=== PATIENT | male | born 1960 | race Caucasian/White ===

== ENCOUNTER 2022-11-26 14:33 | Outpatient (OUT) | payer MEDICARE, MEDICAID, SELFPAY ==
[2022-11-26 14:48] LABS: Basophils Absolute Auto 0.1 10^3/uL (0.0-0.1); Basophils Percent Auto 0.5 % (0.2-2.0); Eosinophils Absolute Auto 0.2 10^3/uL (0.0-0.7); Eosinophils Percent Auto 1.5 % (0.9-7.0); Hematocrit 34.3 % (42.0-54.0); Immature Granulocytes Abs Auto 0.08 10^3/uL (0.00-0.03); Immature Granulocytes Pct Auto 0.8 % (0.0-0.5); Lymphocytes Absolute Auto 2.3 10^3/uL (1.2-3.8); Lymphocytes Percent Auto 22.3 % (20.5-60.0); Mean Corpuscular HGB Conc 32.1 g/dL (29.9-35.2); Mean Corpuscular Hemoglobin 25.3 pg (25.9-34.0); Mean Corpuscular Volume 78.9 fL (80.0-94.0); Mean Platelet Volume 10.6 fL (9.5-13.5); Monocytes Absolute Auto 0.8 10^3/uL (0.3-0.8); Monocytes Percent Auto 7.9 % (1.7-12.0); Neutrophils Absolute Auto 6.9 10^3/uL (1.4-6.5); Platelet Count 305 10^3/uL (150-450); Red Blood Count 4.35 10^6/uL (4.70-6.10); Red Cell Distribution Width 16.6 % (11.0-15.0); White Blood Count 10.3 10^3/uL (4.0-11.0)
[2022-11-26 16:01] LABS: Alanine Aminotransferase 23 U/L (16-63); Albumin Globulin Ratio 0.9; Albumin Level 3.4 g/dL (3.4-5.0); Alkaline Phosphatase 87 U/L (46-116); Aspartate Amino Transferase 15 U/L (15-37); BUN Creatinine Ratio 24.5; Bilirubin Total 0.4 mg/dL (0.2-1.0); Calcium 8.9 mg/dL (8.5-10.1); Carbon Dioxide 28.2 mmol/L (21.0-32.0); Chloride 102 mmol/L (98-107); Estimated GFR (African America >60 (>=60); Estimated GFR (Non-African Ame 52 (>=60); Glucose 311 mg/dL (74-106); Potassium 4.2 mmol/L (3.5-5.1); Sodium 138 mmol/L (136-145); Total Protein 7.4 g/dL (6.4-8.2)
== END 2022-11-26 14:34 | disposition home or self-care (01) ==
LOC: LAB 14:37
PROVIDERS: PCP Family Medicine; Visit Provider Nurse Practitioner Acute Care
DX: I50.43 Acute on chronic combined systolic (congestive) and diastolic (congestive) heart failure (principal)
CPT/HCPCS: 36415; 80053; 83880; 85025

== ENCOUNTER 2022-12-12 12:18 | Outpatient (OUT) | payer MEDICARE, MEDICAID, SELFPAY ==
[2022-12-12 12:41] LABS: BUN Creatinine Ratio 30.5; Calcium 8.9 mg/dL (8.5-10.1); Carbon Dioxide 30.1 mmol/L (21.0-32.0); Chloride 97 mmol/L (98-107); Estimated GFR (African America >60 (>=60); Estimated GFR (Non-African Ame >60 (>=60); Glucose 152 mg/dL (74-106); Potassium 4.1 mmol/L (3.5-5.1); Sodium 133 mmol/L (136-145)
== END 2022-12-12 12:19 | disposition home or self-care (01) ==
PROVIDERS: PCP Family Medicine; Visit Provider Nurse Practitioner Acute Care
DX: I50.9 Heart failure, unspecified (principal)
CPT/HCPCS: 36415; 80048

== ENCOUNTER 2023-02-26 14:01 | Outpatient (RCR) | payer MEDICARE, MEDICAID, SELFPAY ==
[2023-02-26] MEDS: BUMETANIDE 1 MG/4 ML VIAL 2 MG IVP (14:26)
[2023-02-26 14:47] VITALS: BP 158/79; PULSE 80; RESP 24; TEMP 36.6; O2SAT 96
--- NOTE | 2023-02-26 14:50 | PC.NURSE ---
1410: Pt. to [facility] amb. accompanied by . Seated in recliner. VSS. Indwelling PICC line in place to right arm. Site without s&s of infiltration or infection. Able to aspirate blood easily, flushes easily. 1426: Medicated with Bumex 2mg ivp slow as ordered. Pt. requests PICC line dressing be changed. Old dressing to picc removed. Using sterile technique, site cleansed chlorhexadine. CHG oposite dressing applied over insertion site. Pt. tolerated without c/o. 1455: Pt. denies c/o or needs. VSS. D/c'd amb. to home with .
[2023-02-26 14:55] VITALS: BP 155/79; PULSE 78; RESP 20; O2SAT 97
== END 2023-03-10 23:59 | disposition home or self-care (01) ==
LOC: INF 14:01
PROVIDERS: PCP Family Medicine; Visit Provider Nurse Practitioner
DX: I50.43 Acute on chronic combined systolic (congestive) and diastolic (congestive) heart failure (principal)
CPT/HCPCS: 96374

== ENCOUNTER 2023-06-08 14:46 | Outpatient (RCR) | payer MEDICARE, MEDICAID, SELFPAY ==
[2023-06-08 14:50] VITALS: BP 150/85; PULSE 69; RESP 20; TEMP 36.4; O2SAT 977
[2023-06-08 15:14] VITALS: BP 150/85
[2023-06-08] MEDS: BUMETANIDE 1 MG/4 ML VIAL 2 MG IVP (15:14)
== END 2023-06-10 23:59 | disposition home or self-care (01) ==
LOC: INF 14:46
PROVIDERS: PCP Family Medicine; Visit Provider Internal Medicine Interventional Cardiology
DX: I50.43 Acute on chronic combined systolic (congestive) and diastolic (congestive) heart failure (principal)
CPT/HCPCS: 96374

== ENCOUNTER 2023-06-12 14:12 | Outpatient (OUT) | payer MEDICARE, MEDICAID, SELFPAY ==
[2023-06-12 14:38] LABS: Anion Gap 8.8; BUN Creatinine Ratio 27.4; Calcium 8.4 mg/dL (8.5-10.1); Chloride 106 mmol/L (98-107); Estimated GFR (African America >60 (>=60); Estimated GFR (Non-African Ame >60 (>=60); Glucose 109 mg/dL (74-106); Potassium 4.8 mmol/L (3.5-5.1); Sodium 138 mmol/L (136-145)
== END 2023-06-12 14:13 | disposition home or self-care (01) ==
PROVIDERS: PCP Family Medicine; Visit Provider Internal Medicine Interventional Cardiology
DX: I50.32 Chronic diastolic (congestive) heart failure (principal)
CPT/HCPCS: 36415; 80048

== ENCOUNTER 2023-08-05 12:58 | Outpatient (OUT) | payer MEDICARE, MEDICAID, SELFPAY ==
[2023-08-05 15:19] LABS: Anion Gap 12.8; BUN Creatinine Ratio 28.8; Calcium 9.3 mg/dL (8.5-10.1); Carbon Dioxide 32.2 mmol/L (21.0-32.0); Chloride 98 mmol/L (98-107); Estimated GFR (African America >60 (>=60); Estimated GFR (Non-African Ame >60 (>=60); Glucose 154 mg/dL (74-106); Sodium 139 mmol/L (136-145)
== END 2023-08-05 12:59 | disposition home or self-care (01) ==
LOC: LAB 13:02
PROVIDERS: PCP Family Medicine; Visit Provider Internal Medicine Interventional Cardiology
DX: I50.41 Acute combined systolic (congestive) and diastolic (congestive) heart failure (principal)
CPT/HCPCS: 36415; 80048

== ENCOUNTER 2023-11-09 14:35 | Outpatient (OUT) | payer MEDICARE, MEDICAID, SELFPAY ==
--- NOTE | 2023-11-09 | XR_ITS ---
The [address] [address] Patient Name: MATT HOWARD MRN: [id number] date: 1960 Sex: M Assigned Patient Location: Current Patient Location: Accession/Order Number: [id number] Exam Date: 11/09/2023 14:36 Report Date: 11/11/2023 06:29 At the request of: MIRIAN BRYAN Procedure: XR foot LT min 3V PROCEDURE: XR foot LT min 3V HISTORY: LEFT FOOT PAIN COMPARISON: None. FINDINGS: BONES:Prior amputation of first toe at the metatarsophalangeal joint. Partial loss of the tuft of second distal phalanx. SOFT TISSUES:Soft tissue swelling of second toe. Dorsal medial soft tissue swelling. EFFUSION:None visible. OTHER: Negative. XR/XR foot LT min 3V IMPRESSION: 1. Soft tissue swelling of second toe. Changes to the tip of the second distal phalanx may represent osteomyelitis or sequela of prior surgery. 2. Prior amputation of first toe. Electronically authenticated by: KARIN RDZ Date: 11/11/2023 06:29
== END 2023-11-09 14:36 | disposition home or self-care (01) ==
LOC: WC 14:36
PROVIDERS: PCP Family Medicine; Visit Provider Physician Assistant
DX: E11.621 Type 2 diabetes mellitus with foot ulcer (principal); L97.418 Non-pressure chronic ulcer of right heel and midfoot with other specified severity; L97.522 Non-pressure chronic ulcer of other part of left foot with fat layer exposed; M79.672 Pain in left foot
CPT/HCPCS: 11043; 73630

== ENCOUNTER 2023-11-10 13:30 | Outpatient (OUT) | payer MEDICARE, MEDICAID, SELFPAY | END 2023-11-10 13:31 | disposition home or self-care (01) | LOC: WC 13:30 | PROVIDERS: PCP Family Medicine; Visit Provider Podiatrist Foot & Ankle Surgery | DX: E11.621 Type 2 diabetes mellitus with foot ulcer (principal); L97.418 Non-pressure chronic ulcer of right heel and midfoot with other specified severity; L97.522 Non-pressure chronic ulcer of other part of left foot with fat layer exposed | CPT/HCPCS: G0463 ==

== ENCOUNTER 2023-11-10 14:17 | Inpatient (IN) | payer MEDICARE, MEDICAID, SELFPAY ==
[2023-11-10] VITALS (9 sets, daily range): BP systolic 149–187; BP diastolic 76–84; PULSE 71–110; TEMP 36.4–36.6; O2SAT 96–100; BMI 38.6; BMI 38.8
--- NOTE | 2023-11-10 14:18 | ED_ITS ---
HPI HPI - General Adult General Chief complaint: Wound/Laceration Stated complaint: WOUND CHECK Time Seen by Provider: 11/10/23 14:17 Source: patient Mode of arrival: walk-in Limitations: no limitations History of Present Illness HPI narrative: Patient is a 63-year-old male who presents to the emergency department at the recommendation of podiatry service for ER evaluation, admission and toe amputation tomorrow. Patient was seen in the office prior to arrival. He has a history of diabetes. 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 Patient reports that he has had hot and cold chills with decreased appetite and occasional vomiting over the last several days. His left second toe was debrided in the podiatry office and he was referred to the ER so he c ould be admitted for toe amputation. He has not had any significant drainage, he does report pain to the toe. No medications prior to arrival. He is anticoagulated with Eliquis. He was prescribed doxycycline and Augmentin yesterday by podiatry services. Related Data Home Medications ?Medication ?Instructions ?Recorded ?Confirmed amoxicillin 875 mg-potassium tab 11/10/23 clavulanate 125 mg tablet apixaban 5 mg tablet (Eliquis) mg 11/10/23 aspirin 81 mg tablet,delayed mg 11/10/23 release atorvastatin 80 mg tablet mg 11/10/23 bumetanide 1 mg tablet 1 mg PO Q12H 11/10/23 11/10/23 carvedilol 3.125 mg tablet mg 11/10/23 carvedilol 6.25 mg tablet mg 11/10/23 clonazepam 1 mg tablet mg 11/10/23 dapagliflozin propanediol 10 mg mg 11/10/23 tablet (Farxiga) daridorexant 25 mg tablet (Quviviq) mg PO 11/10/23 diclofenac sodium 1 % topical gel topical 11/10/23 diphenoxylate-atropine 2.5 tab 11/10/23 mg-0.025 mg tablet divalproex 125 mg tablet,delayed mg PO 11/10/23 release divalproex 500 mg tablet,delayed mg PO 11/10/23 release doxycycline hyclate 100 mg capsule mg 11/10/23 gabapentin 800 mg tablet mg 11/10/23 isosorbide mononitrate 30 mg mg PO 11/10/23 tablet,extended release 24 hr metformin 500 mg tablet mg 11/10/23 midodrine 5 mg tablet mg 11/10/23 moxifloxacin 0.5 % eye drops drp 11/10/23 [id number] 3.5 drp ophthalmic (eye) 11/10/23 mg/mL-10,000 unit/mL-0.1% eye drops nitroglycerin 0.4 mg sublingual mg 11/10/23 tablet ondansetron HCl 8 mg tablet mg 11/10/23 oxycodone 5 mg tablet mg 11/10/23 oxycodone myristate 18 mg capsule mg 11/10/23 sprinkle extended release 12hr(DON'T CRUSH) (Xtampza ER) pen needle, diabetic 32 gauge x 11/10/23 11/10/23 (Unifine Pentips) potassium chloride 20 mEq meq PO 11/10/23 tablet,extended release(part/cryst) prednisolone acetate 1 % eye drp ophthalmic (eye) 11/10/23 drops,suspension sacubitril 24 mg-valsartan 26 mg tab 11/10/23 tablet (Entresto) semaglutide 1 mg/dose (4 mg/3 mL) mg subcut 11/10/23 subcutaneous pen injector (Ozempic) spironolactone 50 mg tablet mg 11/10/23 tamsulosin 0.4 mg capsule mg PO 11/10/23 valacyclovir 1 gram tablet mg 11/10/23 Allergies Allergy/AdvReac Type Severity Reaction Status Date / Time metoclopramide [From Reglan] AdvReac Intermediate Rash Verified 11/10/23 14:29 polyethylene glycol AdvReac Intermediate Rash Verified 11/10/23 14:29 [From Golytely] polyethylene glycol 3350 AdvReac Intermediate Rash Verified 11/10/23 14:29 [From Golytely] potassium chloride AdvReac Intermediate Rash Verified 11/10/23 14:29 [From Golytely] promethazine [From Phenergan] AdvReac Intermediate rash Verified 11/10/23 14:29 sodium [From Golytely] AdvReac Intermediate Rash Verified 11/10/23 14:29 sodium bicarbonate AdvReac Intermediate Rash Verified 11/10/23 14:29 [From Golytely] sodium chloride AdvReac Intermediate Rash Verified 11/10/23 14:29 [From Golytely] sodium sulfate AdvReac Intermediate Rash Verified 11/10/23 14:29 [From Golytely] Sulfa (Sulfonamide AdvReac Intermediate Rash Verified 11/10/23 14:29 Antibiotics) Opioid HPI Opioid Management Most Recent Opioid Data: No Data to Display Review of Systems ROS Constitutional Denies: fever or chills Ears, nose, mouth, and throat Denies: throat pain or nasal congestion Respiratory Denies: shortness of breath Gastrointestinal Reports: nausea Musculoskeletal Denies: back pain or neck pain Integumentary/Breast Denies: rash Hematologic/Lymphatic Denies: easy bruising or easy bleeding Exam Narrative Exam Narrative: Gen.: Awake, alert, in no distress Head: Normocephalic, atraumatic ENT: Moist mucous membranes Respiratory: No respiratory distress Extremities: Moves extremities equally, Left great toe Surgically absent, left second toe with open purulent area distally secondary to debridement with no significant surrounding erythema Psych: Normal mood and affect Neuro: No focal neuro deficit Skin: Warm, dry, intact Constitutional Vital Signs, click to edit/add: Last Vital Signs Temp 97.9 F 11/10/23 14:23 Pulse 81 11/10/23 14:23 Resp 20 11/10/23 14:23 BP 187/84 H 11/10/23 14:23 Pulse Ox 97 11/10/23 14:23 Course Vital Signs Vital signs: Vital Signs Temperature 97.9 F 11/10/23 14:23 Pulse Rate 81 11/10/23 14:23 Respiratory Rate 20 11/10/23 14:23 Blood Pressure 187/84 H 11/10/23 14:23 Pulse Oximetry 97 11/10/23 14:23 Temperature 97.9 F 11/10/23 14:23 Pulse Rate 81 11/10/23 14:23 Respiratory Rate 20 11/10/23 14:23 Blood Pressure 187/84 H 11/10/23 14:23 Pulse Oximetry 97 11/10/23 14:23 Medical Decision Making [facility] Narrative Medical decision making narrative: Ultrasound-guided IV obtained, patient treated with Dilaudid and Zofran for comfort and given Zosyn, vancomycin. Discussed with hospitalist, Dr. Centeno and the patient will be admitted for antibiotics and toe amputation tomorrow. Labs, cultures obtained. SHARED APC VISIT, PHYSICIAN ATTESTATION: Khgy-pa-dney I performed a substantive part of the MDM during the patient?s E/M visit. I personally evaluated and examined the patient. I personally made or approved the documented management plan and acknowledge its risk of complications. Medical Records Medical records reviewed: Yes I reviewed the patient's medical records Discharge Plan Discharge Chief Complaint: Wound/Laceration Patient Disposition: Admitted As Inpatient Time of Disposition Decision: 14:57 Prescriptions / Home Meds: No Action atorvastatin 80 mg tablet aspirin 81 mg tablet,delayed release (DR/EC) bumetanide 1 mg tablet 1 mg PO Q12H amoxicillin-pot clavulanate 875-125 mg tablet Eliquis 5 mg tablet carvedilol 3.125 mg tablet metformin 500 mg tablet carvedilol 6.25 mg tablet doxycycline hyclate 100 mg capsule ondansetron HCl 8 mg tablet isosorbide mononitrate 30 mg tablet extended release 24 hr PO clonazepam 1 mg tablet midodrine 5 mg tablet diphenoxylate-atropine 2.5-0.025 mg tablet potassium chloride 20 mEq tablet,ER particles/crystals PO gabapentin 800 mg tablet nitroglycerin 0.4 mg tablet, sublingual oxycodone 5 mg tablet moxifloxacin 0.5 % drops diclofenac sodium 1 % gel TOPICAL Xtampza ER 18 mg cap,sprinkl,ER12hr(DONT CRUSH) Quviviq 25 mg tablet PO valacyclovir 1 gram tablet divalproex 500 mg tablet,delayed release (DR/EC) PO prednisolone acetate 1 % drops,suspension OPHTHALMIC (EYE) tamsulosin 0.4 mg capsule PO neomycin-polymyxin B-dexameth 3.5mg/mL-10,000 unit/mL-0.1 % drops,suspension OPHTHALMIC (EYE) divalproex 125 mg tablet,delayed release (DR/EC) PO spironolactone 50 mg tablet (DME) pen needle, diabetic [Unifine Pentips] 32 gauge x 5/32 needle MISCELLANEOUS dapagliflozin propanediol [Farxiga] 10 mg tablet Entresto 24-26 mg tablet Ozempic 1 mg/dose (4 mg/3 mL) pen injector SUBCUT Print Language: Telugu Referrals: Elin Liz MD [Primary Care Provider] - 1 week
[2023-11-10] MEDS: HYDROMORPHONE HCL 0.5 MG/0.5 ML SYRINGE IV (14:57)
[2023-11-10] MEDS: ONDANSETRON PF 4 MG/2 ML VIAL IV (14:57)
[2023-11-10] MEDS: PIPERACILLIN SODIUM/TAZOBACTAM 3.375 GM in 0.9 % SODIUM CHLORIDE 50 ML IV (14:57)
[2023-11-10] MEDS: 0.9 % SODIUM CHLORIDE 1,000 ML 200 ML IV (14:58)
[2023-11-10 15:06] LABS: Basophils Percent Auto 0.6 % (0.2-2.0); Eosinophils Absolute Auto 0.1 10^3/uL (0.0-0.7); Eosinophils Percent Auto 1.3 % (0.9-7.0); Hematocrit 29.7 % (42.0-54.0); Hemoglobin 9.4 g/dL (14.0-18.0); Immature Granulocytes Abs Auto 0.02 10^3/uL (0.00-0.03); Immature Granulocytes Pct Auto 0.3 % (0.0-0.5); Lymphocytes Percent Auto 28.5 % (20.5-60.0); Mean Corpuscular HGB Conc 31.6 g/dL (29.9-35.2); Mean Corpuscular Hemoglobin 26.3 pg (25.9-34.0); Mean Platelet Volume 11.3 fL (9.5-13.5); Monocytes Absolute Auto 0.5 10^3/uL (0.3-0.8); Neutrophils Absolute Auto 4.4 10^3/uL (1.4-6.5); Neutrophils Percent Auto 62.3 % (43.0-75.0); Platelet Count 231 10^3/uL (150-450); Red Blood Count 3.58 10^6/uL (4.70-6.10); Red Cell Distribution Width 15.2 % (11.0-15.0); White Blood Count 7.1 10^3/uL (4.0-11.0)
[2023-11-10 15:07] LABS: PCO2 VBG 37.7 mmHg (40.0-52.0); pH VBG 7.416 (7.330-7.430)
[2023-11-10 15:22] LABS: Alanine Aminotransferase 24 U/L (16-63); Albumin Globulin Ratio 0.8; Alkaline Phosphatase 79 U/L (46-116); Anion Gap 10.8; Aspartate Amino Transferase 19 U/L (15-37); Bilirubin Total 0.5 mg/dL (0.2-1.0); C Reactive Protein <0.50 mg/dL (<=0.50); Calcium 8.5 mg/dL (8.5-10.1); Carbon Dioxide 29.3 mmol/L (21.0-32.0); Chloride 104 mmol/L (98-107); Estimated GFR (African America >60 (>=60); Estimated GFR (Non-African Ame >60 (>=60); Glucose 110 mg/dL (74-106); Potassium 4.1 mmol/L (3.5-5.1); Sodium 140 mmol/L (136-145)
[2023-11-10 15:24] LABS: Prothrombin Time 10.6 sec (9.0-11.6)
[2023-11-10 15:25] LABS: Lactate/Lactic Acid 0.8 mmol/L (0.4-2.0)
--- NOTE | 2023-11-10 15:27 | P.HP_ITS ---
<Statement entered by Shaikh Taryn MD - 11/10/23 17:48> This documentation has been reviewed and approved.Patient not personally seen or interviewed. However, his chart was reviewed, and his case was discussed with ED provider, hospitalist [employer]. Agree with treatment plan. HPI H&P: HPI History of Present Illness Chief complaint: WOUND CHECK, Diabetic Toe Infection Narrative: 11/10/23 9229 This is a 63-year-old male patient with a complicated past medical history as outlined below including type II DM with history of multiple nonhealing diabetic wounds on his bilateral feet, CAD s/p ND x 4, CHF with unknown EF, hyperlipidemia, and A-fib; who presented to the ED directly from Dr Emery's office (podiatry) due to a nonhealing diabetic wound of his left second toe. The toe is likely gangrenous and amputation is planned for tomorrow per Dr Emery. Workup in the ED revealed anemia (9.4), with all other labs unremarkable. Imaging and wound cultures had been obtained in the outpatient podiatry office. Blood cultures x 2 were obtained in the ER and the patient is being admitted as an inpatient to the hospitalist service pending surgical intervention tomorrow per Dr Emery. At the time of my exam the patient is resting comfortably on his ED cart. His left second toe has a large wound on the end with purulent drainage and a foul odor. He has a boot in place on his right foot and reports that his right forefoot has been amputated completely after multiple toe amputations in the past, but has not been healing well since amputation in March. He also follows with Dr Emery for this wound as well. Due to the patient's sig nificant cardiac history, we will consult cardiology for preoperative cardiac evaluation. The patient reports that he had a 2D echo obtained within the last [address] Gomez ([facility]). We will obtain these records today if possible. Opioid HPI Opioid Management Most Recent Pain and Opioid Data: Last Pain Scale 8 11/10/23 14:57 Last MAR Pain Assessment 11/10/23 14:57 Last ORT Total Score 1 11/10/23 16:04 Last ORT Risk Category Low Risk 11/10/23 16:04 Review of Systems ROS Status of ROS 10 or more systems reviewed and unremark able except as noted in history and below [facility] Medical History (Updated 11/10/23 @ 16:46 by Verito Chávez) Cardiomegaly ?I51.7 - Cardiomegaly (ICD-10) Past heart attack ?I25.2 - Old myocardial infarction (ICD-10) DM neuropathy, type II diabetes mellitus ?E11.40 - Type 2 diabetes mellitus with diabetic neuropathy, unspecified (ICD-10) DM2 (diabetes mellitus, type 2) ?E11.9 - Type 2 diabetes mellitus without complications (ICD-10) A-fib ?I48.91 - Unspecified atrial fibrillation (ICD-10) CHF (congestive heart failure) ?I50.9 - Heart failure, unspecified (ICD-10) ROBYN (obstructive sleep apnea) ?G47.33 - Obstructive sleep apnea (adult) (pediatric) (ICD-10) COPD (chronic obstructive pulmonary disease) ?J44.9 - Chronic obstructive pulmonary disease, unspecified (ICD-10) CAD (coronary artery disease) ?I25.10 - Atherosclerotic heart disease of [place] coronary artery without angina pectoris (ICD-10) Surgical History (Updated 11/10/23 @ 16:46 by Verito Chávez) H/O skin graft ?Z94.5 - Skin transplant status (ICD-10) Amputated toe ?S98.139A - Complete traumatic amputation of one unspecified lesser toe, initial encounter (ICD-10) History of appendectomy ?Z90.49 - Acquired absence of other specified parts of digestive tract (ICD- 10) Gastric bypass status for obesity ?Z98.84 - Bariatric surgery status (ICD-10) Family History (Updated 11/10/23 @ 16:40 by Verito Chávez) Mother Family history of CHF (congestive heart failure) Family history of COPD (chronic obstructive pulmonary disease) Family history of cancer Family history of hypertension Family history of myocardial infarction Father Family history of CHF (congestive heart failure) Family history of COPD (chronic obstructive pulmonary disease) Family history of cancer Family history of hypertension Family history of myocardial infarction Family history of stroke Brother Family history of CHF (congestive heart failure) Family history of diabetes mellitus Family history of hypertension Family history of myocardial infarction Family history of stroke Sister Family history of diabetes mellitus Family history of hypertension Family history of myocardial infarction Social History (Updated 11/10/23 @ 16:41 by Verito Chávez) Within the past year, how often did you have a drink containing alcohol: never Score interpretation: A score less than 4 is consistent with normal alcohol consumption. Smoking status: Former smoker Non-prescribed substance use: denies use Previous occupational history: disabled Highest level of school completed/degree received: Associate degree: occupational, technical, vocational program Are you now , , , , never or living with a partner: Little interest or pleasure in doing things: not at all Feeling down, depressed, or hopeless: not at all Feel stressed/tense/nervous/anxious/difficulty sleeping: not at all Meds Home Medications and Allergies Home Medications ?Medication ?Instructions ?Recorded ?Confirmed ?Type amoxicillin 875 mg-potassium 1 tab PO BID 11/10/23 11/10/23 History clavulanate 125 mg tablet apixaban 5 mg tablet (Eliquis) 5 mg PO BID 11/10/23 11/10/23 History aspirin 81 mg tablet,delayed 81 mg PO .QD 11/10/23 11/10/23 History release atorvastatin 80 mg tablet 80 mg PO .QHS 11/10/23 11/10/23 History bumetanide 1 mg tablet 1 mg PO Q12H 11/10/23 11/10/23 History clonazepam 1 mg tablet 0.5 mg PO .QHS 11/10/23 11/10/23 History doxycycline hyclate 100 mg capsule 100 mg PO Q12H 11/10/23 11/10/23 History gabapentin 800 mg tablet 800 mg PO Q8H 11/10/23 11/10/23 History isosorbide mononitrate 30 mg 90 mg PO .QD 11/10/23 11/10/23 History tablet,extended release 24 hr metformin 500 mg tablet 500 mg PO BIDWM 11/10/23 11/10/23 History moxifloxacin 0.5 % eye drops 1 drp ophthalmic (eye) QID 11/10/23 11/10/23 History nitroglycerin 0.4 mg sublingual 0.4 mg sublingual Q5M PRN chest 11/10/23 11/10/23 History tablet pain ondansetron HCl 8 mg tablet 8 mg PO Q8H PRN nausea and vomiting 11/10/23 11/10/23 History oxycodone 5 mg tablet 5 mg PO Q8H PRN pain 11/10/23 11/10/23 History oxycodone myristate 18 mg capsule 18 mg PO Q12H 11/10/23 11/10/23 History sprinkle extended release 12hr(DON'T CRUSH) (Xtampza ER) pen needle, diabetic 32 gauge x 11/10/23 11/10/23 History 5/32 (Unifine Pentips) potassium chloride 20 mEq 20 meq PO BID 11/10/23 11/10/23 History tablet,extended release(part/cryst) prednisolone acetate 1 % eye 1 drp ophthalmic (eye) Q12H 11/10/23 11/10/23 History drops,suspension sacubitril 24 mg-valsartan 26 mg 1 tab PO BID 11/10/23 11/10/23 History tablet (Entresto) spironolactone 50 mg tablet 50 mg PO .QD 11/10/23 11/10/23 History valacyclovir 1 gram tablet 500 mg PO Q8H 11/10/23 11/10/23 History Allergies Allergy/AdvReac Type Severity Reaction Status Date / Time metoclopramide [From Reglan] AdvReac Intermediate Rash Verified 11/10/23 14:29 polyethylene glycol AdvReac Intermediate Rash Verified 11/10/23 14:29 [From Golytely] polyethylene glycol 3350 AdvReac Intermediate Rash Verified 11/10/23 14:29 [From Golytely] potassium chloride AdvReac Intermediate Rash Verified 11/10/23 14:29 [From Golytely] promethazine [From Phenergan] AdvReac Intermediate rash Verified 11/10/23 14:29 sodium [From Golytely] AdvReac Intermediate Rash Verified 11/10/23 14:29 sodium bicarbonate AdvReac Intermediate Rash Verified 11/10/23 14:29 [From Golytely] sodium chloride AdvReac Intermediate Rash Verified 11/10/23 14:29 [From Golytely] sodium sulfate AdvReac Intermediate Rash Verified 11/10/23 14:29 [From Golytely] Sulfa (Sulfonamide AdvReac Intermediate Rash Verified 11/10/23 14:29 Antibiotics) Exam Constitutional Vital Signs, click to edit/add: Last Vital Signs Temp 97.9 F 11/10/23 14:23 Pulse 81 11/10/23 14:23 Resp 20 11/10/23 14:23 BP 187/84 H 11/10/23 14:23 Pulse Ox 97 11/10/23 14:23 Common normals: no apparent distress, oriented x3, alert and well nourished General appearance: cooperative Nutritional appearance: overweight Orientation/consciousness: Yes awake HENMT Common normals: normocephalic, head/scalp atraumatic, hearing grossly normal bilaterally, external nose normal and moist oral mucous membranes Eye Common normals: PERRL, EOMs intact bilaterally, conjunctivae normal and no scleral icterus Alignment: alignment normal Eyelid: eyelids normal Neck & C-Spine Common normals: full ROM, supple and no JVD Chest Common normals: inspection of chest normal Chest: symmetrical chest wall rise Respiratory Common normals: normal respiratory effort, no retractions, no use of accessory muscles and clear to auscultation bilaterally Auscultation: diminished lung sounds (Very diminished throughout, but no visible dyspnea or distress) Cardio Common normals: no JVD, regular rate, regular rhythm, S1 normal heart sound, S2 normal heart sound, no gallops, no clicks, no rub and peripheral pulses 2+ throughout Heart sounds: murmur (HSM 2/6) GI Common normals: Normal to inspection, nondistended, normoactive bowel sounds present, soft to palpation, non-tender, no hepatosplenomegaly, no masses and no bruits Bladder/kidney exam: bladder normal to palpation Extremity General: no cyanosis Right lower extremity: foot and digits (Prev forefoot amputation) Left lower extremity: foot and digits (Prev L gr toe amp. L 2nd toe w/ distal gangrenous wound) Other: BLE venous stasis dermatitis Neuro Helen Coma Scale: GCS not evaluated Common normals: CN's II-XII intact bilaterally, moves all extremities, no focal motor deficits and no sensory deficits noted Speech: speech normal Psych Common normals: mental status grossly normal, thought process normal, affect normal and activity/motor behavior normal Results Labs Labs: Short CBC 11/10/23 Range/Units 14:52 WBC 7.1 (4.0-11.0) 10^3/uL Hgb 9.4 L (14.0-18.0) g/dL Hct 29.7 L (42.0-54.0) % Plt Count 231 (150-450) 10^3/uL Laboratory Tests 11/10/23 14:52 INR 1.00 VBG pH 7.416 VBG pCO2 37.7 L Sodium 140 Potassium 4.1 Chloride 104 Carbon Dioxide 29.3 Anion Gap 10.8 BUN 19.0 H Creatinine 0.95 Est GFR (Non-Af Amer) >60 BUN/Creatinine Ratio 20.0 Glucose 110 H Lactate 0.8 Calcium 8.5 Total Bilirubin 0.5 AST 19 ALT 24 Alkaline Phosphatase 79 C-Reactive Protein <0.50 Total Protein 7.0 Albumin 3.0 L Globulin 4.0 Albumin/Globulin Ratio 0.8 Procalcitonin <0.05 ABG ABG results: 11/10/23 14:52 VBG pH 7.416 VBG pCO2 37.7 L Pulse Oximetry Attestation: I have reviewed the pertinent pulse oximetry results. Assessment and Plan Assessment and Plan (1) Diabetic ulcer of toe: Assessment and Plan: Chronic * Adm Inpatient * We expect greater than a 2 midnight stay for medically necessary hospital care including: IVPB antibiotics, specialty podiatry care and surgical intervention, close nursing monitoring of pre and post operative wound, specialty cardiac preop evaluation. * Non-healing DM wound of the L 2nd distal toe - suspect gangrenous * C/S Dr Emery for planned amputation tomorrow - we appreciate his assistance with this pt's care * Defer all post op pain meds, WB and PT/OT orders, DVT prophylaxis to the podiatry team * IVPB Zosyn and Vanco (pharm to dose) - failed multiple outpatient PO antibiotics including most recently Doxy/Augmentin * PO Oxycodone & IVP Morphine for pre-op pain management * LR at 75 ml/hr - Gentle IVF in pt w/ CHF hx on a 2L daily fluid restriction * NPO at midnight * Daily CBC, CMP (2) CAD (coronary artery disease): Assessment and Plan: Chronic * s/p ND x 4 - denies CP currently * Obtain an EKG for pre-op evaluation * Cardiology consult for pre-op cardiology eval. * Follows outpatient with Dr Gomez w/ [facility] * Continue home daily ASA, statin, Entresto, Imdur, Coreg (3) COPD (chronic obstructive pulmonary disease): Assessment and Plan: Chronic * Duoneb q4h PRN * Does not appear to be in exacerbation at this time (4) ROBYN (obstructive sleep apnea): Assessment and Plan: Chronic * Continue home CPAP w/ O2 bled in at 2L at [facility] (5) CHF (congestive heart failure): Assessment and Plan: Chronic * Unknown EF - Obtain most recent 2D Echo from [facility] (Done in ) * Continue home Entresto, spironolactone, and bumex * Continue home 2L fluid restriction * Gentle IVF at 75/hr * Daily weights/strict I&O (6) A-fib: Assessment and Plan: Chronic * Continue home Coreg for rate control * Hold home Eliquis for surgery tomorrow * Last Eliquis dose on 11/09/23 AM dose (7) DM2 (diabetes mellitus, type 2): Assessment and Plan: Chronic * Continue home metformin * ACHS glucometer checks * Med CC diet * Med SSI glucose correction scale (8) DM neuropathy, type II diabetes mellitus: Assessment and Plan: Chronic * Continue home gabapentin
[2023-11-10 15:39] LABS: PROCALCITONIN <0.05 ng/mL (0.00-0.50)
[2023-11-10] MEDS: VANCOMYCIN HCL 2,000 MG in 0.9 % SODIUM CHLORIDE 500 ML 250 MG IV (16:05)
--- NOTE | 2023-11-10 16:20 | ECG_ITS ---
[facility] Test Date: 2023-11-10 Pat Name: MATT HOWARD Department: Room: [facility] Gender: Male [facility] [employer]: : 1960 Requested By: SURAJ LLANOS Order Number: [id number] Reading MD: JONY MITTAL Measurements Intervals [place] Rate: 74 P: NE: 200 QRS: 2 QRSD: 107 T: 42 QT: 385 QTc: 427 Interpretive Statements Sinus rhythm with first degree AV block LOW QRS VOLTAGE IN PRECORDIAL LEADS [QRS DEFLECTION < 1.0 mV IN CHEST LEADS] No previous ECG available for comparison Electronically Signed On 11-11-2023 6:57:48 EDT by JONY MITTAL
[2023-11-10] MEDS: LACTATED RINGER'S SOLUTION 1,000 ML 75 ML IV (16:56)
--- NOTE | 2023-11-10 17:33 | DIETREC ---
Current diet order: 1800 kcal CCD. Recommend add Heart Healthy (includes sodium, fat, and caffeine restrictions) to diet order d/t pt's cardiac history.
[2023-11-10] MEDS: OXYCODONE HCL 5 MG TABLET PO (18:51)
--- NOTE | 2023-11-10 20:01 | RESP.RT ---
No PRN breathing tx given. Pt denies need no respiratory distress noted.
--- NOTE | 2023-11-10 20:23 | RESP.RT ---
RT set up patients HOME BIPAP/CPAP with 3L 02 bleed in. This is what patient wears at home.
[2023-11-10 20:54] LABS: Glucometer 213 mg/dL (74-106)
[2023-11-10] MEDS: MORPHINE SULFATE 2 MG/ML SYRINGE IV (21:17)
[2023-11-10] MEDS: GABAPENTIN 400 MG CAPSULE 800 MG PO (21:46)
[2023-11-10] MEDS: CARVEDILOL 6.25 MG TABLET PO (21:47)
[2023-11-10] MEDS: BUMETANIDE 1 MG TABLET 3 MG PO (21:47)
[2023-11-10] MEDS: CLONAZEPAM 0.5 MG TABLET 1 MG PO (21:47)
[2023-11-10] MEDS: SACUBITRIL/VALSARTAN 24 MG-26 MG TABLET 1 TAB PO (21:47)
[2023-11-10] MEDS: POTASSIUM CHLORIDE 10 MEQ ER TABLET 20 MEQ PO (21:47)
[2023-11-10] MEDS: ATORVASTATIN CALCIUM 40 MG TABLET 80 MG PO (21:47)
[2023-11-10] MEDS: CLONAZEPAM 0.5 MG TABLET PO (21:47)
[2023-11-10] MEDS: PREDNISOLONE ACETATE OP 1% SUSP 100 DROPS/5 ML 1 DROP OP (21:48)
[2023-11-10] MEDS: MOXIFLOXACIN HCL 0.5% OP 60 DROP/3 ML BOTTLE OP (21:48)
[2023-11-10] MEDS: INSULIN ASPART 300 UNIT/3 ML PEN SUBQ (21:53)
[2023-11-11] VITALS (19 sets, daily range): BP systolic 129–165; BP diastolic 68–94; PULSE 69–87; TEMP 36.4–36.6; O2SAT 92–99
[2023-11-11] MEDS: PIPERACILLIN SODIUM/TAZOBACTAM 3.375 GM in 0.9 % SODIUM CHLORIDE 50 ML IV ×3 (00:19→23:18)
[2023-11-11 04:34] LABS: Basophils Absolute Auto 0.1 10^3/uL (0.0-0.1); Basophils Percent Auto 0.8 % (0.2-2.0); Eosinophils Absolute Auto 0.2 10^3/uL (0.0-0.7); Eosinophils Percent Auto 2.9 % (0.9-7.0); Hematocrit 31.5 % (42.0-54.0); Hemoglobin 9.8 g/dL (14.0-18.0); Immature Granulocytes Abs Auto 0.01 10^3/uL (0.00-0.03); Immature Granulocytes Pct Auto 0.2 % (0.0-0.5); Lymphocytes Absolute Auto 1.8 10^3/uL (1.2-3.8); Lymphocytes Percent Auto 29.9 % (20.5-60.0); Mean Corpuscular HGB Conc 31.1 g/dL (29.9-35.2); Mean Corpuscular Hemoglobin 26.1 pg (25.9-34.0); Mean Corpuscular Volume 83.8 fL (80.0-94.0); Mean Platelet Volume 11.3 fL (9.5-13.5); Monocytes Absolute Auto 0.4 10^3/uL (0.3-0.8); Neutrophils Absolute Auto 3.6 10^3/uL (1.4-6.5); Neutrophils Percent Auto 59.2 % (43.0-75.0); Platelet Count 243 10^3/uL (150-450); Red Blood Count 3.76 10^6/uL (4.70-6.10); Red Cell Distribution Width 15.3 % (11.0-15.0); White Blood Count 6.2 10^3/uL (4.0-11.0)
[2023-11-11 04:40] LABS: Estimated Average Glucose 166 mg/dL; Glycohemoglobin A1C 7.4 % (4.5-6.2)
[2023-11-11 04:54] LABS: Alanine Aminotransferase 22 U/L (16-63); Albumin Globulin Ratio 0.8; Alkaline Phosphatase 83 U/L (46-116); Anion Gap 11.1; Aspartate Amino Transferase 18 U/L (15-37); Bilirubin Total 0.5 mg/dL (0.2-1.0); Calcium 9.3 mg/dL (8.5-10.1); Carbon Dioxide 27.8 mmol/L (21.0-32.0); Chloride 106 mmol/L (98-107); Estimated GFR (African America >60 (>=60); Estimated GFR (Non-African Ame >60 (>=60); Glucose 98 mg/dL (74-106); Potassium 3.9 mmol/L (3.5-5.1); Sodium 141 mmol/L (136-145)
[2023-11-11] MEDS: MOXIFLOXACIN HCL 0.5% OP 60 DROP/3 ML BOTTLE OP ×4 (05:48→21:17)
[2023-11-11] MEDS: GABAPENTIN 400 MG CAPSULE 800 MG PO ×2 (05:48→23:17)
--- NOTE | 2023-11-11 08:51 | P.CN_ITS ---
<Statement entered by RAJEEV BRISENO - 11/14/23 08:02> This documentation has been reviewed and approved. Consult Note: HPI Data of Consult Patient: known to practice within the last 3 years Consult date: 11/11/23 Requesting Physician: Shaikh Taryn MD Primary Care Provider: Elin Liz MD Consult Narrative Reason for consult: Pre op cardiovascular risk stratification Narrative: 63 yo male well known to Cardiology for Chronic Diastolic heart failure [place] 3, type II DM with history of multiple nonhealing diabetic wounds on his bilateral feet, CAD s/p SC x 4, hyperlipidemia, and A-fib. Presented to ED from Dr Nevarez office for concerns of gangrene to Lt second toe and plans for surgery at [facility] with possible amputation of second toe or maybe TMA. Denied chest pain, reports typical SOB and orthopnea. States leg swelling is up. C/O acute pain of Lt foot and pain medication is not enough overnight. Denied fever, chills, N/v/D cc:: CC: Shaikh Taryn MD Review of Systems ROS Status of ROS 10 or more systems reviewed and unremark able except as noted in history and below [facility] Medical History (Updated 11/11/23 @ 09:03 by NATHAN DORMAN) Cardiomegaly ?I51.7 - Cardiomegaly (ICD-10) Past heart attack ?I25.2 - Old myocardial infarction (ICD-10) DM neuropathy, type II diabetes mellitus ?E11.40 - Type 2 diabetes mellitus with diabetic neuropathy, unspecified (ICD-10) DM2 (diabetes mellitus, type 2) ?E11.9 - Type 2 diabetes mellitus without complications (ICD-10) A-fib ?I48.91 - Unspecified atrial fibrillation (ICD-10) CHF (congestive heart failure) ?I50.9 - Heart failure, unspecified (ICD-10) ROBYN (obstructive sleep apnea) ?G47.33 - Obstructive sleep apnea (adult) (pediatric) (ICD-10) COPD (chronic obstructive pulmonary disease) ?J44.9 - Chronic obstructive pulmonary disease, unspecified (ICD-10) CAD (coronary artery disease) ?I25.10 - Atherosclerotic heart disease of [place] coronary artery without angina pectoris (ICD-10) Surgical History H/O skin graft ?Z94.5 - Skin transplant status (ICD-10) Amputated toe ?S98.139A - Complete traumatic amputation of one unspecified lesser toe, initial encounter (ICD-10) History of appendectomy ?Z90.49 - Acquired absence of other specified parts of digestive tract (ICD- 10) Gastric bypass status for obesity ?Z98.84 - Bariatric surgery status (ICD-10) Family History Mother Family history of CHF (congestive heart failure) Family history of COPD (chronic obstructive pulmonary disease) Family history of cancer Family history of hypertension Family history of myocardial infarction Father Family history of CHF (congestive heart failure) Family history of COPD (chronic obstructive pulmonary disease) Family history of cancer Family history of hypertension Family history of myocardial infarction Family history of stroke Brother Family history of CHF (congestive heart failure) Family history of diabetes mellitus Family history of hypertension Family history of myocardial infarction Family history of stroke Sister Family history of diabetes mellitus Family history of hypertension Family history of myocardial infarction Social History Within the past year, how often did you have a drink containing alcohol: never Score interpretation: A score less than 4 is consistent with normal alcohol consumption. Smoking status: Former smoker Non-prescribed substance use: denies use Previous occupational history: disabled Highest level of school completed/degree received: Associate degree: occupational, technical, vocational program Are you now , , , , never or living with a partner: Little interest or pleasure in doing things: not at all Feeling down, depressed, or hopeless: not at all Feel stressed/tense/nervous/anxious/difficulty sleeping: not at all Meds Home Medications and Allergies Home Medications ?Medication ?Instructions ?Recorded ?Confirmed ?Type amoxicillin 875 mg-potassium 1 tab PO BID 11/10/23 11/10/23 History clavulanate 125 mg tablet apixaban 5 mg tablet (Eliquis) 5 mg PO BID 11/10/23 11/10/23 History aspirin 81 mg tablet,delayed 81 mg PO .QD 11/10/23 11/10/23 History release atorvastatin 80 mg tablet 80 mg PO .QHS 11/10/23 11/10/23 History bumetanide 1 mg tablet 3 mg PO Q12H 11/10/23 11/10/23 History carvedilol 6.25 mg tablet (Coreg) 6.25 mg PO BID 11/10/23 11/10/23 History clonazepam 1 mg tablet 0.5 mg PO .QHS 11/10/23 11/10/23 History diclofenac sodium 1 % topical gel 2 g topical Q4H PRN to each 11/10/23 11/10/23 History affected area gabapentin 800 mg tablet 800 mg PO Q8H 11/10/23 11/10/23 History isosorbide mononitrate 30 mg 90 mg PO .QD 11/10/23 11/10/23 History tablet,extended release 24 hr metformin 500 mg tablet 500 mg PO BIDWM 11/10/23 11/10/23 History moxifloxacin 0.5 % eye drops 1 drp ophthalmic (eye) QID 11/10/23 11/10/23 History nitroglycerin 0.4 mg sublingual 0.4 mg sublingual Q5M PRN chest 11/10/23 11/10/23 History tablet pain oxycodone 5 mg tablet 5 mg PO Q8H PRN pain 11/10/23 11/10/23 History oxycodone myristate 18 mg capsule 18 mg PO Q12H 11/10/23 11/10/23 History sprinkle extended release 12hr(DON'T CRUSH) (Xtampza ER) pen needle, diabetic 32 gauge x 11/10/23 11/10/23 History (Unifine Pentips) potassium chloride 20 mEq 20 meq PO BID 11/10/23 11/10/23 History tablet,extended release(part/cryst) prednisolone acetate 1 % eye 1 drp ophthalmic (eye) Q12H 11/10/23 11/10/23 History drops,suspension sacubitril 24 mg-valsartan 26 mg 1 tab PO BID 11/10/23 11/10/23 History tablet (Entresto) spironolactone 50 mg tablet 50 mg PO .QD 11/10/23 11/10/23 History Allergies Allergy/AdvReac Type Severity Reaction Status Date / Time metoclopramide [From Reglan] AdvReac Intermediate Rash Verified 11/10/23 14:29 polyethylene glycol AdvReac Intermediate Rash Verified 11/10/23 14:29 [From Golytely] polyethylene glycol 3350 AdvReac Intermediate Rash Verified 11/10/23 14:29 [From Golytely] potassium chloride AdvReac Intermediate Rash Verified 11/10/23 14:29 [From Golytely] promethazine [From Phenergan] AdvReac Intermediate rash Verified 11/10/23 14:29 sodium [From Golytely] AdvReac Intermediate Rash Verified 11/10/23 14:29 sodium bicarbonate AdvReac Intermediate Rash Verified 11/10/23 14:29 [From Golytely] sodium chloride AdvReac Intermediate Rash Verified 11/10/23 14:29 [From Golytely] sodium sulfate AdvReac Intermediate Rash Verified 11/10/23 14:29 [From Golytely] Sulfa (Sulfonamide AdvReac Intermediate Rash Verified 11/10/23 14:29 Antibiotics) Exam Constitutional Vital Signs, click to edit/add: Last Vital Signs Temp 97.6 F 11/11/23 05:33 Pulse 75 11/11/23 07:59 Resp 18 11/11/23 05:33 BP 165/93 H 11/11/23 05:33 Pulse Ox 97 11/11/23 05:33 O2 Del Method Room Air 11/11/23 05:33 O2 Flow Rate 3 11/11/23 04:22 Common normals: oriented x3 General appearance: cooperative Nutritional appearance: obese Other: Chronically ill Respiratory Common normals: normal respiratory effort, no use of accessory muscles and clear to auscultation bilaterally Cardio Common normals: no JVD, regular rate, regular rhythm, S1 normal heart sound and S2 normal heart sound Extremity Other: Dressing intact to Lt distal foot, 2+ b/L DP and PT pulses. 2-3+ pitting edema BLE Neuro Common normals: oriented x3, CN's II-XII intact bilaterally and moves all extremities Psych Common normals: thought process normal and cooperative Results Labs Labs: Short CBC 11/10/23 11/11/23 Range/Units 14:52 04:13 WBC 7.1 6.2 (4.0-11.0) 10^3/uL Hgb 9.4 L 9.8 L (14.0-18.0) g/dL Hct 29.7 L 31.5 L (42.0-54.0) % Plt Count 231 243 (150-450) 10^3/uL BMP 07/02/24 07/03/24 14:52 04:13 Sodium 140 141 Potassium 4.1 3.9 Chloride 104 106 Carbon Dioxide 29.3 27.8 BUN 19.0 H 16.0 Creatinine 0.95 0.94 Glucose 110 H 98 Calcium 8.5 9.3 Liver Function 11/10/23 11/11/23 Range/Units 14:52 04:13 Total Bilirubin 0.5 0.5 (0.2-1.0) mg/dL AST 19 18 (15-37) U/L ALT 24 22 (16-63) U/L Alkaline Phosphatase 79 83 (46-116) U/L Albumin 3.0 L 3.0 L (3.4-5.0) g/dL ABG ABG results: 11/10/23 14:52 VBG pH 7.416 VBG pCO2 37.7 L ECG ECG interpretation date: 11/10/23 Interpretation: Interpretive Statements Sinus rhythm with first degree AV block LOW QRS VOLTAGE IN PRECORDIAL LEADS [QRS DEFLECTION < 1.0 mV IN CHEST LEADS] No previous ECG available for comparison Electronically Signed On 11-11-2023 6:57:48 EDT by JONY MITTAL Assessment and Plan Assessment and Plan (1) Diabetic ulcer of toe: Assessment and Plan: managed by primary service and podiatry Vascular/wound care at [facility] updated on pt status and states that if toe appears to be wet gangrene, purulent drainage or s/s of infection he may need to transfer to [facility] for management, otherwise pt may F/U next week in wound care clinic for further management Primary service GABRIEL Ornelas notified and updated (2) CAD (coronary artery disease): Assessment and Plan: Currently stable without acute concerns COntinue GDMT Qualifiers: Coronary Disease-Associated Artery/Lesion type: [place] artery [place] vs. transplanted heart: [place] heart Associated angina: without angina Qualified Code(s): I25.10 - Atherosclerotic heart disease of [place] coronary artery without angina pectoris (3) COPD (chronic obstructive pulmonary disease): (4) ROBYN (obstructive sleep apnea): (5) CHF (congestive heart failure): Assessment and Plan: Currently BNP is normal, no acute exacerbation noted Continue bumex- will give IV dose today in light of fluid given in ED and then resume 3 mg po bid, entresto and aldactone No SGLT2I in light of recurrent DFU Qualifiers: Heart failure type: diastolic Heart failure chronicity: chronic Qualified Code(s): I50.32 - Chronic diastolic (congestive) heart failure (6) A-fib: Assessment and Plan: Continue eliquis anticoagulation rate currently controlled- continue coreg 6.25 mg po bid Qualifiers: Atrial fibrillation type: paroxysmal Qualified Code(s): I48.0 - Paroxysmal atrial fibrillation (7) DM2 (diabetes mellitus, type 2): Assessment and Plan: managed by primary service (8) DM neuropathy, type II diabetes mellitus: (9) Pre-operative cardiovascular examination: Assessment and Plan: From a cardiology perspective pt may proceed with surgery with knowledge he is a high risk for low risk surgery with h/o CHF, CAD, DM- uncontrolled Please monitor hemodynamics carefully and prevent major fluid shifts. May to hold eliquis 2-3 days prior if needed. RCRI= 3?points Class IV Risk 15.0?% 30-day risk of , SC, or cardiac arrest Plan as above
[2023-11-11] MEDS: MORPHINE SULFATE 4 MG/ML VIAL IM (09:24)
[2023-11-11] MEDS: CARVEDILOL 6.25 MG TABLET PO ×2 (09:24→21:08)
[2023-11-11] MEDS: PREDNISOLONE ACETATE OP 1% SUSP 100 DROPS/5 ML 1 DROP OP ×2 (09:31→21:16)
[2023-11-11 11:15] LABS: Glucometer 141 mg/dL (74-106)
--- NOTE | 2023-11-11 11:39 | SWNOTE1 ---
SW met with pt to discuss dc needs. Pt lives at home with his significant other. Pt's S.O. is a nurse practitioner for the [employer]. Pt has a rollator he uses at home and a home cpap. Pt voiced that it was a terrible night last night due to his pain and issues he had with nursing. He has voiced his issues to the Nurse Practitioner and SW advised patient that SW will inform the director of Med/Surge. SW did speak with him about home health, he voiced any care he needs his S.O. will care for him at home. At this time no anticipated discharge needs. He has had seveal surgeries and plan is to go to surgery today at 3:00pm. SW to check back with pt later today after surgery or tomorrow.
--- NOTE | 2023-11-11 11:42 | SWNOTE1 ---
Important Message from Medicare reviewed and discussed with patient. Pt. verbalized understanding and signed the form. Original given to patient and copy placed in patient?s chart.
--- NOTE | 2023-11-11 11:52 | CM.NOTE ---
Rounds made with Dr. Centeno. Dr. Centeno discussed plan of care and need for PICC line, cardiology consult and that Dr. Emery will be in later to discuss possibly doing procedure under local due to his multiple health issues. Bi discussed with Dr. Centeno issues he had with some of the nursing staff. Dr. Centeno told patient that the nursing supervisor throwing department is aware and will address this. No plan for discharge today.
--- NOTE | 2023-11-11 13:02 | P.PN_ITS ---
<Statement entered by Shaikh Taryn MD - 11/11/23 15:41> This documentation has been reviewed and approved. Seen and examined. Agree with clinical documentation ,treatment plan. Appreciate input from Cardiology. Patient scheduled for toe amputation in the afternoon. F/u podaitry rec regarding post op plan of care. Progress Note: Subjective Subjective Interval history: 11/11/23 0855 The patient is sitting up in a bedside chair visiting with his spouse at the time of my exam. He reports being unhappy with his pain management overnight as his IV went subcu and nursing was unable to start a new IV. As most of his pain management strategy was IV based we were unable to keep ahead of his chronic neuropathic and osteomyelitis pain. After his pain needs were adequately addressed the patient was more content. 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 At this point he will likely continue with the plan for a left second toe amputation per Dr Emery later this afternoon. A PICC line will be placed prior to that so he has adequate IV access throughout his stay. Exam Constitutional Vital Signs, click to edit/add: Last Vital Signs Temp 97.6 F 11/11/23 05:33 Pulse 70 11/11/23 11:44 Resp 18 11/11/23 05:33 BP 165/93 H 11/11/23 05:33 Pulse Ox 97 11/11/23 11:30 O2 Del Method Room Air 11/11/23 11:30 O2 Flow Rate 3 11/11/23 04:22 Common normals: no apparent distress, oriented x3, alert and well nourished Nutritional appearance: overweight Orientation/consciousness: Yes awake [facility] Common normals: normocephalic, head/scalp atraumatic, hearing grossly normal bilaterally, external nose normal and moist oral mucous membranes Eye Common normals: PERRL, EOMs intact bilaterally, conjunctivae normal and no scleral icterus Chest Common normals: inspection of chest normal Chest: symmetrical chest wall rise Respiratory Common normals: normal respiratory effort, no retractions, no use of accessory muscles and clear to auscultation bilaterally Auscultation: diminished lung sounds (Very diminished throughout, but no visible dyspnea or distress) Cardio Common normals: no JVD, regular rate, regular rhythm, S1 normal heart sound, S2 normal heart sound, no gallops, no clicks, no rub and peripheral pulses 2+ throughout GI Common normals: Normal to inspection, nondistended, normoactive bowel sounds present, soft to palpation, non-tender, no hepatosplenomegaly, no masses and no bruits Bladder/kidney exam: bladder normal to palpation Extremity General: no cyanosis Right lower extremity: foot and digits (Prev forefoot amputation) Left lower extremity: foot and digits (Prev L gr toe amp. L 2nd toe w/ distal dry gangrenous wound) Other: BLE venous stasis dermatitis Neuro Common normals: CN's II-XII intact bilaterally and moves all extremities Psych Common normals: mental status grossly normal, thought process normal and affect normal Progress Note: Objective Labs Labs: Short CBC 11/10/23 11/11/23 Range/Units 14:52 04:13 WBC 7.1 6.2 (4.0-11.0) 10^3/uL Hgb 9.4 L 9.8 L (14.0-18.0) g/dL Hct 29.7 L 31.5 L (42.0-54.0) % Plt Count 231 243 (150-450) 10^3/uL BMP 11/10/23 11/11/23 14:52 04:13 Sodium 140 141 Potassium 4.1 3.9 Chloride 104 106 Carbon Dioxide 29.3 27.8 BUN 19.0 H 16.0 Creatinine 0.95 0.94 Glucose 110 H 98 Calcium 8.5 9.3 Liver Function 11/10/23 11/11/23 Range/Units 14:52 04:13 Total Bilirubin 0.5 0.5 (0.2-1.0) mg/dL AST 19 18 (15-37) U/L ALT 24 22 (16-63) U/L Alkaline Phosphatase 79 83 (46-116) U/L Albumin 3.0 L 3.0 L (3.4-5.0) g/dL Progress Note: A&P Assessment and Plan (1) Diabetic ulcer of toe: Assessment and Plan: Chronic * Non-healing DM wound of the L 2nd distal toe - suspect gangrenous * C/S Dr Emery - we appreciate his assistance with this pt's care * Amputation planned for this afternoon, likely under local anesthesia w/ sedation d/t high cardiac risk * Defer all post op pain meds, WB and PT/OT orders, DVT prophylaxis to the podiatry team * Continue IVPB Zosyn and Vanco (pharm to dose) - failed multiple outpatient PO antibiotics including most recently Doxy/Augmentin * PO Scheduled Oxycontin, Oxycodone IR PRN & IVP Morphine PRN for pre-op pain management * Continue LR at 75 ml/hr - Gentle IVF in pt w/ CHF hx on a 2L daily fluid restriction * Plan to d/c post operatively once pt is able to eat * NPO pending surgery today * Daily CBC, CMP (2) CAD (coronary artery disease): Assessment and Plan: Chronic * s/p AL x 4 - denies CP currently * Obtain an EKG for pre-op evaluation * Cardiology consult for pre-op cardiology eval - we appreciate their assistance with pre-op cardiac evaluation * Follows outpatient with Dr Gomez w/ [facility] * High cardiac risk for surgery * Continue home daily ASA, statin, Entresto, Imdur, Coreg Qualifiers: Associated angina: without angina Coronary Disease-Associated Artery/Lesion type: [place] artery [place] vs. transplanted heart: [place] heart Qualified Code(s): I25.10 - Atherosclerotic heart disease of [place] coronary artery without angina pectoris (3) COPD (chronic obstructive pulmonary disease): Assessment and Plan: Chronic * Duoneb q4h PRN * Does not appear to be in exacerbation at this time (4) ROBYN (obstructive sleep apnea): Assessment and Plan: Chronic * Continue home CPAP w/ O2 bled in at 2L at noc (5) CHF (congestive heart failure): Assessment and Plan: Chronic * LVEF 75%, diastolic unable to evaluate d/t a-fib but clinically suspected * Continue home Entresto, spironolactone, and bumex * x 1 IVP bumex dose today per cardiology * Continue home 2L fluid restriction * Gentle IVF at 75/hr until able to take PO meds * Daily weights/strict I&O Qualifiers: Heart failure chronicity: chronic Heart failure type: diastolic Qualified Code(s): I50.32 - Chronic diastolic (congestive) heart failure (6) A-fib: Assessment and Plan: Chronic * Continue home Coreg for rate control * Continue to hold home Eliquis for surgery today * Last Eliquis dose on 11/09/23 AM dose Qualifiers: Atrial fibrillation type: paroxysmal Qualified Code(s): I48.0 - Paroxysmal atrial fibrillation (7) DM2 (diabetes mellitus, type 2): Assessment and Plan: Chronic * Continue home metformin * ACHS glucometer checks * Med CC diet * Med SSI glucose correction scale (8) DM neuropathy, type II diabetes mellitus: Assessment and Plan: Chronic * Continue home gabapentin
[2023-11-11] MEDS: MORPHINE SULFATE 2 MG/ML SYRINGE IV ×2 (13:17→18:55)
[2023-11-11] MEDS: LIDOCAINE HCL 1% 100 MG/10 ML MDV 19 ML INJ (15:27)
--- NOTE | 2023-11-11 15:56 | P.ORON_ITS ---
Brief Operative Note Date of procedure: 11/11/23 Pre-op diagnosis general: Left acute osteomyelitis of second toe with diabetic ulceration with bone necrosis, type 2 diabetes with foot ulcer and peripheral neuropathy Post-op diagnosis: same as pre-op Procedure: Procedure performed: Partial second toe amputation Indications for procedure: Patient is a 63-year-old male well-known to my practice who underwent previous great toe amputation. He was seen yesterday in the office and had localized redness and swelling to the distal aspect of the second toe with bone exposure at the distal tuft. Patient was relating to discomfort in this area but more concerning was having feverish and malaise type symptoms and was overall feeling unwell. He also admitted to nausea. He was sent to the the emergency department from the office and was admitted under the hospitalist care. He was started on broad-spectrum antibiotics. 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 I discussed the pros and cons of isolated second toe amputation versus TMA and given his systemic signs and symptoms I was concerned that he would not be able to tolerate a TMA at this time therefore recommended isolated second toe amputation with the known risk of repeat ulceration on the third fourth or fifth toes given his previous left hallux amputation. All questions were answered to the patient and his 's care and consent was obtained for the above procedure Intraoperative findings: Wound on the distal aspect of the left second toe measured 0.8 x 0.5 cm with exposed distal phalanx. There is localized swelling erythema and warmth isolated to the distal most aspect of the second toe. There is no purulence but bone quality of the distal and middle phalanx was soft and discoloration of the distal phalanx only was noted. Bone quality of the proximal phalanx was within normal limits given patient's age and gender. Procedure in detail: Patient was identified in preoperative holding by myself which time correct side and site were marked and consent was obtained. No additional antibiotics were given due to patient receiving scheduled antibiotics on the floor. No tourniquet was applied and patient was brought back to the operative theater placed on table in supine position left lower extremities prepped and draped in usual sterile fashion and formal timeout was performed. A fishmouth incision was placed on the 2nd toe, LEFT foot. Full-thickness incision was taken down to bone to the level of the proximal inner phalangeal joint and all soft tissue attachments were released allowing disarticulation of the digit. The amputated digit was passed back table and sent for specimen. Tendinous structures were cut proximally. Surgical site was irrigated with normal saline and inspected for any nonviable tissue which was removed. A clean rongeur was used to obtain a proximal bone culture from the head of the proximal phalanx which was sent to microbiology. Incision was then closed in one layer with nonabsorbable suture. Bulky dry sterile dressing was applied. Patient tolerated the procedure and anesthesia well was transported to the recovery room with vital signs stable and brisk capillary refill to the remaining toes. Postoperative plan: Patient may bear weight to the left heel as tolerated Transfer to medical surgical unit under the hospitalist care Continue broad-spectrum antibiotics Patient will likely be discharged on p.o. antibiotics but will need to be renally dosed Hopeful discharge either tomorrow or Thursday Will follow Anesthesia: MAC and local Surgeon: Bob Emery Estimated blood loss (mL): 10 Tourniquet time (min): 0 Pathology: other (2nd toe) Condition: stable Disposition: PACU
[2023-11-11 16:25] LABS: Glucometer 86 mg/dL (74-106)
[2023-11-11] MEDS: VANCOMYCIN HCL 1,500 MG in 0.9 % SODIUM CHLORIDE 500 ML 250 MG IV (16:27)
--- NOTE | 2023-11-11 16:34 | W.PM.WC ---
Wound Consult Note Assessment and Plan (1) Diabetic ulcer of toe: (2) CAD (coronary artery disease): Qualifiers: Coronary Disease-Associated Artery/Lesion type: [place] artery [place] vs. transplanted heart: [place] heart Associated angina: without angina Qualified Code(s): I25.10 - Atherosclerotic heart disease of [place] coronary artery without angina pectoris (3) COPD (chronic obstructive pulmonary disease): (4) ROBYN (obstructive sleep apnea): (5) CHF (congestive heart failure): Qualifiers: Heart failure type: diastolic Heart failure chronicity: chronic Qualified Code(s): I50.32 - Chronic diastolic (congestive) heart failure (6) A-fib: Qualifiers: Atrial fibrillation type: paroxysmal Qualified Code(s): I48.0 - Paroxysmal atrial fibrillation (7) DM2 (diabetes mellitus, type 2): (8) DM neuropathy, type II diabetes mellitus: Plan Patient is a pleasant 61-year-old male with PMH listed below who is admitted to [facility] following failure to thrive after recent discharge from [facility]. Upon presentation was noted to have ulcerations to the bilateral heel as well as the left plantar lateral forefoot. He is unsure when they started but states his previous nurse first noticed them maybe 10 days ago. He denies any very and denied any pain associated with the wounds. He denied any other acute lower extremity complaints at time of visit and denied any constitutional symptoms. DP and PT pulses strongly palpable. CFT intact to digits. Skin temperature is warm and symmetric without focal increase. No erythema edema or ecchymosis bilateral lower extremities. Light touch and gross sensation is diminished. Protective sensation is absent. Thickness ulcerations of bilateral posterior heel, left larger than right with fibrotic base probing to subcutaneous layer. No exposed tendon and negative probe to bone. No fluctuance crepitus or bogginess. Partial-thickness fissure to the plantar fifth metatarsal head region of the left foot, granular with mild surrounding hyperkeratosis. No signs of acute infection bilateral. No gross deformity. No palpatory tenderness elicited upon exam. Compartments are soft compressible, no pain calf or thigh compression.
[2023-11-11] MEDS: LACTATED RINGER'S SOLUTION 1,000 ML 75 ML IV (16:38)
[2023-11-11] MEDS: OXYCODONE HCL 5 MG TABLET PO (18:13)
[2023-11-11 21:05] LABS: Glucometer 115 mg/dL (74-106)
[2023-11-11] MEDS: ONDANSETRON PF 4 MG/2 ML VIAL IV (21:06)
[2023-11-11] MEDS: ATORVASTATIN CALCIUM 40 MG TABLET 80 MG PO (21:08)
[2023-11-11] MEDS: POTASSIUM CHLORIDE 10 MEQ ER TABLET 20 MEQ PO (21:08)
[2023-11-11] MEDS: SACUBITRIL/VALSARTAN 24 MG-26 MG TABLET 1 TAB PO (21:08)
[2023-11-11] MEDS: CLONAZEPAM 0.5 MG TABLET PO (21:09)
[2023-11-12] VITALS (8 sets, daily range): BP systolic 126–166; BP diastolic 76–95; PULSE 72–80; TEMP 36.5–36.7; O2SAT 96–99
[2023-11-12] MEDS: MORPHINE SULFATE 2 MG/ML SYRINGE IV (02:34)
[2023-11-12] MEDS: VANCOMYCIN HCL 1,500 MG in 0.9 % SODIUM CHLORIDE 500 ML 250 MG IV (04:13)
[2023-11-12 04:22] LABS: Basophils Percent Auto 0.7 % (0.2-2.0); Eosinophils Absolute Auto 0.2 10^3/uL (0.0-0.7); Eosinophils Percent Auto 3.4 % (0.9-7.0); Hematocrit 29.7 % (42.0-54.0); Hemoglobin 9.5 g/dL (14.0-18.0); Immature Granulocytes Abs Auto 0.01 10^3/uL (0.00-0.03); Immature Granulocytes Pct Auto 0.2 % (0.0-0.5); Lymphocytes Absolute Auto 1.6 10^3/uL (1.2-3.8); Lymphocytes Percent Auto 26.7 % (20.5-60.0); Mean Corpuscular Hemoglobin 26.7 pg (25.9-34.0); Mean Corpuscular Volume 83.4 fL (80.0-94.0); Mean Platelet Volume 11.4 fL (9.5-13.5); Monocytes Absolute Auto 0.5 10^3/uL (0.3-0.8); Monocytes Percent Auto 7.8 % (1.7-12.0); Neutrophils Absolute Auto 3.6 10^3/uL (1.4-6.5); Neutrophils Percent Auto 61.2 % (43.0-75.0); Platelet Count 224 10^3/uL (150-450); Red Blood Count 3.56 10^6/uL (4.70-6.10); Red Cell Distribution Width 15.3 % (11.0-15.0); White Blood Count 5.9 10^3/uL (4.0-11.0)
[2023-11-12 04:42] LABS: Alanine Aminotransferase 21 U/L (16-63); Albumin Globulin Ratio 0.7; Albumin Level 2.7 g/dL (3.4-5.0); Alkaline Phosphatase 75 U/L (46-116); Anion Gap 6.8; Aspartate Amino Transferase 16 U/L (15-37); BUN Creatinine Ratio 17.2; Bilirubin Total 0.5 mg/dL (0.2-1.0); Calcium 8.5 mg/dL (8.5-10.1); Carbon Dioxide 29.2 mmol/L (21.0-32.0); Chloride 107 mmol/L (98-107); Estimated GFR (African America >60 (>=60); Estimated GFR (Non-African Ame >60 (>=60); Globulin 3.8 g/dL; Glucose 106 mg/dL (74-106); Sodium 139 mmol/L (136-145); Total Protein 6.5 g/dL (6.4-8.2)
[2023-11-12 05:09] LABS: Vancomycin Trough 13.7 ug/mL (5.0-20.0)
[2023-11-12] MEDS: GABAPENTIN 400 MG CAPSULE 800 MG PO (05:41)
[2023-11-12] MEDS: MOXIFLOXACIN HCL 0.5% OP 60 DROP/3 ML BOTTLE OP (05:42)
[2023-11-12] MEDS: PIPERACILLIN SODIUM/TAZOBACTAM 3.375 GM in 0.9 % SODIUM CHLORIDE 50 ML IV (06:29)
[2023-11-12] MEDS: LACTATED RINGER'S SOLUTION 1,000 ML 75 ML IV (06:29)
[2023-11-12] MEDS: POTASSIUM CHLORIDE 10 MEQ ER TABLET 20 MEQ PO (09:56)
[2023-11-12] MEDS: ENOXAPARIN SODIUM 40 MG/0.4 ML SYRINGE SUBQ (09:56)
[2023-11-12] MEDS: SPIRONOLACTONE 25 MG TABLET 50 MG PO (09:56)
[2023-11-12] MEDS: ASPIRIN 81 MG TABLET.DR PO (09:56)
[2023-11-12] MEDS: ISOSORBIDE MONONITRATE 30 MG TAB.ER.24H 90 MG PO (09:56)
[2023-11-12] MEDS: CARVEDILOL 6.25 MG TABLET PO (09:56)
[2023-11-12] MEDS: SODIUM HYPOCHLORITE HALF STRENGTH (0.25%) 473 ML BOTTLE 30 ML TOPICAL (09:57)
[2023-11-12] MEDS: PREDNISOLONE ACETATE OP 1% SUSP 100 DROPS/5 ML 1 DROP OP (09:57)
[2023-11-12] MEDS: SACUBITRIL/VALSARTAN 24 MG-26 MG TABLET 1 TAB PO (09:57)
[2023-11-12] MEDS: BUMETANIDE 1 MG TABLET 3 MG PO (09:57)
--- NOTE | 2023-11-12 10:10 | P.DS_ITS ---
DS: Providers Provider Date of admission: 11/10/23 15:52 Primary care physician: Elin Liz MD Admitting clinician: Shaikh Taryn Attending physician on admission: Shaikh Taryn Consults: 11/10/23 14:47 Occupational Therapy Eval and Treat Routine Reason for consultation: Ambulatory dysfunction/weakness Physical Therapy Eval and Treat Routine Reason for consultation: Ambulatory dysfunction/weakness 11/10/23 14:48 Consult to Podiatry Routine Consulting Provider: Bob Emery Reason for consultation: Diabetic foot infection 11/10/23 16:04 Consult to Cardiology Routine Reason for consultation: Pre-op cardiac assessment Has provider been notified: No Attending physician on discharge: Shaikh Taryn Discharging clinician: Shaikh Taryn Anticipated date of discharge: 11/12/23 DS: Diagnosis Discharge Diagnosis (1) Diabetic ulcer of toe: Assessment and plan: Status post partial toe amputation. Podiatry will follow-up with him as outpatient. Stable for discharge on oral antibiotic Qualifiers: Diabetes mellitus type: type 2 Laterality: left Non-pressure ulcer stage: with necrosis of bone Qualified Code(s): E11.621 - Type 2 diabetes mellitus with foot ulcer; L97.524 - Non-pressure chronic ulcer of other part of left foot with necrosis of bone (2) CAD (coronary artery disease): Assessment and plan: No evidence of active cardiac ischemia. Continue with home medications Qualifiers: Coronary Disease-Associated Artery/Lesion type: [place] artery [place] vs. transplanted heart: [place] heart Associated angina: without angina Qual ified Code(s): I25.10 - Atherosclerotic heart disease of [place] coronary artery without angina pectoris (3) COPD (chronic obstructive pulmonary disease): Assessment and plan: No evidence of bronchospasm. No wheezing. Continue with home medications Qualifiers: COPD type: unspecified COPD Qualified Code(s): J44.9 - Chronic obstructive pulmonary disease, unspecified (4) ROBYN (obstructive sleep apnea): Assessment and plan: . Continue using CPAP (5) CHF (congestive heart failure): Assessment and plan: Euvolemic. Resume patient's oral medications. Qualifiers: Heart failure type: diastolic Heart failure chronicity: chronic Qualified Code(s): I50.32 - Chronic diastolic (congestive) heart failure (6) A-fib: Assessment and plan: Continue with home medications. In normal rhythm Qualifiers: Atrial fibrillation type: paroxysmal Qualified Code(s): I48.0 - Paroxysmal atrial fibrillation (7) DM2 (diabetes mellitus, type 2): Assessment and plan: Continue with home meds Qualifiers: Diabetes mellitus retirement insulin use: without retirement use Diabetes mellitus complication status: with neurologic complications Diabetes mellitus complication detail: with polyneuropathy Qualified Code(s): E11.42 - Type 2 diabetes mellitus with diabetic polyneuropathy (8) DM neuropathy, type II diabetes mellitus: Assessment and plan: Continue with home medications. 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 Patient was admitted for diabetic foot infection/ulcer and was evaluated by podiatry. He was treated with IV antibiotics. Patient was also seen by cardiology in the hospital for preoperative clearance. Patient underwent partial toe amputation. He is doing well postoperatively and has no active complaints to offer. Stable for discharge and will follow-up with podiatry as outpatient Status at Discharge Overall status at discharge: patient is back to baseline Time Spent with Patient Time attestation: Total time spent providing and/or coordinating discharge services: Time spent: greater than 30 minutes Exam Constitutional Vital Signs, click to edit/add: Last Vital Signs Temp 98.0 F 11/12/23 09:27 Pulse 75 11/12/23 10:00 Resp 18 11/12/23 09:27 BP 166/95 H 11/12/23 09:27 Pulse Ox 96 11/12/23 09:27 O2 Del Method Room Air 11/12/23 09:27 O2 Flow Rate 3 11/12/23 04:00 Documenting provider has reviewed patient's vital signs: yes Common normals: no apparent distress and oriented x3 General appearance: cooperative Respiratory Common normals: normal respiratory effort and clear to auscultation bilaterally Effort & inspection: able to speak in complete sentences Auscultation: clear to auscultation bilaterally Cardio Common normals: regular rate, S1 normal heart sound and S2 normal heart sound Rate: regular rate Heart sounds: S1 normal and S2 normal Extremity Other: right foot TMA Left foot - post op dressing in place Neuro Common normals: oriented x3, moves all extremities and no focal motor deficits Psych Common normals: mental status grossly normal, denies hallucinations, denies homicidal ideation and denies suicidal ideation DS: Data Data Completed and Pending Labs on day of discharge: Labs from last 24 hours 11/12/23 11/11/23 11/11/23 03:11 21:04 16:24 WBC 5.9 RBC 3.56 L Hgb 9.5 L Hct 29.7 L MCV 83.4 MCH 26.7 MCHC 32.0 RDW 15.3 H Plt Count 224 MPV 11.4 Neut % (Auto) 61.2 Lymph % (Auto) 26.7 Baxter % (Auto) 7.8 Eos % (Auto) 3.4 Baso % (Auto) 0.7 Neut # (Auto) 3.6 Lymph # (Auto) 1.6 Baxter # (Auto) 0.5 Eos # (Auto) 0.2 Baso # (Auto) 0.0 Abs Immat Gran (auto) 0.01 Imm/Tot Granulo (auto) 0.2 Sodium 139 Potassium 4.0 Chloride 107 Carbon Dioxide 29.2 Anion Gap 6.8 BUN 17.0 Creatinine 0.99 Est GFR ( Amer) >60 Est GFR (Non-Af Amer) >60 BUN/Creatinine Ratio 17.2 Glucose 106 Calcium 8.5 Total Bilirubin 0.5 AST 16 ALT 21 Alkaline Phosphatase 75 Total Protein 6.5 Albumin 2.7 L Globulin 3.8 Albumin/Globulin Ratio 0.7 Vancomycin Trough 13.7 POC Glucose 115 H 86 11/11/23 11:15 WBC RBC Hgb Hct MCV MCH MCHC RDW Plt Count MPV Neut % (Auto) Lymph % (Auto) Baxter % (Auto) Eos % (Auto) Baso % (Auto) Neut # (Auto) Lymph # (Auto) Baxter # (Auto) Eos # (Auto) Baso # (Auto) Abs Immat Gran (auto) Imm/Tot Granulo (auto) Sodium Potassium Chloride Carbon Dioxide Anion Gap BUN Creatinine Est GFR ( Amer) Est GFR (Non-Af Amer) BUN/Creatinine Ratio Glucose Calcium Total Bilirubin AST ALT Alkaline Phosphatase Total Protein Albumin Globulin Albumin/Globulin Ratio Vancomycin Trough POC Glucose 141 H Discharge Plan Discharge Disposition: Home, Self-Care Condition: Good Discharge Medications: New sulfamethoxazole-trimethoprim [Bactrim DS] 800-160 mg tablet 1 tab PO BID Qty: 20 0RF Continued atorvastatin 80 mg tablet 80 mg PO .QHS aspirin 81 mg tablet,delayed release (DR/EC) 81 mg PO .QD bumetanide 1 mg tablet 3 mg PO Q12H Eliquis 5 mg tablet 5 mg PO BID metformin 500 mg tablet 500 mg PO BIDWM isosorbide mononitrate 30 mg tablet extended release 24 hr 90 mg PO .QD clonazepam 1 mg tablet 0.5 mg PO .QHS potassium chloride 20 mEq tablet,ER particles/crystals 20 meq PO BID gabapentin 800 mg tablet 800 mg PO Q8H nitroglycerin 0.4 mg tablet, sublingual 0.4 mg sublingual Q5M PRN (Reason: chest pain) oxycodone 5 mg tablet 5 mg PO Q8H PRN (Reason: pain) moxifloxacin 0.5 % drops 1 drp ophthalmic (eye) QID Xtampza ER 18 mg cap,sprinkl,ER12hr(DONT CRUSH) 18 mg PO Q12H prednisolone acetate 1 % drops,suspension 1 drp ophthalmic (eye) Q12H Patient Comments: BOTH EYES spironolactone 50 mg tablet 50 mg PO .QD (DME) pen needle, diabetic [Unifine Pentips] 32 gauge x 5/32 needle MISCELLANEOUS Entresto 24-26 mg tablet 1 tab PO BID carvedilol [Coreg] 6.25 mg tablet 6.25 mg PO BID Rx Instructions: must administer with a meal/food diclofenac sodium 1 % gel 2 g TOPICAL Q4H PRN (Reason: to each affected area) Patient Comments: APPLY 2-4 GRAMS TOPICALLY TO EACH EFFECTED AREA EVERY 4-6 HOURS. MAX OF 32 GRAMS DAILY Discontinued amoxicillin-pot clavulanate 875-125 mg tablet 1 tab PO BID Activity: increase activity as tolerated Diet: advance to your usual diet Print Language: [place] Forms: Portal Instructions Follow Up Appointments: please schedule follow up with dr elin liz for within 5-7 days [phone]. [address] [facility]
--- NOTE | 2023-11-13 14:38 | CM.DCFOLLOWU ---
1st attempt 11/13/23
--- NOTE | 2023-11-16 14:07 | CM.DCFOLLOWU ---
2nd attempt 11/16/23
--- NOTE | 2023-11-17 13:25 | CM.DCFOLLOWU ---
3rd attempt 11/17/23
== END 2023-11-12 11:26 | disposition home or self-care (01) | DRG 617 ==
LOC: ER 14:57 → MS 15:56
PROVIDERS: Nurse Practitioner; Physician Assistant; Podiatrist Foot & Ankle Surgery; Admitting Provider Internal Medicine; Emergency Provider Emergency Medicine; PCP Family Medicine; Visit Provider Internal Medicine
PROC: 0Y6S0Z1 Detachment at Left 2nd Toe, High, Open Approach (ICD-10-PCS; principal; 2023-11-11 15:00)
DX: E11.621 Type 2 diabetes mellitus with foot ulcer (principal); I50.32 Chronic diastolic (congestive) heart failure; M86.172 Other acute osteomyelitis, left ankle and foot; L97.418 Non-pressure chronic ulcer of right heel and midfoot with other specified severity; I25.10 Atherosclerotic heart disease of native coronary artery without angina pectoris; J44.9 Chronic obstructive pulmonary disease, unspecified; L97.524 Non-pressure chronic ulcer of other part of left foot with necrosis of bone; I48.0 Paroxysmal atrial fibrillation; G47.33 Obstructive sleep apnea (adult) (pediatric); E78.5 Hyperlipidemia, unspecified; I25.2 Old myocardial infarction; Z79.82 Long term (current) use of aspirin; E11.42 Type 2 diabetes mellitus with diabetic polyneuropathy; Z79.899 Other long term (current) drug therapy; Z79.01 Long term (current) use of anticoagulants; Z79.84 Long term (current) use of oral hypoglycemic drugs; Z87.891 Personal history of nicotine dependence; Z79.85 Long-term (current) use of injectable non-insulin antidiabetic drugs; Z89.412 Acquired absence of left great toe; Z89.431 Acquired absence of right foot; Z98.84 Bariatric surgery status; E11.40 Type 2 diabetes mellitus with diabetic neuropathy, unspecified; L97.522 Non-pressure chronic ulcer of other part of left foot with fat layer exposed; M79.672 Pain in left foot
CPT/HCPCS: 11043; 36415; 36569; 73630; 80053; 80202; 82800; 82948; 83036; 83605; 83880; 84145; 85025; 85610; 86140; 87040; 87070; 87102; 87116; 87205; 87206; 88305; 93005; 94761; 96361; 96365; 96366; 96367; 96372; 96375; 96376; 99285; 99999; C1887; G0463; J1170; J1650; J2250; J2270; J2405; J2543; J3370

== ENCOUNTER 2023-11-23 15:15 | Outpatient (OUT) | payer MEDICARE, MEDICAID, SELFPAY | END 2023-11-23 15:16 | disposition home or self-care (01) | LOC: WC 15:17 | PROVIDERS: PCP Family Medicine; Visit Provider Physician Assistant | DX: E11.621 Type 2 diabetes mellitus with foot ulcer (principal); L97.418 Non-pressure chronic ulcer of right heel and midfoot with other specified severity; L97.522 Non-pressure chronic ulcer of other part of left foot with fat layer exposed | CPT/HCPCS: 11043 ==

== ENCOUNTER 2023-12-08 15:24 | Outpatient (OUT) | payer MEDICARE, MEDICAID, SELFPAY | END 2023-12-08 15:25 | disposition home or self-care (01) | LOC: WC 15:24 | PROVIDERS: PCP Family Medicine; Visit Provider Physician Assistant | DX: E11.621 Type 2 diabetes mellitus with foot ulcer (principal); L97.418 Non-pressure chronic ulcer of right heel and midfoot with other specified severity; L89.622 Pressure ulcer of left heel, stage 2 | CPT/HCPCS: A6213; G0463 ==

== ENCOUNTER 2024-01-01 11:35 | Outpatient (OUT) | payer MEDICARE, MEDICAID, SELFPAY | END 2024-01-01 11:36 | disposition home or self-care (01) | LOC: WC 11:35 | PROVIDERS: PCP Family Medicine; Visit Provider Physician Assistant | DX: E11.621 Type 2 diabetes mellitus with foot ulcer (principal); L97.418 Non-pressure chronic ulcer of right heel and midfoot with other specified severity; L89.622 Pressure ulcer of left heel, stage 2 | CPT/HCPCS: G0463 ==

== ENCOUNTER 2024-01-07 15:01 | Outpatient (OUT) | payer MEDICARE, MEDICAID, SELFPAY | END 2024-01-07 15:02 | disposition home or self-care (01) | LOC: WC 15:01 | PROVIDERS: PCP Family Medicine; Visit Provider Physician Assistant | DX: L84 Corns and callosities (principal); E11.40 Type 2 diabetes mellitus with diabetic neuropathy, unspecified | CPT/HCPCS: A6213; G0463 ==

== ENCOUNTER 2024-01-19 12:45 | Outpatient (OUT) | payer MEDICARE, MEDICAID, SELFPAY ==
[2024-01-20 06:09] LABS: HBsAg Screen Negative (Negative); Hep B Core Ab, IgM Negative (Negative)
[2024-01-21 05:10] LABS: Anti-MPO Antibodies <0.2 units (0.0-0.9); Anti-PR3 Antibodies <0.2 units (0.0-0.9); Cytoplasmic (C-ANCA) <1:20 titer (Neg:<1:20); Perinuclear (P-ANCA) <1:20 titer (Neg:<1:20)
== END 2024-01-19 12:46 | disposition home or self-care (01) ==
LOC: LAB 12:51
PROVIDERS: PCP Family Medicine; Visit Provider Internal Medicine Rheumatology
DX: H16.003 Unspecified corneal ulcer, bilateral (principal); Z11.59 Encounter for screening for other viral diseases
CPT/HCPCS: 36415; 83516; 86037; 86707; 87340; 87350

== ENCOUNTER 2024-03-02 15:41 | Outpatient (OUT) | payer MEDICARE, MEDICAID, SELFPAY | END 2024-03-02 15:42 | disposition home or self-care (01) | LOC: WC 15:41 | PROVIDERS: PCP Family Medicine; Visit Provider Physician Assistant | DX: E11.621 Type 2 diabetes mellitus with foot ulcer (principal); L97.412 Non-pressure chronic ulcer of right heel and midfoot with fat layer exposed | CPT/HCPCS: 11043 ==

== ENCOUNTER 2024-03-16 13:58 | Outpatient (OUT) | payer MEDICARE, MEDICAID, SELFPAY | END 2024-03-16 13:59 | disposition home or self-care (01) | LOC: WC 13:58 | PROVIDERS: PCP Family Medicine; Visit Provider Physician Assistant | DX: E11.621 Type 2 diabetes mellitus with foot ulcer (principal); L97.412 Non-pressure chronic ulcer of right heel and midfoot with fat layer exposed; L84 Corns and callosities; E11.40 Type 2 diabetes mellitus with diabetic neuropathy, unspecified; L97.521 Non-pressure chronic ulcer of other part of left foot limited to breakdown of skin | CPT/HCPCS: 11043 ==

== ENCOUNTER 2024-05-06 07:35 | Outpatient (RCR) | payer MEDICARE, MEDICAID, SELFPAY ==
[2024-04-28] MEDS: BUMETANIDE 1 MG/4 ML VIAL 3 MG IVP (13:41)
[2024-04-28 13:59] VITALS: BP 146/78; PULSE 18; TEMP 36.1; O2SAT 96
--- NOTE | 2024-04-28 14:02 | PC.NURSE ---
1330 iv bumex as ordered, patient tolerated well. 1400 Tolerated IV bumex without any adverse affects. IV site rt wrist secured with coban. Released ambulatory
[2024-05-02 10:51] VITALS: BP 139/76; PULSE 81; TEMP 36.3; O2SAT 97
[2024-05-02] MEDS: BUMETANIDE 1 MG/4 ML VIAL 3 MG IVP (11:19)
[2024-05-02 11:37] VITALS: BP 127/74; PULSE 81; TEMP 36; O2SAT 95
[2024-05-02 11:43] VITALS: BP 109/70; PULSE 80; O2SAT 96
[2024-05-05 14:09] VITALS: BP 129/78; PULSE 78; TEMP 36.2; O2SAT 96
[2024-05-05 14:24] VITALS: BP 129/77
[2024-05-05] MEDS: BUMETANIDE 1 MG/4 ML VIAL 3 MG IVP (14:24)
[2024-05-05 14:47] VITALS: BP 122/75
[2024-05-06 12:26] VITALS: BP 126/66; PULSE 50; TEMP 36.4
[2024-05-06] MEDS: BUMETANIDE 1 MG/4 ML VIAL 3 MG IVP (12:46)
[2024-05-06 13:04] VITALS: BP 102/61; PULSE 85
== END 2024-05-06 13:30 | disposition home or self-care (01) ==
LOC: INF 07:35
PROVIDERS: PCP Internal Medicine Interventional Cardiology; Visit Provider Internal Medicine Interventional Cardiology
DX: I50.43 Acute on chronic combined systolic (congestive) and diastolic (congestive) heart failure (principal); M79.671 Pain in right foot; E11.621 Type 2 diabetes mellitus with foot ulcer; L97.412 Non-pressure chronic ulcer of right heel and midfoot with fat layer exposed; L97.521 Non-pressure chronic ulcer of other part of left foot limited to breakdown of skin
CPT/HCPCS: 11043; 73630; 96374

== ENCOUNTER 2024-05-06 09:49 | Outpatient (OUT) | payer MEDICARE, MEDICAID, SELFPAY ==
--- NOTE | 2024-05-06 | XR_ITS ---
The [address] [address] Patient Name: MATT HOWARD MRN: [id number] date: 1960 Sex: M Assigned Patient Location: Current Patient Location: Accession/Order Number: [id number] Exam Date: 05/06/2024 09:55 Report Date: 05/09/2024 07:48 At the request of: MIRIAN BRYAN Procedure: XR foot RT min 3V PROCEDURE: XR foot RT min 3V COMPARISON: None. HISTORY: RIGHT FOOT PAIN FINDINGS: BONES:Indication along the base of the metatarsals. Moderate to severe degenerative changes of the foot and hindfoot with enthesopathic calcaneus SOFT TISSUES:Subcutaneous emphysema EFFUSION:None visible. OTHER: Negative. XR/XR foot RT min 3V IMPRESSION: Subcutaneous emphysema, consider infection with a gas-forming organism No plain film evidence of osteomyelitis Electronically authenticated by: ZARINA CHUNG Date: 05/09/2024 07:48
== END 2024-05-06 09:50 | disposition home or self-care (01) ==
LOC: WC 09:49
PROVIDERS: PCP Internal Medicine Interventional Cardiology; Visit Provider Physician Assistant
DX: M79.671 Pain in right foot (principal); E11.621 Type 2 diabetes mellitus with foot ulcer; L97.412 Non-pressure chronic ulcer of right heel and midfoot with fat layer exposed; L97.521 Non-pressure chronic ulcer of other part of left foot limited to breakdown of skin
CPT/HCPCS: 11043; 73630

== ENCOUNTER 2024-05-24 11:00 | Outpatient (OUT) | payer MEDICARE, MEDICAID, SELFPAY ==
--- NOTE | 2024-05-24 11:03 | XR_ITS ---
The [address] [address] Patient Name: MATT HOWARD MRN: [id number] date: 1960 Sex: M Assigned Patient Location: [facility] Current Patient Location: Accession/Order Number: [id number] Exam Date: 05/24/2024 12:10 Report Date: 05/25/2024 04:58 At the request of: KOLE DIAZ Procedure: XR chest 2V EXAMINATION: XR chest 2V HISTORY: Preop exam COMPARISON: No relevant comparison available. FINDINGS: LUNGS: Mild opacity within lateral left lung base; prominent pericardial fat pad versus infiltrates. Right lung is clear. VASCULATURE: No increased pulmonary vasculature. PLEURA: No pneumothorax, effusion, or pleural thickening. CARDIAC: No cardiomegaly or cardiac silhouette abnormality. MEDIASTINUM: No visible mass or adenopathy. BONES: No fracture or visible bone lesion. OTHER: Negative. XR/XR chest 2V IMPRESSION: 1. Mild left lung base opacities suspected to represent a prominent pericardial pad. Mild lingular infiltrates are not completely excluded. Electronically authenticated by: KARIN RDZ Date: 05/25/2024 04:58
[2024-05-24 12:02] LABS: Basophils Absolute Auto 0.1 10^3/uL (0.0-0.1); Basophils Percent Auto 0.8 % (0.2-2.0); Eosinophils Absolute Auto 0.1 10^3/uL (0.0-0.7); Hematocrit 35.5 % (42.0-54.0); Hemoglobin 11.4 g/dL (14.0-18.0); Immature Granulocytes Abs Auto 0.02 10^3/uL (0.00-0.03); Immature Granulocytes Pct Auto 0.3 % (0.0-0.5); Lymphocytes Absolute Auto 1.5 10^3/uL (1.2-3.8); Lymphocytes Percent Auto 24.2 % (20.5-60.0); Mean Corpuscular HGB Conc 32.1 g/dL (29.9-35.2); Mean Corpuscular Hemoglobin 29.5 pg (25.9-34.0); Mean Platelet Volume 10.4 fL (9.5-13.5); Monocytes Absolute Auto 0.7 10^3/uL (0.3-0.8); Monocytes Percent Auto 11.1 % (1.7-12.0); Neutrophils Absolute Auto 3.9 10^3/uL (1.4-6.5); Neutrophils Percent Auto 61.6 % (43.0-75.0); Platelet Count 287 10^3/uL (150-450); Red Blood Count 3.86 10^6/uL (4.70-6.10); Red Cell Distribution Width 15.5 % (11.0-15.0); White Blood Count 6.4 10^3/uL (4.0-11.0)
[2024-05-24 12:08] LABS: BUN Creatinine Ratio 26.1; Calcium 9.5 mg/dL (8.5-10.1); Carbon Dioxide 31.2 mmol/L (21.0-32.0); Chloride 102 mmol/L (98-107); Estimated GFR (African America >60 (>=60 mL/min/1.73m^2); Estimated GFR (Non-African Ame >60 (>=60 mL/min/1.73m^2); Glucose 130 mg/dL (74-106); Potassium 4.2 mmol/L (3.5-5.1); Sodium 138 mmol/L (136-145)
[2024-05-24 12:32] LABS: INR 1.03; Partial Thromboplastin Time 28.9 sec (22.3-36.2); Prothrombin Time 10.9 sec (9.0-11.6)
== END 2024-05-24 11:01 | disposition home or self-care (01) ==
LOC: PST 11:02
PROVIDERS: PCP Family Medicine; Visit Provider Podiatrist Foot & Ankle Surgery
DX: Z01.810 Encounter for preprocedural cardiovascular examination (principal); Z01.812 Encounter for preprocedural laboratory examination; E11.621 Type 2 diabetes mellitus with foot ulcer; L97.412 Non-pressure chronic ulcer of right heel and midfoot with fat layer exposed
CPT/HCPCS: 71046; 80048; 85025; 85610; 85730

== ENCOUNTER 2024-05-27 07:06 | Day surgery (SDC) | payer MEDICARE, MEDICAID, SELFPAY ==
[2024-05-24 11:52] VITALS: BP 139/89; PULSE 79; TEMP 36.3; O2SAT 97; BMI 38.1
--- OUTSIDE RECORDS SUMMARY | 2024-05-27 07:13 | XMS_ITS | CCD ---
Author Organization [facility] Care Team Providers Care Shift Superintendent Name Role Phone SURAJ LLANOS Primary Care Physician Jenifer Resendizn Unavailable Unavailable Debora, Kwabena Unavailable Jeb Hernandez Unavailable [phone] SURAJ LLANOS Primary Care Unavailable SURAJ LLANOS Referring Unavailable DELMA EDDY Attending Unavailable DELMA EDDY Admitting Unavailable ROSEMARY BARRON Attending Unavailable SURAJ LLANOS Primary Care Unavailable EL-ZAWAY AHMED Referring Unavailable EL-ZAWAHRY AHMED Admitting Unavailable LARRY, YANICK Admitting Unavailable LARRY, YANICK Attending Unavailable JANET GOMEZ Referring Unavailable SURAJ LLANOS Primary Care Unavailable MD Suraj Llanos Primary Care Provider Janet Gomez Attending Provider DR SURAJ LLANOS Primary Care Unavailable ELTAHAWY, DR JASON Attending Unavailable ELTAHAWY, DR JASON Admitting Unavailable ELTAHAWY, DR JASON Consulting Unavailable LLANOS, DR SURAJ Crowley Primary Care Unavailable ELTAHAWY, DR JASON Attending Unavailable ELTAHAWY, DR JASON Admitting Unavailable ELTAHAWY, DR JASON Consulting Unavailable LLANOS, DR SURAJ Crowley Primary Care Unavailable ELTAHAWY, DR JASON Attending Unavailable ELTAHAWY, DR JASON Admitting Unavailable ZARINA CHOWDHURY Consulting Unavailable REQUEST, DR HAMPTON LISTED Primary Care Unavaila ble ELTAHAWY, DR JASON Attending Unavailable ELTAHAWY, DR JASON Admitting Unavailable MISC, DR CAROLINA Attending Unavailable MISC, DR CAROLINA Admitting Unavailable DR SURAJ LLANOS Primary Care Unavailable KOLE DIAZ Attending Unavailable KOLE DIAZ Admitting Unavailable NATHAN DORMAN Consulting Unavailable LLANOS, DR SURAJ Crowley Primary Care Unavailable DANDY, NATHAN Attending Unavailable DANDY, NATHAN Admitting Unavailable REQUEST, DR HAMPTON LISTED Primary Care Unavaila ble DANDY, NATHAN Attending Unavailable DANDY, NATHAN Admitting Unavailable ELTAHAWY, DR JASON Consulting Unavailable LLANOS, DR SURAJ Crowley Primary Care Unavailable ELTAHAWY, DR JASON Attending Unavailable ELTAHAWY, DR JASON Admitting Unavailable DANDY, NATHAN Consulting Unavailable LLANOS, DR SURAJ Crowley Primary Care Unavailable DANDY, NATHAN Attending Unavailable DANDY, NATHAN Admitting Unavailable LLANOS, DR SURAJ Crowley Consulting Unavailable LLANOS, DR SURAJ Crowley Primary Care Unavailable LLANOS, DR SURAJ Crowley Attending Unavailable LLANOS, DR SURAJ Crowley Admitting Unavailable LLANOS, DR SURAJ Crowley Primary Care Unavailable HIGHLANDER, KOLE Silva Attending Unavailable HIGHLANDER, PETER D Admitting Unavailable WEST, DR ZARINA Robles Consulting Unavailable LLANOS, DR SURAJ Crowley Primary Care Unavailable HIGHLANDER, KOLE Silva Attending Unavailable HIGHLANDER, PETER D Admitting Unavailable HIGHLANDER, KOLE Silva Consulting Unavailable Zieber, DR James Consulting Unavailable LLANOS, DR SURAJ Crowley Primary Care Unavailable HIGHLANDER, KOLE Silva Attending Unavailable HIGHLANDER, PETER D Admitting Unavailable HIGHLANDER, KOLE Silva Consulting Unavailable LLANOS, DR SURAJ Crowley Primary Care Unavailable MISC, DR CAROLINA Attending Unavailable MISC, DR CAROLINA Admitting Unavailable DANDY, NATHAN Consulting Unavailable LLANOS, DR SURAJ Crowley Primary Care Unavailable DANDY, NATHAN Attending Unavailable DANDY, NATHAN Admitting Unavailable ELTAHAWY, DR JASON Consulting Unavailable LLANOS, DR SURAJ Crowlye Primary Care Unavailable ELTAHAWY, DR JASON Attending Unavailable ELTAHAWY, DR JASON Admitting Unavailable MARIE, ASHWIN Consulting Unavailable LLANOS, DR SURAJ Crowley Primary Care Unavailable MARIE, ASHWIN Attending Unavailable MARIE, ASHWIN Admitting Unavailable LLANOS, DR SURAJ Crowley Primary Care Unavailable HIGHLANDER, KOLE D Attending Unavailable HIGHLANDER, PETER D Admitting Unavailable LLANOS, DR SURAJ Crowley Primary Care Unavailable HIGHLANDER, PETER D Attending Unavailable HIGHLANDER, PETER D Admitting Unavailable ELTAHAWY, DR JASON Consulting Unavailable REQUEST, DR HAMPTON LISTED Primary Care Unavaila ble ELTAHAWY, DR JASON Attending Unavailable ELTAHAWY, DR JASON Admitting Unavailable Patti Baker Unavailable Unavailable MD Suraj Llanos Primary Care Provider [phone] MD Suraj Llanos Attending Provider Dolce, DPM Ramiro Shira Attending Provider [phone] Dolce, DPM Santos R Attending Provider MD Suraj Llanos Primary Care Provider [phone] Suraj Llanos Unavailable MD Ronaldo Arcos Attending Provider Ronaldo Arcos Unavailable MD Suraj Llanos Primary Care Provider Dolce, DPM Ramiro Silva Attending Provider [phone] Dolce, DPM Santos R Attending Provider MD Ronaldo Arcos Attending Provider NON STAFF Primary Care Provider UnavailMD Suraj Davis Attending Provider MD Suraj Llanos Primary Care Provider Janet Gomez Attending Provider [phone] Dolce, Santos R Attending Unavailable Dolce, Santos R Attending Unavailable Dolce, Santos R Attending Unavailable Dolce, Santos R Consulting Unavailable Fareed, Demimad Admitting Unavailable Kennedy HARRIS Attending Unavailable Dolce, Santos R Consulting Unavailable Dolce, DPM Santos R Consulting Unavailable Dolce, Santos R Consulting Unavailable Dolce, Santos R Consulting Unavailable Dolce, Santos R Consulting Unavailable Dolce, Santos R Consulting Unavailable Dolce, Santos R Consulting Unavailable Dolce, Santos R Consulting Unavailable Dolce, Santos R Consulting Unavailable Blank, Ronaldo S Consulting Unavailable Blank, Ronaldo S Consulting Unavailable Blank, Ronaldo S Consulting Unavailable Blank, Ronaldo S Consulting Unavailable Blank, Ronaldo S Consulting Unavailable Blank, Ronaldo S Consulting Unavailable Blank, Ronaldo S Consulting Unavailable Blank, Ronaldo S Consulting Unavailable Blank, Ronaldo S Consulting Unavailable Blank, Ronaldo S Consulting Unavailable Art, Birgit F. Consulting Unavailable Art, Birgit F. Consulting Unavailable Art, Birgit F. Consulting Unavailable Javon Edwards Attending Unavailable Octavio Walter Admitting Unavailable Dolemily, Ramiro Silva Consulting Unavailable Dolce, Ramiro Silva Consulting Unavailable Dolce, Ramiro Silva Consulting Unavailable Dolce, Ramiro Silva Consulting Unavailable Dolce, Ramiro Silva Consulting Unavailable Dolce, Ramiro Silva Consulting Unavailable Dolce, Ramiro Silva Consulting Unavailable Dolce, Ramiro Silva Consulting Unavailable Dolce, Ramiro Silva Consulting Unavailable Dolce, Ramiro Silva Consulting Unavailable Dolce, Ramiro Silva Consulting Unavailable Blank, Ronaldo S Consulting Unavailable Blank, Ronaldo S Consulting Unavailable Blank, Ronaldo S Consulting Unavailable Blank, Ronaldo S Consulting Unavailable Blank, Ronaldo S Consulting Unavailable Blank, Ronaldo S Consulting Unavailable Blank, Ronaldo S Consulting Unavailable Blank, Ronaldo S Consulting Unavailable Blank, Ronaldo S Consulting Unavailable Blank, Ronaldo S Consulting Unavailable ALAHMKATHIA, Alaruben Admitting Unavailable Hospitalist Post Disch, Results Reviewer Consult ing Unavailable Kennedy HARRIS Attending Unavailable Blank, Ronaldo S Consulting Unavailable Blank, Ronaldo S Consulting Unavailable Blank, Ronaldo S Consulting Unavailable Blank, Ronaldo S Consulting Unavailable Blank, Ronaldo S Consulting Unavailable Blank, Ronaldo S Consulting Unavailable Blank, Ronaldo S Consulting Unavailable Blank, Ronaldo S Consulting Unavailable Blank, Ronaldo S Consulting Unavailable Blank, Ronaldo S Consulting Unavailable Javon Edwards Attending Unavailable Mimi COLIN Admitting Unavailable Blank, Ronaldo S Consulting Unavailable Blank, Ronaldo S Consulting Unavailable Blank, Ronaldo S Consulting Unavailable Blank, Ronaldo S Consulting Unavailable Blank, Ronaldo S Consulting Unavailable Blank, Ronaldo S Consulting Unavailable Blank, Ronaldo S Consulting Unavailable Blank, Ronaldo S Consulting Unavailable Blank, Ronaldo S Consulting Unavailable Blank, Ronaldo S Consulting Unavailable Dolce, Santos R Attending Unavailable Dolce, Santos R Attending Unavailable Dolce, Santos R Attending Unavailable Dolce, Santos R Attending Unavailable Dolce, Santos R Attending Unavailable Dolce, Ramiro Silva Referring Unavailable Dolce, Ramiro Silva Attending Unavailable Teddy HDZ Attending Unavailable Dolce, Santos R Attending Unavailable Dolce, Santos R Attending Unavailable Dolce, Santos R Attending Unavailable LLANOS, SURAJ Attending Unavailable LLANOSSURAJ Admitting Unavailable Dolce, Santos R Admitting Unavailable Dolce, Santos R Attending Unavailable Dolce, Santos R Attending Unavailable Dolce, Santos R Attending Unavailable Dolce, Santos R Attending Unavailable Dolce, Santos R Attending Unavailable Dolce, Santos R Attending Unavailable Mirian, Mark Attending Unavailable Mirian, Mark Attending Unavailable Derrick Benson Attending Unavailable Mark Zepeda Attending Unavailable Mark Zepeda Attending Unavailable Dolce, Santos R Attending Unavailable Dolce, Santos R Attending Unavailable MD Suraj Llanos Primary Care Provider Eltahawy, Ehab A Attending Provider MD Suraj Llanos Primary Care Provider HAMZAH Diaz Attending Provider MD Rudy Barr Attending Provider MD Suraj Llanos Primary Care Provider Clarissa GILBERT, sheri F Primary Care Provider Suraj Llanos MD Primary Care Provider Suraj Llanos Primary Care Unavailable Abugharbyeh, Aya Admitting Unavailable Abugharbyeh, Aya Attending Unavailable NON STAFF Primary Care Unavailable Suraj Llanos Admitting Unavailable Suraj Llanos Attending Unavailable Suraj Llanos Primary Care Unavailable Eltahawy, Ehab A Admitting Unavailable Eltahawy, Ehab A Attending Unavailable Suraj Llanos Primary Care Unavailable Kole Diaz Admitting Unavailable Kole Diaz Attending Unavailable Abugharbyeh, Aya Attending Unavailable Suraj Llanos Primary Care Unavailable Abugharbyeh, Aya Admitting Unavailable HOMAR GOODRICH Attending Unavailable KOLE DIAZ Referring Unavailable TABBY, HOMAR Munoz Attending Unavailable HOMAR GOODRICH Attending Unavailable BRAULIO CALABRESE Attending Unavailab le CHAABAN, NOURHAN Referring Unavailable LARRY, YANICK Admitting Unavailable ELTAHAWY, EHAB Referring Unavailable BRAULIO CALABRESE Attending Unavailab le PARTH, SARMED Admitting Unavailable PERNE, LYNETTE Attending Unavailable PERNE, LYNETTE Attending Unavailable ELTAHAWY, EHAB Attending Unavailable ELTAHAWY, EHAB Attending Unavailable ELTAHAWY, EHAB Attending Unavailable LUZ CORREA Referring Unavailable ABUGHARBYEH, AYA Attending Unavailable ABUGHARBYEH, AYA Referring Unavailable ABUGHARBYEH, AYA Referring Unavailable ABUGHARBYEH, AYA Referring Unavailable ESTELLA CHU Attending Unavailab le ABUGHARBYEH, AYA Attending Unavailable ELTAHAWY, EHAB Attending Unavailable ELTAHAWY, EHAB Attending Unavailable PERNE, LYNETTE Referring Unavailable YEARTY, EMORY Referring Unavailable DANDY, NATHAN Attending Unavailable CHINO, TONY Referring Unavailable ELTAHAWY, EHAB Attending Unavailable PARTH, SARMED Referring Unavailable PERNE, LYNETTE Referring Unavailable PARTH, SARMED Referring Unavailable PERNE, LYNETTE Attending Unavailable JOSESITO KATZ Referring Unavailable BEACHUM, GABBY Referring Unavailable PERNE, LYNETTE Attending Unavailable ELTAHAWY, EHAB Attending Unavailable ELTAHAWY, EHAB Attending Unavailable KASER, MARGARITA Attending Unavailable ABUGHARBYEH, AYA Attending Unavailable SANARCHANALLDEMI, LUZ Referring Unavailable PARTH, SARMED Referring Unavailable CHINO, TONY Referring Unavailable PARTH, SARMED Referring Unavailable PERNE, LYNETTE Referring Unavailable Suraj Llanos MD Primary Care Provider Unavailable Unavailable Unavailable Allergies Allergy Classification Reported Allergen(s) Allergy Type Date of Onset Reaction(s) Facility (20 sources) Metoclopramide; Translations: [Metoclopramide] Drug Allergy 09-16-19 17 Spasmodic movement (finding), Other, Rash, Unknown [facility] (20 sources) Polyethylene Glycols; Translations: [polyethylene glycol] Drug Allergy 06-22-19 [facility] (20 sources) Polyethylene Glycols; Translations: [polyethylene glycol 3350] Drug Allergy 06-22-19 [facility] (20 sources) Potassium Chloride; Translations: [potassium chloride] Drug Allergy 06-22-19 [facility] (20 sources) Promethazine; Translations: [Promethazine] Drug Allergy 05-10-20 13 Other, Rash, Unknown, Wheezing [facility] (20 sources) Sodium Bicarbonate; Translations: [sodium bicarbonate] Drug Allergy 06-22-19 [facility] (20 sources) Sodium Chloride; Translations: [sodium chloride] Drug Allergy 06-22-19 [facility] (20 sources) sodium sulfate; Translations: [sodium sulfate] Drug Allergy 06-22-19 [facility] (20 sources) Sulfonamides (Antibiotic); Translations: [Sulfa (Sulfonamide Antibiotics)] Allergy to substance 08-08-19 12 Wheezing [facility] (20 sources) sodium; Translations: [sodium] Allergy to substance 06-22-19 20 Rash [facility] (20 sources) POLYETHYLENE GLYCOL 3350 / Potassium Chloride / Sodium Bicarbonate / Sodium Chloride; Translations: [polyethylene glycol electrolyte solution] Drug Allergy rash [facility] (20 sources) Sulfonamides (Antibiotic); Translations: [sulfa drugs] Drug allergy rash [facility] (20 sources) POLYETHYLENE GLYCOL 3350 / Potassium Chloride / Sodium Bicarbonate / Sodium Chloride / sodium sulfate Drug Allergy 12-19-19 16 Rash, Unknown [facility] Other (20 sources) Sulfonamides (Antibiotic) Propensity to adverse reactions Unknown [facility] EUDOW[facility] Other (20 sources) phenegran Propensity to adverse reactions rash [facility]UD[facility] Other (19 sources) Iothalamate; Translations: [Reglan] Drug Allergy 02-28-20 15 Comment:twitch ing [facility] (4 sources) Levamisole; Translations: [Phenergan] Drug Allergy 08-27-19 12 [facility] (3 sources) POLYETHYLENE GLYCOL 3350 / Potassium Chloride / Sodium Bicarbonate / Sodium Chloride / sodium sulfate Drug Allergy 06-04-19 16 [facility] (10 sources) Codeine; Translations: [CODEINE] Drug Allergy 08-13-19 24 Hives [facility] (2 sources) Sulfonamides (Antibiotic) Drug allergy (disorder) 09-16-19 13 [facility] (15 sources) Codeine Drug Allergy Unknown [facility] Other (20 sources) hydrALAZINE; Translations: [HYDRALAZINE] Drug Allergy 08-13-19 24 [facility] Substance with sulfonamide structure and antibacterial mechanism of action (substance) Drug allergy 05-10-20 13 Other, Rash, Unknown, Wheezing [facility] EUDOW[facility] Other (10 sources) Sulfamethoxazole / Trimethoprim; Translations: [SULFAMETHOXAZOLE-T RIMETHOPRIM] Drug Allergy 12-19-19 16 [facility] (1 source) Codeine Drug Allergy 03-04-20 24 [facility] (1 source) hydrALAZINE Drug Allergy 03-04-20 [facility] (1 source) diazePAM; Translations: [DIAZEPAM] Drug Allergy 08-31-19 24 [facility] (2 sources) Metoclopramide; Translations: [METOCLOPRAMIDE HCL] Drug Allergy 11-20-19 18 [facility] (1 source) PEG 3350-ELECTROLYTES; Translations: [PEG 3350-ELECTROLYTES] Propensity to adverse reactions to drug (disorder) 01-01-20 [facility] (1 source) Food Allergy Formula Propensity to adverse reactions to drug 03-17-20 16 [facility] Medications Current Medications Medication Drug Class(es) Dates Sig (Normalized) Sig (Original) amoxicillin 875 mg / clavulanate 125 mg oral tablet (2 sources) Penicillin-class Antibacterial Start: 05-25-2022 End: 06-04-2022 take 1 tablet by mouth every twelve hours Augmentin 875 mg oral tablet = 1 tab(s), Oral, q12hr, X 10 day(s), # 20 tab(s), Refills(s) 0, Pharmacy: [facility], 180.3, cm, 05/22/22 6:47:00 EST, Height/Length Dosing, 136.5, kg, 05/22/22 6:47:00 EST, Weight Dosing Start Date: 05/25/22 Stop Date: 06/04/22 Status: Ordered Start: 04-18-2022 End: 04-28-2022 take 1 tablet by mouth every twelve hours Augmentin 875 mg oral tablet = 1 tab(s), Oral, q12hr, X 10 day(s), # 20 tab(s), Refills(s) 0, Pharmacy: [facility], 180, cm, 04/14/22 11:50:00 EST, Height/Length Dosing, 135.5, kg, 04/14/22 11:50:00 EST, Weight Dosing Start Date: 04/18/22 Stop Date: 04/28/22 Status: Ordered apixaban 2.5 mg oral tablet (20 sources) Factor Xa Inhibitor Start: 11-19-2023 take 2.5 mg by mouth twice daily Apixaban Active 2.5 MG PO Twice daily November 19, 2023 12:00am Start: 08-16-2022 take 1 tablet by alissa th twice daily apixaban 2.5 mg oral tablet 2.5 mg = 1 tab(s), Oral, BID, # 60 tab(s), Refills(s) 0, Pharmacy: [facility], 180, cm, 08/13/22 9:23:00 EDT, Height/Length Dosing, 136.5, kg, 08/13/22 9:23:00 EDT, Weight Dosing Start Date: 08/16/22 Status: Ordered Start: 12-05-2020 take 2 tablets by mo uth twice daily Eliquis 5 mg oral tablet 10 mg = 2 tab(s), Oral, BID, Refills(s) 0 Start Date: 12/05/20 Status: Ordered Start: 07-28-2018 End: 11-19-2023 take 1 tablet by mouth twice daily Apixaban (Eliquis) 5 mg Tablet Discontinued 5 MG PO Twice daily June 22, 2019 1:00am November 19, 2023 9:04am aspirin 81 mg chewable tablet (20 sources) Platelet Aggregation Inhibitor, Nonsteroidal Anti-inflammatory Drug Start: 11-19-2023 take 81 mg by mouth once daily Aspirin Active 81 MG PO Daily November 19, 2023 12:00am Start: 04-14-2022 aspirin 81 mg Chew Tab 81 mg = 1 tab(s), Chewed, Daily, Refills(s) 0 Start Date: 04/14/22 Status: Ordered take 1 tablet by alissa th in the morning Aspirin Low Dose 81 MG EC tablet TAKE 1 TABLET (81 MG) BY MOUTH IN THE MORNING. Active atorvastatin 80 mg oral tablet (20 sources) HMG-CoA Reductase Inhibitor Start: 03-08-2016 take 80 mg by mouth once daily Atorvastatin Active 80 MG PO Daily May 01, 2017 1:00am baclofen 10 mg oral tablet (20 sources) gamma-Aminobutyr ic Acid-ergic Agonist Start: 05-01-2017 End: 06-22-2019 take 1 tablet by mouth three times daily baclofen (LIORESAL) 10 mg tablet Take 10 mg by mouth 3 (three) times a day. 5 11/02/2017 Active Bariatric Multivitamins with 45 mg Iron oral capsule (4 sources) Start: 11-02-2019 take 1 capsule by mouth three times daily Bariatric Multivitamins with 45 mg Iron oral capsule 1 cap(s), Oral, TID Start Date: 11/02/19 Status: Ordered bumetanide 1 mg oral tablet (20 sources) Loop Diuretic Start: 11-19-2023 take 1 mg by mouth once daily in the morning Bumetanide Active 1 MG PO Every morning November 19, 2023 9:05am Start: 04-14-2022 take 2 tablets by mo uth twice daily bumetanide 1 mg Tab 2 mg = 2 tab(s), Oral, BID, Refills(s) 0 Start Date: 04/14/22 Status: Ordered Start: 04-14-2022 bumetanide (Bu felecia) 1 MG tablet Take 3 mg by mouth. 04/14/2022 Active Start: 06-22-2019 End: 08-23-2020 take 0.5 mg by mouth at bedtime Bumex Discontinued 0.5 MG PO Bedtime June 22, 2019 1:00am August 23, 2020 8:08am Start: 07-28-2018 take 1 tablet by alissa th twice daily bumetanide 2 mg Tab 2 mg = 1 tab(s), Oral, BID, Refills(s) 0 Start Date: 07/28/18 Status: Ordered Start: 05-01-2017 take 1 mg by mouth o nce daily in the morning Bumetanide Active 1 MG PO Every morning May 01, 2017 6:42pm Start: 05-01-2017 End: 11-19-2023 take 2 mg by mouth once daily in the morning Bumetanide Discontinued 2 MG PO Every morning May 01, 2017 1:00am November 19, 2023 9:14am take 1 tablet by alissa th every twelve hours Bumetanide 1 MG 1 tablet Orally bid Active busPIRone hydrochloride 10 mg oral tablet (20 sources) Start: 04-14-2022 take 1 tablet by mouth twice daily busPIRone 10 mg Tab 10 mg = 1 tab(s), Oral, BID, Refills(s) 0 Start Date: 04/14/22 Status: Ordered carvedilol 3.125 mg oral tablet (20 sources) alpha-Adrenergi c Shayan, beta-Adrenergic Shayan Start: 11-19-2023 take 3.125 mg by mouth twice daily Carvedilol Active 3.125 MG PO Twice daily November 19, 2023 12:00am Start: 04-14-2022 take 1 tablet by alissa th twice daily Coreg 3.125 mg Tab 3.125 mg = 1 tab(s), Oral, BID, Refills(s) 0 Start Date: 04/14/22 Status: Ordered Start: 04-14-2022 carvedilol (Co reg) 3.125 MG tablet every 12 (twelve) hours. 04/14/2022 Active Start: 08-23-2020 End: 11-19-2023 take 12.5 mg by mouth twice daily Carvedilol Discontinued 12.5 MG PO Twice daily August 23, 2020 12:00am November 19, 2023 9:05am Start: 03-08-2016 End: 06-22-2019 Carvedilol Discontinued TABL ET May 01, 2017 1:00am June 22, 2019 2:32pm take 1 tablet by alissa th every twelve hours Carvedilol 3.125 MG 1 tablet with food Orally Twice a day Active take 1 tablet by alissa th every twenty-four hours Carvedilol 3.125 MG 1 Tablet Orally once a day 3.25 mg Active cefTRIAXone 2000 mg injection (12 sources) Cephalosporin Antibacterial Start: 02-11-2023 End: 03-01-2023 cefTRIAXone 2 g intravenous injection 2,000 mg = 1 EA, IV Piggyback, Daily, X 18 day(s), # 18 EA, Refills(s) 0 Start Date: 02/11/23 Stop Date: 03/01/23 Status: Ordered cefTRIAXone Sodi um 2 GM as directed Injection Active cefTRIAXone Sodi um 2 GM as directed Injection Active cholecalciferol 0.05 mg oral capsule (20 sources) Vitamin D Start: 08-15-2022 take 1 capsule by mouth once daily cholecalciferol 2000 intl units oral capsule 50 mcg = 1 cap(s), Oral, Daily, # 30 cap(s), Refills(s) 0, Pharmacy: [facility], 180, cm, 08/13/22 9:23:00 EDT, Height/Length Dosing, 136.5, kg, 08/13/22 9:23:00 EDT, Weight Dosing Start Date: 08/15/22 Status: Ordered Start: 08-23-2020 take 1 capsule by mo ut once daily Cholecalciferol (Vitamin D3) (Vitamin D3) 25 mcg (1,000 unit) Capsule Active 25 MCG PO Daily August 23, 2020 12:00am Start: 10-21-2018 take 1 tablet by alissa two times weekly cholecalciferol, vitamin D3, 50,000 units tablet Indications: Intestinal malabsorption, unspecified type , Malnutrition, unspecified type (CMS-HCC) , Vitamin D deficiency Take 1 tablet (50,000 Units total) by mouth 2 (two) times a week. 24 tablet 10/21/2018 Active take 1 capsule by mo ut once daily Cholecalciferol 50 MCG (2000 UT) 1 capsule Orally Once a day Active ciclopirox (20 sources) ciclopirox olami ne (CICLOPIROX TOP) Apply 1 % topically daily. Active Ciclopirox 1%, t id Not-Taking Ciclopirox 1%, t id Active clindamycin 300 mg oral capsule (2 sources) Lincosamide Antibacterial Start: 12-05-2020 take 1 capsule by mouth three times daily clindamycin 300 mg oral cap 300 mg = 1 cap(s), Oral, TID, Refills(s) 0 Start Date: 12/05/20 Status: Ordered clonazePAM 1 mg oral tablet (13 sources) Benzodiazepine Start: 10-14-2023 take 1 tablet by mouth at bedtime clonazePAM (KlonoPIN) 1 MG tablet Take 1 tablet by mouth at bedtime 10/14/2023 Active Start: 10-14-2023 End: 03-02-2024 take 0.5-1 tablets by mouth once daily 30 minutes before bedtime Clonazepam Discontinued 0 PO Daily at bedtime 30 January 25, 2024 5:33pm March 02, 2024 4:15pm 1/2-1 tablet orally daily at bedtime; administer 30 minutes before bedtime Continuous Glucose Sensor (FreeStyle Wilbert 2 Sensor) [facility] (9 sources) Start: 03-07-2024 End: 05-30-2024 Continuous Glucose Sensor (FreeStyle Wilbert 2 Sensor) [facility] Indications: Type 2 diabetes mellitus with hyperglycemia, 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 ([facility]) Inject 1 kit under the skin every 14 (fourteen) days 6 each 1 03/07/2024 05/30/2024 Active dapagliflozin 10 mg oral tablet (20 sources) Sodium-Glucose Cotransporter 2 Inhibitor Start: 04-14-2022 Farxiga 10 MG 1 tablet 04/14/2022 Active Daridorexant (3 sources) Start: 03-02-2024 take 1 tablet by mouth once daily at bedtime Daridorexant (Quviviq) 50 mg tablet Active 50 MG PO Daily at bedtime 90 March 02, 2024 12:00am daridorexant 25 MG Oral Tablet [Quviviq] (20 sources) Start: 04-01-2023 take 1 tablet by mouth 30 minutes before bedtime Quviviq 25 mg TAKE ONE TABLET BY MOUTH 30 MINUTES BEFORE BEDTIME for 30 Mar, Active Start: 01-27-2023 take 1 tablet by alissa th 30 minutes before bedtime Quviviq 25 mg TAKE ONE TABLET BY MOUTH 30 MINUTES BEFORE BEDTIME for 30 Jan, Active Start: 11-18-2022 Start: 11-18-2022 take 1 tablet by alissa th 30 minutes before bedtime Quviviq 25 mg TAKE ONE TABLET BY MOUTH 30 MINUTES BEFORE BEDTIME for 30 Nov, Active Start: 10-13-2022 take 1 tablet by alissa th 30 minutes before bedtime Quviviq 25 mg TAKE ONE TABLET BY MOUTH 30 MINUTES BEFORE BEDTIME for 30 Oct, Active Start: 09-08-2022 take 1 tablet by alissa th 30 minutes before bedtime Quviviq 25 mg TAKE ONE TABLET BY MOUTH 30 MINUTES BEFORE BEDTIME for 30 September, Active Start: 08-13-2022 take 1 tablet by alissa th at bedtime as needed Quviviq 25 mg oral tablet 25 mg = 1 tab(s), Oral, Bedtime, PRN Insomnia, Refills(s) 0 Start Date: 08/13/22 Status: Ordered Start: 07-29-2022 Quviviq 25 MG 1 tablet within 30 minutes of bedtime Orally Once a day for 30 days Jul, Active Start: 06-30-2022 Quviviq 25 MG 1 tablet within 30 minutes of bedtime Orally Once a day for 30 days Instead of zolpidem Jun, Active Daridorexant HCl 25 MG (3 sources) Daridorexant HCl 25 MG 1 tablet within 30 minutes of bedtime Orally Once a day Active diazePAM 2 mg oral tablet (1 source) Benzodiazepine take 5 tablets by mouth once daily at bedtime diazePAM (VALIUM) 2 mg tablet Take 10 mg by mouth once daily at bedtime. Active diclofenac sodium 0.01 mg/mg topical gel (20 sources) Nonsteroidal Anti-inflammatory Drug Start: 05-20-19 diclofenac sodium 1 % gel APPLY TWO TO FOUR TIMES GRAMS TOPICALLY TO AFFECTED AREA EVERY 4-6 HOURS 05/20/2022 Active Start: 04-14-2022 diclofenac 2-4 gm Q4-6 hours to bilateral knees, Refills(s) 0 Start Date: 04/14/22 Status: Ordered Diclofenac Activ e Voltaren 1 % as directed Externally cream Active docusate sodium 100 mg oral capsule (3 sources) Start: 05-24-2022 End: 06-07-2022 take 1 capsule by mouth twice daily Colace 100 mg Cap 100 mg = 1 cap(s), Oral, BID, X 14 day(s), # 28 cap(s), Refills(s) 0, Pharmacy: [facility] 1155, 180.3, cm, 05/22/22 6:47:00 EST, Height/Length Dosing, 136.5, kg, 05/22/22 6:47:00 EST, Weight Dosing Start Date: 05/24/22 Stop Date: 06/07/22 Status: Ordered doxycycline hyclate 100 mg oral tablet (20 sources) Tetracycline -class Drug Start: 06-12-2023 take 1 tablet by mouth every twenty-four hours Doxycycline Hyclate 100 MG 1 tablet Orally Once a day for 10 day(s) Jun, Active Start: 04-18-2022 End: 04-28-2022 take 1 capsule by mouth twice daily doxycycline hyclate 100 mg Cap 100 mg = 1 cap(s), Oral, BID, X 10 day(s), # 20 cap(s), Refills(s) 0, Pharmacy: [facility] [id number], 180, cm, 04/14/22 11:50:00 EST, Height/Length Dosing, 135.5, kg, 04/14/22 11:50:00 EST, Weight Dosing Start Date: 04/18/22 Stop Date: 04/28/22 Status: Ordered Start: 07-28-2018 take 1 capsule by mo uth twice daily doxycycline hyclate 100 mg Cap 100 mg = 1 cap(s), Oral, BID, Other (see comment) Start Date: 07/28/18 Status: Ordered Start: 05-01-2017 End: 11-19-2023 take 1 tablet by mouth twice daily doxycycline (VIBRA-TABS) 100 mg tablet Take 100 mg by mouth 2 (two) times a day. 0 09/07/2017 Active take 10 mL by mouth twice daily Doxycycline Calcium 50 MG/5ML 10 ml Orally Twice a day Not-Taking take 10 mL by mouth twice daily Doxycycline Calcium 50 MG/5ML 10 ml Orally Twice a day Active ertapenem 1000 mg injection (4 sources) Penem Antibacterial Start: 08-18-2022 End: 09-29-2022 inject 1 g intravenously once daily Invanz 1 g Injection 1 gm, IV, Daily, give via PICC line, X 42 day(s), # 42 EA, Refills(s) 0 Start Date: 08/18/22 Stop Date: 09/29/22 Status: Ordered esomeprazole 40 mg oral tablet (20 sources) Proton Pump Inhibitor Start: 12-05-2020 take 40 mg by mouth twice daily Nexium 40 mg, Oral, BID, Refills(s) 0 Start Date: 12/05/20 Status: Ordered Start: 01-08-2016 End: 06-22-2019 Esomeprazole Magnesium Disco ntinued May 01, 2017 1:00am June 22, 2019 2:31pm eszopiclone 2 mg oral tablet (11 sources) take 1 tablet by alissa th every twenty-four hours Lunesta 2 MG 1 tablet immediately before bedtime Orally Once a day Active ferrous sulfate 325 mg oral tablet (20 sources) Start: 11-19-2023 take 325 mg by mouth three times daily Ferrous Sulfate Active 325 MG PO Three times daily November 19, 2023 12:00am Start: 08-13-2022 take 1 tablet by alissa th twice daily ferrous sulfate 325 mg Tab 325 mg = 1 tab(s), Oral, BID, # 60 tab(s), Refills(s) 0 Start Date: 08/13/22 Status: Ordered Start: 05-22-2022 take 1 tablet by [facility] three times daily ferrous sulfate 325 mg Tab 325 mg = 1 tab(s), Oral, TID, # 90 tab(s), Refills(s) 0, Pharmacy: [facility] [id number], 180, cm, 08/13/22 9:23:00 EDT, Height/Length Dosing, 136.5, kg, 08/13/22 9:23:00 EDT, Weight Dosing Start Date: 08/15/22 Status: Ordered take 1 tablet by [facility] three times daily Ferrous Sulfate 325 (65 Fe) MG 1 tablet Orally TID Active finasteride 5 mg oral tablet (20 sources) 5-alpha Reductase Inhibitor Start: 11-19-2023 take 5 mg by mouth once daily Finasteride Active 5 MG PO Daily November 19, 2023 12:00am Start: 08-08-2021 take 1 tablet by [facility] once daily finasteride 5 mg Tab 5 mg = 1 tab(s), Oral, Daily, Refills(s) 0 Start Date: 04/14/22 Status: Ordered fluticasone propionate 0.05 mg/actuat metered dose nasal spray (20 sources) Corticosteroid Start: 11-19-2023 take 1 spray(s) nasal route once daily Fluticasone Propionate (Allergy Relief (Fluticasone)) 50 mcg/actuation spray,suspension Active 1 SPRAY INTRANASAL Daily November 19, 2023 12:00am administer into each nostril Start: 08-13-2022 fluticasone Na shmuel 0.05 mg/inh [place] 2 spray(s), Nasal, Daily Allergy symptoms, 16 gram, Refill(s) 0, each nostril Start Date: 08/13/22 Status: Ordered Start: 03-08-2016 fluticasone (F LONASE) 50 mcg/actuation nasal spray Administer 1 spray into each nostril as needed. 03/08/2016 Active Fluticasone Prop ionate Active fluticasone / salmeterol (20 sources) Corticosteroid, beta2-Adrenergic Agonist Start: 07-28-2018 take 1 puff(s) by inhalation twice daily Advair 250 mcg-50 mcg Powder 1 puff(s), Inhalation, BID, COPD Start Date: 07/28/18 Status: Ordered folic acid 1 mg oral tablet (3 sources) Start: 04-11-2024 End: 08-09-2024 take 1 tablet by mouth in the morning folic acid (Folvite) 1 MG tablet Take 1 mg by mouth in the morning. 04/11/2024 08/09/2024 Active hydrOXYzine hydrochloride 25 mg oral tablet (20 sources) Antihistamine Start: 04-16-2021 take 1 tablet by mouth every eight hours hydrOXYzine HCl 25 MG 1 tablet as needed Orally every 8 hrs for 30 day(s) Apr, Active Start: 07-28-2018 take 1 capsule by mo ut three times daily Vistaril 50 mg Cap 50 mg = 1 cap(s), Oral, TID, Refills(s) 0, Agitation Start Date: 07/28/18 Status: Ordered Insulin Glargine (Lantus U-100 Insulin) 100 unit/mL solution (5 sources) Start: 11-19-2023 inject 30 [IU] by subcutaneous injection twice daily Insulin Glargine (Lantus U-100 Insulin) 100 unit/mL solution Active 30 UNIT SUBCUT Twice daily November 19, 2023 12:00am 24 hr isosorbide mononitrate 30 mg extended release oral tablet (20 sources) Nitrate Vasodilator Start: 03-08-2016 take 30 mg by mouth once daily Isosorbide Mononitrate Active 30 MG PO Daily May 01, 2017 1:00am ammonium lactate 120 mg/ml topical cream (20 sources) Start: 12-05-2020 ammonium lactate Top 12% Crm Topical, BID, Refill(s) 0 Start Date: 12/05/20 Status: Ordered Start: 12-05-2020 ammonium lacta te Top 12% Crm Topical, BID, Refill(s) 0 Start Date: 12/05/20 Status: Ordered Start: 05-01-2017 End: 06-22-2019 Ammonium Lactate Discontinue d May 01, 2017 1:00am June 22, 2019 2:32pm ammonium lactate (LAC-HYDRIN) 12 % lotion Apply topically. Active Ammonium Lactate 12 % 1 application Externally Twice a day Active Lantus 100 units/mL Injection-Insulin (1 source) Start: 11-02-2019 inject 30 [IU] by subcutaneous injection twice daily Lantus 100 units/mL Injection-Insulin 30 unit(s), SubCutaneous, BID, Blood glucose Start Date: 11/02/19 Status: Ordered levoFLOXacin 500 mg oral tablet (2 sources) Quinolone Antimicrobial Start: 12-05-2020 take 1 tablet by mouth every twenty-four hours levofloxacin 500 mg Tab 500 mg = 1 tab(s), Oral, q24hr, Refills(s) 0 Start Date: 12/05/20 Status: Ordered linezolid 600 mg oral tablet (10 sources) Oxazolidinone Antibacterial Start: 01-15-2023 take 1 tablet by mouth every twelve hours linezolid (Zyvox) 600 MG tablet Take 600 mg by mouth every 12 (twelve) hours. 01/15/2023 Active Start: 01-15-2023 End: 01-25-2023 take 1 tablet by mouth every twelve hours linezolid 600 mg Tab 600 mg = 1 tab(s), Oral, q12hr, X 10 day(s), # 20 tab(s), Refills(s) 0 Start Date: 01/15/23 Stop Date: 01/25/23 Status: Ordered lurasidone hydrochloride 60 mg oral tablet (11 sources) Atypical Antipsychotic Start: 06-18-2022 take 1 tablet by mouth once daily Latuda 60 mg oral tablet 60 mg = 1 tab(s), Oral, Daily, Refills(s) 0 Start Date: 06/18/22 Status: Ordered Start: 04-14-2022 take 1 tablet by alissa once daily Latuda 20 mg oral tablet 20 mg = 1 tab(s), Oral, Daily, # 30 tab(s), Refills(s) 0 Start Date: 04/14/22 Status: Ordered metFORMIN hydrochloride 500 mg oral tablet (20 sources) Biguanide Start: 05-20-2022 metFORMIN (Glu cophage) 500 MG tablet 1 tablet 05/20/2022 Active Start: 02-23-2016 End: 11-19-2023 take 1000 mg by mouth twice daily Metformin Discontinued 1000 MG PO Twice daily June 22, 2019 1:00am November 19, 2023 9:10am metFORMIN HCl 10 00 TAKE ONE TABLET BY MOUTH TWICE DAILY WITH MEALS orally bid for 30 day(s) Active methotrexate 2.5 mg oral tablet (3 sources) Folate Analog Metabolic Inhibitor Start: 01-27-2024 End: 01-26-2025 take 7 tablets by mouth every week methotrexate 2.5 MG tablet Take 7 tablets by mouth 1 (one) time per week. 01/27/2024 01/26/2025 Active metOLazone 5 mg oral tablet (12 sources) Thiazide-like Diuretic Start: 01-08-2016 take 1 tablet by mouth once daily metOLazone (ZAROXOLYN) 5 mg tablet Take 5 mg by mouth daily. 01/08/2016 Active midodrine hydrochloride 5 mg oral tablet (9 sources) alpha-Adrenergic Agonist take 1 tablet by mouth three times daily at bedtime midodrine (Proamatine) 5 MG tablet TAKE ONE TABLET BY MOUTH THREE TIMES A DAY ( IN THE MORNING , AT NOON, AND AT BEDTIME ) Active moxifloxacin 5 mg/ml ophthalmic solution (7 sources) Quinolone Antimicrobial Start: 12-29-2023 moxifloxacin (Vigamox) 0.5 % ophthalmic solution Administer 1 drop into both eyes in the morning and 1 drop at noon and 1 drop in the evening and 1 drop before bedtime. 12/29/2023 Active Start: 12-29-2023 take 1 drop(s) into the eye(s) four times daily Moxifloxacin Active 1 DROPS EYE-BOTH Four times daily December 29, 2023 12:00am Multi Vitamins oral tablet (20 sources) Start: 05-20-2022 Multi Vitamins oral tablet 1 tab(s), Oral, Daily, 30 tab(s), Refill(s) 0 Start Date: 05/20/22 Status: Ordered Multivitamin preparation (20 sources) take 1 tablet by mouth once dewayne y Multivitamin - 1 tablet Orally Once a day Active 2 ml naloxone hydrochloride 1 mg/ml prefilled syringe (20 sources) Opioid Antagonist Start: 11-19-2023 Naloxone Act william 1 MG IM As Directed November 19, 2023 12:00am Naloxone HCl 2 M G/2ML as directed Injection Active naloxone 2 mg/ 2 mL Inj Syringe (20 sources) Start: 05-20-2022 naloxone 2 mg/ 2 mL Inj Syringe 2 mg, Nasal, As Directed, . (2 syringes with nasal administration devices. ), # 1 kit(s), Refills(s) 0 Start Date: 05/20/22 Status: Ordered Nitro 0.4 mg Tab (20 sources) Start: 07-28-2018 Nitro 0.4 mg T ab = 1 tab(s), SubLingual, q5min, PRN Chest pain Start Date: 07/28/18 Status: Ordered nitroglycerin 0.4 mg sublingual tablet (20 sources) Nitrate Vasodilator Start: 06-22-2019 nitroglyce rin (Nitrostat) 0.[address] 1 tablet under the tongue every 5 (five) minutes if needed FOR CHEST PAIN FOR 3 DOSES ONLY. IF NO RELIEF, CALL 911 06/08/2023 Active Start: 07-28-2018 Nitro 0.4 mg T ab = 1 tab(s), SubLingual, q5min, PRN Chest pain Start Date: 07/28/18 Status: Ordered Nitroglycerin 0. 4 MG as directed Sublingual Active Normal saline (13 sources) Saline Active ondansetron 8 mg disintegrating oral tablet (20 sources) Serotonin-3 Receptor Antagonist Start: 11-19-19 End: 03-04-20 take 1 tablet by mouth once ondansetron ODT (Zofran-ODT) 8 MG disintegrating tablet Take 1 tablet by mouth every 12 (twelve) hours if needed for vomiting or nausea 03/04/2024 Active Start: 06-22-2019 End: 11-19-2023 take 8 mg by mouth every eight hours Ondansetron Hcl Discontinued 8 MG PO Every 8 hours June 22, 2019 1:00am November 19, 2023 9:13am Start: 07-28-2018 take 1 tablet by alissa th three times daily as needed for nausea Zofran 8 mg Tab 8 mg = 1 tab(s), Oral, TID, PRN Nausea/Vomiting, Nausea Start Date: 07/28/18 Status: Ordered take 1 tablet by alissa th every eight hours as needed ondansetron (ZOFRAN) 4 mg tablet Take 4 mg by mouth every 8 (eight) hours as needed. Active take 1 tablet by alissa th four times daily as needed Ondansetron HCl 8 mg TAKE ONE TABLET BY MOUTH FOUR TIMES A DAY NEEDED for 40 Active take 1 tablet by alissa th once daily as needed Ondansetron 8 MG 1 tablet on the tongue and allow to dissolve as needed Orally Once a day Active One Touch Glucometer (20 sources) Start: 07-12-2019 Start: 07-12-2019 One Touch Gluc ometer 1 subcutaneously use as directed for 30 day(s) Jul, Active oxyCODONE 18 mg 12 hr extended release oral capsule, abuse-deterrent (20 sources) Opioid Agonist Start: 03-28-2024 take 1 capsule by mouth every twelve hours in the morning Xtampza ER 18 MG 12 hr abuse-deterrent capsule Take 18 mg by mouth in the morning and 18 mg before bedtime. 03/28/2024 Active Start: 11-19-2023 take 5 mg by mouth e very six hours Oxycodone Active 5 MG PO Every 6 hours November 19, 2023 12:00am Start: 04-14-2022 take 1 capsule by mo [facility] every twelve hours Xtampza ER 18 mg oral capsule, extended release 18 mg = 1 cap(s), Oral, q12hr, # 7 cap(s), Refills(s) 0 Start Date: 02/11/23 Status: Ordered Start: 12-05-2020 take 1 capsule by mo ut every six hours as needed for pain oxyCODONE 5 mg Cap 5 mg = 1 cap(s), Oral, q6hr, PRN as needed for pain, # 7 cap(s), Refills(s) 0 Start Date: 02/11/23 Status: Ordered Start: 08-23-2020 take 1 capsule by mo uth twice daily Oxycodone Myristate (Xtampza Er) 18 mg Cap,Sprinkl,Er12hr(Dont Crush) Active 18 MG PO Twice daily August 23, 2020 12:00am Start: 11-02-2019 take 1 tablet by alissa th every twelve hours OxyCONTIN 20 mg Tab-ER 20 mg = 1 tab(s), Oral, q12hr, Refills(s) 0, Pain Start Date: 11/02/19 Status: Ordered Start: 11-02-2019 take 1 tablet by alissa th every twelve hours OxyCONTIN 20 mg Tab-ER 20 mg = 1 tab(s), Oral, q12hr, Refills(s) 0, Pain Start Date: 11/02/19 Status: Ordered Start: 06-22-2019 End: 11-19-2023 take 1 tablet by mouth every twelve hours, then take 10 mg by mouth every hour Oxycodone (Oxycontin) 10 mg Tablet,Oral Only,Ext.Rel.12 Hr Discontinued 20 MG PO Q12H June 22, 2019 1:00am November 19, 2023 9:11am Start: 08-16-2018 OXYCONTIN 40 m g 12 hr tablet TAKE 1 TABLET EVERY 12 HOURS FOR 30 DAYS 0 08/16/2018 Active Start: 03-09-2016 End: 06-22-2019 Oxycodone Discontinued TABLE T May 01, 2017 1:00am June 22, 2019 2:26pm [facility] oxyCODONE HCl 5 MG 1 tablet Orally three times a day Active take 2 tablets by [facility] every six hours as needed oxyCODONE HCl 15 MG 2 Tablet Orally every 6 hours as needed 40 mg 1 tablet/bid 18 Mg Active potassium chloride 10 meq extended release oral capsule (20 sources) Start: 11-19-2023 take 10 mEq by mouth twice daily Potassium Chloride Active 10 MEQ PO Twice daily November 19, 2023 12:00am Start: 08-13-2022 take 1 capsule by [facility] twice daily as needed potassium chloride 10 mEq Cap-ER 10 mEq = 1 cap(s), Oral, BID, PRN Other (see comment), # 60 cap(s), Refills(s) 0 Start Date: 08/13/22 Status: Ordered Start: 12-05-2020 take 6 tablets by [facility] twice daily potassium chloride 10 mEq ER Tab 60 mEq = 6 tab(s), Oral, BID, Refills(s) 0 Start Date: 12/05/20 Status: Ordered Start: 05-01-2017 End: 06-22-2019 Potassium Chloride Discontin ued LIQUID May 01, 2017 1:00am June 22, 2019 2:33pm potassium chlori de (KAYCIEL) 20 mEq/15 mL solution Take by mouth daily. Active potassium chlori de CR (Klor-Con) 10 MEQ ER tablet every 12 (twelve) hours. Active take 1 tablet by mouth once pota ssium chloride CR (Klor-Con M20) 20 MEQ ER tablet TAKE ONE TABLET BY MOUTH ONCE TO TWICE DAILY DIRECTED Active prednisoLONE acetate 10 mg/ml ophthalmic suspension (4 sources) Corticosteroid Start: 12-29-2023 take 1 drop(s) into the eye(s) four times daily Prednisolone Acetate Active 1 DROPS EYE-BOTH Four times daily December 29, 2023 12:00am vit 10-iron fum-folic 65-1 mg tablet (1 source) Start: 12-20-2018 take 1 tablet by mouth once daily vit 10-iron fum-folic 65-1 mg tablet Indications: Intestinal malabsorption, unspecified type , Malnutrition, unspecified type (CMS-HCC) Take 1 tablet by mouth daily. 90 tablet 3 12/20/2018 Active primidone 50 mg oral tablet (1 source) Anti-epileptic Agent take 1 tablet by mouth once daily primidone (MYSOLINE) 50 mg tablet Take 50 mg by mouth nightly. Active pyridostigmine bromide 60 mg oral tablet (1 source) pyridostigmine (MESTINON) 30 mg tablet Take 60 mg by mouth. Active Quviviq 25 mg oral tablet (8 sources) Start: 08-13-2022 take 1 tablet by mouth at bedtime as needed Quviviq 25 mg oral tablet 25 mg = 1 tab(s), Oral, Bedtime, PRN Insomnia, Refills(s) 0 Start Date: 08/13/22 Status: Ordered quviviq 25 mg tablet (9 sources) Start: 06-09-2023 take 1 tablet by mouth 30 minutes before bedtime Quviviq 25 mg TAKE ONE TABLET BY MOUTH 30 MINUTES BEFORE BEDTIME for 30 May, Active Start: 05-09-2023 take 1 tablet by alissa 30 minutes before bedtime Quviviq 25 mg TAKE ONE TABLET BY MOUTH 30 MINUTES BEFORE BEDTIME for 30 Apr, Active Start: 04-01-2023 take 1 tablet by alissa th 30 minutes before bedtime Quviviq 25 mg TAKE ONE TABLET BY MOUTH 30 MINUTES BEFORE BEDTIME for 30 Mar, Active Quviviq 25 MG tablet (9 sources) take 1 tablet by mouth once daily 30 minutes before bedtime Quviviq 25 MG tablet TAKE ONE TABLET BY MOUTH ONCE DAILY 30 MINUTES BEFORE BEDTIME Active insulin, regular, human 500 unt/ml injectable solution (20 sources) Insulin Start: 11-19-2023 insulin regular (HumuLIN R U-500) 500 UNIT/ML CONCENTRATED injection .COMPLEX 11/19/2023 Active Start: 11-19-2023 Insulin Regula r Hum U-500 Conc Active 0 SUBCUT .COMPLEX November 19, 2023 12:00am as directed subcutaneously Start: 07-28-2018 Humulin R (Con centrated) 500 units/mL subcutaneous solution See Instructions, Refills(s) 0, Blood glucose Start Date: 07/28/18 Status: Ordered Start: 05-01-2017 End: 06-22-2019 Insulin Regular Hum U-500 Co nc (Humulin R U-500 (Conc) Kwikpen) 500 unit/mL (3 mL) insulin pen Discontinued May 01, 2017 1:00am June 22, 2019 2:31pm HumuLIN R U-500 (CONCENTRATED) 500 UNIT/ML as directed Subcutaneous Active S.A.S.(Saline, Administration of Drug, Saline) (20 sources) Start: 06-23-2022 S.A.S.(Saline, Administration of Drug, Saline) S.A.S.(Saline, Administration of Drug, Saline), Print Requisition, Supply Start Date: 06/23/22 Status: Ordered S.A.S.H.(Saline, Administration of Drug, Saline, Heparin (16 sources) Start: 08-18-2022 S.A.S.H.(Saline, Administration of Drug, Saline, Heparin S.A.S.H.(Saline, Administration of Drug, Saline, Heparin, Print Requisition, Supply Start Date: 08/18/22 Status: Ordered sacubitril 24 mg / valsartan 26 mg oral tablet (20 sources) Angiotensin 2 Receptor Shayan Start: 11-19-2023 take 1 tablet by mouth twice daily Sacubitril-Valsartan (Entresto) 24-26 mg tablet Active 1 TAB PO Twice daily November 19, 2023 12:00am Start: 04-14-2022 take 0.5 tablet by m outh twice daily Entresto 24 mg-26 mg oral tablet 0.5 tab(s), Oral, BID, Refill(s) 0 Start Date: 04/14/22 Status: Ordered Start: 04-14-2022 Entresto 24-26 MG tablet every 12 (twelve) hours. 04/14/2022 Active ENTRESTO 24 mg/2 6 mg 1 orally twice a day Active 0.25 mg, 0.5 mg dose 1.5 ml semaglutide 1.34 mg/ml pen injector (10 sources) semaglutide (OZE MPIC) 0.25 mg or 0.5 mg(2 mg/1.5 mL) pen injector Ozempic 0.25 mg or 0.5 mg (2 mg/1.5 mL) subcutaneous pen injector Active semaglutide (Oze mpic, 1 MG/DOSE,) 2 MG/1.5ML solution pen-injector Inject 1 mg under the skin Active tamsulosin hydrochloride 0.4 mg oral capsule (20 sources) alpha-Adrenergic Shayan Start: 11-19-2023 take 0.4 mg by mouth once daily Tamsulosin Active 0.4 MG PO Daily November 19, 2023 12:00am Start: 01-15-2023 End: 01-15-2023 tamsulosin 0.4 mg Cap 0.4 mg = 1 cap(s), Cap, Oral, Start date 01/15/23 9:00:00 EDT, 01/10/23 16:10:00 EDT Start Date: 01/15/23 Stop Date: 01/15/23 Status: Completed Start: 07-21-2022 take 1 capsule by [facility] twice daily tamsulosin 0.4 mg Cap 0.4 mg = 1 cap(s), Oral, BID, # 60 cap(s), Refills(s) 6, Pharmacy: [facility] [id number], 180, cm, 07/14/22 15:08:00 EST, Height/Length Dosing, 130, kg, 07/14/22 15:08:00 EST, Weight Dosing Start Date: 07/21/22 Status: Ordered Start: 06-23-2022 End: 06-23-2022 tamsulosin 0.4 mg Cap 0.4 mg = 1 cap(s), Cap, Oral, Start date 06/23/22 9:00:00 EST, 06/18/22 20:08:00 EST Start Date: 06/23/22 Stop Date: 06/23/22 Status: Completed Start: 04-18-2022 End: 04-18-2022 tamsulosin 0.4 mg Cap 0.4 mg = 1 cap(s), Cap, Oral, Start date 04/18/22 9:00:00 EST, 04/15/22 9:24:00 EST Start Date: 04/18/22 Stop Date: 04/18/22 Status: Completed Start: 02-25-2022 take 1 capsule by [facility] twice daily tamsulosin 0.4 mg Cap 0.4 mg = 1 cap(s), Oral, BID, # 60 cap(s), Refills(s) 6, Pharmacy: [facility] [id number], 180, cm, 11/30/21 15:13:00 EDT, Height/Length Dosing, 145, kg, 12/01/21 6:57:00 EDT, Weight Dosing Start Date: 02/25/22 Status: Ordered Start: 01-29-2021 End: 12-02-2021 tamsulosin 0.4 mg Cap 0.4 mg = 1 cap(s), Cap, Oral, Start date 12/02/21 21:00:00 EDT, 11/30/21 22:38:00 EDT Start Date: 12/02/21 Stop Date: 12/02/21 Status: Completed Start: 06-22-2019 End: 08-23-2020 take 0.4 mg by mouth once daily Tamsulosin Discontinue d 0.4 MG PO Daily June 22, 2019 1:00am August 23, 2020 8:20am take 1 capsule by [facility] every twenty-four hours in the morning tamsulosin (Flomax) 0.4 MG 24 hr capsule Take 0.4 mg by mouth in the morning and 0.4 mg before bedtime. Active tiotropium 0.018 mg inhalation powder (20 sources) Anticholinergic Start: 06-22-2019 take 1 capsule by inhalation once daily Tiotropium [place] (Spiriva With Handihaler) 18 mcg Capsule, W/Inhalation Device Active 1 CAP INHALATION Daily June 22, 2019 1:00am Start: 07-28-2018 Spiriva 18 mcg Cap 18 microgram = 1 cap(s), Inhalation, Daily, Using only ONE capsule, have the patient inhale twice, COPD Start Date: 07/28/18 Status: Ordered Start: 07-28-2018 Spiriva 18 mcg Cap 18 microgram = 1 cap(s), Inhalation, Daily, Using only ONE capsule, have the patient inhale twice, COPD Start Date: 07/28/18 Status: Ordered tiotropium (SPIR LUIS WITH HANDIHALER) 18 mcg per inhalation capsule Place 18 mcg into inhaler and inhale. Active take 1 capsule by in halation once daily Spiriva HandiHaler 18 MCG 1 capsule by inhaling the contents of the capsule using the HandiHaler device Inhalation Once a day Active take 1 capsule by in halation once daily Spiriva HandiHaler 18 MCG 1 capsule by inhaling the contents of the capsule using the HandiHaler device Inhalation Once a day Active Spiriva HandiHal er 18 MCG Inhalation Active traZODone hydrochloride 50 mg oral tablet (1 source) Serotonin Reuptake Inhibitor take 1 tablet by mouth twice daily traZODone (DESYREL) 50 mg tablet trazodone 50 mg tablet Take 1 tablet twice a day by oral route for 30 days. Active ursodiol 250 mg oral tablet (1 source) Bile Acid Start: 9 take 1 tablet by mouth twice daily ursodiol (ACTIGALL) 250 mg tablet Indications: Rapid weight loss Take 1 tablet (250 mg total) by mouth 2 (two) times a day. 60 tablet 5 10/21/2018 Active valACYclovir 1000 mg oral tablet (7 sources) Herpesvirus Nucleoside Analog DNA Polymerase Inhibitor, Herpes Simplex Virus Nucleoside Analog DNA Polymerase Inhibitor, Herpes Zoster Virus Nucleoside Analog DNA Polymerase Inhibitor Start: 4 valACYclovir (Valtrex) 1 g tablet Take 1,000 mg by mouth in the morning and 1,000 mg in the evening. 12/29/2023 Active divalproex sodium 125 mg delayed release oral tablet (20 sources) Mood Stabilizer, Anti-epileptic Agent Start: 4 take 125 mg by mouth once daily Divalproex Active 125 MG PO Daily November 19, 2023 12:00am Start: 08-13-2022 take 1 capsule by mo [facility] twice daily divalproex sodium 125 mg Cap-EC 125 mg = 1 cap(s), Oral, BID, # 90 cap(s), Refills(s) 0 Start Date: 08/13/22 Status: Ordered Start: 06-18-2022 take 1 tablet by alissa at bedtime divalproex sodium 250 mg Oral EC Tab 250 mg = 1 tab(s), Oral, Bedtime, Refills(s) 0 Start Date: 06/18/22 Status: Ordered Start: 04-15-2022 take 1 tablet by alissa th twice daily divalproex sodium 500 mg Oral EC Tab 500 mg = 1 tab(s), Oral, BID, Refills(s) 0 Start Date: 04/15/22 Status: Ordered Start: 04-15-2022 take 1 tablet by alissa th once daily divalproex sodium 500 mg Oral EC Tab 500 mg = 1 tab(s), Oral, Daily, Refills(s) 0 Start Date: 04/15/22 Status: Ordered Start: 07-28-2018 take 2 tablets by mo [facility] once daily Depakote ER 500 mg Tab-ER 1,000 mg = 2 tab(s), Oral, Daily, Refills(s) 0, Anxiety Start Date: 07/28/18 Status: Ordered Start: 05-01-2017 End: 11-19-2023 take 2 tablets by mouth at bedtime Divalproex (Depakote) 500 mg tablet,delayed release (DR/EC) Discontinued 1000 MG PO Bedtime May 01, 2017 1:00am November 19, 2023 9:06am take 1 tablet by alissa th twice daily divalproex (Depakote) 125 MG EC tablet TAKE ONE TABLET BY MOUTH TWICE A DAY WITH 500MG TABLETS Active take 1 tablet by alissa th every twenty-four hours Divalproex Sodium 125 MG 1 tablet Orally Once a day Active take 1 tablet by alissa th once daily Divalproex Sodium ER 250 mg TAKE ONE TABLET BY MOUTH DAILY for 28 Active 200 ml vancomycin 5 mg/ml injection (20 sources) Glycopeptide Antibacterial Start: 06-23-2022 End: 08-04-2022 take 1 g intravenously every twelve hours vancomycin 1 g/200 mL-NaCl 0.9% intravenous solution 1 gm, IV, q12hr, Check trough twice a week and adjust dosing of vancomycin as needed. Last day will be August 04, 2022. Giva VIA PICC line, X 6 week(s), # 84 EA, Refills(s) 0 Start Date: 06/23/22 Stop Date: 08/04/22 Status: Ordered Vancomycin HCl 1 GM as directed Intravenous Active Vitamin C 500 MG (17 sources) Vitamin C 500 MG as directed Orally Active Vitamin C 500 mg Tab (4 sources) Start: 05-24-2022 End: 06-23-2022 Vitamin C 500 mg Tab 500 mg = 1 tab(s), Oral, BIDWM, X 30 day(s), # 60 tab(s), Refills(s) 0, Pharmacy: [id number], 180.3, cm, 05/22/22 6:47:00 EST, Height/Length Dosing, 136.5, kg, 05/22/22 6:47:00 EST, Weight Dosing Start Date: 05/24/22 Stop Date: 06/23/22 Status: Ordered Vitamin D 25 MCG (1000 UT) (20 sources) take 1 tablet by mouth once dewayne y Vitamin D 25 MCG (1000 UT) 1 tablet Orally Once a day Active Completed/Discontinued Medications Medication Drug Class(es) Dates Sig (Normalized) Sig (Original) atropine sulfate 0.025 mg / diphenoxylate hydrochloride 2.5 mg oral tablet (20 sources) Anticholinergic, Cholinergic Muscarinic Antagonist, Antidiarrheal Start: 11-19-2023 End: 02-27-2024 take 1 tablet by mouth four times daily Diphenoxylate-Atro pine Discontinued 1 TAB PO Four times daily December 29, 2023 12:19pm February 27, 2024 8:22am Start: 02-11-2023 take 1 tablet by alissa th every six hours Lomotil 2.5-0.025 MG 1 tablet as needed Orally Four times a day for 30 days May, Active Start: 11-26-2022 Diphenoxylate- Atropine 2.5-0.025 MG TAKE ONE TABLET BY MOUTH THREE TIMES A DAY NEEDED FOR 10 DAYS for Nov, Active Start: 09-08-2022 Diphenoxylate- Atropine 2.5-0.025 MG TAKE ONE TABLET BY MOUTH THREE TIMES A DAY NEEDED FOR 10 DAYS for September, Active Start: 06-13-2022 take 1 tablet by alissa th three times daily as needed Diphenoxylate-Atropine 2.5-0.025 MG TAKE ONE TABLET BY MOUTH THREE TIMES A DAY NEEDED for Jun, Active Start: 05-20-2022 take 1 tablet by alissa th four times daily atropine-diphenoxylate 0.025 mg-2.5 mg Tab 1 tab(s), Oral, QID for loose stool, Refill(s) 0 Start Date: 05/20/22 Status: Ordered Start: 04-14-2022 Lomotil Refill (s) 0, 2.5mg TID PRN Start Date: 04/14/22 Status: Ordered Start: 02-26-2022 diphenoxylate- atropine (Lomotil) 2.5-0.025 MG tablet 1 tablet 02/26/2022 Active 12 hr buPROPion hydrochloride 200 mg extended release oral tablet (20 sources) Aminoketone Start: 08-23-2020 End: 08-13-2023 take 200 mg by mouth once daily Bupropion Hcl Discontinued 200 MG PO Daily August 23, 2020 12:00am August 13, 2023 9:35am Start: 11-02-2019 take 1 tablet by alissa th once daily Wellbutrin SR 100 mg Tab-ER 100 mg = 1 tab(s), Oral, Daily, Depression Start Date: 11/02/19 Status: Ordered calcium citrate 500 mg oral tablet (20 sources) Start: 08-23-2020 End: 11-19-2023 take 500 mg by mouth three times daily Calcium Citrate Discontinued 500 MG PO Three times daily August 23, 2020 12:00am November 19, 2023 9:13am Calcium Citrate Chewy Bite 500-500 MG-UNIT (19 sources) Calcium Citrate Chewy Bite 500-500 MG-UNIT as directed Orally Not-Taking Calcium Citrate Chewy Bite 500-500 MG-UNIT as directed Orally Active canagliflozin (20 sources) Sodium-Glucose Cotransporter 2 Inhibitor Start: 05-01-2017 End: 06-22-2019 Canagliflozin (Invokana) 100 mg tablet Discontinued TABLET May 01, 2017 6:42pm June 22, 2019 1:32pm Start: 05-01-2017 End: 06-22-2019 Canagliflozin (Invokana) 100 mg tablet Discontinued TABLET May 01, 2017 1:00am June 22, 2019 2:32pm Start: 05-01-2017 End: 06-22-2019 Canagliflozin (Invokana) 100 mg tablet Discontinued TABLET May 01, 2017 12:00am June 22, 2019 1:32pm cephalexin 500 mg oral capsule (20 sources) Cephalosporin Antibacterial Start: 07-08-2019 End: 08-23-2020 take 1 capsule by mouth twice daily Cephalexin (Keflex) 500 mg capsule Discontinued 500 MG PO Twice daily July 08, 2019 1:00am August 23, 2020 8:17am Daridorexant (Quviviq) 25 mg tablet (20 sources) Start: 11-19-2023 End: 03-02-2024 take 1 tablet by mouth once daily at bedtime Daridorexant (Quviviq) 25 mg tablet Discontinued 25 MG PO Daily at bedtime November 19, 2023 12:00am March 02, 2024 4:16pm Start: 11-19-2023 take 1 tablet by alissa th once daily at bedtime Daridorexant (Quviviq) 25 mg tablet Active 25 MG PO Daily at bedtime November 19, 2023 12:00am Start: 09-21-2023 End: 10-14-2023 take 1 tablet by mouth once daily at bedtime Daridorexant (Quviviq) 25 mg tablet Discontinued 25 MG PO Daily at bedtime September 21, 2023 12:44pm October 14, 2023 4:09pm Start: 09-21-2023 End: 09-21-2023 take 1 tablet by mouth once daily at bedtime Daridorexant (Quviviq) 25 mg tablet Discontinued 25 MG PO Daily at bedtime September 21, 2023 12:43pm September 21, 2023 12:44pm Start: 08-13-2023 End: 09-21-2023 take 1 tablet by mouth once daily at bedtime Daridorexant (Quviviq) 25 mg tablet Discontinued 25 MG PO Daily at bedtime August 13, 2023 9:56am September 21, 2023 12:44pm Start: 08-13-2023 take 1 tablet by alissa th once daily at bedtime Daridorexant (Quviviq) 25 mg tablet Active 25 MG PO Daily at bedtime August 13, 2023 9:56am Start: 07-13-2023 End: 08-13-2023 take 1 tablet by mouth once daily at bedtime Daridorexant (Quviviq) 25 mg tablet Discontinued 25 MG PO Daily at bedtime July 13, 2023 4:38pm August 13, 2023 9:59am Start: 07-13-2023 End: 07-13-2023 take 1 tablet by mouth once daily at bedtime Daridorexant (Quviviq) 25 mg tablet Discontinued 25 MG PO Daily at bedtime July 13, 2023 1:00am July 13, 2023 4:38pm empagliflozin 10 mg oral tablet (20 sources) Sodium-Glucose Cotransporter 2 Inhibitor Start: 05-01-2017 End: 06-22-2019 Empagliflozin (Jardiance) 10 mg tablet Discontinued TABLET May 01, 2017 1:00am June 22, 2019 2:31pm ergocalciferol 1.25 mg oral capsule (20 sources) Provitamin D2 Compound Start: 08-15-2022 End: 10-10-2022 ergocalciferol 50,000 intl units Cap 50,000 International_Unit = 1 cap(s), Oral, q7day, X 8 week(s), # 8 cap(s), Refills(s) 0, Pharmacy: [id number], 180, cm, 08/13/22 9:23:00 EDT, Height/Length Dosing, 136.5, kg, 08/13/22 9:23:00 EDT, Weight Dosing Start Date: 08/15/22 Stop Date: 10/10/22 Status: Ordered Start: 05-22-2022 End: 07-03-2022 ergocalciferol 50,000 intl u nits Cap 50,000 International_Unit = 1 cap(s), Oral, q7day, X 6 week(s), # 6 cap(s), Refills(s) 0, Pharmacy: [facility], 180.3, cm, 05/22/22 6:47:00 EST, Height/Length Dosing, 136.5, kg, 05/22/22 6:47:00 EST, Weight Dosing Start Date: 05/22/22 Stop Date: 07/03/22 Status: Ordered Ergocalciferol 1 .25 MG (26217 UT) 1 capsule Orally Active gabapentin 800 mg oral tablet (20 sources) Anti-epileptic Agent Start: 09-24-2023 End: 02-11-2024 take 1 tablet by mouth three times daily Gabapentin Discontinued 0 .ROUTE .COMPLEX 84 January 14, 2024 10:02pm February 11, 2024 9:04am TAKE ONE TABLET BY MOUTH THREE TIMES A DAY Start: 07-28-2018 End: 09-24-2023 take 800 mg by mouth three times daily Gabapentin Discontinued 800 MG PO Three times daily June 22, 2019 1:00am September 24, 2023 10:56am hydrALAZINE hydrochloride 10 mg oral tablet (20 sources) Arteriolar Vasodilator Start: 05-01-2017 End: 06-22-2019 Hydralazine Discontinued TABLET May 01, 2017 1:00am June 22, 2019 2:31pm insulin glargine 100 unt/ml injectable solution (20 sources) Insulin Analog Start: 04-15-2022 End: 04-15-2022 insulin glargine 100 units/mL SubQ Modesta 10 mL 30 unit(s) = 0.3 mL, Injection-Insulin, SubCutaneous, Start date 04/15/22 21:00:00 EST, 04/15/22 9:22:00 EST Start Date: 04/15/22 Stop Date: 04/15/22 Status: Completed Start: 11-02-2019 inject 30 [IU] by landeros bcutaneous injection twice daily Lantus 100 units/mL Injection-Insulin 30 unit(s), SubCutaneous, BID, Blood glucose Start Date: 11/02/19 Status: Ordered Start: 06-22-2019 End: 08-23-2020 inject 20 [IU] by subcutaneous injection once daily at bedtime Insulin Glargine (Lantus U-100 Insulin) 100 unit/mL Solution Discontinued 20 UNIT SUBCUT Daily at bedtime June 22, 2019 1:00am August 23, 2020 8:20am Lantus SoloStar 100 UNIT/ML pen INJECT 26 unit SUBCUTANEOUSLY EVERY DAY Active inject 30 [IU] by landeros bcutaneous injection twice daily Lantus 100 UNIT/ML 30 units Subcutaneous twice a day Active inject 30 [IU] by landeros bcutaneous injection twice daily Lantus 100 UNIT/ML 30 units Subcutaneous twice a day Active Lantus SoloStar 100 UNIT/ML 30 units Subcutaneous twice daily for 30 day(s) E11.4 Active Insulin Lispro (20 sources) Insulin Analog Start: 01-14-2023 End: 01-14-2023 Insulin Lispro Sliding Scale 0-10 Unit(s), Injection-Insulin, SubCutaneous, Start date 01/14/23 21:00:00 EDT Start Date: 01/14/23 Stop Date: 01/14/23 Status: Completed Start: 01-13-2023 End: 01-13-2023 Insulin Lispro Sliding Scale 0-10 Unit(s), Injection-Insulin, SubCutaneous, Start date 01/13/23 16:30:00 EDT Start Date: 01/13/23 Stop Date: 01/13/23 Status: Completed Start: 01-13-2023 End: 01-13-2023 Insulin Lispro Sliding Scale 0-10 Unit(s), Injection-Insulin, SubCutaneous, Start date 01/13/23 11:30:00 EDT Start Date: 01/13/23 Stop Date: 01/13/23 Status: Completed Start: 08-14-2022 End: 08-14-2022 Insulin Lispro Sliding Scale 0-10 Units, Injection-Insulin, SubCutaneous, Start date 08/14/22 21:00:00 EDT Start Date: 08/14/22 Stop Date: 08/14/22 Status: Completed Start: 08-14-2022 End: 08-14-2022 Insulin Lispro Sliding Scale 0-10 Units, Injection-Insulin, SubCutaneous, Start date 08/14/22 16:30:00 EDT Start Date: 08/14/22 Stop Date: 08/14/22 Status: Completed Start: 06-23-2022 End: 06-23-2022 Insulin Lispro Sliding Scale 0-10 Units, Injection-Insulin, SubCutaneous, Start date 06/23/22 11:30:00 EST Start Date: 06/23/22 Stop Date: 06/23/22 Status: Completed Start: 06-23-2022 End: 06-23-2022 Insulin Lispro Sliding Scale 0-10 Units, Injection-Insulin, SubCutaneous, Start date 06/23/22 7:30:00 EST Start Date: 06/23/22 Stop Date: 06/23/22 Status: Completed Start: 04-15-2022 End: 04-15-2022 Insulin Lispro Sliding Scale 0-10 Units, Injection-Insulin, SubCutaneous, Start date 04/15/22 21:00:00 EST Start Date: 04/15/22 Stop Date: 04/15/22 Status: Completed Start: 04-15-2022 End: 04-15-2022 Insulin Lispro Sliding Scale 0-10 Units, Injection-Insulin, SubCutaneous, Start date 04/15/22 16:30:00 EST Start Date: 04/15/22 Stop Date: 04/15/22 Status: Completed Start: 12-02-2021 End: 12-02-2021 Insulin Lispro Sliding Scale 0-10 Units, Injection-Insulin, SubCutaneous, Start date 12/02/21 16:30:00 EDT Start Date: 12/02/21 Stop Date: 12/02/21 Status: Completed Start: 12-02-2021 End: 12-02-2021 Insulin Lispro Sliding Scale 0-10 Units, Injection-Insulin, SubCutaneous, Start date 12/02/21 11:30:00 EDT Start Date: 12/02/21 Stop Date: 12/02/21 Status: Completed Start: 12-02-2021 End: 12-02-2021 Insulin Lispro Sliding Scale 0-10 Units, Injection-Insulin, SubCutaneous, Start date 12/02/21 7:30:00 EDT Start Date: 12/02/21 Stop Date: 12/02/21 Status: Completed HumaLOG KwikPen 200 UNIT/ML 5 units with lunch and dinner, plus 1:40 scale, up to 35 units daily Subcutaneous four times daily for 30 day(s) Active lactulose 667 mg/ml oral solution (20 sources) Osmotic Laxative Start: 05-01-2017 End: 06-22-2019 Lactulose Discontinued SOLUTION May 01, 2017 1:00am June 22, 2019 2:31pm 24 hr levomilnacipran 120 mg extended release oral capsule (20 sources) Serotonin and Norepinephrine Reuptake Inhibitor Start: 05-01-2017 End: 06-22-2019 Levomilnacipran (Fetzima) 120 mg capsule,extended release 24hr Discontinued May 01, 2017 1:00am June 22, 2019 2:33pm losartan potassium 100 mg oral tablet (20 sources) Angiotensin 2 Receptor Shayan Start: 07-28-2018 End: 11-19-2023 take 100 mg by mouth once daily Losartan Discontinued 100 MG PO Daily August 23, 2020 12:00am November 19, 2023 9:13am Start: 05-01-2017 End: 06-22-2019 Losartan Discontinued TABLET May 01, 2017 1:00am June 22, 2019 2:31pm lubiprostone 0.024 mg oral capsule (20 sources) Chloride Channel Activator Start: 05-01-2017 End: 06-22-2019 Lubiprostone (Amitiza) 24 mcg capsule Discontinued May 01, 2017 1:00am June 22, 2019 2:31pm magnesium oxide 400 mg oral tablet (20 sources) Start: 08-23-2020 End: 11-19-2023 take 400 mg by mouth three times daily Magnesium Oxide Discontinued 400 MG PO Three times daily August 23, 2020 12:00am November 19, 2023 9:13am Start: 09-07-2017 take 2 tablets by mo uth twice daily magnesium oxide (MAG-OX) 400 mg tablet Take 2 tablets by mouth 2 (two) times a day. 0 09/07/2017 Active Magnesium Oxide 400 tid Active mirtazapine 15 mg oral tablet (20 sources) Start: 06-22-2019 End: 08-23-2020 take 15 mg by mouth once daily Mirtazapine Discontinued 15 MG PO Daily June 22, 2019 1:00am August 23, 2020 8:20am Start: 10-10-2017 take 3 tablets by mo uth once daily mirtazapine (REMERON) 15 mg tablet Take 45 mg by mouth nightly. 2 10/10/2017 Active OXcarbazepine 150 mg oral tablet (20 sources) Anti-epileptic Agent Start: 08-23-2020 End: 11-19-2023 take 150 mg by mouth once daily Oxcarbazepine Discontinued 150 MG PO Daily August 23, 2020 12:00am November 19, 2023 9:13am take 1 tablet by mouth twice chelsi ly OXcarbazepine (TRILEPTAL) 150 mg tablet Take 150 mg by mouth 2 (two) times a day. Active pantoprazole 40 mg delayed release oral tablet (20 sources) Proton Pump Inhibitor Start: 06-22-2019 End: 08-23-2020 take 40 mg by mouth once daily Pantoprazole Discontinued 40 MG PO Daily June 22, 2019 1:00am August 23, 2020 8:18am pioglitazone 30 mg oral tablet (11 sources) Peroxisome Proliferator Receptor alpha Agonist, Peroxisome Proliferator Receptor gamma Agonist, Thiazolidinedione take 1 tablet by mouth once daily Pioglitazone HCl 30 MG TAKE 1 TABLET BY MOUTH DAILY Oral for 28 Days Not-Taking spironolactone 50 mg oral tablet (20 sources) Aldosterone Antagonist Start: 04-18-2022 End: 04-18-2022 Aldactone 50 mg Tab 100 mg = 2 tab(s), Tab, Oral, Start date 04/18/22 9:00:00 EST, 04/15/22 9:24:00 EST Start Date: 04/18/22 Stop Date: 04/18/22 Status: Completed Start: 07-28-2018 take 100 mg by mouth once daily Spironolactone Active 100 MG PO Daily August 23, 2020 12:00am take 1 tablet by alissa th once daily spironolactone (ALDACTONE) 25 mg tablet Take 25 mg by mouth daily. Active take 1 tablet by alissa th in the morning spironolactone (Aldactone) 50 MG tablet Take 50 mg by mouth in the morning. Active terazosin 5 mg oral capsule (20 sources) alpha-Adrenergic Shayan Start: 09-07-2017 End: 11-19-2023 take 5 mg by mouth once daily Terazosin Discontinued 5 MG PO Daily June 22, 2019 1:00am November 19, 2023 9:13am Vitamin D3 1000 intl units oral capsule (14 sources) Start: 12-05-2020 take 1 capsule by mouth once daily Vitamin D3 1000 intl units oral capsule 1,000 International_Uni t = 1 cap(s), Oral, Daily, Refills(s) 0 Start Date: 12/05/20 Status: Ordered vortioxetine 20 mg oral tablet (20 sources) Start: 08-23-2020 End: 08-13-2023 take 1 tablet by mouth once daily Vortioxetine (Trintellix) 20 mg Tablet Discontinued 20 MG PO Daily August 23, 2020 12:00am August 13, 2023 9:39am vortioxetine (TR INTELLIX) 10 mg tablet daily. Active zolpidem tartrate 10 mg oral tablet (20 sources) gamma-Aminobutyric Acid-ergic Agonist Start: 02-09-2016 End: 08-13-2023 take 10 mg by mouth once daily Zolpidem Discontinued 10 MG PO Daily June 22, 2019 1:00am August 13, 2023 9:39am Problems Active Problems Problem Classification Problem Date Documented Da te Episodic/Chronic Abdominal hernia (20 sources) Hernia of abdominal cavity; Translations: [Unspecified abdominal hernia without obstruction or gangrene] Episodic Abdominal pain (20 sources) Abdominal pain; Translations: [Unspecified abdominal pain] Onset: 2 Episodic Acute myocardial infarction (20 sources) Myocardial infarction; Translations: [Acute myocardial infarction, unspecified] Onset: 1 07-28-2018 Chronic Anxiety disorders (20 sources) Anxiety disorder, unspecified; Translations: [Anxiety disorder] Onset: 2 Chronic Aortic; peripheral; and visceral artery aneurysms (20 sources) Abdominal aortic aneurysm without rupture; Translations: [Abdominal aortic aneurysm, without rupture] 05-20-2022 Chronic Calculus of urinary tract (20 sources) History of calculus of kidney 12-24-2020 Episodic Cardiac dysrhythmias (20 sources) Paroxysmal atrial fibrillation; Translations: [Unspecified atrial fibrillation] Onset: 2 Chronic Chronic kidney disease (1 source) Chronic kidney disease; Translations: [Chronic kidney disease, unspecified] Onset: 2 Chronic Chronic ulcer of skin (20 sources) Pressure ulcer stage 4; Translations: [Pressure ulcer of unspecified site, stage 4] Onset: 6 06-22-2019 Chronic Complication of device; implant or graft (20 sources) Other specified complication of vascular prosthetic devices, implants and grafts, initial encounter; Translations: [Occlusion of peripherally inserted central catheter (PICC) line] 05-01-2017 Chronic Complication of device; implant or graft (1 source) Blocked catheter; Translations: [Occlusion of peripherally inserted central catheter (PICC) line] Episodic Complications of surgical procedures or medical care (20 sources) Postoperative complication; Translations: [Other postprocedural complications and disorders of digestive system] Onset: 3 Episodic Congestive heart failure; nonhypertensive (20 sources) Congestive heart failure; Translations: [Heart failure] Onset: 4 Resolved: 3 07-28-2018 Chronic Coronary atherosclerosis and other heart disease (20 sources) Coronary arteriosclerosis; Translations: [Atherosclerotic heart disease of nikolai coronary artery without angina pectoris] Onset: 2 Resolved: 3 07-28-2018 Chronic Deficiency and other anemia (20 sources) Anemia; Translations: [Anemia, unspecified] Onset: 2 Episodic Deficiency and other anemia (20 sources) Chronic anemia 05-20-2022 Episodic Diabetes mellitus with complications (20 sources) Diabetic foot ulcer; Translations: [Peripheral neuropathy due to type 2 diabetes mellitus] Onset: 1 Chronic Diabetes mellitus without complication (20 sources) Diabetes mellitus; Translations: [Type 2 diabetes mellitus without complication] Onset: 2 07-28-2018 Chronic Disorders of lipid metabolism (20 sources) Mixed hyperlipidemia; Translations: [Mixed hyperlipidemia] Onset: 2 Chronic Esophageal disorders (20 sources) Gastroesophageal reflux disease without esophagitis; Translations: [Gastro-esophageal reflux disease without esophagitis] Onset: 4 Chronic Essential hypertension (20 sources) Essential (primary) hypertension; Translations: [Essential hypertension] Onset: 2 Chronic Fluid and electrolyte disorders (1 source) Hypo-osmolality and or hyponatremia; Translations: [Hypo-osmolality and hyponatremia] Onset: 2 Episodic Genitourinary symptoms and ill-defined conditions (20 sources) Urge incontinence; Translations: [Incontinence without sensory awareness] Onset: 2 Chronic Genitourinary symptoms and ill-defined conditions (20 sources) Retention of urine; Translations: [Retention of urine, unspecified] Onset: 2 Episodic Glaucoma (20 sources) Unspecified glaucoma; Translations: [Glaucoma] Onset: 1 Chronic Heart valve disorders (4 sources) Unspecified abnormalities of heart beat; Translations: [UNS ABNORMALITIES HEART BEAT] Onset: 2 Episodic Hyperplasia of prostate (20 sources) Benign prostatic hypertrophy with outflow obstruction; Translations: [Benign prostatic hyperplasia with lower urinary tract symptoms] Onset: 2 Chronic Hypertension with complications and secondary hypertension (2 sources) Hypertensive heart disease without heart failure; Translations: [Hypertensive heart disease without heart failure] Onset: 4 Chronic Immunizations and screening for infectious disease (4 sources) Encounter for screening for other viral diseases; Translations: [Encounter for screening for respiratory tuberculosis] Onset: 4 Episodic Infective arthritis and osteomyelitis (except that caused by tuberculosis or sexually transmitted disease) (20 sources) Chronic osteomyelitis; Translations: [Other chronic osteomyelitis, unspecified site] Onset: 7 Chronic Joint disorders and dislocations; trauma-related (20 sources) Tear of meniscus of knee; Translations: [Unspecified tear of unspecified meniscus, current injury, unspecified knee, initial encounter] Episodic Miscellaneous mental health disorders (20 sources) Primary insomnia; Translations: [Primary insomnia] Chronic Noninfectious gastroenteritis (1 source) Noninfective gastroenteritis and colitis, unspecified Episodic Open wounds of extremities (18 sources) Amputated toe of right foot; Translations: [Complete traumatic amputation of one right lesser toe, initial encounter] Chronic Open wounds of extremities (1 source) Open wound of right foot; Translations: [Unspecified open wound, right foot, initial encounter] Onset: 3 Episodic Osteoarthritis (20 sources) Arthritis; Translations: [Unspecified osteoarthritis, unspecified site] Onset: 2 Chronic Other acquired deformities (6 sources) Equinus contracture of the ankle; Translations: [Contracture, right ankle] 03-07-2024 Chronic Other acquired deformities (6 sources) Equinus contracture of the ankle; Translations: [Contracture, left ankle] 03-07-2024 Chronic Other aftercare (20 sources) Long-term current use of insulin; Translations: [group home (current) use of insulin] Episodic Other aftercare (1 source) group home (current) use of insulin Episodic Other aftercare (1 source) terminal operations supervisor (current) use of antibiotics Episodic Other aftercare (1 source) Long-term current use of drug therapy; Translations: [Other terminal operations supervisor (current) drug therapy] Onset: 3 Episodic Other aftercare (1 source) Procedure carried out on subject; Translations: [Encounter for other specified aftercare] Onset: 3 Episodic Other aftercare (3 sources) Other group home (current) drug therapy; Translations: [Other terminal operations supervisor (current) drug therapy] Onset: 4 Episodic Other and ill-defined heart disease (20 sources) Diastolic dysfunction; Translations: [Heart disease, unspecified] Chronic Other and ill-defined heart disease (1 source) Heart disease, unspecified; Translations: [Diastolic dysfunction] Chronic Other bone disease and musculoskeletal deformities (3 sources) Idiopathic aseptic necrosis of bone; 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] Chronic Other bone disease and musculoskeletal deformities (3 sources) Avascular necrosis of bone of hip; Translations: [Idiopathic aseptic necrosis of right femur] Chronic Other bone disease and musculoskeletal deformities (1 source) Idiopathic aseptic necrosis of right femur Chronic Other bone disease and musculoskeletal deformities (1 source) 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 Other bone disease and musculoskeletal deformities (6 sources) Amputee; Translations: [Acquired absence of limb, unspecified] 03-07-2024 Chronic Other circulatory disease (1 source) History of insertion of inferior vena caval filter; Translations: [Presence of other vascular implants and grafts] Onset: 9 10-05-2018 Chronic Other circulatory disease (20 sources) Elevated blood pressure; Translations: [Elevated blood-pressure reading, without diagnosis of hypertension] Episodic Other circulatory disease (20 sources) History of cerebrovascular accident without residual deficits; Translations: [Personal history of transient ischemic attack (TIA), and cerebral infarction without residual deficits] Episodic Other diseases of kidney and ureters (1 source) Renal mass; Translations: [Other specified disorders of kidney and ureter] Onset: 4 09-30-2018 Chronic Other diseases of veins and lymphatics (2 sources) Chronic venous hypertension (idiopathic) with ulcer of left lower extremity; Translations: [Chronic venous hypertension (idiopathic) with ulcer of left lower extremity] Onset: 4 Chronic Other disorders of stomach and duodenum (5 sources) Gastroparesis; Translations: [Gastroparesis] Onset: 2 12-29-2023 Episodic Other eye disorders (3 sources) Unspecified corneal ulcer, bilateral; Translations: [Unspecified corneal ulcer, bilateral] Onset: 4 Episodic Other gastrointestinal disorders (20 sources) Irritable bowel syndrome; Translations: [Irritable bowel syndrome without diarrhea] Chronic Other gastrointestinal disorders (20 sources) Constipation; Translations: [Constipation, unspecified] Episodic Other hereditary and degenerative nervous system conditions (7 sources) Restless legs; Translations: [Restless legs syndrome] 10-14-2023 Chronic Other hereditary and degenerative nervous system conditions (7 sources) Restless legs syndrome; Translations: [Restless legs syndrome (RLS)] 10-14-2023 Chronic Other liver diseases (20 sources) Steatosis of liver; Translations: [Fatty (change of) liver, not elsewhere classified] Onset: 4 09-30-2018 Chronic Other liver diseases (20 sources) Disease of liver; Translations: [Liver disease, unspecified] Chronic Other lower respiratory disease (4 sources) Shortness of breath; Translations: [SHORTNESS OF BREATH] Onset: 2 Episodic Other nervous system disorders (20 sources) Bilateral peripheral neuropathy of lower limbs; Translations: [Unspecified mononeuropathy of bilateral lower limbs] Chronic Other nervous system disorders (2 sources) Unspecified mononeuropathy of bilateral lower limbs; Translations: [Neuropathy involving both lower extremities] Chronic Other nervous system disorders (1 source) Postoperative pain ; Translations: [Other acute postprocedural pain] Onset: 3 Episodic Other non-traumatic joint disorders (1 source) Pain in right knee Episodic Other non-traumatic joint disorders (1 source) Pain in right hip Episodic Other nutritional; endocrine; and metabolic disorders (1 source) Obese class II; Translations: [Body mass index (BMI) 35.0-35.9, adult] Onset: 2 Chronic Other nutritional; endocrine; and metabolic disorders (20 sources) Body mass index 30+ - obesity 12-24-2020 Chronic Other nutritional; endocrine; and metabolic disorders (20 sources) Body mass index 40+ - severely obese; Translations: [Body mass index (BMI) 45.0-49.9, adult] Onset: 9 06-16-2018 Chronic Other nutritional; endocrine; and metabolic disorders (2 sources) Body mass index (BMI) 45.0-49.9, adult Onset: 2 Resolved: 2 Chronic Other nutritional; endocrine; and metabolic disorders (20 sources) Morbid obesity; Translations: [Morbid (severe) obesity due to excess calories] Onset: 4 Chronic Other screening for suspected conditions (not mental disorders or infectious disease) (1 source) Abnormal findings on diagnostic imaging of other specified body structures; Translations: [ABNORML FIND DX IMG OT BODY STRUC] Onset: 2 Chronic Other skin disorders (20 sources) Impaired skin integrity 12-01-2021 Episodic Comment on above: Problem added on doc umentation of skin impairments. Peripheral and visceral atherosclerosis (7 sources) Peripheral vascular disease, unspecified; Translations: [PERIPHERAL VASCULAR DISEASE UNS] Onset: 1 Chronic Pulmonary heart disease (20 sources) Idiopathic pulmonary arterial hypertension ; Translations: [Primary pulmonary hypertension] Chronic Residual codes; unclassified (20 sources) Sleep apnea; Translations: [Sleep apnea, unspecified] Onset: 3 07-28-2018 Chronic Residual codes; unclassified (20 sources) Obstructive sleep apnea syndrome; Translations: [Obstructive sleep apnea (adult) (pediatric)] Onset: 4 Chronic Residual codes; unclassified (9 sources) Obstructive sleep apnea (adult) (pediatric); Translations: [Obstructive sleep apnea (adult)(pediatric)] Onset: 2 Resolved: 2 Chronic Residual codes; unclassified (1 source) Other sleep apnea; Translations: [OTHER SLEEP APNEA] Onset: 1 Chronic Residual codes; unclassified (1 source) Patient encounter status; Translations: [Other specified health status] Onset: 2 Episodic Residual codes; unclassified (8 sources) Insomnia; Translations: [Insomnia, unspecified] 07-13-2023 Episodic Residual codes; unclassified (10 sources) Insomnia, unspecified; Translations: [Insomnia, unspecified] 08-13-2023 Episodic Respiratory failure; insufficiency; arrest (adult) (1 source) Chronic hypoxemic respiratory failure; Translations: [Chronic respiratory failure with hypoxia] Onset: 3 Chronic Rheumatoid arthritis and related disease (7 sources) Rheumatoid arthritis, unspecified; Translations: [Rheumatoid arthritis without rheumatoid factor, unspecified site] Onset: 4 Chronic Unclassified (1 source) At risk for impaired skin integrity 12-01-2021 Comment on above: Problem added based on documenting Arnold score less than or equal to 18, rash, or malnutrition. 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; Translations: [group home (current) use of antimetabolite agent] Onset: 4 Viral infection (9 sources) Disease caused by 2019-nCoV; Translations: [COVID-19] 09-09-2023 Episodic Past or Other Problems Problem Classification Problem Date Documented Da te Episodic/Chronic Acquired foot deformities (1 source) Other deformities of toe(s) (acquired), right foot; Translations: [OTHER DEFORMITIES TOES ACQ RT FOOT] Onset: 06-28-2021 Episodic Chronic obstructive pulmonary disease and bronchiectasis (20 sources) Chronic obstructive lung disease; Translations: [Chronic obstructive pulmonary disease, unspecified] Onset: 2021 Resolved: 02-05-2023 07-28-2018 Chronic Inflammation; infection of eye (except that caused by tuberculosis or sexually transmitteddisease) (2 sources) Unspecified scleritis, bilateral; Translations: [Unspecified scleritis, bilateral] Onset: 01-07-2024 Episodic Mood disorders (20 sources) Moderate recurrent major depression; Translations: [Major depressive disorder, recurrent, moderate] Onset: 04-25-2021 Resolved: 02-05-2023 Chronic Nausea and vomiting (20 sources) Nausea and vomiting; Translations: [Nausea with vomiting, unspecified] Onset: 04-23-2023 Episodic Nonspecific chest pain (4 sources) Other chest pain; Translations: [Chest pain, unspecified] Onset: 06-08-2023 Episodic Occlusion or stenosis of precerebral arteries (10 sources) Occlusion and stenosis of unspecified carotid artery; Translations: [Carotid artery occlusion] Onset: 06-22-2013 Resolved: 02-05-2023 02-05-2023 Chronic Open wounds of head; neck; and trunk (2 sources) Laceration without foreign body of scalp, initial encounter; Translations: [Open wound of abdomen] Onset: 12-30-2018 Episodic Other acquired deformities (1 source) Flexion deformity, right ankle and toes; Translations: [FLEXION DEFORMITY RT ANKLE AND TOES] Onset: 06-28-2021 Episodic Other connective tissue disease (4 sources) Pain in right foot; Translations: [PAIN IN RIGHT FOOT] Onset: 06-19-2021 Episodic Other connective tissue disease (1 source) Diastasis recti; Translations: [Separation of muscle (nontraumatic), other site] Onset: 09-30-2018 09-30-2018 Episodic Other diseases of veins and lymphatics (2 sources) Venous insufficiency (chronic) (peripheral); Translations: [Venous insufficiency (chronic) (peripheral)] Onset: 08-26-2023 Episodic Other disorders of stomach and duodenum (20 sources) Gastroparesis syndrome; Translations: [Gastroparesis] Onset: 04-10-2014 12-29-2023 Episodic Other eye disorders (2 sources) Unspecified corneal ulcer, unspecified eye; Translations: [Unspecified corneal ulcer, unspecified eye] Onset: 01-07-2024 Episodic Other lower respiratory disease (2 sources) Other forms of dyspnea; Translations: [Other forms of dyspnea] Onset: 06-08-2023 Episodic Pancreatic disorders (not diabetes) (1 source) Other specified diseases of pancreas; Translations: [OTHER SPECIFIED DISEASES PANCREAS] Onset: 04-25-2021 Episodic Phlebitis; thrombophlebitis and thromboembolism (20 sources) Deep venous thrombosis; Translations: [History of thromboembolism of vein] Onset: 10-05-2018 Resolved: 02-05-2023 07-28-2018 Episodic Pulmonary heart disease (1 source) H/O: pulmonary embolus; Translations: [Personal history of pulmonary embolism] Onset: 10-05-2018 10-05-2018 Episodic Skin and subcutaneous tissue infections (8 sources) Cellulitis; Translations: [Cellulitis, unspecified] Onset: 11-30-2021 Episodic Spondylosis; intervertebral disc disorders; other back problems (2 sources) Pain in thoracic spine; Translations: [Spinal stenosis] Onset: 04-10-2014 09-30-2018 Episodic Unclassified (1 source) group home (current) use of antimetabolite agent; Translations: [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 Normal [facility] 36 They don't mention i t, but if needed can he hold Eliquis x2 days prior? Normal [facility] 36 Normal [facility] 36on 05-09-2024 Lesley Felder, says criselda de will start on the 05/26 would like further clarity on what it to be given states an order came in for rexulti should both medication be given? Pleashtyn call Emerita with further clarity [phone] [facility] Normal [facility] Orders Onlyon 05-02-2024 Orders Only [id number] Matt Wolff 1960 M Date Provider Department Center 05/02/2024 RUDY STEWART [facility] Family History Family history unknown: Yes [facility] 29on 04-27-2024 29 Addended by: RUDY KINGSTON on: 04/27/2024 07:43 PM Modules accepted: Level of Service [facility] 36on 04-27-2024 36 Pt called back and w as schedule for today (04/27/24) with Dr. Choudhary @ 3:40 pm [facility] 36 Tried to call pt for the second to get him schedule for a knee injection today, no answer lvm [facility] Follow-Upon 04-27-2024 Follow-Up [facility] Orders Onlyon 04-26-2024 Orders Only [id number] Matt Wolff 1960 M Date Provider Department [place] 04/26/2024 RUDY STEWART [facility] Family History Family history unknown: Yes [facility] 36on 04-25-2024 36 [facility] 36on 04-18-2024 36 Order faxed [facility] Orders Onlyon 04-18-2024 Orders Only [id number] Matt Wolff 1960 M Date Provider Department [place] 04/18/2024 RUDY STEWART [facility] Family History Family history unknown: Yes [facility] 36on 04-14-2024 36 TC from [facility] RN placed call on hold and returned to call and call ended. TC to [facility]; LVM for a return call from Zuri HERBERT to discuss PT Infliximab order. Normal [facility] 36 Normal [facility] Telemedicineon 04-13-2024 Telemedicine Normal [facility] 36on 04-11-2024 36 Last visit 01/27/2024 Upcoming 04/13/2024 Normal [facility] Refillon 04-11-2024 Refill Normal [facility] Orders Onlyon 03-03-2024 Orders Only [id number] Matt Wolff 1960 M Date Provider Department [place] 03/03/2024 RUDY STEWART [facility] Family History Family history unknown: Yes Normal [facility] Alanine aminotransferase [En zymatic activity/volume] in Serum or PlasmaOrdered By: Rudy Barr on 03-02-2024 ALT [Catalytic activity/Vol] 22 U/L Normal 7-52 [facility] Comment on above: Performed By: #### C MP, CBC #### [facility] [address] [place] [address] [place] #### IGG SUB #### [facility] , Albumin [Mass/volume] in Ser um or Plasma by Bromocresol green (BCG) dye binding methoOrdered By: Rudy Barr on 03-02-2024 Albumin BCG dye [Mass/Vol] 3.5 g/dL 3.5-5.7 [facility] Alkaline phosphatase [Enzyma tic activity/volume] in Serum or PlasmaOrdered By: Rudy Barr on 03-02-2024 ALP [Catalytic activity/Vol] 57 U/L Normal 34-104 [facility] Comment on above: Result Comment: PERF ORMED BY: [place] [address] PATHOLOGIST SHIRT SORTER JULIANNE VELASQUEZ M.D. Performed By: #### C MP, CBC #### [facility] [address] [place] [address] [place] #### IGG SUB #### [facility] , Aspartate aminotransferase [ Enzymatic activity/volume] in Serum or PlasmaOrdered By: Rudy Barr on 03-02-2024 AST [Catalytic activity/Vol] 20 U/L Normal 13-39 [facility] Comment on above: Performed By: #### C MP, CBC #### [place] [address] [place] #### IGG SUB #### [facility] , Automated basophil %Ordered By: Rudy Barr on 03-02-2024 Basophils/100 WBC (Bld) 0.8 % Normal . [facility] Comment on above: Performed By: #### C MP, CBC #### [place] [address] [place] #### IGG SUB #### [facility] , Automated basophil countOrde red By: Rudy Barr on 03-02-2024 Basophils (Bld) [#/Vol] 0.0 10*3/uL Normal 0.0-0.2 [facility] Comment on above: Result Comment: PERF ORMED BY: [place] [address] PATHOLOGIST SH[employer] SORTER JULIANNE VELASQUEZ M.D. Performed By: #### C MP, CBC #### [place] [address] [place] #### IGG SUB #### [facility] , Automated blood monocyte cou ntOrdered By: uRdy Barr on 03-02-2024 Monocytes (Bld) [#/Vol] 0.7 10*3/uL Normal 0.0-0.8 [facility] Comment on above: Performed By: #### C MP, CBC #### [place] [address] [place] #### IGG SUB #### [facility] , Automated eosinophil %Ordere d By: Ruyd Barr on 03-02-2024 Eosinophils/100 WBC (Bld) 2.1 % Normal . [facility] Comment on above: Performed By: #### C MP, CBC #### [place] [address] [place] #### IGG SUB #### [facility] , Automated eosinophil countOr dered By: Rudy Barr on 03-02-2024 Eosinophils (Bld) [#/Vol] 0.1 10*3/uL Normal 0.0-0.45 [facility] Comment on above: Performed By: #### C MP, CBC #### [facility] [address] [place] [address] [place] #### IGG SUB #### [facility] , Automated monocyte %Ordered By: Rudy Njevan on 03-02-2024 Monocytes/100 WBC (Bld) 13.5 % Normal . [facility] Comment on above: Performed By: #### C MP, CBC #### [place] [address] [place] #### IGG SUB #### [facility] , Automated neutrophil %Ordere d By: Rudy Momo on 03-02-2024 Neutrophils/100 WBC (Bld) 52.2 % Normal . [facility] Comment on above: Performed By: #### C MP, CBC #### [facility] [address] [place] [address] [place] #### IGG SUB #### [facility] , Bilirubin.total [Mass/volume ] in Serum or PlasmaOrdered By: Angelruben Barr on 03-02-2024 Bilirubin [Mass/Vol] 0.7 mg/dL Normal 0.3-1.0 [facility] Comment on above: Performed By: #### C MP, CBC #### [facility] [address] [place] [address] [place] #### IGG SUB #### [facility] , Calcium [Mass/volume] in Ser um or PlasmaOrdered By: Angelruben Barr on 03-02-2024 Calcium [Mass/Vol] 8.7 mg/dL Normal 8.6-10.3 [facility] Comment on above: Performed By: #### C MP, CBC #### [facility] [address] [place] [address] [place] #### IGG SUB #### [facility] , Carbon dioxide, total [Moles /volume] in Serum or PlasmaOrdered By: Rudy Barr on 03-02-2024 CO2 [Moles/Vol] 26.9 mmol/L Normal 21.0-31.0 [facility] Comment on above: Performed By: #### C MP, CBC #### [place] [address] [place] #### IGG SUB #### [facility] , Chloride [Moles/volume] in S shantanu or PlasmaOrdered By: Rudy Barr on 03-02-2024 Chloride [Moles/Vol] 106 mmol/L Normal 98-107 [facility] Comment on above: Performed By: #### C MP, CBC #### [facility] [address] [place] [address] [place] #### IGG SUB #### [facility] , Complete Blood Count Auto Di ffon 03-02-2024 Mean Corpuscular HGB Conc 33.6 g/dL Normal 32.5-35.6 [facility] Comment on above: Performed By: #### C MP, CBC #### [facility] [address] [place] [address] [place] #### IGG SUB #### [facility] , NRBC% 0.2 /100{WBC} Normal 0-0.5 [facility] Comment on above: Performed By: #### C MP, CBC #### [facility] [address] [place] [address] [place] #### IGG SUB #### [facility] , Comprehensive Metabolic Pane brayan 03-02-2024 Albumin [Mass/Vol] 3.5 g/dL Normal 3.5-5.7 [facility] Comment on above: Performed By: #### C MP, CBC #### [place] [address] [place] #### IGG SUB #### [facility] , GFR/1.73 sq M.predicted MDRD (S/P/Bld) [Vol rate/Area] 54.037 mL/min/{1.73_m2} Normal [facility] Comment on above: Performed By: #### C MP, CBC #### [facility] [address] [place] [address] [place] #### IGG SUB #### [facility] , Creatinine [Mass/volume] in Serum or PlasmaOrdered By: Rudy Barr on 03-02-2024 Creatinine [Mass/Vol] 1.46 mg/dL High 0.70-1.30 [facility] Comment on above: Performed By: #### C MP, CBC #### [place] [address] [place] #### IGG SUB #### [facility] , Erythrocyte distribution wid th [Ratio] by Automated countOrdered By: Rudy Barr on 03-02-2024 Erythrocyte distribution width (RBC) [Ratio] 20.6 % High 12.0-14.8 [facility] Comment on above: Performed By: #### C MP, CBC #### [place] [address] [place] #### IGG SUB #### [facility] , Erythrocytes [#/volume] in B lood by Automated countOrdered By: Rudy Barr on 03-02-2024 RBC (Bld) [#/Vol] 3.60 10*6/uL Low 3.90-5.60 [facility] Comment on above: Performed By: #### C MP, CBC #### [facility] [address] [place] [address] [place] #### IGG SUB #### [facility] , Glucose [Mass/volume] in Ser um or PlasmaOrdered By: Rudy Barr on 03-02-2024 Glucose [Mass/Vol] 129 mg/dL High 70-100 [facility] Comment on above: ADA recommended refe rence rangeRandom Glucose Reference Range is dependent on time and content of last meal. Glucose of more than 200 mg/dL in a nonstressed, ambulatory subject supports the diagnosis of Diabetes Mellitus. Result Comment: Camilla om Glucose Reference Range is dependent on time and content of last meal. Glucose of more than 200 mg/dL in a nonstressed, ambulatory subject supports the diagnosis of Diabetes Mellitus. ADA recommended reference range Performed By: #### C MP, CBC #### [facility] [address] [place] [address] [place] #### IGG SUB #### [facility] , Hematocrit [Volume Fraction] of Blood by Automated countOrdered By: Rudy Barr on 03-02-2024 Hematocrit (Bld) [Volume fraction] 31.7 % Low 38.8-50.0 [facility] Comment on above: Performed By: #### C MP, CBC #### [facility] [address] [place] [address] [place] #### IGG SUB #### [facility] , Hemoglobin [Mass/volume] in BloodOrdered By: Rudy Barr on 03-02-2024 Hemoglobin (Bld) [Mass/Vol] 10.7 g/dL Low 13.0-17.0 [facility] Comment on above: Performed By: #### C MP, CBC #### [facility] [address] [place] [address] [place] #### IGG SUB #### [facility] , IgG [Mass/volume] in Serum o r PlasmaOrdered By: Rudy Barr on 03-02-2024 IgG [Mass/Vol] 925 mg/dL [id number] [facility] IgG subclass 1 measurementOr dered By: Rudy Barr on 03-02-2024 IgG subclass 1 (S) [Mass/Vol] 525 mg/dL 248-810 [facility] IgG subclass 2 measurementOr dered By: Rudy Adairh on 03-02-2024 IgG subclass 2 (S) [Mass/Vol] 258 mg/dL 130-555 [facility] IgG subclass 3 measurementOr dered By: Rudy Momo on 03-02-2024 IgG subclass 3 (S) [Mass/Vol] 44 mg/dL 15-102 [facility] IgG, Subclasses (1-4)on 02-09 IgG, Subclass 1 525 mg/dL Normal 248-810 [facility] Comment on above: Performed By: #### C MP, CBC #### [place] [address] [place] #### IGG SUB #### [facility] , IgG, Subclass 2 258 mg/dL Normal 130-555 [facility] Comment on above: Performed By: #### C MP, CBC #### [place] [address] [place] #### IGG SUB #### [facility] , IgG, Subclass 3 44 mg/dL Normal 15-102 [facility] Comment on above: Performed By: #### C MP, CBC #### [facility] [address] [place] [address] [place] #### IGG SUB #### [facility] , IgG, Subclass 4 28 mg/dL Normal 2-96 [facility] Comment on above: Result Comment: Perf ormed at: CB - [facility] [address] [id number] Manager Underwriting: Paco Roa PhD, Phone: [phone] PERFORMED BY: [place] [address] PATHOLOGIST SHIRT SORTER JULIANNE VELASQUEZ M.D. Performed By: #### C MP, CBC #### [place] [address] [place] #### IGG SUB #### [facility] , Immunoglobulin G 925 mg/dL Normal 603-1613 [facility] Comment on above: Performed By: #### C MP, CBC #### [place] [address] [place] #### IGG SUB #### [facility] , Leukocytes [#/volume] correc alicia for nucleated erythrocytes in Blood by Automated counOrdered By: Rudy Barr on 03-02-2024 WBC corrected for nucl RBC Auto (Bld) [#/Vol] 5.4 10*3/uL 4.1-10.5 [facility] Leukocytes [#/volume] in Blo od by Automated countOrdered By: Rudy Barr on 03-02-2024 WBC (Bld) [#/Vol] 5.4 10*3/uL Normal 4.1-10.5 [facility] Comment on above: Performed By: #### C MP, CBC #### [place] [address] [place] #### IGG SUB #### [facility] , Lymphocytes [#/volume] in Bl ood by Automated countOrdered By: Rudy Barr on 03-02-2024 Lymphocytes (Bld) [#/Vol] 1.7 10*3/uL Normal 1.00-4.8 [facility] Comment on above: Performed By: #### C MP, CBC #### [place] [address] [place] #### IGG SUB #### [facility] , Lymphocytes/100 leukocytes i n Blood by Automated countOrdered By: Rudy Barr on 03-02-2024 Lymphocytes/100 WBC (Bld) 31.4 % Normal . [facility] Comment on above: Performed By: #### C MP, CBC #### [facility] [address] [place] [address] [place] #### IGG SUB #### [facility] , MCH [Entitic mass] by Automa alicia countOrdered By: Rudy Barr on 03-02-2024 MCH (RBC) [Entitic mass] 29.6 pg Normal 27.5-35.2 [facility] Comment on above: Performed By: #### C MP, CBC #### [facility] [address] [place] [address] [place] #### IGG SUB #### [facility] , MCHC Auto (RBC) [Mass/Vol]Or dered By: Rudy Barr on 03-02-2024 MCHC (RBC) [Mass/Vol] 33.6 g/dL 32.5-35.6 [facility] [facility] MCV [Entitic volume] by Auto mated countOrdered By: Rudy Barr on 03-02-2024 MCV (RBC) [Entitic vol] 88.1 fL Normal 83.5-101 [facility] Comment on above: Performed By: #### C MP, CBC #### [place] [address] [place] #### IGG SUB #### [facility] , Neutrophils [#/volume] in Bl ood by Automated countOrdered By: Rudy Barr on 03-02-2024 Neutrophils (Bld) [#/Vol] 2.8 10*3/uL Normal 1.8-7.7 [facility] Comment on above: Performed By: #### C MP, CBC #### [place] [address] [place] #### IGG SUB #### [facility] , No Panel InformationOrdered By: Rudy Barr on 03-02-2024 Estimated GFR (CKD-EPI) 54.037 mL/Min [facility] Immunoglobulin G4 28 mg/dL 2-96 [facility] Comment on above: Performed at: [facility] [address] [id number] Director: Paco Roa PhD, Phone: [phone] Pharmacy Creatinine Clearance (Chem N/A [facility] Nucleated erythrocytes [Pres ence] in Blood by Automated countOrdered By: Rudy Barr on 03-02-2024 Nucleated RBC Auto Ql (Bld) 0.2 /100{WBC} 0-0.5 [facility] Orders Onlyon 03-02-2024 Orders Only [id number] Matt Wolff Francisco J 1960 M Date Provider Department Center 03/02/2024 [id number], HISTORICAL RHC RHEUM Keila Heal Family History Family history unknown: Yes Normal [facility] Platelet mean volume [Entiti c volume] in Blood by Automated countOrdered By: Rudy Barr on 03-02-2024 Platelet mean volume (Bld) [Entitic vol] 8.9 fL Normal 6.6-10.1 [facility] Comment on above: Performed By: #### C MP, CBC #### [facility] [address] [place] [address] [place] #### IGG SUB #### [facility] , Platelets [#/volume] in Bloo d by Automated countOrdered By: Rudy Barr on 03-02-2024 Platelets (Bld) [#/Vol] 219 10*3/uL Normal 150-450 [facility] Comment on above: Performed By: #### C MP, CBC #### [facility] [address] [place] [address] [place] #### IGG SUB #### [facility] , Potassium [Moles/volume] in Serum or PlasmaOrdered By: Rudy Barr on 03-02-2024 Potassium [Moles/Vol] 4.3 mmol/L Normal 3.5-5.1 [facility] Comment on above: Performed By: #### C MP, CBC #### [facility] [address] [place] [address] [place] #### IGG SUB #### [facility] , Protein [Mass/volume] in Ser um or PlasmaOrdered By: Rudy Barr on 03-02-2024 Protein [Mass/Vol] 6.0 g/dL Low 6.4-8.9 [facility] Comment on above: Performed By: #### C MP, CBC #### [facility] [address] [place] [address] [place] #### IGG SUB #### [facility] , Serum globulin measurement b y calculation (mass/volume)Ordered By: Rudy Momo on 03-02-2024 Globulin (S) [Mass/Vol] 2.5 g/dL [facility] Comment on above: Performed By: #### C MP, CBC #### [facility] [address] [place] [address] [place] #### IGG SUB #### [facility] , Serum or plasma albumin/glob ulin mass ratioOrdered By: Rudy Momo on 03-02-2024 Albumin/Globulin [Mass ratio] 1.4 {ratio} [facility] Comment on above: Performed By: #### C MP, CBC #### [facility] [address] [place] [address] [place] #### IGG SUB #### [facility] , Serum or plasma anion gap de terminationOrdered By: Rudy Momo on 03-02-2024 Anion gap [Moles/Vol] 10.4 mmol/L Normal 6.0-15.0 [facility] Comment on above: Performed By: #### C MP, CBC #### [facility] [address] [place] [address] [place] #### IGG SUB #### [facility] , Sodium [Moles/volume] in Ser um or PlasmaOrdered By: Angela Momo on 03-02-2024 Sodium [Moles/Vol] 139 mmol/L Normal 136-145 [facility] Comment on above: Performed By: #### C MP, CBC #### [facility] [address] [place] [address] [place] #### IGG SUB #### [facility] , Urea nitrogen [Mass/volume] in Serum or PlasmaOrdered By: Aya Katieyeinna on 03-02-2024 Urea nitrogen [Mass/Vol] 28 mg/dL High 12-02 [facility] Comment on above: Performed By: #### C MP, CBC #### [facility] [address] #### IGG SUB #### [facility] , 37on 02-23-2024 37 Avoid live vaccines during treatment Notify doctor of any new or recurrent infections [facility] 37on 02-09-2024 37 Call provider for fe shi or infections or being treated with antibiotics for active infection. Then also call [facility] to inform us, may need to delay infliximab treatment. [facility] Infusionon 02-09-2024 Infusion [id number] Matt Wolff 1960 M Date Provider Department Center 02/09/2024 [id number] CHAIR 7 [facility] INF [facility] Family History Family history unknown: Yes [facility] 36on 02-03-2024 36 Called pt back to up dated him and pt stated that [facility] got him Scheduled for 02/09/24 to start his Infusions. Pt Labs from [facility] was faxed and scanned into pt media inside pt chart. [facility] 36 [facility] Telephoneon 02-03-2024 Telephone [id number] Matt Wolff 1960 M Date Provider Department Center 02/03/2024 723-THAIS DÍAZ RHC RHEUM Keila Heal Family History Family history unknown: Yes [facility] Orders Onlyon 02-02-2024 Orders Only [id number] Matt Wolff 1960 M Date Provider Department Center 02/02/2024 TERRELL SYKES [facility] INF [facility] Family History Family history unknown: Yes [facility] Follow-Upon 01-27-2024 Follow-Up [facility] 36on 01-20-2024 36 Pts brother called t o cancel appointment today stating that his brother fell while using a lift and has been admitted to the hospital for observation due to blood thinner medication. [facility] Orders Onlyon 01-20-2024 Orders Only [id number] Matt Wolff 1960 M Date Provider Department [place] 01/20/2024 TERRELL SYKES [facility] INF [facility] Family History Family history unknown: Yes Normal [facility] Hepatitis B virus surface Ag [Presence] in Serum or Plasma by Immunoassayon 01-19-2024 HBV surface Ag IA Ql Negative Negative [facility] Myeloperoxidase Ab [Units/vo lume] in Serum by Immunoassayon 01-19-2024 Myeloperoxidase Ab IA Qn (S) <0.2 units 0.0-0.9 [facility] No Panel Informationon 01-18 Atypical p-ANCA <1:20 titer Neg:<1:20 [facility] Comment on above: The atypical pANCA p attern has been observed in asignificant percentage of patients with ulcerative colitis,primary sclerosing cholangitis and autoimmune hepatitis.Performed at: [facility] [employer] [address] [id number] Director: Alice Matthews MD, Phone: [phone] at: [facility] [address] [id number] Director: Paco Roa PhD, Phone: [phone] Hepatitis B Core IgM Antibody Negative Negative [facility] Comment on above: Performed at: [employer] [facility] [address] [id number] Director: Paco Roa PhD, Phone: [phone] Miscellaneous Test COMMENT . [facility] Comment on above: Test Ordered: [id number] Hep Be AbHep Be Ab Note: CB Non Reactive Reference Range: NegativePerformed at: [facility] [address] [id number] Director: Paco Roa PhD, Phone: [phone] Perinuclear ANCA (p-ANCA) Antibody <1:20 titer Neg:<1:20 [facility] Comment on above: The presence of posi tive fluorescence exhibiting P-ANCA orC- ANCA patterns alone is not specific for the diagnosis ofWegener's Granulomatosis (WG) or microscopic polyangiitis.Decisions about treatment should not be based solely onANCA IFA results. The International ANCA Group Consensusrecommends follow up testing of positive sera with both NV-3 and MPO-ANCA enzyme immunoassays. As many as 5% serumsamples are positive only by EIA. Ref. AM J Clin [id number];111:507-513. Proteinase 3 Ab [Units/volum e] in Serum by Immunoassayon 01-19-2024 Proteinase 3 Ab IA Qn (S) <0.2 units 0.0-0.9 [facility] Serum classic neutrophil cyt oplasmic antibody titer by immunofluorescenceon 01-19-2024 Neutrophil cytoplasmic Ab.classic IF (S) [Titer] <1:20 titer Neg:<1:20 [facility] 36on 01-07-2024 36 RN calling PT to [facility] to fax lab orders to. PT states it is [place], [place]. RN called [facility] and confirmed fax: [phone]. Lab orders faxed. 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 Choudhary to call her. Dr. Murphy [phone] [facility] XR hand BI 3Von 12-28-2023 XR hand BI 3V [facility] [address] [address] XRay Report Signed Patient: Matt Waterman MR#: [id number] : 1960 Acct:[id number] Age/Sex: 63 / M ADM Date: 12/28/23 Loc: XD Room: Type: [facility] Attending Dr: Rudy Barr MD Copies to: Rudy Barr MD Ordering Provider: Rudy Barr MD Date of Service: 12/28/23 XR/XR hand BI 3V: M06.9 3 views both hand plain film COMPARISON: None HISTORY: Assessment for rheumatoid arthritis versus osteoarthritis. ACUTE FINDINGS: None DEGENERATIVE CHANGE: Mild interphalangeal and first carpometacarpal degenerative changes identified. No erosive changes. No periosteal inflammation. No soft tissue calcification. No localized osteopenia. SOFT TISSUE FINDINGS: Unremarkable JOINT EFFUSION: None POSTOP CHANGES: None BONY MINERALIZATION: Adequate XR/XR hand BI 3V IMPRESSION: Mild bilateral osteoarthritis. Impression dictated by: Zaheer Nunez M.D.12/28/2023 1:07 PM Dictation Location: [facility]- Transcribed By: [facility] 12/28/23 1307 Dictated By: Zaheer Nunez DO 12/28/23 1258 Signed By: 12/28/23 1307 Normal [facility] ANAon 12-22-2023 EMILI PATTERN Speckled Normal [facility] Comment on above: Performed By: #### L [id number] ####[facility] ([facility])[address] [place] [address] EMILI TITER 1:160 High <=1:40 [facility] Comment on above: Result Comment: Test performed using ANDRES IFA EMILI Hep-2 Test, a pre-standardized assay designed for the qualitative and semi-quantitative detection of antinuclear antibodies. Performed By: #### L [id number] ####[facility] ([facility])[address] [place] [address] ANGIOTENSIN CONVERTING ENZYM Gagandeep 12-22-2023 Angiotensin converting enzyme [Catalytic activity/Vol] 49 U/L Normal 16-85 [facility] Comment on above: Result Comment: Perf ormed By: [facility] [place], [place] [address]Mnnvmiidre Director: Kamaljit Bennett MD, PhDCLIA Number: [id number] Performed By: #### L [id number] ####[facility] ([facility] [place] [address] C-REACTIVE PROTEINon 024 C REACTIVE PROTEIN (MG/L) IN SER/PLAS 3.8 mg/L Normal 0.0-7.0 [facility] Comment on above: Performed By: #### L [id number] ####[facility] ([facility])[address] [place] [address] CYCLIC CITRUL PEPTIDE ANTIBO DY, IGG AND IGAon 12-22-2023 CYCLIC CITRULLINATED PEPTIDE AB, IGG/A 8 Units Normal 0-19 [facility] Comment on above: Result Comment: INTE RPRETIVE INFORMATION: Cyclic Citrullinated Peptide Ab, IgG/A 19 Units or less ................... Negative 20-39 Units ........................ Weak Positive 40-59 Units ........................ Moderate Positive 60 Units or greater ................ Strong PositiveA positive result for cyclic citrullinated peptide (CCP)antibodies in conjunction with consistent clinical features may besuggestive of rheumatoid arthritis (RA). Anti-CCP, IgG/IgAantibodies are present in about 66-74 percent of RA patients andhave specificities of 96-99 percent. Detection of IgA antibodiesin addition to the usual IgG antibodies enhances the sensitivitydue to some RA patients having IgA antibodies to CCP in theabsence of IgG. These autoantibodies may be present in thepreclinical phase of disease, are associated with future RAdevelopment, and may predict radiographic joint destruction.Patients with weak positive results should be monitored andtesting repeated.Performed by [facility],[address] [place] [address] [employer], Carlyle Torrez MD, Lab. DirectorCLIA Number: [id number] Performed By: #### L [id number] ####[facility] [facility])[address] [place] [address] HEPATITIS B CORE ANTIBODY, T OTALon 12-22-2023 HEPATITIS B VIRUS CORE AB (PRESENCE) IN SER/PLAS BY IMM Reactive Abnormal Nonreactive [facility] Comment on above: Performed By: #### L [id number] ####[facility] ([facility])[address] [place] [address] HEPATITIS B SURFACE ANTIGENo n 12-22-2023 HEPATITIS B VIRUS SURFACE AG PRESENCE IN SERUM Non-Reactive Normal Nonreactive [facility] Comment on above: Performed By: #### L [id number] ####[facility] ([facility])[address] [place] [address] HEPATITIS C ANTIBODYon 12-21 HEPATITIS C VIRUS AB PRESENCE IN SERUM Non-Reactive Normal Nonreactive [facility] Comment on above: Performed By: #### L [id number] ####[facility] ([facility])[address] [place] [address] HIV COMBO 4Gon 12-22-2023 HIV COMBO 4G Negative Normal Negative [facility] Comment on above: Performed By: #### L [id number] ####[facility] ([facility])[address] [place] [address] HLA B27 ANTIGENon 12-22-2023 HLA B27 Negative Normal [facility] Comment on above: Performed By: #### L [id number] ####[facility] TISSUE TYPING (HISTOTRAC)[address] [place] [address] [facility] HLA B27 TEST METHOD SSOP by [employer] [facility] Comment on above: Performed By: #### L [id number] ####[facility] TISSUE TYPING (HISTOTRAC)[address] [place] [address] [facility] SIGNED BY Signed by Mark headley CHT([facility]) MT([facility] [employer] Operator Transplant Immunology [facility] Comment on above: Performed By: #### L [id number] ####[facility] TISSUE TYPING (HISTOTRAC)[address] [place] [address] [place] Orders Onlyon 12-22-2023 Orders Only [id number] Matt Wolff 1960 M Date Provider Department Center 12/22/2023 MICHAEL WEAVER [facility] RHEUM Keila Heal Family History Family history unknown: Yes Normal [facility] RHEUMATOID FACTORon 12-22-19 24 Rheumatoid factor Qn [IU]/mL Normal 0-20 [facility] Comment on above: Performed By: #### L [id number] ####[facility] ([facility])[address] [place] [address] SEDIMENTATION RATEon 024 SEDIMENTATION RATE, ERYTHROCYTE 54 mm/hr High <=10 [facility] Comment on above: Performed By: #### L [id number] ####[facility] ([facility])[address] [place] [address] SJOGRENS SYNDROME ANTIBODIES A AND Bon 12-22-2023 DEBORAH TO SSA (RO) ANTIBODY Negative Normal Negative [facility] Comment on above: Performed By: #### L [id number] ####[facility] ([facility])[address] [place] [address] DEBORAH TO SSB (LA) ANTIBODY Negative Normal Negative [facility] Comment on above: Performed By: #### L [id number] ####[facility] ([facility])[address] [place] [address] URIC ACIDon 12-22-2023 Magnesium [Mass/Vol] 7.3 mg/dL Normal 4.4-7.6 [facility] Comment on above: Performed By: #### L [id number] ####[facility] ([facility])[address] [place] [address] Basophils Auto (Bld) [#/Vol] on 11-12-2023 Basophils (Bld) [#/Vol] 0.0 10 3/uL 0.0-0.1 [facility] Basophils/100 WBC Auto (Bld) on 11-12-2023 Basophils/100 WBC (Bld) 0.7 % 0.2-2.0 [facility] Eosinophils/100 WBC Auto (Bl d)on 11-12-2023 Eosinophils/100 WBC (Bld) 3.4 % 0.9-7.0 [facility] Erythrocyte distribution wid th Auto (RBC) [Ratio]on 11-12-2023 Erythrocyte distribution width (RBC) [Ratio] 15.3 % High 11.0-15.0 [facility] Estimated glomerular filtrat ion rate (GFR) non- Americanon 11-12-2023 GFR/1.73 sq M.predicted among non-blacks MDRD (S/P/Bld) [Vol rate/Area] mL/min/{1.73_m2} >=60 [facility] Globulin Calc (S) [Mass/Vol] on 11-12-2023 Globulin (S) [Mass/Vol] 3.8 g/dL [facility] Hematocrit Auto (Bld) [Volum e fraction]on 11-12-2023 Hematocrit (Bld) [Volume fraction] 29.7 % Low 42.0-54.0 [facility] Hemoglobin [Mass/volume] in Bloodon 11-12-2023 Hemoglobin (Bld) [Mass/Vol] 9.5 g/dL Low 14.0-18.0 [facility] Laboratory - Chemistry and C hemistry - challengeon 11-12-2023 Albumin [Mass/Vol] 2.7 g/dL Low 3.4-5.0 [facility] ALP [Catalytic activity/Vol] 75 U/L 46-116 [facility] ALT [Catalytic activity/Vol] 21 U/L 16-63 [facility] AST [Catalytic activity/Vol] 16 U/L 15-37 [facility] Bilirubin [Mass/Vol] 0.5 mg/dL 0.2-1.0 [facility] Calcium [Mass/Vol] 8.5 mg/dL 8.5-10.1 [facility] Chloride [Moles/Vol] 107 mmol/L 98-107 [facility] CO2 [Moles/Vol] 29.2 mmol/L 21.0-32.0 [facility] Creatinine [Mass/Vol] 0.99 mg/dL 0.70-1.30 [facility] GFR/1.73 sq M.predicted MDRD (S/P/Bld) [Vol rate/Area] mL/min/{1.73_m2} >=60 [facility] Glucose [Mass/Vol] 106 mg/dL 74-106 [facility] Potassium [Moles/Vol] 4.0 mmol/L 3.5-5.1 [facility] Protein [Mass/Vol] 6.5 g/dL 6.4-8.2 [facility] Sodium [Moles/Vol] 139 mmol/L 136-145 [facility] Urea nitrogen [Mass/Vol] 17.0 mg/dL 7.0-18.0 [facility] Urea nitrogen/Creatinine [Mass ratio] 17.2 mg/mg [facility] Laboratory - Hematology and Cell countson 11-12-2023 Immature granulocytes/100 WBC (Bld) 0.2 % 0.0-0.5 [facility] Leukocytes [#/volume] correc alicia for nucleated erythrocytes in Blood by Automated counon 11-12-2023 WBC corrected for nucl RBC Auto (Bld) [#/Vol] 5.9 10 3/uL 4.0-11.0 [facility] Lymphocytes Auto (Bld) [#/Vo l]on 11-12-2023 Lymphocytes (Bld) [#/Vol] 1.6 10 3/uL 1.2-3.8 [facility] Lymphocytes/100 WBC Auto (Bl d)on 11-12-2023 Lymphocytes/100 WBC (Bld) 26.7 % 20.5-60.0 [facility] MCH Auto (RBC) [Entitic mass ]on 11-12-2023 MCH (RBC) [Entitic mass] 26.7 pg 25.9-34.0 [facility] MCHC Auto (RBC) [Mass/Vol]on 11-12-2023 MCHC (RBC) [Mass/Vol] 32.0 g/dL 29.9-35.2 [facility] MCV Auto (RBC) [Entitic vol] on 11-12-2023 MCV (RBC) [Entitic vol] 83.4 fL 80.0-94.0 [facility] Monocytes Auto (Bld) [#/Vol] on 11-12-2023 Monocytes (Bld) [#/Vol] 0.5 10 3/uL 0.3-0.8 [facility] Monocytes/100 WBC Auto (Bld) on 11-12-2023 Monocytes/100 WBC (Bld) 7.8 % 1.7-12.0 [facility] Neutrophils Auto (Bld) [#/Vo l]on 11-12-2023 Neutrophils (Bld) [#/Vol] 3.6 10 3/uL 1.4-6.5 [facility] Neutrophils/100 WBC Auto (Bl d)on 11-12-2023 Neutrophils/100 WBC (Bld) 61.2 % 43.0-75.0 [facility] No Panel Informationon 11-11 Eosinophils # (Auto) 0.2 10 3/uL 0.0-0.7 [facility] Immature Granulocyte # (Auto) 0.01 10 3/uL 0.00-0.03 [facility] Vancomycin Level Trough 13.7 ug/mL 5.0-20.0 [facility] Platelet mean volume Auto (B ld) [Entitic vol]on 11-12-2023 Platelet mean volume (Bld) [Entitic vol] 11.4 fL 9.5-13.5 [facility] Platelets Auto (Bld) [#/Vol] on 11-12-2023 Platelets (Bld) [#/Vol] 224 10 3/uL 150-450 [facility] RBC Auto (Bld) [#/Vol]on RBC (Bld) [#/Vol] 3.56 10 6/uL Low 4.70-6.10 [facility] Serum or plasma albumin/glob ulin mass ratioon 11-12-2023 Albumin/Globulin [Mass ratio] 0.7 {ratio} [facility] Serum or plasma anion gap de terminationon 11-12-2023 Anion gap [Moles/Vol] 6.8 mmol/L [facility] Basophils Auto (Bld) [#/Vol] on 11-11-2023 Basophils (Bld) [#/Vol] 0.1 10 3/uL 0.0-0.1 [facility] Basophils/100 WBC Auto (Bld) on 11-11-2023 Basophils/100 WBC (Bld) 0.8 % 0.2-2.0 [facility] Eosinophils/100 WBC Auto (Bl d)on 11-11-2023 Eosinophils/100 WBC (Bld) 2.9 % 0.9-7.0 [facility] Erythrocyte distribution wid th Auto (RBC) [Ratio]on 11-11-2023 Erythrocyte distribution width (RBC) [Ratio] 15.3 % High 11.0-15.0 [facility] Estimated glomerular filtrat ion rate (GFR) non- Americanon 11-11-2023 GFR/1.73 sq M.predicted among non-blacks MDRD (S/P/Bld) [Vol rate/Area] mL/min/{1.73_m2} >=60 [facility] Globulin Calc (S) [Mass/Vol] on 11-11-2023 Globulin (S) [Mass/Vol] 4.0 g/dL [facility] Glucose mean value [Mass/vol ume] in Blood Estimated from glycated hemoglobinon 11-11-2023 Average glucose Estimated from glycated hemoglobin (Bld) [Mass/Vol] 166 mg/dL [facility] Hematocrit Auto (Bld) [Volum e fraction]on 11-11-2023 Hematocrit (Bld) [Volume fraction] 31.5 % Low 42.0-54.0 [facility] Hemoglobin [Mass/volume] in Bloodon 11-11-2023 Hemoglobin (Bld) [Mass/Vol] 9.8 g/dL Low 14.0-18.0 [facility] Brayan 11-11-2023 L Specimen: [id number] Received: 11/13/23 Status: KIMI Moscoso Num: [id number] Spec Type: Surgical Subm Dr: Kole Diaz DPM, MS Tissues: A DIGIT AMPUTATION (LT 2ND TOE) Procedures: HE/2, Gross/Micro L4, Decalcification Age/ Patient Sex Location Account Attending Physician Matt Waterman 63/M LABELL [id number] Kole Diaz DPM, MS SPEC NUM: [id number] RECD: 11/13/23 STATUS: KIMI MOSCOSO NUM: [id number] CHRIS: 11/11/[address]: Kole Diaz DPM, MS ENTERED: 11/13/[address]: Dimas,Lab SPEC TYPE: Surgical DEPT: THEO JACOBSON ORDERED: HE/2, Gross/Micro L4, Decalcification ORDERED: HE/2, Gross/Micro L4, Decalcification Pathological Diagnosis Left second toe, amputation: Skin ulceration with underlying soft tissue acute necrotizing formation. Mild chronic osteomyelitis. Clinical Information Nonhealing ulcer with necrosis of bone, chronic versus subacute osteomyelitis, cellulitis of left second toe. Gross Description Received in formalin labeled with the patient's name, date of and left second toe is a 3.2 x 2.7 x 2.1 cm distal portion of disarticulated digit containing a thickened chappell-brown nail. There is a 2.6 x 2.1 cm crusted, ulcerated chappell-brown lesion adjacent to the nail and covering the entire dorsal surface of the distal aspect of the toe, coming to within 1.0 cm of the nearest skin margin. The remaining skin surface is crusted and containing skin slippage. The skin and soft tissue margins appear grossly nonviable, are inked black and shaved. Sectioning into the digit demonstrates firm yellow spongy bone matrix surrounded by unremarkable yellow-pink soft tissue. The specimen is representatively submitted following decalcification in A1 (skin and soft tissue margins, proximal bone surface) and A2 (full- thickness section of digit). Specimen: [id number] Received: 11/13/23 Status: KIMI Moscoso Num: [id number] Spec Type: Surgical Subm Dr: Kole Diaz,DPM, MS Tissues: A DIGIT AMPUTATION (LT 2ND TOE) Procedures: RAFFAELELeta, Gross/Micro L4, Decalcification Patient: Matt Waterman [id number] (Continued) Specimen: [id number] Received: 11/13/23 (Continued) Signed (signature on file) Birgit Rivera MD 11/16/23 1407 Specimen: [id number] Received: 11/13/23 Status: KIMI Moscoso Num: [id number] Spec Type: Surgical Subm Dr: Kole Diaz,HAMZAH, MS Tissues: A DIGIT AMPUTATION (LT 2ND TOE) Procedures: HE/2, Gross/Micro L4, Decalcification Patient: Matt Waterman [id number] (Continued) Specimen: [id number] Received: 11/13/23 (Continued) CPT Codes 66996 Specimen: [id number] Received: 11/13/23 Status: KIMI Peralesarthur Num: [id number] Spec Type: Surgical Subm Dr: Kole Diaz,HAMZAH, MS Tissues: A DIGIT AMPUTATION (LT 2ND TOE) Procedures: HE/2, Gross/Micro L4, Decalcification Patient: Matt Waterman [id number] (Continued) Signed (signature on file) Birgit Rivera MD 11/16/23 1407 Normal [facility] Laboratory - Chemistry and C hemistry - challengeon 11-11-2023 Albumin [Mass/Vol] 3.0 g/dL Low 3.4-5.0 [facility] ALP [Catalytic activity/Vol] 83 U/L 46-116 [facility] ALT [Catalytic activity/Vol] 22 U/L 16-63 [facility] AST [Catalytic activity/Vol] 18 U/L 15-37 [facility] Bilirubin [Mass/Vol] 0.5 mg/dL 0.2-1.0 [facility] Calcium [Mass/Vol] 9.3 mg/dL 8.5-10.1 [facility] Chloride [Moles/Vol] 106 mmol/L 98-107 [facility] CO2 [Moles/Vol] 27.8 mmol/L 21.0-32.0 [facility] Creatinine [Mass/Vol] 0.94 mg/dL 0.70-1.30 [facility] GFR/1.73 sq M.predicted MDRD (S/P/Bld) [Vol rate/Area] mL/min/{1.73_m2} >=60 [facility] Glucose [Mass/Vol] 98 mg/dL 74-106 [facility] Potassium [Moles/Vol] 3.9 mmol/L 3.5-5.1 [facility] Protein [Mass/Vol] 7.0 g/dL 6.4-8.2 [facility] Sodium [Moles/Vol] 141 mmol/L 136-145 [facility] Urea nitrogen [Mass/Vol] 16.0 mg/dL 7.0-18.0 [facility] Urea nitrogen/Creatinine [Mass ratio] 17.0 mg/mg [facility] Laboratory - Hematology and Cell countson 11-11-2023 HbA1c (Bld) [Mass fraction] 7.4 % High 4.5-6.2 [facility] Comment on above: ADA RECOMMENDED LIMI T 4.0 - 6.0ADA THERAPEUTIC TARGET < 7.0ACTION SUGGESTED> 7.0 Immature granulocytes/100 WBC (Bld) 0.2 % 0.0-0.5 [facility] Leukocytes [#/volume] correc alicia for nucleated erythrocytes in Blood by Automated counon 11-11-2023 WBC corrected for nucl RBC Auto (Bld) [#/Vol] 6.2 10 3/uL 4.0-11.0 [facility] Lymphocytes Auto (Bld) [#/Vo l]on 11-11-2023 Lymphocytes (Bld) [#/Vol] 1.8 10 3/uL 1.2-3.8 [facility] Lymphocytes/100 WBC Auto (Bl d)on 11-11-2023 Lymphocytes/100 WBC (Bld) 29.9 % 20.5-60.0 [facility] MCH Auto (RBC) [Entitic mass ]on 11-11-2023 MCH (RBC) [Entitic mass] 26.1 pg 25.9-34.0 [facility] MCHC Auto (RBC) [Mass/Vol]on 11-11-2023 MCHC (RBC) [Mass/Vol] 31.1 g/dL 29.9-35.2 [facility] MCV Auto (RBC) [Entitic vol] on 11-11-2023 MCV (RBC) [Entitic vol] 83.8 fL 80.0-94.0 [facility] Monocytes Auto (Bld) [#/Vol] on 11-11-2023 Monocytes (Bld) [#/Vol] 0.4 10 3/uL 0.3-0.8 [facility] Monocytes/100 WBC Auto (Bld) on 11-11-2023 Monocytes/100 WBC (Bld) 7.0 % 1.7-12.0 [facility] Neutrophils Auto (Bld) [#/Vo l]on 11-11-2023 Neutrophils (Bld) [#/Vol] 3.6 10 3/uL 1.4-6.5 [facility] Neutrophils/100 WBC Auto (Bl d)on 11-11-2023 Neutrophils/100 WBC (Bld) 59.2 % 43.0-75.0 [facility] No Panel InformationOrdered By: Kole Diaz on 11-11-2023 Acid Fast Culture [facility] Acid Fast Smear [facility] AFB Specimen Processing [facility] No Panel Informationon 11-10 Fungal Smear Result \R\ Fungus Stain [facility] Miscellaneous Test Comment See comment [facility] Comment on above: Specimen Source: TOE LT2 - Toe Left Second - Toe Lt 2nd - 607.100 Eosinophils # (Auto) 0.2 10 3/uL 0.0-0.7 [facility] Immature Granulocyte # (Auto) 0.01 10 3/uL 0.00-0.03 [facility] Platelet mean volume Auto (B ld) [Entitic vol]on 11-11-2023 Platelet mean volume (Bld) [Entitic vol] 11.3 fL 9.5-13.5 [facility] Platelets Auto (Bld) [#/Vol] on 11-11-2023 Platelets (Bld) [#/Vol] 243 10 3/uL 150-450 [facility] RBC Auto (Bld) [#/Vol]on RBC (Bld) [#/Vol] 3.76 10 6/uL Low 4.70-6.10 [facility] Serum or plasma albumin/glob ulin mass ratioon 11-11-2023 Albumin/Globulin [Mass ratio] 0.8 {ratio} [facility] Serum or plasma anion gap de terminationon 11-11-2023 Anion gap [Moles/Vol] 11.1 mmol/L [facility] Basophils Auto (Bld) [#/Vol] on 11-10-2023 Basophils (Bld) [#/Vol] 0.0 10 3/uL 0.0-0.1 [facility] Basophils/100 WBC Auto (Bld) on 11-10-2023 Basophils/100 WBC (Bld) 0.6 % 0.2-2.0 [facility] Eosinophils/100 WBC Auto (Bl d)on 11-10-2023 Eosinophils/100 WBC (Bld) 1.3 % 0.9-7.0 [facility] Erythrocyte distribution wid th Auto (RBC) [Ratio]on 11-10-2023 Erythrocyte distribution width (RBC) [Ratio] 15.2 % High 11.0-15.0 [facility] Estimated glomerular filtrat ion rate (GFR) non- Americanon 11-10-2023 GFR/1.73 sq M.predicted among non-blacks MDRD (S/P/Bld) [Vol rate/Area] mL/min/{1.73_m2} >=60 [facility] Globulin Calc (S) [Mass/Vol] on 11-10-2023 Globulin (S) [Mass/Vol] 4.0 g/dL [facility] Hematocrit Auto (Bld) [Volum e fraction]on 11-10-2023 Hematocrit (Bld) [Volume fraction] 29.7 % Low 42.0-54.0 [facility] Hemoglobin [Mass/volume] in Bloodon 11-10-2023 Hemoglobin (Bld) [Mass/Vol] 9.4 g/dL Low 14.0-18.0 [facility] INR in Platelet poor plasma by Coagulation assayon 11-10-2023 INR Coag (PPP) [Relative time] 1.00 {INR} [facility] Comment on above: DESIRED INR:2.0-3.0 CONDITIONS NOT LISTED BELOW2.5-3.5 FOR PROSTHETIC HEART VALVE REPLACEMENT2.5-3.5 [facility] THROMBOSIS Laboratory - Chemistry and C hemistry - challengeon 11-10-2023 Albumin [Mass/Vol] 3.0 g/dL Low 3.4-5.0 [facility] ALP [Catalytic activity/Vol] 79 U/L 46-116 [facility] ALT [Catalytic activity/Vol] 24 U/L 16-63 [facility] AST [Catalytic activity/Vol] 19 U/L 15-37 [facility] Bilirubin [Mass/Vol] 0.5 mg/dL 0.2-1.0 [facility] Calcium [Mass/Vol] 8.5 mg/dL 8.5-10.1 [facility] Chloride [Moles/Vol] 104 mmol/L 98-107 [facility] CO2 [Moles/Vol] 29.3 mmol/L 21.0-32.0 [facility] Creatinine [Mass/Vol] 0.95 mg/dL 0.70-1.30 [facility] GFR/1.73 sq M.predicted MDRD (S/P/Bld) [Vol rate/Area] mL/min/{1.73_m2} >=60 [facility] Glucose [Mass/Vol] 110 mg/dL High 74-106 [facility] Lactate [Moles/Vol] 0.8 mmol/L 0.4-2.0 [facility] Natriuretic peptide B (Bld) [Mass/Vol] 53.0 pg/mL <=900.0 [facility] Potassium [Moles/Vol] 4.1 mmol/L 3.5-5.1 [facility] Protein [Mass/Vol] 7.0 g/dL 6.4-8.2 [facility] Sodium [Moles/Vol] 140 mmol/L 136-145 [facility] Urea nitrogen [Mass/Vol] 19.0 mg/dL High 7.0-18.0 [facility] Urea nitrogen/Creatinine [Mass ratio] 20.0 mg/mg [facility] Laboratory - Hematology and Cell countson 11-10-2023 Immature granulocytes/100 WBC (Bld) 0.3 % 0.0-0.5 [facility] Leukocytes [#/volume] correc alicia for nucleated erythrocytes in Blood by Automated counon 11-10-2023 WBC corrected for nucl RBC Auto (Bld) [#/Vol] 7.1 10 3/uL 4.0-11.0 [facility] Lymphocytes Auto (Bld) [#/Vo l]on 11-10-2023 Lymphocytes (Bld) [#/Vol] 2.0 10 3/uL 1.2-3.8 [facility] Lymphocytes/100 WBC Auto (Bl d)on 11-10-2023 Lymphocytes/100 WBC (Bld) 28.5 % 20.5-60.0 [facility] MCH Auto (RBC) [Entitic mass ]on 11-10-2023 MCH (RBC) [Entitic mass] 26.3 pg 25.9-34.0 [facility] MCHC Auto (RBC) [Mass/Vol]on 11-10-2023 MCHC (RBC) [Mass/Vol] 31.6 g/dL 29.9-35.2 [facility] MCV Auto (RBC) [Entitic vol] on 11-10-2023 MCV (RBC) [Entitic vol] 83.0 fL 80.0-94.0 [facility] Monocytes Auto (Bld) [#/Vol] on 11-10-2023 Monocytes (Bld) [#/Vol] 0.5 10 3/uL 0.3-0.8 [facility] Monocytes/100 WBC Auto (Bld) on 11-10-2023 Monocytes/100 WBC (Bld) 7.0 % 1.7-12.0 [facility] Neutrophils Auto (Bld) [#/Vo l]on 11-10-2023 Neutrophils (Bld) [#/Vol] 4.4 10 3/uL 1.4-6.5 [facility] Neutrophils/100 WBC Auto (Bl d)on 11-10-2023 Neutrophils/100 WBC (Bld) 62.3 % 43.0-75.0 [facility] No Panel InformationOrdered By: Teri Waters on 11-10-2023 Blood Culture 2 [facility] Blood Culture 1 [facility] No Panel Informationon 11-09 C-Reactive Protein, Quantitative <0.50 mg/dL <=0.50 [facility] Eosinophils # (Auto) 0.1 10 3/uL 0.0-0.7 [facility] Immature Granulocyte # (Auto) 0.02 10 3/uL 0.00-0.03 [facility] Venous Blood Partial Pressure CO2 37.7 mm[Hg] Low 40.0-52.0 [facility] Venous Blood pH 7.416 7.330-7.430 [facility] Platelet mean volume Auto (B ld) [Entitic vol]on 11-10-2023 Platelet mean volume (Bld) [Entitic vol] 11.3 fL 9.5-13.5 [facility] Platelets Auto (Bld) [#/Vol] on 11-10-2023 Platelets (Bld) [#/Vol] 231 10 3/uL 150-450 [facility] Prothrombin time (PT)on PT Coag (PPP) [Time] 10.6 s 9.0-11.6 [facility] RBC Auto (Bld) [#/Vol]on RBC (Bld) [#/Vol] 3.58 10 6/uL Low 4.70-6.10 [facility] Serum or plasma albumin/glob ulin mass ratioon 11-10-2023 Albumin/Globulin [Mass ratio] 0.8 {ratio} [facility] Serum or plasma anion gap de terminationon 11-10-2023 Anion gap [Moles/Vol] 10.8 mmol/L [facility] Serum procalcitonin measurem enton 11-10-2023 Procalcitonin [Mass/Vol] ng/mL 0.00-0.50 [facility] BASIC METABOLIC PANELon 10-09 Anion gap [Moles/Vol] 10 mmol/L Normal 7-20 [facility] Comment on above: Performed By: #### L [id number] ####[facility] ([facility])[address] [place] [address] Calcium [Mass/Vol] 9.4 mg/dL Normal 8.6-10.3 [facility] Comment on above: Performed By: #### L [id number] ####[facility] ([facility])[address] [place] [address] Chloride [Moles/Vol] 103 mmol/L Normal 98-107 [facility] Comment on above: Performed By: #### L [id number] ####[facility] ([facility])[address] [place] [address] CO2 [Moles/Vol] 27 mmol/L Normal 21-31 [facility] Comment on above: Performed By: #### L [id number] ####[facility] ([facility])[address] [place] [address] Creatinine [Mass/Vol] 1.14 mg/dL Normal 0.70-1.30 [facility] Comment on above: Performed By: #### L [id number] ####[facility] ([facility])[address] [place] [id number] GLOMERULAR FILTRATION RATE ML/MIN/1.73 SQ M.PREDICTED 72.7 mL/min/1.73m*2 Normal >60.0 [facility] Comment on above: Result Comment: [facility]???s estimated glomerular filtration rate (eGFR) will no longer include consideration of race in its calculation. The National Kidney Foundation???s eGFR Task Force developed new recommendations for the estimation of the glomerular filtration rate in the [place] They recommend immediate implementation of the new equation refit without the race variable in all laboratories because the calculation does not include race. In addition to not including race in the calculation and reporting, it included diversity in its development, and has acceptable performance characteristics and potential consequences that do not disproportionately affect any one group of individuals. Performed By: #### L [id number] ####[facility] ([facility])[address] [place] [id number] Glucose [Mass/Vol] 110 mg/dL High 70-100 [facility] Comment on above: Performed By: #### L [id number] ####[facility] ([facility])[address] [place] [address] Potassium [Moles/Vol] 4.2 mmol/L Normal 3.5-5.1 [facility] Comment on above: Performed By: #### L [id number] ####[facility] ([facility])[address] [place] [address] Sodium [Moles/Vol] 136 mmol/L Normal 136-145 [facility] Comment on above: Performed By: #### L [id number] ####[facility] ([facility])[address] [place] [address] Urea nitrogen [Mass/Vol] 23 mg/dL Normal 7-25 [facility] Comment on above: Performed By: #### L [id number] ####[facility] ([facility])[address] [place] [address] UREA NITROGEN/CREATININE (MASS RATIO) IN SER/PLAS 20.2 Normal [facility] Comment on above: Performed By: #### L [id number] ####[facility] ([facility])[address] [place] [id number] CBCon 10-20-2023 Erythrocyte distribution width (RBC) [Ratio] 15.4 % High 11.5-15.0 [facility] Comment on above: Performed By: #### L [id number] ####[facility] ([facility])[address] [place] [id number] ERYTHROCYTE MEAN CORPUSCULAR HEMOGLOBIN CONCENTRATION (G/DL) BY AUTOMATED 31.4 g/dL Low 32.0-35.0 [facility] Comment on above: Performed By: #### L [id number] ####[facility] ([facility])[address] [place] [address] Hematocrit (Bld) [Volume fraction] 34.7 % Low 39.0-55.0 [facility] Comment on above: Performed By: #### L [id number] ####[facility] ([facility])[address] [place] [id number] Hemoglobin (Bld) [Mass/Vol] 10.9 g/dL Low 13.0-17.0 [facility] Comment on above: Performed By: #### L [id number] ####[facility] ([facility])[address] [place] [address] MCH (RBC) [Entitic mass] 26.0 pg Low 27.0-33.0 [facility] Comment on above: Performed By: #### L [id number] ####[facility] ([facility])[address] [place] [address] MCV (RBC) [Entitic vol] 82.8 fL Normal 82.0-98.0 [facility] Comment on above: Performed By: #### L [id number] ####[facility] [place] [id number] PLATELETS (10*3/UL) IN BLOOD AUTOMATED COUNT 259 10*3/uL Normal 150-400 [facility] Comment on above: Performed By: #### L [id number] ####[facility] ([facility])[address] [place] [address] RBC (Bld) [#/Vol] 4.19 10*6/uL Low 4.20-5.70 [facility] Comment on above: Performed By: #### L [id number] ####[facility] ([facility])[address] [place] [address] WBC (Bld) [#/Vol] 7.69 10*3/uL Normal 4.00-10.60 [facility] Comment on above: Performed By: #### L [id number] ####[facility] ([place])[address] [place] [id number] Follow-Upon 10-20-2023 Follow-Up [facility] Labon 10-20-2023 Lab [id number] Matt Wolff 1960 M Date Provider Department [place] 10/20/2023 2245-[facility] OPD LAB RESOURCE [facility] OPD [facility] Family History Family history unknown: Yes [facility] 10-06-2023 36 [facility] 09-29-2023 29 Addended by: HOUSTON RIDDLE on: 09/29/2023 02:10 PM Modules accepted: Orders [facility] 29 Addended by: YULIANA ARANGO on: 09/29/2023 02:05 PM Modules accepted: Orders [facility] Clinical Supporton Clinical Support [id number] Matt Wolff 1960 M Date Provider Department [place] 09/29/2023 [id number]-RRS SURV DME [facility] Family History Family history unknown: Yes Normal [facility] Follow-Upon 09-29-2023 Follow-Up [facility] 36on 09-14-2023 36 Grecia with [facility] requested call back from logan in regards to diagnosis code for unaboot [id number] [facility] Telephoneon 09-14-2023 Telephone [facility] 36on 09-04-2023 36 DC to home on 024 Spoke to pt on 09/04/2023 Med rec not completed as pt states his partner reviewed and no questions, gets meds in a pill pack' Pt aware of upcoming appt and has transportation [facility] 36on 09-03-2023 36 Unable to reach pt a fter 2nd attempt [facility] 36 Unable to reach pt. VM msg left for call back [facility] 30on 09-02-2023 30 [facility] 30 [facility] 30 [facility] BASIC METABOLIC PANELon 08-10 Anion gap [Moles/Vol] 15 mmol/L Normal 7-20 [facility] Comment on above: Performed By: #### L [id number] ####[facility] ([facility])[address] [place] [address] Calcium [Mass/Vol] 8.7 mg/dL Normal 8.6-10.3 [facility] Comment on above: Performed By: #### L [id number] ####[facility] ([facility])[address] [place] [address] Chloride [Moles/Vol] 98 mmol/L Normal 98-107 [facility] Comment on above: Performed By: #### L [id number] ####[facility] ([facility])[address] [place] [address] CO2 [Moles/Vol] 28 mmol/L Normal 21-31 [facility] Comment on above: Performed By: #### L [id number] ####[facility] ([facility])[address] [place] [address] Creatinine [Mass/Vol] 1.17 mg/dL Normal 0.70-1.30 [facility] Comment on above: Performed By: #### L [id number] ####[facility] ([facility])[address] [place] [address] GLOMERULAR FILTRATION RATE ML/MIN/1.73 SQ M.PREDICTED 70.5 mL/min/1.73m*2 Normal >60.0 [facility] Comment on above: Result Comment: The [facility]???s estimated glomerular filtration rate (eGFR) will no longer include consideration of race in its calculation. The National Kidney Foundation???s eGFR Task Force developed new recommendations for the estimation of the glomerular filtration rate in the [place] They recommend immediate implementation of the new equation refit without the race variable in all laboratories because the calculation does not include race. In addition to not including race in the calculation and reporting, it included diversity in its development, and has acceptable performance characteristics and potential consequences that do not disproportionately affect any one group of individuals. Performed By: #### L [id number] ####[facility] ([facility])[address] [place] [address] Glucose [Mass/Vol] 142 mg/dL High 70-100 [facility] Comment on above: Performed By: #### L [id number] ####[facility] ([facility])[address] [place] [address] Potassium [Moles/Vol] 3.7 mmol/L Normal 3.5-5.1 [facility] Comment on above: Performed By: #### L [id number] ####[facility] ([facility])[address] [place] [address] Sodium [Moles/Vol] 137 mmol/L Normal 136-145 [facility] Comment on above: Performed By: #### L [id number] ####[facility] ([facility])[address] [place] [address] Urea nitrogen [Mass/Vol] 42 mg/dL High 7-25 [facility] Comment on above: Performed By: #### L [id number] ####[facility] ([facility])[address] [place] [address] UREA NITROGEN/CREATININE (MASS RATIO) IN SER/PLAS 35.9 Normal [facility] Comment on above: Performed By: #### L [id number] ####[facility] [place] [id number] CBCon 09-02-2023 Erythrocyte distribution width (RBC) [Ratio] 16.0 % High 11.5-15.0 [facility] Comment on above: Performed By: #### L [id number] ####[facility] ([facility])[address] [place] [id number] ERYTHROCYTE MEAN CORPUSCULAR HEMOGLOBIN CONCENTRATION (G/DL) BY AUTOMATED 30.2 g/dL Low 32.0-35.0 [facility] Comment on above: Performed By: #### L [id number] ####[facility] ([facility])[address] [place] [id number] Hematocrit (Bld) [Volume fraction] 35.1 % Low 39.0-55.0 [facility] Comment on above: Performed By: #### L [id number] ####[facility] ([facility])[address] [place] [id number] Hemoglobin (Bld) [Mass/Vol] 10.6 g/dL Low 13.0-17.0 [facility] Comment on above: Performed By: #### L [id number] ####[facility] ([facility])[address] [place] [id number] MCH (RBC) [Entitic mass] 25.5 pg Low 27.0-33.0 [facility] Comment on above: Performed By: #### L [id number] ####[facility] ([facility])[address] [place] [id number] MCV (RBC) [Entitic vol] 84.6 fL Normal 82.0-98.0 [facility] Comment on above: Performed By: #### L [id number] ####[facility] ([facility])[address] [place] [id number] PLATELETS (10*3/UL) IN BLOOD AUTOMATED COUNT 174 10*3/uL Normal 150-400 [facility] Comment on above: Performed By: #### L [id number] ####[facility] ([facility])[address] [place] [id number] RBC (Bld) [#/Vol] 4.15 10*6/uL Low 4.20-5.70 [facility] Comment on above: Performed By: #### L [id number] ####[facility] ([facility])[address] [place] [id number] WBC (Bld) [#/Vol] 5.69 10*3/uL Normal 4.00-10.60 [facility] Comment on above: Performed By: #### L [id number] ####[facility] ([facility])[address] [place] [id number] DSon 09-02-2023 DS [facility] MAGNESIUMon 09-02-2023 Magnesium [Mass/Vol] 2.5 mg/dL Normal 1.9-2.7 [facility] Comment on above: Performed By: #### L [id number] ####[facility] ([facility])[place] [id number] POCT GLUCOSE METER UNSOLICIT ED RESULTSon 09-02-2023 Glucose [Mass/Vol] 255 mg/dL High 70-105 [facility] Comment on above: Order Comment: Waive d Testing in the ED is performed under the ED CLIA certificate #[id number]. Result Comment: vcar mon Performed By: #### L [id number] ####[facility] ([facility])[address] [place] [id number] Glucose [Mass/Vol] 175 mg/dL High 70-105 [facility] Comment on above: Order Comment: Waive d Testing in the ED is performed under the ED CLIA certificate #[id number]. Result Comment: vcar mon Performed By: #### L [id number] ####[facility] ([facility])[address] [place] [id number] 30on 09-01-2023 30 Normal [facility] 30 Normal [facility] BASIC METABOLIC PANELon 08-10 Anion gap [Moles/Vol] 13 mmol/L Normal 7-20 [facility] Comment on above: Performed By: #### L [id number] ####[facility] ([facility])[address] [place] [address] Calcium [Mass/Vol] 8.9 mg/dL Normal 8.6-10.3 [facility] Comment on above: Performed By: #### L [id number] ####[facility] ([facility])[address] [place] [address] Chloride [Moles/Vol] 96 mmol/L Low 98-107 [facility] Comment on above: Performed By: #### L [id number] ####[facility] ([facility])[address] [place] [address] CO2 [Moles/Vol] 29 mmol/L Normal 21-31 [facility] Comment on above: Performed By: #### L [id number] ####[facility] ([facility])[address] [place] [address] Creatinine [Mass/Vol] 1.18 mg/dL Normal 0.70-1.30 [facility] Comment on above: Performed By: #### L [id number] ####[facility] ([facility])[address] [place] [address] GLOMERULAR FILTRATION RATE ML/MIN/1.73 SQ M.PREDICTED 69.8 mL/min/1.73m*2 Normal >60.0 [facility] Comment on above: Result Comment: [facility]???s estimated glomerular filtration rate (eGFR) will no longer include consideration of race in its calculation. The National Kidney Foundation???s eGFR Task Force developed new recommendations for the estimation of the glomerular filtration rate in the [place] They recommend immediate implementation of the new equation refit without the race variable in all laboratories because the calculation does not include race. In addition to not including race in the calculation and reporting, it included diversity in its development, and has acceptable performance characteristics and potential consequences that do not disproportionately affect any one group of individuals. Performed By: #### L [id number] ####[facility] ([facility])[address] [place] [address] Glucose [Mass/Vol] 174 mg/dL High 70-100 [facility] Comment on above: Performed By: #### L [id number] ####[facility] ([facility])[address] [place] [address] Potassium [Moles/Vol] 3.9 mmol/L Normal 3.5-5.1 [facility] Comment on above: Performed By: #### L [id number] ####[facility] ([facility])[address] [place] [address] Sodium [Moles/Vol] 134 mmol/L Low 136-145 [facility] Comment on above: Performed By: #### L [id number] ####[facility] ([facility])[address] [place] [address] Urea nitrogen [Mass/Vol] 36 mg/dL High 7-25 [facility] Comment on above: Performed By: #### L [id number] ####[facility] ([facility])[address] [place] [address] UREA NITROGEN/CREATININE (MASS RATIO) IN SER/PLAS 30.5 Normal [facility] Comment on above: Performed By: #### L [id number] ####[facility] ([facility])[address] [place] [address] Anion gap [Moles/Vol] 14 mmol/L Normal 7-20 [facility] Comment on above: Performed By: #### L [id number] ####[facility] ([facility])[address] [place] [address] Calcium [Mass/Vol] 10.3 mg/dL Normal 8.6-10.3 [facility] Comment on above: Performed By: #### L [id number] ####[facility] ([facility])[address] [place] [address] Chloride [Moles/Vol] 91 mmol/L Low 98-107 [facility] Comment on above: Performed By: #### L [id number] ####[facility] [place] [address] CO2 [Moles/Vol] 29 mmol/L Normal 21-31 [facility] Comment on above: Performed By: #### L [id number] ####[facility] [place] [address] Creatinine [Mass/Vol] 1.34 mg/dL High 0.70-1.30 [facility] Comment on above: Performed By: #### L [id number] ####[facility] ([facility])[address] [place] [address] GLOMERULAR FILTRATION RATE ML/MIN/1.73 SQ M.PREDICTED 59.9 mL/min/1.73m*2 Low >60.0 [facility] Comment on above: Result Comment: The [facility]???s estimated glomerular filtration rate (eGFR) will no longer include consideration of race in its calculation. The National Kidney Foundation???s eGFR Task Force developed new recommendations for the estimation of the glomerular filtration rate in the [place] They recommend immediate implementation of the new equation refit without the race variable in all laboratories because the calculation does not include race. In addition to not including race in the calculation and reporting, it included diversity in its development, and has acceptable performance characteristics and potential consequences that do not disproportionately affect any one group of individuals. Performed By: #### L [id number] ####[facility] [place] [address] Glucose [Mass/Vol] 266 mg/dL High 70-100 [facility] Comment on above: Performed By: #### L [id number] ####[facility] [place] [address] Potassium [Moles/Vol] 3.7 mmol/L Normal 3.5-5.1 [facility] Comment on above: Performed By: #### L [id number] ####[facility] [place] [address] Sodium [Moles/Vol] 130 mmol/L Low 136-145 [facility] Comment on above: Performed By: #### L [id number] ####[facility] ([facility])[address] [place] [address] Urea nitrogen [Mass/Vol] 42 mg/dL High 7-25 [facility] Comment on above: Performed By: #### L [id number] ####[facility] ([facility])[address] [place] [address] UREA NITROGEN/CREATININE (MASS RATIO) IN SER/PLAS 31.3 Normal [facility] Comment on above: Performed By: #### L [id number] ####[facility] ([facility])[address] [place] [address] LACTIC ACID WITH 4 HOUR REFL EXon 09-01-2023 LACTATE (MMOL/L) IN SER/PLAS 1.6 mmol/L Normal 0.5-2.2 [facility] Comment on above: Performed By: #### L [id number] ####[facility] ([facility])[address] [facility] [place] [address] MAGNESIUMon 09-01-2023 Magnesium [Mass/Vol] 2.5 mg/dL Normal 1.9-2.7 [facility] Comment on above: Performed By: #### L [id number] ####[facility] ([facility])[address] [place] [address] Magnesium [Mass/Vol] 2.3 mg/dL Normal 1.9-2.7 [facility] Comment on above: Performed By: #### L [id number] ####[facility] ([facility])[address] [place] [address] Orders Onlyon 09-01-2023 Orders Only [id number] Matt Wolff 1960 M Date Provider Department Center 09/01/[id number], IVI MP PAIN Medical [facility] Family History Family history unknown: Yes Normal [facility] POCT GLUCOSE METER UNSOLICIT ED RESULTSon 09-01-2023 Glucose [Mass/Vol] 188 mg/dL High 70-105 [facility] Comment on above: Order Comment: Waive d Testing in the ED is performed under the ED CLIA certificate #[id number]. Result Comment: [email or web address] Performed By: #### L [id number] ####[facility] ([facility])[address] [place] [address] Glucose [Mass/Vol] 215 mg/dL High 70-105 [facility] Comment on above: Order Comment: Waive d Testing in the ED is performed under the ED CLIA certificate #[id number]. Result Comment: [email or web address] mon Performed By: #### L [id number] ####[facility] ([facility])[address] [place] [address] Glucose [Mass/Vol] 219 mg/dL High 70-105 [facility] Comment on above: Order Comment: Waive d Testing in the ED is performed under the ED CLIA certificate #[id number]. Result Comment: [email or web address] mon Performed By: #### L [id number] ####[facility] ([facility])[address] [place] [address] Glucose [Mass/Vol] 245 mg/dL High 70-105 [facility] Comment on above: Order Comment: Waive d Testing in the ED is performed under the ED CLIA certificate #[id number]. Result Comment: [email or web address] mon Performed By: #### L [id number] ####[facility] ([facility])[address] [place] [address] 30on 08-31-2023 30 [facility] 30 [facility] 30 [facility] BASIC METABOLIC PANELon 08-10 Anion gap [Moles/Vol] 13 mmol/L Normal 7-20 [facility] Comment on above: Performed By: #### L [id number] ####[facility] ([facility])[address] [place] [address] Calcium [Mass/Vol] 8.8 mg/dL Normal 8.6-10.3 [facility] Comment on above: Performed By: #### L [id number] ####[facility] [place] [address] Chloride [Moles/Vol] 92 mmol/L Low 98-107 [facility] Comment on above: Performed By: #### L [id number] ####[facility] ([facility])[address] [place] [address] CO2 [Moles/Vol] 33 mmol/L High 21-31 [facility] Comment on above: Performed By: #### L [id number] ####[facility] ([facility])[address] [place] [address] Creatinine [Mass/Vol] 1.53 mg/dL High 0.70-1.30 [facility] Comment on above: Performed By: #### L [id number] ####[facility] ([facility])[address] [place] [address] GLOMERULAR FILTRATION RATE ML/MIN/1.73 SQ M.PREDICTED 51.1 mL/min/1.73m*2 Low >60.0 [facility] Comment on above: Result Comment: The [facility]???s estimated glomerular filtration rate (eGFR) will no longer include consideration of race in its calculation. The National Kidney Foundation???s eGFR Task Force developed new recommendations for the estimation of the glomerular filtration rate in the [place] They recommend immediate implementation of the new equation refit without the race variable in all laboratories because the calculation does not include race. In addition to not including race in the calculation and reporting, it included diversity in its development, and has acceptable performance characteristics and potential consequences that do not disproportionately affect any one group of individuals. Performed By: #### L [id number] ####[facility] ([facility])[address] [place] [address] Glucose [Mass/Vol] 165 mg/dL High 70-100 [facility] Comment on above: Performed By: #### L [id number] ####[facility] ([facility])[address] [place] [address] Potassium [Moles/Vol] 4.0 mmol/L Normal 3.5-5.1 [facility] Comment on above: Performed By: #### L [id number] ####[facility] ([facility])[address] [place] [address] Sodium [Moles/Vol] 134 mmol/L Low 136-145 [facility] Comment on above: Performed By: #### L [id number] ####[facility] ([facility])[address] [place] [address] Urea nitrogen [Mass/Vol] 46 mg/dL High 7-25 [facility] Comment on above: Performed By: #### L [id number] ####[facility] ([facility])[address] [place] [address] UREA NITROGEN/CREATININE (MASS RATIO) IN SER/PLAS 30.1 Normal [facility] Comment on above: Performed By: #### L [id number] ####[facility] ([facility])[address] [place] [address] Anion gap [Moles/Vol] 11 mmol/L Normal 7-20 [facility] Comment on above: Performed By: #### L [id number] ####[facility] ([facility])[address] [place] [address] Calcium [Mass/Vol] 8.0 mg/dL Low 8.6-10.3 [facility] Comment on above: Performed By: #### L [id number] ####[facility] ([facility])[address] [place] [address] Chloride [Moles/Vol] 95 mmol/L Low 98-107 [facility] Comment on above: Performed By: #### L [id number] ####[facility] ([facility])[address] [place] [address] CO2 [Moles/Vol] 33 mmol/L High 21-31 [facility] Comment on above: Performed By: #### L [id number] ####[facility] ([facility])[address] [place] [address] Creatinine [Mass/Vol] 1.63 mg/dL High 0.70-1.30 [facility] Comment on above: Performed By: #### L [id number] ####[facility] ([facility])[address] [place] [address] GLOMERULAR FILTRATION RATE ML/MIN/1.73 SQ M.PREDICTED 47.3 mL/min/1.73m*2 Low >60.0 [facility] Comment on above: Result Comment: The [facility]???s estimated glomerular filtration rate (eGFR) will no longer include consideration of race in its calculation. The National Kidney Foundation???s eGFR Task Force developed new recommendations for the estimation of the glomerular filtration rate in the [place] They recommend immediate implementation of the new equation refit without the race variable in all laboratories because the calculation does not include race. In addition to not including race in the calculation and reporting, it included diversity in its development, and has acceptable performance characteristics and potential consequences that do not disproportionately affect any one group of individuals. Performed By: #### L [id number] ####[facility] ([facility])[address] [place] [address] Glucose [Mass/Vol] 196 mg/dL High 70-100 [facility] Comment on above: Performed By: #### L [id number] ####[facility] ([facility])[address] [place] [address] Potassium [Moles/Vol] 3.7 mmol/L Normal 3.5-5.1 [facility] Comment on above: Performed By: #### L [id number] ####[facility] ([facility])[address] [place] [address] Sodium [Moles/Vol] 135 mmol/L Low 136-145 [facility] Comment on above: Performed By: #### L [id number] ####[facility] ([facility])[address] [place] [address] Urea nitrogen [Mass/Vol] 54 mg/dL High 7-25 [facility] Comment on above: Performed By: #### L [id number] ####[facility] ([facility])[address] [place] [id number] UREA NITROGEN/CREATININE (MASS RATIO) IN SER/PLAS 33.1 Normal [facility] Comment on above: Performed By: #### L [id number] ####[facility] ([facility])[address] [place] [address] CBCon 08-31-2023 Erythrocyte distribution width (RBC) [Ratio] 16.2 % High 11.5-15.0 [facility] Comment on above: Performed By: #### L [id number] ####[facility] ([facility])[address] [place] [id number] ERYTHROCYTE MEAN CORPUSCULAR HEMOGLOBIN CONCENTRATION (G/DL) BY AUTOMATED 32.4 g/dL Normal 32.0-35.0 [facility] Comment on above: Performed By: #### L [id number] ####[facility] ([facility])[address] [place] [id number] Hematocrit (Bld) [Volume fraction] 36.1 % Low 39.0-55.0 [facility] Comment on above: Performed By: #### L [id number] ####[facility] ([facility])[address] [place] [id number] Hemoglobin (Bld) [Mass/Vol] 11.7 g/dL Low 13.0-17.0 [facility] Comment on above: Performed By: #### L [id number] ####[facility] ([facility])[address] [place] [id number] MCH (RBC) [Entitic mass] 25.9 pg Low 27.0-33.0 [facility] Comment on above: Performed By: #### L [id number] ####[facility] [place] [id number] MCV (RBC) [Entitic vol] 80.0 fL Low 82.0-98.0 [facility] Comment on above: Performed By: #### L [id number] ####[facility] [place] [id number] PLATELETS (10*3/UL) IN BLOOD AUTOMATED COUNT 202 10*3/uL Normal 150-400 [facility] Comment on above: Performed By: #### L [id number] ####[facility] ([facility])[address] [place] [address] RBC (Bld) [#/Vol] 4.51 10*6/uL Normal 4.20-5.70 [facility] Comment on above: Performed By: #### L [id number] ####[facility] ([facility])[address] [place] [address] WBC (Bld) [#/Vol] 6.51 10*3/uL Normal 4.00-10.60 [facility] Comment on above: Performed By: #### L [id number] ####[facility] ([facility])[address] [place] [address] MAGNESIUMon 08-31-2023 Magnesium [Mass/Vol] 2.3 mg/dL Normal 1.9-2.7 [facility] Comment on above: Performed By: #### L [id number] ####[facility] ([facility])[address] [place] [address] Magnesium [Mass/Vol] 2.1 mg/dL Normal 1.9-2.7 [facility] Comment on above: Performed By: #### L [id number] ####[facility] ([facility])[address] [place] [address] POCT GLUCOSE METER UNSOLICIT ED RESULTSon 08-31-2023 Glucose [Mass/Vol] 272 mg/dL High 70-105 [facility] Comment on above: Order Comment: Waive d Testing in the ED is performed under the ED CLIA certificate #[id number]. Result Comment: [email or web address] Performed By: #### L [id number] ####[facility] ([facility])[address] [place] [address] Glucose [Mass/Vol] 256 mg/dL High 70-105 [facility] Comment on above: Order Comment: Waive d Testing in the ED is performed under the ED CLIA certificate #[id number]. Result Comment: [email or web address] Performed By: #### L [id number] ####[facility] ([facility])[address] [place] [address] Glucose [Mass/Vol] 241 mg/dL High 70-105 [facility] Comment on above: Order Comment: Waive d Testing in the ED is performed under the ED CLIA certificate #[id number]. Result Comment: [email or web address] Performed By: #### L [id number] ####[facility] ([facility])[address] [place] [address] Glucose [Mass/Vol] 200 mg/dL High 70-105 [facility] Comment on above: Order Comment: Waive d Testing in the ED is performed under the ED CLIA certificate #[id number]. Result Comment: [email or web address] Performed By: #### L [id number] ####[facility] ([facility])[address] [place] [address] BASIC METABOLIC PANELon 04-2 Anion gap [Moles/Vol] 14 mmol/L Normal 7-20 [facility] Comment on above: Performed By: #### L [id number] ####[facility] ([facility])[address] [place] [address] Calcium [Mass/Vol] 8.4 mg/dL Low 8.6-10.3 [facility] Comment on above: Performed By: #### L [id number] ####[facility] ([facility])[address] [place] [address] Chloride [Moles/Vol] 98 mmol/L Normal 98-107 [facility] Comment on above: Performed By: #### L [id number] ####[facility] ([facility])[address] [place] [address] CO2 [Moles/Vol] 29 mmol/L Normal 21-31 [facility] Comment on above: Performed By: #### L [id number] ####[facility] ([facility])[address] [place] [address] Creatinine [Mass/Vol] 1.39 mg/dL High 0.70-1.30 [facility] Comment on above: Performed By: #### L [id number] ####[facility] ([facility])[address] [place] [id number] GLOMERULAR FILTRATION RATE ML/MIN/1.73 SQ M.PREDICTED 57.3 mL/min/1.73m*2 Low >60.0 [facility] Comment on above: Result Comment: [facility]???s estimated glomerular filtration rate (eGFR) will no longer include consideration of race in its calculation. The National Kidney Foundation???s eGFR Task Force developed new recommendations for the estimation of the glomerular filtration rate in the [place] They recommend immediate implementation of the new equation refit without the race variable in all laboratories because the calculation does not include race. In addition to not including race in the calculation and reporting, it included diversity in its development, and has acceptable performance characteristics and potential consequences that do not disproportionately affect any one group of individuals. Performed By: #### L [id number] ####[facility] ([facility])[address] [place] [address] Glucose [Mass/Vol] 173 mg/dL High 70-100 [facility] Comment on above: Performed By: #### L [id number] ####[facility] ([facility])[address] [place] [address] Potassium [Moles/Vol] 4.6 mmol/L Normal 3.5-5.1 [facility] Comment on above: Performed By: #### L [id number] ####[facility] ([facility])[address] [place] [address] Sodium [Moles/Vol] 136 mmol/L Normal 136-145 [facility] Comment on above: Performed By: #### L [id number] ####[facility] ([facility])[address] [place] [address] Urea nitrogen [Mass/Vol] 46 mg/dL High 7-25 [facility] Comment on above: Performed By: #### L [id number] ####[facility] ([facility])[address] [place] [address] UREA NITROGEN/CREATININE (MASS RATIO) IN SER/PLAS 33.1 Normal [facility] Comment on above: Performed By: #### L [id number] ####[facility] ([facility])[address] [place] [address] Anion gap [Moles/Vol] 14 mmol/L Normal 7-20 [facility] Comment on above: Performed By: #### L [id number] ####[facility] ([facility])[address] [place] [address] Calcium [Mass/Vol] 7.9 mg/dL Low 8.6-10.3 [facility] Comment on above: Performed By: #### L [id number] ####[facility] ([facility])[address] [place] [address] Chloride [Moles/Vol] 100 mmol/L Normal 98-107 [facility] Comment on above: Performed By: #### L [id number] ####[facility] ([facility])[address] [place] [address] CO2 [Moles/Vol] 27 mmol/L Normal 21-31 [facility] Comment on above: Performed By: #### L [id number] ####[facility] ([facility])[address] [place] [address] Creatinine [Mass/Vol] 1.27 mg/dL Normal 0.70-1.30 [facility] Comment on above: Performed By: #### L [id number] ####[facility] ([facility])[address] [place] [address] GLOMERULAR FILTRATION RATE ML/MIN/1.73 SQ M.PREDICTED 63.9 mL/min/1.73m*2 Normal >60.0 [facility] Comment on above: Result Comment: [facility]???s estimated glomerular filtration rate (eGFR) will no longer include consideration of race in its calculation. The National Kidney Foundation???s eGFR Task Force developed new recommendations for the estimation of the glomerular filtration rate in the [place] They recommend immediate implementation of the new equation refit without the race variable in all laboratories because the calculation does not include race. In addition to not including race in the calculation and reporting, it included diversity in its development, and has acceptable performance characteristics and potential consequences that do not disproportionately affect any one group of individuals. Performed By: #### L [id number] ####[facility] ([facility])[address] [place] [address] Glucose [Mass/Vol] 160 mg/dL High 70-100 [facility] Comment on above: Performed By: #### L [id number] ####[facility] ([facility])[address] [place] [address] Potassium [Moles/Vol] 3.8 mmol/L Normal 3.5-5.1 [facility] Comment on above: Performed By: #### L [id number] ####[facility] ([facility])[address] [place] [address] Sodium [Moles/Vol] 137 mmol/L Normal 136-145 [facility] Comment on above: Performed By: #### L [id number] ####[facility] ([facility])[address] [place] [address] Urea nitrogen [Mass/Vol] 49 mg/dL High 7-25 [facility] Comment on above: Performed By: #### L [id number] ####[facility] ([facility])[address] [place] [address] UREA NITROGEN/CREATININE (MASS RATIO) IN SER/PLAS 38.6 Normal [facility] Comment on above: Performed By: #### L [id number] ####[facility] ([facility])[address] [place] [address] MAGNESIUMon 08-30-2023 Magnesium [Mass/Vol] 2.3 mg/dL Normal 1.9-2.7 [facility] Comment on above: Performed By: #### L [id number] ####[facility] ([facility])[address] [place] [address] Magnesium [Mass/Vol] 2.3 mg/dL Normal 1.9-2.7 [facility] Comment on above: Performed By: #### L [id number] ####[facility] ([facility])[address] [place] [address] POCT GLUCOSE METER UNSOLICIT ED RESULTSon 08-30-2023 Glucose [Mass/Vol] 155 mg/dL High 70-105 [facility] Comment on above: Order Comment: Waive d Testing in the ED is performed under the ED CLIA certificate #[id number]. Result Comment: [email or web address] Performed By: #### L [id number] ####[facility] ([facility])[address] [place] [address] Glucose [Mass/Vol] 223 mg/dL High 70-105 [facility] Comment on above: Order Comment: Waive d Testing in the ED is performed under the ED CLIA certificate #[id number]. Result Comment: [email or web address] Performed By: #### L [id number] ####[facility] ([facility])[address] [place] [address] Glucose [Mass/Vol] 205 mg/dL High 70-105 [facility] Comment on above: Order Comment: Waive d Testing in the ED is performed under the ED CLIA certificate #[id number]. Result Comment: [email or web address] Performed By: #### L [id number] ####[facility] ([facility])[address] [place] [address] Glucose [Mass/Vol] 175 mg/dL High 70-105 [facility] Comment on above: Order Comment: Waive d Testing in the ED is performed under the ED CLIA certificate #[id number]. Result Comment: [email or web address] Performed By: #### L [id number] ####[facility] ([facility])[address] [place] [address] 30on 08-29-2023 30 [facility] 30 Normal [facility] 30 [facility] BASIC METABOLIC PANELon 04-2 0-2024 Anion gap [Moles/Vol] 11 mmol/L Normal 7-20 [facility] Comment on above: Performed By: #### L [id number] ####[facility] ([facility])[address] [place] [address] Calcium [Mass/Vol] 8.1 mg/dL Low 8.6-10.3 [facility] Comment on above: Performed By: #### L [id number] ####[facility] [place] [address] Chloride [Moles/Vol] 96 mmol/L Low 98-107 [facility] Comment on above: Performed By: #### L [id number] ####[facility] ([facility])[address] [place] [address] CO2 [Moles/Vol] 33 mmol/L High 21-31 [facility] Comment on above: Performed By: #### L [id number] ####[facility] ([facility])[address] [place] [address] Creatinine [Mass/Vol] 1.32 mg/dL High 0.70-1.30 [facility] Comment on above: Performed By: #### L [id number] ####[facility] ([facility])[address] [place] [address] GLOMERULAR FILTRATION RATE ML/MIN/1.73 SQ M.PREDICTED 61.0 mL/min/1.73m*2 Normal >60.0 [facility] Comment on above: Result Comment: The [facility]???s estimated glomerular filtration rate (eGFR) will no longer include consideration of race in its calculation. The National Kidney Foundation???s eGFR Task Force developed new recommendations for the estimation of the glomerular filtration rate in the [place] They recommend immediate implementation of the new equation refit without the race variable in all laboratories because the calculation does not include race. In addition to not including race in the calculation and reporting, it included diversity in its development, and has acceptable performance characteristics and potential consequences that do not disproportionately affect any one group of individuals. Performed By: #### L [id number] ####[facility] ([facility])[address] [place] [address] Glucose [Mass/Vol] 220 mg/dL High 70-100 [facility] Comment on above: Performed By: #### L [id number] ####[facility] ([facility])[address] [place] [address] Potassium [Moles/Vol] 3.8 mmol/L Normal 3.5-5.1 [facility] Comment on above: Performed By: #### L [id number] ####[facility] ([facility])[address] [place] [address] Sodium [Moles/Vol] 136 mmol/L Normal 136-145 [facility] Comment on above: Performed By: #### L [id number] ####[facility] ([facility])[address] [place] [address] Urea nitrogen [Mass/Vol] 40 mg/dL High 7-25 [facility] Comment on above: Performed By: #### L [id number] ####[facility] ([facility])[address] [place] [address] UREA NITROGEN/CREATININE (MASS RATIO) IN SER/PLAS 30.3 Normal [facility] Comment on above: Performed By: #### L [id number] ####[facility] ([facility])[address] [place] [address] Anion gap [Moles/Vol] 18 mmol/L Normal 7-20 [facility] Comment on above: Performed By: #### L [id number] ####[facility] ([facility])[address] [place] [address] Calcium [Mass/Vol] 7.8 mg/dL Low 8.6-10.3 [facility] Comment on above: Performed By: #### L [id number] ####[facility] ([facility])[address] [place] [address] Chloride [Moles/Vol] 98 mmol/L Normal 98-107 [facility] Comment on above: Performed By: #### L [id number] ####[facility] [place] [address] CO2 [Moles/Vol] 23 mmol/L Normal 21-31 [facility] Comment on above: Performed By: #### L [id number] ####[facility] ([facility])[address] [place] [address] Creatinine [Mass/Vol] 1.32 mg/dL High 0.70-1.30 [facility] Comment on above: Performed By: #### L [id number] ####[facility] ([facility])[address] [place] [address] GLOMERULAR FILTRATION RATE ML/MIN/1.73 SQ M.PREDICTED 61.0 mL/min/1.73m*2 Normal >60.0 [facility] Comment on above: Result Comment: The [facility]???s estimated glomerular filtration rate (eGFR) will no longer include consideration of race in its calculation. The National Kidney Foundation???s eGFR Task Force developed new recommendations for the estimation of the glomerular filtration rate in the [place] They recommend immediate implementation of the new equation refit without the race variable in all laboratories because the calculation does not include race. In addition to not including race in the calculation and reporting, it included diversity in its development, and has acceptable performance characteristics and potential consequences that do not disproportionately affect any one group of individuals. Performed By: #### L [id number] ####[facility] ([facility] [place] [address] Glucose [Mass/Vol] 168 mg/dL High 70-100 [facility] Comment on above: Performed By: #### L [id number] ####[facility] ([facility] [place] [address] Potassium [Moles/Vol] 4.5 mmol/L Normal 3.5-5.1 [facility] Comment on above: Performed By: #### L [id number] ####[facility] ([facility] [place] [address] Sodium [Moles/Vol] 134 mmol/L Low 136-145 [facility] Comment on above: Performed By: #### L [id number] ####[facility] [place] [id number] Urea nitrogen [Mass/Vol] 44 mg/dL High 7-25 [facility] Comment on above: Performed By: #### L [id number] ####[facility] [place] [id number] UREA NITROGEN/CREATININE (MASS RATIO) IN SER/PLAS 33.3 Normal [facility] Comment on above: Performed By: #### L [id number] ####[facility] [place] [id number] CBCon 08-29-2023 Erythrocyte distribution width (RBC) [Ratio] 16.0 % High 11.5-15.0 [facility] Comment on above: Performed By: #### L [id number] ####[facility] ([facility] [place] [address] ERYTHROCYTE MEAN CORPUSCULAR HEMOGLOBIN CONCENTRATION (G/DL) BY AUTOMATED 31.6 g/dL Low 32.0-35.0 [facility] Comment on above: Performed By: #### L [id number] ####[facility] ([facility] [place] [address] Hematocrit (Bld) [Volume fraction] 34.8 % Low 39.0-55.0 [facility] Comment on above: Performed By: #### L [id number] ####[facility] ([facility] [place] [id number] Hemoglobin (Bld) [Mass/Vol] 11.0 g/dL Low 13.0-17.0 [facility] Comment on above: Performed By: #### L [id number] ####[facility] ([facility])[address] [place] [id number] MCH (RBC) [Entitic mass] 25.4 pg Low 27.0-33.0 [facility] Comment on above: Performed By: #### L [id number] ####[facility] ([facility])[address] [place] [address] MCV (RBC) [Entitic vol] 80.4 fL Low 82.0-98.0 [facility] Comment on above: Performed By: #### L [id number] ####[facility] ([facility])[address] [place] [address] PLATELETS (10*3/UL) IN BLOOD AUTOMATED COUNT 180 10*3/uL Normal 150-400 [facility] Comment on above: Performed By: #### L [id number] ####[facility] ([facility])[address] [place] [address] RBC (Bld) [#/Vol] 4.33 10*6/uL Normal 4.20-5.70 [facility] Comment on above: Performed By: #### L [id number] ####[facility] ([facility])[address] [place] [address] WBC (Bld) [#/Vol] 8.22 10*3/uL Normal 4.00-10.60 [facility] Comment on above: Performed By: #### L [id number] ####[facility] ([facility])[address] [place] [address] MAGNESIUMon 08-29-2023 Magnesium [Mass/Vol] 2.0 mg/dL Normal 1.9-2.7 [facility] Comment on above: Performed By: #### L [id number] ####[facility] ([facility])[address] [place] [address] Magnesium [Mass/Vol] 2.1 mg/dL Normal 1.9-2.7 [facility] Comment on above: Performed By: #### L [id number] ####[facility] ([facility])[address] [place] [address] POCT GLUCOSE METER UNSOLICIT ED RESULTSon 08-29-2023 Glucose [Mass/Vol] 152 mg/dL High 70-105 [facility] Comment on above: Order Comment: Waive d Testing in the ED is performed under the ED CLIA certificate #[id number]. Result Comment: [email or web address] Performed By: #### L [id number] ####[facility] ([facility])[address] [place] [address] Glucose [Mass/Vol] 224 mg/dL High 70-105 [facility] Comment on above: Order Comment: Waive d Testing in the ED is performed under the ED CLIA certificate #[id number]. Result Comment: [email or web address] Performed By: #### L [id number] ####[facility] ([employer])[address] [place] [address] Glucose [Mass/Vol] 247 mg/dL High 70-105 [facility] Comment on above: Order Comment: Waive d Testing in the ED is performed under the ED CLIA certificate #[id number]. Result Comment: [email or web address] Performed By: #### L [id number] ####[facility] ([facility])[address] [place] [address] Glucose [Mass/Vol] 173 mg/dL High 70-105 [facility] Comment on above: Order Comment: Waive d Testing in the ED is performed under the ED CLIA certificate #[id number]. Result Comment: janice [email or web address] Performed By: #### L [id number] ####[facility] ([facility])[address] [place] [address] Glucose [Mass/Vol] 169 mg/dL High 70-105 [facility] Comment on above: Order Comment: Waive d Testing in the ED is performed under the ED CLIA certificate #[id number]. Result Comment: [email or web address] Performed By: #### L [id number] ####[facility] ([facility])[address] [place] [address] 30on 08-28-2023 30 Normal [facility] 30 [facility] 30 [facility] BASIC METABOLIC PANELon 08-09 Anion gap [Moles/Vol] 12 mmol/L Normal 7-20 [facility] Comment on above: Performed By: #### L [id number] ####[facility] [place] [address] Calcium [Mass/Vol] 8.5 mg/dL Low 8.6-10.3 [facility] Comment on above: Performed By: #### L [id number] ####[facility] ([facility])[address] [place] [address] Chloride [Moles/Vol] 97 mmol/L Low 98-107 [facility] Comment on above: Performed By: #### L [id number] ####[facility] ([facility])[address] [place] [address] CO2 [Moles/Vol] 32 mmol/L High 21-31 [facility] Comment on above: Performed By: #### L [id number] ####[facility] ([facility])[address] [place] [address] Creatinine [Mass/Vol] 1.15 mg/dL Normal 0.70-1.30 [facility] Comment on above: Performed By: #### L [id number] ####[facility] ([facility])[address] [place] [address] GLOMERULAR FILTRATION RATE ML/MIN/1.73 SQ M.PREDICTED 72.0 mL/min/1.73m*2 Normal >60.0 [facility] Comment on above: Result Comment: The [facility]???s estimated glomerular filtration rate (eGFR) will no longer include consideration of race in its calculation. The National Kidney Foundation???s eGFR Task Force developed new recommendations for the estimation of the glomerular filtration rate in the [place] They recommend immediate implementation of the new equation refit without the race variable in all laboratories because the calculation does not include race. In addition to not including race in the calculation and reporting, it included diversity in its development, and has acceptable performance characteristics and potential consequences that do not disproportionately affect any one group of individuals. Performed By: #### L [id number] ####[facility] ([facility] [place] [address] Glucose [Mass/Vol] 208 mg/dL High 70-100 [facility] Comment on above: Performed By: #### L [id number] ####[facility] ([facility])[address] [place] [address] Potassium [Moles/Vol] 4.2 mmol/L Normal 3.5-5.1 [facility] Comment on above: Performed By: #### L [id number] ####[facility] ([facility])[address] [place] [address] Sodium [Moles/Vol] 137 mmol/L Normal 136-145 [facility] Comment on above: Performed By: #### L [id number] ####[facility] ([facility])[address] [place] [address] Urea nitrogen [Mass/Vol] 31 mg/dL High 7-25 [facility] Comment on above: Performed By: #### L [id number] ####[facility] ([facility])[address] [place] [address] UREA NITROGEN/CREATININE (MASS RATIO) IN SER/PLAS 27.0 Normal [facility] Comment on above: Performed By: #### L [id number] ####[facility] ([facility])[address] [place] [address] Anion gap [Moles/Vol] 13 mmol/L Normal 7-20 [facility] Comment on above: Performed By: #### L [id number] ####[facility] ([facility])[address] [place] [address] Calcium [Mass/Vol] 8.3 mg/dL Low 8.6-10.3 [facility] Comment on above: Performed By: #### L [id number] ####[facility] ([facility] [place] [address] Chloride [Moles/Vol] 98 mmol/L Normal 98-107 [facility] Comment on above: Performed By: #### L [id number] ####[facility] ([facility] [place] [address] CO2 [Moles/Vol] 30 mmol/L Normal 21-31 [facility] Comment on above: Performed By: #### L [id number] ####[facility] ([facility] [place] [address] Creatinine [Mass/Vol] 1.23 mg/dL Normal 0.70-1.30 [facility] Comment on above: Performed By: #### L [id number] ####[facility] ([facility])[address] [place] [address] GLOMERULAR FILTRATION RATE ML/MIN/1.73 SQ M.PREDICTED 66.4 mL/min/1.73m*2 Normal >60.0 [facility] Comment on above: Result Comment: The [facility]???s estimated glomerular filtration rate (eGFR) will no longer include consideration of race in its calculation. The National Kidney Foundation???s eGFR Task Force developed new recommendations for the estimation of the glomerular filtration rate in the [place] They recommend immediate implementation of the new equation refit without the race variable in all laboratories because the calculation does not include race. In addition to not including race in the calculation and reporting, it included diversity in its development, and has acceptable performance characteristics and potential consequences that do not disproportionately affect any one group of individuals. Performed By: #### L [id number] ####[facility] ([facility] [place] [address] Glucose [Mass/Vol] 163 mg/dL High 70-100 [facility] Comment on above: Performed By: #### L [id number] ####[facility] ([facility])[address] [place] [address] Potassium [Moles/Vol] 3.7 mmol/L Normal 3.5-5.1 [facility] Comment on above: Performed By: #### L [id number] ####[facility] [place] [address] Sodium [Moles/Vol] 137 mmol/L Normal 136-145 [facility] Comment on above: Performed By: #### L [id number] ####[facility] ([facility])[address] [place] [address] Urea nitrogen [Mass/Vol] 31 mg/dL High 7-25 [facility] Comment on above: Performed By: #### L [id number] ####[facility] ([facility])[address] [place] [address] UREA NITROGEN/CREATININE (MASS RATIO) IN SER/PLAS 25.2 Normal [facility] Comment on above: Performed By: #### L [id number] ####[facility] ([facility])[address] [place] [address] HEMOGLOBIN A1Con 08-28-2023 Glucose [Mass/Vol] 183 mg/dL Normal [facility] Comment on above: Order Comment: NO VA RIANT Performed By: #### L [id number] ####[facility] ([facility])[address] [place] [address] HbA1c (Bld) [Mass fraction] 8.0 % High 4.0-6.0 [facility] Comment on above: Order Comment: NO VA RIANT Performed By: #### L [id number] ####[facility] ([facility])[address] [place] [address] MAGNESIUMon 08-28-2023 Magnesium [Mass/Vol] 1.8 mg/dL Low 1.9-2.7 [facility] Comment on above: Performed By: #### L [id number] ####[facility] ([facility])[address] [place] [address] Magnesium [Mass/Vol] 1.8 mg/dL Low 1.9-2.7 [facility] Comment on above: Performed By: #### L [id number] ####[facility] ([facility])[address] [place] [address] POCT GLUCOSE METER UNSOLICIT ED RESULTSon 08-28-2023 Glucose [Mass/Vol] 210 mg/dL High 70-105 [facility] Comment on above: Order Comment: Waive d Testing in the ED is performed under the ED CLIA certificate #[id number]. Result Comment: [email or web address] Performed By: #### L [id number] ####[facility] [place] [address] Glucose [Mass/Vol] 172 mg/dL High 70-105 [facility] Comment on above: Order Comment: Waive d Testing in the ED is performed under the ED CLIA certificate #[id number]. Result Comment: [email or web address] Performed By: #### L [id number] ####[facility] ([facility])[address] [facility] [place] [address] Glucose [Mass/Vol] 227 mg/dL High 70-105 [facility] Comment on above: Order Comment: Waive d Testing in the ED is performed under the ED CLIA certificate #[id number]. Result Comment: [email or web address] Performed By: #### L [id number] ####[facility] ([facility])[address] [facility] [place] [address] Glucose [Mass/Vol] 178 mg/dL High 70-105 [facility] Comment on above: Order Comment: Waive d Testing in the ED is performed under the ED CLIA certificate #[id number]. Result Comment: [email or web address] Performed By: #### L [id number] ####[facility] ([facility])[address] [place] [address] 30on 08-27-2023 30 Normal [facility] 30 Normal [facility] 30 Normal [facility] B-TYPE NATRIURETIC PEPTIDEon 08-27-2023 Natriuretic peptide B (Bld) [Mass/Vol] 73 pg/mL Normal 0-100 [facility] Comment on above: Performed By: #### L [id number] ####[facility] ([facility])[address] [place] [address] BASIC METABOLIC PANELon 08-09 Anion gap [Moles/Vol] 16 mmol/L Normal 7-20 [facility] Comment on above: Performed By: #### L [id number] ####[facility] [place] [address] Calcium [Mass/Vol] 9.1 mg/dL Normal 8.6-10.3 [facility] Comment on above: Performed By: #### L [id number] ####[facility] ([facility] [place] [address] Chloride [Moles/Vol] 102 mmol/L Normal 98-107 [facility] Comment on above: Performed By: #### L [id number] ####[facility] ([facility])[address] [place] [address] CO2 [Moles/Vol] 21 mmol/L Normal 21-31 [facility] Comment on above: Performed By: #### L [id number] ####[facility] ([facility])[address] [place] [address] Creatinine [Mass/Vol] 0.76 mg/dL Normal 0.70-1.30 [facility] Comment on above: Performed By: #### L [id number] ####[facility] ([facility])[address] [place] [address] GLOMERULAR FILTRATION RATE ML/MIN/1.73 SQ M.PREDICTED 101.6 mL/min/1.73m*2 Normal >60.0 [facility] Comment on above: Result Comment: The [facility]???s estimated glomerular filtration rate (eGFR) will no longer include consideration of race in its calculation. The National Kidney Foundation???s eGFR Task Force developed new recommendations for the estimation of the glomerular filtration rate in the [place] They recommend immediate implementation of the new equation refit without the race variable in all laboratories because the calculation does not include race. In addition to not including race in the calculation and reporting, it included diversity in its development, and has acceptable performance characteristics and potential consequences that do not disproportionately affect any one group of individuals. Performed By: #### L [id number] ####[facility] [place] [address] Glucose [Mass/Vol] 232 mg/dL High 70-100 [facility] Comment on above: Performed By: #### L [id number] ####[facility] ([facility])[address] [place] [address] Potassium [Moles/Vol] 4.1 mmol/L Normal 3.5-5.1 [facility] Comment on above: Performed By: #### L [id number] ####[facility] ([facility])[address] [place] [address] Sodium [Moles/Vol] 135 mmol/L Low 136-145 [facility] Comment on above: Performed By: #### L [id number] ####[facility] ([facility])[address] [place] [address] Urea nitrogen [Mass/Vol] 18 mg/dL Normal 7-25 [facility] Comment on above: Performed By: #### L [id number] ####[facility] ([facility])[address] [place] [address] UREA NITROGEN/CREATININE (MASS RATIO) IN SER/PLAS 23.7 Normal [facility] Comment on above: Performed By: #### L [id number] ####[facility] ([facility])[address] [place] [address] CBC WITH AUTO DIFFERENTIALon 08-27-2023 Basophils (Bld) [#/Vol] 0.04 10*3/uL Normal 0.00-0.20 [facility] Comment on above: Performed By: #### L [id number] ####[facility] ([facility])[address] [place] [address] Basophils/100 WBC (Bld) 0.8 % Normal 0.0-1.0 [facility] Comment on above: Performed By: #### L [id number] ####[facility] ([facility])[address] [place] [address] Eosinophils (Bld) [#/Vol] 0.16 10*3/uL Normal 0.00-0.50 [facility] Comment on above: Performed By: #### L [id number] ####[facility] [place] [id number] Eosinophils/100 WBC (Bld) 3.1 % Normal 0.0-6.0 [facility] Comment on above: Performed By: #### L [id number] ####[facility] ([facility])[address] [place] [address] Erythrocyte distribution width (RBC) [Ratio] 15.9 % High 11.5-15.0 [facility] Comment on above: Performed By: #### L [id number] ####[facility] ([facility])[address] [place] [address] ERYTHROCYTE MEAN CORPUSCULAR HEMOGLOBIN CONCENTRATION (G/DL) BY AUTOMATED 30.9 g/dL Low 32.0-35.0 [facility] Comment on above: Performed By: #### L [id number] ####[facility] ([facility])[address] [place] [address] Hematocrit (Bld) [Volume fraction] 32.4 % Low 39.0-55.0 [facility] Comment on above: Performed By: #### L [id number] ####[facility] ([facility])[address] [place] [address] Hemoglobin (Bld) [Mass/Vol] 10.0 g/dL Low 13.0-17.0 [facility] Comment on above: Performed By: #### L [id number] ####[facility] [place] [address] Immature granulocytes (Bld) [#/Vol] 0.00 10*3/uL Normal 0.00-0.20 [facility] Comment on above: Performed By: #### L [id number] ####[facility] [place] [address] Immature granulocytes/100 WBC (Bld) 0.0 % Normal 0.0-1.0 [facility] Comment on above: Performed By: #### L [id number] ####[facility] ([facility])[address] [place] [address] Lymphocytes (Bld) [#/Vol] 1.71 10*3/uL Normal 1.20-4.00 [facility] Comment on above: Performed By: #### L [id number] ####[facility] (BEAKER)[address] [place] [address] Lymphocytes/100 WBC (Bld) 33.5 % Normal 20.0-45.0 [facility] Comment on above: Performed By: #### L [id number] ####[facility] ([facility])[address] [place] [address] MCH (RBC) [Entitic mass] 25.1 pg Low 27.0-33.0 [facility] Comment on above: Performed By: #### L [id number] ####[facility] ([facility])[address] [place] [address] MCV (RBC) [Entitic vol] 81.2 fL Low 82.0-98.0 [facility] Comment on above: Performed By: #### L [id number] ####[facility] ([facility])[address] [place] [address] Monocytes (Bld) [#/Vol] 0.53 10*3/uL Normal 0.10-1.00 [facility] Comment on above: Performed By: #### L [id number] ####[facility] ([facility])[address] [place] [address] Monocytes/100 WBC (Bld) 10.4 % Normal 5.0-12.0 [facility] Comment on above: Performed By: #### L [id number] ####[facility] ([facility])[address] [place] [address] Neutrophils (Bld) [#/Vol] 2.67 10*3/uL Normal 1.60-7.60 [facility] Comment on above: Performed By: #### L [id number] ####[facility] ([facility])[address] [place] [address] Neutrophils/100 WBC (Bld) 52.2 % Normal 40.0-72.0 [facility] Comment on above: Performed By: #### L [id number] ####[facility] ([facility])[address] [address] NRBC (PER 100 WBCS) BY AUTOMATED COUNT 0.0 % Normal 0 [facility] Comment on above: Performed By: #### L [id number] ####[facility] ([facility])[address] [place] [id number] PLATELETS (10*3/UL) IN BLOOD AUTOMATED COUNT 173 10*3/uL Normal 150-400 [facility] Comment on above: Performed By: #### L [id number] ####[facility] ([facility])[address] [place] [id number] RBC (Bld) [#/Vol] 3.99 10*6/uL Low 4.20-5.70 [facility] Comment on above: Performed By: #### L [id number] ####[facility] ([facility])[address] [address] WBC (Bld) [#/Vol] 5.11 10*3/uL Normal 4.00-10.60 [facility] Comment on above: Performed By: #### L [id number] ####[facility] ([facility])[address] [place] [id number] COMPREHENSIVE METABOLIC PANE Brayan 08-27-2023 Albumin [Mass/Vol] 3.0 g/dL Low 3.5-5.7 [facility] Comment on above: Performed By: #### L [id number] ####[facility] [place] [address] ALP [Catalytic activity/Vol] 55 U/L Normal 34-104 [facility] Comment on above: Performed By: #### L [id number] ####[facility] ([facility])[address] [place] [address] ALT [Catalytic activity/Vol] 8 U/L Normal 7-52 [facility] Comment on above: Performed By: #### L [id number] ####[facility] ([facility])[address] [place] [address] Anion gap [Moles/Vol] 11 mmol/L Normal 7-20 [facility] Comment on above: Performed By: #### L [id number] ####[facility] ([facility])[address] [place] [address] AST [Catalytic activity/Vol] 11 U/L Low 13-39 [facility] Comment on above: Performed By: #### L [id number] ####[facility] ([facility])[address] [place] [address] Bilirubin [Mass/Vol] 0.3 mg/dL Normal 0.3-1.0 [facility] Comment on above: Performed By: #### L [id number] ####[facility] ([facility])[address] [place] [address] Calcium [Mass/Vol] 8.2 mg/dL Low 8.6-10.3 [facility] Comment on above: Performed By: #### L [id number] ####[facility] [place] [address] Chloride [Moles/Vol] 104 mmol/L Normal 98-107 [facility] Comment on above: Performed By: #### L [id number] ####[facility] ([facility])[address] [place] [address] CO2 [Moles/Vol] 27 mmol/L Normal 21-31 [facility] Comment on above: Performed By: #### L [id number] ####[facility] ([facility])[address] [place] [address] Creatinine [Mass/Vol] 0.71 mg/dL Normal 0.70-1.30 [facility] Comment on above: Performed By: #### L [id number] ####[facility] ([facility])[address] [place] [address] GLOMERULAR FILTRATION RATE ML/MIN/1.73 SQ M.PREDICTED 103.7 mL/min/1.73m*2 Normal >60.0 [facility] Comment on above: Result Comment: The [facility]???s estimated glomerular filtration rate (eGFR) will no longer include consideration of race in its calculation. The National Kidney Foundation???s eGFR Task Force developed new recommendations for the estimation of the glomerular filtration rate in the [place] They recommend immediate implementation of the new equation refit without the race variable in all laboratories because the calculation does not include race. In addition to not including race in the calculation and reporting, it included diversity in its development, and has acceptable performance characteristics and potential consequences that do not disproportionately affect any one group of individuals. Performed By: #### L [id number] ####[facility] ([facility])[address] [place] [address] Glucose [Mass/Vol] 292 mg/dL High 70-100 [facility] Comment on above: Performed By: #### L [id number] ####[facility] ([facility])[address] [place] [address] Potassium [Moles/Vol] 4.0 mmol/L Normal 3.5-5.1 [facility] Comment on above: Performed By: #### L [id number] ####[facility] ([facility])[address] [place] [address] Protein [Mass/Vol] 6.2 g/dL Normal 6.0-8.3 [facility] Comment on above: Performed By: #### L [id number] ####[facility] ([facility])[address] [place] [address] Sodium [Moles/Vol] 138 mmol/L Normal 136-145 [facility] Comment on above: Performed By: #### L [id number] ####[facility] ([facility])[address] [place] [address] Urea nitrogen [Mass/Vol] 18 mg/dL Normal 7-25 [facility] Comment on above: Performed By: #### L [id number] ####[facility] ([facility])[address] [place] [address] UREA NITROGEN/CREATININE (MASS RATIO) IN SER/PLAS 25.4 [facility] Comment on above: Performed By: #### L [id number] ####[facility] ([facility])[address] [place] [address] CONSULTon 08-27-2023 CONSULT Normal [facility] CONSULT Normal [facility] CONSULT [facility] CONSULT [facility] HPon 08-27-2023 HP [facility] MAGNESIUMon 08-27-2023 Magnesium [Mass/Vol] 1.7 mg/dL Low 1.9-2.7 [facility] Comment on above: Performed By: #### L [id number] ####[facility] ([facility])[address] [place] [address] Magnesium [Mass/Vol] 1.6 mg/dL Low 1.9-2.7 [facility] Comment on above: Performed By: #### L [id number] ####[facility] ([facility])[address] [place] [address] POCT GLUCOSE METER UNSOLICIT ED RESULTSon 08-27-2023 Glucose [Mass/Vol] 328 mg/dL High 70-105 [facility] Comment on above: Order Comment: Waive d Testing in the ED is performed under the ED CLIA certificate #[id number]. Result Comment: [email or web address] Performed By: #### L [id number] ####[facility] ([facility])[address] [place] [address] Glucose [Mass/Vol] 236 mg/dL High 70-105 [facility] Comment on above: Order Comment: Waive d Testing in the ED is performed under the ED CLIA certificate #[id number]. Result Comment: [email or web address] Performed By: #### L [id number] ####[facility] ([facility])[address] [place] [address] Glucose [Mass/Vol] 224 mg/dL High 70-105 [facility] Comment on above: Order Comment: Waive d Testing in the ED is performed under the ED CLIA certificate #[id number]. Result Comment: [email or web address] Performed By: #### L [id number] ####[facility] [place] [address] Glucose [Mass/Vol] 263 mg/dL High 70-105 [facility] Comment on above: Order Comment: Waive d Testing in the ED is performed under the ED CLIA certificate #[id number]. Result Comment: [email or web address] Performed By: #### L [id number] ####[facility] ([facility])[address] [facility] [place] [address] Glucose [Mass/Vol] 232 mg/dL High 70-105 [facility] Comment on above: Order Comment: Waive d Testing in the ED is performed under the ED CLIA certificate #[id number]. Result Comment: [email or web address] Performed By: #### L [id number] ####[facility] ([facility])[address] [place] [address] TROPONIN Ion 08-27-2023 Troponin I.cardiac [Mass/Vol] 0.01 ng/mL Normal 0.00-0.04 [facility] Comment on above: Performed By: #### L [id number] ####[facility] ([facility])[address] [facility] [place] [address] VALPROIC ACID LEVEL, TOTALon 08-27-2023 VALPROATE (UG/ML) IN SER/PLAS 19 ug/mL Low 60-100 [facility] Comment on above: Performed By: #### L [id number] ####[facility] ([facility])[address] [facility] [place] [address] Estimated glomerular filtrat ion rate (GFR) non- Americanon 08-05-2023 GFR/1.73 sq M.predicted among non-blacks MDRD (S/P/Bld) [Vol rate/Area] mL/min/{1.73_m2} >=60 [facility] - Chemistry and C hemistry - challengeon 08-05-2023 Calcium [Mass/Vol] 9.3 mg/dL 8.5-10.1 [facility] Chloride [Moles/Vol] 98 mmol/L 98-107 [facility] CO2 [Moles/Vol] 32.2 mmol/L 21.0-32.0 [facility] Creatinine [Mass/Vol] 1.18 mg/dL 0.70-1.30 [facility] GFR/1.73 sq M.predicted MDRD (S/P/Bld) [Vol rate/Area] mL/min/{1.73_m2} >=60 [facility] Glucose [Mass/Vol] 154 mg/dL 74-106 [facility] Potassium [Moles/Vol] 4.0 mmol/L 3.5-5.1 [facility] Sodium [Moles/Vol] 139 mmol/L 136-145 [facility] Urea nitrogen [Mass/Vol] 34.0 mg/dL 7.0-18.0 [facility] Urea nitrogen/Creatinine [Mass ratio] 28.8 mg/mg [facility] Serum or plasma anion gap de terminationon 08-05-2023 Anion gap [Moles/Vol] 12.8 mmol/L [facility] Orders Onlyon 08-03-2023 Orders Only [id number] Matt Wolff 1960 M Date Provider Department Center 08/03/2023 LYNETTE NOE [facility] [place] Count Family History Family history unknown: Yes Normal [facility] 29on 07-30-2023 29 Addended by: HOUSTON RIDDLE on: 07/30/2023 04:01 PM Modules accepted: Orders Normal [facility] Follow-Upon 07-30-2023 Follow-Up Normal [facility] TISSUE CULTUREon 07-30-2023 cefTRIAXone [Susc] <=1 [facility] Comment on above: Performed By: #### L [id number] ####[facility] ([facility]ER)[address] [place] [address] Ciprofloxacin [Susc] >2 [facility] Comment on above: Performed By: #### L [id number] ####[facility] ([facility])[address] [place] [address] Gentamicin [Susc] <=2 Susceptible [facility] Comment on above: Performed By: #### L [id number] ####[facility] ([facility])[address] [place] [address] Piperacillin+Tazobact am [Susc] <=2/4 Susceptible [facility] Comment on above: Performed By: #### L [id number] ####[facility] ([facility])[address] [place] [address] Tobramycin [Susc] <=2 Susceptible [facility] Comment on above: Performed By: #### L [id number] ####[facility] ([facility])[address] [place] [address] Trimethoprim+Sulfamet hoxazole [Susc] >2/38 Resistant [facility] Comment on above: Performed By: #### L [id number] ####[facility] ([facility])[address] [place] [address] Follow-Upon 07-09-2023 Follow-Up [facility] 29on 07-02-2023 29 Addended by: YULIANA ARANGO on: 07/03/2023 10:14 AM Modules accepted: Orders Normal [facility] Follow-Upon 07-02-2023 Follow-Up [facility] Orders Onlyon 07-02-2023 Orders Only [id number] Matt Wolff 1960 M Date Provider Department Center 07/02/2023 LYNETTE NOE [facility]AS [place] Count Family History Family history unknown: Yes Normal [facility] Follow-Upon 06-24-2023 Follow-Up [facility] 36on 06-19-2023 36 Normal [facility] Orders Onlyon 06-19-2023 Orders Only [id number] Matt Wolff 1960 M Date Provider Department Center 06/19/2023 [id number]-MEGUBZEMORY BURNS [facility] CARD [place] Count Family History Family history unknown: Yes Normal [facility] Telephoneon 06-19-2023 Telephone [id number] Matt Wolff 1960 M Date Provider Department Center 06/19/2023 [id number]-JYCCKSEMORY BURNS [facility] [place] [facility] Family History Family history unknown: Yes Normal [facility] 36on 06-18-2023 36 Unable to reach , VM msg left for call back Normal [facility] 36 Unable to reach pt, VM msg left for pt call back Normal [facility] Documentationon 06-18-2023 Documentation [id number] Matt Wolff 1960 M Date Provider Department Center 06/18/2023 [id number], SOCIAL [facility]IAL [place] [facility] Family History Family history unknown: Yes Normal [facility] Documentation Normal [facility] Telephoneon 06-18-2023 Telephone Normal [facility] 30on 06-17-2023 30 Normal [facility] 30 Normal [facility] BASIC METABOLIC PANELon Anion gap [Moles/Vol] 11 mmol/L Normal 7-20 [facility] Comment on above: Performed By: #### L [id number] ####[facility] ([facility]ER)[address] [place] [address] Calcium [Mass/Vol] 8.7 mg/dL Normal 8.6-10.3 [facility] Comment on above: Performed By: #### L [id number] ####[facility] ([facility])[address] [facility] [place] [address] Chloride [Moles/Vol] 100 mmol/L Normal 98-107 [facility] Comment on above: Performed By: #### L [id number] ####[facility] ([facility]ER)[address] [facility] [place] [address] CO2 [Moles/Vol] 28 mmol/L Normal 21-31 [facility] Comment on above: Performed By: #### L [id number] ####[facility] ([facility])[address] [place] [address] Creatinine [Mass/Vol] 1.20 mg/dL Normal 0.70-1.30 [facility] Comment on above: Performed By: #### L [id number] ####[facility] ([facility])[address] [place] [address] GLOMERULAR FILTRATION RATE ML/MIN/1.73 SQ M.PREDICTED 68.8 mL/min/1.73m*2 Normal >60.0 [facility] Comment on above: Result Comment: The [facility]???s estimated glomerular filtration rate (eGFR) will no longer include consideration of race in its calculation. The National Kidney Foundation???s eGFR Task Force developed new recommendations for the estimation of the glomerular filtration rate in the [place] They recommend immediate implementation of the new equation refit without the race variable in all laboratories because the calculation does not include race. In addition to not including race in the calculation and reporting, it included diversity in its development, and has acceptable performance characteristics and potential consequences that do not disproportionately affect any one group of individuals. Performed By: #### L [id number] ####[facility] ([facility])[address] [place] [address] Glucose [Mass/Vol] 155 mg/dL High 70-100 [facility] Comment on above: Performed By: #### L [id number] ####[facility] ([facility])[address] [place] [address] Potassium [Moles/Vol] 4.3 mmol/L Normal 3.5-5.1 [facility] Comment on above: Performed By: #### L [id number] ####[facility] ([facility])[address] [place] [address] Sodium [Moles/Vol] 135 mmol/L Low 136-145 [facility] Comment on above: Performed By: #### L [id number] ####[facility] ([facility])[address] [place] [id number] Urea nitrogen [Mass/Vol] 53 mg/dL High 7-25 [facility] Comment on above: Performed By: #### L [id number] ####[facility] ([facility])[address] [address] UREA NITROGEN/CREATININE (MASS RATIO) IN SER/PLAS 44.2 Normal [facility] Comment on above: Performed By: #### L [id number] ####[facility] ([facility])[address] [place] [id number] CBC WITH AUTO DIFFERENTIALon 06-17-2023 Basophils (Bld) [#/Vol] 0.06 10*3/uL Normal 0.00-0.20 [facility] Comment on above: Performed By: #### L [id number] ####[facility] ([facility])[address] [place] [address] Basophils/100 WBC (Bld) 0.7 % Normal 0.0-1.0 [facility] Comment on above: Performed By: #### L [id number] ####[facility] ([facility])[address] [place] [id number] Eosinophils (Bld) [#/Vol] 0.20 10*3/uL Normal 0.00-0.50 [facility] Comment on above: Performed By: #### L [id number] ####[facility] ([facility])[address] [place] [id number] Eosinophils/100 WBC (Bld) 2.4 % Normal 0.0-6.0 [facility] Comment on above: Performed By: #### L [id number] ####[facility] [place] [address] Erythrocyte distribution width (RBC) [Ratio] 16.7 % High 11.5-15.0 [facility] Comment on above: Performed By: #### L [id number] ####[facility] [place] [id number] ERYTHROCYTE MEAN CORPUSCULAR HEMOGLOBIN CONCENTRATION (G/DL) BY AUTOMATED 30.8 g/dL Low 32.0-35.0 [facility] Comment on above: Performed By: #### L [id number] ####[facility] ([facility]AKER)[address] [place] [id number] Hematocrit (Bld) [Volume fraction] 37.3 % Low 39.0-55.0 [facility] Comment on above: Performed By: #### L [id number] ####[facility] ([facility])[address] [place] [address] Hemoglobin (Bld) [Mass/Vol] 11.5 g/dL Low 13.0-17.0 [facility] Comment on above: Performed By: #### L [id number] ####[facility] (BE[facility])[address] [place] [address] Immature granulocytes (Bld) [#/Vol] 0.02 10*3/uL Normal 0.00-0.20 [facility] Comment on above: Performed By: #### L [id number] ####[facility] (BEAKER)[address] [place] [address] Immature granulocytes/100 WBC (Bld) 0.2 % Normal 0.0-1.0 [facility] Comment on above: Performed By: #### L [id number] ####[facility] ([facility])[address] [place] [address] Lymphocytes (Bld) [#/Vol] 2.46 10*3/uL Normal 1.20-4.00 [facility] Comment on above: Performed By: #### L [id number] ####[facility] ([facility])[address] [place] [address] Lymphocytes/100 WBC (Bld) 29.9 % Normal 20.0-45.0 [facility] Comment on above: Performed By: #### L [id number] ####[facility] ([facility])[address] [place] [address] MCH (RBC) [Entitic mass] 24.0 pg Low 27.0-33.0 [facility] Comment on above: Performed By: #### L [id number] ####[facility] [place] [address] MCV (RBC) [Entitic vol] 77.7 fL Low 82.0-98.0 [facility] Comment on above: Performed By: #### L [id number] ####[facility] [place] [address] Monocytes (Bld) [#/Vol] 0.88 10*3/uL Normal 0.10-1.00 [facility] Comment on above: Performed By: #### L [id number] ####[facility] ([facility])[address] [place] [address] Monocytes/100 WBC (Bld) 10.7 % Normal 5.0-12.0 [facility] Comment on above: Performed By: #### L [id number] ####[facility] ([facility])[address] [place] [address] Neutrophils (Bld) [#/Vol] 4.60 10*3/uL Normal 1.60-7.60 [facility] Comment on above: Performed By: #### L [id number] ####[facility] ([facility])[address] [place] [address] Neutrophils/100 WBC (Bld) 56.1 % Normal 40.0-72.0 [facility] Comment on above: Performed By: #### L [id number] ####[facility] [place] [address] NRBC (PER 100 WBCS) BY AUTOMATED COUNT 0.0 % Normal 0 [facility] Comment on above: Performed By: #### L [id number] ####[facility] [place] [address] PLATELETS (10*3/UL) IN BLOOD AUTOMATED COUNT 281 10*3/uL Normal 150-400 [facility] Comment on above: Performed By: #### L [id number] ####[facility] [place] [address] RBC (Bld) [#/Vol] 4.80 10*6/uL Normal 4.20-5.70 [facility] Comment on above: Performed By: #### L [id number] ####[facility] ([facility])[address] [place] [address] WBC (Bld) [#/Vol] 8.22 10*3/uL Normal 4.00-10.60 [facility] Comment on above: Performed By: #### L [id number] ####[facility] ([facility])[address] [place] [address] DSon 06-17-2023 DS Normal [facility] MAGNESIUMon 06-17-2023 Magnesium [Mass/Vol] 2.4 mg/dL Normal 1.9-2.7 [facility] Comment on above: Performed By: #### L [id number] ####[facility] ([facility])[address] [place] [address] Orders Onlyon 06-17-2023 Orders Only [id number] Matt Wolff 1960 Date Provider Department [place] 06/17/2023 JACOB WALL [facility] Family History Family history unknown: Yes Normal [facility] POCT GLUCOSE METER UNSOLICIT ED RESULTSon 06-17-2023 Glucose [Mass/Vol] 194 mg/dL High 70-105 [facility] Comment on above: Order Comment: Waive d Testing in the ED is performed under the ED CLIA certificate #[id number]. Result Comment: [email or web address] Performed By: #### L [id number] ####[facility] ([facility])[address] [place] [address] Glucose [Mass/Vol] 178 mg/dL High 70-105 [facility] Comment on above: Order Comment: Waive d Testing in the ED is performed under the ED CLIA certificate #[id number]. Result Comment: [email or web address] Performed By: #### L [id number] ####[facility] (BEAKER)[address] [place] [address] 30on 06-16-2023 30 Normal [facility] BASIC METABOLIC PANELon Anion gap [Moles/Vol] 10 mmol/L Normal 7-20 [facility] Comment on above: Performed By: #### L [id number] ####[facility] ([facility])[address] [place] [address] Calcium [Mass/Vol] 8.4 mg/dL Low 8.6-10.3 [facility] Comment on above: Performed By: #### L [id number] ####[facility] ([facility])[address] [place] [address] Chloride [Moles/Vol] 101 mmol/L Normal 98-107 [facility] Comment on above: Performed By: #### L [id number] ####[facility] ([facility])[address] [place] [address] CO2 [Moles/Vol] 28 mmol/L Normal 21-31 [facility] Comment on above: Performed By: #### L [id number] ####[facility] ([facility])[address] [place] [address] Creatinine [Mass/Vol] 1.14 mg/dL Normal 0.70-1.30 [facility] Comment on above: Performed By: #### L [id number] ####[facility] ([facility])[address] [facility] [place] [address] GLOMERULAR FILTRATION RATE ML/MIN/1.73 SQ M.PREDICTED 73.2 mL/min/1.73m*2 Normal >60.0 [facility] Comment on above: Result Comment: The [facility]???s estimated glomerular filtration rate (eGFR) will no longer include consideration of race in its calculation. The National Kidney Foundation???s eGFR Task Force developed new recommendations for the estimation of the glomerular filtration rate in the [place] They recommend immediate implementation of the new equation refit without the race variable in all laboratories because the calculation does not include race. In addition to not including race in the calculation and reporting, it included diversity in its development, and has acceptable performance characteristics and potential consequences that do not disproportionately affect any one group of individuals. Performed By: #### L [id number] ####[facility] ([facility])[address] [place] [address] Glucose [Mass/Vol] 171 mg/dL High 70-100 [facility] Comment on above: Performed By: #### L [id number] ####[facility] ([facility])[address] [place] [address] Potassium [Moles/Vol] 3.9 mmol/L Normal 3.5-5.1 [facility] Comment on above: Performed By: #### L [id number] ####[facility] ([facility])[address] [place] [address] Sodium [Moles/Vol] 135 mmol/L Low 136-145 [facility] Comment on above: Performed By: #### L [id number] ####[facility] ([facility])[address] [place] [address] Urea nitrogen [Mass/Vol] 46 mg/dL High 7-25 [facility] Comment on above: Performed By: #### L [id number] ####[facility] ([facility])[address] [place] [address] UREA NITROGEN/CREATININE (MASS RATIO) IN SER/PLAS 40.4 Normal [facility] Comment on above: Performed By: #### L [id number] ####[facility] ([facility])[address] [place] [address] CBC WITH AUTO DIFFERENTIALon 06-16-2023 Basophils (Bld) [#/Vol] 0.05 10*3/uL Normal 0.00-0.20 [facility] Comment on above: Performed By: #### L [id number] ####[facility] [place] [address] Basophils/100 WBC (Bld) 0.8 % Normal 0.0-1.0 [facility] Comment on above: Performed By: #### L [id number] ####[facility] ([facility])[address] [place] [address] Eosinophils (Bld) [#/Vol] 0.16 10*3/uL Normal 0.00-0.50 [facility] Comment on above: Performed By: #### L [id number] ####[facility] ([facility])[address] [place] [address] Eosinophils/100 WBC (Bld) 2.6 % Normal 0.0-6.0 [facility] Comment on above: Performed By: #### L [id number] ####[facility] ([facility])[address] [place] [address] Erythrocyte distribution width (RBC) [Ratio] 16.6 % High 11.5-15.0 [facility] Comment on above: Performed By: #### L [id number] ####[facility] ([facility])[address] [place] [address] ERYTHROCYTE MEAN CORPUSCULAR HEMOGLOBIN CONCENTRATION (G/DL) BY AUTOMATED 31.1 g/dL Low 32.0-35.0 [facility] Comment on above: Performed By: #### L [id number] ####[facility] [place] [address] Hematocrit (Bld) [Volume fraction] 33.8 % Low 39.0-55.0 [facility] Comment on above: Performed By: #### L [id number] ####[facility] ([facility])[address] [place] [address] Hemoglobin (Bld) [Mass/Vol] 10.5 g/dL Low 13.0-17.0 [facility] Comment on above: Performed By: #### L [id number] ####[facility] ([facility])[address] [place] [address] Immature granulocytes (Bld) [#/Vol] 0.02 10*3/uL Normal 0.00-0.20 [facility] Comment on above: Performed By: #### L [id number] ####[facility] ([facility])[address] [place] [address] Immature granulocytes/100 WBC (Bld) 0.3 % Normal 0.0-1.0 [facility] Comment on above: Performed By: #### L [id number] ####[facility] ([facility])[address] [place] [address] Lymphocytes (Bld) [#/Vol] 1.88 10*3/uL Normal 1.20-4.00 [facility] Comment on above: Performed By: #### L [id number] ####[facility] [place] [address] Lymphocytes/100 WBC (Bld) 30.4 % Normal 20.0-45.0 [facility] Comment on above: Performed By: #### L [id number] ####[facility] ([facility])[address] [place] [address] MCH (RBC) [Entitic mass] 24.2 pg Low 27.0-33.0 [facility] Comment on above: Performed By: #### L [id number] ####[facility] ([facility])[address] [place] [address] MCV (RBC) [Entitic vol] 78.1 fL Low 82.0-98.0 [facility] Comment on above: Performed By: #### L [id number] ####[facility] ([facility])[address] [place] [address] Monocytes (Bld) [#/Vol] 0.73 10*3/uL Normal 0.10-1.00 [facility] Comment on above: Performed By: #### L [id number] ####[facility] ([facility])[address] [place] [address] Monocytes/100 WBC (Bld) 11.8 % Normal 5.0-12.0 [facility] Comment on above: Performed By: #### L [id number] ####[facility] ([facility])[address] [place] [id number] Neutrophils (Bld) [#/Vol] 3.35 10*3/uL Normal 1.60-7.60 [facility] Comment on above: Performed By: #### L [id number] ####[facility] ([facility])[address] [address] Neutrophils/100 WBC (Bld) 54.1 % Normal 40.0-72.0 [facility] Comment on above: Performed By: #### L [id number] ####[facility] ([facility])[address] [place] [id number] NRBC (PER 100 WBCS) BY AUTOMATED COUNT 0.0 % Normal 0 [facility] Comment on above: Performed By: #### L [id number] ####[facility] ([facility])[address] [address] PLATELETS (10*3/UL) IN BLOOD AUTOMATED COUNT 264 10*3/uL Normal 150-400 [facility] Comment on above: Performed By: #### L [id number] ####[facility] ([facility])[address] [address] RBC (Bld) [#/Vol] 4.33 10*6/uL Normal 4.20-5.70 [facility] Comment on above: Performed By: #### L [id number] ####[facility] ([facility])[address] [address] WBC (Bld) [#/Vol] 6.19 10*3/uL Normal 4.00-10.60 [facility] Comment on above: Performed By: #### L [id number] ####[facility] ([facility])[address] [address] CONSULTon 06-16-2023 CONSULT Normal [facility] MAGNESIUMon 06-16-2023 Magnesium [Mass/Vol] 2.3 mg/dL Normal 1.9-2.7 [facility] Comment on above: Performed By: #### L [id number] ####[facility] ([facility])[address] [place] [address] Orders Onlyon 06-16-2023 Orders Only [id number] Matt Wolff FranciscoJ 1960 M Date Provider Department Center 06/16/[id number], IVI MP PAIN Medical [facility] Family History Family history unknown: Yes [facility] POCT GLUCOSE METER UNSOLICIT ED RESULTSon 06-16-2023 Glucose [Mass/Vol] 207 mg/dL High 70-105 [facility] Comment on above: Order Comment: Waive d Testing in the ED is performed under the ED CLIA certificate #[id number]. Result Comment: [email or web address] Performed By: #### L [id number] ####[facility] ([facility])[address] [place] [address] Glucose [Mass/Vol] 202 mg/dL High 70-105 [facility] Comment on above: Order Comment: Waive d Testing in the ED is performed under the ED CLIA certificate #[id number]. Result Comment: [email or web address] Performed By: #### L [id number] ####[facility] ([facility])[address] [place] [address] Glucose [Mass/Vol] 167 mg/dL High 70-105 [facility] Comment on above: Order Comment: Waive d Testing in the ED is performed under the ED CLIA certificate #[id number]. Result Comment: [email or web address] Performed By: #### L [id number] ####[facility] ([facility])[address] [place] [address] Glucose [Mass/Vol] 159 mg/dL High 70-105 [facility] Comment on above: Order Comment: Waive d Testing in the ED is performed under the ED CLIA certificate #[id number]. Result Comment: [email or web address] Performed By: #### L [id number] ####[facility] ([facility])[address] [place] [address] 30on 06-15-2023 30 [facility] 30 Normal [facility] 30 Normal [facility] BASIC METABOLIC PANELon 02-0 Anion gap [Moles/Vol] 13 mmol/L Normal 7-20 [facility] Comment on above: Performed By: #### L [id number] ####[facility] ([facility])[address] [place] [address] Calcium [Mass/Vol] 8.5 mg/dL Low 8.6-10.3 [facility] Comment on above: Performed By: #### L [id number] ####[facility] ([facility])[address] [place] [address] Chloride [Moles/Vol] 100 mmol/L Normal 98-107 [facility] Comment on above: Performed By: #### L [id number] ####[facility] ([facility])[address] [place] [address] CO2 [Moles/Vol] 27 mmol/L Normal 21-31 [facility] Comment on above: Performed By: #### L [id number] ####[facility] ([facility])[address] [place] [address] Creatinine [Mass/Vol] 1.42 mg/dL High 0.70-1.30 [facility] Comment on above: Performed By: #### L [id number] ####[facility] ([facility])[address] [place] [address] GLOMERULAR FILTRATION RATE ML/MIN/1.73 SQ M.PREDICTED 56.2 mL/min/1.73m*2 Low >60.0 [facility] Comment on above: Result Comment: The [facility]???s estimated glomerular filtration rate (eGFR) will no longer include consideration of race in its calculation. The National Kidney Foundation???s eGFR Task Force developed new recommendations for the estimation of the glomerular filtration rate in the [place] They recommend immediate implementation of the new equation refit without the race variable in all laboratories because the calculation does not include race. In addition to not including race in the calculation and reporting, it included diversity in its development, and has acceptable performance characteristics and potential consequences that do not disproportionately affect any one group of individuals. Performed By: #### L [id number] ####[facility] ([facility])[address] [place] [address] Glucose [Mass/Vol] 109 mg/dL High 70-100 [facility] Comment on above: Performed By: #### L [id number] ####[facility] ([facility])[address] [place] [address] Potassium [Moles/Vol] 4.1 mmol/L Normal 3.5-5.1 [facility] Comment on above: Performed By: #### L [id number] ####[facility] ([facility])[address] [place] [address] Sodium [Moles/Vol] 136 mmol/L Normal 136-145 [facility] Comment on above: Performed By: #### L [id number] ####[facility] ([facility])[address] [place] [address] Urea nitrogen [Mass/Vol] 47 mg/dL High 7-25 [facility] Comment on above: Performed By: #### L [id number] ####[facility] ([facility])[address] [place] [address] UREA NITROGEN/CREATININE (MASS RATIO) IN SER/PLAS 33.1 Normal [facility] Comment on above: Performed By: #### L [id number] ####[facility] ([facility])[address] [place] [address] CBC WITH AUTO DIFFERENTIALon 06-15-2023 Basophils (Bld) [#/Vol] 0.06 10*3/uL Normal 0.00-0.20 [facility] Comment on above: Performed By: #### L [id number] ####[facility] ([facility])[address] [place] [address] Basophils/100 WBC (Bld) 0.9 % Normal 0.0-1.0 [facility] Comment on above: Performed By: #### L [id number] ####[facility] ([facility])[address] [place] [address] Eosinophils (Bld) [#/Vol] 0.20 10*3/uL Normal 0.00-0.50 [facility] Comment on above: Performed By: #### L [id number] ####[facility] ([facility])[address] [place] [address] Eosinophils/100 WBC (Bld) 2.9 % Normal 0.0-6.0 [facility] Comment on above: Performed By: #### L [id number] ####[facility] ([facility])[address] [place] [address] Erythrocyte distribution width (RBC) [Ratio] 16.4 % High 11.5-15.0 [facility] Comment on above: Performed By: #### L [id number] ####[facility] ([facility])[address] [place] [address] ERYTHROCYTE MEAN CORPUSCULAR HEMOGLOBIN CONCENTRATION (G/DL) BY AUTOMATED 30.9 g/dL Low 32.0-35.0 [facility] Comment on above: Performed By: #### L [id number] ####[facility] ([facility])[address] [place] [address] Hematocrit (Bld) [Volume fraction] 36.9 % Low 39.0-55.0 [facility] Comment on above: Performed By: #### L [id number] ####[facility] [place] [address] Hemoglobin (Bld) [Mass/Vol] 11.4 g/dL Low 13.0-17.0 [facility] Comment on above: Performed By: #### L [id number] ####[facility] [place] [address] Immature granulocytes (Bld) [#/Vol] 0.02 10*3/uL Normal 0.00-0.20 [facility] Comment on above: Performed By: #### L [id number] ####[facility] ([facility])[address] [place] [address] Immature granulocytes/100 WBC (Bld) 0.3 % Normal 0.0-1.0 [facility] Comment on above: Performed By: #### L [id number] ####[facility] ([facility])[address] [place] [address] Lymphocytes (Bld) [#/Vol] 2.10 10*3/uL Normal 1.20-4.00 [facility] Comment on above: Performed By: #### L [id number] ####[facility] ([facility])[address] [place] [address] Lymphocytes/100 WBC (Bld) 30.0 % Normal 20.0-45.0 [facility] Comment on above: Performed By: #### L [id number] ####[facility] ([facility])[address] [place] [address] MCH (RBC) [Entitic mass] 23.9 pg Low 27.0-33.0 [facility] Comment on above: Performed By: #### L [id number] ####[facility] ([facility])[address] [place] [address] MCV (RBC) [Entitic vol] 77.4 fL Low 82.0-98.0 [facility] Comment on above: Performed By: #### L [id number] ####[facility] ([facility])[address] [place] [address] Monocytes (Bld) [#/Vol] 0.79 10*3/uL Normal 0.10-1.00 [facility] Comment on above: Performed By: #### L [id number] ####[facility] ([facility])[address] [address] Monocytes/100 WBC (Bld) 11.3 % Normal 5.0-12.0 [facility] Comment on above: Performed By: #### L [id number] ####[facility] ([facility])[address] [place] [address] Neutrophils (Bld) [#/Vol] 3.83 10*3/uL Normal 1.60-7.60 [facility] Comment on above: Performed By: #### L [id number] ####[facility] ([facility])[address] [address] Neutrophils/100 WBC (Bld) 54.6 % Normal 40.0-72.0 [facility] Comment on above: Performed By: #### L [id number] ####[facility] ([facility])[address] [place] [address] NRBC (PER 100 WBCS) BY AUTOMATED COUNT 0.0 % Normal 0 [facility] Comment on above: Performed By: #### L [id number] ####[facility] ([facility])[address] [place] [address] PLATELETS (10*3/UL) IN BLOOD AUTOMATED COUNT 281 10*3/uL Normal 150-400 [facility] Comment on above: Performed By: #### L [id number] ####[facility] ([facility])[address] [place] [address] RBC (Bld) [#/Vol] 4.77 10*6/uL Normal 4.20-5.70 [facility] Comment on above: Performed By: #### L [id number] ####[facility] ([facility])[address] [place] [address] WBC (Bld) [#/Vol] 7.00 10*3/uL Normal 4.00-10.60 [facility] Comment on above: Performed By: #### L [id number] ####[facility] ([facility])[address] [place] [address] MAGNESIUMon 06-15-2023 Magnesium [Mass/Vol] 2.1 mg/dL Normal 1.9-2.7 [facility] Comment on above: Performed By: #### L [id number] ####[facility] [place] [address] POCT GLUCOSE METER UNSOLICIT ED RESULTSon 06-15-2023 Glucose [Mass/Vol] 134 mg/dL High 70-105 [facility] Comment on above: Order Comment: Waive d Testing in the ED is performed under the ED CLIA certificate #[id number]. Result Comment: [email or web address] Performed By: #### L [id number] ####[facility] ([facility])[address] [place] [address] Glucose [Mass/Vol] 136 mg/dL High 70-105 [facility] Comment on above: Order Comment: Waive d Testing in the ED is performed under the ED CLIA certificate #[id number]. Result Comment: [email or web address] Performed By: #### L [id number] ####[facility] ([facility])[address] [place] [address] Glucose [Mass/Vol] 159 mg/dL High 70-105 [facility] Comment on above: Order Comment: Waive d Testing in the ED is performed under the ED CLIA certificate #[id number]. Result Comment: [email or web address] Performed By: #### L [id number] ####[facility] ([facility])[address] [place] [address] Glucose [Mass/Vol] 125 mg/dL High 70-105 [facility] Comment on above: Order Comment: Waive d Testing in the ED is performed under the ED CLIA certificate #[id number]. Result Comment: [email or web address] Performed By: #### L [id number] ####[facility] [place] [address] 30on 06-14-2023 30 Normal [facility] BASIC METABOLIC PANELon -0 Anion gap [Moles/Vol] 12 mmol/L Normal 7-20 [facility] Comment on above: Performed By: #### L [id number] ####[facility] ([facility])[address] [place] [address] Calcium [Mass/Vol] 8.6 mg/dL Normal 8.6-10.3 [facility] Comment on above: Performed By: #### L [id number] ####[facility] [place] [address] Chloride [Moles/Vol] 100 mmol/L Normal 98-107 [facility] Comment on above: Performed By: #### L [id number] ####[facility] [place] [address] CO2 [Moles/Vol] 28 mmol/L Normal 21-31 [facility] Comment on above: Performed By: #### L [id number] ####[facility] ([facility])[address] [place] [address] Creatinine [Mass/Vol] 1.19 mg/dL Normal 0.70-1.30 [facility] Comment on above: Performed By: #### L [id number] ####[facility] ([facility])[address] [place] [address] GLOMERULAR FILTRATION RATE ML/MIN/1.73 SQ M.PREDICTED 69.5 mL/min/1.73m*2 Normal >60.0 [facility] Comment on above: Result Comment: The [facility]???s estimated glomerular filtration rate (eGFR) will no longer include consideration of race in its calculation. The National Kidney Foundation???s eGFR Task Force developed new recommendations for the estimation of the glomerular filtration rate in the [place] They recommend immediate implementation of the new equation refit without the race variable in all laboratories because the calculation does not include race. In addition to not including race in the calculation and reporting, it included diversity in its development, and has acceptable performance characteristics and potential consequences that do not disproportionately affect any one group of individuals. Performed By: #### L [id number] ####[facility] [place] [address] Glucose [Mass/Vol] 148 mg/dL High 70-100 [facility] Comment on above: Performed By: #### L [id number] ####[facility] [place] [address] Potassium [Moles/Vol] 4.1 mmol/L Normal 3.5-5.1 [facility] Comment on above: Performed By: #### L [id number] ####[facility] [place] [address] Sodium [Moles/Vol] 136 mmol/L Normal 136-145 [facility] Comment on above: Performed By: #### L [id number] ####[facility] ([facility])[address] [place] [address] Urea nitrogen [Mass/Vol] 34 mg/dL High 7-25 [facility] Comment on above: Performed By: #### L [id number] ####[facility] ([facility])[address] [place] [address] UREA NITROGEN/CREATININE (MASS RATIO) IN SER/PLAS 28.6 Normal [facility] Comment on above: Performed By: #### L [id number] ####[facility] ([facility])[address] [place] [address] CBC WITH AUTO DIFFERENTIALon 06-14-2023 Basophils (Bld) [#/Vol] 0.03 10*3/uL Normal 0.00-0.20 [facility] Comment on above: Performed By: #### L [id number] ####[facility] ([facility])[address] [place] [address] Basophils/100 WBC (Bld) 0.4 % Normal 0.0-1.0 [facility] Comment on above: Performed By: #### L [id number] ####[facility] [place] [address] Eosinophils (Bld) [#/Vol] 0.18 10*3/uL Normal 0.00-0.50 [facility] Comment on above: Performed By: #### L [id number] ####[facility] ([facility])[address] [place] [address] Eosinophils/100 WBC (Bld) 2.4 % Normal 0.0-6.0 [facility] Comment on above: Performed By: #### L [id number] ####[facility] [place] [id number] Erythrocyte distribution width (RBC) [Ratio] 16.8 % High 11.5-15.0 [facility] Comment on above: Performed By: #### L [id number] ####[facility] [address] ERYTHROCYTE MEAN CORPUSCULAR HEMOGLOBIN CONCENTRATION (G/DL) BY AUTOMATED 31.1 g/dL Low 32.0-35.0 [facility] Comment on above: Performed By: #### L [id number] ####[facility] ([facility])[address] [address] Hematocrit (Bld) [Volume fraction] 34.1 % Low 39.0-55.0 [facility] Comment on above: Performed By: #### L [id number] ####[facility] ([facility])[address] [place] [address] Hemoglobin (Bld) [Mass/Vol] 10.6 g/dL Low 13.0-17.0 [facility] Comment on above: Performed By: #### L [id number] ####[facility] ([facility])[address] [place] [id number] Immature granulocytes (Bld) [#/Vol] 0.01 10*3/uL Normal 0.00-0.20 [facility] Comment on above: Performed By: #### L [id number] ####[facility] ([facility])[address] [place] [address] Immature granulocytes/100 WBC (Bld) 0.1 % Normal 0.0-1.0 [facility] Comment on above: Performed By: #### L [id number] ####[facility] [place] [address] Lymphocytes (Bld) [#/Vol] 1.82 10*3/uL Normal 1.20-4.00 [facility] Comment on above: Performed By: #### L [id number] ####[facility] ([facility])[address] [place] [address] Lymphocytes/100 WBC (Bld) 24.5 % Normal 20.0-45.0 [facility] Comment on above: Performed By: #### L [id number] ####[facility] ([facility])[address] [place] [address] MCH (RBC) [Entitic mass] 24.3 pg Low 27.0-33.0 [facility] Comment on above: Performed By: #### L [id number] ####[facility] ([facility])[address] [place] [address] MCV (RBC) [Entitic vol] 78.2 fL Low 82.0-98.0 [facility] Comment on above: Performed By: #### L [id number] ####[facility] [place] [id number] Monocytes (Bld) [#/Vol] 0.70 10*3/uL Normal 0.10-1.00 [facility] Comment on above: Performed By: #### L [id number] ####[facility] (BEAKER)[address] [place] [address] Monocytes/100 WBC (Bld) 9.4 % Normal 5.0-12.0 [facility] Comment on above: Performed By: #### L [id number] ####[facility] (BEAKER)[address] [place] [address] Neutrophils (Bld) [#/Vol] 4.69 10*3/uL Normal 1.60-7.60 [facility] Comment on above: Performed By: #### L [id number] ####[facility] (BEAKER)[address] [place] [address] Neutrophils/100 WBC (Bld) 63.2 % Normal 40.0-72.0 [facility] Comment on above: Performed By: #### L [id number] ####[facility] (BEAKER)[address] [place] [address] NRBC (PER 100 WBCS) BY AUTOMATED COUNT 0.0 % Normal 0 [facility] Comment on above: Performed By: #### L [id number] ####[facility] ([facility])[address] [place] [address] PLATELETS (10*3/UL) IN BLOOD AUTOMATED COUNT 238 10*3/uL Normal 150-400 [facility] Comment on above: Performed By: #### L [id number] ####[facility] ([facility])[address] [place] [address] RBC (Bld) [#/Vol] 4.36 10*6/uL Normal 4.20-5.70 [facility] Comment on above: Performed By: #### L [id number] ####[facility] ([facility])[address] [place] [address] WBC (Bld) [#/Vol] 7.43 10*3/uL Normal 4.00-10.60 [facility] Comment on above: Performed By: #### L [id number] ####[facility] ([facility])[address] [place] [address] MAGNESIUMon 06-14-2023 Magnesium [Mass/Vol] 2.1 mg/dL Normal 1.9-2.7 [facility] Comment on above: Performed By: #### L [id number] ####[facility] ([facility])[address] [place] [address] POCT GLUCOSE METER UNSOLICIT ED RESULTSon 06-14-2023 Glucose [Mass/Vol] 168 mg/dL High 70-105 [facility] Comment on above: Order Comment: Waive d Testing in the ED is performed under the ED CLIA certificate #[id number]. Result Comment: ian page Performed By: #### L [id number] ####[facility] ([facility])[address] [place] [address] Glucose [Mass/Vol] 183 mg/dL High 70-105 [facility] Comment on above: Order Comment: Waive d Testing in the ED is performed under the ED CLIA certificate #[id number]. Result Comment: [email or web address] Performed By: #### L [id number] ####[facility] ([facility])[address] [place] [address] Glucose [Mass/Vol] 164 mg/dL High 70-105 [facility] Comment on above: Order Comment: Waive d Testing in the ED is performed under the ED CLIA certificate #[id number]. Result Comment: [email or web address] Performed By: #### L [id number] ####[facility] ([facility])[address] [place] [address] Glucose [Mass/Vol] 146 mg/dL High 70-105 [facility] Comment on above: Order Comment: Waive d Testing in the ED is performed under the ED CLIA certificate #[id number]. Result Comment: [email or web address] Performed By: #### L [id number] ####[facility] ([facility])[address] [place] [address] 30on --2023 30 The patient is Moder ately Stable - Low risk of patient condition declining or worsening The patient's goals for the shift include Comfort, rest The clinical goals for the shift include Stable VS, safety, and comfort Normal [facility] BASIC METABOLIC PANELon 02-0 Anion gap [Moles/Vol] 11 mmol/L Normal 7-20 [facility] Comment on above: Performed By: #### L [id number] ####[facility] ([facility])[address] [place] [address] Calcium [Mass/Vol] 8.5 mg/dL Low 8.6-10.3 [facility] Comment on above: Performed By: #### L [id number] ####[facility] ([facility])[address] [place] [address] Chloride [Moles/Vol] 105 mmol/L Normal 98-107 [facility] Comment on above: Performed By: #### L [id number] ####[facility] ([facility])[address] [place] [address] CO2 [Moles/Vol] 22 mmol/L Normal 21-31 [facility] Comment on above: Performed By: #### L [id number] ####[facility] ([facility])[address] [place] [address] Creatinine [Mass/Vol] 0.94 mg/dL Normal 0.70-1.30 [facility] Comment on above: Performed By: #### L [id number] ####[facility] ([facility])[address] [place] [address] GLOMERULAR FILTRATION RATE ML/MIN/1.73 SQ M.PREDICTED 92.2 mL/min/1.73m*2 Normal >60.0 [facility] Comment on above: Result Comment: The [facility]???s estimated glomerular filtration rate (eGFR) will no longer include consideration of race in its calculation. The National Kidney Foundation???s eGFR Task Force developed new recommendations for the estimation of the glomerular filtration rate in the [place] They recommend immediate implementation of the new equation refit without the race variable in all laboratories because the calculation does not include race. In addition to not including race in the calculation and reporting, it included diversity in its development, and has acceptable performance characteristics and potential consequences that do not disproportionately affect any one group of individuals. Performed By: #### L [id number] ####[facility] ([facility])[address] [place] [address] Glucose [Mass/Vol] 171 mg/dL High 70-100 [facility] Comment on above: Performed By: #### L [id number] ####[facility] ([facility])[address] [place] [address] Potassium [Moles/Vol] 4.6 mmol/L Normal 3.5-5.1 [facility] Comment on above: Performed By: #### L [id number] ####[facility] ([facility])[address] [place] [address] Sodium [Moles/Vol] 133 mmol/L Low 136-145 [facility] Comment on above: Performed By: #### L [id number] ####[facility] ([facility])[address] [address] Urea nitrogen [Mass/Vol] 27 mg/dL High 7-25 [facility] Comment on above: Performed By: #### L [id number] ####[facility] ([facility])[address] [address] UREA NITROGEN/CREATININE (MASS RATIO) IN SER/PLAS 28.7 Normal [facility] Comment on above: Performed By: #### L [id number] ####[facility] ([facility])[address] [address] CBC WITH AUTO DIFFERENTIALon 06-13-2023 Basophils (Bld) [#/Vol] 0.06 10*3/uL Normal 0.00-0.20 [facility] Comment on above: Performed By: #### L [id number] ####[facility] [place], [place] [address] Basophils/100 WBC (Bld) 1.0 % Normal 0.0-1.0 [facility] Comment on above: Performed By: #### L [id number] ####[facility] ([facility])[address] [place] [address] Eosinophils (Bld) [#/Vol] 0.16 10*3/uL Normal 0.00-0.50 [facility] Comment on above: Performed By: #### L [id number] ####[facility] ([facility])[address] [place], [place] [address] Eosinophils/100 WBC (Bld) 2.8 % Normal 0.0-6.0 [facility] Comment on above: Performed By: #### L [id number] ####[facility] ([facility])[address] [place] [address] Erythrocyte distribution width (RBC) [Ratio] 16.5 % High 11.5-15.0 [facility] Comment on above: Performed By: #### L [id number] ####[facility] ([facility])[address] [place] [address] ERYTHROCYTE MEAN CORPUSCULAR HEMOGLOBIN CONCENTRATION (G/DL) BY AUTOMATED 31.0 g/dL Low 32.0-35.0 [facility] Comment on above: Performed By: #### L [id number] ####[facility] [place] [address] Hematocrit (Bld) [Volume fraction] 32.3 % Low 39.0-55.0 [facility] Comment on above: Performed By: #### L [id number] ####[facility] [place] [address] Hemoglobin (Bld) [Mass/Vol] 10.0 g/dL Low 13.0-17.0 [facility] Comment on above: Performed By: #### L [id number] ####[facility] [place] [address] Immature granulocytes (Bld) [#/Vol] 0.02 10*3/uL Normal 0.00-0.20 [facility] Comment on above: Performed By: #### L [id number] ####[facility] ([facility])[address] [place] [address] Immature granulocytes/100 WBC (Bld) 0.3 % Normal 0.0-1.0 [facility] Comment on above: Performed By: #### L [id number] ####[facility] ([facility])[address] [place] [address] Lymphocytes (Bld) [#/Vol] 1.92 10*3/uL Normal 1.20-4.00 [facility] Comment on above: Performed By: #### L [id number] ####[facility] ([facility])[address] [place] [address] Lymphocytes/100 WBC (Bld) 33.0 % Normal 20.0-45.0 [facility] Comment on above: Performed By: #### L [id number] ####[facility] ([facility])[address] [place] [address] MCH (RBC) [Entitic mass] 24.5 pg Low 27.0-33.0 [facility] Comment on above: Performed By: #### L [id number] ####[facility] ([facility])[address] [place] [address] MCV (RBC) [Entitic vol] 79.2 fL Low 82.0-98.0 [facility] Comment on above: Performed By: #### L [id number] ####[facility] ([facility])[address] [place] [address] Monocytes (Bld) [#/Vol] 0.56 10*3/uL Normal 0.10-1.00 [facility] Comment on above: Performed By: #### L [id number] ####[facility] ([facility])[address] [place] [address] Monocytes/100 WBC (Bld) 9.6 % Normal 5.0-12.0 [facility] Comment on above: Performed By: #### L [id number] ####[facility] ([facility])[address] [place] [address] Neutrophils (Bld) [#/Vol] 3.09 10*3/uL Normal 1.60-7.60 [facility] Comment on above: Performed By: #### L [id number] ####[facility] ([facility])[address] [place] [address] Neutrophils/100 WBC (Bld) 53.3 % Normal 40.0-72.0 [facility] Comment on above: Performed By: #### L [id number] ####[facility] ([facility])[address] [place] [address] NRBC (PER 100 WBCS) BY AUTOMATED COUNT 0.0 % Normal 0 [facility] Comment on above: Performed By: #### L [id number] ####[facility] [place] [address] PLATELETS (10*3/UL) IN BLOOD AUTOMATED COUNT 225 10*3/uL Normal 150-400 [facility] Comment on above: Performed By: #### L [id number] ####[facility] ([facility])[address] [place] [address] RBC (Bld) [#/Vol] 4.08 10*6/uL Low 4.20-5.70 [facility] Comment on above: Performed By: #### L [id number] ####[facility] ([facility])[address] [place] [address] WBC (Bld) [#/Vol] 5.81 10*3/uL Normal 4.00-10.60 [facility] Comment on above: Performed By: #### L [id number] ####[facility] ([facility])[address] [place] [address] CONSULTon 06-13-2023 CONSULT Normal [facility] MAGNESIUMon 06-13-2023 Magnesium [Mass/Vol] 2.3 mg/dL Normal 1.9-2.7 [facility] Comment on above: Performed By: #### L [id number] ####[facility] ([facility])[address] [place] [address] POCT GLUCOSE METER UNSOLICIT ED RESULTSon 06-13-2023 Glucose [Mass/Vol] 160 mg/dL High 70-105 [facility] Comment on above: Order Comment: Waive d Testing in the ED is performed under the ED CLIA certificate #[id number]. Result Comment: [email or web address] Performed By: #### L [id number] ####[facility] ([facility])[address] [place] [address] Glucose [Mass/Vol] 157 mg/dL High 70-105 [facility] Comment on above: Order Comment: Waive d Testing in the ED is performed under the ED CLIA certificate #[id number]. Result Comment: [email or web address] [email or web address] Performed By: #### L [id number] ####[facility] [place] [address] Glucose [Mass/Vol] 183 mg/dL High 70-105 [facility] Comment on above: Order Comment: Waive d Testing in the ED is performed under the ED CLIA certificate #[id number]. Result Comment: [email or web address] [email or web address] Performed By: #### L [id number] ####[facility] ([facility])[address] [place] [address] Glucose [Mass/Vol] 141 mg/dL High 70-105 [facility] Comment on above: Order Comment: Waive d Testing in the ED is performed under the ED CLIA certificate #[id number]. Result Comment: [email or web address] Performed By: #### L [id number] ####[facility] ([facility])[address] [place] [address] TROPONIN Ion 06-13-2023 Troponin I.cardiac [Mass/Vol] 0.01 ng/mL Normal 0.00-0.04 [facility] Comment on above: Performed By: #### L [id number] ####[facility] ([facility])[address] [place] [address] Troponin I.cardiac [Mass/Vol] 0.01 ng/mL Normal 0.00-0.04 [facility] Comment on above: Performed By: #### L [id number] ####[facility] ([facility])[address] [place] [address] TSH3 REFLEX TO FT4on 024 THYROTROPIN (MIU/L) IN SER/PLAS BY DETECTION LIMIT <= 0.05 MIU/L 2.34 mIU/L Normal 0.34-5.60 [facility] Comment on above: Performed By: #### L [id number] ####[facility] ([facility])[address] [facility] [place] [address] 30on 06-12-2023 30 The patient is Moder ately Stable - Low risk of patient condition declining or worsening The patient's goals for the shift include The clinical goals for the shift include stable vs Normal [facility] B-TYPE NATRIURETIC PEPTIDEon 06-12-2023 Natriuretic peptide B (Bld) [Mass/Vol] 35 pg/mL Normal 0-100 [facility] Comment on above: Performed By: #### L [id number] ####[facility] ([facility])[address] [place] [id number] CBC WITH AUTO DIFFERENTIALon 06-12-2023 Erythrocyte distribution width (RBC) [Ratio] 16.2 % High 11.5-15.0 [facility] Comment on above: Performed By: #### L [id number] ####[facility] ([facility])[address] [place] [address] ERYTHROCYTE MEAN CORPUSCULAR HEMOGLOBIN CONCENTRATION (G/DL) BY AUTOMATED 29.9 g/dL Low 32.0-35.0 [facility] Comment on above: Performed By: #### L [id number] ####[facility] ([facility])[address] [place] [address] Hematocrit (Bld) [Volume fraction] 35.4 % Low 39.0-55.0 [facility] Comment on above: Performed By: #### L [id number] ####[facility] ([facility])[address] [place] [address] Hemoglobin (Bld) [Mass/Vol] 10.6 g/dL Low 13.0-17.0 [facility] Comment on above: Performed By: #### L [id number] ####[facility] ([facility])[address] [place] [address] IMMATURE PLATELET FRACTION % 4.6 % Normal 0.8-6.3 [facility] Comment on above: Performed By: #### L [id number] ####[facility] ([facility])[address] [place] [address] MCH (RBC) [Entitic mass] 24.4 pg Low 27.0-33.0 [facility] Comment on above: Performed By: #### L [id number] ####[facility] [place] [id number] MCV (RBC) [Entitic vol] 81.4 fL Low 82.0-98.0 [facility] Comment on above: Performed By: #### L [id number] ####[facility] ([facility])[address] [place] [address] NRBC (PER 100 WBCS) BY AUTOMATED COUNT 0.0 % Normal 0 [facility] Comment on above: Performed By: #### L [id number] ####[facility] ([facility])[address] [place] [address] PLATELETS (10*3/UL) IN BLOOD AUTOMATED COUNT 194 10*3/uL Normal 150-400 [facility] Comment on above: Performed By: #### L [id number] ####[facility] ([facility])[address] [place] [address] RBC (Bld) [#/Vol] 4.35 10*6/uL Normal 4.20-5.70 [facility] Comment on above: Performed By: #### L [id number] ####[facility] ([facility])[address] [place] [address] WBC (Bld) [#/Vol] 5.58 10*3/uL Normal 4.00-10.60 [facility] Comment on above: Performed By: #### L [id number] ####[facility] ([facility])[address] [place] [address] COMPREHENSIVE METABOLIC PANE Brayan 06-12-2023 Albumin [Mass/Vol] 3.5 g/dL Normal 3.5-5.7 [facility] Comment on above: Performed By: #### L [id number] ####[facility] ([facility])[address] [place] [address] ALP [Catalytic activity/Vol] 62 U/L Normal 34-104 [facility] Comment on above: Performed By: #### L [id number] ####[facility] ([facility])[address] [place] [address] ALT [Catalytic activity/Vol] 10 U/L Normal 7-52 [facility] Comment on above: Performed By: #### L [id number] ####[facility] ([facility])[address] [place] [address] Anion gap [Moles/Vol] 10 mmol/L Normal 7-20 [facility] Comment on above: Performed By: #### L [id number] ####[facility] ([facility])[address] [place] [address] AST [Catalytic activity/Vol] 15 U/L Normal 13-39 [facility] Comment on above: Performed By: #### L [id number] ####[facility] ([facility])[address] [place] [address] Bilirubin [Mass/Vol] 0.3 mg/dL Normal 0.3-1.0 [facility] Comment on above: Performed By: #### L [id number] ####[facility] ([facility])[address] [place] [address] Calcium [Mass/Vol] 8.5 mg/dL Low 8.6-10.3 [facility] Comment on above: Performed By: #### L [id number] ####[facility] ([facility])[address] [place] [address] Chloride [Moles/Vol] 109 mmol/L High 98-107 [facility] Comment on above: Performed By: #### L [id number] ####[facility] ([facility])[address] [place] [address] CO2 [Moles/Vol] 22 mmol/L Normal 21-31 [facility] Comment on above: Performed By: #### L [id number] ####[facility] ([facility])[address] [place] [address] Creatinine [Mass/Vol] 0.85 mg/dL Normal 0.70-1.30 [facility] Comment on above: Performed By: #### L [id number] ####[facility] ([facility])[address] [place] [address] GLOMERULAR FILTRATION RATE ML/MIN/1.73 SQ M.PREDICTED 98.9 mL/min/1.73m*2 Normal >60.0 [facility] Comment on above: Result Comment: The [facility]???s estimated glomerular filtration rate (eGFR) will no longer include consideration of race in its calculation. The National Kidney Foundation???s eGFR Task Force developed new recommendations for the estimation of the glomerular filtration rate in the [place] They recommend immediate implementation of the new equation refit without the race variable in all laboratories because the calculation does not include race. In addition to not including race in the calculation and reporting, it included diversity in its development, and has acceptable performance characteristics and potential consequences that do not disproportionately affect any one group of individuals. Performed By: #### L [id number] ####[facility] ([facility])[address] [place] [address] Glucose [Mass/Vol] 118 mg/dL High 70-100 [facility] Comment on above: Performed By: #### L [id number] ####[facility] ([facility])[address] [place] [address] Potassium [Moles/Vol] 4.5 mmol/L Normal 3.5-5.1 [facility] Comment on above: Performed By: #### L [id number] ####[facility] ([facility])[address] [place] [address] Protein [Mass/Vol] 6.8 g/dL Normal 6.0-8.3 [facility] Comment on above: Performed By: #### L [id number] ####[facility] ([facility])[address] [place] [address] Sodium [Moles/Vol] 136 mmol/L Normal 136-145 [facility] Comment on above: Performed By: #### L [id number] ####[facility] ([facility])[address] [place] [address] Urea nitrogen [Mass/Vol] 25 mg/dL Normal 7-25 [facility] Comment on above: Performed By: #### L [id number] ####[facility] ([facility])[address] [place] [address] UREA NITROGEN/CREATININE (MASS RATIO) IN SER/PLAS 29.4 Normal [facility] Comment on above: Performed By: #### L [id number] ####[facility] ([facility])[address] [place] [address] HPon 06-12-2023 HP Normal [facility] MAGNESIUMon 06-12-2023 Magnesium [Mass/Vol] 2.2 mg/dL Normal 1.9-2.7 [facility] Comment on above: Performed By: #### L [id number] ####[facility] ([facility])[address] [place] [address] MANUAL DIFFERENTIALon 2023 BASOPHILS (10*3/UL) IN BLOOD BY CALCULATION 0.04 10*3/uL Normal 0.00-0.20 [facility] Comment on above: Performed By: #### L [id number] ####[facility] ([facility])[address] [place] [address] BASOPHILS/100 LEUKOCYTES IN BLOOD BY AUTOMATED COUNT 0.7 % Normal 0.0-1.0 [facility] Comment on above: Performed By: #### L [id number] ####[facility] ([facility])[address] [place] [address] EOSINOPHILS (10*3/UL) IN BLOOD BY CALCULATION 0.12 10*3/uL Normal 0.00-0.50 [facility] Comment on above: Performed By: #### L [id number] ####[facility] ([facility])[address] [place], [place] [address] EOSINOPHILS/100 LEUKOCYTES IN BLOOD BY AUTOMATED COUNT 2.2 % Normal 0.0-6.0 [facility] Comment on above: Performed By: #### L [id number] ####[facility] ([facility])[address] [place] [address] IMMATURE GRANULOCYTES (10*3/UL) IN BLOOD BY CALCULATION 0.01 10*3/uL Normal 0.00-0.20 [facility] Comment on above: Performed By: #### L [id number] ####[facility] ([facility])[address] [place] [address] IMMATURE GRANULOCYTES/100 LEUKOCYTES IN BLOOD BY AUTOMATED COUNT 0.2 % Normal 0.0-1.0 [facility] Comment on above: Performed By: #### L [id number] ####[facility] ([facility])[address] [place] [address] LYMPHOCYTES (10*3/UL) IN BLOOD BY CALCULATION 1.19 10*3/uL Low 1.20-4.00 [facility] Comment on above: Performed By: #### L [id number] ####[facility] ([facility])[address] [address] LYMPHOCYTES/100 LEUKOCYTES IN BLOOD BY AUTOMATED COUNT 21.3 % Normal 20.0-45.0 [facility] Comment on above: Performed By: #### L [id number] ####[facility] ([facility])[address] [address] MONOCYTES (10*3/UL) IN BLOOD BY CALCUATION 0.43 10*3/uL Normal 0.10-1.00 [facility] Comment on above: Performed By: #### L [id number] ####[facility] ([facility])[address] [place] [address] MONOCYTES/100 LEUKOCYTES IN BLOOD BY AUTOMATED COUNT 7.7 % Normal 5.0-12.0 [facility] Comment on above: Performed By: #### L [id number] ####[facility] ([facility])[address] [place] [address] NEUTROPHILS (10*3/UL) IN BLOOD BY CALCULATION 3.8 10*3/uL Normal 1.6-7.6 [facility] Comment on above: Performed By: #### L [id number] ####[facility] ([facility])[address] [place] [address] NEUTROPHILS/100 LEUKOCYTES IN BLOOD BY AUTOMATED COUNT 67.9 % Normal 40.0-72.0 [facility] Comment on above: Performed By: #### L [id number] ####[facility] [place] [id number] PHOSPHORUSon 06-12-2023 Magnesium [Mass/Vol] 3.5 mg/dL Normal 2.5-5.0 [facility] Comment on above: Performed By: #### L [id number] ####[facility] ([facility])[address] [place] [address] POCT GLUCOSE METER UNSOLICIT ED RESULTSon 06-12-2023 Glucose [Mass/Vol] 170 mg/dL High 70-105 [facility] Comment on above: Order Comment: Waive d Testing in the ED is performed under the ED CLIA certificate #[id number]. Result Comment: [email or web address] Performed By: #### L [id number] ####[facility] ([facility])[address] [place] [address] TROPONIN Ion 06-12-2023 Troponin I.cardiac [Mass/Vol] 0.01 ng/mL Normal 0.00-0.04 [facility] Comment on above: Performed By: #### L [id number] ####[facility] ([facility])[address] [place] [address] 36on 06-11-2023 36 LM for patient to re turn my call. Normal [facility] 36on 06-10-2023 36 Normal [facility] Consent for Treatmenton 05-13 Consent for Treatment [id number]#1.00TIFF [facility] Nursing Assessment - Woundon 06-10-2023 Nursing Assessment - Wound [id number]#1.00TIFF [facility] Nursing Note - Woundon 06-10 Nursing Note - Wound [id number]#1.00TIFF [facility] Physician Orderon 06-10-2023 Physician Order [id number]#1.00TIFF [facility] Procedure - Woundon 06-10-19 Procedure - Wound [id number]#1.00TIFF Normal [facility] Hospital Progress Note - Woundon 05-13 Progress Note - Wound [id number]#1.00TIFF Normal [facility] Basic Metabolic Panelon 05-13 GFR/1.73 sq M.predicted MDRD (S/P/Bld) [Vol rate/Area] mL/min/{1.73_m2} Normal [facility] Comment on above: Performed By: #### B MP #### [facility] [address] [place] [address] [place] Calcium [Mass/volume] in Ser um or PlasmaOrdered By: Ehab Eltahawmonika on 06-09-2023 Calcium [Mass/Vol] 8.7 mg/dL Normal 8.6-10.3 [facility] Comment on above: Result Comment: PERF ORMED BY: [place] [address] PATHOLOGIST SHIRT SORTER JULIANNE VELASQUEZ M.D. Performed By: #### B MP #### [facility] [address] [place] [address] [place] Carbon dioxide, total [Moles /volume] in Serum or PlasmaOrdered By: Ehab Eltahawy on 06-09-2023 CO2 [Moles/Vol] 25.3 mmol/L Normal 21.0-31.0 [facility] Comment on above: Performed By: #### B MP #### [facility] [address] [place] [address] [place] Chloride [Moles/volume] in S shantanu or PlasmaOrdered By: Ehab Eltahawy on 06-09-2023 Chloride [Moles/Vol] 104 mmol/L Normal 98-107 [facility] Comment on above: Performed By: #### B MP #### [facility] [address] [place] [address] [place] Creatinine [Mass/volume] in Serum or PlasmaOrdered By: Ehab Eltahawy on 06-09-2023 Creatinine [Mass/Vol] 1.09 mg/dL Normal 0.70-1.30 [facility] Comment on above: Performed By: #### B MP #### [facility] [address] [place] [address] [place] Glucose [Mass/volume] in Ser um or PlasmaOrdered By: Janet Gomez on 06-09-2023 Glucose [Mass/Vol] 125 mg/dL High 70-100 [facility] Comment on above: ADA recommended refe rence rangeRandom Glucose Reference Range is dependent on time and content of last meal. Glucose of more than 200 mg/dL in a nonstressed, ambulatory subject supports the diagnosis of Diabetes Mellitus. Result Comment: Camilla om Glucose Reference Range is dependent on time and content of last meal. Glucose of more than 200 mg/dL in a nonstressed, ambulatory subject supports the diagnosis of Diabetes Mellitus. ADA recommended reference range Performed By: #### B MP #### [address] No Panel InformationOrdered By: Janet Gomez on 06-09-2023 Estimated GFR (CKD-EPI) > 60.0 mL/Min [facility] Creatinine Clearance (Chem N/A [facility] Potassium [Moles/volume] in Serum or PlasmaOrdered By: Janet Gomez on 06-09-2023 Potassium [Moles/Vol] 5.0 mmol/L Normal 3.5-5.1 [facility] Comment on above: Performed By: #### B MP #### [address] Serum or plasma anion gap de terminationOrdered By: Janet Gomez on 06-09-2023 Anion gap [Moles/Vol] 11.7 mmol/L Normal 6.0-15.0 [facility] Comment on above: Performed By: #### B MP #### [address] Sodium [Moles/volume] in Ser um or PlasmaOrdered By: Janet Gomez on 06-09-2023 Sodium [Moles/Vol] 136 mmol/L Normal 136-145 [facility] Comment on above: Performed By: #### B MP #### [facility] [address] Urea nitrogen [Mass/volume] in Serum or PlasmaOrdered By: Janet Gomez on 06-09-2023 Urea nitrogen [Mass/Vol] 29 mg/dL High 7-25 [facility] Comment on above: Performed By: #### B MP #### [facility] [address] Valproate [Mass/volume] in S shantanu or PlasmaOrdered By: Helen Sanford on 06-09-2023 Valproate [Mass/Vol] 18.9 ug/mL 50.0-100.0 [facility] Comment on above: Last dose: - Valproic Acid (in house)on 0 06-09-2023 Valproic Acid (in house) 18.9 ug/mL Low 50.0-100.0 [facility] Comment on above: Order Comment: Reaso n for Exam Bipolar depression;Medication management Date of last dose?: 20230608 Time of last dose?: 1899 Result Comment: Last dose: - PERFORMED BY: [place] [address] PATHOLOGIST SHIRT SORTER JULIANNE VELASQUEZ M.D. Performed By: #### V ALP #### [place] [id number] [facility] Consent for Procedure/Surger yon 05-20-2023 Consent for Procedure/Surgery [id number]#1.00TIFF [facility] Consent for Treatmenton 05-11 Consent for Treatment [id number]#1.00TIFF [facility] Multi-Wound Charton 05-20-19 Multi-Wound Chart [id number]#1.00TIFF [facility] Nursing Assessment - Woundon 05-20-2023 Nursing Assessment - Wound [id number]#1.00TIFF [facility] Nursing Note - Woundon 05-20 Nursing Note - Wound [id number]#1.00TIFF [facility] Physician Orderon 05-20-2023 Physician Order [id number]#1.00TIFF [facility] Procedure - Woundon 05-20-19 Procedure - Wound [id number]#1.00TIFF [facility] Progress Note - Woundon 05-11 Progress Note - Wound [id number]#1.00TIFF [facility] Consent for Procedure/Surger yon 05-06-2023 Consent for Procedure/Surgery [id number]#1.00TIFF [facility] Consent for Treatmenton 04-11 Consent for Treatment [id number]#1.00TIFF [facility] Multi-Wound Charton 05-06-20 Multi-Wound Chart [id number]#1.00TIFF [facility] Nursing Assessment - Woundon 05-06-2023 Nursing Assessment - Wound [id number]#1.00TIFF [facility] Nursing Note - Woundon 05-06 Nursing Note - Wound [id number]#1.00TIFF [facility] Physician Orderon 05-06-2023 Physician Order [id number]#1.00TIFF [facility] Procedure - Woundon 05-06-20 Procedure - Wound [id number]#1.00TIFF Normal [facility] Progress Note - Woundon 12-2 Progress Note - Wound [id number]#1.00TIFF Normal [facility] Alanine aminotransferase [En zymatic activity/volume] in Serum or PlasmaOrdered By: Suraj Llanos on 04-23-2023 ALT [Catalytic activity/Vol] 9 U/L Normal 7-52 [facility] Comment on above: Order Comment: Reaso n for Exam Bilious vomiting with nausea Performed By: #### L IPASE, CBC, CMP #### [facility] [address] Albumin [Mass/volume] in Ser um or Plasma by Bromocresol green (BCG) dye binding methoOrdered By: Suraj Llanos on 04-23-2023 Albumin BCG dye [Mass/Vol] 3.7 g/dL 3.5-5.7 [facility] Alkaline phosphatase [Enzyma tic activity/volume] in Serum or PlasmaOrdered By: Suraj Llanos on 04-23-2023 ALP [Catalytic activity/Vol] 69 U/L Normal 34-104 [facility] Comment on above: Order Comment: Reaso n for Exam Bilious vomiting with nausea Performed By: #### L IPASE, CBC, CMP #### [facility] [address] [place] [address] [place] Aspartate aminotransferase [ Enzymatic activity/volume] in Serum or PlasmaOrdered By: Suraj Llanos on 04-23-2023 AST [Catalytic activity/Vol] 13 U/L Normal 13-39 [facility] Comment on above: Order Comment: Reaso n for Exam Bilious vomiting with nausea Performed By: #### L IPASE, CBC, CMP #### [facility] [address] [place] [address] [place] Automated basophil %Ordered By: Suraj Llanos on 04-23-2023 Basophils/100 WBC (Bld) 1.0 % Normal . [facility] Comment on above: Order Comment: Reaso n for Exam Bilious vomiting with nausea Performed By: #### L IPASE, CBC, CMP #### [address] Automated basophil countOrde red By: Suraj Llanos on 04-23-2023 Basophils (Bld) [#/Vol] 0.1 10*3/uL Normal 0.0-0.2 [facility] Comment on above: Order Comment: Reaso n for Exam Bilious vomiting with nausea Result Comment: PERF ORMED BY: [place] [address] PATHOLOGIST SHIRT SORTER JULIANNE VELASQUEZ M.D. Performed By: #### L IPASE, CBC, CMP #### [address] Automated blood monocyte cou ntOrdered By: Suraj Llanos on 04-23-2023 Monocytes (Bld) [#/Vol] 0.7 10*3/uL Normal 0.0-0.8 [facility] Comment on above: Order Comment: Reaso n for Exam Bilious vomiting with nausea Performed By: #### L IPASE, CBC, CMP #### [address] Automated eosinophil %Ordere d By: Suraj Llanos on 04-23-2023 Eosinophils/100 WBC (Bld) 3.0 % Normal . [facility] Comment on above: Order Comment: Reaso n for Exam Bilious vomiting with nausea Performed By: #### L IPASE, CBC, CMP #### [address] Automated eosinophil countOr dered By: Suraj Llanos on 04-23-2023 Eosinophils (Bld) [#/Vol] 0.2 10*3/uL Normal 0.0-0.45 [facility] Comment on above: Order Comment: Reaso n for Exam Bilious vomiting with nausea Performed By: #### L IPASE, CBC, CMP #### [address] Automated monocyte %Ordered By: Suraj Llanos on 04-23-2023 Monocytes/100 WBC (Bld) 8.2 % Normal . [facility] Comment on above: Order Comment: Reaso n for Exam Bilious vomiting with nausea Performed By: #### L IPASE, CBC, CMP #### [facility] [address] Automated neutrophil %Ordere d By: Suraj Llanos on 04-23-2023 Neutrophils/100 WBC (Bld) 63.4 % Normal . [facility] Comment on above: Order Comment: Reaso n for Exam Bilious vomiting with nausea Performed By: #### L IPASE, CBC, CMP #### [facility] [address] Bilirubin.total [Mass/volume ] in Serum or PlasmaOrdered By: Suraj Llanos on 04-23-2023 Bilirubin [Mass/Vol] 0.4 mg/dL Normal 0.3-1.0 [facility] Comment on above: Order Comment: Reaso n for Exam Bilious vomiting with nausea Performed By: #### L IPASE, CBC, CMP #### [facility] [address] Calcium [Mass/volume] in Ser um or PlasmaOrdered By: Suraj Llanos on 04-23-2023 Calcium [Mass/Vol] 8.9 mg/dL Normal 8.6-10.3 [facility] Comment on above: Order Comment: Reaso n for Exam Bilious vomiting with nausea Performed By: #### L IPASE, CBC, CMP #### [address] Carbon dioxide, total [Moles /volume] in Serum or PlasmaOrdered By: Suraj Llanos on 04-23-2023 CO2 [Moles/Vol] 28.1 mmol/L Normal 21.0-31.0 [facility] Comment on above: Order Comment: Reaso n for Exam Bilious vomiting with nausea Performed By: #### L IPASE, CBC, CMP #### [facility] [address] [place] [address] [place] Chloride [Moles/volume] in S shantanu or PlasmaOrdered By: Suraj Llanos on 04-23-2023 Chloride [Moles/Vol] 101 mmol/L Normal 98-107 [facility] Comment on above: Order Comment: Reaso n for Exam Bilious vomiting with nausea Performed By: #### L IPASE, CBC, CMP #### [address] Complete Blood Count Auto Di ffon 04-23-2023 Mean Corpuscular HGB Conc 32.1 g/dL Low 32.5-35.6 [facility] Comment on above: Order Comment: Reaso n for Exam Bilious vomiting with nausea Performed By: #### L IPASE, CBC, CMP #### [address] NRBC% 0.1 /100{WBC} Normal 0-0.5 [facility] Comment on above: Order Comment: Reaso n for Exam Bilious vomiting with nausea Performed By: #### L IPASE, CBC, CMP #### [address] Comprehensive Metabolic Pane brayan 04-23-2023 Albumin [Mass/Vol] 3.7 g/dL Normal 3.5-5.7 [facility] Comment on above: Order Comment: Reaso n for Exam Bilious vomiting with nausea Performed By: #### L IPASE, CBC, CMP #### [address] GFR/1.73 sq M.predicted MDRD (S/P/Bld) [Vol rate/Area] mL/min/{1.73_m2} Normal [facility] Comment on above: Order Comment: Reaso n for Exam Bilious vomiting with nausea Performed By: #### L IPASE, CBC, CMP #### [address] Creatinine [Mass/volume] in Serum or PlasmaOrdered By: Suraj Llanos on 04-23-2023 Creatinine [Mass/Vol] 0.89 mg/dL Normal 0.70-1.30 [facility] Comment on above: Order Comment: Reaso n for Exam Bilious vomiting with nausea Performed By: #### L IPASE, CBC, CMP #### [address] Erythrocyte distribution wid th [Ratio] by Automated countOrdered By: Suraj Llanos on 04-23-2023 Erythrocyte distribution width (RBC) [Ratio] 16.6 % High 12.0-14.8 [facility] Comment on above: Order Comment: Reaso n for Exam Bilious vomiting with nausea Performed By: #### L IPASE, CBC, CMP #### [facility] [address] Erythrocytes [#/volume] in B lood by Automated countOrdered By: Suraj Llanos on 04-23-2023 RBC (Bld) [#/Vol] 4.23 10*6/uL Normal 3.90-5.60 [facility] Comment on above: Order Comment: Reaso n for Exam Bilious vomiting with nausea Performed By: #### L IPASE, CBC, CMP #### [facility] [address] [place] [address] [place] Glucose [Mass/volume] in Ser um or PlasmaOrdered By: Suraj Llanos on 04-23-2023 Glucose [Mass/Vol] 130 mg/dL High 70-100 [facility] Comment on above: ADA recommended refe rence rangeRandom Glucose Reference Range is dependent on time and content of last meal. Glucose of more than 200 mg/dL in a nonstressed, ambulatory subject supports the diagnosis of Diabetes Mellitus. Order Comment: Reaso n for Exam Bilious vomiting with nausea Result Comment: Camilla om Glucose Reference Range is dependent on time and content of last meal. Glucose of more than 200 mg/dL in a nonstressed, ambulatory subject supports the diagnosis of Diabetes Mellitus. ADA recommended reference range Performed By: #### L IPASE, CBC, CMP #### [facility] [address] [place] [address] [place] Hematocrit [Volume Fraction] of Blood by Automated countOrdered By: Suraj Llanos on 04-23-2023 Hematocrit (Bld) [Volume fraction] 32.4 % Low 38.8-50.0 [facility] Comment on above: Order Comment: Reaso n for Exam Bilious vomiting with nausea Performed By: #### L IPASE, CBC, CMP #### [facility] [address] [place] [address] [place] Hemoglobin [Mass/volume] in BloodOrdered By: Suraj Llanos on 04-23-2023 Hemoglobin (Bld) [Mass/Vol] 10.4 g/dL Low 13.0-17.0 [facility] Comment on above: Order Comment: Reaso n for Exam Bilious vomiting with nausea Performed By: #### L IPASE, CBC, CMP #### [facility] [address] [place] [address] [place] Leukocytes [#/volume] correc alicia for nucleated erythrocytes in Blood by Automated counOrdered By: Suraj Llanos on 04-23-2023 WBC corrected for nucl RBC Auto (Bld) [#/Vol] 8.1 10*3/uL 4.1-10.5 [facility] Leukocytes [#/volume] in Blo od by Automated countOrdered By: Suraj Llanos on 04-23-2023 WBC (Bld) [#/Vol] 8.1 10*3/uL Normal 4.1-10.5 [facility] Comment on above: Order Comment: Reaso n for Exam Bilious vomiting with nausea Performed By: #### L IPASE, CBC, CMP #### [facility] [address] [place] [address] [place] Lipase [Enzymatic activity/v olume] in Serum or PlasmaOrdered By: Suraj Llanos on 04-23-2023 Lipase [Catalytic activity/Vol] 64.0 U/L Normal 11.0-82.0 [facility] Comment on above: Order Comment: Reaso n for Exam Bilious vomiting with nausea Result Comment: PERF ORMED BY: [place] [address] PATHOLOGIST SHIRT SORTER JULIANNE VELASQUEZ M.D. Performed By: #### L IPASE, CBC, CMP #### [facility] [address] [place] [address] [place] Lymphocytes [#/volume] in Bl ood by Automated countOrdered By: Suraj Llanos on 04-23-2023 Lymphocytes (Bld) [#/Vol] 2.0 10*3/uL Normal 1.00-4.8 [facility] Comment on above: Order Comment: Reaso n for Exam Bilious vomiting with nausea Performed By: #### L IPASE, CBC, CMP #### [address] Lymphocytes/100 leukocytes i n Blood by Automated countOrdered By: Suraj Llanos on 04-23-2023 Lymphocytes/100 WBC (Bld) 24.4 % Normal . [facility] Comment on above: Order Comment: Reaso n for Exam Bilious vomiting with nausea Performed By: #### L IPASE, CBC, CMP #### [address] MCH [Entitic mass] by Automa alicia countOrdered By: Suraj Llanos on 04-23-2023 MCH (RBC) [Entitic mass] 24.7 pg Low 27.5-35.2 [facility] Comment on above: Order Comment: Reaso n for Exam Bilious vomiting with nausea Performed By: #### L IPASE, CBC, CMP #### [address] MCHC Auto (RBC) [Mass/Vol]Or dered By: Suraj Llanos on 04-23-2023 MCHC (RBC) [Mass/Vol] 32.1 g/dL 32.5-35.6 [facility] MCV [Entitic volume] by Auto mated countOrdered By: Suraj Llanos on 04-23-2023 MCV (RBC) [Entitic vol] 76.7 fL Low 83.5-101 [facility] Comment on above: Order Comment: Reaso n for Exam Bilious vomiting with nausea Performed By: #### L IPASE, CBC, CMP #### [address] Neutrophils [#/volume] in Bl ood by Automated countOrdered By: Suraj Llanos on 04-23-2023 Neutrophils (Bld) [#/Vol] 5.2 10*3/uL Normal 1.8-7.7 [facility] Comment on above: Order Comment: Reaso n for Exam Bilious vomiting with nausea Performed By: #### L IPASE, CBC, CMP #### [address] No Panel InformationOrdered By: Suraj Llanos on 04-23-2023 Estimated GFR (CKD-EPI) > 60.0 mL/Min [facility] Creatinine Clearance (Chem N/A [facility] Nucleated erythrocytes [Pres ence] in Blood by Automated countOrdered By: Suraj Llanos on 04-23-2023 Nucleated RBC Auto Ql (Bld) 0.1 /100{WBC} 0-0.5 [facility] Platelet mean volume [Entiti c volume] in Blood by Automated countOrdered By: Suraj Llanos on 04-23-2023 Platelet mean volume (Bld) [Entitic vol] 9.1 fL Normal 6.6-10.1 [facility] Comment on above: Order Comment: Reaso n for Exam Bilious vomiting with nausea Performed By: #### L IPASE, CBC, CMP #### [facility] [address] Platelets [#/volume] in Bloo d by Automated countOrdered By: Suraj Llanos on 04-23-2023 Platelets (Bld) [#/Vol] 276 10*3/uL Normal 150-450 [facility] Comment on above: Order Comment: Reaso n for Exam Bilious vomiting with nausea Performed By: #### L IPASE, CBC, CMP #### [facility] [address] Potassium [Moles/volume] in Serum or PlasmaOrdered By: Suraj Llanos on 04-23-2023 Potassium [Moles/Vol] 4.7 mmol/L Normal 3.5-5.1 [facility] Comment on above: Order Comment: Reaso n for Exam Bilious vomiting with nausea Performed By: #### L IPASE, CBC, CMP #### [facility] [address] [place] [address] [place] Prescriptions/Work Noteson 1 06-24-2022 Prescriptions/Work Notes [id number]#1.00TIFF Normal [facility] Prescriptions/Work Notes [id number]#1.00TIFF Normal [facility] Protein [Mass/volume] in Ser um or PlasmaOrdered By: Suraj Llanos on 04-23-2023 Protein [Mass/Vol] 7.5 g/dL Normal 6.4-8.9 [facility] Comment on above: Order Comment: Reaso n for Exam Bilious vomiting with nausea Performed By: #### L IPASE, CBC, CMP #### [address] Serum globulin measurement b y calculation (mass/volume)Ordered By: Suraj Llanos on 04-23-2023 Globulin (S) [Mass/Vol] 3.8 g/dL [facility] Comment on above: Order Comment: Reaso n for Exam Bilious vomiting with nausea Performed By: #### L IPASE, CBC, CMP #### [address] Serum or plasma albumin/glob ulin mass ratioOrdered By: Suraj Llanos on 04-23-2023 Albumin/Globulin [Mass ratio] 1.0 {ratio} [facility] Comment on above: Order Comment: Reaso n for Exam Bilious vomiting with nausea Performed By: #### L IPASE, CBC, CMP #### [address] Serum or plasma anion gap de terminationOrdered By: Suraj Llanos on 04-23-2023 Anion gap [Moles/Vol] 10.6 mmol/L Normal 6.0-15.0 [facility] Comment on above: Order Comment: Reaso n for Exam Bilious vomiting with nausea Performed By: #### L IPASE, CBC, CMP #### [address] Sodium [Moles/volume] in Ser um or PlasmaOrdered By: Suraj Llanos on 04-23-2023 Sodium [Moles/Vol] 135 mmol/L Low 136-145 [facility] Comment on above: Order Comment: Reaso n for Exam Bilious vomiting with nausea Performed By: #### L IPASE, CBC, CMP #### [address] Urea nitrogen [Mass/volume] in Serum or PlasmaOrdered By: Suraj Llanos on 04-23-2023 Urea nitrogen [Mass/Vol] 26 mg/dL High 12-02 [facility] Comment on above: Order Comment: Reaso n for Exam Bilious vomiting with nausea Performed By: #### L IPASE, CBC, CMP #### [address] Consent for Procedure/Surger yon 03-11-2023 Consent for Procedure/Surgery [id number]#1.00TIFF Normal [facility] Consent for Treatmenton Consent for Treatment [id number]#1.00TIFF [facility] Multi-Wound Charton 03-11-20 Multi-Wound Chart [id number]#1.00TIFF [facility] Nursing Assessment - Woundon 03-11-2023 Nursing Assessment - Wound [id number]#1.00TIFF [facility] Nursing Note - Woundon 03-11 Nursing Note - Wound [id number]#2.00TIFF [facility] Physician Orderon 03-11-2023 Physician Order [id number]#1.00TIFF [facility] Procedure - Woundon 03-11-20 Procedure - Wound [id number]#1.00TIFF [facility] Progress Note - Woundon Progress Note - Wound [id number]#1.00TIFF [facility] Consent for Procedure/Surger yon 03-03-2023 Consent for Procedure/Surgery [id number]#1.00TIFF [facility] Consent for Treatmenton 02-09 Consent for Treatment [id number]#1.00TIFF [facility] Consent to Photographon 02-09 Consent to Photograph [id number]#1.00TIFF [facility] Correspondence - Woundon Correspondence - Wound [id number]#1.00TIFF [facility] Correspondence - Wound [id number]#1.00TIFF [facility] Multi-Wound Charton 03-03-20 Multi-Wound Chart [id number]#1.00TIFF [facility] Nursing Assessment - Woundon 03-03-2023 Nursing Assessment - Wound [id number]#1.00TIFF [facility] Nursing Assessment - Wound [id number]#1.00TIFF [facility] Physician Orderon 03-03-2023 Physician Order [id number]#1.00TIFF [facility] Procedure - Woundon 03-03-20 Procedure - Wound [id number]#1.00TIFF [facility] Progress Note - Woundon 02-09 Progress Note - Wound [id number]#1.00TIFF [facility] Consent for Treatmenton 02-08 Consent for Treatment [id number]#1.00TIFF [facility] Discharge Instructionson Discharge Instructions [id number]#1.00TIFF Normal [facility] ED Clinical Summaryon 2022 ED Clinical Summary Normal [facility] ED Note-Physicianon 02-27-20 ED Note-Physician Normal [facility] Comment on above: Result Comment: Elec tronically Signed By: Derrick Benson DObr\Date and Time Signed: 02/26/23 21:08 EDT ED Patient Education Noteon 02-26-2023 ED Patient Education Note Normal [facility] ED Patient Summaryon 023 ED Patient Summary Normal [facility] Operative Reporton 3 Operative Report Normal [facility] Comment on above: Result Comment: Elec tronically Signed By: Santos Epperson DPM\.br\Date and Time Signed: 02/18/23 11:01 EDT C Blood Charcoalon 3 Blood Culture Charcoal Normal [facility] Comment on above: Performed By: #### 1 [id number] ####[facility] [address] [place] [address] Blood Culture Charcoal Normal [facility] Comment on above: Performed By: #### 1 [id number] ####[facility] [address] [place] [address] C Blood Charcoalon 3 Blood Culture Charcoal Normal [facility] Comment on above: Performed By: #### 1 [id number] ####[facility] [address] [place], [place] [address] Consent for PICC lineon 10-0 Consent for PICC line [id number]#1.00TIFF Normal [facility] Discharge Instructionson Discharge Instructions [id number]#1.00TIFF Normal [facility] General Message Officeon General Message Office Normal [facility] Medication Listson 3 Medication Lists [id number]#1.00CD:127 Normal [facility] Transfer Documentson 023 Transfer Documents [id number]#1.00CD:127 Normal [facility] Transfer Documents [id number]#1.00CD:127 Normal [facility] Transfer Documents [id number]#1.00CD:127 Normal [facility] Transfer Documents [id number]#1.00CD:127 Normal [facility] Capillary Glucose POCon Glucose [Mass/Vol] 172 mg/dL High 55-99 [facility] Comment on above: Result Comment: Mary COLLAZO Performed By: #### 2 [id number] ####[facility] [address] [place] [address] Glucose [Mass/Vol] 211 mg/dL High 55-99 [facility] Comment on above: Result Comment: Mary COLLAZO Performed By: #### 2 66980580 ####[facility] [address] [place] [address] Glucose [Mass/Vol] 162 mg/dL High 55-[address] [place] [address] Comment on above: Result Comment: Mary COLLAZO Performed By: #### 2 [id number] ####[facility] [address] [place] [address] Coding Queryon 02-11-2023 Coding Query Normal [facility] Discharge Note-Nursingon Discharge Note-Nursing Normal [facility] Inpatient Clinical Summaryon 02-11-2023 Inpatient Clinical Summary Normal [facility] Inpatient Patient Summaryon 02-11-2023 Inpatient Patient Summary Normal [facility] Interdisciplinary Note - Virgil e Manageron 02-11-2023 Interdisciplinary Note - Pharmacy Analyst Normal [facility] Comment on above: Result Comment: Elec tronically Signed By: Franci Peace\Date and Time Signed: 02/11/23 10:41 EDT XR Chest Single Viewon 02-11 XR Chest Single View Normal [facility] BMPon 02-10-2023 Anion gap [Moles/Vol] 8 mmol/L Normal 6-16 [facility] Comment on above: Performed By: #### 2 835957, 04358188, 0040792 ####[facility] [address] [place] [address] Calcium [Mass/Vol] 8.8 mg/dL Low 8.9-11.1 [facility] Comment on above: Performed By: #### 2 399787, 16160720, 9128013 ####[facility] [address] [place] [address] Chloride [Moles/Vol] 112 mmol/L High 101-111 [facility] Comment on above: Performed By: #### 2 576983, 56125954, 0359626 ####[facility] [address] [place] [address] CO2 [Moles/Vol] 25 mmol/L Normal 21-31 [facility] Comment on above: Performed By: #### 2 980248, 07280456, 9842834 ####[facility] [address] [place] [address] Creatinine [Mass/Vol] 0.9 mg/dL Normal 0.5-1.3 [facility] Comment on above: Performed By: #### 2 046520, 34528489, 8496715 ####[facility] [address] [place] [address] Glucose [Mass/Vol] 149 mg/dL Normal 55-199 [facility] Comment on above: Result Comment: If t his glucose result represents a fasting glucose, interpretation should refer to the following reference range: 55-99 mg/dL Performed By: #### 2 393531, 17598008, 1790211 ####[facility] [address] [place] [address] Potassium [Moles/Vol] 3.9 mmol/L Normal 3.5-5.3 [facility] Comment on above: Performed By: #### 2 609952, 14128054, 4674537 ####[facility] [address] [place] [address] Sodium [Moles/Vol] 141 mmol/L Normal 135-145 [facility] Comment on above: Performed By: #### 2 216864, 87805953, 6552555 ####[facility] [address] [place] [address] Urea nitrogen [Mass/Vol] 17 mg/dL Normal 5-21 [facility] Comment on above: Performed By: #### 2 785784, 26955238, 0491817 ####[facility] [address] [place] [address] Urea nitrogen/Creatinine [Mass ratio] 19 No Units Normal 10-20 [facility] Comment on above: Performed By: #### 2 606009, 13324685, 7679223 ####[facility] [address] [place] [address] C Blood Charcoalon 3 Blood Culture Charcoal Normal [facility] Comment on above: Performed By: #### 1 6975829 ####[facility] [address] [place] [address] CBC w/Indiceson 02-10-2023 Erythrocyte distribution width (RBC) [Ratio] 17.1 % High 10.9-14.2 [facility] Comment on above: Performed By: #### 2 678532, 37734705, 2666065 ####[facility] [address] [place] [address] Hematocrit (Bld) [Volume fraction] 23.4 % Low 37.7-49.0 [facility] Comment on above: Performed By: #### 2 832725, 01554809, 0008586 ####[facility] [address] [place] [address] Hemoglobin (Bld) [Mass/Vol] 7.6 g/dL Low 13.5-17.5 [facility] Comment on above: Performed By: #### 2 570915, 98648848, 8989323 ####[place] [address] MCH (RBC) [Entitic mass] 25.6 pg Low 27.0-34.0 [facility] Comment on above: Performed By: #### 2 881297, 98710321, 9587280 ####[address] [address] MCHC (RBC) [Mass/Vol] 32.5 g/dL Normal 31.4-36.0 [facility] Comment on above: Performed By: #### 2 554810, 34100249, 7120083 ####[place] [address] MCV (RBC) [Entitic vol] 78.8 fL Low 80.0-100.0 [facility] Comment on above: Performed By: #### 2 774082, 22294557, 7524190 ####[place] [address]57 Platelet mean volume (Bld) [Entitic vol] 7.7 fL Normal 6.4-10.8 [facility] Comment on above: Performed By: #### 2 817476, 06893483, 6960486 ####[place] [address] Platelets (Bld) [#/Vol] 411.0 E9/L Normal 150.0-500.0 [facility] Comment on above: Performed By: #### 2 471565, 89270664, 9915311 ####[address] [address] RBC (Bld) [#/Vol] 3.0 E12/L Low 4.3-5.9 [facility] Comment on above: Performed By: #### 2 332928, 91731472, 4733626 ####[facility] [address] [place] [address] WBC corrected for nucl RBC Auto (Bld) [#/Vol] 7.2 E9/L Normal 4.0-11.0 [facility] Comment on above: Performed By: #### 2 345857, 30662475, 9485781 ####[facility] [address] [place] [address] Capillary Glucose POCon Glucose [Mass/Vol] 193 mg/dL High 55-99 [facility] Comment on above: Result Comment: Mary COLLAZO Performed By: #### 2 82520439 ####[address] [address] Glucose [Mass/Vol] 193 mg/dL High - [facility] Comment on above: Result Comment: Mary COLLAZO Performed By: #### 2 23449808 ####[address] [address] Glucose [Mass/Vol] 239 mg/dL High - [facility] Comment on above: Result Comment: Mary COLLAZO Performed By: #### 2 45340540 ####[address] [address] Glucose [Mass/Vol] 138 mg/dL High 55- [facility] Comment on above: Result Comment: Mary COLLAZO Performed By: #### 2 29787976 ####[address] [address] Consent for Anesthesiaon Consent for Anesthesia [id number]#1.00CD:127 Normal [facility] Consultation Noteon 02-11-20 Consultation Note Normal [facility] Comment on above: Result Comment: Elec tronically Signed By: Ronaldo Arcos M.D\Date and Time Signed: 02/10/23 14:37 EDT Interdisciplinary Note - Virgil e Manageron 02-10-2023 Interdisciplinary Note - Pharmacy Analyst Pt was asleep. Plan for Dr Arcos to see to day. Pt will be going to [facility], via van. 2nd copy of Medicare Rights form given at bedside. ANt dc 02/10. CRM to follow. Pt will need PICC line. This will be completed tomorrow. Ant dc to [facility] tomorrow. Normal [facility] Comment on above: Result Comment: Elec tronically Signed By: Franci Peace\.br\Date and Time Signed: 02/10/23 14:51 EDT IntraOperative Documentson 1 IntraOperative Documents [id number]#1.00CD:127 Normal [facility] IntraOperative Documents [id number]#1.00CD:127 Normal [facility] Progress Note-Nurseon 2022 Progress Note-Nurse Normal [facility] Progress Note-Physicianon Progress Note-Physician Normal [facility] Comment on above: Result Comment: Elec tronically Signed By: Javon Edwards DO.br\Date and Time Signed: 02/10/23 15:33 EDT eGFRon 02-10-2023 GFR/1.73 sq M.predicted among non-blacks MDRD (S/P/Bld) [Vol rate/Area] 97 mL/min/1.73 m2 Normal >=59 [facility] Comment on above: Order Comment: Order added by Discern Expert. Result Comment: Choral Director claus kidney disease could be indicated at eGFR's of less than 60 mL/min/1.73m2. Kidney failure is indicated at less than 15 mL/min/1.73m2. Performed By: #### 2 939824, 31307481, 8578532 ####[facility] [address] [place] [address] Auto Diffon 02-09-2023 Basophils/100 WBC (Bld) 0.7 % Normal 0.0-2.0 [facility] Comment on above: Order Comment: Order Added by Discern Expert. Performed By: #### 2 283443, 54746318, 1105251, 9496745, 6817857, 0427064 ####[place] [address] [place] [address] Basophils/Leukocytes Auto (Bld) [Pure # fraction] 0.0 E9/L Normal 0.0-0.2 [facility] Comment on above: Order Comment: Order Added by Discern Expert. Performed By: #### 2 237079, 51567097, 8199923, 0263010, 9916761, 4864710 ####[place] [address] [place] [address] Eosinophils/100 WBC (Bld) 7.4 % Normal 0.0-8.0 [facility] Comment on above: Order Comment: Order Added by Discern Expert. Performed By: #### 2 061412, 01899488, 8964865, 2107892, 3450721, 5140093 ####[address] [address] Eosinophils/Leukocyte s Auto (Bld) [Pure # fraction] 0.5 E9/L Normal 0.0-0.5 [facility] Comment on above: Order Comment: Order Added by Discern Expert. Performed By: #### 2 087412, 51618730, 2350692, 9584412, 1326576, 7744201 ####[address] [address] Lymphocytes/100 WBC (Bld) 28.1 % Normal 14.0-50.0 [facility] Comment on above: Order Comment: Order Added by Discern Expert. Performed By: #### 2 420144, 99817550, 4442976, 1795196, 2249388, 1219071 ####[place] [address] [place] [address] Lymphocytes/Leukocyte s Auto (Bld) [Pure # fraction] 2.0 E9/L Normal 1.0-4.0 [facility] Comment on above: Order Comment: Order Added by Discern Expert. Performed By: #### 2 668697, 51446708, 6314112, 6269635, 9794625, 1843901 ####[facility] [address] [place] [address] Monocytes/100 WBC (Bld) 14.2 % High 4.0-14.0 [facility] Comment on above: Order Comment: Order Added by Discern Expert. Performed By: #### 2 845285, 43535013, 3070199, 0857498, 2033863, 4732692 ####[facility] [address] [place] [address] Monocytes/Leukocytes Auto (Bld) [Pure # fraction] 1.0 E9/L Normal 0.2-1.0 [facility] Comment on above: Order Comment: Order Added by Frankie Expert. Performed By: #### 2 837600, 40566255, 2454458, 5169873, 6376483, 1641586 ####[place] [address] [place] [address] Neutrophils/100 WBC (Bld) 49.6 % Normal 36.0-75.0 [facility] Comment on above: Order Comment: Order Added by Discern Expert. Performed By: #### 2 118825, 45242353, 6265952, 4947633, 7437440, 4597311 ####[place] [address] [place] [address] Neutrophils/Leukocyte s Auto (Bld) [Pure # fraction] 3.5 E9/L Normal 2.0-7.5 [facility] Comment on above: Order Comment: Order Added by Discern Expert. Performed By: #### 2 198156, 67098231, 3670923, 3568206, 3778899, 8370526 ####[facility] [address] [place] [address] BUNon 02-09-2023 Urea nitrogen [Mass/Vol] 30 mg/dL High 5-21 [facility] Comment on above: Performed By: #### 2 430914, 63487828, 4278147, 5570597, 7603483, 4026996 ####[facility] [address] [place] [address] CBC w/ Auto Diffon 10-02-202 3 Erythrocyte distribution width (RBC) [Ratio] 17.1 % High 10.9-14.2 [facility] Comment on above: Performed By: #### 2 320087, 52208039, 3244924, 0799805, 3217736, 1828017 ####[facility] [address] [place] [address] Hematocrit (Bld) [Volume fraction] 23.9 % Low 37.7-49.0 [facility] Comment on above: Performed By: #### 2 247955, 00906421, 0189987, 1994428, 0972293, 3239286 ####[place] [address] [place] [address] Hemoglobin (Bld) [Mass/Vol] 7.8 g/dL Low 13.5-17.5 [facility] Comment on above: Performed By: #### 2 480871, 29503277, 4698735, 9579530, 8701871, 4646010 ####[facility] [address] [place] [address] MCH (RBC) [Entitic mass] 25.6 pg Low 27.0-34.0 [facility] Comment on above: Performed By: #### 2 457461, 35696582, 0196599, 9513622, 7226664, 4957390 ####[address] [address] MCHC (RBC) [Mass/Vol] 32.7 g/dL Normal 31.4-36.0 [facility] Comment on above: Performed By: #### 2 331456, 48320329, 6020920, 0768868, 5835933, 5624499 ####[address] [address] MCV (RBC) [Entitic vol] 78.2 fL Low 80.0-100.0 [facility] Comment on above: Performed By: #### 2 283879, 67952591, 1894128, 7794273, 2212765, 0069191 ####[facility] [address] [place] [address] Platelet mean volume (Bld) [Entitic vol] 8.0 fL Normal 6.4-10.8 [facility] Comment on above: Performed By: #### 2 702636, 55193537, 3372985, 9635971, 6110796, 7420811 ####[facility] [address] [place] [address] Platelets (Bld) [#/Vol] 298.0 E9/L Normal 150.0-500.0 [facility] Comment on above: Performed By: #### 2 637679, 51329699, 2356492, 3280240, 5659627, 2169219 ####[place] [address] [place] [address] RBC (Bld) [#/Vol] 3.0 E12/L Low 4.3-5.9 [facility] Comment on above: Performed By: #### 2 499456, 59726699, 3389756, 0066627, 0392439, 4270589 ####[place] [address] [place] [address] WBC corrected for nucl RBC Auto (Bld) [#/Vol] 7.1 E9/L Normal 4.0-11.0 [facility] Comment on above: Performed By: #### 2 353175, 57654921, 3536973, 7593596, 2277683, 5664343 ####[facility] [address] [place] [address] Capillary Glucose POCon 10-0 2-2022 Glucose [Mass/Vol] 218 mg/dL High 55-99 [facility] Comment on above: Result Comment: Mary COLLAZO Performed By: #### 2 93979261 ####[facility] [address] [place] [address] Glucose [Mass/Vol] 221 mg/dL High 55-99 [facility] Comment on above: Result Comment: Mary COLLAZO Performed By: #### 2 82541007 ####[facility] [address] [place] [address] Glucose [Mass/Vol] 191 mg/dL High 55-99 [facility] Comment on above: Result Comment: Mary flores RN/ Performed By: #### 2 41884648 ####[facility] [address] [place] [address] Glucose [Mass/Vol] 170 mg/dL High 55-99 [facility] Comment on above: Result Comment: Mary flores RN/ Performed By: #### 2 91429652 ####[facility] [address] [place] [address] Creatinineon 02-09-2023 Creatinine [Mass/Vol] 1.0 mg/dL Normal 0.5-1.3 [facility] Comment on above: Performed By: #### 2 083181, 47074572, 5202129, 1098492, 8258870, 1934635 ####[facility] [address] [place] [address] Interdisciplinary Note - Virgil e Manageron 02-09-2023 Interdisciplinary Note - Pharmacy Analyst [facility] Comment on above: Result Comment: Elec tronically Signed By: Franci Peace\.domenic\Date and Time Signed: 02/09/23 15:15 EDT Lyteson 02-09-2023 Anion gap [Moles/Vol] 13 mmol/L Normal 6-16 [facility] Comment on above: Performed By: #### 2 864396, 44139049, 5948538, 5944462, 2875759, 6601919 ####[facility] [address] [place] [address] Chloride [Moles/Vol] 110 mmol/L Normal 101-111 [facility] Comment on above: Performed By: #### 2 905748, 39343339, 2276604, 1819732, 8319174, 5480686 ####[facility] [address] [place] [address] CO2 [Moles/Vol] 24 mmol/L Normal 21-31 [facility] Comment on above: Performed By: #### 2 670150, 13154981, 7495287, 9826134, 1932605, 7484311 ####[facility] [address] [place] [address] Potassium [Moles/Vol] 3.8 mmol/L Normal 3.5-5.3 [facility] Comment on above: Performed By: #### 2 511631, 93643237, 8949863, 4991180, 9021409, 2212993 ####[facility] [address] [place] [address] Sodium [Moles/Vol] 143 mmol/L Normal 135-145 [facility] Comment on above: Performed By: #### 2 821853, 34228537, 4046037, 5089921, 0510079, 9714174 ####[facility] [address] [place] [address] Main OR Intraoperative Recor don 02-09-2023 Main OR Intraoperative Record Normal [facility] Progress Note - Pharmacyon 1 Progress Note - Pharmacy Normal [facility] Progress Note-Physicianon Progress Note-Physician Normal [facility] Comment on above: Result Comment: Elec tronically Signed By: Javon Edwards DO\Date and Time Signed: 02/09/23 11:40 EDT eGFRon 02-09-2023 GFR/1.73 sq M.predicted among non-blacks MDRD (S/P/Bld) [Vol rate/Area] 86 mL/min/1.73 m2 Normal >=59 [facility] Comment on above: Order Comment: Order added by Discern Expert. Result Comment: Choral Director claus kidney disease could be indicated at eGFR's of less than 60 mL/min/1.73m2. Kidney failure is indicated at less than 15 mL/min/1.73m2. Performed By: #### 2 681648, 75171558, 5020138, 1554793, 2942857, 4413746 ####[facility] [address] [place] [address] Capillary Glucose POCon 10-0 Glucose [Mass/Vol] 305 mg/dL High 55-99 [facility] Comment on above: Result Comment: Mary flores RN/ Performed By: #### 2 76104225 ####[facility] [address] [place] [address] Glucose [Mass/Vol] 216 mg/dL High 55-99 [facility] Comment on above: Result Comment: Mary flores RN/ Performed By: #### 2 24589687 ####[facility] [address] [place] [address] Glucose [Mass/Vol] 196 mg/dL High 55-99 [facility] Comment on above: Result Comment: Mary COLLAZO Performed By: #### 2 09551215 ####[facility] [address] [place] [address] Interdisciplinary Note - Virgil e Manageron 02-08-2023 Interdisciplinary Note - Pharmacy Analyst [facility] Comment on above: Result Comment: Elec tronically Signed By: Kamron HERBERT, Teagan\.br\Date and Time Signed: 02/08/23 14:24 EDT Auto Diffon 02-06-2023 Basophils/100 WBC (Bld) 0.2 % Normal 0.0-2.0 [facility] Comment on above: Order Comment: Order Added by Discern Expert. Performed By: #### 2 701560, 21514471, 7333386, 4111990, 2330741 ####[facility] [address] [place] [address] Basophils/Leukocytes Auto (Bld) [Pure # fraction] 0.0 E9/L Normal 0.0-0.2 [facility] Comment on above: Order Comment: Order Added by Discern Expert. Performed By: #### 2 604185, 54420690, 2220966, 7040305, 6065073 ####[facility] [address] [place] [address] Eosinophils/100 WBC (Bld) 0.0 % Normal 0.0-8.0 [facility] Comment on above: Order Comment: Order Added by Discern Expert. Performed By: #### 2 424751, 39467919, 1885713, 4279237, 8538039 ####[facility] [address] [place] [address] Eosinophils/Leukocyte s Auto (Bld) [Pure # fraction] 0.0 E9/L Normal 0.0-0.5 [facility] Comment on above: Order Comment: Order Added by Discern Expert. Performed By: #### 2 837189, 79175229, 1503277, 0206598, 2004106 ####[address] [address] Lymphocytes/100 WBC (Bld) 4.8 % Low 14.0-50.0 [facility] Comment on above: Order Comment: Order Added by Frankie Expert. Performed By: #### 2 153493, 65603768, 4545546, 8795052, 5828787 ####[address] [address] Lymphocytes/Leukocyte s Auto (Bld) [Pure # fraction] 0.5 E9/L Low 1.0-4.0 [facility] Comment on above: Order Comment: Order Added by Frankie Expert. Performed By: #### 2 766506, 28388708, 4878802, 7537625, 3346657 ####[address] [address] Monocytes/100 WBC (Bld) 10.4 % Normal 4.0-14.0 [facility] Comment on above: Order Comment: Order Added by Frankie Expert. Performed By: #### 2 666029, 44337389, 8324182, 0578408, 9874489 ####[address] [address] Monocytes/Leukocytes Auto (Bld) [Pure # fraction] 1.0 E9/L Normal 0.2-1.0 [facility] Comment on above: Order Comment: Order Added by Frankie Expert. Performed By: #### 2 190873, 15481548, 5867240, 4214493, 2734432 ####[facility] [address] [place] [address] Neutrophils/100 WBC (Bld) 84.6 % High 36.0-75.0 [facility] Comment on above: Order Comment: Order Added by Discern Expert. Performed By: #### 2 627396, 79309249, 5557356, 1884765, 8889462 ####[facility] [address] [place] [address] Neutrophils/Leukocyte s Auto (Bld) [Pure # fraction] 8.1 E9/L High 2.0-7.5 [facility] Comment on above: Order Comment: Order Added by Discern Expert. Performed By: #### 2 866304, 43899790, 9930690, 8360560, 9497251 ####[facility] [address] [place] [address] BMPon 02-06-2023 Creatinine [Mass/Vol] 2.2 mg/dL High 0.5-1.3 [facility] Comment on above: Performed By: #### 2 324891, 84816445, 1634454, 7244328, 2613754 ####[facility] [address] [place] [address] Anion gap [Moles/Vol] 15 mmol/L Normal 6-16 [facility] Comment on above: Performed By: #### 2 689610, 13915201, 2702423, 2290825, 6026199 ####[facility] [address] [place] [address] Calcium [Mass/Vol] 8.4 mg/dL Low 8.9-11.1 [facility] Comment on above: Performed By: #### 2 352836, 28036130, 5966671, 1733235, 2569676 ####[facility] [address] [place] [address] Chloride [Moles/Vol] 96 mmol/L Low 101-111 [facility] Comment on above: Performed By: #### 2 993419, 04828336, 6978618, 3002884, 9265344 ####[facility] [address] [place] [address] CO2 [Moles/Vol] 20 mmol/L Low 21-31 [facility] Comment on above: Performed By: #### 2 488613, 64133673, 9133716, 6600734, 2062590 ####[facility] [address] [place] [address] Glucose [Mass/Vol] 144 mg/dL Normal 55-199 [facility] Comment on above: Result Comment: If t his glucose result represents a fasting glucose, interpretation should refer to the following reference range: 55-99 mg/dL Performed By: #### 2 880686, 78973021, 4660826, 5029766, 4339227 ####[facility] [address] [place] [address] Potassium [Moles/Vol] 4.2 mmol/L Normal 3.5-5.3 [facility] - [place] Comment on above: Performed By: #### 2 578450, 68251333, 9839397, 2194909, 2431205 ####[facility] [address] [place] [address] Sodium [Moles/Vol] 127 mmol/L Low 135-145 [facility] Comment on above: Performed By: #### 2 892119, 39180980, 6697923, 5346714, 6654382 ####[facility] [address] [place] [address] Urea nitrogen [Mass/Vol] 56 mg/dL High 5-21 [facility] Comment on above: Performed By: #### 2 726046, 57622267, 3537366, 1819110, 2212856 ####[facility] [address] [place] [address] Urea nitrogen/Creatinine [Mass ratio] 26 No Units High 10-20 [facility] Comment on above: Performed By: #### 2 646324, 66007489, 2195897, 7335113, 0168736 ####[facility] [address] [place] [address] CBC w/ Auto Diffon 3 Erythrocyte distribution width (RBC) [Ratio] 16.7 % High 10.9-14.2 [facility] Comment on above: Performed By: #### 2 344757, 99710294, 1735176, 8581017, 8422194 ####[place] [address] [place] [id number] Hematocrit (Bld) [Volume fraction] 28.8 % Low 37.7-49.0 [facility] Comment on above: Performed By: #### 2 100972, 18526447, 2382481, 3800214, 5599713 ####[address] [address] Hemoglobin (Bld) [Mass/Vol] 9.7 g/dL Low 13.5-17.5 [facility] Comment on above: Performed By: #### 2 763280, 37068642, 7640973, 4139540, 1191272 ####[address] [address] MCH (RBC) [Entitic mass] 26.0 pg Low 27.0-34.0 [facility] Comment on above: Performed By: #### 2 697772, 24760179, 9691579, 9399504, 6970179 ####[address] [address] MCHC (RBC) [Mass/Vol] 33.7 g/dL Normal 31.4-36.0 [facility] [place] Comment on above: Performed By: #### 2 512481, 04987998, 3941401, 2702868, 8412232 ####[address] [address] MCV (RBC) [Entitic vol] 77.1 fL Low 80.0-100.0 [facility] Comment on above: Performed By: #### 2 150278, 14027948, 7140922, 0287649, 5970300 ####[facility] [address] [place] [address] Platelet mean volume (Bld) [Entitic vol] 9.0 fL Normal 6.4-10.8 [facility] Comment on above: Performed By: #### 2 844188, 45983715, 7809800, 8376859, 0449754 ####[address] [address] Platelets (Bld) [#/Vol] 187.0 E9/L Normal 150.0-500.0 [facility] Comment on above: Performed By: #### 2 082621, 26565482, 7609231, 9373001, 5764050 ####[address] [address] RBC (Bld) [#/Vol] 3.7 E12/L Low 4.3-5.9 [facility] Comment on above: Performed By: #### 2 085276, 06731512, 2179902, 4781345, 8949411 ####[address] [address] WBC corrected for nucl RBC Auto (Bld) [#/Vol] 9.6 E9/L Normal 4.0-11.0 [facility] Comment on above: Performed By: #### 2 123187, 85592989, 2928754, 6319962, 0345214 ####[address] [address] Capillary Glucose POCon 01-10 Glucose [Mass/Vol] 167 mg/dL High 55-99 [facility] Comment on above: Result Comment: Mary COLLAZO Performed By: #### 2 69083762 ####[address] [address] Glucose [Mass/Vol] 161 mg/dL High 55-99 [facility] Comment on above: Result Comment: Mary COLLAZO Performed By: #### 2 [id number] ####[address] [place] [address] Consent for Procedure/Surger yon 02-06-2023 Consent for Procedure/Surgery [id number]:127 Normal [facility] Consultation Noteon 02-07-20 Consultation Note Normal [facility] Comment on above: Result Comment: Elec tronically Signed By: Santos Epperson DPM R\.br\Date and Time Signed: 02/06/23 11:56 EDT Consultation Note Normal [facility] Comment on above: Result Comment: Elec tronically Signed By: Santos Epperson DPM\.br\Date and Time Signed: 02/06/23 09:48 EDT Consultation Note Normal [facility] Comment on above: Result Comment: Elec tronically Signed By: Ronaldo Arcos M.D\.br\Date and Time Signed: 02/06/23 09:35 EDT Interdisciplinary Note - Virgil e Manageron 02-06-2023 Interdisciplinary Note - Pharmacy Analyst Normal [facility] Comment on above: Result Comment: Elec tronically Signed By: Franci Peace\.br\Date and Time Signed: 02/06/23 15:22 EDT Lactic Acidon 02-06-2023 Lactate [Mass/Vol] 1.1 mmol/L Normal 0.5-2.2 [facility] Comment on above: Order Comment: The s pecimen for this test has been found unacceptable due to hemolysis as determined by SW.Micheline Cummins and Berna were contacted and the following determination was made to redraw the patient. Performed By: #### 2 006811, 26944033, 0590125, 6252443, 5778382 ####[facility] [address] [place] [address] Main OR PACU I Recordon 01-10 Main OR PACU I Record Normal [facility] Progress Note-Physicianon Progress Note-Physician Normal [facility] Comment on above: Result Comment: Elec tronically Signed By: Irineo Gonzalez Jr., DO\.br\Date and Time Signed: 02/06/23 12:03 EDT Progress Note-Physician Normal [facility] Comment on above: Result Comment: Elec tronically Signed By: Irineo Gonzalez Jr., DO\.br\Date and Time Signed: 02/06/23 09:44 EDT Progress Note-Physician Normal [facility] Comment on above: Result Comment: Elec tronically Signed By: Mimi COLIN MD\.br\Date and Time Signed: 02/06/23 09:38 EDT eGFRon 02-06-2023 GFR/1.73 sq M.predicted among non-blacks MDRD (S/P/Bld) [Vol rate/Area] 33 mL/min/1.73 m2 Low >=59 [facility] Comment on above: Order Comment: Order added by Discern Expert. Result Comment: Choral Director claus kidney disease could be indicated at eGFR's of less than 60 mL/min/1.73m2. Kidney failure is indicated at less than 15 mL/min/1.73m2. Performed By: #### 2 896837, 65177458, 9286831, 5858147, 8747647 ####[facility] [address] [place] [address] Auto Diffon 02-05-2023 Basophils/100 WBC (Bld) 0.2 % Normal 0.0-2.0 [facility] Comment on above: Order Comment: Order Added by Discern Expert. Performed By: #### 2 722333, 8330796, 1394537, 85009063, 81929796, 20550040, 1426279 ####[facility] [address] [place] [address] Basophils/Leukocytes Auto (Bld) [Pure # fraction] 0.0 E9/L Normal 0.0-0.2 [facility] Comment on above: Order Comment: Order Added by Discern Expert. Performed By: #### 2 172145, 4150628, 1488928, 13871566, 17353944, 00929286, 4645262 ####[facility] [address] [place] [address] Eosinophils/100 WBC (Bld) 0.1 % Normal 0.0-8.0 [facility] Comment on above: Order Comment: Order Added by Discern Expert. Performed By: #### 2 862983, 0746760, 0790390, 09528812, 08769864, 23710718, 8130793 ####[facility] [address] [place] [address] Eosinophils/Leukocyte s Auto (Bld) [Pure # fraction] 0.0 E9/L Normal 0.0-0.5 [facility] Comment on above: Order Comment: Order Added by Discern Expert. Performed By: #### 2 642103, 0550461, 5790942, 80549932, 83402188, 32507782, 6964188 ####[address] [address] Lymphocytes/100 WBC (Bld) 3.7 % Low 14.0-50.0 [facility] Comment on above: Order Comment: Order Added by Discern Expert. Performed By: #### 2 429436, 4901806, 0127894, 67457618, 17333203, 69049432, 2544732 ####[address] [address] Lymphocytes/Leukocyte s Auto (Bld) [Pure # fraction] 0.5 E9/L Low 1.0-4.0 [facility] Comment on above: Order Comment: Order Added by Discern Expert. Performed By: #### 2 137956, 2578702, 0233189, 90820931, 05213516, 60161613, 8124129 ####[address] [place] [address] Monocytes/100 WBC (Bld) 8.2 % Normal 4.0-14.0 [facility] Comment on above: Order Comment: Order Added by Frankie Expert. Performed By: #### 2 282002, 2126115, 0987066, 29457936, 98839531, 61131737, 3620710 ####[address] [address] Monocytes/Leukocytes Auto (Bld) [Pure # fraction] 1.2 E9/L High 0.2-1.0 [facility] Comment on above: Order Comment: Order Added by Discern Expert. Performed By: #### 2 702089, 0054934, 8292078, 47032255, 59549155, 80654690, 1005053 ####[facility] [address] [place] [address] Neutrophils/100 WBC (Bld) 87.8 % High 36.0-75.0 [facility] Comment on above: Order Comment: Order Added by Discern Expert. Performed By: #### 2 097580, 5770825, 6485294, 94421335, 04013655, 80502273, 9644666 ####[address] [place] [address] Neutrophils/Leukocyte s Auto (Bld) [Pure # fraction] 13.2 E9/L High 2.0-7.5 [facility] Comment on above: Order Comment: Order Added by Discern Expert. Performed By: #### 2 286202, 6652890, 0026270, 25368682, 37068709, 57189801, 2790729 ####[facility] [address] [place] [address] BMPon 02-05-2023 Creatinine [Mass/Vol] 3.1 mg/dL High 0.5-1.3 [facility] [place] Comment on above: Performed By: #### 2 759088, 5361406, 6367078, 40497478, 92744192, 22806159, 2546649 ####[facility] [address] [place] [address] Urea nitrogen [Mass/Vol] 63 mg/dL High 5-21 [facility] Comment on above: Performed By: #### 2 296820, 3682689, 4586799, 47620527, 07655430, 13518594, 8334527 ####[facility] [address] [place] [address] Urea nitrogen/Creatinine [Mass ratio] 20 No Units Normal 10-20 [facility] Comment on above: Performed By: #### 2 688830, 3322290, 1201628, 24122063, 02039603, 18651513, 8584819 ####[facility] [address] [place] [address] Anion gap [Moles/Vol] 21 mmol/L High 6-16 [facility] [place] Comment on above: Performed By: #### 2 266916, 3381659, 4566761, 40896863, 51219315, 73696853, 0646804 ####[facility] [address] [place] [address] Calcium [Mass/Vol] 8.5 mg/dL Low 8.9-11.1 [facility] Comment on above: Performed By: #### 2 072264, 8719160, 6707213, 70281601, 53444327, 81716047, 6076751 ####[facility] [address] [place] [address] Chloride [Moles/Vol] 92 mmol/L Low 101-111 [facility] Comment on above: Performed By: #### 2 441774, 9715686, 9676422, 10104155, 12400574, 04924581, 3336384 ####[facility] [address] [place] [address] CO2 [Moles/Vol] 20 mmol/L Low 21-31 [facility] Comment on above: Performed By: #### 2 410324, 6336534, 5338183, 88926177, 55874418, 84794592, 2948500 ####[facility] [address] [place] [address] Glucose [Mass/Vol] 141 mg/dL Normal 55-199 [facility] Comment on above: Result Comment: If t his glucose result represents a fasting glucose, interpretation should refer to the following reference range: 55-99 mg/dL Performed By: #### 2 990750, 2837770, 3432628, 18635592, 46977318, 20993562, 1415186 ####[facility] [address] [place] [address] Potassium [Moles/Vol] 4.8 mmol/L Normal 3.5-5.3 [facility] [place] Comment on above: Performed By: #### 2 918363, 2965720, 5327692, 23962333, 14540961, 13610830, 9207030 ####[facility] [address] [place] [address] Sodium [Moles/Vol] 128 mmol/L Low 135-145 [facility] Comment on above: Performed By: #### 2 845077, 9751851, 5014356, 35439538, 11879867, 82786138, 0669669 ####[address] [place] [address] BNPon 02-05-2023 Int Ctr BNP Pass Normal [facility] Comment on above: Performed By: #### 1 0462028 ####[address] [place] [address] Natriuretic peptide B (Bld) [Mass/Vol] 49 pg/mL Normal 5-80 [facility] Comment on above: Performed By: #### 1 1466729 ####[address] [address] CBC w/ Auto Diffon 3 Erythrocyte distribution width (RBC) [Ratio] 16.9 % High 10.9-14.2 [facility] Comment on above: Performed By: #### 2 402796, 0123941, 8699663, 08780443, 38933900, 59906948, 7676317 ####[address] [place] [address] Hematocrit (Bld) [Volume fraction] 29.5 % Low 37.7-49.0 [facility] Comment on above: Performed By: #### 2 874222, 6331165, 0513393, 31728106, 28582509, 86304222, 6384396 ####[facility] [address] [place] [address] Hemoglobin (Bld) [Mass/Vol] 9.4 g/dL Low 13.5-17.5 [facility] Comment on above: Performed By: #### 2 346929, 6221102, 3597405, 40358960, 55119365, 99242169, 8385691 ####[address] [place] [address] MCH (RBC) [Entitic mass] 25.1 pg Low 27.0-34.0 [facility] Comment on above: Performed By: #### 2 520967, 2259746, 0413028, 62656658, 80450983, 46034776, 2816713 ####[address] [address] MCHC (RBC) [Mass/Vol] 31.8 g/dL Normal 31.4-36.0 [facility] [place] Comment on above: Performed By: #### 2 754087, 9224533, 4210378, 58371319, 03586423, 73977537, 2904860 ####[address] [address] MCV (RBC) [Entitic vol] 78.8 fL Low 80.0-100.0 [facility] Comment on above: Performed By: #### 2 451978, 9742400, 4664230, 19120363, 99925143, 47827499, 8942094 ####[address] [place] [address] Platelet mean volume (Bld) [Entitic vol] 10.0 fL Normal 6.4-10.8 [facility] Comment on above: Performed By: #### 2 288844, 4973098, 3733815, 90464432, 29009859, 70571770, 4392306 ####[address] [address] Platelets (Bld) [#/Vol] 186.0 E9/L Normal 150.0-500.0 [facility] Comment on above: Performed By: #### 2 631438, 7212468, 5411254, 43835459, 65180881, 81277430, 2907491 ####[facility] [address] [place] [address] RBC (Bld) [#/Vol] 3.8 E12/L Low 4.3-5.9 [facility] Comment on above: Performed By: #### 2 264482, 1156179, 7913797, 12879485, 68064910, 92141366, 8390950 ####[facility] [address] [place] [address] WBC corrected for nucl RBC Auto (Bld) [#/Vol] 15.0 E9/L High 4.0-11.0 [facility] Comment on above: Performed By: #### 2 235668, 1480191, 3318147, 51658161, 16240057, 26589047, 3386563 ####[facility] [address] [place] [address] Capillary Glucose POCon 01-10 Glucose [Mass/Vol] 197 mg/dL High 55-99 [facility] Comment on above: Performed By: #### 2 95964834 ####[facility] [address] [place] [address] Glucose [Mass/Vol] 149 mg/dL High 55-99 [facility] Comment on above: Performed By: #### 2 82382353 ####[facility] [address] [place] [address] Consent for Treatmenton 01-10 Consent for Treatment [id number]#[id number]:127 Normal [facility] ED Note-Physicianon 02-06-20 ED Note-Physician Normal [facility] Comment on above: Result Comment: Elec tronically Signed By: Everardo Puckett PA-C\.br\Date and Time Signed: 02/05/23 16:10 EDT\.br\Electronically Co-Signed By: Lucia Noyola M.D.\.br\Date and Time Co-Signed: 02/05/23 16:35 EDT [employer] Video[employer] Video Yes Patient Avoiding Infections in the Hospital Normal [facility] Lactic Acidon 02-05-2023 Lactate [Mass/Vol] 4.5 mmol/L High 0.5-2.2 [facility] Comment on above: Performed By: #### 2 530579, 4390760, 2493302, 09066720, 05867700, 99305511, 7533179 ####[facility] [address] [place] [address] MRI Foot w/o Contrast Righto n 02-05-2023 MRI Foot w/o Contrast Right Normal [facility] PT & PTTon 02-05-2023 aPTT Coag (PPP) [Time] 39.3 second(s) High 25.1-36.5 [facility] Comment on above: Result Comment: Para meter 15 days - 4 weeks 1 - 5 months 6 - 11 months 1 - 5 years 6 - 10 years 11 - 17 years PTT Mean: 35.4 (27.6-45.6) Mean: 33.5 (24.8-40.7) Mean: 32.4 (25.1-40.7) Mean: 31.6 (24.0-39.2) Mean: 31.6 (26.9-38.7) Mean: 31.0 (24.6-38.4) Pediatric Reference ranges were obtained from a study by Jose Juan Olguin et al. prepared from 1437 samples obtained at 7 different centers using the same coagulation reagent and instrumentation as [facility]. Currently there are no coagulation studies available worldwide for children to 14 days, and no normal ranges. Heparin therapeutic range (represented by Anti-Factor Xa activity of 0.2 - 0.4 U/mL) corresponds to PTT of 56.6 - 109.0 sec. Performed By: #### 2 721903, 7979560, 8179522, 57234827, 20554829, 70021308, 1924309 ####[facility] [address] [place] [address] INR Coag (PPP) [Relative time] 1.2 {INR} Invalid Interpretation Code [facility] Comment on above: Result Comment: INR results are specifically intended to assess patients stabilized on long-term Anticoagulation therapy suggested INR?s ?Less Intensive Anticoagulation? 2.0 ? 3.0Conventional Range 3.0 ? 4.5 Performed By: #### 2 557548, 7036328, 0428804, 65992060, 75511316, 55549382, 0968515 ####[facility] [address] [place] [address] PT Coag (PPP) [Time] 13.5 second(s) High 9.4-12.5 [facility] Comment on above: Result Comment: 15 d ays - 4 weeks 1 - 5 months 6 -11 months 1- 5 years 6-10 years 11 -17 years Mean: 11.2 (9.5-12.6) Mean: 11.0 (9.7-12.8) Mean: 11.0 (9.8-13.0) Mean: 11.3 (9.9-13.4) Mean: 11.7 (10.0-14.6) Mean: 11.8 (10.0 - 14.1) Pediatric Reference ranges were obtained from a study by Jose Juan Olguin et al. prepared from 1437 samples obtained at 7 different centers using the same coagulation reagent and instrumentation as [facility]. Currently there are no coagulation studies available worldwide for children to 14 days, and no normal ranges. Performed By: #### 2 940240, 8001413, 4229656, 44392868, 60090596, 52745004, 6461330 ####[facility] [address] [place] [address] Physician Orderon 02-05-2023 Physician Order [id number]#[id number]:127 Normal [facility] Progress Note - Pharmacyon 0 02-05-2023 Progress Note - Pharmacy Normal [facility] Progress Note-Physicianon Progress Note-Physician Normal [facility] Comment on above: Result Comment: Elec tronically Signed By: Stepan GILBERT, Raquel\.domenic\Date and Time Signed: 02/05/23 20:16 EDT RAD - MRI Screening Formon 0 02-05-2023 RAD - MRI Screening Form [id number]#[id number]:127 Normal [facility] Troponin 0 Hr.on 02-05-2023 Troponin I.cardiac [Mass/Vol] 12.10 pg/mL Low 15.90-38.40 [facility] Comment on above: Result Comment: The 95% CI (Confidence Interval) PPV (Positive Predictive Value) for myocardial infarction in females is 38 pg/mL, in males 51 pg/mL. The results should be used in conjunction with clinical conditions of myocardial infarction.(Access High Sensitivity Troponin I Instructions For Use, [employer], December 2017) Performed By: #### 2 778565, 7919470, 0538826, 78689576, 22122691, 29061093, 0579015 ####[facility] [address] [place] [address] XR Chest Single Viewon 02-05 XR Chest Single View Normal [facility] eGFRon 02-05-2023 GFR/1.73 sq M.predicted among non-blacks MDRD (S/P/Bld) [Vol rate/Area] 22 mL/min/1.73 m2 Low >=59 [facility] Comment on above: Order Comment: Order added by Discern Expert. Result Comment: Choral Director claus kidney disease could be indicated at eGFR's of less than 60 mL/min/1.73m2. Kidney failure is indicated at less than 15 mL/min/1.73m2. Performed By: #### 2 626140, 2766231, 4510670, 73385991, 25385798, 91166534, 2828424 ####[facility] [address] [place] [address] Nursing Assessment - Woundon 02-04-2023 Nursing Assessment - Wound [id number]#1.00CD:127 Normal [facility] Nursing Note - Woundon 02-04 Nursing Note - Wound [id number]#1.00CD:127 Normal [facility] ED Note-Physicianon 02-03-20 ED Note-Physician [facility] Comment on above: Result Comment: Elec tronically Signed By: Jeffrey GILBERT, Omar\.br\Date and Time Signed: 02/02/23 02:20 EDT\.br\Electronically Co-Signed By: Jabier Martin PA-C\.br\Date and Time Co-Signed: 01/10/23 15:59 EDT C Blood Charcoalon Blood Culture Charcoal [facility] Comment on above: Performed By: #### 1 [id number] ####[facility] [address] [place] [address] Discharge Instructionson Discharge Instructions [id number]#[id number]:127 [facility] General Message Officeon General Message Office [facility] CHEMISTRYOrdered By: Lab ROP User on 01-15-2023 Glucose [Mass/Vol] 148 mg/dL High 55 - 99 mg/dL [facility] POC Subsection Comment on above: Result Comment: Mary COLLAZO POC Device SN [id number] Invalid Interpretation Code [facility] POC Subsection POC User ID [id number] Invalid Interpretation Code [facility] POC Subsection POC Username EMERITA FAM Invalid Interpretation Code [facility] POC Subsection Capillary Glucose POCon Glucose [Mass/Vol] 148 mg/dL High 55-99 [facility] Comment on above: Result Comment: Mary COLLAZO Performed By: #### 2 [id number] ####[facility] [address] [place] [place] [address] Coding Queryon 01-15-2023 Coding Query [facility] Discharge Note-Nursingon Discharge Note-Nursing Normal [facility] Inpatient Clinical Summaryon 01-15-2023 Inpatient Clinical Summary Normal [facility] Inpatient Patient Summaryon 01-15-2023 Inpatient Patient Summary Normal [facility] Interdisciplinary Note - Virgil e Manageron 01-15-2023 Interdisciplinary Note - Pharmacy Analyst [facility] Comment on above: Result Comment: Elec tronically Signed By: Kamron HERBERT, Teagan\.br\Date and Time Signed: 01/15/23 11:18 EDT Interdisciplinary Note - Avinash singon 01-15-2023 Interdisciplinary Note - Nursing 0326H - patient was refusing fall risk precaution and reinforced importance of placing the bed alarm, and non slip socks. Despite reeducating, the patient was still upset. Noted regarding the refusal of fall risk. Normal [facility] Monitor Recordon 01-15-2023 Monitor Record [id number]#[id number]:127 [facility] Monitor Record [id number]#[id number]:127 [facility] Progress Note-Nurseon 2022 Progress Note-Nurse Patient educated on risks of fall and precautions, patient refusing bed alarm and fall precautions. Charge nurse Fernando cerna. [facility] C Woundon 01-14-2023 Wound Culture [facility] Comment on above: Performed By: #### 2 698423 ####[facility] [address] [place] [address] CHEMISTRYOrdered By: Lab ROP User on 01-14-2023 Glucose [Mass/Vol] 174 mg/dL High 55 - 99 mg/dL [facility] POC Subsection Comment on above: Result Comment: Mary flores RN/ POC Device SN [id number] Invalid Interpretation Code [facility] POC Subsection POC User ID [id number] Invalid Interpretation Code [facility] POC Subsection POC Username MAGAN THOMASON Invalid Interpretation Code [facility] POC Subsection Glucose [Mass/Vol] 150 mg/dL High 55 - 99 mg/dL [facility] POC Subsection Comment on above: Result Comment: Mary COLLAZO POC Device SN [id number] Invalid Interpretation Code [facility] POC Subsection POC User ID [id number] Invalid Interpretation Code [facility] POC Subsection POC Username NEFTALY NEAL Invalid Interpretation Code [facility] POC Subsection CHEMISTRYOrdered By: SYSTEM SYSTEM on 01-14-2023 Vancomycin trough [Moles/Vol] 17 microgram/mL Normal 10 - 20 mcg/mL [facility] Remisol Capillary Glucose POCon Glucose [Mass/Vol] 174 mg/dL High 55-99 [facility] Comment on above: Result Comment: Mary COLLAZO Performed By: #### 2 [id number] ####[facility] [address] [facility] [address] Glucose [Mass/Vol] 150 mg/dL High 55-99 [facility] Comment on above: Result Comment: Mary COLLAZO Performed By: #### 2 [id number] ####[facility] [address] [facility] [address] Glucose [Mass/Vol] 161 mg/dL High 55-[address] [place] [address] Comment on above: Result Comment: Mary COLLAZO Performed By: #### 2 [id number] ####[facility] [address] [facility] [address] Glucose [Mass/Vol] 183 mg/dL High 55-99 [facility] Comment on above: Result Comment: Mary COLLAZO Performed By: #### 2 [id number] ####[facility] [address] [place] [address] Interdisciplinary Note - Virgil e Manageron 01-14-2023 Interdisciplinary Note - Pharmacy Analyst [facility] Comment on above: Result Comment: Elec tronically Signed By: Teagan Lundy RN\.br\Date and Time Signed: 01/14/23 09:37 EDT Interdisciplinary Note - Pharmacy Analyst [facility] Comment on above: Result Comment: Elec tronically Signed By: Teagan Lundy RN\.br\Date and Time Signed: 01/14/23 09:33 EDT Other Comment: wrong chart Monitor Recordon 01-14-2023 Monitor Record [id number]#[id number]:127 Normal [facility] Monitor Record [id number]#1.00CD:127 Normal [facility] Monitor Record [id number]#1.00CD:127 Normal [facility] Monitor Record [id number]#1.00CD:127 Normal [facility] Progress Note - Pharmacyon 0 01-14-2023 Progress Note - Pharmacy Normal [facility] Progress Note-Physicianon Progress Note-Physician Normal [facility] Comment on above: Result Comment: Elec tronically Signed By: Javon Edwards DObr\Date and Time Signed: 01/14/23 14:53 EDT Vanco Troughon 01-14-2023 VANCOMYCIN 17 microgram/mL Normal 10-20 [facility] Comment on above: Performed By: #### 2 [id number] ####[facility] [address] [place] [address] BMPon 01-13-2023 Anion gap [Moles/Vol] 9 mmol/L Normal 6-16 [facility] Comment on above: Performed By: #### 2 [id number], [id number] ####[facility] [address] [place] [address] Calcium [Mass/Vol] 8.6 mg/dL Low 8.9-11.1 [facility] Comment on above: Performed By: #### 2 [id number], [id number] ####[facility] [address] [place] [place] [address] Chloride [Moles/Vol] 107 mmol/L Normal 101-111 [facility] Comment on above: Performed By: #### 2 209445, [id number] ####[facility] [address] [place] [address] CO2 [Moles/Vol] 28 mmol/L Normal 21-31 [facility] Comment on above: Performed By: #### 2 365625, [id number] ####[facility] [address] [place] [address] Creatinine [Mass/Vol] 1.1 mg/dL Normal 0.5-1.3 [facility] Comment on above: Performed By: #### 2 012471, [id number] ####[facility] [address] [place] [address] Glucose [Mass/Vol] 165 mg/dL Normal 55-199 [facility] Comment on above: Result Comment: If t his glucose result represents a fasting glucose, interpretation should refer to the following reference range: 55-99 mg/dL Performed By: #### 2 166553, [id number] ####[facility] [address] [place] [address] Potassium [Moles/Vol] 3.3 mmol/L Low 3.5-5.3 [facility] Comment on above: Performed By: #### 2 859916, [id number] ####[facility] [address] [place] [address] Sodium [Moles/Vol] 141 mmol/L Normal 135-145 [facility] Comment on above: Performed By: #### 2 509443, [id number] ####[facility] [address] [place] [address] Urea nitrogen [Mass/Vol] 25 mg/dL High 5-21 [facility] Comment on above: Performed By: #### 2 277608, [id number] ####[facility] [address] [place] [address] Urea nitrogen/Creatinine [Mass ratio] 23 No Units High 10-20 [facility] Comment on above: Performed By: #### 2 655011, [id number] ####[facility] [address] [place] [address] CHEMISTRYOrdered By: SYSTEM SYSTEM on 01-13-2023 Anion gap [Moles/Vol] 9 mmol/L Normal 6 - 16 mEq/L [facility] Remisol Calcium [Mass/Vol] 8.6 mg/dL Low 8.9 - 11. 1 mg/dL [facility] Remisol Chloride [Moles/Vol] 107 mmol/L Normal 101 - 1 11 mmol/L [facility] Remisol CO2 [Moles/Vol] 28 mmol/L Normal 21 - 31 mmol/L [facility] Remisol Creatinine [Mass/Vol] 1.1 mg/dL Normal 0.5 - 1.3 mg/dL [facility] Remisol GFR/1.73 sq M.predicted among non-blacks MDRD (S/P/Bld) [Vol rate/Area] 76 mL/min/1.73 m2 Normal >=59mL/min/1 .73 m2 [facility] Chem S Glucose [Mass/Vol] 165 mg/dL Normal 55 - 199 mg/dL [facility] Remisol Potassium [Moles/Vol] 3.3 mmol/L Low 3.5 - 5.3 mmol/L [facility] Remisol Sodium [Moles/Vol] 141 mmol/L Normal 135 - 145 mmol/L [facility] Remisol Urea nitrogen [Mass/Vol] 25 mg/dL High 5 - 21 mg/dL [facility] Remisol Urea nitrogen/Creatinine [Mass ratio] 23 mg/mg High 10 - 20 [facility] Remisol Capillary Glucose POCon Glucose [Mass/Vol] 167 mg/dL High 55-99 [facility] Comment on above: Result Comment: Mary flores RN/ Performed By: #### 2 [id number] ####[facility] [address] [place] [address] Glucose [Mass/Vol] 169 mg/dL High 55- [facility] Comment on above: Result Comment: Mary COLLAZO Performed By: #### 2 [id number] ####[facility] [address] [place] [address] Glucose [Mass/Vol] 240 mg/dL High 55-99 [facility] Comment on above: Result Comment: Mary flores RN/ Performed By: #### 2 [id number] ####[facility] [address] [place] [address] Glucose [Mass/Vol] 140 mg/dL High 55- [facility] Comment on above: Result Comment: Noti fied RN/MDCleaned Meter Performed By: #### 2 [id number] ####[facility] [address] [place] [address] Consultation Noteon 01-14-20 Consultation Note [facility] Comment on above: Result Comment: Elec tronically Signed By: Ronaldo Arcos M.D\.br\Date and Time Signed: 01/13/23 14:03 EDT Consultation Note Normal [facility] Comment on above: Result Comment: Elec tronically Signed By: Santos Epperson DPM\.br\Date and Time Signed: 01/13/23 09:01 EDT Interdisciplinary Note - Virgil e Manageron 01-13-2023 Interdisciplinary Note - Pharmacy Analyst [facility] Comment on above: Result Comment: Elec tronically Signed By: Valentina Peoples\.br\Date and Time Signed: 01/13/23 15:02 EDT Message from Medicareon Message from Medicare [id number]#1.00CD:127 Normal [facility] Monitor Recordon 01-13-2023 Monitor Record [id number]#1.00CD:127 Normal [facility] Monitor Record [id number]#1.00CD:127 Normal [facility] Progress Note-Physicianon Progress Note-Physician [facility] Comment on above: Result Comment: Elec tronically Signed By: Javon Edwards DObr\Date and Time Signed: 01/13/23 13:58 EDT eGFRon 01-13-2023 GFR/1.73 sq M.predicted among non-blacks MDRD (S/P/Bld) [Vol rate/Area] 76 mL/min/1.73 m2 Normal >=59 [facility] Comment on above: Order Comment: Order added by Discern Expert. Result Comment: Choral Director claus kidney disease could be indicated at eGFR's of less than 60 mL/min/1.73m2. Kidney failure is indicated at less than 15 mL/min/1.73m2. Performed By: #### 2 002762, [id number] ####[facility] [address] [place] [address] CHEMISTRYOrdered By: SYSTEM SYSTEM on 01-12-2023 Vancomycin trough [Moles/Vol] 16 microgram/mL Normal 10 - 20 mcg/mL [facility] Remisol Vancomycin peak [Moles/Vol] 27 microgram/mL Normal 20 - 40 mcg/mL [facility] Remisol Capillary Glucose POCon Glucose [Mass/Vol] 164 mg/dL High 55-99 [facility] Comment on above: Result Comment: Mary flores RN/ Performed By: #### 2 [id number] ####[address] [address] Glucose [Mass/Vol] 192 mg/dL High 55-[address] [place] [address] Comment on above: Result Comment: Mary COLLAZO Performed By: #### 2 [id number] ####[address] [address] Glucose [Mass/Vol] 177 mg/dL High [address] [place] [address] Comment on above: Result Comment: Mary COLLAZO Performed By: #### 2 [id number] ####[address] [address] Glucose [Mass/Vol] 178 mg/dL High [address] [place] [address] Comment on above: Result Comment: Mary COLLAZO Performed By: #### 2 [id number] ####[address] [place] [address] [id number] 01-12-2023 HbA1c (Bld) [Mass fraction] 7.7 % High <=5.9 [facility] Comment on above: Performed By: #### 7 [id number], 67133668, 3971018, 8434825, 5079003 ####[facility] [address] [place] [address] Monitor Recordon 01-12-2023 Monitor Record [id number]#1.00CD:127 Normal [facility] Monitor Record [id number]#1.00CD:127 Normal [facility] Progress Note - Pharmacyon 0 01-12-2023 Progress Note - Pharmacy Normal [facility] Progress Note-Physicianon Progress Note-Physician Normal [facility] Comment on above: Result Comment: Elec tronically Signed By: Javon Edwards DO\Date and Time Signed: 01/12/23 13:16 EDT Vanco Peakon 01-12-2023 VANCOMYCIN 27 microgram/mL Normal 20-40 [facility] Comment on above: Order Comment: Kassie crowley drawn Vancomycin Peak 1 hour after the completion of the 2100 dose on 01/11/23. Thank you.vanco was just disconnected @ 2300. will draw @ 0000. [id number] 01/11/2023 23:17:42 EDT Performed By: #### 2 [id number] ####[facility] [address] [place] [address] Vanco Troughon 01-12-2023 VANCOMYCIN 16 microgram/mL Normal 10-20 [facility] Comment on above: Order Comment: NOTE: Trough is scheduled 1 hour prior to next dose. Thank you. Performed By: #### 2 460328 ####[facility] [address] [place] [address] Auto Diffon 01-11-2023 Basophils/100 WBC (Bld) 0.8 % Normal 0.0-2.0 [facility] Comment on above: Order Comment: Order Added by Discern Expert. Performed By: #### 7 [id number], 80506095, 5571704, 0469714, 1921968 ####[facility] [address] [place] [address] Basophils/Leukocytes Auto (Bld) [Pure # fraction] 0.0 E9/L Normal 0.0-0.2 [facility] Comment on above: Order Comment: Order Added by Discern Expert. Performed By: #### 7 [id number], 53234285, 7452317, 4563466, 8883111 ####[facility] [address] [place] [address] Eosinophils/100 WBC (Bld) 1.7 % Normal 0.0-8.0 [facility] Comment on above: Order Comment: Order Added by Discern Expert. Performed By: #### 7 45038799, 60957620, 0601378, 7898941, 6363501 ####[address] [place] [address] Eosinophils/Leukocyte s Auto (Bld) [Pure # fraction] 0.1 E9/L Normal 0.0-0.5 [facility] Comment on above: Order Comment: Order Added by Discern Expert. Performed By: #### 7 84240796, 76093897, 2762187, 8326317, 1095472 ####[address] [address] Lymphocytes/100 WBC (Bld) 25.1 % Normal 14.0-50.0 [facility] Comment on above: Order Comment: Order Added by Discern Expert. Performed By: #### 7 44029078, 36989131, 2628524, 8653881, 3552904 ####[address] [address] Lymphocytes/Leukocyte s Auto (Bld) [Pure # fraction] 1.5 E9/L Normal 1.0-4.0 [facility] Comment on above: Order Comment: Order Added by Discern Expert. Performed By: #### 7 03412088, 04280548, 9310801, 7683099, 0490464 ####[address] [place] [address] Monocytes/100 WBC (Bld) 9.2 % Normal 4.0-14.0 [facility] Comment on above: Order Comment: Order Added by Discern Expert. Performed By: #### 7 [id number], 74344110, 0842634, 0765475, 3091919 ####[address] [address] Monocytes/Leukocytes Auto (Bld) [Pure # fraction] 0.5 E9/L Normal 0.2-1.0 [facility] Comment on above: Order Comment: Order Added by Discern Expert. Performed By: #### 7 85842148, 14096858, 8107323, 9999654, 3193783 ####[address] [place] [address] Neutrophils/100 WBC (Bld) 63.2 % Normal 36.0-75.0 [facility] Comment on above: Order Comment: Order Added by Discern Expert. Performed By: #### 7 35372986, 37556603, 1242141, 8413783, 8279444 ####[address] [place] [address] Neutrophils/Leukocyte s Auto (Bld) [Pure # fraction] 3.7 E9/L Normal 2.0-7.5 [facility] Comment on above: Order Comment: Order Added by Discern Expert. Performed By: #### 7 12234763, 57698939, 7231291, 4877295, 4038610 ####[facility] [address] [place] [address] BMPon 01-11-2023 Anion gap [Moles/Vol] 11 mmol/L Normal 6-16 [facility] Comment on above: Performed By: #### 7 53932688, 57451819, 4410371, 6787360, 5931617 ####[address] [place] [address] Calcium [Mass/Vol] 8.8 mg/dL Low 8.9-11.1 [facility] Comment on above: Performed By: #### 7 82317244, 84952581, 3373257, 5396539, 2778559 ####[facility] [address] [place] [address] Chloride [Moles/Vol] 106 mmol/L Normal 101-111 [facility] Comment on above: Performed By: #### 7 72633104, 96952282, 8471319, 8464831, 5164414 ####[facility] [address] [place] [address] CO2 [Moles/Vol] 29 mmol/L Normal 21-31 [facility] Comment on above: Performed By: #### 7 77336730, 00230493, 8931809, 6416589, 4341831 ####[facility] [address] [place] [address] Creatinine [Mass/Vol] 1.0 mg/dL Normal 0.5-1.3 [facility] Comment on above: Performed By: #### 7 09822093, 80766219, 8167163, 7741509, 9134025 ####[facility] [address] [place] [address] Glucose [Mass/Vol] 158 mg/dL Normal 55-199 [facility] Comment on above: Result Comment: If t his glucose result represents a fasting glucose, interpretation should refer to the following reference range: 55-99 mg/dL Performed By: #### 7 22847720, 25105910, 8503457, 9309485, 9093356 ####[facility] [address] [place] [address] Potassium [Moles/Vol] 3.7 mmol/L Normal 3.5-5.3 [facility] Comment on above: Performed By: #### 7 13851657, 99102978, 7097488, 3271926, 8682634 ####[facility] [address] [place] [address] Sodium [Moles/Vol] 142 mmol/L Normal 135-145 [facility] Comment on above: Performed By: #### 7 00698639, 75416952, 1548706, 7553533, 6197840 ####[facility] [address] [place] [address] Urea nitrogen [Mass/Vol] 23 mg/dL High 5-21 [facility] Comment on above: Performed By: #### 7 41723742, 52943677, 6041284, 4926556, 9735762 ####[facility] [address] [place] [address] Urea nitrogen/Creatinine [Mass ratio] 23 No Units High 10-20 [facility] Comment on above: Performed By: #### 7 55188053, 48691062, 2409348, 4955115, 9079713 ####[facility] [address] [place] [address] CBC w/ Auto Diffon 3 Erythrocyte distribution width (RBC) [Ratio] 16.7 % High 10.9-14.2 [facility] Comment on above: Performed By: #### 7 61017103, 76139965, 2720843, 0200862, 5440042 ####[facility] [address] [place] [address] Hematocrit (Bld) [Volume fraction] 31.4 % Low 37.7-49.0 [facility] Comment on above: Performed By: #### 7 60108286, 07980651, 3902957, 3511187, 2399829 ####[facility] [address] [place] [address] Hemoglobin (Bld) [Mass/Vol] 10.1 g/dL Low 13.5-17.5 [facility] Comment on above: Performed By: #### 7 31471580, 14814519, 7913203, 0392607, 4400874 ####[facility] [address] [place] [address] MCH (RBC) [Entitic mass] 25.5 pg Low 27.0-34.0 [facility] Comment on above: Performed By: #### 7 26337453, 53127673, 3270677, 9774607, 9955071 ####[facility] [address] [place] [address] MCHC (RBC) [Mass/Vol] 32.2 g/dL Normal 31.4-36.0 [facility] Comment on above: Performed By: #### 7 85960301, 83411665, 0802350, 3724799, 7140364 ####[facility] [address] [place] [address] MCV (RBC) [Entitic vol] 79.3 fL Low 80.0-100.0 [facility] Comment on above: Performed By: #### 7 56013390, 15575741, 1731542, 2013396, 6057079 ####[address] [place] [address] Platelet mean volume (Bld) [Entitic vol] 8.5 fL Normal 6.4-10.8 [facility] Comment on above: Performed By: #### 7 24330194, 55018762, 4594569, 3094381, 6575155 ####[address] [place] [address] Platelets (Bld) [#/Vol] 286.0 E9/L Normal 150.0-500.0 [facility] Comment on above: Performed By: #### 7 34044402, 23320554, 6680129, 1903256, 9509484 ####[address] [address] RBC (Bld) [#/Vol] 4.0 E12/L Low 4.3-5.9 [facility] Comment on above: Performed By: #### 7 24511477, 23519326, 0432314, 3781558, 7922987 ####[address] [place] [address] WBC corrected for nucl RBC Auto (Bld) [#/Vol] 5.8 E9/L Normal 4.0-11.0 [facility] Comment on above: Performed By: #### 7 60759113, 56953550, 7498909, 0847989, 7267456 ####[address] [place] [address] CHEMISTRYOrdered By: SYSTEM SYSTEM on 01-11-2023 Anion gap [Moles/Vol] 11 mmol/L Normal 6 - 16 mEq/L [facility] Remisol Calcium [Mass/Vol] 8.8 mg/dL Low 8.9 - 11. 1 mg/dL [facility] Remisol Chloride [Moles/Vol] 106 mmol/L Normal 101 - 1 11 mmol/L [facility] Remisol CO2 [Moles/Vol] 29 mmol/L Normal 21 - 31 mmol/L [facility] Remisol Creatinine [Mass/Vol] 1.0 mg/dL Normal 0.5 - 1.3 mg/dL [facility] Remisol GFR/1.73 sq M.predicted among non-blacks MDRD (S/P/Bld) [Vol rate/Area] 86 mL/min/1.73 m2 Normal >=59mL/min/1 .73 m2 [facility] Chem S Glucose [Mass/Vol] 158 mg/dL Normal 55 - 199 mg/dL [facility] Remisol Potassium [Moles/Vol] 3.7 mmol/L Normal 3.5 - 5.3 mmol/L [facility] Remisol Sodium [Moles/Vol] 142 mmol/L Normal 135 - 145 mmol/L [facility] Remisol Urea nitrogen [Mass/Vol] 23 mg/dL High 5 - 21 mg/dL [facility] Remisol Urea nitrogen/Creatinine [Mass ratio] 23 mg/mg High 10 - 20 [facility] Remisol CHEMISTRYOrdered By: Makenna Portillo on 01-11-2023 HbA1c (Bld) [Mass fraction] 7.7 % High <=5.9% [facility] ChemAutoSS Capillary Glucose POCon Glucose [Mass/Vol] 261 mg/dL High 55-99 [facility] Comment on above: Result Comment: Mary COLLAZO Performed By: #### 2 [id number] ####[facility] [address] [place] [address] Glucose [Mass/Vol] 222 mg/dL High 55-99 [facility] Comment on above: Result Comment: Mary COLLAZO Performed By: #### 2 53365601 ####[facility] [address] [place] [address] Glucose [Mass/Vol] 149 mg/dL High 55-99 [facility] Comment on above: Result Comment: Mary COLLAZO Performed By: #### 2 [id number] ####[facility] [address] [place] [address] HEMATOLOGYOrdered By: SYSTEM SYSTEM on 01-11-2023 Basophils/100 WBC (Bld) 0.8 % Normal 0.0 - 2.0 % [facility] HemeAutoSS Basophils/Leukocytes Auto (Bld) [Pure # fraction] 0.0 E9/L Normal 0.0 - 0.2 E9/L [facility] HemeAutoSS Eosinophils/100 WBC (Bld) 1.7 % Normal 0.0 - 8.0 % [facility] HemeAutoSS Eosinophils/Leukocyte s Auto (Bld) [Pure # fraction] 0.1 E9/L Normal 0.0 - 0.5 E9/L [facility] HemeAutoSS Lymphocytes/100 WBC (Bld) 25.1 % Normal 14.0 - 50.0 % [facility] HemeAutoSS Lymphocytes/Leukocyte s Auto (Bld) [Pure # fraction] 1.5 E9/L Normal 1.0 - 4.0 E9/L [facility] HemeAutoSS Monocytes/100 WBC (Bld) 9.2 % Normal 4.0 - 14.0 % [facility] HemeAutoSS Monocytes/Leukocytes Auto (Bld) [Pure # fraction] 0.5 E9/L Normal 0.2 - 1.0 E9/L [facility] HemeAutoSS Neutrophils/100 WBC (Bld) 63.2 % Normal 36.0 - 75.0 % [facility] HemeAutoSS Neutrophils/Leukocyte s Auto (Bld) [Pure # fraction] 3.7 E9/L Normal 2.0 - 7.5 E9/L [facility] HemeAutoSS HEMATOLOGYOrdered By: Franci Lane on 01-11-2023 Erythrocyte distribution width (RBC) [Ratio] 16.7 % High 10.9 - 14.2 % [facility] HemeAutoSS Hematocrit (Bld) [Volume fraction] 31.4 % Low 37.7 - 49.0 % [facility] HemeAutoSS Hemoglobin (Bld) [Mass/Vol] 10.1 g/dL Low 13.5 - 17.5 gm/dL [facility] HemeAutoSS MCH (RBC) [Entitic mass] 25.5 pg Low 27.0 - 34.0 pg [facility] HemeAutoSS MCHC (RBC) [Mass/Vol] 32.2 g/dL Normal 31.4 - 36.0 gm/dL [facility] HemeAutoSS MCV (RBC) [Entitic vol] 79.3 fL Low 80.0 - 100.0 fL [facility] HemeAutoSS Platelet mean volume (Bld) [Entitic vol] 8.5 fL Normal 6.4 - 10.8 fL [facility] HemeAutoSS Platelets (Bld) [#/Vol] 286.0 E9/L Normal 150.0 - 500.0 E9/L [facility] HemeAutoSS RBC (Bld) [#/Vol] 4.0 E12/L Low 4.3 - 5.9 E12/L [facility] HemeAutoSS WBC corrected for nucl RBC Auto (Bld) [#/Vol] 5.8 E9/L Normal 4.0 - 11.0 E9/L [facility] HemeAutoSS Interdisciplinary Note - Virgil e Manageron 01-11-2023 Interdisciplinary Note - Pharmacy Analyst [facility] Comment on above: Result Comment: Elec tronically Signed By: Teagan Lundy RN\.br\Date and Time Signed: 01/11/23 12:17 EDT MRI Foot w/o Contrast Righto n 01-11-2023 MRI Foot w/o Contrast Right Normal [facility] Monitor Recordon 01-11-2023 Monitor Record [id number]#[id number]:127 Normal [facility] Monitor Record [id number]#[id number]:127 Normal [facility] No Panel InformationOrdered By: Margret Ambriz on 01-11-2023 GS Occasional White Blo od Cells Occasional Gram Positive Cocci Occasional Gram Positive Rods [facility] Wound Culture 2+ Gram Positive Lavell s resembling diphtheroids [facility] Progress Note - Pharmacyon 0 01-11-2023 Progress Note - Pharmacy Normal [facility] Progress Note-Physicianon Progress Note-Physician Normal [facility] Comment on above: Result Comment: Elec tronically Signed By: VAMSI GILBERT, Mimi\.br\Date and Time Signed: 01/11/23 08:58 EDT RAD - MRI Screening Formon 0 01-11-2023 RAD - MRI Screening Form [id number]#1.00CD:127 Normal [facility] eGFRon 01-11-2023 GFR/1.73 sq M.predicted among non-blacks MDRD (S/P/Bld) [Vol rate/Area] 86 mL/min/1.73 m2 Normal >=59 [facility] Comment on above: Order Comment: Order added by Discern Expert. Result Comment: Choral Director claus kidney disease could be indicated at eGFR's of less than 60 mL/min/1.73m2. Kidney failure is indicated at less than 15 mL/min/1.73m2. Performed By: #### 7 [id number], 86258891, 4913095, 1271015, 3343741 ####[facility] [address] [place] [address] Auto Diffon 01-10-2023 Basophils/100 WBC (Bld) 0.7 % Normal 0.0-2.0 [facility] Comment on above: Order Comment: Order Added by Discern Expert. Performed By: #### 2 593201, 75716730, 1397278, 0169946, 69939644, 4364980, 8140903 ####[facility] [address] [place] [address] Basophils/Leukocytes Auto (Bld) [Pure # fraction] 0.0 E9/L Normal 0.0-0.2 [facility] Comment on above: Order Comment: Order Added by Discern Expert. Performed By: #### 2 847950, 01715082, 2624681, 1775580, 14157630, 4810250, 9916060 ####[facility] [address] [place] [address] Eosinophils/100 WBC (Bld) 1.3 % Normal 0.0-8.0 [facility] Comment on above: Order Comment: Order Added by Frankie Expert. Performed By: #### 2 100298, 44592559, 2527036, 5241419, 30696055, 4930767, 6834177 ####[facility] [address] [place] [address] Eosinophils/Leukocyte s Auto (Bld) [Pure # fraction] 0.1 E9/L Normal 0.0-0.5 [facility] Comment on above: Order Comment: Order Added by Discern Expert. Performed By: #### 2 516634, 40218248, 2218265, 6435710, 28140534, 0181926, 4197617 ####[address] [place] [address] Lymphocytes/100 WBC (Bld) 22.5 % Normal 14.0-50.0 [facility] Comment on above: Order Comment: Order Added by Discern Expert. Performed By: #### 2 785604, 61582026, 4813554, 7737343, 70966069, 3742615, 3391151 ####[address] [address] Lymphocytes/Leukocyte s Auto (Bld) [Pure # fraction] 1.5 E9/L Normal 1.0-4.0 [facility] Comment on above: Order Comment: Order Added by Discern Expert. Performed By: #### 2 256433, 43933998, 6570751, 0996052, 92014520, 3486445, 3866031 ####[address] [address] Monocytes/100 WBC (Bld) 8.5 % Normal 4.0-14.0 [facility] Comment on above: Order Comment: Order Added by Discern Expert. Performed By: #### 2 851977, 37444070, 3863131, 4146383, 55186957, 5013657, 3472377 ####[address] [place] [address] Monocytes/Leukocytes Auto (Bld) [Pure # fraction] 0.6 E9/L Normal 0.2-1.0 [facility] Comment on above: Order Comment: Order Added by Discern Expert. Performed By: #### 2 929637, 59557523, 8516389, 1026541, 23892380, 7672051, 3357658 ####[address] [place] [address] Neutrophils/100 WBC (Bld) 67.0 % Normal 36.0-75.0 [facility] Comment on above: Order Comment: Order Added by Discern Expert. Performed By: #### 2 005067, 89949502, 0528126, 2090129, 66977265, 7098198, 5855621 ####[facility] [address] [place] [address] Neutrophils/Leukocyte s Auto (Bld) [Pure # fraction] 4.5 E9/L Normal 2.0-7.5 [facility] Comment on above: Order Comment: Order Added by Discern Expert. Performed By: #### 2 933420, 88175949, 8528281, 9813957, 53311522, 5204756, 3931875 ####[address] [address] BNPon 01-10-2023 Natriuretic peptide B (Bld) [Mass/Vol] 52 pg/mL Normal 5-80 [facility] Comment on above: Performed By: #### 1 [id number] ####[address] [address] CBC w/ Auto Diffon Erythrocyte distribution width (RBC) [Ratio] 17.1 % High 10.9-14.2 [facility] Comment on above: Performed By: #### 2 893530, 15357636, 7596304, 5105745, 22872760, 7918773, 2229499 ####[address] [place] [address] Hematocrit (Bld) [Volume fraction] 34.9 % Low 37.7-49.0 [facility] Comment on above: Performed By: #### 2 564051, 19744271, 4012237, 2551096, 20682518, 5647803, 3782195 ####[facility] [address] [place] [address] Hemoglobin (Bld) [Mass/Vol] 11.2 g/dL Low 13.5-17.5 [facility] Comment on above: Performed By: #### 2 177258, 07060099, 5573792, 4240791, 44220205, 4624177, 3127564 ####[facility] [address] [place] [address] MCH (RBC) [Entitic mass] 25.4 pg Low 27.0-34.0 [facility] Comment on above: Performed By: #### 2 701598, 35585415, 4117313, 7415361, 38045854, 6825902, 8165973 ####[facility] [address] [place] [address] MCHC (RBC) [Mass/Vol] 32.2 g/dL Normal 31.4-36.0 [facility] Comment on above: Performed By: #### 2 744803, 86727980, 8684302, 3821777, 36354983, 3853305, 6289325 ####[address] [address] MCV (RBC) [Entitic vol] 79.1 fL Low 80.0-100.0 [facility] Comment on above: Performed By: #### 2 061912, 49378432, 7281800, 2796794, 74072518, 2969522, 2778172 ####[address] [place] [address] Platelet mean volume (Bld) [Entitic vol] 8.8 fL Normal 6.4-10.8 [facility] Comment on above: Performed By: #### 2 711782, 95421357, 5190319, 8968900, 87442437, 4652708, 8387489 ####[address] [place] [address] Platelets (Bld) [#/Vol] 327.0 E9/L Normal 150.0-500.0 [facility] Comment on above: Performed By: #### 2 068510, 72207107, 5000700, 4144680, 25912882, 4836750, 0367290 ####[facility] [address] [place] [address] RBC (Bld) [#/Vol] 4.4 E12/L Normal 4.3-5.9 [facility] Comment on above: Performed By: #### 2 289688, 41167588, 5339377, 9920138, 86969644, 5531151, 1302456 ####[facility] [address] [place] [address] WBC corrected for nucl RBC Auto (Bld) [#/Vol] 6.8 E9/L Normal 4.0-11.0 [facility] Comment on above: Performed By: #### 2 677014, 18670423, 4355772, 3089184, 91380280, 8193359, 4280182 ####[facility] [address] [place] [address] CHEMISTRYOrdered By: SYSTEM SYSTEM on 01-10-2023 Lactate [Mass/Vol] 1.5 mmol/L Normal 0.5 - 2.2 mmol/L [facility] Remisol Albumin [Mass/Vol] 3.4 g/dL Normal 3.3 - 5.0 gm/dL [facility] Remisol Albumin/Globulin [Mass ratio] 0.7 {ratio} Low 1.1 - 2.2 [facility] ALP [Catalytic activity/Vol] 61 [iU]/d Normal 21 - 98 Int._Unit/L [facility] ALT No additional P-5'-P [Catalytic activity/Vol] 11 [iU]/d Normal 6 - 46 Int._Unit/L [facility] Rem[facility] Anion gap [Moles/Vol] 12 mmol/L Normal 6 - 16 mEq/L F [facility] AST [Catalytic activity/Vol] 16 [iU]/d Normal 5 - 43 Int._Unit/L [facility] Bilirubin [Mass/Vol] 0.6 mg/dL Normal 0.0 - 1 .1 mg/dL [facility] Calcium [Mass/Vol] 9.2 mg/dL Normal 8.9 - 11. 1 mg/dL [facility] Chloride [Moles/Vol] 103 mmol/L Normal 101 - 1 11 mmol/L [facility] CO2 [Moles/Vol] 29 mmol/L Normal 21 - 31 mmol/L [facility] Creatinine [Mass/Vol] 0.9 mg/dL Normal 0.5 - 1.3 mg/dL [facility] GFR/1.73 sq M.predicted among non-blacks MDRD (S/P/Bld) [Vol rate/Area] 97 mL/min/1.73 m2 Normal >=59mL/min/1 .73 m2 [facility] Chem S Globulin (S) [Mass/Vol] 4.8 g/dL High 1.4 - 4.0 gm/dL [facility] Glucose [Mass/Vol] 197 mg/dL Normal 55 - 199 mg/dL [facility] Lactate [Mass/Vol] 1.7 mmol/L Normal 0.5 - 2.2 mmol/L [facility] Potassium [Moles/Vol] 4.0 mmol/L Normal 3.5 - 5.3 mmol/L [facility] Protein [Mass/Vol] 8.2 g/dL High 6.0 - 7.8 gm/dL [facility] Sodium [Moles/Vol] 140 mmol/L Normal 135 - 145 mmol/L [facility] Troponin I.cardiac [Mass/Vol] 3.70 pg/mL Low 15.90 - 38.40 pg/mL [facility] Remisol Urea nitrogen [Mass/Vol] 19 mg/dL Normal 5 - 21 mg/dL [facility] Urea nitrogen/Creatinine [Mass ratio] 21 mg/mg High 10 - 20 [facility] CHEMISTRYOrdered By: Franci Lane on 01-10-2023 Natriuretic peptide B (Bld) [Mass/Vol] 52 pg/mL Normal 5 - 80 pg/mL [facility] Dawson CMPon 01-10-2023 Albumin [Mass/Vol] 3.4 g/dL Normal 3.3-5.0 [facility] Comment on above: Performed By: #### 2 157211, 16303150, 5252225, 9820899, 31268427, 6450206, 8344800 ####[facility] [address] [place] [address] Albumin/Globulin (S) [Mass conc ratio] 0.7 Low 1.1-2.2 [facility] Comment on above: Performed By: #### 2 226837, 29669013, 3166226, 9367441, 72282833, 1806871, 0370266 ####[facility] [address] [place] [address] ALP [Catalytic activity/Vol] 61 Int._Unit/L Normal 21-98 [facility] Comment on above: Performed By: #### 2 493779, 70780688, 6372920, 6621989, 79010276, 5692509, 5222270 ####[facility] [address] [place] [address] ALT No additional P-5'-P [Catalytic activity/Vol] 11 Int._Unit/L Normal 6-46 [facility] Comment on above: Performed By: #### 2 524566, 52243827, 3087519, 7106698, 59753424, 8034158, 2566117 ####[facility] [address] [place] [address] AST [Catalytic activity/Vol] 16 Int._Unit/L Normal 5-43 [facility] Comment on above: Performed By: #### 2 341959, 08089104, 3182281, 0587633, 29959238, 9604915, 3449212 ####[facility] [address] [place] [address] Bilirubin [Mass/Vol] 0.6 mg/dL Normal 0.0-1.1 [facility] Comment on above: Performed By: #### 2 566635, 46057314, 2462564, 7905090, 12823705, 3095203, 4857467 ####[facility] [address] [place] [address] Creatinine [Mass/Vol] 0.9 mg/dL Normal 0.5-1.3 [facility] Comment on above: Performed By: #### 2 736768, 30176689, 0915232, 0464283, 39531244, 8581427, 4105370 ####[facility] [address] [place] [address] Globulin (S) [Mass/Vol] 4.8 g/dL High 1.4-4.0 [facility] Comment on above: Performed By: #### 2 769448, 15660249, 2774896, 2648439, 40123896, 9031199, 8657808 ####[facility] [address] [place] [address] Protein [Mass/Vol] 8.2 g/dL High 6.0-7.8 [facility] Comment on above: Performed By: #### 2 845036, 52628184, 8116277, 6283798, 80478751, 1498603, 0867670 ####[facility] [address] [place] [address] Urea nitrogen [Mass/Vol] 19 mg/dL Normal 5-21 [facility] Comment on above: Performed By: #### 2 889577, 22056540, 2456616, 1829809, 48952423, 0984858, 6171435 ####[facility] [address] [place] [address] Urea nitrogen/Creatinine [Mass ratio] 21 No Units High 10-20 [facility] Comment on above: Performed By: #### 2 390450, 18090047, 7952622, 8176601, 23458780, 0926483, 2861073 ####[facility] [address] [place] [address] Anion gap [Moles/Vol] 12 mmol/L Normal 6-16 [facility] Comment on above: Performed By: #### 2 080041, 88926149, 5480669, 0365590, 99271550, 9352104, 9590839 ####[facility] [address] [place] [address] Calcium [Mass/Vol] 9.2 mg/dL Normal 8.9-11.1 [facility] Comment on above: Performed By: #### 2 702822, 94538482, 5223154, 4202384, 78544918, 9382254, 1691365 ####[facility] [address] [place] [address] Chloride [Moles/Vol] 103 mmol/L Normal 101-111 [facility] Comment on above: Performed By: #### 2 368746, 51794487, 0430788, 9509475, 48812111, 4954067, 2442600 ####[facility] [address] [place] [address] CO2 [Moles/Vol] 29 mmol/L Normal 21-31 [facility] Comment on above: Performed By: #### 2 579819, 01721439, 3965989, 0446559, 58361305, 6963713, 5861218 ####[facility] [address] [place] [address] Glucose [Mass/Vol] 197 mg/dL Normal 55-199 [facility] Comment on above: Result Comment: If t his glucose result represents a fasting glucose, interpretation should refer to the following reference range: 55-99 mg/dL Performed By: #### 2 024377, 65618442, 0734588, 5795681, 49489701, 9743964, 2986833 ####[facility] [address] [place] [address] Potassium [Moles/Vol] 4.0 mmol/L Normal 3.5-5.3 [facility] Comment on above: Performed By: #### 2 007776, 70274110, 6709848, 8196625, 99425003, 3168262, 9984733 ####[facility] [address] [place] [address] Sodium [Moles/Vol] 140 mmol/L Normal 135-145 [facility] Comment on above: Performed By: #### 2 114711, 65581527, 4220117, 1112199, 65693090, 8770779, 9799423 ####[facility] [address] [place] [address] COAGULATIONOrdered By: Cari Lagost on 01-10-2023 aPTT Coag (PPP) [Time] 37.6 s High 25.1 - 36.5 second(s) [facility] Auto Coag INR Coag (PPP) [Relative time] 1.2 {INR} Invalid Interpretation Code [facility] Auto Coag PT Coag (PPP) [Time] 13.4 s High 9.4 - 1 2.5 second(s) [facility] Auto Coag Capillary Glucose POCon Glucose [Mass/Vol] 235 mg/dL High 55-99 [facility] Comment on above: Result Comment: Mary flores RN/ Performed By: #### 2 14740110 ####[facility] [address] [place] [address] Glucose [Mass/Vol] 105 mg/dL High 55-99 [facility] Comment on above: Result Comment: Mary COLLAZO Performed By: #### 2 41738895 ####[facility] [address] [place] [address] Consent for Treatmenton Consent for Treatment [id number]#1.00CD:127 Normal [facility] ED Clinical Summaryon 2022 ED Clinical Summary Normal [facility] ED Patient Education Noteon 01-10-2023 ED Patient Education Note Normal [facility] ED Patient Summaryon 023 ED Patient Summary Normal [facility] GetWell Education Videoon GetWell Education Video Patient Avoiding Infections in the Hospital Yes Normal [facility] HEMATOLOGYOrdered By: SYSTEM SYSTEM on 01-10-2023 Basophils/100 WBC (Bld) 0.7 % Normal 0.0 - 2.0 % [facility] HemeAutoSS Basophils/Leukocytes Auto (Bld) [Pure # fraction] 0.0 E9/L Normal 0.0 - 0.2 E9/L [facility] HemeAutoSS Eosinophils/100 WBC (Bld) 1.3 % Normal 0.0 - 8.0 % [facility] HemeAutoSS Eosinophils/Leukocyte s Auto (Bld) [Pure # fraction] 0.1 E9/L Normal 0.0 - 0.5 E9/L [facility] HemeAutoSS Lymphocytes/100 WBC (Bld) 22.5 % Normal 14.0 - 50.0 % [facility] HemeAutoSS Lymphocytes/Leukocyte s Auto (Bld) [Pure # fraction] 1.5 E9/L Normal 1.0 - 4.0 E9/L [facility] HemeAutoSS Monocytes/100 WBC (Bld) 8.5 % Normal 4.0 - 14.0 % [facility] HemeAutoSS Monocytes/Leukocytes Auto (Bld) [Pure # fraction] 0.6 E9/L Normal 0.2 - 1.0 E9/L [facility] HemeAutoSS Neutrophils/100 WBC (Bld) 67.0 % Normal 36.0 - 75.0 % [facility] HemeAutoSS Neutrophils/Leukocyte s Auto (Bld) [Pure # fraction] 4.5 E9/L Normal 2.0 - 7.5 E9/L [facility] HemeAutoSS HEMATOLOGYOrdered By: Franci Lane on 01-10-2023 Erythrocyte distribution width (RBC) [Ratio] 17.1 % High 10.9 - 14.2 % [facility] HemeAutoSS Hematocrit (Bld) [Volume fraction] 34.9 % Low 37.7 - 49.0 % [facility]eAutoSS Hemoglobin (Bld) [Mass/Vol] 11.2 g/dL Low 13.5 - 17.5 gm/dL [facility] HemeAutoSS MCH (RBC) [Entitic mass] 25.4 pg Low 27.0 - 34.0 pg [facility]eAutoSS MCHC (RBC) [Mass/Vol] 32.2 g/dL Normal 31.4 - 36.0 gm/dL [facility] HemeAutoSS MCV (RBC) [Entitic vol] 79.1 fL Low 80.0 - 100.0 fL [facility] HemeAutoSS Platelet mean volume (Bld) [Entitic vol] 8.8 fL Normal 6.4 - 10.8 fL [facility] HemeAutoSS Platelets (Bld) [#/Vol] 327.0 E9/L Normal 150.0 - 500.0 E9/L [facility] HemeAutoSS RBC (Bld) [#/Vol] 4.4 E12/L Normal 4.3 - 5.9 E12/L [facility] corrected for nucl RBC Auto (Bld) [#/Vol] 6.8 E9/L Normal 4.0 - 11.0 E9/L [facility] HemeAutoSS Lactic Acidon 01-10-2023 Lactate [Mass/Vol] 1.5 mmol/L Normal 0.5-2.2 [facility] Comment on above: Performed By: #### 2 479294 ####[facility] [address] [place] [address] Lactate [Mass/Vol] 1.7 mmol/L Normal 0.5-2.2 [facility] Comment on above: Performed By: #### 2 953402, 88544582, 8997532, 0908796, 35683110, 0136437, 3990083 ####[facility] [address] [place] [address] Monitor Recordon 01-10-2023 Monitor Record [id number]#1.00CD:127 Normal [facility] No Panel InformationOrdered By: ANGPROCESSSERVER MICROBIOLOGY on 01-10-2023 Blood Culture Charcoal No growth at 5 days. Final to follow at 7 days. [facility] PT & PTTon 01-10-2023 aPTT Coag (PPP) [Time] 37.6 second(s) High 25.1-36.5 [facility] Comment on above: Result Comment: Para meter 15 days - 4 weeks 1 - 5 months 6 - 11 months 1 - 5 years 6 - 10 years 11 - 17 years PTT Mean: 35.4 (27.6-45.6) Mean: 33.5 (24.8-40.7) Mean: 32.4 (25.1-40.7) Mean: 31.6 (24.0-39.2) Mean: 31.6 (26.9-38.7) Mean: 31.0 (24.6-38.4) Pediatric Reference ranges were obtained from a study by Jose Juan Olguin et al. prepared from 1437 samples obtained at 7 different centers using the same coagulation reagent and instrumentation as [facility]. Currently there are no coagulation studies available worldwide for children to 14 days, and no normal ranges. Heparin therapeutic range (represented by Anti-Factor Xa activity of 0.2 - 0.4 U/mL) corresponds to PTT of 56.6 - 109.0 sec. Performed By: #### 2 782620, 28401032, 0998978, 6992228, 76067908, 9568327, 5096082 ####[facility] [address] [place] [address] INR Coag (PPP) [Relative time] 1.2 {INR} Invalid Interpretation Code [facility] Comment on above: Result Comment: INR results are specifically intended to assess patients stabilized on long-term Anticoagulation therapy suggested INR?s ?Less Intensive Anticoagulation? 2.0 ? 3.0Conventional Range 3.0 ? 4.5 Performed By: #### 2 964502, 62437570, 5886469, 9853500, 75409370, 1538878, 8424423 ####[facility] [address] [place] [address] PT Coag (PPP) [Time] 13.4 second(s) High 9.4-12.5 [facility] Comment on above: Result Comment: 15 d ays - 4 weeks 1 - 5 months 6 -11 months 1- 5 years 6-10 years 11 -17 years Mean: 11.2 (9.5-12.6) Mean: 11.0 (9.7-12.8) Mean: 11.0 (9.8-13.0) Mean: 11.3 (9.9-13.4) Mean: 11.7 (10.0-14.6) Mean: 11.8 (10.0 - 14.1) Pediatric Reference ranges were obtained from a study by Jose Juan Olguni et al. prepared from 1437 samples obtained at 7 different centers using the same coagulation reagent and instrumentation as [facility]. Currently there are no coagulation studies available worldwide for children to 14 days, and no normal ranges. Performed By: #### 2 766003, 65828692, 8625365, 9043597, 19195633, 0939649, 8801867 ####[facility] [address] [place] [address] Progress Note - Pharmacyon 0 01-10-2023 Progress Note - Pharmacy Normal [facility] Troponinon 01-10-2023 Troponin I.cardiac [Mass/Vol] 3.70 pg/mL Low 15.90-38.40 [facility] Comment on above: Result Comment: The 95% CI (Confidence Interval) PPV (Positive Predictive Value) for myocardial infarction in females is 38 pg/mL, in males 51 pg/mL. The results should be used in conjunction with clinical conditions of myocardial infarction.(Access High Sensitivity Troponin I Instructions For Use, [employer], December 2017) Performed By: #### 2 485569, 04219824, 9098883, 9679974, 06881225, 7334751, 4420908 ####[facility] [address] [place] [address] XR Foot 3+ Views Righton XR Foot 3+ Views Right Normal [facility] eGFRon 01-10-2023 GFR/1.73 sq M.predicted among non-blacks MDRD (S/P/Bld) [Vol rate/Area] 97 mL/min/1.73 m2 Normal >=59 [facility] Comment on above: Order Comment: Order added by Discern Expert. Result Comment: Choral Director claus kidney disease could be indicated at eGFR's of less than 60 mL/min/1.73m2. Kidney failure is indicated at less than 15 mL/min/1.73m2. Performed By: #### 2 621093, 71591257, 8487018, 9545891, 91599518, 7056016, 4436263 ####[facility] [address] [place] [address] Nursing Note - Woundon 11-03 Nursing Note - Wound [id number]#2.00CD:127 Normal [facility] Prescriptions/Work Noteson 0 10-29-2022 Prescriptions/Work Notes [id number]#1.00CD:127 Normal [facility] Consent for Procedure/Surger yon 10-23-2022 Consent for Procedure/Surgery [id number]#1.00CD:127 [facility] Prescriptions/Work Noteson 0 10-23-2022 Prescriptions/Work Notes [id number]#1.00CD:127 [facility] Consent for Treatmenton 10-09 Consent for Treatment [id number]#1.00CD:127 [facility] Multi-Wound Charton 10-23-19 Multi-Wound Chart [id number]#1.00CD:127 [facility] Nursing Assessment - Woundon 10-22-2022 Nursing Assessment - Wound [id number]#1.00CD:127 [facility] Physician Orderon 10-22-2022 Physician Order [id number]#1.00CD:127 [facility] Progress Note - Woundon 10-09 Progress Note - Wound [id number]#1.00CD:127 [facility] Physician Orderon 10-21-2022 Physician Order [id number]#1.00CD:127 [facility] XR Hip 2-3 Views Right + Pel vison 10-13-2022 XR Hip 2-3 Views Right + Pelvis [facility] XR Knee Complete 4+ Views Ri ghton 10-13-2022 XR Knee Complete 4+ Views Right [facility] Consent for Treatmenton Consent for Treatment [id number]#1.00CD:127 [facility] Physician Orderon 10-10-2022 Physician Order [id number]#1.00CD:127 [facility] Progress Note - Woundon 06-0 Progress Note - Wound [id number]#2.00CD:127 [facility] Consent for Treatmenton 09-10 Consent for Treatment [id number]#1.00CD:127 [facility] Multi-Wound Charton 10-09-19 Multi-Wound Chart [id number]#1.00CD:127 [facility] Nursing Assessment - Woundon 10-08-2022 Nursing Assessment - Wound [id number]#1.00CD:127 [facility] Nursing Note - Woundon 10-08 Nursing Note - Wound [id number]#1.00CD:127 [facility] Physician Orderon 10-08-2022 Physician Order [id number]#1.00CD:127 [facility] Physician Order [id number]#1.00CD:127 [facility] Procedure - Woundon 10-09-19 Procedure - Wound [id number]#1.00CD:127 [facility] Physician Orderon 09-30-2022 Physician Order [id number]#1.00CD:127 [facility] Consent for Procedure/Surger yon 09-24-2022 Consent for Procedure/Surgery [id number]#1.00CD:127 [facility] Consent for Treatmenton 09-08 Consent for Treatment [id number]#1.00CD:127 [facility] Multi-Wound Charton 09-25-19 Multi-Wound Chart [id number]#1.00CD:127 [facility] Nursing Assessment - Woundon 09-24-2022 Nursing Assessment - Wound [id number]#1.00CD:127 [facility] Nursing Note - Woundon 09-24 Nursing Note - Wound [id number]#1.00CD:127 [facility] Physician Orderon 09-24-2022 Physician Order [id number]#1.00CD:127 [facility] Physician Order [id number]#1.00CD:127 [facility] Physician Order [id number]#1.00CD:127 [facility] Procedure - Woundon 09-25-19 Procedure - Wound [id number]#1.00CD:127 [facility] Progress Note - Woundon 09-08 Progress Note - Wound [id number]#1.00CD:127 [facility] Coding Summary.on 09-05-2022 Coding Summary. [facility] Consent for Treatmenton 08-10 Consent for Treatment [id number]#1.00CD:127 [facility] Multi-Wound Charton 09-04-19 Multi-Wound Chart [id number]#1.00CD:127 [facility] Nursing Assessment - Woundon 09-03-2022 Nursing Assessment - Wound [id number]#1.00CD:127 [facility] Nursing Note - Woundon 09-03 Nursing Note - Wound [id number]#1.00CD:127 [facility] Physician Orderon 09-03-2022 Physician Order [id number]#1.00CD:127 [facility] Progress Note - Woundon 08-10 Progress Note - Wound [id number]#1.00CD:127 [facility] Physician Orderon 09-02-2022 Physician Order [id number]#1.00CD:127 [facility] Operative Reporton Operative Report [facility] Comment on above: Result Comment: Elec tronically Signed By: Ramiro Epperson DPM.br\Date and Time Signed: 08/30/22 11:29 EDT Coding Summary.on 08-28-2022 Coding Summary. [facility] Nursing Assessment - Woundon 08-28-2022 Nursing Assessment - Wound [id number]#1.00CD:127 [facility] Nursing Note - Woundon 08-28 Nursing Note - Wound [id number]#1.00CD:127 [facility] Physician Orderon 08-28-2022 Physician Order [id number]#1.00CD:127 [facility] Progress Note - Woundon 08-10 Progress Note - Wound [id number]#1.00CD:127 [facility] Consent for Treatmenton 08-09 Consent for Treatment [id number]#1.00CD:127 Normal [facility] Multi-Wound Charton 08-28-19 Multi-Wound Chart [id number]#1.00CD:127 Normal [facility] C Blood Charcoalon Blood Culture Charcoal [facility] Comment on above: Performed By: #### 1 [id number] ####[facility] [address] [place] [id number] Blood Culture Charcoal Normal [facility] Comment on above: Performed By: #### 1 [id number] ####[facility] [address] [place] [address] Coding Summary.on 08-20-2022 Coding Summary. Normal [facility] Inpatient Clinical Summaryon 08-20-2022 Inpatient Clinical Summary [facility] Inpatient Patient Summaryon 08-20-2022 Inpatient Patient Summary Normal [facility] Consent for PICC lineon 08-09 Consent for PICC line [id number]#1.00CD:127 [facility] Discharge Instructionson Discharge Instructions [id number]#1.00CD:127 [facility] General Message Officeon General Message Office [facility] Message from Medicareon 08-09 Message from Medicare [id number]#1.00CD:127 Normal [facility] Transfer Documentson 023 Transfer Documents [id number]#1.00CD:127 [facility] Auto Diffon 08-18-2022 Basophils/100 WBC (Bld) 0.7 % Normal 0.0-2.0 [facility] Comment on above: Order Comment: Order Added by Discern Expert. Performed By: #### 1 3974839, 5579048, 0483624, 26763371, 2633459, 2037476, 5420595 ####[place] [address] [place] [address] Basophils/Leukocytes Auto (Bld) [Pure # fraction] 0.1 E9/L Normal 0.0-0.2 [facility] Comment on above: Order Comment: Order Added by Discern Expert. Performed By: #### 1 6936835, 3915910, 1933289, 28207347, 8495104, 5755103, 6212520 ####[address] [address] Eosinophils/100 WBC (Bld) 5.8 % Normal 0.0-8.0 [facility] Comment on above: Order Comment: Order Added by Discern Expert. Performed By: #### 1 8716358, 7350920, 9727201, 45401874, 0562194, 6352376, 0414952 ####[address] [address] Eosinophils/Leukocyte s Auto (Bld) [Pure # fraction] 0.4 E9/L Normal 0.0-0.5 [facility] Comment on above: Order Comment: Order Added by Discern Expert. Performed By: #### 1 2563576, 4428601, 6707578, 58880740, 5996050, 1124992, 9129293 ####[address] [address] Lymphocytes/100 WBC (Bld) 25.6 % Normal 14.0-50.0 [facility] Comment on above: Order Comment: Order Added by Discern Expert. Performed By: #### 1 6134859, 6135785, 1757163, 80091654, 6518011, 5835565, 6797858 ####[address] [address] Lymphocytes/Leukocyte s Auto (Bld) [Pure # fraction] 1.9 E9/L Normal 1.0-4.0 [facility] Comment on above: Order Comment: Order Added by Discern Expert. Performed By: #### 1 9419047, 2597806, 2635908, 67942537, 9318562, 9680231, 3108904 ####[address] [place] [address] Monocytes/100 WBC (Bld) 5.7 % Normal 4.0-14.0 [facility] Comment on above: Order Comment: Order Added by Discern Expert. Performed By: #### 1 2375696, 5216060, 0139454, 63004123, 5878999, 0785762, 4341169 ####[address] [address] Monocytes/Leukocytes Auto (Bld) [Pure # fraction] 0.4 E9/L Normal 0.2-1.0 [facility] Comment on above: Order Comment: Order Added by Discern Expert. Performed By: #### 1 2451809, 1195030, 2554584, 53224291, 0314662, 5278731, 7880003 ####[address] [address] Neutrophils/100 WBC (Bld) 62.2 % Normal 36.0-75.0 [facility] Comment on above: Order Comment: Order Added by Discern Expert. Performed By: #### 1 4794902, 7726084, 5246633, 49145488, 3410728, 2613213, 8307017 ####[address] [address] Neutrophils/Leukocyte s Auto (Bld) [Pure # fraction] 4.6 E9/L Normal 2.0-7.5 [facility] Comment on above: Order Comment: Order Added by Discern Expert. Performed By: #### 1 3622234, 5414241, 1268494, 15214170, 3704853, 0607141, 2788285 ####[address] [address] BMPon 08-18-2022 Anion gap [Moles/Vol] 11 mmol/L Normal 6-16 [facility] Comment on above: Performed By: #### 1 6595442, 2201977, 1034779, 81794897, 7746427, 0605748, 9913477 ####[facility] [address] [place] [address] Calcium [Mass/Vol] 8.5 mg/dL Low 8.9-11.1 [facility] Comment on above: Performed By: #### 1 8667169, 7153340, 8433544, 31095482, 5397662, 7366480, 9099129 ####[facility] [address] [place] [address] Chloride [Moles/Vol] 105 mmol/L Normal 101-111 [facility] Comment on above: Performed By: #### 1 1718177, 5631772, 9168931, 27343723, 8122694, 1842969, 8446293 ####[facility] [address] [place] [address] CO2 [Moles/Vol] 26 mmol/L Normal 21-31 [facility] Comment on above: Performed By: #### 1 8347063, 6444587, 0431999, 48095773, 2461052, 3299980, 4059108 ####[facility] [address] [place] [address] Creatinine [Mass/Vol] 1.2 mg/dL Normal 0.5-1.3 [facility] Comment on above: Performed By: #### 1 3399411, 1165191, 1397880, 36807422, 6076615, 7261049, 5096194 ####[facility] [address] [place] [address] Glucose [Mass/Vol] 141 mg/dL Normal 55-199 [facility] Comment on above: Result Comment: If t his glucose result represents a fasting glucose, interpretation should refer to the following reference range: 55-99 mg/dL Performed By: #### 1 8780662, 7228032, 5807331, 94528439, 0056906, 8608377, 3458915 ####[facility] [address] [place] [address] Potassium [Moles/Vol] 3.7 mmol/L Normal 3.5-5.3 [facility] Comment on above: Performed By: #### 1 2100873, 5574038, 3148412, 05406249, 2960388, 1194315, 3651925 ####[facility] [address] [place] [address] Sodium [Moles/Vol] 138 mmol/L Normal 135-145 [facility] Comment on above: Performed By: #### 1 7242594, 1193578, 5694258, 90441996, 3290898, 4154652, 1227274 ####[facility] [address] [place] [address] Urea nitrogen [Mass/Vol] 25 mg/dL High 5-21 [facility] Comment on above: Performed By: #### 1 3513082, 2770291, 9133315, 55463072, 7842372, 8229454, 3127657 ####[facility] [address] [place] [address] Urea nitrogen/Creatinine [Mass ratio] 21 No Units High 10-20 [facility] Comment on above: Performed By: #### 1 2168934, 2125737, 8466694, 07344862, 8694348, 6877725, 2238123 ####[facility] [address] [place] [address] C Woundon 08-18-2022 Wound Culture Normal [facility] Comment on above: Performed By: #### 2 760075 ####[facility] [address] [place] [address] CBC w/ Auto Diffon Erythrocyte distribution width (RBC) [Ratio] 16.0 % High 10.9-14.2 [facility] Comment on above: Performed By: #### 1 1681143, 4033383, 0766556, 21380364, 3164786, 6237673, 0358096 ####[facility] [address] [place] [address] Hematocrit (Bld) [Volume fraction] 26.2 % Low 37.7-49.0 [facility] Comment on above: Performed By: #### 1 3482978, 8893863, 0709849, 56004199, 9212581, 4736089, 4741224 ####[facility] [address] [place] [address] Hemoglobin (Bld) [Mass/Vol] 8.1 g/dL Low 13.5-17.5 [facility] Comment on above: Performed By: #### 1 0811061, 3915919, 7278649, 00863748, 6517298, 1723673, 3426790 ####[facility] [address] [place] [address] MCH (RBC) [Entitic mass] 23.1 pg Low 27.0-34.0 [facility] Comment on above: Performed By: #### 1 5162505, 4005781, 9649974, 26064395, 2453479, 7794376, 0996464 ####[place] [address] MCHC (RBC) [Mass/Vol] 30.8 g/dL Low 31.4-36.0 [facility] Comment on above: Performed By: #### 1 3462020, 6608733, 6335205, 26204584, 0070232, 0295651, 0321021 ####[address] [address] MCV (RBC) [Entitic vol] 75.1 fL Low 80.0-100.0 [facility] Comment on above: Performed By: #### 1 5685853, 9789104, 5288307, 29331868, 8561195, 4275555, 2041899 ####[address] [place] [address] Platelet mean volume (Bld) [Entitic vol] 7.5 fL Normal 6.4-10.8 [facility] Comment on above: Performed By: #### 1 3727251, 4942373, 0918704, 53827820, 5811808, 8742263, 5357242 ####[facility] [address] [place] [address] Platelets (Bld) [#/Vol] 369.0 E9/L Normal 150.0-500.0 [facility] Comment on above: Performed By: #### 1 1101759, 3962889, 7395757, 56268326, 5624876, 6674290, 3139224 ####[facility] [address] [place] [address] RBC (Bld) [#/Vol] 3.5 E12/L Low 4.3-5.9 [facility] Comment on above: Performed By: #### 1 8362242, 8033490, 0551789, 78898550, 2345183, 2630724, 5632285 ####[facility] [address] [place] [address] WBC corrected for nucl RBC Auto (Bld) [#/Vol] 7.5 E9/L Normal 4.0-11.0 [facility] Comment on above: Performed By: #### 1 4515817, 8940739, 7510823, 57732519, 1737486, 3059471, 2703524 ####[facility] [address] [place] [address] CHEMISTRYOrdered By: Lab ROP User on 08-18-2022 Glucose [Mass/Vol] 157 mg/dL High 55 - 99 mg/dL [facility] POC Subsection Comment on above: Result Comment: Katty todd Meter POC Device SN [id number] Invalid Interpretation Code [facility] POC Subsection POC User ID [id number] Invalid Interpretation Code [facility] POC Subsection POC Username LESA AGUILAR Invalid Interpretation Code [facility] POC Subsection Glucose [Mass/Vol] 126 mg/dL High 55 - 99 mg/dL [facility] POC Subsection Comment on above: Result Comment: Katty todd Meter POC Device SN [id number] Invalid Interpretation Code [facility] POC Subsection POC User ID [id number] Invalid Interpretation Code [facility] POC Subsection POC Username LESA AGUILAR Invalid Interpretation Code [facility] POC Subsection CHEMISTRYOrdered By: SYSTEM SYSTEM on 08-18-2022 Anion gap [Moles/Vol] 11 mmol/L Normal 6 - 16 mEq/L [facility] Calcium [Mass/Vol] 8.5 mg/dL Low 8.9 - 11. 1 mg/dL [facility] Chloride [Moles/Vol] 105 mmol/L Normal 101 - 1 11 mmol/L [facility] CO2 [Moles/Vol] 26 mmol/L Normal 21 - 31 mmol/L [facility] Creatinine [Mass/Vol] 1.2 mg/dL Normal 0.5 - 1.3 mg/dL [facility] GFR/1.73 sq M.predicted among blacks MDRD (S/P/Bld) [Vol rate/Area] mL/min/1.73 m2 Normal >=59mL/min/1 .73 m2 [facility] Chem S GFR/1.73 sq M.predicted among non-blacks MDRD (S/P/Bld) [Vol rate/Area] mL/min/1.73 m2 Normal >=59mL/min/1 .73 m2 [facility] Chem S Glucose [Mass/Vol] 141 mg/dL Normal 55 - 199 mg/dL [facility] Magnesium [Mass/Vol] 1.9 mg/dL Normal 1.3 - 2 .4 mg/dL [facility] Phosphate [Mass/Vol] 3.4 mg/dL Normal 1.9 - 4 .6 mg/dL [facility] Potassium [Moles/Vol] 3.7 mmol/L Normal 3.5 - 5.3 mmol/L [facility] Sodium [Moles/Vol] 138 mmol/L Normal 135 - 145 mmol/L [facility] Urea nitrogen [Mass/Vol] 25 mg/dL High 5 - 21 mg/dL [facility] Urea nitrogen/Creatinine [Mass ratio] 21 mg/mg High 10 - 20 [facility] Vancomycin peak [Moles/Vol] 15 microgram/mL Invalid Interpretation Code 20 - 40 mcg/mL [facility] Comment on above: Result Comment: Crit ical Result S_VANC_P:15.0 Called to SAMIR VALENZUELA AT 3S by ROBBI MIRANDA And Read Back For Confirmation at: 08/18/2022 07:23:55 Capillary Glucose POCon 04- Glucose [Mass/Vol] 157 mg/dL High 55-99 [facility] Comment on above: Result Comment: Katty todd Meter Performed By: #### 2 [id number] ####[facility] [address] [place] [address] Glucose [Mass/Vol] 126 mg/dL High 55-99 [facility] Comment on above: Result Comment: Katty todd Meter Performed By: #### 2 93707877 ####[facility] [address] [place] [address] Ferritinon 08-18-2022 Ferritin [Mass/Vol] 26 ng/mL Normal 24-336 [facility] Comment on above: Result Comment: NORM ALS MEN <30 YRS 16-132 ng/mL MEN >30 YRS 8-338 ng/mL WOMEN (PREMEN) 6-104 ng/mL WOMEN (POSTMEN) 12-210 ng/mL Performed By: #### 2 872220, 3972616, 22170316, 39429008, 9849450, 1209105, 2153061, 44234328, 5782723, 2491650 ####[facility] [address] [place] [address] HEMATOLOGYOrdered By: SYSTEM SYSTEM on 08-18-2022 Basophils/100 WBC (Bld) 0.7 % Normal 0.0 - 2.0 % [facility]eAutoSS Basophils/Leukocytes Auto (Bld) [Pure # fraction] 0.1 E9/L Normal 0.0 - 0.2 E9/L [facility]eAuto[facility] Eosinophils/100 WBC (Bld) 5.8 % Normal 0.0 - 8.0 % [facility]eAutoSS Eosinophils/Leukocyte s Auto (Bld) [Pure # fraction] 0.4 E9/L Normal 0.0 - 0.5 E9/L [facility]eAutoSS Lymphocytes/100 WBC (Bld) 25.6 % Normal 14.0 - 50.0 % [facility]eAutoSS Lymphocytes/Leukocyte s Auto (Bld) [Pure # fraction] 1.9 E9/L Normal 1.0 - 4.0 E9/L [facility]eAutoSS Monocytes/100 WBC (Bld) 5.7 % Normal 4.0 - 14.0 % [facility]eAutoSS Monocytes/Leukocytes Auto (Bld) [Pure # fraction] 0.4 E9/L Normal 0.2 - 1.0 E9/L [facility]Auto[facility] Neutrophils/100 WBC (Bld) 62.2 % Normal 36.0 - 75.0 % [facility]Auto[facility] Neutrophils/Leukocyte s Auto (Bld) [Pure # fraction] 4.6 E9/L Normal 2.0 - 7.5 E9/L [facility] HemeAutoSS HEMATOLOGYOrdered By: Carola Limon on 08-18-2022 Erythrocyte distribution width (RBC) [Ratio] 16.0 % High 10.9 - 14.2 % [facility] Hematocrit (Bld) [Volume fraction] 26.2 % Low 37.7 - 49.0 % [facility] Hemoglobin (Bld) [Mass/Vol] 8.1 g/dL Low 13.5 - 17.5 gm/dL [facility] Hypochromia Auto Ql (Bld) Present (08/18/22 6:01 AM) Normal [facility] HemeManSS MCH (RBC) [Entitic mass] 23.1 pg Low 27.0 - 34.0 pg [facility]Auto[facility] MCHC (RBC) [Mass/Vol] 30.8 g/dL Low 31.4 - 36.0 gm/dL [facility] MCV (RBC) [Entitic vol] 75.1 fL Low 80.0 - 100.0 fL [facility] Microcytes Ql (Bld) Present (08/18/22 6:01 AM) Normal [facility]eManSS Morphology Errol (Bld) [Interp] See Morphology (08/18/22 6:01 AM) Normal [facility]eManSS Platelet mean volume (Bld) [Entitic vol] 7.5 fL Normal 6.4 - 10.8 fL [facility]eAutoSS Platelets (Bld) [#/Vol] 369.0 E9/L Normal 150.0 - 500.0 E9/L [facility]Auto[facility] RBC (Bld) [#/Vol] 3.5 E12/L Low 4.3 - 5.9 E12/L [facility]Auto[facility] WBC corrected for nucl RBC Auto (Bld) [#/Vol] 7.5 E9/L Normal 4.0 - 11.0 E9/L [facility] Inpatient Patient Summaryon 08-18-2022 Inpatient Patient Summary Normal [facility] Interdisciplinary Note - Virgil e Manageron 08-18-2022 Interdisciplinary Note - Pharmacy Analyst Normal [facility] Comment on above: Result Comment: Elec tronically Signed By: Franci Peace\Date and Time Signed: 08/18/22 10:16 EDT IntraOperative Documentson 0 08-18-2022 IntraOperative Documents [id number]#1.00CD:127 Normal [facility] Magnesiumon 08-18-2022 Magnesium [Mass/Vol] 1.9 mg/dL Normal 1.3-2.4 [facility] Comment on above: Performed By: #### 1 4675380, 1502420, 5187123, 38441961, 8610975, 8505934, 2979421 ####[facility] [address] [place] [address] Monitor Recordon 08-18-2022 Monitor Record [id number]#1.00CD:127 Normal [facility] Monitor Record [id number]#1.00CD:127 Normal [facility] Morphon 08-18-2022 Hypochromia Auto Ql (Bld) Present Normal [facility] Comment on above: Order Comment: Order Added by Discern Expert. Performed By: #### 1 8082201, 8348866, 1125874, 44468705, 3964222, 6504900, 2420429 ####[facility] [address] [place] [address] Microcytes Ql (Bld) Present Normal [facility] Comment on above: Order Comment: Order Added by Discern Expert. Performed By: #### 1 1115554, 5773071, 8375970, 27181626, 0077105, 5613880, 7176734 ####[facility] [address] [place] [address] Morphology Errol (Bld) [Interp] See Morphology Normal [facility] Comment on above: Order Comment: Order Added by Discern Expert. Performed By: #### 1 5463310, 0467861, 3890245, 77769584, 5287564, 0706406, 8329965 ####[facility] [address] [place] [address] Phosphoruson 08-18-2022 Phosphate [Mass/Vol] 3.4 mg/dL Normal 1.9-4.6 [facility] Comment on above: Performed By: #### 1 2730136, 0202598, 5229992, 59814230, 4343814, 2347021, 5087710 ####[facility] [address] [place] [address] Progress Note - Pharmacyon 0 08-18-2022 Progress Note - Pharmacy Normal [facility] Progress Note-Nurseon 2022 Progress Note-Nurse Normal [facility] Vanco Peakon 08-18-2022 VANCOMYCIN 15 microgram/mL Abnormal 20-40 [facility] Comment on above: Order Comment: pleas e draw level one hour after infusion Result Comment: Crit ical Result S_VANC_P:15.0 Called to SAMIR VALENZUELA AT 3S by ROBBI MIRANDA And Read Back For Confirmation at: 08/18/2022 07:23:55 Performed By: #### 2 161765 ####[facility] [address] [place] [address] XR Chest Single Viewon 08-18 XR Chest Single View Normal [facility] eGFRon 08-18-2022 GFR/1.73 sq M.predicted among blacks MDRD (S/P/Bld) [Vol rate/Area] mL/min/{1.73_m2} Normal >=59 [facility] Comment on above: Order Comment: Order added by Discern Expert. Result Comment: eGFR is race adjusted. AA=. Performed By: #### 1 3341280, 9516946, 1900798, 30825334, 4977990, 3087589, 1991753 ####[facility] [address] [place] [address] GFR/1.73 sq M.predicted among non-blacks MDRD (S/P/Bld) [Vol rate/Area] mL/min/{1.73_m2} Normal >=59 [facility] Comment on above: Order Comment: Order added by Discern Expert. Result Comment: Choral Director claus kidney disease could be indicated at eGFR's of less than 60 mL/min/1.73m2. Kidney failure is indicated at less than 15 mL/min/1.73m2. Performed By: #### 1 6020814, 8676075, 0272875, 32623963, 7977627, 0272329, 6011413 ####[facility] [address] [place] [address] Auto Diffon 08-17-2022 Basophils/100 WBC (Bld) 1.0 % Normal 0.0-2.0 [facility] Comment on above: Order Comment: Order Added by Frankie Expert. Performed By: #### 2 448018, 25570949, 3592130, 5163573, 95602483, 6193804 ####[facility] [address] [place] [address] Basophils/Leukocytes Auto (Bld) [Pure # fraction] 0.1 E9/L Normal 0.0-0.2 [facility] Comment on above: Order Comment: Order Added by Frankie Expert. Performed By: #### 2 955127, 23807303, 7692467, 7852073, 13367899, 6483513 ####[facility] [address] [place] [address] Eosinophils/100 WBC (Bld) 7.1 % Normal 0.0-8.0 [facility] Comment on above: Order Comment: Order Added by Frankie Expert. Performed By: #### 2 044485, 78417817, 4594829, 4111218, 55347945, 3970452 ####[facility] [address] [place] [address] Eosinophils/Leukocyte s Auto (Bld) [Pure # fraction] 0.4 E9/L Normal 0.0-0.5 [facility] Comment on above: Order Comment: Order Added by Frankie Expert. Performed By: #### 2 260623, 43844054, 1660520, 0356181, 70134755, 2198650 ####[address] [place] [address] Lymphocytes/100 WBC (Bld) 27.2 % Normal 14.0-50.0 [facility] Comment on above: Order Comment: Order Added by Discern Expert. Performed By: #### 2 430066, 43468638, 3734732, 6349621, 63437173, 1544315 ####[address] [address] Lymphocytes/Leukocyte s Auto (Bld) [Pure # fraction] 1.6 E9/L Normal 1.0-4.0 [facility] Comment on above: Order Comment: Order Added by Frankie Expert. Performed By: #### 2 373333, 73204091, 7729568, 5387629, 38586266, 2417668 ####[address] [address] Monocytes/100 WBC (Bld) 6.3 % Normal 4.0-14.0 [facility] Comment on above: Order Comment: Order Added by Frankie Expert. Performed By: #### 2 265202, 47016472, 1558097, 3042761, 14270680, 4599612 ####[address] [address] Monocytes/Leukocytes Auto (Bld) [Pure # fraction] 0.4 E9/L Normal 0.2-1.0 [facility] Comment on above: Order Comment: Order Added by Frankie Expert. Performed By: #### 2 371133, 15469879, 2658471, 2188743, 78947958, 4282972 ####[address] [address] Neutrophils/100 WBC (Bld) 58.4 % Normal 36.0-75.0 [facility] Comment on above: Order Comment: Order Added by Frankie Expert. Performed By: #### 2 369035, 96515441, 0835323, 1106393, 14116500, 4580840 ####[facility] [address] [place] [address] Neutrophils/Leukocyte s Auto (Bld) [Pure # fraction] 3.4 E9/L Normal 2.0-7.5 [facility] Comment on above: Order Comment: Order Added by Discern Expert. Performed By: #### 2 365671, 79710952, 9143848, 6411894, 27016770, 3939386 ####[facility] [address] [place] [address] BMPon 08-17-2022 Anion gap [Moles/Vol] 11 mmol/L Normal 6-16 [facility] Comment on above: Performed By: #### 2 644517, 88942948, 4809921, 5045135, 97750150, 0537452 ####[facility] [address] [place] [address] Calcium [Mass/Vol] 8.4 mg/dL Low 8.9-11.1 [facility] Comment on above: Performed By: #### 2 949270, 94536329, 2341872, 3595628, 06672411, 2031413 ####[facility] [address] [place] [address] Chloride [Moles/Vol] 104 mmol/L Normal 101-111 [facility] Comment on above: Performed By: #### 2 230949, 65994389, 2871794, 6245208, 52984410, 3529965 ####[facility] [address] [place] [address] CO2 [Moles/Vol] 25 mmol/L Normal 21-31 [facility] Comment on above: Performed By: #### 2 401390, 04596492, 6410857, 3224221, 52606709, 5652692 ####[facility] [address] [place] [address] Creatinine [Mass/Vol] 1.3 mg/dL Normal 0.5-1.3 [facility] Comment on above: Performed By: #### 2 892696, 65142681, 6106904, 2798231, 02288889, 4305758 ####[facility] [address] [place] [address] Glucose [Mass/Vol] 236 mg/dL High 55-199 [facility] Comment on above: Result Comment: If t his glucose result represents a fasting glucose, interpretation should refer to the following reference range: 55-99 mg/dL Performed By: #### 2 555390, 55260040, 0939547, 3914909, 48249366, 9192976 ####[facility] [address] [place] [address] Potassium [Moles/Vol] 3.8 mmol/L Normal 3.5-5.3 [facility] Comment on above: Performed By: #### 2 603491, 72822541, 9391864, 4072931, 17103544, 9272028 ####[facility] [address] [place] [address] Sodium [Moles/Vol] 136 mmol/L Normal 135-145 [facility] Comment on above: Performed By: #### 2 572865, 64807222, 9057162, 9835998, 96735185, 7873223 ####[facility] [address] [place] [address] Urea nitrogen [Mass/Vol] 26 mg/dL High 5-21 [facility] Comment on above: Performed By: #### 2 231477, 45315254, 0772000, 5414370, 26912125, 2792976 ####[facility] [address] [place] [address] Urea nitrogen/Creatinine [Mass ratio] 20 No Units Normal 10-20 [facility] Comment on above: Performed By: #### 2 784443, 10725279, 1874419, 4419837, 35743755, 0372458 ####[facility] [address] [place] [address] CBC w/ Auto Diffon 3 Erythrocyte distribution width (RBC) [Ratio] 16.1 % High 10.9-14.2 [facility] Comment on above: Performed By: #### 2 312618, 19262183, 8814554, 8479816, 46060216, 6938891 ####[address] [address] Hematocrit (Bld) [Volume fraction] 26.7 % Low 37.7-49.0 [facility] Comment on above: Performed By: #### 2 390169, 38462091, 5103800, 3060960, 61602839, 6101347 ####[address] [address] Hemoglobin (Bld) [Mass/Vol] 8.3 g/dL Low 13.5-17.5 [facility] Comment on above: Performed By: #### 2 350740, 70084388, 1450454, 8826702, 00740453, 8355444 ####[place] [id number] MCH (RBC) [Entitic mass] 23.3 pg Low 27.0-34.0 [facility] Comment on above: Performed By: #### 2 894296, 47785407, 1276714, 3165760, 45305006, 0376961 ####[address] [address] MCHC (RBC) [Mass/Vol] 31.1 g/dL Low 31.4-36.0 [facility] Comment on above: Performed By: #### 2 215980, 63462928, 2405452, 5849997, 99524724, 4138151 ####[address] [address] MCV (RBC) [Entitic vol] 75.0 fL Low 80.0-100.0 [facility] Comment on above: Performed By: #### 2 380141, 74732425, 8433847, 5889317, 05941904, 6193720 ####[address] [place] [address] Platelet mean volume (Bld) [Entitic vol] 7.8 fL Normal 6.4-10.8 [facility] Comment on above: Performed By: #### 2 836840, 39789478, 9951490, 6683882, 40609643, 9382379 ####[address] [address] Platelets (Bld) [#/Vol] 353.0 E9/L Normal 150.0-500.0 [facility] Comment on above: Performed By: #### 2 809298, 61517784, 8810041, 5284084, 23238681, 5553936 ####[address] [address] RBC (Bld) [#/Vol] 3.6 E12/L Low 4.3-5.9 [facility] Comment on above: Performed By: #### 2 638124, 66807278, 9715038, 7970787, 27833561, 6126811 ####[facility] [address] [place] [address] WBC corrected for nucl RBC Auto (Bld) [#/Vol] 5.9 E9/L Normal 4.0-11.0 [facility] Comment on above: Performed By: #### 2 369938, 18969168, 6538899, 8234045, 49915614, 2472007 ####[address] [address] CHEMISTRYOrdered By: Lab ROP User on 08-17-2022 Glucose [Mass/Vol] 169 mg/dL High 55 - 99 mg/dL [facility] POC Subsection Comment on above: Result Comment: Katty todd Meter POC Device SN [id number] Invalid Interpretation Code [facility] POC Subsection POC User ID [id number] Invalid Interpretation Code [facility] POC Subsection POC Username MIN SHARPE Invalid Interpretation Code [facility] POC Subsection CHEMISTRYOrdered By: SYSTEM SYSTEM on 08-17-2022 Anion gap [Moles/Vol] 11 mmol/L Normal 6 - 16 mEq/L [facility] Calcium [Mass/Vol] 8.4 mg/dL Low 8.9 - 11. 1 mg/dL [facility] Chloride [Moles/Vol] 104 mmol/L Normal 101 - 1 11 mmol/L [facility] CO2 [Moles/Vol] 25 mmol/L Normal 21 - 31 mmol/L [facility] Creatinine [Mass/Vol] 1.3 mg/dL Normal 0.5 - 1.3 mg/dL [facility] GFR/1.73 sq M.predicted among blacks MDRD (S/P/Bld) [Vol rate/Area] mL/min/1.73 m2 Normal >=59mL/min/1 .73 m2 [facility] Chem S GFR/1.73 sq M.predicted among non-blacks MDRD (S/P/Bld) [Vol rate/Area] 56 mL/min/1.73 m2 Low >=59mL/min/1 .73 m2 [facility] Chem S Glucose [Mass/Vol] 236 mg/dL High 55 - 199 mg/dL [facility] Remisol Potassium [Moles/Vol] 3.8 mmol/L Normal 3.5 - 5.3 mmol/L [facility] Sodium [Moles/Vol] 136 mmol/L Normal 135 - 145 mmol/L [facility] Urea nitrogen [Mass/Vol] 26 mg/dL High 5 - 21 mg/dL [facility] Remisol Urea nitrogen/Creatinine [Mass ratio] 20 mg/mg Normal 10 - 20 [facility] Vancomycin trough [Moles/Vol] 20 microgram/mL Normal 10 - 20 mcg/mL [facility] Remisol Capillary Glucose POC Glucose [Mass/Vol] 169 mg/dL High 55-99 [facility] Comment on above: Result Comment: Katty todd Meter Performed By: #### 2 [id number] ####[facility] [address] [place] [address] Glucose [Mass/Vol] 162 mg/dL High 55-99 [facility] Comment on above: Result Comment: Mary flores RN/ Performed By: #### 2 [id number] ####[facility] [address] [place] [address] Glucose [Mass/Vol] 146 mg/dL High 55-99 [facility] Comment on above: Result Comment: Mary COLLAZO Performed By: #### 2 [id number] ####[facility] [address] [place] [address] Glucose [Mass/Vol] 138 mg/dL High 55-99 [facility] Comment on above: Result Comment: Mary COLLAZO Performed By: #### 2 [id number] ####[facility] [address] [place] [address] HEMATOLOGYOrdered By: [employer] SYSTEM on 08-17-2022 Basophils/100 WBC (Bld) 1.0 % Normal 0.0 - 2.0 % [facility] Basophils/Leukocytes Auto (Bld) [Pure # fraction] 0.1 E9/L Normal 0.0 - 0.2 E9/L [facility] Eosinophils/100 WBC (Bld) 7.1 % Normal 0.0 - 8.0 % [facility] Eosinophils/Leukocyte s Auto (Bld) [Pure # fraction] 0.4 E9/L Normal 0.0 - 0.5 E9/L [facility] Lymphocytes/100 WBC (Bld) 27.2 % Normal 14.0 - 50.0 % [facility] Lymphocytes/Leukocyte s Auto (Bld) [Pure # fraction] 1.6 E9/L Normal 1.0 - 4.0 E9/L [facility] Monocytes/100 WBC (Bld) 6.3 % Normal 4.0 - 14.0 % [facility] Monocytes/Leukocytes Auto (Bld) [Pure # fraction] 0.4 E9/L Normal 0.2 - 1.0 E9/L [facility] Neutrophils/100 WBC (Bld) 58.4 % Normal 36.0 - 75.0 % [facility] Neutrophils/Leukocyte s Auto (Bld) [Pure # fraction] 3.4 E9/L Normal 2.0 - 7.5 E9/L [facility] HEMATOLOGYOrdered By: Tomy Medrano on 08-17-2022 Erythrocyte distribution width (RBC) [Ratio] 16.1 % High 10.9 - 14.2 % [facility] Hematocrit (Bld) [Volume fraction] 26.7 % Low 37.7 - 49.0 % [facility] Hemoglobin (Bld) [Mass/Vol] 8.3 g/dL Low 13.5 - 17.5 gm/dL [facility] Hypochromia Auto Ql (Bld) Present (08/17/22 4:13 AM) Normal [facility]Man[facility] MCH (RBC) [Entitic mass] 23.3 pg Low 27.0 - 34.0 pg [facility] MCHC (RBC) [Mass/Vol] 31.1 g/dL Low 31.4 - 36.0 gm/dL [facility] MCV (RBC) [Entitic vol] 75.0 fL Low 80.0 - 100.0 fL [facility] Microcytes Ql (Bld) Present (08/17/22 4:13 AM) Normal [facility] Morphology Errol (Bld) [Interp] See Morphology 1 (08/17/22 4:13 AM) Normal [facility] Comment on above: Result Comment: Resu lts are consistent with previous path review performed on 08-13-22. Reviewed by dov. Platelet mean volume (Bld) [Entitic vol] 7.8 fL Normal 6.4 - 10.8 fL [facility] Platelets (Bld) [#/Vol] 353.0 E9/L Normal 150.0 - 500.0 E9/L [facility] RBC (Bld) [#/Vol] 3.6 E12/L Low 4.3 - 5.9 E12/L [facility] WBC corrected for nucl RBC Auto (Bld) [#/Vol] 5.9 E9/L Normal 4.0 - 11.0 E9/L [facility] Morphon 08-17-2022 Hypochromia Auto Ql (Bld) Present Normal [facility] Comment on above: Order Comment: Order Added by Discern Expert. Performed By: #### 2 930293, 49129338, 5429112, 2769169, 18232632, 5152269 ####[facility] [address] [place] [address] Microcytes Ql (Bld) Present Normal [facility] Comment on above: Order Comment: Order Added by Discern Expert. Performed By: #### 2 960650, 34173722, 3758084, 9513781, 99366569, 8175388 ####[facility] [address] [place] [address] Morphology Errol (Bld) [Interp] See Morphology Normal [facility] Comment on above: Order Comment: Order Added by Discern Expert. Result Comment: Resu lts are consistent with previous path review performed on 08-13-22. Reviewed by dov. Performed By: #### 2 042828, 92906900, 7361003, 1810647, 96562759, 6403634 ####[facility] [address] [place] [address] Progress Note - Pharmacyon 0 08-17-2022 Progress Note - Pharmacy Normal [facility] Progress Note-Nurseon 2022 Progress Note-Nurse Spoke to telepharmacy--vanco not okay to administer at this time, hold vanco and new orders will be placed based on 4am trough. Normal [facility] Progress Note-Physicianon Progress Note-Physician Normal [facility] Comment on above: Result Comment: Elec tronically Signed By: Geovanna GILBERT, Chaitanya Munoz\.br\Date and Time Signed: 08/17/22 10:04 EDT Vanco Troughon 08-17-2022 VANCOMYCIN 20 microgram/mL Normal 10-20 [facility] Comment on above: Order Comment: pleas e draw one hour prior to infusion Performed By: #### 2 804409, 60916840, 3075629, 2846865, 79610396, 2501256 ####[facility] [address] [place] [address] eGFRon 08-17-2022 GFR/1.73 sq M.predicted among blacks MDRD (S/P/Bld) [Vol rate/Area] mL/min/{1.73_m2} Normal >=59 [facility] Comment on above: Order Comment: Order added by Discern Expert. Result Comment: eGFR is race adjusted. AA=. Performed By: #### 2 455308, 77515776, 7235845, 3507682, 81110374, 5546366 ####[facility] [address] [place] [address] GFR/1.73 sq M.predicted among non-blacks MDRD (S/P/Bld) [Vol rate/Area] 56 mL/min/1.73 m2 Low >=59 [facility] Comment on above: Order Comment: Order added by Discern Expert. Result Comment: Choral Director claus kidney disease could be indicated at eGFR's of less than 60 mL/min/1.73m2. Kidney failure is indicated at less than 15 mL/min/1.73m2. Performed By: #### 2 978974, 36277620, 8734268, 2806601, 31671781, 5075088 ####[facility] [address] [place] [address] Auto Diffon 08-16-2022 Basophils/100 WBC (Bld) 1.1 % Normal 0.0-2.0 [facility] Comment on above: Order Comment: Order Added by Discern Expert. Performed By: #### 2 887102, 1548861, 92990372, 40774803, 8529435, 5355553, 3748667, 17867085, 0767019, 4370515 ####[facility] [address] [place] [address] Basophils/Leukocytes Auto (Bld) [Pure # fraction] 0.1 E9/L Normal 0.0-0.2 [facility] Comment on above: Order Comment: Order Added by Discern Expert. Performed By: #### 2 236727, 9769381, 32230399, 61401600, 3090121, 0291128, 6265526, 83712571, 6008428, 5206140 ####[facility] [address] [place] [address] Eosinophils/100 WBC (Bld) 6.9 % Normal 0.0-8.0 [facility] Comment on above: Order Comment: Order Added by Discern Expert. Performed By: #### 2 119297, 3833888, 47699796, 11124661, 2527456, 4452462, 0035936, 88095485, 9433182, 5002755 ####[place] [address] [place] [address] Eosinophils/Leukocyte s Auto (Bld) [Pure # fraction] 0.4 E9/L Normal 0.0-0.5 [facility] Comment on above: Order Comment: Order Added by Discern Expert. Performed By: #### 2 473353, 8694912, 57688859, 45604630, 6820416, 9748932, 0789982, 75607972, 4725323, 8215209 ####[place] [address] [place] [address] Lymphocytes/100 WBC (Bld) 31.7 % Normal 14.0-50.0 [facility] Comment on above: Order Comment: Order Added by Discern Expert. Performed By: #### 2 338239, 9055378, 54690802, 73217793, 5431059, 8493374, 3382528, 54893688, 7501140, 6466941 ####[place] [address] [place] [address] Lymphocytes/Leukocyte s Auto (Bld) [Pure # fraction] 1.9 E9/L Normal 1.0-4.0 [facility] Comment on above: Order Comment: Order Added by Discern Expert. Performed By: #### 2 955207, 1083914, 42110639, 04724976, 3448944, 7309696, 2026605, 66561650, 6471620, 1255402 ####[place] [address] [place] [address] Monocytes/100 WBC (Bld) 8.4 % Normal 4.0-14.0 [facility] Comment on above: Order Comment: Order Added by Discern Expert. Performed By: #### 2 666137, 3527586, 30048918, 26078093, 2773195, 5576920, 3486251, 58682717, 2801144, 6467176 ####[place] [address] [place] [address] Monocytes/Leukocytes Auto (Bld) [Pure # fraction] 0.5 E9/L Normal 0.2-1.0 [facility] Comment on above: Order Comment: Order Added by Discern Expert. Performed By: #### 2 406175, 5087809, 80706700, 65603076, 9696814, 6591837, 3070836, 28436068, 0355514, 4824653 ####[place] [address] [place] [address] Neutrophils/100 WBC (Bld) 51.9 % Normal 36.0-75.0 [facility] Comment on above: Order Comment: Order Added by Discern Expert. Performed By: #### 2 130273, 5022921, 94574193, 73541949, 4955707, 6399090, 2976476, 60925655, 3677315, 2700952 ####[place] [address] [place] [address] Neutrophils/Leukocyte s Auto (Bld) [Pure # fraction] 3.0 E9/L Normal 2.0-7.5 [facility] Comment on above: Order Comment: Order Added by Discern Expert. Performed By: #### 2 560447, 3936513, 91285400, 58373104, 9729129, 3151487, 4533340, 65129289, 4888673, 0252598 ####[place] [address] [place] [address] BMPon 08-16-2022 Anion gap [Moles/Vol] 11 mmol/L Normal 6-16 [facility] Comment on above: Performed By: #### 2 057984, 1831094, 57856066, 66802006, 7425448, 7220724, 9703909, 70601365, 0378387, 6490297 ####[place] [address] [place] [address] Calcium [Mass/Vol] 8.2 mg/dL Low 8.9-11.1 [facility] Comment on above: Performed By: #### 2 497069, 4999363, 00056096, 92683805, 4490437, 3661016, 0797462, 02696514, 3059646, 6756319 ####[facility] [address] [place] [address] Chloride [Moles/Vol] 105 mmol/L Normal 101-111 [facility] Comment on above: Performed By: #### 2 363503, 1569173, 42953244, 12505018, 2334757, 9238309, 6981582, 17998365, 9933867, 0872655 ####[facility] [address] [place] [address] CO2 [Moles/Vol] 25 mmol/L Normal 21-31 [facility] Comment on above: Performed By: #### 2 160227, 4118354, 44628708, 07687142, 2285703, 8728849, 1133588, 24178291, 7162217, 0459831 ####[facility] [address] [place] [address] Creatinine [Mass/Vol] 1.2 mg/dL Normal 0.5-1.3 [facility] Comment on above: Performed By: #### 2 585033, 5618951, 07752563, 96305977, 4893028, 6194126, 1314618, 16735527, 0525940, 1161728 ####[facility] [address] [place] [address] Glucose [Mass/Vol] 131 mg/dL Normal 55-199 [facility] Comment on above: Result Comment: If t his glucose result represents a fasting glucose, interpretation should refer to the following reference range: 55-99 mg/dL Performed By: #### 2 312315, 0257785, 56533899, 13270711, 9228483, 9352175, 7875219, 40455785, 0749878, 7505034 ####[facility] [address] [place] [address] Potassium [Moles/Vol] 4.0 mmol/L Normal 3.5-5.3 [facility] Comment on above: Performed By: #### 2 861725, 8824985, 11323729, 44146621, 6835951, 2652062, 5100656, 92277990, 4848260, 7090323 ####[facility] [address] [place] [address] Sodium [Moles/Vol] 137 mmol/L Normal 135-145 [facility] Comment on above: Performed By: #### 2 450788, 0173865, 06734005, 49702443, 1282624, 3468931, 7804375, 90563594, 5739743, 0002053 ####[facility] [address] [place] [address] Urea nitrogen [Mass/Vol] 24 mg/dL High 5-21 [facility] Comment on above: Performed By: #### 2 810901, 9835072, 92316416, 05669856, 5164004, 6111705, 3686198, 44501842, 4017643, 0039636 ####[facility] [address] [place] [address] Urea nitrogen/Creatinine [Mass ratio] 20 No Units Normal 10-20 [facility] Comment on above: Performed By: #### 2 647620, 8461557, 75734366, 03546137, 7463215, 2679689, 1212804, 24349738, 3613030, 1781035 ####[facility] [address] [place] [address] CBC w/ Auto Diffon 3 Erythrocyte distribution width (RBC) [Ratio] 16.0 % High 10.9-14.2 [facility] Comment on above: Performed By: #### 2 890825, 7060450, 84805311, 88977307, 0249494, 5601839, 6463467, 53380233, 7112446, 5864779 ####[place] [address] [place] [address] Hematocrit (Bld) [Volume fraction] 23.4 % Low 37.7-49.0 [facility] Comment on above: Performed By: #### 2 677730, 1274926, 37435870, 90194252, 2621488, 4369549, 8392843, 42412054, 5142438, 5413282 ####[facility] [address] [place] [address] Hemoglobin (Bld) [Mass/Vol] 7.4 g/dL Low 13.5-17.5 [facility] Comment on above: Performed By: #### 2 214248, 8896962, 50726338, 88964619, 0003586, 3568678, 3029665, 14456662, 8590059, 6715923 ####[address] [address] MCH (RBC) [Entitic mass] 23.6 pg Low 27.0-34.0 [facility] Comment on above: Performed By: #### 2 577165, 6131888, 46537647, 19264098, 9602749, 1606785, 2299110, 75295194, 3205034, 9216982 ####[address] [address] MCHC (RBC) [Mass/Vol] 31.6 g/dL Normal 31.4-36.0 [facility] Comment on above: Performed By: #### 2 952405, 4968028, 32592771, 13998520, 9736686, 2280772, 8095714, 94935752, 8025313, 4927876 ####[address] [address] MCV (RBC) [Entitic vol] 74.6 fL Low 80.0-100.0 [facility] Comment on above: Performed By: #### 2 878068, 7565612, 69957977, 39289006, 1695090, 7656641, 2328997, 51179903, 9970755, 0523542 ####[place] [address] [place] [address] Platelet mean volume (Bld) [Entitic vol] 8.2 fL Normal 6.4-10.8 [facility] Comment on above: Performed By: #### 2 654220, 0412938, 22110800, 21156903, 6929845, 4558048, 9451534, 78159508, 9099201, 1164411 ####[facility] [address] [place] [address] Platelets (Bld) [#/Vol] 291.0 E9/L Normal 150.0-500.0 [facility] Comment on above: Performed By: #### 2 182783, 2765963, 41779346, 17755249, 5655900, 4558069, 7037781, 28286791, 3312837, 5584799 ####[facility] [address] [place] [address] RBC (Bld) [#/Vol] 3.1 E12/L Low 4.3-5.9 [facility] Comment on above: Performed By: #### 2 121131, 4262063, 85713840, 71820969, 5892957, 8501899, 2536406, 92741601, 5898953, 5956375 ####[facility] [address] [place] [address] WBC corrected for nucl RBC Auto (Bld) [#/Vol] 5.9 E9/L Normal 4.0-11.0 [facility] Comment on above: Performed By: #### 2 830235, 9433921, 82807109, 01450818, 2886806, 7356087, 5657897, 35841515, 4081355, 5037857 ####[facility] [address] [place] [address] CHEMISTRYOrdered By: SYSTEM SYSTEM on 08-16-2022 Vancomycin peak [Moles/Vol] 33 microgram/mL Normal 20 - 40 mcg/mL [facility] Anion gap [Moles/Vol] 11 mmol/L Normal 6 - 16 mEq/L F [facility] Calcium [Mass/Vol] 8.2 mg/dL Low 8.9 - 11. 1 mg/dL [facility] Chloride [Moles/Vol] 105 mmol/L Normal 101 - 1 11 mmol/L [facility] CO2 [Moles/Vol] 25 mmol/L Normal 21 - 31 mmol/L [facility] Creatinine [Mass/Vol] 1.2 mg/dL Normal 0.5 - 1.3 mg/dL [facility] Ferritin [Mass/Vol] 26 ng/mL Normal 24 - 336 ng/mL [facility] GFR/1.73 sq M.predicted among blacks MDRD (S/P/Bld) [Vol rate/Area] mL/min/1.73 m2 Normal >=59mL/min/1 .73 m2 [facility] Chem S GFR/1.73 sq M.predicted among non-blacks MDRD (S/P/Bld) [Vol rate/Area] mL/min/1.73 m2 Normal >=59mL/min/1 .73 m2 FT Chem S Glucose [Mass/Vol] 131 mg/dL Normal 55 - 199 mg/dL [facility] Iron [Mass/Vol] 25 ug/dL Low 35 - 153 mcg/dL [facility] Iron binding capacity [Mass/Vol] 244 ug/dL Low 250 - 400 mcg/dL [facility] Iron saturation [Mass fraction] 10 % Low 20 - 50 % [facility] Potassium [Moles/Vol] 4.0 mmol/L Normal 3.5 - 5.3 mmol/L [facility] Sodium [Moles/Vol] 137 mmol/L Normal 135 - 145 mmol/L [facility] Transferrin [Mass/Vol] 175 mg/dL Low 200 - 370 mg/dL [facility] TSH Qn 4.35 m[IU]/L Normal 0.34 - 5.60 mcIU/mL [facility] Urea nitrogen [Mass/Vol] 24 mg/dL High 5 - 21 mg/dL [facility] Urea nitrogen/Creatinine [Mass ratio] 20 mg/mg Normal 10 - 20 [facility] Capillary Glucose POCon Glucose [Mass/Vol] 243 mg/dL High 55-99 [facility] Comment on above: Result Comment: Mary flores RN/ Performed By: #### 2 [id number] ####[facility] [address] [place] [id number] Glucose [Mass/Vol] 154 mg/dL High 55-99 [facility] Comment on above: Result Comment: Mary flores RN/ Performed By: #### 2 [id number] ####[facility] [address] [place] [address] Glucose [Mass/Vol] 172 mg/dL High 55-99 [facility] Comment on above: Result Comment: Mary flores RN/ Performed By: #### 2 [id number] ####[facility] [address] [place] [address] Glucose [Mass/Vol] 118 mg/dL High 55-99 [facility] Comment on above: Result Comment: Mary flores RN/ Performed By: #### 2 [id number] ####[facility] [address] [place] [address] HEMATOLOGYOrdered By: SYSTEM SYSTEM on 08-16-2022 Basophils/100 WBC (Bld) 1.1 % Normal 0.0 - 2.0 % [facility] Basophils/Leukocytes Auto (Bld) [Pure # fraction] 0.1 E9/L Normal 0.0 - 0.2 E9/L [facility] Eosinophils/100 WBC (Bld) 6.9 % Normal 0.0 - 8.0 % [facility] Eosinophils/Leukocyte s Auto (Bld) [Pure # fraction] 0.4 E9/L Normal 0.0 - 0.5 E9/L [facility] Lymphocytes/100 WBC (Bld) 31.7 % Normal 14.0 - 50.0 % [facility] Lymphocytes/Leukocyte s Auto (Bld) [Pure # fraction] 1.9 E9/L Normal 1.0 - 4.0 E9/L [facility] Monocytes/100 WBC (Bld) 8.4 % Normal 4.0 - 14.0 % [facility] Monocytes/Leukocytes Auto (Bld) [Pure # fraction] 0.5 E9/L Normal 0.2 - 1.0 E9/L [facility] Neutrophils/100 WBC (Bld) 51.9 % Normal 36.0 - 75.0 % [facility] Neutrophils/Leukocyte s Auto (Bld) [Pure # fraction] 3.0 E9/L Normal 2.0 - 7.5 E9/L [facility] HEMATOLOGYOrdered By: Franci Lane on 08-16-2022 Erythrocyte distribution width (RBC) [Ratio] 16.0 % High 10.9 - 14.2 % [facility] Hematocrit (Bld) [Volume fraction] 23.4 % Low 37.7 - 49.0 % [facility] Hemoglobin (Bld) [Mass/Vol] 7.4 g/dL Low 13.5 - 17.5 gm/dL [facility] Hypochromia Auto Ql (Bld) Present (08/16/22 6:16 AM) Normal [facility] MCH (RBC) [Entitic mass] 23.6 pg Low 27.0 - 34.0 pg [facility] MCHC (RBC) [Mass/Vol] 31.6 g/dL Normal 31.4 - 36.0 gm/dL [facility] MCV (RBC) [Entitic vol] 74.6 fL Low 80.0 - 100.0 fL [facility] Microcytes Ql (Bld) Present (08/16/22 6:16 AM) Normal [facility] Morphology Errol (Bld) [Interp] See Morphology (08/16/22 6:16 AM) Normal [facility] Platelet mean volume (Bld) [Entitic vol] 8.2 fL Normal 6.4 - 10.8 fL [facility] Platelets (Bld) [#/Vol] 291.0 E9/L Normal 150.0 - 500.0 E9/L [facility] RBC (Bld) [#/Vol] 3.1 E12/L Low 4.3 - 5.9 E12/L [facility] WBC corrected for nucl RBC Auto (Bld) [#/Vol] 5.9 E9/L Normal 4.0 - 11.0 E9/L [facility] Ironon 08-16-2022 Iron [Mass/Vol] 25 microgram/dL Low 35-153 [facility] Comment on above: Order Comment: Iron order added by Discern Rule: [email or web address]_add_iron_trans . Performed By: #### 2 [id number], [id number], [id number], [id number] ####[id number] [place] [address] Iron Saturationon 08-16-2022 Iron binding capacity [Mass/Vol] 244 microgram/dL Low 250-400 [facility] Comment on above: Performed By: #### 2 [id number], [id number], [id number], [id number], [id number], [id number], [id number], [id number] ####[address] [place] [place] [address] Iron saturation [Mass fraction] 10 % Low 20-50 [facility] Comment on above: Performed By: #### 2 719372, 0598860, 28297414, 73841691, 3759780, 2138950, 2994947, 88769215, 7812108, 8408731 ####[address] [place] [address] Monitor Recordon 08-16-2022 Monitor Record [id number]#1.00CD:127 Normal [facility] Monitor Record [id number]#1.00CD:127 Normal [facility] Monitor Record [id number]#1.00CD:127 Normal [facility] Morphon 08-16-2022 Hypochromia Auto Ql (Bld) Present Normal [facility] Comment on above: Order Comment: Order Added by Discern Expert. Performed By: #### 2 809138, 6871776, 64536553, 25337170, 9672240, 9759435, 3206053, 97188867, 6815704, 4269453 ####[facility] [address] [place] [address] Microcytes Ql (Bld) Present Normal [facility] Comment on above: Order Comment: Order Added by Discern Expert. Performed By: #### 2 623776, 3074536, 89095038, 40488714, 7418316, 9661672, 0649866, 55451236, 3378261, 7734369 ####[facility] [address] [place] [address] Morphology Errol (Bld) [Interp] See Morphology Normal [facility] Comment on above: Order Comment: Order Added by Discern Expert. Performed By: #### 2 369265, 9235027, 94565142, 54660140, 9245607, 3211173, 1501487, 00456270, 7456917, 6130051 ####[facility] [address] [place] [address] Progress Note-Physicianon Progress Note-Physician Normal [facility] Comment on above: Result Comment: Elec tronically Signed By: Geovanna GILBERT, Chaitanya Munoz\.br\Date and Time Signed: 08/16/22 15:09 EDT TSH With T4fr Reflexon 08-16 TSH Qn 4.35 m[IU]/L Normal 0.34-5.60 [facility] Comment on above: Performed By: #### 2 471526, 7373033, 56363013, 93166271, 2224079, 0957231, 5601294, 32665124, 4048984, 5108980 ####[facility] [address] [place] [address] Transferrinon 08-16-2022 Transferrin [Mass/Vol] 175 mg/dL Low 200-370 [facility] Comment on above: Order Comment: Trans melissa order added by Frankie Rule: gl_ftmc_add_iron_trans . Performed By: #### 2 479650, 7847802, 85845619, 57084786, 2230226, 4848993, 3072105, 60257017, 8374288, 5106440 ####[facility] [address] [place] [address] Vanco Peakon 08-16-2022 VANCOMYCIN 33 microgram/mL Normal 20-40 [facility] Comment on above: Order Comment: pleas e draw one hour after vancomycin infusion Performed By: #### 2 152106 ####[facility] [address] [place] [address] eGFRon 08-16-2022 GFR/1.73 sq M.predicted among blacks MDRD (S/P/Bld) [Vol rate/Area] mL/min/{1.73_m2} Normal >=59 [facility] Comment on above: Order Comment: Order added by Discern Expert. Result Comment: eGFR is race adjusted. AA=. Performed By: #### 2 586184, 1822099, 36873615, 15496941, 6536059, 7440974, 5442344, 04522480, 8867036, 8716574 ####[facility] [address] [place] [address] GFR/1.73 sq M.predicted among non-blacks MDRD (S/P/Bld) [Vol rate/Area] mL/min/{1.73_m2} Normal >=59 [facility] Comment on above: Order Comment: Order added by Discern Expert. Result Comment: Choral Director claus kidney disease could be indicated at eGFR's of less than 60 mL/min/1.73m2. Kidney failure is indicated at less than 15 mL/min/1.73m2. Performed By: #### 2 023532, 7893751, 15003656, 17311384, 6197991, 6434016, 6827220, 68677877, 5088163, 3871814 ####[facility] [address] [place] [address] Auto Diffon 08-15-2022 Basophils/100 WBC (Bld) 0.8 % Normal 0.0-2.0 [facility] Comment on above: Order Comment: Order Added by Discern Expert. Performed By: #### 1 2669528, 5239551, 22758645, 0649829, 0794701, 4713995, 489240627, 1685644, 6476234 ####[facility] [address] [place] [address] Basophils/Leukocytes Auto (Bld) [Pure # fraction] 0.1 E9/L Normal 0.0-0.2 [facility] Comment on above: Order Comment: Order Added by Discern Expert. Performed By: #### 1 6845501, 6041967, 77209507, 0686627, 2896273, 7156722, 168037643, 8154093, 1076145 ####[address] [place] [address] Eosinophils/100 WBC (Bld) 5.1 % Normal 0.0-8.0 [facility] Comment on above: Order Comment: Order Added by Discern Expert. Performed By: #### 1 0375218, 0837773, 59374498, 4801401, 1970542, 5529306, 981135796, 2717721, 1954680 ####[address] [address] Eosinophils/Leukocyte s Auto (Bld) [Pure # fraction] 0.3 E9/L Normal 0.0-0.5 [facility] Comment on above: Order Comment: Order Added by Discern Expert. Performed By: #### 1 8826633, 2192007, 14425834, 6269746, 9477233, 0800670, 364215088, 8715973, 5911935 ####[address] [place] [address] Lymphocytes/100 WBC (Bld) 23.3 % Normal 14.0-50.0 [facility] Comment on above: Order Comment: Order Added by Discern Expert. Performed By: #### 1 9470254, 1360409, 44839911, 1105646, 4028750, 8553200, 112979858, 9688580, 4978202 ####[address] [place] [address] Lymphocytes/Leukocyte s Auto (Bld) [Pure # fraction] 1.6 E9/L Normal 1.0-4.0 [facility] Comment on above: Order Comment: Order Added by Discern Expert. Performed By: #### 1 1556161, 8771251, 61017558, 1398642, 2791186, 0951350, 807157327, 4870361, 8472676 ####[facility] [address] [place] [address] Monocytes/100 WBC (Bld) 8.4 % Normal 4.0-14.0 [facility] Comment on above: Order Comment: Order Added by Discern Expert. Performed By: #### 1 5779229, 8619659, 38146851, 1736504, 8574401, 5779460, 204305405, 0692801, 8735490 ####[address] [place] [address] Monocytes/Leukocytes Auto (Bld) [Pure # fraction] 0.6 E9/L Normal 0.2-1.0 [facility] Comment on above: Order Comment: Order Added by Discern Expert. Performed By: #### 1 6841816, 7216401, 67004682, 7717848, 2237699, 2672864, 659987827, 8329555, 3149932 ####[address] [place] [address] Neutrophils/100 WBC (Bld) 62.4 % Normal 36.0-75.0 [facility] Comment on above: Order Comment: Order Added by Discern Expert. Performed By: #### 1 0856338, 6530329, 99265936, 8801902, 9763160, 9709096, 917961703, 2891482, 2729417 ####[facility] [address] [place] [address] Neutrophils/Leukocyte s Auto (Bld) [Pure # fraction] 4.2 E9/L Normal 2.0-7.5 [facility] Comment on above: Order Comment: Order Added by Discern Expert. Performed By: #### 1 8624413, 6806060, 84642003, 7538563, 4531135, 4634560, 571495099, 1061246, 6379510 ####[facility] [address] [place] [address] BMPon 08-15-2022 Anion gap [Moles/Vol] 10 mmol/L Normal 6-16 [facility] Comment on above: Performed By: #### 1 7967678, 2637942, 81026654, 8944252, 9434538, 2674058, 626501016, 7693841, 0198344 ####[facility] [address] [place] [address] Calcium [Mass/Vol] 8.2 mg/dL Low 8.9-11.1 [facility] Comment on above: Performed By: #### 1 9884138, 9544359, 78126605, 3244649, 3374901, 9028069, 611245333, 4822393, 2441303 ####[facility] [address] [place] [address] Chloride [Moles/Vol] 104 mmol/L Normal 101-111 [facility] Comment on above: Performed By: #### 1 7153047, 1332894, 09045168, 7078153, 9200528, 9050620, 344076772, 5080194, 5292050 ####[facility] [address] [place] [address] CO2 [Moles/Vol] 24 mmol/L Normal 21-31 [facility] Comment on above: Performed By: #### 1 2417558, 7949345, 00390702, 5731074, 9551733, 4118098, 596856327, 6815303, 2024095 ####[facility] [address] [place] [address] Creatinine [Mass/Vol] 0.9 mg/dL Normal 0.5-1.3 [facility] Comment on above: Performed By: #### 1 6708965, 3214551, 14778772, 2962991, 8502910, 7135135, 309101589, 7858199, 0614739 ####[facility] [address] [place] [address] Glucose [Mass/Vol] 161 mg/dL Normal 55-199 [facility] Comment on above: Result Comment: If t his glucose result represents a fasting glucose, interpretation should refer to the following reference range: 55-99 mg/dL Performed By: #### 1 4227568, 5280904, 96278776, 5001717, 7223746, 3130738, 745812840, 4035534, 5910742 ####[facility] [address] [place] [address] Potassium [Moles/Vol] 4.3 mmol/L Normal 3.5-5.3 [facility] Comment on above: Performed By: #### 1 5074861, 0168722, 66608085, 8026604, 4940142, 4650507, 388048751, 6315508, 1183207 ####[facility] [address] [place] [address] Sodium [Moles/Vol] 134 mmol/L Low 135-145 [facility] Comment on above: Performed By: #### 1 8056461, 8509231, 44489488, 0490268, 3405165, 2172673, 359908184, 2532748, 6627321 ####[facility] [address] [place] [address] Urea nitrogen [Mass/Vol] 19 mg/dL Normal 5-21 [facility] Comment on above: Performed By: #### 1 3384762, 8830864, 82647131, 1893583, 7993839, 4890323, 433578577, 9457992, 4268829 ####[facility] [address] [place] [address] Urea nitrogen/Creatinine [Mass ratio] 21 No Units High 10-20 [facility] Comment on above: Performed By: #### 1 1710346, 7465924, 31483244, 7577427, 0616492, 0602916, 775294332, 0740379, 9928189 ####[facility] [address] [place] [address] CBC w/ Auto Diffon 3 Erythrocyte distribution width (RBC) [Ratio] 16.2 % High 10.9-14.2 [facility] Comment on above: Performed By: #### 1 5957994, 7760414, 26558915, 9995545, 0264492, 3474767, 053799427, 4541099, 4614616 ####[facility] [address] [place] [address] Hematocrit (Bld) [Volume fraction] 24.8 % Low 37.7-49.0 [facility] Comment on above: Performed By: #### 1 4392635, 8709701, 25953294, 4990596, 0008338, 3658275, 107203250, 7644642, 7462355 ####[facility] [address] [place] [address] Hemoglobin (Bld) [Mass/Vol] 7.8 g/dL Low 13.5-17.5 [facility] Comment on above: Performed By: #### 1 5457889, 5490566, 20468429, 3113636, 7706638, 5598254, 137076727, 7422187, 2279550 ####[facility] [address] [place] [address] MCH (RBC) [Entitic mass] 23.5 pg Low 27.0-34.0 [facility] Comment on above: Performed By: #### 1 7362905, 3125396, 85262492, 2196360, 0661529, 6311683, 459091175, 5035035, 2795562 ####[facility] [address] [place] [address] MCHC (RBC) [Mass/Vol] 31.3 g/dL Low 31.4-36.0 [facility] Comment on above: Performed By: #### 1 7624468, 0753419, 52637915, 8655388, 7817458, 1069871, 158719521, 6604172, 7110220 ####[address] [place] [address] MCV (RBC) [Entitic vol] 74.9 fL Low 80.0-100.0 [facility] Comment on above: Performed By: #### 1 8254291, 2439671, 16880276, 5134235, 3477905, 9429199, 892578636, 0183638, 9120038 ####[facility] [address] [place] [address] Platelet mean volume (Bld) [Entitic vol] 8.1 fL Normal 6.4-10.8 [facility] Comment on above: Performed By: #### 1 0411437, 3066009, 06173428, 8779102, 5498847, 0905552, 052764549, 0309103, 0713893 ####[facility] [address] [place] [address] Platelets (Bld) [#/Vol] 286.0 E9/L Normal 150.0-500.0 [facility] Comment on above: Performed By: #### 1 6371467, 4382379, 90990412, 3854899, 8360873, 8617751, 762037598, 9473731, 7670190 ####[facility] [address] [place] [address] RBC (Bld) [#/Vol] 3.3 E12/L Low 4.3-5.9 [facility] Comment on above: Performed By: #### 1 6362523, 3369273, 16399963, 5948546, 0063006, 6550337, 628297709, 2257164, 5617017 ####[facility] [address] [place] [address] WBC corrected for nucl RBC Auto (Bld) [#/Vol] 6.8 E9/L Normal 4.0-11.0 [facility] Comment on above: Performed By: #### 1 0286897, 3959072, 81301632, 6113568, 7777969, 8874439, 807155087, 2095354, 6462043 ####[facility] [address] [place] [address] CHEMISTRYOrdered By: SYSTEM SYSTEM on 08-15-2022 Vancomycin trough [Moles/Vol] 18 microgram/mL Normal 10 - 20 mcg/mL [facility] Remisol 25-hydroxyvitamin D3 [Mass/Vol] 12.8 ng/mL Low 30.0 - 100.0 ng/mL [facility] Remisol Magnesium [Mass/Vol] 2.1 mg/dL Normal 1.3 - 2 .4 mg/dL [facility] Remisol Phosphate [Mass/Vol] 3.1 mg/dL Normal 1.9 - 4 .6 mg/dL [facility] Remisol CHEMISTRYOrdered By: Isaac Herring on 08-15-2022 Vancomycin peak [Moles/Vol] 40 microgram/mL Normal 20 - 40 mcg/mL [facility] Remisol CTA Abd Aorto-bilat/ iliofem oral runoffon 08-15-2022 CTA Abd Aorto-bilat/ iliofemoral runoff Normal [facility] Capillary Glucose POCon Glucose [Mass/Vol] 191 mg/dL High 55-99 [facility] Comment on above: Result Comment: Mary COLLAZO Performed By: #### 2 34572980 ####[facility] [address] [place] [address] Glucose [Mass/Vol] 168 mg/dL High 55-99 [facility] Comment on above: Result Comment: Mary COLLAZO Performed By: #### 2 97042447 ####[facility] [address] [place] [address] Glucose [Mass/Vol] 164 mg/dL High 55-99 [facility] Comment on above: Result Comment: Mary COLLAZO Performed By: #### 2 38834252 ####[facility] [address] [place] [address] Glucose [Mass/Vol] 135 mg/dL High 55-99 [facility] Comment on above: Result Comment: Mary COLLAZO Performed By: #### 2 17145393 ####[facility] [address] [place] [address] Coding Queryon 08-15-2022 Coding Query Normal [facility] Coding Query Normal [facility] Coding Summary.on 08-15-2022 Coding Summary. Normal [facility] Consent for Anesthesiaon Consent for Anesthesia [id number]#1.00CD:127 [facility] Consultation Noteon 08-16-19 Consultation Note Normal [facility] Comment on above: Result Comment: Elec tronically Signed By: Ronaldo Arcos M.D\Date and Time Signed: 08/15/22 09:42 EDT Hemoglobinon 08-15-2022 Hemoglobin (Bld) [Mass/Vol] 8.3 g/dL Low 13.5-17.5 [facility] Comment on above: Performed By: #### 2 778704 ####[facility] [address] [place] [address] Interdisciplinary Note - Virgil e Manageron 08-15-2022 Interdisciplinary Note - Pharmacy Analyst [facility] Comment on above: Result Comment: Elec tronically Signed By: Franci Peace\Date and Time Signed: 08/15/22 13:07 EDT Interdisciplinary Note - Juan n 08-15-2022 Interdisciplinary Note - OT [facility] Interdisciplinary Note - PTo n 08-15-2022 Interdisciplinary Note - PT [facility] IntraOperative Documentson 0 08-15-2022 IntraOperative Documents [id number]#1.00CD:127 Normal [facility] Magnesiumon 08-15-2022 Magnesium [Mass/Vol] 2.1 mg/dL Normal 1.3-2.4 [facility] Comment on above: Performed By: #### 1 2247590, 8716827, 35039803, 7448141, 5550354, 9917196, 141486327, 0321678, 7843645 ####[facility] [address] [place] [address] Main OR Intraoperative Recor don 08-15-2022 Main OR Intraoperative Record Normal [facility] Monitor Recordon 08-15-2022 Monitor Record [id number]#1.00CD:127 Normal [facility] Monitor Record [id number]#1.00CD:127 Normal [facility] Monitor Record [id number]#1.00CD:127 Normal [facility] Monitor Record [id number]#1.00CD:127 Normal [facility] Morphon 08-15-2022 Hypochromia Auto Ql (Bld) Present Normal [facility] Comment on above: Order Comment: Order Added by Discern Expert. Performed By: #### 1 8531796, 9634242, 62436287, 5147457, 5724376, 3671447, 103611437, 9891441, 7944210 ####[address] [place] [address] Microcytes Ql (Bld) Present Normal [facility] Comment on above: Order Comment: Order Added by Discern Expert. Performed By: #### 1 2460561, 9417968, 85530455, 5053288, 1933546, 1846170, 631771880, 9619987, 3332215 ####[address] [place] [address] Morphology Errol (Bld) [Interp] See Morphology Normal [facility] Comment on above: Order Comment: Order Added by Discern Expert. Performed By: #### 1 4882968, 2693433, 95040367, 0474821, 9085636, 4117084, 633529710, 6289357, 8836601 ####[address] [place] [address] Phosphoruson 08-15-2022 Phosphate [Mass/Vol] 3.1 mg/dL Normal 1.9-4.6 [facility] Comment on above: Performed By: #### 1 1505370, 4900004, 94846286, 1067744, 9622919, 8210073, 377300007, 6018764, 7842373 ####[facility] [address] [place] [address] Progress Note - Pharmacyon 0 08-15-2022 Progress Note - Pharmacy Normal [facility] Progress Note - Woundon 04- Progress Note - Wound [id number]#2.00CD:127 Normal [facility] Progress Note-Physicianon Progress Note-Physician Normal [facility] Comment on above: Result Comment: Elec tronically Signed By: Geovanna GILBERT, Chaitanya Munoz\.br\Date and Time Signed: 08/15/22 13:40 EDT Vanco Peakon 08-15-2022 VANCOMYCIN 40 microgram/mL Normal 20-40 [facility] Comment on above: Order Comment: pleas e draw one hour after infusionPer MIKE huertas supposed to start @0300 and takes over 90 mins to infuse. Will call lab to let us know when started to ensure accurate draw time...[facility] 08/15/2022 02:05:00 EDTRN called aleksandar started @0334 and will infuse for 90 mins. Draw peak @0604...[facility] 08/15/2022 03:52:05 EDT Performed By: #### 1 7290768, 3476829, 10911178, 5953321, 4731032, 9916399, 534425422, 0959278, 8857284 ####[facility] [address] [place] [address] Vanco Troughon 08-15-2022 VANCOMYCIN 18 microgram/mL Normal 10-20 [facility] Comment on above: Order Comment: pleas e draw one hour prior to infusion Performed By: #### 2 540613 ####[facility] [address] [place] [address] Vitamin D 25 Hydroxyon 08-15 25-hydroxyvitamin D3 [Mass/Vol] 12.8 ng/mL Low 30.0-100.0 [facility] Comment on above: Result Comment: Vit ang D deficiency has been defined as a level of serum 25-OH vitamin D less than 20 ng/mL (1,2) by the [employer] and an Endocrine Society practice guideline. The Endocrine Society further defined vitamin D insufficiency as a level between 21 and 29 ng/mL (2). 1. IOM ([employer]). 2010. Dietary reference intakes for calcium and D. [place]: The National Academies Press. 2. Amber MF, Kathi NC, Tanner GOMEZ, et al. Evaluation, treatment, and prevention of vitamin D deficiency: an Endocrine Society clinical practice guideline. JCEM. 2010; 96 (7):1911-30. Performed By: #### 1 6844680, 0245136, 71386944, 6195458, 3734267, 5487737, 581789061, 8723678, 5877123 ####[facility] [address] [place] [address] XR Foot 3+ Views Righton XR Foot 3+ Views Right Normal [facility] eGFRon 08-15-2022 GFR/1.73 sq M.predicted among blacks MDRD (S/P/Bld) [Vol rate/Area] mL/min/{1.73_m2} Normal >=59 [facility] Comment on above: Order Comment: Order added by Discern Expert. Result Comment: eGFR is race adjusted. AA=. Performed By: #### 1 3844051, 3775137, 44197111, 8153139, 6369934, 0374368, 248958128, 6499504, 0089204 ####[facility] [address] [place] [address] GFR/1.73 sq M.predicted among non-blacks MDRD (S/P/Bld) [Vol rate/Area] mL/min/{1.73_m2} Normal >=59 [facility] Comment on above: Order Comment: Order added by Discern Expert. Result Comment: Choral Director claus kidney disease could be indicated at eGFR's of less than 60 mL/min/1.73m2. Kidney failure is indicated at less than 15 mL/min/1.73m2. Performed By: #### 1 6279723, 8888885, 20031195, 1810624, 2286706, 6048288, 861122873, 9209206, 9445590 ####[facility] [address] [place] [address] CBC w/Indiceson 08-14-2022 Erythrocyte distribution width (RBC) [Ratio] 16.1 % High 10.9-14.2 [facility] Comment on above: Order Comment: pt is a hard stick, unable to get labs. Will have day shift try @ 0530. [id number] 08/14/2022 05:21:38 EDT Performed By: #### 2 985742, 0967979, 00456162 ####[facility] [address] [place] [address] Hematocrit (Bld) [Volume fraction] 28.7 % Low 37.7-49.0 [facility] Comment on above: Order Comment: pt is a hard stick, unable to get labs. Will have day shift try @ 0530. [id number] 08/14/2022 05:21:38 EDT Performed By: #### 2 728215, 4241001, 59047495 ####[facility] [address] [place] [address] Hemoglobin (Bld) [Mass/Vol] 8.9 g/dL Low 13.5-17.5 [facility] Comment on above: Order Comment: pt is a hard stick, unable to get labs. Will have day shift try @ 0530. [id number] 08/14/2022 05:21:38 EDT Performed By: #### 2 060902, 6096235, 37682154 ####[facility] [address] [place] [address] MCH (RBC) [Entitic mass] 23.2 pg Low 27.0-34.0 [facility] Comment on above: Order Comment: pt is a hard stick, unable to get labs. Will have day shift try @ 0530. [id number] 08/14/2022 05:21:38 EDT Performed By: #### 2 083309, 5386812, 16248047 ####[facility] [address] [place] [address] MCHC (RBC) [Mass/Vol] 31.2 g/dL Low 31.4-36.0 [facility] Comment on above: Order Comment: pt is a hard stick, unable to get labs. Will have day shift try @ 0530. [id number] 08/14/2022 05:21:38 EDT Performed By: #### 2 083019, 0517590, 20494603 ####[facility] [address] [place] [address] MCV (RBC) [Entitic vol] 74.4 fL Low 80.0-100.0 [facility] Comment on above: Order Comment: pt is a hard stick, unable to get labs. Will have day shift try @ 0530. [id number] 08/14/2022 05:21:38 EDT Performed By: #### 2 908687, 5055039, 55831404 ####[facility] [address] [place] [address] Platelet mean volume (Bld) [Entitic vol] 8.6 fL Normal 6.4-10.8 [facility] Comment on above: Order Comment: pt is a hard stick, unable to get labs. Will have day shift try @ 0530. [id number] 08/14/2022 05:21:38 EDT Performed By: #### 2 672620, 7856845, 23005080 ####[facility] [address] [place] [address] Platelets (Bld) [#/Vol] 268.0 E9/L Normal 150.0-500.0 [facility] Comment on above: Order Comment: pt is a hard stick, unable to get labs. Will have day shift try @ 0530. [id number] 08/14/2022 05:21:38 EDT Performed By: #### 2 004045, 9661842, 57954854 ####[facility] [address] [place] [address] RBC (Bld) [#/Vol] 3.8 E12/L Low 4.3-5.9 [facility] Comment on above: Order Comment: pt is a hard stick, unable to get labs. Will have day shift try @ 0530. [id number] 08/14/2022 05:21:38 EDT Performed By: #### 2 040560, 3546190, 34477292 ####[facility] [address] [place] [address] WBC corrected for nucl RBC Auto (Bld) [#/Vol] 6.6 E9/L Normal 4.0-11.0 [facility] Comment on above: Order Comment: pt is a hard stick, unable to get labs. Will have day shift try @ 0530. [id number] 08/14/2022 05:21:38 EDT Performed By: #### 2 393865, 4847431, 43622243 ####[facility] [address] [place] [address] CEFEPIME:SUSC:PT:ISOLATE:ORD QN:MICOrdered By: Margret Ambriz on 08-14-2022 Cefepime ERYN [Susc] Escherichia coli ESB L isolated from broth media only. Result called to Dr. Harris by [facility] & CLINIC and results read back for confirmation on 08/18/2022 09:28:42 [facility] Capillary Glucose POCon 04-0 Glucose [Mass/Vol] 188 mg/dL High 55-99 [facility] Comment on above: Result Comment: Katty todd Meter Performed By: #### 2 [id number] ####[facility] [address] [place] [address] Glucose [Mass/Vol] 138 mg/dL High 55-99 [facility] Comment on above: Performed By: #### 2 [id number] ####[facility] [address] [place] [address] Cefepime ERYN [Susc]Ordered B y: Margret Ambriz on 08-14-2022 Escherichia coli ESBL Escherichia coli ESBL [facility] GS 1+ White Blood Cells Occasional Gram Positive Cocci [facility] Consent for Procedure/Surger yon 08-14-2022 Consent for Procedure/Surgery [id number]#1.00CD:127 [facility] Consent for Procedure/Surgery [id number]#1.00CD:127 [facility] Comment on above: Other Comment: NOT I T Consultation Noteon 08-15-19 Consultation Note [facility] Comment on above: Result Comment: Elec tronically Signed By: Ramiro Epperson DPM\.br\Date and Time Signed: 08/14/22 11:21 EDT Insurance Correspondence Off iceon 08-14-2022 Insurance Correspondence Office [id number]#1.00CD:127 [facility] Interdisciplinary Note - Virgil e Manageron 08-14-2022 Interdisciplinary Note - Pharmacy Analyst [facility] Comment on above: Result Comment: Elec tronically Signed By: Valentina Peoples\.br\Date and Time Signed: 08/14/22 09:42 EDT Main OR PACU I Recordon Main OR PACU I Record Normal [facility] Message from Medicareon Message from Medicare [id number]#1.00CD:127 [facility] Message from Medicare [id number]#1.00CD:127 [facility] Monitor Recordon 08-14-2022 Monitor Record [id number]#1.00CD:127 [facility] Monitor Record [id number]#1.00CD:127 [facility] Monitor Record [id number]#1.00CD:127 [facility] Monitor Record [id number]#1.00CD:127 [facility] Morphon 08-14-2022 Hypochromia Auto Ql (Bld) Present Normal [facility] Comment on above: Order Comment: Order Added by Discern Expert. Performed By: #### 2 040159, 8450948, 37607838 ####[facility] [address] [facility] [address] Microcytes Ql (Bld) Present Normal [facility] Comment on above: Order Comment: Order Added by Discern Expert. Performed By: #### 2 322709, 7174583, 27857640 ####[facility] [address] [facility] [address] Morphology Errol (Bld) [Interp] See Morphology Normal [facility] Comment on above: Order Comment: Order Added by Discern Expert. Performed By: #### 2 376905, 5458648, 88978904 ####[facility] [address] [facility] [address] Path. Reviewon 08-14-2022 Path Review Anemia with mild polychromasia. Invalid Interpretation Code [facility] Comment on above: Order Comment: Order Added by Discern Expert. Performed By: #### 1 1342468, 3542129, 03138728, 51152695, 6862358, 0734477 ####[facility] [address] [facility] [address] Progress Note-Physicianon Progress Note-Physician Normal [facility] Comment on above: Result Comment: Elec tronically Signed By: Geovanna GILBERT, Chaitanya Munoz\.br\Date and Time Signed: 08/14/22 18:26 EDT Progress Note-Physician Normal [facility] Comment on above: Result Comment: Elec tronically Signed By: Alex Goldstein MD\.br\Date and Time Signed: 08/14/22 13:14 EDT Progress Note-Physician Normal [facility] Comment on above: Result Comment: Elec tronically Signed By: Ramiro Epperson DPM\.br\Date and Time Signed: 08/14/22 12:53 EDT Progress Note-Physician Normal [facility] Comment on above: Result Comment: Elec tronically Signed By: Angelita GILBERT, Alex Phillpis\Date and Time Signed: 08/14/22 10:57 EDT Sodiumon 08-14-2022 Sodium [Moles/Vol] 136 mmol/L Normal 135-145 [facility] Comment on above: Performed By: #### 2 464594, 8292372, 27920106 ####[facility] [address] [place] [address] ABO/Rhon 08-13-2022 ABO/Rh Positive Invalid Interpretation Code [facility] Comment on above: Performed By: #### 1 5848834, 50196191, 0183427, 24335183 ####[address] [address] ABO/Rh History Checkon 08-13 ABO/Rh History Check Type verified by second s Normal [facility] Comment on above: Performed By: #### 1 8563736, 68658013, 1656411, 42449333 ####[facility] [address] [place] [address], [place] [address] ABO/Rh Retypeon 08-13-2022 ABO/Rh Retype Interp Positive Invalid Interpretation Code [facility] Comment on above: Performed By: #### 1 7879947 ####[facility] [address] [facility] [address] ABSCon 08-13-2022 ABSC Gel Interp Negative Normal [facility] Comment on above: Performed By: #### 1 9728645, 31446750, 9809494, 86823618 ####[facility] [address] [facility] [address] Auto Diffon 08-13-2022 Basophils/100 WBC (Bld) 0.5 % Normal 0.0-2.0 [facility] Comment on above: Order Comment: Order Added by Discern Expert. Performed By: #### 1 0557153, 0178447, 72842305, 27303990, 4601863, 5062013 ####[address] [place] [address] Basophils/Leukocytes Auto (Bld) [Pure # fraction] 0.0 E9/L Normal 0.0-0.2 [facility] Comment on above: Order Comment: Order Added by Discern Expert. Performed By: #### 1 8607453, 1288881, 75975890, 89197632, 5022745, 9275071 ####[address] [place] [address] Eosinophils/100 WBC (Bld) 1.3 % Normal 0.0-8.0 [facility] Comment on above: Order Comment: Order Added by Discern Expert. Performed By: #### 1 2502094, 8758051, 28862929, 89367212, 9925725, 5931172 ####[address] [place] [address] Eosinophils/Leukocyte s Auto (Bld) [Pure # fraction] 0.1 E9/L Normal 0.0-0.5 [facility] Comment on above: Order Comment: Order Added by Discern Expert. Performed By: #### 1 6276335, 4595064, 63156279, 37712734, 2638782, 3481530 ####[address] [address] Lymphocytes/100 WBC (Bld) 16.6 % Normal 14.0-50.0 [facility] Comment on above: Order Comment: Order Added by Discern Expert. Performed By: #### 1 8048116, 9635525, 30455463, 95239392, 0309525, 3930604 ####[address] [address] Lymphocytes/Leukocyte s Auto (Bld) [Pure # fraction] 1.4 E9/L Normal 1.0-4.0 [facility] Comment on above: Order Comment: Order Added by Discern Expert. Performed By: #### 1 6962745, 5525477, 68797156, 48224014, 6907192, 8672021 ####[address] [address] Monocytes/100 WBC (Bld) 13.5 % Normal 4.0-14.0 [facility] Comment on above: Order Comment: Order Added by Discern Expert. Performed By: #### 1 3879799, 9580309, 44000361, 76012962, 1318923, 3821663 ####[facility] [address] [place] [address] Monocytes/Leukocytes Auto (Bld) [Pure # fraction] 1.1 E9/L High 0.2-1.0 [facility] Comment on above: Order Comment: Order Added by Discern Expert. Performed By: #### 1 8560530, 5167853, 41474574, 77993952, 3705776, 4454101 ####[address] [place] [address] Neutrophils/100 WBC (Bld) 68.1 % Normal 36.0-75.0 [facility] Comment on above: Order Comment: Order Added by Discern Expert. Performed By: #### 1 3427622, 1797139, 68094931, 80594679, 2357772, 4151486 ####[facility] [address] [place] [address] Neutrophils/Leukocyte s Auto (Bld) [Pure # fraction] 5.7 E9/L Normal 2.0-7.5 [facility] Comment on above: Order Comment: Order Added by Discern Expert. Performed By: #### 1 2583053, 6707450, 29564177, 22161338, 2438225, 1624954 ####[address] [place] [address] BLOOD BANKOrdered By: Alecia Miranda on 08-13-2022 ABO/Rh Retype Interp Positive Invalid Interpretation Code [facility] BB Subsection ABO/Rh Interp Positive Invalid Interpretation Code [facility] BB Subsection ABSC Gel Interp Negative (08/13/22 1:25 PM) Normal [facility] BB Subsection BMPon 08-13-2022 Creatinine [Mass/Vol] 1.0 mg/dL Normal 0.5-1.3 [facility] Comment on above: Order Comment: pt in ultrasound Performed By: #### 1 0198906, 7138203, 33586699, 56045391, 6724963, 0075616 ####[facility] [address] [place] [place] [address] Urea nitrogen [Mass/Vol] 31 mg/dL High 5-21 [facility] Comment on above: Order Comment: pt in ultrasound Performed By: #### 1 7008057, 8787617, 26285184, 97962186, 7116090, 6875630 ####[facility] [address] [place] [address] Urea nitrogen/Creatinine [Mass ratio] 31 No Units High 10-20 [facility] Comment on above: Order Comment: pt in ultrasound Performed By: #### 1 2521321, 0717456, 08079840, 47607942, 4353144, 1911315 ####[facility] [address] [facility] [address] Anion gap [Moles/Vol] 11 mmol/L Normal 6-16 [facility] Comment on above: Order Comment: pt in ultrasound Performed By: #### 1 1003099, 9970848, 61122461, 54426529, 6645213, 4020636 ####[facility] [address] [facility] [address] Calcium [Mass/Vol] 8.5 mg/dL Low 8.9-11.1 [facility] Comment on above: Order Comment: pt in ultrasound Performed By: #### 1 1525674, 4148188, 71808509, 32946407, 0634573, 5592229 ####[facility] [address] [place] [place] [address] Chloride [Moles/Vol] 96 mmol/L Low 101-111 [facility] Comment on above: Order Comment: pt in ultrasound Performed By: #### 1 7942746, 5510830, 19778239, 82001204, 6796014, 4875085 ####[facility] [address] [place] [place] [address] CO2 [Moles/Vol] 27 mmol/L Normal 21-31 [facility] Comment on above: Order Comment: pt in ultrasound Performed By: #### 1 2977342, 1356889, 70626845, 30685552, 2629174, 8354349 ####[facility] [address] [place] [address] Glucose [Mass/Vol] 174 mg/dL Normal 55-199 [facility] Comment on above: Order Comment: pt in ultrasound Result Comment: If t his glucose result represents a fasting glucose, interpretation should refer to the following reference range: 55-99 mg/dL Performed By: #### 1 1470258, 6395033, 10016426, 18389051, 4961313, 8110150 ####[facility] [address] [place] [address] Potassium [Moles/Vol] 3.8 mmol/L Normal 3.5-5.3 [facility] Comment on above: Order Comment: pt in ultrasound Performed By: #### 1 2150912, 7551958, 69816378, 01971190, 9193736, 2500599 ####[facility] [address] [place] [address] Sodium [Moles/Vol] 130 mmol/L Low 135-145 [facility] Comment on above: Order Comment: pt in ultrasound Performed By: #### 1 0088178, 8179277, 22082922, 84911353, 6931184, 8166475 ####[facility] [address] [place] [address] Blood Bank ID#on 08-13-2022 BBID# [id number] Invalid Interpretation Code [facility] Comment on above: Performed By: #### 1 8428011, 14284032, 7615006, 26792635 ####[facility] [address] [place] [address] CBC w/ Auto Diffon 3 Erythrocyte distribution width (RBC) [Ratio] 15.8 % High 10.9-14.2 [facility] Comment on above: Performed By: #### 1 7402476, 8115169, 19164474, 11765133, 9165686, 1228705 ####[address] [place] [address] Hematocrit (Bld) [Volume fraction] 27.9 % Low 37.7-49.0 [facility] Comment on above: Performed By: #### 1 6684577, 5268000, 96252719, 11285791, 9498425, 6946366 ####[place] [address] Hemoglobin (Bld) [Mass/Vol] 8.7 g/dL Low 13.5-17.5 [facility] Comment on above: Performed By: #### 1 4294562, 4956160, 57516926, 31083259, 5905426, 3782031 ####[place] [address] MCH (RBC) [Entitic mass] 23.3 pg Low 27.0-34.0 [facility] Comment on above: Performed By: #### 1 8816367, 5557684, 29210140, 12292681, 2298259, 7096112 ####[address] [address] MCHC (RBC) [Mass/Vol] 31.3 g/dL Low 31.4-36.0 [facility] Comment on above: Performed By: #### 1 1388980, 8345601, 56311937, 11170470, 1262537, 7191966 ####[place] [address] MCV (RBC) [Entitic vol] 74.4 fL Low 80.0-100.0 [facility] Comment on above: Performed By: #### 1 8435632, 5056922, 49934894, 65805614, 3559163, 7739743 ####[address] [address] Platelet mean volume (Bld) [Entitic vol] 8.1 fL Normal 6.4-10.8 [facility] Comment on above: Performed By: #### 1 3827086, 4612925, 57869602, 55470660, 9145803, 4229148 ####[facility] [address] [place] [address] Platelets (Bld) [#/Vol] 266.0 E9/L Normal 150.0-500.0 [facility] Comment on above: Performed By: #### 1 4100292, 6261795, 79687714, 31148483, 6687442, 4114886 ####[facility] [address] [place] [address] RBC (Bld) [#/Vol] 3.8 E12/L Low 4.3-5.9 [facility] Comment on above: Performed By: #### 1 0783444, 2311411, 70773862, 50581840, 9247026, 3963106 ####[facility] [address] [place] [address] WBC corrected for nucl RBC Auto (Bld) [#/Vol] 8.3 E9/L Normal 4.0-11.0 [facility] Comment on above: Performed By: #### 1 2945320, 6760231, 73723659, 96227094, 0363122, 4082833 ####[facility] [address] [place], [place] [address] CHEMISTRYOrdered By: SYSTEM SYSTEM on 08-13-2022 Lactate [Mass/Vol] 0.9 mmol/L Normal 0.5 - 2.2 mmol/L FT Remisol Lactate [Mass/Vol] 1.0 mmol/L Normal 0.5 - 2.2 mmol/L [facility] Remisol Troponin I.cardiac [Mass/Vol] 2.50 pg/mL Low 15.90 - 38.40 pg/mL [facility] Remisol COAGULATIONOrdered By: Pascale Portillo on 08-13-2022 aPTT Coag (PPP) [Time] 25.0 s Low 25.1 - 36.5 second(s) [facility] Auto Coag INR Coag (PPP) [Relative time] 1.1 {INR} Invalid Interpretation Code [facility] Auto Coag PT Coag (PPP) [Time] 12.2 s Normal 9.4 - 1 2.5 second(s) [facility] Auto Coag Capillary Glucose POCon Glucose [Mass/Vol] 233 mg/dL High 55-99 [facility] Comment on above: Result Comment: Mary flores RN/MD Performed By: #### 2 [id number] ####[facility] [address] [place] [address] Consent for Procedure/Surger yon 08-13-2022 Consent for Procedure/Surgery [id number]#1.00CD:127 Normal [facility] Consent for Treatmenton Consent for Treatment [id number]#1.00CD:127 Normal [facility] Consent for Treatment [id number]#1.00CD:127 Normal [facility] ED Clinical Summaryon 2022 ED Clinical Summary Normal [facility] ED Note-Nursingon 08-13-2022 ED Note-Nursing No IV antibiotics gi elton at this time due to IV infiltration at 1230. Multiple attempts by multiple RNs made to gain new IV access with no success. Dr. Kaiser made aware. Normal [facility] ED Note-Nursing [facility] ED Note-Nursing Pt in MRI at this time. Normal [facility] ED Note-Physicianon 08-14-19 ED Note-Physician Normal [facility] Comment on above: Result Comment: Elec tronically Signed By: Jabier Martin PA-C.br\Date and Time Signed: 08/13/22 17:04 EDT\.br\Electronically Co-Signed By: Derrick Benson DO.br\Date and Time Co-Signed: 08/13/22 17:11 EDT ED Patient Education Noteon 08-13-2022 ED Patient Education Note Normal [facility] ED Patient Summaryon 023 ED Patient Summary Normal [facility] GetWell Education Videoon GetWell Education Video Patient Avoiding Infections in the Hospital Yes Normal [facility] HEMATOLOGYOrdered By: Terrence Gunderson on 08-13-2022 Path Review Anemia with mild polychromasia.D64.9CPT 37499 Invalid Interpretation Code [facility] HemeIsh Lactic Acidon 08-13-2022 Lactate [Mass/Vol] 0.9 mmol/L Normal 0.5-2.2 [facility] Comment on above: Performed By: #### 2 564671 ####[facility] [address] [place] [address] Lactate [Mass/Vol] 1.0 mmol/L Normal 0.5-2.2 [facility] Comment on above: Order Comment: pt in ultrasound Performed By: #### 1 3370607, 4201306, 7442215 ####[facility] [address] [place] [address] MRI Foot w/o Contrast Righto n 08-13-2022 MRI Foot w/o Contrast Right Normal [facility] Monitor Recordon 08-13-2022 Monitor Record [id number]#1.00CD:127 Normal [facility] Morphon 08-13-2022 Hypochromia Auto Ql (Bld) Present Normal [facility] Comment on above: Order Comment: Order Added by Discern Expert. Performed By: #### 1 7581041, 3292263, 29713310, 79875036, 4593925, 0292282 ####[facility] [address] [place] [address] Microcytes Ql (Bld) Present Normal [facility] Comment on above: Order Comment: Order Added by Discern Expert. Performed By: #### 1 5019239, 5833673, 09612091, 30715929, 0813780, 3199590 ####[facility] [address] [place] [address] Morphology Errol (Bld) [Interp] See Morphology Normal [facility] Comment on above: Order Comment: Order Added by Discern Expert. Performed By: #### 1 7456956, 4532975, 30586714, 31138914, 7489431, 4066132 ####[facility] [address] [place] [address] Multi-Wound Charton 08-14-19 Multi-Wound Chart [id number]#1.00CD:127 Normal [facility] No Panel InformationOrdered By: ANGPROCESSSERVER MICROBIOLOGY on 08-13-2022 Blood Culture Charcoal No growth at 5 days. Final to follow at 7 days. [facility] Blood Culture Charcoal No growth at 5 days. Final to follow at 7 days. [facility] Nursing Assessment - Woundon 08-13-2022 Nursing Assessment - Wound [id number]#1.00CD:127 Normal [facility] Nursing Note - Woundon 08-13 Nursing Note - Wound [id number]#1.00CD:127 Normal [facility] PT & PTTon 08-13-2022 aPTT Coag (PPP) [Time] 25.0 second(s) Low 25.1-36.5 [facility] Comment on above: Order Comment: pt in ultrasound Result Comment: Para meter 15 days - 4 weeks 1 - 5 months 6 - 11 months 1 - 5 years 6 - 10 years 11 - 17 years PTT Mean: 35.4 (27.6-45.6) Mean: 33.5 (24.8-40.7) Mean: 32.4 (25.1-40.7) Mean: 31.6 (24.0-39.2) Mean: 31.6 (26.9-38.7) Mean: 31.0 (24.6-38.4) Pediatric Reference ranges were obtained from a study by Jose Juan Olguin et al. prepared from 1437 samples obtained at 7 different centers using the same coagulation reagent and instrumentation as [facility]. Currently there are no coagulation studies available worldwide for children to 14 days, and no normal ranges. Heparin therapeutic range (represented by Anti-Factor Xa activity of 0.2 - 0.4 U/mL) corresponds to PTT of 56.6 - 109.0 sec. Performed By: #### 1 9931130, 4315040, 9407684 ####[facility] [address] [place] [address] INR Coag (PPP) [Relative time] 1.1 {INR} Invalid Interpretation Code [facility] Comment on above: Order Comment: pt in ultrasound Result Comment: INR results are specifically intended to assess patients stabilized on long-term Anticoagulation therapy suggested INR?s ?Less Intensive Anticoagulation? 2.0 ? 3.0Conventional Range 3.0 ? 4.5 Performed By: #### 1 1371197, 1430102, 8560624 ####[facility] [address] [place] [address] PT Coag (PPP) [Time] 12.2 second(s) Normal 9.4-12.5 [facility] Comment on above: Order Comment: pt in ultrasound Result Comment: 15 d ays - 4 weeks 1 - 5 months 6 -11 months 1 ? 5 years 6 ? 10 years 11 -17 years Mean: 11.2 (9.5 ? 12.6) Mean: 11.0 (9.7 ? 12.8) Mean: 11.0 (9.8 ? 13.0) Mean: 11.3 (9.9 ? 13.4) Mean: 11.7 (10.0 ? 14.6) Mean: 11.8 (10.0 - 14.1) Pediatric Reference ranges were obtained from a study by Jose Juan Olguin et al. prepared from 1437 samples obtained at 7 different centers using the same coagulation reagent and instrumentation as [facility]. Currently there are no coagulation studies available worldwide for children to 14 days, and no normal ranges. Performed By: #### 1 7439567, 5141161, 6776418 ####[facility] [address] [place] [address] Physician Orderon 08-13-2022 Physician Order [id number]#1.00CD:127 Normal [facility] Physician Order [id number]#1.00CD:127 Normal [facility] Procedure - Woundon 08-14-19 Procedure - Wound [id number]#1.00CD:127 Normal [facility] Progress Note - Pharmacyon 0 08-13-2022 Progress Note - Pharmacy Normal [facility] RAD - MRI Screening Formon 0 08-13-2022 RAD - MRI Screening Form [id number]#1.00CD:127 Normal [facility] Troponinon 08-13-2022 Troponin I.cardiac [Mass/Vol] 2.50 pg/mL Low 15.90-38.40 [facility] Comment on above: Order Comment: pt in ultrasound Result Comment: The 95% CI (Confidence Interval) PPV (Positive Predictive Value) for myocardial infarction in females is 38 pg/mL, in males 51 pg/mL. The results should be used in conjunction with clinical conditions of myocardial infarction.(Access High Sensitivity Troponin I Instructions For Use, [employer], December 2017) Performed By: #### 1 2606538, 1166351, 7093669 ####[facility] [address] [place] [address] UA With Cult Reflexon 2022 Bilirubin Ql (U) Negative Normal Negative [facility] Comment on above: Performed By: #### 1 3422442 ####[facility] [address] [place] [address] Clarity (U) CLEAR Normal Clear [facility] Comment on above: Performed By: #### 1 5874242 ####[facility] [address] [place] [address] Color (U) YELLOW Normal Yellow [facility] Comment on above: Performed By: #### 1 5933930 ####[facility] [address] [place] [address] Epithelial cells.squamous LM.HPF (Urine sed) [#/Area] 0-2 Normal 0-2 [facility] Comment on above: Performed By: #### 1 7108290 ####[facility] [address] [place] [address] Glucose Test strip (U) [Mass/Vol] 3+ Abnormal Negative [facility] Comment on above: Performed By: #### 1 4515340 ####[facility] [address] [place] [address] Hemoglobin Ql (U) TRACE Abnormal Negative [facility] Comment on above: Performed By: #### 1 9079195 ####[facility] [address] [place] [address] Ketones (U) [Mass/Vol] Negative Normal Negative [facility] Comment on above: Performed By: #### 1 8414916 ####[facility] [address] [place] [address] [place].plasma/Lithiu m.RBC (Bld) [Mass ratio] 0-3 Normal 0-3 [facility] Comment on above: Performed By: #### 1 6355059 ####[address] [address] Nitrite Ql (U) Negative Normal Negative [facility] Comment on above: Performed By: #### 1 1401609 ####[address] [address] pH (U) 6.5 [pH] Invalid Interpretation Code 5.0-9.0 [facility] Comment on above: Performed By: #### 1 [id number] ####[address] [address] Protein (U) [Mass/Vol] TRACE Abnormal Negative [facility] Comment on above: Performed By: #### 1 [id number] ####[address] [address] Specific gravity (U) [Rel density] 1.010 Invalid Interpretation Code 1.005-1.030 [facility] Comment on above: Performed By: #### 1 [id number] ####[address] [address] Type of Urine collection method Clean Catch Normal [facility] Comment on above: Performed By: #### 1 [id number] ####[address] [address] Urobilinogen Qn (U) 0.2 {Tu'U}/dL Normal 0.0-1.0 [facility] Comment on above: Performed By: #### 1 [id number] ####[facility] [address] [place] [address] WBC Auto Ql (U) Negative Normal Negative [facility] Comment on above: Performed By: #### 1 [id number] ####[facility] [address] [place] [address] WBC LM.HPF (Urine sed) [#/Area] 0-5 Normal 0-5 [facility] Comment on above: Performed By: #### 1 [id number] ####[facility] [address] [place] [address] URINALYSISOrdered By: Alecia Portillo on 08-13-2022 Bilirubin Ql (U) Negative (08/13/22 10:23 AM) Normal Negative [facility] UA Auto SS Clarity (U) Clear (08/13/22 10:23 AM) Normal Clear [facility] UA Auto SS Color (U) Yellow (08/13/22 10:23 AM) Normal Yellow [facility] UA Auto SS Epithelial cells.squamous LM.HPF (Urine sed) [#/Area] 0-2 /HPF Normal 0-2/HPF [facility] UA Auto SS Glucose Test strip (U) [Mass/Vol] 3+ *ABN* (08/13/22 10:23 AM) Invalid Interpretation Code Negative [facility] UA Auto SS Hemoglobin Ql (U) Trace *ABN* (08/13/22 10:23 AM) Invalid Interpretation Code Negative [facility] UA Auto SS Ketones (U) [Mass/Vol] Negative (08/13/22 10:23 AM) Normal Negative [facility] UA Auto SS [place].plasma/Lith[place] m.RBC (Bld) [Mass ratio] 0-3 /HPF Normal 0-3/HPF [facility] UA Auto SS Nitrite Ql (U) Negative (08/13/22 10:23 AM) Normal Negative [facility] UA Auto SS pH (U) 6.5 *NA* (08/13/22 10:23 AM) Invalid Interpretation Code 5.0 - 9.0 [facility] UA Auto SS Protein (U) [Mass/Vol] Trace *ABN* (08/13/22 10:23 AM) Invalid Interpretation Code Negative [facility] UA Auto SS Specific gravity (U) [Rel density] 1.010 *NA* (08/13/22 10:23 AM) Invalid Interpretation Code 1.005 - 1.030 [facility] [place] UA Auto SS UA Spec Desc Clean Catch (08/13/22 10:23 AM) Normal [facility] [place] UA Auto SS Urobilinogen Qn (U) 0.4422170 {Tu'U}/dL Normal 0.0 - 1.0 EU/dL [facility] [place] UA Auto SS WBC Auto Ql (U) Negative (08/13/22 10:23 AM) Normal Negative [facility] [place] UA Auto SS WBC LM.HPF (Urine sed) [#/Area] 0-5 /HPF Normal 0-5/HPF [facility] [place] UA Auto SS US LE Venous Duplex Righton 08-13-2022 US LE Venous Duplex Right Normal [facility] eGFRon 08-13-2022 GFR/1.73 sq M.predicted among blacks MDRD (S/P/Bld) [Vol rate/Area] mL/min/{1.73_m2} Normal >=59 [facility] Comment on above: Order Comment: Order added by Discern Expert. Result Comment: eGFR is race adjusted. AA=. Performed By: #### 1 [id number], 9054940, [id number], 17579512, 9166263, 6469630 ####[facility] [address] [place] [address] GFR/1.73 sq M.predicted among non-blacks MDRD (S/P/Bld) [Vol rate/Area] mL/min/{1.73_m2} Normal >=59 [facility] Comment on above: Order Comment: Order added by Discern Expert. Result Comment: Choral Director claus kidney disease could be indicated at eGFR's of less than 60 mL/min/1.73m2. Kidney failure is indicated at less than 15 mL/min/1.73m2. Performed By: #### 1 [id number], 9642352, [id number], 11806838, 2327270, 5248393 ####[facility] [address] [place] [address] Coding Summary.on 08-07-2022 Coding Summary. [facility] Coding Summary.on 08-06-2022 Coding Summary. [facility] Consent for Treatmenton 07-10 Consent for Treatment [id number]#1.00CD:127 [facility] Physician Orderon 08-06-2022 Physician Order [id number]#1.00CD:127 [facility] Procedure - Woundon 08-07-19 Procedure - Wound [id number]#1.00CD:127 [facility] Progress Note - Woundon 07-10 Progress Note - Wound [id number]#1.00CD:127 [facility] Creatinine [Mass/volume] in Serum or PlasmaOrdered By: Ramiro Epperson on 08-04-2022 Creatinine [Mass/Vol] 1.18 mg/dL 0.70-1.30 [facility] Laboratory - Chemistry and C hemistry - challengeOrdered By: Ramiro Epperson on 08-04-2022 GFR/1.73 sq M.predicted MDRD (S/P/Bld) [Vol rate/Area] mL/min/{1.73_m2} [facility] Multi-Wound Charton 08-05-19 Multi-Wound Chart [id number]#1.00CD:127 [facility] No Panel InformationOrdered By: Ramiro Epperson on 08-04-2022 Pharmacy Creatinine Clearance (Chem N/A [facility] Nursing Note - Woundon 08-04 Nursing Note - Wound [id number]#1.00CD:127 [facility] Serum or plasma trough vanco mycin levelOrdered By: Ramiro Epperson on 08-04-2022 Vancomycin trough [Mass/Vol] 12.4 ug/mL 10.0-20.0 [facility] Comment on above: Last dose: - Nursing Assessment - Woundon 08-01-2022 Nursing Assessment - Wound [id number]#1.00CD:127 [facility] Physician Orderon 08-01-2022 Physician Order [id number]#1.00CD:127 [facility] Procedure - Woundon 08-02-19 Procedure - Wound [id number]#1.00CD:127 [facility] Progress Note - Woundon 07-10 Progress Note - Wound [id number]#1.00CD:127 [facility] Consent for Treatmenton 07-10 Consent for Treatment [id number]#1.00CD:127 [facility] Creatinine [Mass/volume] in Serum or PlasmaOrdered By: Santos Epperson on 07-31-2022 Creatinine [Mass/Vol] 1.05 mg/dL 0.70-1.30 [facility] Laboratory - Chemistry and C hemistry - challengeOrdered By: Santos Epperson on 07-31-2022 GFR/1.73 sq M.predicted MDRD (S/P/Bld) [Vol rate/Area] mL/min/{1.73_m2} [facility] No Panel InformationOrdered By: Santos Epperson on 07-31-2022 Pharmacy Creatinine Clearance (Chem N/A [facility] Serum or plasma trough vanco mycin levelOrdered By: Santos Epperson on 07-31-2022 Vancomycin trough [Mass/Vol] 9.8 ug/mL 10.0-20.0 [facility] Comment on above: Last dose: - Coding Summary.on 07-29-2022 Coding Summary. [facility] Physician Orderon 07-29-2022 Physician Order [id number]#1.00CD:12 7 [facility] Consent for Procedure/Surger yon 07-28-2022 Consent for Procedure/Surgery [id number]#1.00CD:127 [facility] Creatinine [Mass/volume] in Serum or PlasmaOrdered By: Ramiro Epperson on 07-25-2022 Creatinine [Mass/Vol] 1.01 mg/dL 0.70-1.30 [facility] - Chemistry and C hemistry - challengeOrdered By: Ramiro Epperson on 07-25-2022 GFR/1.73 sq M.predicted MDRD (S/P/Bld) [Vol rate/Area] mL/min/{1.73_m2} [facility] Multi-Wound Charton 07-26-19 Multi-Wound Chart [id number]#1.00CD:127 [facility] No Panel InformationOrdered By: Ramiro Epperson on 07-25-2022 Pharmacy Creatinine Clearance (Chem N/A [facility] Nursing Assessment - Woundon 07-25-2022 Nursing Assessment - Wound [id number]#1.00CD:127 [facility] Nursing Note - Woundon 07-25 Nursing Note - Wound [id number]#1.00CD:127 [facility] Serum or plasma trough vanco mycin levelOrdered By: Ramiro Epperson on 07-25-2022 Vancomycin trough [Mass/Vol] 20.9 ug/mL 10.0-20.0 [facility] Comment on above: Last dose: - Consent for Treatmenton 07-09 Consent for Treatment [id number]#1.00CD:127 [facility] Physician Orderon 07-24-2022 Physician Order [id number]#1.00CD:127 [facility] Procedure - Woundon 07-25-19 Procedure - Wound [id number]#1.00CD:127 [facility] Progress Note - Woundon 07-09 Progress Note - Wound [id number]#1.00CD:127 [facility] Creatinine [Mass/volume] in Serum or PlasmaOrdered By: Ramiro Epperson on 07-23-2022 Creatinine [Mass/Vol] 1.10 mg/dL 0.70-1.30 [facility] Laboratory - Chemistry and C hemistry - challengeOrdered By: Ramiro Epperson on 07-23-2022 GFR/1.73 sq M.predicted MDRD (S/P/Bld) [Vol rate/Area] mL/min/{1.73_m2} [facility] No Panel InformationOrdered By: Ramiro Epperson on 07-23-2022 Pharmacy Creatinine Clearance (Chem N/A [facility] Physician Orderon 07-23-2022 Physician Order [id number]#1.00CD:127 [facility] Serum or plasma trough vanco mycin levelOrdered By: Ramiro Epperson on 07-23-2022 Vancomycin trough [Mass/Vol] 22.9 ug/mL 10.0-20.0 [facility] Comment on above: Last dose: - Coding Summary.on 07-21-2022 Coding Summary. Normal [facility] Coding Summary.on 07-18-2022 Coding Summary. [facility] Creatinine [Mass/volume] in Serum or PlasmaOrdered By: Ramiro Epperson on 07-18-2022 Creatinine [Mass/Vol] 1.07 mg/dL 0.70-1.30 [facility] Laboratory - Chemistry and C hemistry - challengeOrdered By: Ramiro Epperson on 07-18-2022 GFR/1.73 sq M.predicted MDRD (S/P/Bld) [Vol rate/Area] mL/min/{1.73_m2} [facility] No Panel InformationOrdered By: Ramiro Walteremily on 07-18-2022 Pharmacy Creatinine Clearance (Chem N/A [facility] Serum or plasma trough vanco mycin levelOrdered By: Ramiro Epperson on 07-18-2022 Vancomycin trough [Mass/Vol] 15.1 ug/mL 10.0-20.0 [facility] Comment on above: Last dose: - Nursing Assessment - Woundon 07-17-2022 Nursing Assessment - Wound [id number]#1.00CD:127 [facility] Nursing Note - Woundon 07-17 Nursing Note - Wound [id number]#1.00CD:127 [facility] Consent for Treatmenton Consent for Treatment [id number]#1.00CD:127 [facility] Multi-Wound Charton 07-17-19 Multi-Wound Chart [id number]#1.00CD:127 [facility] Physician Orderon 07-16-2022 Physician Order [id number]#1.00CD:127 [facility] Physician Order [id number]#1.00CD:127 [facility] Proceduralon 07-16-2022 Procedural [id number]#1.00CD:127 [facility] Procedure - Woundon 07-17-19 Procedure - Wound [id number]#1.00CD:127 [facility] Progress Note - Woundon Progress Note - Wound [id number]#1.00CD:127 [facility] Coding Summary.on 07-15-2022 Coding Summary. [facility] ED Note-Physicianon 07-16-19 ED Note-Physician Normal [facility] Comment on above: Result Comment: Elec tronically Signed By: Everardo Puckett PA-C\.br\Date and Time Signed: 07/14/22 16:22 EST\.br\Electronically Co-Signed By: Mark Vela DO\.br\Date and Time Co-Signed: 07/15/22 07:09 EST Consent for Treatmenton Consent for Treatment [id number]#1.00CD:127 Normal [facility] Discharge Instructionson Discharge Instructions [id number]#1.00CD:127 Normal [facility] ED Clinical Summaryon 2022 ED Clinical Summary Normal [facility] ED Patient Education Noteon 07-14-2022 ED Patient Education Note Normal [facility] ED Patient Summaryon 023 ED Patient Summary Normal [facility] Serum or plasma trough vanco mycin levelOrdered By: Ramiro Epperson on 07-14-2022 Vancomycin trough [Mass/Vol] 17.4 ug/mL 10.0-20.0 [facility] Comment on above: Last dose: - XR Foot 3+ Views Righton XR Foot 3+ Views Right Normal [facility] Creatinine and Glomerular fi ltration rate.predicted panel (S/P/Bld)Ordered By: Ronaldo Arcos on 07-11-2022 Creatinine [Mass/Vol] 0.94 mg/dL 0.64-1.27 [facility] Estimated glomerular filtrat ion rate (GFR) non- AmericanOrdered By: Ronaldo Arcos on 07-11-2022 GFR/1.73 sq M.predicted among non-blacks MDRD (S/P/Bld) [Vol rate/Area] > 60 mL/Min [facility] No Panel InformationOrdered By: Ronaldo Arcos on 07-11-2022 Estimated GFR () > 60 mL/Min [facility] Comment on above: GFR estimated refere nce range: According to KDOQI guidelines, <60 ml/min/1.73m2 is sufficient to diagnose a patient with chronic kidney disease. Pharmacy Creatinine Clearance (Chem N/A [facility] Serum or plasma trough vanco mycin levelOrdered By: Ronaldo Arcos on 07-11-2022 Vancomycin trough [Mass/Vol] 16.7 ug/mL 10.0-20.0 [facility] Comment on above: Last dose: - Consent for Procedure/Surger yon 07-09-2022 Consent for Procedure/Surgery [id number]#1.00CD:127 [facility] Consent for Treatmenton Consent for Treatment [id number]#1.00CD:127 [facility] Multi-Wound Charton 07-10-19 Multi-Wound Chart [id number]#2.00CD:127 [facility] Nursing Assessment - Woundon 07-09-2022 Nursing Assessment - Wound [id number]#1.00CD:127 [facility] Nursing Note - Woundon 07-09 Nursing Note - Wound [id number]#1.00CD:127 [facility] Physician Orderon 07-09-2022 Physician Order [id number]#1.00CD:127 [facility] Physician Order [id number]#1.00CD:127 [facility] Procedure - Woundon 07-10-19 Procedure - Wound [id number]#1.00CD:127 [facility] Progress Note - Woundon Progress Note - Wound [id number]#1.00CD:127 Normal [facility] Coding Summary.on 07-08-2022 Coding Summary. Normal [facility] Creatinine and Glomerular fi ltration rate.predicted panel (S/P/Bld)Ordered By: Santos Epperson on 07-07-2022 Creatinine [Mass/Vol] 0.92 mg/dL 0.64-1.27 [facility] Estimated glomerular filtrat ion rate (GFR) non- AmericanOrdered By: Santos Epperson on 07-07-2022 GFR/1.73 sq M.predicted among non-blacks MDRD (S/P/Bld) [Vol rate/Area] > 60 mL/Min [facility] No Panel InformationOrdered By: Santos Epperson on 07-07-2022 Estimated GFR () > 60 mL/Min [facility] Comment on above: GFR estimated refere nce range: According to KDOQI guidelines, <60 ml/min/1.73m2 is sufficient to diagnose a patient with chronic kidney disease. Pharmacy Creatinine Clearance (Chem N/A [facility] Serum or plasma trough vanco mycin levelOrdered By: Santos Epperson on 07-07-2022 Vancomycin trough [Mass/Vol] 16.7 ug/mL 10.0-20.0 [facility] Comment on above: Last dose: - Multi-Wound Charton 07-04-19 Multi-Wound Chart [id number]#2.00CD:127 Normal [facility] Nursing Assessment - Woundon 07-04-2022 Nursing Assessment - Wound [id number]#1.00CD:127 Normal [facility] Nursing Note - Woundon 07-04 Nursing Note - Wound [id number]#1.00CD:127 [facility] Serum or plasma trough vanco mycin levelOrdered By: Santos Epperson on 07-04-2022 Vancomycin trough [Mass/Vol] 17.8 ug/mL 10.0-20.0 [facility] Comment on above: Last dose: - Coding Summary.on 07-03-2022 Coding Summary. Normal [facility] Consent for Treatmenton 06-12 Consent for Treatment [id number]#1.00CD:127 [facility] IntraOperative Documentson 0 07-02-2022 IntraOperative Documents [id number]#1.00CD:127 [facility] Physician Orderon 07-02-2022 Physician Order [id number]#1.00CD:12 7 [facility] Physician Order [id number]#1.00CD:127 [facility] Progress Note - Woundon 06-12 Progress Note - Wound [id number]#1.00CD:127 [facility] Serum or plasma trough vanco mycin levelOrdered By: Ramiro Epperson on 07-02-2022 Vancomycin trough [Mass/Vol] 17.3 ug/mL 10.0-20.0 [facility] Comment on above: Last dose: - Auto Diffon 07-01-2022 Basophils/100 WBC (Bld) 0.9 % Normal 0.0-2.0 [facility] Comment on above: Order Comment: Order Added by Discern Expert. Performed By: #### 1 [id number], 72991713, 5108191, 6396037, 2223385 ####[facility] [address] [place] [address] Basophils/Leukocytes Auto (Bld) [Pure # fraction] 0.1 E9/L Normal 0.0-0.2 [facility] Comment on above: Order Comment: Order Added by Discern Expert. Performed By: #### 1 2997870, 10511348, 6938129, 5239998, 1111913 ####[facility] [address] [place] [address] Eosinophils/100 WBC (Bld) 2.4 % Normal 0.0-8.0 [facility] Comment on above: Order Comment: Order Added by Discern Expert. Performed By: #### 1 7858048, 87089513, 7810541, 8559747, 1208131 ####[address] [place] [address] Eosinophils/Leukocyte s Auto (Bld) [Pure # fraction] 0.2 E9/L Normal 0.0-0.5 [facility] Comment on above: Order Comment: Order Added by Discern Expert. Performed By: #### 1 9593235, 57740278, 1935393, 5402408, 3888162 ####[address] [place] [address] Lymphocytes/100 WBC (Bld) 24.1 % Normal 14.0-50.0 [facility] Comment on above: Order Comment: Order Added by Frankie Expert. Performed By: #### 1 8365996, 18126925, 2154007, 9470464, 7963473 ####[address] [address] Lymphocytes/Leukocyte s Auto (Bld) [Pure # fraction] 1.6 E9/L Normal 1.0-4.0 [facility] Comment on above: Order Comment: Order Added by Frankie Expert. Performed By: #### 1 8829834, 72163144, 7515203, 4098153, 0754008 ####[address] [address] Monocytes/100 WBC (Bld) 8.3 % Normal 4.0-14.0 [facility] Comment on above: Order Comment: Order Added by Frankie Expert. Performed By: #### 1 8787993, 85288919, 7536812, 3551535, 7010468 ####[address] [address] Monocytes/Leukocytes Auto (Bld) [Pure # fraction] 0.6 E9/L Normal 0.2-1.0 [facility] Comment on above: Order Comment: Order Added by Frankie Expert. Performed By: #### 1 5914486, 94473200, 0114499, 0767340, 4959922 ####[address] [place] [address] Neutrophils/100 WBC (Bld) 64.3 % Normal 36.0-75.0 [facility] Comment on above: Order Comment: Order Added by Discern Expert. Performed By: #### 1 0218069, 62924450, 2567173, 5306291, 4568024 ####[address] [place] [address] Neutrophils/Leukocyte s Auto (Bld) [Pure # fraction] 4.4 E9/L Normal 2.0-7.5 [facility] Comment on above: Order Comment: Order Added by Discern Expert. Performed By: #### 1 4966822, 88880807, 8724225, 0580092, 2454612 ####[address] [address] CBC w/ Auto Diffon 3 Erythrocyte distribution width (RBC) [Ratio] 16.3 % High 10.9-14.2 [facility] Comment on above: Performed By: #### 1 7444231, 35934039, 3649672, 5251912, 8510185 ####[address] [place] [address] Hematocrit (Bld) [Volume fraction] 30.4 % Low 37.7-49.0 [facility] Comment on above: Performed By: #### 1 0295701, 83554333, 0732984, 4981731, 6710556 ####[address] [place] [address] Hemoglobin (Bld) [Mass/Vol] 10.0 g/dL Low 13.5-17.5 [facility] Comment on above: Performed By: #### 1 1222491, 21456110, 9936788, 0054496, 1356041 ####[address] [place] [address] MCH (RBC) [Entitic mass] 25.7 pg Low 27.0-34.0 [facility] Comment on above: Performed By: #### 1 5335735, 64982209, 5318675, 1375123, 1604699 ####[facility] [address] [place] [address] MCHC (RBC) [Mass/Vol] 32.8 g/dL Normal 31.4-36.0 [facility] Comment on above: Performed By: #### 1 0374348, 53978993, 0551912, 9217352, 9692625 ####[address] [place] [address] MCV (RBC) [Entitic vol] 78.4 fL Low 80.0-100.0 [facility] Comment on above: Performed By: #### 1 9009701, 09942385, 9783738, 4671347, 9325287 ####[id number] Platelet mean volume (Bld) [Entitic vol] 8.4 fL Normal 6.4-10.8 [facility] Comment on above: Performed By: #### 1 2946958, 90235696, 5476448, 1469299, 8120564 ####[address] [address] Platelets (Bld) [#/Vol] 316.0 E9/L Normal 150.0-500.0 [facility] Comment on above: Performed By: #### 1 2631408, 71091533, 1643396, 2443093, 4129659 ####[facility] [address] [place] [address] RBC (Bld) [#/Vol] 3.9 E12/L Low 4.3-5.9 [facility] Comment on above: Performed By: #### 1 9323030, 89507907, 7645613, 4762889, 3404770 ####[address] [address] WBC corrected for nucl RBC Auto (Bld) [#/Vol] 6.8 E9/L Normal 4.0-11.0 [facility] Comment on above: Performed By: #### 1 0563537, 88625218, 3329653, 5385902, 7231735 ####[facility] [address] [place] [address] CHEMISTRYOrdered By: SYSTEM SYSTEM on 07-01-2022 Albumin [Mass/Vol] 3.1 g/dL Low 3.3 - 5.0 gm/dL [facility] Albumin/Globulin [Mass ratio] 0.7 {ratio} Low 1.1 - 2.2 [facility] ALP [Catalytic activity/Vol] 53 [iU]/d Normal 21 - 98 Int._Unit/L [facility] ALT No additional P-5'-P [Catalytic activity/Vol] 14 [iU]/d Normal 6 - 46 Int._Unit/L [facility] Anion gap [Moles/Vol] 14 mmol/L Normal 6 - 16 mEq/L [facility] AST [Catalytic activity/Vol] 16 [iU]/d Normal 5 - 43 Int._Unit/L [facility] Bilirubin [Mass/Vol] 0.6 mg/dL Normal 0.0 - 1 .1 mg/dL [facility] Calcium [Mass/Vol] 9.0 mg/dL Normal 8.9 - 11. 1 mg/dL [facility] Chloride [Moles/Vol] 94 mmol/L Low 101 - 1 11 mmol/L [facility] CO2 [Moles/Vol] 27 mmol/L Normal 21 - 31 mmol/L [facility] Creatinine [Mass/Vol] 1.0 mg/dL Normal 0.5 - 1.3 mg/dL [facility] GFR/1.73 sq M.predicted among blacks MDRD (S/P/Bld) [Vol rate/Area] mL/min/1.73 m2 Normal >=59mL/min/1 .73 m2 [facility] Chem S GFR/1.73 sq M.predicted among non-blacks MDRD (S/P/Bld) [Vol rate/Area] mL/min/1.73 m2 Normal >=59mL/min/1 .73 m2 [facility] S Globulin (S) [Mass/Vol] 4.3 g/dL High 1.4 - 4.0 gm/dL [facility] Glucose [Mass/Vol] 203 mg/dL High 55 - 199 mg/dL [facility] Potassium [Moles/Vol] 4.3 mmol/L Normal 3.5 - 5.3 mmol/L [facility] Protein [Mass/Vol] 7.4 g/dL Normal 6.0 - 7.8 gm/dL [facility] Sodium [Moles/Vol] 131 mmol/L Low 135 - 145 mmol/L [facility] Urea nitrogen [Mass/Vol] 30 mg/dL High 5 - 21 mg/dL [facility] Urea nitrogen/Creatinine [Mass ratio] 30 mg/mg High 10 - 20 [facility] Remisol CMPon 07-01-2022 Albumin [Mass/Vol] 3.1 g/dL Low 3.3-5.0 [facility] Comment on above: Performed By: #### 1 [id number], 16148013, 1066503, 3847519, 0516899 ####[facility] [address] [place] [address] Albumin/Globulin (S) [Mass conc ratio] 0.7 Low 1.1-2.2 [facility] Comment on above: Performed By: #### 1 [id number], 75730861, 9463189, 8358774, 0934043 ####[facility] [address] [place] [address] ALP [Catalytic activity/Vol] 53 Int._Unit/L Normal 21-98 [facility] Comment on above: Performed By: #### 1 8003088, 25439844, 8776275, 2764824, 4241813 ####[facility] [address] [place] [address] ALT No additional P-5'-P [Catalytic activity/Vol] 14 Int._Unit/L Normal 6-46 [facility] Comment on above: Performed By: #### 1 2560927, 68025082, 9050683, 3275612, 6788539 ####[facility] [address] [place] [address] AST [Catalytic activity/Vol] 16 Int._Unit/L Normal 5-43 [facility] Comment on above: Performed By: #### 1 4275268, 69992400, 1898092, 5492390, 8448171 ####[facility] [address] [place] [address] Bilirubin [Mass/Vol] 0.6 mg/dL Normal 0.0-1.1 [facility] Comment on above: Performed By: #### 1 7418084, 54432697, 6726258, 7046206, 7443773 ####[facility] [address] [place] [address] Creatinine [Mass/Vol] 1.0 mg/dL Normal 0.5-1.3 [facility] Comment on above: Performed By: #### 1 4346477, 48027307, 8194350, 8038246, 1126856 ####[facility] [address] [place] [address] Globulin (S) [Mass/Vol] 4.3 g/dL High 1.4-4.0 [facility] Comment on above: Performed By: #### 1 5876915, 57669042, 1531708, 9488042, 7442990 ####[facility] [address] [place] [address] Protein [Mass/Vol] 7.4 g/dL Normal 6.0-7.8 [facility] Comment on above: Performed By: #### 1 6562390, 22613088, 7497906, 9512029, 7382603 ####[facility] [address] [place] [address] Urea nitrogen [Mass/Vol] 30 mg/dL High 5-21 [facility] Comment on above: Performed By: #### 1 8158874, 77977271, 5376061, 5547940, 2581828 ####[facility] [address] [place] [address] Urea nitrogen/Creatinine [Mass ratio] 30 No Units High 10-20 [facility] Comment on above: Performed By: #### 1 2385390, 34887606, 1661972, 0895564, 9988367 ####[facility] [address] [place] [place] [address] Anion gap [Moles/Vol] 14 mmol/L Normal 6-16 [facility] Comment on above: Performed By: #### 1 9463271, 28955169, 3549072, 4711674, 1629430 ####[facility] [address] [facility] [place] [address] Calcium [Mass/Vol] 9.0 mg/dL Normal 8.9-11.1 [facility] Comment on above: Performed By: #### 1 6595816, 13247219, 9105354, 1628653, 4340810 ####[facility] [address] [place] [place] [address] Chloride [Moles/Vol] 94 mmol/L Low 101-111 [facility] Comment on above: Performed By: #### 1 5836898, 72617712, 8063628, 9298387, 0273112 ####[facility] [address] [place] [facility] [address] CO2 [Moles/Vol] 27 mmol/L Normal 21-31 [facility] Comment on above: Performed By: #### 1 5242072, 01091270, 2894656, 1830730, 5872189 ####[facility] [address] [place] [facility] [address] Glucose [Mass/Vol] 203 mg/dL High 55-199 [facility] Comment on above: Result Comment: If t his glucose result represents a fasting glucose, interpretation should refer to the following reference range: 55-99 mg/dL Performed By: #### 1 3639094, 81089900, 8877578, 5027475, 0768708 ####[facility] [address] [place] [address] Potassium [Moles/Vol] 4.3 mmol/L Normal 3.5-5.3 [facility] Comment on above: Performed By: #### 1 9269703, 60530165, 5300973, 7977351, 7592899 ####[facility] [address] [place] [address] Sodium [Moles/Vol] 131 mmol/L Low 135-145 [facility] Comment on above: Performed By: #### 1 2847519, 01856079, 0430408, 7672605, 3837917 ####[facility] [address] [place] [address] COAGULATIONOrdered By: Carly Bray on 07-01-2022 aPTT Coag (PPP) [Time] 42.7 s High 25.1 - 36.5 second(s) [facility] Auto Coag INR Coag (PPP) [Relative time] 1.1 {INR} Invalid Interpretation Code [facility] Auto Coag PT Coag (PPP) [Time] 12.3 s Normal 9.4 - 1 2.5 second(s) [facility] Auto Coag Consent for Treatmenton 06-12 Consent for Treatment [id number]#1.00CD:127 Normal [facility] Discharge Instructionson Discharge Instructions [id number]#1.00CD:127 Normal [facility] ED Clinical Summaryon 2022 ED Clinical Summary Normal [facility] ED Note-Physicianon 07-01-19 23 ED Note-Physician Normal [facility] Comment on above: Result Comment: Elec tronically Signed By: Mark Vela DO\.br\Date and Time Signed: 07/01/22 14:43 EST ED Patient Education Noteon 07-01-2022 ED Patient Education Note Normal [facility] ED Patient Summaryon 023 ED Patient Summary Normal [facility] HEMATOLOGYOrdered By: SYSTEM SYSTEM on 07-01-2022 Basophils/100 WBC (Bld) 0.9 % Normal 0.0 - 2.0 % [facility]eAuto[facility] Basophils/Leukocytes Auto (Bld) [Pure # fraction] 0.1 E9/L Normal 0.0 - 0.2 E9/L [facility] Eosinophils/100 WBC (Bld) 2.4 % Normal 0.0 - 8.0 % [facility] Eosinophils/Leukocyte s Auto (Bld) [Pure # fraction] 0.2 E9/L Normal 0.0 - 0.5 E9/L [facility] Lymphocytes/100 WBC (Bld) 24.1 % Normal 14.0 - 50.0 % [facility] Lymphocytes/Leukocyte s Auto (Bld) [Pure # fraction] 1.6 E9/L Normal 1.0 - 4.0 E9/L [facility] Monocytes/100 WBC (Bld) 8.3 % Normal 4.0 - 14.0 % [facility] Monocytes/Leukocytes Auto (Bld) [Pure # fraction] 0.6 E9/L Normal 0.2 - 1.0 E9/L [facility] Neutrophils/100 WBC (Bld) 64.3 % Normal 36.0 - 75.0 % [facility] Neutrophils/Leukocyte s Auto (Bld) [Pure # fraction] 4.4 E9/L Normal 2.0 - 7.5 E9/L [facility] HEMATOLOGYOrdered By: Isaac Herring on 07-01-2022 Erythrocyte distribution width (RBC) [Ratio] 16.3 % High 10.9 - 14.2 % [facility] Hematocrit (Bld) [Volume fraction] 30.4 % Low 37.7 - 49.0 % [facility] Hemoglobin (Bld) [Mass/Vol] 10.0 g/dL Low 13.5 - 17.5 gm/dL [facility] MCH (RBC) [Entitic mass] 25.7 pg Low 27.0 - 34.0 pg [facility] MCHC (RBC) [Mass/Vol] 32.8 g/dL Normal 31.4 - 36.0 gm/dL [facility] MCV (RBC) [Entitic vol] 78.4 fL Low 80.0 - 100.0 fL [facility] Platelet mean volume (Bld) [Entitic vol] 8.4 fL Normal 6.4 - 10.8 fL [facility] Platelets (Bld) [#/Vol] 316.0 E9/L Normal 150.0 - 500.0 E9/L [facility] HemeAutoSS RBC (Bld) [#/Vol] 3.9 E12/L Low 4.3 - 5.9 E12/L [facility] HemeAutoSS WBC corrected for nucl RBC Auto (Bld) [#/Vol] 6.8 E9/L Normal 4.0 - 11.0 E9/L [facility] HemeAutoSS PT & PTTon 07-01-2022 aPTT Coag (PPP) [Time] 42.7 second(s) High 25.1-36.5 [facility] Comment on above: Result Comment: Para meter 15 days - 4 weeks 1 - 5 months 6 - 11 months 1 - 5 years 6 - 10 years 11 - 17 years PTT Mean: 35.4 (27.6-45.6) Mean: 33.5 (24.8-40.7) Mean: 32.4 (25.1-40.7) Mean: 31.6 (24.0-39.2) Mean: 31.6 (26.9-38.7) Mean: 31.0 (24.6-38.4) Pediatric Reference ranges were obtained from a study by Jose Juan Olguin et al. prepared from 1437 samples obtained at 7 different centers using the same coagulation reagent and instrumentation as [facility]. Currently there are no coagulation studies available worldwide for children to 14 days, and no normal ranges. Heparin therapeutic range (represented by Anti-Factor Xa activity of 0.2 - 0.4 U/mL) corresponds to PTT of 56.6 - 109.0 sec. Performed By: #### 1 [id number], 96518166, 2744289, 7552761, 8897808 ####[facility] [address] [place] [address] INR Coag (PPP) [Relative time] 1.1 {INR} Invalid Interpretation Code [facility] Comment on above: Result Comment: INR results are specifically intended to assess patients stabilized on long-term Anticoagulation therapy suggested INR?s ?Less Intensive Anticoagulation? 2.0 ? 3.0Conventional Range 3.0 ? 4.5 Performed By: #### 1 0477366, 50077322, 4403774, 3224699, 4349062 ####[facility] [address] [place] [address] PT Coag (PPP) [Time] 12.3 second(s) Normal 9.4-12.5 [facility] Comment on above: Result Comment: 15 d ays - 4 weeks 1 - 5 months 6 -11 months 1 ? 5 years 6 ? 10 years 11 -17 years Mean: 11.2 (9.5 ? 12.6) Mean: 11.0 (9.7 ? 12.8) Mean: 11.0 (9.8 ? 13.0) Mean: 11.3 (9.9 ? 13.4) Mean: 11.7 (10.0 ? 14.6) Mean: 11.8 (10.0 - 14.1) Pediatric Reference ranges were obtained from a study by sierra Ceja. prepared from 1437 samples obtained at 7 different centers using the same coagulation reagent and instrumentation as [facility]. Currently there are no coagulation studies available worldwide for children to 14 days, and no normal ranges. Performed By: #### 1 5737823, 74142951, 6332085, 3434826, 3859134 ####[facility] [address] [place] [address] Progress Note-Physicianon Progress Note-Physician Normal [facility] Comment on above: Result Comment: Elec tronically Signed By: Ramiro Epperson DPM\.br\Date and Time Signed: 07/01/22 13:17 EST eGFRon 07-01-2022 GFR/1.73 sq M.predicted among blacks MDRD (S/P/Bld) [Vol rate/Area] mL/min/{1.73_m2} Normal >=59 [facility] Comment on above: Order Comment: Order added by Discern Expert. Result Comment: eGFR is race adjusted. AA=. Performed By: #### 1 1713760, 51859814, 1993427, 6118073, 0469560 ####[facility] [address] [place] [address] GFR/1.73 sq M.predicted among non-blacks MDRD (S/P/Bld) [Vol rate/Area] mL/min/{1.73_m2} Normal >=59 [facility] Comment on above: Order Comment: Order added by Discern Expert. Result Comment: Choral Director claus kidney disease could be indicated at eGFR's of less than 60 mL/min/1.73m2. Kidney failure is indicated at less than 15 mL/min/1.73m2. Performed By: #### 1 4244068, 34304721, 1795522, 4955195, 1041784 ####[facility] [address] [place] [address] Coding Summary.on 06-30-2022 Coding Summary. Normal [facility] Operative Reporton Operative Report Normal [facility] Comment on above: Result Comment: Elec tronically Signed By: Argelia GOODSON, Santos Headley\.br\Date and Time Signed: 06/30/22 10:01 EST Coding Summary.on 06-27-2022 Coding Summary. Normal [facility] Serum or plasma trough vanco mycin levelOrdered By: Ramiro Epperson on 06-27-2022 Vancomycin trough [Mass/Vol] 14.6 ug/mL 10.0-20.0 [facility] Comment on above: Last dose: - Coding Queryon 06-26-2022 Coding Query [facility] Main OR Intraoperative Recor don 06-26-2022 Main OR Intraoperative Record [facility] Multi-Wound Charton 06-26-19 Multi-Wound Chart [id number]#1.00CD:127 Normal [facility] Nursing Assessment - Woundon 06-26-2022 Nursing Assessment - Wound [id number]#1.00CD:127 [facility] Nursing Note - Woundon 06-26 Nursing Note - Wound [id number]#1.00CD:127 [facility] C Blood Charcoalon Blood Culture Charcoal Normal [facility] Comment on above: Performed By: #### 1 1236152 ####[facility] [address] [place] [address] Coding Queryon 06-25-2022 Coding Query [facility] Consent for Treatmenton 06-11 Consent for Treatment [id number]#1.00CD:127 [facility] Physician Orderon 06-25-2022 Physician Order [id number]#1.00CD:127 [facility] Progress Note - Woundon 06-11 Progress Note - Wound [id number]#1.00CD:127 [facility] Coding Queryon 06-24-2022 Coding Query [facility] Consent for PICC lineon 06-11 Consent for PICC line [id number]#1.00CD:127 [facility] General Message Officeon General Message Office [facility] Serum or plasma trough vanco mycin levelOrdered By: Ramiro Epperson on 06-24-2022 Vancomycin trough [Mass/Vol] 13.9 ug/mL 10.0-20.0 [facility] Comment on above: Last dose: - BMPon 06-23-2022 Anion gap [Moles/Vol] 11 mmol/L Normal 6-16 [facility] Comment on above: Performed By: #### 2 099088, 7288224, 08730856 ####[facility] [address] [place] [address] Calcium [Mass/Vol] 8.7 mg/dL Low 8.9-11.1 [facility] Comment on above: Performed By: #### 2 077006, 6807234, 02497266 ####[facility] [address] [place] [address] Chloride [Moles/Vol] 98 mmol/L Low 101-111 [facility] Comment on above: Performed By: #### 2 834685, 8897110, 89706829 ####[facility] [address] [place] [address] CO2 [Moles/Vol] 27 mmol/L Normal 21-31 [facility] Comment on above: Performed By: #### 2 112761, 0962069, 30842120 ####[facility] [address] [place] [address] Creatinine [Mass/Vol] 1.1 mg/dL Normal 0.5-1.3 [facility] Comment on above: Performed By: #### 2 527631, 9876958, 00905039 ####[facility] [address] [place] [address] Glucose [Mass/Vol] 213 mg/dL High 55-199 [facility] Comment on above: Result Comment: If t his glucose result represents a fasting glucose, interpretation should refer to the following reference range: 55-99 mg/dL Performed By: #### 2 737225, 1991322, 84910601 ####[facility] [address] [place] [address] Potassium [Moles/Vol] 3.9 mmol/L Normal 3.5-5.3 [facility] Comment on above: Performed By: #### 2 269739, 0874559, 64851235 ####[facility] [address] [place] [address] Sodium [Moles/Vol] 132 mmol/L Low 135-145 [facility] Comment on above: Performed By: #### 2 878068, 7701276, 84357129 ####[facility] [address] [place] [address] Urea nitrogen [Mass/Vol] 28 mg/dL High 5-21 [facility] Comment on above: Performed By: #### 2 497506, 0332015, 57381260 ####[facility] [address] [place] [address] Urea nitrogen/Creatinine [Mass ratio] 26 No Units High 10-20 [facility] Comment on above: Performed By: #### 2 645823, 5376045, 30822488 ####[facility] [address] [place] [address] C Boneon 06-23-2022 Bone Culture Normal [facility] Comment on above: Performed By: #### 1 8472047 ####[facility] [address] [place] [address] CHEMISTRYOrdered By: Lab ROP User on 06-23-2022 Glucose [Mass/Vol] 273 mg/dL High 55 - 99 mg/dL [facility] POC Subsection Comment on above: Result Comment: Mary flores RN/ POC Device SN [id number] Invalid Interpretation Code FT POC Subsection POC User ID [id number] Invalid Interpretation Code [facility] POC Subsection POC Username EMERITA FAM Invalid Interpretation Code [facility] POC Subsection Glucose [Mass/Vol] 179 mg/dL High 55 - 99 mg/dL [facility] POC Subsection Comment on above: Result Comment: Mary flores RN/ POC Device SN [id number] Invalid Interpretation Code FT POC Subsection POC User ID [id number] Invalid Interpretation Code [facility] POC Subsection POC Username MARY RAMSEY Invalid Interpretation Code [facility] POC Subsection CHEMISTRYOrdered By: SYSTEM SYSTEM on 06-23-2022 Anion gap [Moles/Vol] 11 mmol/L Normal 6 - 16 mEq/L [facility] C Remisol Calcium [Mass/Vol] 8.7 mg/dL Low 8.9 - 11. 1 mg/dL [facility] Chloride [Moles/Vol] 98 mmol/L Low 101 - 1 11 mmol/L [facility] Remisol CO2 [Moles/Vol] 27 mmol/L Normal 21 - 31 mmol/L [facility] Remisol Creatinine [Mass/Vol] 1.1 mg/dL Normal 0.5 - 1.3 mg/dL [facility] GFR/1.73 sq M.predicted among blacks MDRD (S/P/Bld) [Vol rate/Area] mL/min/1.73 m2 Normal >=59mL/min/1 .73 m2 [facility] Chem S GFR/1.73 sq M.predicted among non-blacks MDRD (S/P/Bld) [Vol rate/Area] mL/min/1.73 m2 Normal >=59mL/min/1 .73 m2 [facility] Chem S Glucose [Mass/Vol] 213 mg/dL High 55 - 199 mg/dL [facility] Remisol Magnesium [Mass/Vol] 2.0 mg/dL Normal 1.3 - 2 .4 mg/dL [facility] Remisol Potassium [Moles/Vol] 3.9 mmol/L Normal 3.5 - 5.3 mmol/L [facility] Remisol Sodium [Moles/Vol] 132 mmol/L Low 135 - 145 mmol/L [facility] Remisol Urea nitrogen [Mass/Vol] 28 mg/dL High 5 - 21 mg/dL [facility] Remisol Urea nitrogen/Creatinine [Mass ratio] 26 mg/mg High 10 - 20 [facility] Remisol Capillary Glucose POCon 06-11 Glucose [Mass/Vol] 273 mg/dL High 55-99 [facility] Comment on above: Result Comment: Mary COLLAZO Performed By: #### 2 [id number] ####[facility] [address] [place] [address] Glucose [Mass/Vol] 179 mg/dL High 55-99 [facility] Comment on above: Result Comment: Mary COLLAZO Performed By: #### 2 [id number] ####[facility] [address] [place] [address] Coding Summary.on 06-23-2022 Coding Summary. Normal [facility] Consent for Anesthesiaon Consent for Anesthesia [id number]#1.00CD:127 Normal [facility] Discharge Instructionson Discharge Instructions [id number]#1.00CD:127 Normal [facility] Inpatient Clinical Summaryon 06-23-2022 Inpatient Clinical Summary Normal [facility] Inpatient Patient Summaryon 06-23-2022 Inpatient Patient Summary Normal [facility] Inpatient Patient Summary Normal [facility] Interdisciplinary Note - Virgil e Manageron 06-23-2022 Interdisciplinary Note - Pharmacy Analyst Normal [facility] Comment on above: Result Comment: Elec tronically Signed By: Parish HERBERT, Nathan\.br\Date and Time Signed: 06/23/22 14:44 EST IntraOperative Documentson 0 06-23-2022 IntraOperative Documents [id number]#1.00CD:127 Normal [facility] Magnesiumon 06-23-2022 Magnesium [Mass/Vol] 2.0 mg/dL Normal 1.3-2.4 [facility] Comment on above: Performed By: #### 2 953030, 7862842, 85085408 ####[facility] [address] [place] [address] Main OR PACU I Recordon 06-11 Main OR PACU I Record Normal [facility] Monitor Recordon 06-23-2022 Monitor Record [id number]#1.00CD:127 Normal [facility] Monitor Record [id number]#1.00CD:127 Normal [facility] Monitor Record [id number]#1.00CD:127 Normal [facility] Transfer Documentson 023 Transfer Documents [id number]#1.00CD:127 Normal [facility] XR Chest Single Viewon 06-23 XR Chest Single View Normal [facility] eGFRon 06-23-2022 GFR/1.73 sq M.predicted among blacks MDRD (S/P/Bld) [Vol rate/Area] mL/min/{1.73_m2} Normal >=59 [facility] Comment on above: Order Comment: Order added by Discern Expert. Result Comment: eGFR is race adjusted. AA=. Performed By: #### 2 757888, 2471689, 00478587 ####[facility] [address] [place] [address] GFR/1.73 sq M.predicted among non-blacks MDRD (S/P/Bld) [Vol rate/Area] mL/min/{1.73_m2} Normal >=59 [facility] Comment on above: Order Comment: Order added by Discern Expert. Result Comment: Choral Director claus kidney disease could be indicated at eGFR's of less than 60 mL/min/1.73m2. Kidney failure is indicated at less than 15 mL/min/1.73m2. Performed By: #### 2 765306, 8878044, 60141122 ####[facility] [address] [place] [address] Auto Diffon 06-22-2022 Basophils/100 WBC (Bld) 0.6 % Normal 0.0-2.0 [facility] Comment on above: Order Comment: Order Added by Discern Expert. Performed By: #### 2 653024, 9454737, 03618826, 2654372 ####[facility] [address] [place] [address] Basophils/Leukocytes Auto (Bld) [Pure # fraction] 0.1 E9/L Normal 0.0-0.2 [facility] Comment on above: Order Comment: Order Added by Discern Expert. Performed By: #### 2 441713, 3726330, 58840305, 1282222 ####[facility] [address] [place] [address] Eosinophils/100 WBC (Bld) 4.1 % Normal 0.0-8.0 [facility] Comment on above: Order Comment: Order Added by Discern Expert. Performed By: #### 2 330458, 4538691, 94994668, 6031723 ####[facility] [address] [place] [address] Eosinophils/Leukocyte s Auto (Bld) [Pure # fraction] 0.4 E9/L Normal 0.0-0.5 [facility] Comment on above: Order Comment: Order Added by Discern Expert. Performed By: #### 2 684637, 2213463, 06857978, 3154700 ####[facility] [address] [place] [address] Lymphocytes/100 WBC (Bld) 24.3 % Normal 14.0-50.0 [facility] Comment on above: Order Comment: Order Added by Frankie Expert. Performed By: #### 2 891353, 2220439, 97825614, 6351179 ####[facility] [address] [place] [address] Lymphocytes/Leukocyte s Auto (Bld) [Pure # fraction] 2.3 E9/L Normal 1.0-4.0 [facility] Comment on above: Order Comment: Order Added by Discern Expert. Performed By: #### 2 370859, 4410265, 00649000, 4142046 ####[address] [address] Monocytes/100 WBC (Bld) 10.6 % Normal 4.0-14.0 [facility] Comment on above: Order Comment: Order Added by Frankie Expert. Performed By: #### 2 415285, 3661322, 72302406, 4540883 ####[address] [address] Monocytes/Leukocytes Auto (Bld) [Pure # fraction] 1.0 E9/L Normal 0.2-1.0 [facility] Comment on above: Order Comment: Order Added by Frankie Expert. Performed By: #### 2 221839, 9770703, 08511188, 0224020 ####[address] [address] Neutrophils/100 WBC (Bld) 60.4 % Normal 36.0-75.0 [facility] Comment on above: Order Comment: Order Added by Frankie Expert. Performed By: #### 2 021955, 5906711, 37300635, 4039611 ####[address] [place] [address] Neutrophils/Leukocyte s Auto (Bld) [Pure # fraction] 5.8 E9/L Normal 2.0-7.5 [facility] Comment on above: Order Comment: Order Added by Frankie Expert. Performed By: #### 2 969994, 8688267, 89894018, 2588966 ####[address] [place] [address] BMPon 06-22-2022 Anion gap [Moles/Vol] 10 mmol/L Normal 6-16 [facility] Comment on above: Performed By: #### 2 109537, 9091256, 05344445, 8371857 ####[facility] [address] [facility] [place] [address] Calcium [Mass/Vol] 8.6 mg/dL Low 8.9-11.1 [facility] Comment on above: Performed By: #### 2 862323, 5885225, 28905770, 1820616 ####[facility] [address] [facility] [place] [address] Chloride [Moles/Vol] 99 mmol/L Low 101-111 [facility] Comment on above: Performed By: #### 2 427246, 7110716, 22242720, 7779816 ####[facility] [address] [place] [address] CO2 [Moles/Vol] 27 mmol/L Normal 21-31 [facility] Comment on above: Performed By: #### 2 577675, 9461122, 05593339, 1356143 ####[facility] [address] [facility] [address] Creatinine [Mass/Vol] 1.0 mg/dL Normal 0.5-1.3 [facility] Comment on above: Performed By: #### 2 927790, 4979504, 84387632, 1117217 ####[facility] [address] [facility] [address] Glucose [Mass/Vol] 150 mg/dL Normal 55-199 [facility] Comment on above: Result Comment: If t his glucose result represents a fasting glucose, interpretation should refer to the following reference range: 55-99 mg/dL Performed By: #### 2 211443, 4553760, 77697924, 4519420 ####[facility] [address] [facility] [place] [address] Potassium [Moles/Vol] 3.6 mmol/L Normal 3.5-5.3 [facility] Comment on above: Performed By: #### 2 091117, 1481243, 45220550, 8395585 ####[facility] [address] [place] [address] Sodium [Moles/Vol] 132 mmol/L Low 135-145 [facility] Comment on above: Performed By: #### 2 136331, 3036247, 50432746, 9106693 ####[facility] [address] [place] [address] Urea nitrogen [Mass/Vol] 23 mg/dL High 5-21 [facility] Comment on above: Performed By: #### 2 571742, 1859177, 18667167, 1802241 ####[facility] [address] [place] [address] Urea nitrogen/Creatinine [Mass ratio] 23 No Units High 10-20 [facility] Comment on above: Performed By: #### 2 872971, 4752286, 81652088, 2917251 ####[facility] [address] [place] [address] CBC w/ Auto Diffon 3 Erythrocyte distribution width (RBC) [Ratio] 16.5 % High 10.9-14.2 [facility] Comment on above: Performed By: #### 2 100808, 1705322, 16082504, 9681779 ####[facility] [address] [place] [address] Hematocrit (Bld) [Volume fraction] 28.8 % Low 37.7-49.0 [facility] Comment on above: Performed By: #### 2 676693, 8775382, 49744699, 4252786 ####[facility] [address] [place] [address] Hemoglobin (Bld) [Mass/Vol] 9.5 g/dL Low 13.5-17.5 [facility] Comment on above: Performed By: #### 2 697076, 0275293, 82169786, 1132618 ####[address] [place] [address] MCH (RBC) [Entitic mass] 26.5 pg Low 27.0-34.0 [facility] Comment on above: Performed By: #### 2 195851, 3362543, 98665797, 7399516 ####[address] [address] MCHC (RBC) [Mass/Vol] 33.1 g/dL Normal 31.4-36.0 [facility] Comment on above: Performed By: #### 2 089396, 2173831, 14613111, 2716790 ####[place] [place] MCV (RBC) [Entitic vol] 80.0 fL Normal 80.0-100.0 [facility] Comment on above: Performed By: #### 2 943387, 9881049, 94676842, 4063529 ####[address] [address] Platelet mean volume (Bld) [Entitic vol] 9.5 fL Normal 6.4-10.8 [facility] Comment on above: Performed By: #### 2 771811, 0580224, 86322367, 1547807 ####[address] [address] Platelets (Bld) [#/Vol] 253.0 E9/L Normal 150.0-500.0 [facility] Comment on above: Performed By: #### 2 927863, 7586455, 12009136, 5734765 ####[address] [address] RBC (Bld) [#/Vol] 3.6 E12/L Low 4.3-5.9 [facility] Comment on above: Performed By: #### 2 972884, 8043487, 63674202, 1104666 ####[address] [address] WBC corrected for nucl RBC Auto (Bld) [#/Vol] 9.5 E9/L Normal 4.0-11.0 [facility] Comment on above: Performed By: #### 2 669218, 5725789, 52779422, 9275121 ####[facility] [address] [place] [address] CHEMISTRYOrdered By: Lab ROP User on 06-22-2022 Glucose [Mass/Vol] 326 mg/dL High 55 - 99 mg/dL [facility] POC Subsection Comment on above: Result Comment: Mary flores RN/ POC Device SN [id number] Invalid Interpretation Code [facility] POC Subsection POC User ID [id number] Invalid Interpretation Code [facility] POC Subsection POC Username CHRISTO PILLO Invalid Interpretation Code [facility] POC Subsection CHEMISTRYOrdered By: SYSTEM SYSTEM on 06-22-2022 Vancomycin trough [Moles/Vol] 16 microgram/mL Normal 10 - 20 mcg/mL [facility] Remisol Anion gap [Moles/Vol] 10 mmol/L Normal 6 - 16 mEq/L F [facility] Remisol Calcium [Mass/Vol] 8.6 mg/dL Low 8.9 - 11. 1 mg/dL [facility] Remisol Chloride [Moles/Vol] 99 mmol/L Low 101 - 1 11 mmol/L [facility] Remisol CO2 [Moles/Vol] 27 mmol/L Normal 21 - 31 mmol/L [facility] Remisol Creatinine [Mass/Vol] 1.0 mg/dL Normal 0.5 - 1.3 mg/dL [facility] Rem[facility] GFR/1.73 sq M.predicted among blacks MDRD (S/P/Bld) [Vol rate/Area] mL/min/1.73 m2 Normal >=59mL/min/1 .73 m2 [facility] Chem S GFR/1.73 sq M.predicted among non-blacks MDRD (S/P/Bld) [Vol rate/Area] mL/min/1.73 m2 Normal >=59mL/min/1 .73 m2 [facility] Chem S Glucose [Mass/Vol] 150 mg/dL Normal 55 - 199 mg/dL [facility] Remisol Potassium [Moles/Vol] 3.6 mmol/L Normal 3.5 - 5.3 mmol/L [facility] Remisol Sodium [Moles/Vol] 132 mmol/L Low 135 - 145 mmol/L [facility] Remisol Urea nitrogen [Mass/Vol] 23 mg/dL High 5 - 21 mg/dL [facility] Remisol Urea nitrogen/Creatinine [Mass ratio] 23 mg/mg High 10 - 20 [facility] Remisol Capillary Glucose POCon 06-11 Glucose [Mass/Vol] 326 mg/dL High 55-99 [facility] Comment on above: Result Comment: Mary COLLAZO Performed By: #### 2 [id number] ####[facility] [address] [place] [address] Glucose [Mass/Vol] 197 mg/dL High 55-99 [facility] Comment on above: Result Comment: Mary flores RN/ Performed By: #### 2 [id number] ####[facility] [address] [place] [address] Glucose [Mass/Vol] 327 mg/dL High 55-99 [facility] Comment on above: Result Comment: Mary COLLAZO Performed By: #### 2 [id number] ####[facility] [address] [place] [address] Glucose [Mass/Vol] 169 mg/dL High 55-99 [facility] Comment on above: Result Comment: Mary COLLAZO Performed By: #### 2 [id number] ####[facility] [address] [place] [address] HEMATOLOGYOrdered By: SYSTEM SYSTEM on 06-22-2022 Basophils/100 WBC (Bld) 0.6 % Normal 0.0 - 2.0 % [facility] HemeAutoSS Basophils/Leukocytes Auto (Bld) [Pure # fraction] 0.1 E9/L Normal 0.0 - 0.2 E9/L [facility] Eosinophils/100 WBC (Bld) 4.1 % Normal 0.0 - 8.0 % [facility]eAutoSS Eosinophils/Leukocyte s Auto (Bld) [Pure # fraction] 0.4 E9/L Normal 0.0 - 0.5 E9/L [facility] HemeAutoSS Lymphocytes/100 WBC (Bld) 24.3 % Normal 14.0 - 50.0 % [facility] HemeAutoSS Lymphocytes/Leukocyte s Auto (Bld) [Pure # fraction] 2.3 E9/L Normal 1.0 - 4.0 E9/L [facility] HemeAutoSS Monocytes/100 WBC (Bld) 10.6 % Normal 4.0 - 14.0 % [facility]eAutoSS Monocytes/Leukocytes Auto (Bld) [Pure # fraction] 1.0 E9/L Normal 0.2 - 1.0 E9/L [facility]eAutoSS Neutrophils/100 WBC (Bld) 60.4 % Normal 36.0 - 75.0 % [facility]eAutoSS Neutrophils/Leukocyte s Auto (Bld) [Pure # fraction] 5.8 E9/L Normal 2.0 - 7.5 E9/L [facility] HemeAutoSS HEMATOLOGYOrdered By: Franci Lane on 06-22-2022 Erythrocyte distribution width (RBC) [Ratio] 16.5 % High 10.9 - 14.2 % [facility] Hematocrit (Bld) [Volume fraction] 28.8 % Low 37.7 - 49.0 % [facility] Hemoglobin (Bld) [Mass/Vol] 9.5 g/dL Low 13.5 - 17.5 gm/dL [facility] MCH (RBC) [Entitic mass] 26.5 pg Low 27.0 - 34.0 pg [facility]eAuto[facility] MCHC (RBC) [Mass/Vol] 33.1 g/dL Normal 31.4 - 36.0 gm/dL [facility]eAutoSS MCV (RBC) [Entitic vol] 80.0 fL Normal 80.0 - 100.0 fL [facility]eAutoSS Platelet mean volume (Bld) [Entitic vol] 9.5 fL Normal 6.4 - 10.8 fL [facility]eAutoSS Platelets (Bld) [#/Vol] 253.0 E9/L Normal 150.0 - 500.0 E9/L [facility]eAutoSS RBC (Bld) [#/Vol] 3.6 E12/L Low 4.3 - 5.9 E12/L [facility]eAuto[facility] WBC corrected for nucl RBC Auto (Bld) [#/Vol] 9.5 E9/L Normal 4.0 - 11.0 E9/L [facility] HemeAutoSS Monitor Recordon 06-22-2022 Monitor Record [id number]:127 Normal [facility] Progress Note - Pharmacyon 0 06-22-2022 Progress Note - Pharmacy Normal [facility] Progress Note-Physicianon Progress Note-Physician Normal [facility] Comment on above: Result Comment: Elec tronically Signed By: Geovanna GILBERT, hCaitanya Munoz\.br\Date and Time Signed: 06/22/22 11:06 EST Vanco Peak[place] 06-22-2022 VANCOMYCIN 39 microgram/mL Normal 20-40 [facility] Comment on above: Performed By: #### 2 702784 ####[facility] [address] [place] [address] Vanco Troughon 06-22-2022 VANCOMYCIN 16 microgram/mL Normal 10-20 [facility] Comment on above: Performed By: #### 2 950519 ####[facility] [address] [place] [address] eGFRon 06-22-2022 GFR/1.73 sq M.predicted among blacks MDRD (S/P/Bld) [Vol rate/Area] mL/min/{1.73_m2} Normal >=59 [facility] Comment on above: Order Comment: Order added by Discern Expert. Result Comment: eGFR is race adjusted. AA=. Performed By: #### 2 842207, 7918062, 02021691, 0127923 ####[facility] [address] [place] [address] GFR/1.73 sq M.predicted among non-blacks MDRD (S/P/Bld) [Vol rate/Area] mL/min/{1.73_m2} Normal >=59 [facility] Comment on above: Order Comment: Order added by Discern Expert. Result Comment: Choral Director claus kidney disease could be indicated at eGFR's of less than 60 mL/min/1.73m2. Kidney failure is indicated at less than 15 mL/min/1.73m2. Performed By: #### 2 033841, 6483789, 47092028, 3635594 ####[facility] [address] [place] [address] Auto Diffon 06-21-2022 Basophils/100 WBC (Bld) 0.7 % Normal 0.0-2.0 [facility] Comment on above: Order Comment: Order Added by Discern Expert. Performed By: #### 2 896283, 94299314, 5178280, 0959588 ####[address] [address] Basophils/Leukocytes Auto (Bld) [Pure # fraction] 0.1 E9/L Normal 0.0-0.2 [facility] Comment on above: Order Comment: Order Added by Discern Expert. Performed By: #### 2 734576, 23890803, 2136563, 1483121 ####[address] [address] Eosinophils/100 WBC (Bld) 5.5 % Normal 0.0-8.0 [facility] Comment on above: Order Comment: Order Added by Discern Expert. Performed By: #### 2 650539, 94347006, 4128950, 2695846 ####[address] [address] Eosinophils/Leukocyte s Auto (Bld) [Pure # fraction] 0.4 E9/L Normal 0.0-0.5 [facility] Comment on above: Order Comment: Order Added by Discern Expert. Performed By: #### 2 509941, 34756793, 3565599, 4890054 ####[address] [address] Lymphocytes/100 WBC (Bld) 22.0 % Normal 14.0-50.0 [facility] Comment on above: Order Comment: Order Added by Discern Expert. Performed By: #### 2 951476, 32505392, 7142245, 1903610 ####[address] [address] Lymphocytes/Leukocyte s Auto (Bld) [Pure # fraction] 1.7 E9/L Normal 1.0-4.0 [facility] Comment on above: Order Comment: Order Added by Discern Expert. Performed By: #### 2 163781, 01240639, 2179055, 0744717 ####[address] [place] [address] Monocytes/100 WBC (Bld) 9.8 % Normal 4.0-14.0 [facility] Comment on above: Order Comment: Order Added by Discern Expert. Performed By: #### 2 445894, 00142485, 2759779, 6432852 ####[facility] [address] [place] [address] Monocytes/Leukocytes Auto (Bld) [Pure # fraction] 0.8 E9/L Normal 0.2-1.0 [facility] Comment on above: Order Comment: Order Added by Frankie Expert. Performed By: #### 2 132293, 21590091, 3977745, 5150948 ####[address] [place] [address] Neutrophils/100 WBC (Bld) 62.0 % Normal 36.0-75.0 [facility] Comment on above: Order Comment: Order Added by Frankie Expert. Performed By: #### 2 468805, 52208319, 7883820, 3009921 ####[address] [place] [address] Neutrophils/Leukocyte s Auto (Bld) [Pure # fraction] 4.8 E9/L Normal 2.0-7.5 [facility] Comment on above: Order Comment: Order Added by Frankie Expert. Performed By: #### 2 510739, 36602249, 0384373, 9980877 ####[facility] [address] [place] [address] BMPon 06-21-2022 Anion gap [Moles/Vol] 11 mmol/L Normal 6-16 [facility] Comment on above: Performed By: #### 2 473647, 70424196, 2011021, 8038356 ####[address] [place] [address] Calcium [Mass/Vol] 8.5 mg/dL Low 8.9-11.1 [facility] Comment on above: Performed By: #### 2 891223, 48756080, 3830464, 6080507 ####[facility] [address] [place] [address] Chloride [Moles/Vol] 101 mmol/L Normal 101-111 [facility] Comment on above: Performed By: #### 2 415458, 64913927, 9664635, 8162388 ####[facility] [address] [place] [address] CO2 [Moles/Vol] 28 mmol/L Normal 21-31 [facility] Comment on above: Performed By: #### 2 950918, 47936515, 4571610, 5523629 ####[facility] [address] [place] [address] Creatinine [Mass/Vol] 1.1 mg/dL Normal 0.5-1.3 [facility] Comment on above: Performed By: #### 2 902135, 67756287, 2959852, 4280063 ####[facility] [address] [place] [address] Glucose [Mass/Vol] 233 mg/dL High 55-199 [facility] Comment on above: Result Comment: If t his glucose result represents a fasting glucose, interpretation should refer to the following reference range: 55-99 mg/dL Performed By: #### 2 095132, 89422537, 5329537, 9589502 ####[facility] [address] [place] [address] Potassium [Moles/Vol] 3.8 mmol/L Normal 3.5-5.3 [facility] Comment on above: Performed By: #### 2 771328, 24449594, 1378404, 4904162 ####[facility] [address] [place] [address] Sodium [Moles/Vol] 136 mmol/L Normal 135-145 [facility] Comment on above: Performed By: #### 2 678959, 24477297, 1617132, 1666253 ####[facility] [address] [place] [address] Urea nitrogen [Mass/Vol] 24 mg/dL High 5-21 [facility] Comment on above: Performed By: #### 2 315246, 08188768, 1406668, 1761652 ####[facility] [address] [place] [address] Urea nitrogen/Creatinine [Mass ratio] 22 No Units High 10-20 [facility] Comment on above: Performed By: #### 2 981745, 16646206, 3851209, 4546509 ####[facility] [address] [place] [address] CBC w/ Auto Diffon Erythrocyte distribution width (RBC) [Ratio] 16.3 % High 10.9-14.2 [facility] Comment on above: Performed By: #### 2 464645, 63298804, 2148708, 6826028 ####[facility] [address] [place] [address] Hematocrit (Bld) [Volume fraction] 29.4 % Low 37.7-49.0 [facility] Comment on above: Performed By: #### 2 962558, 30673451, 0835383, 3987614 ####[facility] [address] [place] [address] Hemoglobin (Bld) [Mass/Vol] 9.6 g/dL Low 13.5-17.5 [facility] Comment on above: Performed By: #### 2 271801, 82295672, 5341478, 8391294 ####[facility] [address] [place] [address] MCH (RBC) [Entitic mass] 26.0 pg Low 27.0-34.0 [facility] Comment on above: Performed By: #### 2 631023, 45056543, 9556581, 1316259 ####[facility] [address] [place] [address] MCHC (RBC) [Mass/Vol] 32.5 g/dL Normal 31.4-36.0 [facility] Comment on above: Performed By: #### 2 411516, 26784201, 1192306, 0891711 ####[address] [place] [address] MCV (RBC) [Entitic vol] 79.9 fL Low 80.0-100.0 [facility] Comment on above: Performed By: #### 2 994732, 89330908, 4676052, 5941222 ####[address] [address] Platelet mean volume (Bld) [Entitic vol] 9.1 fL Normal 6.4-10.8 [facility] Comment on above: Performed By: #### 2 288656, 54598411, 2377344, 0143557 ####[place] Platelets (Bld) [#/Vol] 239.0 E9/L Normal 150.0-500.0 [facility] Comment on above: Performed By: #### 2 902347, 24052666, 4206505, 3223536 ####[address] [address] RBC (Bld) [#/Vol] 3.7 E12/L Low 4.3-5.9 [facility] Comment on above: Performed By: #### 2 775175, 33503241, 6641813, 7401723 ####[address] [address] WBC corrected for nucl RBC Auto (Bld) [#/Vol] 7.7 E9/L Normal 4.0-11.0 [facility] Comment on above: Performed By: #### 2 925913, 33419203, 0851950, 8306902 ####[address] [address] CHEMISTRYOrdered By: SYSTEM SYSTEM on 06-21-2022 Vancomycin peak [Moles/Vol] 39 microgram/mL Normal 20 - 40 mcg/mL [facility] Anion gap [Moles/Vol] 11 mmol/L Normal 6 - 16 mEq/L F [facility] Rem[facility] Calcium [Mass/Vol] 8.5 mg/dL Low 8.9 - 11. 1 mg/dL [facility] Chloride [Moles/Vol] 101 mmol/L Normal 101 - 1 11 mmol/L [facility] CO2 [Moles/Vol] 28 mmol/L Normal 21 - 31 mmol/L [facility] Creatinine [Mass/Vol] 1.1 mg/dL Normal 0.5 - 1.3 mg/dL [facility] GFR/1.73 sq M.predicted among blacks MDRD (S/P/Bld) [Vol rate/Area] mL/min/1.73 m2 Normal >=59mL/min/1 .73 m2 [facility] Chem S GFR/1.73 sq M.predicted among non-blacks MDRD (S/P/Bld) [Vol rate/Area] mL/min/1.73 m2 Normal >=59mL/min/1 .73 m2 [facility] Chem S Glucose [Mass/Vol] 233 mg/dL High 55 - 199 mg/dL [facility] Potassium [Moles/Vol] 3.8 mmol/L Normal 3.5 - 5.3 mmol/L [facility] Sodium [Moles/Vol] 136 mmol/L Normal 135 - 145 mmol/L [facility] Urea nitrogen [Mass/Vol] 24 mg/dL High 5 - 21 mg/dL [facility] Remisol Urea nitrogen/Creatinine [Mass ratio] 22 mg/mg High 10 - 20 [facility] Remisol Capillary Glucose POCon 06-11 Glucose [Mass/Vol] 252 mg/dL High 55-99 [facility] Comment on above: Result Comment: Mary COLLAZO Performed By: #### 2 [id number] ####[facility] [address] [place] [address] Glucose [Mass/Vol] 323 mg/dL High 55-99 [facility] Comment on above: Result Comment: Mary COLLAZO Performed By: #### 2 [id number] ####[facility] [address] [place] [address] Glucose [Mass/Vol] 256 mg/dL High 55-99 [facility] Comment on above: Performed By: #### 2 [id number] ####[facility] [address] [place] [address] Glucose [Mass/Vol] 198 mg/dL High 55-99 [facility] Comment on above: Result Comment: Mary flores RN/ Performed By: #### 2 [id number] ####[facility] [address] [place] [address] HEMATOLOGYOrdered By: SYSTEM SYSTEM on 06-21-2022 Basophils/100 WBC (Bld) 0.7 % Normal 0.0 - 2.0 % [facility] Basophils/Leukocytes Auto (Bld) [Pure # fraction] 0.1 E9/L Normal 0.0 - 0.2 E9/L [facility] Eosinophils/100 WBC (Bld) 5.5 % Normal 0.0 - 8.0 % [facility] Eosinophils/Leukocyte s Auto (Bld) [Pure # fraction] 0.4 E9/L Normal 0.0 - 0.5 E9/L [facility] Lymphocytes/100 WBC (Bld) 22.0 % Normal 14.0 - 50.0 % [facility] Lymphocytes/Leukocyte s Auto (Bld) [Pure # fraction] 1.7 E9/L Normal 1.0 - 4.0 E9/L [facility] Monocytes/100 WBC (Bld) 9.8 % Normal 4.0 - 14.0 % [facility] Monocytes/Leukocytes Auto (Bld) [Pure # fraction] 0.8 E9/L Normal 0.2 - 1.0 E9/L [facility] Neutrophils/100 WBC (Bld) 62.0 % Normal 36.0 - 75.0 % [facility] Neutrophils/Leukocyte s Auto (Bld) [Pure # fraction] 4.8 E9/L Normal 2.0 - 7.5 E9/L [facility] HEMATOLOGYOrdered By: Franci Lane on 06-21-2022 Erythrocyte distribution width (RBC) [Ratio] 16.3 % High 10.9 - 14.2 % [facility] Hematocrit (Bld) [Volume fraction] 29.4 % Low 37.7 - 49.0 % [facility] Hemoglobin (Bld) [Mass/Vol] 9.6 g/dL Low 13.5 - 17.5 gm/dL [facility] MCH (RBC) [Entitic mass] 26.0 pg Low 27.0 - 34.0 pg [facility] MCHC (RBC) [Mass/Vol] 32.5 g/dL Normal 31.4 - 36.0 gm/dL [facility] MCV (RBC) [Entitic vol] 79.9 fL Low 80.0 - 100.0 fL [facility] Platelet mean volume (Bld) [Entitic vol] 9.1 fL Normal 6.4 - 10.8 fL [facility] Platelets (Bld) [#/Vol] 239.0 E9/L Normal 150.0 - 500.0 E9/L [facility] RBC (Bld) [#/Vol] 3.7 E12/L Low 4.3 - 5.9 E12/L [facility] WBC corrected for nucl RBC Auto (Bld) [#/Vol] 7.7 E9/L Normal 4.0 - 11.0 E9/L [facility] Interdisciplinary Note - Nut ritionon 06-21-2022 Interdisciplinary Note - Nutrition Normal [facility] Comment on above: Result Comment: Elec tronically Signed By: Naga MS, RDN, LD, Tierney K\.br\Date and Time Signed: 06/21/22 13:22 EST Monitor Recordon 06-21-2022 Monitor Record [id number]:127 Normal [facility] Progress Note-Physicianon Progress Note-Physician Normal [facility] Comment on above: Result Comment: Elec tronically Signed By: Geovanna GILBERT, Chaitanya Munoz\.br\Date and Time Signed: 06/21/22 13:59 EST eGFRon 06-21-2022 GFR/1.73 sq M.predicted among blacks MDRD (S/P/Bld) [Vol rate/Area] mL/min/{1.73_m2} Normal >=59 [facility] Comment on above: Order Comment: Order added by Discern Expert. Result Comment: eGFR is race adjusted. AA=. Performed By: #### 2 294610, 78944628, 3156017, 2634152 ####[facility] [address] [place] [address] GFR/1.73 sq M.predicted among non-blacks MDRD (S/P/Bld) [Vol rate/Area] mL/min/{1.73_m2} Normal >=59 [facility] Comment on above: Order Comment: Order added by Discern Expert. Result Comment: Choral Director claus kidney disease could be indicated at eGFR's of less than 60 mL/min/1.73m2. Kidney failure is indicated at less than 15 mL/min/1.73m2. Performed By: #### 2 724476, 34276476, 0269056, 2181917 ####[facility] [address] [place] [address] Auto Diffon 06-20-2022 Basophils/100 WBC (Bld) 0.6 % Normal 0.0-2.0 [facility] Comment on above: Order Comment: Order Added by Frankie Expert. Performed By: #### 2 814472, 2912225, 3268304, 72564768, 1913156, 1986681, 0486640 ####[facility] [address] [place] [address] Basophils/Leukocytes Auto (Bld) [Pure # fraction] 0.0 E9/L Normal 0.0-0.2 [facility] Comment on above: Order Comment: Order Added by Discern Expert. Performed By: #### 2 924225, 4938690, 5897154, 75799285, 5070668, 1039613, 4506386 ####[facility] [address] [place] [address] Eosinophils/100 WBC (Bld) 6.7 % Normal 0.0-8.0 [facility] Comment on above: Order Comment: Order Added by Frankie Expert. Performed By: #### 2 856894, 3572190, 9057760, 89200127, 3577061, 1041325, 1599878 ####[address] [place] [address] Eosinophils/Leukocyte s Auto (Bld) [Pure # fraction] 0.4 E9/L Normal 0.0-0.5 [facility] Comment on above: Order Comment: Order Added by Discern Expert. Performed By: #### 2 669454, 6353935, 8993065, 84878980, 7513519, 1213715, 4127256 ####[address] [place] [address] Lymphocytes/100 WBC (Bld) 29.2 % Normal 14.0-50.0 [facility] Comment on above: Order Comment: Order Added by Discern Expert. Performed By: #### 2 088354, 1490886, 5436335, 94687183, 2450010, 9569770, 9055491 ####[address] [address] Lymphocytes/Leukocyte s Auto (Bld) [Pure # fraction] 2.0 E9/L Normal 1.0-4.0 [facility] Comment on above: Order Comment: Order Added by Discern Expert. Performed By: #### 2 115010, 6948772, 6421637, 34509735, 5527118, 9739476, 2680293 ####[address] [place] [address] Monocytes/100 WBC (Bld) 9.4 % Normal 4.0-14.0 [facility] Comment on above: Order Comment: Order Added by Discern Expert. Performed By: #### 2 458264, 3490447, 3063323, 68857882, 2083204, 9594434, 8317084 ####[address] [place] [address] Monocytes/Leukocytes Auto (Bld) [Pure # fraction] 0.6 E9/L Normal 0.2-1.0 [facility] Comment on above: Order Comment: Order Added by Discern Expert. Performed By: #### 2 307448, 2515891, 4487101, 67930051, 2276096, 5474324, 7263681 ####[facility] [address] [place] [address] Neutrophils/100 WBC (Bld) 54.1 % Normal 36.0-75.0 [facility] Comment on above: Order Comment: Order Added by Discern Expert. Performed By: #### 2 444974, 8857911, 6448097, 27268472, 5681683, 4324819, 6659595 ####[facility] [address] [place] [address] Neutrophils/Leukocyte s Auto (Bld) [Pure # fraction] 3.6 E9/L Normal 2.0-7.5 [facility] Comment on above: Order Comment: Order Added by Discern Expert. Performed By: #### 2 917946, 2877357, 4309270, 17949170, 5787552, 4124447, 3622165 ####[facility] [address] [place] [address] BMPon 06-20-2022 Anion gap [Moles/Vol] 11 mmol/L Normal 6-16 [facility] Comment on above: Performed By: #### 2 724556, 1690203, 3577530, 42975239, 5538287, 8251881, 8927599 ####[address] [place] [address] Calcium [Mass/Vol] 8.5 mg/dL Low 8.9-11.1 [facility] Comment on above: Performed By: #### 2 287544, 7015984, 8160224, 98237000, 1856451, 4789201, 5906089 ####[facility] [address] [place] [address] Chloride [Moles/Vol] 101 mmol/L Normal 101-111 [facility] Comment on above: Performed By: #### 2 560396, 0713054, 9888118, 16991294, 8562848, 8899521, 3091171 ####[facility] [address] [place] [address] CO2 [Moles/Vol] 26 mmol/L Normal 21-31 [facility] Comment on above: Performed By: #### 2 674416, 6636650, 5001804, 95924188, 4096601, 9680215, 2240573 ####[facility] [address] [place] [address] Creatinine [Mass/Vol] 1.1 mg/dL Normal 0.5-1.3 [facility] Comment on above: Performed By: #### 2 440429, 4429380, 2206025, 32592273, 0633766, 0161459, 4178254 ####[facility] [address] [place] [address] Glucose [Mass/Vol] 221 mg/dL High 55-199 [facility] Comment on above: Result Comment: If t his glucose result represents a fasting glucose, interpretation should refer to the following reference range: 55-99 mg/dL Performed By: #### 2 175411, 7347120, 6737738, 08406005, 0079132, 0668345, 0207194 ####[facility] [address] [place] [address] Potassium [Moles/Vol] 3.8 mmol/L Normal 3.5-5.3 [facility] Comment on above: Performed By: #### 2 171948, 6307678, 0234419, 51906694, 1300062, 8404314, 7839951 ####[facility] [address] [place] [address] Sodium [Moles/Vol] 134 mmol/L Low 135-145 [facility] Comment on above: Performed By: #### 2 727952, 5725442, 4299239, 28373777, 2921423, 9574918, 0281481 ####[facility] [address] [place] [address] Urea nitrogen [Mass/Vol] 26 mg/dL High 5-21 [facility] Comment on above: Performed By: #### 2 203195, 1568542, 8936953, 29356783, 9058178, 4592235, 8637527 ####[facility] [address] [place] [address] Urea nitrogen/Creatinine [Mass ratio] 24 No Units High 10-20 [facility] Comment on above: Performed By: #### 2 492556, 0905756, 9661735, 33568415, 3756612, 0718811, 5568688 ####[address] [place] [address] CBC w/ Auto Diffon Erythrocyte distribution width (RBC) [Ratio] 16.5 % High 10.9-14.2 [facility] Comment on above: Performed By: #### 2 124355, 4040475, 9975744, 45254863, 6637427, 2815882, 8629924 ####[address] [address] Hematocrit (Bld) [Volume fraction] 31.6 % Low 37.7-49.0 [facility] Comment on above: Performed By: #### 2 002276, 1381933, 1660373, 18034064, 2659201, 0128384, 1025098 ####[address] [address] Hemoglobin (Bld) [Mass/Vol] 9.9 g/dL Low 13.5-17.5 [facility] Comment on above: Performed By: #### 2 998872, 6286631, 0179498, 57775388, 4818428, 8095044, 5803156 ####[address] [place] [address] MCH (RBC) [Entitic mass] 25.6 pg Low 27.0-34.0 [facility] Comment on above: Performed By: #### 2 300642, 5779571, 6694401, 70018600, 6909867, 1248107, 1691369 ####[address] [place] [address] MCHC (RBC) [Mass/Vol] 31.5 g/dL Normal 31.4-36.0 [facility] Comment on above: Performed By: #### 2 111068, 7804326, 0580588, 43021609, 9923026, 9696550, 2088342 ####[facility] [address] MCV (RBC) [Entitic vol] 81.4 fL Normal 80.0-100.0 [facility] Comment on above: Performed By: #### 2 616012, 8913674, 4326044, 72176537, 6239541, 5011411, 9566336 ####[address] Platelet mean volume (Bld) [Entitic vol] 8.8 fL Normal 6.4-10.8 [facility] Comment on above: Performed By: #### 2 269143, 8642788, 1309101, 09944137, 1241319, 5730265, 5783689 ####[facility] [address] [place], [place] [address] Platelets (Bld) [#/Vol] 216.0 E9/L Normal 150.0-500.0 [facility] Comment on above: Performed By: #### 2 528035, 9291678, 2347094, 71335571, 5190447, 5551143, 7214148 ####[facility] [address] [place], [place] [address] RBC (Bld) [#/Vol] 3.9 E12/L Low 4.3-5.9 [facility] Comment on above: Performed By: #### 2 084271, 1245019, 5804848, 21280487, 5164542, 5050969, 9380537 ####[facility] [address] [place], [place] [address] WBC corrected for nucl RBC Auto (Bld) [#/Vol] 6.7 E9/L Normal 4.0-11.0 [facility] Comment on above: Performed By: #### 2 873301, 2624958, 9597387, 04134934, 4622244, 3786760, 8012547 ####[facility] [address] [place] [address] CHEMISTRYOrdered By: SYSTEM SYSTEM on 06-20-2022 Vancomycin trough [Moles/Vol] 19 microgram/mL Normal 10 - 20 mcg/mL [facility] Remisol Magnesium [Mass/Vol] 1.9 mg/dL Normal 1.3 - 2 .4 mg/dL [facility] Remisol Phosphate [Mass/Vol] 4.1 mg/dL Normal 1.9 - 4 .6 mg/dL [facility] Remisol Vancomycin peak [Moles/Vol] 39 microgram/mL Normal 20 - 40 mcg/mL FT Remisol Capillary Glucose POCon 06-11 Glucose [Mass/Vol] 249 mg/dL High 55-99 [facility] Comment on above: Result Comment: Mary COLLAZO Performed By: #### 2 74951660 ####[facility] [address] [place] [address] Glucose [Mass/Vol] 219 mg/dL High 55-99 [facility] Comment on above: Result Comment: Mary COLLAZO Performed By: #### 2 68312976 ####[facility] [address] [place] [address] Glucose [Mass/Vol] 226 mg/dL High 55-[address] [place] [address] Comment on above: Result Comment: Katty todd Meter Performed By: #### 2 05147060 ####[facility] [address] [place] [address] Glucose [Mass/Vol] 227 mg/dL High 55-99 [facility] Comment on above: Result Comment: Mary COLLAZO Performed By: #### 2 45915850 ####[facility] [address] [place] [address] Glucose [Mass/Vol] 193 mg/dL High 55-99 [facility] Comment on above: Result Comment: Mary COLLAZO Performed By: #### 2 57761390 ####[facility] [address] [place] [address] Consent for Procedure/Surger yon 06-20-2022 Consent for Procedure/Surgery [id number]#1.00CD:127 Normal [facility] Consultation Noteon 06-20-19 Consultation Note Normal [facility] Comment on above: Result Comment: Elec tronically Signed By: Ronaldo Arcos M.D\.br\Date and Time Signed: 06/20/22 09:33 EST ED Note-Physicianon 06-20-19 ED Note-Physician Normal [facility] Comment on above: Result Comment: Elec tronically Signed By: Jabier Martin PA-C\.br\Date and Time Signed: 06/18/22 20:25 EST\.br\Electronically Co-Signed By: Dennys Merida, Lucia Gavin\.br\Date and Time Co-Signed: 06/20/22 09:51 EST HEMATOLOGYOrdered By: Franci Lane on 06-20-2022 Hematocrit (Bld) [Volume fraction] 33.3 % Low 37.7 - 49.0 % [facility] HemeAutoSS Hemoglobin (Bld) [Mass/Vol] 10.6 g/dL Low 13.5 - 17.5 gm/dL [facility] HemeAutoSS Erythrocyte distribution width (RBC) [Ratio] 16.5 % High 10.9 - 14.2 % [facility] HemeAutoSS MCH (RBC) [Entitic mass] 25.6 pg Low 27.0 - 34.0 pg [facility] HemeAutoSS MCHC (RBC) [Mass/Vol] 31.5 g/dL Normal 31.4 - 36.0 gm/dL [facility] HemeAutoSS MCV (RBC) [Entitic vol] 81.4 fL Normal 80.0 - 100.0 fL [facility] HemeAutoSS Platelet mean volume (Bld) [Entitic vol] 8.8 fL Normal 6.4 - 10.8 fL [facility] HemeAutoSS Platelets (Bld) [#/Vol] 216.0 E9/L Normal 150.0 - 500.0 E9/L [facility] HemeAutoSS RBC (Bld) [#/Vol] 3.9 E12/L Low 4.3 - 5.9 E12/L [facility] HemeAutoSS WBC corrected for nucl RBC Auto (Bld) [#/Vol] 6.7 E9/L Normal 4.0 - 11.0 E9/L [facility] HemeAutoSS HEMATOLOGYOrdered By: SYSTEM SYSTEM on 06-20-2022 Basophils/100 WBC (Bld) 0.6 % Normal 0.0 - 2.0 % [facility] HemeAutoSS Basophils/Leukocytes Auto (Bld) [Pure # fraction] 0.0 E9/L Normal 0.0 - 0.2 E9/L [facility] HemeAutoSS Eosinophils/100 WBC (Bld) 6.7 % Normal 0.0 - 8.0 % [facility] HemeAutoSS Eosinophils/Leukocyte s Auto (Bld) [Pure # fraction] 0.4 E9/L Normal 0.0 - 0.5 E9/L [facility] HemeAutoSS Lymphocytes/100 WBC (Bld) 29.2 % Normal 14.0 - 50.0 % [facility] HemeAutoSS Lymphocytes/Leukocyte s Auto (Bld) [Pure # fraction] 2.0 E9/L Normal 1.0 - 4.0 E9/L [facility] HemeAutoSS Monocytes/100 WBC (Bld) 9.4 % Normal 4.0 - 14.0 % [facility] HemeAutoSS Monocytes/Leukocytes Auto (Bld) [Pure # fraction] 0.6 E9/L Normal 0.2 - 1.0 E9/L [facility] HemeAutoSS Neutrophils/100 WBC (Bld) 54.1 % Normal 36.0 - 75.0 % [facility] HemeAutoSS Neutrophils/Leukocyte s Auto (Bld) [Pure # fraction] 3.6 E9/L Normal 2.0 - 7.5 E9/L [facility] HemeAutoSS Hct & Hgbon 06-20-2022 Hematocrit (Bld) [Volume fraction] 33.3 % Low 37.7-49.0 [facility] Comment on above: Order Comment: Patie nt not in room, Patient is in surgery. [id number] 06/20/2022 15:56:39 EST Performed By: #### 1 6197033 ####[facility] [address] [place] [address] Hemoglobin (Bld) [Mass/Vol] 10.6 g/dL Low 13.5-17.5 [facility] Comment on above: Order Comment: Patie nt not in room, Patient is in surgery. [id number] 06/20/2022 15:56:39 EST Performed By: #### 1 4480797 ####[facility] [address] [place] [address] Interdisciplinary Note - Virgil e Manageron 06-20-2022 Interdisciplinary Note - Pharmacy Analyst Normal [facility] Comment on above: Result Comment: Elec tronically Signed By: Parish HERBERT, Nathan\.br\Date and Time Signed: 06/20/22 12:18 EST LINEZOLID:SUSC:PT:ISOLATE:OR DQN:MICOrdered By: Margret Ambriz on 06-20-2022 Linezolid ERYN [Susc] Scant growth of Staphylococcus simulans Scant growth of Gram Positive Rods resembling diphtheroids [facility] Linezolid ERYN [Susc]Ordered By: Margret Ambriz on 06-20-2022 GS Rare White Blood Hortencia ls No organisms seen. [facility] Staphylococcus simulans Staphylococcus simulans [facility] Magnesiumon 06-20-2022 Magnesium [Mass/Vol] 1.9 mg/dL Normal 1.3-2.4 [facility] Comment on above: Performed By: #### 2 981096, 4965528, 3142758, 87605244, 6674980, 9604317, 9532450 ####[facility] [address] [place] [address] Main OR Preoperative Recordo n 06-20-2022 Main OR Preoperative Record Normal [facility] Monitor Recordon 06-20-2022 Monitor Record [id number]#1.00CD:127 Normal [facility] Monitor Record [id number]#1.00CD:127 Normal [facility] Monitor Record [id number]#1.00CD:127 Normal [facility] Monitor Record [id number]#1.00CD:127 Normal [facility] Operative Reporton 3 Operative Report Normal [facility] Comment on above: Result Comment: Elec tronically Signed By: Santos Epperson DPM\Date and Time Signed: 06/20/22 15:49 EST PTTon 06-20-2022 aPTT Coag (PPP) [Time] 34.2 second(s) Normal 25.1-36.5 [facility] Comment on above: Result Comment: Para meter 15 days - 4 weeks 1 - 5 months 6 - 11 months 1 - 5 years 6 - 10 years 11 - 17 years PTT Mean: 35.4 (27.6-45.6) Mean: 33.5 (24.8-40.7) Mean: 32.4 (25.1-40.7) Mean: 31.6 (24.0-39.2) Mean: 31.6 (26.9-38.7) Mean: 31.0 (24.6-38.4) Pediatric Reference ranges were obtained from a study by Jose Juan Olguin et al. prepared from 1437 samples obtained at 7 different centers using the same coagulation reagent and instrumentation as [facility]. Currently there are no coagulation studies available worldwide for children to 14 days, and no normal ranges. Heparin therapeutic range (represented by Anti-Factor Xa activity of 0.2 - 0.4 U/mL) corresponds to PTT of 56.6 - 109.0 sec. Performed By: #### 2 210288 ####[facility] [address] [place] [address] Phosphoruson 06-20-2022 Phosphate [Mass/Vol] 4.1 mg/dL Normal 1.9-4.6 [facility] Comment on above: Performed By: #### 2 569197, 9339035, 0659298, 20253834, 0384767, 4648121, 5279271 ####[facility] [address] [place] [address] Progress Note - Pharmacyon 0 06-20-2022 Progress Note - Pharmacy Normal [facility] Progress Note-Nurseon 2022 Progress Note-Nurse 06/20/2022 0117 Heparin gtt was turned off at 0117. Normal [facility] Progress Note-Physicianon Progress Note-Physician Normal [facility] Comment on above: Result Comment: Elec tronically Signed By: Irineo Gonzalez Jr., DO\.br\Date and Time Signed: 06/20/22 16:58 EST Progress Note-Physician Normal [facility] Comment on above: Result Comment: Elec tronically Signed By: Irineo Gonzalez Jr., DO\.br\Date and Time Signed: 06/20/22 13:20 EST Progress Note-Physician Normal [facility] Comment on above: Result Comment: Elec tronically Signed By: Chaitanya Austin MD\.br\Date and Time Signed: 06/20/22 11:54 EST Progress Note-Physician Normal [facility] Comment on above: Result Comment: Elec tronically Signed By: Chaitanya Austin MD\.br\Date and Time Signed: 06/20/22 07:24 EST Vanco Peakon 06-20-2022 VANCOMYCIN 39 microgram/mL Normal 20-40 [facility] Comment on above: Order Comment: Pleas e drawn Vancomycin Peak 1 hour after the completion of the 0300 dose on 06/20/22. Thank you.Per MIKE Preciado dose supposed to start at 0300 and takes 90 mins. Draw between 4860-8017...mmf 06/20/2022 02:23:17 EST Performed By: #### 2 479285, 6791368, 4613558, 72005041, 1075166, 5244241, 5239083 ####[facility] [address] [place] [address] Vanco Troughon 06-20-2022 VANCOMYCIN 19 microgram/mL Normal 10-20 [facility] Comment on above: Order Comment: NOTE: Trough is scheduled 1 hour prior to next dose. Thank you.Pt is in surgery. [id number] 06/20/2022 13:53:46 ESTPt still in surgery. [id number] 06/20/2022 14:53:24 EST Performed By: #### 2 176833 ####[facility] [address] [place] [address] eGFRon 06-20-2022 GFR/1.73 sq M.predicted among blacks MDRD (S/P/Bld) [Vol rate/Area] mL/min/{1.73_m2} Normal >=59 [facility] Comment on above: Order Comment: Order added by Discern Expert. Result Comment: eGFR is race adjusted. AA=. Performed By: #### 2 274610, 4061472, 2018199, 44083124, 8501219, 9115478, 4332842 ####[facility] [address] [place] [address] GFR/1.73 sq M.predicted among non-blacks MDRD (S/P/Bld) [Vol rate/Area] mL/min/{1.73_m2} Normal >=59 [facility] Comment on above: Order Comment: Order added by Discern Expert. Result Comment: Choral Director claus kidney disease could be indicated at eGFR's of less than 60 mL/min/1.73m2. Kidney failure is indicated at less than 15 mL/min/1.73m2. Performed By: #### 2 028418, 8806017, 9601715, 79071363, 7718307, 2750707, 1574244 ####[facility] [address] [place] [address] BMPon 06-19-2022 Anion gap [Moles/Vol] 9 mmol/L Normal 6-16 [facility] Comment on above: Performed By: #### 2 135549, 31512082, 4421749 ####[facility] [address] [place] [address] Calcium [Mass/Vol] 8.7 mg/dL Low 8.9-11.1 [facility] Comment on above: Performed By: #### 2 778722, 61312385, 2123732 ####[facility] [address] [place] [address] Chloride [Moles/Vol] 103 mmol/L Normal 101-111 [facility] Comment on above: Performed By: #### 2 813541, 10131576, 4921832 ####[facility] [address] [place] [address] CO2 [Moles/Vol] 26 mmol/L Normal 21-31 [facility] Comment on above: Performed By: #### 2 588582, 10720391, 5309246 ####[facility] [address] [place] [address] Creatinine [Mass/Vol] 0.9 mg/dL Normal 0.5-1.3 [facility] Comment on above: Performed By: #### 2 938133, 59537578, 6306210 ####[facility] [address] [facility] [address] Glucose [Mass/Vol] 205 mg/dL High 55-199 [facility] Comment on above: Result Comment: If t his glucose result represents a fasting glucose, interpretation should refer to the following reference range: 55-99 mg/dL Performed By: #### 2 234607, 41055719, 8553529 ####[facility] [address] [facility] [address] Potassium [Moles/Vol] 4.2 mmol/L Normal 3.5-5.3 [facility] Comment on above: Performed By: #### 2 936627, 37655569, 2558965 ####[facility] [address] [facility] [place] [address] Sodium [Moles/Vol] 134 mmol/L Low 135-145 [facility] Comment on above: Performed By: #### 2 270099, 53712901, 4530042 ####[facility] [address] [facility] [address] Urea nitrogen [Mass/Vol] 21 mg/dL Normal 5-21 [facility] Comment on above: Performed By: #### 2 560234, 50117624, 2433539 ####[facility] [address] [place] [facility] [place] [address] Urea nitrogen/Creatinine [Mass ratio] 23 No Units High 10-20 [facility] Comment on above: Performed By: #### 2 549370, 37931006, 1347102 ####[facility] [address] [place] [address] CHEMISTRYOrdered By: SYSTEM SYSTEM on 06-19-2022 Magnesium [Mass/Vol] 2.3 mg/dL Normal 1.3 - 2 .4 mg/dL [facility] Remisol COAGULATIONOrdered By: Tomy Medrano on 06-19-2022 aPTT Coag (PPP) [Time] 34.2 s Normal 25.1 - 36.5 second(s) [facility] Auto Coag Capillary Glucose POCon Glucose [Mass/Vol] 244 mg/dL High 55-99 [facility] Comment on above: Result Comment: Mary COLLAZO Performed By: #### 2 19247941 ####[facility] [address] [place] [address] Glucose [Mass/Vol] 251 mg/dL High 55-99 [facility] Comment on above: Result Comment: Mary COLLAZO Performed By: #### 2 32266960 ####[facility] [address] [place] [address] Glucose [Mass/Vol] 241 mg/dL High 55-99 [facility] Comment on above: Result Comment: Mary COLLAZO Performed By: #### 2 05423241 ####[facility] [address] [place] [address] Glucose [Mass/Vol] 188 mg/dL High 55-99 [facility] Comment on above: Result Comment: Mary COLLAZO Performed By: #### 2 70669287 ####[facility] [address] [place] [address] Consultation Noteon 06-19-19 Consultation Note Normal [facility] Comment on above: Result Comment: Elec tronically Signed By: Santos Epperson DPM\Date and Time Signed: 06/19/22 08:34 EST Interdisciplinary Note - Virgil e Manageron 06-19-2022 Interdisciplinary Note - Pharmacy Analyst Normal [facility] Comment on above: Result Comment: Elec tronically Signed By: Parish HERBERT, Nathan\.domenic\Date and Time Signed: 06/19/22 10:02 EST Interdisciplinary Note - PTo n 06-19-2022 Interdisciplinary Note - PT Order received and chart reviewed. Will Hold PT services as pt scheduled to have surgery this Thursday. Will hold and attempt after surgery Normal [facility] Interdisciplinary Note - PT Order received and chart reviewed. Will Hold PT services as pt scheduled to have surgery this Thursday. Will hold and attempt after surgery Normal [facility] Magnesiumon 06-19-2022 Magnesium [Mass/Vol] 2.3 mg/dL Normal 1.3-2.4 [facility] Comment on above: Performed By: #### 2 666297, 41648167, 1260731 ####[facility] [address] [place] [address] Message from Medicareon Message from Medicare [id number]#1.00CD:127 Normal [facility] Monitor Recordon 06-19-2022 Monitor Record [id number]#1.00CD:127 Normal [facility] Monitor Record [id number]#1.00CD:127 [facility] Monitor Record [id number]#1.00CD:127 Normal [facility] Monitor Record [id number]#1.00CD:127 Normal [facility] Nursing Assessment - Woundon 06-19-2022 Nursing Assessment - Wound [id number]#1.00CD:127 Normal [facility] Nursing Note - Woundon 06-19 Nursing Note - Wound [id number]#1.00CD:127 Normal [facility] eGFRon 06-19-2022 GFR/1.73 sq M.predicted among blacks MDRD (S/P/Bld) [Vol rate/Area] mL/min/{1.73_m2} Normal >=59 [facility] Comment on above: Order Comment: Order added by Discern Expert. Result Comment: eGFR is race adjusted. AA=. Performed By: #### 2 109870, 15063831, 6969237 ####[facility] [address] [place] [address] GFR/1.73 sq M.predicted among non-blacks MDRD (S/P/Bld) [Vol rate/Area] mL/min/{1.73_m2} Normal >=59 [facility] Comment on above: Order Comment: Order added by Discern Expert. Result Comment: Choral Director claus kidney disease could be indicated at eGFR's of less than 60 mL/min/1.73m2. Kidney failure is indicated at less than 15 mL/min/1.73m2. Performed By: #### 2 378344, 09571320, 5180980 ####[facility] [address] [place] [address] Auto Diffon 06-18-2022 Basophils/100 WBC (Bld) 0.6 % Normal 0.0-2.0 [facility] Comment on above: Order Comment: Order Added by Discern Expert. Performed By: #### 2 211785, 7204810, 9517445, 0568797, 32264871, 77859971, 0333567, 74790599, 66140759, 5290695, 6023805 ####[facility] [address] [place] [address] Basophils/Leukocytes Auto (Bld) [Pure # fraction] 0.1 E9/L Normal 0.0-0.2 [facility] Comment on above: Order Comment: Order Added by Discern Expert. Performed By: #### 2 862468, 2225072, 4844850, 0209921, 96865347, 96631220, 4348382, 10509213, 08476784, 9193334, 4651540 ####[facility] [address] [place] [address] Eosinophils/100 WBC (Bld) 2.2 % Normal 0.0-8.0 [facility] Comment on above: Order Comment: Order Added by Discern Expert. Performed By: #### 2 795586, 5882446, 2809116, 7231305, 56522237, 35668790, 8163184, 02617068, 06589634, 5950002, 6399315 ####[facility] [address] [place] [address] Eosinophils/Leukocyte s Auto (Bld) [Pure # fraction] 0.2 E9/L Normal 0.0-0.5 [facility] Comment on above: Order Comment: Order Added by Discern Expert. Performed By: #### 2 062280, 5398478, 9655192, 0611369, 61194730, 47101825, 3738172, 38748306, 50012174, 9416602, 8866995 ####[address] [place] [address] Lymphocytes/100 WBC (Bld) 17.7 % Normal 14.0-50.0 [facility] Comment on above: Order Comment: Order Added by Discern Expert. Performed By: #### 2 513112, 8511717, 7215487, 5011556, 56773383, 79691488, 3640819, 63073621, 90990431, 0419589, 4586532 ####[address] [place] [address] Lymphocytes/Leukocyte s Auto (Bld) [Pure # fraction] 1.6 E9/L Normal 1.0-4.0 [facility] Comment on above: Order Comment: Order Added by Discern Expert. Performed By: #### 2 688034, 0112180, 1416747, 3201732, 23604200, 81031149, 3197642, 28820851, 50517471, 5054676, 8688183 ####[address] [place] [address] Monocytes/100 WBC (Bld) 8.3 % Normal 4.0-14.0 [facility] Comment on above: Order Comment: Order Added by Discern Expert. Performed By: #### 2 716936, 9755226, 2277778, 7410640, 05136325, 70934401, 2107616, 31366781, 52750087, 4508399, 6777287 ####[facility] [address] [place] [address] Monocytes/Leukocytes Auto (Bld) [Pure # fraction] 0.7 E9/L Normal 0.2-1.0 [facility] Comment on above: Order Comment: Order Added by Discern Expert. Performed By: #### 2 819177, 2447034, 2565791, 8218423, 14676299, 12894099, 9211341, 58324070, 94857583, 8004830, 1448838 ####[facility] [address] [place] [address] Neutrophils/100 WBC (Bld) 71.2 % Normal 36.0-75.0 [facility] Comment on above: Order Comment: Order Added by Discern Expert. Performed By: #### 2 025949, 4078086, 6932446, 6756886, 80835323, 66186768, 4273200, 26969642, 21829026, 8737834, 6763619 ####[facility] [address] [place] [address] Neutrophils/Leukocyte s Auto (Bld) [Pure # fraction] 6.4 E9/L Normal 2.0-7.5 [facility] Comment on above: Order Comment: Order Added by Discern Expert. Performed By: #### 2 702391, 6217555, 4978464, 7781764, 28153289, 23917148, 2157139, 25579700, 85785729, 4336275, 3732357 ####[facility] [address] [place] [address] CBC w/ Auto Diffon 3 Erythrocyte distribution width (RBC) [Ratio] 16.7 % High 10.9-14.2 [facility] Comment on above: Performed By: #### 2 738594, 5110149, 2270277, 2074995, 93290532, 57716615, 6909315, 70102792, 12639404, 4195828, 5857443 ####[facility] [address] [place] [address] Hematocrit (Bld) [Volume fraction] 33.9 % Low 37.7-49.0 [facility] Comment on above: Performed By: #### 2 549962, 0351714, 6806470, 0128326, 13936709, 60878787, 7563517, 08648036, 50229523, 1267423, 5501050 ####[facility] [address] [place] [address] Hemoglobin (Bld) [Mass/Vol] 11.0 g/dL Low 13.5-17.5 [facility] Comment on above: Performed By: #### 2 388814, 0493129, 6714648, 9554100, 15987746, 91266579, 7087993, 08844270, 37733404, 0804759, 1396653 ####[facility] [address] [place] [address] MCH (RBC) [Entitic mass] 26.3 pg Low 27.0-34.0 [facility] Comment on above: Performed By: #### 2 264948, 6128024, 5457308, 4201311, 80947031, 88664358, 7900512, 27792775, 34657372, 5003927, 3253365 ####[facility] [address] [place] [address] MCHC (RBC) [Mass/Vol] 32.3 g/dL Normal 31.4-36.0 [facility] Comment on above: Performed By: #### 2 814649, 6899878, 2346205, 2620252, 85670947, 02438786, 0263039, 35524055, 92344638, 1608982, 1516894 ####[address] [place] [address] MCV (RBC) [Entitic vol] 81.5 fL Normal 80.0-100.0 [facility] Comment on above: Performed By: #### 2 632071, 2713905, 5087125, 3072929, 11112125, 30504382, 6554983, 01644794, 99604561, 2849935, 0879778 ####[id number] Platelet mean volume (Bld) [Entitic vol] 9.2 fL Normal 6.4-10.8 [facility] Comment on above: Performed By: #### 2 837391, 7567773, 3754169, 9068580, 31506401, 42076859, 3414170, 90470886, 30071151, 8453270, 2474735 ####[id number] Platelets (Bld) [#/Vol] 209.0 E9/L Normal 150.0-500.0 [facility] Comment on above: Performed By: #### 2 598934, 8819502, 3452731, 3683425, 69594433, 99928079, 1581213, 77676712, 00177613, 7593318, 9481828 ####[address] [address] RBC (Bld) [#/Vol] 4.2 E12/L Low 4.3-5.9 [facility] Comment on above: Performed By: #### 2 639326, 2379712, 3741649, 4323421, 32822910, 55740303, 4348655, 24570378, 72115029, 2828762, 2367494 ####[address] [place] [address] WBC corrected for nucl RBC Auto (Bld) [#/Vol] 8.9 E9/L Normal 4.0-11.0 [facility] Comment on above: Performed By: #### 2 183869, 0281081, 4476477, 8076674, 60942274, 90591394, 2789343, 70223186, 15412762, 8901946, 4054451 ####[facility] [address] [place] [address] CHEMISTRYOrdered By: SYSTEM SYSTEM on 06-18-2022 Lactate [Mass/Vol] 1.3 mmol/L Normal 0.5 - 2.2 mmol/L [facility] Remisol Albumin [Mass/Vol] 3.1 g/dL Low 3.3 - 5.0 gm/dL [facility] Remisol Albumin/Globulin [Mass ratio] 0.7 {ratio} Low 1.1 - 2.2 [facility] Remisol ALP [Catalytic activity/Vol] 59 [iU]/d Normal 21 - 98 Int._Unit/L [facility] Remisol ALT No additional P-5'-P [Catalytic activity/Vol] 14 [iU]/d Normal 6 - 46 Int._Unit/L [facility] Remisol AST [Catalytic activity/Vol] 17 [iU]/d Normal 5 - 43 Int._Unit/L [facility] Remisol Bilirubin [Mass/Vol] 0.6 mg/dL Normal 0.0 - 1 .1 mg/dL [facility] Remisol Ferritin [Mass/Vol] 21 ng/mL Low 24 - 336 ng/mL [facility] Remisol Globulin (S) [Mass/Vol] 4.2 g/dL High 1.4 - 4.0 gm/dL [facility] Remisol Iron [Mass/Vol] 28 ug/dL Low 35 - 153 mcg/dL [facility] Remisol Iron binding capacity [Mass/Vol] 296 ug/dL Normal 250 - 400 mcg/dL [facility] Remisol Lactate [Mass/Vol] 1.7 mmol/L Normal 0.5 - 2.2 mmol/L [facility] Remisol Protein [Mass/Vol] 7.3 g/dL Normal 6.0 - 7.8 gm/dL [facility] Remisol Transferrin [Mass/Vol] 211 mg/dL Normal 200 - 370 mg/dL [facility] Remisol Troponin I.cardiac [Mass/Vol] 3.20 pg/mL Low 15.90 - 38.40 pg/mL [facility] Remisol CMPon 06-18-2022 Albumin [Mass/Vol] 3.1 g/dL Low 3.3-5.0 [facility] Comment on above: Performed By: #### 2 554254, 3036507, 9260044, 6373375, 44762216, 20079392, 9536977, 60395380, 59524849, 9770282, 6448331 ####[facility] [address] [place] [address] Albumin/Globulin (S) [Mass conc ratio] 0.7 Low 1.1-2.2 [facility] Comment on above: Performed By: #### 2 613035, 9166978, 2854301, 1349708, 62799836, 30416522, 3747558, 71240967, 42763198, 7900007, 7109461 ####[address] [place] [address] ALP [Catalytic activity/Vol] 59 Int._Unit/L Normal 21-98 [facility] Comment on above: Performed By: #### 2 620300, 4779448, 0491970, 0062450, 51692524, 11072077, 9885676, 10512558, 54705287, 1372895, 4965502 ####[facility] [address] [place] [address] ALT No additional P-5'-P [Catalytic activity/Vol] 14 Int._Unit/L Normal 6-46 [facility] Comment on above: Performed By: #### 2 792623, 5219611, 9993494, 5725032, 50925744, 13560081, 9947184, 37891812, 78390699, 5426671, 0763830 ####[facility] [address] [place] [address] AST [Catalytic activity/Vol] 17 Int._Unit/L Normal 5-43 [facility] Comment on above: Performed By: #### 2 538218, 6417880, 8560499, 0739303, 46602910, 48125661, 2965366, 95883229, 52953077, 8634567, 8663623 ####[facility] [address] [place] [address] Bilirubin [Mass/Vol] 0.6 mg/dL Normal 0.0-1.1 [facility] Comment on above: Performed By: #### 2 410951, 2129772, 1249347, 9693201, 95007689, 41568472, 6377029, 80561990, 26956298, 8675907, 6933111 ####[facility] [address] [place] [address] Creatinine [Mass/Vol] 0.9 mg/dL Normal 0.5-1.3 [facility] Comment on above: Performed By: #### 2 744430, 8548200, 4063867, 6466972, 44492604, 23737625, 2719558, 84890194, 02325506, 0092889, 9314920 ####[facility] [address] [place] [address] Globulin (S) [Mass/Vol] 4.2 g/dL High 1.4-4.0 [facility] Comment on above: Performed By: #### 2 681568, 5540446, 0615350, 0646974, 45881556, 47409200, 7669321, 78290144, 48322048, 0829712, 4379880 ####[facility] [address] [place] [address] Protein [Mass/Vol] 7.3 g/dL Normal 6.0-7.8 [facility] Comment on above: Performed By: #### 2 280590, 5445313, 1182591, 9957326, 85848842, 92453910, 2129605, 51340673, 53795090, 5813969, 0854792 ####[facility] [address] [place] [address] Urea nitrogen [Mass/Vol] 25 mg/dL High 5-21 [facility] Comment on above: Performed By: #### 2 580602, 3713988, 0947098, 9954542, 23930464, 91458337, 8938677, 48830301, 04472035, 8276441, 7341298 ####[facility] [address] [place] [address] Urea nitrogen/Creatinine [Mass ratio] 28 No Units High 10-20 [facility] Comment on above: Performed By: #### 2 619486, 0594509, 2540358, 0539176, 56839570, 87077248, 6723743, 12425462, 74748751, 6058217, 0484360 ####[facility] [address] [place] [address] Anion gap [Moles/Vol] 12 mmol/L Normal 6-16 [facility] Comment on above: Performed By: #### 2 854070, 1829066, 3647901, 3103116, 50584695, 71004838, 9446241, 30427749, 76599250, 1859340, 3837350 ####[facility] [address] [place] [address] Calcium [Mass/Vol] 8.7 mg/dL Low 8.9-11.1 [facility] Comment on above: Performed By: #### 2 700061, 4675368, 8586090, 7112728, 06856039, 11288898, 3546739, 81091476, 35885827, 5931610, 1464465 ####[facility] [address] [place] [address] Chloride [Moles/Vol] 98 mmol/L Low 101-111 [facility] Comment on above: Performed By: #### 2 897968, 3715116, 9793645, 8068015, 03097473, 20621397, 2034315, 43001807, 37292525, 8015543, 7186795 ####[facility] [address] [place] [address] CO2 [Moles/Vol] 27 mmol/L Normal 21-31 [facility] Comment on above: Performed By: #### 2 892418, 2009258, 9210720, 8005177, 66823429, 11032962, 4352700, 29748940, 25712649, 4756468, 4980732 ####[facility] [address] [place] [address] Glucose [Mass/Vol] 321 mg/dL High 55-199 [facility] Comment on above: Result Comment: If t his glucose result represents a fasting glucose, interpretation should refer to the following reference range: 55-99 mg/dL Performed By: #### 2 726201, 2452649, 5798760, 0943207, 23833066, 08622695, 6216610, 07034194, 46120078, 9723384, 9715248 ####[facility] [address] [place] [address] Potassium [Moles/Vol] 4.2 mmol/L Normal 3.5-5.3 [facility] Comment on above: Performed By: #### 2 358128, 3265148, 7952728, 2729531, 37361692, 73804813, 3136023, 43661389, 77275355, 0365686, 7126682 ####[facility] [address] [place] [address] Sodium [Moles/Vol] 133 mmol/L Low 135-145 [facility] Comment on above: Performed By: #### 2 158286, 2650526, 3149743, 3041317, 71773294, 80753872, 3941377, 39418665, 39066788, 5370462, 8942856 ####[facility] [address] [place] [address] COAGULATIONOrdered By: Pascale Portillo on 06-18-2022 aPTT Coag (PPP) [Time] 31.3 s Normal 25.1 - 36.5 second(s) [facility] Auto Coag INR Coag (PPP) [Relative time] 1.1 {INR} Invalid Interpretation Code [facility] Auto Coag PT Coag (PPP) [Time] 12.0 s Normal 9.4 - 1 2.5 second(s) [facility] Auto Coag Capillary Glucose POCon Glucose [Mass/Vol] 256 mg/dL High 55-99 [facility] Comment on above: Result Comment: Mary flores RN/ Performed By: #### 2 25462811 ####[facility] [address] [place] [address] Glucose [Mass/Vol] 158 mg/dL High 55-99 [facility] Comment on above: Result Comment: Mary flores RN/ Performed By: #### 2 05452279 ####[facility] [address] [place] [address] Consent for Procedure/Surger yon 06-18-2022 Consent for Procedure/Surgery [id number]#1.00CD:127 Normal [facility] Consent for Treatmenton Consent for Treatment [id number]#1.00CD:127 [facility] Consent for Treatment [id number]#1.00CD:127 [facility] Consent for Treatment [id number]#1.00CD:127 Normal [facility] ED Clinical Summaryon 2022 ED Clinical Summary Normal [facility] ED Note-Nursingon 06-18-2022 ED Note-Nursing Pt to MRI via cart a t this time. Normal [facility] ED Patient Education Noteon 06-18-2022 ED Patient Education Note Normal [facility] ED Patient Summaryon 023 ED Patient Summary Normal [facility] Ferritinon 06-18-2022 Ferritin [Mass/Vol] 21 ng/mL Low 24-336 [facility] Comment on above: Result Comment: NORM ALS MEN <30 YRS 16-132 ng/mL MEN >30 YRS 8-338 ng/mL WOMEN (PREMEN) 6-104 ng/mL WOMEN (POSTMEN) 12-210 ng/mL Performed By: #### 2 796938, 6515672, 7606049, 4234686, 19206844, 00706267, 6778900, 80889901, 35660747, 5441162, 1974917 ####[facility] [address] [place] [address] HEMATOLOGYOrdered By: Alecia Miranda on 06-18-2022 Sed Rate Automated 36 mm/h High 0 - 19 mm/hr [facility] HemeAutoSS Ironon 06-18-2022 Iron [Mass/Vol] 28 microgram/dL Low 35-153 [facility] Comment on above: Performed By: #### 2 714201, 6582690, 1848214, 3691018, 69208476, 40921355, 0249380, 13787926, 27199140, 9536026, 9840159 ####[facility] [address] [place] [address] Lactic Acidon 06-18-2022 Lactate [Mass/Vol] 1.3 mmol/L Normal 0.5-2.2 [facility] Comment on above: Performed By: #### 2 387202 ####[address] [place] [address] Lactate [Mass/Vol] 1.7 mmol/L Normal 0.5-2.2 [facility] Comment on above: Performed By: #### 2 837002, 0662729, 9413156, 6021956, 57012614, 91203129, 6524016, 39065603, 04454439, 5555689, 8505073 ####[address] [place] [address] MRI Foot w/o Contrast Righto n 06-18-2022 MRI Foot w/o Contrast Right Normal [facility] Multi-Wound Charton 06-18-19 23 Multi-Wound Chart [id number]#1.00CD:127 Normal [facility] No Panel InformationOrdered By: [facility] 06-18-2022 Blood Culture Charcoal No growth at 5 days. Final to follow at 7 days. [facility] Blood Culture Charcoal No growth at 5 days. Final to follow at 7 days. [facility] PT & PTTon 06-18-2022 aPTT Coag (PPP) [Time] 31.3 second(s) Normal 25.1-36.5 [facility] Comment on above: Result Comment: Para meter 15 days - 4 weeks 1 - 5 months 6 - 11 months 1 - 5 years 6 - 10 years 11 - 17 years PTT Mean: 35.4 (27.6-45.6) Mean: 33.5 (24.8-40.7) Mean: 32.4 (25.1-40.7) Mean: 31.6 (24.0-39.2) Mean: 31.6 (26.9-38.7) Mean: 31.0 (24.6-38.4) Pediatric Reference ranges were obtained from a study by Jose Juan Olguin et al. prepared from 1437 samples obtained at 7 different centers using the same coagulation reagent and instrumentation as [facility]. Currently there are no coagulation studies available worldwide for children to 14 days, and no normal ranges. Heparin therapeutic range (represented by Anti-Factor Xa activity of 0.2 - 0.4 U/mL) corresponds to PTT of 56.6 - 109.0 sec. Performed By: #### 2 780056, 2096882, 8342928, 6996092, 36160485, 44856349, 0069338, 27321027, 09953492, 0372198, 5950450 ####[facility] [address] [place] [address] INR Coag (PPP) [Relative time] 1.1 {INR} Invalid Interpretation Code [facility] Comment on above: Result Comment: INR results are specifically intended to assess patients stabilized on long-term Anticoagulation therapy suggested INR?s ?Less Intensive Anticoagulation? 2.0 ? 3.0Conventional Range 3.0 ? 4.5 Performed By: #### 2 853613, 4075819, 6887488, 8333056, 07370516, 42178391, 5202216, 46981333, 14221609, 1581941, 9624205 ####[facility] [address] [place] [address] PT Coag (PPP) [Time] 12.0 second(s) Normal 9.4-12.5 [facility] Comment on above: Result Comment: 15 d ays - 4 weeks 1 - 5 months 6 -11 months 1- 5 years 6-10 years 11 -17 years Mean: 11.2 (9.5-12.6) Mean: 11.0 (9.7-12.8) Mean: 11.0 (9.8-13.0) Mean: 11.3 (9.9-13.4) Mean: 11.7 (10.0-14.6) Mean: 11.8 (10.0 - 14.1) Pediatric Reference ranges were obtained from a study by Jose Juan Olguin et al. prepared from 1437 samples obtained at 7 different centers using the same coagulation reagent and instrumentation as [facility]. Currently there are no coagulation studies available worldwide for children to 14 days, and no normal ranges. Performed By: #### 2 387084, 4633091, 3089682, 0343850, 95531784, 02751032, 3077342, 93055171, 04882996, 6339120, 4186493 ####[facility] [address] [place] [address] Physician Orderon 06-18-2022 Physician Order [id number]#1.00CD:127 Normal [facility] Physician Order [id number]#1.00CD:127 Normal [facility] Pre-Arrival Noteon Pre-Arrival Note Normal [facility] Procedure - Woundon 06-18-19 Procedure - Wound [id number]#1.00CD:127 Normal [facility] Progress Note - Pharmacyon 0 06-18-2022 Progress Note - Pharmacy Normal [facility] Progress Note - Woundon 02-0 Progress Note - Wound [id number]#1.00CD:127 Normal [facility] RAD - MRI Screening Formon 0 06-18-2022 RAD - MRI Screening Form [id number]#1.00CD:127 Normal [facility] Sed Rate Automatedon 023 Sed Rate Automated 36 mm/hr High 0-19 [facility] Comment on above: Performed By: #### 2 468300, 9526487, 8548619, 8964778, 77231170, 17864406, 7673498, 41294421, 76741932, 7129108, 0543449 ####[facility] [address] [place] [address] TIBC Calculatedon 06-18-2022 Iron binding capacity [Mass/Vol] 296 microgram/dL Normal 250-400 [facility] Comment on above: Performed By: #### 2 882287, 4173835, 1671310, 4369961, 97985232, 25383001, 9092708, 83449981, 61104446, 7913454, 1624108 ####[facility] [address] [place] [address] Transferrin [Mass/Vol] 211 mg/dL Normal 200-370 [facility] Comment on above: Performed By: #### 2 198255, 9995931, 9443709, 0198599, 05208744, 51477465, 3604606, 27906833, 27543966, 6427613, 0346750 ####[facility] [address] [place] [address] Troponinon 06-18-2022 Troponin I.cardiac [Mass/Vol] 3.20 pg/mL Low 15.90-38.40 [facility] Comment on above: Result Comment: The 95% CI (Confidence Interval) PPV (Positive Predictive Value) for myocardial infarction in females is 38 pg/mL, in males 51 pg/mL. The results should be used in conjunction with clinical conditions of myocardial infarction.(Access High Sensitivity Troponin I Instructions For Use, Frank [place], December 2017) Performed By: #### 2 994269, 8785465, 2799029, 4782297, 32077444, 61826523, 5738936, 30818234, 22039408, 8637337, 7873828 ####[facility] [address] [place] [address] UA With Cult Reflexon 2022 Bilirubin Ql (U) Negative Normal Negative [facility] Comment on above: Performed By: #### 1 4001132 ####[address] [address] Clarity (U) CLEAR Normal Clear [facility] Comment on above: Performed By: #### 1 8090475 ####[address] [address] Color (U) YELLOW Normal Yellow [facility] Comment on above: Performed By: #### 1 5699759 ####[address] [address] Epithelial cells.squamous LM.HPF (Urine sed) [#/Area] 0-2 Normal 0-2 [facility] Comment on above: Performed By: #### 1 8541738 ####[address] [address] Glucose Test strip (U) [Mass/Vol] 3+ Abnormal Negative [facility] Comment on above: Performed By: #### 1 4540214 ####[address] [address] Hemoglobin Ql (U) Negative Normal Negative [facility] Comment on above: Performed By: #### 1 3347114 ####[address] [address] Ketones (U) [Mass/Vol] Negative Normal Negative [facility] Comment on above: Performed By: #### 1 4920319 ####[address] [address] [place].plasma/Lithiu m.RBC (Bld) [Mass ratio] 0-3 Normal 0-3 [facility] Comment on above: Performed By: #### 1 5349461 ####[address] [place] [address] Nitrite Ql (U) Negative Normal Negative [facility] Comment on above: Performed By: #### 1 7039412 ####[place] [address] pH (U) 7.0 [pH] Invalid Interpretation Code 5.0-9.0 [facility] Comment on above: Performed By: #### 1 2252583 ####[place] [address] Protein (U) [Mass/Vol] TRACE Abnormal Negative [facility] Comment on above: Performed By: #### 1 2738905 ####[place] [address] Specific gravity (U) [Rel density] 1.010 Invalid Interpretation Code 1.005-1.030 [facility] Comment on above: Performed By: #### 1 8980573 ####[address] Type of Urine collection method Clean Catch Normal [facility] Comment on above: Performed By: #### 1 4956635 ####[address] [address] Urobilinogen Qn (U) 0.2 {Tu'U}/dL Normal 0.0-1.0 [facility] Comment on above: Performed By: #### 1 9984280 ####[address] [address] WBC Auto Ql (U) Negative Normal Negative [facility] Comment on above: Performed By: #### 1 4758375 ####[address] [address] WBC LM.HPF (Urine sed) [#/Area] 0-5 Normal 0-5 [facility] Comment on above: Performed By: #### 1 4110357 ####[facility] [address] [place] [address] URINALYSISOrdered By: Adri freitas on 06-18-2022 Bilirubin Ql (U) Negative (06/18/22 3:06 PM) Normal Negative [facility] UA Auto SS Clarity (U) Clear (06/18/22 3:06 PM) Normal Clear [facility] UA Auto SS Color (U) Yellow (06/18/22 3:06 PM) Normal Yellow [facility] UA Auto SS Epithelial cells.squamous LM.HPF (Urine sed) [#/Area] 0-2 /HPF Normal 0-2/HPF [facility] UA Auto SS Glucose Test strip (U) [Mass/Vol] 3+ *ABN* (06/18/22 3:06 PM) Invalid Interpretation Code Negative [facility] UA Auto SS Hemoglobin Ql (U) Negative (06/18/22 3:06 PM) Normal Negative [facility] UA Auto SS Ketones (U) [Mass/Vol] Negative (06/18/22 3:06 PM) Normal Negative [facility] UA Auto SS [place].plasma/Lithiu m.RBC (Bld) [Mass ratio] 0-3 /HPF Normal 0-3/HPF [facility] UA Auto SS Nitrite Ql (U) Negative (06/18/22 3:06 PM) Normal Negative [facility] UA Auto SS pH (U) 7.0 *NA* (06/18/22 3:06 PM) Invalid Interpretation Code 5.0 - 9.0 [facility] UA Auto SS Protein (U) [Mass/Vol] Trace *ABN* (06/18/22 3:06 PM) Invalid Interpretation Code Negative [facility] UA Auto SS Specific gravity (U) [Rel density] 1.010 *NA* (06/18/22 3:06 PM) Invalid Interpretation Code 1.005 - 1.030 [facility] UA Auto SS UA Spec Desc Clean Catch (06/18/22 3:06 PM) Normal [facility] UA Auto SS Urobilinogen Qn (U) 0.9161005 {Tu'U}/dL Normal 0.0 - 1.0 EU/dL [facility] UA Auto SS WBC Auto Ql (U) Negative (06/18/22 3:06 PM) Normal Negative [facility] UA Auto SS WBC LM.HPF (Urine sed) [#/Area] 0-5 /HPF Normal 0-5/HPF [facility] UA Auto SS XR Chest Single Viewon 06-18 XR Chest Single View Normal [facility] XR Foot 3+ Views Righton XR Foot 3+ Views Right Normal [facility] eGFRon 06-18-2022 GFR/1.73 sq M.predicted among blacks MDRD (S/P/Bld) [Vol rate/Area] mL/min/{1.73_m2} Normal >=59 [facility] [facility] Comment on above: Order Comment: Order added by Discern Expert. Result Comment: eGFR is race adjusted. AA=. Performed By: #### 2 [id number], [id number], [id number], [id number], [id number], [id number], [id number], [id number] ####[facility] [id number] [place] [address] GFR/1.73 sq M.predicted among non-blacks MDRD (S/P/Bld) [Vol rate/Area] mL/min/{1.73_m2} Normal >=59 [facility] Comment on above: Order Comment: Order added by Discern Expert. Result Comment: Choral Director claus kidney disease could be indicated at eGFR's of less than 60 mL/min/1.73m2. Kidney failure is indicated at less than 15 mL/min/1.73m2. Performed By: #### 2 [id number], [id number], [id number], [id number], [id number], [id number], [id number], [id number], [id number], [id number] ####[facility] [id number] [place] [address] Physician Orderon 06-17-2022 Physician Order [id number] Normal [facility] CHEMISTRYOrdered By: Lab ROP User on 04-18-2022 Glucose [Mass/Vol] 153 mg/dL High 55 - 99 mg/dL [facility] [place] POC Subsection Comment on above: Result Comment: Mary flores RN/ POC Device SN [id number] Invalid Interpretation Code [facility] POC Subsection POC User ID [id number] Invalid Interpretation Code [facility] POC Subsection POC Username EMERITA FAM Invalid Interpretation Code [facility] POC Subsection CHEMISTRYOrdered By: SYSTEM SYSTEM on 04-18-2022 Vancomycin peak [Moles/Vol] 39 microgram/mL Normal 20 - 40 mcg/mL [facility] Remisol CHEMISTRYOrdered By: Lab ROP User on 04-17-2022 Glucose [Mass/Vol] 306 mg/dL High 55 - 99 mg/dL [facility] POC Subsection POC Device SN [id number] Invalid Interpretation Code [facility] POC Subsection POC User ID [id number] Invalid Interpretation Code [facility] POC Subsection POC Username MIN SHARPE Invalid Interpretation Code [facility] POC Subsection Glucose [Mass/Vol] 244 mg/dL High 55 - 99 mg/dL [facility] POC Subsection Comment on above: Result Comment: Mary flores RN/ POC Device SN [id number] Invalid Interpretation Code [facility] POC Subsection POC User ID [id number] Invalid Interpretation Code [facility] POC Subsection POC Username EMERITA FAM Invalid Interpretation Code [facility] POC Subsection CHEMISTRYOrdered By: SYSTEM SYSTEM on 04-17-2022 Anion gap [Moles/Vol] 13 mmol/L Normal 6 - 16 mEq/L [facility] Remisol Calcium [Mass/Vol] 8.4 mg/dL Low 8.9 - 11. 1 mg/dL [facility] Chloride [Moles/Vol] 101 mmol/L Normal 101 - 1 11 mmol/L [facility] CO2 [Moles/Vol] 28 mmol/L Normal 21 - 31 mmol/L [facility] Creatinine [Mass/Vol] 0.8 mg/dL Normal 0.5 - 1.3 mg/dL [facility] GFR/1.73 sq M.predicted among blacks MDRD (S/P/Bld) [Vol rate/Area] mL/min/1.73 m2 Normal >=59mL/min/1 .73 m2 [facility] [place] Chem S GFR/1.73 sq M.predicted among non-blacks MDRD (S/P/Bld) [Vol rate/Area] mL/min/1.73 m2 Normal >=59mL/min/1 .73 m2 [facility] [place] Chem S Glucose [Mass/Vol] 182 mg/dL Normal 55 - 199 mg/dL [facility] Potassium [Moles/Vol] 3.9 mmol/L Normal 3.5 - 5.3 mmol/L [facility] Sodium [Moles/Vol] 138 mmol/L Normal 135 - 145 mmol/L [facility] Urea nitrogen [Mass/Vol] 21 mg/dL Normal 5 - 21 mg/dL [facility] Urea nitrogen/Creatinine [Mass ratio] 26 mg/mg High 10 - 20 [facility] HEMATOLOGYOrdered By: SYSTEM SYSTEM on 04-17-2022 Basophils/100 WBC (Bld) 1.1 % Normal 0.0 - 2.0 % [facility]eAutoSS Basophils/Leukocytes Auto (Bld) [Pure # fraction] 0.1 E9/L Normal 0.0 - 0.2 E9/L [facility] Eosinophils/100 WBC (Bld) 4.0 % Normal 0.0 - 8.0 % [facility] Eosinophils/Leukocyte s Auto (Bld) [Pure # fraction] 0.3 E9/L Normal 0.0 - 0.5 E9/L [facility] Lymphocytes/100 WBC (Bld) 22.6 % Normal 14.0 - 50.0 % [facility] Lymphocytes/Leukocyte s Auto (Bld) [Pure # fraction] 1.5 E9/L Normal 1.0 - 4.0 E9/L [facility] Monocytes/100 WBC (Bld) 10.1 % Normal 4.0 - 14.0 % [facility] Monocytes/Leukocytes Auto (Bld) [Pure # fraction] 0.7 E9/L Normal 0.2 - 1.0 E9/L [facility] Neutrophils/100 WBC (Bld) 62.2 % Normal 36.0 - 75.0 % [facility] Neutrophils/Leukocyte s Auto (Bld) [Pure # fraction] 4.2 E9/L Normal 2.0 - 7.5 E9/L [facility] HEMATOLOGYOrdered By: Lyndon Sellers on 04-17-2022 Erythrocyte distribution width (RBC) [Ratio] 17.0 % High 10.9 - 14.2 % [facility] Hematocrit (Bld) [Volume fraction] 29.5 % Low 37.7 - 49.0 % [facility] Hemoglobin (Bld) [Mass/Vol] 10.0 g/dL Low 13.5 - 17.5 gm/dL [facility] MCH (RBC) [Entitic mass] 25.9 pg Low 27.0 - 34.0 pg [facility] MCHC (RBC) [Mass/Vol] 33.9 g/dL Normal 31.4 - 36.0 gm/dL [facility] MCV (RBC) [Entitic vol] 76.4 fL Low 80.0 - 100.0 fL [facility] Platelet mean volume (Bld) [Entitic vol] 7.7 fL Normal 6.4 - 10.8 fL [facility] Platelets (Bld) [#/Vol] 371.0 E9/L Normal 150.0 - 500.0 E9/L [facility] RBC (Bld) [#/Vol] 3.9 E12/L Low 4.3 - 5.9 E12/L [facility] WBC corrected for nucl RBC Auto (Bld) [#/Vol] 6.8 E9/L Normal 4.0 - 11.0 E9/L [facility] CHEMISTRYOrdered By: SYSTEM SYSTEM on 04-16-2022 Vancomycin trough [Moles/Vol] 28 microgram/mL Invalid Interpretation Code 10 - 20 mcg/mL [facility] Remisol Comment on above: Result Comment: Crit ical Result verified by repeat analysis\Critical Result S_VANC_T:28.0 Called to MAEVE JIMENEZ AT 3N by SHARA PORTILLO And Read Back For Confirmation at: 04/16/2022 13:34:09 Anion gap [Moles/Vol] 15 mmol/L Normal 6 - 16 mEq/L F [facility] Calcium [Mass/Vol] 9.3 mg/dL Normal 8.9 - 11. 1 mg/dL [facility] Chloride [Moles/Vol] 99 mmol/L Low 101 - 1 11 mmol/L [facility] CO2 [Moles/Vol] 26 mmol/L Normal 21 - 31 mmol/L [facility] Creatinine [Mass/Vol] 1.0 mg/dL Normal 0.5 - 1.3 mg/dL [facility] GFR/1.73 sq M.predicted among blacks MDRD (S/P/Bld) [Vol rate/Area] mL/min/1.73 m2 Normal >=59mL/min/1 .73 m2 [facility] Chem S GFR/1.73 sq M.predicted among non-blacks MDRD (S/P/Bld) [Vol rate/Area] mL/min/1.73 m2 Normal >=59mL/min/1 .73 m2 [facility] Chem S Glucose [Mass/Vol] 205 mg/dL High 55 - 199 mg/dL [facility] Magnesium [Mass/Vol] 1.8 mg/dL Normal 1.3 - 2 .4 mg/dL [facility] Potassium [Moles/Vol] 4.0 mmol/L Normal 3.5 - 5.3 mmol/L [facility] Sodium [Moles/Vol] 136 mmol/L Normal 135 - 145 mmol/L [facility] Urea nitrogen [Mass/Vol] 23 mg/dL High 5 - 21 mg/dL [facility] Urea nitrogen/Creatinine [Mass ratio] 23 mg/mg High 10 - 20 [facility] Vancomycin peak [Moles/Vol] 48 microgram/mL Invalid Interpretation Code 20 - 40 mcg/mL [facility] Comment on above: Result Comment: Crit ical Result verified by repeat analysis\Critical Result S_VANC_P:48.0 Called to MAEVE JIMENEZ AT 3N by SHARA PORTILLO And Read Back For Confirmation at: 04/16/2022 08:58:38 CHEMISTRYOrdered By: SYSTEM SYSTEM on 04-15-2022 Anion gap [Moles/Vol] 8 mmol/L Normal 6 - 16 mEq/L F [facility] Calcium [Mass/Vol] 8.7 mg/dL Low 8.9 - 11. 1 mg/dL [facility] Chloride [Moles/Vol] 103 mmol/L Normal 101 - 1 11 mmol/L [facility] Cholesterol [Mass/Vol] 88 mg/dL Low 120 - 200 mg/dL [facility] Cholesterol in HDL [Mass/Vol] 24 mg/dL Invalid Interpretation Code [facility] Cholesterol in LDL [Mass/Vol] 44 mg/dL Normal <=129mg/dL [facility] Cholesterol in VLDL [Mass/Vol] 24 mg/dL Normal 7 - 40 mg/dL [facility] CO2 [Moles/Vol] 25 mmol/L Normal 21 - 31 mmol/L [facility] Creatinine [Mass/Vol] 0.9 mg/dL Normal 0.5 - 1.3 mg/dL [facility] GFR/1.73 sq M.predicted among blacks MDRD (S/P/Bld) [Vol rate/Area] mL/min/1.73 m2 Normal >=59mL/min/1 .73 m2 [facility] Chem S GFR/1.73 sq M.predicted among non-blacks MDRD (S/P/Bld) [Vol rate/Area] mL/min/1.73 m2 Normal >=59mL/min/1 .73 m2 [facility] Chem S Glucose [Mass/Vol] 229 mg/dL High 55 - 199 mg/dL [facility] Potassium [Moles/Vol] 4.0 mmol/L Normal 3.5 - 5.3 mmol/L [facility] Sodium [Moles/Vol] 132 mmol/L Low 135 - 145 mmol/L [facility] Triglyceride [Mass/Vol] 118 mg/dL Normal <=149mg/dL [facility] Urea nitrogen [Mass/Vol] 19 mg/dL Normal 5 - 21 mg/dL [facility] Urea nitrogen/Creatinine [Mass ratio] 21 mg/mg High 10 - 20 [facility] HEMATOLOGYOrdered By: SYSTEM SYSTEM on 04-15-2022 Basophils/100 WBC (Bld) 0.8 % Normal 0.0 - 2.0 % [facility] Basophils/Leukocytes Auto (Bld) [Pure # fraction] 0.1 E9/L Normal 0.0 - 0.2 E9/L [facility] Eosinophils/100 WBC (Bld) 3.0 % Normal 0.0 - 8.0 % [facility] Eosinophils/Leukocyte s Auto (Bld) [Pure # fraction] 0.2 E9/L Normal 0.0 - 0.5 E9/L [facility] Lymphocytes/100 WBC (Bld) 25.7 % Normal 14.0 - 50.0 % [facility] Lymphocytes/Leukocyte s Auto (Bld) [Pure # fraction] 2.1 E9/L Normal 1.0 - 4.0 E9/L [facility] Monocytes/100 WBC (Bld) 7.1 % Normal 4.0 - 14.0 % [facility] Monocytes/Leukocytes Auto (Bld) [Pure # fraction] 0.6 E9/L Normal 0.2 - 1.0 E9/L [facility] Neutrophils/100 WBC (Bld) 63.4 % Normal 36.0 - 75.0 % [facility] Neutrophils/Leukocyte s Auto (Bld) [Pure # fraction] 5.1 E9/L Normal 2.0 - 7.5 E9/L [facility] HEMATOLOGYOrdered By: Carly peck on 04-15-2022 Erythrocyte distribution width (RBC) [Ratio] 16.7 % High 10.9 - 14.2 % [facility] Hematocrit (Bld) [Volume fraction] 30.6 % Low 37.7 - 49.0 % [facility] Hemoglobin (Bld) [Mass/Vol] 10.2 g/dL Low 13.5 - 17.5 gm/dL [facility] MCH (RBC) [Entitic mass] 25.4 pg Low 27.0 - 34.0 pg [facility] MCHC (RBC) [Mass/Vol] 33.4 g/dL Normal 31.4 - 36.0 gm/dL [facility] MCV (RBC) [Entitic vol] 76.0 fL Low 80.0 - 100.0 fL [facility] Platelet mean volume (Bld) [Entitic vol] 8.6 fL Normal 6.4 - 10.8 fL [facility] Platelets (Bld) [#/Vol] 347.0 E9/L Normal 150.0 - 500.0 E9/L [facility] RBC (Bld) [#/Vol] 4.0 E12/L Low 4.3 - 5.9 E12/L [facility] WBC corrected for nucl RBC Auto (Bld) [#/Vol] 8.0 E9/L Normal 4.0 - 11.0 E9/L [facility] CHEMISTRYOrdered By: SYSTEM SYSTEM on 04-14-2022 Troponin I.cardiac [Mass/Vol] 3.70 pg/mL Low 15.90 - 38.40 pg/mL [facility] Remisol Troponin I.cardiac [Mass/Vol] 3.50 pg/mL Low 15.90 - 38.40 pg/mL [facility] Lactate [Mass/Vol] 1.1 mmol/L Normal 0.5 - 2.2 mmol/L [facility] Troponin I.cardiac [Mass/Vol] 3.50 pg/mL Low 15.90 - 38.40 pg/mL [facility] Lactate [Mass/Vol] 2.2 mmol/L Normal 0.5 - 2.2 mmol/L [facility] CHEMISTRYOrdered By: Makenna Miranda on 04-14-2022 Natriuretic peptide B (Bld) [Mass/Vol] 80 pg/mL Normal 5 - 80 pg/mL [facility] COAGULATIONOrdered By: Pietro Estrada on 04-14-2022 aPTT Coag (PPP) [Time] 32.4 s Normal 25.1 - 36.5 second(s) [facility] Auto Coag INR Coag (PPP) [Relative time] 1.1 {INR} Invalid Interpretation Code [facility] Auto Coag PT Coag (PPP) [Time] 12.0 s Normal 9.4 - 1 2.5 second(s) [facility] Auto Coag HEMATOLOGYOrdered By: SYSTEM SYSTEM on 04-14-2022 Basophils/100 WBC (Bld) 1.2 % Normal 0.0 - 2.0 % [facility]Auto[facility] Basophils/Leukocytes Auto (Bld) [Pure # fraction] 0.1 E9/L Normal 0.0 - 0.2 E9/L [facility] Eosinophils/100 WBC (Bld) 1.5 % Normal 0.0 - 8.0 % [facility]Auto[facility] Eosinophils/Leukocyte s Auto (Bld) [Pure # fraction] 0.1 E9/L Normal 0.0 - 0.5 E9/L [facility] Lymphocytes/100 WBC (Bld) 22.1 % Normal 14.0 - 50.0 % [facility]Auto[facility] Lymphocytes/Leukocyte s Auto (Bld) [Pure # fraction] 2.0 E9/L Normal 1.0 - 4.0 E9/L [facility]Auto[facility] Monocytes/100 WBC (Bld) 5.4 % Normal 4.0 - 14.0 % [facility]Auto[facility] Monocytes/Leukocytes Auto (Bld) [Pure # fraction] 0.5 E9/L Normal 0.2 - 1.0 E9/L [facility] Neutrophils/100 WBC (Bld) 69.8 % Normal 36.0 - 75.0 % [facility] Neutrophils/Leukocyte s Auto (Bld) [Pure # fraction] 6.3 E9/L Normal 2.0 - 7.5 E9/L [facility] HEMATOLOGYOrdered By: Alecia Miranda on 04-14-2022 Erythrocyte distribution width (RBC) [Ratio] 16.9 % High 10.9 - 14.2 % [facility] Hematocrit (Bld) [Volume fraction] 32.3 % Low 37.7 - 49.0 % [facility] Hemoglobin (Bld) [Mass/Vol] 10.5 g/dL Low 13.5 - 17.5 gm/dL [facility] MCH (RBC) [Entitic mass] 25.3 pg Low 27.0 - 34.0 pg [facility] MCHC (RBC) [Mass/Vol] 32.4 g/dL Normal 31.4 - 36.0 gm/dL [facility] MCV (RBC) [Entitic vol] 78.1 fL Low 80.0 - 100.0 fL [facility] Platelet mean volume (Bld) [Entitic vol] 8.5 fL Normal 6.4 - 10.8 fL [facility] Platelets (Bld) [#/Vol] 314.0 E9/L Normal 150.0 - 500.0 E9/L [facility] RBC (Bld) [#/Vol] 4.1 E12/L Low 4.3 - 5.9 E12/L [facility] WBC corrected for nucl RBC Auto (Bld) [#/Vol] 9.0 E9/L Normal 4.0 - 11.0 E9/L [facility] No Panel InformationOrdered By: ANGPROCESSSERVER MICROBIOLOGY on 04-14-2022 Blood Culture Charcoal No growth at 4 days. Final to follow at 7 days. [facility] CBC AUTO DIFFon 04-01-2022 BASO # 0.1 103/ul Normal 0.0-0.1 [facility] Comment on above: Performed By: #### C BC #### [facility] [address] [place] [address] Dr. Terrence Gunderson Basophils/100 WBC (Bld) 0.8 % Normal 0.2-2.0 [facility] Comment on above: Performed By: #### C BC #### [facility] [address] [place] [address] Dr. Terrence Gunderson EO # 0.1 103/ul Normal 0.0-0.7 [facility] Comment on above: Performed By: #### C BC #### [facility] [address] [address] [address] Terrence Gunderson Eosinophils/100 WBC (Bld) 1.4 % Normal 0.9-7.0 [facility] Comment on above: Performed By: #### C BC #### [facility] [address] [place] [address] Dr. Terrence Gunderson Erythrocyte distribution width (RBC) [Ratio] 15.7 % Critically high 11.0-15.0 [facility] Comment on above: Performed By: #### C BC #### [facility] [address] [place] [address] Dr. Terrence Gunderson Hematocrit (Bld) [Volume fraction] 35.1 % Critically low 42.0-54.0 [facility] Comment on above: Performed By: #### C BC #### [facility] [address] [place] [address] Dr. Terrence Gunderson Hemoglobin (Bld) [Mass/Vol] 11.2 g/dL Critically low 14.0-18.0 [facility] Comment on above: Performed By: #### C BC #### [facility] [address] [place] [address] Dr. Terrence Gunderson IG # 0.02 10e3/ul Normal 0.00-0.03 [facility] Comment on above: Performed By: #### C BC #### [facility] [address] [place] [address] Dr. Terrence Gunderson IG % 0.3 % Normal 0.0-0.5 [facility] Comment on above: Performed By: #### C BC #### [facility] [address] [place] [address] Dr. Terrence Gunderson LYMPH # 1.9 103/ul Normal 1.2-3.8 [facility] Comment on above: Performed By: #### C BC #### [facility] [address] [place] [address] Dr. Terrence Gunderson Lymphocytes/100 WBC (Bld) 24.2 % Normal 20.5-60.0 [facility] Comment on above: Performed By: #### C BC #### [facility] [address] [place] [address] Dr. Terrence Gunderson MANUAL DIFF REQ NO Normal [facility] Comment on above: Performed By: #### C BC #### [facility] [address] [place] [address] Dr. Terrence Gunderson MCH (RBC) [Entitic mass] 25.6 pg Critically low 25.9-34.0 [facility] Comment on above: Performed By: #### C BC #### [facility] [address] [place] [address] Dr. Terrence Gunderson MCHC (RBC) [Mass/Vol] 31.9 g/dL Normal 29.9-35.2 [facility] Comment on above: Performed By: #### C BC #### [facility] [address] [place] [address] Dr. Terrence Gunderson MCV (RBC) [Entitic vol] 80.1 fL Normal 80.0-94.0 [facility] Comment on above: Performed By: #### C BC #### [facility] [address] [place] [address] Dr. Terrence Gunderson MONO # 0.6 103/ul Normal 0.3-0.8 [facility] Comment on above: Performed By: #### C BC #### [facility] [address] [place] [address] Dr. Terrence Gunderson Monocytes/100 WBC (Bld) 7.8 % Normal 1.7-12.0 [facility] Comment on above: Performed By: #### C BC #### [facility] [address] [place] [address] Dr. Terrence Gunderson NEUT # 5.2 103/ul Normal 1.4-6.5 [facility] Comment on above: Performed By: #### C BC #### [facility] [address] [place] [address] Dr. Terrence Gunderson Neutrophils/100 WBC (Bld) 65.5 % Normal 43.0-75.0 [facility] Comment on above: Performed By: #### C BC #### [facility] [address] [place] [address] Dr. Terrence Gunderson Platelet mean volume (Bld) [Entitic vol] 11.2 fL Normal 9.5-13.5 [facility] Comment on above: Performed By: #### C BC #### [facility] [address] [place] [address] Dr. Terrence Gunderson PLT 232 103/ul Normal 150-450 [facility] Comment on above: Performed By: #### C BC #### [facility] [address] [place] [address] Dr. Terrence Gunderson RBC 4.38 106/ul Critically low 4.70-6.10 [facility] Comment on above: Performed By: #### C BC #### [facility] [address] [place] [address] Dr. Terrence Gunderson WBC 7.9 103/ul Normal 4.0-11.0 [facility] Comment on above: Performed By: #### C BC #### [facility] [address] [place] [address] Dr. Terrence Gnuderson FREE T4on 04-01-2022 Free T4 [Mass/Vol] 1.26 ng/dL Normal 0.76-1.46 [facility] Comment on above: Performed By: #### F T4 #### [facility] [address] [place] [address] Dr. Terrence Gunderson HS-CRPon 04-01-2022 HS-CRP 7.71 mg/L Critically high <=3.00 [facility] Comment on above: Performed By: #### H SCRPT, CMP #### [facility] [address] [place] [address] Dr. Terrence Gunderson PROF 14(COMP METB)on 022 Albumin [Mass/Vol] 3.3 g/dL Critically low 3.4-5.0 [facility] Comment on above: Performed By: #### H SCRPT, CMP #### [facility] [address] [address] [address] Terrence Gunderson Albumin/Globulin [Mass ratio] 0.8 {ratio} Normal [facility] Comment on above: Performed By: #### H SCRPT, CMP #### [facility] [address] [address] [address] Terrence Gunderson ALP [Catalytic activity/Vol] 72 U/L Normal 46-116 [facility] Comment on above: Performed By: #### H SCRPT, CMP #### [facility] [address] [address] [address] Terrence Gunderson ALT [Catalytic activity/Vol] 23 U/L Normal 16-63 [facility] Comment on above: Performed By: #### H SCRPT, CMP #### [facility] [address] [address] [address] Terrence Gunderson Anion gap [Moles/Vol] 12.8 mmol/L Normal [facility] Comment on above: Performed By: #### H SCRPT, CMP #### [facility] [address] [address] [address] Terrence Gunderson AST [Catalytic activity/Vol] 18 U/L Normal 15-37 [facility] Comment on above: Performed By: #### H SCRPT, CMP #### [facility] [address] [address] [address] Terrence Gunderson Bilirubin [Mass/Vol] 0.4 mg/dL Normal 0.2-1.0 [facility] Comment on above: Performed By: #### H SCRPT, CMP #### [facility] [address] [address] [address] Terrence Gunderson Calcium [Mass/Vol] 9.1 mg/dL Normal 8.5-10.1 [facility] Comment on above: Performed By: #### H SCRPT, CMP #### [facility] [address] [address] [address] Terrence Gunderson Chloride [Moles/Vol] 98 mmol/L Normal 98-107 [facility] Comment on above: Performed By: #### H SCRPT, CMP #### [facility] [address] [address] [address] Terrence Gunderson CO2 [Moles/Vol] 29.3 mmol/L Normal 21.0-32.0 [facility] Comment on above: Performed By: #### H SCRPT, CMP #### [facility] [address] [address] [address] Terrence Gunderson Creatinine [Mass/Vol] 0.88 mg/dL Normal 0.70-1.30 [facility] Comment on above: Performed By: #### H SCRPT, CMP #### [facility] [address] [place] [address] Dr. Terrence Gunderson EGFR-AF BRUNEIAN >60 Normal >=60 [facility] Comment on above: Performed By: #### H SCRPT, CMP #### [facility] [address] [place] [address] Dr. Terrence Gunderson EGFR-NON AF BRUNEIAN >60 Normal >=60 [facility] Comment on above: Performed By: #### H SCRPT, CMP #### [facility] [address] [place] [address] Dr. Terrence Gunderson Globulin (S) [Mass/Vol] 4.4 g/dL Normal [facility] Comment on above: Performed By: #### H SCRPT, CMP #### [facility] [address] [place] [address] Dr. Terrence Gunderson Glucose [Mass/Vol] 273 mg/dL Critically high 74-106 [facility] Comment on above: Performed By: #### H SCRPT, CMP #### [facility] [address] [address] [address] Terrence Gunderson Potassium [Moles/Vol] 4.1 mmol/L Normal 3.5-5.1 [facility] Comment on above: Performed By: #### H SCRPT, CMP #### [facility] [address] [address] [address] Terrence Gunderson Protein [Mass/Vol] 7.7 g/dL Normal 6.4-8.2 [facility] Comment on above: Performed By: #### H SCRPT, CMP #### [facility] [address] [place] [address] Dr. Terrence Gunderson Sodium [Moles/Vol] 136 mmol/L Normal 136-145 [facility] Comment on above: Performed By: #### H SCRPT, CMP #### [facility] [address] [place] [address] Dr. Terrence Gunderson Urea nitrogen [Mass/Vol] 19.0 mg/dL Critically high 7.0-18.0 [facility] Comment on above: Performed By: #### H SCRPT, CMP #### [facility] [address] [place] [address] Dr. Terrence Gunderson Urea nitrogen/Creatinine [Mass ratio] 21.6 mg/mg Normal [facility] Comment on above: Performed By: #### H SCRPT, CMP #### [facility] [address] [place] [address] Dr. Terrence Gunderson SED RATE [facility] 2021 SED RATE 68 mm/hr Critically high <=20 [facility] Comment on above: Performed By: #### S EDR #### [facility] Laboratory [address] [place] [address] Dr. Terrence Gunderson TSHon 04-01-2022 TSH 3.084 uIU/mL Normal 0.358-3.740 [facility] Comment on above: Performed By: #### T SH #### [facility] Laboratory [address] [place] [address] Dr. Terrence Gunderson XR CHEST 2 Von 04-01-2022 XR CHEST 2 V EXAM: XR CHEST 2 V HISTORY: . Dyspnea . COMPARISON: 03/05/2021 TECHNIQUE: Frontal and lateral chest FINDINGS: Heart and vascularity are unremarkable. Lungs are expanded and free of focal infiltrates. Spondylosis of the spine is noted. IMPRESSION: No acute heart or lung disease identified. Electronically authenticated by: ZARINA CHOWDHURY Date: 2022-04-01 18:43 Normal [facility] Creatinine and Glomerular fi ltration rate.predicted panel (S/P/Bld)Ordered By: Janet Gomez on 03-21-2022 Creatinine [Mass/Vol] 1.13 mg/dL 0.64-1.27 [facility] Estimated glomerular filtrat ion rate (GFR) non- AmericanOrdered By: Janet Gomez on 03-21-2022 GFR/1.73 sq M.predicted among non-blacks MDRD (S/P/Bld) [Vol rate/Area] > 60 mL/Min [facility] Laboratory - Chemistry and C hemistry - challengeOrdered By: Janet Gomez on 03-21-2022 Natriuretic peptide B (Bld) [Mass/Vol] 18.0 pg/mL 5-100 [facility] No Panel InformationOrdered By: Janet Gomez on 03-21-2022 Estimated GFR () > 60 mL/Min [facility] Comment on above: GFR estimated refere nce range: According to KDOQI guidelines, <60 ml/min/1.73m2 is sufficient to diagnose a patient with chronic kidney disease. Pharmacy Creatinine Clearance (Chem N/A [facility] Serum or plasma anion gap de terminationOrdered By: Janet Gomez on 03-21-2022 Anion gap [Moles/Vol] 13.1 mmol/L 6.0-15.0 [facility] Serum or plasma calcium mary urement (mass/volume)Ordered By: Janet Gomez on 03-21-2022 Calcium [Mass/Vol] 8.9 mg/dL 8.2-10.2 [facility] Serum or plasma chloride cristian surement (moles/volume)Ordered By: Janet Gomez on 03-21-2022 Chloride [Moles/Vol] 97 mmol/L 95-114 [facility] Serum or plasma glucose mary urement (mass/volume)Ordered By: Janet Gomez on 03-21-2022 Glucose [Mass/Vol] 242 mg/dL 70-100 [facility] Comment on above: ADA recommended refe rence rangeRandom Glucose Reference Range is dependent on time and content of last meal. Glucose of more than 200 mg/dL in a nonstressed, ambulatory subject supports the diagnosis of Diabetes Mellitus. Serum or plasma potassium me asurement (moles/volume)Ordered By: Janet Gomez on 03-21-2022 Potassium [Moles/Vol] 4.3 mmol/L 3.5-5.1 [facility] Serum or plasma sodium measu rement (moles/volume)Ordered By: Janet Gomez on 03-21-2022 Sodium [Moles/Vol] 132 mmol/L 136-146 [facility] Serum or plasma total carbon dioxide measurement (moles/volume)Ordered By: Janet Gomez on 03-21-2022 CO2 [Moles/Vol] 26.2 mmol/L 22.0-30.0 [facility] Serum or plasma urea nitroge n measurement (mass/volume)Ordered By: Janet Gomez on 03-21-2022 Urea nitrogen [Mass/Vol] 28 mg/dL 9- [facility] BASIC METABOLIC PANELon 12-09 Calcium [Mass/Vol] 8.4 mg/dL Low 8.6-10.3 [facility] Comment on above: Order Comment: No: D o not add to previous drawRn draw Andrei Performed By: #### 0 0071 ####[facility] [facility] [place] [address], [facility] Chloride [Moles/Vol] 96 mmol/L Low 98-107 [facility] Comment on above: Order Comment: No: D o not add to previous drawRn draw Andrei Performed By: #### 0 0071 ####[facility] [place] [address], [facility] CO2 [Moles/Vol] 34 mmol/L High 21-31 [facility] Comment on above: Order Comment: No: D o not add to previous drawRn draw Andrei Performed By: #### 0 0071 ####[facility] [place] [address], [facility] Creatinine [Mass/Vol] 1.17 mg/dL Normal 0.70-1.30 [facility] Comment on above: Order Comment: No: D o not add to previous drawRn draw Andrei Performed By: #### 0 0071 ####[facility] [facility] [place] [place] [address], [facility] GFR/1.73 sq M.predicted among non-blacks MDRD (S/P/Bld) [Vol rate/Area] mL/min/{1.73_m2} Normal >60 [facility] Comment on above: Order Comment: No: D o not add to previous drawRn draw Andrei Result Comment: [facility]'s estimated glomerularfiltration rate (eGFR) will no longer include consideration of race inits calculation. The National Kidney Foundation's eGFR Task Forcedeveloped new recommendations for the estimation of the glomerularfiltration rate in the [place] They recommend immediate implementation ofthe new equation refit without the race variable in all laboratoriesbecause the calculation does not include race. In addition to notincluding race in the calculation and reporting, it included diversityin its development, and has acceptable performance characteristics andpotential consequences that do not disproportionately affect any onegroup of individuals. Performed By: #### 0 [id number] ####[facility] [facility] [place] [address], [facility] Glucose [Mass/Vol] 177 mg/dL High 70-100 [facility] Comment on above: Order Comment: No: D o not add to previous drawRn draw Andrei Performed By: #### 0 0071 ####[facility] [facility] [place] [address], [facility] Potassium [Moles/Vol] 3.9 mmol/L Normal 3.5-5.1 [facility] Comment on above: Order Comment: No: D o not add to previous drawRn draw Andrei Performed By: #### 0 0071 ####[facility] [facility], [address] Sodium [Moles/Vol] 136 mmol/L Normal 136-145 [facility] Comment on above: Order Comment: No: D o not add to previous drawRn draw Andrei Performed By: #### 0 0071 ####[facility] Urea nitrogen [Mass/Vol] 58 mg/dL High 7-25 [facility] Comment on above: Order Comment: No: D o not add to previous drawRn draw Andrei Performed By: #### 0 0071 ####[facility] [facility] CBC COMPLETE BLOOD COUNTon 0 12-20-2021 Erythrocyte distribution width (RBC) [Ratio] 14.6 % Normal 11.5-15.0 [facility] Comment on above: Order Comment: No: D o not add to previous drawRn draw Andrei Performed By: #### 5 [id number] ####[facility] [facility] Hematocrit (Bld) [Volume fraction] 30.6 % Low 39.0-50.0 [facility] Comment on above: Order Comment: No: D o not add to previous drawRn draw Andrei Performed By: #### 5 [id number] ####[facility] [facility] Hemoglobin (Bld) [Mass/Vol] 10.0 g/dL Low 13.0-17.0 [facility] Comment on above: Order Comment: No: D o not add to previous drawRn draw Andrei Performed By: #### 5 [id number] ####[facility] [place] [address], [facility] MCH (RBC) [Entitic mass] 26.7 pg Low 27.0-33.0 [facility] Comment on above: Order Comment: No: D o not add to previous drawRn draw Andrei Performed By: #### 5 [id number] ####[facility] MCHC (RBC) [Mass/Vol] 32.7 g/dL Normal 32.0-35.0 [facility] Comment on above: Order Comment: No: D o not add to previous drawRn draw Andrei Performed By: #### 5 [id number] ####[facility] MCV (RBC) [Entitic vol] 81.6 fL Low 82.0-98.0 [facility] Comment on above: Order Comment: No: D o not add to previous drawRn draw Andrei Performed By: #### 5 [id number] ####[facility] Nucleated RBC/100 WBC (Bld) [Ratio] 0 % Normal 0-0 [facility] Comment on above: Order Comment: No: D o not add to previous drawRn draw Andrei Performed By: #### 5 [id number] ####[facility] [place] [address], [facility] PLAT CNT 200 10*3/uL Normal 150-400 [facility] Comment on above: Order Comment: No: D o not add to previous drawRn draw Andrei Performed By: #### 5 [id number] ####[facility] RBC (Bld) [#/Vol] 3.75 10*6/uL Low 4.20-5.70 [facility] Comment on above: Order Comment: No: D o not add to previous drawRn draw Andrei Performed By: #### 5 [id number] ####[facility] [place] [address], [facility] WBC (Bld) [#/Vol] 8.71 10*3/uL Normal 4.00-10.60 [facility] Comment on above: Order Comment: No: D o not add to previous drawRn draw Andrei Performed By: #### 5 [id number] ####[facility] [place] [address], [facility] POC GLUCOSE LABon 12-20-2021 Glucose [Mass/Vol] 221 mg/dL High 70-100 [facility] Comment on above: Performed By: #### 8 [id number] ####[facility] [place] [address], [facility] Glucose [Mass/Vol] 147 mg/dL High 70-100 [facility] Comment on above: Performed By: #### 8 [id number] ####[facility] [place] [address], [facility] BASIC METABOLIC PANELon 12-09 Calcium [Mass/Vol] 8.8 mg/dL Normal 8.6-10.3 [facility] Comment on above: Order Comment: No: D o not add to previous draw Performed By: #### 0 0071 ####[facility] [place] [address], [facility] Chloride [Moles/Vol] 95 mmol/L Low 98-107 [facility] Comment on above: Order Comment: No: D o not add to previous draw Performed By: #### 0 0071 ####[facility] [place] [address], [place] CO2 [Moles/Vol] 32 mmol/L High 21-31 [facility] Comment on above: Order Comment: No: D o not add to previous draw Performed By: #### 0 0071 ####[facility] [place] [address], [facility] Creatinine [Mass/Vol] 0.99 mg/dL Normal 0.70-1.30 [facility] Comment on above: Order Comment: No: D o not add to previous draw Performed By: #### 0 0071 ####[facility] [place] [address], [facility] GFR/1.73 sq M.predicted among non-blacks MDRD (S/P/Bld) [Vol rate/Area] mL/min/{1.73_m2} Normal >60 [facility] Comment on above: Order Comment: No: D o not add to previous draw Result Comment: [facility]'s estimated glomerularfiltration rate (eGFR) will no longer include consideration of race inits calculation. The National Kidney Foundation's eGFR Task Forcedeveloped new recommendations for the estimation of the glomerularfiltration rate in the [place] They recommend immediate implementation ofthe new equation refit without the race variable in all laboratoriesbecause the calculation does not include race. In addition to notincluding race in the calculation and reporting, it included diversityin its development, and has acceptable performance characteristics andpotential consequences that do not disproportionately affect any onegroup of individuals. Performed By: #### 0 0071 ####[facility] [place] [address], [facility] Glucose [Mass/Vol] 280 mg/dL High 70-100 [facility] Comment on above: Order Comment: No: D o not add to previous draw Performed By: #### 0 0071 ####[facility] [place] [address], [facility] Potassium [Moles/Vol] 4.5 mmol/L Normal 3.5-5.1 [facility] Comment on above: Order Comment: No: D o not add to previous draw Performed By: #### 0 0071 ####[facility] [facility] [place] [address], [place] Sodium [Moles/Vol] 135 mmol/L Low 136-145 [facility] Comment on above: Order Comment: No: D o not add to previous draw Performed By: #### 0 0071 ####[facility] [facility] [place] [address], [facility] Urea nitrogen [Mass/Vol] 44 mg/dL High 7-25 [facility] Comment on above: Order Comment: No: D o not add to previous draw Performed By: #### 0 0071 ####[facility] CBC COMPLETE BLOOD COUNTon 0 - Erythrocyte distribution width (RBC) [Ratio] 14.6 % Normal 11.5-15.0 [facility] Comment on above: Order Comment: No: D o not add to previous draw Performed By: #### 5 [id number] ####[facility] Hematocrit (Bld) [Volume fraction] 34.6 % Low 39.0-50.0 [facility] Comment on above: Order Comment: No: D o not add to previous draw Performed By: #### 5 [id number] ####[facility] Hemoglobin (Bld) [Mass/Vol] 11.1 g/dL Low 13.0-17.0 [facility] Comment on above: Order Comment: No: D o not add to previous draw Performed By: #### 5 [id number] ####[facility] MCH (RBC) [Entitic mass] 26.2 pg Low 27.0-33.0 [facility] Comment on above: Order Comment: No: D o not add to previous draw Performed By: #### 5 0608 ####[facility] MCHC (RBC) [Mass/Vol] 32.1 g/dL Normal 32.0-35.0 [facility] Comment on above: Order Comment: No: D o not add to previous draw Performed By: #### 5 0608 ####[facility] [place] [address], [place] MCV (RBC) [Entitic vol] 81.8 fL Low 82.0-98.0 [facility] Comment on above: Order Comment: No: D o not add to previous draw Performed By: #### 5 0608 ####[facility] [place] [address], [facility] Nucleated RBC/100 WBC (Bld) [Ratio] 0 % Normal 0-0 [facility] Comment on above: Order Comment: No: D o not add to previous draw Performed By: #### 5 [id number] ####[facility] [facility] [place] [address], [facility] PLAT CNT 251 10*3/uL Normal 150-400 [facility] Comment on above: Order Comment: No: D o not add to previous draw Performed By: #### 5 0608 ####[facility] [facility] [place] [address], [facility] RBC (Bld) [#/Vol] 4.23 10*6/uL Normal 4.20-5.70 [facility] Comment on above: Order Comment: No: D o not add to previous draw Performed By: #### 5 0608 ####[facility] [place] [address], [facility] WBC (Bld) [#/Vol] 9.04 10*3/uL Normal 4.00-10.60 [facility] Comment on above: Order Comment: No: D o not add to previous draw Performed By: #### 5 0608 ####[facility] POC GLUCOSE LABon 12-19-2021 Glucose [Mass/Vol] 225 mg/dL High 70-100 [facility] Comment on above: Performed By: #### 8 [id number] ####[facility] [facility] [place] [address], [facility] Glucose [Mass/Vol] 308 mg/dL High 70-100 [facility] Comment on above: Performed By: #### 8 [id number] ####[facility] [place] [address], [place] Glucose [Mass/Vol] 145 mg/dL High 70-100 [facility] Comment on above: Performed By: #### 8 [id number] ####[facility] [place] [address], [place] Glucose [Mass/Vol] 243 mg/dL High 70-100 [facility] Comment on above: Performed By: #### 8 [id number] ####[facility] [place] [address], [facility] BASIC METABOLIC PANELon 08- 0-2021 Calcium [Mass/Vol] 8.3 mg/dL Low 8.6-10.3 [facility] Comment on above: Order Comment: No: D o not add to previous draw Performed By: #### 0 0071 ####[facility] [place] [address], [facility] Chloride [Moles/Vol] 94 mmol/L Low 98-107 [facility] Comment on above: Order Comment: No: D o not add to previous draw Performed By: #### 0 0071 ####[facility] [facility] [place] [address], [place] CO2 [Moles/Vol] 33 mmol/L High 21-31 [facility] Comment on above: Order Comment: No: D o not add to previous draw Performed By: #### 0 0071 ####[facility] [place] [address], [place] Creatinine [Mass/Vol] 0.91 mg/dL Normal 0.70-1.30 [facility] Comment on above: Order Comment: No: D o not add to previous draw Performed By: #### 0 0071 ####[facility] [place] [address], [facility] GFR/1.73 sq M.predicted among non-blacks MDRD (S/P/Bld) [Vol rate/Area] mL/min/{1.73_m2} Normal >60 [facility] Comment on above: Order Comment: No: D o not add to previous draw Result Comment: [facility]'s estimated glomerularfiltration rate (eGFR) will no longer include consideration of race inits calculation. The National Kid[employer] Foundation's eGFR Task Forcedeveloped new recommendations for the estimation of the glomerularfiltration rate in the [place] They recommend immediate implementation ofthe new equation refit without the race variable in all laboratoriesbecause the calculation does not include race. In addition to notincluding race in the calculation and reporting, it included diversityin its development, and has acceptable performance characteristics andpotential consequences that do not disproportionately affect any onegroup of individuals. Performed By: #### 0 0071 ####[facility] [place] [address], [facility] Glucose [Mass/Vol] 214 mg/dL High 70-100 [facility] Comment on above: Order Comment: No: D o not add to previous draw Performed By: #### 0 0071 ####[facility] [place] [address], [facility] Potassium [Moles/Vol] 4.2 mmol/L Normal 3.5-5.1 [facility] Comment on above: Order Comment: No: D o not add to previous draw Performed By: #### 0 0071 ####[facility] [place] [address], [facility] Sodium [Moles/Vol] 134 mmol/L Low 136-145 [facility] Comment on above: Order Comment: No: D o not add to previous draw Performed By: #### 0 0071 ####[facility] [place] [address], [facility] Urea nitrogen [Mass/Vol] 50 mg/dL High 7-25 [facility] Comment on above: Order Comment: No: D o not add to previous draw Performed By: #### 0 0071 ####[facility] [facility].[address] CBC COMPLETE BLOOD COUNTon 0 12-18-2021 Erythrocyte distribution width (RBC) [Ratio] 14.5 % Normal 11.5-15.0 [facility] Comment on above: Order Comment: No: D o not add to previous draw Performed By: #### 5 [id number] ####[facility] [facility].[address] Hematocrit (Bld) [Volume fraction] 34.2 % Low 39.0-50.0 [facility] Comment on above: Order Comment: No: D o not add to previous draw Performed By: #### 5 0608 ####[facility] [facility].[address] Hemoglobin (Bld) [Mass/Vol] 10.8 g/dL Low 13.0-17.0 [facility] Comment on above: Order Comment: No: D o not add to previous draw Performed By: #### 5 0608 ####[facility] [facility] [address], [facility] MCH (RBC) [Entitic mass] 26.3 pg Low 27.0-33.0 [facility] Comment on above: Order Comment: No: D o not add to previous draw Performed By: #### 5 0608 ####[facility] [facility] [address], [facility] MCHC (RBC) [Mass/Vol] 31.6 g/dL Low 32.0-35.0 [facility] Comment on above: Order Comment: No: D o not add to previous draw Performed By: #### 5 0608 ####[facility] [facility] [address], [facility] MCV (RBC) [Entitic vol] 83.4 fL Normal 82.0-98.0 [facility] Comment on above: Order Comment: No: D o not add to previous draw Performed By: #### 5 0608 ####[facility] [facility] [address], [facility] Nucleated RBC/100 WBC (Bld) [Ratio] 0 % Normal 0-0 [facility] Comment on above: Order Comment: No: D o not add to previous draw Performed By: #### 5 0608 ####[facility] [facility] [address], [facility] PLAT CNT 272 10*3/uL Normal 150-400 [facility] Comment on above: Order Comment: No: D o not add to previous draw Performed By: #### 5 0608 ####[facility] [facility] [address], [facility] RBC (Bld) [#/Vol] 4.10 10*6/uL Low 4.20-5.70 [facility] Comment on above: Order Comment: No: D o not add to previous draw Performed By: #### 5 0608 ####[facility] [facility] [address], [facility] WBC (Bld) [#/Vol] 9.98 10*3/uL Normal 4.00-10.60 [facility] Comment on above: Order Comment: No: D o not add to previous draw Performed By: #### 5 0608 ####[facility] [place] [address], [facility] POC GLUCOSE LABon 12-18-2021 Glucose [Mass/Vol] 347 mg/dL High 70-100 [facility] Comment on above: Performed By: #### 8 [id number] ####[facility] [facility] [address], [facility] Glucose [Mass/Vol] 280 mg/dL High 70-100 [facility] Comment on above: Performed By: #### 8 [id number] ####[facility] [place] [address], [facility] Glucose [Mass/Vol] 177 mg/dL High 70-100 [facility] Comment on above: Performed By: #### 8 [id number] ####[facility] [place] [address], [place] Glucose [Mass/Vol] 224 mg/dL High 70-100 [facility] Comment on above: Performed By: #### 8 [id number] ####[facility] [place] [address], [facility] ANKLE RIGHT 3 VWSon 12-18-19 ANKLE RIGHT 3 VWS Normal [facility] Comment on above: Order Comment: DJD BASIC METABOLIC PANELon Calcium [Mass/Vol] 8.4 mg/dL Low 8.6-10.3 [facility] Comment on above: Order Comment: No: D o not add to previous draw Performed By: #### 0 0071 ####[facility] [place] [address], [facility] Chloride [Moles/Vol] 92 mmol/L Low 98-107 [facility] Comment on above: Order Comment: No: D o not add to previous draw Performed By: #### 0 0071 ####[facility] [place] [address], [facility] CO2 [Moles/Vol] 36 mmol/L High 21-31 [facility] Comment on above: Order Comment: No: D o not add to previous draw Performed By: #### 0 0071 ####[facility] [place] [address], [facility] Creatinine [Mass/Vol] 1.25 mg/dL Normal 0.70-1.30 [facility] Comment on above: Order Comment: No: D o not add to previous draw Performed By: #### 0 0071 ####[facility] [facility] [address], [facility] GFR/1.73 sq M.predicted among non-blacks MDRD (S/P/Bld) [Vol rate/Area] mL/min/{1.73_m2} Normal >60 [facility] Comment on above: Order Comment: No: D o not add to previous draw Result Comment: [facility]'s estimated glomerularfiltration rate (eGFR) will no longer include consideration of race inits calculation. The [employer]'s eGFR Task Forcedeveloped new recommendations for the estimation of the glomerularfiltration rate in the [place] They recommend immediate implementation ofthe new equation refit without the race variable in all laboratoriesbecause the calculation does not include race. In addition to notincluding race in the calculation and reporting, it included diversityin its development, and has acceptable performance characteristics andpotential consequences that do not disproportionately affect any onegroup of individuals. Performed By: #### 0 0071 ####[facility] [facility] [place] [address], [facility] Glucose [Mass/Vol] 281 mg/dL High 70-100 [facility] Comment on above: Order Comment: No: D o not add to previous draw Performed By: #### 0 0071 ####[facility] [place] [address], [facility] Potassium [Moles/Vol] 3.6 mmol/L Normal 3.5-5.1 [facility] Comment on above: Order Comment: No: D o not add to previous draw Performed By: #### 0 0071 ####[facility] [facility].[place] [id number], [facility] Sodium [Moles/Vol] 134 mmol/L Low 136-145 [facility] Comment on above: Order Comment: No: D o not add to previous draw Performed By: #### 0 0071 ####[facility] [facility] Urea nitrogen [Mass/Vol] 58 mg/dL High 7-25 [facility] Comment on above: Order Comment: No: D o not add to previous draw Performed By: #### 0 0071 ####[facility] CBC W/DIFFon 12-17-2021 ABS IMM GRANS 0.1 10*3/uL Normal 0.0-0.2 [facility] Comment on above: Order Comment: No: D o not add to previous draw Performed By: #### 5 0103 ####[facility] ABS NEUTROPHILS 5.8 10*3/uL Normal 1.6-7.6 [facility] Comment on above: Order Comment: No: D o not add to previous draw Performed By: #### 5 3 ####[facility] Basophils (Bld) [#/Vol] 0.1 10*3/uL Normal 0.0-0.2 [facility] Comment on above: Order Comment: No: D o not add to previous draw Performed By: #### 5 3 ####[facility] Basophils/100 WBC (Bld) 0.8 % Normal 0.0-1.0 [facility] Comment on above: Order Comment: No: D o not add to previous draw Performed By: #### 5 3 ####[facility] [facility] [place] [address], [facility] Eosinophils (Bld) [#/Vol] 0.2 10*3/uL Normal 0.0-0.5 [facility] Comment on above: Order Comment: No: D o not add to previous draw Performed By: #### 5 3 ####[facility] [facility].[address] Eosinophils/100 WBC (Bld) 1.7 % Normal 0.0-6.0 [facility] Comment on above: Order Comment: No: D o not add to previous draw Performed By: #### 5 0103 ####[facility] [facility].[address] Erythrocyte distribution width (RBC) [Ratio] 14.1 % Normal 11.5-15.0 [facility] Comment on above: Order Comment: No: D o not add to previous draw Performed By: #### 5 0103 ####[place] [address] [address] Hematocrit (Bld) [Volume fraction] 32.4 % Low 39.0-50.0 [facility] Comment on above: Order Comment: No: D o not add to previous draw Performed By: #### 5 0103 ####[facility] [facility].[address] Hemoglobin (Bld) [Mass/Vol] 10.3 g/dL Low 13.0-17.0 [facility] Comment on above: Order Comment: No: D o not add to previous draw Performed By: #### 5 0103 ####[place] [address] IMMATURE GRANS 0.6 % Normal 0.0-1.0 [facility] Comment on above: Order Comment: No: D o not add to previous draw Performed By: #### 5 0103 ####[address] [place] [address], [facility] Lymphocytes (Bld) [#/Vol] 2.2 10*3/uL Normal 1.2-4.0 [facility] Comment on above: Order Comment: No: D o not add to previous draw Performed By: #### 5 3 ####[address] [place] [address], [place] Lymphocytes/100 WBC (Bld) 24.1 % Normal 20.0-45.0 [facility] Comment on above: Order Comment: No: D o not add to previous draw Performed By: #### 5 0103 ####[facility] [place] [address], [facility] MCH (RBC) [Entitic mass] 26.2 pg Low 27.0-33.0 [facility] Comment on above: Order Comment: No: D o not add to previous draw Performed By: #### 5 0103 ####[address] MCHC (RBC) [Mass/Vol] 31.8 g/dL Low 32.0-35.0 [facility] Comment on above: Order Comment: No: D o not add to previous draw Performed By: #### 5 0103 ####[facility] [place] [address] MCV (RBC) [Entitic vol] 82.4 fL Normal 82.0-98.0 [facility] Comment on above: Order Comment: No: D o not add to previous draw Performed By: #### 5 0103 ####[address] Monocytes (Bld) [#/Vol] 0.8 10*3/uL Normal 0.1-1.0 [facility] Comment on above: Order Comment: No: D o not add to previous draw Performed By: #### 5 0103 ####[facility] [place] [address] MONOS 8.6 % Normal 5.0-12.0 [facility] Comment on above: Order Comment: No: D o not add to previous draw Performed By: #### 5 0103 ####[address] [place] [address], [facility] Neutrophils/100 WBC (Bld) 64.2 % Normal 40.0-72.0 [facility] Comment on above: Order Comment: No: D o not add to previous draw Performed By: #### 5 0103 ####[facility] [place] [address], [facility] Nucleated RBC/100 WBC (Bld) [Ratio] 0 % Normal 0-0 [facility] Comment on above: Order Comment: No: D o not add to previous draw Performed By: #### 5 0103 ####[facility] [place] [address], [facility] PLAT CNT 279 10*3/uL Normal 150-400 [facility] Comment on above: Order Comment: No: D o not add to previous draw Performed By: #### 5 0103 ####[facility] [place] [address], [facility] RBC (Bld) [#/Vol] 3.93 10*6/uL Low 4.20-5.70 [facility] Comment on above: Order Comment: No: D o not add to previous draw Performed By: #### 5 0103 ####[facility] [place] [address], [facility] WBC (Bld) [#/Vol] 9.03 10*3/uL Normal 4.00-10.60 [facility] Comment on above: Order Comment: No: D o not add to previous draw Performed By: #### 5 0103 ####[facility] [facility] [place] [address], [facility] FOOT RIGHT 3 VWSon 2 FOOT RIGHT 3 VWS Normal [facility] Comment on above: Order Comment: Infec tion POC GLUCOSE LABon 12-17-2021 Glucose [Mass/Vol] 356 mg/dL High 70-100 [facility] Comment on above: Performed By: #### 8 5499 ####[facility] [place] [address], [place] Glucose [Mass/Vol] 280 mg/dL High 70-100 [facility] Comment on above: Performed By: #### 8 5499 ####[facility] [place] [address], [place] Glucose [Mass/Vol] 203 mg/dL High 70-100 [facility] Comment on above: Performed By: #### 8 5499 ####[facility] [place] [address], [place] Glucose [Mass/Vol] 187 mg/dL High 70-100 [facility] Comment on above: Performed By: #### 8 5499 ####[facility] [place] [address], [facility] VENOUS BLOOD GASon 2 BASE EXCESS 12 mmol/L Normal [facility] Comment on above: Performed By: #### 7 0069 ####[facility] [place] [address], [facility] HCO3 (Bld) [Moles/Vol] 39 mmol/L Normal [facility] Comment on above: Performed By: #### 7 0069 ####[facility] [place] [address], [facility] Oxygen (Bld) [Partial pressure] 37 mm[Hg] Normal 35-45 [facility] Comment on above: Performed By: #### 7 0069 ####[facility] [place] [address], [facility] Oxygen saturation in Blood 61.0 % Low 65.0-75.0 [facility] Comment on above: Performed By: #### 7 0069 ####[facility] [place] [address], [facility] PCO2 62 mmHg Normal [facility] Comment on above: Performed By: #### 7 0069 ####[facility] [place] [address], [facility] pH (Bld) 7.41 [pH] Normal 7.31-7.41 [facility] Comment on above: Performed By: #### 7 9 ####[facility] [place] [address], [facility] BASIC METABOLIC PANELon 08-0 -2021 Calcium [Mass/Vol] 9.0 mg/dL Normal 8.6-10.3 [facility] Comment on above: Order Comment: No: D o not add to previous draw Performed By: #### 0 0071, 49894, 02144 ####[facility] [place] [address], [facility] Chloride [Moles/Vol] 83 mmol/L Low 98-107 [facility] Comment on above: Order Comment: No: D o not add to previous draw Performed By: #### 0 0071, 21312, 32134 ####[facility] [place] [address], [facility] CO2 [Moles/Vol] 39 mmol/L High 21-31 [facility] Comment on above: Order Comment: No: D o not add to previous draw Performed By: #### 0 0071, 58560, 20369 ####[facility] [place] [address], [facility] Creatinine [Mass/Vol] 1.36 mg/dL High 0.70-1.30 [facility] Comment on above: Order Comment: No: D o not add to previous draw Performed By: #### 0 0071, 29718, 21862 ####[facility] [place] [address], [facility] EGFR 60 ml/min/1.73sq m Abnormal >60 [facility] Comment on above: Order Comment: No: D o not add to previous draw Result Comment: [facility]'s estimated glomerularfiltration rate (eGFR) will no longer include consideration of race inits calculation. The [employer]'s eGFR Task Forcedeveloped new recommendations for the estimation of the glomerularfiltration rate in the [place] They recommend immediate implementation ofthe new equation refit without the race variable in all laboratoriesbecause the calculation does not include race. In addition to notincluding race in the calculation and reporting, it included diversityin its development, and has acceptable performance characteristics andpotential consequences that do not disproportionately affect any onegroup of individuals. Performed By: #### 0 0071, 31761, 01375 ####[facility] [place] [address], [facility] Glucose [Mass/Vol] 287 mg/dL High 70-100 [facility] Comment on above: Order Comment: No: D o not add to previous draw Performed By: #### 0 0071, 12791, 76656 ####[facility] [place] [address], [facility] Potassium [Moles/Vol] 2.8 mmol/L Low 3.5-5.1 [facility] Comment on above: Order Comment: No: D o not add to previous draw Performed By: #### 0 0071, 44791, 89481 ####[facility] [place] [address], [facility] Sodium [Moles/Vol] 132 mmol/L Low 136-145 [facility] Comment on above: Order Comment: No: D o not add to previous draw Performed By: #### 0 0071, 62751, 27351 ####[facility] [place] [address], [facility] Urea nitrogen [Mass/Vol] 67 mg/dL High 7-25 [facility] Comment on above: Order Comment: No: D o not add to previous draw Performed By: #### 0 0071, 17084, 08114 ####[facility] CBC COMPLETE BLOOD COUNTon 0 12-16-2021 Erythrocyte distribution width (RBC) [Ratio] 14.1 % Normal 11.5-15.0 [facility] Comment on above: Order Comment: No: D o not add to previous draw Performed By: #### 5 0608 ####[address] Hematocrit (Bld) [Volume fraction] 33.0 % Low 39.0-50.0 [facility] Comment on above: Order Comment: No: D o not add to previous draw Performed By: #### 5 0608 ####[address] Hemoglobin (Bld) [Mass/Vol] 11.1 g/dL Low 13.0-17.0 [facility] Comment on above: Order Comment: No: D o not add to previous draw Performed By: #### 5 0608 ####[address] MCH (RBC) [Entitic mass] 26.7 pg Low 27.0-33.0 [facility] Comment on above: Order Comment: No: D o not add to previous draw Performed By: #### 5 0608 ####[address] MCHC (RBC) [Mass/Vol] 33.6 g/dL Normal 32.0-35.0 [facility] Comment on above: Order Comment: No: D o not add to previous draw Performed By: #### 5 0608 ####[address] MCV (RBC) [Entitic vol] 79.5 fL Low 82.0-98.0 [facility] Comment on above: Order Comment: No: D o not add to previous draw Performed By: #### 5 0608 ####[facility] [place] [address], [facility] Nucleated RBC/100 WBC (Bld) [Ratio] 0 % Normal 0-0 [facility] Comment on above: Order Comment: No: D o not add to previous draw Performed By: #### 5 0608 ####[facility] [place] [address], [facility] PLAT CNT 224 10*3/uL Normal 150-400 [facility] Comment on above: Order Comment: No: D o not add to previous draw Performed By: #### 5 0608 ####[facility] [place] [address], [facility] RBC (Bld) [#/Vol] 4.15 10*6/uL Low 4.20-5.70 [facility] Comment on above: Order Comment: No: D o not add to previous draw Performed By: #### 5 0608 ####[facility] [place] [address], [facility] WBC (Bld) [#/Vol] 9.30 10*3/uL Normal 4.00-10.60 [facility] Comment on above: Order Comment: No: D o not add to previous draw Performed By: #### 5 0608 ####[facility] [place] [address], [facility] MAGNESIUM BLOODon 12-16-2021 Magnesium [Mass/Vol] 2.5 mg/dL Normal 1.9-2.7 [facility] Comment on above: Order Comment: No: D o not add to previous draw Performed By: #### 0 0071, 39693, 92185 ####[facility] [place] [address], [facility] PHOSPHORUS BLOODon Phosphate [Mass/Vol] 5.6 mg/dL High 2.5-5.0 [facility] Comment on above: Order Comment: No: D o not add to previous draw Performed By: #### 0 0071, 36762, 75088 ####[facility] [place] [address], [facility] POC GLUCOSE LABon 12-16-2021 Glucose [Mass/Vol] 450 mg/dL High 70-100 [facility] Comment on above: Performed By: #### 8 5499 ####[facility] [place] [address], [place] Glucose [Mass/Vol] 258 mg/dL High 70-100 [facility] Comment on above: Performed By: #### 8 5499 ####[facility] [place] [address], [place] Glucose [Mass/Vol] 291 mg/dL High 70-100 [facility] Comment on above: Performed By: #### 8 5499 ####[facility] [place] [address], [place] Glucose [Mass/Vol] 279 mg/dL High 70-100 [facility] Comment on above: Performed By: #### 8 5499 ####[facility] [place] [address], [place] POTASSIUM BLOODon 12-16-2021 Potassium [Moles/Vol] 3.3 mmol/L Low 3.5-5.1 [facility] Comment on above: Order Comment: No: D o not add to previous draw Performed By: #### 4 1406 ####[facility] [place] [address], [place] ALBUMIN BLOODon 12-15-2021 Albumin [Mass/Vol] 4.1 g/dL Normal 3.5-5.7 [facility] Comment on above: Performed By: #### 2 0418, 41824, 68441 ####[facility] [place] [address], [place] BASIC METABOLIC PANELon 08-0 Calcium [Mass/Vol] 9.1 mg/dL Normal 8.6-10.3 [facility] Comment on above: Order Comment: No: D o not add to previous draw Performed By: #### 0 0071 ####[facility] [place] [address], [facility] Chloride [Moles/Vol] 82 mmol/L Low 98-107 [facility] Comment on above: Order Comment: No: D o not add to previous draw Performed By: #### 0 0071 ####[facility] [place] [address], [facility] CO2 [Moles/Vol] 38 mmol/L High 21-31 [facility] Comment on above: Order Comment: No: D o not add to previous draw Performed By: #### 0 0071 ####[facility] [facility] Creatinine [Mass/Vol] 1.94 mg/dL High 0.70-1.30 [facility] Comment on above: Order Comment: No: D o not add to previous draw Performed By: #### 0 0071 ####[facility] [facility].[address] EGFR 39 ml/min/1.73sq m Abnormal >60 [facility] Comment on above: Order Comment: No: D o not add to previous draw Result Comment: [facility]'s estimated glomerularfiltration rate (eGFR) will no longer include consideration of race inits calculation. The [employer]'s eGFR Task Forcedeveloped new recommendations for the estimation of the glomerularfiltration rate in the [place] They recommend immediate implementation ofthe new equation refit without the race variable in all laboratoriesbecause the calculation does not include race. In addition to notincluding race in the calculation and reporting, it included diversityin its development, and has acceptable performance characteristics andpotential consequences that do not disproportionately affect any onegroup of individuals. Performed By: #### 0 0071 ####[facility] [place] [address], [place] Glucose [Mass/Vol] 219 mg/dL High 70-100 [facility] Comment on above: Order Comment: No: D o not add to previous draw Performed By: #### 0 0071 ####[facility] [place] [address], [place] Potassium [Moles/Vol] 2.8 mmol/L Low 3.5-5.1 [facility] Comment on above: Order Comment: No: D o not add to previous draw Performed By: #### 0 0071 ####[facility] [place] [address], [place] Sodium [Moles/Vol] 132 mmol/L Low 136-145 [facility] Comment on above: Order Comment: No: D o not add to previous draw Performed By: #### 0 0071 ####[facility] [place] [address], [place] Urea nitrogen [Mass/Vol] 65 mg/dL High 7-25 [facility] Comment on above: Order Comment: No: D o not add to previous draw Performed By: #### 0 0071 ####[facility] [place] [address], [place] Calcium [Mass/Vol] 9.1 mg/dL Normal 8.6-10.3 [facility] Comment on above: Order Comment: No: D o not add to previous draw Performed By: #### 0 0071 ####[facility] [place] [address], [place] Chloride [Moles/Vol] 83 mmol/L Low 98-107 [facility] Comment on above: Order Comment: No: D o not add to previous draw Performed By: #### 0 0071 ####[facility] [place] [address], [facility] CO2 [Moles/Vol] 38 mmol/L High 21-31 [facility] Comment on above: Order Comment: No: D o not add to previous draw Performed By: #### 0 0071 ####[facility] [place] [address], [facility] Creatinine [Mass/Vol] 1.74 mg/dL High 0.70-1.30 [facility] Comment on above: Order Comment: No: D o not add to previous draw Performed By: #### 0 0071 ####[facility] [place] [address], [facility] EGFR 44 ml/min/1.73sq m Abnormal >60 [facility] Comment on above: Order Comment: No: D o not add to previous draw Result Comment: [facility]'s estimated glomerularfiltration rate (eGFR) will no longer include consideration of race inits calculation. The [employer]'s eGFR Task Forcedeveloped new recommendations for the estimation of the glomerularfiltration rate in the [place] They recommend immediate implementation ofthe new equation refit without the race variable in all laboratoriesbecause the calculation does not include race. In addition to notincluding race in the calculation and reporting, it included diversityin its development, and has acceptable performance characteristics andpotential consequences that do not disproportionately affect any onegroup of individuals. Performed By: #### 0 0071 ####[facility] [place] [address], [facility] Glucose [Mass/Vol] 253 mg/dL High 70-100 [facility] Comment on above: Order Comment: No: D o not add to previous draw Performed By: #### 0 0071 ####[facility] [place] [address], [facility] Potassium [Moles/Vol] 2.9 mmol/L Low 3.5-5.1 [facility] Comment on above: Order Comment: No: D o not add to previous draw Performed By: #### 0 0071 ####[facility] [place] [address], [place] Sodium [Moles/Vol] 133 mmol/L Low 136-145 [facility] Comment on above: Order Comment: No: D o not add to previous draw Performed By: #### 0 0071 ####[facility] [place] [address], [place] Urea nitrogen [Mass/Vol] 65 mg/dL High 7-25 [facility] Comment on above: Order Comment: No: D o not add to previous draw Performed By: #### 0 0071 ####[facility] [place] [address], [place] Calcium [Mass/Vol] 9.2 mg/dL Normal 8.6-10.3 [facility] Comment on above: Order Comment: No: D o not add to previous draw Performed By: #### 2 8, , [id number] ####[facility] [place] [address], [place] Chloride [Moles/Vol] 80 mmol/L Low 98-107 [facility] Comment on above: Order Comment: No: D o not add to previous draw Performed By: #### 2 8, , 99510 ####[facility] [place] [address], [place] CO2 [Moles/Vol] 38 mmol/L High 21-31 [facility] Comment on above: Order Comment: No: D o not add to previous draw Performed By: #### 2 0418, 74480, 87535 ####[facility] [place] [address], [place] Creatinine [Mass/Vol] 1.39 mg/dL High 0.70-1.30 [facility] Comment on above: Order Comment: No: D o not add to previous draw Performed By: #### 2 0418, 29275, 54201 ####[facility] [facility] [place] [place] [address], [facility] EGFR 58 ml/min/1.73sq m Abnormal >60 [facility] Comment on above: Order Comment: No: D o not add to previous draw Result Comment: [facility]'s estimated glomerularfiltration rate (eGFR) will no longer include consideration of race inits calculation. The [employer]'s eGFR Task Forcedeveloped new recommendations for the estimation of the glomerularfiltration rate in the [place] They recommend immediate implementation ofthe new equation refit without the race variable in all laboratoriesbecause the calculation does not include race. In addition to notincluding race in the calculation and reporting, it included diversityin its development, and has acceptable performance characteristics andpotential consequences that do not disproportionately affect any onegroup of individuals. Performed By: #### 2 8, , 67070 ####[facility] [facility] [place] [address], [facility] Glucose [Mass/Vol] 286 mg/dL High 70-100 [facility] Comment on above: Order Comment: No: D o not add to previous draw Performed By: #### 2 8, , 96211 ####[facility] [facility] [place] [address], [facility] Potassium [Moles/Vol] 3.1 mmol/L Low 3.5-5.1 [facility] Comment on above: Order Comment: No: D o not add to previous draw Performed By: #### 2 8, 06440, 22644 ####[facility] [facility] [place] [address], [facility] Sodium [Moles/Vol] 133 mmol/L Low 136-145 [facility] Comment on above: Order Comment: No: D o not add to previous draw Performed By: #### 2 8, , 00738 ####[facility] [facility] [id number], [place] Urea nitrogen [Mass/Vol] 62 mg/dL High 7-25 [facility] Comment on above: Order Comment: No: D o not add to previous draw Performed By: #### 2 0418, 04780, 13138 ####[facility] CBC COMPLETE BLOOD COUNTon 0 12-15-2021 Erythrocyte distribution width (RBC) [Ratio] 14.2 % Normal 11.5-15.0 [facility] Comment on above: Order Comment: No: D o not add to previous draw Performed By: #### 5 0608 ####[facility] Hematocrit (Bld) [Volume fraction] 36.3 % Low 39.0-50.0 [facility] Comment on above: Order Comment: No: D o not add to previous draw Performed By: #### 5 0608 ####[facility] Hemoglobin (Bld) [Mass/Vol] 11.6 g/dL Low 13.0-17.0 [facility] Comment on above: Order Comment: No: D o not add to previous draw Performed By: #### 5 0608 ####[facility] MCH (RBC) [Entitic mass] 26.1 pg Low 27.0-33.0 [facility] Comment on above: Order Comment: No: D o not add to previous draw Performed By: #### 5 0608 ####[facility] MCHC (RBC) [Mass/Vol] 32.0 g/dL Normal 32.0-35.0 [facility] Comment on above: Order Comment: No: D o not add to previous draw Performed By: #### 5 0608 ####[facility] MCV (RBC) [Entitic vol] 81.8 fL Low 82.0-98.0 [facility] Comment on above: Order Comment: No: D o not add to previous draw Performed By: #### 5 0608 ####[facility] Nucleated RBC/100 WBC (Bld) [Ratio] 0 % Normal 0-0 [facility] Comment on above: Order Comment: No: D o not add to previous draw Performed By: #### 5 0608 ####[facility] [place] [address], [facility] PLAT CNT 461 10*3/uL High 150-400 [facility] Comment on above: Order Comment: No: D o not add to previous draw Performed By: #### 5 0608 ####[facility] RBC (Bld) [#/Vol] 4.44 10*6/uL Normal 4.20-5.70 [facility] Comment on above: Order Comment: No: D o not add to previous draw Performed By: #### 5 0608 ####[facility] [place] [address], [facility] WBC (Bld) [#/Vol] 14.85 10*3/uL High 4.00-10.60 [facility] Comment on above: Order Comment: No: D o not add to previous draw Performed By: #### 5 0608 ####[facility] MAGNESIUM BLOODon 12-15-2021 Magnesium [Mass/Vol] 2.1 mg/dL Normal 1.9-2.7 [facility] Comment on above: Order Comment: No: D o not add to previous draw Performed By: #### 2 0418, 90463, 53985 ####[facility] [place] [address], [place] POC GLUCOSE LABon 12-15-2021 Glucose [Mass/Vol] 235 mg/dL High 70-100 [facility] Comment on above: Performed By: #### 8 5499 ####[facility] [place] [address], [place] Glucose [Mass/Vol] 324 mg/dL High 70-100 [facility] Comment on above: Performed By: #### 8 5499 ####[facility] [place] [address], [place] Glucose [Mass/Vol] 312 mg/dL High 70-100 [facility] Comment on above: Performed By: #### 8 5499 ####[facility] [place] [address], [place] Glucose [Mass/Vol] 282 mg/dL High 70-100 [facility] Comment on above: Performed By: #### 8 5499 ####[facility] [place] [address], [place] BASIC METABOLIC PANELon Calcium [Mass/Vol] 9.2 mg/dL Normal 8.6-10.3 [facility] Comment on above: Order Comment: No: D o not add to previous draw Performed By: #### 0 0071, 78616 ####[facility] [place] [address], [place] Chloride [Moles/Vol] 86 mmol/L Low 98-107 [facility] Comment on above: Order Comment: No: D o not add to previous draw Performed By: #### 0 0071, 32295 ####[facility] [place] [address], [place] CO2 [Moles/Vol] 39 mmol/L High 21-31 [facility] Comment on above: Order Comment: No: D o not add to previous draw Performed By: #### 0 0071, 46581 ####[facility] [facility] [place] [place] [address], [facility] Creatinine [Mass/Vol] 1.38 mg/dL High 0.70-1.30 [facility] Comment on above: Order Comment: No: D o not add to previous draw Performed By: #### 0 0071, 66361 ####[facility] [facility] [address], [facility] EGFR 59 ml/min/1.73sq m Abnormal >60 [facility] Comment on above: Order Comment: No: D o not add to previous draw Result Comment: [facility]'s estimated glomerularfiltration rate (eGFR) will no longer include consideration of race inits calculation. The [employer]'s eGFR Task Forcedeveloped new recommendations for the estimation of the glomerularfiltration rate in the [place] They recommend immediate implementation ofthe new equation refit without the race variable in all laboratoriesbecause the calculation does not include race. In addition to notincluding race in the calculation and reporting, it included diversityin its development, and has acceptable performance characteristics andpotential consequences that do not disproportionately affect any onegroup of individuals. Performed By: #### 0 0071, 89876 ####[facility] [place] [address], [facility] Glucose [Mass/Vol] 195 mg/dL High 70-100 [facility] Comment on above: Order Comment: No: D o not add to previous draw Performed By: #### 0 0071, 06540 ####[facility] [facility] [place] [address], [facility] Potassium [Moles/Vol] 2.8 mmol/L Low 3.5-5.1 [facility] Comment on above: Order Comment: No: D o not add to previous draw Performed By: #### 0 0071, 84780 ####[facility] [facility] Sodium [Moles/Vol] 137 mmol/L Normal 136-145 [facility] Comment on above: Order Comment: No: D o not add to previous draw Performed By: #### 0 0071, 73385 ####[facility] [place] [address], [facility] Urea nitrogen [Mass/Vol] 57 mg/dL High 7-25 [facility] Comment on above: Order Comment: No: D o not add to previous draw Performed By: #### 0 0071, 99652 ####[facility] [facility] CBC COMPLETE BLOOD COUNTon 0 12-14-2021 Erythrocyte distribution width (RBC) [Ratio] 14.0 % Normal 11.5-15.0 [facility] Comment on above: Order Comment: No: D o not add to previous draw Performed By: #### 5 0608 ####[facility] [facility].[address] Hematocrit (Bld) [Volume fraction] 37.4 % Low 39.0-50.0 [facility] Comment on above: Order Comment: No: D o not add to previous draw Performed By: #### 5 0608 ####[place] [address] [facility].[address] Hemoglobin (Bld) [Mass/Vol] 11.8 g/dL Low 13.0-17.0 [facility] Comment on above: Order Comment: No: D o not add to previous draw Performed By: #### 5 0608 ####[facility] [facility] [address], [facility] MCH (RBC) [Entitic mass] 25.9 pg Low 27.0-33.0 [facility] Comment on above: Order Comment: No: D o not add to previous draw Performed By: #### 5 0608 ####[facility] [facility].[address] MCHC (RBC) [Mass/Vol] 31.6 g/dL Low 32.0-35.0 [facility] Comment on above: Order Comment: No: D o not add to previous draw Performed By: #### 5 0608 ####[facility] [place] [address], [facility] MCV (RBC) [Entitic vol] 82.2 fL Normal 82.0-98.0 [facility] Comment on above: Order Comment: No: D o not add to previous draw Performed By: #### 5 0608 ####[facility] Nucleated RBC/100 WBC (Bld) [Ratio] 0 % Normal 0-0 [facility] Comment on above: Order Comment: No: D o not add to previous draw Performed By: #### 5 0608 ####[facility] [facility] [place] [address], [facility] PLAT CNT 369 10*3/uL Normal 150-400 [facility] Comment on above: Order Comment: No: D o not add to previous draw Performed By: #### 5 0608 ####[facility] [facility].[address] RBC (Bld) [#/Vol] 4.55 10*6/uL Normal 4.20-5.70 [facility] Comment on above: Order Comment: No: D o not add to previous draw Performed By: #### 5 0608 ####[facility] [facility] [place] [address], [facility] WBC (Bld) [#/Vol] 13.86 10*3/uL High 4.00-10.60 [facility] Comment on above: Order Comment: No: D o not add to previous draw Performed By: #### 5 0608 ####[facility] [place] [address], [facility] MAGNESIUM BLOODon 12-14-2021 Magnesium [Mass/Vol] 1.9 mg/dL Normal 1.9-2.7 [facility] Comment on above: Order Comment: No: D o not add to previous draw Performed By: #### 0 0071, 65857 ####[facility] [place] [address], [facility] POC GLUCOSE LABon 12-14-2021 Glucose [Mass/Vol] 271 mg/dL High 70-100 [facility] Comment on above: Performed By: #### 8 5499 ####[facility] [place] [address], [facility] Glucose [Mass/Vol] 487 mg/dL High 70-100 [facility] Comment on above: Performed By: #### 8 5499 ####[facility] [place] [address], [facility] Glucose [Mass/Vol] 258 mg/dL High 70-100 [facility] Comment on above: Performed By: #### 8 5499 ####[facility] [place] [address], [facility] Glucose [Mass/Vol] 240 mg/dL High 70-100 [facility] Comment on above: Performed By: #### 8 5499 ####[facility] [place] [address], [facility] VENOUS BLOOD GASon 2 BASE EXCESS 21 mmol/L Normal [facility] Comment on above: Order Comment: RESUL TS CHECKED AND CALLED. ACCURATELY READ BACK BY TO Eve OLMSTEAD RN. Result Comment: RESU LTS CHECKED AND CALLED. ACCURATELY READ BACK BY TO Eve OLMSTEAD RN. Performed By: #### 7 0069 ####[facility] [place] [address], [facility] HCO3 (Bld) [Moles/Vol] 47 mmol/L Normal [facility] Comment on above: Order Comment: RESUL TS CHECKED AND CALLED. ACCURATELY READ BACK BY TO Eve OLMSTEAD RN. Result Comment: RESU LTS CHECKED AND CALLED. ACCURATELY READ BACK BY TO Eve OLMSTEAD RN. Performed By: #### 7 0069 ####[facility] Oxygen (Bld) [Partial pressure] 34 mm[Hg] Low 35-45 [facility] Comment on above: Order Comment: RESUL TS CHECKED AND CALLED. ACCURATELY READ BACK BY TO Eve OLMSTEAD RN. Result Comment: RESU LTS CHECKED AND CALLED. ACCURATELY READ BACK BY TO Eve OLMSTEAD RN. Performed By: #### 7 0069 ####[address] Oxygen saturation in Blood 54.0 % Low 65.0-75.0 [facility] Comment on above: Order Comment: RESUL TS CHECKED AND CALLED. ACCURATELY READ BACK BY TO Eve OLMSTEAD RN. Result Comment: RESU LTS CHECKED AND CALLED. ACCURATELY READ BACK BY TO Eve OLMSTEAD RN. Performed By: #### 7 0069 ####[address] PCO2 58 mmHg Normal [facility] Comment on above: Order Comment: RESUL TS CHECKED AND CALLED. ACCURATELY READ BACK BY TO Eve OLMSTEAD RN. Result Comment: RESU LTS CHECKED AND CALLED. ACCURATELY READ BACK BY TO Eve OLMSTEAD RN. Performed By: #### 7 0069 ####[facility] [place] [address], [facility] pH (Bld) 7.52 [pH] High 7.31-7.41 [facility] Comment on above: Order Comment: RESUL TS CHECKED AND CALLED. ACCURATELY READ BACK BY TO Eve OLMSTEAD RN. Result Comment: RESU LTS CHECKED AND CALLED. ACCURATELY READ BACK BY TO Eve OLMSTEAD RN. Performed By: #### 7 0069 ####[facility] BASIC METABOLIC PANELon 08-0 Calcium [Mass/Vol] 9.3 mg/dL Normal 8.6-10.3 [facility] Comment on above: Order Comment: No: D o not add to previous draw Performed By: #### 1 0070, 62475 ####[facility] [place] [address], [facility] Chloride [Moles/Vol] 89 mmol/L Low 98-107 [facility] Comment on above: Order Comment: No: D o not add to previous draw Performed By: #### 1 0, 90018 ####[facility] CO2 [Moles/Vol] 35 mmol/L High 21-31 [facility] Comment on above: Order Comment: No: D o not add to previous draw Performed By: #### 1 0, 50694 ####[facility] [facility].[address] Creatinine [Mass/Vol] 1.39 mg/dL High 0.70-1.30 [facility] Comment on above: Order Comment: No: D o not add to previous draw Performed By: #### 1 0, 71325 ####[facility] EGFR 58 ml/min/1.73sq m Abnormal >60 [facility] Comment on above: Order Comment: No: D o not add to previous draw Result Comment: [facility]'s estimated glomerularfiltration rate (eGFR) will no longer include consideration of race inits calculation. The [employer]'s eGFR Task Forcedeveloped new recommendations for the estimation of the glomerularfiltration rate in the [place] They recommend immediate implementation ofthe new equation refit without the race variable in all laboratoriesbecause the calculation does not include race. In addition to notincluding race in the calculation and reporting, it included diversityin its development, and has acceptable performance characteristics andpotential consequences that do not disproportionately affect any onegroup of individuals. Performed By: #### 1 69, 70077 ####[facility] [facility] [address], [facility] Glucose [Mass/Vol] 300 mg/dL High 70-100 [facility] Comment on above: Order Comment: No: D o not add to previous draw Performed By: #### 1 69, 06724 ####[facility] [place] [address], [facility] Potassium [Moles/Vol] 3.7 mmol/L Normal 3.5-5.1 [facility] Comment on above: Order Comment: No: D o not add to previous draw Performed By: #### 1 69, 55816 ####[facility] [facility].[address] Sodium [Moles/Vol] 135 mmol/L Low 136-145 [facility] Comment on above: Order Comment: No: D o not add to previous draw Performed By: #### 1 69, 35018 ####[facility] [facility].[address] Urea nitrogen [Mass/Vol] 50 mg/dL High 7-25 [facility] Comment on above: Order Comment: No: D o not add to previous draw Performed By: #### 1 69, 22451 ####[place] [address] [facility].[address] CBC COMPLETE BLOOD COUNTon 0 - Erythrocyte distribution width (RBC) [Ratio] 14.1 % Normal 11.5-15.0 [facility] Comment on above: Order Comment: No: D o not add to previous draw Performed By: #### 5 0608 ####[facility] [facility] [address], [facility] Hematocrit (Bld) [Volume fraction] 37.9 % Low 39.0-50.0 [facility] Comment on above: Order Comment: No: D o not add to previous draw Performed By: #### 5 0608 ####[facility] [facility].[address] Hemoglobin (Bld) [Mass/Vol] 12.3 g/dL Low 13.0-17.0 [facility] Comment on above: Order Comment: No: D o not add to previous draw Performed By: #### 5 0608 ####[facility] MCH (RBC) [Entitic mass] 26.1 pg Low 27.0-33.0 [facility] Comment on above: Order Comment: No: D o not add to previous draw Performed By: #### 5 0608 ####[facility] MCHC (RBC) [Mass/Vol] 32.5 g/dL Normal 32.0-35.0 [facility] Comment on above: Order Comment: No: D o not add to previous draw Performed By: #### 5 0608 ####[address] MCV (RBC) [Entitic vol] 80.5 fL Low 82.0-98.0 [facility] Comment on above: Order Comment: No: D o not add to previous draw Performed By: #### 5 0608 ####[facility] Nucleated RBC/100 WBC (Bld) [Ratio] 0 % Normal 0-0 [facility] Comment on above: Order Comment: No: D o not add to previous draw Performed By: #### 5 0608 ####[place] [address], [facility] PLAT CNT 379 10*3/uL Normal 150-400 [facility] Comment on above: Order Comment: No: D o not add to previous draw Performed By: #### 5 0608 ####[facility] [place] [address], [facility] RBC (Bld) [#/Vol] 4.71 10*6/uL Normal 4.20-5.70 [facility] Comment on above: Order Comment: No: D o not add to previous draw Performed By: #### 5 0608 ####[facility] [place] [address], [place] WBC (Bld) [#/Vol] 11.29 10*3/uL High 4.00-10.60 [facility] Comment on above: Order Comment: No: D o not add to previous draw Performed By: #### 5 0608 ####[facility] [place] [address], [place] MAGNESIUM BLOODon 12-13-2021 Magnesium [Mass/Vol] 2.0 mg/dL Normal 1.9-2.7 [facility] Comment on above: Order Comment: No: D o not add to previous draw Performed By: #### 1 0070, 63372 ####[facility] [place] [address], [place] POC GLUCOSE LABon 12-13-2021 Glucose [Mass/Vol] 172 mg/dL High 70-100 [facility] Comment on above: Performed By: #### 8 5499 ####[facility] [place] [address], [place] Glucose [Mass/Vol] 252 mg/dL High 70-100 [facility] Comment on above: Performed By: #### 8 5499 ####[facility] [place] [address], [place] Glucose [Mass/Vol] 333 mg/dL High 70-100 [facility] Comment on above: Performed By: #### 8 5499 ####[facility] [place] [address], [place] Glucose [Mass/Vol] 287 mg/dL High 70-100 [facility] Comment on above: Performed By: #### 8 5499 ####[facility] [place] [address], [place] BASIC METABOLIC PANELon 08-0 Calcium [Mass/Vol] 8.9 mg/dL Normal 8.6-10.3 [facility] Comment on above: Order Comment: No: D o not add to previous draw Performed By: #### 0 0071 ####[facility] [place] [address], [facility] Chloride [Moles/Vol] 92 mmol/L Low 98-107 [facility] Comment on above: Order Comment: No: D o not add to previous draw Performed By: #### 0 0071 ####[facility] [place] [address], [place] CO2 [Moles/Vol] 32 mmol/L High 21-31 [facility] Comment on above: Order Comment: No: D o not add to previous draw Performed By: #### 0 0071 ####[facility] [place] [address], [place] Creatinine [Mass/Vol] 1.48 mg/dL High 0.70-1.30 [facility] Comment on above: Order Comment: No: D o not add to previous draw Performed By: #### 0 0071 ####[facility] [place] [address], [facility] EGFR 54 ml/min/1.73sq m Abnormal >60 [facility] Comment on above: Order Comment: No: D o not add to previous draw Result Comment: [facility]'s estimated glomerularfiltration rate (eGFR) will no longer include consideration of race inits calculation. The [employer]'s eGFR Task Forcedeveloped new recommendations for the estimation of the glomerularfiltration rate in the [place] They recommend immediate implementation ofthe new equation refit without the race variable in all laboratoriesbecause the calculation does not include race. In addition to notincluding race in the calculation and reporting, it included diversityin its development, and has acceptable performance characteristics andpotential consequences that do not disproportionately affect any onegroup of individuals. Performed By: #### 0 0071 ####[facility] [facility] [address], [facility] Glucose [Mass/Vol] 171 mg/dL High 70-100 [facility] Comment on above: Order Comment: No: D o not add to previous draw Performed By: #### 0 0071 ####[place] [address] [place] [address], [facility] Potassium [Moles/Vol] 3.0 mmol/L Low 3.5-5.1 [facility] Comment on above: Order Comment: No: D o not add to previous draw Performed By: #### 0 0071 ####[facility] [facility] [address], [facility] Sodium [Moles/Vol] 135 mmol/L Low 136-145 [facility] Comment on above: Order Comment: No: D o not add to previous draw Performed By: #### 0 0071 ####[place] [address] [place] [address], [facility] Urea nitrogen [Mass/Vol] 45 mg/dL High 7-25 [facility] Comment on above: Order Comment: No: D o not add to previous draw Performed By: #### 0 0071 ####[address] CBC COMPLETE BLOOD COUNTon 0 12-12-2021 Erythrocyte distribution width (RBC) [Ratio] 13.8 % Normal 11.5-15.0 [facility] Comment on above: Order Comment: No: D o not add to previous draw Performed By: #### 5 0608 ####[facility] [facility].[address] Hematocrit (Bld) [Volume fraction] 36.2 % Low 39.0-50.0 [facility] Comment on above: Order Comment: No: D o not add to previous draw Performed By: #### 5 0608 ####[facility] [facility].[address] Hemoglobin (Bld) [Mass/Vol] 11.3 g/dL Low 13.0-17.0 [facility] Comment on above: Order Comment: No: D o not add to previous draw Performed By: #### 5 0608 ####[address] MCH (RBC) [Entitic mass] 25.7 pg Low 27.0-33.0 [facility] Comment on above: Order Comment: No: D o not add to previous draw Performed By: #### 5 0608 ####[facility] [place] [address] MCHC (RBC) [Mass/Vol] 31.2 g/dL Low 32.0-35.0 [facility] Comment on above: Order Comment: No: D o not add to previous draw Performed By: #### 5 0608 ####[facility] [place] [address].[address] MCV (RBC) [Entitic vol] 82.5 fL Normal 82.0-98.0 [facility] Comment on above: Order Comment: No: D o not add to previous draw Performed By: #### 5 0608 ####[address] Nucleated RBC/100 WBC (Bld) [Ratio] 0 % Normal 0-0 [facility] Comment on above: Order Comment: No: D o not add to previous draw Performed By: #### 5 0608 ####[facility] [place] [address], [facility] PLAT CNT 361 10*3/uL Normal 150-400 [facility] Comment on above: Order Comment: No: D o not add to previous draw Performed By: #### 5 0608 ####[facility] [place] [address], [facility] RBC (Bld) [#/Vol] 4.39 10*6/uL Normal 4.20-5.70 [facility] Comment on above: Order Comment: No: D o not add to previous draw Performed By: #### 5 0608 ####[facility] [place] [address], [facility] WBC (Bld) [#/Vol] 12.04 10*3/uL High 4.00-10.60 [facility] Comment on above: Order Comment: No: D o not add to previous draw Performed By: #### 5 0608 ####[facility] [place] [address], [facility] CREATININE URINE RANDOMon Creatinine (U) [Mass/Vol] 37.0 mg/dL Normal [facility] Comment on above: Order Comment: No: D o not add to previous draw Result Comment: Ther e are no established reference values for random urine specimens Performed By: #### 4 1802, 95749, 89057, 54989 ####[facility] [place] [address], [facility] POC GLUCOSE LABon 12-12-2021 Glucose [Mass/Vol] 276 mg/dL High 70-100 [facility] Comment on above: Performed By: #### 8 5499 ####[facility] [place] [address], [facility] Glucose [Mass/Vol] 411 mg/dL High 70-100 [facility] Comment on above: Performed By: #### 8 5499 ####[facility] [place] [address], [place] Glucose [Mass/Vol] 371 mg/dL High 70-100 [facility] Comment on above: Order Comment: NOTE: Result Checked Performed By: #### 8 5499 ####[facility] [place] [address], [place] Glucose [Mass/Vol] 184 mg/dL High 70-100 [facility] Comment on above: Performed By: #### 8 5499 ####[facility] [place] [address], [place] POTASSIUM URon 12-12-2021 Potassium [Moles/Vol] 42.0 mmol/L Normal [facility] Comment on above: Order Comment: No: D o not add to previous draw Result Comment: Ther e are no established reference values for random urine specimens Performed By: #### 4 1802, 58876, 33230, 68390 ####[facility] [place] [address], [facility] SODIUM URINE RANDOMon 2021 Sodium (U) [Moles/Vol] 64 mmol/L Normal [facility] Comment on above: Order Comment: No: D o not add to previous draw Result Comment: Ther e are no established reference values for random urine specimens Performed By: #### 4 1802, 99191, 92901, 53414 ####[facility] [place] [address], [place] T PROT UR Navin 12-12-2021 U TOTAL PROTEIN 14.2 mg/dL Normal [facility] Comment on above: Order Comment: No: D o not add to previous draw Result Comment: Ther e are no established reference values for random urine specimens Performed By: #### 4 1802, 97705, 20087, 32416 ####[facility] [place] [address], [place] BASIC METABOLIC PANELon 08-0 Calcium [Mass/Vol] 8.8 mg/dL Normal 8.6-10.3 [facility] Comment on above: Order Comment: No: D o not add to previous draw Performed By: #### 0 0071 ####[facility] [place] [address], [facility] Chloride [Moles/Vol] 95 mmol/L Low 98-107 [facility] Comment on above: Order Comment: No: D o not add to previous draw Performed By: #### 0 0071 ####[facility] [facility] [place] [place] [address], [facility] CO2 [Moles/Vol] 32 mmol/L High 21-31 [facility] Comment on above: Order Comment: No: D o not add to previous draw Performed By: #### 0 0071 ####[facility] [place] [address], [facility] Creatinine [Mass/Vol] 1.05 mg/dL Normal 0.70-1.30 [facility] Comment on above: Order Comment: No: D o not add to previous draw Performed By: #### 0 0071 ####[facility] [place] [address], [facility] GFR/1.73 sq M.predicted among non-blacks MDRD (S/P/Bld) [Vol rate/Area] mL/min/{1.73_m2} Normal >60 [facility] Comment on above: Order Comment: No: D o not add to previous draw Result Comment: [facility]'s estimated glomerularfiltration rate (eGFR) will no longer include consideration of race inits calculation. The National [employer]'s eGFR Task Forcedeveloped new recommendations for the estimation of the glomerularfiltration rate in the [place] They recommend immediate implementation ofthe new equation refit without the race variable in all laboratoriesbecause the calculation does not include race. In addition to notincluding race in the calculation and reporting, it included diversityin its development, and has acceptable performance characteristics andpotential consequences that do not disproportionately affect any onegroup of individuals. Performed By: #### 0 0071 ####[facility] [place] [address], [place] Glucose [Mass/Vol] 202 mg/dL High 70-100 [facility] Comment on above: Order Comment: No: D o not add to previous draw Performed By: #### 0 0071 ####[facility] [place] [address], [place] Potassium [Moles/Vol] 4.4 mmol/L Normal 3.5-5.1 [facility] Comment on above: Order Comment: No: D o not add to previous draw Performed By: #### 0 0071 ####[facility] [place] [address], [place] Sodium [Moles/Vol] 134 mmol/L Low 136-145 [facility] Comment on above: Order Comment: No: D o not add to previous draw Performed By: #### 0 0071 ####[facility] [facility] [place] [address], [place] Urea nitrogen [Mass/Vol] 34 mg/dL High 7-25 [facility] Comment on above: Order Comment: No: D o not add to previous draw Performed By: #### 0 0071 ####[facility] [place] [address], [place] POC GLUCOSE LABon 12-11-2021 Glucose [Mass/Vol] 363 mg/dL High 70-100 [facility] Comment on above: Performed By: #### 8 5499 ####[facility] [place] [address], [place] Glucose [Mass/Vol] 274 mg/dL High 70-100 [facility] Comment on above: Performed By: #### 8 5499 ####[facility] [place] [address], [facility] Glucose [Mass/Vol] 218 mg/dL High 70-100 [facility] Comment on above: Performed By: #### 8 5499 ####[facility] [place] [address], [facility] Glucose [Mass/Vol] 183 mg/dL High 70-100 [facility] Comment on above: Performed By: #### 8 5499 ####[facility] [place] [address], [facility] BASIC METABOLIC PANELon 08-0 Calcium [Mass/Vol] 8.7 mg/dL Normal 8.6-10.3 [facility] Comment on above: Order Comment: No: D o not add to previous draw Performed By: #### 0 0071, 73351 ####[facility] [place] [address], [facility] Chloride [Moles/Vol] 97 mmol/L Low 98-107 [facility] Comment on above: Order Comment: No: D o not add to previous draw Performed By: #### 0 0071, 19006 ####[facility] [place] [address], [facility] CO2 [Moles/Vol] 32 mmol/L High 21-31 [facility] Comment on above: Order Comment: No: D o not add to previous draw Performed By: #### 0 0071, 24036 ####[facility] [place] [address], [facility] Creatinine [Mass/Vol] 1.14 mg/dL Normal 0.70-1.30 [facility] Comment on above: Order Comment: No: D o not add to previous draw Performed By: #### 0 0071, 76091 ####[facility] [facility] [place] [address], [facility] GFR/1.73 sq M.predicted among non-blacks MDRD (S/P/Bld) [Vol rate/Area] mL/min/{1.73_m2} Normal >60 [facility] Comment on above: Order Comment: No: D o not add to previous draw Result Comment: [facility]'s estimated glomerularfiltration rate (eGFR) will no longer include consideration of race inits calculation. The National [employer]'s eGFR Task Forcedeveloped new recommendations for the estimation of the glomerularfiltration rate in the [place] They recommend immediate implementation ofthe new equation refit without the race variable in all laboratoriesbecause the calculation does not include race. In addition to notincluding race in the calculation and reporting, it included diversityin its development, and has acceptable performance characteristics andpotential consequences that do not disproportionately affect any onegroup of individuals. Performed By: #### 0 0071, 60056 ####[facility] [place] [address], [facility] Glucose [Mass/Vol] 153 mg/dL High 70-100 [facility] Comment on above: Order Comment: No: D o not add to previous draw Performed By: #### 0 0071, 53681 ####[facility] [place] [address], [facility] Potassium [Moles/Vol] 3.8 mmol/L Normal 3.5-5.1 [facility] Comment on above: Order Comment: No: D o not add to previous draw Performed By: #### 0 0071, 30503 ####[facility] [facility] [id number], [facility] Sodium [Moles/Vol] 136 mmol/L Normal 136-145 [facility] Comment on above: Order Comment: No: D o not add to previous draw Performed By: #### 0 0071, 84711 ####[facility] [place] [address], [facility] Urea nitrogen [Mass/Vol] 35 mg/dL High 7-25 [facility] Comment on above: Order Comment: No: D o not add to previous draw Performed By: #### 0 0071, 44525 ####[facility] [place] [address], [place] MAGNESIUM BLOODon 12-10-2021 Magnesium [Mass/Vol] 2.3 mg/dL Normal 1.9-2.7 [facility] Comment on above: Order Comment: No: D o not add to previous draw Performed By: #### 0 0071, 14859 ####[facility] [place] [address], [place] POC GLUCOSE LABon 12-10-2021 Glucose [Mass/Vol] 286 mg/dL High 70-100 [facility] Comment on above: Performed By: #### 8 5499 ####[facility] [place] [address], [place] Glucose [Mass/Vol] 198 mg/dL High 70-100 [facility] Comment on above: Performed By: #### 8 5499 ####[facility] [place] [address], [place] Glucose [Mass/Vol] 270 mg/dL High 70-100 [facility] Comment on above: Performed By: #### 8 5499 ####[facility] [place] [address], [place] Glucose [Mass/Vol] 235 mg/dL High 70-100 [facility] Comment on above: Performed By: #### 8 5499 ####[facility] [place] [address], [place] BASIC METABOLIC PANELon Calcium [Mass/Vol] 8.9 mg/dL Normal 8.6-10.3 [facility] Comment on above: Order Comment: No: D o not add to previous draw Performed By: #### 0 1 ####[facility] [place] [address], [place] Chloride [Moles/Vol] 97 mmol/L Low 98-107 [facility] Comment on above: Order Comment: No: D o not add to previous draw Performed By: #### 0 0071 ####[facility] [place] [address], [facility] CO2 [Moles/Vol] 29 mmol/L Normal 21-31 [facility] Comment on above: Order Comment: No: D o not add to previous draw Performed By: #### 0 0071 ####[facility] [place] [address], [facility] Creatinine [Mass/Vol] 0.92 mg/dL Normal 0.70-1.30 [facility] Comment on above: Order Comment: No: D o not add to previous draw Performed By: #### 0 0071 ####[facility] [place] [address], [facility] GFR/1.73 sq M.predicted among non-blacks MDRD (S/P/Bld) [Vol rate/Area] mL/min/{1.73_m2} Normal >60 [facility] Comment on above: Order Comment: No: D o not add to previous draw Result Comment: [facility]'s estimated glomerularfiltration rate (eGFR) will no longer include consideration of race inits calculation. The [employer] Kid[employer]'s eGFR Task Forcedeveloped new recommendations for the estimation of the glomerularfiltration rate in the [place] They recommend immediate implementation ofthe new equation refit without the race variable in all laboratoriesbecause the calculation does not include race. In addition to notincluding race in the calculation and reporting, it included diversityin its development, and has acceptable performance characteristics andpotential consequences that do not disproportionately affect any onegroup of individuals. Performed By: #### 0 0071 ####[facility] [place] [address], [facility] Glucose [Mass/Vol] 191 mg/dL High 70-100 [facility] Comment on above: Order Comment: No: D o not add to previous draw Performed By: #### 0 0071 ####[facility] [place] [address], [facility] Potassium [Moles/Vol] 4.3 mmol/L Normal 3.5-5.1 [facility] Comment on above: Order Comment: No: D o not add to previous draw Performed By: #### 0 0071 ####[facility] [place] [address], [facility] Sodium [Moles/Vol] 134 mmol/L Low 136-145 [facility] Comment on above: Order Comment: No: D o not add to previous draw Performed By: #### 0 0071 ####[facility] [place] [address], [facility] Urea nitrogen [Mass/Vol] 34 mg/dL High 7-25 [facility] Comment on above: Order Comment: No: D o not add to previous draw Performed By: #### 0 0071 ####[facility] [facility] CBC COMPLETE BLOOD COUNTon 0 - Erythrocyte distribution width (RBC) [Ratio] 13.6 % Normal 11.5-15.0 [facility] Comment on above: Order Comment: No: D o not add to previous draw Performed By: #### 5 0608 ####[facility] [facility].[address] Hematocrit (Bld) [Volume fraction] 33.9 % Low 39.0-50.0 [facility] Comment on above: Order Comment: No: D o not add to previous draw Performed By: #### 5 0608 ####[facility] [place] [address], [facility] Hemoglobin (Bld) [Mass/Vol] 10.6 g/dL Low 13.0-17.0 [facility] Comment on above: Order Comment: No: D o not add to previous draw Performed By: #### 5 0608 ####[facility] [facility].[address] MCH (RBC) [Entitic mass] 26.2 pg Low 27.0-33.0 [facility] Comment on above: Order Comment: No: D o not add to previous draw Performed By: #### 5 0608 ####[facility] [facility].[address] MCHC (RBC) [Mass/Vol] 31.3 g/dL Low 32.0-35.0 [facility] Comment on above: Order Comment: No: D o not add to previous draw Performed By: #### 5 0608 ####[facility] [place] [address] MCV (RBC) [Entitic vol] 83.7 fL Normal 82.0-98.0 [facility] Comment on above: Order Comment: No: D o not add to previous draw Performed By: #### 5 0608 ####[facility] Nucleated RBC/100 WBC (Bld) [Ratio] 0 % Normal 0-0 [facility] Comment on above: Order Comment: No: D o not add to previous draw Performed By: #### 5 0608 ####[facility] [place] [address] PLAT CNT 384 10*3/uL Normal 150-400 [facility] Comment on above: Order Comment: No: D o not add to previous draw Performed By: #### 5 0608 ####[facility] [place] [address] RBC (Bld) [#/Vol] 4.05 10*6/uL Low 4.20-5.70 [facility] Comment on above: Order Comment: No: D o not add to previous draw Performed By: #### 5 0608 ####[facility] [facility] [place] [address], [place] WBC (Bld) [#/Vol] 8.01 10*3/uL Normal 4.00-10.60 [facility] Comment on above: Order Comment: No: D o not add to previous draw Performed By: #### 5 0608 ####[facility] [place] [address], [place] POC GLUCOSE LABon 12-09-2021 Glucose [Mass/Vol] 343 mg/dL High 70-100 [facility] Comment on above: Performed By: #### 8 5499 ####[facility] [facility] [place] [address], [place] Glucose [Mass/Vol] 153 mg/dL High 70-100 [facility] Comment on above: Performed By: #### 8 5499 ####[facility] [facility] [place] [address], [place] Glucose [Mass/Vol] 236 mg/dL High 70-100 [facility] Comment on above: Performed By: #### 8 5499 ####[facility] [facility] [place] [address], [place] Glucose [Mass/Vol] 204 mg/dL High 70-100 [facility] Comment on above: Performed By: #### 8 5499 ####[facility] [facility] [place] [address], [place] POC GLUCOSE LABon 12-08-2021 Glucose [Mass/Vol] 294 mg/dL High 70-100 [facility] Comment on above: Performed By: #### 8 5499 ####[facility] [place] [address], [place] Glucose [Mass/Vol] 193 mg/dL High 70-100 [facility] Comment on above: Performed By: #### 8 5499 ####[facility] [place] [address], [place] Glucose [Mass/Vol] 255 mg/dL High 70-100 [facility] Comment on above: Performed By: #### 8 5499 ####[facility] [place] [address], [place] Glucose [Mass/Vol] 181 mg/dL High 70-100 [facility] Comment on above: Performed By: #### 8 5499 ####[facility] [place] [address], [place] BASIC METABOLIC PANELon 07-3 0-2021 Calcium [Mass/Vol] 9.3 mg/dL Normal 8.6-10.3 [facility] Comment on above: Order Comment: No: D o not add to previous draw Performed By: #### 0 0071 ####[facility] [place] [address], [place] Chloride [Moles/Vol] 94 mmol/L Low 98-107 [facility] Comment on above: Order Comment: No: D o not add to previous draw Performed By: #### 0 0071 ####[facility] [place] [address], [place] CO2 [Moles/Vol] 38 mmol/L High 21-31 [facility] Comment on above: Order Comment: No: D o not add to previous draw Performed By: #### 0 0071 ####[facility] [place] [address], [place] Creatinine [Mass/Vol] 1.05 mg/dL Normal 0.70-1.30 [facility] Comment on above: Order Comment: No: D o not add to previous draw Performed By: #### 0 0071 ####[facility] [place] [address], [place] GFR/1.73 sq M.predicted among non-blacks MDRD (S/P/Bld) [Vol rate/Area] mL/min/{1.73_m2} Normal >60 [facility] Comment on above: Order Comment: No: D o not add to previous draw Result Comment: [facility]'s estimated glomerularfiltration rate (eGFR) will no longer include consideration of race inits calculation. The [employer]'s eGFR Task Forcedeveloped new recommendations for the estimation of the glomerularfiltration rate in the [place] They recommend immediate implementation ofthe new equation refit without the race variable in all laboratoriesbecause the calculation does not include race. In addition to notincluding race in the calculation and reporting, it included diversityin its development, and has acceptable performance characteristics andpotential consequences that do not disproportionately affect any onegroup of individuals. Performed By: #### 0 0071 ####[facility] [place] [address], [facility] Glucose [Mass/Vol] 196 mg/dL High 70-100 [facility] Comment on above: Order Comment: No: D o not add to previous draw Performed By: #### 0 0071 ####[facility] [place] [address], [facility] Potassium [Moles/Vol] 4.2 mmol/L Normal 3.5-5.1 [facility] Comment on above: Order Comment: No: D o not add to previous draw Performed By: #### 0 0071 ####[facility] [place] [address], [facility] Sodium [Moles/Vol] 137 mmol/L Normal 136-145 [facility] Comment on above: Order Comment: No: D o not add to previous draw Performed By: #### 0 0071 ####[facility] [place] [address], [facility] Urea nitrogen [Mass/Vol] 36 mg/dL High 7-25 [facility] Comment on above: Order Comment: No: D o not add to previous draw Performed By: #### 0 0071 ####[facility] [facility] [address], [facility] CBC W/DIFFon 12-07-2021 ABS IMM GRANS 0.1 10*3/uL Normal 0.0-0.2 [facility] Comment on above: Order Comment: Nurse draw Performed By: #### 5 0103 ####[facility] [place] [address], [facility] ABS NEUTROPHILS 4.9 10*3/uL Normal 1.6-7.6 [facility] Comment on above: Order Comment: Nurse draw Performed By: #### 5 3 ####[facility] [facility].[address] Basophils (Bld) [#/Vol] 0.1 10*3/uL Normal 0.0-0.2 [facility] Comment on above: Order Comment: Nurse draw Performed By: #### 3 ####[facility] [place] [address], [facility] Basophils/100 WBC (Bld) 1.0 % Normal 0.0-1.0 [facility] Comment on above: Order Comment: Nurse draw Performed By: #### 5 3 ####[facility] [place] [address], [facility] Eosinophils (Bld) [#/Vol] 0.3 10*3/uL Normal 0.0-0.5 [facility] Comment on above: Order Comment: Nurse draw Performed By: #### 3 ####[facility] [place] [address], [facility] Eosinophils/100 WBC (Bld) 3.1 % Normal 0.0-6.0 [facility] Comment on above: Order Comment: Nurse draw Performed By: #### 5 3 ####[facility] [place] [address], [facility] Erythrocyte distribution width (RBC) [Ratio] 13.5 % Normal 11.5-15.0 [facility] Comment on above: Order Comment: Nurse draw Performed By: #### 5 3 ####[facility] Hematocrit (Bld) [Volume fraction] 33.4 % Low 39.0-50.0 [facility] Comment on above: Order Comment: Nurse draw Performed By: #### 5 3 ####[facility] Hemoglobin (Bld) [Mass/Vol] 10.5 g/dL Low 13.0-17.0 [facility] Comment on above: Order Comment: Nurse draw Performed By: #### 5 3 ####[facility] IMMATURE GRANS 1.4 % High 0.0-1.0 [facility] Comment on above: Order Comment: Nurse draw Performed By: #### 5 3 ####[facility] Lymphocytes (Bld) [#/Vol] 2.3 10*3/uL Normal 1.2-4.0 [facility] Comment on above: Order Comment: Nurse draw Performed By: #### 5 3 ####[facility]3000 [facility].[address] Lymphocytes/100 WBC (Bld) 27.6 % Normal 20.0-45.0 [facility] Comment on above: Order Comment: Nurse draw Performed By: #### 5 3 ####[facility] [facility].[address] MCH (RBC) [Entitic mass] 26.1 pg Low 27.0-33.0 [facility] Comment on above: Order Comment: Nurse draw Performed By: #### 5 102 ####[facility] [facility] [place] [place] [address], [facility] MCHC (RBC) [Mass/Vol] 31.4 g/dL Low 32.0-35.0 [facility] Comment on above: Order Comment: Nurse draw Performed By: #### 5 3 ####[facility] [facility] [place] [place] [address], [facility] MCV (RBC) [Entitic vol] 82.9 fL Normal 82.0-98.0 [facility] Comment on above: Order Comment: Nurse draw Performed By: #### 5 3 ####[facility] [facility] [place] [address], [facility] Monocytes (Bld) [#/Vol] 0.7 10*3/uL Normal 0.1-1.0 [facility] Comment on above: Order Comment: Nurse draw Performed By: #### 5 3 ####[facility] [facility].[address] MONOS 8.2 % Normal 5.0-12.0 [facility] Comment on above: Order Comment: Nurse draw Performed By: #### 5 3 ####[facility] [facility].[address] Neutrophils/100 WBC (Bld) 58.7 % Normal 40.0-72.0 [facility] Comment on above: Order Comment: Nurse draw Performed By: #### 5 3 ####[facility] [facility] [place] [address], [facility] Nucleated RBC/100 WBC (Bld) [Ratio] 0 % Normal 0-0 [facility] Comment on above: Order Comment: Nurse draw Performed By: #### 5 3 ####[facility] [place] [address], [facility] PLAT CNT 402 10*3/uL High 150-400 [facility] Comment on above: Order Comment: Nurse draw Performed By: #### 5 0103 ####[facility] [place] [address], [facility] RBC (Bld) [#/Vol] 4.03 10*6/uL Low 4.20-5.70 [facility] Comment on above: Order Comment: Nurse draw Performed By: #### 5 0103 ####[facility] [place] [address], [place] WBC (Bld) [#/Vol] 8.29 10*3/uL Normal 4.00-10.60 [facility] Comment on above: Order Comment: Nurse draw Performed By: #### 5 0103 ####[facility] [place] [address], [facility] POC GLUCOSE LABon 12-07-2021 Glucose [Mass/Vol] 334 mg/dL High 70-100 [facility] Comment on above: Performed By: #### 8 5499 ####[facility] [place] [address], [place] Glucose [Mass/Vol] 204 mg/dL High 70-100 [facility] Comment on above: Performed By: #### 8 5499 ####[facility] [facility] [place] [address], [place] Glucose [Mass/Vol] 222 mg/dL High 70-100 [facility] Comment on above: Performed By: #### 8 5499 ####[facility] [place] [address], [place] Glucose [Mass/Vol] 205 mg/dL High 70-100 [facility] Comment on above: Performed By: #### 8 5499 ####[facility] [place] [address], [place] URINALYSIS REFLEXon 12-08-19 22 Appearance (U) CLEAR Normal CLEAR [facility] Comment on above: Order Comment: No: D o not add to previous drawCriteria for reflexing a culture was not met. Please call the lab [id number] within 24 hours of collection time if culture is needed Performed By: #### 3 0965 ####[facility] [place] [address], [facility] Bilirubin Ql (U) Negative Normal NEGATIVE [facility] Comment on above: Order Comment: No: D o not add to previous drawCriteria for reflexing a culture was not met. Please call the lab [id number] within 24 hours of collection time if culture is needed Performed By: #### 3 0965 ####[facility] [facility] [place] [address], [facility] BUDDING YEAST OCC Abnormal NONE SEEN [facility] Comment on above: Order Comment: No: D o not add to previous drawCriteria for reflexing a culture was not met. Please call the lab [id number] within 24 hours of collection time if culture is needed Performed By: #### 3 0965 ####[facility] [facility] [place] [address], [facility] Color (U) YELLOW Normal YELLOW [facility] Comment on above: Order Comment: No: D o not add to previous drawCriteria for reflexing a culture was not met. Please call the lab [id number] within 24 hours of collection time if culture is needed Performed By: #### 3 0965 ####[facility] [facility] [address], [facility] EPIS OCC Normal FEW,OCC,NONE SEEN [facility] Comment on above: Order Comment: No: D o not add to previous drawCriteria for reflexing a culture was not met. Please call the lab [id number] within 24 hours of collection time if culture is needed Performed By: #### 3 0965 ####[facility] [place] [address], [facility] Glucose Ql (U) >=1000 Abnormal NEGATIVE [facility] Comment on above: Order Comment: No: D o not add to previous drawCriteria for reflexing a culture was not met. Please call the lab [id number] within 24 hours of collection time if culture is needed Performed By: #### 3 0965 ####[facility] [place] [address], [facility] Hemoglobin Ql (U) TRACE Abnormal NEGATIVE [facility] Comment on above: Order Comment: No: D o not add to previous drawCriteria for reflexing a culture was not met. Please call the lab [id number] within 24 hours of collection time if culture is needed Performed By: #### 3 0965 ####[facility] [facility] [place] [address], [facility] KETONE Negative Normal NEGATIVE [facility] Comment on above: Order Comment: No: D o not add to previous drawCriteria for reflexing a culture was not met. Please call the lab [id number] within 24 hours of collection time if culture is needed Performed By: #### 3 0965 ####[facility] [facility] [place] [address], [facility] LEUK ROMEO Negative Normal NEGATIVE [facility] Comment on above: Order Comment: No: D o not add to previous drawCriteria for reflexing a culture was not met. Please call the lab [id number] within 24 hours of collection time if culture is needed Performed By: #### 3 0965 ####[facility] [facility] [address], [facility] Nitrite Ql (U) Negative Normal NEGATIVE [facility] Comment on above: Order Comment: No: D o not add to previous drawCriteria for reflexing a culture was not met. Please call the lab [id number] within 24 hours of collection time if culture is needed Performed By: #### 3 0965 ####[facility] [facility] [place] [address], [facility] pH (U) 6.0 [pH] Normal 5.0-8.0 [facility] Comment on above: Order Comment: No: D o not add to previous drawCriteria for reflexing a culture was not met. Please call the lab [id number] within 24 hours of collection time if culture is needed Performed By: #### 3 0965 ####[facility] [facility].[address] Protein Ql (U) Negative Normal NEGATIVE [facility] Comment on above: Order Comment: No: D o not add to previous drawCriteria for reflexing a culture was not met. Please call the lab [id number] within 24 hours of collection time if culture is needed Performed By: #### 3 0965 ####[facility] [facility].[address] RBC 0-2 Abnormal NONE SEEN [facility] Comment on above: Order Comment: No: D o not add to previous drawCriteria for reflexing a culture was not met. Please call the lab [id number] within 24 hours of collection time if culture is needed Performed By: #### 3 0965 ####[facility] [facility].[address] SPEC GRAV 1.010 Low 1.015-1.020 [facility] Comment on above: Order Comment: No: D o not add to previous drawCriteria for reflexing a culture was not met. Please call the lab [id number] within 24 hours of collection time if culture is needed Performed By: #### 3 0965 ####[facility] [facility] [place] [address], [facility] WBC UA NONE SEEN Normal NONE SEEN [facility] Comment on above: Order Comment: No: D o not add to previous drawCriteria for reflexing a culture was not met. Please call the lab [id number] within 24 hours of collection time if culture is needed Performed By: #### 3 0965 ####[facility] [facility].[address] *TISSUE CULTUREon 12-06-2021 *TISSUE CULTURE Normal [facility] Comment on above: Performed By: #### 3 0338 ####[facility] BASIC METABOLIC PANELon 07-2 Calcium [Mass/Vol] 8.9 mg/dL Normal 8.6-10.3 [facility] Comment on above: Order Comment: No: D o not add to previous draw Performed By: #### 0 0071 ####[facility] [place] [address], [facility] Chloride [Moles/Vol] 96 mmol/L Low 98-107 [facility] Comment on above: Order Comment: No: D o not add to previous draw Performed By: #### 0 0071 ####[facility] [facility] [place] [place] [address], [facility] CO2 [Moles/Vol] 36 mmol/L High 21-31 [facility] Comment on above: Order Comment: No: D o not add to previous draw Performed By: #### 0 0071 ####[facility] [facility] [address], [facility] Creatinine [Mass/Vol] 1.00 mg/dL Normal 0.70-1.30 [facility] Comment on above: Order Comment: No: D o not add to previous draw Performed By: #### 0 0071 ####[place] [id number] [facility].[address] GFR/1.73 sq M.predicted among non-blacks MDRD (S/P/Bld) [Vol rate/Area] mL/min/{1.73_m2} Normal >60 [facility] Comment on above: Order Comment: No: D o not add to previous draw Result Comment: [facility]'s estimated glomerularfiltration rate (eGFR) will no longer include consideration of race inits calculation. The [employer]'s eGFR Task Forcedeveloped new recommendations for the estimation of the glomerularfiltration rate in the [place] They recommend immediate implementation ofthe new equation refit without the race variable in all laboratoriesbecause the calculation does not include race. In addition to notincluding race in the calculation and reporting, it included diversityin its development, and has acceptable performance characteristics andpotential consequences that do not disproportionately affect any onegroup of individuals. Performed By: #### 0 0071 ####[facility] [place] [address], [facility] Glucose [Mass/Vol] 163 mg/dL High 70-100 [facility] Comment on above: Order Comment: No: D o not add to previous draw Performed By: #### 0 0071 ####[facility] [facility] [place] [place] [address], [facility] Potassium [Moles/Vol] 3.9 mmol/L Normal 3.5-5.1 [facility] Comment on above: Order Comment: No: D o not add to previous draw Performed By: #### 0 0071 ####[facility] [place] [address], [facility] Sodium [Moles/Vol] 139 mmol/L Normal 136-145 [facility] Comment on above: Order Comment: No: D o not add to previous draw Performed By: #### 0 0071 ####[facility] [facility] [place] [address], [facility] Urea nitrogen [Mass/Vol] 40 mg/dL High 7-25 [facility] Comment on above: Order Comment: No: D o not add to previous draw Performed By: #### 0 0071 ####[facility] [facility] [address], [facility] CBC COMPLETE BLOOD COUNTon 0 12-06-2021 Erythrocyte distribution width (RBC) [Ratio] 13.6 % Normal 11.5-15.0 [facility] Comment on above: Order Comment: No: D o not add to previous drawPer mike Paul nurse draw Performed By: #### 5 0608 ####[facility] Hematocrit (Bld) [Volume fraction] 32.9 % Low 39.0-50.0 [facility] Comment on above: Order Comment: No: D o not add to previous drawPer rn Beverly nurse draw Performed By: #### 5 0608 ####[facility] Hemoglobin (Bld) [Mass/Vol] 10.4 g/dL Low 13.0-17.0 [facility] Comment on above: Order Comment: No: D o not add to previous drawPer rn Beverly nurse draw Performed By: #### 5 0608 ####[facility] MCH (RBC) [Entitic mass] 26.5 pg Low 27.0-33.0 [facility] Comment on above: Order Comment: No: D o not add to previous drawPer rn Beverly nurse draw Performed By: #### 5 0608 ####[facility] MCHC (RBC) [Mass/Vol] 31.6 g/dL Low 32.0-35.0 [facility] Comment on above: Order Comment: No: D o not add to previous drawPer rn Beverly nurse draw Performed By: #### 5 0608 ####[facility] MCV (RBC) [Entitic vol] 83.7 fL Normal 82.0-98.0 [facility] Comment on above: Order Comment: No: D o not add to previous drawPer rn [place] nurse draw Performed By: #### 5 0608 ####[facility] Nucleated RBC/100 WBC (Bld) [Ratio] 0 % Normal 0-0 [facility] Comment on above: Order Comment: No: D o not add to previous drawPer rn [place] nurse draw Performed By: #### 5 0608 ####[facility] [place] [address], [facility] PLAT CNT 334 10*3/uL Normal 150-400 [facility] Comment on above: Order Comment: No: D o not add to previous drawPer rn [place] nurse draw Performed By: #### 5 0608 ####[facility] [place] [address], [place] RBC (Bld) [#/Vol] 3.93 10*6/uL Low 4.20-5.70 [facility] Comment on above: Order Comment: No: D o not add to previous drawPer rn [place] nurse draw Performed By: #### 5 0608 ####[facility] [place] [address], [facility] WBC (Bld) [#/Vol] 8.01 10*3/uL Normal 4.00-10.60 [facility] Comment on above: Order Comment: No: D o not add to previous drawPer rn [place] nurse draw Performed By: #### 5 0608 ####[facility] [place] [address], [facility] POC GLUCOSE LABon 12-06-2021 Glucose [Mass/Vol] 259 mg/dL High 70-100 [facility] Comment on above: Performed By: #### 8 5499 ####[facility] [place] [address], [place] Glucose [Mass/Vol] 175 mg/dL High 70-100 [facility] Comment on above: Performed By: #### 8 5499 ####[facility] [place] [address], [place] Glucose [Mass/Vol] 174 mg/dL High 70-100 [facility] Comment on above: Performed By: #### 8 5499 ####[facility] [place] [address], [place] Glucose [Mass/Vol] 187 mg/dL High 70-100 [facility] Comment on above: Performed By: #### 8 5499 ####[facility] [place] [address], [place] Glucose [Mass/Vol] 221 mg/dL High 70-100 [facility] Comment on above: Performed By: #### 8 5499 ####[facility] [place] [address], [place] POC GLUCOSE LABon 12-05-2021 Glucose [Mass/Vol] 247 mg/dL High 70-100 [facility] Comment on above: Performed By: #### 8 5499 ####[facility] [facility] [place] [address], [place] Glucose [Mass/Vol] 199 mg/dL High 70-100 [facility] Comment on above: Performed By: #### 8 5499 ####[facility] [facility] [place] [place] [address], [place] Glucose [Mass/Vol] 146 mg/dL High 70-100 [facility] Comment on above: Performed By: #### 8 5499 ####[facility] [facility] [place] [address], [facility] VANCOMYCIN TROUGHon 12-06-19 VANCOMYCIN TROU 12.5 mcg/mL Normal 5.0-20.0 [facility] Comment on above: Performed By: #### 0 2024 ####[facility] [facility] [place] [address], [facility] BASIC METABOLIC PANELon 11-09 Calcium [Mass/Vol] 8.6 mg/dL Normal 8.6-10.3 [facility] Comment on above: Order Comment: No: D o not add to previous draw Performed By: #### 1 0070, 17025, [id number] ####[facility] [place] [address], [facility] Chloride [Moles/Vol] 98 mmol/L Normal 98-107 [facility] Comment on above: Order Comment: No: D o not add to previous draw Performed By: #### 1 0070, [id number], [id number] ####[facility] [place] [address], [facility] CO2 [Moles/Vol] 33 mmol/L High 21-31 [facility] Comment on above: Order Comment: No: D o not add to previous draw Performed By: #### 1 0070, 17444, [id number] ####[facility] [facility] [address], [facility] Creatinine [Mass/Vol] 0.86 mg/dL Normal 0.70-1.30 [facility] Comment on above: Order Comment: No: D o not add to previous draw Performed By: #### 1 0070, 00383, [id number] ####[facility] [facility].[address] GFR/1.73 sq M.predicted among non-blacks MDRD (S/P/Bld) [Vol rate/Area] mL/min/{1.73_m2} Normal >60 [facility] Comment on above: Order Comment: No: D o not add to previous draw Result Comment: [facility]'s estimated glomerularfiltration rate (eGFR) will no longer include consideration of race inits calculation. The [employer]'s eGFR Task Forcedeveloped new recommendations for the estimation of the glomerularfiltration rate in the [place] They recommend immediate implementation ofthe new equation refit without the race variable in all laboratoriesbecause the calculation does not include race. In addition to notincluding race in the calculation and reporting, it included diversityin its development, and has acceptable performance characteristics andpotential consequences that do not disproportionately affect any onegroup of individuals. Performed By: #### 1 0070, 35437, 69605 ####[facility] [facility] [address], [facility] Glucose [Mass/Vol] 141 mg/dL High 70-100 [facility] Comment on above: Order Comment: No: D o not add to previous draw Performed By: #### 1 0, 24109, 10059 ####[facility] [facility].[address] Potassium [Moles/Vol] 3.7 mmol/L Normal 3.5-5.1 [facility] Comment on above: Order Comment: No: D o not add to previous draw Performed By: #### 1 0, , [id number] ####[facility] [facility].[address] Sodium [Moles/Vol] 138 mmol/L Normal 136-145 [facility] Comment on above: Order Comment: No: D o not add to previous draw Performed By: #### 1 0, , 99910 ####[facility] [facility].[address] Urea nitrogen [Mass/Vol] 27 mg/dL High 7-25 [facility] Comment on above: Order Comment: No: D o not add to previous draw Performed By: #### 1 0, 02182, 81770 ####[facility] [facility].[address] CBC W/DIFFon 12-04-2021 ABS IMM GRANS 0.0 10*3/uL Normal 0.0-0.2 [facility] Comment on above: Order Comment: Pt jason martínez, acnt find RN Performed By: #### 5 0103 ####[facility] ABS NEUTROPHILS 3.9 10*3/uL Normal 1.6-7.6 [facility] Comment on above: Order Comment: Pt jason martínez, acnt find RN Performed By: #### 5 0103 ####[facility] [place] [address], [facility] Basophils (Bld) [#/Vol] 0.1 10*3/uL Normal 0.0-0.2 [facility] Comment on above: Order Comment: Pt gomez s midline, acnt find RN Performed By: #### 5 0103 ####[facility] [place] [address], [facility] Basophils/100 WBC (Bld) 0.8 % Normal 0.0-1.0 [facility] Comment on above: Order Comment: Pt gomez s midline, acnt find RN Performed By: #### 5 0103 ####[facility] [place] [address], [facility] Eosinophils (Bld) [#/Vol] 0.3 10*3/uL Normal 0.0-0.5 [facility] Comment on above: Order Comment: Pt gomez s midline, acnt find RN Performed By: #### 5 3 ####[facility] [place] [address], [facility] Eosinophils/100 WBC (Bld) 4.6 % Normal 0.0-6.0 [facility] Comment on above: Order Comment: Pt gomez s midline, acnt find RN Performed By: #### 5 3 ####[facility] Erythrocyte distribution width (RBC) [Ratio] 13.9 % Normal 11.5-15.0 [facility] Comment on above: Order Comment: Pt gomez s midline, acnt find RN Performed By: #### 5 0103 ####[facility] Hematocrit (Bld) [Volume fraction] 31.7 % Low 39.0-50.0 [facility] Comment on above: Order Comment: Pt gomez s midline, acnt find RN Performed By: #### 5 0103 ####[facility] [place] [address] Hemoglobin (Bld) [Mass/Vol] 9.9 g/dL Low 13.0-17.0 [facility] Comment on above: Order Comment: Pt gomez s midline, acnt find RN Performed By: #### 5 0103 ####[facility] [place] [address] IMMATURE GRANS 0.5 % Normal 0.0-1.0 [facility] Comment on above: Order Comment: Pt gomez s midline, acnt find RN Performed By: #### 5 0103 ####[address] Lymphocytes (Bld) [#/Vol] 1.5 10*3/uL Normal 1.2-4.0 [facility] Comment on above: Order Comment: Pt gomez s midline, acnt find RN Performed By: #### 5 3 ####[address] Lymphocytes/100 WBC (Bld) 23.5 % Normal 20.0-45.0 [facility] Comment on above: Order Comment: Pt gomez s midline, acnt find RN Performed By: #### 5 0103 ####[facility] [place] [address] MCH (RBC) [Entitic mass] 26.3 pg Low 27.0-33.0 [facility] Comment on above: Order Comment: Pt gomez s midline, acnt find RN Performed By: #### 5 0103 ####[address] MCHC (RBC) [Mass/Vol] 31.2 g/dL Low 32.0-35.0 [facility] Comment on above: Order Comment: Pt gomez s midline, acnt find RN Performed By: #### 5 3 ####[facility] MCV (RBC) [Entitic vol] 84.3 fL Normal 82.0-98.0 [facility] Comment on above: Order Comment: Pt gomez s midline, acnt find RN Performed By: #### 5 3 ####[facility] Monocytes (Bld) [#/Vol] 0.6 10*3/uL Normal 0.1-1.0 [facility] [facility] Comment on above: Order Comment: Pt gomez s midline, acnt find RN Performed By: #### 102 ####[facility] MONOS 8.7 % Normal 5.0-12.0 [facility] Comment on above: Order Comment: Pt gomez s midline, acnt find RN Performed By: #### 102 ####[facility] Neutrophils/100 WBC (Bld) 61.9 % Normal 40.0-72.0 [facility] Comment on above: Order Comment: Pt gomez s midline, acnt find RN Performed By: #### 3 ####[facility] Nucleated RBC/100 WBC (Bld) [Ratio] 0 % Normal 0-0 [facility] Comment on above: Order Comment: Pt gomez s midline, acnt find RN Performed By: #### 102 ####[facility] PLAT CNT 270 10*3/uL Normal 150-400 [facility] Comment on above: Order Comment: Pt gomez s midline, acnt find RN Performed By: #### 5 0103 ####[facility] [place] [address], [facility] RBC (Bld) [#/Vol] 3.76 10*6/uL Low 4.20-5.70 [facility] Comment on above: Order Comment: Pt gomez s midline, acnt find RN Performed By: #### 5 0103 ####[facility] [facility] [place] [address], [facility] WBC (Bld) [#/Vol] 6.35 10*3/uL Normal 4.00-10.60 [facility] Comment on above: Order Comment: Pt gomez s midline, acnt find RN Performed By: #### 5 0103 ####[facility] [facility] [place] [address], [facility] LIVER BATTERYon 12-04-2021 Albumin [Mass/Vol] 3.2 g/dL Low 3.5-5.7 [facility] Comment on above: Order Comment: No: D o not add to previous draw Performed By: #### 1 0070, 16196, 36162 ####[facility] [facility].[address] ALKALINE PHOSPH 54 IU/L Normal 34-104 [facility] Comment on above: Order Comment: No: D o not add to previous draw Performed By: #### 1 0070, 36400, 88764 ####[facility] [facility].[address] ALT [Catalytic activity/Vol] 12 U/L Normal 7-52 [facility] Comment on above: Order Comment: No: D o not add to previous draw Performed By: #### 1 0070, 09588, 70614 ####[facility] [facility].[address] AST [Catalytic activity/Vol] 15 U/L Normal 13-39 [facility] Comment on above: Order Comment: No: D o not add to previous draw Performed By: #### 1 0070, 54599, 22823 ####[facility] [place] [address], [place] Bilirubin [Mass/Vol] 0.6 mg/dL Normal 0.3-1.0 [facility] Comment on above: Order Comment: No: D o not add to previous draw Performed By: #### 1 0, 73230, 81675 ####[facility] [place] [address], [place] Bilirubin.direct [Mass/Vol] 0.1 mg/dL Normal 0.0-0.2 [facility] Comment on above: Order Comment: No: D o not add to previous draw Performed By: #### 1 0, 34748, 08775 ####[facility] [place] [address], [place] Protein [Mass/Vol] 6.5 g/dL Normal 6.0-8.3 [facility] Comment on above: Order Comment: No: D o not add to previous draw Performed By: #### 1 0, 71519, 62337 ####[facility] [place] [address], [facility] MAGNESIUM BLOODon 12-04-2021 Magnesium [Mass/Vol] 2.0 mg/dL Normal 1.9-2.7 [facility] Comment on above: Order Comment: No: D o not add to previous draw Performed By: #### 1 0, 16632, 46295 ####[facility] [place] [address], [place] POC GLUCOSE LABon 12-04-2021 Glucose [Mass/Vol] 346 mg/dL High 70-100 [facility] Comment on above: Performed By: #### 8 5499 ####[facility] [place] [address], [place] Glucose [Mass/Vol] 239 mg/dL High 70-100 [facility] Comment on above: Performed By: #### 8 5499 ####[facility] [facility].[address] Glucose [Mass/Vol] 181 mg/dL High 70-100 [facility] Comment on above: Performed By: #### 8 5499 ####[facility] Glucose [Mass/Vol] 275 mg/dL High 70-100 [facility] Comment on above: Performed By: #### 8 5499 ####[facility] [place] [address], [facility] Glucose [Mass/Vol] 153 mg/dL High 70-100 [facility] Comment on above: Performed By: #### 8 5499 ####[facility] *BLOOD CULTUREon 12-03-2021 *BLOOD CULTURE Clinical Report: (D) Specimen: BLOOD CULTURE Collected: 12/03/2021 00:36 Status: Final Last Updated: 12/08/2021 06:53 CULT RES (Final) No Growth Day 5 Normal [facility] Comment on above: Performed By: #### 3 0313 ####[facility] *FUNGAL BLOOD CULTUREon 11-09 *FUNGAL BLOOD CULTURE Normal [facility] Comment on above: Order Comment: No: D o not add to previous draw Performed By: #### 3 0315 ####[facility] [facility].[address] APTTon 12-03-2021 aPTT Coag (Bld) [Time] 36.5 s High 25.0-35.0 [facility] Comment on above: Order Comment: No: D o not add to previous draw Result Comment: ALL RESULTS MUST BE INTERPRETED WITH RESPECT TO BLOOD DRAWING ARTIFACTOR DILUTION ERROR OF ANTICOAGULANT AT THE TIME OF SAMPLING.THE APTT SHOULD NOT BE USED TO MONITOR UNFRACTIONATED HEPARIN THERAPY, THIS LABORATORY NO LONGER HAS AN ESTABLISHED THERAPEUTIC RANGE BASEDON THE APTT. IT IS RECOMMENDED THAT THE [facility] - HEPARIN ASSAY (ANTI-XAACTIVITY) BE USED FOR THIS PURPOSE. Performed By: #### 5 7307, 72445 ####[facility] BNP (B-TYPE NATRIURETIC PEPT CHANNING)on 12-03-2021 Natriuretic peptide B (Bld) [Mass/Vol] 25 pg/mL Normal 0-100 [facility] Comment on above: Order Comment: No: D o not add to previous draw Result Comment: Give n the appropriate clinical setting a BNP result of >100 pg/mLindicates congestive heart failure. Performed By: #### 3 1791, 90828 ####[address] CBC W/DIFFon 12-03-2021 ABS IMM GRANS 0.0 10*3/uL Normal 0.0-0.2 [facility] Comment on above: Order Comment: No: D o not add to previous draw Performed By: #### 5 0103 ####[place] [address] [address] ABS NEUTROPHILS 5.0 10*3/uL Normal 1.6-7.6 [facility] Comment on above: Order Comment: No: D o not add to previous draw Performed By: #### 5 0103 ####[place] [address] [facility].[address] Basophils (Bld) [#/Vol] 0.1 10*3/uL Normal 0.0-0.2 [facility] Comment on above: Order Comment: No: D o not add to previous draw Performed By: #### 5 0103 ####[place] [address] [address] Basophils/100 WBC (Bld) 0.6 % Normal 0.0-1.0 [facility] Comment on above: Order Comment: No: D o not add to previous draw Performed By: #### 5 0103 ####[facility] Eosinophils (Bld) [#/Vol] 0.2 10*3/uL Normal 0.0-0.5 [facility] Comment on above: Order Comment: No: D o not add to previous draw Performed By: #### 5 0103 ####[facility] Eosinophils/100 WBC (Bld) 3.0 % Normal 0.0-6.0 [facility] Comment on above: Order Comment: No: D o not add to previous draw Performed By: #### 5 3 ####[facility] Erythrocyte distribution width (RBC) [Ratio] 14.2 % Normal 11.5-15.0 [facility] Comment on above: Order Comment: No: D o not add to previous draw Performed By: #### 5 0103 ####[facility] Hematocrit (Bld) [Volume fraction] 31.9 % Low 39.0-50.0 [facility] Comment on above: Order Comment: No: D o not add to previous draw Performed By: #### 5 0103 ####[facility] Hemoglobin (Bld) [Mass/Vol] 10.3 g/dL Low 13.0-17.0 [facility] Comment on above: Order Comment: No: D o not add to previous draw Performed By: #### 5 0103 ####[facility] IMMATURE GRANS 0.4 % Normal 0.0-1.0 [facility] Comment on above: Order Comment: No: D o not add to previous draw Performed By: #### 5 0103 ####[facility] Lymphocytes (Bld) [#/Vol] 1.8 10*3/uL Normal 1.2-4.0 [facility] Comment on above: Order Comment: No: D o not add to previous draw Performed By: #### 5 0103 ####[facility] Lymphocytes/100 WBC (Bld) 22.7 % Normal 20.0-45.0 [facility] Comment on above: Order Comment: No: D o not add to previous draw Performed By: #### 5 0103 ####[facility] MCH (RBC) [Entitic mass] 26.5 pg Low 27.0-33.0 [facility] Comment on above: Order Comment: No: D o not add to previous draw Performed By: #### 5 0103 ####[facility] MCHC (RBC) [Mass/Vol] 32.3 g/dL Normal 32.0-35.0 [facility] Comment on above: Order Comment: No: D o not add to previous draw Performed By: #### 5 0103 ####[facility] [place] [address], [facility] MCV (RBC) [Entitic vol] 82.2 fL Normal 82.0-98.0 [facility] Comment on above: Order Comment: No: D o not add to previous draw Performed By: #### 5 0103 ####[facility] [place] [address], [facility] Monocytes (Bld) [#/Vol] 0.8 10*3/uL Normal 0.1-1.0 [facility] Comment on above: Order Comment: No: D o not add to previous draw Performed By: #### 5 0103 ####[facility] [facility] [address], [facility] MONOS 10.0 % Normal 5.0-12.0 [facility] Comment on above: Order Comment: No: D o not add to previous draw Performed By: #### 5 0103 ####[facility] [facility] [place] [address], [facility] Neutrophils/100 WBC (Bld) 63.3 % Normal 40.0-72.0 [facility] Comment on above: Order Comment: No: D o not add to previous draw Performed By: #### 5 0103 ####[facility] [facility] [place] [address], [facility] Nucleated RBC/100 WBC (Bld) [Ratio] 0 % Normal 0-0 [facility] Comment on above: Order Comment: No: D o not add to previous draw Performed By: #### 5 0103 ####[facility] [facility] [place] [address], [facility] PLAT CNT 250 10*3/uL Normal 150-400 [facility] Comment on above: Order Comment: No: D o not add to previous draw Performed By: #### 5 0103 ####[facility] [facility] [place] [address], [facility] RBC (Bld) [#/Vol] 3.88 10*6/uL Low 4.20-5.70 [facility] Comment on above: Order Comment: No: D o not add to previous draw Performed By: #### 5 0103 ####[facility] [facility] [address], [facility] WBC (Bld) [#/Vol] 7.93 10*3/uL Normal 4.00-10.60 [facility] Comment on above: Order Comment: No: D o not add to previous draw Performed By: #### 5 0103 ####[facility] COMP METABOLIC PANELon 12-03 Albumin [Mass/Vol] 3.6 g/dL Normal 3.5-5.7 [facility] Comment on above: Order Comment: No: D o not add to previous draw Performed By: #### 3 1569, 20800, 69025, 83816 ####[facility] ALKALINE PHOSPH 62 IU/L Normal 34-104 [facility] Comment on above: Order Comment: No: D o not add to previous draw Performed By: #### 3 1569, 19727, 57715, 69923 ####[facility] ALT [Catalytic activity/Vol] 17 U/L Normal 7-52 [facility] Comment on above: Order Comment: No: D o not add to previous draw Performed By: #### 3 1569, 58598, 14193, 09536 ####[facility] AST [Catalytic activity/Vol] 18 U/L Normal 13-39 [facility] Comment on above: Order Comment: No: D o not add to previous draw Performed By: #### 3 1569, 37015, 95048, 73580 ####[facility] [place] [address], [facility] Bilirubin [Mass/Vol] 0.7 mg/dL Normal 0.3-1.0 [facility] Comment on above: Order Comment: No: D o not add to previous draw Performed By: #### 3 1569, 29991, 56008, 24298 ####[facility] [place] [address], [facility] Calcium [Mass/Vol] 8.6 mg/dL Normal 8.6-10.3 [facility] Comment on above: Order Comment: No: D o not add to previous draw Performed By: #### 3 1569, 56455, 52896, 10102 ####[facility] [place] [address], [facility] Chloride [Moles/Vol] 97 mmol/L Low 98-107 [facility] Comment on above: Order Comment: No: D o not add to previous draw Performed By: #### 3 1569, 20959, 54027, 09111 ####[facility] [place] [address], [facility] CO2 [Moles/Vol] 29 mmol/L Normal 21-31 [facility] Comment on above: Order Comment: No: D o not add to previous draw Performed By: #### 3 1569, 16199, 37779, 31444 ####[facility] [place] [address], [facility] Creatinine [Mass/Vol] 0.93 mg/dL Normal 0.70-1.30 [facility] Comment on above: Order Comment: No: D o not add to previous draw Performed By: #### 3 1569, 63605, 26778, 58830 ####[facility] [facility] [address], [facility] GFR/1.73 sq M.predicted among non-blacks MDRD (S/P/Bld) [Vol rate/Area] mL/min/{1.73_m2} Normal >60 [facility] Comment on above: Order Comment: No: D o not add to previous draw Result Comment: [facility]'s estimated glomerularfiltration rate (eGFR) will no longer include consideration of race inits calculation. The [employer]'s eGFR Task Forcedeveloped new recommendations for the estimation of the glomerularfiltration rate in the [place] They recommend immediate implementation ofthe new equation refit without the race variable in all laboratoriesbecause the calculation does not include race. In addition to notincluding race in the calculation and reporting, it included diversityin its development, and has acceptable performance characteristics andpotential consequences that do not disproportionately affect any onegroup of individuals. Performed By: #### 3 1569, 10004, 66572, 99362 ####[facility] [place] [address], [place] Glucose [Mass/Vol] 108 mg/dL High 70-100 [facility] Comment on above: Order Comment: No: D o not add to previous draw Performed By: #### 3 1569, 09444, 02885, 68251 ####[facility] [place] [address], [place] Potassium [Moles/Vol] 3.6 mmol/L Normal 3.5-5.1 [facility] Comment on above: Order Comment: No: D o not add to previous draw Performed By: #### 3 1569, 08065, 40820, 41419 ####[facility] [facility] [place] [place] [address], [place] Protein [Mass/Vol] 6.8 g/dL Normal 6.0-8.3 [facility] Comment on above: Order Comment: No: D o not add to previous draw Performed By: #### 3 1569, 50692, 32333, 53201 ####[facility] [place] [address], [place] Sodium [Moles/Vol] 136 mmol/L Normal 136-145 [facility] Comment on above: Order Comment: No: D o not add to previous draw Performed By: #### 3 1569, 15958, 03459, 47285 ####[facility] [place] [address], [place] Urea nitrogen [Mass/Vol] 24 mg/dL Normal 7-25 [facility] Comment on above: Order Comment: No: D o not add to previous draw Performed By: #### 3 1569, 94624, 98800, 08655 ####[facility] [place] [address], [facility] FOOT LEFT 3 VWSon 12-03-2021 FOOT LEFT 3 VWS Normal [facility] Comment on above: Order Comment: Osteo myelitis FOOT RIGHT 3 VWSon 2 FOOT RIGHT 3 VWS Normal [facility] Comment on above: Order Comment: Osteo myelitis HEMOGLOBIN A1Con 12-03-2021 Glucose [Moles/Vol] 163 mmol/L Normal [facility] Comment on above: Order Comment: No: D o not add to previous draw Performed By: #### 3 1791, 19329 ####[facility] HbA1c (Bld) [Mass fraction] 7.3 % High 4.0-6.0 [facility] Comment on above: Order Comment: No: D o not add to previous draw Performed By: #### 3 1791, 56413 ####[facility] LIPID PROFILEon 12-03-2021 Cholesterol [Mass/Vol] 118 mg/dL Low 120-200 [facility] Comment on above: Order Comment: No: D o not add to previous draw Result Comment: CHOL ESTEROL REFERENCE RANGE:20 YEARS AND OLDER CARDIOVASCULAR RISKLess than 200 mg/dl Low Vpen544 to 239 mg/dl Borderline Mftn709 mg/dl and greater High Risk Performed By: #### 3 1569, 00141, 60420, 54535 ####[facility] Cholesterol in HDL [Mass/Vol] 30 mg/dL Normal 23-92 [facility] Comment on above: Order Comment: No: D o not add to previous draw Result Comment: Slig ht variation in normal range could be due to gender and/or age.HDL CHOLESTEROL REFERENCE RANGE:20 years and older Cardiovascular Risk> or =60 mg/dL [id number] TO 59 mg/dL Low Risk<40 mg/dL High Risk Performed By: #### 3 1569, 92744, 48001, 05880 ####[facility] [place] [address], [facility] Cholesterol in LDL [Mass/Vol] 71 mg/dL Normal 0-130 [facility] Comment on above: Order Comment: No: D o not add to previous draw Result Comment: LDL IS A CALCULATIONLDL IS ONLY VALID IF THE TRIG IS LESS THAN 400. Performed By: #### 3 1569, 70830, 79361, 28953 ####[facility] [facility] [address], [facility] Cholesterol.total/Cho lesterol in HDL [Mass ratio] 3.9 {ratio} Normal .0-4.5 [facility] Comment on above: Order Comment: No: D o not add to previous draw Performed By: #### 3 1569, 96047, 80869, 27237 ####[facility] [facility] [address], [facility] NON-HDL CHOLESTEROL 88 mg/dL Normal [facility] Comment on above: Order Comment: No: D o not add to previous draw Performed By: #### 3 1569, 20997, 29292, 22384 ####[facility] [facility] [address], [facility] Triglyceride [Mass/Vol] 86 mg/dL Normal 40-149 [facility] Comment on above: Order Comment: No: D o not add to previous draw Result Comment: TRIG LYCERIDE REFERENCE RANGE:20 YEARS AND OLDER CARDIOVASCULAR RISKLESS THAN 150 mg/dl LOW [id number] TO 199 mg/dl BORDERLINE [id number] mg/dl AND GREATER HIGH RISK Performed By: #### 3 1569, 78435, 46807, 67033 ####[facility] [place] [address], [place] VLDL CHOL 17 mg/dL Normal 0-40 [facility] Comment on above: Order Comment: No: D o not add to previous draw Performed By: #### 3 1569, 91086, 06578, 29057 ####[facility] [place] [address], [place] POC GLUCOSE LABon 12-03-2021 Glucose [Mass/Vol] 154 mg/dL High 70-100 [facility] Comment on above: Performed By: #### 8 5499 ####[facility] [place] [address], [place] Glucose [Mass/Vol] 155 mg/dL High 70-100 [facility] Comment on above: Performed By: #### 8 5499 ####[facility] [place] [address], [place] Glucose [Mass/Vol] 143 mg/dL High 70-100 [facility] Comment on above: Performed By: #### 8 5499 ####[facility] [place] [address], [place] Glucose [Mass/Vol] 158 mg/dL High 70-100 [facility] Comment on above: Performed By: #### 8 5499 ####[facility] [place] [address], [place] PROTHROMBIN TIMEon INR Coag (PPP) [Relative time] 1.18 {INR} High 0.91-1.16 [facility] Comment on above: Order Comment: No: D o not add to previous draw Result Comment: ACCC P RECOMMENDED INR FOR WARFARIN THERAPY CONDITION INRPROPHYLAXIS OF VENOUS THROMBOSIS 2-3(HIGH-RISK SURGERY)TREATMENT OF VENOUS THROMBOSIS 2-3TREATMENT OF PULMONARY EMBOLISM 2-3PREVENTION OF SYSTEMIC EMBOLISM: 2-3 ACUTE MYOCARDIAL INFARCTION TISSUE HEART VALVES VALVULAR HEART DISEASE ATRIAL FIBRILLATION RECURRENT SYSTEMIC EMBOLISMMECHANICAL HEART VALVE 2.5-3.5 FROM: ORAL ANTICOAGULANTS. MECHANISM OF ACTION, CLINICALEFFECTIVENESS, AND OPTIMAL THERAPEUTIC RANGE. [id number]. Performed By: #### 5 7307, 41584 ####[facility] PT Coag (PPP) [Time] 15.0 s High 12.3-14.8 [facility] Comment on above: Order Comment: No: D o not add to previous draw Result Comment: ALL RESULTS MUST BE INTERPRETED WITH RESPECT TO BLOOD DRAWING ARTIFACTOR DILUTION ERROR OF ANTICOAGULANT AT THE TIME OF SAMPLING. Performed By: #### 5 7307, 71849 ####[facility] [facility].[address] TIBIA FIBULA LEFTon 12-04-19 22 TIBIA FIBULA LEFT Normal [facility] Comment on above: Order Comment: Infec tion TROPONIN-Ion 12-03-2021 Troponin I.cardiac [Mass/Vol] 0.00 ng/mL Normal 0.00-0.04 [facility] Comment on above: Order Comment: No: D o not add to previous draw Result Comment: REFE RENCE RANGES: 0.00 - 0.04 ng/ml NORMAL 0.05 - 0.50 ng/ml INDETERMINATE > 0.50 ng/ml CONSISTENT WITH AN M.I. Performed By: #### 3 1569, 82833, 85698, 35972 ####[facility] [facility].[address] TSH3 WITH REFLEX FT4on 12-03 TSH 3RD GENERATION 1.25 uIU/mL Normal 0.34-5.60 [facility] Comment on above: Order Comment: No: D o not add to previous draw Performed By: #### 3 1569, 84594, 58760, 26996 ####[facility] [place] [address], [facility] CHEMISTRYOrdered By: SYSTEM SYSTEM on 12-02-2021 Vancomycin trough [Moles/Vol] 24 microgram/mL Invalid Interpretation Code 10 - 20 mcg/mL [facility] Comment on above: Result Comment: Crit ical Result verified by repeat analysis\Critical Result S_VANC_T:24.0 Called to EHSAN MONAHAN AT 2N by HANDY LOVETT And Read Back For Confirmation at: 12/02/2021 20:21:20 Vancomycin peak [Moles/Vol] 52 microgram/mL Invalid Interpretation Code 20 - 40 mcg/mL [facility] Remisol Comment on above: Result Comment: Resu lt verified by dilution\Critical Result S_VANC_R:52.0 Called to LYNDON COLLINS AT 2N by ISAAC HERRING And Read Back For Confirmation at: 12/02/2021 13:51:03 Albumin [Mass/Vol] 2.7 g/dL Low 3.3 - 5.0 gm/dL [facility] Albumin/Globulin [Mass ratio] 0.8 {ratio} Low 1.1 - 2.2 [facility] ALP [Catalytic activity/Vol] 42 [iU]/d Normal 21 - 98 Int._Unit/L [facility] Rem[facility] ALT No additional P-5'-P [Catalytic activity/Vol] 16 [iU]/d Normal 6 - 46 Int._Unit/L [facility] Anion gap [Moles/Vol] 11 mmol/L Normal 6 - 16 mEq/L [facility] AST [Catalytic activity/Vol] 19 [iU]/d Normal 5 - 43 Int._Unit/L [facility] Bilirubin [Mass/Vol] 0.8 mg/dL Normal 0.0 - 1 .1 mg/dL [facility] Bilirubin.direct [Mass/Vol] 0.1 mg/dL Normal 0.1 - 0.4 mg/dL [facility] Bilirubin.indirect [Mass or moles/Vol] 0.7 mg/dL Normal 0.1 - 0.9 mg/dL [facility] Calcium [Mass/Vol] 8.3 mg/dL Low 8.9 - 11. 1 mg/dL [facility] Chloride [Moles/Vol] 99 mmol/L Low 101 - 1 11 mmol/L [facility] CO2 [Moles/Vol] 28 mmol/L Normal 21 - 31 mmol/L [facility] Creatinine [Mass/Vol] 1.2 mg/dL Normal 0.5 - 1.3 mg/dL [facility] GFR/1.73 sq M.predicted among blacks MDRD (S/P/Bld) [Vol rate/Area] mL/min/1.73 m2 Normal >=59mL/min/1 .73 m2 [facility] [place] Chem S GFR/1.73 sq M.predicted among non-blacks MDRD (S/P/Bld) [Vol rate/Area] mL/min/1.73 m2 Normal >=59mL/min/1 .73 m2 [facility] [place] Chem S Globulin (S) [Mass/Vol] 3.5 g/dL Normal 1.4 - 4.0 gm/dL [facility] Glucose [Mass/Vol] 188 mg/dL Normal 55 - 199 mg/dL [facility] Magnesium [Mass/Vol] 1.6 mg/dL Normal 1.3 - 2 .4 mg/dL [facility] Potassium [Moles/Vol] 3.3 mmol/L Low 3.5 - 5.3 mmol/L [facility] Protein [Mass/Vol] 6.2 g/dL Normal 6.0 - 7.8 gm/dL [facility] Sodium [Moles/Vol] 135 mmol/L Normal 135 - 145 mmol/L [facility] Urea nitrogen [Mass/Vol] 29 mg/dL High 5 - 21 mg/dL [facility] Urea nitrogen/Creatinine [Mass ratio] 24 mg/mg High 10 - 20 [facility] CHEMISTRYOrdered By: Arnie ROP User on 12-02-2021 Glucose [Mass/Vol] 116 mg/dL High 55 - 99 mg/dL [facility] [place] POC Subsection Comment on above: Result Comment: Mary flores RN/ POC Device SN [id number] Invalid Interpretation Code [facility] [place] POC Subsection POC User ID [id number] Invalid Interpretation Code [facility] POC Subsection POC Username GOOD, BRIDGER Invalid Interpretation Code [facility] POC Subsection Glucose [Mass/Vol] 188 mg/dL High 55 - 99 mg/dL [facility] POC Subsection Comment on above: Result Comment: Mary flores RN/ POC Device SN [id number] Invalid Interpretation Code [facility] POC Subsection POC User ID [id number] Invalid Interpretation Code [facility] POC Subsection POC Username GOOD, BRIDGER Invalid Interpretation Code [facility] POC Subsection Glucose [Mass/Vol] 175 mg/dL High 55 - 99 mg/dL [facility] POC Subsection Comment on above: Result Comment: Mary flores RN/ POC Device SN [id number] Invalid Interpretation Code [facility] POC Subsection POC User ID [id number] Invalid Interpretation Code [facility] POC Subsection POC Username GOOD, BRIDGER Invalid Interpretation Code [facility] POC Subsection HEMATOLOGYOrdered By: Alecia Portillo on 12-02-2021 Erythrocyte distribution width (RBC) [Ratio] 15.4 % High 10.9 - 14.2 % [facility] Hematocrit (Bld) [Volume fraction] 27.0 % Low 37.7 - 49.0 % [facility] Hemoglobin (Bld) [Mass/Vol] 9.2 g/dL Low 13.5 - 17.5 gm/dL [facility] MCH (RBC) [Entitic mass] 27.1 pg Normal 27.0 - 34.0 pg [facility] MCHC (RBC) [Mass/Vol] 33.9 g/dL Normal 31.4 - 36.0 gm/dL [facility] MCV (RBC) [Entitic vol] 80.0 fL Normal 80.0 - 100.0 fL [facility] Platelet mean volume (Bld) [Entitic vol] 9.7 fL Normal 6.4 - 10.8 fL [facility] Platelets (Bld) [#/Vol] 183.0 E9/L Normal 150.0 - 500.0 E9/L [facility] RBC (Bld) [#/Vol] 3.4 E12/L Low 4.3 - 5.9 E12/L [facility] WBC corrected for nucl RBC Auto (Bld) [#/Vol] 6.8 E9/L Normal 4.0 - 11.0 E9/L [facility] CHEMISTRYOrdered By: SYSTEM SYSTEM on 12-01-2021 Anion gap [Moles/Vol] 7 mmol/L Normal 6 - 16 mEq/L [facility] Calcium [Mass/Vol] 8.0 mg/dL Low 8.9 - 11. 1 mg/dL [facility] Chloride [Moles/Vol] 105 mmol/L Normal 101 - 1 11 mmol/L [facility] CO2 [Moles/Vol] 27 mmol/L Normal 21 - 31 mmol/L [facility] Creatinine [Mass/Vol] 0.7 mg/dL Normal 0.5 - 1.3 mg/dL [facility] CRP [Mass/Vol] 11.6 mg/dL High <=1.9mg/dL [facility] GFR/1.73 sq M.predicted among blacks MDRD (S/P/Bld) [Vol rate/Area] mL/min/1.73 m2 Normal >=59mL/min/1 .73 m2 [facility] Chem S GFR/1.73 sq M.predicted among non-blacks MDRD (S/P/Bld) [Vol rate/Area] mL/min/1.73 m2 Normal >=59mL/min/1 .73 m2 [facility] S Glucose [Mass/Vol] 153 mg/dL Normal 55 - 199 mg/dL [facility] Potassium [Moles/Vol] 3.8 mmol/L Normal 3.5 - 5.3 mmol/L [facility] Sodium [Moles/Vol] 135 mmol/L Normal 135 - 145 mmol/L [facility] TSH Qn 1.53 m[IU]/L Normal 0.34 - 5.60 mcIU/mL [facility] Urea nitrogen [Mass/Vol] 18 mg/dL Normal 5 - 21 mg/dL [facility] Urea nitrogen/Creatinine [Mass ratio] 26 mg/mg High 10 - 20 [facility] HEMATOLOGYOrdered By: SYSTEM SYSTEM on 12-01-2021 Basophils/100 WBC (Bld) 0.3 % Normal 0.0 - 2.0 % [facility] Basophils/Leukocytes Auto (Bld) [Pure # fraction] 0.0 E9/L Normal 0.0 - 0.2 E9/L [facility] Eosinophils/100 WBC (Bld) 0.1 % Normal 0.0 - 8.0 % [facility] Eosinophils/Leukocyte s Auto (Bld) [Pure # fraction] 0.0 E9/L Normal 0.0 - 0.5 E9/L [facility] Lymphocytes/100 WBC (Bld) 12.7 % Low 14.0 - 50.0 % [facility] Lymphocytes/Leukocyte s Auto (Bld) [Pure # fraction] 1.2 E9/L Normal 1.0 - 4.0 E9/L [facility] Monocytes/100 WBC (Bld) 14.1 % High 4.0 - 14.0 % [facility] Monocytes/Leukocytes Auto (Bld) [Pure # fraction] 1.3 E9/L High 0.2 - 1.0 E9/L [facility] Neutrophils/100 WBC (Bld) 72.8 % Normal 36.0 - 75.0 % [facility] Neutrophils/Leukocyte s Auto (Bld) [Pure # fraction] 6.6 E9/L Normal 2.0 - 7.5 E9/L [facility] HEMATOLOGYOrdered By: Franci Lane on 12-01-2021 Erythrocyte distribution width (RBC) [Ratio] 15.2 % High 10.9 - 14.2 % [facility] Hematocrit (Bld) [Volume fraction] 27.8 % Low 37.7 - 49.0 % [facility] Hemoglobin (Bld) [Mass/Vol] 9.2 g/dL Low 13.5 - 17.5 gm/dL [facility] MCH (RBC) [Entitic mass] 26.5 pg Low 27.0 - 34.0 pg [facility] MCHC (RBC) [Mass/Vol] 33.0 g/dL Normal 31.4 - 36.0 gm/dL [facility] MCV (RBC) [Entitic vol] 80.4 fL Normal 80.0 - 100.0 fL [facility] Platelet mean volume (Bld) [Entitic vol] 9.9 fL Normal 6.4 - 10.8 fL [facility] Platelets (Bld) [#/Vol] 163.0 E9/L Normal 150.0 - 500.0 E9/L [facility] RBC (Bld) [#/Vol] 3.5 E12/L Low 4.3 - 5.9 E12/L [facility] WBC corrected for nucl RBC Auto (Bld) [#/Vol] 9.1 E9/L Normal 4.0 - 11.0 E9/L [facility] URINALYSISOrdered By: Isaac Herring on 12-01-2021 Bilirubin Ql (U) Negative (12/01/21 6:55 AM) Normal Negative [facility]A Auto SS Clarity (U) Clear (12/01/21 6:55 AM) Normal Clear [facility]A Auto SS Color (U) Yellow (12/01/21 6:55 AM) Normal Yellow [facility]A Auto SS Epithelial cells.squamous LM.HPF (Urine sed) [#/Area] 0-2 /HPF Normal 0-2/HPF [facility]A Auto SS Fine Granular Casts LM Ql (Urine sed) 0-3 (12/01/21 6:55 AM) Normal [facility] SS Glucose Test strip (U) [Mass/Vol] Negative (12/01/21 6:55 AM) Normal Negative [facility]A Auto SS Hemoglobin Ql (U) 2+ *ABN* (12/01/21 6:55 AM) Invalid Interpretation Code Negative [facility] Ketones (U) [Mass/Vol] Negative (12/01/21 6:55 AM) Normal Negative [facility] UA Auto SS [place].plasma/[place]ith[place] m.RBC (Bld) [Mass ratio] 4-20 /HPF Normal 0-3/HPF [facility] SS Nitrite Ql (U) Negative (12/01/21 6:55 AM) Normal Negative [facility] Auto SS pH (U) 5.5 *NA* (12/01/21 6:55 AM) Invalid Interpretation Code 5.0 - 9.0 [facility] SS Protein (U) [Mass/Vol] 2+ *ABN* (12/01/21 6:55 AM) Invalid Interpretation Code Negative [facility] SS Specific gravity (U) [Rel density] >=1.030 *NA* (12/01/21 6:55 AM) Invalid Interpretation Code 1.005 - 1.030 [facility] UA Spec Desc Clean Catch (12/01/21 6:55 AM) Normal [facility]A Auto SS Urobilinogen Qn (U) [id number] {Tu'U}/dL Normal 0.0 - 1.0 EU/dL [facility] WBC Auto Ql (U) Negative (12/01/21 6:55 AM) Normal Negative [facility] UA Auto SS WBC LM.HPF (Urine sed) [#/Area] 0-5 /HPF Normal 0-5/HPF [facility]A Auto SS CHEMISTRYOrdered By: SYSTEM SYSTEM on 11-30-2021 Lactate [Mass/Vol] 0.9 mmol/L Normal 0.5 - 2.2 mmol/L [facility] Albumin [Mass/Vol] 2.8 g/dL Low 3.3 - 5.0 gm/dL [facility] Albumin/Globulin [Mass ratio] 0.9 {ratio} Low 1.1 - 2.2 [facility] ALP [Catalytic activity/Vol] 43 [iU]/d Normal 21 - 98 Int._Unit/L [facility] ALT No additional P-5'-P [Catalytic activity/Vol] 18 [iU]/d Normal 6 - 46 Int._Unit/L [facility] Anion gap [Moles/Vol] 8 mmol/L Normal 6 - 16 mEq/L [facility] AST [Catalytic activity/Vol] 21 [iU]/d Normal 5 - 43 Int._Unit/L [facility] Bilirubin [Mass/Vol] 0.6 mg/dL Normal 0.0 - 1 .1 mg/dL [facility] Calcium [Mass/Vol] 8.1 mg/dL Low 8.9 - 11. 1 mg/dL [facility] Chloride [Moles/Vol] 102 mmol/L Normal 101 - 1 11 mmol/L [facility] CO2 [Moles/Vol] 27 mmol/L Normal 21 - 31 mmol/L [facility] Creatinine [Mass/Vol] 0.9 mg/dL Normal 0.5 - 1.3 mg/dL [facility] CRP [Mass/Vol] 9.8 mg/dL High <=1.9mg/dL [facility] GFR/1.73 sq M.predicted among blacks MDRD (S/P/Bld) [Vol rate/Area] mL/min/1.73 m2 Normal >=59mL/min/1 .73 m2 [facility] Chem S GFR/1.73 sq M.predicted among non-blacks MDRD (S/P/Bld) [Vol rate/Area] mL/min/1.73 m2 Normal >=59mL/min/1 .73 m2 [facility] [place] Chem S Globulin (S) [Mass/Vol] 3.2 g/dL Normal 1.4 - 4.0 gm/dL [facility] Glucose [Mass/Vol] 177 mg/dL Normal 55 - 199 mg/dL [facility] Lactate [Mass/Vol] 1.1 mmol/L Normal 0.5 - 2.2 mmol/L [facility] Potassium [Moles/Vol] 3.9 mmol/L Normal 3.5 - 5.3 mmol/L [facility] Protein [Mass/Vol] 6.0 g/dL Normal 6.0 - 7.8 gm/dL [facility] Sodium [Moles/Vol] 133 mmol/L Low 135 - 145 mmol/L [facility] Troponin I.cardiac [Mass/Vol] 9.00 pg/mL Low 15.90 - 38.40 pg/mL [facility] Urea nitrogen [Mass/Vol] 24 mg/dL High 5 - 21 mg/dL [facility] Urea nitrogen/Creatinine [Mass ratio] 27 mg/mg High 10 - 20 [facility] COAGULATIONOrdered By: Kerri Manley on 11-30-2021 aPTT Coag (PPP) [Time] 34.7 s Normal 25.1 - 36.5 second(s) [facility] Auto Coag INR Coag (PPP) [Relative time] 1.4 {INR} Invalid Interpretation Code [facility] Auto Coag PT Coag (PPP) [Time] 16.1 s High 10.2 - 12.9 second(s) [facility] Auto Coag HEMATOLOGYOrdered By: SYSTEM SYSTEM on 11-30-2021 Basophils/100 WBC (Bld) 0.4 % Normal 0.0 - 2.0 % [facility] Basophils/Leukocytes Auto (Bld) [Pure # fraction] 0.0 E9/L Normal 0.0 - 0.2 E9/L [facility] Eosinophils/100 WBC (Bld) 0.2 % Normal 0.0 - 8.0 % [facility] Eosinophils/Leukocyte s Auto (Bld) [Pure # fraction] 0.0 E9/L Normal 0.0 - 0.5 E9/L [facility] Lymphocytes/100 WBC (Bld) 16.6 % Normal 14.0 - 50.0 % [facility] Lymphocytes/Leukocyte s Auto (Bld) [Pure # fraction] 1.1 E9/L Normal 1.0 - 4.0 E9/L [facility] Monocytes/100 WBC (Bld) 13.9 % Normal 4.0 - 14.0 % [facility] Monocytes/Leukocytes Auto (Bld) [Pure # fraction] 0.9 E9/L Normal 0.2 - 1.0 E9/L [facility] Neutrophils/100 WBC (Bld) 68.9 % Normal 36.0 - 75.0 % [facility] Neutrophils/Leukocyte s Auto (Bld) [Pure # fraction] 4.7 E9/L Normal 2.0 - 7.5 E9/L [facility] HEMATOLOGYOrdered By: Franci Lane on 11-30-2021 Erythrocyte distribution width (RBC) [Ratio] 15.5 % High 10.9 - 14.2 % [facility] Hematocrit (Bld) [Volume fraction] 27.8 % Low 37.7 - 49.0 % [facility] Hemoglobin (Bld) [Mass/Vol] 9.0 g/dL Low 13.5 - 17.5 gm/dL [facility] MCH (RBC) [Entitic mass] 26.3 pg Low 27.0 - 34.0 pg [facility] MCHC (RBC) [Mass/Vol] 32.3 g/dL Normal 31.4 - 36.0 gm/dL [facility] MCV (RBC) [Entitic vol] 81.5 fL Normal 80.0 - 100.0 fL [facility] Platelet mean volume (Bld) [Entitic vol] 9.4 fL Normal 6.4 - 10.8 fL [facility] Platelets (Bld) [#/Vol] 155.0 E9/L Normal 150.0 - 500.0 E9/L [facility] RBC (Bld) [#/Vol] 3.4 E12/L Low 4.3 - 5.9 E12/L [facility] WBC corrected for nucl RBC Auto (Bld) [#/Vol] 6.8 E9/L Normal 4.0 - 11.0 E9/L [facility] [place] No Panel Informationon 11-30 Blood Culture Charcoal No growth at 2 days. Final to follow at 7 days. [facility] Blood Culture Charcoal No growth at 2 days. Final to follow at 7 days. [facility] PROF CHEM 8 (BAS METB)on Anion gap [Moles/Vol] 10.9 mmol/L Normal [facility] Comment on above: Performed By: #### B MP #### [facility] [address] [address] [address] Terrence Gunderson Calcium [Mass/Vol] 8.7 mg/dL Normal 8.5-10.1 [facility] Comment on above: Performed By: #### B MP #### [facility] [address] [address] [address] Terrence Gunderson Chloride [Moles/Vol] 104 mmol/L Normal 98-107 [facility] Comment on above: Performed By: #### B MP #### [facility] [address] [address] [address] Terrence Gunderson CO2 [Moles/Vol] 28.3 mmol/L Normal 21.0-32.0 [facility] Comment on above: Performed By: #### B MP #### [facility] [address] [address] [address] Terrence Gunderson Creatinine [Mass/Vol] 0.83 mg/dL Normal 0.70-1.30 [facility] Comment on above: Performed By: #### B MP #### [facility] [address] [address] [address] Terrence Gunderson EGFR-AF BRUNEIAN >60 Normal >=60 [facility] Comment on above: Performed By: #### B MP #### [facility] [address] [address] [address] Terrence Gunderson EGFR-NON AF BRUNEIAN >60 Normal >=60 [facility] Comment on above: Performed By: #### B MP #### [facility] [address] [address] [address] Terrence Gunderson Glucose [Mass/Vol] 133 mg/dL Critically high 74-106 [facility] Comment on above: Performed By: #### B MP #### [facility] [address] [address] [address] Terrence Gunderson Potassium [Moles/Vol] 4.2 mmol/L Normal 3.5-5.1 [facility] Comment on above: Performed By: #### B MP #### [facility] [address] [address] [address] Terrence Gunderson Sodium [Moles/Vol] 139 mmol/L Normal 136-145 [facility] Comment on above: Performed By: #### B MP #### [facility] [address] [address] [address] Terrence Gunderson Urea nitrogen [Mass/Vol] 21.0 mg/dL Critically high 7.0-18.0 [facility] Comment on above: Performed By: #### B MP #### [facility] [address] [address] [address] Terrence Gunderson Urea nitrogen/Creatinine [Mass ratio] 25.3 mg/mg Normal [facility] Comment on above: Performed By: #### B MP #### [facility] [address] [address] [address] Terrence Gunderson POC GLUCOSE LABon 10-30-2021 Glucose [Mass/Vol] 115 mg/dL High 70-100 [facility] Comment on above: Performed By: #### 8 [id number] ####[facility] [place] [address], [facility] BASIC METABOLIC PANELon 10-10 Calcium [Mass/Vol] 8.4 mg/dL Low 8.6-10.3 [facility] Comment on above: Order Comment: No: D o not add to previous draw Performed By: #### 1 0070, [id number] ####[facility] [place] [address], [place] Chloride [Moles/Vol] 101 mmol/L Normal 98-107 [facility] Comment on above: Order Comment: No: D o not add to previous draw Performed By: #### 1 69, [id number] ####[facility] [place] [address], [facility] CO2 [Moles/Vol] 26 mmol/L Normal 21-31 [facility] Comment on above: Order Comment: No: D o not add to previous draw Performed By: #### 1 69, 15353 ####[facility] [facility] [place] [address], [facility] Creatinine [Mass/Vol] 0.80 mg/dL Normal 0.70-1.30 [facility] Comment on above: Order Comment: No: D o not add to previous draw Performed By: #### 1 69, [id number] ####[facility] [facility] [place] [address], [facility] GFR/1.73 sq M.predicted among blacks MDRD (S/P/Bld) [Vol rate/Area] mL/min/{1.73_m2} Normal >60 [facility] Comment on above: Order Comment: No: D o not add to previous draw Performed By: #### 1 69, [id number] ####[facility] [facility] [place] [address], [facility] GFR/1.73 sq M.predicted among non-blacks MDRD (S/P/Bld) [Vol rate/Area] mL/min/{1.73_m2} Normal >60 [facility] Comment on above: Order Comment: No: D o not add to previous draw Performed By: #### 1 69, [id number] ####[facility] [place] [address], [place] Glucose [Mass/Vol] 198 mg/dL High 70-100 [facility] Comment on above: Order Comment: No: D o not add to previous draw Performed By: #### 1 0070, 05449 ####[facility] [place] [address], [facility] Potassium [Moles/Vol] 3.9 mmol/L Normal 3.5-5.1 [facility] Comment on above: Order Comment: No: D o not add to previous draw Performed By: #### 1 69, 41906 ####[facility] [place] [address], [facility] Sodium [Moles/Vol] 136 mmol/L Normal 136-145 [facility] Comment on above: Order Comment: No: D o not add to previous draw Performed By: #### 1 69, 27760 ####[facility] [facility] Urea nitrogen [Mass/Vol] 36 mg/dL High 7-25 [facility] Comment on above: Order Comment: No: D o not add to previous draw Performed By: #### 1 69, [id number] ####[facility] [facility].[address] CBC COMPLETE BLOOD COUNTon 10-29-2021 Erythrocyte distribution width (RBC) [Ratio] 13.8 % Normal 11.5-15.0 [facility] Comment on above: Order Comment: No: D o not add to previous draw Performed By: #### 5 0608 ####[facility] [facility] Hematocrit (Bld) [Volume fraction] 34.7 % Low 39.0-50.0 [facility] Comment on above: Order Comment: No: D o not add to previous draw Performed By: #### 5 0608 ####[facility] [facility] [place] [place] [address], [facility] Hemoglobin (Bld) [Mass/Vol] 11.0 g/dL Low 13.0-17.0 [facility] Comment on above: Order Comment: No: D o not add to previous draw Performed By: #### 5 0608 ####[facility] MCH (RBC) [Entitic mass] 27.4 pg Normal 27.0-33.0 [facility] Comment on above: Order Comment: No: D o not add to previous draw Performed By: #### 5 0608 ####[facility] MCHC (RBC) [Mass/Vol] 31.7 g/dL Low 32.0-35.0 [facility] Comment on above: Order Comment: No: D o not add to previous draw Performed By: #### 5 0608 ####[facility] MCV (RBC) [Entitic vol] 86.3 fL Normal 82.0-98.0 [facility] Comment on above: Order Comment: No: D o not add to previous draw Performed By: #### 5 0608 ####[facility] Nucleated RBC/100 WBC (Bld) [Ratio] 0 % Normal 0-0 [facility] Comment on above: Order Comment: No: D o not add to previous draw Performed By: #### 5 0608 ####[facility] PLAT CNT 223 10*3/uL Normal 150-400 [facility] Comment on above: Order Comment: No: D o not add to previous draw Performed By: #### 5 0608 ####[facility] [place] [address] RBC (Bld) [#/Vol] 4.02 10*6/uL Low 4.20-5.70 [facility] Comment on above: Order Comment: No: D o not add to previous draw Performed By: #### 5 0608 ####[facility] [place] [address], [facility] WBC (Bld) [#/Vol] 6.29 10*3/uL Normal 4.00-10.60 [facility] Comment on above: Order Comment: No: D o not add to previous draw Performed By: #### 5 0608 ####[facility] [place] [address], [place] MAGNESIUM BLOODon 10-29-2021 Magnesium [Mass/Vol] 2.4 mg/dL Normal 1.9-2.7 [facility] Comment on above: Order Comment: No: D o not add to previous draw Performed By: #### 1 0070, 66712 ####[facility] [place] [address], [place] POC GLUCOSE LABon 10-29-2021 Glucose [Mass/Vol] 120 mg/dL High 70-100 [facility] Comment on above: Performed By: #### 8 5499 ####[facility] [place] [address], [place] Glucose [Mass/Vol] 188 mg/dL High 70-100 [facility] Comment on above: Performed By: #### 8 5499 ####[facility] [place] [address], [place] Glucose [Mass/Vol] 173 mg/dL High 70-100 [facility] Comment on above: Performed By: #### 8 5499 ####[facility] [place] [address], [place] Glucose [Mass/Vol] 149 mg/dL High 70-100 [facility] Comment on above: Performed By: #### 8 5499 ####[facility] [place] [address], [place] BASIC METABOLIC PANELon 10-10 Calcium [Mass/Vol] 8.7 mg/dL Normal 8.6-10.3 [facility] Comment on above: Order Comment: No: D o not add to previous draw Performed By: #### 0 0071, 73523 ####[facility] [place] [address], [facility] Chloride [Moles/Vol] 100 mmol/L Normal 98-107 [facility] Comment on above: Order Comment: No: D o not add to previous draw Performed By: #### 0 0071, 95632 ####[facility] [place] [address], [place] CO2 [Moles/Vol] 26 mmol/L Normal 21-31 [facility] Comment on above: Order Comment: No: D o not add to previous draw Performed By: #### 0 0071, 79911 ####[facility] [place] [address], [place] Creatinine [Mass/Vol] 0.97 mg/dL Normal 0.70-1.30 [facility] Comment on above: Order Comment: No: D o not add to previous draw Performed By: #### 0 0071, 67091 ####[facility] [place] [address], [place] GFR/1.73 sq M.predicted among blacks MDRD (S/P/Bld) [Vol rate/Area] mL/min/{1.73_m2} Normal >60 [facility] Comment on above: Order Comment: No: D o not add to previous draw Performed By: #### 0 0071, 30686 ####[facility] [place] [address], [place] GFR/1.73 sq M.predicted among non-blacks MDRD (S/P/Bld) [Vol rate/Area] mL/min/{1.73_m2} Normal >60 [facility] Comment on above: Order Comment: No: D o not add to previous draw Performed By: #### 0 0071, 71240 ####[facility] [place] [address], [facility] Glucose [Mass/Vol] 242 mg/dL High 70-100 [facility] Comment on above: Order Comment: No: D o not add to previous draw Performed By: #### 0 0071, 78566 ####[facility] [place] [address], [facility] Potassium [Moles/Vol] 4.0 mmol/L Normal 3.5-5.1 [facility] Comment on above: Order Comment: No: D o not add to previous draw Performed By: #### 0 0071, 95501 ####[facility] [place] [address], [facility] Sodium [Moles/Vol] 136 mmol/L Normal 136-145 [facility] Comment on above: Order Comment: No: D o not add to previous draw Performed By: #### 0 0071, 95949 ####[facility] [place] [address], [facility] Urea nitrogen [Mass/Vol] 40 mg/dL High 7-25 [facility] Comment on above: Order Comment: No: D o not add to previous draw Performed By: #### 0 [id number], [id number] ####[facility] [facility] [place] [place] [address], [facility] CBC COMPLETE BLOOD COUNTon 0 10-28-2021 Erythrocyte distribution width (RBC) [Ratio] 13.9 % Normal 11.5-15.0 [facility] Comment on above: Order Comment: No: D o not add to previous draw Performed By: #### [id number] ####[facility] [id number], [facility] Hematocrit (Bld) [Volume fraction] 38.5 % Low 39.0-50.0 [facility] Comment on above: Order Comment: No: D o not add to previous draw Performed By: #### [id number] ####[facility] Hemoglobin (Bld) [Mass/Vol] 12.3 g/dL Low 13.0-17.0 [facility] Comment on above: Order Comment: No: D o not add to previous draw Performed By: #### [id number] ####[facility] MCH (RBC) [Entitic mass] 27.3 pg Normal 27.0-33.0 [facility] Comment on above: Order Comment: No: D o not add to previous draw Performed By: #### [id number] ####[facility] MCHC (RBC) [Mass/Vol] 31.9 g/dL Low 32.0-35.0 [facility] Comment on above: Order Comment: No: D o not add to previous draw Performed By: #### 5 0608 ####[address] MCV (RBC) [Entitic vol] 85.4 fL Normal 82.0-98.0 [facility] Comment on above: Order Comment: No: D o not add to previous draw Performed By: #### 5 0608 ####[place] [address] Nucleated RBC/100 WBC (Bld) [Ratio] 0 % Normal 0-0 [facility] Comment on above: Order Comment: No: D o not add to previous draw Performed By: #### 5 0608 ####[address] PLAT CNT 237 10*3/uL Normal 150-400 [facility] Comment on above: Order Comment: No: D o not add to previous draw Performed By: #### 5 0608 ####[facility] [place] [address], [facility] RBC (Bld) [#/Vol] 4.51 10*6/uL Normal 4.20-5.70 [facility] Comment on above: Order Comment: No: D o not add to previous draw Performed By: #### 5 0608 ####[facility] [place] [address], [place] WBC (Bld) [#/Vol] 7.57 10*3/uL Normal 4.00-10.60 [facility] Comment on above: Order Comment: No: D o not add to previous draw Performed By: #### 5 0608 ####[facility] [facility] [place] [address], [facility] MAGNESIUM BLOODon 10-28-2021 Magnesium [Mass/Vol] 2.8 mg/dL High 1.9-2.7 [facility] Comment on above: Order Comment: No: D o not add to previous draw Performed By: #### 0 0071, [id number] ####[facility] [facility] [place] [address], [facility] POC GLUCOSE LABon 10-28-2021 Glucose [Mass/Vol] 249 mg/dL High 70-100 [facility] Comment on above: Performed By: #### 8 5499 ####[facility] [facility] [place] [address], [place] Glucose [Mass/Vol] 192 mg/dL High 70-100 [facility] Comment on above: Performed By: #### 8 5499 ####[facility] [facility] [place] [address], [place] Glucose [Mass/Vol] 200 mg/dL High 70-100 [facility] Comment on above: Performed By: #### 8 5499 ####[facility] [place] [address], [facility] Glucose [Mass/Vol] 132 mg/dL High 70-100 [facility] Comment on above: Performed By: #### 8 5499 ####[facility] [place] [address], [facility] BASIC METABOLIC PANELon 06- Calcium [Mass/Vol] 8.9 mg/dL Normal 8.6-10.3 [facility] Comment on above: Order Comment: No: D o not add to previous draw Performed By: #### 0 0071, 55269 ####[facility] [place] [address], [facility] Chloride [Moles/Vol] 96 mmol/L Low 98-107 [facility] Comment on above: Order Comment: No: D o not add to previous draw Performed By: #### 0 0071, 65105 ####[facility] [place] [address], [facility] CO2 [Moles/Vol] 28 mmol/L Normal 21-31 [facility] Comment on above: Order Comment: No: D o not add to previous draw Performed By: #### 0 0071, 21005 ####[facility] [place] [address], [facility] Creatinine [Mass/Vol] 1.21 mg/dL Normal 0.70-1.30 [facility] Comment on above: Order Comment: No: D o not add to previous draw Performed By: #### 0 0071, 29702 ####[facility] [facility] [place] [place] [address], [facility] GFR/1.73 sq M.predicted among blacks MDRD (S/P/Bld) [Vol rate/Area] mL/min/{1.73_m2} Normal >60 [facility] Comment on above: Order Comment: No: D o not add to previous draw Performed By: #### 0 0071, 95330 ####[facility] [place] [address], [facility] GFR/1.73 sq M.predicted among non-blacks MDRD (S/P/Bld) [Vol rate/Area] mL/min/{1.73_m2} Normal >60 [facility] Comment on above: Order Comment: No: D o not add to previous draw Performed By: #### 0 0071, 18324 ####[facility] [facility] [place] [place] [address], [facility] Glucose [Mass/Vol] 186 mg/dL High 70-100 [facility] Comment on above: Order Comment: No: D o not add to previous draw Performed By: #### 0 0071, 03752 ####[facility] [place] [address], [facility] Potassium [Moles/Vol] 3.6 mmol/L Normal 3.5-5.1 [facility] Comment on above: Order Comment: No: D o not add to previous draw Performed By: #### 0 0071, 83555 ####[facility] [place] [address], [facility] Sodium [Moles/Vol] 133 mmol/L Low 136-145 [facility] Comment on above: Order Comment: No: D o not add to previous draw Performed By: #### 0 0071, 98341 ####[place] [address] [facility] [place] [address], [facility] Urea nitrogen [Mass/Vol] 50 mg/dL High 7-25 [facility] Comment on above: Order Comment: No: D o not add to previous draw Performed By: #### 0 0071, 08813 ####[place] [address] [facility].[address] CBC COMPLETE BLOOD COUNTon 0 - Erythrocyte distribution width (RBC) [Ratio] 13.8 % Normal 11.5-15.0 [facility] Comment on above: Order Comment: No: D o not add to previous draw Performed By: #### 5 0608 ####[facility] Hematocrit (Bld) [Volume fraction] 38.7 % Low 39.0-50.0 [facility] Comment on above: Order Comment: No: D o not add to previous draw Performed By: #### 5 0608 ####[facility] [place] [address] Hemoglobin (Bld) [Mass/Vol] 12.6 g/dL Low 13.0-17.0 [facility] Comment on above: Order Comment: No: D o not add to previous draw Performed By: #### 5 0608 ####[address] MCH (RBC) [Entitic mass] 27.1 pg Normal 27.0-33.0 [facility] Comment on above: Order Comment: No: D o not add to previous draw Performed By: #### 5 0608 ####[place] [address] MCHC (RBC) [Mass/Vol] 32.6 g/dL Normal 32.0-35.0 [facility] Comment on above: Order Comment: No: D o not add to previous draw Performed By: #### 5 0608 ####[address] MCV (RBC) [Entitic vol] 83.2 fL Normal 82.0-98.0 [facility] Comment on above: Order Comment: No: D o not add to previous draw Performed By: #### 5 0608 ####[address] Nucleated RBC/100 WBC (Bld) [Ratio] 0 % Normal 0-0 [facility] Comment on above: Order Comment: No: D o not add to previous draw Performed By: #### 5 0608 ####[facility] [place] [address], [facility] PLAT CNT 241 10*3/uL Normal 150-400 [facility] Comment on above: Order Comment: No: D o not add to previous draw Performed By: #### 5 0608 ####[facility] [place] [address], [facility] RBC (Bld) [#/Vol] 4.65 10*6/uL Normal 4.20-5.70 [facility] Comment on above: Order Comment: No: D o not add to previous draw Performed By: #### 5 0608 ####[facility] [place] [address], [facility] WBC (Bld) [#/Vol] 7.56 10*3/uL Normal 4.00-10.60 [facility] Comment on above: Order Comment: No: D o not add to previous draw Performed By: #### 5 0608 ####[facility] [place] [address], [facility] MAGNESIUM BLOODon 10-27-2021 Magnesium [Mass/Vol] 2.9 mg/dL High 1.9-2.7 [facility] Comment on above: Order Comment: No: D o not add to previous draw Performed By: #### 0 0071, 54155 ####[facility] [place] [address], [facility] POC GLUCOSE LABon 10-27-2021 Glucose [Mass/Vol] 127 mg/dL High 70-100 [facility] Comment on above: Performed By: #### 8 5499 ####[facility] [place] [address], [place] Glucose [Mass/Vol] 185 mg/dL High 70-100 [facility] Comment on above: Performed By: #### 8 5499 ####[facility] [place] [address], [place] Glucose [Mass/Vol] 353 mg/dL High 70-100 [facility] Comment on above: Performed By: #### 8 5499 ####[facility] [place] [address], [place] Glucose [Mass/Vol] 146 mg/dL High 70-100 [facility] Comment on above: Performed By: #### 8 5499 ####[facility] [place] [address], [place] BASIC METABOLIC PANELon 10-09 Calcium [Mass/Vol] 8.6 mg/dL Normal 8.6-10.3 [facility] Comment on above: Order Comment: No: D o not add to previous draw Performed By: #### 1 69, 54787 ####[facility] [place] [address], [place] Chloride [Moles/Vol] 89 mmol/L Low 98-107 [facility] Comment on above: Order Comment: No: D o not add to previous draw Performed By: #### 1 69, 25326 ####[facility] [place] [address], [place] CO2 [Moles/Vol] 33 mmol/L High 21-31 [facility] Comment on above: Order Comment: No: D o not add to previous draw Performed By: #### 1 69, 79640 ####[facility] [place] [address], [place] Creatinine [Mass/Vol] 1.76 mg/dL High 0.70-1.30 [facility] Comment on above: Order Comment: No: D o not add to previous draw Performed By: #### 1 69, 71098 ####[facility] [place] [address], [place] eGFR- 48 ml/min/1.73sq m Abnormal >60 [facility] Comment on above: Order Comment: No: D o not add to previous draw Performed By: #### 1 69, 19538 ####[facility] [place] [address], [facility] eGFR- non- 40 ml/min/1.73sq m Abnormal >60 [facility] Comment on above: Order Comment: No: D o not add to previous draw Performed By: #### 1 69, 82463 ####[facility] [place] [address], [facility] Glucose [Mass/Vol] 191 mg/dL High 70-100 [facility] Comment on above: Order Comment: No: D o not add to previous draw Performed By: #### 1 69, 24398 ####[facility] [place] [address], [facility] Potassium [Moles/Vol] 3.2 mmol/L Low 3.5-5.1 [facility] Comment on above: Order Comment: No: D o not add to previous draw Performed By: #### 1 69, 57416 ####[facility] [place] [address], [facility] Sodium [Moles/Vol] 133 mmol/L Low 136-145 [facility] Comment on above: Order Comment: No: D o not add to previous draw Performed By: #### 1 69, 89940 ####[facility] [place] [address], [place] Urea nitrogen [Mass/Vol] 62 mg/dL High 7-25 [facility] Comment on above: Order Comment: No: D o not add to previous draw Performed By: #### 1 69, 67082 ####[facility] [place] [address], [facility] CBC COMPLETE BLOOD COUNTon 0 10-26-2021 Erythrocyte distribution width (RBC) [Ratio] 13.8 % Normal 11.5-15.0 [facility] Comment on above: Order Comment: No: D o not add to previous draw Performed By: #### 5 0608 ####[facility] [facility].[address] Hematocrit (Bld) [Volume fraction] 35.8 % Low 39.0-50.0 [facility] Comment on above: Order Comment: No: D o not add to previous draw Performed By: #### 5 0608 ####[facility] Hemoglobin (Bld) [Mass/Vol] 11.9 g/dL Low 13.0-17.0 [facility] Comment on above: Order Comment: No: D o not add to previous draw Performed By: #### 5 0608 ####[facility] MCH (RBC) [Entitic mass] 27.6 pg Normal 27.0-33.0 [facility] Comment on above: Order Comment: No: D o not add to previous draw Performed By: #### 5 0608 ####[facility] MCHC (RBC) [Mass/Vol] 33.2 g/dL Normal 32.0-35.0 [facility] Comment on above: Order Comment: No: D o not add to previous draw Performed By: #### 5 0608 ####[facility] [place] [address], [facility] MCV (RBC) [Entitic vol] 83.1 fL Normal 82.0-98.0 [facility] Comment on above: Order Comment: No: D o not add to previous draw Performed By: #### 5 0608 ####[facility] [facility].[address] Nucleated RBC/100 WBC (Bld) [Ratio] 0 % Normal 0-0 [facility] Comment on above: Order Comment: No: D o not add to previous draw Performed By: #### 5 0608 ####[facility] [place] [address], [facility] PLAT CNT 230 10*3/uL Normal 150-400 [facility] Comment on above: Order Comment: No: D o not add to previous draw Performed By: #### 5 0608 ####[facility] [place] [address], [facility] RBC (Bld) [#/Vol] 4.31 10*6/uL Normal 4.20-5.70 [facility] Comment on above: Order Comment: No: D o not add to previous draw Performed By: #### 5 0608 ####[facility] [place] [address], [facility] WBC (Bld) [#/Vol] 9.97 10*3/uL Normal 4.00-10.60 [facility] Comment on above: Order Comment: No: D o not add to previous draw Performed By: #### 5 0608 ####[facility] MAGNESIUM BLOODon 10-26-2021 Magnesium [Mass/Vol] 2.4 mg/dL Normal 1.9-2.7 [facility] Comment on above: Order Comment: No: D o not add to previous draw Performed By: #### 1 0070, 93679 ####[facility] [place] [address], [facility] POC GLUCOSE LABon 10-26-2021 Glucose [Mass/Vol] 181 mg/dL High 70-100 [facility] Comment on above: Performed By: #### 8 5499 ####[facility] [facility] [address], [facility] Glucose [Mass/Vol] 202 mg/dL High 70-100 [facility] Comment on above: Performed By: #### 8 5499 ####[facility] [place] [address], [facility] Glucose [Mass/Vol] 250 mg/dL High 70-100 [facility] Comment on above: Performed By: #### 8 5499 ####[facility] [place] [address], [facility] Glucose [Mass/Vol] 196 mg/dL High 70-100 [facility] Comment on above: Performed By: #### 8 5499 ####[facility] SODIUM URINE RANDOMon 2021 Sodium (U) [Moles/Vol] 43 mmol/L Normal [facility] Comment on above: Order Comment: No: D o not add to previous draw Result Comment: Ther e are no established reference values for random urine specimens Performed By: #### 4 3006 ####[facility] [place] [address], [facility] UA,MICROSCOPIC REQUIREDon Appearance (U) CLEAR Normal CLEAR [facility] Comment on above: Order Comment: No: D o not add to previous draw Performed By: #### 9 0150 ####[facility] [facility] [address], [facility] Bilirubin Ql (U) Negative Normal NEGATIVE [facility] Comment on above: Order Comment: No: D o not add to previous draw Performed By: #### 9 0150 ####[facility] [facility].[address] BUDDING YEAST OCC Abnormal NONE SEEN [facility] Comment on above: Order Comment: No: D o not add to previous draw Performed By: #### 9 0150 ####[facility] [place] [address], [place] Color (U) YELLOW Normal YELLOW [facility] Comment on above: Order Comment: No: D o not add to previous draw Performed By: #### 9 0150 ####[facility] [place] [address], [place] EPIS NONE SEEN Normal FEW,OCC,NONE SEEN [facility] Comment on above: Order Comment: No: D o not add to previous draw Performed By: #### 9 0150 ####[facility] [place] [address], [place] Glucose Ql (U) >=500 Abnormal NEGATIVE [facility] Comment on above: Order Comment: No: D o not add to previous draw Performed By: #### 9 0150 ####[facility] [place] [address], [place] Hemoglobin Ql (U) Negative Normal NEGATIVE [facility] Comment on above: Order Comment: No: D o not add to previous draw Performed By: #### 9 0150 ####[facility] [place] [address], [place] KETONE Negative Normal NEGATIVE [facility] Comment on above: Order Comment: No: D o not add to previous draw Performed By: #### 9 0150 ####[facility] [place] [address], [place] LEUK ROMEO Negative Normal NEGATIVE [facility] Comment on above: Order Comment: No: D o not add to previous draw Performed By: #### 9 0150 ####[facility] [place] [address], [place] Nitrite Ql (U) Negative Normal NEGATIVE [facility] Comment on above: Order Comment: No: D o not add to previous draw Performed By: #### 9 0150 ####[facility] pH (U) 8.0 [pH] Normal 5.0-8.0 [facility] Comment on above: Order Comment: No: D o not add to previous draw Performed By: #### 9 0150 ####[facility] Protein Ql (U) 30 mg/dL Abnormal NEGATIVE [facility] Comment on above: Order Comment: No: D o not add to previous draw Performed By: #### 9 0150 ####[facility] [place] [address], [facility] RBC NONE SEEN Normal NONE SEEN [facility] Comment on above: Order Comment: No: D o not add to previous draw Performed By: #### 9 0150 ####[facility] [facility] SPEC GRAV 1.017 Normal 1.015-1.020 [facility] Comment on above: Order Comment: No: D o not add to previous draw Performed By: #### 9 0150 ####[facility] [facility].[address] WBC UA 0-2 Abnormal NONE SEEN [facility] Comment on above: Order Comment: No: D o not add to previous draw Performed By: #### 9 0150 ####[facility] [facility] ARTERIAL BLOOD GAS WITH ICAo n 10-25-2021 BASE EXCESS 15 mmol/L High -2-3 [facility] Comment on above: Performed By: #### 8 4511 ####[facility] [place] [address], [facility] [employer]IVERY SYSTEMS ROOM AIR Normal [facility] Comment on above: Performed By: #### 8 4511 ####[facility] [place] [address], [facility] HCO3 (Bld) [Moles/Vol] 39 mmol/L Critically high 21-28 [facility] Comment on above: Performed By: #### 8 4511 ####[facility] [facility].[address] IONIZED CALCIUM 1.05 mmol/L Low 1.13-1.32 [facility] Comment on above: Performed By: #### 8 4511 ####[facility] [facility].[address] Oxygen (Bld) [Partial pressure] 79 mm[Hg] Low 83-108 [facility] Comment on above: Result Comment: RESU LTS CHECKED AND CALLED. ACCURATELY READ BACK BY A RAKEL RN Performed By: #### 8 4511 ####[facility] Oxygen saturation in Blood 94.6 % Normal 94.0-97.0 [facility] Comment on above: Performed By: #### 8 4511 ####[facility] [facility].[address] PCO2 44 mmHg Normal 35-45 [facility] Comment on above: Performed By: #### 8 4511 ####[facility] [facility].[address] pH (Bld) 7.56 [pH] Critically high 7.35-7.45 [facility] Comment on above: Result Comment: RESU LTS CHECKED AND CALLED. ACCURATELY READ BACK BY A RAKEL HERBERT Performed By: #### 8 4511 ####[facility] [facility].[address] BASIC METABOLIC PANELon 10-09 Calcium [Mass/Vol] 9.1 mg/dL Normal 8.6-10.3 [facility] Comment on above: Order Comment: No: D o not add to previous draw Performed By: #### 1 0070, 84227 ####[facility] [place] [address], [facility] Chloride [Moles/Vol] 88 mmol/L Low 98-107 [facility] Comment on above: Order Comment: No: D o not add to previous draw Performed By: #### 1 69, 80490 ####[facility] [place] [address], [facility] CO2 [Moles/Vol] 31 mmol/L Normal 21-31 [facility] Comment on above: Order Comment: No: D o not add to previous draw Performed By: #### 1 69, 12433 ####[facility] [place] [address], [facility] Creatinine [Mass/Vol] 1.31 mg/dL High 0.70-1.30 [facility] Comment on above: Order Comment: No: D o not add to previous draw Performed By: #### 1 69, 17192 ####[facility] [place] [address], [facility] eGFR- non- 56 ml/min/1.73sq m Abnormal >60 [facility] Comment on above: Order Comment: No: D o not add to previous draw Performed By: #### 1 69, 36139 ####[facility] [place] [address], [facility] GFR/1.73 sq M.predicted among blacks MDRD (S/P/Bld) [Vol rate/Area] mL/min/{1.73_m2} Normal >60 [facility] Comment on above: Order Comment: No: D o not add to previous draw Performed By: #### 1 69, 83894 ####[facility] [id number], [place] Glucose [Mass/Vol] 221 mg/dL High 70-100 [facility] Comment on above: Order Comment: No: D o not add to previous draw Performed By: #### 1 69, 57596 ####[facility] [place] [address], [facility] Potassium [Moles/Vol] 3.5 mmol/L Normal 3.5-5.1 [facility] Comment on above: Order Comment: No: D o not add to previous draw Performed By: #### 1 69, 34508 ####[facility] Sodium [Moles/Vol] 136 mmol/L Normal 136-145 [facility] Comment on above: Order Comment: No: D o not add to previous draw Performed By: #### 1 69, 97406 ####[facility] Urea nitrogen [Mass/Vol] 49 mg/dL High 7-25 [facility] Comment on above: Order Comment: No: D o not add to previous draw Performed By: #### 1 69, 58376 ####[facility] [facility] CBC COMPLETE BLOOD COUNTon 0 - Erythrocyte distribution width (RBC) [Ratio] 14.1 % Normal 11.5-15.0 [facility] Comment on above: Order Comment: No: D o not add to previous draw Performed By: #### 5 0608 ####[facility] Hematocrit (Bld) [Volume fraction] 38.1 % Low 39.0-50.0 [facility] Comment on above: Order Comment: No: D o not add to previous draw Performed By: #### 5 0608 ####[facility] Hemoglobin (Bld) [Mass/Vol] 12.6 g/dL Low 13.0-17.0 [facility] Comment on above: Order Comment: No: D o not add to previous draw Performed By: #### 5 0608 ####[facility] MCH (RBC) [Entitic mass] 27.2 pg Normal 27.0-33.0 [facility] Comment on above: Order Comment: No: D o not add to previous draw Performed By: #### 5 0608 ####[facility] MCHC (RBC) [Mass/Vol] 33.1 g/dL Normal 32.0-35.0 [facility] Comment on above: Order Comment: No: D o not add to previous draw Performed By: #### 5 0608 ####[address] MCV (RBC) [Entitic vol] 82.3 fL Normal 82.0-98.0 [facility] Comment on above: Order Comment: No: D o not add to previous draw Performed By: #### 5 0608 ####[address] Nucleated RBC/100 WBC (Bld) [Ratio] 0 % Normal 0-0 [facility] Comment on above: Order Comment: No: D o not add to previous draw Performed By: #### 5 0608 ####[facility] [place] [address] PLAT CNT 274 10*3/uL Normal 150-400 [facility] Comment on above: Order Comment: No: D o not add to previous draw Performed By: #### 5 0608 ####[address] RBC (Bld) [#/Vol] 4.63 10*6/uL Normal 4.20-5.70 [facility] Comment on above: Order Comment: No: D o not add to previous draw Performed By: #### 5 0608 ####[facility] [place] [address], [facility] WBC (Bld) [#/Vol] 10.16 10*3/uL Normal 4.00-10.60 [facility] Comment on above: Order Comment: No: D o not add to previous draw Performed By: #### 5 0608 ####[facility] [facility] [place] [address], [facility] FOOT RIGHT 3 VWSon 2 FOOT RIGHT 3 VWS Normal [facility] Comment on above: Order Comment: Osteo myelitis MAGNESIUM BLOODon 10-25-2021 Magnesium [Mass/Vol] 2.2 mg/dL Normal 1.9-2.7 [facility] Comment on above: Order Comment: No: D o not add to previous draw Performed By: #### 1 0070, [id number] ####[facility] [facility] [place] [address], [facility] POC GLUCOSE LABon 10-25-2021 Glucose [Mass/Vol] 300 mg/dL High 70-100 [facility] Comment on above: Performed By: #### 8 5499 ####[facility] [facility] [place] [address], [place] Glucose [Mass/Vol] 248 mg/dL High 70-100 [facility] Comment on above: Performed By: #### 8 5499 ####[facility] [facility] [place] [address], [place] Glucose [Mass/Vol] 225 mg/dL High 70-100 [facility] Comment on above: Performed By: #### 8 5499 ####[facility] [place] [address], [place] PORTABLE CHEST 1 VIEWon 10-09 PORTABLE CHEST 1 VIEW Normal [facility] Comment on above: Order Comment: Aspir ation BASIC METABOLIC PANELon - Calcium [Mass/Vol] 8.9 mg/dL Normal 8.6-10.3 [facility] Comment on above: Order Comment: No: D o not add to previous draw Performed By: #### 0 0071, [id number] ####[facility] [place] [address], [facility] Chloride [Moles/Vol] 95 mmol/L Low 98-107 [facility] Comment on above: Order Comment: No: D o not add to previous draw Performed By: #### 0 0071, [id number] ####[facility] [place] [address], [facility] CO2 [Moles/Vol] 32 mmol/L High 21-31 [facility] Comment on above: Order Comment: No: D o not add to previous draw Performed By: #### 0 0071, [id number] ####[facility] [place] [address], [place] Creatinine [Mass/Vol] 1.19 mg/dL Normal 0.70-1.30 [facility] Comment on above: Order Comment: No: D o not add to previous draw Performed By: #### 0 0071, 17779 ####[facility] [place] [address], [place] GFR/1.73 sq M.predicted among blacks MDRD (S/P/Bld) [Vol rate/Area] mL/min/{1.73_m2} Normal >60 [facility] Comment on above: Order Comment: No: D o not add to previous draw Performed By: #### 0 0071, 89983 ####[facility] [place] [address], [place] GFR/1.73 sq M.predicted among non-blacks MDRD (S/P/Bld) [Vol rate/Area] mL/min/{1.73_m2} Normal >60 [facility] Comment on above: Order Comment: No: D o not add to previous draw Performed By: #### 0 0071, [id number] ####[facility] [facility] [place] [place] [address], [facility] Glucose [Mass/Vol] 148 mg/dL High 70-100 [facility] Comment on above: Order Comment: No: D o not add to previous draw Performed By: #### 0 0071, 40288 ####[facility] [facility] [address], [facility] Potassium [Moles/Vol] 3.5 mmol/L Normal 3.5-5.1 [facility] Comment on above: Order Comment: No: D o not add to previous draw Performed By: #### 0 0071, 39720 ####[facility] [facility] [place] [place] [address], [facility] Sodium [Moles/Vol] 138 mmol/L Normal 136-145 [facility] Comment on above: Order Comment: No: D o not add to previous draw Performed By: #### 0 0071, 66344 ####[facility] [facility].[address] Urea nitrogen [Mass/Vol] 39 mg/dL High 7-25 [facility] Comment on above: Order Comment: No: D o not add to previous draw Performed By: #### 0 0071, [id number] ####[facility] [facility].[address] CBC COMPLETE BLOOD COUNTon 0 - Erythrocyte distribution width (RBC) [Ratio] 14.2 % Normal 11.5-15.0 [facility] Comment on above: Order Comment: No: D o not add to previous draw Performed By: #### 5 0608 ####[facility] [facility] [address], [facility] Hematocrit (Bld) [Volume fraction] 34.7 % Low 39.0-50.0 [facility] Comment on above: Order Comment: No: D o not add to previous draw Performed By: #### 5 0608 ####[facility] Hemoglobin (Bld) [Mass/Vol] 11.3 g/dL Low 13.0-17.0 [facility] Comment on above: Order Comment: No: D o not add to previous draw Performed By: #### 5 0608 ####[facility] MCH (RBC) [Entitic mass] 27.4 pg Normal 27.0-33.0 [facility] Comment on above: Order Comment: No: D o not add to previous draw Performed By: #### 5 0608 ####[facility] MCHC (RBC) [Mass/Vol] 32.6 g/dL Normal 32.0-35.0 [facility] Comment on above: Order Comment: No: D o not add to previous draw Performed By: #### 5 0608 ####[facility] MCV (RBC) [Entitic vol] 84.0 fL Normal 82.0-98.0 [facility] Comment on above: Order Comment: No: D o not add to previous draw Performed By: #### 5 0608 ####[facility] Nucleated RBC/100 WBC (Bld) [Ratio] 0 % Normal 0-0 [facility] Comment on above: Order Comment: No: D o not add to previous draw Performed By: #### 5 0608 ####[address] PLAT CNT 234 10*3/uL Normal 150-400 [facility] Comment on above: Order Comment: No: D o not add to previous draw Performed By: #### 5 0608 ####[facility] [place] [address], [facility] RBC (Bld) [#/Vol] 4.13 10*6/uL Low 4.20-5.70 [facility] Comment on above: Order Comment: No: D o not add to previous draw Performed By: #### 5 0608 ####[facility] [place] [address], [place] WBC (Bld) [#/Vol] 9.88 10*3/uL Normal 4.00-10.60 [facility] Comment on above: Order Comment: No: D o not add to previous draw Performed By: #### 5 0608 ####[facility] [facility] [place] [address], [facility] MAGNESIUM BLOODon 10-24-2021 Magnesium [Mass/Vol] 2.1 mg/dL Normal 1.9-2.7 [facility] Comment on above: Order Comment: No: D o not add to previous draw Performed By: #### 0 0071, [id number] ####[facility] [facility] [place] [address], [place] POC GLUCOSE LABon 10-24-2021 Glucose [Mass/Vol] 215 mg/dL High 70-100 [facility] Comment on above: Performed By: #### 8 5499 ####[facility] [facility] [place] [address], [place] Glucose [Mass/Vol] 247 mg/dL High 70-100 [facility] Comment on above: Performed By: #### 8 5499 ####[facility] [place] [address], [place] Glucose [Mass/Vol] 196 mg/dL High 70-100 [facility] Comment on above: Performed By: #### 8 5499 ####[facility] [place] [address], [facility] Glucose [Mass/Vol] 173 mg/dL High 70-100 [facility] Comment on above: Performed By: #### 8 5499 ####[facility] [place] [address], [facility] BASIC METABOLIC PANELon 10-09 Calcium [Mass/Vol] 8.7 mg/dL Normal 8.6-10.3 [facility] Comment on above: Order Comment: No: D o not add to previous drawRefused draw nurse Iram Performed By: #### 1 0, 82840 ####[facility] [place] [address], [facility] Chloride [Moles/Vol] 103 mmol/L Normal 98-107 [facility] Comment on above: Order Comment: No: D o not add to previous drawRefused draw nurse Iram Performed By: #### 1 69, 40233 ####[facility] [place] [address], [facility] CO2 [Moles/Vol] 28 mmol/L Normal 21-31 [facility] Comment on above: Order Comment: No: D o not add to previous drawRefused draw nurse Iram Performed By: #### 1 69, 40742 ####[facility] [place] [address], [facility] Creatinine [Mass/Vol] 1.09 mg/dL Normal 0.70-1.30 [facility] Comment on above: Order Comment: No: D o not add to previous drawRefused draw nurse Iram Performed By: #### 1 0, 36701 ####[facility] [place] [address], [facility] GFR/1.73 sq M.predicted among blacks MDRD (S/P/Bld) [Vol rate/Area] mL/min/{1.73_m2} Normal >60 [facility] Comment on above: Order Comment: No: D o not add to previous drawRefused draw nurse Iram Performed By: #### 1 69, 79761 ####[facility] [facility] [address], [facility] GFR/1.73 sq M.predicted among non-blacks MDRD (S/P/Bld) [Vol rate/Area] mL/min/{1.73_m2} Normal >60 [facility] Comment on above: Order Comment: No: D o not add to previous drawRefused draw nurse Iram Performed By: #### 1 69, 76921 ####[facility] [facility].[address] Glucose [Mass/Vol] 160 mg/dL High 70-100 [facility] Comment on above: Order Comment: No: D o not add to previous drawRefused draw nurse Iram Performed By: #### 1 69, 91007 ####[facility] [place] [address], [facility] Potassium [Moles/Vol] 4.3 mmol/L Normal 3.5-5.1 [facility] Comment on above: Order Comment: No: D o not add to previous drawRefused draw nurse Iram Performed By: #### 1 69, 82362 ####[facility] [facility] [address], [facility] Sodium [Moles/Vol] 138 mmol/L Normal 136-145 [facility] Comment on above: Order Comment: No: D o not add to previous drawRefused draw nurse Iram Performed By: #### 1 69, 35989 ####[facility] [facility] [place] [place] [address], [facility] Urea nitrogen [Mass/Vol] 38 mg/dL High 7-25 [facility] Comment on above: Order Comment: No: D o not add to previous drawRefused draw nurse Iram Performed By: #### 1 0070, 96917 ####[facility] CBC COMPLETE BLOOD COUNTon 0 10-23-2021 Erythrocyte distribution width (RBC) [Ratio] 14.1 % Normal 11.5-15.0 [facility] Comment on above: Order Comment: No: D o not add to previous drawRefused draw nurse Iram Performed By: #### 5 0608 ####[facility] Hematocrit (Bld) [Volume fraction] 33.5 % Low 39.0-50.0 [facility] Comment on above: Order Comment: No: D o not add to previous drawRefused draw nurse Iram Performed By: #### 5 0608 ####[place] [id number] [address] Hemoglobin (Bld) [Mass/Vol] 10.4 g/dL Low 13.0-17.0 [facility] Comment on above: Order Comment: No: D o not add to previous drawRefused draw nurse Iram Performed By: #### 5 0608 ####[facility] MCH (RBC) [Entitic mass] 26.9 pg Low 27.0-33.0 [facility] Comment on above: Order Comment: No: D o not add to previous drawRefused draw nurse Iram Performed By: #### 5 0608 ####[facility] MCHC (RBC) [Mass/Vol] 31.0 g/dL Low 32.0-35.0 [facility] Comment on above: Order Comment: No: D o not add to previous drawRefused draw nurse Iram Performed By: #### 5 0608 ####[facility] [place] [address] MCV (RBC) [Entitic vol] 86.8 fL Normal 82.0-98.0 [facility] Comment on above: Order Comment: No: D o not add to previous drawRefused draw nurse Iram Performed By: #### 5 0608 ####[facility] Nucleated RBC/100 WBC (Bld) [Ratio] 0 % Normal 0-0 [facility] Comment on above: Order Comment: No: D o not add to previous drawRefused draw nurse Iram Performed By: #### 5 0608 ####[facility] PLAT CNT 228 10*3/uL Normal 150-400 [facility] Comment on above: Order Comment: No: D o not add to previous drawRefused draw nurse Iram Performed By: #### 5 0608 ####[facility] RBC (Bld) [#/Vol] 3.86 10*6/uL Low 4.20-5.70 [facility] Comment on above: Order Comment: No: D o not add to previous drawRefused draw nurse Iram Performed By: #### 5 0608 ####[facility] [facility].[address] WBC (Bld) [#/Vol] 6.91 10*3/uL Normal 4.00-10.60 [facility] Comment on above: Order Comment: No: D o not add to previous drawRefused draw nurse Iram Performed By: #### 5 0608 ####[facility] [place] [address], [facility] MAGNESIUM BLOODon 10-23-2021 Magnesium [Mass/Vol] 2.3 mg/dL Normal 1.9-2.7 [facility] Comment on above: Order Comment: No: D o not add to previous drawRefused draw nurse Iram Performed By: #### 1 0070, 71750 ####[facility] [place] [address], [place] POC GLUCOSE LABon 10-23-2021 Glucose [Mass/Vol] 176 mg/dL High 70-100 [facility] Comment on above: Performed By: #### 8 5499 ####[facility] [place] [address], [place] Glucose [Mass/Vol] 134 mg/dL High 70-100 [facility] Comment on above: Performed By: #### 8 5499 ####[facility] [place] [address], [place] Glucose [Mass/Vol] 124 mg/dL High 70-100 [facility] Comment on above: Performed By: #### 8 5499 ####[facility] [place] [address], [place] Glucose [Mass/Vol] 338 mg/dL High 70-100 [facility] Comment on above: Performed By: #### 8 5499 ####[facility] [place] [address], [place] BASIC METABOLIC PANELon 10-09 Calcium [Mass/Vol] 8.2 mg/dL Low 8.6-10.3 [facility] Comment on above: Order Comment: No: D o not add to previous draw Performed By: #### 0 0071 ####[facility] [place] [address], [place] Chloride [Moles/Vol] 100 mmol/L Normal 98-107 [facility] Comment on above: Order Comment: No: D o not add to previous draw Performed By: #### 0 0071 ####[facility] [place] [address], [place] CO2 [Moles/Vol] 30 mmol/L Normal 21-31 [facility] Comment on above: Order Comment: No: D o not add to previous draw Performed By: #### 0 0071 ####[facility] [place] [address], [facility] Creatinine [Mass/Vol] 1.16 mg/dL Normal 0.70-1.30 [facility] Comment on above: Order Comment: No: D o not add to previous draw Performed By: #### 0 0071 ####[facility] [place] [address], [place] GFR/1.73 sq M.predicted among blacks MDRD (S/P/Bld) [Vol rate/Area] mL/min/{1.73_m2} Normal >60 [facility] Comment on above: Order Comment: No: D o not add to previous draw Performed By: #### 0 0071 ####[facility] [place] [address], [facility] GFR/1.73 sq M.predicted among non-blacks MDRD (S/P/Bld) [Vol rate/Area] mL/min/{1.73_m2} Normal >60 [facility] Comment on above: Order Comment: No: D o not add to previous draw Performed By: #### 0 0071 ####[facility] [place] [address], [place] Glucose [Mass/Vol] 190 mg/dL High 70-100 [facility] Comment on above: Order Comment: No: D o not add to previous draw Performed By: #### 0 0071 ####[facility] [place] [address], [place] Potassium [Moles/Vol] 4.0 mmol/L Normal 3.5-5.1 [facility] Comment on above: Order Comment: No: D o not add to previous draw Performed By: #### 0 0071 ####[facility] [place] [address], [place] Sodium [Moles/Vol] 137 mmol/L Normal 136-145 [facility] Comment on above: Order Comment: No: D o not add to previous draw Performed By: #### 0 0071 ####[facility] [place] [address], [place] Urea nitrogen [Mass/Vol] 42 mg/dL High 7-25 [facility] Comment on above: Order Comment: No: D o not add to previous draw Performed By: #### 0 0071 ####[facility] [place] [address], [place] POC GLUCOSE LABon 10-22-2021 Glucose [Mass/Vol] 153 mg/dL High 70-100 [facility] Comment on above: Performed By: #### 8 5499 ####[facility] [place] [address], [place] Glucose [Mass/Vol] 135 mg/dL High 70-100 [facility] Comment on above: Performed By: #### 8 5499 ####[facility] [place] [address], [place] Glucose [Mass/Vol] 266 mg/dL High 70-100 [facility] Comment on above: Performed By: #### 8 5499 ####[facility] [place] [address], [place] Glucose [Mass/Vol] 201 mg/dL High 70-100 [facility] Comment on above: Performed By: #### 8 5499 ####[facility] [place] [address], [place] BASIC METABOLIC PANELon 10-09 Calcium [Mass/Vol] 9.4 mg/dL Normal 8.6-10.3 [facility] Comment on above: Performed By: #### 0 5, 51228 ####[facility] [place] [address], [place] Chloride [Moles/Vol] 98 mmol/L Normal 98-107 [facility] Comment on above: Performed By: #### 0 ####[facility] [facility] [place] [place] [address], [facility] CO2 [Moles/Vol] 32 mmol/L High 21-31 [facility] Comment on above: Performed By: #### 0 ####[facility] [facility] [place] [place] [address], [facility] Creatinine [Mass/Vol] 1.04 mg/dL Normal 0.70-1.30 [facility] Comment on above: Performed By: #### 0 ####[facility] [facility] [place] [address], [facility] GFR/1.73 sq M.predicted among blacks MDRD (S/P/Bld) [Vol rate/Area] mL/min/{1.73_m2} Normal >60 [facility] Comment on above: Performed By: #### 0 ####[facility] [facility] [place] [place] [address], [facility] GFR/1.73 sq M.predicted among non-blacks MDRD (S/P/Bld) [Vol rate/Area] mL/min/{1.73_m2} Normal >60 [facility] Comment on above: Performed By: #### 0 ####[facility] [facility] [place] [address], [facility] Glucose [Mass/Vol] 210 mg/dL High 70-100 [facility] Comment on above: Performed By: #### 0 ####[facility] [place] [address], [place] Potassium [Moles/Vol] 4.1 mmol/L Normal 3.5-5.1 [facility] Comment on above: Performed By: #### 0 ####[facility] [place] [address], [facility] Sodium [Moles/Vol] 139 mmol/L Normal 136-145 [facility] Comment on above: Performed By: #### 0 ####[facility] [place] [address], [facility] Urea nitrogen [Mass/Vol] 37 mg/dL High 7-25 [facility] Comment on above: Performed By: #### 0 ####[facility] [place] [address], [facility] POC GLUCOSE LABon 10-21-2021 Glucose [Mass/Vol] 230 mg/dL High 70-100 [facility] Comment on above: Performed By: #### 8 5499 ####[facility] [facility].[address] Glucose [Mass/Vol] 229 mg/dL High 70-100 [facility] Comment on above: Performed By: #### 8 5499 ####[facility] [facility] [address], [facility] Glucose [Mass/Vol] 276 mg/dL High 70-100 [facility] Comment on above: Performed By: #### 8 5499 ####[facility] [facility] [address], [facility] Glucose [Mass/Vol] 171 mg/dL High 70-100 [facility] Comment on above: Performed By: #### 8 5499 ####[facility] [place] [address], [facility] VANCOMYCIN TROUGHon 10-22-19 22 VANCOMYCIN TROU 14.7 mcg/mL Normal 5.0-20.0 [facility] Comment on above: Performed By: #### 0 ####[facility] [place] [address], [facility] BASIC METABOLIC PANELon - Calcium [Mass/Vol] 8.9 mg/dL Normal 8.6-10.3 [facility] Comment on above: Order Comment: No: D o not add to previous draw Performed By: #### 0 0071 ####[facility] [place] [address], [facility] Chloride [Moles/Vol] 99 mmol/L Normal 98-107 [facility] Comment on above: Order Comment: No: D o not add to previous draw Performed By: #### 0 0071 ####[facility] [facility] [place] [place] [address], [facility] CO2 [Moles/Vol] 31 mmol/L Normal 21-31 [facility] Comment on above: Order Comment: No: D o not add to previous draw Performed By: #### 0 0071 ####[facility] [place] [address], [facility] Creatinine [Mass/Vol] 0.94 mg/dL Normal 0.70-1.30 [facility] Comment on above: Order Comment: No: D o not add to previous draw Performed By: #### 0 0071 ####[facility] [facility] [place] [place] [address], [facility] GFR/1.73 sq M.predicted among blacks MDRD (S/P/Bld) [Vol rate/Area] mL/min/{1.73_m2} Normal >60 [facility] Comment on above: Order Comment: No: D o not add to previous draw Performed By: #### 0 0071 ####[facility] [place] [address], [place] GFR/1.73 sq M.predicted among non-blacks MDRD (S/P/Bld) [Vol rate/Area] mL/min/{1.73_m2} Normal >60 [facility] Comment on above: Order Comment: No: D o not add to previous draw Performed By: #### 0 0071 ####[facility] [place] [address], [place] Glucose [Mass/Vol] 110 mg/dL High 70-100 [facility] Comment on above: Order Comment: No: D o not add to previous draw Performed By: #### 0 0071 ####[facility] [place] [address], [place] Potassium [Moles/Vol] 4.1 mmol/L Normal 3.5-5.1 [facility] Comment on above: Order Comment: No: D o not add to previous draw Performed By: #### 0 0071 ####[facility] [place] [address], [place] Sodium [Moles/Vol] 137 mmol/L Normal 136-145 [facility] Comment on above: Order Comment: No: D o not add to previous draw Performed By: #### 0 0071 ####[facility] [place] [address], [facility] Urea nitrogen [Mass/Vol] 27 mg/dL High 7-25 [facility] Comment on above: Order Comment: No: D o not add to previous draw Performed By: #### 0 0071 ####[facility] [place] [address], [place] POC GLUCOSE LABon 10-20-2021 Glucose [Mass/Vol] 205 mg/dL High 70-100 [facility] Comment on above: Performed By: #### 8 5499 ####[facility] [place] [address], [place] Glucose [Mass/Vol] 186 mg/dL High 70-100 [facility] Comment on above: Performed By: #### 8 5499 ####[facility] [place] [address], [facility] Glucose [Mass/Vol] 270 mg/dL High 70-100 [facility] Comment on above: Performed By: #### 8 5499 ####[facility] [facility] [place] [address], [facility] Glucose [Mass/Vol] 291 mg/dL High 70-100 [facility] Comment on above: Performed By: #### 8 5499 ####[facility] [facility].[address] APTTon 10-19-2021 aPTT Coag (Bld) [Time] 31.0 s Normal 25.0-35.0 [facility] Comment on above: Order Comment: No: D o not add to previous draw Result Comment: ALL RESULTS MUST BE INTERPRETED WITH RESPECT TO BLOOD DRAWING ARTIFACTOR DILUTION ERROR OF ANTICOAGULANT AT THE TIME OF SAMPLING.THE APTT SHOULD NOT BE USED TO MONITOR UNFRACTIONATED HEPARIN THERAPY, THIS LABORATORY NO LONGER HAS AN ESTABLISHED THERAPEUTIC RANGE BASEDON THE APTT. IT IS RECOMMENDED THAT THE UFH - HEPARIN ASSAY (ANTI-XAACTIVITY) BE USED FOR THIS PURPOSE. Performed By: #### 5 6101, 95354 ####[address] BASIC METABOLIC PANELon 10-09 Calcium [Mass/Vol] 8.8 mg/dL Normal 8.6-10.3 [facility] Comment on above: Order Comment: No: D o not add to previous draw Performed By: #### 0 0071, 16330, 39002 ####[facility] [facility] [address], [facility] Chloride [Moles/Vol] 104 mmol/L Normal 98-107 [facility] Comment on above: Order Comment: No: D o not add to previous draw Performed By: #### 0 0071, 60260, 92922 ####[facility] [place] [address], [facility] CO2 [Moles/Vol] 29 mmol/L Normal 21-31 [facility] Comment on above: Order Comment: No: D o not add to previous draw Performed By: #### 0 0071, 88005, 14575 ####[facility] [place] [address], [facility] Creatinine [Mass/Vol] 0.80 mg/dL Normal 0.70-1.30 [facility] Comment on above: Order Comment: No: D o not add to previous draw Performed By: #### 0 0071, 57856, 98514 ####[facility] [place] [address], [facility] GFR/1.73 sq M.predicted among blacks MDRD (S/P/Bld) [Vol rate/Area] mL/min/{1.73_m2} Normal >60 [facility] Comment on above: Order Comment: No: D o not add to previous draw Performed By: #### 0 0071, 91294, 58223 ####[facility] [place] [address], [place] GFR/1.73 sq M.predicted among non-blacks MDRD (S/P/Bld) [Vol rate/Area] mL/min/{1.73_m2} Normal >60 [facility] Comment on above: Order Comment: No: D o not add to previous draw Performed By: #### 0 0071, 77947, 28194 ####[facility] [place] [address], [place] Glucose [Mass/Vol] 118 mg/dL High 70-100 [facility] Comment on above: Order Comment: No: D o not add to previous draw Performed By: #### 0 0071, 14121, 97472 ####[facility] [place] [address], [place] Potassium [Moles/Vol] 4.4 mmol/L Normal 3.5-5.1 [facility] Comment on above: Order Comment: No: D o not add to previous draw Performed By: #### 0 0071, 89000, 20281 ####[facility] [facility].[address] Sodium [Moles/Vol] 138 mmol/L Normal 136-145 [facility] Comment on above: Order Comment: No: D o not add to previous draw Performed By: #### 0 0071, 14029, 29942 ####[facility] [facility].[address] Urea nitrogen [Mass/Vol] 18 mg/dL Normal 7-25 [facility] Comment on above: Order Comment: No: D o not add to previous draw Performed By: #### 0 0071, 07419, 79919 ####[facility] [facility].[address] CBC COMPLETE BLOOD COUNTon 0 - Erythrocyte distribution width (RBC) [Ratio] 14.6 % Normal 11.5-15.0 [facility] Comment on above: Order Comment: No: D o not add to previous draw Performed By: #### 5 0608 ####[place] [address] [facility].[address] Hematocrit (Bld) [Volume fraction] 29.5 % Low 39.0-50.0 [facility] Comment on above: Order Comment: No: D o not add to previous draw Performed By: #### 5 0608 ####[facility] [facility].[address] Hemoglobin (Bld) [Mass/Vol] 9.4 g/dL Low 13.0-17.0 [facility] Comment on above: Order Comment: No: D o not add to previous draw Performed By: #### 5 0608 ####[facility] [facility] [address], [facility] MCH (RBC) [Entitic mass] 27.5 pg Normal 27.0-33.0 [facility] Comment on above: Order Comment: No: D o not add to previous draw Performed By: #### 5 0608 ####[facility] MCHC (RBC) [Mass/Vol] 31.9 g/dL Low 32.0-35.0 [facility] Comment on above: Order Comment: No: D o not add to previous draw Performed By: #### 5 0608 ####[facility] MCV (RBC) [Entitic vol] 86.3 fL Normal 82.0-98.0 [facility] Comment on above: Order Comment: No: D o not add to previous draw Performed By: #### 5 0608 ####[facility] Nucleated RBC/100 WBC (Bld) [Ratio] 0 % Normal 0-0 [facility] Comment on above: Order Comment: No: D o not add to previous draw Performed By: #### 5 0608 ####[facility] PLAT CNT 200 10*3/uL Normal 150-400 [facility] Comment on above: Order Comment: No: D o not add to previous draw Performed By: #### 5 0608 ####[facility] RBC (Bld) [#/Vol] 3.42 10*6/uL Low 4.20-5.70 [facility] Comment on above: Order Comment: No: D o not add to previous draw Performed By: #### 5 0608 ####[facility] [place] [address], [facility] WBC (Bld) [#/Vol] 6.23 10*3/uL Normal 4.00-10.60 [facility] Comment on above: Order Comment: No: D o not add to previous draw Performed By: #### 5 0608 ####[facility] [place] [address], [place] MAGNESIUM BLOODon 10-19-2021 Magnesium [Mass/Vol] 1.7 mg/dL Low 1.9-2.7 [facility] Comment on above: Order Comment: No: D o not add to previous draw Performed By: #### 0 0071, 59043, 41008 ####[facility] [place] [address], [place] PHOSPHORUS BLOODon Phosphate [Mass/Vol] 3.3 mg/dL Normal 2.5-5.0 [facility] Comment on above: Order Comment: No: D o not add to previous draw Performed By: #### 0 0071, 35208, 96622 ####[facility] [place] [address], [place] POC GLUCOSE LABon 10-19-2021 Glucose [Mass/Vol] 170 mg/dL High 70-100 [facility] Comment on above: Performed By: #### 8 5499 ####[facility] [place] [address], [place] Glucose [Mass/Vol] 349 mg/dL High 70-100 [facility] Comment on above: Performed By: #### 8 5499 ####[facility] [place] [address], [place] Glucose [Mass/Vol] 216 mg/dL High 70-100 [facility] Comment on above: Performed By: #### 8 5499 ####[facility] [place] [address], [place] Glucose [Mass/Vol] 126 mg/dL High 70-100 [facility] Comment on above: Performed By: #### 8 5499 ####[facility] [facility].[address] PROTHROMBIN TIMEon INR Coag (PPP) [Relative time] 1.10 {INR} Normal 0.91-1.16 [facility] Comment on above: Order Comment: No: D o not add to previous draw Result Comment: ACCC P RECOMMENDED INR FOR WARFARIN THERAPY CONDITION INRPROPHYLAXIS OF VENOUS THROMBOSIS 2-3(HIGH-RISK SURGERY)TREATMENT OF VENOUS THROMBOSIS 2-3TREATMENT OF PULMONARY EMBOLISM 2-3PREVENTION OF SYSTEMIC EMBOLISM: 2-3 ACUTE MYOCARDIAL INFARCTION TISSUE HEART VALVES VALVULAR HEART DISEASE ATRIAL FIBRILLATION RECURRENT SYSTEMIC EMBOLISMMECHANICAL HEART VALVE 2.5-3.5 FROM: ORAL ANTICOAGULANTS. MECHANISM OF ACTION, CLINICALEFFECTIVENESS, AND OPTIMAL THERAPEUTIC RANGE. [id number];108:[id number]. Performed By: #### 5 6101, 12319 ####[facility] [facility] [address], [facility] PT Coag (PPP) [Time] 14.2 s Normal 12.3-14.8 [facility] Comment on above: Order Comment: No: D o not add to previous draw Result Comment: ALL RESULTS MUST BE INTERPRETED WITH RESPECT TO BLOOD DRAWING ARTIFACTOR DILUTION ERROR OF ANTICOAGULANT AT THE TIME OF SAMPLING. Performed By: #### 5 6101, 78429 ####[facility] [place] [address], [facility] APTTon 10-18-2021 aPTT Coag (Bld) [Time] 29.9 s Normal 25.0-35.0 [facility] Comment on above: Order Comment: No: D o not add to previous draw Result Comment: ALL RESULTS MUST BE INTERPRETED WITH RESPECT TO BLOOD DRAWING ARTIFACTOR DILUTION ERROR OF ANTICOAGULANT AT THE TIME OF SAMPLING.THE APTT SHOULD NOT BE USED TO MONITOR UNFRACTIONATED HEPARIN THERAPY, THIS LABORATORY NO LONGER HAS AN ESTABLISHED THERAPEUTIC RANGE BASEDON THE APTT. IT IS RECOMMENDED THAT THE UFH - HEPARIN ASSAY (ANTI-XAACTIVITY) BE USED FOR THIS PURPOSE. Performed By: #### 5 6101, 80023 ####[facility] [facility].[address] BASIC METABOLIC PANELon 06--2021 Calcium [Mass/Vol] 8.4 mg/dL Low 8.6-10.3 [facility] Comment on above: Order Comment: No: D o not add to previous draw Performed By: #### 3 5200, 69692, 63527, 54142, 96709 ####[facility] [place] [address], [facility] Chloride [Moles/Vol] 108 mmol/L High 98-107 [facility] Comment on above: Order Comment: No: D o not add to previous draw Performed By: #### 3 5200, 52412, 40063, 08564, 42713 ####[facility] [place] [address], [facility] CO2 [Moles/Vol] 26 mmol/L Normal 21-31 [facility] Comment on above: Order Comment: No: D o not add to previous draw Performed By: #### 3 5200, 82585, 59552, 52249, 20009 ####[facility] [place] [address], [facility] Creatinine [Mass/Vol] 0.70 mg/dL Normal 0.70-1.30 [facility] Comment on above: Order Comment: No: D o not add to previous draw Performed By: #### 3 5200, 93690, 91530, 35996, 33738 ####[facility] [place] [address], [facility] GFR/1.73 sq M.predicted among blacks MDRD (S/P/Bld) [Vol rate/Area] mL/min/{1.73_m2} Normal >60 [facility] Comment on above: Order Comment: No: D o not add to previous draw Performed By: #### 3 5200, 72230, 14011, 09610, 09306 ####[facility] [place] [address], [facility] GFR/1.73 sq M.predicted among non-blacks MDRD (S/P/Bld) [Vol rate/Area] mL/min/{1.73_m2} Normal >60 [facility] Comment on above: Order Comment: No: D o not add to previous draw Performed By: #### 3 5200, 82501, 69185, 96698, 16332 ####[facility] [facility] [place] [address], [facility] Glucose [Mass/Vol] 114 mg/dL High 70-100 [facility] Comment on above: Order Comment: No: D o not add to previous draw Performed By: #### 3 5200, 03237, 59275, 14166, 86792 ####[facility] [facility] [place] [address], [facility] Potassium [Moles/Vol] 4.4 mmol/L Normal 3.5-5.1 [facility] Comment on above: Order Comment: No: D o not add to previous draw Performed By: #### 3 5200, 95547, 58140, 07652, 04511 ####[facility] [facility] [place] [address], [facility] Sodium [Moles/Vol] 139 mmol/L Normal 136-145 [facility] Comment on above: Order Comment: No: D o not add to previous draw Performed By: #### 3 5200, 56518, 67760, 51903, 62044 ####[facility] Urea nitrogen [Mass/Vol] 17 mg/dL Normal 7-25 [facility] Comment on above: Order Comment: No: D o not add to previous draw Performed By: #### 3 5200, 63046, 79317, 51745, 60657 ####[facility] BNP (B-TYPE NATRIURETIC PEPT CHANNING)on 10-18-2021 Natriuretic peptide B (Bld) [Mass/Vol] 124 pg/mL High 0-100 [facility] Comment on above: Order Comment: No: D o not add to previous draw Result Comment: Give n the appropriate clinical setting a BNP result of >100 pg/mLindicates congestive heart failure. Performed By: #### 8 5123 ####[facility] CBC W/DIFFon 10-18-2021 ABS IMM GRANS 0.0 10*3/uL Normal 0.0-0.2 [facility] Comment on above: Order Comment: Marie silva notified mike Donnelly trying to get pic to come Performed By: #### 5 0103 ####[facility] ABS NEUTROPHILS 3.4 10*3/uL Normal 1.6-7.6 [facility] Comment on above: Order Comment: Marie silva notified mike Donnelly trying to get pic to come Performed By: #### 5 0103 ####[facility] Basophils (Bld) [#/Vol] 0.0 10*3/uL Normal 0.0-0.2 [facility] Comment on above: Order Comment: Marie silva notified mike Donnelly trying to get pic to come Performed By: #### 5 0103 ####[facility] [place] [address], [facility] Basophils/100 WBC (Bld) 0.7 % Normal 0.0-1.0 [facility] Comment on above: Order Comment: Marie silva notified mike Donnelly trying to get pic to come Performed By: #### 5 0103 ####[place] [address], [facility] Eosinophils (Bld) [#/Vol] 0.1 10*3/uL Normal 0.0-0.5 [facility] Comment on above: Order Comment: Marie silva notified mike Donnelly trying to get pic to come Performed By: #### 5 0103 ####[place] [address] [place] [address], [facility] Eosinophils/100 WBC (Bld) 1.5 % Normal 0.0-6.0 [facility] Comment on above: Order Comment: Marie silva notified mike Donnelly trying to get pic to come Performed By: #### 5 0103 ####[place] [address] Erythrocyte distribution width (RBC) [Ratio] 14.5 % Normal 11.5-15.0 [facility] Comment on above: Order Comment: Marie silva notified mike Donnelly trying to get pic to come Performed By: #### 5 0103 ####[address] Hematocrit (Bld) [Volume fraction] 27.8 % Low 39.0-50.0 [facility] Comment on above: Order Comment: Marie silva notified mike Donnelly trying to get pic to come Performed By: #### 5 0103 ####[place] [address], [facility] Hemoglobin (Bld) [Mass/Vol] 9.0 g/dL Low 13.0-17.0 [facility] Comment on above: Order Comment: Marie silva notified rn Cony trying to get pic to come Performed By: #### 5 0103 ####[facility] IMMATURE GRANS 0.4 % Normal 0.0-1.0 [facility] Comment on above: Order Comment: Marie silva notified rn Cony trying to get pic to come Performed By: #### 5 0103 ####[facility] Lymphocytes (Bld) [#/Vol] 1.6 10*3/uL Normal 1.2-4.0 [facility] Comment on above: Order Comment: Marie silva notified rn Cony trying to get pic to come Performed By: #### 5 0103 ####[facility] Lymphocytes/100 WBC (Bld) 28.8 % Normal 20.0-45.0 [facility] Comment on above: Order Comment: Marie silva notified mike Donnelly trying to get pic to come Performed By: #### 5 0103 ####[facility] MCH (RBC) [Entitic mass] 27.5 pg Normal 27.0-33.0 [facility] Comment on above: Order Comment: Marie silva notified rn Cony trying to get pic to come Performed By: #### 5 0103 ####[facility] MCHC (RBC) [Mass/Vol] 32.4 g/dL Normal 32.0-35.0 [facility] Comment on above: Order Comment: Marie silva notified mike Donnelly trying to get pic to come Performed By: #### 5 0103 ####[facility] MCV (RBC) [Entitic vol] 85.0 fL Normal 82.0-98.0 [facility] Comment on above: Order Comment: Marie silva notified rn Cony trying to get pic to come Performed By: #### 5 0103 ####[facility] [place] [address], [facility] Monocytes (Bld) [#/Vol] 0.4 10*3/uL Normal 0.1-1.0 [facility] Comment on above: Order Comment: Marie silva notified rn Cony trying to get pic to come Performed By: #### 5 0103 ####[facility] MONOS 7.1 % Normal 5.0-12.0 [facility] Comment on above: Order Comment: Marie silva notified rn Cony trying to get pic to come Performed By: #### 5 0103 ####[facility] [facility].[address] Neutrophils/100 WBC (Bld) 61.5 % Normal 40.0-72.0 [facility] Comment on above: Order Comment: Marie silva notified rn Cony trying to get pic to come Performed By: #### 5 0103 ####[facility] [facility].[address] Nucleated RBC/100 WBC (Bld) [Ratio] 0 % Normal 0-0 [facility] Comment on above: Order Comment: Marie silva notified rn Cony trying to get pic to come Performed By: #### 5 0103 ####[facility] [place] [address], [facility] PLAT CNT 181 10*3/uL Normal 150-400 [facility] Comment on above: Order Comment: Marie silva notified rn Cony trying to get pic to come Performed By: #### 5 0103 ####[facility] [place] [address], [facility] RBC (Bld) [#/Vol] 3.27 10*6/uL Low 4.20-5.70 [facility] Comment on above: Order Comment: Marie silva notified rn Cony trying to get pic to come Performed By: #### 5 0103 ####[facility] [place] [address], [facility] WBC (Bld) [#/Vol] 5.48 10*3/uL Normal 4.00-10.60 [facility] Comment on above: Order Comment: Marie silva notified rn Cony trying to get pic to come Performed By: #### 5 0103 ####[facility] [facility] LIVER BATTERYon 10-18-2021 Albumin [Mass/Vol] 3.3 g/dL Low 3.5-5.7 [facility] Comment on above: Order Comment: No: D o not add to previous draw Performed By: #### 3 5200, 18559, 64499, 81029, 10481 ####[facility] ALKALINE PHOSPH 65 IU/L Normal 34-104 [facility] Comment on above: Order Comment: No: D o not add to previous draw Performed By: #### 3 5200, 47119, 28438, 97751, 20732 ####[facility] ALT [Catalytic activity/Vol] 14 U/L Normal 7-52 [facility] Comment on above: Order Comment: No: D o not add to previous draw Performed By: #### 3 5200, 80520, 88102, 89789, 09203 ####[facility] AST [Catalytic activity/Vol] 17 U/L Normal 13-39 [facility] Comment on above: Order Comment: No: D o not add to previous draw Performed By: #### 3 5200, 64925, 45343, 16090, 52313 ####[facility] [place] [address], [facility] Bilirubin [Mass/Vol] 0.3 mg/dL Normal 0.3-1.0 [facility] Comment on above: Order Comment: No: D o not add to previous draw Performed By: #### 3 5200, 91921, 18870, 44220, 52594 ####[facility] [place] [address], [facility] Bilirubin.direct [Mass/Vol] 0.1 mg/dL Normal 0.0-0.2 [facility] Comment on above: Order Comment: No: D o not add to previous draw Performed By: #### 3 5200, 20217, 77675, 73107, 86727 ####[facility] [facility] [place] [place] [address], [facility] Protein [Mass/Vol] 6.1 g/dL Normal 6.0-8.3 [facility] Comment on above: Order Comment: No: D o not add to previous draw Performed By: #### 3 5200, 86743, 62957, 06766, 21045 ####[facility] [facility] [place] [place] [address], [facility] MAGNESIUM BLOODon 10-18-2021 Magnesium [Mass/Vol] 1.8 mg/dL Low 1.9-2.7 [facility] Comment on above: Order Comment: No: D o not add to previous draw Performed By: #### 3 5200, 58821, 00621, 22705, 78998 ####[facility] [facility] [place] [place] [address], [facility] PHOSPHORUS BLOODon Phosphate [Mass/Vol] 2.8 mg/dL Normal 2.5-5.0 [facility] Comment on above: Order Comment: No: D o not add to previous draw Performed By: #### 3 5200, 82040, 47383, 04132, 94722 ####[facility] [facility].[address] POC GLUCOSE LABon 10-18-2021 Glucose [Mass/Vol] 127 mg/dL High 70-100 [facility] Comment on above: Performed By: #### 8 5499 ####[facility] [facility].[address] PORTABLE CHEST 1 VIEWon 10-09 PORTABLE CHEST 1 VIEW Normal [facility] Comment on above: Order Comment: Atele ctasis PROTHROMBIN TIMEon INR Coag (PPP) [Relative time] 1.12 {INR} Normal 0.91-1.16 [facility] Comment on above: Order Comment: No: D o not add to previous draw Result Comment: ACCC P RECOMMENDED INR FOR WARFARIN THERAPY CONDITION INRPROPHYLAXIS OF VENOUS THROMBOSIS 2-3(HIGH-RISK SURGERY)TREATMENT OF VENOUS THROMBOSIS 2-3TREATMENT OF PULMONARY EMBOLISM 2-3PREVENTION OF SYSTEMIC EMBOLISM: 2-3 ACUTE MYOCARDIAL INFARCTION TISSUE HEART VALVES VALVULAR HEART DISEASE ATRIAL FIBRILLATION RECURRENT SYSTEMIC EMBOLISMMECHANICAL HEART VALVE 2.5-3.5 FROM: ORAL ANTICOAGULANTS. MECHANISM OF ACTION, CLINICALEFFECTIVENESS, AND OPTIMAL THERAPEUTIC RANGE. [id number];108:231S-246S. Performed By: #### 5 6101, 49997 ####[facility] [facility] [address], [facility] PT Coag (PPP) [Time] 14.4 s Normal 12.3-14.8 [facility] Comment on above: Order Comment: No: D o not add to previous draw Result Comment: ALL RESULTS MUST BE INTERPRETED WITH RESPECT TO BLOOD DRAWING ARTIFACTOR DILUTION ERROR OF ANTICOAGULANT AT THE TIME OF SAMPLING. Performed By: #### 5 6101, 17671 ####[facility] [facility] [address], [facility] TROPONIN-Ion 10-18-2021 Troponin I.cardiac [Mass/Vol] 0.00 ng/mL Normal 0.00-0.04 [facility] Comment on above: Order Comment: No: D o not add to previous draw Result Comment: REFE RENCE RANGES: 0.00 - 0.04 ng/ml NORMAL 0.05 - 0.50 ng/ml INDETERMINATE > 0.50 ng/ml CONSISTENT WITH AN M.I. Performed By: #### 3 5200, 94000, 14094, 48923, 68669 ####[facility] CALCIUM IONIZEDon 10-01-2021 Calcium, Ionized, Serum 5.6 mg/dL Normal 4.5-5.6 [facility] Comment on above: Performed By: #### C BC #### [facility] [address] [place] [address] Dr. Terrence Gunderson MAGNESIUMon 09-30-2021 Magnesium [Mass/Vol] 1.9 mg/dL Normal 1.8-2.4 [facility] Comment on above: Performed By: #### C BC #### [facility] [address] [place] [address] Dr. Terrence Gunderson PROF CHEM 8 (BAS METB)on Anion gap [Moles/Vol] 9.0 mmol/L Normal [facility] Comment on above: Performed By: #### C BC #### [facility] [address] [place] [address] Dr. Terrence Gunderson Calcium [Mass/Vol] 9.0 mg/dL Normal 8.5-10.1 [facility] Comment on above: Performed By: #### C BC #### [facility] [address] [place] [address] Dr. Terrence Gunderson Chloride [Moles/Vol] 103 mmol/L Normal 98-107 [facility] Comment on above: Performed By: #### C BC #### [facility] [address] [address] [address] Terrence Gunderson CO2 [Moles/Vol] 31.3 mmol/L Normal 21.0-32.0 [facility] Comment on above: Performed By: #### C BC #### [facility] [address] [place] [address] Dr. Terrence Gunderson Creatinine [Mass/Vol] 0.80 mg/dL Normal 0.70-1.30 [facility] Comment on above: Performed By: #### C BC #### [facility] [address] [place] [address] Dr. Terrence Gunderson EGFR-AF BRUNEIAN >60 Normal >=60 [facility] Comment on above: Performed By: #### C BC #### [facility] [address] [place] [address] Dr. Terrence Gunderson EGFR-NON AF BRUNEIAN >60 Normal >=60 [facility] Comment on above: Performed By: #### C BC #### [facility] [address] [place] [address] Dr. Terrence Gunderson Glucose [Mass/Vol] 168 mg/dL Critically high 74-106 [facility] Comment on above: Performed By: #### C BC #### [facility] [address] [place] [address] Dr. Terrence Gunderson Potassium [Moles/Vol] 4.3 mmol/L Normal 3.5-5.1 [facility] Comment on above: Performed By: #### C BC #### [facility] [address] [place] [address] Dr. Terrence Gunderson Sodium [Moles/Vol] 139 mmol/L Normal 136-145 [facility] Comment on above: Performed By: #### C BC #### [facility] [address] [place] [address] Dr. Terrence Gunderson Urea nitrogen [Mass/Vol] 25.0 mg/dL Critically high 7.0-18.0 [facility] Comment on above: Performed By: #### C BC #### [facility] [address] [place] [address] Dr. Terrence Gunderson Urea nitrogen/Creatinine [Mass ratio] 31.2 mg/mg Normal [facility] Comment on above: Performed By: #### C BC #### [facility] [address] [place] [address] Dr. Terrence Gunderson HIPS BILATERAL 2 VWS WITH PE LVISon 09-13-2021 HIPS BILATERAL 2 VWS WITH PELVIS Normal [facility] Comment on above: Order Comment: Evalu ate CBC AUTO DIFFon 09-06-2021 BASO # 0.1 103/ul Normal 0.0-0.1 [facility] Comment on above: Performed By: #### C BC #### [facility] [address] [place] [address] Dr. Terrence Gunderson Basophils/100 WBC (Bld) 0.8 % Normal 0.2-2.0 [facility] Comment on above: Performed By: #### C BC #### [facility] [address] [place] [address] Dr. Terrence Gunderson EO # 0.1 103/ul Normal 0.0-0.7 [facility] Comment on above: Performed By: #### C BC #### [facility] [address] [place] [address] Dr. Terrence Gunderson Eosinophils/100 WBC (Bld) 1.9 % Normal 0.9-7.0 [facility] Comment on above: Performed By: #### C BC #### [facility] [address] [place] [address] Dr. Terrence Gunderson Erythrocyte distribution width (RBC) [Ratio] 13.9 % Normal 11.0-15.0 [facility] Comment on above: Performed By: #### C BC #### [facility] [address] [place] [address] Dr. Terrence Gunderson Hematocrit (Bld) [Volume fraction] 30.8 % Critically low 42.0-54.0 [facility] Comment on above: Performed By: #### C BC #### [facility] [address] [place] [address] Dr. Terrence Gunderson Hemoglobin (Bld) [Mass/Vol] 9.7 g/dL Critically low 14.0-18.0 [facility] Comment on above: Performed By: #### C BC #### [facility] [address] [place] [address] Dr. Terrence Gunderson IG # 0.02 10e3/ul Normal 0.00-0.03 [facility] Comment on above: Performed By: #### C BC #### [facility] [address] [place] [address] Dr. Terrence Gunderson IG % 0.3 % Normal 0.0-0.5 [facility] Comment on above: Performed By: #### C BC #### [facility] [address] [place] [address] Dr. Terrence Gunderson LYMPH # 1.9 103/ul Normal 1.2-3.8 [facility] Comment on above: Performed By: #### C BC #### [facility] [address] [place] [address] Dr. Terrence Gunderson Lymphocytes/100 WBC (Bld) 29.6 % Normal 20.5-60.0 [facility] Comment on above: Performed By: #### C BC #### [facility] [address] [place] [address] Dr. Terrence Gunderson MANUAL DIFF REQ NO Normal [facility] Comment on above: Performed By: #### C BC #### [facility] [address] [place] [address] Dr. Terrence Gunderson MCH (RBC) [Entitic mass] 28.0 pg Normal 25.9-34.0 [facility] Comment on above: Performed By: #### C BC #### [facility] [address] [place] [address] Dr. Terrence Gunderson MCHC (RBC) [Mass/Vol] 31.5 g/dL Normal 29.9-35.2 [facility] Comment on above: Performed By: #### C BC #### [facility] [address] [address] [address] Terrence Gunderson MCV (RBC) [Entitic vol] 89.0 fL Normal 80.0-94.0 [facility] Comment on above: Performed By: #### C BC #### [facility] [address] [address] [address] Terrence Gunderson MONO # 0.5 103/ul Normal 0.3-0.8 [facility] Comment on above: Performed By: #### C BC #### [facility] [address] [place] [address] Dr. Terrence Gunderson Monocytes/100 WBC (Bld) 7.3 % Normal 1.7-12.0 [facility] Comment on above: Performed By: #### C BC #### [facility] [address] [place] [address] Dr. Terrence Gunderson NEUT # 3.8 103/ul Normal 1.4-6.5 [facility] Comment on above: Performed By: #### C BC #### [facility] [address] [place] [address] Dr. Terrence Gunderson Neutrophils/100 WBC (Bld) 60.1 % Normal 43.0-75.0 [facility] Comment on above: Performed By: #### C BC #### [facility] [address] [place] [address] Dr. Terrence Gunderson Platelet mean volume (Bld) [Entitic vol] 10.2 fL Normal 9.5-13.5 [facility] Comment on above: Performed By: #### C BC #### [facility] [address] [place] [address] Dr. Terrence Gunderson PLT 266 103/ul Normal 150-450 [facility] Comment on above: Performed By: #### C BC #### [facility] [address] [place] [address] Dr. Terrence Gunderson RBC 3.46 106/ul Critically low 4.70-6.10 [facility] Comment on above: Performed By: #### C BC #### [facility] [address] [place] [address] Dr. Terrence Gunderson WBC 6.3 103/ul Normal 4.0-11.0 [facility] Comment on above: Performed By: #### C BC #### [facility] [address] [place] [address] Dr. Terrence Gunderson MAGNESIUMon 09-06-2021 Magnesium [Mass/Vol] 2.1 mg/dL Normal 1.8-2.4 [facility] Comment on above: Performed By: #### M G, BMP #### [facility] [address] [place] [address] Dr. Terrence Gunderson PROF CHEM 8 (BAS METB)on Anion gap [Moles/Vol] 10.4 mmol/L Normal [facility] Comment on above: Performed By: #### M G, BMP #### [facility] [address] [place] [address] Dr. Terrence Gunderson Calcium [Mass/Vol] 8.9 mg/dL Normal 8.5-10.1 [facility] Comment on above: Performed By: #### M G, BMP #### [facility] [address] [place] [address] Dr. Terrence Gunderson Chloride [Moles/Vol] 100 mmol/L Normal 98-107 [facility] Comment on above: Performed By: #### M G, BMP #### [facility] [address] [place] [address] Dr. Terrence Gunderson CO2 [Moles/Vol] 29.3 mmol/L Normal 21.0-32.0 [facility] Comment on above: Performed By: #### M G, BMP #### [facility] [address] [place] [address] Dr. Terrence Gunderson Creatinine [Mass/Vol] 0.93 mg/dL Normal 0.70-1.30 [facility] Comment on above: Performed By: #### M G, BMP #### [facility] [address] [place] [address] Dr. Terrence Gunderson EGFR-AF BRUNEIAN >60 Normal >=60 [facility] Comment on above: Performed By: #### M G, BMP #### [facility] [address] [address] [address] Terrence Gunderson EGFR-NON AF BRUNEIAN >60 Normal >=60 [facility] Comment on above: Performed By: #### M G, BMP #### [facility] [address] [address] [address] Terrence Gunderson Glucose [Mass/Vol] 149 mg/dL Critically high 74-106 [facility] Comment on above: Performed By: #### M G, BMP #### [facility] [address] [address] [address] Terrence Gunderson Potassium [Moles/Vol] 4.7 mmol/L Normal 3.5-5.1 [facility] Comment on above: Performed By: #### M G, BMP #### [facility] [address] [address] [address] Terrence Gunderson Sodium [Moles/Vol] 135 mmol/L Critically low 136-145 [facility] Comment on above: Performed By: #### M G, BMP #### [facility] [address] [address] [address] Terrence Gunderson Urea nitrogen [Mass/Vol] 21.0 mg/dL Critically high 7.0-18.0 [facility] Comment on above: Performed By: #### M G, BMP #### [facility] [address] [address] [address] Terrence Gunderson Urea nitrogen/Creatinine [Mass ratio] 22.6 mg/mg Normal [facility] Comment on above: Performed By: #### M G, BMP #### [facility] [address] [address] [address] Terrence Gunderson BASIC METABOLIC PANELon 04-2 Calcium [Mass/Vol] 8.7 mg/dL Normal 8.6-10.3 [facility] Comment on above: Order Comment: No: D o not add to previous draw Performed By: #### 0 0071 ####[facility] [facility] [place] [address], [facility] Chloride [Moles/Vol] 100 mmol/L Normal 98-107 [facility] Comment on above: Order Comment: No: D o not add to previous draw Performed By: #### 0 0071 ####[facility] [place] [address], [facility] CO2 [Moles/Vol] 29 mmol/L Normal 21-31 [facility] Comment on above: Order Comment: No: D o not add to previous draw Performed By: #### 0 0071 ####[facility] [facility] [place] [address], [facility] Creatinine [Mass/Vol] 1.20 mg/dL Normal 0.70-1.30 [facility] Comment on above: Order Comment: No: D o not add to previous draw Performed By: #### 0 0071 ####[facility] [facility] [place] [address], [facility] GFR/1.73 sq M.predicted among blacks MDRD (S/P/Bld) [Vol rate/Area] mL/min/{1.73_m2} Normal >60 [facility] Comment on above: Order Comment: No: D o not add to previous draw Performed By: #### 0 0071 ####[facility] [facility] [place] [address], [facility] GFR/1.73 sq M.predicted among non-blacks MDRD (S/P/Bld) [Vol rate/Area] mL/min/{1.73_m2} Normal >60 [facility] Comment on above: Order Comment: No: D o not add to previous draw Performed By: #### 0 0071 ####[facility] [facility] [id number], [facility] Glucose [Mass/Vol] 280 mg/dL High 70-100 [facility] Comment on above: Order Comment: No: D o not add to previous draw Performed By: #### 0 0071 ####[facility] Potassium [Moles/Vol] 4.9 mmol/L Normal 3.5-5.1 [facility] Comment on above: Order Comment: No: D o not add to previous draw Performed By: #### 0 1 ####[facility] [facility] Sodium [Moles/Vol] 135 mmol/L Low 136-145 [facility] Comment on above: Order Comment: No: D o not add to previous draw Performed By: #### 0 1 ####[facility] [facility].[address] Urea nitrogen [Mass/Vol] 51 mg/dL High 7-25 [facility] Comment on above: Order Comment: No: D o not add to previous draw Performed By: #### 0 1 ####[facility] CBC COMPLETE BLOOD COUNTon 0 - Erythrocyte distribution width (RBC) [Ratio] 13.8 % Normal 11.5-15.0 [facility] Comment on above: Order Comment: No: D o not add to previous draw Performed By: #### 5 0608 ####[facility] Hematocrit (Bld) [Volume fraction] 29.8 % Low 39.0-50.0 [facility] Comment on above: Order Comment: No: D o not add to previous draw Performed By: #### 5 0608 ####[facility] Hemoglobin (Bld) [Mass/Vol] 9.3 g/dL Low 13.0-17.0 [facility] Comment on above: Order Comment: No: D o not add to previous draw Performed By: #### 5 0608 ####[facility] [facility].[address] MCH (RBC) [Entitic mass] 27.6 pg Normal 27.0-33.0 [facility] Comment on above: Order Comment: No: D o not add to previous draw Performed By: #### 5 0608 ####[facility] MCHC (RBC) [Mass/Vol] 31.2 g/dL Low 32.0-35.0 [facility] Comment on above: Order Comment: No: D o not add to previous draw Performed By: #### 5 0608 ####[facility] MCV (RBC) [Entitic vol] 88.4 fL Normal 82.0-98.0 [facility] Comment on above: Order Comment: No: D o not add to previous draw Performed By: #### 5 0608 ####[facility] Nucleated RBC/100 WBC (Bld) [Ratio] 0 % Normal 0-0 [facility] Comment on above: Order Comment: No: D o not add to previous draw Performed By: #### 5 0608 ####[facility] PLAT CNT 249 10*3/uL Normal 150-400 [facility] Comment on above: Order Comment: No: D o not add to previous draw Performed By: #### 5 0608 ####[facility] [place] [address] RBC (Bld) [#/Vol] 3.37 10*6/uL Low 4.20-5.70 [facility] Comment on above: Order Comment: No: D o not add to previous draw Performed By: #### 5 0608 ####[facility] [place] [address], [facility] WBC (Bld) [#/Vol] 7.23 10*3/uL Normal 4.00-10.60 [facility] Comment on above: Order Comment: No: D o not add to previous draw Performed By: #### 5 0608 ####[facility] [facility] POC GLUCOSE LABon 08-29-2021 Glucose [Mass/Vol] 274 mg/dL High 70-100 [facility] Comment on above: Performed By: #### 8 5499 ####[facility] [facility] [address], [facility] Glucose [Mass/Vol] 379 mg/dL High 70-100 [facility] Comment on above: Performed By: #### 8 5499 ####[facility] [facility] ARTERIAL BLOOD GAS W/COOXon 08-28-2021 BASE EXCESS 6 mmol/L High -2-3 [facility] Comment on above: Performed By: #### 4 0055 ####[place] [address] [facility].[address] COHB 0.8 % Normal 0.0-1.5 [facility] Comment on above: Performed By: #### 4 0055 ####[facility] [facility].[address] DELIVERY SYSTEMS NASAL CANNULA Normal [facility] Comment on above: Performed By: #### 4 0055 ####[facility] [facility] [address], [facility] HCO3 (Bld) [Moles/Vol] 31 mmol/L Critically high 21-28 [facility] Comment on above: Performed By: #### 4 0055 ####[facility] [facility] [place] [address], [facility] LPM 2.0 LPM Normal [facility] Comment on above: Performed By: #### 4 0055 ####[facility] [place] [address], [facility] METHB 1.0 % Normal 0.0-1.5 [facility] Comment on above: Performed By: #### 4 0055 ####[facility] [place] [address], [facility] Oxygen (Bld) [Partial pressure] 108 mm[Hg] Normal 83-108 [facility] Comment on above: Performed By: #### 4 0055 ####[facility] [place] [address], [facility] Oxygen saturation in Blood 95.6 % Normal 94.0-97.0 [facility] Comment on above: Performed By: #### 4 0055 ####[facility] [place] [address], [facility] PCO2 45 mmHg Normal 35-45 [facility] Comment on above: Performed By: #### 4 0055 ####[facility] [place] [address], [facility] pH (Bld) 7.45 [pH] Normal 7.35-7.45 [facility] Comment on above: Performed By: #### 4 0055 ####[facility] [place] [address], [facility] THB 9.6 g/dL Low 12.0-16.3 [facility] Comment on above: Performed By: #### 4 0055 ####[facility] [place] [address], [facility] BASIC METABOLIC PANELon 04-2 0-2021 Calcium [Mass/Vol] 8.7 mg/dL Normal 8.6-10.3 [facility] Comment on above: Order Comment: No: D o not add to previous draw Performed By: #### 0 0071 ####[facility] [place] [address], [facility] Chloride [Moles/Vol] 98 mmol/L Normal 98-107 [facility] Comment on above: Order Comment: No: D o not add to previous draw Performed By: #### 0 0071 ####[facility] [place] [address], [facility] CO2 [Moles/Vol] 28 mmol/L Normal 21-31 [facility] Comment on above: Order Comment: No: D o not add to previous draw Performed By: #### 0 0071 ####[facility] [place] [address], [facility] Creatinine [Mass/Vol] 1.37 mg/dL High 0.70-1.30 [facility] Comment on above: Order Comment: No: D o not add to previous draw Performed By: #### 0 0071 ####[facility] [facility] [place] [place] [address], [facility] eGFR- non- 53 ml/min/1.73sq m Abnormal >60 [facility] Comment on above: Order Comment: No: D o not add to previous draw Performed By: #### 0 0071 ####[facility] [facility] [place] [place] [address], [facility] GFR/1.73 sq M.predicted among blacks MDRD (S/P/Bld) [Vol rate/Area] mL/min/{1.73_m2} Normal >60 [facility] Comment on above: Order Comment: No: D o not add to previous draw Performed By: #### 0 0071 ####[facility] [place] [address], [facility] Glucose [Mass/Vol] 142 mg/dL High 70-100 [facility] Comment on above: Order Comment: No: D o not add to previous draw Performed By: #### 0 0071 ####[facility] [place] [address], [place] Potassium [Moles/Vol] 4.4 mmol/L Normal 3.5-5.1 [facility] Comment on above: Order Comment: No: D o not add to previous draw Performed By: #### 0 0071 ####[facility] [place] [address], [place] Sodium [Moles/Vol] 134 mmol/L Low 136-145 [facility] Comment on above: Order Comment: No: D o not add to previous draw Performed By: #### 0 0071 ####[facility] [place] [address], [place] Urea nitrogen [Mass/Vol] 52 mg/dL High 7-25 [facility] Comment on above: Order Comment: No: D o not add to previous draw Performed By: #### 0 0071 ####[facility] [place] [address], [place] Calcium [Mass/Vol] 9.6 mg/dL Normal 8.6-10.3 [facility] Comment on above: Order Comment: No: D o not add to previous draw Performed By: #### 4 1000, [id number], [address] ####[facility] [place] [address], [place] Chloride [Moles/Vol] 97 mmol/L Low 98-107 [facility] Comment on above: Order Comment: No: D o not add to previous draw Performed By: #### 4 1000, [id number], [id number] ####[facility] [place] [address], [place] CO2 [Moles/Vol] 30 mmol/L Normal 21-31 [facility] Comment on above: Order Comment: No: D o not add to previous draw Performed By: #### 4 1000, , 10702 ####[facility] [place] [address], [place] Creatinine [Mass/Vol] 1.17 mg/dL Normal 0.70-1.30 [facility] Comment on above: Order Comment: No: D o not add to previous draw Performed By: #### 4 1000, , 19455 ####[facility] [place] [address], [place] GFR/1.73 sq M.predicted among blacks MDRD (S/P/Bld) [Vol rate/Area] mL/min/{1.73_m2} Normal >60 [facility] Comment on above: Order Comment: No: D o not add to previous draw Performed By: #### 4 1000, , 68552 ####[facility] [place] [address], [facility] GFR/1.73 sq M.predicted among non-blacks MDRD (S/P/Bld) [Vol rate/Area] mL/min/{1.73_m2} Normal >60 [facility] Comment on above: Order Comment: No: D o not add to previous draw Performed By: #### 4 1000, , 41607 ####[facility] [place] [address], [place] Glucose [Mass/Vol] 110 mg/dL High 70-100 [facility] Comment on above: Order Comment: No: D o not add to previous draw Performed By: #### 4 1000, , 70014 ####[facility] [place] [address], [place] Potassium [Moles/Vol] 4.4 mmol/L Normal 3.5-5.1 [facility] Comment on above: Order Comment: No: D o not add to previous draw Performed By: #### 4 1000, , 18202 ####[facility] Sodium [Moles/Vol] 137 mmol/L Normal 136-145 [facility] Comment on above: Order Comment: No: D o not add to previous draw Performed By: #### 4 1000, 21130, 57476 ####[facility] Urea nitrogen [Mass/Vol] 51 mg/dL High 7-25 [facility] Comment on above: Order Comment: No: D o not add to previous draw Performed By: #### 4 1000, 82937, 95827 ####[facility] BNP (B-TYPE NATRIURETIC PEPT CHANNING)on 08-28-2021 Natriuretic peptide B (Bld) [Mass/Vol] 18 pg/mL Normal 0-100 [facility] Comment on above: Order Comment: Yes: Add to Previous draw if able Result Comment: Give n the appropriate clinical setting a BNP result of >100 pg/mLindicates congestive heart failure. Performed By: #### 8 5123 ####[facility] CBC COMPLETE BLOOD COUNTon 0 08-28-2021 Erythrocyte distribution width (RBC) [Ratio] 13.8 % Normal 11.5-15.0 [facility] Comment on above: Order Comment: No: D o not add to previous draw Performed By: #### 5 0608 ####[facility] Hematocrit (Bld) [Volume fraction] 29.2 % Low 39.0-50.0 [facility] Comment on above: Order Comment: No: D o not add to previous draw Performed By: #### 5 0608 ####[facility] [facility] [place] [address], [facility] Hemoglobin (Bld) [Mass/Vol] 9.2 g/dL Low 13.0-17.0 [facility] Comment on above: Order Comment: No: D o not add to previous draw Performed By: #### 5 0608 ####[facility] MCH (RBC) [Entitic mass] 27.4 pg Normal 27.0-33.0 [facility] Comment on above: Order Comment: No: D o not add to previous draw Performed By: #### 5 0608 ####[facility] MCHC (RBC) [Mass/Vol] 31.5 g/dL Low 32.0-35.0 [facility] Comment on above: Order Comment: No: D o not add to previous draw Performed By: #### 5 0608 ####[facility] MCV (RBC) [Entitic vol] 86.9 fL Normal 82.0-98.0 [facility] Comment on above: Order Comment: No: D o not add to previous draw Performed By: #### 5 0608 ####[place] [address] [address] Nucleated RBC/100 WBC (Bld) [Ratio] 0 % Normal 0-0 [facility] Comment on above: Order Comment: No: D o not add to previous draw Performed By: #### 5 0608 ####[facility] PLAT CNT 209 10*3/uL Normal 150-400 [facility] Comment on above: Order Comment: No: D o not add to previous draw Performed By: #### 5 0608 ####[facility] [place] [address] RBC (Bld) [#/Vol] 3.36 10*6/uL Low 4.20-5.70 [facility] Comment on above: Order Comment: No: D o not add to previous draw Performed By: #### 5 0608 ####[facility] [place] [address], [facility] WBC (Bld) [#/Vol] 8.71 10*3/uL Normal 4.00-10.60 [facility] Comment on above: Order Comment: No: D o not add to previous draw Performed By: #### 5 0608 ####[facility] CBC W/DIFFon 08-28-2021 ABS IMM GRANS 0.0 10*3/uL Normal 0.0-0.2 [facility] Comment on above: Performed By: #### 5 0103 ####[facility] [place] [address], [facility] ABS NEUTROPHILS 4.1 10*3/uL Normal 1.6-7.6 [facility] Comment on above: Performed By: #### 5 0103 ####[facility] Basophils (Bld) [#/Vol] 0.1 10*3/uL Normal 0.0-0.2 [facility] Comment on above: Performed By: #### 5 3 ####[facility] [facility] [place] [address], [facility] Basophils/100 WBC (Bld) 1.0 % Normal 0.0-1.0 [facility] Comment on above: Performed By: #### 5 0103 ####[facility] [place] [address], [facility] Eosinophils (Bld) [#/Vol] 0.4 10*3/uL Normal 0.0-0.5 [facility] Comment on above: Performed By: #### 5 0103 ####[facility] [facility] [place] [address], [facility] Eosinophils/100 WBC (Bld) 4.3 % Normal 0.0-6.0 [facility] Comment on above: Performed By: #### 5 0103 ####[facility] [facility].[address] Erythrocyte distribution width (RBC) [Ratio] 13.7 % Normal 11.5-15.0 [facility] Comment on above: Performed By: #### 5 0103 ####[facility] [facility] [place] [address], [facility] Hematocrit (Bld) [Volume fraction] 32.0 % Low 39.0-50.0 [facility] Comment on above: Performed By: #### 3 ####[address] Hemoglobin (Bld) [Mass/Vol] 10.1 g/dL Low 13.0-17.0 [facility] Comment on above: Performed By: #### 3 ####[place] [address] [facility].[address] IMMATURE GRANS 0.4 % Normal 0.0-1.0 [facility] Comment on above: Performed By: #### 3 ####[facility] [facility] [place] [address], [facility] Lymphocytes (Bld) [#/Vol] 2.9 10*3/uL Normal 1.2-4.0 [facility] Comment on above: Performed By: #### 5 3 ####[place] [address], [facility] Lymphocytes/100 WBC (Bld) 34.3 % Normal 20.0-45.0 [facility] Comment on above: Performed By: #### 5 3 ####[facility] MCH (RBC) [Entitic mass] 27.6 pg Normal 27.0-33.0 [facility] Comment on above: Performed By: #### 5 0103 ####[facility] MCHC (RBC) [Mass/Vol] 31.6 g/dL Low 32.0-35.0 [facility] Comment on above: Performed By: #### 5 0103 ####[facility] MCV (RBC) [Entitic vol] 87.4 fL Normal 82.0-98.0 [facility] Comment on above: Performed By: #### 5 0103 ####[facility] Monocytes (Bld) [#/Vol] 0.9 10*3/uL Normal 0.1-1.0 [facility] Comment on above: Performed By: #### 5 0103 ####[facility] MONOS 10.2 % Normal 5.0-12.0 [facility] Comment on above: Performed By: #### 5 0103 ####[facility] Neutrophils/100 WBC (Bld) 49.8 % Normal 40.0-72.0 [facility] Comment on above: Performed By: #### 5 0103 ####[facility] Nucleated RBC/100 WBC (Bld) [Ratio] 0 % Normal 0-0 [facility] Comment on above: Performed By: #### 5 0103 ####[facility] PLAT CNT 266 10*3/uL Normal 150-400 [facility] Comment on above: Performed By: #### 5 0103 ####[facility] [facility] [address], [facility] RBC (Bld) [#/Vol] 3.66 10*6/uL Low 4.20-5.70 [facility] Comment on above: Performed By: #### 5 0103 ####[facility] [facility] [place] [place] [address], [facility] WBC (Bld) [#/Vol] 8.30 10*3/uL Normal 4.00-10.60 [facility] Comment on above: Performed By: #### 5 0103 ####[facility] [facility] [address], [facility] MAGNESIUM BLOODon 08-28-2021 Magnesium [Mass/Vol] 2.4 mg/dL Normal 1.9-2.7 [facility] Comment on above: Order Comment: No: D o not add to previous draw Performed By: #### 4 1000, 96734, 93245 ####[facility] [facility] [address], [facility] PHOSPHORUS BLOODon Phosphate [Mass/Vol] 4.9 mg/dL Normal 2.5-5.0 [facility] Comment on above: Order Comment: No: D o not add to previous draw Performed By: #### 4 1000, 28254, 38118 ####[facility] [place] [address], [facility] POC GLUCOSE LABon 08-28-2021 Glucose [Mass/Vol] 179 mg/dL High 70-100 [facility] Comment on above: Performed By: #### 8 5499 ####[facility] [facility] [address], [facility] Glucose [Mass/Vol] 255 mg/dL High 70-100 [facility] Comment on above: Performed By: #### 8 5499 ####[facility] [place] [address], [facility] Glucose [Mass/Vol] 171 mg/dL High 70-100 [facility] Comment on above: Performed By: #### 8 5499 ####[facility] [place] [address], [facility] Glucose [Mass/Vol] 120 mg/dL High 70-100 [facility] Comment on above: Performed By: #### 8 5499 ####[facility] [facility] [address], [facility] PORTABLE CHEST 1 VIEWon 08-10 PORTABLE CHEST 1 VIEW Normal [facility] Comment on above: Order Comment: Jean perrin APTTon 08-27-2021 aPTT Coag (Bld) [Time] 82.2 s Critically high 25.0-35.0 [facility] Comment on above: Result Comment: CLIN ICAL SIGNIFICANCE OF THE PTT RESULT IS QUESTIONABLE IN THE PRESENCEOF HEPARIN.Result checked and called. Accurately read back by Samara Thakur RN, [id number] Performed By: #### 5 7307, 24351 ####[facility] [facility] [address], [facility] aPTT Coag (Bld) [Time] 168.9 s Critically high 25.0-35.0 [facility] Comment on above: Order Comment: No: D o not add to previous draw Result Comment: RESU LTS CHECKED AND CALLED. ACCURATELY READ BACK BY JOSE BARRON at 2350CLINICAL SIGNIFICANCE OF THE PTT RESULT IS QUESTIONABLE IN THE PRESENCEOF HEPARIN.Rivaroxaban and Apixaban will interfere with the anti Xa assay used tomonitor UFH and LMWH. Performed By: #### 3 5507, 88514 ####[facility] [facility] [address], [facility] BASIC METABOLIC PANELon 08-09 Calcium [Mass/Vol] 9.4 mg/dL Normal 8.6-10.3 [facility] Comment on above: Order Comment: No: D o not add to previous drawMissed twice Performed By: #### 0 0071 ####[facility] [place] [address], [facility] Chloride [Moles/Vol] 99 mmol/L Normal 98-107 [facility] Comment on above: Order Comment: No: D o not add to previous drawMissed twice Performed By: #### 0 0071 ####[facility] [place] [address], [facility] CO2 [Moles/Vol] 23 mmol/L Normal 21-31 [facility] Comment on above: Order Comment: No: D o not add to previous drawMissed twice Performed By: #### 0 0071 ####[facility] [place] [address], [facility] Creatinine [Mass/Vol] 1.23 mg/dL Normal 0.70-1.30 [facility] Comment on above: Order Comment: No: D o not add to previous drawMissed twice Performed By: #### 0 0071 ####[facility] [place] [address], [facility] eGFR- non- 60 ml/min/1.73sq m Abnormal >60 [facility] Comment on above: Order Comment: No: D o not add to previous drawMissed twice Performed By: #### 0 0071 ####[facility] [place] [address], [facility] GFR/1.73 sq M.predicted among blacks MDRD (S/P/Bld) [Vol rate/Area] mL/min/{1.73_m2} Normal >60 [facility] Comment on above: Order Comment: No: D o not add to previous drawMissed twice Performed By: #### 0 0071 ####[facility] [place] [address], [place] Glucose [Mass/Vol] 137 mg/dL High 70-100 [facility] Comment on above: Order Comment: No: D o not add to previous drawMissed twice Performed By: #### 0 0071 ####[facility] [place] [address], [place] Potassium [Moles/Vol] 5.6 mmol/L High 3.5-5.1 [facility] Comment on above: Order Comment: No: D o not add to previous drawMissed twice Performed By: #### 0 0071 ####[facility] [place] [address], [place] Sodium [Moles/Vol] 132 mmol/L Low 136-145 [facility] Comment on above: Order Comment: No: D o not add to previous drawMissed twice Performed By: #### 0 0071 ####[facility] [place] [address], [place] Urea nitrogen [Mass/Vol] 57 mg/dL High 7-25 [facility] Comment on above: Order Comment: No: D o not add to previous drawMissed twice Performed By: #### 0 0071 ####[facility] [place] [address], [place] POC GLUCOSE LABon 08-27-2021 Glucose [Mass/Vol] 278 mg/dL High 70-100 [facility] Comment on above: Performed By: #### 8 5499 ####[facility] [place] [address], [place] Glucose [Mass/Vol] 165 mg/dL High 70-100 [facility] Comment on above: Performed By: #### 8 5499 ####[facility] [place] [address], [place] Glucose [Mass/Vol] 157 mg/dL High 70-100 [facility] Comment on above: Performed By: #### 8 5499 ####[facility] [facility] [address], [facility] Glucose [Mass/Vol] 134 mg/dL High 70-100 [facility] Comment on above: Performed By: #### 8 5499 ####[facility] [facility].[address] UFH HEPARIN ASSAYon 08-28-19 22 UNFRACTIONATED HEPARIN 0.62 IU/mL Normal 0.30-0.70 [facility] Comment on above: Order Comment: Marie silva John Costa. Notified Result Comment: [place] roxaban and Apixaban will interfere with the anti Xa assay used tomonitor UFH and LMWH. Performed By: #### 5 7307, 81200 ####[facility] UNFRACTIONATED HEPARIN 0.76 IU/mL High 0.30-0.70 [facility] Comment on above: Result Comment: [place] roxaban and Apixaban will interfere with the anti Xa assay used tomonitor UFH and LMWH.RESULTS CHECKED AND CALLED. ACCURATELY READ BACK BY JOSE BARRON at 2350 Performed By: #### 3 7637, 17506 ####[facility] BASIC METABOLIC PANELon 08-09 Calcium [Mass/Vol] 9.6 mg/dL Normal 8.6-10.3 [facility] Comment on above: Performed By: #### 0 0071, 24415 ####[facility] [facility].[address] Chloride [Moles/Vol] 93 mmol/L Low 98-107 [facility] Comment on above: Performed By: #### 0 0071, 42230 ####[facility] [place] [address], [facility] CO2 [Moles/Vol] 26 mmol/L Normal 21-31 [facility] Comment on above: Performed By: #### 0 70, 40210 ####[facility] [place] [address], [facility] Creatinine [Mass/Vol] 1.45 mg/dL High 0.70-1.30 [facility] Comment on above: Performed By: #### 0 70, 14219 ####[facility] [place] [address], [facility] eGFR- 60 ml/min/1.73sq m Abnormal >60 [facility] Comment on above: Performed By: #### 0 70, 45331 ####[facility] [place] [address], [facility] eGFR- non- 50 ml/min/1.73sq m Abnormal >60 [facility] Comment on above: Performed By: #### 0 70, 30402 ####[facility] [place] [address], [facility] Glucose [Mass/Vol] 214 mg/dL High 70-100 [facility] Comment on above: Performed By: #### 0 70, 37185 ####[facility] [place] [address], [facility] Potassium [Moles/Vol] 4.8 mmol/L Normal 3.5-5.1 [facility] Comment on above: Performed By: #### 0 007, 88968 ####[facility] [id number], [facility] Sodium [Moles/Vol] 133 mmol/L Low 136-145 [facility] Comment on above: Performed By: #### 0 70, 14038 ####[facility] [place] [address], [place] Urea nitrogen [Mass/Vol] 57 mg/dL High 7-25 [facility] Comment on above: Performed By: #### 0 0071, 04884 ####[facility] [place] [address], [place] HEMATOCRITon 08-26-2021 Hematocrit (Bld) [Volume fraction] 34.0 % Low 39.0-50.0 [facility] Comment on above: Order Comment: No: D o not add to previous draw Performed By: #### 9 2088, 47698 ####[facility] [place] [address], [place] HEMOGLOBINon 08-26-2021 Hemoglobin (Bld) [Mass/Vol] 11.4 g/dL Low 13.0-17.0 [facility] Comment on above: Order Comment: No: D o not add to previous draw Performed By: #### 9 2088, 61696 ####[facility] [place] [address], [place] POC GLUCOSE LABon 08-26-2021 Glucose [Mass/Vol] 146 mg/dL High 70-100 [facility] Comment on above: Performed By: #### 8 5499 ####[facility] [place] [address], [place] Glucose [Mass/Vol] 196 mg/dL High 70-100 [facility] Comment on above: Performed By: #### 8 5499 ####[facility] [place] [address], [place] Glucose [Mass/Vol] 183 mg/dL High 70-100 [facility] Comment on above: Performed By: #### 8 5499 ####[facility] [place] [address], [place] Glucose [Mass/Vol] 308 mg/dL High 70-100 [facility] Comment on above: Performed By: #### 8 5499 ####[facility] TROPONIN-Ion 08-26-2021 Troponin I.cardiac [Mass/Vol] 0.03 ng/mL Normal 0.00-0.04 [facility] Comment on above: Order Comment: No: D o not add to previous draw Result Comment: REFE RENCE RANGES: 0.00 - 0.04 ng/ml NORMAL 0.05 - 0.50 ng/ml INDETERMINATE > 0.50 ng/ml CONSISTENT WITH AN M.I. Performed By: #### 0 0071, 42270 ####[facility] [facility].[address] UFH HEPARIN ASSAYon 08-27-19 UNFRACTIONATED HEPARIN 0.61 IU/mL Normal 0.30-0.70 [facility] Comment on above: Order Comment: This order is a replacement of the rejected order with accession [id number]. Result Comment: [place] roxaban and Apixaban will interfere with the anti Xa assay used tomonitor UFH and LMWH. Performed By: #### 3 0477 ####[facility] [facility].[address] US ABDOMEN LIMITED FOR ASCIT ESon 08-26-2021 US ABDOMEN LIMITED FOR ASCITES Normal [facility] Comment on above: Order Comment: [place] Documentation Only APTTon 08-25-2021 aPTT Coag (Bld) [Time] 94.6 s Critically high 25.0-35.0 [facility] Comment on above: Order Comment: No: D o not add to previous draw Result Comment: CLIN ICAL SIGNIFICANCE OF THE PTT RESULT IS QUESTIONABLE IN THE PRESENCEOF HEPARIN.Result checked and called. Accurately read back by Jo Figueroa RNat [id number] Performed By: #### 3 4787, 12394 ####[facility] [facility].[address] BASIC METABOLIC PANELon - Calcium [Mass/Vol] 9.4 mg/dL Normal 8.6-10.3 [facility] Comment on above: Order Comment: No: D o not add to previous draw Performed By: #### 0 0071 ####[facility] [place] [address], [facility] Chloride [Moles/Vol] 91 mmol/L Low 98-107 [facility] Comment on above: Order Comment: No: D o not add to previous draw Performed By: #### 0 0071 ####[facility] [facility] [place] [address], [facility] CO2 [Moles/Vol] 30 mmol/L Normal 21-31 [facility] Comment on above: Order Comment: No: D o not add to previous draw Performed By: #### 0 0071 ####[facility] [facility] [address], [facility] Creatinine [Mass/Vol] 1.06 mg/dL Normal 0.70-1.30 [facility] Comment on above: Order Comment: No: D o not add to previous draw Performed By: #### 0 0071 ####[facility] [facility] [place] [place] [address], [facility] GFR/1.73 sq M.predicted among blacks MDRD (S/P/Bld) [Vol rate/Area] mL/min/{1.73_m2} Normal >60 [facility] Comment on above: Order Comment: No: D o not add to previous draw Performed By: #### 0 0071 ####[facility] [facility] [id number], [facility] GFR/1.73 sq M.predicted among non-blacks MDRD (S/P/Bld) [Vol rate/Area] mL/min/{1.73_m2} Normal >60 [facility] Comment on above: Order Comment: No: D o not add to previous draw Performed By: #### 0 0071 ####[facility] [place] [address], [place] Glucose [Mass/Vol] 256 mg/dL High 70-100 [facility] Comment on above: Order Comment: No: D o not add to previous draw Performed By: #### 0 0071 ####[facility] [place] [address], [place] Potassium [Moles/Vol] 4.2 mmol/L Normal 3.5-5.1 [facility] Comment on above: Order Comment: No: D o not add to previous draw Performed By: #### 0 0071 ####[facility] [place] [address], [place] Sodium [Moles/Vol] 131 mmol/L Low 136-145 [facility] Comment on above: Order Comment: No: D o not add to previous draw Performed By: #### 0 0071 ####[facility] [place] [address], [place] Urea nitrogen [Mass/Vol] 57 mg/dL High 7-25 [facility] Comment on above: Order Comment: No: D o not add to previous draw Performed By: #### 0 0071 ####[facility] [place] [address], [place] POC GLUCOSE LABon 08-25-2021 Glucose [Mass/Vol] 199 mg/dL High 70-100 [facility] Comment on above: Performed By: #### 8 5499 ####[facility] [place] [address], [place] Glucose [Mass/Vol] 183 mg/dL High 70-100 [facility] Comment on above: Performed By: #### 8 5499 ####[facility] [place] [address], [place] Glucose [Mass/Vol] 185 mg/dL High 70-100 [facility] Comment on above: Performed By: #### 8 5499 ####[facility] [place] [address], [facility] Glucose [Mass/Vol] 273 mg/dL High 70-100 [facility] Comment on above: Performed By: #### 8 5499 ####[facility] [facility] [place] [place] [address], [facility] UFH HEPARIN ASSAYon 08-26-19 UNFRACTIONATED HEPARIN 0.83 IU/mL High 0.30-0.70 [facility] Comment on above: Result Comment: Kylie roxaban and Apixaban will interfere with the anti Xa assay used tomonitor UFH and LMWH. Performed By: #### 3 0477 ####[facility] [facility].[address] UNFRACTIONATED HEPARIN 0.80 IU/mL High 0.30-0.70 [facility] Comment on above: Result Comment: Kylie roxaban and Apixaban will interfere with the anti Xa assay used tomonitor UFH and LMWH. Performed By: #### 3 0477, [id number] ####[facility] [facility] [place] [address], [facility] APTTon 08-24-2021 aPTT Coag (Bld) [Time] 154.0 s Critically high 25.0-35.0 [facility] Comment on above: Order Comment: No: D o not add to previous draw Result Comment: CLIN ICAL SIGNIFICANCE OF THE PTT RESULT IS QUESTIONABLE IN THE PRESENCEOF HEPARIN.Results called. Accurately read back by Jose Doyle,,RN, CVU 3CD pt's nurse, at 2254, . Performed By: #### 3 0477, [id number] ####[facility] [place] [address], [facility] aPTT Coag (Bld) [Time] 150.2 s Critically high 25.0-35.0 [facility] Comment on above: Order Comment: No: D o not add to previous draw Result Comment: CLIN ICAL SIGNIFICANCE OF THE PTT RESULT IS QUESTIONABLE IN THE PRESENCEOF HEPARIN.RESULTS CHECKED AND CALLED. ACCURATELY READ BACK BY YULIA HERBERT AT 1523 Performed By: #### 5 [id number], [id number] ####[facility] [place] [address], [facility] aPTT Coag (Bld) [Time] 163.5 s Critically high 25.0-35.0 [facility] Comment on above: Order Comment: No: D o not add to previous draw Result Comment: CLIN ICAL SIGNIFICANCE OF THE PTT RESULT IS QUESTIONABLE IN THE PRESENCEOF HEPARIN.Result checked and called. Accurately read back by Pamela Shrestha at 0735 Performed By: #### 5 [id number], [id number] ####[facility] [facility] [place] [address], [facility] BASIC METABOLIC PANELon 08-09 Calcium [Mass/Vol] 9.4 mg/dL Normal 8.6-10.3 [facility] Comment on above: Order Comment: No: D o not add to previous draw Performed By: #### 0 0071 ####[facility] [place] [address], [facility] Chloride [Moles/Vol] 84 mmol/L Low 98-107 [facility] Comment on above: Order Comment: No: D o not add to previous draw Performed By: #### 0 0071 ####[facility] [place] [address], [place] CO2 [Moles/Vol] 31 mmol/L Normal 21-31 [facility] Comment on above: Order Comment: No: D o not add to previous draw Performed By: #### 0 0071 ####[facility] [place] [address], [place] Creatinine [Mass/Vol] 1.87 mg/dL High 0.70-1.30 [facility] Comment on above: Order Comment: No: D o not add to previous draw Performed By: #### 0 0071 ####[facility] [place] [address], [facility] eGFR- 45 ml/min/1.73sq m Abnormal >60 [facility] Comment on above: Order Comment: No: D o not add to previous draw Performed By: #### 0 0071 ####[facility] [place] [address], [facility] eGFR- non- 37 ml/min/1.73sq m Abnormal >60 [facility] Comment on above: Order Comment: No: D o not add to previous draw Performed By: #### 0 0071 ####[facility] [facility] [place] [address], [facility] Glucose [Mass/Vol] 181 mg/dL High 70-100 [facility] Comment on above: Order Comment: No: D o not add to previous draw Performed By: #### 0 0071 ####[facility] [facility] [place] [address], [facility] Potassium [Moles/Vol] 4.1 mmol/L Normal 3.5-5.1 [facility] Comment on above: Order Comment: No: D o not add to previous draw Performed By: #### 0 0071 ####[facility] [place] [address], [facility] Sodium [Moles/Vol] 131 mmol/L Low 136-145 [facility] Comment on above: Order Comment: No: D o not add to previous draw Performed By: #### 0 0071 ####[facility] [facility] [place] [place] [address], [facility] Urea nitrogen [Mass/Vol] 77 mg/dL High 7-25 [facility] Comment on above: Order Comment: No: D o not add to previous draw Performed By: #### 0 0071 ####[facility] [place] [address], [place] CHEST AND LATERALon 08-25-19 22 CHEST AND LATERAL Normal [facility] Comment on above: Order Comment: evalu ate Atelectasis POC GLUCOSE LABon 08-24-2021 Glucose [Mass/Vol] 170 mg/dL High 70-100 [facility] Comment on above: Performed By: #### 8 5499 ####[facility] [place] [address], [place] Glucose [Mass/Vol] 215 mg/dL High 70-100 [facility] Comment on above: Performed By: #### 8 5499 ####[facility] [place] [address], [place] Glucose [Mass/Vol] 219 mg/dL High 70-100 [facility] Comment on above: Performed By: #### 8 5499 ####[facility] [place] [address], [place] Glucose [Mass/Vol] 194 mg/dL High 70-100 [facility] Comment on above: Performed By: #### 8 5499 ####[facility] [place] [address], [place] UFH HEPARIN ASSAYon 08-25-19 22 UNFRACTIONATED HEPARIN 0.99 IU/mL Critically high 0.30-0.70 [facility] Comment on above: Order Comment: UFH a dded per protocol. Result Comment: Kylie roxaban and Apixaban will interfere with the anti Xa assay used tomonitor UFH and LMWH.Results called. Accurately read back by Jose Doyle,,RN, CVU 3CD pt's nurse, at 2254, . Performed By: #### 3 0477, [id number] ####[facility] [place] [address], [facility] UNFRACTIONATED HEPARIN >1.00 Critically high 0.30-0.70 [facility] Comment on above: Order Comment: ADDED ON PER PROTOCOL Result Comment: [place] roxaban and Apixaban will interfere with the anti Xa assay used tomonitor UFH and LMWH.Rivaroxaban and Apixaban will interfere with the anti Xa assay used tomonitor UFH and LMWH. Performed By: #### 5 7307, [id number] ####[facility] [facility].[address] UNFRACTIONATED HEPARIN 1.00 IU/mL Critically high 0.30-0.70 [facility] Comment on above: Result Comment: Resu lt checked and called. Accurately read back by Pamela Shrestha at 0735Rivaroxaban and Apixaban will interfere with the anti Xa assay used tomonitor UFH and LMWH. Performed By: #### 5 7307, [id number] ####[facility] [facility].[address] APTTon 08-23-2021 aPTT Coag (Bld) [Time] 55.1 s High 25.0-35.0 [facility] Comment on above: Order Comment: No: D o not add to previous draw Result Comment: Clin ical significance of the PTT result is questionable in the presenceof Heparin.ALL RESULTS MUST BE INTERPRETED WITH RESPECT TO BLOOD DRAWING ARTIFACTOR DILUTION ERROR OF ANTICOAGULANT AT THE TIME OF SAMPLING.THE APTT SHOULD NOT BE USED TO MONITOR UNFRACTIONATED HEPARIN THERAPY, THIS LABORATORY NO LONGER HAS AN ESTABLISHED THERAPEUTIC RANGE BASEDON THE APTT. IT IS RECOMMENDED THAT THE UFH - HEPARIN ASSAY (ANTI-XAACTIVITY) BE USED FOR THIS PURPOSE. Performed By: #### 5 [id number], [id number] ####[facility] [facility].[address] aPTT Coag (Bld) [Time] 115.6 s Critically high 25.0-35.0 [facility] Comment on above: Order Comment: No: D o not add to previous draw Result Comment: CLIN ICAL SIGNIFICANCE OF THE PTT RESULT IS QUESTIONABLE IN THE PRESENCEOF HEPARIN.Result checked and called. Accurately read back by Margarita Quintero RN [id number] Performed By: #### 5 7307, 11139 ####[facility] aPTT Coag (Bld) [Time] 54.1 s High 25.0-35.0 [facility] Comment on above: Order Comment: No: D o not add to previous draw Result Comment: ALL RESULTS MUST BE INTERPRETED WITH RESPECT TO BLOOD DRAWING ARTIFACTOR DILUTION ERROR OF ANTICOAGULANT AT THE TIME OF SAMPLING.THE APTT SHOULD NOT BE USED TO MONITOR UNFRACTIONATED HEPARIN THERAPY, THIS LABORATORY NO LONGER HAS AN ESTABLISHED THERAPEUTIC RANGE BASEDON THE APTT. IT IS RECOMMENDED THAT THE UFH - HEPARIN ASSAY (ANTI-XAACTIVITY) BE USED FOR THIS PURPOSE.RESULTS CHECKED AND CALLED. ACCURATELY READ BACK BY JEYSON PEREA [id number] Performed By: #### 5 [id number] ####[facility] [facility] BASIC METABOLIC PANELon 04- Calcium [Mass/Vol] 9.1 mg/dL Normal 8.6-10.3 [facility] Comment on above: Order Comment: No: D o not add to previous draw Performed By: #### 0 0071, 97212 ####[facility] [facility] [place] [address], [facility] Chloride [Moles/Vol] 90 mmol/L Low 98-107 [facility] Comment on above: Order Comment: No: D o not add to previous draw Performed By: #### 0 0071, 67781 ####[facility] [place] [address], [facility] CO2 [Moles/Vol] 31 mmol/L Normal 21-31 [facility] Comment on above: Order Comment: No: D o not add to previous draw Performed By: #### 0 0071, 56675 ####[facility] [place] [address], [facility] Creatinine [Mass/Vol] 1.58 mg/dL High 0.70-1.30 [facility] Comment on above: Order Comment: No: D o not add to previous draw Performed By: #### 0 0071, 69413 ####[facility] [place] [address], [facility] eGFR- 54 ml/min/1.73sq m Abnormal >60 [facility] Comment on above: Order Comment: No: D o not add to previous draw Performed By: #### 0 0071, 38904 ####[facility] [place] [address], [facility] eGFR- non- 45 ml/min/1.73sq m Abnormal >60 [facility] Comment on above: Order Comment: No: D o not add to previous draw Performed By: #### 0 0071, 61987 ####[facility] [place] [address], [facility] Glucose [Mass/Vol] 180 mg/dL High 70-100 [facility] Comment on above: Order Comment: No: D o not add to previous draw Performed By: #### 0 0071, 00343 ####[facility] [place] [address], [facility] Potassium [Moles/Vol] 3.3 mmol/L Low 3.5-5.1 [facility] Comment on above: Order Comment: No: D o not add to previous draw Performed By: #### 0 0071, 82875 ####[facility] [place] [address], [place] Sodium [Moles/Vol] 135 mmol/L Low 136-145 [facility] Comment on above: Order Comment: No: D o not add to previous draw Performed By: #### 0 0071, 14841 ####[facility] [place] [address], [place] Urea nitrogen [Mass/Vol] 55 mg/dL High 7-25 [facility] Comment on above: Order Comment: No: D o not add to previous draw Performed By: #### 0 0071, 11515 ####[facility] [place] [address], [facility] MAGNESIUM BLOODon 08-23-2021 Magnesium [Mass/Vol] 2.2 mg/dL Normal 1.9-2.7 [facility] Comment on above: Order Comment: No: D o not add to previous draw Performed By: #### 0 0071, 92500 ####[facility] [place] [address], [facility] POC GLUCOSE LABon 08-23-2021 Glucose [Mass/Vol] 214 mg/dL High 70-100 [facility] Comment on above: Performed By: #### 8 5499 ####[facility] [facility] [place] [address], [place] Glucose [Mass/Vol] 325 mg/dL High 70-100 [facility] Comment on above: Performed By: #### 8 5499 ####[facility] [facility] [place] [address], [place] Glucose [Mass/Vol] 312 mg/dL High 70-100 [facility] Comment on above: Performed By: #### 8 5499 ####[facility] [facility] [place] [address], [place] Glucose [Mass/Vol] 179 mg/dL High 70-100 [facility] Comment on above: Performed By: #### 8 5499 ####[facility] [place] [address], [facility] POC SARS COV2 ANTIGEN NEGATI VEon 08-23-2021 POC SARS COV2 ANTIGEN NEG Negative Normal NEGATIVE [facility] Comment on above: Result Comment: Nega tive results should be treated as presumptive and confirmation witha molecular assay, if necessary, for patient management, may beperformed. Negative results do not rule out SARS-CoV-2 infection and notshould be used as the sole basis for treatment or patient managementdecisions, including infection control decisions. Negative resultsshould be considered in the context of a patient's recent exposures,history, and the presence of clinical signs and symptoms consistent withCOVID-19.The Clarity COVID-19 Antigen Rapid Test Cassette is a rapidchromatographic immunoassay intended for the qualitative detection ofthe nucleocapsid protein antigen from SARS-CoV-2 in directnasopharyngeal swab (COURTROOM REPORTER) specimens from individuals who are suspected ofCOVID-19 by their healthcare provider within the first six days ofsymptom onset. Testing is limited to laboratories certified under theClinical Laboratory Improvement Amendments of 1988 (CLIA), 42 U.S.C.???263a, that meet the requirements to perform moderate complexity, highcomplexity, or waived tests. This test is authorized for use at thePoint of Care (POC), i.e., in patient care settings operating under aCLIA Certificate of Waiver, Certificate of Compliance, or Certificate ofAccreditation. Performed By: #### 3 2044 ####[facility] [facility].[address] UFH HEPARIN ASSAYon 08-24-19 UNFRACTIONATED HEPARIN 0.37 IU/mL Normal 0.30-0.70 [facility] Comment on above: Order Comment: Added per protocol Result Comment: Kylie roxaban and Apixaban will interfere with the anti Xa assay used tomonitor UFH and LMWH. Performed By: #### 5 7307, 42457 ####[facility] [facility] [address], [facility] UNFRACTIONATED HEPARIN 0.87 IU/mL High 0.30-0.70 [facility] Comment on above: Result Comment: [place] roxaban and Apixaban will interfere with the anti Xa assay used tomonitor UFH and LMWH. Performed By: #### 5 7307, [id number] ####[facility] [facility] [address], [facility] APTTon 04-14-2022 aPTT Coag (Bld) [Time] 31.9 s Normal 25.0-35.0 [facility] Comment on above: Order Comment: No: D o not add to previous draw Result Comment: ALL RESULTS MUST BE INTERPRETED WITH RESPECT TO BLOOD DRAWING ARTIFACTOR DILUTION ERROR OF ANTICOAGULANT AT THE TIME OF SAMPLING.THE APTT SHOULD NOT BE USED TO MONITOR UNFRACTIONATED HEPARIN THERAPY, THIS LABORATORY NO LONGER HAS AN ESTABLISHED THERAPEUTIC RANGE BASEDON THE APTT. IT IS RECOMMENDED THAT THE UFH - HEPARIN ASSAY (ANTI-XAACTIVITY) BE USED FOR THIS PURPOSE. Performed By: #### 5 [id number] ####[facility] [facility].[address] aPTT Coag (Bld) [Time] 30.0 s Normal 25.0-35.0 [facility] Comment on above: Order Comment: No: D o not add to previous draw Result Comment: ALL RESULTS MUST BE INTERPRETED WITH RESPECT TO BLOOD DRAWING ARTIFACTOR DILUTION ERROR OF ANTICOAGULANT AT THE TIME OF SAMPLING.THE APTT SHOULD NOT BE USED TO MONITOR UNFRACTIONATED HEPARIN THERAPY, THIS LABORATORY NO LONGER HAS AN ESTABLISHED THERAPEUTIC RANGE BASEDON THE APTT. IT IS RECOMMENDED THAT THE UFH - HEPARIN ASSAY (ANTI-XAACTIVITY) BE USED FOR THIS PURPOSE. Performed By: #### 5 [id number] ####[facility] [facility] [place] [address], [facility] BASIC METABOLIC PANELon 04- Calcium [Mass/Vol] 8.7 mg/dL Normal 8.6-10.3 [facility] Comment on above: Order Comment: No: D o not add to previous draw Performed By: #### 0 0071, 04091 ####[facility] [facility] [place] [address], [facility] Chloride [Moles/Vol] 94 mmol/L Low 98-107 [facility] Comment on above: Order Comment: No: D o not add to previous draw Performed By: #### 0 0071, 69660 ####[facility] [facility] [place] [place] [address], [facility] CO2 [Moles/Vol] 28 mmol/L Normal 21-31 [facility] Comment on above: Order Comment: No: D o not add to previous draw Performed By: #### 0 0071, 13872 ####[facility] [place] [address], [facility] Creatinine [Mass/Vol] 1.28 mg/dL Normal 0.70-1.30 [facility] Comment on above: Order Comment: No: D o not add to previous draw Performed By: #### 0 0071, 10126 ####[facility] eGFR- non- 57 ml/min/1.73sq m Abnormal >60 [facility] Comment on above: Order Comment: No: D o not add to previous draw Performed By: #### 0 0071, 99754 ####[facility] [facility] [place] [place] [address], [facility] GFR/1.73 sq M.predicted among blacks MDRD (S/P/Bld) [Vol rate/Area] mL/min/{1.73_m2} Normal >60 [facility] Comment on above: Order Comment: No: D o not add to previous draw Performed By: #### 0 0071, 68150 ####[facility] [facility] [place] [place] [address], [facility] Glucose [Mass/Vol] 146 mg/dL High 70-100 [facility] Comment on above: Order Comment: No: D o not add to previous draw Performed By: #### 0 0071, 40038 ####[facility] [place] [address], [facility] Potassium [Moles/Vol] 3.6 mmol/L Normal 3.5-5.1 [facility] Comment on above: Order Comment: No: D o not add to previous draw Performed By: #### 0 0071, 31873 ####[facility] [place] [address], [place] Sodium [Moles/Vol] 134 mmol/L Low 136-145 [facility] Comment on above: Order Comment: No: D o not add to previous draw Performed By: #### 0 0071, 67586 ####[facility] [place] [address], [place] Urea nitrogen [Mass/Vol] 36 mg/dL High 7-25 [facility] Comment on above: Order Comment: No: D o not add to previous draw Performed By: #### 0 0071, 37144 ####[facility] [place] [address], [place] MAGNESIUM BLOODon 08-22-2021 Magnesium [Mass/Vol] 1.6 mg/dL Low 1.9-2.7 [facility] Comment on above: Order Comment: No: D o not add to previous draw Performed By: #### 0 0071, 98894 ####[facility] [place] [address], [place] POC GLUCOSE LABon 08-22-2021 Glucose [Mass/Vol] 165 mg/dL High 70-100 [facility] Comment on above: Performed By: #### 8 5499 ####[facility] [place] [address], [place] Glucose [Mass/Vol] 154 mg/dL High 70-100 [facility] Comment on above: Performed By: #### 8 5499 ####[facility] [place] [address], [place] Glucose [Mass/Vol] 254 mg/dL High 70-100 [facility] Comment on above: Performed By: #### 8 5499 ####[facility] [place] [address], [place] Glucose [Mass/Vol] 208 mg/dL High 70-100 [facility] Comment on above: Performed By: #### 8 5499 ####[facility] APTTon 08-21-2021 aPTT Coag (Bld) [Time] 27.2 s Normal 25.0-35.0 [facility] Comment on above: Order Comment: No: D o not add to previous draw Result Comment: ALL RESULTS MUST BE INTERPRETED WITH RESPECT TO BLOOD DRAWING ARTIFACTOR DILUTION ERROR OF ANTICOAGULANT AT THE TIME OF SAMPLING.THE APTT SHOULD NOT BE USED TO MONITOR UNFRACTIONATED HEPARIN THERAPY, THIS LABORATORY NO LONGER HAS AN ESTABLISHED THERAPEUTIC RANGE BASEDON THE APTT. IT IS RECOMMENDED THAT THE UFH - HEPARIN ASSAY (ANTI-XAACTIVITY) BE USED FOR THIS PURPOSE. Performed By: #### 5 [id number] ####[facility] aPTT Coag (Bld) [Time] 29.4 s Normal 25.0-35.0 [facility] Comment on above: Order Comment: No: D o not add to previous draw Result Comment: ALL RESULTS MUST BE INTERPRETED WITH RESPECT TO BLOOD DRAWING ARTIFACTOR DILUTION ERROR OF ANTICOAGULANT AT THE TIME OF SAMPLING.THE APTT SHOULD NOT BE USED TO MONITOR UNFRACTIONATED HEPARIN THERAPY, THIS LABORATORY NO LONGER HAS AN ESTABLISHED THERAPEUTIC RANGE BASEDON THE APTT. IT IS RECOMMENDED THAT THE UFH - HEPARIN ASSAY (ANTI-XAACTIVITY) BE USED FOR THIS PURPOSE. Performed By: #### 5 [id number] ####[facility] aPTT Coag (Bld) [Time] 41.4 s High 25.0-35.0 [facility] Comment on above: Order Comment: No: D o not add to previous draw Result Comment: ALL RESULTS MUST BE INTERPRETED WITH RESPECT TO BLOOD DRAWING ARTIFACTOR DILUTION ERROR OF ANTICOAGULANT AT THE TIME OF SAMPLING.THE APTT SHOULD NOT BE USED TO MONITOR UNFRACTIONATED HEPARIN THERAPY, THIS LABORATORY NO LONGER HAS AN ESTABLISHED THERAPEUTIC RANGE BASEDON THE APTT. IT IS RECOMMENDED THAT THE UFH - HEPARIN ASSAY (ANTI-XAACTIVITY) BE USED FOR THIS PURPOSE. Performed By: #### 5 [id number] ####[facility] aPTT Coag (Bld) [Time] 33.7 s Normal 25.0-35.0 [facility] Comment on above: Order Comment: No: D o not add to previous draw Result Comment: ALL RESULTS MUST BE INTERPRETED WITH RESPECT TO BLOOD DRAWING ARTIFACTOR DILUTION ERROR OF ANTICOAGULANT AT THE TIME OF SAMPLING.THE APTT SHOULD NOT BE USED TO MONITOR UNFRACTIONATED HEPARIN THERAPY, THIS LABORATORY NO LONGER HAS AN ESTABLISHED THERAPEUTIC RANGE BASEDON THE APTT. IT IS RECOMMENDED THAT THE UFH - HEPARIN ASSAY (ANTI-XAACTIVITY) BE USED FOR THIS PURPOSE. Performed By: #### 5 [id number] ####[facility] [facility].[address] BASIC METABOLIC PANELon 04- Calcium [Mass/Vol] 8.7 mg/dL Normal 8.6-10.3 [facility] Comment on above: Order Comment: No: D o not add to previous draw Performed By: #### 0 0071, 90126 ####[facility] [facility] [address], [facility] Chloride [Moles/Vol] 101 mmol/L Normal 98-107 [facility] Comment on above: Order Comment: No: D o not add to previous draw Performed By: #### 0 0071, 03622 ####[facility] [facility] [place] [place] [address], [facility] CO2 [Moles/Vol] 27 mmol/L Normal 21-31 [facility] Comment on above: Order Comment: No: D o not add to previous draw Performed By: #### 0 0071, 83720 ####[place] [address] [facility] [address], [facility] Creatinine [Mass/Vol] 0.86 mg/dL Normal 0.70-1.30 [facility] Comment on above: Order Comment: No: D o not add to previous draw Performed By: #### 0 0071, 72150 ####[facility] [place] [address], [place] GFR/1.73 sq M.predicted among blacks MDRD (S/P/Bld) [Vol rate/Area] mL/min/{1.73_m2} Normal >60 [facility] Comment on above: Order Comment: No: D o not add to previous draw Performed By: #### 0 0071, 05450 ####[facility] [place] [address], [place] GFR/1.73 sq M.predicted among non-blacks MDRD (S/P/Bld) [Vol rate/Area] mL/min/{1.73_m2} Normal >60 [facility] Comment on above: Order Comment: No: D o not add to previous draw Performed By: #### 0 0071, 01979 ####[facility] [address], [place] Glucose [Mass/Vol] 155 mg/dL High 70-100 [facility] Comment on above: Order Comment: No: D o not add to previous draw Performed By: #### 0 0071, 87497 ####[facility] [place] [address], [place] Potassium [Moles/Vol] 3.7 mmol/L Normal 3.5-5.1 [facility] Comment on above: Order Comment: No: D o not add to previous draw Performed By: #### 0 0071, 85002 ####[facility] [place] [address], [place] Sodium [Moles/Vol] 137 mmol/L Normal 136-145 [facility] Comment on above: Order Comment: No: D o not add to previous draw Performed By: #### 0 0071, 10996 ####[facility] [place] [address], [place] Urea nitrogen [Mass/Vol] 18 mg/dL Normal 7-25 [facility] Comment on above: Order Comment: No: D o not add to previous draw Performed By: #### 0 0071, 57393 ####[facility] [facility] CBC COMPLETE BLOOD COUNTon 0 - Erythrocyte distribution width (RBC) [Ratio] 14.6 % Normal 11.5-15.0 [facility] Comment on above: Order Comment: No: D o not add to previous draw Performed By: #### 5 0608 ####[facility] [facility].[address] Hematocrit (Bld) [Volume fraction] 30.4 % Low 39.0-50.0 [facility] Comment on above: Order Comment: No: D o not add to previous draw Performed By: #### 5 0608 ####[facility] [facility].[address] Hemoglobin (Bld) [Mass/Vol] 9.7 g/dL Low 13.0-17.0 [facility] Comment on above: Order Comment: No: D o not add to previous draw Performed By: #### 5 0608 ####[facility] MCH (RBC) [Entitic mass] 27.9 pg Normal 27.0-33.0 [facility] Comment on above: Order Comment: No: D o not add to previous draw Performed By: #### 5 0608 ####[facility] [facility] [place] [address], [facility] MCHC (RBC) [Mass/Vol] 31.9 g/dL Low 32.0-35.0 [facility] Comment on above: Order Comment: No: D o not add to previous draw Performed By: #### 5 0608 ####[facility] MCV (RBC) [Entitic vol] 87.4 fL Normal 82.0-98.0 [facility] Comment on above: Order Comment: No: D o not add to previous draw Performed By: #### 5 0608 ####[facility] Nucleated RBC/100 WBC (Bld) [Ratio] 0 % Normal 0-0 [facility] Comment on above: Order Comment: No: D o not add to previous draw Performed By: #### 5 0608 ####[place] [address], [facility] PLAT CNT 174 10*3/uL Normal 150-400 [facility] Comment on above: Order Comment: No: D o not add to previous draw Performed By: #### 5 0608 ####[address] RBC (Bld) [#/Vol] 3.48 10*6/uL Low 4.20-5.70 [facility] Comment on above: Order Comment: No: D o not add to previous draw Performed By: #### 5 0608 ####[facility] [place] [address], [facility] WBC (Bld) [#/Vol] 4.81 10*3/uL Normal 4.00-10.60 [facility] Comment on above: Order Comment: No: D o not add to previous draw Performed By: #### 5 0608 ####[facility] [place] [address], [facility] MAGNESIUM BLOODon 08-21-2021 Magnesium [Mass/Vol] 1.7 mg/dL Low 1.9-2.7 [facility] Comment on above: Order Comment: No: D o not add to previous draw Performed By: #### 0 0071, 77426 ####[facility] [place] [address], [facility] POC GLUCOSE LABon 08-21-2021 Glucose [Mass/Vol] 178 mg/dL High 70-100 [facility] Comment on above: Performed By: #### 8 5499 ####[facility] [facility] [place] [address], [place] Glucose [Mass/Vol] 205 mg/dL High 70-100 [facility] Comment on above: Performed By: #### 8 5499 ####[facility] [place] [address], [place] Glucose [Mass/Vol] 233 mg/dL High 70-100 [facility] Comment on above: Performed By: #### 8 5499 ####[facility] [place] [address], [facility] Glucose [Mass/Vol] 174 mg/dL High 70-100 [facility] Comment on above: Performed By: #### 8 5499 ####[facility] [place] [address], [facility] APTTon 08-20-2021 aPTT Coag (Bld) [Time] 36.0 s High 25.0-35.0 [facility] Comment on above: Order Comment: No: D o not add to previous draw Result Comment: ALL RESULTS MUST BE INTERPRETED WITH RESPECT TO BLOOD DRAWING ARTIFACTOR DILUTION ERROR OF ANTICOAGULANT AT THE TIME OF SAMPLING.THE APTT SHOULD NOT BE USED TO MONITOR UNFRACTIONATED HEPARIN THERAPY, THIS LABORATORY NO LONGER HAS AN ESTABLISHED THERAPEUTIC RANGE BASEDON THE APTT. IT IS RECOMMENDED THAT THE UFH - HEPARIN ASSAY (ANTI-XAACTIVITY) BE USED FOR THIS PURPOSE. Performed By: #### 5 7307 ####[facility] [place] [address].[place] [address], [facility] aPTT Coag (Bld) [Time] 27.0 s Normal 25.0-35.0 [facility] Comment on above: Order Comment: No: D o not add to previous draw Result Comment: ALL RESULTS MUST BE INTERPRETED WITH RESPECT TO BLOOD DRAWING ARTIFACTOR DILUTION ERROR OF ANTICOAGULANT AT THE TIME OF SAMPLING.THE APTT SHOULD NOT BE USED TO MONITOR UNFRACTIONATED HEPARIN THERAPY, THIS LABORATORY NO LONGER HAS AN ESTABLISHED THERAPEUTIC RANGE BASEDON THE APTT. IT IS RECOMMENDED THAT THE UFH - HEPARIN ASSAY (ANTI-XAACTIVITY) BE USED FOR THIS PURPOSE. Performed By: #### 3 0477, 77260 ####[facility] [facility].[address] BASIC METABOLIC PANELon 08-09 Calcium [Mass/Vol] 8.6 mg/dL Normal 8.6-10.3 [facility] Comment on above: Order Comment: No: D o not add to previous draw Performed By: #### 3 5200, 66900, 91213 ####[place] [address] [facility] [address], [facility] Chloride [Moles/Vol] 107 mmol/L Normal 98-107 [facility] Comment on above: Order Comment: No: D o not add to previous draw Performed By: #### 3 5200, 29640, 34350 ####[facility] [facility] [address], [facility] CO2 [Moles/Vol] 28 mmol/L Normal 21-31 [facility] Comment on above: Order Comment: No: D o not add to previous draw Performed By: #### 3 5200, 56051, 54716 ####[facility] [facility] [address], [facility] Creatinine [Mass/Vol] 0.83 mg/dL Normal 0.70-1.30 [facility] Comment on above: Order Comment: No: D o not add to previous draw Performed By: #### 3 5200, 55978, 38677 ####[facility] [facility] [address], [facility] GFR/1.73 sq M.predicted among blacks MDRD (S/P/Bld) [Vol rate/Area] mL/min/{1.73_m2} Normal >60 [facility] Comment on above: Order Comment: No: D o not add to previous draw Performed By: #### 3 5200, 98859, 64932 ####[facility] [place] [address], [facility] GFR/1.73 sq M.predicted among non-blacks MDRD (S/P/Bld) [Vol rate/Area] mL/min/{1.73_m2} Normal >60 [facility] Comment on above: Order Comment: No: D o not add to previous draw Performed By: #### 3 0, 82532, 58648 ####[facility] [place] [address], [place] Glucose [Mass/Vol] 125 mg/dL High 70-100 [facility] Comment on above: Order Comment: No: D o not add to previous draw Performed By: #### 3 0, 48526, 98971 ####[facility] [place] [address], [place] Potassium [Moles/Vol] 4.0 mmol/L Normal 3.5-5.1 [facility] Comment on above: Order Comment: No: D o not add to previous draw Performed By: #### 3 0, 87694, 30097 ####[facility] [place] [address], [place] Sodium [Moles/Vol] 138 mmol/L Normal 136-145 [facility] Comment on above: Order Comment: No: D o not add to previous draw Performed By: #### 3 0, 17199, 51648 ####[facility] [place] [address], [place] Urea nitrogen [Mass/Vol] 15 mg/dL Normal 7-25 [facility] Comment on above: Order Comment: No: D o not add to previous draw Performed By: #### 3 0, 73794, 32409 ####[facility] [place] [address], [facility] CBC W/DIFFon 08-20-2021 ABS IMM GRANS 0.0 10*3/uL Normal 0.0-0.2 [facility] Comment on above: Performed By: #### 5 0103 ####[facility] [place] [address], [facility] ABS NEUTROPHILS 3.2 10*3/uL Normal 1.6-7.6 [facility] Comment on above: Performed By: #### 5 0103 ####[facility] [place] [address], [facility] Basophils (Bld) [#/Vol] 0.0 10*3/uL Normal 0.0-0.2 [facility] Comment on above: Performed By: #### 5 0103 ####[facility] Basophils/100 WBC (Bld) 0.8 % Normal 0.0-1.0 [facility] Comment on above: Performed By: #### 5 0103 ####[facility] [place] [address], [facility] Eosinophils (Bld) [#/Vol] 0.1 10*3/uL Normal 0.0-0.5 [facility] Comment on above: Performed By: #### 5 0103 ####[facility] [place] [address], [facility] Eosinophils/100 WBC (Bld) 1.4 % Normal 0.0-6.0 [facility] Comment on above: Performed By: #### 5 0103 ####[facility] Erythrocyte distribution width (RBC) [Ratio] 14.6 % Normal 11.5-15.0 [facility] Comment on above: Performed By: #### 5 0103 ####[facility] Hematocrit (Bld) [Volume fraction] 28.6 % Low 39.0-50.0 [facility] Comment on above: Performed By: #### 5 0103 ####[facility] Hemoglobin (Bld) [Mass/Vol] 9.0 g/dL Low 13.0-17.0 [facility] Comment on above: Performed By: #### 3 ####[facility] IMMATURE GRANS 0.2 % Normal 0.0-1.0 [facility] Comment on above: Performed By: #### 5 3 ####[facility] Lymphocytes (Bld) [#/Vol] 1.2 10*3/uL Normal 1.2-4.0 [facility] Comment on above: Performed By: #### 5 3 ####[facility] Lymphocytes/100 WBC (Bld) 24.0 % Normal 20.0-45.0 [facility] Comment on above: Performed By: #### 5 3 ####[facility] MCH (RBC) [Entitic mass] 28.0 pg Normal 27.0-33.0 [facility] Comment on above: Performed By: #### 5 3 ####[facility] MCHC (RBC) [Mass/Vol] 31.5 g/dL Low 32.0-35.0 [facility] Comment on above: Performed By: #### 5 102 ####[facility] [facility].[address] MCV (RBC) [Entitic vol] 89.1 fL Normal 82.0-98.0 [facility] Comment on above: Performed By: #### 102 ####[facility] [facility].[address] Monocytes (Bld) [#/Vol] 0.6 10*3/uL Normal 0.1-1.0 [facility] Comment on above: Performed By: #### 5 102 ####[facility] MONOS 11.1 % Normal 5.0-12.0 [facility] Comment on above: Performed By: #### 5 102 ####[facility] Neutrophils/100 WBC (Bld) 62.5 % Normal 40.0-72.0 [facility] Comment on above: Performed By: #### 102 ####[facility] Nucleated RBC/100 WBC (Bld) [Ratio] 0 % Normal 0-0 [facility] Comment on above: Performed By: #### 5 102 ####[facility] [facility].[address] PLAT CNT 176 10*3/uL Normal 150-400 [facility] Comment on above: Performed By: #### 102 ####[facility] RBC (Bld) [#/Vol] 3.21 10*6/uL Low 4.20-5.70 [facility] Comment on above: Performed By: #### 102 ####[facility] [place] [address], [facility] WBC (Bld) [#/Vol] 5.04 10*3/uL Normal 4.00-10.60 [facility] Comment on above: Performed By: #### 5 0103 ####[facility] [facility] [place] [place] [address], [facility] MAGNESIUM BLOODon 08-20-2021 Magnesium [Mass/Vol] 1.8 mg/dL Low 1.9-2.7 [facility] Comment on above: Order Comment: No: D o not add to previous draw Performed By: #### 3 5200, 37183, 08529 ####[facility] [facility] [place] [place] [address], [facility] POC GLUCOSE LABon 08-20-2021 Glucose [Mass/Vol] 134 mg/dL High 70-100 [facility] Comment on above: Performed By: #### 8 5499 ####[facility] [facility] [address], [facility] PORTABLE CHEST 1 VIEWon 08-09 PORTABLE CHEST 1 VIEW Normal [facility] Comment on above: Order Comment: Infil trates TROPONIN-Ion 08-20-2021 Troponin I.cardiac [Mass/Vol] 0.01 ng/mL Normal 0.00-0.04 [facility] Comment on above: Order Comment: No: D o not add to previous draw Result Comment: REFE RENCE RANGES: 0.00 - 0.04 ng/ml NORMAL 0.05 - 0.50 ng/ml INDETERMINATE > 0.50 ng/ml CONSISTENT WITH AN M.I. Performed By: #### 3 5200, 30502, 24500 ####[facility] [place] [address], [facility] UFH HEPARIN ASSAYon 08-21-19 22 UNFRACTIONATED HEPARIN 0.36 IU/mL Normal 0.30-0.70 [facility] Comment on above: Result Comment: Kylie roxaban and Apixaban will interfere with the anti Xa assay used tomonitor UFH and LMWH. Performed By: #### 3 0477, 32393 ####[facility] [facility] [place] [address], [facility] ANTI-BETA 2 GLYCOPROTEIN 1on 08-14-2021 ANTI B2GP1 IGG 0.3 g units Normal 0.0-19.9 [facility] Comment on above: Performed By: #### 9 0118, 33990 ####[facility] [place] [address], [facility] ANTI B2GP1 IGM 2.4 m units Normal 0.0-19.9 [facility] Comment on above: Performed By: #### 9 0118, 92571 ####[facility] [facility] ANTICARDIOLIPIN ANTIBODYon 0 08-14-2021 CARDIOLIPIN IGG 12.1 GPL Normal 0.0-22.9 [facility] Comment on above: Performed By: #### 9 0118, 18215 ####[facility] [facility].[address] CARDIOLIPIN IGM 1.1 MPL Normal 0.0-10.9 [facility] Comment on above: Performed By: #### 9 0118, 31596 ####[facility] [facility].[address] COMP METABOLIC PANELon 08-14 Albumin [Mass/Vol] 3.7 g/dL Normal 3.5-5.7 [facility] Comment on above: Performed By: #### 4 4396, 16062, 68091, 36478, 41407 ####[facility] [facility] ALKALINE PHOSPH 54 IU/L Normal 34-104 [facility] Comment on above: Performed By: #### 4 4396, 03833, 33286, 75496, 63448 ####[facility] [place] [address], [place] ALT [Catalytic activity/Vol] 15 U/L Normal 7-52 [facility] Comment on above: Performed By: #### 4 4396, 63019, 53920, 76424, 31958 ####[facility] [place] [address], [place] AST [Catalytic activity/Vol] 16 U/L Normal 13-39 [facility] Comment on above: Performed By: #### 4 4396, 68074, 57434, 71143, 26098 ####[facility] [place] [address], [place] Bilirubin [Mass/Vol] 0.6 mg/dL Normal 0.3-1.0 [facility] Comment on above: Performed By: #### 4 4396, 57067, 83453, 05345, 20864 ####[facility] [place] [address], [place] Calcium [Mass/Vol] 8.7 mg/dL Normal 8.6-10.3 [facility] Comment on above: Performed By: #### 4 4396, 89832, 10880, 16285, 69812 ####[facility] [place] [address], [place] Chloride [Moles/Vol] 108 mmol/L High 98-107 [facility] Comment on above: Performed By: #### 4 4396, 93637, 36849, 68753, 10067 ####[facility] [place] [address], [place] CO2 [Moles/Vol] 25 mmol/L Normal 21-31 [facility] Comment on above: Performed By: #### 4 4396, 91873, 75297, 69836, 20928 ####[facility] [place] [address], [facility] Creatinine [Mass/Vol] 0.77 mg/dL Normal 0.70-1.30 [facility] Comment on above: Performed By: #### 4 4396, 90485, 79235, 03872, 63517 ####[facility] [place] [address], [facility] GFR/1.73 sq M.predicted among blacks MDRD (S/P/Bld) [Vol rate/Area] mL/min/{1.73_m2} Normal >60 [facility] Comment on above: Performed By: #### 4 4396, 12130, 95771, 03228, 64427 ####[facility] [place] [address], [facility] GFR/1.73 sq M.predicted among non-blacks MDRD (S/P/Bld) [Vol rate/Area] mL/min/{1.73_m2} Normal >60 [facility] Comment on above: Performed By: #### 4 4396, 42623, 97206, 22383, 38684 ####[facility] [place] [address], [facility] Glucose [Mass/Vol] 120 mg/dL High 70-100 [facility] Comment on above: Performed By: #### 4 4396, 58290, 37974, 66844, 81101 ####[facility] [place] [address], [place] Potassium [Moles/Vol] 4.3 mmol/L Normal 3.5-5.1 [facility] Comment on above: Performed By: #### 4 4396, 38309, 58457, 57848, 11231 ####[facility] [place] [address], [place] Protein [Mass/Vol] 6.5 g/dL Normal 6.0-8.3 [facility] Comment on above: Performed By: #### 4 4396, 87840, 43439, 79238, 35806 ####[facility] Sodium [Moles/Vol] 140 mmol/L Normal 136-145 [facility] Comment on above: Performed By: #### 4 4396, 60551, 86880, 98046, 12815 ####[facility] Urea nitrogen [Mass/Vol] 21 mg/dL Normal 7-25 [facility] Comment on above: Performed By: #### 4 4396, 71082, 85092, 90589, 25352 ####[facility] CYCLIC CITRULLINATED PEPTIDE [place] [id number] 08-14-2021 CYCLIC CIT PEP 5 Units Normal 0-19 [facility] Comment on above: Result Comment: INTE RPRETIVE INFORMATION: Cyclic Citrullinated PeptideAntibody, IgG 19 Units or less ................... Negative 20-39 Units ........................ Weak Positive 40-59 Units ........................ Moderate Positive 60 Units or greater ................ Strong PositiveAnti-cyclic citrullinated peptide (anti-CCP), IgGantibodies are present in about 69-83 percent of patientswith rheumatoid arthritis (RA) and have specificities of93-95 percent. These autoantibodies may be present in thepreclinical phase of disease, are associated with future RAdevelopment, and may predict radiographic jointdestruction. Patients with weak positive results should bemonitored and testing repeated.Performed By: [facility] [place] [id number] Director: Liz Gamble MD FREE T4on 08-14-2021 Free T4 [Mass/Vol] 0.97 ng/dL Normal 0.71-1.85 [facility] Comment on above: Performed By: #### 4 4396, 25221, 19517, 99217, 69466 ####[facility] [place] [address], [facility] MAGNESIUM BLOODon 08-14-2021 Magnesium [Mass/Vol] 1.6 mg/dL Low 1.9-2.7 [facility] Comment on above: Performed By: #### 4 4396, 76918, 43824, 47027, 11405 ####[facility] [place] [address], [facility] PHOSPHATIDYLSERINE ANTIBODIE S, IGG AND IGM [id number] 08-14-2021 PHOSPHATIDYLSERINE ANTIBODY IGG 0 GPS Normal 0-15 [facility] Comment on above: Result Comment: INTE RPRETIVE INFORMATION: Phosphatidylserine Ab, IgGIgG and/or IgM antibodies to phosphatidylserine (aPS) maybe associated with a positive test for anti-cardiolipinautoantibodies (aCL) and risk for obstetricantiphospholipid syndrome (APS). Strong clinicalcorrelation is recommended in the absence of lupusanticoagulant, IgG and/or IgM cardiolipin and/or [id number] antibodies.Isolated presence of IgM or IgG antibodies to aPS may havequestionable clinical significance for APS and/or SLE.If results are positive, repeat testing with two or morespecimens drawn at least 12 weeks apart to demonstratepersistence of antibodies.Results should not be used alone for diagnosis and must beinterpreted in light of APS-specific clinicalmanifestations and/or other criteria phospholipid antibodytests. PHOSPHATIDYLSERINE ANTIBODY IGM 0 MPS Normal 0-21 [facility] Comment on above: Result Comment: INTE RPRETIVE INFORMATION: Phosphatidylserine Ab, IgMThe presence of IgG and/or IgM antibodies tophosphatidylserine (aPS) may be associated with a positivetest for anti-cardiolipin autoantibodies (aCL) and risk forobstetric antiphospholipid syndrome (APS). Strong clinicalcorrelation is recommended in the absence of lupusanticoagulant, IgG and/or IgM cardiolipin and/or [id number] antibodies.Isolated presence of IgM or IgG antibodies to aPS may havequestionable clinical significance for APS and/or SLE.If results are positive, repeat testing with two or morespecimens drawn at least 12 weeks apart to demonstratepersistence of antibodies.Results should not be used alone for diagnosis and must beinterpreted in light of APS-specific clinicalmanifestations and/or other criteria phospholipid antibodytests.Performed By: [facility] [place] [id number] Director: Liz Gamble MD PHOSPHORUS BLOODon 2 Phosphate [Mass/Vol] 3.9 mg/dL Normal 2.5-5.0 [facility] Comment on above: Performed By: #### 4 4396, 51145, 64385, 77128, 46503 ####[facility] RHEUMATOID FACTOR SERUMon RA <20 Normal 0-20 [facility] Comment on above: Performed By: #### 1 0204 ####[facility] [place] [address], [facility] TSH3on 08-14-2021 TSH 3RD GENERATION 1.76 uIU/mL Normal 0.34-5.60 [facility] Comment on above: Performed By: #### 4 4396, 61289, 70153, 01874, 59961 ####[facility] [place] [address], [facility] UA,MICROSCOPIC REQUIREDon Appearance (U) CLEAR Normal CLEAR [facility] Comment on above: Performed By: #### 9 0150 ####[facility] [place] [address], [facility] Bilirubin Ql (U) Negative Normal NEGATIVE [facility] Comment on above: Performed By: #### 9 0150 ####[facility] [place] [address], [facility] Color (U) STRAW Abnormal YELLOW [facility] Comment on above: Performed By: #### 9 0150 ####[facility] [place] [address], [facility] EPIS NONE SEEN Normal FEW,OCC,NONE SEEN [facility] Comment on above: Performed By: #### 9 0150 ####[facility] [place] [address], [place] Glucose Ql (U) Negative Normal NEGATIVE [facility] Comment on above: Performed By: #### 9 0150 ####[facility] [place] [address], [facility] Hemoglobin Ql (U) SMALL Abnormal NEGATIVE [facility] Comment on above: Performed By: #### 9 0150 ####[facility] [facility] [facility] [address], [place] KETONE Negative Normal NEGATIVE [facility] Comment on above: Performed By: #### 9 0150 ####[facility] [place] [address], [place] LEUK ROMEO Negative Normal NEGATIVE [facility] Comment on above: Performed By: #### 9 0150 ####[facility] [place] [address], [place] Nitrite Ql (U) Negative Normal NEGATIVE [facility] Comment on above: Performed By: #### 9 0150 ####[facility] [facility] [place] [address], [facility] pH (U) 5.0 [pH] Normal 5.0-8.0 [facility] Comment on above: Performed By: #### 9 0150 ####[facility] [place] [address], [place] Protein Ql (U) Negative Normal NEGATIVE [facility] Comment on above: Performed By: #### 9 0150 ####[facility] RBC 0-2 Abnormal NONE SEEN [facility] Comment on above: Performed By: #### 9 0150 ####[facility] SPEC GRAV 1.010 Low 1.015-1.020 [facility] Comment on above: Performed By: #### 9 0150 ####[facility] WBC UA 0-2 Abnormal NONE SEEN [facility] Comment on above: Performed By: #### 9 0150 ####[facility] PROF CHEM 8 (BAS METB)on Anion gap [Moles/Vol] 9.2 mmol/L Normal [facility] Comment on above: Performed By: #### C BC #### [facility] Laboratory [address] [place] [address] Dr. Terrence Gunderson Calcium [Mass/Vol] 8.5 mg/dL Normal 8.5-10.1 [facility] Comment on above: Performed By: #### C BC #### [facility] [address] [address] [address] Terrence Gunderson Chloride [Moles/Vol] 105 mmol/L Normal 98-107 [facility] Comment on above: Performed By: #### C BC #### [facility] [address] [address] [address] Terrence Gunderson CO2 [Moles/Vol] 29.7 mmol/L Normal 22.0-30.0 [facility] Comment on above: Performed By: #### C BC #### [facility] [address] [address] [address] Terrence Gunderson Creatinine [Mass/Vol] 0.92 mg/dL Normal 0.66-1.25 [facility] Comment on above: Performed By: #### C BC #### [facility] [address] [address] [address] Terrence Gunderson EGFR-AF BRUNEIAN >60 Normal >=60 [facility] Comment on above: Performed By: #### C BC #### [facility] [address] [place] [address] Dr. Terrence Gunderson EGFR-NON AF BRUNEIAN >60 Normal >=60 [facility] Comment on above: Performed By: #### C BC #### [facility] [address] [address] [address] Terrence Gunderson Glucose [Mass/Vol] 192 mg/dL Critically high 74-106 [facility] Comment on above: Performed By: #### C BC #### [facility] [address] [place] [address] Dr. Terrence Gunderson Potassium [Moles/Vol] 4.9 mmol/L Normal 3.4-5.0 [facility] Comment on above: Performed By: #### C BC #### [facility] [address] [place] [address] Dr. Terrence Gunderson Sodium [Moles/Vol] 139 mmol/L Normal 137-145 [facility] Comment on above: Performed By: #### C BC #### [facility] [address] [place] [address] Dr. Terrence Gunderson Urea nitrogen [Mass/Vol] 22.0 mg/dL Critically high 7.0-18.0 [facility] Comment on above: Performed By: #### C BC #### [facility] [address] [place] [address] Dr. Terrence Gunderson Urea nitrogen/Creatinine [Mass ratio] 23.9 mg/mg Normal [facility] Comment on above: Performed By: #### C BC #### [facility] [address] [place] [address] Dr. Terrence Gunderson BASIC METABOLIC PANELon 07-09 Calcium [Mass/Vol] 9.3 mg/dL Normal 8.6-10.3 [facility] Comment on above: Order Comment: No: D o not add to previous draw Performed By: #### 1 0070, 36538 ####[facility] [place] [address], [facility] Chloride [Moles/Vol] 94 mmol/L Low 98-107 [facility] Comment on above: Order Comment: No: D o not add to previous draw Performed By: #### 1 69, 26199 ####[facility] [facility] [place] [address], [facility] CO2 [Moles/Vol] 29 mmol/L Normal 21-31 [facility] Comment on above: Order Comment: No: D o not add to previous draw Performed By: #### 1 69, [address]172 ####[address] [place] [address] [facility] [id number], [facility] Creatinine [Mass/Vol] 1.01 mg/dL Normal 0.70-1.30 [facility] Comment on above: Order Comment: No: D o not add to previous draw Performed By: #### 1 69, 90852 ####[address] [facility].[place] [id number], [facility] GFR/1.73 sq M.predicted among blacks MDRD (S/P/Bld) [Vol rate/Area] mL/min/{1.73_m2} Normal >60 [facility] Comment on above: Order Comment: No: D o not add to previous draw Performed By: #### 1 69, 38350 ####[address] [facility] [address], [facility] GFR/1.73 sq M.predicted among non-blacks MDRD (S/P/Bld) [Vol rate/Area] mL/min/{1.73_m2} Normal >60 [facility] Comment on above: Order Comment: No: D o not add to previous draw Performed By: #### 1 69, 08416 ####[facility] [facility] [place] [address], [place] Glucose [Mass/Vol] 176 mg/dL High 70-100 [facility] Comment on above: Order Comment: No: D o not add to previous draw Performed By: #### 1 69, 83300 ####[facility] [facility] [place] [address], [facility] Potassium [Moles/Vol] 3.8 mmol/L Normal 3.5-5.1 [facility] Comment on above: Order Comment: No: D o not add to previous draw Performed By: #### 1 69, 51590 ####[facility] [place] [address], [facility] Sodium [Moles/Vol] 133 mmol/L Low 136-145 [facility] Comment on above: Order Comment: No: D o not add to previous draw Performed By: #### 1 69, 78777 ####[facility] [facility] [place] [place] [address], [facility] Urea nitrogen [Mass/Vol] 55 mg/dL High 7-25 [facility] Comment on above: Order Comment: No: D o not add to previous draw Performed By: #### 1 69, 17148 ####[facility] [facility].[address] CBC COMPLETE BLOOD COUNTon 0 - Erythrocyte distribution width (RBC) [Ratio] 14.4 % Normal 11.5-15.0 [facility] Comment on above: Order Comment: No: D o not add to previous draw Performed By: #### 5 0608 ####[facility] [facility] [place] [place] [address], [facility] Hematocrit (Bld) [Volume fraction] 32.0 % Low 39.0-50.0 [facility] Comment on above: Order Comment: No: D o not add to previous draw Performed By: #### 5 0608 ####[facility] [facility] [place] [place] [address], [facility] Hemoglobin (Bld) [Mass/Vol] 10.5 g/dL Low 13.0-17.0 [facility] Comment on above: Order Comment: No: D o not add to previous draw Performed By: #### 5 0608 ####[facility] MCH (RBC) [Entitic mass] 27.5 pg Normal 27.0-33.0 [facility] Comment on above: Order Comment: No: D o not add to previous draw Performed By: #### 5 0608 ####[facility] MCHC (RBC) [Mass/Vol] 32.8 g/dL Normal 32.0-35.0 [facility] Comment on above: Order Comment: No: D o not add to previous draw Performed By: #### 5 0608 ####[address] MCV (RBC) [Entitic vol] 83.8 fL Normal 82.0-98.0 [facility] Comment on above: Order Comment: No: D o not add to previous draw Performed By: #### 5 0608 ####[address] Nucleated RBC/100 WBC (Bld) [Ratio] 0 % Normal 0-0 [facility] Comment on above: Order Comment: No: D o not add to previous draw Performed By: #### 5 0608 ####[facility] PLAT CNT 199 10*3/uL Normal 150-400 [facility] Comment on above: Order Comment: No: D o not add to previous draw Performed By: #### 5 0608 ####[facility] [place] [address] RBC (Bld) [#/Vol] 3.82 10*6/uL Low 4.20-5.70 [facility] Comment on above: Order Comment: No: D o not add to previous draw Performed By: #### 5 0608 ####[facility] [facility] [place] [place] [address], [facility] WBC (Bld) [#/Vol] 6.05 10*3/uL Normal 4.00-10.60 [facility] Comment on above: Order Comment: No: D o not add to previous draw Performed By: #### 5 0608 ####[facility] [facility] HIV1 AND 2 COMBO 4Gon 07-25 HIV COMBO Negative Normal NEGATIVE [facility] Comment on above: Order Comment: add t o previous labs if possiblePt refused. Mike cerna. Performed By: #### 3 0625 ####[facility] [facility].[address] MAGNESIUM BLOODon 07-25-2021 Magnesium [Mass/Vol] 2.4 mg/dL Normal 1.9-2.7 [facility] Comment on above: Order Comment: No: D o not add to previous draw Performed By: #### 1 0070, 10556 ####[facility] [facility] POC GLUCOSE LABon 07-25-2021 Glucose [Mass/Vol] 195 mg/dL High 70-100 [facility] Comment on above: Performed By: #### 8 5499 ####[facility] [facility] [place] [address], [facility] BASIC METABOLIC PANELon 07-09 Calcium [Mass/Vol] 8.8 mg/dL Normal 8.6-10.3 [facility] Comment on above: Order Comment: No: D o not add to previous draw Performed By: #### 0 0071, 72529 ####[facility] [facility] [place] [address], [place] Chloride [Moles/Vol] 95 mmol/L Low 98-107 [facility] Comment on above: Order Comment: No: D o not add to previous draw Performed By: #### 0 0071, 56674 ####[facility] [place] [address], [facility] CO2 [Moles/Vol] 27 mmol/L Normal 21-31 [facility] Comment on above: Order Comment: No: D o not add to previous draw Performed By: #### 0 0071, 84590 ####[facility] [facility] [place] [address], [facility] Creatinine [Mass/Vol] 1.16 mg/dL Normal 0.70-1.30 [facility] Comment on above: Order Comment: No: D o not add to previous draw Performed By: #### 0 0071, 52344 ####[facility] [facility] [place] [address], [facility] GFR/1.73 sq M.predicted among blacks MDRD (S/P/Bld) [Vol rate/Area] mL/min/{1.73_m2} Normal >60 [facility] Comment on above: Order Comment: No: D o not add to previous draw Performed By: #### 0 0071, 14258 ####[facility] [facility] [place] [address], [facility] GFR/1.73 sq M.predicted among non-blacks MDRD (S/P/Bld) [Vol rate/Area] mL/min/{1.73_m2} Normal >60 [facility] Comment on above: Order Comment: No: D o not add to previous draw Performed By: #### 0 0071, 72355 ####[facility] [place] [address], [place] Glucose [Mass/Vol] 183 mg/dL High 70-100 [facility] Comment on above: Order Comment: No: D o not add to previous draw Performed By: #### 0 0071, 38108 ####[facility] [place] [address], [facility] Potassium [Moles/Vol] 3.7 mmol/L Normal 3.5-5.1 [facility] Comment on above: Order Comment: No: D o not add to previous draw Performed By: #### 0 0071, 95276 ####[facility] [place] [address], [facility] Sodium [Moles/Vol] 134 mmol/L Low 136-145 [facility] Comment on above: Order Comment: No: D o not add to previous draw Performed By: #### 0 0071, 31380 ####[facility] [place] [address], [facility] Urea nitrogen [Mass/Vol] 63 mg/dL High 7-25 [facility] Comment on above: Order Comment: No: D o not add to previous draw Performed By: #### 0 0071, 80638 ####[facility] [facility].[address] CBC COMPLETE BLOOD COUNTon 0 - Erythrocyte distribution width (RBC) [Ratio] 14.8 % Normal 11.5-15.0 [facility] Comment on above: Order Comment: No: D o not add to previous draw Performed By: #### 5 0608 ####[facility] [facility] Hematocrit (Bld) [Volume fraction] 30.6 % Low 39.0-50.0 [facility] Comment on above: Order Comment: No: D o not add to previous draw Performed By: #### 5 0608 ####[facility] [facility] [place] [address], [facility] Hemoglobin (Bld) [Mass/Vol] 10.3 g/dL Low 13.0-17.0 [facility] Comment on above: Order Comment: No: D o not add to previous draw Performed By: #### 5 0608 ####[facility] MCH (RBC) [Entitic mass] 27.9 pg Normal 27.0-33.0 [facility] Comment on above: Order Comment: No: D o not add to previous draw Performed By: #### 5 0608 ####[facility] MCHC (RBC) [Mass/Vol] 33.7 g/dL Normal 32.0-35.0 [facility] Comment on above: Order Comment: No: D o not add to previous draw Performed By: #### 5 0608 ####[facility] MCV (RBC) [Entitic vol] 82.9 fL Normal 82.0-98.0 [facility] Comment on above: Order Comment: No: D o not add to previous draw Performed By: #### 5 0608 ####[facility] Nucleated RBC/100 WBC (Bld) [Ratio] 0 % Normal 0-0 [facility] Comment on above: Order Comment: No: D o not add to previous draw Performed By: #### 5 0608 ####[facility] PLAT CNT 240 10*3/uL Normal 150-400 [facility] Comment on above: Order Comment: No: D o not add to previous draw Performed By: #### 5 0608 ####[facility] [place] [address] RBC (Bld) [#/Vol] 3.69 10*6/uL Low 4.20-5.70 [facility] Comment on above: Order Comment: No: D o not add to previous draw Performed By: #### 5 0608 ####[facility] [place] [address], [facility] WBC (Bld) [#/Vol] 6.04 10*3/uL Normal 4.00-10.60 [facility] Comment on above: Order Comment: No: D o not add to previous draw Performed By: #### 5 0608 ####[facility] [place] [address], [place] MAGNESIUM BLOODon 07-24-2021 Magnesium [Mass/Vol] 2.6 mg/dL Normal 1.9-2.7 [facility] Comment on above: Order Comment: No: D o not add to previous draw Performed By: #### 0 0071, 72345 ####[facility] [place] [address], [facility] POC GLUCOSE LABon 07-24-2021 Glucose [Mass/Vol] 319 mg/dL High 70-100 [facility] Comment on above: Performed By: #### 8 5499 ####[facility] [facility] [place] [address], [place] Glucose [Mass/Vol] 222 mg/dL High 70-100 [facility] Comment on above: Performed By: #### 8 5499 ####[facility] [place] [address], [place] Glucose [Mass/Vol] 246 mg/dL High 70-100 [facility] Comment on above: Performed By: #### 8 5499 ####[facility] [place] [address], [place] Glucose [Mass/Vol] 172 mg/dL High 70-100 [facility] Comment on above: Performed By: #### 8 5499 ####[facility] [place] [address], [place] APTTon 07-23-2021 aPTT Coag (Bld) [Time] 66.9 s High 25.0-35.0 [facility] Comment on above: Order Comment: No: D o not add to previous draw Result Comment: ALL RESULTS MUST BE INTERPRETED WITH RESPECT TO BLOOD DRAWING ARTIFACTOR DILUTION ERROR OF ANTICOAGULANT AT THE TIME OF SAMPLING.THE APTT SHOULD NOT BE USED TO MONITOR UNFRACTIONATED HEPARIN THERAPY, THIS LABORATORY NO LONGER HAS AN ESTABLISHED THERAPEUTIC RANGE BASEDON THE APTT. IT IS RECOMMENDED THAT THE [facility] - HEPARIN ASSAY (ANTI-XAACTIVITY) BE USED FOR THIS PURPOSE. Performed By: #### 5 7307 ####[facility] aPTT Coag (Bld) [Time] 75.0 s Critically high 25.0-35.0 [facility] Comment on above: Order Comment: No: D o not add to previous draw Result Comment: Resu lt checked and called. Accurately read back by Summer Jensen RNat [id number] RESULTS MUST BE INTERPRETED WITH RESPECT TO BLOOD DRAWING ARTIFACTOR DILUTION ERROR OF ANTICOAGULANT AT THE TIME OF SAMPLING.THE APTT SHOULD NOT BE USED TO MONITOR UNFRACTIONATED HEPARIN THERAPY, THIS LABORATORY NO LONGER HAS AN ESTABLISHED THERAPEUTIC RANGE BASEDON THE APTT. IT IS RECOMMENDED THAT THE [facility] - HEPARIN ASSAY (ANTI-XAACTIVITY) BE USED FOR THIS PURPOSE. Performed By: #### 5 7307, 14894 ####[facility] BASIC METABOLIC PANELon 07-09 Calcium [Mass/Vol] 9.1 mg/dL Normal 8.6-10.3 [facility] Comment on above: Order Comment: No: D o not add to previous draw Performed By: #### 0 0071, 00420 ####[facility] [facility].[address] Chloride [Moles/Vol] 90 mmol/L Low 98-107 [facility] Comment on above: Order Comment: No: D o not add to previous draw Performed By: #### 0 0071, 54881 ####[facility] [place] [address], [facility] CO2 [Moles/Vol] 31 mmol/L Normal 21-31 [facility] Comment on above: Order Comment: No: D o not add to previous draw Performed By: #### 0 0071, 49620 ####[facility] [place] [address], [facility] Creatinine [Mass/Vol] 1.47 mg/dL High 0.70-1.30 [facility] Comment on above: Order Comment: No: D o not add to previous draw Performed By: #### 0 0071, 86836 ####[facility] [place] [address], [facility] eGFR- 59 ml/min/1.73sq m Abnormal >60 [facility] Comment on above: Order Comment: No: D o not add to previous draw Performed By: #### 0 0071, 95396 ####[facility] [place] [address], [facility] eGFR- non- 49 ml/min/1.73sq m Abnormal >60 [facility] Comment on above: Order Comment: No: D o not add to previous draw Performed By: #### 0 0071, 98066 ####[facility] [place] [address], [facility] Glucose [Mass/Vol] 217 mg/dL High 70-100 [facility] Comment on above: Order Comment: No: D o not add to previous draw Performed By: #### 0 0071, 30000 ####[facility] [place] [address], [facility] Potassium [Moles/Vol] 3.7 mmol/L Normal 3.5-5.1 [facility] Comment on above: Order Comment: No: D o not add to previous draw Performed By: #### 0 0071, 79784 ####[facility] Sodium [Moles/Vol] 132 mmol/L Low 136-145 [facility] Comment on above: Order Comment: No: D o not add to previous draw Performed By: #### 0 0071, 59556 ####[place] [address] Urea nitrogen [Mass/Vol] 76 mg/dL High 7-25 [facility] Comment on above: Order Comment: No: D o not add to previous draw Performed By: #### 0 0071, 39590 ####[place] [address] CBC COMPLETE BLOOD COUNTon 0 07-23-2021 Erythrocyte distribution width (RBC) [Ratio] 14.7 % Normal 11.5-15.0 [facility] Comment on above: Order Comment: No: D o not add to previous draw Performed By: #### 5 0608 ####[place] [address] Hematocrit (Bld) [Volume fraction] 35.5 % Low 39.0-50.0 [facility] Comment on above: Order Comment: No: D o not add to previous draw Performed By: #### 5 0608 ####[address] Hemoglobin (Bld) [Mass/Vol] 11.5 g/dL Low 13.0-17.0 [facility] Comment on above: Order Comment: No: D o not add to previous draw Performed By: #### 5 0608 ####[address] MCH (RBC) [Entitic mass] 27.4 pg Normal 27.0-33.0 [facility] Comment on above: Order Comment: No: D o not add to previous draw Performed By: #### 5 0608 ####[facility] [facility].[address] MCHC (RBC) [Mass/Vol] 32.4 g/dL Normal 32.0-35.0 [facility] Comment on above: Order Comment: No: D o not add to previous draw Performed By: #### 5 0608 ####[facility] [place] [address], [facility] MCV (RBC) [Entitic vol] 84.7 fL Normal 82.0-98.0 [facility] Comment on above: Order Comment: No: D o not add to previous draw Performed By: #### 5 0608 ####[facility] Nucleated RBC/100 WBC (Bld) [Ratio] 0 % Normal 0-0 [facility] Comment on above: Order Comment: No: D o not add to previous draw Performed By: #### 5 0608 ####[facility] [place] [address], [facility] PLAT CNT 276 10*3/uL Normal 150-400 [facility] Comment on above: Order Comment: No: D o not add to previous draw Performed By: #### 5 0608 ####[facility] [facility] [address], [facility] RBC (Bld) [#/Vol] 4.19 10*6/uL Low 4.20-5.70 [facility] Comment on above: Order Comment: No: D o not add to previous draw Performed By: #### 5 0608 ####[facility] [place] [address], [facility] WBC (Bld) [#/Vol] 8.21 10*3/uL Normal 4.00-10.60 [facility] Comment on above: Order Comment: No: D o not add to previous draw Performed By: #### 5 0608 ####[facility] [facility] [place] [address], [facility] CT ABDOMEN AND PELVIS WO CON TRASTon 07-23-2021 CT ABDOMEN AND PELVIS WO CONTRAST Normal [facility] Comment on above: Order Comment: Fluid Collection, abdominal firmness CT LUMBAR SPINE WO CONTRASTo n 07-23-2021 CT LUMBAR SPINE WO CONTRAST Normal [facility] Comment on above: Order Comment: Osteo myeomyelitis CT THORACIC SPINE WITHOUT CO NTRASTon 07-23-2021 CT THORACIC SPINE WITHOUT CONTRAST Normal [facility] Comment on above: Order Comment: Osteo myeomyelitis MAGNESIUM BLOODon 07-23-2021 Magnesium [Mass/Vol] 2.4 mg/dL Normal 1.9-2.7 [facility] Comment on above: Order Comment: No: D o not add to previous draw Performed By: #### 0 0071, 83179 ####[facility] [facility] [place] [address], [facility] [facility] GLUCOSE LABon 07-23-2021 Glucose [Mass/Vol] 147 mg/dL High 70-100 [facility] Comment on above: Performed By: #### 8 5499 ####[facility] [place] [address], [place] Glucose [Mass/Vol] 164 mg/dL High 70-100 [facility] Comment on above: Performed By: #### 8 5499 ####[facility] [place] [address], [place] Glucose [Mass/Vol] 192 mg/dL High 70-100 [facility] Comment on above: Performed By: #### 8 5499 ####[facility] [facility] [place] [place] [address], [place] Glucose [Mass/Vol] 215 mg/dL High 70-100 [facility] Comment on above: Performed By: #### 8 5499 ####[facility] [facility] UFH HEPARIN ASSAYon 07-24-19 UNFRACTIONATED HEPARIN 0.38 IU/mL Normal 0.30-0.70 [facility] Comment on above: Order Comment: ADDED PER PROTOCOL Result Comment: [place] roxaban and Apixaban will interfere with the anti Xa assay used tomonitor UFH and LMWH. Performed By: #### 5 7307, 54283 ####[facility] [facility] [place] [address], [facility] APTTon 07-22-2021 aPTT Coag (Bld) [Time] 38.6 s High 25.0-35.0 [facility] Comment on above: Order Comment: No: D o not add to previous draw Result Comment: ALL RESULTS MUST BE INTERPRETED WITH RESPECT TO BLOOD DRAWING ARTIFACTOR DILUTION ERROR OF ANTICOAGULANT AT THE TIME OF SAMPLING.THE APTT SHOULD NOT BE USED TO MONITOR UNFRACTIONATED HEPARIN THERAPY, THIS LABORATORY NO LONGER HAS AN ESTABLISHED THERAPEUTIC RANGE BASEDON THE APTT. IT IS RECOMMENDED THAT THE UFH - HEPARIN ASSAY (ANTI-XAACTIVITY) BE USED FOR THIS PURPOSE. Performed By: #### 5 7307 ####[facility] [place] [address], [facility] aPTT Coag (Bld) [Time] 98.6 s Critically high 25.0-35.0 [facility] Comment on above: Order Comment: No: D o not add to previous draw Result Comment: Resu lt checked and called. Accurately read back by Samara Thakur RN 07-22-21 at 1500.Clinical significance of the PTT result is questionable in the presenceof Heparin. Performed By: #### 5 7307 ####[facility] [facility] [address], [facility] aPTT Coag (Bld) [Time] 135.0 s Critically high 25.0-35.0 [facility] Comment on above: Order Comment: No: D o not add to previous draw Result Comment: Resu lt checked and called. Accurately read back by [email or web address] Performed By: #### 5 7332 ####[facility] [place] [address], [facility] BASIC METABOLIC PANELon 03- Calcium [Mass/Vol] 8.6 mg/dL Normal 8.6-10.3 [facility] Comment on above: Order Comment: No: D o not add to previous draw Performed By: #### 4 1000, 69158, 62602, 57941 ####[facility] [id number], [facility] Chloride [Moles/Vol] 90 mmol/L Low 98-107 [facility] Comment on above: Order Comment: No: D o not add to previous draw Performed By: #### 4 1000, 11898, 54431, 71959 ####[facility] [place] [address], [facility] CO2 [Moles/Vol] 29 mmol/L Normal 21-31 [facility] Comment on above: Order Comment: No: D o not add to previous draw Performed By: #### 4 1000, 06692, 79169, 40683 ####[facility] [place] [address], [facility] Creatinine [Mass/Vol] 2.10 mg/dL High 0.70-1.30 [facility] Comment on above: Order Comment: No: D o not add to previous draw Performed By: #### 4 1000, 92841, 46131, 96071 ####[facility] [place] [address], [facility] eGFR- 39 ml/min/1.73sq m Abnormal >60 [facility] Comment on above: Order Comment: No: D o not add to previous draw Performed By: #### 4 1000, 01727, 32048, 74353 ####[facility] [place] [address], [place] eGFR- non- 32 ml/min/1.73sq m Abnormal >60 [facility] Comment on above: Order Comment: No: D o not add to previous draw Performed By: #### 4 1000, 47688, 96389, 68975 ####[facility] [id number], [facility] Glucose [Mass/Vol] 156 mg/dL High 70-100 [facility] Comment on above: Order Comment: No: D o not add to previous draw Performed By: #### 4 1000, 78479, 73660, 72493 ####[facility] [place] [address], [place] Potassium [Moles/Vol] 3.3 mmol/L Low 3.5-5.1 [facility] Comment on above: Order Comment: No: D o not add to previous draw Performed By: #### 4 1000, 53585, 14360, 98046 ####[facility] [id number], [facility] Sodium [Moles/Vol] 132 mmol/L Low 136-145 [facility] Comment on above: Order Comment: No: D o not add to previous draw Performed By: #### 4 1000, 63269, 30890, 83076 ####[facility] [place] [address], [facility] Urea nitrogen [Mass/Vol] 86 mg/dL High 7-25 [facility] Comment on above: Order Comment: No: D o not add to previous draw Performed By: #### 4 1000, 14628, 16326, 16535 ####[facility] [place] [address], [place] C REACTIVE PROTEINon 022 CRP [Mass/Vol] 79.5 mg/L High 0.0-7.0 [facility] Comment on above: Order Comment: Yes: Add to Previous draw if able Performed By: #### 6 1405 ####[facility] [place] [address], [place] CBC COMPLETE BLOOD COUNTon 0 07-22-2021 Erythrocyte distribution width (RBC) [Ratio] 15.2 % High 11.5-15.0 [facility] Comment on above: Order Comment: No: D o not add to previous draw Performed By: #### 5 0608 ####[facility] Hematocrit (Bld) [Volume fraction] 32.7 % Low 39.0-50.0 [facility] Comment on above: Order Comment: No: D o not add to previous draw Performed By: #### 5 0608 ####[address] Hemoglobin (Bld) [Mass/Vol] 11.0 g/dL Low 13.0-17.0 [facility] Comment on above: Order Comment: No: D o not add to previous draw Performed By: #### 5 0608 ####[facility] MCH (RBC) [Entitic mass] 27.6 pg Normal 27.0-33.0 [facility] Comment on above: Order Comment: No: D o not add to previous draw Performed By: #### 5 0608 ####[place] [address] [address] MCHC (RBC) [Mass/Vol] 33.6 g/dL Normal 32.0-35.0 [facility] Comment on above: Order Comment: No: D o not add to previous draw Performed By: #### 5 0608 ####[facility] [place] [address] MCV (RBC) [Entitic vol] 82.2 fL Normal 82.0-98.0 [facility] Comment on above: Order Comment: No: D o not add to previous draw Performed By: #### 5 0608 ####[facility] [facility].[address] Nucleated RBC/100 WBC (Bld) [Ratio] 0 % Normal 0-0 [facility] Comment on above: Order Comment: No: D o not add to previous draw Performed By: #### 5 0608 ####[facility] [facility] [address], [facility] PLAT CNT 251 10*3/uL Normal 150-400 [facility] Comment on above: Order Comment: No: D o not add to previous draw Performed By: #### 5 0608 ####[address] [place] [address], [facility] RBC (Bld) [#/Vol] 3.98 10*6/uL Low 4.20-5.70 [facility] Comment on above: Order Comment: No: D o not add to previous draw Performed By: #### 5 0608 ####[facility] [place] [address], [facility] WBC (Bld) [#/Vol] 9.26 10*3/uL Normal 4.00-10.60 [facility] Comment on above: Order Comment: No: D o not add to previous draw Performed By: #### 5 0608 ####[facility] [facility] [address], [facility] MAGNESIUM BLOODon 07-22-2021 Magnesium [Mass/Vol] 2.3 mg/dL Normal 1.9-2.7 [facility] Comment on above: Order Comment: No: D o not add to previous draw Performed By: #### 4 1000, 30447, 70821, 28436 ####[facility] [place] [address], [facility] PHOSPHORUS BLOODon Phosphate [Mass/Vol] 5.5 mg/dL High 2.5-5.0 [facility] Comment on above: Order Comment: No: D o not add to previous draw Performed By: #### 4 1000, 92971, 13602, 74481 ####[facility] [place] [address], [facility] POC GLUCOSE LABon 07-22-2021 Glucose [Mass/Vol] 260 mg/dL High 70-100 [facility] Comment on above: Performed By: #### 8 5499 ####[facility] [place] [address], [facility] Glucose [Mass/Vol] 171 mg/dL High 70-100 [facility] Comment on above: Performed By: #### 8 5499 ####[facility] [place] [address], [place] Glucose [Mass/Vol] 186 mg/dL High 70-100 [facility] Comment on above: Performed By: #### 8 5499 ####[facility] [facility] [place] [address], [facility] Glucose [Mass/Vol] 178 mg/dL High 70-100 [facility] Comment on above: Performed By: #### 8 5499 ####[facility] [facility] [place] [address], [facility] SEDIMENTATION RATEon 022 SED RATE 100 mm/hr High 0-10 [facility] Comment on above: Order Comment: Yes: Add to Previous draw if able Performed By: #### 5 6506 ####[facility] [place] [address], [facility] VANCOMYCIN TIMEDon VANCOMYCIN TIMED 14.2 mcg/mL Normal [facility] Comment on above: Performed By: #### 4 1000, 19432, 33258, 21969 ####[facility] [place] [address], [facility] *BLOOD CULTUREon 07-21-2021 *BLOOD CULTURE Clinical Report: (D) Specimen: BLOOD CULTURE Collected: 07/21/2021 11:20 Status: Final Last Updated: 07/27/2021 06:23 CULT RES (Final) No Growth Day 5 Normal [facility] Comment on above: Performed By: #### 3 0313 ####[facility] [place] [address], [facility] APTTon 07-21-2021 aPTT Coag (Bld) [Time] 77.4 s Critically high 25.0-35.0 [facility] Comment on above: Order Comment: No: D o not add to previous draw Result Comment: CLIN ICAL SIGNIFICANCE OF THE PTT RESULT IS QUESTIONABLE IN THE PRESENCEOF HEPARIN.RESULTS CHECKED AND CALLED. ACCURATELY READ BACK BY SAMARA THAKUR RN @[id number] Performed By: #### 3 0917, 90305 ####[facility] [place] [address], [facility] BASIC METABOLIC PANELon 07-09 Calcium [Mass/Vol] 8.6 mg/dL Normal 8.6-10.3 [facility] Comment on above: Order Comment: No: D o not add to previous draw Performed By: #### 0 0071, 24259 ####[facility] [place] [address], [facility] Chloride [Moles/Vol] 90 mmol/L Low 98-107 [facility] Comment on above: Order Comment: No: D o not add to previous draw Performed By: #### 0 0071, 54133 ####[facility] [place] [address], [place] CO2 [Moles/Vol] 27 mmol/L Normal 21-31 [facility] Comment on above: Order Comment: No: D o not add to previous draw Performed By: #### 0 0071, 74810 ####[facility] [place] [address], [place] Creatinine [Mass/Vol] 1.89 mg/dL High 0.70-1.30 [facility] Comment on above: Order Comment: No: D o not add to previous draw Performed By: #### 0 0071, 83631 ####[facility] [place] [address], [facility] eGFR- 44 ml/min/1.73sq m Abnormal >60 [facility] Comment on above: Order Comment: No: D o not add to previous draw Performed By: #### 0 0071, 83388 ####[facility] [place] [address], [facility] eGFR- non- 37 ml/min/1.73sq m Abnormal >60 [facility] Comment on above: Order Comment: No: D o not add to previous draw Performed By: #### 0 0071, 51647 ####[facility] [place] [address], [facility] Glucose [Mass/Vol] 180 mg/dL High 70-100 [facility] Comment on above: Order Comment: No: D o not add to previous draw Performed By: #### 0 0071, 03223 ####[facility] [place] [address], [facility] Potassium [Moles/Vol] 3.5 mmol/L Normal 3.5-5.1 [facility] Comment on above: Order Comment: No: D o not add to previous draw Performed By: #### 0 0071, 82192 ####[facility] [place] [address], [place] Sodium [Moles/Vol] 130 mmol/L Low 136-145 [facility] Comment on above: Order Comment: No: D o not add to previous draw Performed By: #### 0 0071, 84498 ####[facility] [place] [address], [place] Urea nitrogen [Mass/Vol] 78 mg/dL High 7-25 [facility] Comment on above: Order Comment: No: D o not add to previous draw Performed By: #### 0 0071, 81680 ####[facility] [facility].[address] C REACTIVE PROTEINon 022 CRP [Mass/Vol] 55.2 mg/L High 0.0-7.0 [facility] Comment on above: Order Comment: No: D o not add to previous draw Performed By: #### 6 1405 ####[facility] CBC COMPLETE BLOOD COUNTon 0 07-21-2021 Erythrocyte distribution width (RBC) [Ratio] 15.1 % High 11.5-15.0 [facility] Comment on above: Order Comment: No: D o not add to previous draw Performed By: #### 5 0608 ####[facility] Hematocrit (Bld) [Volume fraction] 33.4 % Low 39.0-50.0 [facility] Comment on above: Order Comment: No: D o not add to previous draw Performed By: #### 5 0608 ####[place] [address] [address] Hemoglobin (Bld) [Mass/Vol] 10.9 g/dL Low 13.0-17.0 [facility] Comment on above: Order Comment: No: D o not add to previous draw Performed By: #### 5 0608 ####[facility] [facility].[address] MCH (RBC) [Entitic mass] 27.5 pg Normal 27.0-33.0 [facility] Comment on above: Order Comment: No: D o not add to previous draw Performed By: #### 5 0608 ####[facility] [facility].[address] MCHC (RBC) [Mass/Vol] 32.6 g/dL Normal 32.0-35.0 [facility] Comment on above: Order Comment: No: D o not add to previous draw Performed By: #### 5 0608 ####[facility] [place] [address], [facility] MCV (RBC) [Entitic vol] 84.1 fL Normal 82.0-98.0 [facility] Comment on above: Order Comment: No: D o not add to previous draw Performed By: #### 5 0608 ####[facility] [facility] [place] [address], [facility] Nucleated RBC/100 WBC (Bld) [Ratio] 0 % Normal 0-0 [facility] Comment on above: Order Comment: No: D o not add to previous draw Performed By: #### 5 0608 ####[facility] [place] [address], [facility] PLAT CNT 255 10*3/uL Normal 150-400 [facility] Comment on above: Order Comment: No: D o not add to previous draw Performed By: #### 5 0608 ####[facility] [place] [address], [facility] RBC (Bld) [#/Vol] 3.97 10*6/uL Low 4.20-5.70 [facility] Comment on above: Order Comment: No: D o not add to previous draw Performed By: #### 5 0608 ####[facility] [facility] [address], [facility] WBC (Bld) [#/Vol] 10.62 10*3/uL High 4.00-10.60 [facility] Comment on above: Order Comment: No: D o not add to previous draw Performed By: #### 5 0608 ####[facility] [place] [address], [facility] LACTATE WITH REFLEXon 2021 Lactate [Moles/Vol] 0.8 mmol/L Normal .5-2.2 [facility] Comment on above: Order Comment: No: D o not add to previous draw Performed By: #### 3 1414 ####[facility] [place] [address], [place] LDH BLOODon 07-21-2021 LDH 215 Units/L Normal 140-271 [facility] Comment on above: Order Comment: Yes: Add to Previous draw if able Performed By: #### 1 0062 ####[facility] [place] [address], [place] MAGNESIUM BLOODon 07-21-2021 Magnesium [Mass/Vol] 2.1 mg/dL Normal 1.9-2.7 [facility] Comment on above: Order Comment: No: D o not add to previous draw Performed By: #### 0 0071, 03146 ####[facility] [place] [address], [facility] POC GLUCOSE LABon 07-21-2021 Glucose [Mass/Vol] 193 mg/dL High 70-100 [facility] Comment on above: Performed By: #### 8 5499 ####[facility] [facility] [place] [address], [place] Glucose [Mass/Vol] 253 mg/dL High 70-100 [facility] Comment on above: Performed By: #### 8 5499 ####[facility] [place] [address], [place] Glucose [Mass/Vol] 212 mg/dL High 70-100 [facility] Comment on above: Performed By: #### 8 5499 ####[facility] [place] [address], [place] Glucose [Mass/Vol] 132 mg/dL High 70-100 [facility] Comment on above: Performed By: #### 8 5499 ####[facility] [place] [address], [facility] PORTABLE CHEST 1 VIEWon 07-09 PORTABLE CHEST 1 VIEW Normal [facility] Comment on above: Order Comment: R/O A telectasis PROCALCITONINon 07-21-2021 PROCALCITONIN 0.09 ng/mL Normal 0.00-0.10 [facility] Comment on above: Order Comment: No: D o not add to previous draw Result Comment: Susp ected Lower Respiratory Tract Infection:0.1-0.25ng/mL- Low likelihood for bacterial infection;Antibioticsdiscouraged.*>0.25ng/mL- Increased likelihood bacterial infection;Antibioticsencouraged. Suspected Sepsis: Strongly consider initiating antibiotics in allunstable patients.0.1-0.5ng/mL- Low likelihood for sepsis; Antibiotics discouraged.*>0.5ng/mL- Increased likelihood sepsis; Antibiotics encouraged.>2.0ng/mL- High risk of sepsis/septic shock; Antibiotics stronglyencouraged. *Recommend retesting PCT within 6-12hours if clinically indicated andinitial PCT<0.5ng/mL Performed By: #### 3 1488 ####[facility] [place] [address], [facility] SEDIMENTATION RATEon 022 SED RATE 108 mm/hr High 0-10 [facility] Comment on above: Order Comment: No: D o not add to previous draw Performed By: #### 5 6506 ####[facility] UFH HEPARIN ASSAYon 07-22-19 UNFRACTIONATED HEPARIN 0.47 IU/mL Normal 0.30-0.70 [facility] Comment on above: Result Comment: [place] roxaban and Apixaban will interfere with the anti Xa assay used tomonitor UFH and LMWH. Performed By: #### 3 0477, 84767 ####[place] [address] [facility] [address], [facility] APTTon 07-20-2021 aPTT Coag (Bld) [Time] 82.0 s Critically high 25.0-35.0 [facility] Comment on above: Order Comment: No: D o not add to previous draw Result Comment: Clin ical significance of the PTT result is questionable in the presenceof Heparin.RESULTS CHECKED AND CALLED. ACCURATELY READ BACK BY Glenna Sow RN@231 07/20/21 Performed By: #### 3 0477, 64135 ####[place] [address] [facility].[address] aPTT Coag (Bld) [Time] 79.5 s Critically high 25.0-35.0 [facility] Comment on above: Order Comment: No: D o not add to previous draw Result Comment: Resu lt checked and called. Accurately read back by FRANCI CARPENTER RN ON07/20/2021 AT 15:45 Performed By: #### 5 7307 ####[address] [place] [address], [facility] aPTT Coag (Bld) [Time] 64.4 s High 25.0-35.0 [facility] Comment on above: Order Comment: No: D o not add to previous draw Result Comment: ALL RESULTS MUST BE INTERPRETED WITH RESPECT TO BLOOD DRAWING ARTIFACTOR DILUTION ERROR OF ANTICOAGULANT AT THE TIME OF SAMPLING.THE APTT SHOULD NOT BE USED TO MONITOR UNFRACTIONATED HEPARIN THERAPY, THIS LABORATORY NO LONGER HAS AN ESTABLISHED THERAPEUTIC RANGE BASEDON THE APTT. IT IS RECOMMENDED THAT THE UFH - HEPARIN ASSAY (ANTI-XAACTIVITY) BE USED FOR THIS PURPOSE. Performed By: #### 5 7307 ####[facility] [place] [address], [facility] aPTT Coag (Bld) [Time] 78.9 s Critically high 25.0-35.0 [facility] Comment on above: Order Comment: No: D o not add to previous draw Result Comment: CLIN ICAL SIGNIFICANCE OF THE PTT RESULT IS QUESTIONABLE IN THE PRESENCEOF HEPARIN.Result checked and called. Accurately read back by Elisabeth Pollard RN [id number] Performed By: #### 5 7307 ####[facility] BASIC METABOLIC PANELon 07-09 Calcium [Mass/Vol] 8.9 mg/dL Normal 8.6-10.3 [facility] Comment on above: Order Comment: No: D o not add to previous draw Performed By: #### 4 999, 16809, 77042 ####[facility] [place] [address], [facility] Chloride [Moles/Vol] 92 mmol/L Low 98-107 [facility] Comment on above: Order Comment: No: D o not add to previous draw Performed By: #### 4 999, 67216, 65574 ####[facility] [place] [address], [facility] CO2 [Moles/Vol] 25 mmol/L Normal 21-31 [facility] Comment on above: Order Comment: No: D o not add to previous draw Performed By: #### 4 999, 76114, 08619 ####[facility] [place] [address], [facility] Creatinine [Mass/Vol] 1.97 mg/dL High 0.70-1.30 [facility] Comment on above: Order Comment: No: D o not add to previous draw Performed By: #### 4 999, 65868, 16549 ####[facility] [place] [address], [facility] eGFR- 42 ml/min/1.73sq m Abnormal >60 [facility] Comment on above: Order Comment: No: D o not add to previous draw Performed By: #### 4 1000, 08427, 54188 ####[facility] [place] [address], [facility] eGFR- non- 35 ml/min/1.73sq m Abnormal >60 [facility] Comment on above: Order Comment: No: D o not add to previous draw Performed By: #### 4 1000, 90005, 62689 ####[facility] [facility] [place] [place] [address], [facility] Glucose [Mass/Vol] 104 mg/dL High 70-100 [facility] Comment on above: Order Comment: No: D o not add to previous draw Performed By: #### 4 1000, 70758, 17776 ####[facility] [place] [address], [facility] Potassium [Moles/Vol] 4.3 mmol/L Normal 3.5-5.1 [facility] Comment on above: Order Comment: No: D o not add to previous draw Performed By: #### 4 1000, 32947, 93459 ####[facility] [facility] [id number], [facility] Sodium [Moles/Vol] 134 mmol/L Low 136-145 [facility] Comment on above: Order Comment: No: D o not add to previous draw Performed By: #### 4 1000, 94742, 18949 ####[facility] [address] [id number], [facility] Urea nitrogen [Mass/Vol] 60 mg/dL High 7-25 [facility] Comment on above: Order Comment: No: D o not add to previous draw Performed By: #### 4 1000, 28208, 63903 ####[facility] CBC W/DIFFon 07-20-2021 ABS IMM GRANS 0.0 10*3/uL Normal 0.0-0.2 [facility] Comment on above: Order Comment: No: D o not add to previous draw Performed By: #### 5 0103 ####[facility] [place] [address], [facility] ABS NEUTROPHILS 4.4 10*3/uL Normal 1.6-7.6 [facility] Comment on above: Order Comment: No: D o not add to previous draw Performed By: #### 5 0103 ####[address] Basophils (Bld) [#/Vol] 0.1 10*3/uL Normal 0.0-0.2 [facility] Comment on above: Order Comment: No: D o not add to previous draw Performed By: #### 5 0103 ####[facility] [place] [address], [facility] Basophils/100 WBC (Bld) 0.6 % Normal 0.0-1.0 [facility] Comment on above: Order Comment: No: D o not add to previous draw Performed By: #### 5 0103 ####[facility] [place] [address], [facility] Eosinophils (Bld) [#/Vol] 0.2 10*3/uL Normal 0.0-0.5 [facility] Comment on above: Order Comment: No: D o not add to previous draw Performed By: #### 5 0103 ####[place] [address] [place] [address], [facility] Eosinophils/100 WBC (Bld) 1.8 % Normal 0.0-6.0 [facility] Comment on above: Order Comment: No: D o not add to previous draw Performed By: #### 5 0103 ####[facility] Erythrocyte distribution width (RBC) [Ratio] 15.6 % High 11.5-15.0 [facility] Comment on above: Order Comment: No: D o not add to previous draw Performed By: #### 5 3 ####[facility]3000 [facility].[address] Hematocrit (Bld) [Volume fraction] 38.7 % Low 39.0-50.0 [facility] Comment on above: Order Comment: No: D o not add to previous draw Performed By: #### 5 3 ####[facility] Hemoglobin (Bld) [Mass/Vol] 12.3 g/dL Low 13.0-17.0 [facility] Comment on above: Order Comment: No: D o not add to previous draw Performed By: #### 5 3 ####[facility] IMMATURE GRANS 0.1 % Normal 0.0-1.0 [facility] Comment on above: Order Comment: No: D o not add to previous draw Performed By: #### 5 3 ####[facility] [facility].[address] Lymphocytes (Bld) [#/Vol] 2.8 10*3/uL Normal 1.2-4.0 [facility] Comment on above: Order Comment: No: D o not add to previous draw Performed By: #### 5 3 ####[facility] Lymphocytes/100 WBC (Bld) 34.0 % Normal 20.0-45.0 [facility] Comment on above: Order Comment: No: D o not add to previous draw Performed By: #### 5 3 ####[facility] [place] [address], [facility] MCH (RBC) [Entitic mass] 27.4 pg Normal 27.0-33.0 [facility] Comment on above: Order Comment: No: D o not add to previous draw Performed By: #### 5 3 ####[facility] [facility] [place] [address], [facility] MCHC (RBC) [Mass/Vol] 31.8 g/dL Low 32.0-35.0 [facility] Comment on above: Order Comment: No: D o not add to previous draw Performed By: #### 5 3 ####[facility] [place] [address], [facility] MCV (RBC) [Entitic vol] 86.2 fL Normal 82.0-98.0 [facility] Comment on above: Order Comment: No: D o not add to previous draw Performed By: #### 5 3 ####[facility] [place] [address], [facility] Monocytes (Bld) [#/Vol] 0.8 10*3/uL Normal 0.1-1.0 [facility] Comment on above: Order Comment: No: D o not add to previous draw Performed By: #### 5 3 ####[facility] [facility].[address] MONOS 9.6 % Normal 5.0-12.0 [facility] Comment on above: Order Comment: No: D o not add to previous draw Performed By: #### 5 0103 ####[facility] Neutrophils/100 WBC (Bld) 53.9 % Normal 40.0-72.0 [facility] Comment on above: Order Comment: No: D o not add to previous draw Performed By: #### 5 0103 ####[facility] [facility] [place] [address], [facility] Nucleated RBC/100 WBC (Bld) [Ratio] 0 % Normal 0-0 [facility] Comment on above: Order Comment: No: D o not add to previous draw Performed By: #### 5 0103 ####[facility] [facility] [place] [address], [facility] PLAT CNT 267 10*3/uL Normal 150-400 [facility] Comment on above: Order Comment: No: D o not add to previous draw Performed By: #### 5 0103 ####[facility] [facility] [place] [address], [facility] RBC (Bld) [#/Vol] 4.49 10*6/uL Normal 4.20-5.70 [facility] Comment on above: Order Comment: No: D o not add to previous draw Performed By: #### 5 0103 ####[facility] [facility] [place] [address], [facility] WBC (Bld) [#/Vol] 8.24 10*3/uL Normal 4.00-10.60 [facility] Comment on above: Order Comment: No: D o not add to previous draw Performed By: #### 5 3 ####[facility] [facility] [place] [address], [facility] MAGNESIUM BLOODon 07-20-2021 Magnesium [Mass/Vol] 2.3 mg/dL Normal 1.9-2.7 [facility] Comment on above: Order Comment: No: D o not add to previous draw Performed By: #### 4 1000, 21028, 07366 ####[facility] [facility] [place] [address], [facility] PHOSPHORUS BLOODon Phosphate [Mass/Vol] 7.5 mg/dL High 2.5-5.0 [facility] Comment on above: Order Comment: No: D o not add to previous draw Performed By: #### 4 1000, 87881, 75891 ####[facility] [facility] [address], [facility] POC GLUCOSE LABon 07-20-2021 Glucose [Mass/Vol] 214 mg/dL High 70-100 [facility] Comment on above: Performed By: #### 8 5499 ####[facility] [facility] [place] [address], [facility] Glucose [Mass/Vol] 120 mg/dL High 70-100 [facility] Comment on above: Performed By: #### 8 5499 ####[facility] [facility] [place] [address], [facility] Glucose [Mass/Vol] 252 mg/dL High 70-100 [facility] Comment on above: Performed By: #### 8 5499 ####[facility] [facility] [place] [address], [facility] Glucose [Mass/Vol] 139 mg/dL High 70-100 [facility] Comment on above: Performed By: #### 8 5499 ####[facility] [facility].[address] UFH HEPARIN ASSAYon 07-21-19 UNFRACTIONATED HEPARIN 0.50 IU/mL Normal 0.30-0.70 [facility] Comment on above: Result Comment: UFH added per protocolRivaroxaban and Apixaban will interfere with the anti Xa assay used tomonitor UFH and LMWH. Performed By: #### 3 0477, 77332 ####[facility] [facility].[address] APTTon 07-19-2021 aPTT Coag (Bld) [Time] 66.5 s High 25.0-35.0 [facility] Comment on above: Order Comment: No: D o not add to previous draw Result Comment: CLIN ICAL SIGNIFICANCE OF THE PTT RESULT IS QUESTIONABLE IN THE PRESENCEOF HEPARIN.ALL RESULTS MUST BE INTERPRETED WITH RESPECT TO BLOOD DRAWING ARTIFACTOR DILUTION ERROR OF ANTICOAGULANT AT THE TIME OF SAMPLING.THE APTT SHOULD NOT BE USED TO MONITOR UNFRACTIONATED HEPARIN THERAPY, THIS LABORATORY NO LONGER HAS AN ESTABLISHED THERAPEUTIC RANGE BASEDON THE APTT. IT IS RECOMMENDED THAT THE UFH - HEPARIN ASSAY (ANTI-XAACTIVITY) BE USED FOR THIS PURPOSE. Performed By: #### 3 0477, 61898 ####[place] [address] [facility].[address] aPTT Coag (Bld) [Time] 64.3 s High 25.0-35.0 [facility] Comment on above: Order Comment: No: D o not add to previous draw Result Comment: ALL RESULTS MUST BE INTERPRETED WITH RESPECT TO BLOOD DRAWING ARTIFACTOR DILUTION ERROR OF ANTICOAGULANT AT THE TIME OF SAMPLING.THE APTT SHOULD NOT BE USED TO MONITOR UNFRACTIONATED HEPARIN THERAPY, THIS LABORATORY NO LONGER HAS AN ESTABLISHED THERAPEUTIC RANGE BASEDON THE APTT. IT IS RECOMMENDED THAT THE UFH - HEPARIN ASSAY (ANTI-XAACTIVITY) BE USED FOR THIS PURPOSE. Performed By: #### 3 0477, 96697 ####[place] [address] [facility].[address] BASIC METABOLIC PANELon 07-09 Calcium [Mass/Vol] 9.1 mg/dL Normal 8.6-10.3 [facility] Comment on above: Order Comment: No: D o not add to previous draw Performed By: #### 0 0071, 76068, 36947 ####[place] [address] [facility].[address] Chloride [Moles/Vol] 94 mmol/L Low 98-107 [facility] Comment on above: Order Comment: No: D o not add to previous draw Performed By: #### 0 0071, 33797, 22083 ####[facility] [facility] [address], [facility] CO2 [Moles/Vol] 28 mmol/L Normal 21-31 [facility] Comment on above: Order Comment: No: D o not add to previous draw Performed By: #### 0 0071, 02277, 57497 ####[facility] [place] [address], [facility] Creatinine [Mass/Vol] 1.45 mg/dL High 0.70-1.30 [facility] Comment on above: Order Comment: No: D o not add to previous draw Performed By: #### 0 0071, 78283, 68170 ####[facility] [place] [address], [facility] eGFR- 60 ml/min/1.73sq m Abnormal >60 [facility] Comment on above: Order Comment: No: D o not add to previous draw Performed By: #### 0 0071, 60833, 37022 ####[facility] [place] [address], [facility] eGFR- non- 50 ml/min/1.73sq m Abnormal >60 [facility] Comment on above: Order Comment: No: D o not add to previous draw Performed By: #### 0 0071, 97364, 39189 ####[facility] [place] [address], [facility] Glucose [Mass/Vol] 118 mg/dL High 70-100 [facility] Comment on above: Order Comment: No: D o not add to previous draw Performed By: #### 0 0071, 64324, 18769 ####[facility] [place] [address], [place] Potassium [Moles/Vol] 3.7 mmol/L Normal 3.5-5.1 [facility] Comment on above: Order Comment: No: D o not add to previous draw Performed By: #### 0 0071, 61621, 28564 ####[facility] [place] [address], [place] Sodium [Moles/Vol] 135 mmol/L Low 136-145 [facility] Comment on above: Order Comment: No: D o not add to previous draw Performed By: #### 0 0071, 00926, 51926 ####[facility] [facility].[address] Urea nitrogen [Mass/Vol] 48 mg/dL High 7-25 [facility] Comment on above: Order Comment: No: D o not add to previous draw Performed By: #### 0 0071, 46215, 16790 ####[facility] CBC W/DIFFon 07-19-2021 ABS IMM GRANS 0.0 10*3/uL Normal 0.0-0.2 [facility] Comment on above: Order Comment: No: D o not add to previous draw Performed By: #### 5 0103 ####[facility] ABS NEUTROPHILS 5.1 10*3/uL Normal 1.6-7.6 [facility] Comment on above: Order Comment: No: D o not add to previous draw Performed By: #### 5 0103 ####[facility] [facility] [address], [facility] Basophils (Bld) [#/Vol] 0.0 10*3/uL Normal 0.0-0.2 [facility] Comment on above: Order Comment: No: D o not add to previous draw Performed By: #### 5 0103 ####[facility] [place] [address], [facility] Basophils/100 WBC (Bld) 0.5 % Normal 0.0-1.0 [facility] Comment on above: Order Comment: No: D o not add to previous draw Performed By: #### 5 3 ####[facility] [place] [address], [facility] Eosinophils (Bld) [#/Vol] 0.2 10*3/uL Normal 0.0-0.5 [facility] Comment on above: Order Comment: No: D o not add to previous draw Performed By: #### 5 0103 ####[facility] [facility].[address] Eosinophils/100 WBC (Bld) 2.2 % Normal 0.0-6.0 [facility] Comment on above: Order Comment: No: D o not add to previous draw Performed By: #### 5 0103 ####[facility] [facility].[address] Erythrocyte distribution width (RBC) [Ratio] 15.5 % High 11.5-15.0 [facility] Comment on above: Order Comment: No: D o not add to previous draw Performed By: #### 5 0103 ####[facility] [facility].[address] Hematocrit (Bld) [Volume fraction] 33.6 % Low 39.0-50.0 [facility] Comment on above: Order Comment: No: D o not add to previous draw Performed By: #### 5 0103 ####[facility] [facility].[address] Hemoglobin (Bld) [Mass/Vol] 10.8 g/dL Low 13.0-17.0 [facility] Comment on above: Order Comment: No: D o not add to previous draw Performed By: #### 5 0103 ####[facility] [facility].[address] IMMATURE GRANS 0.2 % Normal 0.0-1.0 [facility] Comment on above: Order Comment: No: D o not add to previous draw Performed By: #### 5 3 ####[facility] [place] [address], [facility] Lymphocytes (Bld) [#/Vol] 2.7 10*3/uL Normal 1.2-4.0 [facility] Comment on above: Order Comment: No: D o not add to previous draw Performed By: #### 5 0103 ####[facility] Lymphocytes/100 WBC (Bld) 31.2 % Normal 20.0-45.0 [facility] Comment on above: Order Comment: No: D o not add to previous draw Performed By: #### 5 0103 ####[facility] [facility].[address] MCH (RBC) [Entitic mass] 27.5 pg Normal 27.0-33.0 [facility] Comment on above: Order Comment: No: D o not add to previous draw Performed By: #### 5 3 ####[facility] [facility].[address] MCHC (RBC) [Mass/Vol] 32.1 g/dL Normal 32.0-35.0 [facility] Comment on above: Order Comment: No: D o not add to previous draw Performed By: #### 5 3 ####[facility] [facility].[address] MCV (RBC) [Entitic vol] 85.5 fL Normal 82.0-98.0 [facility] Comment on above: Order Comment: No: D o not add to previous draw Performed By: #### 5 0103 ####[facility] [facility] [address], [facility] Monocytes (Bld) [#/Vol] 0.7 10*3/uL Normal 0.1-1.0 [facility] Comment on above: Order Comment: No: D o not add to previous draw Performed By: #### 5 3 ####[facility] [facility] [address], [facility] MONOS 8.0 % Normal 5.0-12.0 [facility] Comment on above: Order Comment: No: D o not add to previous draw Performed By: #### 5 0103 ####[facility] [place] [address], [facility] Neutrophils/100 WBC (Bld) 57.9 % Normal 40.0-72.0 [facility] Comment on above: Order Comment: No: D o not add to previous draw Performed By: #### 5 0103 ####[facility] [facility] [address], [facility] Nucleated RBC/100 WBC (Bld) [Ratio] 0 % Normal 0-0 [facility] Comment on above: Order Comment: No: D o not add to previous draw Performed By: #### 5 0103 ####[facility] [place] [address], [facility] PLAT CNT 261 10*3/uL Normal 150-400 [facility] Comment on above: Order Comment: No: D o not add to previous draw Performed By: #### 5 0103 ####[facility] [facility] [address], [facility] RBC (Bld) [#/Vol] 3.93 10*6/uL Low 4.20-5.70 [facility] Comment on above: Order Comment: No: D o not add to previous draw Performed By: #### 5 0103 ####[facility] [place] [address], [facility] WBC (Bld) [#/Vol] 8.75 10*3/uL Normal 4.00-10.60 [facility] Comment on above: Order Comment: No: D o not add to previous draw Performed By: #### 5 3 ####[facility] [facility] [address], [facility] MAGNESIUM BLOODon 07-19-2021 Magnesium [Mass/Vol] 1.9 mg/dL Normal 1.9-2.7 [facility] Comment on above: Order Comment: No: D o not add to previous draw Performed By: #### 0 0071, 60243, 17948 ####[facility]3000 [facility] MICROALBUMIN URINE RANDOMon 07-19-2021 Albumin DL <= 20 mg/L (U) [Mass/Vol] 3.0 mg/dL Normal [facility] Comment on above: Order Comment: No: D o not add to previous draw Performed By: #### 4 3006, 24349, 12403 ####[facility] [facility].[address] Creatinine (U) [Mass/Vol] 62.0 mg/dL Normal [facility] Comment on above: Order Comment: No: D o not add to previous draw Result Comment: Ther e are no established reference values for random urine specimens Performed By: #### 4 3006, 40366, 15940 ####[facility]3000 [facility].[address] MICROALBUMIN/CREATINI NE RATIO 48.4 MG/G CREAT High 0.0-30.0 [facility] Comment on above: Order Comment: No: D o not add to previous draw Performed By: #### 4 3006, 00956, 61329 ####[facility] [facility] [place] [place] [address], [facility] PHOSPHORUS BLOODon Phosphate [Mass/Vol] 6.7 mg/dL High 2.5-5.0 [facility] Comment on above: Order Comment: No: D o not add to previous draw Performed By: #### 0 0071, 89554, 77224 ####[facility] [facility] [place] [place] [address], [facility] POC GLUCOSE LABon 07-19-2021 Glucose [Mass/Vol] 213 mg/dL High 70-100 [facility] Comment on above: Performed By: #### 8 5499 ####[facility] [place] [address], [place] Glucose [Mass/Vol] 256 mg/dL High 70-100 [facility] Comment on above: Performed By: #### 8 5499 ####[facility] [place] [address], [place] Glucose [Mass/Vol] 269 mg/dL High 70-100 [facility] Comment on above: Performed By: #### 8 5499 ####[facility] [place] [address], [place] Glucose [Mass/Vol] 157 mg/dL High 70-100 [facility] Comment on above: Performed By: #### 8 5499 ####[facility] [place] [address], [place] SODIUM URINE RANDOMon 2021 Sodium (U) [Moles/Vol] 77 mmol/L Normal [facility] Comment on above: Order Comment: No: D o not add to previous draw Result Comment: Ther e are no established reference values for random urine specimens Performed By: #### 4 3006, 04470, 20140 ####[facility] [place] [address], [place] UA,MICROSCOPIC REQUIREDon Appearance (U) SL CLOUDY Abnormal CLEAR [facility] Comment on above: Order Comment: No: D o not add to previous draw Performed By: #### 9 0150 ####[facility] [place] [address], [place] Bilirubin Ql (U) Negative Normal NEGATIVE [facility] Comment on above: Order Comment: No: D o not add to previous draw Performed By: #### 9 0150 ####[facility] [place] [address], [place] Color (U) YELLOW Normal YELLOW [facility] Comment on above: Order Comment: No: D o not add to previous draw Performed By: #### 9 0150 ####[facility] [place] [address], [facility] EPIS NONE SEEN Normal FEW,OCC,NONE SEEN [facility] Comment on above: Order Comment: No: D o not add to previous draw Performed By: #### 9 0150 ####[facility] [place] [address], [facility] Glucose Ql (U) Negative Normal NEGATIVE [facility] Comment on above: Order Comment: No: D o not add to previous draw Performed By: #### 9 0150 ####[facility] [place] [address], [facility] Hemoglobin Ql (U) SMALL Abnormal NEGATIVE [facility] Comment on above: Order Comment: No: D o not add to previous draw Performed By: #### 9 0150 ####[facility] [place] [address], [facility] Hyaline casts LM Ql (Urine sed) 6 /LPF Abnormal NONE SEEN [facility] Comment on above: Order Comment: No: D o not add to previous draw Performed By: #### 9 0150 ####[facility] [place] [address], [facility] KETONE Negative Normal NEGATIVE [facility] Comment on above: Order Comment: No: D o not add to previous draw Performed By: #### 9 0150 ####[facility] [place] [address], [facility] LEUK ROMEO Negative Normal NEGATIVE [facility] Comment on above: Order Comment: No: D o not add to previous draw Performed By: #### 9 0150 ####[facility] [place] [address], [facility] MUCUS THREADS OCC Abnormal NONE SEEN [facility] Comment on above: Order Comment: No: D o not add to previous draw Performed By: #### 9 0150 ####[facility] [place] [address], [facility] Nitrite Ql (U) Negative Normal NEGATIVE [facility] Comment on above: Order Comment: No: D o not add to previous draw Performed By: #### 9 0150 ####[facility] [place] [address], [facility] pH (U) 5.0 [pH] Normal 5.0-8.0 [facility] Comment on above: Order Comment: No: D o not add to previous draw Performed By: #### 9 0150 ####[facility] [place] [address], [facility] Protein Ql (U) Negative Normal NEGATIVE [facility] Comment on above: Order Comment: No: D o not add to previous draw Performed By: #### 9 0150 ####[facility] RBC 3-5 Abnormal NONE SEEN [facility] Comment on above: Order Comment: No: D o not add to previous draw Performed By: #### 9 0150 ####[facility] [place] [address], [facility] SPEC GRAV 1.009 Low 1.015-1.020 [facility] Comment on above: Order Comment: No: D o not add to previous draw Performed By: #### 9 0150 ####[facility] [place] [address], [facility] WBC UA 0-2 Abnormal NONE SEEN [facility] Comment on above: Order Comment: No: D o not add to previous draw Performed By: #### 9 0150 ####[facility] [place] [address], [facility] UFH HEPARIN ASSAYon 07-20-19 UNFRACTIONATED HEPARIN 0.42 IU/mL Normal 0.30-0.70 [facility] Comment on above: Result Comment: Kylie roxaban and Apixaban will interfere with the anti Xa assay used tomonitor UFH and LMWH.Rivaroxaban and Apixaban will interfere with the anti Xa assay used tomonitor UFH and LMWH. Performed By: #### 3 0477, 83738 ####[facility] [facility] [place] [address], [facility] UNFRACTIONATED HEPARIN 0.42 IU/mL Normal 0.30-0.70 [facility] Comment on above: Result Comment: [place] roxaban and Apixaban will interfere with the anti Xa assay used tomonitor UFH and LMWH. Performed By: #### 3 0477 ####[facility] [facility].[address] UNFRACTIONATED HEPARIN 0.48 IU/mL Normal 0.30-0.70 [facility] Comment on above: Order Comment: Added on per protocol Result Comment: [place] roxaban and Apixaban will interfere with the anti Xa assay used tomonitor UFH and LMWH. Performed By: #### 3 0477, 55898 ####[facility] [facility].[address] UREA NITROGEN URon Urea nitrogen [Mass/Vol] 148 mg/dL Normal [facility] Comment on above: Order Comment: No: D o not add to previous draw Result Comment: Ther e are no established reference values for random urine specimens Performed By: #### 4 3006, 21600, 15231 ####[facility] [facility] [place] [address], [facility] APTTon 07-18-2021 aPTT Coag (Bld) [Time] 49.2 s High 25.0-35.0 [facility] Comment on above: Order Comment: This order is a replacement of the rejected order with accession [id number]. Result Comment: ALL RESULTS MUST BE INTERPRETED WITH RESPECT TO BLOOD DRAWING ARTIFACTOR DILUTION ERROR OF ANTICOAGULANT AT THE TIME OF SAMPLING.THE APTT SHOULD NOT BE USED TO MONITOR UNFRACTIONATED HEPARIN THERAPY, THIS LABORATORY NO LONGER HAS AN ESTABLISHED THERAPEUTIC RANGE BASEDON THE APTT. IT IS RECOMMENDED THAT THE UFH - HEPARIN ASSAY (ANTI-XAACTIVITY) BE USED FOR THIS PURPOSE. Performed By: #### 5 7307 ####[address] aPTT Coag (Bld) [Time] 38.4 s High 25.0-35.0 [facility] Comment on above: Result Comment: ALL RESULTS MUST BE INTERPRETED WITH RESPECT TO BLOOD DRAWING ARTIFACTOR DILUTION ERROR OF ANTICOAGULANT AT THE TIME OF SAMPLING.THE APTT SHOULD NOT BE USED TO MONITOR UNFRACTIONATED HEPARIN THERAPY, THIS LABORATORY NO LONGER HAS AN ESTABLISHED THERAPEUTIC RANGE BASEDON THE APTT. IT IS RECOMMENDED THAT THE UFH - HEPARIN ASSAY (ANTI-XAACTIVITY) BE USED FOR THIS PURPOSE. Performed By: #### 3 0477, 99751 ####[place] [address] aPTT Coag (Bld) [Time] 33.3 s Normal 25.0-35.0 [facility] Comment on above: Order Comment: No: D o not add to previous draw Result Comment: ALL RESULTS MUST BE INTERPRETED WITH RESPECT TO BLOOD DRAWING ARTIFACTOR DILUTION ERROR OF ANTICOAGULANT AT THE TIME OF SAMPLING.THE APTT SHOULD NOT BE USED TO MONITOR UNFRACTIONATED HEPARIN THERAPY, THIS LABORATORY NO LONGER HAS AN ESTABLISHED THERAPEUTIC RANGE BASEDON THE APTT. IT IS RECOMMENDED THAT THE UFH - HEPARIN ASSAY (ANTI-XAACTIVITY) BE USED FOR THIS PURPOSE. Performed By: #### 5 6101, 08796, 20859 ####[place] [address] BASIC METABOLIC PANELon - 0-2021 Calcium [Mass/Vol] 9.2 mg/dL Normal 8.6-10.3 [facility] Comment on above: Order Comment: No: D o not add to previous draw Performed By: #### 0 0071, 14855 ####[facility] [place] [address], [facility] Chloride [Moles/Vol] 99 mmol/L Normal 98-107 [facility] Comment on above: Order Comment: No: D o not add to previous draw Performed By: #### 0 0071, 39362 ####[facility] [place] [address], [place] CO2 [Moles/Vol] 28 mmol/L Normal 21-31 [facility] Comment on above: Order Comment: No: D o not add to previous draw Performed By: #### 0 0071, 19497 ####[facility] [place] [address], [facility] Creatinine [Mass/Vol] 0.88 mg/dL Normal 0.70-1.30 [facility] Comment on above: Order Comment: No: D o not add to previous draw Performed By: #### 0 0071, 16846 ####[facility] [place] [address], [place] GFR/1.73 sq M.predicted among blacks MDRD (S/P/Bld) [Vol rate/Area] mL/min/{1.73_m2} Normal >60 [facility] Comment on above: Order Comment: No: D o not add to previous draw Performed By: #### 0 0071, 96302 ####[facility] [place] [address], [place] GFR/1.73 sq M.predicted among non-blacks MDRD (S/P/Bld) [Vol rate/Area] mL/min/{1.73_m2} Normal >60 [facility] Comment on above: Order Comment: No: D o not add to previous draw Performed By: #### 0 0071, 58579 ####[facility] [place] [address], [place] Glucose [Mass/Vol] 132 mg/dL High 70-100 [facility] Comment on above: Order Comment: No: D o not add to previous draw Performed By: #### 0 0071, 02029 ####[facility] [place] [address], [place] Potassium [Moles/Vol] 3.6 mmol/L Normal 3.5-5.1 [facility] Comment on above: Order Comment: No: D o not add to previous draw Performed By: #### 0 0071, 22938 ####[facility] [place] [address], [place] Sodium [Moles/Vol] 135 mmol/L Low 136-145 [facility] Comment on above: Order Comment: No: D o not add to previous draw Performed By: #### 0 0071, 41951 ####[facility] [place] [address], [place] Urea nitrogen [Mass/Vol] 28 mg/dL High 7-25 [facility] Comment on above: Order Comment: No: D o not add to previous draw Performed By: #### 0 0071, 93571 ####[facility] [place] [address], [place] Calcium [Mass/Vol] 9.3 mg/dL Normal 8.6-10.3 [facility] Comment on above: Order Comment: No: D o not add to previous draw Performed By: #### 9 9909, 84586, 80915, 54206 ####[facility] [place] [address], [place] Chloride [Moles/Vol] 102 mmol/L Normal 98-107 [facility] Comment on above: Order Comment: No: D o not add to previous draw Performed By: #### 9 9909, 02711, 02201, 33962 ####[facility] [place] [address], [place] CO2 [Moles/Vol] 26 mmol/L Normal 21-31 [facility] Comment on above: Order Comment: No: D o not add to previous draw Performed By: #### 9 9909, 96103, 16859, 61700 ####[facility] [place] [address], [place] Creatinine [Mass/Vol] 0.84 mg/dL Normal 0.70-1.30 [facility] Comment on above: Order Comment: No: D o not add to previous draw Performed By: #### 9 9909, 82197, 37743, 71569 ####[facility] [place] [address], [place] GFR/1.73 sq M.predicted among blacks MDRD (S/P/Bld) [Vol rate/Area] mL/min/{1.73_m2} Normal >60 [facility] Comment on above: Order Comment: No: D o not add to previous draw Performed By: #### 9 9909, 84488, 31135, 66834 ####[facility] [place] [address], [place] GFR/1.73 sq M.predicted among non-blacks MDRD (S/P/Bld) [Vol rate/Area] mL/min/{1.73_m2} Normal >60 [facility] Comment on above: Order Comment: No: D o not add to previous draw Performed By: #### 9 9909, 01301, 64609, 24036 ####[facility] [place] [address], [place] Glucose [Mass/Vol] 112 mg/dL High 70-100 [facility] Comment on above: Order Comment: No: D o not add to previous draw Performed By: #### 9 9909, 51999, 81534, 92450 ####[facility] [place] [address], [place] Potassium [Moles/Vol] 3.7 mmol/L Normal 3.5-5.1 [facility] Comment on above: Order Comment: No: D o not add to previous draw Performed By: #### 9 9909, 79689, 33537, 69949 ####[facility] [place] [address], [facility] Sodium [Moles/Vol] 136 mmol/L Normal 136-145 [facility] Comment on above: Order Comment: No: D o not add to previous draw Performed By: #### 9 9909, 55029, 24336, 29745 ####[facility] Urea nitrogen [Mass/Vol] 27 mg/dL High 7-25 [facility] Comment on above: Order Comment: No: D o not add to previous draw Performed By: #### 9 9909, 02217, 22959, 77531 ####[facility] CBC COMPLETE BLOOD COUNTon 0 07-18-2021 Erythrocyte distribution width (RBC) [Ratio] 15.3 % High 11.5-15.0 [facility] Comment on above: Order Comment: No: D o not add to previous draw Performed By: #### 5 0608 ####[facility] [facility] Hematocrit (Bld) [Volume fraction] 30.2 % Low 39.0-50.0 [facility] Comment on above: Order Comment: No: D o not add to previous draw Performed By: #### 5 0608 ####[facility] [place] [address], [facility] Hemoglobin (Bld) [Mass/Vol] 10.0 g/dL Low 13.0-17.0 [facility] Comment on above: Order Comment: No: D o not add to previous draw Performed By: #### 5 0608 ####[facility] MCH (RBC) [Entitic mass] 27.4 pg Normal 27.0-33.0 [facility] Comment on above: Order Comment: No: D o not add to previous draw Performed By: #### 5 0608 ####[facility] MCHC (RBC) [Mass/Vol] 33.1 g/dL Normal 32.0-35.0 [facility] Comment on above: Order Comment: No: D o not add to previous draw Performed By: #### 5 0608 ####[facility] [place] [address] MCV (RBC) [Entitic vol] 82.7 fL Normal 82.0-98.0 [facility] Comment on above: Order Comment: No: D o not add to previous draw Performed By: #### 5 0608 ####[place] [address] Nucleated RBC/100 WBC (Bld) [Ratio] 0 % Normal 0-0 [facility] Comment on above: Order Comment: No: D o not add to previous draw Performed By: #### 5 0608 ####[facility] PLAT CNT 230 10*3/uL Normal 150-400 [facility] Comment on above: Order Comment: No: D o not add to previous draw Performed By: #### 5 0608 ####[facility] [place] [address], [facility] RBC (Bld) [#/Vol] 3.65 10*6/uL Low 4.20-5.70 [facility] Comment on above: Order Comment: No: D o not add to previous draw Performed By: #### 5 0608 ####[facility] [place] [address], [facility] WBC (Bld) [#/Vol] 6.12 10*3/uL Normal 4.00-10.60 [facility] Comment on above: Order Comment: No: D o not add to previous draw Performed By: #### 5 0608 ####[facility] CBC W/DIFFon 07-18-2021 ABS IMM GRANS 0.0 10*3/uL Normal 0.0-0.2 [facility] Comment on above: Performed By: #### 5 0103 ####[facility] ABS NEUTROPHILS 2.9 10*3/uL Normal 1.6-7.6 [facility] Comment on above: Performed By: #### 5 3 ####[facility] Basophils (Bld) [#/Vol] 0.0 10*3/uL Normal 0.0-0.2 [facility] Comment on above: Performed By: #### 5 0103 ####[facility] Basophils/100 WBC (Bld) 0.5 % Normal 0.0-1.0 [facility] Comment on above: Performed By: #### 5 0103 ####[facility] [facility] [address], [facility] Eosinophils (Bld) [#/Vol] 0.1 10*3/uL Normal 0.0-0.5 [facility] Comment on above: Performed By: #### 5 0103 ####[facility] [place] [address], [facility] Eosinophils/100 WBC (Bld) 2.2 % Normal 0.0-6.0 [facility] Comment on above: Performed By: #### 5 0103 ####[facility] Erythrocyte distribution width (RBC) [Ratio] 15.5 % High 11.5-15.0 [facility] Comment on above: Performed By: #### 102 ####[facility] Hematocrit (Bld) [Volume fraction] 31.0 % Low 39.0-50.0 [facility] Comment on above: Performed By: #### 102 ####[place] [address] Hemoglobin (Bld) [Mass/Vol] 10.2 g/dL Low 13.0-17.0 [facility] Comment on above: Performed By: #### 102 ####[address] IMMATURE GRANS 0.2 % Normal 0.0-1.0 [facility] Comment on above: Performed By: #### 102 ####[place] [address] Lymphocytes (Bld) [#/Vol] 1.9 10*3/uL Normal 1.2-4.0 [facility] Comment on above: Performed By: #### 3 ####[place] [address] Lymphocytes/100 WBC (Bld) 34.4 % Normal 20.0-45.0 [facility] Comment on above: Performed By: #### 102 ####[address] MCH (RBC) [Entitic mass] 27.6 pg Normal 27.0-33.0 [facility] Comment on above: Performed By: #### 5 0103 ####[facility] [facility].[address] MCHC (RBC) [Mass/Vol] 32.9 g/dL Normal 32.0-35.0 [facility] Comment on above: Performed By: #### 102 ####[facility] [facility].[address] MCV (RBC) [Entitic vol] 83.8 fL Normal 82.0-98.0 [facility] Comment on above: Performed By: #### 102 ####[facility] Monocytes (Bld) [#/Vol] 0.6 10*3/uL Normal 0.1-1.0 [facility] Comment on above: Performed By: #### 102 ####[facility] [facility].[address] MONOS 10.3 % Normal 5.0-12.0 [facility] Comment on above: Performed By: #### 102 ####[facility] Neutrophils/100 WBC (Bld) 52.4 % Normal 40.0-72.0 [facility] Comment on above: Performed By: #### 102 ####[facility] [facility].[address] Nucleated RBC/100 WBC (Bld) [Ratio] 0 % Normal 0-0 [facility] Comment on above: Performed By: #### 3 ####[facility] [facility].[address] PLAT CNT 226 10*3/uL Normal 150-400 [facility] Comment on above: Performed By: #### 3 ####[facility] [place] [address], [place] [address], [place] RBC (Bld) [#/Vol] 3.70 10*6/uL Low 4.20-5.70 [facility] Comment on above: Performed By: #### 5 0103 ####[facility] [facility] [address], [facility] WBC (Bld) [#/Vol] 5.56 10*3/uL Normal 4.00-10.60 [facility] Comment on above: Performed By: #### 5 0103 ####[facility] [facility].[address] HEMOGLOBIN A1Con 07-18-2021 Glucose [Moles/Vol] 146 mmol/L Normal [facility] Comment on above: Order Comment: If no t done in EDNo: Do not add to previous draw Performed By: #### 3 1791 ####[facility] [facility].[address] HbA1c (Bld) [Mass fraction] 6.7 % High 4.0-6.0 [facility] Comment on above: Order Comment: If no t done in EDNo: Do not add to previous draw Performed By: #### 3 1791 ####[facility] [facility] [address], [facility] LIVER BATTERYon 07-18-2021 Albumin [Mass/Vol] 4.0 g/dL Normal 3.5-5.7 [facility] Comment on above: Order Comment: No: D o not add to previous draw Performed By: #### 9 9909, 08651, 10288, 13667 ####[facility] [facility] [address], [facility] ALKALINE PHOSPH 53 IU/L Normal 34-104 [facility] Comment on above: Order Comment: No: D o not add to previous draw Performed By: #### 9 9909, 64949, 81066, 91901 ####[facility] [place] [address], [facility] ALT [Catalytic activity/Vol] 17 U/L Normal 7-52 [facility] Comment on above: Order Comment: No: D o not add to previous draw Performed By: #### 9 9909, 84166, 57203, 14766 ####[facility] [place] [address], [facility] AST [Catalytic activity/Vol] 20 U/L Normal 13-39 [facility] Comment on above: Order Comment: No: D o not add to previous draw Performed By: #### 9 9909, 04237, 41416, 43908 ####[facility] [place] [address], [facility] Bilirubin [Mass/Vol] 0.6 mg/dL Normal 0.3-1.0 [facility] Comment on above: Order Comment: No: D o not add to previous draw Performed By: #### 9 9909, 81755, 37249, 94224 ####[facility] [place] [address], [facility] Bilirubin.direct [Mass/Vol] 0.2 mg/dL Normal 0.0-0.2 [facility] Comment on above: Order Comment: No: D o not add to previous draw Performed By: #### 9 9909, 88765, 76021, 54271 ####[facility] [place] [address], [facility] Protein [Mass/Vol] 7.3 g/dL Normal 6.0-8.3 [facility] Comment on above: Order Comment: No: D o not add to previous draw Performed By: #### 9 9909, 47787, 41365, 49868 ####[facility] [place] [address], [place] MAGNESIUM BLOODon 07-18-2021 Magnesium [Mass/Vol] 1.8 mg/dL Low 1.9-2.7 [facility] Comment on above: Order Comment: No: D o not add to previous draw Performed By: #### 0 0071, 51935 ####[facility] [place] [address], [place] Magnesium [Mass/Vol] 1.7 mg/dL Low 1.9-2.7 [facility] Comment on above: Order Comment: No: D o not add to previous draw Performed By: #### 9 9909, 67702, 34311, 27527 ####[facility] [place] [address], [place] POC GLUCOSE LABon 07-18-2021 Glucose [Mass/Vol] 244 mg/dL High 70-100 [facility] Comment on above: Performed By: #### 8 5499 ####[facility] [place] [address], [place] Glucose [Mass/Vol] 155 mg/dL High 70-100 [facility] Comment on above: Performed By: #### 8 5499 ####[facility] [place] [address], [place] Glucose [Mass/Vol] 246 mg/dL High 70-100 [facility] Comment on above: Performed By: #### 8 5499 ####[facility] [place] [address], [place] Glucose [Mass/Vol] 140 mg/dL High 70-100 [facility] Comment on above: Performed By: #### 8 5499 ####[facility] [place] [address], [place] POC SARS COV2 ANTIGEN NEGATI VEon 07-18-2021 POC SARS COV2 ANTIGEN NEG Negative Normal NEGATIVE [facility] Comment on above: Result Comment: Nega tive results should be treated as presumptive and confirmation witha molecular assay, if necessary, for patient management, may beperformed. Negative results do not rule out SARS-CoV-2 infection and notshould be used as the sole basis for treatment or patient managementdecisions, including infection control decisions. Negative resultsshould be considered in the context of a patient's recent exposures,history, and the presence of clinical signs and symptoms consistent withCOVID-19.The Clarity COVID-19 Antigen Rapid Test Cassette is a rapidchromatographic immunoassay intended for the qualitative detection ofthe nucleocapsid protein antigen from SARS-CoV-2 in directnasopharyngeal swab (COURTROOM REPORTER) specimens from individuals who are suspected ofCOVID-19 by their healthcare provider within the first six days ofsymptom onset. Testing is limited to laboratories certified under theClinical Laboratory Improvement Amendments of 1988 (CLIA), 42 U.S.C.???263a, that meet the requirements to perform moderate complexity, highcomplexity, or waived tests. This test is authorized for use at thePoint of Care (POC), i.e., in patient care settings operating under aCLIA Certificate of Waiver, Certificate of Compliance, or Certificate ofAccreditation. Performed By: #### 3 2044 ####[facility] PROTHROMBIN TIMEon 2 INR Coag (PPP) [Relative time] 1.07 {INR} Normal 0.91-1.16 [facility] Comment on above: Result Comment: ACCC P RECOMMENDED INR FOR WARFARIN THERAPY CONDITION INRPROPHYLAXIS OF VENOUS THROMBOSIS 2-3(HIGH-RISK SURGERY)TREATMENT OF VENOUS THROMBOSIS 2-3TREATMENT OF PULMONARY EMBOLISM 2-3PREVENTION OF SYSTEMIC EMBOLISM: 2-3 ACUTE MYOCARDIAL INFARCTION TISSUE HEART VALVES VALVULAR HEART DISEASE ATRIAL FIBRILLATION RECURRENT SYSTEMIC EMBOLISMMECHANICAL HEART VALVE 2.5-3.5 FROM: ORAL ANTICOAGULANTS. MECHANISM OF ACTION, CLINICALEFFECTIVENESS, AND OPTIMAL THERAPEUTIC RANGE. [id number];108:[id number]. Performed By: #### 5 6101, 95965, 55552 ####[facility] [facility].[address] PT Coag (PPP) [Time] 13.9 s Normal 12.3-14.8 [facility] Comment on above: Result Comment: ALL RESULTS MUST BE INTERPRETED WITH RESPECT TO BLOOD DRAWING ARTIFACTOR DILUTION ERROR OF ANTICOAGULANT AT THE TIME OF SAMPLING. Performed By: #### 5 6101, 59376, 66251 ####[facility] [facility].[address] INR Coag (PPP) [Relative time] 1.08 {INR} Normal 0.91-1.16 [facility] Comment on above: Order Comment: No: D o not add to previous draw Result Comment: ACCC P RECOMMENDED INR FOR [place]AR[place]IN THERAPY CONDITION INRPROPHYLAXIS OF VENOUS THROMBOSIS 2-3(HIGH-RISK SURGERY)TREATMENT OF VENOUS THROMBOSIS 2-3TREATMENT OF PULMONARY EMBOLISM 2-3PREVENTION OF SYSTEMIC EMBOLISM: 2-3 ACUTE MYOCARDIAL INFARCTION TISSUE HEART VALVES VALVULAR HEART DISEASE ATRIAL FIBRILLATION RECURRENT SYSTEMIC EMBOLISMMECHANICAL HEART VALVE 2.5-3.5 FROM: ORAL ANTICOAGULANTS. MECHANISM OF ACTION, CLINICALEFFECTIVENESS, AND OPTIMAL THERAPEUTIC RANGE. [id number];[id number]. Performed By: #### 5 6101 ####[facility] [facility] [address], [facility] PT Coag (PPP) [Time] 14.0 s Normal 12.3-14.8 [facility] Comment on above: Order Comment: No: D o not add to previous draw Result Comment: ALL RESULTS MUST BE INTERPRETED WITH RESPECT TO BLOOD DRAWING ARTIFACTOR DILUTION ERROR OF ANTICOAGULANT AT THE TIME OF SAMPLING. Performed By: #### 5 6101 ####[place] [address] [facility].[address] TROPONIN-Ion 07-18-2021 Troponin I.cardiac [Mass/Vol] 0.01 ng/mL Normal 0.00-0.04 [facility] Comment on above: Order Comment: No: D o not add to previous draw Result Comment: REFE RENCE RANGES: 0.00 - 0.04 ng/ml NORMAL 0.05 - 0.50 ng/ml INDETERMINATE > 0.50 ng/ml CONSISTENT WITH AN M.I. Performed By: #### 9 9909, 07156, 34579, 58963 ####[place] [address] [facility] [address], [facility] UFH HEPARIN ASSAYon 07-19-19 UNFRACTIONATED HEPARIN 0.34 IU/mL Normal 0.30-0.70 [facility] Comment on above: Result Comment: [place] roxaban and Apixaban will interfere with the anti Xa assay used tomonitor UFH and LMWH. Performed By: #### 3 0477, 26387 ####[place] [address] [facility].[address] UNFRACTIONATED HEPARIN 0.27 IU/mL Low 0.30-0.70 [facility] Comment on above: Result Comment: [place] roxaban and Apixaban will interfere with the anti Xa assay used tomonitor UFH and LMWH. Performed By: #### 5 6101, 77702, 77474 ####[place] [address] [facility] [place] [address], [facility] BNP (B-TYPE NATRIURETIC PEPT CHANNING)on 07-17-2021 Natriuretic peptide B (Bld) [Mass/Vol] 85 pg/mL Normal 0-100 [facility] Comment on above: Order Comment: Yes: Add to Previous draw if able Result Comment: Give n the appropriate clinical setting a BNP result of >100 pg/mLindicates congestive heart failure. Performed By: #### 8 5123 ####[facility] [facility].[address] POC GLUCOSE LABon 07-17-2021 Glucose [Mass/Vol] 184 mg/dL High 70-100 [facility] Comment on above: Performed By: #### 8 5499 ####[facility] [facility] [address], [facility] [facility] Glucose [Mass/Vol] 106 mg/dL High 70-100 [facility] Comment on above: Performed By: #### [id number] ####[facility] [facility].[address] PORTABLE CHEST 1 VIEWon PORTABLE CHEST 1 VIEW Normal [facility] Comment on above: Order Comment: Evalu ate for Cardiomegaly XR FOOT CRUZ MIN 3 VIEWSon XR FOOT CRUZ MIN 3 VIEWS EXAMINATION: XR FOOT CRUZ MIN 3 VIEWS HISTORY: Pain in both feet COMPARISON: 04/18/2021 FINDINGS: RIGHT FINDINGS: BONES: No acute fracture or dislocation. Moderate enthesopathic spurring of the calcaneus. Mild to moderate degenerative changes of the midfoot. No focal lytic or sclerotic change SOFT TISSUES: Soft tissue injury and swelling first proximal and distal phalanges. No radiopaque foreign body OTHER: Negative. 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 No acute fracture or dislocation. No focal lytic or sclerotic changes. Moderate enthesopathic spurring of the calcaneus. SOFT TISSUES: Negative. No visible soft tissue swelling. OTHER: Negative. 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 Terrence Gunderson Basophils/100 WBC (Bld) 0.8 % Normal 0.2-2.0 [facility] Comment on above: Performed By: #### C BC #### [facility] Laboratory [address] [place] [address] Dr. Terrence Gunderson EO # 0.1 103/ul Normal 0.0-0.7 [facility] Comment on above: Performed By: #### C BC #### [facility] [address] [place] [address] Dr. Terrence Gunderson Eosinophils/100 WBC (Bld) 1.1 % Normal 0.9-7.0 [facility] Comment on above: Performed By: #### C BC #### [facility] [address] [place] [address] Dr. Terrence Gunderson Erythrocyte distribution width (RBC) [Ratio] 15.4 % Critically high 11.0-15.0 [facility] Comment on above: Performed By: #### C BC #### [facility] [address] [place] [address] Dr. Terrence Gunderson Hematocrit (Bld) [Volume fraction] 31.8 % Critically low 42.0-54.0 [facility] Comment on above: Performed By: #### C BC #### [facility] [address] [place] [address] Dr. Terrence Gunderson Hemoglobin (Bld) [Mass/Vol] 9.8 g/dL Critically low 14.0-18.0 [facility] Comment on above: Performed By: #### C BC #### [facility] [address] [place] [address] Dr. Terrence Gunderson IG # 0.02 10e3/ul Normal 0.00-0.03 [facility] Comment on above: Performed By: #### C BC #### [facility] [address] [place] [address] Dr. Terrence Gunderson IG % 0.3 % Normal 0.0-0.5 [facility] Comment on above: Performed By: #### C BC #### [facility] [address] [place] [address] Dr. Terrence Gunderson LYMPH # 1.9 103/ul Normal 1.2-3.8 [facility] Comment on above: Performed By: #### C BC #### [facility] [address] [place] [address] Dr. Terrence Gunderson Lymphocytes/100 WBC (Bld) 30.6 % Normal 20.5-60.0 [facility] Comment on above: Performed By: #### C BC #### [facility] [address] [place] [address] Dr. Terrence Gunderosn MANUAL DIFF REQ NO Normal [facility] Comment on above: Performed By: #### C BC #### [facility] [address] [place] [address] Dr. Terrence Gunderson MCH (RBC) [Entitic mass] 26.7 pg Normal 25.9-34.0 [facility] Comment on above: Performed By: #### C BC #### [facility] [address] [place] [address] Dr. Terrence Gunderson MCHC (RBC) [Mass/Vol] 30.8 g/dL Normal 29.9-35.2 [facility] Comment on above: Performed By: #### C BC #### [facility] [address] [place] [address] Dr. Terrence Gunderson MCV (RBC) [Entitic vol] 86.6 fL Normal 80.0-94.0 [facility] Comment on above: Performed By: #### C BC #### [facility] [address] [place] [address] Dr. Terrence Gunderson MONO # 0.5 103/ul Normal 0.3-0.8 [facility] Comment on above: Performed By: #### C BC #### [facility] [address] [place] [address] Dr. Terrence Gunderson Monocytes/100 WBC (Bld) 7.6 % Normal 1.7-12.0 [facility] Comment on above: Performed By: #### C BC #### [facility] [address] [place] [address] Dr. Terrence Gunderson NEUT # 3.8 103/ul Normal 1.4-6.5 [facility] Comment on above: Performed By: #### C BC #### [facility] [address] [place] [address] Dr. Terrence Gunderson Neutrophils/100 WBC (Bld) 59.6 % Normal 43.0-75.0 [facility] Comment on above: Performed By: #### C BC #### [facility] [address] [place] [address] Dr. Terrence Gunderson Platelet mean volume (Bld) [Entitic vol] 11.1 fL Normal 9.5-13.5 [facility] Comment on above: Performed By: #### C BC #### [facility] [address] [place] [address] Dr. Terrence Gunderson PLT 202 103/ul Normal 150-450 [facility] Comment on above: Performed By: #### C BC #### [facility] [address] [place] [address] Dr. Terrence Gunderson RBC 3.67 106/ul Critically low 4.70-6.10 [facility] Comment on above: Performed By: #### C BC #### [facility] [address] [place] [address] Dr. Terrence Gunderson WBC 6.3 103/ul Normal 4.0-11.0 [facility] Comment on above: Performed By: #### C BC #### [facility] [address] [place] [address] Dr. Terrence Gunderson CULTURE BLOODon 06-18-2021 Microscopic examination of blood, culture Culture Observations: NO GROWTH AT 5 DAYS. Normal [facility] Comment on above: Performed By: #### C BC #### [facility] [address] [place] [address] Dr. Terrence Gunderson PROF CHEM 8 (BAS METB)on Anion gap [Moles/Vol] 12.1 mmol/L Normal [facility] Comment on above: Performed By: #### C BC #### [facility] [address] [place] [address] Dr. Terrence Gunderson Calcium [Mass/Vol] 9.4 mg/dL Normal 8.4-10.2 [facility] Comment on above: Performed By: #### C BC #### [facility] [address] [address] [address] Terrence Gunderson Chloride [Moles/Vol] 105 mmol/L Normal 98-107 [facility] Comment on above: Performed By: #### C BC #### [facility] [address] [place] [address] Dr. Terrence Gunderson CO2 [Moles/Vol] 28.3 mmol/L Normal 22.0-30.0 [facility] Comment on above: Performed By: #### C BC #### [facility] [address] [place] [address] Dr. Terrence Gunderson Creatinine [Mass/Vol] 0.68 mg/dL Normal 0.66-1.25 [facility] Comment on above: Performed By: #### C BC #### [facility] [address] [place] [address] Dr. Terrence Gunderson EGFR-AF BRUNEIAN >60 Normal >=60 [facility] Comment on above: Performed By: #### C BC #### [facility] [address] [place] [address] Dr. Terrence Gunderson EGFR-NON AF BRUNEIAN >60 Normal >=60 [facility] Comment on above: Performed By: #### C BC #### [facility] [address] [place] [address] Dr. Terrence Gunderson Glucose [Mass/Vol] 119 mg/dL Critically high 74-106 [facility] Comment on above: Performed By: #### C BC #### [facility] [address] [place] [address] Dr. Terrence Gunderson Potassium [Moles/Vol] 4.4 mmol/L Normal 3.4-5.0 [facility] Comment on above: Performed By: #### C BC #### [facility] [address] [place], [place] [address] Dr. Terrence Gunderson Sodium [Moles/Vol] 141 mmol/L Normal 137-145 [facility] Comment on above: Performed By: #### C BC #### [facility] [address] [place], [place] [address] Dr. Terrence Gunderson Urea nitrogen [Mass/Vol] 20.0 mg/dL Normal 9.0-20.0 [facility] Comment on above: Performed By: #### C BC #### [facility] [address] [address] [address] Terrence Gunderson Urea nitrogen/Creatinine [Mass ratio] 29.4 mg/mg Normal [facility] Comment on above: Performed By: #### C BC #### [facility] [address] [address] [address] Terrence Gunderson XR FOOT LT MIN 3 VIEWSon XR FOOT LT MIN 3 VIEWS EXAMINATION: XR FOOT RT MIN 3 VIEWS, XR FOOT LT MIN 3 VIEWS HISTORY: Pain in right foot ; follow-up distal first toe plantar ulcer COMPARISON: XR foot bilateral 03/05/2021 FINDINGS: RIGHT FINDINGS: BONES: Mild degenerative changes of the midfoot. No fracture, dislocation, or destructive cortical changes. SOFT TISSUES: No visible soft tissue swelling. OTHER: Negative. LEFT FINDINGS: BONES: Indication of the first toe at the level of the metatarsophalangeal joint. SOFT TISSUES: Soft tissue changes and swelling at site of amputation. OTHER: Negative. IMPRESSION: RIGHT CONCLUSION: 1. Stable mild degenerative changes. No findings to suggest osteomyelitis or acute bone injury. LEFT CONCLUSION: 1. Interval amputation of first toe. No suspicious bone findings. 2. Soft tissue swelling at site of amputation. Electronically authenticated by: KARIN RDZ Date: 2021-04-18 12:13 Normal [facility] Vital Signs Date Time Vital Sign Value Performing Clinician Facility 04-04-2024 15:48-0500 Body height 177.8 cm Homar Goodrich DPM Work Phone: [facility] 04-04-2024 15:48-0500 Body mass index (BMI) [Ratio] 26.69 kg/m2 Homar Goodrich DPM Work Phone: [facility] 04-04-2024 15:48-0500 Body weight 84.37 kg Homar Goodrich DPM Work Phone: [facility] 03-07-2024 14:36-0400 Body height 180.3 cm Homar Goodrich DPM Work Phone: [facility] 03-07-2024 14:36-0400 Body mass index (BMI) [Ratio] 24.41 kg/m2 Homar Goodrich DPM Work Phone: [facility] 03-07-2024 14:36-0400 Body weight 79.38 kg Homar Goodrich DPM Work Phone: [facility] 03-04-2024 14:38-0400 Body height 177.8 cm MD Suraj Llanos Work Phone: [facility] 03-04-2024 14:38-0400 Body mass index (BMI) [Ratio] 41.3 kg/m2 MD Suraj Llanos Work Phone: [facility] 03-04-2024 14:38-0400 Body weight 130.63 kg MD Suraj Llanos Work Phone: [facility] 03-04-2024 14:38-0400 Diastolic blood pressure 78 mm[Hg] MD Suraj Llanos Work Phone: [facility] 03-04-2024 14:38-0400 Heart rate 89 /min MD Suraj Llanos Work Phone: [facility] 03-04-2024 14:38-0400 Systolic blood pressure 165 mm[Hg] MD Suraj Llanos Work Phone: [facility] 03-02-2024 15:22-0400 Body height 177.8 cm MD Suraj Llanos Work Phone: [facility] 03-02-2024 15:22-0400 Body mass index (BMI) [Ratio] 40.6 kg/m2 MD Suraj Llanos Work Phone: [facility] 03-02-2024 15:22-0400 Body weight 128.36 kg MD Suraj Llanos Work Phone: [facility] 03-02-2024 15:22-0400 Diastolic blood pressure 52 mm[Hg] MD Suraj Llanos Work Phone: [facility] 03-02-2024 15:22-0400 Heart rate 87 /min MD Suraj Llanos Work Phone: [facility] 03-02-2024 15:22-0400 SaO2% (BldA) [Mass fraction] 97 % MD Suraj Llanos Work Phone: [facility] 03-02-2024 15:22-0400 Systolic blood pressure 101 mm[Hg] MD Suraj Llanos Work Phone: [facility] 12-29-2023 11:44-0400 Body height 177.8 cm MD Suraj Llanos Work Phone: [facility] 12-29-2023 11:44-0400 Body mass index (BMI) [Ratio] 41.1 kg/m2 MD Suraj Llanos Work Phone: [facility] 12-29-2023 11:44-0400 Body weight 130.18 kg MD Suraj Llanos Work Phone: [facility] 12-29-2023 11:44-0400 Diastolic blood pressure 72 mm[Hg] MD Suraj Llanos Work Phone: [facility] 12-29-2023 11:44-0400 Heart rate 84 /min MD Suraj Llanos Work Phone: [facility] 12-29-2023 11:44-0400 Systolic blood pressure 118 mm[Hg] MD Suraj Llanos Work Phone: [facility] 10-14-2023 15:22-0400 Body height 177.8 cm [facility] 10-14-2023 15:22-0400 Body mass index (BMI) [Ratio] 42.2 kg/m2 [facility] 10-14-2023 15:22-0400 Body weight 133.35 kg [facility] 10-14-2023 15:22-0400 Diastolic blood pressure 67 mm[Hg] [facility] 10-14-2023 15:22-0400 Heart rate 79 /min [facility] 10-14-2023 15:22-0400 SaO2% (BldA) [Mass fraction] 95 % [facility] 10-14-2023 15:22-0400 Systolic blood pressure 131 mm[Hg] [facility] 08-13-2023 09:28-0400 Body height 177.8 cm MD Suraj Llanos Work Phone: [facility] 08-13-2023 09:28-0400 Body mass index (BMI) [Ratio] 43.2 kg/m2 MD Suraj Llanos Work Phone: [facility] 08-13-2023 09:28-0400 Body weight 136.75 kg MD Suraj Llanos Work Phone: [facility] 08-13-2023 09:28-0400 Diastolic blood pressure 74 mm[Hg] MD Suraj Llanos Work Phone: [facility] 08-13-2023 09:28-0400 Heart rate 71 /min MD Suraj Llanos Work Phone: [facility] 08-13-2023 09:28-0400 Systolic blood pressure 167 mm[Hg] MD Suraj Llanos Work Phone: [facility] 06-12-2023 13:30-0500 Body height 177.8 cm Suraj Llanos Other [facility] 06-12-2023 13:30-0500 Body mass index (BMI) [Ratio] 43.33 kg/m2 Suraj Llanos Other [facility] Other 06-12-2023 13:30-0500 Body weight 136.99 kg Suraj Llanos Other [facility] Other 06-12-2023 13:30-0500 Body weight 136.98 kg MD Suraj Llanos Work Phone: [facility] 06-12-2023 13:30-0500 Diastolic blood pressure 89 mm[Hg] Suraj Llanos Other [facility] 06-12-2023 13:30-0500 Systolic blood pressure 165 mm[Hg] Suraj Llanos Other [facility] 05-12-2023 15:45-0500 Body height 177.8 cm Suraj Llanos Other [facility] Other 05-12-2023 15:45-0500 Body mass index (BMI) [Ratio] 42.75 kg/m2 Suraj Llanos Other [facility] Other 05-12-2023 15:45-0500 Body weight 135.17 kg Suraj Llanos Other [facility] Other 05-12-2023 15:45-0500 Diastolic blood pressure 92 mm[Hg] Suraj Llanos Other [facility] Other 05-12-2023 15:45-0500 Respiratory rate 16 /min Suraj Llanos Other [facility] Other 05-12-2023 15:45-0500 Systolic blood pressure 136 mm[Hg] Suraj Llanos Other [facility] Other 02-26-2023 15:46-0400 Body temperature 98.06 [degF] Derrick Benson [facility] 02-26-2023 15:46-0400 Diastolic blood pressure 85 mm[Hg] Derrick Benson [facility] 02-26-2023 15:46-0400 Heart rate 89 /min Derrick Benson [facility] 02-26-2023 15:46-0400 Respiratory rate 18 /min Derrick Benson [facility] 02-26-2023 15:46-0400 SaO2% (BldA) [Mass fraction] 96 % Derrick Benson [facility] 02-26-2023 15:46-0400 Systolic blood pressure 139 mm[Hg] Derrick Benson [facility] 01-27-2023 13:00-0400 Body height 177.8 cm Suraj Llanos Other [facility] Other 01-27-2023 13:00-0400 Body mass index (BMI) [Ratio] 42.32 kg/m2 Suraj Llanos Other [facility] Other 01-27-2023 13:00-0400 Body weight 133.81 kg Suraj Llanos Other [facility] Other 01-27-2023 13:00-0400 Diastolic blood pressure 84 mm[Hg] Suraj Llanos Other [facility] Other 01-27-2023 13:00-0400 Systolic blood pressure 150 mm[Hg] Suraj Llaons Other [facility] Other 01-15-2023 11:16-0400 Hourly Rounding Octavio Paster [facility] 01-15-2023 11:16-0400 Promise to Return Octavio Paster [facility] 01-15-2023 10:00-0400 Hourly Rounding Octavio Paster [facility] 09-07-2023 10:00-0400 Promise to Return Octavio Paster [facility] 01-15-2023 09:00-0400 Hourly Rounding Octavio Paster [facility] 01-15-2023 09:00-0400 Promise to Return Octavio Paster [facility] 01-15-2023 08:30-0400 Diastolic blood pressure 78 mm[Hg] Octavio Paster [facility] 01-15-2023 08:30-0400 Mean blood pressure 98 mm[Hg] Octavio Paster [facility] 01-15-2023 08:30-0400 Systolic blood pressure 139 mm[Hg] Octavio Paster [facility] 01-15-2023 08:08-0400 SaO2% (BldA) [Mass fraction] 97 % Octavio Paster [facility] 01-15-2023 07:40-0400 Heart rate 76 /min Octavio Paster [facility] 01-15-2023 07:40-0400 SaO2% (BldA) [Mass fraction] 99 % Octavio Paster [facility] 01-15-2023 07:40-0400 Respiratory rate 18 /min Octavio Paster [facility] 01-15-2023 07:40-0400 Body temperature 97.52 [degF] Octavio Paster [facility] 01-15-2023 07:39-0400 Diastolic blood pressure 78 mm[Hg] Octavio Paster [facility] 01-15-2023 07:39-0400 Mean blood pressure 98 mm[Hg] Octavio Paster [facility] 01-15-2023 07:39-0400 Systolic blood pressure 139 mm[Hg] Octavio Paster [facility] 01-15-2023 03:06-0400 Heart rate 82 /min Octavio Paster [facility] 01-15-2023 03:06-0400 SaO2% (BldA) [Mass fraction] 97 % Octavio Paster [facility] 01-15-2023 03:06-0400 Diastolic blood pressure 79 mm[Hg] Octavio Paster [facility] 01-15-2023 03:06-0400 Mean blood pressure 102 mm[Hg] Octavio Paster [facility] 01-15-2023 03:06-0400 Systolic blood pressure 148 mm[Hg] Octavio Paster [facility] 01-15-2023 03:06-0400 Body temperature 97.7 [degF] Octavio Paster [facility] 01-15-2023 03:06-0400 Blood Pressure Location Octavio Paster [facility] 01-15-2023 03:06-0400 Mean blood pressure 102 mm[Hg] Octavio Paster [facility] 01-15-2023 03:06-0400 Respiratory rate 18 /min Octavio Paster [facility] 01-15-2023 00:39-0400 Heart rate 77 /min Octavio Paster [facility] 01-15-2023 00:00-0400 Blood Pressure Location Octavio Paster [facility] 01-15-2023 00:00-0400 Body temperature 97.88 [degF] Octavio Paster [facility] 01-15-2023 00:00-0400 Mean blood pressure 105 mm[Hg] Octavio Paster [facility] 01-14-2023 21:36-0400 gluc 174 mg/dL Octavio Paster [facility] 01-14-2023 19:47-0400 Mean blood pressure 114 mm[Hg] Octavio Paster [facility] 01-14-2023 00:32-0400 Body temperature 97.52 [degF] Octavio Paster [facility] 01-14-2023 00:32-0400 Heart rate 68 /min Octavio Paster [facility] 01-14-2023 00:32-0400 Respiratory rate 18 /min Octavio Paster [facility] 01-13-2023 17:25-0400 gluc 169 mg/dL Octavio Paster [facility] 01-13-2023 12:00-0400 gluc 240 mg/dL Octavio Paster [facility] 01-13-2023 07:58-0400 Body temperature 97.34 [degF] Octavio Paster [facility] 01-12-2023 16:11-0400 Blood Pressure Location Octavio Paster [facility] 01-11-2023 17:55-0400 Respiratory rate 16 /min Octavio Paster [facility] 01-11-2023 08:00-0400 Respiratory rate 18 /min Octavio Paster [facility] 01-10-2023 17:21-0400 Heart rate 68 /min Octavio Paster [facility] 01-10-2023 12:16-0400 Heart rate 80 /min Octavio Paster [facility] 11-26-2022 11:30-0400 Body height 177.8 cm Suraj Llanos Other [facility] Other 11-26-2022 11:30-0400 Body mass index (BMI) [Ratio] 43.76 kg/m2 Suraj Llanos Other [facility] Other 11-26-2022 11:30-0400 Body weight 138.35 kg Suraj Llanos Other [facility] Other 11-26-2022 11:30-0400 Diastolic blood pressure 70 mm[Hg] Suraj Llanos Other [facility] Other 11-26-2022 11:30-0400 Systolic blood pressure 125 mm[Hg] Suraj Llanos Other [facility] Other 11-07-2022 13:45-0400 Body height 177.8 cm Suraj Llanos Other [facility] Other 11-07-2022 13:45-0400 Body mass index (BMI) [Ratio] 45.05 kg/m2 Suraj Llanos Other [facility] Other 11-07-2022 13:45-0400 Body weight 142.43 kg Suraj Llanos Other [facility] Other 11-07-2022 13:45-0400 Diastolic blood pressure 81 mm[Hg] Suraj Llanos Other [facility] Other 11-07-2022 13:45-0400 Systolic blood pressure 132 mm[Hg] Suraj Llanos Other [facility] Other 08-18-2022 18:36-0400 Hourly Rounding [facility] 08-18-2022 18:36-0400 Promise to Return [facility] 08-18-2022 17:36-0400 Hourly Rounding [facility] 08-18-2022 17:36-0400 Promise to Return [facility] 08-18-2022 16:16-0400 Hourly Rounding [facility] 08-18-2022 16:16-0400 Promise to Return [facility] 08-18-2022 15:00-0400 Blood Pressure Location [facility] 08-18-2022 15:00-0400 Diastolic blood pressure 75 mm[Hg] [facility] 08-18-2022 15:00-0400 Heart rate 77 /min [facility] 08-18-2022 15:00-0400 Respiratory rate 16 /min [facility] 08-18-2022 15:00-0400 Systolic blood pressure 126 mm[Hg] [facility] 08-18-2022 12:59-0400 Heart rate 79 /min [facility] 08-18-2022 12:59-0400 SaO2% (BldA) [Mass fraction] 97 % [facility] 08-18-2022 12:58-0400 Diastolic blood pressure 81 mm[Hg] [facility] 08-18-2022 12:58-0400 Mean blood pressure 99 mm[Hg] [facility] 08-18-2022 12:58-0400 Systolic blood pressure 134 mm[Hg] [facility] 08-18-2022 12:58-0400 Body temperature 97.34 [degF] [facility] 08-18-2022 10:00-0400 Body temperature 97.7 [degF] [facility] 08-18-2022 10:00-0400 Diastolic blood pressure 76 mm[Hg] [facility] 08-18-2022 10:00-0400 Heart rate 70 /min [facility] 08-18-2022 10:00-0400 Respiratory rate 18 /min [facility] [facility] 08-18-2022 10:00-0400 SaO2% (BldA) [Mass fraction] 95 % [facility] 08-18-2022 10:00-0400 Systolic blood pressure 118 mm[Hg] [facility] 08-18-2022 08:00-0400 Body temperature 95.54 [degF] [facility] 08-17-2022 23:50-0400 Body temperature 98.06 [degF] [facility] 08-17-2022 23:50-0400 Mean blood pressure 97 mm[Hg] [facility] 08-17-2022 20:30-0400 Body temperature 98.42 [degF] [facility] 08-17-2022 20:30-0400 Mean blood pressure 105 mm[Hg] [facility] 08-17-2022 16:13-0400 Mean blood pressure 103 mm[Hg] [facility] 08-17-2022 14:00-0400 Mean blood pressure 102 mm[Hg] [facility] 08-17-2022 11:32-0400 Mean blood pressure 76 mm[Hg] [facility] 08-14-2022 21:12-0400 gluc 188 mg/dL [facility] 08-14-2022 18:14-0400 gluc 270 mg/dL [facility] 08-14-2022 13:43-0400 Body temperature 97.52 [degF] [facility] 08-14-2022 13:08-0400 Body temperature 97.7 [degF] [facility] 08-14-2022 13:08-0400 Respiratory rate 17 /min [facility] 08-14-2022 13:05-0400 Respiratory rate 15 /min [facility] 08-14-2022 12:50-0400 Respiratory rate 14 /min [facility] 08-13-2022 16:15-0400 Heart rate 82 /min [facility] 08-13-2022 09:16-0400 Heart rate 84 /min [facility] 08-06-2022 16:45-0400 Body height 177.8 cm Jeb Hernandez Other [facility] Other 08-06-2022 16:45-0400 Body mass index (BMI) [Ratio] 43.04 kg/m2 Jeb Hernandez Other [facility] Other 08-06-2022 16:45-0400 Body weight 136.08 kg Jeb Hernandez Other [facility] Other 08-06-2022 16:45-0400 Diastolic blood pressure 67 mm[Hg] Jeb Hernandez Other [facility] Other 08-06-2022 16:45-0400 SaO2% (BldA) [Mass fraction] 99 % Jeb Hernandez Other [facility] Other 08-06-2022 16:45-0400 Systolic blood pressure 116 mm[Hg] Jeb Hernandez Other [facility] Other 07-24-2022 14:15-0400 Body height 177.8 cm Ronaldo Arcos Other [facility] Other 07-24-2022 14:15-0400 Body mass index (BMI) [Ratio] 39.02 kg/m2 Ronaldo Arcos Other [facility] Other 07-24-2022 14:15-0400 Body temperature 97.5 [degF] Ronaldo Arcos Other [facility] Other 07-24-2022 14:15-0400 Body weight 123.38 kg Ronaldo Arcos Other [facility] Other 07-24-2022 14:15-0400 Diastolic blood pressure 65 mm[Hg] Ronaldo Arcos Other [facility] Other 07-24-2022 14:15-0400 Systolic blood pressure 123 mm[Hg] Ronaldo Arcos Other [facility] Other 07-01-2022 14:47-0500 Diastolic blood pressure 78 mm[Hg] Mark Vela [facility] 07-01-2022 14:47-0500 Heart rate 77 /min Mark Corbette [facility] 07-01-2022 14:47-0500 Mean blood pressure 92 mm[Hg] Mark Corbette [facility] 07-01-2022 14:47-0500 Respiratory rate 16 /min Mark Corbette [facility] 07-01-2022 14:47-0500 SaO2% (BldA) [Mass fraction] 97 % Mark Corbette [facility] 07-01-2022 14:47-0500 Systolic blood pressure 120 mm[Hg] Mark Corbette [facility] 07-01-2022 14:00-0500 Diastolic blood pressure 89 mm[Hg] Mark Mirian [facility] 07-01-2022 14:00-0500 Heart rate 79 /min Mark Mirian [facility] 07-01-2022 14:00-0500 Hourly Rounding Mark Mirian [facility] 07-01-2022 14:00-0500 Mean blood pressure 112 mm[Hg] Mark Mirian [facility] 07-01-2022 14:00-0500 Systolic blood pressure 157 mm[Hg] Mark Mirian [facility] 07-01-2022 13:00-0500 Diastolic blood pressure 92 mm[Hg] Mark Mirian [facility] 07-01-2022 13:00-0500 Heart rate 80 /min Mark Mirian [facility] 07-01-2022 13:00-0500 Hourly Rounding Mark Mirian [facility] 07-01-2022 13:00-0500 Mean blood pressure 124 mm[Hg] Mark Mirian [facility] 07-01-2022 13:00-0500 Systolic blood pressure 188 mm[Hg] Mark Mirian [facility] 07-01-2022 11:43-0500 Body temperature 98.24 [degF] Mark Mirian [facility] 07-01-2022 11:43-0500 Heart rate 81 /min Mark Mirian [facility] 06-30-2022 14:00-0500 Body height 177.8 cm Suraj Ptaiño [facility] Other 06-30-2022 14:00-0500 Body mass index (BMI) [Ratio] 42.73 kg/m2 Suraj Llanos Other [facility] Other 06-30-2022 14:00-0500 Body weight 135.08 kg Suraj Llanos Other [facility] Other 06-30-2022 14:00-0500 Diastolic blood pressure 70 mm[Hg] Suraj Llanos Other [facility] Other 06-30-2022 14:00-0500 SaO2% (BldA) [Mass fraction] 99 % Suraj Llanos Other [facility] Other 06-30-2022 14:00-0500 Systolic blood pressure 132 mm[Hg] Suraj Llanos Other [facility] Other 06-23-2022 15:45-0500 SaO2% (BldA) [Mass fraction] 98 % [facility] 13:01-0500 gluc 273 mg/dL [facility] 06-23-2022 13:00-0500 Hourly Rounding [facility] 06-23-2022 13:00-0500 Promise to Return [facility] 06-23-2022 12:42-0500 Hourly Rounding [facility] 06-23-2022 12:42-0500 Promise to Return [facility] 06-23-2022 11:21-0500 Hourly Rounding [facility] 06-23-2022 11:21-0500 Promise to Return [facility] 06-23-2022 11:00-0500 Blood Pressure Location [facility] 06-23-2022 11:00-0500 Body temperature 97.52 [degF] [facility] 06-23-2022 11:00-0500 Diastolic blood pressure 64 mm[Hg] [facility] 06-23-2022 11:00-0500 Heart rate 95 /min [facility] 06-23-2022 11:00-0500 Mean blood pressure 76 mm[Hg] [facility] 06-23-2022 11:00-0500 Respiratory rate 16 /min [facility] 06-23-2022 11:00-0500 SaO2% (BldA) [Mass fraction] 99 % [facility] 06-23-2022 11:00-0500 Systolic blood pressure 100 mm[Hg] [facility] 06-23-2022 09:18-0500 gluc 179 mg/dL [facility] 06-23-2022 09:13-0500 Diastolic blood pressure 85 mm[Hg] [facility] 06-23-2022 09:13-0500 Systolic blood pressure 139 mm[Hg] [facility] 06-23-2022 08:40-0500 SaO2% (BldA) [Mass fraction] 98 % [facility] 06-23-2022 08:39-0500 Heart rate 82 /min [facility] 06-23-2022 08:39-0500 Respiratory rate 18 /min [facility] 06-23-2022 07:00-0500 Body temperature 97.88 [degF] [facility] 06-23-2022 07:00-0500 Heart rate 80 /min [facility] 06-23-2022 07:00-0500 Mean blood pressure 103 mm[Hg] [facility] 06-23-2022 07:00-0500 Respiratory rate 14 /min [facility] 00:00-0500 [facility]-23-2022 00:00-0500 Body temperature 98.06 [degF] [facility] 06-23-2022 00:00-0500 Mean blood pressure 99 mm[Hg] [facility] 20:34-0500 Mean blood pressure 110 mm[Hg] [facility] 06-22-2022 20:34-0500 Body temperature 97.7 [degF] [facility]-22-2022 17:02-0500 Mean blood pressure 95 mm[Hg] [facility] 06-22-2022 17:02-0500 Body temperature 97.88 [degF] [facility] 06-22-2022 12:16-0500 Mean blood pressure 79 mm[Hg] [facility] 06-22-2022 12:15-0500 Body temperature 97.88 [degF] [facility]-20-2022 17:00-0500 Respiratory rate 16 /min [facility] 06-20-2022 16:24-0500 Body temperature 97.88 [degF] [facility]-20-2022 16:24-0500 Respiratory rate 12 /[facility] 16:10-0500 Respiratory rate 13 /min [facility] 06-20-2022 15:42-0500 Body temperature 97.52 [degF] [facility] 06-19-2022 11:41-0500 FIO2 40 % [facility] 06-18-2022 18:24-0500 Heart rate 71 /min [facility] 06-18-2022 12:54-0500 Heart rate 87 /min [facility] 06-06-2022 12:15-0500 Body height 177.8 cm Suraj Llanos Other [facility] Other 06-06-2022 12:15-0500 Body mass index (BMI) [Ratio] 42.61 kg/m2 Suraj Llanos Other [facility] Other 06-06-2022 12:15-0500 Body weight 134.72 kg Suraj Llanos Other [facility] Other 06-06-2022 12:15-0500 Diastolic blood pressure 64 mm[Hg] Suraj Llanos Other [facility] Other 06-06-2022 12:15-0500 SaO2% (BldA) [Mass fraction] 97 % Suraj Llanos Other [facility] Other 06-06-2022 12:15-0500 Systolic blood pressure 98 mm[Hg] Suraj Llanos Other [facility] Other 04-18-2022 08:36-0500 Diastolic blood pressure 87 mm[Hg] Hasan AMIR [facility] 04-18-2022 08:36-0500 Systolic blood pressure 128 mm[Hg] Hasan AMIR [facility] 04-18-2022 08:35-0500 Diastolic blood pressure 87 mm[Hg] Hasan AMIR [facility] 04-18-2022 08:35-0500 Systolic blood pressure 128 mm[Hg] Hasan AMIR [facility] 04-18-2022 08:33-0500 SaO2% (BldA) [Mass fraction] 96 % Hasan AMIR [facility] 04-18-2022 08:28-0500 Heart rate 88 /min Hasan AMIR [facility] 04-18-2022 08:28-0500 Respiratory rate 16 /min Hasan AMIR [facility] 04-18-2022 08:12-0500 Hourly Rounding Hasan AMIR [facility] 04-18-2022 08:12-0500 Promise to Return Hasan AMIR [facility] 04-18-2022 08:11-0500 Blood Pressure Location Hasan AMIR [facility] 04-18-2022 08:11-0500 Body temperature 97.88 [degF] [facility]an [facility] 04-18-2022 08:11-0500 BP/Pulse Patient Position Hasan AMIR [facility] 04-18-2022 08:11-0500 Diastolic blood pressure 87 mm[Hg] Hasan AMIR [facility] 04-18-2022 08:11-0500 Heart rate 89 /min Hasan AMIR [facility] 04-18-2022 08:11-0500 Mean blood pressure 101 mm[Hg] Hasan AMIR [facility] 04-18-2022 08:11-0500 Respiratory rate 16 /min Hasan AMIR [facility] 04-18-2022 08:11-0500 SaO2% (BldA) [Mass fraction] 98 % Hasan AMIR [facility] 04-18-2022 08:11-0500 Systolic blood pressure 128 mm[Hg] Hasan AMIR [facility] 04-18-2022 07:00-0500 Hourly Rounding Hasan AMIR [facility] 04-18-2022 07:00-0500 Promise to Return Hasan AMIR [facility] 04-18-2022 06:12-0500 Hourly Rounding Hasan AMIR [facility] 04-18-2022 06:12-0500 Promise to Return Hasan AMIR [facility] 04-17-2022 23:45-0500 Body temperature 99.68 [degF] Hasan AMIR [facility] 04-17-2022 23:45-0500 Heart rate 97 /min Hasan AMIR [facility] 04-17-2022 23:45-0500 Mean blood pressure 115 mm[Hg] Hasan AMIR [facility] 04-17-2022 23:45-0500 Respiratory rate 16 /min Hasan AMIR [facility] 04-17-2022 23:45-0500 SaO2% (BldA) [Mass fraction] 94 % Hasan AMIR [facility] 04-17-2022 19:33-0500 Body temperature 99.32 [degF] Hasan AMIR [facility] 04-17-2022 19:33-0500 Mean blood pressure 93 mm[Hg] Hasan AMIR [facility] 04-17-2022 17:25-0500 Blood Pressure Location Hasan AMIR [facility] 04-17-2022 17:25-0500 Body temperature 97.88 [degF] Hasan AMIR [facility] 04-17-2022 17:25-0500 BP/Pulse Patient Position Hasan AMIR [facility] 04-17-2022 17:25-0500 Mean blood pressure 89 mm[Hg] Hasan AMIR [facility] 04-17-2022 17:25-0500 Respiratory rate 18 /min Hasan AMIR [facility] 04-17-2022 12:45-0500 Blood Pressure Location Hasan AMIR [facility] 04-17-2022 12:45-0500 BP/Pulse Patient Position Hasan AMIR [facility] 04-17-2022 12:45-0500 Respiratory rate 18 /min Hasan AMIR [facility] 04-17-2022 08:28-0500 Respiratory rate 18 /min Hasan AMIR [facility] 04-16-2022 19:27-0500 Body temperature 98.42 [degF] Hasan AMIR [facility] 04-16-2022 18:30-0500 Body temperature 97.7 [degF] Hasan AMIR [facility] 04-16-2022 16:40-0500 Mean blood pressure 92 mm[Hg] Hasan AMIR [facility] 04-16-2022 11:56-0500 Body temperature 97.88 [degF] Hasan AMIR [facility] 04-16-2022 11:56-0500 Mean blood pressure 89 mm[Hg] Hasan AMIR [facility] 04-16-2022 07:38-0500 Body temperature 97.34 [degF] Hasan AMIR [facility] 04-15-2022 21:16-0500 gluc 252 mg/dL Hasan AMIR [facility] 04-15-2022 21:15-0500 gluc 252 mg/dL Hasan AMIR [facility] 04-15-2022 17:16-0500 gluc 323 mg/dL Hasan AMIR [facility] 04-14-2022 15:50-0500 Heart rate 69 /min Hasan AMIR [facility] 04-14-2022 15:00-0500 Heart rate 78 /min Hasan AMIR [facility] 04-14-2022 14:00-0500 Heart rate 75 /min Hasan AMIR [facility] 12-02-2021 21:32-0400 Hourly Rounding Henrirodriguez LOUISESLIN [facility] 12-02-2021 21:13-0400 Diastolic blood pressure 86 mm[Hg] Henri DEAN [facility] 12-02-2021 21:13-0400 Systolic blood pressure 153 mm[Hg] Henri DEAN [facility] 12-02-2021 21:00-0400 Hourly Rounding Henri DEAN [facility] 12-02-2021 21:00-0400 Promise to Return Henri DEAN [facility] 12-02-2021 20:00-0400 Promise to Return Henrirodriguez [facility] 12-02-2021 19:48-0400 Blood Pressure Location Henrirodriguez [facility] 12-02-2021 19:48-0400 Body temperature 97.88 [degF] Henrirodriguez [facility] 12-02-2021 19:48-0400 BP/Pulse Patient Position Henrirodriguez [facility] 12-02-2021 19:48-0400 Diastolic blood pressure 86 mm[Hg] Henri DEAN [facility] 12-02-2021 19:48-0400 Heart rate 95 /min Henrirodriguez [facility] 12-02-2021 19:48-0400 Mean blood pressure 108 mm[Hg] Henrirodriguez L[facility]ES[facility] 12-02-2021 19:48-0400 Respiratory rate 16 /min Henrirodriguez [facility] 12-02-2021 19:48-0400 SaO2% (BldA) [Mass fraction] 95 % Henrirodriguez [facility] 12-02-2021 19:48-0400 Systolic blood pressure 153 mm[Hg] Henri DEAN [facility] 12-02-2021 19:00-0400 Promise to Return Henrirodriguez [facility] 12-02-2021 18:56-0400 Body temperature 97.7 [degF] Henri DEAN [facility] 12-02-2021 18:56-0400 Diastolic blood pressure 84 mm[Hg] Henri DEAN [facility] 12-02-2021 18:56-0400 Heart rate 96 /min Henri DEAN [facility] 12-02-2021 18:56-0400 Mean blood pressure 105 mm[Hg] Henri DEAN [facility] 12-02-2021 18:56-0400 SaO2% (BldA) [Mass fraction] 96 % Henri DEAN [facility] 12-02-2021 18:56-0400 Systolic blood pressure 148 mm[Hg] Henri DEAN [facility] 12-02-2021 17:49-0400 gluc 116 mg/dL Henrirodriguez L[facility] 12-02-2021 12:00-0400 Body temperature 98.24 [degF] Henrirodriguez L[facility] 12-02-2021 12:00-0400 Heart rate 83 /min Henri DEAN [facility] 12-02-2021 12:00-0400 Respiratory rate 17 /min Henrirodriguez L[facility]ESLIN [facility] 12-02-2021 12:00-0400 SaO2% (BldA) [Mass fraction] 98 % Henri DEAN [facility] 12-02-2021 11:57-0400 gluc 188 mg/dL Henri DEAN [facility] 12-02-2021 11:27-0400 Mean blood pressure 96 mm[Hg] Henri DEAN [facility] 12-02-2021 10:00-0400 Mean blood pressure 92 mm[Hg] Henri DEAN [facility] 12-02-2021 09:17-0400 gluc 175 mg/dL Henri DEAN [facility] 12-01-2021 00:00-0400 FIO2 90 % Henri DEAN [facility] 11-30-2021 21:12-0400 Heart rate 96 /min Henri DEAN [facility] 11-30-2021 20:00-0400 Heart rate 82 /min Henri DEAN [facility] 11-30-2021 20:00-0400 Mean blood pressure 114 mm[Hg] Henri DEAN [facility] 11-30-2021 19:00-0400 Heart rate 86 /min Henri DEAN [facility] 11-30-2021 19:00-0400 Mean blood pressure 116 mm[Hg] Henri DEAN [facility] 11-30-2021 19:00-0400 Respiratory rate 20 /min Henri DEAN [facility] 11-30-2021 18:42-0400 Respiratory rate 18 /min Henri DEAN [facility] 06-26-2021 16:15-0500 Body height 180.34 cm Jeb Hernandez Other [facility] Other 06-26-2021 16:15-0500 Body mass index (BMI) [Ratio] 40.58 kg/m2 Jeb Hernandez Other [facility] Other 06-26-2021 16:15-0500 Body temperature 96 [degF] Jeb Hernandez Other [facility] Other 06-26-2021 16:15-0500 Body weight 132 kg Jeb Mary Other [facility] Other 06-26-2021 16:15-0500 Diastolic blood pressure 79 mm[Hg] Jeb Hernandez Other [facility] Other 06-26-2021 16:15-0500 SaO2% (BldA) [Mass fraction] 99 % Jeb Mary Other [facility] Other 06-26-2021 16:15-0500 Systolic blood pressure 129 mm[Hg] Jeb Hernandez Other [facility] Other Encounters Encounter Date Encounter Type Care Provider Facility Start: 04-27-2024 End: 04-27-2024 ambulatory [facility] Start: 04-27-2024 End: 04-27-2024 ambulatory [facility] Start: 04-22-2024 End: 04-22-2024 BamSailogyheet Homar Goodrich DPM Work Phone: [facility] Start: 04-22-2024 End: 04-22-2024 [employer]am[employer]udgeo [employer] Homar Goodrich DPM Work Phone: [facility] Start: 04-22-2024 End: 04-22-2024 Postop follow up visit related to original px Homar Goodrich DPM Work Phone: [facility] Comment on above: Type 2 diabetes maria elena itus with foot ulcer (CODE) (CMS/HCC) (Primary Dx); 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); Diabetic polyneuropathy associated with type 2 diabetes mellitus (CMS/HCC); Equinus contracture of right ankle; Equinus contracture of left ankle; History of amputation Start: 04-22-2024 End: 04-22-2024 ambulatory HOMAR GOODRICH Not Available Start: 04-13-2024 End: 04-13-2024 ambulatory ESTELLA MONREAL [facility] Start: 04-04-2024 End: 04-04-2024 Postop follow up visit related to original px Homar Goodrich DPM Work Phone: [facility] Comment on above: Type 2 diabetes maria elena itus with foot ulcer (CODE) (CMS/HCC) (Primary Dx); 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); Diabetic polyneuropathy associated with type 2 diabetes mellitus (CMS/HCC); Equinus contracture of right ankle; Equinus contracture of left ankle; History of amputation Start: 04-04-2024 End: 04-04-2024 ambulatory HOMAR GOODRICH Not Available Start: 04-04-2024 End: 04-04-2024 Bamboo flowsheet Homar Goodrich DPM Work Phone: [facility] Start: 04-04-2024 End: 04-04-2024 Bamboo flowsheet Homar Goodrich DPM Work Phone: [facility] Start: 03-24-2024 End: 03-24-2024 [facility] Start: 03-23-2024 End: 05-23-2024 Telephone encounter Mark Spain DO Work Phone: [facility] Start: 03-23-2024 End: 03-23-2024 ambulatory AB [facility] Start: 03-14-2024 End: 03-14-2024 Telephone encounter Laz Romo MD Work Phone: [facility] Comment on above: Medication Problem Start: 03-07-2024 End: 03-07-2024 Office outpatient new 30 minutes Homar Goodrich DPM Work Phone: [facility] Comment on above: Diabetic polyneuropa thy associated with type 2 diabetes mellitus (CMS/HCC) (Primary Dx); Type 2 diabetes mellitus with foot ulcer (CODE) (CMS/HCC); 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); Pressure ulcer of left heel, stage 2 ([facility]/HCC); 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 ([facility]); Equinus contracture of right ankle; Equinus contracture of left ankle; History of amputation Start: 03-07-2024 End: 03-07-2024 ambulatory HOMAR GOODRICH Not Available Start: 03-04-2024 End: 03-04-2024 ambulatory MD Suraj Llanos Work Phone: [facility] Work Phone: Start: 03-04-2024 End: 03-04-2024 Patient encounter procedure MD Suraj Llanos Work Phone: [facility] Work Phone: Start: 03-03-2024 Non-patient / Non-visit MD Sharmin Llanos Work Phone: [facility] Work Phone: Start: 03-02-2024 End: 03-02-2024 Patient encounter procedure MD Suraj Llanos Work Phone: [facility] Work Phone: Start: 03-02-2024 End: 03-02-2024 ambulatory MD Suraj Llanos Work Phone: [facility] Work Phone: Start: 02-23-2024 End: 02-23-2024 ambulatory [facility] Start: 02-09-2024 End: 02-09-2024 ambulatory [facility] Start: 02-01-2024 End: 02-01-2024 ambulatory AB [facility] Start: 01-27-2024 End: 01-27-2024 ambulatory [facility] Start: 01-19-2024 Non-patient / Non-visit MD Sharmin Llanos Work Phone: [facility] Work Phone: Start: 12-29-2023 End: 12-29-2023 ambulatory MD Suraj Llanos Work Phone: [facility] Work Phone: Start: 12-29-2023 End: 12-29-2023 Patient encounter procedure MD Suraj Llanos Work Phone: [facility] Work Phone: Start: 12-28-2023 End: 12-28-2023 Patient encounter procedure MD Suraj Llanos Work Phone: [facility] Work Phone: Start: 12-28-2023 End: 12-28-2023 ambulatory MD Suraj Llanos Work Phone: [facility] Work Phone: Start: 12-22-2023 End: 12-22-2023 ambulatory [facility] Start: 12-14-2023 End: 12-14-2023 ambulatory AB [facility] Start: 11-12-2023 Non-patient / Non-visit MD Sharmin Llanos Work Phone: [facility] Work Phone: Start: 11-11-2023 End: 11-11-2023 ambulatory MD Suraj Llanos Work Phone: [facility] Work Phone: Start: 11-11-2023 End: 11-11-2023 Departed Referred MD Suraj Llanos Work Phone: [facility] Start: 11-11-2023 Non-patient / Non-visit MD Sharmin Llanos Work Phone: [facility] Work Phone: Start: 11-10-2023 Non-patient / Non-visit MD Sharmin Llanos Work Phone: [facility] Work Phone: Start: 10-20-2023 End: 10-20-2023 ambulatory [facility] Start: 10-20-2023 End: 10-20-2023 ambulatory MARGARITA [facility] Start: 10-14-2023 End: 10-14-2023 ambulatory [facility] Work Phone: Start: 10-14-2023 End: 10-14-2023 Patient encounter procedure [facility] Work Phone: Start: 10-12-2023 End: 10-12-2023 ambulatory EHAB [facility] Start: 09-29-2023 End: 09-29-2023 ambulatory [facility] Start: 09-09-2023 End: 09-09-2023 Patient encounter procedure [facility] Work Phone: Start: 09-07-2023 Non-patient / Non-visit [facility] Work Phone: Start: 09-02-2023 Evaluation and management of inpatient BELLAMY MANI [facility] Start: 08-31-2023 Evaluation and management of inpatient [facility] Start: 08-28-2023 Evaluation and management of inpatient [facility] Start: 08-28-2023 Evaluation and management of inpatient [facility] Start: 08-27-2023 Evaluation and management of inpatient [facility] Start: 08-27-2023 Evaluation and management of inpatient [facility] Start: 08-27-2023 Evaluation and management of inpatient [facility] Start: 08-26-2023 End: 09-02-2023 Evaluation and management of inpatient [facility] Start: 08-26-2023 End: 08-26-2023 ambulatory [facility] Start: 08-13-2023 End: 08-13-2023 ambulatory MD Suraj Llanos Work Phone: [facility] Work Phone: Start: 08-13-2023 End: 08-13-2023 Patient encounter procedure MD Suraj Llanos Work Phone: [facility] Work Phone: Start: 08-05-2023 Non-patient / Non-visit MD Shramin Llanos Work Phone: [facility] Work Phone: Start: 08-05-2023 End: 08-05-2023 ambulatory [facility] Start: 07-30-2023 End: 07-30-2023 ambulatory [facility] Start: 07-13-2023 Non-patient / Non-visit MD Sharmin Llanos Work Phone: [facility] Work Phone: Start: 07-09-2023 End: 07-09-2023 ambulatory [facility] Start: 07-02-2023 End: 07-02-2023 ambulatory [facility] Start: 06-24-2023 End: 06-24-2023 ambulatory NATHAN DORMAN [facility] Start: 06-16-2023 End: 06-16-2023 ambulatory Suraj Llanos Other [facility] Other Start: 06-16-2023 Telephone encounter Suraj Llanos [facility] Start: 06-16-2023 Evaluation and management of inpatient EMORY BURNS [facility] Start: 06-15-2023 Evaluation and management of inpatient [facility] Start: 06-15-2023 End: 06-15-2023 ambulatory Suraj Llanos Other [facility] Other Start: 06-15-2023 Telephone encounter Suraj Llanos [facility] Start: 06-15-2023 Evaluation and management of inpatient [facility] Start: 06-13-2023 Evaluation and management of inpatient [facility] Start: 06-12-2023 Evaluation and management of inpatient [facility] Start: 06-12-2023 End: 06-17-2023 Evaluation and management of inpatient SCOTTCHLOÉ CORNEJO [facility] Start: 06-12-2023 End: 06-12-2023 ambulatory Suraj Llanos Other [facility] Other Start: 06-12-2023 Office outpatient vi sit 25 minutes Suraj Llanos [facility] Start: 06-12-2023 End: 06-12-2023 Patient encounter procedure MD Suraj Llanos Work Phone: [facility] Start: 06-10-2023 End: 06-11-2023 ambulatory Santos R Argelia Facility:[facility] Start: 06-10-2023 End: 06-10-2023 Patient encounter procedure Santos Epperson [facility] Start: 06-09-2023 End: 06-09-2023 Patient encounter procedure [facility] [place] Work Phone: Start: 06-09-2023 End: 06-09-2023 ambulatory NON STAFF [facility] Other Start: 06-09-2023 Telephone encounter Suraj Shalonda [facility] Start: 06-08-2023 End: 06-08-2023 ambulatory AB [facility] Start: 05-21-2023 End: 05-21-2023 ambulatory Suraj Shalonda Other [facility] Other Start: 05-21-2023 Telephone encounter Suraj Shalonda [facility] Start: 05-20-2023 End: 05-21-2023 ambulatory Santos R Dolce Facility:[facility] Start: 05-20-2023 End: 05-20-2023 Patient encounter procedure Santos R Dolce [facility] Start: 05-12-2023 End: 05-12-2023 ambulatory Suraj Shalonda Other [facility] Other Start: 05-12-2023 Office outpatient vi sit 25 minutes Suraj Llanos [facility] Start: 05-12-2023 End: 05-12-2023 Patient encounter procedure [facility] Work Phone: Start: 05-08-2023 End: 05-08-2023 ambulatory Suraj Llanos Other [facility] Other Start: 05-08-2023 Telephone encounter Suraj Shalonda [facility] Start: 05-06-2023 End: 05-07-2023 ambulatory Santos R Dolce Facility:[facility] Start: 04-28-2023 End: 04-28-2023 ambulatory Suraj Shalonda Other [facility] Other Start: 04-28-2023 Telephone encounter Suraj Llanos [facility] Start: 04-23-2023 End: 04-23-2023 Patient encounter procedure [facility] Start: 04-23-2023 End: 04-23-2023 ambulatory NON STAFF Facility:[facility] Start: 04-22-2023 End: 04-22-2023 ambulatory Suraj Llanos Other [facility] Other Start: 04-22-2023 Telephone encounter Suraj Llanos [facility] Start: 04-08-2023 End: 04-09-2023 ambulatory Santos Nancy Epperson Facility:[facility] Start: 04-08-2023 End: 04-08-2023 Patient encounter procedure Santos R Dolce [facility] Start: 04-01-2023 End: 04-01-2023 ambulatory Suraj Llanos Other [facility] Other Start: 04-01-2023 Telephone encounter Suraj Llanos [facility] Start: 03-25-2023 End: 03-26-2023 ambulatory Santos R Dolce Facility:[facility] Start: 03-25-2023 End: 03-25-2023 Patient encounter procedure Santos R Dolce [facility] Start: 03-11-2023 End: 03-12-2023 ambulatory Santos R Dolce Facility:[facility] Start: 03-03-2023 End: 03-04-2023 ambulatory Ramiro Epperson Facility:[facility] Start: 03-03-2023 End: 03-03-2023 Patient encounter procedure Ramiro Epperson [facility] Start: 03-02-2023 End: 03-02-2023 ambulatory Ronaldo Arcos Other [facility] Other Start: 03-02-2023 Telephone encounter Ronaldo Arcos [facility] Start: 02-26-2023 End: 02-26-2023 Emergency department patient visit Derrick Benson Facility:[facility] Start: 02-26-2023 End: 02-26-2023 Emergency department patient visit Derrick Benson [facility] Start: 02-13-2023 End: 02-13-2023 ambulatory Suraj Llanos Other [facility] Other Start: 02-13-2023 Initial nursing faci lity care/day 35 minutes Suraj Llanos [facility] Start: 02-13-2023 Telephone encounter Suraj Llanos [facility] Start: 02-12-2023 End: 02-12-2023 ambulatory Suraj Llanos Other [facility] Other Start: 02-12-2023 Telephone encounter Suraj Llanos [facility] Start: 02-05-2023 End: 02-06-2023 ambulatory Santos Epperson Facility:[facility] Start: 02-05-2023 End: 02-11-2023 Evaluation and management of inpatient Javon Edwards Facility:[facility] Start: 02-05-2023 End: 02-05-2023 Lab Drop off Santos Epperson [facility] Start: 02-04-2023 End: 02-18-2023 Pre-admission assessment Ramiro Shira Epperson [facility] Start: 01-27-2023 End: 01-27-2023 ambulatory Suraj Llanos Other [facility]vive Other Start: 01-27-2023 Office outpatient vi sit 15 minutes Suraj Llanos [facility] Start: 01-10-2023 End: 01-15-2023 Evaluation and management of inpatient Javon Edwards Facility:[facility] Start: 01-10-2023 End: 01-15-2023 Evaluation and management of inpatient Octavio Walter [facility] Start: 12-09-2022 End: 12-09-2022 ambulatory Suraj Llanos Other [facility]vive Other Start: 12-09-2022 Telephone encounter Suraj Llanos [facility] Start: 11-26-2022 End: 11-26-2022 ambulatory Suraj Shalonda Other [facility] Other Start: 11-26-2022 Office outpatient vi sit 15 minutes Suraj Shalonda [facility] Start: 11-19-2022 End: 11-19-2022 ambulatory Suraj Llanos Other [facility] Other Start: 11-19-2022 Telephone encounter Suraj Shalonda [facility] Start: 11-07-2022 End: 11-07-2022 ambulatory Suraj Llanos Other [facility] Other Start: 11-07-2022 Office outpatient vi sit 15 minutes Suraj Shalonda [facility] Start: 10-22-2022 End: 10-23-2022 ambulatory Santos R Dolce Facility:[facility] Start: 10-22-2022 End: 10-22-2022 Patient encounter procedure Santos R Dolce [facility] Start: 10-16-2022 End: 10-16-2022 ambulatory Suraj Shalonda Other [facility] Other Start: 10-16-2022 Telephone encounter Suraj Llanos [facility] Start: 10-14-2022 End: 10-14-2022 ambulatory Suraj Llanos Other [facility] Other Start: 10-14-2022 Telephone encounter Suraj Shalonda [facility] Start: 10-10-2022 End: 10-11-2022 ambulatory SURAJ LLANOS Facility:[facility] Start: 10-10-2022 End: 10-10-2022 Patient encounter procedure SURAJ SHALONDA [facility] Start: 10-08-2022 End: 10-09-2022 ambulatory Santos R Dolce Facility:[facility] Start: 10-08-2022 End: 10-08-2022 Patient encounter procedure Santos R Dolce [facility] Start: 10-07-2022 End: 10-07-2022 ambulatory Suraj Llanos Other ipvive Other Start: 10-07-2022 Telephone encounter Suraj Llanos [facility] Start: 09-24-2022 End: 09-25-2022 ambulatory Santos R Dolce Facility:[facility] Start: 09-03-2022 End: 09-04-2022 ambulatory Santos R Dolce Facility:[facility] Start: 09-03-2022 End: 09-03-2022 Patient encounter procedure Santos R Dolce [facility] Start: 09-02-2022 End: 09-03-2022 ambulatory Teddy HDZ Facility:[facility] Start: 09-02-2022 End: 09-02-2022 Patient encounter procedure Teddy HDZ [facility] Start: 08-27-2022 End: 08-28-2022 ambulatory Santos R Dolce Facility:[facility] Start: 08-27-2022 End: 08-27-2022 Patient encounter procedure Santos R Dolce [facility] Start: 08-13-2022 End: 08-18-2022 Evaluation and management of inpatient Alaa ALAHMAD Facility:[facility] Start: 08-13-2022 End: 08-14-2022 ambulatory Santos R Dolce Facility:[facility] Start: 08-13-2022 End: 08-18-2022 Evaluation and management of inpatient Alaa ALAHMAD [facility] Start: 08-13-2022 End: 08-13-2022 Patient encounter procedure Santos R Dolce [facility] Start: 08-08-2022 End: 08-08-2022 ambulatory Suraj Llanos Other ipvive Other Start: 08-08-2022 Telephone encounter Suraj Llanos [facility] [employer] Start: 08-07-2022 End: 08-07-2022 ambulatory Ronaldo Josselyn Other [facility] [employer] Other Start: 08-07-2022 Telephone encounter Ronaldo MACIAS [facility] Infect[facility] Start: 08-06-2022 Office outpatient vi sit 10 minutes Jeb Hernandez [facility] Start: 08-06-2022 End: 08-07-2022 ambulatory Santos Epperson [facility] [employer] Other Start: 08-06-2022 End: 08-06-2022 Patient encounter procedure Santos Epperson [facility] Start: 08-04-2022 Telephone encounter Ronaldo MACIAS [facility] Start: 08-04-2022 End: 08-04-2022 ambulatory MD Suraj Llanos Work Phone: [facility] Work Phone: Start: 08-04-2022 End: 08-04-2022 Patient encounter procedure MD [facility] Work Phone: Start: 07-31-2022 End: 08-01-2022 ambulatory Mark Zepeda Facility:[facility] Start: 07-31-2022 End: 07-31-2022 Patient encounter procedure Mark Zepeda [facility] Start: 07-31-2022 End: 07-31-2022 ambulatory MD Suraj Llanos Work Phone: [facility] Work Phone: Start: 07-31-2022 End: 07-31-2022 Departed Referred MD Suraj Llanos Work Phone: [facility] Work Phone: Start: 07-30-2022 End: 07-30-2022 ambulatory MD Suraj Llanos Work Phone: [facility] Work Phone: Start: 07-30-2022 End: 07-30-2022 Discharged Recurring MD Suraj Llanos Work Phone: [facility] Work Phone: Start: 07-28-2022 End: 07-28-2022 ambulatory Suraj Llanos Other ipvive Other Start: 07-28-2022 Telephone encounter Suraj Llanos [facility] Start: 07-25-2022 Telephone encounter Suraj Llanos [facility] [employer] Start: 07-25-2022 End: 07-25-2022 ambulatory MD Suraj Llanos Work Phone: [facility] Work Phone: Start: 07-25-2022 End: 07-25-2022 Patient encounter procedure MD Suraj Llanos Work Phone: [facility] Work Phone: Start: 07-24-2022 Office outpatient vi sit 25 minutes Ronaldo Arcos [facility] Infectious Disease Start: 07-24-2022 End: 07-25-2022 ambulatory Mark CrowleyTio Markstephy [facility] [employer] Other Start: 07-23-2022 End: 07-23-2022 ambulatory MD Suraj Llanos Work Phone: [facility] Work Phone: Start: 07-23-2022 End: 07-23-2022 Patient encounter procedure MD Suraj Llanos Work Phone: [facility] Work Phone: Start: 07-18-2022 End: 07-18-2022 ambulatory MD Suraj Llanos Work Phone: [facility] Work Phone: Start: 07-18-2022 End: 07-18-2022 Patient encounter procedure MD Suraj Llanos Work Phone: [facility] Work Phone: Start: 07-16-2022 End: 07-17-2022 ambulatory Santos Nancy Epperson Facility:[facility] Start: 07-14-2022 End: 07-14-2022 Emergency department patient visit Mark Mirian Facility:[facility]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 by mouth in the morning and 800 mg in the evening and 800 mg before bedtime., Disp: , Rfl: insulin regular (HumuLIN R U-500) 500 UNIT/ML CONCENTRATED injection, .COMPLEX, Disp: , Rfl: isosorbide mononitrate ER (Imdur) 30 MG 24 hr tablet, 1 (one) time each day at the same time., Disp: , Rfl: Lantus SoloStar 100 UNIT/ML pen, INJECT 26 unit SUBCUTANEOUSLY EVERY DAY (Patient not taking: Reported on 03/07/2024), Disp: , Rfl: linezolid (Zyvox) 600 MG tablet, Take 600 mg by mouth every 12 (twelve) hours., Disp: , Rfl: losartan (Cozaar) 100 MG tablet, Take 1 tablet by mouth Daily, Disp: , Rfl: metFORMIN (Glucophage) 500 MG tablet, 1 tablet, Disp: , Rfl: methotrexate 2.5 MG tablet, Take 7 tablets by mouth 1 (one) time per week., Disp: , Rfl: midodrine (Proamatine) 5 MG tablet, TAKE ONE TABLET BY MOUTH THREE TIMES A DAY ( IN THE MORNING , AT NOON, AND AT BEDTIME ), Disp: , Rfl: moxifloxacin (Vigamox) 0.5 % ophthalmic solution, Administer 1 drop into both eyes in the morning and 1 drop at noon and 1 drop in the evening and 1 drop before bedtime., Disp: , Rfl: nitroglycerin (Nitrostat) 0.4 MG SL tablet, Place 1 tablet under the tongue every 5 (five) minutes if needed FOR CHEST PAIN FOR 3 DOSES ONLY. IF NO RELIEF, CALL 911, Disp: , Rfl: ondansetron ODT (Zofran-ODT) 8 MG disintegrating tablet, Take 1 tablet by mouth every 12 (twelve) hours if needed for vomiting or nausea, Disp: , Rfl: potassium chloride CR (Klor-Con M20) 20 MEQ ER tablet, TAKE ONE TABLET BY MOUTH ONCE TO TWICE DAILY DIRECTED, Disp: , Rfl: potassium chloride CR (Klor-Con) 10 MEQ ER tablet, every 12 (twelve) hours., Disp: , Rfl: Quviviq 25 MG tablet, TAKE ONE TABLET BY MOUTH ONCE DAILY 30 MINUTES BEFORE BEDTIME, Disp: , Rfl: semaglutide (Ozempic, 1 MG/DOSE,) 2 MG/1.5ML solution pen-injector, Inject 1 mg under the skin, Disp: , Rfl: spironolactone (Aldactone) 50 MG tablet, Take 50 mg by mouth in the morning., Disp: , Rfl: tamsulosin (Flomax) 0.4 MG 24 hr capsule, Take 0.4 mg by mouth in the morning and 0.4 mg before bedtime., Disp: , Rfl: terazosin (Hytrin) 5 MG capsule, Take 1 capsule by mouth at bedtime, Disp: , Rfl: tiotropium (Spiriva) 18 MCG inhalation capsule, Place 1 capsule into inhaler and inhale in the morning., Disp: , Rfl: valACYclovir (Valtrex) 1 g tablet, Take 1,000 mg by mouth in the morning and 1,000 mg in the evening., Disp: , Rfl: Xtampza ER 18 MG 12 hr abuse-deterrent capsule, Take 18 mg by mouth in the morning and 18 mg before bedtime., Disp: , Rfl: Allergies Sulfamethoxazole-trimethoprim, Metoclopramide, Peg [id number], Promethazine, and Sulfa antibiotics Past Surgical History Past Surgical History: Procedure Laterality Date COLON SURGERY Removal of tumor from intestine CT ANGIOGRAM HEART CORONARY 06/03/2017 CT ANGIOGRAM TAVR GASTRIC BYPASS GLAUCOMA SURGERY MR ANGIOGRAM HEAD WO IV CONTRAST 11/23/2016 MR ANGIOGRAM HEAD WO IV CONTRAST NERVE SURGERY TOE AMPUTATION Right 2021 Left great toe amputation 2021/Left 2nd toe partial toe TOE AMPUTATION Right 2022 Toes 1-5 amputation. Family History Family History Problem Relation Name Age of Onset Hypertension Mother Diabetes Mother Stroke Mother Stroke Father Diabetes Father Hypertension Father Objective Physical Exam Constitutional: General: He is not in acute distress. Appearance: He is obese. Comments: Presents to clinic ambulating with cane assistance. He is in socks only and not wearing shoes. Cardiovascular: Comments: DP pulse: 1/4 PT pulse: 1/4 Skin temperature is warm to cool Edema: +2 pitting bilaterally. Multiple telangiectasias and varicosities bilaterally. Pulmonary: Effort: Pulmonary effort is normal. No respiratory distress. Musculoskeletal: Cervical back: Neck supple. No rigidity. Comments: Pedal deformities: Right foot: Transmetatarsal amputation with ulceration at the distal stump. Currently being managed by Dr. Diaz. Left foot: Partial hallux and 2nd toe amputation. Mild hammertoe contractures of remaining toes. Preulcerative lesion on the distal tuft of the 3rd toe. Skin: Capillary Refill: Capillary refill takes 2 to 3 seconds. Comments: Ulceration of the right TMA stump. Preulcerative lesion of the distal aspect of the left 3rd toe. Otherwise no ulcers. Skin is diffusely thin, atrophic appearing. No hair growth noted. Neurological: Mental Status: He is alert. Comments: Protective sensation intact at 4/9 pedal sites left foot, 0/5, right foot. Psychiatric: Mood and Affect: Mood normal. Behavior: Behavior normal. Assessment/Plan ICD-10-CM 1. Type 2 diabetes mellitus with foot ulcer (CODE) ([facility]) E11.621 2. Non-pressure chronic ulcer of other part of left foot with fat layer exposed ([facility]) L97.522 3. Diabetic polyneuropathy associated with type 2 diabetes mellitus ([facility]) E11.42 4. Equinus contracture of right ankle M24.571 5. Equinus contracture of left ankle M24.572 6. History of amputation Z89.9 Patient trial the diabetic shoes but they felt too tight on the right foot. We will order a size bigger and have him return to clinic for diabetic shoe dispensing. This note was created with the assistance of a speech recognition program. While intending to generate a timely document that accurately reflects the content of the visit, no guarantee can be provided that every grammatical or spelling mistake has been or will be identified or corrected. Thank you for your understanding. Homar Goodrich DPM documented in this encounter [facility] 04-13-2024 Note [facility] 04-04-2024 History of Present illness Narrative Images from the original note were not included. Subjective Patient ID: Matt Saldaña is a 63 y.o. male who presents for Shoe Measure (Matt Saldaña is a 63 y.o. male who presents for Shoe Measure. Patient will be scanned for Right foot toe filler. [id number] Llanos 03/04/2024 SS12).). HPI Established patient returns to clinic for diabetic shoe measuring. He is a high-risk patient with transmetatarsal amputation of the right side with stump ulceration. Currently he does not wear shoes at all. Review of Systems Constitutional: Positive for activity change. Negative for appetite change. Respiratory: Negative for chest tightness and shortness of breath. Cardiovascular: Positive for leg swelling. Negative for chest pain. Musculoskeletal: Positive for arthralgias and gait problem. Skin: Positive for wound. Negative for color change. Neurological: Positive for weakness and numbness. Psychiatric/Behavioral: Negative for agitation and behavioral problems. Hematological: Does not bruise/bleed easily. Endocrine: Negative for cold intolerance and heat intolerance. Allergic/Immunologic: Negative for immunocompromised state. Past medical History Past Medical History: Diagnosis Date Acute on chronic combined systolic and diastolic congestive heart failure ([facility]) 11/10/2022 Last Assessment & Plan: [facility] III Continue GDMT- ASA, bumex, entresto coreg, farxiga, and aldatone Diuretic therapy- bumex 3 mg po bid and will send order for bumex 2 mg IV q Thu-Thu and Thursday with weekly BMP q Thu. 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 ([facility]) 12/19/2015 Bipolar disorder ([facility]) 09/10/2022 Carotid artery occlusion 06/22/2013 CHF (congestive heart failure) ([facility]) Chronic ulcer of great toe of left foot with fat layer exposed ([facility]) COPD without exacerbation ([facility]) 02/05/2023 Diabetes ([facility]) Diabetic foot ulcer ([facility]) DVT (deep venous thrombosis) ([facility]) 09/10/2022 GERD (gastroesophageal reflux disease) Morbid obesity ([facility]) Pyogenic granuloma of skin Stroke (cerebrum) ([facility]) Medications Current Outpatient Medications: Aspirin Low Dose 81 MG EC tablet, TAKE 1 TABLET (81 MG) BY MOUTH IN THE MORNING., Disp: , Rfl: atorvastatin (Lipitor) 80 MG tablet, 1 (one) time each day at the same time., Disp: , Rfl: bumetanide (Bumex) 1 MG tablet, Take 3 mg by mouth., Disp: , Rfl: busPIRone (Buspar) 10 MG tablet, TAKE ONE TABLET BY MOUTH TWICE A DAY 28 (Patient not taking: Reported on 03/07/2024), Disp: , Rfl: carvedilol (Coreg) 3.125 MG tablet, every 12 (twelve) hours. (Patient taking differently: 6.125 mg every 12 (twelve) hours), Disp: , Rfl: Continuous Glucose Sensor (FreeStyle Wilbert 2 Sensor) [facility], Inject 1 kit under the skin every 14 (fourteen) days, Disp: 6 each, Rfl: 1 diclofenac sodium 1 % gel, APPLY TWO TO FOUR TIMES GRAMS TOPICALLY TO AFFECTED AREA EVERY 4-6 HOURS, Disp: , Rfl: diphenoxylate-atropine (Lomotil) 2.5-0.025 MG tablet, 1 tablet, Disp: , Rfl: divalproex (Depakote) 125 MG EC tablet, TAKE ONE TABLET BY MOUTH TWICE A DAY WITH 500MG TABLETS, Disp: , Rfl: divalproex (Depakote) 500 MG EC tablet, TAKE ONE TABLET BY MOUTH TWICE A DAY WITH 125MG TO TOTAL 625MG, Disp: , Rfl: Eliquis 5 MG tablet, TAKE ONE TABLET BY MOUTH TWICE A DAY ( IN THE MORNING AND AT BEDTIME ), Disp: , Rfl: Entresto 24-26 MG tablet, every 12 (twelve) hours., Disp: , Rfl: Farxiga 10 MG, 1 tablet, Disp: , Rfl: gabapentin (Neurontin) 800 MG tablet, Take 800 mg by mouth in the morning and 800 mg in the evening and 800 mg before bedtime., Disp: , Rfl: isosorbide mononitrate ER (Imdur) 30 MG 24 hr tablet, 1 (one) time each day at the same time., Disp: , Rfl: Lantus SoloStar 100 UNIT/ML pen, INJECT 26 unit SUBCUTANEOUSLY EVERY DAY (Patient not taking: Reported on 03/07/2024), Disp: , Rfl: linezolid (Zyvox) 600 MG tablet, Take 600 mg by mouth every 12 (twelve) hours., Disp: , Rfl: metFORMIN (Glucophage) 500 MG tablet, 1 tablet, Disp: , Rfl: midodrine (Proamatine) 5 MG tablet, TAKE ONE TABLET BY MOUTH THREE TIMES A DAY ( IN THE MORNING , AT NOON, AND AT BEDTIME ), Disp: , Rfl: ondansetron (Zofran) 8 MG tablet, Take by mouth, Disp: , Rfl: potassium chloride CR (Klor-Con M20) 20 MEQ ER tablet, TAKE ONE TABLET BY MOUTH ONCE TO TWICE DAILY DIRECTED, Disp: , Rfl: potassium chloride CR (Klor-Con) 10 MEQ ER tablet, every 12 (twelve) hours., Disp: , Rfl: Quviviq 25 MG tablet, TAKE ONE TABLET BY MOUTH ONCE DAILY 30 MINUTES BEFORE BEDTIME, Disp: , Rfl: semaglutide (Ozempic, 1 MG/DOSE,) 2 MG/1.5ML solution pen-injector, Inject 1 mg under the skin, Disp: , Rfl: spironolactone (Aldactone) 50 MG tablet, Take 50 mg by mouth in the morning., Disp: , Rfl: tamsulosin (Flomax) 0.4 MG 24 hr capsule, Take 0.4 mg by mouth in the morning and 0.4 mg before bedtime., Disp: , Rfl: Allergies Sulfamethoxazole-trimethoprim, Metoclopramide, Peg [id number]-nacl-nasulf, Promethazine, and Sulfa antibiotics Past Surgical History Past Surgical History: Procedure Laterality Date CT ANGIOGRAM HEART CORONARY 06/03/2017 CT ANGIOGRAM TAVR GASTRIC BYPASS GLAUCOMA SURGERY MR ANGIOGRAM HEAD WO IV CONTRAST 11/23/2016 MR ANGIOGRAM HEAD WO IV CONTRAST NERVE SURGERY TOE AMPUTATION Right 2021 Left great toe amputation 2021/Left 2nd toe partial toe TOE AMPUTATION Right 2022 Toes 1-5 amputation. Family History No family history on file. Objective Physical Exam Constitutional: General: He is not in acute distress. Appearance: He is obese. Comments: Presents to clinic ambulating with cane assistance. He is in socks only and not wearing shoes. Cardiovascular: Comments: DP pulse: 1/4 PT pulse: 1/4 Skin temperature is warm to cool Edema: +2 pitting bilaterally. Multiple telangiectasias and varicosities bilaterally. Pulmonary: Effort: Pulmonary effort is normal. No respiratory distress. Musculoskeletal: Cervical back: Neck supple. No rigidity. Comments: Pedal deformities: Right foot: Transmetatarsal amputation with ulceration at the distal stump. Currently being managed by Dr. Diaz. Left foot: Partial hallux and 2nd toe amputation. Mild hammertoe contractures of remaining toes. Preulcerative lesion on the distal tuft of the 3rd toe. Skin: Capillary Refill: Capillary refill takes 2 to 3 seconds. Comments: Ulceration of the right TMA stump. Preulcerative lesion of the distal aspect of the left 3rd toe. Otherwise no ulcers. Skin is diffusely thin, atrophic appearing. No hair growth noted. Neurological: Mental Status: He is alert. Comments: Protective sensation intact at 4/9 pedal sites left foot, 0/5, right foot. Psychiatric: Mood and Affect: Mood normal. Behavior: Behavior normal. Assessment/Plan ICD-10-CM 1. Type 2 diabetes mellitus with foot ulcer (CODE) ([facility]) E11.621 2. Non-pressure chronic ulcer of other part of left foot with fat layer exposed ([facility]) L97.522 3. Diabetic polyneuropathy associated with type 2 diabetes mellitus ([facility]) E11.42 4. Equinus contracture of right ankle M24.571 5. Equinus contracture of left ankle M24.572 6. History of amputation Z89.9 Patient was measured for diabetic shoes. Brennick device was utilized and patient stood in a weightbearing position for accurate measurement. Measurements were recorded appropriately. Patient selected desired shoe style in color which was marked down on the appropriate paperwork. Diabetic shoes are required due to history of neuropathy, pre-ulcerative lesions as well as pedal deformities. The shoes are designed to reduce shear pressure across the foot and prevent pedal ulceration. Follow-up for shoe fitting and dispensing. Three-dimensional scanner was utilized to take impressions of right transmetatarsal amputation some utilizing three-dimensional scanner with foot held at 90 degrees to the leg. After obtaining the scan it was assessed for accuracy and completeness and noted to be excellent. Tracing of the right transmetatarsal amputation stump was also obtained today. Appropriate order form was filled out and the order was sent to [facility]. Custom toe filler necessary on the right foot due to history of transmetatarsal amputation stump. This will help prevent pistoning in his shoe to reduce shear forces and hopefully future ulcerations. This note was created with the assistance of a speech recognition program. While intending to generate a timely document that accurately reflects the content of the visit, no guarantee can be provided that every grammatical or spelling mistake has been or will be identified or corrected. Thank you for your understanding. Homar Goodrich DPM documented in this encounter [facility] 03-23-2024 Miscellaneous Notes Is looking for new pcp, he said his current one sent a referral for you. Would like to see you, will you accept documented in this encounter [facility] 03-23-2024 Telephone encounter Note Is looking for new pcp, he said his current one sent a referral for you. Would like to see you, will you accept [facility] 03-23-2024 Note [facility] 03-14-2024 Telephone encounter Note [employer] needs last note faxed to be signed by doctor physically on each page and resent please. Thank you! [facility] 03-14-2024 Miscellaneous Notes [employer] needs last note faxed to be signed by doctor physically on each page and resent please. Thank you! documented in this encounter [facility] 03-07-2024 History of Present illness Narrative Images from the original note were not included. Subjective Patient ID: Matt Saldaña is a 63 y.o. male who presents for DM check (Matt Saldaña 63yo New patient presents with his spouse Jin, with referral from Dr. Diaz regarding, Diabetic shoes with inserts and fillers. Patient has a history Right TMA and Left 1st toe amp., and 2nd toe partial amputation. Patient is currently daily dressings right foot stump of medihoney and band aid. Patient is not wearing shoes today, presents wearing socks. Patient has history of wounds opening back up when wearing shoes. [id number] Llanos 03/04/2024 SS12). HPI This is a new patient who was referred to me for concern of diabetic shoes and custom toe filler. Patient has a history of amputations bilateral feet with the transmetatarsal amputation on the right foot as a result of osteomyelitis. Patient continues to have breakdown of his stump on the right foot. He was referred to me for diabetic shoes and orthotic with toe filler especially on the right side to try and reduce the risk of ulceration and amputation going forward. Review of Systems Constitutional: Positive for activity change. Negative for appetite change. Respiratory: Negative for chest tightness and shortness of breath. Cardiovascular: Positive for leg swelling. Negative for chest pain. Musculoskeletal: Positive for arthralgias and gait problem. Skin: Positive for wound. Negative for color change. Neurological: Positive for weakness and numbness. Psychiatric/Behavioral: Negative for agitation and behavioral problems. Hematological: Does not bruise/bleed easily. Endocrine: Negative for cold intolerance and heat intolerance. Allergic/Immunologic: Negative for immunocompromised state. Past medical History Past Medical History: Diagnosis Date Acute on chronic combined systolic and diastolic congestive heart failure ([facility]) 11/10/2022 Last Assessment & Plan: [facility] III Continue GDMT- ASA, bumex, entresto coreg, farxiga, and aldatone Diuretic therapy- bumex 3 mg po bid and will send order for bumex 2 mg IV q Thu-Thu and Thursday with weekly BMP q Thu. 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 ([facility]) 12/19/2015 Bipolar disorder ([facility]) 09/10/2022 Carotid artery occlusion 06/22/2013 CHF (congestive heart failure) ([facility]) Chronic ulcer of great toe of left foot with fat layer exposed ([facility]) COPD without exacerbation ([facility]) 02/05/2023 Diabetes ([facility]) Diabetic foot ulcer ([facility]) DVT (deep venous thrombosis) ([facility]) 09/10/2022 GERD (gastroesophageal reflux disease) Morbid obesity ([facility]) Pyogenic granuloma of skin Stroke (cerebrum) ([facility]) Medications Current Outpatient Medications: Aspirin Low Dose 81 MG EC tablet, TAKE 1 TABLET (81 MG) BY MOUTH IN THE MORNING., Disp: , Rfl: atorvastatin (Lipitor) 80 MG tablet, 1 (one) time each day at the same time., Disp: , Rfl: bumetanide (Bumex) 1 MG tablet, Take 3 mg by mouth., Disp: , Rfl: carvedilol (Coreg) 3.125 MG tablet, every 12 (twelve) hours. (Patient taking differently: 6.125 mg every 12 (twelve) hours), Disp: , Rfl: Eliquis 5 MG tablet, TAKE ONE TABLET BY MOUTH TWICE A DAY ( IN THE MORNING AND AT BEDTIME ), Disp: , Rfl: gabapentin (Neurontin) 800 MG tablet, Take 800 mg by mouth in the morning and 800 mg in the evening and 800 mg before bedtime., Disp: , Rfl: isosorbide mononitrate ER (Imdur) 30 MG 24 hr tablet, 1 (one) time each day at the same time., Disp: , Rfl: metFORMIN (Glucophage) 500 MG tablet, 1 tablet, Disp: , Rfl: spironolactone (Aldactone) 50 MG tablet, Take 50 mg by mouth in the morning., Disp: , Rfl: tamsulosin (Flomax) 0.4 MG 24 hr capsule, Take 0.4 mg by mouth in the morning and 0.4 mg before bedtime., Disp: , Rfl: busPIRone (Buspar) 10 MG tablet, TAKE ONE TABLET BY MOUTH TWICE A DAY (Patient not taking: Reported on 03/07/2024), Disp: , Rfl: Continuous Glucose Sensor (FreeStyle Wilbert 2 Sensor) [facility], Inject 1 kit under the skin every 14 (fourteen) days, Disp: 6 each, Rfl: 1 diclofenac sodium 1 % gel, APPLY TWO TO FOUR TIMES GRAMS TOPICALLY TO AFFECTED AREA EVERY 4-6 HOURS, Disp: , Rfl: diphenoxylate-atropine (Lomotil) 2.5-0.025 MG tablet, 1 tablet, Disp: , Rfl: divalproex (Depakote) 125 MG EC tablet, TAKE ONE TABLET BY MOUTH TWICE A DAY WITH 500MG TABLETS, Disp: , Rfl: divalproex (Depakote) 500 MG EC tablet, TAKE ONE TABLET BY MOUTH TWICE A DAY WITH 125MG TO TOTAL 625MG, Disp: , Rfl: Entresto 24-26 MG tablet, every 12 (twelve) hours., Disp: , Rfl: Farxiga 10 MG, 1 tablet, Disp: , Rfl: Lantus SoloStar 100 UNIT/ML pen, INJECT 26 unit SUBCUTANEOUSLY EVERY DAY (Patient not taking: Reported on 03/07/2024), Disp: , Rfl: linezolid (Zyvox) 600 MG tablet, Take 600 mg by mouth every 12 (twelve) hours., Disp: , Rfl: midodrine (Proamatine) 5 MG tablet, TAKE ONE TABLET BY MOUTH THREE TIMES A DAY ( IN THE MORNING , AT NOON, AND AT BEDTIME ), Disp: , Rfl: ondansetron (Zofran) 8 MG tablet, Take by mouth, Disp: , Rfl: potassium chloride CR (Klor-Con M20) 20 MEQ ER tablet, TAKE ONE TABLET BY MOUTH ONCE TO TWICE DAILY DIRECTED, Disp: , Rfl: potassium chloride CR (Klor-Con) 10 MEQ ER tablet, every 12 (twelve) hours., Disp: , Rfl: Quviviq 25 MG tablet, TAKE ONE TABLET BY MOUTH ONCE DAILY 30 MINUTES BEFORE BEDTIME, Disp: , Rfl: semaglutide (Ozempic, 1 MG/DOSE,) 2 MG/1.5ML solution pen-injector, Inject 1 mg under the skin, Disp: , Rfl: No current facility-administered medications for this visit. Allergies Sulfamethoxazole-trimethoprim, Metoclopramide, Peg [id number]-nacl-nasulf, Promethazine, and Sulfa antibiotics Past Surgical History Past Surgical History: Procedure Laterality Date CT ANGIOGRAM HEART CORONARY 06/03/2017 CT ANGIOGRAM TAVR GASTRIC BYPASS GLAUCOMA SURGERY MR ANGIOGRAM HEAD WO IV CONTRAST 11/23/2016 MR ANGIOGRAM HEAD WO IV CONTRAST NERVE SURGERY TOE AMPUTATION Right 2021 Left great toe amputation 2021/Left 2nd toe partial toe TOE AMPUTATION Right 2022 Toes 1-5 amputation. Family History No family history on file. Objective Physical Exam Constitutional: General: He is not in acute distress. Appearance: He is obese. Comments: Presents to clinic ambulating with cane assistance. He is in socks only and not wearing shoes. Cardiovascular: Comments: DP pulse: 1/4 PT pulse: 1/4 Skin temperature is warm to cool Edema: +2 pitting bilaterally. Multiple telangiectasias and varicosities bilaterally. Pulmonary: Effort: Pulmonary effort is normal. No respiratory distress. Musculoskeletal: Cervical back: Neck supple. No rigidity. Comments: Pedal deformities: Right foot: Transmetatarsal amputation with ulceration at the distal stump. Currently being managed by Dr. Diaz. Left foot: Partial hallux and 2nd toe amputation. Mild hammertoe contractures of remaining toes. Preulcerative lesion on the distal tuft of the 3rd toe. Skin: Capillary Refill: Capillary refill takes 2 to 3 seconds. Comments: Ulceration of the right TMA stump. Preulcerative lesion of the distal aspect of the left 3rd toe. Otherwise no ulcers. Skin is diffusely thin, atrophic appearing. No hair growth noted. Neurological: Mental Status: He is alert. Comments: Protective sensation intact at 4/9 pedal sites left foot, 0/5, right foot. Psychiatric: Mood and Affect: Mood normal. Behavior: Behavior normal. Assessment/Plan ICD-10-CM 1. Diabetic polyneuropathy associated with type 2 diabetes mellitus ([facility]) E11.42 2. Type 2 diabetes mellitus with foot ulcer (CODE) ([facility]) E11.621 Ambulatory referral to Podiatry 3. Non-pressure chronic ulcer of other part of left foot with fat layer exposed ([facility]) L97.522 Ambulatory referral to Podiatry 4. Pressure ulcer of left heel, stage 2 ([facility]) L89.622 Ambulatory referral to Podiatry 5. 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 ([facility]) L97.418 Ambulatory referral to Podiatry 6. Equinus contracture of right ankle M24.571 7. Equinus contracture of left ankle M24.572 8. History of amputation Z89.9 Patient examined and evaluated. He is an excellent candidate for diabetic shoes due to pedal deformities as well as significant neuropathy and amputations bilaterally. Diabetic shoes may help to reduce the risk of ulceration going forward as well as to potentially assist with ulceration healing going forward to try and reduce pressure over the ulcerative areas. He will require custom toe filler on the right side due to his history of transmetatarsal amputation. We will complete the diabetic shoe paperwork and when we receive the paperwork back from the patient's primary care physician we will have the patient return for diabetic shoe measuring and scanning for custom toe filler of the right foot. This note was created with the assistance of a speech recognition program. While intending to generate a timely document that accurately reflects the content of the visit, no guarantee can be provided that every grammatical or spelling mistake has been or will be identified or corrected. Thank you for your understanding. Homar Goodrich DPM documented in this encounter [facility] 02-09-2024 Note Matt states has had amputation of all toes on right LE in past. Toes on right amputated more recent. CPetersRN [facility] 02-01-2024 Note [facility] 01-27-2024 Note [facility] 01-07-2024 Note [facility] 12-22-2023 Note [facility] 12-14-2023 Note [facility] 10-20-2023 Note [facility] 10-13-2023 Note neur [facility] 10-12-2023 Note [facility] 09-29-2023 Note [facility] 09-29-2023 Note [facility] 09-02-2023 Note Patient provided dis charge instructions and all belongings with patient. Patient discharged to private vehicle [facility] 09-02-2023 Note [facility] 09-02-2023 Note [facility] 09-01-2023 Note Patient planning dis charge to home, with providing wound care ( is reported to be retired [employer]) [facility] 09-01-2023 Note [facility] 09-01-2023 Note [facility] 08-31-2023 Note Patient called RN in at the bedside- had a lengthy conversation with patient. At this time, patient is requesting for a new provider to take over patient's case. RN messaged Dr. Eddy with patient's concern at this time. [facility] 08-31-2023 Note [facility] 08-31-2023 Note [facility] 08-31-2023 Note [facility] 08-30-2023 Note [facility] 08-30-2023 Note [facility] 08-29-2023 Note [facility] 08-29-2023 Note [facility] 08-28-2023 Note [facility] 08-28-2023 Note [facility] 08-28-2023 Note [facility] 08-28-2023 Note [facility] 08-27-2023 Note [facility] 08-27-2023 Note [facility] 08-27-2023 Note [facility] 08-27-2023 Note [facility] 08-27-2023 Note [facility] 08-26-2023 Note [facility] 08-05-2023 Note [facility] 07-30-2023 Note [facility] 07-09-2023 Note [facility] 07-02-2023 Note [facility] 06-24-2023 Note [facility] 06-24-2023 Note Coronary artery dise ase is stable Continue GDMT [facility] 06-24-2023 Note Stable, rate control led continue eliquis anticoagulation and coreg [facility] 06-24-2023 Note [facility] 06-24-2023 Note [facility] [facility] 06-19-2023 Note Opened in error [facility] 06-18-2023 Note After Visit Summary from 06/17/2023 discharge sent to [facility] via [facility] 06-17-2023 Note [facility] 06-17-2023 Note [facility] 06-17-2023 Note [facility] 06-16-2023 Note [facility] 06-16-2023 Note [facility] 06-16-2023 Note [facility] 06-15-2023 Note [facility] 06-15-2023 Note [facility] 06-15-2023 Note [facility] 06-15-2023 Note [facility] 06-15-2023 Note [facility] 06-15-2023 Note [facility] 06-14-2023 Note [facility] 06-14-2023 Note [facility] 06-13-2023 Note [facility] 06-13-2023 Note [facility] 06-12-2023 Evaluation note Encounter Date Diagnosis Assessment Notes Jun, Laceration of scalp without foreign body, initial encounter (ICD-10 - S01.01XA) Jun, 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 Jun, Idiopathic aseptic necrosis of left femur (ICD-10 - M87.052) Qualifies for and needs a new lift chair. Jun, Localized osteoarthritis of both knees (ICD-10 - M17.0) Qualifies for and needs a new lift chair. Jun, Congestive heart failure (CHF) (ICD-10 - I50.9) Qualifies for and needs a new wheelchair. Continue care with [facility] Encounter Date Diagnosis Assessment Notes Treatment Notes Treatment Clinical Notes May, RUQ abdominal pain (ICD-10 - R10.11) Matt says his gastric bypass surgeon, who is now passed, told him his gall bladder was too inflammed when he had his surgery to remove it. Unsure if local surgeons would be willing to remove his gall bladder after his gastric bypass. 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 It can also help your wound heal more quickly. Follow instructions from your health care provider about how to care for your wound. Supplies needed: Soap and water. Wound cleanser, saline, or germ-free (sterile) water. Gauze. If needed, a clean bandage (dressing) or other type of wound dressing material to cover or place inthe wound. Follow your health care provider's instructions about what dressing supplies to use. Cream or topical ointment to apply to the wound, if told by your health care provider. How to care for your wound Cleaning the wound Ask your health care provider how to clean the wound. This may include: Using mild soap and water, a wound cleanser, saline, or sterile water. Using a clean gauze to pat the wound dry after cleaning it. Do not rub or scrub the wound. Dressing care Wash your hands with soap and water for at least 20 seconds before and after you change the dressing. If soap and water are not available, use hand benefit director. Change your dressing as told by your health care provider. This may include: ?Cleaning or rinsing out (irrigating) the wound. ?Application of cream or topical ointment, if told by your health care provider. ?Placing a dressing over the wound or in the wound (packing). ?Covering the wound with an outer dressing. Leave stitches (sutures), gwen, skin glue, or adhesive strips in place. These skin closures may need to stay in place for 2 weeks or longer. If adhesive strip edges start to loosen and curl up, you may trim the loose edges. Do not remove adhesive strips completely unless your health care provider tells you to do that. Ask your health care provider when you can leave the wound uncovered. Checking for infection Check your wound area every day for signs of infection. Check for: More redness, swelling, or pain. Fluid or blood. Warmth. Pus or a bad smell. Follow these instructions at home Medicines If you were prescribed an antibiotic medicine, cream, or ointment, take or apply it as told by yourhealth care provider. Do not stop using the antibiotic even if your condition improves. If you were prescribed pain medicine, take it 30 minutes before you do any wound care or as told byyour health care provider. Take elun-dql-lqkerds and prescription medicines only as told by your health care provider. Eating and drinking Eat a diet that includes protein, vitamin A, vitamin C, and other nutrient-rich foods to help the wound heal. ?Foods rich in protein include meat, fish, eggs, dairy, beans, and nuts. ?Foods rich in vitamin A include carrots and dark green, leafy vegetables. ?Foods rich in vitamin C include citrus fruits, tomatoes, broccoli, and peppers. Drink enough fluid to keep your urine pale yellow. General instructions Do not take baths, swim, or use a hot tub until your health care provider approves. Ask your healthcare provider if you may take showers. You may only be allowed to take sponge baths. Do not scratch or pick at the wound. Keep it covered as told by your health care provider. Return to your normal activities as told by your health care provider. Ask your health care provider what activities are safe for you. Protect your wound from the sun when you are outside for the first 6 months, or for as long as toldby your health care provider. Cover up the scar area or apply sunscreen that has an SPF of at least30. Do not use any products that contain nicotine or tobacco. These products include cigarettes, chewing tobacco, and vaping devices, such as e-cigarettes. If you need help quitting, ask your health careprovider. Keep all follow-up visits. This is important. Contact a health care provider if: You received a tetanus shot and you have swelling, severe pain, redness, or bleeding at the injection site. Your pain is not controlled with medicine. You have any of these signs of infection: ?More redness, swelling, or pain around the wound. ?Fluid or blood coming from the wound. ?Warmth coming from the wound. ?A fever or chills. You are nauseous or you vomit. You are dizzy. You have a new rash or hardness around the wound. Get help right away if: You have a red streak of skin near the area around your wound. Pus or a bad smell coming from the wound. Your wound has been closed with gwen, sutures, skin glue, or adhesive strips and it begins to open up and separate. Your wound is bleeding, and the bleeding does not stop with gentle pressure. These symptoms may represent a serious problem that is an emergency. Do not wait to see if the symptoms will go away. Get medical help right away. Call your local emergency services (911 in the [place] Do not drive yourself to the hospital. Summary Always wash your hands with soap and water for at least 20 seconds before and after changing your dressing. Change your dressing as told by your health care provider. To help with healing, eat foods that are rich in protein, vitamin A, vitamin C, and other nutrients. Check your wound every day for signs of infection. Contact your health care provider if you think that your wound is infected. This information is not intended to replace advice given to you by your health care provider. Make sure you discuss any questions you have with your health care provider. Document Revised: 09/03/2021 Document Reviewed: 09/03/2021 [employer] Patient Education 2022 [employer] ( [employer] ). Follow Up Care 02/26/2023 15:28:46 With:Santos Epperson Address: [facility]: c/o [address] [place] [address]- When:03/01/2023 17:58:35 Comments:Call tomorrow for nurse visit in wound care office. [facility]10-19-2023 Evaluation + Plan noteExtracted from: Title:ED Note Author:Derrick Benson DO Date:1 Visit for wound check (Z51.8 9: Encounter for other specified aftercare) Orders: morphine, 4 mg = 2 mL, Injection, IV Push, Once, Stop date 02/26/23 17:13:00 EDT, STAT, Start date 02/26/23 17:13:00 EDT, 02/26/23 17:13:00 EDT [facility]10-06-2023 Evaluation note* Encounter Date Diagnosis Assessment Notes Treatment Notes Treatment Clinical Notes Feb, Other chronic osteomyelitis of right foot (ICD-10 - M86.671) Pt states he has an appt w wound care at [facility] on 02/19. He is established with [facility] and has a PICC line. Prior to this surgery, he was using IV Vanco at home. Presently on once daily Rocephin. He is declining PT. Discussed with nursing yard labor supervisor. Pt d/c home with [facility]. He will need a wound vac at home (using [place] property right now). Pt unsure if he will continue to followup w Dr. Epperson or just pursue care at [facility]. Feb, Congestive heart failure (CHF) (ICD-10 - I50.9) Continue followup w Dr. Gomez with [facility]. Feb, Type 2 diabetes mellitus with hyperglycemia (ICD-10 - E11.65) Reviewed glucose readings. Overall in the 130s. Pt will resume his diabetes treatment with medications from his shake packer at home. ip[facility] Comment: Electronically Signed By: Javon Edwards DO\.br\Date and Time Signed: 02/11/23 13:11 [id number] [facility] Comment on above:Result Comment: Electronically Signed By: VAMSI GILBERT, Mimi\.br\Date and Time Signed: 02/05/23 16:47 [id number] Evaluation note* Encounter Date Diagnosis Assessment Notes Treatment Notes Treatment Clinical Notes Jan, Primary insomnia (ICD-10 - F51.01) Pt states med is helping his chronic insomnia. 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 ipvive Other 09-07-2023 Evaluation + Plan noteExtracted from: Title:Discharge Note Author:Javon Edwards DO Date:01/15/23 stable Discharge To, Anticipated II - Home with home health Discharged to - Home independently Transported by, Anticipated - Family Discharge Diet(s): Calorie Controlled- 1800 Calorie Diet, Fat Modified- Low cholesterol, Low Sodium- 2000 mg (01/15/23 09:29:00) Prescriptions apixaban 2.5 mg oral tablet, 2.5 mg= 1 tab(s), Oral, BID cholecalciferol 2000 intl units oral capsule, 50 mcg= 1 cap(s), Oral, Daily ferrous sulfate 325 mg Tab, 325 mg= 1 tab(s), Oral, TID linezolid 600 mg Tab, 600 mg= 1 tab(s), Oral, q12hr S.A.S.(Saline, Administration of Drug, Saline), 0 S.A.S.H.(Saline, Administration of Drug, Saline, Heparin, 0 tamsulosin 0.4 mg Cap, 0.4 mg= 1 cap(s), Oral, BID, 6 refills Home Advair 250 mcg-50 mcg Powder, 1 puff(s), Inhalation, BID Aldactone 100 mg Tab, 100 mg= 1 tab(s), Oral, Daily aspirin 81 mg Chew Tab, 81 mg= 1 tab(s), Chewed, Daily atorvastatin 80 mg Tab, 80 mg= 1 tab(s), Oral, Daily atropine-diphenoxylate 0.025 mg-2.5 mg Tab, 1 tab(s), Oral, QID, PRN bumetanide 1 mg Tab, 3 mg= 3 tab(s), Oral, BID Coreg 3.125 mg Tab, 3.125 mg= 1 tab(s), Oral, BID diclofenac topical 1% gel, 1 raymon, Topical, QID, PRN divalproex sodium 125 mg Cap-EC, 125 mg= 1 cap(s), Oral, BID divalproex sodium 500 mg Oral EC Tab, 500 mg= 1 tab(s), Oral, BID Entresto 24 mg-26 mg oral tablet, 0.5 tab(s), Oral, BID Farxiga 10 mg oral tablet, 10 mg= 1 tab(s), Oral, Daily finasteride 5 mg Tab, 5 mg= 1 tab(s), Oral, Daily fluticasone Nasal 0.05 mg/inh [place], 2 spray(s), Nasal, Daily, PRN gabapentin 800 mg Tab, 800 mg= 1 tab(s), Oral, TID Humulin R (Concentrated) 500 units/mL subcutaneous solution, See Instructions, Not taking isosorbide mononitrate 30 mg ER Tab, 30 mg= 1 tab(s), Oral, Daily Lantus 100 units/mL Injection-Insulin, 30 unit(s), SubCutaneous, BID, Not taking metformin 500 mg Tab, 500 mg= 1 tab(s), Oral, BID Multi Vitamins oral tablet, 1 tab(s), Oral, Daily naloxone 2 mg/ 2 mL Inj Syringe, 2 mg, Nasal, As Directed Nitro 0.4 mg Tab, 1 tab(s), SubLingual, q5min, PRN oxyCODONE 5 mg Cap, 5 mg= 1 cap(s), Oral, q6hr, PRN potassium chloride 10 mEq Cap-ER, 10 mEq= 1 cap(s), Oral, BID, PRN Quviviq 25 mg oral tablet, 25 mg= 1 tab(s), Oral, Bedtime, PRN Spiriva 18 mcg Cap, 18 mcg= 1 cap(s), Inhalation, Daily Xtampza ER 18 mg oral capsule, extended release, 18 mg= 1 cap(s), Oral, q12hr Zofran 8 mg Tab, 8 mg= 1 tab(s), Oral, TID, PRN NEW: 1. Linezolid 600 mg 1 p.o. twice daily for 10 days With When Contact Information SURAJ LLANOS 01/22/2023 10:30 AM EDT [address] [place] [address] [facility] (1) Additional Instructions: Call for followup appointment Podiatry as scheduled January 21 Additional Instructions: Extracted from: Title:Progress/SOAP Note Author:Leila Edwards DO Date:01/14/23 62-year-old male admitted fo r right leg, right foot cellulitis secondary to right foot osteomyelitis secondary to diabetes mellitus. He has a history of coronary artery disease status post stent x2, chronic combined systolic and diastolic CHF, PAF on apixaban, COPD, obstructive sleep apnea on BiPAP, chronic hypoxic respiratory failure with as needed home O2 and nbi-arhhhay-cbpwtkhjr type 2 diabetes, hypertension, hyperlipidemia, bipolar disorder, anxiety, BPH and recent right foot TMA. 1. Cellulitis of right leg (L03.115: Cellulitis of right lower limb) Continue vancomycin and Zosyn Surgical wound culture from the third is growing gram-positive rods Patient may need a PICC line or midline Pain control as needed; I will switch morphine to Dilaudid for now 2. Osteomyelitis of foot, acute (M86.179: Other acute osteomyelitis, unspecified ankle and foot) See #1 3. COPD without exacerbation (J44.9: Chronic obstructive pulmonary disease, unspecified) Continue DuoNebs 4 times daily as needed 4. Chronic diastolic heart failure (I50.32: Chronic diastolic (congestive) heart failure) On Aldactone, Bumex, carvedilol, isosorbide mononitrate and Entresto 5. Coronary artery disease (I25.10: Atherosclerotic heart disease of nikolai coronary artery without angina pectoris) See #4 for medications 6. Diabetes (E11.9: Type 2 diabetes mellitus without complications) Sliding scale insulin along with metformin 7. History of DVT in adulthood (Z86.718: Personal history of other venous thrombosis and embolism) Continue apixaban 8. Hypertension (I10: Essential (primary) hypertension) See #4 above 9. Hyperlipidemia (E78.5: Hyperlipidemia, unspecified) Maintain statin therapy with atorvastatin 10. Morbid obesity due to excess calories (E66.01: Morbid (severe) obesity due to excess calories) 11. PAF (paroxysmal atrial fibrillation) (I48.0: Paroxysmal atrial fibrillation) On carvedilol and apixaban 12. Sleep apnea (G47.30: Sleep apnea, unspecified) BiPAP at night 13. Chronic hypoxemic respiratory failure (J96.11: Chronic respiratory failure with hypoxia) 14. On deep vein thrombosis (DVT) prophylaxis (Z79.899: Other terminal operations supervisor (current) drug therapy) Continue apixaban Orders: HYDROmorphone, 1 mg = 1 mL, Injection, IV Push, q4hr PRN Pain 8-10, Routine, Start date 01/14/23 13:23:00 EDT, 01/14/23 13:23:00 EDT PLAN: 1. We will continue IV vancomycin and Zosyn 2. Wound culture from surgery on January 11 with gram-positive rods; will need to finalize that for antibiotic coverage; he has had various bacteria in the past including ESBL E. coli and MSSA 3. Patient may need a midline or PICC line depending on the culture results 4. Continue aspirin, Aldactone and Bumex, Entresto, Lipitor, apixaban, carvedilol and isosorbide mononitrate 5. Wound dressing per podiatry 6. On sliding scale insulin and metformin for his diabetes 7. Discharge planning pending finalization of culture from January 11 Extracted from: Title:Progress/SOAP Note Author:Leila Edwards DO Date:01/13/23 62-year-old male admitted fo r right leg, right foot cellulitis secondary to right foot osteomyelitis secondary to diabetes mellitus. He has a history of coronary artery disease status post stent x2, chronic combined systolic and diastolic CHF, PAF on apixaban, COPD, obstructive sleep apnea on BiPAP, chronic hypoxic respiratory failure with as needed home O2 and tlb-ywdxwws-whftmyagu type 2 diabetes, hypertension, hyperlipidemia, bipolar disorder, anxiety, BPH and recent right foot TMA. 1. Cellulitis of right leg (L03.115: Cellulitis of right lower limb) Continue Zosyn and vancomycin Podiatry input appreciated; awaiting ID input for outpatient antibiotics Ordered: Home Health Orders 2. Osteomyelitis of foot, acute (M86.179: Other acute osteomyelitis, unspecified ankle and foot) MRI shows possible osteomyelitis but this may be chronic Podiatry feels patient can be discharged pending ID input Ordered: Home Health Orders 3. COPD without exacerbation (J44.9: Chronic obstructive pulmonary disease, unspecified) DuoNebs 4 times daily as needed 4. Chronic diastolic heart failure (I50.32: Chronic diastolic (congestive) heart failure) On Aldactone and Bumex as well as carvedilol and Entresto 5. Coronary artery disease (I25.10: Atherosclerotic heart disease of nikolai coronary artery without angina pectoris) As above #4 but also on aspirin, Lipitor and apixaban for PAF; he is also on isosorbide mononitrate 6. Diabetes (E11.9: Type 2 diabetes mellitus without complications) Sliding scale insulin coverage and metformin on apixaban 7. History of DVT in adulthood (Z86.718: Personal history of other venous thrombosis and embolism) 8. Hypertension (I10: Essential (primary) hypertension) see 4 and 5 above 9. Hyperlipidemia (E78.5: Hyperlipidemia, unspecified) Continue statin therapy 10. Morbid obesity due to excess calories (E66.01: Morbid (severe) obesity due to excess calories) 11. PAF (paroxysmal atrial fibrillation) (I48.0: Paroxysmal atrial fibrillation) Continue carvedilol and apixaban 12. Sleep apnea (G47.30: Sleep apnea, unspecified) BiPAP at night 13. Chronic hypoxemic respiratory failure (J96.11: Chronic respiratory failure with hypoxia) 14. On deep vein thrombosis (DVT) prophylaxis (Z79.899: Other group home (current) drug therapy) On apixaban Orders: Basic Metabolic Panel eGFR Extra Lav Tube Referral to Resource Center PLAN: 1. Refer to above 2. Awaiting ID input regarding outpatient antibiotic therapy 3. Discharge planning later today Extracted from: Title:Infection Admission H&P * Author:Ronaldo Arcos M.D Date:01/13/23 Impression and Plan Diagnosis Right foot infection with cellulitis . Orders In looking back at the year patient has had various positive cultures from his right foot. There is different MSSA's along with other gram-positive organisms and an ESBL E. coli most recently from August 14, 2022. New culture from the wound is pending. Given his varied infections in the past is hard to know which specific antibiotic to choose for this patient's discharge now. Patient also may require IV antibiotics depending on result. At this point in time would favor awaiting the 01/11 culture to be finalized before decision on discharge could be made. Obviously failed doxycycline. If able could choose an oral quinolone but previous isolates from this patient has shown resistance to quinolones. . Extracted from: Title:Progress/SOAP Note Author:Leila Edwards DO Date:01/12/23 62-year-old male admitted fo r right leg, right foot cellulitis secondary to right foot osteomyelitis secondary to diabetes mellitus. He has a history of coronary artery disease status post stent x2, chronic combined systolic and diastolic CHF, PAF on apixaban, COPD, obstructive sleep apnea on BiPAP, chronic hypoxic respiratory failure with as needed home O2 and esp-yzsxagy-lnbfopbcx type 2 diabetes, hypertension, hyperlipidemia, bipolar disorder, anxiety, BPH and recent right foot TMA. 1. Cellulitis of right leg (L03.115: Cellulitis of right lower limb) We will continue Zosyn and vancomycin; day 3 Failed outpatient treat with Doxy MRI shows possible osteomyelitis Appreciate podiatry input Continue wound dressing changes 2. Osteomyelitis of foot, acute (M86.179: Other acute osteomyelitis, unspecified ankle and foot) MRI shows the possibility of osteomyelitis, will continue IV antibiotics and wait podiatry input for today; patient says previous MRIs that showed possible osteomyelitis in the past 3. COPD without exacerbation (J44.9: Chronic obstructive pulmonary disease, unspecified) DuoNebs 4 times daily as needed 4. Chronic diastolic heart failure (I50.32: Chronic diastolic (congestive) heart failure) Continue oral Aldactone and Bumex; also on carvedilol and Entresto 5. Coronary artery disease (I25.10: Atherosclerotic heart disease of nikolai coronary artery without angina pectoris) See #4; also on aspirin, Lipitor plus apixaban for PAF Also on isosorbide mononitrate 6. Diabetes (E11.9: Type 2 diabetes mellitus without complications) Continue sliding scale insulin coverage with metformin 7. History of DVT in adulthood (Z86.718: Personal history of other venous thrombosis and embolism) On apixaban 8. Hypertension (I10: Essential (primary) hypertension) See #4 and 5 above 9. Hyperlipidemia (E78.5: Hyperlipidemia, unspecified) Continue statin therapy with Lipitor 10. Morbid obesity due to excess calories (E66.01: Morbid (severe) obesity due to excess calories) Recommend therapeutic lifestyle modification changes 11. PAF (paroxysmal atrial fibrillation) (I48.0: Paroxysmal atrial fibrillation) Maintain apixaban plus carvedilol 12. Sleep apnea (G47.30: Sleep apnea, unspecified) BiPAP at night 13. Chronic hypoxemic respiratory failure (J96.11: Chronic respiratory failure with hypoxia) 14. On deep vein thrombosis (DVT) prophylaxis (Z79.899: Other group home (current) drug therapy) On apixaban PLAN: 1. Refer to above 2. Await podiatry input today; if this is chronic as the patient states has been in the past, he may be able to go home later today or tomorrow where he may require further intervention per podiatry Extracted from: Title:SOAP Note: podiatry Author:Ofelia Epperson DPM Date:01/11/23 Patient: MATT WATERMAN Age: 62 years Sex: Male : 1960 Associated Diagnoses: None Author: Santos Epperson DPM Subjective Chief complaint 01/10/2023 15:22 EDT cellulitis and foot infection 01/10/2023 12:16 EDT started doxy po four days ago for right leg cellulitis. dr epperson wanted to admit for iv antibiotics if outpt antibiotics failed. pt reports redness is worsening. . Health Status Allergies: Allergic Reactions (Selected) Severity Not Documented GoLYTELY- Rash. Phenergan- Shortness of breath. Reglan- Twitching and rash. Sulfa drugs- Rash. Problem list: All Problems (Selected) Anxiety / SNOMED CT 90865750 / Confirmed Aortic root dilation / SNOMED CT 762413917 / Confirmed At risk for falls / SNOMED CT 980750323 / Possible Problem added when Risk for Falls Careplan was initiated. Atrial fibrillation / SNOMED CT 45283920 / Confirmed BPH (benign prostatic hyperplasia) / SNOMED CT 338070650 / Confirmed BPH with urinary obstruction / SNOMED CT 0578102316 / Confirmed BPH without urinary obstruction / SNOMED CT 7375538803 / Confirmed Bipolar disorder / SNOMED CT 06027464 / Confirmed BMI 35.0-35.9,adult / SNOMED CT 009403020 / Confirmed CAD - Coronary artery disease / SNOMED CT 1089379696 / Confirmed Chronic anemia / SNOMED CT 251982046 / Confirmed Chronic diastolic heart failure / SNOMED CT 4799058421 / Confirmed COPD (chronic obstructive pulmonary disease) / SNOMED CT 45246781 / Confirmed COPD without exacerbation / SNOMED CT 44179496 / Confirmed Chronic systolic heart failure / SNOMED CT 1782147703 / Confirmed CHF (congestive heart failure) / SNOMED CT 20001920 / Confirmed Coronary artery disease / SNOMED CT 26504527 / Confirmed DVT (deep venous thrombosis) / SNOMED CT 319322973 / Confirmed Diabetes / SNOMED CT 970135970 / Confirmed Diabetic peripheral neuropathy / SNOMED CT 5017544176 / Confirmed DM - Diabetes mellitus / SNOMED CT 479205121 / Confirmed ESBL 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 / SNOMED CT 7492444915 / Confirmed ESBL E coli in rt foot wound 08/14/2022 Flank pain / SNOMED CT 500020885 / Confirmed Chronic GERD / SNOMED CT 725172665 / Confirmed Personal history of kidney stones / SNOMED CT 3836600244 / Confirmed History of DVT in adulthood / SNOMED CT 3840372354 / Confirmed Hyperlipidemia / SNOMED CT 84344228 / Confirmed Hypertension / SNOMED CT 9610603953 / Confirmed Incomplete bladder emptying / SNOMED CT 281998689 / Confirmed Incontinence without sensory awareness / SNOMED CT 3693132116 / Confirmed Depression with anxiety / SNOMED CT 482445046 / Confirmed Morbid obesity due to excess calories / SNOMED CT 676250908 / Confirmed IN (myocardial infarction) / SNOMED CT 01505210 / Confirmed Diabetic neuropathy / SNOMED CT 5315290435 / Confirmed Nocturia / SNOMED CT 702172778 / Confirmed ROBYN on CPAP / SNOMED CT 285365155 / Confirmed Obstructive sleep apnea / SNOMED CT 994101487 / Confirmed Osteomyelitis / SNOMED CT 05181836 / Confirmed PAF (paroxysmal atrial fibrillation) / SNOMED CT 325185096 / Confirmed Urinary retention / SNOMED CT 228616612 / Confirmed Sleep apnea / SNOMED CT 820406683 / Confirmed Urgency incontinence / SNOMED CT 520059781 / Confirmed Objective SOAP Note: podiatry Patient: MATT SALDAÑA Age: 65 years Sex: Male : 06/07/1957 Associated Diagnoses: None Author: Argelia GOODSON, Santos Headley Subjective pt seen bedside for cellulitis and pain right foot and leg. Pt is well known to the office recently had revision tma right was healed for about 2 months came to the office one week ago with a new wound and failed oral antibiotics. pt states he had IN in october and has been very tired trying to walk more. Pt is a diabetic as well had prior dvt right side currently on eliquis. Health Status Allergies: No active allergies have been recorded. Objective derm: wound sub 2-3rd met right shaft plantarly wound is full thickness does not probe to bone fibroitic wound bed no active purulence noted cellulitis is resolving wound about [id number] 3mm depth no malodor mild hyperkeratotic rim vasc: barely palpable pedal pulse b/l nonpitting edema right leg neuro: loss of protective sensation msk: tma right Results Review xray compared to august large changes in lisfranc and 1st ray due to charcot. MRI is pending for today Impression and Plan This 65 y/o male diabetic with h/o recent IN, htn, chronic kidney disease with recent new wound cellulitis right foot and leg -continue iv abx -mri pending once completed and no acute osteomyelitis or abscess no need for surgical intervention -daily dressings dakins soaked gauze kerlix to wound bed daily with tubigrip below knee -will await mri -pt needs to be off his right foot completely Signature Line Electronically Signed By: Santos Epperson DPM Date and Time Signed: 01/11/23 09:54 EDT Results Review General results Interpretation: mri pending Addendum by Latoya Epperson DPM on January 13, 2023 9:01 EDT reviewed mri report ulceration is not involving the 1st met base does not tract continue iv abx and will await dr Bud boucher no surgery needed pt will need home health for thud thu dressings with betadine to the wound soaked gauze kerlix cast padding x2 and double 6inch lorenza for mirna compression dressing below the knee pt needs to be barely weight bearing just to the bathroom pt [facility] Extracted from: Title:APSO Note Author:VAMSI GILBERT, Andrewanefo Date: 62-year-old morbidly obese C aucasian male with history of coronary artery disease status post stent x2, chronic combined systolic and diastolic congestive heart failure, paroxysmal atrial fibrillation on apixaban, COPD, obstructive sleep apnea on BiPAP, chronic hypoxic respiratory failure on as needed home oxygen, uuu-mhfwmjc-qmotuvyie diabetes mellitus, hypertension, hyperlipidemia, bipolar disorder, anxiety, BPH, recent right foot TMA presented with complaints of right foot drainage, pain, redness of right leg, fever, chills of several days duration despite taking antibiotic as outpatient and admitted with right leg, right foot cellulitis secondary to suspected right foot osteomyelitis secondary to diabetes mellitus. 1. Cellulitis of right leg (L03.115: Cellulitis of right lower limb) Acute right leg/foot cellulitis secondary to suspected right foot osteomyelitis. Failed outpatient treatment with doxycycline. Continue on IV Zosyn and vancomycin. Wound cultures pending. MRI of the right foot pending. Podiatry consult pending. Ordered: piperacillin-tazobactam + Sodium Chloride 0.9% intravenous solution 50 mL, 3.375 gm = 1 EA, Injection, IV Piggyback, q6hrFT, Routine, Start date 01/10/23 18:00:00 EDT, 100 mL/hr, Infuse over 30 minute(s) vancomycin, PHARMACY TO DOSE, Injection, IV, As Directed, Routine, Start date 01/10/23 15:06:[address] [facility] Care/Day Moderate 35 Minutes 21903 Wound Care Routine Wound Culture 2. Osteomyelitis of foot, acute (M86.179: Other acute osteomyelitis, unspecified ankle and foot) Suspected acute right foot osteomyelitis secondary to diabetes mellitus. MRI of the foot pending. Podiatry consult pending. Continue on IV Zosyn and vancomycin. 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 COPD without exacerbation (J44.9: Chronic obstructive pulmonary disease, unspecified) Stable. Continue nebulizer treatments. Ordered: [facility] Care/Day Moderate 35 Minutes 79252 4. Chronic diastolic heart failure (I50.32: Chronic diastolic (congestive) heart failure) Chronic combined systolic and diastolic congestive heart failure. Stable. Continue on Aldactone, Bumex. Ordered: [facility] Care/Day Moderate 35 Minutes 67239 5. Coronary artery disease (I25.10: Atherosclerotic heart disease of nikolai coronary artery without angina pectoris) Status post stent x2. Stable. Continue on aspirin and Lipitor. Ordered: [facility] Care/Day Moderate 35 Minutes 42096 6. Diabetes (E11.9: Type 2 diabetes mellitus without complications) Continue on metformin and sliding scale insulin. 7. History of DVT in adulthood (Z86.718: Personal history of other venous thrombosis and embolism) On apixaban. 8. Hypertension (I10: Essential (primary) hypertension) Blood pressure fairly controlled. Continue on Aldactone, Bumex and Imdur. 9. Hyperlipidemia (E78.5: Hyperlipidemia, unspecified) Stable. On Lipitor. 10. Morbid obesity due to excess calories (E66.01: Morbid (severe) obesity due to excess calories) Recommend therapeutic lifestyle modification changes. 11. PAF (paroxysmal atrial fibrillation) (I48.0: Paroxysmal atrial fibrillation) Stable. On apixaban. 12. Sleep apnea (G47.30: Sleep apnea, unspecified) Stable. Continue on BiPAP. 13. Chronic hypoxemic respiratory failure (J96.11: Chronic respiratory failure with hypoxia) Continue on nocturnal oxygen and as needed. 14. On deep vein thrombosis (DVT) prophylaxis (Z79.899: Other group home (current) drug therapy) Apixaban. Disposition: Pending MRI of the right foot and podiatry consult. I discussed the diagnosis and plan of care with the patient at the bedside. Moderate level of MDM based on addressing above issues. This documentation was transcribed using voice recognition software. Several attempts were made to ensure accuracy. However inadvertent computerized waste transportation technician errors may be present. Mimi Colin. Hospitalist. Extracted from: Title:Admission H & P Author:Mimi COLIN MD Date:01/10/23 62-year-old morbidly obese [facility] male with history of coronary artery disease status post stent x2, chronic combined systolic and diastolic congestive heart failure, paroxysmal atrial fibrillation on apixaban, COPD, obstructive sleep apnea on BiPAP, chronic hypoxic respiratory failure on as needed home oxygen, amz-ultgpjy-eszbvjafp diabetes mellitus, hypertension, hyperlipidemia, bipolar disorder, anxiety, BPH, recent right foot TMA presented with complaints of right foot drainage, pain, redness of right leg, fever, chills of several days duration despite taking antibiotic as outpatient and is being admitted with right leg, right foot cellulitis secondary to suspected right foot osteomyelitis secondary to diabetes mellitus. 1. Cellulitis of right leg (L03.115: Cellulitis of right lower limb) Acute right leg/foot cellulitis secondary to suspected right foot osteomyelitis. Failed outpatient treatment with doxycycline. Admit to regular medical floor. Started patient on IV Zosyn and vancomycin. Wound culture. Podiatry consulted. MRI of the right foot. Ordered: piperacillin-tazobactam + Sodium Chloride 0.9% intravenous solution 50 mL, 3.375 gm = 1 EA, IV Piggyback, q6hrFT, Routine, Start date 01/10/23 18:00:00 EDT, 100 mL/hr, Infuse over 30 minute(s), 01/10/23 15:06:00 EDT vancomycin, PHARMACY TO DOSE, Injection, IV, As Directed, Routine, Start date 01/10/23 15:06:00 EDT Initial Hospital Care/Day High 75 Minutes 68500 Wound Care Routine Wound Culture 2. Osteomyelitis of foot, acute (M86.179: Other acute osteomyelitis, unspecified ankle and foot) Suspected acute right foot osteomyelitis/secondary to diabetes mellitus. Admit to regular medical floor. MRI of the foot. Podiatry consult. Started patient on IV Zosyn and vancomycin. Ordered: lorazepam, 1 mg = 0.5 mL, Injection, IV Push, Once PRN Other (see comment), Routine, Start date 01/10/23 15:06:00 EDT, 01/10/23 15:06:00 EDT piperacillin-tazobactam + Sodium Chloride 0.9% intravenous solution 50 mL, 3.375 gm = 1 EA, IV Piggyback, q6hrFT, Routine, Start date 01/10/23 18:00:00 EDT, 100 mL/hr, Infuse over 30 minute(s), 01/10/23 15:06:00 EDT vancomycin, PHARMACY TO DOSE, Injection, IV, As Directed, Routine, Start date 01/10/23 15:06:00 EDT 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 Initial Hospital Care/Day High 75 Minutes 75778 Wound Culture 3. COPD without exacerbation (J44.9: Chronic obstructive pulmonary disease, unspecified) Stable. Nebulizer treatments as needed. Ordered: Initial Hospital Care/Day High 75 Minutes 98937 4. Chronic diastolic heart failure (I50.32: Chronic diastolic (congestive) heart failure) Chronic combined systolic and diastolic congestive heart failure Stable. Continue on Bumex and Aldactone. Ordered: Initial Hospital Care/Day High 75 Minutes 06310 5. Coronary artery disease (I25.10: Atherosclerotic heart disease of nikolai coronary artery without angina pectoris) Status post stent x2. Stable. Continue on aspirin, Lipitor. Ordered: Initial Hospital Care/Day High 75 Minutes [id number] 6. Diabetes (E11.9: Type 2 diabetes mellitus without complications) Continue on metformin. Started patient on sliding scale insulin. 7. History of DVT in adulthood (Z86.718: Personal history of other venous thrombosis and embolism) On apixaban. 8. Hypertension (I10: Essential (primary) hypertension) On Bumex, Aldactone and Imdur. 9. Hyperlipidemia (E78.5: Hyperlipidemia, unspecified) On Lipitor. 10. Morbid obesity due to excess calories (E66.01: Morbid (severe) obesity due to excess calories) Recommend therapeutic lifestyle modification changes. 11. PAF (paroxysmal atrial fibrillation) (I48.0: Paroxysmal atrial fibrillation) On apixaban. 12. Sleep apnea (G47.30: Sleep apnea, unspecified) On BiPAP. 13. Chronic hypoxemic respiratory failure (J96.11: Chronic respiratory failure with hypoxia) On nocturnal oxygen and as needed. 14. On deep vein thrombosis (DVT) prophylaxis (Z79.899: Other terminal operations supervisor (current) drug therapy) Apixaban. Disposition: The patient will be admitted under inpatient status and will require greater than 2 midnight hospital stay for the treatment of above right leg/foot cellulitis and suspected acute osteomyelitis of the right foot. I discussed the diagnosis and plan of care with the patient at the bedside. High level of MDM based on addressing above issues. This documentation was transcribed using voice recognition software. Several attempts were made to ensure accuracy. However inadvertent computerized waste transportation technician errors may be present. Mimi Colin. Hospitalist. Orders: acetaminophen, 650 mg = 2 tab(s), Tab, Oral, q6hr PRN Pain, Routine, Start date 01/10/23 15:21:00 EDT, 01/10/23 15:21:00 EDT Al hydroxide/Mg hydroxide/simethicone, 30 mL, Susp-Oral, Oral, q6hr PRN Indigestion, Routine, Start date 01/10/23 15:21:00 EDT diphenhydrAMINE, 25 mg = 1 cap(s), Cap, Oral, q6hr PRN Itching, Routine, Start date 01/10/23 15:21:00 EDT, 01/10/23 15:21:00 EDT glucose, 50 mL, Soln-IV, IV Push, Once PRN Blood glucose, Routine, Start date 01/10/23 15:17:00 EDT hydrALAZINE, 10 mg = 0.5 mL, Injection, IV Push, q6hr PRN Other (see comment), Routine, Start date 01/10/23 15:21:00 EDT, 01/10/23 15:21:00 EDT insulin lispro, 0-10 Unit(s), Injection-Insulin, SubCutaneous, QIDACHS, Routine, Start date 01/10/23 16:30:00 EDT magnesium hydroxide, 30 mL, Susp-Oral, Oral, q6hr PRN Constipation, Routine, Start date 01/10/23 15:21:00 EDT morphine, 2 mg = 1 mL, Injection, IV Push, q4hr PRN Pain for 5 day(s), Stop date 01/15/23 15:20:00 EDT, Routine, Start date 01/10/23 15:21:00 EDT, 01/10/23 15:21:00 EDT ondansetron, 4 mg = 2 mL, Injection, IV Push, q6hr PRN Nausea, Routine, Start date 01/10/23 15:21:00 EDT, 01/10/23 15:21:00 EDT senna, 17.2 mg = 2 tab(s), Tab, Oral, BID PRN Other (see comment), Routine, Start date 01/10/23 15:21:00 EDT, 01/10/23 15:21:00 EDT Basic Metabolic Panel Bi-level Positive Airway Pressure Cardiac Monitoring CBC w/ Auto Diff Diabetic/Calorie Control Diet HgbA1c Hypoglycemia Protocol Responsive Patient Hypoglycemia Protocol Unresponsive Patient May use own CPAP machine as per home MRI Foot w/o Contrast Right Oxygen Protocol Place in Status Pulse Oximetry Respiratory Protocol Resuscitation Status - Full Routine Capillary Glucose POC Up ad Marge Vital Signs Weight Diagnostic Tests Pending * Vancomycin Level Trough 01/17/23 [facility]09-07-2023 Hospital Discharge instructions Patient Education 01/15/2023 10:03:30 Osteomyelitis, Adult Osteomyelitis, Adult Bone infections, also called osteomyelitis,occur when bacteria or other germs get inside a bone. This can happen if you have an infection in another part of your body that spreads through your blood.It can also happen if you have a wound or a broken bone (fracture) that breaks the skin. A wound ora fracture can allow germs from your skin or from outside of your body to spread to your bone. Bone infections need to be treated quickly to: Prevent bone damage. Prevent the infection from spreading to other areas of your body. What are the causes? Most bone infections are caused by bacteria. The most common bacteria is one found on the skin (staphylococcus). Bone infections can also be caused by other germs, such as viruses and funguses. What increases the risk? You are more likely to develop this condition if: You recently had surgery, especially bone or joint surgery. You have had an injury, such as stepping on a nail or having a fracture that exposes bones through the skin. You have a long-term (chronic) disease, such as: ?Diabetes. ?HIV (human immunodeficiency virus). ?Rheumatoid arthritis. ?Sickle cell anemia. ?Kidney disease that requires dialysis. You have a condition that affects your body's defense system (immune system) or you take medicines that block or weaken the immune system. You have a condition that reduces your blood flow. You have an artificial joint. You have had a joint or bone repaired with plates or screws. You use IV drugs. What are the signs or symptoms? Symptoms vary depending on the type and location of your infection. Common symptoms of bone infections include: Fever and chills. Skin redness and warmth. Swelling. Pain and stiffness. Drainage of fluid or pus near the infection. How is this diagnosed? This condition may be diagnosed based on: Your symptoms and medical history. A physical exam. Tests, such as: ?A sample of tissue, fluid, or blood taken to be examined under a microscope. ?Pus or discharge swabbed from a wound for testing. This is to identify the type of germs and to determine what type of medicine will kill them. ?Blood tests. Imaging studies, including X-rays, MRI, CT scan, bone scan, or ultrasound. How is this treated? Treatment for this condition depends on the cause and type of infection. Antibiotic medicines are usually the first treatment for a bone infection. This may be done in a hospital at first. You may have to continue IV antibiotics at home or take antibiotics by mouth for several weeks after that. Other treatments may include surgery to: Remove or dying tissue from a bone. Remove an infected artificial joint. Remove infected plates or screws that were used to repair a broken bone. Follow these instructions at home: Medicines Take mrhg-jza-zpdjeju and prescription medicines as told by your health care provider. Finish all antibiotic medicine even if you start to feel better. Follow instructions from your health care provider about how to take IV antibiotics at home. You may need to have a nurse come to your home to give you the IV antibiotics. Managing pain, stiffness, and swelling If directed, put ice on the affected area. To do this: Put ice in a plastic bag. Place a towel between your skin and the bag. Leave the ice on for 20 minutes, 2 3 times a day. General instructions Ask your health care provider if you have any restrictions on your activities. Do not use any products that contain nicotine or tobacco, such as cigarettes, e- cigarettes, and chewing tobacco. If you need help quitting, ask your health care provider. Keep all follow-up visits as told by your health care provider. This is important. How is this prevented? Wash your hands often to stop the spread of germs. Wash your hands for at least 20 seconds with soap and water. If soap and water are not available, use hand benefit director. Keep any open areas, cuts, or wounds clean. Apply a clean bandage after cleaning the area. Check wounds frequently for signs of infections. Signs of infection include redness, swelling, warmth, pus, or a bad smell. Wear proper footwear to avoid injuries to the feet. Contact a health care provider if: You develop a fever or chills. You have redness, warmth, pain, or swelling that returns after treatment. Get help right away if: You have rapid breathing or you have trouble breathing. You have chest pain. You cannot drink fluids or make urine. The affected area swells, changes color, or turns blue. You have numbness or severe pain in the affected area. These symptoms may represent a serious problem that is an emergency. Do not wait to see if the symptoms will go away. Get medical help right away. Call your local emergency services (911 in the [place] Do not drive yourself to the hospital. Summary Bone infections, also called osteomyelitis,occur when bacteria or other germs get inside a bone. You are more likely to get this type of infection if you have a condition that lowers your ability to fight infections. You are also likely to get this condition if you take medicines that block or weaken the immune system. Most bone infections are caused by bacteria. They can also be caused by other germs, such as viruses and funguses. Treatment for this condition usually starts with taking antibiotics. Further treatment depends on the cause and type of infection. This information is not intended to replace advice given to you by your health care provider. Make sure you discuss any questions you have with your health care provider. Document Revised: 07/12/2020 Document Reviewed: 07/12/2020 [employer] Patient Education 2022 [employer] ( [employer] ). 01/15/2023 10:03:24 Cellulitis, Adult Cellulitis, Adult Cellulitis is a skin infection. The infected area is usually warm, red, swollen, and tender. This condition occurs most often in the arms and lower legs. The infection can travel to the muscles, blood, and underlying tissue and become serious. It is very important to get treated for this condition. What are the causes? Cellulitis is caused by bacteria. The bacteria enter through a break in the skin, such as a cut, burn, insect bite, open sore, or crack. What increases the risk? This condition is more likely to occur in people who: Have a weak body defense system (immune system). Have open wounds on the skin, such as cuts, downey, bites, and scrapes. Bacteria can enter the body through these open wounds. Are older than 60 years of age. Have diabetes. Have a type of long-lasting (chronic) liver disease (cirrhosis) or kidney disease. Are obese. Have a skin condition such as: ?Itchy rash (eczema). ?Slow movement of blood in the veins (venous stasis). ?Fluid buildup below the skin (edema). Have had radiation therapy. Use IV drugs. What are the signs or symptoms? Symptoms of this condition include: Redness, streaking, or spotting on the skin. Swollen area of the skin. Tenderness or pain when an area of the skin is touched. Warm skin. A fever. Chills. Blisters. How is this diagnosed? This condition is diagnosed based on a medical history and physical exam. You may also have tests, including: Blood tests. Imaging tests. How is this treated? Treatment for this condition may include: Medicines, such as antibiotic medicines or medicines to treat allergies (antihistamines). Supportive care, such as rest and application of cold or warm cloths (compresses) to the skin. Hospital care, if the condition is severe. The infection usually starts to get better within 1 2 days of treatment. Follow these instructions at home: Medicines Take eckx-yxn-xjbxdgs and prescription medicines only as told by your health care provider. If you were prescribed an antibiotic medicine, take it as told by your health care provider. Do notstop taking the antibiotic even if you start to feel better. General instructions Drink enough fluid to keep your urine pale yellow. Do not touch or rub the infected area. Raise (elevate) the infected area above the level of your heart while you are sitting or lying down. Apply warm or cold compresses to the affected area as told by your health care provider. Keep all follow-up visits as told by your health care provider. This is important. These visits letyour health care provider make sure a more serious infection is not developing. Contact a health care provider if: You have a fever. Your symptoms do not begin to improve within 1 2 days of starting treatment. Your bone or joint underneath the infected area becomes painful after the skin has healed. Your infection returns in the same area or another area. You notice a swollen bump in the infected area. You develop new symptoms. You have a general ill feeling (malaise) with muscle aches and pains. Get help right away if: Your symptoms get worse. You feel very sleepy. You develop vomiting or diarrhea that persists. You notice red streaks coming from the infected area. Your red area gets larger or turns dark in color. These symptoms may represent a serious problem that is an emergency. Do not wait to see if the symptoms will go away. Get medical help right away. Call your local emergency services (911 in the [place] Do not drive yourself to the hospital. Summary Cellulitis is a skin infection. This condition occurs most often in the arms and lower legs. Treatment for this condition may include medicines, such as antibiotic medicines or antihistamines. Take xvjh-jvq-cfsiney and prescription medicines only as told by your health care provider. If you were prescribed an antibiotic medicine, do not stop taking the antibiotic even if you start to feel better. Contact a health care provider if your symptoms do not begin to improve within 1 2 days of startingtreatment or your symptoms get worse. Keep all follow-up visits as told by your health care provider. This is important. These visits letyour health care provider make sure that a more serious infection is not developing. This information is not intended to replace advice given to you by your health care provider. Make sure you discuss any questions you have with your health care provider. Document Revised: 02/06/2022 Document Reviewed: 02/06/2022 [employer] Patient Education 2022 [employer] ( [employer] ). Follow Up Care 01/10/2023 12:12:35 With:Podiatry as scheduled January 21 Address:Unknown When: Unknown With:SURAJ LLANOS Address: [address] [place] [address]- Business (1) When:01/22/2023 10:30:00 Comments:Call for followup appointment [facility]09[facility]Result Comment: Electronically Signed By: Javon Edwards DO\.br\Date and Time Signed: 01/15/23 09:55 [id number] [facility]:Result Comment: Electronically Signed By: Mimi COLIN MD\.br\Date and Time Signed: 01/10/23 15:26 [id number] Evaluation note* Encounter Date Diagnosis Assessment Notes Treatment Notes Treatment Clinical Notes Oct, Hypertension (ICD-10 - I10) chronic problem. Continue present meds. Oct, CHF (congestive heart failure) (ICD-10 - I50.9) Pt notes increased symptoms. 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 Oct, Primary insomnia (ICD-10 - F51.01) states he is stable on his present dose. 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 [facility] Other 05-30-2023 Evaluation note* Encounter Date Diagnosis Assessment Notes Treatment Notes Treatment Clinical Notes September, Pain, joint, knee, right (ICD-10 - M25.561) September, Right hip pain (ICD-10 - M25.551) [facility] Other 04-10-2023 Evaluation + Plan noteExtracted from: Title:Discharge Note Author:Kennedy HARRIS MD te:08/18/22 Discharge To, Anticipated II - Home with home health Discharged to - Home with home health Discharge Status: Improved Discharge Instructions Given: To patient Discharge disposition: Home health care Prescriptions reviewed with Patient 39 Minute in discharge time Discharge Diet(s): Low Sodium- 2000 mg (08/18/22 10:30:00) Prescriptions apixaban 2.5 mg oral tablet, 2.5 mg= 1 tab(s), Oral, BID cholecalciferol 2000 intl units oral capsule, 50 mcg= 1 cap(s), Oral, Daily ergocalciferol 50,000 intl units Cap, 14596 International_Unit= 1 cap(s), Oral, q7day ferrous sulfate 325 mg Tab, 325 mg= 1 tab(s), Oral, TID Invanz 1 g Injection, 1 gm, IV, Daily S.A.S.(Saline, Administration of Drug, Saline), 0 S.A.S.H.(Saline, Administration of Drug, Saline, Heparin, 0 tamsulosin 0.4 mg Cap, 0.4 mg= 1 cap(s), Oral, BID, 6 refills Home Advair 250 mcg-50 mcg Powder, 1 puff(s), Inhalation, BID Aldactone 100 mg Tab, 100 mg= 1 tab(s), Oral, Daily aspirin 81 mg Chew Tab, 81 mg= 1 tab(s), Chewed, Daily atorvastatin 80 mg Tab, 80 mg= 1 tab(s), Oral, Daily atropine-diphenoxylate 0.025 mg-2.5 mg Tab, 1 tab(s), Oral, QID, PRN bumetanide 1 mg Tab, 2 mg= 2 tab(s), Oral, BID Coreg 3.125 mg Tab, 3.125 mg= 1 tab(s), Oral, BID diclofenac topical 1% gel, 1 raymon, Topical, QID, PRN divalproex sodium 125 mg Cap-EC, 125 mg= 1 cap(s), Oral, BID divalproex sodium 500 mg Oral EC Tab, 500 mg= 1 tab(s), Oral, BID Entresto 24 mg-26 mg oral tablet, 0.5 tab(s), Oral, BID Farxiga 10 mg oral tablet, 10 mg= 1 tab(s), Oral, Daily finasteride 5 mg Tab, 5 mg= 1 tab(s), Oral, Daily fluticasone Nasal 0.05 mg/inh [place], 2 spray(s), Nasal, Daily, PRN gabapentin 800 mg Tab, 800 mg= 1 tab(s), Oral, TID Humulin R (Concentrated) 500 units/mL subcutaneous solution, See Instructions isosorbide mononitrate 30 mg ER Tab, 30 mg= 1 tab(s), Oral, Daily Lantus 100 units/mL Injection-Insulin, 30 unit(s), SubCutaneous, BID metformin 500 mg Tab, 500 mg= 1 tab(s), Oral, BID Multi Vitamins oral tablet, 1 tab(s), Oral, Daily naloxone 2 mg/ 2 mL Inj Syringe, 2 mg, Nasal, As Directed Nitro 0.4 mg Tab, 1 tab(s), SubLingual, q5min, PRN oxyCODONE 5 mg Cap, 5 mg= 1 cap(s), Oral, q6hr, PRN potassium chloride 10 mEq Cap-ER, 10 mEq= 1 cap(s), Oral, BID, PRN Quviviq 25 mg oral tablet, 25 mg= 1 tab(s), Oral, Bedtime, PRN Spiriva 18 mcg Cap, 18 mcg= 1 cap(s), Inhalation, Daily Xtampza ER 18 mg oral capsule, extended release, 18 mg= 1 cap(s), Oral, q12hr Zofran 8 mg Tab, 8 mg= 1 tab(s), Oral, TID, PRN With When Contact Information Birgit Cordova Within 1 week [address] [place] [address]- Business (1) Additional Instructions: Call for followup appointment Call physician if symptoms worsen EMILIANA Narvaez In 1 week [facility]: [facility]/o [facility] [place] [address] [address]- Additional Instructions: An appointment request was sent to [facility]. The office will contact you with an appointment. Thank you! Ronaldo Arcos M.D, INF Within 2 to 4 weeks [address] [place] [address]- Additional Instructions: YANETH AMIN Within 2 to 4 days [address] [place] [address]- Business (1) Additional Instructions: No PCP required for surgery patient. Please follow up with ARGELIA. Thank you! Osteomyelitis, Adult Extracted from: Title:Infection Admission H&P * Author:Ronaldo Arcos M.D Date:08/15/22 Impression and Plan Diagnosis Non healing TMA site s/p 6 weeks of IV vancomycin that he clinically failed based on progression of wound.. Orders s/p revision of TMA Again on IV abx; Vanc and Zosyn. Awaiting new cultures. PVR in May RIGHT ANKLE BRACHIAL INDICES COULD NOT BE OBTAINED. I dont' know if ever evaluated by vascular further. May need PICC again. Await cultures. D/w Dr. Austin. . Extracted from: Title:CSB post op Author:Alex Goldstein MD Date:08/14/22 Plan Transfer/Discharge: Transfer/Discharge Discharge when meets criteria ( From PACU to floor ). Extracted from: Title:CSB GA Author:Alex Goldstein MD Date:08/14/22 Plan [place] [employer] Anesthesiologists (ASA) physical status classification: Class IV. Anesthetic Preoperative Plan: Anesthesia General. Extracted from: Title:SOAP Note: Podiatry Author:Ofelia Epperson DPM Date:08/13/22 Patient: MATT WATERMAN Age: 62 years Sex: Male : 1960 Associated Diagnoses: None Author: Santos Epperson DPM Subjective Chief complaint 08/13/2022 9:16 EDT Sent by wound clinic for right foot wound and right lower leg redness. c/o chills and nausea. . this dm type II s/p tma right that openned up 6 weeks ago was seen in wound care today this am then sent to the ER for admission for abscess tma thats open right and possible dvt. pt has pain erythema and increased edema piccline was just pulled last week Dr Arcos had him on 6 weeks of Vanco. pt has h/o of noncompliance with ambulation on open wound. wound vac was held and at home he has home health Health Status Allergies: Allergic Reactions (Selected) Severity Not Documented GoLYTELY- Rash. Phenergan- Shortness of breath. Reglan- Twitching and rash. Sulfa drugs- Rash. Problem list: All Problems (Selected) Anxiety / SNOMED CT 12603344 / Confirmed Aortic root dilation / SNOMED CT 962719200 / Confirmed Atrial fibrillation / SNOMED CT 97925381 / Confirmed BPH (benign prostatic hyperplasia) / SNOMED CT 878442252 / Confirmed BPH with urinary obstruction / SNOMED CT 6704498055 / Confirmed BPH without urinary obstruction / SNOMED CT 2636393775 / Confirmed Bipolar disorder / SNOMED CT 91818402 / Confirmed BMI 35.0-35.9,adult / SNOMED CT 455184355 / Confirmed CAD - Coronary artery disease / SNOMED CT 4693487610 / Confirmed Chronic anemia / SNOMED CT 102123391 / Confirmed Chronic diastolic heart failure / SNOMED CT 1814429023 / Confirmed COPD (chronic obstructive pulmonary disease) / SNOMED CT 42582250 / Confirmed COPD without exacerbation / SNOMED CT 59971852 / Confirmed Chronic systolic heart failure / SNOMED CT 8154002138 / Confirmed CHF (congestive heart failure) / SNOMED CT 57255725 / Confirmed Coronary artery disease / SNOMED CT 47180453 / Confirmed DVT (deep venous thrombosis) / SNOMED CT 899158934 / Confirmed Diabetes / SNOMED CT 504755228 / Confirmed Diabetic peripheral neuropathy / SNOMED CT 9722982511 / Confirmed DM - Diabetes mellitus / SNOMED CT 913086517 / Confirmed Flank pain / SNOMED CT 853302837 / Confirmed Chronic GERD / SNOMED CT 042241816 / Confirmed Personal history of kidney stones / SNOMED CT 5098154030 / Confirmed History of DVT in adulthood / SNOMED CT 7896872395 / Confirmed Hyperlipidemia / SNOMED CT 55185467 / Confirmed Hypertension / SNOMED CT 3801630903 / Confirmed Incomplete bladder emptying / SNOMED CT 480692584 / Confirmed Incontinence without sensory awareness / SNOMED CT 8803032349 / Confirmed Depression with anxiety / SNOMED CT 780280069 / Confirmed Morbid obesity due to excess calories / SNOMED CT 701659133 / Confirmed IN (myocardial infarction) / SNOMED CT 49502405 / Confirmed Diabetic neuropathy / SNOMED CT 0340559054 / Confirmed Nocturia / SNOMED CT 490745246 / Confirmed ROBYN on CPAP / SNOMED CT 669408774 / Confirmed Obstructive sleep apnea / SNOMED CT 479590227 / Confirmed Osteomyelitis / SNOMED CT 32804220 / Confirmed PAF (paroxysmal atrial fibrillation) / SNOMED CT 436180592 / Confirmed Urinary retention / SNOMED CT 414923747 / Confirmed Sleep apnea / SNOMED CT 670783343 / Confirmed Urgency incontinence / SNOMED CT 316485550 / Confirmed Objective vasc: erythema edema right leg and foot non dp/pt due to edema derm: open tma lateral aspect and medial communicate down and both probe to bone maceration of plantar flap of the tma msk: open tma right neuro: loss of protective sensation b/l Results Review see MRI results from this am ultrasound neg for dvt right labs no increase wbc Impression and Plan this 62 y/o male with type II dm s/p TMA from 6 weeks ago open for 4 weeks picc line was just pulled. Pt to continue with IV abx, Surgery for tomorrow as inpt for revisional TMA with delayed closure right. -npo tonight after midnight -surgery tomorrow at 1130am -discussed in great detail the risks and complications with the pt including risk of further infection and amputation loss of limb pt will f/u in wound care after surgery and will continue with home health as well Dr Ramiro Epperson agrees with above surgical plan Addendum by Ramiro Epperson DPM on August 14, 2022 11:21 EDT Agree with the above note planning izabela ional transmetatarsal amputation with incision and drainage possible delayed primary closure with skin advancement flap right discussed risk and possible complications with the patient today at bedside including pain swelling numbness to infection need for additional surgery more proximal amputation loss of limb patient fully understood all possible risk and complications and is consented for the above-stated procedure Extracted from: Title:Admission H & P Author:Noni KAISER MD te:08/13/22 This 62-year-old white male past medical history of morbid obesity, hypertension, hyperlipidemia, coronary disease, diabetes type 2, chronic diastolic heart failure, sleep apnea on CPAP, chronic COPD, depression and anxiety, history of DVT, paroxysmal A-fib, and recent Transmetatarsal amputation of the right foot with advanced closure 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 IMP 1. Foot osteomyelitis, right (M86.9: Osteomyelitis, unspecified) Inpatient admission Patient will require more than 2 nights in the hospital Blood culture Wound culture MRI Transmetatarsal amputations as discussed. Nonspecific diffuse edema-like signal involving the residual metatarsals as discussed. Differential includes reactive edema secondary to the postsurgical changes versus early osteomyelitis. Ultrasound legs no evidence of DVT Zosyn IV every 6 hours Vancomycin pharmacy to dose Podiatry consult Plan for surgery tomorrow per podiatry 2. Cellulitis, leg (L03.119: Cellulitis of unspecified part of limb) As above 3. Open wound of right foot (S91.301A: Unspecified open wound, right foot, initial encounter) As above 4. Diabetes (E11.9: Type 2 diabetes mellitus without complications) Accu-Chek ACHS Insulin sliding scale Lantus subcu 30 units twice daily Resume metformin p.o. 5. Diabetic neuropathy (E11.40: Type 2 diabetes mellitus with diabetic neuropathy, unspecified) Resume gabapentin 6. Hypertension (I10: Essential (primary) hypertension) Entresto 7. Hyperlipidemia (E78.5: Hyperlipidemia, unspecified) Resume Lipitor 8. ROBYN on CPAP (G47.33: Obstructive sleep apnea (adult) (pediatric)) CPAP 9. Morbid obesity due to excess calories (E66.01: Morbid (severe) obesity due to excess calories) Lifestyle modification 10. PAF (paroxysmal atrial fibrillation) (I48.0: Paroxysmal atrial fibrillation) Resume Coreg 11. Chronic GERD (K21.9: Gastro-esophageal reflux disease without esophagitis) PPI 12. Bipolar disorder (F31.9: Bipolar disorder, unspecified) Resume home medication 13. BPH (benign prostatic hyperplasia) (N40.0: Benign prostatic hyperplasia without lower urinary tract symptoms) Resume finasteride Extracted from: Title:ED Note Author:Jabier Martin PA-C te:08/13/22 1. Foot osteomyelitis, right (M86.9: Osteomyelitis, unspecified) 2. Cellulitis, leg (L03.119: Cellulitis of unspecified part of limb) 3. Open wound of right foot (S91.301A: Unspecified open wound, right foot, initial encounter) 4. Diabetes (E11.9: Type 2 diabetes mellitus without complications) 5. Diabetic neuropathy (E11.40: Type 2 diabetes mellitus with diabetic neuropathy, unspecified) 6. Hypertension (I10: Essential (primary) hypertension) 7. Hyperlipidemia (E78.5: Hyperlipidemia, unspecified) 8. ROBYN on CPAP (G47.33: Obstructive sleep apnea (adult) (pediatric)) 9. Morbid obesity due to excess calories (E66.01: Morbid (severe) obesity due to excess calories) 10. PAF (paroxysmal atrial fibrillation) (I48.0: Paroxysmal atrial fibrillation) 11. Chronic GERD (K21.9: Gastro-esophageal reflux disease without esophagitis) 12. Bipolar disorder (F31.9: Bipolar disorder, unspecified) 13. BPH (benign prostatic hyperplasia) (N40.0: Benign prostatic hyperplasia without lower urinary tract symptoms) 14. Depression with anxiety (F41.8: Other specified anxiety disorders) Dependence on other enabling machines and devices (Z99.89: Dependence on other enabling machines and devices) Orders: morphine, Injection, Misc, Once, Stop date 08/13/22 14:06:56 EDT, Physician Stop, 08/13/22 14:06:56 EDT morphine, 4 mg = 2 mL, Injection, IV Push, Once, Stop date 08/13/22 9:27:00 EDT, STAT, Start date 08/13/22 9:27:00 EDT, 08/13/22 9:27:00 EDT morphine, 4 mg = 2 mL, Injection, IV Push, Once, Stop date 08/13/22 12:23:00 EDT, STAT, Start date 08/13/22 12:23:00 EDT, 08/13/22 12:23:00 EDT ondansetron, 4 mg = 2 mL, Injection, IV Push, Once, Stop date 08/13/22 9:27:00 EDT, STAT, Start date 08/13/22 9:27:00 EDT, 08/13/22 9:27:00 EDT Sodium Chloride 0.9% intravenous solution, 1,000 mL, Soln-IV, IV, Once, Stop date 08/13/22 9:27:00 EDT, STAT, Start date 08/13/22 9:27:00 EDT, mL/hr, Infuse over 61, minute(s) ED Cardiac Monitoring ED Physician consult Hospitalist for continued care Extra SST Tube Lactic Acid Lactic Acid PT & PTT Troponin UA With Cult Reflex Future Appointments Appointment Date:08/27/2022 11:15:00 AM Scheduled Provider:Santos Epperson DPM Location[facility] Appointment Type:WC Follow Up Visit (FT) Appointment Date:09/02/2022 02:15:00 PM Scheduled Provider:Teddy HDZ MD Location:[facility] Appointment Type:URO Office Visit [facility]04[facility]10-2023 [facility]Gre[facility] HospitalComment on above:Result Comment: Electronically Signed By: Kennedy HARRIS MD\.br\Date and Time Signed: 08/18/22 10:32 [id number] Hospital Discharge instructions Patient Education 08/18/2022 10:30:37 Osteomyelitis, Adult Osteomyelitis, Adult Bone infections (osteomyelitis) occur when bacteria or other germs get inside a bone. This can happen if you have an infection in another part of your body that spreads through your blood. Germs fromyour skin or from outside of your body can also cause this type of infection if you have a wound ora broken bone (fracture) that breaks the skin. Bone infections need to be treated quickly to prevent bone damage and to prevent the infection fromspreading to other areas of your body. What are the causes? Most bone infections are caused by bacteria. They can also be caused by other germs, such as viruses and funguses. What increases the risk? You are more likely to develop this condition if you: Recently had surgery, especially bone or joint surgery. Have a long-term (chronic) disease, such as: ?Diabetes. ?HIV (human immunodeficiency virus). ?Rheumatoid arthritis. ?Sickle cell anemia. ?Kidney disease that requires dialysis. Are aged 60 years or older. Have a condition or take medicines that block or weaken your body's defense system (immune system). Have a condition that reduces your blood flow. Have an artificial joint. Have had a joint or bone repaired with plates or screws (surgical hardware). Use IV drugs. Have a central line for IV access. Have had trauma, such as stepping on a nail or a broken bone that came through the skin. What are the signs or symptoms? Symptoms vary depending on the type and location of your infection. Common symptoms of bone infections include: Fever and chills. Skin redness and warmth. Swelling. Pain and stiffness. Drainage of fluid or pus near the infection. How is this diagnosed? This condition may be diagnosed based on: Your symptoms and medical history. A physical exam. Tests, such as: ?A sample of tissue, fluid, or blood taken to be examined under a microscope. ?Pus or discharge swabbed from a wound for testing to identify germs and to determine what type of medicine will kill them (culture and sensitivity). ?Blood tests. Imaging studies. These may include: ?X-rays. ?MRI. ?CT scan. ?Bone scan. ?Ultrasound. How is this treated? Treatment for this condition depends on the cause and type of infection. Antibiotic medicines are usually the first treatment for a bone infection. This may be done in a hospital at first. You may have to continue IV antibiotics at home or take antibiotics by mouth for several weeks after that. Other treatments may include surgery to remove: or dying tissue from a bone. An infected artificial joint. Infected plates or screws that were used to repair a broken bone. Follow these instructions at home: Medicines Take llev-frh-etwhrks and prescription medicines only as told by your health care provider. Take your antibiotic medicine as told by your health care provider. Do not stop taking the antibiotic even if you start to feel better. Follow instructions from your health care provider about how to take IV antibiotics at home. You may need to have a nurse come to your home to give you the IV antibiotics. General instructions Ask your health care provider if you have any restrictions on your activities. If directed, put ice on the affected area: ?Put ice in a plastic bag. ?Place a towel between your skin and the bag. ?Leave the ice on for 20 minutes, 2 3 times a day. Wash your hands often with soap and water. If soap and water are not available, use hand benefit director. Do not use any products that contain nicotine or tobacco, such as cigarettes and e-cigarettes. These can delay bone healing. If you need help quitting, ask your health care provider. Keep all follow-up visits as told by your health care provider. This is important. Contact a health care provider if: You develop a fever or chills. You have redness, warmth, pain, or swelling that returns after treatment. Get help right away if: You have rapid breathing or you have trouble breathing. You have chest pain. You cannot drink fluids or make urine. The affected area swells, changes color, or turns blue. You have numbness or severe pain in the affected area. Summary Bone infections (osteomyelitis) occur when bacteria or other germs get inside a bone. You may be more likely to get this type of infection if you have a condition, such as diabetes, that lowers your ability to fight infection or increases your chances of getting an infection. Most bone infections are caused by bacteria. They can also be caused by other germs, such as viruses and funguses. Treatment for this condition usually starts with taking antibiotics. Further treatment depends on the cause and type of infection. This information is not intended to replace advice given to you by your health care provider. Make sure you discuss any questions you have with your health care provider. Document Released: 04/27/2006 Document Revised: 05/13/2018 Document Reviewed: 05/06/2018 [employer] Patient Education 2020 [employer] ( [employer] ). Follow Up Care 08/13/2022 09:09:20 With:Birgit Cordova Address: [address] [place] [address]- [employer] (1) When:1 week Comments:Call for followup appointmentCall physician if symptoms worsen With:EMILIANA Narvaez Address: [facility]: c/o [address] [place] [address]- When:Within 1 Week(s) Comments:An appointment request was sent to [facility]. The office will contact you with an appointment. Thank you! With:Ronaldo Arcos M.D, INF Address: [address] [place] [address] [place] [address]- When:2 to 4 weeks With:YANETH AMIN Address: [address] [place] [phone] Business (1) When:2 to 4 days Comments:No PCP required for surgery patient. Please follow up with ARGELIA. Thank you! [facility]04-06-2023 NoteOT order received and chart review completed. Pt is scheduled for a podiatry procedure this date d/t rt foot osteomyelitis. Will check back 08/15/22 to see if pt more appropriate for OT eval tomorrow.[facility] NoteOrder received, chart reviewed. Pt. is scheduled for revisional R TMA with delayed closure today (08/14/22) at 1130. Will perform PT evaluation as appropriate at a later date.[facility]04-05-2023 NoteJohn Grace Medical CenterComment on above: Result Comment: Electronically Signed By: THEE GILBERT, Noni\.br\Date and Time Signed: 08/13/22 13:[id number] Evaluation note* Encounter Date Diagnosis Assessment Notes Treatment Notes Treatment Clinical Notes Jul, Obstructive sleep apnea (ICD-10 - G47.33) Jul, BMI 45.0-49.9, adult (ICD-10 - Z68.42) [facility] Other 03-16-2023 Evaluation note* Encounter Date Diagnosis Assessment Notes Treatment Notes Treatment Clinical Notes Jul, Subacute osteomyelitis of right foot (ICD-10 - M86.271) Despite being on IV antibiotics the foot continues to open up and they are going to attempt a wound VAC to see if this can get the foot wound heal. Obviously if this does not show that this is helpful early on then further amputation would likely be needed. Patient only about a third to chcf through the planned 6-week treatment course. Informed patient to let me know how the wound VAC continues to work I still we will plan on stopping vancomycin at 6 weeks and less I can stop it sooner based on potential further surgical excision Jul, Receiving intravenous antibiotic treatment at home (ICD-10 - Z79.2) [facility]vive Other 02-27-2023 Evaluation note* Encounter Date Diagnosis Assessment Notes Treatment Notes Treatment Clinical Notes Jun, UTI symptoms (ICD-10 - R39.9) [facility] Other 02-21-2023 Hospital Discharge instructions Patient Education 07/01/2022 14:47:43 Wound Care, Adult Wound Care, Adult Taking care of your wound properly can help to prevent pain, infection, and scarring. It can also help your wound to heal more quickly. How to care for your wound Wound care Follow instructions from your health care provider about how to take care of your wound. Make sure you: ?Wash your hands with soap and water before you change the bandage (dressing). If soap and water are not available, use hand benefit director. ?Change your dressing as told by your health care provider. ?Leave stitches (sutures), skin glue, or adhesive strips in place. These skin closures may need to stay in place for 2 weeks or longer. If adhesive strip edges start to loosen and curl up, you may trim the loose edges. Do not remove adhesive strips completely unless your health care provider tells you to do that. Check your wound area every day for signs of infection. Check for: ?Redness, swelling, or pain. ?Fluid or blood. ?Warmth. ?Pus or a bad smell. Ask your health care provider if you should clean the wound with mild soap and water. Doing this may include: ?Using a clean towel to pat the wound dry after cleaning it. Do not rub or scrub the wound. ?Applying a cream or ointment. Do this only as told by your health care provider. ?Covering the incision with a clean dressing. Ask your health care provider when you can leave the wound uncovered. Keep the dressing dry until your health care provider says it can be removed. Do not take baths, swim, use a hot tub, or do anything that would put the wound underwater until your health care provider approves. Ask your health care provider if you can take showers. You may only be allowed to take sponge baths. Medicines If you were prescribed an antibiotic medicine, cream, or ointment, take or use the antibiotic as told by your health care provider. Do not stop taking or using the antibiotic even if your condition improves. Take piuk-ezq-oknhlsa and prescription medicines only as told by your health care provider. If you were prescribed pain medicine, take it 30 or more minutes before you do any wound care or as told byyour health care provider. General instructions Return to your normal activities as told by your health care provider. Ask your health care provider what activities are safe. Do not scratch or pick at the wound. Do not use any products that contain nicotine or tobacco, such as cigarettes and e-cigarettes. These may delay wound healing. If you need help quitting, ask your health care provider. Keep all follow-up visits as told by your health care provider. This is important. Eat a diet that includes protein, vitamin A, vitamin C, and other nutrient-rich foods to help the wound heal. ?Foods rich in protein include meat, dairy, beans, nuts, and other sources. ?Foods rich in vitamin A include carrots and dark green, leafy vegetables. ?Foods rich in vitamin C include citrus, tomatoes, and other fruits and vegetables. ?Nutrient-rich foods have protein, carbohydrates, fat, vitamins, or minerals. Eat a variety of healthy foods including vegetables, fruits, and whole grains. Contact a health care provider if: You received a tetanus shot and you have swelling, severe pain, redness, or bleeding at the injection site. Your pain is not controlled with medicine. You have redness, swelling, or pain around the wound. You have fluid or blood coming from the wound. Your wound feels warm to the touch. You have pus or a bad smell coming from the wound. You have a fever or chills. You are nauseous or you vomit. You are dizzy. Get help right away if: You have a red streak going away from your wound. The edges of the wound open up and separate. Your wound is bleeding, and the bleeding does not stop with gentle pressure. You have a rash. You faint. You have trouble breathing. Summary Always wash your hands with soap and water before changing your bandage (dressing). To help with healing, eat foods that are rich in protein, vitamin A, vitamin C, and other nutrients. Check your wound every day for signs of infection. Contact your health care provider if you suspectthat your wound is infected. This information is not intended to replace advice given to you by your health care provider. Make sure you discuss any questions you have with your health care provider. Document Released: 02/03/2009 Document Revised: 08/15/2019 Document Reviewed: 11/11/2016 Elsevier Patient Education 2020 [employer] Follow Up Care 07/01/2022 11:32:13 With:Santos Epperson Address: [facility]: c/o [address] [place] [address]- When:07/02/2022 14:41:37 [facility]02-21-2023 Evaluation + Plan noteExtracted from: Title:SOAP Note: Simple * Author:Ramiro Epperson DPM Date:07/01/22 Impression and Plan Today I applied a Betadine dressing to the area with 4 x 4's and ABDs for compression also placed the patient into a below-knee Peters compressive dressing. He was instructed to elevate recommended he discontinue the Eliquis for short period of time. Also recommended a reversal agent for the Eliquis to prevent further breakthrough bleeding he has an appointment tomorrow with wound care recommending staying in the ED for observation for a few hours with elevation. Follow-up in wound care tomorrow with Dr. Santos epperson Extracted from: Title:ED Note Author:Mirian Mark Date:06/12 06/02 Other postprocedural complic ations and disorders of digestive system (K91.89: Other postprocedural complications and disorders of digestive system) Post-operative pain (G89.18: Other acute postprocedural pain) Postoperative hemorrhage Wound dehiscence Orders: acetaminophen-oxycodone, 2 tab(s), Tab, Oral, Once, Stop date 07/01/22 14:38:00 EST, STAT, Start date 07/01/22 14:38:00 EST morphine, 4 mg = 2 mL, Injection, IV Push, Once, Stop date 07/01/22 11:52:00 EST, STAT, Start date 07/01/22 11:52:00 EST, 07/01/22 11:52:00 EST morphine, 4 mg = 2 mL, Injection, IV Push, Once, Stop date 07/01/22 13:17:00 EST, STAT, Start date 07/01/22 13:17:00 EST, 07/01/22 13:17:00 EST Automated Diff CBC w/ Auto Diff Comprehensive Metabolic Panel eGFR Extra SST Tube PT & PTT Future Appointments Appointment Date:07/02/2022 11:15:00 AM Scheduled Provider:Santos Epperson DPM Location:[facility] Appointment Type:WC Follow Up Visit (FT) [facility]02-20-2023 Evaluation note* Encounter Date Diagnosis Assessment Notes Treatment Notes Treatment Clinical Notes Jun, Primary insomnia (ICD-10 - F51.01) d/c zolpidem. discussed risk of fall with newly amputated foot and risk of car accident if driving on zolpidem. Will attempt lowest dose of new insomnia med and call with results. Jun, CHF (congestive heart failure) (ICD-10 - I50.9) Matt states he is seeing a specialist in [place] for this severe problem. Jun, Type 2 diabetes mellitus with diabetic neuropathy, unspecified (ICD-10 - E11.40) Discussed recent 3rd foot surgery with osteonecrosis. Followup w Dr. Romo for diabetes. ipvive Other 02-13-2023 Evaluation + Plan noteExtracted from: Title:Discharge Note Author:Kennedy HARRIS MD te:06/23/22 Discharged to - Home independently Discharge Status: Improved Discharge Instructions Given: To patient Discharge disposition: Home health care Prescriptions reviewed with Patient 47 Minute in discharge time talking about recurrent osteomyelitis, diabetes treatment along with possible sepsis happening and requiring IV antibiotics. Discharge Diet(s): Calorie Controlled- 2000 Calorie Diet (06/20/22 15:46:00) Prescriptions ergocalciferol 50,000 intl units Cap, 11046 International_Unit= 1 cap(s), Oral, q7day ferrous sulfate 325 mg Tab, 325 mg= 1 tab(s), Oral, TID S.A.S.(Saline, Administration of Drug, Saline), 0 tamsulosin 0.4 mg Cap, 0.4 mg= 1 cap(s), Oral, BID, 6 refills vancomycin 1 g/200 mL-NaCl 0.9% intravenous solution, 1 gm, IV, q12hr Vitamin C 500 mg Tab, 500 mg= 1 tab(s), Oral, BIDWM Home Advair 250 mcg-50 mcg Powder, 1 puff(s), Inhalation, BID Aldactone 100 mg Tab, 100 mg= 1 tab(s), Oral, Daily Ambien 10 mg Tab, 10 mg= 1 tab(s), Oral, Once a day (at bedtime), PRN aspirin 81 mg Chew Tab, 81 mg= 1 tab(s), Chewed, Daily atorvastatin 80 mg Tab, 80 mg= 1 tab(s), Oral, Daily atropine-diphenoxylate 0.025 mg-2.5 mg Tab, 1 tab(s), Oral, QID, PRN bumetanide 1 mg Tab, 3 mg= 3 tab(s), Oral, BID busPIRone 10 mg Tab, 10 mg= 1 tab(s), Oral, BID Coreg 3.125 mg Tab, 3.125 mg= 1 tab(s), Oral, BID diclofenac topical 1% gel, 1 raymon, Topical, QID, PRN divalproex sodium 250 mg Oral EC Tab, 250 mg= 1 tab(s), Oral, Bedtime divalproex sodium 500 mg Oral EC Tab, 500 mg= 1 tab(s), Oral, Daily Eliquis 5 mg oral tablet, 5 mg= 1 tab(s), Oral, BID Entresto 24 mg-26 mg oral tablet, 0.5 tab(s), Oral, BID Farxiga 10 mg oral tablet, 10 mg= 1 tab(s), Oral, Daily finasteride 5 mg Tab, 5 mg= 1 tab(s), Oral, Daily gabapentin 800 mg Tab, 800 mg= 1 tab(s), Oral, TID Humulin R (Concentrated) 500 units/mL subcutaneous solution, See Instructions isosorbide mononitrate 30 mg ER Tab, 30 mg= 1 tab(s), Oral, Daily Lantus 100 units/mL Injection-Insulin, 30 unit(s), SubCutaneous, BID Latuda 60 mg oral tablet, 60 mg= 1 tab(s), Oral, Daily metformin 500 mg Tab, 500 mg= 1 tab(s), Oral, BID Multi Vitamins oral tablet, 1 tab(s), Oral, Daily naloxone 2 mg/ 2 mL Inj Syringe, 2 mg, Nasal, As Directed Nitro 0.4 mg Tab, 1 tab(s), SubLingual, q5min, PRN oxyCODONE 5 mg Cap, 5 mg= 1 cap(s), Oral, q6hr, PRN Spiriva 18 mcg Cap, 18 mcg= 1 cap(s), Inhalation, Daily Vitamin D3 1000 intl units oral capsule, 1000 International_Unit= 1 cap(s), Oral, Daily Xtampza ER 18 mg oral capsule, extended release, 18 mg= 1 cap(s), Oral, q12hr Zofran 8 mg Tab, 8 mg= 1 tab(s), Oral, TID, PRN With When Contact Information SURAJ LLANOS 06/30/2022 02:00 PM EST [facility] [place] [address]- Business (1) Additional Instructions: Santos Epperson In 5 days 06/25/2022 EST [facility]: c/o [address] [place] [address]- Additional Instructions: Osteomyelitis, Adult Extracted from: Title:ANES Post-operative Note - General Author: Irineo Gonzalez Jr., DO Date:06/20/22 Plan Transfer/Discharge: Transfer/Discharge Discharge when meets criteria ( From PACU to Ambulatory Surgery Unit, and To home ). Extracted from: Title:Pre-anesthesia - Adult Author:Irineo Gonzalez Jr., DO Date:06/20/22 Plan [place] [employer] Anesthesiologists (ASA) physical status classification: Class IV. Anesthetic Preoperative Plan Anesthesia: General. . Anesthetic plan, risks, benefits, and alternatives discussed with the patient and/or family. Patient verbalized understanding. Adverse reactions, complications, and alternatives discujssed. Consent signed and on chart.. Extracted from: Title:Infection Admission H&P * Author:Ronaldo Arcos M.D Date:06/20/22 Impression and Plan Diagnosis Recurring Right foot imfection at amp site. Orders She had PVRs just in May and they could not obtain the right ankle-brachial index. Not sure how good the vascular supply is to this foot given the recurrence despite surgery of ongoing problems. MRI again shows findings with phlegmon/abscess and osteo-. Previous cultures were rather susceptible gram-positive's. With amputation of involved bone down to good tissue he has been treated appropriately. Now is on broad vancomycin and Zosyn. For surgery again. May consider longer course of oral versus IV antibiotics based on new culture results upon discharge given patient's history of recurrent infections at the site. Obviously if blood supply to this area is compromised healing will be another reason why he is having recurring issues. Extracted from: Title:SOAP Note: Podiatry Author:Ofelia Epperson DPM Date:06/19/22 Impression and Plan Pt admitted from ER after being seen in wound care right foot cellulitis wound s/p I&D several weeks ago to bone. Based on MRI findings discussed with the pt in great detail the best surgical outcome would be transmetatarsal amputation right foot he does not have alot of bone remaining in the first ray another Incision and drainage with bone resection is an option but not advised he has recurrent issues with blood sugars and difficulty healing. -OR tomorrow after noon -consulted ID as well culture taken in woundcare thursday -pt to be npo at midnight for surgery tomorrow Extracted from: Title:ED Note Author:Jabier Martin PA-C te:06/18/22 1. Osteomyelitis (M86.9: Ost eomyelitis, unspecified) 2. Diabetes (E11.9: Type 2 diabetes mellitus without complications) 3. Diabetic neuropathy (E11.40: Type 2 diabetes mellitus with diabetic neuropathy, unspecified) 4. COPD without exacerbation (J44.9: Chronic obstructive pulmonary disease, unspecified) 5. Morbid obesity due to excess calories (E66.01: Morbid (severe) obesity due to excess calories) 6. BPH (benign prostatic hyperplasia) (N40.0: Benign prostatic hyperplasia without lower urinary tract symptoms) 7. PAF (paroxysmal atrial fibrillation) (I48.0: Paroxysmal atrial fibrillation) 8. Chronic diastolic heart failure (I50.32: Chronic diastolic (congestive) heart failure) 9. Chronic systolic heart failure (I50.22: Chronic systolic (congestive) heart failure) 10. CAD - Coronary artery disease (I25.10: Atherosclerotic heart disease of nikolai coronary artery without angina pectoris) 11. Bipolar disorder, (F31.9: Bipolar disorder, unspecified)Bipolar mood disorder 12. Depression with anxiety (F41.8: Other specified anxiety disorders) 13. Diabetic peripheral neuropathy (E11.42: Type 2 diabetes mellitus with diabetic polyneuropathy) 14. Hyperlipidemia (E78.5: Hyperlipidemia, unspecified) 15. Hypertension (I10: Essential (primary) hypertension) 16. Obstructive sleep apnea (G47.33: Obstructive sleep apnea (adult) (pediatric)) Orders: HYDROmorphone, 0.5 mg = 0.5 mL, Injection, IV Push, Once, Stop date 06/18/22 15:21:00 EST, STAT, Start date 06/18/22 15:21:00 EST, 06/18/22 15:21:00 EST morphine, 4 mg = 2 mL, Injection, IV Push, Once, Stop date 06/18/22 13:37:00 EST, STAT, Start date 06/18/22 13:37:00 EST, 06/18/22 13:37:00 EST ondansetron, 4 mg = 2 mL, Injection, IV Push, Once, Stop date 06/18/22 13:37:00 EST, STAT, Start date 06/18/22 13:37:00 EST, 06/18/22 13:37:00 EST piperacillin-tazobactam + Sodium Chloride 0.9% intravenous solution 50 mL, 3.375 gm = 1 EA, IV Piggyback, q6hrFT, STAT, Start date 06/18/22 14:27:00 EST, 100 mL/hr, Infuse over 30 minute(s), 06/18/22 14:27:00 EST Sodium Chloride 0.9% intravenous solution, 1,000 mL, Soln-IV, IV, Once, Stop date 06/18/22 13:37:00 EST, STAT, Start date 06/18/22 13:37:00 EST, mL/hr, Infuse over 61, minute(s) vancomycin + Generic Diluent 400 mL, 2,000 mg = 400 mL, Soln-IV, IV Piggyback, Once, Stop date 06/18/22 15:00:00 EST, Start date 06/18/22 15:00:00 EST, 200 mL/hr, Infuse over 2 hour(s) Automated Diff Blood Culture Charcoal Blood Culture Charcoal CBC w/ Auto Diff Comprehensive Metabolic Panel ECG 12 Lead Adult ED Cardiac Monitoring ED Physician consult Hospitalist for continued care eGFR Extra SST Tube Ferritin Iron Level Lactic Acid Lactic Acid MRI Foot w/o Contrast Right PT & PTT Sedimentation Rate Automated TIBC Calculated Troponin UA With Cult Reflex XR Chest Single View XR Foot 3+ Views Right Extracted from: Title:Admission H & P Author:Fareed GILBERT, Laz Date:06/18/22 61 y/o M w/mhx most sig for DM and Afib on Eliquis, admitted for osteomyelitis noted on MRI 06/18/22 w/failed out patient treatment. Assessment/Plan Osteomyelitis -Noted on MRI on 06/18/22 -Please obtain intraoperative would clx to follow and assist w/antibiotic selection, pt informs me that he was informed by podiatry that he may undergo operative procedure on 06/20/22. He had Eliquis which needs to be held. He also was on Levaquin out patient and FAILD out patient treatment of above -Podiatry -ID -Vitamin C -Vancomycin day 1 -Zosyn day 1 Diabetes: Chronic, kcal limited DM diet, glargine 7 units BID (adjust PRN), sliding scale w/lispro DM nephropathy: Chronic, gabapentin Paroxysmal Atrial fibrillation: Continue w/Coreg, hold Eliquis for procedure resume after procedure CAD: Chronic, no chest pain, telemetry, Aspirin, Lipitor, Coreg Chronic systolic and diastolic heart failure: Chronic, no s/s of decompensation, Coreg, Imdur, Entresto, Aldactone, Bumex, follow BMP and Mg HTN: Chronic, above will help, monitor BP Chronic Anemia: Likely multifactorial, check iron studies Stage IV coccygeal ulcer: Wound care COPD: No s/s of exacerbation, I/S, duo nebs PRN ROBYN: BiPAP qHS and PRN Obesity: Patient's BMI >30. Lifestyle modifications encouraged. Obesity is a pro-inflammatory state likely affecting above medical processes. Outpatient follow up. Hyperlipidemia: Statin Anxiety: Med rec + home meds Bipolar: Resume home medications for anxiety and bipolar BPH:Resume home medications Code: DNR CCA/DNI Diet: KCAL restricted DM diet DVT prophylaxis: Eliquis was for Afib, holding, high risk for DVT, Lovenox 40mg BID 2/2 to BMI >40, start tomorrow, last does should be night before surgery Family: Bedside and updated Admit: InPatient, likely >2 midnight stay osteomyelitis, failed out patient treatment, needs IV antibiotics Time: 75 minutes : Plan: Plan was discussed with patient and family (if applicable) at bedside. Will start on empiric antibiotics, await cultures then narrow antibiotics. Orders: albuterol-ipratropium, 3 mL, Soln-Inh, Inhalation, QID PRN Shortness of breath or wheezing, Routine, Start date 06/18/22 16:32:00 EST ascorbic acid, 500 mg = 1 tab(s), Tab, Oral, Daily, Routine, Start date 06/19/22 9:00:00 EST enoxaparin, 40 mg = 0.4 mL, Injection, SubCutaneous, q12hr for 30 day(s), Stop date 07/19/22 7:59:00 EST, Routine, Start date 06/19/22 8:00:00 EST, 06/19/22 8:00:00 EST glucose, 50 mL, Soln-IV, IV Push, Once PRN Blood glucose, Routine, Start date 06/18/22 15:49:00 EST insulin glargine, 7 unit(s) = 0.07 mL, Injection-Insulin, SubCutaneous, BID, Routine, Start date 06/18/22 21:00:00 EST insulin lispro, 0-10 Units, Injection-Insulin, SubCutaneous, QIDACHS, Routine, Start date 06/18/22 16:30:00 EST vancomycin, PHARMACY TO DOSE, Injection, IV, As Directed, Routine, Start date 06/18/22 15:55:00 EST vancomycin + Generic Diluent 300 mL, 1,500 mg = 300 mL, Soln-IV, IV Piggyback, q12hr for 10 day(s), Stop date 06/29/22 2:59:00 EST, Start date 06/19/22 3:00:00 EST, 200 mL/hr, Infuse over 90 minute(s) Basic Metabolic Panel Bi-level Positive Airway Pressure Cardiac Monitoring Communication Order Physician to Nursing Communication Order Physician to Nursing Communication Order Physician to Nursing Consult to Dietitian Adult Consult to Infectious Disease 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 Consult to Wound Care Diabetic/Calorie Control Diet Hypoglycemia Protocol Responsive Patient Hypoglycemia Protocol Unresponsive Patient Incentive Spirometry Magnesium Level Occupational Therapy Evaluate Patient, Develop a Plan of Care and Implement Plan Physical Therapy Evaluate Patient, Develop a Plan of Care and Implement Plan Place in Status Resuscitation Status - DNR CCA (Comfort Care Arrest) Routine Capillary Glucose POC Up ad Marge Vancomycin Level Peak Vancomycin Level Trough Vital Signs Weight Future Appointments Appointment Date:06/25/2022 10:15:00 AM Scheduled Provider:Santos Epperson DPM Location:[facility] Appointment Type: Follow Up Visit (FT) Diagnostic Tests Pending * Vancomycin Level Trough 06/25/22 [facility]Fisher [facility] CenterComment on above:Result Comment: Electronically Signed By: KIMBERLY GILBERT, Kennedy Herrera\.br\Date and Time Signed: 06/23/22 10:54 [id number] Hospital Discharge instructions Patient Education 06/23/2022 10:53:40 Osteomyelitis, Adult Osteomyelitis, Adult Bone infections (osteomyelitis) occur when bacteria or other germs get inside a bone. This can happen if you have an infection in another part of your body that spreads through your blood. Germs fromyour skin or from outside of your body can also cause this type of infection if you have a wound ora broken bone (fracture) that breaks the skin. Bone infections need to be treated quickly to prevent bone damage and to prevent the infection fromspreading to other areas of your body. What are the causes? Most bone infections are caused by bacteria. They can also be caused by other germs, such as viruses and funguses. What increases the risk? You are more likely to develop this condition if you: Recently had surgery, especially bone or joint surgery. Have a long-term (chronic) disease, such as: ?Diabetes. ?HIV (human immunodeficiency virus). ?Rheumatoid arthritis. ?Sickle cell anemia. ?Kidney disease that requires dialysis. Are aged 60 years or older. Have a condition or take medicines that block or weaken your body's defense system (immune system). Have a condition that reduces your blood flow. Have an artificial joint. Have had a joint or bone repaired with plates or screws (surgical hardware). Use IV drugs. Have a central line for IV access. Have had trauma, such as stepping on a nail or a broken bone that came through the skin. What are the signs or symptoms? Symptoms vary depending on the type and location of your infection. Common symptoms of bone infections include: Fever and chills. Skin redness and warmth. Swelling. Pain and stiffness. Drainage of fluid or pus near the infection. How is this diagnosed? This condition may be diagnosed based on: Your symptoms and medical history. A physical exam. Tests, such as: ?A sample of tissue, fluid, or blood taken to be examined under a microscope. ?Pus or discharge swabbed from a wound for testing to identify germs and to determine what type of medicine will kill them (culture and sensitivity). ?Blood tests. Imaging studies. These may include: ?X-rays. ?MRI. ?CT scan. ?Bone scan. ?Ultrasound. How is this treated? Treatment for this condition depends on the cause and type of infection. Antibiotic medicines are usually the first treatment for a bone infection. This may be done in a hospital at first. You may have to continue IV antibiotics at home or take antibiotics by mouth for several weeks after that. Other treatments may include surgery to remove: or dying tissue from a bone. An infected artificial joint. Infected plates or screws that were used to repair a broken bone. Follow these instructions at home: Medicines Take kber-qvl-ynjskei and prescription medicines only as told by your health care provider. Take your antibiotic medicine as told by your health care provider. Do not stop taking the antibiotic even if you start to feel better. Follow instructions from your health care provider about how to take IV antibiotics at home. You may need to have a nurse come to your home to give you the IV antibiotics. General instructions Ask your health care provider if you have any restrictions on your activities. If directed, put ice on the affected area: ?Put ice in a plastic bag. ?Place a towel between your skin and the bag. ?Leave the ice on for 20 minutes, 2 3 times a day. Wash your hands often with soap and water. If soap and water are not available, use hand benefit director. Do not use any products that contain nicotine or tobacco, such as cigarettes and e-cigarettes. These can delay bone healing. If you need help quitting, ask your health care provider. Keep all follow-up visits as told by your health care provider. This is important. Contact a health care provider if: You develop a fever or chills. You have redness, warmth, pain, or swelling that returns after treatment. Get help right away if: You have rapid breathing or you have trouble breathing. You have chest pain. You cannot drink fluids or make urine. The affected area swells, changes color, or turns blue. You have numbness or severe pain in the affected area. Summary Bone infections (osteomyelitis) occur when bacteria or other germs get inside a bone. You may be more likely to get this type of infection if you have a condition, such as diabetes, that lowers your ability to fight infection or increases your chances of getting an infection. Most bone infections are caused by bacteria. They can also be caused by other germs, such as viruses and funguses. Treatment for this condition usually starts with taking antibiotics. Further treatment depends on the cause and type of infection. This information is not intended to replace advice given to you by your health care provider. Make sure you discuss any questions you have with your health care provider. Document Released: 04/27/2006 Document Revised: 05/13/2018 Document Reviewed: 05/06/2018 [employer] Patient Education 2020 [employer] ( [employer] ). Follow Up Care 06/18/2022 12:44:22 With:Ronaldo Arcos Address: [address] [place], [place] [address] [place] [address]- Business (1) When:2 to 4 weeks Comments:Unable to contact office via phone or fax. Please call to schedule followup appointment. With:Santos Epperson Address: [facility]: c/o [address] [place] [address]- When:06/25/2022 10:15:00 With:SURAJ LLANOS Address: [address] [place] [phone]- Business (1) When:06/30/2022 14:00:00 [facility]02-11-2023 NotePT evaluation completed. Recommend daily PT while in acute care to practice transfers with rollator, bed mobility, and improve mobility. CGA for bed mobility and scooting, min assist for stand pivot from bed to chair NWB R LE this date. [facility]02-10-2023 NotePt admit 06/18/22 d/t osteomyelitis of 1st metatarsal. Pt undergoing podiatry procedure 06/20/22. Will check back 06/21/22 for eval pending weightbearing status clarification.[facility]02-10-2023 NoteAttempted PT Evaluation, but pt scheduled to have surgery this date. Will Hold and [facility] 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 Reviewed medications. Stable but no improvement seen.. May, Osteomyelitis (ICD-10 - M86.9) Further care with John Cui. Reviewed notes from Dr. Arcos while in hospital. Presently on Levaquin with home health care. May, Neuropathy involving both lower extremities (ICD-10 - G57.93) Again unsafe to walk distances significant knee pain decreased sensation in legs. Would benefit from a scooter in the home. May, Type 2 diabetes mellitus with diabetic neuropathy, unspecified (ICD-10 - E11.40) ipvive Other 12-09-2022 Evaluation + Plan noteExtracted from: Title:Discharge Note Author:María CORTEZ MD Date: 04/18/22 Discharge To, Anticipated II - Home with responsible caregiver Discharged to - Home independently Transported by, Anticipated - Family Discharge Diet(s): Calorie Controlled- 1800 Calorie Diet, Fat Modified- Low cholesterol, Low Sodium- 2000 mg (04/18/22 08:21:00) Prescriptions Augmentin 875 mg oral tablet, 1 tab(s), Oral, q12hr doxycycline hyclate 100 mg Cap, 100 mg= 1 cap(s), Oral, BID finasteride 5 mg Tab, 5 mg= 1 tab(s), Oral, Daily, 3 refills tamsulosin 0.4 mg Cap, 0.4 mg= 1 cap(s), Oral, BID, 6 refills Home Advair 250 mcg-50 mcg Powder, 1 puff(s), Inhalation, BID Aldactone 100 mg Tab, 100 mg= 1 tab(s), Oral, Daily Ambien 10 mg Tab, 10 mg= 1 tab(s), Oral, Once a day (at bedtime), PRN aspirin 81 mg Chew Tab, 81 mg= 1 tab(s), Chewed, Daily atorvastatin 80 mg Tab, 80 mg= 1 tab(s), Oral, Daily Bariatric Multivitamins with 45 mg Iron oral capsule, 1 cap(s), Oral, TID bumetanide 1 mg Tab, 3 mg= 3 tab(s), Oral, BID busPIRone 10 mg Tab, 10 mg= 1 tab(s), Oral, BID carvedilol 25 mg Tab, 25 mg= 1 tab(s), Oral, BID, Not taking Coreg 3.125 mg Tab, 3.125 mg= 1 tab(s), Oral, BID diclofenac divalproex sodium 500 mg Oral EC Tab, 1000 mg= 2 tab(s), Oral, Daily Eliquis 5 mg oral tablet, 5 mg= 1 tab(s), Oral, BID Entresto 24 mg-26 mg oral tablet, 1 tab(s), Oral, BID Farxiga 10 mg oral tablet, 10 mg= 1 tab(s), Oral, Daily finasteride 5 mg Tab, 5 mg= 1 tab(s), Oral, Daily gabapentin 800 mg Tab, 800 mg= 1 tab(s), Oral, TID Humulin R (Concentrated) 500 units/mL subcutaneous solution, See Instructions isosorbide mononitrate 30 mg ER Tab, 30 mg= 1 tab(s), Oral, Daily Lantus 100 units/mL Injection-Insulin, 30 unit(s), SubCutaneous, BID Latuda 20 mg oral tablet, 20 mg= 1 tab(s), Oral, Daily Lomotil metformin 1000 mg Tab, 1000 mg= 1 tab(s), Oral, BID Nexium, 40 mg, Oral, BID Nitro 0.4 mg Tab, 1 tab(s), SubLingual, q5min, PRN oxyCODONE 5 mg Cap, 5 mg= 1 cap(s), Oral, q6hr Spiriva 18 mcg Cap, 18 mcg= 1 cap(s), Inhalation, Daily Vitamin D3 1000 intl units oral capsule, 1000 International_Unit= 1 cap(s), Oral, Daily Xtampza ER 18 mg oral capsule, extended release, 18 mg= 1 cap(s), Oral, q12hr Xtampza ER 18 mg oral capsule, extended release, 18 mg= 1 cap(s), Oral, q12hr Zofran 8 mg Tab, 8 mg= 1 tab(s), Oral, TID With When Contact Information Ramiro Epperson 04/16/2022 12:00 AM EST [facility] - [facility] [address] [place] [address]- Business (1) [facility]: c/o [facility] [address] [place] [address]- 0 Business (1) Additional Instructions: Ernst Almendarez Within 1 to 2 weeks [address] [place] [address]- Business (1) Additional Instructions: SURAJ LLANOS Within 3 to 5 days [facility] [place] [address]- Business (1) Additional Instructions: [employer] - Post Operative Instructions (Revised 01/05/14) (Custom) Extracted from: Title:APSO Note Author:María CORTEZ MD Date: 1. Acute on chronic systolic heart failure (I50.23: Acute on chronic systolic (congestive) heart failure) - strict I and O, daily weight - bumex 2 mg IV bid - fludi status improving - aldactone - coreg - reviewed and agree with cardiology recs 2. Cellulitis of both lower extremities (L03.115: Cellulitis of right lower limb) - vancomycin and zosyn - reviewed and agree with ID recs 3. Diabetic infection of right foot (E11.628: Type 2 diabetes mellitus with other skin complications) - with right great toe osteomyelitis - blood cultures NGT - vancomycin and zosyn - POD #1 s/p amputation of right great toe, Amputation right first metatarsal head, and Incision and drainage of right foot deep abscess - reviewed and agree with ID recs 4. Hyponatremia (E87.1: Hypo-osmolality and hyponatremia) - secondary to hypervolemic hyponatremia with fluid overload - monitor with diuresis, Na increased 5. Hypertension (I10: Essential (primary) hypertension) - coreg, entresto 6. Diabetes (E11.9: Type 2 diabetes mellitus without complications) - lantus, SSI - hold metformin 7. Hyperlipidemia (E78.5: Hyperlipidemia, unspecified) - atorvastatin 8. Coronary artery disease (I25.10: Atherosclerotic heart disease of nikolai coronary artery without angina pectoris) - coreg, statin 9. PAF (paroxysmal atrial fibrillation) (I48.0: Paroxysmal atrial fibrillation) - coreg, eliquis (held) 10. History of DVT in adulthood (Z86.718: Personal history of other venous thrombosis and embolism) - eliquis - held as per podiatry 11. Depression with anxiety (F41.8: Other specified anxiety disorders) - home meds 12. BPH without urinary obstruction (N40.0: Benign prostatic hyperplasia without lower urinary tract symptoms) - finasteride 13. Morbid obesity due to excess calories (E66.01: Morbid (severe) obesity due to excess calories) - BMI greater than 40 - lifestyle modification, outpatient PCP follow up 14. COPD without exacerbation (J44.9: Chronic obstructive pulmonary disease, unspecified) - albuterol prn 15. Chronic GERD (K21.9: Gastro-esophageal reflux disease without esophagitis) - protonix 16. Diabetic peripheral neuropathy (E11.42: Type 2 diabetes mellitus with diabetic polyneuropathy) - gabapentin 17. No contraindication to deep vein thrombosis (DVT) prophylaxis (Z78.9: Other specified health status) - SCDs. eliquis held as per podiatry Orders: amoxicillin-clavulanate, = 1 tab(s), Oral, q12hr, X 10 day(s), # 20 tab(s), Refills(s) 0, Pharmacy: [facility], 180, cm, 04/14/22 11:50:00 EST, Height/Length Dosing, 135.5, kg, 04/14/22 11:50:00 EST, Weight Dosing doxycycline, 100 mg = 1 cap(s), Oral, BID, X 10 day(s), # 20 cap(s), Refills(s) 0, Pharmacy: [facility], 180, cm, 04/14/22 11:50:00 EST, Height/Length Dosing, 135.5, kg, 04/14/22 11:50:00 EST, Weight Dosing Capillary Glucose POC Capillary Glucose POC Capillary Glucose POC Capillary Glucose POC Discharge Patient Physical Therapy Additional Tx Physical Therapy Evaluate Patient, Develop a Plan of Care and Implement Plan Vancomycin Level Peak Extracted from: Title:SOAP Note: Simple * Author:Ramiro Epperson DPM Date:04/17/22 Impression and Plan Today I applied a dry sterile dressing to the amputation site. Flaps appear to be viable. I applied a Peters compressive dressing I enforced with the patient the need for nonweightbearing and to keep his foot elevated at all times. Spoke with Dr. Moran was planning to hold the patient's Eliquis for short period of time I concurred. We will follow-up with me at the wound care center once discharged Extracted from: Title:DOUGLAS POSTOP Author:Jeffrey Butcher DO Date: 04/16/22 Plan Transfer/ Discharge: Patient can be discharged from PACU when criteria met. Condition good. Extracted from: Title:DOUGLAS PREOP Author:Jeffrey Butcher DO Date:06/17/21 Plan [place] [employer] Anesthesiologists (ASA) physical status classification: Class IV. Anesthetic Preoperative Plan Anesthesia: General. , Monitored anesthesia care. Anesthetic plan, risks, benefits, and alternatives discussed with the patient and/or family. Patient verbalized understanding. Anesthesia risks, benefits, alternatives discussed with patient and/or family/guardians. Risks discussed including but not limited to risks of nerve damage, injury, bleeding requiring transfusion, postop pulmonary complications, nausea, vomiting, sore throat, dental/oral injury, increase/decrease in HR or blood pressure, hoarseness, muscle or joint pain, heart complications discussed. Pt aware and desires to proceed. Extracted from: Title:APSO Note Author:María CORTEZ MD Date: 1. Acute on chronic systolic heart failure (I50.23: Acute on chronic systolic (congestive) heart failure) - strict I and O, daily weight - bumex 2 mg IV bid - diurese still fluid overloaded - negative 2500 cc over 24 hours - aldactone - coreg - echo - reviewed and agree with cardiology recs 2. Cellulitis of both lower extremities (L03.115: Cellulitis of right lower limb) - vancomycin and zosyn - reviewed and agree with ID recs 3. Diabetic infection of right foot (E11.628: Type 2 diabetes mellitus with other skin complications) - with right great toe osteomyelitis - blood cultures NGT - vancomycin and zosyn - reviewed and agree with ID recs - OR today with Dr. Epperson for amputation 4. Hyponatremia (E87.1: Hypo-osmolality and hyponatremia) - secondary to hypervolemic hyponatremia with fluid overload - monitor with diuresis, Na increased 5. Hypertension (I10: Essential (primary) hypertension) - coreg entresto 6. Diabetes (E11.9: Type 2 diabetes mellitus without complications) - lantus, SSI - hold metformin 7. Hyperlipidemia (E78.5: Hyperlipidemia, unspecified) - atorvastatin 8. Coronary artery disease (I25.10: Atherosclerotic heart disease of nikolai coronary artery without angina pectoris) - coreg, statin 9. PAF (paroxysmal atrial fibrillation) (I48.0: Paroxysmal atrial fibrillation) - coreg, eliquis 10. History of DVT in adulthood (Z86.718: Personal history of other venous thrombosis and embolism) - eliquis 11. Depression with anxiety (F41.8: Other specified anxiety disorders) - home meds 12. BPH without urinary obstruction (N40.0: Benign prostatic hyperplasia without lower urinary tract symptoms) - finasteride 13. Morbid obesity due to excess calories (E66.01: Morbid (severe) obesity due to excess calories) - BMI greater than 40 - lifestyle modification, outpatient PCP follow up 14. COPD without exacerbation (J44.9: Chronic obstructive pulmonary disease, unspecified) - albuterol prn 15. Chronic GERD (K21.9: Gastro-esophageal reflux disease without esophagitis) - protonix 16. Diabetic peripheral neuropathy (E11.42: Type 2 diabetes mellitus with diabetic polyneuropathy) - gabapentin 17. No contraindication to deep vein thrombosis (DVT) prophylaxis (Z78.9: Other specified health status) - SCDs. eliquis Orders: perflutren, 1.3 mL, Injection, IV Push, Once, Stop date 04/15/22 16:00:00 EST, Routine, Start date 04/15/22 16:00:00 EST Basic Metabolic Panel Capillary Glucose POC Capillary Glucose POC Capillary Glucose POC Capillary Glucose POC Cardiac Diet Echo Transthoracic w/ Contrast eGFR Extra Lav Tube Magnesium Level Occupational Therapy Evaluate Patient, Develop a Plan of Care and Implement Plan Oxygen Protocol Vancomycin Level Peak Extracted from: Title:Consult Note Author:Tanesha GILBERT, Melvina Barrera Date:04/15/22 61-year-old male with histor y of PAF hypertension hyperlipidemia CAD and chronic systolic heart failure comes in with CHF exacerbation. Recommend IV diuretics as you are doing, continue beta-shayan Eliquis Entresto not certain patient appears to be on Entresto and losartan which would not be necessary. Would recommend Discontinuation of losartan which I will do. We will continue to follow with you awaiting echo results. 1. Acute on chronic systolic heart failure (I50.23: Acute on chronic systolic (congestive) heart failure) 2. Cellulitis of both lower extremities (L03.115: Cellulitis of right lower limb) 3. Diabetic infection of right foot (E11.628: Type 2 diabetes mellitus with other skin complications) 4. Hyponatremia (E87.1: Hypo-osmolality and hyponatremia) 5. Hypertension (I10: Essential (primary) hypertension) 6. Diabetes (E11.9: Type 2 diabetes mellitus without complications) 7. Hyperlipidemia (E78.5: Hyperlipidemia, unspecified) 8. Coronary artery disease (I25.10: Atherosclerotic heart disease of nikolai coronary artery without angina pectoris) 9. PAF (paroxysmal atrial fibrillation) (I48.0: Paroxysmal atrial fibrillation) 10. History of DVT in adulthood (Z86.718: Personal history of other venous thrombosis and embolism) 11. Depression with anxiety (F41.8: Other specified anxiety disorders) 12. BPH without urinary obstruction (N40.0: Benign prostatic hyperplasia without lower urinary tract symptoms) 13. Morbid obesity due to excess calories (E66.01: Morbid (severe) obesity due to excess calories) 14. COPD without exacerbation (J44.9: Chronic obstructive pulmonary disease, unspecified) 15. Chronic GERD (K21.9: Gastro-esophageal reflux disease without esophagitis) 16. Diabetic peripheral neuropathy (E11.42: Type 2 diabetes mellitus with diabetic polyneuropathy) 17. No contraindication to deep vein thrombosis (DVT) prophylaxis (Z78.9: Other specified health status) Extracted from: Title:Infection Admission H&P * Author:Ronaldo Arcos M.D Date:04/15/22 Impression and Plan Diagnosis Hallux osteomyelitis RLE cellulitis vs stasis dermatitis vs BOTH. Orders Maintain broad abx iv. Surgery tomorrow with amputation. Should not need prolonged course given amputation assuming clean margins His RLE skin is warm/hot but appears more c/w stasis derm. Apply topical steroid cream for a few days. Leg elevated stressed. . Extracted from: Title:Podiatric surgery Author:Ramiro Epperson DPM Date:04/15/22 Impression and Plan Patient is osteomyelitis of the right great toe. Nonhealing ulceration to the level of bone recommending an amputation of the great toe possible metatarsal head deep culture and sensitivity to be performed intraoperatively. This is an attempt at limb salvage the patient understood this. Discussed possible risk of complications including pain swelling numbness ting infection need for additional surgery recurrence of the condition development of complex regional pain syndrome DVT. Loss of limb patient fully list of hospitals and complications surgery will be tomorrow at 530 he will be n.p.o. at 7 AM. Extracted from: Title:APSO Note Author:María CORTEZ MD Date: 1. Acute on chronic systolic heart failure (I50.23: Acute on chronic systolic (congestive) heart failure) - strict I and O, daily weight - bumex 2 mg IV bid - diurese still fluid overloaded - aldactone - coreg, losartan - echo - consult [facility] cardiology Ordered: 2. Cellulitis of both lower extremities (L03.115: Cellulitis of right lower limb) - vancomycin and zosyn - ID consult 3. Diabetic infection of right foot (E11.628: Type 2 diabetes mellitus with other skin complications) - blood and wound culture - ?chronic osteomyelitis - xray right foot -vancomycin and zosyn - consult podiatry and ID 4. Hyponatremia (E87.1: Hypo-osmolality and hyponatremia) - secondary to hypervolemic hyponatremia with fluid overload - monitor with diuresis, slowly increasing 5. Hypertension (I10: Essential (primary) hypertension) - coreg, losartan 6. Diabetes (E11.9: Type 2 diabetes mellitus without complications) - lantus, SSI - hold metformin 7. Hyperlipidemia (E78.5: Hyperlipidemia, unspecified) - atorvastatin 8. Coronary artery disease (I25.10: Atherosclerotic heart disease of nikolai coronary artery without angina pectoris) - coreg, losartan, statin 9. PAF (paroxysmal atrial fibrillation) (I48.0: Paroxysmal atrial fibrillation) - coreg, eliquis 10. History of DVT in adulthood (Z86.718: Personal history of other venous thrombosis and embolism) - eliquis 11. Depression with anxiety (F41.8: Other specified anxiety disorders) - home meds when confirmed 12. BPH without urinary obstruction (N40.0: Benign prostatic hyperplasia without lower urinary tract symptoms) - finasteride 13. Morbid obesity due to excess calories (E66.01: Morbid (severe) obesity due to excess calories) - BMI greater than 40 - lifestyle modification, outpatient PCP follow up 14. COPD without exacerbation (J44.9: Chronic obstructive pulmonary disease, unspecified) - albuterol prn 15. Chronic GERD (K21.9: Gastro-esophageal reflux disease without esophagitis) - protonix 16. Diabetic peripheral neuropathy (E11.42: Type 2 diabetes mellitus with diabetic polyneuropathy) - gabapentin 17. No contraindication to deep vein thrombosis (DVT) prophylaxis (Z78.9: Other specified health status) - SCDs. eliquis Orders: acetaminophen, 650 mg = 2 tab(s), Tab, Oral, q6hr PRN Pain, Routine, Start date 04/14/22 15:51:00 EST, 04/14/22 15:51:00 EST acetaminophen-hydrocodone, 1 tab(s), Tab, Oral, q6hr PRN Pain for 5 day(s), Stop date 04/19/22 15:53:00 EST, Routine, Start date 04/14/22 15:54:00 EST Al hydroxide/Mg hydroxide/simethicone, 30 mL, Susp-Oral, Oral, q6hr PRN Indigestion, Routine, Start date 04/14/22 15:51:00 EST bumetanide, 2 mg = 8 mL, Injection, IV Push, BID, Routine, Start date 04/14/22 17:00:00 EST, 04/14/22 15:54:00 EST glucose, 50 mL, Soln-IV, IV Push, Once PRN Blood glucose, Routine, Start date 04/14/22 15:55:00 EST insulin lispro, 0-10 Units, Injection-Insulin, SubCutaneous, QIDACHS, Routine, Start date 04/14/22 16:30:00 EST magnesium hydroxide, 30 mL, Susp-Oral, Oral, q6hr PRN Constipation, Routine, Start date 04/14/22 15:51:00 EST ondansetron, 4 mg = 2 mL, Injection, IV Push, q6hr PRN Nausea, Routine, Start date 04/14/22 15:51:00 EST, 04/14/22 15:51:00 EST piperacillin-tazobactam + Sodium Chloride 0.9% intravenous solution 50 mL, 4.5 gm = 1 EA, Injection, IV Piggyback, q6hrFT for 10 day(s), Stop date 04/24/22 21:59:00 EST, Routine, Start date 04/14/22 22:00:00 EST, 100 mL/hr, Infuse over 30 minute(s) Sodium Chloride 0.9% intravenous solution, Soln-IV, Misc, Once, Stop date 04/14/22 21:09:08 EST, Physician Stop, 04/14/22 21:09:08 EST Sodium Chloride 0.9% intravenous solution 500 mL, 500 mL, IV, 20 mL/hr, Other (see comment), Routine, Start date 04/14/22 21:05:00 EST, 25 hour(s), Total volume (mL): 500, 135.5 kg, 2.6, m2 vancomycin, PHARMACY TO DOSE, Injection, IV, As Directed, Routine, Start date 04/14/22 15:52:00 EST vancomycin + Generic Diluent 400 mL, 2,000 mg = 400 mL, Soln-IV, IV Piggyback, q12hr for 10 day(s), Stop date 04/25/22 1:59:00 EST, Start date 04/15/22 2:00:00 EST, 200 mL/hr, Infuse over 2 hour(s) Ambulate with Assistance Automated Diff Basic Metabolic Panel Below the Knee Intermittent Pneumatic Compression Device Bi-level Positive Airway Pressure Capillary Glucose POC Capillary Glucose POC Capillary Glucose POC Cardiac Diet Cardiac Monitoring CBC w/ Auto Diff Consult to Cardiology Consult to Infectious Disease Physician 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 Consult to Wound Care Echo Transthoracic Complete Education Heart Failure eGFR Evaluate Need For Continued Telemetry Heart Failure Quality Measures Hypoglycemia Protocol Responsive Patient Hypoglycemia Protocol Unresponsive Patient Incentive Spirometry Intake and Output Lipid Panel Notify Provider Vital Signs Notify Provider Vital Signs Occupational Therapy Evaluate Patient, Develop a Plan of Care and Implement Plan Physical Therapy Evaluate Patient, Develop a Plan of Care and Implement Plan Place in Status Pulse Oximetry Routine Capillary Glucose POC Vancomycin Level Peak Vancomycin Level Trough Vital Signs Weight XR Foot 3+ Views Right Extracted from: Title:Admission H & P Author:María CORTEZ MD Date :04/14/22 1. Acute on chronic systolic heart failure (I50.23: Acute on chronic systolic (congestive) heart failure) - telemetry, troponin - strict I and O, daily weight - bumex 2 mg IV bid - aldactone - coreg, losartan - echo - consult [facility] cardiology 2. Cellulitis of both lower extremities (L03.115: Cellulitis of right lower limb) - vancomycin and zosyn - ID consult 3. Diabetic infection of right foot (E11.628: Type 2 diabetes mellitus with other skin complications) - blood and wound culture - ?chronic osteomyelitis - xray right foot -vancomycin and zosyn - consult podiatry and ID 4. Hyponatremia (E87.1: Hypo-osmolality and hyponatremia) - secondary to hypervolemic hyponatremia with fluid overload - monitor with diuresis 5. Hypertension (I10: Essential (primary) hypertension) - coreg, losartan 6. Diabetes (E11.9: Type 2 diabetes mellitus without complications) - lantus, SSI - hold metformin 7. Hyperlipidemia (E78.5: Hyperlipidemia, unspecified) - atorvastatin 8. Coronary artery disease (I25.10: Atherosclerotic heart disease of nikolai coronary artery without angina pectoris) - coreg, losartan, statin 9. PAF (paroxysmal atrial fibrillation) (I48.0: Paroxysmal atrial fibrillation) - coreg, eliquis 10. History of DVT in adulthood (Z86.718: Personal history of other venous thrombosis and embolism) - eliquis 11. Depression with anxiety (F41.8: Other specified anxiety disorders) - home meds when confimred 12. BPH without urinary obstruction (N40.0: Benign prostatic hyperplasia without lower urinary tract symptoms) - finasteride 13. Morbid obesity due to excess calories (E66.01: Morbid (severe) obesity due to excess calories) - BMI greater than 40 - lifestyle modification, outpatient PCP follow up 14. COPD without exacerbation (J44.9: Chronic obstructive pulmonary disease, unspecified) - albuterol prn 15. Chronic GERD (K21.9: Gastro-esophageal reflux disease without esophagitis) - protonix 16. Diabetic peripheral neuropathy (E11.42: Type 2 diabetes mellitus with diabetic polyneuropathy) - gabapentin 17. No contraindication to deep vein thrombosis (DVT) prophylaxis (Z78.9: Other specified health status) - SCDs. eliquis pt will require greater than 2 midnights stay for above Orders: acetaminophen, 650 mg = 2 tab(s), Tab, Oral, q6hr PRN Pain, Routine, Start date 04/14/22 15:51:00 EST, 04/14/22 15:51:00 EST acetaminophen-hydrocodone, 1 tab(s), Tab, Oral, q6hr PRN Pain for 5 day(s), Stop date 04/19/22 15:53:00 EST, Routine, Start date 04/14/22 15:54:00 EST Al hydroxide/Mg hydroxide/simethicone, 30 mL, Susp-Oral, Oral, q6hr PRN Indigestion, Routine, Start date 04/14/22 15:51:00 EST bumetanide, 2 mg = 8 mL, Injection, IV Push, BID, Routine, Start date 04/14/22 17:00:00 EST, 04/14/22 15:54:00 EST glucose, 50 mL, Soln-IV, IV Push, Once PRN Blood glucose, Routine, Start date 04/14/22 15:55:00 EST insulin lispro, 0-10 Units, Injection-Insulin, SubCutaneous, QIDACHS, Routine, Start date 04/14/22 16:30:00 EST magnesium hydroxide, 30 mL, Susp-Oral, Oral, q6hr PRN Constipation, Routine, Start date 04/14/22 15:51:00 EST ondansetron, 4 mg = 2 mL, Injection, IV Push, q6hr PRN Nausea, Routine, Start date 04/14/22 15:51:00 EST, 04/14/22 15:51:00 EST piperacillin-tazobactam + Sodium Chloride 0.9% intravenous solution 50 mL, 4.5 gm = 1 EA, Injection, IV Piggyback, q6hr for 10 day(s), Stop date 04/24/22 19:59:00 EST, Routine, Start date 04/14/22 20:00:00 EST, 100 mL/hr, Infuse over 30 minute(s) vancomycin, PHARMACY TO DOSE, Injection, IV, As Directed, Routine, Start date 04/14/22 15:52:00 EST Ambulate with Assistance Basic Metabolic Panel Below the Knee Intermittent Pneumatic Compression Device Cardiac Diet Cardiac Monitoring CBC w/ Auto Diff Consult to Cardiology Consult to Infectious Disease Physician 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 Echo Transthoracic Complete Education Heart Failure Evaluate Need For Continued Telemetry Heart Failure Quality Measures Hypoglycemia Protocol Responsive Patient Hypoglycemia Protocol Unresponsive Patient Incentive Spirometry Intake and Output Lipid Panel Notify Provider Vital Signs Notify Provider Vital Signs Occupational Therapy Evaluate Patient, Develop a Plan of Care and Implement Plan Oxygen Protocol Physical Therapy Evaluate Patient, Develop a Plan of Care and Implement Plan Place in Status Pulse Oximetry Routine Capillary Glucose POC Vital Signs Weight XR Foot 3+ Views Right Extracted from: Title:ED Note Author:Mark Vela DO Date:04/14/22 CHF exacerbation (I50.9: Hea rt failure, unspecified) Dyspnea (R06.00: Dyspnea, unspecified) Lower extremity cellulitis (L03.119: Cellulitis of unspecified part of limb) Orders: morphine, 4 mg = 2 mL, Injection, IV Push, Once, Stop date 04/14/22 11:59:00 EST, STAT, Start date 04/14/22 11:59:00 EST, 04/14/22 11:59:00 EST ondansetron, 4 mg = 2 mL, Injection, IV Push, Once, Stop date 04/14/22 11:59:00 EST, STAT, Start date 04/14/22 11:59:00 EST, 04/14/22 11:59:00 EST piperacillin-tazobactam + Sodium Chloride 0.9% intravenous solution 50 mL, 3.375 gram = 1 EA, IV Piggyback, Once, Stop date 04/14/22 13:07:00 EST, STAT, Start date 04/14/22 13:07:00 EST, 100 mL/hr, Infuse over 30 minute(s), 04/14/22 13:07:00 EST vancomycin + Generic Diluent 300 mL, Reason for Vancomycin: Chronic wound care or dialysis, 1,500 mg = 300 mL, IV Piggyback, Once, Stop date 04/14/22 14:00:00 EST, Routine, Start date 04/14/22 14:00:00 EST, Infuse over 90 minute(s) Automated Diff B-Type Natriuretic Peptide Basic Metabolic Panel Blood Culture Charcoal Blood Culture Charcoal CBC w/ Auto Diff ED Cardiac Monitoring ED Physician consult Hospitalist for continued care eGFR Extra SST Tube Lactic Acid Lactic Acid Oxygen Saturation Oxygen Therapy PT & PTT Saline Lock Insert Troponin 0 Hr. Troponin 3 Hr. Troponin 6 Hr. Troponin 9 Hr. XR Chest Single View [facility]12-07-2022 Hospital Discharge instructions Patient Education 04/16/2022 18:31:08 [place] - Post Operative Instructions (Revised 01/05/14) (Custom) [place], [place] Ramiro Epperson DPM, FACFAS POST OPERATIVE INSTRUCTIONS Keep bandage clean and dry and DO NOT REMOVE Keep foot elevated on white foam pillow Apply cryocuff to top of ankle, one hour on one hour off, until first office visit Non weight bearing on operative foot. Take pain medications as directed Do not be alarmed if you notice slight bleeding on the bandage, this is normal Report any increase in swelling to Dr. Epperson immediately Resume regular diet. Call the office if you develop: persistent bleeding temperature above 100 degrees persistent vomiting calf pain or shortness of breath redness or pus at operative site Call the office tomorrow for 1st post-operative dressing change appointment. If you have any problems or questions, feel free to call the doctor at: [phone] or [phone] Epperson paged. Patient signatureDate Dr. Ramiro Epperson DPM, FACFASDate Revised: 208 Follow Up Care 04/14/2022 11:43:04 With:Ernst Almendarez Address: [address] [place] [id number]- Business (1) When:1 to 2 weeks With:SURAJ LLANOS Address: [facility] [place] [address]- Business (1) When:3 to 5 days With:Ramiro Epperson Address: [facility] [place] [address] [place] [address]- 0 Business (1) [facility]: c/o [address] [place] [address]- 0 Business (1) When:04/16/2022 [facility]10-03-2022 Evaluation note* Encounter Date Diagnosis Assessment Notes Treatment Notes Treatment Clinical Notes Feb, Major depressive disorder, recurrent episode, moderate (ICD-10 - F33.1) [facility]ive [facility] + Plan noteExtracted from: Title:Discharge Note Author:Fareed GILBERT, Laz Silva ate:12/02/21 Discharged to - Home with family care Prescriptions finasteride 5 mg Tab, 5 mg= 1 tab(s), Oral, Daily, 3 refills tamsulosin 0.4 mg Cap, 0.4 mg= 1 cap(s), Oral, BID, 11 refills Home Advair 250 mcg-50 mcg Powder, 1 puff(s), Inhalation, BID, Not taking Aldactone 100 mg Tab, 100 mg= 1 tab(s), Oral, Daily Ambien 10 mg Tab, 10 mg= 1 tab(s), Oral, Once a day (at bedtime), PRN ammonium lactate Top 12% Crm, Topical, BID, Not taking atorvastatin 80 mg Tab, 80 mg= 1 tab(s), Oral, Daily Bariatric Multivitamins with 45 mg Iron oral capsule, 1 cap(s), Oral, TID, Still taking, not as prescribed: Taking once daily bumetanide 2 mg Tab, 2 mg= 1 tab(s), Oral, BID carvedilol 25 mg Tab, 25 mg= 1 tab(s), Oral, BID, Still taking, not as prescribed: taking 3.125 po bid clindamycin 300 mg oral cap, 300 mg= 1 cap(s), Oral, TID, Not taking Depakote ER 500 mg Tab-ER, 1000 mg= 2 tab(s), Oral, Daily doxycycline hyclate 100 mg Cap, 100 mg= 1 cap(s), Oral, BID Eliquis 5 mg oral tablet, 10 mg= 2 tab(s), Oral, BID, Not taking Eliquis 5 mg oral tablet, 5 mg= 1 tab(s), Oral, BID gabapentin 800 mg Tab, 800 mg= 1 tab(s), Oral, TID Humulin R (Concentrated) 500 units/mL subcutaneous solution, See Instructions, Not taking isosorbide mononitrate 30 mg ER Tab, 30 mg= 1 tab(s), Oral, Daily Lantus 100 units/mL Injection-Insulin, 30 unit(s), SubCutaneous, BID, Still taking, not as prescribed: Taking 20 units at night levofloxacin 500 mg Tab, 500 mg= 1 tab(s), Oral, q24hr, Not taking losartan 100 mg Tab, 100 mg= 1 tab(s), Oral, Daily magnesium oxide 400 mg Tab, 400 mg= 1 tab(s), Oral, TID, Not taking metformin 1000 mg Tab, 1000 mg= 1 tab(s), Oral, BID, Not taking Nexium, 40 mg, Oral, BID, Not taking Nitro 0.4 mg Tab, 1 tab(s), SubLingual, q5min, PRN oxcarbazepine 150 mg Tab, 150 mg= 1 tab(s), Oral, Daily, Not taking oxyCODONE 5 mg Cap, 5 mg= 1 cap(s), Oral, q6hr, Still taking, not as prescribed: Taking oxycodone 5mg TID OxyCONTIN 20 mg Tab-ER, 20 mg= 1 tab(s), Oral, q12hr potassium chloride 10 mEq ER Tab, 60 mEq= 6 tab(s), Oral, BID, Not taking Spiriva 18 mcg Cap, 18 mcg= 1 cap(s), Inhalation, Daily terazosin 5 mg Cap, 5 mg= 1 cap(s), Oral, Once a day (at bedtime), Not taking Trintellix 20 mg oral tablet, 20 mg= 1 tab(s), Oral, Daily Vistaril 50 mg Cap, 50 mg= 1 cap(s), Oral, TID, Still taking, not as prescribed: taking 25mg po tid Vitamin D3 1000 intl units oral capsule, 1000 International_Unit= 1 cap(s), Oral, Daily Wellbutrin SR 100 mg Tab-ER, 100 mg= 1 tab(s), Oral, Daily, Not taking Zofran 8 mg Tab, 8 mg= 1 tab(s), Oral, TID No qualifying data available Extracted from: Title:Progress/SOAP Note Author:Omid Kumari MD Date:12/02/21 1. Cellulitis (L03.90: Cellu litis, unspecified) 2. Diabetic foot ulcers (E11.621: Type 2 diabetes mellitus with foot ulcer) 3. Coronary artery disease (I25.10: Atherosclerotic heart disease of nikolai coronary artery without angina pectoris) 4. Chronic systolic heart failure (I50.22: Chronic systolic (congestive) heart failure) Patient has chronic congestive heart failure by physical exam and history. We attempted to diurese the patient to assist with his congestive heart failure with IV Bumex drip and p.o. metolazone. Patient had aggressive response with more than 8600 cc of fluid out overnight with symptomatic feeling of fatigue. Have recommended discontinuation of Bumex drip and holding his metolazone for now. We will let him gently rehydrate to assist with his intravascular dehydration. Most of his symptoms are related to his lower extremity. We are awaiting records from his primary overhead foreman. No plan for cardiac catheterization at this time. Patient apparently had a catheterization 1 year ago and was told his stents were open and that he required no additional therapy. Patient is unable to lay down flat for additional cardiac catheterization when he was admitted. Patient sitting in a chair currently, with no acute distress. Patient may continue his spironolactone, and will resume his Bumex p.o. tomorrow morning. In addition would recommend obtaining a 2D echo with Doppler so that we can assess his LV function and have a record of it for ourselves. He will continue Eliquis therapy for paroxysmal atrial fibrillation and pulmonary hypertension. Recommend increasing Imdur to 30 mg p.o. twice daily to assist with hypertension. We will hold off on his Coreg for now given his acute on chronic heart failure and restarted at half dose tomorrow 12.5 mg p.o. twice daily. Would recommend aggressive antibiotic therapy and wound clinic consultation for his left lower extremity cellulitis. 5. Paroxysmal atrial fibrillation (I48.0: Paroxysmal atrial fibrillation) 6. History of DVT in adulthood (Z86.718: Personal history of other venous thrombosis and embolism) 7. COPD without exacerbation (J44.9: Chronic obstructive pulmonary disease, unspecified) 8. Obstructive sleep apnea (G47.33: Obstructive sleep apnea (adult) (pediatric)) 9. Chronic anemia (D64.9: Anemia, unspecified) 10. Diabetes (E11.9: Type 2 diabetes mellitus without complications) 11. Chronic kidney disease (N18.9: Chronic kidney disease, unspecified) 12. BPH (benign prostatic hyperplasia) (N40.0: Benign prostatic hyperplasia without lower urinary tract symptoms) 13. Depression (F32.A: Depression, unspecified) 14. Hyperlipidemia (E78.5: Hyperlipidemia, unspecified) 15. Chronic osteomyelitis (M86.60: Other chronic osteomyelitis, unspecified site) 16. Morbid obesity (E66.01: Morbid (severe) obesity due to excess calories) Orders: Communication Order Physician to Nursing Echo Transthoracic Complete Extracted from: Title:Podiatric surgery Author:Ramiro Epperson DPM Date:12/01/21 Impression and Plan Explained to the patient overall concern is the development of osteomyelitis in the right great toe. As well as a cellulitis to his left lower extremity which appears to be improving. This most likely is secondary to his severe venous stasis disease as well. PVRs have been ordered to assess distal perfusion. MRI pending probable osteomyelitis of the right great toe he may require amputation pending the results of the MRI. Continue local wound care as well as IV antibiotics until results are back. Educated the patient on the clinical findings as well as our game plan for his treatment of his lower extremity issues. Extracted from: Title:APSO Note Author:Kennedy HARRIS MD Date: 61-year-old male with past m edical history of morbid obesity, diabetes mellitus, peripheral vascular disease, CAD, hypertension, hyperlipidemia, history of CABG, history of gastric bypass surgery, ROBYN on CPAP, chronic osteomyelitis presented to emergency department due to leg pain and swelling. Patient was found to have acute on chronic systolic congestive heart failure along with lower extremity cellulitis causing his symptoms. 1. Cellulitis (L03.90: Cellulitis, unspecified) We will continue with Vanco and Zosyn that was previously started Will do MRI of the forefoot just to make sure there is no significant infection Podiatry consult Follow-up culture result Patient likely needs more diuresis rather than any other issues 2. Diabetic foot ulcers (E11.621: Type 2 diabetes mellitus with foot ulcer) MRI is ordered Imaging results from the x-rays noted Podiatry consult Pain control 3. Coronary artery disease (I25.10: Atherosclerotic heart disease of nikolai coronary artery without angina pectoris) Continue patient on Eliquis, isosorbide Holding losartan to prevent hypotension Ordered: Consult to Cardiology 4. Chronic systolic heart failure (I50.22: Chronic systolic (congestive) heart failure) Acute on chronic systolic congestive heart failure on admission Strict I's and O's Daily weight Diuretics as ordered with Bumex drip and metolazone Monitor electrolytes and kidney function very closely Keep magnesium greater than 2 and potassium greater than 4 Cardiology consultation Keep potassium greater than 4 and magnesium greater than 2 with active diuresis chf Ordered: Consult to Cardiology 5. Paroxysmal atrial fibrillation (I48.0: Paroxysmal atrial fibrillation) Continue with Eliquis Telemetry Ordered: Consult to Cardiology 6. History of DVT in adulthood (Z86.718: Personal history of other venous thrombosis and embolism) Eliquis 7. COPD without exacerbation (J44.9: Chronic obstructive pulmonary disease, unspecified) Breathing treatment as needed 8. Obstructive sleep apnea (G47.33: Obstructive sleep apnea (adult) (pediatric)) Continue with nocturnal noninvasive ventilation from home 9. Chronic anemia (D64.9: Anemia, unspecified) Stable Monitor daily 10. Diabetes (E11.9: Type 2 diabetes mellitus without complications) Accu-Chek with sliding scale insulin 11. Chronic kidney disease (N18.9: Chronic kidney disease, unspecified) Stable Monitor with diuresis 12. BPH (benign prostatic hyperplasia) (N40.0: Benign prostatic hyperplasia without lower urinary tract symptoms) Finasteride, Flomax 13. Depression (F32.A: Depression, unspecified) Depakote, gabapentin 14. Hyperlipidemia (E78.5: Hyperlipidemia, unspecified) Atorvastatin 15. Chronic osteomyelitis (M86.60: Other chronic osteomyelitis, unspecified site) Currently on Vanco and Zosyn Appreciate podiatry input 16. Morbid obesity (E66.01: Morbid (severe) obesity due to excess calories) Lifestyle modification Orders: albuterol-ipratropium, 3 mL, Soln-Inh, Inhalation, QID PRN Shortness of breath or wheezing, Routine, Start date 12/01/21 9:01:00 EDT oxycodone, 5 mg = 1 tab(s), Tab, Oral, q6hr PRN Pain 4-7 for 5 day(s), Stop date 12/06/21 7:54:00 EDT, Routine, Start date 12/01/21 7:55:00 EDT, 12/01/21 7:55:00 EDT Basic Metabolic Panel CBC w/ Auto Diff 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 Hepatic Function Panel Magnesium Level MRI Foot w/o Contrast Left MRI Foot w/o Contrast Right Plan discussed with patient at bedside This report was transcribed using voice recognition software. Every effort was made to ensure accuracy, however, inadvertently computerized waste transportation technician mistakes may be present. Dr. Kennedy Hraris Hospitalist at [facility] Extracted from: Title:Consult Note Author:Jin Kumari MD te:12/01/21 1. Cellulitis (L03.90: Cellu litis, unspecified) 2. Diabetic foot ulcers (E11.621: Type 2 diabetes mellitus with foot ulcer) 3. Coronary artery disease (I25.10: Atherosclerotic heart disease of nikolai coronary artery without angina pectoris) Patient is had several episodes of substernal chest pressure mostly at rest, with known history of ischemic cardiomyopathy. As best I can tell his EF was 39% in the past but all of his cardiac studies have been at [facility]. Recommend we obtain those records from his recent catheterization and preferably his Catheterization films so that I may review it. In the meantime he will continue baby aspirin, Coreg, losartan. We will discontinue his Bumex for now and start him on a Bumex drip at 0.5 mg/h to assist with IV fluid removal. In addition we will give him metolazone 2.5 mg x 1 now followed by metolazone every Thursday and Thursday going forward. He will continue his Imdur for pulmonary vasodilatation and afterload reduction as well. Patient will require a 1500 cc fluid restriction as well. I recommended the patient undergo a 2D echo with Doppler so that we can establish his LV function, pulmonary pressures and valvular status. No indication for diagnostic coronary angiogram at this time, particularly since he just had one about a year ago and was told of his stents were all open. Recommend keeping his potassium above 4.0 magnesium above 2.0 particularly during this IV diuretic phase of his care. Would recommend wound clinic consultation to assist with his cellulitis as he has had difficulty clearing this since July 2021. Thank you very much for the opportunity to participate in the cardiac care of your patient. Consultation time took place between 8 AM and 8:30 AM. 4. Chronic systolic heart failure (I50.22: Chronic systolic (congestive) heart failure) 5. Paroxysmal atrial fibrillation (I48.0: Paroxysmal atrial fibrillation) Continue Eliquis therapy. The patient appears to be in sinus rhythm by physical exam and EKG. 6. History of DVT in adulthood (Z86.718: Personal history of other venous thrombosis and embolism) 7. COPD without exacerbation (J44.9: Chronic obstructive pulmonary disease, unspecified) 8. Obstructive sleep apnea (G47.33: Obstructive sleep apnea (adult) (pediatric)) 9. Chronic anemia (D64.9: Anemia, unspecified) 10. Diabetes (E11.9: Type 2 diabetes mellitus without complications) 11. Chronic kidney disease (N18.9: Chronic kidney disease, unspecified) 12. BPH (benign prostatic hyperplasia) (N40.0: Benign prostatic hyperplasia without lower urinary tract symptoms) 13. Depression (F32.A: Depression, unspecified) 14. Hyperlipidemia (E78.5: Hyperlipidemia, unspecified) 15. Chronic osteomyelitis (M86.60: Other chronic osteomyelitis, unspecified site) 16. Morbid obesity (E66.01: Morbid (severe) obesity due to excess calories) Orders: bumetanide 10 mg [0.5 mg/hr] + Sodium Chloride 0.9% intravenous solution 100 mL, 100 mL, IV, 5 mL/hr, Routine, Start date 12/01/21 8:16:00 EDT, 20 hour(s), Total volume (mL): 100, 0.5-2 mg/hr, Titrate per protocol, 145 kg, 2.69, m2 metolazone, 2.5 mg = 1 tab(s), Tab, Oral, MonWedFri, Routine, Start date 12/02/21 18:00:00 EDT, First dose now., 12/01/21 8:17:00 EDT Communication Order Physician to Nursing Echo Transthoracic Complete Extracted from: Title:Admission H & P Author:Henri MORAN DO Date:11/30/21 1. Cellulitis (L03.90: Cellu litis, unspecified) Patient with cellulitis of the left lower extremity a bogginess to the left heel though I do not see an open wound does appear white ?need I&D. Patient states it was from this heel that he saw a chunk of tissue a few days prior to fill of his foot that he described as being necrotic. He does admit to drainage states it is clear. Patient also with with mild erythema of the right great toe, which patient states is chronic (as noted below patient is being treated for chronic osteomyelitis) along with ulceration without any drainage or necrotic tissue in the plantar aspect of his right great toe. Patient states he had a temperature a few evenings prior of 102 degrees but per his present labs and vitals does not qualify as septic. With significant erythema warmth tenderness he is at significant risk of the very soon becoming septic. We will therefore treat aggressively with Zosyn and vancomycin. Obtain blood cultures. Obtained wound cultures. With history below we will attempt to balance pain control with avoiding suppression of respiratory drive several comorbidities below. We will consult with podiatry note patient did state that his overhead foreman at [facility] has in the past discouraged him from having any significant surgery due to his cardiovascular morbidities. Ordered: piperacillin-tazobactam + Sodium Chloride 0.9% intravenous solution 50 mL, 3.375 gm = 1 EA, IV Piggyback, q6hrFT, Routine, Start date 12/01/21 5:00:00 EDT, 100 mL/hr, Infuse over 30 minute(s), 12/01/21 5:00:00 EDT vancomycin, PHARMACY TO DOSE, Injection, IV, As Directed, Routine, Start date 12/01/21 1:36:00 EDT C-Reactive Protein 2. Diabetic foot ulcers (E11.621: Type 2 diabetes mellitus with foot ulcer) As described above patient does have bogginess of the left heel, there is a large ulcer without any drainage on the plantar aspect of his right great toe that he suggest its chronic. Note he has being treated for chronic osteomyelitis with doxycycline. Get the opinion of podiatry 3. Coronary artery disease (I25.10: Atherosclerotic heart disease of nikolai coronary artery without angina pectoris) Patient eats he has had percutaneous interventions in the past. His last intervention was 2 years prior describes having angioplasty. He suggested he was not a candidate for further intervention and implied it was not because of his cardiac anatomy but because of below and inability to lie supine for diagnostic studies. Patient did state he had chest discomfort last evening that awoken him from sleep as he had the night prior ordinarily has discomfort only on a monthly basis. We will consult John Cui cardiology to assist us with managing patient's coronary artery disease. Patient states he had chest pain last evening as well as the evening prior indicating that ordinarily will have chest pain with a frequency of monthly. Question if this represents instability of his coronary artery disease versus increased cardiac stress i.e. demand due to significant infectious process. Patient had 1 isolated troponin as his chest pain was several hours prior feel this will suffice for now. We will also ask cardiology to assist with volume management she is at risk for volume overload as we treat above with his chronic kidney disease would be at risk for diminished renal function. Would also ask for their opinion regarding procedural interventions that would be recommended by podiatry for above as he has been deemed in the past patient's own history to be high risk and we will ask for records from [facility] and from his overhead foreman Dr. Sylvester Ordered: Communication Order Physician to Nursing Consult to Cardiology 4. Chronic systolic heart failure (I50.22: Chronic systolic (congestive) heart failure) Patient has chronic orthopnea. Patient implies his overhead foreman from [facility] had recently intensified his diuretic therapy giving him metolazone and he is actually lost weight. No clear history of progressive dyspnea. We will avoid administering and if can fluids for above that we will otherwise would consider. Patient states his last known ejection fraction was 39%. We will access outside records. Meanwhile continue his losartan, Bumex, Aldactone and Coreg Ordered: Communication Order Physician to Nursing Consult to Cardiology 5. Paroxysmal atrial fibrillation (I48.0: Paroxysmal atrial fibrillation) Patient is on anticoagulation for below Ordered: Consult to Cardiology 6. History of DVT in adulthood (Z86.718: Personal history of other venous thrombosis and embolism) Patient implies has had more than 1 event 8 years ago he had a [place] filter. He is on Eliquis which we will continue for now pending above evaluation. Note patient is anemic it appears to be stable we will monitor for continued stability 7. COPD without exacerbation (J44.9: Chronic obstructive pulmonary disease, unspecified) Continue Spiriva 8. Obstructive sleep apnea (G47.33: Obstructive sleep apnea (adult) (pediatric)) Use home CPAP Ordered: May use own CPAP machine as per home 9. Chronic anemia (D64.9: Anemia, unspecified) hemoglobin appears to be stable on the anticoagulants we will continue to observe for continued stability. 10. Diabetes (E11.9: Type 2 diabetes mellitus without complications) Continue Lantus, use Humalog sliding scale. Check hemoglobin A1c. Place patient on diabetic diet until seen by surgery. If low risk intervention for above is pursued can then determine patient's p.o. status 11. Chronic kidney disease (N18.9: Chronic kidney disease, unspecified) States he is followed by parimutuel ticket seller at [facility] states he has chronic kidney disease stage III. Will observe for any decline in renal function which he be at risk for with above 12. BPH (benign prostatic hyperplasia) (N40.0: Benign prostatic hyperplasia without lower urinary tract symptoms) Flomax, Proscar patient has had a prior history of urine retention last seen by Dr. Hdz in July 13. Depression (F32.A: Depression, unspecified) Continue Depakote 14. Hyperlipidemia (E78.5: Hyperlipidemia, unspecified) Continue statin therapy 15. Chronic osteomyelitis (M86.60: Other chronic osteomyelitis, unspecified site) Patient describes this involving both his coccyx and the digits of his lower extremities. We will hold doxycycline as for now he will be on Vanco and Zosyn 16. Morbid obesity (E66.01: Morbid (severe) obesity due to excess calories) Patient did have greater than 120 pounds lost when he had gastric bypass surgery 4 years ago. Orders: acetaminophen, 650 mg = 2 tab(s), Tab, Oral, q6hr PRN Pain, Routine, Start date 12/01/21 1:40:00 EDT, 12/01/21 1:40:00 EDT apixaban, 5 mg = 1 tab(s), Tab, Oral, BID, Routine, Start date 11/30/21 22:54:00 EDT, 11/30/21 22:54:00 EDT atorvastatin, 80 mg = 2 tab(s), Tab, Oral, Bedtime, Routine, Start date 12/01/21 21:00:00 EDT, 11/30/21 22:55:00 EDT bumetanide, 2 mg = 2 tab(s), Tab, Oral, BID, Routine, Start date 12/01/21 9:00:00 EDT, 11/30/21 22:34:00 EDT divalproex sodium, 500 mg = 1 tab(s), Tab-EC, Oral, Daily, Routine, Start date 12/01/21 9:00:00 EDT, 11/30/21 22:39:00 EDT divalproex sodium, 1,000 mg = 2 tab(s), Tab-ER, Oral, Bedtime, Routine, Start date 11/30/21 22:35:00 EDT, 11/30/21 22:35:00 EDT finasteride, 5 mg = 1 tab(s), Tab, Oral, Daily, Routine, Start date 12/01/21 9:00:00 EDT, 11/30/21 22:35:00 EDT gabapentin, 800 mg = 1 tab(s), Tab, Oral, TID, Routine, Start date 12/01/21 8:00:00 EDT, 11/30/21 22:35:00 EDT glucose, 50 mL, Soln-IV, IV Push, Once PRN Blood glucose, Routine, Start date 12/01/21 1:41:00 EDT hydrALAZINE, 10 mg = 0.5 mL, Injection, IV Push, q6hr PRN Other (see comment), Routine, Start date 12/01/21 1:40:00 EDT, 12/01/21 1:40:00 EDT HYDROmorphone, 0.5 mg = 0.5 mL, Injection, IV Push, q4hr PRN Pain, Routine, Start date 11/30/21 23:01:00 EDT, 11/30/21 23:01:00 EDT insulin glargine, 20 unit(s) = 0.2 mL, Injection-Insulin, SubCutaneous, BID, Routine, Start date 11/30/21 22:36:00 EDT insulin lispro, 0-10 Units, Injection-Insulin, SubCutaneous, QIDACHS, Routine, Start date 12/01/21 7:30:00 EDT isosorbide mononitrate, 30 mg = 1 tab(s), Tab-ER, Oral, Daily, Routine, Start date 12/01/21 9:00:00 EDT, 11/30/21 22:37:00 EDT losartan, 100 mg = 2 tab(s), Tab, Oral, Daily, Routine, Start date 12/01/21 9:00:00 EDT, 11/30/21 22:37:00 EDT ondansetron, 4 mg = 2 mL, Injection, IV Push, q6hr PRN Nausea, Routine, Start date 12/01/21 1:40:00 EDT, 12/01/21 1:40:00 EDT oxycodone, 20 mg = 1 tab(s), Tab-ER, Oral, q12hr, Routine, Start date 11/30/21 23:00:00 EDT, 11/30/21 22:58:00 EDT oxycodone, 5 mg = 1 tab(s), Tab, Oral, q4hr for 5 day(s), Stop date 12/05/21 22:59:00 EDT, Routine, Start date 11/30/21 23:00:00 EDT, 11/30/21 23:00:00 EDT Sodium Chloride 0.9% intravenous solution 1,000 mL, 1,000 mL, IV, 30 mL/hr, Routine, Start date 12/01/21 1:40:00 EDT, 33.3 hour(s), Total volume (mL): 1,000, 123 kg, 2.48, m2 spironolactone, 100 mg = 2 tab(s), Tab, Oral, Daily, Routine, Start date 12/01/21 9:00:00 EDT, 11/30/21 22:37:00 EDT tamsulosin, 0.4 mg = 1 cap(s), Cap, Oral, BID, Routine, Start date 12/01/21 9:00:00 EDT, 11/30/21 22:38:00 EDT tiotropium, 5 mcg = 2 inh, Aerosol, Inhalation, Daily, Routine, Start date 12/01/21 9:00:00 EDT, 11/30/21 22:38:00 EDT zolpidem, 10 mg = 2 tab(s), Tab, Oral, Once a day (at bedtime) PRN Sleep, Routine, Start date 11/30/21 22:58:00 EDT, 11/30/21 22:58:00 EDT Basic Metabolic Panel Cardiac Monitoring CBC w/ Auto Diff 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 Diabetic/Calorie Control Diet Elevate Head of Bed Hypoglycemia Protocol Responsive Patient Hypoglycemia Protocol Unresponsive Patient May use own CPAP machine as per home Notify Provider Vital Signs Notify Provider Vital Signs Oxygen Protocol Place in Status Resuscitation Status - DNR CCA (Comfort Care Arrest) Routine Capillary Glucose POC TSH With T4fr Reflex Vital Signs Weight Patient is admitted as general inpatient with the anticipation who require greater than 2 midnight stay. Patient openly discussed his desire to be a DO NOT RESUSCITATE Comfort Care arrest. He did state I am tired of fighting was agreeable to above plan. [facility] Discharge instructions Patient Education 08/01/2021 09:02:00 Benign Prostatic Hyperplasia Benign Prostatic Hyperplasia Benign prostatic hyperplasia (BPH) is an enlarged prostate gland that is caused by the normal agingprocess and not by cancer. The prostate is a walnut-sized gland that is involved in the production of semen. It is located in front of the rectum and below the bladder. The bladder stores urine and the urethra is the tube that carries the urine out of the body. The prostate may get bigger as a man gets older. An enlarged prostate can press on the urethra. This can make it harder to pass urine. The build-up of urine in the bladder can cause infection. Back pressure and infection may progress to bladder damage and kidney (renal) failure. What are the causes? This condition is part of a normal aging process. However, not all men develop problems from this condition. If the prostate enlarges away from the urethra, urine flow will not be blocked. If it enlarges toward the urethra and compresses it, there will be problems passing urine. What increases the risk? This condition is more likely to develop in men over the age of 50 years. What are the signs or symptoms? Symptoms of this condition include: Getting up often during the night to urinate. Needing to urinate frequently during the day. Difficulty starting urine flow. Decrease in size and strength of your urine stream. Leaking (dribbling) after urinating. Inability to pass urine. This needs immediate treatment. Inability to completely empty your bladder. Pain when you pass urine. This is more common if there is also an infection. Urinary tract infection (UTI). How is this diagnosed? This condition is diagnosed based on your medical history, a physical exam, and your symptoms. Tests will also be done, such as: A post-void bladder scan. This measures any amount of urine that may remain in your bladder after you finish urinating. A digital rectal exam. In a rectal exam, your health care provider checks your prostate by putting a lubricated, gloved finger into your rectum to feel the back of your prostate gland. This exam detects the size of your gland and any abnormal lumps or growths. An exam of your urine (urinalysis). A prostate specific antigen (PSA) screening. This is a blood test used to screen for prostate cancer. An ultrasound. This test uses sound waves to electronically produce a picture of your prostate gland. Your health care provider may refer you to a specialist in kidney and prostate diseases (urologist). How is this treated? Once symptoms begin, your health care provider will monitor your condition (active surveillance or watchful waiting). Treatment for this condition will depend on the severity of your condition. Treatment may include: Observation and yearly exams. This may be the only treatment needed if your condition and symptoms are mild. Medicines to relieve your symptoms, including: ?Medicines to shrink the prostate. ?Medicines to relax the muscle of the prostate. Surgery in severe cases. Surgery may include: ?Prostatectomy. In this procedure, the prostate tissue is removed completely through an open incision or with a laparoscope or robotics. ?Transurethral resection of the prostate (TURP). In this procedure, a tool is inserted through the opening at the tip of the penis (urethra). It is used to cut away tissue of the inner core of the prostate. The pieces are removed through the same opening of the penis. This removes the blockage. ?Transurethral incision (TUIP). In this procedure, small cuts are made in the prostate. This lessens the prostate's pressure on the urethra. ?Transurethral microwave thermotherapy (TUMT). This procedure uses microwaves to create heat. The heat destroys and removes a small amount of prostate tissue. ?Transurethral needle ablation (TUNA). This procedure uses radio frequencies to destroy and remove a small amount of prostate tissue. ?Interstitial laser coagulation (ILC). This procedure uses a laser to destroy and remove a small amount of prostate tissue. ?Transurethral electrovaporization (TUVP). This procedure uses electrodes to destroy and remove a small amount of prostate tissue. ?Prostatic urethral lift. This procedure inserts an implant to push the lobes of the prostate away from the urethra. Follow these instructions at home: Take [id number] and prescription medicines only as told by your health care provider. Monitor your symptoms for any changes. Contact your health care provider with any changes. Avoid drinking large amounts of liquid before going to bed or out in public. Avoid or reduce how much caffeine or alcohol you drink. Give yourself time when you urinate. Keep all follow-up visits as told by your health care provider. This is important. Contact a health care provider if: You have unexplained back pain. Your symptoms do not get better with treatment. You develop side effects from the medicine you are taking. Your urine becomes very dark or has a bad smell. Your lower abdomen becomes distended and you have trouble passing your urine. Get help right away if: You have a fever or chills. You suddenly cannot urinate. You feel lightheaded, or very dizzy, or you faint. There are large amounts of blood or clots in the urine. Your urinary problems become hard to manage. You develop moderate to severe low back or flank pain. The flank is the side of your body between the ribs and the hip. These symptoms may represent a serious problem that is an emergency. Do not wait to see if the symptoms will go away. Get medical help right away. Call your local emergency services (911 in the [place] Do not drive yourself to the hospital. Summary Benign prostatic hyperplasia (BPH) is an enlarged prostate that is caused by the normal aging process and not by cancer. An enlarged prostate can press on the urethra. This can make it hard to pass urine. This condition is part of a normal aging process and is more likely to develop in men over the age of 50 years. Get help right away if you suddenly cannot urinate. This information is not intended to replace advice given to you by your health care provider. Make sure you discuss any questions you have with your health care provider. Document Released: 04/27/2006 Document Revised: 03/22/2019 Document Reviewed: 06/01/2017 Elsevier Patient Education 2020 [employer] 08/01/2021 09:01:56 Calorie Counting for Weight Loss Calorie Counting for Weight Loss Calories are units of energy. Your body needs a certain amount of calories from food to keep you going throughout the day. When you eat more calories than your body needs, your body stores the extra calories as fat. When you eat fewer calories than your body needs, your body downey fat to get the energy it needs. Calorie counting means keeping track of how many calories you eat and drink each day. Calorie counting can be helpful if you need to lose weight. If you make sure to eat fewer calories than your bodyneeds, you should lose weight. Ask your health care provider what a healthy weight is for you. For calorie counting to work, you will need to eat the right number of calories in a day in order to lose a healthy amount of weight per week. A dietitian can help you determine how many calories youneed in a day and will give you suggestions on how to reach your calorie goal. A healthy amount of weight to lose per week is usually 1 2 lb (0.5 0.9 kg). This usually means thatyour daily calorie intake should be reduced by 500 750 calories. Eating 1,200 1,500 calories per day can help most women lose weight. Eating 1,500 1,800 calories per day can help most men lose weight. What is my plan? My goal is to have calories per day. If I have this many calories per day, I should lose around pounds per week. What do I need to know about calorie counting? In order to meet your daily calorie goal, you will need to: Find out how many calories are in each food you would like to eat. Try to do this before you eat. Decide how much of the food you plan to eat. Write down what you ate and how many calories it had. Doing this is called keeping a food log. To successfully lose weight, it is important to balance calorie counting with a healthy lifestyle that includes regular activity. Aim for 150 minutes of moderate exercise (such as walking) or 75 minutes of vigorous exercise (such as running) each week. Where do I find calorie information? The number of calories in a food can be found on a Nutrition Facts label. If a food does not have aNutrition Facts label, try to look up the calories online or ask your dietitian for help. Remember that calories are listed per serving. If you choose to have more than one serving of a food, you will have to multiply the calories per serving by the amount of servings you plan to eat. Forexample, the label on a package of bread might say that a serving size is 1 slice and that there are 90 calories in a serving. If you eat 1 slice, you will have eaten 90 calories. If you eat 2 slices, you will have eaten 180 calories. How do I keep a food log? Immediately after each meal, record the following information in your food log: What you ate. Don't forget to include toppings, sauces, and other extras on the food. How much you ate. This can be measured in cups, ounces, or number of items. How many calories each food and drink had. The total number of calories in the meal. Keep your food log near you, such as in a small notebook in your pocket, or use a mobile raymon or website. Some programs will calculate calories for you and show you how many calories you have left forthe day to meet your goal. What are some calorie counting tips? Use your calories on foods and drinks that will fill you up and not leave you hungry: ?Some examples of foods that fill you up are nuts and nut butters, vegetables, lean proteins, and high-fiber foods like whole grains. High-fiber foods are foods with more than 5 g fiber per serving. ?Drinks such as sodas, specialty coffee drinks, alcohol, and juices have a lot of calories, yet do not fill you up. Eat nutritious foods and avoid empty calories. Empty calories are calories you get from foods or beverages that do not have many vitamins or protein, such as candy, sweets, and soda. It is better to have a nutritious high-calorie food (such as an avocado) than a food with few nutrients (such as a bag of chips). Know how many calories are in the foods you eat most often. This will help you calculate calorie counts faster. Pay attention to calories in drinks. Low-calorie drinks include water and unsweetened drinks. Pay attention to nutrition labels for low fat or fat free foods. These foods sometimes have thesame amount of calories or more calories than the full fat versions. They also often have added sugar, starch, or salt, to make up for flavor that was removed with the fat. Find a way of tracking calories that works for you. Get creative. Try different apps or programs ifwriting down calories does not work for you. What are some portion control tips? Know how many calories are in a serving. This will help you know how many servings of a certain food you can have. Use a measuring cup to measure serving sizes. You could also try weighing out portions on a kitchenscale. With time, you will be able to estimate serving sizes for some foods. Take some time to put servings of different foods on your favorite plates, bowls, and cups so you know what a serving looks like. Try not to eat straight from a bag or box. Doing this can lead to overeating. Put the amount you would like to eat in a cup or on a plate to make sure you are eating the right portion. Use smaller plates, glasses, and bowls to prevent overeating. Try not to multitask (for example, watch TV or use your computer) while eating. If it is time to eat, sit down at a table and enjoy your food. This will help you to know when you are full. It will also help you to be aware of what you are eating and how much you are eating. What are tips for following this plan? Reading food labels Check the calorie count compared to the serving size. The serving size may be smaller than what youare used to eating. Check the source of the calories. Make sure the food you are eating is high in vitamins and proteinand low in saturated and trans fats. Shopping Read nutrition labels while you shop. This will help you make healthy decisions before you decide to purchase your food. Make a grocery list and stick to it. Cooking Try to cook your favorite foods in a healthier way. For example, try baking instead of frying. Use low-fat dairy products. Meal planning Use more fruits and vegetables. Half of your plate should be fruits and vegetables. Include lean proteins like poultry and fish. How do I count calories when eating out? Ask for smaller portion sizes. Consider sharing an entree and sides instead of getting your own entree. If you get your own entree, eat only half. Ask for a box at the beginning of your meal and put the rest of your entree in it so you are not tempted to eat it. If calories are listed on the menu, choose the lower calorie options. Choose dishes that include vegetables, fruits, whole grains, low-fat dairy products, and lean protein. Choose items that are boiled, broiled, grilled, or steamed. Stay away from items that are buttered,battered, fried, or served with cream sauce. Items labeled crispy are usually fried, unless stated otherwise. Choose water, low-fat milk, unsweetened iced tea, or other drinks without added sugar. If you want an alcoholic beverage, choose a lower calorie option such as a glass of wine or light beer. Ask for dressings, sauces, and syrups on the side. These are usually high in calories, so you should limit the amount you eat. If you want a salad, choose a garden salad and ask for grilled meats. Avoid extra toppings like perrin, cheese, or fried items. Ask for the dressing on the side, or ask for olive oil and vinegar or lemon to use as dressing. Estimate how many servings of a food you are given. For example, a serving of cooked rice is cup orabout the size of half a baseball. Knowing serving sizes will help you be aware of how much food you are eating at restaurants. The list below tells you how big or small some common portion sizes arebased on everyday objects: ?1 oz 4 stacked dice. ?3 oz 1 deck of cards. ?1 tsp 1 . ?1 Tbsp a ping-pong ball. ?2 Tbsp 1 ping-pong ball. ? cup baseball. ?1 cup 1 baseball. Summary Calorie counting means keeping track of how many calories you eat and drink each day. If you eat fewer calories than your body needs, you should lose weight. A healthy amount of weight to lose per week is usually 1 2 lb (0.5 0.9 kg). This usually means reducing your daily calorie intake by 500 750 calories. The number of calories in a food can be found on a Nutrition Facts label. If a food does not have aNutrition Facts label, try to look up the calories online or ask your dietitian for help. Use your calories on foods and drinks that will fill you up, and not on foods and drinks that will leave you hungry. Use smaller plates, glasses, and bowls to prevent overeating. This information is not intended to replace advice given to you by your health care provider. Make sure you discuss any questions you have with your health care provider. Document Released: 04/27/2006 Document Revised: 01/14/2019 Document Reviewed: 03/27/2017 [employer] Patient Education 2020 [employer] ( [employer] ). Follow Up Care 07/26/2021 13:15:45 With:Teddy HDZ MD, URL Address: [address] [place] [id number] [phone] When:12/01/2021 [facility] 02-16-2022 Evaluation note* Encounter Date Diagnosis Assessment Notes Treatment Notes Treatment Clinical Notes Jun, Obstructive sleep apnea (ICD-10 - G47.33) Jun, BMI 45.0-49.9, adult (ICD-10 - Z68.42) ipvive Other chief complaint+Reason for visit Narrative* Chief Complaint Amb Documentation COVID + ROBYN/Insomnia Unknown Reason for Visit COVID-19 Insomnia CHF (congestive heart failure) Insomnia Obstructive sleep apnea hypopnea, severe Restless legs syndrome [facility] Work Phone: Evaluation + Plan note Future Appointments Appointment Date:11/04/2021 03:00:00 PM Scheduled Provider:Teddy HDZ MD Location:[facility] Appointment Type:URO Office Visit [facility] Evaluation + Plan note Future Appointments Appointment Date:05/01/2022 11:15:00 AM Scheduled Provider:Mark Zepeda MD [facility] Appointment Type:WC Follow Up Visit (FT) Appointment Date:05/06/2022 02:45:00 PM Scheduled Provider:Ramiro Epperson DPM [facility] Appointment Date:06/04/2022 11:30:00 AM Scheduled Provider:Santos Epperson DPM [facility] Appointment Type:WC [facility] Appointment Date:06/18/2022 11:30:00 AM Scheduled Provider:Santos Epperson DPM Location[facility] Appointment Type:WC [facility] Appointment Date:06/25/2022 10:15:00 AM Scheduled Provider:Santos Epperson DPM [facility] Appointment Type:WC [facility] Appointment Date:08/06/2022 11:45:00 AM Scheduled Provider:Santos Epperson DPM [facility] Appointment Type:WC Follow Up Visit (FT) Appointment Date:08/07/2022 10:30:00 AM Scheduled Provider:Mark Zepeda MD Location:[facility] Appointment Type:WC Follow Up Visit (FT) Appointment Date:09/02/2022 02:15:00 PM Scheduled Provider:Teddy HDZ MD Location:[facility] App[facility]ment Type:[facility] Future Appointments Appointment Date:08/13/2022 08:00:00 AM Scheduled Provider:Santos Epperson DPM Location[facility] Appointment Type:WC Follow Up Visit (FT) Appointment Date:08/14/2022 11:30:00 AM Scheduled Provider:Mark Zepeda MD Location:[facility] Appointment Type:WC Follow Up Visit (FT) Appointment Date:09/02/2022 02:15:00 PM Scheduled Provider:Teddy HDZ MD Location:[facility] Appointment Date:08/14/2022 11:30:00 AM Scheduled Provider: [place]:[facility] Appointment Type:Surgery FT Appointment Date:08/27/2022 11:15:00 AM Scheduled Provider:Santos Epperson DPM Location:[facility] Appointment Type:WC Follow Up Visit (FT) Appointment Date:09/02/2022 02:15:00 PM Scheduled Provider:Teddy HDZ MD Location:[facility] Appointment Date:09/02/2022 02:15:00 PM Scheduled Provider:Teddy HDZ MD Location:[facility] Appointment Type:URO Office Visit Appointment Date:09/03/2022 09:00:00 AM Scheduled Provider:Santos Epperson DPM [facility] Appointment Type:[facility] Future Appointments Appointment Date:09/03/2022 09:00:00 AM Scheduled Provider:Santos Epperson DPM Location[facility] Appointment Type:WC Follow Up Visit (FT) [facility] Evaluation + Plan note Future Appointments Appointment Date:09/10/2022 10:45:00 AM Scheduled Provider:Santos Epperson DPM Location[facility] Appointment Type:WC [facility] Future Appointments Appointment Date:10/22/2022 10:30:00 AM Scheduled Provider:Santos Epperson DPM Location[facility] Appointment Type:WC [facility]FT[facility] note Future Appointments Appointment Date:02/17/2023 03:00:00 PM Scheduled Provider:Ramiro Epperson DPM Location:[facility] Appointment Type: New Patient 30 (FT) Diagnostic Tests Pending * Wound Culture [facility] Future Appointments Appointment Date:03/11/2023 10:00:00 AM Scheduled Provider:Santos Epperson DPM Location[facility] Appointment Type:WC [facility] Up Visit [facility] Future Appointments Appointment Date:04/08/2023 09:15:00 AM Scheduled Provider:Santos Epperson DPM [facility] Appointment Type:WC [facility] App[facility]ments Appointment Date:04/22/2023 10:30:00 AM Scheduled Provider:Santos Epperson DPM Location[facility] Appointment Type:WC [facility] Visit [facility] Future Appointments Appointment Date:05/27/2023 11:30:00 AM Scheduled Provider:Santos Epperson DPM Location[facility] Appointment Type:WC [facility]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 document.
[2024-05-27 07:32] LABS: Basophils Absolute Auto 0.1 10^3/uL (0.0-0.1); Basophils Percent Auto 0.9 % (0.2-2.0); Eosinophils Absolute Auto 0.2 10^3/uL (0.0-0.7); Eosinophils Percent Auto 2.7 % (0.9-7.0); Hematocrit 32.6 % (42.0-54.0); Hemoglobin 10.5 g/dL (14.0-18.0); Immature Granulocytes Abs Auto 0.02 10^3/uL (0.00-0.03); Immature Granulocytes Pct Auto 0.3 % (0.0-0.5); Lymphocytes Absolute Auto 2.6 10^3/uL (1.2-3.8); Lymphocytes Percent Auto 38.7 % (20.5-60.0); Mean Corpuscular HGB Conc 32.2 g/dL (29.9-35.2); Mean Corpuscular Hemoglobin 29.9 pg (25.9-34.0); Mean Corpuscular Volume 92.9 fL (80.0-94.0); Mean Platelet Volume 10.2 fL (9.5-13.5); Monocytes Absolute Auto 0.5 10^3/uL (0.3-0.8); Monocytes Percent Auto 6.8 % (1.7-12.0); Neutrophils Absolute Auto 3.4 10^3/uL (1.4-6.5); Neutrophils Percent Auto 50.6 % (43.0-75.0); Platelet Count 288 10^3/uL (150-450); Red Blood Count 3.51 10^6/uL (4.70-6.10); Red Cell Distribution Width 15.4 % (11.0-15.0); White Blood Count 6.8 10^3/uL (4.0-11.0)
[2024-05-27 07:52] VITALS: BP 173/79; PULSE 77; TEMP 36.1; O2SAT 98; BMI 38.1
[2024-05-27 07:58] LABS: Glucometer 122 mg/dL (74-106)
--- NOTE | 2024-05-27 08:15 | PC.NURSE ---
Dressing right foot dry and intact
[2024-05-27] MEDS: LACTATED RINGER'S SOLUTION 1,000 ML 50 ML IV (08:20)
[2024-05-27] MEDS: CEFAZOLIN SODIUM 2 GM/50 ML D5W PREMIX IV (08:53)
--- NOTE | 2024-05-27 09:03 | XR_ITS ---
The [address] [address] Patient Name: MATT HOWARD MRN: [id number] date: 1960 Sex: M Assigned Patient Location: [facility] Current Patient Location: Accession/Order Number: [id number] Exam Date: 05/27/2024 11:22 Report Date: 05/30/2024 00:54 At the request of: KOLE DIAZ Procedure: XR foot RT min 3V EXAM: XR foot RT min 3V HISTORY: The patient is a 63-year-old male, ulcer COMPARISON: 05/06/2024. XR/XR foot RT min 3V IMPRESSION: There has been further debridement of the previously seen transmetatarsal amputation of all 5 metatarsals since the prior radiographs of 05/06/2024. No surgical complications are seen. Electronically authenticated by: MINERVA DE LUNA Date: 05/30/2024 00:54
--- NOTE | 2024-05-27 09:07 | P.ORON_ITS ---
Brief Operative Note Date of procedure: 05/27/24 Pre-op diagnosis general: Right diabetic foot ulcer, chronic osteomyelitis right foot Post-op diagnosis: same as pre-op Procedure: Procedure performed: Revision of right transmetatarsal amputation with delayed primary closure of ulceration and application of total contact cast Indications for procedure: Patient is a 63-year-old male who has had a nonhealing, recurrent ulcer on the distal aspect of right transmetatarsal amputation stump for 3 months. Despite local wound care ulceration has not healed and at recent appointment we discussed potential risks and benefits of surgical intervention. X-rays revealed small amount of hypertrophic bone on the lesser metatarsals and relatively short first ray therefore disruption in the metatarsal parabola which is contributing to the nonhealing nature of the ulcera tion. Patient education was provided and all questions answered to his satisfaction. Patient wished to proceed with the above procedures Intraoperative findings: Preoperative ulcer located on the distal aspect of TMA stump over the second and third metatarsals measured 4.2 x 1.4 cm. Negative probe to bone. No acute signs of infection and no purulence. Significant amount of scar and fibrous tissue. Lesser metatarsals especially 2, 3 and 4 were long in reference to the first metatarsal. After wound, scar excision and bone resection all remaining tissue appeared healthy and bled appropriately. Procedure in detail: Patient was identified in preoperative holding by myself at which time correct side and site were marked and consent was obtained. Patient is brought back to the operating theater and preoperative antibiotics were started. Patient is placed on the operative table in a supine position with a calf tourniquet. Right lower extremity was prepped and draped in usual sterile fashion. Formal timeout was performed and local anesthesia consisting of 10 cc of 1% lidocaine plain and 10 cc 0.5% Marcaine plain were used for local anesthesia at the surgical site. The right leg was elevated for several minutes and the tourniquet was inflated. The ulceration was excised and a 3-1 ellipse then the ellipse was extended medially and laterally. Combination of sharp and blunt dissection gained access to the distal aspect of the remaining metatarsals. Significant amount of scar tissue was sharply excised as well. Once the metatarsals were fully exposed a sagittal saw was used to resect the lesser metatarsals 2, 3, 4 and 5 which were passed the back table to be sent to pathology. The surgical site was irrigated with 3 L of normal saline on pulse lavage. The tourniquet was deflated with a prompt hyperemic response. Inspection revealed that all remaining tissues bled appropriately. 1 g of vancomycin powder was placed into the surgical site which was then closed in a single layer using skin suture. A dry sterile dressing consisting of Xeroform 4 x 4's and Kerlix were applied followed by a well-padded total contact cast using the TCC-EZ system. Patient tolerated the procedure and anesthesia well was transported to the recovery room with vital signs stable. Postoperative plan: Discharge home under family's care Partial protected weightbearing in total contact cast using walker/crutches Elevate operative extremity above level of heart Prescriptions including Keflex and oxycodone were sent to his pharmacy Follow-up in wound center next week Implants: 1 g vancomycin powder Anesthesia: MAC Surgeon: Bob Emery Estimated blood loss (mL): 25 Tourniquet time (min): 31 Pathology: other (lesser metatarsals) Condition: stable Disposition: PACU
[2024-05-27] MEDS: BUPIVACAINE HCL 0.5% PF 50 MG/10 ML VIAL INJ (09:30)
[2024-05-27] MEDS: LIDOCAINE HCL 1% 100 MG/10 ML MDV INJ (09:31)
[2024-05-27] MEDS: VANCOMYCIN HCL 1,000 MG VIAL 1000 MG TOPICAL (09:53)
[2024-05-27 10:36] VITALS: BP 154/66; PULSE 70; TEMP 36.3; O2SAT 100
[2024-05-27 10:45] LABS: Glucometer 128 mg/dL (74-106)
[2024-05-27 10:51] VITALS: BP 156/82; PULSE 68; TEMP 36.3; O2SAT 99
[2024-05-27] MEDS: OXYCODONE HCL 5 MG TABLET 10 MG PO (10:55)
[2024-05-27 11:21] VITALS: BP 152/70; PULSE 76; O2SAT 99
[2024-05-27 11:35] VITALS: BP 152/80; PULSE 72; O2SAT 98
--- NOTE | 2024-05-27 12:08 | PC.NURSE ---
Getting patient in the wheelchair to take out to his car at 1135 and blood began draining out of his cast after her was in his chair. Called and updated Dr Emery and he states he was in the building and would be over to remove the cast that was just applied and apply another dressing. 1150 Dr Emery enters [place] 14 to cut cast off and is reapplying a splint dressing.
== END 2024-05-27 12:26 | disposition home or self-care (01) ==
PROVIDERS: Anesthesiology; PCP Family Medicine; Visit Provider Podiatrist Foot & Ankle Surgery
PROC: (CPT 28805; principal; 2024-05-27 08:30)
DX: E11.621 Type 2 diabetes mellitus with foot ulcer (principal); L97.412 Non-pressure chronic ulcer of right heel and midfoot with fat layer exposed; E11.69 Type 2 diabetes mellitus with other specified complication; M86.671 Other chronic osteomyelitis, right ankle and foot; Z98.84 Bariatric surgery status; Z87.891 Personal history of nicotine dependence; I25.10 Atherosclerotic heart disease of native coronary artery without angina pectoris; Z95.5 Presence of coronary angioplasty implant and graft; I50.32 Chronic diastolic (congestive) heart failure; I25.2 Old myocardial infarction; I48.91 Unspecified atrial fibrillation; E11.40 Type 2 diabetes mellitus with diabetic neuropathy, unspecified; Z86.718 Personal history of other venous thrombosis and embolism
CPT/HCPCS: 28805; 36415; 73630; 82948; 85025; 88305; J0665; J0690; J1171; J2250; J3010; J3370

== ENCOUNTER 2024-05-30 15:25 | Outpatient (OUT) | payer MEDICARE, MEDICAID, SELFPAY | END 2024-05-30 15:26 | disposition home or self-care (01) | LOC: WC 15:25 | PROVIDERS: PCP Family Medicine; Visit Provider Podiatrist Foot & Ankle Surgery | DX: E11.621 Type 2 diabetes mellitus with foot ulcer (principal); L97.412 Non-pressure chronic ulcer of right heel and midfoot with fat layer exposed | CPT/HCPCS: 29515 ==

== ENCOUNTER 2024-06-01 11:45 | Inpatient (IN) | payer MEDICARE, MEDICAID, SELFPAY ==
[2024-06-01 11:52] VITALS: BP 121/66; PULSE 88; TEMP 37.2; O2SAT 94; BMI 37.7
--- NOTE | 2024-06-01 12:03 | PC.NURSE ---
Surgical incision to right foot present, area of dehiscence to middle of incision, bleeding controlled at this time.
--- NOTE | 2024-06-01 12:06 | XR_ITS ---
The [address] [address] Patient Name: MATT HOWARD MRN: [id number] date: 1960 Sex: M Assigned Patient Location: ER Current Patient Location: Accession/Order Number: [id number] Exam Date: 06/01/2024 12:10 Report Date: 06/01/2024 12:44 At the request of: TOMMY HDZ Procedure: XR foot RT min 3V PROCEDURE: XR foot RT min 3V HISTORY: postop ; recent surgery; opening of incision COMPARISON: XR foot right 05/27/2024 FINDINGS: BONES:Amputation of the forefoot at level of the proximal metatarsals. SOFT TISSUES:Increased density and thickening of the anterior soft tissues, and skin surface irregularity at the anterior most margin. EFFUSION:None visible. OTHER: Negative. XR/XR foot RT min 3V IMPRESSION: 1. Forefoot amputation. 2. Increased soft tissue swelling of the forefoot with skin surface irregularity compatible with patient history. Electronically authenticated by: KARIN RDZ Date: 06/01/2024 12:44
--- NOTE | 2024-06-01 12:08 | ED_ITS ---
HPI - Wound/Laceration General Chief Complaint: Wound/Laceration Stated Complaint: POST OP COMPLICATIONS Time Seen by Provider: 06/01/24 11:47 Source: patient Mode of arrival: walk-in Limitations: no limitations History of Present Illness HPI narrative: Patient presents to ED from wound care clinic for dehisced wound. Patient had a partial amputation of his foot performed on May [address] Emery. Patient has swelling and tenderness and the swelling had caused the wound to dehisce. He reports a lot of pain in the foot. Wound care sent him over for evaluation and admission concerning the dehisced wound. Patient states he is on BiPAP at night and used to be on oxygen for 10 years. He denies any increased shortness of breath no abdominal pain no fevers. He just has pain in his foot with the dehisced wound and minimal bleeding. Related Data Home Medications ?Medication ?Instructions ?Recorded ?Confirmed apixaban 5 mg tablet (Eliquis) 5 mg PO BID 11/10/23 06/01/24 aspirin 81 mg tablet,delayed 81 mg PO .QD 11/10/23 06/01/24 release atorvastatin 80 mg tablet 80 mg PO .QHS 11/10/23 06/01/24 bumetanide 1 mg tablet 3 mg PO Q12H 11/10/23 06/01/24 carvedilol 6.25 mg tablet (Coreg) 6.25 mg PO BID 11/10/23 06/01/24 diclofenac sodium 1 % topical gel 2 g topical Q4H PRN to each 11/10/23 06/01/24 affected area gabapentin 800 mg tablet 800 mg PO Q8H 11/10/23 06/01/24 isosorbide mononitrate 30 mg 90 mg PO .QD 11/10/23 06/01/24 tablet,extended release 24 hr metformin 500 mg tablet 500 mg PO BID 11/10/23 06/01/24 moxifloxacin 0.5 % eye drops 1 drp ophthalmic (eye) QID 11/10/23 06/01/24 nitroglycerin 0.4 mg sublingual 0.4 mg sublingual Q5M PRN chest 11/10/23 06/01/24 tablet pain oxycodone 5 mg tablet 5 mg PO Q8H PRN pain 11/10/23 06/01/24 oxycodone myristate 18 mg capsule 18 mg PO Q12H 11/10/23 06/01/24 sprinkle extended release 12hr(DON'T CRUSH) (Xtampza ER) pen needle, diabetic 32 gauge x 11/10/23 11/10/23/32 (Unifine Pentips) prednisolone acetate 1 % eye 1 drp ophthalmic (eye) Q12H 11/10/23 06/01/24 drops,suspension sacubitril 24 mg-valsartan 26 mg 1 tab PO BID 11/10/23 06/01/24 tablet (Entresto) spironolactone 50 mg tablet 50 mg PO .QD 11/10/23 06/01/24 cholecalciferol (vitamin D3) 25 1,000 unit PO DAILY 05/24/24 06/01/24 mcg (1,000 unit) capsule dapagliflozin propanediol 10 mg 10 mg PO DAILY 05/24/24 06/01/24 tablet (Farxiga) daridorexant 50 mg tablet (Quviviq) 50 mg PO DAILY 05/24/24 06/01/24 divalproex 125 mg tablet,delayed 125 mg PO Q12H 05/24/24 06/01/24 release divalproex 500 mg tablet,delayed 500 mg PO Q12H 05/24/24 06/01/24 release ergocalciferol (vitamin D2) 1,250 1,250 mcg PO QWEEK 05/24/24 06/01/24 mcg (50,000 unit) capsule ferrous sulfate 325 mg (65 mg 325 mg PO DAILY 05/24/24 06/01/24 iron) tablet finasteride 5 mg tablet 5 mg PO DAILY 05/24/24 06/01/24 fluticasone propionate 50 1 spray intranasal DAILY 05/24/24 06/01/24 mcg/actuation nasal spray,suspension (24 Hour Allergy Relief) folic acid 1 mg tablet 1 mg PO DAILY 05/24/24 06/01/24 methotrexate sodium 2.5 mg tablet 17.5 mg PO QWEEK 05/24/24 06/01/24 metolazone 2.5 mg tablet 2.5 mg PO DAILY PRN edema 05/24/24 06/01/24 potassium chloride 20 mEq/15 mL 20 meq PO DAILY 05/24/24 06/01/24 oral liquid semaglutide 1 mg/dose (4 mg/3 mL) 1 mg subcut QWEEK 05/24/24 06/01/24 subcutaneous pen injector (Ozempic) sertraline 25 mg tablet 25 mg PO DAILY 05/24/24 06/01/24 tiotropium bromide 18 mcg capsule 1 cap inhalation DAILY 05/24/24 05/27/24 with inhalation device (Spiriva with HandiHaler) valacyclovir 1 gram tablet 1,000 mg PO Q12H 05/24/24 06/01/24 Allergies Allergy/AdvReac Type Severity Reaction Status Date / Time metoclopramide (From Reglan) AdvReac Intermediate Rash Verified 06/01/24 11:49 polyethylene glycol (From AdvReac Intermediate Rash Verified 06/01/24 11:49 Golytely) polyethylene glycol 3350 AdvReac Intermediate Rash Verified 06/01/24 11:49 (From Golytely) potassium chloride (From AdvReac Intermediate Rash Verified 06/01/24 11:49 Golytely) promethazine (From Phenergan) AdvReac Intermediate rash Verified 06/01/24 11:49 sodium (From Golytely) AdvReac Intermediate Rash Verified 06/01/24 11:49 sodium bicarbonate (From AdvReac Intermediate Rash Verified 06/01/24 11:49 Golytely) sodium chloride (From AdvReac Intermediate Rash Verified 06/01/24 11:49 Golytely) sodium sulfate (From AdvReac Intermediate Rash Verified 06/01/24 11:49 Golytely) Sulfa (Sulfonamide AdvReac Intermediate Rash Verified 06/01/24 11:49 Antibiotics) Review of Systems ROS Status of ROS 10 or more systems reviewed and unremark able except as noted in history and below [facility] Medical History (Updated 05/27/24 @ 07:51 by Carolina Hernandez) [place] filter in place ?Z95.828 - Presence of other vascular implants and grafts (ICD-10) History of blood transfusion ?Z92.89 - Personal history of other medical treatment (ICD-10) Anticoagulated ?Z79.01 - 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) use of anticoagulants (ICD-10) Anemia ?D64.9 - Anemia, unspecified (ICD-10) Emphysema lung ?J43.9 - Emphysema, unspecified (ICD-10) Seizures ?R56.9 - Unspecified convulsions (ICD-10) Chronic kidney disease ?N18.9 - Chronic kidney disease, unspecified (ICD-10) Ulcer of right heel and midfoot with fat layer exposed ?L97.412 - Non-pressure chronic ulcer of right heel and midfoot with fat layer exposed (ICD-10) Gastroparesis ?K31.84 - Gastroparesis (ICD-10) Ankylosing spondylitis ?M45.9 - Ankylosing spondylitis of unspecified sites in spine (ICD-10) Rheumatoid arthritis ?M06.9 - Rheumatoid arthritis, unspecified (ICD-10) Sleep apnea ?G47.30 - Sleep apnea, unspecified (ICD-10) Coronary atherosclerosis ?I25.10 - Atherosclerotic heart disease of [place] coronary artery without angina pectoris (ICD-10) Inguinal hernia ?K40.90 - Unilateral inguinal hernia, without obstruction or gangrene, not specified as recurrent (ICD-10) Pulmonary embolism ?I26.99 - Other pulmonary embolism without acute cor pulmonale (ICD-10) Myocardial infarction ?I21.9 - Acute myocardial infarction, unspecified (ICD-10) Glaucoma ?H40.9 - Unspecified glaucoma (ICD-10) Diabetes ?E11.9 - Type 2 diabetes mellitus without complications (ICD-10) DVT (deep venous thrombosis) ?I82.409 - Acute embolism and thrombosis of unspecified deep veins of unspecified lower extremity (ICD-10) Heart failure ?I50.9 - Heart failure, unspecified (ICD-10) Dyspnea on exertion ?R06.09 - Other forms of dyspnea (ICD-10) Conjunctival ulcer ?H10.89 - Other conjunctivitis (ICD-10) Autoimmune disease ?M35.9 - Systemic involvement of connective tissue, unspecified (ICD-10) Tremor ?R25.1 - Tremor, unspecified (ICD-10) Chest pain ?R07.9 - Chest pain, unspecified (ICD-10) Lower extremity edema ?R60.0 - Localized edema (ICD-10) Pre-operative cardiovascular examination ?Z01.810 - Encounter for preprocedural cardiovascular examination (ICD-10) Diabetic ulcer of toe ?E11.621 - Type 2 diabetes mellitus with foot ulcer (ICD-10) ?L97.509 - Non-pressure chronic ulcer of other part of unspecified foot with unspecified severity (ICD-10) Cardiomegaly ?I51.7 - Cardiomegaly (ICD-10) DM neuropathy, type II diabetes mellitus ?E11.40 - Type 2 diabetes mellitus with diabetic neuropathy, unspecified (ICD-10) DM2 (diabetes mellitus, type 2) ?E11.9 - Type 2 diabetes mellitus without complications (ICD-10) A-fib ?I48.91 - Unspecified atrial fibrillation (ICD-10) CHF (congestive heart failure) ?I50.9 - Heart failure, unspecified (ICD-10) COPD (chronic obstructive pulmonary disease) ?J44.9 - Chronic obstructive pulmonary disease, unspecified (ICD-10) CAD (coronary artery disease) ?I25.10 - Atherosclerotic heart disease of [place] coronary artery without angina pectoris (ICD-10) Surgical History (Updated 05/27/24 @ 07:48 by Carolina Hernandez) History of foot surgery ?Z98.890 - Other specified postprocedural states (ICD-10) H/O colonoscopy ?Z98.890 - Other specified postprocedural states (ICD-10) H/O gastric bypass ?Z98.84 - Bariatric surgery status (ICD-10) H/O skin graft ?Z94.5 - Skin transplant status (ICD-10) Amputated toe (11/11/23) ?S98.139A - Complete traumatic amputation of one unspecified lesser toe, initial encounter (ICD-10) History of appendectomy ?Z90.49 - Acquired absence of other specified parts of digestive tract (ICD- 10) Gastric bypass status for obesity ?Z98.84 - Bariatric surgery status (ICD-10) Family History Mother Family history of CHF (congestive heart failure) Family history of COPD (chronic obstructive pulmonary disease) Family history of cancer Family history of hypertension Family history of myocardial infarction Father Family history of CHF (congestive heart failure) Family history of COPD (chronic obstructive pulmonary disease) Family history of cancer Family history of hypertension Family history of myocardial infarction Family history of stroke Brother Family history of CHF (congestive heart failure) Family history of diabetes mellitus Family history of hypertension Family history of myocardial infarction Family history of stroke Sister Family history of diabetes mellitus Family history of hypertension Family history of myocardial infarction Social History Within the past year, how often did you have a drink containing alcohol: never Score interpretation: A score less than 4 is consistent with normal alcohol consumption. Smoking status: Former smoker Non-prescribed substance use: denies use Previous occupational history: disabled Highest level of school completed/degree received: Associate degree: occupational, technical, vocational program Are you now , , , , never or living with a partner: Little interest or pleasure in doing things: not at all Feeling down, depressed, or hopeless: not at all Feel stressed/tense/nervous/anxious/difficulty sleeping: not at all Exam Narrative Exam Narrative: General: alert, no acute distress Cardiovascular: regular rate and rhythm, normal peripheral perfusion. Respiratory: Lungs CTA, respirations non labored. Extremities: Distal and medial part of the right foot has dehisced with minimal bleeding and clots in the wound. Swelling and erythema surrounding this as well as skin changes from the skin being wet on the foot. The rest of the sutures are in place. He does have lower extremity edema. Neurological: oriented x 4, LOC appropriate for age. Constitutional Vital Signs, click to edit/add: Last Vital Signs Temp 98.9 F 06/01/24 11:52 Pulse 88 06/01/24 11:52 Resp 20 06/01/24 11:52 BP 121/66 06/01/24 11:52 Pulse Ox 94 L 06/01/24 11:52 O2 Del Method Room Air 06/01/24 11:52 Course Vital Signs Vital signs: Vital Signs Temperature 98.9 F 06/01/24 11:52 Pulse Rate 88 06/01/24 11:52 Respiratory Rate 06/01/24 11:52 Blood Pressure 121/66 06/01/24 11:52 Pulse Oximetry 94 L 06/01/24 11:52 Oxygen Delivery Method Room Air 06/01/24 11:52 Temperature 98.9 F 06/01/24 11:52 Pulse Rate 88 06/01/24 11:52 Respiratory Rate 20 06/01/24 11:52 Blood Pressure 121/66 06/01/24 11:52 Pulse Oximetry 94 L 06/01/24 11:52 Oxygen Delivery Method Room Air 06/01/24 11:52 MDM - Wound/Laceration MDM Narrative Medical decision making narrative: Patient was placed in a wet-to-dry dressing. Patient's hemoglobin is stable at 9.0. I spoke to Dr. Emery who would like the patient to be admitted under Dr. Sierra service. Dr. Sierra already knew about the patient and will admit the patient. He may be going to the OR, unsure on timing. Patient is comfortable with care plan for admission. He is stable in ED. Dressing applied to the foot. No signs of osteomyelitis. Differential Diagnosis Differential diagnosis: Likely other (Wound dehisce anemia infection) Medical Records Attestation: I reviewed the patient's medical records. Lab Data Attestation: I reviewed the patient's lab results. Labs: Lab Results 06/01/24 Range/Units 12:00 WBC 8.6 (4.0-11.0) 10^3/uL RBC 2.98 L (4.70-6.10) 10^6/uL Hgb 9.0 L (14.0-18.0) g/dL Hct 28.2 L (42.0-54.0) % MCV 94.6 H (80.0-94.0) fL MCH 30.2 (25.9-34.0) pg MCHC 31.9 (29.9-35.2) g/dL RDW 15.6 H (11.0-15.0) % Plt Count 306 (150-450) 10^3/uL MPV 10.6 (9.5-13.5) fL Neut % (Auto) 70.5 (43.0-75.0) % Lymph % (Auto) 22.1 (20.5-60.0) % Josephine % (Auto) 4.6 (1.7-12.0) % Eos % (Auto) 1.9 (0.9-7.0) % Baso % (Auto) 0.7 (0.2-2.0) % Neut # (Auto) 6.1 (1.4-6.5) 10^3/uL Lymph # (Auto) 1.9 (1.2-3.8) 10^3/uL Josephine # (Auto) 0.4 (0.3-0.8) 10^3/uL Eos # (Auto) 0.2 (0.0-0.7) 10^3/uL Baso # (Auto) 0.1 (0.0-0.1) 10^3/uL Abs Immat Gran (auto) 0.02 (0.00-0.03) 10^3/uL Imm/Tot Granulo (auto) 0.2 (0.0-0.5) % PT 10.7 (9.0-11.6) sec INR 1.01 Sodium 140 (136-145) mmol/L Potassium 4.3 (3.5-5.1) mmol/L Chloride 100 (98-107) mmol/L Carbon Dioxide 31.0 (21.0-32.0) mmol/L Anion Gap 13.3 BUN 21.0 H (7.0-18.0) mg/dL Creatinine 1.27 (0.70-1.30) mg/dL Est GFR ( Amer) >60 (>=60 mL/min/1.73m^2) Est GFR (Non-Af Amer) 57 L (>=60 mL/min/1.73m^2) BUN/Creatinine Ratio 16.5 Glucose 118 H (74-106) mg/dL Lactate 1.4 (0.4-2.0) mmol/L Calcium 8.8 (8.5-10.1) mg/dL Total Bilirubin 0.8 (0.2-1.0) mg/dL AST 18 (15-37) U/L ALT 21 (16-63) U/L Alkaline Phosphatase 69 (46-116) U/L Total Protein 6.9 (6.4-8.2) g/dL Albumin 3.1 L (3.4-5.0) g/dL Globulin 3.8 g/dL Albumin/Globulin Ratio 0.8 Imaging Data Chest x-ray: Radiologist's impression: ITS Impressions Foot X-Ray 06/01/24 12:06 IMPRESSION: 1. Forefoot amputation. 2. Increased soft tissue swelling of the forefoot with skin surface irregularity compatible with patient history. Electronically authenticated by: KARIN RDZ Date: 06/01/2024 12:44 Discharge Plan Discharge Chief Complaint: Wound/Laceration Time of Disposition Decision: 13:36 Prescriptions / Home Meds: No Action atorvastatin 80 mg tablet 80 mg PO .QHS aspirin 81 mg tablet,delayed release (DR/EC) 81 mg PO .QD bumetanide 1 mg tablet 3 mg PO Q12H Eliquis 5 mg tablet 5 mg PO BID metformin 500 mg tablet 500 mg PO BID isosorbide mononitrate 30 mg tablet extended release 24 hr 90 mg PO .QD gabapentin 800 mg tablet 800 mg PO Q8H nitroglycerin 0.4 mg tablet, sublingual 0.4 mg sublingual Q5M PRN (Reason: chest pain) oxycodone 5 mg tablet 5 mg PO Q8H PRN (Reason: pain) moxifloxacin 0.5 % drops 1 drp ophthalmic (eye) QID Xtampza ER 18 mg cap,sprinkl,ER12hr(DONT CRUSH) 18 mg PO Q12H prednisolone acetate 1 % drops,suspension 1 drp ophthalmic (eye) Q12H Patient Comments: BOTH EYES spironolactone 50 mg tablet 50 mg PO .QD (DME) pen needle, diabetic [Unifine Pentips] 32 gauge x 5/32 needle MISCELLANEOUS sacubitril-valsartan [Entresto] 24-26 mg tablet 1 tab PO BID carvedilol [Coreg] 6.25 mg tablet 6.25 mg PO BID Rx Instructions: must administer with a meal/food diclofenac sodium 1 % gel 2 g TOPICAL Q4H PRN (Reason: to each affected area) Patient Comments: APPLY 2-4 GRAMS TOPICALLY TO EACH EFFECTED AREA EVERY 4-6 HOURS. MAX OF 32 GRAMS DAILY potassium chloride 20 mEq/15 mL liquid 20 meq PO DAILY metolazone 2.5 mg tablet 2.5 mg PO DAILY PRN (Reason: edema) sertraline 25 mg tablet 25 mg PO DAILY methotrexate sodium 2.5 mg tablet 17.5 mg PO QWEEK folic acid 1 mg tablet 1 mg PO DAILY cholecalciferol (vitamin D3) 25 mcg (1,000 unit) capsule 1,000 unit PO DAILY dapagliflozin propanediol [Farxiga] 10 mg tablet 10 mg PO DAILY valacyclovir 1 gram tablet 1,000 mg PO Q12H Ozempic 1 mg/dose (4 mg/3 mL) pen injector 1 mg subcut QWEEK divalproex 125 mg tablet,delayed release (DR/EC) 125 mg PO Q12H Quviviq 50 mg tablet 50 mg PO DAILY ferrous sulfate 325 mg (65 mg iron) tablet 325 mg PO DAILY ergocalciferol (vitamin D2) 1,250 mcg (50,000 unit) capsule 1,250 mcg PO QWEEK fluticasone propionate [24 Hour Allergy Relief] 50 mcg/actuation spray,suspension 1 spray intranasal DAILY Rx Instructions: administer into each nostril divalproex 500 mg tablet,delayed release (DR/EC) 500 mg PO Q12H finasteride 5 mg tablet 5 mg PO DAILY tiotropium bromide [Spiriva with HandiHaler] 18 mcg capsule, w/inhalation device 1 cap inhalation DAILY Rx Instructions: puncture 1 cap using device; one dose = 2 inhalations Print Language: Green[place]ic
[2024-06-01 12:12] LABS: Basophils Absolute Auto 0.1 10^3/uL (0.0-0.1); Basophils Percent Auto 0.7 % (0.2-2.0); Eosinophils Absolute Auto 0.2 10^3/uL (0.0-0.7); Eosinophils Percent Auto 1.9 % (0.9-7.0); Hematocrit 28.2 % (42.0-54.0); Immature Granulocytes Abs Auto 0.02 10^3/uL (0.00-0.03); Immature Granulocytes Pct Auto 0.2 % (0.0-0.5); Lymphocytes Absolute Auto 1.9 10^3/uL (1.2-3.8); Lymphocytes Percent Auto 22.1 % (20.5-60.0); Mean Corpuscular HGB Conc 31.9 g/dL (29.9-35.2); Mean Corpuscular Hemoglobin 30.2 pg (25.9-34.0); Mean Corpuscular Volume 94.6 fL (80.0-94.0); Mean Platelet Volume 10.6 fL (9.5-13.5); Monocytes Absolute Auto 0.4 10^3/uL (0.3-0.8); Monocytes Percent Auto 4.6 % (1.7-12.0); Neutrophils Absolute Auto 6.1 10^3/uL (1.4-6.5); Neutrophils Percent Auto 70.5 % (43.0-75.0); Platelet Count 306 10^3/uL (150-450); Red Blood Count 2.98 10^6/uL (4.70-6.10); Red Cell Distribution Width 15.6 % (11.0-15.0); White Blood Count 8.6 10^3/uL (4.0-11.0)
[2024-06-01] MEDS: MORPHINE SULFATE 4 MG/ML VIAL IV (12:22)
[2024-06-01 12:23] LABS: INR 1.01; Prothrombin Time 10.7 sec (9.0-11.6)
[2024-06-01 12:25] LABS: Alanine Aminotransferase 21 U/L (16-63); Albumin Globulin Ratio 0.8; Albumin Level 3.1 g/dL (3.4-5.0); Alkaline Phosphatase 69 U/L (46-116); Anion Gap 13.3; Aspartate Amino Transferase 18 U/L (15-37); BUN Creatinine Ratio 16.5; Bilirubin Total 0.8 mg/dL (0.2-1.0); Calcium 8.8 mg/dL (8.5-10.1); Chloride 100 mmol/L (98-107); Estimated GFR (African America >60 (>=60 mL/min/1.73m^2); Estimated GFR (Non-African Ame 57 (>=60 mL/min/1.73m^2); Globulin 3.8 g/dL; Glucose 118 mg/dL (74-106); Potassium 4.3 mmol/L (3.5-5.1); Sodium 140 mmol/L (136-145); Total Protein 6.9 g/dL (6.4-8.2)
[2024-06-01 12:28] LABS: Lactate/Lactic Acid 1.4 mmol/L (0.4-2.0)
[2024-06-01 14:40] VITALS: BP 124/68; PULSE 88; TEMP 36.7; O2SAT 92
[2024-06-01 14:43] VITALS: BMI 37.7
[2024-06-01] MEDS: OXYCODONE HCL 5 MG TABLET PO ×2 (15:54→22:27)
[2024-06-01] MEDS: GABAPENTIN 400 MG CAPSULE 800 MG PO ×2 (15:54→23:55)
[2024-06-01] MEDS: ACETAMINOPHEN 325 MG TABLET 650 MG PO (15:55)
[2024-06-01] MEDS: ONDANSETRON PF 4 MG/2 ML VIAL IV (15:55)
[2024-06-01] MEDS: IPRATROPIUM BROMIDE 0.5 MG/2.5 ML VIAL.NEB IH (16:24)
[2024-06-01 16:27] VITALS: PULSE 75; O2SAT 95
[2024-06-01 17:20] LABS: Hematocrit 27.5 % (42.0-54.0); Hemoglobin 8.7 g/dL (14.0-18.0)
[2024-06-01] MEDS: MORPHINE SULFATE 2 MG/ML SYRINGE IV ×2 (18:13→23:07)
[2024-06-01] MEDS: BUMETANIDE 1 MG TABLET PO (18:13)
--- NOTE | 2024-06-01 19:06 | P.HP_ITS ---
HPI H&P: HPI History of Present Illness Chief complaint: POST OP COMPLICATIONS, surgical wound dehiscence Narrative: 63 y o male underwent revision of right transmetatarsal amputation with delayed primary closure of ulceration and application of total contact cast on the but developed wound dehiscence post operatively and bleeding. Plan was to take him to OR for possible hematoma evacuation but surgery postponed because patient felt overall weak, tired and very pale on exam. Patient was sent to ED for evaluation to ensure he is not significantly anemia from bleeding and to ensure he is medically optimized for surgery. His work up revealed Hb f 9, not too different from his baseline of 9-10. Patient uses Eliquis for hx of Afib and has not been off of Eliquis. At the time of evaluation, there is no apparent/active bleeding from his foot. Opioid HPI Opioid Management Most Recent Pain and Opioid Data: Last Pain Scale 4 06/01/24 19:17 06/01/24 Last Pain Assessment 06/01/24 18:00 Last ORT Total Score 0 06/01/24 14:43 06/01/24 Last ORT Risk Category Low Risk 06/01/24 14:43 06/01/24 Review of Systems ROS Status of ROS 10 or more systems reviewed and unremark able except as noted in history and below [facility] Medical History (Updated 06/01/24 @ 19:16 by Shaikh Taryn MD) HLD (hyperlipidemia) ?E78.5 - Hyperlipidemia, unspecified (ICD-10) HFrEF (heart failure with reduced ejection fraction) ?I50.20 - Unspecified systolic (congestive) heart failure (ICD-10) Wilma filter in place ?Z95.828 - Presence of other vascular implants and grafts (ICD-10) History of blood transfusion ?Z92.89 - Personal history of other medical treatment (ICD-10) Anticoagulated ?Z79.01 - 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 (ICD-10) Anemia ?D64.9 - Anemia, unspecified (ICD-10) Emphysema lung ?J43.9 - Emphysema, unspecified (ICD-10) Seizures ?R56.9 - Unspecified convulsions (ICD-10) Chronic kidney disease ?N18.9 - Chronic kidney disease, unspecified (ICD-10) Ulcer of right heel and midfoot with fat layer exposed ?L97.412 - Non-pressure chronic ulcer of right heel and midfoot with fat layer exposed (ICD-10) Gastroparesis ?K31.84 - Gastroparesis (ICD-10) Ankylosing spondylitis ?M45.9 - Ankylosing spondylitis of unspecified sites in spine (ICD-10) Rheumatoid arthritis ?M06.9 - Rheumatoid arthritis, unspecified (ICD-10) Sleep apnea ?G47.30 - Sleep apnea, unspecified (ICD-10) Coronary atherosclerosis ?I25.10 - Atherosclerotic heart disease of [place] coronary artery without angina pectoris (ICD-10) Inguinal hernia ?K40.90 - Unilateral inguinal hernia, without obstruction or gangrene, not specified as recurrent (ICD-10) Pulmonary embolism ?I26.99 - Other pulmonary embolism without acute cor pulmonale (ICD-10) Myocardial infarction ?I21.9 - Acute myocardial infarction, unspecified (ICD-10) Glaucoma ?H40.9 - Unspecified glaucoma (ICD-10) Diabetes ?E11.9 - Type 2 diabetes mellitus without complications (ICD-10) DVT (deep venous thrombosis) ?I82.409 - Acute embolism and thrombosis of unspecified deep veins of unspecified lower extremity (ICD-10) Heart failure ?I50.9 - Heart failure, unspecified (ICD-10) Dyspnea on exertion ?R06.09 - Other forms of dyspnea (ICD-10) Conjunctival ulcer ?H10.89 - Other conjunctivitis (ICD-10) Autoimmune disease ?M35.9 - Systemic involvement of connective tissue, unspecified (ICD-10) Tremor ?R25.1 - Tremor, unspecified (ICD-10) Chest pain ?R07.9 - Chest pain, unspecified (ICD-10) Lower extremity edema ?R60.0 - Localized edema (ICD-10) Pre-operative cardiovascular examination ?Z01.810 - Encounter for preprocedural cardiovascular examination (ICD-10) Diabetic ulcer of toe ?E11.621 - Type 2 diabetes mellitus with foot ulcer (ICD-10) ?L97.509 - Non-pressure chronic ulcer of other part of unspecified foot with unspecified severity (ICD-10) Cardiomegaly ?I51.7 - Cardiomegaly (ICD-10) DM neuropathy, type II diabetes mellitus ?E11.40 - Type 2 diabetes mellitus with diabetic neuropathy, unspecified (ICD-10) DM2 (diabetes mellitus, type 2) ?E11.9 - Type 2 diabetes mellitus without complications (ICD-10) A-fib ?I48.91 - Unspecified atrial fibrillation (ICD-10) CHF (congestive heart failure) ?I50.9 - Heart failure, unspecified (ICD-10) COPD (chronic obstructive pulmonary disease) ?J44.9 - Chronic obstructive pulmonary disease, unspecified (ICD-10) CAD (coronary artery disease) ?I25.10 - Atherosclerotic heart disease of [place] coronary artery without angina pectoris (ICD-10) Surgical History (Updated 05/27/24 @ 07:48 by Carolina Hernandez) History of foot surgery ?Z98.890 - Other specified postprocedural states (ICD-10) H/O colonoscopy ?Z98.890 - Other specified postprocedural states (ICD-10) H/O gastric bypass ?Z98.84 - Bariatric surgery status (ICD-10) H/O skin graft ?Z94.5 - Skin transplant status (ICD-10) Amputated toe (11/11/23) ?S98.139A - Complete traumatic amputation of one unspecified lesser toe, initial encounter (ICD-10) History of appendectomy ?Z90.49 - Acquired absence of other specified parts of digestive tract (ICD- 10) Gastric bypass status for obesity ?Z98.84 - Bariatric surgery status (ICD-10) Family History Mother Family history of CHF (congestive heart failure) Family history of COPD (chronic obstructive pulmonary disease) Family history of cancer Family history of hypertension Family history of myocardial infarction Father Family history of CHF (congestive heart failure) Family history of COPD (chronic obstructive pulmonary disease) Family history of cancer Family history of hypertension Family history of myocardial infarction Family history of stroke Brother Family history of CHF (congestive heart failure) Family history of diabetes mellitus Family history of hypertension Family history of myocardial infarction Family history of stroke Sister Family history of diabetes mellitus Family history of hypertension Family history of myocardial infarction Social History Within the past year, how often did you have a drink containing alcohol: never Score interpretation: A score less than 4 is consistent with normal alcohol consumption. Smoking status: Former smoker Non-prescribed substance use: denies use Previous occupational history: disabled Highest level of school completed/degree received: Bachelor's degree Are you now , , , , never or living with a partner: Little interest or pleasure in doing things: not at all Feeling down, depressed, or hopeless: not at all Feel stressed/tense/nervous/anxious/difficulty sleeping: not at all Meds Home Medications and Allergies Home Medications ?Medication ?Instructions ?Recorded ?Confirmed ?Type apixaban 5 mg tablet (Eliquis) 5 mg PO BID 11/10/23 06/01/24 History aspirin 81 mg tablet,delayed 81 mg PO .QD 11/10/23 06/01/24 History release atorvastatin 80 mg tablet 80 mg PO .QHS 11/10/23 06/01/24 History bumetanide 1 mg tablet 3 mg PO Q12H 11/10/23 06/01/24 History carvedilol 6.25 mg tablet (Coreg) 6.25 mg PO BID 11/10/23 06/01/24 History diclofenac sodium 1 % topical gel 2 g topical Q4H PRN to each 11/10/23 06/01/24 History affected area gabapentin 800 mg tablet 800 mg PO Q8H 11/10/23 06/01/24 History isosorbide mononitrate 30 mg 90 mg PO .QD 11/10/23 06/01/24 History tablet,extended release 24 hr metformin 500 mg tablet 500 mg PO BID 11/10/23 06/01/24 History moxifloxacin 0.5 % eye drops 1 drp ophthalmic (eye) QID 11/10/23 06/01/24 History nitroglycerin 0.4 mg sublingual 0.4 mg sublingual Q5M PRN chest 11/10/23 06/01/24 History tablet pain oxycodone 5 mg tablet 5 mg PO Q8H PRN pain 11/10/23 06/01/24 History oxycodone myristate 18 mg capsule 18 mg PO Q12H 11/10/23 06/01/24 History sprinkle extended release 12hr(DON'T CRUSH) (Xtampza ER) pen needle, diabetic 32 gauge x 11/10/23 06/01/24 History 5/32 (Unifine Pentips) prednisolone acetate 1 % eye 1 drp ophthalmic (eye) Q12H 11/10/23 06/01/24 History drops,suspension sacubitril 24 mg-valsartan 26 mg 1 tab PO BID 11/10/23 06/01/24 History tablet (Entresto) spironolactone 50 mg tablet 50 mg PO .QD 11/10/23 06/01/24 History cholecalciferol (vitamin D3) 25 1,000 unit PO DAILY 05/24/24 06/01/24 History mcg (1,000 unit) capsule dapagliflozin propanediol 10 mg 10 mg PO DAILY 05/24/24 06/01/24 History tablet (Farxiga) daridorexant 50 mg tablet (Quviviq) 50 mg PO DAILY 05/24/24 06/01/24 History divalproex 125 mg tablet,delayed 125 mg PO Q12H 05/24/24 06/01/24 History release divalproex 500 mg tablet,delayed 500 mg PO Q12H 05/24/24 06/01/24 History release ergocalciferol (vitamin D2) 1,250 1,250 mcg PO QWEEK 05/24/24 06/01/24 History mcg (50,000 unit) capsule ferrous sulfate 325 mg (65 mg 325 mg PO DAILY 05/24/24 06/01/24 History iron) tablet finasteride 5 mg tablet 5 mg PO DAILY 05/24/24 06/01/24 History fluticasone propionate 50 1 spray intranasal DAILY 05/24/24 06/01/24 History mcg/actuation nasal spray,suspension (24 Hour Allergy Relief) folic acid 1 mg tablet 1 mg PO DAILY 05/24/24 06/01/24 History methotrexate sodium 2.5 mg tablet 17.5 mg PO QWEEK 05/24/24 06/01/24 History metolazone 2.5 mg tablet 2.5 mg PO DAILY PRN edema 05/24/24 06/01/24 History potassium chloride 20 mEq/15 mL 20 meq PO DAILY 05/24/24 06/01/24 History oral liquid semaglutide 1 mg/dose (4 mg/3 mL) 1 mg subcut QWEEK 05/24/24 06/01/24 History subcutaneous pen injector (Ozempic) sertraline 25 mg tablet 25 mg PO DAILY 05/24/24 06/01/24 History tiotropium bromide 18 mcg capsule 1 cap inhalation DAILY 05/24/24 06/01/24 History with inhalation device (Spiriva with HandiHaler) valacyclovir 1 gram tablet 1,000 mg PO Q12H 05/24/24 06/01/24 History Allergies Allergy/AdvReac Type Severity Reaction Status Date / Time metoclopramide (From Reglan) AdvReac Intermediate Rash Verified 06/01/24 11:49 polyethylene glycol (From AdvReac Intermediate Rash Verified 06/01/24 11:49 Golytely) polyethylene glycol 3350 AdvReac Intermediate Rash Verified 06/01/24 11:49 (From Golytely) potassium chloride (From AdvReac Intermediate Rash Verified 06/01/24 11:49 Golytely) promethazine (From Phenergan) AdvReac Intermediate rash Verified 06/01/24 11:49 sodium (From Golytely) AdvReac Intermediate Rash Verified 06/01/24 11:49 sodium bicarbonate (From AdvReac Intermediate Rash Verified 06/01/24 11:49 Golytely) sodium chloride (From AdvReac Intermediate Rash Verified 06/01/24 11:49 Golytely) sodium sulfate (From AdvReac Intermediate Rash Verified 06/01/24 11:49 Golytely) Sulfa (Sulfonamide AdvReac Intermediate Rash Verified 06/01/24 11:49 Antibiotics) Exam Constitutional Vital Signs, click to edit/add: Last Vital Signs Temp 98.0 F 06/01/24 14:40 Pulse 75 06/01/24 16:27 Resp 18 06/01/24 16:27 BP 124/68 06/01/24 14:40 Pulse Ox 95 06/01/24 16:27 O2 Del Method Room Air 06/01/24 16:27 Documenting provider has reviewed patient's vital signs: yes Common normals: no apparent distress and oriented x3 General appearance: cooperative HENOK Common normals: normocephalic and head/scalp atraumatic Head and scalp: normocephalic and atraumatic Eye Common normals: conjunctivae normal and no scleral icterus Conjunctiva: conjunctiva(e) normal Respiratory Common normals: normal respiratory effort and clear to auscultation bilaterally Effort & inspection: able to speak in complete sentences Auscultation: clear to auscultation bilaterally Cardio Common normals: regular rate, S1 normal heart sound and S2 normal heart sound Rate: regular rate Heart sounds: S1 normal and S2 normal GI Common normals: Normal to inspection, nondistended, normoactive bowel sounds present, soft to palpation, non-tender and no hepatosplenomegaly Palpation: soft and no hepatosplenomegaly Extremity Other: Right foot -dressing in place. Neuro Common normals: oriented x3, moves all extremities and no focal motor deficits Psych Common normals: mental status grossly normal, denies hallucinations, denies homicidal ideation and denies suicidal ideation Results Labs Labs: Short CBC 06/01/24 06/01/24 Range/Units 12:00 17:15 WBC 8.6 (4.0-11.0) 10^3/uL Hgb 9.0 L 8.7 L (14.0-18.0) g/dL Hct 28.2 L 27.5 L (42.0-54.0) % Plt Count 306 (150-450) 10^3/uL BMP 06/01/24 12:00 Sodium 140 Potassium 4.3 Chloride 100 Carbon Dioxide 31.0 BUN 21.0 H Creatinine 1.27 Glucose 118 H Calcium 8.8 Liver Function 06/01/24 Range/Units 12:00 Total Bilirubin 0.8 (0.2-1.0) mg/dL AST 18 (15-37) U/L ALT 21 (16-63) U/L Alkaline Phosphatase 69 (46-116) U/L Albumin 3.1 L (3.4-5.0) g/dL Assessment and Plan Assessment and Plan (1) Dehiscence of operative wound: Assessment and Plan: NPO after MN for surgery. Podiatry consulted. Qualifiers: Encounter type: subsequent encounter Qualified Code(s): T81.31XD - Disruption of external operation (surgical) wound, not elsewhere classified, subsequent encounter (2) Anemia due to blood loss: Assessment and Plan: No need for transfusion. C/w serial H&H Monitoring. (3) HFrEF (heart failure with reduced ejection fraction): Assessment and Plan: Euvolemic. C.w home medications. Decrease Bumex to avoid risk of hypovolemia with anemia. (4) Seizures: Assessment and Plan: C/w Depakote (5) CAD (coronary artery disease): Assessment and Plan: Prior hx of CAD. No symptoms to suggest active cardiac ischemia. Monitor Hold ASA due to bleeding Qualifiers: Coronary Disease-Associated Artery/Lesion type: [place] artery [place] vs. transplanted heart: [place] heart Associated angina: without angina Qualified Code(s): I25.10 - Atherosclerotic heart disease of [place] coronary artery without angina pectoris (6) A-fib: Assessment and Plan: In NSR currently. Eliquis on hold due to bleeding and in anticipation of surgery. Qualifiers: Atrial fibrillation type: paroxysmal Qualified Code(s): I48.0 - Paroxysmal atrial fibrillation (7) COPD (chronic obstructive pulmonary disease): Assessment and Plan: No active bronchospasm noted. Cw home medications Qualifiers: COPD type: unspecified COPD Qualified Code(s): J44.9 - Chronic obstru ctive pulmonary disease, unspecified (8) HLD (hyperlipidemia): Assessment and Plan: c/w statin Qualifiers: Hyperlipidemia type: unspecified Qualified Code(s): E78.5 - Hyperlipidemia, unspecified
[2024-06-01 19:58] VITALS: BP 130/76; PULSE 83; TEMP 36.4; O2SAT 96
[2024-06-01 20:00] VITALS: O2SAT 96
[2024-06-01] MEDS: PREDNISOLONE ACETATE OP 1% SUSP 100 DROPS/5 ML 1 DROP OP (21:06)
[2024-06-01] MEDS: CARVEDILOL 6.25 MG TABLET PO (21:07)
[2024-06-01] MEDS: ATORVASTATIN CALCIUM 40 MG TABLET 80 MG PO (21:07)
[2024-06-01] MEDS: DIVALPROEX SODIUM 500 MG TABLET.DR PO (21:07)
[2024-06-01] MEDS: SACUBITRIL/VALSARTAN 24 MG-26 MG TABLET 1 TAB PO (21:08)
[2024-06-01] MEDS: DIVALPROEX SODIUM 125 MG TABLET.DR PO (21:09)
[2024-06-01] MEDS: TRAZODONE HCL 50 MG TABLET 25 MG PO (22:27)
[2024-06-01 22:44] LABS: Hematocrit 26.5 % (42.0-54.0); Hemoglobin 8.5 g/dL (14.0-18.0)
[2024-06-02] VITALS (15 sets, daily range): BP systolic 92–146; BP diastolic 57–90; PULSE 84–102; TEMP 36.4–37.2; O2SAT 87–97
[2024-06-02] MEDS: MORPHINE SULFATE 2 MG/ML SYRINGE IV ×3 (04:43→17:58)
[2024-06-02] MEDS: SPIRONOLACTONE 25 MG TABLET 50 MG PO (05:27)
[2024-06-02] MEDS: BUMETANIDE 1 MG TABLET PO (05:27)
[2024-06-02 06:37] LABS: Basophils Absolute Auto 0.1 10^3/uL (0.0-0.1); Basophils Percent Auto 0.7 % (0.2-2.0); Eosinophils Absolute Auto 0.2 10^3/uL (0.0-0.7); Eosinophils Percent Auto 3.3 % (0.9-7.0); Hematocrit 25.6 % (42.0-54.0); Hemoglobin 8.3 g/dL (14.0-18.0); Immature Granulocytes Abs Auto 0.03 10^3/uL (0.00-0.03); Immature Granulocytes Pct Auto 0.4 % (0.0-0.5); Lymphocytes Absolute Auto 2.1 10^3/uL (1.2-3.8); Lymphocytes Percent Auto 31.2 % (20.5-60.0); Mean Corpuscular HGB Conc 32.4 g/dL (29.9-35.2); Mean Corpuscular Hemoglobin 30.4 pg (25.9-34.0); Mean Corpuscular Volume 93.8 fL (80.0-94.0); Mean Platelet Volume 10.3 fL (9.5-13.5); Monocytes Absolute Auto 0.3 10^3/uL (0.3-0.8); Neutrophils Percent Auto 60.4 % (43.0-75.0); Platelet Count 278 10^3/uL (150-450); Red Blood Count 2.73 10^6/uL (4.70-6.10); Red Cell Distribution Width 15.8 % (11.0-15.0); White Blood Count 6.7 10^3/uL (4.0-11.0)
[2024-06-02] MEDS: LACTATED RINGER'S SOLUTION 1,000 ML 50 ML IV (08:15)
[2024-06-02] MEDS: IPRATROPIUM/ALBUTEROL SULFATE 3 ML AMPUL.NEB IH (08:15)
[2024-06-02 08:30] LABS: Glucometer 113 mg/dL (74-106)
[2024-06-02] MEDS: LIDOCAINE HCL 1% 100 MG/10 ML MDV 20 ML INJ (09:18)
[2024-06-02] MEDS: CEFAZOLIN SODIUM/DEXTROSE,ISO 2 GM/50 ML PIGGYBACK IV (09:18)
--- NOTE | 2024-06-02 09:30 | CM.NOTE ---
Rounds made with Dr. Centeno pt was in OR.
[2024-06-02] MEDS: VANCOMYCIN HCL 500 MG VIAL 1000 MG TOPICAL (10:05)
--- NOTE | 2024-06-02 10:38 | PM.ORONB ---
Brief Operative Note Date of procedure: 06/02/24 Pre-op diagnosis general: Right surgical dehiscence with hematoma Post-op diagnosis: same as pre-op Procedure: Procedure performed: Incision and drainage of hematoma with delayed primary closure, application of incisional wound VAC and posterior splint, right foot Indications for procedure: Patient is a 63-year-old diabetic male who underwent revision of transmetatarsal amputation on 05/27/2024. After the procedure he was placed into a total contact cast but upon getting into his car to go home bleeding occurred through the cast and was brought back up into the PACU. The cast was removed and replaced by a multilayered posterior splint. He then followed up in the wound center later that week for a dressing change which noted bloody drainage with a small amount of strikethrough. I then saw him yesterday with Kelley Blanco PA-c and the patient had dehiscence at his amputation stump with hematoma collection. Patient noted not feeling well and appeared pale therefore I recommended that he present to the emergency department for further evaluation and admission. His hemoglobin was 10.5 prior to surgery on 05/27 and had dropped to 9.0 as of yesterday. This morning his hemoglobin was 8.3. Given the dehiscence and large hematoma I recommended I&D and hopeful closure of the surgical site to prevent infection and expedite wound healing. I discussed this with the patient and his , Jomar and answered all their questions. Intraoperative findings: Dehiscence noted at the central aspect of the stump which measured 4.5 x 2 cm. There is no signs of infection. The skin edges were mildly macerated. No pulsatile bleeding or perfusion was noted and the skin edges bled appropriately. Procedure in detail: Patient was identified in preoperative holding by myself at which time correct side and site were marked and consent was obtained. Patient was brought back in the operating theater placed on table in supine position. Preoperative antibiotics were administered. IV sedation was administered and the remaining sutures were removed. The right lower extremity was prepped and draped in the usual sterile fashion. Formal timeout was performed and local anesthesia was administered just proximal to the stump consisting of 20 cc of 1% lidocaine plain. No tourniquet was utilized. The hematoma was evacuated with curettes and rongeur's. The skin edges were then also debrided with a curette until healthy bleeding occurred. Then the stump was irrigated with 4 L of normal saline on pulse lavage. No pulsatile bleeding was observed throughout the procedure. Only pinpoint bleeding at the skin edges upon debridement was noted which was considered to be within normal limits. 1 g of vancomycin powder was placed into the stump which was mildly swollen and skin edges slightly retracted. To aid in closure 2 deep sutures with observable suture was placed which provided added hemostasis and soft tissue coverage over bone. Then skin was meticulously closed without tension. No significant bleeding was observed once the skin was closed but to ensure hemostasis a temporary pressure dressing was applied while on the back table I prepared an incisional wound VAC. The pressure dressing was removed after 5 minutes again no bleeding was observed. A prevena incisional wound VAC was applied over the incision and the wound VAC was set at 125 mmHg continuous and adequate suction was obtained. Output was observed for nearly 15 minutes noting no bloody output. A well-padded multilayer posterior splint was then applied. Patient tolerated the procedure and anesthesia well and was transferred to the recovery room with vital signs stable. Postoperative plan: Transfer to medical surgical unit for continued observation by medicine Repeat H&H was ordered -Dr. Centeno notified Nonweightbearing to the right foot Elevate right foot above the level of the heart Perioperative antibiotics consisting of 1 g Ancef every 8 hours was ordered Recommended that the patient remain in the hospital for an additional night to ensure bleeding is controlled. Plan is for patient to be discharged home once medically stable Anesthesia: MAC and local Surgeon: Bob Emery Lead Customer Service Representative: Margaret Martins Estimated blood loss (mL): 50 Tourniquet time (min): 0 Pathology: none sent Condition: stable Disposition: PACU
--- NOTE | 2024-06-02 10:46 | SWNOTE1 ---
SW reviewed therapy notes and pt has voiced he has had multiple surgeries and has everything he needs. SW to stop in later today to complete assessment for any possible discharge needs.
[2024-06-02 10:57] LABS: Hematocrit 25.3 % (42.0-54.0); Hemoglobin 8.3 g/dL (14.0-18.0)
[2024-06-02] MEDS: GABAPENTIN 400 MG CAPSULE 800 MG PO ×2 (11:46→16:44)
[2024-06-02] MEDS: CANAGLIFLOZIN 100 MG TABLET 300 MG PO (11:47)
[2024-06-02] MEDS: CARVEDILOL 6.25 MG TABLET PO ×2 (11:47→21:18)
[2024-06-02] MEDS: DIVALPROEX SODIUM 500 MG TABLET.DR PO ×2 (11:48→21:18)
[2024-06-02] MEDS: DIVALPROEX SODIUM 125 MG TABLET.DR PO ×2 (11:48→21:18)
[2024-06-02] MEDS: FOLIC ACID 1 MG TABLET PO (11:49)
[2024-06-02] MEDS: FINASTERIDE 5 MG TABLET PO (11:49)
[2024-06-02] MEDS: ISOSORBIDE MONONITRATE 30 MG TAB.ER.24H 90 MG PO (11:49)
[2024-06-02] MEDS: FERROUS SULFATE 325 MG TABLET PO (11:49)
[2024-06-02] MEDS: PREDNISOLONE ACETATE OP 1% SUSP 100 DROPS/5 ML 1 DROP OP ×2 (11:50→21:18)
[2024-06-02] MEDS: SACUBITRIL/VALSARTAN 24 MG-26 MG TABLET 1 TAB PO (11:52)
--- NOTE | 2024-06-02 12:44 | P.IMPN_ITS ---
Progress Note: A&P Assessment and Plan (1) Dehiscence of operative wound: Assessment and Plan: Due to post operative hematoma, s/p I&D of hematoma Wound vac in place. Post op care as per Podiatry. Qualifiers: Encounter type: subsequent encounter Qualified Code(s): T81.31XD - Disruption of external operation (surgical) wound, not elsewhere classified, subsequent encounter (2) Anemia due to blood loss: Assessment and Plan: Hb with gradual decline. Does not meet threshold for transfusion. Hb goal of 8 due to hx of CHF. (3) HFrEF (heart failure with reduced ejection fraction): Assessment and Plan: hypovolemic with low BP. Hold antihypertensives today (4) Seizures: Assessment and Plan: Stable C/w Depakote. (5) CAD (coronary artery disease): Assessment and Plan: No active cardiac ischemia ASA on hold due to bleeding Qualifiers: Coronary Disease-Associated Artery/Lesion type: [place] artery [place] vs. transplanted heart: [place] heart Associated angina: without angina Qualified Code(s): I25.10 - Atherosclerotic heart disease of [place] coronary artery without angina pectoris (6) A-fib: Assessment and Plan: Eliquis on hold. Qualifiers: Atrial fibrillation type: paroxysmal Qualified Code(s): I48.0 - Paroxysmal atrial fibrillation (7) COPD (chronic obstructive pulmonary disease): Assessment and Plan: No active wheezing. Monitor. Qualifiers: COPD type: unspecified COPD Qualified Code(s): J44.9 - Chronic obstructive pulmonary disease, unspecified (8) HLD (hyperlipidemia): Assessment and Plan: c/w statin Qualifiers: Hyperlipidemia type: unspecified Qualified Code(s): E78.5 - Hyperlipidemia, unspecified Internal Medicine - PN: Subj Subjective Interval history: Seen and examined post op. Patient feels worn out, tired and has little to no energy. He also appears considerably pale. Wound vac in place post operatively to ensure there is no persistent bleeding post op. Exam Constitutional Vital Signs, click to edit/add: Last Vital Signs Temp 97.8 F 06/02/24 12:27 Pulse 96 H 06/02/24 12:27 Resp 16 06/02/24 12:27 BP 92/57 06/02/24 12:27 Pulse Ox 94 L 06/02/24 12:38 O2 Del Method Nasal Cannula 06/02/24 12:38 O2 Flow Rate 2 06/02/24 12:38 Documenting provider has reviewed patient's vital signs: yes Common normals: oriented x3 General appearance: cooperative Other: LETHARGIC., EXHAUSTED Respiratory Common normals: normal respiratory effort and clear to auscultation bilaterally Effort & inspection: able to speak in complete sentences Auscultation: clear to auscultation bilaterally Cardio Common normals: regular rate, S1 normal heart sound and S2 normal heart sound Rate: regular rate Heart sounds: S1 normal and S2 normal Extremity Other: Right foot -dressing in place. Neuro Common normals: oriented x3, moves all extremities and no focal motor deficits Psych Common normals: mental status grossly normal, denies hallucinations, denies homicidal ideation and denies suicidal ideation Internal Medicine - PN: Obj Da Labs Labs: Laboratory Results - last 24 hr 06/01/24 06/01/24 06/02/24 17:15 22:33 06:16 WBC 6.7 RBC 2.73 L Hgb 8.7 L 8.5 L 8.3 L Hct 27.5 L 26.5 L 25.6 L MCV 93.8 MCH 30.4 MCHC 32.4 RDW 15.8 H Plt Count 278 MPV 10.3 Neut % (Auto) 60.4 Lymph % (Auto) 31.2 [place] % (Auto) 4.0 Eos % (Auto) 3.3 Baso % (Auto) 0.7 Neut # (Auto) 4.0 Lymph # (Auto) 2.1 [place] # (Auto) 0.3 Eos # (Auto) 0.2 Baso # (Auto) 0.1 Abs Immat Gran (auto) 0.03 Imm/Tot Granulo (auto) 0.4 POC Glucose Blood Type O Positive Antibody Screen Negative 06/02/24 06/02/24 08:28 10:50 WBC RBC Hgb 8.3 L Hct 25.3 L MCV MCH MCHC RDW Plt Count MPV Neut % (Auto) Lymph % (Auto) [place] % (Auto) Eos % (Auto) Baso % (Auto) Neut # (Auto) Lymph # (Auto) [place] # (Auto) Eos # (Auto) Baso # (Auto) Abs Immat Gran (auto) Imm/Tot Granulo (auto) POC Glucose 113 H Blood Type Antibody Screen
[2024-06-02] MEDS: CEFAZOLIN SODIUM/DEXTROSE,ISO 1 GM/50 ML PREMIX IV (16:44)
--- NOTE | 2024-06-02 17:31 | CM.NOTE ---
Important Message From Medicare discussed with pt, pt verbalizes understanding and signs paper. Original given to pt and copy placed in pt's chart.
[2024-06-02 19:03] LABS: Hematocrit 25.9 % (42.0-54.0); Hemoglobin 8.2 g/dL (14.0-18.0)
[2024-06-02] MEDS: ATORVASTATIN CALCIUM 40 MG TABLET 80 MG PO (21:18)
[2024-06-03] VITALS (9 sets, daily range): BP systolic 95–162; BP diastolic 52–81; PULSE 88–99; TEMP 36.4–36.6; O2SAT 94–99
[2024-06-03] MEDS: MORPHINE SULFATE 2 MG/ML SYRINGE IV ×5 (00:20→18:52)
[2024-06-03] MEDS: GABAPENTIN 400 MG CAPSULE 800 MG PO ×3 (00:20→16:32)
[2024-06-03] MEDS: CEFAZOLIN SODIUM/DEXTROSE,ISO 1 GM/50 ML PREMIX IV ×3 (00:20→16:32)
[2024-06-03] MEDS: SPIRONOLACTONE 25 MG TABLET 50 MG PO (05:32)
[2024-06-03 07:53] LABS: Basophils Percent Auto 0.4 % (0.2-2.0); Eosinophils Absolute Auto 0.1 10^3/uL (0.0-0.7); Eosinophils Percent Auto 1.3 % (0.9-7.0); Immature Granulocytes Abs Auto 0.02 10^3/uL (0.00-0.03); Immature Granulocytes Pct Auto 0.2 % (0.0-0.5); Lymphocytes Absolute Auto 1.9 10^3/uL (1.2-3.8); Lymphocytes Percent Auto 21.2 % (20.5-60.0); Mean Corpuscular HGB Conc 33.2 g/dL (29.9-35.2); Mean Corpuscular Volume 93.4 fL (80.0-94.0); Mean Platelet Volume 10.4 fL (9.5-13.5); Monocytes Absolute Auto 0.6 10^3/uL (0.3-0.8); Monocytes Percent Auto 6.2 % (1.7-12.0); Neutrophils Absolute Auto 6.3 10^3/uL (1.4-6.5); Neutrophils Percent Auto 70.7 % (43.0-75.0); Platelet Count 267 10^3/uL (150-450); Red Blood Count 2.26 10^6/uL (4.70-6.10); Red Cell Distribution Width 15.9 % (11.0-15.0); White Blood Count 8.9 10^3/uL (4.0-11.0)
[2024-06-03 08:18] LABS: Hematocrit 21.1 % (42.0-54.0)
--- NOTE | 2024-06-03 08:36 | PM.PN ---
Progress Note: Subjective Subjective Interval history: Patient seen at bedside. Complains of throbbing pain to the distal medial foot. Otherwise patient is feeling better and has no other complaints Exam Narrative Exam Narrative: Splint is clean dry and intact. I ensured that the splint was not too tight or rubbing any bony prominences. VAC is holding suction with scant bloody output Constitutional Vital Signs, click to edit/add: Last Vital Signs Temp 97.7 F 06/03/24 05:36 Pulse 99 H 06/03/24 05:36 Resp 18 06/03/24 05:36 BP 132/61 06/03/24 05:36 Pulse Ox 96 06/03/24 05:36 O2 Del Method Room Air 06/03/24 05:36 O2 Flow Rate 2 06/02/24 12:38 Progress Note: Objective Labs Labs: Short CBC 06/02/24 06/02/24 06/03/24 Range/Units 10:50 18:45 07:40 WBC 8.9 (4.0-11.0) 10^3/uL Hgb 8.3 L 8.2 L 7.0 L (14.0-18.0) g/dL Hct 25.3 L 25.9 L 21.1 L* (42.0-54.0) % Plt Count 267 (150-450) 10^3/uL Progress Note: A&P Assessment and Plan (1) Dehiscence of operative wound: Qualifiers: Encounter type: subsequent encounter Qualified Code(s): T81.31XD - Disruption of external operation (surgical) wound, not elsewhere classified, subsequent encounter (2) Anemia due to blood loss: (3) HFrEF (heart failure with reduced ejection fraction): (4) Seizures: (5) CAD (coronary artery disease): Qualifiers: Coronary Disease-Associated Artery/Lesion type: [place] artery [place] vs. transplanted heart: [place] heart Associated angina: without angina Qualified Code(s): I25.10 - Atherosclerotic heart disease of [place] coronary artery without angina pectoris (6) A-fib: Qualifiers: Atrial fibrillation type: paroxysmal Qualified Code(s): I48.0 - Paroxysmal atrial fibrillation (7) COPD (chronic obstructive pulmonary disease): Qualifiers: COPD type: unspecified COPD Qualified Code(s): J44.9 - Chronic obstructive pulmonary disease, unspecified (8) HLD (hyperlipidemia): Qualifiers: Hyperlipidemia type: unspecified Qualified Code(s): E78.5 - Hyperlipidemia, unspecified Plan Patient having throbbing pain but after reviewing meds with his nurse he has not received his home long-acting pain medicine. I did order 15 mg of Toradol and 10 mg of oxycodone as one-time dosage VAC was turned down to 75 mmHg continuous to see if this helps with his pain When he is ready for discharge I have reviewed with Kaitlin, his nurse, how to transfer tubing to home Prevena Vac Strict nonweightbearing Upon discharge he should follow-up with me in the wound center on Thursday or Thursday Call with updates
[2024-06-03] MEDS: ISOSORBIDE MONONITRATE 30 MG TAB.ER.24H 90 MG PO (08:57)
[2024-06-03] MEDS: KETOROLAC TROMETHAMINE 30 MG/ML VIAL 15 MG IVP ×3 (08:58→21:07)
[2024-06-03] MEDS: CARVEDILOL 6.25 MG TABLET PO ×2 (08:58→21:07)
[2024-06-03] MEDS: DIVALPROEX SODIUM 125 MG TABLET.DR PO ×2 (08:58→21:07)
[2024-06-03] MEDS: DIVALPROEX SODIUM 500 MG TABLET.DR PO ×2 (08:58→21:07)
[2024-06-03] MEDS: OXYCODONE HCL 5 MG TABLET 10 MG PO ×3 (08:58→23:25)
[2024-06-03] MEDS: FERROUS SULFATE 325 MG TABLET PO (08:58)
[2024-06-03] MEDS: FOLIC ACID 1 MG TABLET PO (08:58)
[2024-06-03] MEDS: FINASTERIDE 5 MG TABLET PO (08:58)
[2024-06-03] MEDS: PREDNISOLONE ACETATE OP 1% SUSP 100 DROPS/5 ML 1 DROP OP ×2 (08:59→21:07)
--- NOTE | 2024-06-03 10:23 | CM.NOTE ---
Rounds made with Dr. Centeno. Dr. Centeno reviews labs and need for PRBCs today. Mr. Waterman verbalizes understanding.
--- NOTE | 2024-06-03 12:03 | P.IMPN_ITS ---
Progress Note: A&P Assessment and Plan (1) Dehiscence of operative wound: Assessment and Plan: Due to post operative hematoma, s/p I&D of hematoma Wound vac in place. Poorly controlled pain. Needing IV morphine. Increased OXycodone to 10 mg Q6H prn Qualifiers: Encounter type: subsequent encounter Qualified Code(s): T81.31XD - Disruption of external operation (surgical) wound, not elsewhere classified, subsequent encounter (2) Anemia due to blood loss: Assessment and Plan: Hb with gradual decline. Hb 7 today. Ordered one unit PRBC for the patient. Post transfusion H&h at 3 pm (3) HFrEF (heart failure with reduced ejection fraction): Assessment and Plan: resume antihypertensives. (4) Seizures: Assessment and Plan: Stable C/w Depakote. (5) CAD (coronary artery disease): Assessment and Plan: No active cardiac ischemia ASA on hold due to bleeding Qualifiers: Coronary Disease-Associated Artery/Lesion type: [place] artery [place] vs. transplanted heart: [place] heart Associated angina: without angina Qualified Code(s): I25.10 - Atherosclerotic heart disease of [place] coronary artery without angina pectoris (6) A-fib: Assessment and Plan: Eliquis on hold. Qualifiers: Atrial fibrillation type: paroxysmal Qualified Code(s): I48.0 - Paroxysmal atrial fibrillation (7) COPD (chronic obstructive pulmonary disease): Assessment and Plan: No active wheezing. Monitor. Qualifiers: COPD type: unspecified COPD Qualified Code(s): J44.9 - Chronic obstructive pulmonary disease, unspecified (8) HLD (hyperlipidemia): Assessment and Plan: c/w statin Qualifiers: Hyperlipidemia type: unspecified Qualified Code(s): E78.5 - Hyperlipidemia, unspecified Internal Medicine - PN: Subj Subjective Interval history: Patient seen at bedside. Complaints of severe pain in foot. Hb 7.0 this morning. Exam Constitutional Vital Signs, click to edit/add: Last Vital Signs Temp 97.8 F 06/03/24 11:35 Pulse 97 H 06/03/24 11:35 Resp 18 06/03/24 11:35 BP 162/81 H 06/03/24 11:35 Pulse Ox 99 06/03/24 11:35 O2 Del Method Room Air 06/03/24 11:35 O2 Flow Rate 2 06/02/24 12:38 Documenting provider has reviewed patient's vital signs: yes Common normals: oriented x3 General appearance: cooperative Other: LETHARGIC., EXHAUSTED Respiratory Common normals: normal respiratory effort and clear to auscultation bilaterally Effort & inspection: able to speak in complete sentences Auscultation: clear to auscultation bilaterally Cardio Common normals: regular rate, S1 normal heart sound and S2 normal heart sound Rate: regular rate Heart sounds: S1 normal and S2 normal Extremity Other: Right foot -dressing in place. Neuro Common normals: oriented x3, moves all extremities and no focal motor deficits Psych Common normals: mental status grossly normal, denies hallucinations, denies homicidal ideation and denies suicidal ideation Internal Medicine - PN: Obj Da Labs Labs: Laboratory Results - last 24 hr 06/01/24 06/02/24 06/03/24 17:15 18:45 07:40 WBC 8.9 RBC 2.26 L Hgb 8.2 L 7.0 L Hct 25.9 L 21.1 L* MCV 93.4 MCH 31.0 MCHC 33.2 RDW 15.9 H Plt Count 267 MPV 10.4 Neut % (Auto) 70.7 Lymph % (Auto) 21.2 [place] % (Auto) 6.2 Eos % (Auto) 1.3 Baso % (Auto) 0.4 Neut # (Auto) 6.3 Lymph # (Auto) 1.9 [place] # (Auto) 0.6 Eos # (Auto) 0.1 Baso # (Auto) 0.0 Abs Immat Gran (auto) 0.02 Imm/Tot Granulo (auto) 0.2 Blood Type O Positive Antibody Screen Negative Crossmatch See Detail
[2024-06-03] MEDS: SERTRALINE HCL 50 MG TABLET 25 MG PO (12:28)
[2024-06-03] MEDS: BUMETANIDE 1 MG TABLET 3 MG PO ×2 (12:29→21:06)
[2024-06-03] MEDS: 0.9 % SODIUM CHLORIDE 250 ML 10 ML IV (12:30)
[2024-06-03 15:46] LABS: Hematocrit 26.1 % (42.0-54.0); Hemoglobin 8.6 g/dL (14.0-18.0)
[2024-06-03] MEDS: ATORVASTATIN CALCIUM 40 MG TABLET 80 MG PO (21:07)
--- NOTE | 2024-06-03 23:18 | RESP.RT ---
Pt refused HHN. No respiratory distress noted.
[2024-06-04] VITALS (12 sets, daily range): BP systolic 113–155; BP diastolic 64–88; PULSE 76–88; TEMP 36.3–36.6; O2SAT 93–97
[2024-06-04] MEDS: CEFAZOLIN SODIUM/DEXTROSE,ISO 1 GM/50 ML PREMIX IV ×3 (00:01→17:50)
[2024-06-04] MEDS: MORPHINE SULFATE 2 MG/ML SYRINGE IV (00:46)
[2024-06-04] MEDS: KETOROLAC TROMETHAMINE 30 MG/ML VIAL 15 MG IVP ×4 (03:04→21:23)
[2024-06-04] MEDS: SPIRONOLACTONE 25 MG TABLET 50 MG PO (05:34)
[2024-06-04 06:20] LABS: Basophils Percent Auto 0.7 % (0.2-2.0); Eosinophils Absolute Auto 0.2 10^3/uL (0.0-0.7); Eosinophils Percent Auto 2.6 % (0.9-7.0); Hemoglobin 7.6 g/dL (14.0-18.0); Immature Granulocytes Abs Auto 0.02 10^3/uL (0.00-0.03); Immature Granulocytes Pct Auto 0.3 % (0.0-0.5); Lymphocytes Percent Auto 33.7 % (20.5-60.0); Mean Corpuscular HGB Conc 32.1 g/dL (29.9-35.2); Mean Corpuscular Hemoglobin 29.9 pg (25.9-34.0); Mean Corpuscular Volume 93.3 fL (80.0-94.0); Mean Platelet Volume 10.5 fL (9.5-13.5); Monocytes Absolute Auto 0.4 10^3/uL (0.3-0.8); Monocytes Percent Auto 6.8 % (1.7-12.0); Neutrophils Absolute Auto 3.3 10^3/uL (1.4-6.5); Neutrophils Percent Auto 55.9 % (43.0-75.0); Platelet Count 259 10^3/uL (150-450); Red Blood Count 2.54 10^6/uL (4.70-6.10); Red Cell Distribution Width 15.9 % (11.0-15.0); White Blood Count 5.9 10^3/uL (4.0-11.0)
[2024-06-04 07:36] LABS: Hematocrit 23.7 % (42.0-54.0)
[2024-06-04 08:30] LABS: Hemoglobin 7.6 g/dL (14.0-18.0)
[2024-06-04 08:34] LABS: Hematocrit 23.6 % (42.0-54.0)
[2024-06-04] MEDS: ISOSORBIDE MONONITRATE 30 MG TAB.ER.24H 90 MG PO (09:32)
[2024-06-04] MEDS: OXYCODONE HCL 5 MG TABLET 10 MG PO ×4 (09:32→23:33)
[2024-06-04] MEDS: GABAPENTIN 400 MG CAPSULE 800 MG PO ×4 (09:33→23:33)
[2024-06-04] MEDS: FINASTERIDE 5 MG TABLET PO (09:33)
[2024-06-04] MEDS: FERROUS SULFATE 325 MG TABLET PO (09:33)
[2024-06-04] MEDS: BUMETANIDE 1 MG TABLET 3 MG PO ×2 (09:33→21:20)
[2024-06-04] MEDS: FOLIC ACID 1 MG TABLET PO (09:33)
[2024-06-04] MEDS: CARVEDILOL 6.25 MG TABLET PO ×2 (09:33→21:23)
[2024-06-04] MEDS: SERTRALINE HCL 50 MG TABLET 25 MG PO (09:33)
[2024-06-04] MEDS: DIVALPROEX SODIUM 500 MG TABLET.DR PO ×2 (09:33→21:23)
[2024-06-04] MEDS: PREDNISOLONE ACETATE OP 1% SUSP 100 DROPS/5 ML 1 DROP OP ×2 (09:38→21:24)
[2024-06-04] MEDS: DIVALPROEX SODIUM 125 MG TABLET.DR PO ×2 (09:44→21:23)
[2024-06-04] MEDS: ATORVASTATIN CALCIUM 40 MG TABLET 80 MG PO (21:23)
[2024-06-04 23:10] LABS: Hematocrit 29.5 % (42.0-54.0); Hemoglobin 9.6 g/dL (14.0-18.0)
[2024-06-05] MEDS: CEFAZOLIN SODIUM/DEXTROSE,ISO 1 GM/50 ML PREMIX IV ×2 (00:12→08:30)
[2024-06-05] MEDS: KETOROLAC TROMETHAMINE 30 MG/ML VIAL 15 MG IVP ×2 (02:55→08:31)
[2024-06-05] MEDS: SPIRONOLACTONE 25 MG TABLET 50 MG PO (05:20)
[2024-06-05] MEDS: OXYCODONE HCL 5 MG TABLET 10 MG PO ×2 (05:23→11:27)
[2024-06-05 05:30] VITALS: BP 109/68; PULSE 77; TEMP 36.3; O2SAT 95
[2024-06-05 06:19] LABS: Basophils Percent Auto 0.6 % (0.2-2.0); Eosinophils Absolute Auto 0.2 10^3/uL (0.0-0.7); Eosinophils Percent Auto 3.1 % (0.9-7.0); Hematocrit 29.5 % (42.0-54.0); Hemoglobin 9.5 g/dL (14.0-18.0); Immature Granulocytes Abs Auto 0.05 10^3/uL (0.00-0.03); Immature Granulocytes Pct Auto 0.8 % (0.0-0.5); Lymphocytes Percent Auto 30.3 % (20.5-60.0); Mean Corpuscular HGB Conc 32.2 g/dL (29.9-35.2); Mean Corpuscular Hemoglobin 29.9 pg (25.9-34.0); Mean Corpuscular Volume 92.8 fL (80.0-94.0); Monocytes Absolute Auto 0.5 10^3/uL (0.3-0.8); Monocytes Percent Auto 8.3 % (1.7-12.0); Neutrophils Absolute Auto 3.7 10^3/uL (1.4-6.5); Neutrophils Percent Auto 56.9 % (43.0-75.0); Platelet Count 296 10^3/uL (150-450); Red Blood Count 3.18 10^6/uL (4.70-6.10); Red Cell Distribution Width 15.9 % (11.0-15.0); White Blood Count 6.5 10^3/uL (4.0-11.0)
[2024-06-05] MEDS: FOLIC ACID 1 MG TABLET PO (08:29)
[2024-06-05] MEDS: FERROUS SULFATE 325 MG TABLET PO (08:29)
[2024-06-05] MEDS: CARVEDILOL 6.25 MG TABLET PO (08:29)
[2024-06-05] MEDS: ISOSORBIDE MONONITRATE 30 MG TAB.ER.24H 90 MG PO (08:30)
[2024-06-05] MEDS: BUMETANIDE 1 MG TABLET 3 MG PO (08:30)
[2024-06-05] MEDS: DIVALPROEX SODIUM 500 MG TABLET.DR PO (08:30)
[2024-06-05] MEDS: GABAPENTIN 400 MG CAPSULE 800 MG PO (08:30)
[2024-06-05] MEDS: DIVALPROEX SODIUM 125 MG TABLET.DR PO (08:30)
[2024-06-05] MEDS: FINASTERIDE 5 MG TABLET PO (08:30)
[2024-06-05] MEDS: SERTRALINE HCL 50 MG TABLET 25 MG PO (08:30)
[2024-06-05] MEDS: PREDNISOLONE ACETATE OP 1% SUSP 100 DROPS/5 ML 1 DROP OP (08:31)
[2024-06-05 08:38] VITALS: BP 149/76; PULSE 74; TEMP 36.6; O2SAT 96
--- NOTE | 2024-06-05 10:29 | P.DS_ITS ---
DS: Providers Provider Date of admission: 06/02/24 11:12 Primary care physician: Elin Liz MD Admitting clinician: Shaikh Taryn Attending physician on admission: Shaikh Taryn Consults: 06/01/24 13:30 Occupational Therapy Eval and Treat Routine Reason for consultation: Ambulatory dysfunction/weakness Physical Therapy Eval and Treat Routine Reason for consultation: Ambulatory dysfunction/weakness 06/01/24 13:32 Consult to Podiatry Routine Consulting Provider: Bob Emery Reason for consultation: wound dehiscence Attending physician on discharge: Shaikh Taryn Discharging clinician: Shaikh Taryn Anticipated date of discharge: 06/05/24 DS: Diagnosis Discharge Diagnosis (1) Dehiscence of operative wound: Qualifiers: Encounter type: subsequent encounter Qualified Code(s): T81.31XD - Disruption of external operation (surgical) wound, not elsewhere classified, subsequent encounter (2) Anemia due to blood loss: (3) HFrEF (heart failure with reduced ejection fraction): (4) Seizures: (5) CAD (coronary artery disease): Qualifiers: Coronary Disease-Associated Artery/Lesion type: [place] artery [place] vs. transplanted heart: [place] heart Associated angina: without angina Qualified Code(s): I25.10 - Atherosclerotic heart disease of [place] coronary artery without angina pectoris (6) A-fib: Qualifiers: Atrial fibrillation type: paroxysmal Qualified Code(s): I48.0 - Paroxysmal atrial fibrillation (7) COPD (chronic obstructive pulmonary disease): Qualifiers: COPD type: unspecified COPD Qualified Code(s): J44.9 - Chronic obstructive pulmonary disease, unspecified (8) HLD (hyperlipidemia): Qualifiers: Hyperlipidemia type: unspecified Qualified Code(s): E78.5 - Hyperlipidemia, unspecified DS: Summary Hospital Course Hospital Course: 63 y o male underwent revision of right transmetatarsal amputation with delayed primary closure of ulceration and application of total contact cast on the but developed wound dehiscence post operatively and bleeding. Plan was to take him to OR for possible hematoma evacuation but surgery was postponed because patient felt overall weak, tired and very pale on exam. Patient was sent to ED for evaluation to ensure he is not significantly anemia from bleeding and to ensure he is medically optimized for surgery. His work up revealed Hb of 9 initially but gradually declined during the course of admission. He underwent hematoma evacuation on . He required 2 units of PRBC during admission. His Hb is now stable. He can be discharged home today. He will need f/u with PCP and Podiatry as outpatient. Status at Discharge Functional status at discharge: independent ambulation Overall status at discharge: patient is back to baseline Time Spent with Patient Time attestation: Total time spent providing and/or coordinating discharge services: Time spent: greater than 30 minutes Exam Constitutional Vital Signs, click to edit/add: Last Vital Signs Temp 97.8 F 06/05/24 08:38 Pulse 74 06/05/24 08:38 Resp 16 06/05/24 08:38 BP 149/76 H 06/05/24 08:38 Pulse Ox 96 06/05/24 08:38 O2 Del Method Room Air 06/05/24 08:38 O2 Flow Rate 2 06/02/24 12:38 Documenting provider has reviewed patient's vital signs: yes Common normals: oriented x3 General appearance: cooperative Respiratory Common normals: normal respiratory effort and clear to auscultation bilaterally Effort & inspection: able to speak in complete sentences Auscultation: clear to auscultation bilaterally Cardio Common normals: regular rate, S1 normal heart sound and S2 normal heart sound Rate: regular rate Heart sounds: S1 normal and S2 normal Extremity Other: Right foot -dressing in place. Neuro Common normals: oriented x3, moves all extremities and no focal motor deficits Psych Common normals: mental status grossly normal, denies hallucinations, denies homicidal ideation and denies suicidal ideation DS: Data Data Completed and Pending Labs on day of discharge: Labs from last 24 hours 06/05/24 06/04/24 06/03/24 05:55 23:00 07:40 WBC 6.5 RBC 3.18 L Hgb 9.5 L 9.6 L Hct 29.5 L 29.5 L MCV 92.8 MCH 29.9 MCHC 32.2 RDW 15.9 H Plt Count 296 MPV 10.0 Neut % (Auto) 56.9 Lymph % (Auto) 30.3 [place] % (Auto) 8.3 Eos % (Auto) 3.1 Baso % (Auto) 0.6 Neut # (Auto) 3.7 Lymph # (Auto) 2.0 [place] # (Auto) 0.5 Eos # (Auto) 0.2 Baso # (Auto) 0.0 Abs Immat Gran (auto) 0.05 H Imm/Tot Granulo (auto) 0.8 H Crossmatch See Detail Preliminary micro results at discharge 06/01/24 12:17 Blood Culture Result 2 - Preliminary Blood NO GROWTH AT 36-48 HOURS. FINAL TO FOLLOW. 06/01/24 12:00 Blood Culture Result 1 - Preliminary Blood - Left Forearm NO GROWTH AT 36-48 HOURS. FINAL TO FOLLOW. Discharge Plan Discharge Disposition: Home, Self-Care Condition: Fair Discharge Medications: Continued atorvastatin 80 mg tablet 80 mg PO .QHS aspirin 81 mg tablet,delayed release (DR/EC) 81 mg PO .QD bumetanide 1 mg tablet 3 mg PO Q12H Eliquis 5 mg tablet 5 mg PO BID metformin 500 mg tablet 500 mg PO BID isosorbide mononitrate 30 mg tablet extended release 24 hr 90 mg PO .QD gabapentin 800 mg tablet 800 mg PO Q8H nitroglycerin 0.4 mg tablet, sublingual 0.4 mg sublingual Q5M PRN (Reason: chest pain) oxycodone 5 mg tablet 5 mg PO Q8H PRN (Reason: pain) moxifloxacin 0.5 % drops 1 drp ophthalmic (eye) QID Xtampza ER 18 mg cap,sprinkl,ER12hr(DONT CRUSH) 18 mg PO Q12H prednisolone acetate 1 % drops,suspension 1 drp ophthalmic (eye) Q12H Patient Comments: BOTH EYES spironolactone 50 mg tablet 50 mg PO .QD (DME) pen needle, diabetic [Unifine Pentips] 32 gauge x 5/32 needle MISCELLANEOUS sacubitril-valsartan [Entresto] 24-26 mg tablet 1 tab PO BID carvedilol [Coreg] 6.25 mg tablet 6.25 mg PO BID Rx Instructions: must administer with a meal/food diclofenac sodium 1 % gel 2 g TOPICAL Q4H PRN (Reason: to each affected area) Patient Comments: APPLY 2-4 GRAMS TOPICALLY TO EACH EFFECTED AREA EVERY 4-6 HOURS. MAX OF 32 GRAMS DAILY potassium chloride 20 mEq/15 mL liquid 20 meq PO DAILY metolazone 2.5 mg tablet 2.5 mg PO DAILY PRN (Reason: edema) sertraline 25 mg tablet 25 mg PO DAILY methotrexate sodium 2.5 mg tablet 17.5 mg PO QWEEK folic acid 1 mg tablet 1 mg PO DAILY cholecalciferol (vitamin D3) 25 mcg (1,000 unit) capsule 1,000 unit PO DAILY dapagliflozin propanediol [Farxiga] 10 mg tablet 10 mg PO DAILY valacyclovir 1 gram tablet 1,000 mg PO Q12H Ozempic 1 mg/dose (4 mg/3 mL) pen injector 1 mg subcut QWEEK divalproex 125 mg tablet,delayed release (DR/EC) 125 mg PO Q12H Quviviq 50 mg tablet 50 mg PO DAILY ferrous sulfate 325 mg (65 mg iron) tablet 325 mg PO DAILY ergocalciferol (vitamin D2) 1,250 mcg (50,000 unit) capsule 1,250 mcg PO QWEEK fluticasone propionate [24 Hour Allergy Relief] 50 mcg/actuation spray,suspension 1 spray intranasal DAILY Rx Instructions: administer into each nostril divalproex 500 mg tablet,delayed release (DR/EC) 500 mg PO Q12H finasteride 5 mg tablet 5 mg PO DAILY tiotropium bromide [Spiriva with HandiHaler] 18 mcg capsule, w/inhalation device 1 cap inhalation DAILY Rx Instructions: puncture 1 cap using device; one dose = 2 inhalations Activity: increase activity as tolerated Diet: advance to your usual diet Print Language: Uz[place] Forms: Portal Instructions Follow Up Appointments: f/u with PCP in one week F/u with Podiatry in 1-2 weeks
--- NOTE | 2024-06-07 14:27 | CM.DCFOLLOWU ---
1st attempt. No answer
--- NOTE | 2024-06-08 14:18 | CM.DCFOLLOWU ---
Contacted and back to hospital and transferred to [facility]
--- NOTE | 2024-06-20 10:54 | SWNOTE1 ---
[facility] called and pt is current with them. They were trying to see which ED pt went to on the 6th so they can get further information for continuity of care. BALA sent ED note to [facility] for continuity of care for pt.
== END 2024-06-05 12:05 | disposition home or self-care (01) | DRG 565 ==
LOC: ER 13:36 → MS 14:43
PROVIDERS: Podiatrist Foot & Ankle Surgery; Admitting Provider Internal Medicine; Emergency Provider Emergency Medicine; PCP Family Medicine; Visit Provider Internal Medicine
PROC: 0H9MXZZ Drainage of Right Foot Skin, External Approach (ICD-10-PCS; principal; 2024-06-02 08:30)
DX: T87.89 Other complications of amputation stump (principal); I50.20 Unspecified systolic (congestive) heart failure; Z87.891 Personal history of nicotine dependence; Z98.84 Bariatric surgery status; I25.10 Atherosclerotic heart disease of native coronary artery without angina pectoris; I11.0 Hypertensive heart disease with heart failure; Z86.718 Personal history of other venous thrombosis and embolism; I25.2 Old myocardial infarction; Z86.711 Personal history of pulmonary embolism; G47.30 Sleep apnea, unspecified; M06.9 Rheumatoid arthritis, unspecified; Z79.01 Long term (current) use of anticoagulants; Z95.828 Presence of other vascular implants and grafts; Z79.85 Long-term (current) use of injectable non-insulin antidiabetic drugs; E78.5 Hyperlipidemia, unspecified; J43.9 Emphysema, unspecified; I48.0 Paroxysmal atrial fibrillation; M35.9 Systemic involvement of connective tissue, unspecified; E11.40 Type 2 diabetes mellitus with diabetic neuropathy, unspecified; Z79.82 Long term (current) use of aspirin; D50.0 Iron deficiency anemia secondary to blood loss (chronic); R56.9 Unspecified convulsions; Z79.84 Long term (current) use of oral hypoglycemic drugs; E11.621 Type 2 diabetes mellitus with foot ulcer
CPT/HCPCS: 29515; 36415; 36430; 73630; 80053; 83605; 85014; 85018; 85025; 85610; 86850; 86900; 86901; 86923; 87040; 94640; 94761; 96374; 97605; 99285; G0378; G0463; J0690; J1885; J2250; J2270; J2405; J3010; J3370; P9016

== ENCOUNTER 2024-06-01 15:17 | Outpatient (OUT) | payer MEDICARE, MEDICAID, SELFPAY | END 2024-06-01 15:18 | disposition home or self-care (01) | LOC: WC 15:17 | PROVIDERS: PCP Family Medicine; Visit Provider Physician Assistant | DX: E11.621 Type 2 diabetes mellitus with foot ulcer (principal); L97.412 Non-pressure chronic ulcer of right heel and midfoot with fat layer exposed | CPT/HCPCS: G0463 ==

== ENCOUNTER 2024-06-16 15:58 | Emergency (ER) | payer MEDICARE, MEDICAID, SELFPAY ==
[2024-06-16 16:04] VITALS: BP 156/69; PULSE 76; TEMP 36.9; O2SAT 99; BMI 37.8
--- NOTE | 2024-06-16 18:21 | ED.GENADUL1 ---
Documented by User: Margareth Sheehan DO 06/16/24 18:23 HPI HPI - General Adult General Chief complaint: Skin/Abscess/Foreign Body Stated complaint: Wound Check Time Seen by Provider: 06/16/24 18:02 Mode of arrival: walk-in History of Present Illness HPI narrative: Patient presents to ED complaining of wound dehiscence on his right lower extremity. Patient has a history of surgery on the right foot. He has been in the hospital a couple of times for wound dehisce because he gets excessive swelling edema and then the wound will split open. It has been repaired by Dr. Emery. Patient states Dr. Emery is to be contacted when he arrives. I called and spoke to Dr. Emery and he wants his labs checked to see where his hemoglobin is and if stable he can be rewrapped and sent home to see him in the office tomorrow morning. If there is any question that he is unstable or the hemoglobin is low we will admit the patient here and he will see him in the hospital. Patient is stable denies any fevers nausea vomiting. He is alert and oriented. He said he had to do 3 dressing changes today and each dressing gets saturated with blood and fluid. Related Data Home Medications ?Medication ?Instructions ?Recorded ?Confirmed apixaban 5 mg tablet (Eliquis) 5 mg PO BID 11/10/23 06/01/24 aspirin 81 mg tablet,delayed 81 mg PO .QD 11/10/23 06/01/24 release atorvastatin 80 mg tablet 80 mg PO .QHS 11/10/23 06/01/24 bumetanide 1 mg tablet 3 mg PO Q12H 11/10/23 06/01/24 carvedilol 6.25 mg tablet (Coreg) 6.25 mg PO BID 11/10/23 06/01/24 diclofenac sodium 1 % topical gel 2 g topical Q4H PRN to each 11/10/23 06/01/24 affected area gabapentin 800 mg tablet 800 mg PO Q8H 11/10/23 06/01/24 isosorbide mononitrate 30 mg 90 mg PO .QD 11/10/23 06/01/24 tablet,extended release 24 hr metformin 500 mg tablet 500 mg PO BID 11/10/23 06/01/24 moxifloxacin 0.5 % eye drops 1 drp ophthalmic (eye) QID 11/10/23 06/01/24 nitroglycerin 0.4 mg sublingual 0.4 mg sublingual Q5M PRN chest 11/10/23 06/01/24 tablet pain oxycodone 5 mg tablet 5 mg PO Q8H PRN pain 11/10/23 06/01/24 oxycodone myristate 18 mg capsule 18 mg PO Q12H 11/10/23 06/01/24 sprinkle extended release 12hr(DON'T CRUSH) (Xtampza ER) pen needle, diabetic 32 gauge x 11/10/23 06/01/24 5/32 (Unifine Pentips) prednisolone acetate 1 % eye 1 drp ophthalmic (eye) Q12H 11/10/23 06/01/24 drops,suspension sacubitril 24 mg-valsartan 26 mg 1 tab PO BID 11/10/23 06/01/24 tablet (Entresto) spironolactone 50 mg tablet 50 mg PO .QD 11/10/23 06/01/24 cholecalciferol (vitamin D3) 25 1,000 unit PO DAILY 05/24/24 06/01/24 mcg (1,000 unit) capsule dapagliflozin propanediol 10 mg 10 mg PO DAILY 05/24/24 06/01/24 tablet (Farxiga) daridorexant 50 mg tablet (Quviviq) 50 mg PO DAILY 05/24/24 06/01/24 divalproex 125 mg tablet,delayed 125 mg PO Q12H 05/24/24 06/01/24 release divalproex 500 mg tablet,delayed 500 mg PO Q12H 05/24/24 06/01/24 release ergocalciferol (vitamin D2) 1,250 1,250 mcg PO QWEEK 05/24/24 06/01/24 mcg (50,000 unit) capsule ferrous sulfate 325 mg (65 mg 325 mg PO DAILY 05/24/24 06/01/24 iron) tablet finasteride 5 mg tablet 5 mg PO DAILY 05/24/24 06/01/24 fluticasone propionate 50 1 spray intranasal DAILY 05/24/24 06/01/24 mcg/actuation nasal spray,suspension (24 Hour Allergy Relief) folic acid 1 mg tablet 1 mg PO DAILY 05/24/24 06/01/24 methotrexate sodium 2.5 mg tablet 17.5 mg PO QWEEK 05/24/24 06/01/24 metolazone 2.5 mg tablet 2.5 mg PO DAILY PRN edema 05/24/24 06/01/24 potassium chloride 20 mEq/15 mL 20 meq PO DAILY 05/24/24 06/01/24 oral liquid semaglutide 1 mg/dose (4 mg/3 mL) 1 mg subcut QWEEK 05/24/24 06/01/24 subcutaneous pen injector (Ozempic) sertraline 25 mg tablet 25 mg PO DAILY 05/24/24 06/01/24 tiotropium bromide 18 mcg capsule 1 cap inhalation DAILY 05/24/24 06/01/24 with inhalation device (Spiriva with HandiHaler) valacyclovir 1 gram tablet 1,000 mg PO Q12H 05/24/24 06/01/24 Allergies Allergy/AdvReac Type Severity Reaction Status Date / Time metoclopramide (From Reglan) AdvReac Intermediate Rash Verified 06/01/24 11:49 polyethylene glycol (From AdvReac Intermediate Rash Verified 06/01/24 11:49 Golytely) polyethylene glycol 3350 AdvReac Intermediate Rash Verified 06/01/24 11:49 (From Golytely) potassium chloride (From AdvReac Intermediate Rash Verified 06/01/24 11:49 Golytely) promethazine (From Phenergan) AdvReac Intermediate rash Verified 06/01/24 11:49 sodium (From Golytely) AdvReac Intermediate Rash Verified 06/01/24 11:49 sodium bicarbonate (From AdvReac Intermediate Rash Verified 06/01/24 11:49 Golytely) sodium chloride (From AdvReac Intermediate Rash Verified 06/01/24 11:49 Golytely) sodium sulfate (From AdvReac Intermediate Rash Verified 06/01/24 11:49 Golytely) Sulfa (Sulfonamide AdvReac Intermediate Rash Verified 06/01/24 11:49 Antibiotics) Opioid HPI Opioid Management Most Recent Opioid Data: Last Pain Scale 9 06/16/24 19:36 06/16/24 Last ORT Total Score 0 06/01/24 14:43 06/01/24 Last ORT Risk Category Low Risk 06/01/24 14:43 06/01/24 Review of Systems ROS Status of ROS 10 or more systems reviewed and unremarkable except as noted in history and below [facility] Medical History (Updated 06/16/24 @ 20:54 by Armand Ruiz MD) 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) Dehiscence of operative wound ?T81.31XA - Disruption of external operation (surgical) wound, not elsewhere classified, initial encounter (ICD-10) HLD (hyperlipidemia) ?E78.5 - Hyperlipidemia, unspecified (ICD-10) HFrEF (heart failure with reduced ejection fraction) ?I50.20 - Unspecified systolic (congestive) heart failure (ICD-10) [place] filter in place ?Z95.828 - Presence of other vascular implants and grafts (ICD-10) History of blood transfusion ?Z92.89 - Personal history of other medical treatment (ICD-10) Anticoagulated ?Z79.01 - moth exterminator (current) use of anticoagulants (ICD-10) Anemia ?D64.9 - Anemia, unspecified (ICD-10) Emphysema lung ?J43.9 - Emphysema, unspecified (ICD-10) Seizures ?R56.9 - Unspecified convulsions (ICD-10) Chronic kidney disease ?N18.9 - Chronic kidney disease, unspecified (ICD-10) Ulcer of right heel and midfoot with fat layer exposed ?L97.412 - Non-pressure chronic ulcer of right heel and midfoot with fat layer exposed (ICD-10) Gastroparesis ?K31.84 - Gastroparesis (ICD-10) Ankylosing spondylitis ?M45.9 - Ankylosing spondylitis of unspecified sites in spine (ICD-10) Rheumatoid arthritis ?M06.9 - Rheumatoid arthritis, unspecified (ICD-10) Sleep apnea ?G47.30 - Sleep apnea, unspecified (ICD-10) Coronary atherosclerosis ?I25.10 - Atherosclerotic heart disease of havasupai coronary artery without angina pectoris (ICD-10) Inguinal hernia ?K40.90 - Unilateral inguinal hernia, without obstruction or gangrene, not specified as recurrent (ICD-10) Pulmonary embolism ?I26.99 - Other pulmonary embolism without acute cor pulmonale (ICD-10) Myocardial infarction ?I21.9 - Acute myocardial infarction, unspecified (ICD-10) Glaucoma ?H40.9 - Unspecified glaucoma (ICD-10) Diabetes ?E11.9 - Type 2 diabetes mellitus without complications (ICD-10) DVT (deep venous thrombosis) ?I82.409 - Acute embolism and thrombosis of unspecified deep veins of unspecified lower extremity (ICD-10) Heart failure ?I50.9 - Heart failure, unspecified (ICD-10) Dyspnea on exertion ?R06.09 - Other forms of dyspnea (ICD-10) Conjunctival ulcer ?H10.89 - Other conjunctivitis (ICD-10) Autoimmune disease ?M35.9 - Systemic involvement of connective tissue, unspecified (ICD-10) Tremor ?R25.1 - Tremor, unspecified (ICD-10) Chest pain ?R07.9 - Chest pain, unspecified (ICD-10) Lower extremity edema ?R60.0 - Localized edema (ICD-10) Pre-operative cardiovascular examination ?Z01.810 - Encounter for preprocedural cardiovascular examination (ICD-10) Diabetic ulcer of toe ?E11.621 - Type 2 diabetes mellitus with foot ulcer (ICD-10) ?L97.509 - Non-pressure chronic ulcer of other part of unspecified foot with unspecified severity (ICD-10) Cardiomegaly ?I51.7 - Cardiomegaly (ICD-10) DM neuropathy, type II diabetes mellitus ?E11.40 - Type 2 diabetes mellitus with diabetic neuropathy, unspecified (ICD-10) DM2 (diabetes mellitus, type 2) ?E11.9 - Type 2 diabetes mellitus without complications (ICD-10) A-fib ?I48.91 - Unspecified atrial fibrillation (ICD-10) CHF (congestive heart failure) ?I50.9 - Heart failure, unspecified (ICD-10) COPD (chronic obstructive pulmonary disease) ?J44.9 - Chronic obstructive pulmonary disease, unspecified (ICD-10) CAD (coronary artery disease) ?I25.10 - Atherosclerotic heart disease of havasupai coronary artery without angina pectoris (ICD-10) Surgical History (Updated 05/27/24 @ 07:48 by Carolina Hernandez) History of foot surgery ?Z98.890 - Other specified postprocedural states (ICD-10) H/O colonoscopy ?Z98.890 - Other specified postprocedural states (ICD-10) H/O gastric bypass ?Z98.84 - Bariatric surgery status (ICD-10) H/O skin graft ?Z94.5 - Skin transplant status (ICD-10) Amputated toe (11/11/23) ?S98.139A - Complete traumatic amputation of one unspecified lesser toe, initial encounter (ICD-10) History of appendectomy ?Z90.49 - Acquired absence of other specified parts of digestive tract (ICD-10) Gastric bypass status for obesity ?Z98.84 - Bariatric surgery status (ICD-10) Family History Mother Family history of CHF (congestive heart failure) Family history of COPD (chronic obstructive pulmonary disease) Family history of cancer Family history of hypertension Family history of myocardial infarction Father Family history of CHF (congestive heart failure) Family history of COPD (chronic obstructive pulmonary disease) Family history of cancer Family history of hypertension Family history of myocardial infarction Family history of stroke Brother Family history of CHF (congestive heart failure) Family history of diabetes mellitus Family history of hypertension Family history of myocardial infarction Family history of stroke Sister Family history of diabetes mellitus Family history of hypertension Family history of myocardial infarction Social History Within the past year, how often did you have a drink containing alcohol: never Score interpretation: A score less than 4 is consistent with normal alcohol consumption. Smoking status: Former smoker Non-prescribed substance use: denies use Previous occupational history: disabled Highest level of school completed/degree received: Bachelor's degree Are you now , , , , never or living with a partner: Little interest or pleasure in doing things: not at all Feeling down, depressed, or hopeless: not at all Feel stressed/tense/nervous/anxious/difficulty sleeping: not at all Exam Narrative Exam Narrative: General: alert, no acute distress Cardiovascular: regular rate and rhythm, normal peripheral perfusion. Respiratory: Lungs CTA, respirations non labored. Extremities: Mild dehisced wound right foot from previous surgery with pain and fluid leakage. Lower extremity edema bilaterally.. Neurological: oriented x 4, LOC appropriate for age. Constitutional Vital Signs, click to edit/add: Last Vital Signs Temp 98.5 F 06/16/24 16:04 Pulse 76 06/16/24 16:04 Resp 18 06/16/24 16:04 BP 156/69 H 06/16/24 16:04 Pulse Ox 99 06/16/24 16:04 O2 Del Method Room Air 06/16/24 16:04 Course Vital Signs Vital signs: Vital Signs Temperature 98.5 F 06/16/24 16:04 Pulse Rate 76 06/16/24 16:04 Respiratory Rate 18 06/16/24 16:04 Blood Pressure 156/69 H 06/16/24 16:04 Pulse Oximetry 99 06/16/24 16:04 Oxygen Delivery Method Room Air 06/16/24 16:04 Temperature 98.5 F 06/16/24 16:04 Pulse Rate 76 06/16/24 16:04 Respiratory Rate 18 06/16/24 16:04 Blood Pressure 156/69 H 06/16/24 16:04 Pulse Oximetry 99 06/16/24 16:04 Oxygen Delivery Method Room Air 06/16/24 16:04 Medical Decision Making Lab Data Labs: Lab Results 06/16/24 Range/Units 19:50 WBC 8.2 (4.0-11.0) 10^3/uL RBC 3.61 L (4.70-6.10) 10^6/uL Hgb 10.8 L (14.0-18.0) g/dL Hct 34.3 L (42.0-54.0) % MCV 95.0 H (80.0-94.0) fL MCH 29.9 (25.9-34.0) pg MCHC 31.5 (29.9-35.2) g/dL RDW 14.5 (11.0-15.0) % Plt Count 257 (150-450) 10^3/uL MPV 11.2 (9.5-13.5) fL Neut % (Auto) 64.0 (43.0-75.0) % Lymph % (Auto) 20.0 L (20.5-60.0) % [place] % (Auto) 12.9 H (1.7-12.0) % Eos % (Auto) 1.8 (0.9-7.0) % Baso % (Auto) 0.9 (0.2-2.0) % Neut # (Auto) 5.3 (1.4-6.5) 10^3/uL Lymph # (Auto) 1.7 (1.2-3.8) 10^3/uL [place] # (Auto) 1.1 H (0.3-0.8) 10^3/uL Eos # (Auto) 0.2 (0.0-0.7) 10^3/uL Baso # (Auto) 0.1 (0.0-0.1) 10^3/uL Abs Immat Gran (auto) 0.03 (0.00-0.03) 10^3/uL Imm/Tot Granulo (auto) 0.4 (0.0-0.5) % PT 10.8 (9.0-11.6) sec INR 1.02 Sodium 140 (136-145) mmol/L Potassium 4.3 (3.5-5.1) mmol/L Chloride 103 (98-107) mmol/L Carbon Dioxide 29.8 (21.0-32.0) mmol/L Anion Gap 11.5 BUN 18.0 (7.0-18.0) mg/dL Creatinine 0.94 (0.70-1.30) mg/dL Est GFR ( Amer) >60 (>=60 mL/min/1.73m^2) Est GFR (Non-Af Amer) >60 (>=60 mL/min/1.73m^2) BUN/Creatinine Ratio 19.1 Glucose 88 (74-106) mg/dL Calcium 8.7 (8.5-10.1) mg/dL Total Bilirubin 0.9 (0.2-1.0) mg/dL AST 19 (15-37) U/L ALT 15 L (16-63) U/L Alkaline Phosphatase 75 (46-116) U/L Total Protein 7.2 (6.4-8.2) g/dL Albumin 3.1 L (3.4-5.0) g/dL Globulin 4.1 g/dL Albumin/Globulin Ratio 0.8 Discharge Plan Discharge Chief Complaint: Skin/Abscess/Foreign Body Clinical Impression: Dehiscence of wound Patient Disposition: Home, Self-Care Time of Disposition Decision: 20:53 Condition: Good Mode of Transportation: Private Vehicle Prescriptions / Home Meds: No Action atorvastatin 80 mg tablet 80 mg PO .QHS aspirin 81 mg tablet,delayed release (DR/EC) 81 mg PO .QD bumetanide 1 mg tablet 3 mg PO Q12H Eliquis 5 mg tablet 5 mg PO BID metformin 500 mg tablet 500 mg PO BID isosorbide mononitrate 30 mg tablet extended release 24 hr 90 mg PO .QD gabapentin 800 mg tablet 800 mg PO Q8H nitroglycerin 0.4 mg tablet, sublingual 0.4 mg sublingual Q5M PRN (Reason: chest pain) oxycodone 5 mg tablet 5 mg PO Q8H PRN (Reason: pain) moxifloxacin 0.5 % drops 1 drp ophthalmic (eye) QID Xtampza ER 18 mg cap,sprinkl,ER12hr(DONT CRUSH) 18 mg PO Q12H prednisolone acetate 1 % drops,suspension 1 drp ophthalmic (eye) Q12H Patient Comments: BOTH EYES spironolactone 50 mg tablet 50 mg PO .QD (DME) pen needle, diabetic [Unifine Pentips] 32 gauge x 5/32 needle MISCELLANEOUS sacubitril-valsartan [Entresto] 24-26 mg tablet 1 tab PO BID carvedilol [Coreg] 6.25 mg tablet 6.25 mg PO BID Rx Instructions: must administer with a meal/food diclofenac sodium 1 % gel 2 g TOPICAL Q4H PRN (Reason: to each affected area) Patient Comments: APPLY 2-4 GRAMS TOPICALLY TO EACH EFFECTED AREA EVERY 4-6 HOURS. MAX OF 32 GRAMS DAILY potassium chloride 20 mEq/15 mL liquid 20 meq PO DAILY metolazone 2.5 mg tablet 2.5 mg PO DAILY PRN (Reason: edema) sertraline 25 mg tablet 25 mg PO DAILY methotrexate sodium 2.5 mg tablet 17.5 mg PO QWEEK folic acid 1 mg tablet 1 mg PO DAILY cholecalciferol (vitamin D3) 25 mcg (1,000 unit) capsule 1,000 unit PO DAILY dapagliflozin propanediol [Farxiga] 10 mg tablet 10 mg PO DAILY valacyclovir 1 gram tablet 1,000 mg PO Q12H Ozempic 1 mg/dose (4 mg/3 mL) pen injector 1 mg subcut QWEEK divalproex 125 mg tablet,delayed release (DR/EC) 125 mg PO Q12H Quviviq 50 mg tablet 50 mg PO DAILY ferrous sulfate 325 mg (65 mg iron) tablet 325 mg PO DAILY ergocalciferol (vitamin D2) 1,250 mcg (50,000 unit) capsule 1,250 mcg PO QWEEK fluticasone propionate [24 Hour Allergy Relief] 50 mcg/actuation spray,suspension 1 spray intranasal DAILY Rx Instructions: administer into each nostril divalproex 500 mg tablet,delayed release (DR/EC) 500 mg PO Q12H finasteride 5 mg tablet 5 mg PO DAILY tiotropium bromide [Spiriva with HandiHaler] 18 mcg capsule, w/inhalation device 1 cap inhalation DAILY Rx Instructions: puncture 1 cap using device; one dose = 2 inhalations Print Language: Cymraes Instructions: Wound Dehiscence (ED) Additional Instructions: Call Dr. Emery's office in the morning at 8 AM and he will see you tomorrow Referrals: Elin Liz MD [Primary Care Provider] - 1 week Documented by User: Armand Ruiz MD 06/16/24 20:55 HPI HPI - General Adult General Chief complaint: Skin/Abscess/Foreign Body Stated complaint: Wound Check Time Seen by Provider: 06/16/24 18:02 Related Data Home Medications ?Medication ?Instructions ?Recorded ?Confirmed apixaban 5 mg tablet (Eliquis) 5 mg PO BID 11/10/23 06/01/24 aspirin 81 mg tablet,delayed 81 mg PO .QD 11/10/23 06/01/24 release atorvastatin 80 mg tablet 80 mg PO .QHS 11/10/23 06/01/24 bumetanide 1 mg tablet 3 mg PO Q12H 11/10/23 06/01/24 carvedilol 6.25 mg tablet (Coreg) 6.25 mg PO BID 11/10/23 06/01/24 diclofenac sodium 1 % topical gel 2 g topical Q4H PRN to each 11/10/23 06/01/24 affected area gabapentin 800 mg tablet 800 mg PO Q8H 11/10/23 06/01/24 isosorbide mononitrate 30 mg 90 mg PO .QD 11/10/23 06/01/24 tablet,extended release 24 hr metformin 500 mg tablet 500 mg PO BID 11/10/23 06/01/24 moxifloxacin 0.5 % eye drops 1 drp ophthalmic (eye) QID 11/10/23 06/01/24 nitroglycerin 0.4 mg sublingual 0.4 mg sublingual Q5M PRN chest 11/10/23 06/01/24 tablet pain oxycodone 5 mg tablet 5 mg PO Q8H PRN pain 11/10/23 06/01/24 oxycodone myristate 18 mg capsule 18 mg PO Q12H 11/10/23 06/01/24 sprinkle extended release 12hr(DON'T CRUSH) (Xtampza ER) pen needle, diabetic 32 gauge x 11/10/23 06/01/24 (Unifine Pentips) prednisolone acetate 1 % eye 1 drp ophthalmic (eye) Q12H 11/10/23 06/01/24 drops,suspension sacubitril 24 mg-valsartan 26 mg 1 tab PO BID 11/10/23 06/01/24 tablet (Entresto) spironolactone 50 mg tablet 50 mg PO .QD 11/10/23 06/01/24 cholecalciferol (vitamin D3) 25 1,000 unit PO DAILY 05/24/24 06/01/24 mcg (1,000 unit) capsule dapagliflozin propanediol 10 mg 10 mg PO DAILY 05/24/24 06/01/24 tablet (Farxiga) daridorexant 50 mg tablet (Quviviq) 50 mg PO DAILY 05/24/24 06/01/24 divalproex 125 mg tablet,delayed 125 mg PO Q12H 05/24/24 06/01/24 release divalproex 500 mg tablet,delayed 500 mg PO Q12H 05/24/24 06/01/24 release ergocalciferol (vitamin D2) 1,250 1,250 mcg PO QWEEK 05/24/24 06/01/24 mcg (50,000 unit) capsule ferrous sulfate 325 mg (65 mg 325 mg PO DAILY 05/24/24 06/01/24 iron) tablet finasteride 5 mg tablet 5 mg PO DAILY 05/24/24 06/01/24 fluticasone propionate 50 1 spray intranasal DAILY 05/24/24 06/01/24 mcg/actuation nasal spray,suspension (24 Hour Allergy Relief) folic acid 1 mg tablet 1 mg PO DAILY 05/24/24 06/01/24 methotrexate sodium 2.5 mg tablet 17.5 mg PO QWEEK 05/24/24 06/01/24 metolazone 2.5 mg tablet 2.5 mg PO DAILY PRN edema 05/24/24 06/01/24 potassium chloride 20 mEq/15 mL 20 meq PO DAILY 05/24/24 06/01/24 oral liquid semaglutide 1 mg/dose (4 mg/3 mL) 1 mg subcut QWEEK 05/24/24 06/01/24 subcutaneous pen injector (Ozempic) sertraline 25 mg tablet 25 mg PO DAILY 05/24/24 06/01/24 tiotropium bromide 18 mcg capsule 1 cap inhalation DAILY 05/24/24 06/01/24 with inhalation device (Spiriva with HandiHaler) valacyclovir 1 gram tablet 1,000 mg PO Q12H 05/24/24 06/01/24 Allergies Allergy/AdvReac Type Severity Reaction Status Date / Time metoclopramide (From Reglan) AdvReac Intermediate Rash Verified 06/01/24 11:49 polyethylene glycol (From AdvReac Intermediate Rash Verified 06/01/24 11:49 Golytely) polyethylene glycol 3350 AdvReac Intermediate Rash Verified 06/01/24 11:49 (From Golytely) potassium chloride (From AdvReac Intermediate Rash Verified 06/01/24 11:49 Golytely) promethazine (From Phenergan) AdvReac Intermediate rash Verified 06/01/24 11:49 sodium (From Golytely) AdvReac Intermediate Rash Verified 06/01/24 11:49 sodium bicarbonate (From AdvReac Intermediate Rash Verified 06/01/24 11:49 Golytely) sodium chloride (From AdvReac Intermediate Rash Verified 06/01/24 11:49 Golytely) sodium sulfate (From AdvReac Intermediate Rash Verified 06/01/24 11:49 Golytely) Sulfa (Sulfonamide AdvReac Intermediate Rash Verified 06/01/24 11:49 Antibiotics) Opioid HPI Opioid Management Most Recent Opioid Data: Last Pain Scale 9 06/16/24 19:36 06/16/24 Last ORT Total Score 0 06/01/24 14:43 06/01/24 Last ORT Risk Category Low Risk 06/01/24 14:43 06/01/24 [facility] Medical History (Updated 06/16/24 @ 20:54 by Armand Ruiz MD) 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) Dehiscence of operative wound ?T81.31XA - Disruption of external operation (surgical) wound, not elsewhere classified, initial encounter (ICD-10) HLD (hyperlipidemia) ?E78.5 - Hyperlipidemia, unspecified (ICD-10) HFrEF (heart failure with reduced ejection fraction) ?I50.20 - Unspecified systolic (congestive) heart failure (ICD-10) [place] filter in place ?Z95.828 - Presence of other vascular implants and grafts (ICD-10) History of blood transfusion ?Z92.89 - Personal history of other medical treatment (ICD-10) Anticoagulated ?Z79.01 - moth exterminator (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) use of anticoagulants (ICD-10) Anemia ?D64.9 - Anemia, unspecified (ICD-10) Emphysema lung ?J43.9 - Emphysema, unspecified (ICD-10) Seizures ?R56.9 - Unspecified convulsions (ICD-10) Chronic kidney disease ?N18.9 - Chronic kidney disease, unspecified (ICD-10) Ulcer of right heel and midfoot with fat layer exposed ?L97.412 - Non-pressure chronic ulcer of right heel and midfoot with fat layer exposed (ICD-10) Gastroparesis ?K31.84 - Gastroparesis (ICD-10) Ankylosing spondylitis ?M45.9 - Ankylosing spondylitis of unspecified sites in spine (ICD-10) Rheumatoid arthritis ?M06.9 - Rheumatoid arthritis, unspecified (ICD-10) Sleep apnea ?G47.30 - Sleep apnea, unspecified (ICD-10) Coronary atherosclerosis ?I25.10 - Atherosclerotic heart disease of [place] coronary artery without angina pectoris (ICD-10) Inguinal hernia ?K40.90 - Unilateral inguinal hernia, without obstruction or gangrene, not specified as recurrent (ICD-10) Pulmonary embolism ?I26.99 - Other pulmonary embolism without acute cor pulmonale (ICD-10) Myocardial infarction ?I21.9 - Acute myocardial infarction, unspecified (ICD-10) Glaucoma ?H40.9 - Unspecified glaucoma (ICD-10) Diabetes ?E11.9 - Type 2 diabetes mellitus without complications (ICD-10) DVT (deep venous thrombosis) ?I82.409 - Acute embolism and thrombosis of unspecified deep veins of unspecified lower extremity (ICD-10) Heart failure ?I50.9 - Heart failure, unspecified (ICD-10) Dyspnea on exertion ?R06.09 - Other forms of dyspnea (ICD-10) Conjunctival ulcer ?H10.89 - Other conjunctivitis (ICD-10) Autoimmune disease ?M35.9 - Systemic involvement of connective tissue, unspecified (ICD-10) Tremor ?R25.1 - Tremor, unspecified (ICD-10) Chest pain ?R07.9 - Chest pain, unspecified (ICD-10) Lower extremity edema ?R60.0 - Localized edema (ICD-10) Pre-operative cardiovascular examination ?Z01.810 - Encounter for preprocedural cardiovascular examination (ICD-10) Diabetic ulcer of toe ?E11.621 - Type 2 diabetes mellitus with foot ulcer (ICD-10) ?L97.509 - Non-pressure chronic ulcer of other part of unspecified foot with unspecified severity (ICD-10) Cardiomegaly ?I51.7 - Cardiomegaly (ICD-10) DM neuropathy, type II diabetes mellitus ?E11.40 - Type 2 diabetes mellitus with diabetic neuropathy, unspecified (ICD-10) DM2 (diabetes mellitus, type 2) ?E11.9 - Type 2 diabetes mellitus without complications (ICD-10) A-fib ?I48.91 - Unspecified atrial fibrillation (ICD-10) CHF (congestive heart failure) ?I50.9 - Heart failure, unspecified (ICD-10) COPD (chronic obstructive pulmonary disease) ?J44.9 - Chronic obstructive pulmonary disease, unspecified (ICD-10) CAD (coronary artery disease) ?I25.10 - Atherosclerotic heart disease of [place] coronary artery without angina pectoris (ICD-10) Surgical History (Updated 05/27/24 @ 07:48 by Carolina Hernandez) History of foot surgery ?Z98.890 - Other specified postprocedural states (ICD-10) H/O colonoscopy ?Z98.890 - Other specified postprocedural states (ICD-10) H/O gastric bypass ?Z98.84 - Bariatric surgery status (ICD-10) H/O skin graft ?Z94.5 - Skin transplant status (ICD-10) Amputated toe (11/11/23) ?S98.139A - Complete traumatic amputation of one unspecified lesser toe, initial encounter (ICD-10) History of appendectomy ?Z90.49 - Acquired absence of other specified parts of digestive tract (ICD-10) Gastric bypass status for obesity ?Z98.84 - Bariatric surgery status (ICD-10) Family History Mother Family history of CHF (congestive heart failure) Family history of COPD (chronic obstructive pulmonary disease) Family history of cancer Family history of hypertension Family history of myocardial infarction Father Family history of CHF (congestive heart failure) Family history of COPD (chronic obstructive pulmonary disease) Family history of cancer Family history of hypertension Family history of myocardial infarction Family history of stroke Brother Family history of CHF (congestive heart failure) Family history of diabetes mellitus Family history of hypertension Family history of myocardial infarction Family history of stroke Sister Family history of diabetes mellitus Family history of hypertension Family history of myocardial infarction Social History Within the past year, how often did you have a drink containing alcohol: never Score interpretation: A score less than 4 is consistent with normal alcohol consumption. Smoking status: Former smoker Non-prescribed substance use: denies use Previous occupational history: disabled Highest level of school completed/degree received: Bachelor's degree Are you now , , , , never or living with a partner: Little interest or pleasure in doing things: not at all Feeling down, depressed, or hopeless: not at all Feel stressed/tense/nervous/anxious/difficulty sleeping: not at all Exam Constitutional Vital Signs, click to edit/add: Last Vital Signs Temp 98.5 F 06/16/24 16:04 Pulse 76 06/16/24 16:04 Resp 18 06/16/24 16:04 BP 156/69 H 06/16/24 16:04 Pulse Ox 99 06/16/24 16:04 O2 Del Method Room Air 06/16/24 16:04 Course Vital Signs Vital signs: Vital Signs Temperature 98.5 F 06/16/24 16:04 Pulse Rate 76 02/06/25 16:04 Respiratory Rate 18 06/16/24 16:04 Blood Pressure 156/69 H 06/16/24 16:04 Pulse Oximetry 99 06/16/24 16:04 Oxygen Delivery Method Room Air 06/16/24 16:04 Temperature 98.5 F 06/16/24 16:04 Pulse Rate 76 06/16/24 16:04 Respiratory Rate 18 06/16/24 16:04 Blood Pressure 156/69 H 06/16/24 16:04 Pulse Oximetry 99 06/16/24 16:04 Oxygen Delivery Method Room Air 06/16/24 16:04 Medical Decision Making MDM Narrative Medical decision making narrative: Francisco JK 8:55 pm the patient was initially seen by Dr. Sheehan and signed out to me after discussing the case with her thoroughly. Hemoglobin is 10.8 tonight, significantly up from late May. Case discussed with Dr. Emery and the patient is discharged home and will be seen tomorrow in the office. Findings were discussed with the patient. Differential Diagnosis Differential Diagnosis: Wound dehiscence, anemia Lab Data Lab results reviewed: Yes I reviewed the patient's lab results Labs: Lab Results 06/16/24 Range/Units 19:50 WBC 8.2 (4.0-11.0) 10^3/uL RBC 3.61 L (4.70-6.10) 10^6/uL Hgb 10.8 L (14.0-18.0) g/dL Hct 34.3 L (42.0-54.0) % MCV 95.0 H (80.0-94.0) fL MCH 29.9 (25.9-34.0) pg MCHC 31.5 (29.9-35.2) g/dL RDW 14.5 (11.0-15.0) % Plt Count 257 (150-450) 10^3/uL MPV 11.2 (9.5-13.5) fL Neut % (Auto) 64.0 (43.0-75.0) % Lymph % (Auto) 20.0 L (20.5-60.0) % Beadle % (Auto) 12.9 H (1.7-12.0) % Eos % (Auto) 1.8 (0.9-7.0) % Baso % (Auto) 0.9 (0.2-2.0) % Neut # (Auto) 5.3 (1.4-6.5) 10^3/uL Lymph # (Auto) 1.7 (1.2-3.8) 10^3/uL Beadle # (Auto) 1.1 H (0.3-0.8) 10^3/uL Eos # (Auto) 0.2 (0.0-0.7) 10^3/uL Baso # (Auto) 0.1 (0.0-0.1) 10^3/uL Abs Immat Gran (auto) 0.03 (0.00-0.03) 10^3/uL Imm/Tot Granulo (auto) 0.4 (0.0-0.5) % PT 10.8 (9.0-11.6) sec INR 1.02 Sodium 140 (136-145) mmol/L Potassium 4.3 (3.5-5.1) mmol/L Chloride 103 (98-107) mmol/L Carbon Dioxide 29.8 (21.0-32.0) mmol/L Anion Gap 11.5 BUN 18.0 (7.0-18.0) mg/dL Creatinine 0.94 (0.70-1.30) mg/dL Est GFR ( Amer) >60 (>=60 mL/min/1.73m^2) Est GFR (Non-Af Amer) >60 (>=60 mL/min/1.73m^2) BUN/Creatinine Ratio 19.1 Glucose 88 (74-106) mg/dL Calcium 8.7 (8.5-10.1) mg/dL Total Bilirubin 0.9 (0.2-1.0) mg/dL AST 19 (15-37) U/L ALT 15 L (16-63) U/L Alkaline Phosphatase 75 (46-116) U/L Total Protein 7.2 (6.4-8.2) g/dL Albumin 3.1 L (3.4-5.0) g/dL Globulin 4.1 g/dL Albumin/Globulin Ratio 0.8 Discharge Plan Discharge Chief Complaint: Skin/Abscess/Foreign Body Clinical Impression: Dehiscence of wound Patient Disposition: Home, Self-Care Time of Disposition Decision: 20:53 Condition: Good Mode of Transportation: Private Vehicle Prescriptions / Home Meds: No Action atorvastatin 80 mg tablet 80 mg PO .QHS aspirin 81 mg tablet,delayed release (DR/EC) 81 mg PO .QD bumetanide 1 mg tablet 3 mg PO Q12H Eliquis 5 mg tablet 5 mg PO BID metformin 500 mg tablet 500 mg PO BID isosorbide mononitrate 30 mg tablet extended release 24 hr 90 mg PO .QD gabapentin 800 mg tablet 800 mg PO Q8H nitroglycerin 0.4 mg tablet, sublingual 0.4 mg sublingual Q5M PRN (Reason: chest pain) oxycodone 5 mg tablet 5 mg PO Q8H PRN (Reason: pain) moxifloxacin 0.5 % drops 1 drp ophthalmic (eye) QID Xtampza ER 18 mg cap,sprinkl,ER12hr(DONT CRUSH) 18 mg PO Q12H prednisolone acetate 1 % drops,suspension 1 drp ophthalmic (eye) Q12H Patient Comments: BOTH EYES spironolactone 50 mg tablet 50 mg PO .QD (DME) pen needle, diabetic [Unifine Pentips] 32 gauge x 5/32 needle MISCELLANEOUS sacubitril-valsartan [Entresto] 24-26 mg tablet 1 tab PO BID carvedilol [Coreg] 6.25 mg tablet 6.25 mg PO BID Rx Instructions: must administer with a meal/food diclofenac sodium 1 % gel 2 g TOPICAL Q4H PRN (Reason: to each affected area) Patient Comments: APPLY 2-4 GRAMS TOPICALLY TO EACH EFFECTED AREA EVERY 4-6 HOURS. MAX OF 32 GRAMS DAILY potassium chloride 20 mEq/15 mL liquid 20 meq PO DAILY metolazone 2.5 mg tablet 2.5 mg PO DAILY PRN (Reason: edema) sertraline 25 mg tablet 25 mg PO DAILY methotrexate sodium 2.5 mg tablet 17.5 mg PO QWEEK folic acid 1 mg tablet 1 mg PO DAILY cholecalciferol (vitamin D3) 25 mcg (1,000 unit) capsule 1,000 unit PO DAILY dapagliflozin propanediol [Farxiga] 10 mg tablet 10 mg PO DAILY valacyclovir 1 gram tablet 1,000 mg PO Q12H Ozempic 1 mg/dose (4 mg/3 mL) pen injector 1 mg subcut QWEEK divalproex 125 mg tablet,delayed release (DR/EC) 125 mg PO Q12H Quviviq 50 mg tablet 50 mg PO DAILY ferrous sulfate 325 mg (65 mg iron) tablet 325 mg PO DAILY ergocalciferol (vitamin D2) 1,250 mcg (50,000 unit) capsule 1,250 mcg PO QWEEK fluticasone propionate [24 Hour Allergy Relief] 50 mcg/actuation spray,suspension 1 spray intranasal DAILY Rx Instructions: administer into each nostril divalproex 500 mg tablet,delayed release (DR/EC) 500 mg PO Q12H finasteride 5 mg tablet 5 mg PO DAILY tiotropium bromide [Spiriva with HandiHaler] 18 mcg capsule, w/inhalation device 1 cap inhalation DAILY Rx Instructions: puncture 1 cap using device; one dose = 2 inhalations Print Language: Cymraes Instructions: Wound Dehiscence (ED) Additional Instructions: Call Dr. Emery's office in the morning at 8 AM and he will see you tomorrow Referrals: Elin Liz MD [Primary Care Provider] - 1 week
[2024-06-16] MEDS: MORPHINE SULFATE 4 MG/ML VIAL IV (19:36)
[2024-06-16 20:04] LABS: Basophils Absolute Auto 0.1 10^3/uL (0.0-0.1); Basophils Percent Auto 0.9 % (0.2-2.0); Eosinophils Absolute Auto 0.2 10^3/uL (0.0-0.7); Eosinophils Percent Auto 1.8 % (0.9-7.0); Hematocrit 34.3 % (42.0-54.0); Hemoglobin 10.8 g/dL (14.0-18.0); Immature Granulocytes Abs Auto 0.03 10^3/uL (0.00-0.03); Immature Granulocytes Pct Auto 0.4 % (0.0-0.5); Lymphocytes Absolute Auto 1.7 10^3/uL (1.2-3.8); Mean Corpuscular HGB Conc 31.5 g/dL (29.9-35.2); Mean Corpuscular Hemoglobin 29.9 pg (25.9-34.0); Mean Platelet Volume 11.2 fL (9.5-13.5); Monocytes Absolute Auto 1.1 10^3/uL (0.3-0.8); Monocytes Percent Auto 12.9 % (1.7-12.0); Neutrophils Absolute Auto 5.3 10^3/uL (1.4-6.5); Platelet Count 257 10^3/uL (150-450); Red Blood Count 3.61 10^6/uL (4.70-6.10); Red Cell Distribution Width 14.5 % (11.0-15.0); White Blood Count 8.2 10^3/uL (4.0-11.0)
[2024-06-16 20:18] LABS: Alanine Aminotransferase 15 U/L (16-63); Albumin Globulin Ratio 0.8; Albumin Level 3.1 g/dL (3.4-5.0); Alkaline Phosphatase 75 U/L (46-116); Anion Gap 11.5; Aspartate Amino Transferase 19 U/L (15-37); BUN Creatinine Ratio 19.1; Bilirubin Total 0.9 mg/dL (0.2-1.0); Calcium 8.7 mg/dL (8.5-10.1); Carbon Dioxide 29.8 mmol/L (21.0-32.0); Chloride 103 mmol/L (98-107); Estimated GFR (African America >60 (>=60 mL/min/1.73m^2); Estimated GFR (Non-African Ame >60 (>=60 mL/min/1.73m^2); Globulin 4.1 g/dL; Glucose 88 mg/dL (74-106); Potassium 4.3 mmol/L (3.5-5.1); Sodium 140 mmol/L (136-145); Total Protein 7.2 g/dL (6.4-8.2)
[2024-06-16 20:22] LABS: INR 1.02; Prothrombin Time 10.8 sec (9.0-11.6)
--- NOTE | 2024-06-16 21:33 | PC.NURSE ---
Wound gently cleansed with sterile saline solution. Adaptic applied to wound bed with ABD over the top, then kerlix, then VINAY wrap to secure all. This was well tolerated by the pt.
[2024-06-16 21:36] VITALS: BP 154/68; TEMP 37.1; O2SAT 95
== END 2024-06-16 21:38 | disposition home or self-care (01) ==
PROVIDERS: Emergency Medicine; Emergency Provider Emergency Medicine; PCP Family Medicine
DX: T81.30XA Disruption of wound, unspecified, initial encounter (principal); Z98.84 Bariatric surgery status; Z90.49 Acquired absence of other specified parts of digestive tract; Z87.891 Personal history of nicotine dependence; R60.0 Localized edema
CPT/HCPCS: 36415; 80053; 85025; 85610; 96374; 99284; J2270

== ENCOUNTER 2024-06-17 12:00 | Outpatient (OUT) | payer MEDICARE, MEDICAID, SELFPAY | END 2024-06-17 12:01 | disposition home or self-care (01) | LOC: WC 12:00 | PROVIDERS: PCP Family Medicine; Visit Provider Physician Assistant | DX: E11.621 Type 2 diabetes mellitus with foot ulcer (principal); L97.412 Non-pressure chronic ulcer of right heel and midfoot with fat layer exposed; L97.521 Non-pressure chronic ulcer of other part of left foot limited to breakdown of skin | CPT/HCPCS: 29581 ==

== ENCOUNTER 2024-06-21 15:43 | Outpatient (OUT) | payer MEDICARE, MEDICAID, SELFPAY | END 2024-06-21 15:44 | disposition home or self-care (01) | LOC: WC 15:43 | PROVIDERS: PCP Family Medicine; Visit Provider Physician Assistant | DX: E11.621 Type 2 diabetes mellitus with foot ulcer (principal); L97.412 Non-pressure chronic ulcer of right heel and midfoot with fat layer exposed | CPT/HCPCS: 29445 ==

== ENCOUNTER 2024-06-24 11:24 | Outpatient (OUT) | payer MEDICARE, MEDICAID, SELFPAY | END 2024-06-24 11:25 | disposition home or self-care (01) | LOC: WC 11:24 | PROVIDERS: PCP Family Medicine; Visit Provider Podiatrist Foot & Ankle Surgery | DX: E11.621 Type 2 diabetes mellitus with foot ulcer (principal); L97.412 Non-pressure chronic ulcer of right heel and midfoot with fat layer exposed | CPT/HCPCS: 29445 ==

== ENCOUNTER 2024-07-01 10:57 | Outpatient (OUT) | payer MEDICARE, MEDICAID, SELFPAY ==
--- NOTE | 2024-07-01 | XR_ITS ---
The [address] [address] Patient Name: AMTT [place] MRN: [id number] date: 1960 Sex: M Assigned Patient Location: Current Patient Location: Accession/Order Number: [id number] Exam Date: 07/01/2024 13:46 Report Date: 07/01/2024 13:48 At the request of: MIRIAN BRYAN Procedure: XR foot RT min 3V XR foot RT min 3V 07/01/2024 11:19 AM SIGNS AND SYMPTOMS: ^RIGHT FOOT PAIN, wound on right foot PROTOCOL: Frontal, lateral, and oblique radiographs of the right foot COMPARISON: 06/01/2024 FINDINGS: There has been amputation of the first through fifth digits with the base of the metatarsals remaining. There is soft tissue swelling along the stump with ulceration. The ulceration is slightly greater right compared to the prior exam. Osteopenia along the remnants of the base of the metatarsals is worse when compared to the prior exam. There is plantar and Achilles surface calcaneal spurring. Degenerative changes are noted at the talonavicular joint. 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 There is soft tissue swelling along the stump with ulceration. The ulceration is slightly greater right compared to the prior exam. Osteopenia along the remnants of the base of the metatarsals is worse when compared to the prior exam. This is consistent with interval development of osteomyelitis. Impression dictated by: Andrei Kaplan M.D.07/01/2024 1:48 PM Dictation Location: [place] [address] Electronically authenticated by: [id number] Y Date: 07/01/2024 13:48
== END 2024-07-01 10:58 | disposition home or self-care (01) ==
LOC: WC 10:57
PROVIDERS: PCP Family Medicine; Visit Provider Physician Assistant
DX: E11.621 Type 2 diabetes mellitus with foot ulcer (principal); L97.412 Non-pressure chronic ulcer of right heel and midfoot with fat layer exposed
CPT/HCPCS: 29445; 73630

== ENCOUNTER 2024-07-05 14:17 | Outpatient (OUT) | payer MEDICARE, MEDICAID, SELFPAY | END 2024-07-05 14:18 | disposition home or self-care (01) | LOC: WC 14:17 | PROVIDERS: PCP Family Medicine; Visit Provider Physician Assistant | DX: E11.621 Type 2 diabetes mellitus with foot ulcer (principal); L97.412 Non-pressure chronic ulcer of right heel and midfoot with fat layer exposed | CPT/HCPCS: 29445 ==

== ENCOUNTER 2024-07-08 10:47 | Outpatient (OUT) | payer MEDICARE, MEDICAID, SELFPAY | END 2024-07-08 10:48 | disposition home or self-care (01) | LOC: WC 10:47 | PROVIDERS: PCP Family Medicine; Visit Provider Podiatrist Foot & Ankle Surgery | DX: E11.621 Type 2 diabetes mellitus with foot ulcer (principal); L97.412 Non-pressure chronic ulcer of right heel and midfoot with fat layer exposed | CPT/HCPCS: 29445; 97597 ==

== ENCOUNTER 2024-07-12 15:40 | Outpatient (OUT) | payer MEDICARE, MEDICAID, SELFPAY | END 2024-07-12 15:41 | disposition home or self-care (01) | LOC: WC 15:40 | PROVIDERS: PCP Family Medicine; Visit Provider Physician Assistant | DX: E11.621 Type 2 diabetes mellitus with foot ulcer (principal); L97.412 Non-pressure chronic ulcer of right heel and midfoot with fat layer exposed | CPT/HCPCS: G0463 ==

== ENCOUNTER 2024-07-20 15:04 | Outpatient (OUT) | payer MEDICARE, MEDICAID, SELFPAY | END 2024-07-20 15:05 | disposition home or self-care (01) | LOC: WC 15:04 | PROVIDERS: PCP Family Medicine; Visit Provider Physician Assistant | DX: E11.621 Type 2 diabetes mellitus with foot ulcer (principal); L97.412 Non-pressure chronic ulcer of right heel and midfoot with fat layer exposed | CPT/HCPCS: 11043 ==

== ENCOUNTER 2024-07-22 23:08 | Emergency (ER) | payer MEDICARE, MEDICAID, SELFPAY ==
[2024-07-22 23:12] VITALS: BP 216/97; PULSE 89; TEMP 36.6; BMI 40.9
--- NOTE | 2024-07-22 23:18 | ECG_ITS ---
The [facility] Test Date: 2024-07-22 Pat Name: MATT [place] Department: Room: - Gender: Male Construction Inspector: : 1960 Requested By: Order Number: [id number] Reading MD: RAJEEV BRISENO M.D. Measurements Intervals [place] Rate: 83 P: 23 CO: 208 QRS: 10 QRSD: 90 T: 35 QT: 380 QTc: 420 Interpretive Statements 1100 Sinus rhythm 8102 Low QRS voltage in chest leads 9120 Abnormal ECG Compared to ECG 11/10/2023 16:43:59 First degree AV block no longer present Electronically Signed On 07-23-2024 8:41:46 EDT by RAJEEV BRISENO M.D.
--- NOTE | 2024-07-22 23:18 | ED.GENADUL1 ---
HPI HPI - General Adult General Chief complaint: Shortness of Breath/Dyspnea Stated complaint: sob Time Seen by Provider: 07/22/24 23:10 Source: patient Mode of arrival: walk-in Limitations: no limitations History of Present Illness HPI narrative: 63-year-old male presents for shortness of breath. He believes he is in heart failure. He states he has been putting on weight and has now put on 12 pounds. His employee relations manager told him to go to [facility] and he came here. No fever or complaints of chest pain. Related Data Home Medications ?Medication ?Instructions ?Recorded ?Confirmed apixaban 5 mg tablet (Eliquis) 5 mg PO BID 11/10/23 07/22/24 aspirin 81 mg tablet,delayed 81 mg PO .QD 11/10/23 07/22/24 release atorvastatin 80 mg tablet 80 mg PO .QHS 11/10/23 07/22/24 bumetanide 1 mg tablet 3 mg PO Q12H 11/10/23 07/22/24 carvedilol 6.25 mg tablet (Coreg) 6.25 mg PO BID 11/10/23 07/22/24 diclofenac sodium 1 % topical gel 2 g topical Q4H PRN to each 11/10/23 07/22/24 affected area gabapentin 800 mg tablet 800 mg PO Q8H 11/10/23 07/22/24 isosorbide mononitrate 30 mg 90 mg PO .QD 11/10/23 07/22/24 tablet,extended release 24 hr metformin 500 mg tablet 500 mg PO BID 11/10/23 07/22/24 moxifloxacin 0.5 % eye drops 1 drp ophthalmic (eye) QID 11/10/23 07/22/24 nitroglycerin 0.4 mg sublingual 0.4 mg sublingual Q5M PRN chest 11/10/23 07/22/24 tablet pain oxycodone 5 mg tablet 5 mg PO Q8H PRN pain 11/10/23 07/22/24 oxycodone myristate 18 mg capsule 18 mg PO Q12H 11/10/23 07/22/24 sprinkle extended release 12hr(DON'T CRUSH) (Xtampza ER) pen needle, diabetic 32 gauge x 11/10/23 06/01/24/32 (Unifine Pentips) prednisolone acetate 1 % eye 1 drp ophthalmic (eye) Q12H 11/10/23 07/22/24 drops,suspension sacubitril 24 mg-valsartan 26 mg 1 tab PO BID 11/10/23 07/22/24 tablet (Entresto) spironolactone 50 mg tablet 50 mg PO .QD 11/10/23 07/22/24 cholecalciferol (vitamin D3) 25 1,000 unit PO DAILY 05/24/24 07/22/24 mcg (1,000 unit) capsule dapagliflozin propanediol 10 mg 10 mg PO DAILY 05/24/24 07/22/24 tablet (Farxiga) daridorexant 50 mg tablet (Quviviq) 50 mg PO DAILY 05/24/24 07/22/24 divalproex 125 mg tablet,delayed 125 mg PO Q12H 05/24/24 07/22/24 release divalproex 500 mg tablet,delayed 500 mg PO Q12H 05/24/24 07/22/24 release ergocalciferol (vitamin D2) 1,250 1,250 mcg PO QWEEK 05/24/24 07/22/24 mcg (50,000 unit) capsule ferrous sulfate 325 mg (65 mg 325 mg PO DAILY 05/24/24 07/22/24 iron) tablet finasteride 5 mg tablet 5 mg PO DAILY 05/24/24 07/22/24 fluticasone propionate 50 1 spray intranasal DAILY 05/24/24 07/22/24 mcg/actuation nasal spray,suspension (24 Hour Allergy Relief) folic acid 1 mg tablet 1 mg PO DAILY 05/24/24 07/22/24 methotrexate sodium 2.5 mg tablet 17.5 mg PO QWEEK 05/24/24 07/22/24 metolazone 2.5 mg tablet 2.5 mg PO DAILY PRN edema 05/24/24 07/22/24 potassium chloride 20 mEq/15 mL 20 meq PO DAILY 05/24/24 07/22/24 oral liquid semaglutide 1 mg/dose (4 mg/3 mL) 1 mg subcut QWEEK 05/24/24 07/22/24 subcutaneous pen injector (Ozempic) sertraline 25 mg tablet 25 mg PO DAILY 05/24/24 07/22/24 tiotropium bromide 18 mcg capsule 1 cap inhalation DAILY 05/24/24 07/22/24 with inhalation device (Spiriva with HandiHaler) valacyclovir 1 gram tablet 1,000 mg PO Q12H 05/24/24 07/22/24 clonazepam 1 mg tablet 1 mg PO .HS 07/22/24 07/22/24 daridorexant 25 mg tablet (Quviviq) 25 mg PO .HS 07/22/24 07/22/24 erythromycin 5 mg/gram (0.5 %) eye 0.5 inch ophthalmic (eye) DAILY 07/22/24 07/22/24 ointment metoprolol succinate 25 mg 25 mg PO DAILY 07/22/24 07/22/24 tablet,extended release 24 hr naloxone 4 mg/actuation nasal 4 mg intranasal Q2M PRN opioid 07/22/24 07/22/24 spray (Narcan) overdose ondansetron 4 mg disintegrating 4 mg PO Q6H PRN nausea and vomiting 07/22/24 07/22/24 tablet Allergies Allergy/AdvReac Type Severity Reaction Status Date / Time metoclopramide (From Reglan) AdvReac Intermediate Rash Verified 07/22/24 23:18 polyethylene glycol (From AdvReac Intermediate Rash Verified 07/22/24 23:18 Golytely) polyethylene glycol 3350 AdvReac Intermediate Rash Verified 06/01/24 11:49 (From Golytely) promethazine (From Phenergan) AdvReac Intermediate rash Verified 07/22/24 23:18 sodium (From Golytely) AdvReac Intermediate Rash Verified 06/01/24 11:49 sodium bicarbonate (From AdvReac Intermediate Rash Verified 06/01/24 11:49 Golytely) sodium chloride (From AdvReac Intermediate Rash Verified 06/01/24 11:49 Golytely) sodium sulfate (From AdvReac Intermediate Rash Verified 06/01/24 11:49 Golytely) Sulfa (Sulfonamide AdvReac Intermediate Rash Verified 07/22/24 23:18 Antibiotics) Opioid HPI Opioid Management Most Recent Opioid Data: Last Pain Scale 8 07/23/24 00:59 07/23/24 Last MAR Pain Assessment 07/23/24 00:59 Last ORT Total Score 0 06/01/24 14:43 06/01/24 Last ORT Risk Category Low Risk 06/01/24 14:43 06/01/24 Review of Systems ROS Narrative A ten point review of systems is negative except as noted above. 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) Dehiscence of operative wound ?T81.31XA - Disruption of external operation (surgical) wound, not elsewhere classified, initial encounter (ICD-10) HLD (hyperlipidemia) ?E78.5 - Hyperlipidemia, unspecified (ICD-10) HFrEF (heart failure with reduced ejection fraction) ?I50.20 - Unspecified systolic (congestive) heart failure (ICD-10) [place] filter in place ?Z95.828 - Presence of other vascular implants and grafts (ICD-10) History of blood transfusion ?Z92.89 - Personal history of other medical treatment (ICD-10) Anticoagulated ?Z79.01 - residential (current) use of anticoagulants (ICD-10) Anemia ?D64.9 - Anemia, unspecified (ICD-10) Emphysema lung ?J43.9 - Emphysema, unspecified (ICD-10) Seizures ?R56.9 - Unspecified convulsions (ICD-10) Chronic kidney disease ?N18.9 - Chronic kidney disease, unspecified (ICD-10) Ulcer of right heel and midfoot with fat layer exposed ?L97.412 - Non-pressure chronic ulcer of right heel and midfoot with fat layer exposed (ICD-10) Gastroparesis ?K31.84 - Gastroparesis (ICD-10) Ankylosing spondylitis ?M45.9 - Ankylosing spondylitis of unspecified sites in spine (ICD-10) Rheumatoid arthritis ?M06.9 - Rheumatoid arthritis, unspecified (ICD-10) Sleep apnea ?G47.30 - Sleep apnea, unspecified (ICD-10) Coronary atherosclerosis ?I25.10 - Atherosclerotic heart disease of [place] coronary artery without angina pectoris (ICD-10) Inguinal hernia ?K40.90 - Unilateral inguinal hernia, without obstruction or gangrene, not specified as recurrent (ICD-10) Pulmonary embolism ?I26.99 - Other pulmonary embolism without acute cor pulmonale (ICD-10) Myocardial infarction ?I21.9 - Acute myocardial infarction, unspecified (ICD-10) Glaucoma ?H40.9 - Unspecified glaucoma (ICD-10) Diabetes ?E11.9 - Type 2 diabetes mellitus without complications (ICD-10) DVT (deep venous thrombosis) ?I82.409 - Acute embolism and thrombosis of unspecified deep veins of unspecified lower extremity (ICD-10) Heart failure ?I50.9 - Heart failure, unspecified (ICD-10) Dyspnea on exertion ?R06.09 - Other forms of dyspnea (ICD-10) Conjunctival ulcer ?H10.89 - Other conjunctivitis (ICD-10) Autoimmune disease ?M35.9 - Systemic involvement of connective tissue, unspecified (ICD-10) Tremor ?R25.1 - Tremor, unspecified (ICD-10) Chest pain ?R07.9 - Chest pain, unspecified (ICD-10) Lower extremity edema ?R60.0 - Localized edema (ICD-10) Pre-operative cardiovascular examination ?Z01.810 - Encounter for preprocedural cardiovascular examination (ICD-10) Diabetic ulcer of toe ?E11.621 - Type 2 diabetes mellitus with foot ulcer (ICD-10) ?L97.509 - Non-pressure chronic ulcer of other part of unspecified foot with unspecified severity (ICD-10) Cardiomegaly ?I51.7 - Cardiomegaly (ICD-10) DM neuropathy, type II diabetes mellitus ?E11.40 - Type 2 diabetes mellitus with diabetic neuropathy, unspecified (ICD-10) DM2 (diabetes mellitus, type 2) ?E11.9 - Type 2 diabetes mellitus without complications (ICD-10) A-fib ?I48.91 - Unspecified atrial fibrillation (ICD-10) CHF (congestive heart failure) ?I50.9 - Heart failure, unspecified (ICD-10) COPD (chronic obstructive pulmonary disease) ?J44.9 - Chronic obstructive pulmonary disease, unspecified (ICD-10) CAD (coronary artery disease) ?I25.10 - Atherosclerotic heart disease of [place] coronary artery without angina pectoris (ICD-10) Surgical History (Updated 05/27/24 @ 07:48 by Carolina Hernandez) History of foot surgery ?Z98.890 - Other specified postprocedural states (ICD-10) H/O colonoscopy ?Z98.890 - Other specified postprocedural states (ICD-10) H/O gastric bypass ?Z98.84 - Bariatric surgery status (ICD-10) H/O skin graft ?Z94.5 - Skin transplant status (ICD-10) Amputated toe (11/11/23) ?S98.139A - Complete traumatic amputation of one unspecified lesser toe, initial encounter (ICD-10) History of appendectomy ?Z90.49 - Acquired absence of other specified parts of digestive tract (ICD-10) Gastric bypass status for obesity ?Z98.84 - Bariatric surgery status (ICD-10) Family History Mother Family history of CHF (congestive heart failure) Family history of COPD (chronic obstructive pulmonary disease) Family history of cancer Family history of hypertension Family history of myocardial infarction Father Family history of CHF (congestive heart failure) Family history of COPD (chronic obstructive pulmonary disease) Family history of cancer Family history of hypertension Family history of myocardial infarction Family history of stroke Brother Family history of CHF (congestive heart failure) Family history of diabetes mellitus Family history of hypertension Family history of myocardial infarction Family history of stroke Sister Family history of diabetes mellitus Family history of hypertension Family history of myocardial infarction Social History Within the past year, how often did you have a drink containing alcohol: never Score interpretation: A score less than 4 is consistent with normal alcohol consumption. Smoking status: Former smoker Non-prescribed substance use: denies use Previous occupational history: disabled Highest level of school completed/degree received: Bachelor's degree Are you now , , , , never or living with a partner: Little interest or pleasure in doing things: not at all Feeling down, depressed, or hopeless: not at all Feel stressed/tense/nervous/anxious/difficulty sleeping: not at all Exam Narrative Exam Narrative: Nurses note and vital signs reviewed and patient is not hypoxic. General: The patient appears in no apparent distress. Skin: Warm, dry, no pallor noted. There is no rash noted. Head: Normocephalic, atraumatic Eye: Normal conjunctiva, no drainage Ears, Nose, Mouth, and Throat: oral mucosa is moist. Nares patent. Cardiovascular: Regular Rate and Rhythm Respiratory: Breath sounds are diminished bilateral Back: non-tender GI: Obese and nontender Musculoskeletal: The patient has no evidence of calf tenderness Neurological: A&O, normal speech Psychiatric: Cooperative Constitutional Vital Signs, click to edit/add: Last Vital Signs Temp 97.8 F 07/22/24 23:12 Pulse 89 07/22/24 23:12 Resp 20 07/22/24 23:12 BP 216/97 H 07/22/24 23:12 Course Vital Signs Vital signs: Vital Signs Temperature 97.8 F 07/22/24 23:12 Pulse Rate 89 07/22/24 23:12 Respiratory Rate 20 07/22/24 23:12 Blood Pressure 216/97 H 07/22/24 23:12 Temperature 97.8 F 07/22/24 23:12 Pulse Rate 89 07/22/24 23:12 Respiratory Rate 07/22/24 23:12 Blood Pressure 216/97 H 07/22/24 23:12 Medical Decision Making MDM Narrative Medical decision making narrative: The patient presented with what he reports is 12 pounds of weight gain and the concern of congestive heart failure. His chest x-ray does not show failure and his BNP is normal. The rest of his workup as well as negative including the COVID and influenza swabs as well as his troponin. He will be discharged home and will follow-up promptly with his employee relations manager. There is no indication for admission to the hospital and I have no clinical suspicion of pulmonary embolism. Treatment diagnosis and follow-up were discussed with the patient. Differential Diagnosis Differential Diagnosis: Weight gain, heart failure, pneumonia, COVID, influenza Lab Data Lab results reviewed: Yes I reviewed the patient's lab results Labs: Lab Results 07/23/24 07/23/24 Range/Units 00:20 00:45 WBC 5.9 (4.0-11.0) 10^3/uL RBC 3.39 L (4.70-6.10) 10^6/uL Hgb 9.2 L (14.0-18.0) g/dL Hct 30.5 L (42.0-54.0) % MCV 90.0 (80.0-94.0) fL MCH 27.1 (25.9-34.0) pg MCHC 30.2 (29.9-35.2) g/dL RDW 16.5 H (11.0-15.0) % Plt Count 284 (150-450) 10^3/uL MPV 10.7 (9.5-13.5) fL Neut % (Auto) 64.7 (43.0-75.0) % Lymph % (Auto) 27.2 (20.5-60.0) % [place] % (Auto) 5.1 (1.7-12.0) % Eos % (Auto) 1.9 (0.9-7.0) % Baso % (Auto) 0.8 (0.2-2.0) % Neut # (Auto) 3.8 (1.4-6.5) 10^3/uL Lymph # (Auto) 1.6 (1.2-3.8) 10^3/uL [place] # (Auto) 0.3 (0.3-0.8) 10^3/uL Eos # (Auto) 0.1 (0.0-0.7) 10^3/uL Baso # (Auto) 0.1 (0.0-0.1) 10^3/uL Abs Immat Gran (auto) 0.02 (0.00-0.03) 10^3/uL Imm/Tot Granulo (auto) 0.3 (0.0-0.5) % Sodium 140 (136-145) mmol/L Potassium 3.9 (3.5-5.1) mmol/L Chloride 105 (98-107) mmol/L Carbon Dioxide 24.7 (21.0-32.0) mmol/L Anion Gap 14.2 BUN 20.0 H (7.0-18.0) mg/dL Creatinine 0.87 (0.70-1.30) mg/dL Est GFR ( Amer) >60 (>=60 mL/min/1.73m^2) Est GFR (Non-Af Amer) >60 (>=60 mL/min/1.73m^2) BUN/Creatinine Ratio 23.0 Glucose 198 H (74-106) mg/dL Calcium 8.4 L (8.5-10.1) mg/dL Troponin I High Sens 10.5 (4.0-76.1) pg/mL NT-Pro-B Natriuret Pep 232.0 (<=900.0) pg/mL Influenza Type A Ag Negative Influenza Type B Ag Negative SARS-CoV-2 Ag (CV2AG) Negative (NEGATIVE) Imaging Data Chest x-ray: Radiologist's impression: No acute process seen in the chest, no lobar consolidation or edema, no pleural effusion or pneumothorax ECG Data Attestation: I personally reviewed and interpreted this ECG as follows: (EKG on my interpretation shows sinus rhythm with a rate of 83 and no acute change) Discharge Plan Discharge Chief Complaint: Shortness of Breath/Dyspnea Clinical Impression: Dyspnea, Weight gain Patient Disposition: Home, Self-Care Time of Disposition Decision: :21 Condition: Good Mode of Transportation: Private Vehicle Prescriptions / Home Meds: No Action atorvastatin 80 mg tablet 80 mg PO .QHS aspirin 81 mg tablet,delayed release (DR/EC) 81 mg PO .QD bumetanide 1 mg tablet 3 mg PO Q12H Eliquis 5 mg tablet 5 mg PO BID metformin 500 mg tablet 500 mg PO BID isosorbide mononitrate 30 mg tablet extended release 24 hr 90 mg PO .QD gabapentin 800 mg tablet 800 mg PO Q8H nitroglycerin 0.4 mg tablet, sublingual 0.4 mg sublingual Q5M PRN (Reason: chest pain) oxycodone 5 mg tablet 5 mg PO Q8H PRN (Reason: pain) moxifloxacin 0.5 % drops 1 drp ophthalmic (eye) QID Xtampza ER 18 mg cap,sprinkl,ER12hr(DONT CRUSH) 18 mg PO Q12H prednisolone acetate 1 % drops,suspension 1 drp ophthalmic (eye) Q12H Patient Comments: BOTH EYES spironolactone 50 mg tablet 50 mg PO .QD (DME) pen needle, diabetic [Unifine Pentips] 32 gauge x 5/32 needle MISCELLANEOUS Entresto 24-26 mg tablet 1 tab PO BID carvedilol [Coreg] 6.25 mg tablet 6.25 mg PO BID Rx Instructions: must administer with a meal/food diclofenac sodium 1 % gel 2 g TOPICAL Q4H PRN (Reason: to each affected area) Patient Comments: APPLY 2-4 GRAMS TOPICALLY TO EACH EFFECTED AREA EVERY 4-6 HOURS. MAX OF 32 GRAMS DAILY potassium chloride 20 mEq/15 mL liquid 20 meq PO DAILY metolazone 2.5 mg tablet 2.5 mg PO DAILY PRN (Reason: edema) sertraline 25 mg tablet 25 mg PO DAILY methotrexate sodium 2.5 mg tablet 17.5 mg PO QWEEK folic acid 1 mg tablet 1 mg PO DAILY cholecalciferol (vitamin D3) 25 mcg (1,000 unit) capsule 1,000 unit PO DAILY dapagliflozin propanediol [Farxiga] 10 mg tablet 10 mg PO DAILY valacyclovir 1 gram tablet 1,000 mg PO Q12H Ozempic 1 mg/dose (4 mg/3 mL) pen injector 1 mg subcut QWEEK divalproex 125 mg tablet,delayed release (DR/EC) 125 mg PO Q12H Quviviq 50 mg tablet 50 mg PO DAILY ferrous sulfate 325 mg (65 mg iron) tablet 325 mg PO DAILY ergocalciferol (vitamin D2) 1,250 mcg (50,000 unit) capsule 1,250 mcg PO QWEEK fluticasone propionate [24 Hour Allergy Relief] 50 mcg/actuation spray,suspension 1 spray intranasal DAILY Rx Instructions: administer into each nostril divalproex 500 mg tablet,delayed release (DR/EC) 500 mg PO Q12H finasteride 5 mg tablet 5 mg PO DAILY tiotropium bromide [Spiriva with HandiHaler] 18 mcg capsule, w/inhalation device 1 cap inhalation DAILY Rx Instructions: puncture 1 cap using device; one dose = 2 inhalations clonazepam 1 mg tablet 1 mg PO .HS Quviviq 25 mg tablet 25 mg PO .HS erythromycin 5 mg/gram (0.5 %) ointment 0.5 inch OPHTHALMIC (EYE) DAILY Rx Instructions: right eye metoprolol succinate 25 mg tablet extended release 24 hr 25 mg PO DAILY ondansetron 4 mg tablet,disintegrating 4 mg PO Q6H PRN (Reason: nausea and vomiting) naloxone [Narcan] 4 mg/actuation spray,non-aerosol 4 mg INTRANASAL Q2M PRN (Reason: opioid overdose) Print Language: Greenlandic Instructions: Dyspnea (ED) Additional Instructions: Call your employee relations manager on Thursday Referrals: Elin Liz MD [Primary Care Provider] - 1 week
--- OUTSIDE RECORDS SUMMARY | 2024-07-22 23:22 | XMS_ITS | CCD ---
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 Name Role Phone SURAJ LLANOS Primary Care Physician Liz Resendiz Unavailable Unavailable Debora, Kwabena Unavailable Jeb Hernandez Unavailable [phone] SURAJ LLANOS Primary Care Unavailable SURAJ LLANOS Referring Unavailable DELMA EDDY Attending Unavailable DELMA EDDY Admitting Unavailable ROSEMARY BARRON Attending Unavailable SURAJ LLANOS Primary Care Unavailable EL-ZAWAYBRIANMED Referring Unavailable EL-ZAWAHRY AHMED Admitting Unavailable LARRY, YANICK Admitting Unavailable LARRY YANICK Attending Unavailable JANET GOMEZ Referring Unavailable SURAJ LLANOS Primary Care Unavailable MD Suraj Llanos Primary Care Provider [phone] Janet Gomez Attending Provider DR SURAJ LLANOS Primary Care Unavailable ELTAHAWY, DR JASON Attending Unavailable ELTAHAWY, DR JASON Admitting Unavailable ELTAHAWY, DR JASON Consulting Unavailable DR SURAJ LLANOS Primary Care Unavailable ELTAHAWY, DR JASON Attending Unavailable ELTAHAWY, DR JASON Admitting Unavailable ELTAHAWY, DR JASON Consulting Unavailable DR SURAJ LLANOS Primary Care Unavailable ELTAHAWY, DR JASON Attending Unavailable ELTAHAWY, DR JASON Admitting Unavailable ZARINA CHOWDHURY Consulting Unavailable REQUEST, DR HAMPTON LISTED Primary Care Unavaila ble ELTAHAWMonika, DR JASON Attending Unavailable ELTAHAWY, DR JASON Admitting Unavailable MISC, DR CAROLINA Attending Unavailable MISC, DR CAROLINA Admitting Unavailable LLANOS, DR SURAJ Crowley Primary Care Unavailable HIGHLANDER, KOLE Silva Attending Unavailable HIGHLANDER, PETER D Admitting Unavailable DANDY, NATHAN Consulting Unavailable LLANOS, [...] Unavailable HIGHLANDER, KOLE Silva Attending Unavailable HIGHLANDER, KOLE Silva Admitting Unavailable ELTAHAWY, DR JASON Consulting Unavailable REQUEST, DR HAMPTON LISTED Primary Care Unavaila ble ELTAHAWY, DR JASON Attending Unavailable [facility] DR JASON Admitting Unavailable Samuel, Patti J Unavailable Unavailable MD Suraj Llanos Primary Care Provider MD Suraj Llanos Attending Provider Dolce, DPM Ramiro Silva Attending Provider Dolce, DPM Santos R Attending Provider [phone] MD Suraj Llanos Primary Care Provider Suraj Llanos Unavailable MD Ronaldo Arcos Attending Provider Ronaldo Arcos Unavailable MD Suraj Llanos Primary Care Provider Dolce, DPM Ramiro Silva Attending Provider Dolce, DPM Santos R Attending Provider MD Ronaldo Arcos Attending Provider NON STAFF Primary Care Provider UnavailMD Suraj Davis Attending Provider MD Suraj Llanos Primary Care Provider Janet Gomez Attending Provider Dolce, Santos R Attending Unavailable Dolce, Santos R Attending Unavailable Dolce, Santos R Attending Unavailable Dolce, Santos R Consulting Unavailable Moussawi, Ahmad Admitting Unavailable Kennedy HARRIS Attending Unavailable Dolce, [...] Consulting Unavailable Blank, Ronaldo S Consulting Unavailable Birgit Cordova Consulting Unavailable Birgit Cordova Consulting Unavailable Reginaldo Cordovaamed F. Consulting Unavailable Javon Edwards Attending Unavailable Octavio Walter Admitting Unavailable Dolce, Ramiro Silva Consulting Unavailable Dolce, [...] Unavailable Blank, Ronaldo S Consulting Unavailable Blank, Ronlado S Consulting Unavailable Blank, Ronaldo S Consulting Unavailable Blank, Ronaldo S Consulting Unavailable Blank, Ronaldo S Consulting Unavailable Blank, Ronaldo S Consulting Unavailable Blank, Ronaldo S Consulting Unavailable Blank, Ronaldo S Consulting Unavailable Blank, Ronaldo S Consulting Unavailable Noni [facility] Admitting Unavailable Hospitalist Post Disch, Results Reviewer [...] S Consulting Unavailable Javon Edwards Attending Unavailable VAMSI, Mimi Admitting Unavailable Blank, Ronaldo S Consulting Unavailable [...] Attending Unavailable Dolce, Santos R Attending Unavailable DolceRamiro Referring Unavailable Dolce, Ramiro Silva Attending Unavailable Teddy HDZ Attending Unavailable Dolce, Santos R Attending Unavailable Dolce, Santos R Attending Unavailable Dolce, Santos R Attending Unavailable SURAJ LLANOS Attending Unavailable SURAJ LLANOS Admitting Unavailable Dolce, Santos R Admitting Unavailable Dolce, Santos R Attending Unavailable Dolce, Santos R Attending Unavailable Dolce, Santos R Attending Unavailable Dolce, Santos R Attending Unavailable Dolce, Santos R Attending Unavailable Dolce, Santos R Attending Unavailable Mark Vela Attending Unavailable Mark Vela Attending Unavailable Derrick Benson Attending Unavailable Mark Zepeda Attending Unavailable Mark Zepeda Attending Unavailable Santos Epperson Attending Unavailable Santos Epperson Attending Unavailable MD Suraj Llanos Primary Care Provider Eltahawy, Ehab A Attending Provider [phone] MD Suraj Llanos Primary Care Provider HAMZAH Diaz Attending Provider MD Rudy Harvey Attending Provider [phone] MD Suraj Llanos Primary Care Provider Clarissa GILBERT, Laz Hooks Primary Care Provider Suraj Llanos MD Primary Care Provider HOMAR GOODRICH Attending Unavailable KOLE DIAZ Referring Unavailable HOMAR GOODRICH Attending Unavailable HOMAR GOODRICH Attending Unavailable Suraj Llanos MD Primary Care Provider Suraj Llanos MD Primary Care Provider Rudy Harvey MD Attending Provider [phone] Kole Diaz DPM Attending Provider Abugharbyeh, Aya Admitting Unavailable Abugharbyeh, Aya Attending Unavailable Suraj Llanos Primary Care Unavailable Abugharbyeh, Aya Attending Unavailable Suraj Llanos Primary Care Unavailable Abugharbyeh, Aya Admitting Unavailable Suraj Llanos Primary Care Unavailable Eltahawy, Ehab A Admitting Unavailable [place]y, Ehab A Attending Unavailable Suraj Llanos Primary Care Unavailable Kole Diaz Admitting Unavailable Kole Diaz Attending Unavailable Suraj Llanos Primary Care Unavailable Kole Diaz Admitting Unavailable Kole Diaz Attending Unavailable Suraj Llanos MD Primary Care Provider ELTAHAWY, EHAB Referring Unavailable MIRELA PAIGE Admitting Unavailable MALATHI DEVINE Attending Unavailable ELTAHAWY, EHAB Referring Unavailable BRAULIO CALABRESE Attending Unavailab le PARTH, SARMED Admitting Unavailable ELTAHAWY, EHAB Attending Unavailable ELTAHAWY, EHAB Attending Unavailable ELTAHAWY, EHAB Attending Unavailable ABUGHARBYEH, AYA Referring Unavailable ABUGHARBYEH, AYA Referring Unavailable PERNE, LYNETTE Referring Unavailable PERNE, LYNETTE Attending Unavailable ABUGHARBYEH, AYA Attending Unavailable ABUGHARBYEH, AYA Attending Unavailable ESTELLA CHU Attending Unavailab le ABUGHARBYEH, AYA Referring Unavailable ELTAHAWY, EHAB Attending Unavailable ELTAHAWY, EHAB Attending Unavailable PERNE, LYNETTE Referring Unavailable PERNE, LYNETTE Attending Unavailable HORANI, TIA Referring Unavailable HORANI, TIA Referring Unavailable HORANI, TIA Referring Unavailable ABUGHARBYEH, AYA Attending Unavailable PARTH, SARMED Referring Unavailable PERNE, LYNETTE Referring Unavailable PARTH, SARMED Referring Unavailable ELTAHAWY, EHAB Attending Unavailable ELTAHAWY, EHAB Attending Unavailable ELTAHAWY, EHAB Attending Unavailable KASER, MARGARITA Attending Unavailable PARTH, SARMED Referring Unavailable PARTH, SARMED Referring Unavailable GARCIA, FRANCISCOLILYN Referring Unavailable ELTAHAWY, EHAB Attending Unavailable JOSESITO KATZ Referring Unavailable Suraj Llanos MD Primary Care Provider [facility] Kole GOODSON Attending Provider Unavailable Unavailable Unavailable Allergies Allergy Classification Reported Allergen(s) Allergy Type Date of Onset Reaction(s) Facility (20 sources) Metoclopramide; Translations: [Metoclopramide] Drug Allergy 09-16-19 17 Spasmodic movement (finding), Other, Rash, Unknown [facility] (20 sources) Polyethylene Glycols; Translations: [polyethylene glycol] Drug Allergy 06-22-19 20 [facility] (20 sources) Polyethylene Glycols; Translations: [polyethylene glycol 3350] Drug Allergy 06-22-19 [facility] (20 sources) Potassium Chloride; Translations: [potassium chloride] Drug Allergy 06-22-19 20 [facility] (20 sources) Promethazine; Translations: [Promethazine] Drug Allergy 05-10-20 13 Other, Rash, Unknown, [facility] (20 sources) Sodium Bicarbonate; Translations: [sodium bicarbonate] Drug Allergy 06-22-19 [facility] (20 sources) Sodium Chloride; Translations: [sodium chloride] Drug Allergy 06-22-19 [facility] (20 sources) sodium sulfate; Translations: [sodium sulfate] Drug Allergy 06-22-19 [facility] (20 sources) Sulfonamides (Antibiotic); Translations: [Sulfa (Sulfonamide Antibiotics)] Allergy to substance 08-08-19 12 Wheezing [facility] (20 sources) sodium; Translations: [sodium] Allergy to substance 06-22-19 [facility] (20 sources) POLYETHYLENE GLYCOL 3350 / Potassium Chloride / Sodium Bicarbonate / Sodium Chloride; Translations: [polyethylene glycol electrolyte solution] Drug Allergy rash [facility] (20 sources) Sulfonamides (Antibiotic); Translations: [sulfa drugs] Drug allergy rash [facility] (20 sources) POLYETHYLENE GLYCOL 3350 / Potassium Chloride / Sodium Bicarbonate / Sodium Chloride / sodium sulfate Drug Allergy 12-19-19 16 Rash, Unknown [facility] [employer] Other (20 sources) Sulfonamides (Antibiotic) Propensity to adverse reactions Unknown [facility] Other (20 sources) phenegran Propensity to adverse reactions rash [facility] Other (19 sources) Iothalamate; Translations: [Reglan] Drug Allergy 02-28-20 15 Comment:twitch ing [facility] (4 sources) Levamisole; Translations: [Phenergan] Drug Allergy 08-27-19 12 [facility] (3 sources) POLYETHYLENE GLYCOL 3350 / Potassium Chloride / Sodium Bicarbonate / Sodium Chloride / sodium sulfate Drug Allergy 06-04-19 16 [facility] (13 sources) Codeine; Translations: [CODEINE] Drug Allergy 08-13-19 24 Hives [facility] (2 sources) Sulfonamides (Antibiotic) Drug allergy (disorder) 09-16-19 13 [facility] (15 sources) Codeine Drug Allergy Unknown [facility] Other (20 sources) hydrALAZINE; Translations: [HYDRALAZINE] Drug Allergy 08-13-19 24 Unknown, Hives [facility] (20 sources) Substance with sulfonamide structure and antibacterial mechanism of action (substance) Drug allergy 05-10-20 13 Other, Rash, Unknown, Wheezing [facility] Other (11 sources) Sulfamethoxazole / Trimethoprim; Translations: [SULFAMETHOXAZOLE-T RIMETHOPRIM] Drug Allergy 12-19-19 16 [facility] (3 sources) Metoclopramide; Translations: [METOCLOPRAMIDE HCL] Drug Allergy 11-20-19 18 [place] (2 sources) Food Allergy Formula Propensity to adverse reactions to drug 03-17-20 16 Wheezing [facility] (1 source) Codeine Drug Allergy 03-04-20 24 [facility] (1 source) hydrALAZINE Drug Allergy 03-04-20 24 [facility] (1 source) diazePAM; Translations: [DIAZEPAM] Drug Allergy 08-31-19 [facility] (1 source) PEG 3350-ELECTROLYTES; Translations: [PEG 3350-ELECTROLYTES] Propensity to adverse reactions to drug (disorder) 01-01-20 [facility] Medications Current Medications Medication Drug Class(es) Dates Sig (Normalized) Sig (Original) amoxicillin 875 mg / clavulanate 125 mg oral tablet (3 sources) Penicillin-class Antibacterial Start: 07-13-2024 take 1 tablet by mouth twice daily Amoxicillin-Pot Clavulanate 875-125 mg tablet Active 1 TAB PO Twice daily July 13, 2024 1:00am Start: 05-25-2022 End: 06-04-2022 take 1 tablet by mouth every twelve hours Augmentin 875 mg oral tablet = 1 tab(s), Oral, q12hr, X 10 day(s), # 20 tab(s), Refills(s) 0, Pharmacy: [facility], 180.3, cm, 05/22/22 6:47:00 EST, Height/Length Dosing, 136.5, kg, 05/22/22 6:47:00 EST, Weight Dosing Start Date: 05/25/22 Stop Date: 06/04/22 Status: Ordered Start: 04-18-2022 End: 04-28-2022 take 1 tablet by mouth every twelve hours Augmentin 875 mg oral tablet = 1 tab(s), Oral, q12hr, X 10 day(s), # 20 tab(s), Refills(s) 0, Pharmacy: [facility], 180, cm, 04/14/22 11:50:00 EST, Height/Length Dosing, 135.5, kg, 04/14/22 11:50:00 EST, Weight Dosing Start Date: 04/18/22 Stop Date: 04/28/22 Status: Ordered apixaban 5 mg oral tablet (20 sources) Factor Xa Inhibitor Start: 07-05-2024 take 1 tablet by mouth twice daily Apixaban (Eliquis) 5 mg tablet Active 5 MG PO Twice daily July 05, 2024 1:00am Start: 11-19-2023 End: 07-05-2024 take 1 tablet by mouth twice daily Apixaban 2.5 mg tablet Discontinued 2.5 MG PO Twice daily November 19, 2023 12:00am July 05, 2024 2:37pm Start: 08-16-2022 take 1 tablet by [facility] twice daily apixaban 2.5 mg oral tablet 2.5 mg = 1 tab(s), Oral, BID, # 60 tab(s), Refills(s) 0, Pharmacy: [facility], 180, cm, 08/13/22 9:23:00 EDT, Height/Length Dosing, 136.5, kg, 08/13/22 9:23:00 EDT, Weight Dosing Start Date: 08/16/22 Status: Ordered Start: 12-05-2020 take 2 tablets by mo [facility] twice daily Eliquis 5 mg oral tablet [...] Inhibitor, Nonsteroidal Anti-inflammatory Drug Start: 11-19-2023 take 1 tablet by mouth once daily Aspirin 81 mg tablet,chewable Active 81 MG PO Daily November 19, [...] sources) HMG-CoA Reductase Inhibitor Start: 03-08-2016 take 1 tablet by mouth once daily Atorvastatin 80 mg tablet Active 80 MG PO Daily May 01, 2017 1:00am Bariatric Multivitamins with 45 mg Iron oral capsule (4 sources) Start: 11-02-2019 take 1 capsule by mouth three times daily Bariatric Multivitamins with 45 mg Iron oral capsule 1 cap(s), Oral, TID Start Date: 11/02/19 Status: Ordered bumetanide 1 mg oral tablet (20 sources) Loop Diuretic Start: 07-05-2024 take 1 tablet by mouth twice daily Bumetanide 1 mg tablet Active 3 MG PO Twice daily July 05, 2024 2:38pm Start: 04-14-2022 take 2 tablets by mo [facility] twice daily bumetanide 1 mg Tab 2 [...] Date: 07/28/18 Status: Ordered Start: 05-01-2017 End: 07-05-2024 take 1 tablet by mouth once daily in the morning Bumetanide 1 mg tablet Discontinued 1 MG PO Every morning November 19, 2023 9:05am July 05, 2024 2:51pm Start: 05-01-2017 End: 11-19-2023 take 2 mg [...] 0 Start Date: 04/14/22 Status: Ordered carvedilol 6.25 mg oral tablet (20 sources) alpha-Adrenergi c Shayan, beta-Adrenergic Shayan Start: 07-05-2024 End: 07-13-2024 take 1 tablet by mouth twice daily Carvedilol 6.25 mg tablet Discontinued 6.25 MG PO Twice daily July 05, 2024 1:00am July 13, 2024 11:34am Start: 11-19-2023 End: 07-05-2024 take 1 tablet by mouth twice daily Carvedilol 3.125 mg tablet Discontinued 3.125 MG PO Twice daily November 19, 2023 12:00am July 05, 2024 2:38pm Start: 04-14-2022 take 1 tablet by alissa th twice daily Coreg 3.125 mg Tab 3.125 mg = 1 tab(s), Oral, BID, Refills(s) 0 Start Date: 04/14/22 Status: Ordered Start: 04-14-2022 carvedilol (Co reg) 3.125 MG tablet every 12 (twelve) hours. 04/14/2022 Active Start: 08-23-2020 End: 11-19-2023 take 1 tablet by mouth twice daily Carvedilol 12.5 mg Tablet Discontinued 12.5 MG PO Twice daily August 23, 2020 12:00am November 19, 2023 9:05am Start: 03-08-2016 End: 06-22-2019 Carvedilol 25 mg tablet Disc ontinued TABLET May 01, 2017 1:00am June 22, 2019 2:32pm take 1 tablet by alissa every twelve hours Carvedilol 3.125 MG 1 [...] Daily, # 30 cap(s), Refills(s) 0, Pharmacy: [facility], 180, cm, 08/13/22 9:23:00 EDT, Height/Length Dosing, 136.5, kg, 08/13/22 9:23:00 EDT, Weight Dosing Start Date: 08/15/22 Status: Ordered Start: 08-23-2020 take 1 capsule by mo [facility] once daily Cholecalciferol (Vitamin D3) (Vitamin D3) 25 mcg (1,000 unit) Capsule Active 25 MCG PO Daily August 23, 2020 12:00am Start: 10-21-2018 take 1 tablet by alissa two times weekly cholecalciferol, vitamin D3, 50,000 units tablet Indications: Intestinal malabsorption, unspecified type , Malnutrition, unspecified type ([facility]) , Vitamin D deficiency Take 1 tablet (50,000 Units total) by mouth 2 (two) times a week. 24 tablet 10/21/2018 Active take 1 capsule by mo [facility] once daily Cholecalciferol 50 MCG (2000 UT) [...] Refills(s) 0 Start Date: 12/05/20 Status: Ordered collagenase 0.25 unt/mg topical ointment (2 sources) Collagen-specific Enzyme Start: 07-05-2024 Collagenase Clostridium Histo. (Santyl) 250 unit/gram ointment Active 1 APPLIC TOPICAL .twice a week July 05, 2024 1:00am Continuous Glucose Sensor (FreeStyle Wilbert 2 Sensor) [facility]9 sources[place] Start: 03-07-2024 End: 05-30-2024 Continuous [facility] S[facility]Style Wilbert [facility] Sensor[facility] Indications: Type 2 diabetes mellitus with hyperglycemia, unspecified whether snf insulin use ([facility]) Inject 1 kit under the skin every 14 (fourteen) days 6 each 1 03/07/2024 05/30/2024 Active dapagliflozin 10 mg oral tablet (20 sources) Sodium-Glucose Cotransporter 2 Inhibitor Start: 04-14-2022 take 1 tablet by mouth once daily Dapagliflozin Propanediol (Farxiga) 10 mg tablet Active 10 MG PO Daily November 19, 2023 12:00am Daridorexant (6 sources) Start: 03-02-2024 take 1 tablet by mouth once daily at bedtime Daridorexant (Quviviq) 50 mg tablet Active 50 MG PO Daily at bedtime March 01, 2024 11:00pm Start: 03-02-2024 take 1 tablet by alissa th once daily at bedtime Daridorexant (Quviviq) 50 mg tablet Active 50 MG PO Daily at bedtime March 02, 2024 12:00am daridorexant 25 MG [...] day Active diazePAM 2 mg oral tablet (2 sources) Benzodiazepine take 5 tablets by mouth once daily at bedtime diazePAM (VALIUM) 2 mg tablet Take 10 mg by mouth once daily at bedtime. Active Diclofenac (20 sources) Nonsteroidal Anti-inflammatory Drug Start: 07-05-19 apply 2 g topically four times daily Diclofenac Sodium 1 % gel Active 2 GM TOPICAL Four times daily July 05, 2024 1:00am Start: 07-05-2024 apply 2 g topically four times daily Diclofenac Sodium 1 % gel Active 2 GM TOPICAL Four times daily July 05, 2024 12:00am Start: 05-20-2022 diclofenac sod ium 1 % gel APPLY TWO TO FOUR [...] day(s), # 28 cap(s), Refills(s) 0, Pharmacy: [facility], 180.3, cm, 05/22/22 6:47:00 EST, Height/Length Dosing, 136.5, kg, 05/22/22 6:47:00 EST, Weight Dosing Start Date: 05/24/22 Stop Date: 06/07/22 Status: Ordered doxycycline hyclate 100 mg oral capsule (20 sources) Tetracycline -class Drug Start: 07-05-2024 take 1 capsule by mouth twice daily Doxycycline Hyclate 100 mg capsule Active 100 MG PO Twice daily July 05, 2024 1:00am Start: 06-12-2023 take 1 tablet by alissa every twenty-four hours Doxycycline Hyclate 100 MG 1 tablet Orally Once a day for 10 day(s) Jun, Active Start: 04-18-2022 End: 04-28-2022 take 1 capsule by mouth twice daily doxycycline hyclate 100 mg Cap 100 mg = 1 cap(s), Oral, BID, X 10 day(s), # 20 cap(s), Refills(s) 0, Pharmacy: [facility], 180, cm, 04/14/22 11:50:00 EST, Height/Length Dosing, 135.5, kg, 04/14/22 11:50:00 EST, Weight Dosing Start Date: 04/18/22 Stop Date: 04/28/22 Status: Ordered Start: 07-28-2018 take 1 capsule by mo [facility] twice daily doxycycline hyclate 100 mg Cap 100 mg = 1 cap(s), Oral, BID, Other (see comment) Start Date: 07/28/18 Status: Ordered Start: 05-01-2017 End: 11-19-2023 take 1 capsule by mouth twice daily Doxycycline Hyclate 100 mg tablet Discontinued 1 CAP PO Twice daily May 01, 2017 1:00am November 19, 2023 9:06am take 10 mL by mouth twice daily [...] 12/05/20 Status: Ordered Start: 05-01-2017 End: 06-22-2019 Esomeprazole Magnesium 40 mg capsule,delayed release(DR/EC) Discontinued May 01, 2017 1:00am June 22, 2019 2:31pm Start: 01-08-2016 End: 06-22-2019 Esomeprazole Magnesium Disco ntinued May 01, 2017 1:00am June 22, 2019 2:31pm eszopiclone 2 mg oral tablet (11 sources) take 1 tablet by alissa th every twenty-four hours Lunesta 2 MG 1 tablet immediately before bedtime Orally Once a day Active ferrous sulfate 325 mg oral tablet (20 sources) Start: 11-19-2023 take 1 tablet by mouth three times daily Ferrous Sulfate 325 mg (65 mg iron) tablet Active 325 MG PO Three times daily November 19, 2023 12:00am Start: 08-13-2022 take 1 tablet by alissa th twice daily ferrous sulfate 325 mg Tab 325 mg = 1 tab(s), Oral, BID, # 60 tab(s), Refills(s) 0 Start Date: 08/13/22 Status: Ordered Start: 05-22-2022 take 1 tablet by alissa th three times daily ferrous sulfate 325 mg Tab 325 mg = 1 tab(s), Oral, TID, # 90 tab(s), Refills(s) 0, Pharmacy: [facility], 180, cm, 08/13/22 9:23:00 EDT, Height/Length Dosing, 136.5, kg, 08/13/22 9:23:00 EDT, Weight Dosing Start Date: 08/15/22 Status: Ordered take 1 tablet by alissa th three times daily Ferrous Sulfate 325 (65 Fe) MG 1 tablet Orally TID Active fluticasone propionate 0.05 mg/actuat metered dose nasal spray (20 sources) Corticosteroid Start: 11-19-2023 take 1 spray(s) nasal route once daily Fluticasone Propionate (Allergy Relief (Fluticasone)) 50 mcg/actuation spray,suspension Active 1 SPRAY INTRANASAL Daily November 19, 2023 12:00am administer into each nostril Start: 08-13-2022 fluticasone Na shmuel 0.05 mg/inh [place] 2 spray(s), Nasal, Daily Allergy symptoms, 16 [...] Ordered folic acid 1 mg oral tablet (6 sources) Start: 04-11-2024 End: 08-09-2024 take 1 tablet by mouth once daily Folic Acid 1 mg tablet Active 1 MG PO Daily July 05, 2024 1:00am gabapentin 600 mg oral tablet (20 sources) Anti-epileptic Agent Start: 06-06-2024 take 1 tablet by mouth three times daily Gabapentin 600 mg tablet Active 0 .ROUTE .COMPLEX 84 June 06, 2024 9:19am TAKE ONE TABLET BY MOUTH THREE TIMES A DAY Start: 03-04-2024 End: 06-06-2024 take 1 tablet by mouth three times daily Gabapentin 600 mg tablet Discontinued 600 MG PO Three times daily 90 May 12, 2024 9:22am June 06, 2024 9:19am Start: 09-24-2023 End: 03-04-2024 take 1 tablet by mouth three times daily Gabapentin 800 mg tablet Discontinued 0 .ROUTE .COMPLEX 84 February 11, 2024 9:04am March 04, 2024 3:40pm TAKE ONE TABLET BY MOUTH THREE TIMES A DAY Start: 07-28-2018 End: 09-24-2023 take 1 tablet by mouth three times daily Gabapentin 800 mg tablet Discontinued 800 MG PO Three times daily June 22, 2019 1:00am September 24, 2023 10:56am hydrOXYzine hydrochloride 25 mg oral tablet (20 [...] Glargine (Lantus U-100 Insulin) 100 unit/mL solution (8 sources) Start: 11-19-2023 inject 30 [IU] by subcutaneous injection twice daily Insulin Glargine (Lantus U-100 Insulin) 100 unit/mL solution Active 30 UNIT SUBCUT Twice daily November 18, 2023 11:00pm Start: 11-19-2023 inject 30 [IU] by landeros bcutaneous injection twice daily Insulin Glargine (Lantus U-100 Insulin) 100 unit/mL solution Active 30 UNIT SUBCUT Twice daily November 19, 2023 12:00am 24 hr isosorbide mononitrate 30 mg extended release oral tablet (20 sources) Nitrate Vasodilator Start: 07-05-2024 Isosorbide Mononitrate 30 mg tablet extended release 24 hr Active 90 MG PO Daily July 05, 2024 2:42pm Start: 03-08-2016 End: 07-05-2024 take 1 tablet by mouth once daily, then take 1 tablet by mouth every twenty-four hours Isosorbide Mononitrate 30 mg tablet extended release 24 hr Discontinued 30 MG PO Daily May 01, 2017 1:00am July 05, 2024 2:51pm ammonium lactate 120 mg/ml topical cream (20 sources) Start: 12-05-2020 ammonium lacta te Top 12% Crm Topical, BID, Refill(s) 0 Start Date: 12/05/20 Status: Ordered Start: 12-05-2020 ammonium lacta te Top 12% Crm Topical, BID, Refill(s) 0 Start Date: 12/05/20 Status: Ordered Start: 05-01-2017 End: 06-22-2019 Ammonium Lactate 12 % cream Discontinued May 01, 2017 1:00am June 22, 2019 2:32pm Start: 05-01-2017 End: 06-22-2019 Ammonium Lactate Discontinue [...] Status: Ordered linezolid 600 mg oral tablet (11 sources) Oxazolidinone Antibacterial Start: 01-15-2023 take 1 [...] 04-14-2022 take 1 tablet by alissa th once daily Latuda 20 mg oral tablet 20 mg = 1 tab(s), Oral, Daily, # 30 tab(s), Refills(s) 0 Start Date: 04/14/22 Status: Ordered metFORMIN hydrochloride 500 mg oral tablet (20 sources) Biguanide Start: 05-20-2022 take 1 tablet by mouth twice daily Metformin 500 mg tablet Active 500 MG PO Twice daily November 19, 2023 12:00am Start: 02-23-2016 End: 11-19-2023 take 1 tablet by mouth twice daily Metformin 1,000 mg tablet Discontinued 1000 MG PO Twice daily June 22, 2019 1:00am November 19, 2023 9:10am metFORMIN HCl 10 00 TAKE ONE TABLET BY MOUTH TWICE DAILY WITH MEALS orally bid for 30 day(s) Active methotrexate 2.5 mg oral tablet (6 sources) Folate Analog Metabolic Inhibitor Start: 07-05-2024 take 1 tablet by mouth every week Methotrexate Sodium 2.5 mg tablet Active 2.5 MG PO every week July 05, 2024 1:00am Start: 01-27-2024 End: 01-26-2025 take 7 tablets by mouth every week methotrexate 2.5 MG tablet Take 7 tablets by mouth 1 (one) time per week. 01/27/2024 01/26/2025 Active metOLazone 5 mg oral tablet (13 sources) Thiazide-like Diuretic Start: 01-08-2016 take 1 tablet by mouth once daily metOLazone (ZAROXOLYN) 5 mg tablet Take 5 mg by mouth daily. 01/08/2016 Active 24 hr metoprolol succinate 25 mg extended release oral tablet (1 source) beta-Adrenergic Shayan Start: 07-13-2024 take 1 tablet by mouth every twenty-four hours Metoprolol Succinate 25 mg tablet extended release 24 hr Active 25 MG PO Once July 13, 2024 1:00am midodrine hydrochloride 5 mg oral tablet (10 sources) alpha-Adrenergic Agonist take 1 tablet by mouth three times daily at bedtime midodrine (Proamatine) 5 MG tablet TAKE ONE TABLET BY MOUTH THREE TIMES A DAY ( IN THE MORNING , AT NOON, AND AT BEDTIME ) Active moxifloxacin 5 mg/ml ophthalmic solution (11 sources) Quinolone Antimicrobial Start: 12-29-2023 moxifloxacin (Vigamox) 0.5 % ophthalmic solution Administer 1 drop into both eyes in the morning and 1 drop at noon and 1 drop in the evening and 1 drop before bedtime. 12/29/2023 Active Start: 12-29-2023 take 1 drop(s) into the eye(s) four times daily Moxifloxacin 0.5 % drops Active 1 DROPS EYE-BOTH Four times daily December 29, 2023 12:00am Start: 12-29-2023 take 1 drop(s) into the [...] 1 tablet Orally Once a day Active naloxone 2 mg/ 2 mL Inj [...] tablet (20 sources) Nitrate Vasodilator Start: 06-22-2019 Nitroglyce rin 0.4 mg Tablet, Sublingual Active 0.4 MG SUBLINGUAL every 5 to 15 minutes as needed for Chest Pain June 22, 2019 1:00am Start: 07-28-2018 Nitro 0.4 mg T ab = 1 tab(s), SubLingual, q5min, PRN Chest pain Start Date: 07/28/18 Status: Ordered Nitroglycerin 0. 4 MG as directed Sublingual Active Normal saline (13 sources) Saline Active One Touch Glucometer (20 sources) Start: [...] before bedtime. 03/28/2024 Active Start: 11-19-2023 take 1 capsule by mo ut every six hours Oxycodone 5 mg capsule Active 5 MG PO Every 6 hours November 19, 2023 12:00am Start: 04-14-2022 take 1 capsule by mo ut every twelve hours Xtampza ER 18 mg [...] 08-23-2020 take 1 capsule by mo ut twice daily Oxycodone Myristate (Xtampza Er) 18 [...] 08/16/2018 Active Start: 03-09-2016 End: 06-22-2019 Oxycodone 30 mg tablet Disco ntinued TABLET May 01, 2017 1:00am June 22, 2019 2:26pm take 1 tablet by alissa th every eight hours oxyCODONE HCl 5 MG 1 tablet Orally three times a day Active take 2 tablets by mo [facility] every six hours as needed oxyCODONE HCl 15 MG 2 Tablet Orally every 6 hours as needed 40 mg 1 tablet/bid 18 Mg Active prednisoLONE acetate 10 mg/ml ophthalmic suspension (7 sources) Corticosteroid Start: 12-29-2023 take 1 drop(s) into the eye(s) four times daily Prednisolone Acetate 1 % drops,suspension Active 1 DROPS EYE-BOTH Four times daily December 29, 2023 12:00am Start: 12-29-2023 take 1 drop(s) into the eye(s) four times daily Prednisolone Acetate Active 1 DROPS EYE-BOTH Four times daily December 29, 2023 12:00am vit 10-iron fum-folic 65-1 mg tablet (2 sources) Start: 12-20-2018 take 1 tablet by mouth once daily vit 10-iron fum-folic 65-1 mg tablet Indications: Intestinal malabsorption, unspecified type , Malnutrition, unspecified type (CMS-HCC) Take 1 tablet by mouth daily. 90 tablet 3 12/20/2018 Active primidone 50 mg oral tablet (2 sources) Anti-epilept ic Agent take 1 tablet by mouth once daily primidone (MYSOLINE) 50 mg tablet Take 50 mg by mouth nightly. Active pyridostigmine bromide 60 mg oral tablet (2 sources) pyridostigmine (MESTINON) 30 mg tablet Take 60 [...] Start: 05-09-2023 take 1 tablet by alissa th 30 minutes before bedtime Quviviq 25 mg TAKE ONE TABLET BY MOUTH 30 MINUTES BEFORE BEDTIME for 30 Apr, Active Start: 04-01-2023 take 1 tablet by alissa th 30 minutes before bedtime Quviviq 25 mg TAKE ONE TABLET BY MOUTH 30 MINUTES BEFORE BEDTIME for 30 Mar, Active Quviviq 25 MG tablet (10 sources) take 1 tablet by mouth once daily 30 minutes before bedtime Quviviq 25 MG tablet TAKE ONE TABLET BY MOUTH ONCE DAILY 30 MINUTES BEFORE BEDTIME Active insulin, regular, human 500 unt/ml injectable solution (20 sources) Insulin Start: 11-19-2023 insulin regular (HumuLIN R U-500) 500 UNIT/ML CONCENTRATED injection .COMPLEX 11/19/2023 Active Start: 11-19-2023 Insulin Regula r Hum U-500 Conc 500 unit/mL solution Active 0 SUBCUT .COMPLEX November 19, 2023 [...] mg 1 orally twice a day Active 1 mg dose 1.5 ml semaglutide 1.34 mg/ml pen injector (12 sources) semaglutide (Oze mpic, 1 MG/DOSE,) 2 MG/1.5ML solution pen-injector Inject 1 mg under the skin Active semaglutide (OZE MPIC) 0.25 mg or 0.5 mg(2 mg/1.5 mL) pen injector Ozempic 0.25 mg or 0.5 mg (2 mg/1.5 mL) subcutaneous pen injector Active sertraline 25 mg oral tablet (2 sources) Serotonin Reuptake Inhibitor Start: 07-05-2024 take 1 tablet by mouth once daily Sertraline 25 mg tablet Active 25 MG PO Daily July 05, 2024 1:00am spironolactone 50 mg oral tablet (20 sources) Aldosterone Antagonist Start: 07-05-2024 take 1 tablet by mouth once daily Spironolactone 50 mg tablet Active 50 MG PO Daily July 05, 2024 1:00am Start: 04-18-2022 End: 04-18-2022 Aldactone 50 mg Tab 100 mg = 2 tab(s), Tab, Oral, Start date 04/18/22 9:00:00 EST, 04/15/22 9:24:00 EST Start Date: 04/18/22 Stop Date: 04/18/22 Status: Completed Start: 07-28-2018 End: 07-05-2024 take 1 tablet by mouth once daily Spironolactone 100 mg Tablet Discontinued 100 MG PO Daily August 23, 2020 12:00am July 05, 2024 2:47pm take 1 tablet by alissa th in the morning spironolactone (Aldactone) 50 MG tablet Take 50 mg by mouth in the morning. Active take 1 tablet by alissa th once daily spironolactone (ALDACTONE) 25 mg tablet Take 25 mg by mouth daily. Active traZODone hydrochloride 50 mg oral tablet (2 sources) Serotonin Reuptake Inhibitor take 1 tablet by mouth twice daily traZODone (DESYREL) 50 mg tablet trazodone 50 mg tablet Take 1 tablet twice a day by oral route for 30 days. Active ursodiol 250 mg oral tablet (2 sources) Bile Acid Start: 019 take 1 tablet by mouth twice daily ursodiol (ACTIGALL) 250 mg tablet Indications: Rapid weight loss Take 1 tablet (250 mg total) by mouth 2 (two) times a day. 60 tablet 5 10/21/2018 Active valACYclovir 1000 mg oral tablet (11 sources) Herpesvirus Nucleoside Analog DNA Polymerase Inhibitor, Herpes Simplex Virus Nucleoside Analog DNA Polymerase Inhibitor, Herpes Zoster Virus Nucleoside Analog DNA Polymerase Inhibitor Start: 024 Valacyclovir (Valtrex) 1 gram tablet Active 1000 MG PO Twice daily December 29, 2023 12:00am 200 ml vancomycin 5 mg/ml injection (20 sources) Glycopeptide Antibacterial Start: 023 End: 023 take 1 g intravenously every twelve hours [...] # 60 tab(s), Refills(s) 0, Pharmacy: [id number], 180.3, cm, 05/22/22 6:47:00 EST, Height/Length [...] Cholinergic Muscarinic Antagonist, Antidiarrheal Start: 11-19-2023 End: 04-14-2024 take 1 tablet by mouth four times daily as needed for diarrhea Diphenoxylate-Atro pine 2.5-0.025 mg tablet Discontinued 1 TAB PO Four times daily as needed for diarrhea December 29, 2023 12:19pm February 27, 2024 [...] MOUTH THREE TIMES A DAY NEEDED for 10 Jun, Active Start: 05-20-2022 take 1 tablet by alissa th four times daily atropine-diphenoxylate 0.025 mg-2.5 mg Tab 1 tab(s), Oral, QID for loose stool, Refill(s) 0 Start Date: 05/20/22 Status: Ordered Start: 04-14-2022 Lomotil Refill (s) 0, 2.5mg TID PRN Start Date: 04/14/22 Status: Ordered Start: 02-26-2022 diphenoxylate- atropine (Lomotil) 2.5-0.025 MG tablet 1 tablet 02/26/2022 Active baclofen 10 mg oral tablet (20 sources) gamma-Aminobutyric Acid-ergic Agonist Start: 05-01-2017 End: 06-22-2019 Baclofen 10 mg tablet Discontinued TABLET May 01, 2017 1:00am June 22, 2019 2:32pm 12 hr buPROPion hydrochloride 200 mg extended release oral tablet (20 sources) Aminoketone Start: 08-23-2020 End: 08-13-2023 take 1 tablet by mouth once daily Bupropion Hcl 200 mg Tablet Sustained-Release 12 Hr Discontinued 200 MG PO Daily August 23, 2020 12:00am August 13, 2023 9:35am Start: 11-02-2019 take 1 tablet by alissa once daily Wellbutrin SR 100 mg Tab-ER 100 mg = 1 tab(s), Oral, Daily, Depression Start Date: 11/02/19 Status: Ordered calcium citrate 500 mg oral tablet (20 sources) Start: 08-23-2020 End: 11-19-2023 take 500 mg by mouth three times daily Calcium Citrate Discontinued 500 MG PO Three times daily August 23, 2020 12:00am November 19, 2023 9:13am Calcium Citrate 500 mg Tablet, Effervescent (3 sources) Start: 08-23-2020 End: 11-19-2023 take 1 tablet by mouth three times daily Calcium Citrate 500 mg Tablet, Effervescent Discontinued 500 MG PO Three times daily August 23, 2020 12:00am November 19, 2023 9:13am Start: 08-23-2020 End: 11-19-2023 take 1 tablet by mouth three times daily Calcium Citrate 500 mg Tablet, Effervescent Discontinued 500 MG PO Three times daily August 22, 2020 11:00pm November 19, 2023 8:13am Calcium Citrate Chewy Bite 5 00-500 MG-UNIT (19 sources) Calcium Citrate Chewy Bite [...] 08, 2019 1:00am August 23, 2020 8:17am clonazePAM 1 mg oral tablet (20 sources) Benzodiazepine Start: 10-14-2023 End: 03-02-2024 take 0.5-1 tablets by mouth once daily 30 minutes before bedtime Clonazepam 1 mg tablet Discontinued 0 PO Daily at bedtime January 25, 2024 5:33pm March 02, 2024 4:15pm 1/2-1 tablet orally daily at bedtime; administer 30 minutes before bedtime Daridorexant (Quviviq) 25 mg tablet (20 sources) Start: 11-19-2023 End: 03-02-2024 take 1 tablet by mouth once daily at bedtime Daridorexant (Quviviq) 25 mg tablet Discontinued 25 MG PO Daily at bedtime November 18, 2023 11:00pm March 02, 2024 3:16pm Start: 11-19-2023 End: 03-02-2024 take 1 tablet [...] PO Daily at bedtime September 21, 2023 11:44am October 14, 2023 3:09pm Start: 09-21-2023 End: 10-14-2023 take 1 tablet by mouth once daily at bedtime Daridorexant (Quviviq) 25 mg tablet Discontinued 25 MG PO Daily at bedtime September 21, 2023 12:44pm October 14, 2023 4:09pm Start: 09-21-2023 End: 09-21-2023 take 1 tablet by mouth once daily at bedtime Daridorexant (Quviviq) 25 mg tablet Discontinued 25 MG PO Daily at bedtime September 21, 2023 11:43am September 21, 2023 11:44am Start: 09-21-2023 End: 09-21-2023 take 1 tablet by mouth once daily at bedtime Daridorexant (Quviviq) 25 mg tablet Discontinued 25 MG PO Daily at bedtime September 21, 2023 12:43pm September 21, 2023 12:44pm Start: 08-13-2023 End: 09-21-2023 take 1 tablet by mouth once daily at bedtime Daridorexant (Quviviq) 25 mg tablet Discontinued 25 MG PO Daily at bedtime August 13, 2023 8:56am September 21, 2023 11:44am Start: 08-13-2023 End: 09-21-2023 take 1 tablet [...] PO Daily at bedtime July 13, 2023 3:38pm August 13, 2023 8:59am Start: 07-13-2023 End: 08-13-2023 take 1 tablet by mouth once daily at bedtime Daridorexant (Quviviq) 25 mg tablet Discontinued 25 MG PO Daily at bedtime July 13, 2023 4:38pm August 13, 2023 9:59am Start: 07-13-2023 End: 07-13-2023 take 1 tablet by mouth once daily at bedtime Daridorexant (Quviviq) 25 mg tablet Discontinued 25 MG PO Daily at bedtime July 13, 2023 12:00am July 13, 2023 3:38pm Start: 07-13-2023 End: 07-13-2023 take 1 tablet [...] week(s), # 8 cap(s), Refills(s) 0, Pharmacy: [id number], 180, cm, 08/13/22 9:23:00 EDT, Height/Length Dosing, 136.5, kg, 08/13/22 9:23:00 EDT, Weight Dosing Start Date: 08/15/22 Stop Date: 10/10/22 Status: Ordered Start: 05-22-2022 End: 07-03-2022 ergocalciferol 50,000 intl u nits Cap 50,000 International_Unit = 1 cap(s), Oral, q7day, X 6 week(s), # 6 cap(s), Refills(s) 0, Pharmacy: [id number], 180.3, cm, 05/22/22 6:47:00 EST, Height/Length Dosing, 136.5, kg, 05/22/22 6:47:00 EST, Weight Dosing Start Date: 05/22/22 Stop Date: 07/03/22 Status: Ordered Ergocalciferol 1 .25 MG (65668 UT) 1 capsule Orally Active finasteride 5 mg oral tablet (20 sources) 5-alpha Reductase Inhibitor Start: 08-08-2021 End: 07-05-2024 take 1 tablet by mouth once daily Finasteride 5 mg tablet Discontinued 5 MG PO Daily November 19, 2023 12:00am July 05, 2024 2:41pm hydrALAZINE hydrochloride 10 mg oral tablet (20 sources) Arteriolar Vasodilator Start: 05-01-2017 End: 06-22-2019 Hydralazine 10 mg tablet Discontinued TABLET May 01, 2017 1:00am June 22, 2019 2:31pm Start: 05-01-2017 End: 06-22-2019 Hydralazine Discontinued TAB LET May 01, 2017 1:00am June 22, 2019 2:31pm insulin glargine 100 unt/ml injectable solution (20 sources) Insulin Analog Start: 04-15-2022 End: 04-15-2022 insulin glargine 100 units/m L SubQ [place] 10 mL 30 unit(s) = [...] Osmotic Laxative Start: 05-01-2017 End: 06-22-2019 Lactulose 10 gram/15 mL solution Discontinued SOLUTION May 01, 2017 1:00am June 22, 2019 2:31pm 24 hr levomilnacipran 120 mg extended release oral capsule (20 sources) Serotonin and Norepinephrine Reuptake Inhibitor Start: 05-01-2017 End: 06-22-2019 Levomilnacipran (Fetzima) 120 mg capsule,extended release 24hr Discontinued May 01, 2017 1:00am June 22, 2019 2:33pm losartan potassium 100 mg oral tablet (20 sources) Angiotensin 2 Receptor Shayan Start: 07-28-2018 End: 11-19-2023 take 1 tablet by mouth once daily Losartan 100 mg Tablet Discontinued 100 MG PO Daily August 23, 2020 12:00am November 19, 2023 9:13am Start: 05-01-2017 End: 06-22-2019 Losartan 25 mg tablet Discon tinued TABLET May 01, 2017 1:00am June 22, 2019 2:31pm Start: 05-01-2017 End: 06-22-2019 Losartan Discontinued TABLET May 01, 2017 1:00am June 22, 2019 2:31pm lubiprostone 0.024 mg oral capsule (20 sources) Chloride Channel Activator Start: 05-01-2017 End: 06-22-2019 Lubiprostone (Amitiza) 24 mcg capsule Discontinued May 01, 2017 1:00am June 22, 2019 2:31pm magnesium oxide 400 mg oral tablet (20 sources) Start: 08-23-2020 End: 11-19-2023 take 1 tablet by mouth three times daily Magnesium Oxide 400 mg magnesium Tablet Discontinued 400 MG PO Three times daily August 23, 2020 12:00am November 19, 2023 9:13am Start: 09-07-2017 take 2 tablets by mo uth twice daily magnesium oxide (MAG-OX) 400 mg tablet Take 2 tablets by mouth 2 (two) times a day. 0 09/07/2017 Active Magnesium Oxide 400 tid Active mirtazapine 15 mg oral tablet (20 sources) Start: 06-22-2019 End: 08-23-2020 take 1 tablet by mouth once daily Mirtazapine 15 mg tablet Discontinued 15 MG PO Daily June 22, 2019 1:00am August 23, 2020 8:20am Start: 10-10-2017 take 3 tablets by mo [facility] once daily mirtazapine (REMERON) 15 mg tablet Take 45 mg by mouth nightly. 2 10/10/2017 Active 2 ml naloxone hydrochloride 1 mg/ml prefilled syringe (20 sources) Opioid Antagonist Start: 11-19-2023 End: 07-05-2024 Naloxone 1 mg/mL syringe Discontinued 1 MG IM As Directed November 19, 2023 12:00am July 05, 2024 2:43pm Start: 11-19-2023 Naloxone Activ e 1 MG IM As Directed November 19, 2023 12:00am Naloxone HCl 2 M G/2ML as directed Injection Active ondansetron 8 mg disintegrating oral tablet (20 sources) Serotonin-3 Receptor Antagonist Start: 11-19-2023 End: 03-04-2024 take 1 tablet by mouth once daily as needed for nausea and vomiting Ondansetron 8 mg tablet,disintegrating Discontinued 8 MG PO Daily as needed for nausea and vomiting December 29, 2023 12:18pm March 04, 2024 3:22pm Start: 06-22-2019 End: 11-19-2023 take 1 tablet by mouth every eight hours as needed for nausea Ondansetron Hcl 8 mg tablet Discontinued 8 MG PO Every 8 hours as needed for Nausea June 22, 2019 1:00am November 19, 2023 9:13am Start: 07-28-2018 take 1 tablet by alissa three times daily as needed for nausea Zofran 8 mg Tab 8 mg = 1 tab(s), Oral, TID, PRN Nausea/Vomiting, Nausea Start Date: 07/28/18 Status: Ordered take 1 tablet by alissa every eight hours as needed ondansetron (ZOFRAN) 4 mg tablet Take 4 mg by mouth every 8 (eight) hours as needed. Active take 1 tablet by alissa th four times daily as needed Ondansetron HCl 8 mg TAKE ONE TABLET BY MOUTH FOUR TIMES A DAY NEEDED for 40 Active take 1 tablet by alissa once daily as needed Ondansetron 8 MG 1 tablet on the tongue and allow to dissolve as needed Orally Once a day Active OXcarbazepine 150 mg oral tablet (20 sources) Anti-epileptic Agent Start: 08-23-2020 End: 11-19-2023 take 1 tablet by mouth once daily Oxcarbazepine 150 mg Tablet Discontinued 150 MG PO Daily August 23, 2020 12:00am November 19, 2023 9:13am take 1 tablet by mouth twice chelsi ly OXcarbazepine (TRILEPTAL) 150 mg tablet Take 150 mg by mouth 2 (two) times a day. Active pantoprazole 40 mg delayed release oral tablet (20 sources) Proton Pump Inhibitor Start: 06-22-2019 End: 08-23-2020 take 1 tablet by mouth once daily Pantoprazole 40 mg Tablet,Delayed Release (Dr/Ec) Discontinued 40 MG PO Daily June 22, 2019 1:00am August 23, 2020 8:18am pioglitazone 30 mg oral tablet (11 sources) Peroxisome Proliferator Receptor alpha Agonist, Peroxisome Proliferator Receptor gamma Agonist, Thiazolidinedione take 1 tablet by mouth once daily Pioglitazone HCl 30 MG TAKE 1 TABLET BY MOUTH DAILY Oral for 28 Days Not-Taking potassium chloride 10 meq extended release oral capsule (20 sources) Start: 11-19-2023 End: 07-05-2024 take 1 capsule by mouth twice daily Potassium Chloride 10 mEq capsule, extended release Discontinued 10 MEQ PO Twice daily November 19, 2023 12:00am July 05, 2024 2:45pm Start: 08-13-2022 take 1 capsule by [facility] twice daily as needed potassium chloride 10 mEq Cap-ER 10 mEq = 1 cap(s), Oral, BID, PRN Other (see comment), # 60 cap(s), Refills(s) 0 Start Date: 08/13/22 Status: Ordered Start: 12-05-2020 take 6 tablets by [facility] twice daily potassium chloride 10 mEq ER Tab 60 mEq = 6 tab(s), Oral, BID, Refills(s) 0 Start Date: 12/05/20 Status: Ordered Start: 05-01-2017 End: 06-22-2019 Potassium Chloride 20 mEq/15 mL liquid Discontinued LIQUID May 01, 2017 1:00am June 22, 2019 2:33pm potassium chlori de CR (Klor-Con) 10 MEQ ER tablet every 12 (twelve) hours. Active take 1 tablet by mouth once pota ssium chloride CR (Klor-Con M20) 20 MEQ ER tablet TAKE ONE TABLET BY MOUTH ONCE TO TWICE DAILY DIRECTED Active potassium chlori de (KAYCIEL) 20 mEq/15 mL solution Take by mouth daily. Active tamsulosin hydrochloride 0.4 mg oral capsule (20 sources) alpha-Adrenergic Shayan Start: 11-19-2023 End: 07-05-2024 take 1 capsule by mouth once daily Tamsulosin 0.4 mg capsule Discontinued 0.4 MG PO Daily November 19, 2023 12:00am July 05, 2024 2:48pm Start: 01-15-2023 End: 01-15-2023 tamsulosin 0.4 mg Cap 0.4 mg = 1 cap(s), Cap, Oral, Start date 01/15/23 9:00:00 EDT, 01/10/23 16:10:00 EDT Start Date: 01/15/23 Stop Date: 01/15/23 Status: Completed Start: 07-21-2022 take 1 capsule by [facility] twice daily tamsulosin 0.4 mg Cap 0.4 mg = 1 cap(s), Oral, BID, # 60 cap(s), Refills(s) 6, Pharmacy: [id number], 180, cm, 07/14/22 15:08:00 EST, [...] Completed Start: 02-25-2022 take 1 capsule by [facility] twice daily tamsulosin 0.4 mg Cap 0.4 mg = 1 cap(s), Oral, BID, # 60 cap(s), Refills(s) 6, Pharmacy: [facility], 180, cm, 11/30/21 15:13:00 EDT, Height/Length Dosing, 145, kg, 12/01/21 6:57:00 EDT, Weight Dosing Start Date: 02/25/22 Status: Ordered Start: 01-29-2021 End: 12-02-2021 tamsulosin 0.4 mg Cap 0.4 mg = 1 cap(s), Cap, Oral, Start date 12/02/21 21:00:00 EDT, 11/30/21 22:38:00 EDT Start Date: 12/02/21 Stop Date: 12/02/21 Status: Completed Start: 06-22-2019 End: 08-23-2020 take 1 capsule by mouth once daily Tamsulosin 0.4 mg Capsule Discontinued 0.4 MG PO Daily June 22, 2019 1:00am August 23, 2020 8:20am take 1 capsule by [facility] every twenty-four hours in the morning tamsulosin (Flomax) 0.4 MG 24 hr capsule Take 0.4 mg by mouth in the morning and 0.4 mg before bedtime. Active terazosin 5 mg oral capsule (20 sources) alpha-Adrenergic Shayan Start: 09-07-2017 End: 11-19-2023 take 1 capsule by mouth once daily Terazosin 5 mg Capsule Discontinued 5 MG PO Daily June 22, 2019 1:00am November 19, 2023 9:13am tiotropium 0.018 mg inhalation powder (20 sources) Anticholinergic Start: 06-22-2019 End: 07-05-2024 take 1 capsule by inhalation once daily Tiotropium [place] (Spiriva With Handihaler) 18 mcg Capsule, W/Inhalation Device Discontinued 1 CAP INHALATION Daily June 22, 2019 1:00am July 05, 2024 2:48pm Start: 07-28-2018 Spiriva 18 mcg Cap 18 microgram = 1 cap(s), Inhalation, Daily, Using only ONE capsule, have the patient inhale twice, COPD Start Date: 07/28/18 Status: Ordered Start: 07-28-2018 Spiriva 18 mcg Cap 18 microgram = 1 cap(s), Inhalation, Daily, Using only ONE capsule, have the patient inhale twice, COPD Start Date: 07/28/18 Status: Ordered take 1 capsule by in halation in the morning tiotropium (Spiriva) [address] 1 capsule into inhaler and inhale in the morning. Active take 1 capsule by in halation [...] Spiriva HandiHal er 18 MCG Inhalation Active divalproex sodium 125 mg delayed release oral tablet (20 sources) Mood Stabilizer, Anti-epileptic Agent Start: 11-19-2023 End: 07-05-2024 take 1 tablet by mouth once daily Divalproex 125 mg tablet,delayed release (DR/EC) Discontinued 125 MG PO Daily November 19, 2023 12:00am July 05, 2024 2:40pm Start: 08-13-2022 take 1 capsule by [facility] twice daily divalproex sodium 125 mg Cap-EC 125 mg = 1 cap(s), Oral, BID, # 90 cap(s), Refills(s) 0 Start Date: 08/13/22 Status: Ordered Start: 06-18-2022 take 1 tablet by alissa at bedtime divalproex sodium 250 mg Oral EC Tab 250 mg = 1 tab(s), Oral, Bedtime, Refills(s) 0 Start Date: 06/18/22 Status: Ordered Start: 04-15-2022 take 1 tablet by alissa twice daily divalproex sodium 500 mg Oral EC Tab 500 mg = 1 tab(s), Oral, BID, Refills(s) 0 Start Date: 04/15/22 Status: Ordered Start: 04-15-2022 take 1 tablet by alissa once daily divalproex sodium 500 mg Oral EC Tab 500 mg = 1 tab(s), Oral, Daily, Refills(s) 0 Start Date: 04/15/22 Status: Ordered Start: 07-28-2018 take 2 tablets by mo [facility] once daily Depakote ER 500 mg Tab-ER [...] TABLET BY MOUTH DAILY for 28 Active Vitamin D3 1000 intl units oral capsule (14 sources) Start: 12-05-2020 take 1 capsule by mouth once daily Vitamin D3 1000 intl units oral capsule 1,000 International_Unit = 1 cap(s), Oral, Daily, Refills(s) 0 [...] Acid-ergic Agonist Start: 02-09-2016 End: 08-13-2023 take 1 tablet by mouth once daily Zolpidem 10 mg tablet Discontinued 10 MG PO Daily June 22, 2019 1:00am August 13, 2023 9:39am Problems Active Problems Problem Classification Problem Date Documented Da te Episodic/Chronic Abdominal hernia (20 sources) Hernia of abdominal cavity; Translations: [Unspecified abdominal hernia without obstruction or gangrene] Episodic Abdominal pain (20 sources) Abdominal pain; Translations: [Unspecified abdominal pain] Onset: Episodic Acute myocardial infarction (20 sources) Myocardial [...] kidney disease, unspecified] Onset: 2 Chronic Chronic obstructive pulmonary disease and bronchiectasis (20 sources) Chronic obstructive lung disease; Translations: [Chronic obstructive pulmonary disease, unspecified] Onset: 2 Resolved: 3 07-28-2018 Chronic Chronic ulcer of skin (20 sources) [...] failure] Onset: 4 Resolved: 3 07-28-2018 Chronic Deficiency and other [...] lower urinary tract symptoms] Onset: 2 Chronic Infective arthritis and osteomyelitis (except that caused by tuberculosis or sexually transmitted disease) (20 sources) Chronic osteomyelitis; Translations: [Other chronic osteomyelitis, unspecified site] Onset: 7 Chronic Joint disorders and dislocations; trauma-related (20 sources) Tear of meniscus of knee; Translations: [Unspecified tear of unspecified meniscus, current injury, unspecified knee, initial encounter] Episodic Miscellaneous mental health disorders (20 sources) Primary insomnia; Translations: [Primary insomnia] Chronic Nausea and vomiting (20 sources) Nausea and vomiting; Translations: [Nausea with vomiting, unspecified] Episodic Noninfectious gastroenteritis (1 source) Noninfective gastroenteritis and [...] sources) Long-term current use of insulin; Translations: [intermediate designer (current) use of insulin] Episodic Other aftercare (1 source) intermediate designer (current) use of insulin Episodic Other aftercare (1 source) intermediate designer (current) use of antibiotics Episodic Other aftercare (1 source) Long-term current use of drug therapy; Translations: [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] Onset: 3 Episodic Other aftercare (1 source) Procedure carried out on subject; Translations: [Encounter for other specified aftercare] Onset: 3 Episodic Other aftercare (3 sources) 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; Translations: [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] Onset: 4 Episodic Other [...] Amputee; Translations: [Acquired absence of limb, unspecified] 10-28-2024 Chronic Other circulatory disease (2 sources) History of insertion of inferior vena caval [...] Episodic Other diseases of kidney and ureters (2 sources) Renal mass; Translations: [Other specified disorders of kidney and ureter] Onset: 4 09-30-2018 Chronic Other diseases of veins and lymphatics (2 sources) Chronic venous hypertension (idiopathic) with ulcer of left lower extremity; Translations: [Chronic venous hypertension (idiopathic) with ulcer of left lower extremity] Onset: 4 Chronic Other disorders of stomach and duodenum (6 sources) Gastroparesis; Translations: [Gastroparesis] Onset: 2 12-29-2023 Episodic Other disorders of stomach and duodenum (20 sources) Gastroparesis syndrome; Translations: [Gastroparesis] Onset: 4 12-29-2023 Episodic Other eye disorders (3 sources) Unspecified corneal ulcer, bilateral; Translations: [Unspecified corneal ulcer, bilateral] Onset: 4 Episodic Other gastrointestinal disorders (20 sources) Irritable bowel syndrome; Translations: [Irritable bowel syndrome without diarrhea] Chronic Other gastrointestinal disorders (20 sources) Constipation; Translations: [Constipation, unspecified] Episodic Other hereditary and degenerative nervous system conditions (10 sources) Restless legs; Translations: [Restless legs syndrome] 10-14-2023 Chronic Other hereditary and degenerative nervous system conditions (8 sources) Restless legs syndrome; Translations: [Restless legs [...] to excess calories] Onset: 4 Chronic Other nutritional; endocrine; and metabolic disorders (2 sources) Morbid (severe) obesity due to excess calories; Translations: [Morbid (severe) obesity due to excess calories] Onset: 4 Chronic Other nutritional; endocrine; and metabolic disorders (1 source) Localized amyloidosis; 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 Peripheral and visceral atherosclerosis (5 sources) Peripheral vascular disease, unspecified; Translations: [PERIPHERAL [...] (pediatric)] Onset: 4 Chronic Residual codes; unclassified (10 sources) Obstructive sleep apnea (adult) (pediatric); Translations: [Obstructive sleep apnea (adult)(pediatric)] Onset: 2 Resolved: 2 Chronic Residual codes; unclassified (1 source) Other sleep apnea; Translations: [OTHER SLEEP APNEA] Onset: 1 Chronic Residual codes; unclassified (1 source) Patient encounter status; Translations: [Other specified health status] Onset: 2 Episodic Residual codes; unclassified (11 sources) Insomnia; Translations: [Insomnia, unspecified] 07-13-2023 Episodic Residual codes; unclassified (11 sources) Insomnia, unspecified; Translations: [Insomnia, unspecified] 08-13-2023 [...] fo ot wound 08/14/2022 Unclassified (1 source) intermediate (current) use of antimetabolite agent; Translations: [intermediate (current) use of antimetabolite agent] Onset: Viral infection (12 sources) Disease caused by 2019-nCoV; Translations: [COVID-19] 09-09-2023 Episodic Past or Other Problems Problem Classification Problem Date Documented Da te Episodic/Chronic Acquired foot deformities (1 source) Other deformities of toe(s) (acquired), right foot; Translations: [OTHER DEFORMITIES TOES ACQ RT FOOT] Onset: 06-28-2021 Episodic Coronary atherosclerosis and other heart disease (20 sources) Coronary arteriosclerosis; Translations: [Atherosclerotic heart disease of [place] coronary artery without angina pectoris] Onset: 08-08-2011 Resolved: 02-05-2023 07-28-2018 Chronic Immunizations and screening for infectious disease (4 sources) Encounter for screening for other viral diseases; Translations: [Encounter for screening for respiratory tuberculosis] Onset: 12-22-2023 Episodic Inflammation; infection of eye (except that caused by tuberculosis or sexually transmitteddisease) (2 sources) Unspecified scleritis, bilateral; Translations: [Unspecified scleritis, bilateral] Onset: 01-07-2024 Episodic Mood disorders (20 sources) Moderate recurrent major depression; Translations: [Major depressive disorder, recurrent, moderate] Onset: 04-25-2021 Resolved: 02-05-2023 Chronic Nonspecific chest pain (2 sources) Other chest pain; Translations: [Other chest pain] Onset: 02-01-2024 Episodic Occlusion or stenosis of precerebral arteries (11 sources) Occlusion and stenosis of unspecified carotid artery; Translations: [Carotid artery occlusion] Onset: 06-22-2013 Resolved: 02-05-2023 02-05-2023 Chronic Open wounds of head; neck; and trunk (3 sources) Laceration without foreign body of scalp, initial encounter; Translations: [Open wound of abdomen] Onset: 12-30-2018 Episodic Other acquired deformities (1 source) Flexion deformity, right ankle and toes; Translations: [FLEXION DEFORMITY RT ANKLE AND TOES] Onset: 06-28-2021 Episodic Other connective tissue disease (4 sources) Pain in right foot; Translations: [PAIN IN RIGHT FOOT] Onset: 06-19-2021 Episodic Other connective tissue disease (2 sources) Diastasis recti; Translations: [Separation of muscle (nontraumatic), other site] Onset: 09-30-2018 09-30-2018 Episodic Other diseases of veins and lymphatics (2 sources) Venous insufficiency (chronic) (peripheral); Translations: [Venous insufficiency (chronic) (peripheral)] Onset: 08-26-2023 Episodic Other eye disorders (2 sources) Unspecified corneal ulcer, unspecified eye; Translations: [Unspecified corneal ulcer, unspecified eye] Onset: 01-07-2024 Episodic Pancreatic disorders (not diabetes) (1 source) Other specified diseases of pancreas; Translations: [OTHER SPECIFIED DISEASES PANCREAS] Onset: 04-25-2021 Episodic Phlebitis; thrombophlebitis and thromboembolism (20 sources) Deep venous thrombosis; Translations: [History of thromboembolism of vein] Onset: 10-05-2018 Resolved: 02-05-2023 07-28-2018 Episodic Pulmonary heart disease (2 sources) H/O: pulmonary embolus; Translations: [Personal history of pulmonary embolism] Onset: 10-05-2018 10-05-2018 Episodic Skin and subcutaneous tissue infections (6 sources) Cellulitis; Translations: [Cellulitis, unspecified] Onset: 11-30-2021 Episodic Spondylosis; intervertebral disc disorders; other back problems (3 sources) Pain in thoracic spine; Translations: [Spinal stenosis] Onset: 04-10-2014 09-30-2018 Episodic Unclassified (1 source) intermediate (current) use of antimetabolite agent; Translations: [intermediate designer (current) use of antimetabolite agent] Onset: 04-27-2024 Results Test Name Value Interpretation Reference Range Facility 07-08-2024 36 LM for patient in re gards to 07/12 appointment. Patients reflux study has not been completed. Patient need rescheduled. [facility] 36on 06-20-2024 36 See new message from 06/20/24 [facility] 36 [facility] 36on 06-17-2024 36 Emerita from [facility] notified. She states that they will reassess in two weeks. Phone no [phone] [facility] 36 Called patient - LVM to return call with any questions and to call [facility] to reschedule infusion. Carly will you [facility] back with Dr. Choudhary's response [facility] 36 Normal [facility] Telephoneon 06-17-2024 Telephone [id number] Matt Wolff 1960 M Date Provider Department Center 06/17/2024 CARLY MONTANO [facility] Family History Family history unknown: Yes [facility] Basophils Auto (Bld) [#/Vol] on 06-16-2024 Basophils (Bld) [#/Vol] Automated basophil count 0.0-0.1 [facility] Basophils/100 WBC Auto (Bld) on 06-16-2024 Basophils/100 WBC (Bld) Automated basophil % 0.2-2.0 [facility] Eosinophils/100 WBC Auto (Bl d)on 06-16-2024 Eosinophils/100 WBC (Bld) Automated eosinophil % 0.9-7.0 [facility] Erythrocyte distribution wid th Auto (RBC) [Ratio]on 06-16-2024 Erythrocyte distribution width (RBC) [Ratio] Erythrocyte distribution width [Ratio] by Automated count 11.0-15.0 [facility] Estimated glomerular filtrat ion rate (GFR) non- Americanon 06-16-2024 GFR/1.73 sq M.predicted among non-blacks MDRD (S/P/Bld) [Vol rate/Area] Estimated glomerular filtration rate (GFR) non- >=60 mL/min/1.73m 2 [facility] Globulin Calc (S) [Mass/Vol] on 06-16-2024 Globulin (S) [Mass/Vol] Serum globulin measurement by calculation (mass/volume) [facility] Hematocrit Auto (Bld) [Volum e fraction]on 06-16-2024 Hematocrit (Bld) [Volume fraction] Hematocrit [Volume Fraction] of Blood by Automated count Low 42.0-54.0 [facility] Hemoglobin [Mass/volume] in Bloodon 06-16-2024 Hemoglobin (Bld) [Mass/Vol] Hemoglobin [Mass/volume] in Blood Low 14.0-18.0 [facility] INR in Platelet poor plasma by Coagulation assayon 06-16-2024 INR Coag (PPP) [Relative time] INR in Platelet poor plasma by Coagulation assay [facility] Comment on above: DESIRED INR:2.0-3.0 CONDITIONS NOT LISTED BELOW2.5-3.5 FOR PROSTHETIC HEART VALVE REPLACEMENT2.5-3.5 RECURRENT THROMBOSIS Laboratory - Chemistry and C hemistry - challengeon 06-16-2024 Albumin [Mass/Vol] 3.1 g/dL Low 3.4-5.0 [facility] ALP [Catalytic activity/Vol] 75 U/L 46-116 [facility] ALT [Catalytic activity/Vol] 15 U/L Low 16-63 [facility] AST [Catalytic activity/Vol] 19 U/L 15-37 [facility] Bilirubin [Mass/Vol] 0.9 mg/dL 0.2-1.0 [facility] Calcium [Mass/Vol] 8.7 mg/dL 8.5-10.1 [facility] Chloride [Moles/Vol] 103 mmol/L 98-107 [facility] CO2 [Moles/Vol] 29.8 mmol/L 21.0-32.0 [facility] Creatinine [Mass/Vol] 0.94 mg/dL 0.70-1.30 [facility] GFR/1.73 sq M.predicted MDRD (S/P/Bld) [Vol rate/Area] mL/min/{1.73_m2} >=60 mL/min/1.73m 2 [facility] Glucose [Mass/Vol] 88 mg/dL 74-106 [facility] Potassium [Moles/Vol] 4.3 mmol/L 3.5-5.1 [facility] Protein [Mass/Vol] 7.2 g/dL 6.4-8.2 [facility] Sodium [Moles/Vol] 140 mmol/L 136-145 [facility] Urea nitrogen [Mass/Vol] 18.0 mg/dL 7.0-18.0 [facility] Urea nitrogen/Creatinine [Mass ratio] 19.1 mg/mg [facility] Laboratory - Hematology and Cell countson 06-16-2024 Immature granulocytes/100 WBC (Bld) 0.4 % 0.0-0.5 [facility] Leukocytes [#/volume] correc alicia for nucleated erythrocytes in Blood by Automated counon 06-16-2024 WBC corrected for nucl RBC Auto (Bld) [#/Vol] Leukocytes [#/volume] corrected for nucleated erythrocytes in Blood by Automated coun 4.0-11.0 [facility] Lymphocytes Auto (Bld) [#/Vo l]on 06-16-2024 Lymphocytes (Bld) [#/Vol] Lymphocytes [#/volume] in Blood by Automated count 1.2-3.8 [facility] Lymphocytes/100 WBC Auto (Bl d)on 06-16-2024 Lymphocytes/100 WBC (Bld) Lymphocytes/100 leukocytes in Blood by Automated count Low 20.5-60.0 [facility] MCH Auto (RBC) [Entitic mass ]on 06-16-2024 MCH (RBC) [Entitic mass] MCH [Entitic mass] by Automated count 25.9-34.0 [facility] MCHC Auto (RBC) [Mass/Vol]on 06-16-2024 MCHC (RBC) [Mass/Vol] MCHC [Mass/volume] by Automated count 29.9-35.2 [facility] MCV Auto (RBC) [Entitic vol] on 06-16-2024 MCV (RBC) [Entitic vol] MCV [Entitic volume] by Automated count High 80.0-94.0 [facility] Monocytes Auto (Bld) [#/Vol] on 06-16-2024 Monocytes (Bld) [#/Vol] Automated blood monocyte count High 0.3-0.8 [facility] Monocytes/100 WBC Auto (Bld) on 06-16-2024 Monocytes/100 WBC (Bld) Automated monocyte % High 1.7-12.0 [facility] Neutrophils Auto (Bld) [#/Vo l]on 06-16-2024 Neutrophils (Bld) [#/Vol] Neutrophils [#/volume] in Blood by Automated count 1.4-6.5 [facility] Neutrophils/100 WBC Auto (Bl d)on 06-16-2024 Neutrophils/100 WBC (Bld) Automated neutrophil % 43.0-75.0 [facility] No Panel Informationon 06-16 Eosinophils # (Auto) 0.2 10 3/uL 0.0-0.7 [facility] Immature Granulocyte # (Auto) 0.03 10 3/uL 0.00-0.03 [facility] Platelet mean volume Auto (B ld) [Entitic vol]on 06-16-2024 Platelet mean volume (Bld) [Entitic vol] Platelet mean volume [Entitic volume] in Blood by Automated count 9.5-13.5 [facility] Platelets Auto (Bld) [#/Vol] on 06-16-2024 Platelets (Bld) [#/Vol] Platelets [#/volume] in Blood by Automated count 150-450 [facility] Prothrombin time (PT)on PT Coag (PPP) [Time] Prothrombin time (PT) 9.0- 11.6 [facility] RBC Auto (Bld) [#/Vol]on RBC (Bld) [#/Vol] Erythrocytes [#/volu me] in Blood by Automated count Low 4.70-6.10 [facility] Serum or plasma albumin/glob ulin mass ratioon 06-16-2024 Albumin/Globulin [Mass ratio] Serum or plasma albumin/globulin mass ratio [facility] Serum or plasma anion gap de terminationon 06-16-2024 Anion gap [Moles/Vol] Serum or plasma an ion gap determination [facility] 36on 06-14-2024 36 Patient called for discharge call back, no answer, unable to leave message due to inbox full . Normal [facility] Documentationon 06-14-2024 Documentation Normal [facility] Telephoneon 06-14-2024 Telephone Normal [facility] 30on 06-13-2024 30 Normal [facility] 30 Normal [facility] DSon 06-13-2024 DS Normal [facility] Documentationon 06-13-2024 Documentation [id number] Matt Wolff 1960 M Date Provider Department Center 06/13/2024 [id number], [facility] Family History Family history unknown: Yes Normal [facility] POCT GLUCOSE METER UNSOLICIT ED RESULTSon 06-13-2024 Glucose [Mass/Vol] 128 mg/dL High 70-105 [facility] Comment on above: Order Comment: Waive d Testing in the ED is performed under the ED CLIA certificate #[id number]. Result Comment: [email or web address] Performed By: #### L [id number] ####[facility] ([facility] [facility] [address] Glucose [Mass/Vol] 141 mg/dL High 70-105 [facility] Comment on above: Order Comment: Waive d Testing in the ED is performed under the ED CLIA certificate #[id number]. Result Comment: [email or web address] Performed By: #### L [id number] ####[facility] ([facility] [facility] [address] 30on 06-12-2024 30 The patient is Moder ately Stable - Low risk of patient condition declining or worsening The patient's goals for the shift include comfort, rest The clinical goals for the shift include VSS, safety Normal [facility] 30 The patient is Moder ately Stable - Low risk of patient condition declining or worsening The patient's goals for the shift include comfort, rest The clinical goals for the shift include VSS Normal [facility] BASIC METABOLIC PANELon 02 Anion gap [Moles/Vol] 13 mmol/L Normal 7-20 [facility] Comment on above: Performed By: #### L [id number] ####[facility] (BEAKER)[address] [facility] [place] [address] Calcium [Mass/Vol] 8.3 mg/dL Low 8.6-10.3 [facility] Comment on above: Performed By: #### L [id number] ####[facility] ([employer])[address] [place] [address] Chloride [Moles/Vol] 99 mmol/L Normal 98-107 [facility] Comment on above: Performed By: #### L [id number] ####[facility] ([facility] [place] [address] CO2 [Moles/Vol] 29 mmol/L Normal 21-31 [facility] Comment on above: Performed By: #### L [id number] ####[facility] ([facility] [place] [address] Creatinine [Mass/Vol] 1.16 mg/dL Normal 0.70-1.30 [facility] Comment on above: Performed By: #### L [id number] ####[facility] ([facility])[address] [place] [address] GLOMERULAR FILTRATION RATE ML/MIN/1.73 SQ M.PREDICTED 71.2 mL/min/1.73m*2 Normal >60.0 [facility] Comment on above: Result Comment: [facility]???s estimated glomerular filtration rate (eGFR) will no [...] of individuals. Performed By: #### L [id number] ####[facility] ([facility])[address] [place] [address] Glucose [Mass/Vol] 100 mg/dL Normal 70-100 [facility] Comment on above: Performed By: #### L [id number] ####[facility] ([facility] [place] [address] Potassium [Moles/Vol] 3.7 mmol/L Normal 3.5-5.1 [facility] Comment on above: Performed By: #### L [id number] ####[facility] ([facility] [place] [address] Sodium [Moles/Vol] 137 mmol/L Normal 136-145 [facility] Comment on above: Performed By: #### L [id number] ####[facility] ([facility])[address] [place] [address] Urea nitrogen [Mass/Vol] 40 mg/dL High 7-25 [facility] Comment on above: Performed By: #### L [id number] ####[facility] ([facility])[address] [place] [address] UREA NITROGEN/CREATININE (MASS RATIO) IN SER/PLAS 34.5 Normal [facility] Comment on above: Performed By: #### L [id number] ####[facility] ([facility])[address] [place] [address] POCT GLUCOSE METER UNSOLICIT ED RESULTSon 06-12-2024 Glucose [Mass/Vol] 121 mg/dL High 70-105 [facility] Comment on above: Order Comment: Waive d Testing in the ED is performed under the ED CLIA certificate #[id number]. Result Comment: rony [email or web address] Performed By: #### L [id number] ####[facility] ([facility])[address] [place] [address] Glucose [Mass/Vol] 203 mg/dL High 70-105 [facility] Comment on above: Order Comment: Waive d Testing in the ED is performed under the ED CLIA certificate #[id number]. Result Comment: [email or web address] Performed By: #### L [id number] ####[facility] ([facility])[address] [place] [address] Glucose [Mass/Vol] 124 mg/dL High 70-105 [facility] Comment on above: Order Comment: Waive d Testing in the ED is performed under the ED CLIA certificate #[id number]. Result Comment: [email or web address] Performed By: #### L [id number] ####[facility] ([facility])[address] [place] [address] Glucose [Mass/Vol] 98 mg/dL Normal 70-105 [facility] Comment on above: Order Comment: Waive d Testing in the ED is performed under the ED CLIA certificate #[id number]. Result Comment: [email or web address] Performed By: #### L [id number] ####[facility] ([employer])[address] [place] [address] 30on 06-11-2024 30 Normal [facility] 30 The patient is Moder ately Stable - Low risk of patient condition declining or worsening The patient's goals for the shift include comfort, rest The clinical goals for the shift include VSS Normal [facility] POCT GLUCOSE METER UNSOLICIT ED RESULTSon 06-11-2024 Glucose [Mass/Vol] 105 mg/dL Normal 70-105 [facility] Comment on above: Order Comment: Waive d Testing in the ED is performed under the ED CLIA certificate #[id number]. Result Comment: rony [email or web address] Performed By: #### L [id number] ####[facility] ([employer])[address] [place] [address] Glucose [Mass/Vol] 158 mg/dL High 70-105 [facility] Comment on above: Order Comment: Waive d Testing in the ED is performed under the ED CLIA certificate #[id number]. Result Comment: [email or web address] Performed By: #### L [id number] ####[facility] ([employer])[address] [place] [address] Glucose [Mass/Vol] 118 mg/dL High 70-105 [facility] Comment on above: Order Comment: Waive d Testing in the ED is performed under the ED CLIA certificate #[id number]. Result Comment: [email or web address] Performed By: #### L [id number] ####[facility] ([employer])[address] [place] [address] Glucose [Mass/Vol] 129 mg/dL High 70-105 [facility] Comment on above: Order Comment: Waive d Testing in the ED is performed under the ED CLIA certificate #[id number]. Result Comment: [email or web address] Performed By: #### L [id number] ####[facility] ([facility])[address] [place] [address] 30on 06-10-2024 30 Normal [facility] 30 Normal [facility] BASIC METABOLIC PANELon 05-13 Anion gap [Moles/Vol] 11 mmol/L Normal 7-20 [facility] Comment on above: Performed By: #### L [id number] ####[facility] ([facility])[address] [place] [address] Calcium [Mass/Vol] 8.6 mg/dL Normal 8.6-10.3 [facility] Comment on above: Performed By: #### L [id number] ####[facility] ([facility])[address] [place] [address] Chloride [Moles/Vol] 101 mmol/L Normal 98-107 [facility] Comment on above: Performed By: #### L [id number] ####[facility] ([facility])[address] [place] [address] CO2 [Moles/Vol] 30 mmol/L Normal 21-31 [facility] Comment on above: Performed By: #### L [id number] ####[facility] ([facility])[address] [place] [address] Creatinine [Mass/Vol] 1.02 mg/dL Normal 0.70-1.30 [facility] Comment on above: Performed By: #### L [id number] ####[facility] ([facility])[address] [place] [address] GLOMERULAR FILTRATION RATE ML/MIN/1.73 SQ M.PREDICTED 83.1 mL/min/1.73m*2 Normal >60.0 [facility] Comment on above: Result Comment: [facility]???s estimated glomerular filtration rate (eGFR) will no [...] of individuals. Performed By: #### L [id number] ####[facility] ([facility])[address] [place] [address] Glucose [Mass/Vol] 105 mg/dL High 70-100 [facility] Comment on above: Performed By: #### L [id number] ####[facility] ([facility])[address] [place] [address] Potassium [Moles/Vol] 3.8 mmol/L Normal 3.5-5.1 [facility] Comment on above: Performed By: #### L [id number] ####[facility] ([facility])[address] [place] [address] Sodium [Moles/Vol] 138 mmol/L Normal 136-145 [facility] Comment on above: Performed By: #### L [id number] ####[facility] ([facility])[address] [place] [address] Urea nitrogen [Mass/Vol] 33 mg/dL High 7-25 [facility] Comment on above: Performed By: #### L [id number] ####[facility] ([facility])[address] [place] [address] UREA NITROGEN/CREATININE (MASS RATIO) IN SER/PLAS 32.4 [facility] Comment on above: Performed By: #### L [id number] ####[facility] ([facility])[address] [place] [address] CONSULTon 06-10-2024 CONSULT Normal [facility] POCT GLUCOSE METER UNSOLICIT ED RESULTSon 06-10-2024 Glucose [Mass/Vol] 200 mg/dL High 70-105 [facility] Comment on above: Order Comment: Waive d Testing in the ED is performed under the ED CLIA certificate #[id number]. Result Comment: [email or web address] Performed By: #### L [id number] ####[facility] ([facility])[address] [place] [address] Glucose [Mass/Vol] 167 mg/dL High 70-105 [facility] Comment on above: Order Comment: Waive d Testing in the ED is performed under the ED CLIA certificate #[id number]. Result Comment: [email or web address] Performed By: #### L [id number] ####[facility] ([facility])[address] [place] [address] Glucose [Mass/Vol] 116 mg/dL High 70-105 [facility] Comment on above: Order Comment: Waive d Testing in the ED is performed under the ED CLIA certificate #[id number]. Result Comment: [email or web address] Performed By: #### L [id number] ####[facility] ([employer])[address] [place] [address] Glucose [Mass/Vol] 125 mg/dL High 70-105 [facility] Comment on above: Order Comment: Waive d Testing in the ED is performed under the ED CLIA certificate #[id number]. Result Comment: [email or web address] Performed By: #### L [id number] ####[facility] ([facility])[address] [place] [address] VITAMIN D 1,25 DIHYDROXYon 0 06-10-2024 VITAMIN D 1,25-DIHYDROXY 19.5 pg/mL Low 19.9-79.3 [facility] Comment on above: Result Comment: INTE RPRETIVE INFORMATION: Vitamin D, 1,25-DihydroxyThis test is primarily indicated during patient evaluation forhypercalcemia and renal failure. A normal result does not rule outVitamin D deficiency. The recommended test for diagnosing VitaminD deficiency is Vitamin D 25-hydroxy.Performed By: [email or web address] [place], [place] [email or web address] Director: Kamaljit Bennett MD, PhDCLIA Number: [id number] Performed By: #### L [id number] ####[facility] [place] [address] 30on 06-09-2024 30 Normal [facility] 30 Normal [facility] 30 Normal [facility] BASIC METABOLIC PANELon 01-3 Anion gap [Moles/Vol] 12 mmol/L Normal 7-20 [facility] Comment on above: Performed By: #### L [id number] ####[facility] ([facility])[address] [place] [address] Calcium [Mass/Vol] 9.6 mg/dL Normal 8.6-10.3 [facility] Comment on above: Performed By: #### L [id number] ####[facility] ([facility])[address] [place] [address] Chloride [Moles/Vol] 97 mmol/L Low 98-107 [facility] Comment on above: Performed By: #### L [id number] ####[facility] ([facility]ER)[address] [place] [address] CO2 [Moles/Vol] 33 mmol/L High 21-31 [facility] Comment on above: Performed By: #### L [id number] ####[facility] ([facility])[address] [place] [address] Creatinine [Mass/Vol] 1.11 mg/dL Normal 0.70-1.30 [facility] Comment on above: Performed By: #### L [id number] ####[facility] ([facility])[address] [place] [address] GLOMERULAR FILTRATION RATE ML/MIN/1.73 SQ M.PREDICTED 75.1 mL/min/1.73m*2 Normal >60.0 [facility] Comment on above: Result Comment: [facility]???s estimated glomerular filtration rate (eGFR) will no [...] of individuals. Performed By: #### L [id number] ####[facility] ([facility])[address] [place] [address] Glucose [Mass/Vol] 110 mg/dL High 70-100 [facility] Comment on above: Performed By: #### L [id number] ####[facility] ([facility])[address] [place] [address] Potassium [Moles/Vol] 4.2 mmol/L Normal 3.5-5.1 [facility] Comment on above: Performed By: #### L [id number] ####[facility] ([facility])[address] [place] [address] Sodium [Moles/Vol] 138 mmol/L Normal 136-145 [facility] Comment on above: Performed By: #### L [id number] ####[facility] ([facility])[address] [place] [address] Urea nitrogen [Mass/Vol] 29 mg/dL High 7-25 [facility] Comment on above: Performed By: #### L [id number] ####[facility] ([facility])[address] [place] [address] UREA NITROGEN/CREATININE (MASS RATIO) IN SER/PLAS 26.1 Normal [facility] Comment on above: Performed By: #### L [id number] ####[facility] ([facility])[address] [place] [address] Anion gap [Moles/Vol] 10 mmol/L Normal 7-20 [facility] Comment on above: Performed By: #### L [id number] ####[facility] ([facility])[address] [place] [address] Calcium [Mass/Vol] 9.1 mg/dL Normal 8.6-10.3 [facility] Comment on above: Performed By: #### L [id number] ####[facility] ([facility])[address] [place] [address] Chloride [Moles/Vol] 99 mmol/L Normal 98-107 [facility] Comment on above: Performed By: #### L [id number] ####[facility] ([facility])[address] [place] [address] CO2 [Moles/Vol] 33 mmol/L High 21-31 [facility] Comment on above: Performed By: #### L [id number] ####[facility] ([facility])[address] [place] [address] Creatinine [Mass/Vol] 1.10 mg/dL Normal 0.70-1.30 [facility] Comment on above: Performed By: #### L [id number] ####[facility] ([facility])[address] [place] [address] GLOMERULAR FILTRATION RATE ML/MIN/1.73 SQ M.PREDICTED 75.9 mL/min/1.73m*2 Normal >60.0 [facility] Comment on above: Result Comment: [facility]???s estimated glomerular filtration rate (eGFR) will no [...] of individuals. Performed By: #### L [id number] ####[facility] ([facility] [place] [address] Glucose [Mass/Vol] 94 mg/dL Normal 70-100 [facility] Comment on above: Performed By: #### L [id number] ####[facility] ([facility] [place] [address] Potassium [Moles/Vol] 4.1 mmol/L Normal 3.5-5.1 [facility] Comment on above: Performed By: #### L [id number] ####[facility] ([facility] [place] [address] Sodium [Moles/Vol] 138 mmol/L Normal 136-145 [facility] Comment on above: Performed By: #### L [id number] ####[facility] ([facility])[address] [address] Urea nitrogen [Mass/Vol] 30 mg/dL High 7-25 [facility] Comment on above: Performed By: #### L [id number] ####[facility] ([facility])[address] [place] [address] UREA NITROGEN/CREATININE (MASS RATIO) IN SER/PLAS 27.3 Normal [facility] Comment on above: Performed By: #### L [id number] ####[facility] ([facility])[address] [place] [address] CONSULTon 06-09-2024 CONSULT Normal [facility] HEMOGLOBIN AND HEMATOCRIT, B LOODon 06-09-2024 Hematocrit (Bld) [Volume fraction] 36.4 % Low 39.0-55.0 [facility] Comment on above: Performed By: #### L [id number] ####[facility] ([facility])[address] [place] [address] Hemoglobin (Bld) [Mass/Vol] 11.4 g/dL Low 13.0-17.0 [facility] Comment on above: Performed By: #### L [id number] ####[facility] ([facility])[address] [place] [address] MAGNESIUMon 06-09-2024 Magnesium [Mass/Vol] 2.3 mg/dL Normal 1.9-2.7 [facility] Comment on above: Performed By: #### L [id number] ####[facility] ([facility])[address] [place] [address] Magnesium [Mass/Vol] 2.3 mg/dL Normal 1.9-2.7 [facility] Comment on above: Performed By: #### L [id number] ####[facility] ([facility] [place] [address] POCT GLUCOSE METER UNSOLICIT ED RESULTSon 06-09-2024 Glucose [Mass/Vol] 106 mg/dL High 70-105 [facility] Comment on above: Order Comment: Waive d Testing in the ED is performed under the ED CLIA certificate #[id number]. Result Comment: [email or web address] Performed By: #### L [id number] ####[facility] ([employer])[address] [place] [address] Glucose [Mass/Vol] 132 mg/dL High 70-105 [facility] Comment on above: Order Comment: Waive d Testing in the ED is performed under the ED CLIA certificate #[id number]. Result Comment: [email or web address] Performed By: #### L [id number] ####[facility] ([employer])[address] [place] [address] Glucose [Mass/Vol] 178 mg/dL High 70-105 [facility] Comment on above: Order Comment: Waive d Testing in the ED is performed under the ED CLIA certificate #[id number]. Result Comment: [email or web address] Performed By: #### L [id number] ####[facility] ([employer])[address] [place] [address] Glucose [Mass/Vol] 113 mg/dL High 70-105 [facility] Comment on above: Order Comment: Waive d Testing in the ED is performed under the ED CLIA certificate #[id number]. Result Comment: [email or web address] Performed By: #### L [id number] ####[facility] ([employer])[address] [place] [address] VITAMIN B12on 06-09-2024 Cobalamin (Vitamin B12) [Mass/Vol] 344 pg/mL Normal 180-914 [facility] Comment on above: Result Comment: REFE RENCE RANGES:180-914 pg/mL Tokfnx251-601 pg/mL Indeterminate<145 pg/mL Deficient Performed By: #### L [id number] ####[facility] ([employer])[address] [place] [address] 30on 06-08-2024 30 Normal [facility] 30 Normal [facility] 30 Normal [facility] B-TYPE NATRIURETIC PEPTIDEon 06-08-2024 Natriuretic peptide B (Bld) [Mass/Vol] 22 pg/mL Normal 0-100 [facility] Comment on above: Performed By: #### L [id number] ####[facility] (BEAKER)[address] [place] [address] BASIC METABOLIC PANELon 05-12 Anion gap [Moles/Vol] 12 mmol/L Normal 7-20 [facility] Comment on above: Performed By: #### L [id number] ####[facility] ([facility] [place] [address] Calcium [Mass/Vol] 8.8 mg/dL Normal 8.6-10.3 [facility] Comment on above: Performed By: #### L [id number] ####[facility] ([facility])[address] [place] [address] Chloride [Moles/Vol] 100 mmol/L Normal 98-107 [facility] Comment on above: Performed By: #### L [id number] ####[facility] ([facility])[address] [place] [address] CO2 [Moles/Vol] 28 mmol/L Normal 21-31 [facility] Comment on above: Performed By: #### L [id number] ####[facility] ([facility])[address] [place] [address] Creatinine [Mass/Vol] 1.20 mg/dL Normal 0.70-1.30 [facility] Comment on above: Performed By: #### L [id number] ####[facility] ([facility])[address] [place] [address] GLOMERULAR FILTRATION RATE ML/MIN/1.73 SQ M.PREDICTED 68.4 mL/min/1.73m*2 Normal >60.0 [facility] Comment on above: Result Comment: [facility]???s estimated glomerular filtration rate (eGFR) will no [...] of individuals. Performed By: #### L [id number] ####[facility] ([facility]ER)[address] [place] [address] Glucose [Mass/Vol] 140 mg/dL High 70-100 [facility] Comment on above: Performed By: #### L [id number] ####[facility] ([facility]ER)[address] [place] [address] Potassium [Moles/Vol] 4.4 mmol/L Normal 3.5-5.1 [facility] Comment on above: Performed By: #### L [id number] ####[facility] ([facility]ER)[address] [place] [address] Sodium [Moles/Vol] 136 mmol/L Normal 136-145 [facility] Comment on above: Performed By: #### L [id number] ####[facility] (BEAKER)[address] [place] [address] Urea nitrogen [Mass/Vol] 27 mg/dL High 7-25 [facility] Comment on above: Performed By: #### L [id number] ####[facility] ([facility]ER)[address] [place] [address] UREA NITROGEN/CREATININE (MASS RATIO) IN SER/PLAS 22.5 Normal [facility] Comment on above: Performed By: #### L [id number] ####[facility] (BEAKER)[address] [place] [address] Anion gap [Moles/Vol] 11 mmol/L Normal 7-20 [facility] Comment on above: Performed By: #### L [id number] ####[facility] (BEAKER)[address] [place] [address] Calcium [Mass/Vol] 8.9 mg/dL Normal 8.6-10.3 [facility] Comment on above: Performed By: #### L [id number] ####[facility] (BEAKER)[address] [place] [address] Chloride [Moles/Vol] 99 mmol/L Normal 98-107 [facility] Comment on above: Performed By: #### L [id number] ####[facility] (BEAKER)[address] [place] [address] CO2 [Moles/Vol] 33 mmol/L High 21-31 [facility] Comment on above: Performed By: #### L [id number] ####[facility] (BEAKER)[address] [place] [address] Creatinine [Mass/Vol] 1.14 mg/dL Normal 0.70-1.30 [facility] Comment on above: Performed By: #### L [id number] ####[facility] (AKER)[address] [place] [address] GLOMERULAR FILTRATION RATE ML/MIN/1.73 SQ M.PREDICTED 72.7 mL/min/1.73m*2 Normal >60.0 [facility] Comment on above: Result Comment: [facility]???s estimated glomerular filtration rate (eGFR) will no [...] of individuals. Performed By: #### L [id number] ####[facility] (BEAKER)[address] [place] [address] Glucose [Mass/Vol] 147 mg/dL High 70-100 [facility] Comment on above: Performed By: #### L [id number] ####[facility] ([facility] [place] [address] Potassium [Moles/Vol] 4.0 mmol/L Normal 3.5-5.1 [facility] Comment on above: Performed By: #### L [id number] ####[facility] ([facility] [place] [address] Sodium [Moles/Vol] 139 mmol/L Normal 136-145 [facility] Comment on above: Performed By: #### L [id number] ####[facility] ([facility])[address] [place] [address] Urea nitrogen [Mass/Vol] 26 mg/dL High 7-25 [facility] Comment on above: Performed By: #### L [id number] ####[facility] ([facility])[address] [place] [address] UREA NITROGEN/CREATININE (MASS RATIO) IN SER/PLAS 22.8 Normal [facility] Comment on above: Performed By: #### L [id number] ####[facility] ([facility] [place] [address] Anion gap [Moles/Vol] 11 mmol/L Normal 7-20 [facility] Comment on above: Performed By: #### L [id number] ####[facility] ([facility] [place] [address] Calcium [Mass/Vol] 8.6 mg/dL Normal 8.6-10.3 [facility] Comment on above: Performed By: #### L [id number] ####[facility] (BEAKER)[address] [place] [address] Chloride [Moles/Vol] 101 mmol/L Normal 98-107 [facility] Comment on above: Performed By: #### L [id number] ####[facility] (BEAKER)[address] [place] [address] CO2 [Moles/Vol] 30 mmol/L Normal 21-31 [facility] Comment on above: Performed By: #### L [id number] ####[facility] ([facility])[address] [place] [address] Creatinine [Mass/Vol] 1.29 mg/dL Normal 0.70-1.30 [facility] Comment on above: Performed By: #### L [id number] ####[facility] ([facility])[address] [place] [address] GLOMERULAR FILTRATION RATE ML/MIN/1.73 SQ M.PREDICTED 62.7 mL/min/1.73m*2 Normal >60.0 [facility] Comment on above: Result Comment: [facility]???s estimated glomerular filtration rate (eGFR) will no [...] of individuals. Performed By: #### L [id number] ####[facility] ([facility])[address] [place] [address] Glucose [Mass/Vol] 88 mg/dL Normal 70-100 [facility] Comment on above: Performed By: #### L [id number] ####[facility] ([facility])[address] [facility] [address] Potassium [Moles/Vol] 4.2 mmol/L Normal 3.5-5.1 [facility] Comment on above: Performed By: #### L [id number] ####[facility] ([facility])[address] [facility] [place] [address] Sodium [Moles/Vol] 138 mmol/L Normal 136-145 [facility] Comment on above: Performed By: #### L [id number] ####[facility] (BEAKER)[address] [place] [address] Urea nitrogen [Mass/Vol] 32 mg/dL High 7-25 [facility] Comment on above: Performed By: #### L [id number] ####[facility] (BEAKER)[address] [place] [address] UREA NITROGEN/CREATININE (MASS RATIO) IN SER/PLAS 24.8 Normal [facility] Comment on above: Performed By: #### L [id number] ####[facility] (BEAKER)[address] [place] [address] Anion gap [Moles/Vol] 11 mmol/L Normal 7-20 [facility] Comment on above: Performed By: #### L [id number] ####[facility] (BEAKER)[address] [place] [address] Calcium [Mass/Vol] 8.6 mg/dL Normal 8.6-10.3 [facility] Comment on above: Performed By: #### L [id number] ####[facility] (BEAKER)[address] [place] [address] CO2 [Moles/Vol] 31 mmol/L Normal 21-31 [facility] Comment on above: Performed By: #### L [id number] ####[facility] (BEAKER)[address] [place] [address] Creatinine [Mass/Vol] 1.34 mg/dL High 0.70-1.30 [facility] Comment on above: Performed By: #### L [id number] ####[facility] (BEAKER)[address] [place] [address] GLOMERULAR FILTRATION RATE ML/MIN/1.73 SQ M.PREDICTED 59.9 mL/min/1.73m*2 Low >60.0 [facility] Comment on above: Result Comment: [facility]???s estimated glomerular filtration rate (eGFR) will no [...] of individuals. Performed By: #### L [id number] ####[facility] ([facility] [place] [address] Glucose [Mass/Vol] 120 mg/dL High 70-100 [facility] Comment on above: Performed By: #### L [id number] ####[facility] ([facility])[address] [place] [address] Urea nitrogen [Mass/Vol] 28 mg/dL High 7-25 [facility] Comment on above: Performed By: #### L [id number] ####[facility] ([facility])[address] [facility] [place] [address] UREA NITROGEN/CREATININE (MASS RATIO) IN SER/PLAS 20.9 [facility] Comment on above: Performed By: #### L [id number] ####[facility] ([facility])[address] [place] [address] CONSULTon 06-08-2024 CONSULT [facility] MAGNESIUMon 06-08-2024 Magnesium [Mass/Vol] 2.2 mg/dL Normal 1.9-2.7 [facility] Comment on above: Performed By: #### L [id number] ####[facility] ([facility])[address] [facility] [place] [place] [address] Magnesium [Mass/Vol] 2.2 mg/dL Normal 1.9-2.7 [facility] Comment on above: Performed By: #### L [id number] ####[facility] ([facility] [place] [address] Magnesium [Mass/Vol] 2.2 mg/dL Normal 1.9-2.7 [facility] Comment on above: Performed By: #### L [id number] ####[facility] ([facility])[address] [place] [address] POCT GLUCOSE METER UNSOLICIT ED RESULTSon 06-08-2024 Glucose [Mass/Vol] 234 mg/dL High 70-105 [facility] Comment on above: Order Comment: Waive d Testing in the ED is performed under the ED CLIA certificate #[id number]. Result Comment: wcha se Performed By: #### L [id number] ####[facility] ([facility])[address] [facility] [place] [address] SODIUM, URINE, RANDOMon 05-12 Sodium (U) [Moles/Vol] 36 mmol/L Normal [facility] Comment on above: Performed By: #### L [id number] ####[facility] ([facility])[address] [place] [address] UREA NITROGEN, URINEon 06-08 Urea nitrogen (U) [Mass/Vol] 516 mg/dL Normal [facility] Comment on above: Performed By: #### L [id number] ####[facility] ([facility] [place] [address] 30on 06-07-2024 30 Normal [facility] 30 The patient is Moder ately Stable - Low risk of patient condition declining or worsening The patient's goals for the shift include rest, comfort The clinical goals for the shift include vss, safety, diuresis [facility] 36on 06-07-2024 36 Pt spouse states joana Pat has been admitted to [facility] yesterday - heart failure- He states you wanted to be notified [facility] BASIC METABOLIC PANELon 05-12 Anion gap [Moles/Vol] 13 mmol/L Normal 7-20 [facility] Comment on above: Performed By: #### L [id number] ####[facility] ([facility] [place] [address] Calcium [Mass/Vol] 8.9 mg/dL Normal 8.6-10.3 [facility] Comment on above: Performed By: #### L [id number] ####[facility] ([facility] [place] [address] Chloride [Moles/Vol] 101 mmol/L Normal 98-107 [facility] Comment on above: Performed By: #### L [id number] ####[facility] ([facility])[address] [place] [address] CO2 [Moles/Vol] 28 mmol/L Normal 21-31 [facility] Comment on above: Performed By: #### L [id number] ####[facility] ([facility])[address] [place] [address] Creatinine [Mass/Vol] 1.14 mg/dL Normal 0.70-1.30 [facility] Comment on above: Performed By: #### L [id number] ####[facility] ([facility])[address] [place] [address] GLOMERULAR FILTRATION RATE ML/MIN/1.73 SQ M.PREDICTED 72.7 mL/min/1.73m*2 Normal >60.0 [facility] Comment on above: Result Comment: [facility]???s estimated glomerular filtration rate (eGFR) will no [...] of individuals. Performed By: #### L [id number] ####[facility] ([facility] [place] [address] Glucose [Mass/Vol] 223 mg/dL High 70-100 [facility] Comment on above: Performed By: #### L [id number] ####[facility] ([facility])[address] [place] [address] Potassium [Moles/Vol] 4.2 mmol/L Normal 3.5-5.1 [facility] Comment on above: Performed By: #### L [id number] ####[facility] ([facility])[address] [place] [address] Sodium [Moles/Vol] 138 mmol/L Normal 136-145 [facility] Comment on above: Performed By: #### L [id number] ####[facility] (BEAKER)[address] [place] [address] Urea nitrogen [Mass/Vol] 25 mg/dL Normal 7-25 [facility] Comment on above: Performed By: #### L [id number] ####[facility] ([facility]AKER)[address] [place] [address] UREA NITROGEN/CREATININE (MASS RATIO) IN SER/PLAS 21.9 Normal [facility] Comment on above: Performed By: #### L [id number] ####[facility] (BEAKER)[address] [place] [address] Anion gap [Moles/Vol] 10 mmol/L Normal 7-20 [facility] Comment on above: Performed By: #### L [id number] ####[facility] (BEAKER)[address] [place] [address] Calcium [Mass/Vol] 9.0 mg/dL Normal 8.6-10.3 [facility] Comment on above: Performed By: #### L [id number] ####[facility] ([facility])[address] [place] [address] CO2 [Moles/Vol] 32 mmol/L High 21-31 [facility] Comment on above: Performed By: #### L [id number] ####[facility] ([facility])[address] [place] [address] Creatinine [Mass/Vol] 0.93 mg/dL Normal 0.70-1.30 [facility] Comment on above: Performed By: #### L [id number] ####[facility] ([facility])[address] [place] [address] GLOMERULAR FILTRATION RATE ML/MIN/1.73 SQ M.PREDICTED 92.8 mL/min/1.73m*2 Normal >60.0 [facility] Comment on above: Result Comment: [facility]???s estimated glomerular filtration rate (eGFR) will no [...] of individuals. Performed By: #### L [id number] ####[facility] ([facility])[address] [place] [address] Glucose [Mass/Vol] 125 mg/dL High 70-100 [facility] Comment on above: Performed By: #### L [id number] ####[facility] ([facility])[address] [facility] [place] [address] Potassium [Moles/Vol] 4.1 mmol/L Normal 3.5-5.1 [facility] Comment on above: Performed By: #### L [id number] ####[facility] ([facility])[address] [place] [address] Sodium [Moles/Vol] 139 mmol/L Normal 136-145 [facility] Comment on above: Performed By: #### L [id number] ####[facility] ([facility])[address] [facility] [place] [address] Urea nitrogen [Mass/Vol] 24 mg/dL Normal 7-25 [facility] Comment on above: Performed By: #### L [id number] ####[facility] ([facility])[address] [place] [address] UREA NITROGEN/CREATININE (MASS RATIO) IN SER/PLAS 25.8 Normal [facility] Comment on above: Performed By: #### L [id number] ####[facility] ([facility])[address] [place] [address] Anion gap [Moles/Vol] 12 mmol/L Normal 7-20 [facility] Comment on above: Performed By: #### L [id number] ####[facility] ([facility] [place] [address] Calcium [Mass/Vol] 9.0 mg/dL Normal 8.6-10.3 [facility] Comment on above: Performed By: #### L [id number] ####[facility] ([facility] [place] [address] Chloride [Moles/Vol] 102 mmol/L Normal 98-107 [facility] Comment on above: Performed By: #### L [id number] ####[facility] ([facility] [place] [address] CO2 [Moles/Vol] 30 mmol/L Normal 21-31 [facility] Comment on above: Performed By: #### L [id number] ####[facility] ([facility] [place] [address] Creatinine [Mass/Vol] 0.97 mg/dL Normal 0.70-1.30 [facility] Comment on above: Performed By: #### L [id number] ####[facility] ([facility])[address] [place] [address] GLOMERULAR FILTRATION RATE ML/MIN/1.73 SQ M.PREDICTED 88.3 mL/min/1.73m*2 Normal >60.0 [facility] Comment on above: Result Comment: [facility]???s estimated glomerular filtration rate (eGFR) will no [...] of individuals. Performed By: #### L [id number] ####[facility] (BEAKER)[address] [place] [address] Glucose [Mass/Vol] 143 mg/dL High 70-100 [facility] Comment on above: Performed By: #### L [id number] ####[facility] (BEAKER)[address] [place] [address] Potassium [Moles/Vol] 3.8 mmol/L Normal 3.5-5.1 [facility] Comment on above: Performed By: #### L [id number] ####[facility] (BEAKER)[address] [place] [address] Sodium [Moles/Vol] 140 mmol/L Normal 136-145 [facility] Comment on above: Performed By: #### L [id number] ####[facility] (BEAKER)[address] [place] [address] Urea nitrogen [Mass/Vol] 24 mg/dL Normal 7-25 [facility] Comment on above: Performed By: #### L [id number] ####[facility] (BEAKER)[address] [place] [address] UREA NITROGEN/CREATININE (MASS RATIO) IN SER/PLAS 24.7 Normal [facility] Comment on above: Performed By: #### L [id number] ####[facility] (BEAKER)[address] [place] [address] Anion gap [Moles/Vol] 11 mmol/L Normal 7-20 [facility] Comment on above: Performed By: #### L [id number] ####[facility] (BEAKER)[address] [place] [address] Calcium [Mass/Vol] 9.0 mg/dL Normal 8.6-10.3 [facility] Comment on above: Performed By: #### L [id number] ####[facility] (BEAKER)[address] [place] [address] Chloride [Moles/Vol] 102 mmol/L Normal 98-107 [facility] Comment on above: Performed By: #### L [id number] ####[facility] (BEAKER)[address] [place] [address] CO2 [Moles/Vol] 29 mmol/L Normal 21-31 [facility] Comment on above: Performed By: #### L [id number] ####[facility] (BEAKER)[address] [place] [address] Creatinine [Mass/Vol] 0.83 mg/dL Normal 0.70-1.30 [facility] Comment on above: Performed By: #### L [id number] ####[facility] ([facility])[address] [place] [address] GLOMERULAR FILTRATION RATE ML/MIN/1.73 SQ M.PREDICTED 99.0 mL/min/1.73m*2 Normal >60.0 [facility] Comment on above: Result Comment: [facility]???s estimated glomerular filtration rate (eGFR) will no [...] of individuals. Performed By: #### L [id number] ####[facility] (BEAKER)[address] [place] [address] Glucose [Mass/Vol] 132 mg/dL High 70-100 [facility] Comment on above: Performed By: #### L [id number] ####[facility] (BEAKER)[address] [place] [address] Potassium [Moles/Vol] 3.8 mmol/L Normal 3.5-5.1 [facility] Comment on above: Performed By: #### L [id number] ####[facility] (BEAKER)[address] [place] [address] Sodium [Moles/Vol] 138 mmol/L Normal 136-145 [facility] Comment on above: Performed By: #### L [id number] ####[facility] ([facility])[address] [place] [address] Urea nitrogen [Mass/Vol] 23 mg/dL Normal 7-25 [facility] Comment on above: Performed By: #### L [id number] ####[facility] ([facility])[address] [place] [address] UREA NITROGEN/CREATININE (MASS RATIO) IN SER/PLAS 27.7 Normal [facility] Comment on above: Performed By: #### L [id number] ####[facility] ([facility])[address] [place] [address] CBC WITH AUTO DIFFERENTIALon 06-07-2024 Basophils (Bld) [#/Vol] 0.05 10*3/uL Normal 0.00-0.20 [facility] Comment on above: Performed By: #### L [id number] ####[facility] ([facility])[address] [place] [address] Basophils/100 WBC (Bld) 0.9 % Normal 0.0-1.0 [facility] Comment on above: Performed By: #### L [id number] ####[facility] ([facility])[address] [place] [address] Eosinophils (Bld) [#/Vol] 0.18 10*3/uL Normal 0.00-0.50 [facility] Comment on above: Performed By: #### L [id number] ####[facility] ([facility])[address] [place] [address] Eosinophils/100 WBC (Bld) 3.2 % Normal 0.0-6.0 [facility] Comment on above: Performed By: #### L [id number] ####[facility] ([facility])[address] [place] [address] Erythrocyte distribution width (RBC) [Ratio] 16.5 % High 11.5-15.0 [facility] Comment on above: Performed By: #### L [id number] ####[facility] (BEAKER)[address] [place] [address] ERYTHROCYTE MEAN CORPUSCULAR HEMOGLOBIN CONCENTRATION (G/DL) BY AUTOMATED 30.9 g/dL Low 32.0-35.0 [facility] Comment on above: Performed By: #### L [id number] ####[facility] ([facility] [place] [address] Hematocrit (Bld) [Volume fraction] 34.0 % Low 39.0-55.0 [facility] Comment on above: Performed By: #### L [id number] ####[facility] ([facility] [place] [address] Hemoglobin (Bld) [Mass/Vol] 10.5 g/dL Low 13.0-17.0 [facility] Comment on above: Performed By: #### L [id number] ####[facility] (BEAKER)[address] [place] [address] Immature granulocytes (Bld) [#/Vol] 0.03 10*3/uL Normal 0.00-0.20 [facility] Comment on above: Performed By: #### L [id number] ####[facility] (BEAKER)[address] [place] [address] Immature granulocytes/100 WBC (Bld) 0.5 % Normal 0.0-1.0 [facility] Comment on above: Performed By: #### L [id number] ####[facility] (BEAKER)[address] [place] [address] Lymphocytes (Bld) [#/Vol] 1.97 10*3/uL Normal 1.20-4.00 [facility] Comment on above: Performed By: #### L [id number] ####[facility] (BEAKER)[address] [place] [address] Lymphocytes/100 WBC (Bld) 35.1 % Normal 20.0-45.0 [facility] Comment on above: Performed By: #### L [id number] ####[facility] (BEAKER)[address] [place] [address] MCH (RBC) [Entitic mass] 29.9 pg Normal 27.0-33.0 [facility] Comment on above: Performed By: #### L [id number] ####[facility] (BEAKER)[address] [place] [address] MCV (RBC) [Entitic vol] 96.9 fL Normal 82.0-98.0 [facility] Comment on above: Performed By: #### L [id number] ####[facility] (BEAKER)[address] [place] [address] Monocytes (Bld) [#/Vol] 0.67 10*3/uL Normal 0.10-1.00 [facility] Comment on above: Performed By: #### L [id number] ####[facility] (BEAKER)[address] [place] [address] Monocytes/100 WBC (Bld) 11.9 % Normal 5.0-12.0 [facility] Comment on above: Performed By: #### L [id number] ####[facility] (BEAKER)[address] [place] [address] Neutrophils (Bld) [#/Vol] 2.72 10*3/uL Normal 1.60-7.60 [facility] Comment on above: Performed By: #### L [id number] ####[facility] (BEAKER)[address] [place] [address] Neutrophils/100 WBC (Bld) 48.4 % Normal 40.0-72.0 [facility] Comment on above: Performed By: #### L [id number] ####[facility] (BEAKER)[address] [place] [address] NRBC (PER 100 WBCS) BY AUTOMATED COUNT 0.0 % Normal 0 [facility] Comment on above: Performed By: #### L [id number] ####[facility] (BEAKER)[address] [place] [address] PLATELETS (10*3/UL) IN BLOOD AUTOMATED COUNT 291 10*3/uL Normal 150-400 [facility] Comment on above: Performed By: #### L [id number] ####[facility] ([facility])[address] [place] [address] RBC (Bld) [#/Vol] 3.51 10*6/uL Low 4.20-5.70 [facility] Comment on above: Performed By: #### L [id number] ####[facility] ([facility])[address] [place] [address] WBC (Bld) [#/Vol] 5.62 10*3/uL Normal 4.00-10.60 [facility] Comment on above: Performed By: #### L [id number] ####[facility] ([facility])[address] [place] [address] CONSULTon 06-07-2024 CONSULT Normal [facility] CONSULT Normal [facility] CONSULT Normal [facility] MAGNESIUMon 06-07-2024 Magnesium [Mass/Vol] 2.1 mg/dL Normal 1.9-2.7 [facility] Comment on above: Performed By: #### L [id number] ####[facility] ([facility])[address] [place] [address] Magnesium [Mass/Vol] 2.3 mg/dL Normal 1.9-2.7 [facility] Comment on above: Performed By: #### L [id number] ####[facility] ([facility])[address] [place] [address] Magnesium [Mass/Vol] 2.1 mg/dL Normal 1.9-2.7 [facility] Comment on above: Performed By: #### L [id number] ####[facility] ([facility])[address] [place] [address] 30on 06-06-2024 30 Normal [facility] B-TYPE NATRIURETIC PEPTIDEon 06-06-2024 Natriuretic peptide B (Bld) [Mass/Vol] 105 pg/mL High 0-100 [facility] Comment on above: Performed By: #### L [id number] ####[facility] (BEAKER)[address] [place] [address] CBC WITH AUTO DIFFERENTIALon 06-06-2024 Basophils (Bld) [#/Vol] 0.05 10*3/uL Normal 0.00-0.20 [facility] Comment on above: Performed By: #### L [id number] ####[facility] [place] [address] Basophils/100 WBC (Bld) 0.8 % Normal 0.0-1.0 [facility] Comment on above: Performed By: #### L [id number] ####[facility] [place] [address] Eosinophils (Bld) [#/Vol] 0.12 10*3/uL Normal 0.00-0.50 [facility] Comment on above: Performed By: #### L [id number] ####[facility] ([facility] [place] [address] Eosinophils/100 WBC (Bld) 1.9 % Normal 0.0-6.0 [facility] Comment on above: Performed By: #### L [id number] ####[facility] (BEAKER)[address] [place] [address] Erythrocyte distribution width (RBC) [Ratio] 16.4 % High 11.5-15.0 [facility] Comment on above: Performed By: #### L [id number] ####[facility] (BEAKER)[address] [place] [address] ERYTHROCYTE MEAN CORPUSCULAR HEMOGLOBIN CONCENTRATION (G/DL) BY AUTOMATED 32.5 g/dL Normal 32.0-35.0 [facility] Comment on above: Performed By: #### L [id number] ####[facility] (BEAKER)[address] [place] [address] Hematocrit (Bld) [Volume fraction] 30.5 % Low 39.0-55.0 [facility] Comment on above: Performed By: #### L [id number] ####[facility] (BEAKER)[address] [place] [address] Hemoglobin (Bld) [Mass/Vol] 9.9 g/dL Low 13.0-17.0 [facility] Comment on above: Performed By: #### L [id number] ####[facility] ([facility])[address] [place] [address] Immature granulocytes (Bld) [#/Vol] 0.02 10*3/uL Normal 0.00-0.20 [facility] Comment on above: Performed By: #### L [id number] ####[facility] ([facility])[address] [place] [address] Immature granulocytes/100 WBC (Bld) 0.3 % Normal 0.0-1.0 [facility] Comment on above: Performed By: #### L [id number] ####[facility] [place] [address] Lymphocytes (Bld) [#/Vol] 1.77 10*3/uL Normal 1.20-4.00 [facility] Comment on above: Performed By: #### L [id number] ####[facility] (BEAKER)[address] [place] [address] Lymphocytes/100 WBC (Bld) 28.0 % Normal 20.0-45.0 [facility] Comment on above: Performed By: #### L [id number] ####[facility] (BEAKER)[address] [place] [address] MCH (RBC) [Entitic mass] 30.0 pg Normal 27.0-33.0 [facility] Comment on above: Performed By: #### L [id number] ####[facility] (BEAKER)[address] [place] [address] MCV (RBC) [Entitic vol] 92.4 fL Normal 82.0-98.0 [facility] Comment on above: Performed By: #### L [id number] ####[facility] (BEAKER)[address] [place] [address] Monocytes (Bld) [#/Vol] 0.66 10*3/uL Normal 0.10-1.00 [facility] Comment on above: Performed By: #### L [id number] ####[facility] (BEAKER)[address] [place] [address] Monocytes/100 WBC (Bld) 10.4 % Normal 5.0-12.0 [facility] Comment on above: Performed By: #### L [id number] ####[facility] (BEAKER)[address] [place] [address] Neutrophils (Bld) [#/Vol] 3.71 10*3/uL Normal 1.60-7.60 [facility] Comment on above: Performed By: #### L [id number] ####[facility] (BEAKER)[address] [place] [address] Neutrophils/100 WBC (Bld) 58.6 % Normal 40.0-72.0 [facility] Comment on above: Performed By: #### L [id number] ####[facility] (BEAKER)[address] [place] [address] NRBC (PER 100 WBCS) BY AUTOMATED COUNT 0.0 % Normal 0 [facility] Comment on above: Performed By: #### L [id number] ####[facility] (BEAKER)[address] [place] [address] PLATELETS (10*3/UL) IN BLOOD AUTOMATED COUNT 293 10*3/uL Normal 150-400 [facility] Comment on above: Performed By: #### L [id number] ####[facility] (BEAKER)[address] [place] [address] RBC (Bld) [#/Vol] 3.30 10*6/uL Low 4.20-5.70 [facility] Comment on above: Performed By: #### L [id number] ####[facility] (BEAKER)[address] [place] [address] WBC (Bld) [#/Vol] 6.33 10*3/uL Normal 4.00-10.60 [facility] Comment on above: Performed By: #### L [id number] ####[facility] (BEAKER)[address] [place] [address] COMPREHENSIVE METABOLIC PANE Brayan 06-06-2024 Albumin [Mass/Vol] 3.4 g/dL Low 3.5-5.7 [facility] Comment on above: Performed By: #### L [id number] ####[facility] [place] [address] ALP [Catalytic activity/Vol] 53 U/L Normal 34-104 [facility] Comment on above: Performed By: #### L [id number] ####[facility] ([facility] [place] [address] ALT [Catalytic activity/Vol] 6 U/L Low 7-52 [facility] Comment on above: Performed By: #### L [id number] ####[facility] (BEAKER)[address] [place] [address] Anion gap [Moles/Vol] 11 mmol/L Normal 7-20 [facility] Comment on above: Performed By: #### L [id number] ####[facility] (BEAKER)[address] [place] [address] AST [Catalytic activity/Vol] 14 U/L Normal 13-39 [facility] Comment on above: Performed By: #### L [id number] ####[facility] ([facility] [place] [address] Bilirubin [Mass/Vol] 0.7 mg/dL Normal 0.3-1.0 [facility] Comment on above: Performed By: #### L [id number] ####[facility] (BEAKER)[address] [place] [address] Calcium [Mass/Vol] 8.8 mg/dL Normal 8.6-10.3 [facility] Comment on above: Performed By: #### L [id number] ####[facility] (BEAKER)[address] [place] [address] Chloride [Moles/Vol] 105 mmol/L Normal 98-107 [facility] Comment on above: Performed By: #### L [id number] ####[facility] ([facility] [place] [address] CO2 [Moles/Vol] 26 mmol/L Normal 21-31 [facility] Comment on above: Performed By: #### L [id number] ####[facility] ([facility] [place] [address] Creatinine [Mass/Vol] 0.72 mg/dL Normal 0.70-1.30 [facility] Comment on above: Performed By: #### L [id number] ####[facility] ([facility])[address] [place] [address] GLOMERULAR FILTRATION RATE ML/MIN/1.73 SQ M.PREDICTED 103.3 mL/min/1.73m*2 Normal >60.0 [facility] Comment on above: Result Comment: [facility]???s estimated glomerular filtration rate (eGFR) will no [...] of individuals. Performed By: #### L [id number] ####[facility] ([facility] [place] [address] Glucose [Mass/Vol] 91 mg/dL Normal 70-100 [facility] Comment on above: Performed By: #### L [id number] ####[facility] ([facility] [place] [address] Potassium [Moles/Vol] 4.0 mmol/L Normal 3.5-5.1 [facility] Comment on above: Performed By: #### L [id number] ####[facility] ([facility])[address] [place] [address] Protein [Mass/Vol] 6.2 g/dL Normal 6.0-8.3 [facility] Comment on above: Performed By: #### L [id number] ####[facility] ([facility])[address] [place] [address] Sodium [Moles/Vol] 138 mmol/L Normal 136-145 [facility] Comment on above: Performed By: #### L [id number] ####[facility] ([facility])[address] [place] [address] Urea nitrogen [Mass/Vol] 22 mg/dL Normal 7-25 [facility] Comment on above: Performed By: #### L [id number] ####[facility] ([facility])[address] [place] [address] UREA NITROGEN/CREATININE (MASS RATIO) IN SER/PLAS 30.6 [facility] Comment on above: Performed By: #### L [id number] ####[facility] ([facility])[address] [place] [address] HEMOGLOBIN A1Con 06-06-2024 Glucose [Mass/Vol] 128 mg/dL Normal [facility] Comment on above: Performed By: #### L [id number] ####[facility] ([facility])[address] [place] [address] HbA1c (Bld) [Mass fraction] 6.1 % High 4.0-6.0 [facility] Comment on above: Performed By: #### L [id number] ####[facility] ([facility])[address] [place] [address] HPon 06-06-2024 HP Normal [facility] LIPID PANELon 06-06-2024 CHOL/HDL 3.6 mg/dL [facility] Comment on above: Performed By: #### L [id number] ####[facility] ([facility] [place] [address] Cholesterol [Mass/Vol] 96 mg/dL Low 120-200 [facility] Comment on above: Performed By: #### L [id number] ####[facility] ([facility] [place] [address] Magnesium [Mass/Vol] 105 mg/dL Normal 40-149 [facility] Comment on above: Result Comment: TRIG LYCERIDE REFERENCE RANGE:20 YEARS AND OLDER CARDIOVASCULAR RISKLESS THAN 150 mg/dL LOW [id number] TO 199 mg/dL BORDERLINE [id number] mg/dL AND GREATER HIGH RISK Performed By: #### L [id number] ####[facility] ([facility])[address] [place] [address] Magnesium [Mass/Vol] 48 mg/dL Normal 0-160 [facility] Comment on above: Performed By: #### L [id number] ####[facility] ([facility])[address] [place] [address] Magnesium [Mass/Vol] 27 mg/dL Normal 23-92 [facility] Comment on above: Performed By: #### L [id number] ####[facility] ([facility])[address] [place] [address] NON HDL CHOL. (LDL+VLDL) 69 Normal [facility] Comment on above: Performed By: #### L [id number] ####[facility] ([facility] [facility] [address] TOTAL VLDL-C 21 mg/dL Normal 0-40 [facility] Comment on above: Performed By: #### L [id number] ####[facility] ([facility])[address] [place] [address] MAGNESIUMon 06-06-2024 Magnesium [Mass/Vol] 2.2 mg/dL Normal 1.9-2.7 [facility] Comment on above: Performed By: #### L [id number] ####[facility] ([facility] [place] [address] NURSNOTEon 06-06-2024 NURSNOTE Skin assessment comp leted, pt has wound vac with lorenza wrap to RLE, per hospitalist Stephy, Vascular team will be consulted to take down lorenza wrap, wound vac, and assess right lower extremity. Wound care consult placed due to existing wounds. Normal [facility] TROPONIN Ion 06-06-2024 Troponin I.cardiac [Mass/Vol] 0.00 ng/mL Normal 0.00-0.04 [facility] Comment on above: Performed By: #### L [id number] ####[facility] (BEAKER)[address] [place] [address] Basophils Auto (Bld) [#/Vol] on 06-05-2024 Basophils (Bld) [#/Vol] Automated basophil count 0.0-0.1 [facility] Basophils/100 WBC Auto (Bld) on 06-05-2024 Basophils/100 WBC (Bld) Automated basophil % 0.2-2.0 [facility] Eosinophils/100 WBC Auto (Bl d)on 06-05-2024 Eosinophils/100 WBC (Bld) Automated eosinophil % 0.9-7.0 [facility] Erythrocyte distribution wid th Auto (RBC) [Ratio]on 06-05-2024 Erythrocyte distribution width (RBC) [Ratio] Erythrocyte distribution width [Ratio] by Automated count High 11.0-15.0 [facility] Hematocrit Auto (Bld) [Volum e fraction]on 06-05-2024 Hematocrit (Bld) [Volume fraction] Hematocrit [Volume Fraction] of Blood by Automated count Low 42.0-54.0 [facility] Hemoglobin [Mass/volume] in Bloodon 06-05-2024 Hemoglobin (Bld) [Mass/Vol] Hemoglobin [Mass/volume] in Blood Low 14.0-18.0 [facility] Laboratory - Hematology and Cell countson 06-05-2024 Immature granulocytes/100 WBC (Bld) 0.8 % High 0.0-0.5 [facility] Leukocytes [#/volume] correc alicia for nucleated erythrocytes in Blood by Automated counon 06-05-2024 WBC corrected for nucl RBC Auto (Bld) [#/Vol] Leukocytes [#/volume] corrected for nucleated erythrocytes in Blood by Automated coun 4.0-11.0 [facility] Lymphocytes Auto (Bld) [#/Vo l]on 06-05-2024 Lymphocytes (Bld) [#/Vol] Lymphocytes [#/volume] in Blood by Automated count 1.2-3.8 [facility] Lymphocytes/100 WBC Auto (Bl d)on 06-05-2024 Lymphocytes/100 WBC (Bld) Lymphocytes/100 leukocytes in Blood by Automated count 20.5-60.0 [facility] MCH Auto (RBC) [Entitic mass ]on 06-05-2024 MCH (RBC) [Entitic mass] MCH [Entitic mass] by Automated count 25.9-34.0 [facility] MCHC Auto (RBC) [Mass/Vol]on 06-05-2024 MCHC (RBC) [Mass/Vol] MCHC [Mass/volume] by Automated count 29.9-35.2 [facility] MCV Auto (RBC) [Entitic vol] on 06-05-2024 MCV (RBC) [Entitic vol] MCV [Entitic volume] by Automated count 80.0-94.0 [facility] Monocytes Auto (Bld) [#/Vol] on 06-05-2024 Monocytes (Bld) [#/Vol] Automated blood monocyte count 0.3-0.8 [facility] Monocytes/100 WBC Auto (Bld) on 06-05-2024 Monocytes/100 WBC (Bld) Automated monocyte % 1.7-12.0 [facility] Neutrophils Auto (Bld) [#/Vo l]on 06-05-2024 Neutrophils (Bld) [#/Vol] Neutrophils [#/volume] in Blood by Automated count 1.4-6.5 [facility] Neutrophils/100 WBC Auto (Bl d)on 06-05-2024 Neutrophils/100 WBC (Bld) Automated neutrophil % 43.0-75.0 [facility] No Panel Informationon 06-05 Eosinophils # (Auto) 0.2 10 3/uL 0.0-0.7 [facility] Immature Granulocyte # (Auto) 0.05 10 3/uL High 0.00-0.03 [facility] Platelet mean volume Auto (B ld) [Entitic vol]on 06-05-2024 Platelet mean volume (Bld) [Entitic vol] Platelet mean volume [Entitic volume] in Blood by Automated count 9.5-13.5 [facility] Platelets Auto (Bld) [#/Vol] on 06-05-2024 Platelets (Bld) [#/Vol] Platelets [#/volume] in Blood by Automated count 150-450 [facility] RBC Auto (Bld) [#/Vol]on RBC (Bld) [#/Vol] Erythrocytes [#/volu me] in Blood by Automated count Low 4.70-6.10 [facility] Basophils Auto (Bld) [#/Vol] on 06-04-2024 Basophils (Bld) [#/Vol] Automated basophil count 0.0-0.1 [facility] Basophils/100 WBC Auto (Bld) on 06-04-2024 Basophils/100 WBC (Bld) Automated basophil % 0.2-2.0 [facility] Eosinophils/100 WBC Auto (Bl d)on 06-04-2024 Eosinophils/100 WBC (Bld) Automated eosinophil % 0.9-7.0 [facility] Erythrocyte distribution wid th Auto (RBC) [Ratio]on 06-04-2024 Erythrocyte distribution width (RBC) [Ratio] Erythrocyte distribution width [Ratio] by Automated count High 11.0-15.0 [facility] Hematocrit Auto (Bld) [Volum e fraction]on 06-04-2024 Hematocrit (Bld) [Volume fraction] Hematocrit [Volume Fraction] of Blood by Automated count Low 42.0-54.0 [facility] Hemoglobin [Mass/volume] in Bloodon 06-04-2024 Hemoglobin (Bld) [Mass/Vol] Hemoglobin [Mass/volume] in Blood Low 14.0-18.0 [facility] - Hematology and Cell countson 06-04-2024 Immature granulocytes/100 WBC (Bld) 0.3 % 0.0-0.5 [facility] Leukocytes [#/volume] correc alicia for nucleated erythrocytes in Blood by Automated counon 06-04-2024 WBC corrected for nucl RBC Auto (Bld) [#/Vol] Leukocytes [#/volume] corrected for nucleated erythrocytes in Blood by Automated coun 4.0-11.0 [facility] Lymphocytes Auto (Bld) [#/Vo l]on 06-04-2024 Lymphocytes (Bld) [#/Vol] Lymphocytes [#/volume] in Blood by Automated count 1.2-3.8 [facility] Lymphocytes/100 WBC Auto (Bl d)on 06-04-2024 Lymphocytes/100 WBC (Bld) Lymphocytes/100 leukocytes in Blood by Automated count 20.5-60.0 [facility] MCH Auto (RBC) [Entitic mass ]on 06-04-2024 MCH (RBC) [Entitic mass] MCH [Entitic mass] by Automated count 25.9-34.0 [facility] MCHC Auto (RBC) [Mass/Vol]on 06-04-2024 MCHC (RBC) [Mass/Vol] MCHC [Mass/volume] by Automated count 29.9-35.2 [facility] MCV Auto (RBC) [Entitic vol] on 06-04-2024 MCV (RBC) [Entitic vol] MCV [Entitic volume] by Automated count 80.0-94.0 [facility] Monocytes Auto (Bld) [#/Vol] on 06-04-2024 Monocytes (Bld) [#/Vol] Automated blood monocyte count 0.3-0.8 [facility] Monocytes/100 WBC Auto (Bld) on 06-04-2024 Monocytes/100 WBC (Bld) Automated monocyte % 1.7-12.0 [facility] Neutrophils Auto (Bld) [#/Vo l]on 06-04-2024 Neutrophils (Bld) [#/Vol] Neutrophils [#/volume] in Blood by Automated count 1.4-6.5 [facility] Neutrophils/100 WBC Auto (Bl d)on 06-04-2024 Neutrophils/100 WBC (Bld) Automated neutrophil % 43.0-75.0 [facility] No Panel Informationon 06-04 Eosinophils # (Auto) 0.2 10 3/uL 0.0-0.7 [facility] Immature Granulocyte # (Auto) 0.02 10 3/uL 0.00-0.03 [facility] Platelet mean volume Auto (B ld) [Entitic vol]on 06-04-2024 Platelet mean volume (Bld) [Entitic vol] Platelet mean volume [Entitic volume] in Blood by Automated count 9.5-13.5 [facility] Platelets Auto (Bld) [#/Vol] on 06-04-2024 Platelets (Bld) [#/Vol] Platelets [#/volume] in Blood by Automated count 150-450 [facility] RBC Auto (Bld) [#/Vol]on RBC (Bld) [#/Vol] Erythrocytes [#/volu me] in Blood by Automated count Low 4.70-6.10 [facility] Basophils Auto (Bld) [#/Vol] on 06-03-2024 Basophils (Bld) [#/Vol] Automated basophil count 0.0-0.1 [facility] Basophils/100 WBC Auto (Bld) on 06-03-2024 Basophils/100 WBC (Bld) Automated basophil % 0.2-2.0 [facility] Eosinophils/100 WBC Auto (Bl d)on 06-03-2024 Eosinophils/100 WBC (Bld) Automated eosinophil % 0.9-7.0 [facility] Erythrocyte distribution wid th Auto (RBC) [Ratio]on 06-03-2024 Erythrocyte distribution width (RBC) [Ratio] Erythrocyte distribution width [Ratio] by Automated count High 11.0-15.0 [facility] Hematocrit Auto (Bld) [Volum e fraction]on 06-03-2024 Hematocrit (Bld) [Volume fraction] Hematocrit [Volume Fraction] of Blood by Automated count Low 42.0-54.0 [facility] Hemoglobin [Mass/volume] in Bloodon 06-03-2024 Hemoglobin (Bld) [Mass/Vol] Hemoglobin [Mass/volume] in Blood Low 14.0-18.0 [facility] - Hematology and Cell countson 06-03-2024 Immature granulocytes/100 WBC (Bld) 0.2 % 0.0-0.5 [facility] Leukocytes [#/volume] correc alicia for nucleated erythrocytes in Blood by Automated counon 06-03-2024 WBC corrected for nucl RBC Auto (Bld) [#/Vol] Leukocytes [#/volume] corrected for nucleated erythrocytes in Blood by Automated coun 4.0-11.0 [facility] Lymphocytes Auto (Bld) [#/Vo l]on 06-03-2024 Lymphocytes (Bld) [#/Vol] Lymphocytes [#/volume] in Blood by Automated count 1.2-3.8 [facility] Lymphocytes/100 WBC Auto (Bl d)on 06-03-2024 Lymphocytes/100 WBC (Bld) Lymphocytes/100 leukocytes in Blood by Automated count 20.5-60.0 [facility] MCH Auto (RBC) [Entitic mass ]on 06-03-2024 MCH (RBC) [Entitic mass] MCH [Entitic mass] by Automated count 25.9-34.0 [facility] MCHC Auto (RBC) [Mass/Vol]on 06-03-2024 MCHC (RBC) [Mass/Vol] MCHC [Mass/volume] by Automated count 29.9-35.2 [facility] MCV Auto (RBC) [Entitic vol] on 06-03-2024 MCV (RBC) [Entitic vol] MCV [Entitic volume] by Automated count 80.0-94.0 [facility] Monocytes Auto (Bld) [#/Vol] on 06-03-2024 Monocytes (Bld) [#/Vol] Automated blood monocyte count 0.3-0.8 [facility] Monocytes/100 WBC Auto (Bld) on 06-03-2024 Monocytes/100 WBC (Bld) Automated monocyte % 1.7-12.0 [facility] Neutrophils Auto (Bld) [#/Vo l]on 06-03-2024 Neutrophils (Bld) [#/Vol] Neutrophils [#/volume] in Blood by Automated count 1.4-6.5 [facility] Neutrophils/100 WBC Auto (Bl d)on 06-03-2024 Neutrophils/100 WBC (Bld) Automated neutrophil % 43.0-75.0 [facility] No Panel Informationon 06-03 Eosinophils # (Auto) 0.1 10 3/uL 0.0-0.7 [facility] Immature Granulocyte # (Auto) 0.02 10 3/uL 0.00-0.03 [facility] Platelet mean volume Auto (B ld) [Entitic vol]on 06-03-2024 Platelet mean volume (Bld) [Entitic vol] Platelet mean volume [Entitic volume] in Blood by Automated count 9.5-13.5 [facility] Platelets Auto (Bld) [#/Vol] on 06-03-2024 Platelets (Bld) [#/Vol] Platelets [#/volume] in Blood by Automated count 150-450 [facility] RBC Auto (Bld) [#/Vol]on RBC (Bld) [#/Vol] Erythrocytes [#/volu me] in Blood by Automated count Low 4.70-6.10 [facility] Basophils Auto (Bld) [#/Vol] on 06-02-2024 Basophils (Bld) [#/Vol] Automated basophil count 0.0-0.1 [facility] Basophils/100 WBC Auto (Bld) on 06-02-2024 Basophils/100 WBC (Bld) Automated basophil % 0.2-2.0 [facility] Eosinophils/100 WBC Auto (Bl d)on 06-02-2024 Eosinophils/100 WBC (Bld) Automated eosinophil % 0.9-7.0 [facility] Erythrocyte distribution wid th Auto (RBC) [Ratio]on 06-02-2024 Erythrocyte distribution width (RBC) [Ratio] Erythrocyte distribution width [Ratio] by Automated count High 11.0-15.0 [facility] Hematocrit Auto (Bld) [Volum e fraction]on 06-02-2024 Hematocrit (Bld) [Volume fraction] Hematocrit [Volume Fraction] of Blood by Automated count Low 42.0-54.0 [facility] Hemoglobin [Mass/volume] in Bloodon 06-02-2024 Hemoglobin (Bld) [Mass/Vol] Hemoglobin [Mass/volume] in Blood Low 14.0-18.0 [facility] - Hematology and Cell countson 06-02-2024 Immature granulocytes/100 WBC (Bld) 0.4 % 0.0-0.5 [facility] Leukocytes [#/volume] correc alicia for nucleated erythrocytes in Blood by Automated counon 06-02-2024 WBC corrected for nucl RBC Auto (Bld) [#/Vol] Leukocytes [#/volume] corrected for nucleated erythrocytes in Blood by Automated coun 4.0-11.0 [facility] Lymphocytes Auto (Bld) [#/Vo l]on 06-02-2024 Lymphocytes (Bld) [#/Vol] Lymphocytes [#/volume] in Blood by Automated count 1.2-3.8 [facility] Lymphocytes/100 WBC Auto (Bl d)on 06-02-2024 Lymphocytes/100 WBC (Bld) Lymphocytes/100 leukocytes in Blood by Automated count 20.5-60.0 [facility] MCH Auto (RBC) [Entitic mass ]on 06-02-2024 MCH (RBC) [Entitic mass] MCH [Entitic mass] by Automated count 25.9-34.0 [facility] MCHC Auto (RBC) [Mass/Vol]on 06-02-2024 MCHC (RBC) [Mass/Vol] MCHC [Mass/volume] by Automated count 29.9-35.2 [facility] MCV Auto (RBC) [Entitic vol] on 06-02-2024 MCV (RBC) [Entitic vol] MCV [Entitic volume] by Automated count 80.0-94.0 [facility] Monocytes Auto (Bld) [#/Vol] on 06-02-2024 Monocytes (Bld) [#/Vol] Automated blood monocyte count 0.3-0.8 [facility] Monocytes/100 WBC Auto (Bld) on 06-02-2024 Monocytes/100 WBC (Bld) Automated monocyte % 1.7-12.0 [facility] Neutrophils Auto (Bld) [#/Vo l]on 06-02-2024 Neutrophils (Bld) [#/Vol] Neutrophils [#/volume] in Blood by Automated count 1.4-6.5 [facility] Neutrophils/100 WBC Auto (Bl d)on 06-02-2024 Neutrophils/100 WBC (Bld) Automated neutrophil % 43.0-75.0 [facility] No Panel Informationon 06-02 Eosinophils # (Auto) 0.2 10 3/uL 0.0-0.7 [facility] Immature Granulocyte # (Auto) 0.03 10 3/uL 0.00-0.03 [facility] Platelet mean volume Auto (B ld) [Entitic vol]on 06-02-2024 Platelet mean volume (Bld) [Entitic vol] Platelet mean volume [Entitic volume] in Blood by Automated count 9.5-13.5 [facility] Platelets Auto (Bld) [#/Vol] on 06-02-2024 Platelets (Bld) [#/Vol] Platelets [#/volume] in Blood by Automated count 150-450 [facility] RBC Auto (Bld) [#/Vol]on RBC (Bld) [#/Vol] Erythrocytes [#/volu me] in Blood by Automated count Low 4.70-6.10 [facility] 36on 06-01-2024 36 Patient would like Ino Choudhary to know that he is having another surgery tomorrow This just an fyi message Normal [facility] Basophils Auto (Bld) [#/Vol] on 06-01-2024 Basophils (Bld) [#/Vol] Automated basophil count 0.0-0.1 [facility] Basophils/100 WBC Auto (Bld) on 06-01-2024 Basophils/100 WBC (Bld) Automated basophil % 0.2-2.0 [facility] Eosinophils/100 WBC Auto (Bl d)on 06-01-2024 Eosinophils/100 WBC (Bld) Automated eosinophil % 0.9-7.0 [facility] Erythrocyte distribution wid th Auto (RBC) [Ratio]on 06-01-2024 Erythrocyte distribution width (RBC) [Ratio] Erythrocyte distribution width [Ratio] by Automated count High 11.0-15.0 [facility] Estimated glomerular filtrat ion rate (GFR) non- Americanon 06-01-2024 GFR/1.73 sq M.predicted among non-blacks MDRD (S/P/Bld) [Vol rate/Area] Estimated glomerular filtration rate (GFR) non- Low >=60 mL/min/1.73m 2 [facility] Globulin Calc (S) [Mass/Vol] on 06-01-2024 Globulin (S) [Mass/Vol] Serum globulin measurement by calculation (mass/volume) [facility] Hematocrit Auto (Bld) [Volum e fraction]on 06-01-2024 Hematocrit (Bld) [Volume fraction] Hematocrit [Volume Fraction] of Blood by Automated count Low 42.0-54.0 [facility] Hemoglobin [Mass/volume] in Bloodon 06-01-2024 Hemoglobin (Bld) [Mass/Vol] Hemoglobin [Mass/volume] in Blood Low 14.0-18.0 [facility] INR in Platelet poor plasma by Coagulation assayon 06-01-2024 INR Coag (PPP) [Relative time] INR in Platelet poor plasma by Coagulation assay [facility] Comment on above: DESIRED INR:2.0-3.0 CONDITIONS NOT LISTED BELOW2.5-3.5 FOR PROSTHETIC HEART VALVE REPLACEMENT2.5-3.5 RECURRENT THROMBOSIS Laboratory - Chemistry and C hemistry - challengeon 06-01-2024 Albumin [Mass/Vol] 3.1 g/dL Low 3.4-5.0 [facility] ALP [Catalytic activity/Vol] 69 U/L 46-116 [facility] ALT [Catalytic activity/Vol] 21 U/L 16-63 [facility] AST [Catalytic activity/Vol] 18 U/L 15-37 [facility] Bilirubin [Mass/Vol] 0.8 mg/dL 0.2-1.0 [facility] Calcium [Mass/Vol] 8.8 mg/dL 8.5-10.1 [facility] Chloride [Moles/Vol] 100 mmol/L 98-107 [facility] CO2 [Moles/Vol] 31.0 mmol/L 21.0-32.0 [facility] Creatinine [Mass/Vol] 1.27 mg/dL 0.70-1.30 [facility] GFR/1.73 sq M.predicted MDRD (S/P/Bld) [Vol rate/Area] mL/min/{1.73_m2} >=60 mL/min/1.73m 2 [facility] Glucose [Mass/Vol] 118 mg/dL High 74-106 [facility] Lactate [Moles/Vol] 1.4 mmol/L 0.4-2.0 [facility] Potassium [Moles/Vol] 4.3 mmol/L 3.5-5.1 [facility] Protein [Mass/Vol] 6.9 g/dL 6.4-8.2 [facility] Sodium [Moles/Vol] 140 mmol/L 136-145 [facility] Urea nitrogen [Mass/Vol] 21.0 mg/dL High 7.0-18.0 [facility] Urea nitrogen/Creatinine [Mass ratio] 16.5 mg/mg [facility] - Hematology and Cell countson 06-01-2024 Immature granulocytes/100 WBC (Bld) 0.2 % 0.0-0.5 [facility] Leukocytes [#/volume] correc alicia for nucleated erythrocytes in Blood by Automated counon 06-01-2024 WBC corrected for nucl RBC Auto (Bld) [#/Vol] Leukocytes [#/volume] corrected for nucleated erythrocytes in Blood by Automated coun 4.0-11.0 [facility] Lymphocytes Auto (Bld) [#/Vo l]on 06-01-2024 Lymphocytes (Bld) [#/Vol] Lymphocytes [#/volume] in Blood by Automated count 1.2-3.8 [facility] Lymphocytes/100 WBC Auto (Bl d)on 06-01-2024 Lymphocytes/100 WBC (Bld) Lymphocytes/100 leukocytes in Blood by Automated count 20.5-60.0 [facility] MCH Auto (RBC) [Entitic mass ]on 06-01-2024 MCH (RBC) [Entitic mass] MCH [Entitic mass] by Automated count 25.9-34.0 [facility] MCHC Auto (RBC) [Mass/Vol]on 06-01-2024 MCHC (RBC) [Mass/Vol] MCHC [Mass/volume] by Automated count 29.9-35.2 [facility] MCV Auto (RBC) [Entitic vol] on 06-01-2024 MCV (RBC) [Entitic vol] MCV [Entitic volume] by Automated count High 80.0-94.0 [facility] Monocytes Auto (Bld) [#/Vol] on 06-01-2024 Monocytes (Bld) [#/Vol] Automated blood monocyte count 0.3-0.8 [facility] Monocytes/100 WBC Auto (Bld) on 06-01-2024 Monocytes/100 WBC (Bld) Automated monocyte % 1.7-12.0 [facility] Neutrophils Auto (Bld) [#/Vo l]on 06-01-2024 Neutrophils (Bld) [#/Vol] Neutrophils [#/volume] in Blood by Automated count 1.4-6.5 [facility] Neutrophils/100 WBC Auto (Bl d)on 06-01-2024 Neutrophils/100 WBC (Bld) Automated neutrophil % 43.0-75.0 [facility] No Panel Informationon 06-01 Eosinophils # (Auto) 0.2 10 3/uL 0.0-0.7 [facility] Immature Granulocyte # (Auto) 0.02 10 3/uL 0.00-0.03 [facility] Platelet mean volume Auto (B ld) [Entitic vol]on 06-01-2024 Platelet mean volume (Bld) [Entitic vol] Platelet mean volume [Entitic volume] in Blood by Automated count 9.5-13.5 [facility] Platelets Auto (Bld) [#/Vol] on 06-01-2024 Platelets (Bld) [#/Vol] Platelets [#/volume] in Blood by Automated count 150-450 [facility] Prothrombin time (PT)on 05-12 PT Coag (PPP) [Time] Prothrombin time (PT) 9.0- 11.6 [facility] RBC Auto (Bld) [#/Vol]on RBC (Bld) [#/Vol] Erythrocytes [#/volu me] in Blood by Automated count Low 4.70-6.10 [facility] Serum or plasma albumin/glob ulin mass ratioon 06-01-2024 Albumin/Globulin [Mass ratio] Serum or plasma albumin/globulin mass ratio [facility] Serum or plasma anion gap de terminationon 06-01-2024 Anion gap [Moles/Vol] Serum or plasma an ion gap determination [facility] Basophils Auto (Bld) [#/Vol] on 05-27-2024 Basophils (Bld) [#/Vol] Automated basophil count 0.0-0.1 [facility] Basophils/100 WBC Auto (Bld) on 05-27-2024 Basophils/100 WBC (Bld) Automated basophil % 0.2-2.0 [facility] Eosinophils/100 WBC Auto (Bl d)on 05-27-2024 Eosinophils/100 WBC (Bld) Automated eosinophil % 0.9-7.0 [facility] Erythrocyte distribution wid th Auto (RBC) [Ratio]on 05-27-2024 Erythrocyte distribution width (RBC) [Ratio] Erythrocyte distribution width [Ratio] by Automated count High 11.0-15.0 [facility] Hematocrit Auto (Bld) [Volum e fraction]on 05-27-2024 Hematocrit (Bld) [Volume fraction] Hematocrit [Volume Fraction] of Blood by Automated count Low 42.0-54.0 [facility] Hemoglobin [Mass/volume] in Bloodon 05-27-2024 Hemoglobin (Bld) [Mass/Vol] Hemoglobin [Mass/volume] in Blood Low 14.0-18.0 [facility] Brayan 05-27-2024 L ------ Specimen: [id number] Received: 05/27/24-1231 Status: KIMI Moscoso Num: [id number] Spec Type: Surgical Subm Dr: Kole Diaz,DPM, MS Tissues: A DIGIT AMPUTATION (RT TRANSMETATARSAL AMPUTATIO) Procedures: HE/4, Gross/Micro L4, Decalcification Age/ Patient Sex Location Account Attending Physician Matt Waterman/M LABELL [id number] Kole Diaz DPM, MS SPEC NUM: [id number] RECD: 05/27/24 STATUS: KIMI MOSCOSO NUM: [id number] CHRIS: 05/27/241000 [facility] DR: Kole Diaz DPM, MS ENTERED: 05/27/24 [facility] DR: Dimas,Lab SPEC TYPE: Surgical DEPT: THEO JACOBSON ENTERED BY: [id number] RECV BY: [id number] ORDERED: HE/4, Gross/Micro L4, Decalcification ORDERED: HE/4, Gross/Micro L4, Decalcification Pathological Diagnosis Right foot, transmetatarsal amputation: Skin ulceration with underlying soft tissue inflammation and hemorrhage. Clinical Information Type 2 diabetes mellitus with ulcer of right heel and midfoot with fat layer exposure Gross Description Part A is received in formalin labeled with the patients name, date of , and right transmetatarsal amputation are 3 loosely attached portions of metatarsal bone, 4.7 x 3 x 1.5 cm with a detached portion of metatarsal bone, 2.5 x 1.5 x 1.5 cm, resected with fibrofatty tissue, up to 0.4 cm in thickness. No skin is identified. The specimens are sectioned to reveal chappell, firm and uniform medullary bone. Cassettes: A1 Soft tissue A2?A3 Longitudinally bisected section of larger specimen, decalcified A4 Cross-section of detached specimen, decalcified (4, ss, [id number] A)JG Specimen: [id number] Received: 05/27/24 Status: KIMI Moscoso Num: [id number] Spec Type: Surgical Subm Dr: Kole Diaz,HAMZAH, MS Tissues: A DIGIT AMPUTATION (RT TRANSMETATARSAL AMPUTATIO) Procedures: HE/4, Gross/Micro L4, Decalcification Patient: Matt Waterman [id number] (Continued) Specimen: [id number] Received: 05/27/24 (Continued) Signed (signature on file) Birgit Rivera MD 06/02/24 1601 Specimen: [id number] Received: 05/27/24 Status: KIMI Moscoso Num: [id number] Spec Type: Surgical Subm Dr: Kole Diaz,HAMZAH, MS Tissues: A DIGIT AMPUTATION (RT TRANSMETATARSAL AMPUTATIO) Procedures: HE/4, Gross/Micro L4, Decalcification Patient: Matt Waterman [id number] (Continued) Specimen: [id number] Received: 05/27/24 (Continued) CPT Codes 69557 Specimen: [id number] Received: 05/27/24-1232 Status: KIMI Moscoso Num: [id number] Spec Type: Surgical Subm Dr: Kole Diaz,DPM, MS Tissues: A DIGIT AMPUTATION (RT TRANSMETATARSAL AMPUTATIO) Procedures: HE/4, Gross/Micro L4, Decalcification Patient: Matt Waterman [id number] (Continued) Signed (signature on file) Birgit Rivera MD 06/02/24 1601 Normal [facility] Laboratory - Hematology and Cell countson 05-27-2024 Immature granulocytes/100 WBC (Bld) 0.3 % 0.0-0.5 [facility] Leukocytes [#/volume] correc alicia for nucleated erythrocytes in Blood by Automated counon 05-27-2024 WBC corrected for nucl RBC Auto (Bld) [#/Vol] Leukocytes [#/volume] corrected for nucleated erythrocytes in Blood by Automated coun 4.0-11.0 [facility] Lymphocytes Auto (Bld) [#/Vo l]on 05-27-2024 Lymphocytes (Bld) [#/Vol] Lymphocytes [#/volume] in Blood by Automated count 1.2-3.8 [facility] Lymphocytes/100 WBC Auto (Bl d)on 05-27-2024 Lymphocytes/100 WBC (Bld) Lymphocytes/100 leukocytes in Blood by Automated count 20.5-60.0 [facility] MCH Auto (RBC) [Entitic mass ]on 05-27-2024 MCH (RBC) [Entitic mass] MCH [Entitic mass] by Automated count 25.9-34.0 [facility] MCHC Auto (RBC) [Mass/Vol]on 05-27-2024 MCHC (RBC) [Mass/Vol] MCHC [Mass/volume] by Automated count 29.9-35.2 [facility] MCV Auto (RBC) [Entitic vol] on 05-27-2024 MCV (RBC) [Entitic vol] MCV [Entitic volume] by Automated count 80.0-94.0 [facility] Monocytes Auto (Bld) [#/Vol] on 05-27-2024 Monocytes (Bld) [#/Vol] Automated blood monocyte count 0.3-0.8 [facility] Monocytes/100 WBC Auto (Bld) on 05-27-2024 Monocytes/100 WBC (Bld) Automated monocyte % 1.7-12.0 [facility] Neutrophils Auto (Bld) [#/Vo l]on 05-27-2024 Neutrophils (Bld) [#/Vol] Neutrophils [#/volume] in Blood by Automated count 1.4-6.5 [facility] Neutrophils/100 WBC Auto (Bl d)on 05-27-2024 Neutrophils/100 WBC (Bld) Automated neutrophil % 43.0-75.0 [facility] No Panel Informationon 05-27 Eosinophils # (Auto) 0.2 10 3/uL 0.0-0.7 [facility] Immature Granulocyte # (Auto) 0.02 10 3/uL 0.00-0.03 [facility] Platelet mean volume Auto (B ld) [Entitic vol]on 05-27-2024 Platelet mean volume (Bld) [Entitic vol] Platelet mean volume [Entitic volume] in Blood by Automated count 9.5-13.5 [facility] Platelets Auto (Bld) [#/Vol] on 05-27-2024 Platelets (Bld) [#/Vol] Platelets [#/volume] in Blood by Automated count 150-450 [facility] RBC Auto (Bld) [#/Vol]on RBC (Bld) [#/Vol] Erythrocytes [#/volu me] in Blood by Automated count Low 4.70-6.10 [facility] Activated partial thrombopla stin time (aPTT) in platelet poor plasma by coagulation aon 05-24-2024 aPTT Coag (PPP) [Time] Activated partial thromboplastin time (aPTT) in platelet poor plasma by coagulation a 22.3-36.2 [facility] Basophils Auto (Bld) [#/Vol] on 05-24-2024 Basophils (Bld) [#/Vol] Automated basophil count 0.0-0.1 [facility] Basophils/100 WBC Auto (Bld) on 05-24-2024 Basophils/100 WBC (Bld) Automated basophil % 0.2-2.0 [facility] Eosinophils/100 WBC Auto (Bl d)on 05-24-2024 Eosinophils/100 WBC (Bld) Automated eosinophil % 0.9-7.0 [facility] Erythrocyte distribution wid th Auto (RBC) [Ratio]on 05-24-2024 Erythrocyte distribution width (RBC) [Ratio] Erythrocyte distribution width [Ratio] by Automated count High 11.0-15.0 [facility] Estimated glomerular filtrat ion rate (GFR) non- Americanon 05-24-2024 GFR/1.73 sq M.predicted among non-blacks MDRD (S/P/Bld) [Vol rate/Area] Estimated glomerular filtration rate (GFR) non- >=60 mL/min/1.73m 2 [facility] Hematocrit Auto (Bld) [Volum e fraction]on 05-24-2024 Hematocrit (Bld) [Volume fraction] Hematocrit [Volume Fraction] of Blood by Automated count Low 42.0-54.0 [facility] Hemoglobin [Mass/volume] in Bloodon 05-24-2024 Hemoglobin (Bld) [Mass/Vol] Hemoglobin [Mass/volume] in Blood Low 14.0-18.0 [facility] INR in Platelet poor plasma by Coagulation assayon 05-24-2024 INR Coag (PPP) [Relative time] INR in Platelet poor plasma by Coagulation assay [facility] Comment on above: DESIRED INR:2.0-3.0 CONDITIONS NOT LISTED BELOW2.5-3.5 FOR PROSTHETIC HEART VALVE REPLACEMENT2.5-3.5 RECURRENT THROMBOSIS Laboratory - Chemistry and C hemistry - challengeon 05-24-2024 Calcium [Mass/Vol] 9.5 mg/dL 8.5-10.1 [facility] Chloride [Moles/Vol] 102 mmol/L 98-107 [facility] CO2 [Moles/Vol] 31.2 mmol/L 21.0-32.0 [facility] Creatinine [Mass/Vol] 1.19 mg/dL 0.70-1.30 [facility] GFR/1.73 sq M.predicted MDRD (S/P/Bld) [Vol rate/Area] mL/min/{1.73_m2} >=60 mL/min/1.73m 2 [facility] Glucose [Mass/Vol] 130 mg/dL High 74-106 [facility] Potassium [Moles/Vol] 4.2 mmol/L 3.5-5.1 [facility] Sodium [Moles/Vol] 138 mmol/L 136-145 [facility] Urea nitrogen [Mass/Vol] 31.0 mg/dL High 7.0-18.0 [facility] Urea nitrogen/Creatinine [Mass ratio] 26.1 mg/mg [facility] Laboratory - Hematology and Cell countson 05-24-2024 Immature granulocytes/100 WBC (Bld) 0.3 % 0.0-0.5 [facility] Leukocytes [#/volume] correc alicia for nucleated erythrocytes in Blood by Automated counon 05-24-2024 WBC corrected for nucl RBC Auto (Bld) [#/Vol] Leukocytes [#/volume] corrected for nucleated erythrocytes in Blood by Automated coun 4.0-11.0 [facility] Lymphocytes Auto (Bld) [#/Vo l]on 05-24-2024 Lymphocytes (Bld) [#/Vol] Lymphocytes [#/volume] in Blood by Automated count 1.2-3.8 [facility] Lymphocytes/100 WBC Auto (Bl d)on 05-24-2024 Lymphocytes/100 WBC (Bld) Lymphocytes/100 leukocytes in Blood by Automated count 20.5-60.0 [facility] MCH Auto (RBC) [Entitic mass ]on 05-24-2024 MCH (RBC) [Entitic mass] MCH [Entitic mass] by Automated count 25.9-34.0 [facility] MCHC Auto (RBC) [Mass/Vol]on 05-24-2024 MCHC (RBC) [Mass/Vol] MCHC [Mass/volume] by Automated count 29.9-35.2 [facility] MCV Auto (RBC) [Entitic vol] on 05-24-2024 MCV (RBC) [Entitic vol] MCV [Entitic volume] by Automated count 80.0-94.0 [facility] Monocytes Auto (Bld) [#/Vol] on 05-24-2024 Monocytes (Bld) [#/Vol] Automated blood monocyte count 0.3-0.8 [facility] Monocytes/100 WBC Auto (Bld) on 05-24-2024 Monocytes/100 WBC (Bld) Automated monocyte % 1.7-12.0 [facility] Neutrophils Auto (Bld) [#/Vo l]on 05-24-2024 Neutrophils (Bld) [#/Vol] Neutrophils [#/volume] in Blood by Automated count 1.4-6.5 [facility] Neutrophils/100 WBC Auto (Bl d)on 05-24-2024 Neutrophils/100 WBC (Bld) Automated neutrophil % 43.0-75.0 [facility] No Panel Informationon 05-24 Eosinophils # (Auto) 0.1 10 3/uL 0.0-0.7 [facility] Immature Granulocyte # (Auto) 0.02 10 3/uL 0.00-0.03 [facility] Platelet mean volume Auto (B ld) [Entitic vol]on 05-24-2024 Platelet mean volume (Bld) [Entitic vol] Platelet mean volume [Entitic volume] in Blood by Automated count 9.5-13.5 [facility] Platelets Auto (Bld) [#/Vol] on 05-24-2024 Platelets (Bld) [#/Vol] Platelets [#/volume] in Blood by Automated count 150-450 [facility] Prothrombin time (PT)on 05-11 PT Coag (PPP) [Time] Prothrombin time (PT) 9.0- 11.6 [facility] RBC Auto (Bld) [#/Vol]on RBC (Bld) [#/Vol] Erythrocytes [#/volu me] in Blood by Automated count Low 4.70-6.10 [facility] Serum or plasma anion gap de terminationon 05-24-2024 Anion gap [Moles/Vol] Serum or plasma an ion gap determination [facility] 36on 05-16-2024 36 Note faxed to the [facility] for surgery clearance. [facility] 36 They don't mention i t, but if needed can he hold Eliquis x2 days prior? [facility] 36 [facility] 36on 05-09-2024 36 Emerita, says remica de will start on the 05/26 would like further clarity on what it to be given states an order came in for rexulti should both medication be given? Pleas call Emerita with further clarity [phone] [facility] Orders Onlyon 05-02-2024 Orders Only [id number] Matt Wolff 1960 M Date Provider Department Center 05/02/2024 3554-RUDY HARVEY [facility] R[facility]UM [facility] Family History Family history unknown: Yes [facility] 29on 04-27-2024 29 Addended by: RUDY KINGSTON on: 04/27/2024 07:43 PM Modules accepted: Level of Service [facility] 36on 04-27-2024 36 Pt called back and w as schedule for today (04/27/24) with Dr. Choudhary @ 3:40 pm [facility] 36 Tried to call pt for the second to get him schedule for a knee injection today, no answer lvm [facility] Follow-Upon 04-27-2024 Follow-Up [facility] Orders Onlyon 04-26-2024 Orders Only [id number] Matt Wolff 1960 M Date Provider Department Center 04/26/2024 RUDY STEWART [facility] Family History Family history unknown: Yes [facility] 36on 04-25-2024 36 [facility] 36on 04-18-2024 36 Order faxed [facility] Orders Onlyon 04-18-2024 Orders Only [id number] Matt Wolff 1960 M Date Provider Department [place] 04/18/2024 RUDY STEWART [facility] R[facility] Family History Family history unknown: Yes [facility] 36on 04-14-2024 36 TC from [facility] RN placed call on hold and returned to call and call ended. TC to [facility]; LVM for a return call from Zuri HERBERT to discuss PT Infliximab order. [facility] 36 [facility] Telemedicineon 04-13-2024 Telemedicine [facility] 36on 04-11-2024 36 Last visit 01/27/2024 Upcoming 04/13/2024 [facility] Refillon 04-11-2024 Refill [facility] Orders Onlyon 03-03-2024 Orders Only [id number] Matt Wolff 1960 M Date Provider Department Center 03/03/2024 RUDY STEWART [facility] RHEUM [facility] Family History Family history unknown: Yes [facility] Alanine aminotransferase [En zymatic activity/volume] in Serum or PlasmaOrdered By: Rudy Harvey on 03-02-2024 ALT [Catalytic activity/Vol] 22 U/L Normal 7-52 [facility] Comment on above: Performed By: #### C BC, CMP #### [facility] [address] [place] [address] [place] #### IGG SUB #### [facility] , ALT [Catalytic activity/Vol] Alanine aminotransferase [Enzymatic activity/volume] in Serum or Plasma [facility] Albumin [Mass/volume] in Ser um or Plasma by Bromocresol green (BCG) dye binding methoOrdered By: Rudy Harvey on 03-02-2024 Albumin BCG dye [Mass/Vol] 3.5 g/dL 3.5-5.7 [facility] Albumin BCG dye [Mass/Vol] Albumin [Mass/volume] in Serum or Plasma by Bromocresol green (BCG) dye binding metho 3.5-5.7 [facility] Alkaline phosphatase [Enzyma tic activity/volume] in Serum or PlasmaOrdered By: Rudy Harvey on 03-02-2024 ALP [Catalytic activity/Vol] 57 U/L Normal [facility] Comment on above: Result Comment: PERF ORMED BY: [place] [address] PATHOLOGIST [employer] JULIANNE VELASQUEZ M.D. Performed By: #### C BC, CMP #### [facility] [address] [place] [address] [place] #### IGG SUB #### [facility] , ALP [Catalytic activity/Vol] Alkaline phosphatase [Enzymatic activity/volume] in Serum or Plasma [facility] Aspartate aminotransferase [ Enzymatic activity/volume] in Serum or PlasmaOrdered By: Rudy Harvey on 03-02-2024 AST [Catalytic activity/Vol] 20 U/L Normal [facility] Comment on above: Performed By: #### C BC, CMP #### [facility] [address] [place] [address] [place] #### IGG SUB #### [facility] , AST [Catalytic activity/Vol] Aspartate aminotransferase [Enzymatic activity/volume] in Serum or Plasma [facility] Automated basophil %Ordered By: Rudy Harvey on 03-02-2024 Basophils/100 WBC (Bld) 0.8 % Normal . [facility] Comment on above: Performed By: #### C BC, CMP #### [facility] [address] [place] [address] [place] #### IGG SUB #### [facility] , Automated basophil countOrde red By: Rudy Harvey on 03-02-2024 Basophils (Bld) [#/Vol] 0.0 10*3/uL Normal 0.0-0.2 [facility] Comment on above: Result Comment: PERF ORMED BY: [place] [address] PATHOLOGIST [employer] JULIANNE VELASQUEZ M.D. Performed By: #### C BC, CMP #### [address] #### IGG SUB #### [facility] , Automated blood monocyte cou ntOrdered By: Rudy Harvey on 03-02-2024 Monocytes (Bld) [#/Vol] 0.7 10*3/uL Normal 0.0-0.8 [facility] Comment on above: Performed By: #### C BC, CMP #### [address] #### IGG SUB #### [facility] , Automated eosinophil %Ordere d By: Rudy Harvey on 03-02-2024 Eosinophils/100 WBC (Bld) 2.1 % Normal . [facility] Comment on above: Performed By: #### C BC, CMP #### [facility] [address] [place] [address] [place] #### IGG SUB #### [facility] , Automated eosinophil countOr dered By: Rudy Harvey on 03-02-2024 Eosinophils (Bld) [#/Vol] 0.1 10*3/uL Normal 0.0-0.45 [facility] Comment on above: Performed By: #### C BC, CMP #### [facility] [address] [place] [address] [place] #### IGG SUB #### [facility] , Automated monocyte %Ordered By: Rudy Harvey on 03-02-2024 Monocytes/100 WBC (Bld) 13.5 % Normal . [facility] Comment on above: Performed By: #### C BC, CMP #### [facility] [address] [place] [address] [place] #### IGG SUB #### [facility] , Automated neutrophil %Ordere d By: Rudy Harvey on 03-02-2024 Neutrophils/100 WBC (Bld) 52.2 % Normal . [facility] Comment on above: Performed By: #### C BC, CMP #### [place] [address] [place] #### IGG SUB #### [facility] , Basophils Auto (Bld) [#/Vol] Ordered By: Aya Katieyeromaine on 03-02-2024 Basophils (Bld) [#/Vol] Automated basophil count 0.0-0.2 [facility] Basophils/100 WBC Auto (Bld) Ordered By: Aya Abgalinayeromaine on 03-02-2024 Basophils/100 WBC (Bld) Automated basophil % . [facility] Bilirubin.total [Mass/volume ] in Serum or PlasmaOrdered By: Rudy Harvey on 03-02-2024 Bilirubin [Mass/Vol] 0.7 mg/dL Normal 0.3-1.0 [facility] Comment on above: Performed By: #### C BC, CMP #### [facility] [address] [place] [address] [place] #### IGG SUB #### [facility] , Bilirubin [Mass/Vol] Bilirubin.total [Mass/volume] in Serum or Plasma 0.3-1.0 [facility] Calcium [Mass/volume] in Ser um or PlasmaOrdered By: Rudy Harvey on 03-02-2024 Calcium [Mass/Vol] 8.7 mg/dL Normal 8.6-10.3 [facility] Comment on above: Performed By: #### C BC, CMP #### [facility] [address] [place] [address] [place] #### IGG SUB #### [facility] , Calcium [Mass/Vol] Calcium [Mass/volume ] in Serum or Plasma 8.6-10.3 [facility] Carbon dioxide, total [Moles /volume] in Serum or PlasmaOrdered By: Rudy Njevan on 03-02-2024 CO2 [Moles/Vol] 26.9 mmol/L Normal 21.0-31.0 [facility] Comment on above: Performed By: #### C BC, CMP #### [place] [address] [place] #### IGG SUB #### [facility] , CO2 [Moles/Vol] Carbon dioxide, tota l [Moles/volume] in Serum or Plasma 21.0-31.0 [facility] Chloride [Moles/volume] in S shantanu or PlasmaOrdered By: Rudy Momo on 03-02-2024 Chloride [Moles/Vol] 106 mmol/L Normal 98-107 [facility] Comment on above: Performed By: #### C BC, CMP #### [facility] [address] [place] [address] [place] #### IGG SUB #### [facility] , Chloride [Moles/Vol] Chloride [Moles/vol ume] in Serum or Plasma 98-107 [facility] Complete Blood Count Auto Di ffon 03-02-2024 Mean Corpuscular HGB Conc 33.6 g/dL Normal 32.5-35.6 [facility] Comment on above: Performed By: #### C BC, CMP #### [place] [address] [place] #### IGG SUB #### [facility] , NRBC% 0.2 /100{WBC} Normal 0-0.5 [facility] Comment on above: Performed By: #### C BC, CMP #### [facility] [address] [place] [address] [place] #### IGG SUB #### [facility] , Comprehensive Metabolic Pane brayan 03-02-2024 Albumin [Mass/Vol] 3.5 g/dL Normal 3.5-5.7 [facility] Comment on above: Performed By: #### C BC, CMP #### [facility] [address] [place] [address] [place] #### IGG SUB #### [facility] , GFR/1.73 sq M.predicted MDRD (S/P/Bld) [Vol rate/Area] 54.037 mL/min/{1.73_m2} Normal [facility] Comment on above: Performed By: #### C BC, CMP #### [facility] [address] [place] [address] [place] #### IGG SUB #### [facility] , Creatinine [Mass/volume] in Serum or PlasmaOrdered By: Rudy Harvey on 03-02-2024 Creatinine [Mass/Vol] 1.46 mg/dL High 0.70-1.30 [facility] Comment on above: Performed By: #### C BC, CMP #### [facility] [address] [place] [address] [place] #### IGG SUB #### [facility] , Creatinine [Mass/Vol] Creatinine [Mass/v olume] in Serum or Plasma High 0.70-1.30 [facility] Eosinophils Auto (Bld) [#/Vo l]Ordered By: Rudy Harvey on 03-02-2024 Eosinophils (Bld) [#/Vol] Automated eosinophil count 0.0-0.45 [facility] Eosinophils/100 WBC Auto (Bl d)Ordered By: Rudy Harvey on 03-02-2024 Eosinophils/100 WBC (Bld) Automated eosinophil % . [facility] Erythrocyte distribution wid th Auto (RBC) [Ratio]Ordered By: Rudy Harvey on 03-02-2024 Erythrocyte distribution width (RBC) [Ratio] Erythrocyte distribution width [Ratio] by Automated count High 12.0-14.8 [facility] Erythrocyte distribution wid th [Ratio] by Automated countOrdered By: Rudy Harvey on 03-02-2024 Erythrocyte distribution width (RBC) [Ratio] 20.6 % High 12.0-14.8 [facility] Comment on above: Performed By: #### C BC, CMP #### [facility] [address] [place] [address] [place] #### IGG SUB #### [facility] , Erythrocytes [#/volume] in B lood by Automated countOrdered By: Rudy Harvey on 03-02-2024 RBC (Bld) [#/Vol] 3.60 10*6/uL Low 3.90-5.60 [facility] Comment on above: Performed By: #### C BC, CMP #### [facility] [address] [place] [address] [place] #### IGG SUB #### [facility] , Globulin Calc (S) [Mass/Vol] Ordered By: Rudy Harvey on 03-02-2024 Globulin (S) [Mass/Vol] Serum globulin measurement by calculation (mass/volume) [facility] Glucose [Mass/volume] in Ser um or PlasmaOrdered By: Rudy Harvey on 03-02-2024 Glucose [Mass/Vol] 129 mg/dL High 70-100 [facility] Comment on above: ADA recommended refe rence rangeRandom Glucose Reference Range is dependent on time and content of last meal. Glucose of more than 200 mg/dL in a nonstressed, ambulatory subject supports the diagnosis of Diabetes Mellitus. Result Comment: [facility] Glucose Reference Range is dependent on time and content of last meal. Glucose of more than 200 mg/dL in a nonstressed, ambulatory subject supports the diagnosis of Diabetes Mellitus. ADA recommended reference range Performed By: #### C BC, CMP #### [facility] [address] [place] [address] [place] #### IGG SUB #### [facility] , Glucose [Mass/Vol] Glucose [Mass/volume ] in Serum or Plasma High 70-100 [facility] Comment on above: ADA recommended refe rence rangeRandom Glucose Reference Range is dependent on time and content of last meal. Glucose of more than 200 mg/dL in a nonstressed, ambulatory subject supports the diagnosis of Diabetes Mellitus. Hematocrit Auto (Bld) [Volum e fraction]Ordered By: Rudy Harvey on 03-02-2024 Hematocrit (Bld) [Volume fraction] Hematocrit [Volume Fraction] of Blood by Automated count Low 38.8-50.0 [facility] Hematocrit [Volume Fraction] of Blood by Automated countOrdered By: Rudy Harvey on 03-02-2024 Hematocrit (Bld) [Volume fraction] 31.7 % Low 38.8-50.0 [facility] Comment on above: Performed By: #### C BC, CMP #### [facility] [address] [place] [address] [place] #### IGG SUB #### [facility] , Hemoglobin [Mass/volume] in BloodOrdered By: Rudy Harvey on 03-02-2024 Hemoglobin (Bld) [Mass/Vol] 10.7 g/dL Low 13.0-17.0 [facility] Comment on above: Performed By: #### C BC, CMP #### [facility] [address] [place] [address] [place] #### IGG SUB #### [facility] , Hemoglobin (Bld) [Mass/Vol] Hemoglobin [Mass/volume] in Blood Low 13.0-17.0 [facility] IgG [Mass/volume] in Serum o r PlasmaOrdered By: Rudy Harvey on 03-02-2024 IgG [Mass/Vol] 925 mg/dL 603-1613 [facility] IgG subclass 1 measurementOr dered By: Rudy Harvey on 03-02-2024 IgG subclass 1 (S) [Mass/Vol] 525 mg/dL 248-810 [facility] IgG subclass 1 (S) [Mass/Vol] IgG subclass 1 measurement 248-810 [facility] IgG subclass 2 measurementOr dered By: Rudy Harvey on 03-02-2024 IgG subclass 2 (S) [Mass/Vol] 258 mg/dL 130-555 [facility] IgG subclass 2 (S) [Mass/Vol] IgG subclass 2 measurement 130-555 [facility] IgG subclass 3 measurementOr dered By: Rudy Harvey on 03-02-2024 IgG subclass 3 (S) [Mass/Vol] 44 mg/dL 15-102 [facility] IgG subclass 3 (S) [Mass/Vol] IgG subclass 3 measurement 15-102 [facility] IgG subclass 4 measurementOr dered By: Rudy Harvey on 03-02-2024 Immunoglobulin G4 28 mg/dL 2-96 [facility] Comment on above: Performed at: - [address] Director: Paco Roa PhD, Phone: [phone] IgG, Subclasses (1-4)on 02-09 IgG, Subclass 1 525 mg/dL Normal 248-810 [facility] Comment on above: Performed By: #### C BC, CMP #### [facility] [address] [place] [address] [place] #### IGG SUB #### [facility] , IgG, Subclass 2 258 mg/dL Normal 130-555 [facility] Comment on above: Performed By: #### C BC, CMP #### [facility] [address] [place] [address] [place] #### IGG SUB #### [facility] , IgG, Subclass 3 44 mg/dL Normal 15-102 [facility] Comment on above: Performed By: #### C BC, CMP #### [facility] [address] [place] [address] [place] #### IGG SUB #### [facility] , IgG, Subclass 4 28 mg/dL Normal 2-96 [facility] Comment on above: Result Comment: Perf ormed at: - [facility] [id number] [place], [place] [id number] Trades Helper: Paco Roa PhD, Phone: [phone] PERFORMED BY: [place] [address] PATHOLOGIST PAINT CREW SUPERVISOR JULIANNE VELASQUEZ M.D. Performed By: #### C BC, CMP #### [place] [address] [place] #### IGG SUB #### [facility] , Immunoglobulin G 925 mg/dL Normal 603-1613 [facility] Comment on above: Performed By: #### C BC, CMP #### [place] [address] [place] #### IGG SUB #### [facility] , Leukocytes [#/volume] correc alicia for nucleated erythrocytes in Blood by Automated counOrdered By: Rudy Harvey on 03-02-2024 WBC corrected for nucl RBC Auto (Bld) [#/Vol] 5.4 10*3/uL 4.1-10.5 [facility] WBC corrected for nucl RBC Auto (Bld) [#/Vol] Leukocytes [#/volume] corrected for nucleated erythrocytes in Blood by Automated coun 4.1-10.5 [facility] Leukocytes [#/volume] in Blo od by Automated countOrdered By: Rudy Harvey on 03-02-2024 WBC (Bld) [#/Vol] 5.4 10*3/uL Normal 4.1-10.5 [facility] Comment on above: Performed By: #### C BC, CMP #### [place] [address] [place] #### IGG SUB #### [facility] , Lymphocytes Auto (Bld) [#/Vo l]Ordered By: Rudy Harvey on 03-02-2024 Lymphocytes (Bld) [#/Vol] Lymphocytes [#/volume] in Blood by Automated count 1.00-4.8 [facility] Lymphocytes [#/volume] in Bl ood by Automated countOrdered By: uRdy Harvey on 03-02-2024 Lymphocytes (Bld) [#/Vol] 1.7 10*3/uL Normal 1.00-4.8 [facility] Comment on above: Performed By: #### C BC, CMP #### [place] [address] [place] #### IGG SUB #### [facility] , Lymphocytes/100 WBC Auto (Bl d)Ordered By: Rudy Harvey on 03-02-2024 Lymphocytes/100 WBC (Bld) Lymphocytes/100 leukocytes in Blood by Automated count . [facility] Lymphocytes/100 leukocytes i n Blood by Automated countOrdered By: Rudy Harvey on 03-02-2024 Lymphocytes/100 WBC (Bld) 31.4 % Normal . [facility] Comment on above: Performed By: #### C BC, CMP #### [facility] [address] [place] [address] [place] #### IGG SUB #### [facility] , MCH Auto (RBC) [Entitic mass ]Ordered By: Rudy Harvey on 03-02-2024 MCH (RBC) [Entitic mass] MCH [Entitic mass] by Automated count 27.5-35.2 [facility] MCH [Entitic mass] by Automa alicia countOrdered By: Rudy Harvey on 03-02-2024 MCH (RBC) [Entitic mass] 29.6 pg Normal 27.5-35.2 [facility] Comment on above: Performed By: #### C BC, CMP #### [place] [address] [place] #### IGG SUB #### [facility] , MCHC Auto (RBC) [Mass/Vol]Or dered By: Rudy Harvey on 03-02-2024 MCHC (RBC) [Mass/Vol] 33.6 g/dL 32.5-35.6 [facility] MCHC (RBC) [Mass/Vol] MCHC [Mass/volume] by Automated count 32.5-35.6 [facility] MCV Auto (RBC) [Entitic vol] Ordered By: Rudy Harvey on 03-02-2024 MCV (RBC) [Entitic vol] MCV [Entitic volume] by Automated count 83.5-101 [facility] MCV [Entitic volume] by Auto mated countOrdered By: Rudy Harvey on 03-02-2024 MCV (RBC) [Entitic vol] 88.1 fL Normal 83.5-101 [facility] Comment on above: Performed By: #### C BC, CMP #### [facility] [address] [place] [address] [place] #### IGG SUB #### [facility] , Monocytes Auto (Bld) [#/Vol] Ordered By: Rudy Harvey on 03-02-2024 Monocytes (Bld) [#/Vol] Automated blood monocyte count 0.0-0.8 [facility] Monocytes/100 WBC Auto (Bld) Ordered By: Rudy Harvey on 03-02-2024 Monocytes/100 WBC (Bld) Automated monocyte % . [facility] Neutrophils Auto (Bld) [#/Vo l]Ordered By: Rduy Harvye on 03-02-2024 Neutrophils (Bld) [#/Vol] Neutrophils [#/volume] in Blood by Automated count 1.8-7.7 [facility] Neutrophils [#/volume] in Bl ood by Automated countOrdered By: Rudy Harvey on 03-02-2024 Neutrophils (Bld) [#/Vol] 2.8 10*3/uL Normal 1.8-7.7 [facility] Comment on above: Performed By: #### C BC, CMP #### [facility] [address] [place] [address] [place] #### IGG SUB #### [facility] , Neutrophils/100 WBC Auto (Bl d)Ordered By: Rudy Harvey on 03-02-2024 Neutrophils/100 WBC (Bld) Automated neutrophil % . [facility] No Panel InformationOrdered By: Rudy Harvey on 03-02-2024 Estimated GFR (CKD-EPI) 54.037 mL/Min [facility] Creatinine Clearance (Chem N/A [facility] Nucleated erythrocytes [Pres ence] in Blood by Automated countOrdered By: Rudy Harvey on 03-02-2024 Nucleated RBC Auto Ql (Bld) 0.2 /100{WBC} 0-0.5 [facility] Nucleated RBC Auto Ql (Bld) Nucleated erythrocytes [Presence] in Blood by Automated count 0-0.5 [facility] Orders Onlyon 03-02-2024 Orders Only [id number] Matt Wolff 1960 M Date Provider Department Center 03/02/2024 [id number], HISTORICAL RHC RHEUM [facility] Family History Family history unknown: Yes Normal [facility] Platelet mean volume Auto (B ld) [Entitic vol]Ordered By: Rudy Harvey on 03-02-2024 Platelet mean volume (Bld) [Entitic vol] Platelet mean volume [Entitic volume] in Blood by Automated count 6.6-10.1 [facility] Platelet mean volume [Entiti c volume] in Blood by Automated countOrdered By: Rudy Harvey on 03-02-2024 Platelet mean volume (Bld) [Entitic vol] 8.9 fL Normal 6.6-10.1 [facility] Comment on above: Performed By: #### C BC, CMP #### [facility] [address] [place] [address] [place] #### IGG SUB #### [facility] , Platelets Auto (Bld) [#/Vol] Ordered By: Rudy Harvey on 03-02-2024 Platelets (Bld) [#/Vol] Platelets [#/volume] in Blood by Automated count 150-450 [facility] Platelets [#/volume] in Bloo d by Automated countOrdered By: Rudy Harvey on 03-02-2024 Platelets (Bld) [#/Vol] 219 10*3/uL Normal 150-450 [facility] Comment on above: Performed By: #### C BC, CMP #### [facility] [address] [place] [address] [place] #### IGG SUB #### [facility] , Potassium [Moles/volume] in Serum or PlasmaOrdered By: Rudy Harvey on 03-02-2024 Potassium [Moles/Vol] 4.3 mmol/L Normal 3.5-5.1 [facility] Comment on above: Performed By: #### C BC, CMP #### [facility] [address] [place] [address] [place] #### IGG SUB #### [facility] , Potassium [Moles/Vol] Potassium [Moles/v olume] in Serum or Plasma 3.5-5.1 [facility] Protein [Mass/volume] in Ser um or PlasmaOrdered By: Rudy Harvey on 03-02-2024 Protein [Mass/Vol] 6.0 g/dL Low 6.4-8.9 [facility] Comment on above: Performed By: #### C BC, CMP #### [facility] [address] [place] [address] [place] #### IGG SUB #### [facility] , Protein [Mass/Vol] Protein [Mass/volume ] in Serum or Plasma Low 6.4-8.9 [facility] RBC Auto (Bld) [#/Vol]Ordere d By: Rudy Harvey on 03-02-2024 RBC (Bld) [#/Vol] Erythrocytes [#/volu me] in Blood by Automated count Low 3.90-5.60 [facility] Serum globulin measurement b y calculation (mass/volume)Ordered By: Rudy Harvey on 03-02-2024 Globulin (S) [Mass/Vol] 2.5 g/dL Normal [facility] Comment on above: Performed By: #### C BC, CMP #### [facility] [address] [place] [address] [place] #### IGG SUB #### [facility] , Serum or plasma IgG measurem ent (mass/volume)Ordered By: Rudy Harvey on 03-02-2024 IgG [Mass/Vol] IgG [Mass/volume] in Serum or Plasma 603-8183 [facility] Serum or plasma albumin/glob ulin mass ratioOrdered By: Rudy Harvey on 03-02-2024 Albumin/Globulin [Mass ratio] 1.4 {ratio} [facility] Comment on above: Performed By: #### C BC, CMP #### [place] [address] [place] #### IGG SUB #### [facility] , Albumin/Globulin [Mass ratio] Serum or plasma albumin/globulin mass ratio [facility] Serum or plasma anion gap de terminationOrdered By: Rudy Harvey on 03-02-2024 Anion gap [Moles/Vol] 10.4 mmol/L Normal 6.0-15.0 [facility] Comment on above: Performed By: #### C BC, CMP #### [place] [address] [place] #### IGG SUB #### [facility] , Anion gap [Moles/Vol] Serum or plasma an ion gap determination 6.0-15.0 [facility] Sodium [Moles/volume] in Ser um or PlasmaOrdered By: Rudy Harvey on 03-02-2024 Sodium [Moles/Vol] 139 mmol/L Normal 136-145 [facility] Comment on above: Performed By: #### C BC, CMP #### [facility] [address] [place] [address] [place] #### IGG SUB #### [facility] , Sodium [Moles/Vol] Sodium [Moles/volume ] in Serum or Plasma 136-145 [facility] Urea nitrogen [Mass/volume] in Serum or PlasmaOrdered By: Rudy Harvey on 03-02-2024 Urea nitrogen [Mass/Vol] 28 mg/dL [facility] Comment on above: Performed By: #### C BC, CMP #### [facility] [address] [place] [address] [place] #### IGG SUB #### [facility] , Urea nitrogen [Mass/Vol] Urea nitrogen [Mass/volume] in Serum or Plasma [facility] [address] WBC Auto (Bld) [#/Vol]Ordere d By: Rudy Harvey on 03-02-2024 WBC (Bld) [#/Vol] Leukocytes [#/volume ] in Blood by Automated count 4.1-10.5 [facility] 37on 02-23-2024 37 Avoid live vaccines during treatment Notify doctor of any new or recurrent infections [facility] 37on 02-09-2024 37 Call provider for fe shi or infections or being treated with antibiotics for active infection. Then also call [facility] to inform us, may need to delay infliximab treatment. [facility] Infusionon 02-09-2024 Infusion [id number] Matt Wolff 1960 M Date Provider Department Center 02/09/2024 [id number] CHAIR [facility] Family History Family history unknown: Yes [facility] 36on 02-03-2024 36 Called pt back to up dated him and pt stated that [facility] got him Scheduled for 02/09/24 to start his Infusions. Pt Labs from [facility] was faxed and scanned into pt media inside pt chart. [facility] 36 [facility] Telephoneon 02-03-2024 Telephone [id number] Matt Wolff 1960 M Date Provider Department Center 02/03/2024 Sanju-THAIS DÍAZ [facility] RHEUM [facility] Family History Family history unknown: Yes [facility] Orders Onlyon 02-02-2024 Orders Only [id number] Matt Wolff Francisco J 1960 M Date Provider Department Center 02/02/2024 TERRELL SYKES [facility] Family History Family history unknown: Yes [facility] Follow-Upon 01-27-2024 Follow-Up [facility] 36on 01-20-2024 36 Pts brother called t o cancel appointment today stating that his brother fell while using a lift and has been admitted to the hospital for observation due to blood thinner medication. Normal [facility] Orders Onlyon 01-20-2024 Orders Only [id number] Matt Wolff Francisco J 1960 M Date Provider Department Center 01/20/2024 TERRELL SYKES [facility] Family History Family history unknown: Yes Normal [facility] Hepatitis B virus surface Ag [Presence] in Serum or Plasma by Immunoassayon 01-19-2024 HBV surface Ag IA Ql Negative Negative [facility] Myeloperoxidase Ab [Units/vo lume] in Serum by Immunoassayon 01-19-2024 Myeloperoxidase Ab IA Qn (S) <0.2 units 0.0-0.9 [facility] No Panel Informationon 01-18 Atypical p-ANCA <1:20 titer Neg:<1:20 [facility] Comment on above: The atypical pANCA p attern has been observed in asignificant percentage of patients with ulcerative colitis,primary sclerosing cholangitis and autoimmune hepatitis.Performed at: - [facility] [address] [id number] Director: Alice Matthews MD, Phone: [phone] at: [employer] - [facility] [address] [id number] Director: Paco Roa PhD, Phone: [phone] Hepatitis B Core IgM Antibody Negative Negative [facility] Comment on above: Performed at: [employer] [facility] [employer] [facility] [address] [id number] Director: Paco Roa PhD, Phone: [phone] Miscellaneous Test COMMENT . [facility] Comment on above: Test Ordered: [id number] Hep Be AbHep Be Ab Note: CB Non Reactive Reference Range: NegativePerformed at: CB - [facility] [id number] [place], [place] [id number] Director: aPco Roa PhD, Phone: [phone] Perinuclear ANCA (p-ANCA) Antibody <1:20 titer Neg:<1:20 [facility] Comment on above: The presence of posi tive fluorescence exhibiting P-ANCA orC- ANCA patterns alone is not specific for the diagnosis ofWegener's Granulomatosis (WG) or microscopic polyangiitis.Decisions about treatment should not be based solely onANCA IFA results. The International ANCA Group Consensusrecommends follow up testing of positive sera with both IA-3 and MPO-ANCA enzyme immunoassays. As many as 5% serumsamples are positive only by EIA. Ref. AM J Clin Extult4804;111:507-513. Proteinase 3 Ab [Units/volum e] in Serum by Immunoassayon 01-19-2024 Proteinase 3 Ab IA Qn (S) <0.2 units 0.0-0.9 [facility] Serum classic neutrophil cyt oplasmic antibody titer by immunofluorescenceon 01-19-2024 Neutrophil cytoplasmic Ab.classic IF (S) [Titer] <1:20 titer Neg:<1:20 [facility] 36on 01-07-2024 36 RN calling PT to [facility] to fax lab orders to. PT states it is [facility], [place], [place]. [facility] fax: [phone]. Lab orders faxed. nish Normal [facility] Orders Onlyon 01-07-2024 Orders Only [id number] Matt Wolff 1960 M Date Provider Department Center 01/07/2024 RUDY STEWART [facility] RHEUM [facility] Family History Family history unknown: Yes [facility] 36on 01-05-2024 36 Pt called states his speech therapy director would like Dr. Choudhary to call her. Dr. Murphy [phone] [facility] XR hand BI 3Von 12-28-2023 XR hand BI 3V [facility] [place] [address] XRay Report Signed Patient: Matt Waterman MR#: [id number] : 1960 Acct:[id number] Age/Sex: 63 / M ADM Date: 12/28/23 Loc: XD Room: Type: [facility] Attending Dr: Rudy Harvey MD Copies to: Rudy Harvey MD Ordering Provider: Rudy Harvey MD Date of Service: 12/28/23 XR/XR hand [...] Zaheer Nunez M.D.12/28/2023 1:07 PM Dictation Location: [place] [address] Transcribed By: [facility] 12/28/23 1307 Dictated By: Zaheer Nunez DO 12/28/23 1258 Signed By: 12/28/23 1307 Normal [facility] ANAon 12-22-2023 EMILI PATTERN Speckled Normal [facility] Comment on above: Performed By: #### L [id number] ####[facility] (BEAKER)[address] [place] [address] EMILI TITER 1:160 High <=1:40 [facility] Comment on above: Result Comment: Test performed using ANDRES IFA EMILI Hep-2 Test, a pre-standardized assay designed for the qualitative and semi-quantitative detection of antinuclear antibodies. Performed By: #### L [id number] ####[facility] (BEAKER)[address] [place] [address] ANGIOTENSIN CONVERTING ENZYM Gagandeep 12-22-2023 Angiotensin converting enzyme [Catalytic activity/Vol] 49 U/L Normal 16-85 [facility] Comment on above: Result Comment: Perf ormed By: [email or web address] [place], [place] [address]Jyawjbpbip Director: Kamaljit Bennett MD, PhDCLIA Number: [id number] Performed By: #### L [id number] ####[facility] ([facility] [place] [address] C-REACTIVE PROTEINon 024 C REACTIVE PROTEIN (MG/L) IN SER/PLAS 3.8 mg/L Normal 0.0-7.0 [facility] Comment on above: Performed By: #### L [id number] ####[facility] ([facility]AKER)[address] [place] [address] CYCLIC CITRUL PEPTIDE ANTIBO DY, IGG AND IGAon 12-22-2023 CYCLIC CITRULLINATED PEPTIDE AB, IGG/A 8 Units Normal 0-19 [facility] Comment on above: Result Comment: INTE RPRETIVE [...] results should be monitored andtesting repeated.Performed by [email or web address],[address] [place] [address] [email or web address], Carlyle Torrez MD, Lab. DirectorCLIA Number: [id number] Performed By: #### L [id number] ####[facility] ([facility])[address] [place] [address] HEPATITIS B CORE ANTIBODY, T OTALon 12-22-2023 HEPATITIS B VIRUS CORE AB (PRESENCE) IN SER/PLAS BY IMM Reactive Abnormal Nonreactive [facility] Comment on above: Performed By: #### L [id number] ####[facility] ([facility])[address] [place] [address] HEPATITIS B SURFACE ANTIGENo n 12-22-2023 HEPATITIS B VIRUS SURFACE AG PRESENCE IN SERUM Non-Reactive Normal Nonreactive [facility] Comment on above: Performed By: #### L [id number] ####[facility] ([facility]AKER)[address] [place] [address] HEPATITIS C ANTIBODYon 12-21 HEPATITIS C VIRUS AB PRESENCE IN SERUM Non-Reactive Normal Nonreactive [facility] Comment on above: Performed By: #### L [id number] ####[facility] ([facility])[address] [place] [address] HIV COMBO 4Gon 12-22-2023 HIV COMBO 4G Negative Normal Negative [facility] Comment on above: Performed By: #### L [id number] ####[facility] ([facility]AKER)[address] [place] [address] HLA B27 ANTIGENon 12-22-2023 HLA B27 Negative Normal [facility] Comment on above: Performed By: #### L [id number] ####[facility] TISSUE TYPING (HISTOTRAC)[address] [place] [address] [place] HLA B27 TEST METHOD SSOP by [employer] Normal [facility] Comment on above: Performed By: #### L [id number] ####[facility] TISSUE TYPING (HISTOTRAC)[address] [place] [address] [facility] SIGNED BY Signed by Mark headley CHT([facility]) MT(ASCP), Sterile Instrument Technician Transplant Immunology Normal [facility] Comment on above: Performed By: #### L [id number] ####[facility] TISSUE TYPING (HISTOTRAC)[address] [place] [address] [place] Orders Onlyon 12-22-2023 Orders Only [id number] Matt Wolff Francisco J 1960 M Date Provider Department [place] 12/22/2023 MICHAEL WEAVER [facility] RHEUM [facility] Family History Family history unknown: Yes Normal [facility] RHEUMATOID FACTORon 12-22-19 24 Rheumatoid factor Qn [IU]/mL Normal 0-20 [facility] Comment on above: Performed By: #### L [id number] ####[facility] ([facility] [place] [address] SEDIMENTATION RATEon 024 SEDIMENTATION RATE, ERYTHROCYTE 54 mm/hr High <=10 [facility] Comment on above: Performed By: #### L [id number] ####[facility] (BEAKER)[address] [place] [address] SJOGRENS SYNDROME ANTIBODIES A AND Bon 12-22-2023 DEBORAH TO SSA (RO) ANTIBODY Negative Normal Negative [facility] Comment on above: Performed By: #### L [id number] ####[facility] (BEAKER)[address] [place] [address] DEBORAH TO SSB (LA) ANTIBODY Negative Normal Negative [facility] Comment on above: Performed By: #### L [id number] ####[facility] (BEAKER)[address] [place] [address] URIC ACIDon 12-22-2023 Magnesium [Mass/Vol] 7.3 mg/dL Normal 4.4-7.6 [facility] Comment on above: Performed By: #### L [id number] ####[facility] (BEAKER)[address] [place] [address] Basophils Auto (Bld) [#/Vol] on 11-12-2023 Basophils (Bld) [#/Vol] 0.0 10 3/uL 0.0-0.1 [facility] Basophils/100 WBC Auto (Bld) on 11-12-2023 Basophils/100 WBC (Bld) 0.7 % 0.2-2.0 [facility] Eosinophils/100 WBC Auto (Bl d)on 11-12-2023 Eosinophils/100 WBC (Bld) 3.4 % 0.9-7.0 [facility] Erythrocyte distribution wid th Auto (RBC) [Ratio]on 11-12-2023 Erythrocyte distribution width (RBC) [Ratio] 15.3 % High 11.0-15.0 [facility] Estimated glomerular filtrat ion rate (GFR) non- Americanon 11-12-2023 GFR/1.73 sq M.predicted among non-blacks MDRD (S/P/Bld) [Vol rate/Area] mL/min/{1.73_m2} >=60 [facility] Globulin Calc (S) [Mass/Vol] on 11-12-2023 Globulin (S) [Mass/Vol] 3.8 g/dL [facility] Hematocrit Auto (Bld) [Volum e fraction]on 11-12-2023 Hematocrit (Bld) [Volume fraction] 29.7 % Low 42.0-54.0 [facility] Hemoglobin [Mass/volume] in Bloodon 11-12-2023 Hemoglobin (Bld) [Mass/Vol] 9.5 g/dL Low 14.0-18.0 [facility] Laboratory - Chemistry and C hemistry - challengeon 11-12-2023 Albumin [Mass/Vol] 2.7 g/dL Low 3.4-5.0 [facility] ALP [Catalytic activity/Vol] 75 U/L 46-116 [facility] ALT [Catalytic activity/Vol] 21 U/L 16-63 [facility] AST [Catalytic activity/Vol] 16 U/L 15-37 [facility] Bilirubin [Mass/Vol] 0.5 mg/dL 0.2-1.0 [facility] Calcium [Mass/Vol] 8.5 mg/dL 8.5-10.1 [facility] Chloride [Moles/Vol] 107 mmol/L 98-107 [facility] CO2 [Moles/Vol] 29.2 mmol/L 21.0-32.0 [facility] Creatinine [Mass/Vol] 0.99 mg/dL 0.70-1.30 [facility] GFR/1.73 sq M.predicted MDRD (S/P/Bld) [Vol rate/Area] mL/min/{1.73_m2} >=60 [facility] Glucose [Mass/Vol] 106 mg/dL 74-106 [facility] Potassium [Moles/Vol] 4.0 mmol/L 3.5-5.1 [facility] Protein [Mass/Vol] 6.5 g/dL 6.4-8.2 [facility] Sodium [Moles/Vol] 139 mmol/L 136-145 [facility] Urea nitrogen [Mass/Vol] 17.0 mg/dL 7.0-18.0 [facility] Urea nitrogen/Creatinine [Mass ratio] 17.2 mg/mg [facility] Laboratory - Hematology and Cell countson 11-12-2023 Immature granulocytes/100 WBC (Bld) 0.2 % 0.0-0.5 [facility] Leukocytes [#/volume] correc alicia for nucleated erythrocytes in Blood by Automated counon 11-12-2023 WBC corrected for nucl RBC Auto (Bld) [#/Vol] 5.9 10 3/uL 4.0-11.0 [facility] Lymphocytes Auto (Bld) [#/Vo l]on 11-12-2023 Lymphocytes (Bld) [#/Vol] 1.6 10 3/uL 1.2-3.8 [facility] Lymphocytes/100 WBC Auto (Bl d)on 11-12-2023 Lymphocytes/100 WBC (Bld) 26.7 % 20.5-60.0 [facility] MCH Auto (RBC) [Entitic mass ]on 11-12-2023 MCH (RBC) [Entitic mass] 26.7 pg 25.9-34.0 [facility] MCHC Auto (RBC) [Mass/Vol]on 11-12-2023 MCHC (RBC) [Mass/Vol] 32.0 g/dL 29.9-35.2 [facility] MCV Auto (RBC) [Entitic vol] on 11-12-2023 MCV (RBC) [Entitic vol] 83.4 fL 80.0-94.0 [facility] Monocytes Auto (Bld) [#/Vol] on 11-12-2023 Monocytes (Bld) [#/Vol] 0.5 10 3/uL 0.3-0.8 [facility] Monocytes/100 WBC Auto (Bld) on 11-12-2023 Monocytes/100 WBC (Bld) 7.8 % 1.7-12.0 [facility] Neutrophils Auto (Bld) [#/Vo l]on 11-12-2023 Neutrophils (Bld) [#/Vol] 3.6 10 3/uL 1.4-6.5 [facility] Neutrophils/100 WBC Auto (Bl d)on 11-12-2023 Neutrophils/100 WBC (Bld) 61.2 % 43.0-75.0 [facility] No Panel Informationon 11-11 Eosinophils # (Auto) 0.2 10 3/uL 0.0-0.7 [facility] Immature Granulocyte # (Auto) 0.01 10 3/uL 0.00-0.03 [facility] Vancomycin Level Trough 13.7 ug/mL 5.0-20.0 [facility] Platelet mean volume Auto (B ld) [Entitic vol]on 11-12-2023 Platelet mean volume (Bld) [Entitic vol] 11.4 fL 9.5-13.5 [facility] Platelets Auto (Bld) [#/Vol] on 11-12-2023 Platelets (Bld) [#/Vol] 224 10 3/uL 150-450 [facility] RBC Auto (Bld) [#/Vol]on RBC (Bld) [#/Vol] 3.56 10 6/uL Low 4.70-6.10 [facility] Serum or plasma albumin/glob ulin mass ratioon 11-12-2023 Albumin/Globulin [Mass ratio] 0.7 {ratio} [facility] Serum or plasma anion gap de terminationon 11-12-2023 Anion gap [Moles/Vol] 6.8 mmol/L [facility] Basophils Auto (Bld) [#/Vol] on 11-11-2023 Basophils (Bld) [#/Vol] 0.1 10 3/uL 0.0-0.1 [facility] Basophils/100 WBC Auto (Bld) on 11-11-2023 Basophils/100 WBC (Bld) 0.8 % 0.2-2.0 [facility] Eosinophils/100 WBC Auto (Bl d)on 11-11-2023 Eosinophils/100 WBC (Bld) 2.9 % 0.9-7.0 [facility] Erythrocyte distribution wid th Auto (RBC) [Ratio]on 11-11-2023 Erythrocyte distribution width (RBC) [Ratio] 15.3 % High 11.0-15.0 [facility] Estimated glomerular filtrat ion rate (GFR) non- Americanon 11-11-2023 GFR/1.73 sq M.predicted among non-blacks MDRD (S/P/Bld) [Vol rate/Area] mL/min/{1.73_m2} >=60 [facility] Globulin Calc (S) [Mass/Vol] on 11-11-2023 Globulin (S) [Mass/Vol] 4.0 g/dL [facility] Glucose mean value [Mass/vol ume] in Blood Estimated from glycated hemoglobinon 11-11-2023 Average glucose Estimated from glycated hemoglobin (Bld) [Mass/Vol] 166 mg/dL [facility] Hematocrit Auto (Bld) [Volum e fraction]on 11-11-2023 Hematocrit (Bld) [Volume fraction] 31.5 % Low 42.0-54.0 [facility] Hemoglobin [Mass/volume] in Bloodon 11-11-2023 Hemoglobin (Bld) [Mass/Vol] 9.8 g/dL Low 14.0-18.0 [facility] Brayan 11-11-2023 L Specimen: [id number] Received: 11/13/23 Status: KIMI Valeriano Num: [id number] Spec Type: Surgical Subm Dr: Kole Diaz,DPM, MS Tissues: A DIGIT AMPUTATION (LT 2ND TOE) Procedures: HE/2, Gross/Micro L4, Decalcification Age/ Patient Sex Location Account Attending Physician KiranShelliMatt Smalls 63/M LABELL [id number] Kole Diaz DPM, MS SPEC NUM: [id number] RECD: 11/13/23 STATUS: KIMI SKINNERJenn NUM: [id number] CHRIS: 11/11/[address] [facility] [address]: Kole Diaz DPM, MS ENTERED: 11/13/23 [facility] DR: Dimas,Lab SPEC TYPE: Surgical DEPT: THEO [...] A2 (full- thickness section of digit). Specimen: [id number] Received: 11/13/23 Status: KIMI Moscoso Num: [id number] Spec Type: Surgical Subm Dr: Kole Diaz DPM, MS Tissues: A DIGIT AMPUTATION (LT 2ND TOE) Procedures: HE/2, Gross/Micro L4, Decalcification Patient: SaldañaNaomiSlimMatt [id number] (Continued) Specimen: [id number] Received: 11/13/23 (Continued) Signed (signature on file) Birgit Rivera MD 11/16/23 1407 Specimen: [id number] Received: 11/13/23 Status: KIMI Moscoso Num: [id number] Spec Type: Surgical Subm Dr: Kole Diaz DPM, MS Tissues: A DIGIT AMPUTATION (LT 2ND TOE) Procedures: HE/2, Gross/Micro L4, Decalcification Patient: Matt Waterman [id number] (Continued) Specimen: [id number] Received: 11/13/23 (Continued) CPT Codes 94282 Specimen: [id number] Received: 11/13/23 Status: KIMI Moscoso Num: [id number] Spec Type: Surgical Subm Dr: Kole Diaz,HAMZAH, MS Tissues: A DIGIT AMPUTATION (LT 2ND TOE) Procedures: HE/2, Gross/Micro L4, Decalcification Patient: Matt Waterman [id number] (Continued) Signed (signature on file) Birgit Rivera MD 11/16/23 1407 Normal [facility] Laboratory - Chemistry and C hemistry - challengeon 11-11-2023 Albumin [Mass/Vol] 3.0 g/dL Low 3.4-5.0 [facility] ALP [Catalytic activity/Vol] 83 U/L 46-116 [facility] ALT [Catalytic activity/Vol] 22 U/L 16-63 [facility] AST [Catalytic activity/Vol] 18 U/L 15-37 [facility] Bilirubin [Mass/Vol] 0.5 mg/dL 0.2-1.0 [facility] Calcium [Mass/Vol] 9.3 mg/dL 8.5-10.1 [facility] Chloride [Moles/Vol] 106 mmol/L 98-107 [facility] CO2 [Moles/Vol] 27.8 mmol/L 21.0-32.0 [facility] Creatinine [Mass/Vol] 0.94 mg/dL 0.70-1.30 [facility] GFR/1.73 sq M.predicted MDRD (S/P/Bld) [Vol rate/Area] mL/min/{1.73_m2} >=60 [facility] Glucose [Mass/Vol] 98 mg/dL 74-106 [facility] Potassium [Moles/Vol] 3.9 mmol/L 3.5-5.1 [facility] Protein [Mass/Vol] 7.0 g/dL 6.4-8.2 [facility] Sodium [Moles/Vol] 141 mmol/L 136-145 [facility] Urea nitrogen [Mass/Vol] 16.0 mg/dL 7.0-18.0 [facility] Urea nitrogen/Creatinine [Mass ratio] 17.0 mg/mg [facility] Laboratory - Hematology and Cell countson 11-11-2023 HbA1c (Bld) [Mass fraction] 7.4 % High 4.5-6.2 [facility] Comment on above: ADA RECOMMENDED LIMI T 4.0 - 6.0ADA THERAPEUTIC TARGET < 7.0ACTION SUGGESTED> 7.0 Immature granulocytes/100 WBC (Bld) 0.2 % 0.0-0.5 [facility] Leukocytes [#/volume] correc alicia for nucleated erythrocytes in Blood by Automated counon 11-11-2023 WBC corrected for nucl RBC Auto (Bld) [#/Vol] 6.2 10 3/uL 4.0-11.0 [facility] Lymphocytes Auto (Bld) [#/Vo l]on 11-11-2023 Lymphocytes (Bld) [#/Vol] 1.8 10 3/uL 1.2-3.8 [facility] Lymphocytes/100 WBC Auto (Bl d)on 11-11-2023 Lymphocytes/100 WBC (Bld) 29.9 % 20.5-60.0 [facility] MCH Auto (RBC) [Entitic mass ]on 11-11-2023 MCH (RBC) [Entitic mass] 26.1 pg 25.9-34.0 [facility] MCHC Auto (RBC) [Mass/Vol]on 11-11-2023 MCHC (RBC) [Mass/Vol] 31.1 g/dL 29.9-35.2 [facility] MCV Auto (RBC) [Entitic vol] on 11-11-2023 MCV (RBC) [Entitic vol] 83.8 fL 80.0-94.0 [facility] Monocytes Auto (Bld) [#/Vol] on 11-11-2023 Monocytes (Bld) [#/Vol] 0.4 10 3/uL 0.3-0.8 [facility] Monocytes/100 WBC Auto (Bld) on 11-11-2023 Monocytes/100 WBC (Bld) 7.0 % 1.7-12.0 [facility] Neutrophils Auto (Bld) [#/Vo l]on 11-11-2023 Neutrophils (Bld) [#/Vol] 3.6 10 3/uL 1.4-6.5 [facility] Neutrophils/100 WBC Auto (Bl d)on 11-11-2023 Neutrophils/100 WBC (Bld) 59.2 % 43.0-75.0 [facility] No Panel InformationOrdered By: Kole Diaz on 11-11-2023 Acid Fast Culture [facility] Acid Fast Smear [facility] AFB Specimen Processing [facility] No Panel Informationon 11-10 Fungal Smear Result \R\ Fungus Stain [facility] Miscellaneous Test Comment See comment [facility] Comment on above: Specimen Source: TOE LT2 - Toe Left Second - Toe Lt 2nd - 607.100 Eosinophils # (Auto) 0.2 10 3/uL 0.0-0.7 [facility] Immature Granulocyte # (Auto) 0.01 10 3/uL 0.00-0.03 [facility] Platelet mean volume Auto (B ld) [Entitic vol]on 11-11-2023 Platelet mean volume (Bld) [Entitic vol] 11.3 fL 9.5-13.5 [facility] Platelets Auto (Bld) [#/Vol] on 11-11-2023 Platelets (Bld) [#/Vol] 243 10 3/uL 150-450 [facility] RBC Auto (Bld) [#/Vol]on RBC (Bld) [#/Vol] 3.76 10 6/uL Low 4.70-6.10 [facility] Serum or plasma albumin/glob ulin mass ratioon 11-11-2023 Albumin/Globulin [Mass ratio] 0.8 {ratio} [facility] Serum or plasma anion gap de terminationon 11-11-2023 Anion gap [Moles/Vol] 11.1 mmol/L [facility] Basophils Auto (Bld) [#/Vol] on 11-10-2023 Basophils (Bld) [#/Vol] 0.0 10 3/uL 0.0-0.1 [facility] Basophils/100 WBC Auto (Bld) on 11-10-2023 Basophils/100 WBC (Bld) 0.6 % 0.2-2.0 [facility] Eosinophils/100 WBC Auto (Bl d)on 11-10-2023 Eosinophils/100 WBC (Bld) 1.3 % 0.9-7.0 [facility] Erythrocyte distribution wid th Auto (RBC) [Ratio]on 11-10-2023 Erythrocyte distribution width (RBC) [Ratio] 15.2 % High 11.0-15.0 [facility] Estimated glomerular filtrat ion rate (GFR) non- Americanon 11-10-2023 GFR/1.73 sq M.predicted among non-blacks MDRD (S/P/Bld) [Vol rate/Area] mL/min/{1.73_m2} >=60 [facility] Globulin Calc (S) [Mass/Vol] on 11-10-2023 Globulin (S) [Mass/Vol] 4.0 g/dL [facility] Hematocrit Auto (Bld) [Volum e fraction]on 11-10-2023 Hematocrit (Bld) [Volume fraction] 29.7 % Low 42.0-54.0 [facility] Hemoglobin [Mass/volume] in Bloodon 11-10-2023 Hemoglobin (Bld) [Mass/Vol] 9.4 g/dL Low 14.0-18.0 [facility] INR in Platelet poor plasma by Coagulation assayon 11-10-2023 INR Coag (PPP) [Relative time] 1.00 {INR} [facility] Comment on above: DESIRED INR:2.0-3.0 CONDITIONS NOT LISTED BELOW2.5-3.5 FOR PROSTHETIC HEART VALVE REPLACEMENT2.5-3.5 RECURRENT THROMBOSIS Laboratory - Chemistry and C hemistry - challengeon 11-10-2023 Albumin [Mass/Vol] 3.0 g/dL Low 3.4-5.0 [facility] ALP [Catalytic activity/Vol] 79 U/L 46-116 [facility] ALT [Catalytic activity/Vol] 24 U/L 16-63 [facility] AST [Catalytic activity/Vol] 19 U/L 15-37 [facility] Bilirubin [Mass/Vol] 0.5 mg/dL 0.2-1.0 [facility] Calcium [Mass/Vol] 8.5 mg/dL 8.5-10.1 [facility] Chloride [Moles/Vol] 104 mmol/L 98-107 [facility] CO2 [Moles/Vol] 29.3 mmol/L 21.0-32.0 [facility] Creatinine [Mass/Vol] 0.95 mg/dL 0.70-1.30 [facility] GFR/1.73 sq M.predicted MDRD (S/P/Bld) [Vol rate/Area] mL/min/{1.73_m2} >=60 [facility] Glucose [Mass/Vol] 110 mg/dL High 74-106 [facility] Lactate [Moles/Vol] 0.8 mmol/L 0.4-2.0 [facility] Natriuretic peptide B (Bld) [Mass/Vol] 53.0 pg/mL <=900.0 [facility] Potassium [Moles/Vol] 4.1 mmol/L 3.5-5.1 [facility] Protein [Mass/Vol] 7.0 g/dL 6.4-8.2 [facility] Sodium [Moles/Vol] 140 mmol/L 136-145 [facility] Urea nitrogen [Mass/Vol] 19.0 mg/dL High 7.0-18.0 [facility] Urea nitrogen/Creatinine [Mass ratio] 20.0 mg/mg [facility] Laboratory - Hematology and Cell countson 11-10-2023 Immature granulocytes/100 WBC (Bld) 0.3 % 0.0-0.5 [facility] Leukocytes [#/volume] correc alicia for nucleated erythrocytes in Blood by Automated counon 11-10-2023 WBC corrected for nucl RBC Auto (Bld) [#/Vol] 7.1 10 3/uL 4.0-11.0 [facility] Lymphocytes Auto (Bld) [#/Vo l]on 11-10-2023 Lymphocytes (Bld) [#/Vol] 2.0 10 3/uL 1.2-3.8 [facility] Lymphocytes/100 WBC Auto (Bl d)on 11-10-2023 Lymphocytes/100 WBC (Bld) 28.5 % 20.5-60.0 [facility] MCH Auto (RBC) [Entitic mass ]on 11-10-2023 MCH (RBC) [Entitic mass] 26.3 pg 25.9-34.0 [facility] MCHC Auto (RBC) [Mass/Vol]on 11-10-2023 MCHC (RBC) [Mass/Vol] 31.6 g/dL 29.9-35.2 [facility] MCV Auto (RBC) [Entitic vol] on 11-10-2023 MCV (RBC) [Entitic vol] 83.0 fL 80.0-94.0 [facility] Monocytes Auto (Bld) [#/Vol] on 11-10-2023 Monocytes (Bld) [#/Vol] 0.5 10 3/uL 0.3-0.8 [facility] Monocytes/100 WBC Auto (Bld) on 11-10-2023 Monocytes/100 WBC (Bld) 7.0 % 1.7-12.0 [facility] Neutrophils Auto (Bld) [#/Vo l]on 11-10-2023 Neutrophils (Bld) [#/Vol] 4.4 10 3/uL 1.4-6.5 [facility] Neutrophils/100 WBC Auto (Bl d)on 11-10-2023 Neutrophils/100 WBC (Bld) 62.3 % 43.0-75.0 [facility] No Panel InformationOrdered By: Teri Waters on 11-10-2023 Blood Culture 2 [facility] Blood Culture 1 [facility] No Panel Informationon 11-09 C-Reactive Protein, Quantitative <0.50 mg/dL <=0.50 [facility] Eosinophils # (Auto) 0.1 10 3/uL 0.0-0.7 [facility] Immature Granulocyte # (Auto) 0.02 10 3/uL 0.00-0.03 [facility] Venous Blood Partial Pressure CO2 37.7 mm[Hg] Low 40.0-52.0 [facility] Venous Blood pH 7.416 7.330-7.430 [facility] Platelet mean volume Auto (B ld) [Entitic vol]on 11-10-2023 Platelet mean volume (Bld) [Entitic vol] 11.3 fL 9.5-13.5 [facility] Platelets Auto (Bld) [#/Vol] on 11-10-2023 Platelets (Bld) [#/Vol] 231 10 3/uL 150-450 [facility] Prothrombin time (PT)on PT Coag (PPP) [Time] 10.6 s 9.0-11.6 [facility] RBC Auto (Bld) [#/Vol]on RBC (Bld) [#/Vol] 3.58 10 6/uL Low 4.70-6.10 [facility] Serum or plasma albumin/glob ulin mass ratioon 11-10-2023 Albumin/Globulin [Mass ratio] 0.8 {ratio} [facility] Serum or plasma anion gap de terminationon 11-10-2023 Anion gap [Moles/Vol] 10.8 mmol/L [facility] Serum procalcitonin measurem enton 11-10-2023 Procalcitonin [Mass/Vol] ng/mL 0.00-0.50 [facility] BASIC METABOLIC PANELon 10-09 Anion gap [Moles/Vol] 10 mmol/L Normal 7-20 [facility] Comment on above: Performed By: #### L [id number] ####[facility] (BEAKER)[address] [place] [address] Calcium [Mass/Vol] 9.4 mg/dL Normal 8.6-10.3 [facility] Comment on above: Performed By: #### L [id number] ####[facility] (BEAKER)[address] [place] [address] Chloride [Moles/Vol] 103 mmol/L Normal 98-107 [facility] Comment on above: Performed By: #### L [id number] ####[facility] ([facility])[address] [facility] [place] [address] CO2 [Moles/Vol] 27 mmol/L Normal 21-31 [facility] Comment on above: Performed By: #### L [id number] ####[facility] ([facility])[address] [place] [address] Creatinine [Mass/Vol] 1.14 mg/dL Normal 0.70-1.30 [facility] Comment on above: Performed By: #### L [id number] ####[facility] ([facility])[address] [place] [address] GLOMERULAR FILTRATION RATE ML/MIN/1.73 SQ M.PREDICTED 72.7 mL/min/1.73m*2 Normal >60.0 [facility] Comment on above: Result Comment: [facility]???s estimated glomerular filtration rate (eGFR) will no [...] of individuals. Performed By: #### L [id number] ####[facility] ([facility])[address] [place] [address] Glucose [Mass/Vol] 110 mg/dL High 70-100 [facility] Comment on above: Performed By: #### L [id number] ####[facility] ([facility])[address] [place] [address] Potassium [Moles/Vol] 4.2 mmol/L Normal 3.5-5.1 [facility] Comment on above: Performed By: #### L [id number] ####[facility] ([facility])[address] [place] [address] Sodium [Moles/Vol] 136 mmol/L Normal 136-145 [facility] Comment on above: Performed By: #### L [id number] ####[facility] ([facility] [address] Urea nitrogen [Mass/Vol] 23 mg/dL Normal 7-25 [facility] Comment on above: Performed By: #### L [id number] ####[facility] ([facility])[address] [address] UREA NITROGEN/CREATININE (MASS RATIO) IN SER/PLAS 20.2 Normal [facility] Comment on above: Performed By: #### L [id number] ####[facility] ([facility])[address] [place] [address] CBCon 10-20-2023 Erythrocyte distribution width (RBC) [Ratio] 15.4 % High 11.5-15.0 [facility] Comment on above: Performed By: #### L [id number] ####[facility] ([facility])[address] [place] [address] ERYTHROCYTE MEAN CORPUSCULAR HEMOGLOBIN CONCENTRATION (G/DL) BY AUTOMATED 31.4 g/dL Low 32.0-35.0 [facility] Comment on above: Performed By: #### L [id number] ####[facility] ([facility])[address] [place] [address] Hematocrit (Bld) [Volume fraction] 34.7 % Low 39.0-55.0 [facility] Comment on above: Performed By: #### L [id number] ####[facility] ([facility] [place] [address] Hemoglobin (Bld) [Mass/Vol] 10.9 g/dL Low 13.0-17.0 [facility] Comment on above: Performed By: #### L [id number] ####[facility] (BEAKER)[address] [place] [address] MCH (RBC) [Entitic mass] 26.0 pg Low 27.0-33.0 [facility] Comment on above: Performed By: #### L [id number] ####[facility] ([facility])[address] [place] [address] MCV (RBC) [Entitic vol] 82.8 fL Normal 82.0-98.0 [facility] Comment on above: Performed By: #### L [id number] ####[facility] ([facility])[address] [place] [address] PLATELETS (10*3/UL) IN BLOOD AUTOMATED COUNT 259 10*3/uL Normal 150-400 [facility] Comment on above: Performed By: #### L [id number] ####[facility] ([facility])[address] [place] [address] RBC (Bld) [#/Vol] 4.19 10*6/uL Low 4.20-5.70 [facility] Comment on above: Performed By: #### L [id number] ####[facility] ([facility])[address] [place] [address] WBC (Bld) [#/Vol] 7.69 10*3/uL Normal 4.00-10.60 [facility] Comment on above: Performed By: #### L [id number] ####[facility] ([facility])[address] [place] [address] Follow-Upon 10-20-2023 Follow-Up Normal [facility] Labon 10-20-2023 Lab [id number] Matt Wolff 1960 M Date Provider Department [place] 10/20/2023 2245-[facility] OPD LAB RESOURCE [facility] PA Medical C Family History Family history unknown: Yes [facility] 3610-06-2023 36 Normal [facility] 09-29-2023 29 Addended by: HOUSTON RIDDLE on: 09/29/2023 02:10 PM Modules accepted: Orders Normal [facility] 29 Addended by: YULIANA ARANGO on: 09/29/2023 02:05 PM Modules accepted: Orders [facility] Clinical Supporton Clinical Support [id number] Kiran SmallsMatt 1960 M Date Provider Department [place] 09/29/2023 [id number] SURV DME [facility] Family History Family history unknown: Yes [facility] Follow-Upon 09-29-2023 Follow-Up [facility] 36on 09-14-2023 36 [facility]rec[facility] with [facility] requested call back from adri in regards to diagnosis code for unaboot [id number] [facility] Telephoneon 09-14-2023 Telephone [facility] 36on 09-04-2023 36 DC to home on 024 Spoke to pt on 09/04/2023 Med rec not completed as pt states his partner reviewed and no questions, gets meds in a pill pack' Pt aware of upcoming appt and has transportation [facility] 36on 09-03-2023 36 Unable to reach pt a fter 2nd attempt [facility] 36 Unable to reach pt. VM msg left for call back [facility] 30on 09-02-2023 30 [facility] 30 [facility] 30 [facility] BASIC METABOLIC PANELon 08-10 Anion gap [Moles/Vol] 15 mmol/L Normal 7-20 [facility] Comment on above: Performed By: #### L [id number] ####[facility] ([facility]ER)[address] [place] [address] Calcium [Mass/Vol] 8.7 mg/dL Normal 8.6-10.3 [facility] Comment on above: Performed By: #### L [id number] ####[facility] (BEAKER)[address] [place] [address] Chloride [Moles/Vol] 98 mmol/L Normal 98-107 [facility] Comment on above: Performed By: #### L [id number] ####[facility] (BEAKER)[address] [place] [address] CO2 [Moles/Vol] 28 mmol/L Normal 21-31 [facility] Comment on above: Performed By: #### L [id number] ####[facility] ([facility])[address] [place] [address] Creatinine [Mass/Vol] 1.17 mg/dL Normal 0.70-1.30 [facility] Comment on above: Performed By: #### L [id number] ####[facility] ([facility])[address] [place] [address] GLOMERULAR FILTRATION RATE ML/MIN/1.73 SQ M.PREDICTED 70.5 mL/min/1.73m*2 Normal >60.0 [facility] Comment on above: Result Comment: [facility]???s estimated glomerular filtration rate (eGFR) will no [...] of individuals. Performed By: #### L [id number] ####[facility] ([facility])[address] [place] [address] Glucose [Mass/Vol] 142 mg/dL High 70-100 [facility] Comment on above: Performed By: #### L [id number] ####[facility] ([facility])[address] [place] [address] Potassium [Moles/Vol] 3.7 mmol/L Normal 3.5-5.1 [facility] Comment on above: Performed By: #### L [id number] ####[facility] ([facility])[address] [place] [address] Sodium [Moles/Vol] 137 mmol/L Normal 136-145 [facility] Comment on above: Performed By: #### L [id number] ####[facility] ([facility]AKER)[address] [place] [address] Urea nitrogen [Mass/Vol] 42 mg/dL High 7-25 [facility] Comment on above: Performed By: #### L [id number] ####[facility] ([facility]ER)[address] [place] [address] UREA NITROGEN/CREATININE (MASS RATIO) IN SER/PLAS 35.9 Normal [facility] Comment on above: Performed By: #### L [id number] ####[facility] ([facility])[address] [place] [address] CBCon 09-02-2023 Erythrocyte distribution width (RBC) [Ratio] 16.0 % High 11.5-15.0 [facility] Comment on above: Performed By: #### L [id number] ####[facility] ([facility] [place] [address] ERYTHROCYTE MEAN CORPUSCULAR HEMOGLOBIN CONCENTRATION (G/DL) BY AUTOMATED 30.2 g/dL Low 32.0-35.0 [facility] Comment on above: Performed By: #### L [id number] ####[facility] ([facility])[address] [place] [address] Hematocrit (Bld) [Volume fraction] 35.1 % Low 39.0-55.0 [facility] Comment on above: Performed By: #### L [id number] ####[facility] ([facility])[address] [place] [address] Hemoglobin (Bld) [Mass/Vol] 10.6 g/dL Low 13.0-17.0 [facility] Comment on above: Performed By: #### L [id number] ####[facility] ([facility])[address] [place] [address] MCH (RBC) [Entitic mass] 25.5 pg Low 27.0-33.0 [facility] Comment on above: Performed By: #### L [id number] ####[facility] ([facility])[address] [place] [address] MCV (RBC) [Entitic vol] 84.6 fL Normal 82.0-98.0 [facility] Comment on above: Performed By: #### L [id number] ####[facility] ([facility])[address] [place] [address] PLATELETS (10*3/UL) IN BLOOD AUTOMATED COUNT 174 10*3/uL Normal 150-400 [facility] Comment on above: Performed By: #### L [id number] ####[facility] ([facility])[address] [place] [address] RBC (Bld) [#/Vol] 4.15 10*6/uL Low 4.20-5.70 [facility] Comment on above: Performed By: #### L [id number] ####[facility] ([facility])[address] [place] [address] WBC (Bld) [#/Vol] 5.69 10*3/uL Normal 4.00-10.60 [facility] Comment on above: Performed By: #### L [id number] ####[facility] ([facility])[address] [place] [address] DSon 09-02-2023 DS Normal [facility] MAGNESIUMon 09-02-2023 Magnesium [Mass/Vol] 2.5 mg/dL Normal 1.9-2.7 [facility] Comment on above: Performed By: #### L [id number] ####[facility] ([facility])[address] [place] [address] POCT GLUCOSE METER UNSOLICIT ED RESULTSon 09-02-2023 Glucose [Mass/Vol] 255 mg/dL High 70-105 [facility] Comment on above: Order Comment: Waive d Testing in the ED is performed under the ED CLIA certificate #[id number]. Result Comment: vcar mon Performed By: #### L [id number] ####[facility] ([facility])[address] [place] [address] Glucose [Mass/Vol] 175 mg/dL High 70-105 [facility] Comment on above: Order Comment: Waive d Testing in the ED is performed under the ED CLIA certificate #[id number]. Result Comment: vcar mon Performed By: #### L [id number] ####[facility] (BEAKER)[address] [place] [address] 30on 09-01-2023 30 Normal [facility] 30 Normal [facility] BASIC METABOLIC PANELon 08-10 Anion gap [Moles/Vol] 13 mmol/L Normal 7-20 [facility] Comment on above: Performed By: #### L [id number] ####[facility] ([facility])[address] [place] [address] Calcium [Mass/Vol] 8.9 mg/dL Normal 8.6-10.3 [facility] Comment on above: Performed By: #### L [id number] ####[facility] ([facility])[address] [place] [address] Chloride [Moles/Vol] 96 mmol/L Low 98-107 [facility] Comment on above: Performed By: #### L [id number] ####[facility] ([facility])[address] [place] [address] CO2 [Moles/Vol] 29 mmol/L Normal 21-31 [facility] Comment on above: Performed By: #### L [id number] ####[facility] ([facility])[address] [place] [address] Creatinine [Mass/Vol] 1.18 mg/dL Normal 0.70-1.30 [facility] Comment on above: Performed By: #### L [id number] ####[facility] ([facility])[address] [place] [address] GLOMERULAR FILTRATION RATE ML/MIN/1.73 SQ M.PREDICTED 69.8 mL/min/1.73m*2 Normal >60.0 [facility] Comment on above: Result Comment: [facility]???s estimated glomerular filtration rate (eGFR) will no [...] of individuals. Performed By: #### L [id number] ####[facility] (BEAKER)[address] [place] [address] Glucose [Mass/Vol] 174 mg/dL High 70-100 [facility] Comment on above: Performed By: #### L [id number] ####[facility] (BEAKER)[address] [place] [address] Potassium [Moles/Vol] 3.9 mmol/L Normal 3.5-5.1 [facility] Comment on above: Performed By: #### L [id number] ####[facility] (BEAKER)[address] [place] [address] Sodium [Moles/Vol] 134 mmol/L Low 136-145 [facility] Comment on above: Performed By: #### L [id number] ####[facility] (BEAKER)[address] [place] [address] Urea nitrogen [Mass/Vol] 36 mg/dL High 7-25 [facility] Comment on above: Performed By: #### L [id number] ####[facility] (BEAKER)[address] [place] [address] UREA NITROGEN/CREATININE (MASS RATIO) IN SER/PLAS 30.5 Normal [facility] Comment on above: Performed By: #### L [id number] ####[facility] (BEAKER)[address] [place] [address] Anion gap [Moles/Vol] 14 mmol/L Normal 7-20 [facility] Comment on above: Performed By: #### L [id number] ####[facility] (BEAKER)[address] [place] [address] Calcium [Mass/Vol] 10.3 mg/dL Normal 8.6-10.3 [facility] Comment on above: Performed By: #### L [id number] ####[facility] (BEAKER)[address] [place] [address] Chloride [Moles/Vol] 91 mmol/L Low 98-107 [facility] Comment on above: Performed By: #### L [id number] ####[facility] (BEAKER)[address] [place] [address] CO2 [Moles/Vol] 29 mmol/L Normal 21-31 [facility] Comment on above: Performed By: #### L [id number] ####[facility] (BEAKER)[address] [place] [address] Creatinine [Mass/Vol] 1.34 mg/dL High 0.70-1.30 [facility] Comment on above: Performed By: #### L [id number] ####[facility] (BEAKER)[address] [place] [address] GLOMERULAR FILTRATION RATE ML/MIN/1.73 SQ M.PREDICTED 59.9 mL/min/1.73m*2 Low >60.0 [facility] Comment on above: Result Comment: [facility]???s estimated glomerular filtration rate (eGFR) will no [...] of individuals. Performed By: #### L [id number] ####[facility] (BEAKER)[address] [place] [address] Glucose [Mass/Vol] 266 mg/dL High 70-100 [facility] Comment on above: Performed By: #### L [id number] ####[facility] ([facility])[address] [place] [address] Potassium [Moles/Vol] 3.7 mmol/L Normal 3.5-5.1 [facility] Comment on above: Performed By: #### L [id number] ####[facility] ([facility])[address] [place] [address] Sodium [Moles/Vol] 130 mmol/L Low 136-145 [facility] Comment on above: Performed By: #### L [id number] ####[facility] ([facility])[address] [place] [address] Urea nitrogen [Mass/Vol] 42 mg/dL High 7-25 [facility] Comment on above: Performed By: #### L [id number] ####[facility] ([facility])[address] [place] [address] UREA NITROGEN/CREATININE (MASS RATIO) IN SER/PLAS 31.3 Normal [facility] Comment on above: Performed By: #### L [id number] ####[facility] ([facility])[address] [place] [address] LACTIC ACID WITH 4 HOUR REFL EXon 09-01-2023 LACTATE (MMOL/L) IN SER/PLAS 1.6 mmol/L Normal 0.5-2.2 [facility] Comment on above: Performed By: #### L [id number] ####[facility] ([facility])[address] [place] [address] MAGNESIUMon 09-01-2023 Magnesium [Mass/Vol] 2.5 mg/dL Normal 1.9-2.7 [facility] Comment on above: Performed By: #### L [id number] ####[facility] ([facility])[address] [place] [address] Magnesium [Mass/Vol] 2.3 mg/dL Normal 1.9-2.7 [facility] Comment on above: Performed By: #### L [id number] ####[facility] ([employer])[address] [place] [address] Orders Onlyon 09-01-2023 Orders Only [id number] Matt Wolff 1960 M Date Provider Department Center 09/01/[id number], IVI MP PAIN [facility] Family History Family history unknown: Yes [facility] POCT GLUCOSE METER UNSOLICIT ED RESULTSon 09-01-2023 Glucose [Mass/Vol] 188 mg/dL High 70-105 [facility] Comment on above: Order Comment: Waive d Testing in the ED is performed under the ED CLIA certificate #[id number]. Result Comment: [email or web address] Performed By: #### L [id number] ####[facility] ([employer])[address] [place] [address] Glucose [Mass/Vol] 215 mg/dL High 70-105 [facility] Comment on above: Order Comment: Waive d Testing in the ED is performed under the ED CLIA certificate #[id number]. Result Comment: vcar mon Performed By: #### L [id number] ####[facility] ([employer])[address] [place] [address] Glucose [Mass/Vol] 219 mg/dL High 70-105 [facility] Comment on above: Order Comment: Waive d Testing in the ED is performed under the ED CLIA certificate #[id number]. Result Comment: [email or web address] mon Performed By: #### L [id number] ####[facility] ([employer])[address] [place] [address] Glucose [Mass/Vol] 245 mg/dL High 70-105 [facility] Comment on above: Order Comment: Waive d Testing in the ED is performed under the ED CLIA certificate #[id number]. Result Comment: vcar mon Performed By: #### L [id number] ####[facility] (BEAKER)[address] [place] [address] 30on 08-31-2023 30 [facility] 30 Normal [facility] 30 Normal [facility] BASIC METABOLIC PANELon 04-2 Anion gap [Moles/Vol] 13 mmol/L Normal 7-20 [facility] Comment on above: Performed By: #### L [id number] ####[facility] ([facility]ER)[address] [place] [address] Calcium [Mass/Vol] 8.8 mg/dL Normal 8.6-10.3 [facility] Comment on above: Performed By: #### L [id number] ####[facility] (BEAKER)[address] [place] [address] Chloride [Moles/Vol] 92 mmol/L Low 98-107 [facility] Comment on above: Performed By: #### L [id number] ####[facility] (BEAKER)[address] [place] [address] CO2 [Moles/Vol] 33 mmol/L High 21-31 [facility] Comment on above: Performed By: #### L [id number] ####[facility] (BEAKER)[address] [place] [address] Creatinine [Mass/Vol] 1.53 mg/dL High 0.70-1.30 [facility] Comment on above: Performed By: #### L [id number] ####[facility] (BEAKER)[address] [place] [address] GLOMERULAR FILTRATION RATE ML/MIN/1.73 SQ M.PREDICTED 51.1 mL/min/1.73m*2 Low >60.0 [facility] Comment on above: Result Comment: [facility]???s estimated glomerular filtration rate (eGFR) will no [...] of individuals. Performed By: #### L [id number] ####[facility] ([facility])[address] [place] [address] Glucose [Mass/Vol] 165 mg/dL High 70-100 [facility] Comment on above: Performed By: #### L [id number] ####[facility] ([facility])[address] [place] [address] Potassium [Moles/Vol] 4.0 mmol/L Normal 3.5-5.1 [facility] Comment on above: Performed By: #### L [id number] ####[facility] ([facility])[address] [place] [address] Sodium [Moles/Vol] 134 mmol/L Low 136-145 [facility] Comment on above: Performed By: #### L [id number] ####[facility] ([facility])[address] [place] [address] Urea nitrogen [Mass/Vol] 46 mg/dL High 7-25 [facility] Comment on above: Performed By: #### L [id number] ####[facility] ([facility])[address] [place] [address] UREA NITROGEN/CREATININE (MASS RATIO) IN SER/PLAS 30.1 Normal [facility] Comment on above: Performed By: #### L [id number] ####[facility] ([facility])[address] [place] [address] Anion gap [Moles/Vol] 11 mmol/L Normal 7-20 [facility] Comment on above: Performed By: #### L [id number] ####[facility] ([facility])[address] [place] [address] Calcium [Mass/Vol] 8.0 mg/dL Low 8.6-10.3 [facility] Comment on above: Performed By: #### L [id number] ####[facility] ([facility])[address] [place] [address] Chloride [Moles/Vol] 95 mmol/L Low 98-107 [facility] Comment on above: Performed By: #### L [id number] ####[facility] ([facility])[address] [place] [address] CO2 [Moles/Vol] 33 mmol/L High 21-31 [facility] Comment on above: Performed By: #### L [id number] ####[facility] ([facility])[address] [place] [address] Creatinine [Mass/Vol] 1.63 mg/dL High 0.70-1.30 [facility] Comment on above: Performed By: #### L [id number] ####[facility] ([facility])[address] [place] [address] GLOMERULAR FILTRATION RATE ML/MIN/1.73 SQ M.PREDICTED 47.3 mL/min/1.73m*2 Low >60.0 [facility] Comment on above: Result Comment: [facility]???s estimated glomerular filtration rate (eGFR) will no [...] of individuals. Performed By: #### L [id number] ####[facility] ([facility])[address] [place] [address] Glucose [Mass/Vol] 196 mg/dL High 70-100 [facility] Comment on above: Performed By: #### L [id number] ####[facility] ([facility])[address] [place] [address] Potassium [Moles/Vol] 3.7 mmol/L Normal 3.5-5.1 [facility] Comment on above: Performed By: #### L [id number] ####[facility] (BEAKER)[address] [place] [address] Sodium [Moles/Vol] 135 mmol/L Low 136-145 [facility] Comment on above: Performed By: #### L [id number] ####[facility] (BEAKER)[address] [place] [address] Urea nitrogen [Mass/Vol] 54 mg/dL High 7-25 [facility] Comment on above: Performed By: #### L [id number] ####[facility] ([facility] [place] [address] UREA NITROGEN/CREATININE (MASS RATIO) IN SER/PLAS 33.1 Normal [facility] Comment on above: Performed By: #### L [id number] ####[facility] ([facility] [address] CBCon 08-31-2023 Erythrocyte distribution width (RBC) [Ratio] 16.2 % High 11.5-15.0 [facility] Comment on above: Performed By: #### L [id number] ####[facility] ([facility])[address] [place] [address] ERYTHROCYTE MEAN CORPUSCULAR HEMOGLOBIN CONCENTRATION (G/DL) BY AUTOMATED 32.4 g/dL Normal 32.0-35.0 [facility] Comment on above: Performed By: #### L [id number] ####[facility] ([facility])[address] [place], [place] [address] Hematocrit (Bld) [Volume fraction] 36.1 % Low 39.0-55.0 [facility] Comment on above: Performed By: #### L [id number] ####[facility] (BEAKER)[address] [place], [place] [address] Hemoglobin (Bld) [Mass/Vol] 11.7 g/dL Low 13.0-17.0 [facility] Comment on above: Performed By: #### L [id number] ####[facility] (BEAKER)[address] [place] [address] MCH (RBC) [Entitic mass] 25.9 pg Low 27.0-33.0 [facility] Comment on above: Performed By: #### L [id number] ####[facility] ([facility])[address] [address] MCV (RBC) [Entitic vol] 80.0 fL Low 82.0-98.0 [facility] Comment on above: Performed By: #### L [id number] ####[facility] ([facility])[address] [address] PLATELETS (10*3/UL) IN BLOOD AUTOMATED COUNT 202 10*3/uL Normal 150-400 [facility] Comment on above: Performed By: #### L [id number] ####[facility] ([facility])[address] [address] RBC (Bld) [#/Vol] 4.51 10*6/uL Normal 4.20-5.70 [facility] Comment on above: Performed By: #### L [id number] ####[facility] ([facility])[address] [place] [address] WBC (Bld) [#/Vol] 6.51 10*3/uL Normal 4.00-10.60 [facility] Comment on above: Performed By: #### L [id number] ####[facility] ([facility])[address] [address] MAGNESIUMon 08-31-2023 Magnesium [Mass/Vol] 2.3 mg/dL Normal 1.9-2.7 [facility] Comment on above: Performed By: #### L [id number] ####[facility] ([facility])[address] [place] [address] Magnesium [Mass/Vol] 2.1 mg/dL Normal 1.9-2.7 [facility] Comment on above: Performed By: #### L [id number] ####[facility] ([facility])[address] [place] [address] POCT GLUCOSE METER UNSOLICIT ED RESULTSon 08-31-2023 Glucose [Mass/Vol] 272 mg/dL High 70-105 [facility] Comment on above: Order Comment: Waive d Testing in the ED is performed under the ED CLIA certificate #[id number]. Result Comment: [email or web address] Performed By: #### L [id number] ####[facility] ([facility]ER)[address] [place] [address] Glucose [Mass/Vol] 256 mg/dL High 70-105 [facility] Comment on above: Order Comment: Waive d Testing in the ED is performed under the ED CLIA certificate #[id number]. Result Comment: [email or web address] Performed By: #### L [id number] ####[facility] ([facility])[address] [place] [address] Glucose [Mass/Vol] 241 mg/dL High 70-105 [facility] Comment on above: Order Comment: Waive d Testing in the ED is performed under the ED CLIA certificate #[id number]. Result Comment: [email or web address] Performed By: #### L [id number] ####[facility] ([employer])[address] [place] [address] Glucose [Mass/Vol] 200 mg/dL High 70-105 [facility] Comment on above: Order Comment: Waive d Testing in the ED is performed under the ED CLIA certificate #[id number]. Result Comment: [email or web address] Performed By: #### L [id number] ####[facility] ([facility])[address] [place] [address] BASIC METABOLIC PANELon -2 Anion gap [Moles/Vol] 14 mmol/L Normal 7-20 [facility] Comment on above: Performed By: #### L [id number] ####[facility] ([facility])[address] [place] [address] Calcium [Mass/Vol] 8.4 mg/dL Low 8.6-10.3 [facility] Comment on above: Performed By: #### L [id number] ####[facility] ([facility] [place] [address] Chloride [Moles/Vol] 98 mmol/L Normal 98-107 [facility] Comment on above: Performed By: #### L [id number] ####[facility] ([facility])[address] [place] [address] CO2 [Moles/Vol] 29 mmol/L Normal 21-31 [facility] Comment on above: Performed By: #### L [id number] ####[facility] ([facility])[address] [place] [address] Creatinine [Mass/Vol] 1.39 mg/dL High 0.70-1.30 [facility] Comment on above: Performed By: #### L [id number] ####[facility] ([facility])[address] [place] [address] GLOMERULAR FILTRATION RATE ML/MIN/1.73 SQ M.PREDICTED 57.3 mL/min/1.73m*2 Low >60.0 [facility] Comment on above: Result Comment: [facility]???s estimated glomerular filtration rate (eGFR) will no [...] of individuals. Performed By: #### L [id number] ####[facility] ([facility])[address] [place] [address] Glucose [Mass/Vol] 173 mg/dL High 70-100 [facility] Comment on above: Performed By: #### L [id number] ####[facility] ([facility])[address] [place] [address] Potassium [Moles/Vol] 4.6 mmol/L Normal 3.5-5.1 [facility] Comment on above: Performed By: #### L [id number] ####[facility] ([facility])[address] [place] [address] Sodium [Moles/Vol] 136 mmol/L Normal 136-145 [facility] Comment on above: Performed By: #### L [id number] ####[facility] (BEAKER)[address] [place] [address] Urea nitrogen [Mass/Vol] 46 mg/dL High 7-25 [facility] Comment on above: Performed By: #### L [id number] ####[facility] (BEAKER)[address] [place] [address] UREA NITROGEN/CREATININE (MASS RATIO) IN SER/PLAS 33.1 Normal [facility] Comment on above: Performed By: #### L [id number] ####[facility] (BEAKER)[address] [place] [address] Anion gap [Moles/Vol] 14 mmol/L Normal 7-20 [facility] Comment on above: Performed By: #### L [id number] ####[facility] (BEAKER)[address] [place] [address] Calcium [Mass/Vol] 7.9 mg/dL Low 8.6-10.3 [facility] Comment on above: Performed By: #### L [id number] ####[facility] ([facility])[address] [place] [address] Chloride [Moles/Vol] 100 mmol/L Normal 98-107 [facility] Comment on above: Performed By: #### L [id number] ####[facility] ([facility])[address] [place] [address] CO2 [Moles/Vol] 27 mmol/L Normal 21-31 [facility] Comment on above: Performed By: #### L [id number] ####[facility] ([facility])[address] [place] [address] Creatinine [Mass/Vol] 1.27 mg/dL Normal 0.70-1.30 [facility] Comment on above: Performed By: #### L [id number] ####[facility] ([facility])[address] [place] [address] GLOMERULAR FILTRATION RATE ML/MIN/1.73 SQ M.PREDICTED 63.9 mL/min/1.73m*2 Normal >60.0 [facility] Comment on above: Result Comment: [facility]???s estimated glomerular filtration rate (eGFR) will no [...] of individuals. Performed By: #### L [id number] ####[facility] ([facility])[address] [place] [address] Glucose [Mass/Vol] 160 mg/dL High 70-100 [facility] Comment on above: Performed By: #### L [id number] ####[facility] ([facility])[address] [place] [address] Potassium [Moles/Vol] 3.8 mmol/L Normal 3.5-5.1 [facility] Comment on above: Performed By: #### L [id number] ####[facility] ([facility])[address] [place] [address] Sodium [Moles/Vol] 137 mmol/L Normal 136-145 [facility] Comment on above: Performed By: #### L [id number] ####[facility] ([facility])[address] [place] [address] Urea nitrogen [Mass/Vol] 49 mg/dL High 7-25 [facility] Comment on above: Performed By: #### L [id number] ####[facility] ([facility])[address] [place] [address] UREA NITROGEN/CREATININE (MASS RATIO) IN SER/PLAS 38.6 Normal [facility] Comment on above: Performed By: #### L [id number] ####[facility] ([facility])[address] [place] [address] MAGNESIUMon 08-30-2023 Magnesium [Mass/Vol] 2.3 mg/dL Normal 1.9-2.7 [facility] Comment on above: Performed By: #### L [id number] ####[facility] ([facility])[address] [place] [address] Magnesium [Mass/Vol] 2.3 mg/dL Normal 1.9-2.7 [facility] Comment on above: Performed By: #### L [id number] ####[facility] ([facility])[address] [place] [address] POCT GLUCOSE METER UNSOLICIT ED RESULTSon 08-30-2023 Glucose [Mass/Vol] 155 mg/dL High 70-105 [facility] Comment on above: Order Comment: Waive d Testing in the ED is performed under the ED CLIA certificate #[id number]. Result Comment: [email or web address] Performed By: #### L [id number] ####[facility] ([facility])[address] [place] [address] Glucose [Mass/Vol] 223 mg/dL High 70-105 [facility] Comment on above: Order Comment: Waive d Testing in the ED is performed under the ED CLIA certificate #[id number]. Result Comment: [email or web address] Performed By: #### L [id number] ####[facility] ([facility])[address] [place] [address] Glucose [Mass/Vol] 205 mg/dL High 70-105 [facility] Comment on above: Order Comment: Waive d Testing in the ED is performed under the ED CLIA certificate #[id number]. Result Comment: [email or web address] Performed By: #### L [id number] ####[facility] ([facility])[address] [place] [address] Glucose [Mass/Vol] 175 mg/dL High 70-105 [facility] Comment on above: Order Comment: Waive d Testing in the ED is performed under the ED CLIA certificate #[id number]. Result Comment: [email or web address] Performed By: #### L [id number] ####[facility] (BEAKER)[address] [place] [address] 30on 08-29-2023 30 Normal [facility] 30 Normal [facility] 30 Normal [facility] BASIC METABOLIC PANELon 08-10 Anion gap [Moles/Vol] 11 mmol/L Normal 7-20 [facility] Comment on above: Performed By: #### L [id number] ####[facility] (BEAKER)[address] [place] [address] Calcium [Mass/Vol] 8.1 mg/dL Low 8.6-10.3 [facility] Comment on above: Performed By: #### L [id number] ####[facility] (BEAKER)[address] [place] [address] Chloride [Moles/Vol] 96 mmol/L Low 98-107 [facility] Comment on above: Performed By: #### L [id number] ####[facility] (BEAKER)[address] [place] [address] CO2 [Moles/Vol] 33 mmol/L High 21-31 [facility] Comment on above: Performed By: #### L [id number] ####[facility] (BEAKER)[address] [place] [address] Creatinine [Mass/Vol] 1.32 mg/dL High 0.70-1.30 [facility] Comment on above: Performed By: #### L [id number] ####[facility] (BEAKER)[address] [place] [address] GLOMERULAR FILTRATION RATE ML/MIN/1.73 SQ M.PREDICTED 61.0 mL/min/1.73m*2 Normal >60.0 [facility] Comment on above: Result Comment: [facility]???s estimated glomerular filtration rate (eGFR) will no [...] of individuals. Performed By: #### L [id number] ####[facility] ([facility])[address] [place] [address] Glucose [Mass/Vol] 220 mg/dL High 70-100 [facility] Comment on above: Performed By: #### L [id number] ####[facility] ([facility])[address] [place] [address] Potassium [Moles/Vol] 3.8 mmol/L Normal 3.5-5.1 [facility] Comment on above: Performed By: #### L [id number] ####[facility] ([facility])[address] [place] [address] Sodium [Moles/Vol] 136 mmol/L Normal 136-145 [facility] Comment on above: Performed By: #### L [id number] ####[facility] ([facility] [place] [address] Urea nitrogen [Mass/Vol] 40 mg/dL High 7-25 [facility] Comment on above: Performed By: #### L [id number] ####[facility] ([facility])[address] [place] [address] UREA NITROGEN/CREATININE (MASS RATIO) IN SER/PLAS 30.3 Normal [facility] Comment on above: Performed By: #### L [id number] ####[facility] ([facility])[address] [place] [address] Anion gap [Moles/Vol] 18 mmol/L Normal 7-20 [facility] Comment on above: Performed By: #### L [id number] ####[facility] ([facility] [place] [address] Calcium [Mass/Vol] 7.8 mg/dL Low 8.6-10.3 [facility] Comment on above: Performed By: #### L [id number] ####[facility] ([facility])[address] [place] [address] Chloride [Moles/Vol] 98 mmol/L Normal 98-107 [facility] Comment on above: Performed By: #### L [id number] ####[facility] ([facility])[address] [place] [address] CO2 [Moles/Vol] 23 mmol/L Normal 21-31 [facility] Comment on above: Performed By: #### L [id number] ####[facility] ([facility])[address] [place] [address] Creatinine [Mass/Vol] 1.32 mg/dL High 0.70-1.30 [facility] Comment on above: Performed By: #### L [id number] ####[facility] ([facility])[address] [place] [address] GLOMERULAR FILTRATION RATE ML/MIN/1.73 SQ M.PREDICTED 61.0 mL/min/1.73m*2 Normal >60.0 [facility] Comment on above: Result Comment: [facility]???s estimated glomerular filtration rate (eGFR) will no [...] of individuals. Performed By: #### L [id number] ####[facility] ([facility])[address] [place] [address] Glucose [Mass/Vol] 168 mg/dL High 70-100 [facility] Comment on above: Performed By: #### L [id number] ####[facility] ([facility] [place] [address] Potassium [Moles/Vol] 4.5 mmol/L Normal 3.5-5.1 [facility] Comment on above: Performed By: #### L [id number] ####[facility] ([facility])[address] [place] [address] Sodium [Moles/Vol] 134 mmol/L Low 136-145 [facility] Comment on above: Performed By: #### L [id number] ####[facility] ([facility])[address] [place] [address] Urea nitrogen [Mass/Vol] 44 mg/dL High 7-25 [facility] Comment on above: Performed By: #### L [id number] ####[facility] ([facility])[address] [place] [address] UREA NITROGEN/CREATININE (MASS RATIO) IN SER/PLAS 33.3 Normal [facility] Comment on above: Performed By: #### L [id number] ####[facility] ([facility])[address] [place] [address] CBCon 08-29-2023 Erythrocyte distribution width (RBC) [Ratio] 16.0 % High 11.5-15.0 [facility] Comment on above: Performed By: #### L [id number] ####[facility] ([facility])[address] [place] [address] ERYTHROCYTE MEAN CORPUSCULAR HEMOGLOBIN CONCENTRATION (G/DL) BY AUTOMATED 31.6 g/dL Low 32.0-35.0 [facility] Comment on above: Performed By: #### L [id number] ####[facility] (BEAKER)[address] [place] [address] Hematocrit (Bld) [Volume fraction] 34.8 % Low 39.0-55.0 [facility] Comment on above: Performed By: #### L [id number] ####[facility] ([facility])[address] [place] [address] Hemoglobin (Bld) [Mass/Vol] 11.0 g/dL Low 13.0-17.0 [facility] Comment on above: Performed By: #### L [id number] ####[facility] ([facility])[address] [place] [address] MCH (RBC) [Entitic mass] 25.4 pg Low 27.0-33.0 [facility] Comment on above: Performed By: #### L [id number] ####[facility] ([facility])[address] [place] [address] MCV (RBC) [Entitic vol] 80.4 fL Low 82.0-98.0 [facility] Comment on above: Performed By: #### L [id number] ####[facility] ([facility])[address] [place] [address] PLATELETS (10*3/UL) IN BLOOD AUTOMATED COUNT 180 10*3/uL Normal 150-400 [facility] Comment on above: Performed By: #### L [id number] ####[facility] ([facility])[address] [place] [address] RBC (Bld) [#/Vol] 4.33 10*6/uL Normal 4.20-5.70 [facility] Comment on above: Performed By: #### L [id number] ####[facility] ([facility])[address] [place] [address] WBC (Bld) [#/Vol] 8.22 10*3/uL Normal 4.00-10.60 [facility] Comment on above: Performed By: #### L [id number] ####[facility] ([facility])[address] [place] [address] MAGNESIUMon 08-29-2023 Magnesium [Mass/Vol] 2.0 mg/dL Normal 1.9-2.7 [facility] Comment on above: Performed By: #### L [id number] ####[facility] ([facility])[address] [place] [address] Magnesium [Mass/Vol] 2.1 mg/dL Normal 1.9-2.7 [facility] Comment on above: Performed By: #### L [id number] ####[facility] ([facility])[address] [place] [address] POCT GLUCOSE METER UNSOLICIT ED RESULTSon 08-29-2023 Glucose [Mass/Vol] 152 mg/dL High 70-105 [facility] Comment on above: Order Comment: Waive d Testing in the ED is performed under the ED CLIA certificate #[id number]. Result Comment: ian [email or web address] Performed By: #### L [id number] ####[facility] ([facility])[address] [place] [address] Glucose [Mass/Vol] 224 mg/dL High 70-105 [facility] Comment on above: Order Comment: Waive d Testing in the ED is performed under the ED CLIA certificate #[id number]. Result Comment: [email or web address] Performed By: #### L [id number] ####[facility] ([facility])[address] [place] [address] Glucose [Mass/Vol] 247 mg/dL High 70-105 [facility] Comment on above: Order Comment: Waive d Testing in the ED is performed under the ED CLIA certificate #[id number]. Result Comment: [email or web address] Performed By: #### L [id number] ####[facility] ([facility])[address] [place] [address] Glucose [Mass/Vol] 173 mg/dL High 70-105 [facility] Comment on above: Order Comment: Waive d Testing in the ED is performed under the ED CLIA certificate #[id number]. Result Comment: [email or web address] [email or web address] Performed By: #### L [id number] ####[facility] ([facility])[address] [place] [address] Glucose [Mass/Vol] 169 mg/dL High 70-105 [facility] Comment on above: Order Comment: Waive d Testing in the ED is performed under the ED CLIA certificate #[id number]. Result Comment: [email or web address] Performed By: #### L [id number] ####[facility] (BEAKER)[address] [place] [address] 30on 08-28-2023 30 Normal [facility] 30 Normal [facility] 30 Normal [facility] BASIC METABOLIC PANELon 08-09 Anion gap [Moles/Vol] 12 mmol/L Normal 7-20 [facility] Comment on above: Performed By: #### L [id number] ####[facility] (BEAKER)[address] [place] [address] Calcium [Mass/Vol] 8.5 mg/dL Low 8.6-10.3 [facility] Comment on above: Performed By: #### L [id number] ####[facility] (BEAKER)[address] [place] [address] Chloride [Moles/Vol] 97 mmol/L Low 98-107 [facility] Comment on above: Performed By: #### L [id number] ####[facility] (BEAKER)[address] [place] [address] CO2 [Moles/Vol] 32 mmol/L High 21-31 [facility] Comment on above: Performed By: #### L [id number] ####[facility] (BEAKER)[address] [place] [address] Creatinine [Mass/Vol] 1.15 mg/dL Normal 0.70-1.30 [facility] Comment on above: Performed By: #### L [id number] ####[facility] (BEAKER)[address] [place] [address] GLOMERULAR FILTRATION RATE ML/MIN/1.73 SQ M.PREDICTED 72.0 mL/min/1.73m*2 Normal >60.0 [facility] Comment on above: Result Comment: [facility]???s estimated glomerular filtration rate (eGFR) will no [...] of individuals. Performed By: #### L [id number] ####[facility] (BEAKER)[address] [place] [address] Glucose [Mass/Vol] 208 mg/dL High 70-100 [facility] Comment on above: Performed By: #### L [id number] ####[facility] (BEAKER)[address] [place] [address] Potassium [Moles/Vol] 4.2 mmol/L Normal 3.5-5.1 [facility] Comment on above: Performed By: #### L [id number] ####[facility] (BEAKER)[address] [place] [address] Sodium [Moles/Vol] 137 mmol/L Normal 136-145 [facility] Comment on above: Performed By: #### L [id number] ####[facility] (BEAKER)[address] [place] [address] Urea nitrogen [Mass/Vol] 31 mg/dL High 7-25 [facility] Comment on above: Performed By: #### L [id number] ####[facility] (BEAKER)[address] [place] [address] UREA NITROGEN/CREATININE (MASS RATIO) IN SER/PLAS 27.0 Normal [facility] Comment on above: Performed By: #### L [id number] ####[facility] (BEAKER)[address] [place] [address] Anion gap [Moles/Vol] 13 mmol/L Normal 7-20 [facility] Comment on above: Performed By: #### L [id number] ####[facility] ([facility]ER)[address] [place] [address] Calcium [Mass/Vol] 8.3 mg/dL Low 8.6-10.3 [facility] Comment on above: Performed By: #### L [id number] ####[facility] (BEAKER)[address] [place] [address] Chloride [Moles/Vol] 98 mmol/L Normal 98-107 [facility] Comment on above: Performed By: #### L [id number] ####[facility] (BEAKER)[address] [place] [address] CO2 [Moles/Vol] 30 mmol/L Normal 21-31 [facility] Comment on above: Performed By: #### L [id number] ####[facility] (BEAKER)[address] [place] [address] Creatinine [Mass/Vol] 1.23 mg/dL Normal 0.70-1.30 [facility] Comment on above: Performed By: #### L [id number] ####[facility] ([facility] [place] [address] GLOMERULAR FILTRATION RATE ML/MIN/1.73 SQ M.PREDICTED 66.4 mL/min/1.73m*2 Normal >60.0 [facility] Comment on above: Result Comment: [facility]???s estimated glomerular filtration rate (eGFR) will no [...] of individuals. Performed By: #### L [id number] ####[facility] (BEAKER)[address] [place] [address] Glucose [Mass/Vol] 163 mg/dL High 70-100 [facility] Comment on above: Performed By: #### L [id number] ####[facility] ([facility])[address] [place] [address] Potassium [Moles/Vol] 3.7 mmol/L Normal 3.5-5.1 [facility] Comment on above: Performed By: #### L [id number] ####[facility] ([facility])[address] [place] [address] Sodium [Moles/Vol] 137 mmol/L Normal 136-145 [facility] Comment on above: Performed By: #### L [id number] ####[facility] ([facility])[address] [place] [address] Urea nitrogen [Mass/Vol] 31 mg/dL High 7-25 [facility] Comment on above: Performed By: #### L [id number] ####[facility] ([facility])[address] [place] [address] UREA NITROGEN/CREATININE (MASS RATIO) IN SER/PLAS 25.2 Normal [facility] Comment on above: Performed By: #### L [id number] ####[facility] ([facility])[address] [place] [address] HEMOGLOBIN A1Con 08-28-2023 Glucose [Mass/Vol] 183 mg/dL Normal [facility] Comment on above: Order Comment: NO VA RIANT Performed By: #### L [id number] ####[facility] ([facility])[address] [place] [address] HbA1c (Bld) [Mass fraction] 8.0 % High 4.0-6.0 [facility] Comment on above: Order Comment: NO VA RIANT Performed By: #### L [id number] ####[facility] ([facility])[address] [facility] [address] MAGNESIUMon 08-28-2023 Magnesium [Mass/Vol] 1.8 mg/dL Low 1.9-2.7 [facility] Comment on above: Performed By: #### L [id number] ####[facility] ([facility])[address] [place] [address] Magnesium [Mass/Vol] 1.8 mg/dL Low 1.9-2.7 [facility] Comment on above: Performed By: #### L [id number] ####[facility] ([facility])[address] [place] [address] POCT GLUCOSE METER UNSOLICIT ED RESULTSon 08-28-2023 Glucose [Mass/Vol] 210 mg/dL High 70-105 [facility] Comment on above: Order Comment: Waive d Testing in the ED is performed under the ED CLIA certificate #[id number]. Result Comment: ian page Performed By: #### L [id number] ####[facility] ([facility])[address] [place] [address] Glucose [Mass/Vol] 172 mg/dL High 70-105 [facility] Comment on above: Order Comment: Waive d Testing in the ED is performed under the ED CLIA certificate #[id number]. Result Comment: [email or web address] Performed By: #### L [id number] ####[facility] ([facility])[address] [place] [address] Glucose [Mass/Vol] 227 mg/dL High 70-105 [facility] Comment on above: Order Comment: Waive d Testing in the ED is performed under the ED CLIA certificate #[id number]. Result Comment: [email or web address] Performed By: #### L [id number] ####[facility] ([facility])[address] [place] [address] Glucose [Mass/Vol] 178 mg/dL High 70-105 [facility] Comment on above: Order Comment: Waive d Testing in the ED is performed under the ED CLIA certificate #[id number]. Result Comment: [email or web address] Performed By: #### L [id number] ####[facility] ([facility])[address] [place] [address] 30on 08-27-2023 30 Normal [facility] 30 Normal [facility] 30 Normal [facility] B-TYPE NATRIURETIC PEPTIDEon 08-27-2023 Natriuretic peptide B (Bld) [Mass/Vol] 73 pg/mL Normal 0-100 [facility] Comment on above: Performed By: #### L [id number] ####[facility] ([facility] [place] [address] BASIC METABOLIC PANELon 08-09 Anion gap [Moles/Vol] 16 mmol/L Normal 7-20 [facility] Comment on above: Performed By: #### L [id number] ####[facility] ([facility])[address] [place] [address] Calcium [Mass/Vol] 9.1 mg/dL Normal 8.6-10.3 [facility] Comment on above: Performed By: #### L [id number] ####[facility] ([facility] [place] [address] Chloride [Moles/Vol] 102 mmol/L Normal 98-107 [facility] Comment on above: Performed By: #### L [id number] ####[facility] ([facility] [place] [address] CO2 [Moles/Vol] 21 mmol/L Normal 21-31 [facility] Comment on above: Performed By: #### L [id number] ####[facility] ([facility] [place] [address] Creatinine [Mass/Vol] 0.76 mg/dL Normal 0.70-1.30 [facility] Comment on above: Performed By: #### L [id number] ####[facility] ([facility])[address] [place] [address] GLOMERULAR FILTRATION RATE ML/MIN/1.73 SQ M.PREDICTED 101.6 mL/min/1.73m*2 Normal >60.0 [facility] Comment on above: Result Comment: The [facility]???s estimated glomerular filtration rate (eGFR) will no [...] of individuals. Performed By: #### L [id number] ####[facility] ([facility])[address] [place] [address] Glucose [Mass/Vol] 232 mg/dL High 70-100 [facility] Comment on above: Performed By: #### L [id number] ####[facility] ([facility])[address] [place] [address] Potassium [Moles/Vol] 4.1 mmol/L Normal 3.5-5.1 [facility] Comment on above: Performed By: #### L [id number] ####[facility] ([facility])[address] [place] [address] Sodium [Moles/Vol] 135 mmol/L Low 136-145 [facility] Comment on above: Performed By: #### L [id number] ####[facility] ([facility])[address] [place] [address] Urea nitrogen [Mass/Vol] 18 mg/dL Normal 7-25 [facility] Comment on above: Performed By: #### L [id number] ####[facility] ([facility])[address] [place] [address] UREA NITROGEN/CREATININE (MASS RATIO) IN SER/PLAS 23.7 Normal [facility] Comment on above: Performed By: #### L [id number] ####[facility] ([facility])[address] [place] [address] CBC WITH AUTO DIFFERENTIALon 08-27-2023 Basophils (Bld) [#/Vol] 0.04 10*3/uL Normal 0.00-0.20 [facility] Comment on above: Performed By: #### L [id number] ####[facility] ([facility])[address] [place] [address] Basophils/100 WBC (Bld) 0.8 % Normal 0.0-1.0 [facility] Comment on above: Performed By: #### L [id number] ####[facility] (BEAKER)[address] [place] [address] Eosinophils (Bld) [#/Vol] 0.16 10*3/uL Normal 0.00-0.50 [facility] Comment on above: Performed By: #### L [id number] ####[facility] (BEAKER)[address] [place] [address] Eosinophils/100 WBC (Bld) 3.1 % Normal 0.0-6.0 [facility] Comment on above: Performed By: #### L [id number] ####[facility] (BEAKER)[address] [place] [address] Erythrocyte distribution width (RBC) [Ratio] 15.9 % High 11.5-15.0 [facility] Comment on above: Performed By: #### L [id number] ####[facility] (BEAKER)[address] [place] [address] ERYTHROCYTE MEAN CORPUSCULAR HEMOGLOBIN CONCENTRATION (G/DL) BY AUTOMATED 30.9 g/dL Low 32.0-35.0 [facility] Comment on above: Performed By: #### L [id number] ####[facility] (BEAKER)[address] [place] [address] Hematocrit (Bld) [Volume fraction] 32.4 % Low 39.0-55.0 [facility] Comment on above: Performed By: #### L [id number] ####[facility] (BEAKER)[address] [place] [address] Hemoglobin (Bld) [Mass/Vol] 10.0 g/dL Low 13.0-17.0 [facility] Comment on above: Performed By: #### L [id number] ####[facility] (BEAKER)[address] [place] [address] Immature granulocytes (Bld) [#/Vol] 0.00 10*3/uL Normal 0.00-0.20 [facility] Comment on above: Performed By: #### L [id number] ####[facility] (BEAKER)[address] [place] [address] Immature granulocytes/100 WBC (Bld) 0.0 % Normal 0.0-1.0 [facility] Comment on above: Performed By: #### L [id number] ####[facility] (BEAKER)[address] [place] [address] Lymphocytes (Bld) [#/Vol] 1.71 10*3/uL Normal 1.20-4.00 [facility] Comment on above: Performed By: #### L [id number] ####[facility] (BEAKER)[address] [place] [address] Lymphocytes/100 WBC (Bld) 33.5 % Normal 20.0-45.0 [facility] Comment on above: Performed By: #### L [id number] ####[facility] (BEAKER)[address] [place] [address] MCH (RBC) [Entitic mass] 25.1 pg Low 27.0-33.0 [facility] Comment on above: Performed By: #### L [id number] ####[facility] (BEAKER)[address] [place] [address] MCV (RBC) [Entitic vol] 81.2 fL Low 82.0-98.0 [facility] Comment on above: Performed By: #### L [id number] ####[facility] (BEAKER)[address] [place] [address] Monocytes (Bld) [#/Vol] 0.53 10*3/uL Normal 0.10-1.00 [facility] Comment on above: Performed By: #### L [id number] ####[facility] (BEAKER)[address] [place] [address] Monocytes/100 WBC (Bld) 10.4 % Normal 5.0-12.0 [facility] Comment on above: Performed By: #### L [id number] ####[facility] ([facility])[address] [place] [address] Neutrophils (Bld) [#/Vol] 2.67 10*3/uL Normal 1.60-7.60 [facility] Comment on above: Performed By: #### L [id number] ####[facility] ([facility])[address] [place] [address] Neutrophils/100 WBC (Bld) 52.2 % Normal 40.0-72.0 [facility] Comment on above: Performed By: #### L [id number] ####[facility] ([facility])[address] [place] [address] NRBC (PER 100 WBCS) BY AUTOMATED COUNT 0.0 % Normal 0 [facility] Comment on above: Performed By: #### L [id number] ####[facility] ([facility])[address] [place] [address] PLATELETS (10*3/UL) IN BLOOD AUTOMATED COUNT 173 10*3/uL Normal 150-400 [facility] Comment on above: Performed By: #### L [id number] ####[facility] ([facility])[address] [place] [address] RBC (Bld) [#/Vol] 3.99 10*6/uL Low 4.20-5.70 [facility] Comment on above: Performed By: #### L [id number] ####[facility] (BEAKER)[address] [place] [address] WBC (Bld) [#/Vol] 5.11 10*3/uL Normal 4.00-10.60 [facility] Comment on above: Performed By: #### L [id number] ####[facility] (BEAKER)[address] [place] [address] COMPREHENSIVE METABOLIC PANE Brayan 08-27-2023 Albumin [Mass/Vol] 3.0 g/dL Low 3.5-5.7 [facility] Comment on above: Performed By: #### L [id number] ####[facility] ([facility])[address] [place] [address] ALP [Catalytic activity/Vol] 55 U/L Normal 34-104 [facility] Comment on above: Performed By: #### L [id number] ####[facility] ([facility])[address] [place] [address] ALT [Catalytic activity/Vol] 8 U/L Normal 7-52 [facility] Comment on above: Performed By: #### L [id number] ####[facility] ([facility])[address] [place] [address] Anion gap [Moles/Vol] 11 mmol/L Normal 7-20 [facility] Comment on above: Performed By: #### L [id number] ####[facility] ([facility])[address] [place] [address] AST [Catalytic activity/Vol] 11 U/L Low 13-39 [facility] Comment on above: Performed By: #### L [id number] ####[facility] ([facility])[address] [place] [address] Bilirubin [Mass/Vol] 0.3 mg/dL Normal 0.3-1.0 [facility] Comment on above: Performed By: #### L [id number] ####[facility] ([facility])[address] [place] [address] Calcium [Mass/Vol] 8.2 mg/dL Low 8.6-10.3 [facility] Comment on above: Performed By: #### L [id number] ####[facility] ([facility])[address] [place] [address] Chloride [Moles/Vol] 104 mmol/L Normal 98-107 [facility] Comment on above: Performed By: #### L [id number] ####[facility] (BEAKER)[address] [place] [address] CO2 [Moles/Vol] 27 mmol/L Normal 21-31 [facility] Comment on above: Performed By: #### L [id number] ####[facility] ([facility])[address] [place] [address] Creatinine [Mass/Vol] 0.71 mg/dL Normal 0.70-1.30 [facility] Comment on above: Performed By: #### L [id number] ####[facility] ([facility])[address] [place] [address] GLOMERULAR FILTRATION RATE ML/MIN/1.73 SQ M.PREDICTED 103.7 mL/min/1.73m*2 Normal >60.0 [facility] Comment on above: Result Comment: [facility]???s estimated glomerular filtration rate (eGFR) will no [...] of individuals. Performed By: #### L [id number] ####[facility] ([facility])[address] [place] [address] Glucose [Mass/Vol] 292 mg/dL High 70-100 [facility] Comment on above: Performed By: #### L [id number] ####[facility] ([facility])[address] [place] [address] Potassium [Moles/Vol] 4.0 mmol/L Normal 3.5-5.1 [facility] Comment on above: Performed By: #### L [id number] ####[facility] ([facility])[address] [place] [address] Protein [Mass/Vol] 6.2 g/dL Normal 6.0-8.3 [facility] Comment on above: Performed By: #### L [id number] ####[facility] ([facility] [facility] [place] [address] Sodium [Moles/Vol] 138 mmol/L Normal 136-145 [facility] Comment on above: Performed By: #### L [id number] ####[facility] ([facility])[address] [place] [address] Urea nitrogen [Mass/Vol] 18 mg/dL Normal 7-25 [facility] Comment on above: Performed By: #### L [id number] ####[facility] ([facility])[address] [facility] [place] [address] UREA NITROGEN/CREATININE (MASS RATIO) IN SER/PLAS 25.4 Normal [facility] Comment on above: Performed By: #### L [id number] ####[facility] ([facility])[address] [facility] [place] [address] CONSULTon 08-27-2023 CONSULT Normal [facility] CONSULT Normal [facility] CONSULT [facility] CONSULT Normal [facility] HPon 08-27-2023 HP Normal [facility] MAGNESIUMon 08-27-2023 Magnesium [Mass/Vol] 1.7 mg/dL Low 1.9-2.7 [facility] Comment on above: Performed By: #### L [id number] ####[facility] ([facility])[address] [place] [address] Magnesium [Mass/Vol] 1.6 mg/dL Low 1.9-2.7 [facility] Comment on above: Performed By: #### L [id number] ####[facility] ([facility])[address] [facility] [place] [address] POCT GLUCOSE METER UNSOLICIT ED RESULTSon 08-27-2023 Glucose [Mass/Vol] 328 mg/dL High 70-105 [facility] Comment on above: Order Comment: Waive d Testing in the ED is performed under the ED CLIA certificate #[id number]. Result Comment: [email or web address] Performed By: #### L [id number] ####[facility] ([facility])[address] [place] [address] Glucose [Mass/Vol] 236 mg/dL High 70-105 [facility] Comment on above: Order Comment: Waive d Testing in the ED is performed under the ED CLIA certificate #[id number]. Result Comment: [email or web address] Performed By: #### L [id number] ####[facility] ([facility])[address] [place] [address] Glucose [Mass/Vol] 224 mg/dL High 70-105 [facility] Comment on above: Order Comment: Waive d Testing in the ED is performed under the ED CLIA certificate #[id number]. Result Comment: [email or web address] Performed By: #### L [id number] ####[facility] ([facility])[address] [place] [address] Glucose [Mass/Vol] 263 mg/dL High 70-105 [facility] Comment on above: Order Comment: Waive d Testing in the ED is performed under the ED CLIA certificate #[id number]. Result Comment: [email or web address] Performed By: #### L [id number] ####[facility] ([facility])[address] [place] [address] Glucose [Mass/Vol] 232 mg/dL High 70-105 [facility] Comment on above: Order Comment: Waive d Testing in the ED is performed under the ED CLIA certificate #[id number]. Result Comment: [email or web address] Performed By: #### L [id number] ####[facility] ([facility])[address] [place] [address] TROPONIN Ion 08-27-2023 Troponin I.cardiac [Mass/Vol] 0.01 ng/mL Normal 0.00-0.04 [facility] Comment on above: Performed By: #### L [id number] ####[facility] ([facility])[address] [place] [address] VALPROIC ACID LEVEL, TOTALon 08-27-2023 VALPROATE (UG/ML) IN SER/PLAS 19 ug/mL Low 60-100 [facility] Comment on above: Performed By: #### L [id number] ####[facility] ([facility])[address] [place] [address] Estimated glomerular filtrat ion rate (GFR) non- Americanon 08-05-2023 GFR/1.73 sq M.predicted among non-blacks MDRD (S/P/Bld) [Vol rate/Area] mL/min/{1.73_m2} >=60 [facility] - Chemistry and C hemistry - challengeon 08-05-2023 Calcium [Mass/Vol] 9.3 mg/dL 8.5-10.1 [facility] Chloride [Moles/Vol] 98 mmol/L 98-107 [facility] CO2 [Moles/Vol] 32.2 mmol/L 21.0-32.0 [facility] Creatinine [Mass/Vol] 1.18 mg/dL 0.70-1.30 [facility] GFR/1.73 sq M.predicted MDRD (S/P/Bld) [Vol rate/Area] mL/min/{1.73_m2} >=60 [facility] Glucose [Mass/Vol] 154 mg/dL 74-106 [facility] Potassium [Moles/Vol] 4.0 mmol/L 3.5-5.1 [facility] Sodium [Moles/Vol] 139 mmol/L 136-145 [facility] Urea nitrogen [Mass/Vol] 34.0 mg/dL 7.0-18.0 [facility] Urea nitrogen/Creatinine [Mass ratio] 28.8 mg/mg [facility] Serum or plasma anion gap de terminationon 08-05-2023 Anion gap [Moles/Vol] 12.8 mmol/L [facility] Orders Onlyon 08-03-2023 Orders Only [id number] Matt Wolff 1960 M Date Provider Department Center 08/03/2023 [facility]TE [facility]E [facility] [place] Count Family History Family history unknown: Yes Normal [facility] 29on 07-30-2023 29 Addended by: HOUSTON RIDDLE on: 07/30/2023 04:01 PM Modules accepted: Orders [facility] Follow-Upon 07-30-2023 Follow-Up [facility] TISSUE CULTUREon 07-30-2023 cefTRIAXone [Susc] <=1 [facility] Comment on above: Performed By: #### L [id number] ####[facility] ([facility])[address] [place] [address] Ciprofloxacin [Susc] >2 Resistant Univ [facility] Comment on above: Performed By: #### L [id number] ####[facility] ([facility])[address] [place] [address] Gentamicin [Susc] <=2 [facility] Comment on above: Performed By: #### L [id number] ####[facility] ([facility])[address] [place] [address] Piperacillin+Tazobact am [Susc] <=2/4 Susceptible [facility] Comment on above: Performed By: #### L [id number] ####[facility] ([facility])[address] , [place] [address] Tobramycin [Susc] <=2 Susceptible [facility] Comment on above: Performed By: #### L [id number] ####[facility] ([facility])[address] [place] [address] Trimethoprim+Sulfamet hoxazole [Susc] >2/38 Resistant [facility] Comment on above: Performed By: #### L [id number] ####[facility] ([facility])[address] [place] [address] Consent for Treatmenton 05-13 Consent for Treatment [id number]#1.00TIFF [facility] Nursing Assessment - Woundon 06-10-2023 Nursing Assessment - Wound [id number]#1.00TIFF Normal [facility] Nursing Note - Woundon 06-10 Nursing Note - Wound [id number]#1.00TIFF Normal [facility] Physician Orderon 06-10-2023 Physician Order [id number]#1.00TIFF Normal [facility] Procedure - Woundon 06-10-19 Procedure - Wound [id number]#1.00TIFF Normal [facility] Progress Note - Woundon 05-13 Progress Note - Wound [id number]#1.00TIFF Normal [facility] Basic Metabolic Panelon 05-13 GFR/1.73 sq M.predicted MDRD (S/P/Bld) [Vol rate/Area] mL/min/{1.73_m2} Normal [facility] Comment on above: Performed By: #### B MP #### [facility] [address] Calcium [Mass/volume] in Ser um or PlasmaOrdered By: Janet Gomez on 06-09-2023 Calcium [Mass/Vol] 8.7 mg/dL Normal 8.6-10.3 [facility] Comment on above: Result Comment: PERF ORMED BY: [place] [address] PATHOLOGIST [employer]PER[employer] JULIANNE VELASQUEZ M.D. Performed By: #### B MP #### [facility] [address] [place] [address] [place] Carbon dioxide, total [Moles /volume] in Serum or PlasmaOrdered By: Janet Gomez on 06-09-2023 CO2 [Moles/Vol] 25.3 mmol/L Normal 21.0-31.0 [facility] Comment on above: Performed By: #### B MP #### [facility] [address] Chloride [Moles/volume] in S shantanu or PlasmaOrdered By: Janet Gomez on 06-09-2023 Chloride [Moles/Vol] 104 mmol/L Normal 98-107 [facility] Comment on above: Performed By: #### B MP #### [address] Creatinine [Mass/volume] in Serum or PlasmaOrdered By: Janet Gomez on 06-09-2023 Creatinine [Mass/Vol] 1.09 mg/dL Normal 0.70-1.30 [facility] Comment on above: Performed By: #### B MP #### [address] Glucose [Mass/volume] in Ser um or PlasmaOrdered By: Janet Gomez on 06-09-2023 Glucose [Mass/Vol] 125 mg/dL High 70-100 [facility] Comment on above: ADA recommended refe rence rangeRandom Glucose Reference Range is dependent on time and content of last meal. Glucose of more than 200 mg/dL in a nonstressed, ambulatory subject supports the diagnosis of Diabetes Mellitus. Result Comment: [place] om Glucose Reference Range is dependent on time and content of last meal. Glucose of more than 200 mg/dL in a nonstressed, ambulatory subject supports the diagnosis of Diabetes Mellitus. ADA recommended reference range Performed By: #### B MP #### [address] No Panel InformationOrdered By: Janet Gomez on 06-09-2023 Estimated GFR (CKD-EPI) > 60.0 mL/Min [facility] Creatinine Clearance (Chem N/A [facility] Potassium [Moles/volume] in Serum or PlasmaOrdered By: Janet Gomez on 06-09-2023 Potassium [Moles/Vol] 5.0 mmol/L Normal 3.5-5.1 [facility] Comment on above: Performed By: #### B MP #### [address] [place] [address] [place] Serum or plasma anion gap de terminationOrdered By: Janet Gomez on 06-09-2023 Anion gap [Moles/Vol] 11.7 mmol/L Normal 6.0-15.0 [facility] Comment on above: Performed By: #### B MP #### [place] [address] [place] Sodium [Moles/volume] in Ser um or PlasmaOrdered By: Janet Jacquestahoward on 06-09-2023 Sodium [Moles/Vol] 136 mmol/L Normal 136-145 [facility] Comment on above: Performed By: #### B MP #### [address] Urea nitrogen [Mass/volume] in Serum or PlasmaOrdered By: Janet Jacquestahawmonika on 06-09-2023 Urea nitrogen [Mass/Vol] 29 mg/dL High 7-25 [facility] Comment on above: Performed By: #### B MP #### [place] [address] [place] Valproate [Mass/volume] in S shantanu or PlasmaOrdered By: Helen Sanford on 06-09-2023 Valproate [Mass/Vol] 18.9 ug/mL 50.0-100.0 [facility] Comment on above: Last dose: - Valproic Acid (in house)on 0 06-09-2023 Valproic Acid (in house) 18.9 ug/mL Low 50.0-100.0 [facility] Comment on above: Order Comment: Reaso n for Exam Bipolar depression;Medication management Date of last dose?: [id number] Time of last dose?: 1899 Result Comment: Last dose: - PERFORMED BY: [place] [address] PATHOLOGIST [employer] SUPERVISOR JULIANNE VELASQUEZ M.D. Performed By: #### V ALP #### [address] Consent for Procedure/Surger yon 05-20-2023 Consent for Procedure/Surgery [id number]#1.00TIFF [facility] Consent for Treatmenton 05-11 Consent for Treatment [id number]#1.00TIFF [facility] Multi-Wound Charton 05-20-19 24 Multi-Wound Chart [id number]#1.00TIFF [facility] Nursing Assessment - Woundon 05-20-2023 Nursing Assessment - Wound [id number]#1.00TIFF [facility] Nursing Note - Woundon 05-20 Nursing Note - Wound [id number]#1.00TIFF [facility] Physician Orderon 05-20-2023 Physician Order [id number]#1.00TIFF [facility] Procedure - Woundon 05-20-19 Procedure - Wound [id number]#1.00TIFF [facility] Progress Note - Woundon 05-11 Progress Note - Wound [id number]#1.00TIFF [facility] Consent for Procedure/Surger yon 05-06-2023 Consent for Procedure/Surgery [id number]#1.00TIFF [facility] Consent for Treatmenton 04-11 Consent for Treatment [id number]#1.00TIFF [facility] Multi-Wound Charton 05-06-20 23 Multi-Wound Chart [id number]#1.00TIFF [facility] Nursing Assessment - Woundon 05-06-2023 Nursing Assessment - Wound [id number]#1.00TIFF Normal [facility] Nursing Note - Woundon 05-06 Nursing Note - Wound [id number]#1.00TIFF Normal [facility] Physician Orderon 05-06-2023 Physician Order [id number]#1.00TIFF Normal [facility] Procedure - Woundon 05-06-20 Procedure - Wound [id number]#1.00TIFF Normal [facility] Progress Note - Woundon 04-11 Progress Note - Wound [id number]#1.00TIFF Normal [facility] Alanine aminotransferase [En zymatic activity/volume] in Serum or PlasmaOrdered By: Suraj Llanos on 04-23-2023 ALT [Catalytic activity/Vol] 9 U/L 7-52 [facility] Albumin [Mass/volume] in Ser um or Plasma by Bromocresol green (BCG) dye binding methoOrdered By: Suraj Llanos on 04-23-2023 Albumin BCG dye [Mass/Vol] 3.7 g/dL 3.5-5.7 [facility] Alkaline phosphatase [Enzyma tic activity/volume] in Serum or PlasmaOrdered By: Suraj Llanos on 04-23-2023 ALP [Catalytic activity/Vol] 69 U/L 34-104 [facility] Aspartate aminotransferase [ Enzymatic activity/volume] in Serum or PlasmaOrdered By: Suraj Llanos on 04-23-2023 AST [Catalytic activity/Vol] 13 U/L 13-39 [facility] Basophils Auto (Bld) [#/Vol] Ordered By: Suraj Llanos on 04-23-2023 Basophils (Bld) [#/Vol] 0.1 10*3/uL 0.0-0.2 [facility] Basophils/100 WBC Auto (Bld) Ordered By: Suraj Llanos on 04-23-2023 Basophils/100 WBC (Bld) 1.0 % . [facility] Bilirubin.total [Mass/volume ] in Serum or PlasmaOrdered By: Suraj Llanos on 04-23-2023 Bilirubin [Mass/Vol] 0.4 mg/dL 0.3-1.0 [facility] Calcium [Mass/volume] in Ser um or PlasmaOrdered By: Suraj Llanos on 04-23-2023 Calcium [Mass/Vol] 8.9 mg/dL 8.6-10.3 [facility] Carbon dioxide, total [Moles /volume] in Serum or PlasmaOrdered By: Suraj Llanos on 04-23-2023 CO2 [Moles/Vol] 28.1 mmol/L 21.0-31.0 [facility] Chloride [Moles/volume] in S shantanu or PlasmaOrdered By: Suraj Llanos on 04-23-2023 Chloride [Moles/Vol] 101 mmol/L 98-107 [facility] Creatinine [Mass/volume] in Serum or PlasmaOrdered By: Suraj Llanos on 04-23-2023 Creatinine [Mass/Vol] 0.89 mg/dL 0.70-1.30 [facility] Eosinophils Auto (Bld) [#/Vo l]Ordered By: Suraj Llanos on 04-23-2023 Eosinophils (Bld) [#/Vol] 0.2 10*3/uL 0.0-0.45 [facility] Eosinophils/100 WBC Auto (Bl d)Ordered By: Suraj Llanos on 04-23-2023 Eosinophils/100 WBC (Bld) 3.0 % . [facility] Erythrocyte distribution wid th Auto (RBC) [Ratio]Ordered By: Suraj Llanos on 04-23-2023 Erythrocyte distribution width (RBC) [Ratio] 16.6 % 12.0-14.8 [facility] Globulin Calc (S) [Mass/Vol] Ordered By: Suraj Llanos on 04-23-2023 Globulin (S) [Mass/Vol] 3.8 g/dL [facility] Glucose [Mass/volume] in Ser um or PlasmaOrdered By: Suraj Llanos on 04-23-2023 Glucose [Mass/Vol] 130 mg/dL 70-100 [facility] Comment on above: ADA recommended refe rence rangeRandom Glucose Reference Range is dependent on time and content of last meal. Glucose of more than 200 mg/dL in a nonstressed, ambulatory subject supports the diagnosis of Diabetes Mellitus. Hematocrit Auto (Bld) [Volum e fraction]Ordered By: Suraj Llanos on 04-23-2023 Hematocrit (Bld) [Volume fraction] 32.4 % 38.8-50.0 [facility] Hemoglobin [Mass/volume] in BloodOrdered By: Suraj Llanos on 04-23-2023 Hemoglobin (Bld) [Mass/Vol] 10.4 g/dL 13.0-17.0 [facility] Leukocytes [#/volume] correc alicia for nucleated erythrocytes in Blood by Automated counOrdered By: Suraj Llanos on 04-23-2023 WBC corrected for nucl RBC Auto (Bld) [#/Vol] 8.1 10*3/uL 4.1-10.5 [facility] Lipase [Enzymatic activity/v olume] in Serum or PlasmaOrdered By: Suraj Llanos on 04-23-2023 Lipase [Catalytic activity/Vol] 64.0 U/L 11.0-82.0 [facility] Lymphocytes Auto (Bld) [#/Vo l]Ordered By: Surja Llanos on 04-23-2023 Lymphocytes (Bld) [#/Vol] 2.0 10*3/uL 1.00-4.8 [facility] Lymphocytes/100 WBC Auto (Bl d)Ordered By: Suraj Llanos on 04-23-2023 Lymphocytes/100 WBC (Bld) 24.4 % . [facility] MCH Auto (RBC) [Entitic mass ]Ordered By: Suraj Llanos on 04-23-2023 MCH (RBC) [Entitic mass] 24.7 pg 27.5-35.2 [facility] MCHC Auto (RBC) [Mass/Vol]Or dered By: Suraj Llanos on 04-23-2023 MCHC (RBC) [Mass/Vol] 32.1 g/dL 32.5-35.6 [facility] MCV Auto (RBC) [Entitic vol] Ordered By: Suraj Llanos on 04-23-2023 MCV (RBC) [Entitic vol] 76.7 fL 83.5-101 [facility] Monocytes Auto (Bld) [#/Vol] Ordered By: Suraj Llanos on 04-23-2023 Monocytes (Bld) [#/Vol] 0.7 10*3/uL 0.0-0.8 [facility] Monocytes/100 WBC Auto (Bld) Ordered By: Suraj Llanos on 04-23-2023 Monocytes/100 WBC (Bld) 8.2 % . [facility] Neutrophils Auto (Bld) [#/Vo l]Ordered By: Suraj Llanos on 04-23-2023 Neutrophils (Bld) [#/Vol] 5.2 10*3/uL 1.8-7.7 [facility] Neutrophils/100 WBC Auto (Bl d)Ordered By: Suraj Llanos on 04-23-2023 Neutrophils/100 WBC (Bld) 63.4 % . [facility] No Panel InformationOrdered By: Suraj Llanos on 04-23-2023 Estimated GFR (CKD-EPI) > 60.0 mL/Min [facility] Creatinine Clearance (Chem N/A [facility] Nucleated erythrocytes [Pres ence] in Blood by Automated countOrdered By: Suraj Llanos on 04-23-2023 Nucleated RBC Auto Ql (Bld) 0.1 /100{WBC} 0-0.5 [facility] Platelet mean volume Auto (B ld) [Entitic vol]Ordered By: Suraj Llanos on 04-23-2023 Platelet mean volume (Bld) [Entitic vol] 9.1 fL 6.6-10.1 [facility] Platelets Auto (Bld) [#/Vol] Ordered By: Suraj Llanos on 04-23-2023 Platelets (Bld) [#/Vol] 276 10*3/uL 150-450 [facility] Potassium [Moles/volume] in Serum or PlasmaOrdered By: Suraj Llanos on 04-23-2023 Potassium [Moles/Vol] 4.7 mmol/L 3.5-5.1 [facility] Prescriptions/Work Noteson 1 06-24-2022 Prescriptions/Work Notes [id number]#1.00TIFF Normal [facility] Prescriptions/Work Notes [id number]#1.00TIFF Normal [facility] Protein [Mass/volume] in Ser um or PlasmaOrdered By: Suraj Llanos on 04-23-2023 Protein [Mass/Vol] 7.5 g/dL 6.4-8.9 [facility] RBC Auto (Bld) [#/Vol]Ordere d By: Suraj Llanos on 04-23-2023 RBC (Bld) [#/Vol] 4.23 10*6/uL 3.90-5.60 [facility] Serum or plasma albumin/glob ulin mass ratioOrdered By: Suraj Llanos on 04-23-2023 Albumin/Globulin [Mass ratio] 1.0 {ratio} [facility] Serum or plasma anion gap de terminationOrdered By: Suraj Llanos on 04-23-2023 Anion gap [Moles/Vol] 10.6 mmol/L 6.0-15.0 [facility] Sodium [Moles/volume] in Ser um or PlasmaOrdered By: Suraj Llanos on 04-23-2023 Sodium [Moles/Vol] 135 mmol/L 136-145 [facility] Urea nitrogen [Mass/volume] in Serum or PlasmaOrdered By: Suraj Llanos on 04-23-2023 Urea nitrogen [Mass/Vol] 26 mg/dL 7-25 [facility] WBC Auto (Bld) [#/Vol]Ordere d By: Suraj Llanos on 04-23-2023 WBC (Bld) [#/Vol] 8.1 10*3/uL 4.1-10.5 [facility] Consent for Procedure/Surger yon 03-11-2023 Consent for Procedure/Surgery [id number]#1.00TIFF Normal [facility] Consent for Treatmenton Consent for Treatment [id number]#1.00TIFF Normal [facility] Multi-Wound Charton 03-11-20 Multi-Wound Chart [id number]#1.00TIFF [facility] Nursing Assessment - Woundon 03-11-2023 Nursing Assessment - Wound [id number]#1.00TIFF [facility] Nursing Note - Woundon 03-11 Nursing Note - Wound [id number]#2.00TIFF [facility] Physician Orderon 03-11-2023 Physician Order [id number]#1.00TIFF [facility] Procedure - Woundon 03-11-20 Procedure - Wound [id number]#1.00TIFF [facility] Progress Note - Woundon - Progress Note - Wound [id number]#1.00TIFF [facility] Consent for Procedure/Surger yon 03-03-2023 Consent for Procedure/Surgery [id number]#1.00TIFF [facility] Consent for Treatmenton 02-09 Consent for Treatment [id number]#1.00TIFF [facility] Consent to Photographon 02-09 Consent to Photograph [id number]#1.00TIFF [facility] Correspondence - Woundon Correspondence - Wound [id number]#1.00TIFF [facility] Correspondence - Wound [id number]#1.00TIFF [facility] Multi-Wound Charton 03-03-20 Multi-Wound Chart [id number]#1.00TIFF Normal [facility] Nursing Assessment - Woundon 03-03-2023 Nursing Assessment - Wound [id number]#1.00TIFF Normal [facility] Nursing Assessment - Wound [id number]#1.00TIFF Normal [facility] Physician Orderon 03-03-2023 Physician Order [id number]#1.00TIFF Normal [facility] Procedure - Woundon 03-03-20 Procedure - Wound [id number]#1.00TIFF Normal [facility] Progress Note - Woundon 02-09 Progress Note - Wound [id number]#1.00TIFF [facility] Consent for Treatmenton 02-08 Consent for Treatment [id number]#1.00TIFF [facility] Discharge Instructionson Discharge Instructions [id number]#1.00TIFF [facility] ED Clinical Summaryon 2022 ED Clinical Summary Normal [facility] ED Note-Physicianon 02-27-20 ED Note-Physician Normal [facility] Comment on above: Result Comment: Elec tronically Signed By: Derrick Benson DO\Date and Time Signed: 02/26/23 21:08 EDT ED Patient Education Noteon 02-26-2023 ED Patient Education Note Normal [facility] ED Patient Summaryon 023 ED Patient Summary Normal [facility] Operative Reporton Operative Report Normal [facility] Comment on above: Result Comment: Elec tronically Signed By: Santos Epperson DPM.br\Date and Time Signed: 02/18/23 11:01 EDT C Blood Charcoalon 3 Blood Culture Charcoal Normal [facility] Comment on above: Performed By: #### 1 [id number] ####[facility] [address] [place] [address] Blood Culture Charcoal [facility] Comment on above: Performed By: #### 1 2015196 ####[facility] [address] [place] [address] C Blood Charcoalon 3 Blood Culture Charcoal Normal [facility] Comment on above: Performed By: #### 1 [id number] ####[facility] [address] [place] [address] Consent for PICC lineon Consent for PICC line [id number]#1.00TIFF [facility] Discharge Instructionson Discharge Instructions [id number]#1.00TIFF [facility] General Message Officeon General Message Office [facility] Medication Listson 3 Medication Lists [id number]#1.00CD:127 [facility] Transfer Documentson 023 Transfer Documents [id number]#1.00CD:127 Normal [facility] Transfer Documents [id number]#1.00CD:127 [facility] Transfer Documents [id number]#1.00CD:127 [facility] Transfer Documents [id number]#1.00CD:127 [facility] Capillary Glucose POCon Glucose [Mass/Vol] 172 mg/dL High 55-99 [facility] Comment on above: Result Comment: Mary COLLAZO Performed By: #### 2 [id number] ####[facility] [address] [place] [address] Glucose [Mass/Vol] 211 mg/dL High 55-99 [facility] Comment on above: Result Comment: Mary COLLAZO Performed By: #### 2 [id number] ####[facility] [address] [place] [address] Glucose [Mass/Vol] 162 mg/dL High 55-99 [facility] Comment on above: Result Comment: Mary flores RN/ Performed By: #### 2 [id number] ####[facility] [address] [place] [address] Coding Queryon 02-11-2023 Coding Query Normal [facility] Discharge Note-Nursingon Discharge Note-Nursing Normal [facility] Inpatient Clinical Summaryon 02-11-2023 Inpatient Clinical Summary Normal [facility] Inpatient Patient Summaryon 02-11-2023 Inpatient Patient Summary Normal [facility] Interdisciplinary Note - Virgil e Manageron 02-11-2023 Interdisciplinary Note - Economist Research Assistant Normal [facility] Comment on above: Result Comment: Elec tronically Signed By: Franci Peace\.domenic\Date and Time Signed: 02/11/23 10:41 EDT XR Chest Single Viewon 02-11 XR Chest Single View Normal [facility] BMPon 02-10-2023 Anion gap [Moles/Vol] 8 mmol/L Normal 6-16 [facility] Comment on above: Performed By: #### 2 055629, 24771823, 7036423 ####[facility] [address] [place] [address] Calcium [Mass/Vol] 8.8 mg/dL Low 8.9-11.1 [facility] Comment on above: Performed By: #### 2 134874, 04316923, 5335405 ####[facility] [address] [place] [address] Chloride [Moles/Vol] 112 mmol/L High 101-111 [facility] Comment on above: Performed By: #### 2 015991, 35215299, 2521356 ####[facility] [address] [place] [address] CO2 [Moles/Vol] 25 mmol/L Normal 21-31 [facility] Comment on above: Performed By: #### 2 308357, 77227348, 4663746 ####[facility] [address] [place] [address] Creatinine [Mass/Vol] 0.9 mg/dL Normal 0.5-1.3 [facility] Comment on above: Performed By: #### 2 689116, 31430241, 7068114 ####[facility] [address] [place] [address] Glucose [Mass/Vol] 149 mg/dL Normal 55-199 [facility] Comment on above: Result Comment: If t his glucose result represents a fasting glucose, interpretation should refer to the following reference range: 55-99 mg/dL Performed By: #### 2 030419, 06473254, 1534186 ####[facility] [address] [place] [address] Potassium [Moles/Vol] 3.9 mmol/L Normal 3.5-5.3 [facility] Comment on above: Performed By: #### 2 471910, 97443643, 2401247 ####[facility] [address] [place] [address] Sodium [Moles/Vol] 141 mmol/L Normal 135-145 [facility] Comment on above: Performed By: #### 2 361902, 88514757, 5115587 ####[facility] [address] [place] [address] Urea nitrogen [Mass/Vol] 17 mg/dL Normal 5-21 [facility] Comment on above: Performed By: #### 2 360063, 02977276, 0530223 ####[facility] [address] [place] [address] Urea nitrogen/Creatinine [Mass ratio] 19 No Units Normal 10-20 [facility] Comment on above: Performed By: #### 2 107243, 43200023, 3647041 ####[facility] [address] [place] [address] C Blood Charcoalon 3 Blood Culture Charcoal Normal [facility] Comment on above: Performed By: #### 1 1484615 ####[facility] [address] [place] [address] CBC w/Indiceson 02-10-2023 Erythrocyte distribution width (RBC) [Ratio] 17.1 % High 10.9-14.2 [facility] Comment on above: Performed By: #### 2 967360, 20486378, 6768319 ####[facility] [address] [place] [address] Hematocrit (Bld) [Volume fraction] 23.4 % Low 37.7-49.0 [facility] Comment on above: Performed By: #### 2 930877, 91633581, 0259027 ####[facility] [address] [place] [address] Hemoglobin (Bld) [Mass/Vol] 7.6 g/dL Low 13.5-17.5 [facility] Comment on above: Performed By: #### 2 726303, 71145337, 4624430 ####[facility] [address] [place] [address] MCH (RBC) [Entitic mass] 25.6 pg Low 27.0-34.0 [facility] Comment on above: Performed By: #### 2 067145, 54354608, 9726883 ####[facility] [address] [place] [address] MCHC (RBC) [Mass/Vol] 32.5 g/dL Normal 31.4-36.0 [facility] Comment on above: Performed By: #### 2 455448, 86134601, 3277126 ####[facility] [address] [place] [address] MCV (RBC) [Entitic vol] 78.8 fL Low 80.0-100.0 [facility] Comment on above: Performed By: #### 2 030540, 24400456, 9997039 ####[facility] [address] [place] [address] Platelet mean volume (Bld) [Entitic vol] 7.7 fL Normal 6.4-10.8 [facility] Comment on above: Performed By: #### 2 816349, 50144669, 9005870 ####[facility] [address] [place] [address] Platelets (Bld) [#/Vol] 411.0 E9/L Normal 150.0-500.0 [facility] Comment on above: Performed By: #### 2 431555, 09726072, 1973641 ####[address] [address] RBC (Bld) [#/Vol] 3.0 E12/L Low 4.3-5.9 [facility] Comment on above: Performed By: #### 2 703854, 72314346, 7446253 ####[address] [address] WBC corrected for nucl RBC Auto (Bld) [#/Vol] 7.2 E9/L Normal 4.0-11.0 [facility] Comment on above: Performed By: #### 2 987341, 96220532, 4252405 ####[facility] [address] [place] [address] Capillary Glucose POCon 10-0 -2022 Glucose [Mass/Vol] 193 mg/dL High 55-99 [facility] Comment on above: Result Comment: Mary COLLAZO Performed By: #### 2 35773708 ####[facility] [address] [place] [address] Glucose [Mass/Vol] 193 mg/dL High 55-99 [facility] Comment on above: Result Comment: aMry COLLAZO Performed By: #### 2 88758710 ####[facility] [address] [place] [address] Glucose [Mass/Vol] 239 mg/dL High 55-99 [facility] Comment on above: Result Comment: Mary flores RN/ Performed By: #### 2 80151782 ####[facility] [address] [place] [address] Glucose [Mass/Vol] 138 mg/dL High 55-99 [facility] Comment on above: Result Comment: Mary flores RN/ Performed By: #### 2 87642793 ####[facility] [address] [place] [address] Consent for Anesthesiaon Consent for Anesthesia [id number]#1.00CD:127 Normal [facility] Consultation Noteon 02-11-20 Consultation Note Normal [facility] Comment on above: Result Comment: Elec tronically Signed By: Ronaldo Arcos M.D\Date and Time Signed: 02/10/23 14:37 EDT Interdisciplinary Note - Virgil e Manageron 02-10-2023 Interdisciplinary Note - Economist Research Assistant Pt was asleep. Plan for Dr Arcos to see to day. Pt will be going to [facility], via van. 2nd copy of Medicare Rights form given at bedside. ANt dc 02/10. CRM to follow. Pt will need PICC line. This will be completed tomorrow. Ant dc to [facility] tomorrow. Normal [facility] Comment on above: Result Comment: Elec tronically Signed By: Franci Peace\Date and Time Signed: 02/10/23 14:51 EDT IntraOperative Documentson 1 IntraOperative Documents [id number]#1.00CD:127 Normal [facility] IntraOperative Documents [id number]#1.00CD:127 Normal [facility] Progress Note-Nurseon 2022 Progress Note-Nurse Normal [facility] Progress Note-Physicianon Progress Note-Physician Normal [facility] Comment on above: Result Comment: Elec tronically Signed By: Javon Edwards DO\Date and Time Signed: 02/10/23 15:33 EDT eGFRon 02-10-2023 GFR/1.73 sq M.predicted among non-blacks MDRD (S/P/Bld) [Vol rate/Area] 97 mL/min/1.73 m2 Normal >=59 [facility] Comment on above: Order Comment: Order added by Discern Expert. Result Comment: Product Analyst claus kidney disease could be indicated at eGFR's of less than 60 mL/min/1.73m2. Kidney failure is indicated at less than 15 mL/min/1.73m2. Performed By: #### 2 069388, 44419894, 6424673 ####[facility] [address] [place] [address] Auto Diffon 02-09-2023 Basophils/100 WBC (Bld) 0.7 % Normal 0.0-2.0 [facility] Comment on above: Order Comment: Order Added by Discern Expert. Performed By: #### 2 684285, 25292755, 5920848, 5559611, 1076069, 2703505 ####[facility] [address] [place] [address] Basophils/Leukocytes Auto (Bld) [Pure # fraction] 0.0 E9/L Normal 0.0-0.2 [facility] Comment on above: Order Comment: Order Added by Discern Expert. Performed By: #### 2 249842, 71480406, 0570118, 3906565, 0480947, 6419975 ####[facility] [address] [place] [address] Eosinophils/100 WBC (Bld) 7.4 % Normal 0.0-8.0 [facility] Comment on above: Order Comment: Order Added by Discern Expert. Performed By: #### 2 919177, 89796772, 1277700, 9218962, 0202132, 3224362 ####[place] [address] Eosinophils/Leukocyte s Auto (Bld) [Pure # fraction] 0.5 E9/L Normal 0.0-0.5 [facility] Comment on above: Order Comment: Order Added by Discern Expert. Performed By: #### 2 883688, 74302549, 6233205, 1447668, 6937557, 4395142 ####[address] [address] Lymphocytes/100 WBC (Bld) 28.1 % Normal 14.0-50.0 [facility] Comment on above: Order Comment: Order Added by Discern Expert. Performed By: #### 2 325131, 71173219, 9446510, 2327375, 7194436, 1483868 ####[address] [address] Lymphocytes/Leukocyte s Auto (Bld) [Pure # fraction] 2.0 E9/L Normal 1.0-4.0 [facility] Comment on above: Order Comment: Order Added by Discern Expert. Performed By: #### 2 989495, 70134902, 2281205, 6986068, 5235874, 1600334 ####[address] [address] Monocytes/100 WBC (Bld) 14.2 % High 4.0-14.0 [facility] Comment on above: Order Comment: Order Added by Discern Expert. Performed By: #### 2 795622, 41978148, 7139720, 8681833, 2602272, 3856691 ####[address] [address] Monocytes/Leukocytes Auto (Bld) [Pure # fraction] 1.0 E9/L Normal 0.2-1.0 [facility] Comment on above: Order Comment: Order Added by Discern Expert. Performed By: #### 2 541117, 39689314, 1763921, 2182144, 7240983, 5663268 ####[address] [address] Neutrophils/100 WBC (Bld) 49.6 % Normal 36.0-75.0 [facility] Comment on above: Order Comment: Order Added by Discern Expert. Performed By: #### 2 763293, 01565089, 5307150, 3443904, 0193814, 7002213 ####[facility] [address] [place] [address] Neutrophils/Leukocyte s Auto (Bld) [Pure # fraction] 3.5 E9/L Normal 2.0-7.5 [facility] Comment on above: Order Comment: Order Added by Discern Expert. Performed By: #### 2 007323, 30267621, 4711099, 3967554, 4114402, 9022438 ####[address] [place] [address] BUNon 02-09-2023 Urea nitrogen [Mass/Vol] 30 mg/dL High 5-21 [facility] Comment on above: Performed By: #### 2 549750, 85915627, 2785174, 4601840, 2824508, 7621719 ####[address] [place] [address] CBC w/ Auto Diffon Erythrocyte distribution width (RBC) [Ratio] 17.1 % High 10.9-14.2 [facility] Comment on above: Performed By: #### 2 910006, 83023527, 8095374, 7819713, 1905982, 0637577 ####[address] [place] [address] Hematocrit (Bld) [Volume fraction] 23.9 % Low 37.7-49.0 [facility] Comment on above: Performed By: #### 2 238403, 51151985, 7199168, 0550011, 4885921, 1129245 ####[facility] [address] [place] [address] Hemoglobin (Bld) [Mass/Vol] 7.8 g/dL Low 13.5-17.5 [facility] Comment on above: Performed By: #### 2 593568, 91343890, 1785452, 6983544, 7000584, 1472618 ####[address] MCH (RBC) [Entitic mass] 25.6 pg Low 27.0-34.0 [facility] Comment on above: Performed By: #### 2 525629, 35791862, 7191231, 3743465, 3682377, 3211352 ####[address] MCHC (RBC) [Mass/Vol] 32.7 g/dL Normal 31.4-36.0 [facility] Comment on above: Performed By: #### 2 731779, 63610990, 4830346, 6869916, 9870621, 7894188 ####[address] MCV (RBC) [Entitic vol] 78.2 fL Low 80.0-100.0 [facility] Comment on above: Performed By: #### 2 922310, 43223070, 8186944, 0712895, 4882918, 6890223 ####[address] Platelet mean volume (Bld) [Entitic vol] 8.0 fL Normal 6.4-10.8 [facility] Comment on above: Performed By: #### 2 157225, 58253613, 1283671, 6057047, 6461333, 3056348 ####[address] Platelets (Bld) [#/Vol] 298.0 E9/L Normal 150.0-500.0 [facility] Comment on above: Performed By: #### 2 213323, 24669632, 1695988, 3612600, 2482886, 1686932 ####[address] RBC (Bld) [#/Vol] 3.0 E12/L Low 4.3-5.9 [facility] Comment on above: Performed By: #### 2 946053, 14504239, 5964235, 6842233, 4525130, 4520096 ####[facility] [address] [place] [address] WBC corrected for nucl RBC Auto (Bld) [#/Vol] 7.1 E9/L Normal 4.0-11.0 [facility] Comment on above: Performed By: #### 2 470009, 58509177, 1917515, 9002178, 8447293, 6804982 ####[facility] [address] [place] [address] Capillary Glucose POCon Glucose [Mass/Vol] 218 mg/dL High 55-99 [facility] Comment on above: Result Comment: Mary COLLAZO Performed By: #### 2 67501092 ####[address] [address] Glucose [Mass/Vol] 221 mg/dL High 55-99 [facility] Comment on above: Result Comment: Mary COLLAZO Performed By: #### 2 62034479 ####[address] [place] [address] Glucose [Mass/Vol] 191 mg/dL High 55-99 [facility] Comment on above: Result Comment: Mary COLLAZO Performed By: #### 2 37778130 ####[facility] [address] [place] [address] Glucose [Mass/Vol] 170 mg/dL High 55-99 [facility] Comment on above: Result Comment: Mary flores RN/ Performed By: #### 2 68139637 ####[facility] [address] [place] [address] Creatinineon 02-09-2023 Creatinine [Mass/Vol] 1.0 mg/dL Normal 0.5-1.3 [facility] Comment on above: Performed By: #### 2 088019, 12727340, 3506560, 7412773, 7961286, 0402292 ####[facility] [address] [place] [address] Interdisciplinary Note - Virgil e Manageron 02-09-2023 Interdisciplinary Note - Economist Research Assistant [facility] Comment on above: Result Comment: Elec tronically Signed By: Franci Peace\Date and Time Signed: 02/09/23 15:15 EDT Lyteson 02-09-2023 Anion gap [Moles/Vol] 13 mmol/L Normal 6-16 [facility] Comment on above: Performed By: #### 2 356261, 97069642, 4771718, 9035541, 8918380, 3060890 ####[facility] [address] [place] [address] Chloride [Moles/Vol] 110 mmol/L Normal 101-111 [facility] Comment on above: Performed By: #### 2 736620, 90927634, 9312529, 9135913, 6849583, 4310751 ####[facility] [address] [place] [address] CO2 [Moles/Vol] 24 mmol/L Normal 21-31 [facility] Comment on above: Performed By: #### 2 251409, 86349691, 7479770, 8552316, 5111539, 5934913 ####[facility] [address] [place] [address] Potassium [Moles/Vol] 3.8 mmol/L Normal 3.5-5.3 [facility] Comment on above: Performed By: #### 2 985784, 61826203, 7904969, 4619850, 2655875, 9103124 ####[facility] [address] [place] [address] Sodium [Moles/Vol] 143 mmol/L Normal 135-145 [facility] Comment on above: Performed By: #### 2 391659, 61192115, 7761438, 6844845, 0026063, 9003012 ####[facility] [address] [place] [address] Main OR Intraoperative Recor don 02-09-2023 Main OR Intraoperative Record Normal [facility] Progress Note - Pharmacyon 1 Progress Note - Pharmacy Normal [facility] Progress Note-Physicianon Progress Note-Physician Normal [facility] Comment on above: Result Comment: Elec tronically Signed By: Javon Edwards DO\Date and Time Signed: 02/09/23 11:40 EDT eGFRon 02-09-2023 GFR/1.73 sq M.predicted among non-blacks MDRD (S/P/Bld) [Vol rate/Area] 86 mL/min/1.73 m2 Normal >=59 [facility] Comment on above: Order Comment: Order added by Discern Expert. Result Comment: Product Analyst claus kidney disease could be indicated at eGFR's of less than 60 mL/min/1.73m2. Kidney failure is indicated at less than 15 mL/min/1.73m2. Performed By: #### 2 424034, 11688100, 2981573, 8167475, 5059327, 7867979 ####[facility] [address] [place] [address] Capillary Glucose POCon Glucose [Mass/Vol] 305 mg/dL High 55-99 [facility] Comment on above: Result Comment: Mary flores RN/ Performed By: #### 2 61609094 ####[facility] [address] [place] [address] Glucose [Mass/Vol] 216 mg/dL High 55-99 [facility] Comment on above: Result Comment: Mary flores RN/ Performed By: #### 2 73696552 ####[facility] [address] [place] [address] Glucose [Mass/Vol] 196 mg/dL High 55-99 [facility] Comment on above: Result Comment: Mary flores RN/ Performed By: #### 2 31058402 ####[facility] [address] [place] [address] Interdisciplinary Note - Virgil e Manageron 02-08-2023 Interdisciplinary Note - Economist Research Assistant Normal [facility] Comment on above: Result Comment: Elec tronically Signed By: Kamron EHRBERT, Teagan\.br\Date and Time Signed: 02/08/23 14:24 EDT Auto Diffon 02-06-2023 Basophils/100 WBC (Bld) 0.2 % Normal 0.0-2.0 [facility] Comment on above: Order Comment: Order Added by Discern Expert. Performed By: #### 2 102872, 34439072, 4536143, 5165048, 8171466 ####[address] [place] [address] Basophils/Leukocytes Auto (Bld) [Pure # fraction] 0.0 E9/L Normal 0.0-0.2 [facility] Comment on above: Order Comment: Order Added by Discern Expert. Performed By: #### 2 380876, 74079595, 2942912, 2795384, 1597780 ####[facility] [address] [place] [address] Eosinophils/100 WBC (Bld) 0.0 % Normal 0.0-8.0 [facility] Comment on above: Order Comment: Order Added by Discern Expert. Performed By: #### 2 954536, 93809323, 8447422, 5968828, 3125347 ####[address] [address] Eosinophils/Leukocyte s Auto (Bld) [Pure # fraction] 0.0 E9/L Normal 0.0-0.5 [facility] Comment on above: Order Comment: Order Added by Discern Expert. Performed By: #### 2 200362, 60259871, 5508608, 7996851, 9291446 ####[address] [address] Lymphocytes/100 WBC (Bld) 4.8 % Low 14.0-50.0 [facility] Comment on above: Order Comment: Order Added by Discern Expert. Performed By: #### 2 833278, 97857886, 9360838, 4376545, 6386680 ####[facility] [address] [place] [address] Lymphocytes/Leukocyte s Auto (Bld) [Pure # fraction] 0.5 E9/L Low 1.0-4.0 [facility] Comment on above: Order Comment: Order Added by Discern Expert. Performed By: #### 2 841219, 49967178, 3992807, 0362774, 1358716 ####[address] [place] [address] Monocytes/100 WBC (Bld) 10.4 % Normal 4.0-14.0 [facility] Comment on above: Order Comment: Order Added by Discern Expert. Performed By: #### 2 676594, 74379261, 6869203, 8139254, 3123896 ####[address] [address] Monocytes/Leukocytes Auto (Bld) [Pure # fraction] 1.0 E9/L Normal 0.2-1.0 [facility] Comment on above: Order Comment: Order Added by Discern Expert. Performed By: #### 2 060047, 18900987, 3357423, 6429994, 6107106 ####[address] [address] Neutrophils/100 WBC (Bld) 84.6 % High 36.0-75.0 [facility] Comment on above: Order Comment: Order Added by Discern Expert. Performed By: #### 2 611153, 03606623, 6928158, 0836825, 4818745 ####[address] [place] [address] Neutrophils/Leukocyte s Auto (Bld) [Pure # fraction] 8.1 E9/L High 2.0-7.5 [facility] Comment on above: Order Comment: Order Added by Discern Expert. Performed By: #### 2 416559, 54831429, 9757475, 1813424, 6647544 ####[facility] [address] [place] [address] BMPon 02-06-2023 Creatinine [Mass/Vol] 2.2 mg/dL High 0.5-1.3 [facility] Comment on above: Performed By: #### 2 927612, 45670050, 3702178, 5414063, 0864159 ####[facility] [address] [place] [address] Anion gap [Moles/Vol] 15 mmol/L Normal 6-16 [facility] Comment on above: Performed By: #### 2 286600, 41636134, 2265154, 4275656, 5023123 ####[facility] [address] [place] [address] Calcium [Mass/Vol] 8.4 mg/dL Low 8.9-11.1 [facility] Comment on above: Performed By: #### 2 510323, 95226145, 6508188, 6380549, 6266476 ####[facility] [address] [place] [address] Chloride [Moles/Vol] 96 mmol/L Low 101-111 [facility] Comment on above: Performed By: #### 2 479744, 01269864, 2431347, 2999824, 0014495 ####[facility] [address] [place] [address] CO2 [Moles/Vol] 20 mmol/L Low 21-31 [facility] Comment on above: Performed By: #### 2 855187, 45000232, 4740138, 2797392, 7500918 ####[facility] [address] [place] [address] Glucose [Mass/Vol] 144 mg/dL Normal 55-199 [facility] Comment on above: Result Comment: If t his glucose result represents a fasting glucose, interpretation should refer to the following reference range: 55-99 mg/dL Performed By: #### 2 246661, 91321204, 1999648, 0049725, 3340069 ####[facility] [address] [place] [address] Potassium [Moles/Vol] 4.2 mmol/L Normal 3.5-5.3 [facility] Comment on above: Performed By: #### 2 002659, 90447442, 2737599, 9549586, 5609793 ####[facility] [address] [place] [address] Sodium [Moles/Vol] 127 mmol/L Low 135-145 [facility] Comment on above: Performed By: #### 2 263453, 09599204, 4660244, 1904005, 5187719 ####[facility] [address] [place] [address] Urea nitrogen [Mass/Vol] 56 mg/dL High 5-21 [facility] Comment on above: Performed By: #### 2 142713, 06262963, 5877888, 5814096, 7891141 ####[facility] [address] [place] [address] Urea nitrogen/Creatinine [Mass ratio] 26 No Units High 10-20 [facility] Comment on above: Performed By: #### 2 075157, 95075153, 4805750, 6645965, 1545081 ####[facility] [address] [place] [address] CBC w/ Auto Diffon 3 Erythrocyte distribution width (RBC) [Ratio] 16.7 % High 10.9-14.2 [facility] Comment on above: Performed By: #### 2 566737, 34380186, 7955600, 6305036, 8973115 ####[facility] [address] [place] [address] Hematocrit (Bld) [Volume fraction] 28.8 % Low 37.7-49.0 [facility] Comment on above: Performed By: #### 2 626326, 88716251, 5403702, 7615293, 4722478 ####[facility] [address] [place] [address] Hemoglobin (Bld) [Mass/Vol] 9.7 g/dL Low 13.5-17.5 [facility] Comment on above: Performed By: #### 2 530189, 26896628, 4669537, 2612842, 9591725 ####[address] [address] MCH (RBC) [Entitic mass] 26.0 pg Low 27.0-34.0 [facility] Comment on above: Performed By: #### 2 316801, 45877424, 6893670, 1909029, 9016010 ####[address] [address] MCHC (RBC) [Mass/Vol] 33.7 g/dL Normal 31.4-36.0 [facility] Comment on above: Performed By: #### 2 458040, 66843158, 1679155, 0779817, 8159820 ####[address] MCV (RBC) [Entitic vol] 77.1 fL Low 80.0-100.0 [facility] Comment on above: Performed By: #### 2 739700, 19565883, 5117873, 3828264, 2707680 ####[address] [address] Platelet mean volume (Bld) [Entitic vol] 9.0 fL Normal 6.4-10.8 [facility] Comment on above: Performed By: #### 2 654469, 28557880, 6902866, 1853917, 3361931 ####[address] [address] Platelets (Bld) [#/Vol] 187.0 E9/L Normal 150.0-500.0 [facility] Comment on above: Performed By: #### 2 815181, 59932028, 6003179, 1641981, 5226080 ####[address] [address] RBC (Bld) [#/Vol] 3.7 E12/L Low 4.3-5.9 [facility] Comment on above: Performed By: #### 2 625205, 49465688, 3095579, 5904255, 9044405 ####[facility] [address] [place] [address] WBC corrected for nucl RBC Auto (Bld) [#/Vol] 9.6 E9/L Normal 4.0-11.0 [facility] Comment on above: Performed By: #### 2 587057, 11226577, 6982819, 8878350, 4213190 ####[facility] [address] [place] [address] Capillary Glucose POCon 01-10 Glucose [Mass/Vol] 167 mg/dL High 55-99 [facility] Comment on above: Result Comment: Mary flores RN/ Performed By: #### 2 16409967 ####[facility] [address] [place] [address] Glucose [Mass/Vol] 161 mg/dL High -99 [facility] Comment on above: Result Comment: Mary COLLAZO Performed By: #### 2 23843694 ####[facility] [address] [place] [address] Consent for Procedure/Surger yon 02-06-2023 Consent for Procedure/Surgery [id number] Normal [facility] Consultation Noteon 02-07-20 Consultation Note Normal [facility] Comment on above: Result Comment: Elec tronically Signed By: Santos Epperson DPM\.br\Date and Time Signed: 02/06/23 11:56 EDT Consultation Note Normal [facility] Comment on above: Result Comment: Elec tronically Signed By: Santos Epperson DPM\.br\Date and Time Signed: 02/06/23 09:48 EDT Consultation Note Normal [facility] Comment on above: Result Comment: Elec tronically Signed By: Ronaldo Arcos M.D\neno\Date and Time Signed: 02/06/23 09:35 EDT Interdisciplinary Note - Virgil e Manageron 02-06-2023 Interdisciplinary Note - Economist Research Assistant Normal [facility] Comment on above: Result Comment: Elec tronically Signed By: Franci Peace\.br\Date and Time Signed: 02/06/23 15:22 EDT Lactic Acidon 02-06-2023 Lactate [Mass/Vol] 1.1 mmol/L Normal 0.5-2.2 [facility] Comment on above: Order Comment: The s pecimen for this test has been found unacceptable due to hemolysis as determined by SW.Maria G, Micheline and Berna were contacted and the following determination was made to redraw the patient. Performed By: #### 2 097872, 30978472, 1833397, 5287252, 4142908 ####[facility] [address] [place] [address] Main OR PACU I Recordon 01-10 Main OR PACU I Record Normal [facility] Progress Note-Physicianon Progress Note-Physician Normal [facility] Comment on above: Result Comment: Elec tronically Signed By: Irineo Gonzalez Jr., DO\.br\Date and Time Signed: 02/06/23 12:03 EDT Progress Note-Physician Normal [facility] Comment on above: Result Comment: Elec tronically Signed By: Irineo Gonzalez Jr., DO\.br\Date and Time Signed: 02/06/23 09:44 EDT Progress Note-Physician Normal [facility] Comment on above: Result Comment: Elec tronically Signed By: Mimi COLIN MD\.br\Date and Time Signed: 02/06/23 09:38 EDT eGFRon 02-06-2023 GFR/1.73 sq M.predicted among non-blacks MDRD (S/P/Bld) [Vol rate/Area] 33 mL/min/1.73 m2 Low >=59 [facility] Comment on above: Order Comment: Order added by Discern Expert. Result Comment: Product Analyst claus kidney disease could be indicated at eGFR's of less than 60 mL/min/1.73m2. Kidney failure is indicated at less than 15 mL/min/1.73m2. Performed By: #### 2 718933, 32393619, 5591392, 3772365, 2778107 ####[facility] [address] [place] [address] Auto Diffon 02-05-2023 Basophils/100 WBC (Bld) 0.2 % Normal 0.0-2.0 [facility] Comment on above: Order Comment: Order Added by Discern Expert. Performed By: #### 2 695101, 9511500, 7663491, 84817026, 03777066, 25880902, 7816175 ####[address] [place] [address] Basophils/Leukocytes Auto (Bld) [Pure # fraction] 0.0 E9/L Normal 0.0-0.2 [facility] Comment on above: Order Comment: Order Added by Discern Expert. Performed By: #### 2 777795, 7347371, 2438431, 00491505, 44714011, 90932610, 9220819 ####[address] [place] [address] Eosinophils/100 WBC (Bld) 0.1 % Normal 0.0-8.0 [facility] Comment on above: Order Comment: Order Added by Discern Expert. Performed By: #### 2 380073, 2351782, 6221992, 38806079, 86310894, 18074919, 1693165 ####[facility] [address] [place] [address] Eosinophils/Leukocyte s Auto (Bld) [Pure # fraction] 0.0 E9/L Normal 0.0-0.5 [facility] Comment on above: Order Comment: Order Added by Discern Expert. Performed By: #### 2 248201, 7177662, 3181820, 74329105, 75982213, 29216228, 3629036 ####[address] [place] [address] Lymphocytes/100 WBC (Bld) 3.7 % Low 14.0-50.0 [facility] Comment on above: Order Comment: Order Added by Discern Expert. Performed By: #### 2 931472, 1169888, 9030944, 21002685, 84001433, 56480366, 3103750 ####[facility] [address] [place] [address] Lymphocytes/Leukocyte s Auto (Bld) [Pure # fraction] 0.5 E9/L Low 1.0-4.0 [facility] Comment on above: Order Comment: Order Added by Discern Expert. Performed By: #### 2 036965, 6849340, 4185075, 67021235, 20552796, 45452459, 5105362 ####[facility] [address] [place] [address] Monocytes/100 WBC (Bld) 8.2 % Normal 4.0-14.0 [facility] Comment on above: Order Comment: Order Added by Discern Expert. Performed By: #### 2 204345, 0508203, 5933357, 56822297, 78167729, 22029193, 5097765 ####[address] [place] [address] Monocytes/Leukocytes Auto (Bld) [Pure # fraction] 1.2 E9/L High 0.2-1.0 [facility] Comment on above: Order Comment: Order Added by Frankie Expert. Performed By: #### 2 551871, 0163400, 7010275, 08765654, 59164585, 31696265, 0310526 ####[facility] [address] [place] [address] Neutrophils/100 WBC (Bld) 87.8 % High 36.0-75.0 [facility] Comment on above: Order Comment: Order Added by Frankie Expert. Performed By: #### 2 883370, 8880458, 3630580, 36397119, 72011988, 82018009, 6596775 ####[facility] [address] [place] [address] Neutrophils/Leukocyte s Auto (Bld) [Pure # fraction] 13.2 E9/L High 2.0-7.5 [facility] Comment on above: Order Comment: Order Added by Discern Expert. Performed By: #### 2 675412, 1879648, 4919078, 56128250, 39557326, 42574369, 3530703 ####[facility] [address] [place] [address] BMPon 02-05-2023 Creatinine [Mass/Vol] 3.1 mg/dL High 0.5-1.3 [facility] Comment on above: Performed By: #### 2 034246, 5401880, 7536734, 09954047, 66443413, 71639901, 6421026 ####[facility] [address] [place] [address] Urea nitrogen [Mass/Vol] 63 mg/dL High 5-21 [facility] Comment on above: Performed By: #### 2 664445, 8297557, 2834595, 31026842, 54062041, 45173871, 2237754 ####[facility] [address] [place] [address] Urea nitrogen/Creatinine [Mass ratio] 20 No Units Normal 10-20 [facility] Comment on above: Performed By: #### 2 553397, 5535502, 6662477, 51431179, 06430894, 49767302, 8468956 ####[facility] [address] [place] [address] Anion gap [Moles/Vol] 21 mmol/L High 6-16 [facility] Comment on above: Performed By: #### 2 024881, 7529892, 5883776, 95865889, 67135556, 34236298, 3706840 ####[facility] [address] [place] [address] Calcium [Mass/Vol] 8.5 mg/dL Low 8.9-11.1 [facility] Comment on above: Performed By: #### 2 236911, 4276455, 5879167, 14982720, 32964326, 91366251, 1847102 ####[facility] [address] [place] [address] Chloride [Moles/Vol] 92 mmol/L Low 101-111 [facility] Comment on above: Performed By: #### 2 726525, 9253689, 7718975, 03291454, 22672018, 64176777, 6835365 ####[facility] [address] [place] [address] CO2 [Moles/Vol] 20 mmol/L Low 21-31 [facility] Comment on above: Performed By: #### 2 444892, 0337256, 8194689, 80654151, 36530496, 13101672, 7866770 ####[facility] [address] [place] [address] Glucose [Mass/Vol] 141 mg/dL Normal 55-199 [facility] Comment on above: Result Comment: If t his glucose result represents a fasting glucose, interpretation should refer to the following reference range: 55-99 mg/dL Performed By: #### 2 426052, 6740295, 4308448, 23363518, 43959847, 90283775, 0922005 ####[facility] [address] [place] [address] Potassium [Moles/Vol] 4.8 mmol/L Normal 3.5-5.3 [facility] Comment on above: Performed By: #### 2 821766, 0141108, 0366744, 08989392, 54645241, 12634684, 4783580 ####[facility] [address] [place] [address] Sodium [Moles/Vol] 128 mmol/L Low 135-145 [facility] Comment on above: Performed By: #### 2 513618, 6299226, 0134013, 93107310, 79279185, 73593939, 4502420 ####[facility] [address] [place] [address] BNPon 02-05-2023 Int Ctr BNP Pass Normal [facility] Comment on above: Performed By: #### 1 6203053 ####[facility] [address] [place] [address] Natriuretic peptide B (Bld) [Mass/Vol] 49 pg/mL Normal 5-80 [facility] Comment on above: Performed By: #### 1 6474330 ####[facility] [address] [place] [address] CBC w/ Auto Diffon 3 Erythrocyte distribution width (RBC) [Ratio] 16.9 % High 10.9-14.2 [facility] Comment on above: Performed By: #### 2 464219, 6327215, 6995631, 77229510, 19140443, 69669647, 2306487 ####[address] [place] [address] Hematocrit (Bld) [Volume fraction] 29.5 % Low 37.7-49.0 [facility] Comment on above: Performed By: #### 2 105723, 1751289, 4935101, 06044717, 22654670, 25554558, 1345089 ####[facility] [address] [place] [address] Hemoglobin (Bld) [Mass/Vol] 9.4 g/dL Low 13.5-17.5 [facility] Comment on above: Performed By: #### 2 367294, 5837373, 5955265, 37870087, 06531739, 47830069, 1696398 ####[facility] [address] [place] [address] MCH (RBC) [Entitic mass] 25.1 pg Low 27.0-34.0 [facility] Comment on above: Performed By: #### 2 693776, 6311107, 1534805, 05654630, 16119960, 34547810, 6743198 ####[facility] [address] [place] [address] MCHC (RBC) [Mass/Vol] 31.8 g/dL Normal 31.4-36.0 [facility] Comment on above: Performed By: #### 2 761260, 1891278, 2794426, 61647759, 78575353, 04214793, 6126306 ####[facility] [facility] [address] [place] [id number] MCV (RBC) [Entitic vol] 78.8 fL Low 80.0-100.0 [facility] Comment on above: Performed By: #### 2 516798, 7846440, 6831475, 78023875, 32587492, 82847673, 7168923 ####[facility] [address] [id number] Platelet mean volume (Bld) [Entitic vol] 10.0 fL Normal 6.4-10.8 [facility] Comment on above: Performed By: #### 2 689806, 9661675, 9658082, 53629971, 88678693, 69758969, 9828669 ####[facility] [address] [id number] Platelets (Bld) [#/Vol] 186.0 E9/L Normal 150.0-500.0 [facility] Comment on above: Performed By: #### 2 568735, 2381934, 4127499, 46486605, 53018423, 29858039, 2670985 ####[facility] [address] [place] [address] RBC (Bld) [#/Vol] 3.8 E12/L Low 4.3-5.9 [facility] Comment on above: Performed By: #### 2 188480, 1339082, 7513316, 09030702, 57272805, 40667851, 4917958 ####[facility] [address] [place] [address] WBC corrected for nucl RBC Auto (Bld) [#/Vol] 15.0 E9/L High 4.0-11.0 [facility] Comment on above: Performed By: #### 2 822469, 7343970, 4271585, 70015775, 92530082, 58186242, 7096561 ####[facility] [address] [place] [address] Capillary Glucose POCon 01-10 Glucose [Mass/Vol] 197 mg/dL High 55-99 [facility] Comment on above: Performed By: #### 2 53859102 ####[facility] [address] [place] [address] Glucose [Mass/Vol] 149 mg/dL High 55-99 [facility] Comment on above: Performed By: #### 2 37587259 ####[facility] [address] [place] [address] Consent for Treatmenton 01-10 Consent for Treatment [id number]#1.00CD:127 Normal [facility] ED Note-Physicianon 02-06-20 ED Note-Physician Normal [facility] Comment on above: Result Comment: Elec tronically Signed By: Everardo Puckett PA-C\.br\Date and Time Signed: 02/05/23 16:10 EDT\.br\Electronically Co-Signed By: Lucia Noyola M.D.\.br\Date and Time Co-Signed: 02/05/23 16:35 EDT Interlude Education Videoon Interlude Education Video Yes Patient Avoiding Infections in the Hospital Normal [facility] Lactic Acidon 02-05-2023 Lactate [Mass/Vol] 4.5 mmol/L High 0.5-2.2 [facility] Comment on above: Performed By: #### 2 355954, 7967737, 6139761, 58371234, 67710501, 97140067, 3986094 ####[facility] [address] [place] [address] MRI Foot w/o Contrast Righto n 02-05-2023 MRI Foot w/o Contrast Right Normal [facility] PT & PTTon 02-05-2023 aPTT Coag (PPP) [Time] 39.3 second(s) High 25.1-36.5 [facility] Comment on above: Result Comment: Para meter 15 days - 4 weeks 1 - 5 months 6 - 11 months 1 - 5 years 6 - 10 years 11 - 17 years PTT Mean: 35.4 (27.6-45.6) Mean: 33.5 (24.8-40.7) Mean: 32.4 (25.1-40.7) Mean: 31.6 (24.0-39.2) Mean: 31.6 (26.9-38.7) Mean: 31.0 (24.6-38.4) Pediatric Reference ranges were obtained from a study by johnny Ceja al. prepared from 1437 samples obtained at 7 different centers using the same coagulation reagent and instrumentation as [facility]. Currently there are no coagulation studies available worldwide for children to 14 days, and no normal ranges. Heparin therapeutic range (represented by Anti-Factor Xa activity of 0.2 - 0.4 U/mL) corresponds to PTT of 56.6 - 109.0 sec. Performed By: #### 2 276214, 4511531, 7682433, 51781546, 23988896, 18082504, 7269164 ####[facility] [address] [place] [address] INR Coag (PPP) [Relative time] 1.2 {INR} Invalid Interpretation Code [facility] Comment on above: Result Comment: INR results are specifically intended to assess patients stabilized on long-term Anticoagulation therapy suggested INR?s ?Less Intensive Anticoagulation? 2.0 ? 3.0Conventional Range 3.0 ? 4.5 Performed By: #### 2 327324, 7128463, 4417371, 48383913, 39498996, 28972677, 7168961 ####[facility] [address] [place] [address] PT Coag (PPP) [Time] 13.5 second(s) High 9.4-12.5 [facility] Comment on above: Result Comment: 15 [...] the same coagulation reagent and instrumentation as [facility]. Currently there are no coagulation studies available worldwide for children to 14 days, and no normal ranges. Performed By: #### 2 528507, 2513710, 9721263, 48147559, 63542072, 43058013, 5693644 ####[facility] [address] [place] [address] Physician Orderon 02-05-2023 Physician Order [id number]#1.00CD:127 Normal [facility] Progress Note - Pharmacyon 0 02-05-2023 Progress Note - Pharmacy Normal [facility] Progress Note-Physicianon Progress Note-Physician Normal [facility] Comment on above: Result Comment: Elec tronically Signed By: Stepan GILBERT, Raquel\.br\Date and Time Signed: 02/05/23 20:16 EDT RAD - MRI Screening Formon 0 02-05-2023 RAD - MRI Screening Form [id number]#1.00CD:127 Normal [facility] Troponin 0 Hr.on 02-05-2023 Troponin I.cardiac [Mass/Vol] 12.10 pg/mL Low 15.90-38.40 [facility] Comment on above: Result Comment: The 95% CI (Confidence Interval) PPV (Positive Predictive Value) for myocardial infarction in females is 38 pg/mL, in males 51 pg/mL. The results should be used in conjunction with clinical conditions of myocardial infarction.(Access High Sensitivity Troponin I Instructions For Use, Frank [place], December 2017) Performed By: #### 2 981596, 5588742, 1111220, 16629043, 40454175, 58727359, 2534081 ####[facility] [address] [place] [address] XR Chest Single Viewon 02-05 XR Chest Single View Normal [facility] eGFRon 02-05-2023 GFR/1.73 sq M.predicted among non-blacks MDRD (S/P/Bld) [Vol rate/Area] 22 mL/min/1.73 m2 Low >=59 [facility] Comment on above: Order Comment: Order added by Discern Expert. Result Comment: Product Analyst claus kidney disease could be indicated at eGFR's of less than 60 mL/min/1.73m2. Kidney failure is indicated at less than 15 mL/min/1.73m2. Performed By: #### 2 454424, 1488383, 8898789, 40828941, 71787216, 04174551, 4208557 ####[facility] [address] [place] [address] Nursing Assessment - Woundon 02-04-2023 Nursing Assessment - Wound [id number]#1.00CD:127 Normal [facility] Nursing Note - Woundon 02-04 Nursing Note - Wound [id number]#1.00CD:127 Normal [facility] ED Note-Physicianon 02-03-20 ED Note-Physician Normal [facility] Comment on above: Result Comment: Elec tronically Signed By: Omar Murphy MD\.br\Date and Time Signed: 02/02/23 02:20 EDT\.br\Electronically Co-Signed By: Jabier Martin PA-C\.br\Date and Time Co-Signed: 01/10/23 15:59 EDT C Blood Charcoalon 3 Blood Culture Charcoal Normal [facility] Comment on above: Performed By: #### 1 1930607 ####[facility] [address] [place] [address] Discharge Instructionson Discharge Instructions [id number]#1.00CD:127 Normal [facility] General Message Officeon General Message Office [facility] CHEMISTRYOrdered By: Lab ROP User on 01-15-2023 Glucose [Mass/Vol] 148 mg/dL High 55 - 99 mg/dL [facility] POC Subsection Comment on above: Result Comment: Mary COLLAZO POC Device SN [id number] Invalid Interpretation Code [facility] POC Subsection POC User ID [id number] Invalid Interpretation Code [facility] POC Subsection POC Username EMERITA FAM Invalid Interpretation Code [facility] POC Subsection Capillary Glucose POCon Glucose [Mass/Vol] 148 mg/dL High 55-99 [facility] Comment on above: Result Comment: Mary COLLAZO Performed By: #### 2 [id number] ####[facility] [address] [place] [address] Coding Queryon 01-15-2023 Coding Query Normal [facility] Discharge Note-Nursingon Discharge Note-Nursing [facility] Inpatient Clinical Summaryon 01-15-2023 Inpatient Clinical Summary Normal [facility] Inpatient Patient Summaryon 01-15-2023 Inpatient Patient Summary [facility] Interdisciplinary Note - Virgil e Manageron 01-15-2023 Interdisciplinary Note - Economist Research Assistant [facility] Comment on above: Result Comment: Elec [...] regarding the refusal of fall risk. Normal [facility] Monitor Recordon 01-15-2023 Monitor Record [id number]#1.00CD:127 Normal [facility] Monitor Record [id number]#1.00CD:127 Normal [facility] Progress Note-Nurseon 2022 Progress Note-Nurse Patient educated on risks of fall and precautions, patient refusing bed alarm and fall precautions. Charge nurse Fernando lopez Normal [facility] C Woundon 01-14-2023 Wound Culture Normal [facility] Comment on above: Performed By: #### 2 889347 ####[facility] [address] [place] [address] CHEMISTRYOrdered By: Lab ROP User on 01-14-2023 Glucose [Mass/Vol] 174 mg/dL High 55 - 99 mg/dL [facility] POC Subsection Comment on above: Result Comment: Mary COLLAZO POC Device SN [id number] Invalid Interpretation Code [facility] POC Subsection POC User ID [id number] Invalid Interpretation Code [facility] POC Subsection POC Username MAGAN THOMASON Invalid Interpretation Code [facility] POC Subsection Glucose [Mass/Vol] 150 mg/dL High 55 - 99 mg/dL [facility] POC Subsection Comment on above: Result Comment: Mary COLLAZO POC Device SN [id number] Invalid Interpretation Code [facility] POC Subsection POC User ID [id number] Invalid Interpretation Code [facility] POC Subsection POC Username NEFTALY NEAL Invalid Interpretation Code [facility] POC Subsection CHEMISTRYOrdered By: SYSTEM SYSTEM on 01-14-2023 Vancomycin trough [Moles/Vol] 17 microgram/mL Normal 10 - 20 mcg/mL [facility] Remisol Capillary Glucose POCon Glucose [Mass/Vol] 174 mg/dL High 55-99 [facility] Comment on above: Result Comment: Mary COLLAZO Performed By: #### 2 [id number] ####[facility] [address] [place] [address] Glucose [Mass/Vol] 150 mg/dL High 55-99 [facility] Comment on above: Result Comment: Mary COLLAZO Performed By: #### 2 53589492 ####[facility] [address] [place] [address] Glucose [Mass/Vol] 161 mg/dL High 55-99 [facility] Comment on above: Result Comment: Mary COLLAZO Performed By: #### 2 24496887 ####[facility] [address] [place] [address] Glucose [Mass/Vol] 183 mg/dL High 55-99 [facility] Comment on above: Result Comment: Mary COLLAZO Performed By: #### 2 73667050 ####[facility] [address] [place] [address] Interdisciplinary Note - Virgil e Manageron 01-14-2023 Interdisciplinary Note - Economist Research Assistant [facility] Comment on above: Result Comment: Elec tronically Signed By: Teagan Lundy RN\.br\Date and Time Signed: 01/14/23 09:37 EDT Interdisciplinary Note - Economist Research Assistant [facility] Comment on above: Result Comment: Elec tronically Signed By: Teagan Lundy RN\.br\Date and Time Signed: 01/14/23 09:33 EDT Other Comment: wrong chart Monitor Recordon 01-14-2023 Monitor Record [id number]#1.00CD:127 Normal [facility] Monitor Record [id number]#1.00CD:127 Normal [facility] Monitor Record [id number]#1.00CD:127 [facility] Monitor Record [id number]#1.00CD:127 Normal [facility] Progress Note - Pharmacyon 0 01-14-2023 Progress Note - Pharmacy Normal [facility] Progress Note-Physicianon Progress Note-Physician [facility] Comment on above: Result Comment: Elec tronically Signed By: Javon Edwards DO.br\Date and Time Signed: 01/14/23 14:53 EDT Vanco Troughon 01-14-2023 VANCOMYCIN 17 microgram/mL Normal 10-20 [facility] Comment on above: Performed By: #### 2 291213 ####[facility] [address] [place] [address] BMPon 01-13-2023 Anion gap [Moles/Vol] 9 mmol/L Normal 6-16 [facility] Comment on above: Performed By: #### 2 144011, 77887651 ####[facility] [address] [place] [address] Calcium [Mass/Vol] 8.6 mg/dL Low 8.9-11.1 [facility] Comment on above: Performed By: #### 2 485179, 34665961 ####[facility] [address] [place] [address] Chloride [Moles/Vol] 107 mmol/L Normal 101-111 [facility] Comment on above: Performed By: #### 2 103969, 75845294 ####[facility] [address] [place] [address] CO2 [Moles/Vol] 28 mmol/L Normal 21-31 [facility] Comment on above: Performed By: #### 2 336939, 12803496 ####[facility] [address] [place] [address] Creatinine [Mass/Vol] 1.1 mg/dL Normal 0.5-1.3 [facility] Comment on above: Performed By: #### 2 037131, 39887655 ####[facility] [address] [place] [address] Glucose [Mass/Vol] 165 mg/dL Normal 55-199 [facility] Comment on above: Result Comment: If t his glucose result represents a fasting glucose, interpretation should refer to the following reference range: 55-99 mg/dL Performed By: #### 2 918642, 34645151 ####[facility] [address] [place] [address] Potassium [Moles/Vol] 3.3 mmol/L Low 3.5-5.3 [facility] Comment on above: Performed By: #### 2 417456, 86396794 ####[facility] [address] [place] [address] Sodium [Moles/Vol] 141 mmol/L Normal 135-145 [facility] Comment on above: Performed By: #### 2 643758, 73566564 ####[facility] [address] [place] [address] Urea nitrogen [Mass/Vol] 25 mg/dL High 5-21 [facility] Comment on above: Performed By: #### 2 750670, 32136576 ####[facility] [address] [place] [address] Urea nitrogen/Creatinine [Mass ratio] 23 No Units High 10-20 [facility] Comment on above: Performed By: #### 2 709531, 09642498 ####[facility] [address] [place] [address] CHEMISTRYOrdered By: SYSTEM SYSTEM on 01-13-2023 Anion gap [Moles/Vol] 9 mmol/L Normal 6 - 16 mEq/L [facility] Remisol Calcium [Mass/Vol] 8.6 mg/dL Low 8.9 - 11. 1 mg/dL [facility] Remisol Chloride [Moles/Vol] 107 mmol/L Normal 101 - 1 11 mmol/L [facility] Remisol CO2 [Moles/Vol] 28 mmol/L Normal 21 - 31 mmol/L [facility] Remisol Creatinine [Mass/Vol] 1.1 mg/dL Normal 0.5 - 1.3 mg/dL [facility] Remisol GFR/1.73 sq M.predicted among non-blacks MDRD (S/P/Bld) [Vol rate/Area] 76 mL/min/1.73 m2 Normal >=59mL/min/1 .73 m2 [facility] Chem S Glucose [Mass/Vol] 165 mg/dL Normal 55 - 199 mg/dL [facility] Remisol Potassium [Moles/Vol] 3.3 mmol/L Low 3.5 - 5.3 mmol/L [facility] Remisol Sodium [Moles/Vol] 141 mmol/L Normal 135 - 145 mmol/L [facility] Remisol Urea nitrogen [Mass/Vol] 25 mg/dL High 5 - 21 mg/dL [facility] Remisol Urea nitrogen/Creatinine [Mass ratio] 23 mg/mg High 10 - 20 [facility] Remisol Capillary Glucose POCon Glucose [Mass/Vol] 167 mg/dL High 55-99 [facility] Comment on above: Result Comment: Mary flores RN/ Performed By: #### 2 [id number] ####[facility] [address] [place] [address] Glucose [Mass/Vol] 169 mg/dL High 55-99 [facility] Comment on above: Result Comment: Mary flores RN/ Performed By: #### 2 33640498 ####[facility] [address] [place] [address] Glucose [Mass/Vol] 240 mg/dL High 55-99 [facility] Comment on above: Result Comment: Mary flores RN/ Performed By: #### 2 [id number] ####[facility] [address] [place] [address] Glucose [Mass/Vol] 140 mg/dL High 55-99 [facility] Comment on above: Result Comment: Mary flores RN/ANGELESleaned Meter Performed By: #### 2 36071965 ####[facility] [address] [place] [address] Consultation Noteon 01-14-20 Consultation Note Normal [facility] Comment on above: Result Comment: Elec tronically Signed By: Ronaldo Arcos M.D\.br\Date and Time Signed: 01/13/23 14:03 EDT Consultation Note Normal [facility] Comment on above: Result Comment: Elec tronically Signed By: Santos Epperson DPM\.br\Date and Time Signed: 01/13/23 09:01 EDT Interdisciplinary Note - Virgil e Manageron 01-13-2023 Interdisciplinary Note - Economist Research Assistant Normal [facility] Comment on above: Result Comment: Elec tronically Signed By: Valentina Peoples\Tiobr\Date and Time Signed: 01/13/23 15:02 EDT Message from Medicareon Message from Medicare [id number]#1.00CD:127 Normal [facility] Monitor Recordon 01-13-2023 Monitor Record [id number]#1.00CD:127 Normal [facility] Monitor Record [id number]#1.00CD:127 Normal [facility] Progress Note-Physicianon Progress Note-Physician Normal [facility] Comment on above: Result Comment: Elec tronically Signed By: Javon Edwards DObr\Date and Time Signed: 01/13/23 13:58 EDT eGFRon 01-13-2023 GFR/1.73 sq M.predicted among non-blacks MDRD (S/P/Bld) [Vol rate/Area] 76 mL/min/1.73 m2 Normal >=59 [facility] Comment on above: Order Comment: Order added by Discern Expert. Result Comment: Product Analyst claus kidney disease could be indicated at eGFR's of less than 60 mL/min/1.73m2. Kidney failure is indicated at less than 15 mL/min/1.73m2. Performed By: #### 2 284539, [id number] ####[facility] [address] [place] [address] CHEMISTRYOrdered By: SYSTEM SYSTEM on 01-12-2023 Vancomycin trough [Moles/Vol] 16 microgram/mL Normal 10 - 20 mcg/mL [facility] Remisol Vancomycin peak [Moles/Vol] 27 microgram/mL Normal 20 - 40 mcg/mL [facility] Remisol Capillary Glucose POCon Glucose [Mass/Vol] 164 mg/dL High 55-99 [facility] Comment on above: Result Comment: Mary COLLAZO Performed By: #### 2 93770583 ####[facility] [address] [place] [address] Glucose [Mass/Vol] 192 mg/dL High 55-99 [facility] Comment on above: Result Comment: Mary COLLAZO Performed By: #### 2 37450377 ####[facility] [address] [place] [address] Glucose [Mass/Vol] 177 mg/dL High 55-99 [facility] Comment on above: Result Comment: Mary COLLAZO Performed By: #### 2 97517295 ####[facility] [address] [place] [address] Glucose [Mass/Vol] 178 mg/dL High 55-99 [facility] Comment on above: Result Comment: Mary COLLAZO Performed By: #### 2 74085568 ####[facility] [address] [place] [address] MadK4kic 01-12-2023 HbA1c (Bld) [Mass fraction] 7.7 % High <=5.9 [facility] Comment on above: Performed By: #### 7 48080447, 96725450, 6471084, 4486589, 3800710 ####[facility] [address] [place] [address] Monitor Recordon 01-12-2023 Monitor Record [id number]#1.00CD:127 Normal [facility] Monitor Record [id number]#[id number]:127 Normal [facility] Progress Note - Pharmacyon 0 01-12-2023 Progress Note - Pharmacy Normal [facility] Progress Note-Physicianon Progress Note-Physician Normal [facility] Comment on above: Result Comment: Elec tronically Signed By: Javon Edwards DO.br\Date and Time Signed: 01/12/23 13:16 EDT Vanco Peakon 01-12-2023 VANCOMYCIN 27 microgram/mL Normal 20-40 [facility] Comment on above: Order Comment: Joshua crowley drawn Vancomycin Peak 1 hour after the completion of the 2100 dose on 01/11/23. Thank you.vanco was just disconnected @ 2300. will draw @ 0000. [email or web address] 01/11/2023 23:17:42 EDT Performed By: #### 2 426289 ####[facility] [address] [place] [address] Vanco Troughon 01-12-2023 VANCOMYCIN 16 microgram/mL Normal 10-20 [facility] Comment on above: Order Comment: NOTE: Trough is scheduled 1 hour prior to next dose. Thank you. Performed By: #### 2 796361 ####[facility] [address] [place] [address] Auto Diffon 01-11-2023 Basophils/100 WBC (Bld) 0.8 % Normal 0.0-2.0 [facility] Comment on above: Order Comment: Order Added by Discern Expert. Performed By: #### 7 [id number], 89754693, 6053851, 2495233, 7657231 ####[address] [place] [address] Basophils/Leukocytes Auto (Bld) [Pure # fraction] 0.0 E9/L Normal 0.0-0.2 [facility] Comment on above: Order Comment: Order Added by Discern Expert. Performed By: #### 7 90565137, 75327677, 4683323, 4084817, 4321467 ####[facility] [address] [place] [address] Eosinophils/100 WBC (Bld) 1.7 % Normal 0.0-8.0 [facility] Comment on above: Order Comment: Order Added by Discern Expert. Performed By: #### 7 10936832, 57374326, 4044719, 8394690, 3840251 ####[facility] [address] [place] [address] Eosinophils/Leukocyte s Auto (Bld) [Pure # fraction] 0.1 E9/L Normal 0.0-0.5 [facility] Comment on above: Order Comment: Order Added by Discern Expert. Performed By: #### 7 42149010, 43375568, 7295374, 8650579, 2124016 ####[address] [place] [address] Lymphocytes/100 WBC (Bld) 25.1 % Normal 14.0-50.0 [facility] Comment on above: Order Comment: Order Added by Discern Expert. Performed By: #### 7 63106554, 50392745, 2713624, 8532230, 1614509 ####[facility] [address] [place] [address] Lymphocytes/Leukocyte s Auto (Bld) [Pure # fraction] 1.5 E9/L Normal 1.0-4.0 [facility] Comment on above: Order Comment: Order Added by Frankie Expert. Performed By: #### 7 21594458, 21107333, 2139208, 3035438, 2398133 ####[address] [address] Monocytes/100 WBC (Bld) 9.2 % Normal 4.0-14.0 [facility] Comment on above: Order Comment: Order Added by Frankie Expert. Performed By: #### 7 95790686, 69391584, 4324654, 3163927, 2582676 ####[address] [address] Monocytes/Leukocytes Auto (Bld) [Pure # fraction] 0.5 E9/L Normal 0.2-1.0 [facility] Comment on above: Order Comment: Order Added by Frankie Expert. Performed By: #### 7 18810160, 51271632, 6292388, 4435058, 0384688 ####[address] [place] [address] Neutrophils/100 WBC (Bld) 63.2 % Normal 36.0-75.0 [facility] Comment on above: Order Comment: Order Added by Frankie Expert. Performed By: #### 7 18747368, 41761486, 7033973, 4000501, 0842663 ####[address] [place] [address] Neutrophils/Leukocyte s Auto (Bld) [Pure # fraction] 3.7 E9/L Normal 2.0-7.5 [facility] Comment on above: Order Comment: Order Added by Discern Expert. Performed By: #### 7 02130731, 17029217, 6247510, 7744525, 9508366 ####[facility] [address] [place] [address] BMPon 01-11-2023 Anion gap [Moles/Vol] 11 mmol/L Normal 6-16 [facility] Comment on above: Performed By: #### 7 06334894, 76459897, 0527380, 4138159, 3629781 ####[facility] [address] [place] [address] Calcium [Mass/Vol] 8.8 mg/dL Low 8.9-11.1 [facility] Comment on above: Performed By: #### 7 80955645, 02415505, 5212008, 5884069, 6078633 ####[facility] [address] [place] [address] Chloride [Moles/Vol] 106 mmol/L Normal 101-111 [facility] Comment on above: Performed By: #### 7 67837756, 05494761, 1513485, 1260928, 4958233 ####[facility] [facility] [address] [place] [address] CO2 [Moles/Vol] 29 mmol/L Normal 21-31 [facility] Comment on above: Performed By: #### 7 [id number], 78192501, 6434370, 9804121, 8628786 ####[facility] [address] [place] [address] Creatinine [Mass/Vol] 1.0 mg/dL Normal 0.5-1.3 [facility] Comment on above: Performed By: #### 7 57567489, 35994994, 2581360, 1541259, 3309085 ####[facility] [address] [place] [address] Glucose [Mass/Vol] 158 mg/dL Normal 55-199 [facility] Comment on above: Result Comment: If t his glucose result represents a fasting glucose, interpretation should refer to the following reference range: 55-99 mg/dL Performed By: #### 7 58304084, 57059116, 9571315, 7832728, 8084019 ####[facility] [address] [place] [address] Potassium [Moles/Vol] 3.7 mmol/L Normal 3.5-5.3 [facility] Comment on above: Performed By: #### 7 26242477, 95903411, 2266435, 7020840, 1628213 ####[facility] [address] [place] [address] Sodium [Moles/Vol] 142 mmol/L Normal 135-145 [facility] Comment on above: Performed By: #### 7 02223938, 34819439, 0120174, 8004580, 3498730 ####[facility] [address] [place] [address] Urea nitrogen [Mass/Vol] 23 mg/dL High 5-21 [facility] Comment on above: Performed By: #### 7 01345193, 05766103, 9844298, 0142078, 5551054 ####[facility] [address] [place] [address] Urea nitrogen/Creatinine [Mass ratio] 23 No Units High 10-20 [facility] Comment on above: Performed By: #### 7 00766177, 02334028, 4213811, 8338581, 1959519 ####[facility] [address] [place] [address] CBC w/ Auto Diffon 3 Erythrocyte distribution width (RBC) [Ratio] 16.7 % High 10.9-14.2 [facility] Comment on above: Performed By: #### 7 49251500, 21629664, 7809983, 7632393, 8477963 ####[facility] [address] [place] [address] Hematocrit (Bld) [Volume fraction] 31.4 % Low 37.7-49.0 [facility] Comment on above: Performed By: #### 7 66914501, 06268587, 8163988, 2559495, 0647905 ####[facility] [address] [place] [address] Hemoglobin (Bld) [Mass/Vol] 10.1 g/dL Low 13.5-17.5 [facility] Comment on above: Performed By: #### 7 40938590, 60197385, 9998616, 7115057, 7285812 ####[address] [address] MCH (RBC) [Entitic mass] 25.5 pg Low 27.0-34.0 [facility] Comment on above: Performed By: #### 7 37132334, 23112435, 6999484, 5560052, 1890252 ####[address] [address] MCHC (RBC) [Mass/Vol] 32.2 g/dL Normal 31.4-36.0 [facility] Comment on above: Performed By: #### 7 11625533, 94405463, 5149214, 4855754, 6834893 ####[address] [address] MCV (RBC) [Entitic vol] 79.3 fL Low 80.0-100.0 [facility] Comment on above: Performed By: #### 7 35703257, 45662927, 8197003, 5917575, 6368482 ####[address] [address] Platelet mean volume (Bld) [Entitic vol] 8.5 fL Normal 6.4-10.8 [facility] Comment on above: Performed By: #### 7 56331501, 61451718, 7282144, 5450522, 1216812 ####[address] [place] [address] Platelets (Bld) [#/Vol] 286.0 E9/L Normal 150.0-500.0 [facility] Comment on above: Performed By: #### 7 27332856, 44000511, 0257553, 0958011, 5126176 ####[facility] [address] [place] [address] RBC (Bld) [#/Vol] 4.0 E12/L Low 4.3-5.9 [facility] Comment on above: Performed By: #### 7 54087398, 04353032, 0032904, 7178725, 7624004 ####[facility] [address] [place] [address] WBC corrected for nucl RBC Auto (Bld) [#/Vol] 5.8 E9/L Normal 4.0-11.0 [facility] Comment on above: Performed By: #### 7 74306038, 71764523, 2708753, 8831864, 3398362 ####[facility] [address] [place] [address] CHEMISTRYOrdered By: SYSTEM SYSTEM on 01-11-2023 Anion gap [Moles/Vol] 11 mmol/L Normal 6 - 16 mEq/L [facility] Remisol Calcium [Mass/Vol] 8.8 mg/dL Low 8.9 - 11. 1 mg/dL [facility] Remisol Chloride [Moles/Vol] 106 mmol/L Normal 101 - 1 11 mmol/L [facility] CO2 [Moles/Vol] 29 mmol/L Normal 21 - 31 mmol/L [facility] Creatinine [Mass/Vol] 1.0 mg/dL Normal 0.5 - 1.3 mg/dL [facility] Remisol GFR/1.73 sq M.predicted among non-blacks MDRD (S/P/Bld) [Vol rate/Area] 86 mL/min/1.73 m2 Normal >=59mL/min/1 .73 m2 [facility] Chem S Glucose [Mass/Vol] 158 mg/dL Normal 55 - 199 mg/dL [facility] Potassium [Moles/Vol] 3.7 mmol/L Normal 3.5 - 5.3 mmol/L [facility] Sodium [Moles/Vol] 142 mmol/L Normal 135 - 145 mmol/L [facility] Remisol Urea nitrogen [Mass/Vol] 23 mg/dL High 5 - 21 mg/dL [facility] Remisol Urea nitrogen/Creatinine [Mass ratio] 23 mg/mg High 10 - 20 [facility] Remisol CHEMISTRYOrdered By: Makenna Portillo on 01-11-2023 HbA1c (Bld) [Mass fraction] 7.7 % High <=5.9% [facility] ChemAutoSS Capillary Glucose POCon Glucose [Mass/Vol] 261 mg/dL High 55-99 [facility] Comment on above: Result Comment: Mary flores RN/ Performed By: #### 2 [id number] ####[facility] [address] [place] [address] Glucose [Mass/Vol] 222 mg/dL High 55-99 [facility] Comment on above: Result Comment: Mary flores RN/ Performed By: #### 2 08554049 ####[facility] [address] [place] [address] Glucose [Mass/Vol] 149 mg/dL High 55-99 [facility] Comment on above: Result Comment: Mary COLLAZO Performed By: #### 2 [id number] ####[facility] [address] [place] [address] HEMATOLOGYOrdered By: SYSTEM SYSTEM on 01-11-2023 Basophils/100 WBC (Bld) 0.8 % Normal 0.0 - 2.0 % [facility] HemeAutoSS Basophils/Leukocytes Auto (Bld) [Pure # fraction] 0.0 E9/L Normal 0.0 - 0.2 E9/L [facility] HemeAutoSS Eosinophils/100 WBC (Bld) 1.7 % Normal 0.0 - 8.0 % [facility] HemeAutoSS Eosinophils/Leukocyte s Auto (Bld) [Pure # fraction] 0.1 E9/L Normal 0.0 - 0.5 E9/L [facility] HemeAutoSS Lymphocytes/100 WBC (Bld) 25.1 % Normal 14.0 - 50.0 % [facility] HemeAutoSS Lymphocytes/Leukocyte s Auto (Bld) [Pure # [...] 79.3 fL Low 80.0 - 100.0 fL [facility] HemeAutoSS Platelet mean volume (Bld) [Entitic vol] 8.5 fL Normal 6.4 - 10.8 fL [facility] HemeAutoSS Platelets (Bld) [#/Vol] 286.0 E9/L Normal 150.0 - 500.0 E9/L [facility] HemeAutoSS RBC (Bld) [#/Vol] 4.0 E12/L Low 4.3 - 5.9 E12/L [facility] HemeAutoSS WBC corrected for nucl RBC Auto (Bld) [#/Vol] 5.8 E9/L Normal 4.0 - 11.0 E9/L [facility] HemeAutoSS Interdisciplinary Note - Virgil e Manageron 01-11-2023 Interdisciplinary Note - Economist Research Assistant Normal [facility] Comment on above: Result Comment: Elec tronically Signed By: Kamron RN, Teagan\.br\Date and Time Signed: 01/11/23 12:17 EDT MRI Foot w/o Contrast Righto n 01-11-2023 MRI Foot w/o Contrast Right Normal [facility] Monitor Recordon 01-11-2023 Monitor Record [id number]:127 Normal [facility] Monitor Record [id number]:127 Normal [facility] No Panel InformationOrdered By: Margret Ambriz on 01-11-2023 GS Occasional White Blo od Cells Occasional Gram Positive Cocci Occasional Gram Positive Rods [facility] Wound Culture 2+ Gram Positive Lavell s resembling diphtheroids [facility] Progress Note - Pharmacyon 0 01-11-2023 Progress Note - Pharmacy Normal [facility] Progress Note-Physicianon Progress Note-Physician Normal [facility] Comment on above: Result Comment: Elec tronically Signed By: VAMSI GILBERT, Mimi\.br\Date and Time Signed: 01/11/23 08:58 EDT RAD - MRI Screening Formon 0 01-11-2023 RAD - MRI Screening Form [id number]:127 Normal [facility] eGFRon 01-11-2023 GFR/1.73 sq M.predicted among non-blacks MDRD (S/P/Bld) [Vol rate/Area] 86 mL/min/1.73 m2 Normal >=59 [facility] Comment on above: Order Comment: Order added by Discern Expert. Result Comment: Product Analyst claus kidney disease could be indicated at eGFR's of less than 60 mL/min/1.73m2. Kidney failure is indicated at less than 15 mL/min/1.73m2. Performed By: #### 7 [id number], 53624032, 3853055, 3339118, 0904786 ####[facility] [address] [place] [address] Auto Diffon 01-10-2023 Basophils/100 WBC (Bld) 0.7 % Normal 0.0-2.0 [facility] Comment on above: Order Comment: Order Added by Discern Expert. Performed By: #### 2 966363, 82871124, 4263002, 9536897, 29254687, 7146482, 6852294 ####[facility] [address] [place] [address] Basophils/Leukocytes Auto (Bld) [Pure # fraction] 0.0 E9/L Normal 0.0-0.2 [facility] Comment on above: Order Comment: Order Added by Discern Expert. Performed By: #### 2 313409, 35014321, 2307483, 9009749, 79141411, 2621807, 3215544 ####[address] [place] [address] Eosinophils/100 WBC (Bld) 1.3 % Normal 0.0-8.0 [facility] Comment on above: Order Comment: Order Added by Discern Expert. Performed By: #### 2 977707, 62282714, 0010868, 6822281, 17561002, 2906258, 4962207 ####[address] [place] [address] Eosinophils/Leukocyte s Auto (Bld) [Pure # fraction] 0.1 E9/L Normal 0.0-0.5 [facility] Comment on above: Order Comment: Order Added by Discern Expert. Performed By: #### 2 891100, 98499923, 8225917, 9453748, 38911218, 0629276, 4273293 ####[address] [place] [address] Lymphocytes/100 WBC (Bld) 22.5 % Normal 14.0-50.0 [facility] Comment on above: Order Comment: Order Added by Discern Expert. Performed By: #### 2 650813, 41348470, 4457949, 9054020, 18338142, 6663023, 5474270 ####[address] [place] [address] Lymphocytes/Leukocyte s Auto (Bld) [Pure # fraction] 1.5 E9/L Normal 1.0-4.0 [facility] Comment on above: Order Comment: Order Added by Discern Expert. Performed By: #### 2 030356, 72564088, 2633170, 5162554, 19978331, 6779241, 6042558 ####[facility] [address] [place] [address] Monocytes/100 WBC (Bld) 8.5 % Normal 4.0-14.0 [facility] Comment on above: Order Comment: Order Added by Discern Expert. Performed By: #### 2 310411, 70378038, 3219722, 3207511, 67830061, 5343184, 9825212 ####[address] [place] [address] Monocytes/Leukocytes Auto (Bld) [Pure # fraction] 0.6 E9/L Normal 0.2-1.0 [facility] Comment on above: Order Comment: Order Added by Discern Expert. Performed By: #### 2 920741, 47220977, 8475333, 0700256, 97103246, 7497559, 2439908 ####[address] [address] Neutrophils/100 WBC (Bld) 67.0 % Normal 36.0-75.0 [facility] Comment on above: Order Comment: Order Added by Frankie Expert. Performed By: #### 2 219861, 86145933, 8256854, 8492988, 44614237, 8555017, 4971921 ####[facility] [address] [place] [address] Neutrophils/Leukocyte s Auto (Bld) [Pure # fraction] 4.5 E9/L Normal 2.0-7.5 [facility] Comment on above: Order Comment: Order Added by Frankie Expert. Performed By: #### 2 955670, 78877932, 1585540, 0991858, 01279665, 5037436, 5902899 ####[address] [address] BNPon 01-10-2023 Natriuretic peptide B (Bld) [Mass/Vol] 52 pg/mL Normal 5-80 [facility] Comment on above: Performed By: #### 1 1866461 ####[facility] [address] [place] [address] CBC w/ Auto Diffon Erythrocyte distribution width (RBC) [Ratio] 17.1 % High 10.9-14.2 [facility] Comment on above: Performed By: #### 2 710784, 79921793, 1568738, 1032417, 08448156, 2877831, 0963420 ####[facility] [address] [place] [address] Hematocrit (Bld) [Volume fraction] 34.9 % Low 37.7-49.0 [facility] Comment on above: Performed By: #### 2 500007, 46040096, 6677281, 3258174, 86987326, 1735249, 5457435 ####[facility] [address] [place] [address] Hemoglobin (Bld) [Mass/Vol] 11.2 g/dL Low 13.5-17.5 [facility] Comment on above: Performed By: #### 2 935316, 83766141, 4323879, 8353280, 11631578, 9092745, 4502410 ####[facility] [address] [place] [address] MCH (RBC) [Entitic mass] 25.4 pg Low 27.0-34.0 [facility] Comment on above: Performed By: #### 2 497939, 94355102, 7760754, 3235613, 17117744, 9238390, 3964306 ####[facility] [address] [place] [address] MCHC (RBC) [Mass/Vol] 32.2 g/dL Normal 31.4-36.0 [facility] Comment on above: Performed By: #### 2 433493, 55439067, 6705430, 5287809, 30085601, 6120697, 3858443 ####[address] [place] [address] MCV (RBC) [Entitic vol] 79.1 fL Low 80.0-100.0 [facility] Comment on above: Performed By: #### 2 228142, 37278893, 0219196, 1322992, 70110145, 2126740, 1673557 ####[address] [address] Platelet mean volume (Bld) [Entitic vol] 8.8 fL Normal 6.4-10.8 [facility] Comment on above: Performed By: #### 2 539201, 20991681, 3377642, 5940554, 15642463, 8509355, 0362754 ####[address] [address] Platelets (Bld) [#/Vol] 327.0 E9/L Normal 150.0-500.0 [facility] Comment on above: Performed By: #### 2 584606, 77900767, 6742667, 0551930, 55677148, 9992800, 9559096 ####[address] [address] RBC (Bld) [#/Vol] 4.4 E12/L Normal 4.3-5.9 [facility] Comment on above: Performed By: #### 2 128981, 28994076, 9580874, 8651346, 87065026, 5849456, 0870244 ####[address] [place] [address] WBC corrected for nucl RBC Auto (Bld) [#/Vol] 6.8 E9/L Normal 4.0-11.0 [facility] Comment on above: Performed By: #### 2 142092, 30161362, 4983760, 7378003, 34027175, 0529209, 9688641 ####[address] [place] [address] CHEMISTRYOrdered By: SYSTEM SYSTEM on 01-10-2023 Lactate [...] 1 11 mmol/L [facility] Remisol CO2 [Moles/Vol] 29 mmol/L Normal 21 - 31 mmol/L [facility] Remisol Creatinine [Mass/Vol] 0.9 mg/dL Normal 0.5 - 1.3 mg/dL [facility] Remisol GFR/1.73 sq M.predicted among non-blacks MDRD (S/P/Bld) [Vol rate/Area] 97 mL/min/1.73 m2 Normal >=59mL/min/1 .73 m2 [facility] Chem S Globulin (S) [Mass/Vol] 4.8 g/dL High 1.4 - 4.0 gm/dL [facility] Remisol Glucose [Mass/Vol] 197 mg/dL Normal 55 - 199 mg/dL [facility] Remisol Lactate [Mass/Vol] 1.7 mmol/L Normal 0.5 - 2.2 mmol/L [facility] Remisol Potassium [Moles/Vol] 4.0 mmol/L Normal 3.5 - 5.3 mmol/L [facility] Remisol Protein [Mass/Vol] 8.2 g/dL High 6.0 - 7.8 gm/dL [facility] Remisol Sodium [Moles/Vol] 140 mmol/L Normal 135 - 145 mmol/L [facility] I.cardiac [Mass/Vol] 3.70 pg/mL Low 15.90 - 38.40 pg/mL [facility] Urea nitrogen [Mass/Vol] 19 mg/dL Normal 5 - 21 mg/dL [facility] Urea nitrogen/Creatinine [Mass ratio] 21 mg/mg High 10 - 20 [facility] CHEMISTRYOrdered By: Franci Lane on 01-10-2023 Natriuretic peptide B (Bld) [Mass/Vol] 52 pg/mL Normal 5 - 80 pg/mL [facility] Dawson PARKERon 01-10-2023 Albumin [Mass/Vol] 3.4 g/dL Normal 3.3-5.0 [facility] Comment on above: Performed By: #### 2 351584, 06348868, 3860185, 9051025, 90242293, 7983881, 3391490 ####[facility] [address] [place] [address] Albumin/Globulin (S) [Mass conc ratio] 0.7 Low 1.1-2.2 [facility] Comment on above: Performed By: #### 2 864627, 29461919, 7953185, 1804138, 11520274, 4957153, 8889870 ####[facility] [address] [place] [address] ALP [Catalytic activity/Vol] 61 Int._Unit/L Normal 21-98 [facility] Comment on above: Performed By: #### 2 645038, 35808868, 0619297, 3782030, 83786730, 5896707, 8498573 ####[facility] [address] [place] [address] ALT No additional P-5'-P [Catalytic activity/Vol] 11 Int._Unit/L Normal 6-46 [facility] Comment on above: Performed By: #### 2 819962, 70023168, 4405815, 0450962, 13881004, 4847002, 0787497 ####[facility] [address] [place] [address] AST [Catalytic activity/Vol] 16 Int._Unit/L Normal 5-43 [facility] Comment on above: Performed By: #### 2 496954, 71639518, 0668675, 8663048, 26062405, 0877044, 3610287 ####[facility] [address] [place] [address] Bilirubin [Mass/Vol] 0.6 mg/dL Normal 0.0-1.1 [facility] Comment on above: Performed By: #### 2 158773, 27001134, 3061848, 0448623, 53794828, 8087024, 5927469 ####[facility] [address] [place] [address] Creatinine [Mass/Vol] 0.9 mg/dL Normal 0.5-1.3 [facility] Comment on above: Performed By: #### 2 868098, 14715710, 5381956, 1289275, 28925900, 7730611, 3226499 ####[facility] [address] [place] [address] Globulin (S) [Mass/Vol] 4.8 g/dL High 1.4-4.0 [facility] Comment on above: Performed By: #### 2 462853, 92050585, 6199483, 8980458, 95402591, 5901139, 7408682 ####[facility] [address] [place] [address] Protein [Mass/Vol] 8.2 g/dL High 6.0-7.8 [facility] Comment on above: Performed By: #### 2 511107, 14175186, 3742607, 4642060, 47472905, 9677472, 5992030 ####[facility] [address] [place] [address] Urea nitrogen [Mass/Vol] 19 mg/dL Normal 5-21 [facility] Comment on above: Performed By: #### 2 075081, 32875900, 7880504, 8120976, 27578869, 6234909, 2960173 ####[facility] [address] [place] [address] Urea nitrogen/Creatinine [Mass ratio] 21 No Units High 10-20 [facility] Comment on above: Performed By: #### 2 505489, 21705073, 4449481, 1976883, 85204431, 6381605, 6999981 ####[facility] [address] [place] [address] Anion gap [Moles/Vol] 12 mmol/L Normal 6-16 [facility] Comment on above: Performed By: #### 2 291888, 74532414, 2891096, 2509397, 53017626, 8128360, 3329660 ####[facility] [address] [place] [address] Calcium [Mass/Vol] 9.2 mg/dL Normal 8.9-11.1 [facility] Comment on above: Performed By: #### 2 604972, 02909810, 8731408, 6939877, 35644299, 7844587, 8992639 ####[facility] [address] [place] [address] Chloride [Moles/Vol] 103 mmol/L Normal 101-111 [facility] Comment on above: Performed By: #### 2 721218, 56956588, 6410257, 9874213, 35501535, 7033186, 4542511 ####[facility] [address] [place] [address] CO2 [Moles/Vol] 29 mmol/L Normal 21-31 [facility] Comment on above: Performed By: #### 2 140951, 95202971, 8379519, 2674925, 18208553, 2096869, 7786053 ####[facility] [address] [place] [address] Glucose [Mass/Vol] 197 mg/dL Normal 55-199 [facility] Comment on above: Result Comment: If t his glucose result represents a fasting glucose, interpretation should refer to the following reference range: 55-99 mg/dL Performed By: #### 2 327095, 88140031, 3216424, 4553953, 00889661, 5695896, 3018829 ####[facility] [address] [place] [address] Potassium [Moles/Vol] 4.0 mmol/L Normal 3.5-5.3 [facility] Comment on above: Performed By: #### 2 670362, 67073005, 6047411, 4101867, 32400005, 9449133, 0143778 ####[facility] [address] [place] [address] Sodium [Moles/Vol] 140 mmol/L Normal 135-145 [facility] Comment on above: Performed By: #### 2 046809, 56981368, 4418500, 2387113, 21880946, 0807833, 1533580 ####[facility] [address] [place] [address] COAGULATIONOrdered By: Cari Arshad on 01-10-2023 aPTT Coag (PPP) [Time] 37.6 s High 25.1 - 36.5 second(s) [facility] Auto Coag INR Coag (PPP) [Relative time] 1.2 {INR} Invalid Interpretation Code [facility] Auto Coag PT Coag (PPP) [Time] 13.4 s High 9.4 - 1 2.5 second(s) [facility] Auto Coag Capillary Glucose POCon Glucose [Mass/Vol] 235 mg/dL High 55-99 [facility] Comment on above: Result Comment: Mary flores RN/ Performed By: #### 2 06857737 ####[facility] [address] [place] [address] Glucose [Mass/Vol] 105 mg/dL High 55-99 [facility] Comment on above: Result Comment: Mary flores RN/MD Performed By: #### 2 11661920 ####[facility] [address] [place] [address] Consent for Treatmenton Consent for Treatment [id number]:127 Normal [facility] ED Clinical Summaryon 2022 ED Clinical Summary Normal [facility] ED Patient Education Noteon 01-10-2023 ED Patient Education Note Normal [facility] ED Patient Summaryon 023 ED Patient Summary Normal [facility] Education Videoon [facility] Avoiding Infections in the Hospital Yes Normal [facility] HEMATOLOGYOrdered By: SYSTEM SYSTEM on 01-10-2023 [...] 17.1 % High 10.9 - 14.2 % [facility] HemeAutoSS Hematocrit (Bld) [Volume fraction] 34.9 % Low 37.7 - 49.0 % [facility] HemeAutoSS Hemoglobin (Bld) [Mass/Vol] 11.2 g/dL Low 13.5 - 17.5 gm/dL [facility] HemeAutoSS MCH (RBC) [Entitic mass] 25.4 pg Low 27.0 - 34.0 pg [facility] HemeAutoSS MCHC (RBC) [Mass/Vol] 32.2 g/dL Normal 31.4 - 36.0 gm/dL [facility] HemeAutoSS MCV (RBC) [Entitic vol] 79.1 fL Low 80.0 - 100.0 fL [facility] HemeAutoSS Platelet mean volume (Bld) [Entitic vol] 8.8 fL Normal 6.4 - 10.8 fL [facility] HemeAutoSS Platelets (Bld) [#/Vol] 327.0 E9/L Normal 150.0 - 500.0 E9/L [facility] HemeAutoSS RBC (Bld) [#/Vol] 4.4 E12/L Normal 4.3 - 5.9 E12/L [facility] HemeAutoSS WBC corrected for nucl RBC Auto (Bld) [#/Vol] 6.8 E9/L Normal 4.0 - 11.0 E9/L [facility] HemeAutoSS Lactic Acidon 01-10-2023 Lactate [Mass/Vol] 1.5 mmol/L Normal 0.5-2.2 [facility] Comment on above: Performed By: #### 2 699428 ####[facility] [address] [place] [address] Lactate [Mass/Vol] 1.7 mmol/L Normal 0.5-2.2 [facility] Comment on above: Performed By: #### 2 982050, 12834397, 6209104, 9963848, 74511156, 9982411, 7808716 ####[facility] [address] [place] [address] Monitor Recordon 01-10-2023 Monitor Record [id number]:127 Normal [facility] No Panel InformationOrdered By: EMEKA MICROBIOLOGY on 01-10-2023 Blood Culture Charcoal No growth at 5 days. Final to follow at 7 days. [facility] PT & PTTon 01-10-2023 aPTT Coag (PPP) [Time] 37.6 second(s) High 25.1-36.5 [facility] Comment on above: Result Comment: Para meter 15 days - 4 weeks 1 - 5 months 6 - 11 months 1 - 5 years 6 - 10 years 11 - 17 years PTT Mean: 35.4 (27.6-45.6) Mean: 33.5 (24.8-40.7) Mean: 32.4 (25.1-40.7) Mean: 31.6 (24.0-39.2) Mean: 31.6 (26.9-38.7) Mean: 31.0 (24.6-38.4) Pediatric Reference ranges were obtained from a study by johnny Ceja al. prepared from 1437 samples obtained at 7 different centers using the same coagulation reagent and instrumentation as [facility] [place]. Currently there are no coagulation studies available worldwide for children to 14 days, and no normal ranges. Heparin therapeutic range (represented by Anti-Factor Xa activity of 0.2 - 0.4 U/mL) corresponds to PTT of 56.6 - 109.0 sec. Performed By: #### 2 [id number], [id number], [id number], [id number], [id number] ####[facility] [address] [place] [address] INR Coag (PPP) [Relative time] 1.2 {INR} Invalid Interpretation Code [facility] Comment on above: Result Comment: INR results are specifically intended to assess patients stabilized on long-term Anticoagulation therapy suggested INR?s ?Less Intensive Anticoagulation? 2.0 ? 3.0Conventional Range 3.0 ? 4.5 Performed By: #### 2 [id number], [id number], [id number], [id number], [id number], [id number], [id number] ####[facility] [address] [place] [address] PT Coag (PPP) [Time] 13.4 second(s) High 9.4-12.5 [facility] Comment on above: Result Comment: 15 [...] the same coagulation reagent and instrumentation as [facility]. Currently there are no coagulation studies available worldwide for children to 14 days, and no normal ranges. Performed By: #### 2 789537, 97810659, 6026939, 3381397, 31076328, 6025514, 0635731 ####[facility] [address] [place] [address] Progress Note - Pharmacyon 0 01-10-2023 Progress Note - Pharmacy Normal [facility] Troponinon 01-10-2023 Troponin I.cardiac [Mass/Vol] 3.70 pg/mL Low 15.90-38.40 [facility] Comment on above: Result Comment: The 95% CI (Confidence Interval) PPV (Positive Predictive Value) for myocardial infarction in females is 38 pg/mL, in males 51 pg/mL. The results should be used in conjunction with clinical conditions of myocardial infarction.(Access High Sensitivity Troponin I Instructions For Use, Frank Hyacinth, December 2017) Performed By: #### 2 138005, 83489833, 1828260, 4529721, 97550576, 7447223, 9263156 ####[facility] [address] [place] [address] XR Foot 3+ Views Righton XR Foot 3+ Views Right Normal [facility] eGFRon 01-10-2023 GFR/1.73 sq M.predicted among non-blacks MDRD (S/P/Bld) [Vol rate/Area] 97 mL/min/1.73 m2 Normal >=59 [facility] Comment on above: Order Comment: Order added by Discern Expert. Result Comment: Product Analyst claus kidney disease could be indicated at eGFR's of less than 60 mL/min/1.73m2. Kidney failure is indicated at less than 15 mL/min/1.73m2. Performed By: #### 2 275086, 52400842, 9952633, 4971393, 55075481, 4692763, 5572614 ####[facility] [address] [place] [address] Nursing Note - Woundon 11-03 Nursing Note - Wound [id number]#2.00CD:127 Normal [facility] Prescriptions/Work Noteson 0 10-29-2022 Prescriptions/Work Notes [id number]#1.00CD:127 Normal [facility] Consent for Procedure/Surger yon 10-23-2022 Consent for Procedure/Surgery [id number]#1.00CD:127 Normal [facility] Prescriptions/Work Noteson 0 10-23-2022 Prescriptions/Work Notes [id number]#1.00CD:127 Normal [facility] Consent for Treatmenton 10-09 Consent for Treatment [id number]#1.00CD:127 Normal [facility] Multi-Wound Charton 10-23-19 Multi-Wound Chart [id number]#1.00CD:127 Normal [facility] Nursing Assessment - Woundon 10-22-2022 Nursing Assessment - Wound [id number]#1.00CD:127 [facility] Physician Orderon 10-22-2022 Physician Order [id number]#1.00CD:127 [facility] Progress Note - Woundon 10-09 Progress Note - Wound [id number]#1.00CD:127 [facility] Physician Orderon 10-21-2022 Physician Order [id number]#1.00CD:127 [facility] XR Hip 2-3 Views Right + Pel vison 10-13-2022 XR Hip 2-3 Views Right + Pelvis [facility] XR Knee Complete 4+ Views Ri ghton 10-13-2022 XR Knee Complete 4+ Views Right [facility] Consent for Treatmenton Consent for Treatment [id number]#1.00CD:127 [facility] Physician Orderon 10-10-2022 Physician Order [id number]#1.00CD:127 [facility] Progress Note - Woundon Progress Note - Wound [id number]#2.00CD:127 [facility] Consent for Treatmenton 09-10 Consent for Treatment [id number]#1.00CD:127 [facility] Multi-Wound Charton 10-09-19 Multi-Wound Chart [id number]#1.00CD:127 [facility] Nursing Assessment - Woundon 10-08-2022 Nursing Assessment - Wound [id number]#1.00CD:127 [facility] Nursing Note - Woundon 10-08 Nursing Note - Wound [id number]#1.00CD:127 [facility] Physician Orderon 10-08-2022 Physician Order [id number]#1.00CD:127 [facility] Physician Order [id number]#1.00CD:127 [facility] Procedure - Woundon 10-09-19 Procedure - Wound [id number]#1.00CD:127 [facility] Physician Orderon 09-30-2022 Physician Order [id number]#1.00CD:127 [facility] Consent for Procedure/Surger yon 09-24-2022 Consent for Procedure/Surgery [id number]#1.00CD:127 [facility] Consent for Treatmenton 09-08 Consent for Treatment [id number]#1.00CD:127 [facility] Multi-Wound Charton 09-25-19 Multi-Wound Chart [id number]#1.00CD:127 [facility] Nursing Assessment - Woundon 09-24-2022 Nursing Assessment - Wound [id number]#1.00CD:127 [facility] Nursing Note - Woundon 09-24 Nursing Note - Wound [id number]#1.00CD:127 [facility] Physician Orderon 09-24-2022 Physician Order [id number]#1.00CD:127 [facility] Physician Order [id number]#1.00CD:127 [facility] Physician Order [id number]#1.00CD:127 [facility] Procedure - Woundon 09-25-19 Procedure - Wound [id number]#1.00CD:127 [facility] Progress Note - Woundon 09-08 Progress Note - Wound [id number]#1.00CD:127 [facility] Coding Summary.on 09-05-2022 Coding Summary. [facility] Consent for Treatmenton 08-10 Consent for Treatment [id number]#1.00CD:127 [facility] Multi-Wound Charton 09-04-19 Multi-Wound Chart [id number]#1.00CD:127 [facility] Nursing Assessment - Woundon 09-03-2022 Nursing Assessment - Wound [id number]#1.00CD:127 [facility] Nursing Note - Woundon 09-03 Nursing Note - Wound [id number]#1.00CD:127 [facility] Physician Orderon 09-03-2022 Physician Order [id number]#1.00CD:127 [facility] Progress Note - Woundon 08-10 Progress Note - Wound [id number]#1.00CD:127 [facility] Physician Orderon 09-02-2022 Physician Order [id number]#1.00CD:127 [facility] Operative Reporton 04-22-202 3 Operative Report [facility] Comment on above: Result Comment: Elec tronically Signed By: Ramiro Epperson DPM.br\Date and Time Signed: 08/30/22 11:29 EDT Coding Summary.on 08-28-2022 Coding Summary. [facility] Nursing Assessment - Woundon 08-28-2022 Nursing Assessment - Wound [id number]#1.00CD:127 [facility] Nursing Note - Woundon 08-28 Nursing Note - Wound [id number]#1.00CD:127 [facility] Physician Orderon 08-28-2022 Physician Order [id number]#1.00CD:127 [facility] Progress Note - Woundon 08-10 Progress Note - Wound [id number]#1.00CD:127 [facility] Consent for Treatmenton 08-09 Consent for Treatment [id number]#1.00CD:127 [facility] Multi-Wound Charton 08-28-19 Multi-Wound Chart [id number]#1.00CD:127 [facility] C Blood Charcoalon Blood Culture Charcoal [facility] Comment on above: Performed By: #### 1 9807973 ####[facility] [address] [place] [address] Blood Culture Charcoal [facility] Comment on above: Performed By: #### 1 4876088 ####[facility] [address] [place] [address] Coding Summary.on 08-20-2022 Coding Summary. [facility] Inpatient Clinical Summaryon 08-20-2022 Inpatient Clinical Summary [facility] Inpatient Patient Summaryon 08-20-2022 Inpatient Patient Summary [facility] Consent for PICC lineon 08-09 Consent for PICC line [id number]#1.00CD:127 Normal [facility] Discharge Instructionson Discharge Instructions [id number]#1.00CD:127 Normal [facility] General Message Officeon General Message Office Normal [facility] Message from Medicareon 08-09 Message from Medicare [id number]#1.00CD:127 Normal [facility] Transfer Documentson 023 Transfer Documents [id number]#1.00CD:127 Normal [facility] Auto Diffon 08-18-2022 Basophils/100 WBC (Bld) 0.7 % Normal 0.0-2.0 [facility] Comment on above: Order Comment: Order Added by Discern Expert. Performed By: #### 1 7342318, 8017625, 0609837, 68741706, 8916385, 6453257, 2813853 ####[facility] [address] [place] [address] Basophils/Leukocytes Auto (Bld) [Pure # fraction] 0.1 E9/L Normal 0.0-0.2 [facility] Comment on above: Order Comment: Order Added by Discern Expert. Performed By: #### 1 7585352, 6254236, 1697198, 28873690, 0190542, 7313219, 6349205 ####[facility] [address] [place] [address] Eosinophils/100 WBC (Bld) 5.8 % Normal 0.0-8.0 [facility] Comment on above: Order Comment: Order Added by Discern Expert. Performed By: #### 1 4519779, 1902884, 8044490, 28057983, 6175025, 8763850, 5863647 ####[facility] [address] [place] [address] Eosinophils/Leukocyte s Auto (Bld) [Pure # fraction] 0.4 E9/L Normal 0.0-0.5 [facility] Comment on above: Order Comment: Order Added by Discern Expert. Performed By: #### 1 5188496, 6390957, 5314551, 86217578, 2637380, 8489763, 1609940 ####[address] [address] Lymphocytes/100 WBC (Bld) 25.6 % Normal 14.0-50.0 [facility] Comment on above: Order Comment: Order Added by Discern Expert. Performed By: #### 1 8594785, 0876142, 9908325, 42117567, 2415286, 1927548, 9107013 ####[address] [address] Lymphocytes/Leukocyte s Auto (Bld) [Pure # fraction] 1.9 E9/L Normal 1.0-4.0 [facility] Comment on above: Order Comment: Order Added by Discern Expert. Performed By: #### 1 6524211, 4757756, 0902156, 68366097, 9280991, 7666018, 7195369 ####[address] [address] Monocytes/100 WBC (Bld) 5.7 % Normal 4.0-14.0 [facility] Comment on above: Order Comment: Order Added by Discern Expert. Performed By: #### 1 5289511, 5412538, 6857167, 04318290, 8703497, 2265009, 2584358 ####[address] [address] Monocytes/Leukocytes Auto (Bld) [Pure # fraction] 0.4 E9/L Normal 0.2-1.0 [facility] Comment on above: Order Comment: Order Added by Discern Expert. Performed By: #### 1 7868980, 4539654, 4402793, 67066411, 3257424, 6980050, 6622649 ####[facility] [place] [address] Neutrophils/100 WBC (Bld) 62.2 % Normal 36.0-75.0 [facility] Comment on above: Order Comment: Order Added by Discern Expert. Performed By: #### 1 6973946, 9125891, 8333483, 77193560, 7632347, 4000860, 3376625 ####[facility] [address] [place] [address] Neutrophils/Leukocyte s Auto (Bld) [Pure # fraction] 4.6 E9/L Normal 2.0-7.5 [facility] Comment on above: Order Comment: Order Added by Discern Expert. Performed By: #### 1 5464919, 1175248, 3739667, 71650677, 6773594, 7809897, 8614754 ####[facility] [address] [place] [address] BMPon 08-18-2022 Anion gap [Moles/Vol] 11 mmol/L Normal 6-16 [facility] Comment on above: Performed By: #### 1 0371366, 5266792, 9027539, 49664430, 7522076, 0373970, 8594323 ####[facility] [address] [place] [address] Calcium [Mass/Vol] 8.5 mg/dL Low 8.9-11.1 [facility] Comment on above: Performed By: #### 1 9960352, 0574066, 7445096, 06277817, 4293978, 0179171, 0773773 ####[facility] [address] [place] [address] Chloride [Moles/Vol] 105 mmol/L Normal 101-111 [facility] Comment on above: Performed By: #### 1 0999828, 9827896, 5422181, 96831898, 0258607, 1648055, 0034697 ####[facility] [address] [place] [address] CO2 [Moles/Vol] 26 mmol/L Normal 21-31 [facility] Comment on above: Performed By: #### 1 9443061, 7172573, 8690735, 96318545, 3447739, 7235617, 1111840 ####[facility] [address] [place] [address] Creatinine [Mass/Vol] 1.2 mg/dL Normal 0.5-1.3 [facility] Comment on above: Performed By: #### 1 0040026, 0627269, 6864929, 04459996, 1305877, 1722463, 2745707 ####[facility] [address] [place] [address] Glucose [Mass/Vol] 141 mg/dL Normal 55-199 [facility] Comment on above: Result Comment: If t his glucose result represents a fasting glucose, interpretation should refer to the following reference range: 55-99 mg/dL Performed By: #### 1 4282019, 7825470, 2200689, 38300988, 4348460, 5727414, 3018918 ####[facility] [address] [place] [address] Potassium [Moles/Vol] 3.7 mmol/L Normal 3.5-5.3 [facility] Comment on above: Performed By: #### 1 6399760, 5134253, 0445753, 73859634, 8555050, 6423098, 8619888 ####[facility] [address] [place] [address] Sodium [Moles/Vol] 138 mmol/L Normal 135-145 [facility] Comment on above: Performed By: #### 1 7956071, 8790072, 6287283, 05095160, 5816293, 6111715, 0957882 ####[facility] [address] [place] [address] Urea nitrogen [Mass/Vol] 25 mg/dL High 5-21 [facility] Comment on above: Performed By: #### 1 7750119, 9196094, 6815559, 34556564, 5756196, 8732649, 5632149 ####[facility] [address] [place] [address] Urea nitrogen/Creatinine [Mass ratio] 21 No Units High 10-20 [facility] Comment on above: Performed By: #### 1 7740312, 6259426, 0368381, 00038526, 4258786, 9809475, 5780200 ####[facility] [address] [place] [address] C Woundon 08-18-2022 Wound Culture Normal [facility] Comment on above: Performed By: #### 2 372791 ####[facility] [address] [place] [address] CBC w/ Auto Diffon Erythrocyte distribution width (RBC) [Ratio] 16.0 % High 10.9-14.2 [facility] Comment on above: Performed By: #### 1 1415284, 6613216, 2561242, 32800852, 8076396, 8852457, 3277029 ####[facility] [address] [place] [address] Hematocrit (Bld) [Volume fraction] 26.2 % Low 37.7-49.0 [facility] Comment on above: Performed By: #### 1 8673562, 9803079, 0338284, 71287360, 7775613, 4662321, 1910568 ####[facility] [address] [place] [address] Hemoglobin (Bld) [Mass/Vol] 8.1 g/dL Low 13.5-17.5 [facility] Comment on above: Performed By: #### 1 2976986, 2187236, 2043857, 59220945, 0227752, 5381878, 8270007 ####[facility] [address] [place] [address] MCH (RBC) [Entitic mass] 23.1 pg Low 27.0-34.0 [facility] Comment on above: Performed By: #### 1 1474109, 3634996, 6894579, 20327647, 0331564, 2170496, 4356095 ####[facility] [address] [place] [address] MCHC (RBC) [Mass/Vol] 30.8 g/dL Low 31.4-36.0 [facility] Comment on above: Performed By: #### 1 8278928, 2027758, 9916895, 46697492, 0894541, 0811033, 6340221 ####[place] [address] MCV (RBC) [Entitic vol] 75.1 fL Low 80.0-100.0 [facility] Comment on above: Performed By: #### 1 7511552, 5616899, 3510017, 99725191, 1972453, 9643403, 9236395 ####[place] [address] Platelet mean volume (Bld) [Entitic vol] 7.5 fL Normal 6.4-10.8 [facility] Comment on above: Performed By: #### 1 1838534, 9874788, 5382308, 75686913, 6171631, 4365815, 2990887 ####[place] [address] Platelets (Bld) [#/Vol] 369.0 E9/L Normal 150.0-500.0 [facility] Comment on above: Performed By: #### 1 9041579, 3791067, 6888826, 09540984, 0493632, 0389873, 6130444 ####[address] [address] RBC (Bld) [#/Vol] 3.5 E12/L Low 4.3-5.9 [facility] Comment on above: Performed By: #### 1 5638166, 7967483, 1843776, 39380707, 1245245, 1388921, 7375290 ####[place] [address] WBC corrected for nucl RBC Auto (Bld) [#/Vol] 7.5 E9/L Normal 4.0-11.0 [facility] Comment on above: Performed By: #### 1 6363912, 0653870, 2488836, 82553437, 6861534, 3622044, 7383092 ####[facility] [address] [place] [address] CHEMISTRYOrdered By: Lab ROP User on 08-18-2022 Glucose [Mass/Vol] 157 mg/dL High 55 - 99 mg/dL [facility] POC Subsection Comment on above: Result Comment: Katty todd Meter POC Device SN [id number] Invalid Interpretation Code FT POC Subsection POC User ID [id number] Invalid Interpretation Code [facility] POC Subsection POC Username LESA AGUILAR Invalid Interpretation Code [facility] POC Subsection Glucose [Mass/Vol] 126 mg/dL High 55 - 99 mg/dL [facility] POC Subsection Comment on above: Result Comment: Katty todd Meter POC Device SN [id number] Invalid Interpretation Code FT POC Subsection POC User ID [id number] Invalid Interpretation Code [facility] POC Subsection POC Username LESA AGUILAR Invalid Interpretation Code [facility] POC Subsection CHEMISTRYOrdered By: SYSTEM SYSTEM on 08-18-2022 Anion gap [Moles/Vol] 11 mmol/L Normal 6 - 16 mEq/L [facility] Calcium [Mass/Vol] 8.5 mg/dL Low 8.9 - 11. 1 mg/dL [facility] Chloride [Moles/Vol] 105 mmol/L Normal 101 - 1 11 mmol/L [facility] CO2 [Moles/Vol] 26 mmol/L Normal 21 - 31 mmol/L [facility] Creatinine [Mass/Vol] 1.2 mg/dL Normal 0.5 - 1.3 mg/dL [facility] GFR/1.73 sq M.predicted among blacks MDRD (S/P/Bld) [Vol rate/Area] mL/min/1.73 m2 Normal >=59mL/min/1 .73 m2 [facility] Chem S GFR/1.73 sq M.predicted among non-blacks MDRD (S/P/Bld) [Vol rate/Area] mL/min/1.73 m2 Normal >=59mL/min/1 .73 m2 [facility] Chem S Glucose [Mass/Vol] 141 mg/dL Normal [...] Confirmation at: 08/18/2022 07:23:55 Capillary Glucose POCon 04-1 Glucose [Mass/Vol] 157 mg/dL High 55-99 [facility] Comment on above: Result Comment: Katty todd Meter Performed By: #### 2 [id number] ####[facility] [address] [place] [address] Glucose [Mass/Vol] 126 mg/dL High 55-99 [facility] Comment on above: Result Comment: Katty todd Meter Performed By: #### 2 82984668 ####[facility] [address] [place] [address] Ferritinon 08-18-2022 Ferritin [Mass/Vol] 26 ng/mL Normal 24-336 [facility] Comment on above: Result Comment: NORM ALS MEN <30 YRS 16-132 ng/mL MEN >30 YRS 8-338 ng/mL WOMEN (PREMEN) 6-104 ng/mL WOMEN (POSTMEN) 12-210 ng/mL Performed By: #### 2 210883, 3598562, 29004589, 19709414, 8227588, 4028216, 2022441, 76697652, 1888198, 2815432 ####[facility] [address] [place] [address] HEMATOLOGYOrdered By: SYSTEM SYSTEM on 08-18-2022 Basophils/100 [...] 4.6 E9/L Normal 2.0 - 7.5 E9/L [facility] HemeAutoSS HEMATOLOGYOrdered By: Carola Limon on 08-18-2022 [...] Present (08/18/22 6:01 AM) Normal [facility] HemeManSS Morphology Errol (Bld) [Interp] See Morphology (08/18/22 6:01 AM) Normal [facility] HemeManSS Platelet mean volume (Bld) [Entitic vol] 7.5 fL Normal 6.4 - 10.8 fL [facility] HemeAutoSS Platelets (Bld) [#/Vol] 369.0 E9/L Normal 150.0 - 500.0 E9/L [facility] HemeAutoSS RBC (Bld) [#/Vol] 3.5 E12/L Low 4.3 - 5.9 E12/L [facility] HemeAutoSS WBC corrected for nucl RBC Auto (Bld) [#/Vol] 7.5 E9/L Normal 4.0 - 11.0 E9/L [facility] HemeAutoSS Inpatient Patient Summaryon 08-18-2022 Inpatient Patient Summary Normal [facility] Interdisciplinary Note - Virgil e Manageron 08-18-2022 Interdisciplinary Note - Economist Research Assistant Normal [facility] Comment on above: Result Comment: Elec tronically Signed By: Franci Peace\neno\Date and Time Signed: 08/18/22 10:16 EDT IntraOperative Documentson 0 08-18-2022 IntraOperative Documents [id number]#1.00CD:127 Normal [facility] Magnesiumon 08-18-2022 Magnesium [Mass/Vol] 1.9 mg/dL Normal 1.3-2.4 [facility] Comment on above: Performed By: #### 1 7099997, 7763839, 6538774, 12668490, 5283087, 5865453, 4698978 ####[facility] [address] [place] [address] Monitor Recordon 08-18-2022 Monitor Record [id number]#1.00CD:127 Normal [facility] Monitor Record [id number]#1.00CD:127 Normal [facility] Morphon 08-18-2022 Hypochromia Auto Ql (Bld) Present [facility] Comment on above: Order Comment: Order Added by Discern Expert. Performed By: #### 1 0117348, 2786401, 6603219, 20146485, 1644497, 6027463, 3584644 ####[facility] [address] [place] [address] Microcytes Ql (Bld) Present [facility] Comment on above: Order Comment: Order Added by Discern Expert. Performed By: #### 1 8381670, 1978582, 4000166, 82378060, 5864898, 0987615, 1147073 ####[facility] [address] [place] [address] Morphology Errol (Bld) [Interp] See Morphology Normal [facility] Comment on above: Order Comment: Order Added by Discern Expert. Performed By: #### 1 1892131, 0916802, 0547450, 52863845, 5244246, 6282300, 7959368 ####[facility] [address] [place] [address] Phosphoruson 08-18-2022 Phosphate [Mass/Vol] 3.4 mg/dL Normal 1.9-4.6 [facility] Comment on above: Performed By: #### 1 3475787, 8266551, 0480995, 63439555, 6916681, 1323804, 4962604 ####[facility] [address] [place] [address] Progress Note - Pharmacyon 0 08-18-2022 Progress Note - Pharmacy Normal [facility] Progress Note-Nurseon 2022 Progress Note-Nurse Normal [facility] Vanco Peakon 08-18-2022 VANCOMYCIN 15 microgram/mL Abnormal 20-40 [facility] Comment on above: Order Comment: pleas e draw level one hour after infusion Result Comment: Crit ical Result S_VANC_P:15.0 Called to SAMIR VALENZUELA AT 3S by ROBBI MIRANDA And Read Back For Confirmation at: 08/18/2022 07:23:55 Performed By: #### 2 943741 ####[facility] [address] [place] [address] XR Chest Single Viewon 08-18 XR Chest Single View Normal [facility] eGFRon 08-18-2022 GFR/1.73 sq M.predicted among blacks MDRD (S/P/Bld) [Vol rate/Area] mL/min/{1.73_m2} Normal >=59 [facility] Comment on above: Order Comment: Order added by Discern Expert. Result Comment: eGFR is race adjusted. AA=. Performed By: #### 1 2946255, 3577757, 4151614, 49336861, 8352932, 9613227, 1154367 ####[facility] [address] [place] [address] GFR/1.73 sq M.predicted among non-blacks MDRD (S/P/Bld) [Vol rate/Area] mL/min/{1.73_m2} Normal >=59 [facility] Comment on above: Order Comment: Order added by Discern Expert. Result Comment: Product Analyst claus kidney disease could be indicated at eGFR's of less than 60 mL/min/1.73m2. Kidney failure is indicated at less than 15 mL/min/1.73m2. Performed By: #### 1 1401633, 9489590, 1109486, 81510890, 3079607, 1527189, 2209015 ####[facility] [address] [place] [address] Auto Diffon 08-17-2022 Basophils/100 WBC (Bld) 1.0 % Normal 0.0-2.0 [facility] Comment on above: Order Comment: Order Added by Discern Expert. Performed By: #### 2 009844, 98212726, 2403415, 5661035, 50032242, 7192412 ####[address] [address] Basophils/Leukocytes Auto (Bld) [Pure # fraction] 0.1 E9/L Normal 0.0-0.2 [facility] Comment on above: Order Comment: Order Added by Discern Expert. Performed By: #### 2 157656, 91301347, 9346259, 1685237, 53558668, 4488992 ####[place] [address] [place] [address] Eosinophils/100 WBC (Bld) 7.1 % Normal 0.0-8.0 [facility] Comment on above: Order Comment: Order Added by Discern Expert. Performed By: #### 2 808851, 53167230, 4328414, 2051148, 11032557, 6227565 ####[address] [address] Eosinophils/Leukocyte s Auto (Bld) [Pure # fraction] 0.4 E9/L Normal 0.0-0.5 [facility] Comment on above: Order Comment: Order Added by Discern Expert. Performed By: #### 2 396233, 60158023, 0448173, 1134142, 70760249, 6147765 ####[address] [address] Lymphocytes/100 WBC (Bld) 27.2 % Normal 14.0-50.0 [facility] Comment on above: Order Comment: Order Added by Discern Expert. Performed By: #### 2 859154, 31920726, 5126735, 8259200, 81701739, 0466781 ####[address] [place] [address] Lymphocytes/Leukocyte s Auto (Bld) [Pure # fraction] 1.6 E9/L Normal 1.0-4.0 [facility] Comment on above: Order Comment: Order Added by Discern Expert. Performed By: #### 2 460797, 35450177, 0752940, 7840316, 29294280, 4151367 ####[facility] [address] [place] [address] Monocytes/100 WBC (Bld) 6.3 % Normal 4.0-14.0 [facility] Comment on above: Order Comment: Order Added by Discern Expert. Performed By: #### 2 978984, 24187491, 9230617, 1430795, 50059394, 0190119 ####[address] [place] [address] Monocytes/Leukocytes Auto (Bld) [Pure # fraction] 0.4 E9/L Normal 0.2-1.0 [facility] Comment on above: Order Comment: Order Added by Discern Expert. Performed By: #### 2 868768, 73039996, 1809657, 8473210, 59376325, 3958147 ####[address] [place] [address] Neutrophils/100 WBC (Bld) 58.4 % Normal 36.0-75.0 [facility] Comment on above: Order Comment: Order Added by Discern Expert. Performed By: #### 2 146028, 61175849, 9180187, 9457678, 84253645, 8171575 ####[address] [place] [address] Neutrophils/Leukocyte s Auto (Bld) [Pure # fraction] 3.4 E9/L Normal 2.0-7.5 [facility] Comment on above: Order Comment: Order Added by Discern Expert. Performed By: #### 2 355582, 23589627, 1931938, 3789972, 18646387, 3830200 ####[facility] [address] [place] [address] BMPon 08-17-2022 Anion gap [Moles/Vol] 11 mmol/L Normal 6-16 [facility] Comment on above: Performed By: #### 2 311427, 25092042, 5613424, 3258343, 54241762, 0051199 ####[address] [place] [address] Calcium [Mass/Vol] 8.4 mg/dL Low 8.9-11.1 [facility] Comment on above: Performed By: #### 2 404243, 05747231, 9878059, 2054654, 42248631, 6370096 ####[facility] [address] [place] [address] Chloride [Moles/Vol] 104 mmol/L Normal 101-111 [facility] Comment on above: Performed By: #### 2 132992, 14284091, 4369741, 7975211, 84187141, 3401183 ####[facility] [address] [place] [address] CO2 [Moles/Vol] 25 mmol/L Normal 21-31 [facility] Comment on above: Performed By: #### 2 583443, 55672385, 6246433, 7965710, 09050232, 6399769 ####[facility] [address] [place] [address] Creatinine [Mass/Vol] 1.3 mg/dL Normal 0.5-1.3 [facility] Comment on above: Performed By: #### 2 879072, 14682785, 3019225, 3690829, 44664737, 8790330 ####[facility] [address] [place] [address] Glucose [Mass/Vol] 236 mg/dL High 55-199 [facility] Comment on above: Result Comment: If t his glucose result represents a fasting glucose, interpretation should refer to the following reference range: 55-99 mg/dL Performed By: #### 2 043546, 91351287, 2781518, 0845630, 49130739, 8911929 ####[facility] [address] [place] [address] Potassium [Moles/Vol] 3.8 mmol/L Normal 3.5-5.3 [facility] Comment on above: Performed By: #### 2 816276, 26519468, 7964773, 0274310, 58008014, 1914736 ####[facility] [address] [place] [address] Sodium [Moles/Vol] 136 mmol/L Normal 135-145 [facility] Comment on above: Performed By: #### 2 099272, 49507002, 2416729, 4598387, 04364598, 3263946 ####[facility] [address] [place] [address] Urea nitrogen [Mass/Vol] 26 mg/dL High 5-21 [facility] Comment on above: Performed By: #### 2 259733, 13663873, 0231620, 7657124, 93436411, 4504439 ####[facility] [address] [place] [address] Urea nitrogen/Creatinine [Mass ratio] 20 No Units Normal 10-20 [facility] Comment on above: Performed By: #### 2 204526, 21518383, 4576949, 2179869, 27404538, 1368510 ####[facility] [address] [place] [address] CBC w/ Auto Diffon 3 Erythrocyte distribution width (RBC) [Ratio] 16.1 % High 10.9-14.2 [facility] Comment on above: Performed By: #### 2 604803, 83975056, 8300264, 6524766, 23106413, 2438111 ####[facility] [address] [place] [address] Hematocrit (Bld) [Volume fraction] 26.7 % Low 37.7-49.0 [facility] Comment on above: Performed By: #### 2 688997, 56531965, 4850636, 7791256, 03904329, 1326114 ####[facility] [address] [place] [address] Hemoglobin (Bld) [Mass/Vol] 8.3 g/dL Low 13.5-17.5 [facility] Comment on above: Performed By: #### 2 854364, 93376013, 7009913, 1701343, 98775914, 9228709 ####[address] [place] [address] MCH (RBC) [Entitic mass] 23.3 pg Low 27.0-34.0 [facility] Comment on above: Performed By: #### 2 648073, 55329260, 2109929, 4959115, 65567122, 4154722 ####[address] MCHC (RBC) [Mass/Vol] 31.1 g/dL Low 31.4-36.0 [facility] Comment on above: Performed By: #### 2 930242, 83849185, 3241374, 4655577, 46747779, 6433754 ####[address] [address] MCV (RBC) [Entitic vol] 75.0 fL Low 80.0-100.0 [facility] Comment on above: Performed By: #### 2 896023, 79086434, 6546303, 4624385, 45822194, 7246347 ####[address] [address] Platelet mean volume (Bld) [Entitic vol] 7.8 fL Normal 6.4-10.8 [facility] Comment on above: Performed By: #### 2 867977, 75577381, 6534071, 1739569, 27461850, 8050316 ####[address] [address] Platelets (Bld) [#/Vol] 353.0 E9/L Normal 150.0-500.0 [facility] Comment on above: Performed By: #### 2 282837, 58760843, 1924238, 6439074, 87498075, 0537440 ####[address] [address] RBC (Bld) [#/Vol] 3.6 E12/L Low 4.3-5.9 [facility] Comment on above: Performed By: #### 2 854454, 57995775, 1309188, 9004954, 93845273, 5546866 ####[facility] [address] [place] [address] WBC corrected for nucl RBC Auto (Bld) [#/Vol] 5.9 E9/L Normal 4.0-11.0 [facility] Comment on above: Performed By: #### 2 173885, 90473203, 2138331, 3340316, 03693669, 4453198 ####[facility] [address] [place] [address] CHEMISTRYOrdered By: Lab ROP User on 08-17-2022 Glucose [Mass/Vol] 169 mg/dL High 55 - 99 mg/dL [facility] POC Subsection Comment on above: Result Comment: Katty todd Meter POC Device SN [id number] Invalid Interpretation Code [facility] POC Subsection POC User ID [id number] Invalid Interpretation Code [facility] POC Subsection POC Username MIN SHARPE Invalid Interpretation Code [facility] POC Subsection CHEMISTRYOrdered By: SYSTEM SYSTEM on 08-17-2022 Anion gap [Moles/Vol] 11 mmol/L Normal 6 - 16 mEq/L [facility] Remisol Calcium [Mass/Vol] 8.4 mg/dL Low 8.9 - 11. 1 mg/dL [facility] Remisol Chloride [Moles/Vol] 104 mmol/L Normal 101 - 1 11 mmol/L [facility] Remisol CO2 [Moles/Vol] 25 mmol/L Normal 21 - 31 mmol/L [facility] Remisol Creatinine [Mass/Vol] 1.3 mg/dL Normal 0.5 - 1.3 mg/dL [facility] Remisol GFR/1.73 sq M.predicted among blacks MDRD (S/P/Bld) [Vol rate/Area] mL/min/1.73 m2 Normal >=59mL/min/1 .73 m2 [facility] Chem S GFR/1.73 sq M.predicted among non-blacks MDRD (S/P/Bld) [Vol rate/Area] 56 mL/min/1.73 m2 Low >=59mL/min/1 .73 m2 [facility] Chem S Glucose [Mass/Vol] 236 mg/dL High 55 - 199 mg/dL [facility] Remisol Potassium [Moles/Vol] 3.8 mmol/L Normal 3.5 - 5.3 mmol/L [facility] Remisol Sodium [Moles/Vol] 136 mmol/L Normal 135 - 145 mmol/L [facility] Remisol Urea nitrogen [Mass/Vol] 26 mg/dL High 5 - 21 mg/dL [facility] Remisol Urea nitrogen/Creatinine [Mass ratio] 20 mg/mg Normal 10 - 20 [facility] Remisol Vancomycin trough [Moles/Vol] 20 microgram/mL Normal 10 - 20 mcg/mL [facility] Remisol Capillary Glucose POCon Glucose [Mass/Vol] 169 mg/dL High 55-99 [facility] Comment on above: Result Comment: Katty brooks Meter Performed By: #### 2 59739152 ####[facility] [address] [place] [address] Glucose [Mass/Vol] 162 mg/dL High 55- [facility] Comment on above: Result Comment: Mary flores RN/ Performed By: #### 2 83861384 ####[facility] [address] [place] [address] Glucose [Mass/Vol] 146 mg/dL High - [facility] Comment on above: Result Comment: Mary COLLAZO Performed By: #### 2 87326050 ####[facility] [address] [place] [address] Glucose [Mass/Vol] 138 mg/dL High 55- [facility] Comment on above: Result Comment: Mary COLLAZO Performed By: #### 2 45475002 ####[facility] [address] [place] [address] HEMATOLOGYOrdered By: SYSTEM SYSTEM on 08-17-2022 Basophils/100 WBC (Bld) 1.0 % Normal 0.0 - 2.0 % [facility] HemeAutoSS Basophils/Leukocytes Auto (Bld) [Pure # fraction] 0.1 E9/L Normal 0.0 - 0.2 E9/L [facility] HemeAutoSS Eosinophils/100 WBC (Bld) 7.1 % Normal [...] path review performed on 08-13-22. Reviewed by bab. Platelet mean volume (Bld) [Entitic vol] 7.8 fL Normal 6.4 - 10.8 fL [facility] HemeAutoSS Platelets (Bld) [#/Vol] 353.0 E9/L Normal 150.0 - 500.0 E9/L [facility] HemeAutoSS RBC (Bld) [#/Vol] 3.6 E12/L Low 4.3 - 5.9 E12/L [facility] HemeAutoSS WBC corrected for nucl RBC Auto (Bld) [#/Vol] 5.9 E9/L Normal 4.0 - 11.0 E9/L [facility] HemeAutoSS Morphon 08-17-2022 Hypochromia Auto Ql (Bld) Present Normal [facility] Comment on above: Order Comment: Order Added by Discern Expert. Performed By: #### 2 988854, 17962599, 0578854, 7527084, 29130154, 4949069 ####[facility] [address] [place] [address] Microcytes Ql (Bld) Present Normal [facility] Comment on above: Order Comment: Order Added by Discern Expert. Performed By: #### 2 883565, 57518184, 5775908, 9437145, 21806681, 9294502 ####[facility] [address] [place] [address] Morphology Errol (Bld) [Interp] See Morphology Normal [facility] Comment on above: Order Comment: Order Added by Discern Expert. Result Comment: Resu lts are consistent with previous path review performed on 08-13-22. Reviewed by bab. Performed By: #### 2 166088, 48286566, 4290800, 5587117, 01643480, 9959834 ####[facility] [address] [place] [address] Progress Note - Pharmacyon 0 08-17-2022 Progress Note - Pharmacy Normal [facility] Progress Note-Nurseon 2022 Progress Note-Nurse Spoke to telepharmacy--vanco not okay to administer at this time, hold vanco and new orders will be placed based on 4am trough. Normal [facility] Progress Note-Physicianon Progress Note-Physician Normal [facility] Comment on above: Result Comment: Elec tronically Signed By: Geovanna GILBERT, Chaitanya Rick\.br\Date and Time Signed: 08/17/22 10:04 EDT Vanco Troughon 08-17-2022 VANCOMYCIN 20 microgram/mL Normal 10-20 [facility] Comment on above: Order Comment: pleas e draw one hour prior to infusion Performed By: #### 2 593720, 37767905, 2379987, 2135920, 82854026, 4917122 ####[facility] [address] [place] [address] eGFRon 08-17-2022 GFR/1.73 sq M.predicted among blacks MDRD (S/P/Bld) [Vol rate/Area] mL/min/{1.73_m2} Normal >=59 [facility] Comment on above: Order Comment: Order added by Discern Expert. Result Comment: eGFR is race adjusted. AA=. Performed By: #### 2 308890, 70360676, 2371921, 9409667, 79935653, 3333279 ####[facility] [address] [place] [address] GFR/1.73 sq M.predicted among non-blacks MDRD (S/P/Bld) [Vol rate/Area] 56 mL/min/1.73 m2 Low >=59 [facility] Comment on above: Order Comment: Order added by Discern Expert. Result Comment: Product Analyst claus kidney disease could be indicated at eGFR's of less than 60 mL/min/1.73m2. Kidney failure is indicated at less than 15 mL/min/1.73m2. Performed By: #### 2 293899, 28580976, 4859266, 7436845, 57851066, 9456418 ####[facility] [address] [place] [address] Auto Diffon 08-16-2022 Basophils/100 WBC (Bld) 1.1 % Normal 0.0-2.0 [facility] Comment on above: Order Comment: Order Added by Discern Expert. Performed By: #### 2 335140, 5379101, 57162990, 34591820, 2220494, 4853203, 8692776, 70130832, 0351148, 9818284 ####[facility] [address] [place] [address] Basophils/Leukocytes Auto (Bld) [Pure # fraction] 0.1 E9/L Normal 0.0-0.2 [facility] Comment on above: Order Comment: Order Added by Frankie Expert. Performed By: #### 2 394545, 1564807, 75669854, 64352798, 1234931, 4067355, 9915344, 80218798, 6477176, 7116986 ####[facility] [address] [place] [address] Eosinophils/100 WBC (Bld) 6.9 % Normal 0.0-8.0 [facility] Comment on above: Order Comment: Order Added by Frankie Expert. Performed By: #### 2 374075, 6662552, 84173834, 42365423, 3652100, 5611344, 6381439, 36488459, 7948398, 8327568 ####[facility] [address] [place] [address] Eosinophils/Leukocyte s Auto (Bld) [Pure # fraction] 0.4 E9/L Normal 0.0-0.5 [facility] Comment on above: Order Comment: Order Added by Discern Expert. Performed By: #### 2 635648, 0839983, 77347568, 16256943, 0094485, 3848400, 9089524, 70769788, 1617973, 9130232 ####[address] [place] [address] Lymphocytes/100 WBC (Bld) 31.7 % Normal 14.0-50.0 [facility] Comment on above: Order Comment: Order Added by Frankie Expert. Performed By: #### 2 352367, 9719756, 89664666, 34164635, 0351510, 6092140, 8212629, 23023174, 8218232, 0003954 ####[address] [place] [address] Lymphocytes/Leukocyte s Auto (Bld) [Pure # fraction] 1.9 E9/L Normal 1.0-4.0 [facility] Comment on above: Order Comment: Order Added by Discern Expert. Performed By: #### 2 711526, 3672574, 40977524, 48466955, 4543247, 2142684, 0240305, 66021776, 4359260, 2635929 ####[address] [place] [address] Monocytes/100 WBC (Bld) 8.4 % Normal 4.0-14.0 [facility] Comment on above: Order Comment: Order Added by Discern Expert. Performed By: #### 2 117363, 3269328, 54079154, 22177712, 5147114, 8123108, 4930950, 55489415, 8054431, 9996493 ####[address] [address] Monocytes/Leukocytes Auto (Bld) [Pure # fraction] 0.5 E9/L Normal 0.2-1.0 [facility] Comment on above: Order Comment: Order Added by Frankie Expert. Performed By: #### 2 418691, 5021325, 33493623, 73662817, 2384093, 6281619, 8689124, 80745731, 7463997, 8539084 ####[facility] [address] [place] [address] Neutrophils/100 WBC (Bld) 51.9 % Normal 36.0-75.0 [facility] Comment on above: Order Comment: Order Added by Discern Expert. Performed By: #### 2 095022, 5288958, 19543321, 30286272, 3940720, 3361858, 9703456, 86853807, 7599452, 3104377 ####[address] [place] [address] Neutrophils/Leukocyte s Auto (Bld) [Pure # fraction] 3.0 E9/L Normal 2.0-7.5 [facility] Comment on above: Order Comment: Order Added by Discern Expert. Performed By: #### 2 698854, 4752270, 01657221, 07313679, 0393882, 3928760, 7846942, 22895362, 6079185, 1964779 ####[facility] [address] [place] [address] BMPon 08-16-2022 Anion gap [Moles/Vol] 11 mmol/L Normal 6-16 [facility] Comment on above: Performed By: #### 2 926270, 4484216, 69414991, 33395831, 0079335, 6323674, 2096996, 88721453, 5919642, 4357182 ####[facility] [address] [place] [address] Calcium [Mass/Vol] 8.2 mg/dL Low 8.9-11.1 [facility] Comment on above: Performed By: #### 2 194454, 9472364, 54307990, 61797165, 1860695, 2087160, 6205852, 78903034, 1753975, 6868516 ####[facility] [address] [place] [address] Chloride [Moles/Vol] 105 mmol/L Normal 101-111 [facility] Comment on above: Performed By: #### 2 641941, 7699674, 63945054, 07211496, 0381851, 8522264, 3556041, 62290098, 3201960, 2047057 ####[facility] [address] [place] [address] CO2 [Moles/Vol] 25 mmol/L Normal 21-31 [facility] Comment on above: Performed By: #### 2 919042, 1411368, 19999579, 83175365, 7544623, 5046443, 5888495, 40576606, 1719820, 1759876 ####[facility] [address] [place] [address] Creatinine [Mass/Vol] 1.2 mg/dL Normal 0.5-1.3 [facility] Comment on above: Performed By: #### 2 465092, 1511488, 45069521, 05251268, 4235042, 0839053, 9313226, 16216951, 5587115, 1089147 ####[facility] [address] [place] [address] Glucose [Mass/Vol] 131 mg/dL Normal 55-199 [facility] Comment on above: Result Comment: If t his glucose result represents a fasting glucose, interpretation should refer to the following reference range: 55-99 mg/dL Performed By: #### 2 290250, 9610007, 46891670, 01894329, 7271864, 9622802, 3388262, 25438632, 5026349, 6118731 ####[facility] [address] [place] [address] Potassium [Moles/Vol] 4.0 mmol/L Normal 3.5-5.3 [facility] Comment on above: Performed By: #### 2 643410, 5858359, 28946283, 24619189, 3771982, 6247468, 1089582, 47987296, 9206059, 3843155 ####[facility] [address] [place] [address] Sodium [Moles/Vol] 137 mmol/L Normal 135-145 [facility] Comment on above: Performed By: #### 2 668015, 6236012, 60736862, 47369731, 1154460, 4033505, 4774672, 11421278, 4605034, 4718212 ####[facility] [address] [place] [address] Urea nitrogen [Mass/Vol] 24 mg/dL High 5-21 [facility] Comment on above: Performed By: #### 2 568765, 7727249, 63371284, 19034459, 0872733, 7591763, 5761675, 65977088, 4866469, 0944608 ####[facility] [address] [place] [address] Urea nitrogen/Creatinine [Mass ratio] 20 No Units Normal 10-20 [facility] Comment on above: Performed By: #### 2 456938, 0773636, 13359648, 33281685, 0690487, 0853578, 9508692, 90517857, 3113315, 8231639 ####[facility] [address] [place] [address] CBC w/ Auto Diffon 3 Erythrocyte distribution width (RBC) [Ratio] 16.0 % High 10.9-14.2 [facility] Comment on above: Performed By: #### 2 980787, 3293982, 15964823, 93233442, 6699876, 8698815, 4518983, 32059747, 4142279, 8814098 ####[facility] [address] [place] [address] Hematocrit (Bld) [Volume fraction] 23.4 % Low 37.7-49.0 [facility] Comment on above: Performed By: #### 2 651973, 8690738, 79978329, 21785768, 1283524, 1498587, 6936254, 10188288, 9907398, 1887264 ####[facility] [address] [place] [address] Hemoglobin (Bld) [Mass/Vol] 7.4 g/dL Low 13.5-17.5 [facility] Comment on above: Performed By: #### 2 600626, 5019057, 22778551, 11910770, 6360379, 0582601, 0863109, 06019374, 2039537, 8221206 ####[facility] [address] [place] [address] MCH (RBC) [Entitic mass] 23.6 pg Low 27.0-34.0 [facility] Comment on above: Performed By: #### 2 352626, 5019058, 64767655, 68047675, 8056861, 5397372, 8502281, 26078452, 2251440, 4718257 ####[facility] [address] [place] [address] MCHC (RBC) [Mass/Vol] 31.6 g/dL Normal 31.4-36.0 [facility] Comment on above: Performed By: #### 2 925465, 2618016, 79269143, 26867330, 0438005, 3886757, 8936268, 37375239, 7317494, 9306062 ####[facility] [address] [place] [address] MCV (RBC) [Entitic vol] 74.6 fL Low 80.0-100.0 [facility] Comment on above: Performed By: #### 2 224372, 2895756, 04626268, 40155096, 4696487, 0376304, 4710115, 06913994, 8465741, 9920654 ####[facility] [address] [place] [address] Platelet mean volume (Bld) [Entitic vol] 8.2 fL Normal 6.4-10.8 [facility] Comment on above: Performed By: #### 2 396454, 4448036, 05196719, 05248425, 4294668, 0340124, 2184263, 73393839, 5120506, 1166797 ####[address] [address] Platelets (Bld) [#/Vol] 291.0 E9/L Normal 150.0-500.0 [facility] Comment on above: Performed By: #### 2 432757, 4372768, 88498678, 95281650, 1702097, 0314223, 0136885, 20554539, 8102662, 7988378 ####[address] [place] [address] RBC (Bld) [#/Vol] 3.1 E12/L Low 4.3-5.9 [facility] Comment on above: Performed By: #### 2 586874, 3958324, 54424562, 90891751, 9908360, 2649628, 3308076, 24903771, 2233433, 8032969 ####[facility] [address] [place] [address] WBC corrected for nucl RBC Auto (Bld) [#/Vol] 5.9 E9/L Normal 4.0-11.0 [facility] Comment on above: Performed By: #### 2 757240, 6723484, 35760481, 01026345, 4322248, 1565830, 5037785, 74021627, 3646633, 7287605 ####[facility] [address] [place] [address] CHEMISTRYOrdered By: SYSTEM SYSTEM on 08-16-2022 Vancomycin [...] .73 m2 [facility] Chem S Glucose [Mass/Vol] 131 mg/dL Normal [...] mg/mg Normal 10 - 20 [facility] Remisol Capillary Glucose POCon Glucose [Mass/Vol] 243 mg/dL High 55-99 [facility] Comment on above: Result Comment: Mary COLLAZO Performed By: #### 2 15206276 ####[facility] [address] [place] [address] Glucose [Mass/Vol] 154 mg/dL High 55-99 [facility] Comment on above: Result Comment: Mary COLLAZO Performed By: #### 2 49672260 ####[facility] [address] [place] [address] Glucose [Mass/Vol] 172 mg/dL High 55-99 [facility] Comment on above: Result Comment: Mary COLLAZO Performed By: #### 2 63831493 ####[facility] [address] [place] [address] Glucose [Mass/Vol] 118 mg/dL High 55-99 [facility] Comment on above: Result Comment: Mary COLLAZO Performed By: #### 2 26135398 ####[facility] [address] [place] [address] HEMATOLOGYOrdered By: SYSTEM SYSTEM on 08-16-2022 Basophils/100 [...] 74.6 fL Low 80.0 - 100.0 fL [facility] HemeAutoSS Microcytes Ql (Bld) Present (08/16/22 6:16 AM) Normal [facility] HemeManSS Morphology Errol (Bld) [Interp] See Morphology (08/16/22 6:16 AM) Normal [facility] HemeManSS Platelet mean volume [...] 08-16-2022 Iron [Mass/Vol] 25 microgram/dL Low 35-153 [facility] Comment on above: Order Comment: Iron order added by Discern Rule: gl_[facility]_add_iron_trans . Performed By: #### 2 308082, 9008090, 07351502, 62921402, 1663361, 7016378, 7797795, 67519090, 1553097, 4705553 ####[facility] [address] [place] [address] Iron Saturationon 08-16-2022 Iron binding capacity [Mass/Vol] 244 microgram/dL Low 250-400 [facility] Comment on above: Performed By: #### 2 875780, 0118653, 57258370, 37671584, 6300484, 2890964, 0844390, 68098840, 7459223, 3776018 ####[facility] [address] [place] [address] Iron saturation [Mass fraction] 10 % Low 20-50 [facility] Comment on above: Performed By: #### 2 [id number], [id number], [id number], [id number], 3464750, 8341119, 0659234, 81224295, 4763970, 8232680 ####[facility] [address] [place] [address] Monitor Recordon 08-16-2022 Monitor Record [id number]:127 Normal [facility] Monitor Record [id number]:127 Normal [facility] Monitor Record [id number]#[id number]:127 Normal [facility] Morphon 08-16-2022 Hypochromia Auto Ql (Bld) Present Normal [facility] Comment on above: Order Comment: Order Added by Discern Expert. Performed By: #### 2 207494, 8736935, 01657726, 00329960, 9455385, 8386742, 2368660, 49390011, 0027948, 3780916 ####[address] [address] Microcytes Ql (Bld) Present Normal [facility] Comment on above: Order Comment: Order Added by Discern Expert. Performed By: #### 2 155592, 1805738, 29656162, 90683782, 5837478, 4065103, 7822928, 32578229, 0578085, 1205626 ####[address] [place] [address] Morphology Errol (Bld) [Interp] See Morphology Normal [facility] Comment on above: Order Comment: Order Added by Discern Expert. Performed By: #### 2 321179, 5204464, 10606029, 61164560, 9488518, 7779490, 2436520, 95480020, 5434688, 0963386 ####[address] [place] [address] Progress Note-Physicianon Progress Note-Physician Normal [facility] Comment on above: Result Comment: Elec tronically Signed By: Geovanna GILBERT, Chaitanya Rick\.br\Date and Time Signed: 08/16/22 15:09 EDT TSH With T4fr Reflexon 08-16 TSH Qn 4.35 m[IU]/L Normal 0.34-5.60 [facility] Comment on above: Performed By: #### 2 619326, 0533465, 45913678, 83116209, 0642721, 4737170, 6942289, 42060575, 0865639, 1751721 ####[facility] [address] [place] [address] Transferrinon 08-16-2022 Transferrin [Mass/Vol] 175 mg/dL Low 200-370 [facility] Comment on above: Order Comment: Trans melissa order added by Discern Rule: gl_ftmc_add_iron_trans . Performed By: #### 2 676161, 0683517, 80613933, 85250084, 2373219, 1961338, 1491285, 54525600, 3067726, 5137510 ####[facility] [address] [place] [address] Vanco Peakon 08-16-2022 VANCOMYCIN 33 microgram/mL Normal 20-40 [facility] Comment on above: Order Comment: pleas e draw one hour after vancomycin infusion Performed By: #### 2 192955 ####[facility] [address] [place] [address] eGFRon 08-16-2022 GFR/1.73 sq M.predicted among blacks MDRD (S/P/Bld) [Vol rate/Area] mL/min/{1.73_m2} Normal >=59 [facility] Comment on above: Order Comment: Order added by Discern Expert. Result Comment: eGFR is race adjusted. AA=. Performed By: #### 2 378609, 3148469, 73228766, 16756797, 6015694, 9921360, 9278080, 86132857, 1967565, 6768324 ####[facility] [address] [place] [address] GFR/1.73 sq M.predicted among non-blacks MDRD (S/P/Bld) [Vol rate/Area] mL/min/{1.73_m2} Normal >=59 [facility] Comment on above: Order Comment: Order added by Discern Expert. Result Comment: Product Analyst claus kidney disease could be indicated at eGFR's of less than 60 mL/min/1.73m2. Kidney failure is indicated at less than 15 mL/min/1.73m2. Performed By: #### 2 960054, 2626010, 06259267, 41266036, 9936093, 1464557, 5144000, 67916765, 9735053, 3016508 ####[facility] [address] [place] [address] Auto Diffon 08-15-2022 Basophils/100 WBC (Bld) 0.8 % Normal 0.0-2.0 [facility] Comment on above: Order Comment: Order Added by Frankie Expert. Performed By: #### 1 7073552, 6881059, 32006698, 7430986, 7117188, 0934582, 500226354, 0924547, 9720754 ####[facility] [address] [place] [address] Basophils/Leukocytes Auto (Bld) [Pure # fraction] 0.1 E9/L Normal 0.0-0.2 [facility] Comment on above: Order Comment: Order Added by Discern Expert. Performed By: #### 1 1762705, 0842468, 30089603, 6984076, 3623066, 6969608, 529020637, 3617524, 0558942 ####[facility] [address] [place] [address] Eosinophils/100 WBC (Bld) 5.1 % Normal 0.0-8.0 [facility] Comment on above: Order Comment: Order Added by Discern Expert. Performed By: #### 1 0869378, 3533237, 05553831, 0662053, 8722042, 5754870, 261911662, 9410113, 8366327 ####[facility] [address] [place] [address] Eosinophils/Leukocyte s Auto (Bld) [Pure # fraction] 0.3 E9/L Normal 0.0-0.5 [facility] Comment on above: Order Comment: Order Added by Discern Expert. Performed By: #### 1 7066743, 7485535, 54852808, 2939183, 7506108, 3308311, 046794312, 2649044, 0677102 ####[address] [place] [address] Lymphocytes/100 WBC (Bld) 23.3 % Normal 14.0-50.0 [facility] Comment on above: Order Comment: Order Added by Discern Expert. Performed By: #### 1 5276943, 8048950, 25741829, 9739951, 3343182, 7857283, 210240959, 7390470, 9051082 ####[address] [address] Lymphocytes/Leukocyte s Auto (Bld) [Pure # fraction] 1.6 E9/L Normal 1.0-4.0 [facility] Comment on above: Order Comment: Order Added by Discern Expert. Performed By: #### 1 8378849, 9756119, 55939818, 7663323, 2096855, 8308097, 080270971, 1140221, 8293273 ####[address] [place] [address] Monocytes/100 WBC (Bld) 8.4 % Normal 4.0-14.0 [facility] Comment on above: Order Comment: Order Added by Discern Expert. Performed By: #### 1 8302807, 6809922, 33041996, 1114750, 5848084, 3232718, 888428972, 2989230, 5813835 ####[address] [place] [address] Monocytes/Leukocytes Auto (Bld) [Pure # fraction] 0.6 E9/L Normal 0.2-1.0 [facility] Comment on above: Order Comment: Order Added by Discern Expert. Performed By: #### 1 4626009, 2856862, 77560883, 6581594, 5043718, 5067999, 474074398, 6835058, 5574392 ####[facility] [address] [place] [address] Neutrophils/100 WBC (Bld) 62.4 % Normal 36.0-75.0 [facility] Comment on above: Order Comment: Order Added by Discern Expert. Performed By: #### 1 8549197, 6923461, 20269102, 9468574, 4739307, 3515768, 040970616, 2700330, 2291647 ####[facility] [address] [place] [address] Neutrophils/Leukocyte s Auto (Bld) [Pure # fraction] 4.2 E9/L Normal 2.0-7.5 [facility] Comment on above: Order Comment: Order Added by Discern Expert. Performed By: #### 1 3109466, 1393230, 41815822, 7271195, 7391517, 6446320, 662644403, 4412443, 1904076 ####[facility] [address] [place] [address] BMPon 08-15-2022 Anion gap [Moles/Vol] 10 mmol/L Normal 6-16 [facility] Comment on above: Performed By: #### 1 9086597, 1925143, 02242561, 3328011, 2367954, 8041162, 736281291, 0430639, 4002868 ####[facility] [address] [place] [address] Calcium [Mass/Vol] 8.2 mg/dL Low 8.9-11.1 [facility] Comment on above: Performed By: #### 1 9340162, 7006026, 09058410, 9926598, 2246095, 3467633, 974665809, 7485122, 0295259 ####[facility] [address] [place] [address] Chloride [Moles/Vol] 104 mmol/L Normal 101-111 [facility] Comment on above: Performed By: #### 1 1554847, 5658843, 40845604, 5083665, 4800724, 8590943, 376802681, 6023978, 8867664 ####[facility] [address] [place] [address] CO2 [Moles/Vol] 24 mmol/L Normal 21-31 [facility] Comment on above: Performed By: #### 1 6516372, 1271962, 10687920, 6698858, 0351130, 8456140, 568462229, 4837653, 9211223 ####[facility] [address] [place] [address] Creatinine [Mass/Vol] 0.9 mg/dL Normal 0.5-1.3 [facility] Comment on above: Performed By: #### 1 7622690, 4497415, 22056766, 4544524, 2729507, 8712496, 999236999, 1882667, 7924563 ####[facility] [address] [place] [address] Glucose [Mass/Vol] 161 mg/dL Normal 55-199 [facility] Comment on above: Result Comment: If t his glucose result represents a fasting glucose, interpretation should refer to the following reference range: 55-99 mg/dL Performed By: #### 1 5735273, 8193040, 12794322, 7980277, 7137709, 3046299, 290355617, 6260202, 4124538 ####[facility] [address] [place] [address] Potassium [Moles/Vol] 4.3 mmol/L Normal 3.5-5.3 [facility] Comment on above: Performed By: #### 1 9051439, 6758773, 37791027, 3470729, 5320310, 2765281, 067118914, 7999668, 8429206 ####[facility] [address] [place] [address] Sodium [Moles/Vol] 134 mmol/L Low 135-145 [facility] Comment on above: Performed By: #### 1 4496434, 9034036, 01737903, 4000598, 9281090, 4242262, 536440950, 8155622, 9281136 ####[facility] [address] [place] [address] Urea nitrogen [Mass/Vol] 19 mg/dL Normal 5-21 [facility] Comment on above: Performed By: #### 1 3595643, 3646221, 35067179, 8521825, 0636531, 6384714, 633454957, 8890137, 9954034 ####[facility] [address] [place] [address] Urea nitrogen/Creatinine [Mass ratio] 21 No Units High 10-20 [facility] Comment on above: Performed By: #### 1 5462207, 7526150, 63479581, 6303583, 7345279, 7783792, 147252223, 6802553, 0900540 ####[facility] [address] [place] [address] CBC w/ Auto Diffon 3 Erythrocyte distribution width (RBC) [Ratio] 16.2 % High 10.9-14.2 [facility] Comment on above: Performed By: #### 1 1739719, 0559831, 60853065, 4742711, 2496699, 3241340, 112828678, 6302606, 1811914 ####[address] [place] [address] Hematocrit (Bld) [Volume fraction] 24.8 % Low 37.7-49.0 [facility] Comment on above: Performed By: #### 1 9788202, 8705069, 34596999, 8839016, 4099242, 3195210, 863782165, 8540589, 1667321 ####[facility] [address] [place] [address] Hemoglobin (Bld) [Mass/Vol] 7.8 g/dL Low 13.5-17.5 [facility] Comment on above: Performed By: #### 1 7699731, 9120130, 28391239, 9707608, 5940667, 2745676, 384368192, 1076656, 0060062 ####[address] [place] [address] MCH (RBC) [Entitic mass] 23.5 pg Low 27.0-34.0 [facility] Comment on above: Performed By: #### 1 9811556, 6051955, 09081204, 7260193, 4899917, 5849101, 512528208, 3499524, 1574624 ####[address] [address] MCHC (RBC) [Mass/Vol] 31.3 g/dL Low 31.4-36.0 [facility] Comment on above: Performed By: #### 1 6053880, 0176629, 88947843, 1793816, 9739881, 1607895, 481327362, 0481753, 4918325 ####[address] [address] MCV (RBC) [Entitic vol] 74.9 fL Low 80.0-100.0 [facility] Comment on above: Performed By: #### 1 9633550, 8384072, 36311763, 3743950, 0587956, 1722132, 940594848, 4107286, 8597084 ####[address] [address] Platelet mean volume (Bld) [Entitic vol] 8.1 fL Normal 6.4-10.8 [facility] Comment on above: Performed By: #### 1 9468275, 1144578, 66781391, 5752422, 0146201, 3589981, 902198185, 5238025, 4450010 ####[address] [address] Platelets (Bld) [#/Vol] 286.0 E9/L Normal 150.0-500.0 [facility] Comment on above: Performed By: #### 1 3713542, 2669392, 98028457, 2422896, 3227673, 1884551, 404022241, 6449069, 8481704 ####[facility] [address] [place] [address] RBC (Bld) [#/Vol] 3.3 E12/L Low 4.3-5.9 [facility] Comment on above: Performed By: #### 1 2311670, 8227698, 46901024, 8263651, 8621994, 2796057, 415618034, 4005774, 5135440 ####[facility] [address] [place] [address] WBC corrected for nucl RBC Auto (Bld) [#/Vol] 6.8 E9/L Normal 4.0-11.0 [facility] Comment on above: Performed By: #### 1 1176330, 5207663, 88919978, 0619262, 0332944, 4879875, 108013699, 8650815, 5673733 ####[facility] [address] [place] [address] CHEMISTRYOrdered By: SYSTEM SYSTEM on 08-15-2022 Vancomycin [...] 08-15-2022 CTA Abd Aorto-bilat/ iliofemoral runoff Normal [facility] Capillary Glucose POCon Glucose [Mass/Vol] 191 mg/dL High 55-99 [facility] Comment on above: Result Comment: Mary COLLAZO Performed By: #### 2 59554850 ####[facility] [address] [place] [address] Glucose [Mass/Vol] 168 mg/dL High 55-99 [facility] Comment on above: Result Comment: Mary flores RN/ Performed By: #### 2 28405470 ####[facility] [address] [place] [address] Glucose [Mass/Vol] 164 mg/dL High 55-99 [facility] Comment on above: Result Comment: Mary flores RN/ Performed By: #### 2 40894064 ####[facility] [address] [place] [address] Glucose [Mass/Vol] 135 mg/dL High 55-99 [facility] Comment on above: Result Comment: Mary flores RN/ Performed By: #### 2 87670722 ####[facility] [address] [place] [address] Coding Queryon 08-15-2022 Coding Query Normal [facility] Coding Query Normal [facility] Coding Summary.on 08-15-2022 Coding Summary. Normal [facility] Consent for Anesthesiaon Consent for Anesthesia [id number]#1.00CD:127 Normal [facility] Consultation Noteon 08-16-19 23 Consultation Note Normal [facility] Comment on above: Result Comment: Elec tronically Signed By: Ronaldo Arcos M.D\Date and Time Signed: 08/15/22 09:42 EDT Hemoglobinon 08-15-2022 Hemoglobin (Bld) [Mass/Vol] 8.3 g/dL Low 13.5-17.5 [facility] Comment on above: Performed By: #### 2 141067 ####[facility] [address] [place] [address] Interdisciplinary Note - Virgil e Manageron 08-15-2022 Interdisciplinary Note - Economist Research Assistant Normal [facility] Comment on above: Result Comment: Elec tronically Signed By: Franci Peace.br\Date and Time Signed: 08/15/22 13:07 EDT Interdisciplinary Note - Juan n 08-15-2022 Interdisciplinary Note - OT Normal [facility] Interdisciplinary Note - PTo n 08-15-2022 Interdisciplinary Note - PT [facility] IntraOperative Documentson 0 08-15-2022 IntraOperative Documents [id number]#1.00CD:127 [facility] Magnesiumon 08-15-2022 Magnesium [Mass/Vol] 2.1 mg/dL Normal 1.3-2.4 [facility] Comment on above: Performed By: #### 1 6878574, 8255304, 41883816, 6866809, 5331045, 4092093, 711155981, 4614785, 5660306 ####[facility] [address] [place] [address] Main OR Intraoperative Recor don 08-15-2022 Main OR Intraoperative Record [facility] Monitor Recordon 08-15-2022 Monitor Record [id number]#1.00CD:127 Normal [facility] Monitor Record [id number]#1.00CD:127 [facility] Monitor Record [id number]#1.00CD:127 [facility] Monitor Record [id number]#1.00CD:127 [facility] Morphon 08-15-2022 Hypochromia Auto Ql (Bld) Present [facility] Comment on above: Order Comment: Order Added by Discern Expert. Performed By: #### 1 1601551, 2334862, 73874055, 1315170, 0331727, 2575654, 484639074, 4912107, 9947150 ####[facility] [address] [place] [address] Microcytes Ql (Bld) Present Normal [facility] Comment on above: Order Comment: Order Added by Discern Expert. Performed By: #### 1 5465257, 6256945, 98356704, 0004320, 3365686, 9026250, 803434056, 3795393, 8491571 ####[facility] [address] [place] [address] Morphology Errol (Bld) [Interp] See Morphology Normal [facility] Comment on above: Order Comment: Order Added by Discern Expert. Performed By: #### 1 1183189, 6642471, 90613481, 6089391, 0224275, 1101818, 482509748, 6017909, 9036342 ####[facility] [address] [place] [address] Phosphoruson 08-15-2022 Phosphate [Mass/Vol] 3.1 mg/dL Normal 1.9-4.6 [facility] Comment on above: Performed By: #### 1 7030252, 7178181, 52846684, 1555808, 1681100, 7068746, 773743492, 5578436, 1470795 ####[facility] [address] [place] [address] Progress Note - Pharmacyon 0 08-15-2022 Progress Note - Pharmacy Normal [facility] Progress Note - Woundon 04-0 Progress Note - Wound [id number]#2.00CD:127 Normal [facility] Progress Note-Physicianon Progress Note-Physician Normal [facility] Comment on above: Result Comment: Elec tronically Signed By: Geovanna GILBERT, Chaitanya Rick\.br\Date and Time Signed: 08/15/22 13:40 EDT Aleksandar Peakon 08-15-2022 VANCOMYCIN 40 microgram/mL Normal 20-40 [facility] Comment on above: Order Comment: pleas e draw one hour after infusionPer MIKE huertas supposed to start @0300 and takes over 90 mins to infuse. Will call lab to let us know when started to ensure accurate draw time...[facility] 08/15/2022 02:05:00 EDTRN called aleksandar started @0334 and will infuse for 90 mins. Draw peak @0604...[facility] 08/15/2022 03:52:05 EDT Performed By: #### 1 2927067, 4979679, 93279393, 2401002, 2125750, 0879553, 215413433, 0105558, 9930990 ####[facility] [address] [place] [address] Vanco Troughon 08-15-2022 VANCOMYCIN 18 microgram/mL Normal 10-20 [facility] Comment on above: Order Comment: joshua crowley draw one hour prior to infusion Performed By: #### 2 213092 ####[facility] [address] [place] [address] Vitamin D 25 Hydroxyon 08-15 25-hydroxyvitamin D3 [Mass/Vol] 12.8 ng/mL Low 30.0-100.0 [facility] Comment on above: Result Comment: Vit ang D deficiency has been defined as a level of serum 25-OH vitamin D less than 20 ng/mL (1,2) by the [place] of [employer] and an Endocrine Society practice guideline. The Endocrine Society further defined vitamin D insufficiency as a level between 21 and 29 ng/mL (2). 1. IOM ([place] of [employer]). 2010. Dietary reference intakes for calcium and D. [place]: The National Academies Press. 2. Amber MF, Kathi NC, Tanner GOMEZ, et al. Evaluation, treatment, and prevention of vitamin D deficiency: an Endocrine Society clinical practice guideline. JCEM. 2011 Nov; 96 (7):1911-30. Performed By: #### 1 9104322, 9031843, 96667394, 2197257, 4480018, 7018149, 515787464, 4826213, 6787204 ####[facility] [address] [place] [address] XR Foot 3+ Views Righton XR Foot 3+ Views Right Normal [facility] eGFRon 08-15-2022 GFR/1.73 sq M.predicted among blacks MDRD (S/P/Bld) [Vol rate/Area] mL/min/{1.73_m2} Normal >=59 [facility] Comment on above: Order Comment: Order added by Discern Expert. Result Comment: eGFR is race adjusted. AA=. Performed By: #### 1 8699218, 5281527, 81393725, 7008846, 4730190, 2808801, 302195672, 0138640, 2030505 ####[facility] [address] [place] [address] GFR/1.73 sq M.predicted among non-blacks MDRD (S/P/Bld) [Vol rate/Area] mL/min/{1.73_m2} Normal >=59 [facility] Comment on above: Order Comment: Order added by Discern Expert. Result Comment: Product Analyst cluas kidney disease could be indicated at eGFR's of less than 60 mL/min/1.73m2. Kidney failure is indicated at less than 15 mL/min/1.73m2. Performed By: #### 1 1590616, 6575699, 65855187, 9304441, 6532071, 2177709, 900399995, 2048957, 2260302 ####[facility] [address] [place] [address] CBC w/Indiceson 08-14-2022 Erythrocyte distribution width (RBC) [Ratio] 16.1 % High 10.9-14.2 [facility] Comment on above: Order Comment: pt is a hard stick, unable to get labs. Will have day shift try @ 0530. [id number] 08/14/2022 05:21:38 EDT Performed By: #### 2 797864, 3095994, 63199135 ####[facility] [address] [place] [address] Hematocrit (Bld) [Volume fraction] 28.7 % Low 37.7-49.0 [facility] Comment on above: Order Comment: pt is a hard stick, unable to get labs. Will have day shift try @ 0530. [id number] 08/14/2022 05:21:38 EDT Performed By: #### 2 203027, 9875943, 06587185 ####[facility] [address] [place] [address] Hemoglobin (Bld) [Mass/Vol] 8.9 g/dL Low 13.5-17.5 [facility] Comment on above: Order Comment: pt is a hard stick, unable to get labs. Will have day shift try @ 0530. [id number] 08/14/2022 05:21:38 EDT Performed By: #### 2 029328, 4922132, 36969467 ####[facility] [address] [place] [address] MCH (RBC) [Entitic mass] 23.2 pg Low 27.0-34.0 [facility] Comment on above: Order Comment: pt is a hard stick, unable to get labs. Will have day shift try @ 0530. [id number] 08/14/2022 05:21:38 EDT Performed By: #### 2 991855, 5610307, 80115551 ####[facility] [address] [place] [address] MCHC (RBC) [Mass/Vol] 31.2 g/dL Low 31.4-36.0 [facility] Comment on above: Order Comment: pt is a hard stick, unable to get labs. Will have day shift try @ 0530. [id number] 08/14/2022 05:21:38 EDT Performed By: #### 2 377581, 4476559, 28976715 ####[facility] [address] [place] [address] MCV (RBC) [Entitic vol] 74.4 fL Low 80.0-100.0 [facility] Comment on above: Order Comment: pt is a hard stick, unable to get labs. Will have day shift try @ 0530. [id number] 08/14/2022 05:21:38 EDT Performed By: #### 2 497866, 6357602, 07742516 ####[facility] [address] [place] [address] Platelet mean volume (Bld) [Entitic vol] 8.6 fL Normal 6.4-10.8 [facility] Comment on above: Order Comment: pt is a hard stick, unable to get labs. Will have day shift try @ 0530. [id number] 08/14/2022 05:21:38 EDT Performed By: #### 2 564552, 2536202, 78500927 ####[facility] [address] [place] [address] Platelets (Bld) [#/Vol] 268.0 E9/L Normal 150.0-500.0 [facility] Comment on above: Order Comment: pt is a hard stick, unable to get labs. Will have day shift try @ 0530. [id number] 08/14/2022 05:21:38 EDT Performed By: #### 2 441673, 4618635, 86359358 ####[facility] [address] [place] [address] RBC (Bld) [#/Vol] 3.8 E12/L Low 4.3-5.9 [facility] Comment on above: Order Comment: pt is a hard stick, unable to get labs. Will have day shift try @ 0530. [id number] 08/14/2022 05:21:38 EDT Performed By: #### 2 664166, 4118685, 84323693 ####[facility] [address] [place] [address] WBC corrected for nucl RBC Auto (Bld) [#/Vol] 6.6 E9/L Normal 4.0-11.0 [facility] Comment on above: Order Comment: pt is a hard stick, unable to get labs. Will have day shift try @ 0530. [facility] 08/14/2022 05:21:38 EDT Performed By: #### 2 043528, 1735231, 16726567 ####[address] [place] [address] CEFEPIME:SUSC:PT:ISOLATE:ORD QN:MICOrdered By: Margret Ambriz on 08-14-2022 Cefepime ERYN [Susc] Escherichia coli ESB L isolated from broth media only. Result called to Dr. Harris by [facility] and results read back for confirmation on 08/18/2022 09:28:42 [facility] Capillary Glucose POCon 04-0 Glucose [Mass/Vol] 188 mg/dL High 55-99 [facility] Comment on above: Result Comment: Katty brooks Meter Performed By: #### 2 04611455 ####[facility] [address] [place] [address] Glucose [Mass/Vol] 138 mg/dL High 55-99 [facility] Comment on above: Performed By: #### 2 28972577 ####[facility] [address] [place] [address] Cefepime ERYN [Susc]Ordered B y: Margret Ambriz on 08-14-2022 Escherichia coli ESBL Escherichia coli ESBL [facility] GS 1+ White Blood Cells Occasional Gram Positive Cocci [facility] Consent for Procedure/Surger yon 08-14-2022 Consent for Procedure/Surgery [id number]#1.00CD:127 [facility] Consent for Procedure/Surgery [id number]#1.00CD:127 [facility] Comment on above: Other Comment: NOT I T Consultation Noteon 08-15-19 23 Consultation Note [facility] Comment on above: Result Comment: Elec tronically Signed By: Ramiro Epperson DPM\.br\Date and Time Signed: 08/14/22 11:21 EDT Insurance Correspondence Off iceon 08-14-2022 Insurance Correspondence Office [id number]#1.00CD:127 [facility] Interdisciplinary Note - Virgil e Manageron 08-14-2022 Interdisciplinary Note - Economist Research Assistant [facility] Comment on above: Result Comment: Elec tronically Signed By: Valentina Peoples\.br\Date and Time Signed: 08/14/22 09:42 EDT Main OR PACU I Recordon Main OR PACU I Record Normal [facility] Message from Medicareon Message from Medicare [id number]#1.00CD:127 Normal [facility] Message from Medicare [id number]#1.00CD:127 Normal [facility] Monitor Recordon 08-14-2022 Monitor Record [id number]#1.00CD:127 Normal [facility] Monitor Record [id number]#1.00CD:127 Normal [facility] Monitor Record [id number]#1.00CD:127 Normal [facility] Monitor Record [id number]#1.00CD:127 Normal [facility] Morphon 08-14-2022 Hypochromia Auto Ql (Bld) Present Normal [facility] Comment on above: Order Comment: Order Added by Discern Expert. Performed By: #### 2 775418, 7616331, 00300842 ####[facility] [address] [place] [address] Microcytes Ql (Bld) Present Normal [facility] Comment on above: Order Comment: Order Added by Discern Expert. Performed By: #### 2 862370, 6999806, [id number] ####[facility] [address] [place] [address] Morphology Errol (Bld) [Interp] See Morphology Normal [facility] Comment on above: Order Comment: Order Added by Discern Expert. Performed By: #### 2 307244, 0096491, 57913093 ####[facility] [address] [place] [address] Path. Reviewon 08-14-2022 Path Review Anemia with mild polychromasia. Invalid Interpretation Code [facility] Comment on above: Order Comment: Order Added by Discern Expert. Performed By: #### 1 2848842, 9569483, 99788608, 28585400, 5914950, 3501401 ####[facility] [address] [place] [address] Progress Note-Physicianon Progress Note-Physician Normal [facility] Comment on above: Result Comment: Elec tronically Signed By: Geovanna GILBERT, Chaitanya Rick\.br\Date and Time Signed: 08/14/22 18:26 EDT Progress Note-Physician Normal [facility] Comment on above: Result Comment: Elec tronically Signed By: Alex Goldstein MD\.br\Date and Time Signed: 08/14/22 13:14 EDT Progress Note-Physician Normal [facility] Comment on above: Result Comment: Elec tronically Signed By: Ramiro Epperson DPM\.br\Date and Time Signed: 08/14/22 12:53 EDT Progress Note-Physician Normal [facility] Comment on above: Result Comment: Elec tronically Signed By: Alex Goldstein MD\.br\Date and Time Signed: 08/14/22 10:57 EDT Sodiumon 08-14-2022 Sodium [Moles/Vol] 136 mmol/L Normal 135-145 [facility] Comment on above: Performed By: #### 2 395831, 9153282, 71015131 ####[facility] [address] [place] [address] ABO/Rhon 08-13-2022 ABO/Rh Positive Invalid Interpretation Code [facility] Comment on above: Performed By: #### 1 0198217, 04254653, 6814335, 80258868 ####[facility] [address] [place] [address] ABO/Rh History Checkon 08-13 ABO/Rh History Check Type verified by second s Normal [facility] Comment on above: Performed By: #### 1 8268334, 60739996, 0274956, 16937115 ####[address] [place] [address] ABO/Rh Retypeon 08-13-2022 ABO/Rh Retype Interp Positive Invalid Interpretation Code [facility] Comment on above: Performed By: #### 1 1468256 ####[address] [address] ABSCon 08-13-2022 ABSC Gel Interp Negative Normal [facility] Comment on above: Performed By: #### 1 9136612, 62781442, 6985582, 07243573 ####[address] [address] Auto Diffon 08-13-2022 Basophils/100 WBC (Bld) 0.5 % Normal 0.0-2.0 [facility] Comment on above: Order Comment: Order Added by Discern Expert. Performed By: #### 1 7083115, 7626744, 81670296, 33193930, 1567314, 6967617 ####[address] [address] Basophils/Leukocytes Auto (Bld) [Pure # fraction] 0.0 E9/L Normal 0.0-0.2 [facility] Comment on above: Order Comment: Order Added by Discern Expert. Performed By: #### 1 4883731, 8390144, 19242632, 40297689, 7645464, 9314022 ####[address] [place] [address] Eosinophils/100 WBC (Bld) 1.3 % Normal 0.0-8.0 [facility] Comment on above: Order Comment: Order Added by Discern Expert. Performed By: #### 1 8027240, 0976300, 72654644, 51577921, 6207688, 3856612 ####[address] [place] [address] Eosinophils/Leukocyte s Auto (Bld) [Pure # fraction] 0.1 E9/L Normal 0.0-0.5 [facility] Comment on above: Order Comment: Order Added by Discern Expert. Performed By: #### 1 3998013, 9455973, 79047937, 34493326, 4271316, 8438965 ####[facility] [address] [place] [address] Lymphocytes/100 WBC (Bld) 16.6 % Normal 14.0-50.0 [facility] Comment on above: Order Comment: Order Added by Discern Expert. Performed By: #### 1 4693979, 4434018, 69809364, 67535025, 4130793, 6626265 ####[address] [place] [address] Lymphocytes/Leukocyte s Auto (Bld) [Pure # fraction] 1.4 E9/L Normal 1.0-4.0 [facility] Comment on above: Order Comment: Order Added by Frankie Expert. Performed By: #### 1 3391123, 6902578, 52091771, 25209338, 1506938, 4449050 ####[address] [place] [address] Monocytes/100 WBC (Bld) 13.5 % Normal 4.0-14.0 [facility] Comment on above: Order Comment: Order Added by Frankie Expert. Performed By: #### 1 1092008, 8326188, 40477294, 27730668, 3699942, 3509561 ####[address] [place] [address] Monocytes/Leukocytes Auto (Bld) [Pure # fraction] 1.1 E9/L High 0.2-1.0 [facility] Comment on above: Order Comment: Order Added by Frankie Expert. Performed By: #### 1 3228333, 1698261, 14341721, 65845831, 4360303, 7450224 ####[address] [place] [address] Neutrophils/100 WBC (Bld) 68.1 % Normal 36.0-75.0 [facility] Comment on above: Order Comment: Order Added by Discern Expert. Performed By: #### 1 5251632, 0064300, 89785316, 45807451, 2727554, 8302172 ####[facility] [address] [place] [address] Neutrophils/Leukocyte s Auto (Bld) [Pure # fraction] 5.7 E9/L Normal 2.0-7.5 [facility] Comment on above: Order Comment: Order Added by Discern Expert. Performed By: #### 1 6918903, 1363660, 94883233, 59908615, 5059559, 8492856 ####[facility] [address] [place] [address] BLOOD BANKOrdered By: Alecia Miranda on 08-13-2022 ABO/Rh Retype Interp Positive Invalid Interpretation Code [facility] Subsection ABO/Rh Interp Positive Invalid Interpretation Code [facility] Subsection ABSC Gel Interp Negative (08/13/22 1:25 PM) Normal [facility] Subsection BMPon 08-13-2022 Creatinine [Mass/Vol] 1.0 mg/dL Normal 0.5-1.3 [facility] Comment on above: Order Comment: pt in ultrasound Performed By: #### 1 7086423, 7488073, 80909985, 33451980, 1511210, 9569975 ####[facility] [address] [place] [address] Urea nitrogen [Mass/Vol] 31 mg/dL High 5-21 [facility] Comment on above: Order Comment: pt in ultrasound Performed By: #### 1 2916565, 7436434, 53618410, 04930885, 8983913, 1613805 ####[facility] [address] [place] [address] Urea nitrogen/Creatinine [Mass ratio] 31 No Units High 10-20 [facility] Comment on above: Order Comment: pt in ultrasound Performed By: #### 1 7787111, 6044072, 97703744, 44417236, 5424798, 5940331 ####[facility] [address] [place] [address] Anion gap [Moles/Vol] 11 mmol/L Normal 6-16 [facility] Comment on above: Order Comment: pt in ultrasound Performed By: #### 1 9461582, 3013499, 31630384, 85923946, 5803994, 7964654 ####[facility] [address] [place] [address] Calcium [Mass/Vol] 8.5 mg/dL Low 8.9-11.1 [facility] Comment on above: Order Comment: pt in ultrasound Performed By: #### 1 2958463, 3469249, 24915316, 42928388, 1499696, 0331364 ####[facility] [address] [place] [address] Chloride [Moles/Vol] 96 mmol/L Low 101-111 [facility] Comment on above: Order Comment: pt in ultrasound Performed By: #### 1 9800163, 0695245, 14611323, 93030434, 9400973, 5726311 ####[facility] [address] [place] [address] CO2 [Moles/Vol] 27 mmol/L Normal 21-31 [facility] Comment on above: Order Comment: pt in ultrasound Performed By: #### 1 3612529, 4815666, 93755272, 47130069, 3745359, 2655105 ####[facility] [address] [place] [address] Glucose [Mass/Vol] 174 mg/dL Normal 55-199 [facility] Comment on above: Order Comment: pt in ultrasound Result Comment: If t his glucose result represents a fasting glucose, interpretation should refer to the following reference range: 55-99 mg/dL Performed By: #### 1 2516306, 2380547, 16130256, 92313126, 1440288, 2987874 ####[facility] [address] [place] [address] Potassium [Moles/Vol] 3.8 mmol/L Normal 3.5-5.3 [facility] Comment on above: Order Comment: pt in ultrasound Performed By: #### 1 6155387, 1325374, 01004454, 81588693, 8175374, 3099238 ####[facility] [address] [place] [address] Sodium [Moles/Vol] 130 mmol/L Low 135-145 [facility] Comment on above: Order Comment: pt in ultrasound Performed By: #### 1 4279441, 6824777, 60659597, 52694073, 1987436, 0362934 ####[address] [place] [address] Blood Bank ID#on 08-13-2022 BBID# [id number] Invalid Interpretation Code [facility] Comment on above: Performed By: #### 1 6111792, 75117149, 4208269, 46735417 ####[address] [place] [address] CBC w/ Auto Diffon Erythrocyte distribution width (RBC) [Ratio] 15.8 % High 10.9-14.2 [facility] Comment on above: Performed By: #### 1 7375362, 4979155, 96480631, 43273490, 1107608, 0443197 ####[address] [place] [address] Hematocrit (Bld) [Volume fraction] 27.9 % Low 37.7-49.0 [facility] Comment on above: Performed By: #### 1 8795029, 6254611, 20035333, 52780659, 5740341, 8534736 ####[facility] [address] [place] [address] Hemoglobin (Bld) [Mass/Vol] 8.7 g/dL Low 13.5-17.5 [facility] Comment on above: Performed By: #### 1 9252934, 4116539, 93538188, 76000357, 4597071, 3624027 ####[facility] [address] [place] [address] MCH (RBC) [Entitic mass] 23.3 pg Low 27.0-34.0 [facility] Comment on above: Performed By: #### 1 6006333, 3474837, 29088181, 91888780, 9680302, 1356751 ####[facility] [address] [place] [address] MCHC (RBC) [Mass/Vol] 31.3 g/dL Low 31.4-36.0 [facility] Comment on above: Performed By: #### 1 7765536, 6103775, 15232344, 34952513, 6680151, 1584372 ####[address] MCV (RBC) [Entitic vol] 74.4 fL Low 80.0-100.0 [facility] Comment on above: Performed By: #### 1 6210169, 2244180, 89493584, 08036448, 5530560, 5342860 ####[address] Platelet mean volume (Bld) [Entitic vol] 8.1 fL Normal 6.4-10.8 [facility] Comment on above: Performed By: #### 1 1570148, 7069493, 23505307, 33742555, 0237173, 6872386 ####[address] [address] Platelets (Bld) [#/Vol] 266.0 E9/L Normal 150.0-500.0 [facility] Comment on above: Performed By: #### 1 9568987, 9343929, 49896877, 22270335, 9578097, 6644739 ####[address] [place] [address] RBC (Bld) [#/Vol] 3.8 E12/L Low 4.3-5.9 [facility] Comment on above: Performed By: #### 1 6720396, 2443170, 67341123, 47567880, 4396957, 4671825 ####[address] [address] WBC corrected for nucl RBC Auto (Bld) [#/Vol] 8.3 E9/L Normal 4.0-11.0 [facility] Comment on above: Performed By: #### 1 0428986, 9063488, 16600382, 88197557, 9868761, 9258361 ####[facility] [address] [place] [address] CHEMISTRYOrdered By: SYSTEM SYSTEM on 08-13-2022 Lactate [Mass/Vol] 0.9 mmol/L Normal 0.5 - 2.2 mmol/L [facility] Remisol Lactate [Mass/Vol] 1.0 mmol/L Normal 0.5 - 2.2 mmol/L [facility] Remisol Troponin I.cardiac [Mass/Vol] 2.50 pg/mL Low 15.90 - 38.40 pg/mL [facility] Remisol COAGULATIONOrdered By: Pascale Portillo on 08-13-2022 aPTT Coag (PPP) [Time] 25.0 s Low 25.1 - 36.5 second(s) [facility] Auto Coag INR Coag (PPP) [Relative time] 1.1 {INR} Invalid Interpretation Code [facility] Auto Coag PT Coag (PPP) [Time] 12.2 s Normal 9.4 - 1 2.5 second(s) [facility] Auto Coag Capillary Glucose POCon Glucose [Mass/Vol] 233 mg/dL High 55-99 [facility] Comment on above: Result Comment: Mary flores RN/ Performed By: #### 2 75868615 ####[facility] [address] [place] [address] Consent for Procedure/Surger yon 08-13-2022 Consent for Procedure/Surgery [id number]#1.00CD:127 Normal [facility] Consent for Treatmenton Consent for Treatment [id number]#1.00CD:127 Normal [facility] Consent for Treatment [id number]#1.00CD:127 Normal [facility] ED Clinical Summaryon 2022 ED Clinical Summary Normal Kamlesh headley [facility] ED Note-Nursingon 08-13-2022 ED Note-Nursing No IV antibiotics gi elton at this time due to IV infiltration at 1230. Multiple attempts by multiple RNs made to gain new IV access with no success. Dr. Kaiser made aware. Normal [facility] ED Note-Nursing Normal [facility] ED Note-Nursing Pt in MRI at this time. Normal [facility] ED Note-Physicianon 08-14-19 ED Note-Physician Normal [facility] Comment on above: Result Comment: Elec tronically Signed By: Jabier Martin PA-C\.br\Date and Time Signed: 08/13/22 17:04 EDT\.br\Electronically Co-Signed By: Derrick Benson DO\.br\Date and Time Co-Signed: 08/13/22 17:11 EDT ED Patient Education Noteon 08-13-2022 ED Patient Education Note Normal [facility] ED Patient Summaryon 023 ED Patient Summary Normal [facility] GetWell Education Videoon GetWell Education Video Patient Avoiding Infections in the Hospital Yes Normal [facility] HEMATOLOGYOrdered By: Terrence Paige on 08-13-2022 Path Review Anemia with mild polychromasia.D64.9CPT 23117 Invalid Interpretation Code [facility] HemeManSS Lactic Acidon 08-13-2022 Lactate [Mass/Vol] 0.9 mmol/L Normal 0.5-2.2 [facility] Comment on above: Performed By: #### 2 123741 ####[facility] [address] [place] [address] Lactate [Mass/Vol] 1.0 mmol/L Normal 0.5-2.2 [facility] Comment on above: Order Comment: pt in ultrasound Performed By: #### 1 2786987, 0693957, 5015586 ####[facility] [address] [place] [address] MRI Foot w/o Contrast Righto n 08-13-2022 MRI Foot w/o Contrast Right Normal [facility] Monitor Recordon 08-13-2022 Monitor Record [id number]#1.00CD:127 Normal [facility] Morphon 08-13-2022 Hypochromia Auto Ql (Bld) Present Normal [facility] Comment on above: Order Comment: Order Added by Discern Expert. Performed By: #### 1 6787122, 4415302, 60198626, 88339013, 0616337, 7145255 ####[facility] [address] [place] [address] Microcytes Ql (Bld) Present Normal [facility] Comment on above: Order Comment: Order Added by Discern Expert. Performed By: #### 1 3861192, 7041726, 45288189, 29222980, 6522875, 1945325 ####[facility] [address] [place] [address] Morphology Errol (Bld) [Interp] See Morphology Normal [facility] Comment on above: Order Comment: Order Added by Discern Expert. Performed By: #### 1 2223014, 6162229, 89582581, 73197168, 5814840, 5036599 ####[facility] [address] [place] [address] Multi-Wound Charton 08-14-19 23 Multi-Wound Chart [id number]#1.00CD:127 Normal [facility] No Panel InformationOrdered By: ANGPROCESSSERVER MICROBIOLOGY on 08-13-2022 Blood Culture Charcoal No growth at 5 days. Final to follow at 7 days. [facility] Blood Culture Charcoal No growth at 5 days. Final to follow at 7 days. [facility] Nursing Assessment - Woundon 08-13-2022 Nursing Assessment - Wound [id number]#1.00CD:127 Normal [facility] Nursing Note - Woundon 08-13 Nursing Note - Wound [id number]#1.00CD:127 Normal [facility] PT & PTTon 08-13-2022 aPTT Coag (PPP) [Time] 25.0 second(s) Low 25.1-36.5 [facility] Comment on above: Order Comment: pt [...] ranges were obtained from a study by johnny Ceja al. prepared from 1437 samples obtained at 7 different centers using the same coagulation reagent and instrumentation as [facility]. Currently there are no coagulation studies available worldwide for children to 14 days, and no normal ranges. Heparin therapeutic range (represented by Anti-Factor Xa activity of 0.2 - 0.4 U/mL) corresponds to PTT of 56.6 - 109.0 sec. Performed By: #### 1 1065742, 7443724, 8999638 ####[facility] [address] [place] [address] INR Coag (PPP) [Relative time] 1.1 {INR} Invalid Interpretation Code [facility] Comment on above: Order Comment: pt in ultrasound Result Comment: INR results are specifically intended to assess patients stabilized on long-term Anticoagulation therapy suggested INR?s ?Less Intensive Anticoagulation? 2.0 ? 3.0Conventional Range 3.0 ? 4.5 Performed By: #### 1 3108321, 5070227, 6986218 ####[facility] [address] [place] [address] PT Coag (PPP) [Time] 12.2 second(s) Normal 9.4-12.5 [facility] Comment on above: Order Comment: pt [...] the same coagulation reagent and instrumentation as [facility]. Currently there are no coagulation studies available worldwide for children to 14 days, and no normal ranges. Performed By: #### 1 1502592, 3146204, 4153945 ####[facility] [address] [place] [address] Physician Orderon 08-13-2022 Physician Order [id number]#1.00CD:127 Normal [facility] Physician Order [id number]#1.00CD:127 Normal [facility] Procedure - Woundon 08-14-19 Procedure - Wound [id number]#1.00CD:127 Normal [facility] Progress Note - Pharmacyon 0 08-13-2022 Progress Note - Pharmacy Normal [facility] RAD - MRI Screening Formon 0 08-13-2022 RAD - MRI Screening Form [id number]#1.00CD:127 Normal [facility] Troponinon 08-13-2022 Troponin I.cardiac [Mass/Vol] 2.50 pg/mL Low 15.90-38.40 [facility] Comment on above: Order Comment: pt in ultrasound Result Comment: The 95% CI (Confidence Interval) PPV (Positive Predictive Value) for myocardial infarction in females is 38 pg/mL, in males 51 pg/mL. The results should be used in conjunction with clinical conditions of myocardial infarction.(Access High Sensitivity Troponin I Instructions For Use, EBOOKAPLACEDecember 2017) Performed By: #### 1 9219112, 6747555, 9109443 ####[facility] [address] [place] [address] UA With Cult Reflexon 2022 Bilirubin Ql (U) Negative Normal Negative [facility] Comment on above: Performed By: #### 1 1867335 ####[facility] [address] [place] [address] Clarity (U) CLEAR Normal Clear [facility] Comment on above: Performed By: #### 1 5427072 ####[address] [address] Color (U) YELLOW Normal Yellow [facility] Comment on above: Performed By: #### 1 0938001 ####[address] [address] Epithelial cells.squamous LM.HPF (Urine sed) [#/Area] 0-2 Normal 0-2 [facility] Comment on above: Performed By: #### 1 6938980 ####[facility] [address] [place] [address] Glucose Test strip (U) [Mass/Vol] 3+ Abnormal Negative [facility] Comment on above: Performed By: #### 1 5592106 ####[address] [address] Hemoglobin Ql (U) TRACE Abnormal Negative [facility] Comment on above: Performed By: #### 1 1720407 ####[facility] [address] [place] [address] Ketones (U) [Mass/Vol] Negative Normal Negative [facility] Comment on above: Performed By: #### 1 0539631 ####[address] [address] Sagar.plasma/Lithiu m.RBC (Bld) [Mass ratio] 0-3 Normal 0-3 [facility] Comment on above: Performed By: #### 1 6341256 ####[facility] [address] [place] [address] Nitrite Ql (U) Negative Normal Negative [facility] Comment on above: Performed By: #### 1 1255495 ####[address] [place] [address] pH (U) 6.5 [pH] Invalid Interpretation Code 5.0-9.0 [facility] Comment on above: Performed By: #### 1 9375231 ####[address] [address] Protein (U) [Mass/Vol] TRACE Abnormal Negative [facility] Comment on above: Performed By: #### 1 3738983 ####[address] [address] Specific gravity (U) [Rel density] 1.010 Invalid Interpretation Code 1.005-1.030 [facility] Comment on above: Performed By: #### 1 4513594 ####[address] [address] Type of Urine collection method Clean Catch Normal [facility] Comment on above: Performed By: #### 1 7737341 ####[address] [address] Urobilinogen Qn (U) 0.2 {Tu'U}/dL Normal 0.0-1.0 [facility] Comment on above: Performed By: #### 1 6358596 ####[address] [address] WBC Auto Ql (U) Negative Normal Negative [facility] Comment on above: Performed By: #### 1 2085959 ####[facility] [address] [place] [address] WBC LM.HPF (Urine sed) [#/Area] 0-5 Normal 0-5 [facility] Comment on above: Performed By: #### 1 1326171 ####[address] [address] URINALYSISOrdered By: Alecia Portillo on 08-13-2022 Bilirubin [...] AM) Normal Negative [facility] UA Auto SS Sagar.plasma/Lithiu m.RBC (Bld) [Mass ratio] 0-3 /HPF Normal [...] Desc Clean Catch (08/13/22 10:23 AM) Normal [facility] UA Auto SS Urobilinogen Qn (U) 0.7227453 {Tu'U}/dL Normal 0.0 - 1.0 EU/dL [facility] UA Auto SS WBC Auto Ql (U) Negative (08/13/22 10:23 AM) Normal Negative [facility] UA Auto SS WBC LM.HPF (Urine sed) [#/Area] 0-5 /HPF Normal 0-5/HPF [facility] UA Auto SS US LE Venous Duplex Righton 08-13-2022 US LE Venous Duplex Right Normal [facility] eGFRon 08-13-2022 GFR/1.73 sq M.predicted among blacks MDRD (S/P/Bld) [Vol rate/Area] mL/min/{1.73_m2} Normal >=59 [facility] Comment on above: Order Comment: Order added by Discern Expert. Result Comment: eGFR is race adjusted. AA=. Performed By: #### 1 0779993, 0769838, 63262717, 85437800, 3595195, 1840198 ####[facility] [address] [place] [address] GFR/1.73 sq M.predicted among non-blacks MDRD (S/P/Bld) [Vol rate/Area] mL/min/{1.73_m2} Normal >=59 [facility] Comment on above: Order Comment: Order added by Discern Expert. Result Comment: Product Analyst claus kidney disease could be indicated at eGFR's of less than 60 mL/min/1.73m2. Kidney failure is indicated at less than 15 mL/min/1.73m2. Performed By: #### 1 6446377, 7139232, 97275182, 18448174, 2141763, 1794202 ####[facility] [address] [place] [address] Coding Summary.on 08-07-2022 Coding Summary. Normal [facility] Coding Summary.on 08-06-2022 Coding Summary. [facility] Consent for Treatmenton 07-10 Consent for Treatment [id number]#1.00CD:127 [facility] Physician Orderon 08-06-2022 Physician Order [id number]#1.00CD:127 [facility] Procedure - Woundon 08-07-19 Procedure - Wound [id number]#1.00CD:127 [facility] Progress Note - Woundon 07-10 Progress Note - Wound [id number]#1.00CD:127 [facility] Creatinine [Mass/volume] in Serum or PlasmaOrdered By: Ramiro Epperson on 08-04-2022 Creatinine [Mass/Vol] 1.18 mg/dL 0.70-1.30 [facility] Laboratory - Chemistry and C hemistry - challengeOrdered By: Ramiro Epperson on 08-04-2022 GFR/1.73 sq M.predicted MDRD (S/P/Bld) [Vol rate/Area] mL/min/{1.73_m2} [facility] Multi-Wound Charton 08-05-19 Multi-Wound Chart [id number]#1.00CD:127 [facility] No Panel InformationOrdered By: Ramiro Epperson on 08-04-2022 Pharmacy Creatinine Clearance (Chem N/A [facility] Nursing Note - Woundon 08-04 Nursing Note - Wound [id number]#1.00CD:127 [facility] Serum or plasma trough vanco mycin levelOrdered By: Ramiro Epeprson on 08-04-2022 Vancomycin trough [Mass/Vol] 12.4 ug/mL 10.0-20.0 [facility] Comment on above: Last dose: - Nursing Assessment - Woundon 08-01-2022 Nursing Assessment - Wound [id number]#1.00CD:127 [facility] Physician Orderon 08-01-2022 Physician Order [id number]#1.00CD:127 [facility] Procedure - Woundon 08-02-19 Procedure - Wound [id number]#1.00CD:127 [facility] Progress Note - Woundon 07-10 Progress Note - Wound [id number]#1.00CD:127 [facility] Consent for Treatmenton 07-10 Consent for Treatment [id number]#1.00CD:127 [facility] Creatinine [Mass/volume] in Serum or PlasmaOrdered By: Santos Epperson on 07-31-2022 Creatinine [Mass/Vol] 1.05 mg/dL 0.70-1.30 [facility] Laboratory - Chemistry and C hemistry - challengeOrdered By: Santos Epperson on 07-31-2022 GFR/1.73 sq M.predicted MDRD (S/P/Bld) [Vol rate/Area] mL/min/{1.73_m2} [facility] No Panel InformationOrdered By: Santos Epperson on 07-31-2022 Pharmacy Creatinine Clearance (Chem N/A [facility] Serum or plasma trough vanco mycin levelOrdered By: Santos Epperson on 07-31-2022 Vancomycin trough [Mass/Vol] 9.8 ug/mL 10.0-20.0 [facility] Comment on above: Last dose: - Coding Summary.on 07-29-2022 Coding Summary. Normal [facility] Physician Orderon 07-29-2022 Physician Order [id number]#1.00CD:12 7 [facility] Consent for Procedure/Surger yon 07-28-2022 Consent for Procedure/Surgery [id number]#1.00CD:127 [facility] Creatinine [Mass/volume] in Serum or PlasmaOrdered By: Ramiro Epperson on 07-25-2022 Creatinine [Mass/Vol] 1.01 mg/dL 0.70-1.30 [facility] Laboratory - Chemistry and C hemistry - challengeOrdered By: Ramiro Epperson on 07-25-2022 GFR/1.73 sq M.predicted MDRD (S/P/Bld) [Vol rate/Area] mL/min/{1.73_m2} [facility] Multi-Wound Charton 07-26-19 Multi-Wound Chart [id number]#1.00CD:127 [facility] No Panel InformationOrdered By: Ramiro Epperson on 07-25-2022 Pharmacy Creatinine Clearance (Chem N/A [facility] Nursing Assessment - Woundon 07-25-2022 Nursing Assessment - Wound [id number]#1.00CD:127 [facility] Nursing Note - Woundon 07-25 Nursing Note - Wound [id number]#1.00CD:127 [facility] Serum or plasma trough vanco mycin levelOrdered By: Ramiro Epperson on 07-25-2022 Vancomycin trough [Mass/Vol] 20.9 ug/mL 10.0-20.0 [facility] Comment on above: Last dose: - Consent for Treatmenton 07-09 Consent for Treatment [id number]#1.00CD:127 [facility] Physician Orderon 07-24-2022 Physician Order [id number]#1.00CD:127 [facility] Procedure - Woundon 07-25-19 Procedure - Wound [id number]#1.00CD:127 [facility] Progress Note - Woundon 07-09 Progress Note - Wound [id number]#1.00CD:127 [facility] Creatinine [Mass/volume] in Serum or PlasmaOrdered By: Ramiro Epperson on 07-23-2022 Creatinine [Mass/Vol] 1.10 mg/dL 0.70-1.30 [facility] Laboratory - Chemistry and C hemistry - challengeOrdered By: Ramiro Epperson on 07-23-2022 GFR/1.73 sq M.predicted MDRD (S/P/Bld) [Vol rate/Area] mL/min/{1.73_m2} [facility] No Panel InformationOrdered By: Ramiro Epperson on 07-23-2022 Pharmacy Creatinine Clearance (Chem N/A [facility] Physician Orderon 07-23-2022 Physician Order [id number]#1.00CD:127 [facility] Serum or plasma trough vanco mycin levelOrdered By: Ramiro Epperson on 07-23-2022 Vancomycin trough [Mass/Vol] 22.9 ug/mL 10.0-20.0 [facility] Comment on above: Last dose: - Coding Summary.on 07-21-2022 Coding Summary. Normal [facility] Coding Summary.on 07-18-2022 Coding Summary. [facility] Creatinine [Mass/volume] in Serum or PlasmaOrdered By: Ramiro Epperson on 07-18-2022 Creatinine [Mass/Vol] 1.07 mg/dL 0.70-1.30 [facility] Laboratory - Chemistry and C hemistry - challengeOrdered By: Ramiro Epperson on 07-18-2022 GFR/1.73 sq M.predicted MDRD (S/P/Bld) [Vol rate/Area] mL/min/{1.73_m2} [facility] No Panel InformationOrdered By: Ramiro Epperson on 07-18-2022 Pharmacy Creatinine Clearance (Chem N/A [facility] Serum or plasma trough vanco mycin levelOrdered By: Ramiro Epperson on 07-18-2022 Vancomycin trough [Mass/Vol] 15.1 ug/mL 10.0-20.0 [facility] Comment on above: Last dose: - Nursing Assessment - Woundon 07-17-2022 Nursing Assessment - Wound [id number]#1.00CD:127 [facility] Nursing Note - Woundon 07-17 Nursing Note - Wound [id number]#1.00CD:127 [facility] Consent for Treatmenton Consent for Treatment [id number]#1.00CD:127 [facility] Multi-Wound Charton 07-17-19 Multi-Wound Chart [id number]#1.00CD:127 [facility] Physician Orderon 07-16-2022 Physician Order [id number]#1.00CD:127 [facility] Physician Order [id number]#1.00CD:127 [facility] Proceduralon 07-16-2022 Procedural [id number]#1.00CD:127 [facility] Procedure - Woundon 07-17-19 Procedure - Wound [id number]#1.00CD:127 [facility] Progress Note - Woundon Progress Note - Wound [id number]#1.00CD:127 [facility] Coding Summary.on 07-15-2022 Coding Summary. [facility] ED Note-Physicianon 07-16-19 ED Note-Physician [facility] Comment on above: Result Comment: Elec tronically Signed By: Everardo Puckett PA-C\.br\Date and Time Signed: 07/14/22 16:22 EST\.br\Electronically Co-Signed By: Mark Vela DO\.br\Date and Time Co-Signed: 07/15/22 07:09 EST Consent for Treatmenton Consent for Treatment [id number]#1.00CD:127 [facility] Discharge Instructionson Discharge Instructions [id number]#1.00CD:127 [facility] ED Clinical Summaryon [address] [facility] ED Patient Education Noteon 07-14-2022 ED Patient Education Note Normal [facility] ED Patient Summaryon 023 ED Patient Summary Normal [facility] Serum or plasma trough vanco mycin levelOrdered By: Ramiro Epperson on 07-14-2022 Vancomycin trough [Mass/Vol] 17.4 ug/mL 10.0-20.0 [facility] Comment on above: Last dose: - XR Foot 3+ Views Righton XR Foot 3+ Views Right Normal [facility] Creatinine and Glomerular fi ltration rate.predicted panel (S/P/Bld)Ordered By: Ronaldo Arcos on 07-11-2022 Creatinine [Mass/Vol] 0.94 mg/dL 0.64-1.27 [facility] Estimated glomerular filtrat ion rate (GFR) non- AmericanOrdered By: Ronaldo Arcos on 07-11-2022 GFR/1.73 sq M.predicted among non-blacks MDRD (S/P/Bld) [Vol rate/Area] > 60 mL/Min [facility] No Panel InformationOrdered By: Ronaldo Arcos on 07-11-2022 Estimated GFR () > 60 mL/Min [facility] Comment on above: GFR estimated refere nce range: According to KDOQI guidelines, <60 ml/min/1.73m2 is sufficient to diagnose a patient with chronic kidney disease. Pharmacy Creatinine Clearance (Chem N/A [facility] Serum or plasma trough vanco mycin levelOrdered By: Ronaldo Arcos on 07-11-2022 Vancomycin trough [Mass/Vol] 16.7 ug/mL 10.0-20.0 [facility] Comment on above: Last dose: - Consent for Procedure/Surger yon 07-09-2022 Consent for Procedure/Surgery [id number]#1.00CD:127 Normal [facility] Consent for Treatmenton Consent for Treatment [id number]#1.00CD:127 Normal [facility] Multi-Wound Charton 07-10-19 23 Multi-Wound Chart [id number]#2.00CD:127 Normal [facility] Nursing Assessment - Woundon 07-09-2022 Nursing Assessment - Wound [id number]#1.00CD:127 [facility] Nursing Note - Woundon 07-09 Nursing Note - Wound [id number]#1.00CD:127 Normal [facility] Physician Orderon 07-09-2022 Physician Order [id number]#1.00CD:127 [facility] Physician Order [id number]#1.00CD:127 [facility] Procedure - Woundon 07-10-19 Procedure - Wound [id number]#1.00CD:127 Normal [facility] Progress Note - Woundon Progress Note - Wound [id number]#1.00CD:127 Normal [facility] Coding Summary.on 07-08-2022 Coding Summary. Normal [facility] Creatinine and Glomerular fi ltration rate.predicted panel (S/P/Bld)Ordered By: Santos Epperson on 07-07-2022 Creatinine [Mass/Vol] 0.92 mg/dL 0.64-1.27 [facility] Estimated glomerular filtrat ion rate (GFR) non- AmericanOrdered By: Santos Epperson on 07-07-2022 GFR/1.73 sq M.predicted among non-blacks MDRD (S/P/Bld) [Vol rate/Area] > 60 mL/Min [facility] No Panel InformationOrdered By: Santos Epperson on 07-07-2022 Estimated GFR () > 60 mL/Min [facility] Comment on above: GFR estimated refere nce range: According to KDOQI guidelines, <60 ml/min/1.73m2 is sufficient to diagnose a patient with chronic kidney disease. Pharmacy Creatinine Clearance (Chem N/A [facility] Serum or plasma trough vanco mycin levelOrdered By: Santos Epperson on 07-07-2022 Vancomycin trough [Mass/Vol] 16.7 ug/mL 10.0-20.0 [facility] Comment on above: Last dose: - Multi-Wound Charton 07-04-19 Multi-Wound Chart [id number]#2.00CD:127 [facility] Nursing Assessment - Woundon 07-04-2022 Nursing Assessment - Wound [id number]#1.00CD:127 [facility] Nursing Note - Woundon 07-04 Nursing Note - Wound [id number]#1.00CD:127 [facility] Serum or plasma trough vanco mycin levelOrdered By: Santos Epperson on 07-04-2022 Vancomycin trough [Mass/Vol] 17.8 ug/mL 10.0-20.0 [facility] Comment on above: Last dose: - Coding Summary.on 07-03-2022 Coding Summary. [facility] Consent for Treatmenton 06-12 Consent for Treatment [id number]#1.00CD:127 [facility] IntraOperative Documentson 0 07-02-2022 IntraOperative Documents [id number]#1.00CD:127 [facility] Physician Orderon 07-02-2022 Physician Order [id number]#1.00CD:12 7 [facility] Physician Order [id number]#1.00CD:127 [facility] Progress Note - Woundon 06-12 Progress Note - Wound [id number]#1.00CD:127 Normal [facility] Serum or plasma trough vanco mycin levelOrdered By: Ramiro Epperson on 07-02-2022 Vancomycin trough [Mass/Vol] 17.3 ug/mL 10.0-20.0 [facility] Comment on above: Last dose: - Auto Diffon 07-01-2022 Basophils/100 WBC (Bld) 0.9 % Normal 0.0-2.0 [facility] Comment on above: Order Comment: Order Added by Discern Expert. Performed By: #### 1 [id number], 00320602, 5508362, 6361244, 0658371 ####[facility] [address] [place] [address] Basophils/Leukocytes Auto (Bld) [Pure # fraction] 0.1 E9/L Normal 0.0-0.2 [facility] Comment on above: Order Comment: Order Added by Discern Expert. Performed By: #### 1 6401145, 58663480, 8468461, 7007309, 4364492 ####[facility] [address] [place] [address] Eosinophils/100 WBC (Bld) 2.4 % Normal 0.0-8.0 [facility] Comment on above: Order Comment: Order Added by Discern Expert. Performed By: #### 1 4615812, 11741995, 7132426, 5842336, 3794688 ####[facility] [address] [place] [address] Eosinophils/Leukocyte s Auto (Bld) [Pure # fraction] 0.2 E9/L Normal 0.0-0.5 [facility] Comment on above: Order Comment: Order Added by Discern Expert. Performed By: #### 1 7309661, 82861210, 7444374, 4780033, 4751071 ####[facility] [address] [place] [address] Lymphocytes/100 WBC (Bld) 24.1 % Normal 14.0-50.0 [facility] Comment on above: Order Comment: Order Added by Discern Expert. Performed By: #### 1 3858721, 40746903, 6707661, 0026977, 1931106 ####[facility] [address] [place] [address] Lymphocytes/Leukocyte s Auto (Bld) [Pure # fraction] 1.6 E9/L Normal 1.0-4.0 [facility] Comment on above: Order Comment: Order Added by Discern Expert. Performed By: #### 1 8289468, 24540093, 1573263, 3466944, 5261806 ####[address] [place] [address] Monocytes/100 WBC (Bld) 8.3 % Normal 4.0-14.0 [facility] Comment on above: Order Comment: Order Added by Discern Expert. Performed By: #### 1 8005999, 99905223, 0273797, 5958399, 4195782 ####[address] [address] Monocytes/Leukocytes Auto (Bld) [Pure # fraction] 0.6 E9/L Normal 0.2-1.0 [facility] Comment on above: Order Comment: Order Added by Discern Expert. Performed By: #### 1 9723953, 41239337, 5208924, 1373457, 9789764 ####[address] [place] [address] Neutrophils/100 WBC (Bld) 64.3 % Normal 36.0-75.0 [facility] Comment on above: Order Comment: Order Added by Discern Expert. Performed By: #### 1 2856060, 60621695, 1068665, 2978674, 8914739 ####[address] [place] [address] Neutrophils/Leukocyte s Auto (Bld) [Pure # fraction] 4.4 E9/L Normal 2.0-7.5 [facility] Comment on above: Order Comment: Order Added by Frankie Expert. Performed By: #### 1 4508925, 15286638, 3446054, 7823013, 9643303 ####[address] [address] CBC w/ Auto Diffon Erythrocyte distribution width (RBC) [Ratio] 16.3 % High 10.9-14.2 [facility] Comment on above: Performed By: #### 1 3642673, 63286003, 8489236, 5441765, 8119314 ####[place] [address] Hematocrit (Bld) [Volume fraction] 30.4 % Low 37.7-49.0 [facility] Comment on above: Performed By: #### 1 2749603, 93654364, 4656804, 0751589, 6384798 ####[place] [place] Hemoglobin (Bld) [Mass/Vol] 10.0 g/dL Low 13.5-17.5 [facility] Comment on above: Performed By: #### 1 2270730, 48047401, 5093447, 8260506, 3963771 ####[address] [address] MCH (RBC) [Entitic mass] 25.7 pg Low 27.0-34.0 [facility] Comment on above: Performed By: #### 1 4056902, 42478802, 9704903, 4596225, 9210741 ####[address] [address] MCHC (RBC) [Mass/Vol] 32.8 g/dL Normal 31.4-36.0 [facility] Comment on above: Performed By: #### 1 8135675, 19299081, 7526289, 6860373, 1054227 ####[address] [address] MCV (RBC) [Entitic vol] 78.4 fL Low 80.0-100.0 [facility] Comment on above: Performed By: #### 1 0855855, 25597342, 0271823, 0639902, 9394345 ####[facility] [address] [place] [address] Platelet mean volume (Bld) [Entitic vol] 8.4 fL Normal 6.4-10.8 [facility] Comment on above: Performed By: #### 1 4218400, 51829129, 4943205, 3011198, 7809282 ####[address] [place] [address] Platelets (Bld) [#/Vol] 316.0 E9/L Normal 150.0-500.0 [facility] Comment on above: Performed By: #### 1 5916824, 55346389, 6558990, 2589572, 1457486 ####[address] [place] [id number] RBC (Bld) [#/Vol] 3.9 E12/L Low 4.3-5.9 [facility] Comment on above: Performed By: #### 1 8998372, 59820145, 0419179, 2104570, 5120590 ####[address] [address] WBC corrected for nucl RBC Auto (Bld) [#/Vol] 6.8 E9/L Normal 4.0-11.0 [facility] Comment on above: Performed By: #### 1 4891984, 85029328, 4922207, 1655505, 2347267 ####[place] [address] CHEMISTRYOrdered By: SYSTEM SYSTEM on 07-01-2022 Albumin [...] rate/Area] mL/min/1.73 m2 Normal >=59mL/min/1 .73 m2 [facility] Chem S GFR/1.73 sq M.predicted among non-blacks MDRD (S/P/Bld) [Vol rate/Area] mL/min/1.73 m2 Normal >=59mL/min/1 .73 m2 [facility] Chem S Globulin (S) [Mass/Vol] 4.3 g/dL High 1.4 - 4.0 gm/dL [facility] Remisol Glucose [Mass/Vol] 203 mg/dL High 55 - 199 mg/dL [facility] Remisol Potassium [Moles/Vol] 4.3 mmol/L Normal 3.5 - 5.3 mmol/L [facility] Remisol Protein [Mass/Vol] 7.4 g/dL Normal 6.0 - 7.8 gm/dL [facility]isol Sodium [Moles/Vol] 131 mmol/L Low 135 - 145 mmol/L [facility] Remisol Urea nitrogen [Mass/Vol] 30 mg/dL High 5 - 21 mg/dL [facility] Remisol Urea nitrogen/Creatinine [Mass ratio] 30 mg/mg High 10 - 20 [facility] Remisol CMPon 07-01-2022 Albumin [Mass/Vol] 3.1 g/dL Low 3.3-5.0 [facility] Comment on above: Performed By: #### 1 3716833, 40256601, 9135289, 3339139, 9180499 ####[address] [place] [address] Albumin/Globulin (S) [Mass conc ratio] 0.7 Low 1.1-2.2 [facility] Comment on above: Performed By: #### 1 1817849, 03007146, 7623407, 7301345, 7251808 ####[place] [address] ALP [Catalytic activity/Vol] 53 Int._Unit/L Normal 21-98 [facility] Comment on above: Performed By: #### 1 6565662, 18950964, 7931020, 8636306, 8894237 ####[address] [address] ALT No additional P-5'-P [Catalytic activity/Vol] 14 Int._Unit/L Normal 6-46 [facility] Comment on above: Performed By: #### 1 1588138, 94877183, 3809219, 2802882, 1495512 ####[place] [address] AST [Catalytic activity/Vol] 16 Int._Unit/L Normal 5-43 [facility] Comment on above: Performed By: #### 1 3698931, 00391492, 2352176, 6822055, 6123056 ####[place] [address] Bilirubin [Mass/Vol] 0.6 mg/dL Normal 0.0-1.1 [facility] Comment on above: Performed By: #### 1 3847072, 13428817, 7259410, 5010176, 1870221 ####[address] [address] Creatinine [Mass/Vol] 1.0 mg/dL Normal 0.5-1.3 [facility] Comment on above: Performed By: #### 1 7690313, 47302401, 8012056, 6111824, 0117174 ####[facility] [address] [place] [address] Globulin (S) [Mass/Vol] 4.3 g/dL High 1.4-4.0 [facility] Comment on above: Performed By: #### 1 0914783, 71147883, 0733763, 3526540, 0659935 ####[facility] [address] [place] [address] Protein [Mass/Vol] 7.4 g/dL Normal 6.0-7.8 [facility] Comment on above: Performed By: #### 1 4628446, 28039797, 0760790, 4030737, 2148972 ####[facility] [address] [place] [address] Urea nitrogen [Mass/Vol] 30 mg/dL High 5-21 [facility] Comment on above: Performed By: #### 1 3613121, 96986487, 0200484, 0874514, 3488215 ####[facility] [address] [place] [address] Urea nitrogen/Creatinine [Mass ratio] 30 No Units High 10-20 [facility] Comment on above: Performed By: #### 1 1959360, 93966241, 7024327, 3435200, 5447346 ####[facility] [address] [place] [address] Anion gap [Moles/Vol] 14 mmol/L Normal 6-16 [facility] Comment on above: Performed By: #### 1 8310538, 85379832, 9947725, 1198141, 1734351 ####[facility] [address] [place] [address] Calcium [Mass/Vol] 9.0 mg/dL Normal 8.9-11.1 [facility] Comment on above: Performed By: #### 1 5934047, 34996267, 2619405, 4342871, 8472179 ####[facility] [address] [place] [address] Chloride [Moles/Vol] 94 mmol/L Low 101-111 [facility] Comment on above: Performed By: #### 1 6835569, 25619562, 3398702, 6242634, 2733591 ####[facility] [address] [place] [address] CO2 [Moles/Vol] 27 mmol/L Normal 21-31 [facility] Comment on above: Performed By: #### 1 6844310, 62257600, 1661502, 6196385, 6094494 ####[facility] [address] [place] [address] Glucose [Mass/Vol] 203 mg/dL High 55-199 [facility] Comment on above: Result Comment: If t his glucose result represents a fasting glucose, interpretation should refer to the following reference range: 55-99 mg/dL Performed By: #### 1 8610142, 84409635, 8043295, 5047395, 1754234 ####[facility] [address] [place] [address] Potassium [Moles/Vol] 4.3 mmol/L Normal 3.5-5.3 [facility] Comment on above: Performed By: #### 1 8294562, 23242502, 2224443, 4495712, 7811130 ####[facility] [address] [place] [address] Sodium [Moles/Vol] 131 mmol/L Low 135-145 [facility] Comment on above: Performed By: #### 1 3193387, 44574957, 8600579, 1014296, 1473565 ####[facility] [address] [place] [address] COAGULATIONOrdered By: Carly Bray on 07-01-2022 aPTT Coag (PPP) [Time] 42.7 s High 25.1 - 36.5 second(s) [facility] Auto Coag INR Coag (PPP) [Relative time] 1.1 {INR} Invalid Interpretation Code [facility] Auto Coag PT Coag (PPP) [Time] 12.3 s Normal 9.4 - 1 2.5 second(s) [facility] Auto Coag Consent for Treatmenton 06-12 Consent for Treatment [id number]#1.00CD:127 Normal [facility] Discharge Instructionson Discharge Instructions [id number]#1.00CD:127 Normal [facility] ED Clinical Summaryon 2022 ED Clinical Summary Normal [facility] ED Note-Physicianon 07-01-19 ED Note-Physician Normal [facility] Comment on above: Result Comment: Elec tronically Signed By: Mark Vela DO\.br\Date and Time Signed: 07/01/22 14:43 EST ED Patient Education Noteon 07-01-2022 ED Patient Education Note Normal [facility] ED Patient Summaryon 023 ED Patient Summary Normal [facility] HEMATOLOGYOrdered By: SYSTEM SYSTEM on 07-01-2022 [...] 316.0 E9/L Normal 150.0 - 500.0 E9/L [facility] HemeAutoSS RBC (Bld) [#/Vol] 3.9 E12/L Low 4.3 - 5.9 E12/L [facility] HemeAutoSS WBC corrected for nucl RBC Auto (Bld) [#/Vol] 6.8 E9/L Normal 4.0 - 11.0 E9/L [facility] HemeAutoSS PT & PTTon 07-01-2022 aPTT Coag (PPP) [Time] 42.7 second(s) High 25.1-36.5 [facility] Comment on above: Result Comment: Para meter 15 days - 4 weeks 1 - 5 months 6 - 11 months 1 - 5 years 6 - 10 years 11 - 17 years PTT Mean: 35.4 (27.6-45.6) Mean: 33.5 (24.8-40.7) Mean: 32.4 (25.1-40.7) Mean: 31.6 (24.0-39.2) Mean: 31.6 (26.9-38.7) Mean: 31.0 (24.6-38.4) Pediatric Reference ranges were obtained from a study by johnny Ceja al. prepared from 1437 samples obtained at 7 different centers using the same coagulation reagent and instrumentation as [facility]. Currently there are no coagulation studies available worldwide for children to 14 days, and no normal ranges. Heparin therapeutic range (represented by Anti-Factor Xa activity of 0.2 - 0.4 U/mL) corresponds to PTT of 56.6 - 109.0 sec. Performed By: #### 1 6181183, 18697077, 9094320, 5412205, 8996159 ####[facility] [address] [place] [address] INR Coag (PPP) [Relative time] 1.1 {INR} Invalid Interpretation Code [facility] Comment on above: Result Comment: INR results are specifically intended to assess patients stabilized on long-term Anticoagulation therapy suggested INR?s ?Less Intensive Anticoagulation? 2.0 ? 3.0Conventional Range 3.0 ? 4.5 Performed By: #### 1 2069446, 63812025, 7826817, 9429606, 0600471 ####[facility] [address] [place] [address] PT Coag (PPP) [Time] 12.3 second(s) Normal 9.4-12.5 [facility] Comment on above: Result Comment: 15 [...] ranges were obtained from a study by johnny Ceja al. prepared from 1437 samples obtained at 7 different centers using the same coagulation reagent and instrumentation as [facility]. Currently there are no coagulation studies available worldwide for children to 14 days, and no normal ranges. Performed By: #### 1 0853997, 91304862, 1130064, 1881418, 7490058 ####[facility] [address] [place] [address] Progress Note-Physicianon Progress Note-Physician Normal [facility] Comment on above: Result Comment: Elec tronically Signed By: Ramiro Epperson DPMbr\Date and Time Signed: 07/01/22 13:17 EST eGFRon 07-01-2022 GFR/1.73 sq M.predicted among blacks MDRD (S/P/Bld) [Vol rate/Area] mL/min/{1.73_m2} Normal >=59 [facility] Comment on above: Order Comment: Order added by Discern Expert. Result Comment: eGFR is race adjusted. AA=. Performed By: #### 1 [id number], [id number], 2634894, 5843328, 5538111 ####[facility] [address] [place] [address] GFR/1.73 sq M.predicted among non-blacks MDRD (S/P/Bld) [Vol rate/Area] mL/min/{1.73_m2} Normal >=59 [facility] Comment on above: Order Comment: Order added by Discern Expert. Result Comment: Product Analyst claus kidney disease could be indicated at eGFR's of less than 60 mL/min/1.73m2. Kidney failure is indicated at less than 15 mL/min/1.73m2. Performed By: #### 1 [id number], [id number], 4471098, 2161052, 4552973 ####[facility] [address] [place] [address] Coding Summary.on 06-30-2022 Coding Summary. Normal [facility] Operative Reporton Operative Report Normal [facility] Comment on above: Result Comment: Elec tronically Signed By: Santos Epperson DPM\Date and Time Signed: 06/30/22 10:01 EST Coding Summary.on 06-27-2022 Coding Summary. Normal [facility] Serum or plasma trough vanco mycin levelOrdered By: Ramiro Epperson on 06-27-2022 Vancomycin trough [Mass/Vol] 14.6 ug/mL 10.0-20.0 [facility] Comment on above: Last dose: - Coding Queryon 06-26-2022 Coding Query [facility] Main OR Intraoperative Recor don 06-26-2022 Main OR Intraoperative Record [facility] Multi-Wound Charton 06-26-19 Multi-Wound Chart [id number]#1.00CD:127 [facility] Nursing Assessment - Woundon 06-26-2022 Nursing Assessment - Wound [id number]#1.00CD:127 [facility] Nursing Note - Woundon 06-26 Nursing Note - Wound [id number]#1.00CD:127 [facility] C Blood Charcoalon Blood Culture Charcoal [facility] Comment on above: Performed By: #### 1 [id number] ####[facility] [address] [place] [address] Coding Queryon 06-25-2022 Coding Query [facility] Consent for Treatmenton 06-11 Consent for Treatment [id number]#1.00CD:127 [facility] Physician Orderon 06-25-2022 Physician Order [id number]#1.00CD:127 [facility] Progress Note - Woundon 06-11 Progress Note - Wound [id number]#1.00CD:127 [facility] Coding Queryon 06-24-2022 Coding Query [facility] Consent for PICC lineon 06-11 Consent for PICC line [id number]#1.00CD:127 Normal [facility] General Message Officeon General Message Office Normal [facility] Serum or plasma trough vanco mycin levelOrdered By: Ramiro Sabaemily on 06-24-2022 Vancomycin trough [Mass/Vol] 13.9 ug/mL 10.0-20.0 [facility] Comment on above: Last dose: - BMPon 06-23-2022 Anion gap [Moles/Vol] 11 mmol/L Normal 6-16 [facility] Comment on above: Performed By: #### 2 143781, 1609637, 69639164 ####[facility] [address] [place] [address] Calcium [Mass/Vol] 8.7 mg/dL Low 8.9-11.1 [facility] Comment on above: Performed By: #### 2 772415, 0774011, 33985806 ####[facility] [address] [place] [address] Chloride [Moles/Vol] 98 mmol/L Low 101-111 [facility] Comment on above: Performed By: #### 2 682711, 5570478, 15211530 ####[facility] [address] [place] [address] CO2 [Moles/Vol] 27 mmol/L Normal 21-31 [facility] Comment on above: Performed By: #### 2 299572, 9588134, 50936771 ####[facility] [address] [place] [address] Creatinine [Mass/Vol] 1.1 mg/dL Normal 0.5-1.3 [facility] Comment on above: Performed By: #### 2 933655, 6454927, 66755989 ####[facility] [address] [place] [address] Glucose [Mass/Vol] 213 mg/dL High 55-199 [facility] Comment on above: Result Comment: If t his glucose result represents a fasting glucose, interpretation should refer to the following reference range: 55-99 mg/dL Performed By: #### 2 015951, 8531272, 06034817 ####[facility] [address] [place] [address] Potassium [Moles/Vol] 3.9 mmol/L Normal 3.5-5.3 [facility] Comment on above: Performed By: #### 2 627985, 7645296, 85388732 ####[facility] [address] [place] [address] Sodium [Moles/Vol] 132 mmol/L Low 135-145 [facility] Comment on above: Performed By: #### 2 502602, 0173326, 13522864 ####[facility] [address] [place] [address] Urea nitrogen [Mass/Vol] 28 mg/dL High 5-21 [facility] Comment on above: Performed By: #### 2 799643, 1431754, 81494824 ####[facility] [address] [place] [address] Urea nitrogen/Creatinine [Mass ratio] 26 No Units High 10-20 [facility] Comment on above: Performed By: #### 2 142459, 7811488, 05794127 ####[facility] [address] [place] [address] C Boneon 06-23-2022 Bone Culture Normal [facility] Comment on above: Performed By: #### 1 8010823 ####[facility] [address] [place] [address] CHEMISTRYOrdered By: Lab ROP User on 06-23-2022 Glucose [Mass/Vol] 273 mg/dL High 55 - 99 mg/dL [facility] POC Subsection Comment on above: Result Comment: Mary COLLAZO POC Device SN [id number] Invalid Interpretation Code [facility] POC Subsection POC User ID [id number] Invalid Interpretation Code [facility] POC Subsection POC Username EMERITA FAM Invalid Interpretation Code [facility] POC Subsection Glucose [Mass/Vol] 179 mg/dL High 55 - 99 mg/dL [facility] POC Subsection Comment on above: Result Comment: Mary COLLAZO POC Device SN [id number] Invalid Interpretation Code [facility] POC Subsection POC User ID [id number] Invalid Interpretation Code [facility] POC Subsection POC Username MARY RAMSEY Invalid Interpretation Code [facility] POC Subsection CHEMISTRYOrdered By: SYSTEM SYSTEM on 06-23-2022 Anion gap [Moles/Vol] 11 mmol/L Normal 6 - 16 mEq/L F C Remisol Calcium [Mass/Vol] 8.7 mg/dL Low 8.9 - 11. 1 mg/dL [facility] Remisol Chloride [Moles/Vol] 98 mmol/L Low 101 - 1 11 mmol/L [facility] Remisol CO2 [Moles/Vol] 27 mmol/L Normal 21 - 31 mmol/L [facility] Remisol Creatinine [Mass/Vol] 1.1 mg/dL Normal 0.5 - 1.3 mg/dL [facility] Remisol GFR/1.73 sq M.predicted among blacks MDRD (S/P/Bld) [Vol rate/Area] mL/min/1.73 m2 Normal >=59mL/min/1 .73 m2 [facility] Chem S GFR/1.73 sq M.predicted among non-blacks MDRD (S/P/Bld) [Vol rate/Area] mL/min/1.73 m2 Normal >=59mL/min/1 .73 m2 [facility] Chem S Glucose [Mass/Vol] 213 mg/dL High 55 - 199 mg/dL [facility] Remisol Magnesium [Mass/Vol] 2.0 mg/dL Normal 1.3 - 2 .4 mg/dL [facility] Remisol Potassium [Moles/Vol] 3.9 mmol/L Normal 3.5 - 5.3 mmol/L [facility] Remisol Sodium [Moles/Vol] 132 mmol/L Low 135 - 145 mmol/L [facility] Remisol Urea nitrogen [Mass/Vol] 28 mg/dL High 5 - 21 mg/dL [facility] Remisol Urea nitrogen/Creatinine [Mass ratio] 26 mg/mg High 10 - 20 [facility] Remisol Capillary Glucose POCon 06-11 Glucose [Mass/Vol] 273 mg/dL High 55-99 [facility] Comment on above: Result Comment: Mary flores RN/ Performed By: #### 2 [id number] ####[facility] [address] [place] [address] Glucose [Mass/Vol] 179 mg/dL High 55-99 [facility] Comment on above: Result Comment: Mary flores RN/ Performed By: #### 2 [id number] ####[facility] [address] [place] [address] Coding Summary.on 06-23-2022 Coding Summary. Normal [facility] Consent for Anesthesiaon Consent for Anesthesia [id number]#1.00CD:127 Normal [facility] Discharge Instructionson Discharge Instructions [id number]#1.00CD:127 Normal [facility] Inpatient Clinical Summaryon 06-23-2022 Inpatient Clinical Summary Normal [facility] Inpatient Patient Summaryon 06-23-2022 Inpatient Patient Summary Normal [facility] Inpatient Patient Summary [facility] Interdisciplinary Note - Virgil e Manageron 06-23-2022 Interdisciplinary Note - Economist Research Assistant [facility] Comment on above: Result Comment: Elec tronically Signed By: Parish HERBERT, Nathan\.domenic\Date and Time Signed: 06/23/22 14:44 EST IntraOperative Documentson 0 06-23-2022 IntraOperative Documents [id number]#1.00CD:127 Normal [facility] Magnesiumon 06-23-2022 Magnesium [Mass/Vol] 2.0 mg/dL Normal 1.3-2.4 [facility] Comment on above: Performed By: #### 2 572806, 9351693, 13814980 ####[address] [place] [address] Main OR PACU I Recordon 06-11 Main OR PACU I Record Normal [facility] Monitor Recordon 06-23-2022 Monitor Record [id number]#1.00CD:127 Normal [facility] Monitor Record [id number]#1.00CD:127 Normal [facility] Monitor Record [id number]#1.00CD:127 Normal [facility] Transfer Documentson 023 Transfer Documents [id number]#1.00CD:127 Normal [facility] XR Chest Single Viewon 06-23 XR Chest Single View Normal [facility] eGFRon 06-23-2022 GFR/1.73 sq M.predicted among blacks MDRD (S/P/Bld) [Vol rate/Area] mL/min/{1.73_m2} Normal >=59 [facility] Comment on above: Order Comment: Order added by Discern Expert. Result Comment: eGFR is race adjusted. AA=. Performed By: #### 2 349115, 7140215, 11286130 ####[facility] [address] [place] [address] GFR/1.73 sq M.predicted among non-blacks MDRD (S/P/Bld) [Vol rate/Area] mL/min/{1.73_m2} Normal >=59 [facility] Comment on above: Order Comment: Order added by Discern Expert. Result Comment: Product Analyst claus kidney disease could be indicated at eGFR's of less than 60 mL/min/1.73m2. Kidney failure is indicated at less than 15 mL/min/1.73m2. Performed By: #### 2 384085, 1175746, 91601826 ####[facility] [address] [place] [address] Auto Diffon 06-22-2022 Basophils/100 WBC (Bld) 0.6 % Normal 0.0-2.0 [facility] Comment on above: Order Comment: Order Added by Discern Expert. Performed By: #### 2 627673, 0574188, 80519823, 9835269 ####[facility] [address] [place] [address] Basophils/Leukocytes Auto (Bld) [Pure # fraction] 0.1 E9/L Normal 0.0-0.2 [facility] Comment on above: Order Comment: Order Added by Discern Expert. Performed By: #### 2 829359, 1616148, 51645141, 1974407 ####[facility] [address] [place] [address] Eosinophils/100 WBC (Bld) 4.1 % Normal 0.0-8.0 [facility] Comment on above: Order Comment: Order Added by Discern Expert. Performed By: #### 2 012689, 1675920, 04883833, 1695889 ####[address] [place] [address] Eosinophils/Leukocyte s Auto (Bld) [Pure # fraction] 0.4 E9/L Normal 0.0-0.5 [facility] Comment on above: Order Comment: Order Added by Discern Expert. Performed By: #### 2 036664, 3942469, 90501777, 6567131 ####[address] [address] Lymphocytes/100 WBC (Bld) 24.3 % Normal 14.0-50.0 [facility] Comment on above: Order Comment: Order Added by Discern Expert. Performed By: #### 2 899331, 6541059, 67812912, 8686287 ####[address] [address] Lymphocytes/Leukocyte s Auto (Bld) [Pure # fraction] 2.3 E9/L Normal 1.0-4.0 [facility] Comment on above: Order Comment: Order Added by Discern Expert. Performed By: #### 2 741678, 2952873, 38634443, 7315503 ####[address] [place] [address] Monocytes/100 WBC (Bld) 10.6 % Normal 4.0-14.0 [facility] Comment on above: Order Comment: Order Added by Discern Expert. Performed By: #### 2 789181, 9462398, 02468543, 1567589 ####[address] [place] [address] Monocytes/Leukocytes Auto (Bld) [Pure # fraction] 1.0 E9/L Normal 0.2-1.0 [facility] Comment on above: Order Comment: Order Added by Discern Expert. Performed By: #### 2 137492, 4326944, 91390068, 8232256 ####[address] [address] Neutrophils/100 WBC (Bld) 60.4 % Normal 36.0-75.0 [facility] Comment on above: Order Comment: Order Added by Discern Expert. Performed By: #### 2 053519, 0718814, 59868965, 2041554 ####[address] [address] Neutrophils/Leukocyte s Auto (Bld) [Pure # fraction] 5.8 E9/L Normal 2.0-7.5 [facility] Comment on above: Order Comment: Order Added by Discern Expert. Performed By: #### 2 338389, 7811671, 18102950, 5368427 ####[address] [place] [address] BMPon 06-22-2022 Anion gap [Moles/Vol] 10 mmol/L Normal 6-16 [facility] Comment on above: Performed By: #### 2 007426, 0009822, 55278229, 0224203 ####[address] [address] Calcium [Mass/Vol] 8.6 mg/dL Low 8.9-11.1 [facility] Comment on above: Performed By: #### 2 197011, 7066277, 58952902, 4287741 ####[address] [place] [address] Chloride [Moles/Vol] 99 mmol/L Low 101-111 [facility] Comment on above: Performed By: #### 2 998717, 4539775, 68691721, 7484046 ####[facility] [address] [place] [address] CO2 [Moles/Vol] 27 mmol/L Normal 21-31 [facility] Comment on above: Performed By: #### 2 625362, 0970432, 22780615, 0218248 ####[facility] [address] [place] [address] Creatinine [Mass/Vol] 1.0 mg/dL Normal 0.5-1.3 [facility] Comment on above: Performed By: #### 2 241440, 4492129, 13587260, 9991645 ####[facility] [address] [place] [address] Glucose [Mass/Vol] 150 mg/dL Normal 55-199 [facility] Comment on above: Result Comment: If t his glucose result represents a fasting glucose, interpretation should refer to the following reference range: 55-99 mg/dL Performed By: #### 2 137189, 3998256, 88216642, 0240673 ####[facility] [address] [place] [address] Potassium [Moles/Vol] 3.6 mmol/L Normal 3.5-5.3 [facility] Comment on above: Performed By: #### 2 906598, 4305191, 87547200, 7479700 ####[facility] [address] [place] [address] Sodium [Moles/Vol] 132 mmol/L Low 135-145 [facility] Comment on above: Performed By: #### 2 333819, 9464945, 67853037, 1617188 ####[facility] [address] [place] [address] Urea nitrogen [Mass/Vol] 23 mg/dL High 5-21 [facility] Comment on above: Performed By: #### 2 520639, 9615937, 47574497, 1189388 ####[facility] [address] [place] [address] Urea nitrogen/Creatinine [Mass ratio] 23 No Units High 10-20 [facility] Comment on above: Performed By: #### 2 059326, 6504895, 95913286, 1861961 ####[facility] [address] [place] [address] CBC w/ Auto Diffon 3 Erythrocyte distribution width (RBC) [Ratio] 16.5 % High 10.9-14.2 [facility] Comment on above: Performed By: #### 2 462497, 3410791, 25297329, 1686987 ####[facility] [address] [place] [address] Hematocrit (Bld) [Volume fraction] 28.8 % Low 37.7-49.0 [facility] Comment on above: Performed By: #### 2 273434, 8248851, 21335319, 8783478 ####[address] [address] Hemoglobin (Bld) [Mass/Vol] 9.5 g/dL Low 13.5-17.5 [facility] Comment on above: Performed By: #### 2 871654, 0535323, 85874546, 9974789 ####[address] [address] MCH (RBC) [Entitic mass] 26.5 pg Low 27.0-34.0 [facility] Comment on above: Performed By: #### 2 942795, 1770374, 43973639, 0361102 ####[address] [address] MCHC (RBC) [Mass/Vol] 33.1 g/dL Normal 31.4-36.0 [facility] Comment on above: Performed By: #### 2 333722, 4456988, 69536100, 5450049 ####[address] [place] [address] MCV (RBC) [Entitic vol] 80.0 fL Normal 80.0-100.0 [facility] Comment on above: Performed By: #### 2 673546, 5253783, 91374136, 8927037 ####[facility] [address] [place] [address] Platelet mean volume (Bld) [Entitic vol] 9.5 fL Normal 6.4-10.8 [facility] Comment on above: Performed By: #### 2 130565, 1493660, 87569664, 6189496 ####[address] [address] Platelets (Bld) [#/Vol] 253.0 E9/L Normal 150.0-500.0 [facility] Comment on above: Performed By: #### 2 339593, 1832754, 94746768, 2214320 ####[address] [address] RBC (Bld) [#/Vol] 3.6 E12/L Low 4.3-5.9 [facility] Comment on above: Performed By: #### 2 997605, 1509893, 26693145, 2981172 ####[address] [address] WBC corrected for nucl RBC Auto (Bld) [#/Vol] 9.5 E9/L Normal 4.0-11.0 [facility] Comment on above: Performed By: #### 2 180414, 9991761, 62185908, 4983494 ####[facility] [address] [place] [address] CHEMISTRYOrdered By: Lab ROP User on 06-22-2022 Glucose [Mass/Vol] 326 mg/dL High 55 - 99 mg/dL [facility] POC Subsection Comment on above: Result Comment: Mary flores RN/ POC Device SN [id number] Invalid Interpretation Code [facility] POC Subsection POC User ID [id number] Invalid Interpretation Code [facility] POC Subsection POC Username PILLO VILLAFUERTE Invalid Interpretation Code [facility] POC Subsection CHEMISTRYOrdered By: SYSTEM SYSTEM on 06-22-2022 Vancomycin trough [Moles/Vol] 16 microgram/mL Normal 10 - 20 mcg/mL [facility] Remisol Anion gap [Moles/Vol] 10 mmol/L Normal 6 - 16 mEq/L [facility] Remisol Calcium [Mass/Vol] 8.6 mg/dL Low 8.9 - 11. 1 mg/dL [facility] Remisol Chloride [Moles/Vol] 99 mmol/L Low 101 - 1 11 mmol/L [facility] Remisol CO2 [Moles/Vol] 27 mmol/L Normal 21 - 31 mmol/L [facility] Remisol Creatinine [Mass/Vol] 1.0 mg/dL Normal 0.5 - 1.3 mg/dL [facility] Remisol GFR/1.73 sq M.predicted among blacks MDRD (S/P/Bld) [Vol rate/Area] mL/min/1.73 m2 Normal >=59mL/min/1 .73 m2 [facility] Chem S GFR/1.73 sq M.predicted among non-blacks MDRD (S/P/Bld) [Vol rate/Area] mL/min/1.73 m2 Normal >=59mL/min/1 .73 m2 [facility] Chem S Glucose [Mass/Vol] 150 mg/dL Normal 55 - 199 mg/dL [facility] Remisol Potassium [Moles/Vol] 3.6 mmol/L Normal 3.5 - 5.3 mmol/L [facility] Remisol Sodium [Moles/Vol] 132 mmol/L Low 135 - 145 mmol/L [facility] Remisol Urea nitrogen [Mass/Vol] 23 mg/dL High 5 - 21 mg/dL [facility] Remisol Urea nitrogen/Creatinine [Mass ratio] 23 mg/mg High 10 - 20 [facility] Remisol Capillary Glucose POCon 06-11 Glucose [Mass/Vol] 326 mg/dL High 55-99 [facility] Comment on above: Result Comment: Mary COLLAZO Performed By: #### 2 [id number] ####[facility] [address] [place] [address] Glucose [Mass/Vol] 197 mg/dL High 55-99 [facility] Comment on above: Result Comment: Mary COLLAZO Performed By: #### 2 [id number] ####[facility] [address] [place] [address] Glucose [Mass/Vol] 327 mg/dL High 55-99 [facility] Comment on above: Result Comment: Mary COLLAZO Performed By: #### 2 [id number] ####[facility] [address] [place] [address] Glucose [Mass/Vol] 169 mg/dL High 55-99 [facility] Comment on above: Result Comment: Mary COLLAZO Performed By: #### 2 [id number] ####[facility] [address] [place] [address] HEMATOLOGYOrdered By: SYSTEM SYSTEM on 06-22-2022 Basophils/100 WBC (Bld) 0.6 % Normal 0.0 - 2.0 % [facility] HemeAutoSS Basophils/Leukocytes Auto (Bld) [Pure # fraction] 0.1 E9/L Normal 0.0 - 0.2 E9/L [facility] HemeAutoSS Eosinophils/100 WBC (Bld) 4.1 % Normal 0.0 - 8.0 % [facility] HemeAutoSS Eosinophils/Leukocyte s Auto (Bld) [Pure # fraction] 0.4 E9/L Normal 0.0 - 0.5 E9/L [facility] HemeAutoSS Lymphocytes/100 WBC (Bld) 24.3 % Normal 14.0 - 50.0 % [facility] [...] 5.8 E9/L Normal 2.0 - 7.5 E9/L [facility] HemeAutoSS HEMATOLOGYOrdered By: Franci Lane on 06-22-2022 Erythrocyte distribution width (RBC) [Ratio] 16.5 % High 10.9 - 14.2 % [facility] HemeAutoSS Hematocrit (Bld) [Volume fraction] 28.8 % Low 37.7 - 49.0 % [facility] HemeAutoSS Hemoglobin (Bld) [Mass/Vol] 9.5 g/dL Low 13.5 - 17.5 gm/dL [facility] HemeAutoSS MCH (RBC) [Entitic mass] 26.5 pg Low 27.0 - 34.0 pg [facility] HemeAutoSS MCHC (RBC) [Mass/Vol] 33.1 g/dL Normal 31.4 - 36.0 gm/dL [facility] HemeAutoSS MCV (RBC) [Entitic vol] 80.0 fL Normal 80.0 - 100.0 fL [facility] HemeAutoSS Platelet mean volume (Bld) [Entitic vol] 9.5 fL Normal 6.4 - 10.8 fL [facility] HemeAutoSS Platelets (Bld) [#/Vol] 253.0 E9/L Normal 150.0 - 500.0 E9/L [facility] HemeAutoSS RBC (Bld) [#/Vol] 3.6 E12/L Low 4.3 - 5.9 E12/L [facility] HemeAutoSS WBC corrected for nucl RBC Auto (Bld) [#/Vol] 9.5 E9/L Normal 4.0 - 11.0 E9/L FT HemeAutoSS Monitor Recordon 06-22-2022 Monitor Record [id number]#[id number]:127 Normal [facility] Progress Note - Pharmacyon 0 06-22-2022 Progress Note - Pharmacy Normal [facility] Progress Note-Physicianon Progress Note-Physician Normal [facility] Comment on above: Result Comment: Elec tronically Signed By: Geovanna GILBERT, Chaitanya Rick\.br\Date and Time Signed: 06/22/22 11:06 EST Vanco Peakon 06-22-2022 VANCOMYCIN 39 microgram/mL Normal 20-40 [facility] Comment on above: Performed By: #### 2 905905 ####[facility] [address] [place] [address] Vanco Troughon 06-22-2022 VANCOMYCIN 16 microgram/mL Normal 10-20 [facility] Comment on above: Performed By: #### 2 320143 ####[facility] [address] [place] [address] eGFRon 06-22-2022 GFR/1.73 sq M.predicted among blacks MDRD (S/P/Bld) [Vol rate/Area] mL/min/{1.73_m2} Normal >=59 [facility] Comment on above: Order Comment: Order added by Discern Expert. Result Comment: eGFR is race adjusted. AA=. Performed By: #### 2 061521, 3023520, 81839795, 9349707 ####[facility] [address] [place] [address] GFR/1.73 sq M.predicted among non-blacks MDRD (S/P/Bld) [Vol rate/Area] mL/min/{1.73_m2} Normal >=59 [facility] Comment on above: Order Comment: Order added by Discern Expert. Result Comment: Product Analyst claus kidney disease could be indicated at eGFR's of less than 60 mL/min/1.73m2. Kidney failure is indicated at less than 15 mL/min/1.73m2. Performed By: #### 2 184671, 7323636, 53973444, 0283563 ####[facility] [address] [place] [address] Auto Diffon 06-21-2022 Basophils/100 WBC (Bld) 0.7 % Normal 0.0-2.0 [facility] Comment on above: Order Comment: Order Added by Discern Expert. Performed By: #### 2 540001, 65590696, 7506241, 4515996 ####[facility] [address] [place] [address] Basophils/Leukocytes Auto (Bld) [Pure # fraction] 0.1 E9/L Normal 0.0-0.2 [facility] Comment on above: Order Comment: Order Added by Discern Expert. Performed By: #### 2 560035, 84322920, 2883985, 5423091 ####[facility] [address] [place] [address] Eosinophils/100 WBC (Bld) 5.5 % Normal 0.0-8.0 [facility] Comment on above: Order Comment: Order Added by Discern Expert. Performed By: #### 2 791067, 10864118, 5823762, 2178922 ####[address] [address] Eosinophils/Leukocyte s Auto (Bld) [Pure # fraction] 0.4 E9/L Normal 0.0-0.5 [facility] Comment on above: Order Comment: Order Added by Discern Expert. Performed By: #### 2 172644, 23099971, 6539833, 6437116 ####[address] [address] Lymphocytes/100 WBC (Bld) 22.0 % Normal 14.0-50.0 [facility] Comment on above: Order Comment: Order Added by Frankie Expert. Performed By: #### 2 109070, 62825965, 6875372, 4067809 ####[address] [address] Lymphocytes/Leukocyte s Auto (Bld) [Pure # fraction] 1.7 E9/L Normal 1.0-4.0 [facility] Comment on above: Order Comment: Order Added by Frankie Expert. Performed By: #### 2 004827, 94486598, 9715451, 0774996 ####[address] [address] Monocytes/100 WBC (Bld) 9.8 % Normal 4.0-14.0 [facility] Comment on above: Order Comment: Order Added by Frankie Expert. Performed By: #### 2 569742, 51689662, 3739918, 5024964 ####[address] [address] Monocytes/Leukocytes Auto (Bld) [Pure # fraction] 0.8 E9/L Normal 0.2-1.0 [facility] Comment on above: Order Comment: Order Added by Frankie Expert. Performed By: #### 2 010283, 54461636, 9656325, 3400958 ####[facility] [address] [place] [address] Neutrophils/100 WBC (Bld) 62.0 % Normal 36.0-75.0 [facility] Comment on above: Order Comment: Order Added by Discern Expert. Performed By: #### 2 264349, 07329495, 3284397, 2062259 ####[facility] [address] [place] [address] Neutrophils/Leukocyte s Auto (Bld) [Pure # fraction] 4.8 E9/L Normal 2.0-7.5 [facility] Comment on above: Order Comment: Order Added by Discern Expert. Performed By: #### 2 209089, 66098087, 8732743, 5831081 ####[facility] [address] [place] [address] BMPon 06-21-2022 Anion gap [Moles/Vol] 11 mmol/L Normal 6-16 [facility] Comment on above: Performed By: #### 2 039549, 02996500, 2759657, 9542918 ####[facility] [address] [place] [address] Calcium [Mass/Vol] 8.5 mg/dL Low 8.9-11.1 [facility] Comment on above: Performed By: #### 2 498861, 16136337, 5534036, 4899736 ####[facility] [address] [place] [address] Chloride [Moles/Vol] 101 mmol/L Normal 101-111 [facility] Comment on above: Performed By: #### 2 784476, 76755853, 7843230, 2656058 ####[facility] [address] [place] [address] CO2 [Moles/Vol] 28 mmol/L Normal 21-31 [facility] Comment on above: Performed By: #### 2 130392, 84240413, 1358965, 6213914 ####[facility] [address] [place] [address] Creatinine [Mass/Vol] 1.1 mg/dL Normal 0.5-1.3 [facility] Comment on above: Performed By: #### 2 321374, 74549754, 9614157, 0537045 ####[facility] [address] [place] [address] Glucose [Mass/Vol] 233 mg/dL High 55-199 [facility] Comment on above: Result Comment: If t his glucose result represents a fasting glucose, interpretation should refer to the following reference range: 55-99 mg/dL Performed By: #### 2 226199, 46045770, 2507753, 4578168 ####[facility] [address] [place] [address] Potassium [Moles/Vol] 3.8 mmol/L Normal 3.5-5.3 [facility] Comment on above: Performed By: #### 2 750014, 52030066, 0513075, 4596450 ####[facility] [address] [place] [address] Sodium [Moles/Vol] 136 mmol/L Normal 135-145 [facility] Comment on above: Performed By: #### 2 812243, 81006258, 7064593, 0847616 ####[facility] [address] [place] [address] Urea nitrogen [Mass/Vol] 24 mg/dL High 5-21 [facility] Comment on above: Performed By: #### 2 962697, 18326049, 4486673, 7579289 ####[facility] [address] [place] [address] Urea nitrogen/Creatinine [Mass ratio] 22 No Units High 10-20 [facility] Comment on above: Performed By: #### 2 361459, 31379260, 9985064, 1880169 ####[facility] [address] [place] [address] CBC w/ Auto Diffon 3 Erythrocyte distribution width (RBC) [Ratio] 16.3 % High 10.9-14.2 [facility] Comment on above: Performed By: #### 2 160213, 65535248, 2346359, 3064477 ####[place] [address] Hematocrit (Bld) [Volume fraction] 29.4 % Low 37.7-49.0 [facility] Comment on above: Performed By: #### 2 986633, 39438958, 6287488, 6989316 ####[place] [address] Hemoglobin (Bld) [Mass/Vol] 9.6 g/dL Low 13.5-17.5 [facility] Comment on above: Performed By: #### 2 155697, 58247092, 5918177, 3150580 ####[place] [address] MCH (RBC) [Entitic mass] 26.0 pg Low 27.0-34.0 [facility] Comment on above: Performed By: #### 2 843567, 89344220, 0397586, 3554839 ####[address] [address] MCHC (RBC) [Mass/Vol] 32.5 g/dL Normal 31.4-36.0 [facility] Comment on above: Performed By: #### 2 807904, 12139329, 3042217, 5813896 ####[place] [address] MCV (RBC) [Entitic vol] 79.9 fL Low 80.0-100.0 [facility] Comment on above: Performed By: #### 2 383259, 81537780, 0570083, 4107369 ####[address] [address] Platelet mean volume (Bld) [Entitic vol] 9.1 fL Normal 6.4-10.8 [facility] Comment on above: Performed By: #### 2 229055, 15818012, 0764770, 3531023 ####[facility] [address] [place] [address] Platelets (Bld) [#/Vol] 239.0 E9/L Normal 150.0-500.0 [facility] Comment on above: Performed By: #### 2 417793, 57875094, 3234748, 9162950 ####[facility] [address] [place] [address] RBC (Bld) [#/Vol] 3.7 E12/L Low 4.3-5.9 [facility] Comment on above: Performed By: #### 2 820304, 25214362, 4622085, 4168616 ####[facility] [address] [place] [address] WBC corrected for nucl RBC Auto (Bld) [#/Vol] 7.7 E9/L Normal 4.0-11.0 [facility] Comment on above: Performed By: #### 2 533206, 91161357, 2817190, 4022487 ####[facility] [address] [place] [address] CHEMISTRYOrdered By: SYSTEM SYSTEM on 06-21-2022 Vancomycin peak [Moles/Vol] 39 microgram/mL Normal 20 - 40 mcg/mL [facility] Remisol Anion gap [Moles/Vol] 11 mmol/L Normal 6 - 16 mEq/L [facility] Remisol Calcium [Mass/Vol] 8.5 mg/dL Low 8.9 - 11. 1 mg/dL [facility] Remisol Chloride [Moles/Vol] 101 mmol/L Normal 101 - 1 11 mmol/L [facility] CO2 [Moles/Vol] 28 mmol/L Normal 21 - 31 mmol/L [facility] Remisol Creatinine [Mass/Vol] 1.1 mg/dL Normal 0.5 - 1.3 mg/dL [facility] Remisol GFR/1.73 sq M.predicted among blacks MDRD (S/P/Bld) [Vol rate/Area] mL/min/1.73 m2 Normal >=59mL/min/1 .73 m2 FT Chem S GFR/1.73 sq M.predicted among non-blacks MDRD (S/P/Bld) [Vol rate/Area] mL/min/1.73 m2 Normal >=59mL/min/1 .73 m2 [facility] Chem S Glucose [Mass/Vol] 233 mg/dL High 55 - 199 mg/dL [facility] Remisol Potassium [Moles/Vol] 3.8 mmol/L Normal 3.5 - 5.3 mmol/L [facility] Remisol Sodium [Moles/Vol] 136 mmol/L Normal 135 - 145 mmol/L [facility] Remisol Urea nitrogen [Mass/Vol] 24 mg/dL High 5 - 21 mg/dL [facility] Remisol Urea nitrogen/Creatinine [Mass ratio] 22 mg/mg High 10 - 20 [facility] Remisol Capillary Glucose POCon 06-11 Glucose [Mass/Vol] 252 mg/dL High 55-99 [facility] Comment on above: Result Comment: Mary COLLAZO Performed By: #### 2 07931074 ####[facility] [address] [place] [address] Glucose [Mass/Vol] 323 mg/dL High 55-99 [facility] Comment on above: Result Comment: Mary COLLAZO Performed By: #### 2 81770832 ####[facility] [address] [place] [address] Glucose [Mass/Vol] 256 mg/dL High 55-99 [facility] Comment on above: Performed By: #### 2 89217232 ####[facility] [address] [place] [address] Glucose [Mass/Vol] 198 mg/dL High 55-99 [facility] Comment on above: Result Comment: Mary COLLAZO Performed By: #### 2 73229804 ####[facility] [address] [place] [address] HEMATOLOGYOrdered By: SYSTEM SYSTEM on 06-21-2022 Basophils/100 WBC (Bld) 0.7 % Normal 0.0 - 2.0 % [facility] HemeAutoSS Basophils/Leukocytes Auto (Bld) [Pure # fraction] [...] 3.7 E12/L Low 4.3 - 5.9 E12/L [facility] HemeAutoSS WBC corrected for nucl RBC Auto (Bld) [#/Vol] 7.7 E9/L Normal 4.0 - 11.0 E9/L [facility] HemeAutoSS Interdisciplinary Note - Nut ritionon 06-21-2022 Interdisciplinary Note - Nutrition Normal [facility] Comment on above: Result Comment: Elec tronically Signed By: Naga MS, RDN, LD, Tierney K\.br\Date and Time Signed: 06/21/22 13:22 EST Monitor Recordon 06-21-2022 Monitor Record [id number]:127 Normal [facility] Progress Note-Physicianon Progress Note-Physician Normal [facility] Comment on above: Result Comment: Elec tronically Signed By: Geovanna GILBERT, Chaitanya Rick\.br\Date and Time Signed: 06/21/22 13:59 EST eGFRon 06-21-2022 GFR/1.73 sq M.predicted among blacks MDRD (S/P/Bld) [Vol rate/Area] mL/min/{1.73_m2} Normal >=59 [facility] Comment on above: Order Comment: Order added by Discern Expert. Result Comment: eGFR is race adjusted. AA=. Performed By: #### 2 743808, 47393548, 7193088, 4753124 ####[facility] [address] [place] [address] GFR/1.73 sq M.predicted among non-blacks MDRD (S/P/Bld) [Vol rate/Area] mL/min/{1.73_m2} Normal >=59 [facility] Comment on above: Order Comment: Order added by Discern Expert. Result Comment: Product Analyst claus kidney disease could be indicated at eGFR's of less than 60 mL/min/1.73m2. Kidney failure is indicated at less than 15 mL/min/1.73m2. Performed By: #### 2 956719, 59599594, 2846660, 2721070 ####[facility] [address] [place] [address] Auto Diffon 06-20-2022 Basophils/100 WBC (Bld) 0.6 % Normal 0.0-2.0 [facility] Comment on above: Order Comment: Order Added by Discern Expert. Performed By: #### 2 668460, 0244441, 6266941, 87604831, 7860175, 9562918, 8606834 ####[place] [address] [place] [address] Basophils/Leukocytes Auto (Bld) [Pure # fraction] 0.0 E9/L Normal 0.0-0.2 [facility] Comment on above: Order Comment: Order Added by Discern Expert. Performed By: #### 2 944658, 4787559, 1199063, 28346520, 2558548, 4018114, 2710034 ####[place] [place] [address] Eosinophils/100 WBC (Bld) 6.7 % Normal 0.0-8.0 [facility] Comment on above: Order Comment: Order Added by Discern Expert. Performed By: #### 2 567027, 3676039, 3087389, 66968022, 8858060, 7249414, 0272359 ####[place] [place] [address] Eosinophils/Leukocyte s Auto (Bld) [Pure # fraction] 0.4 E9/L Normal 0.0-0.5 [facility] Comment on above: Order Comment: Order Added by Discern Expert. Performed By: #### 2 471863, 9229639, 0125133, 13109763, 1606528, 1323019, 7930692 ####[address] [address] Lymphocytes/100 WBC (Bld) 29.2 % Normal 14.0-50.0 [facility] Comment on above: Order Comment: Order Added by Discern Expert. Performed By: #### 2 448525, 7367054, 3960257, 04679657, 2268695, 3797845, 2369997 ####[place] [place] [address] Lymphocytes/Leukocyte s Auto (Bld) [Pure # fraction] 2.0 E9/L Normal 1.0-4.0 [facility] Comment on above: Order Comment: Order Added by Discern Expert. Performed By: #### 2 705836, 2711197, 7123643, 31772103, 3992843, 1218117, 9970932 ####[place] [place] [address] Monocytes/100 WBC (Bld) 9.4 % Normal 4.0-14.0 [facility] Comment on above: Order Comment: Order Added by Discern Expert. Performed By: #### 2 228662, 8953482, 1204113, 67502337, 4875812, 0754424, 6137719 ####[address] [address] Monocytes/Leukocytes Auto (Bld) [Pure # fraction] 0.6 E9/L Normal 0.2-1.0 [facility] Comment on above: Order Comment: Order Added by Discern Expert. Performed By: #### 2 173619, 0518844, 1379480, 10298594, 4276605, 6024821, 4280130 ####[address] [address] Neutrophils/100 WBC (Bld) 54.1 % Normal 36.0-75.0 [facility] Comment on above: Order Comment: Order Added by Discern Expert. Performed By: #### 2 773390, 7680414, 5562081, 09449758, 1937760, 0500056, 7605385 ####[address] [address] Neutrophils/Leukocyte s Auto (Bld) [Pure # fraction] 3.6 E9/L Normal 2.0-7.5 [facility] Comment on above: Order Comment: Order Added by Discern Expert. Performed By: #### 2 099865, 4005719, 6930528, 90273892, 9000351, 9310954, 5339470 ####[facility] [address] [place] [address] BMPon 06-20-2022 Anion gap [Moles/Vol] 11 mmol/L Normal 6-16 [facility] Comment on above: Performed By: #### 2 870565, 9253421, 0441375, 45540392, 4953438, 9060645, 6686210 ####[facility] [address] [place] [address] Calcium [Mass/Vol] 8.5 mg/dL Low 8.9-11.1 [facility] Comment on above: Performed By: #### 2 844341, 7490416, 3932108, 27135632, 6938084, 0180571, 9766390 ####[facility] [address] [place] [address] Chloride [Moles/Vol] 101 mmol/L Normal 101-111 [facility] Comment on above: Performed By: #### 2 165668, 9423571, 9839614, 28785898, 5325286, 5589151, 5380155 ####[facility] [address] [place] [address] CO2 [Moles/Vol] 26 mmol/L Normal 21-31 [facility] Comment on above: Performed By: #### 2 696727, 4823804, 1331431, 41617297, 8253184, 8130650, 7981542 ####[facility] [address] [place] [address] Creatinine [Mass/Vol] 1.1 mg/dL Normal 0.5-1.3 [facility] Comment on above: Performed By: #### 2 461287, 0643009, 2581619, 64643835, 3518401, 7880680, 9948938 ####[facility] [address] [place] [address] Glucose [Mass/Vol] 221 mg/dL High 55-199 [facility] Comment on above: Result Comment: If t his glucose result represents a fasting glucose, interpretation should refer to the following reference range: 55-99 mg/dL Performed By: #### 2 348245, 1707541, 9378353, 22868390, 2939719, 8937331, 4508676 ####[facility] [address] [place] [address] Potassium [Moles/Vol] 3.8 mmol/L Normal 3.5-5.3 [facility] Comment on above: Performed By: #### 2 189996, 5509005, 6021124, 87997566, 9076574, 3604126, 2496620 ####[facility] [address] [place] [address] Sodium [Moles/Vol] 134 mmol/L Low 135-145 [facility] Comment on above: Performed By: #### 2 406633, 0468154, 3584432, 48721271, 9739364, 1374041, 7543078 ####[facility] [address] [place] [address] Urea nitrogen [Mass/Vol] 26 mg/dL High 5-21 [facility] Comment on above: Performed By: #### 2 055975, 4745018, 7236157, 62604575, 0061622, 3218470, 5894483 ####[facility] [address] [place] [address] Urea nitrogen/Creatinine [Mass ratio] 24 No Units High 10-20 [facility] Comment on above: Performed By: #### 2 666746, 7170536, 6969114, 59832841, 4300859, 9942284, 1222687 ####[facility] [address] [place] [address] CBC w/ Auto Diffon 3 Erythrocyte distribution width (RBC) [Ratio] 16.5 % High 10.9-14.2 [facility] Comment on above: Performed By: #### 2 695636, 8990421, 1899601, 07294537, 7919817, 1468020, 5294955 ####[facility] [address] [place] [address] Hematocrit (Bld) [Volume fraction] 31.6 % Low 37.7-49.0 [facility] Comment on above: Performed By: #### 2 650293, 8962581, 5520864, 38412309, 7248888, 3051137, 2313297 ####[facility] [address] [place] [address] Hemoglobin (Bld) [Mass/Vol] 9.9 g/dL Low 13.5-17.5 [facility] Comment on above: Performed By: #### 2 947765, 8546554, 3992084, 60872837, 6023620, 3987423, 8623270 ####[place] [place] [address] MCH (RBC) [Entitic mass] 25.6 pg Low 27.0-34.0 [facility] Comment on above: Performed By: #### 2 296734, 7044991, 1472818, 37405291, 5063679, 3591810, 5485041 ####[facility] [address] [place] [address] MCHC (RBC) [Mass/Vol] 31.5 g/dL Normal 31.4-36.0 [facility] Comment on above: Performed By: #### 2 128135, 6263058, 6541689, 71621720, 7545122, 3440666, 4654077 ####[facility] [address] [place] [address] MCV (RBC) [Entitic vol] 81.4 fL Normal 80.0-100.0 [facility] Comment on above: Performed By: #### 2 340043, 4695341, 0668565, 57657476, 3089042, 0505931, 0207415 ####[facility] [address] [place] [address] Platelet mean volume (Bld) [Entitic vol] 8.8 fL Normal 6.4-10.8 [facility] Comment on above: Performed By: #### 2 718888, 2396855, 3314847, 89674665, 7521557, 3507878, 2027506 ####[facility] [address] [place] [address] Platelets (Bld) [#/Vol] 216.0 E9/L Normal 150.0-500.0 [facility] Comment on above: Performed By: #### 2 164258, 6970029, 6455729, 71193156, 1170167, 9826693, 0700861 ####[facility] [address] [place] [address] RBC (Bld) [#/Vol] 3.9 E12/L Low 4.3-5.9 [facility] Comment on above: Performed By: #### 2 160950, 0398194, 4839102, 98678015, 1457138, 1065520, 5923218 ####[facility] [address] [place] [address] WBC corrected for nucl RBC Auto (Bld) [#/Vol] 6.7 E9/L Normal 4.0-11.0 [facility] Comment on above: Performed By: #### 2 850721, 5835733, 3552019, 95853854, 9325325, 2245291, 7300927 ####[facility] [address] [place] [address] CHEMISTRYOrdered By: SYSTEM SYSTEM on 06-20-2022 Vancomycin trough [Moles/Vol] 19 microgram/mL Normal 10 - 20 mcg/mL [facility] Remisol Magnesium [Mass/Vol] 1.9 mg/dL Normal 1.3 - 2 .4 mg/dL [facility] Remisol Phosphate [Mass/Vol] 4.1 mg/dL Normal 1.9 - 4 .6 mg/dL [facility] Remisol Vancomycin peak [Moles/Vol] 39 microgram/mL Normal 20 - 40 mcg/mL [facility] Remisol Capillary Glucose POCon 06-11 Glucose [Mass/Vol] 249 mg/dL High 55-99 [facility] Comment on above: Result Comment: Noti fied RN/ Performed By: #### 2 85960409 ####[facility] [address] [place] [address] Glucose [Mass/Vol] 219 mg/dL High 55-99 [facility] Comment on above: Result Comment: Mary flores RN/ Performed By: #### 2 56823540 ####[facility] [address] [place] [address] Glucose [Mass/Vol] 226 mg/dL High 55-99 [facility] Comment on above: Result Comment: Katty todd Meter Performed By: #### 2 37417151 ####[facility] [address] [place] [address] Glucose [Mass/Vol] 227 mg/dL High [address] [place] [address] Comment on above: Result Comment: Mary flores RN/ Performed By: #### 2 36460828 ####[facility] [address] [place] [address] Glucose [Mass/Vol] 193 mg/dL High 55[address] [place] [address] Comment on above: Result Comment: Mary COLLAZO Performed By: #### 2 34369805 ####[facility] [address] [place] [address] Consent for Procedure/Surger yon 06-20-2022 Consent for Procedure/Surgery [id number]:127 Normal [facility] Consultation Noteon 06-20-19 Consultation Note Normal [facility] Comment on above: Result Comment: Elec tronically Signed By: Ronaldo Arcos M.D\.br\Date and Time Signed: 06/20/22 09:33 EST ED Note-Physicianon 06-20-19 ED Note-Physician Normal [facility] Comment on above: Result Comment: Elec tronically Signed By: Jabier Martin PA-C\Date and Time Signed: 06/18/22 20:25 EST\.br\Electronically Co-Signed By: Dennys Merida, Astrit H\.br\Date and Time Co-Signed: 06/20/22 09:51 EST HEMATOLOGYOrdered [...] 2.0 E9/L Normal 1.0 - 4.0 E9/L [facility] HemeAutoSS Monocytes/100 WBC (Bld) 9.4 % Normal 4.0 - 14.0 % [facility] HemeAutoSS Monocytes/Leukocytes Auto (Bld) [Pure # fraction] 0.6 E9/L Normal 0.2 - 1.0 E9/L [facility] HemeAutoSS Neutrophils/100 WBC (Bld) 54.1 % Normal 36.0 - 75.0 % [facility] HemeAutoSS Neutrophils/Leukocyte s Auto (Bld) [Pure # fraction] 3.6 E9/L Normal 2.0 - 7.5 E9/L [facility] HemeAutoSS Hct & Hgbon 06-20-2022 Hematocrit (Bld) [Volume fraction] 33.3 % Low 37.7-49.0 [facility] Comment on above: Order Comment: Patie nt not in room, Patient is in surgery. [id number] 06/20/2022 15:56:39 EST Performed By: #### 1 6626929 ####[facility] [address] [place] [address] Hemoglobin (Bld) [Mass/Vol] 10.6 g/dL Low 13.5-17.5 [facility] Comment on above: Order Comment: Patie nt not in room, Patient is in surgery. [id number] 06/20/2022 15:56:39 EST Performed By: #### 1 2803104 ####[facility] [address] [place] [address] Interdisciplinary Note - Virgil e Manageron 06-20-2022 Interdisciplinary Note - Economist Research Assistant Normal [facility] Comment on above: Result Comment: Elec tronically Signed By: Parish HERBERT, Nathan\.domenic\Date and Time Signed: 06/20/22 12:18 EST LINEZOLID:SUSC:PT:ISOLATE:OR DQN:MICOrdered By: Margret Ambriz on 06-20-2022 Linezolid ERYN [Susc] Scant growth of Staphylococcus simulans Scant growth of Gram Positive Rods resembling diphtheroids [facility] Linezolid ERNY [Susc]Ordered By: Margret Ambriz on 06-20-2022 GS Rare White Blood Hortencia ls No organisms seen. [facility] Staphylococcus simulans Staphylococcus simulans [facility] Magnesiumon 06-20-2022 Magnesium [Mass/Vol] 1.9 mg/dL Normal 1.3-2.4 [facility] Comment on above: Performed By: #### 2 240612, 3883871, 7858699, 77097073, 6968717, 4904067, 7967775 ####[facility] [address] [place] [address] Main OR Preoperative Recordo n 06-20-2022 Main OR Preoperative Record Normal [facility] Monitor Recordon 06-20-2022 Monitor Record [id number]:127 Normal [facility] Monitor Record [id number]:127 Normal [facility] Monitor Record [id number]:127 Normal [facility] Monitor Record [id number]:127 Normal [facility] Operative Reporton Operative Report Normal [facility] Comment on above: Result Comment: Elec tronically Signed By: Santos Epperson DPM\.br\Date and Time Signed: 06/20/22 15:49 EST PTTon 06-20-2022 aPTT Coag (PPP) [Time] 34.2 second(s) Normal 25.1-36.5 [facility] Comment on above: Result Comment: Para [...] the same coagulation reagent and instrumentation as [facility]. Currently there are no coagulation studies available worldwide for children to 14 days, and no normal ranges. Heparin therapeutic range (represented by Anti-Factor Xa activity of 0.2 - 0.4 U/mL) corresponds to PTT of 56.6 - 109.0 sec. Performed By: #### 2 617715 ####[facility] [address] [place] [address] Phosphoruson 06-20-2022 Phosphate [Mass/Vol] 4.1 mg/dL Normal 1.9-4.6 [facility] Comment on above: Performed By: #### 2 275084, 4998732, 4947719, 95634504, 8626316, 0064570, 4307046 ####[facility] [address] [place] [address] Progress Note - Pharmacyon 0 06-20-2022 Progress Note - Pharmacy Normal [facility] Progress Note-Nurseon 2022 Progress Note-Nurse 06/20/2022 0117 Heparin gtt was turned off at 0117. Normal [facility] Progress Note-Physicianon Progress Note-Physician [facility] Comment on above: Result Comment: Elec tronically Signed By: Irineo Gonzalez Jr., DO\.br\Date and Time Signed: 06/20/22 16:58 EST Progress Note-Physician [facility] Comment on above: Result Comment: Elec tronically Signed By: Irineo Gonzalez Jr., DO\.br\Date and Time Signed: 06/20/22 13:20 EST Progress Note-Physician [facility] Comment on above: Result Comment: Elec tronically Signed By: Chaitanya Austin MD\.br\Date and Time Signed: 06/20/22 11:54 EST Progress Note-Physician [facility] Comment on above: Result Comment: Elec tronically Signed By: Chaitanya Austin MD\.br\Date and Time Signed: 06/20/22 07:24 EST Vanco Peakon 06-20-2022 VANCOMYCIN 39 microgram/mL Normal 20-40 [facility] Comment on above: Order Comment: Ehsanashtyn crowley drawn Vancomycin Peak 1 hour after the completion of the 0300 dose on 06/20/22. Thank you.Per RN Ilana dose supposed to start at 0300 and takes 90 mins. Draw between 6242-7108...mmf 06/20/2022 02:23:17 EST Performed By: #### 2 692558, 3561708, 5595306, 66771264, 0849773, 5623285, 7122614 ####[facility] [address] [place] [address] Vanco Troughon 06-20-2022 VANCOMYCIN 19 microgram/mL Normal 10-20 [facility] Comment on above: Order Comment: NOTE: Trough is scheduled 1 hour prior to next dose. Thank you.Pt is in surgery. [id number] 06/20/2022 13:53:46 ESTPt still in surgery. [id number] 06/20/2022 14:53:24 EST Performed By: #### 2 273779 ####[facility] [address] [place] [address] eGFRon 06-20-2022 GFR/1.73 sq M.predicted among blacks MDRD (S/P/Bld) [Vol rate/Area] mL/min/{1.73_m2} Normal >=59 [facility] Comment on above: Order Comment: Order added by Discern Expert. Result Comment: eGFR is race adjusted. AA=. Performed By: #### 2 008655, 4572640, 2025704, 45738920, 5763552, 5059470, 8408866 ####[facility] [address] [place] [address] GFR/1.73 sq M.predicted among non-blacks MDRD (S/P/Bld) [Vol rate/Area] mL/min/{1.73_m2} Normal >=59 [facility] Comment on above: Order Comment: Order added by Discern Expert. Result Comment: Product Analyst claus kidney disease could be indicated at eGFR's of less than 60 mL/min/1.73m2. Kidney failure is indicated at less than 15 mL/min/1.73m2. Performed By: #### 2 514953, 5891265, 6671574, 90291618, 9481160, 2699430, 9389006 ####[facility] [address] [place] [address] BMPon 06-19-2022 Anion gap [Moles/Vol] 9 mmol/L Normal 6-16 [facility] Comment on above: Performed By: #### 2 723325, 39441599, 4715266 ####[facility] [address] [place] [address] Calcium [Mass/Vol] 8.7 mg/dL Low 8.9-11.1 [facility] Comment on above: Performed By: #### 2 378479, 17127727, 7382687 ####[facility] [address] [place] [address] Chloride [Moles/Vol] 103 mmol/L Normal 101-111 [facility] Comment on above: Performed By: #### 2 496919, 12848765, 6566286 ####[facility] [address] [place] [address] CO2 [Moles/Vol] 26 mmol/L Normal 21-31 [facility] Comment on above: Performed By: #### 2 093896, 60591456, 3491871 ####[facility] [address] [place] [address] Creatinine [Mass/Vol] 0.9 mg/dL Normal 0.5-1.3 [facility] Comment on above: Performed By: #### 2 510171, 11832874, 8613036 ####[facility] [address] [place] [address] Glucose [Mass/Vol] 205 mg/dL High 55-199 [facility] Comment on above: Result Comment: If t his glucose result represents a fasting glucose, interpretation should refer to the following reference range: 55-99 mg/dL Performed By: #### 2 585302, 45159203, 5350077 ####[facility] [address] [place] [address] Potassium [Moles/Vol] 4.2 mmol/L Normal 3.5-5.3 [facility] Comment on above: Performed By: #### 2 025859, 82590772, 3780632 ####[facility] [address] [place] [address] Sodium [Moles/Vol] 134 mmol/L Low 135-145 [facility] Comment on above: Performed By: #### 2 219696, 75480449, 4500097 ####[facility] [address] [place] [address] Urea nitrogen [Mass/Vol] 21 mg/dL Normal 5-21 [facility] Comment on above: Performed By: #### 2 804343, 49322963, 4819841 ####[facility] [address] [place] [address] Urea nitrogen/Creatinine [Mass ratio] 23 No Units High 10-20 [facility] Comment on above: Performed By: #### 2 289473, 67846589, 9698621 ####[facility] [address] [place] [address] CHEMISTRYOrdered By: SYSTEM SYSTEM on 06-19-2022 Magnesium [Mass/Vol] 2.3 mg/dL Normal 1.3 - 2 .4 mg/dL [facility] Remisol COAGULATIONOrdered By: Tomy Medrano on 06-19-2022 aPTT Coag (PPP) [Time] 34.2 s Normal 25.1 - 36.5 second(s) [facility] Auto Coag Capillary Glucose POCon Glucose [Mass/Vol] 244 mg/dL High 55-99 [facility] Comment on above: Result Comment: Mary flores RN/ Performed By: #### 2 [id number] ####[facility] [address] [place] [address] Glucose [Mass/Vol] 251 mg/dL High 55-99 [facility] Comment on above: Result Comment: Mary flores RN/ Performed By: #### 2 55381317 ####[facility] [address] [place] [address] Glucose [Mass/Vol] 241 mg/dL High 55-99 [facility] Comment on above: Result Comment: Mary flores RN/ Performed By: #### 2 14427299 ####[facility] [address] [place] [address] Glucose [Mass/Vol] 188 mg/dL High 55-99 [facility] Comment on above: Result Comment: Mary flores RN/ Performed By: #### 2 08400611 ####[facility] [address] [place] [address] Consultation Noteon 06-19-19 Consultation Note Normal [facility] Comment on above: Result Comment: Elec tronically Signed By: Santos Epperson DPM\.br\Date and Time Signed: 06/19/22 08:34 EST Interdisciplinary Note - Virgil e Manageron 06-19-2022 Interdisciplinary Note - Economist Research Assistant [facility] Comment on above: Result Comment: Elec tronically Signed By: Nathan Lugo RN\.br\Date and Time Signed: 06/19/22 10:02 EST Interdisciplinary Note - PTo n 06-19-2022 Interdisciplinary Note - PT Order received and chart reviewed. Will Hold PT services as pt scheduled to have surgery this Thursday. Will hold and attempt after surgery Normal [facility] Interdisciplinary Note - PT Order received and chart reviewed. Will Hold PT services as pt scheduled to have surgery this Thursday. Will hold and attempt after surgery Normal [facility] Magnesiumon 06-19-2022 Magnesium [Mass/Vol] 2.3 mg/dL Normal 1.3-2.4 [facility] Comment on above: Performed By: #### 2 679355, 98002796, 2292702 ####[facility] [address] [place] [address] Message from Medicareon Message from Medicare [id number]#1.00CD:127 Normal [facility] Monitor Recordon 06-19-2022 Monitor Record [id number]#1.00CD:127 Normal [facility] Monitor Record [id number]#1.00CD:127 Normal [facility] Monitor Record [id number]#1.00CD:127 Normal [facility] Monitor Record [id number]#1.00CD:127 [facility] Nursing Assessment - Woundon 06-19-2022 Nursing Assessment - Wound [id number]#1.00CD:127 [facility] Nursing Note - Woundon 06-19 Nursing Note - Wound [id number]#1.00CD:127 Normal [facility] eGFRon 06-19-2022 GFR/1.73 sq M.predicted among blacks MDRD (S/P/Bld) [Vol rate/Area] mL/min/{1.73_m2} Normal >=59 [facility] Comment on above: Order Comment: Order added by Discern Expert. Result Comment: eGFR is race adjusted. AA=. Performed By: #### 2 638431, 82532442, 6480572 ####[facility] [address] [place] [address] GFR/1.73 sq M.predicted among non-blacks MDRD (S/P/Bld) [Vol rate/Area] mL/min/{1.73_m2} Normal >=59 [facility] Comment on above: Order Comment: Order added by Discern Expert. Result Comment: Product Analyst claus kidney disease could be indicated at eGFR's of less than 60 mL/min/1.73m2. Kidney failure is indicated at less than 15 mL/min/1.73m2. Performed By: #### 2 766099, 16249226, 5937014 ####[facility] [address] [place] [address] Auto Diffon 06-18-2022 Basophils/100 WBC (Bld) 0.6 % Normal 0.0-2.0 [facility] Comment on above: Order Comment: Order Added by Discern Expert. Performed By: #### 2 662373, 8473043, 7460799, 6337585, 19179140, 41973715, 3362503, 88904615, 62878497, 9396162, 6214479 ####[address] [place] [address] Basophils/Leukocytes Auto (Bld) [Pure # fraction] 0.1 E9/L Normal 0.0-0.2 [facility] Comment on above: Order Comment: Order Added by Discern Expert. Performed By: #### 2 850730, 7829542, 2254732, 6196811, 01370291, 67620791, 3289090, 48466882, 35443833, 4278124, 2190639 ####[address] [place] [address] Eosinophils/100 WBC (Bld) 2.2 % Normal 0.0-8.0 [facility] Comment on above: Order Comment: Order Added by Discern Expert. Performed By: #### 2 104326, 7343702, 9836701, 2636788, 70909510, 64576104, 2807104, 89359194, 21036535, 6931917, 8794377 ####[facility] [address] [place] [address] Eosinophils/Leukocyte s Auto (Bld) [Pure # fraction] 0.2 E9/L Normal 0.0-0.5 [facility] Comment on above: Order Comment: Order Added by Discern Expert. Performed By: #### 2 061952, 1960003, 1603831, 8321862, 69247949, 44711478, 3766267, 99357326, 00262850, 5165602, 7885454 ####[facility] [address] [place] [address] Lymphocytes/100 WBC (Bld) 17.7 % Normal 14.0-50.0 [facility] Comment on above: Order Comment: Order Added by Discern Expert. Performed By: #### 2 196882, 3160557, 1413309, 2281594, 63629650, 00468331, 4345014, 31968404, 85986792, 3961288, 1489197 ####[address] [place] [address] Lymphocytes/Leukocyte s Auto (Bld) [Pure # fraction] 1.6 E9/L Normal 1.0-4.0 [facility] Comment on above: Order Comment: Order Added by Discern Expert. Performed By: #### 2 939961, 0560796, 9034043, 1208045, 07101529, 39163332, 1781556, 70782221, 04957893, 7900711, 1970193 ####[address] [address] Monocytes/100 WBC (Bld) 8.3 % Normal 4.0-14.0 [facility] Comment on above: Order Comment: Order Added by Discern Expert. Performed By: #### 2 601776, 7607111, 6521676, 5014533, 43682296, 01972863, 7503615, 43170621, 32989017, 7287124, 8875962 ####[address] [place] [address] Monocytes/Leukocytes Auto (Bld) [Pure # fraction] 0.7 E9/L Normal 0.2-1.0 [facility] Comment on above: Order Comment: Order Added by Discern Expert. Performed By: #### 2 067634, 2556287, 2198776, 1455128, 87034254, 85873748, 8304949, 16310774, 55064164, 7743840, 6639440 ####[address] [place] [address] Neutrophils/100 WBC (Bld) 71.2 % Normal 36.0-75.0 [facility] Comment on above: Order Comment: Order Added by Discern Expert. Performed By: #### 2 137285, 7128611, 8946989, 2189057, 15502000, 04122598, 0547813, 13512856, 69963479, 6084583, 5932371 ####[facility] [address] [place] [address] Neutrophils/Leukocyte s Auto (Bld) [Pure # fraction] 6.4 E9/L Normal 2.0-7.5 [facility] Comment on above: Order Comment: Order Added by Discern Expert. Performed By: #### 2 521969, 6382318, 1919441, 1573985, 26110681, 27323703, 4736099, 38601145, 63788691, 7431171, 6507845 ####[facility] [address] [place] [address] CBC w/ Auto Diffon 3 Erythrocyte distribution width (RBC) [Ratio] 16.7 % High 10.9-14.2 [facility] Comment on above: Performed By: #### 2 961514, 4315548, 5566429, 8881015, 74998520, 72854599, 6686736, 04314177, 37668504, 5003637, 7613390 ####[facility] [address] [place] [address] Hematocrit (Bld) [Volume fraction] 33.9 % Low 37.7-49.0 [facility] Comment on above: Performed By: #### 2 171875, 8069529, 4630031, 5680237, 01475972, 93938943, 8651756, 89326312, 92341657, 1091296, 7186350 ####[facility] [address] [place] [address] Hemoglobin (Bld) [Mass/Vol] 11.0 g/dL Low 13.5-17.5 [facility] Comment on above: Performed By: #### 2 098599, 6262419, 6387258, 1004010, 37098451, 77438157, 1275386, 13649640, 86403050, 6928949, 3612313 ####[facility] [address] [place] [address] MCH (RBC) [Entitic mass] 26.3 pg Low 27.0-34.0 [facility] Comment on above: Performed By: #### 2 861923, 1910454, 8318620, 4594513, 28586689, 34035025, 1752896, 88652248, 19118393, 3438159, 3919343 ####[address] [address] MCHC (RBC) [Mass/Vol] 32.3 g/dL Normal 31.4-36.0 [facility] Comment on above: Performed By: #### 2 404015, 0701238, 7956647, 9719457, 89999779, 56399284, 3818570, 59461635, 67137685, 3406776, 1915315 ####[address] [address] MCV (RBC) [Entitic vol] 81.5 fL Normal 80.0-100.0 [facility] Comment on above: Performed By: #### 2 154601, 7157908, 4493829, 2171626, 01660357, 28609534, 5987229, 88637177, 76003639, 9636325, 6679239 ####[facility] [address] [place] [address] Platelet mean volume (Bld) [Entitic vol] 9.2 fL Normal 6.4-10.8 [facility] Comment on above: Performed By: #### 2 434342, 7214234, 2863947, 7297192, 68432448, 40847170, 0376360, 11530655, 26998531, 1315420, 7896813 ####[facility] [address] [place] [address] Platelets (Bld) [#/Vol] 209.0 E9/L Normal 150.0-500.0 [facility] Comment on above: Performed By: #### 2 763807, 5573335, 3567198, 8351702, 58340822, 69935564, 3634262, 90236263, 24395391, 5837658, 2143414 ####[facility] [address] [place] [address] RBC (Bld) [#/Vol] 4.2 E12/L Low 4.3-5.9 [facility] Comment on above: Performed By: #### 2 834254, 1086332, 9269682, 5548373, 56853189, 74641571, 0655662, 99160179, 10283468, 5349914, 5134698 ####[facility] [address] [place] [address] WBC corrected for nucl RBC Auto (Bld) [#/Vol] 8.9 E9/L Normal 4.0-11.0 [facility] Comment on above: Performed By: #### 2 500070, 1359315, 2122697, 1354231, 75654675, 42973996, 2280768, 25368104, 91553291, 1291021, 4933549 ####[facility] [address] [place] [address] CHEMISTRYOrdered By: SYSTEM SYSTEM on 06-18-2022 Lactate [...] 06-18-2022 Albumin [Mass/Vol] 3.1 g/dL Low 3.3-5.0 [facility] Comment on above: Performed By: #### 2 978983, 4621085, 1849089, 5874477, 08966991, 19196458, 8614247, 36353921, 18280994, 1132993, 1688183 ####[facility] [address] [place] [address] Albumin/Globulin (S) [Mass conc ratio] 0.7 Low 1.1-2.2 [facility] Comment on above: Performed By: #### 2 775618, 7971748, 2422861, 2103959, 88239680, 44131888, 8983975, 26807995, 66184110, 8798155, 6250941 ####[facility] [address] [place] [address] ALP [Catalytic activity/Vol] 59 Int._Unit/L Normal 21-98 [facility] Comment on above: Performed By: #### 2 082915, 9325173, 4148375, 6151885, 00826208, 27409140, 6344833, 76390793, 46691984, 5700662, 5309648 ####[facility] [address] [place] [address] ALT No additional P-5'-P [Catalytic activity/Vol] 14 Int._Unit/L Normal 6-46 [facility] Comment on above: Performed By: #### 2 123438, 7978425, 2535186, 6565197, 08378807, 86349870, 1778223, 96172517, 96968744, 0021930, 0892756 ####[address] [address] AST [Catalytic activity/Vol] 17 Int._Unit/L Normal 5-43 [facility] Comment on above: Performed By: #### 2 306685, 8270257, 3689835, 7387776, 60771826, 80985432, 9364770, 49345417, 03137373, 6125646, 9686409 ####[facility] [address] [place] [address] Bilirubin [Mass/Vol] 0.6 mg/dL Normal 0.0-1.1 [facility] Comment on above: Performed By: #### 2 928028, 1833908, 2653590, 3740408, 66855236, 96689906, 6367267, 27097042, 96841933, 4313828, 7358332 ####[facility] [address] [place] [address] Creatinine [Mass/Vol] 0.9 mg/dL Normal 0.5-1.3 [facility] Comment on above: Performed By: #### 2 285980, 2327701, 5534174, 7354440, 83593901, 28975535, 6118779, 37644836, 95451665, 1120047, 0776849 ####[facility] [address] [place] [address] Globulin (S) [Mass/Vol] 4.2 g/dL High 1.4-4.0 [facility] Comment on above: Performed By: #### 2 331205, 0671271, 6008686, 0080039, 50116165, 97161503, 7257699, 63359274, 62648338, 2830882, 5160136 ####[facility] [address] [place] [address] Protein [Mass/Vol] 7.3 g/dL Normal 6.0-7.8 [facility] Comment on above: Performed By: #### 2 449897, 7330417, 0662999, 1331197, 43871500, 51965137, 3385265, 71275834, 92158955, 7181972, 7215690 ####[facility] [address] [place] [address] Urea nitrogen [Mass/Vol] 25 mg/dL High 5-21 [facility] Comment on above: Performed By: #### 2 562133, 1469981, 3011178, 3152886, 63119106, 18776822, 6632928, 83391097, 75008991, 5364772, 9326714 ####[facility] [address] [place] [address] Urea nitrogen/Creatinine [Mass ratio] 28 No Units High 10-20 [facility] Comment on above: Performed By: #### 2 341906, 9663684, 2668298, 2689415, 27947709, 73896640, 7896189, 90715495, 49823358, 0866960, 3549277 ####[facility] [address] [place] [address] Anion gap [Moles/Vol] 12 mmol/L Normal 6-16 [facility] Comment on above: Performed By: #### 2 105977, 5971962, 1172079, 0871129, 13759391, 11499027, 1018267, 56643545, 40202629, 8676498, 1704580 ####[facility] [address] [place] [address] Calcium [Mass/Vol] 8.7 mg/dL Low 8.9-11.1 [facility] Comment on above: Performed By: #### 2 017042, 0559194, 5049297, 7201593, 06193055, 47975606, 4068430, 33701467, 99330644, 1755446, 6656837 ####[facility] [address] [place] [address] Chloride [Moles/Vol] 98 mmol/L Low 101-111 [facility] Comment on above: Performed By: #### 2 644411, 6240182, 3542150, 6380948, 65440231, 38638138, 1899869, 64670172, 88180479, 5687627, 2185104 ####[facility] [address] [place] [address] CO2 [Moles/Vol] 27 mmol/L Normal 21-31 [facility] Comment on above: Performed By: #### 2 436986, 6426726, 7512191, 4557371, 72390319, 20471694, 4218321, 51689804, 00265770, 4522978, 0478214 ####[facility] [address] [place] [address] Glucose [Mass/Vol] 321 mg/dL High 55-199 [facility] Comment on above: Result Comment: If t his glucose result represents a fasting glucose, interpretation should refer to the following reference range: 55-99 mg/dL Performed By: #### 2 868716, 8902303, 2369103, 8606211, 25053739, 15398989, 5106162, 07968992, 04931175, 7733897, 7843299 ####[facility] [address] [place] [address] Potassium [Moles/Vol] 4.2 mmol/L Normal 3.5-5.3 [facility] Comment on above: Performed By: #### 2 188770, 5484111, 0436571, 8715130, 87095565, 90949766, 5877071, 98947052, 02845361, 8656163, 5691297 ####[facility] [address] [place] [address] Sodium [Moles/Vol] 133 mmol/L Low 135-145 [facility] Comment on above: Performed By: #### 2 380971, 2266776, 1364969, 5670860, 22930207, 50187878, 1870504, 57164643, 38815345, 5377985, 6800720 ####[facility] [address] [place] [address] COAGULATIONOrdered By: Pascale Portillo on 06-18-2022 aPTT Coag (PPP) [Time] 31.3 s Normal 25.1 - 36.5 second(s) [facility] Auto Coag INR Coag (PPP) [Relative time] 1.1 {INR} Invalid Interpretation Code [facility] Auto Coag PT Coag (PPP) [Time] 12.0 s Normal 9.4 - 1 2.5 second(s) [facility] Auto Coag Capillary Glucose POCon Glucose [Mass/Vol] 256 mg/dL High 55-99 [facility] Comment on above: Result Comment: Mary COLLAZO Performed By: #### 2 44778615 ####[facility] [address] [place] [address] Glucose [Mass/Vol] 158 mg/dL High 55-99 [facility] Comment on above: Result Comment: Mary COLLAZO Performed By: #### 2 75863592 ####[facility] [address] [place] [address] Consent for Procedure/Surger yon 06-18-2022 Consent for Procedure/Surgery [id number]#1.00CD:127 Normal [facility] Consent for Treatmenton Consent for Treatment [id number]#[id number]:127 Normal [facility] Consent for Treatment [id number]#1.00CD:127 Normal [facility] Consent for Treatment [id number]#1.00CD:127 Normal [facility] ED Clinical Summaryon 2022 ED Clinical Summary Normal [facility] ED Note-Nursingon 06-18-2022 ED Note-Nursing Pt to MRI via cart a t this time. Normal [facility] ED Patient Education Noteon 06-18-2022 ED Patient Education Note Normal [facility] ED Patient Summaryon 023 ED Patient Summary Normal [facility] Ferritinon 06-18-2022 Ferritin [Mass/Vol] 21 ng/mL Low 24-336 [facility] Comment on above: Result Comment: NORM ALS MEN <30 YRS 16-132 ng/mL MEN >30 YRS 8-338 ng/mL WOMEN (PREMEN) 6-104 ng/mL WOMEN (POSTMEN) 12-210 ng/mL Performed By: #### 2 541310, 2930965, 3768481, 7680843, 83096826, 83766145, 1524483, 53642801, 62270347, 7283550, 9590879 ####[facility] [address] [place] [address] HEMATOLOGYOrdered By: Alecia Miranda on 06-18-2022 Sed Rate Automated 36 mm/h High 0 - 19 mm/hr [facility] HemeAutoSS Ironon 06-18-2022 Iron [Mass/Vol] 28 microgram/dL Low 35-153 [facility] Comment on above: Performed By: #### 2 104014, 9915889, 1095568, 7900389, 08768819, 73048150, 1804872, 24610764, 55296089, 1546241, 8633868 ####[facility] [address] [place] [address] Lactic Acidon 06-18-2022 Lactate [Mass/Vol] 1.3 mmol/L Normal 0.5-2.2 [facility] Comment on above: Performed By: #### 2 462135 ####[facility] [address] [place] [address] Lactate [Mass/Vol] 1.7 mmol/L Normal 0.5-2.2 [facility] Comment on above: Performed By: #### 2 578805, 8236704, 2401690, 4197289, 06490464, 16632838, 7615279, 12549214, 76295979, 2203313, 5593526 ####[facility] [address] [place] [address] MRI Foot w/o Contrast Righto n 06-18-2022 MRI Foot w/o Contrast Right Normal [facility] Multi-Wound Charton 06-18-19 23 Multi-Wound Chart [id number]#1.00CD:127 Normal [facility] No Panel InformationOrdered By: ANGPROCESSSERVER MICROBIOLOGY on 06-18-2022 Blood Culture Charcoal No growth at 5 days. Final to follow at 7 days. [facility] Blood Culture Charcoal No growth at 5 days. Final to follow at 7 days. [facility] PT & PTTon 06-18-2022 aPTT Coag (PPP) [Time] 31.3 second(s) Normal 25.1-36.5 [facility] Comment on above: Result Comment: Para [...] the same coagulation reagent and instrumentation as [facility]. Currently there are no coagulation studies available worldwide for children to 14 days, and no normal ranges. Heparin therapeutic range (represented by Anti-Factor Xa activity of 0.2 - 0.4 U/mL) corresponds to PTT of 56.6 - 109.0 sec. Performed By: #### 2 327514, 6718023, 2904741, 3039178, 42592725, 23002714, 7663859, 14314376, 08870781, 1552555, 8459454 ####[facility] [address] [place] [address] INR Coag (PPP) [Relative time] 1.1 {INR} Invalid Interpretation Code [facility] Comment on above: Result Comment: INR results are specifically intended to assess patients stabilized on long-term Anticoagulation therapy suggested INR?s ?Less Intensive Anticoagulation? 2.0 ? 3.0Conventional Range 3.0 ? 4.5 Performed By: #### 2 310272, 0631166, 1941011, 9328791, 02558684, 87839694, 2327296, 60226286, 96511014, 9176665, 0757047 ####[facility] [address] [place] [address] PT Coag (PPP) [Time] 12.0 second(s) Normal 9.4-12.5 [facility] Comment on above: Result Comment: 15 d ays - 4 weeks 1 - 5 months 6 -11 months 1- 5 years 6-10 years 11 -17 years Mean: 11.2 (9.5-12.6) Mean: 11.0 (9.7-12.8) Mean: 11.0 (9.8-13.0) Mean: 11.3 (9.9-13.4) Mean: 11.7 (10.0-14.6) Mean: 11.8 (10.0 - 14.1) Pediatric Reference ranges were obtained from a study by Jose Juan Columbus, et al. prepared from 1437 samples obtained at 7 different centers using the same coagulation reagent and instrumentation as [facility]. Currently there are no coagulation studies available worldwide for children to 14 days, and no normal ranges. Performed By: #### 2 243426, 1673586, 8172115, 8069838, 36358847, 52807881, 4318172, 02127389, 84778937, 9036943, 3286387 ####[facility] [address] [place] [address] Physician Orderon 06-18-2022 Physician Order [id number]#[id number]:127 Normal [facility] Physician Order [id number]#1.00CD:127 [facility] Pre-Arrival Noteon Pre-Arrival Note Normal [facility] Procedure - Woundon 06-18-19 23 Procedure - Wound [id number]#1.00CD:127 Normal [facility] Progress Note - Pharmacyon 0 06-18-2022 Progress Note - Pharmacy [facility] Progress Note - [place] Progress Note - Wound [id number]#1.00CD:127 Normal [facility] RAD - MRI Screening Formon 0 06-18-2022 RAD - MRI Screening Form [id number]#1.00CD:127 Normal [facility] Sed Rate Automatedon 023 Sed Rate Automated 36 mm/hr High 0-19 [facility] Comment on above: Performed By: #### 2 513771, 7271454, 0240316, 6577483, 97157780, 93365162, 6637300, 36094910, 25205327, 6602228, 0109947 ####[facility] [address] [place] [address] TIBC Calculatedon 06-18-2022 Iron binding capacity [Mass/Vol] 296 microgram/dL Normal 250-400 [facility] Comment on above: Performed By: #### 2 575064, 9736916, 9021480, 0318326, 27932677, 03548806, 7913633, 53252407, 50395150, 2240005, 5431174 ####[facility] [address] [place] [address] Transferrin [Mass/Vol] 211 mg/dL Normal 200-370 [facility] Comment on above: Performed By: #### 2 223673, 2236691, 0681477, 7626510, 62900376, 24629061, 4923243, 26571948, 40363207, 3592534, 1510990 ####[facility] [address] [place] [address] Troponinon 06-18-2022 Troponin I.cardiac [Mass/Vol] 3.20 pg/mL Low 15.90-38.40 [facility] Comment on above: Result Comment: The 95% CI (Confidence Interval) PPV (Positive Predictive Value) for myocardial infarction in females is 38 pg/mL, in males 51 pg/mL. The results should be used in conjunction with clinical conditions of myocardial infarction.(Access High Sensitivity Troponin I Instructions For Use, [employer], December 2017) Performed By: #### 2 248226, 5845185, 0358419, 4839115, 30744276, 95372581, 6084412, 24005685, 49443904, 1860703, 5392887 ####[facility] [address] [place] [address] UA With Cult Reflexon 2022 Bilirubin Ql (U) Negative Normal Negative [facility] Comment on above: Performed By: #### 1 0370680 ####[facility] [address] [place] [address] Clarity (U) CLEAR Normal Clear [facility] Comment on above: Performed By: #### 1 [id number] ####[facility] [address] [place] [address] Color (U) YELLOW Normal Yellow [facility] Comment on above: Performed By: #### 1 8558387 ####[facility] [address] [place] [address] Epithelial cells.squamous LM.HPF (Urine sed) [#/Area] 0-2 Normal 0-2 [facility] Comment on above: Performed By: #### 1 2008446 ####[facility] [address] [place] [address] Glucose Test strip (U) [Mass/Vol] 3+ Abnormal Negative [facility] Comment on above: Performed By: #### 1 [id number] ####[address] [address] Hemoglobin Ql (U) Negative Normal Negative [facility] Comment on above: Performed By: #### 1 [id number] ####[address] [address] Ketones (U) [Mass/Vol] Negative Normal Negative [facility] Comment on above: Performed By: #### 1 1371439 ####[facility] [address] [place] [address] Sagar.plasma/Lithiu m.RBC (Bld) [Mass ratio] 0-3 Normal 0-3 [facility] Comment on above: Performed By: #### 1 4444159 ####[facility] [address] [place] [address] Nitrite Ql (U) Negative Normal Negative [facility] Comment on above: Performed By: #### 1 0271252 ####[facility] [address] [place] [address] pH (U) 7.0 [pH] Invalid Interpretation Code 5.0-9.0 [facility] Comment on above: Performed By: #### 1 3562512 ####[facility] [address] [place] [address] Protein (U) [Mass/Vol] TRACE Abnormal Negative [facility] Comment on above: Performed By: #### 1 6504057 ####[facility] [address] [place] [address] Specific gravity (U) [Rel density] 1.010 Invalid Interpretation Code 1.005-1.030 [facility] Comment on above: Performed By: #### 1 8523977 ####[place] [address] Type of Urine collection method Clean Catch Normal [facility] Comment on above: Performed By: #### 1 6683173 ####[address] [address] Urobilinogen Qn (U) 0.2 {Tu'U}/dL Normal 0.0-1.0 [facility] Comment on above: Performed By: #### 1 6364577 ####[place] [address] WBC Auto Ql (U) Negative Normal Negative [facility] Comment on above: Performed By: #### 1 6622049 ####[place] [address] WBC LM.HPF (Urine sed) [#/Area] 0-5 Normal 0-5 [facility] Comment on above: Performed By: #### 1 [id number] ####[place] [address] URINALYSISOrdered By: Adri freitas on 06-18-2022 Bilirubin Ql (U) Negative (06/18/22 3:06 PM) Normal Negative [facility] Auto SS Clarity (U) Clear (06/18/22 3:06 PM) Normal Clear [facility] UA Auto SS Color (U) Yellow (06/18/22 3:06 PM) Normal Yellow [facility] UA Auto SS Epithelial cells.squamous LM.HPF (Urine sed) [#/Area] 0-2 /HPF Normal 0-2/HPF [facility] UA Auto SS Glucose Test strip (U) [Mass/Vol] 3+ *ABN* (06/18/22 3:06 PM) Invalid Interpretation Code Negative [facility] UA Auto SS Hemoglobin Ql (U) Negative (06/18/22 3:06 PM) Normal Negative [facility] UA Auto SS Ketones (U) [Mass/Vol] Negative (06/18/22 3:06 PM) Normal Negative [facility] UA Auto SS Sagar.plasma/Lithiu m.RBC (Bld) [Mass ratio] 0-3 /HPF Normal [...] Desc Clean Catch (06/18/22 3:06 PM) Normal [facility] UA Auto SS Urobilinogen Qn (U) 0.9893917 {Tu'U}/dL Normal 0.0 - 1.0 EU/dL [facility] UA Auto SS WBC Auto Ql (U) Negative (06/18/22 3:06 PM) Normal Negative [facility] UA Auto SS WBC LM.HPF (Urine sed) [#/Area] 0-5 /HPF Normal 0-5/HPF [facility] UA Auto SS XR Chest Single Viewon 06-18 XR Chest Single View Normal [facility] XR Foot 3+ Views Righton XR Foot 3+ Views Right Normal [facility] eGFRon 06-18-2022 GFR/1.73 sq M.predicted among blacks MDRD (S/P/Bld) [Vol rate/Area] mL/min/{1.73_m2} Normal >=59 [facility] Comment on above: Order Comment: Order added by Discern Expert. Result Comment: eGFR is race adjusted. AA=. Performed By: #### 2 450836, 8675005, 4155591, 3708932, 51789782, 03527241, 5645331, 95565013, 04340104, 7710946, 8914109 ####[facility] [address] [place] [address] GFR/1.73 sq M.predicted among non-blacks MDRD (S/P/Bld) [Vol rate/Area] mL/min/{1.73_m2} Normal >=59 [facility] Comment on above: Order Comment: Order added by Discern Expert. Result Comment: Product Analyst claus kidney disease could be indicated at eGFR's of less than 60 mL/min/1.73m2. Kidney failure is indicated at less than 15 mL/min/1.73m2. Performed By: #### 2 043018, 8434874, 3390413, 3076896, 35530964, 04496317, 5687322, 16020767, 14553744, 8754833, 0032327 ####[facility] [address] [place] [address] Physician Orderon 06-17-2022 Physician Order [id number]#1.00CD:127 Normal [facility] CHEMISTRYOrdered By: Lab ROP User on 04-18-2022 Glucose [Mass/Vol] 153 mg/dL High 55 - 99 mg/dL [facility] POC Subsection Comment on above: Result Comment: Mary COLLAZO POC Device SN [id number] Invalid Interpretation Code FT POC Subsection POC User ID [id number] Invalid Interpretation Code FT POC Subsection POC Username EMERITA FAM Invalid Interpretation Code [facility] POC Subsection CHEMISTRYOrdered By: SYSTEM SYSTEM on 04-18-2022 Vancomycin peak [Moles/Vol] 39 microgram/mL Normal 20 - 40 mcg/mL [facility] Remisol CHEMISTRYOrdered By: Lab ROP User on 04-17-2022 Glucose [Mass/Vol] 306 mg/dL High 55 - 99 mg/dL [facility] POC Subsection POC Device SN [id number] Invalid Interpretation Code FT POC Subsection POC User ID [id number] Invalid Interpretation Code FT POC Subsection POC Username ANNEMARIE MIN Invalid Interpretation Code FT POC Subsection Glucose [Mass/Vol] 244 mg/dL High 55 - 99 mg/dL [facility] POC Subsection Comment on above: Result Comment: Mary COLLAZO POC Device SN [id number] Invalid Interpretation Code [facility] POC Subsection POC User ID [id number] Invalid Interpretation Code [facility] POC Subsection POC Username EMERITA FAM Invalid Interpretation Code [facility] POC Subsection CHEMISTRYOrdered By: SYSTEM SYSTEM on 04-17-2022 Anion gap [Moles/Vol] 13 mmol/L Normal 6 - 16 mEq/L [facility] Remisol Calcium [Mass/Vol] 8.4 mg/dL Low 8.9 - 11. 1 mg/dL [facility] Chloride [Moles/Vol] 101 mmol/L Normal 101 - 1 11 mmol/L [facility] CO2 [Moles/Vol] 28 mmol/L Normal 21 - 31 mmol/L [facility] Creatinine [Mass/Vol] 0.8 mg/dL Normal 0.5 - 1.3 mg/dL [facility] Remisol GFR/1.73 sq M.predicted among blacks MDRD (S/P/Bld) [Vol rate/Area] mL/min/1.73 m2 Normal >=59mL/min/1 .73 m2 [facility] Chem S GFR/1.73 sq M.predicted among non-blacks MDRD (S/P/Bld) [Vol rate/Area] mL/min/1.73 m2 Normal >=59mL/min/1 .73 m2 [facility] Chem S Glucose [Mass/Vol] 182 mg/dL Normal 55 - 199 mg/dL [facility] Rem[facility] Potassium [Moles/Vol] 3.9 mmol/L Normal 3.5 - 5.3 mmol/L [facility] Sodium [Moles/Vol] 138 mmol/L Normal 135 - 145 mmol/L [facility] Urea nitrogen [Mass/Vol] 21 mg/dL Normal 5 - 21 mg/dL [facility] Remisol Urea nitrogen/Creatinine [Mass ratio] 26 mg/mg High 10 - 20 [facility] Remisol HEMATOLOGYOrdered By: SYSTEM SYSTEM on 04-17-2022 Basophils/100 WBC (Bld) 1.1 % Normal 0.0 - 2.0 % [facility] HemeAutoSS Basophils/Leukocytes Auto (Bld) [Pure # fraction] 0.1 E9/L Normal 0.0 - 0.2 E9/L [facility] HemeAutoSS Eosinophils/100 WBC (Bld) 4.0 % Normal [...] Normal >=59mL/min/1 .73 m2 [facility] Chem S GFR/1.73 sq M.predicted among non-blacks MDRD (S/P/Bld) [Vol rate/Area] mL/min/1.73 m2 Normal >=59mL/min/1 .73 m2 [facility] Chem S Glucose [Mass/Vol] 205 mg/dL High [...] Normal >=59mL/min/1 .73 m2 [facility] Chem S GFR/1.73 sq M.predicted among non-blacks MDRD (S/P/Bld) [Vol rate/Area] mL/min/1.73 m2 Normal >=59mL/min/1 .73 m2 [facility] Chem S Glucose [Mass/Vol] 229 mg/dL High 55 - 199 mg/dL [facility] Remisol Potassium [Moles/Vol] 4.0 mmol/L Normal 3.5 - 5.3 mmol/L [facility] Remisol Sodium [Moles/Vol] 132 mmol/L Low 135 - 145 mmol/L [facility] Remisol Triglyceride [Mass/Vol] 118 mg/dL Normal <=149mg/dL [...] 10.2 g/dL Low 13.5 - 17.5 gm/dL [facility] HemeAutoSS MCH (RBC) [Entitic mass] 25.4 pg Low 27.0 - 34.0 pg FT HemeAutoSS MCHC (RBC) [Mass/Vol] 33.4 g/dL Normal [...] 8.0 E9/L Normal 4.0 - 11.0 E9/L [facility] HemeAutoSS CHEMISTRYOrdered By: SYSTEM SYSTEM on 04-14-2022 Troponin I.cardiac [Mass/Vol] 3.70 pg/mL Low 15.90 - 38.40 pg/mL [facility] Remisol Troponin I.cardiac [Mass/Vol] 3.50 pg/mL [...] 80 pg/mL Normal 5 - 80 pg/mL [facility] HemeManSS COAGULATIONOrdered By: Pietro Estrada on 04-14-2022 [...] 32.4 g/dL Normal 31.4 - 36.0 gm/dL [facility] HemeAutoSS MCV (RBC) [Entitic vol] 78.1 fL [...] days. Final to follow at 7 days. [facility] CBC AUTO DIFFon 04-01-2022 BASO # 0.1 103/ul Normal 0.0-0.1 [facility] Comment on above: Performed By: #### C BC #### [facility] [address] [address] [address] Terrenec Paige Basophils/100 WBC (Bld) 0.8 % Normal 0.2-2.0 [facility] Comment on above: Performed By: #### C BC #### [facility] [address] [address] [address] Terrence Paige EO # 0.1 103/ul Normal 0.0-0.7 [facility] Comment on above: Performed By: #### C BC #### [facility] [address] [address] [address] Terrence Paige Eosinophils/100 WBC (Bld) 1.4 % Normal 0.9-7.0 [facility] Comment on above: Performed By: #### C BC #### [facility] [address] [address] [address] Terrence Paige Erythrocyte distribution width (RBC) [Ratio] 15.7 % Critically high 11.0-15.0 [facility] Comment on above: Performed By: #### C BC #### [facility] [address] [place] [address] Dr. Terrence Paige Hematocrit (Bld) [Volume fraction] 35.1 % Critically low 42.0-54.0 [facility] Comment on above: Performed By: #### C BC #### [facility] [address] [place] [address] Dr. Terrence Paige Hemoglobin (Bld) [Mass/Vol] 11.2 g/dL Critically low 14.0-18.0 [facility] Comment on above: Performed By: #### C BC #### [facility] [address] [place] [address] Dr. Terrence Paige IG # 0.02 10e3/ul Normal 0.00-0.03 [facility] Comment on above: Performed By: #### C BC #### [facility] [address] [place] [address] Dr. Terrence Paige IG % 0.3 % Normal 0.0-0.5 [facility] Comment on above: Performed By: #### C BC #### [facility] [address] [place] [address] Dr. Terrence Paige LYMPH # 1.9 103/ul Normal 1.2-3.8 [facility] Comment on above: Performed By: #### C BC #### [facility] [address] [place] [address] Dr. Terrence Paige Lymphocytes/100 WBC (Bld) 24.2 % Normal 20.5-60.0 [facility] Comment on above: Performed By: #### C BC #### [facility] [address] [place] [address] Dr. Terrence Paige MANUAL DIFF REQ NO Normal [facility] Comment on above: Performed By: #### C BC #### [facility] [address] [place] [address] Dr. Terrence Paige MCH (RBC) [Entitic mass] 25.6 pg Critically low 25.9-34.0 [facility] Comment on above: Performed By: #### C BC #### [facility] [address] [address] [address] Terrence Paige MCHC (RBC) [Mass/Vol] 31.9 g/dL Normal 29.9-35.2 [facility] Comment on above: Performed By: #### C BC #### [facility] [address] [place] [address] Dr. Terrence Paige MCV (RBC) [Entitic vol] 80.1 fL Normal 80.0-94.0 [facility] Comment on above: Performed By: #### C BC #### [facility] [address] [place] [address] Dr. Terrence Paige MONO # 0.6 103/ul Normal 0.3-0.8 [facility] Comment on above: Performed By: #### C BC #### [facility] [address] [place] [address] Dr. Terrence Paige Monocytes/100 WBC (Bld) 7.8 % Normal 1.7-12.0 [facility] Comment on above: Performed By: #### C BC #### [facility] [address] [place] [address] Dr. Terrence Paige NEUT # 5.2 103/ul Normal 1.4-6.5 [facility] Comment on above: Performed By: #### C BC #### [facility] [address] [place] [address] Dr. Terrence Paige Neutrophils/100 WBC (Bld) 65.5 % Normal 43.0-75.0 [facility] Comment on above: Performed By: #### C BC #### [facility] [address] [place] [address] Dr. Terrence Paige Platelet mean volume (Bld) [Entitic vol] 11.2 fL Normal 9.5-13.5 [facility] Comment on above: Performed By: #### C BC #### [facility] [address] [place] [address] Dr. Terrence Paige PLT 232 103/ul Normal 150-450 [facility] Comment on above: Performed By: #### C BC #### [facility] [address] [place] [address] Dr. Terrence Paige RBC 4.38 106/ul Critically low 4.70-6.10 [facility] Comment on above: Performed By: #### C BC #### [facility] [address] [place] [address] Dr. Terrence Paige WBC 7.9 103/ul Normal 4.0-11.0 [facility] Comment on above: Performed By: #### C BC #### [facility] [address] [place] [address] Dr. Terrence Paige FREE T4on 04-01-2022 Free T4 [Mass/Vol] 1.26 ng/dL Normal 0.76-1.46 [facility] Comment on above: Performed By: #### F T4 #### [facility] [address] [place] [address] Dr. Terrence Paige HS-CRPon 04-01-2022 HS-CRP 7.71 mg/L Critically high <=3.00 [facility] Comment on above: Performed By: #### H SCRPT, CMP #### [facility] [address] [place] [address] Dr. Terrence Paige PROF 14(COMP METB)on 022 Albumin [Mass/Vol] 3.3 g/dL Critically low 3.4-5.0 Th e [facility] Comment on above: Performed By: #### H SCRPT, CMP #### [facility] [address] [place] [address] Dr. Terrence Paige Albumin/Globulin [Mass ratio] 0.8 {ratio} Normal [facility] Comment on above: Performed By: #### H SCRPT, CMP #### [facility] [address] [place] [address] Dr. Terrence Paige ALP [Catalytic activity/Vol] 72 U/L Normal 46-116 [facility] Comment on above: Performed By: #### H SCRPT, CMP #### [facility] [address] [place] [address] Dr. Terrence Paige ALT [Catalytic activity/Vol] 23 U/L Normal 16-63 [facility] Comment on above: Performed By: #### H SCRPT, CMP #### [facility] [address] [address] [address] Terrence Paige Anion gap [Moles/Vol] 12.8 mmol/L Normal Th e [facility] Comment on above: Performed By: #### H SCRPT, CMP #### [facility] [address] [place] [address] Dr. Terrence Paige AST [Catalytic activity/Vol] 18 U/L Normal 15-37 [facility] Comment on above: Performed By: #### H SCRPT, CMP #### [facility] [address] [place] [address] Dr. Terrence Paige Bilirubin [Mass/Vol] 0.4 mg/dL Normal 0.2-1.0 [facility] Comment on above: Performed By: #### H SCRPT, CMP #### [facility] [address] [place] [address] Dr. Terrence Paige Calcium [Mass/Vol] 9.1 mg/dL Normal 8.5-10.1 [facility] Comment on above: Performed By: #### H SCRPT, CMP #### [facility] [address] [place] [address] Dr. Terrence Paige Chloride [Moles/Vol] 98 mmol/L Normal 98-107 [facility] Comment on above: Performed By: #### H SCRPT, CMP #### [facility] [address] [place] [address] Dr. Terrence Paige CO2 [Moles/Vol] 29.3 mmol/L Normal 21.0-32.0 [facility] Comment on above: Performed By: #### H SCRPT, CMP #### [facility] [address] [place] [address] Dr. Terrence Paige Creatinine [Mass/Vol] 0.88 mg/dL Normal 0.70-1.30 [facility] Comment on above: Performed By: #### H SCRPT, CMP #### [facility] [address] [place] [address] Dr. Terrence Paige EGFR-AF KUWAITI >60 Normal >=60 [facility] Comment on above: Performed By: #### H SCRPT, CMP #### [facility] [address] [place] [address] Dr. Terrence Paige EGFR-NON AF [place]I >60 Normal >=60 [facility] Comment on above: Performed By: #### H SCRPT, CMP #### [facility] [address] [place] [address] Dr. Terrence Paige Globulin (S) [Mass/Vol] 4.4 g/dL Normal [facility] Comment on above: Performed By: #### H SCRPT, CMP #### [facility] [address] [place] [address] Dr. Terrence Paige Glucose [Mass/Vol] 273 mg/dL Critically high 74-106 T [facility] Comment on above: Performed By: #### H SCRPT, CMP #### [facility] [address] [place] [address] Dr. Terrence Paige Potassium [Moles/Vol] 4.1 mmol/L Normal 3.5-5.1 [facility] Comment on above: Performed By: #### H SCRPT, CMP #### [facility] [address] [place] [address] Dr. Terrence Paige Protein [Mass/Vol] 7.7 g/dL Normal 6.4-8.2 [facility] Comment on above: Performed By: #### H SCRPT, CMP #### [facility] [address] [place] [address] Dr. Terrence Paige Sodium [Moles/Vol] 136 mmol/L Normal 136-145 [facility] Comment on above: Performed By: #### H SCRPT, CMP #### [facility] [address] [place] [address] Dr. Terrence Paige Urea nitrogen [Mass/Vol] 19.0 mg/dL Critically high 7.0-18.0 [facility] Comment on above: Performed By: #### H SCRPT, CMP #### [facility] [address] [place] [address] Dr. Terrence Paige Urea nitrogen/Creatinine [Mass ratio] 21.6 mg/mg Normal [facility] Comment on above: Performed By: #### H SCRPT, CMP #### [facility] [address] [address] [address] Terrence Paige SED RATE WESTERGRENon 2021 SED RATE 68 mm/hr Critically high <=20 [facility] Comment on above: Performed By: #### S EDR #### [facility] [address] [place] [address] Dr. Terrence Paige TSHon 04-01-2022 TSH 3.084 uIU/mL Normal 0.358-3.740 [facility] Comment on above: Performed By: #### T SH #### [facility] [address] [place] [address] Dr. Terrence Paige XR CHEST 2 Von 04-01-2022 XR CHEST 2 V EXAM: XR CHEST 2 V HISTORY: . Dyspnea . COMPARISON: 03/05/2021 TECHNIQUE: Frontal and lateral chest FINDINGS: Heart and vascularity are unremarkable. Lungs are expanded and free of focal infiltrates. Spondylosis of the spine is noted. IMPRESSION: No acute heart or lung disease identified. Electronically authenticated by: ZARINA CHOWDHURY Date: 2022-04-01 18:43 Normal [facility] Creatinine and Glomerular fi ltration rate.predicted panel (S/P/Bld)Ordered By: Janet Gomez on 03-21-2022 Creatinine [Mass/Vol] 1.13 mg/dL 0.64-1.27 [facility] Estimated glomerular filtrat ion rate (GFR) non- AmericanOrdered By: Janet Gomez on 03-21-2022 GFR/1.73 sq M.predicted among non-blacks MDRD (S/P/Bld) [Vol rate/Area] > 60 mL/Min [facility] - Chemistry and C hemistry - challengeOrdered By: Janet Gomez on 03-21-2022 Natriuretic peptide B (Bld) [Mass/Vol] 18.0 pg/mL 5-100 [facility] No Panel InformationOrdered By: Janet Gomez on 11-11-2022 Estimated GFR () > 60 mL/Min [facility] Comment on above: GFR estimated refere nce range: According to KDOQI guidelines, <60 ml/min/1.73m2 is sufficient to diagnose a patient with chronic kidney disease. Pharmacy Creatinine Clearance (Chem N/A [facility] Serum or plasma anion gap de terminationOrdered By: Janet Gomez on 03-21-2022 Anion gap [Moles/Vol] 13.1 mmol/L 6.0-15.0 [facility] Serum or plasma calcium mary urement (mass/volume)Ordered By: Janet Gomez on 03-21-2022 Calcium [Mass/Vol] 8.9 mg/dL 8.2-10.2 [facility] Serum or plasma chloride cristian surement (moles/volume)Ordered By: Janet Gomez on 03-21-2022 Chloride [Moles/Vol] 97 mmol/L 95-114 [facility] Serum or plasma glucose mary urement (mass/volume)Ordered By: Janet Gomez on 03-21-2022 Glucose [Mass/Vol] 242 mg/dL 70-100 [facility] Comment on above: ADA recommended refe rence rangeRandom Glucose Reference Range is dependent on time and content of last meal. Glucose of more than 200 mg/dL in a nonstressed, ambulatory subject supports the diagnosis of Diabetes Mellitus. Serum or plasma potassium me asurement (moles/volume)Ordered By: Janet Gomez on 03-21-2022 Potassium [Moles/Vol] 4.3 mmol/L 3.5-5.1 [facility] Serum or plasma sodium measu rement (moles/volume)Ordered By: Janet Gomez on 03-21-2022 Sodium [Moles/Vol] 132 mmol/L 136-146 [facility] Serum or plasma total carbon dioxide measurement (moles/volume)Ordered By: Janet Gomez on 03-21-2022 CO2 [Moles/Vol] 26.2 mmol/L 22.0-30.0 [facility] Serum or plasma urea nitroge n measurement (mass/volume)Ordered By: Janet Gomez on 03-21-2022 Urea nitrogen [Mass/Vol] 28 mg/dL 01-31 [facility] BASIC METABOLIC PANELon 12-09 Calcium [Mass/Vol] 8.4 mg/dL Low 8.6-10.3 [facility] Comment on above: Order Comment: No: D o not add to previous drawRn draw Andrei Performed By: #### 0 0071 ####[facility] [place] [address], [facility] Chloride [Moles/Vol] 96 mmol/L Low 98-107 [facility] Comment on above: Order Comment: No: D o not add to previous drawRn draw Andrei Performed By: #### 0 0071 ####[facility] [place] [address], [facility] CO2 [Moles/Vol] 34 mmol/L High 21-31 [facility] Comment on above: Order Comment: No: D o not add to previous drawRn draw Andrei Performed By: #### 0 0071 ####[facility] [place] [address], [facility] Creatinine [Mass/Vol] 1.17 mg/dL Normal 0.70-1.30 [facility] Comment on above: Order Comment: No: D o not add to previous drawRn draw Andrei Performed By: #### 0 0071 ####[facility] [place] [address], [facility] GFR/1.73 sq M.predicted among non-blacks MDRD (S/P/Bld) [Vol rate/Area] mL/min/{1.73_m2} Normal >60 [facility] Comment on above: Order Comment: No: D o not add to previous drawRn draw Andrei Result Comment: [facility]'s estimated glomerularfiltration rate (eGFR) will no longer [...] of individuals. Performed By: #### 0 0071 ####[facility] Glucose [Mass/Vol] 177 mg/dL High 70-100 [facility] Comment on above: Order Comment: No: D o not add to previous drawRn draw Andrei Performed By: #### 0 0071 ####[place] [id number] [address] Potassium [Moles/Vol] 3.9 mmol/L Normal 3.5-5.1 [facility] Comment on above: Order Comment: No: D o not add to previous drawRn draw Andrei Performed By: #### 0 0071 ####[facility] Sodium [Moles/Vol] 136 mmol/L Normal 136-145 [facility] Comment on above: Order Comment: No: D o not add to previous drawRn draw Andrei Performed By: #### 0 0071 ####[facility] Urea nitrogen [Mass/Vol] 58 mg/dL High 7-25 [facility] Comment on above: Order Comment: No: D o not add to previous drawRn draw Andrei Performed By: #### 0 0071 ####[address] CBC COMPLETE BLOOD COUNTon 0 - Erythrocyte distribution width (RBC) [Ratio] 14.6 % Normal 11.5-15.0 [facility] Comment on above: Order Comment: No: D o not add to previous drawRn draw Andrei Performed By: #### 5 0608 ####[facility] Hematocrit (Bld) [Volume fraction] 30.6 % Low 39.0-50.0 [facility] Comment on above: Order Comment: No: D o not add to previous drawRn draw Andrei Performed By: #### 5 0608 ####[facility] Hemoglobin (Bld) [Mass/Vol] 10.0 g/dL Low 13.0-17.0 [facility] Comment on above: Order Comment: No: D o not add to previous drawRn draw Andrei Performed By: #### 5 0608 ####[facility] MCH (RBC) [Entitic mass] 26.7 pg Low 27.0-33.0 [facility] Comment on above: Order Comment: No: D o not add to previous drawRn draw Andrei Performed By: #### 5 0608 ####[facility] MCHC (RBC) [Mass/Vol] 32.7 g/dL Normal 32.0-35.0 [facility] Comment on above: Order Comment: No: D o not add to previous drawRn draw Andrei Performed By: #### 5 0608 ####[facility] MCV (RBC) [Entitic vol] 81.6 fL Low 82.0-98.0 [facility] Comment on above: Order Comment: No: D o not add to previous drawRn draw Andrei Performed By: #### 5 0608 ####[facility] Nucleated RBC/100 WBC (Bld) [Ratio] 0 % Normal 0-0 [facility] Comment on above: Order Comment: No: D o not add to previous drawRn draw Andrei Performed By: #### 5 0608 ####[facility] [place] [address], [facility] PLAT CNT 200 10*3/uL Normal 150-400 [facility] Comment on above: Order Comment: No: D o not add to previous drawRn draw Andrei Performed By: #### 5 0608 ####[facility] [place] [address], [facility] RBC (Bld) [#/Vol] 3.75 10*6/uL Low 4.20-5.70 [facility] Comment on above: Order Comment: No: D o not add to previous drawRn draw Andrei Performed By: #### 5 0608 ####[facility] [place] [address], [facility] WBC (Bld) [#/Vol] 8.71 10*3/uL Normal 4.00-10.60 [facility] Comment on above: Order Comment: No: D o not add to previous drawRn draw Andrei Performed By: #### 5 0608 ####[facility] [place] [address], [facility] POC GLUCOSE LABon 12-20-2021 Glucose [Mass/Vol] 221 mg/dL High 70-100 [facility] Comment on above: Performed By: #### 8 [id number] ####[facility] [place] [address], [facility] Glucose [Mass/Vol] 147 mg/dL High 70-100 [facility] Comment on above: Performed By: #### 8 [id number] ####[facility] [place] [address], [facility] BASIC METABOLIC PANELon 12-09 Calcium [Mass/Vol] 8.8 mg/dL Normal 8.6-10.3 [facility] Comment on above: Order Comment: No: D o not add to previous draw Performed By: #### 0 0071 ####[facility] [place] [address], [facility] Chloride [Moles/Vol] 95 mmol/L Low 98-107 [facility] Comment on above: Order Comment: No: D o not add to previous draw Performed By: #### 0 0071 ####[facility] [place] [address], [facility] CO2 [Moles/Vol] 32 mmol/L High 21-31 [facility] Comment on above: Order Comment: No: D o not add to previous draw Performed By: #### 0 0071 ####[facility] Creatinine [Mass/Vol] 0.99 mg/dL Normal 0.70-1.30 [facility] Comment on above: Order Comment: No: D o not add to previous draw Performed By: #### 0 0071 ####[facility] GFR/1.73 sq M.predicted among non-blacks MDRD (S/P/Bld) [Vol rate/Area] mL/min/{1.73_m2} Normal >60 [facility] Comment on above: Order Comment: No: D o not add to previous draw Result Comment: [facility]'s estimated glomerularfiltration rate (eGFR) will no longer [...] of individuals. Performed By: #### 0 0071 ####[facility] [place] [address], [facility] Glucose [Mass/Vol] 280 mg/dL High 70-100 [facility] Comment on above: Order Comment: No: D o not add to previous draw Performed By: #### 0 0071 ####[facility] [place] [address], [facility] Potassium [Moles/Vol] 4.5 mmol/L Normal 3.5-5.1 [facility] Comment on above: Order Comment: No: D o not add to previous draw Performed By: #### 0 0071 ####[facility] [place] [address], [facility] Sodium [Moles/Vol] 135 mmol/L Low 136-145 [facility] Comment on above: Order Comment: No: D o not add to previous draw Performed By: #### 0 0071 ####[facility] Urea nitrogen [Mass/Vol] 44 mg/dL High 7-25 [facility] Comment on above: Order Comment: No: D o not add to previous draw Performed By: #### 0 0071 ####[facility] CBC COMPLETE BLOOD COUNTon 0 - Erythrocyte distribution width (RBC) [Ratio] 14.6 % Normal 11.5-15.0 [facility] Comment on above: Order Comment: No: D o not add to previous draw Performed By: #### 5 0608 ####[facility] Hematocrit (Bld) [Volume fraction] 34.6 % Low 39.0-50.0 [facility] Comment on above: Order Comment: No: D o not add to previous draw Performed By: #### 5 0608 ####[facility] Hemoglobin (Bld) [Mass/Vol] 11.1 g/dL Low 13.0-17.0 [facility] Comment on above: Order Comment: No: D o not add to previous draw Performed By: #### 5 0608 ####[facility] [place] [address] MCH (RBC) [Entitic mass] 26.2 pg Low 27.0-33.0 [facility] Comment on above: Order Comment: No: D o not add to previous draw Performed By: #### 5 0608 ####[address] MCHC (RBC) [Mass/Vol] 32.1 g/dL Normal 32.0-35.0 [facility] Comment on above: Order Comment: No: D o not add to previous draw Performed By: #### 5 0608 ####[address] MCV (RBC) [Entitic vol] 81.8 fL Low 82.0-98.0 [facility] Comment on above: Order Comment: No: D o not add to previous draw Performed By: #### 5 0608 ####[address] Nucleated RBC/100 WBC (Bld) [Ratio] 0 % Normal 0-0 [facility] Comment on above: Order Comment: No: D o not add to previous draw Performed By: #### 5 0608 ####[address] PLAT CNT 251 10*3/uL Normal 150-400 [facility] Comment on above: Order Comment: No: D o not add to previous draw Performed By: #### 5 0608 ####[facility] [place] [address], [place] RBC (Bld) [#/Vol] 4.23 10*6/uL Normal 4.20-5.70 [facility] Comment on above: Order Comment: No: D o not add to previous draw Performed By: #### 5 0608 ####[facility] [place] [address], [place] WBC (Bld) [#/Vol] 9.04 10*3/uL Normal 4.00-10.60 [facility] Comment on above: Order Comment: No: D o not add to previous draw Performed By: #### 5 0608 ####[facility] [place] [address], [place] POC GLUCOSE LABon 12-19-2021 Glucose [Mass/Vol] 225 mg/dL High 70-100 [facility] Comment on above: Performed By: #### 8 [id number] ####[facility] [facility] [place] [address], [place] Glucose [Mass/Vol] 308 mg/dL High 70-100 [facility] Comment on above: Performed By: #### 8 [id number] ####[facility] [facility] [place] [address], [place] Glucose [Mass/Vol] 145 mg/dL High 70-100 [facility] Comment on above: Performed By: #### 8 [id number] ####[facility] [place] [address], [place] Glucose [Mass/Vol] 243 mg/dL High 70-100 [facility] Comment on above: Performed By: #### 8 [id number] ####[facility] [place] [address], [place] BASIC METABOLIC PANELon 12-09 Calcium [Mass/Vol] 8.3 mg/dL Low 8.6-10.3 [facility] Comment on above: Order Comment: No: D o not add to previous draw Performed By: #### 0 0071 ####[facility] [place] [address], [facility] Chloride [Moles/Vol] 94 mmol/L Low 98-107 [facility] Comment on above: Order Comment: No: D o not add to previous draw Performed By: #### 0 0071 ####[facility] [place] [address], [facility] CO2 [Moles/Vol] 33 mmol/L High 21-31 [facility] Comment on above: Order Comment: No: D o not add to previous draw Performed By: #### 0 0071 ####[facility] [place] [address], [facility] Creatinine [Mass/Vol] 0.91 mg/dL Normal 0.70-1.30 [facility] Comment on above: Order Comment: No: D o not add to previous draw Performed By: #### 0 0071 ####[facility] GFR/1.73 sq M.predicted among non-blacks MDRD (S/P/Bld) [Vol rate/Area] mL/min/{1.73_m2} Normal >60 [facility] Comment on above: Order Comment: No: D o not add to previous draw Result Comment: [facility]'s estimated glomerularfiltration rate (eGFR) will no longer [...] of individuals. Performed By: #### 0 0071 ####[facility] [id number], [facility] Glucose [Mass/Vol] 214 mg/dL High 70-100 [facility] Comment on above: Order Comment: No: D o not add to previous draw Performed By: #### 0 0071 ####[facility] [place] [address], [facility] Potassium [Moles/Vol] 4.2 mmol/L Normal 3.5-5.1 [facility] Comment on above: Order Comment: No: D o not add to previous draw Performed By: #### 0 0071 ####[facility] [place] [address], [facility] Sodium [Moles/Vol] 134 mmol/L Low 136-145 [facility] Comment on above: Order Comment: No: D o not add to previous draw Performed By: #### 0 0071 ####[facility] [place] [address], [facility] Urea nitrogen [Mass/Vol] 50 mg/dL High 7-25 [facility] Comment on above: Order Comment: No: D o not add to previous draw Performed By: #### 0 0071 ####[facility] [place] [address], [facility] CBC COMPLETE BLOOD COUNTon 0 12-18-2021 Erythrocyte distribution width (RBC) [Ratio] 14.5 % Normal 11.5-15.0 [facility] Comment on above: Order Comment: No: D o not add to previous draw Performed By: #### 5 0608 ####[facility] [place] [address], [facility] Hematocrit (Bld) [Volume fraction] 34.2 % Low 39.0-50.0 [facility] Comment on above: Order Comment: No: D o not add to previous draw Performed By: #### 5 0608 ####[facility] Hemoglobin (Bld) [Mass/Vol] 10.8 g/dL Low 13.0-17.0 [facility] Comment on above: Order Comment: No: D o not add to previous draw Performed By: #### 5 0608 ####[facility] MCH (RBC) [Entitic mass] 26.3 pg Low 27.0-33.0 [facility] Comment on above: Order Comment: No: D o not add to previous draw Performed By: #### 5 0608 ####[address] MCHC (RBC) [Mass/Vol] 31.6 g/dL Low 32.0-35.0 [facility] Comment on above: Order Comment: No: D o not add to previous draw Performed By: #### 5 0608 ####[address] MCV (RBC) [Entitic vol] 83.4 fL Normal 82.0-98.0 [facility] Comment on above: Order Comment: No: D o not add to previous draw Performed By: #### 5 0608 ####[address] Nucleated RBC/100 WBC (Bld) [Ratio] 0 % Normal 0-0 [facility] Comment on above: Order Comment: No: D o not add to previous draw Performed By: #### 5 0608 ####[address] PLAT CNT 272 10*3/uL Normal 150-400 [facility] Comment on above: Order Comment: No: D o not add to previous draw Performed By: #### 5 0608 ####[address] [place] [address], [place] RBC (Bld) [#/Vol] 4.10 10*6/uL Low 4.20-5.70 [facility] Comment on above: Order Comment: No: D o not add to previous draw Performed By: #### 5 0608 ####[facility] [facility] [place] [address], [place] WBC (Bld) [#/Vol] 9.98 10*3/uL Normal 4.00-10.60 [facility] Comment on above: Order Comment: No: D o not add to previous draw Performed By: #### 5 0608 ####[facility] [facility] [place] [address], [place] POC GLUCOSE LABon 12-18-2021 Glucose [Mass/Vol] 347 mg/dL High 70-100 [facility] Comment on above: Performed By: #### 8 [id number] ####[facility] [place] [address], [place] Glucose [Mass/Vol] 280 mg/dL High 70-100 [facility] Comment on above: Performed By: #### 8 [id number] ####[facility] [facility] [place] [address], [place] Glucose [Mass/Vol] 177 mg/dL High 70-100 [facility] Comment on above: Performed By: #### 8 5499 ####[facility] [facility] [place] [address], [place] Glucose [Mass/Vol] 224 mg/dL High 70-100 [facility] Comment on above: Performed By: #### 8 [id number] ####[facility] [place] [address], [place] ANKLE RIGHT 3 VWSon 12-18-19 22 ANKLE RIGHT 3 VWS Normal [facility] Comment on above: Order Comment: DJD BASIC METABOLIC PANELon Calcium [Mass/Vol] 8.4 mg/dL Low 8.6-10.3 [facility] Comment on above: Order Comment: No: D o not add to previous draw Performed By: #### 0 0071 ####[facility] [place] [address], [facility] Chloride [Moles/Vol] 92 mmol/L Low 98-107 [facility] Comment on above: Order Comment: No: D o not add to previous draw Performed By: #### 0 0071 ####[facility] [place] [address], [facility] CO2 [Moles/Vol] 36 mmol/L High 21-31 [facility] Comment on above: Order Comment: No: D o not add to previous draw Performed By: #### 0 0071 ####[facility] [place] [address], [facility] Creatinine [Mass/Vol] 1.25 mg/dL Normal 0.70-1.30 [facility] Comment on above: Order Comment: No: D o not add to previous draw Performed By: #### 0 0071 ####[facility] GFR/1.73 sq M.predicted among non-blacks MDRD (S/P/Bld) [Vol rate/Area] mL/min/{1.73_m2} Normal >60 [facility] Comment on above: Order Comment: No: D o not add to previous draw Result Comment: [facility]'s estimated glomerularfiltration rate (eGFR) will no longer [...] of individuals. Performed By: #### 0 0071 ####[facility] Glucose [Mass/Vol] 281 mg/dL High 70-100 [facility] Comment on above: Order Comment: No: D o not add to previous draw Performed By: #### 0 0071 ####[facility] Potassium [Moles/Vol] 3.6 mmol/L Normal 3.5-5.1 [facility] Comment on above: Order Comment: No: D o not add to previous draw Performed By: #### 0 0071 ####[facility] Sodium [Moles/Vol] 134 mmol/L Low 136-145 [facility] Comment on above: Order Comment: No: D o not add to previous draw Performed By: #### 0 0071 ####[facility] Urea nitrogen [Mass/Vol] 58 mg/dL High 7-25 [facility] Comment on above: Order Comment: No: D o not add to previous draw Performed By: #### 0 0071 ####[address] CBC W/DIFFon 12-17-2021 ABS IMM GRANS 0.1 10*3/uL Normal 0.0-0.2 [facility] Comment on above: Order Comment: No: D o not add to previous draw Performed By: #### 5 0103 ####[facility] ABS NEUTROPHILS 5.8 10*3/uL Normal 1.6-7.6 [facility] Comment on above: Order Comment: No: D o not add to previous draw Performed By: #### 5 0103 ####[facility] [place] [address], [facility] Basophils (Bld) [#/Vol] 0.1 10*3/uL Normal 0.0-0.2 [facility] Comment on above: Order Comment: No: D o not add to previous draw Performed By: #### 5 0103 ####[facility] [place] [address], [facility] Basophils/100 WBC (Bld) 0.8 % Normal 0.0-1.0 [facility] Comment on above: Order Comment: No: D o not add to previous draw Performed By: #### 5 0103 ####[facility] [place] [address], [facility] Eosinophils (Bld) [#/Vol] 0.2 10*3/uL Normal 0.0-0.5 [facility] Comment on above: Order Comment: No: D o not add to previous draw Performed By: #### 5 0103 ####[facility] [place] [address], [facility] Eosinophils/100 WBC (Bld) 1.7 % Normal 0.0-6.0 [facility] Comment on above: Order Comment: No: D o not add to previous draw Performed By: #### 5 0103 ####[facility] Erythrocyte distribution width (RBC) [Ratio] 14.1 % Normal 11.5-15.0 [facility] Comment on above: Order Comment: No: D o not add to previous draw Performed By: #### 5 0103 ####[facility] Hematocrit (Bld) [Volume fraction] 32.4 % Low 39.0-50.0 [facility] Comment on above: Order Comment: No: D o not add to previous draw Performed By: #### 5 0103 ####[facility] Hemoglobin (Bld) [Mass/Vol] 10.3 g/dL Low 13.0-17.0 [facility] Comment on above: Order Comment: No: D o not add to previous draw Performed By: #### 5 0103 ####[facility] IMMATURE GRANS 0.6 % Normal 0.0-1.0 [facility] Comment on above: Order Comment: No: D o not add to previous draw Performed By: #### 5 0103 ####[facility] Lymphocytes (Bld) [#/Vol] 2.2 10*3/uL Normal 1.2-4.0 [facility] Comment on above: Order Comment: No: D o not add to previous draw Performed By: #### 5 0103 ####[facility] Lymphocytes/100 WBC (Bld) 24.1 % Normal 20.0-45.0 [facility] Comment on above: Order Comment: No: D o not add to previous draw Performed By: #### 5 0103 ####[facility] MCH (RBC) [Entitic mass] 26.2 pg Low 27.0-33.0 [facility] Comment on above: Order Comment: No: D o not add to previous draw Performed By: #### 5 0103 ####[facility] MCHC (RBC) [Mass/Vol] 31.8 g/dL Low 32.0-35.0 [facility] Comment on above: Order Comment: No: D o not add to previous draw Performed By: #### 5 3 ####[facility] MCV (RBC) [Entitic vol] 82.4 fL Normal 82.0-98.0 [facility] Comment on above: Order Comment: No: D o not add to previous draw Performed By: #### 5 3 ####[facility] [place] [address], [facility] Monocytes (Bld) [#/Vol] 0.8 10*3/uL Normal 0.1-1.0 [facility] Comment on above: Order Comment: No: D o not add to previous draw Performed By: #### 5 3 ####[facility] MONOS 8.6 % Normal 5.0-12.0 [facility] Comment on above: Order Comment: No: D o not add to previous draw Performed By: #### 5 3 ####[facility] Neutrophils/100 WBC (Bld) 64.2 % Normal 40.0-72.0 [facility] Comment on above: Order Comment: No: D o not add to previous draw Performed By: #### 5 3 ####[facility] Nucleated RBC/100 WBC (Bld) [Ratio] 0 % Normal 0-0 [facility] Comment on above: Order Comment: No: D o not add to previous draw Performed By: #### 5 3 ####[facility] [place] [address], [facility] PLAT CNT 279 10*3/uL Normal 150-400 [facility] Comment on above: Order Comment: No: D o not add to previous draw Performed By: #### 5 3 ####[facility] [place] [address], [place] RBC (Bld) [#/Vol] 3.93 10*6/uL Low 4.20-5.70 [facility] Comment on above: Order Comment: No: D o not add to previous draw Performed By: #### 5 0103 ####[facility] [place] [address], [place] WBC (Bld) [#/Vol] 9.03 10*3/uL Normal 4.00-10.60 [facility] Comment on above: Order Comment: No: D o not add to previous draw Performed By: #### 5 0103 ####[facility] [facility] [place] [address], [place] FOOT RIGHT 3 VWSon 2 FOOT RIGHT 3 VWS Normal [facility] Comment on above: Order Comment: Infec tion POC GLUCOSE LABon 12-17-2021 Glucose [Mass/Vol] 356 mg/dL High 70-100 [facility] Comment on above: Performed By: #### 8 5499 ####[facility] [facility] [place] [address], [place] Glucose [Mass/Vol] 280 mg/dL High 70-100 [facility] Comment on above: Performed By: #### 8 5499 ####[facility] [place] [address], [place] Glucose [Mass/Vol] 203 mg/dL High 70-100 [facility] Comment on above: Performed By: #### 8 5499 ####[facility] [place] [address], [place] Glucose [Mass/Vol] 187 mg/dL High 70-100 [facility] Comment on above: Performed By: #### 8 5499 ####[facility] [place] [address], [facility] VENOUS BLOOD GASon BASE EXCESS 12 mmol/L Normal [facility] Comment on above: Performed By: #### 7 0069 ####[facility] [place] [address], [facility] HCO3 (Bld) [Moles/Vol] 39 mmol/L Normal [facility] Comment on above: Performed By: #### 7 0069 ####[facility] [place] [address], [place] Oxygen (Bld) [Partial pressure] 37 mm[Hg] Normal 35-45 [facility] Comment on above: Performed By: #### 7 0069 ####[facility] [place] [address], [facility] Oxygen saturation in Blood 61.0 % Low 65.0-75.0 [facility] Comment on above: Performed By: #### 7 0069 ####[facility] [place] [address], [facility] PCO2 62 mmHg Normal [facility] Comment on above: Performed By: #### 7 0069 ####[facility] [place] [address], [place] pH (Bld) 7.41 [pH] Normal 7.31-7.41 [facility] Comment on above: Performed By: #### 7 0069 ####[facility] [place] [address], [place] BASIC METABOLIC PANELon Calcium [Mass/Vol] 9.0 mg/dL Normal 8.6-10.3 [facility] Comment on above: Order Comment: No: D o not add to previous draw Performed By: #### 0 0071, 12253, 92584 ####[facility] [place] [address], [place] Chloride [Moles/Vol] 83 mmol/L Low 98-107 [facility] Comment on above: Order Comment: No: D o not add to previous draw Performed By: #### 0 0071, 73367, 86262 ####[facility] [facility] [address], [facility] CO2 [Moles/Vol] 39 mmol/L High 21-31 [facility] Comment on above: Order Comment: No: D o not add to previous draw Performed By: #### 0 0071, 65604, 23050 ####[facility] [place] [address], [facility] Creatinine [Mass/Vol] 1.36 mg/dL High 0.70-1.30 [facility] Comment on above: Order Comment: No: D o not add to previous draw Performed By: #### 0 0071, 32541, 48597 ####[facility] EGFR 60 ml/min/1.73sq m Abnormal >60 [facility] Comment on above: Order Comment: No: D o not add to previous draw Result Comment: [facility]'s estimated glomerularfiltration rate (eGFR) will no longer [...] of individuals. Performed By: #### 0 0071, 12568, 80061 ####[facility] [place] [address], [facility] Glucose [Mass/Vol] 287 mg/dL High 70-100 [facility] Comment on above: Order Comment: No: D o not add to previous draw Performed By: #### 0 0071, 30049, 73980 ####[facility] [place] [address], [facility] Potassium [Moles/Vol] 2.8 mmol/L Low 3.5-5.1 [facility] Comment on above: Order Comment: No: D o not add to previous draw Performed By: #### 0 0071, 96150, 31573 ####[facility] Sodium [Moles/Vol] 132 mmol/L Low 136-145 [facility] Comment on above: Order Comment: No: D o not add to previous draw Performed By: #### 0 0071, 97822, 80301 ####[facility] [facility] Urea nitrogen [Mass/Vol] 67 mg/dL High 7-25 [facility] Comment on above: Order Comment: No: D o not add to previous draw Performed By: #### 0 0071, 51482, 14266 ####[facility] CBC COMPLETE BLOOD COUNTon 0 12-16-2021 Erythrocyte distribution width (RBC) [Ratio] 14.1 % Normal 11.5-15.0 [facility] Comment on above: Order Comment: No: D o not add to previous draw Performed By: #### 5 0608 ####[facility] [place] [address], [facility] Hematocrit (Bld) [Volume fraction] 33.0 % Low 39.0-50.0 [facility] Comment on above: Order Comment: No: D o not add to previous draw Performed By: #### 5 0608 ####[facility] [id number], [facility] Hemoglobin (Bld) [Mass/Vol] 11.1 g/dL Low 13.0-17.0 [facility] Comment on above: Order Comment: No: D o not add to previous draw Performed By: #### 5 0608 ####[place] [address] MCH (RBC) [Entitic mass] 26.7 pg Low 27.0-33.0 [facility] Comment on above: Order Comment: No: D o not add to previous draw Performed By: #### 5 0608 ####[facility] MCHC (RBC) [Mass/Vol] 33.6 g/dL Normal 32.0-35.0 [facility] Comment on above: Order Comment: No: D o not add to previous draw Performed By: #### 5 0608 ####[address] MCV (RBC) [Entitic vol] 79.5 fL Low 82.0-98.0 [facility] Comment on above: Order Comment: No: D o not add to previous draw Performed By: #### 5 0608 ####[place] [address] Nucleated RBC/100 WBC (Bld) [Ratio] 0 % Normal 0-0 [facility] Comment on above: Order Comment: No: D o not add to previous draw Performed By: #### 5 0608 ####[facility] [place] [address] PLAT CNT 224 10*3/uL Normal 150-400 [facility] Comment on above: Order Comment: No: D o not add to previous draw Performed By: #### 5 0608 ####[address] RBC (Bld) [#/Vol] 4.15 10*6/uL Low 4.20-5.70 [facility] Comment on above: Order Comment: No: D o not add to previous draw Performed By: #### 5 0608 ####[facility] [place] [address], [facility] WBC (Bld) [#/Vol] 9.30 10*3/uL Normal 4.00-10.60 [facility] Comment on above: Order Comment: No: D o not add to previous draw Performed By: #### 5 0608 ####[facility] [place] [address], [place] MAGNESIUM BLOODon 12-16-2021 Magnesium [Mass/Vol] 2.5 mg/dL Normal 1.9-2.7 [facility] Comment on above: Order Comment: No: D o not add to previous draw Performed By: #### 0 0071, 21781, 94210 ####[facility] [place] [address], [facility] PHOSPHORUS BLOODon Phosphate [Mass/Vol] 5.6 mg/dL High 2.5-5.0 [facility] Comment on above: Order Comment: No: D o not add to previous draw Performed By: #### 0 0071, 52120, 34876 ####[facility] [place] [address], [place] POC GLUCOSE LABon 12-16-2021 Glucose [Mass/Vol] 450 mg/dL High 70-100 [facility] Comment on above: Performed By: #### 8 5499 ####[facility] [place] [address], [place] Glucose [Mass/Vol] 258 mg/dL High 70-100 [facility] Comment on above: Performed By: #### 8 5499 ####[facility] [place] [address], [place] Glucose [Mass/Vol] 291 mg/dL High 70-100 [facility] Comment on above: Performed By: #### 8 5499 ####[facility] [place] [address], [facility] Glucose [Mass/Vol] 279 mg/dL High 70-100 [facility] Comment on above: Performed By: #### 8 5499 ####[facility] [place] [address], [facility] POTASSIUM BLOODon 12-16-2021 Potassium [Moles/Vol] 3.3 mmol/L Low 3.5-5.1 [facility] Comment on above: Order Comment: No: D o not add to previous draw Performed By: #### 4 1406 ####[facility] [place] [address], [facility] ALBUMIN BLOODon 12-15-2021 Albumin [Mass/Vol] 4.1 g/dL Normal 3.5-5.7 [facility] Comment on above: Performed By: #### 2 0418, 36499, 35434 ####[facility] [place] [address], [facility] BASIC METABOLIC PANELon Calcium [Mass/Vol] 9.1 mg/dL Normal 8.6-10.3 [facility] Comment on above: Order Comment: No: D o not add to previous draw Performed By: #### 0 0071 ####[facility] [place] [address], [facility] Chloride [Moles/Vol] 82 mmol/L Low 98-107 [facility] Comment on above: Order Comment: No: D o not add to previous draw Performed By: #### 0 0071 ####[facility] [place] [address], [place] CO2 [Moles/Vol] 38 mmol/L High 21-31 [facility] Comment on above: Order Comment: No: D o not add to previous draw Performed By: #### 0 0071 ####[facility] [place] [address], [facility] Creatinine [Mass/Vol] 1.94 mg/dL High 0.70-1.30 [facility] Comment on above: Order Comment: No: D o not add to previous draw Performed By: #### 0 0071 ####[facility] [place] [address], [facility] EGFR 39 ml/min/1.73sq m Abnormal >60 [facility] Comment on above: Order Comment: No: D o not add to previous draw Result Comment: [facility]'s estimated glomerularfiltration rate (eGFR) will no longer [...] of individuals. Performed By: #### 0 0071 ####[facility] [place] [address], [facility] Glucose [Mass/Vol] 219 mg/dL High 70-100 [facility] Comment on above: Order Comment: No: D o not add to previous draw Performed By: #### 0 0071 ####[facility] [place] [address], [facility] Potassium [Moles/Vol] 2.8 mmol/L Low 3.5-5.1 [facility] Comment on above: Order Comment: No: D o not add to previous draw Performed By: #### 0 0071 ####[facility] [place] [address], [facility] Sodium [Moles/Vol] 132 mmol/L Low 136-145 [facility] Comment on above: Order Comment: No: D o not add to previous draw Performed By: #### 0 0071 ####[facility] [place] [address], [facility] Urea nitrogen [Mass/Vol] 65 mg/dL High 7-25 [facility] Comment on above: Order Comment: No: D o not add to previous draw Performed By: #### 0 0071 ####[facility] [place] [address], [facility] Calcium [Mass/Vol] 9.1 mg/dL Normal 8.6-10.3 [facility] Comment on above: Order Comment: No: D o not add to previous draw Performed By: #### 0 0071 ####[facility] [place] [address], [facility] Chloride [Moles/Vol] 83 mmol/L Low 98-107 [facility] Comment on above: Order Comment: No: D o not add to previous draw Performed By: #### 0 0071 ####[facility] [place] [address], [facility] CO2 [Moles/Vol] 38 mmol/L High 21-31 [facility] Comment on above: Order Comment: No: D o not add to previous draw Performed By: #### 0 0071 ####[facility] [place] [address], [facility] Creatinine [Mass/Vol] 1.74 mg/dL High 0.70-1.30 [facility] Comment on above: Order Comment: No: D o not add to previous draw Performed By: #### 0 0071 ####[facility] [place] [address], [facility] EGFR 44 ml/min/1.73sq m Abnormal >60 [facility] Comment on above: Order Comment: No: D o not add to previous draw Result Comment: [facility]'s estimated glomerularfiltration rate (eGFR) will no longer [...] of individuals. Performed By: #### 0 0071 ####[facility] [place] [address], [facility] Glucose [Mass/Vol] 253 mg/dL High 70-100 [facility] Comment on above: Order Comment: No: D o not add to previous draw Performed By: #### 0 0071 ####[facility] [place] [address], [facility] Potassium [Moles/Vol] 2.9 mmol/L Low 3.5-5.1 [facility] Comment on above: Order Comment: No: D o not add to previous draw Performed By: #### 0 0071 ####[facility] [facility] [place] [address], [facility] Sodium [Moles/Vol] 133 mmol/L Low 136-145 [facility] Comment on above: Order Comment: No: D o not add to previous draw Performed By: #### 0 0071 ####[facility] [facility] [place] [address], [facility] Urea nitrogen [Mass/Vol] 65 mg/dL High 7-25 [facility] Comment on above: Order Comment: No: D o not add to previous draw Performed By: #### 0 0071 ####[facility] [place] [address], [facility] Calcium [Mass/Vol] 9.2 mg/dL Normal 8.6-10.3 [facility] Comment on above: Order Comment: No: D o not add to previous draw Performed By: #### 2 0418, 06405, 89755 ####[facility] [place] [address], [facility] Chloride [Moles/Vol] 80 mmol/L Low 98-107 [facility] Comment on above: Order Comment: No: D o not add to previous draw Performed By: #### 2 0418, 82119, 42296 ####[facility] [place] [address], [facility] CO2 [Moles/Vol] 38 mmol/L High 21-31 [facility] Comment on above: Order Comment: No: D o not add to previous draw Performed By: #### 2 0418, 86241, 68024 ####[facility] [place] [address], [facility] Creatinine [Mass/Vol] 1.39 mg/dL High 0.70-1.30 [facility] Comment on above: Order Comment: No: D o not add to previous draw Performed By: #### 2 0418, , 10986 ####[facility] EGFR 58 ml/min/1.73sq m Abnormal >60 [facility] Comment on above: Order Comment: No: D o not add to previous draw Result Comment: [facility]'s estimated glomerularfiltration rate (eGFR) will no longer [...] onegroup of individuals. Performed By: #### 2 0418, 05361, 08355 ####[facility] [place] [address], [facility] Glucose [Mass/Vol] 286 mg/dL High 70-100 [facility] Comment on above: Order Comment: No: D o not add to previous draw Performed By: #### 2 0418, 13178, 02059 ####[facility] [place] [address], [facility] Potassium [Moles/Vol] 3.1 mmol/L Low 3.5-5.1 [facility] Comment on above: Order Comment: No: D o not add to previous draw Performed By: #### 2 0418, 84210, 05566 ####[facility] [place] [address], [facility] Sodium [Moles/Vol] 133 mmol/L Low 136-145 [facility] Comment on above: Order Comment: No: D o not add to previous draw Performed By: #### 2 0418, 17770, 91171 ####[facility] [place] [address], [facility] Urea nitrogen [Mass/Vol] 62 mg/dL High 7-25 [facility] Comment on above: Order Comment: No: D o not add to previous draw Performed By: #### 2 0418, 74222, 66763 ####[facility] CBC COMPLETE BLOOD COUNTon 0 - Erythrocyte distribution width (RBC) [Ratio] 14.2 % Normal 11.5-15.0 [facility] Comment on above: Order Comment: No: D o not add to previous draw Performed By: #### 5 0608 ####[facility] [place] [address], [facility] Hematocrit (Bld) [Volume fraction] 36.3 % Low 39.0-50.0 [facility] Comment on above: Order Comment: No: D o not add to previous draw Performed By: #### 5 0608 ####[facility] Hemoglobin (Bld) [Mass/Vol] 11.6 g/dL Low 13.0-17.0 [facility] Comment on above: Order Comment: No: D o not add to previous draw Performed By: #### 5 0608 ####[address] MCH (RBC) [Entitic mass] 26.1 pg Low 27.0-33.0 [facility] Comment on above: Order Comment: No: D o not add to previous draw Performed By: #### 5 0608 ####[address] MCHC (RBC) [Mass/Vol] 32.0 g/dL Normal 32.0-35.0 [facility] Comment on above: Order Comment: No: D o not add to previous draw Performed By: #### 5 0608 ####[address] MCV (RBC) [Entitic vol] 81.8 fL Low 82.0-98.0 [facility] Comment on above: Order Comment: No: D o not add to previous draw Performed By: #### 5 0608 ####[address] Nucleated RBC/100 WBC (Bld) [Ratio] 0 % Normal 0-0 [facility] Comment on above: Order Comment: No: D o not add to previous draw Performed By: #### 5 0608 ####[address] PLAT CNT 461 10*3/uL High 150-400 [facility] Comment on above: Order Comment: No: D o not add to previous draw Performed By: #### 5 0608 ####[facility] [place] [address], [facility] RBC (Bld) [#/Vol] 4.44 10*6/uL Normal 4.20-5.70 [facility] Comment on above: Order Comment: No: D o not add to previous draw Performed By: #### 5 0608 ####[facility] [place] [address], [place] WBC (Bld) [#/Vol] 14.85 10*3/uL High 4.00-10.60 [facility] Comment on above: Order Comment: No: D o not add to previous draw Performed By: #### 5 0608 ####[facility] [place] [address], [facility] MAGNESIUM BLOODon 12-15-2021 Magnesium [Mass/Vol] 2.1 mg/dL Normal 1.9-2.7 [facility] Comment on above: Order Comment: No: D o not add to previous draw Performed By: #### 2 0418, 64908, 23515 ####[facility] [facility] [place] [address], [facility] POC GLUCOSE LABon 12-15-2021 Glucose [Mass/Vol] 235 mg/dL High 70-100 [facility] Comment on above: Performed By: #### 8 5499 ####[facility] [facility] [place] [address], [place] Glucose [Mass/Vol] 324 mg/dL High 70-100 [facility] Comment on above: Performed By: #### 8 5499 ####[facility] [facility] [place] [address], [place] Glucose [Mass/Vol] 312 mg/dL High 70-100 [facility] Comment on above: Performed By: #### 8 5499 ####[facility] [place] [address], [facility] Glucose [Mass/Vol] 282 mg/dL High 70-100 [facility] Comment on above: Performed By: #### 8 5499 ####[facility] [place] [address], [facility] BASIC METABOLIC PANELon 08-0 -2021 Calcium [Mass/Vol] 9.2 mg/dL Normal 8.6-10.3 [facility] Comment on above: Order Comment: No: D o not add to previous draw Performed By: #### 0 0071, 30222 ####[facility] [place] [address], [facility] Chloride [Moles/Vol] 86 mmol/L Low 98-107 [facility] Comment on above: Order Comment: No: D o not add to previous draw Performed By: #### 0 0071, 34232 ####[facility] [place] [address], [facility] CO2 [Moles/Vol] 39 mmol/L High 21-31 [facility] Comment on above: Order Comment: No: D o not add to previous draw Performed By: #### 0 0071, 96974 ####[facility] [place] [address], [facility] Creatinine [Mass/Vol] 1.38 mg/dL High 0.70-1.30 [facility] Comment on above: Order Comment: No: D o not add to previous draw Performed By: #### 0 0071, 53287 ####[facility] [place] [address], [facility] EGFR 59 ml/min/1.73sq m Abnormal >60 [facility] Comment on above: Order Comment: No: D o not add to previous draw Result Comment: [facility]'s estimated glomerularfiltration rate (eGFR) will no longer [...] of individuals. Performed By: #### 0 0071, 77368 ####[facility] [place] [address], [facility] Glucose [Mass/Vol] 195 mg/dL High 70-100 [facility] Comment on above: Order Comment: No: D o not add to previous draw Performed By: #### 0 0071, 44230 ####[place] [address] [place] [address], [facility] Potassium [Moles/Vol] 2.8 mmol/L Low 3.5-5.1 [facility] Comment on above: Order Comment: No: D o not add to previous draw Performed By: #### 0 0071, [id number] ####[address] [address], [facility] Sodium [Moles/Vol] 137 mmol/L Normal 136-145 [facility] Comment on above: Order Comment: No: D o not add to previous draw Performed By: #### 0 0071, 41956 ####[address] [address], [facility] Urea nitrogen [Mass/Vol] 57 mg/dL High 7-25 [facility] Comment on above: Order Comment: No: D o not add to previous draw Performed By: #### 0 0071, 64102 ####[address] CBC COMPLETE BLOOD COUNTon 0 12-14-2021 Erythrocyte distribution width (RBC) [Ratio] 14.0 % Normal 11.5-15.0 [facility] Comment on above: Order Comment: No: D o not add to previous draw Performed By: #### 5 0608 ####[facility] Hematocrit (Bld) [Volume fraction] 37.4 % Low 39.0-50.0 [facility] Comment on above: Order Comment: No: D o not add to previous draw Performed By: #### 5 0608 ####[facility] [place] [address] Hemoglobin (Bld) [Mass/Vol] 11.8 g/dL Low 13.0-17.0 [facility] Comment on above: Order Comment: No: D o not add to previous draw Performed By: #### 5 0608 ####[address] MCH (RBC) [Entitic mass] 25.9 pg Low 27.0-33.0 [facility] Comment on above: Order Comment: No: D o not add to previous draw Performed By: #### 5 0608 ####[address] MCHC (RBC) [Mass/Vol] 31.6 g/dL Low 32.0-35.0 [facility] Comment on above: Order Comment: No: D o not add to previous draw Performed By: #### 5 0608 ####[address] MCV (RBC) [Entitic vol] 82.2 fL Normal 82.0-98.0 [facility] Comment on above: Order Comment: No: D o not add to previous draw Performed By: #### 5 0608 ####[address] Nucleated RBC/100 WBC (Bld) [Ratio] 0 % Normal 0-0 [facility] Comment on above: Order Comment: No: D o not add to previous draw Performed By: #### 5 0608 ####[facility] [facility] [address], [facility] PLAT CNT 369 10*3/uL Normal 150-400 [facility] Comment on above: Order Comment: No: D o not add to previous draw Performed By: #### 5 0608 ####[facility] [facility] [address], [facility] RBC (Bld) [#/Vol] 4.55 10*6/uL Normal 4.20-5.70 [facility] Comment on above: Order Comment: No: D o not add to previous draw Performed By: #### 5 0608 ####[facility] [place] [address], [facility] WBC (Bld) [#/Vol] 13.86 10*3/uL High 4.00-10.60 [facility] Comment on above: Order Comment: No: D o not add to previous draw Performed By: #### 5 0608 ####[facility] [place] [address], [facility] MAGNESIUM BLOODon 12-14-2021 Magnesium [Mass/Vol] 1.9 mg/dL Normal 1.9-2.7 [facility] Comment on above: Order Comment: No: D o not add to previous draw Performed By: #### 0 0071, 64897 ####[facility] [place] [address], [facility] POC GLUCOSE LABon 12-14-2021 Glucose [Mass/Vol] 271 mg/dL High 70-100 [facility] Comment on above: Performed By: #### 8 5499 ####[facility] [place] [address], [facility] Glucose [Mass/Vol] 487 mg/dL High 70-100 [facility] Comment on above: Performed By: #### 8 5499 ####[facility] [place] [address], [facility] Glucose [Mass/Vol] 258 mg/dL High 70-100 [facility] Comment on above: Performed By: #### 8 5499 ####[facility] [facility] [place] [address], [facility] Glucose [Mass/Vol] 240 mg/dL High 70-100 [facility] Comment on above: Performed By: #### 8 5499 ####[facility] [place] [address], [facility] VENOUS BLOOD GASon 2 BASE EXCESS 21 mmol/L Normal [facility] Comment on above: Order Comment: RESUL TS CHECKED AND CALLED. ACCURATELY READ BACK BY TO Eve OLMSTEAD RN. Result Comment: RESU LTS CHECKED AND CALLED. ACCURATELY READ BACK BY TO Eve OLMSTEAD RN. Performed By: #### 7 0069 ####[facility] [place] [address], [facility] HCO3 (Bld) [Moles/Vol] 47 mmol/L Normal [facility] Comment on above: Order Comment: RESUL TS CHECKED AND CALLED. ACCURATELY READ BACK BY TO Eve OLMSTEAD RN. Result Comment: RESU LTS CHECKED AND CALLED. ACCURATELY READ BACK BY TO Eve OLMSTEAD RN. Performed By: #### 7 0069 ####[facility] [place] [address], [facility] Oxygen (Bld) [Partial pressure] 34 mm[Hg] Low 35-45 [facility] Comment on above: Order Comment: RESUL TS CHECKED AND CALLED. ACCURATELY READ BACK BY TO Eve OLMSTEAD RN. Result Comment: RESU LTS CHECKED AND CALLED. ACCURATELY READ BACK BY TO Eve OLMSTEAD RN. Performed By: #### 7 0069 ####[facility] [place] [address].[place] [address], [facility] Oxygen saturation in Blood 54.0 % Low 65.0-75.0 [facility] Comment on above: Order Comment: RESUL TS CHECKED AND CALLED. ACCURATELY READ BACK BY TO Eve OLMSTEAD RN. Result Comment: RESU LTS CHECKED AND CALLED. ACCURATELY READ BACK BY TO Eve OLMSTEAD RN. Performed By: #### 7 0069 ####[facility] [place] [address], [facility] PCO2 58 mmHg Normal [facility] Comment on above: Order Comment: RESUL TS CHECKED AND CALLED. ACCURATELY READ BACK BY TO Eve OLMSTEAD RN. Result Comment: RESU LTS CHECKED AND CALLED. ACCURATELY READ BACK BY TO Eve OLMSTEAD RN. Performed By: #### 7 0069 ####[facility] pH (Bld) 7.52 [pH] High 7.31-7.41 [facility] Comment on above: Order Comment: RESUL TS CHECKED AND CALLED. ACCURATELY READ BACK BY TO Eve OLMSTEAD RN. Result Comment: RESU LTS CHECKED AND CALLED. ACCURATELY READ BACK BY TO Eve OLMSTEAD RN. Performed By: #### 7 0069 ####[facility] BASIC METABOLIC PANELon 08-0 -2021 Calcium [Mass/Vol] 9.3 mg/dL Normal 8.6-10.3 [facility] Comment on above: Order Comment: No: D o not add to previous draw Performed By: #### 1 69, 15662 ####[facility] [place] [address], [facility] Chloride [Moles/Vol] 89 mmol/L Low 98-107 [facility] Comment on above: Order Comment: No: D o not add to previous draw Performed By: #### 1 69, 48768 ####[facility] [place] [address], [facility] CO2 [Moles/Vol] 35 mmol/L High 21-31 [facility] Comment on above: Order Comment: No: D o not add to previous draw Performed By: #### 1 69, 88163 ####[facility] [place] [address], [facility] Creatinine [Mass/Vol] 1.39 mg/dL High 0.70-1.30 [facility] Comment on above: Order Comment: No: D o not add to previous draw Performed By: #### 1 69, 25918 ####[facility] [place] [address], [facility] EGFR 58 ml/min/1.73sq m Abnormal >60 [facility] Comment on above: Order Comment: No: D o not add to previous draw Result Comment: [facility]'s estimated glomerularfiltration rate (eGFR) will no longer [...] of individuals. Performed By: #### 1 69, 14869 ####[facility] [place] [address], [facility] Glucose [Mass/Vol] 300 mg/dL High 70-100 [facility] Comment on above: Order Comment: No: D o not add to previous draw Performed By: #### 1 69, 40509 ####[facility] [place] [address], [facility] Potassium [Moles/Vol] 3.7 mmol/L Normal 3.5-5.1 [facility] Comment on above: Order Comment: No: D o not add to previous draw Performed By: #### 1 69, 06126 ####[facility] [facility] Sodium [Moles/Vol] 135 mmol/L Low 136-145 [facility] Comment on above: Order Comment: No: D o not add to previous draw Performed By: #### 1 0, 29608 ####[facility] Urea nitrogen [Mass/Vol] 50 mg/dL High 7-25 [facility] Comment on above: Order Comment: No: D o not add to previous draw Performed By: #### 1 69, 27515 ####[facility] CBC COMPLETE BLOOD COUNTon 0 12-13-2021 Erythrocyte distribution width (RBC) [Ratio] 14.1 % Normal 11.5-15.0 [facility] Comment on above: Order Comment: No: D o not add to previous draw Performed By: #### 5 0608 ####[facility] Hematocrit (Bld) [Volume fraction] 37.9 % Low 39.0-50.0 [facility] Comment on above: Order Comment: No: D o not add to previous draw Performed By: #### 5 0608 ####[address] Hemoglobin (Bld) [Mass/Vol] 12.3 g/dL Low 13.0-17.0 [facility] Comment on above: Order Comment: No: D o not add to previous draw Performed By: #### 5 0608 ####[address] MCH (RBC) [Entitic mass] 26.1 pg Low 27.0-33.0 [facility] Comment on above: Order Comment: No: D o not add to previous draw Performed By: #### 5 0608 ####[address] MCHC (RBC) [Mass/Vol] 32.5 g/dL Normal 32.0-35.0 [facility] Comment on above: Order Comment: No: D o not add to previous draw Performed By: #### 5 0608 ####[address] [place] [address], [facility] MCV (RBC) [Entitic vol] 80.5 fL Low 82.0-98.0 [facility] Comment on above: Order Comment: No: D o not add to previous draw Performed By: #### 5 0608 ####[address] Nucleated RBC/100 WBC (Bld) [Ratio] 0 % Normal 0-0 [facility] Comment on above: Order Comment: No: D o not add to previous draw Performed By: #### 5 0608 ####[address] [place] [address], [facility] PLAT CNT 379 10*3/uL Normal 150-400 [facility] Comment on above: Order Comment: No: D o not add to previous draw Performed By: #### 5 0608 ####[address] RBC (Bld) [#/Vol] 4.71 10*6/uL Normal 4.20-5.70 [facility] Comment on above: Order Comment: No: D o not add to previous draw Performed By: #### 5 0608 ####[address] [place] [address], [facility] WBC (Bld) [#/Vol] 11.29 10*3/uL High 4.00-10.60 [facility] Comment on above: Order Comment: No: D o not add to previous draw Performed By: #### 5 0608 ####[address] [place] [address], [facility] MAGNESIUM BLOODon 12-13-2021 Magnesium [Mass/Vol] 2.0 mg/dL Normal 1.9-2.7 [facility] Comment on above: Order Comment: No: D o not add to previous draw Performed By: #### 1 0070, 67614 ####[facility] [place] [address], [facility] POC GLUCOSE LABon 12-13-2021 Glucose [Mass/Vol] 172 mg/dL High 70-100 [facility] Comment on above: Performed By: #### 8 5499 ####[facility] [place] [address], [facility] Glucose [Mass/Vol] 252 mg/dL High 70-100 [facility] Comment on above: Performed By: #### 8 5499 ####[facility] [place] [address], [facility] Glucose [Mass/Vol] 333 mg/dL High 70-100 [facility] Comment on above: Performed By: #### 8 5499 ####[facility] [place] [address], [facility] Glucose [Mass/Vol] 287 mg/dL High 70-100 [facility] Comment on above: Performed By: #### 8 5499 ####[facility] [place] [address], [facility] BASIC METABOLIC PANELon Calcium [Mass/Vol] 8.9 mg/dL Normal 8.6-10.3 [facility] Comment on above: Order Comment: No: D o not add to previous draw Performed By: #### 0 0071 ####[facility] [place] [address], [facility] Chloride [Moles/Vol] 92 mmol/L Low 98-107 [facility] Comment on above: Order Comment: No: D o not add to previous draw Performed By: #### 0 0071 ####[facility] [facility] [place] [address], [facility] CO2 [Moles/Vol] 32 mmol/L High 21-31 [facility] Comment on above: Order Comment: No: D o not add to previous draw Performed By: #### 0 0071 ####[facility] [facility] [place] [address], [facility] Creatinine [Mass/Vol] 1.48 mg/dL High 0.70-1.30 [facility] Comment on above: Order Comment: No: D o not add to previous draw Performed By: #### 0 0071 ####[facility] [place] [address], [facility] EGFR 54 ml/min/1.73sq m Abnormal >60 [facility] Comment on above: Order Comment: No: D o not add to previous draw Result Comment: [facility]'s estimated glomerularfiltration rate (eGFR) will no longer [...] of individuals. Performed By: #### 0 0071 ####[facility] [place] [address], [facility] Glucose [Mass/Vol] 171 mg/dL High 70-100 [facility] Comment on above: Order Comment: No: D o not add to previous draw Performed By: #### 0 0071 ####[facility] [facility] [place] [address], [facility] Potassium [Moles/Vol] 3.0 mmol/L Low 3.5-5.1 [facility] Comment on above: Order Comment: No: D o not add to previous draw Performed By: #### 0 0071 ####[facility] Sodium [Moles/Vol] 135 mmol/L Low 136-145 [facility] Comment on above: Order Comment: No: D o not add to previous draw Performed By: #### 0 0071 ####[facility] Urea nitrogen [Mass/Vol] 45 mg/dL High 7-25 [facility] Comment on above: Order Comment: No: D o not add to previous draw Performed By: #### 0 0071 ####[facility] CBC COMPLETE BLOOD COUNTon 0 12-12-2021 Erythrocyte distribution width (RBC) [Ratio] 13.8 % Normal 11.5-15.0 [facility] Comment on above: Order Comment: No: D o not add to previous draw Performed By: #### 5 0608 ####[facility] Hematocrit (Bld) [Volume fraction] 36.2 % Low 39.0-50.0 [facility] Comment on above: Order Comment: No: D o not add to previous draw Performed By: #### 5 0608 ####[facility] [place] [address], [facility] Hemoglobin (Bld) [Mass/Vol] 11.3 g/dL Low 13.0-17.0 [facility] Comment on above: Order Comment: No: D o not add to previous draw Performed By: #### 5 0608 ####[facility] [place] [address], [facility] MCH (RBC) [Entitic mass] 25.7 pg Low 27.0-33.0 [facility] Comment on above: Order Comment: No: D o not add to previous draw Performed By: #### 5 0608 ####[facility] MCHC (RBC) [Mass/Vol] 31.2 g/dL Low 32.0-35.0 [facility] Comment on above: Order Comment: No: D o not add to previous draw Performed By: #### 5 0608 ####[facility] MCV (RBC) [Entitic vol] 82.5 fL Normal 82.0-98.0 [facility] Comment on above: Order Comment: No: D o not add to previous draw Performed By: #### 5 0608 ####[address] Nucleated RBC/100 WBC (Bld) [Ratio] 0 % Normal 0-0 [facility] Comment on above: Order Comment: No: D o not add to previous draw Performed By: #### 5 0608 ####[address] PLAT CNT 361 10*3/uL Normal 150-400 [facility] Comment on above: Order Comment: No: D o not add to previous draw Performed By: #### 5 0608 ####[facility] [place] [address] RBC (Bld) [#/Vol] 4.39 10*6/uL Normal 4.20-5.70 [facility] Comment on above: Order Comment: No: D o not add to previous draw Performed By: #### 5 0608 ####[facility] [place] [address], [facility] WBC (Bld) [#/Vol] 12.04 10*3/uL High 4.00-10.60 [facility] Comment on above: Order Comment: No: D o not add to previous draw Performed By: #### 5 0608 ####[facility] [place] [address], [facility] CREATININE URINE RANDOMon Creatinine (U) [Mass/Vol] 37.0 mg/dL Normal [facility] Comment on above: Order Comment: No: D o not add to previous draw Result Comment: Ther e are no established reference values for random urine specimens Performed By: #### 4 1802, 94252, 30409, 09988 ####[facility] [place] [address], [facility] POC GLUCOSE LABon 12-12-2021 Glucose [Mass/Vol] 276 mg/dL High 70-100 [facility] Comment on above: Performed By: #### 8 5499 ####[facility] [place] [address], [place] Glucose [Mass/Vol] 411 mg/dL High 70-100 [facility] Comment on above: Performed By: #### 8 5499 ####[facility] [place] [address], [place] Glucose [Mass/Vol] 371 mg/dL High 70-100 [facility] Comment on above: Order Comment: NOTE: Result Checked Performed By: #### 8 5499 ####[facility] [place] [address], [place] Glucose [Mass/Vol] 184 mg/dL High 70-100 [facility] Comment on above: Performed By: #### 8 5499 ####[facility] [place] [address], [place] POTASSIUM URon 12-12-2021 Potassium [Moles/Vol] 42.0 mmol/L Normal [facility] Comment on above: Order Comment: No: D o not add to previous draw Result Comment: Ther e are no established reference values for random urine specimens Performed By: #### 4 1802, 98516, 53121, 29520 ####[facility] [place] [address], [facility] SODIUM URINE RANDOMon 2021 Sodium (U) [Moles/Vol] 64 mmol/L Normal [facility] Comment on above: Order Comment: No: D o not add to previous draw Result Comment: Ther e are no established reference values for random urine specimens Performed By: #### 4 1802, 77918, 96739, 44368 ####[facility] [facility] [place] [address], [facility] T PROT UR Navin 12-12-2021 U TOTAL PROTEIN 14.2 mg/dL Normal [facility] Comment on above: Order Comment: No: D o not add to previous draw Result Comment: Ther e are no established reference values for random urine specimens Performed By: #### 4 1802, 89166, 72485, 56484 ####[facility] [facility] [place] [address], [facility] BASIC METABOLIC PANELon 08 Calcium [Mass/Vol] 8.8 mg/dL Normal 8.6-10.3 [facility] Comment on above: Order Comment: No: D o not add to previous draw Performed By: #### 0 0071 ####[facility] [place] [address], [facility] Chloride [Moles/Vol] 95 mmol/L Low 98-107 [facility] Comment on above: Order Comment: No: D o not add to previous draw Performed By: #### 0 0071 ####[facility] [place] [address], [facility] CO2 [Moles/Vol] 32 mmol/L High 21-31 [facility] Comment on above: Order Comment: No: D o not add to previous draw Performed By: #### 0 0071 ####[facility] [facility] [place] [address], [facility] Creatinine [Mass/Vol] 1.05 mg/dL Normal 0.70-1.30 [facility] Comment on above: Order Comment: No: D o not add to previous draw Performed By: #### 0 0071 ####[facility] [facility] [place] [address], [facility] GFR/1.73 sq M.predicted among non-blacks MDRD (S/P/Bld) [Vol rate/Area] mL/min/{1.73_m2} Normal >60 [facility] Comment on above: Order Comment: No: D o not add to previous draw Result Comment: [facility]'s estimated glomerularfiltration rate (eGFR) will no longer [...] of individuals. Performed By: #### 0 0071 ####[facility] [place] [address], [facility] Glucose [Mass/Vol] 202 mg/dL High 70-100 [facility] Comment on above: Order Comment: No: D o not add to previous draw Performed By: #### 0 0071 ####[facility] [place] [address], [facility] Potassium [Moles/Vol] 4.4 mmol/L Normal 3.5-5.1 [facility] Comment on above: Order Comment: No: D o not add to previous draw Performed By: #### 0 0071 ####[facility] [facility] [place] [address], [facility] Sodium [Moles/Vol] 134 mmol/L Low 136-145 [facility] Comment on above: Order Comment: No: D o not add to previous draw Performed By: #### 0 0071 ####[facility] [place] [address], [place] Urea nitrogen [Mass/Vol] 34 mg/dL High 7-25 [facility] Comment on above: Order Comment: No: D o not add to previous draw Performed By: #### 0 0071 ####[facility] [place] [address], [place] POC GLUCOSE LABon 12-11-2021 Glucose [Mass/Vol] 363 mg/dL High 70-100 [facility] Comment on above: Performed By: #### 8 5499 ####[facility] [place] [address], [place] Glucose [Mass/Vol] 274 mg/dL High 70-100 [facility] Comment on above: Performed By: #### 8 5499 ####[facility] [place] [address], [place] Glucose [Mass/Vol] 218 mg/dL High 70-100 [facility] Comment on above: Performed By: #### 8 5499 ####[facility] [place] [address], [place] Glucose [Mass/Vol] 183 mg/dL High 70-100 [facility] Comment on above: Performed By: #### 8 5499 ####[facility] [place] [address], [place] BASIC METABOLIC PANELon Calcium [Mass/Vol] 8.7 mg/dL Normal 8.6-10.3 [facility] Comment on above: Order Comment: No: D o not add to previous draw Performed By: #### 0 0071, 59807 ####[facility] [place] [address], [facility] Chloride [Moles/Vol] 97 mmol/L Low 98-107 [facility] Comment on above: Order Comment: No: D o not add to previous draw Performed By: #### 0 0071, 57490 ####[facility] [facility] [place] [address], [facility] CO2 [Moles/Vol] 32 mmol/L High 21-31 [facility] Comment on above: Order Comment: No: D o not add to previous draw Performed By: #### 0 0071, 24088 ####[facility] [place] [address], [facility] Creatinine [Mass/Vol] 1.14 mg/dL Normal 0.70-1.30 [facility] Comment on above: Order Comment: No: D o not add to previous draw Performed By: #### 0 0071, [id number] ####[place] [id number] .[place] [address], [facility] GFR/1.73 sq M.predicted among non-blacks MDRD (S/P/Bld) [Vol rate/Area] mL/min/{1.73_m2} Normal >60 [facility] Comment on above: Order Comment: No: D o not add to previous draw Result Comment: [facility]'s estimated glomerularfiltration rate (eGFR) will no longer [...] of individuals. Performed By: #### 0 0071, [id number] ####[facility] [place] [address], [place] Glucose [Mass/Vol] 153 mg/dL High 70-100 [facility] Comment on above: Order Comment: No: D o not add to previous draw Performed By: #### 0 0071, [id number] ####[facility] [place] [address], [facility] Potassium [Moles/Vol] 3.8 mmol/L Normal 3.5-5.1 [facility] Comment on above: Order Comment: No: D o not add to previous draw Performed By: #### 0 0071, [id number] ####[facility] [place] [address], [place] Sodium [Moles/Vol] 136 mmol/L Normal 136-145 [facility] Comment on above: Order Comment: No: D o not add to previous draw Performed By: #### 0 0071, [id number] ####[facility] [place] [address], [facility] Urea nitrogen [Mass/Vol] 35 mg/dL High 7-25 [facility] Comment on above: Order Comment: No: D o not add to previous draw Performed By: #### 0 0071, [id number] ####[facility] [place] [address], [place] MAGNESIUM BLOODon 12-10-2021 Magnesium [Mass/Vol] 2.3 mg/dL Normal 1.9-2.7 [facility] Comment on above: Order Comment: No: D o not add to previous draw Performed By: #### 0 0071, [id number] ####[facility] [place] [address], [place] POC GLUCOSE LABon 12-10-2021 Glucose [Mass/Vol] 286 mg/dL High 70-100 [facility] Comment on above: Performed By: #### 8 5499 ####[facility] [place] [address], [place] Glucose [Mass/Vol] 198 mg/dL High 70-100 [facility] Comment on above: Performed By: #### 8 5499 ####[facility] [place] [address], [place] Glucose [Mass/Vol] 270 mg/dL High 70-100 [facility] Comment on above: Performed By: #### 8 5499 ####[facility] [place] [address], [place] Glucose [Mass/Vol] 235 mg/dL High 70-100 [facility] Comment on above: Performed By: #### 8 5499 ####[facility] [place] [address], [facility] BASIC METABOLIC PANELon 08-0 Calcium [Mass/Vol] 8.9 mg/dL Normal 8.6-10.3 [facility] Comment on above: Order Comment: No: D o not add to previous draw Performed By: #### 0 0071 ####[facility] [place] [address], [place] Chloride [Moles/Vol] 97 mmol/L Low 98-107 [facility] Comment on above: Order Comment: No: D o not add to previous draw Performed By: #### 0 0071 ####[facility] [place] [address], [place] CO2 [Moles/Vol] 29 mmol/L Normal 21-31 [facility] Comment on above: Order Comment: No: D o not add to previous draw Performed By: #### 0 0071 ####[facility] [place] [address], [place] Creatinine [Mass/Vol] 0.92 mg/dL Normal 0.70-1.30 [facility] Comment on above: Order Comment: No: D o not add to previous draw Performed By: #### 0 0071 ####[facility] [place] [address], [facility] GFR/1.73 sq M.predicted among non-blacks MDRD (S/P/Bld) [Vol rate/Area] mL/min/{1.73_m2} Normal >60 [facility] Comment on above: Order Comment: No: D o not add to previous draw Result Comment: [facility]'s estimated glomerularfiltration rate (eGFR) will no longer [...] of individuals. Performed By: #### 0 0071 ####[facility] [place] [address], [facility] Glucose [Mass/Vol] 191 mg/dL High 70-100 [facility] Comment on above: Order Comment: No: D o not add to previous draw Performed By: #### 0 0071 ####[facility] [place] [address], [facility] Potassium [Moles/Vol] 4.3 mmol/L Normal 3.5-5.1 [facility] Comment on above: Order Comment: No: D o not add to previous draw Performed By: #### 0 0071 ####[facility] [place] [address], [facility] Sodium [Moles/Vol] 134 mmol/L Low 136-145 [facility] Comment on above: Order Comment: No: D o not add to previous draw Performed By: #### 0 0071 ####[facility] [place] [address], [facility] Urea nitrogen [Mass/Vol] 34 mg/dL High 7-25 [facility] Comment on above: Order Comment: No: D o not add to previous draw Performed By: #### 0 0071 ####[facility] CBC COMPLETE BLOOD COUNTon 0 12-09-2021 Erythrocyte distribution width (RBC) [Ratio] 13.6 % Normal 11.5-15.0 [facility] Comment on above: Order Comment: No: D o not add to previous draw Performed By: #### 5 0608 ####[facility] Hematocrit (Bld) [Volume fraction] 33.9 % Low 39.0-50.0 [facility] Comment on above: Order Comment: No: D o not add to previous draw Performed By: #### 5 0608 ####[facility] Hemoglobin (Bld) [Mass/Vol] 10.6 g/dL Low 13.0-17.0 [facility] Comment on above: Order Comment: No: D o not add to previous draw Performed By: #### 5 0608 ####[facility] [place] [address], [facility] MCH (RBC) [Entitic mass] 26.2 pg Low 27.0-33.0 [facility] Comment on above: Order Comment: No: D o not add to previous draw Performed By: #### 5 0608 ####[facility] [place] [address], [facility] MCHC (RBC) [Mass/Vol] 31.3 g/dL Low 32.0-35.0 [facility] Comment on above: Order Comment: No: D o not add to previous draw Performed By: #### 5 0608 ####[facility] [place] [address], [facility] MCV (RBC) [Entitic vol] 83.7 fL Normal 82.0-98.0 [facility] Comment on above: Order Comment: No: D o not add to previous draw Performed By: #### 5 0608 ####[facility] [place] [address], [facility] Nucleated RBC/100 WBC (Bld) [Ratio] 0 % Normal 0-0 [facility] Comment on above: Order Comment: No: D o not add to previous draw Performed By: #### 5 0608 ####[facility] [place] [address], [facility] PLAT CNT 384 10*3/uL Normal 150-400 [facility] Comment on above: Order Comment: No: D o not add to previous draw Performed By: #### 5 0608 ####[facility] [place] [address], [facility] RBC (Bld) [#/Vol] 4.05 10*6/uL Low 4.20-5.70 [facility] Comment on above: Order Comment: No: D o not add to previous draw Performed By: #### 5 0608 ####[facility] [place] [address], [facility] WBC (Bld) [#/Vol] 8.01 10*3/uL Normal 4.00-10.60 [facility] Comment on above: Order Comment: No: D o not add to previous draw Performed By: #### 5 0608 ####[facility] [place] [address], [facility] POC GLUCOSE LABon 12-09-2021 Glucose [Mass/Vol] 343 mg/dL High 70-100 [facility] Comment on above: Performed By: #### 8 5499 ####[facility] [place] [address], [facility] Glucose [Mass/Vol] 153 mg/dL High 70-100 [facility] Comment on above: Performed By: #### 8 5499 ####[facility] [place] [address], [place] Glucose [Mass/Vol] 236 mg/dL High 70-100 [facility] Comment on above: Performed By: #### 8 5499 ####[facility] [place] [address], [place] Glucose [Mass/Vol] 204 mg/dL High 70-100 [facility] Comment on above: Performed By: #### 8 5499 ####[facility] [place] [address], [place] POC GLUCOSE LABon 12-08-2021 Glucose [Mass/Vol] 294 mg/dL High 70-100 [facility] Comment on above: Performed By: #### 8 5499 ####[facility] [place] [address], [place] Glucose [Mass/Vol] 193 mg/dL High 70-100 [facility] Comment on above: Performed By: #### 8 5499 ####[facility] [place] [address], [place] Glucose [Mass/Vol] 255 mg/dL High 70-100 [facility] Comment on above: Performed By: #### 8 5499 ####[facility] [place] [address], [place] Glucose [Mass/Vol] 181 mg/dL High 70-100 [facility] Comment on above: Performed By: #### 8 5499 ####[facility] [place] [address], [place] BASIC METABOLIC PANELon 11-10 Calcium [Mass/Vol] 9.3 mg/dL Normal 8.6-10.3 [facility] Comment on above: Order Comment: No: D o not add to previous draw Performed By: #### 0 0071 ####[facility] [place] [address], [facility] Chloride [Moles/Vol] 94 mmol/L Low 98-107 [facility] Comment on above: Order Comment: No: D o not add to previous draw Performed By: #### 0 0071 ####[facility] [place] [address], [place] CO2 [Moles/Vol] 38 mmol/L High 21-31 [facility] Comment on above: Order Comment: No: D o not add to previous draw Performed By: #### 0 0071 ####[facility] [facility] [address], [facility] Creatinine [Mass/Vol] 1.05 mg/dL Normal 0.70-1.30 [facility] Comment on above: Order Comment: No: D o not add to previous draw Performed By: #### 0 0071 ####[facility] [place] [address], [facility] GFR/1.73 sq M.predicted among non-blacks MDRD (S/P/Bld) [Vol rate/Area] mL/min/{1.73_m2} Normal >60 [facility] Comment on above: Order Comment: No: D o not add to previous draw Result Comment: [facility]'s estimated glomerularfiltration rate (eGFR) will no longer [...] of individuals. Performed By: #### 0 0071 ####[facility] [facility] [place] [address] [place] [address] Glucose [Mass/Vol] 196 mg/dL High 70-100 [facility] Comment on above: Order Comment: No: D o not add to previous draw Performed By: #### 0 0071 ####[facility] Potassium [Moles/Vol] 4.2 mmol/L Normal 3.5-5.1 [facility] Comment on above: Order Comment: No: D o not add to previous draw Performed By: #### 0 0071 ####[facility] Sodium [Moles/Vol] 137 mmol/L Normal 136-145 [facility] Comment on above: Order Comment: No: D o not add to previous draw Performed By: #### 0 0071 ####[facility] Urea nitrogen [Mass/Vol] 36 mg/dL High 7-25 [facility] Comment on above: Order Comment: No: D o not add to previous draw Performed By: #### 0 0071 ####[address] CBC W/DIFFon 12-07-2021 ABS IMM GRANS 0.1 10*3/uL Normal 0.0-0.2 [facility] Comment on above: Order Comment: Nurse draw Performed By: #### 5 0103 ####[facility] ABS NEUTROPHILS 4.9 10*3/uL Normal 1.6-7.6 [facility] Comment on above: Order Comment: Nurse draw Performed By: #### 5 010 ####[facility] [place] [address], [facility] Basophils (Bld) [#/Vol] 0.1 10*3/uL Normal 0.0-0.2 [facility] Comment on above: Order Comment: Nurse draw Performed By: #### 5 0103 ####[facility] [place] [address], [facility] Basophils/100 WBC (Bld) 1.0 % Normal 0.0-1.0 [facility] Comment on above: Order Comment: Nurse draw Performed By: #### 5 0103 ####[facility] [place] [address], [facility] Eosinophils (Bld) [#/Vol] 0.3 10*3/uL Normal 0.0-0.5 [facility] Comment on above: Order Comment: Nurse draw Performed By: #### 5 0103 ####[facility] [place] [address], [facility] Eosinophils/100 WBC (Bld) 3.1 % Normal 0.0-6.0 [facility] Comment on above: Order Comment: Nurse draw Performed By: #### 3 ####[facility] Erythrocyte distribution width (RBC) [Ratio] 13.5 % Normal 11.5-15.0 [facility] Comment on above: Order Comment: Nurse draw Performed By: #### 3 ####[facility] [place] [address], [facility] Hematocrit (Bld) [Volume fraction] 33.4 % Low 39.0-50.0 [facility] Comment on above: Order Comment: Nurse draw Performed By: #### 3 ####[facility] [place] [address], [facility] Hemoglobin (Bld) [Mass/Vol] 10.5 g/dL Low 13.0-17.0 [facility] Comment on above: Order Comment: Nurse draw Performed By: #### 5 3 ####[facility] IMMATURE GRANS 1.4 % High 0.0-1.0 [facility] Comment on above: Order Comment: Nurse draw Performed By: #### 5 0103 ####[facility] [place] [address] Lymphocytes (Bld) [#/Vol] 2.3 10*3/uL Normal 1.2-4.0 [facility] Comment on above: Order Comment: Nurse draw Performed By: #### 5 0103 ####[facility] [place] [address] Lymphocytes/100 WBC (Bld) 27.6 % Normal 20.0-45.0 [facility] Comment on above: Order Comment: Nurse draw Performed By: #### 5 0103 ####[address] MCH (RBC) [Entitic mass] 26.1 pg Low 27.0-33.0 [facility] Comment on above: Order Comment: Nurse draw Performed By: #### 5 0103 ####[address] MCHC (RBC) [Mass/Vol] 31.4 g/dL Low 32.0-35.0 [facility] Comment on above: Order Comment: Nurse draw Performed By: #### 5 0103 ####[facility] [place] [address], [facility] MCV (RBC) [Entitic vol] 82.9 fL Normal 82.0-98.0 [facility] Comment on above: Order Comment: Nurse draw Performed By: #### 5 0103 ####[place] [address], [facility] Monocytes (Bld) [#/Vol] 0.7 10*3/uL Normal 0.1-1.0 [facility] Comment on above: Order Comment: Nurse draw Performed By: #### 5 0103 ####[facility] [place] [address], [facility] MONOS 8.2 % Normal 5.0-12.0 [facility] Comment on above: Order Comment: Nurse draw Performed By: #### 5 0103 ####[facility] [place] [address], [place] Neutrophils/100 WBC (Bld) 58.7 % Normal 40.0-72.0 [facility] Comment on above: Order Comment: Nurse draw Performed By: #### 5 0103 ####[facility] [place] [address], [facility] Nucleated RBC/100 WBC (Bld) [Ratio] 0 % Normal 0-0 [facility] Comment on above: Order Comment: Nurse draw Performed By: #### 5 0103 ####[facility] [place] [address], [place] PLAT CNT 402 10*3/uL High 150-400 [facility] Comment on above: Order Comment: Nurse draw Performed By: #### 5 0103 ####[facility] [place] [address], [facility] RBC (Bld) [#/Vol] 4.03 10*6/uL Low 4.20-5.70 [facility] Comment on above: Order Comment: Nurse draw Performed By: #### 5 3 ####[facility] [place] [address], [place] WBC (Bld) [#/Vol] 8.29 10*3/uL Normal 4.00-10.60 [facility] Comment on above: Order Comment: Nurse draw Performed By: #### 5 3 ####[facility] [place] [address], [place] POC GLUCOSE LABon 12-07-2021 Glucose [Mass/Vol] 334 mg/dL High 70-100 [facility] Comment on above: Performed By: #### 8 5499 ####[facility] [place] [address], [facility] Glucose [Mass/Vol] 204 mg/dL High 70-100 [facility] Comment on above: Performed By: #### 8 5499 ####[facility] [place] [address], [facility] Glucose [Mass/Vol] 222 mg/dL High 70-100 [facility] Comment on above: Performed By: #### 8 5499 ####[facility] [place] [address], [facility] Glucose [Mass/Vol] 205 mg/dL High 70-100 [facility] Comment on above: Performed By: #### 8 5499 ####[facility] [place] [address], [facility] URINALYSIS REFLEXon 12-08-19 22 Appearance (U) CLEAR Normal CLEAR [facility] Comment on above: Order Comment: No: D o not add to previous drawCriteria for reflexing a culture was not met. Please call the lab [id number] within 24 hours of collection time if culture is needed Performed By: #### 3 0965 ####[facility] [place] [address], [facility] Bilirubin Ql (U) Negative Normal NEGATIVE [facility] Comment on above: Order Comment: No: D o not add to previous drawCriteria for reflexing a culture was not met. Please call the lab [id number] within 24 hours of collection time if culture is needed Performed By: #### 3 0986 ####[facility] [place] [address], [facility] BUDDING YEAST OCC Abnormal NONE SEEN [facility] Comment on above: Order Comment: No: D o not add to previous drawCriteria for reflexing a culture was not met. Please call the lab [id number] within 24 hours of collection time if culture is needed Performed By: #### 3 0965 ####[facility] [place] [address], [facility] Color (U) YELLOW Normal YELLOW [facility] Comment on above: Order Comment: No: D o not add to previous drawCriteria for reflexing a culture was not met. Please call the lab [id number] within 24 hours of collection time if culture is needed Performed By: #### 3 0965 ####[facility] [place] [address], [facility] EPIS OCC Normal FEW,OCC,NONE SEEN [facility] Comment on above: Order Comment: No: D o not add to previous drawCriteria for reflexing a culture was not met. Please call the lab [id number] within 24 hours of collection time if culture is needed Performed By: #### 3 0965 ####[facility] [place] [address], [facility] Glucose Ql (U) >=1000 Abnormal NEGATIVE [facility] Comment on above: Order Comment: No: D o not add to previous drawCriteria for reflexing a culture was not met. Please call the lab [id number] within 24 hours of collection time if culture is needed Performed By: #### 3 0965 ####[facility] [place] [address], [facility] Hemoglobin Ql (U) TRACE Abnormal NEGATIVE [facility] Comment on above: Order Comment: No: D o not add to previous drawCriteria for reflexing a culture was not met. Please call the lab [id number] within 24 hours of collection time if culture is needed Performed By: #### 3 0965 ####[facility] [place] [address], [facility] KETONE Negative Normal NEGATIVE [facility] Comment on above: Order Comment: No: D o not add to previous drawCriteria for reflexing a culture was not met. Please call the lab [id number] within 24 hours of collection time if culture is needed Performed By: #### 3 0965 ####[facility] [place] [address], [facility] LEUK ROMEO Negative Normal NEGATIVE [facility] Comment on above: Order Comment: No: D o not add to previous drawCriteria for reflexing a culture was not met. Please call the lab [id number] within 24 hours of collection time if culture is needed Performed By: #### 3 0965 ####[facility] [place] [address], [facility] Nitrite Ql (U) Negative Normal NEGATIVE [facility] Comment on above: Order Comment: No: D o not add to previous drawCriteria for reflexing a culture was not met. Please call the lab [id number] within 24 hours of collection time if culture is needed Performed By: #### 3 0965 ####[facility] [place] [address], [facility] pH (U) 6.0 [pH] Normal 5.0-8.0 [facility] Comment on above: Order Comment: No: D o not add to previous drawCriteria for reflexing a culture was not met. Please call the lab [id number] within 24 hours of collection time if culture is needed Performed By: #### 3 0965 ####[facility] [place] [address], [facility] Protein Ql (U) Negative Normal NEGATIVE [facility] Comment on above: Order Comment: No: D o not add to previous drawCriteria for reflexing a culture was not met. Please call the lab [id number] within 24 hours of collection time if culture is needed Performed By: #### 3 0965 ####[facility] [place] [address], [facility] RBC 0-2 Abnormal NONE SEEN [facility] Comment on above: Order Comment: No: D o not add to previous drawCriteria for reflexing a culture was not met. Please call the lab [id number] within 24 hours of collection time if culture is needed Performed By: #### 3 0965 ####[facility] SPEC GRAV 1.010 Low 1.015-1.020 [facility] Comment on above: Order Comment: No: D o not add to previous drawCriteria for reflexing a culture was not met. Please call the lab [id number] within 24 hours of collection time if culture is needed Performed By: #### 3 0965 ####[facility] WBC UA NONE SEEN Normal NONE SEEN [facility] Comment on above: Order Comment: No: D o not add to previous drawCriteria for reflexing a culture was not met. Please call the lab [id number] within 24 hours of collection time if culture is needed Performed By: #### 3 0965 ####[facility] *TISSUE CULTUREon 12-06-2021 *TISSUE CULTURE Normal [facility] Comment on above: Performed By: #### 3 0338 ####[facility] BASIC METABOLIC PANELon 11-09 Calcium [Mass/Vol] 8.9 mg/dL Normal 8.6-10.3 [facility] Comment on above: Order Comment: No: D o not add to previous draw Performed By: #### 0 0071 ####[facility] [facility] [address], [facility] Chloride [Moles/Vol] 96 mmol/L Low 98-107 The [facility] Comment on above: Order Comment: No: D o not add to previous draw Performed By: #### 0 0071 ####[facility] [place] [address], [place] CO2 [Moles/Vol] 36 mmol/L High 21-31 [facility] Comment on above: Order Comment: No: D o not add to previous draw Performed By: #### 0 0071 ####[facility] .[place] [address], [facility] Creatinine [Mass/Vol] 1.00 mg/dL Normal 0.70-1.30 [facility] Comment on above: Order Comment: No: D o not add to previous draw Performed By: #### 0 0071 ####[facility] [place] [address], [facility] GFR/1.73 sq M.predicted among non-blacks MDRD (S/P/Bld) [Vol rate/Area] mL/min/{1.73_m2} Normal >60 [facility] Comment on above: Order Comment: No: D o not add to previous draw Result Comment: [facility]'s estimated glomerularfiltration rate (eGFR) will no longer [...] of individuals. Performed By: #### 0 0071 ####[facility] [place] [address], [facility] Glucose [Mass/Vol] 163 mg/dL High 70-100 [facility] Comment on above: Order Comment: No: D o not add to previous draw Performed By: #### 0 0071 ####[facility] [place] [address], [facility] Potassium [Moles/Vol] 3.9 mmol/L Normal 3.5-5.1 [facility] Comment on above: Order Comment: No: D o not add to previous draw Performed By: #### 0 0071 ####[facility] Sodium [Moles/Vol] 139 mmol/L Normal 136-145 [facility] Comment on above: Order Comment: No: D o not add to previous draw Performed By: #### 0 0071 ####[facility] Urea nitrogen [Mass/Vol] 40 mg/dL High 7-25 [facility] Comment on above: Order Comment: No: D o not add to previous draw Performed By: #### 0 0071 ####[facility] CBC COMPLETE BLOOD COUNTon 0 12-06-2021 Erythrocyte distribution width (RBC) [Ratio] 13.6 % Normal 11.5-15.0 [facility] Comment on above: Order Comment: No: D o not add to previous drawPer rn [place] nurse draw Performed By: #### 5 0608 ####[facility] Hematocrit (Bld) [Volume fraction] 32.9 % Low 39.0-50.0 [facility] Comment on above: Order Comment: No: D o not add to previous drawPer rn [place] nurse draw Performed By: #### 5 0608 ####[facility] Hemoglobin (Bld) [Mass/Vol] 10.4 g/dL Low 13.0-17.0 [facility] Comment on above: Order Comment: No: D o not add to previous drawPer rn [place] nurse draw Performed By: #### 5 0608 ####[facility] .[place] [address], [facility] MCH (RBC) [Entitic mass] 26.5 pg Low 27.0-33.0 [facility] Comment on above: Order Comment: No: D o not add to previous drawPer rn [place] nurse draw Performed By: #### 5 0608 ####[facility] [facility] MCHC (RBC) [Mass/Vol] 31.6 g/dL Low 32.0-35.0 [facility] Comment on above: Order Comment: No: D o not add to previous drawPer rn [place] nurse draw Performed By: #### 5 0608 ####[facility] MCV (RBC) [Entitic vol] 83.7 fL Normal 82.0-98.0 [facility] Comment on above: Order Comment: No: D o not add to previous drawPer rn [place] nurse draw Performed By: #### 5 0608 ####[facility] Nucleated RBC/100 WBC (Bld) [Ratio] 0 % Normal 0-0 [facility] Comment on above: Order Comment: No: D o not add to previous drawPer rn [place] nurse draw Performed By: #### 5 0608 ####[facility] PLAT CNT 334 10*3/uL Normal 150-400 [facility] Comment on above: Order Comment: No: D o not add to previous drawPer rn [place] nurse draw Performed By: #### 5 0608 ####[facility] RBC (Bld) [#/Vol] 3.93 10*6/uL Low 4.20-5.70 [facility] Comment on above: Order Comment: No: D o not add to previous drawPer rn [place] nurse draw Performed By: #### 5 0608 ####[facility] [place] [address], [facility] WBC (Bld) [#/Vol] 8.01 10*3/uL Normal 4.00-10.60 [facility] Comment on above: Order Comment: No: D o not add to previous drawPer mike Paul nurse draw Performed By: #### 5 0608 ####[facility] [address], [facility] POC GLUCOSE LABon 12-06-2021 Glucose [Mass/Vol] 259 mg/dL High 70-100 [facility] Comment on above: Performed By: #### 8 5499 ####[facility] [place] [address], [place] Glucose [Mass/Vol] 175 mg/dL High 70-100 [facility] Comment on above: Performed By: #### 8 5499 ####[facility] [address], [place] Glucose [Mass/Vol] 174 mg/dL High 70-100 [facility] Comment on above: Performed By: #### 8 5499 ####[facility] [place] [address], [place] Glucose [Mass/Vol] 187 mg/dL High 70-100 [facility] Comment on above: Performed By: #### 8 5499 ####[facility] [place] [address], [place] Glucose [Mass/Vol] 221 mg/dL High 70-100 [facility] Comment on above: Performed By: #### 8 5499 ####[facility] [place] [address], [place] POC GLUCOSE LABon 12-05-2021 Glucose [Mass/Vol] 247 mg/dL High 70-100 [facility] Comment on above: Performed By: #### 8 5499 ####[facility] [place] [address], [place] Glucose [Mass/Vol] 199 mg/dL High 70-100 [facility] Comment on above: Performed By: #### 8 5499 ####[facility] [place] [address], [place] Glucose [Mass/Vol] 146 mg/dL High 70-100 [facility] Comment on above: Performed By: #### 8 5499 ####[facility] [facility] [place] [address], [place] VANCOMYCIN TROUGHon 12-06-19 VANCOMYCIN TROU 12.5 mcg/mL Normal 5.0-20.0 [facility] Comment on above: Performed By: #### 0 2024 ####[facility] [place] [address], [facility] BASIC METABOLIC PANELon 11-09 Calcium [Mass/Vol] 8.6 mg/dL Normal 8.6-10.3 [facility] Comment on above: Order Comment: No: D o not add to previous draw Performed By: #### 1 0070, 29144, 59081 ####[facility] [place] [address], [facility] Chloride [Moles/Vol] 98 mmol/L Normal 98-107 [facility] Comment on above: Order Comment: No: D o not add to previous draw Performed By: #### 1 0070, 10084, 68757 ####[facility] [facility] [place] [address], [place] CO2 [Moles/Vol] 33 mmol/L High 21-31 [facility] Comment on above: Order Comment: No: D o not add to previous draw Performed By: #### 1 0070, 42232, 71093 ####[facility] [place] [address], [place] Creatinine [Mass/Vol] 0.86 mg/dL Normal 0.70-1.30 [facility] Comment on above: Order Comment: No: D o not add to previous draw Performed By: #### 1 0, 96814, 93991 ####[facility] [place] [address], [facility] GFR/1.73 sq M.predicted among non-blacks MDRD (S/P/Bld) [Vol rate/Area] mL/min/{1.73_m2} Normal >60 [facility] Comment on above: Order Comment: No: D o not add to previous draw Result Comment: [facility]'s estimated glomerularfiltration rate (eGFR) will no longer [...] onegroup of individuals. Performed By: #### 1 0, 54393, 55376 ####[facility] [place] [address], [facility] Glucose [Mass/Vol] 141 mg/dL High 70-100 [facility] Comment on above: Order Comment: No: D o not add to previous draw Performed By: #### 1 0, 83431, 20113 ####[facility] [place] [address], [facility] Potassium [Moles/Vol] 3.7 mmol/L Normal 3.5-5.1 [facility] Comment on above: Order Comment: No: D o not add to previous draw Performed By: #### 1 0, 26511, 86039 ####[facility] [place] [address], [place] Sodium [Moles/Vol] 138 mmol/L Normal 136-145 [facility] Comment on above: Order Comment: No: D o not add to previous draw Performed By: #### 1 0070, 53906, 67515 ####[facility] Urea nitrogen [Mass/Vol] 27 mg/dL High 7-25 [facility] Comment on above: Order Comment: No: D o not add to previous draw Performed By: #### 1 0070, 99719, 75311 ####[facility] CBC W/DIFFon 12-04-2021 ABS IMM GRANS 0.0 10*3/uL Normal 0.0-0.2 [facility] Comment on above: Order Comment: Pt gomez s midline, acnt find RN Performed By: #### 5 0103 ####[address] ABS NEUTROPHILS 3.9 10*3/uL Normal 1.6-7.6 [facility] Comment on above: Order Comment: Pt gomez s midline, acnt find RN Performed By: #### 5 0103 ####[place] [address] Basophils (Bld) [#/Vol] 0.1 10*3/uL Normal 0.0-0.2 [facility] Comment on above: Order Comment: Pt gomez s midline, acnt find RN Performed By: #### 5 0103 ####[facility] Basophils/100 WBC (Bld) 0.8 % Normal 0.0-1.0 [facility] Comment on above: Order Comment: Pt gomez s midline, acnt find RN Performed By: #### 5 0103 ####[facility] [place] [address] Eosinophils (Bld) [#/Vol] 0.3 10*3/uL Normal 0.0-0.5 [facility] Comment on above: Order Comment: Pt gomez s midline, acnt find RN Performed By: #### 5 0103 ####[facility] Eosinophils/100 WBC (Bld) 4.6 % Normal 0.0-6.0 [facility] Comment on above: Order Comment: Pt gomez s midline, acnt find RN Performed By: #### 5 3 ####[facility] Erythrocyte distribution width (RBC) [Ratio] 13.9 % Normal 11.5-15.0 [facility] Comment on above: Order Comment: Pt gomez s midline, acnt find RN Performed By: #### 3 ####[facility] Hematocrit (Bld) [Volume fraction] 31.7 % Low 39.0-50.0 [facility] Comment on above: Order Comment: Pt gomez s midline, acnt find RN Performed By: #### 5 3 ####[facility] Hemoglobin (Bld) [Mass/Vol] 9.9 g/dL Low 13.0-17.0 [facility] Comment on above: Order Comment: Pt gomez s midline, acnt find RN Performed By: #### 5 3 ####[facility] IMMATURE GRANS 0.5 % Normal 0.0-1.0 [facility] Comment on above: Order Comment: Pt gomez s midline, acnt find RN Performed By: #### 5 3 ####[facility] [place] [address] Lymphocytes (Bld) [#/Vol] 1.5 10*3/uL Normal 1.2-4.0 [facility] Comment on above: Order Comment: Pt gomez s midline, acnt find RN Performed By: #### 5 0103 ####[facility] Lymphocytes/100 WBC (Bld) 23.5 % Normal 20.0-45.0 [facility] Comment on above: Order Comment: Pt gomez s midline, acnt find RN Performed By: #### 5 3 ####[facility] MCH (RBC) [Entitic mass] 26.3 pg Low 27.0-33.0 [facility] Comment on above: Order Comment: Pt gomez s midline, acnt find RN Performed By: #### 3 ####[facility] MCHC (RBC) [Mass/Vol] 31.2 g/dL Low 32.0-35.0 [facility] Comment on above: Order Comment: Pt gomez s midline, acnt find RN Performed By: #### 5 3 ####[facility] [place] [address] MCV (RBC) [Entitic vol] 84.3 fL Normal 82.0-98.0 [facility] Comment on above: Order Comment: Pt gomez s midline, acnt find RN Performed By: #### 5 3 ####[facility] Monocytes (Bld) [#/Vol] 0.6 10*3/uL Normal 0.1-1.0 [facility] Comment on above: Order Comment: Pt gomez s midline, acnt find RN Performed By: #### 3 ####[facility] [place] [address] MONOS 8.7 % Normal 5.0-12.0 [facility] Comment on above: Order Comment: Pt gomez s midline, acnt find RN Performed By: #### 5 102 ####[facility] [place] [address], [facility] Neutrophils/100 WBC (Bld) 61.9 % Normal 40.0-72.0 [facility] Comment on above: Order Comment: Pt gomez s midline, acnt find RN Performed By: #### 5 102 ####[facility] Nucleated RBC/100 WBC (Bld) [Ratio] 0 % Normal 0-0 [facility] Comment on above: Order Comment: Pt gomez s midline, acnt find RN Performed By: #### 5 102 ####[facility] [place] [address], [facility] PLAT CNT 270 10*3/uL Normal 150-400 [facility] Comment on above: Order Comment: Pt gomez s midline, acnt find RN Performed By: #### 5 3 ####[facility] RBC (Bld) [#/Vol] 3.76 10*6/uL Low 4.20-5.70 [facility] Comment on above: Order Comment: Pt gomez s midline, acnt find RN Performed By: #### 5 3 ####[facility] [place] [address], [facility] WBC (Bld) [#/Vol] 6.35 10*3/uL Normal 4.00-10.60 [facility] Comment on above: Order Comment: Pt gomez s midline, acnt find RN Performed By: #### 5 102 ####[facility] [place] [address], [facility] LIVER BATTERYon 12-04-2021 Albumin [Mass/Vol] 3.2 g/dL Low 3.5-5.7 [facility] Comment on above: Order Comment: No: D o not add to previous draw Performed By: #### 1 0, 79389, 08592 ####[facility] [place] [address], [place] ALKALINE PHOSPH 54 IU/L Normal 34-104 [facility] Comment on above: Order Comment: No: D o not add to previous draw Performed By: #### 1 0070, 89744, 96521 ####[facility] [place] [address], [place] ALT [Catalytic activity/Vol] 12 U/L Normal 7-52 [facility] Comment on above: Order Comment: No: D o not add to previous draw Performed By: #### 1 0, 77095, 34710 ####[facility] [place] [address], [place] AST [Catalytic activity/Vol] 15 U/L Normal 13-39 [facility] Comment on above: Order Comment: No: D o not add to previous draw Performed By: #### 1 0, 01338, 81114 ####[facility] [place] [address], [place] Bilirubin [Mass/Vol] 0.6 mg/dL Normal 0.3-1.0 [facility] Comment on above: Order Comment: No: D o not add to previous draw Performed By: #### 1 0070, 83953, 89523 ####[facility] [place] [address], [place] Bilirubin.direct [Mass/Vol] 0.1 mg/dL Normal 0.0-0.2 [facility] Comment on above: Order Comment: No: D o not add to previous draw Performed By: #### 1 0, 77423, 24650 ####[facility] [place] [address], [place] Protein [Mass/Vol] 6.5 g/dL Normal 6.0-8.3 [facility] Comment on above: Order Comment: No: D o not add to previous draw Performed By: #### 1 0070, 86858, 37540 ####[facility] [place] [address], [place] MAGNESIUM BLOODon 12-04-2021 Magnesium [Mass/Vol] 2.0 mg/dL Normal 1.9-2.7 [facility] Comment on above: Order Comment: No: D o not add to previous draw Performed By: #### 1 0070, 42564, 51856 ####[facility] [place] [address], [place] POC GLUCOSE LABon 12-04-2021 Glucose [Mass/Vol] 346 mg/dL High 70-100 [facility] Comment on above: Performed By: #### 8 5499 ####[facility] [place] [address], [place] Glucose [Mass/Vol] 239 mg/dL High 70-100 [facility] Comment on above: Performed By: #### 8 5499 ####[facility] [place] [address], [place] Glucose [Mass/Vol] 181 mg/dL High 70-100 [facility] Comment on above: Performed By: #### 8 5499 ####[facility] [place] [address], [place] Glucose [Mass/Vol] 275 mg/dL High 70-100 [facility] Comment on above: Performed By: #### 8 5499 ####[facility] [place] [address], [place] Glucose [Mass/Vol] 153 mg/dL High 70-100 [facility] Comment on above: Performed By: #### 8 4159 ####[facility] *BLOOD CULTUREon 12-03-2021 *BLOOD CULTURE Clinical Report: (D) Specimen: BLOOD CULTURE Collected: 12/03/2021 00:36 Status: Final Last Updated: 12/08/2021 06:53 CULT RES (Final) No Growth Day 5 Normal [facility] Comment on above: Performed By: #### 3 0313 ####[facility] *FUNGAL BLOOD CULTUREon 11-09 *FUNGAL BLOOD CULTURE Normal [facility] Comment on above: Order Comment: No: D o not add to previous draw Performed By: #### 3 0315 ####[facility] APTTon 12-03-2021 aPTT Coag (Bld) [Time] 36.5 s High 25.0-35.0 [facility] Comment on above: Order Comment: No: D [...] THIS PURPOSE. Performed By: #### 5 7307, 81679 ####[facility] BNP (B-TYPE NATRIURETIC PEPT CHANNING)on 12-03-2021 Natriuretic peptide B (Bld) [Mass/Vol] 25 pg/mL Normal 0-100 [facility] Comment on above: Order Comment: No: D o not add to previous draw Result Comment: Give n the appropriate clinical setting a BNP result of >100 pg/mLindicates congestive heart failure. Performed By: #### 3 1791, 39088 ####[facility] CBC W/DIFFon 12-03-2021 ABS IMM GRANS 0.0 10*3/uL Normal 0.0-0.2 [facility] Comment on above: Order Comment: No: D o not add to previous draw Performed By: #### 5 0103 ####[facility] [place] [address], [facility] ABS NEUTROPHILS 5.0 10*3/uL Normal 1.6-7.6 [facility] Comment on above: Order Comment: No: D o not add to previous draw Performed By: #### 5 0103 ####[facility] [place] [address], [facility] Basophils (Bld) [#/Vol] 0.1 10*3/uL Normal 0.0-0.2 [facility] Comment on above: Order Comment: No: D o not add to previous draw Performed By: #### 5 0103 ####[facility] [place] [address], [facility] Basophils/100 WBC (Bld) 0.6 % Normal 0.0-1.0 [facility] Comment on above: Order Comment: No: D o not add to previous draw Performed By: #### 5 0103 ####[facility] [place] [address], [facility] Eosinophils (Bld) [#/Vol] 0.2 10*3/uL Normal 0.0-0.5 [facility] Comment on above: Order Comment: No: D o not add to previous draw Performed By: #### 5 0103 ####[facility] [place] [address], [facility] Eosinophils/100 WBC (Bld) 3.0 % Normal 0.0-6.0 [facility] Comment on above: Order Comment: No: D o not add to previous draw Performed By: #### 5 0103 ####[facility] Erythrocyte distribution width (RBC) [Ratio] 14.2 % Normal 11.5-15.0 [facility] Comment on above: Order Comment: No: D o not add to previous draw Performed By: #### 5 0103 ####[facility] Hematocrit (Bld) [Volume fraction] 31.9 % Low 39.0-50.0 [facility] Comment on above: Order Comment: No: D o not add to previous draw Performed By: #### 5 0103 ####[facility] Hemoglobin (Bld) [Mass/Vol] 10.3 g/dL Low 13.0-17.0 [facility] Comment on above: Order Comment: No: D o not add to previous draw Performed By: #### 5 0103 ####[facility] IMMATURE GRANS 0.4 % Normal 0.0-1.0 [facility] Comment on above: Order Comment: No: D o not add to previous draw Performed By: #### 5 0103 ####[facility] Lymphocytes (Bld) [#/Vol] 1.8 10*3/uL Normal 1.2-4.0 [facility] Comment on above: Order Comment: No: D o not add to previous draw Performed By: #### 5 0103 ####[facility] Lymphocytes/100 WBC (Bld) 22.7 % Normal 20.0-45.0 [facility] Comment on above: Order Comment: No: D o not add to previous draw Performed By: #### 5 0103 ####[facility] MCH (RBC) [Entitic mass] 26.5 pg Low 27.0-33.0 [facility] Comment on above: Order Comment: No: D o not add to previous draw Performed By: #### 5 0103 ####[facility] [place] [address].[place] [address], [facility] MCHC (RBC) [Mass/Vol] 32.3 g/dL Normal 32.0-35.0 [facility] Comment on above: Order Comment: No: D o not add to previous draw Performed By: #### 5 0103 ####[address] MCV (RBC) [Entitic vol] 82.2 fL Normal 82.0-98.0 [facility] Comment on above: Order Comment: No: D o not add to previous draw Performed By: #### 5 3 ####[facility] Monocytes (Bld) [#/Vol] 0.8 10*3/uL Normal 0.1-1.0 [facility] Comment on above: Order Comment: No: D o not add to previous draw Performed By: #### 5 3 ####[facility] [place] [address] MONOS 10.0 % Normal 5.0-12.0 [facility] Comment on above: Order Comment: No: D o not add to previous draw Performed By: #### 5 0103 ####[address] Neutrophils/100 WBC (Bld) 63.3 % Normal 40.0-72.0 [facility] Comment on above: Order Comment: No: D o not add to previous draw Performed By: #### 5 3 ####[facility] Nucleated RBC/100 WBC (Bld) [Ratio] 0 % Normal 0-0 [facility] Comment on above: Order Comment: No: D o not add to previous draw Performed By: #### 5 0103 ####[facility] [place] [address], [facility] PLAT CNT 250 10*3/uL Normal 150-400 [facility] Comment on above: Order Comment: No: D o not add to previous draw Performed By: #### 5 0103 ####[place] [address] [place] [address], [facility] RBC (Bld) [#/Vol] 3.88 10*6/uL Low 4.20-5.70 [facility] Comment on above: Order Comment: No: D o not add to previous draw Performed By: #### 5 0103 ####[facility] [place] [address], [facility] WBC (Bld) [#/Vol] 7.93 10*3/uL Normal 4.00-10.60 [facility] Comment on above: Order Comment: No: D o not add to previous draw Performed By: #### 5 0103 ####[facility] COMP METABOLIC PANELon 12-03 Albumin [Mass/Vol] 3.6 g/dL Normal 3.5-5.7 [facility] Comment on above: Order Comment: No: D o not add to previous draw Performed By: #### 3 1569, 13739, 76290, 27489 ####[facility] ALKALINE PHOSPH 62 IU/L Normal 34-104 [facility] Comment on above: Order Comment: No: D o not add to previous draw Performed By: #### 3 1569, 63905, 19065, 35090 ####[facility] [place] [address], [place] ALT [Catalytic activity/Vol] 17 U/L Normal 7-52 [facility] Comment on above: Order Comment: No: D o not add to previous draw Performed By: #### 3 1569, 91413, 83412, 47078 ####[facility] [place] [address], [place] AST [Catalytic activity/Vol] 18 U/L Normal 13-39 [facility] Comment on above: Order Comment: No: D o not add to previous draw Performed By: #### 3 1569, 45767, 42377, 02105 ####[facility] [place] [address], [place] Bilirubin [Mass/Vol] 0.7 mg/dL Normal 0.3-1.0 [facility] Comment on above: Order Comment: No: D o not add to previous draw Performed By: #### 3 1569, 61110, 49488, 42017 ####[facility] [place] [address], [place] Calcium [Mass/Vol] 8.6 mg/dL Normal 8.6-10.3 [facility] Comment on above: Order Comment: No: D o not add to previous draw Performed By: #### 3 1569, 69264, 91747, 96480 ####[facility] [place] [address], [place] Chloride [Moles/Vol] 97 mmol/L Low 98-107 [facility] Comment on above: Order Comment: No: D o not add to previous draw Performed By: #### 3 1569, 16910, 37517, 03464 ####[facility] [place] [address], [place] CO2 [Moles/Vol] 29 mmol/L Normal 21-31 [facility] Comment on above: Order Comment: No: D o not add to previous draw Performed By: #### 3 1569, 04498, 13015, 24301 ####[facility] [place] [address], [facility] Creatinine [Mass/Vol] 0.93 mg/dL Normal 0.70-1.30 [facility] Comment on above: Order Comment: No: D o not add to previous draw Performed By: #### 3 1569, 44177, 07785, 25861 ####[facility] [place] [address], [facility] GFR/1.73 sq M.predicted among non-blacks MDRD (S/P/Bld) [Vol rate/Area] mL/min/{1.73_m2} Normal >60 [facility] Comment on above: Order Comment: No: D o not add to previous draw Result Comment: [facility]'s estimated glomerularfiltration rate (eGFR) will no longer [...] of individuals. Performed By: #### 3 1569, 78582, 01224, 94687 ####[facility] [place] [address], [place] Glucose [Mass/Vol] 108 mg/dL High 70-100 [facility] Comment on above: Order Comment: No: D o not add to previous draw Performed By: #### 3 1569, 15643, 36041, 34948 ####[facility] [place] [address], [place] Potassium [Moles/Vol] 3.6 mmol/L Normal 3.5-5.1 [facility] Comment on above: Order Comment: No: D o not add to previous draw Performed By: #### 3 1569, 37366, 73222, 75570 ####[facility] [place] [address], [facility] Protein [Mass/Vol] 6.8 g/dL Normal 6.0-8.3 [facility] Comment on above: Order Comment: No: D o not add to previous draw Performed By: #### 3 1569, 18544, 83176, 58315 ####[facility] [place] [address], [facility] Sodium [Moles/Vol] 136 mmol/L Normal 136-145 [facility] Comment on above: Order Comment: No: D o not add to previous draw Performed By: #### 3 1569, 42424, 43890, 57713 ####[facility] [place] [address], [facility] Urea nitrogen [Mass/Vol] 24 mg/dL Normal 7-25 [facility] Comment on above: Order Comment: No: D o not add to previous draw Performed By: #### 3 1569, 90548, 26736, 85898 ####[facility] [place] [address], [facility] FOOT LEFT 3 VWSon 12-03-2021 FOOT LEFT 3 VWS Normal [facility] Comment on above: Order Comment: Osteo myelitis FOOT RIGHT 3 VWSon 2 FOOT RIGHT 3 VWS Normal [facility] Comment on above: Order Comment: Osteo myelitis HEMOGLOBIN A1Con 12-03-2021 Glucose [Moles/Vol] 163 mmol/L Normal [facility] Comment on above: Order Comment: No: D o not add to previous draw Performed By: #### 3 1791, 90419 ####[facility] [place] [address], [facility] HbA1c (Bld) [Mass fraction] 7.3 % High 4.0-6.0 [facility] Comment on above: Order Comment: No: D o not add to previous draw Performed By: #### 3 1791, 94649 ####[facility] [place] [address], [facility] LIPID PROFILEon 12-03-2021 Cholesterol [Mass/Vol] 118 mg/dL Low 120-200 [facility] Comment on above: Order Comment: No: D o not add to previous draw Result Comment: CHOL ESTEROL REFERENCE RANGE:20 YEARS AND OLDER CARDIOVASCULAR RISKLess than 200 mg/dl Low [id number] to 239 mg/dl Borderline [id number] mg/dl and greater High Risk Performed By: #### 3 1569, 11717, 42094, 49873 ####[facility] [place] [address], [facility] Cholesterol in HDL [Mass/Vol] 30 mg/dL Normal 23-92 [facility] Comment on above: Order Comment: No: D o not add to previous draw Result Comment: Slig ht variation in normal range could be due to gender and/or age.HDL CHOLESTEROL REFERENCE RANGE:20 years and older Cardiovascular Risk> or =60 mg/dL [id number] TO 59 mg/dL Low Risk<40 mg/dL High Risk Performed By: #### 3 1569, 10498, 21259, 16868 ####[facility] [place] [address], [facility] Cholesterol in LDL [Mass/Vol] 71 mg/dL Normal 0-130 [facility] Comment on above: Order Comment: No: D o not add to previous draw Result Comment: LDL IS A CALCULATIONLDL IS ONLY VALID IF THE TRIG IS LESS THAN 400. Performed By: #### 3 1569, 60180, 18848, 25412 ####[facility] [place] [address], [facility] Cholesterol.total/Cho lesterol in HDL [Mass ratio] 3.9 {ratio} Normal .0-4.5 [facility] Comment on above: Order Comment: No: D o not add to previous draw Performed By: #### 3 1569, 45057, 70561, 62622 ####[facility] [place] [address], [facility] NON-HDL CHOLESTEROL 88 mg/dL Normal [facility] Comment on above: Order Comment: No: D o not add to previous draw Performed By: #### 3 1569, 01988, 64030, 09321 ####[facility] [place] [address], [facility] Triglyceride [Mass/Vol] 86 mg/dL Normal 40-149 [facility] Comment on above: Order Comment: No: D o not add to previous draw Result Comment: TRIG LYCERIDE REFERENCE RANGE:20 YEARS AND OLDER CARDIOVASCULAR RISKLESS THAN 150 mg/dl LOW [id number] TO 199 mg/dl BORDERLINE [id number] mg/dl AND GREATER HIGH RISK Performed By: #### 3 1569, 73121, 93643, 73865 ####[facility] [place] [address], [place] VLDL CHOL 17 mg/dL Normal 0-40 [facility] Comment on above: Order Comment: No: D o not add to previous draw Performed By: #### 3 1569, 01650, 82611, 11703 ####[facility] [place] [address], [place] POC GLUCOSE LABon 12-03-2021 Glucose [Mass/Vol] 154 mg/dL High 70-100 [facility] Comment on above: Performed By: #### 8 5499 ####[facility] [place] [address], [place] Glucose [Mass/Vol] 155 mg/dL High 70-100 [facility] Comment on above: Performed By: #### 8 5499 ####[facility] [place] [address], [place] Glucose [Mass/Vol] 143 mg/dL High 70-100 [facility] Comment on above: Performed By: #### 8 5499 ####[facility] [place] [address], [facility] Glucose [Mass/Vol] 158 mg/dL High 70-100 [facility] Comment on above: Performed By: #### 8 5499 ####[facility] PROTHROMBIN TIMEon 2 INR Coag (PPP) [Relative time] 1.18 {INR} High 0.91-1.16 [facility] Comment on above: Order Comment: No: D [...] OF ACTION, CLINICALEFFECTIVENESS, AND OPTIMAL THERAPEUTIC RANGE. [id number]. Performed By: #### 5 7307, 31200 ####[facility] PT Coag (PPP) [Time] 15.0 s High 12.3-14.8 [facility] Comment on above: Order Comment: No: D o not add to previous draw Result Comment: ALL RESULTS MUST BE INTERPRETED WITH RESPECT TO BLOOD DRAWING ARTIFACTOR DILUTION ERROR OF ANTICOAGULANT AT THE TIME OF SAMPLING. Performed By: #### 5 7307, 44436 ####[facility] TIBIA FIBULA LEFTon 12-04-19 22 TIBIA FIBULA LEFT Normal [facility] Comment on above: Order Comment: Infec tion TROPONIN-Ion 12-03-2021 Troponin I.cardiac [Mass/Vol] 0.00 ng/mL Normal 0.00-0.04 [facility] Comment on above: Order Comment: No: D o not add to previous draw Result Comment: REFE RENCE RANGES: 0.00 - 0.04 ng/ml NORMAL 0.05 - 0.50 ng/ml INDETERMINATE > 0.50 ng/ml CONSISTENT WITH AN M.I. Performed By: #### 3 1569, 76513, 65571, 34841 ####[facility] TSH3 WITH REFLEX FT4on 12-03 TSH 3RD GENERATION 1.25 uIU/mL Normal 0.34-5.60 [facility] Comment on above: Order Comment: No: D o not add to previous draw Performed By: #### 3 1569, 25018, 55141, 50126 ####[facility] CHEMISTRYOrdered By: SYSTEM SYSTEM on 12-02-2021 Vancomycin [...] 0.7 mg/dL Normal 0.1 - 0.9 mg/dL [facility] Calcium [Mass/Vol] 8.3 mg/dL Low 8.9 - 11. 1 mg/dL [facility] Chloride [Moles/Vol] 99 mmol/L Low 101 - 1 11 mmol/L [facility] CO2 [Moles/Vol] 28 mmol/L Normal 21 - 31 mmol/L [facility] Creatinine [Mass/Vol] 1.2 mg/dL Normal 0.5 - 1.3 mg/dL [facility] GFR/1.73 sq M.predicted among blacks MDRD (S/P/Bld) [Vol rate/Area] mL/min/1.73 m2 Normal >=59mL/min/1 .73 m2 [facility] Chem S GFR/1.73 sq M.predicted among non-blacks MDRD (S/P/Bld) [Vol rate/Area] mL/min/1.73 m2 Normal >=59mL/min/1 .73 m2 [facility] Chem S Globulin (S) [Mass/Vol] 3.5 g/dL Normal 1.4 - 4.0 gm/dL [facility] Remisol Glucose [Mass/Vol] 188 mg/dL Normal 55 - 199 mg/dL [facility] Remisol Magnesium [Mass/Vol] 1.6 mg/dL Normal 1.3 - 2 .4 mg/dL [facility] Remisol Potassium [Moles/Vol] 3.3 mmol/L Low 3.5 - 5.3 mmol/L [facility] Remisol Protein [Mass/Vol] 6.2 g/dL Normal 6.0 - 7.8 gm/dL [facility] Remisol Sodium [Moles/Vol] 135 mmol/L Normal 135 - 145 mmol/L [facility] Remisol Urea nitrogen [Mass/Vol] 29 mg/dL High 5 - 21 mg/dL [facility] Remisol Urea nitrogen/Creatinine [Mass ratio] 24 mg/mg High 10 - 20 [facility] Remisol CHEMISTRYOrdered By: Lab ROP User on 12-02-2021 Glucose [Mass/Vol] 116 mg/dL High 55 - 99 mg/dL [facility] POC Subsection Comment on above: Result Comment: Mary flores RN/ POC Device SN [id number] Invalid Interpretation Code FT POC Subsection POC User ID [id number] Invalid Interpretation Code [facility] POC Subsection POC Username GOOD, BRIDGER Invalid Interpretation Code [facility] POC Subsection Glucose [Mass/Vol] 188 mg/dL High 55 - 99 mg/dL [facility] POC Subsection Comment on above: Result Comment: Mary flores RN/ POC Device SN [id number] Invalid Interpretation Code FT POC Subsection POC User ID [id number] Invalid Interpretation Code FT POC Subsection POC Username GOOD, BRIDGER Invalid Interpretation Code [facility] POC Subsection Glucose [Mass/Vol] 175 mg/dL High 55 - 99 mg/dL [facility] POC Subsection Comment on above: Result Comment: Mary flores RN/ POC Device SN [id number] Invalid Interpretation Code [facility] POC Subsection POC User ID [id number] Invalid Interpretation Code [facility] POC Subsection POC Username GOOD, BRIDGER Invalid Interpretation Code [facility] POC Subsection HEMATOLOGYOrdered By: Alecia Portillo on 12-02-2021 Erythrocyte distribution width (RBC) [Ratio] 15.4 % High 10.9 - 14.2 % [facility] HemeAutoSS Hematocrit (Bld) [Volume fraction] 27.0 % Low 37.7 - 49.0 % [facility] Hemoglobin (Bld) [Mass/Vol] 9.2 g/dL Low 13.5 - 17.5 gm/dL [facility] MCH (RBC) [Entitic mass] 27.1 pg Normal 27.0 - 34.0 pg [facility] HemeAutoSS MCHC (RBC) [Mass/Vol] 33.9 g/dL Normal 31.4 - 36.0 gm/dL [facility] HemeAutoSS MCV (RBC) [Entitic vol] 80.0 fL Normal 80.0 - 100.0 fL [facility] Platelet mean volume (Bld) [Entitic vol] 9.7 fL Normal 6.4 - 10.8 fL [facility] HemeAutoSS Platelets (Bld) [#/Vol] 183.0 E9/L Normal 150.0 - 500.0 E9/L [facility] HemeAutoSS RBC (Bld) [#/Vol] 3.4 E12/L Low 4.3 - 5.9 E12/L [facility] HemeAutoSS WBC corrected for nucl RBC Auto (Bld) [#/Vol] 6.8 E9/L Normal 4.0 - 11.0 E9/L [facility] HemeAutoSS CHEMISTRYOrdered By: SYSTEM SYSTEM on 12-01-2021 Anion gap [Moles/Vol] 7 mmol/L Normal 6 - 16 mEq/L [facility] Rem[facility] Calcium [Mass/Vol] 8.0 mg/dL Low 8.9 - 11. 1 mg/dL [facility] Chloride [Moles/Vol] 105 mmol/L Normal 101 - 1 11 mmol/L [facility] CO2 [Moles/Vol] 27 mmol/L Normal 21 - 31 mmol/L [facility] Creatinine [Mass/Vol] 0.7 mg/dL Normal 0.5 - 1.3 mg/dL [facility] CRP [Mass/Vol] 11.6 mg/dL High <=1.9mg/dL [facility] Remisol GFR/1.73 sq M.predicted among blacks MDRD (S/P/Bld) [Vol rate/Area] mL/min/1.73 m2 Normal >=59mL/min/1 .73 m2 [facility] Chem S GFR/1.73 sq M.predicted among non-blacks MDRD (S/P/Bld) [Vol rate/Area] mL/min/1.73 m2 Normal >=59mL/min/1 .73 m2 [facility] Chem S Glucose [Mass/Vol] 153 mg/dL Normal 55 - 199 mg/dL [facility] [...] 9.1 E9/L Normal 4.0 - 11.0 E9/L [facility] URINALYSISOrdered By: Isaac Herring on 12-01-2021 [...] [Mass/Vol] Negative (12/01/21 6:55 AM) Normal Negative [facility]A Auto SS Hemoglobin Ql (U) 2+ *ABN* (12/01/21 6:55 AM) Invalid Interpretation Code Negative [facility] UA Auto SS Ketones (U) [Mass/Vol] Negative (12/01/21 6:55 AM) Normal Negative [facility] UA Auto SS Sagar.plasma/Lithiu m.RBC (Bld) [Mass ratio] 4-20 /HPF Normal 0-3/HPF [facility] Auto SS Nitrite Ql (U) Negative (12/01/21 6:55 AM) Normal Negative [facility] UA Auto SS pH (U) 5.5 *NA* (12/01/21 6:55 AM) Invalid Interpretation Code 5.0 - 9.0 [facility] UA Auto SS Protein (U) [Mass/Vol] 2+ *ABN* (12/01/21 6:55 AM) Invalid Interpretation Code Negative [facility] UA Auto SS Specific gravity (U) [Rel density] >=1.030 *NA* (12/01/21 6:55 AM) Invalid Interpretation Code 1.005 - 1.030 [facility]A Auto SS UA Spec Desc Clean Catch (12/01/21 6:55 AM) Normal [facility] UA Auto SS Urobilinogen Qn (U) 0.4118440 {Tu'U}/dL Normal 0.0 - 1.0 EU/dL [facility] Auto SS WBC Auto Ql (U) Negative (12/01/21 6:55 AM) Normal Negative [facility]A Auto SS WBC LM.HPF (Urine sed) [...] Remisol CRP [Mass/Vol] 9.8 mg/dL High <=1.9mg/dL [facility] Remisol GFR/1.73 sq M.predicted among blacks MDRD (S/P/Bld) [Vol rate/Area] mL/min/1.73 m2 Normal >=59mL/min/1 .73 m2 [facility] Chem S GFR/1.73 sq M.predicted among non-blacks MDRD (S/P/Bld) [Vol rate/Area] mL/min/1.73 m2 Normal >=59mL/min/1 .73 m2 [facility] Chem S Globulin (S) [Mass/Vol] 3.2 g/dL Normal 1.4 - 4.0 gm/dL [facility] Glucose [Mass/Vol] 177 mg/dL Normal 55 - 199 mg/dL [facility] Lactate [Mass/Vol] 1.1 mmol/L Normal 0.5 - 2.2 mmol/L [facility] Potassium [Moles/Vol] 3.9 mmol/L Normal 3.5 - 5.3 mmol/L [facility] Protein [Mass/Vol] 6.0 g/dL Normal 6.0 - 7.8 gm/dL [facility] Sodium [Moles/Vol] 133 mmol/L Low 135 - 145 mmol/L [facility] Troponin I.cardiac [Mass/Vol] 9.00 pg/mL Low 15.90 - 38.40 pg/mL [facility] Urea nitrogen [Mass/Vol] 24 mg/dL High 5 - 21 mg/dL [facility] Urea nitrogen/Creatinine [Mass ratio] 27 mg/mg [...] 15.5 % High 10.9 - 14.2 % [facility] Hematocrit (Bld) [Volume fraction] 27.8 % Low 37.7 - 49.0 % [facility] Hemoglobin (Bld) [Mass/Vol] 9.0 g/dL Low 13.5 - 17.5 gm/dL [facility] MCH (RBC) [Entitic mass] 26.3 pg Low 27.0 - 34.0 pg [facility] MCHC (RBC) [Mass/Vol] 32.3 g/dL Normal 31.4 - 36.0 gm/dL [facility] MCV (RBC) [Entitic vol] 81.5 fL Normal 80.0 - 100.0 fL [facility] Platelet mean volume (Bld) [Entitic vol] 9.4 fL Normal 6.4 - 10.8 fL [facility] Platelets (Bld) [#/Vol] 155.0 E9/L Normal 150.0 - 500.0 E9/L [facility] RBC (Bld) [#/Vol] 3.4 E12/L Low 4.3 - 5.9 E12/L [facility] WBC corrected for nucl RBC Auto (Bld) [#/Vol] 6.8 E9/L Normal 4.0 - 11.0 E9/L [facility] No Panel Informationon 11-30 Blood Culture Charcoal No growth at 2 days. Final to follow at 7 days. [facility] Blood Culture Charcoal No growth at 2 days. Final to follow at 7 days. [facility] PROF CHEM 8 (BAS METB)on Anion gap [Moles/Vol] 10.9 mmol/L Normal Th e [facility] Comment on above: Performed By: #### B MP #### [facility] [address] [place], [place] [address] Dr. Terrence Paige Calcium [Mass/Vol] 8.7 mg/dL Normal 8.5-10.1 [facility] Comment on above: Performed By: #### B MP #### [facility] [address] [place] [address] [address] Terrence Paige Chloride [Moles/Vol] 104 mmol/L Normal 98-107 [facility] Comment on above: Performed By: #### B MP #### [facility] [address] [address] [address] Terrence Paige CO2 [Moles/Vol] 28.3 mmol/L Normal 21.0-32.0 [facility] Comment on above: Performed By: #### B MP #### [facility] [address] [place] [address] Dr. Terrence Paige Creatinine [Mass/Vol] 0.83 mg/dL Normal 0.70-1.30 [facility] Comment on above: Performed By: #### B MP #### [facility] [address] [place] [address] Dr. Terrence Paige EGFR-AF KUWAITI >60 Normal >=60 [facility] Comment on above: Performed By: #### B MP #### [facility] [address] [place] [address] Dr. Terrence Paige EGFR-NON AF [place]I >60 Normal >=60 [facility] Comment on above: Performed By: #### B MP #### [facility] [address] [place] [address] Dr. Terrence Paige Glucose [Mass/Vol] 133 mg/dL Critically high 74-106 [facility] Comment on above: Performed By: #### B MP #### [facility] [address] [place] [address] Dr. Terrence Paige Potassium [Moles/Vol] 4.2 mmol/L Normal 3.5-5.1 [facility] Comment on above: Performed By: #### B MP #### [facility] [address] [place] [address] Dr. Terrence Paige Sodium [Moles/Vol] 139 mmol/L Normal 136-145 [facility] Comment on above: Performed By: #### B MP #### [facility] [address] [place] [address] Dr. Terrence Paige Urea nitrogen [Mass/Vol] 21.0 mg/dL Critically high 7.0-18.0 [facility] Comment on above: Performed By: #### B MP #### [facility] [address] [address] [address] Terrence Paige Urea nitrogen/Creatinine [Mass ratio] 25.3 mg/mg Normal [facility] Comment on above: Performed By: #### B MP #### [facility] [address] [address] [address] Terrence Paige POC GLUCOSE LABon 10-30-2021 Glucose [Mass/Vol] 115 mg/dL High 70-100 [facility] Comment on above: Performed By: #### 8 5499 ####[facility] [place] [address], [facility] BASIC METABOLIC PANELon 10-10 Calcium [Mass/Vol] 8.4 mg/dL Low 8.6-10.3 [facility] Comment on above: Order Comment: No: D o not add to previous draw Performed By: #### 1 69, 44357 ####[facility] [place] [address], [facility] Chloride [Moles/Vol] 101 mmol/L Normal 98-107 [facility] Comment on above: Order Comment: No: D o not add to previous draw Performed By: #### 1 69, 88560 ####[facility] [place] [address], [place] CO2 [Moles/Vol] 26 mmol/L Normal 21-31 [facility] Comment on above: Order Comment: No: D o not add to previous draw Performed By: #### 1 69, 72047 ####[facility] [id number], [facility] Creatinine [Mass/Vol] 0.80 mg/dL Normal 0.70-1.30 [facility] Comment on above: Order Comment: No: D o not add to previous draw Performed By: #### 1 69, 92835 ####[facility] [place] [address], [place] GFR/1.73 sq M.predicted among blacks MDRD (S/P/Bld) [Vol rate/Area] mL/min/{1.73_m2} Normal >60 [facility] Comment on above: Order Comment: No: D o not add to previous draw Performed By: #### 1 69, 49655 ####[facility] [place] [address], [place] GFR/1.73 sq M.predicted among non-blacks MDRD (S/P/Bld) [Vol rate/Area] mL/min/{1.73_m2} Normal >60 [facility] Comment on above: Order Comment: No: D o not add to previous draw Performed By: #### 1 69, 96306 ####[facility] [place] [address], [place] Glucose [Mass/Vol] 198 mg/dL High 70-100 [facility] Comment on above: Order Comment: No: D o not add to previous draw Performed By: #### 1 69, 40103 ####[facility] [place] [address], [place] Potassium [Moles/Vol] 3.9 mmol/L Normal 3.5-5.1 [facility] Comment on above: Order Comment: No: D o not add to previous draw Performed By: #### 1 69, 11008 ####[facility] [place] [address], [place] Sodium [Moles/Vol] 136 mmol/L Normal 136-145 [facility] Comment on above: Order Comment: No: D o not add to previous draw Performed By: #### 1 69, 26487 ####[facility] [place] [address], [place] Urea nitrogen [Mass/Vol] 36 mg/dL High 7-25 [facility] Comment on above: Order Comment: No: D o not add to previous draw Performed By: #### 1 0070, 91175 ####[facility] CBC COMPLETE BLOOD COUNTon 0 10-29-2021 Erythrocyte distribution width (RBC) [Ratio] 13.8 % Normal 11.5-15.0 [facility] Comment on above: Order Comment: No: D o not add to previous draw Performed By: #### 5 0608 ####[facility] Hematocrit (Bld) [Volume fraction] 34.7 % Low 39.0-50.0 [facility] Comment on above: Order Comment: No: D o not add to previous draw Performed By: #### 5 0608 ####[facility] Hemoglobin (Bld) [Mass/Vol] 11.0 g/dL Low 13.0-17.0 [facility] Comment on above: Order Comment: No: D o not add to previous draw Performed By: #### 5 0608 ####[facility] [address], [facility] MCH (RBC) [Entitic mass] 27.4 pg Normal 27.0-33.0 [facility] Comment on above: Order Comment: No: D o not add to previous draw Performed By: #### 5 0608 ####[facility] [place] [address], [facility] MCHC (RBC) [Mass/Vol] 31.7 g/dL Low 32.0-35.0 [facility] Comment on above: Order Comment: No: D o not add to previous draw Performed By: #### 5 0608 ####[facility] [place] [address], [place] MCV (RBC) [Entitic vol] 86.3 fL Normal 82.0-98.0 [facility] Comment on above: Order Comment: No: D o not add to previous draw Performed By: #### 5 0608 ####[facility] [place] [address], [facility] Nucleated RBC/100 WBC (Bld) [Ratio] 0 % Normal 0-0 [facility] Comment on above: Order Comment: No: D o not add to previous draw Performed By: #### 5 0608 ####[facility] [place] [address], [facility] PLAT CNT 223 10*3/uL Normal 150-400 [facility] Comment on above: Order Comment: No: D o not add to previous draw Performed By: #### 5 0608 ####[place] [id number] [address], [facility] RBC (Bld) [#/Vol] 4.02 10*6/uL Low 4.20-5.70 [facility] Comment on above: Order Comment: No: D o not add to previous draw Performed By: #### 5 0608 ####[facility] [place] [address], [facility] WBC (Bld) [#/Vol] 6.29 10*3/uL Normal 4.00-10.60 [facility] Comment on above: Order Comment: No: D o not add to previous draw Performed By: #### 5 0608 ####[facility] [place] [address], [facility] MAGNESIUM BLOODon 10-29-2021 Magnesium [Mass/Vol] 2.4 mg/dL Normal 1.9-2.7 [facility] Comment on above: Order Comment: No: D o not add to previous draw Performed By: #### 1 0070, 40159 ####[facility] [place] [address], [facility] POC GLUCOSE LABon 10-29-2021 Glucose [Mass/Vol] 120 mg/dL High 70-100 [facility] Comment on above: Performed By: #### 8 5499 ####[facility] [place] [address], [place] Glucose [Mass/Vol] 188 mg/dL High 70-100 [facility] Comment on above: Performed By: #### 8 5499 ####[facility] [place] [address], [place] Glucose [Mass/Vol] 173 mg/dL High 70-100 [facility] Comment on above: Performed By: #### 8 5499 ####[facility] [place] [address], [place] Glucose [Mass/Vol] 149 mg/dL High 70-100 [facility] Comment on above: Performed By: #### 8 5499 ####[facility] [place] [address], [place] BASIC METABOLIC PANELon 06 Calcium [Mass/Vol] 8.7 mg/dL Normal 8.6-10.3 [facility] Comment on above: Order Comment: No: D o not add to previous draw Performed By: #### 0 0071, 63338 ####[facility] [place] [address], [place] Chloride [Moles/Vol] 100 mmol/L Normal 98-107 [facility] Comment on above: Order Comment: No: D o not add to previous draw Performed By: #### 0 0071, 17821 ####[facility] [place] [address], [place] CO2 [Moles/Vol] 26 mmol/L Normal 21-31 [facility] Comment on above: Order Comment: No: D o not add to previous draw Performed By: #### 0 0071, 58453 ####[facility] [place] [address], [facility] Creatinine [Mass/Vol] 0.97 mg/dL Normal 0.70-1.30 [facility] Comment on above: Order Comment: No: D o not add to previous draw Performed By: #### 0 0071, 30734 ####[facility] [place] [address], [place] GFR/1.73 sq M.predicted among blacks MDRD (S/P/Bld) [Vol rate/Area] mL/min/{1.73_m2} Normal >60 [facility] Comment on above: Order Comment: No: D o not add to previous draw Performed By: #### 0 0071, 23225 ####[facility] [place] [address], [facility] GFR/1.73 sq M.predicted among non-blacks MDRD (S/P/Bld) [Vol rate/Area] mL/min/{1.73_m2} Normal >60 [facility] Comment on above: Order Comment: No: D o not add to previous draw Performed By: #### 0 0071, 02329 ####[facility] [place] [address], [facility] Glucose [Mass/Vol] 242 mg/dL High 70-100 [facility] Comment on above: Order Comment: No: D o not add to previous draw Performed By: #### 0 0071, 37878 ####[facility] [place] [address], [place] Potassium [Moles/Vol] 4.0 mmol/L Normal 3.5-5.1 [facility] Comment on above: Order Comment: No: D o not add to previous draw Performed By: #### 0 0071, 22162 ####[facility] [place] [address], [place] Sodium [Moles/Vol] 136 mmol/L Normal 136-145 [facility] Comment on above: Order Comment: No: D o not add to previous draw Performed By: #### 0 0071, 44107 ####[facility] Urea nitrogen [Mass/Vol] 40 mg/dL High 7-25 [facility] Comment on above: Order Comment: No: D o not add to previous draw Performed By: #### 0 0071, 14864 ####[facility] CBC COMPLETE BLOOD COUNTon 0 10-28-2021 Erythrocyte distribution width (RBC) [Ratio] 13.9 % Normal 11.5-15.0 [facility] Comment on above: Order Comment: No: D o not add to previous draw Performed By: #### 5 0608 ####[facility] Hematocrit (Bld) [Volume fraction] 38.5 % Low 39.0-50.0 [facility] Comment on above: Order Comment: No: D o not add to previous draw Performed By: #### 5 0608 ####[address] Hemoglobin (Bld) [Mass/Vol] 12.3 g/dL Low 13.0-17.0 [facility] Comment on above: Order Comment: No: D o not add to previous draw Performed By: #### 5 0608 ####[facility] [place] [address], [facility] MCH (RBC) [Entitic mass] 27.3 pg Normal 27.0-33.0 [facility] Comment on above: Order Comment: No: D o not add to previous draw Performed By: #### 5 0608 ####[facility] [place] [address], [place] MCHC (RBC) [Mass/Vol] 31.9 g/dL Low 32.0-35.0 [facility] Comment on above: Order Comment: No: D o not add to previous draw Performed By: #### 5 0608 ####[facility] MCV (RBC) [Entitic vol] 85.4 fL Normal 82.0-98.0 [facility] Comment on above: Order Comment: No: D o not add to previous draw Performed By: #### 5 0608 ####[facility] Nucleated RBC/100 WBC (Bld) [Ratio] 0 % Normal 0-0 [facility] Comment on above: Order Comment: No: D o not add to previous draw Performed By: #### 5 0608 ####[facility] [place] [address], [facility] PLAT CNT 237 10*3/uL Normal 150-400 [facility] Comment on above: Order Comment: No: D o not add to previous draw Performed By: #### 5 0608 ####[address] RBC (Bld) [#/Vol] 4.51 10*6/uL Normal 4.20-5.70 [facility] Comment on above: Order Comment: No: D o not add to previous draw Performed By: #### 5 0608 ####[facility] [place] [address], [facility] WBC (Bld) [#/Vol] 7.57 10*3/uL Normal 4.00-10.60 [facility] Comment on above: Order Comment: No: D o not add to previous draw Performed By: #### 5 0608 ####[facility] [place] [address].[address] MAGNESIUM BLOODon 10-28-2021 Magnesium [Mass/Vol] 2.8 mg/dL High 1.9-2.7 [facility] Comment on above: Order Comment: No: D o not add to previous draw Performed By: #### 0 0071, 53957 ####[facility] [place] [address], [place] POC GLUCOSE LABon 10-28-2021 Glucose [Mass/Vol] 249 mg/dL High 70-100 [facility] Comment on above: Performed By: #### 8 5499 ####[facility] [place] [address], [place] Glucose [Mass/Vol] 192 mg/dL High 70-100 [facility] Comment on above: Performed By: #### 8 5499 ####[facility] [place] [address], [place] Glucose [Mass/Vol] 200 mg/dL High 70-100 [facility] Comment on above: Performed By: #### 8 5499 ####[facility] [place] [address], [place] Glucose [Mass/Vol] 132 mg/dL High 70-100 [facility] Comment on above: Performed By: #### 8 5499 ####[facility] [place] [address], [place] BASIC METABOLIC PANELon 10-09 Calcium [Mass/Vol] 8.9 mg/dL Normal 8.6-10.3 [facility] Comment on above: Order Comment: No: D o not add to previous draw Performed By: #### 0 0071, 19370 ####[facility] [place] [address], [place] Chloride [Moles/Vol] 96 mmol/L Low 98-107 [facility] Comment on above: Order Comment: No: D o not add to previous draw Performed By: #### 0 0071, 89292 ####[facility] [place] [address], [facility] CO2 [Moles/Vol] 28 mmol/L Normal 21-31 [facility] Comment on above: Order Comment: No: D o not add to previous draw Performed By: #### 0 0071, 02814 ####[facility] [place] [address], [place] Creatinine [Mass/Vol] 1.21 mg/dL Normal 0.70-1.30 [facility] Comment on above: Order Comment: No: D o not add to previous draw Performed By: #### 0 0071, 99087 ####[facility] [place] [address], [place] GFR/1.73 sq M.predicted among blacks MDRD (S/P/Bld) [Vol rate/Area] mL/min/{1.73_m2} Normal >60 [facility] Comment on above: Order Comment: No: D o not add to previous draw Performed By: #### 0 0071, 28039 ####[facility] [place] [address], [place] GFR/1.73 sq M.predicted among non-blacks MDRD (S/P/Bld) [Vol rate/Area] mL/min/{1.73_m2} Normal >60 [facility] Comment on above: Order Comment: No: D o not add to previous draw Performed By: #### 0 0071, 81131 ####[facility] [place] [address], [place] Glucose [Mass/Vol] 186 mg/dL High 70-100 [facility] Comment on above: Order Comment: No: D o not add to previous draw Performed By: #### 0 0071, 87216 ####[facility] [place] [address], [place] Potassium [Moles/Vol] 3.6 mmol/L Normal 3.5-5.1 [facility] Comment on above: Order Comment: No: D o not add to previous draw Performed By: #### 0 0071, 22130 ####[facility] Sodium [Moles/Vol] 133 mmol/L Low 136-145 [facility] Comment on above: Order Comment: No: D o not add to previous draw Performed By: #### 0 0071, 77533 ####[facility] [facility] Urea nitrogen [Mass/Vol] 50 mg/dL High 7-25 [facility] Comment on above: Order Comment: No: D o not add to previous draw Performed By: #### 0 0071, 30351 ####[facility] CBC COMPLETE BLOOD COUNTon 0 - Erythrocyte distribution width (RBC) [Ratio] 13.8 % Normal 11.5-15.0 [facility] Comment on above: Order Comment: No: D o not add to previous draw Performed By: #### 5 0608 ####[facility] Hematocrit (Bld) [Volume fraction] 38.7 % Low 39.0-50.0 [facility] Comment on above: Order Comment: No: D o not add to previous draw Performed By: #### 5 0608 ####[facility] [facility] [place] [address], [facility] Hemoglobin (Bld) [Mass/Vol] 12.6 g/dL Low 13.0-17.0 [facility] Comment on above: Order Comment: No: D o not add to previous draw Performed By: #### 5 0608 ####[facility] [place] [address], [facility] MCH (RBC) [Entitic mass] 27.1 pg Normal 27.0-33.0 [facility] Comment on above: Order Comment: No: D o not add to previous draw Performed By: #### 5 0608 ####[facility] MCHC (RBC) [Mass/Vol] 32.6 g/dL Normal 32.0-35.0 [facility] Comment on above: Order Comment: No: D o not add to previous draw Performed By: #### 5 0608 ####[facility] [place] [address], [facility] MCV (RBC) [Entitic vol] 83.2 fL Normal 82.0-98.0 [facility] Comment on above: Order Comment: No: D o not add to previous draw Performed By: #### 5 0608 ####[facility] Nucleated RBC/100 WBC (Bld) [Ratio] 0 % Normal 0-0 [facility] Comment on above: Order Comment: No: D o not add to previous draw Performed By: #### 5 0608 ####[facility] [place] [address], [facility] PLAT CNT 241 10*3/uL Normal 150-400 [facility] Comment on above: Order Comment: No: D o not add to previous draw Performed By: #### 5 0608 ####[facility] [place] [address], [facility] RBC (Bld) [#/Vol] 4.65 10*6/uL Normal 4.20-5.70 [facility] Comment on above: Order Comment: No: D o not add to previous draw Performed By: #### 5 0608 ####[facility] [place] [address], [facility] WBC (Bld) [#/Vol] 7.56 10*3/uL Normal 4.00-10.60 [facility] Comment on above: Order Comment: No: D o not add to previous draw Performed By: #### 5 0608 ####[facility] [place] [address], [facility] MAGNESIUM BLOODon 10-27-2021 Magnesium [Mass/Vol] 2.9 mg/dL High 1.9-2.7 [facility] Comment on above: Order Comment: No: D o not add to previous draw Performed By: #### 0 0071, 49500 ####[facility] [place] [address], [facility] POC GLUCOSE LABon 10-27-2021 Glucose [Mass/Vol] 127 mg/dL High 70-100 [facility] Comment on above: Performed By: #### 8 5499 ####[facility] [place] [address], [facility] Glucose [Mass/Vol] 185 mg/dL High 70-100 [facility] Comment on above: Performed By: #### 8 5499 ####[facility] [facility] [place] [address], [facility] Glucose [Mass/Vol] 353 mg/dL High 70-100 [facility] Comment on above: Performed By: #### 8 5499 ####[facility] [place] [address], [facility] Glucose [Mass/Vol] 146 mg/dL High 70-100 [facility] Comment on above: Performed By: #### 8 5499 ####[facility] [place] [address], [facility] BASIC METABOLIC PANELon 10-09 Calcium [Mass/Vol] 8.6 mg/dL Normal 8.6-10.3 [facility] Comment on above: Order Comment: No: D o not add to previous draw Performed By: #### 1 69, 79865 ####[facility] [place] [address], [facility] Chloride [Moles/Vol] 89 mmol/L Low 98-107 [facility] Comment on above: Order Comment: No: D o not add to previous draw Performed By: #### 1 69, 88529 ####[facility] [id number], [facility] CO2 [Moles/Vol] 33 mmol/L High 21-31 [facility] Comment on above: Order Comment: No: D o not add to previous draw Performed By: #### 1 69, 08173 ####[facility] .[place] [id number], [facility] Creatinine [Mass/Vol] 1.76 mg/dL High 0.70-1.30 [facility] Comment on above: Order Comment: No: D o not add to previous draw Performed By: #### 1 69, 89757 ####[facility] [facility] [place] [address], [facility] eGFR- 48 ml/min/1.73sq m Abnormal >60 [facility] Comment on above: Order Comment: No: D o not add to previous draw Performed By: #### 1 69, 56832 ####[facility] [facility] [place] [address], [facility] eGFR- non- 40 ml/min/1.73sq m Abnormal >60 [facility] Comment on above: Order Comment: No: D o not add to previous draw Performed By: #### 1 69, 51083 ####[facility] [id number], [facility] Glucose [Mass/Vol] 191 mg/dL High 70-100 [facility] Comment on above: Order Comment: No: D o not add to previous draw Performed By: #### 1 69, 10334 ####[facility] Potassium [Moles/Vol] 3.2 mmol/L Low 3.5-5.1 [facility] Comment on above: Order Comment: No: D o not add to previous draw Performed By: #### 1 69, 09148 ####[facility] [facility] Sodium [Moles/Vol] 133 mmol/L Low 136-145 [facility] Comment on above: Order Comment: No: D o not add to previous draw Performed By: #### 1 69, 10726 ####[facility] Urea nitrogen [Mass/Vol] 62 mg/dL High 7-25 [facility] Comment on above: Order Comment: No: D o not add to previous draw Performed By: #### 1 69, 56884 ####[facility] CBC COMPLETE BLOOD COUNTon 0 - Erythrocyte distribution width (RBC) [Ratio] 13.8 % Normal 11.5-15.0 [facility] Comment on above: Order Comment: No: D o not add to previous draw Performed By: #### 5 0608 ####[facility] Hematocrit (Bld) [Volume fraction] 35.8 % Low 39.0-50.0 [facility] Comment on above: Order Comment: No: D o not add to previous draw Performed By: #### 5 0608 ####[facility] Hemoglobin (Bld) [Mass/Vol] 11.9 g/dL Low 13.0-17.0 [facility] Comment on above: Order Comment: No: D o not add to previous draw Performed By: #### 5 0608 ####[facility] MCH (RBC) [Entitic mass] 27.6 pg Normal 27.0-33.0 [facility] Comment on above: Order Comment: No: D o not add to previous draw Performed By: #### 5 0608 ####[facility] MCHC (RBC) [Mass/Vol] 33.2 g/dL Normal 32.0-35.0 [facility] Comment on above: Order Comment: No: D o not add to previous draw Performed By: #### 5 0608 ####[facility] [place] [address] MCV (RBC) [Entitic vol] 83.1 fL Normal 82.0-98.0 [facility] Comment on above: Order Comment: No: D o not add to previous draw Performed By: #### 5 0608 ####[facility] Nucleated RBC/100 WBC (Bld) [Ratio] 0 % Normal 0-0 [facility] Comment on above: Order Comment: No: D o not add to previous draw Performed By: #### 5 0608 ####[facility] [place] [address].[address] PLAT CNT 230 10*3/uL Normal 150-400 [facility] Comment on above: Order Comment: No: D o not add to previous draw Performed By: #### 5 0608 ####[address] RBC (Bld) [#/Vol] 4.31 10*6/uL Normal 4.20-5.70 [facility] Comment on above: Order Comment: No: D o not add to previous draw Performed By: #### 5 0608 ####[facility] [place] [address], [place] WBC (Bld) [#/Vol] 9.97 10*3/uL Normal 4.00-10.60 [facility] Comment on above: Order Comment: No: D o not add to previous draw Performed By: #### 5 0608 ####[facility] [place] [address], [place] MAGNESIUM BLOODon 10-26-2021 Magnesium [Mass/Vol] 2.4 mg/dL Normal 1.9-2.7 [facility] Comment on above: Order Comment: No: D o not add to previous draw Performed By: #### 1 0070, 96686 ####[facility] [place] [address], [place] POC GLUCOSE LABon 10-26-2021 Glucose [Mass/Vol] 181 mg/dL High 70-100 [facility] Comment on above: Performed By: #### 8 5499 ####[facility] [place] [address], [place] Glucose [Mass/Vol] 202 mg/dL High 70-100 [facility] Comment on above: Performed By: #### 8 5499 ####[facility] [place] [address], [place] Glucose [Mass/Vol] 250 mg/dL High 70-100 [facility] Comment on above: Performed By: #### 8 5499 ####[facility] [place] [address], [place] Glucose [Mass/Vol] 196 mg/dL High 70-100 [facility] Comment on above: Performed By: #### 8 5499 ####[facility] [place] [address], [place] SODIUM URINE RANDOMon 2021 Sodium (U) [Moles/Vol] 43 mmol/L Normal [facility] Comment on above: Order Comment: No: D o not add to previous draw Result Comment: Ther e are no established reference values for random urine specimens Performed By: #### 4 3006 ####[facility] [facility] [address], [facility] UA,MICROSCOPIC REQUIREDon Appearance (U) CLEAR Normal CLEAR [facility] Comment on above: Order Comment: No: D o not add to previous draw Performed By: #### 9 0150 ####[facility] [place] [address], [facility] Bilirubin Ql (U) Negative Normal NEGATIVE [facility] Comment on above: Order Comment: No: D o not add to previous draw Performed By: #### 9 0150 ####[facility] [place] [address], [facility] BUDDING YEAST OCC Abnormal NONE SEEN [facility] Comment on above: Order Comment: No: D o not add to previous draw Performed By: #### 9 0150 ####[facility] [place] [address], [facility] Color (U) YELLOW Normal YELLOW [facility] Comment on above: Order Comment: No: D o not add to previous draw Performed By: #### 9 0150 ####[facility] [place] [address], [facility] EPIS NONE SEEN Normal FEW,OCC,NONE SEEN [facility] Comment on above: Order Comment: No: D o not add to previous draw Performed By: #### 9 0150 ####[facility] .[place] [address], [facility] Glucose Ql (U) >=500 Abnormal NEGATIVE [facility] Comment on above: Order Comment: No: D o not add to previous draw Performed By: #### 9 0150 ####[facility] [place] [address], [facility] Hemoglobin Ql (U) Negative Normal NEGATIVE [facility] Comment on above: Order Comment: No: D o not add to previous draw Performed By: #### 9 0150 ####[facility] [place] [address], [facility] KETONE Negative Normal NEGATIVE [facility] Comment on above: Order Comment: No: D o not add to previous draw Performed By: #### 9 0150 ####[facility] [place] [address], [facility] LEUK ROMEO Negative Normal NEGATIVE [facility] Comment on above: Order Comment: No: D o not add to previous draw Performed By: #### 9 0150 ####[facility] [facility] [place] [address], [facility] Nitrite Ql (U) Negative Normal NEGATIVE [facility] Comment on above: Order Comment: No: D o not add to previous draw Performed By: #### 9 0150 ####[facility] [place] [address], [facility] pH (U) 8.0 [pH] Normal 5.0-8.0 [facility] Comment on above: Order Comment: No: D o not add to previous draw Performed By: #### 9 0150 ####[facility] [place] [address], [facility] Protein Ql (U) 30 mg/dL Abnormal NEGATIVE [facility] Comment on above: Order Comment: No: D o not add to previous draw Performed By: #### 9 0150 ####[facility] [place] [address], [facility] RBC NONE SEEN Normal NONE SEEN [facility] Comment on above: Order Comment: No: D o not add to previous draw Performed By: #### 9 0150 ####[facility] [place] [address], [facility] SPEC GRAV 1.017 Normal 1.015-1.020 [facility] Comment on above: Order Comment: No: D o not add to previous draw Performed By: #### 9 0150 ####[facility] [place] [address], [facility] WBC UA 0-2 Abnormal NONE SEEN [facility] Comment on above: Order Comment: No: D o not add to previous draw Performed By: #### 9 0150 ####[facility] [place] [address], [facility] ARTERIAL BLOOD GAS WITH ICAo n 10-25-2021 BASE EXCESS 15 mmol/L High -2-3 [facility] Comment on above: Performed By: #### 8 4511 ####[facility] [place] [address], [facility] DELIVERY SYSTEMS ROOM AIR Normal [facility] Comment on above: Performed By: #### 8 4511 ####[facility] [place] [address], [facility] HCO3 (Bld) [Moles/Vol] 39 mmol/L Critically high 21-28 [facility] Comment on above: Performed By: #### 8 4511 ####[facility] [place] [address], [facility] IONIZED CALCIUM 1.05 mmol/L Low 1.13-1.32 [facility] Comment on above: Performed By: #### 8 4511 ####[facility] [place] [address], [facility] Oxygen (Bld) [Partial pressure] 79 mm[Hg] Low 83-108 [facility] Comment on above: Result Comment: RESU LTS CHECKED AND CALLED. ACCURATELY READ BACK BY Joaquim ELLINGTON RN Performed By: #### 8 4511 ####[facility] [place] [address], [facility] Oxygen saturation in Blood 94.6 % Normal 94.0-97.0 [facility] Comment on above: Performed By: #### 8 4511 ####[facility] [place] [address], [facility] PCO2 44 mmHg Normal 35-45 [facility] Comment on above: Performed By: #### 8 4511 ####[facility] [place] [address], [facility] pH (Bld) 7.56 [pH] Critically high 7.35-7.45 [facility] Comment on above: Result Comment: RESU LTS CHECKED AND CALLED. ACCURATELY READ BACK BY Joaquim ELLINGTON RN Performed By: #### 8 4511 ####[facility] [facility] [place] [address], [facility] BASIC METABOLIC PANELon 06-1 Calcium [Mass/Vol] 9.1 mg/dL Normal 8.6-10.3 [facility] Comment on above: Order Comment: No: D o not add to previous draw Performed By: #### 1 69, 74575 ####[facility] [place] [address], [facility] Chloride [Moles/Vol] 88 mmol/L Low 98-107 [facility] Comment on above: Order Comment: No: D o not add to previous draw Performed By: #### 1 69, 45746 ####[facility] [place] [address], [place] CO2 [Moles/Vol] 31 mmol/L Normal 21-31 [facility] Comment on above: Order Comment: No: D o not add to previous draw Performed By: #### 1 69, 55454 ####[facility] [place] [address], [place] Creatinine [Mass/Vol] 1.31 mg/dL High 0.70-1.30 [facility] Comment on above: Order Comment: No: D o not add to previous draw Performed By: #### 1 69, 01055 ####[facility] [place] [address], [facility] eGFR- non- 56 ml/min/1.73sq m Abnormal >60 [facility] Comment on above: Order Comment: No: D o not add to previous draw Performed By: #### 1 69, 22706 ####[facility] [place] [address], [facility] GFR/1.73 sq M.predicted among blacks MDRD (S/P/Bld) [Vol rate/Area] mL/min/{1.73_m2} Normal >60 [facility] Comment on above: Order Comment: No: D o not add to previous draw Performed By: #### 1 69, 35886 ####[facility] [place] [address], [facility] Glucose [Mass/Vol] 221 mg/dL High 70-100 [facility] Comment on above: Order Comment: No: D o not add to previous draw Performed By: #### 1 69, 13825 ####[facility] [place] [address], [facility] Potassium [Moles/Vol] 3.5 mmol/L Normal 3.5-5.1 [facility] Comment on above: Order Comment: No: D o not add to previous draw Performed By: #### 1 69, 33077 ####[facility] [place] [address], [place] Sodium [Moles/Vol] 136 mmol/L Normal 136-145 [facility] Comment on above: Order Comment: No: D o not add to previous draw Performed By: #### 1 69, 92137 ####[facility] [place] [address], [place] Urea nitrogen [Mass/Vol] 49 mg/dL High 7-25 [facility] Comment on above: Order Comment: No: D o not add to previous draw Performed By: #### 1 0070, 68492 ####[facility] CBC COMPLETE BLOOD COUNTon 0 10-25-2021 Erythrocyte distribution width (RBC) [Ratio] 14.1 % Normal 11.5-15.0 [facility] Comment on above: Order Comment: No: D o not add to previous draw Performed By: #### 5 0608 ####[facility] Hematocrit (Bld) [Volume fraction] 38.1 % Low 39.0-50.0 [facility] Comment on above: Order Comment: No: D o not add to previous draw Performed By: #### 5 0608 ####[facility] Hemoglobin (Bld) [Mass/Vol] 12.6 g/dL Low 13.0-17.0 [facility] Comment on above: Order Comment: No: D o not add to previous draw Performed By: #### 5 0608 ####[facility] MCH (RBC) [Entitic mass] 27.2 pg Normal 27.0-33.0 [facility] Comment on above: Order Comment: No: D o not add to previous draw Performed By: #### 5 0608 ####[facility] [place] [address], [facility] MCHC (RBC) [Mass/Vol] 33.1 g/dL Normal 32.0-35.0 [facility] Comment on above: Order Comment: No: D o not add to previous draw Performed By: #### 5 0608 ####[facility] [place] [address], [facility] MCV (RBC) [Entitic vol] 82.3 fL Normal 82.0-98.0 [facility] Comment on above: Order Comment: No: D o not add to previous draw Performed By: #### 5 0608 ####[facility] [place] [address], [facility] Nucleated RBC/100 WBC (Bld) [Ratio] 0 % Normal 0-0 [facility] Comment on above: Order Comment: No: D o not add to previous draw Performed By: #### 5 0608 ####[facility] [place] [address], [facility] PLAT CNT 274 10*3/uL Normal 150-400 [facility] Comment on above: Order Comment: No: D o not add to previous draw Performed By: #### 5 0608 ####[facility] [place] [address], [facility] RBC (Bld) [#/Vol] 4.63 10*6/uL Normal 4.20-5.70 [facility] Comment on above: Order Comment: No: D o not add to previous draw Performed By: #### 5 0608 ####[facility] [place] [address], [facility] WBC (Bld) [#/Vol] 10.16 10*3/uL Normal 4.00-10.60 [facility] Comment on above: Order Comment: No: D o not add to previous draw Performed By: #### 5 0608 ####[facility] [facility] [place] [address], [facility] FOOT RIGHT 3 VWSon 2 FOOT RIGHT 3 VWS Normal [facility] Comment on above: Order Comment: Osteo myelitis MAGNESIUM BLOODon 10-25-2021 Magnesium [Mass/Vol] 2.2 mg/dL Normal 1.9-2.7 [facility] Comment on above: Order Comment: No: D o not add to previous draw Performed By: #### 1 0070, 98976 ####[facility] [place] [address], [facility] POC GLUCOSE LABon 10-25-2021 Glucose [Mass/Vol] 300 mg/dL High 70-100 [facility] Comment on above: Performed By: #### 8 5499 ####[facility] [place] [address], [place] Glucose [Mass/Vol] 248 mg/dL High 70-100 [facility] Comment on above: Performed By: #### 8 5499 ####[facility] [facility] [place] [address], [place] Glucose [Mass/Vol] 225 mg/dL High 70-100 [facility] Comment on above: Performed By: #### 8 5499 ####[facility] [place] [address], [facility] PORTABLE CHEST 1 VIEWon 10-09 PORTABLE CHEST 1 VIEW Normal [facility] Comment on above: Order Comment: Aspir ation BASIC METABOLIC PANELon 10-09 Calcium [Mass/Vol] 8.9 mg/dL Normal 8.6-10.3 [facility] Comment on above: Order Comment: No: D o not add to previous draw Performed By: #### 0 0071, 25507 ####[facility] [place] [address], [place] Chloride [Moles/Vol] 95 mmol/L Low 98-107 [facility] Comment on above: Order Comment: No: D o not add to previous draw Performed By: #### 0 0071, 10398 ####[facility] [place] [address], [place] CO2 [Moles/Vol] 32 mmol/L High 21-31 [facility] Comment on above: Order Comment: No: D o not add to previous draw Performed By: #### 0 0071, 80143 ####[facility] [place] [address], [facility] Creatinine [Mass/Vol] 1.19 mg/dL Normal 0.70-1.30 [facility] Comment on above: Order Comment: No: D o not add to previous draw Performed By: #### 0 0071, 40353 ####[facility] [place] [address], [place] GFR/1.73 sq M.predicted among blacks MDRD (S/P/Bld) [Vol rate/Area] mL/min/{1.73_m2} Normal >60 [facility] Comment on above: Order Comment: No: D o not add to previous draw Performed By: #### 0 0071, 68962 ####[facility] [place] [address], [place] GFR/1.73 sq M.predicted among non-blacks MDRD (S/P/Bld) [Vol rate/Area] mL/min/{1.73_m2} Normal >60 [facility] Comment on above: Order Comment: No: D o not add to previous draw Performed By: #### 0 0071, 29203 ####[facility] [place] [address], [place] Glucose [Mass/Vol] 148 mg/dL High 70-100 [facility] Comment on above: Order Comment: No: D o not add to previous draw Performed By: #### 0 0071, 54127 ####[facility] [place] [address], [place] Potassium [Moles/Vol] 3.5 mmol/L Normal 3.5-5.1 [facility] Comment on above: Order Comment: No: D o not add to previous draw Performed By: #### 0 0071, 98472 ####[facility] Sodium [Moles/Vol] 138 mmol/L Normal 136-145 [facility] Comment on above: Order Comment: No: D o not add to previous draw Performed By: #### 0 0071, 65388 ####[facility] [facility] Urea nitrogen [Mass/Vol] 39 mg/dL High 7-25 [facility] Comment on above: Order Comment: No: D o not add to previous draw Performed By: #### 0 0071, 25539 ####[facility] CBC COMPLETE BLOOD COUNTon 0 10-24-2021 Erythrocyte distribution width (RBC) [Ratio] 14.2 % Normal 11.5-15.0 [facility] Comment on above: Order Comment: No: D o not add to previous draw Performed By: #### 5 0608 ####[facility] Hematocrit (Bld) [Volume fraction] 34.7 % Low 39.0-50.0 [facility] Comment on above: Order Comment: No: D o not add to previous draw Performed By: #### 5 0608 ####[place] [address] Hemoglobin (Bld) [Mass/Vol] 11.3 g/dL Low 13.0-17.0 [facility] Comment on above: Order Comment: No: D o not add to previous draw Performed By: #### 5 0608 ####[facility] [place] [address], [facility] MCH (RBC) [Entitic mass] 27.4 pg Normal 27.0-33.0 [facility] Comment on above: Order Comment: No: D o not add to previous draw Performed By: #### 5 0608 ####[facility] [place] [address], [place] [address], [place] MCHC (RBC) [Mass/Vol] 32.6 g/dL Normal 32.0-35.0 [facility] Comment on above: Order Comment: No: D o not add to previous draw Performed By: #### 5 0608 ####[facility] [place] [address], [facility] MCV (RBC) [Entitic vol] 84.0 fL Normal 82.0-98.0 [facility] Comment on above: Order Comment: No: D o not add to previous draw Performed By: #### 5 0608 ####[facility] Nucleated RBC/100 WBC (Bld) [Ratio] 0 % Normal 0-0 [facility] Comment on above: Order Comment: No: D o not add to previous draw Performed By: #### 5 0608 ####[facility] [place] [address], [facility] PLAT CNT 234 10*3/uL Normal 150-400 [facility] Comment on above: Order Comment: No: D o not add to previous draw Performed By: #### 5 0608 ####[place] [address] RBC (Bld) [#/Vol] 4.13 10*6/uL Low 4.20-5.70 [facility] Comment on above: Order Comment: No: D o not add to previous draw Performed By: #### 5 0608 ####[facility] [place] [address], [facility] WBC (Bld) [#/Vol] 9.88 10*3/uL Normal 4.00-10.60 [facility] Comment on above: Order Comment: No: D o not add to previous draw Performed By: #### 5 0608 ####[facility] [facility] [place] [address], [place] MAGNESIUM BLOODon 10-24-2021 Magnesium [Mass/Vol] 2.1 mg/dL Normal 1.9-2.7 [facility] Comment on above: Order Comment: No: D o not add to previous draw Performed By: #### 0 0071, 41758 ####[facility] [place] [address], [place] POC GLUCOSE LABon 10-24-2021 Glucose [Mass/Vol] 215 mg/dL High 70-100 [facility] Comment on above: Performed By: #### 8 5499 ####[facility] [place] [address], [place] Glucose [Mass/Vol] 247 mg/dL High 70-100 [facility] Comment on above: Performed By: #### 8 5499 ####[facility] [place] [address], [place] Glucose [Mass/Vol] 196 mg/dL High 70-100 [facility] Comment on above: Performed By: #### 8 5499 ####[facility] [place] [address], [place] Glucose [Mass/Vol] 173 mg/dL High 70-100 [facility] Comment on above: Performed By: #### 8 5499 ####[facility] [place] [address], [place] BASIC METABOLIC PANELon 10-09 Calcium [Mass/Vol] 8.7 mg/dL Normal 8.6-10.3 [facility] Comment on above: Order Comment: No: D o not add to previous drawRefused draw nurse Iram Performed By: #### 1 0070, 95796 ####[facility] [place] [address], [place] Chloride [Moles/Vol] 103 mmol/L Normal 98-107 [facility] Comment on above: Order Comment: No: D o not add to previous drawRefused draw nurse Iram Performed By: #### 1 69, 41267 ####[facility] [place] [address], [facility] CO2 [Moles/Vol] 28 mmol/L Normal 21-31 [facility] Comment on above: Order Comment: No: D o not add to previous drawRefused draw nurse Iram Performed By: #### 1 69, 51333 ####[facility] [place] [address], [facility] Creatinine [Mass/Vol] 1.09 mg/dL Normal 0.70-1.30 [facility] Comment on above: Order Comment: No: D o not add to previous drawRefused draw nurse Iram Performed By: #### 1 69, 76662 ####[facility] [place] [address], [facility] GFR/1.73 sq M.predicted among blacks MDRD (S/P/Bld) [Vol rate/Area] mL/min/{1.73_m2} Normal >60 [facility] Comment on above: Order Comment: No: D o not add to previous drawRefused draw nurse Iram Performed By: #### 1 69, 25790 ####[facility] [place] [address], [facility] GFR/1.73 sq M.predicted among non-blacks MDRD (S/P/Bld) [Vol rate/Area] mL/min/{1.73_m2} Normal >60 [facility] Comment on above: Order Comment: No: D o not add to previous drawRefused draw nurse Iram Performed By: #### 1 69, 03641 ####[facility] [place] [address], [facility] Glucose [Mass/Vol] 160 mg/dL High 70-100 [facility] Comment on above: Order Comment: No: D o not add to previous drawRefused draw nurse Iram Performed By: #### 1 69, 24488 ####[facility] Potassium [Moles/Vol] 4.3 mmol/L Normal 3.5-5.1 [facility] Comment on above: Order Comment: No: D o not add to previous drawRefused draw nurse Iram Performed By: #### 1 69, 12394 ####[facility] Sodium [Moles/Vol] 138 mmol/L Normal 136-145 [facility] Comment on above: Order Comment: No: D o not add to previous drawRefused draw nurse Iram Performed By: #### 1 69, 16169 ####[facility] [facility] Urea nitrogen [Mass/Vol] 38 mg/dL High 7-25 [facility] Comment on above: Order Comment: No: D o not add to previous drawRefused draw nurse Iram Performed By: #### 1 69, 48486 ####[place] [address] CBC COMPLETE BLOOD COUNTon 0 - Erythrocyte distribution width (RBC) [Ratio] 14.1 % Normal 11.5-15.0 [facility] Comment on above: Order Comment: No: D o not add to previous drawRefused draw nurse Iram Performed By: #### 5 0608 ####[facility] [facility] Hematocrit (Bld) [Volume fraction] 33.5 % Low 39.0-50.0 [facility] Comment on above: Order Comment: No: D o not add to previous drawRefused draw nurse Iram Performed By: #### 5 0608 ####[facility] Hemoglobin (Bld) [Mass/Vol] 10.4 g/dL Low 13.0-17.0 [facility] Comment on above: Order Comment: No: D o not add to previous drawRefused draw nurse Iram Performed By: #### 5 0608 ####[facility] MCH (RBC) [Entitic mass] 26.9 pg Low 27.0-33.0 [facility] Comment on above: Order Comment: No: D o not add to previous drawRefused draw nurse Iram Performed By: #### 5 0608 ####[address] MCHC (RBC) [Mass/Vol] 31.0 g/dL Low 32.0-35.0 [facility] Comment on above: Order Comment: No: D o not add to previous drawRefused draw nurse Iram Performed By: #### 5 0608 ####[facility] MCV (RBC) [Entitic vol] 86.8 fL Normal 82.0-98.0 [facility] Comment on above: Order Comment: No: D o not add to previous drawRefused draw nurse Iram Performed By: #### 5 0608 ####[address] Nucleated RBC/100 WBC (Bld) [Ratio] 0 % Normal 0-0 [facility] Comment on above: Order Comment: No: D o not add to previous drawRefused draw nurse Iram Performed By: #### 5 0608 ####[facility] [place] [address] PLAT CNT 228 10*3/uL Normal 150-400 [facility] Comment on above: Order Comment: No: D o not add to previous drawRefused draw nurse Iram Performed By: #### 5 0608 ####[facility] [place] [address], [facility] RBC (Bld) [#/Vol] 3.86 10*6/uL Low 4.20-5.70 [facility] Comment on above: Order Comment: No: D o not add to previous drawRefused draw nurse Iram Performed By: #### 5 0608 ####[facility] [facility] [place] [address], [facility] WBC (Bld) [#/Vol] 6.91 10*3/uL Normal 4.00-10.60 [facility] Comment on above: Order Comment: No: D o not add to previous drawRefused draw nurse Iram Performed By: #### 5 0608 ####[facility] [place] [address], [facility] MAGNESIUM BLOODon 10-23-2021 Magnesium [Mass/Vol] 2.3 mg/dL Normal 1.9-2.7 [facility] Comment on above: Order Comment: No: D o not add to previous drawRefused draw nurse Iram Performed By: #### 1 0070, 02003 ####[facility] [place] [address], [facility] POC GLUCOSE LABon 10-23-2021 Glucose [Mass/Vol] 176 mg/dL High 70-100 [facility] Comment on above: Performed By: #### 8 5499 ####[facility] [place] [address], [facility] Glucose [Mass/Vol] 134 mg/dL High 70-100 [facility] Comment on above: Performed By: #### 8 5499 ####[facility] [place] [address], [place] Glucose [Mass/Vol] 124 mg/dL High 70-100 [facility] Comment on above: Performed By: #### 8 5499 ####[facility] [place] [address], [facility] Glucose [Mass/Vol] 338 mg/dL High 70-100 [facility] Comment on above: Performed By: #### 8 5499 ####[facility] [place] [address], [facility] BASIC METABOLIC PANELon - Calcium [Mass/Vol] 8.2 mg/dL Low 8.6-10.3 [facility] Comment on above: Order Comment: No: D o not add to previous draw Performed By: #### 0 0071 ####[facility] [place] [address], [facility] Chloride [Moles/Vol] 100 mmol/L Normal 98-107 [facility] Comment on above: Order Comment: No: D o not add to previous draw Performed By: #### 0 0071 ####[facility] [place] [address], [facility] CO2 [Moles/Vol] 30 mmol/L Normal 21-31 [facility] Comment on above: Order Comment: No: D o not add to previous draw Performed By: #### 0 0071 ####[facility] [place] [address], [place] Creatinine [Mass/Vol] 1.16 mg/dL Normal 0.70-1.30 [facility] Comment on above: Order Comment: No: D o not add to previous draw Performed By: #### 0 0071 ####[facility] [place] [address], [place] GFR/1.73 sq M.predicted among blacks MDRD (S/P/Bld) [Vol rate/Area] mL/min/{1.73_m2} Normal >60 [facility] Comment on above: Order Comment: No: D o not add to previous draw Performed By: #### 0 0071 ####[facility] [place] [address], [facility] GFR/1.73 sq M.predicted among non-blacks MDRD (S/P/Bld) [Vol rate/Area] mL/min/{1.73_m2} Normal >60 [facility] Comment on above: Order Comment: No: D o not add to previous draw Performed By: #### 0 0071 ####[facility] [place] [address], [facility] Glucose [Mass/Vol] 190 mg/dL High 70-100 [facility] Comment on above: Order Comment: No: D o not add to previous draw Performed By: #### 0 0071 ####[address] [place] [address], [facility] Potassium [Moles/Vol] 4.0 mmol/L Normal 3.5-5.1 [facility] Comment on above: Order Comment: No: D o not add to previous draw Performed By: #### 0 0071 ####[address] [address], [facility] Sodium [Moles/Vol] 137 mmol/L Normal 136-145 [facility] Comment on above: Order Comment: No: D o not add to previous draw Performed By: #### 0 0071 ####[address] [place] [address], [facility] Urea nitrogen [Mass/Vol] 42 mg/dL High 7-25 [facility] Comment on above: Order Comment: No: D o not add to previous draw Performed By: #### 0 0071 ####[address] [address], [facility] POC GLUCOSE LABon 10-22-2021 Glucose [Mass/Vol] 153 mg/dL High 70-100 [facility] Comment on above: Performed By: #### 8 5499 ####[address] [facility] [place] [address], [place] Glucose [Mass/Vol] 135 mg/dL High 70-100 [facility] Comment on above: Performed By: #### 8 5499 ####[facility] [place] [address], [place] Glucose [Mass/Vol] 266 mg/dL High 70-100 [facility] Comment on above: Performed By: #### 8 5499 ####[facility] [place] [address], [place] Glucose [Mass/Vol] 201 mg/dL High 70-100 [facility] Comment on above: Performed By: #### 8 5499 ####[facility] [place] [address], [place] BASIC METABOLIC PANELon 06-05 13-2021 Calcium [Mass/Vol] 9.4 mg/dL Normal 8.6-10.3 [facility] Comment on above: Performed By: #### 0 ####[facility] [place] [address], [place] Chloride [Moles/Vol] 98 mmol/L Normal 98-107 [facility] Comment on above: Performed By: #### 0 ####[facility] [place] [address], [place] CO2 [Moles/Vol] 32 mmol/L High 21-31 [facility] Comment on above: Performed By: #### 0 ####[facility] [place] [address], [place] Creatinine [Mass/Vol] 1.04 mg/dL Normal 0.70-1.30 [facility] Comment on above: Performed By: #### 0 ####[facility] [place] [address], [place] GFR/1.73 sq M.predicted among blacks MDRD (S/P/Bld) [Vol rate/Area] mL/min/{1.73_m2} Normal >60 [facility] Comment on above: Performed By: #### 0 ####[facility] [place] [address], [facility] GFR/1.73 sq M.predicted among non-blacks MDRD (S/P/Bld) [Vol rate/Area] mL/min/{1.73_m2} Normal >60 [facility] Comment on above: Performed By: #### 0 ####[facility] [place] [address], [place] Glucose [Mass/Vol] 210 mg/dL High 70-100 [facility] Comment on above: Performed By: #### 0 ####[facility] [place] [address], [place] Potassium [Moles/Vol] 4.1 mmol/L Normal 3.5-5.1 [facility] Comment on above: Performed By: #### 0 ####[facility] [place] [address], [place] Sodium [Moles/Vol] 139 mmol/L Normal 136-145 [facility] Comment on above: Performed By: #### 0 ####[facility] [place] [address], [place] Urea nitrogen [Mass/Vol] 37 mg/dL High 7-25 [facility] Comment on above: Performed By: #### 0 ####[facility] [place] [address], [place] POC GLUCOSE LABon 10-21-2021 Glucose [Mass/Vol] 230 mg/dL High 70-100 [facility] Comment on above: Performed By: #### 8 5499 ####[facility] [place] [address], [place] Glucose [Mass/Vol] 229 mg/dL High 70-100 [facility] Comment on above: Performed By: #### 8 5499 ####[facility] [place] [address], [place] Glucose [Mass/Vol] 276 mg/dL High 70-100 [facility] Comment on above: Performed By: #### 8 5499 ####[facility] [place] [address], [place] Glucose [Mass/Vol] 171 mg/dL High 70-100 [facility] Comment on above: Performed By: #### 8 5499 ####[facility] [place] [address], [place] VANCOMYCIN TROUGHon 10-22-19 VANCOMYCIN TROU 14.7 mcg/mL Normal 5.0-20.0 [facility] Comment on above: Performed By: #### 0 5, 07219 ####[facility] [place] [address], [place] BASIC METABOLIC PANELon 10-09 Calcium [Mass/Vol] 8.9 mg/dL Normal 8.6-10.3 [facility] Comment on above: Order Comment: No: D o not add to previous draw Performed By: #### 0 0071 ####[facility] [place] [address], [place] Chloride [Moles/Vol] 99 mmol/L Normal 98-107 [facility] Comment on above: Order Comment: No: D o not add to previous draw Performed By: #### 0 0071 ####[facility] [place] [address], [place] CO2 [Moles/Vol] 31 mmol/L Normal 21-31 [facility] Comment on above: Order Comment: No: D o not add to previous draw Performed By: #### 0 0071 ####[facility] [place] [address], [facility] Creatinine [Mass/Vol] 0.94 mg/dL Normal 0.70-1.30 [facility] Comment on above: Order Comment: No: D o not add to previous draw Performed By: #### 0 0071 ####[facility] [place] [address], [place] GFR/1.73 sq M.predicted among blacks MDRD (S/P/Bld) [Vol rate/Area] mL/min/{1.73_m2} Normal >60 [facility] Comment on above: Order Comment: No: D o not add to previous draw Performed By: #### 0 0071 ####[facility] [place] [address], [place] GFR/1.73 sq M.predicted among non-blacks MDRD (S/P/Bld) [Vol rate/Area] mL/min/{1.73_m2} Normal >60 [facility] Comment on above: Order Comment: No: D o not add to previous draw Performed By: #### 0 0071 ####[facility] [place] [address], [place] Glucose [Mass/Vol] 110 mg/dL High 70-100 [facility] Comment on above: Order Comment: No: D o not add to previous draw Performed By: #### 0 0071 ####[facility] [place] [address], [place] Potassium [Moles/Vol] 4.1 mmol/L Normal 3.5-5.1 [facility] Comment on above: Order Comment: No: D o not add to previous draw Performed By: #### 0 0071 ####[facility] [place] [address], [place] Sodium [Moles/Vol] 137 mmol/L Normal 136-145 [facility] Comment on above: Order Comment: No: D o not add to previous draw Performed By: #### 0 0071 ####[facility] [place] [address], [facility] Urea nitrogen [Mass/Vol] 27 mg/dL High 7-25 [facility] Comment on above: Order Comment: No: D o not add to previous draw Performed By: #### 0 0071 ####[facility] [place] [address], [facility] POC GLUCOSE LABon 10-20-2021 Glucose [Mass/Vol] 205 mg/dL High 70-100 [facility] Comment on above: Performed By: #### 8 5499 ####[facility] [place] [address], [facility] Glucose [Mass/Vol] 186 mg/dL High 70-100 [facility] Comment on above: Performed By: #### 8 5499 ####[facility] [place] [address], [place] Glucose [Mass/Vol] 270 mg/dL High 70-100 [facility] Comment on above: Performed By: #### 8 5499 ####[facility] [place] [address], [facility] Glucose [Mass/Vol] 291 mg/dL High 70-100 [facility] Comment on above: Performed By: #### 8 5499 ####[facility] [place] [address], [facility] APTTon 10-19-2021 aPTT Coag (Bld) [Time] 31.0 s Normal 25.0-35.0 [facility] Comment on above: Order Comment: No: D [...] THIS PURPOSE. Performed By: #### 5 6101, 99114 ####[facility] [place] [address], [facility] BASIC METABOLIC PANELon 06- Calcium [Mass/Vol] 8.8 mg/dL Normal 8.6-10.3 [facility] Comment on above: Order Comment: No: D o not add to previous draw Performed By: #### 0 0071, 82054, 29966 ####[facility] [place] [address], [facility] Chloride [Moles/Vol] 104 mmol/L Normal 98-107 [facility] Comment on above: Order Comment: No: D o not add to previous draw Performed By: #### 0 0071, 41221, 49088 ####[facility] [facility] [place] [address], [facility] CO2 [Moles/Vol] 29 mmol/L Normal 21-31 [facility] Comment on above: Order Comment: No: D o not add to previous draw Performed By: #### 0 0071, 28523, 86761 ####[facility] [place] [address], [facility] Creatinine [Mass/Vol] 0.80 mg/dL Normal 0.70-1.30 [facility] Comment on above: Order Comment: No: D o not add to previous draw Performed By: #### 0 0071, 58169, 21935 ####[facility] [place] [address], [facility] GFR/1.73 sq M.predicted among blacks MDRD (S/P/Bld) [Vol rate/Area] mL/min/{1.73_m2} Normal >60 [facility] Comment on above: Order Comment: No: D o not add to previous draw Performed By: #### 0 0071, 75504, 65491 ####[facility] [place] [address], [facility] GFR/1.73 sq M.predicted among non-blacks MDRD (S/P/Bld) [Vol rate/Area] mL/min/{1.73_m2} Normal >60 [facility] Comment on above: Order Comment: No: D o not add to previous draw Performed By: #### 0 0071, 42036, 18689 ####[facility] [place] [address], [facility] Glucose [Mass/Vol] 118 mg/dL High 70-100 [facility] Comment on above: Order Comment: No: D o not add to previous draw Performed By: #### 0 0071, 28863, 63880 ####[facility] [place] [address], [facility] Potassium [Moles/Vol] 4.4 mmol/L Normal 3.5-5.1 [facility] Comment on above: Order Comment: No: D o not add to previous draw Performed By: #### 0 0071, 88377, 68532 ####[facility] [place] [address], [facility] Sodium [Moles/Vol] 138 mmol/L Normal 136-145 [facility] Comment on above: Order Comment: No: D o not add to previous draw Performed By: #### 0 0071, 21069, 64135 ####[facility] [place] [address], [facility] Urea nitrogen [Mass/Vol] 18 mg/dL Normal 7-25 [facility] Comment on above: Order Comment: No: D o not add to previous draw Performed By: #### 0 0071, 66880, 66647 ####[facility] CBC COMPLETE BLOOD COUNTon 0 10-19-2021 Erythrocyte distribution width (RBC) [Ratio] 14.6 % Normal 11.5-15.0 [facility] Comment on above: Order Comment: No: D o not add to previous draw Performed By: #### 5 0608 ####[facility] Hematocrit (Bld) [Volume fraction] 29.5 % Low 39.0-50.0 [facility] Comment on above: Order Comment: No: D o not add to previous draw Performed By: #### 5 0608 ####[address] Hemoglobin (Bld) [Mass/Vol] 9.4 g/dL Low 13.0-17.0 [facility] Comment on above: Order Comment: No: D o not add to previous draw Performed By: #### 5 0608 ####[facility] MCH (RBC) [Entitic mass] 27.5 pg Normal 27.0-33.0 [facility] Comment on above: Order Comment: No: D o not add to previous draw Performed By: #### 5 0608 ####[place] [address] MCHC (RBC) [Mass/Vol] 31.9 g/dL Low 32.0-35.0 [facility] Comment on above: Order Comment: No: D o not add to previous draw Performed By: #### 5 0608 ####[address] MCV (RBC) [Entitic vol] 86.3 fL Normal 82.0-98.0 [facility] Comment on above: Order Comment: No: D o not add to previous draw Performed By: #### 5 0608 ####[facility] [place] [address], [facility] Nucleated RBC/100 WBC (Bld) [Ratio] 0 % Normal 0-0 [facility] Comment on above: Order Comment: No: D o not add to previous draw Performed By: #### 5 0608 ####[facility] [place] [address], [facility] PLAT CNT 200 10*3/uL Normal 150-400 [facility] Comment on above: Order Comment: No: D o not add to previous draw Performed By: #### 5 0608 ####[address] [address], [facility] RBC (Bld) [#/Vol] 3.42 10*6/uL Low 4.20-5.70 [facility] Comment on above: Order Comment: No: D o not add to previous draw Performed By: #### 5 0608 ####[facility] [place] [address], [facility] WBC (Bld) [#/Vol] 6.23 10*3/uL Normal 4.00-10.60 [facility] Comment on above: Order Comment: No: D o not add to previous draw Performed By: #### 5 0608 ####[facility] [place] [address], [facility] MAGNESIUM BLOODon 10-19-2021 Magnesium [Mass/Vol] 1.7 mg/dL Low 1.9-2.7 [facility] Comment on above: Order Comment: No: D o not add to previous draw Performed By: #### 0 0071, 42912, 95554 ####[facility] [place] [address], [facility] PHOSPHORUS BLOODon Phosphate [Mass/Vol] 3.3 mg/dL Normal 2.5-5.0 [facility] Comment on above: Order Comment: No: D o not add to previous draw Performed By: #### 0 0071, 88307, 50550 ####[facility] [place] [address], [facility] POC GLUCOSE LABon 10-19-2021 Glucose [Mass/Vol] 170 mg/dL High 70-100 [facility] Comment on above: Performed By: #### 8 5499 ####[facility] [place] [address], [facility] Glucose [Mass/Vol] 349 mg/dL High 70-100 [facility] Comment on above: Performed By: #### 8 5499 ####[facility] [place] [address], [facility] Glucose [Mass/Vol] 216 mg/dL High 70-100 [facility] Comment on above: Performed By: #### 8 5499 ####[facility] [place] [address], [facility] Glucose [Mass/Vol] 126 mg/dL High 70-100 [facility] Comment on above: Performed By: #### 8 5499 ####[facility] [place] [address], [facility] PROTHROMBIN TIMEon 2 INR Coag (PPP) [Relative time] 1.10 {INR} Normal 0.91-1.16 [facility] Comment on above: Order Comment: No: D [...] OF ACTION, CLINICALEFFECTIVENESS, AND OPTIMAL THERAPEUTIC RANGE. [id number]. Performed By: #### 5 6101, 22931 ####[facility] PT Coag (PPP) [Time] 14.2 s Normal 12.3-14.8 [facility] Comment on above: Order Comment: No: D o not add to previous draw Result Comment: ALL RESULTS MUST BE INTERPRETED WITH RESPECT TO BLOOD DRAWING ARTIFACTOR DILUTION ERROR OF ANTICOAGULANT AT THE TIME OF SAMPLING. Performed By: #### 5 6101, 33537 ####[facility] APTTon 10-18-2021 aPTT Coag (Bld) [Time] 29.9 s Normal 25.0-35.0 [facility] Comment on above: Order Comment: No: D [...] THIS PURPOSE. Performed By: #### 5 6101, 90015 ####[facility] BASIC METABOLIC PANELon 06- Calcium [Mass/Vol] 8.4 mg/dL Low 8.6-10.3 [facility] Comment on above: Order Comment: No: D o not add to previous draw Performed By: #### 3 5200, 73890, 28420, 32752, 52306 ####[facility] [place] [address], [facility] Chloride [Moles/Vol] 108 mmol/L High 98-107 [facility] Comment on above: Order Comment: No: D o not add to previous draw Performed By: #### 3 5200, 41161, 40182, 75470, 05626 ####[facility] [place] [address], [facility] CO2 [Moles/Vol] 26 mmol/L Normal 21-31 [facility] Comment on above: Order Comment: No: D o not add to previous draw Performed By: #### 3 5200, 99907, 31000, 39615, 24076 ####[facility] [place] [address], [facility] Creatinine [Mass/Vol] 0.70 mg/dL Normal 0.70-1.30 [facility] Comment on above: Order Comment: No: D o not add to previous draw Performed By: #### 3 5200, 37512, 26487, 50691, 47632 ####[facility] [place] [address], [facility] GFR/1.73 sq M.predicted among blacks MDRD (S/P/Bld) [Vol rate/Area] mL/min/{1.73_m2} Normal >60 [facility] Comment on above: Order Comment: No: D o not add to previous draw Performed By: #### 3 5200, 14362, 69021, 26791, 63333 ####[facility] [place] [address], [facility] GFR/1.73 sq M.predicted among non-blacks MDRD (S/P/Bld) [Vol rate/Area] mL/min/{1.73_m2} Normal >60 [facility] Comment on above: Order Comment: No: D o not add to previous draw Performed By: #### 3 5200, 97111, 50329, 37460, 90766 ####[facility] [place] [address], [facility] Glucose [Mass/Vol] 114 mg/dL High 70-100 [facility] Comment on above: Order Comment: No: D o not add to previous draw Performed By: #### 3 5200, 14124, 27910, 80510, 31580 ####[facility] [place] [address], [facility] Potassium [Moles/Vol] 4.4 mmol/L Normal 3.5-5.1 [facility] Comment on above: Order Comment: No: D o not add to previous draw Performed By: #### 3 5200, 58814, 44146, 17558, 78872 ####[facility] [place] [address], [facility] Sodium [Moles/Vol] 139 mmol/L Normal 136-145 [facility] Comment on above: Order Comment: No: D o not add to previous draw Performed By: #### 3 5200, 42942, 05873, 80140, 37839 ####[facility] [place] [address], [facility] Urea nitrogen [Mass/Vol] 17 mg/dL Normal 7-25 [facility] Comment on above: Order Comment: No: D o not add to previous draw Performed By: #### 3 5200, 05991, 37852, 83306, 75368 ####[facility] BNP (B-TYPE NATRIURETIC PEPT CHANNING)on 10-18-2021 Natriuretic peptide B (Bld) [Mass/Vol] 124 pg/mL High 0-100 [facility] Comment on above: Order Comment: No: D o not add to previous draw Result Comment: Give n the appropriate clinical setting a BNP result of >100 pg/mLindicates congestive heart failure. Performed By: #### 8 5123 ####[facility] CBC W/DIFFon 10-18-2021 ABS IMM GRANS 0.0 10*3/uL Normal 0.0-0.2 [facility] Comment on above: Order Comment: Marie silva notified mike Donnelly trying to get pic to come Performed By: #### 5 0103 ####[facility] ABS NEUTROPHILS 3.4 10*3/uL Normal 1.6-7.6 [facility] Comment on above: Order Comment: Marie silva notified rn Cony trying to get pic to come Performed By: #### 5 0103 ####[facility] Basophils (Bld) [#/Vol] 0.0 10*3/uL Normal 0.0-0.2 [facility] Comment on above: Order Comment: Marie silva notified rn Cony trying to get pic to come Performed By: #### 5 0103 ####[facility] Basophils/100 WBC (Bld) 0.7 % Normal 0.0-1.0 [facility] Comment on above: Order Comment: Marie silva notified mkie Donnelly trying to get pic to come Performed By: #### 5 0103 ####[facility] Eosinophils (Bld) [#/Vol] 0.1 10*3/uL Normal 0.0-0.5 [facility] Comment on above: Order Comment: Marie silva notified mike Donnelly trying to get pic to come Performed By: #### 5 0103 ####[facility] [place] [address], [facility] Eosinophils/100 WBC (Bld) 1.5 % Normal 0.0-6.0 [facility] Comment on above: Order Comment: Marie silva notified rn Cony trying to get pic to come Performed By: #### 5 0103 ####[facility] Erythrocyte distribution width (RBC) [Ratio] 14.5 % Normal 11.5-15.0 [facility] Comment on above: Order Comment: Marie silva notified rn Cony trying to get pic to come Performed By: #### 5 0103 ####[facility] Hematocrit (Bld) [Volume fraction] 27.8 % Low 39.0-50.0 [facility] Comment on above: Order Comment: Marie silva notified mike Donnelly trying to get pic to come Performed By: #### 5 0103 ####[place] [address] [facility] Hemoglobin (Bld) [Mass/Vol] 9.0 g/dL Low 13.0-17.0 [facility] Comment on above: Order Comment: Marie silva notified mike [place] trying to get pic to come Performed By: #### 5 0103 ####[facility]3000 [facility] IMMATURE GRANS 0.4 % Normal 0.0-1.0 [facility] Comment on above: Order Comment: Marie silva notified mike [place] trying to get pic to come Performed By: #### 5 0103 ####[facility]3000 [facility] [address], [facility] Lymphocytes (Bld) [#/Vol] 1.6 10*3/uL Normal 1.2-4.0 [facility] Comment on above: Order Comment: Marie silva notified mike Donnelly trying to get pic to come Performed By: #### 5 0103 ####[facility] Lymphocytes/100 WBC (Bld) 28.8 % Normal 20.0-45.0 [facility] Comment on above: Order Comment: Marie silva notified rn Cony trying to get pic to come Performed By: #### 5 0103 ####[facility] MCH (RBC) [Entitic mass] 27.5 pg Normal 27.0-33.0 [facility] Comment on above: Order Comment: Marie silva notified rn Cony trying to get pic to come Performed By: #### 5 0103 ####[address] MCHC (RBC) [Mass/Vol] 32.4 g/dL Normal 32.0-35.0 [facility] Comment on above: Order Comment: Marie silva notified rn Cony trying to get pic to come Performed By: #### 5 0103 ####[facility] MCV (RBC) [Entitic vol] 85.0 fL Normal 82.0-98.0 [facility] Comment on above: Order Comment: Marie silva notified mike Donnelly trying to get pic to come Performed By: #### 5 3 ####[address] Monocytes (Bld) [#/Vol] 0.4 10*3/uL Normal 0.1-1.0 [facility] Comment on above: Order Comment: Marie silva notified rn Cony trying to get pic to come Performed By: #### 5 0103 ####[facility] MONOS 7.1 % Normal 5.0-12.0 [facility] Comment on above: Order Comment: Marie silva notified rn Cony trying to get pic to come Performed By: #### 5 0103 ####[facility] [facility] [place] [address], [facility] Neutrophils/100 WBC (Bld) 61.5 % Normal 40.0-72.0 [facility] Comment on above: Order Comment: Marie silva notified mike Donnelly trying to get pic to come Performed By: #### 5 0103 ####[facility] [facility] [place] [address], [facility] Nucleated RBC/100 WBC (Bld) [Ratio] 0 % Normal 0-0 [facility] Comment on above: Order Comment: Marie silva notified mike Donnelly trying to get pic to come Performed By: #### 5 0103 ####[facility] [facility] [address], [facility] PLAT CNT 181 10*3/uL Normal 150-400 [facility] Comment on above: Order Comment: Marie silva notified mike Donnelly trying to get pic to come Performed By: #### 5 0103 ####[facility] [facility] [place] [address], [facility] RBC (Bld) [#/Vol] 3.27 10*6/uL Low 4.20-5.70 [facility] Comment on above: Order Comment: Marie silva notified mike Donnelly trying to get pic to come Performed By: #### 5 0103 ####[facility] [facility] [place] [address], [facility] WBC (Bld) [#/Vol] 5.48 10*3/uL Normal 4.00-10.60 [facility] Comment on above: Order Comment: Marie silva notified mike Donnelly trying to get pic to come Performed By: #### 5 0103 ####[facility] [id number], [facility] LIVER BATTERYon 10-18-2021 Albumin [Mass/Vol] 3.3 g/dL Low 3.5-5.7 [facility] Comment on above: Order Comment: No: D o not add to previous draw Performed By: #### 3 5200, 85133, 09508, 39175, 71712 ####[facility] [place] [address], [facility] ALKALINE PHOSPH 65 IU/L Normal 34-104 [facility] Comment on above: Order Comment: No: D o not add to previous draw Performed By: #### 3 5200, 84369, 95672, 26735, 12696 ####[facility] [place] [address], [facility] ALT [Catalytic activity/Vol] 14 U/L Normal 7-52 [facility] Comment on above: Order Comment: No: D o not add to previous draw Performed By: #### 3 5200, 68242, 87246, 12970, 45725 ####[facility] [facility] [address], [facility] AST [Catalytic activity/Vol] 17 U/L Normal 13-39 [facility] Comment on above: Order Comment: No: D o not add to previous draw Performed By: #### 3 5200, 06582, 06091, 76328, 17252 ####[facility] [facility] [place] [address], [place] Bilirubin [Mass/Vol] 0.3 mg/dL Normal 0.3-1.0 [facility] Comment on above: Order Comment: No: D o not add to previous draw Performed By: #### 3 5200, 80245, 53958, 41005, 87973 ####[facility] [place] [address], [place] Bilirubin.direct [Mass/Vol] 0.1 mg/dL Normal 0.0-0.2 [facility] Comment on above: Order Comment: No: D o not add to previous draw Performed By: #### 3 5200, 62522, 77390, 57345, 83241 ####[facility] [place] [address], [facility] Protein [Mass/Vol] 6.1 g/dL Normal 6.0-8.3 [facility] Comment on above: Order Comment: No: D o not add to previous draw Performed By: #### 3 5200, 03994, 96956, 15896, 96285 ####[facility] [place] [address], [facility] MAGNESIUM BLOODon 10-18-2021 Magnesium [Mass/Vol] 1.8 mg/dL Low 1.9-2.7 [facility] Comment on above: Order Comment: No: D o not add to previous draw Performed By: #### 3 5200, 34971, 66484, 56062, 12780 ####[facility] [facility] [place] [address], [facility] PHOSPHORUS BLOODon 2 Phosphate [Mass/Vol] 2.8 mg/dL Normal 2.5-5.0 [facility] Comment on above: Order Comment: No: D o not add to previous draw Performed By: #### 3 5200, 73705, 88820, 59702, 78957 ####[facility] [place] [address], [facility] POC GLUCOSE LABon 10-18-2021 Glucose [Mass/Vol] 127 mg/dL High 70-100 [facility] Comment on above: Performed By: #### 8 5499 ####[facility] [facility] [place] [address], [facility] PORTABLE CHEST 1 VIEWon 10-09 PORTABLE CHEST 1 VIEW Normal [facility] Comment on above: Order Comment: Atele ctasis PROTHROMBIN TIMEon 2 INR Coag (PPP) [Relative time] 1.12 {INR} Normal 0.91-1.16 [facility] Comment on above: Order Comment: No: D [...] OF ACTION, CLINICALEFFECTIVENESS, AND OPTIMAL THERAPEUTIC RANGE. [id number]. Performed By: #### 5 6101, 09150 ####[facility]3000 [place] [address], [facility] PT Coag (PPP) [Time] 14.4 s Normal 12.3-14.8 [facility] Comment on above: Order Comment: No: D o not add to previous draw Result Comment: ALL RESULTS MUST BE INTERPRETED WITH RESPECT TO BLOOD DRAWING ARTIFACTOR DILUTION ERROR OF ANTICOAGULANT AT THE TIME OF SAMPLING. Performed By: #### 5 6101, 28368 ####[facility] [place] [address], [facility] TROPONIN-Ion 10-18-2021 Troponin I.cardiac [Mass/Vol] 0.00 ng/mL Normal 0.00-0.04 [facility] Comment on above: Order Comment: No: D o not add to previous draw Result Comment: REFE RENCE RANGES: 0.00 - 0.04 ng/ml NORMAL 0.05 - 0.50 ng/ml INDETERMINATE > 0.50 ng/ml CONSISTENT WITH AN M.I. Performed By: #### 3 5200, 73225, 34986, 81601, 23108 ####[facility] [place] [address], [facility] CALCIUM IONIZEDon 10-01-2021 Calcium, Ionized, Serum 5.6 mg/dL Normal 4.5-5.6 [facility] Comment on above: Performed By: #### C BC #### [facility] [address] [place] [address] Dr. Terrence Paige MAGNESIUMon 09-30-2021 Magnesium [Mass/Vol] 1.9 mg/dL Normal 1.8-2.4 [facility] Comment on above: Performed By: #### C BC #### [facility] [address] [place] [address] Dr. Terrence Paige PROF CHEM 8 (BAS METB)on Anion gap [Moles/Vol] 9.0 mmol/L Normal [facility] Comment on above: Performed By: #### C BC #### [facility] [address] [place] [address] Dr. Terrence Paige Calcium [Mass/Vol] 9.0 mg/dL Normal 8.5-10.1 [facility] Comment on above: Performed By: #### C BC #### [facility] [address] [place] [address] Dr. Terrence Paige Chloride [Moles/Vol] 103 mmol/L Normal 98-107 [facility] Comment on above: Performed By: #### C BC #### [facility] [address] [place] [address] Dr. Terrence Paige CO2 [Moles/Vol] 31.3 mmol/L Normal 21.0-32.0 [facility] Comment on above: Performed By: #### C BC #### [facility] [address] [place] [address] Dr. Terrence Paige Creatinine [Mass/Vol] 0.80 mg/dL Normal 0.70-1.30 [facility] Comment on above: Performed By: #### C BC #### [facility] [address] [place] [address] Dr. Terrence Paige EGFR-AF KU[place]I >60 Normal >=60 [facility] Comment on above: Performed By: #### C BC #### [facility] [address] [place] [address] [address] Terrence Paige EGFR-NON AF [place] >60 Normal >=60 [facility] Comment on above: Performed By: #### C BC #### [facility] [address] [place] [address] [address] Terrence Paige Glucose [Mass/Vol] 168 mg/dL Critically high 74-106 T [facility] Comment on above: Performed By: #### C BC #### [facility] [address] [place] [address] [address] Terrence Paige Potassium [Moles/Vol] 4.3 mmol/L Normal 3.5-5.1 [facility] Comment on above: Performed By: #### C BC #### [facility] [address] [place] [address] [address] Terrence Paige Sodium [Moles/Vol] 139 mmol/L Normal 136-145 [facility] Comment on above: Performed By: #### C BC #### [facility] [address] [place] [address] [address] Terrence Paige Urea nitrogen [Mass/Vol] 25.0 mg/dL Critically high 7.0-18.0 [facility] Comment on above: Performed By: #### C BC #### [facility] [address] [place] [address] [address] Terrence Paige Urea nitrogen/Creatinine [Mass ratio] 31.2 mg/mg Normal [facility] Comment on above: Performed By: #### C BC #### [facility] [address] [place] [address] [address] Terrence Paige HIPS BILATERAL 2 VWS WITH PE LVISon 09-13-2021 HIPS BILATERAL 2 VWS WITH PELVIS Normal [facility] Comment on above: Order Comment: Evalu ate CBC AUTO DIFFon 09-06-2021 BASO # 0.1 103/ul Normal 0.0-0.1 [facility] Comment on above: Performed By: #### C BC #### [facility] [address] [place] [address] [address] Terrence Paige Basophils/100 WBC (Bld) 0.8 % Normal 0.2-2.0 [facility] Comment on above: Performed By: #### C BC #### [facility] [address] [place] [address] [address] Terrence Paige EO # 0.1 103/ul Normal 0.0-0.7 [facility] Comment on above: Performed By: #### C BC #### [facility] [address] [place] [address] Dr. Terrence Paige Eosinophils/100 WBC (Bld) 1.9 % Normal 0.9-7.0 [facility] Comment on above: Performed By: #### C BC #### [facility] [address] [place] [address] Dr. Terrence Paige Erythrocyte distribution width (RBC) [Ratio] 13.9 % Normal 11.0-15.0 [facility] Comment on above: Performed By: #### C BC #### [facility] [address] [place] [address] Dr. Terrence Paige Hematocrit (Bld) [Volume fraction] 30.8 % Critically low 42.0-54.0 [facility] Comment on above: Performed By: #### C BC #### [facility] [address] [place] [address] Dr. Terrence Paige Hemoglobin (Bld) [Mass/Vol] 9.7 g/dL Critically low 14.0-18.0 [facility] Comment on above: Performed By: #### C BC #### [facility] [address] [place] [address] Dr. Terrence Paige IG # 0.02 10e3/ul Normal 0.00-0.03 [facility] Comment on above: Performed By: #### C BC #### [facility] [address] [place] [address] Dr. Terrence Paige IG % 0.3 % Normal 0.0-0.5 [facility] Comment on above: Performed By: #### C BC #### [facility] [address] [place] [address] Dr. Terrence Paige LYMPH # 1.9 103/ul Normal 1.2-3.8 [facility] Comment on above: Performed By: #### C BC #### [facility] [address] [place] [address] Dr. Terrence Paige Lymphocytes/100 WBC (Bld) 29.6 % Normal 20.5-60.0 [facility] Comment on above: Performed By: #### C BC #### [facility] [address] [place] [address] Dr. Terrence Paige MANUAL DIFF REQ NO Normal [facility] Comment on above: Performed By: #### C BC #### [facility] [address] [place] [address] Dr. Terrence Paige MCH (RBC) [Entitic mass] 28.0 pg Normal 25.9-34.0 [facility] Comment on above: Performed By: #### C BC #### [facility] [address] [place] [address] Dr. Terrence Paige MCHC (RBC) [Mass/Vol] 31.5 g/dL Normal 29.9-35.2 [facility] Comment on above: Performed By: #### C BC #### [facility] [address] [place] [address] Dr. Terrence Paige MCV (RBC) [Entitic vol] 89.0 fL Normal 80.0-94.0 [facility] Comment on above: Performed By: #### C BC #### [facility] [address] [place] [address] Dr. Terrence Paige MONO # 0.5 103/ul Normal 0.3-0.8 [facility] Comment on above: Performed By: #### C BC #### [facility] [address] [place] [address] Dr. Terrence Paige Monocytes/100 WBC (Bld) 7.3 % Normal 1.7-12.0 [facility] Comment on above: Performed By: #### C BC #### [facility] [address] [place] [address] Dr. Terrence Paige NEUT # 3.8 103/ul Normal 1.4-6.5 [facility] Comment on above: Performed By: #### C BC #### [facility] [address] [place] [address] Dr. Terrence Paige Neutrophils/100 WBC (Bld) 60.1 % Normal 43.0-75.0 [facility] Comment on above: Performed By: #### C BC #### [facility] [address] [place] [address] Dr. Terrence Paige Platelet mean volume (Bld) [Entitic vol] 10.2 fL Normal 9.5-13.5 [facility] Comment on above: Performed By: #### C BC #### [facility] [address] [place] [address] Dr. Terrence Paige PLT 266 103/ul Normal 150-450 [facility] Comment on above: Performed By: #### C BC #### [facility] [address] [place] [address] Dr. Terrence Paige RBC 3.46 106/ul Critically low 4.70-6.10 [facility] Comment on above: Performed By: #### C BC #### [facility] [address] [place] [address] Dr. Terrence Paige WBC 6.3 103/ul Normal 4.0-11.0 [facility] Comment on above: Performed By: #### C BC #### [facility] [address] [place] [address] Dr. Terrence Paige MAGNESIUMon 09-06-2021 Magnesium [Mass/Vol] 2.1 mg/dL Normal 1.8-2.4 [facility] Comment on above: Performed By: #### M Radha BMP #### [facility] [address] [place] [address] Dr. Terrence Paige PROF CHEM 8 (BAS METB)on Anion gap [Moles/Vol] 10.4 mmol/L Normal [facility] Comment on above: Performed By: #### M Radha, BMP #### [facility] [address] [place] [address] Dr. Terrence Paige Calcium [Mass/Vol] 8.9 mg/dL Normal 8.5-10.1 [facility] Comment on above: Performed By: #### M G, BMP #### [facility] [address] [place] [address] Dr. Terrence Paige Chloride [Moles/Vol] 100 mmol/L Normal 98-107 [facility] Comment on above: Performed By: #### M G, BMP #### [facility] [address] [place] [address] Dr. Terrence Paige CO2 [Moles/Vol] 29.3 mmol/L Normal 21.0-32.0 [facility] Comment on above: Performed By: #### M G, BMP #### [facility] [address] [place] [address] Dr. Terrence Paige Creatinine [Mass/Vol] 0.93 mg/dL Normal 0.70-1.30 [facility] Comment on above: Performed By: #### Joshua G, BMP #### [facility] [address] [place] [address] Dr. Terrence Paige EGFR-AF [place] >60 Normal >=60 [facility] Comment on above: Performed By: #### M G, BMP #### [facility] [address] [place] [address] Dr. Terrence aPige EGFR-NON AF [place] >60 Normal >=60 [facility] Comment on above: Performed By: #### Joshua G, BMP #### [facility] [address] [place] [address] Dr. Terrence Paige Glucose [Mass/Vol] 149 mg/dL Critically high 74-106 T [facility] Comment on above: Performed By: #### M G, BMP #### [facility] [address] [place] [address] Dr. Terrence Paige Potassium [Moles/Vol] 4.7 mmol/L Normal 3.5-5.1 [facility] Comment on above: Performed By: #### M G, BMP #### [facility] [address] [place] [address] Dr. Terrence Paige Sodium [Moles/Vol] 135 mmol/L Critically low 136-145 Th e [facility] Comment on above: Performed By: #### Joshua Garcia, BMP #### [facility] [address] [place] [address] [address] Terrence Paige Urea nitrogen [Mass/Vol] 21.0 mg/dL Critically high 7.0-18.0 [facility] Comment on above: Performed By: #### Joshua Garcia, BMP #### [facility] [address] [place] [address] [address] Terrence Paige Urea nitrogen/Creatinine [Mass ratio] 22.6 mg/mg Normal [facility] Comment on above: Performed By: #### Joshua Garcia, BMP #### [facility] [address] [place] [address] Dr. Terrence Paige BASIC METABOLIC PANELon 04-2 Calcium [Mass/Vol] 8.7 mg/dL Normal 8.6-10.3 [facility] Comment on above: Order Comment: No: D o not add to previous draw Performed By: #### 0 0071 ####[facility] [place] [address], [facility] Chloride [Moles/Vol] 100 mmol/L Normal 98-107 [facility] Comment on above: Order Comment: No: D o not add to previous draw Performed By: #### 0 0071 ####[facility] [facility] [place] [address], [place] CO2 [Moles/Vol] 29 mmol/L Normal 21-31 [facility] Comment on above: Order Comment: No: D o not add to previous draw Performed By: #### 0 0071 ####[facility] [id number], [facility] Creatinine [Mass/Vol] 1.20 mg/dL Normal 0.70-1.30 [facility] Comment on above: Order Comment: No: D o not add to previous draw Performed By: #### 0 0071 ####[facility] [place] [address], [place] GFR/1.73 sq M.predicted among blacks MDRD (S/P/Bld) [Vol rate/Area] mL/min/{1.73_m2} Normal >60 [facility] Comment on above: Order Comment: No: D o not add to previous draw Performed By: #### 0 0071 ####[facility] [place] [address], [place] GFR/1.73 sq M.predicted among non-blacks MDRD (S/P/Bld) [Vol rate/Area] mL/min/{1.73_m2} Normal >60 [facility] Comment on above: Order Comment: No: D o not add to previous draw Performed By: #### 0 0071 ####[facility] [place] [address], [place] Glucose [Mass/Vol] 280 mg/dL High 70-100 [facility] Comment on above: Order Comment: No: D o not add to previous draw Performed By: #### 0 0071 ####[facility] [place] [address], [place] Potassium [Moles/Vol] 4.9 mmol/L Normal 3.5-5.1 [facility] Comment on above: Order Comment: No: D o not add to previous draw Performed By: #### 0 0071 ####[facility] [place] [address], [place] Sodium [Moles/Vol] 135 mmol/L Low 136-145 [facility] Comment on above: Order Comment: No: D o not add to previous draw Performed By: #### 0 0071 ####[facility] [place] [address], [place] Urea nitrogen [Mass/Vol] 51 mg/dL High 7-25 [facility] Comment on above: Order Comment: No: D o not add to previous draw Performed By: #### 0 0071 ####[facility] CBC COMPLETE BLOOD COUNTon 0 08-29-2021 Erythrocyte distribution width (RBC) [Ratio] 13.8 % Normal 11.5-15.0 [facility] Comment on above: Order Comment: No: D o not add to previous draw Performed By: #### 5 0608 ####[facility] Hematocrit (Bld) [Volume fraction] 29.8 % Low 39.0-50.0 [facility] Comment on above: Order Comment: No: D o not add to previous draw Performed By: #### 5 0608 ####[place] [address] [address] Hemoglobin (Bld) [Mass/Vol] 9.3 g/dL Low 13.0-17.0 [facility] Comment on above: Order Comment: No: D o not add to previous draw Performed By: #### 5 0608 ####[place] [address] [address] MCH (RBC) [Entitic mass] 27.6 pg Normal 27.0-33.0 [facility] Comment on above: Order Comment: No: D o not add to previous draw Performed By: #### 5 0608 ####[facility] MCHC (RBC) [Mass/Vol] 31.2 g/dL Low 32.0-35.0 [facility] Comment on above: Order Comment: No: D o not add to previous draw Performed By: #### 5 0608 ####[address] MCV (RBC) [Entitic vol] 88.4 fL Normal 82.0-98.0 [facility] Comment on above: Order Comment: No: D o not add to previous draw Performed By: #### 5 0608 ####[facility] [place] [address], [facility] Nucleated RBC/100 WBC (Bld) [Ratio] 0 % Normal 0-0 [facility] Comment on above: Order Comment: No: D o not add to previous draw Performed By: #### 5 0608 ####[facility] [facility] [place] [address], [place] PLAT CNT 249 10*3/uL Normal 150-400 [facility] Comment on above: Order Comment: No: D o not add to previous draw Performed By: #### 5 0608 ####[facility] [place] [address], [facility] RBC (Bld) [#/Vol] 3.37 10*6/uL Low 4.20-5.70 [facility] Comment on above: Order Comment: No: D o not add to previous draw Performed By: #### 5 0608 ####[facility] [place] [address], [facility] WBC (Bld) [#/Vol] 7.23 10*3/uL Normal 4.00-10.60 [facility] Comment on above: Order Comment: No: D o not add to previous draw Performed By: #### 5 0608 ####[facility] [place] [address], [facility] POC GLUCOSE LABon 08-29-2021 Glucose [Mass/Vol] 274 mg/dL High 70-100 [facility] Comment on above: Performed By: #### 8 5499 ####[facility] [facility] [place] [address], [place] Glucose [Mass/Vol] 379 mg/dL High 70-100 [facility] Comment on above: Performed By: #### 8 5499 ####[facility] [place] [address], [facility] ARTERIAL BLOOD GAS W/COOXon 08-28-2021 BASE EXCESS 6 mmol/L High -2-3 [facility] Comment on above: Performed By: #### 4 0055 ####[facility] [place] [address], [facility] COHB 0.8 % Normal 0.0-1.5 [facility] Comment on above: Performed By: #### 4 0055 ####[facility] [place] [address], [facility] DELIVERY SYSTEMS NASAL CANNULA Normal [facility] Comment on above: Performed By: #### 4 0055 ####[facility] [place] [address], [facility] HCO3 (Bld) [Moles/Vol] 31 mmol/L Critically high 21-28 [facility] Comment on above: Performed By: #### 4 0055 ####[facility] [place] [address], [facility] LPM 2.0 LPM Normal [facility] Comment on above: Performed By: #### 4 0055 ####[facility] [place] [address], [facility] METHB 1.0 % Normal 0.0-1.5 [facility] Comment on above: Performed By: #### 4 0055 ####[facility] [place] [address], [facility] Oxygen (Bld) [Partial pressure] 108 mm[Hg] Normal 83-108 [facility] Comment on above: Performed By: #### 4 0055 ####[facility] [place] [address], [facility] Oxygen saturation in Blood 95.6 % Normal 94.0-97.0 [facility] Comment on above: Performed By: #### 4 0055 ####[facility] [place] [address], [facility] PCO2 45 mmHg Normal 35-45 [facility] Comment on above: Performed By: #### 4 0055 ####[facility] [place] [address], [facility] pH (Bld) 7.45 [pH] Normal 7.35-7.45 [facility] Comment on above: Performed By: #### 4 0055 ####[facility] [place] [address], [facility] THB 9.6 g/dL Low 12.0-16.3 [facility] Comment on above: Performed By: #### 4 0055 ####[facility] BASIC METABOLIC PANELon 04-2 -2021 Calcium [Mass/Vol] 8.7 mg/dL Normal 8.6-10.3 [facility] Comment on above: Order Comment: No: D o not add to previous draw Performed By: #### 0 0071 ####[facility] [place] [address], [facility] Chloride [Moles/Vol] 98 mmol/L Normal 98-107 [facility] Comment on above: Order Comment: No: D o not add to previous draw Performed By: #### 0 0071 ####[facility] [place] [address], [facility] CO2 [Moles/Vol] 28 mmol/L Normal 21-31 [facility] Comment on above: Order Comment: No: D o not add to previous draw Performed By: #### 0 0071 ####[facility] [place] [address], [facility] Creatinine [Mass/Vol] 1.37 mg/dL High 0.70-1.30 [facility] Comment on above: Order Comment: No: D o not add to previous draw Performed By: #### 0 0071 ####[facility] [place] [address], [facility] eGFR- non- 53 ml/min/1.73sq m Abnormal >60 [facility] Comment on above: Order Comment: No: D o not add to previous draw Performed By: #### 0 0071 ####[facility] [place] [address], [facility] GFR/1.73 sq M.predicted among blacks MDRD (S/P/Bld) [Vol rate/Area] mL/min/{1.73_m2} Normal >60 [facility] Comment on above: Order Comment: No: D o not add to previous draw Performed By: #### 0 0071 ####[facility] [place] [address], [facility] Glucose [Mass/Vol] 142 mg/dL High 70-100 [facility] Comment on above: Order Comment: No: D o not add to previous draw Performed By: #### 0 0071 ####[facility] [place] [address], [facility] Potassium [Moles/Vol] 4.4 mmol/L Normal 3.5-5.1 [facility] Comment on above: Order Comment: No: D o not add to previous draw Performed By: #### 0 0071 ####[facility] [place] [address], [place] Sodium [Moles/Vol] 134 mmol/L Low 136-145 [facility] Comment on above: Order Comment: No: D o not add to previous draw Performed By: #### 0 0071 ####[facility] [place] [address], [place] Urea nitrogen [Mass/Vol] 52 mg/dL High 7-25 [facility] Comment on above: Order Comment: No: D o not add to previous draw Performed By: #### 0 0071 ####[facility] [place] [address], [facility] Calcium [Mass/Vol] 9.6 mg/dL Normal 8.6-10.3 [facility] Comment on above: Order Comment: No: D o not add to previous draw Performed By: #### 4 1000, , 31730 ####[facility] [place] [address], [place] Chloride [Moles/Vol] 97 mmol/L Low 98-107 [facility] Comment on above: Order Comment: No: D o not add to previous draw Performed By: #### 4 1000, , 72542 ####[facility] [place] [address], [place] CO2 [Moles/Vol] 30 mmol/L Normal 21-31 [facility] Comment on above: Order Comment: No: D o not add to previous draw Performed By: #### 4 1000, , 10188 ####[facility] [place] [address], [place] Creatinine [Mass/Vol] 1.17 mg/dL Normal 0.70-1.30 [facility] Comment on above: Order Comment: No: D o not add to previous draw Performed By: #### 4 1000, , 97658 ####[facility] [place] [address], [place] GFR/1.73 sq M.predicted among blacks MDRD (S/P/Bld) [Vol rate/Area] mL/min/{1.73_m2} Normal >60 [facility] Comment on above: Order Comment: No: D o not add to previous draw Performed By: #### 4 1000, , 96146 ####[facility] [place] [address], [facility] GFR/1.73 sq M.predicted among non-blacks MDRD (S/P/Bld) [Vol rate/Area] mL/min/{1.73_m2} Normal >60 [facility] Comment on above: Order Comment: No: D o not add to previous draw Performed By: #### 4 1000, [address], [address] ####[place] [address] [facility] [address], [facility] Glucose [Mass/Vol] 110 mg/dL High 70-100 [facility] Comment on above: Order Comment: No: D o not add to previous draw Performed By: #### 4 1000, 43949, 83123 ####[address] [place] [address], [facility] Potassium [Moles/Vol] 4.4 mmol/L Normal 3.5-5.1 [facility] Comment on above: Order Comment: No: D o not add to previous draw Performed By: #### 4 1000, 61608, 96389 ####[place] [address] [place] [address], [facility] Sodium [Moles/Vol] 137 mmol/L Normal 136-145 [facility] Comment on above: Order Comment: No: D o not add to previous draw Performed By: #### 4 1000, 23342, 38348 ####[place] [address] [place] [address], [facility] Urea nitrogen [Mass/Vol] 51 mg/dL High 7-25 [facility] Comment on above: Order Comment: No: D o not add to previous draw Performed By: #### 4 1000, 43256, 06796 ####[address] [place] [address], [facility] BNP (B-TYPE NATRIURETIC PEPT CHANNING)on 08-28-2021 Natriuretic peptide B (Bld) [Mass/Vol] 18 pg/mL Normal 0-100 [facility] Comment on above: Order Comment: Yes: Add to Previous draw if able Result Comment: Give n the appropriate clinical setting a BNP result of >100 pg/mLindicates congestive heart failure. Performed By: #### 8 5123 ####[facility] CBC COMPLETE BLOOD COUNTon 0 - Erythrocyte distribution width (RBC) [Ratio] 13.8 % Normal 11.5-15.0 [facility] Comment on above: Order Comment: No: D o not add to previous draw Performed By: #### 5 0608 ####[facility] Hematocrit (Bld) [Volume fraction] 29.2 % Low 39.0-50.0 [facility] Comment on above: Order Comment: No: D o not add to previous draw Performed By: #### 5 0608 ####[facility] Hemoglobin (Bld) [Mass/Vol] 9.2 g/dL Low 13.0-17.0 [facility] Comment on above: Order Comment: No: D o not add to previous draw Performed By: #### 5 0608 ####[facility] MCH (RBC) [Entitic mass] 27.4 pg Normal 27.0-33.0 [facility] Comment on above: Order Comment: No: D o not add to previous draw Performed By: #### 5 0608 ####[facility] MCHC (RBC) [Mass/Vol] 31.5 g/dL Low 32.0-35.0 [facility] Comment on above: Order Comment: No: D o not add to previous draw Performed By: #### 5 0608 ####[facility] MCV (RBC) [Entitic vol] 86.9 fL Normal 82.0-98.0 [facility] Comment on above: Order Comment: No: D o not add to previous draw Performed By: #### 5 0608 ####[facility] Nucleated RBC/100 WBC (Bld) [Ratio] 0 % Normal 0-0 [facility] Comment on above: Order Comment: No: D o not add to previous draw Performed By: #### 5 0608 ####[facility] PLAT CNT 209 10*3/uL Normal 150-400 [facility] Comment on above: Order Comment: No: D o not add to previous draw Performed By: #### 5 0608 ####[place] [address] RBC (Bld) [#/Vol] 3.36 10*6/uL Low 4.20-5.70 [facility] Comment on above: Order Comment: No: D o not add to previous draw Performed By: #### 5 0608 ####[address] WBC (Bld) [#/Vol] 8.71 10*3/uL Normal 4.00-10.60 [facility] Comment on above: Order Comment: No: D o not add to previous draw Performed By: #### 5 0608 ####[address] CBC W/DIFFon 08-28-2021 ABS IMM GRANS 0.0 10*3/uL Normal 0.0-0.2 [facility] Comment on above: Performed By: #### 5 0103 ####[address] ABS NEUTROPHILS 4.1 10*3/uL Normal 1.6-7.6 [facility] Comment on above: Performed By: #### 5 0103 ####[facility] [facility] Basophils (Bld) [#/Vol] 0.1 10*3/uL Normal 0.0-0.2 [facility] Comment on above: Performed By: #### 5 0103 ####[facility] Basophils/100 WBC (Bld) 1.0 % Normal 0.0-1.0 [facility] Comment on above: Performed By: #### 5 3 ####[facility] [facility] Eosinophils (Bld) [#/Vol] 0.4 10*3/uL Normal 0.0-0.5 [facility] Comment on above: Performed By: #### 3 ####[facility] .[address] Eosinophils/100 WBC (Bld) 4.3 % Normal 0.0-6.0 [facility] Comment on above: Performed By: #### 3 ####[facility] [facility] Erythrocyte distribution width (RBC) [Ratio] 13.7 % Normal 11.5-15.0 [facility] Comment on above: Performed By: #### 5 3 ####[facility] [facility] Hematocrit (Bld) [Volume fraction] 32.0 % Low 39.0-50.0 [facility] Comment on above: Performed By: #### 5 3 ####[facility] Hemoglobin (Bld) [Mass/Vol] 10.1 g/dL Low 13.0-17.0 [facility] Comment on above: Performed By: #### 5 0103 ####[facility] [place] [address], [facility] IMMATURE GRANS 0.4 % Normal 0.0-1.0 [facility] Comment on above: Performed By: #### 5 0103 ####[facility] [place] [address] Lymphocytes (Bld) [#/Vol] 2.9 10*3/uL Normal 1.2-4.0 [facility] Comment on above: Performed By: #### 5 0103 ####[address] Lymphocytes/100 WBC (Bld) 34.3 % Normal 20.0-45.0 [facility] Comment on above: Performed By: #### 5 0103 ####[address] MCH (RBC) [Entitic mass] 27.6 pg Normal 27.0-33.0 [facility] Comment on above: Performed By: #### 5 0103 ####[facility] MCHC (RBC) [Mass/Vol] 31.6 g/dL Low 32.0-35.0 [facility] Comment on above: Performed By: #### 5 0103 ####[place] [address], [facility] MCV (RBC) [Entitic vol] 87.4 fL Normal 82.0-98.0 [facility] Comment on above: Performed By: #### 5 3 ####[place] [id number], [facility] Monocytes (Bld) [#/Vol] 0.9 10*3/uL Normal 0.1-1.0 [facility] Comment on above: Performed By: #### 5 0103 ####[facility] [place] [address], [facility] MONOS 10.2 % Normal 5.0-12.0 [facility] Comment on above: Performed By: #### 5 0103 ####[facility] [place] [address], [facility] Neutrophils/100 WBC (Bld) 49.8 % Normal 40.0-72.0 [facility] Comment on above: Performed By: #### 5 3 ####[facility] [place] [address], [facility] Nucleated RBC/100 WBC (Bld) [Ratio] 0 % Normal 0-0 [facility] Comment on above: Performed By: #### 5 0103 ####[facility] [place] [address], [facility] PLAT CNT 266 10*3/uL Normal 150-400 [facility] Comment on above: Performed By: #### 5 3 ####[facility] [place] [address], [facility] RBC (Bld) [#/Vol] 3.66 10*6/uL Low 4.20-5.70 [facility] Comment on above: Performed By: #### 5 0103 ####[facility] [place] [address], [facility] WBC (Bld) [#/Vol] 8.30 10*3/uL Normal 4.00-10.60 [facility] Comment on above: Performed By: #### 3 ####[facility] [place] [address], [place] MAGNESIUM BLOODon 08-28-2021 Magnesium [Mass/Vol] 2.4 mg/dL Normal 1.9-2.7 [facility] Comment on above: Order Comment: No: D o not add to previous draw Performed By: #### 4 1000, 78990, 60579 ####[facility] [place] [address], [facility] PHOSPHORUS BLOODon Phosphate [Mass/Vol] 4.9 mg/dL Normal 2.5-5.0 [facility] Comment on above: Order Comment: No: D o not add to previous draw Performed By: #### 4 1000, 18479, 40031 ####[facility] [place] [address], [place] POC GLUCOSE LABon 08-28-2021 Glucose [Mass/Vol] 179 mg/dL High 70-100 [facility] Comment on above: Performed By: #### 8 5499 ####[facility] [place] [address], [place] Glucose [Mass/Vol] 255 mg/dL High 70-100 [facility] Comment on above: Performed By: #### 8 5499 ####[facility] [facility] [place] [address], [place] Glucose [Mass/Vol] 171 mg/dL High 70-100 [facility] Comment on above: Performed By: #### 8 5499 ####[facility] [place] [address], [place] Glucose [Mass/Vol] 120 mg/dL High 70-100 [facility] Comment on above: Performed By: #### 8 5499 ####[facility] [place] [address], [place] PORTABLE CHEST 1 VIEWon 08-10 PORTABLE CHEST 1 VIEW Normal [facility] Comment on above: Order Comment: Infil trates APTTon 08-27-2021 aPTT Coag (Bld) [Time] 82.2 s Critically high 25.0-35.0 [facility] Comment on above: Result Comment: CLIN ICAL SIGNIFICANCE OF THE PTT RESULT IS QUESTIONABLE IN THE PRESENCEOF HEPARIN.Result checked and called. Accurately read back by Samara Thakur RN, [id number] Performed By: #### 5 7307, 76108 ####[facility] [place] [address], [place] aPTT Coag (Bld) [Time] 168.9 s Critically high 25.0-35.0 [facility] Comment on above: Order Comment: No: D o not add to previous draw Result Comment: RESU LTS CHECKED AND CALLED. ACCURATELY READ BACK BY JOSE BARRON at 2350CLINICAL SIGNIFICANCE OF THE PTT RESULT IS QUESTIONABLE IN THE PRESENCEOF HEPARIN.Rivaroxaban and Apixaban will interfere with the anti Xa assay used tomonitor UFH and LMWH. Performed By: #### 3 0477, 26993 ####[facility] [facility] [place] [address], [facility] BASIC METABOLIC PANELon - Calcium [Mass/Vol] 9.4 mg/dL Normal 8.6-10.3 [facility] Comment on above: Order Comment: No: D o not add to previous drawMissed twice Performed By: #### 0 0071 ####[facility] [place] [address], [facility] Chloride [Moles/Vol] 99 mmol/L Normal 98-107 [facility] Comment on above: Order Comment: No: D o not add to previous drawMissed twice Performed By: #### 0 0071 ####[facility] [place] [address], [facility] CO2 [Moles/Vol] 23 mmol/L Normal 21-31 [facility] Comment on above: Order Comment: No: D o not add to previous drawMissed twice Performed By: #### 0 0071 ####[facility] [place] [address], [facility] Creatinine [Mass/Vol] 1.23 mg/dL Normal 0.70-1.30 [facility] Comment on above: Order Comment: No: D o not add to previous drawMissed twice Performed By: #### 0 0071 ####[facility] [facility] [place] [address], [facility] eGFR- non- 60 ml/min/1.73sq m Abnormal >60 [facility] Comment on above: Order Comment: No: D o not add to previous drawMissed twice Performed By: #### 0 0071 ####[facility] [place] [address], [facility] GFR/1.73 sq M.predicted among blacks MDRD (S/P/Bld) [Vol rate/Area] mL/min/{1.73_m2} Normal >60 [facility] Comment on above: Order Comment: No: D o not add to previous drawMissed twice Performed By: #### 0 0071 ####[facility] [place] [address], [facility] Glucose [Mass/Vol] 137 mg/dL High 70-100 [facility] Comment on above: Order Comment: No: D o not add to previous drawMissed twice Performed By: #### 0 0071 ####[facility] [place] [address], [facility] Potassium [Moles/Vol] 5.6 mmol/L High 3.5-5.1 [facility] Comment on above: Order Comment: No: D o not add to previous drawMissed twice Performed By: #### 0 0071 ####[facility] [place] [address], [facility] Sodium [Moles/Vol] 132 mmol/L Low 136-145 [facility] Comment on above: Order Comment: No: D o not add to previous drawMissed twice Performed By: #### 0 0071 ####[facility] [place] [address], [place] Urea nitrogen [Mass/Vol] 57 mg/dL High 7-25 [facility] Comment on above: Order Comment: No: D o not add to previous drawMissed twice Performed By: #### 0 0071 ####[facility] [place] [address], [place] POC GLUCOSE LABon 08-27-2021 Glucose [Mass/Vol] 278 mg/dL High 70-100 [facility] Comment on above: Performed By: #### 8 5499 ####[facility] [place] [address], [place] Glucose [Mass/Vol] 165 mg/dL High 70-100 [facility] Comment on above: Performed By: #### 8 5499 ####[facility] [place] [address], [place] Glucose [Mass/Vol] 157 mg/dL High 70-100 [facility] Comment on above: Performed By: #### 8 5499 ####[facility] [place] [address], [place] Glucose [Mass/Vol] 134 mg/dL High 70-100 [facility] Comment on above: Performed By: #### 8 5499 ####[facility] [place] [address], [place] UFH HEPARIN ASSAYon 08-28-19 22 UNFRACTIONATED HEPARIN 0.62 IU/mL Normal 0.30-0.70 [facility] Comment on above: Order Comment: Marie curielMissedRpreet Costa. Notified Result Comment: [place] roxaban and Apixaban will interfere with the anti Xa assay used tomonitor UFH and LMWH. Performed By: #### 5 7307, 39168 ####[facility] UNFRACTIONATED HEPARIN 0.76 IU/mL High 0.30-0.70 [facility] Comment on above: Result Comment: [place] roxaban and Apixaban will interfere with the anti Xa assay used tomonitor UFH and LMWH.RESULTS CHECKED AND CALLED. ACCURATELY READ BACK BY JOSE BARRON at 2350 Performed By: #### 3 0027, 74367 ####[facility] BASIC METABOLIC PANELon - Calcium [Mass/Vol] 9.6 mg/dL Normal 8.6-10.3 [facility] Comment on above: Performed By: #### 0 0071, [address]3464 ####[place] [address] Chloride [Moles/Vol] 93 mmol/L Low 98-107 [facility] Comment on above: Performed By: #### 0 0071, 90416 ####[place] [address] [place] [address], [facility] CO2 [Moles/Vol] 26 mmol/L Normal 21-31 [facility] Comment on above: Performed By: #### 0 0071, 37626 ####[place] [address] Creatinine [Mass/Vol] 1.45 mg/dL High 0.70-1.30 [facility] Comment on above: Performed By: #### 0 0071, 39579 ####[place] [address] [address] eGFR- 60 ml/min/1.73sq m Abnormal >60 [facility] Comment on above: Performed By: #### 0 0071, [id number] ####[address] [place] [address], [facility] eGFR- non- 50 ml/min/1.73sq m Abnormal >60 [facility] Comment on above: Performed By: #### 0 007, [id number] ####[facility] [place] [address], [facility] Glucose [Mass/Vol] 214 mg/dL High 70-100 [facility] Comment on above: Performed By: #### 0 007, 10668 ####[facility] [address], [facility] Potassium [Moles/Vol] 4.8 mmol/L Normal 3.5-5.1 [facility] Comment on above: Performed By: #### 0 70, 43247 ####[place] [address] [place] [address], [facility] Sodium [Moles/Vol] 133 mmol/L Low 136-145 [facility] Comment on above: Performed By: #### 0 70, 45569 ####[place] [address] [place] [address], [facility] Urea nitrogen [Mass/Vol] 57 mg/dL High 7-25 [facility] Comment on above: Performed By: #### 0 70, 83816 ####[place] [address] [address], [facility] HEMATOCRITon 08-26-2021 Hematocrit (Bld) [Volume fraction] 34.0 % Low 39.0-50.0 [facility] Comment on above: Order Comment: No: D o not add to previous draw Performed By: #### 9 1649, 46344 ####[facility] [id number], [facility] HEMOGLOBINon 08-26-2021 Hemoglobin (Bld) [Mass/Vol] 11.4 g/dL Low 13.0-17.0 [facility] Comment on above: Order Comment: No: D o not add to previous draw Performed By: #### 9 2089, 49207 ####[facility] [place] [address], [facility] POC GLUCOSE LABon 08-26-2021 Glucose [Mass/Vol] 146 mg/dL High 70-100 [facility] Comment on above: Performed By: #### 8 5499 ####[facility] [place] [address], [facility] Glucose [Mass/Vol] 196 mg/dL High 70-100 [facility] Comment on above: Performed By: #### 8 5499 ####[facility] [place] [address], [facility] Glucose [Mass/Vol] 183 mg/dL High 70-100 [facility] Comment on above: Performed By: #### 8 5499 ####[facility] [place] [address], [facility] Glucose [Mass/Vol] 308 mg/dL High 70-100 [facility] Comment on above: Performed By: #### 8 5499 ####[facility] [place] [address], [facility] TROPONIN-Ion 08-26-2021 Troponin I.cardiac [Mass/Vol] 0.03 ng/mL Normal 0.00-0.04 [facility] Comment on above: Order Comment: No: D o not add to previous draw Result Comment: REFE RENCE RANGES: 0.00 - 0.04 ng/ml NORMAL 0.05 - 0.50 ng/ml INDETERMINATE > 0.50 ng/ml CONSISTENT WITH AN M.I. Performed By: #### 0 0071, 93210 ####[facility] [place] [address], [facility] UFH HEPARIN ASSAYon 08-27-19 22 UNFRACTIONATED HEPARIN 0.61 IU/mL Normal 0.30-0.70 [facility] Comment on above: Order Comment: This order is a replacement of the rejected order with accession [id number]. Result Comment: Kylie roxaban and Apixaban will interfere with the anti Xa assay used tomonitor UFH and LMWH. Performed By: #### 3 0477 ####[facility] [place] [address], [facility] US ABDOMEN LIMITED FOR ASCIT ESon 08-26-2021 US ABDOMEN LIMITED FOR ASCITES Normal [facility] Comment on above: Order Comment: [place] Documentation Only APTTon 08-25-2021 aPTT Coag (Bld) [Time] 94.6 s Critically high 25.0-35.0 [facility] Comment on above: Order Comment: No: D o not add to previous draw Result Comment: CLIN ICAL SIGNIFICANCE OF THE PTT RESULT IS QUESTIONABLE IN THE PRESENCEOF HEPARIN.Result checked and called. Accurately read back by Jo Figueroa RNat 0744 Performed By: #### 3 0477, 27764 ####[facility] BASIC METABOLIC PANELon - Calcium [Mass/Vol] 9.4 mg/dL Normal 8.6-10.3 [facility] Comment on above: Order Comment: No: D o not add to previous draw Performed By: #### 0 0071 ####[place] [address] [place] [address], [facility] Chloride [Moles/Vol] 91 mmol/L Low 98-107 [facility] Comment on above: Order Comment: No: D o not add to previous draw Performed By: #### 0 0071 ####[facility] [place] [address], [facility] CO2 [Moles/Vol] 30 mmol/L Normal 21-31 [facility] Comment on above: Order Comment: No: D o not add to previous draw Performed By: #### 0 0071 ####[facility] [place] [address], [facility] Creatinine [Mass/Vol] 1.06 mg/dL Normal 0.70-1.30 [facility] Comment on above: Order Comment: No: D o not add to previous draw Performed By: #### 0 0071 ####[facility] [place] [address], [facility] GFR/1.73 sq M.predicted among blacks MDRD (S/P/Bld) [Vol rate/Area] mL/min/{1.73_m2} Normal >60 [facility] Comment on above: Order Comment: No: D o not add to previous draw Performed By: #### 0 0071 ####[facility] [place] [address], [facility] GFR/1.73 sq M.predicted among non-blacks MDRD (S/P/Bld) [Vol rate/Area] mL/min/{1.73_m2} Normal >60 [facility] Comment on above: Order Comment: No: D o not add to previous draw Performed By: #### 0 0071 ####[facility] [place] [address], [facility] Glucose [Mass/Vol] 256 mg/dL High 70-100 [facility] Comment on above: Order Comment: No: D o not add to previous draw Performed By: #### 0 0071 ####[facility] [place] [address], [facility] Potassium [Moles/Vol] 4.2 mmol/L Normal 3.5-5.1 [facility] Comment on above: Order Comment: No: D o not add to previous draw Performed By: #### 0 0071 ####[facility] [place] [address], [place] Sodium [Moles/Vol] 131 mmol/L Low 136-145 [facility] Comment on above: Order Comment: No: D o not add to previous draw Performed By: #### 0 0071 ####[facility] [place] [address], [facility] Urea nitrogen [Mass/Vol] 57 mg/dL High 7-25 [facility] Comment on above: Order Comment: No: D o not add to previous draw Performed By: #### 0 0071 ####[facility] [place] [address], [facility] POC GLUCOSE LABon 08-25-2021 Glucose [Mass/Vol] 199 mg/dL High 70-100 [facility] Comment on above: Performed By: #### 8 5499 ####[facility] [place] [address], [facility] Glucose [Mass/Vol] 183 mg/dL High 70-100 [facility] Comment on above: Performed By: #### 8 5499 ####[facility] [place] [address], [facility] Glucose [Mass/Vol] 185 mg/dL High 70-100 [facility] Comment on above: Performed By: #### 8 5499 ####[facility] [place] [address], [facility] Glucose [Mass/Vol] 273 mg/dL High 70-100 [facility] Comment on above: Performed By: #### 8 5499 ####[facility] [place] [address], [facility] UFH HEPARIN ASSAYon 08-26-19 UNFRACTIONATED HEPARIN 0.83 IU/mL High 0.30-0.70 [facility] Comment on above: Result Comment: Kylie roxaban and Apixaban will interfere with the anti Xa assay used tomonitor UFH and LMWH. Performed By: #### 3 0477 ####[facility] [place] [address], [facility] UNFRACTIONATED HEPARIN 0.80 IU/mL High 0.30-0.70 [facility] Comment on above: Result Comment: Kylie roxaban and Apixaban will interfere with the anti Xa assay used tomonitor UFH and LMWH. Performed By: #### 3 0477, 88705 ####[facility] [place] [address], [facility] APTTon 08-24-2021 aPTT Coag (Bld) [Time] 154.0 s Critically high 25.0-35.0 [facility] Comment on above: Order Comment: No: D o not add to previous draw Result Comment: CLIN ICAL SIGNIFICANCE OF THE PTT RESULT IS QUESTIONABLE IN THE PRESENCEOF HEPARIN.Results called. Accurately read back by Jose Doyle,,RN, CVU 3CD pt's nurse, at 2254, . Performed By: #### 3 0477, 13241 ####[facility] [place] [address], [facility] aPTT Coag (Bld) [Time] 150.2 s Critically high 25.0-35.0 [facility] Comment on above: Order Comment: No: D o not add to previous draw Result Comment: CLIN ICAL SIGNIFICANCE OF THE PTT RESULT IS QUESTIONABLE IN THE PRESENCEOF HEPARIN.RESULTS CHECKED AND CALLED. ACCURATELY READ BACK BY YULIA HERBERT AT 1523 Performed By: #### 5 7307, 58960 ####[facility] [place] [address], [facility] aPTT Coag (Bld) [Time] 163.5 s Critically high 25.0-35.0 [facility] Comment on above: Order Comment: No: D o not add to previous draw Result Comment: CLIN ICAL SIGNIFICANCE OF THE PTT RESULT IS QUESTIONABLE IN THE PRESENCEOF HEPARIN.Result checked and called. Accurately read back by Pamela Shrestha at 0735 Performed By: #### 5 7307, 64448 ####[facility] [place] [address], [facility] BASIC METABOLIC PANELon 04-1 Calcium [Mass/Vol] 9.4 mg/dL Normal 8.6-10.3 [facility] Comment on above: Order Comment: No: D o not add to previous draw Performed By: #### 0 0071 ####[facility] [place] [address], [facility] Chloride [Moles/Vol] 84 mmol/L Low 98-107 [facility] Comment on above: Order Comment: No: D o not add to previous draw Performed By: #### 0 0071 ####[facility] [place] [address], [facility] CO2 [Moles/Vol] 31 mmol/L Normal 21-31 [facility] Comment on above: Order Comment: No: D o not add to previous draw Performed By: #### 0 0071 ####[facility] [id number], [facility] Creatinine [Mass/Vol] 1.87 mg/dL High 0.70-1.30 [facility] Comment on above: Order Comment: No: D o not add to previous draw Performed By: #### 0 0071 ####[facility] [facility] [place] [address], [facility] eGFR- 45 ml/min/1.73sq m Abnormal >60 [facility] Comment on above: Order Comment: No: D o not add to previous draw Performed By: #### 0 0071 ####[facility] [place] [address], [place] eGFR- non- 37 ml/min/1.73sq m Abnormal >60 [facility] Comment on above: Order Comment: No: D o not add to previous draw Performed By: #### 0 0071 ####[facility] [id number], [place] Glucose [Mass/Vol] 181 mg/dL High 70-100 [facility] Comment on above: Order Comment: No: D o not add to previous draw Performed By: #### 0 0071 ####[facility] [place] [address], [place] Potassium [Moles/Vol] 4.1 mmol/L Normal 3.5-5.1 [facility] Comment on above: Order Comment: No: D o not add to previous draw Performed By: #### 0 0071 ####[facility] [place] [address], [place] Sodium [Moles/Vol] 131 mmol/L Low 136-145 [facility] Comment on above: Order Comment: No: D o not add to previous draw Performed By: #### 0 0071 ####[facility] [place] [address], [place] Urea nitrogen [Mass/Vol] 77 mg/dL High 7-25 [facility] Comment on above: Order Comment: No: D o not add to previous draw Performed By: #### 0 0071 ####[facility] [place] [address], [facility] CHEST AND LATERALon 08-25-19 CHEST AND LATERAL Normal [facility] Comment on above: Order Comment: evalu ate Atelectasis POC GLUCOSE LABon 08-24-2021 Glucose [Mass/Vol] 170 mg/dL High 70-100 [facility] Comment on above: Performed By: #### 8 5499 ####[facility] [place] [address], [place] Glucose [Mass/Vol] 215 mg/dL High 70-100 [facility] Comment on above: Performed By: #### 8 5499 ####[facility] [place] [address], [place] Glucose [Mass/Vol] 219 mg/dL High 70-100 [facility] Comment on above: Performed By: #### 8 5499 ####[facility] [place] [address], [facility] Glucose [Mass/Vol] 194 mg/dL High 70-100 [facility] Comment on above: Performed By: #### 8 5499 ####[facility] [place] [address], [facility] UFH HEPARIN ASSAYon 08-25-19 22 UNFRACTIONATED HEPARIN 0.99 IU/mL Critically high 0.30-0.70 [facility] Comment on above: Order Comment: UFH a dded per protocol. Result Comment: Kylie roxaban and Apixaban will interfere with the anti Xa assay used tomonitor UFH and LMWH.Results called. Accurately read back by Jose Doyle,,RN, CVU 3CD pt's nurse, at 2254, . Performed By: #### 3 0477, 78355 ####[facility] UNFRACTIONATED HEPARIN >1.00 Critically high 0.30-0.70 [facility] Comment on above: Order Comment: ADDED ON PER PROTOCOL Result Comment: Kylie roxaban and Apixaban will interfere with the anti Xa assay used tomonitor UFH and LMWH.Rivaroxaban and Apixaban will interfere with the anti Xa assay used tomonitor UFH and LMWH. Performed By: #### 5 7307, 50144 ####[facility] [place] [address], [facility] UNFRACTIONATED HEPARIN 1.00 IU/mL Critically high 0.30-0.70 [facility] Comment on above: Result Comment: Resu lt checked and called. Accurately read back by Pamela Shrestha at 0735Rivaroxaban and Apixaban will interfere with the anti Xa assay used tomonitor UFH and LMWH. Performed By: #### 5 7307, 31890 ####[facility] [place] [address], [facility] APTTon 08-23-2021 aPTT Coag (Bld) [Time] 55.1 s High 25.0-35.0 [facility] Comment on above: Order Comment: No: D [...] THIS PURPOSE. Performed By: #### 5 7307, 52170 ####[facility] [place] [address], [facility] aPTT Coag (Bld) [Time] 115.6 s Critically high 25.0-35.0 [facility] Comment on above: Order Comment: No: D o not add to previous draw Result Comment: CLIN ICAL SIGNIFICANCE OF THE PTT RESULT IS QUESTIONABLE IN THE PRESENCEOF HEPARIN.Result checked and called. Accurately read back by Margarita Quintero RN [id number] Performed By: #### 5 7307, 90646 ####[facility] [place] [address], [facility] aPTT Coag (Bld) [Time] 54.1 s High 25.0-35.0 [facility] Comment on above: Order Comment: No: D [...] CALLED. ACCURATELY READ BACK BY JEYSON PEREA [id number] Performed By: #### 5 7307 ####[facility] BASIC METABOLIC PANELon 08-09 Calcium [Mass/Vol] 9.1 mg/dL Normal 8.6-10.3 [facility] Comment on above: Order Comment: No: D o not add to previous draw Performed By: #### 0 0071, 26732 ####[facility] [place] [address], [facility] Chloride [Moles/Vol] 90 mmol/L Low 98-107 [facility] Comment on above: Order Comment: No: D o not add to previous draw Performed By: #### 0 0071, 83264 ####[place] [address] [place] [address], [facility] CO2 [Moles/Vol] 31 mmol/L Normal 21-31 [facility] Comment on above: Order Comment: No: D o not add to previous draw Performed By: #### 0 0071, 02384 ####[facility] [place] [address], [facility] Creatinine [Mass/Vol] 1.58 mg/dL High 0.70-1.30 [facility] Comment on above: Order Comment: No: D o not add to previous draw Performed By: #### 0 0071, 53631 ####[facility] [place] [address], [facility] eGFR- 54 ml/min/1.73sq m Abnormal >60 [facility] Comment on above: Order Comment: No: D o not add to previous draw Performed By: #### 0 0071, 51167 ####[facility] [place] [address], [facility] eGFR- non- 45 ml/min/1.73sq m Abnormal >60 [facility] Comment on above: Order Comment: No: D o not add to previous draw Performed By: #### 0 0071, 92771 ####[facility] [place] [address], [facility] Glucose [Mass/Vol] 180 mg/dL High 70-100 [facility] Comment on above: Order Comment: No: D o not add to previous draw Performed By: #### 0 0071, 23157 ####[facility] [place] [address], [place] Potassium [Moles/Vol] 3.3 mmol/L Low 3.5-5.1 [facility] Comment on above: Order Comment: No: D o not add to previous draw Performed By: #### 0 0071, 08591 ####[facility] [place] [address], [place] Sodium [Moles/Vol] 135 mmol/L Low 136-145 [facility] Comment on above: Order Comment: No: D o not add to previous draw Performed By: #### 0 0071, 46478 ####[facility] [place] [address], [facility] Urea nitrogen [Mass/Vol] 55 mg/dL High 7-25 [facility] Comment on above: Order Comment: No: D o not add to previous draw Performed By: #### 0 0071, 19542 ####[facility] [place] [address], [facility] MAGNESIUM BLOODon 08-23-2021 Magnesium [Mass/Vol] 2.2 mg/dL Normal 1.9-2.7 [facility] Comment on above: Order Comment: No: D o not add to previous draw Performed By: #### 0 0071, 38173 ####[facility] [place] [address], [place] POC GLUCOSE LABon 08-23-2021 Glucose [Mass/Vol] 214 mg/dL High 70-100 [facility] Comment on above: Performed By: #### 8 5499 ####[facility] [place] [address], [facility] Glucose [Mass/Vol] 325 mg/dL High 70-100 [facility] Comment on above: Performed By: #### 8 5499 ####[facility] [facility] [place] [address], [place] Glucose [Mass/Vol] 312 mg/dL High 70-100 [facility] Comment on above: Performed By: #### 8 5499 ####[facility] [facility] [place] [address], [place] Glucose [Mass/Vol] 179 mg/dL High 70-100 [facility] Comment on above: Performed By: #### 8 5499 ####[facility] [place] [address], [facility] POC SARS COV2 ANTIGEN NEGATI VEon 08-23-2021 POC SARS COV2 ANTIGEN NEG Negative Normal NEGATIVE [facility] Comment on above: Result Comment: Nega tive [...] protein antigen from SARS-CoV-2 in directnasopharyngeal swab (PRESSURE DISPATCHER) specimens from individuals who are suspected ofCOVID-19 [...] Certificate ofAccreditation. Performed By: #### 3 2044 ####[facility] UFH HEPARIN ASSAYon 08-24-19 UNFRACTIONATED HEPARIN 0.37 IU/mL Normal 0.30-0.70 [facility] Comment on above: Order Comment: Added per protocol Result Comment: [place] roxaban and Apixaban will interfere with the anti Xa assay used tomonitor UFH and LMWH. Performed By: #### 5 7307, 27345 ####[facility] UNFRACTIONATED HEPARIN 0.87 IU/mL High 0.30-0.70 [facility] Comment on above: Result Comment: Kylie roxaban and Apixaban will interfere with the anti Xa assay used tomonitor UFH and LMWH. Performed By: #### 5 7307, 07454 ####[facility] APTTon 08-22-2021 aPTT Coag (Bld) [Time] 31.9 s Normal 25.0-35.0 [facility] Comment on above: Order Comment: No: D [...] THIS PURPOSE. Performed By: #### 5 7307 ####[facility] [place] [address], [facility] aPTT Coag (Bld) [Time] 30.0 s Normal 25.0-35.0 [facility] Comment on above: Order Comment: No: D [...] THIS PURPOSE. Performed By: #### 5 7307 ####[facility] BASIC METABOLIC PANELon 08-09 Calcium [Mass/Vol] 8.7 mg/dL Normal 8.6-10.3 [facility] Comment on above: Order Comment: No: D o not add to previous draw Performed By: #### 0 0071, 91657 ####[facility] Chloride [Moles/Vol] 94 mmol/L Low 98-107 [facility] Comment on above: Order Comment: No: D o not add to previous draw Performed By: #### 0 0071, 76277 ####[facility] CO2 [Moles/Vol] 28 mmol/L Normal 21-31 [facility] Comment on above: Order Comment: No: D o not add to previous draw Performed By: #### 0 0071, 57852 ####[facility] Creatinine [Mass/Vol] 1.28 mg/dL Normal 0.70-1.30 [facility] Comment on above: Order Comment: No: D o not add to previous draw Performed By: #### 0 0071, 45876 ####[facility] eGFR- non- 57 ml/min/1.73sq m Abnormal >60 [facility] Comment on above: Order Comment: No: D o not add to previous draw Performed By: #### 0 0071, 09392 ####[facility] [facility] [place] [address], [facility] GFR/1.73 sq M.predicted among blacks MDRD (S/P/Bld) [Vol rate/Area] mL/min/{1.73_m2} Normal >60 [facility] Comment on above: Order Comment: No: D o not add to previous draw Performed By: #### 0 0071, 98447 ####[facility] [facility] [place] [address], [facility] Glucose [Mass/Vol] 146 mg/dL High 70-100 [facility] Comment on above: Order Comment: No: D o not add to previous draw Performed By: #### 0 0071, 06253 ####[facility] [place] [address], [facility] Potassium [Moles/Vol] 3.6 mmol/L Normal 3.5-5.1 [facility] Comment on above: Order Comment: No: D o not add to previous draw Performed By: #### 0 0071, 20330 ####[facility] [facility] [place] [address], [facility] Sodium [Moles/Vol] 134 mmol/L Low 136-145 [facility] Comment on above: Order Comment: No: D o not add to previous draw Performed By: #### 0 0071, 28618 ####[facility] [facility] [place] [address], [facility] Urea nitrogen [Mass/Vol] 36 mg/dL High 7-25 [facility] Comment on above: Order Comment: No: D o not add to previous draw Performed By: #### 0 0071, 34261 ####[facility] [place] [address], [facility] MAGNESIUM BLOODon 08-22-2021 Magnesium [Mass/Vol] 1.6 mg/dL Low 1.9-2.7 [facility] Comment on above: Order Comment: No: D o not add to previous draw Performed By: #### 0 0071, 40504 ####[facility] [place] [address], [facility] POC GLUCOSE LABon 08-22-2021 Glucose [Mass/Vol] 165 mg/dL High 70-100 [facility] Comment on above: Performed By: #### 8 5499 ####[facility] [place] [address], [facility] Glucose [Mass/Vol] 154 mg/dL High 70-100 [facility] Comment on above: Performed By: #### 8 5499 ####[facility] [place] [address], [facility] Glucose [Mass/Vol] 254 mg/dL High 70-100 [facility] Comment on above: Performed By: #### 8 5499 ####[facility] [place] [address], [facility] Glucose [Mass/Vol] 208 mg/dL High 70-100 [facility] Comment on above: Performed By: #### 8 5499 ####[facility] [place] [address], [facility] APTTon 08-21-2021 aPTT Coag (Bld) [Time] 27.2 s Normal 25.0-35.0 [facility] Comment on above: Order Comment: No: D [...] THIS PURPOSE. Performed By: #### 5 7307 ####[facility] [place] [address], [facility] aPTT Coag (Bld) [Time] 29.4 s Normal 25.0-35.0 [facility] Comment on above: Order Comment: No: D [...] THIS PURPOSE. Performed By: #### 5 7307 ####[facility] aPTT Coag (Bld) [Time] 41.4 s High 25.0-35.0 [facility] Comment on above: Order Comment: No: D [...] THIS PURPOSE. Performed By: #### 5 7307 ####[facility] aPTT Coag (Bld) [Time] 33.7 s Normal 25.0-35.0 [facility] Comment on above: Order Comment: No: D [...] THIS PURPOSE. Performed By: #### 5 7307 ####[facility] BASIC METABOLIC PANELon - Calcium [Mass/Vol] 8.7 mg/dL Normal 8.6-10.3 [facility] Comment on above: Order Comment: No: D o not add to previous draw Performed By: #### 0 0071, 86139 ####[facility] [place] [address], [facility] Chloride [Moles/Vol] 101 mmol/L Normal 98-107 [facility] Comment on above: Order Comment: No: D o not add to previous draw Performed By: #### 0 0071, 37722 ####[facility] [place] [address], [facility] CO2 [Moles/Vol] 27 mmol/L Normal 21-31 [facility] Comment on above: Order Comment: No: D o not add to previous draw Performed By: #### 0 0071, 86192 ####[facility] [place] [address], [facility] Creatinine [Mass/Vol] 0.86 mg/dL Normal 0.70-1.30 [facility] Comment on above: Order Comment: No: D o not add to previous draw Performed By: #### 0 0071, 29811 ####[facility] [place] [address], [place] GFR/1.73 sq M.predicted among blacks MDRD (S/P/Bld) [Vol rate/Area] mL/min/{1.73_m2} Normal >60 [facility] Comment on above: Order Comment: No: D o not add to previous draw Performed By: #### 0 0071, 65204 ####[facility] [place] [address], [place] GFR/1.73 sq M.predicted among non-blacks MDRD (S/P/Bld) [Vol rate/Area] mL/min/{1.73_m2} Normal >60 [facility] Comment on above: Order Comment: No: D o not add to previous draw Performed By: #### 0 0071, 61284 ####[facility] [place] [address], [facility] Glucose [Mass/Vol] 155 mg/dL High 70-100 [facility] Comment on above: Order Comment: No: D o not add to previous draw Performed By: #### 0 0071, 16186 ####[facility] [place] [address], [facility] Potassium [Moles/Vol] 3.7 mmol/L Normal 3.5-5.1 [facility] Comment on above: Order Comment: No: D o not add to previous draw Performed By: #### 0 0071, 66067 ####[facility] [place] [address], [facility] Sodium [Moles/Vol] 137 mmol/L Normal 136-145 [facility] Comment on above: Order Comment: No: D o not add to previous draw Performed By: #### 0 0071, 10739 ####[facility] [place] [address], [facility] Urea nitrogen [Mass/Vol] 18 mg/dL Normal 7-25 [facility] Comment on above: Order Comment: No: D o not add to previous draw Performed By: #### 0 0071, 09098 ####[facility] CBC COMPLETE BLOOD COUNTon 0 - Erythrocyte distribution width (RBC) [Ratio] 14.6 % Normal 11.5-15.0 [facility] Comment on above: Order Comment: No: D o not add to previous draw Performed By: #### 5 0608 ####[facility] [place] [address], [facility] Hematocrit (Bld) [Volume fraction] 30.4 % Low 39.0-50.0 [facility] Comment on above: Order Comment: No: D o not add to previous draw Performed By: #### 5 0608 ####[facility] Hemoglobin (Bld) [Mass/Vol] 9.7 g/dL Low 13.0-17.0 [facility] Comment on above: Order Comment: No: D o not add to previous draw Performed By: #### 5 0608 ####[facility] [place] [address] MCH (RBC) [Entitic mass] 27.9 pg Normal 27.0-33.0 [facility] Comment on above: Order Comment: No: D o not add to previous draw Performed By: #### 5 0608 ####[address] MCHC (RBC) [Mass/Vol] 31.9 g/dL Low 32.0-35.0 [facility] Comment on above: Order Comment: No: D o not add to previous draw Performed By: #### 5 0608 ####[address] MCV (RBC) [Entitic vol] 87.4 fL Normal 82.0-98.0 [facility] Comment on above: Order Comment: No: D o not add to previous draw Performed By: #### 5 0608 ####[address] Nucleated RBC/100 WBC (Bld) [Ratio] 0 % Normal 0-0 [facility] Comment on above: Order Comment: No: D o not add to previous draw Performed By: #### 5 0608 ####[address] PLAT CNT 174 10*3/uL Normal 150-400 [facility] Comment on above: Order Comment: No: D o not add to previous draw Performed By: #### 5 0608 ####[facility] [place] [address], [place] RBC (Bld) [#/Vol] 3.48 10*6/uL Low 4.20-5.70 [facility] Comment on above: Order Comment: No: D o not add to previous draw Performed By: #### 5 0608 ####[facility] [place] [address], [place] WBC (Bld) [#/Vol] 4.81 10*3/uL Normal 4.00-10.60 [facility] Comment on above: Order Comment: No: D o not add to previous draw Performed By: #### 5 0608 ####[facility] [place] [address], [place] MAGNESIUM BLOODon 08-21-2021 Magnesium [Mass/Vol] 1.7 mg/dL Low 1.9-2.7 [facility] Comment on above: Order Comment: No: D o not add to previous draw Performed By: #### 0 0071, 33352 ####[facility] [place] [address], [place] POC GLUCOSE LABon 08-21-2021 Glucose [Mass/Vol] 178 mg/dL High 70-100 [facility] Comment on above: Performed By: #### 8 5499 ####[facility] [place] [address], [place] Glucose [Mass/Vol] 205 mg/dL High 70-100 [facility] Comment on above: Performed By: #### 8 5499 ####[facility] [place] [address], [place] Glucose [Mass/Vol] 233 mg/dL High 70-100 [facility] Comment on above: Performed By: #### 8 5499 ####[facility] Glucose [Mass/Vol] 174 mg/dL High 70-100 [facility] Comment on above: Performed By: #### 8 5499 ####[facility] APTTon 08-20-2021 aPTT Coag (Bld) [Time] 36.0 s High 25.0-35.0 [facility] Comment on above: Order Comment: No: D [...] THIS PURPOSE. Performed By: #### 5 7307 ####[facility] aPTT Coag (Bld) [Time] 27.0 s Normal 25.0-35.0 [facility] Comment on above: Order Comment: No: D [...] THIS PURPOSE. Performed By: #### 3 0477, 58688 ####[facility] BASIC METABOLIC PANELon 08-09 Calcium [Mass/Vol] 8.6 mg/dL Normal 8.6-10.3 [facility] Comment on above: Order Comment: No: D o not add to previous draw Performed By: #### 3 5200, 07129, 21641 ####[facility] [place] [address], [place] Chloride [Moles/Vol] 107 mmol/L Normal 98-107 [facility] Comment on above: Order Comment: No: D o not add to previous draw Performed By: #### 3 5200, 12945, 47543 ####[facility] [place] [address], [place] CO2 [Moles/Vol] 28 mmol/L Normal 21-31 [facility] Comment on above: Order Comment: No: D o not add to previous draw Performed By: #### 3 5200, 71440, 70817 ####[facility] [place] [address], [place] Creatinine [Mass/Vol] 0.83 mg/dL Normal 0.70-1.30 [facility] Comment on above: Order Comment: No: D o not add to previous draw Performed By: #### 3 0, 66372, 26921 ####[facility] [place] [address], [place] GFR/1.73 sq M.predicted among blacks MDRD (S/P/Bld) [Vol rate/Area] mL/min/{1.73_m2} Normal >60 [facility] Comment on above: Order Comment: No: D o not add to previous draw Performed By: #### 3 5200, 91419, 02118 ####[facility] [place] [address], [place] GFR/1.73 sq M.predicted among non-blacks MDRD (S/P/Bld) [Vol rate/Area] mL/min/{1.73_m2} Normal >60 [facility] Comment on above: Order Comment: No: D o not add to previous draw Performed By: #### 3 5200, 56220, 01899 ####[facility] [place] [address], [place] Glucose [Mass/Vol] 125 mg/dL High 70-100 [facility] Comment on above: Order Comment: No: D o not add to previous draw Performed By: #### 3 5200, 27965, 36498 ####[facility] Potassium [Moles/Vol] 4.0 mmol/L Normal 3.5-5.1 [facility] Comment on above: Order Comment: No: D o not add to previous draw Performed By: #### 3 5200, 98332, 36310 ####[facility] Sodium [Moles/Vol] 138 mmol/L Normal 136-145 [facility] Comment on above: Order Comment: No: D o not add to previous draw Performed By: #### 3 0, 82587, 82535 ####[facility] Urea nitrogen [Mass/Vol] 15 mg/dL Normal 7-25 [facility] Comment on above: Order Comment: No: D o not add to previous draw Performed By: #### 3 0, 19161, 45268 ####[facility] CBC W/DIFFon 08-20-2021 ABS IMM GRANS 0.0 10*3/uL Normal 0.0-0.2 [facility] Comment on above: Performed By: #### 5 0103 ####[facility] ABS NEUTROPHILS 3.2 10*3/uL Normal 1.6-7.6 [facility] Comment on above: Performed By: #### 5 0103 ####[facility] Basophils (Bld) [#/Vol] 0.0 10*3/uL Normal 0.0-0.2 [facility] Comment on above: Performed By: #### 5 0103 ####[facility] [place] [address], [facility] Basophils/100 WBC (Bld) 0.8 % Normal 0.0-1.0 [facility] Comment on above: Performed By: #### 5 0103 ####[facility] [place] [address], [facility] Eosinophils (Bld) [#/Vol] 0.1 10*3/uL Normal 0.0-0.5 [facility] Comment on above: Performed By: #### 5 3 ####[facility] [place] [address], [facility] Eosinophils/100 WBC (Bld) 1.4 % Normal 0.0-6.0 [facility] Comment on above: Performed By: #### 5 3 ####[facility] Erythrocyte distribution width (RBC) [Ratio] 14.6 % Normal 11.5-15.0 [facility] Comment on above: Performed By: #### 5 3 ####[facility] Hematocrit (Bld) [Volume fraction] 28.6 % Low 39.0-50.0 [facility] Comment on above: Performed By: #### 5 3 ####[facility] Hemoglobin (Bld) [Mass/Vol] 9.0 g/dL Low 13.0-17.0 [facility] Comment on above: Performed By: #### 5 3 ####[facility] [place] [address], [facility] IMMATURE GRANS 0.2 % Normal 0.0-1.0 [facility] Comment on above: Performed By: #### 5 0103 ####[facility] Lymphocytes (Bld) [#/Vol] 1.2 10*3/uL Normal 1.2-4.0 [facility] Comment on above: Performed By: #### 3 ####[facility] Lymphocytes/100 WBC (Bld) 24.0 % Normal 20.0-45.0 [facility] Comment on above: Performed By: #### 102 ####[address] MCH (RBC) [Entitic mass] 28.0 pg Normal 27.0-33.0 [facility] Comment on above: Performed By: #### 102 ####[facility] MCHC (RBC) [Mass/Vol] 31.5 g/dL Low 32.0-35.0 [facility] Comment on above: Performed By: #### 3 ####[facility] [place] [address] MCV (RBC) [Entitic vol] 89.1 fL Normal 82.0-98.0 [facility] Comment on above: Performed By: #### 3 ####[facility] Monocytes (Bld) [#/Vol] 0.6 10*3/uL Normal 0.1-1.0 [facility] Comment on above: Performed By: #### 102 ####[facility] [place] [address] MONOS 11.1 % Normal 5.0-12.0 [facility] Comment on above: Performed By: #### 5 0103 ####[facility] [place] [address], [facility] Neutrophils/100 WBC (Bld) 62.5 % Normal 40.0-72.0 [facility] Comment on above: Performed By: #### 5 0103 ####[facility] [place] [address], [facility] Nucleated RBC/100 WBC (Bld) [Ratio] 0 % Normal 0-0 [facility] Comment on above: Performed By: #### 5 0103 ####[facility] [place] [address], [facility] PLAT CNT 176 10*3/uL Normal 150-400 [facility] Comment on above: Performed By: #### 5 0103 ####[facility] [place] [address], [facility] RBC (Bld) [#/Vol] 3.21 10*6/uL Low 4.20-5.70 [facility] Comment on above: Performed By: #### 5 0103 ####[facility] [place] [address], [facility] WBC (Bld) [#/Vol] 5.04 10*3/uL Normal 4.00-10.60 [facility] Comment on above: Performed By: #### 5 0103 ####[facility] MAGNESIUM BLOODon 08-20-2021 Magnesium [Mass/Vol] 1.8 mg/dL Low 1.9-2.7 [facility] Comment on above: Order Comment: No: D o not add to previous draw Performed By: #### 3 5200, 37530, 10222 ####[facility] POC GLUCOSE LABon 08-20-2021 Glucose [Mass/Vol] 134 mg/dL High 70-100 [facility] Comment on above: Performed By: #### 8 5499 ####[facility] PORTABLE CHEST 1 VIEWon 08-09 PORTABLE CHEST 1 VIEW Normal [facility] Comment on above: Order Comment: Infil trates TROPONIN-Ion 08-20-2021 Troponin I.cardiac [Mass/Vol] 0.01 ng/mL Normal 0.00-0.04 [facility] Comment on above: Order Comment: No: D o not add to previous draw Result Comment: REFE RENCE RANGES: 0.00 - 0.04 ng/ml NORMAL 0.05 - 0.50 ng/ml INDETERMINATE > 0.50 ng/ml CONSISTENT WITH AN M.I. Performed By: #### 3 5200, 34905, 87910 ####[facility] UFH HEPARIN ASSAYon 08-21-19 22 UNFRACTIONATED HEPARIN 0.36 IU/mL Normal 0.30-0.70 [facility] Comment on above: Result Comment: [place] roxaban and Apixaban will interfere with the anti Xa assay used tomonitor UFH and LMWH. Performed By: #### 3 0477, 43084 ####[facility] ANTI-BETA 2 GLYCOPROTEIN 1on 08-14-2021 ANTI B2GP1 IGG 0.3 g units Normal 0.0-19.9 [facility] Comment on above: Performed By: #### 9 0118, 31788 ####[facility] [place] [address], [facility] ANTI B2GP1 IGM 2.4 m units Normal 0.0-19.9 [facility] Comment on above: Performed By: #### 9 0118, 89849 ####[facility] ANTICARDIOLIPIN ANTIBODYon 0 08-14-2021 CARDIOLIPIN IGG 12.1 GPL Normal 0.0-22.9 [facility] Comment on above: Performed By: #### 9 0118, 70258 ####[facility] [place] [address], [facility] CARDIOLIPIN IGM 1.1 MPL Normal 0.0-10.9 [facility] Comment on above: Performed By: #### 9 0118, 53497 ####[facility] COMP METABOLIC PANELon 08-14 Albumin [Mass/Vol] 3.7 g/dL Normal 3.5-5.7 [facility] Comment on above: Performed By: #### 4 4396, 30778, 25634, 55468, 99790 ####[facility] [place] [address], [facility] ALKALINE PHOSPH 54 IU/L Normal 34-104 [facility] Comment on above: Performed By: #### 4 4396, 24549, 46908, 82536, 41115 ####[facility] [place] [address], [facility] ALT [Catalytic activity/Vol] 15 U/L Normal 7-52 [facility] Comment on above: Performed By: #### 4 4396, 93662, 06289, 17226, 61201 ####[facility] [place] [address], [facility] AST [Catalytic activity/Vol] 16 U/L Normal 13-39 [facility] Comment on above: Performed By: #### 4 4396, 93792, 39959, 06405, 49191 ####[facility] [id number], [facility] Bilirubin [Mass/Vol] 0.6 mg/dL Normal 0.3-1.0 [facility] Comment on above: Performed By: #### 4 4396, 41926, 96606, 17947, 19060 ####[facility] [place] [address], [facility] Calcium [Mass/Vol] 8.7 mg/dL Normal 8.6-10.3 [facility] Comment on above: Performed By: #### 4 4396, 94677, 30502, 48285, 42165 ####[facility] [place] [address], [place] Chloride [Moles/Vol] 108 mmol/L High 98-107 [facility] Comment on above: Performed By: #### 4 4396, 25760, 38802, 20282, 92857 ####[facility] [place] [address], [place] CO2 [Moles/Vol] 25 mmol/L Normal 21-31 [facility] Comment on above: Performed By: #### 4 4396, 45258, 43183, 68459, 66841 ####[facility] [place] [address], [facility] Creatinine [Mass/Vol] 0.77 mg/dL Normal 0.70-1.30 [facility] Comment on above: Performed By: #### 4 4396, 23884, 09647, 13997, 58104 ####[facility] [place] [address], [place] GFR/1.73 sq M.predicted among blacks MDRD (S/P/Bld) [Vol rate/Area] mL/min/{1.73_m2} Normal >60 [facility] Comment on above: Performed By: #### 4 4396, 19488, 79420, 49267, 35424 ####[facility] [place] [address], [place] GFR/1.73 sq M.predicted among non-blacks MDRD (S/P/Bld) [Vol rate/Area] mL/min/{1.73_m2} Normal >60 [facility] Comment on above: Performed By: #### 4 4396, 11878, 98709, 36587, 59313 ####[facility] [place] [address], [place] Glucose [Mass/Vol] 120 mg/dL High 70-100 [facility] Comment on above: Performed By: #### 4 4396, 22965, 61021, 62899, 20531 ####[facility] [place] [address], [place] Potassium [Moles/Vol] 4.3 mmol/L Normal 3.5-5.1 [facility] Comment on above: Performed By: #### 4 4396, 22994, 95818, 36736, 88328 ####[facility] [place] [address], [place] Protein [Mass/Vol] 6.5 g/dL Normal 6.0-8.3 [facility] Comment on above: Performed By: #### 4 4396, 81416, 59745, 95306, 36145 ####[facility] [place] [address], [place] Sodium [Moles/Vol] 140 mmol/L Normal 136-145 [facility] Comment on above: Performed By: #### 4 4396, 91573, 80819, 28902, 33438 ####[facility] [place] [address], [place] Urea nitrogen [Mass/Vol] 21 mg/dL Normal 7-25 [facility] Comment on above: Performed By: #### 4 4396, 03952, 91570, 03467, 22745 ####[facility] [place] [address], [place] CYCLIC CITRULLINATED PEPTIDE AB [id number] 08-14-2021 CYCLIC CIT PEP 5 Units Normal 0-19 [facility] Comment on above: Result Comment: INTE RPRETIVE [...] results should bemonitored and testing repeated.Performed By: [email or web address] [place] [id number] Director: Liz Gamble MD FREE T4on 08-14-2021 Free T4 [Mass/Vol] 0.97 ng/dL Normal 0.71-1.85 [facility] Comment on above: Performed By: #### 4 4396, 13377, 59758, 74022, 55134 ####[facility] [place] [address], [facility] MAGNESIUM BLOODon 08-14-2021 Magnesium [Mass/Vol] 1.6 mg/dL Low 1.9-2.7 [facility] Comment on above: Performed By: #### 4 4396, 60535, 24977, 78669, 85432 ####[facility] [place] [address], [facility] PHOSPHATIDYLSERINE ANTIBODIE S, IGG AND IGM [id number] 08-14-2021 PHOSPHATIDYLSERINE ANTIBODY IGG 0 GPS Normal 0-15 [facility] Comment on above: Result Comment: INTE RPRETIVE INFORMATION: Phosphatidylserine Ab, IgGIgG and/or IgM antibodies to phosphatidylserine (aPS) maybe associated with a positive test for anti-cardiolipinautoantibodies (aCL) and risk for obstetricantiphospholipid syndrome (APS). Strong clinicalcorrelation is recommended in the absence of lupusanticoagulant, IgG and/or IgM cardiolipin and/or [id number] antibodies.Isolated presence of IgM or IgG antibodies [...] ANTIBODY IGM 0 MPS Normal 0-21 [facility] Comment on above: Result Comment: INTE RPRETIVE INFORMATION: Phosphatidylserine Ab, IgMThe presence of IgG and/or IgM antibodies tophosphatidylserine (aPS) may be associated with a positivetest for anti-cardiolipin autoantibodies (aCL) and risk forobstetric antiphospholipid syndrome (APS). Strong clinicalcorrelation is recommended in the absence of lupusanticoagulant, IgG and/or IgM cardiolipin and/or [id number] antibodies.Isolated presence of IgM or IgG antibodies to aPS may havequestionable clinical significance for APS and/or SLE.If results are positive, repeat testing with two or morespecimens drawn at least 12 weeks apart to demonstratepersistence of antibodies.Results should not be used alone for diagnosis and must beinterpreted in light of APS-specific clinicalmanifestations and/or other criteria phospholipid antibodytests.Performed By: [email or web address] [place] [address] [id number] Director: Liz Gamble MD PHOSPHORUS BLOODon 2 Phosphate [Mass/Vol] 3.9 mg/dL Normal 2.5-5.0 [facility] Comment on above: Performed By: #### 4 6981, 93377, 55087, 73847, 45400 ####[facility] [place] [address], [facility] RHEUMATOID FACTOR SERUMon RA <20 Normal 0-20 [facility] Comment on above: Performed By: #### 1 0204 ####[facility] [place] [address], [facility] TSH3on 08-14-2021 TSH 3RD GENERATION 1.76 uIU/mL Normal 0.34-5.60 [facility] Comment on above: Performed By: #### 4 4396, 48941, 85513, 37702, 84762 ####[facility] [place] [address], [facility] UA,MICROSCOPIC REQUIREDon Appearance (U) CLEAR Normal CLEAR [facility] Comment on above: Performed By: #### 9 0150 ####[facility] [place] [address], [facility] Bilirubin Ql (U) Negative Normal NEGATIVE [facility] Comment on above: Performed By: #### 9 0150 ####[facility] [place] [address], [facility] Color (U) STRAW Abnormal YELLOW [facility] Comment on above: Performed By: #### 9 0150 ####[facility] [place] [address], [facility] EPIS NONE SEEN Normal FEW,OCC,NONE SEEN [facility] Comment on above: Performed By: #### 9 0150 ####[facility] [place] [address], [facility] Glucose Ql (U) Negative Normal NEGATIVE [facility] Comment on above: Performed By: #### 9 0150 ####[facility] [place] [address], [place] Hemoglobin Ql (U) SMALL Abnormal NEGATIVE [facility] Comment on above: Performed By: #### 9 0150 ####[facility] [place] [address], [place] KETONE Negative Normal NEGATIVE [facility] Comment on above: Performed By: #### 9 0150 ####[facility] [place] [address], [facility] LEUK ROMEO Negative Normal NEGATIVE [facility] Comment on above: Performed By: #### 9 0150 ####[facility] [facility] [place] [address], [facility] Nitrite Ql (U) Negative Normal NEGATIVE [facility] Comment on above: Performed By: #### 9 0150 ####[facility] [place] [address], [facility] pH (U) 5.0 [pH] Normal 5.0-8.0 [facility] Comment on above: Performed By: #### 9 0150 ####[facility] [place] [address], [facility] Protein Ql (U) Negative Normal NEGATIVE [facility] Comment on above: Performed By: #### 9 0150 ####[facility] RBC 0-2 Abnormal NONE SEEN [facility] Comment on above: Performed By: #### 9 0150 ####[facility], [place] [id number] [place] [address] SPEC GRAV 1.010 Low 1.015-1.020 [facility] Comment on above: Performed By: #### 9 0150 ####[facility] [place] [address], [facility] WBC UA 0-2 Abnormal NONE SEEN [facility] Comment on above: Performed By: #### 9 0150 ####[facility], [place] [address] [place] [address] PROF CHEM 8 (BAS METB)on Anion gap [Moles/Vol] 9.2 mmol/L Normal [facility] Comment on above: Performed By: #### C BC #### [facility] [address] [address] [address] Terrence Paige Calcium [Mass/Vol] 8.5 mg/dL Normal 8.5-10.1 [facility] Comment on above: Performed By: #### C BC #### [facility] [address] [address] [address] Terrence Paige Chloride [Moles/Vol] 105 mmol/L Normal 98-107 [facility] Comment on above: Performed By: #### C BC #### [facility] [address] [address] [address] Terrence Paige CO2 [Moles/Vol] 29.7 mmol/L Normal 22.0-30.0 [facility] Comment on above: Performed By: #### C BC #### [facility] [address] [address] [address] Terrence Paige Creatinine [Mass/Vol] 0.92 mg/dL Normal 0.66-1.25 [facility] Comment on above: Performed By: #### C BC #### [facility] [address] [address] [address] Terrence Paige EGFR-AF [place]I >60 Normal >=60 [facility] Comment on above: Performed By: #### C BC #### [facility] [address] [address] [address] Terrence Paige EGFR-NON AF [place] >60 Normal >=60 [facility] Comment on above: Performed By: #### C BC #### [facility] [address] [address] [address] Terrence Paige Glucose [Mass/Vol] 192 mg/dL Critically high 74-106 [facility] Comment on above: Performed By: #### C BC #### [facility] [address] [address] [address] Terrence Paige Potassium [Moles/Vol] 4.9 mmol/L Normal 3.4-5.0 [facility] Comment on above: Performed By: #### C BC #### [facility] [address] [address] [address] Terrence Paige Sodium [Moles/Vol] 139 mmol/L Normal 137-145 [facility] Comment on above: Performed By: #### C BC #### [facility] [address] [address] [address] Terrence Paige Urea nitrogen [Mass/Vol] 22.0 mg/dL Critically high 7.0-18.0 [facility] Comment on above: Performed By: #### C BC #### [facility] [address] [address] [address] Terrence Paige Urea nitrogen/Creatinine [Mass ratio] 23.9 mg/mg Normal [facility] Comment on above: Performed By: #### C BC #### [facility] [address] [address] [address] Terrence Paige BASIC METABOLIC PANELon 07-09 Calcium [Mass/Vol] 9.3 mg/dL Normal 8.6-10.3 [facility] Comment on above: Order Comment: No: D o not add to previous draw Performed By: #### 1 69, 03926 ####[facility] [place] [address], [facility] Chloride [Moles/Vol] 94 mmol/L Low 98-107 [facility] Comment on above: Order Comment: No: D o not add to previous draw Performed By: #### 1 69, 80552 ####[facility] [place] [address], [place] CO2 [Moles/Vol] 29 mmol/L Normal 21-31 [facility] Comment on above: Order Comment: No: D o not add to previous draw Performed By: #### 1 69, 47829 ####[facility] [id number], [facility] Creatinine [Mass/Vol] 1.01 mg/dL Normal 0.70-1.30 [facility] Comment on above: Order Comment: No: D o not add to previous draw Performed By: #### 1 69, 72497 ####[facility] [place] [address], [place] GFR/1.73 sq M.predicted among blacks MDRD (S/P/Bld) [Vol rate/Area] mL/min/{1.73_m2} Normal >60 [facility] Comment on above: Order Comment: No: D o not add to previous draw Performed By: #### 1 69, 25666 ####[facility] [place] [address], [place] GFR/1.73 sq M.predicted among non-blacks MDRD (S/P/Bld) [Vol rate/Area] mL/min/{1.73_m2} Normal >60 [facility] Comment on above: Order Comment: No: D o not add to previous draw Performed By: #### 1 69, 82843 ####[facility] [place] [address], [place] Glucose [Mass/Vol] 176 mg/dL High 70-100 [facility] Comment on above: Order Comment: No: D o not add to previous draw Performed By: #### 1 69, 86576 ####[facility] [place] [address], [place] Potassium [Moles/Vol] 3.8 mmol/L Normal 3.5-5.1 [facility] Comment on above: Order Comment: No: D o not add to previous draw Performed By: #### 1 69, 71634 ####[facility] [place] [address], [place] Sodium [Moles/Vol] 133 mmol/L Low 136-145 [facility] Comment on above: Order Comment: No: D o not add to previous draw Performed By: #### 1 69, 43509 ####[facility] [place] [address], [place] Urea nitrogen [Mass/Vol] 55 mg/dL High 7-25 [facility] Comment on above: Order Comment: No: D o not add to previous draw Performed By: #### 1 0070, 53458 ####[facility] CBC COMPLETE BLOOD COUNTon 0 07-25-2021 Erythrocyte distribution width (RBC) [Ratio] 14.4 % Normal 11.5-15.0 [facility] Comment on above: Order Comment: No: D o not add to previous draw Performed By: #### 5 0608 ####[facility] Hematocrit (Bld) [Volume fraction] 32.0 % Low 39.0-50.0 [facility] Comment on above: Order Comment: No: D o not add to previous draw Performed By: #### 5 0608 ####[facility] Hemoglobin (Bld) [Mass/Vol] 10.5 g/dL Low 13.0-17.0 [facility] Comment on above: Order Comment: No: D o not add to previous draw Performed By: #### 5 0608 ####[place] [address] MCH (RBC) [Entitic mass] 27.5 pg Normal 27.0-33.0 [facility] Comment on above: Order Comment: No: D o not add to previous draw Performed By: #### 5 0608 ####[facility] [place] [address], [facility] MCHC (RBC) [Mass/Vol] 32.8 g/dL Normal 32.0-35.0 [facility] Comment on above: Order Comment: No: D o not add to previous draw Performed By: #### 5 0608 ####[address] [place] [address], [place] MCV (RBC) [Entitic vol] 83.8 fL Normal 82.0-98.0 [facility] Comment on above: Order Comment: No: D o not add to previous draw Performed By: #### 5 0608 ####[address] Nucleated RBC/100 WBC (Bld) [Ratio] 0 % Normal 0-0 [facility] Comment on above: Order Comment: No: D o not add to previous draw Performed By: #### 5 0608 ####[address] PLAT CNT 199 10*3/uL Normal 150-400 [facility] Comment on above: Order Comment: No: D o not add to previous draw Performed By: #### 5 0608 ####[address] RBC (Bld) [#/Vol] 3.82 10*6/uL Low 4.20-5.70 [facility] Comment on above: Order Comment: No: D o not add to previous draw Performed By: #### 5 0608 ####[address] WBC (Bld) [#/Vol] 6.05 10*3/uL Normal 4.00-10.60 [facility] Comment on above: Order Comment: No: D o not add to previous draw Performed By: #### 5 0608 ####[address] HIV1 AND 2 COMBO 4Gon 2021 HIV COMBO Negative Normal NEGATIVE [facility] Comment on above: Order Comment: add t o previous labs if possiblePt refused. Mike cerna. Performed By: #### 3 0625 ####[address] [place] [address], [facility] MAGNESIUM BLOODon 07-25-2021 Magnesium [Mass/Vol] 2.4 mg/dL Normal 1.9-2.7 [facility] Comment on above: Order Comment: No: D o not add to previous draw Performed By: #### 1 0070, 68137 ####[facility] [place] [address], [facility] POC GLUCOSE LABon 07-25-2021 Glucose [Mass/Vol] 195 mg/dL High 70-100 [facility] Comment on above: Performed By: #### 8 5499 ####[facility] [place] [address], [facility] BASIC METABOLIC PANELon 07-09 Calcium [Mass/Vol] 8.8 mg/dL Normal 8.6-10.3 [facility] Comment on above: Order Comment: No: D o not add to previous draw Performed By: #### 0 0071, 22312 ####[facility] [facility] [place] [address], [facility] Chloride [Moles/Vol] 95 mmol/L Low 98-107 [facility] Comment on above: Order Comment: No: D o not add to previous draw Performed By: #### 0 0071, 73375 ####[facility] [facility] [place] [address], [facility] CO2 [Moles/Vol] 27 mmol/L Normal 21-31 [facility] Comment on above: Order Comment: No: D o not add to previous draw Performed By: #### 0 0071, 23665 ####[facility] [facility] [address], [facility] Creatinine [Mass/Vol] 1.16 mg/dL Normal 0.70-1.30 [facility] Comment on above: Order Comment: No: D o not add to previous draw Performed By: #### 0 0071, 32009 ####[facility] [place] [address], [place] GFR/1.73 sq M.predicted among blacks MDRD (S/P/Bld) [Vol rate/Area] mL/min/{1.73_m2} Normal >60 [facility] Comment on above: Order Comment: No: D o not add to previous draw Performed By: #### 0 0071, 24775 ####[facility] [place] [address], [place] GFR/1.73 sq M.predicted among non-blacks MDRD (S/P/Bld) [Vol rate/Area] mL/min/{1.73_m2} Normal >60 [facility] Comment on above: Order Comment: No: D o not add to previous draw Performed By: #### 0 0071, 35111 ####[facility] [place] [address], [facility] Glucose [Mass/Vol] 183 mg/dL High 70-100 [facility] Comment on above: Order Comment: No: D o not add to previous draw Performed By: #### 0 0071, 84591 ####[facility] [place] [address], [facility] Potassium [Moles/Vol] 3.7 mmol/L Normal 3.5-5.1 [facility] Comment on above: Order Comment: No: D o not add to previous draw Performed By: #### 0 0071, 20233 ####[facility] [place] [address], [place] Sodium [Moles/Vol] 134 mmol/L Low 136-145 [facility] Comment on above: Order Comment: No: D o not add to previous draw Performed By: #### 0 0071, 71024 ####[facility] [place] [address], [place] Urea nitrogen [Mass/Vol] 63 mg/dL High 7-25 [facility] Comment on above: Order Comment: No: D o not add to previous draw Performed By: #### 0 0071, 50542 ####[facility] CBC COMPLETE BLOOD COUNTon 0 07-24-2021 Erythrocyte distribution width (RBC) [Ratio] 14.8 % Normal 11.5-15.0 [facility] Comment on above: Order Comment: No: D o not add to previous draw Performed By: #### 5 0608 ####[facility] Hematocrit (Bld) [Volume fraction] 30.6 % Low 39.0-50.0 [facility] Comment on above: Order Comment: No: D o not add to previous draw Performed By: #### 5 0608 ####[facility] Hemoglobin (Bld) [Mass/Vol] 10.3 g/dL Low 13.0-17.0 [facility] Comment on above: Order Comment: No: D o not add to previous draw Performed By: #### 5 0608 ####[facility] [place] [address], [facility] MCH (RBC) [Entitic mass] 27.9 pg Normal 27.0-33.0 [facility] Comment on above: Order Comment: No: D o not add to previous draw Performed By: #### 5 0608 ####[facility] [place] [address], [facility] MCHC (RBC) [Mass/Vol] 33.7 g/dL Normal 32.0-35.0 [facility] Comment on above: Order Comment: No: D o not add to previous draw Performed By: #### 5 0608 ####[facility] [place] [address], [place] MCV (RBC) [Entitic vol] 82.9 fL Normal 82.0-98.0 [facility] Comment on above: Order Comment: No: D o not add to previous draw Performed By: #### 5 0608 ####[facility] [place] [address], [facility] Nucleated RBC/100 WBC (Bld) [Ratio] 0 % Normal 0-0 [facility] Comment on above: Order Comment: No: D o not add to previous draw Performed By: #### 5 0608 ####[facility] [place] [address], [facility] PLAT CNT 240 10*3/uL Normal 150-400 [facility] Comment on above: Order Comment: No: D o not add to previous draw Performed By: #### 5 0608 ####[address] [address] [place] [address], [facility] RBC (Bld) [#/Vol] 3.69 10*6/uL Low 4.20-5.70 [facility] Comment on above: Order Comment: No: D o not add to previous draw Performed By: #### 5 0608 ####[facility] [place] [address], [facility] WBC (Bld) [#/Vol] 6.04 10*3/uL Normal 4.00-10.60 [facility] Comment on above: Order Comment: No: D o not add to previous draw Performed By: #### 5 0608 ####[facility] [place] [address], [facility] MAGNESIUM BLOODon 07-24-2021 Magnesium [Mass/Vol] 2.6 mg/dL Normal 1.9-2.7 [facility] Comment on above: Order Comment: No: D o not add to previous draw Performed By: #### 0 0071, 46563 ####[facility] [place] [address], [facility] POC GLUCOSE LABon 07-24-2021 Glucose [Mass/Vol] 319 mg/dL High 70-100 [facility] Comment on above: Performed By: #### 8 5499 ####[facility] [place] [address], [facility] Glucose [Mass/Vol] 222 mg/dL High 70-100 [facility] Comment on above: Performed By: #### 8 5499 ####[facility] [facility] [place] [address], [facility] Glucose [Mass/Vol] 246 mg/dL High 70-100 [facility] Comment on above: Performed By: #### 8 5499 ####[facility] [place] [address], [facility] Glucose [Mass/Vol] 172 mg/dL High 70-100 [facility] Comment on above: Performed By: #### 8 5499 ####[facility] [place] [address], [facility] APTTon 07-23-2021 aPTT Coag (Bld) [Time] 66.9 s High 25.0-35.0 [facility] Comment on above: Order Comment: No: D [...] THIS PURPOSE. Performed By: #### 5 7307 ####[facility] [place] [address], [facility] aPTT Coag (Bld) [Time] 75.0 s Critically high 25.0-35.0 [facility] Comment on above: Order Comment: No: D [...] THIS PURPOSE. Performed By: #### 5 7307, 61749 ####[facility] BASIC METABOLIC PANELon - Calcium [Mass/Vol] 9.1 mg/dL Normal 8.6-10.3 [facility] Comment on above: Order Comment: No: D o not add to previous draw Performed By: #### 0 0071, 46751 ####[place] [address] [facility] [address], [facility] Chloride [Moles/Vol] 90 mmol/L Low 98-107 [facility] Comment on above: Order Comment: No: D o not add to previous draw Performed By: #### 0 0071, 38061 ####[facility] [place] [address], [facility] CO2 [Moles/Vol] 31 mmol/L Normal 21-31 [facility] Comment on above: Order Comment: No: D o not add to previous draw Performed By: #### 0 0071, 34261 ####[facility] [place] [address], [facility] Creatinine [Mass/Vol] 1.47 mg/dL High 0.70-1.30 [facility] Comment on above: Order Comment: No: D o not add to previous draw Performed By: #### 0 0071, 89169 ####[facility] eGFR- 59 ml/min/1.73sq m Abnormal >60 [facility] Comment on above: Order Comment: No: D o not add to previous draw Performed By: #### 0 0071, 39088 ####[facility] eGFR- non- 49 ml/min/1.73sq m Abnormal >60 [facility] Comment on above: Order Comment: No: D o not add to previous draw Performed By: #### 0 0071, 51461 ####[facility] [facility] Glucose [Mass/Vol] 217 mg/dL High 70-100 [facility] Comment on above: Order Comment: No: D o not add to previous draw Performed By: #### 0 0071, 19035 ####[facility] [place] [address], [facility] Potassium [Moles/Vol] 3.7 mmol/L Normal 3.5-5.1 [facility] Comment on above: Order Comment: No: D o not add to previous draw Performed By: #### 0 0071, 84323 ####[facility] [place] [address], [facility] Sodium [Moles/Vol] 132 mmol/L Low 136-145 [facility] Comment on above: Order Comment: No: D o not add to previous draw Performed By: #### 0 0071, 82888 ####[facility] [place] [address], [facility] Urea nitrogen [Mass/Vol] 76 mg/dL High 7-25 [facility] Comment on above: Order Comment: No: D o not add to previous draw Performed By: #### 0 0071, 98097 ####[facility] [facility] CBC COMPLETE BLOOD COUNTon 0 - Erythrocyte distribution width (RBC) [Ratio] 14.7 % Normal 11.5-15.0 [facility] Comment on above: Order Comment: No: D o not add to previous draw Performed By: #### 5 0608 ####[facility] Hematocrit (Bld) [Volume fraction] 35.5 % Low 39.0-50.0 [facility] Comment on above: Order Comment: No: D o not add to previous draw Performed By: #### 5 0608 ####[facility] Hemoglobin (Bld) [Mass/Vol] 11.5 g/dL Low 13.0-17.0 [facility] Comment on above: Order Comment: No: D o not add to previous draw Performed By: #### 5 0608 ####[place] [address] MCH (RBC) [Entitic mass] 27.4 pg Normal 27.0-33.0 [facility] Comment on above: Order Comment: No: D o not add to previous draw Performed By: #### 5 0608 ####[place] [address] MCHC (RBC) [Mass/Vol] 32.4 g/dL Normal 32.0-35.0 [facility] Comment on above: Order Comment: No: D o not add to previous draw Performed By: #### 5 0608 ####[facility] [place] [address].[address] MCV (RBC) [Entitic vol] 84.7 fL Normal 82.0-98.0 [facility] Comment on above: Order Comment: No: D o not add to previous draw Performed By: #### 5 0608 ####[place] [address] Nucleated RBC/100 WBC (Bld) [Ratio] 0 % Normal 0-0 [facility] Comment on above: Order Comment: No: D o not add to previous draw Performed By: #### 5 0608 ####[facility] [place] [address], [facility] PLAT CNT 276 10*3/uL Normal 150-400 [facility] Comment on above: Order Comment: No: D o not add to previous draw Performed By: #### 5 0608 ####[facility] RBC (Bld) [#/Vol] 4.19 10*6/uL Low 4.20-5.70 [facility] Comment on above: Order Comment: No: D o not add to previous draw Performed By: #### 5 0608 ####[facility] .[place] [address], [facility] WBC (Bld) [#/Vol] 8.21 10*3/uL Normal 4.00-10.60 [facility] Comment on above: Order Comment: No: D o not add to previous draw Performed By: #### 5 0608 ####[facility] ABDOMEN AND PELVIS WO CON TRASTon 07-23-2021 CT ABDOMEN AND PELVIS WO CONTRAST Normal [facility] Comment on above: Order Comment: Fluid Collection, abdominal firmness CT LUMBAR SPINE WO CONTRASTo n 07-23-2021 CT LUMBAR SPINE WO CONTRAST Normal [facility] Comment on above: Order Comment: Osteo myeomyelitis CT THORACIC SPINE WITHOUT CO NTRASTon 07-23-2021 CT THORACIC SPINE WITHOUT CONTRAST Normal [facility] Comment on above: Order Comment: Osteo myeomyelitis MAGNESIUM BLOODon 07-23-2021 Magnesium [Mass/Vol] 2.4 mg/dL Normal 1.9-2.7 [facility] Comment on above: Order Comment: No: D o not add to previous draw Performed By: #### 0 0071, 24931 ####[facility] [place] [address], [facility] POC GLUCOSE LABon 07-23-2021 Glucose [Mass/Vol] 147 mg/dL High 70-100 [facility] Comment on above: Performed By: #### 8 5499 ####[facility] [place] [address], [place] Glucose [Mass/Vol] 164 mg/dL High 70-100 [facility] Comment on above: Performed By: #### 8 5499 ####[facility] [place] [address], [place] Glucose [Mass/Vol] 192 mg/dL High 70-100 [facility] Comment on above: Performed By: #### 8 5499 ####[facility] [place] [address], [place] Glucose [Mass/Vol] 215 mg/dL High 70-100 [facility] Comment on above: Performed By: #### 8 5499 ####[facility] [place] [address], [facility] UFH HEPARIN ASSAYon 07-24-19 UNFRACTIONATED HEPARIN 0.38 IU/mL Normal 0.30-0.70 [facility] Comment on above: Order Comment: ADDED PER PROTOCOL Result Comment: Kylie roxaban and Apixaban will interfere with the anti Xa assay used tomonitor UFH and LMWH. Performed By: #### 5 7307, 09069 ####[facility] [place] [address], [facility] APTTon 07-22-2021 aPTT Coag (Bld) [Time] 38.6 s High 25.0-35.0 [facility] Comment on above: Order Comment: No: D [...] THIS PURPOSE. Performed By: #### 5 7307 ####[facility] [place] [address], [facility] aPTT Coag (Bld) [Time] 98.6 s Critically high 25.0-35.0 [facility] Comment on above: Order Comment: No: D o not add to previous draw Result Comment: Resu lt checked and called. Accurately read back by Samara Thakur RN 07-22-21 at 1500.Clinical significance of the PTT result is questionable in the presenceof Heparin. Performed By: #### 5 7307 ####[place] [address] [address], [facility] aPTT Coag (Bld) [Time] 135.0 s Critically high 25.0-35.0 [facility] Comment on above: Order Comment: No: D o not add to previous draw Result Comment: Resu lt checked and called. Accurately read back by Summer Jensen@06 Performed By: #### 5 7307 ####[place] [address] BASIC METABOLIC PANELon 07-09 Calcium [Mass/Vol] 8.6 mg/dL Normal 8.6-10.3 [facility] Comment on above: Order Comment: No: D o not add to previous draw Performed By: #### 4 1000, 22772, 42450, 63668 ####[facility] [place] [address], [facility] Chloride [Moles/Vol] 90 mmol/L Low 98-107 [facility] Comment on above: Order Comment: No: D o not add to previous draw Performed By: #### 4 1000, 52276, 09526, 97220 ####[facility] [place] [address], [place] CO2 [Moles/Vol] 29 mmol/L Normal 21-31 [facility] Comment on above: Order Comment: No: D o not add to previous draw Performed By: #### 4 1000, 25406, 14004, 06226 ####[facility] Creatinine [Mass/Vol] 2.10 mg/dL High 0.70-1.30 [facility] Comment on above: Order Comment: No: D o not add to previous draw Performed By: #### 4 1000, 94108, 58251, 59685 ####[facility] [facility] eGFR- 39 ml/min/1.73sq m Abnormal >60 [facility] Comment on above: Order Comment: No: D o not add to previous draw Performed By: #### 4 1000, 18398, 97769, 86337 ####[facility] [facility] eGFR- non- 32 ml/min/1.73sq m Abnormal >60 [facility] Comment on above: Order Comment: No: D o not add to previous draw Performed By: #### 4 1000, 56156, 70292, 61240 ####[facility] [facility] Glucose [Mass/Vol] 156 mg/dL High 70-100 [facility] Comment on above: Order Comment: No: D o not add to previous draw Performed By: #### 4 1000, 96690, 65383, 05388 ####[facility] [place] [address], [facility] Potassium [Moles/Vol] 3.3 mmol/L Low 3.5-5.1 [facility] Comment on above: Order Comment: No: D o not add to previous draw Performed By: #### 4 1000, 43473, 87798, 16709 ####[facility] Sodium [Moles/Vol] 132 mmol/L Low 136-145 [facility] Comment on above: Order Comment: No: D o not add to previous draw Performed By: #### 4 1000, 79856, 92294, 97014 ####[facility] Urea nitrogen [Mass/Vol] 86 mg/dL High 7-25 [facility] Comment on above: Order Comment: No: D o not add to previous draw Performed By: #### 4 1000, 00868, 79798, 99735 ####[facility] [facility] C REACTIVE PROTEINon 022 CRP [Mass/Vol] 79.5 mg/L High 0.0-7.0 [facility] Comment on above: Order Comment: Yes: Add to Previous draw if able Performed By: #### 6 1405 ####[facility] CBC COMPLETE BLOOD COUNTon 0 07-22-2021 Erythrocyte distribution width (RBC) [Ratio] 15.2 % High 11.5-15.0 [facility] Comment on above: Order Comment: No: D o not add to previous draw Performed By: #### 5 0608 ####[facility] Hematocrit (Bld) [Volume fraction] 32.7 % Low 39.0-50.0 [facility] Comment on above: Order Comment: No: D o not add to previous draw Performed By: #### 5 0608 ####[facility] Hemoglobin (Bld) [Mass/Vol] 11.0 g/dL Low 13.0-17.0 [facility] Comment on above: Order Comment: No: D o not add to previous draw Performed By: #### 5 0608 ####[facility] MCH (RBC) [Entitic mass] 27.6 pg Normal 27.0-33.0 [facility] Comment on above: Order Comment: No: D o not add to previous draw Performed By: #### 5 0608 ####[facility] MCHC (RBC) [Mass/Vol] 33.6 g/dL Normal 32.0-35.0 [facility] Comment on above: Order Comment: No: D o not add to previous draw Performed By: #### 5 0608 ####[address] MCV (RBC) [Entitic vol] 82.2 fL Normal 82.0-98.0 [facility] Comment on above: Order Comment: No: D o not add to previous draw Performed By: #### 5 0608 ####[place] [address] Nucleated RBC/100 WBC (Bld) [Ratio] 0 % Normal 0-0 [facility] Comment on above: Order Comment: No: D o not add to previous draw Performed By: #### 5 0608 ####[facility] PLAT CNT 251 10*3/uL Normal 150-400 [facility] Comment on above: Order Comment: No: D o not add to previous draw Performed By: #### 5 0608 ####[address] RBC (Bld) [#/Vol] 3.98 10*6/uL Low 4.20-5.70 [facility] Comment on above: Order Comment: No: D o not add to previous draw Performed By: #### 5 0608 ####[facility] [place] [address], [facility] WBC (Bld) [#/Vol] 9.26 10*3/uL Normal 4.00-10.60 [facility] Comment on above: Order Comment: No: D o not add to previous draw Performed By: #### 5 0608 ####[facility] [place] [address], [facility] MAGNESIUM BLOODon 07-22-2021 Magnesium [Mass/Vol] 2.3 mg/dL Normal 1.9-2.7 [facility] Comment on above: Order Comment: No: D o not add to previous draw Performed By: #### 4 1000, 71560, 55442, 88226 ####[facility] [place] [address], [facility] PHOSPHORUS BLOODon Phosphate [Mass/Vol] 5.5 mg/dL High 2.5-5.0 [facility] Comment on above: Order Comment: No: D o not add to previous draw Performed By: #### 4 1000, 79334, 83295, 53340 ####[facility] [place] [address], [facility] POC GLUCOSE LABon 07-22-2021 Glucose [Mass/Vol] 260 mg/dL High 70-100 [facility] Comment on above: Performed By: #### 8 5499 ####[facility] [place] [address], [place] Glucose [Mass/Vol] 171 mg/dL High 70-100 [facility] Comment on above: Performed By: #### 8 5499 ####[facility] [place] [address], [place] Glucose [Mass/Vol] 186 mg/dL High 70-100 [facility] Comment on above: Performed By: #### 8 5499 ####[facility] Glucose [Mass/Vol] 178 mg/dL High 70-100 [facility] Comment on above: Performed By: #### 8 5499 ####[facility] SEDIMENTATION RATEon 022 SED RATE 100 mm/hr High 0-10 [facility] Comment on above: Order Comment: Yes: Add to Previous draw if able Performed By: #### 5 6506 ####[facility] VANCOMYCIN TIMEDon VANCOMYCIN TIMED 14.2 mcg/mL Normal [facility] Comment on above: Performed By: #### 4 1000, 64127, 92497, 58177 ####[facility] *BLOOD CULTUREon 07-21-2021 *BLOOD CULTURE Clinical Report: (D) Specimen: BLOOD CULTURE Collected: 07/21/2021 11:20 Status: Final Last Updated: 07/27/2021 06:23 CULT RES (Final) No Growth Day 5 Normal [facility] Comment on above: Performed By: #### 3 0313 ####[facility] APTTon 07-21-2021 aPTT Coag (Bld) [Time] 77.4 s Critically high 25.0-35.0 [facility] Comment on above: Order Comment: No: D o not add to previous draw Result Comment: CLIN ICAL SIGNIFICANCE OF THE PTT RESULT IS QUESTIONABLE IN THE PRESENCEOF HEPARIN.RESULTS CHECKED AND CALLED. ACCURATELY READ BACK BY SAMARA THAKUR RN @[id number] Performed By: #### 3 0477, 88616 ####[facility] BASIC METABOLIC PANELon 03- Calcium [Mass/Vol] 8.6 mg/dL Normal 8.6-10.3 [facility] Comment on above: Order Comment: No: D o not add to previous draw Performed By: #### 0 0071, 04306 ####[facility] [place] [address], [place] Chloride [Moles/Vol] 90 mmol/L Low 98-107 [facility] Comment on above: Order Comment: No: D o not add to previous draw Performed By: #### 0 0071, 13845 ####[facility] [place] [address], [place] CO2 [Moles/Vol] 27 mmol/L Normal 21-31 [facility] Comment on above: Order Comment: No: D o not add to previous draw Performed By: #### 0 0071, 28454 ####[facility] [place] [address], [place] Creatinine [Mass/Vol] 1.89 mg/dL High 0.70-1.30 [facility] Comment on above: Order Comment: No: D o not add to previous draw Performed By: #### 0 0071, 96737 ####[facility] [place] [address], [place] eGFR- 44 ml/min/1.73sq m Abnormal >60 [facility] Comment on above: Order Comment: No: D o not add to previous draw Performed By: #### 0 0071, 92088 ####[facility] [place] [address], [place] eGFR- non- 37 ml/min/1.73sq m Abnormal >60 [facility] Comment on above: Order Comment: No: D o not add to previous draw Performed By: #### 0 0071, 21089 ####[facility] [place] [address], [place] Glucose [Mass/Vol] 180 mg/dL High 70-100 [facility] Comment on above: Order Comment: No: D o not add to previous draw Performed By: #### 0 0071, 76787 ####[facility] [place] [address], [facility] Potassium [Moles/Vol] 3.5 mmol/L Normal 3.5-5.1 [facility] Comment on above: Order Comment: No: D o not add to previous draw Performed By: #### 0 0071, 47053 ####[facility] [place] [address], [facility] Sodium [Moles/Vol] 130 mmol/L Low 136-145 [facility] Comment on above: Order Comment: No: D o not add to previous draw Performed By: #### 0 0071, 01201 ####[facility] [facility] [address], [facility] Urea nitrogen [Mass/Vol] 78 mg/dL High 7-25 [facility] Comment on above: Order Comment: No: D o not add to previous draw Performed By: #### 0 0071, 09242 ####[facility] [facility] C REACTIVE PROTEINon 022 CRP [Mass/Vol] 55.2 mg/L High 0.0-7.0 [facility] Comment on above: Order Comment: No: D o not add to previous draw Performed By: #### 6 1405 ####[facility] CBC COMPLETE BLOOD COUNTon 0 07-21-2021 Erythrocyte distribution width (RBC) [Ratio] 15.1 % High 11.5-15.0 [facility] Comment on above: Order Comment: No: D o not add to previous draw Performed By: #### 5 0608 ####[facility] Hematocrit (Bld) [Volume fraction] 33.4 % Low 39.0-50.0 [facility] Comment on above: Order Comment: No: D o not add to previous draw Performed By: #### 5 0608 ####[address] Hemoglobin (Bld) [Mass/Vol] 10.9 g/dL Low 13.0-17.0 [facility] Comment on above: Order Comment: No: D o not add to previous draw Performed By: #### 5 0608 ####[address] MCH (RBC) [Entitic mass] 27.5 pg Normal 27.0-33.0 [facility] Comment on above: Order Comment: No: D o not add to previous draw Performed By: #### 5 0608 ####[address] MCHC (RBC) [Mass/Vol] 32.6 g/dL Normal 32.0-35.0 [facility] Comment on above: Order Comment: No: D o not add to previous draw Performed By: #### 5 0608 ####[address] MCV (RBC) [Entitic vol] 84.1 fL Normal 82.0-98.0 [facility] Comment on above: Order Comment: No: D o not add to previous draw Performed By: #### 5 0608 ####[address] Nucleated RBC/100 WBC (Bld) [Ratio] 0 % Normal 0-0 [facility] Comment on above: Order Comment: No: D o not add to previous draw Performed By: #### 5 0608 ####[address] [place] [address], [facility] PLAT CNT 255 10*3/uL Normal 150-400 [facility] Comment on above: Order Comment: No: D o not add to previous draw Performed By: #### 5 0608 ####[facility] [place] [address], [facility] RBC (Bld) [#/Vol] 3.97 10*6/uL Low 4.20-5.70 [facility] Comment on above: Order Comment: No: D o not add to previous draw Performed By: #### 5 0608 ####[facility] [place] [address], [facility] WBC (Bld) [#/Vol] 10.62 10*3/uL High 4.00-10.60 [facility] Comment on above: Order Comment: No: D o not add to previous draw Performed By: #### 5 0608 ####[facility] [place] [address], [facility] LACTATE WITH REFLEXon 2021 Lactate [Moles/Vol] 0.8 mmol/L Normal .5-2.2 [facility] Comment on above: Order Comment: No: D o not add to previous draw Performed By: #### 3 1414 ####[facility] [place] [address], [facility] LDH BLOODon 07-21-2021 LDH 215 Units/L Normal 140-271 [facility] Comment on above: Order Comment: Yes: Add to Previous draw if able Performed By: #### 1 0062 ####[facility] [place] [address], [facility] MAGNESIUM BLOODon 07-21-2021 Magnesium [Mass/Vol] 2.1 mg/dL Normal 1.9-2.7 [facility] Comment on above: Order Comment: No: D o not add to previous draw Performed By: #### 0 0071, 18744 ####[facility] [place] [address], [place] POC GLUCOSE LABon 07-21-2021 Glucose [Mass/Vol] 193 mg/dL High 70-100 [facility] Comment on above: Performed By: #### 8 5499 ####[facility] [place] [address], [place] Glucose [Mass/Vol] 253 mg/dL High 70-100 [facility] Comment on above: Performed By: #### 8 5499 ####[facility] [place] [address], [place] Glucose [Mass/Vol] 212 mg/dL High 70-100 [facility] Comment on above: Performed By: #### 8 5499 ####[facility] [place] [address], [place] Glucose [Mass/Vol] 132 mg/dL High 70-100 [facility] Comment on above: Performed By: #### 8 5499 ####[facility] [place] [address], [place] PORTABLE CHEST 1 VIEWon 07-09 PORTABLE CHEST 1 VIEW Normal [facility] Comment on above: Order Comment: R/O A telectasis PROCALCITONINon 07-21-2021 PROCALCITONIN 0.09 ng/mL Normal 0.00-0.10 [facility] Comment on above: Order Comment: No: D [...] andinitial PCT<0.5ng/mL Performed By: #### 3 1488 ####[facility] [employer] SEDIMENTATION RATEon 022 SED RATE 108 mm/hr High 0-10 [facility] Comment on above: Order Comment: No: D o not add to previous draw Performed By: #### 5 6506 ####[facility] [place] [address], [facility] UFH HEPARIN ASSAYon 07-22-19 22 UNFRACTIONATED HEPARIN 0.47 IU/mL Normal 0.30-0.70 [facility] Comment on above: Result Comment: Kylie roxaban and Apixaban will interfere with the anti Xa assay used tomonitor UFH and LMWH. Performed By: #### 3 0477, 79421 ####[facility] [place] [address], [facility] APTTon 07-20-2021 aPTT Coag (Bld) [Time] 82.0 s Critically high 25.0-35.0 [facility] Comment on above: Order Comment: No: D o not add to previous draw Result Comment: Clin ical significance of the PTT result is questionable in the presenceof Heparin.RESULTS CHECKED AND CALLED. ACCURATELY READ BACK BY Glenna Sow RN@[id number] 07/20/21 Performed By: #### 3 0477, 91898 ####[facility] [place] [address], [facility] aPTT Coag (Bld) [Time] 79.5 s Critically high 25.0-35.0 [facility] Comment on above: Order Comment: No: D o not add to previous draw Result Comment: Resu lt checked and called. Accurately read back by FRANCI CARPENTER RN ON07/20/2021 AT 15:45 Performed By: #### 5 7307 ####[facility] [place] [address], [facility] aPTT Coag (Bld) [Time] 64.4 s High 25.0-35.0 [facility] Comment on above: Order Comment: No: D [...] THIS PURPOSE. Performed By: #### 5 7307 ####[facility] [place] [address], [facility] aPTT Coag (Bld) [Time] 78.9 s Critically high 25.0-35.0 [facility] Comment on above: Order Comment: No: D o not add to previous draw Result Comment: CLIN ICAL SIGNIFICANCE OF THE PTT RESULT IS QUESTIONABLE IN THE PRESENCEOF HEPARIN.Result checked and called. Accurately read back by Elisabeth Pollard RN [phone] Performed By: #### 5 7307 ####[facility] BASIC METABOLIC PANELon 03- Calcium [Mass/Vol] 8.9 mg/dL Normal 8.6-10.3 [facility] Comment on above: Order Comment: No: D o not add to previous draw Performed By: #### 4 1000, 15357, 68479 ####[facility] [place] [address], [facility] Chloride [Moles/Vol] 92 mmol/L Low 98-107 [facility] Comment on above: Order Comment: No: D o not add to previous draw Performed By: #### 4 1000, 28474, 11854 ####[facility] [place] [address], [facility] CO2 [Moles/Vol] 25 mmol/L Normal 21-31 [facility] Comment on above: Order Comment: No: D o not add to previous draw Performed By: #### 4 1000, 95795, 45363 ####[facility] [place] [address], [facility] Creatinine [Mass/Vol] 1.97 mg/dL High 0.70-1.30 [facility] Comment on above: Order Comment: No: D o not add to previous draw Performed By: #### 4 1000, 43819, 79009 ####[facility] [place] [address], [facility] eGFR- 42 ml/min/1.73sq m Abnormal >60 [facility] Comment on above: Order Comment: No: D o not add to previous draw Performed By: #### 4 999, 01453, 05042 ####[facility] [place] [address], [facility] eGFR- non- 35 ml/min/1.73sq m Abnormal >60 [facility] Comment on above: Order Comment: No: D o not add to previous draw Performed By: #### 4 1000, 24329, 62038 ####[facility] [place] [address], [facility] Glucose [Mass/Vol] 104 mg/dL High 70-100 [facility] Comment on above: Order Comment: No: D o not add to previous draw Performed By: #### 4 1000, 14330, 69570 ####[facility] Potassium [Moles/Vol] 4.3 mmol/L Normal 3.5-5.1 [facility] Comment on above: Order Comment: No: D o not add to previous draw Performed By: #### 4 1000, 13066, 56253 ####[facility] Sodium [Moles/Vol] 134 mmol/L Low 136-145 [facility] Comment on above: Order Comment: No: D o not add to previous draw Performed By: #### 4 1000, 09393, 08602 ####[facility] Urea nitrogen [Mass/Vol] 60 mg/dL High 7-25 [facility] Comment on above: Order Comment: No: D o not add to previous draw Performed By: #### 4 1000, 22713, 72297 ####[facility] CBC W/DIFFon 07-20-2021 ABS IMM GRANS 0.0 10*3/uL Normal 0.0-0.2 [facility] Comment on above: Order Comment: No: D o not add to previous draw Performed By: #### 5 0103 ####[facility] ABS NEUTROPHILS 4.4 10*3/uL Normal 1.6-7.6 [facility] Comment on above: Order Comment: No: D o not add to previous draw Performed By: #### 5 0103 ####[facility] [place] [address].[place] [address], [facility] Basophils (Bld) [#/Vol] 0.1 10*3/uL Normal 0.0-0.2 [facility] Comment on above: Order Comment: No: D o not add to previous draw Performed By: #### 5 0103 ####[facility] [facility] [address], [facility] Basophils/100 WBC (Bld) 0.6 % Normal 0.0-1.0 [facility] Comment on above: Order Comment: No: D o not add to previous draw Performed By: #### 5 0103 ####[facility] [place] [address], [facility] Eosinophils (Bld) [#/Vol] 0.2 10*3/uL Normal 0.0-0.5 [facility] Comment on above: Order Comment: No: D o not add to previous draw Performed By: #### 5 0103 ####[facility] [place] [address], [facility] Eosinophils/100 WBC (Bld) 1.8 % Normal 0.0-6.0 [facility] Comment on above: Order Comment: No: D o not add to previous draw Performed By: #### 5 0103 ####[place] [id number] Erythrocyte distribution width (RBC) [Ratio] 15.6 % High 11.5-15.0 [facility] Comment on above: Order Comment: No: D o not add to previous draw Performed By: #### 5 0103 ####[facility] Hematocrit (Bld) [Volume fraction] 38.7 % Low 39.0-50.0 [facility] Comment on above: Order Comment: No: D o not add to previous draw Performed By: #### 5 0103 ####[facility] Hemoglobin (Bld) [Mass/Vol] 12.3 g/dL Low 13.0-17.0 [facility] Comment on above: Order Comment: No: D o not add to previous draw Performed By: #### 5 0103 ####[facility] IMMATURE GRANS 0.1 % Normal 0.0-1.0 [facility] Comment on above: Order Comment: No: D o not add to previous draw Performed By: #### 5 0103 ####[facility] Lymphocytes (Bld) [#/Vol] 2.8 10*3/uL Normal 1.2-4.0 [facility] Comment on above: Order Comment: No: D o not add to previous draw Performed By: #### 5 0103 ####[address] Lymphocytes/100 WBC (Bld) 34.0 % Normal 20.0-45.0 [facility] Comment on above: Order Comment: No: D o not add to previous draw Performed By: #### 5 0103 ####[address] MCH (RBC) [Entitic mass] 27.4 pg Normal 27.0-33.0 [facility] Comment on above: Order Comment: No: D o not add to previous draw Performed By: #### 5 0103 ####[facility] [place] [address] MCHC (RBC) [Mass/Vol] 31.8 g/dL Low 32.0-35.0 [facility] Comment on above: Order Comment: No: D o not add to previous draw Performed By: #### 5 0103 ####[facility] [place] [address], [facility] MCV (RBC) [Entitic vol] 86.2 fL Normal 82.0-98.0 [facility] Comment on above: Order Comment: No: D o not add to previous draw Performed By: #### 5 0103 ####[facility] [place] [address], [facility] Monocytes (Bld) [#/Vol] 0.8 10*3/uL Normal 0.1-1.0 [facility] Comment on above: Order Comment: No: D o not add to previous draw Performed By: #### 5 0103 ####[facility] [place] [address], [facility] MONOS 9.6 % Normal 5.0-12.0 [facility] Comment on above: Order Comment: No: D o not add to previous draw Performed By: #### 5 0103 ####[facility] [place] [address], [facility] Neutrophils/100 WBC (Bld) 53.9 % Normal 40.0-72.0 [facility] Comment on above: Order Comment: No: D o not add to previous draw Performed By: #### 5 0103 ####[facility] Nucleated RBC/100 WBC (Bld) [Ratio] 0 % Normal 0-0 [facility] Comment on above: Order Comment: No: D o not add to previous draw Performed By: #### 5 0103 ####[facility] [place] [address], [facility] PLAT CNT 267 10*3/uL Normal 150-400 [facility] Comment on above: Order Comment: No: D o not add to previous draw Performed By: #### 5 0103 ####[facility] [place] [address], [facility] RBC (Bld) [#/Vol] 4.49 10*6/uL Normal 4.20-5.70 [facility] Comment on above: Order Comment: No: D o not add to previous draw Performed By: #### 5 0103 ####[facility] [place] [address], [facility] WBC (Bld) [#/Vol] 8.24 10*3/uL Normal 4.00-10.60 [facility] Comment on above: Order Comment: No: D o not add to previous draw Performed By: #### 5 0103 ####[facility] [place] [address], [facility] MAGNESIUM BLOODon 07-20-2021 Magnesium [Mass/Vol] 2.3 mg/dL Normal 1.9-2.7 [facility] Comment on above: Order Comment: No: D o not add to previous draw Performed By: #### 4 1000, 05782, 98799 ####[facility] [facility] [place] [address], [facility] PHOSPHORUS BLOODon Phosphate [Mass/Vol] 7.5 mg/dL High 2.5-5.0 [facility] Comment on above: Order Comment: No: D o not add to previous draw Performed By: #### 4 1000, 38595, 31506 ####[facility] [place] [address], [facility] POC GLUCOSE LABon 07-20-2021 Glucose [Mass/Vol] 214 mg/dL High 70-100 [facility] Comment on above: Performed By: #### 8 5499 ####[facility] [facility] [place] [address], [place] Glucose [Mass/Vol] 120 mg/dL High 70-100 [facility] Comment on above: Performed By: #### 8 5499 ####[facility] [place] [address], [place] Glucose [Mass/Vol] 252 mg/dL High 70-100 [facility] Comment on above: Performed By: #### 8 5499 ####[facility] [place] [address], [facility] Glucose [Mass/Vol] 139 mg/dL High 70-100 [facility] Comment on above: Performed By: #### 8 5499 ####[facility] [place] [address], [facility] UFH HEPARIN ASSAYon 07-21-19 UNFRACTIONATED HEPARIN 0.50 IU/mL Normal 0.30-0.70 [facility] Comment on above: Result Comment: UFH added per protocolRivaroxaban and Apixaban will interfere with the anti Xa assay used tomonitor UFH and LMWH. Performed By: #### 3 0477, 35831 ####[facility] APTTon 07-19-2021 aPTT Coag (Bld) [Time] 66.5 s High 25.0-35.0 [facility] Comment on above: Order Comment: No: D [...] THIS PURPOSE. Performed By: #### 3 0477, 03797 ####[facility] [place] [address], [facility] aPTT Coag (Bld) [Time] 64.3 s High 25.0-35.0 [facility] Comment on above: Order Comment: No: D [...] THIS PURPOSE. Performed By: #### 3 0477, 82001 ####[facility] BASIC METABOLIC PANELon - Calcium [Mass/Vol] 9.1 mg/dL Normal 8.6-10.3 [facility] Comment on above: Order Comment: No: D o not add to previous draw Performed By: #### 0 0071, 60772, 79959 ####[facility] [facility] Chloride [Moles/Vol] 94 mmol/L Low 98-107 [facility] Comment on above: Order Comment: No: D o not add to previous draw Performed By: #### 0 0071, 17594, 37557 ####[facility] [facility] CO2 [Moles/Vol] 28 mmol/L Normal 21-31 [facility] Comment on above: Order Comment: No: D o not add to previous draw Performed By: #### 0 0071, 06564, 30061 ####[facility] [facility] Creatinine [Mass/Vol] 1.45 mg/dL High 0.70-1.30 [facility] Comment on above: Order Comment: No: D o not add to previous draw Performed By: #### 0 0071, 25484, 09580 ####[facility] [facility] eGFR- 60 ml/min/1.73sq m Abnormal >60 [facility] Comment on above: Order Comment: No: D o not add to previous draw Performed By: #### 0 0071, 04155, 63891 ####[facility] eGFR- non- 50 ml/min/1.73sq m Abnormal >60 [facility] Comment on above: Order Comment: No: D o not add to previous draw Performed By: #### 0 0071, 77870, 52544 ####[facility] [place] [address], [facility] Glucose [Mass/Vol] 118 mg/dL High 70-100 [facility] Comment on above: Order Comment: No: D o not add to previous draw Performed By: #### 0 0071, 48138, 96007 ####[facility] [place] [address], [facility] Potassium [Moles/Vol] 3.7 mmol/L Normal 3.5-5.1 [facility] Comment on above: Order Comment: No: D o not add to previous draw Performed By: #### 0 0071, 22816, 03053 ####[facility] [place] [address], [facility] Sodium [Moles/Vol] 135 mmol/L Low 136-145 [facility] Comment on above: Order Comment: No: D o not add to previous draw Performed By: #### 0 0071, 01483, 99780 ####[facility] [place] [address], [facility] Urea nitrogen [Mass/Vol] 48 mg/dL High 7-25 [facility] Comment on above: Order Comment: No: D o not add to previous draw Performed By: #### 0 0071, 85535, 13115 ####[facility] [place] [address], [facility] CBC W/DIFFon 07-19-2021 ABS IMM GRANS 0.0 10*3/uL Normal 0.0-0.2 [facility] Comment on above: Order Comment: No: D o not add to previous draw Performed By: #### 5 0103 ####[facility] [place] [address], [facility] ABS NEUTROPHILS 5.1 10*3/uL Normal 1.6-7.6 [facility] Comment on above: Order Comment: No: D o not add to previous draw Performed By: #### 5 0103 ####[facility] [place] [address], [facility] Basophils (Bld) [#/Vol] 0.0 10*3/uL Normal 0.0-0.2 [facility] Comment on above: Order Comment: No: D o not add to previous draw Performed By: #### 5 3 ####[facility] [place] [address], [facility] Basophils/100 WBC (Bld) 0.5 % Normal 0.0-1.0 [facility] Comment on above: Order Comment: No: D o not add to previous draw Performed By: #### 5 3 ####[facility] [place] [address], [facility] Eosinophils (Bld) [#/Vol] 0.2 10*3/uL Normal 0.0-0.5 [facility] Comment on above: Order Comment: No: D o not add to previous draw Performed By: #### 5 3 ####[facility] [place] [address], [facility] Eosinophils/100 WBC (Bld) 2.2 % Normal 0.0-6.0 [facility] Comment on above: Order Comment: No: D o not add to previous draw Performed By: #### 5 0103 ####[facility] [place] [address], [facility] Erythrocyte distribution width (RBC) [Ratio] 15.5 % High 11.5-15.0 [facility] Comment on above: Order Comment: No: D o not add to previous draw Performed By: #### 5 3 ####[facility] Hematocrit (Bld) [Volume fraction] 33.6 % Low 39.0-50.0 [facility] Comment on above: Order Comment: No: D o not add to previous draw Performed By: #### 5 3 ####[facility] [place] [address], [facility] Hemoglobin (Bld) [Mass/Vol] 10.8 g/dL Low 13.0-17.0 [facility] Comment on above: Order Comment: No: D o not add to previous draw Performed By: #### 5 3 ####[facility] IMMATURE GRANS 0.2 % Normal 0.0-1.0 [facility] Comment on above: Order Comment: No: D o not add to previous draw Performed By: #### 5 3 ####[facility] Lymphocytes (Bld) [#/Vol] 2.7 10*3/uL Normal 1.2-4.0 [facility] Comment on above: Order Comment: No: D o not add to previous draw Performed By: #### 5 3 ####[facility] Lymphocytes/100 WBC (Bld) 31.2 % Normal 20.0-45.0 [facility] Comment on above: Order Comment: No: D o not add to previous draw Performed By: #### 5 0103 ####[facility] [place] [address], [facility] MCH (RBC) [Entitic mass] 27.5 pg Normal 27.0-33.0 [facility] Comment on above: Order Comment: No: D o not add to previous draw Performed By: #### 5 0103 ####[facility] MCHC (RBC) [Mass/Vol] 32.1 g/dL Normal 32.0-35.0 [facility] Comment on above: Order Comment: No: D o not add to previous draw Performed By: #### 5 0103 ####[facility] MCV (RBC) [Entitic vol] 85.5 fL Normal 82.0-98.0 [facility] Comment on above: Order Comment: No: D o not add to previous draw Performed By: #### 5 0103 ####[facility] Monocytes (Bld) [#/Vol] 0.7 10*3/uL Normal 0.1-1.0 [facility] Comment on above: Order Comment: No: D o not add to previous draw Performed By: #### 5 0103 ####[facility] MONOS 8.0 % Normal 5.0-12.0 [facility] Comment on above: Order Comment: No: D o not add to previous draw Performed By: #### 5 3 ####[facility] Neutrophils/100 WBC (Bld) 57.9 % Normal 40.0-72.0 [facility] Comment on above: Order Comment: No: D o not add to previous draw Performed By: #### 5 0103 ####[facility] [place] [address], [facility] Nucleated RBC/100 WBC (Bld) [Ratio] 0 % Normal 0-0 [facility] Comment on above: Order Comment: No: D o not add to previous draw Performed By: #### 5 0103 ####[facility] [place] [address], [facility] PLAT CNT 261 10*3/uL Normal 150-400 [facility] Comment on above: Order Comment: No: D o not add to previous draw Performed By: #### 5 0103 ####[facility] [place] [address], [facility] RBC (Bld) [#/Vol] 3.93 10*6/uL Low 4.20-5.70 [facility] Comment on above: Order Comment: No: D o not add to previous draw Performed By: #### 5 0103 ####[facility] [place] [address], [facility] WBC (Bld) [#/Vol] 8.75 10*3/uL Normal 4.00-10.60 [facility] Comment on above: Order Comment: No: D o not add to previous draw Performed By: #### 5 0103 ####[facility] [place] [address], [facility] MAGNESIUM BLOODon 07-19-2021 Magnesium [Mass/Vol] 1.9 mg/dL Normal 1.9-2.7 [facility] Comment on above: Order Comment: No: D o not add to previous draw Performed By: #### 0 0071, 79243, 21987 ####[facility] [place] [address], [facility] MICROALBUMIN URINE RANDOMon 07-19-2021 Albumin DL <= 20 mg/L (U) [Mass/Vol] 3.0 mg/dL Normal [facility] Comment on above: Order Comment: No: D o not add to previous draw Performed By: #### 4 3006, 21476, 12650 ####[facility] [place] [address], [facility] Creatinine (U) [Mass/Vol] 62.0 mg/dL Normal [facility] Comment on above: Order Comment: No: D o not add to previous draw Result Comment: Ther e are no established reference values for random urine specimens Performed By: #### 4 3006, 41737, 38033 ####[facility] [place] [address], [place] MICROALBUMIN/CREATINI NE RATIO 48.4 MG/G CREAT High 0.0-30.0 [facility] Comment on above: Order Comment: No: D o not add to previous draw Performed By: #### 4 3006, 15842, 89561 ####[facility] [place] [address], [place] PHOSPHORUS BLOODon Phosphate [Mass/Vol] 6.7 mg/dL High 2.5-5.0 [facility] Comment on above: Order Comment: No: D o not add to previous draw Performed By: #### 0 0071, 03778, 70685 ####[facility] [place] [address], [place] POC GLUCOSE LABon 07-19-2021 Glucose [Mass/Vol] 213 mg/dL High 70-100 [facility] Comment on above: Performed By: #### 8 5499 ####[facility] [place] [address], [place] Glucose [Mass/Vol] 256 mg/dL High 70-100 [facility] Comment on above: Performed By: #### 8 5499 ####[facility] [place] [address], [place] Glucose [Mass/Vol] 269 mg/dL High 70-100 [facility] Comment on above: Performed By: #### 8 5499 ####[facility] [place] [address], [place] Glucose [Mass/Vol] 157 mg/dL High 70-100 [facility] Comment on above: Performed By: #### 8 5499 ####[facility] [place] [address], [facility] SODIUM URINE RANDOMon 2021 Sodium (U) [Moles/Vol] 77 mmol/L Normal [facility] Comment on above: Order Comment: No: D o not add to previous draw Result Comment: Ther e are no established reference values for random urine specimens Performed By: #### 4 3006, 56167, 98585 ####[facility] [place] [address], [facility] UA,MICROSCOPIC REQUIREDon Appearance (U) SL CLOUDY Abnormal CLEAR [facility] Comment on above: Order Comment: No: D o not add to previous draw Performed By: #### 9 0150 ####[facility] [place] [address], [facility] Bilirubin Ql (U) Negative Normal NEGATIVE [facility] Comment on above: Order Comment: No: D o not add to previous draw Performed By: #### 9 0150 ####[facility] [place] [address], [place] Color (U) YELLOW Normal YELLOW [facility] Comment on above: Order Comment: No: D o not add to previous draw Performed By: #### 9 0150 ####[facility] [place] [address], [facility] EPIS NONE SEEN Normal FEW,OCC,NONE SEEN [facility] Comment on above: Order Comment: No: D o not add to previous draw Performed By: #### 9 0150 ####[facility] [place] [address], [place] Glucose Ql (U) Negative Normal NEGATIVE [facility] Comment on above: Order Comment: No: D o not add to previous draw Performed By: #### 9 0150 ####[facility] [place] [address], [place] Hemoglobin Ql (U) SMALL Abnormal NEGATIVE [facility] Comment on above: Order Comment: No: D o not add to previous draw Performed By: #### 9 0150 ####[facility] [place] [address], [facility] Hyaline casts LM Ql (Urine sed) 6 /LPF Abnormal NONE SEEN [facility] Comment on above: Order Comment: No: D o not add to previous draw Performed By: #### 9 0150 ####[facility] [place] [address], [facility] KETONE Negative Normal NEGATIVE [facility] Comment on above: Order Comment: No: D o not add to previous draw Performed By: #### 9 0150 ####[facility] [place] [address], [facility] LEUK ROMEO Negative Normal NEGATIVE [facility] Comment on above: Order Comment: No: D o not add to previous draw Performed By: #### 9 0150 ####[facility] [place] [address], [facility] MUCUS THREADS OCC Abnormal NONE SEEN [facility] Comment on above: Order Comment: No: D o not add to previous draw Performed By: #### 9 0150 ####[facility] [facility] [place] [address], [facility] Nitrite Ql (U) Negative Normal NEGATIVE [facility] Comment on above: Order Comment: No: D o not add to previous draw Performed By: #### 9 0150 ####[facility] [place] [address], [facility] pH (U) 5.0 [pH] Normal 5.0-8.0 [facility] Comment on above: Order Comment: No: D o not add to previous draw Performed By: #### 9 0150 ####[facility] [place] [address], [facility] Protein Ql (U) Negative Normal NEGATIVE [facility] Comment on above: Order Comment: No: D o not add to previous draw Performed By: #### 9 0150 ####[facility] RBC 3-5 Abnormal NONE SEEN [facility] Comment on above: Order Comment: No: D o not add to previous draw Performed By: #### 9 0150 ####[facility] SPEC GRAV 1.009 Low 1.015-1.020 [facility] Comment on above: Order Comment: No: D o not add to previous draw Performed By: #### 9 0150 ####[facility] WBC UA 0-2 Abnormal NONE SEEN [facility] Comment on above: Order Comment: No: D o not add to previous draw Performed By: #### 9 0150 ####[facility] UFH HEPARIN ASSAYon 07-20-19 22 UNFRACTIONATED HEPARIN 0.42 IU/mL Normal 0.30-0.70 [facility] Comment on above: Result Comment: [place] roxaban and Apixaban will interfere with the anti Xa assay used tomonitor UFH and LMWH.Rivaroxaban and Apixaban will interfere with the anti Xa assay used tomonitor UFH and LMWH. Performed By: #### 3 0477, 44596 ####[facility] UNFRACTIONATED HEPARIN 0.42 IU/mL Normal 0.30-0.70 [facility] Comment on above: Result Comment: [place] roxaban and Apixaban will interfere with the anti Xa assay used tomonitor UFH and LMWH. Performed By: #### 3 0477 ####[facility] UNFRACTIONATED HEPARIN 0.48 IU/mL Normal 0.30-0.70 [facility] Comment on above: Order Comment: Added on per protocol Result Comment: [place] roxaban and Apixaban will interfere with the anti Xa assay used tomonitor UFH and LMWH. Performed By: #### 3 0477, 76384 ####[facility] UREA NITROGEN URon 2 Urea nitrogen [Mass/Vol] 148 mg/dL Normal [facility] Comment on above: Order Comment: No: D o not add to previous draw Result Comment: Ther e are no established reference values for random urine specimens Performed By: #### 4 3006, 92367, 40734 ####[facility] APTTon 07-18-2021 aPTT Coag (Bld) [Time] 49.2 s High 25.0-35.0 [facility] Comment on above: Order Comment: This order is a replacement of the rejected order with accession [id number]. Result Comment: ALL RESULTS MUST BE INTERPRETED [...] THIS PURPOSE. Performed By: #### 5 7307 ####[facility] aPTT Coag (Bld) [Time] 38.4 s High 25.0-35.0 [facility] Comment on above: Result Comment: ALL RESULTS [...] THIS PURPOSE. Performed By: #### 3 0477, 41001 ####[facility] aPTT Coag (Bld) [Time] 33.3 s Normal 25.0-35.0 [facility] Comment on above: Order Comment: No: D [...] THIS PURPOSE. Performed By: #### 5 6101, 03644, 70673 ####[facility] BASIC METABOLIC PANELon 03- 0-2021 Calcium [Mass/Vol] 9.2 mg/dL Normal 8.6-10.3 [facility] Comment on above: Order Comment: No: D o not add to previous draw Performed By: #### 0 0071, 39782 ####[address] [place] [address], [facility] Chloride [Moles/Vol] 99 mmol/L Normal 98-107 [facility] Comment on above: Order Comment: No: D o not add to previous draw Performed By: #### 0 0071, 34423 ####[facility] [place] [address], [facility] CO2 [Moles/Vol] 28 mmol/L Normal 21-31 [facility] Comment on above: Order Comment: No: D o not add to previous draw Performed By: #### 0 0071, 26335 ####[facility] [place] [address], [facility] Creatinine [Mass/Vol] 0.88 mg/dL Normal 0.70-1.30 [facility] Comment on above: Order Comment: No: D o not add to previous draw Performed By: #### 0 0071, 20408 ####[facility] [place] [address], [place] GFR/1.73 sq M.predicted among blacks MDRD (S/P/Bld) [Vol rate/Area] mL/min/{1.73_m2} Normal >60 [facility] Comment on above: Order Comment: No: D o not add to previous draw Performed By: #### 0 0071, 20715 ####[facility] [place] [address], [place] GFR/1.73 sq M.predicted among non-blacks MDRD (S/P/Bld) [Vol rate/Area] mL/min/{1.73_m2} Normal >60 [facility] Comment on above: Order Comment: No: D o not add to previous draw Performed By: #### 0 0071, 75633 ####[facility] [place] [address], [place] Glucose [Mass/Vol] 132 mg/dL High 70-100 [facility] Comment on above: Order Comment: No: D o not add to previous draw Performed By: #### 0 0071, 13918 ####[facility] [place] [address], [place] Potassium [Moles/Vol] 3.6 mmol/L Normal 3.5-5.1 [facility] Comment on above: Order Comment: No: D o not add to previous draw Performed By: #### 0 0071, 96907 ####[facility] [place] [address], [place] Sodium [Moles/Vol] 135 mmol/L Low 136-145 [facility] Comment on above: Order Comment: No: D o not add to previous draw Performed By: #### 0 0071, 90925 ####[facility] [place] [address], [facility] Urea nitrogen [Mass/Vol] 28 mg/dL High 7-25 [facility] Comment on above: Order Comment: No: D o not add to previous draw Performed By: #### 0 0071, 50026 ####[facility] [place] [address], [place] Calcium [Mass/Vol] 9.3 mg/dL Normal 8.6-10.3 [facility] Comment on above: Order Comment: No: D o not add to previous draw Performed By: #### 9 9909, 62955, 92771, 29499 ####[facility] [place] [address], [facility] Chloride [Moles/Vol] 102 mmol/L Normal 98-107 [facility] Comment on above: Order Comment: No: D o not add to previous draw Performed By: #### 9 9909, 21278, 59479, 38086 ####[facility] [place] [address], [facility] CO2 [Moles/Vol] 26 mmol/L Normal 21-31 [facility] Comment on above: Order Comment: No: D o not add to previous draw Performed By: #### 9 9909, 37927, 45894, 18197 ####[facility] [id number], [facility] Creatinine [Mass/Vol] 0.84 mg/dL Normal 0.70-1.30 [facility] Comment on above: Order Comment: No: D o not add to previous draw Performed By: #### 9 9909, 87396, 08134, 09263 ####[facility] [place] [address], [place] GFR/1.73 sq M.predicted among blacks MDRD (S/P/Bld) [Vol rate/Area] mL/min/{1.73_m2} Normal >60 [facility] Comment on above: Order Comment: No: D o not add to previous draw Performed By: #### 9 9909, 19789, 88425, 15219 ####[facility] [place] [address], [facility] GFR/1.73 sq M.predicted among non-blacks MDRD (S/P/Bld) [Vol rate/Area] mL/min/{1.73_m2} Normal >60 [facility] Comment on above: Order Comment: No: D o not add to previous draw Performed By: #### 9 9909, 30758, 42877, 77503 ####[facility] [place] [address], [facility] Glucose [Mass/Vol] 112 mg/dL High 70-100 [facility] Comment on above: Order Comment: No: D o not add to previous draw Performed By: #### 9 9909, 76231, 73201, 64576 ####[facility] [place] [address], [facility] Potassium [Moles/Vol] 3.7 mmol/L Normal 3.5-5.1 [facility] Comment on above: Order Comment: No: D o not add to previous draw Performed By: #### 9 9909, 34982, 39632, 69836 ####[facility] [place] [address], [facility] Sodium [Moles/Vol] 136 mmol/L Normal 136-145 [facility] Comment on above: Order Comment: No: D o not add to previous draw Performed By: #### 9 9909, 15095, 78495, 74941 ####[facility] [place] [address], [facility] Urea nitrogen [Mass/Vol] 27 mg/dL High 7-25 [facility] Comment on above: Order Comment: No: D o not add to previous draw Performed By: #### 9 9909, 10179, 75313, 92978 ####[facility] CBC COMPLETE BLOOD COUNTon 0 07-18-2021 Erythrocyte distribution width (RBC) [Ratio] 15.3 % High 11.5-15.0 [facility] Comment on above: Order Comment: No: D o not add to previous draw Performed By: #### 5 0608 ####[facility] Hematocrit (Bld) [Volume fraction] 30.2 % Low 39.0-50.0 [facility] Comment on above: Order Comment: No: D o not add to previous draw Performed By: #### 5 0608 ####[place] [address] Hemoglobin (Bld) [Mass/Vol] 10.0 g/dL Low 13.0-17.0 [facility] Comment on above: Order Comment: No: D o not add to previous draw Performed By: #### 5 0608 ####[place] [address] MCH (RBC) [Entitic mass] 27.4 pg Normal 27.0-33.0 [facility] Comment on above: Order Comment: No: D o not add to previous draw Performed By: #### 5 0608 ####[facility] MCHC (RBC) [Mass/Vol] 33.1 g/dL Normal 32.0-35.0 [facility] Comment on above: Order Comment: No: D o not add to previous draw Performed By: #### 5 0608 ####[address] MCV (RBC) [Entitic vol] 82.7 fL Normal 82.0-98.0 [facility] Comment on above: Order Comment: No: D o not add to previous draw Performed By: #### 5 0608 ####[facility] Nucleated RBC/100 WBC (Bld) [Ratio] 0 % Normal 0-0 [facility] Comment on above: Order Comment: No: D o not add to previous draw Performed By: #### 5 0608 ####[facility] PLAT CNT 230 10*3/uL Normal 150-400 [facility] Comment on above: Order Comment: No: D o not add to previous draw Performed By: #### 5 0608 ####[facility] RBC (Bld) [#/Vol] 3.65 10*6/uL Low 4.20-5.70 [facility] Comment on above: Order Comment: No: D o not add to previous draw Performed By: #### 5 0608 ####[facility] WBC (Bld) [#/Vol] 6.12 10*3/uL Normal 4.00-10.60 [facility] Comment on above: Order Comment: No: D o not add to previous draw Performed By: #### 5 0608 ####[facility] CBC W/DIFFon 07-18-2021 ABS IMM GRANS 0.0 10*3/uL Normal 0.0-0.2 [facility] Comment on above: Performed By: #### 5 0103 ####[facility] ABS NEUTROPHILS 2.9 10*3/uL Normal 1.6-7.6 [facility] Comment on above: Performed By: #### 5 0103 ####[facility] [facility] [address], [facility] Basophils (Bld) [#/Vol] 0.0 10*3/uL Normal 0.0-0.2 [facility] Comment on above: Performed By: #### 5 3 ####[facility] [place] [address], [facility] Basophils/100 WBC (Bld) 0.5 % Normal 0.0-1.0 [facility] Comment on above: Performed By: #### 5 0103 ####[facility] [place] [address], [facility] Eosinophils (Bld) [#/Vol] 0.1 10*3/uL Normal 0.0-0.5 [facility] Comment on above: Performed By: #### 102 ####[facility] [place] [address], [facility] Eosinophils/100 WBC (Bld) 2.2 % Normal 0.0-6.0 [facility] Comment on above: Performed By: #### 5 3 ####[facility] Erythrocyte distribution width (RBC) [Ratio] 15.5 % High 11.5-15.0 [facility] Comment on above: Performed By: #### 5 3 ####[facility] Hematocrit (Bld) [Volume fraction] 31.0 % Low 39.0-50.0 [facility] Comment on above: Performed By: #### 5 3 ####[facility] Hemoglobin (Bld) [Mass/Vol] 10.2 g/dL Low 13.0-17.0 [facility] Comment on above: Performed By: #### 5 3 ####[facility] IMMATURE GRANS 0.2 % Normal 0.0-1.0 [facility] Comment on above: Performed By: #### 5 3 ####[facility] Lymphocytes (Bld) [#/Vol] 1.9 10*3/uL Normal 1.2-4.0 [facility] Comment on above: Performed By: #### 102 ####[facility] [place] [address] Lymphocytes/100 WBC (Bld) 34.4 % Normal 20.0-45.0 [facility] Comment on above: Performed By: #### 102 ####[facility] [place] [address] MCH (RBC) [Entitic mass] 27.6 pg Normal 27.0-33.0 [facility] Comment on above: Performed By: #### 5 3 ####[facility] MCHC (RBC) [Mass/Vol] 32.9 g/dL Normal 32.0-35.0 [facility] Comment on above: Performed By: #### 5 3 ####[facility] MCV (RBC) [Entitic vol] 83.8 fL Normal 82.0-98.0 [facility] Comment on above: Performed By: #### 5 3 ####[facility] [place] [address] Monocytes (Bld) [#/Vol] 0.6 10*3/uL Normal 0.1-1.0 [facility] Comment on above: Performed By: #### 3 ####[facility] [place] [address], [facility] MONOS 10.3 % Normal 5.0-12.0 [facility] Comment on above: Performed By: #### 5 3 ####[facility] [place] [address], [facility] Neutrophils/100 WBC (Bld) 52.4 % Normal 40.0-72.0 [facility] Comment on above: Performed By: #### 5 3 ####[facility] [place] [address], [facility] Nucleated RBC/100 WBC (Bld) [Ratio] 0 % Normal 0-0 [facility] Comment on above: Performed By: #### 5 102 ####[facility] [place] [address], [facility] PLAT CNT 226 10*3/uL Normal 150-400 [facility] Comment on above: Performed By: #### 5 3 ####[facility] [place] [address], [facility] RBC (Bld) [#/Vol] 3.70 10*6/uL Low 4.20-5.70 [facility] Comment on above: Performed By: #### 5 3 ####[facility] [place] [address], [facility] WBC (Bld) [#/Vol] 5.56 10*3/uL Normal 4.00-10.60 [facility] Comment on above: Performed By: #### 5 3 ####[facility] HEMOGLOBIN A1Con 07-18-2021 Glucose [Moles/Vol] 146 mmol/L Normal [facility] Comment on above: Order Comment: If no t done in EDNo: Do not add to previous draw Performed By: #### 3 1791 ####[facility] [place] [address], [facility] HbA1c (Bld) [Mass fraction] 6.7 % High 4.0-6.0 [facility] Comment on above: Order Comment: If no t done in EDNo: Do not add to previous draw Performed By: #### 3 1791 ####[facility] [place] [address], [facility] LIVER BATTERYon 07-18-2021 Albumin [Mass/Vol] 4.0 g/dL Normal 3.5-5.7 [facility] Comment on above: Order Comment: No: D o not add to previous draw Performed By: #### 9 9909, 29611, 18894, 62431 ####[facility] [place] [address], [facility] ALKALINE PHOSPH 53 IU/L Normal 34-104 [facility] Comment on above: Order Comment: No: D o not add to previous draw Performed By: #### 9 9909, 51950, 21553, 08541 ####[facility] [facility] [place] [address], [facility] ALT [Catalytic activity/Vol] 17 U/L Normal 7-52 [facility] Comment on above: Order Comment: No: D o not add to previous draw Performed By: #### 9 9909, 97091, 12898, 89756 ####[facility] [place] [address], [place] AST [Catalytic activity/Vol] 20 U/L Normal 13-39 [facility] Comment on above: Order Comment: No: D o not add to previous draw Performed By: #### 9 9909, 57559, 01868, 89190 ####[facility] [place] [address], [place] Bilirubin [Mass/Vol] 0.6 mg/dL Normal 0.3-1.0 [facility] Comment on above: Order Comment: No: D o not add to previous draw Performed By: #### 9 9909, 16022, 91535, 88312 ####[facility] [place] [address], [facility] Bilirubin.direct [Mass/Vol] 0.2 mg/dL Normal 0.0-0.2 [facility] Comment on above: Order Comment: No: D o not add to previous draw Performed By: #### 9 9909, 11398, 46802, 27813 ####[facility] [place] [address], [facility] Protein [Mass/Vol] 7.3 g/dL Normal 6.0-8.3 [facility] Comment on above: Order Comment: No: D o not add to previous draw Performed By: #### 9 9909, 41077, 84222, 27591 ####[facility] [place] [address], [facility] MAGNESIUM BLOODon 07-18-2021 Magnesium [Mass/Vol] 1.8 mg/dL Low 1.9-2.7 [facility] Comment on above: Order Comment: No: D o not add to previous draw Performed By: #### 0 0071, 44771 ####[facility] [place] [address], [facility] Magnesium [Mass/Vol] 1.7 mg/dL Low 1.9-2.7 [facility] Comment on above: Order Comment: No: D o not add to previous draw Performed By: #### 9 9909, 67530, 66948, 72671 ####[facility] [facility] [place] [address], [facility] POC GLUCOSE LABon 07-18-2021 Glucose [Mass/Vol] 244 mg/dL High 70-100 [facility] Comment on above: Performed By: #### 8 5499 ####[facility] [place] [address], [facility] Glucose [Mass/Vol] 155 mg/dL High 70-100 [facility] Comment on above: Performed By: #### 8 5499 ####[facility] [place] [address], [facility] Glucose [Mass/Vol] 246 mg/dL High 70-100 [facility] Comment on above: Performed By: #### 8 5499 ####[facility] [place] [address], [facility] Glucose [Mass/Vol] 140 mg/dL High 70-100 [facility] Comment on above: Performed By: #### 8 5499 ####[facility] POC SARS COV2 ANTIGEN NEGATI VEon 07-18-2021 POC SARS COV2 ANTIGEN NEG Negative Normal NEGATIVE [facility] Comment on above: Result Comment: Nega tive [...] protein antigen from SARS-CoV-2 in directnasopharyngeal swab (PRESSURE DISPATCHER) specimens from individuals who are suspected ofCOVID-19 [...] Certificate ofAccreditation. Performed By: #### 3 2044 ####[facility] PROTHROMBIN TIMEon 2 INR Coag (PPP) [Relative time] 1.07 {INR} Normal 0.91-1.16 [facility] Comment on above: Result Comment: ACCC P RECOMMENDED INR FOR WARFARIN THERAPY CONDITION INRPROPHYLAXIS OF VENOUS THROMBOSIS 2-3(HIGH-RISK SURGERY)TREATMENT OF VENOUS THROMBOSIS 2-3TREATMENT OF PULMONARY EMBOLISM 2-3PREVENTION OF SYSTEMIC EMBOLISM: 2-3 ACUTE MYOCARDIAL INFARCTION TISSUE HEART VALVES VALVULAR HEART DISEASE ATRIAL FIBRILLATION RECURRENT SYSTEMIC EMBOLISMMECHANICAL HEART VALVE 2.5-3.5 FROM: ORAL ANTICOAGULANTS. MECHANISM OF ACTION, CLINICALEFFECTIVENESS, AND OPTIMAL THERAPEUTIC RANGE. [id number];108:[id number]. Performed By: #### 5 6101, 34231, 84070 ####[facility] [place] [address], [facility] PT Coag (PPP) [Time] 13.9 s Normal 12.3-14.8 [facility] Comment on above: Result Comment: ALL RESULTS MUST BE INTERPRETED WITH RESPECT TO BLOOD DRAWING ARTIFACTOR DILUTION ERROR OF ANTICOAGULANT AT THE TIME OF SAMPLING. Performed By: #### 5 6101, 24710, 53640 ####[facility] [place] [address], [facility] INR Coag (PPP) [Relative time] 1.08 {INR} Normal 0.91-1.16 [facility] Comment on above: Order Comment: No: D [...] OF ACTION, CLINICALEFFECTIVENESS, AND OPTIMAL THERAPEUTIC RANGE. [id number];108:[id number]. Performed By: #### 5 6101 ####[facility] [place] [address], [facility] PT Coag (PPP) [Time] 14.0 s Normal 12.3-14.8 [facility] Comment on above: Order Comment: No: D o not add to previous draw Result Comment: ALL RESULTS MUST BE INTERPRETED WITH RESPECT TO BLOOD DRAWING ARTIFACTOR DILUTION ERROR OF ANTICOAGULANT AT THE TIME OF SAMPLING. Performed By: #### 5 6101 ####[facility] [facility] [place] [address], [facility] TROPONIN-Ion 07-18-2021 Troponin I.cardiac [Mass/Vol] 0.01 ng/mL Normal 0.00-0.04 [facility] Comment on above: Order Comment: No: D o not add to previous draw Result Comment: REFE RENCE RANGES: 0.00 - 0.04 ng/ml NORMAL 0.05 - 0.50 ng/ml INDETERMINATE > 0.50 ng/ml CONSISTENT WITH AN M.I. Performed By: #### 9 9909, 65520, 22929, 18819 ####[facility] [place] [address], [facility] UFH HEPARIN ASSAYon 07-19-19 UNFRACTIONATED HEPARIN 0.34 IU/mL Normal 0.30-0.70 [facility] Comment on above: Result Comment: Kylie roxaban and Apixaban will interfere with the anti Xa assay used tomonitor UFH and LMWH. Performed By: #### 3 0477, 50687 ####[facility] [place] [address], [facility] UNFRACTIONATED HEPARIN 0.27 IU/mL Low 0.30-0.70 [facility] Comment on above: Result Comment: [place] roxaban and Apixaban will interfere with the anti Xa assay used tomonitor UFH and LMWH. Performed By: #### 5 6101, 92557, 35708 ####[facility] BNP (B-TYPE NATRIURETIC PEPT CHANNING)on 07-17-2021 Natriuretic peptide B (Bld) [Mass/Vol] 85 pg/mL Normal 0-100 [facility] Comment on above: Order Comment: Yes: Add to Previous draw if able Result Comment: Give n the appropriate clinical setting a BNP result of >100 pg/mLindicates congestive heart failure. Performed By: #### 8 5123 ####[facility] [place] [address], [facility] POC GLUCOSE LABon 07-17-2021 Glucose [Mass/Vol] 184 mg/dL High 70-100 [facility] Comment on above: Performed By: #### 8 5499 ####[facility] [place] [address], [facility] Glucose [Mass/Vol] 106 mg/dL High 70-100 [facility] Comment on above: Performed By: #### 8 5499 ####[facility] [place] [address], [facility] PORTABLE CHEST 1 VIEWon PORTABLE CHEST 1 VIEW Normal [facility] Comment on above: Order Comment: Evalu ate [...] ZARINA CHUNG Date: 2021-06-19 11:35 Normal [facility] CBC AUTO DIFFon 06-18-2021 BASO # 0.1 103/ul Normal 0.0-0.1 [facility] Comment on above: Performed By: #### C BC #### [facility] [address] [place] [address] Dr. Terrence Paige Basophils/100 WBC (Bld) 0.8 % Normal 0.2-2.0 [facility] Comment on above: Performed By: #### C BC #### [facility] [address] [place] [address] [address] Terrence Paige EO # 0.1 103/ul Normal 0.0-0.7 [facility] Comment on above: Performed By: #### C BC #### [facility] [address] [place] [address] Dr. Terrence Paige Eosinophils/100 WBC (Bld) 1.1 % Normal 0.9-7.0 [facility] Comment on above: Performed By: #### C BC #### [facility] [address] [place] [address] Dr. Terrence Paige Erythrocyte distribution width (RBC) [Ratio] 15.4 % Critically high 11.0-15.0 [facility] Comment on above: Performed By: #### C BC #### [facility] [address] [place] [address] Dr. Terrence Paige Hematocrit (Bld) [Volume fraction] 31.8 % Critically low 42.0-54.0 [facility] Comment on above: Performed By: #### C BC #### [facility] [address] [place] [address] Dr. Terrence Paige Hemoglobin (Bld) [Mass/Vol] 9.8 g/dL Critically low 14.0-18.0 [facility] Comment on above: Performed By: #### C BC #### [facility] [address] [place] [address] Dr. Terrence Paige IG # 0.02 10e3/ul Normal 0.00-0.03 [facility] Comment on above: Performed By: #### C BC #### [facility] [address] [place] [address] Dr. Terrence Paige IG % 0.3 % Normal 0.0-0.5 [facility] Comment on above: Performed By: #### C BC #### [facility] [address] [place] [address] Dr. Terrence Paige LYMPH # 1.9 103/ul Normal 1.2-3.8 [facility] Comment on above: Performed By: #### C BC #### [facility] [address] [place] [address] Dr. Terrence Paige Lymphocytes/100 WBC (Bld) 30.6 % Normal 20.5-60.0 [facility] [facility] Comment on above: Performed By: #### C BC #### [facility] [address] [place] [address] Dr. Terrence Paige MANUAL DIFF REQ NO Normal [facility] Comment on above: Performed By: #### C BC #### [facility] [address] [place] [address] Dr. Terrence Paige MCH (RBC) [Entitic mass] 26.7 pg Normal 25.9-34.0 [facility] Comment on above: Performed By: #### C BC #### [facility] [address] [place] [address] Dr. Terrence Paige MCHC (RBC) [Mass/Vol] 30.8 g/dL Normal 29.9-35.2 [facility] Comment on above: Performed By: #### C BC #### [facility] [address] [place] [address] Dr. Terrence Paige MCV (RBC) [Entitic vol] 86.6 fL Normal 80.0-94.0 [facility] Comment on above: Performed By: #### C BC #### [facility] [address] [place] [address] Dr. Terrence Paige MONO # 0.5 103/ul Normal 0.3-0.8 [facility] Comment on above: Performed By: #### C BC #### [facility] [address] [place] [address] Dr. Terrence Paige Monocytes/100 WBC (Bld) 7.6 % Normal 1.7-12.0 [facility] Comment on above: Performed By: #### C BC #### [facility] [address] [place] [address] Dr. Terrence Paige NEUT # 3.8 103/ul Normal 1.4-6.5 [facility] Comment on above: Performed By: #### C BC #### [facility] [address] [place] [address] Dr. Terrence Paige Neutrophils/100 WBC (Bld) 59.6 % Normal 43.0-75.0 [facility] Comment on above: Performed By: #### C BC #### [facility] [address] [place] [address] Dr. Terrence Paige Platelet mean volume (Bld) [Entitic vol] 11.1 fL Normal 9.5-13.5 [facility] Comment on above: Performed By: #### C BC #### [facility] [address] [place] [address] Dr. Terrence Paige PLT 202 103/ul Normal 150-450 [facility] Comment on above: Performed By: #### C BC #### [facility] [address] [place] [address] Dr. Terrence Paige RBC 3.67 106/ul Critically low 4.70-6.10 [facility] Comment on above: Performed By: #### C BC #### [facility] [address] [place] [address] Dr. Terrence Paige WBC 6.3 103/ul Normal 4.0-11.0 [facility] Comment on above: Performed By: #### C BC #### [facility] [address] [place] [address] Dr. Terrence Paige CULTURE BLOODon 06-18-2021 Microscopic examination of blood, culture Culture Observations: NO GROWTH AT 5 DAYS. Normal [facility] Comment on above: Performed By: #### C BC #### [facility] [address] [place] [address] Dr. Terrence Paige PROF CHEM 8 (BAS METB)on Anion gap [Moles/Vol] 12.1 mmol/L Normal [facility] Comment on above: Performed By: #### C BC #### [facility] [address] [place] [address] Dr. Terrence Paige Calcium [Mass/Vol] 9.4 mg/dL Normal 8.4-10.2 [facility] Comment on above: Performed By: #### C BC #### [facility] [address] [place] [address] Dr. Terrence Paige Chloride [Moles/Vol] 105 mmol/L Normal 98-107 [facility] Comment on above: Performed By: #### C BC #### [facility] [address] [place] [address] Dr. Terrence Paige CO2 [Moles/Vol] 28.3 mmol/L Normal 22.0-30.0 [facility] Comment on above: Performed By: #### C BC #### [facility] [address] [place] [address] Dr. Terrence Paige Creatinine [Mass/Vol] 0.68 mg/dL Normal 0.66-1.25 [facility] Comment on above: Performed By: #### C BC #### [facility] [address] [place] [address] Dr. Terrence Paige EGFR-AF KUWAITI >60 Normal >=60 [facility] Comment on above: Performed By: #### C BC #### [facility] [address] [place] [address] Dr. Terrence Paige EGFR-NON AF KUWAITI >60 Normal >=60 [facility] Comment on above: Performed By: #### C BC #### [facility] [address] [place] [address] Dr. Terrence Paige Glucose [Mass/Vol] 119 mg/dL Critically high 74-106 T [facility] Comment on above: Performed By: #### C BC #### [facility] [address] [place] [address] Dr. Terrence Paige Potassium [Moles/Vol] 4.4 mmol/L Normal 3.4-5.0 [facility] Comment on above: Performed By: #### C BC #### [facility] [address] [place] [address] Dr. Terrence Paige Sodium [Moles/Vol] 141 mmol/L Normal 137-145 [facility] Comment on above: Performed By: #### C BC #### [facility] [address] [place] [address] Dr. Terrence Paige Urea nitrogen [Mass/Vol] 20.0 mg/dL Normal 9.0-20.0 [facility] Comment on above: Performed By: #### C BC #### [facility] [address] [place] [address] Dr. Terrence Paige Urea nitrogen/Creatinine [Mass ratio] 29.4 mg/mg Normal [facility] Comment on above: Performed By: #### C BC #### [facility] [address] [place] [address] Dr. Terrence Paige XR FOOT LT MIN 3 VIEWSon XR [...] by: KARIN RDZ Date: 2021-04-18 12:13 Normal [facility] Vital Signs Date Time Vital Sign Value Performing Clinician Facility 07-13-2024 10:35-0500 Body height 177.8 cm Suraj Llanos MD Work Phone: [facility] 07-13-2024 10:35-0500 Body mass index (BMI) [Ratio] 40.4 kg/m2 Suraj Llanos MD Work Phone: [facility] 07-13-2024 10:35-0500 Body weight 127.91 kg Suraj Llanos MD Work Phone: [facility] 07-13-2024 10:35-0500 Diastolic blood pressure 73 mm[Hg] Suraj Llanos MD Work Phone: [facility] 07-13-2024 10:35-0500 Heart rate 77 /min Suraj Llanos MD Work Phone: [facility] 07-13-2024 10:35-0500 Respiratory rate 12 /min Suraj Llanos MD Work Phone: [facility] 07-13-2024 10:35-0500 SaO2% (BldA) [Mass fraction] 99 % Suraj Llanos MD Work Phone: [facility] 07-13-2024 10:35-0500 Systolic blood pressure 123 mm[Hg] Suraj Llanos MD Work Phone: [facility] 07-05-2024 13:24-0500 Body height 177.8 cm Suraj Llanos MD Work Phone: [facility] 07-05-2024 13:24-0500 Body mass index (BMI) [Ratio] 40.7 kg/m2 Suraj Llanos MD Work Phone: [facility] 07-05-2024 13:24-0500 Body weight 128.82 kg Suraj Llanos MD Work Phone: [facility] 07-05-2024 13:24-0500 Diastolic blood pressure 82 mm[Hg] Suraj Llanos MD Work Phone: [facility] 07-05-2024 13:24-0500 Heart rate 82 /min Suraj Llanos MD Work Phone: [facility] 07-05-2024 13:24-0500 Respiratory rate 12 /min Suraj Llanos MD Work Phone: [facility] 07-05-2024 13:24-0500 Systolic blood pressure 151 mm[Hg] Surja Llanos MD Work Phone: [facility] 04-04-2024 15:48-0500 Body height 177.8 cm Homar Rusher DPM Work Phone: [facility] 04-04-2024 15:48-0500 Body mass index (BMI) [Ratio] 26.69 kg/m2 Homar Rusher DPM Work Phone: [facility] 04-04-2024 15:48-0500 Body weight 84.37 kg Homar Rusher DPM Work Phone: [facility] 03-07-2024 14:36-0400 Body height 180.3 cm Homar Rusher DPM Work Phone: [facility] 03-07-2024 14:36-0400 Body mass index (BMI) [Ratio] 24.41 kg/m2 Homar Joleen DPM Work Phone: [facility] 03-07-2024 14:36-0400 Body weight 79.38 kg Homar Joleen DPM Work Phone: [facility] 03-04-2024 14:38-0400 Body height 177.8 cm MD Suraj Llanos Work Phone: [facility] 03-04-2024 14:38-0400 Body mass index (BMI) [Ratio] 41.3 kg/m2 MD Suraj Llanos Work Phone: [facility] 03-04-2024 14:38-0400 Body weight 130.63 kg MD Suraj Llanos Work Phone: [facility] 03-04-2024 14:38-0400 Diastolic blood pressure 78 mm[Hg] MD Suraj Llanos Work Phone: [facility] 03-04-2024 14:38-0400 Heart rate 89 /min MD Suraj Llanos Work Phone: [facility] 03-04-2024 14:38-0400 Systolic blood pressure 165 mm[Hg] MD Suraj Llanos Work Phone: [facility] 03-02-2024 15:22-0400 Body height 177.8 cm MD Suraj Llanos Work Phone: [facility] 03-02-2024 15:22-0400 Body mass index (BMI) [Ratio] 40.6 kg/m2 MD Suraj Llanos Work Phone: [facility] 03-02-2024 15:22-0400 Body weight 128.36 kg MD Suraj Llanos Work Phone: [facility] 03-02-2024 15:22-0400 Diastolic blood pressure 52 mm[Hg] MD Suraj Llanos Work Phone: [facility] 03-02-2024 15:22-0400 Heart rate 87 /min MD Suraj Llanos Work Phone: [facility] 03-02-2024 15:22-0400 SaO2% (BldA) [Mass fraction] 97 % MD Suraj Llanos Work Phone: [facility] 03-02-2024 15:22-0400 Systolic blood pressure 101 mm[Hg] MD Suraj Llanos Work Phone: [facility] 12-29-2023 11:44-0400 Body height 177.8 cm MD Suraj Llanos Work Phone: [facility] 12-29-2023 11:44-0400 Body mass index (BMI) [Ratio] 41.1 kg/m2 MD Suraj Llanos Work Phone: [facility] 12-29-2023 11:44-0400 Body weight 130.18 kg MD Suraj Llanos Work Phone: [facility] 12-29-2023 11:44-0400 Diastolic blood pressure 72 mm[Hg] MD Suraj Llanos Work Phone: [facility] 12-29-2023 11:44-0400 Heart rate 84 /min MD Suraj Llanos Work Phone: [facility] 12-29-2023 11:44-0400 Systolic blood pressure 118 mm[Hg] MD Suraj Llanos Work Phone: [facility] 10-14-2023 15:22-0400 Body height 177.8 cm [facility] 10-14-2023 15:22-0400 Body mass index (BMI) [Ratio] 42.2 kg/m2 [facility] 10-14-2023 15:22-0400 Body weight 133.35 kg [facility] 10-14-2023 15:22-0400 Diastolic blood pressure 67 mm[Hg] [facility] 10-14-2023 15:22-0400 Heart rate 79 /min [facility] 10-14-2023 15:22-0400 SaO2% (BldA) [Mass fraction] 95 % [facility] 10-14-2023 15:22-0400 Systolic blood pressure 131 mm[Hg] [facility] 08-13-2023 09:28-0400 Body height 177.8 cm MD Suraj Llanos Work Phone: [facility] 08-13-2023 09:28-0400 Body mass index (BMI) [Ratio] 43.2 kg/m2 MD Suraj Llanos Work Phone: [facility] 08-13-2023 09:28-0400 Body weight 136.75 kg MD Suraj Llanos Work Phone: [facility] 08-13-2023 09:28-0400 Diastolic blood pressure 74 mm[Hg] MD Suraj Llanos Work Phone: [facility] 08-13-2023 09:28-0400 Heart rate 71 /min MD Suraj Llanos Work Phone: [facility] 08-13-2023 09:28-0400 Systolic blood pressure 167 mm[Hg] MD Suraj Llanos Work Phone: [facility] 06-12-2023 13:30-0500 Body height 177.8 cm Suraj Llanos Other [facility] 06-12-2023 13:30-0500 Body mass index (BMI) [Ratio] 43.33 kg/m2 Suraj Llanos Other [facility] Other 06-12-2023 13:30-0500 Body weight 136.99 kg Suraj Llanos Other [facility] Other 06-12-2023 13:30-0500 Body weight 136.98 kg MD Suraj Llanos Work Phone: [facility] 06-12-2023 13:30-0500 Diastolic blood pressure 89 mm[Hg] Suraj Llanos Other [facility] 06-12-2023 13:30-0500 Systolic blood pressure 165 mm[Hg] Suraj Llanos Other [facility] 05-12-2023 15:45-0500 Body height 177.8 cm Suraj Llanos Other [facility] Other 05-12-2023 15:45-0500 Body mass index (BMI) [Ratio] 42.75 kg/m2 Suraj Llanos Other [facility] Other 05-12-2023 15:45-0500 Body weight 135.17 kg Suraj Llanos Other [facility] Other 05-12-2023 15:45-0500 Diastolic blood pressure 92 mm[Hg] Suraj Llanos Other [facility] Other 05-12-2023 15:45-0500 Respiratory rate 16 /min Suraj Llanos Other [facility] Other 05-12-2023 15:45-0500 Systolic blood pressure 136 mm[Hg] Suraj Llanos Other [facility] Other 02-26-2023 15:46-0400 Body temperature 98.06 [degF] Derrick Benson [facility] 02-26-2023 15:46-0400 Diastolic blood pressure 85 mm[Hg] Derrick Benson [facility] 02-26-2023 15:46-0400 Heart rate 89 /min Derrick Benson [facility] 02-26-2023 15:46-0400 Respiratory rate 18 /min Derrick Benson [facility] 02-26-2023 15:46-0400 SaO2% (BldA) [Mass fraction] 96 % Derrick Benson [facility] 02-26-2023 15:46-0400 Systolic blood pressure 139 mm[Hg] Derrick Benson [facility] 01-27-2023 13:00-0400 Body height 177.8 cm Suraj Llanos Other [facility] Other 01-27-2023 13:00-0400 Body mass index (BMI) [Ratio] 42.32 kg/m2 Suraj Llanos Other [facility] Other 01-27-2023 13:00-0400 Body weight 133.81 kg Suraj Llanos Other [facility] Other 01-27-2023 13:00-0400 Diastolic blood pressure 84 mm[Hg] Suraj Llanos Other [facility] Other 01-27-2023 13:00-0400 Systolic blood pressure 150 mm[Hg] Suraj Llanos Other [facility] Other 01-15-2023 11:16-0400 Hourly Rounding Octavio Paster [facility] 01-15-2023 11:16-0400 Promise to Return Octavio Paster [facility] 01-15-2023 10:00-0400 Hourly Rounding Octavio Paster [facility] 01-15-2023 10:00-0400 Promise to Return Octavio Paster [facility] 01-15-2023 09:00-0400 Hourly Rounding Octavio Paster [facility] 01-15-2023 09:00-0400 Promise to Return Octavio Paster [facility] 01-15-2023 08:30-0400 Diastolic blood pressure 78 mm[Hg] Octavio Paster [facility] 01-15-2023 08:30-0400 Mean blood pressure 98 mm[Hg] Octavio Paster [facility] 01-15-2023 08:30-0400 Systolic blood pressure 139 mm[Hg] Octavio Paster [facility] 01-15-2023 08:08-0400 SaO2% (BldA) [Mass fraction] 97 % Octavio Paster [facility] 01-15-2023 07:40-0400 Heart rate 76 /min Octavio Paster [facility] 01-15-2023 07:40-0400 SaO2% (BldA) [Mass fraction] 99 % Octavio Paster [facility] 01-15-2023 07:40-0400 Respiratory rate 18 /min Octavio Paster [facility] 01-15-2023 07:40-0400 Body temperature 97.52 [degF] Octavio Paster [facility] 01-15-2023 07:39-0400 Diastolic blood pressure 78 mm[Hg] Octavio Paster [facility] 01-15-2023 07:39-0400 Mean blood pressure 98 mm[Hg] Octavio Paster [facility] 01-15-2023 07:39-0400 Systolic blood pressure 139 mm[Hg] Octavio Paster [facility] 01-15-2023 03:06-0400 Heart rate 82 /min Octavio Paster [facility] 01-15-2023 03:06-0400 SaO2% (BldA) [Mass fraction] 97 % Octavio Paster [facility] 01-15-2023 03:06-0400 Diastolic blood pressure 79 mm[Hg] Octvaio Paster [facility] 01-15-2023 03:06-0400 Mean blood pressure 102 mm[Hg] Octavio Paster [facility] 01-15-2023 03:06-0400 Systolic blood pressure 148 mm[Hg] Octavio Paster [facility] 01-15-2023 03:06-0400 Body temperature 97.7 [degF] Octavio Paster [facility] 01-15-2023 03:06-0400 Blood Pressure Location Octavio Paster [facility] 01-15-2023 03:06-0400 Mean blood pressure 102 mm[Hg] Octavio Paster [facility] 01-15-2023 03:06-0400 Respiratory rate 18 /min Octavio Paster [facility] 01-15-2023 00:39-0400 Heart rate 77 /min Octavio Paster [facility] 01-15-2023 00:00-0400 Blood Pressure Location Octavio Paster [facility] 01-15-2023 00:00-0400 Body temperature 97.88 [degF] Octavio Paster [facility] 01-15-2023 00:00-0400 Mean blood pressure 105 mm[Hg] Octavio Paster [facility] 01-14-2023 21:36-0400 gluc 174 mg/dL Octavio Paster [facility] 01-14-2023 19:47-0400 Mean blood pressure 114 mm[Hg] Octavio Paster [facility] 01-14-2023 00:32-0400 Body temperature 97.52 [degF] Octavio Paster [facility] 01-14-2023 00:32-0400 Heart rate 68 /min Octavio Paster [facility] 01-14-2023 00:32-0400 Respiratory rate 18 /min Octavio Paster [facility] 01-13-2023 17:25-0400 gluc 169 mg/dL Octavio Paster [facility] 01-13-2023 12:00-0400 gluc 240 mg/dL Octavio Paster [facility] 01-13-2023 07:58-0400 Body temperature 97.34 [degF] Octavio Paster [facility] 01-12-2023 16:11-0400 Blood Pressure Location Octavio Paster [facility] 01-11-2023 17:55-0400 Respiratory rate 16 /min Octavio Paster [facility] 01-11-2023 08:00-0400 Respiratory rate 18 /min Octavio Paster [facility] 01-10-2023 17:21-0400 Heart rate 68 /min Octavio Paster [facility] 01-10-2023 12:16-0400 Heart rate 80 /min Octavio Paster [facility] 11-26-2022 11:30-0400 Body height 177.8 cm Suraj Llanos Other [facility] Other 11-26-2022 11:30-0400 Body mass index (BMI) [Ratio] 43.76 kg/m2 Suraj Llanos Other [facility] Other 11-26-2022 11:30-0400 Body weight 138.35 kg Suraj Llanos Other [facility] Other 11-26-2022 11:30-0400 Diastolic blood pressure 70 mm[Hg] Suraj Llanos Other [facility] Other 11-26-2022 11:30-0400 Systolic blood pressure 125 mm[Hg] Suraj Llanos Other [facility] Other 11-07-2022 13:45-0400 Body height 177.8 cm Suraj Llanos Other [facility] Other 11-07-2022 13:45-0400 Body mass index (BMI) [Ratio] 45.05 kg/m2 Suraj Llanos Other [facility] Other 11-07-2022 13:45-0400 Body weight 142.43 kg Suraj Llanos Other [facility] Other 11-07-2022 13:45-0400 Diastolic blood pressure 81 mm[Hg] Suraj Llanos Other [facility] Other 11-07-2022 13:45-0400 Systolic blood pressure 132 mm[Hg] Suraj Llanos Other [facility] Other 08-18-2022 18:36-0400 [facility] 18:36-0400 [facility] 17:36-0400 [facility] Rounding [facility] 08-18-2022 17:36-0400 Promise to Return Alaa THEE [facility] 08-18-2022 16:16-0400 Hourly Rounding [facility] 08-18-2022 16:16-0400 Promise to Return [facility] 08-18-2022 15:00-0400 Blood Pressure Location [facility] 08-18-2022 15:00-0400 Diastolic blood pressure 75 mm[Hg] [facility] 08-18-2022 15:00-0400 Heart rate 77 /min [facility] 08-18-2022 15:00-0400 Respiratory rate 16 /min [facility] 08-18-2022 15:00-0400 Systolic blood pressure 126 mm[Hg] [facility] 08-18-2022 12:59-0400 Heart rate 79 /min [facility] 08-18-2022 12:59-0400 SaO2% (BldA) [Mass fraction] 97 % [facility] 08-18-2022 12:58-0400 Diastolic blood pressure 81 mm[Hg] [facility] 08-18-2022 12:58-0400 Mean blood pressure 99 mm[Hg] [facility] 08-18-2022 12:58-0400 Systolic blood pressure 134 mm[Hg] [facility] 08-18-2022 12:58-0400 Body temperature 97.34 [degF] [facility] 08-18-2022 10:00-0400 Body temperature 97.7 [degF] [facility] 08-18-2022 10:00-0400 Diastolic blood pressure 76 mm[Hg] [facility] 08-18-2022 10:00-0400 Heart rate 70 /min [facility] 08-18-2022 10:00-0400 Respiratory rate 18 /min [facility] 08-18-2022 10:00-0400 SaO2% (BldA) [Mass fraction] 95 % [facility] 08-18-2022 10:00-0400 Systolic blood pressure 118 mm[Hg] [facility] 08:00-0400 Body temperature 95.54 [degF] [facility] 08-17-2022 23:50-0400 Body temperature 98.06 [degF] [facility] 08-17-2022 23:50-0400 Mean blood pressure 97 mm[Hg] [facility] 08-17-2022 20:30-0400 Body temperature 98.42 [degF] [facility] 08-17-2022 20:30-0400 Mean blood pressure 105 mm[Hg] [facility] 08-17-2022 16:13-0400 Mean blood pressure 103 mm[Hg] [facility] 08-17-2022 14:00-0400 Mean blood pressure 102 mm[Hg] [facility] 08-17-2022 11:32-0400 Mean blood pressure 76 mm[Hg] [facility] 08-14-2022 21:12-0400 gluc 188 mg/dL [facility] 08-14-2022 18:14-0400 gluc 270 mg/dL [facility] 08-14-2022 13:43-0400 Body temperature 97.52 [degF] [facility] 08-14-2022 13:08-0400 Body temperature 97.7 [degF] [facility] 08-14-2022 13:08-0400 Respiratory rate 17 /min [facility] 08-14-2022 13:05-0400 Respiratory rate 15 /min [facility] 08-14-2022 12:50-0400 Respiratory rate 14 /min [facility] 08-13-2022 16:15-0400 Heart rate 82 /min [facility] 08-13-2022 09:16-0400 Heart rate 84 /min [facility] 08-06-2022 16:45-0400 Body height 177.8 cm Jeb Hernandez Other [facility] Other 08-06-2022 16:45-0400 Body mass index (BMI) [Ratio] 43.04 kg/m2 Jeb Hernandez Other [facility] Other 08-06-2022 16:45-0400 Body weight 136.08 kg Jeb Hernandez Other [facility] Other 08-06-2022 16:45-0400 Diastolic blood pressure 67 mm[Hg] Jeb Hernandez Other [facility] Other 08-06-2022 16:45-0400 SaO2% (BldA) [Mass fraction] 99 % Jeb Mary Other [facility] Other 08-06-2022 16:45-0400 Systolic blood pressure 116 mm[Hg] Jeb Hernandez Other [facility] Other 07-24-2022 14:15-0400 Body height 177.8 cm Ronaldo Arcos Other [facility] Other 07-24-2022 14:15-0400 Body mass index (BMI) [Ratio] 39.02 kg/m2 Ronaldo Arcos Other [facility] Other 07-24-2022 14:15-0400 Body temperature 97.5 [degF] Ronaldo Arcos Other [facility] Other 07-24-2022 14:15-0400 Body weight 123.38 kg Ronaldo Arcos Other [facility] Other 07-24-2022 14:15-0400 Diastolic blood pressure 65 mm[Hg] Ronaldo Arcos Other [facility] Other 07-24-2022 14:15-0400 Systolic blood pressure 123 mm[Hg] Ronaldo Arcos Other [facility] Other 07-01-2022 14:47-0500 Diastolic blood pressure 78 mm[Hg] Mark Mirian [facility] 07-01-2022 14:47-0500 Heart rate 77 /min Mark Mirian [facility] 07-01-2022 14:47-0500 Mean blood pressure 92 mm[Hg] Mark Mirian [facility] 07-01-2022 14:47-0500 Respiratory rate 16 /min Mark Mirian [facility] 07-01-2022 14:47-0500 SaO2% (BldA) [Mass fraction] 97 % Mark Mirian [facility] 07-01-2022 14:47-0500 Systolic blood pressure 120 mm[Hg] Mark Mirian [facility] 07-01-2022 14:00-0500 Diastolic blood pressure 89 mm[Hg] Mark Mirian [facility] 07-01-2022 14:00-0500 Heart rate 79 /min Mark Mirian [facility] 07-01-2022 14:00-0500 Hourly Rounding Mark Corbette [facility] 07-01-2022 14:00-0500 Mean blood pressure 112 mm[Hg] Mark Corbette [facility] 07-01-2022 14:00-0500 Systolic blood pressure 157 mm[Hg] Mark Corbette [facility] 07-01-2022 13:00-0500 Diastolic blood pressure 92 mm[Hg] Mark Corbette [facility] 07-01-2022 13:00-0500 Heart rate 80 /min Mark Corbette [facility] 07-01-2022 13:00-0500 Hourly Rounding Mark Corbette [facility] 07-01-2022 13:00-0500 Mean blood pressure 124 mm[Hg] Mark Corbette [facility] 07-01-2022 13:00-0500 Systolic blood pressure 188 mm[Hg] Mark Corbette [facility] 07-01-2022 11:43-0500 Body temperature 98.24 [degF] Mark Corebtte [facility] 07-01-2022 11:43-0500 Heart rate 81 /min Mark Corbette [facility] 06-30-2022 14:00-0500 Body height 177.8 cm Suraj Llanos Other [facility] Other 06-30-2022 14:00-0500 Body mass index (BMI) [Ratio] 42.73 kg/m2 Suraj Llanos Other [facility] Other 06-30-2022 14:00-0500 Body weight 135.08 kg Suraj Llanos Other [facility] Other 06-30-2022 14:00-0500 Diastolic blood pressure 70 mm[Hg] Suraj Llanos Other [facility] Other 06-30-2022 14:00-0500 SaO2% (BldA) [Mass fraction] 99 % Suraj Llanos Other [facility] Other 06-30-2022 14:00-0500 Systolic blood pressure 132 mm[Hg] Suraj Llanos Other [facility] Other 06-23-2022 15:45-0500 SaO2% (BldA) [Mass fraction] 98 % [facility] 06-23-2022 13:01-0500 gluc 273 mg/dL [facility] 06-23-2022 13:00-0500 Hourly Rounding [facility] 06-23-2022 13:00-0500 Promise to Return [facility] 06-23-2022 12:42-0500 Hourly Rounding [facility] 06-23-2022 12:42-0500 Promise to Return [facility] 06-23-2022 11:21-0500 Hourly Rounding [facility] 06-23-2022 11:21-0500 Promise to Return [facility] 06-23-2022 11:00-0500 Blood Pressure Location [facility] 06-23-2022 11:00-0500 Body temperature 97.52 [degF] [facility] 06-23-2022 11:00-0500 Diastolic blood pressure 64 mm[Hg] [facility] 06-23-2022 11:00-0500 Heart rate 95 /min [facility] 06-23-2022 11:00-0500 Mean blood pressure 76 mm[facility] 11:00-0500 Respiratory rate 16 /min [facility] 06-23-2022 11:00-0500 SaO2% (BldA) [Mass fraction] 99 % [facility] 06-23-2022 11:00-0500 Systolic blood pressure 100 mm[Hg] [facility] 06-23-2022 09:18-0500 gluc 179 mg/dL [facility] 06-23-2022 09:13-0500 Diastolic blood pressure 85 mm[Hg] [facility] 06-23-2022 09:13-0500 Systolic blood pressure 139 mm[Hg] [facility] 06-23-2022 08:40-0500 SaO2% (BldA) [Mass fraction] 98 % [facility] 06-23-2022 08:39-0500 Heart rate 82 /min [facility] 06-23-2022 08:39-0500 Respiratory rate 18 /min [facility] 06-23-2022 07:00-0500 Body temperature 97.88 [degF] [facility] 06-23-2022 07:00-0500 Heart rate 80 /min [facility] 06-23-2022 07:00-0500 Mean blood pressure 103 mm[Hg] [facility] 06-23-2022 07:00-0500 Respiratory rate 14 /min [facility] 06-23-2022 00:00-0500 Blood Pressure Location [facility] 06-23-2022 00:00-0500 Body temperature 98.06 [degF] [facility] 06-23-2022 00:00-0500 Mean blood pressure 99 mm[Hg] [facility] 06-22-2022 20:34-0500 Mean blood pressure 110 mm[Hg] [facility] 20:34-0500 Body temperature 97.7 [degF] [facility] 06-22-2022 17:02-0500 Mean blood pressure 95 mm[Hg] [facility] 06-22-2022 17:02-0500 Body temperature 97.88 [degF] [facility] 06-22-2022 12:16-0500 Mean blood pressure 79 mm[Hg] [facility] 06-22-2022 12:15-0500 Body temperature 97.88 [degF] [facility] 06-20-2022 17:00-0500 Respiratory rate 16 /min [facility] 06-20-2022 16:24-0500 Body temperature 97.88 [degF] [facility] 06-20-2022 16:24-0500 Respiratory rate 12 /min [facility] 06-20-2022 16:10-0500 Respiratory rate 13 /min [facility] 06-20-2022 15:42-0500 Body temperature 97.52 [degF] [facility] 06-19-2022 11:41-0500 FIO2 40 % [facility] 06-18-2022 18:24-0500 Heart rate 71 /min [facility] 06-18-2022 12:54-0500 Heart rate 87 /min [facility] 06-06-2022 12:15-0500 Body height 177.8 cm Suraj Llanos Other [facility] Other 06-06-2022 12:15-0500 Body mass index (BMI) [Ratio] 42.61 kg/m2 Suraj Llanos Other [facility] Other 06-06-2022 12:15-0500 Body weight 134.72 kg Suraj Llanos Other [facility] Other 06-06-2022 12:15-0500 Diastolic blood pressure 64 mm[Hg] Suraj Llanos Other [facility] Other 06-06-2022 12:15-0500 SaO2% (BldA) [Mass fraction] 97 % Suraj Llanos Other [facility] Other 06-06-2022 12:15-0500 Systolic blood pressure 98 mm[Hg] Suraj Llanos Other [facility] Other 04-18-2022 08:36-0500 Diastolic blood pressure 87 mm[Hg] Hasan AMIR [facility] 04-18-2022 08:36-0500 Systolic blood pressure 128 mm[Hg] Hasan AMIR [facility] 04-18-2022 08:35-0500 Diastolic blood pressure 87 mm[Hg] Hasan AMIR [facility] 04-18-2022 08:35-0500 Systolic blood pressure 128 mm[Hg] Hasan AMIR [facility] 04-18-2022 08:33-0500 SaO2% (BldA) [Mass fraction] 96 % Hasan AMIR [facility] 04-18-2022 08:28-0500 Heart rate 88 /min Hasan AMIR [facility] 04-18-2022 08:28-0500 Respiratory rate 16 /min Hasan AMIR [facility] 04-18-2022 08:12-0500 Hourly Rounding Hasan AMIR [facility] 04-18-2022 08:12-0500 Promise to Return Hasan AMIR [facility] 04-18-2022 08:11-0500 Blood Pressure Location Hasan AMIR [facility] 04-18-2022 08:11-0500 Body temperature 97.88 [degF] Hasan AMIR [facility] 04-18-2022 08:11-0500 BP/Pulse Patient Position Hasan AMIR [facility] 04-18-2022 08:11-0500 Diastolic blood pressure 87 mm[Hg] Hasan AMIR [facility] 04-18-2022 08:11-0500 Heart rate 89 /min Hasan AMIR [facility] 04-18-2022 08:11-0500 Mean blood pressure 101 mm[Hg] Hasan AMIR [facility] 04-18-2022 08:11-0500 Respiratory rate 16 /min Hasan AMIR [facility] 04-18-2022 08:11-0500 SaO2% (BldA) [Mass fraction] 98 % Hasan AMIR [facility] 04-18-2022 08:11-0500 Systolic blood pressure 128 mm[Hg] Hasan AMIR [facility] 04-18-2022 07:00-0500 Hourly Rounding Hasan AMIR [facility] 04-18-2022 07:00-0500 Promise to Return Hasan AMIR [facility] 04-18-2022 06:12-0500 Hourly Rounding Hasan AMIR [facility] 04-18-2022 06:12-0500 Promise to Return Hasan AMIR [facility] 04-17-2022 23:45-0500 Body temperature 99.68 [degF] Hasan AMIR [facility] 04-17-2022 23:45-0500 Heart rate 97 /min Hasan AMIR [facility] 04-17-2022 23:45-0500 Mean blood pressure 115 mm[Hg] Hasan AMIR [facility] 04-17-2022 23:45-0500 Respiratory rate 16 /min Hasan AMIR [facility] 04-17-2022 23:45-0500 SaO2% (BldA) [Mass fraction] 94 % Hasan AMIR [facility] 04-17-2022 19:33-0500 Body temperature 99.32 [degF] Hasan AMIR [facility] 04-17-2022 19:33-0500 Mean blood pressure 93 mm[Hg] Hasan AMIR [facility] 04-17-2022 17:25-0500 Blood Pressure Location Hasan AMIR [facility] 04-17-2022 17:25-0500 Body temperature 97.88 [degF] Hasan AMIR [facility] 04-17-2022 17:25-0500 BP/Pulse Patient Position Hasan AMIR [facility] 04-17-2022 17:25-0500 Mean blood pressure 89 mm[Hg] Hasan AMIR [facility] 04-17-2022 17:25-0500 Respiratory rate 18 /min Hasan AMIR [facility] 04-17-2022 12:45-0500 Blood Pressure Location Hasan AMIR [facility] 04-17-2022 12:45-0500 BP/Pulse Patient Position Hasan AMIR [facility] 04-17-2022 12:45-0500 Respiratory rate 18 /min Hasan AMIR [facility] 04-17-2022 08:28-0500 Respiratory rate 18 /min Hasan AMIR [facility] 04-16-2022 19:27-0500 Body temperature 98.42 [degF] Hasan AMIR [facility] 04-16-2022 18:30-0500 Body temperature 97.7 [degF] Hasan AMIR [facility] 04-16-2022 16:40-0500 Mean blood pressure 92 mm[Hg] Hasan AMIR [facility] 04-16-2022 11:56-0500 Body temperature 97.88 [degF] Hasan AMIR [facility] 04-16-2022 11:56-0500 Mean blood pressure 89 mm[Hg] Hasan AMIR [facility] 04-16-2022 07:38-0500 Body temperature 97.34 [degF] Hasan AMIR [facility] 04-15-2022 21:16-0500 gluc 252 mg/dL Hasan AMIR [facility] 04-15-2022 21:15-0500 gluc 252 mg/dL Hasan AMIR [facility] 04-15-2022 17:16-0500 gluc 323 mg/dL Hasan AMIR [facility] 04-14-2022 15:50-0500 Heart rate 69 /min Hasan AMIR [facility] 04-14-2022 15:00-0500 Heart rate 78 /min Hasan AMIR [facility] 04-14-2022 14:00-0500 Heart rate 75 /min Hasan AMIR [facility] 12-02-2021 21:32-0400 Hourly Rounding Henri DEAN [facility] 12-02-2021 21:13-0400 Diastolic blood pressure 86 mm[Hg] Henri DEAN [facility] 12-02-2021 21:13-0400 Systolic blood pressure 153 mm[Hg] Henri DEAN [facility] 12-02-2021 21:00-0400 Hourly Rounding Henri DEAN [facility] 12-02-2021 21:00-0400 Promise to Return Henri DEAN [facility] 12-02-2021 20:00-0400 Promise to Return Henri DEAN [facility] 12-02-2021 19:48-0400 Blood Pressure Location Henri DEAN [facility] 12-02-2021 19:48-0400 Body temperature 97.88 [degF] Henri DEAN [facility] 12-02-2021 19:48-0400 BP/Pulse Patient Position Henrirodriguez LOUISESLIN [facility] 12-02-2021 19:48-0400 Diastolic blood pressure 86 mm[Hg] Henri DEAN [facility] 12-02-2021 19:48-0400 Heart rate 95 /min Henri DEAN [facility] 12-02-2021 19:48-0400 Mean blood pressure 108 mm[Hg] Henri DEAN [facility] 12-02-2021 19:48-0400 Respiratory rate 16 /min Henri DEAN [facility] 12-02-2021 19:48-0400 SaO2% (BldA) [Mass fraction] 95 % Henrirodriguez LOUISESLIN [facility] 12-02-2021 19:48-0400 Systolic blood pressure 153 mm[Hg] Henrirodriguez LOUISESLIN [facility] 12-02-2021 19:00-0400 Promise to Return Henrirodriguez LOUISESLIN [facility] 12-02-2021 18:56-0400 Body temperature 97.7 [degF] Henrirodriguez LOUISESLIN [facility] 12-02-2021 18:56-0400 Diastolic blood pressure 84 mm[Hg] Henri DEAN [facility] 12-02-2021 18:56-0400 Heart rate 96 /min Henri DEAN [facility] 12-02-2021 18:56-0400 Mean blood pressure 105 mm[Hg] Henri DEAN [facility] 12-02-2021 18:56-0400 SaO2% (BldA) [Mass fraction] 96 % Henri DEAN [facility] 12-02-2021 18:56-0400 Systolic blood pressure 148 mm[Hg] Henri DEAN [facility] 12-02-2021 17:49-0400 gluc 116 mg/dL Henri DEAN [facility] 12-02-2021 12:00-0400 Body temperature 98.24 [degF] Henri DEAN [facility] 12-02-2021 12:00-0400 Heart rate 83 /min Henri DEAN [facility] 12-02-2021 12:00-0400 Respiratory rate 17 /min Henrirodriguez LOUISESLIN [facility] 12-02-2021 12:00-0400 SaO2% (BldA) [Mass fraction] 98 % Henri DEAN [facility] 12-02-2021 11:57-0400 gluc 188 mg/dL Henri DEAN [facility] 12-02-2021 11:27-0400 Mean blood pressure 96 mm[Hg] Henri DEAN [facility] 12-02-2021 10:00-0400 Mean blood pressure 92 mm[Hg] Henri DEAN [facility] 12-02-2021 09:17-0400 gluc 175 mg/dL Henri DEAN [facility] 12-01-2021 00:00-0400 FIO2 90 % Henri DEAN [facility] 11-30-2021 21:12-0400 Heart rate 96 /min Henri DEAN [facility] 11-30-2021 20:00-0400 Heart rate 82 /min Henrirodriguez LOUISESLIN [facility] 11-30-2021 20:00-0400 Mean blood pressure 114 mm[Hg] Henri DEAN [facility] 11-30-2021 19:00-0400 Heart rate 86 /min Henrirodriguez LOUISESLIN [facility] 11-30-2021 19:00-0400 Mean blood pressure 116 mm[Hg] Henrirodriguez LOUISESLIN [facility] 11-30-2021 19:00-0400 Respiratory rate 20 /min Henrirodriguez LOUISESLIN [facility] 11-30-2021 18:42-0400 Respiratory rate 18 /min Henrirodriguez RADFORDLIN [facility] 06-26-2021 16:15-0500 Body height 180.34 cm Jeb Hernandez Other [facility] Other 06-26-2021 16:15-0500 Body mass index (BMI) [Ratio] 40.58 kg/m2 Jeb Hernandez Other [facility] Other 06-26-2021 16:15-0500 Body temperature 96 [degF] Jeb Crandallno Other [facility] Other 06-26-2021 16:15-0500 Body weight 132 kg Jeb Hernandez Other [employer] Other 06-26-2021 16:15-0500 Diastolic blood pressure 79 mm[Hg] Jeb Hernandez Other [facility] Other 06-26-2021 16:15-0500 SaO2% (BldA) [Mass fraction] 99 % Jeb Hernandez Other [facility] Other 06-26-2021 16:15-0500 Systolic blood pressure 129 mm[Hg] Jeb Crandallno Other [facility] Other Encounters Encounter Date Encounter Type Care Provider Facility Start: 07-13-2024 End: 07-13-2024 ambulatory Suraj Llanos MD Work Phone: [facility] Work Phone: Start: 07-13-2024 End: 07-13-2024 Patient encounter procedure Suraj Llanos MD Work Phone: [facility] Work Phone: Start: 07-12-2024 End: 07-12-2024 ambulatory [facility] Start: 07-05-2024 End: 07-05-2024 ambulatory Suraj Llanos MD Work Phone: [facility] Work Phone: Start: 07-05-2024 End: 07-05-2024 Patient encounter procedure Suraj Llanos MD Work Phone: [facility] Work Phone: Start: 06-22-2024 Non-patient / Non-visit Suraj Llanos MD Work Phone: [facility] Work Phone: Start: 06-20-2024 End: 06-21-2024 Telephone encounter Laz Romo MD Work Phone: [facility] Start: 06-16-2024 Non-patient / Non-visit Suraj Llanos MD Work Phone: [facility] Work Phone: Start: 06-14-2024 Non-patient / Non-visit Suraj Llanos MD Work Phone: [facility] Work Phone: Start: 06-07-2024 Evaluation and management of inpatient KEON [facility] Start: 06-07-2024 Evaluation and management of inpatient [facility] Start: 06-06-2024 Evaluation and management of inpatient [facility] Start: 06-06-2024 End: 06-13-2024 Evaluation and management of inpatient [facility] Start: 06-06-2024 End: 06-06-2024 ambulatory [facility] Start: 06-06-2024 Non-patient / Non-visit Suraj Llanos MD Work Phone: [facility] Work Phone: Start: 06-05-2024 Non-patient / Non-visit Suraj Llanos MD Work Phone: [facility] Work Phone: Start: 06-04-2024 Non-patient / Non-visit Suraj Llanos MD Work Phone: [facility] Work Phone: Start: 06-03-2024 Non-patient / Non-visit Suraj Llanos MD Work Phone: [facility] Work Phone: Start: 06-02-2024 Non-patient / Non-visit Suraj Llanos MD Work Phone: [facility] Work Phone: Start: 06-01-2024 Non-patient / Non-visit Suraj Llanos MD Work Phone: [facility] Work Phone: Start: 05-27-2024 End: 05-27-2024 ambulatory Suraj Llanos MD Work Phone: [facility] Work Phone: Start: 05-27-2024 End: 05-27-2024 Departed Referred Suraj Llanos MD Work Phone: [facility] Start: 05-27-2024 Non-patient / Non-visit Suraj Llanos MD Work Phone: [facility] Work Phone: Start: 05-24-2024 Non-patient / Non-visit Suraj Llanos MD Work Phone: [facility] Work Phone: Start: 04-27-2024 End: 04-27-2024 ambulatory A [facility] Start: 04-27-2024 End: 04-27-2024 ambulatory AB [facility] Start: 04-22-2024 End: 04-22-2024 Bamboo flowsheet Homar Goodrich DPM Work Phone: [facility] Start: 04-22-2024 End: 04-22-2024 Bamboo flowsheet Homar Goodrich DPM Work Phone: [facility] Start: 04-22-2024 End: 04-22-2024 Postop follow up visit related to original px Homar Goodrich DPM Work Phone: [facility] Comment on above: Type 2 diabetes maria elena itus with foot ulcer (CODE) ([facility]/HCC) (Primary Dx); Non-pressure chronic ulcer of other part of left foot with fat layer exposed ([facility]/HCC); Diabetic polyneuropathy associated with type 2 diabetes mellitus ([facility]/HCC); Equinus contracture of right ankle; Equinus contracture of left ankle; History of amputation Start: 04-22-2024 End: 04-22-2024 ambulatory HOMAR GOODRICH Not Available Start: 04-13-2024 End: 04-13-2024 ambulatory ESTLELA ROACHABELINORomaine [facility] Start: 04-04-2024 End: 04-04-2024 Postop follow up visit related to original px Homar Goodrich DPM Work Phone: [facility] Comment on above: Type 2 diabetes maria elena itus with foot ulcer (CODE) ([facility]) (Primary Dx); Non-pressure chronic ulcer of other part of left foot with fat layer exposed ([facility]/HCC); Diabetic polyneuropathy associated with type 2 diabetes mellitus ([facility]); Equinus contracture of right ankle; Equinus contracture of left ankle; History of amputation Start: 04-04-2024 End: 04-04-2024 ambulatory HOMAR GOODRICH Not Available Start: 04-04-2024 End: 04-04-2024 Bamboo flowsheet Homar Goodrich DPM Work Phone: [facility] Start: 04-04-2024 End: 04-04-2024 Bamboo flowsheet Homar Goodrich DPM Work Phone: [facility] Start: 03-24-2024 End: 03-24-2024 ambulatory [facility] Start: 03-23-2024 End: 05-23-2024 Telephone encounter Mark Spain DO Work Phone: [facility] Start: 03-23-2024 End: 03-23-2024 ambulatory EHAB [facility] Start: 03-14-2024 End: 03-14-2024 Telephone encounter Laz Romo MD Work Phone: [facility] Comment on above: Medication Problem Start: 03-07-2024 End: 03-07-2024 Office outpatient new 30 minutes Homar Goodrich DPM Work Phone: [facility] Comment on above: Diabetic polyneuropa thy associated with type 2 diabetes mellitus (CMS/HCC) (Primary Dx); Type 2 diabetes mellitus with foot ulcer (CODE) (CMS/HCC); 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); Pressure ulcer of left heel, stage 2 (CMS/HCC); 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 Work Phone: Start: 03-04-2024 End: 03-04-2024 Patient encounter procedure MD Suraj Llanos Work Phone: [facility] Work Phone: Start: 03-03-2024 Non-patient / Non-visit MD Sharmin Llanos Work Phone: [facility] Work Phone: Start: 03-02-2024 End: 03-02-2024 Patient encounter procedure MD Suraj Llanos Work Phone: [facility] Work Phone: Start: 03-02-2024 End: 03-02-2024 ambulatory MD Suraj Llanos Work Phone: [facility] Work Phone: Start: 02-23-2024 End: 02-23-2024 ambulatory [facility] Start: 02-09-2024 End: 02-09-2024 ambulatory [facility] Start: 02-01-2024 End: 02-01-2024 ambulatory [facility] Start: 01-27-2024 End: 01-27-2024 ambulatory AYA [facility] Start: 01-19-2024 Non-patient / Non-visit MD Sharmin Llanos Work Phone: [facility] Work Phone: Start: 01-12-2024 End: 02-03-2024 Telephone encounter Summer Palacios [facility] Start: 12-29-2023 End: 12-29-2023 ambulatory MD Suraj Llanos Work Phone: [facility] Work Phone: Start: 12-29-2023 End: 12-29-2023 Patient encounter procedure MD Suraj Llanos Work Phone: [facility] Work Phone: Start: 12-28-2023 End: 12-28-2023 Patient encounter procedure MD Suraj Llanos Work Phone: [facility] Work Phone: Start: 12-28-2023 End: 12-28-2023 ambulatory MD Suraj Llanos Work Phone: [facility] Work Phone: Start: 12-22-2023 End: 12-22-2023 ambulatory A [facility] Start: 12-14-2023 End: 12-14-2023 ambulatory AB [facility] Start: 11-12-2023 Non-patient / Non-visit MD Sharmin Llanos Work Phone: [facility] Work Phone: Start: 11-11-2023 End: 11-11-2023 ambulatory MD Suraj Llanos Work Phone: [facility] Work Phone: Start: 11-11-2023 End: 11-11-2023 Departed Referred MD Suraj Llanos Work Phone: [facility] Start: 11-11-2023 Non-patient / Non-visit MD Sharmin Llanos Work Phone: [facility] Work Phone: Start: 11-10-2023 Non-patient / Non-visit MD Sharmin Llanos Work Phone: [facility] Work Phone: Start: 10-20-2023 End: 10-20-2023 ambulatory [facility] Start: 10-20-2023 End: 10-20-2023 ambulatory [facility] Start: 10-14-2023 End: 10-14-2023 ambulatory [facility] Work Phone: Start: 10-14-2023 End: 10-14-2023 Patient encounter procedure [facility] Work Phone: Start: 10-12-2023 End: 10-12-2023 ambulatory [facility] Start: 09-29-2023 End: 09-29-2023 ambulatory [facility] Start: 09-09-2023 End: 09-09-2023 Patient encounter procedure [facility] Work Phone: Start: 09-07-2023 Non-patient / Non-visit [facility] Work Phone: Start: 09-02-2023 [facility] Start[facility] 08-31-2023 Evaluation and management of inpatient [facility] Start: 08-28-2023 Evaluation and management of inpatient [facility] Start: 08-28-2023 Evaluation and management of inpatient [facility] Start: 08-27-2023 Evaluation and management of inpatient [facility] Start: 08-27-2023 Evaluation and management of inpatient [facility] Start: 08-27-2023 Evaluation and management of inpatient [facility] Start: 08-26-2023 End: 09-02-2023 Evaluation and management of inpatient [facility] Start: 08-26-2023 End: 08-26-2023 ambulatory AB [facility] Start: 08-13-2023 End: 08-13-2023 ambulatory MD Suraj Llanos Work Phone: [facility] Work Phone: Start: 08-13-2023 End: 08-13-2023 Patient encounter procedure MD Suraj Llanos Work Phone: [facility] [facility] Work Phone: Start: 08-05-2023 Non-patient / Non-visit MD Sharmin Llanos Work Phone: [facility] Work Phone: Start: 08-05-2023 End: 08-05-2023 ambulatory [facility] Start: 07-30-2023 End: 07-30-2023 ambulatory [facility] Start: 07-13-2023 Non-patient / Non-visit MD Sharmin Llanos Work Phone: [facility] Work Phone: Start: 06-16-2023 End: 06-16-2023 ambulatory Suraj Llanos Other [employer] Other Start: 06-16-2023 Telephone encounter Suraj Llanos [facility] Start: 06-15-2023 End: 06-15-2023 ambulatory Suraj Llanos Other [employer] Other Start: 06-15-2023 Telephone encounter Suraj Llanos [facility] Start: 06-12-2023 End: 06-12-2023 ambulatory Suraj Llanos Other [employer] Other Start: 06-12-2023 Office outpatient vi sit 25 minutes Suraj Llanos [facility] Start: 06-12-2023 End: 06-12-2023 Patient encounter procedure MD Suraj Llanos Work Phone: [facility] Physician [facility] Start: 06-10-2023 End: 06-11-2023 ambulatory Santos R Dolemily Facility:[facility] Start: 06-10-2023 End: 06-10-2023 Patient encounter procedure Santos R Argelia [facility] Start: 06-09-2023 End: 06-09-2023 Patient encounter procedure [facility] [place] Work Phone: Start: 06-09-2023 End: 06-09-2023 ambulatory NON STAFF [facility] Other Start: 06-09-2023 Telephone encounter Suraj Shalonda [facility] Start: 05-21-2023 End: 05-21-2023 ambulatory Suraj Llanos Other [employer] Other Start: 05-21-2023 Telephone encounter Suraj Shalonda [facility] Start: 05-20-2023 End: 05-21-2023 ambulatory Santos Fang Epperson Facility:[facility] Start: 05-20-2023 End: 05-20-2023 Patient encounter procedure Santos Fang Epperson [facility] Start: 05-12-2023 End: 05-12-2023 ambulatory Suraj Llanos Other [employer] Other Start: 05-12-2023 Office outpatient vi sit 25 minutes Suraj Llanos [facility] Start: 05-12-2023 End: 05-12-[address] [facility] Work Phone: Start: 05-08-2023 End: 05-08-2023 ambulatory Suraj Llanos Other [employer] Other Start: 05-08-2023 Telephone encounter Suraj Llanos [facility] Start: 05-06-2023 End: 05-07-2023 ambulatory Santos R Dolce Facility:[facility] Start: 04-28-2023 End: 04-28-2023 ambulatory Suraj Llanos Other [employer] [employer] Other Start: 04-28-2023 Telephone encounter Suraj Llanos [facility] Start: 04-23-2023 End: 04-23-2023 Patient encounter procedure [facility] Start: 04-22-2023 End: 04-22-2023 ambulatory Suraj Llanos Other [employer] Other Start: 04-22-2023 Telephone encounter Suraj Llanos [facility] Start: 04-08-2023 End: 04-09-2023 ambulatory Santos R Dolce Facility:[facility] Start: 04-08-2023 End: 04-08-2023 Patient encounter procedure Santos R Dolce [facility] Start: 04-01-2023 End: 04-01-2023 ambulatory Suraj Llanos Other [employer] Other Start: 04-01-2023 Telephone encounter Suraj Llanos [facility] Start: 03-25-2023 End: 03-26-2023 ambulatory Santos R Dolce Facility:[facility] Start: 03-25-2023 End: 03-25-2023 Patient encounter procedure Santos R Dolce [facility] Start: 03-11-2023 End: 03-12-2023 ambulatory Santos R Dolce Facility:[facility] Start: 03-03-2023 End: 03-04-2023 ambulatory Ramiro D Dolce Facility:[facility] Start: 03-03-2023 End: 03-03-2023 Patient encounter procedure Ramiro Walteremily [facility] Start: 03-02-2023 End: 03-02-2023 ambulatory Ronaldo Arcos Other [employer] Other Start: 03-02-2023 Telephone encounter Ronaldo Arcos [facility] Start: 02-26-2023 End: 02-26-2023 Emergency department patient visit Derrick Benson Facility:[facility] Start: 02-26-2023 End: 02-26-2023 Emergency department patient visit Derrick Benson [facility] Start: 02-13-2023 End: 02-13-2023 ambulatory Suraj Llanos Other [employer] Other Start: 02-13-2023 Initial nursing faci lity care/day 35 minutes Suraj Llanos [facility] Start: 02-13-2023 Telephone encounter Suraj Llanos [facility] Start: 02-12-2023 End: 02-12-2023 ambulatory Suraj Llanos Other [employer] Other Start: 02-12-2023 Telephone encounter Suraj Lalnos [facility] Start: 02-05-2023 End: 02-06-2023 ambulatory Santos Epperson Facility:[facility] Start: 02-05-2023 End: 02-11-2023 Evaluation and management of inpatient Javon Edwards Facility:[facility] Start: 02-05-2023 End: 02-05-2023 Lab Drop off Santos Epperson [facility] Start: 02-04-2023 End: 02-18-2023 Pre-admission assessment Ramiro Walteremily [facility] Start: 01-27-2023 End: 01-27-2023 ambulatory Suraj Llanos Other [employer] Other Start: 01-27-2023 Office outpatient vi sit 15 minutes Suraj Llanos [facility] Start: 01-10-2023 End: 01-15-2023 Evaluation and management of inpatient Javon Edwards Facility:[facility] Start: 01-10-2023 End: 01-15-2023 Evaluation and management of inpatient Octavio MarxTio Walter [facility] Start: 12-09-2022 End: 12-09-2022 ambulatory Suraj Llanos Other [employer] Other Start: 12-09-2022 Telephone encounter Suraj Llanos [facility] Start: 11-26-2022 End: 11-26-2022 ambulatory Suraj Llanos Other [employer] Other Start: 11-26-2022 Office outpatient vi sit 15 minutes Suraj Llanos [facility] Start: 11-19-2022 End: 11-19-2022 ambulatory Suraj Llanos Other [employer] Other Start: 11-19-2022 Telephone encounter Suraj Llanos [facility] Start: 11-07-2022 End: 11-07-2022 ambulatory Suraj Llanos Other [employer] Other Start: 11-07-2022 Office outpatient vi sit 15 minutes Suraj Llanos [facility] Start: 10-22-2022 End: 10-23-2022 ambulatory Santos Epperson Facility:[facility] Start: 10-22-2022 End: 10-22-2022 Patient encounter procedure Santos Epperson [facility] Start: 10-16-2022 End: 10-16-2022 ambulatory Suraj Llanos Other [employer] Other Start: 10-16-2022 Telephone encounter Suraj Llanos [facility] Start: 10-14-2022 End: 10-14-2022 ambulatory Suraj Llanos Other [employer] Other Start: 10-14-2022 Telephone encounter Suraj Llanos [facility] Start: 10-10-2022 End: 10-11-2022 ambulatory SURAJ LLANOS Facility:[facility] Start: 10-10-2022 End: 10-10-2022 Patient encounter procedure SURAJ SHALONDA [facility] Start: 10-08-2022 End: 10-09-2022 ambulatory Santos R Dolce Facility:[facility] Start: 10-08-2022 End: 10-08-2022 Patient encounter procedure Santos R Dolce [facility] Start: 10-07-2022 End: 10-07-2022 ambulatory Suraj Shalonda Other [employer] Other Start: 10-07-2022 Telephone encounter Suraj Llanos [facility] Start: 09-24-2022 End: 09-25-2022 ambulatory Santos R Dolce Facility:[facility] Start: 09-03-2022 End: 09-04-2022 ambulatory Santos R Dolce Facility:[facility] Start: 09-03-2022 End: 09-03-2022 Patient encounter procedure Santos R Dolce [facility] Start: 09-02-2022 End: 09-03-2022 ambulatory Teddy HDZ Facility:[facility] Start: 09-02-2022 End: 09-02-2022 Patient encounter procedure Teddy HDZ [facility] Start: 08-27-2022 End: 08-28-2022 ambulatory Santos R Dolce Facility:[facility] Start: 08-27-2022 End: 08-27-2022 Patient encounter procedure Santos R Dolce [facility] Start: 08-13-2022 End: 08-18-2022 Evaluation and management of inpatient Noni KAISER Facility:[facility] Start: 08-13-2022 End: 08-14-2022 ambulatory Santos Epperson Facility:[facility] Start: 08-13-2022 End: 08-18-2022 Evaluation and management of inpatient Noni KAISER [facility] Start: 08-13-2022 End: 08-13-2022 Patient encounter procedure Santos Epperson [facility] Start: 08-08-2022 End: 08-08-2022 ambulatory Suraj Llanos Other [employer] Other Start: 08-08-2022 Telephone encounter Suraj Llanos [facility] Chief Load Dispatcher Start: 08-07-2022 End: 08-07-2022 ambulatory Ronaldo Arcos Other [employer] Other Start: 08-07-2022 Telephone encounter Ronaldo Garcia Infectious Disease Start: 08-06-2022 Office outpatient vi sit 10 minutes Jeb Hernandez [facility] Start: 08-06-2022 End: 08-07-2022 ambulatory Santos Epperson [facility] Other Start: 08-06-2022 End: 08-06-2022 Patient encounter procedure Santos Epperson [facility] Start: 08-04-2022 Telephone encounter Ronaldo Garcia Infectious Disease Start: 08-04-2022 End: 08-04-2022 ambulatory MD Suraj Llanos Work Phone: [facility] Work Phone: Start: 08-04-2022 End: 08-04-2022 Patient encounter procedure MD Suraj Llanos Work Phone: [facility] Work Phone: Start: 07-31-2022 End: 08-01-2022 ambulatory Mark Zepeda Facility:[facility] Start: 07-31-2022 End: 07-31-2022 Patient encounter procedure Mark Zepeda [facility] Start: 07-31-2022 End: 07-31-2022 ambulatory MD Suraj Llanos Work Phone: [facility] Work Phone: Start: 07-31-2022 End: 07-31-2022 Departed Referred MD Suraj Llanos Work Phone: [facility] Work Phone: Start: 07-30-2022 End: 07-30-2022 ambulatory MD Suraj Llanos Work Phone: [facility] Work Phone: Start: 07-30-2022 End: 07-30-2022 Discharged Recurring MD Suraj Llanos Work Phone: [facility]Infusion Therapy - O/P Work Phone: Start: 07-28-2022 End: 07-28-2022 ambulatory Suraj Llanos Other [employer] Other Start: 07-28-2022 Telephone encounter Suraj JENKINS [facility] Start: 07-25-2022 Telephone encounter Suraj Llanos [facility] Chief Load Dispatcher Start: 07-25-2022 End: 07-25-2022 ambulatory MD Suraj Llanos Work Phone: [facility] Work Phone: Start: 07-25-2022 End: 07-25-2022 Patient encounter procedure MD Suraj Llanos Work Phone: [facility] Work Phone: Start: 07-24-2022 Office outpatient vi sit 25 minutes Ronaldo Blank [facility] Start: 07-24-2022 End: 07-25-2022 ambulatory Mark Zepeda [facility] Other Start: 07-23-2022 End: 07-23-2022 ambulatory MD Suraj Llanos Work Phone: [facility] Work Phone: Start: 07-23-2022 End: 07-23-2022 Patient encounter procedure MD Suraj Llanos Work Phone: [facility] Work Phone: Start: 07-18-2022 End: 07-18-2022 ambulatory MD Suraj Llanos Work Phone: [facility] Work Phone: Start: 07-18-2022 End: 07-18-2022 Patient encounter procedure MD Suraj Llanos Work Phone: [facility] Work Phone: Start: 07-16-2022 End: 07-17-2022 ambulatory Santos Epperson Facility:[facility] Start: 07-14-2022 End: 07-14-2022 Emergency department patient visit Mark Vela Facility:[facility] Start: 07-14-2022 End: 07-14-2022 ambulatory MD Suraj Llanos Work Phone: [facility] Work Phone: Start: 07-14-2022 End: 07-14-2022 Patient encounter procedure MD Suraj Llanos Work Phone: [facility] Work Phone: Start: 07-11-2022 End: 07-11-2022 ambulatory MD Suraj Llanos Work Phone: [facility] Work Phone: Start: 07-11-2022 End: 07-11-2022 Patient encounter procedure MD Suraj Llanos Work Phone: [facility] Work Phone: Start: 07-09-2022 End: 07-10-2022 ambulatory Santos Fang Epperson Facility:[facility] Start: 07-07-2022 Telephone encounter Suraj JENKINS [facility] Start: 07-07-2022 End: 07-07-2022 ambulatory MD Suraj Llanos Work Phone: [facility] Work Phone: Start: 07-07-2022 End: 07-07-2022 Patient encounter procedure MD Suraj Llanos Work Phone: [facility] Work Phone: Start: 07-04-2022 End: 07-04-2022 ambulatory MD Suraj Llanos Work Phone: [facility] Work Phone: Start: 07-04-2022 End: 07-04-2022 Patient encounter procedure MD Suraj Llanos Work Phone: [facility] Work Phone: Start: 07-02-2022 End: 07-03-2022 ambulatory Santos Fang Epperson Facility:[facility] Start: 07-02-2022 End: 07-02-2022 ambulatory MD Suraj Llanos Work Phone: [facility] Work Phone: Start: 07-02-2022 End: 07-02-2022 Patient encounter procedure MD Suraj Llanos Work Phone: [facility] Work Phone: Start: 07-01-2022 End: 07-01-2022 Emergency department patient visit Mark Vela Facility:[facility] Start: 07-01-2022 End: 07-01-2022 Emergency department patient visit Mark Vela [facility] Start: 06-30-2022 End: 06-30-2022 ambulatory Suraj Llanos Other [employer] Other Start: 06-30-2022 Office outpatient vi sit 15 minutes Suraj JENKINS [facility] Start: 06-27-2022 End: 06-27-2022 ambulatory MD Suraj Llanos Work Phone: [facility] Work Phone: Start: 06-27-2022 End: 06-27-2022 Patient encounter procedure MD Suraj Llanos Work Phone: [facility] Work Phone: Start: 06-26-2022 End: 06-26-2022 ambulatory Ronaldo Arcos Other [facility] Other Start: 06-26-2022 Telephone encounter Ronaldo Arcos G Infectious Disease Start: 06-25-2022 End: 06-26-2022 ambulatory Santos R Dolce Facility:[facility] Start: 06-24-2022 End: 06-24-2022 ambulatory MD Suraj Llanos Work Phone: [facility] Work Phone: Start: 06-24-2022 End: 06-24-2022 Patient encounter procedure MD Suraj Llanos Work Phone: [facility] Work Phone: Start: 06-18-2022 End: 06-23-2022 Evaluation and management of inpatient Santos R Dolce Facility:[facility] Start: 06-18-2022 End: 06-19-2022 ambulatory Santos R Dolce Facility:[facility] Start: 06-18-2022 End: 06-23-2022 Evaluation and management of inpatient Alaa ALAONEIDAAD [facility] Start: 06-18-2022 End: 06-18-2022 Patient encounter procedure Santos R Dolce [facility] Start: 06-17-2022 End: 06-17-2022 ambulatory Suraj Shalonda Other [employer] Other Start: 06-17-2022 Telephone encounter Suraj Shalonda [facility] Start: 06-10-2022 End: 06-10-2022 ambulatory Suraj Shalonda Other [employer] Other Start: 06-10-2022 Telephone encounter Suraj Shalonda [facility] Start: 06-06-2022 End: 06-06-2022 ambulatory Suraj Shalonda Other [employer] Other Start: 06-06-2022 Office outpatient vi sit 25 minutes Suraj Llanos [facility] Start: 06-04-2022 End: 06-04-2022 Patient encounter procedure Santosjoshua Epperson [facility] Start: 05-28-2022 End: 05-28-2022 Patient encounter procedure Santos Epperson [facility] Start: 05-21-2022 End: 05-24-2022 Pre-admission assessment Santosjoshua Epperson [facility] Start: 05-20-2022 End: 05-20-2022 Patient encounter procedure Ramiro Epperson [facility] Start: 04-29-2022 End: 04-29-2022 Patient encounter procedure Ramiro Epperson [facility] Start: 04-14-2022 End: 04-18-2022 Evaluation and management of inpatient María CORTEZ [facility] Start: 04-08-2022 End: 04-08-2022 Patient encounter procedure MD Suraj Llanos Work Phone: [facility] Work Phone: Start: 04-01-2022 End: 04-02-[address] JANET GOMEZ Facility:[facility] Start: 03-21-2022 End: 03-21-2022 ambulatory MD Suraj Llanos Work Phone: [facility] Work Phone: Start: 03-21-2022 End: 03-21-2022 Patient encounter procedure MD Suraj Llanos Work Phone: [facility] [place] Start: 02-10-2022 End: 02-10-2022 ambulatory Kwabena Debora Other [employer] Other Start: 02-10-2022 Telephone encounter Kwabena Debora [facility] Start: 01-24-2022 ambulatory NONE LISTED REQUEST Facility:[facility] Start: 01-20-2022 End: 01-20-2022 ambulatory Kwabena Debora Other [employer] Other Start: 01-20-2022 Telephone encounter Kwabena Debora [facility] Start: 01-11-2022 End: 01-12-2022 ambulatory NONE LISTED REQUEST Facility:[facility] Start: 01-09-2022 End: 01-11-[address] JANET GOMEZ Facility:[facility] Start: 01-06-2022 End: 01-06-2022 ambulatory Kwabena Debora Other [employer] Other Start: 01-06-2022 Telephone encounter Kwabena Debora [facility] Start: 12-27-2021 End: 01-08-2022 ambulatory ASHWIN EDWARDS Facility:[facility] Start: 12-16-2021 End: 12-16-2021 ambulatory Kwabena Debora Other [employer] Other Start: 12-16-2021 Telephone encounter Kwabena Debora [facility] Start: 12-11-2021 End: 12-11-2021 ambulatory Kwabena Debora Other [employer] Other Start: 12-11-2021 Telephone encounter Kwabena Debora [facility] Start: 11-30-2021 End: 12-02-2021 Evaluation and management of inpatient Henri MORAN [facility] Start: 11-21-2021 End: 11-21-2021 ambulatory NATHAN DORMAN Facility:[facility] Start: 11-07-[address] SURAJ LLANOS Facil ity:[facility] Start: 11-01-2021 End: 11-02-2021 ambulatory NATHAN DORMAN Facility:[facility] Start: 10-18-2021 End: 10-30-2021 Evaluation and management of inpatient SURAJ LLANOS Facility:[facility] Start: 10-10-[address] SURAJ Friedman ity:[facility] Start: 09-30-2021 End: 10-01-[address] JANET GOMEZ Facility:[facility] Start: 09-16-2021 End: 09-16-2021 ambulatory Kwabena Debora Other [employer] Other Start: 09-16-2021 Telephone encounter Kwabena Debora [facility] Start: 09-06-2021 End: 09-07-2021 ambulatory NATHAN DORMAN Facility:[facility] Start: 08-26-2021 End: 08-26-2021 ambulatory Kwabena Debora Other [employer] Other Start: 08-26-2021 Telephone encounter Kwabena Debora [facility] Start: 08-20-2021 End: 08-29-2021 Evaluation and management of inpatient ROSEMARY BARRON Facility:[facility] Start: 08-20-[address] SURAJ LLANOS Facil ity:[facility] Start: 2021 End: [address] JANET GOMEZ Facility:[facility] Start: 08-01-2021 End: 08-01-2021 Patient encounter procedure Teddy HDZ [facility] Start: 07-30-2021 End: 07-31-[address] JANET GOMEZ [facility] Other Start: 07-30-2021 Telephone encounter Kwabena Debora [facility] Start: 07-22-2021 End: 07-22-2021 ambulatory Kwabena Debora Other [facility] Other Start: 07-22-2021 Telephone encounter Kwabena Debora [facility] Start: 07-17-2021 End: 07-25-2021 Evaluation and management of inpatient [facility] Facility:[facility] Start: 07-15-2021 End: 07-15-2021 ambulatory Kwabena Debora Other [facility] Other Start: 07-15-2021 Telephone encounter Kwabena Debora [facility] Start: 07-11-[address] SURAJ LLANOS Facil ity:[facility] Start: 06-27-2021 End: 06-27-2021 ambulatory Kwabena Debora Other [employer] Other Start: 06-27-2021 Telephone encounter Kwabena Debora [facility] Start: 06-26-2021 [facility] Start: 06-26-2021 End: 06-26-[address] SURAJ LLANOS [facility] Other Start: 06-19-2021 End: 06-20-[address] ZARINA CHUNG Facility:[facility] Start: 06-18-2021 End: 06-19-[address] SURAJ LLANOS Facility:[facility] Start: 06-13-[address] SURAJ LLANOS Facil ity:[facility] Start: 04-18-2021 End: 04-19-[address] Karin Rdz Facility:[facility] Procedures Date Procedure Procedure Detail Performing Clinician Start: 07-12-2024 Follow-up visit JANET BENITEZMonika Start: 06-06-2024 [facility] Start: 04-27-2024 Follow[facility] Start[facility] 03-23-2024 Follow[facility] Start: 02-01-2024 Follow[facility] Start: 12-28-2023 Plain X-ray of bilat eral hands MD Suraj Llanos Work Phone: Start: 12-22-2023 [facility] Start: 12-14-2023 Follow[facility] Start: 11-11-2023 Acid Fast Culture MD Aleyda Llanos Work Phone: Start: 11-11-2023 Acid Fast Smear MD Ramiro Llanos Work Phone: Start: 11-11-2023 AFB Specimen Processing MD Suraj Llanos Work Phone: Start: 11-10-2023 Blood Culture 1 MD Ramiro Llanos Work Phone: Start: 11-10-2023 Blood Culture 2 MD Ramiro Llanos Work Phone: Start: 10-12-2023 Follow-up visit [facility] Start: 08-26-2023 Follow[facility] Start: 08-05-2023 Follow[facility] Start: 08-13-2022 Debridement of wound of skin Alaa ALAHMAD Start: 06-20-2022 Incision AND drainage A roxane ALAHMAD Start: 05-23-2022 Incision AND drainage K tyson Sabaemily Start: 04-16-2022 Amputation of hallux Gomez giles AMIR Start: 04-08-2022 Plain X-ray of left hip MD Suraj Llanos Work Phone: Start: 04-08-2022 X-ray of lumbar spin e, two or three views MD Suraj Llanos Work Phone: Start: 11-02-2019 Transplanted skin (b lavinia structure) Teddy HDZ Comment on above: EPIDERMAL SKIN GRAFT CELLUTOME Start: 07-10-2015 Colonoscopy Homar brito DPM Work Phone: Amputated toe (finding) Otf HDZ Appendectomy Teddy HDZ Bypass of stomach Teddy Crowley Colonoscopy Teddy HDZ Cystoscopy Teddy HDZ Plan of Treatment Date Care Activity Detail Author Start: 07-09-2025 Screening for malign ant neoplasm of colon [facility] Start: 10-19-2024 Urine screening for protein Diabetes: Urine Protein Screening [facility] Start: 07-25-2024 End: 07-25-2024 Patient encounter procedure 07/25/2024 11:30 AM EDT Office Visit [facility] [address] [place] [address] Laz Romo MD [address] [place] [address] [facility] Start: 07-06-2024 End: 07-06-2024 Patient encounter procedure 07/06/2024 1:15 PM EST Office Visit [facility] [address] [place] [id number] Homar Goodrich DPM [address] [place], [place] [id number] [facility] Start: 04-26-2024 End: 04-26-2024 Patient encounter procedure 04/26/2024 1:50 PM EST Office Visit [facility] [address] [place] [address] Laz Romo MD [address] [place] [address] [facility] Start: 04-22-2024 End: 04-22-2024 Patient encounter procedure 04/22/2024 11:15 AM EST [facility] [address] [place] [phone] Homar Goodrich, DPJoshua [address] [place], [place] [id number] Arrived [facility] Comment on above: Arrived Start: 04-04-2024 End: 04-04-2024 Patient encounter procedure 04/04/2024 4:15 PM EST Office Visit [facility] [address] [place] [phone] Homar Goodrich, HAMZAH [address] [place] [address] Arrived [facility] Comment on above: Arrived Start: 03-02-2024 [facility] Start: 01-10-2024 Influenza vaccination Influenza Vacc ine [facility] Start: 11-27-2023 Hemoglobin A1c measurement Diabetes: Hemoglobin A1C [facility] Start: 11-10-2023 Blood Culture 1 Blood Culture 1 [facility] Start: 11-10-2023 Blood Culture 2 Blood Culture 2 [facility] Start: 07-19-2022 Urine screening for protein Diabetes: Urine Protein Screening [facility] Start: 08-13-2011 Administration of varicella zoster vaccine Zoster (Shingles) Vaccine (1 of 2) [facility] Start: 1980 DTaP,Tdap and Td Vaccines (1 - Tdap) DTaP,Tdap and Td Vaccines (1 - Tdap) [facility] Start: 08-13-1979 Adult BMI Screening Adult BMI Screen ing [facility] Start: 1973 Depression Screening Depression Scre ening [facility] Start: 1973 Tobacco Screening Tobacco Screening [facility] Start: 08-13-1971 Glaucoma screening Diabetes: R etinopathy Screening [facility] Start: 1961 Medicare Annual Well ness (AWV) Medicare Annual Wellness (AWV) [facility] Start: 1960 Screening for malign ant neoplasm of colon [facility] IgG [Mass/volume] in Serum or Plasma [facility] IgG subclass 1 [Mass/volume] in Serum [facility] IgG subclass 2 [Mass/volume] in Serum [facility] IgG subclass 3 [Mass/volume] in Serum [facility] Immunoglobulin G subclass, G4 measurement [facility] Immunizations Immunization Date Immunization Notes Care Provider Fa cili 02-29-2024 influenza, injectabl e, quadrivalent, preservative free Homar Rusher DPM Work Phone: [facility] 02-29-2024 SARS-COV-2 (COVID-19 ) vaccine, mRNA, spike protein, LNP, PF, 50 mcg/0.5 mL Homar Rusher DPM Work Phone: [facility] 02-19-2023 ABRYSVO - Respirator y syncytial virus (RSV), vaccine, bivalent, protein subunit RSV prefusion F, diluent reconstituted, 0.5 mL, PF Homar Rusher DPM Work Phone: [facility] 02-19-2023 influenza, injectabl e, quadrivalent, preservative free Homar Rusher DPM Work Phone: [facility] 02-19-2023 Pneumococcal Conjuga te PCV 20 Homar Rusher DPM Work Phone: [facility] 02-19-2023 SARS-COV-2 (COVID-19 ) vaccine, mRNA, spike protein, LNP, PF, 50 mcg/0.5 mL Homar Rusher DPM Work Phone: [facility] 06-02-2022 zoster vaccine recombinant Homar Rusher DPM Work Phone: [facility] 02-08-2022 COVID-19 Vaccine Moderna - Documentation Purposes Only Suraj Llanos Other [facility] 02-08-2022 influenza virus vaccine, split virus (incl. purified surface antigen) Suraj Llanos Other [facility] Other 10-01-2022 influenza virus vaccine, unspecified formulation MD Suraj Llanos Work Phone: [facility] 02-08-2022 zoster vaccine, live Suraj Llanos Other [facility] 03-05-2021 influenza, injectabl e, quadrivalent, preservative free Homar Rusher DPM Work Phone: [facility] 09-08-2020 SARS-CoV-2 (COVID-19 ) Ad26 vaccine, recombinant Teddy HDZ [facility] 04-10-2020 influenza virus vaccine, unspecified formulation Teddy RICE [facility] 03-06-2020 influenza virus vaccine, split virus (incl. purified surface antigen) Suraj Llanos Other [facility] Other 03-06-2020 influenza virus vaccine, unspecified formulation MD Suraj Llanos Work Phone: [facility] 04-13-2019 influenza, injectabl e, quadrivalent, preservative free Homar Rusher DPM Work Phone: [facility] 03-14-2019 influenza, injectabl e, quadrivalent, contains preservative Homar Rusher DPM Work Phone: [facility] 02-08-2018 influenza virus vaccine, unspecified formulation [facility] 02-19-2017 influenza, injectabl e, quadrivalent, contains preservative [facility] 03-11-2016 influenza, injectabl e, quadrivalent, preservative free [facility] 03-11-2016 pneumococcal conjuga te vaccine, 13 valent [facility] 02-08-2015 influenza, injectabl e, quadrivalent, contains preservative Homar Rusher DPM Work Phone: [facility] 05-18-2013 tetanus and diphther ia toxoids, adsorbed, preservative free, for adult use (5 Lf of tetanus toxoid and 2 Lf of diphtheria toxoid) Suraj Llanos Other [facility] 05-11-2011 pneumococcal polysaccharide vaccine, 23 valent Homar Goodrich DPM Work Phone: [facility] Payers Date Payer Category Payer [facility] [id number] 2006 Medicare [id number] [id number]. [id number] 1961 Unknown [id number] 2.16.840.1.073831.3.579.2.647 1961 Unknown [id number] 2.16.840.1.587969.3.579.2.647 1961 Unknown [id number] 2.16.840.1.396261.3.579.2.647 1961 Unknown [id number] 2.16.840.1.608614.3.579.2.593 1961 Unknown [id number] 2.16.840.1.406212.3.579.2.593 1961 Unknown [id number] 2.16.840.1.340373.3.579.2.593 1961 Unknown [id number] 2.16.840.1.239444.3.579.2.593 1961 Unknown [id number] 2.16.840.1.259318.3.579.2.593 1961 Unknown [id number] 2.16.840.1.684325.3.579.2.593 1961 Unknown [id number] 2.16.840.1.814883.3.579.2.593 1961 Unknown [id number] 2.16.840.1.057602.3.579.2.593 1961 Unknown [id number] 2.16.840.1.339551.3.579.2.593 1961 Unknown [id number] 2.16.840.1.982708.3.579.2.593 1961 Unknown [id number] 2.16.840.1.189948.3.579.2.593 1961 Unknown [id number] 2.16.840.1.289915.3.579.2.593 1961 Unknown [id number] 2.16.840.1.515245.3.579.2.593 1961 Unknown [id number] 2.16.840.1.708795.3.579.2.593 1961 Unknown [id number] 2.16.840.1.346228.3.579.2.593 1961 Unknown [id number] 2.16.840.1.874745.3.579.2.593 1961 Unknown [id number] 2.16.840.1.615294.3.579.2.593 1961 Unknown [id number] 2.16.840.1.367658.3.579.2.593 1961 Unknown [id number] 2.16.840.1.597622.3.579.2.593 1961 Unknown [id number] 2.16.840.1.874289.3.579.2.593 1961 Unknown [id number] 2.16.840.1.789736.3.579.2.593 1961 Unknown [id number] 2.16.840.1.417205.3.579.2.727 1961 Unknown [id number] 2.16.840.1.629138.3.579.2.727 1961 Unknown [id number] 2.16.840.1.317569.3.579.2.727 1961 Unknown [id number] 2.16.840.1.351148.3.579.2.727 1961 Unknown [id number] 2.16.840.1.885688.3.579.2.727 1961 Unknown [id number] 2.16.840.1.786949.3.579.2.727 1961 Unknown [id number] 2.16.840.1.038903.3.579.2.727 1961 Unknown [id number] 2.16.840.1.565409.3.579.2.727 1961 Unknown [id number] 2.16.840.1.039379.3.579.2.727 1961 Unknown [id number] 2.16.840.1.643112.3.579.2.727 1961 Unknown [id number] 2.16.840.1.258414.3.579.2.727 1961 Unknown [id number] 2.16.840.1.228566.3.579.2.727 1961 Unknown [id number] 2.16.840.1.120281.3.579.2.727 1961 Unknown [id number] 2.16.840.1.191527.3.579.2. 1961 Unknown [id number] 2.16.840.1.725325.3.579.2. 1961 Unknown [id number] 2.16.840.1.047674.3.579.2. 1961 Unknown [id number] 2.16.840.1.946175.3.579.2 1961 Unknown [id number] 2.16.840.1.770471.3.579.2. 1961 Unknown [id number] 2.16.840.1.996789.3.579.2 1961 Unknown [id number] 2.16.840.1.577699.3.579.2 1961 Unknown [id number] 2.16.840.1.181505.3.579.2 1961 Unknown [id number] 2.16.840.1.210844.3.579.2 1961 Unknown [id number] 2.16.840.1.820334.3.579.2 1961 Unknown [id number] 2.16.840.1.839102.3.579.2 1961 Unknown [id number] 2.16.840.1.831401.3.579.2 1961 Unknown [id number] 2.16.840.1.826641.3.579.2. 1961 Unknown [id number] 2.16.840.1.891602.3.579.2 1961 Unknown [id number] 2.16.840.1.241430.3.579.2. 1961 Unknown [id number] 2.16.840.1.472066.3.579.2 1961 Unknown [id number] 2.0.1.621330.3.579.2.727 1961 Unknown [id number] 2.0.1.598758.3.579.2.727 1961 Unknown [id number] 2.840.1.715409.3.579.2.1259 1961 Unknown [id number] 2.0.1.314990.3.579.2.1259 1961 Unknown [id number] .0.1.597650.3.579.2.1259 1959 Medicaid [id number] 1958 Medicare [id number] 1959 Medicare [id number] 1959 Self-pay [id number] Medicare Medicare Nonpatient [id number] Unknown [id number] 06.26.830.1.730030.3.579.2.531 Unknown [id number] .1.657574.3.579.2.531 Unknown [id number] 06.26.830.1.143800.3.579.2.531 Unknown [id number] 06.26.830.1.244875.3.579.2.531 Unknown [id number] 06.26.830.1.983022.3.579.2.531 Social History Date Type Detail [facility] Start: 1960 Sex Assigned At Male [facility] Start: 08-01-2021 End: 06-28-2024 Tobacco smoking status Ex-smoker (finding) [facility] Start: 06-20-2020 End: 03-07-2024 Sex Assigned At Male [facility] Other End: 06-17-2000 History of tobacco use Current smoker [facility] End: 06-17-2000 History of tobacco use Cigarette Smoker [facility] Start: 06-20-2020 End: 03-07-2024 Cigarettes smoked current (pack per day) - Reported 1 [facility] Start: 03-07-2024 End: 04-12-2024 Alcoholic beverage intake Lifetime non-drinker (finding) [facility] Start: 03-07-2024 Tobacco Comment Quit 07/2008 [facility] Start: 1960 Sex assigned at Not on file [facility] Start: 01-06-2023 Sexual orientation Homosexual (finding) [facility] Start: 11-19-2017 Tobacco use and exposure Smokeless tobacco non-user [facility] Start: 08-31-2021 Alcoholic beverage intake Current non-drinker of alcohol (finding) [facility] Childcare Unknown [facility] Start: 12-12-2014 End: 07-13-2024 Sex Male (finding) [facility] Medical Equipment Procedure Code Equipment [...] Assessment Result Facility 02-26-2023 Functional Status N/A [facility] 01-10-2023 Functional Status No [facility] 01-10-2023 Functional Status [facility] 08-13-2022 Functional Status N/A [facility] 08-13-2022 Functional Status [facility] 07-01-2022 Functional Status N/A [facility] 06-18-2022 Functional Status N/A [facility] 06-18-2022 Functional Status [facility] 04-14-2022 Functional Status N/A [facility] 11-30-2021 Functional Status N/A [facility] 11-30-2021 Functional Status [facility] Clinical Notes 06-26-2021 to 07-12-2024 Note Date & Type Note Facility 07-12-2024 Note [facility] 07-05-2024 Evaluation note Diagnosis Onset Date Resolution Diabetic neuropathy associated with type 2 diabetes mellitus acute July 05, 2024 1:21pm CHF (congestive heart failure) chronic July 05, 025 1:21pm Diabetic foot ulcer chronic 2024 1:21pm Diabetes mellitus with ulcer of lower extremity acute July 132024 10:22am Organ-limited amyloidosis acute July 13, 2024 10:22am Osteoarthritis of right knee acute July 13, 2024 10:22am CHF (congestive heart failure) chronic July 13, 2024 10:22am [facility] Work Phone: [phone]) 372-462102-10-2025 Telephone encounter Note* Telephone Encounter - Yuliana Roger - 06/20/2024 2:47 PM EST Feliciano TREVINO please and thank you! Matt has been in and out of the hospital and trying to makeit in. Thanks! [facility] [id number] Miscellaneous Notes* Telephone Encounter - Yuliana Roger - 06/20/2024 2:47 PM EST Feliciano coronado PA please and thank you! Matt has been in and out of the hospital and trying to makeit in. Thanks! documented in this encounterFreeman Orthopaedics & Sports [id number] [facility]-2025 Note [facility]02-02-2025 [facility]-20[facility]-20[facility] Note [facility]02-01-2025 [facility]Un[facility]02-01-2025 [facility]Un[facility]01-31-2025 Note [facility]01-31-2025 NoteUn[facility]01-30-2025 NoteUn[facility]01-30-2025 Note [facility]01-30-2025 NoteUn[facility]01-29-2025 NoteUn[facility]01-29-2025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 right leg neuro: loss of protective sensation msk: tma right Results Review xray compared to august large changes in lisfranc and 1st ray due to charcot. MRI is pending for today Impression and Plan This 65 y/o male diabetic with h/o recent SD, htn, chronic kidney disease with recent new [...] needed pt will need home health for thu dressings with betadine to the wound soaked gauze kerlix cast padding x2 and double 6inch lorenza for mirna compression dressing below the knee pt needs to be barely weight bearing just to the bathroom pt prefers [facility] home health Extracted from: Title:APSO Note Author:VAMSI GILBERT, Shimonfo Date: 62-year-old morbidly obese C aucasian male with history of coronary artery disease status post stent x2, chronic combined systolic and diastolic congestive heart failure, paroxysmal atrial fibrillation on apixaban, COPD, obstructive sleep apnea on BiPAP, chronic hypoxic respiratory failure on as needed home oxygen, ksn-jyroybx-tuzppjtcn diabetes mellitus, hypertension, hyperlipidemia, bipolar disorder, anxiety, [...] Directed, Routine, Start date 01/10/23 15:06:00 EDT [facility] Hospital Care/Day Moderate 35 Minutes 59708 Wound Care Routine Wound Culture 2. Osteomyelitis [...] Start date 01/10/23 15:06:00 EDT Consult to Registered Phlebotomist Part Time [facility] Hospital Care/Day Moderate 35 Minutes 48529 Wound Culture 3. COPD without exacerbation (J44.9: Chronic obstructive pulmonary disease, unspecified) Stable. Continue nebulizer treatments. Ordered: [facility] Hospital Care/Day Moderate 35 Minutes 17767 4. Chronic diastolic heart failure (I50.32: Chronic diastolic (congestive) heart failure) Chronic combined systolic and diastolic congestive heart failure. Stable. Continue on Aldactone, Bumex. Ordered: [facility] Hospital Care/Day Moderate 35 Minutes 67649 5. Coronary artery disease (I25.10: Atherosclerotic heart disease of [place] coronary artery without angina pectoris) Status post stent x2. Stable. Continue on aspirin and Lipitor. Ordered: [facility] Hospital Care/Day Moderate 35 Minutes 42503 6. Diabetes (E11.9: Type 2 diabetes mellitus [...] deep vein thrombosis (DVT) prophylaxis (Z79.899: 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) Apixaban. Disposition: Pending MRI of the right foot and podiatry consult. I discussed the diagnosis and plan of care with the patient at the bedside. Moderate level of MDM based on addressing above issues. This documentation was transcribed using voice recognition software. Several attempts were made to ensure accuracy. However inadvertent computerized upper leather cutter errors may be present. Mimi Colin. Hospitalist. Extracted from: Title:Admission H & P Author:Mimi COLIN MD Date:01/10/23 62-year-old morbidly obese C aucasian male with history of coronary artery disease status post stent x2, chronic combined systolic and diastolic congestive heart failure, paroxysmal atrial fibrillation on apixaban, COPD, obstructive sleep apnea on BiPAP, chronic hypoxic respiratory failure on as needed home oxygen, ult-qsqklrp-pllykimii diabetes mellitus, hypertension, hyperlipidemia, bipolar disorder, anxiety, [...] EDT Initial Hospital Care/Day High 75 Minutes 33653 Wound Care Routine Wound Culture 2. Osteomyelitis [...] Start date 01/10/23 15:06:00 EDT Consult to Registered Phlebotomist Part Time Initial Hospital Care/Day High 75 Minutes 05682 Wound Culture 3. COPD without exacerbation (J44.9: Chronic obstructive pulmonary disease, unspecified) Stable. Nebulizer treatments as needed. Ordered: Initial Hospital Care/Day High 75 Minutes 60120 4. Chronic diastolic heart failure (I50.32: Chronic diastolic (congestive) heart failure) Chronic combined systolic and diastolic congestive heart failure Stable. Continue on Bumex and Aldactone. Ordered: Initial Hospital Care/Day High 75 Minutes 59654 5. Coronary artery disease (I25.10: Atherosclerotic heart disease of [place] coronary artery without angina pectoris) Status post stent x2. Stable. Continue on aspirin, Lipitor. Ordered: Initial Hospital Care/Day High 75 Minutes 71751 6. Diabetes (E11.9: Type 2 diabetes mellitus [...] deep vein thrombosis (DVT) prophylaxis (Z79.899: Other snf (current) drug therapy) Apixaban. Disposition: The patient [...] made to ensure accuracy. However inadvertent computerized upper leather cutter errors may be present. Mimi Colin. Hospitalist. [...] Tests Pending * Vancomycin Level Trough 01/17/23 [facility]09-07-2023 Hospital Discharge instructions Patient Education 01/15/2023 10:03:30 [...] Follow these instructions at home: Medicines Take jdai-egv-dhkzwrn and prescription medicines as told by your [...] and water are not available, use hand psychiatric arnp. Keep any open areas, cuts, or wounds [...] provider. Document Revised: 07/12/2020 Document Reviewed: 07/12/2020 [employer] Patient Education 2022 Code42. 01/15/2023 10:03:24 Cellulitis, Adult Cellulitis, Adult Cellulitis [...] Follow these instructions at home: Medicines Take glre-gxy-veskcgo and prescription medicines only as told by [...] such as antibiotic medicines or antihistamines. Take wbja-rog-gcrhfmg and prescription medicines only as told by [...] provider. Document Revised: 02/06/2022 Document Reviewed: 02/06/2022 [employer] Patient Education 2022 Code42. Follow Up Care 01/10/2023 12:12:35 With:Podiatry as scheduled January 21 Address:Unknown When: Unknown With:SURAJ LLANOS Address: [address] [place] [id number]- Business (1) When:01/22/2023 10:30:00 Comments:Call for followup appointment [facility]09-07-2023 [facility]:Result Comment: Electronically Signed By: Javon Edwards DO\.br\Date and Time Signed: 01/15/23 09:55 [id number] [facility]Comment on above:Result Comment: Electronically Signed By: VAMSI GILBERT, Mimi\.br\Date and Time Signed: 01/10/23 15:26 [id number] Evaluation note* Encounter Date Diagnosis Assessment Notes Treatment Notes Treatment Clinical Notes Oct, Hypertension (ICD-10 - I10) chronic problem. Continue present meds. Oct, CHF (congestive heart failure) (ICD-10 - I50.9) Pt notes increased symptoms. He will contact his fitting room maintenance mechanic and suspects he will be admitted in the near future for diuresis. Oct, Primary insomnia (ICD-10 - F51.01) states he is stable on his present dose. 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 Moxie Jean Other 05-30-2023 Evaluation note* Encounter Date Diagnosis Assessment Notes Treatment Notes Treatment Clinical Notes September, Pain, joint, knee, right (ICD-10 - M25.561) September, Right hip pain (ICD-10 - M25.551) [employer] [facility] Other 04-10-2023 Evaluation + Plan noteExtracted from: Title:Discharge Note Author:KIMBERLY GILBERT, Kennedy Steven te:08/18/22 Discharge To, Anticipated II - Home [...] Oral, Daily ergocalciferol 50,000 intl units Cap, 08842 International_Unit= 1 cap(s), Oral, q7day ferrous sulfate [...] tab(s), Oral, Daily fluticasone Nasal 0.05 mg/inh [place], 2 spray(s), Nasal, Daily, PRN gabapentin 800 [...] Oral, TID, PRN With When Contact Information Reginaldoasuncion Art Within 1 week [address] [place] [address]- Business (1) Additional Instructions: Call for followup appointment Call physician if symptoms worsen EMILIANA Narvaez In 1 week [facility] c[facility]o [facility] [address] [facility] [place] [address]- Additional Instructions: An appointment request was [facility] to [facility]. The office will contact you with an appointment. Thank you! Ronaldo Arcos M.D, INF Within 2 to 4 weeks [address] [facility] [place] [address]- Additional Instructions: SURAJ LLANOS, YANETH Within 2 to 4 days [address] [place] [address]- Business (1) Additional Instructions: No PCP required [...] Extracted from: Title:CSB post op Author:Alex Goldstein MD. Date:08/14/22 Plan Transfer/Discharge: Transfer/Discharge Discharge when meets criteria ( From PACU to floor ). Extracted from: Title:CSB GA Author:Alex Goldstein MD. Date:08/14/22 Plan [place] [employer] Anesthesiologists (ASA) physical status classification: [...] All Problems (Selected) Anxiety / SNOMED CT 03491579 / Confirmed Aortic root dilation / SNOMED CT 262556906 / Confirmed Atrial fibrillation / SNOMED CT 49225657 / Confirmed BPH (benign prostatic hyperplasia) / SNOMED CT 142021848 / Confirmed BPH with urinary obstruction / SNOMED CT 6158643008 / Confirmed BPH without urinary obstruction / SNOMED CT 6514316116 / Confirmed Bipolar disorder / SNOMED CT 58982580 / Confirmed BMI 35.0-35.9,adult / SNOMED CT 692896934 / Confirmed CAD - Coronary artery disease / SNOMED CT 5855253322 / Confirmed Chronic anemia / SNOMED CT 399394449 / Confirmed Chronic diastolic heart failure / SNOMED CT 4824573271 / Confirmed COPD (chronic obstructive pulmonary disease) / SNOMED CT 86574986 / Confirmed COPD without exacerbation / SNOMED CT 58780339 / Confirmed Chronic systolic heart failure / SNOMED CT 2784972341 / Confirmed CHF (congestive heart failure) / SNOMED CT 72170053 / Confirmed Coronary artery disease / SNOMED CT 44256732 / Confirmed DVT (deep venous thrombosis) / SNOMED CT 125512732 / Confirmed Diabetes / SNOMED CT 256456852 / Confirmed Diabetic peripheral neuropathy / SNOMED CT 7443911430 / Confirmed DM - Diabetes mellitus / SNOMED CT 165724767 / Confirmed Flank pain / SNOMED CT 124623791 / Confirmed Chronic GERD / SNOMED CT 659177403 / Confirmed Personal history of kidney stones / SNOMED CT 0843725924 / Confirmed History of DVT in adulthood / SNOMED CT 5117560283 / Confirmed Hyperlipidemia / SNOMED CT 04026334 / Confirmed Hypertension / SNOMED CT 0212643626 / Confirmed Incomplete bladder emptying / SNOMED CT 130046482 / Confirmed Incontinence without sensory awareness / SNOMED CT 9008787538 / Confirmed Depression with anxiety / SNOMED CT 591699934 / Confirmed Morbid obesity due to excess calories / SNOMED CT 603611658 / Confirmed SD (myocardial infarction) / SNOMED CT 02263640 / Confirmed Diabetic neuropathy / SNOMED CT 8841801317 / Confirmed Nocturia / SNOMED CT 872908070 / Confirmed ROBYN on CPAP / SNOMED CT 518629727 / Confirmed Obstructive sleep apnea / SNOMED CT 730220510 / Confirmed Osteomyelitis / SNOMED CT 72757506 / Confirmed PAF (paroxysmal atrial fibrillation) / SNOMED CT 880331926 / Confirmed Urinary retention / SNOMED CT 027434920 / Confirmed Sleep apnea / SNOMED CT 640191213 / Confirmed Urgency incontinence / SNOMED CT 299436370 / Confirmed Objective vasc: erythema edema right [...] advanced closure who was sent from his manager floral office to emergency room to be admitted [...] Date:08/27/2022 11:15:00 AM Scheduled Provider:Santos Epperson DPM [facility] Appointment Type:WC Follow Up Visit (FT) Appointment Date:09/02/2022 02:15:00 PM Scheduled Provider:Teddy HDZ MD Location:[facility] Appointment Type:URO Office Visit [facility]04-10-2023 NoteFisher [facility] CenterComment on above:Result Comment: Electronically Signed By: Kennedy HARRIS MD\.br\Date and Time Signed: 08/18/22 10:32 [id number] Hospital Discharge instructions Patient Education 08/18/2022 10:30:37 [...] Follow these instructions at home: Medicines Take kvvj-muw-vuutxqg and prescription medicines only as told by [...] and water are not available, use hand psychiatric arnp. Do not use any products that contain [...] 04/27/2006 Document Revised: 05/13/2018 Document Reviewed: 05/06/2018 C[employer] Patient Education 2020 Code42. Follow Up Care 08/13/2022 09:09:20 With:Birgit Cordova Address: [address] [place] [phone]- Business (1) When:1 week Comments:Call for followup appointmentCall physician if symptoms worsen With:EMILIANA Narvaez Address: [facility]: c/o [address] [place] [address]- When:Within 1 Week(s) Comments:An appointment request was sent to [facility]. The office will contact you with an appointment. Thank you! With:Ronaldo Arcos M.D, INF Address: [address] [place] [address] [place] [address]- When:2 to 4 weeks With:YANETH AMIN Address: [address] [place] [address]- Business (1) When:2 to 4 days Comments:No PCP required for surgery patient. Please follow up with ARGELIA. Thank you! [facility]04-06-2023 NoteOT order received and chart review completed. Pt is scheduled for a podiatry procedure this date d/t rt foot osteomyelitis. Will check back 08/15/22 to see if pt more appropriate for OT eval tomorrow.[facility]04-06-2023 NoteOrder received, chart reviewed. Pt. is scheduled for revisional R TMA with delayed closure today (08/14/22) at 1130. Will perform PT evaluation as appropriate at a later date.[facility]04-05-2023 NoteJohn [facility] CenterComment on above: Result Comment: Electronically Signed By: THEE GILBERT, Greyson.domenic\Date and Time Signed: 08/13/22 13:[id number] Evaluation note* Encounter Date Diagnosis Assessment Notes Treatment Notes Treatment Clinical Notes Jul, Obstructive sleep apnea (ICD-10 - G47.33) Jul, BMI 45.0-49.9, adult (ICD-10 - Z68.42) Moxie Jean Other 03-16-2023 Evaluation note* Encounter Date Diagnosis [...] needed. Patient only about a third to penitentiary through the planned 6-week treatment course. Informed patient to let me know how the wound VAC continues to work I still we will plan on stopping vancomycin at 6 weeks and less I can stop it sooner based on potential further surgical excision Jul, Receiving intravenous antibiotic treatment at home (ICD-10 - Z79.2) Moxie Jean Other 02-27-2023 Evaluation note* Encounter Date Diagnosis Assessment Notes Treatment Notes Treatment Clinical Notes Jun, UTI symptoms (ICD-10 - R39.9) Moxie Jean Other 02-21-2023 Hospital Discharge instructions Patient Education [...] and water are not available, use hand psychiatric arnp. ?Change your dressing as told by your [...] antibiotic even if your condition improves. Take enzq-xdy-owpzkrz and prescription medicines only as told by [...] 02/03/2009 Document Revised: 08/15/2019 Document Reviewed: 11/11/2016 C[employer] Patient Education 2020 Code42. Follow Up Care 07/01/2022 11:32:13 With:Santos Epperson Address: [facility]: c/o [address] [place] [address]- When:07/02/2022 14:41:37 [facility]02-21-2023 Evaluation + Plan noteExtracted from: Title:SOAP Note: [...] CLINIC Appointment Type: Follow Up Visit (FT) [facility]02-20-2023 Evaluation note* Encounter Date Diagnosis Assessment Notes [...] states he is seeing a specialist in [place] for this severe problem. Jun, Type 2 diabetes mellitus with diabetic neuropathy, unspecified (ICD-10 - E11.40) Discussed recent 3rd foot surgery with osteonecrosis. Followup w Dr. Romo for diabetes. Moxie Jean Other 02-13-2023 Evaluation + Plan noteExtracted from: [...] 15:46:00) Prescriptions ergocalciferol 50,000 intl units Cap, 56441 International_Unit= 1 cap(s), Oral, q7day ferrous sulfate [...] Contact Information SURAJ LLANOS 06/30/2022 02:[address] [address] Business (1) Additional Instructions: Santos Epperson In 5 days 06/25/2022 [facility]: c/o [address] [place] [address]- Additional Instructions: Osteomyelitis, Adult Extracted from: Title:ANES Post-operative Note - General Author: Irineo Gonzalez Jr., DO Date:06/20/22 Plan Transfer/Discharge: Transfer/Discharge Discharge when meets criteria ( From PACU to Ambulatory Surgery Unit, and To home ). Extracted from: Title:Pre-anesthesia - Adult Author:Irineo Gonzalez Jr., DO Date:06/20/22 Plan [place] [employer] Anesthesiologists (ASA) physical status classification: [...] artery disease (I25.10: Atherosclerotic heart disease of [place] coronary artery without angina pectoris) 11. Bipolar [...] from: Title:Admission H & P Author:Fareed GILBERT, [facility] Date:06/18/22 61 y/o M w/mhx most sig [...] Consult to Infectious Disease Physician Consult to Registered Phlebotomist Part Time Consult to Wound Care Diabetic/Calorie Control Diet [...] Scheduled Provider:Santos Epperson DPM Location[facility] Appointment Type: Follow Up Visit (FT) Diagnostic Tests Pending * Vancomycin Level Trough 06/25/22 [facility]02-13-2023 NoteCommunity Healther [facility] Medical CenterComment on above:Result Comment: Electronically Signed By: KIMBERLY GILBERT, Kennedy Herrera\.domenic\Date and Time Signed: 06/23/22 10:54 [id number] Hospital Discharge instructions Patient Education 06/23/2022 10:53:40 [...] Follow these instructions at home: Medicines Take olli-tbs-ixvrqzk and prescription medicines only as told by [...] and water are not available, use hand psychiatric arnp. Do not use any products that contain [...] 04/27/2006 Document Revised: 05/13/2018 Document Reviewed: 05/06/2018 Clicknation Patient Education 2020 Code42. Follow Up Care 06/18/2022 12:44:22 With:Ronaldo Arcos Address: [address] [place] [address]- Business (1) When:2 to 4 weeks Comments:Unable to contact office via phone or fax. Please call to schedule followup appointment. With:Santos Epperson Address: [facility]: c/o [address] [place] [address]- When:06/25/2022 10:15:00 With:SURAJ LLANOS Address: [address] [place] [phone]- Business (1) When:06/30/2022 14:00:00 [facility]02-11-2023 NotePT evaluation completed. Recommend daily PT while in acute care to practice transfers with rollator, bed mobility, and improve mobility. CGA for bed mobility and scooting, min assist for stand pivot from bed to chair NWB R LE this date. [facility]02-10-2023 NotePt admit 06/18/22 d/t osteomyelitis of 1st metatarsal. Pt undergoing podiatry procedure 06/20/22. Will check back 06/21/22 for eval pending weightbearing status clarification.[facility]02-10-2023 NoteAttempted PT Evaluation, but pt scheduled to have surgery this date. Will Hold and attempt tomorrow[facility]02-08-2023 [facility]Comment on above:Result Comment: Electronically Signed By: Fareed GILBERT, Laz\.br\Date and Time Signed: 06/18/22 16:47 [id number] Evaluation note* Encounter Date Diagnosis Assessment Notes Treatment Notes Treatment Clinical Notes May, Moderate episode of recurrent major depressive disorder (ICD-10 - F33.1) Moxie Jean Other 01-27-2023 Evaluation note* Encounter Date Diagnosis Assessment Notes Treatment Notes Treatment Clinical Notes May, Type 2 diabetes mellitus with hyperglycemia (ICD-10 - E11.65) May, intermediate designer (current) use of insulin (ICD-10 - Z79.4) May, Arthritis (ICD-10 - M19.90) Prescription will be initiated for scooter through [facility] May, CHF (congestive heart failure) (ICD-10 - I50.9) Patient presently under the care of [facility] cardiology. Reviewed medications. Stable but no improvement [...] with diabetic neuropathy, unspecified (ICD-10 - E11.40) Moxie Jean Other 12-09-2022 Evaluation + Plan noteExtracted from: Title:Discharge Note Author:DANA GILBERT, María Date: 04/18/22 Discharge To, Anticipated II - [...] Contact Information Ramiro Epperson 04/16/2022 12:00 AM [facility] [address] [place] [address]- 0 Business (1) [facility] c/o [facility] [address] [facility] [place] [address]- 0 Business (1) Additional Instructions: Ernst Almendarez Within 1 to 2 weeks [address] [place] [address]- Business (1) Additional Instructions: SURAJ LLANOS Within 3 to 5 days [facility] [place] [address]- Business (1) Additional Instructions: Argelia - Post [...] artery disease (I25.10: Atherosclerotic heart disease of [place] coronary artery without angina pectoris) - coreg, [...] day(s), # 20 tab(s), Refills(s) 0, Pharmacy: [facility], 180, cm, 04/14/22 11:50:00 EST, Height/Length Dosing, 135.5, kg, 04/14/22 11:50:00 EST, Weight Dosing doxycycline, 100 mg = 1 cap(s), Oral, BID, X 10 day(s), # 20 cap(s), Refills(s) 0, Pharmacy: [facility], 180, cm, 04/14/22 11:50:00 EST, Height/Length [...] Title:DOUGLAS PREOP Author:Jeffrey Butcher DO Date:06/17/21 Plan [place] [employer] Anesthesiologists (ASA) physical status classification: [...] artery disease (I25.10: Atherosclerotic heart disease of [place] coronary artery without angina pectoris) - coreg, [...] artery disease (I25.10: Atherosclerotic heart disease of [place] coronary artery without angina pectoris) 9. PAF [...] - coreg, losartan - echo - consult [facility] cardiology Ordered: 2. Cellulitis of both lower [...] artery disease (I25.10: Atherosclerotic heart disease of [place] coronary artery without angina pectoris) - coreg, [...] Consult to Infectious Disease Physician Consult to Registered Phlebotomist Part Time Consult to Wound Care Echo Transthoracic Complete [...] - coreg, losartan - echo - consult [facility] cardiology 2. Cellulitis of both lower extremities [...] artery disease (I25.10: Atherosclerotic heart disease of [place] coronary artery without angina pectoris) - coreg, [...] prophylaxis (Z78.9: Other specified health status) - SCDsTio tiptonis pt will require greater than 2 midnights [...] Consult to Infectious Disease Physician Consult to Registered Phlebotomist Part Time Echo Transthoracic Complete Education Heart Failure Evaluate [...] Troponin 9 Hr. XR Chest Single View [facility]12-07-2022 Hospital Discharge instructions Patient Education 04/16/2022 18:31:08 Argelia - Post Operative Instructions (Revised 01/05/14) (Custom) [place], [place] Ramiro Epperson, HAMZAH, FACFAS POST OPERATIVE INSTRUCTIONS Keep bandage clean [...] feel free to call the doctor at: [phone] or [phone] Epperson paged. Patient signatureDate Dr. Ramiro Epperson, HAMZAH, FACFASDate Revised: 06-18 Follow Up Care 04/14/2022 11:43:04 With:Ernst Almendarez Address: [address] [place] [phone] Business (1) When:1 to 2 weeks With:SURAJ LLANOS Address: [address] [place] [address]- Business (1) When:3 to 5 days With:Ramiro Epperson Address: [facility] [place] [address] [place] [address]- 2 Business (1) [facility]: c/o [address] [place] [address]- 0 Business (1) When:04/16/2022 [facility]10-03-2022 Evaluation note* Encounter Date Diagnosis Assessment Notes Treatment Notes Treatment Clinical Notes Feb, Major depressive disorder, recurrent episode, moderate (ICD-10 - F33.1) Moxie Jean Other 08-13-2022 [facility] Evaluation + Plan noteExtracted from: Title:Discharge [...] qualifying data available Extracted from: Title:Progress/SOAP Note Author:Oimd Kumari MD Date:12/02/21 1. Cellulitis (L03.90: Cellu litis, unspecified) 2. Diabetic foot ulcers (E11.621: Type 2 diabetes mellitus with foot ulcer) 3. Coronary artery disease (I25.10: Atherosclerotic heart disease of [place] coronary artery without angina pectoris) 4. Chronic [...] We are awaiting records from his primary fitting room maintenance mechanic. No plan for cardiac catheterization at this [...] artery disease (I25.10: Atherosclerotic heart disease of [place] coronary artery without angina pectoris) Continue patient [...] Panel CBC w/ Auto Diff Consult to Registered Phlebotomist Part Time Hepatic Function Panel Magnesium Level MRI Foot w/o Contrast Left MRI Foot w/o Contrast Right Plan discussed with patient at bedside This report was transcribed using voice recognition software. Every effort was made to ensure accuracy, however, inadvertently computerized upper leather cutter mistakes may be present. Dr. Kennedy Harris Hospitalist at [facility] Extracted from: Title:Consult Note Author:Jin Kumari MD te:12/01/21 1. Cellulitis (L03.90: Cellu litis, unspecified) 2. Diabetic foot ulcers (E11.621: Type 2 diabetes mellitus with foot ulcer) 3. Coronary artery disease (I25.10: Atherosclerotic heart disease of [place] coronary artery without angina pectoris) Patient is had several episodes of substernal chest pressure mostly at rest, with known history of ischemic cardiomyopathy. As best I can tell his EF was 39% in the past but all of his cardiac studies have been at [facility]. Recommend we obtain those records from his [...] podiatry note patient did state that his fitting room maintenance mechanic at [facility] has in the past discouraged him from [...] artery disease (I25.10: Atherosclerotic heart disease of [place] coronary artery without angina pectoris) Patient eats [...] and we will ask for records [facility] and from his fitting room maintenance mechanic Dr. Sylvester Ordered: Communication Order Physician to Nursing Consult to Cardiology 4. Chronic systolic heart failure (I50.22: Chronic systolic (congestive) heart failure) Patient has chronic orthopnea. Patient implies his fitting room maintenance mechanic from [facility] had recently intensified his diuretic therapy giving [...] event 8 years ago he had a [place] filter. He is on Eliquis which we [...] disease, unspecified) States he is followed by mortgage servicing specialist at [facility] states he has chronic kidney disease stage [...] Monitoring CBC w/ Auto Diff Consult to Registered Phlebotomist Part Time Diabetic/Calorie Control Diet Elevate Head of Bed [...] of fighting was agreeable to above plan. [facility]06-23-2022 [facility]The [facility]05-[facility]-2022 [facility]The [facility]04-21-2022 [facility]The [facility]03-27-2022 NoteThe [facility]03-[facility]22 Hospital Discharge instructions Patient Education 08/01/2021 09:02:00 [...] urethra. Follow these instructions at home: Take oodd-srb-nrlhzfx and prescription medicines only as told by [...] 04/27/2006 Document Revised: 03/22/2019 Document Reviewed: 06/01/2017 Clicknation Patient Education 2020 [employer] 08/01/2021 09:01:56 Calorie Counting for Weight [...] 04/27/2006 Document Revised: 01/14/2019 Document Reviewed: 03/27/2017 Elsevier Patient Education 2020 Code42. Follow Up Care 07/26/2021 13:15:45 With:WILDER GILBERT, Teddy Cross, URL Address: [address] [place] [address] [place] [phone] When:12/01/2021 [facility] [id number] Evaluation note* Encounter Date Diagnosis Assessment Notes Treatment Notes Treatment Clinical Notes Jun, Obstructive sleep apnea (ICD-10 - G47.33) Jun, BMI 45.0-49.9, adult (ICD-10 - Z68.42) Moxie Jean Other chigx complaint+Reason for visit Narrative* Chief Complaint Amb Documentation COVID + ROBYN/Insomnia Unknown Reason for Visit COVID-19 Insomnia CHF (congestive heart failure) Insomnia Obstructive sleep apnea hypopnea, severe Restless legs syndrome [facility] Work Phone: Evaluation + Plan note Future Appointments Appointment Date:11/04/2021 03:00:00 PM Scheduled Provider:Teddy HDZ MD Location:[facility] Appointment Type:URO Office Visit [facility] Evaluation + Plan note Future Appointments Appointment Date:05/01/2022 11:15:00 AM Scheduled Provider:Mark Zepeda MD Location:[facility] Appointment Type:WC Follow Up Visit (FT) Appointment Date:05/06/2022 02:45:00 PM Scheduled Provider:Ramiro Epperson DPM Location:[facility] Appointment Type:WC [facility] (FT[facility] Future Appointments Appointment Date:06/04/2022 11:30:00 AM Scheduled Provider:Santos Epperson DPM Location:[facility] Appointment Type:WC Follow Up Visit (FT) [facility] Future Appointments Appointment Date:06/18/2022 11:30:00 AM Scheduled Provider:Santos Epperson DPM Location:[facility] Appointment Type:WC Follow Up Visit (FT) [facility] Future Appointments Appointment Date:06/25/2022 10:15:00 AM Scheduled Provider:Santos Epperson DPM [facility] Type:WC Follow Up Visit (FT) [facility] note Future Appointments Appointment Date:08/06/2022 11:45:00 AM Scheduled Provider:Santos Epperson DPM [facility] Appointment Type:WC Follow Up Visit (FT) Appointment Date:08/07/2022 10:30:00 AM Scheduled Provider:Mark Zepeda MD [facility] Appointment Type:WC Follow Up Visit (FT) Appointment Date:09/02/2022 02:15:00 PM Scheduled Provider:Teddy HDZ MD Location:[facility] Appointment Type:URO [facility] note Future Appointments Appointment Date:08/13/2022 08:00:00 AM Scheduled Provider:Santos Epperson DPM [facility] Appointment Type:WC Follow Up Visit (FT) Appointment Date:08/14/2022 11:30:00 AM Scheduled Provider:Mark Zepeda MD [facility] Appointment Type:WC Follow Up Visit (FT) Appointment Date:09/02/2022 02:15:00 PM Scheduled Provider:Teddy HDZ MD Location:[facility] Appointment Type:URO [facility] note Future Appointments Appointment Date:08/14/2022 11:30:00 AM Scheduled Provider: Location:[facility] Appointment Type:Surgery FT Appointment Date:08/27/2022 11:15:00 AM Scheduled Provider:Santos Epeprson DPM [facility] Appointment Type:WC Follow Up Visit (FT) Appointment Date:09/02/2022 02:15:00 PM Scheduled Provider:Teddy HDZ MD Location:[facility] Appointment Type:URO [facility] Future Appointments Appointment Date:09/02/2022 02:15:00 PM Scheduled Provider:Teddy HDZ MD Location:[facility] Appointment Type:URO Office Visit Appointment Date:09/03/2022 09:00:00 AM Scheduled Provider:Santos Epperson DPM Location:[facility] Appointment Type:WC Follow Up Visit (FT) [facility] Future Appointments Appointment Date:09/03/2022 09:00:00 AM Scheduled Provider:Santos Epperson DPM Location:[facility] Appointment Type:WC Follow Up Visit (FT) [facility] Evaluation + Plan note Future Appointments Appointment Date:09/10/2022 10:45:00 AM Scheduled Provider:Santos Epperson DPM Location:[facility] Appointment Type:WC Follow Up Visit (FT) [facility] Future Appointments Appointment Date:10/22/2022 10:30:00 AM Scheduled Provider:Santos Epperson DPM Location:[facility] Appointment Type:WC [facility] Up Visit (FT) [facility] HospitalEvaluation + Plan note Future Appointments Appointment Date:02/17/2023 03:00:00 PM Scheduled Provider:Ramiro Epperson DPM [facility] Appointment Type: New Patient 30 (FT) Diagnostic Tests Pending * Wound [facility] Future Appointments Appointment Date:03/11/2023 10:00:00 AM Scheduled Provider:Santos Epperson DPM Location[facility] Appointment Type:WC Follow Up Visit ([facility] Future Appointments Appointment Date:04/08/2023 09:15:00 AM Scheduled Provider:Santos Epperson DPM Location:[facility] Appointment Type:WC Follow Up Visit ([facility] Future Appointments Appointment Date:04/22/2023 10:30:00 AM Scheduled Provider:aSntos Epperson DPM Location:[facility] Appointment Type:WC Follow Up Visit ([facility] Future Appointments Appointment Date:05/27/2023 11:30:00 AM Scheduled Provider:Santos Epperson DPM Location[facility] Appointment Type:WC [facility] Up [facility] ([facility] Future Appointments Appointment Date:06/24/2023 10:15:00 AM Scheduled Provider:Santos Epperson DPM Location[facility] Appointment Type: Follow Up Visit ([facility] noteNo InformationNortPrecyse Other evaluation noteNo assessment information available [facility] Work Phone: evaluation noteNoSOMA Analytics Other evaluation note* Diagnosis Onset Date Resolution Status Insomnia acute COVID-19 acute Insomnia acute CHF (congestive heart failure) chronic Insomnia acute Obstructive sleep apnea hypopnea, severe acute Restless legs syndrome acute [facility] Work Phone: evaluation note* Diagnosis Onset Date Resolution Status COVID-19 acute Insomnia acute CHF (congestive heart failure) chronic Insomnia acute Obstructive sleep apnea hypopnea, severe acute Restless legs syndrome acute [facility] Work Phone: evalueimny note* Diagnosis Onset Date Resolution Status Insomnia acute Obstructive sleep apnea hypopnea, severe acute Restless legs syndrome acute [facility] Work Phone: evaluation note* Diagnosis Onset Date Resolution Status Insomnia acute Obstructive sleep apnea hypopnea, severe acute Restless legs syndrome acute Gastroparesis acute [facility] Work Phone: evaluation note* Diagnosis Onset Date Resolution Status Gastroparesis acute CHF (congestive heart failure) chronic Diabetic foot ulcer chronic Insomnia acute Obstructive sleep apnea hypopnea, severe acute Restless legs syndrome acute [facility] Work Phone: evaluation note* Diagnosis Diabetic polyneuropathy associated with type 2 diabetes mellitus ([facility])- Primary Type 2 diabetes mellitus with foot ulcer (CODE) ([facility]) Non-pressure chronic ulcer of other part of left foot with fat layer exposed ([facility]) Pressure ulcer of left heel, stage 2 ([facility]) 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 ([facility]/HCC) Equinus contracture of right ankle Equinus contracture of left ankle History of amputation Other problems of limbs documented in this encounter [facility] HealthcareEvaluation note* Diagnosis Type 2 diabetes mellitus with foot ulcer (CODE) ([facility])- Primary 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) Diabetic polyneuropathy associated with type 2 diabetes mellitus ([facility]) Equinus contracture of right ankle Equinus contracture of left ankle History of amputation Other problems of limbs documented in this encounter [facility] HealthcareEvaluation note* Diagnosis Type 2 diabetes mellitus with foot ulcer (CODE) ([facility])- Primary Non-pressure chronic ulcer of other part of left foot with fat layer exposed ([facility]) Diabetic polyneuropathy associated with type 2 diabetes mellitus ([facility]) Equinus contracture of right ankle Equinus contracture of left ankle History of amputation Other problems of limbs Type 2 diabetes mellitus with hyperglycemia, without long-term current use of insulin ([facility]) documented in this encounter [facility] HealthcareEvaluation note* Diagnosis Onset Date Resolution Status Admit Date Diabetic neuropathy associated with type 2 diabetes mellitus acute July 05, 2024 1:21pm CHF (congestive heart failure) chronic July 05, 025 1:21pm Diabetic foot ulcer chronic 2024 1:21pm [facility] Work Phone: History general Narrative - Reported* Type Description Date Medical History HTN Medical History COPD Medical History Gastroparesis Medical History CHF Medical History Diastolic dysfunction Medical History arthritis Medical History torn miscus in bilat legs Medical History neuropathy in legs and feet Medical History abscesses/decubius ulcers that a re not healing Medical History SD x4 Medical History Major depression, recurrent Medical [...] Hospitalization History CHF Hospitalization History Fainting 2011 [facility] Other History general Narrative - Reported* Type Description Date Medical History abscesses/decubius ulcers that a re not healing Medical History SD x4 Medical History Back injury due to [...] Fainting 2011 Hospitalization History SEE SURGICAL HX [facility] Other Hisjhfq general Narrative - Reported* Type Description Date Medical History abscesses/decubius ulcers that a re not healing Medical History SD x4 Medical History Back injury due to [...] Fainting 2011 Hospitalization History SEE SURGICAL HX [facility] Other History general [facility] - [facility] Other Hospital course Narrative No data available for this section [facility] Discharge instructions No data available for this section [facility] HospitalInstructionsNot on filedocumented in this encounter [facility] filedocumented in this encounter [facility] System[facility] note No data available for this section [facility] Assessments No Assessments Information Available Summary Purpose [...] Documents on File Type Date Recorded Patient Sales Office Administrator Expl anation Durable Power of Attraction Worker Date Activated Date Inactivated Comments 10/13/2018 11:30 PM 10/18/2018 7:45 PM Advance Directive Response Recorded Date/ Time Advance Directives No June 1:18pm Advance Directive Response Recorded Date/ Time Advance Directives No June 2:18pm Chief Complaint and Reason for Visit Chief Complaint I50.41 Chief Complaint M54.50 M25.552 Chief Complaint M54.50 M25.552 Paper Cup Machine Operator Vanco Chief Complaint Chcf Vanco Chief Complaint Chcf Vanco 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, intermediate vanco 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, long-term vanc Chief Complaint Paper Cup Machine Operator Vanco 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, intermediate designer vanco 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, long-term vanc snf vanco Long-term vanco Chief Complaint Paper Cup Machine Operator Vanco 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, intermediate vanco 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, long-term vanc snf vanco Long-term vanco osteomylitis Foot infection, osteomyelitis Chief Complaint Chcf Vanco 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, intermediate designer vanco 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, long-term vanc snf vanco Long-term vanco osteomylitis Foot infection, osteomyelitis 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 control 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 Clogged Infusaport Chief Complaint Chcf Vanco 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, intermediate designer vanco 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, long-term vanc snf vanco Long-term vanco osteomylitis Foot infection, osteomyelitis Infection termite control servicer vanco Long-term vanco Clogged Infusaport Chief Complaint [...] hypopnea, severe Restless legs syndrome Chief Complaint Admit Date H16.003 Z79.899 March 02, 2024 2 :27pm ROBYN/Insomnia follow up March 02 3:06pm CC Adult Risk Stratification February 3:29pm medicine refill-HIGH RISK March 04, 2024 2:22pm Unknown May 27, 2024 1 0:00am Reason for Visit Admit Date Insomnia March 02, 2024 3 :06pm Obstructive sleep apnea hypopnea, severe March 02, 2024 3:06pm Restless legs syndrome March 02 3:06pm Diabetic neuropathy associat ed with type 2 diabetes mellitus March 04, 2024 2:22pm Gastroparesis March 04, 2024 2 :22pm CHF (congestive heart failure) February 092023 2:22pm Diabetic foot ulcer March 04, 2024 2 :22pm Chief Complaint Admit Date Unknown May 27, 2024 1 0:00am Amb Documentation June 06, 2024 9 :17am Amb Documentation June 14, 2024 9 :07am Amb Documentation June 22, 2024 9:42am TBH/UT follow up, Heart failure/Surgery July 05, 2024 1:21pm Reason for Visit Admit Date Diabetic neuropathy associat ed with type 2 diabetes mellitus July 05, 2024 1:21pm CHF (congestive heart failure) July 05, 2024 1:21pm Diabetic foot ulcer July 05, 2024 1:21pm Chief Complaint Admit Date Unknown May 27, 2024 1 0:00am Amb Documentation June 06, 2024 9 :17am Amb Documentation June 14, 2024 9 :07am Amb Documentation June 22, 2024 9:42am TBH/UT follow up, Heart failure/Surgery July 05, 2024 1:21pm Fall f/u-HIGH RISK July 13, 2024 10:2 2am Reason for Visit Admit Date Diabetic neuropathy associat ed with type 2 diabetes mellitus July 05, 2024 1:21pm CHF (congestive heart failure) July 05, 2024 1:21pm Diabetic foot ulcer July 05, 2024 1:21pm Diabetes mellitus with ulcer of lower ex tremity July 13, 2024 10:22am Organ-limited amyloidosis July 13 10:22am Osteoarthritis of right knee July 13, 2024 10:22am CHF (congestive heart failure) July 10:22am Reason for Referral Reason *FU 05/20 [facility] - has HH - told it is stage 4 undermining decubitus Diagnosis 1 Pressure injury of s acral region, 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) Referral Organization [facility] Referring Provider First Name Suraj Referring Provider Last Name Shalonda Referring Provider Specialty [facility] [employer] Referred Organization [facility] Referred Provider Bety Brody Referred Address [address] [place], [place],[address] Referred Provider Specialty Nurse Eduardo villafuerte Referral Priority Routine General Notes Lakeisha Dalal 04:54:35 PM >received today Lakeisha Dalal 05/12/2023 04:56:43 PM >attachments made, waiting for notes to be locked Lakeisha Dalal 05/13/2023 04:55:25 PM >notes locked, referral faxed Clinical Notes p: [phone] f: [id number] Reason *FU 07/14 depressi on. I do not have any notes from his present psychiatrist. Diagnosis 1 Moderate episode of recurrent major depressive disorder (F33.1) Referral Organization [facility] Referring Provider First Name Suraj Referring Provider Last Name Shalonda Referring Provider Specialty [facility] [employer] Referred Organization [facility] [place] Referred Address [address] [place], [place],[address] Referred Provider Specialty Psychiatry Referral Priority Routine General Notes Lakeisha Dalal 04:21:09 PM >received today, per TE pt said Dr. Hickman will see pt. notes locked, insurance card attached, referral faxed Lakeisha Dalal 06/16/2022 01:34:33 PM >received fax from office [...] mentioned I could sent to [facility] in [place] and [place]. referral faxed Lakeisha Dalal 07/07/2022 09:36:11 AM >faxed first attempt letter Lakeisha Dalal 07/08/2022 08:08:04 AM >received back from [place] office that pt will call back to schedule. will still follow up Clinical Notes will send to [facility] and [place] office [place] Fax: [phone] Reason 07/14/22 Insulin d ependent poorly controlled diabetes. Diagnosis 1 Type 2 diabetes maria elena itus with hyperglycemia (E11.65) Referral Organization [facility] Referring Provider First Name Suraj Referring Provider Last Name Shalonda Referring Provider Specialty [facility] Referred Organization [employer] Referred Provider Laz Romo Referred Address [address] [place] [address] [address],[place], [place],[address] Referred Provider Specialty Internal Med icine Referral [...] wounds opening back up when wearing shoes. [id number] Llanos 03/04/2024 SS12 Specialty Diagnoses / Procedures Referred By Contac t Referred To Contact Podiatry Diagnoses Type 2 diabetes mellitus with foot ulcer (CODE) ([facility]) Non-pressure chronic ulcer of other part of left foot with fat layer exposed ([facility]) Pressure ulcer of left heel, stage 2 ([facility]) 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 ([facility]) Diabetic shoes & inserts with fillers. Hx R TMA + L 1st & partial 2nd toe amputations Procedures IA OFFICE/OUTPATIENT [facility] 60 MINUTES Kole Diaz MD [address] [place] [address] [place] [address] Phone: tel: fax: [facility] [address] [place] [address] Phone: tel: fax: Referral ID Status Reason Start Date Expiration Date V isits Requested Visits Authorized [id number] Closed Specialty Services Required 01/04/2024 07/02/2024 1 1 Reason Onset Date Comments Medication Problem 03/14/2024 Reason Comments Shoe Measure Matt Saldaña is a 63 y.o. male who presents for Shoe Measure. Patient will be scanned for Right foot toe filler. [id number] Llanos 03/04/2024 SS12). Care Team (unrecognized sect ion and content) Team Status: Active Member Role Status Dates Suraj Llanos MD Primary Care Provider Active Team Status: Active Member Role Status Dates Suraj Llanos MD Primary Care Provide r, Attending Provider Active Start: May 24, 2024 Team Status: Active Member Role Status Dates Suraj Llanos MD Primary Care Provider Active Start: May 27, 2024 Jin Alvarado MD Attending Provider Active S tart: May 27, 2024 Team Status: Inactive Member Role Status Dates Suraj Llanos MD Primary Care Provider Active Start: May 27, 2024 End: May 27, 2024 Kole Diaz DPM MS Attending Provider Active Start: May 27, 2024 End: May 27, 2024 Team Status: Active Member Role Status Dates Suraj Llanos MD Primary Care Provider Active Start: June 01, 2024 Margareth Hdz DO Attending Provider Active Sta rt: June 01, 2024 Team Status: Active Member Role Status Dates Suraj lLanos MD Primary Care Provider Active Start: June 02, 2024 Shaikh Taryn MD Attending Provider Active Sta rt: June 02, 2024 Team Status: Active Member Role Status Dates Suraj Llanos MD Primary Care Provider Active Start: June 03, 2024 Shaikh Taryn MD Attending Provider Active Sta rt: June 03, 2024 Team Status: Active Member Role Status Dates Suraj Llanos MD Primary Care Provider Active Start: June 04, 2024 Shaikh Taryn MD Attending Provider Active Sta rt: June 04, 2024 Team Status: Active Member Role Status Dates Suraj Llanos MD Primary Care Provider Active Start: June 05, 2024 Shaikh Taryn MD Attending Provider Active Sta rt: June 05, 2024 Team Status: Active Member Role Status Dates Suraj Llanos MD Primary Care Provider Active Start: June 06, 2024 Elsa Benson CMA Attending Provider Active Start: June 06, 2024 Team Status: Active Member Role Status Dates Suraj Llanos MD Primary Care Provider Active Start: June 14, 2024 Elsa Benson CMA Attending Provider Active Start: June 14, 2024 Team Status: Active Member Role Status Dates Suraj Llanos MD Primary Care Provider Active Start: June 16, 2024 Margareth Hdz DO Attending Provider Active Sta rt: June 16, 2024 Team Status: Active Member Role Status Dates Suraj Llanos MD Primary Care Provider Active Start: June 22, 2024 Elsa Benson CMA Attending Provider Active Start: June 22, 2024 Team Status: Inactive Member Role Status Dates Suraj Llanos MD Primary Care Provide r, Attending Provider Active Start: July 05, 2024 End: July 05, 2024 Team Status: Inactive Member Role Status Dates Suraj Llanos MD Primary Care Provider Active Start: October 14, 2023 End: October 14, 2023 Jeb Hernandez MD Attending Provider Active Start: October 14, 2023 End: October 14, 2023 Team Status: Active Member Role Status Michelle Llanos MD Primary Care Provider Active Start: November 10, 2023 Teri Waters PA-C Attending Provider Active Start: November 10, 2023 Team Status: Active Member Role Status Michelle Llanos MD Primary Care Provider Active Start: November 11, 2023 Shaikh Taryn MD Attending Provider Active Sta rt: November 11, 2023 Team Status: Inactive Member Role Status Michelle Llanos MD Primary Care Provider Active Start: November 11, 2023 End: November 11, 2023 Kole Diaz DPM MS Attending Provider Active Start: November 11, 2023 End: November 11, 2023 Team Status: Active Member Role Status Michelle Llanos MD Primary Care Provider Active Start: November 12, 2023 Shaikh Taryn MD Attending Provider Active Sta rt: November 12, 2023 Team Status: Inactive Member Role Status Michelle Llanos MD Primary Care Provider Active Start: December 28, 2023 End: December 28, 2023 Rudy Harvey MD Attending Provider Active S tart: December 28, 2023 End: December 28, 2023 Team Status: Active Member Role Status Michelle Llanos MD Primary Care Provide r, Attending Provider Active Start: August 05, 2023 Team Status: Inactive Member Role Status Michelle Llanos MD Primary Care Provide r, Attending Provider Active Start: August 13, 2023 End: August 13, 2023 Team Status: Active Member Role Status Michelle Llanos MD Primary Care Provider Active Start: September 07, 2023 Nicolasa Walton LPN Attending Provider Active S tart: September 07, 2023 Team Status: Inactive Member Role Status Michelle Llanos MD Primary Care Provide r, Attending Provider Active Start: September 09, 2023 End: September 09, 2023 Team Status: Inactive Member Role Status Dates Suraj Llanos MD Primary Care Provider Active Janet Gomez Attending Provider Active Team Status: Inactive Member Role Status Michelle Llanos MD Primary Care Provider Active Ramiro D Dolce , DPM Attending Provider Active Team Status: Inactive Member Role Status Dates Suraj Llanos MD Primary Care Provider, Attending Sharon paul Active Team Status: Inactive Member Role Status Dates Suraj Llanos MD Primary Care Provider Active Santos Epperson , DPM Attending Provider Active Team Status: Inactive Member Role Status Dates Suraj Llanos MD Primary Care Provider Active Ronaldo Arcos MD Attending Provider Active Team Status: Inactive Member Role Status Dates Santos Epperson , DPM Attending Provider Active Team Status: Active Member Role Status Dates NON STAFF Primary Care Provider Active Team Status: Inactive Member Role Status Dates Ramiro Epperson , DPM Attending Provider Active Team Status: Inactive [...] Provider Active Start: January 19, 2024 Rudy Harvey MD Attending Provider Active S tart: January 19, 2024 Team Status: Active Member Role Status Michelle Llanos MD Primary Care Provider Active Start: March 02, 2024 Rudy Harvey MD Attending Provider Active S tart: March [...] 02, 2024 End: March 02, 2024 Rudy Harvey MD Attending Provider Active S tart: March 02, 2024 End: March 02, 2024 Team Status: Active Member Role Status Dates Suraj Llanos MD Primary Care Provide r, Attending Provider Active Start: March 03, 2024 Team Status: Inactive Member Role Status Dates Suraj Llanos MD Primary Care Provide r, Attending Provider Active Start: March 04, 2024 End: March 04, 2024 Chisel Mortiser Operator Relationship Specialty Start Date End Date Laz Romo MD [address] [place] [address] PCP - General Endocrinology 03/07/24 Chisel Mortiser Operator Relationship Specialty Start Date End Date Laz Romo MD [address] [place] [address] PCP - General Endocrinology 03/07/24 Chisel Mortiser Operator Relationship Specialty Start Date End Date Suraj Llanos MD [address] [place] [phone] PCP - General Family Medicine 03/17/24 Chisel Mortiser Operator Relationship Specialty Start Date End Date Suraj Llanos MD [address] [place] [phone] PCP - General Family Medicine 03/17/24 Chisel Mortiser Operator Relationship Specialty Start Date End Date Suraj Llanos MD [address] [place] [phone] PCP - General Family Medicine 03/17/24 Chisel Mortiser Operator Relationship Specialty Start Date End Date Suraj Llanos MD [address] [place] [phone] PCP - General Family Medicine 03/17/24 Chisel Mortiser Operator Relationship Specialty Start Date End Date Suraj Llanos MD [address] [place], [place] [phone] PCP - General 09/30/18 Chisel Mortiser Operator Relationship Specialty Start Date End Date Suraj Llanos MD [address] [place] [phone] PCP - General Family Medicine 03/17/24 Chisel Mortiser Operator Relationship Specialty Start Date End Date Suraj Llanos MD [address] [place] [id number] PCP - General 09/30/18 Team Status: Inactive Member Role Status Dates Suraj Llanos MD Primary Care Provide r, Attending Provider Active Start: July 13, 2024 End: July 13, 2024 (unrecognized sect ion and content) No Status Records FoundNo Status Records FoundNo Status Records FoundNo Status Records FoundNo Status Records FoundNo Status Records Found INFORMATION SOURCE (unrecogn ized section and content) DATE CREATED AUTHOR 01/14/2022 [facility] DATE CREATED AUTHOR AUTHOR'S ORGANIZ ATION 04/07/2022 [facility] DATE CREATED AUTHOR AUTHOR'S ORGANIZ ATION 06/11/2023 [facility] DATE CREATED AUTHOR AUTHOR'S ORGANIZ ATION 04/25/2024 [facility] EPIC DATE CREATED AUTHOR AUTHOR'S ORGANIZ ATION 06/06/2024 [facility] DATE CREATED AUTHOR AUTHOR'S ORGANIZ ATION 07/14/2024 [facility] Goals (unrecognized section and content) Goals [...] BE BASED ON THE PRIMARY CLINICAL RECORDS. [facility]. provides no warranty or guarantee of the accuracy or completeness of information in this document.
[2024-07-23 00:49] LABS: Basophils Absolute Auto 0.1 10^3/uL (0.0-0.1); Basophils Percent Auto 0.8 % (0.2-2.0); Eosinophils Absolute Auto 0.1 10^3/uL (0.0-0.7); Eosinophils Percent Auto 1.9 % (0.9-7.0); Hematocrit 30.5 % (42.0-54.0); Hemoglobin 9.2 g/dL (14.0-18.0); Immature Granulocytes Abs Auto 0.02 10^3/uL (0.00-0.03); Immature Granulocytes Pct Auto 0.3 % (0.0-0.5); Lymphocytes Absolute Auto 1.6 10^3/uL (1.2-3.8); Lymphocytes Percent Auto 27.2 % (20.5-60.0); Mean Corpuscular HGB Conc 30.2 g/dL (29.9-35.2); Mean Corpuscular Hemoglobin 27.1 pg (25.9-34.0); Mean Platelet Volume 10.7 fL (9.5-13.5); Monocytes Absolute Auto 0.3 10^3/uL (0.3-0.8); Monocytes Percent Auto 5.1 % (1.7-12.0); Neutrophils Absolute Auto 3.8 10^3/uL (1.4-6.5); Neutrophils Percent Auto 64.7 % (43.0-75.0); Platelet Count 284 10^3/uL (150-450); Red Blood Count 3.39 10^6/uL (4.70-6.10); Red Cell Distribution Width 16.5 % (11.0-15.0); White Blood Count 5.9 10^3/uL (4.0-11.0)
[2024-07-23] MEDS: OXYCODONE HCL/ACETAMINOPHEN 5MG/325MG 1 TAB PO (00:59)
[2024-07-23 01:01] LABS: Anion Gap 14.2; Calcium 8.4 mg/dL (8.5-10.1); Carbon Dioxide 24.7 mmol/L (21.0-32.0); Chloride 105 mmol/L (98-107); Estimated GFR (African America >60 (>=60 mL/min/1.73m^2); Estimated GFR (Non-African Ame >60 (>=60 mL/min/1.73m^2); Glucose 198 mg/dL (74-106); Potassium 3.9 mmol/L (3.5-5.1); Sodium 140 mmol/L (136-145); Troponin I High Sensitivity 10.5 pg/mL (4.0-76.1)
[2024-07-23 01:03] LABS: Influenza Virus A Antigen Negative; Influenza Virus B Antigen Negative; Internal Control Within Normal Limits; SARS-CoV-2 Ag NEGATIVE (NEGATIVE)
[2024-07-23 01:36] VITALS: BP 158/76; PULSE 79; O2SAT 99
== END 2024-07-23 01:38 | disposition home or self-care (01) ==
PROVIDERS: Emergency Provider Emergency Medicine; PCP Family Medicine
DX: R06.00 Dyspnea, unspecified (principal); R06.02 Shortness of breath; Z98.84 Bariatric surgery status; Z90.49 Acquired absence of other specified parts of digestive tract; Z87.891 Personal history of nicotine dependence; R63.5 Abnormal weight gain
CPT/HCPCS: 36415; 71045; 80048; 83880; 84484; 85025; 87804; 87811; 93005; 99285

== ENCOUNTER 2024-08-18 14:19 | Outpatient (OUT) | payer MEDICARE, MEDICAID, SELFPAY | END 2024-08-18 14:20 | disposition home or self-care (01) | LOC: WC 14:19 | PROVIDERS: PCP Family Medicine; Visit Provider Physician Assistant | DX: E11.621 Type 2 diabetes mellitus with foot ulcer (principal); L97.412 Non-pressure chronic ulcer of right heel and midfoot with fat layer exposed | CPT/HCPCS: 11043 ==

== ENCOUNTER 2024-09-23 13:25 | Outpatient (OUT) | payer MEDICARE, MEDICAID, SELFPAY ==
[2024-09-23 14:19] LABS: Basophils Absolute Auto 0.1 10^3/uL (0.0-0.1); Basophils Percent Auto 0.7 % (0.2-2.0); Eosinophils Absolute Auto 0.1 10^3/uL (0.0-0.7); Eosinophils Percent Auto 1.6 % (0.9-7.0); Hematocrit 34.6 % (42.0-54.0); Hemoglobin 10.6 g/dL (14.0-18.0); Immature Granulocytes Abs Auto 0.02 10^3/uL (0.00-0.03); Immature Granulocytes Pct Auto 0.3 % (0.0-0.5); Lymphocytes Absolute Auto 1.7 10^3/uL (1.2-3.8); Lymphocytes Percent Auto 23.4 % (20.5-60.0); Mean Corpuscular HGB Conc 30.6 g/dL (29.9-35.2); Mean Corpuscular Hemoglobin 25.6 pg (25.9-34.0); Mean Corpuscular Volume 83.6 fL (80.0-94.0); Mean Platelet Volume 10.5 fL (9.5-13.5); Monocytes Absolute Auto 0.3 10^3/uL (0.3-0.8); Monocytes Percent Auto 4.2 % (1.7-12.0); Neutrophils Absolute Auto 5.1 10^3/uL (1.4-6.5); Neutrophils Percent Auto 69.8 % (43.0-75.0); Platelet Count 332 10^3/uL (150-450); Red Blood Count 4.14 10^6/uL (4.70-6.10); Red Cell Distribution Width 16.1 % (11.0-15.0); White Blood Count 7.3 10^3/uL (4.0-11.0)
[2024-09-23 14:50] LABS: Alanine Aminotransferase 15 U/L (16-63); Albumin Globulin Ratio 0.7; Alkaline Phosphatase 79 U/L (46-116); Anion Gap 10.8; Aspartate Amino Transferase 19 U/L (15-37); BUN Creatinine Ratio 22.2; Bilirubin Total 0.6 mg/dL (0.2-1.0); Calcium 9.2 mg/dL (8.5-10.1); Carbon Dioxide 27.3 mmol/L (21.0-32.0); Chloride 105 mmol/L (98-107); Estimated GFR (African America >60 (>=60 mL/min/1.73m^2); Estimated GFR (Non-African Ame >60 (>=60 mL/min/1.73m^2); Globulin 4.4 g/dL; Glucose 88 mg/dL (74-106); Potassium 4.1 mmol/L (3.5-5.1); Sodium 139 mmol/L (136-145); Total Protein 7.4 g/dL (6.4-8.2)
== END 2024-09-23 13:26 | disposition home or self-care (01) ==
LOC: LAB 13:29
PROVIDERS: PCP Family Medicine; Visit Provider Internal Medicine Interventional Cardiology
DX: I50.41 Acute combined systolic (congestive) and diastolic (congestive) heart failure (principal)
CPT/HCPCS: 36415; 80053; 83880; 85025

== ENCOUNTER 2024-10-06 14:21 | Outpatient (OUT) | payer MEDICARE, MEDICAID, SELFPAY ==
--- OUTSIDE RECORDS SUMMARY | 2013-09-29 05:45 | XMS_ITS | Continuity of Care Document ---
Author Organization [facility] Address [address] [facility] [place] [address] Phone Care Team Providers Care Head Of Training And Development Name Role Phone Teddy FRIEDMAN August Unavailable Unavailable Allergies, Adverse Reactions, Alerts Substance Reaction Status Criticality ibuprofen Active No Information aspirin Active No Information caffeine Active No Information PROMETHAZINE HCL Active No Informat ion sulfanilamide Active No Information Medications Medication Instructions Dosage Effective Dates (start - stop) Status Comments Depakote ER 500 mg tablet,extended release take 1 tablet (500MG) by oral route every day 500 MG - Active potassium chloride ER 10 mEq capsule,extended release take 2 capsule (20MEQ) by oral route every day with food 20 MEQ - Active spironolactone 25 mg tablet take 2 tablet (50MG) by oral route every day 50 MG - Active Nexium 40 mg capsule,delayed release take 1 capsule (40MG) by oral route every day 40 MG - Active Neurontin 600 mg tablet take 1 tablet (600MG) by oral route 3 times every day 600 MG - Active Cozaar 100 mg tablet take 1 tablet (100M G) by oral route every day 100 MG - Active ferrous sulfate 325 mg (65 mg iron) tablet - Active carvedilol 6.25 mg tablet take 1 tablet (6.25MG) by oral route 2 times every day with food 6.25 MG - Active Spiriva with HandiHaler 18 mcg & inhalation capsules inhale 1 capsule (18MCG) by inhalation route every day using 2 inhalations via handihaler - Active Lasix 40 mg tablet take 1 tablet (40MG) by oral route every day 40 MG - Active Zofran 4 mg tablet take 2 tablet (8MG) by oral route every 8 hours for 2 days - Active aspirin, buffered 81 mg tablet - Active ammonium lactate 12 % Topical Cream - Active Advair Diskus 250 mcg-50 mcg/dose for Inhalation inhale 1 puff by inhalation route 2 times every day in the morning and evening approximately 12 hours apart 1.00 puff - Active metformin 1,000 mg tablet take 1 tablet (1000MG) by oral route 2 times every day with morning and evening meals 1000 MG - Active topiramate 100 mg tablet take 2 tablet (200MG) by oral route 2 times every day 200 MG - Active diazepam 10 mg tablet take 1 tablet (10M G) by oral route 3 times every day 10 MG - Active Flexeril 10 mg tablet take 1 tablet (10M G) by oral route 3 times every day - Active Plavix 75 mg tablet take 1 tablet (75MG) by oral route every day 75 MG - Active Lunesta 3 mg tablet take 1 tablet (3MG) by oral route every day at bedtime 3 MG - Active Pristiq 50 mg tablet,extended release take 1 tablet (50MG) by oral route every day 50 MG - Active Procedures Procedure Date Comp Oral Eval New/estab Patient 2013 Intraoral-complete Series (bw) 14 Advance Directives Directive Yes / No Effective Date File Name Resuscitation Not Answered N/A N/A Life Support Not Answered N/A N/A Intubation Not Answered N/A N/A Antibiotics Not Answered N/A N/A IV Fluid Support Not Answered N/A N/A Tube Feed Not Answered N/A N/A Other Directive N/A N/A WARNING:The information contained in this section is historical and is provided for information only and does not constitute a legal document or any assurance that the information is still accurate. Please verify the information with the rivers of the legal document before using it for clinical purposes. Encounters Encounter Description Practice Location Reason(s) For Visit Diagnoses Date Provider Providers Copied on Encounter [facility], [address], [place], [id number], [place] tel:[phone] Dental Clinic Dental examination Teddy DMD August. [address], [place], [id number], [place]. tel:[phone] Family History Family Member Type Diagnosis Age At Onset No Information Payers Payer name Insurance type Covered green party ID Inder mcintosh(s) Shira Medicaid Primary [facility] [id number] Social History Type Description Quantity Date Captured Comments Alcohol Use Details Unknown Caffeine Use Details Unknown Tobacco Use Status Smoking Status No Information Sex Male Vital Signs Date / Time: Height Weight BMI Pulse Rate Blood Pressure Temperature Respiratory Rate Body Surface Area Head Circumference Head Circ. Percentile Wt./Jose Angel. Percentile BMI percentile Pulse Ox Inhaled Ox 9:57 AM 73 /min 166/86 mm[Hg] Chief Complaint And Reason For Visit No Information Reason For Referral Reason For Referral No Information History Of Present Illness Encounter Date Complaint History Of Prese nt Illness No Information Functional Status Date Functional Assessmen t No Information Instructions Date Instruction Additional Infor mation No Information Assessments Type Assessment Date No Information Patient Care Teams Name Effective Dates (start - stop) Status Members No Information
--- OUTSIDE RECORDS SUMMARY | 2014-02-08 10:00 | XMS_ITS | Encounter Summary ---
Author Organization [facility] Address [address] [place] [address] Care Team Providers Care Replacer Name Role Phone Unavailable Primary Care Provider Unavailabl e Encounter Details Date Type Department Care Team (Late st Contact Info) Description 02/08/2014 10:00 AM EDT Hospital Encounter [facility] Social History Tobacco Use Types Packs/Day Years Used Date Smoking Tobacco: Never Assessed Sex and Gender Information Value Date Recorded Sex Assigned at Not on file Legal Sex Male 3:36 PM EDT Gender Identity Not on file Sexual Orientation Not on file documented as of this encounter Plan of Treatment Not on file documented as of this encounter Visit Diagnoses Not on filedocumented in this encounter
--- OUTSIDE RECORDS SUMMARY | 2023-07-01 10:15 | XMS_ITS ---
Author Organization [facility] Address [address] [place] [address] Care Team Providers Care Business Banker Name Role Phone David Estrada Unavailable [phone] REASON FOR VISIT Transition of care Encounters Encounter Location Date Provider Diagnosis [facility] [address] [place] [address] 07/01/2023 David Estrada Plan Of Treatment No Information Progress Notes * MATT HOWARDDOB:0 1960 (64 yo M)Acc No.[id number]:07/01/2023 Behavioral Health Patient: Radha WASSERMANMATT GARZA Provider: LEELEE Valencia :1960 A ge:62 Y S ex:Male Date:07/01/2023 Address[address] [place], [id number] Subjective: * Chief Complaints: * 1 . Transition of care. * Medical History: Objective: * Vitals: Assessment: Plan: * Treatment: * Images: * Electronic signature of LEELEE Hernández on 10/06/2024 at 02:24 PM EDT Sign off status: Pending * Provider: LEELEE Valencia Date: 0 07/01/2023 Generated for Printi ng/Faxing/eTransmitting on: 0 10/06/2024 02:24 PM EDT
--- OUTSIDE RECORDS SUMMARY | 2024-05-27 08:00 | XMS_ITS ---
Author Organization [facility] Address [address] [place] [address] Care Team Providers Care Cross Tie Maker Name Role Phone Elin Liz Primary Care Provider Bob Rodriguez [phone] REASON FOR VISIT Revision Right TMA Encounters Encounter Location Date Provider Diagnosis [facility] OUT[facility] [address] [place] [phone] 05/27/2024 Bob Emery Plan Of Treatment No Information Progress Notes * Bi WATERMANDOB:0 1960 (64 yo M)Acc No.[id number]:05/27/2024 UNLOCKED PROGRESS NOTE Patient: Radha WASSERMANBi GARZA Provider: Sharon Emery DPM, MS :1960 A ge:63 Y S ex:Male Date:05/27/2024 Address:[address], [phone] Pcp:Elin Liz Check Out:10:33 AM EST * * Electronic signature of Francisco Javier Emery DPM on 10/06/2024 at 02:23 PM EDT Sign off status: Pending Visit Status: C HK (Check Out) * Provider: Sharon Emery DPM, MS Date: 0 05/27/2024 Generated for Printi ng/Faxing/eTransmitting on: 0 10/06/2024 02:23 PM EDT
--- OUTSIDE RECORDS SUMMARY | 2024-07-01 07:52 | XMS_ITS ---
Author Organization The [facility] in [place] Address [address] [place] [address] Care Team Providers Care Warehouse Shift Supervisor Name Role Phone Elin Liz Primary Care Provider Bob Rodriguez [phone] Medications Medication SIG (Take, Route, Frequency, Duration) [...] a day for 30 days Wound measurements [id number] 07/01/2024 Active Doxycycline Hyclate 100 MG 1 tablet Orally twice daily for 28 days 07/01/2024 Active Encounters Encounter Location Date Provider Diagnosis [facility] (PODIATRY) [address] [place] [address] [place] [address] 07/01/2024 Bob Emery Plan Of Treatment Medication [...] day for 30 days 07/01/2024 Wound measurements [id number] Doxycycline Hyclate 100 MG 1 tablet Orally twice daily for 28 days 07/01/2024 Progress Notes * 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
--- OUTSIDE RECORDS SUMMARY | 2024-07-12 11:24 | XMS_ITS ---
Author Organization [facility] in [place] Address [address] [place] [address] Care Team Providers Care Room Manager Name Role Phone Elin Liz Primary Care Provider Bob Rodriguez [phone] REASON FOR VISIT wound care medications Medications Medication SIG (Take, Route, Frequency, Duration) Notes Start Date End Date Status Collagenase 250 UNIT/GM 1 application Externally Once a day for 30 days Wound measurements 9.3cmx3.7cmx2.1cm Per dosing calculator, patient requires 176grams for 30 days 07/01/2024 Active Encounters Encounter Location Date Provider Diagnosis [facility] (PODIATRY) [address] [place] [address] [place] [address] 07/12/2024 Bob Emery Plan Of Treatment Medication Medication Name Sig Start Date Stop Date Notes Collagenase 250 UNIT/GM 1 application Externally Once a day for 30 days 07/01/2024 Wound measurements 9.3cmx3.7cmx2.1cm Per dosing calculator, patient requires 176grams for 30 days Progress Notes * 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 1960 (63 yo M)Acc No.[id number]:07/12/2024 Patient: Bi RODRIGES :1960 A ge:63 Y S ex:Male [address] [place], [address] * Refills Refill Collagenase Ointment, 250 UNIT/GM, Externally, 180 grams, 1 application, Once a day, 30 days, Refills=1 * true * Date: Generated for Rashmi lewis/Mary/Debraitting on: 0 10/06/2024 02:23 PM EDT
--- OUTSIDE RECORDS SUMMARY | 2024-10-06 14:23 | XMS_ITS | Encounter Summary ---
Author Organization [facility] Address [address] [facility] [place] [address] Care Team Providers Care Sort Line Worker Name Role Phone Elin Liz MD Primary Care Provider [phone] Laz Romo MD Primary Care Provider [phone] Elin Liz MD Primary Care Provider [phone] Elin Liz MD Primary Care Provider [phone] Encounter Details Date Type Department Care Team (Late st Contact Info) Description 01/08/2023 Abstract [facility] [address] [place] [address] Santos Tan, DPM FACFAS [address] [facility] [place] [address] Social History Tobacco Use Types Packs/Day Years Used Date Smoking Tobacco: Every Day Cigarettes 1 18 Tobacco Cessation:Ready to Q uit: Not Asked; Counseling Given: Not Answered Alcohol Use Standard Drinks/Week Comments Never 0 (1 standard drink = 0.6 oz pur e alcohol) Sex and Gender Information Value Date Recorded Sex Assigned at Not on file Legal Sex Male 7:59 PM EDT Gender Identity Not on file Sexual Orientation Perez 01/06/2023 2: 37 PM EDT documented as of this encounter Plan of Treatment Upcoming Encounters Date Type Department Care Team (Late Contact Info) Description 10/11/2024 1:00 PM EDT Office Visit [facility] [address] [place] [address] Reynaldo Thompson, DO [address] [place] [address] 12/28/2024 1:30 PM EDT Office Visit [facility] [address] [place] [address] Laz Romo MD [address] [place] [address] documented as of this encounter Visit Diagnoses Not on filedocumented in this encounter Care Teams Sort Line Worker Relationship Specialty Start Date End Date Elin Liz MD PCP - General Family Medicine 01/06/23 03/06/24 Laz Romo MD [address] [place] [address] PCP - General Endocrinology 03/07/24 03/16/24 Elin Liz MD PCP - General Family Medicine 03/17/24 09/26/24 Elin Liz MD [address] [place] [phone] PCP - General Family Medicine 09/27/24 documented as of this encounter
--- OUTSIDE RECORDS SUMMARY | 2024-10-06 14:23 | XMS_ITS | Clinical Summary ---
Author Organization [facility] Address [id number] [address] [place] [address] Care Team Providers Care Margin Trimmer Name Role Phone Elin Liz MD Primary Care Provider [phone] Allergies Active Allergy Reactions Criticality Noted Date Comments Food Allergy Formula Wheezing 03/17/2016 Go-lightly drink Promethazine Wheezing 03/17/2016 Metoclopramide Hcl 11/19/2017 Sulfa (Sulfonamide Antibiotics) Wheezing 11/2015 Medications zolpidem (AMBIEN) 10 mg tablet Take 10 mg by mouth once daily at bedtime. 6 Active ammonium lactate (LAC-HYDRIN) 12 % lotion Apply topically. Act william tiotropium (SPIRIVA WITH HANDIHALER) 18 mcg per inhalation capsule Place 18 mcg into inhaler and inhale. Active fluticasone (FLONASE) 50 mcg/actuation nasal spray Administer 1 spray into each nostril as needed. 6 Active carvedilol (COREG) 25 mg tablet 2 (two) times a day. 6 Active NEXIUM 40 mg capsule Take by mouth 2 (two) times a day. 6 Active spironolactone (ALDACTONE) 25 mg tablet Take 25 mg by mouth daily. Active divalproex (DEPAKOTE) 500 mg EC tablet Take 1,000 mg by mouth once daily at bedtime. Active losartan (COZAAR) 100 mg tablet Take 100 mg by mouth. Active atorvastatin (LIPITOR) 80 mg tablet Take 80 mg by mouth once daily at bedtime. 6 Active diazePAM (VALIUM) 2 mg tablet Take 10 mg by mouth once daily at bedtime. Active metOLazone (ZAROXOLYN) 5 mg tablet Take 5 mg by mouth daily. 6 Active oxyCODONE (ROXICODONE) 30 mg immediate release tablet 30 mg every 4 (four) hours as needed. 6 Active metFORMIN (GLUCOPHAGE) 1000 mg tablet Take by mouth 2 (two) times a day. 6 Active isosorbide mononitrate (IMDUR) 30 mg 24 hr tablet Take by mouth daily. 6 Active baclofen (LIORESAL) 10 mg tablet Take 10 mg by mouth 3 (three) times a day. 5 8 Active doxycycline (VIBRA-TABS) 100 mg tablet Take 100 mg by mouth 2 (two) times a day. 0 8 Active finasteride (PROSCAR) 5 mg tablet Take 5 mg by mouth daily. Active magnesium oxide (MAG-OX) 400 mg tablet Take 2 tablets by mouth 2 (two) times a day. 0 8 Active mirtazapine (REMERON) 15 mg tablet Take 45 mg by mouth nightly. 2 8 Active primidone (MYSOLINE) 50 mg tablet Take 50 mg by mouth nightly. Active terazosin (HYTRIN) 5 mg capsule Take 5 mg by mouth daily. 0 8 Active ciclopirox olamine (CICLOPIROX TOP) Apply 1 % topically daily. Active OXcarbazepine (TRILEPTAL) 150 mg tablet Take 150 mg by mouth 2 (two) times a day. Active potassium chloride (KAYCIEL) 20 mEq/15 mL solution Take by mouth daily. Active pyridostigmine (MESTINON) 30 mg tablet Take 60 mg by mouth. Active OXYCONTIN 40 mg 12 hr tablet TAKE 1 TABLET EVERY 12 HOURS FOR 30 DAYS 0 9 Active cholecalciferol , vitamin D3, 50,000 units tabletIndicatio ns:Intestinal malabsorption, unspecified type,Malnutriti on, unspecified type,Vitamin D deficiency Take 1 tablet (50,000 Units total) by mouth 2 (two) times a week. 24 tablet 9 Active Additional Information Patient taking differently:50,000 Units oral 2 times weekly,Mondays and THURSDAY, Informant: Self, Reported on 01/11/2019 ursodiol (ACTIGALL) 250 mg tabletIndicatio ns:Rapid weight loss Take 1 tablet (250 mg total) by mouth 2 (two) times a day. 60 tablet 5 9 Active vit 10-iron fum-folic 65-1 mg tabletIndicatio ns:Intestinal malabsorption, unspecified type,Malnutriti on, unspecified type Take 1 tablet by mouth daily. 90 tablet 3 9 Active bumetanide (BUMEX) 2 mg tablet bumetanide 2 mg tablet 1 tab (2mg) AM and prn flexible 1 tab (1mg) PM Active semaglutide (OZEMPIC) 0.25 mg or 0.5 mg(2 mg/1.5 mL) pen injector Ozempic 0.25 mg or 0.5 mg (2 mg/1.5 mL) subcutaneous pen injector Active traZODone (DESYREL) 50 mg tablet trazodone 50 mg tablet Take 1 tablet twice a day by oral route for 30 days. Active vortioxetine (TRINTELLIX) 10 mg tablet daily. Active gabapentin (NEURONTIN) 800 mg tablet Take 800 mg by mouth 3 (three) times a day. Active ondansetron (ZOFRAN) 4 mg tablet Take 4 mg by mouth every 8 (eight) hours as needed. Active nitroglycerin (NITROSTAT) 0.[address] 0.4 mg under the tongue every 5 (five) minutes as needed. Active Active Problems Problem Noted Date Diagnosed Date Open wound of abdominal wall 12/30/2018 Morbid obesity with BMI of 45.0-49.9, adult 09/2018 History of DVT (deep vein thrombosis) 10/05/2018 History of pulmonary embolism 10/05/2018 S/P IVC filter 10/05/2018 Diastasis recti 09/30/2018 BMI 50.0-59.9, adult 06/16/2018 Chronic osteomyelitis of coccyx 12/05/2016 Sacral ulcer 03/17/2016 CHF (congestive heart failure) 04/10/2014 Fatty liver 04/10/2014 Gastroparesis 04/10/2014 GERD (gastroesophageal reflux disease) 4 OA (osteoarthritis) 04/10/2014 ROBYN (obstructive sleep apnea) 04/10/2014 Spinal stenosis 04/10/2014 Renal mass 04/10/2014 Overview (09/30/2018): BENIGN Morbid obesity 10/19/2013 Coronary atherosclerosis 11/10/2011 Generalized osteoarthritis 10/15/2011 Hyperlipidemia 08/08/2011 Essential hypertension 08/08/2011 Old myocardial infarction 08/08/2011 Immunizations Immunization Administration Dates Next Due Influenza, Injectable, Quadrivalent 02/19/2017 Influenza, Injectable, quadrivalent (PF) 016 Influenza, Unspecified 02/08/2018 Pneumococcal Conjugate 13-Valent 03/11/2016 Family History Medical History Relation Name Comments Cancer Brother Cancer Father Stroke Father in his 70s Cancer Mother Stomach cancer Mother Stroke Mother at age 43 Anesthesia problems Neg Hx Blood Clots Neg Hx Relation Name Status Comments Brother Father (Age 72) Mother (Age 43) Social History Tobacco Use Types Packs/Day Years Used Date Smoking Tobacco: Former Cigarettes Q uit: 06/17/2000 Smokeless Tobacco: Never Tobacco Cessation:Counseling Given: Yes Alcohol Use Standard Drinks/Week Comments No 0 (1 standard drink = 0.6 oz pur e alcohol) Childcare Answer Date Recorded Childcare Unknown 10/13/2018 Employment Answer Date Recorded Employment Unknown 10/13/2018 Purpose - Life Answer Date Recorded Purpose and direction in life Unknown Sex and Gender Information Value Date Recorded Sex Assigned at Not on file Legal Sex Male 12:30 PM EDT Gender Identity Not on file Sexual Orientation Not on file Last Filed Vital Signs Vital Sign Reading Time Taken Comments Blood Pressure 116/64 01/17/2019 2:49 PM EDT Pulse 94 01/17/2019 2:49 PM EDT Temperature 36.5 C (97.7 F) 01/17/2019 2:49 PM EDT Respiratory Rate 18 01/17/2019 2:49 PM EDT Oxygen Saturation 95% 01/10/2019 4:18 PM EDT Inhaled Oxygen Concentration - - Weight 136.5 kg (301 lb) 01/11/2019 12:35 PM EDT Height 180.3 cm (5' 10.98 ) 01/11/2019 12:35 PM EDT Body Mass Index 42 01/11/2019 12:35 PM EDT Plan of Treatment Health Maintenance Due Date Last Done Comments Depression Screening 1973 Tobacco Screening 1973 Adult BMI Screening 08/13/1979 DTaP,Tdap and Td Vaccines (1 - Tdap) 1980 Zoster (Shingles) Vaccine (1 of 2) 08/13/2011 Influenza Vaccine 01/09/2025 02/08/2018, , 03/11/2016 Goals Goal Patient Goal Type Associated Problems Recent Progress Patient-Stated? Author Home General Yes Chante Espitia, RN Note: Evaluation of progress towards goal: Patients goal is to discharge to home with Jin. 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
--- OUTSIDE RECORDS SUMMARY | 2024-10-06 14:23 | XMS_ITS | Patient Health Record ---
Author Organization [facility] [place] Address [address] [place] [address] Care Team Providers Care Embossing Press Operator Name Role Phone Elin Liz Primary Care Provider Aliza akshat EmeryKole Unavailable [phone] Results Component Value Reference Range Notes Fungus Stain (Not yet review ed by provider) Interpretation: Performing Lab: Notes/Report: [facility] , Fungus Stain See Below For Report Fungus Stain Fungus Stain BRI/Calcofluor preparation: no fungus observed. Fungus Stain Performing Lab: see note LC - [facility] LB Fungus (Mycology) Culture (N ot yet reviewed by provider) Interpretation: Performing Lab: Notes/Report: [facility] , Fungus (Mycology) Culture See Below For Report Fungus (Mycology) Culture Fungus (Mycology) Culture Culture Report: Fungus (Mycology) Culture Fungus (Mycology) Culture The specimen s ubmitted for fungus culture has been received and Fungus (Mycology) Culture Fungus (Mycology) Culture culture has be en initiated. Fungus (Mycology) Culture Fungus (Mycology) Culture No yeast or mo ld isolated after 4 weeks. Fungus (Mycology) Culture Fungus (Mycology) Culture Performed at: [facility] Fungus (Mycology) Culture Fungus (Mycology) Culture [address], [place], [place] [id number] Fungus (Mycology) Culture Fungus (Mycology) Culture Content Specialist: Paco Roa PhD, Phone: [phone] Fungus (Mycology) Culture Performing Lab: see note LC - [facility] LB SEE REPORT - Nursery Manager Id information not found for OBX-specific restaurant manager legend CBC AUTO DIFF (Not yet revie wed by provider) Interpretation: Performing Lab: Notes/Report: [facility] , White Blood Count 6.4 4.0-11.0 10 3/uL Red Blood Count 3.86 4.70-6.10 10 6/uL Hemoglobin 11.4 14.0-18.0 g/dL Hematocrit 35.5 42.0-54.0 % Mean Corpuscular Volume 92.0 80.0-94.0 fL Mean Corpuscular Hemoglobin 29.5 25.9-34.0 pg Mean Corpuscular HGB Conc 32.1 29.9-35.2 g/dL Red Cell Distribution Width 15.5 11.0-15.0 % Platelet Count 287 150-450 10 3/uL Mean Platelet Volume 10.4 9.5-13.5 fL Neutrophils Percent Auto 61.6 43.0-75.0 % Lymphocytes Percent Auto 24.2 20.5-60.0 % Monocytes Percent Auto 11.1 1.7-12.0 % Eosinophils Percent Auto 2.0 0.9-7.0 % Basophils Percent Auto 0.8 0.2-2.0 % Immature Granulocytes Pct Auto 0.3 0.0-0.5 % Neutrophils Absolute Auto 3.9 1.4-6.5 10 3/uL Lymphocytes Absolute Auto 1.5 1.2-3.8 10 3/uL Monocytes Absolute Auto 0.7 0.3-0.8 10 3/uL Eosinophils Absolute Auto 0.1 0.0-0.7 10 3/uL Basophils Absolute Auto 0.1 0.0-0.1 10 3/uL Immature Granulocytes Abs Auto 0.02 0.00-0.03 10 3/uL Performing Lab: see note ML - [facility] LB PROF CHEM 8 (BAS METB) (Not yet reviewed by provider) Interpretation: Performing Lab: Notes/Report: [facility] , Sodium 138 136-145 mmol/L Potassium 4.2 3.5-5.1 mmol/L Chloride 102 98-107 mmol/L Carbon Dioxide 31.2 21.0-32.0 mmol/L Anion Gap 9.0 Glucose 130 74-106 mg/dL Blood Urea Nitrogen 31.0 7.0-18.0 mg/dL Creatinine 1.19 0.70-1.30 mg/dL Estimated GFR ( Autumn >60 >=60 mL/min/1.73m 2 Estimated GFR (Non- Sandra >60 >=60 mL/min/1.73m 2 BUN Creatinine Ratio 26.1 Calcium 9.5 8.5-10.1 mg/dL Performing Lab: see note - [facility] LB PTT (Not yet reviewed by pro vider) Interpretation: Performing Lab: Notes/Report: [facility] , Partial Thromboplastin Time 28.9 22.3-36.2 sec Performing Lab: see note - [facility] LB Prothrombin Time INR (Not ye t reviewed by provider) Interpretation: Performing Lab: Notes/Report: [facility] , Prothrombin Time 10.9 9.0-11.6 sec INR 1.03 2.5-3.5 RECURRENT THROMBOSIS DESIRED INR: 2.5-3.5 FOR PROSTHETIC HEART VALVE REPLACEMENT 2.0-3.0 CONDITIONS NOT LISTED BELOW Performing Lab: see note - [facility] LB XR chest 2V (Not yet reviewe d by provider) Interpretation: Performing Lab: Notes/Report: Source Facility: [place] [address] XRay Report Signed Patient: BI HOWARD MR#: [id number] : 1960 Acct:[id number] Age/Sex: 63 / M ADM Date: 05/24/24 Loc: PST Attending Dr: Kole Emery D.P.M. Ordering Physician: Kole Emery D.P.M. Date of Service: 05/24/24 Procedure(s): XR chest 2V Accession Number(s): [id number] cc: Elin Liz M.D.; Kole Emery D.P.M. The [place] [address] Patient Name: BI HOWARD MRN: [id number] date: 1960 Sex: M Assigned Patient Location: [facility] Current Patient Location: Accession/Order Number: [id number] Exam Date: 05/24/2024 12:10 Report Date: 05/25/2024 04:58 At the request of: KOLE EMERY Procedure: XR chest 2V EXAMINATION: XR chest 2V HISTORY: Preop exam COMPARISON: No relevant comparison available. FINDINGS: LUNGS: Mild opacity within lateral left lung base; prominent pericardial fat pad versus infiltrates. Right lung is clear. VASCULATURE: No increased pulmonary vasculature. PLEURA: No pneumothorax, effusion, or pleural thickening. CARDIAC: No cardiomegaly or cardiac silhouette abnormality. MEDIASTINUM: No visible mass or adenopathy. BONES: No fracture or visible bone lesion. OTHER: Negative. XR/XR chest 2V IMPRESSION: 1. Mild left lung base opacities suspected to represent a prominent pericardial pad. Mild lingular infiltrates are not completely excluded. Electronically authenticated by: JACOB MYERS Date: 05/25/2024 04:58 Dictated By: Jacob Myers M.D. Signed By: 05/25/24 0502 DD/ 0458 TD/TT: Tour Escort: [place] [address] XRay Report Signed Patient: BI [place] MR#: [id number] : 1960 Acct:[id number] Age/Sex: 63 / M ADM Date: 05/24/24 Loc: [facility] Attending Dr: Kole Emery D.P.M. Ordering Physician: Kole Emery D.P.M. Date of Service: 05/24/24 Procedure(s): XR chest 2V Accession Number(s): [id number] cc: Elin Liz; Kole Emery D.P.M. [place] [id number] Patient Name: BI HOWARD MRN: [id number] date: 1960 Sex: M Assigned Patient Loc ation: [facility] Current Patient Location: Accession/Order Numb er: [id number] Exam Date: 05/24/2024 12:10 Report Date: 05/25/2024 04:58 At the request of: KOLE EMERY Procedure: XR chest 2V EXAMINATION: XR chest 2V HISTORY: Preop exam COMPARISON: No relev ant comparison available. FINDINGS: LUNGS: Mild opacity within lateral left lung base; prominent pericardial fat pad versus infiltrat es. Right lung is clear. VASCULATURE: No incr eased pulmonary vasculature. PLEURA: No pneumotho rax, effusion, or pleural thickening. CARDIAC: No cardiome stephanie or cardiac silhouette abnormality. MEDIASTINUM: No visi ble mass or adenopathy. BONES: No fracture o r visible bone lesion. OTHER: Negative. X R/XR chest 2V IMPRESSION: 1. Mild left lung ba se opacities suspected to represent a prominent pericardial pad. Mild lingular infiltrates are not completely excluded. Electronically authenticated by: JACOB YMERS Date: 05/25/2024 04:58 Dictated By: Jacob Myers M.D. Signed By: 05/25/24 0502 DD/ 0458 TD/TT: Tour Escort: XR foot RT min 3V (Not yet r eviewed by provider) Interpretation: Performing Lab: Notes/Report: Source Facility: [place] [address] [place] [address] XRay Report Signed Patient: BI HOWARD MR#: [id number] : 1960 Acct:[id number] Age/Sex: 63 / M ADM Date: 05/27/24 Loc: SURGOUT Attending Dr: Kole Emery D.P.M. Ordering Physician: Kole Emery D.P.M. Date of Service: 05/27/24 Procedure(s): XR foot RT min 3V Accession Number(s): [id number] cc: Elin Liz M.D.; Kole Emery D.P.M. [facility] [place] [address] Patient Name: BI HOWARD MRN: [id number] date: 1960 Sex: M [facility] Current Patient Location: Accession/Order Number: [id number] Exam Date: 05/27/2024 11:22 Report Date: 05/30/2024 00:54 At the request of: KOLE EMERY Procedure: XR foot RT min 3V EXAM: XR foot RT min 3V HISTORY: The patient is a 63-year-old male, ulcer COMPARISON: 05/06/2024. XR/XR foot RT min 3V IMPRESSION: There has been further debridement of the previously seen transmetatarsal amputation of all 5 metatarsals since the prior radiographs of 05/06/2024. No surgical complications are seen. Electronically authenticated by: MINERVA DE LUNA Date: 05/30/2024 00:54 Dictated By: MINERVA DE LUNA M.D. Signed By: 05/30/2455 DD/ TD/TT: Tour Escort: [place] [address] XRay Report Signed Patient: BI HOWARD MR#: [id number] : 1960 Acct:[id number] Age/Sex: 63 / M ADM Date: 05/27/24 Loc: SURGOUT Attending Dr: Kole Emery D.P.M. Ordering Physician: Kole Emery D.P.M. Date of Service: 05/27/24 Procedure(s): XR elizabeth t RT min 3V Accession Number(s): [id number] cc: Elin Liz; Kole Emery D.P.M. [facility] [place] [address] Patient Name: BI HOWARD MRN: [id number] date: 1960 Sex: M Assigned Patient Loc ation: SURGOUT Current Patient Location: Accession/Order Numb er: [id number] Exam Date: 05/27/2024 11:22 Report Date: 05/30/2024 00:54 At the request of: KOLE EMERY Procedure: XR foot R T min 3V EXAM: XR foot RT min 3V HISTORY: The patient is a 63-year-old male, ulcer COMPARISON: 05/06/2024. X R/XR foot RT min 3V IMPRESSION: There has been furth er debridement of the previously seen transmetatarsal amputation of all 5 metatarsals since the prior radiographs of 05/06/2024. No surgical complicatio ns are seen. Electronically authenticated by: MINERVA DE LUNA Date: 05/30/2024 00:54 Dictated By: MINERVA DE LUNA M.D. Signed By: 05/30/2455 DD/ TD/TT: Tour Escort: XR foot RT min 3V (Not yet r eviewed by provider) Interpretation: Performing Lab: Notes/Report: Source Facility: [place] [address] XRay Report Signed Patient: BI HOWARD MR#: [id number] : 1960 Acct:[id number] Age/Sex: 63 / M ADM Date: 07/01/24 Loc: Attending Dr: Mirian Blanco Ordering Physician: Mirian Blanco Date of Service: 07/01/24 Procedure(s): XR foot RT min 3V Accession Number(s): [id number] cc: Elin Liz M.D.; Mirian Blanco [place] [address] Patient Name: BI HOWARD MRN: [id number] date: 1960 Sex: M Assigned Patient Location: Current Patient Location: Accession/Order Number: [id number] Exam Date: 07/01/2024 13:46 Report Date: 07/01/2024 13:48 At the request of: MIRIAN BLANCO Procedure: XR foot RT min 3V XR foot RT min 3V 07/01/2024 11:19 AM SIGNS AND SYMPTOMS: RIGHT FOOT PAIN, wound on right foot PROTOCOL: Frontal, lateral, and oblique radiographs of the right foot COMPARISON: 06/01/2024 FINDINGS: There has been amputation of the first through fifth digits with the base of the metatarsals remaining. There is soft tissue swelling along the stump with ulceration. The ulceration is slightly greater right compared to the prior exam. Osteopenia along the remnants of the base of the metatarsals is worse when compared to the prior exam. There is plantar and Achilles surface calcaneal spurring. Degenerative changes are noted at the talonavicular joint. 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 There is soft tissue swelling along the stump with ulceration. The ulceration is slightly greater right compared to the prior exam. Osteopenia along the remnants of the base of the metatarsals is worse when compared to the prior exam. This is consistent with interval development of osteomyelitis. Impression dictated by: Andrei Kaplan M.D.07/01/2024 1:48 PM Dictation Location: [place] [address] Electronically authenticated by: [id number] Y Date: 07/01/2024 13:48 Dictated By: Andrei Kaplan M.D. Signed By: 07/01/24 1350 DD/ 1348 TD/TT: Tour Escort: [place] [address] XRay Report Signed Patient: BI HOWARD MR#: [id number] : 1960 Acct:[id number] Age/Sex: 63 / M ADM Date: 07/01/24 Loc: [facility] Attending Dr: Jennifer Blanco Ordering Physician: Mirian Blanco Date of Service: 07/01/24 Procedure(s): XR elizabeth t RT min 3V Accession Number(s): [id number] cc: Elin Liz; Mirian Blanco [place] [address] Patient Name: BI HOWARD MRN: [id number] date: 1960 Sex: M Assigned Patient Loc ation: [facility] Current Patient Loca tion: [facility] Accession/Order Numb er: [id number] Exam Date: 07/01/2024 13:46 Report Date: 07/01/2024 13:48 At the request of: MIRIAN BLANCO Procedure: XR foot R T min 3V XR foot RT min 3V 07/01/2024 11:19 AM SIGNS AND SYMPTOMS: RIGHT FOOT PAIN, wou nd on right foot PROTOCOL: Frontal, lateral, and oblique radiographs of the right foot COMPARISON: 06/01/2024 FINDINGS: There has been amput ation of the first through fifth digits with the base of the metatarsals rachana ining. There is soft tissue swelling along the stump with ulceration. The ulce ration is slightly greater right compared to the prior exam. Osteopenia myke ng the remnants of the base of the metatarsals is worse when compared to the prior exam. There is plantar and Achilles surface calcaneal spurring. Degenerative changes are noted at the talonavicular joint. X R/XR foot RT min 3V IMPRESSION: Status post amputati on of the first and fifth digits. There is soft tissue swelling along the stump with ulceration. The ulceration is slightly greater right compared to the prior exam. Osteopenia along the remnants of the base of the metatarsals is worse when compared to the prio r exam. This is consistent with interval development of osteomyelitis. Impression dictated by: Andrei Kaplan M.D.07/01/2024 1:48 PM Dictation Location: [place] [address] Electronically authenticated by: [id number] Y Date: 07/01/2024 13:48 Dictated By: Andrei Kpalan M.D. Signed By: 07/01/24 1350 DD/ 1348 TD/TT: Tour Escort: XR foot RT min 3V (Not yet r eviewed by provider) Interpretation: Performing Lab: Notes/Report: Source Facility: [place] [address] [place] [address] XRay Report Signed Patient: BI HOWARD MR#: [id number] : 1960 Acct:[id number] Age/Sex: 63 / M ADM Date: 05/06/24 Loc: Attending Dr: Mirian Blanco Ordering Physician: Mirian Blanco Date of Service: 05/06/24 Procedure(s): XR foot RT min 3V Accession Number(s): [id number] cc: Janet Gomez M.D.; Mirian Blanco [place] [id number] Patient Name: BI HOWARD MRN: [id number] date: 1960 Sex: M Assigned Patient Location: Current Patient Location: Accession/Order Number: [id number] Exam Date: 05/06/2024 09:55 Report Date: 05/09/2024 07:48 At the request of: MIRIAN BLANCO Procedure: XR foot RT min 3V PROCEDURE: XR foot RT min 3V COMPARISON: None. HISTORY: RIGHT FOOT PAIN FINDINGS: BONES:Indication along the base of the metatarsals. Moderate to severe degenerative changes of the foot and hindfoot with enthesopathic calcaneus SOFT TISSUES:Subcutaneous emphysema EFFUSION:None visible. OTHER: Negative. XR/XR foot RT min 3V IMPRESSION: Subcutaneous emphysema, consider infection with a gas-forming organism No plain film evidence of osteomyelitis Electronically authenticated by: ZARINA CHUNG Date: 05/09/2024 07:48 Dictated By: Zarina Chung M.D. Signed By: 05/09/24 0750 DD/ 0748 TD/TT: Tour Escort: [place] [address] XRay Report Signed Patient: BI HOWARD MR#: [id number] : 1960 Acct:[id number] Age/Sex: 63 / M ADM Date: 05/06/24 Loc: Attending Dr: Jennifer Blanco Ordering Physician: Mirian Blanco Date of Service: 05/06/24 Procedure(s): XR elizabeth t RT min 3V Accession Number(s): [id number] cc: Janet Gomez; Mirian Blanco [address] [address] Patient Name: BI HOWARD MRN: [id number] date: 1960 Sex: M Assigned Patient Loc ation: Current Patient Location: Accession/Order Numb er: [id number] Exam Date: 4 09:55 Report Date: 05/09/2024 07:48 At the request of: MIRIAN BLANOC Procedure: XR foot R T min 3V PROCEDURE: XR foot R T min 3V COMPARISON: None. HISTORY: RIGHT FOOT PAIN FINDINGS: BONES:Indication myke ng the base of the metatarsals. Moderate to severe degenerative changes of the foot and hindfoot with enthesopathic calcaneus SOFT TISSUES:Subcuta neous emphysema EFFUSION:None visible. OTHER: Negative. X R/XR foot RT min 3V IMPRESSION: Subcutaneous emphyse ma, consider infection with a gas-forming organism No plain film eviden ce of osteomyelitis Electronically authenticated by: ZARINA CHUNG Date: 05/09/2024 07:48 Dictated By: Maurizio Chung M.D. Signed By: 05/09/24 0750 DD/ 0748 TD/TT: Tour Escort: Acid Fast Culture (Not yet r eviewed by provider) Interpretation: Performing Lab: Notes/Report: [facility] , Acid Fast Culture See Below For Report Specimen has been received and testing has been initiated. Acid Fast Culture Acid Fast Culture Negative Specimen has been received and testing has been initiated. Acid Fast Culture Acid Fast Culture No acid fast bacilli isolated after 6 weeks. Specimen has been received and testing has been initiated. Acid Fast Culture Acid Fast Culture Performed at: [facility] Specimen has been received and testing has been initiated. Acid Fast Culture Acid Fast Culture [address] [place], [place] [id number] Specimen has been received and testing has been initiated. Acid Fast Culture Acid Fast Culture Content Specialist: Chadwick Roa PhD, Phone: [phone] Specimen has been received and testing has been initiated. Acid Fast Culture Performing Lab: see note SEE REPORT - Nursery Manager Id information not found for OBX-specific restaurant manager legend LC - [facility] LB Acid Fast Smear (Not yet rev iewed by provider) Interpretation: Performing Lab: Notes/Report: [facility] , Acid Fast Smear See Below For Report Acid Fast Smear Negative Performing Lab: see note LC - [facility] LB AFB Specimen Processing (Not yet reviewed by provider) Interpretation: Performing Lab: Notes/Report: [facility] , AFB Specimen Processing See Below For Report AFB Specimen Processing AFB Specimen Processing Tissue Grinding AFB Specimen Processing Performing Lab: see note LC - [facility] LB XR foot LT min 3V (Not yet r eviewed by provider) Interpretation: Performing Lab: Notes/Report: Source Facility: [place] [address] XRay Report Signed Patient: BI HOWARD MR#: [id number] : 1960 Acct:[id number] Age/Sex: 63 / M ADM Date: 11/09/23 Loc: Attending Dr: Mirian Blanco Ordering Physician: Mirian Blanco Date of Service: 11/09/23 Procedure(s): XR foot LT min 3V Accession Number(s): [id number] cc: Elin Liz M.D.; Mirian Blanco [place] [address] Patient Name: BI HOWARD MRN: [id number] date: 1960 Sex: M Assigned Patient Location: Current Patient Location: Accession/Order Number: [id number] Exam Date: 11/09/2023 14:36 Report Date: 11/11/2023 06:29 At the request of: MIRIAN BLANCO Procedure: XR foot LT min 3V PROCEDURE: XR foot LT min 3V HISTORY: LEFT FOOT PAIN COMPARISON: None. FINDINGS: BONES:Prior amputation of first toe at the metatarsophalangeal joint. Partial loss of the tuft of second distal phalanx. SOFT TISSUES:Soft tissue swelling of second toe. Dorsal medial soft tissue swelling. EFFUSION:None visible. OTHER: Negative. XR/XR foot LT min 3V IMPRESSION: 1. Soft tissue swelling of second toe. Changes to the tip of the second distal phalanx may represent osteomyelitis or sequela of prior surgery. 2. Prior amputation of first toe. Electronically authenticated by: JACOB MYERS Date: 11/11/2023 06:29 Dictated By: Jacob Myers M.D. Signed By: 11/11/2332 DD/ 8 TD/TT: Tour Escort: The [address] [address] XRay Report Signed Patient: BI HOWARD MR#: [id number] : 1960 Acct:[id number] Age/Sex: 63 / M ADM Date: 11/09/23 Loc: Attending Dr: Jennifer Blanco Ordering Physician: Mirian Blanco Date of Service: 11/09/23 Procedure(s): XR elizabeth t LT min 3V Accession Number(s): [id number] cc: Elin Liz; Mirian Blanco [place] [address] Patient Name: BI HOWARD MRN: [id number] date: 1960 Sex: M Assigned Patient Loc ation: Current Patient Location: Accession/Order Numb er: [id number] Exam Date: 11/09/2023 14:36 Report Date: 11/11/2023 06:29 At the request of: MIRIAN BLANCO Procedure: XR foot L T min 3V PROCEDURE: XR foot L T min 3V HISTORY: LEFT FOOT PAIN COMPARISON: None. FINDINGS: BONES:Prior amputati on of first toe at the metatarsophalangeal joint. Partial loss of the tuft of second distal phalanx. SOFT TISSUES:Soft ti ssue swelling of second toe. Dorsal medial soft tissue swelling. EFFUSION:None visible. OTHER: Negative. X R/XR foot LT min 3V IMPRESSION: 1. Soft tissue swell ing of second toe. Changes to the tip of the second distal phalanx may represen t osteomyelitis or sequela of prior surgery. 2. Prior amputation of first toe. Electronically authenticated by: JACOB MYERS Date: 11/11/2023 06:29 Dictated By: Jacob Myers M.D. Signed By: 11/11/2332 DD/ 8 TD/TT: Tour Escort: HEMOGRAM AND PLATEL (Not yet reviewed by provider) Interpretation: Performing Lab: Notes/Report: [facility] , Hemoglobin 8.3 14.0-18.0 g/dL Hematocrit 25.3 42.0-54.0 % Performing Lab: see note ML - [facility] LB Reason For Referral No Information Medications Medication SIG (Take, Route, Frequency, Duration) Notes Start Date End Date Status oxyCODONE HCl 5 MG 1 tablet as needed Orally every 4 hrs for 5 days As needed 05/27/2024 Active Amoxicillin-Pot Clavulanate 875-125 MG 1 tablet Orally [...] requires 176grams for 30 days 07/01/2024 Active Cephalexin 500 MG 1 capsule Orally every 8 hrs for 14 days 05/27/2024 Active Doxycycline Hyclate 100 MG 1 tablet Orally twice daily for 28 days 07/01/2024 Active Problems Problem Type SNOMED Code ICD Code Onset Dates Problem Status W/U Status Risk Notes Problem Foot ulcer due to type 2 diabetes mellitus (4747489699420) Type 2 diabetes mellitus with foot ulcer (E11.621) Active confirmed Problem Disorder of amputation stump (850728102) Dehiscence of amputation stump (T87.81) Active confirmed Problem Coronary artery disease (71973505) CAD (coronary artery disease) (I25.10) Active confirmed Problem Obstructive sleep apnea syndrome (05867047) ROBYN (obstructive sleep apnea) (G47.33) Active confirmed Problem Diabetic neuropathy (750494265) Diabetic neuropathy (E11.40) Active confirmed Problem Ulcer of left foot (disorder) (597436184) Chronic ulcer of left foot limited to breakdown of skin (L97.521) Active confirmed Problem Chronic obstructive pulmonary disease (36072979) Advanced COPD (J44.9) Active confirmed Problem Decubitus ulcer of left heel, stage II (L89.622) Active confirmed Problem Chronic osteomyelitis of right ankle (1442695675606363 ) Chronic osteomyelitis of right ankle (M86.671) Active confirmed Problem 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 (L97.418) Active confirmed Problem Chronic ulcer of right heel with fat layer exposed (L97.412) Active confirmed Problem Chronic ulcer of left foot with fat layer exposed (L97.522) Active confirmed Encounters Encounter Location Date Provider Diagnosis [facility] [address] [place] [address] [facility] [address] [place] [address] 05/27/2024 Kole [facility] [place] ([facility]) [address] [place] [address] 05/27/2024 Kole [facility] [place] ([facility]OD[facility]) [address] [place] [address] 07/01/2024 Koel [facility] [place] (PODIATRY) [address] [place] [address] 07/12/2024 Kole Emery Plan Of Treatment Pending Test Test Name Order Date CT Abdomen and Pelvis w/o contrast 10/30 CBC AUTO DIFF 05/24/2024 HEMOGRAM AND PLATEL 06/02/2024 PROF CHEM 8 (BAS METB) 05/24/2024 PTT 05/24/2024 AFB Specimen Processing 11/11/2023 Acid Fast Smear 11/11/2023 Acid Fast Culture 11/11/2023 XR foot LT min 3V 11/11/2023 XR foot RT min 3V 05/09/2024 XR foot RT min 3V 07/01/2024 XR foot RT min 3V 05/30/2024 Prothrombin Time INR 05/24/2024 Fungus Stain 11/11/2023 Fungus (Mycology) Culture 11/11/2023 XR chest 2V 05/25/2024 Insurance Providers Payer Name Payer Address Payer Phone Subscriber Number Group Number Insured Name Patient Relationship to Insured Coverage Start Date Coverage End Date [place] [address] [place] [address] [id number] Bi Varela Self - patient is the insured 7 [place] 2ND INS [address] [facility] [id number] Bi Varela Self - patient is the insured
--- OUTSIDE RECORDS SUMMARY | 2024-10-06 14:23 | XMS_ITS | Clinical Summary ---
Author Organization [facility] Address [address] [place] [address] Care Team Providers Care Airport Security Screener Name Role Phone Elin Liz MD Primary Care Provider [phone] Social History Tobacco Use Types Packs/Day Years Used Date Smoking Tobacco: Never Assessed Sex and Gender Information Value Date Recorded Sex Assigned at Not on file Legal Sex Male 3:36 PM EDT Gender Identity Not on file Sexual Orientation Not on file Plan of Treatment Not on file Care Teams Airport Security Screener Relationship Specialty Start Date End Date Elin Liz MD PCP - General 02/01/15
--- OUTSIDE RECORDS SUMMARY | 2024-10-06 14:23 | XMS_ITS | Patient Health Record ---
Author Organization [facility] Address [address] [place] [address] [place] [address] Care Team Providers Care Offal Baler Name Role Phone Elin Liz MD Primary Care Provider Unavailab Maksim Arreaga Unavailable [phone] Reason For Referral No Information Plan Of Treatment No Information Insurance Providers Payer Name Payer Address Payer Phone Subscriber Number Group Number Insured Name Patient Relationship to Insured Coverage Start Date Coverage End Date Medicare Part B [id number] Part [facility] [place] [address] [place] [address] [id number] Bi Beck Self - patient is the insured
--- OUTSIDE RECORDS SUMMARY | 2024-10-06 14:23 | XMS_ITS | Clinical Summary ---
Author Organization [facility] Address [address] [place] [address] Care Team Providers Care Control Systems Drafting Officer Name Role Phone Elin Liz MD Primary Care Provider [phone] Allergies Active Allergy Reactions Criticality Noted Date Comments Peg 3350-Electrolytes Rash 09/15/2016 Promethazine Hcl Other: See Comments 05/10/2013 Metoclopramide Hcl Other: See Comments 09/16/19 17 Sulfa (Sulfonamide Antibiotics) Other: See Comments 05/10/2013 Medications CARVEDILOL ORAL Take by mouth. 18.75 mg. Take one(1) tablet two(2) times daily. Active Aspirin 81 mg tab Take 81 mg by mouth once daily. Active esomeprazole (NEXIUM) 40 mg capsule Take 40 mg by mouth twice daily before meals. Active DIVALPROEX SODIUM (DEPAKOTE ORAL) Take by mouth. 1000 mg. Take one(1) tablet daily. Active spironolactone 25 mg tablet Take 25 mg by mouth once daily. Active gabapentin (NEURONTIN) 600 mg tablet Take 600 mg by mouth once daily. Active clopidogrel (PLAVIX) 75 mg tablet Take 75 mg by mouth once daily. Active losartan (COZAAR) 100 mg tablet Take 100 mg by mouth once daily. Active Ferrous Sulfate 325 mg (65 mg iron) tablet Take 325 mg by mouth three times daily with meals. Active tiotropium (SPIRIVA WITH HANDIHALER) 18 mcg inhalation capsule Inhale 18 mcg as instructed once daily. Active fluticasone-sa lmeterol (ADVAIR DISKUS) 250-50 mcg/dose dsdv Inhale 1 Puff as instructed twice daily. Active topiramate 100 mg tablet Take 100 mg by mouth twice daily. Active ammonium lactate 12 % lotion Apply to affected area as needed. Active diazepam (VALIUM) 2 mg tablet Take 2 mg by mouth daily at bedtime. Active LACTULOSE ORAL Take by mouth. 15 milliliter every day by mouth Active nitroglycerin sublingual 0.4 mg SL tablet Dissolve 0.4 mg under the tongue every 5 minutes as needed. Active tamsulosin 0.4 mg cp24 Take 0.4 mg by mouth once daily. Active ALBUTEROL INHALATION Inhale as instructed. Active canagliflozin (INVOKANA) 100 mg tabIndications :type 2 diabetes mellitus Take 100 mg by mouth daily before breakfast. Indications: TYPE 2 DIABETES MELLITUS Active insulin glargine (LANTUS SOLOSTAR) 100 unit/mL (3 mL) inpnIndication s:diabetes mellitus Inject 30 Units subcutaneously daily at bedtime. Indications: DIABETES MELLITUS Active Insulin Syringe-Needle U-100 (BD ULTRAFINE INSULIN) 1 mL 31 x 5/16 syrgIndication s:diabetes mellitus 1 Each four times daily. Indications: DIABETES MELLITUS Active metFORMIN (GLUCOPHAGE) 1,000 mg tabletIndicati ons:type 2 diabetes mellitus Take 1,000 mg by mouth twice daily with meals. Indications: TYPE 2 DIABETES MELLITUS Active zolpidem (AMBIEN) 10 mg tab Take by mouth at bedtime as needed. Active atorvastatin (LIPITOR) 80 mg tablet Take 80 mg by mouth once daily. Active baclofen (LIORESAL) 10 mg tablet Take 10 mg by mouth three times daily. Active bumetanide (BUMEX) 2 mg tablet Take 2 mg by mouth once daily. Active cyclobenzaprin e (FLEXERIL) 10 mg tablet Take 10 mg by mouth three times daily as needed. Active levomilnacipra n (FETZIMA) 120 mg Cs24 Take by mouth. Act william finasteride (PROSCAR) 5 mg tablet Take 5 mg by mouth once daily. Active FLUTICASONE PROPIONATE (FLONASE NASAL) Use in the nose. Act william oxyMORphone (OPANA ER) 40 mg TR12 Take by mouth. Activ e primidone (MYSOLINE) 50 mg tablet Take 50 mg by mouth four times daily. Active naloxegol (MOVANTIK) 25 mg tablet Take by mouth. Activ e Active Problems Problem Noted Date Diagnosed Date Obesity, Class III, BMI >= 40 (morbid obesity) E 66.01 09/15/2016 Type II or unspecified type diabetes mellitus without mention of complication, uncontrolled 04/10/2014 Overview (04/10/2014): 2005 Gastroparesis 04/10/2014 CHF (congestive heart failure) 04/10/2014 ROBYN (obstructive sleep apnea) 04/10/2014 Dysphagia 04/10/2014 Spinal stenosis 04/10/2014 OA (osteoarthritis) 04/10/2014 Fatty liver 04/10/2014 Renal mass 04/10/2014 Overview (04/10/2014): BENIGN GERD (gastroesophageal reflux disease) 4 Dyslipidemia associated with type 2 diabetes luis litus 04/10/2014 Social History Tobacco Use Types Packs/Day Years Used Date Smoking Tobacco: Former Cigarettes Q uit: 09/15/2000 Comments:Quit 2000 Alcohol Use Standard Drinks/Week Comments No 0 (1 standard drink = 0.6 oz pur e alcohol) Sex and Gender Information Value Date Recorded Sex Assigned at Not on file Legal Sex Male 10:06 AM EST Gender Identity Not on file Sexual Orientation Not on file Last Filed Vital Signs Vital Sign Reading Time Taken Comments Blood Pressure 166/75 09/15/2016 10:09 AM EDT Pulse 71 09/15/2016 10:09 AM EDT Temperature 37 C (98.6 F) 09/15/2016 10:09 AM EDT Respiratory Rate 22 09/15/2016 10:09 AM EDT Oxygen Saturation 96% 09/15/2016 10:09 AM EDT Inhaled Oxygen Concentration - - Weight 149.7 kg (330 lb) 09/15/2016 10:09 AM EDT Height 180.3 cm (5' 11 ) 09/15/2016 10:09 AM EDT Body Mass Index 46.03 09/15/2016 10:09 AM EDT Plan of Treatment Health Maintenance Due Date Last Done Comments Anxiety Screening 08/13/1979 Depression Screening 08/13/1979 HIV Screening 08/13/1979 Hepatitis C Screening 08/13/1979 DTaP,Tdap,Td Vaccine (1 - Tdap) [address] Colonography 2006 Cologuard (FIT-DNA) 2006 Colonoscopy 2006 Colorectal Cancer Screening 2006 Diabetes Screening 2006 Fecal Occult Blood 2006 Prostate Cancer Screening Discussion 2006 Sigmoidoscopy 2006 Pneumococcal Vaccine: 50+ (1 of 1 - PCV) 08/13/2011 Shingrix Vaccine (1 of 2) 08/13/2011 Covid-19 Vaccine (1 - 2023- season) 2024 Influenza Vaccine (Season Ended) 2025 RSV Vaccine (1 - 1-dose 75+ series) 2036 Insurance MEDICAID [place] MEDICARE Care Teams Control Systems Drafting Officer Relationship Specialty Start Date End Date Elin Liz MD [address] [place] [id number] PCP - General Family Medicine 05/03/13
--- OUTSIDE RECORDS SUMMARY | 2024-10-06 14:23 | XMS_ITS | Encounter Summary ---
Author Organization [employer] Address [id number] [address] [place] [address] Care Team Providers Care Manager Research Development Name Role Phone Elin Liz MD Primary Care Provider [phone] Reason for Visit * Reason Comments Med Refill Encounter Details Date Type Department Care Team (Late st Contact Info) Description 01/18/2019 Refill [facility] [address] [place] [address] [address] [place] [address] Wild Cerda PA [address] [place] [address] [address] [place] [address] Intestinal malabsorption, unspecified type; Malnutrition, unspecified type ([facility]); Vitamin D deficiency Social History Tobacco Use Types Packs/Day Years Used Date Smoking Tobacco: Former Cigarettes Q uit: 06/17/2000 Smokeless Tobacco: Never Alcohol Use Standard Drinks/Week Comments No 0 (1 standard drink = 0.6 oz pur e alcohol) Childcare Answer Date Recorded Childcare Unknown 10/13/2018 Employment Answer Date Recorded Employment Unknown 10/13/2018 Sex and Gender Information Value Date Recorded Sex Assigned at Not on file Legal Sex Male 12:30 PM EDT Gender Identity Not on file Sexual Orientation Not on file documented as of this encounter Miscellaneous Notes * Telephone Encounter - URIEL Mckeon - 01/18/2019 3:35 PM EDT Beets 3 month postop labs determine whether more high-dose vitamin-D is needed to correct is moderate vitamin-D deficiency noted preoperatively. Thank you. documented in this encounter Plan of Treatment Not on file documented as of this encounter Goals Goal Patient Goal Type Associated Problems Recent Progress Patient-Stated? Author Home General Yes Chante Espitia, RN Note: Evaluation of progress towards goal: Patients goal is to discharge to home with Jin. documented as of this encounter Visit Diagnoses Diagnosis Intestinal malabsorption, unspecified type Malnutrition, unspecified type Vitamin D deficiency documented in this encounter Additional Health Concerns Infection Onset Date Last Indicated Resolved Time ESBL Comment:INTRAABDOMINAL ASP(12/31/18) 12/31/2018 12/31/201812/10 11:13 PM EDT documented as of this encounter Care Teams Manager Research Development Relationship Specialty Start Date End Date Elin Liz MD [address] [place] [address] PCP - General 09/30/18 documented as of this encounter
--- OUTSIDE RECORDS SUMMARY | 2024-10-06 14:24 | XMS_ITS | Clinical Summary ---
Author Organization [facility] Healthcare Address [address] [place] [address] Care Team Providers Care Reinforcing Steel Worker Name Role Phone Elin Liz MD Primary Care Provider [phone] Allergies Active Allergy Reactions Criticality Noted Date Comments Metoclopramide Other,Rash,Unknown Low 09/15/2016 Other Reaction(s): Twitching Peg 3459-Pop-Vkcor-Nacl-Nasu lf Rash,Unknown Low 12/19/2015 Promethazine Other,Rash,Unknown, Wheezing Low 05/10/2013 Other Reaction(s): Shortness of Breath Sulfa Antibiotics Other,Rash,Unknown, Wheezing Low 05/10/2013 Sulfamethoxazole-Trimeth oprim 12/19/2015 Medications Eliquis 5 MG tablet Active Aspirin Low Dose 81 MG EC tablet Acti ve atorvastatin (Lipitor) 80 MG tablet 1 (one) time each day at the same time Active bumetanide (Bumex) 1 MG tablet Take 3 mg by mouth 2 Active busPIRone (Buspar) 10 MG tablet Active carvedilol (Coreg) 3.125 MG tablet every 12 (twelve) hours. 2 Active Farxiga 10 MG 2 Active Quviviq 25 MG tablet Active diclofenac sodium 1 % gel 3 Active diphenoxylate-atro pine (Lomotil) 2.5-0.025 MG tablet 2 Active divalproex (Depakote) 125 MG EC tablet Active divalproex (Depakote) 500 MG EC tablet Active gabapentin (Neurontin) 800 MG tablet Take 800 mg by mouth in the morning and 800 mg in the evening and 800 mg before bedtime. Active Lantus SoloStar 100 UNIT/ML pen Acti ve isosorbide mononitrate ER (Imdur) 30 MG 24 hr tablet 1 (one) time each day at the same time Active linezolid (Zyvox) 600 MG tablet Take 600 mg by mouth every 12 (twelve) hours 3 Active metFORMIN (Glucophage) 500 MG tablet 3 Active midodrine (Proamatine) 5 MG tablet Active potassium chloride CR (Klor-Con) 10 MEQ ER tablet every 12 (twelve) hours Active potassium chloride CR (Klor-Con M20) 20 MEQ ER tablet Act william Entresto 24-26 MG tablet every 12 (twelve) hours 2 Active spironolactone (Aldactone) 50 MG tablet Take 50 mg by mouth in the morning. Active tamsulosin (Flomax) 0.4 MG 24 hr capsule Take 0.4 mg by mouth in the morning and 0.4 mg before bedtime. Active clonazePAM (KlonoPIN) 1 MG tablet Take 1 tablet by mouth at bedtime 4 Active insulin regular (HumuLIN R U-500) 500 UNIT/ML CONCENTRATED injection 4 Active methotrexate 2.5 MG tablet Take 7 tablets by mouth 1 (one) time per week. 4 025 Active moxifloxacin (Vigamox) 0.5 % ophthalmic solution Administer 1 drop into both eyes in the morning and 1 drop at noon and 1 drop in the evening and 1 drop before bedtime. 4 Active nitroglycerin (Nitrostat) 0.[address] 1 tablet under the tongue every 5 (five) minutes if needed FOR CHEST PAIN FOR 3 DOSES ONLY. IF NO RELIEF, CALL 911 4 Active ondansetron ODT (Zofran-ODT) 8 MG disintegrating tablet Take 1 tablet by mouth every 12 (twelve) hours if needed for vomiting or nausea 4 Active Xtampza ER 18 MG 12 hr abuse-deterrent capsule Take 18 mg by mouth in the morning and 18 mg before bedtime. 4 Active valACYclovir (Valtrex) 1 g tablet Take 1,000 mg by mouth in the morning and 1,000 mg in the evening. 4 Active terazosin (Hytrin) 5 MG capsule Take 1 capsule by mouth at bedtime Active losartan (Cozaar) 100 MG tablet Take 1 tablet by mouth Daily Active tiotropium (Spiriva) [address] 1 capsule into inhaler and inhale in the morning. 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 ([facility]) Inject 1 mg under the skin 1 (one) time per week 9 mL 1 5 025 Active Resolved Problems Problem Noted Date Diagnosed Date Resolved Date COPD without exacerbation 02/05/2023 Acute systolic heart failure 12/01/2022 02/05/2023 Acute on chronic combined sy stolic and diastolic congestive heart failure 11/10/202202/05 Overview (02/05/2023): Last Assessment & Plan: [facility] III Continue GDMT- ASA, bumex, entresto coreg, farxiga, and aldatone Diuretic therapy- bumex 3 mg po bid and will send order for bumex 2 mg IV q Thu-Thu and Thursday with weekly BMP q Thu. 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 12/19/2015 02/05/2023 Carotid artery occlusion 06/22/2013 Encounters Date Type Department Care Team Description 08/31/2024 10:00 AM EDT Office Visit [facility] [address] [place] [address] Laz Romo MD Type 2 diabetes mellitus with hyperglycemia, unspecified whether half-way insulin use ([facility]) (Primary Dx); Vitamin D deficiency; Hyperlipemia, mixed ([facility]); Encounter for dietary consultation; Class 2 severe obesity due to excess calories with serious comorbidity and body mass index (BMI) of 37.0 to 37.9 in adult ([facility]); H/O gastric bypass 08/31/2024 Bamboo flowsheet [facility] [address] [place] [address] Laz Romo MD 07/26/2024 Clinisync Result Encounter [facility] Unsolicited Magdi John, DO 07/26/2024 Clinisync Result Encounter [facility] External [facility] Unsolicited Magdi John, DO 07/25/2024 Telephone [facility] [address] [place] [address] Laz Romo MD Med Refill from Last 3 Months Immunizations Immunization Administration Dates Next Due ABRYSVO - Respiratory syncyt ial virus (RSV), vaccine, bivalent, protein subunit RSV prefusion F, diluent reconstituted, 0.5 mL, PF 02/19/2023 Influenza, Unspecified 02/08/2022,03/06/2020,05/2017 Influenza, injectable, quadrivalent 03/14/2019,1 ,02/08/2015 Influenza, injectable, quadr ivalent, preservative free 02/29/2024,02/19/2023,03/05/2021,04/13,03/11/2016 Pneumococcal Conjugate PCV 13 03/11/2016 Pneumococcal Conjugate PCV 20 02/19/2023 Pneumococcal Polysaccharide PPSV23 05/11/2011 SARS-COV-2 (COVID-19) vaccin e, mRNA, spike protein, LNP, PF, 50 mcg/0.5 mL 02/29/2024,02/19/2023 Td (adult), 5 Lf tetanus tox oid, preservative free, adsorbed 05/18/2013 Zoster, Recombinant 06/02/2022 Zoster, live 02/08/2022 Family History Medical History Relation Name Comments Diabetes Father Hypertension Father Stroke Father Diabetes Mother Hypertension Mother Stroke Mother Relation Name Status Comments Father Mother Social History Tobacco Use Types Packs/Day Years Used Date Smoking Tobacco: Former Cigarettes 1 18 Tobacco Cessation:Counseling Given: Not Answered Comments:Quit 07/2008 Alcohol Use Standard Drinks/Week Comments Never 0 (1 standard drink = 0.6 oz pur e alcohol) Sex and Gender Information Value Date Recorded Sex Assigned at Not on file Legal Sex Male 7:59 PM EDT Gender Identity Not on file Sexual Orientation Perez 01/06/2023 2: 37 PM EDT Last Filed Vital Signs Vital Sign Reading Time Taken Comments Blood Pressure 130/72 08/31/2024 10:09 AM EDT Pulse 83 08/31/2024 10:09 AM EDT Temperature - - Respiratory Rate 18 08/31/2024 10:09 AM EDT Oxygen Saturation 97% 08/31/2024 10:09 AM EDT Inhaled Oxygen Concentration - - Weight 122 kg (269 lb) 08/31/2024 10:09 AM EDT Height 180.3 cm (5' 11 ) 08/31/2024 10:09 AM EDT Body Mass Index 37.52 08/31/2024 10:09 AM EDT Plan of Treatment Upcoming Encounters Date Type Department Care Team (Late st Contact Info) Description 10/11/2024 1:00 PM EDT Office Visit [facility] [address] [place] [address] Reynaldo Thompson, [address] [address] 12/28/2024 1:30 PM EDT Office Visit [facility] [address] [place] [address] Laz Romo MD [address] [place] [address] Health Maintenance Due Date Last Done Comments CT Colonography 1961 FIT-DNA 1961 FIT 1961 FOBT 1961 Sigmoidoscopy 1961 Colonoscopy 07/09/2025 07/10/2015, 05/11/1999 Colorectal Cancer Screening 07/09/2025 Influenza Vaccine Completed 02/29/2024, , 02/08/2022, Additional history exists Procedures Procedure Name Priority Date/Time Associated Diagnosis Comments POCT GLYCOSYLATED HEMOGLOBIN (HGB A1C) Routine 08/31/2024 10:10 AM EDT Type 2 diabetes mellitus with hyperglycemia, 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 ([facility]) POCT GLUCOSE Routine 08/31/2024 10:10 AM EDT Type 2 diabetes mellitus with hyperglycemia, unspecified whether half-way insulin use ([facility]) MRI SPINE THORACIC W/ + W/O CONTRAST 07/26/2024 11:23 AM EDT [facility] C BLOOD CHARCOAL Routine 07/26/2024 10:23 AM EDT [facility] RPR WITH CONF RFX Routine 10:23 AM EDT [facility] IMMUNOFIXATION SERUM Routine 07/26/2024 10:23 AM EDT [facility] SPE Routine 07/26/2024 10:23 AM EDT [facility] EMILI W/REFLEX IF POS Routine 07/26/2024 10:23 AM EDT [facility] VIT B12 Routine 07/26/2024 10:23 AM EDT EXTRA LAV Routine 07/26/2024 10:23 AM EDT [facility] C BLOOD CHARCOAL Routine 07/26/2024 10:16 AM EDT from Last 3 Months Results * POCT glycosylated hemoglobin (Hb A1C) docked device (08/31/2024 10:10 AM EDT) Hemoglobin A1C 5.7 Blood Venous blood specimen / Unknown 08/31/2024 10:10 AM EDT Laz Romo MD POINT OF CARE TEST ENTER/EDIT ORDERABLES Final Result * POCT glucose manually resulted (08/31/2024 10:10 AM EDT) Glucose Blood, POC 133 mg/dL Blood Capillary blood specimen / Unknown 08/31/2024 10:10 AM EDT Laz Romo MD POINT OF CARE TEST ENTER/EDIT ORDERABLES Final Result * MRI SPINE THORACIC W/ + W/O CONTRAST (07/26/2024 11:23 AM EDT) Anatomical Region Laterality Modality Other 07/26/2024 11:2 3 AM EDT Narrative 07/26/2024 2:42 PM EDT Exam Date/Time: 07/26/2024 12:25 EDT Reason for Exam: Other (please specify) Report IMPRESSION: MILD TO MODERATE CENTRAL SPINAL STENOSIS AND MARKED RIGHT NEURAL FORAMINAL NARROWING T11-T12. OTHERWISE, ESSENTIALLY NEGATIVE THORACIC SPINE MRI. EXAM: MRI Spine Thoracic w/ + w/o Contrast DATE: 07/26/2024 11:23 AM CLINICAL HISTORY: Technologist Comments: pt c/o losing feeling in bilat lower extremities getting worse no injury. COMPARISON: Lumbar spine MRI 07/25/2024 TECHNIQUE: Multiplanar MR imaging of the thoracic spine was performed before and after IV contrast. FINDINGS: The spine is visualized from C6-C7 through T12-L1, on the diagnostic sagittal sequences. Bone marrow signal/fracture: Minimal type III degenerative endplate changes at T11. Moderately prominent predominantly anterolateral endplate osteophytosis. Otherwise, unremarkable. Alignment: Thoracic kyphosis and alignment are within normal limits. Spinal cord/conus: The visualized spinal cord is within normal limits of signal intensity and morphology. Paraspinal soft tissues: Paraspinal soft tissues are unremarkable. Lower cervical spine: Mild central spinal stenosis and mild to moderate neural foraminal narrowing at C5-6 and mild neural foraminal narrowing C4-5 and C6-7. Thoracic spine: Moderate hypertrophic facet and ligamentum flavum changes T11- T12, which results in [id number] central spinal stenosis and marked right neural foraminal narrowing. No other significant central spinal stenosis, neural foraminal narrowing, or significant disc protrusions. Contrast: Vueway Contrast amount in ml's: 10.00 Report Ordering Provider: Magdi John FINAL REPORT Dictated: 07/26/2024 2:39 pm Daniel Vincent MD Signed (Electronic Signature): 07/26/2024 2:39 pm Signed by: Daniel Vincent MD Transcribed by: AMBROCIO Technologist: FLOR Procedure Note Radiology, Radiologist, - 07/26/2024 Exam Date/Time: 07/26/2024 12:25 EDT Reason for Exam: Other (please specify) Report IMPRESSION: MILD TO MODERATE CENTRAL SPINAL STENOSIS AND MARKED RIGHTNEURAL FORAMINAL NARROWING T11-T12. OTHERWISE, ESSENTIALLY NEGATIVE THORACIC SPINE MRI. EXAM: MRI Spine Thoracic w/ + w/o Contrast DATE: 07/26/2024 11:23 AM CLINICAL HISTORY: Technologist Comments: pt c/o losing feeling in bilatlower extremities getting worse no injury. COMPARISON: Lumbar spine MRI 07/25/2024 TECHNIQUE: Multiplanar MR imaging of the thoracic spine was performedbefore and after IV contrast. FINDINGS: The spine is visualized from C6-C7 through T12-L1, on the diagnosticsagittal sequences. Bone marrow signal/fracture: Minimal type III degenerative endplatechanges at T11. Moderately prominent predominantly anterolateral endplate osteophytosis.Otherwise, unremarkable. Alignment: Thoracic kyphosis and alignment are within normal limits. Spinal cord/conus: The visualized spinal cord is within normal limits ofsignal intensity and morphology. Paraspinal soft tissues: Paraspinal soft tissues are unremarkable. Lower cervical spine: Mild central spinal stenosis and mild to moderateneural foraminal narrowing at C5-6 and mild neural foraminal narrowing C4-5 andC6-7. Thoracic spine: Moderate hypertrophic facet and ligamentum flavum [id number]- T12, which results in kupk-az-[id number] central spinal stenosis and marked rightneural foraminal narrowing. No other significant central spinal stenosis, neuralforaminal narrowing, or significant disc protrusions. Contrast: Vueway Contrast amount in ml's: 10.00 Report Ordering Provider: Magdi John FINAL REPORT Dictated: 07/26/2024 2:39 pm Daniel Vincent MD Signed (Electronic Signature): 07/26/2024 2:39 pm Signed by: Daniel Vincent MD Transcribed by: AMBROCIO Technologist: FLOR us Magdi John DO [facility] Final Result * EXTRA LAV (07/26/2024 10:23 AM EDT) [facility] WB TUBE COLLECTED Yes [facility] Blood 07/26/2024 10:2 3 AM EDT 07/26/2024 10:33 AM EDT Narrative [facility] - 07/26/2024 10:33 AM EDT Original Ordering Provider: DO Magdi John Magdi John DO LAB BLOOD ORDERABLES Final Resul t [facility] * [facility] VIT B12 (07/26/2024 10:23 AM EDT) [facility] COBALAMINS:MCNC :PT:SER/PLAS:QN : 311 50 - 1,500 pg/mL [facility] Blood 07/26/2024 10:2 3 AM EDT 07/26/2024 2:07 PM EDT Narrative CLIN[facility]NC - 07/26/2024 2:50 PM EDT Original Ordering Provider: DO Magdi John us Magdi John DO CL[facility] Final Result [facility] * (ABNORMAL) [facility] SPE (07/26/2024 10:23 AM EDT) [facility] PROTEIN:MCNC:PT:SER /PLAS:QN: 7.2 6.0 - 8.5 gm/dL [facility] ALBUMIN:[facility]:PT:SER /PLAS:QN:ELECTROPHO RESIS 3.2 2.9 - 4.4 gm/dL [facility] ALPHA 1 GLOBULIN:MCNC:PT:SE R/PLAS:QN:ELECTROPH ORESIS 0.2 0.0 - 0.4 gm/dL [facility] ALPHA 2 GLOBULIN:MCNC:PT:SE R/PLAS:QN:ELECTROPH ORESIS 0.8 0.4 - 1.0 gm/dL [facility] BETA GLOBULIN:MCNC:PT:SE R/PLAS:QN:ELECTROPH ORESIS 1.4(H) 0.7 - 1.3 gm/dL [facility] GAMMA GLOBULIN:MCNC:PT:SE R/PLAS:QN:ELECTROPH ORESIS 1.6 0.4 - 1.8 gm/dL [facility] PROTEIN.MONOCLONAL: MCNC:PT:SER/PLAS:QN :ELECTROPHORESIS Comment: Not Observed gm/dL [facility] Comment:SPE shows asymmetric al gamma. [facility] GLOBULIN:MCNC:PT:SE R:QN:CALCULATED 4.0(H) 2.2 - 3.9 gm/dL [facility] ALBUMIN/GLOBULIN:MR TO:PT:SER/PLAS:QN: 0.8 0.7 - 1.7 [facility] PROTEIN PATTERN:IMP:PT:SER/ PLAS:NOM:ELECTROPHO RESIS Comment [facility] Comment: Faint band in gamma region suspicious for monoclonal immunoglobulin. This band may represent a benign spike as seen in older people or could be a paraprotein as seen in Multiple Myeloma, Waldenstrom's Macroglobulinemia or Lymphoma. Depending on clinical circumstances, further diagnostic studies may include serum immunofixation or serum free light chain quantitation. Performed at: [address] [id number] PhD Crispin Antonio [facility]ORY COMMENT:TXT:PT:REPO RT:LOYD: Comment [facility] Comment: Protein electrophoresis scan will follow via computer, mail, or vice president delivery. Blood 07/26/2024 10:2 3 AM EDT 07/26/2024 11:07 AM EDT Narrative CLIN[facility]NC - 07/29/2024 1:08 PM EDT Original Ordering Provider: DO Magdi John us Magdi John DO [facility] Final Result Performing Organization Address [facility] Co de Phone Number [facility] * [facility] RPR WITH CONF RFX (07/26/2024 10:23 AM EDT) [facility] REAGIN AB:PRTHR:PT:S ER:ORD:RPR Non Reactive Non Reactive [facility] Comment: Performed at: [address] [id number] PhD Crispin Antonio Blood 07/26/2024 10:2 3 AM EDT 07/26/2024 11:07 AM EDT Narrative CLINISYNC - 07/29/2024 1:08 PM EDT Original Ordering Provider: DO Magdi John Magdi John DO CLIN[facility] Final Result Performing Organization Address [facility] de Phone Number [facility] * (ABNORMAL) [facility] IMMUNOFIXATION SERUM (07/26/2024 10:23 AM EDT) [facility] PROTEIN PATTERN:IMP:PT:SE R/PLAS:NOM:IMMUNO FIXATION Comment: [facility] Comment:BECKY shows an asymmet rical IgM suggestive of a monoclonal protein [facility] IGG:MCNC:PT:SER/P LAS:QN: 1473 603 - 1613 mg/dL [facility] FT IGA:MCNC:PT:SER/P LAS:QN: 641(H) 61 - 437 mg/dL [facility] FT IGM:MCNC:PT:SER/P LAS:QN: 76 20 - 172 mg/dL [facility] Comment: Performed at: [address] [id number] PhD Crispin Antonio Blood 07/26/2024 10:2 3 AM EDT 07/26/2024 11:07 AM EDT Narrative CLINISYNC - 07/29/2024 1:08 PM EDT Original Ordering Provider: DO Magdi John Magdi John DO CLINISYNC Final Result Performing Organization Address [facility] de Phone Number [facility] * [facility] C BLOOD CHARCOAL (07/26/2024 10:23 AM EDT) Only the most recent of2 resultswithin the time period is included. [facility] BLOOD CULTURE CHARCOAL Microbiology PROCEDURE: Blood Culture Charcoal 8 [R1] SOURCE: Blood BODY SITE: Hand R COLLECTED DATE/TIME: 07/26/2024 10:23 EDT RECEIVED DATE/TIME: 07/26/2024 11:44 EDT START DATE/TIME: 07/26/2024 11:44 EDT FREE TEXT SOURCE: Magdi John DO, DO, Magdi Wilkins FINAL REPORTS Final Report [] Verified Date/Time: 08/02/2024 12:00 EDT No growth at 7 days. Performing Locations R1: This test was performed at: [facility], [address] [place] [address], [facility] , , [facility] Blood 07/26/2024 10:2 3 AM EDT 07/26/2024 11:44 AM EDT Narrative CLINISYNC - 08/02/2024 12:00 PM EDT Original Ordering Provider: DO Magdi John us Magdi John DO CLIN[facility]NC Final Result Performing Organization Address [facility] de Phone Number [facility] EMILI W/REFLEX IF POS (07/26/2024 10:23 AM EDT) [facility] NUCLEAR AB:PRTHR:PT:SE R:ORD: Negative Negative [facility] Comment: Performed at: [facility] [address] [place] [address] [id number] PhD Crispin Antonio Blood 07/26/2024 10:2 3 AM EDT 07/26/2024 11:07 AM EDT Narrative CLINISYNC - 07/29/2024 1:08 PM EDT Original Ordering Provider: DO Magdi John Magdi John DO CLINISYKASEY Final Result [facility] from Last 3 Months Insurance MEDICARE [place]ICAID [place] Care Teams Reinforcing Steel Worker Relationship Specialty Start Date End Date Elin Liz MD [address] [place] [address] [place] [address] PCP - General Family Medicine 09/27/24
--- OUTSIDE RECORDS SUMMARY | 2024-10-06 14:24 | XMS_ITS | Encounter Summary ---
Author Organization [facility] Address [address] [place] [address] Care Team Providers Care Occupational Therapy Teacher Name Role Phone Elin Liz MD Primary Care Provider [phone] Elin Liz MD Primary Care Provider [phone] Encounter Details Date Type Department Care Team (Late st Contact Info) Description 04/21/2024 Abstract [facility] [address] [place] [id number] Monty Goodrich, DPM [address] [place], [place] [id number] Social History Tobacco Use Types Packs/Day Years Used Date Smoking Tobacco: Former Cigarettes 1 18 Comments:Quit 07/2008 Alcohol Use Standard Drinks/Week Comments [...] Office Visit [facility] [address] [place] [address] Reynaldo Thompson, DO [address] [place] [address] 12/28/2024 1:30 PM EDT Office Visit [facility] [address] [place] [address] Laz Romo MD [address] [place] [address] documented as of this encounter Visit Diagnoses Not on filedocumented in this encounter Care Teams Occupational Therapy Teacher Relationship Specialty Start Date End Date Elin Liz MD PCP - General Family Medicine 03/17/24 09/26/24 Elin Liz MD [address] [place] [phone] PCP - General Family Medicine 09/27/24 documented as of this encounter
--- OUTSIDE RECORDS SUMMARY | 2024-10-06 14:24 | XMS_ITS | Patient Health Record ---
Author Organization [facility] Address [address] [place] [address] Support Name Relationship Address Phone ROMERO CROCKETT Emergency Contact [address] [place] [address] MATT HOWARD Guarantor Unknown Allergies Allergen (clinical drug ingredient) Drug/Non Drug Allergy documented on EMR Reaction Allergy Type Onset Date Status polyethylene glycol 3350 / potassium chloride / sodium bicarbonate / sodium chloride / sodium sulfate Golytely Unknown Drug Allergy Active promethazine Phenergan Unknown Drug Allergy Acti ve metoclopramide Reglan Unknown Drug Allergy Ac tive Substance with sulfonamide structure and antibacterial mechanism of action (substance) Sulfa Antibiotics Unknown Drug Allergy Active Reason For Referral No Information Medications Medication SIG (Take, Route, Frequency, Duration) Notes Start Date End Date Status Spironolactone 25 MG 2 tablets Orally daily Active Losartan Potassium 100 MG 1 tablet Orall y Once a day Active Divalproex Sodium 500 mg TAKE ONE TABLET BY MOUTH TWICE A DAY WITH 125MG TO TOTAL 625MG for 28 Active Tamsulosin HCl 0.4 MG 1 capsule Orally t wice a day (bid) Active Divalproex Sodium 125 mg TAKE ONE TABLET BY MOUTH TWICE A DAY WITH 500MG TABLETS for 28 Active Atorvastatin Calcium 80 MG 1 tablet Orally daily Active Aspirin 81 Active Carvedilol 3.125 MG 1 tablet with food Orally Twice a day Active Bumetanide 1 MG 1 tablet Orally daily Active Farxiga 10 MG 1 tablet Orally ever y morning Active Eliquis 5 MG as directed Activ e Xtampza ER 18 MG 1 capsule with food Orally twice a day (bid) Active Ondansetron 8 MG 1 tablet on the tong ue and allow to dissolve Orally as needed (prn) Active Fluticasone Propionate HFA Active SEROquel XR 50 MG 2 tablet in the evening Orally Once a day for 30 day(s) Active metFORMIN HCl 500 MG 1 tablet Orally twi ce a day (bid) Active Zolpidem Tartrate 10 MG 1 tablet Orally Once a day Active Potassium Chloride ER 10 MEQ 1 tablet Orally Twice a day Active Nitroglycerin 0.4 MG 1 tablet Sublingual as needed (prn) Active Latuda 60 mg TAKE ONE TABLET BY MOUTH DAILY IN THE EVENING WITH FOOD for 13 Not-Taking oxyCODONE HCl 5 MG 1 tablet Orally thre e times a day (tid) as needed (prn) Active Entresto 24-26 MG 1 tablet Orally Twic e a day Active Diphenoxylate-Atropine 2.5-0.025 MG 1 tablet Orally three times a day (tid) as needed (prn) Active Finasteride 5 MG 1 tablet Orally Once a day Active Diclofenac Sodium 1 % as directed Orally as directed Active Quviviq 25 MG 1 tablet Orally Once a day Active Isosorbide Mononitrate ER 30 MG 1 tablet in the morning Orally Once a day Active Gabapentin 800 MG 1 tablet Externally three times a day (tid) Active Social History Tobacco Use: Social History Observation Description Date Details (start date - stop date) Former Smoker NA - NA Tobacco Screen: Question Answer Notes Are you a: former smoker How long has it been since you last smoked? > 10 years Alcohol Screening: Question Answer Notes Did you have a drink containing alcohol in the p ast year? No Points 0 Interpretation Negative Depression Screening (PHQ-9): Question Answer Notes Little interest or pleasure in doing things Avril ral days Feeling down, depressed, or hopeless More than h gustavo the days Trouble falling or staying asleep, or sleeping t oo much More than half the days Feeling tired or having little energy Nearly pedro ry day Poor appetite or overeating Not at all Feeling bad about yourself-o r that you are a failure or have let yourself or your family down Not at all Trouble concentrating on thi ngs, such as reading the newspaper or watching television More than half the days Moving or speaking so slowly that other people could have noticed. Or the opposite being so fidgety or restless that you have been moving around a lot more than usual Not at all Thoughts that you would be b leidy off , or of hurting yourself in some way Not at all Total Score 10 Intepretation Moderate Depression Problems Problem Type SNOMED Code ICD Code Onset Dates Problem Status W/U Status Risk Notes Problem Body mass index 40+ - morbidly obese (681459485) BMI 40.0-44.9, adult (Z68.41) Active confirmed Problem Obese class II ([id number]) BMI 39.0-39.9,adult (Z68.39) Active confirmed Problem Bipolar disorder (80420230) Bipolar depression (F31.9) Active confirmed Plan Of Treatment No Information Insurance Providers Payer Name Payer Address Payer Phone Subscriber Number Group Number Insured Name Patient Relationship to Insured Coverage Start Date Coverage End Date MEDICARE CGS [facility] [place] [address] [id number] MATT REYES Self - patient is the insured 2 [employer] [address] [place] [address] [id number] MATT REYES Self - patient is the insured 2 Medical (General) History Medical History History ICD Code HTN COPD Gastroparesis CHF Diastolic dysfunction Arthritis [place] miscus in bilat legs 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, depression and anx iety 3x's 2008
== END 2024-10-06 14:22 | disposition home or self-care (01) ==
LOC: WC 14:21
PROVIDERS: PCP Internal Medicine Interventional Cardiology; Visit Provider Physician Assistant
DX: E11.621 Type 2 diabetes mellitus with foot ulcer (principal); L97.412 Non-pressure chronic ulcer of right heel and midfoot with fat layer exposed; L97.522 Non-pressure chronic ulcer of other part of left foot with fat layer exposed
CPT/HCPCS: 11043

== ENCOUNTER 2024-12-01 12:26 | Outpatient (OUT) | payer MEDICARE, MEDICAID, SELFPAY ==
[2024-12-01 14:04] LABS: Alanine Aminotransferase 33 U/L (16-63); Albumin Globulin Ratio 0.6; Albumin Level 2.4 g/dL (3.4-5.0); Alkaline Phosphatase 75 U/L (46-116); Aspartate Amino Transferase 27 U/L (15-37); Globulin 4.2 g/dL; Total Protein 6.6 g/dL (6.4-8.2)
== END 2024-12-01 12:27 | disposition home or self-care (01) ==
LOC: LAB 12:28
PROVIDERS: PCP Internal Medicine Interventional Cardiology; Visit Provider Internal Medicine Rheumatology
DX: Z79.899 Other long term (current) drug therapy (principal)
CPT/HCPCS: 36415; 80076; 85652; 86480; 86704; 87340

== ENCOUNTER 2024-12-01 12:34 | Outpatient (OUT) | payer MEDICARE, MEDICAID, SELFPAY ==
[2024-12-01 14:11] LABS: Anion Gap 12.5; Blood Urea Nitrogen 20.0 mg/dL (7.0-18.0); Calcium 9.0 mg/dL (8.5-10.1); Carbon Dioxide 28.0 mmol/L (21.0-32.0); Chloride 104 mmol/L (98-107); Estimated GFR (African America >60 (>=60 mL/min/1.73m^2); Estimated GFR (Non-African Ame >60 (>=60 mL/min/1.73m^2); Glucose 106 mg/dL (74-106); NT Pro B Type Natriuretic Pept 115.0 pg/mL (<=900.0); Potassium 4.5 mmol/L (3.5-5.1); Sodium 140 mmol/L (136-145)
== END 2024-12-01 12:35 | disposition home or self-care (01) ==
LOC: LAB 12:38
PROVIDERS: PCP Internal Medicine Interventional Cardiology; Visit Provider Nurse Practitioner Family
DX: I50.32 Chronic diastolic (congestive) heart failure (principal); Z79.899 Other long term (current) drug therapy
CPT/HCPCS: 36415; 80048; 80076; 83880; 85652; 86480; 86704; 87340

== ENCOUNTER 2024-12-05 12:00 | Outpatient (RCR) | payer MEDICARE, MEDICAID, SELFPAY ==
[2024-11-25] MEDS: BUMETANIDE 1 MG/4 ML VIAL 2 MG IVP (11:56)
[2024-11-25 14:27] VITALS: BP 144/84; PULSE 79; TEMP 36; O2SAT 95
--- NOTE | 2024-11-25 14:29 | PC.NURSE ---
1200 Bumex IVP as ordered, give of 8 mins. patient tolerated well.
[2024-11-25 14:30] VITALS: BP 142/80; PULSE 80; TEMP 36; O2SAT 96
--- NOTE | 2024-11-25 14:31 | PC.NURSE ---
1230 Tolerated IV bumex without any s/s of reaction. Release ambulatory with cane and family member.
[2024-11-28 11:50] VITALS: BP 161/82; PULSE 90; TEMP 37; O2SAT 95
[2024-11-28 12:17] VITALS: BP 161/82
[2024-11-28] MEDS: BUMETANIDE 1 MG/4 ML VIAL 2 MG IVP (12:17)
[2024-12-01 13:10] VITALS: BP 153/81; PULSE 86; TEMP 36.3; O2SAT 93
[2024-12-01 14:15] VITALS: BP 153/81
[2024-12-01] MEDS: BUMETANIDE 1 MG/4 ML VIAL 3 MG IVP (14:15)
[2024-12-05 11:55] VITALS: BP 148/79; PULSE 93; TEMP 36.6; O2SAT 92
[2024-12-05 11:59] VITALS: BP 148/79
[2024-12-05] MEDS: BUMETANIDE 1 MG/4 ML VIAL 3 MG IVP (11:59)
[2024-12-05 12:13] LABS: Anion Gap 9.7; Blood Urea Nitrogen 21.0 mg/dL (7.0-18.0); Calcium 8.9 mg/dL (8.5-10.1); Carbon Dioxide 34.5 mmol/L (21.0-32.0); Chloride 99 mmol/L (98-107); Estimated GFR (African America >60 (>=60 mL/min/1.73m^2); Estimated GFR (Non-African Ame >60 (>=60 mL/min/1.73m^2); Glucose 128 mg/dL (74-106); Potassium 3.2 mmol/L (3.5-5.1); Sodium 140 mmol/L (136-145)
== END 2024-12-08 23:59 | disposition home or self-care (01) ==
LOC: INF 12:00
PROVIDERS: PCP Internal Medicine Interventional Cardiology; Visit Provider Internal Medicine Interventional Cardiology
DX: I50.30 Unspecified diastolic (congestive) heart failure (principal)
CPT/HCPCS: 36592; 80048; 96374; C1887

== ENCOUNTER 2024-12-09 10:36 | Outpatient (OUT) | payer MEDICARE, MEDICAID, SELFPAY ==
--- OUTSIDE RECORDS SUMMARY | 2014-02-08 10:00 | XMS_ITS | Encounter Summary ---
Author Organization [facility] Address [address] [place] [address], [address] [place] [address] Care Team Providers Care Traffic Survey Technician Name Role Phone Unavailable Primary Care Provider Unavailabl e Encounter Details Date Type Department Care Team (Late st Contact Info) Description 02/08/2014 10:00 AM EDT Hospital Encounter [facility] Social History Tobacco Use Types Packs/Day [...]
--- OUTSIDE RECORDS SUMMARY | 2023-07-01 10:15 | XMS_ITS ---
Author Organization [facility] Address [address] [place] [address] Care Team Providers Care Warehouse Representative Name Role Phone David Clark Unavailable [phone] REASON FOR VISIT Transition of care Encounters Encounter Location Date Provider Diagnosis [facility] [address] [place] [address] 07/01/2023 David Clark Plan Of Treatment No Information Progress Notes * MATT HOWARDDOB:0 1960 (64 yo M)Acc No.[id number]:07/01/2023 Behavioral Health Patient: Radha MATT CHRISTIANSEN Provider: LEELEE Valencia :1960 A ge:62 Y S ex:Male Date:07/01/2023 Address:[address] [place], [id number] Subjective: * Chief Complaints: * 1 . Transition of care. * Medical History: Objective: * Vitals: Assessment: Plan: * Treatment: * Images: * Electronic signature of LEELEE Toth on 12/09/2024 at 10:42 AM EDT Sign off status: Pending * Provider: LEELEE Valencia Date: 0 07/01/2023 Generated for Printi ng/Faxing/eTransmitting on: 0 12/09/2024 10:42 AM EDT
--- OUTSIDE RECORDS SUMMARY | 2024-05-27 08:00 | XMS_ITS ---
Author Organization [facility] [place] Address [address] [place] [address] Care Team Providers Care Track Repair Person Name Role Phone Elin Liz Primary Care Provider Bob Rodriguez [phone] REASON FOR VISIT Revision Right TMA Encounters Encounter Location Date Provider Diagnosis [facility] OUT[facility]IENT [address] [place] [phone] 05/27/2024 Bob Emery Plan Of Treatment No Information Progress Notes * Bi WATERMANDOB:0 1960 (64 yo M)Acc No.[id number]:05/27/2024 UNLOCKED PROGRESS NOTE Patient: Radha MARTINEZBi BATISTA Provider: Sharon Emery DPM, MS :1960 A ge:63 Y S ex:Male Date:05/27/2024 Address:[address], [phone] Pcp:Elin Liz Check Out:10:33 AM EST * * Electronic signature of Francisco Javier Emery DPM on 12/09/2024 at 10:41 AM EDT Sign off status: Pending Visit Status: C HK (Check Out) * Provider: Sharon Emery DPM, MS Date: 0 05/27/2024 Generated for Printi ng/Faxing/eTransmitting on: 0 12/09/2024 10:41 AM EDT
--- OUTSIDE RECORDS SUMMARY | 2024-07-01 07:52 | XMS_ITS ---
Author Organization The [facility] in [place] Address [address] [place] [address] Care Team Providers Care Automatic Steel Tie Adjuster Name Role Phone Elin Liz Primary Care Provider Bob Rodriguez [phone] Medications Medication SIG (Take, Route, Frequency, Duration) Notes Start Date End Date Status Amoxicillin-Pot Clavulanate 875-125 MG 1 tablet Orally every 12 hrs for 28 days 07/01/2024 Active Ondansetron 4 MG 1 tablet on the tongue and allow to dissolve Orally every 6 hours for 10 days As needed 07/01/2024 Active Collagenase 250 UNIT/GM 1 application Externally Once a day for 30 days Wound measurements [id number] 07/01/2024 Active Doxycycline Hyclate 100 MG 1 tablet Orally twice daily for 28 days 07/01/2024 Active Encounters Encounter Location Date Provider Diagnosis [facility] (PODIATRY) [address] [place] [address] [place] [address] 07/01/2024 Bob Emery Plan Of Treatment Medication Medication Name Sig Start Date Stop Date Notes Amoxicillin-Pot Clavulanate 875-125 MG 1 tablet Orally every 12 hrs for 28 days 07/01/2024 Ondansetron 4 MG 1 tablet on the tongue and allow to dissolve Orally every 6 hours for 10 days 07/01/2024 Collagenase 250 UNIT/GM 1 application Externally Once a day for 30 days 07/01/2024 Wound measurements [id number] Doxycycline Hyclate 100 MG 1 tablet Orally twice daily for 28 days 07/01/2024 Progress Notes * 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 1960 (63 yo M)Acc No.[id number]:07/01/2024 Patient: Bi RODRIGES :1960 A ge:63 Y S ex:Male Address:[facility] [address] , [place], [address] * Refills Start Amoxicillin-Pot Clavulanate Tablet, 875-125 MG, Orally, 56 Tablet, 1 tablet, every 12 hrs, 28 days, Refills=0 Start Doxycycline Hyclate Tablet, 100 MG, Orally, 56, 1 tablet, twice daily, 28 days, Refills=0 Start Collagenase Ointment, 250 UNIT/GM, Externally, 90 Gram, 1 application, Once a day, 30 days, Refills=1 Start Ondansetron Tablet Disintegrating, 4 MG, Orally, 40 Tablet, 1 tablet on the tongue and allow to dissolve, every 6 hours, 10 days, Refills=0 * true * Date: Generated for Rashmi lewis/Mary/Debraitting on: 0 12/09/2024 10:42 AM EDT
--- OUTSIDE RECORDS SUMMARY | 2024-07-12 11:24 | XMS_ITS ---
Author Organization The [facility] in [place] Address [address] [place] [address] Care Team Providers Care Water And Sewer Systems Superintendent Name Role Phone Elin Liz Primary Care Provider Bob Rodriguez [phone] REASON FOR VISIT wound care medications Medications Medication SIG (Take, Route, Frequency, Duration) Notes Start Date End Date Status Collagenase 250 UNIT/GM 1 application Externally Once a day for 30 days Wound measurements 9.3cmx3.7cmx2.1cm Per dosing calculator, patient requires 176grams for 30 days 07/01/2024 Active Encounters Encounter Location Date Provider Diagnosis [facility] (PODIATRY) [address] [place] [address] [place] [address] 07/12/2024 Bob Emery Plan Of Treatment Medication Medication Name Sig Start Date Stop Date Notes Collagenase 250 UNIT/GM 1 application Externally Once a day for 30 days 07/01/2024 Wound measurements 9.3cmx3.7cmx2.1cm Per dosing calculator, patient requires 176grams for 30 days Progress Notes * 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 1960 (63 yo M)Acc No.[id number]:07/12/2024 Patient: Bi RODRIGES :1960 A ge:63 Y S ex:Male Address:[address] [place], [address] * Refills Refill Collagenase Ointment, 250 UNIT/GM, Externally, 180 grams, 1 application, Once a day, 30 days, Refills=1 * true * Date: Generated for Rashmi lewis/Mary/Yuriy on: 0 12/09/2024 10:42 AM EDT
--- OUTSIDE RECORDS SUMMARY | 2024-12-05 09:48 | XMS_ITS | Continuity of Care Document ---
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 Name Role Phone Elin Liz MD Primary Care Provider Jeb Hernandez MD Attending Provider Janet Gomez Attending Provider [phone] Elsa Benson CMA Attending Provider Boba Elin Mcallister MD Attending Provider [phone] Care Teams Patient Care Team Team Status: Active Member Role Status Dates Elin Liz MD Primary Care Provider Active Visit Care Team Team Status: Inactive Member Role Status Dates Elin Liz MD Primary Care Provider Active Start: September 07, 2024 End: September 07, 2024 Jeb Hernandez MD Attending Provider Active Start: September 07, 2024 End: September 07, 2024 Visit Care Team Team Status: Active Member Role Status Dates Elin Liz MD Primary Care Provider Active Start: September 23, 2024 Janet Gomez Attending Provider Active Start: September 23, 2024 Patient Care Team Team Status: Active Member Role Status Dates Elin Liz MD Primary Care Provider Active Start: November 07, 2024 Elsa Benson CMA Attending Provider Active Start: November 07, 2024 Patient Care Team Team Status: Active Member Role Status Dates Elin Liz MD Primary Care Provider Active Start: November 24, 2024 Elsa Benson CMA Attending Provider Active Start: November 24, 2024 Patient Care Team Team Status: Active Member Role Status Dates Elin Liz MD Primary Care Provider Active Start: November 28, 2024 Elsa Benson CMA Attending Provider Active Start: November 28, 2024 Patient Care Team Team Status: Inactive Member Role Status Dates Elin Liz MD Primary Care Provider Active Start: December 05, 2024 End: December 05, 2024 Elin Liz MD Attending Provider Active St art: December 05, 2024 End: December 05, 2024 Chief Complaint and Reason for Visit Chief Complaint Admit Date ROBYN/ 6MONTHS September 07, 2024 12: 58pm Amb Documentation November 07, 2024 9:19 am Amb Documentation November 24, 2024 8:41 am Amb Documentation November 28, 2024 9:58 am [facility] F/U December 05 1:15pm Reason for Visit Admit Date Insomnia September 07, 2024 12: 58pm Obstructive sleep apnea hypopnea, severe September 07, 2024 12:58pm Restless legs syndrome September 07, 2024 12:58pm Allergies, Adverse Reactions, Alerts Allergen Type Severity Reaction Last Updated Verified Status codeine Allergy Unknown Hives December 05, 2024 1:22pm Yes Active hydralazine Allergy Unknown Hives December 05, 2024 1:22pm Yes Active metoclopramide Allergy Unknown Rash, Comment:twitchin g December 05, 2024 1:22pm Yes Active polyethylene glycol Allergy Unknown Rash December 05, 2024 1:22pm Yes Active polyethylene glycol 3350 Allergy Unknown Rash December 05, 2024 1:22pm Yes Active potassium chloride Allergy Unknown Rash November 092024 1:22pm Yes Active promethazine Allergy Unknown Hives December 05, 2024 1:22pm Yes Active sodium Allergy Unknown Rash December 05, 2024 1:22pm Yes Active sodium bicarbonate Allergy Unknown Rash November 092024 1:22pm Yes Active sodium chloride Allergy Unknown Rash November 1:22pm Yes Active sodium sulfate Allergy Unknown Rash December 05, 2024 1:22pm Yes Active Sulfa (Sulfonamide Antibiotics) Allergy Unknown Hives December 05, 2024 1:22pm Yes Active Social History Smoking Status Status Start Date End Date Date of Observa tion Never smoked tobacco (finding) July 23, 2024 7:40am Observation Status Observation Response Date of Response Legal Sex Male (finding) Sex Assigned At Male 1960 Family History Relationship Condition Age at Onset Recorded Date/T willian brother Diabetes mellitus Unknown father Unknown Hypertension Unknown History of stroke Unknown Heart disease Unknown Malignant neoplasm Unknown Diabetes mellitus Unknown family member Unknown mother Unknown Hypertension Unknown History of stroke Unknown Diabetes mellitus Unknown mother History of stroke Unknown sister Diabetes mellitus Unknown sister Diabetes mellitus Unknown Problems Active Problems Medical Problem Onset Date Status Pressure ulcer, stage 4 Unknown Active COVID-19 Unknown Active Insomnia Unknown Active Organ-limited amyloidosis Unknown Active Gastroparesis Unknown Active Diabetes Unknown Active Diabetic foot ulcer Unknown Active CHF (congestive heart failure) Unknown A ctive 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 Unknown Active Obstructive sleep apnea hypopnea, severe Unknown Active Chronic ulcer of right great toe with fat layer exposed Unknown Active Diabetic neuropathy associated with type 2 diabe julian mellitus Unknown Active Restless legs syndrome Unknown Active Controlled diabetes mellitus with diabetic polyneuropathy, without long-term current use of insulin Unknown Active History of back surgery Unknown Active Osteoarthritis of right knee Unknown Act william Diabetes mellitus with ulcer of lower extremity Unknown Active Nausea & vomiting Unknown Active Abdominal pain Unknown Active Bone infection of left foot Unknown Acti ve Inactive/Resolved Problems Medical Problem Onset Date Status Chest pain with low risk for cardiac etiology Un known Resolved Occluded PICC line Unknown Resolved Medications Medication Status Dose Units Route Directions Qty Days St art Date Stop Date End Date Instructions Adherence Daridorexan t (Quviviq) 25 mg tablet Discont inued 25 MG PO Daily at bedtime September 21, 2023 12:43p m September 21, 2023 12:44 pm Daridorexan t (Quviviq) 25 mg tablet Discont inued 25 MG PO Daily at bedtime September 21, 2023 12:44p m October 14, 2023 4:09p m Gabapentin 800 mg tablet Discont inued 0 .ROUTE .COMPLEX 84 September 24, 2023 10:56a m Augus t 2023 9:40a m TAKE ONE TABLET BY MOUTH THREE TIMES A DAY Apixaban 2.5 mg tablet Discont inued 2.5 MG PO Twice daily November 19, 2023 12:00a m Febru paulo 2024 2:37p m Aspirin 81 mg tablet,chew able Active 81 MG PO Daily November 19, 2023 12:00a m Complies with drug therapy Carvedilol 3.125 mg tablet Discont inued 3.125 MG PO Twice daily November 19, 2023 12:00a m [facility]2024 2:38p m Divalproex 125 mg tablet,zahraa yed release (DR/EC) Discont inued 125 MG PO Daily November 19, 2023 12:00a m [facility]2024 2:40p m Sacubitril- Valsartan (Entresto) 24-26 mg tablet Active 1 TAB PO Twice daily November 19, 2023 12:00a m Complies with drug therapy Dapaglifloz in Propanediol (Farxiga) 10 mg tablet Active 10 MG PO Daily November 19, 2023 12:00a m Complies with drug therapy Ferrous Sulfate 325 mg (65 mg iron) tablet Discont inued 325 MG PO Three times daily as needed for anemia November 19, 2023 12:00a m September 01, 2024 11:31 am Finasteride 5 mg tablet Discont inued 5 MG PO Daily November 19, 2023 12:00a m [facility]2024 2:41p m Fluticasone Propionate (Allergy Relief (Fluticason e)) 50 mcg/actuati on spray,suspe nsion Discont inued 1 SPRAY INTRAN JEANINE Daily November 19, 2023 12:00a m August 29, 2024 2:03p m administer into each nostril Insulin Regular Hum U-500 Conc 500 unit/mL solution Discont inued 0 SUBCUT .COMPLEX November 19, 2023 12:00a m July 23, 2024 8:04a m as directed subcutaneousl y Insulin Glargine (Lantus U-100 Insulin) 100 unit/mL solution Active 30 UNIT SUBCUT Twice daily November 19, 2023 12:00a m Complies with drug therapy Diphenoxyla te-Atropine 2.5-0.025 mg tablet Discont inued 1 TAB PO Four times daily as needed November 19, 2023 12:00a m Augus t 2023 12:22 pm Metformin 500 mg tablet Discont inued 500 MG PO Twice daily November 19, 2023 12:00a m August 04, 2024 8:44a m Naloxone 1 mg/mL syringe Discont inued 1 MG IM As Directed November 19, 2023 12:00a m Febru paulo2024 2:43p m Ondansetron 8 mg tablet,disi ntegrating Discont inued 8 MG PO Daily as needed November 19, 2023 12:00a m Augus t 2023 12:22 pm Oxycodone 5 mg capsule Discont inued 5 MG PO Every 6 hours November 19, 2023 12:00a m August 04, 2024 8:38a m Potassium Chloride 10 mEq capsule, extended release Discont inued 10 MEQ PO Twice daily November 19, 2023 12:00a m Febru paulo2024 2:45p m Daridorexan t (Quviviq) 25 mg tablet Discont inued 25 MG PO Daily at bedtime November 19, 2023 12:00a m Octob er 2023 4:16p m Tamsulosin 0.4 mg capsule Discont inued 0.4 MG PO Daily November 19, 2023 12:00a m Febru paulo 2024 2:48p m Gabapentin 800 mg tablet Discont inued 0 .ROUTE .COMPLEX 84 December 14, 2023 9:40am Septe mber 2023 10:02 pm TAKE ONE TABLET BY MOUTH THREE TIMES A DAY Gabapentin 800 mg tablet Discont inued 0 .ROUTE .COMPLEX 84 2023 10:02p m Octob er 2023 9:04a m TAKE ONE TABLET BY MOUTH THREE TIMES A DAY Clonazepam 1 mg tablet Discont inued 0 PO Daily at bedtime 30 30 savana 2023 5:33pm Octob er 2023 4:15p m 1/2-1 tablet orally daily at bedtime; administer 30 minutes before bedtime Gabapentin 800 mg tablet Discont inued 0 .ROUTE .COMPLEX 84 Febobe r 2023 9:04am Octob er 2023 3:40p m TAKE ONE TABLET BY MOUTH THREE TIMES A DAY Diphenoxyla te-Atropine 2.5-0.025 mg tablet Discont inued 1 TAB PO Four times daily as needed for diarrhea 30 30 Octobe r 2023 8:21am Decem savana 2023 12:29 pm Gabapentin 600 mg tablet Discont inued 600 MG PO Three times daily 90 Novemb er 2023 8:52am Janua ry 2024 9:22a m Gabapentin 600 mg tablet Discont inued 600 MG PO Three times daily Mayua y 2024 9:22am Mayua ry 2024 9:19a m Gabapentin 600 mg tablet Discont inued 0 .ROUTE .COMPLEX 2024 9:19am September 29, 2024 8:20a m TAKE ONE TABLET BY MOUTH THREE TIMES A DAY Sertraline 25 mg tablet Discont inued 25 MG PO Daily August 10, 2024 11:33a m September 01, 2024 11:31 am Fluticasone Propionate 50 mcg/actuati on spray,suspe nsion Active 0 .ROUTE .COMPLEX August 29, 2024 2:03pm INSTILL 2 SPRAYS VIA NASAL ROUTE DAILY Complies with drug therapy Daridorexan t (Quviviq) 50 mg tablet Active 50 MG PO Daily at bedtime September 05, 2024 3:48pm Complies with drug therapy Lidocaine 5 % adhesive patch,medic ated Active 2 PATCH TOPICA L Daily September 06, 2024 12:00a m leave on most painful area for up to 12 hrs Complies with drug therapy Gabapentin 600 mg tablet Active 0 .ROUTE .COMPLEX September 29, 2024 8:20am TAKE ONE TABLET BY MOUTH THREE TIMES A DAY Complies with drug therapy Gabapentin 800 mg tablet Discont inued 800 MG PO Three times daily 2019 1:00am September 24, 2023 10:56 am Apixaban (Eliquis) 5 mg Tablet Discont inued 5 MG PO Twice daily 2019 1:00am November 19, 2023 9:04a m Bumex Discont inued 0.5 MG PO Bedtime 2019 1:00am August 23, 2020 8:08a m Metformin 1,000 mg tablet Discont inued 1000 MG PO Twice daily 2019 1:00am November 19, 2023 9:10a m Terazosin 5 mg Capsule Discont inued 5 MG PO Daily 2019 1:00am November 19, 2023 9:13a m Insulin Glargine (Lantus U-100 Insulin) 100 unit/mL Solution Discont inued 20 UNIT SUBCUT Daily at bedtime 2019 1:00am August 23, 2020 8:20a m Ondansetron Hcl 8 mg tablet Discont inued 8 MG PO Every 8 hours as needed for Nausea 2019 1:00am November 19, 2023 9:13a m Tamsulosin 0.4 mg Capsule Discont inued 0.4 MG PO Daily 2019 1:00am August 23, 2020 8:20a m Pantoprazol e 40 mg Tablet,Zahraa yed Release (/Ec) Discont inued 40 MG PO Daily 2019 1:00am August 23, 2020 8:18a m Nitroglycer in 0.4 mg Tablet, Sublingual Active 0.4 MG SUBLIN GUAL every 5 to 15 minutes as needed for Chest Pain 2019 1:00am Complies with drug therapy Mirtazapine 15 mg tablet Discont inued 15 MG PO Daily 2019 1:00am August 23, 2020 8:20a m Zolpidem 10 mg tablet Discont inued 10 MG PO Daily 2019 1:00am August 13, 2023 9:39a m Tiotropium [place] (Spiriva With Handihaler) 18 mcg Capsule, W/Inhalatio n Device Discont inued 1 CAP INHALA TION Daily 2019 1:00am 2024 2:48p m Oxycodone (Oxycontin) 10 mg Tablet,Oral Only,Ext.Re l.12 Hr Discont inued 20 MG PO Q12H 2019 1:00am November 19, 2023 9:11a m Cephalexin (Keflex) 500 mg capsule Discont inued 500 MG PO Twice daily 28 14 2019 1:00am August 23, 2020 8:17a m Hydralazine 10 mg tablet Discont inued Decemb er 2016 1:00am 2019 2:31p m Atorvastati n 80 mg tablet Active 80 MG PO Daily [facility] er 2016 1:00am Complies with drug therapy Carvedilol 25 mg tablet Discont inued [facility] 2016 1:00am 2019 2:32p m Isosorbide Mononitrate 30 mg tablet extended release 24 hr Discont inued 30 MG PO Daily [facility] 2016 1:00am 2024 2:51p m Divalproex (Depakote) 500 mg tablet,zahraa yed release (DR/EC) Discont inued 1000 MG PO Bedtime [facility] er 2016 1:00am November 19, 2023 9:06a m Potassium Chloride 20 mEq/15 mL liquid Discont inued [facility] 2016 1:00am 2019 2:33p m Baclofen 10 mg tablet Discont inued [facility] 2016 1:00am 2019 2:32p m Esomeprazol e Magnesium 40 mg capsule,del ayed release(DR/ EC) Discont inued [facility] 2016 1:00am 2019 2:31p m Losartan 25 mg tablet Discont inued [facility] 2016 1:00am 2019 2:31p m Bumetanide 1 mg tablet Discont inued 2 MG PO Every morning [facility] 2016 1:00am November 19, 2023 9:14a m Ammonium Lactate 12 % cream Discont inued [facility] 2016 1:00am 2019 2:32p m Oxycodone 30 mg tablet Discont inued [facility] 2016 1:00am paulo2019 2:26p m Doxycycline Hyclate 100 mg tablet Discont inued 1 CAP PO Twice daily [facility] er 2016 1:00am November 19, 2023 9:06a m Lactulose 10 gram/15 mL solution Discont inued [facility] 2016 1:00am 2019 2:31p m Lubiproston e (Amitiza) 24 mcg capsule Discont inued [facility] er 2016 1:00am Febru 2019 2:31p m Canaglifloz in (Invokana) 100 mg tablet Discont inued [facility] er 2016 1:00am 2019 2:32p m Levomilnaci pran (Fetzima) 120 mg capsule,ext ended release 24hr Discont inued [facility] er 2016 1:00am 2019 2:33p m Empaglifloz in (Jardiance) 10 mg tablet Discont inued [facility] 2016 1:00am 2019 2:31p m Insulin Regular Hum U-500 Conc (Humulin R U-500 (Conc) Jessicaikpen) 500 unit/mL (3 mL) [facility] 1:[facility] 2019 2:31p m Bumetanide 1 mg tablet Discont inued 1 MG PO Every morning November 19, 2023 9:05am 2024 2:51p m Bumetanide 1 mg tablet Active 3 MG PO Twice daily 2024 2:38pm Complies with drug therapy Isosorbide Mononitrate 30 mg tablet extended release 24 hr Active 90 MG PO Daily 2024 2:42pm Complies with drug therapy Oxcarbazepi ne 150 mg Tablet Discont inued 150 MG PO Daily August 23, 2020 12:00a m November 19, 2023 9:13a m Carvedilol 12.5 mg Tablet Discont inued 12.5 MG PO Twice daily August 23, 2020 12:00a m November 19, 2023 9:05a m Spironolact one 100 mg Tablet Discont inued 100 MG PO Daily August 23, 2020 12:00a m paulo2024 2:47p m Calcium Citrate 500 mg Tablet, Effervescen t Discont inued 500 MG PO Three times daily August 23, 2020 12:00a m November 19, 2023 9:13a m Losartan 100 mg Tablet Discont inued 100 MG PO Daily August 23, 2020 12:00a m November 19, 2023 9:13a m Cholecalcif racquel (Vitamin D3) (Vitamin D3) 25 mcg (1,000 unit) Capsule Discont inued 25 MCG PO Daily August 23, 2020 12:00a m September 01, 2024 11:31 am Bupropion Hcl 200 mg Tablet Sustained-R elease 12 Hr Discont inued 200 MG PO Daily August 23, 2020 12:00a m August 13, 2023 9:35a m Vortioxetin e (Trintellix ) 20 mg Tablet Discont inued 20 MG PO Daily August 23, 2020 12:00a m August 13, 2023 9:39a m Oxycodone Myristate (Xtampza Er) 18 mg Cap,Sprinkl ,Er12hr(Don t Crush) Active 18 MG PO Twice daily August 23, 2020 12:00a m Complies with drug therapy Magnesium Oxide 400 mg magnesium Tablet Discont inued 400 MG PO Three times daily August 23, 2020 12:00a m November 19, 2023 9:13a m Semaglutide (Ozempic) 1 mg/dose (4 mg/3 mL) pen injector Active 1 MG SUBCUT every week July 23, 2024 12:00a m Complies with drug therapy Daridorexan t (Quviviq) 25 mg tablet Discont inued 25 MG PO Daily at bedtime July 13, 2023 1:00am July 13, 2023 4:38p m Daridorexan t (Quviviq) 25 mg tablet Discont inued 25 MG PO Daily at bedtime July 13, 2023 4:38pm August 13, 2023 9:59a m Daridorexan t (Quviviq) 25 mg tablet Discont inued 25 MG PO Daily at bedtime August 13, 2023 9:56am September 21, 2023 12:44 pm Divalproex 500 mg tablet,zahraa yed release (DR/EC) Discont inued 1000 MG PO Twice daily August 04, 2024 12:00a m September 01, 2024 11:31 am Oxycodone 10 mg tablet Active 10 MG PO Every 4 hours as needed August 04, 2024 12:00a m Complies with drug therapy Diphenoxyla te-Atropine 2.5-0.025 mg tablet Discont inued 1 TAB PO Daily August 04, 2024 12:00a m September 01, 2024 11:31 am Erythromyci n 5 mg/gram (0.5 %) ointment Active 1 APPLIC EYE-JOSE TH Daily August 04, 2024 12:00a m Complies with drug therapy Finasteride 5 mg tablet Discont inued 5 MG PO Daily August 04, 2024 12:00a m September 01, 2024 11:31 am Tiotropium [place] (Spiriva With Handihaler) 18 mcg capsule, w/inhalatio n device Active 1 CAP INHALA TION Daily August 04, 2024 12:00a m puncture 1 cap using device; one dose = 2 inhalations Complies with drug therapy Tamsulosin 0.4 mg capsule Discont inued 0.4 MG PO Daily August 04, 2024 12:00a m September 01, 2024 11:31 am Ergocalcife rol (Vitamin D2) 1,250 mcg (50,000 unit) capsule Discont inued 1250 MCG PO every week August 04, 2024 12:00a m September 01, 2024 11:31 am Ondansetron Hcl 8 mg tablet Active 8 MG PO Every 12 hours as needed December 05, 2024 12:00a m Complies with drug therapy Clonazepam 1 mg tablet Discont inued 0 PO Daily at bedtime 30 October 14, 2023 12:00a m Septe mber 2023 5:35p m 1/2-1 tablet orally daily at bedtime; administer 30 minutes before bedtime Daridorexan t (Quviviq) 50 mg tablet Discont inued 50 MG PO Daily at bedtime 90 90 Octobe r 2023 12:00a m September 05, 2024 3:51p m Valacyclovi r (Valtrex) 1 gram tablet Active 1000 MG PO Twice daily December 29, 2023 12:00a m Complies with drug therapy Prednisolon e Acetate 1 % drops,suspe nsion Discont inued 1 DROPS EYE-JOSE TH Twice daily December 29, 2023 12:00a m September 01, 2024 11:31 am Moxifloxaci n 0.5 % drops Active 1 DROPS EYE-JOSE TH Every 2 hours December 29, 2023 12:00a m Complies with drug therapy Ondansetron 8 mg tablet,disi ntegrating Discont inued 8 MG PO Daily as needed for nausea and vomiting December 29, 2023 12:18p m Octob er 2023 3:22p m Diphenoxyla te-Atropine 2.5-0.025 mg tablet Discont inued 1 TAB PO Four times daily as needed for diarrhea December 29, 2023 12:19p m Octob er 2023 8:22a m Ondansetron 8 mg tablet,disi ntegrating Discont inued 8 MG PO Daily as needed for nausea and vomiting Febobe r 2023 3:22pm September 01, 2024 11:31 am Gabapentin 600 mg tablet Discont inued 600 MG PO Three times daily Febobe r 2023 3:39pm Novem savana 2023 8:52a m Apixaban (Eliquis) 5 mg tablet Active 5 MG PO Twice daily 2024 1:00am Complies with drug therapy Carvedilol 6.25 mg tablet Discont inued 6.25 MG PO Twice daily 2024 1:00am July 13, 2024 11:34 am Spironolact one 50 mg tablet Active 50 MG PO Daily [facility]2024 1:00am Complies with drug therapy Sertraline 25 mg tablet Discont inued 25 MG PO Daily [facility] 2024 1:00am August 10, 2024 11:34 am Methotrexat e Sodium 2.5 mg tablet Discont inued 2.5 MG PO every week 2024 1:00am August 04, 2024 8:45a m Folic Acid 1 mg tablet Active 1 MG PO Daily [facility] 2024 1:00am Complies with drug therapy Diclofenac Sodium 1 % gel Active 2 GM TOPICA L Four times daily [facility]2024 1:00am Complies with drug therapy Doxycycline Hyclate 100 mg capsule Discont inued 100 MG PO Twice daily [facility] 2024 1:00am September 01, 2024 11:13 am Collagenase Clostridium Histo. (Santyl) 250 unit/gram ointment Active 1 APPLIC TOPICA L Daily 2024 1:00am Complies with drug therapy Methotrexat e Sodium 2.5 mg tablet Active 0 PO every week August 04, 2024 8:41am 17.5mg orally every week; Complies with drug therapy Metoprolol Succinate 25 mg tablet extended release 24 hr Active 25 MG PO Once July 13, 2024 1:00am Complies with drug therapy Amoxicillin -Pot Clavulanate 875-125 mg tablet Discont inued 1 TAB PO Twice daily July 13, 2024 1:00am August 04, 2024 8:45a m Entecavir 0.5 mg tablet Active 0.5 MG PO Daily September 01, 2024 12:00a m Complies with drug therapy Aripiprazol e 5 mg tablet Active 5 MG PO Daily September 01, 2024 12:00a m Complies with drug therapy Lamotrigine 25 mg tablet Active 50 MG PO Daily September 01, 2024 12:00a m Complies with drug therapy Metformin 500 mg tablet Active 500 MG PO Twice daily September 01, 2024 12:00a m Complies with drug therapy Immunizations Immunization Event Date Not Given Reason Dose Number Conduit Mechanic Lot Number Vaccine Information Statement (VIS) Detail [id number] (Moderna) February 08, 2022 influenza, unspecified formulation March 06, 2020 influenza, unspecified formulation February 08, 2022 Tetanus, Diphtheria adult, 5 Lf pres free abs May 18, 2013 Shingles (Zoster) February 08, 2022 Relevant Diagnostic Tests and/or Laboratory Data Laboratory Results Test Collection Date/Time Result Date/Time Result Interpretation Reference Range Result Comment Performing Site B-Type Natriuretic Peptide September 23, 2024 1:40pm September 23, 2024 1:40pm 63.0 pg/mL <=900.0 Anion Gap September 23, 2024 1:40pm September 23, 2024 1:40pm 10.8 Basophils # (Auto) September 23, 2024 1:40pm September 23, 2024 1:40pm 0.1 10 3/uL 0.0-0.1 Albumin/Globu helder Ratio September 23, 2024 1:40pm September 23, 2024 1:40pm 0.7 Basophils (%) (Auto) September 23, 2024 1:40pm September 23, 2024 1:40pm 0.7 % 0.2-2.0 Albumin September 23, 2024 1:40pm September 23, 2024 1:40pm 3.0 g/dL Below low normal 3.4-5.0 Eosinophils # (Auto) September 23, 2024 1:40pm September 23, 2024 1:40pm 0.1 10 3/uL 0.0-0.7 Alkaline Phosphatase September 23, 2024 1:40pm September 23, 2024 1:40pm 79 U/L 46-116 Eosinophils (%) (Auto) September 23, 2024 1:40pm September 23, 2024 1:40pm 1.6 % 0.9-7.0 Alanine Aminotransfer ase (ALT/SGPT) September 23, 2024 1:40pm September 23, 2024 1:40pm 15 U/L Below low normal 16-63 Hematocrit September 23, 2024 1:40pm September 23, 2024 1:40pm 34.6 % Below low normal 42.0-54.0 Aspartate Amino Transf (AST/SGOT) September 23, 2024 1:40pm September 23, 2024 1:40pm 19 U/L 15-37 Hemoglobin September 23, 2024 1:40pm September 23, 2024 1:40pm 10.6 g/dL Below low normal 14.0-18.0 BUN/Creatinin e Ratio September 23, 2024 1:40pm September 23, 2024 1:40pm 22.2 Immature Granulocyte # (Auto) September 23, 2024 1:40pm September 23, 2024 1:40pm 0.02 10 3/uL 0.00-0.03 Blood Urea Nitrogen September 23, 2024 1:40pm September 23, 2024 1:40pm 22.0 mg/dL Above high normal 7.0-18.0 Immature Granulocyte % (Auto) September 23, 2024 1:40pm September 23, 2024 1:40pm 0.3 % 0.0-0.5 Calcium Level September 23, 2024 1:40pm September 23, 2024 1:40pm 9.2 mg/dL 8.5-10.1 Lymphocytes # (Auto) September 23, 2024 1:40pm September 23, 2024 1:40pm 1.7 10 3/uL 1.2-3.8 Chloride Level September 23, 2024 1:40pm September 23, 2024 1:40pm 105 mmol/L 98-107 Lymphocytes (%) (Auto) September 23, 2024 1:40pm September 23, 2024 1:40pm 23.4 % 20.5-60.0 Carbon Dioxide Level September 23, 2024 1:40pm September 23, 2024 1:40pm 27.3 mmol/L 21.0-32.0 Mean Corpuscular Hemoglobin September 23, 2024 1:40pm September 23, 2024 1:40pm 25.6 pg Below low normal 25.9-34.0 Creatinine September 23, 2024 1:40pm September 23, 2024 1:40pm 0.99 mg/dL 0.70-1.30 Mean Corpuscular Hemoglobin Concent September 23, 2024 1:40pm September 23, 2024 1:40pm 30.6 g/dL 29.9-35.2 Estimated GFR () September 23, 2024 1:40pm September 23, 2024 1:40pm >60 >=60 mL/min/1.7 3m 2 Mean Corpuscular Volume September 23, 2024 1:40pm September 23, 2024 1:40pm 83.6 fL 80.0-94.0 Estimated GFR (Non- September 23, 2024 1:40pm September 23, 2024 1:40pm >60 >=60 mL/min/1.7 3m 2 Monocytes # (Auto) September 23, 2024 1:40pm September 23, 2024 1:40pm 0.3 10 3/uL 0.3-0.8 Globulin September 23, 2024 1:40pm September 23, 2024 1:40pm 4.4 g/dL Monocytes (%) (Auto) September 23, 2024 1:40pm September 23, 2024 1:40pm 4.2 % 1.7-12.0 Glucose Level September 23, 2024 1:40pm September 23, 2024 1:40pm 88 mg/dL 74-106 Mean Platelet Volume September 23, 2024 1:40pm September 23, 2024 1:40pm 10.5 fL 9.5-13.5 Potassium Level September 23, 2024 1:40pm September 23, 2024 1:40pm 4.1 mmol/L 3.5-5.1 Neutrophils # (Auto) September 23, 2024 1:40pm September 23, 2024 1:40pm 5.1 10 3/uL 1.4-6.5 Sodium Level September 23, 2024 1:40pm September 23, 2024 1:40pm 139 mmol/L 136-145 Neutrophils (%) (Auto) September 23, 2024 1:40pm September 23, 2024 1:40pm 69.8 % 43.0-75.0 Total Bilirubin September 23, 2024 1:40pm September 23, 2024 1:40pm 0.6 mg/dL 0.2-1.0 Platelet Count September 23, 2024 1:40pm September 23, 2024 1:40pm 332 10 3/uL 150-450 Total Protein September 23, 2024 1:40pm September 23, 2024 1:40pm 7.4 g/dL 6.4-8.2 Red Blood Count September 23, 2024 1:40pm September 23, 2024 1:40pm 4.14 10 6/uL Below low normal 4.70-6.10 Red Cell Distribution Width September 23, 2024 1:40pm September 23, 2024 1:40pm 16.1 % Above high normal 11.0-15.0 Corrected White Blood Count September 23, 2024 1:40pm September 23, 2024 1:40pm 7.3 10 3/uL 4.0-11.0 Vital Signs Vital Reading Result Reference Range Collection Date/Time Height 71 [in_i] September 07 12:50pm Weight 126.55 kg September 07 12:50pm Heart Rate 94 /min 60-100 September 07 12:50pm Oxygen saturation by Pulse oximetry 95 % 95-100 September 07, 2024 12: 50pm BP Systolic 148 mm[Hg] 100-140 September 07 12:50pm BP Diastolic 73 mm[Hg] 60-100 September 07 12:50pm BMI (Body Mass Index) 38.9 kg/m2 September 07, 2024 12:50pm Height 71 [in_i] December 05, 2024 1:22pm Weight 121.10 kg December 05, 2024 1:22pm Heart Rate 81 /min 60-100 December 05, 2024 1:22pm Respiratory rate 14 /min 12-24 December 05, 2024 1:22pm Oxygen saturation by Pulse oximetry 94 % 95-100 December 05, 2024 1:22 pm BP Systolic 119 mm[Hg] 100-140 December 05, 2024 1:22pm BP Diastolic 78 mm[Hg] 60-100 December 05, 2024 1:22pm BMI (Body Mass Index) 37.2 kg/m2 November 092024 1:22pm Advance Directives Advance Directive Response Recorded Date/ Time Advance Directives No June 2:18pm Insurance Providers Guarantor Bi Zapata Address [address] [address] Contact Info. Home Phone: Payer Policy Id Subscriber's Name Subscriber Id Effectiv e Date Expiration Date Medicaid [id number] Bi Waterman [id number] Medicare [id number] Bi Waterman [id number] Encounters Encounter Location(s) Arrival/Admit Date Discharge/Depart Date Provider(s) Departed Physician/Prov ider Office Visit -[facility] September 07, 2024 12:58pm September 07, 2024 1:38pm Jeb Hernandez MD Non-patient / Non-visit -[facility] September 23, 2024 1:40pm Janet Gomez Non-patient / Non-visit -[facility] November 07, 2024 9:19am Elsa Benson CMA Non-patient / Non-visit -[facility] November 24, 2024 8:41am Elsa Benson CMA Non-patient / Non-visit -[facility] November 28, 2024 9:58am Elsa Benson CMA Departed Physician/Prov ider Office Visit -[facility] December 05, 2024 1:15pm December 05, 2024 1:47pm Elin Liz MD Recent Diagnosis Onset Date Admit Date Insomnia Unknown September 07, 2024 12:58pm Obstructive sleep apnea hypopnea, severe Unknown September 07, 2024 12:58pm Restless legs syndrome Unknown August 12:58pm Assessments Diagnosis Onset Date Resolution Status Admit Date Insomnia acute September 07 12:58pm Obstructive sleep apnea hypopnea, severe acute September 07 12:58pm Restless legs syndrome acute Ap 2024 12:58pm Plan of Treatment Author Jeb Hernandez [facility] Authored September 07, 2024 2:1 7pm Patient is stable on present therapy. Will make no changes to present therapy as presently prescribed. Refills were given as listed below. We will see the patient back in 6 months but he was encouraged to call us with any new pulmonary issues or concerns. Future Tests Future scheduled test information is unavailable Pending Tests Pending diagnostic test information is unavailable Future Visits Future appointment information is unavailable Referrals to Other Providers Referral information is unavailable Future Procedures Future procedure information is unavailable Future Medications Future medication information is unavailable Patient Instructions Patient instructions are unavailable
--- OUTSIDE RECORDS SUMMARY | 2024-12-09 10:42 | XMS_ITS | Encounter Summary ---
Author Organization [employer] Address [id number] [address] [place] [address] Care Team Providers Care Puller Machine Name Role Phone Elin Liz MD Primary Care Provider [phone] Reason for Visit * Reason Comments Med Refill Encounter Details Date Type Department Care Team (Late st Contact Info) Description 01/18/2019 Refill [facility]-B[facility]ric [address] [place] [address] [address] [place] [address] Wild Cerda PA [address] [place] [address] [address] [place] [address] Intestinal malabsorption, unspecified type; Malnutrition, unspecified type ([facility]); Vitamin D deficiency Social History Tobacco Use [...] documented as of this encounter Care Teams Puller Machine Relationship Specialty Start Date End Date Elin Liz MD [address] [place] [address] PCP - General 09/30/18 documented as of this encounter
--- OUTSIDE RECORDS SUMMARY | 2024-12-09 10:42 | XMS_ITS | Clinical Summary ---
Author Organization [facility] Address [address] [place] [address], [address] [place] [address] Care Team Providers Care Retreader Name Role Phone Elin Liz MD Primary Care Provider [phone] Social History Tobacco Use Types Packs/Day Years Used Date Smoking Tobacco: Never Assessed Sex and Gender Information Value Date Recorded Sex Assigned at Not on file Legal Sex Male 3:36 PM EDT Gender Identity Not on file Sexual Orientation Not on file Plan of Treatment Not on file Care Teams Retreader Relationship Specialty Start Date End Date Elin Liz MD PCP - General 02/01/15
--- OUTSIDE RECORDS SUMMARY | 2024-12-09 10:42 | XMS_ITS | Patient Health Record ---
Author Organization [facility] Address [address] [place] [address] [place] [address] Care Team Providers Care Industrial Relations Specialist Name Role Phone Elin Liz MD Primary Care Provider Unavailab Maksim Arreaga Unavailable [phone] Reason For Referral No Information Plan Of Treatment No Information Insurance Providers Payer Name Payer Address Payer Phone Subscriber Number Group Number Insured Name Patient Relationship to Insured Coverage Start Date Coverage End Date Medicare Part B J-15 Part [facility] [place] [address] [id number] Bi Beck Self - patient is the insured
--- OUTSIDE RECORDS SUMMARY | 2024-12-09 10:42 | XMS_ITS | Patient Health Record ---
Author Organization [facility] [place] Address [address] [place] [address] Care Team Providers Care Glazier Apprentice Name Role Phone Elin Liz Primary Care Provider Kole Rodriguez Unavailable [phone] Results Component Value Reference Range Notes CBC AUTO DIFF (Not yet revie wed by provider) Interpretation: Performing Lab: Notes/Report: [facility] , White Blood Count 6.4 4.0-11.0 [...] Performing Lab: see note ML - [facility] LB PROF CHEM 8 (BAS METB) (Not yet reviewed by provider) Interpretation: Performing Lab: Notes/Report: [facility] , Sodium 138 136-145 mmol/L Potassium [...] 9.5 8.5-10.1 mg/dL Performing Lab: see note ML - [facility] PTT (Not yet reviewed by pro vider) Interpretation: Performing Lab: Notes/Report: [facility] , Partial Thromboplastin Time 28.9 22.3-36.2 sec Performing Lab: see note - [facility] LB Prothrombin Time INR (Not ye t reviewed by provider) Interpretation: Performing Lab: Notes/Report: [facility] , Prothrombin Time 10.9 9.0-11.6 sec INR 1.03 2.5-3.5 RECURRENT THROMBOSIS DESIRED INR: 2.5-3.5 FOR PROSTHETIC HEART VALVE REPLACEMENT 2.0-3.0 CONDITIONS NOT LISTED BELOW Performing Lab: see note ML - [facility] LB XR chest 2V (Not yet reviewe d by provider) Interpretation: Performing Lab: Notes/Report: Source Facility: [facility] [place] [address] [place] [address] XRay Report Signed Patient: SALDAÑABI GARCIA MR#: [id number] : 1960 Acct:[id number] Age/Sex: 63 / M ADM Date: 05/24/24 Loc: PST Attending Dr: Kole Emery D.P.M. Ordering Physician: Kole Emery D.P.M. Date of Service: 05/24/24 Procedure(s): XR chest 2V Accession Number(s): [id number] cc: Elin Liz M.D.; Kole Emery D.P.M. [place] [address] Patient Name: BI [place] MRN: [id number] date: 1960 Sex: M [facility] Current Patient Location: Accession/Order Number: [id number] Exam Date: 05/24/2024 12:10 Report Date: 05/25/2024 [...] Signed By: 05/25/24 0502 DD/ 0458 TD/TT: Assistant Professor Of Dietetics: [place] [address] XRay Report Signed Patient: BI [place] MR#: [id number] : 1960 Acct:[id number] Age/Sex: 63 / M ADM Date: 05/24/24 Loc: PST Attending Dr: Kole Emery D.P.M. Ordering Physician: oKle Emery D.P.M. Date of Service: 05/24/24 Procedure(s): XR suman st 2V Accession Number(s): [id number] cc: Elin Liz; Kole Emery D.P.M. [place] [address] Patient Name: BI [place] MRN: [id number] date: 1960 Sex: M Assigned Patient Location: SURGOUT Current Patient Location: Accession/Order Numb er: [id number] Exam Date: 05/24/2024 12:10 Report Date: 05/25/2024 04:58 At the request of: KOLE EMERY Procedure: XR chest 2V EXAMINATION: XR chest 2V HISTORY: Preop exam COMPARISON: No relev ant comparison available. FINDINGS: LUNGS: Mild opacity within lateral left lung base; prominent pericardial fat pad versus infiltrat es. Right lung is clear. VASCULATURE: No increased pulmonary vasculature. PLEURA: No pneumotho rax, effusion, [...] Signed By: 05/25/24 0502 DD/ 0458 TD/TT: Assistant Professor Of Dietetics: XR foot RT min 3V (Not yet r eviewed by provider) Interpretation: Performing Lab: Notes/Report: Source Facility: [facility] [place] [address] [place] [address] XRay Report Signed Patient: BI [place] MR#: [id number] : 1960 Acct:[id number] Age/Sex: 63 / M ADM Date: 07/01/24 Loc: Attending Dr: Mirian Blanco Ordering Physician: Mirian Blanco Date of Service: 07/01/24 Procedure(s): XR foot RT min 3V Accession Number(s): [id number] cc: Elin Liz M.D.; Mirian Blanco [place] [id number] Patient Name: BI [place] MRN: [id number] date: 1960 Sex: M Assigned Patient Location: Current Patient Location: Accession/Order Number: [id number] Exam Date: 07/01/2024 13:46 Report Date: 07/01/2024 [...] Andrei Kaplan M.D.07/01/2024 1:48 PM Dictation Location: [place] [address] Electronically authenticated by: [id number] Y Date: 07/01/2024 13:48 Dictated By: Andrei Kaplan M.D. Signed By: 07/01/24 1350 DD/ 1348 TD/TT: Assistant Professor Of Dietetics: [address] [address] XRay Report Signed Patient: BI [place] MR#: [id number] : 1960 Acct:[id number] Age/Sex: 63 / M ADM Date: 07/01/24 Loc: Attending Dr: Jennifer Blanco Ordering Physician: Mirian Blanco Date of Service: 07/01/24 Procedure(s): XR elizabeth t RT min 3V Accession Number(s): [id number] cc: Elin Liz; Mirian Blanco [address] [address] Patient Name: BI [place] MRN: [id number] date: 1960 Sex: M Assigned Patient Location: Current Patient Location: Accession/Order Numb er: [id number] Exam Date: 07/01/2024 13:46 Report Date: 07/01/2024 [...] Andrei Kaplan M.D.07/01/2024 1:48 PM Dictation Location: [place] [address] Electronically authenticated by: [id number] Y Date: 07/01/2024 13:48 Dictated By: Andrei Kaplan M.D. Signed By: 07/01/24 1350 DD/ 1348 TD/TT: Assistant Professor Of Dietetics: XR foot RT min 3V (Not yet r eviewed by provider) Interpretation: Performing Lab: Notes/Report: Source Facility: [place] [address] XRay Report Signed Patient: BI [place] MR#: [id number] : 1960 Acct:[id number] Age/Sex: 63 / M ADM Date: 05/06/24 Loc: Attending Dr: Mirian Blanco Ordering Physician: Mirian Blanco Date of Service: 05/06/24 Procedure(s): XR foot RT min 3V Accession Number(s): [id number] cc: Janet Gomez M.D.; Mirian Blanco [place] [address] Patient Name: BI [place] MRN: [facility]:[id number] date: 1960 Sex: M Assigned Patient Location: Current Patient Location: Accession/Order Number: [id number] Exam Date: 05/06/2024 09:55 Report Date: 05/09/2024 [...] Dictated By: Zarina Chung M.D. Signed By: 05/09/24749 DD/ 7 TD/TT: Assistant Professor Of Dietetics: [place] [address] XRay Report Signed Patient: BI [place] MR#: [id number] : 1960 Acct:[id number] Age/Sex: 63 / M ADM Date: 05/06/24 Loc: Attending Dr: Jennifer Blanco Ordering Physician: Mirian Blanco Date of Service: 05/06/24 Procedure(s): XR elizabeth t RT min 3V Accession Number(s): [id number] cc: Janet Gomez; Mirian Blanco [place] [id number] Patient Name: BI [place] MRN: [id number] date: 1960 Sex: M Assigned Patient Location: Current Patient Location: Accession/Order Numb er: [id number] Exam Date: 09:55 Report Date: 05/09/2024 07:48 At the request of: MIRIAN BLANCO Procedure: XR foot R T min 3V PROCEDURE: XR foot R T min 3V COMPARISON: None. HISTORY: RIGHT FOOT PAIN FINDINGS: BONES:Indication myke ng the base of the metatarsals. Moderate to severe degenerative changes of the foot and hindfoot with enthesopathic calcaneus SOFT TISSUES:Subcutaneous emphysema EFFUSION:None visible. OTHER: Negative. X R/XR foot RT min 3V IMPRESSION: Subcutaneous emphyse ma, consider infection with a gas-forming organism No plain film eviden ce of osteomyelitis Electronically authenticated by: ZARINA CHUNG Date: 05/09/2024 07:48 Dictated By: Maurizio Chung M.D. Signed By: 05/09/24749 DD/ 0748 TD/TT: Assistant Professor Of Dietetics: HEMOGRAM AND PLATEL (Not yet reviewed by provider) Interpretation: Performing Lab: Notes/Report: [facility] , Hemoglobin 8.3 14.0-18.0 g/dL Hematocrit 25.3 42.0-54.0 % Performing Lab: see note ML - [facility] XR foot RT min 3V (Not yet r eviewed by provider) Interpretation: Performing Lab: Notes/Report: Source Facility: [facility] [place] [address] XRay Report Signed Patient: BI [place] MR#: [id number] : 1960 Acct:[id number] Age/Sex: 63 / M ADM Date: 05/27/24 Loc: SURGOUT Attending Dr: Kole Emery D.P.M. Ordering Physician: Kole Emery D.P.M. Date of Service: 05/27/24 Procedure(s): XR foot RT min 3V Accession Number(s): [id number] cc: Elin Liz M.D.; Kole Emery D.P.M. [place] [address] Patient Name: BI HOWARD MRN: [id number] date: 1960 Sex: M [facility] Current Patient Location: Accession/Order Number: [id number] Exam Date: 05/27/2024 11:22 Report Date: 05/30/2024 [...] LUNA M.D. Signed By: 05/30/2455 DD/ TD/TT: Assistant Professor Of Dietetics: The [place] [id number] XRay Report Signed Patient: BI [place]ARD MR#: [id number] : 1960 Acct:[id number] Age/Sex: 63 / M ADM Date: 05/27/24 Loc: SURGOUT Attending Dr: Kole Emery D.P.M. Ordering Physician: Kole Emery D.P.M. Date of Service: 05/27/24 Procedure(s): XR elizabeth t RT min 3V Accession Number(s): [id number] cc: Elin Liz; Kole Emery D.P.M. [place] [address] Patient Name: BI HOWARD MRN: [id number] date: 1960 Sex: M [facility]igned [facility] Current Patient Location: Accession/Order Numb er: [id number] Exam Date: 05/27/2024 11:22 Report Date: 05/30/2024 [...] LUNA M.D. 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) Active confirmed Problem Coronary artery disease (43754567) CAD (coronary artery disease) (I25.10) Active confirmed Problem Obstructive sleep apnea syndrome (71867693) ROBYN (obstructive sleep apnea) (G47.33) Active confirmed Problem Diabetic neuropathy (134161418) Diabetic neuropathy (E11.40) Active confirmed Problem Ulcer of left foot (disorder) (769131055) Chronic ulcer of left foot limited to breakdown of skin (L97.521) Active confirmed Problem Chronic obstructive pulmonary disease (15580239) Advanced COPD (J44.9) Active confirmed Problem Decubitus ulcer of left heel, stage II (L89.622) Active confirmed Problem Chronic osteomyelitis of right ankle (9407334877191829 ) Chronic osteomyelitis of right ankle (M86.671) Active confirmed Problem 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 (L97.418) Active confirmed Problem Chronic ulcer of right heel with fat layer exposed (L97.412) Active confirmed Problem Chronic ulcer of left foot with fat layer exposed (L97.522) Active confirmed Encounters Encounter Location Date Provider Diagnosis [facility] [place] [facility] [place] [address] 05/27/2024 Kole Emery [facility]) [address] [address] 05/27/2024 Kole Emery [facility] ([facility]) [address] [address] 07/01/2024 Kole Emery [facility]) [address] [address] 07/12/2024 Kole Emery Plan Of Treatment Pending [...] End Date [place] [address] [place] [address] [id number] Bi Varela Self - patient is the insured 7 [place]ID [place] 2ND INS [address] [facility] [place] [id number] Bi Varela Self - patient is the insured
--- OUTSIDE RECORDS SUMMARY | 2024-12-09 10:42 | XMS_ITS | Clinical Summary ---
Author Organization [facility] Address [address] [place] [address] Care Team Providers Care Book Or Script Editor Name Role Phone Elin Liz MD Primary Care Provider [phone] Allergies Active Allergy Reactions Criticality Noted Date [...] 08/13/2011 Shingrix Vaccine (1 of 2) 08/13/2011 Influenza Vaccine (#1) 2025 RSV Vaccine (1 - 1-dose 75+ series) 2036 Insurance MEDICAID [place] MEDICARE Care Teams Book Or Script Editor Relationship Specialty Start Date End Date Elin Liz MD [address] [place] [address] PCP - General Family Medicine 05/03/13
--- OUTSIDE RECORDS SUMMARY | 2024-12-09 10:42 | XMS_ITS | Encounter Summary ---
Author Organization [facility] Address [address] [facility] [place] [address] Care Team Providers Care Causticiser Name Role Phone Elin Liz MD Primary Care Provider [phone] Elin Liz MD Primary Care Provider [phone] Encounter Details Date Type Department Care Team (Late st Contact Info) Description 04/21/2024 Abstract [facility] [address] [place] [address] Monty Goodrich DPFranky [address] [place], [place] [address] Social History Tobacco Use Types Packs/Day Years [...] Care Team (Late st Contact Info) Description 12/28/2024 1:30 PM EDT Office Visit [facility] [address] [place] [address] Laz Romo MD [address], [address] [place] [address] documented as of this encounter Visit Diagnoses Not on filedocumented in this encounter Care Teams Causticiser Relationship Specialty Start Date End Date Elin Liz MD PCP - General Family Medicine 03/17/24 09/26/24 Elin Liz MD [address] [place] [address] PCP - General Family Medicine 09/27/24 documented as of this encounter
--- OUTSIDE RECORDS SUMMARY | 2024-12-09 10:42 | XMS_ITS | Clinical Summary ---
Author Organization [employer] Address [id number] [address] [place] [address] Care Team Providers Care Paper Tube Grader Name Role Phone Elin Liz MD Primary Care Provider [phone] Allergies Active Allergy Reactions Criticality Noted Date [...] Documents on File Type Date Recorded Patient Certified Alcohol Counselor Expl anation Durable Power of Leak Patcher * Full Code (Latest Code Status on File) Date Activated Date Inactivated Comments 10/13/2018 11:30 PM 10/18/2018 7:45 PM Care Teams Paper Tube Grader Relationship Specialty Start Date End Date Elin Liz MD [address] [place], [place] [phone] PCP - General 09/30/18
--- OUTSIDE RECORDS SUMMARY | 2024-12-09 10:42 | XMS_ITS | Clinical Summary ---
Author Organization [facility] Address [address] [facility] [place] [address] Care Team Providers Care Psychopaedic Nurse Name Role Phone Elin Liz MD Primary Care Provider [phone] Allergies Active Allergy Reactions Criticality Noted Date Comments Metoclopramide Other,Rash,Unknown Low 09/15/2016 Other Reaction(s): Twitching Peg 1072-Tuq-Mxzct-Nacl-Nasu lf Rash,Unknown Low 12/19/2015 Promethazine Other,Rash,Unknown, Wheezing [...] 2 diabetes mellitus with hyperglycemia, unspecified whether oil heaterman insulin use (HCC) Inject 1 mg under the skin 1 (one) time per week 9 mL 1 5 025 Active Resolved Problems Problem Noted Date Diagnosed Date Resolved Date COPD without exacerbation 02/05/2023 Acute systolic heart failure 12/01/2022 02/05/2023 Acute on chronic combined sy stolic and diastolic congestive heart failure 11/10/202202/05 Overview (02/05/2023): Last Assessment & Plan: [facility] III Continue GDMT- ASA, bumex, entresto coreg, [...] 09/10/2022 02/05/2023 Atherosclerotic heart diseas e of [place] coronary artery with unspecified angina pectoris 12/19/2015 02/05/2023 Carotid artery occlusion 06/22/2013 Encounters Date Type Department Care Team Description 10/10/2024 Travel from Last 3 Months Immunizations Immunization Administration [...] Description 12/28/2024 1:30 PM EDT Office Visit [facility] [place] [facility] [address] [place] [address] Laz Romo MD [address] [place] [address] Health Maintenance Due Date Last Done Comments CT Colonography 1960 Colonoscopy 1960 Colorectal Cancer Screening 1960 FIT-DNA 1960 FIT 1960 FOBT 1960 Sigmoidoscopy 1960 Influenza Vaccine (#1) 2025 , 02/19/2023, 02/08/2022, Additional history exists Insurance MEDICARE [place]ICAID [place] Care Teams Psychopaedic Nurse Relationship Specialty Start Date End Date Elin Liz MD [address] [place] [address] PCP - General Family Medicine 09/27/24
--- OUTSIDE RECORDS SUMMARY | 2024-12-09 10:42 | XMS_ITS | Encounter Summary ---
Author Organization [facility] Address [address] [facility] [place] [address] Care Team Providers Care Cathode Ray Tube Salvage Processor Name Role Phone Elin Liz MD Primary Care Provider [phone] Laz Romo MD Primary Care Provider [phone] Elin Liz MD Primary Care Provider [phone] Elin Liz MD Primary Care Provider [phone] Encounter Details Date Type Department Care Team (Late st Contact Info) Description 01/08/2023 Abstract [facility] [address] [facility] [address] [place] [id number] Santos Tan, DPM FACFAS [address] [place] [address] Social History Tobacco Use Types Packs/Day Years [...] 12/28/2024 1:30 PM EDT Office Visit [facility] [address] [place] [address] Laz Romo MD [address] [place] [address] documented as of this encounter Visit Diagnoses Not on filedocumented in this encounter Care Teams Cathode Ray Tube Salvage Processor Relationship Specialty Start Date End Date Elin Liz MD PCP - General Family Medicine 01/06/23 03/06/24 Laz Romo MD [address] [place] [address] PCP - General Endocrinology 03/07/24 03/16/24 Elin Liz MD PCP - General Family Medicine 03/17/24 09/26/24 Elin Liz MD [address] [place] [id number] PCP - General Family Medicine 09/27/24 documented as of this encounter
--- OUTSIDE RECORDS SUMMARY | 2024-12-09 10:43 | XMS_ITS | Patient Health Record ---
Author Organization [facility] ([place], [place]) Servic es Address [address] [place] [address] Support Name Relationship Address Phone ROMERO CROCKETT Emergency Contact [address] [place] [address] MATT HOWARD Guarantor Unknown [phone] Allergies Allergen (clinical drug ingredient) Drug/Non Drug [...] TWICE A DAY WITH 125MG TO TOTAL 625MG; Duration: 28 Active Tamsulosin HCl 0.4 MG 1 capsule Orally t wice a day (bid) Active Divalproex Sodium 125 mg TAKE ONE TABLET BY MOUTH TWICE A DAY WITH 500MG TABLETS; Duration: 28 Active Atorvastatin Calcium 80 MG 1 [...] tablet in the evening Orally Once a day; Duration: 30 day(s) Active metFORMIN HCl 500 MG 1 tablet Orally twi ce a day (bid) Active Zolpidem Tartrate 10 MG 1 tablet Orally Once a day Active Potassium Chloride ER 10 MEQ 1 tablet Orally Twice a day Active Nitroglycerin 0.4 MG 1 tablet Sublingual as needed (prn) Active Latuda 60 mg TAKE ONE TABLET BY MOUTH DAILY IN THE EVENING WITH FOOD; Duration: 13 Not-Taking oxyCODONE HCl 5 MG 1 [...] Body mass index 40+ - morbidly obese (573082707) BMI 40.0-44.9, adult (Z68.41) Active confirmed Problem Obese class II (256020462861 105) BMI 39.0-39.9,adult (Z68.39) Active confirmed Problem Bipolar depression (F31.9) Active confirmed Plan Of Treatment No Information Insurance Providers Payer Name Payer Address Payer Phone Subscriber Number Group Number Insured Name Patient Relationship to Insured Coverage Start Date Coverage End Date MEDICARE CGS [address] [place] [address] [id number] MATT REYES Self - patient is the insured 2 [employer] [place] [address] [place] [address] [phone] [id number] MATT REYES Self - patient is the [...]
== END 2024-12-09 10:37 | disposition home or self-care (01) ==
LOC: WC 10:37
PROVIDERS: PCP Internal Medicine Interventional Cardiology; Visit Provider Physician Assistant
DX: E11.621 Type 2 diabetes mellitus with foot ulcer (principal); L97.412 Non-pressure chronic ulcer of right heel and midfoot with fat layer exposed; I87.312 Chronic venous hypertension (idiopathic) with ulcer of left lower extremity; L97.822 Non-pressure chronic ulcer of other part of left lower leg with fat layer exposed
CPT/HCPCS: A6213; G0463

== ENCOUNTER 2024-12-30 07:54 | Outpatient (RCR) | payer MEDICARE, MEDICAID, SELFPAY ==
[2024-12-12 11:45] VITALS: BP 149/83; PULSE 92; TEMP 36.8; O2SAT 94
[2024-12-12 12:09] VITALS: BP 149/89
[2024-12-12] MEDS: BUMETANIDE 1 MG/4 ML VIAL 3 MG IVP (12:09)
[2024-12-12 12:30] LABS: Anion Gap 9.9; Blood Urea Nitrogen 31.0 mg/dL (7.0-18.0); Calcium 9.0 mg/dL (8.5-10.1); Carbon Dioxide 34.2 mmol/L (21.0-32.0); Chloride 98 mmol/L (98-107); Estimated GFR (African America >60 (>=60 mL/min/1.73m^2); Estimated GFR (Non-African Ame >60 (>=60 mL/min/1.73m^2); Glucose 93 mg/dL (74-106); Potassium 3.1 mmol/L (3.5-5.1); Sodium 139 mmol/L (136-145)
[2024-12-12 12:40] VITALS: BP 134/71
--- NOTE | 2024-12-12 12:57 | PC.NURSE ---
1200 - Removed old mid line dressing. Removed old stat lock. Cleansed area with chlorprep wand , applied skin prep and applied new stat lock then chg dressing and tegaderm. Flushed mid line attempted to pull blood off for lab draw but mid line would not pull blood off. Flushed just fine changed caps and replaced green cap. Patient tolerated procedure well. Peripherally meliton BMP.
[2024-12-16 12:00] VITALS: BP 134/72; PULSE 91; TEMP 36.3; O2SAT 94
[2024-12-16] MEDS: BUMETANIDE 1 MG/4 ML VIAL 3 MG IVP (12:15)
[2024-12-16 12:31] LABS: Anion Gap 10.2; Blood Urea Nitrogen 21.0 mg/dL (7.0-18.0); Calcium 9.1 mg/dL (8.5-10.1); Carbon Dioxide 31.6 mmol/L (21.0-32.0); Chloride 103 mmol/L (98-107); Estimated GFR (African America >60 (>=60 mL/min/1.73m^2); Estimated GFR (Non-African Ame >60 (>=60 mL/min/1.73m^2); Glucose 147 mg/dL (74-106); Potassium 3.8 mmol/L (3.5-5.1); Sodium 141 mmol/L (136-145)
[2024-12-23 12:07] VITALS: BP 126/66; PULSE 90; TEMP 36.8; O2SAT 95
[2024-12-23] MEDS: BUMETANIDE 1 MG/4 ML VIAL 3 MG IVP (12:25)
--- NOTE | 2024-12-23 12:44 | PC.NURSE ---
Addendum entered by Jin Rajput RN 12/23/24 12:49: this was performed at 1220 not as documented 1245. Original Note: 1245 left upper arm mid line flushes easily, unable to draw blood, catheter retracted 2 cm excellent blood return noted. labs drawn sent to laboratory line flushed, bumex 3 mg IVP. old dressing and stat lock changed, site clear free of reddness edema or drainage. new stat lock and CHG tegaderm applied, cap changed, tolerated well. released ambulatory
[2024-12-23 12:54] LABS: Anion Gap 6.3; Blood Urea Nitrogen 19.0 mg/dL (7.0-18.0); Calcium 8.7 mg/dL (8.5-10.1); Carbon Dioxide 34.2 mmol/L (21.0-32.0); Chloride 101 mmol/L (98-107); Estimated GFR (African America >60 (>=60 mL/min/1.73m^2); Estimated GFR (Non-African Ame >60 (>=60 mL/min/1.73m^2); Glucose 132 mg/dL (74-106); Potassium 3.5 mmol/L (3.5-5.1); Sodium 138 mmol/L (136-145)
[2024-12-28 11:22] VITALS: BP 158/77; PULSE 83; TEMP 36.4; O2SAT 98
[2024-12-28] MEDS: BUMETANIDE 1 MG/4 ML VIAL 3 MG IVP (11:45)
--- NOTE | 2024-12-28 11:54 | PC.NURSE ---
mid line left upper arm unable to obtain blood return, flushes easily. dressing removed, noted clear drainage around catheter. dc'd catheter. 11 cm length intact. 2x2 and tegaderm applied. tolerated well. #24 inserted rt upper arm, able to draw labs and give IV bumex and site dc'd. tolerated well.
--- NOTE | 2024-12-28 11:59 | PC.NURSE ---
1215 tolerated iv bumex without issues. released ambulatory.
--- NOTE | 2024-12-28 12:00 | PC.NURSE ---
11[address] [facility] notified of needing order for PICC line or port placement if they want to continue with IV bumex due to very poor venous access. They will notify the provider when in office tomorrow. Patient aware of this and will follow up on this
[2024-12-28 12:20] LABS: Anion Gap 6.1; Blood Urea Nitrogen 20.0 mg/dL (7.0-18.0); Calcium 8.4 mg/dL (8.5-10.1); Carbon Dioxide 34.3 mmol/L (21.0-32.0); Chloride 105 mmol/L (98-107); Estimated GFR (African America >60 (>=60 mL/min/1.73m^2); Estimated GFR (Non-African Ame >60 (>=60 mL/min/1.73m^2); Glucose 107 mg/dL (74-106); Magnesium 1.8 mg/dL (1.8-2.4); Potassium 3.4 mmol/L (3.5-5.1); Sodium 142 mmol/L (136-145)
== END 2025-01-08 23:59 | disposition home or self-care (01) ==
LOC: INF 07:54
PROVIDERS: PCP Internal Medicine Interventional Cardiology; Visit Provider Internal Medicine Interventional Cardiology
DX: R60.9 Edema, unspecified (principal); R25.2 Cramp and spasm; I50.9 Heart failure, unspecified
CPT/HCPCS: 36415; 36592; 80048; 82330; 83735; 96374

== ENCOUNTER 2025-01-30 12:00 | Outpatient (RCR) | payer MEDICARE, MEDICAID, SELFPAY ==
[2025-01-18 13:10] VITALS: BP 196/95; PULSE 90; TEMP 36.4; O2SAT 96
[2025-01-18] MEDS: BUMETANIDE 1 MG/4 ML VIAL 3 MG IVP (13:33)
[2025-01-27 12:00] VITALS: BP 146/71; PULSE 98; TEMP 36.2; O2SAT 97
[2025-01-27] MEDS: BUMETANIDE 1 MG/4 ML VIAL 3 MG IVP (12:11)
[2025-01-30 12:04] VITALS: BP 154/87; PULSE 92; TEMP 36.6; O2SAT 96
[2025-01-30] MEDS: BUMETANIDE 1 MG/4 ML VIAL 3 MG IVP (12:09)
== END 2025-02-07 23:59 | disposition home or self-care (01) ==
LOC: INF 12:00
PROVIDERS: PCP Internal Medicine Interventional Cardiology; Visit Provider Internal Medicine Interventional Cardiology
DX: I50.9 Heart failure, unspecified (principal)
CPT/HCPCS: 96374

== ENCOUNTER 2025-02-07 11:02 | Outpatient (OUT) | payer MEDICARE, MEDICAID, SELFPAY | END 2025-02-07 11:03 | disposition home or self-care (01) | LOC: WC 11:03 | PROVIDERS: PCP Internal Medicine Interventional Cardiology; Visit Provider Physician Assistant | DX: E11.621 Type 2 diabetes mellitus with foot ulcer (principal); L97.412 Non-pressure chronic ulcer of right heel and midfoot with fat layer exposed; I87.312 Chronic venous hypertension (idiopathic) with ulcer of left lower extremity; L97.822 Non-pressure chronic ulcer of other part of left lower leg with fat layer exposed | CPT/HCPCS: 11043 ==

== ENCOUNTER 2025-02-15 12:56 | Outpatient (RCR) | payer MEDICARE, MEDICAID, SELFPAY ==
[2025-02-15] MEDS: BUMETANIDE 1 MG/4 ML VIAL 3 MG IVP (13:17)
[2025-02-15 13:18] VITALS: BP 152/76; PULSE 88; TEMP 36.6; O2SAT 95
--- NOTE | 2025-02-15 13:23 | PC.NURSE ---
rt upper arm picc intact site clear external length 1 cm. excellent blood return, new stat lock and CHG dressing applied. Green CHG caps applied. tolerated well. IV bumex 3 mg ivp over 5 mins. tolerated well.
== END 2025-03-10 23:59 | disposition home or self-care (01) ==
LOC: INF 12:56
PROVIDERS: PCP Internal Medicine Interventional Cardiology; Visit Provider Internal Medicine Interventional Cardiology
DX: I50.9 Heart failure, unspecified (principal)
CPT/HCPCS: 96374

== ENCOUNTER 2025-03-01 10:37 | Outpatient (OUT) | payer MEDICARE, MEDICAID, SELFPAY ==
--- OUTSIDE RECORDS SUMMARY | 2025-03-01 10:41 | XMS_ITS | Clinical Summary ---
Author Organization [facility] Address [address] [facility] [place] [address] Care Team Providers Care Palletizer Operator Name Role Phone Elin Liz MD Primary Care Provider [phone] Allergies Active AllergyReactionsCriticalityNoted DateCommentsMetoclopramideOther,Rash, NoircwpZji74/08/2017 Other Reaction(s): Twitching Peg 0160-Anx-Pkdvb-Nacl-NasulfRash,NajbhwlEul33/10/2016PromethazineOther,Rash, Unknown,BfushnbmPwh83/31/2013 Other Reaction(s): Shortness of Breath Sulfa AntibioticsOther,Rash,Unknown,GimqtprtAzf86/31/2013 Sulfamethoxazole-Hywhaahkummj24/10/2016 Medications MedicationSigDispense QuantityRefillsLast FilledStart DateEnd DateStatus Eliquis 5 MG tablet Active Aspirin Low Dose 81 MG EC tablet Active atorvastatin (Lipitor) 80 MG tablet 1 (one) time each day at the same timeActive bumetanide (Bumex) 1 MG tablet Take 3 mg by mouth04/14/2022ctive busPIRone (Buspar) 10 MG tablet Active carvedilol (Coreg) 3.125 MG tablet every 12 (twelve) hours.04/14/2022ctive Quviviq 25 MG tablet Active diclofenac sodium 1 % gel 05/20/2022ctive diphenoxylate-atropine (Lomotil) 2.5-0.025 MG tablet 02/26/2022ctive divalproex (Depakote) 125 MG EC tablet Active divalproex (Depakote) 500 MG EC tablet Active gabapentin (Neurontin) 800 MG tablet Take 800 mg by mouth in the morning and 800 mg in the evening and 800 mg before bedtime.Active Lantus SoloStar 100 UNIT/ML pen Active isosorbide mononitrate ER (Imdur) 30 MG 24 hr tablet 1 (one) time each day at the same timeActive linezolid (Zyvox) 600 MG tablet Take 600 mg by mouth every 12 (twelve) hours01/15/2023ctive midodrine (Proamatine) 5 MG tablet Active potassium chloride CR (Klor-Con) 10 MEQ ER tablet every 12 (twelve) hoursActive potassium chloride CR (Klor-Con M20) 20 MEQ ER tablet Active Entresto 24-26 MG tablet every 12 (twelve) hours04/14/2022ctive spironolactone (Aldactone) 50 MG tablet Take 50 mg by mouth in the morning.Active tamsulosin (Flomax) 0.4 MG 24 hr capsule Take 0.4 mg by mouth in the morning and 0.4 mg before bedtime.Active clonazePAM (KlonoPIN) 1 MG tablet Take 1 tablet by mouth at czungzl4410/14/2023ctive insulin regular (HumuLIN R U-500) 500 UNIT/ML CONCENTRATED injection 11/19/2023ctive moxifloxacin (Vigamox) 0.5 % ophthalmic solution Administer 1 drop into both eyes in the morning and 1 drop at noon and 1 drop in the evening and 1 drop before bedtime.12/29/2023ctive nitroglycerin (Nitrostat) 0.[address] 1 tablet under the tongue every 5 (five) minutes if needed FOR CHEST PAIN FOR 3 DOSES ONLY. IF NO RELIEF, CALL 36629/ctive ondansetron ODT (Zofran-ODT) 8 MG disintegrating tablet Take 1 tablet by mouth every 12 (twelve) hours if needed for vomiting or nausea 03/04/2024ctive Xtampza ER 18 MG 12 hr abuse-deterrent capsule Take 18 mg by mouth in the morning and 18 mg before bedtime.03/28/2024ctive valACYclovir (Valtrex) 1 g tablet Take 1,000 mg by mouth in the morning and 1,000 mg in the evening.12/29/2023 Active terazosin (Hytrin) 5 MG capsule Take 1 capsule by mouth at bedtimeActive losartan (Cozaar) 100 MG tablet Take 1 tablet by mouth DailyActive tiotropium (Spiriva) [address] 1 capsule into inhaler and inhale in the morning.Active metFORMIN (Glucophage) 500 MG tablet Indications:Type 2 diabetes mellitus with hyperglycemia, unspecified whether exterminator insulin use (HCC)Take 1 tablet (500 mg) by mouth in the morning and 1 tablet (500 mg) in the evening. Take with meals. 180 tablet 5Active semaglutide (Ozempic, 1 MG/DOSE,) 2 MG/1.5ML solution pen-injector Indications:Type 2 diabetes mellitus with hyperglycemia, unspecified whether retirement insulin use (HCC)Inject 1 mg under the skin 1 (one) time per week 9 mL /6Active dapagliflozin (Farxiga) 10 MG Indications:Type 2 diabetes mellitus with hyperglycemia, unspecified whether exterminator insulin use (HCC)Take 1 tablet (10 mg) by mouth Daily 90 tablet /6Active Resolved Problems ProblemNoted DateDiagnosed DateResolved DateCOPD without rdepugiqrmyo50/28/2023 02/05/2023cute systolic heart gigyabx88cute on chronic combined systolic and diastolic congestive heart rtajmcm29 Overview (02/05/2023): Last Assessment & Plan: [facility] Continue GDMT- ASA, bumex, entresto coreg, farxiga, and aldatone Diuretic therapy- bumex 3 mg po bidand will send order for bumex 2 mg IV q Thu-Thu and Thursday with weekly BMP q Thu. Monitor daily weights, I&O, fluid restriction 1.5-2L/day, renal function and electrolytes- please maintain K+>4 and Mg > 2 Bipolar honwxksq11/VT (deep venous thrombosis)09/10/2022 02/05/2023therosclerotic heart disease of [place] coronary artery with unspecified angina xofxhens03/10/688223/28/2023Carotid artery occlusion Encounters DateTypeDepartmentCare MtdwZjiovrdstju51/13/6980Bnswki80/02/2025bstract [facility] [address] [place] [address] Ramiro Tan, DPFranky FACFAS 12/28/2024 1:30 PM EDTOffice Visit [facility] [place] [facility] [address] [place] [address] Laz Romo MD Type 2 diabetes mellitus with hyperglycemia, unspecified whether retirement insulin use (HCC) (Primary Dx); Vitamin D deficiency; Hyperlipemia, mixed ; Encounter for dietary consultation; H/O gastric bypass; Class 2 severe obesity due to excess calories with serious comorbidity and body mass index (BMI) of36.0 to 36.9 in adult ([facility]-HCC)12/28/2024amboo flowsheet [facility] [place] [facility] [address] [place] [address] Laz Romo MD 12/23/2024Refill [facility] [place] [facility] [address] [place] [address] Laz Romo MD Type 2 diabetes mellitus with hyperglycemia, unspecified whether exterminator insulin use (HCC)from Last 3 Months Immunizations ImmunizationAdministration DatesNext DueABRYSVO - Respiratory syncytial virus (RSV), vaccine, bivalent, protein subunit RSV prefusion F, diluent reconstituted, 0.5 mL, PF02/19/2023Influenza, Bsmjmkqtkmf66/01/2022,03/06/2020, 02/08/2018Influenza, injectable, estdoxkptiar27/04/2019,02/19/2017,02/08/2015 Influenza, injectable, quadrivalent, preservative free02/29/2024,02/19/2023, 03/05/2021,04/13/2019,03/11/2016Pneumococcal Conjugate PCV 13105/11/2015 Pneumococcal Conjugate PCV 3Pneumococcal Polysaccharide PPSV23 05/11/20110966CHGE-NPL-6 (COVID-19) vaccine, mRNA, spike protein, LNP, PF, 50 mcg/0.5 mL02/29/2024,02/19/2023Td (adult), 5 Lf tetanus toxoid, preservative free, dddmenye93/08/2014Zoster, Qidixulltcl77/23/2023Zoster, live02/08/2022 Family History Medical HistoryRelationNameCommentsDiabetesFatherHypertensionFatherStrokeFather DiabetesMotherHypertensionMotherStrokeMotherRelationNameStatusCommentsFather DeceasedMotherDeceased Social History Tobacco UseTypesPacks/DayYears UsedDateSmoking Tobacco: WisrdcXeeeutbmtu557 Tobacco Cessation:Counseling Given: Not Answered Comments:Quit 07/2008 Alcohol UseStandard Drinks/WeekCommentsNever0 (1 standard drink = 0.6 oz pure alcohol)Sex and Gender InformationValueDate RecordedSex Assigned at BirthNot on fileLegal IsuTtmr5907/23/2022 7:59 PM EDTGender IdentityNot on fileSexual UatoixxuajzGeb34/29/2023 2:37 PM EDT Last Filed Vital Signs Vital SignReadingTime TakenCommentsBlood Dviimcfd018/8208 1:22 PM EDT Oykmi709312/28/2024 1:22 PM EDTTemperature--Respiratory Uooi1484 1:22 PM EDTOxygen Qxzocswvxj96%12/28/2024 1:22 PM EDTInhaled Oxygen Concentration-- Ekghmn633 kg (265 lb)12/28/2024 1:22 PM NNZAarkut689.3 cm (5' 11 )12/28/2024 1:22 PM EDTBody Mass Index36.9608 1:22 PM EDT Plan of Treatment DateTypeDepartmentCare Team (Latest Contact Info)Koxvuefwazz47/23/2026 2:00 PM ESTOffice Visit [facility] [place] [facility] [address] [place] [address] Laz Romo MD [address] [place] [address] Health MaintenanceDue DateLast DoneCommentsCT Wyhmmkqybotf80/04/1962Colonoscopy 2Colorectal Cancer Dozvbnbrw03/04/1962FIT-DNA1961FIT1961 FOBT08/12/19618288Cwugrpiyiakis39/04/1962Influenza Vaccine (#1), 02/19/2023, 02/08/2022, Additional history exists Procedures Procedure NamePriorityDate/TimeAssociated DiagnosisCommentsPOCT GLYCOSYLATED HEMOGLOBIN (HGB A1C)Jxllehb6112/28/2024 1:24 PM EDT Type 2 diabetes mellitus with hyperglycemia, unspecified whether exterminator insulin use (HCC) POCT DNLPHYZFqlydew59/20/2025 1:24 PM EDT Type 2 diabetes mellitus with hyperglycemia, unspecified whether exterminator insulin use (HCC) from Last 3 Months Results * POCT glycosylated hemoglobin (Hb A1C) docked device (12/28/2024 1:24 PM EDT) ComponentValueRef RangeTest MethodAnalysis TimePerformed AtPathologist SignatureHemoglobin A1C5.8Specimen (Source)Anatomical Location / Laterality Collection Method / VolumeCollection TimeReceived TimeBloodVenous blood specimen / Pbcdzws9612/28/2024 1:24 PM EDT Narrative Authorizing ProviderResult TypeResult Statussheri Romo MDPOINT OF CARE TEST ENTER/EDIT ORDERABLESFinal Result * POCT glucose manually resulted (12/28/2024 1:24 PM EDT)ComponentValueRef Range Test MethodAnalysis TimePerformed AtPathologist SignatureGlucose Blood, TSU377 mg/dLSpecimen (Source)Anatomical Location / LateralityCollection Method / VolumeCollection TimeReceived TimeBloodCapillary blood specimen / Unknown 12/28/2024 1:24 PM EDT Narrative Authorizing ProviderResult TypeResult Statussheri Romo MDPOINT OF CARE TEST ENTER/EDIT ORDERABLESFinal Result from Last 3 Months Insurance Care Teams Team MemberRelationshipSpecialtyStart DateEnd Elin Liz MD [address] [facility] [place] [id number] PCP - GeneralFamily Medicine09/27/24
--- OUTSIDE RECORDS SUMMARY | 2025-03-01 10:41 | XMS_ITS | Encounter Summary ---
Author Organization [facility] Address [address] [place] [address] Care Team Providers Care Domestic Laundry Worker Name Role Phone Elin Liz MD Primary Care Provider [phone] Encounter Details DateTypeDepartmentCare Team (Latest Contact Info)Cfwqbrqulqh39/13/2025Travel Social History Tobacco UseTypesPacks/DayYears UsedDateSmoking Tobacco: LqflgcCfpcfzecqe564 Comments:Quit 07/2008 Alcohol UseStandard Drinks/WeekCommentsNever0 (1 standard drink = 0.6 oz pure alcohol)Sex and Gender InformationValueDate RecordedSex Assigned at BirthNot on fileLegal YsoCrcj6707/23/2022 7:59 PM EDTGender IdentityNot on fileSexual HoisozqexxqVmb26/29/2023 2:37 PM EDTdocumented as of this encounter Plan of Treatment DateTypeDepartmentCare Team (Latest Contact Info)Fspodgcflcs33/23/2026 2:00 PM ESTOffice Visit [facility] [place] [facility] [address] [place] [address] Laz Romo MD [address] [place] [address] documented as of this encounter Visit Diagnoses Not on filedocumented in this encounter Care Teams Team MemberRelationshipSpecialtyStart DateEnd Date Elin Liz MD [address] [place] [address] PCP - GeneralFamily Medicine09/27/24documented as of this encounter
--- OUTSIDE RECORDS SUMMARY | 2025-03-01 10:41 | XMS_ITS | Clinical Summary ---
Author Organization [facility] Address [id number] [address] [place] [address] Care Team Providers Care Certified Prosthetist Vice President Name Role Phone Elin Liz MD Primary Care Provider [phone] Allergies Active AllergyReactionsCriticalityNoted DateCommentsFood Allergy FormulaWheezing 03/17/2016 Go-lightly drink DrungvsivntdUtaplwxz66/07/2016Metoclopramide Hcl11/19/2017Sulfa (Sulfonamide Antibiotics)Wyjenizc79/07/2016 Medications MedicationSigDispense QuantityRefillsLast FilledStart DateEnd DateStatus zolpidem (AMBIEN) 10 mg tablet Take 10 mg by mouth once daily at bedtime.02/09/2016Active ammonium lactate (LAC-HYDRIN) 12 % lotion Apply topically.Active tiotropium (SPIRIVA WITH HANDIHALER) 18 mcg per inhalation capsule Place 18 mcg into inhaler and inhale.Active fluticasone (FLONASE) 50 mcg/actuation nasal spray Administer 1 spray into each nostril as needed. 03/08/2016Active carvedilol (COREG) 25 mg tablet 2 (two) times a day.03/08/2016Active NEXIUM 40 mg capsule Take by mouth 2 (two) times a day.01/08/2016Active spironolactone (ALDACTONE) 25 mg tablet Take 25 mg by mouth daily. Active divalproex (DEPAKOTE) 500 mg EC tablet Take 1,000 mg by mouth once daily at bedtime.Active losartan (COZAAR) 100 mg tablet Take 100 mg by mouth.Active atorvastatin (LIPITOR) 80 mg tablet Take 80 mg by mouth once daily at bedtime.03/08/2016Active diazePAM (VALIUM) 2 mg tablet Take 10 mg by mouth once daily at bedtime.Active metOLazone (ZAROXOLYN) 5 mg tablet Take 5 mg by mouth daily.01/08/2016Active oxyCODONE (ROXICODONE) 30 mg immediate release tablet 30 mg every 4 (four) hours as needed. 03/09/2016Active metFORMIN (GLUCOPHAGE) 1000 mg tablet Take by mouth 2 (two) times a day.02/23/2016Active isosorbide mononitrate (IMDUR) 30 mg 24 hr tablet Take by mouth daily.03/08/2016Active baclofen (LIORESAL) 10 mg tablet Take 10 mg by mouth 3 (three) times a day.Active doxycycline (VIBRA-TABS) 100 mg tablet Take 100 mg by mouth 2 (two) times a day.Active finasteride (PROSCAR) 5 mg tablet Take 5 mg by mouth daily. Active magnesium oxide (MAG-OX) 400 mg tablet Take 2 tablets by mouth 2 (two) times a day.Active mirtazapine (REMERON) 15 mg tablet Take 45 mg by mouth nightly. Active primidone (MYSOLINE) 50 mg tablet Take 50 mg by mouth nightly. Active terazosin (HYTRIN) 5 mg capsule Take 5 mg by mouth daily.Active ciclopirox olamine (CICLOPIROX TOP) Apply 1 % topically daily. Active OXcarbazepine (TRILEPTAL) 150 mg tablet Take 150 mg by mouth 2 (two) times a day.Active potassium chloride (KAYCIEL) 20 mEq/15 mL solution Take by mouth daily.Active pyridostigmine (MESTINON) 30 mg tablet Take 60 mg by mouth.Active OXYCONTIN 40 mg 12 hr tablet TAKE 1 TABLET EVERY 12 HOURS FOR 30 HJHL514Active cholecalciferol, vitamin D3, 50,000 units tablet Indications:Intestinal malabsorption, unspecified type,Malnutrition, unspecified type,Vitamin D deficiencyTake 1 tablet (50,000 Units total) by mouth 2 (two) times a week. 24 tablet 10/21/2018Active Additional Information Patient taking differently:50,000 Units oral 2 times weekly,Mondays and THURSDAY, Informant: Self, Reported on 01/11/2019 ursodiol (ACTIGALL) 250 mg tablet Indications:Rapid weight lossTake 1 tablet (250 mg total) by mouth 2 (two) times a day. 60 tablet Active vit 10-iron fum-folic 65-1 mg tablet Indications:Intestinal malabsorption, unspecified type,Malnutrition, unspecified typeTake 1 tablet by mouth daily. 90 tablet Active bumetanide (BUMEX) 2 mg tablet bumetanide 2 mg tablet 1 tab (2mg) AM and prn flexible 1 tab (1mg) PMActive semaglutide (OZEMPIC) 0.25 mg or 0.5 mg(2 mg/1.5 mL) pen injector Ozempic 0.25 mg or 0.5 mg (2 mg/1.5 mL) subcutaneous pen injectorActive traZODone (DESYREL) 50 mg tablet trazodone 50 mg tablet Take 1 tablet twice a day by oral route for 30 days.Active vortioxetine (TRINTELLIX) 10 mg tablet daily.Active gabapentin (NEURONTIN) 800 mg tablet Take 800 mg by mouth 3 (three) times a day.Active ondansetron (ZOFRAN) 4 mg tablet Take 4 mg by mouth every 8 (eight) hours as needed.Active nitroglycerin (NITROSTAT) 0.[address] 0.4 mg under the tongue every 5 (five) minutes as needed.Active Active Problems ProblemNoted DateDiagnosed DateOpen wound of abdominal wall12/30/2018Morbid obesity with BMI of 45.0-49.9, adult10/13/2018History of DVT (deep vein thrombosis)10/05/2018History of pulmonary gdmxziaj00/28/2019S/P IVC filter 10/05/2018Diastasis recti09/30/2018BMI 50.0-59.9, adult06/16/2018Chronic osteomyelitis of ogygtl1412/05/2016Sacral ulcer03/17/2016CHF (congestive heart failure)04/10/2014Fatty liver04/10/20149228Lzrudrqdssaok71/01/2014GERD (gastroesophageal reflux disease)04/10/2014OA (osteoarthritis)04/10/2014OSA (obstructive sleep apnea)04/10/2014Spinal tzshytyt28/01/2014Renal mass04/10/2014 Overview (09/30/2018): BENIGN Morbid bkbjdim5810/19/2013Coronary xbrafbmumwwsrmv38/02/2012Generalized rooawdsrmpksjo24/06/0742Vvmmpgemnouowd26/30/2012Essential lnvucggvyoxl47/30/2012 Old myocardial huaauyzmml26/30/2012 Immunizations ImmunizationAdministration DatesNext DueInfluenza, Injectable, Quadrivalent 02/19/2017Influenza, Injectable, quadrivalent (PF)03/11/2016Influenza, Keiwtjvqdqa96/01/2018Pneumococcal Conjugate 13-Wxcjpp9603/11/2016 Family History Medical HistoryRelationNameCommentsCancerBrotherCancerFatherStrokeFatherdied in his 70sCancerMotherStomach cancerMotherStrokeMotherdied at age 43Anesthesia problemsNeg HxBlood ClotsNeg HxRelationNameStatusCommentsBrotherDeceasedFather (Age 72)MotherDeceased (Age 43) Social History Tobacco UseTypesPacks/DayYears UsedDateSmoking Tobacco: FormerCigarettesQuit: 06/17/2000Smokeless Tobacco: Never Tobacco Cessation:Counseling Given: Yes Alcohol UseStandard Drinks/WeekCommentsNo0 (1 standard drink = 0.6 oz pure alcohol)ChildcareAnswerDate GcgeekyqOijkryrmhUvlyygn44/05/2019EmploymentAnswer Date FqoawgdhKdhsjjtumrBmulpfb73/05/2019Purpose - LifeAnswerDate RecordedPurpose and direction in aaciLngqxzi09/10/2021Sex and Gender InformationValueDate RecordedSex Assigned at BirthNot on fileLegal VsxNaqr8612/12/2014 12:30 PM EDT Gender IdentityNot on fileSexual OrientationNot on file Last Filed Vital Signs Vital SignReadingTime TakenCommentsBlood Qknojygk709/6409 2:49 PM EDT Ixoud8293 2:49 PM MCLJcrtugqbdpu60.5 ??C (97.7 ??F)01/17/2019 2:49 PM EDTRespiratory Jruy6556 2:49 PM EDTOxygen Dhvfvxxzbj28%01/10/2019 4:18 PM EDTInhaled Oxygen Concentration--Ujullz582.5 kg (301 lb)01/11/2019 12:35 PM WELZqorqu854.3 cm (5' 10.98 )01/11/2019 12:35 PM EDTBody Mass Mbueg367301/11/2019 12:35 PM EDT Plan of Treatment Health MaintenanceDue DateLast DoneCommentsStatin Use: Mdqdbpxhhbrayj94/04/1962 Depression Dsmdquert08/04/1974Tobacco Ndxdwhpnl79/04/1974Adult BMI Screening 08/13/1979DTaP,Tdap and Td Vaccines (1 - Tdap)1980Zoster (Shingles) Vaccine (1 of 2)08/13/2011Influenza Tixxgck08, 02/19/2017, 03/11/2016 Goals GoalPatient Goal TypeAssociated ProblemsRecent ProgressPatient-Stated?Author Home GeneralYesCanales, Chante Carroll RN Note: Evaluation of progress towards goal: Patients goal is to discharge to home with Jin. Medical Devices Not on file Insurance Advance Directives TypeDate RecordedPatient RepresentativeExplanationDurable Power of Certified Legal Investigator * Full Code (Latest Code Status on File) Date ActivatedDate InactivatedComments10/13/2018 11:30 PM10/18/2018 7:45 PM Care Teams Team MemberRelationshipSpecialtyStart DateEnd Date Elin Liz MD [address] [place] [address] [facility] - General09/30/18
--- OUTSIDE RECORDS SUMMARY | 2025-03-01 10:41 | XMS_ITS | Clinical Summary ---
Author Organization [facility] Address [address] [place] [id number] Care Team Providers Care Bevel Polisher Name Role Phone Elin Liz MD Primary Care Provider [phone] Allergies Active AllergyReactionsCriticalityNoted DateCommentsPeg 3350-ElectrolytesRash 09/15/2016Promethazine HclOther: See Cnuigbju42/31/2013Metoclopramide HclOther: See Sdmfrsnc13/08/2017Sulfa (Sulfonamide Antibiotics)Other: See Comments 05/10/2013 Medications MedicationSigDispense QuantityRefillsLast FilledStart DateEnd DateStatus CARVEDILOL ORAL Take by mouth. 18.75 mg. Take one(1) tablet two(2) times daily.Active Aspirin 81 mg tab Take 81 mg by mouth once daily.Active esomeprazole (NEXIUM) 40 mg capsule Take 40 mg by mouth twice daily before meals.Active DIVALPROEX SODIUM (DEPAKOTE ORAL) Take by mouth. 1000 mg. Take one(1) tablet daily.Active spironolactone 25 mg tablet Take 25 mg by mouth once daily.Active gabapentin (NEURONTIN) 600 mg tablet Take 600 mg by mouth once daily.Active clopidogrel (PLAVIX) 75 mg tablet Take 75 mg by mouth once daily.Active losartan (COZAAR) 100 mg tablet Take 100 mg by mouth once daily.Active Ferrous Sulfate 325 mg (65 mg iron) tablet Take 325 mg by mouth three times daily with meals.Active tiotropium (SPIRIVA WITH HANDIHALER) 18 mcg inhalation capsule Inhale 18 mcg as instructed once daily.Active fluticasone-salmeterol (ADVAIR DISKUS) 250-50 mcg/dose dsdv Inhale 1 Puff as instructed twice daily.Active topiramate 100 mg tablet Take 100 mg by mouth twice daily.Active ammonium lactate 12 % lotion Apply to affected area as needed.Active diazepam (VALIUM) 2 mg tablet Take 2 mg by mouth daily at bedtime.Active LACTULOSE ORAL Take by mouth. 15 milliliter every day by mouthActive nitroglycerin sublingual 0.4 mg SL tablet Dissolve 0.4 mg under the tongue every 5 minutes as needed.Active tamsulosin 0.4 mg cp24 Take 0.4 mg by mouth once daily.Active ALBUTEROL INHALATION Inhale as instructed.Active canagliflozin (INVOKANA) 100 mg tab Indications:type 2 diabetes mellitusTake 100 mg by mouth daily before breakfast. Indications: TYPE 2 DIABETES MELLITUSActive insulin glargine (LANTUS SOLOSTAR) 100 unit/mL (3 mL) inpn Indications:diabetes mellitusInject 30 Units subcutaneously daily at bedtime. Indications: DIABETES MELLITUSActive Insulin Syringe-Needle U-100 (BD ULTRAFINE INSULIN) 1 mL 31 x 5/16 syrg Indications:diabetes mellitus1 Each four times daily. Indications: DIABETES MELLITUSActive metFORMIN (GLUCOPHAGE) 1,000 mg tablet Indications:type 2 diabetes mellitusTake 1,000 mg by mouth twice daily with meals. Indications: TYPE 2 DIABETES MELLITUSActive zolpidem (AMBIEN) 10 mg tab Take by mouth at bedtime as needed.Active atorvastatin (LIPITOR) 80 mg tablet Take 80 mg by mouth once daily.Active baclofen (LIORESAL) 10 mg tablet Take 10 mg by mouth three times daily.Active bumetanide (BUMEX) 2 mg tablet Take 2 mg by mouth once daily.Active cyclobenzaprine (FLEXERIL) 10 mg tablet Take 10 mg by mouth three times daily as needed.Active levomilnacipran (FETZIMA) 120 mg Cs24 Take by mouth.Active finasteride (PROSCAR) 5 mg tablet Take 5 mg by mouth once daily.Active FLUTICASONE PROPIONATE (FLONASE NASAL) Use in the nose.Active oxyMORphone (OPANA ER) 40 mg TR12 Take by mouth.Active primidone (MYSOLINE) 50 mg tablet Take 50 mg by mouth four times daily.Active naloxegol (MOVANTIK) 25 mg tablet Take by mouth.Active Active Problems ProblemNoted DateDiagnosed DateObesity, Class III, BMI >= 40 (morbid obesity) E66.01009/15/2016Type II or unspecified type diabetes mellitus without mention of complication, cfnegotmgqkj12/01/2014 Overview (04/10/2014): 2005 Vakjdihzksuvw86/01/2014CHF (congestive heart failure)04/10/2014OSA (obstructive sleep apnea)04/10/20147807Flurwpsww93/01/2014Spinal ysklidtx01/01/2014OA (osteoarthritis)04/10/2014Fatty liver04/10/2014Renal mass04/10/2014 Overview (04/10/2014): BENIGN GERD (gastroesophageal reflux disease)04/10/2014Dyslipidemia associated with type 2 diabetes burulsua99/01/2014 Social History Tobacco UseTypesPacks/DayYears UsedDateSmoking Tobacco: FormerCigarettesQuit: 09/15/2000 Comments:Quit 2000 Alcohol UseStandard Drinks/WeekCommentsNo0 (1 standard drink = 0.6 oz pure alcohol)Sex and Gender InformationValueDate RecordedSex Assigned at BirthNot on fileLegal YkqJzqx96/02/2012 10:06 AM ESTGender IdentityNot on fileSexual OrientationNot on file Last Filed Vital Signs Vital SignReadingTime TakenCommentsBlood Bqyxudda380/75009/15/2016 10:09 AM EDT Cdffa420009/15/2016 10:09 AM GQCNcnevqsfrob49 ??C (98.6 ??F)09/15/2016 10:09 AM EDTRespiratory Cprn370709/15/2016 10:09 AM EDTOxygen Yhrxcljwwr81%09/15/2016 10:09 AM EDTInhaled Oxygen Concentration--Rosxch877.7 kg (330 lb)09/15/2016 10:09 AM QTVUgakrj902.3 cm (5' 11 )09/15/2016 10:09 AM EDTBody Mass Index46.03009/15/2016 10:09 AM EDT Plan of Treatment Health MaintenanceDue DateLast DoneCommentsAnxiety Xqjaypebt39/04/1980Depression Icltthoay66/04/1980HIV Jwbwyxuhe45/04/1980Hepatitis C Pianpilis53/04/1980 DTaP,Tdap,Td Vaccine (1 - Tdap)04/04/1981Lipid Mafvxangc24/04/1997CT Lsnsespjstft98/04/2007Cologuard (FIT-DNA)08/12/20068583Npkqtdhiabl78/04/2007 Colorectal Cancer Kgixniqpo28/04/2007Diabetes Rsjfvgrlo69/04/2007Fecal Occult Blood2006Prostate Cancer Screening Mhlprjpgbz61/04/2007Sigmoidoscopy 2006Pneumococcal Vaccine: 50+ (1 of 1 - PCV)08/13/2011Shingrix Vaccine (1 of 2)08/13/2011Covid-19 Vaccine (1 - 2024- season)2025Influenza Vaccine (#1)2025RSV Vaccine (1 - 1-dose 75+ series)2036 Insurance Care Teams Team MemberRelationshipSpecialtyStart DateEnd Elin Liz MD [address] [place] [id number] PCP - GeneralFamily Idooiqof80/24/13
--- OUTSIDE RECORDS SUMMARY | 2025-03-01 10:41 | XMS_ITS | Clinical Summary ---
Author Organization [facility] Address [address] [place] [address], [address] [place] [address] Care Team Providers Care Devulcanizer Tender Name Role Phone Elin Liz MD Primary Care Provider [phone] Social History Tobacco UseTypesPacks/DayYears UsedDateSmoking Tobacco: Never AssessedSex and Gender InformationValueDate RecordedSex Assigned at BirthNot on fileLegal Sex Male02/01/2014 3:36 PM EDTGender IdentityNot on fileSexual OrientationNot on file Plan of Treatment Not on file Care Teams Team MemberRelationshipSpecialtyStart DateEnd Date Elin Liz MD [facility] - [facility]02/01/15
== END 2025-03-01 10:38 | disposition home or self-care (01) ==
LOC: WC 10:37
PROVIDERS: PCP Internal Medicine Interventional Cardiology; Visit Provider Podiatrist Foot & Ankle Surgery
DX: E11.621 Type 2 diabetes mellitus with foot ulcer (principal); L97.412 Non-pressure chronic ulcer of right heel and midfoot with fat layer exposed
CPT/HCPCS: 11043

== ENCOUNTER 2025-03-22 13:23 | Outpatient (OUT) | payer MEDICARE, MEDICAID, SELFPAY ==
--- OUTSIDE RECORDS SUMMARY | 2025-03-08 09:26 | XMS_ITS | Continuity of Care Document ---
Author Organization [facility] Address [address] [place] [address] Phone Care Team Providers Care Furnace Combination Analyst Name Role Phone Elin Liz MD Primary Care Provider Funmi Barr MD Attending Provider [phone] Ronaldo Arcos MD Attending Provider Elsa Benson CMA Attending Provider Unavaila Elin Mcallister MD Attending Provider Janet Gomze Attending Provider Janet Gomez Referring Provider [phone] Jeb Hernandez MD Attending Provider Care Teams Patient Care Team Team Status: Active Member Role/Relationship Status Dates Elin Liz MD Primary Care Provider Active Visit Care Team Team Status: Inactive Member Role/Relationship Status Dates Elin Liz MD Primary Care Provider Active Start: December 29, 2024 End: December 29Saturnino Ferrer ProviderActiveStart: December 29, 2024 End: December 29, 2024 Visit Care Team Team Status: Active Member Role/Relationship Status Dates Elin Liz MD Primary Care Provider Active Start: January 06, 2025 Saturnino Nguyễn ProviderActiveStart: January 06, 2025 Visit Care Team Team Status: Active Member Role/Relationship Status Dates Elin Liz MD Primary Care Provider Active Start: January 16, 2025 Elsa Benson CMAAttending ProviderActiveStart: January 16, 2025 Visit Care Team Team Status: Inactive Member Role/Relationship Status Dates Elin Liz MD Primary Care Provider Active Start: February 08, 2025 End: February 08, 2025Saturnino March ProviderActiveStart: February 08, 2025 End: February 08, 2025 Visit Care Team Team Status: Active Member Role/Relationship Status Dates Elin Liz MD Primary Care Provider Active Start: March 06, 2025 Ehab Joaquim SawyerhardymorganyAttending ProviderActiveStart: March 06, 2025 Ehab Joaquim ChuyReferring ProviderActiveStart: March 06, 2025 Patient Care Team Team Status: Inactive Member Role/Relationship Status Dates Elin Liz MD Primary Care Provider Active Start: March 08, 2025 End: March 08Saturnino Sharpe ProviderActiveStart: March 08, 2025 End: March 08, 2025 Chief Complaint and Reason for Visit Chief Complaint Admit Date Rheuamtoid Arthritis December 29, 2024 7 :44am Amb Documentation January 16, 2025 1:35pm [facility] Cellulitis and [facility] heart fa ilure February 08, 2025 10:48am ROBYN/6MONTHS March 08, 2025 1 :33pm Reason for Visit Admit Date C. difficile diarrhea February 08, 2025 10:48am Chronic diarrhea February 08, 2025 10 :48am Colon cancer screening February 08, 2025 10:48am Controlled diabetes mellitus with diabetic polyneuropathy, without long-ter February 08, 2025 10:48am Diabetes mellitus with ulcer of lower ex tremity February 08, 2025 10:48am Diabetic neuropathy associat ed with type 2 diabetes mellitus February 08, 2025 10:48am Frequent falls February 08, 2025 10 :48am History of back surgery February 08 10:48am Osteoarthritis of right knee February 10:48am Pressure ulcer, stage 4 February 08 10:48am Insomnia March 08, 2025 1 :33pm Obstructive sleep apnea hypopnea, severe March 08, 2025 1:33pm Restless legs syndrome March 08 1:33pm Reason for Referral Type Reason(s) Provider Provider Contact Information P be[place] Address Start Date Referral to cutter first Encounter for screening for malignant neoplasm of colon Clostridioides difficile diarrhea Chronic ukuirribA61.11 - Encounter for screening for malignant neoplasm of colon,A04.72 - Enterocolitis due to Clostridium difficile, not specified as recurrent,K52.9 - Noninfective gastroenteritis and colitis, unspecifiedFPG GastroenterologyWork Phone: [phone] [facility] [address] [place] [address]24 Allergies, Adverse Reactions, Alerts Allergen Type Severity Reaction Last Updated Verified Status codeine Allergy Unknown Hives February 08, 2025 10:58am Yes Active hydralazine Allergy Unknown Hives February 08, 2025 10:58am Yes Active metoclopramide Allergy Unknown Rash, Comment:twitchin g February 08, 2025 10:58am Yes Active polyethylene glycol Allergy Unknown Rash Octob er 2024 10:58am Yes Active polyethylene glycol 3350 Allergy Unknown Rash February 08, 2025 10:58am Yes Active potassium chloride Allergy Unknown Rash Octobe r 2024 10:58am Yes Active promethazine Allergy Unknown Hives February 08, 2025 10:58am Yes Active sodium Allergy Unknown Rash February 08, 2025 10:58am Yes Active sodium bicarbonate Allergy Unknown Rash Octobe r 2024 10:58am Yes Active sodium chloride Allergy Unknown Rash February 082024 10:58am Yes Active sodium sulfate Allergy Unknown Rash February 10:58am Yes Active Sulfa (Sulfonamide Antibiotics) Allergy Unknown Hives February 08, 2025 10:58am Yes Active Social History Smoking Status Status Start Date End Date Date of Observa tion Never smoked tobacco (finding) July 23, 2024 7:40am Observation Status Observation Response Date of Response Legal Sex Male (finding) [facility] Family History Relationship Condition Age at Onset Recorded Date/T willian brother Diabetes mellitus Unknown fatherDeceasedUnknownHypertensionUnknownHistory of strokeUnknownHeart disease UnknownMalignant neoplasmUnknownDiabetes mellitusUnknownfamily memberDeceased UnknownmotherDeceasedUnknownHypertensionUnknownHistory of strokeUnknownDiabetes mellitusUnknownmotherHistory of strokeUnknownsisterDiabetes mellitusUnknown sisterDiabetes mellitusUnknown Problems Active Problems Problem Diagnosis/Recorded Date Onset Date Stat us Frequent falls February 08, 2025 11:27am Unknown Active Pressure ulcer, stage 4 June 22, 2019 2:59pm Unk nown Active C. 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 August 23, 2020 8:54am Unknown Active Obstructive sleep apnea hypopnea, severe August 02, 2 024 7:04pm Unknown Active Chronic ulcer of right great toe with fat layer exposed August 23, 2020 8:54am Unknown Active Diabetic neuropathy associat ed with type 2 diabetes mellitus March 05, 2024 6:46am Unknown Active Restless legs syndrome October 14, 2023 4:07pm Unknown Active Controlled diabetes mellitus with diabetic polyneuropathy, without long-term current use of insulin August 23, 2020 8:53am Unknown Act william History of back surgery September 01, 2024 11:14am Unkno wn Active Osteoarthritis of right knee July 13, 2024 12:10pm U nknown Active Family history of cerebral aneurysm December 05, 2024 1: 50pm Unknown Active Diabetes mellitus with ulcer of lower extremity July 13, 2024 12:09pm Unknown Active Chronic diarrhea February 08, 2025 11:25am Unknown Active GERD (gastroesophageal reflux disease) December 05, 2024 2:01pm Unknown Active Nausea & vomiting January 07, 2024 12:42pm Unknown Active Abdominal pain January 07, 2024 12:42pm Unknown Active Bone infection of left foot August 23, 2020 8:54am Un known Active Inactive/Resolved Problems Problem Diagnosis/Recorded Date Onset Date Stat us Chest pain with low risk for cardiac etiology July 23, 2024 9:17am Unknown Resolved Occluded PICC line May 01, 2017 10:29pm Unknown Resolved Medications Medication Status Dose Units Route Directions Qty Days Refills S tart Date Stop Date End Date Reason(s) Instructions Adherence Daridorexant (Quviviq) 25 mg tablet Discontinued 25 MG PO Daily at bedtime 30 30 0 September 21, 2023 12:43pm September 21, 2023 12:44pmInsomnia Insomnia, unspecifiedDaridorexant (Quviviq) 25 mg arcwoiIwwbflsmogmq79PLPUQjjnx at iyczupt02946Onl 2023 12:44pmJune 2023 4:09pmInsomnia Insomnia, unspecifiedGabapentin 800 mg tabletDiscontinued0.ROUTE.JIMHJMA116Uow 2023 10:56amAugust 2023 9:40amTAKE ONE TABLET BY MOUTH THREE TIMES A DAYApixaban 2.5 mg tabletDiscontinued2.5MGPOTwice dailyJuly 2023 12:00am July 05, 2024 2:37pmAspirin 81 mg tablet,sokijeyoIrsuhf51VGZSNosepGzyr 2023 12:00amComplies with drug therapyCarvedilol 3.125 mg tablet Discontinued3.125MGPOTwice dailyJuly 2023 12:00amFebruary 2024 2:38pmDivalproex 125 mg tablet,delayed release (DR/EC)Uexcahrxjofo112SNOTJogwh November 19, 2023 12:00amFebruary 2024 2:40pmSacubitril-Valsartan (Entresto) 24-26 mg ejakqiJsnhro3ACOPRPjgok dailyJuly 2023 12:00amComplies with drug therapyDapagliflozin Propanediol (Farxiga) 10 mg dcjusfLkkzzt50YFOCTjwzzUydh 2023 12:00amComplies with drug therapyFerrous Sulfate 325 mg (65 mg iron) alfdyaEhyrrpvgtuuj556HNGTCirdu times daily as needed for anemiaJuly 2023 12:00amApril 2024 11:31amFinasteride 5 mg ieecdyUrardaqmyhml8DMKQSbpkrPglm 2023 12:00amFebruary 2024 2:41pmFluticasone Propionate (Allergy Relief (Fluticasone)) 50 mcg/actuation spray,tqwbwtrquwHnlcwnzvibnv5ZEIFI INTRANASALDailyJuly 2023 12:00amApril 2024 2:03pmadminister into each nostrilInsulin Regular Hum U-500 Conc 500 unit/mL solutionDiscontinued0 SUBCUT.COMPLEXJuly 2023 12:00amMarch 2024 8:04amas directed subcutaneouslyInsulin Glargine (Lantus U-100 Insulin) 100 unit/mL solutionActive 30UNITSUBCUTTwice dailyJuly 2023 12:00amComplies with drug therapy Diphenoxylate-Atropine 2.5-0.025 mg owpctpDgaqyiqtovrt7OIMNNBulf times daily as neededJuly 2023 12:00amAugust 2023 12:22pmMetformin 500 mg tablet Dmrehetzozgn342NBPLZwczj dailyJuly 2023 12:00amMarch 2024 8:44am Naloxone 1 mg/mL lcsaecnOawmxlsdmguw3GNEYBc DirectedJuly 2023 12:00am July 05, 2024 2:43pmOndansetron 8 mg tablet,cdtkhnrjteogjoMbkrcxwoqvmn9AY PODaily as neededJuly 2023 12:00amAugust 2023 12:22pmOxycodone 5 mg mdbnveaUyhyynmoqchf6YDAATowby 6 ljzcq7Ocin 2023 12:00amMarch 2024 8:38amPotassium Chloride 10 mEq capsule, extended jzvfmtbJetfvaybtnul41BFKMW Twice dailyJuly 2023 12:00amFebruary 2024 2:45pmDaridorexant (Quviviq) 25 mg esdlptGaicunfepfji36KPTPQfwkq at bedtimeJuly 2023 12:00am March 02, 2024 4:16pmTamsulosin 0.4 mg capsuleDiscontinued0.4MGPODailyJuly 2023 12:00amFebruary 2024 2:48pmGabapentin 800 mg tabletDiscontinued 0.ROUTE.REWSYDX623Pajzpl 2023 9:40amSeptember 2023 10:02pmTAKE ONE TABLET BY MOUTH THREE TIMES A DAYGabapentin 800 mg tabletDiscontinued0.ROUTE .AZGYLBQ780Tchefgjqr 2023 10:02pmOctober 2023 9:04amTAKE ONE TABLET BY MOUTH THREE TIMES A DAYClonazepam 1 mg rjnzebJterlservrof1CZIexve at rudrqno0024 2September 2023 5:33pmOctober 2023 4:15pmRestless legs syndrome Restless legs syndrome1/2-1 tablet orally daily at bedtime; administer 30 minutes before bedtimeGabapentin 800 mg tabletDiscontinued0.ROUTE.JJWELFS916 February 11, 2024 9:04amOctober 2023 3:40pmTAKE ONE TABLET BY MOUTH THREE TIMES A DAYDiphenoxylate-Atropine 2.5-0.025 mg lwqlwkGfclvjfwhkhp5HPYRMWqoh times daily as needed for tlqtpgwo77556Lkklyoy 2023 8:21amDecember 2023 12:29pmGastroparesis GastroparesisGabapentin 600 mg ddpskoUiwgwjkzdkhd248PPHLNpnrq times hnuli917 April 08, 2024 8:52amJanuary 2024 9:22amGabapentin 600 mg tablet Ccghttqtwbrg841NTALRhwtc times wsojt150Ntjotvf2024 9:22amJanuary 2024 9:19amGabapentin 600 mg tabletDiscontinued0.ROUTE.PVIFVXI563Vnybvbg 2024 9:19amMay 2024 8:20amTAKE ONE TABLET BY MOUTH THREE TIMES A DAY Sertraline 25 mg uoxbmtYpdlovjkgdtu36ALVXUrwea121Cnodc 2024 11:33amApril 2024 11:31amFluticasone Propionate 50 mcg/actuation spray,suspensionActive 0.ROUTE.XXAALNG190Ekzrf 2024 2:03pmINSTILL 2 SPRAYS VIA NASAL ROUTE DAILY Complies with drug therapyDaridorexant (Quviviq) 50 mg uiwlvaDgpzybniizvy50AARW Daily at ffwcetn92846Mwzzi 2024 3:48pmOctober 2024 2:22pmInsomnia Insomnia, unspecifiedLidocaine 5 % adhesive patch,mtgbxgrciAgcuaj7CFSOWJZDCGCK Biavz609Rresh 2024 12:00amleave on most painful area for up to 12 hrs Complies with drug therapyGabapentin 600 mg tabletActive0.ROUTE.PDLETFP7313Iqa 2024 8:20amTAKE ONE TABLET BY MOUTH THREE TIMES A DAYComplies with drug therapyPantoprazole 40 mg tablet,delayed release (DR/EC)Xkljsmyzywlg29TMLWSjssw 302July 2024 12:00amOctober 2024 3:12pmOndansetron 4 mg tablet,lqojahcfdbalqwMmzoirvagkar0MRDIDkllh 8 hours as needed for nausea and oywkxwhh163Orzyhk 2024 4:07pmOctober 2024 1:19pmPantoprazole 40 mg tablet,delayed release (DR/EC)Imglre73WJABChras989Wzzsdgj 2024 3:12pm Complies with drug therapyOndansetron 4 mg tablet,mtthcqqwmmkcbrAjrqrb1RYNHJcwoq 8 hours as needed for nausea and rzeyozqk842Tjwxblm 2024 1:19pmComplies with drug therapyGabapentin 800 mg hcagpxAnbeikqrulyi165SDXFLumpx times daily June 22, 2019 1:00amMay 2023 10:56amApixaban (Eliquis) 5 mg Tablet Wdjvhpnvpkzq7NIEDAqyzg dailyFebruary 2019 1:00amJuly 2023 9:04am BumexDiscontinued0.5MGPOBedtimeFebruary 2019 1:00amApril 2020 8:08am Metformin 1,000 mg jwhfqkGkdhddmxcvdj3714QNMNYfqgq dailyFebruary 2019 1:00amJuly 2023 9:10amTerazosin 5 mg TvkukslSawrbwsakprv5IIGGRcwdiZaknsszc 2019 1:00amJuly 2023 9:13amInsulin Glargine (Lantus U-100 Insulin) 100 unit/mL PyqyiqtrXkokwtaezgnu99BQVXERASQIJgegq at bedtimeFebruary 2019 1:00amApril 2020 8:20amOndansetron Hcl 8 mg qrmwcxPugqdarzllad8ZEOFRykgn 8 hours as needed for NauseaFebruary 2019 1:00amJuly 2023 9:13am Tamsulosin 0.4 mg CapsuleDiscontinued0.4MGPODailyFebruary 2019 1:00amApril 2020 8:20amPantoprazole 40 mg Tablet,Delayed Release (Dr/Ec)Zdukwbkapvyx14 MGPODailyFebruary 2019 1:00amApril 2020 8:18amNitroglycerin 0.4 mg Tablet, SublingualActive0.4MGSUBLINGUALevery 5 to 15 minutes as needed for Chest PainFebruary 2019 1:00amComplies with drug therapyMirtazapine 15 mg tablet Arugbqmnlkuo84IAQWWwsecAtojbloe 2019 1:00amApril 2020 8:20amZolpidem 10 mg tfshzpGnjjuwjeujcd71EPFHWriprUpmazzin 2019 1:00amApril 2023 9:39amTiotropium [place] (Spiriva With Handihaler) 18 mcg Capsule, W/Inhalation WjblxlRhpjnvaziyfg3OILCLOVNUZVIVQcvrqNmvnwkvu 2019 1:00amFebruary 2024 2:48pmOxycodone (Oxycontin) 10 mg Tablet,Oral Only,Ext.Rel.12 Hr Xlogyvpbossr35ORLBI53HJuzrpurn 2019 1:00amJuly 2023 9:11amCephalexin (Keflex) 500 mg vbboykvIsiejfemnsjv670HSREMafwt dcfvq66203Bqeplxmo 2019 1:00amApril 2020 8:17amHydralazine 10 mg tabletDiscontinuedDece2016 1:00amFebruary 2019 2:31pmAtorvastatin 80 mg cigqmcEeabxg72KGLXAlork May 01, 2017 1:00amComplies with drug therapyCarvedilol 25 mg tablet DiscontinuedMay 01, 2017 1:00amFebruary 2019 2:32pmIsosorbide Mononitrate 30 mg tablet extended release 24 hfOsqscvafjvkz23LLCHQpcacCrowciki 22nd, 2017 1:00amFebruary 2024 2:51pmDivalproex (Depakote) 500 mg tablet,delayed release (DR/EC)Eqseotdtxuum1191PZHEHlfuuijBdjmytby 22nd, 2017 1:00amJuly 2023 9:06amPotassium Chloride 20 mEq/15 mL liquidDiscontinued May 01, 2017 1:00amFebruary 2019 2:33pmBaclofen 10 mg tablet DiscontinuedMay 01, 2017 1:00February 2019 2:32pmEsomeprazole Magnesium 40 mg capsule,delayed release(DR/EC)DiscontinuedMay 01, 2017 1:00bruary 2019 2:31pmLosartan 25 mg tabletDiscontinuedMay 01, 2017 1:00amFebruary 2019 2:31pmBumetanide 1 mg diqzcyAlzqufpcdasi5OJNP Every morningMay 01, 2017 1:00ly 2023 9:14amAmmonium Lactate 12 % creamDiscontinuedMay 01, 2017 1:00amFebruary 2019 2:32pmOxycodone 30 mg tabletDiscontinuedMay 01, 2017 1:00February 2019 2:26pm Doxycycline Hyclate 100 mg lwtvqkIjmciotivpuj1NUXIZJaglp dailyMay 01, 2017 1:00Ju 2023 9:06amLactulose 10 gram/15 mL solutionDiscontinued May 01, 2017 1:00February 2019 2:31pmLubiprostone (Amitiza) 24 mcg capsuleDiscontinued2016 1:00amFebruary 2019 2:31pm Canagliflozin (Invokana) 100 mg tabletDiscontinuedMay 01, 2017 1:00am June 22, 2019 2:32pmLevomilnacipran (Fetzima) 120 mg capsule,extended release 24hrDiscontinuedDecember 2016 1:00amFebruary 2019 2:33pm Empagliflozin (Jardiance) 10 mg tabletDiscontinuedDecember 2016 1:00am June 22, 2019 2:31pmInsulin Regular Hum U-500 Conc (Humulin R U-500 (Conc) Kwikpen) 500 unit/mL (3 mL) insulin penDiscontinuedDeceer 2016 1:00am June 22, 2019 2:31pmBumetanide 1 mg rxksizRdiflgjffatl2UCCOKmqzm morning November 19, 2023 9:05amFebruary 2024 2:51pmBumetanide 1 mg utbayxDjszlb3IE POTwice dailyFebruary 2024 2:38pmComplies with drug therapyIsosorbide Mononitrate 30 mg tablet extended release 24 czQlfehc47IVBRGtvqqZdtwihdd 2024 2:42pmComplies with drug therapyOxcarbazepine 150 mg ZvmhgeTizlefxippvj931 MGPODailyApril 2020 12:00amJuly 2023 9:13amCarvedilol 12.5 mg Tablet Xyalbfynpmjw07.5MGPOTwice dailyApr2020 12:00amJuly 2023 9:05am Spironolactone 100 mg UqswqjGcbszjgqcecc140RQXEStpaoXolks 2020 12:00am July 05, 2024 2:47pmCalcium Citrate 500 mg Tablet, Effervescent Yzdjksqmrowf618BWSLJtlcp times dailyApril 2020 12:00amJuly 2023 9:13amLosartan 100 mg WclhajQvyyqfcxllip921YTOPBlwkbHmssb 2020 12:00amJuly 2023 9:13amCholecalciferol (Vitamin D3) (Vitamin D3) 25 mcg (1,000 unit) DdbtvwiSehhjdzyxkfc00OLWDCMsuvjYjnlo 2020 12:00amApril 2024 11:31am Bupropion Hcl 200 mg Tablet Sustained-Release 12 VyFlhvwrehciat719FBOXYyawcAsnzt 2020 12:00amApril 2023 9:35amVortioxetine (Trintellix) 20 mg Tablet Bqyslskhyflf74WGRHYhlooHbtum 2020 12:00amApril 2023 9:39amOxycodone Myristate (Xtampza Er) 18 mg Cap,Sprinkl,Er12hr(Dont Crush)Bdmsgs01SFPHNespr dailyApril 2020 12:00amComplies with drug therapyMagnesium Oxide 400 mg magnesium TpmysvXmhcpjzipbua983XKTCZdzig times dailyApril 2020 12:00amJuly 2023 9:13amSemaglutide (Ozempic) 1 mg/dose (4 mg/3 mL) pen injectorActive1 MGSUBCUTevery weekMarch 2024 12:00amComplies with drug therapyDaridorexant (Quviviq) 25 mg bjggeqQbvbecrmknux43XPARNjhqx at bedtimeUniversity [facility]als [facility] 2023 1:00am July 13, 2023 4:38pmDaridorexant (Quviviq) 25 mg gtquhcNfpqthragvhp74LZNQQvryv at omcofyc21745Ahbox 2023 4:38pmApril 2023 9:59amInsomnia Insomnia, unspecifiedDaridorexant (Quviviq) 25 mg piqubqRvfivvjmjrez17ZUSNKvmgp at wlnugdx34131Fdvkw 4th, 2024 9:56amMay 2023 12:44pmInsomnia Insomnia, unspecifiedDivalproex 500 mg tablet,delayed release (DR/EC) Btrxeqrrvohv9859DOXSEmjiu dailyMarch 2024 12:00amApril 2024 11:31am Oxycodone 10 mg qqkyniUcepem54KRDPZsemj 4 hours as bcqzsc5Amcok 2024 12:00amComplies with drug therapyDiphenoxylate-Atropine 2.5-0.025 mg tablet Msaegvpwclln4PHCXYFlrspZhgts 2024 12:00amApril 2024 11:31am Erythromycin 5 mg/gram (0.5 %) mfvcncadFplkjx2BFHXUQCIU-IONWQaplgCoitv 2024 12:00amComplies with drug therapyFinasteride 5 mg dujeguHelvjidiesga7MBEL DailyMarch 2024 12:00amApril 2024 11:31amTiotropium [place] (Spiriva With Handihaler) 18 mcg capsule, w/inhalation rhgczgNvnmmv1PRTWIQBDRQEPUWldkf August 04, 2024 12:00ampuncture 1 cap using device; one dose = 2 inhalations Complies with drug therapyTamsulosin 0.4 mg capsuleDiscontinued0.4MGPODailyMarch 2024 12:00amApril 2024 11:31amErgocalciferol (Vitamin D2) 1,250 mcg (50,000 unit) qoeviavBraythiiircf8366ORQICsspou weekMarch 2024 12:00am September 01, 2024 11:31amZolpidem (Ambien) 10 mg msboojJqyoaj34IDMEVvksi at mgruqio77649Tuvkhwn 2024 12:00amInsomnia Primary insomniaComplies with drug therapyOndansetron Hcl 8 mg tablet Vfmojiinrbfr7RNJIRlzfp 12 hours as neededJuly 2024 12:00amJuly 2024 1:48pmEsomeprazole Magnesium 40 mg capsule,delayed release(DR/EC)Yrfczdhjhnuc43 LQBXGlidd529Jyzr 2024 12:00amJuly 2024 1:03pmOndansetron 4 mg tablet,hiklrcaoxyftxfZifwsmtjkfam2FCUBCawlo 8 hours as needed for nausea and goajzfwb619Ejkd 2024 12:00amAugust 2024 4:07pmdiabetic shoes Discontinued0.Route.TMSUTRTBA60Tidybvc 2024 12:00amOctober 2024 11:32amUlcer of lower extremity due to diabetes mellitus Diabetic neuropathy associated with type 2 diabetes mellitus Pressure injury, stage 4 Type 2 diabetes mellitus with other skin ulcer Type 2 diabetes mellitus with diabetic polyneuropathy Pressure ulcer of unspecified site, stage 4As directedscooterDiscontinued0.Route .PGKVCFMJL77Qwrjjkl 2024 12:00amOctober 2024 11:32amFrequent falls History of spinal surgery Osteoarthritis of right knee Diabetic neuropathy associated with type 2 diabetes mellitus Ulcer of lower extremity due to diabetes mellitus Repeated falls Other specified postprocedural states Unilateral primary osteoarthritis, right knee Type 2 diabetes mellitus with diabetic polyneuropathy Type 2 diabetes mellitus with other skin ulcerAs directeddiabetic shoesActive0 .Route.SYHXVKTYP11Nxnhkno 2024 11:31amUlcer of lower extremity due to diabetes mellitus Diabetic neuropathy associated with type 2 diabetes mellitus Pressure injury, stage 4 Type 2 diabetes mellitus with other skin ulcer Type 2 diabetes mellitus with diabetic polyneuropathy Pressure ulcer of unspecified site, stage 4As directedscooterActive0.Route .POZZHRHLT18Lwriogx 2024 11:32amFrequent falls History of spinal surgery Osteoarthritis of right knee Diabetic neuropathy associated with type 2 diabetes mellitus Ulcer of lower extremity due to diabetes mellitus Repeated falls Other specified postprocedural states Unilateral primary osteoarthritis, right knee Type 2 diabetes mellitus with diabetic polyneuropathy Type 2 diabetes mellitus with other skin ulcerAs directedClonazepam 1 mg tablet Ematfxfytnjz2JYLiqar at jrwmyvf06558Yndk 2023 12:00amSeptember 2023 5:35pmRestless legs syndrome Restless legs syndrome1/2-1 tablet orally daily at bedtime; administer 30 minutes before bedtimeDaridorexant (Quviviq) 50 mg bonbggRdpldwtbpxog30MZKLZzypn at opcjgep84276Xhauewv 2023 12:00amApril 2024 3:51pmInsomnia Insomnia, unspecifiedValacyclovir (Valtrex) 1 gram dkwganZrlipl1260WZCEVzzuy dailyAugust 2023 12:00amComplies with drug therapyPrednisolone Acetate 1 % drops,cgigchmuiyOuevvajaxncl4WQRRABUS-WFEJYjtoc dailyAugust 2023 12:00am September 01, 2024 11:31amMoxifloxacin 0.5 % jwbuiCxoykr0QDMKWTKJ-QXLPOucur 2 hoursAugust 2023 12:00amComplies with drug therapyOndansetron 8 mg tablet,enzljwimppynwdNwqjlsbhtpks0SXZXZnocq as needed for nausea and mkfamosv749 December 29, 2023 12:18pmOctober 2023 3:22pmDiphenoxylate-Atropine 2.5- 0.025 mg oesstxZxqekzdwawzu2MUYNMYqut times daily as needed for ybyobqls08491 December 29, 2023 12:19pmOctober 2023 8:22amGastroparesis GastroparesisOndansetron 8 mg tablet,yqehvfojidzfheMlkcvgaebmmq3DGZLXokrz as needed for nausea and zknvckia922Kdcfhep 25th, 2024 3:22pmApril 2024 11:31amGabapentin 600 mg fpvkdyNblsmgqjtwde650UYCZSgvyb times yluuk326Jlpjvif 2023 3:39pmNovember 2023 8:52amApixaban (Eliquis) 5 mg tabletActive5 MGPOTwice dailyFebruary 2024 1:00amComplies with drug therapyCarvedilol 6.25 mg tabletDiscontinued6.25MGPOTwice dailyFebruary 2024 1:00amMarch 2024 11:34amSpironolactone 50 mg tycpywOqfims95FUVFCtgimRumdyqke 2024 1:00amComplies with drug therapySertraline 25 mg riffwpMrgvsijccmqq71HXEJXjtfu July 05, 2024 1:00amApril 2024 11:34amMethotrexate Sodium 2.5 mg tabletDiscontinued2.5MGPOevery weekFebruary 2024 1:00amMarch 2024 8:45amFolic Acid 1 mg lhvlxyFmwtna8QUJXXdemnVuzqzhhe 2024 1:00amComplies with drug therapyDiclofenac Sodium 1 % rmeIyoihs0BZDKCQXMZVgsc times daily July 05, 2024 1:00amComplies with drug therapyDoxycycline Hyclate 100 mg fjecismBlctvocowpcq506ALNIHdfrp dailyFebruary 2024 1:00amApril 2024 11:13amCollagenase Clostridium Histo. (Santyl) 250 unit/gram ointmentActive1 APPLICTOPICALDailyFebruary 2024 1:00amComplies with drug therapy Methotrexate Sodium 2.5 mg jbuailIbztgj6EHpynld weekUniversity Hospitals [facility] 2024 8:41am 17.5mg orally every week;Complies with drug therapyMetoprolol Succinate 25 mg tablet extended release 24 bbHmazhp62TXBKYocoBcpbr 2024 1:00amComplies with drug therapyAmoxicillin-Pot Clavulanate 875-125 mg pmsgqoTjnggkrmjurm2EBGHGQpidh dailyMarch 2024 1:00amMarch 2024 8:45amEntecavir 0.5 mg tabletActive 0.5MGPODailyApril 2024 12:00amComplies with drug therapyAripiprazole 5 mg hxlahfMvwalr4DBTTRsvpzCqdbc 2024 12:00amComplies with drug therapy Lamotrigine 25 mg peanfeFknxuc79GZRHOfmpqAvdbl 2024 12:00amComplies with drug therapyMetformin 500 mg xhkfxlJgvkxe509AVYRMpnwr dailyApril 2024 12:00amComplies with drug therapy Immunizations Immunization Event Date Not Given Reason Dose Number [employer]iler [employer] Techn[employer] Lot Number Reason(s) Given Vaccine Information Statement (VIS) Detail Administration Location COVID-19 mRNA-1273 (Moderna) February 08, 2022 influenza, unspecified formulationOctober 2019influenza, unspecified formulationOct[facility] 2021Tetanus, Diphtheria adult, 5 Lf pres free absJanuary 2013Shingles (Zoster)February 08, 2022 Relevant Diagnostic Tests and/or Laboratory Data Laboratory Results Test Collection Date/Time Result Date/Time Result Interpretation Reference Range Result Comment Performing Site C-Reactive Protein, Quantitative January 06, 2025 6:16am January 06, 2025 6:16am 5.5 mg/dL Above high normal <=1.9 Corrected White Blood CountAugust 2024 10:35amA2024 11:48am7.8 10*3/uL4.1-10.5FPro[facility]ica [facility] [id number] [address] [facility] 87683Ihftcseewdf WBC CountAugust 2024 10:35amAugu2024 11:48am7.8 10*3/uL4.1-10.5FProMedica Memorial Hospital [id number] [address] [facility] 896[address]Zko Blood CountAugust 2024 10:35amAugu2024 11:48am4.25 10*6/uL3.90-5.60[facility] [id number] [address] [facility] 46898UuvyrlyzbqKtzzwb 2024 10:35amAugu2024 11:48am 10.7 g/dLBelow low rjqces21.0-17.0[facility] [id number] [address] [facility] 96352HmgrigzlnyRoucbx 20th, 2025 10:35amA2024 11:48am 33.2 %Below low djfmgy42.8-50.0[facility] [id number] [address] [facility] 76121Whcm Corpuscular VolumeAugust 2024 10:35amA2024 11:48am78.0 fLBelow low owcebp21.5-101[facility] [id number] [address] [facility] 74435Zinw Corpuscular HemoglobinAugust 2024 10:35amA2024 11:48am25.1 pgBelow low ocxjuy35.5-35.2FA[facility] [id number] [address] [place] [address] 30380Hnnk Corpuscular Hemoglobin ConcentAugust 2024 10:35am December 28, 2024 11:48am32.1 g/dLBelow low bqotnp41.5-35.6FA[facility] [id number] [address] [facility] 37508Lsc Cell Distribution WidthAugust 2024 10:35amA2024 11:48am21.1 %Above high xdghib07.0-14.8[facility] [id number] [address] [facility] 530[address]Qjuxsqsr CountAugust 2024 10:35amA2024 11:55wc897 10*3/pT210-926ZiuaywtnwMarietta [facility] [id number] [address] [facility] 12033Fhks Platelet VolumeAugust 2024 10:352024 11:48am8.4 fL6.6-10.1FAvita [facility] [id number] [address] [facility] 35777Kgsjatjuvdu (%) (Auto)December 28, 2024 10:352024 11:48am69.9 %.[facility] [id number] [address] [facility] 30602Leqqrnudzmw (%) (Auto)December 28, 2024 10:352024 11:48am21.3 %.[facility] [id number] [address] [facility] 80969Xabftvmmo (%) (Auto)December 28, 2024 10:352024 11:48am6.6 %.[facility] [id number] [address] [facility] 20572Nxwdnxwxzbl (%) (Auto)December 28, 2024 10:352024 11:48am1.3 %.[facility] [id number] [address] [facility] 61554Vkauavzmo (%) (Auto)December 28, 2024 10:352024 11:48am0.9 %.[facility] [id number] [address] [facility] 83588Bofivahra RBC Relative Count (auto)December 28, 2024 10:35am December 28, 2024 11:48am0.0 /100{WBC}0-0.5FA[facility] [id number] [address] [facility] 34283Gcrgpsanbeg # (Auto)December 28, 2024 10:352024 11:48am5.4 10*3/uL1.8-7.7FA[facility] [id number] [address] [facility] 46684Assfgjlhdjs # (Auto)December 28, 2024 10:352024 11:48am1.7 10*3/uL1.00-4.8[facility] [id number] [address] [facility] 52979Vrnzfilqe # (Auto)December 28, 2024 10:35amAugu2024 11:48am0.5 10*3/uL0.0-0.8[facility] [id number] [address] [facility] 13029Fsdinsrqhfm # (Auto)December 28, 2024 10:35amAugu2024 11:48am0.1 10*3/uL0.0-0.45[facility] [id number] [address] [facility] 58796Nxwhljeer # (Auto)December 28, 2024 10:35amAugu2024 11:48am0.1 10*3/uL0.0-0.2FA[facility] [id number] [address] [facility] 14191Riwihio LevelAugust 2024 10:352024 12:03pm 136 mg/dLAbove high vkdiqd92-456YDN recommended reference rangeRandom Glucose Reference Range is dependent on time and content of last meal. Glucose of more than 200 mg/dL in a nonstressed, ambulatory subject supports the diagnosisof Diabetes Mellitus.[facility] [id number] [address] [facility] 60753Pvaruah LevelOctober 2024 11:20amOctober 2024 11:50ze114 mg/dLAbove high eolacl87-968MMN recommended reference rangeRandom Glucose Reference Range is dependent on time and content of last meal. Glucose of more than 200 mg/dL in a nonstressed, ambulatory subject supports the diagnosisof Diabetes Mellitus.[facility] [id number] [address] [facility] 09739Nuhgn Urea NitrogenAugust 2024 10:35amA2024 12:03pm21 mg/dL7-[facility] [id number] [address] [place] [address] 18085Ixsyv Urea NitrogenOctober 2024 11:20amOctober 2024 11:41am19 mg/dL7-[facility] [id number] [address] [facility] 45715EfkmhwzypnLbueeh 2024 10:352024 12:03pm 0.70 mg/dL0.70-1.30[facility] [id number] [address] [facility] 68032MvbvryixofTxdnbhf 2024 11:20amOctober 2024 11:41am 0.73 mg/dL0.70-1.30[facility] [id number] [address] [facility] 13071Sjrfltfgr GFR (CKD-EPI)December 28, 2024 10:352024 12:03pm> 60.0 mL/MinMarietta Memorial Hospital Ctr [id number] [address] [facility] 14487Vmdqkzylx GFR (CKD-EPI)March 03, 2025 11:20amOctober 2024 11:41am> 60.0 mL/MinMarietta Memorial Hospital Ctr [id number] [address] [place] [address]Sodium LevelAugust 2024 10:352024 12:03pm 139 mmol/N807-712OhjdejurqMarietta Memorial Hospital [facility] [id number] [address] [facility] 84384Qiebgu LevelOctober 2024 11:20amOctober 2024 11:84mh775 mmol/B169-377TxcpgfmyyMarietta Memorial Hospital [facility] [id number] [address] [facility] 85239Goedellmj LevelAugust 2024 10:352024 12:03pm3.7 mmol/L3.5-5.1FA[facility] [id number] [address] [facility] 26100Hqfknkset LevelOctober 2024 11:20amOctober 2024 11:41am4.3 mmol/L3.5-5.1FA[facility] [id number] [address] [facility] 52819Inybxnnx LevelAugust 2024 10:352024 12:05dz170 mmol/P56-801HzqydxxonMarietta Memorial Hospital [facility] [id number] [address] [facility] 87180Yfhggoxm LevelOctober 2024 11:20amOctober 2024 11:34ik473 mmol/M58-727LfxltuhhgMarietta Memorial Hospital [facility] [id number] [address] [facility] 75323Ypmimz Dioxide LevelAugust 2024 10:35amAugu2024 12:03pm30.6 mmol/L21.0-31.0[facility] [id number] [address] [facility] 24458Hpvxgz Dioxide LevelOctober 2024 11:20amOctober 2024 11:41am31.0 mmol/L21.0-31.0[facility] [id number] [address] [facility] 58710Rpqdd GapAugust 2024 10:35amA2024 12:03pm11.1 mEq/L6.0-15.0[facility] [id number] [address] [facility] 52695Mwzag GapOctober 2024 11:20amOctober 2024 11:41am 7.3 mEq/L6.0-15.0[facility] [id number] [address] [facility] 52930Gipztzc LevelAugust 2024 10:352024 12:03pm 8.3 mg/dLBelow low normal8.6-10.3FA[facility] [id number] [address] [facility] 08740Dhmaxuc LevelOctober 2024 11:20amOctober 2024 11:41am8.6 mg/dL8.6-10.3FA[facility] [id number] [address] [facility] 74248Fgwcu ProteinAugust 2024 10:352024 12:03pm 6.1 g/dLBelow low normal6.4-8.9[facility] [id number] [address] [facility] 17004NhajrisCrpxhl 2024 10:352024 12:03pm3.2 g/dLBelow low normal3.5-5.7FA[facility] [id number] [address] [facility] 05492YrtsvmpaMjnfhj 2024 10:352024 12:03pm2.9 g/dLMarietta Memorial Hospital [facility]tr [id number] [address] [facility] 28612Uccclvo/Globulin RatioAugust 2024 10:352024 12:03pm1.1FA[facility] [id number] [address] [facility] 98476Ypvyl BilirubinAugust 2024 10:352024 12:03pm0.7 mg/dL0.3-1.0[facility] [id number] [address] [facility] 04250Wexvkxoku Amino Transf (AST/SGOT)December 28, 2024 10:35am December 28, 2024 12:03pm14 U/L12-60CwjyhntdqMarietta Memorial Hospital Ctr [id number] [address] [facility] 38588Ivwajll Aminotransferase (ALT/SGPT)December 28, 2024 10:35am December 28, 2024 12:03pm13 U/L7-52[facility] [id number] [address] [place] [address] 25277Gzjxeync PhosphataseAugust 2024 10:352024 12:03pm68 U/Q74-703SzrcaqagpMarietta Memorial Hospital Ctr [id number] [address] [place] [address] 78602TseitqSsrmrw 2024 10:442024 12:14pm14.0 U/L11.0-82.0[facility] [id number] [address] [facility] 33586Qdoetnrn Creatinine Clearance (ChemAugust 2024 10:35am December 28, 2024 12:03pmN/[facility] [id number] [address] [facility] 96090Xdivgwsh Creatinine Clearance (ChemOctober 2024 11:20am March 03, 2025 11:15nm185.25[facility] [id number] [address] [facility] [address] Vital Signs Vital Reading Result Reference Range Collection Date/Time Height 71 [in_i] December 29, 2024 8:05qvQmutuz439.60 kgAugust 2024 8:32amBody Temperature 98.5 [degF]97.6-99.0August 2024 12:10pmHeart Rate98 /vhg97-151Szuxap 2024 12:10pmRespiratory rate20 /vry74-38Megdrl 2024 12:10pmOxygen saturation by Pulse lgxalscw26 %95-100August 2024 12:10pmBP Ldazifjg935 mm[Hg]100-140August 2024 12:10pmBP Sqzxqeixi77 mm[Hg]60-100August 2024 12:88gkVxpasd68 [in_i]February 08, 2025 10:58bhJphfdt417.28 kgOctober 2024 10:55amHeart Rate91 /bnb50-024Vlnylnr 2024 10:55amRespiratory rate14 /kdf83-36Pgikyla 2024 10:55amOxygen saturation by Pulse xfhmnkna36 %95-100 February 08, 2025 10:55amBP Uvuocprg673 mm[Hg]100-140October 2024 10:55amBP Zmdgaqauk28 mm[Hg]60-100October 2024 10:55amBMI (Body Mass Index)38.2 kg/l8Rfvjrkf2024 10:55uxXoveno29 [in_i]March 06, 2025 10:36amWeight 126.40 kgOctober 2024 10:36amHeart Rate83 /gku05-133Eywlsns 2024 10:43amRespiratory rate18 /rbc86-11Onnnclm 2024 10:43amOxygen saturation by Pulse mqilfcyu237 %95-100October 2024 10:43amBP Ygetypnv744 mm[Hg] 100-140October 2024 10:43amBP Tvzcjrbby10 mm[Hg]60-100October 2024 10:56emLjhgdj73 [in_i]March 08, 2025 1:54gsNwdqaa405.55 kgOctober 2024 1:55pmHeart Rate85 /caj74-235Sioelna 2024 1:55pmOxygen saturation by Pulse ztznfayi48 %95-100[facility] 2024 1:55pmBP Fhqbuuzu282 mm[Hg]100-140 March 08, 2025 1:55pmBP Snedhunkt20 mm[Hg]60-100[facility] 2024 1:55pmBMI (Body Mass Index)38.9 kg/i1Qjapyan 2024 1:55pm Advance Directives Advance Directive Response Recorded Date/ Time Advance Directives No June 2:18pm Insurance Providers Guarantor Bi [address] Address [address] [place] [address]Okxtryk Info.Home Phone: Coverage Status Update:2024 Payer Group Member ID Coverage Type Subscriber Relationship to Subscriber Effective Date Expiration Date [facility] [id number] Waterman Id: [id number] [address] [place] [address] Home Phone: Email: [email or web address] [id number] Waterman Id: [id number] [address] [place] [address] Home Phone: Email: [email or web address] [id number] Waterman Id: [id number] [address] [place] [address] Home Phone: Email: [email or web address] [email or web address] Encounter Location(s) Arrival/Admit Date Discharge/Departure Date Discharge/Departure Disposition Provider(s) Discharged Recurring -Infusion Therapy - O/P December 29, 2024 7:44am December 29, 2024 12:40pm Discharged to home care or self care (routine discharge) Funmi Barr MD Non-patient / Non-visit -[facility] ugust 2024 6:16am Ronaldo Arcos MDNon-patient / Kqr[facility]rhadl-[facility] Administrationept[facility] 2024 1:35pmCatgiulia Benson CMADeparted Physician/Provider [facility] 10:48amOctober 2024 11:22am Discharged to home care or self care (routine discharge)Elin Liz MD Registered Recurring-Infusion Therapy - O/POctober 2024 10:36amEhab A EltahawyDeparted Physician/Provider [facility] 2024 1:33pmOctober 2024 2:25pmDischarged to home care or self care (routine discharge)Jeb Hernandez MD Recent Diagnosis Onset Date Admit Date C. difficile diarrhea Unknown February 10:48am Chronic diarrhea Unknown February 08 10:48am Colon cancer screening Unknown February 082024 10:48am Controlled diabetes mellitus with diabetic polyneuropathy, without long-ter Unknown February 08, 2025 10: 48am Diabetes mellitus with ulcer of lower extremity Unknown February 08, 2025 10:48am Diabetic neuropathy associat ed with type 2 diabetes mellitus Unknown February 08, 2025 10:48am Frequent falls Unknown February 08 10:48am History of back surgery Unknown February 08, 2025 10:48am Osteoarthritis of right knee Unknown Feb 10:48am Pressure ulcer, stage 4 Unknown February 08, 2025 10:48am Insomnia Unknown March 08 1:33pm Obstructive sleep apnea hypopnea, severe Unknown March 08, 2025 1:33pm Restless legs syndrome Unknown February 092024 1:33pm Assessments Diagnosis Onset Date Resolution Status Admit Date C. difficile diarrhea acuteOctober 2024 10:48amChronic diarrheaacuteOctober 2024 10:48am Colon cancer screeningacuteOctober 2024 10:48amControlled diabetes mellitus with diabetic polyneuropathy, without long-teracuteOctober 2024 10:48am Diabetes mellitus with ulcer of lower extremityacuteOctober 2024 10:48am Diabetic neuropathy associated with type 2 diabetes mellitusacuteOctober 2024 10:48amFrequent fallsacuteOctober 2024 10:48amHistory of back surgery acuteOctober 2024 10:48amOsteoarthritis of right kneeacuteOctober 2024 10:48amPressure ulcer, stage 4chronicOctober 2024 10:48amInsomniaacute October 2024 1:33pmObstructive sleep apnea hypopnea, severeacuteOctober 2024 1:33pmRestless legs syndromeacuteOct2024 1:33pm Plan of Treatment Author Jeb Hernandez [facility] 2024 2:24pmPatient is stable on present therapy. Will make no changes to present therapy as presently prescribed. Patient continues to complaint of insomnia and felt that zolpidem was most effective. This will be resumed and Quviviq will be discontinued. We will see the patient back in 6 months but he was encouraged to call us with any new sleep issues or concerns. Author Elin Liz [facility] 2024 4:21pmas above Pt agrees to GI referral. as above B feet - continue followup w podiatry. stable - followup w endocrinology as scheduled. needs shoes and a scooter. as above as above. Needs scooter to perform ADLs as above as above. Future Tests Future scheduled test information is unavailable Pending Tests Pending diagnostic test information is unavailable Future Visits Future appointment information is unavailable Future Procedures Future procedure information is unavailable Future Medications Future medication information is unavailable Patient Instructions Patient instructions are unavailable
--- OUTSIDE RECORDS SUMMARY | 2025-03-22 13:25 | XMS_ITS | Clinical Summary ---
Author Organization [facility] Address [address] [place] [address], [address] [place] [address] Care Team Providers Care Supply Chain Consultant Name Role Phone Elin Liz MD Primary Care Provider [phone] Social History Tobacco UseTypesPacks/DayYears UsedDateSmoking Tobacco: Never AssessedSex and Gender InformationValueDate RecordedSex Assigned at BirthNot on fileLegal Sex Male02/01/2014 3:36 PM EDTGender IdentityNot on fileSexual OrientationNot on file Plan of Treatment Not on file Care Teams Team MemberRelationshipSpecialtyStart DateEnd Date Elin Liz MD [facility]02/01/15
--- OUTSIDE RECORDS SUMMARY | 2025-03-22 13:25 | XMS_ITS | Clinical Summary ---
Author Organization [facility] Address [address] [place] [address] Care Team Providers Care Wrapper Stemmer Hand Name Role Phone Elin Liz MD Primary Care Provider [phone] Allergies Active AllergyReactionsCriticalityNoted DateCommentsPeg 3350-ElectrolytesRash 09/15/2016Promethazine HclOther: See Mkfcieqm52/31/2013Metoclopramide HclOther: See Clidzvtq40/08/2017Sulfa (Sulfonamide Antibiotics)Other: See Comments 05/10/2013 Medications MedicationSigDispense [...] type diabetes mellitus without mention of complication, jpmvtehxbhlf07/01/2014 Overview (04/10/2014): 2005 Hfguxypyoptlv86/01/2014CHF (congestive heart failure)04/10/2014OSA (obstructive sleep apnea)04/10/20142595Pxhvujlvr01/01/2014Spinal dkmrayhb64/01/2014OA (osteoarthritis)04/10/2014Fatty liver04/10/2014Renal mass04/10/2014 Overview (04/10/2014): BENIGN GERD (gastroesophageal reflux disease)04/10/2014Dyslipidemia associated with type 2 diabetes otmmsepj98/01/2014 Social History Tobacco UseTypesPacks/DayYears UsedDateSmoking Tobacco: FormerCigarettesQuit: 09/15/2000 Comments:Quit 2000 Alcohol UseStandard Drinks/WeekCommentsNo0 (1 standard drink = 0.6 oz pure alcohol)Sex and Gender InformationValueDate RecordedSex Assigned at BirthNot on fileLegal EyvFnez53/02/2012 10:06 AM ESTGender IdentityNot on fileSexual OrientationNot on file Last Filed Vital Signs Vital SignReadingTime TakenCommentsBlood Qjvvehdm034/75009/15/2016 10:09 AM EDT Qezgs688509/15/2016 10:09 AM TNWNfocxkdltfx95 ??C (98.6 ??F)09/15/2016 10:09 AM EDTRespiratory Tsje689509/15/2016 10:09 AM EDTOxygen Vyjczgnyje91%09/15/2016 10:09 AM EDTInhaled Oxygen Concentration--Otbout996.7 kg (330 lb)09/15/2016 10:09 AM KKYQizvyh182.3 cm (5' 11 )09/15/2016 10:09 AM EDTBody Mass Index46.03009/15/2016 10:09 AM EDT Plan of Treatment Health MaintenanceDue DateLast DoneCommentsAnxiety Etrjskyyi10/04/1980Depression Klruoricc01/04/1980HIV Bnfdiihgn01/04/1980Hepatitis C Codvceqfm37/04/1980 DTaP,Tdap,Td Vaccine (1 - Tdap)04/04/1981Lipid Xplirwett65/04/1997CT Ertptiboyjpr12/04/2007Cologuard (FIT-DNA)08/12/20066663Kpniakjvnvm60/04/2007 Colorectal Cancer Lgxiwjrxw95/04/2007Diabetes Wytvpderj86/04/2007Fecal Occult Blood2006Prostate Cancer Screening Kygnbnearu78/04/2007Sigmoidoscopy 2006Pneumococcal Vaccine: 50+ (1 of 1 - PCV)08/13/2011Shingrix Vaccine (1 of 2)08/13/2011Covid-19 Vaccine (1 - 2024- season)2025Influenza Vaccine (#1)2025RSV Vaccine (1 - 1-dose 75+ series)2036 Insurance Care Teams Team MemberRelationshipSpecialtyStart DateEnd Elin Liz MD [address] [place] [id number] PCP - GeneralFamily Cqzufgfg25/24/13
--- OUTSIDE RECORDS SUMMARY | 2025-03-22 13:25 | XMS_ITS | Clinical Summary ---
Author Organization [employer] Address [id number] [address] [place] [address] Care Team Providers Care Dredge Master Name Role Phone Elin Liz MD Primary Care Provider [phone] Allergies Active AllergyReactionsCriticalityNoted DateCommentsFood Allergy FormulaWheezing 03/17/2016 Go-lightly drink PmggcxlualjsPubxydjc11/07/2016Metoclopramide Hcl11/19/2017Sulfa (Sulfonamide Antibiotics)Bdhnxwrp17/07/2016 Medications MedicationSigDispense QuantityRefillsLast FilledStart DateEnd DateStatus zolpidem [...] 1 TABLET EVERY 12 HOURS FOR 30 VQKI804Active cholecalciferol, vitamin D3, 50,000 units tablet Indications:Intestinal [...] of DVT (deep vein thrombosis)10/05/2018History of pulmonary unrmrysc17/28/2019S/P IVC filter 10/05/2018Diastasis recti09/30/2018BMI 50.0-59.9, adult06/16/2018Chronic osteomyelitis of pamvec3312/05/2016Sacral ulcer03/17/2016CHF (congestive heart failure)04/10/2014Fatty liver04/10/20145252Vzbtabbnsyvnk93/01/2014GERD (gastroesophageal reflux disease)04/10/2014OA (osteoarthritis)04/10/2014OSA (obstructive sleep apnea)04/10/2014Spinal doatxrzr42/01/2014Renal mass04/10/2014 Overview (09/30/2018): BENIGN Morbid pwtwwhs0310/19/2013Coronary yokgylxcnsdtnyt67/02/2012Generalized vufccftyfgjqqf33/06/7171Pqyfommjciwdim68/30/2012Essential burhkqmdsoxr49/30/2012 Old myocardial nlamqdfnkh87/30/2012 Immunizations ImmunizationAdministration DatesNext DueInfluenza, Injectable, Quadrivalent 02/19/2017Influenza, Injectable, quadrivalent (PF)03/11/2016Influenza, Ivwojpygxzq76/01/2018Pneumococcal Conjugate 13-Sqnnva9203/11/2016 Family History Medical HistoryRelationNameCommentsCancerBrotherCancerFatherStrokeFatherdied in his 70sCancerMotherStomach cancerMotherStrokeMotherdied at age 43Anesthesia problemsNeg HxBlood ClotsNeg HxRelationNameStatusCommentsBrotherDeceasedFather (Age 72)MotherDeceased (Age 43) Social History Tobacco UseTypesPacks/DayYears UsedDateSmoking Tobacco: FormerCigarettesQuit: 06/17/2000Smokeless Tobacco: Never Tobacco Cessation:Counseling Given: Yes Alcohol UseStandard Drinks/WeekCommentsNo0 (1 standard drink = 0.6 oz pure alcohol)ChildcareAnswerDate RvoqntjlCawfeabkwBkigayb70/05/2019EmploymentAnswer Date XeoybnlmNzcxfcqgclCsglguu90/05/2019Purpose - LifeAnswerDate RecordedPurpose and direction in gazdDvjvwfc60/10/2021Sex and Gender InformationValueDate RecordedSex Assigned at BirthNot on fileLegal IymNlam4512/12/2014 12:30 PM EDT Gender IdentityNot on fileSexual OrientationNot on file Last Filed Vital Signs Vital SignReadingTime TakenCommentsBlood Lpymuvsp048/6409 2:49 PM EDT Xzsvd1290 2:49 PM CGXTnkqespsnuj19.5 ??C (97.7 ??F)01/17/2019 2:49 PM EDTRespiratory Pile0073 2:49 PM EDTOxygen Wflquzplbp68%01/10/2019 4:18 PM EDTInhaled Oxygen Concentration--Ubvywa989.5 kg (301 lb)01/11/2019 12:35 PM DDOGkpmbj171.3 cm (5' 10.98 )01/11/2019 12:35 PM EDTBody Mass Agewc320501/11/2019 12:35 PM EDT Plan of Treatment Health MaintenanceDue DateLast DoneCommentsStatin Use: Lixvtxrqwxdzlv78/04/1962 Depression Jwwouvbdo29/04/1974Tobacco Jxlligzvi79/04/1974Adult BMI Screening 08/13/1979DTaP,Tdap and Td Vaccines (1 - Tdap)1980Zoster (Shingles) Vaccine (1 of 2)08/13/2011RSV ( or age 60+ yrs) (1 - Risk 60-74 years 1- dose series)2021Influenza Kykzslx23, 02/19/2017, 03/11/2016 Goals GoalPatient Goal TypeAssociated ProblemsRecent ProgressPatient-Stated?Author Home GeneralYesCanales, Chante Carroll, PIEDAD Note: Evaluation of progress towards goal: Patients goal is to discharge to home with Jin. Medical Devices Not on file Insurance Advance Directives TypeDate RecordedPatient RepresentativeExplanationDurable Power of Research Associate Quality Control Qc * Full Code (Latest Code Status on File) Date ActivatedDate InactivatedComments10/13/2018 11:30 PM10/18/2018 7:45 PM Care Teams Team MemberRelationshipSpecialtyStart DateEnd Date Elin Liz MD [address] [place] [id number] PCP - General09/30/18
--- OUTSIDE RECORDS SUMMARY | 2025-03-22 13:26 | XMS_ITS | Clinical Summary ---
Author Organization [facility] Address [address] [place] [address] Care Team Providers Care Saw Filer Name Role Phone Elin Liz MD Primary Care Provider [phone] Allergies Active AllergyReactionsCriticalityNoted DateCommentsMetoclopramideOther,Rash, UsmowdnVtc76/08/2017 Other Reaction(s): Twitching Peg 5830-Gkq-Vtqhw-Nacl-NasulfRash,VdnqzlyBsz00/10/2016PromethazineOther,Rash, Unknown,OgehzhzjYfy52/31/2013 Other Reaction(s): Shortness of Breath Sulfa AntibioticsOther,Rash,Unknown,LscvyknzKei74/31/2013 Sulfamethoxazole-Slrntkwdyzxj99/10/2016 Medications MedicationSigDispense QuantityRefillsLast FilledStart DateEnd DateStatus Eliquis [...] tablet Take 1 tablet by mouth at wwozyen6510/14/2023ctive insulin regular (HumuLIN R U-500) 500 UNIT/ML [...] 3 DOSES ONLY. IF NO RELIEF, CALL 56838/ctive ondansetron ODT (Zofran-ODT) 8 MG disintegrating tablet [...] 2 diabetes mellitus with hyperglycemia, unspecified whether chcf insulin use (HCC)Take 1 tablet (500 mg) by mouth in the morning and 1 tablet (500 mg) in the evening. Take with meals. 180 tablet 5Active semaglutide (Ozempic, 1 MG/DOSE,) 2 MG/1.5ML solution pen-injector Indications:Type 2 diabetes mellitus with hyperglycemia, unspecified whether oysterman insulin use (HCC)Inject 1 mg under the skin 1 (one) time per week 9 mL /6Active dapagliflozin (Farxiga) 10 MG Indications:Type 2 diabetes mellitus with hyperglycemia, unspecified whether oysterman insulin use (HCC)Take 1 tablet (10 mg) by mouth Daily 90 tablet /6Active Resolved Problems ProblemNoted DateDiagnosed DateResolved DateCOPD without sqwidovsnfdq71/28/2023 02/05/2023cute systolic heart marnrdu29cute on chronic combined systolic and diastolic congestive heart sjumzvy19 Overview (02/05/2023): Last Assessment & Plan: [facility] Continue GDMT- ASA, bumex, entresto coreg, farxiga, and aldatone Diuretic therapy- bumex 3 mg po bidand will send order for bumex 2 mg IV q Thu-Thu and Thursday with weekly BMP q Thu. Monitor daily weights, I&O, fluid restriction 1.5-2L/day, renal function and electrolytes- please maintain K+>4 and Mg > 2 Bipolar bvukibzy59/VT (deep venous thrombosis)09/10/2022 02/05/2023therosclerotic heart disease of [place] coronary artery with unspecified angina eizkqlvk42/10/596766/28/2023Carotid artery occlusion Encounters DateTypeDepartmentCare BqqyGemekmrnorw13/13/8069Qkicqq40/02/2025bstract [facility] [address] [place] [address] Ramiro Tan, DPFranky FACFAS 12/28/2024 1:30 PM EDTOffice Visit [facility] [address] [place] [address] Laz Romo MD Type 2 diabetes mellitus with hyperglycemia, unspecified whether oysterman insulin use (HCC) (Primary Dx); Vitamin D deficiency; Hyperlipemia, mixed ; Encounter for dietary consultation; H/O gastric bypass; Class 2 severe obesity due to excess calories with serious comorbidity and body mass index (BMI) of36.0 to 36.9 in adult ([facility]-H[facility])12/28/2024amboo flowsheet [facility] [address] [place] [address] Laz Romo MD 12/23/2024Refill [facility] [address] [place] [address] Laz Romo MD Type 2 diabetes mellitus with hyperglycemia, unspecified whether chcf insulin use (HCC)from Last 3 Months Immunizations ImmunizationAdministration DatesNext DueABRYSVO - Respiratory syncytial virus (RSV), vaccine, bivalent, protein subunit RSV prefusion F, diluent reconstituted, 0.5 mL, PF02/19/2023Influenza, Yditnolzzmn10/01/2022,03/06/2020, 02/08/2018Influenza, injectable, ybbpvcpozjgp11/04/2019,02/19/2017,02/08/2015 Influenza, injectable, quadrivalent, preservative free02/29/2024,02/19/2023, 03/05/2021,04/13/2019,03/11/2016Pneumococcal Conjugate PCV 13105/11/2015 Pneumococcal Conjugate PCV 3Pneumococcal Polysaccharide PPSV23 05/11/20118085JPTC-HAN-6 (COVID-19) vaccine, mRNA, spike protein, LNP, PF, 50 mcg/0.5 mL02/29/2024,02/19/2023Td (adult), 5 Lf tetanus toxoid, preservative free, kkzumccm75/08/2014Zoster, Rsjkqmfboft28/23/2023Zoster, live02/08/2022 Family History Medical HistoryRelationNameCommentsDiabetesFatherHypertensionFatherStrokeFather DiabetesMotherHypertensionMotherStrokeMotherRelationNameStatusCommentsFather DeceasedMotherDeceased Social History Tobacco UseTypesPacks/DayYears UsedDateSmoking Tobacco: BsjzvlHnljdfojzw141 Tobacco Cessation:Counseling Given: Not Answered Comments:Quit 07/2008 Alcohol UseStandard Drinks/WeekCommentsNever0 (1 standard drink = 0.6 oz pure alcohol)Sex and Gender InformationValueDate RecordedSex Assigned at BirthNot on fileLegal ReqCczm3307/23/2022 7:59 PM EDTGender IdentityNot on fileSexual AsfvyaknydkFuo29/29/2023 2:37 PM EDT Last Filed Vital Signs Vital SignReadingTime TakenCommentsBlood Tdrtvmbv420/8208 1:22 PM EDT Joqyc079412/28/2024 1:22 PM EDTTemperature--Respiratory Qmnk1291 1:22 PM EDTOxygen Mbcixarlwe52%12/28/2024 1:22 PM EDTInhaled Oxygen Concentration-- Asutwk085 kg (265 lb)12/28/2024 1:22 PM GDCGlczkg694.3 cm (5' 11 )12/28/2024 1:22 PM EDTBody Mass Index36.9608 1:22 PM EDT Plan of Treatment DateTypeDepartmentCare Team (Latest Contact Info)Padurdsuvyv51/23/2026 2:00 PM ESTOffice Visit [facility] [address] [place] [address] Laz Romo MD [address] [place] [address] Health MaintenanceDue DateLast DoneCommentsCT Kgnhpobqfczp91/04/1962Colonoscopy 2Colorectal Cancer Qxqtwgzbp01/04/1962FIT-DNA1961FIT1961 FOBT08/12/19617059Opjsfubmajmry49/04/1962OVID-19 Vaccine ( season) , 03/27/2021, 07/18/2020Influenza Vaccine (#1)2025 02/29/2024, 02/19/2023, 02/08/2022, Additional history existsPneumococcal Vaccine: Pediatrics (0 to 5 Years) and At-Risk Patients (6 to 64 Years)Aged Out 02/19/2023, 03/11/2016, 05/11/2011No longer eligible based on patient's age to complete this topic Procedures Procedure NamePriorityDate/TimeAssociated DiagnosisCommentsPOCT GLYCOSYLATED HEMOGLOBIN (HGB A1C)Isfdrwu0412/28/2024 1:24 PM EDT Type 2 diabetes mellitus with hyperglycemia, unspecified whether oysterman insulin use (HCC) POCT JDVZTPIYexjvjd67/20/2025 1:24 PM EDT Type 2 diabetes mellitus with hyperglycemia, unspecified whether chcf insulin use (HCC) from Last 3 Months Results * POCT glycosylated hemoglobin (Hb A1C) docked device (12/28/2024 1:24 PM EDT) ComponentValueRef RangeTest MethodAnalysis TimePerformed AtPathologist SignatureHemoglobin A1C5.8Specimen (Source)Anatomical Location / Laterality Collection Method / VolumeCollection TimeReceived TimeBloodVenous blood specimen / Mcxezfi2612/28/2024 1:24 PM EDT Narrative Authorizing ProviderResult TypeResult StatusLaz Romo MDPOINT OF CARE TEST ENTER/EDIT ORDERABLESFinal Result * POCT glucose manually resulted (12/28/2024 1:24 PM EDT)ComponentValueRef Range Test MethodAnalysis TimePerformed AtPathologist SignatureGlucose Blood, QSD729 mg/dLSpecimen (Source)Anatomical Location / LateralityCollection Method / VolumeCollection TimeReceived TimeBloodCapillary blood specimen / Unknown 12/28/2024 1:24 PM EDT Narrative Authorizing ProviderResult TypeResult StatusAhsheri Romo MDPOINT OF CARE TEST ENTER/EDIT ORDERABLESFinal Result from Last 3 Months Insurance Care Teams Team MemberRelationshipSpecialtyStart DateEnd Elin Liz MD [address] [facility] [place] [address] PCP - GeneralFamily Medicine09/27/24
--- OUTSIDE RECORDS SUMMARY | 2025-03-22 13:38 | XMS_ITS | CCD ---
Author Organization 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 Name Role Phone SURAJ LIZ Primary Care Physician Liz Resendiz Unavailable Unavailable Debora, Kwabena Unavailable Jeb Hernandez Unavailable SURAJ LIZ Primary Care Unavailable SURAJ LIZ Referring Unavailable DELMA ALBA Attending Unavailable PARTH SARMED Admitting Unavailable ROSEMARY BARRON Attending Unavailable SURAJ LIZ Primary Care Unavailable EL-ZAWAHRYBRIANMED Referring Unavailable EL-ZAWAHRY AHMED Admitting Unavailable LARRY, YANICK Admitting Unavailable LARRY, YANICK Attending Unavailable JANET OTERO Referring Unavailable SURAJ LIZ Primary Care Unavailable MD Suraj Liz Primary Care Provider Janet Otero Attending Provider DR SURAJ LIZ Primary Care Unavailable ELTAHAWY, DR JASON Attending Unavailable ELTAHAWY, DR JASON Admitting Unavailable ELTAHAWY, DR JASON Consulting Unavailable DR SURAJ LIZ Primary Care Unavailable ELTAHAWMonika, DR JASON Attending Unavailable ELTAHAWY, DR JASON Admitting Unavailable ELTAHAWY, DR JASON Consulting Unavailable DR SURAJ LIZ Primary Care Unavailable ELTAHAWY, DR JASON Attending Unavailable ELTAHAWMonika, DR JASON Admitting Unavailable ZARINA CHOWDHURY Consulting Unavailable REQUEST, DR MEMO HIGH Primary Care Unavaila ble ELTAHAWY, DR JASON Attending Unavailable ELTAHAWY, DR JASON Admitting Unavailable MISC, DR CAROLINA Attending Unavailable MISC, DR CAROLINA Admitting Unavailable LIZ, DR SURAJ Crowley Primary Care Unavailable HIGHLANDER, KOLE Silva Attending Unavailable HIGHLANDER, PETER D Admitting Unavailable DANDY, NATHAN Consulting Unavailable LIZ, DR SURAJ Crowley Primary Care Unavailable DANDY, NATHAN Attending Unavailable DANDY, NATHAN Admitting Unavailable REQUEST, DR MEMO LISTED Primary Care Unavaila ble DANDY, NATHAN Attending Unavailable DANDY, NATHAN Admitting Unavailable ELTAHAWY, DR JASON Consulting Unavailable LIZ, DR SURAJ Crowley Primary Care Unavailable ELTAHAWY, DR JASON Attending Unavailable ELTAHAWY, DR JASON Admitting Unavailable DANDY, NATHAN Consulting Unavailable LIZ, DR SURAJ Crowley Primary Care Unavailable DANDY, NATHAN Attending Unavailable DANDY, NATHAN Admitting Unavailable LIZ, DR SURAJ Crowley Consulting Unavailable LIZ, DR SURAJ Crowley Primary Care Unavailable LIZ, DR SURAJ Crowley Attending Unavailable LIZ, DR SURAJ Crowley Admitting Unavailable LIZ, DR SURAJ Crowley Primary Care Unavailable HIGHLANDER, KOLE Silav Attending Unavailable HIGHLANDER, PETER D Admitting Unavailable WEST, DR ZARINA Robles Consulting Unavailable LIZ, DR SURAJ Crowley Primary Care Unavailable HIGHLANDER, KOLE Silva Attending Unavailable HIGHLANDER, PETER D Admitting Unavailable HIGHLANDER, KOLE Silva Consulting Unavailable Zieber, DR James Consulting Unavailable LIZ, DR SURAJ Crowley Primary Care Unavailable HIGHLANDER, KOLE Silva Attending Unavailable HIGHLANDER, PETER D Admitting Unavailable HIGHLANDER, KOLE Silva Consulting Unavailable LIZ, DR SURAJ Crowley Primary Care Unavailable MISC, DR CAROLINA Attending Unavailable MISC, DR CAROLINA Admitting Unavailable DANDY, NATHAN Consulting Unavailable LIZ, DR SURAJ Crowley Primary Care Unavailable DANDY, NATHAN Attending Unavailable DANDY, NATHAN Admitting Unavailable ELTAHAWY, DR JASON Consulting Unavailable LIZ, DR SURAJ Crowley Primary Care Unavailable ELTAHAWY, DR JASON Attending Unavailable ELTAHAWY, DR JASON Admitting Unavailable JERRYASHWIN Consulting Unavailable LIZ, DR SURAJ Crowley Primary Care Unavailable JERRY, ASHWIN Attending Unavailable JERRY, ASHWIN Admitting Unavailable LIZ, DR SURAJ Crowley Primary Care Unavailable HIGHLANDER, KOLE D Attending Unavailable HIGHLANDER, PETER D Admitting Unavailable LIZ, DR SURAJ Crowley Primary Care Unavailable HIGHLANDER, KOLE Silva Attending Unavailable HIGHLANDER, KOLE D Admitting Unavailable ELTAHAWY, DR JASON Consulting Unavailable REQUEST, DR NONE LISTED Primary Care Unavaila ble BRANDEN, DR JASON Attending Unavailable [facility], DR JASON Admitting Unavailable Samuel, Patti Marx Unavailable Unavailable MD Suraj Liz Primary Care Provider MD Suraj Liz Attending Provider Dolce, DPM Ramiro Ino Attending Provider Dolce, DPM Santos R Attending Provider MD Suraj Liz Primary Care Provider Suraj Liz Unavailable MD Ronaldo Arcos Attending Provider Ronaldo Arcos Unavailable MD Suraj Liz Primary Care Provider Dolce, DPM Ramiro Silva Attending Provider Dolce, DPM Santos R Attending Provider [phone] MD Ronaldo Arcos Attending Provider [phone] NON STAFF Primary Care Provider UnavailMD Suraj Davis Attending Provider MD Suraj Liz Primary Care Provider Janet Otero A Attending Provider MD Suraj Liz Primary Care Provider Janet Otero A Attending Provider MD Suraj Liz Primary Care Provider HAMZAH Emery Attending Provider MD Rudy Barr Attending Provider MD Suraj Liz Primary Care Provider Clarissa [facility]ILB[facility], [facility] Primary Care Provider Suraj Liz MD Primary Care Provider Suraj Liz MD Primary Care Provider Suraj Liz MD Primary Care Provider Rudy Barr MD Attending Provider Kole Emery DPM Attending Provider Suraj Liz MD Primary Care Provider Suraj Liz MD Primary Care Provider [phone] [facility] D[facility] Attending Provider Juvencio HEBERT Javon Joaquim Emergency Provider [phone] OJUKWU, Mbanefo Admitting Unavailable Stepan, Raquel Attending Unavailable Lucia Noyola Attending Unavailable FT Wound, XXXX Consulting Unavailable FT Wound, XXXX Consulting Unavailable OJUKWU, Mbanefo Admitting Unavailable OJUKWU, Mbanefo Attending Unavailable [place], Karin Consulting Unavailable [place], Karin Consulting Unavailable [place], Karin Consulting Unavailable [place], Karin Consulting Unavailable [place], Karin Consulting Unavailable [place], Karin Consulting Unavailable [place], Karin Consulting Unavailable [place], Karin Consulting Unavailable [place], Karin Consulting Unavailable BrucevilleMD James Consulting Unavailable Gennari, Raquel Admitting Unavailable [facility] Wound, XXXX Consulting Unavailable Juarez Whyte Attending Unavailable Suraj Liz MD Primary Care Provider [phone] Suraj Liz MD Primary Care Provider Suraj Liz MD Primary Care Provider Jeb Hernandez MD Attending Provider Janet Otero Attending Provider Elsa Benson CMA Attending Provider Unavaila Suraj Mcallister MD Attending Provider Suraj Liz MD Primary Care Provider LAZ ROMO Attending Unavailable LAZ ROMO Referring Unavailable LAZ ROMO Attending Unavailable HOMAR MCNAIR Attending Unavailable KOLE EMERY Referring Unavailable HOMAR MCNAIR Attending Unavailable HOMAR MCNAIR Attending Unavailable Suraj Liz MD Primary Care Provider [phone] Rudy Barr MD Attending Provider Mark Vela Attending Unavailable MD Alejandro Wilson Consulting Unavailable Javon Edwards Admitting Unavailable Javon Edwards Attending Unavailable Steve, Alejandro Consulting Unavailable afa, Alejandro Consulting Unavailable [facility] Wound, XXXX Consulting Unavailable Blank, Ronaldo S Consulting Unavailable Blank, Ronaldo S Consulting Unavailable Blank, Ronaldo S Consulting Unavailable Blank, Ronaldo S Consulting Unavailable Blank, Ronaldo S Consulting Unavailable Blank, Ronaldo S Consulting Unavailable Blank, Ronaldo S Consulting Unavailable Blank, Ronaldo S Consulting Unavailable Blank, Ronaldo S Consulting Unavailable Blank, Ronaldo S Consulting Unavailable BlankCarolD Ronaldo S Consulting Unavailable Dolce, Ramiro D Consulting Unavailable Dolce, DPM Ramiro D Consulting Unavailable Dolce, Ramiro D Consulting Unavailable Dolce, Ramiro D Consulting Unavailable Dolce, Ramiro D Consulting Unavailable Dolce, Ramiro D Consulting Unavailable Dolce, Ramiro D Consulting Unavailable Dolce, Ramiro D Consulting Unavailable Dolce, Ramiro D Consulting Unavailable Dolce, Ramiro D Consulting Unavailable Dolce, Ramiro D Consulting Unavailable Dolce, Ramiro D Consulting Unavailable Javon Edwards Admitting Unavailable Javon Edwards Attending Unavailable [facility] Wound, XXXX Consulting Unavailable Blank, Ronaldo S Consulting Unavailable BlankMarybel Ronaldo S Consulting Unavailable Blank, Ronaldo S Consulting Unavailable Blank, Ronaldo S Consulting Unavailable Blank, Ronaldo S Consulting Unavailable Blank, Ronaldo S Consulting Unavailable Blank, Ronaldo S Consulting Unavailable Blank, Ronaldo S Consulting Unavailable Blank, Ronaldo S Consulting Unavailable Blank, Ronaldo S Consulting Unavailable Suraj Liz MD Primary Care Provider Elsa Benson CMA Attending Provider UnavailRonaldo Cárdenas MD Attending Provider MALATHI DEVINE Attending Unavailable SALAHALDEEN, AYA Admitting Unavailable ELTAHAWY, EHAB Referring Unavailable DELMA ALBA Attending Unavailable ZANDER TERRELL Consulting Unavailable ZANDER, TERRELL Admitting Unavailable ELTAHAWY, EHAB Referring Unavailable KEON GARCIA Referring Unavailable DENISE, MELISSA Referring Unavailable DENISE, MELISSA Attending Unavailable ZANDER TERRELL Admitting Unavailable UNKNOWN, UNKNOWN Referring Unavailable OVITT, JUAN DAVID Referring Unavailable OVITT, JUAN DAVID Referring Unavailable DENISE, MELISSA Referring Unavailable DENISE, MELISSA Referring Unavailable HORANI, TIA Referring Unavailable HORANI, TIA Referring Unavailable HORANI, TIA Referring Unavailable JERRY, ASHWIN Referring Unavailable JUDAH, BLAYNE Referring Unavailable DAMON, JENIFER Attending Unavailable ELTAHAWY, EHAB Attending Unavailable ELTAHAWY, EHAB Attending Unavailable ELTAHAWY, EHAB Attending Unavailable ELTAHAWY, EHAB Attending Unavailable LAZARUS, ALESK Referring Unavailable ZANDER, TERRELL Referring Unavailable SALAHALDEEN, AYA Referring Unavailable OVITT, JUAN DAVID Referring Unavailable ELTAHAWY, EHAB Attending Unavailable ZANDER, TERRELL Referring Unavailable DAMON, JENIFER Referring Unavailable ELTAHAWY, EHAB Attending Unavailable ABUGHARBYEH, AYA Attending Unavailable ELTAHAWY, EHAB Attending Unavailable OVITT, JUAN DAVID Attending Unavailable ABUGHARBYEH, AYA Attending Unavailable OVITT, JUAN DAVID Attending Unavailable DARRIN KHAN Attending Unavailable ESTELLA CHU Attending Unavailab le ABUGHARBYEH, AYA Referring Unavailable ABUGHARBYEH, AYA Attending Unavailable NAZZAL, MUNIER Referring Unavailable NAZZAL, MUNIER Referring Unavailable CARROLL, ADRIENNE Referring Unavailable OVITT, JUAN DAVID Referring Unavailable ELTAHAWY, EHAB Attending Unavailable NILSON, KORINI Attending Unavailable GUNDERSON, MIRELA CHUL Admitting Unavailable ELTAHAWY, EHAB Referring Unavailable ASHWIN EDWARDS Attending Unavailable Suraj Liz MD Primary Care Provider [phone] Elsa Benson CMA Attending Provider Unavaila Suraj Mcallister MD Attending Provider [place], Ehab A Attending Provider [phone] [place], Ehab A Referring Provider Jeb Hernandez MD Attending Provider Kole Emery Attending Unavailable Kole Emery Admitting Unavailable Suraj Liz Primary Care Unavailable Abugharbyeh, Aya Attending Unavailable Abugharbyeh, Aya Admitting Unavailable Suraj Liz Primary Care Unavailable Suraj Liz Primary Care Unavailable [place], Ehab A Referring Unavailable [place], Ehab A Attending Unavailable [place], Ehab A Admitting Unavailable Javon Dennis Attending Unavailable Javon Dennis Admitting Unavailable Suraj Liz Primary Care Unavailable Unavailable Unavailable Unavailable Allergies Allergy ClassificationReported Allergen(s)Allergy TypeDate of OnsetReaction(s) Facility (20 sources)Metoclopramide; Translations: [Metoclopramide]Drug Pvjiesb31-49-0206 Spasmodic movement (finding), Other, Rash, Unknown[facility] ([facility] sources)Polyethylene Glycols; Translations: [POLYETHYLENE GLYCOL]Drug Kvlxypl80-47-7694FuahDaihodlenMercy Health [facility] (20 sources)Polyethylene Glycols; Translations: [polyethylene glycol 3350]Drug Nlpkhyv55-75-6103NommLqqpuvopzMercy Health Fairfield Hospital (20 sources)Potassium Chloride; Translations: [POTASSIUM CHLORIDE]Drug Allergy 89-62-6434JgezSbypnqhvcMercy Health Fairfield Hospital (20 sources)Promethazine; Translations: [Promethazine]Drug Cksswwp30-43-0139 Other, Rash, Unknown, WheezingSelect [facility] (20 sources)Sodium Bicarbonate; Translations: [SODIUM BICARBONATE]Drug Allergy 33-97-6597WmkpTlliemdljMercy Health Fairfield Hospital (20 sources)Sodium Chloride; Translations: [sodium chloride]Drug Allergy 57-14-3962RnjhEmcogkhokMercy Health Fairfield Hospital (20 sources)sodium sulfate; Translations: [SODIUM SULFATE]Drug Zzxkyxe44-10-4963 [facility] (20 sources)Sulfonamides (Antibiotic); Translations: [Sulfa (Sulfonamide Antibiotics)]Allergy to mzmksbcek08-78-1165SqczkyfxUdlMedina Hospital Repository (20 sources)sodium; Translations: [sodium]Allergy to yoepkusyu26-06-1658[facility]Del[facility] (20 sources)POLYETHYLENE GLYCOL 3350 / Potassium Chloride / Sodium Bicarbonate / Sodium Chloride; Translations:[polyethylene glycol electrolyte solution]Drug AllergyrashExecutive Urology of [facility] (20 sources)Sulfonamides (Antibiotic); Translations: [sulfa drugs]Drug allergy rashExecutive [facility]rology of [facility] (20 sources)POLYETHYLENE GLYCOL 3350 / Potassium Chloride / Sodium Bicarbonate / Sodium Chloride / sodium sulfateDrug Gostxtc46-13-8106Plih, UnknownNort [employer] Other (20 sources)Sulfonamides (Antibiotic)Propensity to adverse reactionsUnknownNorth Coast Living Independ[facility] Group Other (20 sources)phenegranPropensity to adverse reactionsZucker Hillside Hospital [facility] Other (20 sources)Iothalamate; Translations: [Reglan]Drug Kckvobq37-48-6255 Comment:twitchingThe [facility] Rep[facility] (20 sources)Levamisole; Translations: [Phenergan]Drug Ezvjunv34-73-1510Ruh [facility] Repository (3 sources)POLYETHYLENE GLYCOL 3350 / Potassium Chloride / Sodium Bicarbonate / Sodium Chloride / sodium sulfateDrug Gblfffs15-90-6611Ujl [facility] Repository (20 sources)Codeine; Translations: [CODEINE]Drug Fvvmgaa19-50-6297KcjnhNlm [facility] Repository (2 sources)Sulfonamides (Antibiotic)Drug allergy (disorder)78-48-1645Rcl [facility] Repository (15 sources)CodeineDrug AllergyUnknoSt. [facility] Other (20 sources)hydrALAZINE; Translations: [HYDRALAZINE]Drug Ldfjbiy80-00-6409 Unknown, [facility] (20 sources)Substance with sulfonamide structure and antibacterial mechanism of action (substance)Drug igvtvhe95-48-3703Syfol, Rash, Unknown, WheezingWhitman Hospital And Medical Center [facility] Other (17 sources)Sulfamethoxazole / Trimethoprim; Translations: [SULFAMETHOXAZOLE-TRIMETHOPRIM]Drug Sdtkqyy68-14-3805EXQE [facility] (3 sources)Metoclopramide; Translations: [METOCLOPRAMIDE HCL]Drug Allergy 67-55-8877SgbYtawirToledo Hospital (3 sources)Food Allergy Formula; Translations: [FOOD ALLERGY FORMULA]Propensity to adverse reactions to gjbc90-72-1580QpnjalwnLazBhmopq Health System (1 source)diazePAM; Translations: [DIAZEPAM]Drug Fzsjxrd86-62-7301NyrhayaufnSelect Medical [facility] (1 source)PEG 3350-ELECTROLYTES; Translations: [PEG 3350-ELECTROLYTES]Propensity to adverse reactions to drug (disorder)01-11-3229UhsptbekkqSelect [facility] Rep[facility] (1 source)CodeineDrug Kgpttzm04-69-4592CoghitxmgKind[facility] Rep[facility] (1 source)hydrALAZINEDrug Bzenhtg52-68-1361QngzohvuiKindred Hospital [facility] Repository Medications Current Medications MedicationDrug Class(es)DatesSig (Normalized)Sig (Original)acetaminophen 325 mg oral tablet (1 source)Start: 64-61-1538pxlz 2 tablets by mouth every six hours as needed for painacetaminophen 325 mg Tab 650 mg = 2 tab(s), Oral, q6hr, PRN Pain, Refills(s) 0 Start Date: 07/27/24 Status: Ordered Repeat number: 1aluminum hydroxide 40 mg/ml / magnesium hydroxide 40 mg/ml / simethicone 4 mg/ml oral suspension (1 source)Start: 13-76-1888ikpk 30 mL by mouth every six hoursAl hydroxide/Mg hydroxide/simethicone 200 mg-200 mg-20 mg/5 mL oral suspension 30 mL, Oral, q6hr Indigestion, Refill(s) 0 Start Date: 07/27/24 Status: Ordered Repeat number: 1 apixaban 5 mg oral tablet (20 sources)Factor Xa InhibitorStart: 71-40-5520khyq 1 tablet by mouth twice dailyApixaban (Eliquis) 5 mg tablet Active 5 MG PO Twice daily July 05, 2024 1:00am Complies with drug therapyStart: 08-16-2022 End: 40-38-4421omrf 1 tablet by mouth twice dailyApixaban 2.5 mg tablet Discontinued 2.5 MG PO Twice daily November 19, 2023 12:00am July 05, 2024 2:37pmStart: 61-75-3133bqng 2 tablets by mouth twice dailyEliquis 5 mg oral tablet 10 mg = 2 tab(s), Oral, BID, Refills(s) 0 Start Date: 12/05/20 Status: OrderedStart: 07-28-2018 End: 20-93-7407cfjy 1 tablet by mouth twice dailyApixaban (Eliquis) 5 mg Tablet Discontinued 5 MG PO Twice daily June 22, 2019 1:00am November 19, 2023 9:04amARIPiprazole 5 mg oral tablet (6 sources)Atypical AntipsychoticStart: 39-95-1962kyln 1 tablet by mouth once dailyAripiprazole 5 mg tablet Active 5 MG PO Daily September 01, 2024 12:00am Complies with drug therapyaspirin 81 mg chewable tablet (20 sources)Platelet Aggregation Inhibitor, Nonsteroidal Anti-inflammatory Drug Start: 36-77-1058nsyd 1 tablet by mouth once dailyAspirin 81 mg tablet,chewable Active 81 MG PO Daily November 19, 2023 12:00am Complies with drug therapyAspirin Low Dose 81 MG EC tablet Activeatorvastatin 80 mg oral tablet (20 sources)HMG-CoA Reductase InhibitorStart: 07-13-3625dscx 1 tablet by mouth once dailyAtorvastatin 80 mg tablet Active 80 MG PO Daily May 01, 2017 1:00am Complies with drug therapyBariatric Multivitamins with 45 mg Iron oral capsule (4 sources)Start: 84-95-0646qjng 1 capsule by mouth three times dailyBariatric Multivitamins with 45 mg Iron oral capsule 1 cap(s), Oral, TID Start Date: 11/02/19 Status: Orderedbumetanide 1 mg oral tablet (20 sources)Loop DiureticStart: 13-37-7387nwsk 1 tablet by mouth twice daily Bumetanide 1 mg tablet Active 3 MG PO Twice daily July 05, 2024 2:38pm Complies with drug therapyStart: 57-52-7331usiz 2 tablets by mouth twice daily bumetanide 1 mg Tab 2 mg = 2 tab(s), Oral, BID, Refills(s) 0 Start Date: 04/14/22 Status: OrderedStart: 05-04-9261ipaxkqvpqu (Bumex) 1 MG tablet Take 3 mg by mouth 04/14/2022 ActiveStart: 06-22-2019 End: 92-51-6049hzlq 0.5 mg by mouth at bedtimeBumex Discontinued 0.5 MG PO Bedtime June 22, 2019 1:00am August 23, 2020 8:08amStart: 02-42-1644rndg 1 tablet by mouth twice dailybumetanide 2 mg Tab 2 mg = 1 tab(s), Oral, BID, Refills(s) 0 Start Date: 07/28/18 Status: OrderedStart: 05-01-2017 End: 67-08-0660qurg 1 tablet by mouth once daily in the morningBumetanide 1 mg tablet Discontinued 1 MG PO Every morning November 19, 2023 9:05am July 05, 2024 2:51pmStart: 05-01-2017 End: 51-63-7525tdhc 2 mg by mouth once daily in the morningBumetanide Discontinued 2 MG PO Every morning May 01, 2017 1:00am November 19, 2023 9:14amtake 1 tablet by mouth every twelve hoursBumetanide 1 MG 1 tablet Orally bid ActivebusPIRone hydrochloride 10 mg oral tablet (20 sources)Start: 90-78-7941epjl 1 tablet by mouth twice dailybusPIRone 10 mg Tab 10 mg = 1 tab(s), Oral, BID, Refills(s) 0 Start Date: 04/14/22 Status: OrderedcefTRIAXone 2000 mg injection (12 sources)Cephalosporin AntibacterialStart: 02-11-2023 End: 16-15-9846stuNLKFWnup 2 g intravenous injection 2,000 mg = 1 EA, IV Piggyback, Daily, X 18 day(s), # 18 EA, Refills(s) 0 Start Date: 02/11/23 Stop Date: 03/01/23 Status: OrderedcefTRIAXone Sodium 2 GM as directed Injection ActivecefTRIAXone Sodium 2 GM as directed Injection Activecholecalciferol 0.05 mg oral capsule (20 sources)Vitamin DStart: 49-74-0222cmuj 1 capsule by mouth once daily cholecalciferol 2000 intl units oral capsule 50 mcg = 1 cap(s), Oral, Daily, # 30 cap(s), Refills(s) 0, Pharmacy: [facility] 1155, 180, cm, 08/13/22 9:23:00 EDT, Height/Length Dosing, 136.5, kg,08/13/22 9:23:00 EDT, Weight Dosing Start Date: 08/15/22 Status: Ordered Quantity: 30.0 Unit: cap(s) Repeat number: 1 Start: 30-63-9111jmjh 1 capsule by mouth once dailycholecalciferol 2000 intl units oral capsule 50 mcg = 1 cap(s), Oral, Daily, # 30 cap(s), Refills(s) 0, Pharmacy: [facility] 1155, 180, cm, 08/13/22 9:23:00 EDT, Height/Length Dosing, 136.5, kg,08/13/22 9:23:00 EDT, Weight Dosing Start Date: 08/15/22 Status: OrderedStart: 08-23-2020 End: 25-01-3727hgct 1 capsule by mouth once dailyCholecalciferol (Vitamin D3) (Vitamin D3) 25 mcg (1,000 unit) Capsule Discontinued 25 MCG PO Daily August 23, 2020 12:00am September 01, 2024 11:31amStart: 96-57-0567yukh 1 tablet by mouth two times weeklycholecalciferol, vitamin D3, 50,000 units tablet Indications: Intestinal malabsorption, unspecifiedtype , Malnutrition, unspecified type ([facility]) , Vitamin D deficiency Take 1 tablet (50,000 Units t otal) by mouth 2 (two) times a week. 24 tablet 10/21/2018 Activetake 1 capsule by mouth once dailyCholecalciferol 50 MCG (2000 UT) 1 capsule Orally Once a day Activeciclopirox (20 sources)ciclopirox olamine (CICLOPIROX TOP) Apply 1 % topically daily. ActiveCiclopirox 1%, tid Not-TakingCiclopirox 1%, tid Activeclindamycin 300 mg oral capsule (2 sources)Lincosamide AntibacterialStart: 26-82-8519gykb 1 capsule by mouth three times dailyclindamycin 300 mg oral cap 300 mg = 1 cap(s), Oral, TID, Refills(s) 0 Start Date: 12/05/20 Status: Orderedcollagenase 0.25 unt/mg topical ointment (9 sources)Collagen-specific EnzymeStart: 85-28-1710Hvhbvvujnvh Clostridium Histo. (Santyl) 250 unit/gram ointment Active 1 APPLIC TOPICAL Daily July 05, 2024 1:00am Complies with drug therapyStart: 62-02-3973Tojltdyzgun Clostridium Histo. (Santyl) 250 unit/gram ointment Active 1 APPLIC TOPICAL .twice a week July 05, 2024 1:00amContinuous Glucose Sensor (FreeStyle Wilbert 2 Sensor) misc (9 sources)Start: 03-07-2024 End: 71-43-4146Jrnpqxjvdv Glucose Sensor (FreeStyle Wilbert 2 Sensor) misc Indications: Type 2 diabetes mellitus with hyperglycemia, unspecified whether lobsterman insulin use ([facility]) Inject 1 kit under the skin every 14 (fourteen) days 6 each 1 03/07/2024 05/30/2024 Activedapagliflozin 10 mg oral tablet (20 sources)Sodium-Glucose Cotransporter 2 InhibitorStart: 04-14-2022 End: 46-83-2436slef 1 tablet by mouth once dailyDapagliflozin Propanediol (Farxiga) 10 mg tablet Active 10 MG PO Daily November 19, 2023 12:00am Complies with drug therapydaridorexant 25 MG Oral Tablet [Quviviq] (20 sources)Start: 03-39-0555voeq 1 tablet by mouth 30 minutes before bedtime Quviviq 25 mg TAKE ONE TABLET BY MOUTH 30 MINUTES BEFORE BEDTIME for 30 Mar, ActiveStart: 63-32-7586dkjf 1 tablet by mouth 30 minutes before bedtime Quviviq 25 mg TAKE ONE TABLET BY MOUTH 30 MINUTES BEFORE BEDTIME for 30 Jan, ActiveStart: 16-65-1506Rheto: 43-60-9005ifzo 1 tablet by mouth 30 minutes before bedtimeQuviviq 25 mg TAKE ONE TABLET BY MOUTH 30 MINUTES BEFORE BEDTIME for 30 Nov, ActiveStart: 63-33-5501tebw 1 tablet by mouth 30 minutes before bedtimeQuviviq 25 mg TAKE ONE TABLET BY MOUTH 30 MINUTES BEFORE BEDTIME for 30 Oct, ActiveStart: 47-51-9546vlxj 1 tablet by mouth 30 minutes before bedtimeQuviviq 25 mg TAKE ONE TABLET BY MOUTH 30 MINUTES BEFORE BEDTIME for 30 September, ActiveStart: 22-79-2366eooq 1 tablet by mouth at bedtime as neededQuviviq 25 mg oral tablet 25 mg = 1 tab(s), Oral, Bedtime, PRN Insomnia, Refills(s) 0 Start Date: 08/13/22 Status: Ordered Repeat number: 1Start: 25-59-0240cgga 1 tablet by mouth at bedtime as neededQuviviq 25 mg oral tablet 25 mg = 1 tab(s), Oral, Bedtime, PRN Insomnia, Refills(s) 0 Start Date: 08/13/22 Status: OrderedStart: 93-96-6721Cgcgvhc 25 MG 1 tablet within 30 minutes of bedtime Orally Once a day for 30 days Jul, ActiveStart: 06-30-2022 Quviviq 25 MG 1 tablet within 30 minutes of bedtime Orally Once a day for 30 days Instead of zolpidem Jun, ActiveDaridorexant HCl 25 MG (3 sources)Daridorexant HCl 25 MG 1 tablet within 30 minutes of bedtime Orally Once a day ActiveDextrose 50% Soln-IV (1 source)Start: 73-18-5407xlrs 25 g intravenously onceDextrose 50% Soln-IV 25 gm, 50 mL, IV Push, Once Blood glucose, Refill(s) 0 Start Date: 07/27/24 Status: Ordered Repeat number: 1diabetic shoes (2 sources)Start: 55-57-6924ttqjxdcv shoes Active 0 .Route .MEDSUPPLY 1 February 08, 2025 11:31am Ulcer of lower extremity due to diabetes mellitus Diabetic neuropathy associated with type 2 diabetes mellitus Pressure injury, stage 4 Type 2 diabetes mellitus with other skin ulcer Type 2 diabetes mellitus with diabetic polyneuropathy Pressure ulcer of unspecified site, stage 4 As directedStart: 02-08-2025 End: 88-80-3481rldugxyj shoes Discontinued 0 .Route .MEDSUPPLY 1 February 08, 2025 12:00am February 08, 2025 11:32am Ulcer of lower extremity due to diabetes mellitus 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 Activediclofenac sodium 0.01 mg/mg topical gel (20 sources)Nonsteroidal Anti-inflammatory DrugStart: 24-53-8766zkoju 2 g topically four times dailyDiclofenac Sodium 1 % gel Active 2 GM TOPICAL Four times daily July 05, 2024 1:00am Complies with drug therapyStart: 00-15-3085qfngj 2 g topically four times dailyDiclofenac Sodium 1 % gel Active 2 GM TOPICAL Four times daily July 05, 2024 1:00amStart: 30-28-5182pmfnq 2 g topically four times dailyDiclofenac Sodium 1 % gel Active 2 GM TOPICAL Four times daily July 05, 2024 12:00amStart: 49-58-0262nodybyrpfh sodium 1 % gel 05/20/2022 ActiveStart: 29-36-8405wxmnmqgxwx 2-4gm Q4-6 hours to bilateral knees, Refills(s) 0 Start Date: 04/14/22 Status: OrderedDiclofenac ActiveVoltaren 1 % as directed Externally cream Activedocusate sodium 100 mg oral capsule (3 sources)Start: 05-24-2022 End: 56-79-5514zglu 1 capsule by mouth twice dailyColace 100 mg Cap 100 mg = 1 cap(s), Oral, BID, X 14 day(s), # 28 cap(s), Refills(s) 0, Pharmacy: [facility] [id number], 180.3, cm, 05/22/22 6:47:00 EST, Height/Length Dosing, 136.5, kg, 05/22/22 6:47:00 EST, Weight Dosing Start Date: 05/24/22 Stop Date: 06/07/22 Status: Orderedentecavir 0.5 mg oral tablet (6 sources)Hepatitis B Virus Nucleoside Analog Reverse Transcriptase Inhibitor Start: 68-37-1952cobf 1 tablet by mouth once dailyEntecavir 0.5 mg tablet Active 0.5 MG PO Daily September 01, 2024 12:00am Complies with drug therapyertapenem 1000 mg injection (4 sources)Penem AntibacterialStart: 08-18-2022 End: 44-63-5623bvukrr 1 g intravenously once dailyInvanz 1 g Injection 1 gm, IV, Daily, give via PICC line, X 42 day(s), # 42 EA, Refills(s) 0 Start Date: 08/18/22 Stop Date: 09/29/22 Status: Orderederythromycin 0.005 mg/mg ophthalmic ointment (7 sources)Macrolide, Macrolide AntimicrobialStart: 48-19-4301Ufostuyjlujt 5 mg/gram (0.5 %) ointment Active 1 APPLIC EYE-BOTH Daily August 04, 2024 12:00am Complies with drug therapyStart: 27-92-2187Aambeagvchov 5 mg/gram (0.5 %) ointment Active 1 APPLIC EYE-BOTH Daily August 04, 2024 12:00amStart: 01-63-9803zcbfvyvatylw ophthalmic 1 raymon, Eye-Right, Daily, Refill(s) 0, apply thin later to R eye each evening Start Date: 07/26/24 Status: Ordered Repeat number: 1eszopiclone 2 mg oral tablet (11 sources)take 1 tablet by mouth every twenty-four hoursLunesta 2 MG 1 tablet immediately before bedtime Orally Once a day Activefluticasone propionate 0.05 mg/actuat metered dose nasal spray (20 sources)CorticosteroidStart: 04-78-5239Wnnzcltrbdt Propionate 50 mcg/actuation spray,suspension Active 0 .ROUTE .COMPLEX 16 2 August 29, 2024 2:03pm INSTILL 2 SPRAYS VIA NASAL ROUTE DAILY Complies with drug therapyStart: 11-19-2023 End: 58-30-5629zewm 1 spray(s) nasal route once dailyFluticasone Propionate (Allergy Relief (Fluticasone)) 50 mcg/actuation spray,suspension Discontinued 1 SPRAY INTRANASAL Daily November 19, 2023 12:00am August 29, 2024 2:03pm administer into each nostrilStart: 72-48-9019whlkataghnb Nasal 0.05 mg/inh Universal 2 spray(s), Nasal, Daily Allergy symptoms, 16 gram, Refill(s) 0,each nostril Start Date: 08/13/22 Status: Ordered Quantity: 16.0 Unit: g Repeat number: 1Start: 23-24-4025fcmxlmgvddi Nasal 0.05 mg/inh Universal 2 spray(s), Nasal, Daily Allergy symptoms, 16 gram, Refill(s) 0,each nostril Start Date: 08/13/22 Status: Ordered Start: 20-61-0347ftskowuqwbk (FLONASE) 50 mcg/actuation nasal spray Administer 1 spray into each nostril as needed. 03/08/2016 ActiveFluticasone Propionate Activefluticasone / salmeterol (20 sources)Corticosteroid, beta2-Adrenergic AgonistStart: 30-59-0766aztr 1 puff(s) by inhalation twice dailyAdvair 250 mcg-50 mcg Powder 1 puff(s), Inhalation, BID, COPD Start Date: 07/28/18 Status: Ordered Repeat number: 1Start: 63-22-7780zabr 1 puff(s) by inhalation twice dailyAdvair 250 mcg-50 mcg Powder 1 puff(s), Inhalation, BID, COPD Start Date: 07/28/18 Status: Orderedfolic acid 1 mg oral tablet (13 sources)Start: 04-11-2024 End: 78-52-1554pyny 1 tablet by mouth once dailyFolic Acid 1 mg tablet Active 1 MG PO Daily July 05, 2024 1:00am Complies with drug therapygabapentin 600 mg oral tablet (20 sources)Anti-epileptic AgentStart: 06-06-2024 End: 38-72-8279mmmd 1 tablet by mouth three times dailyGabapentin 600 mg tablet Active 0 .ROUTE .COMPLEX 84 11 September 29, 2024 8:20am TAKE ONE TABLET BY MOUTH THREE TIMES A DAY Complies with drug therapyStart: 03-04-2024 End: 27-91-6601yfmx 1 tablet by mouth three times dailyGabapentin 600 mg tablet Discontinued 600 MG PO Three times daily 90 0 May 12, 2024 9:22am June 06, 2024 9:19amStart: 09-24-2023 End: 40-52-5452dxkh 1 tablet by mouth three times dailyGabapentin 800 mg tablet Discontinued 0 .ROUTE .COMPLEX 84 1 February 11, 2024 9:04am February 3:40pm TAKE ONE TABLET BY MOUTH THREE TIMES A DAYStart: 07-28-2018 End: 31-36-0632sfuj 1 tablet by mouth three times dailyGabapentin 800 mg tablet Discontinued 800 MG PO Three times daily June 22, 2019 1:00am September 24, 2023 10:56amhydrALAZINE (20 sources)Arteriolar VasodilatorStart: 30-55-5364jlpo 10 mg intravenously every four hours as neededhydrALAZINE 10 mg = 0.5 mL, IV Push, q4hr, PRN Other (see comment), Refills(s) 0 Start Date: 07/27/24 Status: Ordered Repeat number: 1 Start: 05-01-2017 End: 91-30-7087Ldsuwzjjovv 10 mg tablet Discontinued May 01, 2017 1:00am June 22, 2019 2:31pmStart: 05-01-2017 End: 46-00-3836Hnffcacjgtp 10 mg tablet Discontinued TABLET May 01, 2017 1:00am June 22, 2019 2:31pmStart: 05-01-2017 End: 42-57-5890Clwqkwdvwts Discontinued TABLET May 01, 2017 1:00am June 22, 2019 2:31pmhydrOXYzine hydrochloride 25 mg oral tablet (20 sources)AntihistamineStart: 81-62-6534tddw 1 tablet by mouth every eight hourshydrOXYzine HCl 25 MG 1 tablet as needed Orally every 8 hrs for 30 day(s) Apr, ActiveStart: 23-97-1845rfsg 1 capsule by mouth three times daily Vistaril 50 mg Cap 50 mg = 1 cap(s), Oral, TID, Refills(s) 0, Agitation Start Date: 07/28/18 Status:Orderedinsulin glargine 100 unt/ml injectable solution (20 sources)Insulin AnalogStart: 90-04-8298sexmkb 30 [IU] by subcutaneous injection twice dailyInsulin Glargine (Lantus U-100 Insulin) 100 unit/mL solution Active 30 UNIT SUBCUT Twice daily 2023 12:00am Complies with drug therapyStart: 04-15-2022 End: 56-64-0334rjaaaqr glargine 100 units/mL SubQ Modesta 10 mL 30 unit(s) = 0.3 mL, Injection-Insulin, SubCutaneous, Start date 04/15/22 21:00:00 EST, 04/15/22 9:22:00 EST Start Date: 04/15/22 Stop Date: 04/15/22 Status: CompletedStart: 86-92-1980kjtzpt 30 [IU] by subcutaneous injection twice dailyLantus 100 units/mL Injection-Insulin 30 unit(s), SubCutaneous, BID, Blood glucose Start Date: 11/02/19 Status: OrderedStart: 06-22-2019 End: 73-19-1094rttglh 20 [IU] by subcutaneous injection once daily at bedtime Insulin Glargine (Lantus U-100 Insulin) 100 unit/mL Solution Discontinued 20 UNIT SUBCUT Daily at bedtime June 22, 2019 1:00am August 23, 2020 8:20am Lantus SoloStar 100 UNIT/ML pen ActiveLantus SoloStar 100 UNIT/ML pen INJECT 26 unit SUBCUTANEOUSLY EVERY DAY Activeinject 30 [IU] by subcutaneous injection twice dailyLantus 100 UNIT/ML 30 units Subcutaneous twice a day Activeinject 30 [IU] by subcutaneous injection twice dailyLantus 100 UNIT/ML 30 units Subcutaneous twice a day ActiveLantus SoloStar 100 UNIT/ML 30 units Subcutaneous twice daily for 30 day(s) E11.4 ActiveInsulin Glargine (Lantus U-100 Insulin) 100 unit/mL solution (11 sources)Start: 27-80-1966xkhjhl 30 [IU] by subcutaneous injection twice dailyInsulin Glargine (Lantus U-100 Insulin) 100 unit/mL solution Active 30 UNIT SUBCUT Twice daily 2023 11:00pmStart: 20-41-8293bpmbny 30 [IU] by subcutaneous injection twice dailyInsulin Glargine (Lantus U-100 Insulin) 100 unit/mL solution Active 30 UNIT SUBCUT Twice daily 2023 12:00amInsulin Lispro (20 sources)Insulin AnalogStart: 52-67-1276uvherhf lispro 0-10 Unit(s), SubCutaneous, QIDACHS, Refills(s) 0 Start Date: 07/27/24 Status: Ordered Repeat number: 1Start: 01-14-2023 End: 24-82-8951Agrvped Lispro Sliding Scale 0-10 Unit(s), Injection-Insulin, SubCutaneous, Start date 01/14/23 21:00:00 EDT Start Date: 01/14/23 Stop Date: 01/14/23 Status: CompletedStart: 01-13-2023 End: 64-21-4756Fryfnlr Lispro Sliding Scale 0-10 Unit(s), Injection-Insulin, SubCutaneous, Start date 01/13/23 16:30:00 EDT Start Date: 01/13/23 Stop Date: 01/13/23 Status: CompletedStart: 01-13-2023 End: 87-63-4676Xztoaca Lispro Sliding Scale 0-10 Unit(s), Injection-Insulin, SubCutaneous, Start date 01/13/23 11:30:00 EDT Start Date: 01/13/23 Stop Date: 01/13/23 Status: CompletedStart: 08-14-2022 End: 44-80-0239Hmzuosy Lispro Sliding Scale 0-10 Units, Injection-Insulin, SubCutaneous, Start date 08/14/22 21:00:00 EDT Start Date: 08/14/22 Stop Date: 08/14/22 Status: CompletedStart: 08-14-2022 End: 77-90-0450Ijdfbrk Lispro Sliding Scale 0-10 Units, Injection-Insulin, SubCutaneous, Start date 08/14/22 16:30:00 EDT Start Date: 08/14/22 Stop Date: 08/14/22 Status: CompletedStart: 06-23-2022 End: 69-23-0083Yttpmvp Lispro Sliding Scale 0-10 Units, Injection-Insulin, SubCutaneous, Start date 06/23/22 11:30:00 EST Start Date: 06/23/22 Stop Date: 06/23/22 Status: CompletedStart: 06-23-2022 End: 53-08-0045Dwfqvci Lispro Sliding Scale 0-10 Units, Injection-Insulin, SubCutaneous, Start date 06/23/22 7:30:00 EST Start Date: 06/23/22 Stop Date: 06/23/22 Status: CompletedStart: 04-15-2022 End: 68-36-0722Fksqdmg Lispro Sliding Scale 0-10 Units, Injection-Insulin, SubCutaneous, Start date 04/15/22 21:00:00 EST Start Date: 04/15/22 Stop Date: 04/15/22 Status: CompletedStart: 04-15-2022 End: 25-04-1983Hzliuxg Lispro Sliding Scale 0-10 Units, Injection-Insulin, SubCutaneous, Start date 04/15/22 16:30:00 EST Start Date: 04/15/22 Stop Date: 04/15/22 Status: CompletedStart: 12-02-2021 End: 50-87-1554Ijjucor Lispro Sliding Scale 0-10 Units, Injection-Insulin, SubCutaneous, Start date 12/02/21 16:30:00 EDT Start Date: 12/02/21 Stop Date: 12/02/21 Status: CompletedStart: 12-02-2021 End: 07-39-9122Safjbct Lispro Sliding Scale 0-10 Units, Injection-Insulin, SubCutaneous, Start date 12/02/21 11:30:00 EDT Start Date: 12/02/21 Stop Date: 12/02/21 Status: CompletedStart: 12-02-2021 End: 88-43-0488Bkylakz Lispro Sliding Scale 0-10 Units, Injection-Insulin, SubCutaneous, Start date 12/02/21 7:30:00 EDT Start Date: 12/02/21 Stop Date: 12/02/21 Status: CompletedHumaLOG KwikPen 200 UNIT/ML 5 units with lunch and dinner, plus 1:40 scale, up to 35 units daily Subcutaneous four times daily for 30 day(s) Vvkmxv67 hr isosorbide mononitrate 30 mg extended release oral tablet (20 sources)Nitrate VasodilatorStart: 58-70-6018Dchwewsoaa Mononitrate 30 mg tablet extended release 24 hr Active 90 MG PO Daily July 05, 2024 2:42pm Complies with drug therapyStart: 03-08-2016 End: 86-17-4885kecz 1 tablet by mouth once daily, then take 1 tablet by mouth every twenty-four hoursIsosorbide Mononitrate 30 mg tablet extended release 24 hr Discontinued 30 MG PO Daily May 01, 2017 1:00am July 05, 2024 2:51pmammonium lactate 120 mg/ml topical cream (20 sources)Start: 64-42-5721zivblpzq lactate Top 12% Crm Topical, BID, Refill(s) 0 Start Date: 12/05/20 Status: OrderedStart: 16-59-7856iglufseg lactate Top 12% Crm Topical, BID, Refill(s) 0 Start Date: 12/05/20 Status: OrderedStart: 05-01-2017 End: 56-03-9978Rzlhmfhb Lactate 12 % cream Discontinued May 01, 2017 1:00am June 22, 2019 2:32pmStart: 05-01-2017 End: 18-43-3444Nxjrqlur Lactate Discontinued May 01, 2017 1:00am June 22, 2019 2:32pmammonium lactate (LAC-HYDRIN) 12 % lotion Apply topically. ActiveAmmonium Lactate 12 % 1 application Externally Twice a day Active lamoTRIgine 25 mg oral tablet (6 sources)Mood Stabilizer, Anti-epileptic AgentStart: 98-23-9960qfwl 2 tablets by mouth once dailyLamotrigine 25 mg tablet Active 50 MG PO Daily September 01, 2024 12:00am Complies with drug therapyLantus 100 units/mL Injection-Insulin (1 source)Start: 34-46-7467nmfoxv 30 [IU] by subcutaneous injection twice daily Lantus 100 units/mL Injection-Insulin 30 unit(s), SubCutaneous, BID, Blood glucose Start Date: 11/02/19 Status: OrderedlevoFLOXacin 500 mg oral tablet (2 sources)Quinolone AntimicrobialStart: 76-26-3100rvho 1 tablet by mouth every twenty-four hourslevofloxacin 500 mg Tab 500 mg = 1 tab(s), Oral, q24hr, Refills(s) 0 Start Date: 12/05/20 Status: Orderedlidocaine 0.05 mg/mg medicated patch (5 sources)Antiarrhythmic, Amide Local AnestheticStart: 41-48-8421gjyke 1 dose topically once dailyLidocaine 5 % adhesive patch,medicated Active 2 PATCH TOPICAL Daily 15 0 September 06, 2024 12:00am leave on most painful area for up to 12 hrs Complies with drug therapylinezolid 600 mg oral tablet (17 sources)Oxazolidinone AntibacterialStart: 63-52-2966lhtc 1 tablet by mouth every twelve hourslinezolid (Zyvox) 600 MG tablet Take 600 mg by mouth every 12 (twelve) hours 01/15/2023 ActiveStart: 01-15-2023 End: 70-02-7804tknw 1 tablet by mouth every twelve hourslinezolid 600 mg Tab 600 mg = 1 tab(s), Oral, q12hr, X 10 day(s), # 20 tab(s), Refills(s) 0 Start Date: 01/15/23 Stop Date: 01/25/23 Status: Orderedlurasidone hydrochloride 60 mg oral tablet (11 sources)Atypical AntipsychoticStart: 00-59-3611lnlt 1 tablet by mouth once dailyLatuda 60 mg oral tablet 60 mg = 1 tab(s), Oral, Daily, Refills(s) 0 Start Date: 06/18/22 Status: OrderedStart: 56-15-0822yqre 1 tablet by mouth once daily Latuda 20 mg oral tablet 20 mg = 1 tab(s), Oral, Daily, # 30 tab(s), Refills(s) 0 Start Date: 04/14/22 Status: Orderedmelatonin 3 mg oral tablet (1 source)Start: 99-97-8288dvxr 1 tablet by mouth at bedtime as neededmelatonin 3 mg Tab 3 mg = 1 tab(s), Oral, Bedtime, PRN Insomnia, Refills(s) 0 Start Date: 07/27/24 Status: Ordered Repeat number: 1metFORMIN hydrochloride 500 mg oral tablet (20 sources)BiguanideStart: 09-01-2024 End: 27-73-4667lves 1 tablet by mouth twice dailyMetformin 500 mg tablet Active 500 MG PO Twice daily September 01, 2024 12:00am Complies with drug therapyStart: 05-20-2022 End: 88-14-8951xveu 1 tablet by mouth twice dailyMetformin 500 mg tablet Discontinued 500 MG PO Twice daily November 19, 2023 12:00am August 04, 2024 8:44amStart: 02-23-2016 End: 18-95-7521ghtn 1 tablet by mouth twice dailyMetformin 1,000 mg tablet Discontinued 1000 MG PO Twice daily June 22, 2019 1:00am November 9:10ammetFORMIN HCl 1000 TAKE ONE TABLET BY MOUTH TWICE DAILY WITH MEALS orally bid for 30 day(s) Activemethotrexate 2.5 mg oral tablet (20 sources)Folate Analog Metabolic InhibitorStart: 21-61-9868Vgfoedmtkdnr Sodium 2.5 mg tablet Active 0 PO every week August 04, 2024 8:41am 17.5mg orally every week; Complies with drug therapyStart: 07-05-2024 End: 73-00-8510ijmy 1 tablet by mouth every weekMethotrexate Sodium 2.5 mg tablet Discontinued 2.5 MG PO every week July 05, 2024 1:00am August 04, 2024 8:45amStart: 01-27-2024 End: 84-48-5255zzzs 7 tablets by mouth every weekmethotrexate 2.5 MG tablet Take 7 tablets by mouth 1 (one) time per week. 01/27/2024 01/26/2025 Active metOLazone 5 mg oral tablet (13 sources)Thiazide-like DiureticStart: 90-05-6902uaqv 1 tablet by mouth once dailymetOLazone (ZAROXOLYN) 5 mg tablet Take 5 mg by mouth daily. 01/08/2016 Fjfcvh73 hr metoprolol succinate 25 mg extended release oral tablet (8 sources)beta-Adrenergic BlockerStart: 08-55-2399bqih 1 tablet by mouth every twenty-four hoursMetoprolol Succinate 25 mg tablet extended release 24 hr Active 25 MG PO Once July 13, 2024 1:00am Complies with drug therapymidodrine hydrochloride 5 mg oral tablet (16 sources)alpha-Adrenergic Agonistmidodrine (Proamatine) 5 MG tablet Active moxifloxacin 5 mg/ml ophthalmic solution (20 sources)Quinolone AntimicrobialStart: 99-90-9275yogfdeokvtlk 0.5% Opth Modesta 1 drop(s), OPTH, q2hr, 3 mL, Refill(s) 0 Start Date: 07/26/24 Status: Ordered Quantity: 3.0 Unit: mL Repeat number: 1Start: 19-16-3255dvwsefwfwznm (Vigamox) 0.5 % ophthalmic solution Administer 1 drop into both eyes in the morning and 1 drop at noon and 1 drop in the evening and 1 drop before bedtime. 12/29/2023 ActiveStart: 95-83-7399iuiu 1 drop(s) into the eye(s) every two hours Moxifloxacin 0.5 % drops Active 1 DROPS EYE-BOTH Every 2 hours December 29, 2023 12:00am Complies with drug therapyStart: 60-35-5820sfma 1 drop(s) into the eye(s) every two hoursMoxifloxacin 0.5 % drops Active 1 DROPS EYE-BOTH Every 2 hours December 29, 2023 12:00amStart: 13-57-8208opon 1 drop(s) into the eye(s) four times dailyMoxifloxacin 0.5 % drops Active 1 DROPS EYE-BOTH Four times daily December 29, 2023 12:00amStart: 02-99-8240kall 1 drop(s) into the eye(s) four times dailyMoxifloxacin Active 1 DROPS EYE-BOTH Four times daily December 29, 2023 12:00amMulti Vitamins oral tablet (20 sources)Start: 59-69-8951Fyygo Vitamins oral tablet 1 tab(s), Oral, Daily, 30 tab(s), Refill(s) 0 Start Date: 05/20/22 Status: Ordered Quantity: 30.0 Unit: tab(s) Repeat number: 1Start: 24-50-2729Shvgp Vitamins oral tablet 1 tab(s), Oral, Daily, 30 tab(s), Refill(s) 0 Start Date: 05/20/22 Status: Ordered Multivitamin preparation (20 sources)take 1 tablet by mouth once dailyMultivitamin - 1 tablet Orally Once a day Activenaloxone 2 mg/ 2 mL Inj Syringe (20 sources)Start: 99-94-8656zrvnkbdt 2 mg/ 2 mL Inj Syringe 2 mg, Nasal, As Directed, . (2 syringes with nasal administration devices. ), # 1 kit(s), Refills(s) 0 Start Date: 05/20/22 Status: OrderedNitro 0.4 mg Tab (20 sources)Start: 30-37-7196Fqexx 0.4 mg Tab = 1 tab(s), SubLingual, q5min, PRN Chest pain Start Date: 07/28/18 Status: Ordered Repeat number: 1Start: 96-47-7419Iotpb 0.4 mg Tab = 1 tab(s), SubLingual, q5min, PRN Chest pain Start Date: 07/28/18 Status: Orderednitroglycerin 0.4 mg sublingual tablet (20 sources)Nitrate VasodilatorStart: 61-75-4134Nsdnnbxguchiw 0.4 mg Tablet, Sublingual Active 0.4 MG SUBLINGUAL every 5 to 15 minutes as needed for Chest Pain June 22, 2019 1:00am Complies with drug therapyStart: 96-12-6293Kmsoc 0.4 mg Tab = 1 tab(s), SubLingual, q5min, PRN Chest pain Start Date: 07/28/18 Status: OrderedNitroglycerin 0.4 MG as directed Sublingual ActiveNormal saline (13 sources)Saline Activeondansetron 4 mg disintegrating oral tablet (20 sources)Serotonin-3 Receptor AntagonistStart: 12-05-2024 End: 20-66-6413dmns 1 tablet by mouth every eight hours as needed for nausea and vomitingOndansetron 4 mg tablet,disintegrating Active 4 MG PO Every 8 hours as needed for nausea and vomiting 30 0 February 23, 2025 1:19pm Complies with drug therapyStart: 12-05-2024 End: 79-33-0553iqcs 1 tablet by mouth every twelve hours as neededOndansetron Hcl 8 mg tablet Discontinued 8 MG PO Every 12 hours as needed December 05, 2024 12:00am December 05, 2024 1:48pmStart: 11-19-2023 End: 34-23-9436thxp 1 tablet by mouth once daily as needed for nausea and vomitingOndansetron 8 mg tablet,disintegrating Discontinued 8 MG PO Daily as needed for nausea and orgxybif57 March 04, 2024 3:22pm September 01, 2024 11:31amStart: 06-22-2019 End: 54-90-0904vfdo 1 tablet by mouth every eight hours as needed for nausea Ondansetron Hcl 8 mg tablet Discontinued 8 MG PO Every 8 hours as needed for Nausea June 22, 2019 1:00am November 19, 2023 9:13amStart: 53-54-6609abaq 1 tablet by mouth three times daily as needed for nauseaZofran 8 mg Tab 8 mg = 1 tab(s), Oral, TID, PRN Nausea/Vomiting, Nausea Start Date: 07/28/18 Status: Ordered Repeat number: 1take 1 tablet by mouth every eight hours as needed ondansetron (ZOFRAN) 4 mg tablet Take 4 mg by mouth every 8 (eight) hours as needed. Activetake 1 tablet by mouth four times daily as neededOndansetron HCl 8 mg TAKE ONE TABLET BY MOUTH FOUR TIMES A DAY NEEDED for 40 Activetake 1 tablet by mouth once daily as neededOndansetron 8 MG 1 tablet on the tongue and allow to dissolve as needed Orally Once a day ActiveOne Touch Glucometer (20 sources)Start: 56-40-4933Zygfe: 99-87-2280Bua Touch Glucometer 1 subcutaneously use as directed for 30 day(s) Jul, ActiveoxyCODONE hydrochloride 10 mg oral tablet (20 sources)Opioid AgonistStart: 64-94-2556dnyr 1 tablet by mouth every four hours as neededOxycodone 10 mg tablet Active 10 MG PO Every 4 hours as needed August 04, 2024 12:00am Complies with drug therapyStart: 57-85-2023kisl 1 capsule by mouth every twelve hours in the morningXtampza ER 18 MG 12 hr abuse- deterrent capsule Take 18 mg by mouth in the morning and 18 mg before bedtime. 03/28/2024 ActiveStart: 12-05-2020 End: 86-35-8243whnh 1 capsule by mouth every six hoursOxycodone 5 mg capsule Discontinued 5 MG PO Every 6 hours 0 November 19, 2023 12:00am August 04, 2024 8:38amStart: 35-67-3288ikoe 1 capsule by mouth twice dailyOxycodone Myristate (Xtampza Er) 18 mg Cap,Sprinkl,Er12hr(Dont Crush) Active 18 MG PO Twice daily Ap 2020 12:00am Complies with drug therapyStart: 46-87-2729uxml 1 tablet by mouth every twelve hoursOxyCONTIN 20 mg Tab-ER 20 mg = 1 tab(s), Oral, q12hr, Refills(s) 0, Pain Start Date: 11/02/19 Status: OrderedStart: 55-75-0038fpry 1 tablet by mouth every twelve hoursOxyCONTIN 20 mg Tab-ER 20 mg = 1 tab(s), Oral, q12hr, Refills(s) 0, Pain Start Date: 11/02/19 Status: OrderedStart: 06-22-2019 End: 89-55-9242dhqj 1 tablet by mouth every twelve hours, then take 10 mg by mouth every hourOxycodone (Oxycontin) 10 mg Tablet,Oral Only,Ext.Rel.12 Hr Discontinued 20 MG PO Q12H June 22, 2019 1:00am November 19, 2023 9:11am Start: 96-30-0037GRVSIFONH 40 mg 12 hr tablet TAKE 1 TABLET EVERY 12 HOURS FOR 30 DAYS 0 08/16/2018 ActiveStart: 05-01-2017 End: 35-60-8573Kxdcvdfri 30 mg tablet Discontinued May 01, 2017 1:00am June 22, 2019 2:26pmStart: 03-09-2016 End: 99-87-4903Lkhvqarip 30 mg tablet Discontinued TABLET May 01, 2017 1:00am June 22, 2019 2:26pmtake 1 tablet by mouth every eight hours oxyCODONE HCl 5 MG 1 tablet Orally three times a day Activetake 2 tablets by mouth every six hours as neededoxyCODONE HCl 15 MG 2 Tablet Orally every 6 hours as needed 40 mg 1 tablet/bid 18 Mg ActiveOzempic (1 mg dose) (1 source)Start: 75-53-0032cvdwrl 1 mg by subcutaneous injection every week Ozempic (1 mg dose) See Instructions, 1 mg subcutaneous weekly (Thursday), Refills(s) 0 Start Date: 07/23/24 Status: Ordered Repeat number: 1pantoprazole 40 mg delayed release oral tablet (20 sources)Proton Pump InhibitorStart: 12-06-2024 End: 12-67-1490dfsz 1 tablet by mouth once dailyPantoprazole 40 mg tablet,delayed release (DR/EC) Active 40 MG PO Daily February 20, 2025 3:12pm Complies with drug therapyStart: 06-22-2019 End: 06-19-0982ylfd 1 tablet by mouth once dailyPantoprazole 40 mg Tablet,Delayed Release (Dr/Ec) Discontinued 40 MG PO Daily June 22, 2019 1:00am August 23, 2020 8:18amprednisoLONE acetate 10 mg/ml ophthalmic suspension (15 sources)CorticosteroidStart: 78-23-8584ikik 1 drop(s) into the eye(s) twice dailyprednisoLONE acetate 1% preservative-free ophthalmic suspension 1 drop, Eye-Both, BID, Refill(s) 0 Start Date: 07/26/24 Status: Ordered Repeat number: 1 Start: 12-29-2023 End: 29-84-9542qpno 1 drop(s) into the eye(s) twice dailyPrednisolone Acetate 1 % drops,suspension Discontinued 1 DROPS EYE-BOTH Twice daily December 29, 2023 12:00am September 01, 2024 11:31amStart: 12-29-2023 End: 30-29-1291ppil 1 drop(s) into the eye(s) twice dailyPrednisolone Acetate 1 % drops,suspension Discontinued 1 DROPS EYE-BOTH Twice daily December 29, 2023 12:00am September 01, 2024 11:31amStart: 15-86-8975yowu 1 drop(s) into the eye(s) four times dailyPrednisolone Acetate 1 % drops,suspension Active 1 DROPS EYE- BOTH Four times daily December 29, 2023 12:00amStart: 70-04-9586xaoi 1 drop(s) into the eye(s) four times dailyPrednisolone Acetate Active 1 DROPS EYE-BOTH Four times daily December 29, 2023 12:00amprenatal vit 10-iron fum-folic 65-1 mg tablet (2 sources)Start: 46-80-6947cqpm 1 tablet by mouth once dailyprenatal vit 10- iron fum-folic 65-1 mg tablet Indications: Intestinal malabsorption, unspecified type , Malnutrition, unspecified type ([facility]) Take 1 tablet by mouth daily. 90 tablet 3 12/20/2018 Activeprimidone 50 mg oral tablet (2 sources)Anti-epileptic Agenttake 1 tablet by mouth once dailyprimidone (MYSOLINE) 50 mg tablet Take 50 mg by mouth nightly. Activepyridostigmine bromide 60 mg oral tablet (2 sources)pyridostigmine (MESTINON) 30 mg tablet Take 60 mg by mouth. Active Quviviq 25 mg oral tablet (8 sources)Start: 89-65-2689przz 1 tablet by mouth at bedtime as neededQuviviq 25 mg oral tablet 25 mg = 1 tab(s), Oral, Bedtime, PRN Insomnia, Refills(s) 0 Start Date: 08/13/22 Status: Orderedquviviq 25 mg tablet (9 sources)Start: 52-22-0274rlmz 1 tablet by mouth 30 minutes before bedtime Quviviq 25 mg TAKE ONE TABLET BY MOUTH 30 MINUTES BEFORE BEDTIME for 30 30 May, 2023 ActiveStart: 84-15-4211dmmk 1 tablet by mouth 30 minutes before bedtime Quviviq 25 mg TAKE ONE TABLET BY MOUTH 30 MINUTES BEFORE BEDTIME for 30 30 Apr, 2023 ActiveStart: 26-84-6970ervq 1 tablet by mouth 30 minutes before bedtime Quviviq 25 mg TAKE ONE TABLET BY MOUTH 30 MINUTES BEFORE BEDTIME for 30 Mar, ActiveQuviviq 25 MG tablet (16 sources)Quviviq 25 MG tablet Activetake 1 tablet by mouth once daily 30 minutes before bedtimeQuviviq 25 MG tablet TAKE ONE TABLET BY MOUTH ONCE DAILY 30 MINUTES BEFORE BEDTIME Activeinsulin, regular, human 500 unt/ml injectable solution (20 sources)InsulinStart: 55-04-9612lcabgyu regular (HumuLIN R U-500) 500 UNIT/ML CONCENTRATED injection 11/19/2023 ActiveStart: 14-13-8683qgpzjby regular (HumuLIN R U-500) 500 UNIT/ML CONCENTRATED injection .COMPLEX 11/19/2023 Active Start: 11-19-2023 End: 23-52-8420Voaxlit Regular Hum U-500 Conc 500 unit/mL solution Discontinued 0 SUBCUT .COMPLEX November 19, 2023 12:00am July 23, 2024 8:04am as directed subcutaneouslyStart: 04-27-6458Xnykkwj R (Concentrated) 500 units/mL subcutaneous solution See Instructions, Refills(s) 0, Blood glucose Start Date: 07/28/18 Status: OrderedStart: 05-01-2017 End: 21-48-0222Klmiipl Regular Hum U-500 Conc (Humulin R U-500 (Conc) Kwikpen) 500 unit/mL (3 mL) insulin pen Discontinued May 01, 2017 1:00am June 22, 2019 2:31pmHumuLIN R U-500 (CONCENTRATED) 500 UNIT/ML as directed Subcutaneous ActiveS.A.S.(Saline, Administration of Drug, Saline) (20 sources)Start: 06-23-2022S.A.S.(Saline, Administration of Drug, Saline) S.A.S.(Saline, Administration of Drug, Saline), Print Requisition, Supply Start Date: 06/23/22 Status: OrderedS.A.S.H.(Saline, Administration of Drug, Saline, Heparin (16 sources)Start: 08-18-2022S.A.S.H.(Saline, Administration of Drug, Saline, Heparin S.A.S.H.(Saline, Administration of Drug, Saline, Heparin, Print Requisition, Supply Start Date: 08/18/22 Status: Orderedsacubitril 24 mg / valsartan 26 mg oral tablet (20 sources)Angiotensin 2 Receptor BlockerStart: 29-96-8683yvui 1 tablet by mouth twice dailySacubitril-Valsartan (Entresto) 24-26 mg tablet Active 1 TAB PO Twice daily November 19, 2023 12:00amComplies with drug therapyStart: 04-14-2022 Entresto 24-26 MG tablet every 12 (twelve) hours 04/14/2022 ActiveENTRESTO 24 mg/26 mg 1 orally twice a day Activescooter (2 sources)Start: 06-82-4119npjoktr Active 0 .Route .MEDSUPPLY 1 0 February 08, 2025 11:32am Frequent falls History of spinal surgery Osteoarthritis of right knee Diabetic neuropathy associated with type 2 diabetes mellitus Ulcer of lower extremity due to diabetes mellitus Repeated falls Other specified postprocedural states Unilateral primary osteoarthritis, right knee Type 2 diabetes mellitus with diabetic polyneuropathy Type 2 diabetes mellitus with other skin ulcer As directedStart: 02-08-2025 End: 95-88-0975plmpbsi Discontinued 0 .Route .MEDSUPPLY 1 0 February 08, 2025 12:00am February 08, 2025 11:32am Frequent falls History of spinal surgery Osteoarthritis of right knee Diabetic neuropathy associated with type 2 diabetes mellitus Ulcer of lower extremity due to diabetes mellitus Repeated falls Other specified postprocedural states Unilateral primary osteoarthritis, right knee Type 2 diabetes mellitus with diabetic polyneuropathy Type 2 diabetes mellitus with other skin ulcer As directed1 mg dose 1.5 ml semaglutide 1.34 mg/ml pen injector (20 sources)Start: 07-25-2024 End: 14-30-0713rvwgjy 1 mg by subcutaneous injection every weeksemaglutide (Ozempic, 1 MG/DOSE,) 2 MG/1.5ML solution pen-injector Indications: Type 2 diabetes mellitus with hyperglycemia, unspecified whether half-way insulin use (HCC) Inject 1 mg under the skin1 (one) time per week 9 mL 1 12/28/2024 06/14/2025 Activesemaglutide (Ozempic, 1 MG/DOSE,) 2 MG/1.5ML solution pen- injector Inject 1 mg under the skin Activesemaglutide (OZEMPIC) 0.25 mg or 0.5 mg(2 mg/1.5 mL) pen injector Ozempic 0.25 mg or 0.5 mg (2 mg/1.5 mL) subcutaneous pen injector ActiveSemaglutide (7 sources)Start: 65-74-1027gvowxd 1 mg by subcutaneous injection every week Start: 87-58-5725pfmbjp 1 mg by subcutaneous injection every weekSemaglutide (Ozempic) 1 mg/dose (4 mg/3 mL) pen injector Active 1 MG SUBCUT every week July 23, 2024 12:00am Complies with drug therapyStart: 83-75-8837neguhb 1 mg by subcutaneous injection every weekSemaglutide (Ozempic) 1 mg/dose (4 mg/3 mL) pen injector Active 1 MG SUBCUT every week July 23, 2024 12:00amsennosides, group home 8.6 mg oral tablet (1 source)Start: 88-70-1657zolo 2 tablets by mouth twice daily as neededSenokot 8.6 mg Tab 17.2 mg = 2 tab(s), Oral, BID, PRN Other (see comment), Refills(s) 0 Start Date:07/27/24 Status: Ordered Repeat number: 1spironolactone 50 mg oral tablet (20 sources)Aldosterone AntagonistStart: 63-19-0215psba 1 tablet by mouth once dailySpironolactone 50 mg tablet Active 50 MG PO Daily July 05, 2024 1:00am Complies with drug therapyStart: 04-18-2022 End: 80-39-6814Vtrnuqtqo 50 mg Tab 100 mg = 2 tab(s), Tab, Oral, Start date 04/18/22 9:00:00 EST, 04/15/22 9:24:00EST Start Date: 04/18/22 Stop Date: 04/18/22 Status: CompletedStart: 07-28-2018 End: 30-34-4181xoqq 1 tablet by mouth once dailySpironolactone 100 mg Tablet Discontinued 100 MG PO Daily August 23, 2020 12:00am July 05, 2024 2:47pm take 1 tablet by mouth once dailyspironolactone (ALDACTONE) 25 mg tablet Take 25 mg by mouth daily. Activetiotropium 0.018 mg inhalation powder (20 sources)AnticholinergicStart: 36-85-5727xaza 1 capsule by inhalation once dailyTiotropium [place] (Spiriva With Handihaler) 18 mcg capsule, w/inhalation device Active 1 CAP INHALATION Daily August 04, 2024 12:00am puncture 1 cap using device; one dose = 2 inhalations Complies with drug therapyStart: 06-22-2019 End: 67-80-4670gern 1 capsule by inhalation once dailyTiotropium [place] (Spiriva With Handihaler) 18 mcg Capsule, W/Inhalation Device Discontinued 1 CAP INHALATION Daily June 22, 2019 1:00am July 05, 2024 2:48pmStart: 02-33-3142Mfgshsa 18 mcg Cap 18 microgram = 1 cap(s), Inhalation, Daily, Using only ONE capsule, have the patient inhale twice, COPD Start Date: 07/28/18 Status: Ordered Repeat number: 1Start: 39-70-1373Tvhvgtt 18 mcg Cap 18 microgram = 1 cap(s), Inhalation, Daily, Using only ONE capsule, have the patient inhale twice, COPD Start Date: 07/28/18 Status: OrderedStart: 59-24-3392Vrqnjlk 18 mcg Cap 18 microgram = 1 cap(s), Inhalation, Daily, Using only ONE capsule, have the patient inhale twice, COPD Start Date: 07/28/18 Status: Orderedtake 1 capsule by inhalation in the morningtiotropium (Spiriva) [address] 1 capsule into inhaler and inhale in the morning. Activetake 1 capsule by inhalation once dailySpiriva HandiHaler 18 MCG 1 capsule by inhaling the contents of the capsule using the HandiHaler device Inhalation Once a day Active take 1 capsule by inhalation once dailySpiriva HandiHaler 18 MCG 1 capsule by inhaling the contents of the capsule using the HandiHaler device Inhalation Once a day ActiveSpiriva HandiHaler 18 MCG Inhalation ActiveTiotropium [place] (Spiriva With Handihaler) 18 mcg capsule, w/inhalation device (2 sources)Start: 07-28-8494iscd 1 capsule by inhalation once dailyTiotropium [place] (Spiriva With Handihaler) 18 mcg capsule, w/inhalation device Active 1 CAP INHALATION Daily August 04, 2024 12:00am puncture 1 cap using device; one dose = 2 inhalationstraZODone hydrochloride 50 mg oral tablet (2 sources)Serotonin Reuptake Inhibitortake 1 tablet by mouth twice daily traZODone (DESYREL) 50 mg tablet trazodone 50 mg tablet Take 1 tablet twice a day by oral route for30 days. Activeursodiol 250 mg oral tablet (2 sources)Bile AcidStart: 40-84-5609rinv 1 tablet by mouth twice dailyursodiol (ACTIGALL) 250 mg tablet Indications: Rapid weight loss Take 1 tablet (250 mg total) by mouth 2 (two) times a day. 60 tablet 5 10/21/2018 Activevalacyclovir (20 sources)Herpesvirus Nucleoside Analog DNA Polymerase Inhibitor, Herpes Simplex Virus Nucleoside Analog DNA Polymerase Inhibitor, Herpes Zoster Virus Nucleoside Analog DNA Polymerase InhibitorStart: 08-81-3259rbrm 1 g by mouth twice dailyvalacyclovir 1 gm, Oral, BID, Refills(s) 0 Start Date: 07/26/24 Status: Ordered Repeat number: 1Start: 43-41-4177Clewmunskzpr (Valtrex) 1 gram tablet Active 1000 MG PO Twice daily December 29, 2023 12:00am Complies with drug xvixozp555 ml vancomycin 5 mg/ml injection (20 sources)Glycopeptide AntibacterialStart: 06-23-2022 End: 45-03-3828yiyq 1 g intravenously every twelve hoursvancomycin 1 g/200 mL- NaCl 0.9% intravenous solution 1 gm, IV, q12hr, Check trough twice a week and adjust dosing of vancomycin as needed. Last day will be August 04, 2022. Giva VIA PICC line, X 6 week(s), # 84 EA, Refills(s) 0 Start Date: 06/23/22 Stop Date: 08/04/22 Status: OrderedVancomycin HCl 1 GM as directed Intravenous ActiveVitamin C 500 MG (17 sources)Vitamin C 500 MG as directed Orally ActiveVitamin C 500 mg Tab (4 sources)Start: 05-24-2022 End: 48-50-9280Vahmgoq C 500 mg Tab 500 mg = 1 tab(s), Oral, BIDWM, X 30 day(s), # 60 tab(s), Refills(s) 0, Pharmacy: [id number], 180.3, cm, 05/22/22 6:47:00 EST, Height/Length Dosing, 136.5, kg, 236:47:00 EST, Weight Dosing Start Date: 05/24/22 Stop Date: 06/23/22 Status: OrderedVitamin D 25 MCG (1000 UT) (20 sources)take 1 tablet by mouth once dailyVitamin D 25 MCG (1000 UT) 1 tablet Orally Once a day Activezolpidem tartrate 10 mg oral tablet (20 sources)gamma-Aminobutyric Acid-ergic AgonistStart: 07-95-4814leuc 1 tablet by mouth once daily at bedtimeZolpidem (Ambien) 10 mg tablet Active 10 MG PO Daily at bedtime 90 90 1 March 08, 2025 12:00am Insomnia Primary insomnia Complies with drug therapyStart: 02-09-2016 End: 89-72-8297ffpc 1 tablet by mouth once dailyZolpidem 10 mg tablet Discontinued 10 MG PO Daily June 22, 2019 1:00am August 13, 2023 9:39am Completed/Discontinued Medications MedicationDrug Class(es)DatesSig (Normalized)Sig (Original)amoxicillin 875 mg / clavulanate 125 mg oral tablet (10 sources)Penicillin-class AntibacterialStart: 07-13-2024 End: 63-47-7391wkvc 1 tablet by mouth twice dailyAmoxicillin-Pot Clavulanate 875-125 mg tablet Discontinued 1 TAB PO Twice daily July 13, 2024 1:00am August 04, 2024 8:45amStart: 05-25-2022 End: 81-74-3807ulck 1 tablet by mouth every twelve hoursAugmentin 875 mg oral tablet = 1 tab(s), Oral, q12hr, X 10 day(s), # 20 tab(s), Refills(s) 0, [facility]: [id number], 180.3, cm, 05/22/22 6:47:00 EST, Height/Length Dosing, 136.5, kg, 05/22/22 6:47:00 EST, Weight Dosing Start Date: 05/25/22 Stop Date: 06/04/22 Status: OrderedStart: 04-18-2022 End: 73-94-0326ykex 1 tablet by mouth every twelve hoursAugmentin 875 mg oral tablet = 1 tab(s), Oral, q12hr, X 10 day(s), # 20 tab(s), Refills(s) 0, Ph[facility]: [id number], 180, cm, 04/14/22 11:50:00 EST, Height/Length Dosing, 135.5, kg, 04/14/2211:50:00 EST, Weight Dosing Start Date: 04/18/22 Stop Date: 04/28/22 Status: Orderedatropine sulfate 0.025 mg / diphenoxylate hydrochloride 2.5 mg oral tablet (20 sources)Anticholinergic, Cholinergic Muscarinic Antagonist, Antidiarrheal Start: 08-04-2024 End: 49-78-6752jgse 1 tablet by mouth once dailyDiphenoxylate-Atropine 2.5-0.025 mg tablet Discontinued 1 TAB PO Daily August 04, 2024 12:00am September 01, 2024 11:31amStart: 02-11-2023 End: 86-23-5628tmvb 1 tablet by mouth four times daily as needed for diarrhea Diphenoxylate-Atropine 2.5-0.025 mg tablet Discontinued 1 TAB PO Four times daily as needed for diarrhea 30 30 0 December 29, 2023 12:19pm February 27, 2024 8:22am Gastroparesis GastroparesisStart: 67-78-4492Lrkuypvvnhzhd-Atropine 2.5-0.025 MG TAKE ONE TABLET BY MOUTH THREE TIMES A DAY NEEDED FOR 10 DAYS for Nov, ActiveStart: 21-66-7017Wpxorpturizzm-Atropine 2.5-0.025 MG TAKE ONE TABLET BY MOUTH THREE TIMES A DAY NEEDED FOR 10 DAYS for September, ActiveStart: 38-14-3361ppke 1 tablet by mouth three times daily as needed Diphenoxylate-Atropine 2.5-0.025 MG TAKE ONE TABLET BY MOUTH THREE TIMES A DAY NEEDED for Jun, ActiveStart: 23-55-7187cmbz 1 tablet by mouth four times dailyatropine-diphenoxylate 0.025 mg-2.5 mg Tab 1 tab(s), Oral, QID for loose stool, Refill(s) 0 Start Date: 05/20/22 Status: OrderedStart: 04-14-2022 Lomotil Refill(s) 0, 2.5mg TID PRN Start Date: 04/14/22 Status: OrderedStart: 89-36-1680siiqqswhnqpaj-atropine (Lomotil) 2.5-0.025 MG tablet 02/26/2022 Active baclofen 10 mg oral tablet (20 sources)gamma-Aminobutyric Acid-ergic AgonistStart: 05-01-2017 End: 64-04-9476Jwebvfwu 10 mg tablet Discontinued May 01, 2017 1:00am June 22, 2019 2:32pmStart: 05-01-2017 End: 70-05-7398Svsnoszo 10 mg tablet Discontinued TABLET May 01, 2017 1:00am June 22, 2019 2:32pm12 hr buPROPion hydrochloride 200 mg extended release oral tablet (20 sources)AminoketoneStart: 08-23-2020 End: 07-81-8949rvtb 1 tablet by mouth once dailyBupropion Hcl 200 mg Tablet Sustained-Release 12 Hr Discontinued 200 MG PO Daily August 23, 2020 12:00am August 13, 2023 9:35amStart: 05-90-9238gkbv 1 tablet by mouth once daily Wellbutrin SR 100 mg Tab-ER 100 mg = 1 tab(s), Oral, Daily, Depression Start Date: 11/02/19 Status: Orderedcalcium citrate 500 mg oral tablet (20 sources)Start: 08-23-2020 End: 35-79-5063aljg 500 mg by mouth three times dailyCalcium Citrate Discontinued 500 MG PO Three times daily August 23, 2020 12:00am November 19, 2023 9:13amCalcium Citrate 500 mg Tablet, Effervescent (10 sources)Start: 08-23-2020 End: 50-56-9211zlwm 1 tablet by mouth three times dailyCalcium Citrate 500 mg Tablet, Effervescent Discontinued 500 MG PO Three times daily August 23, 2020 12:00am November 19, 2023 9:13amStart: 08-23-2020 End: 46-48-2817dbey 1 tablet by mouth three times dailyCalcium Citrate 500 mg Tablet, Effervescent Discontinued 500 MG PO Three times daily August 22, 2020 11:00pm November 19, 2023 8:13amCalcium Citrate Chewy Bite 500-500 MG-UNIT (19 sources)Calcium Citrate Chewy Bite 500-500 MG-UNIT as directed Orally Not-TakingCalcium Citrate [place]wy Bite 500-500 MG-UNIT as directed Orally Active canagliflozin (20 sources)Sodium-Glucose Cotransporter 2 InhibitorStart: 05-01-2017 End: 65-00-5933Akfqnkjfiyjwf (Invokana) 100 mg tablet Discontinued TABLET May 01, 2017 6:42pm June 22, 2019 1:32pmStart: 05-01-2017 End: 89-79-5773Ihdxyfndpjgii (Invokana) 100 mg tablet Discontinued May 01, 2017 1:00am June 22, 2019 2:32pmStart: 05-01-2017 End: 13-93-6961Hrrhzkomkbldi (Invokana) 100 mg tablet Discontinued TABLET May 01, 2017 1:00am June 22, 2019 2:32pmStart: 05-01-2017 End: 03-49-2635Hzmczttxohphv (Invokana) 100 mg tablet Discontinued TABLET May 01, 2017 12:00am June 22, 2019 1:32pmcarvedilol 6.25 mg oral tablet (20 sources)alpha-Adrenergic Shayan, beta-Adrenergic BlockerStart: 07-05-2024 End: 42-43-5216adrc 1 tablet by mouth twice dailyCarvedilol 6.25 mg tablet Discontinued 6.25 MG PO Twice daily July 05, 2024 1:00am July 11:34amStart: 04-14-2022 End: 64-39-6815inyc 1 tablet by mouth twice dailyCarvedilol 3.125 mg tablet Discontinued 3.125 MG PO Twice daily November 19, 2023 12:00am July 05, 2024 2:38pmStart: 66-82-7229pwgi 1 tablet by mouth twice dailyCoreg 3.125 mg Tab 3.125 mg = 1 tab(s), Oral, BID, Refills(s) 0 Start Date: 04/14/22 Status: Ordered Start: 59-48-5887qdubqaghft (Coreg) 3.125 MG tablet every 12 (twelve) hours. 04/14/2022 ActiveStart: 08-23-2020 End: 33-71-8193xvul 1 tablet by mouth twice dailyCarvedilol 12.5 mg Tablet Discontinued 12.5 MG PO Twice daily August 23, 2020 12:00am November 19, 2023 9:05amStart: 05-01-2017 End: 70-95-5079Lsxkpshfrz 25 mg tablet Discontinued May 01, 2017 1:00am June 22, 2019 2:32pmStart: 03-08-2016 End: 48-58-6337Jkpnumkyvq 25 mg tablet Discontinued TABLET May 01, 2017 1:00am June 22, 2019 2:32pmtake 1 tablet by mouth every twenty-four hours Carvedilol 3.125 MG 1 Tablet Orally once a day 3.25 mg Activecephalexin 500 mg oral capsule (20 sources)Cephalosporin AntibacterialStart: 07-08-2019 End: 06-12-2958hgjy 1 capsule by mouth twice dailyCephalexin (Keflex) 500 mg capsule Discontinued 500 MG PO Twice daily 14 0 July 08, 2019 1:00am August 23, 2020 8:17amclonazePAM 1 mg oral tablet (20 sources)BenzodiazepineStart: 10-14-2023 End: 53-77-8819cauy 0.5-1 tablets by mouth once daily 30 minutes before bedtime Clonazepam 1 mg tablet Discontinued 0 PO Daily at bedtime 30 30 2 January 25, 2024 5:33pm March 02, 2024 4:15pm Restless legs syndrome Restless legs syndrome 1/2-1 tablet orally daily at bedtime; administer 30 minutes before bedtimeDaridorexant (18 sources)Start: 09-05-2024 End: 42-98-2317syhu 1 tablet by mouth once daily at bedtimeDaridorexant (Quviviq) 50 mg tablet Discontinued 50 MG PO Daily at bedtime 90 90 1 September 0553:48pm March 08, 2025 2:22pm Insomnia Insomnia, unspecifiedStart: 33-67-8720inyf 1 tablet by mouth once daily at bedtimeStart: 06-67-3673wgeu 1 tablet by mouth once daily at bedtimeDaridorexant (Quviviq) 50 mg tablet Active 50 MG PO Daily at bedtime 90 90 September 05, 2024 3:48pm Complies with drug therapyStart: 87-87-3859dtrh 1 tablet by mouth once daily at bedtimeDaridorexant (Quviviq) 50 mg tablet Active 50 MG PO Daily at bedtime 90 September 05, 2024 3:48pmStart: 03-02-2024 End: 27-18-3386sikg 1 tablet by mouth once daily at bedtimeDaridorexant (Quviviq) 50 mg tablet Discontinued 50 MG PO Daily at bedtime 90 90 March 02, 2024 12:00am September 05, 2024 3:51pm Insomnia Insomnia, unspecifiedStart: 03-02-2024 End: 64-53-7812necc 1 tablet by mouth once daily at bedtimeDaridorexant (Quviviq) 50 mg tablet Discontinued 50 MG PO Daily at bedtime 90 March 022:00am September 05, 2024 3:51pmStart: 44-96-3790kkei 1 tablet by mouth once daily at bedtimeDaridorexant (Quviviq) 50 mg tablet Active 50 MG PO Daily at bedtime 90 March 01, 2024 11:00pmStart: 73-73-2962nurn 1 tablet by mouth once daily at bedtimeDaridorexant (Quviviq) 50 mg tablet Active 50 MG PO Daily at bedtime 90 March 02, 2024 12:00amDaridorexant (20 sources)Start: 11-19-2023 End: 49-12-9990tpsf 1 tablet by mouth once daily at bedtimeDaridorexant (Quviviq) 25 mg tablet Discontinued 25 MG PO Daily at bedtime November 19, 2023 12:00am March 02, 2024 4:16pmStart: 09-21-2023 End: 75-49-4015bqqh 1 tablet by mouth once daily at bedtimeDaridorexant (Quviviq) 25 mg tablet Discontinued 25 MG PO Daily at bedtime 30 30 September 21, 2023 12:44pm October 14, 2023 4:09pm Insomnia Insomnia, unspecifiedStart: 09-21-2023 End: 35-42-8564xbso 1 tablet by mouth once daily at bedtimeDaridorexant (Quviviq) 25 mg tablet Discontinued 25 MG PO Daily at bedtime 30 30 September 21, 2023 12:44pm October 14, 2023 4:09pmStart: 09-21-2023 End: 53-88-5301kvad 1 tablet by mouth once daily at bedtimeDaridorexant (Quviviq) 25 mg tablet Discontinued 25 MG PO Daily at bedtime 30 30 September 21, 2023 12:43pm September 21, 2023 12:44pm Insomnia Insomnia, unspecifiedStart: 09-21-2023 End: 20-30-0742dzsi 1 tablet by mouth once daily at bedtimeDaridorexant (Quviviq) 25 mg tablet Discontinued 25 MG PO Daily at bedtime 30 30 September 21, 2023 12:43pm September 21, 2023 12:44pmStart: 08-13-2023 End: 38-00-2626aztu 1 tablet by mouth once daily at bedtimeDaridorexant (Quviviq) 25 mg tablet Discontinued 25 MG PO Daily at bedtime 30 30 0 August 13, 2023 9:56am September 21, 2023 12:44pm Insomnia Insomnia, unspecifiedStart: 08-13-2023 End: 97-98-0567qbjm 1 tablet by mouth once daily at bedtimeDaridorexant (Quviviq) 25 mg tablet Discontinued 25 MG PO Daily at bedtime 30 30 August 13, 2023 9:56am September 21, 2023 12:44pmStart: 07-13-2023 End: 01-53-1639gtxr 1 tablet by mouth once daily at bedtimeDaridorexant (Quviviq) 25 mg tablet Discontinued 25 MG PO Daily at bedtime 30 30 0 July 13, 2023 4:38pm August 13, 2023 9:59am Insomnia Insomnia, unspecifiedStart: 07-13-2023 End: 40-37-2169ughm 1 tablet by mouth once daily at bedtimeDaridorexant (Quviviq) 25 mg tablet Discontinued 25 MG PO Daily at bedtime 30 30 July 13, 2023 4:38pm August 13, 2023 9:59amStart: 07-13-2023 End: 02-72-2478xuzj 1 tablet by mouth once daily at bedtimeDaridorexant (Quviviq) 25 mg tablet Discontinued 25 MG PO Daily at bedtime July 13, 2023 1:00am July 13, 2023 4:38pmDaridorexant (Quviviq) 25 mg tablet (20 sources)Start: 11-19-2023 End: 24-34-3240yqxt 1 tablet by mouth once daily at bedtimeDaridorexant (Quviviq) 25 mg tablet Discontinued 25 MG PO Daily at bedtime November 18, 2023 11:00pm March 02, 2024 3:16pmStart: 11-19-2023 End: 65-57-7882hzxo 1 tablet by mouth once daily at bedtimeDaridorexant (Quviviq) 25 mg tablet Discontinued 25 MG PO Daily at bedtime November 19, 2023 12:00am March 02, 2024 4:16pmStart: 06-66-1853rxex 1 tablet by mouth once daily at bedtimeDaridorexant (Quviviq) 25 mg tablet Active 25 MG PO Daily at bedtime November 19, 2023 12:00amStart: 09-21-2023 End: 53-78-3911tvzg 1 tablet by mouth once daily at bedtimeDaridorexant (Quviviq) 25 mg tablet Discontinued 25 MG PO Daily at bedtime September 21, 2023 11:44am October 14, 2023 3:09pmStart: 09-21-2023 End: 79-96-0511mhin 1 tablet by mouth once daily at bedtimeDaridorexant (Quviviq) 25 mg tablet Discontinued 25 MG PO Daily at bedtime September 21, 2023 12:44pm October 14, 2023 4:09pmStart: 09-21-2023 End: 95-12-4317vzgw 1 tablet by mouth once daily at bedtimeDaridorexant (Quviviq) 25 mg tablet Discontinued 25 MG PO Daily at bedtime September 21, 2023 11:43am September 21, 2023 11:44amStart: 09-21-2023 End: 22-88-3192sjuc 1 tablet by mouth once daily at bedtimeDaridorexant (Quviviq) 25 mg tablet Discontinued 25 MG PO Daily at bedtime September 21, 2023 12:43pm September 21, 2023 12:44pmStart: 08-13-2023 End: 42-51-6305cugj 1 tablet by mouth once daily at bedtimeDaridorexant (Quviviq) 25 mg tablet Discontinued 25 MG PO Daily at bedtime August 13, 2023 8:56am September 21, 2023 11:44amStart: 08-13-2023 End: 67-24-7734xnfp 1 tablet by mouth once daily at bedtimeDaridorexant (Quviviq) 25 mg tablet Discontinued 25 MG PO Daily at bedtime 30 August 13, 2023 9:56am September 21, 2023 12:44pmStart: 50-04-7943iwaz 1 tablet by mouth once daily at bedtimeDaridorexant (Quviviq) 25 mg tablet Active 25 MG PO Daily at bedtime August 13, 2023 9:56amStart: 07-13-2023 End: 34-44-5529znsa 1 tablet by mouth once daily at bedtimeDaridorexant (Quviviq) 25 mg tablet Discontinued 25 MG PO Daily at bedtime July 13, 2023 3:38pm August 13, 2023 8:59amStart: 07-13-2023 End: 35-92-1756xicn 1 tablet by mouth once daily at bedtimeDaridorexant (Quviviq) 25 mg tablet Discontinued 25 MG PO Daily at bedtime July 13, 2023 4:38pm August 13, 2023 9:59amStart: 07-13-2023 End: 77-55-4170rwll 1 tablet by mouth once daily at bedtimeDaridorexant (Quviviq) 25 mg tablet Discontinued 25 MG PO Daily at bedtime July 13, 2023 12:00am July 13, 2023 3:38pmStart: 07-13-2023 End: 47-47-1388dmdw 1 tablet by mouth once daily at bedtimeDaridorexant (Quviviq) 25 mg tablet Discontinued 25 MG PO Daily at bedtime July 13, 2023 1:00am July 13, 2023 4:38pmdoxycycline hyclate 100 mg oral capsule (20 sources)Tetracycline-class DrugStart: 07-05-2024 End: 25-80-6334mlwm 1 capsule by mouth twice dailyDoxycycline Hyclate 100 mg capsule Discontinued 100 MG PO Twice daily July 05, 2024 1:00am September 01, 2024 11:13amStart: 14-85-6314wdth 1 tablet by mouth every twenty-four hoursDoxycycline Hyclate 100 MG 1 tablet Orally Once a day for 10 day(s) Jun, ActiveStart: 04-18-2022 End: 33-12-3519rfzy 1 capsule by mouth twice dailydoxycycline hyclate 100 mg Cap 100 mg = 1 cap(s), Oral, BID, X 10 day(s), # 20 cap(s), Refills(s) 0, Pharmacy: [facility], 180, cm, 04/14/22 11:50:00 EST, Height/Length Dosing, 135.5, kg, 04/14/22 11:50:00 EST, Weight Dosing Start Date: 04/18/22 Stop Date: 04/28/22 Status: OrderedStart: 41-93-0813vauk 1 capsule by mouth twice daily doxycycline hyclate 100 mg Cap 100 mg = 1 cap(s), Oral, BID, Other (see comment) Start Date: 07/28/18 Status: OrderedStart: 05-01-2017 End: 16-74-6441dkgt 1 capsule by mouth twice dailyDoxycycline Hyclate 100 mg tablet Discontinued 1 CAP PO Twice daily May 01, 2017 1:00am 2023 9:06amtake 10 mL by mouth twice dailyDoxycycline Calcium 50 MG/5ML 10 ml Orally Twice a day Not-Takingtake 10 mL by mouth twice dailyDoxycycline Calcium 50 MG/5ML 10 ml Orally Twice a day Activeempagliflozin 10 mg oral tablet (20 sources)Sodium-Glucose Cotransporter 2 InhibitorStart: 05-01-2017 End: 19-31-0748Dskzpkdoagiaw (Jardiance) 10 mg tablet Discontinued May 01, 2017 1:00am June 22, 2019 2:31pmergocalciferol 1.25 mg oral capsule (20 sources)Provitamin D2 CompoundStart: 08-04-2024 End: 13-26-7477hezb 1 capsule by mouth every weekErgocalciferol (Vitamin D2) 1,250 mcg (50,000 unit) capsule Discontinued 1250 MCG PO every week August 04, 2024 12:00am September 01, 2024 11:31amStart: 08-15-2022 End: 02-09-8393ypdcdzmqfdeabo 50,000 intl units Cap 50,000 International_Unit = 1 cap(s), Oral, q7day, X 8 week(s), # 8 cap(s), Refills(s) 0, Pharmacy: [facility], 180, cm, 08/13/22 9:23:00 EDT, Height/Length Dosing, 136.5, kg, 08/13/22 9:23:00 EDT, Weight Dosing Start Date: 08/15/22 Stop Date: 10/10/22 Status: OrderedStart: 05-22-2022 End: 83-58-2659daujnepprgfzyo 50,000 intl units Cap 50,000 International_Unit = 1 cap(s), Oral, q7day, X 6 week(s), # 6 cap(s), Refills(s) 0, Pharmacy: [facility], 180.3, cm, 05/22/22 6:47:00 EST, Height/Length Dosing, 136.5, kg, 05/22/22 6:47:00 EST, Weight Dosing Start Date: 05/22/22 Stop Date: 07/03/22 Status: OrderedErgocalciferol 1.25 MG (19001 UT) 1 capsule Orally Active esomeprazole 40 mg delayed release oral capsule (20 sources)Proton Pump InhibitorStart: 12-05-2024 End: 66-08-7382dnrl 1 capsule by mouth once dailyEsomeprazole Magnesium 40 mg capsule,delayed release(DR/EC) Discontinued 40 MG PO Daily 30 December 05, 2024 12:00am December 06, 2024 1:03pmStart: 36-46-8638zxng 40 mg by mouth twice daily Nexium 40 mg, Oral, BID, Refills(s) 0 Start Date: 12/05/20 Status: OrderedStart: 05-01-2017 End: 20-96-0949Cnhzgahaeapi Magnesium 40 mg capsule,delayed release(DR/EC) Discontinued May 01, 2017 1:00amFebr2019 2:31pmStart: 01-08-2016 End: 12-36-8895Roetxrcuxyai Magnesium Discontinued May 01, 2017 1:00am June 22, 2019 2:31pmferrous sulfate 325 mg oral tablet (20 sources)Start: 79-64-0064vbnk 1 tablet by mouth twice dailyferrous sulfate 325 mg Tab 325 mg = 1 tab(s), Oral, BID, # 60 tab(s), Refills(s) 0 Start Date: 08/13/22 Status: OrderedStart: 05-22-2022 End: 43-50-7517pxew 1 tablet by mouth three times daily as neededFerrous Sulfate 325 mg (65 mg iron) tablet Discontinued 325 MG PO Three times daily as needed for anemia November 19, 2023 12:00am September 01, 2024 11:31amtake 1 tablet by mouth three times dailyFerrous Sulfate 325 (65 Fe) MG 1 tablet Orally TID Active finasteride 5 mg oral tablet (20 sources)5-alpha Reductase InhibitorStart: 08-04-2024 End: 26-19-2219fhmm 1 tablet by mouth once dailyFinasteride 5 mg tablet Discontinued 5 MG PO Daily August 04, 2024 12:00am September 01, 2024 11:31am Start: 08-08-2021 End: 88-16-8189zpjk 1 tablet by mouth once dailyFinasteride 5 mg tablet Discontinued 5 MG PO Daily November 19, 2023 12:00am July 05, 2024 2:41pm lactulose 667 mg/ml oral solution (20 sources)Osmotic LaxativeStart: 05-01-2017 End: 69-68-4118Bbydtrqwm 10 gram/15 mL solution Discontinued May 01, 2017 1:00am June 22, 2019 2:31pm24 hr levomilnacipran 120 mg extended release oral capsule (20 sources)Serotonin and Norepinephrine Reuptake InhibitorStart: 05-01-2017 End: 62-87-5175Ncfmbuljntrkfox (Fetzima) 120 mg capsule,extended release 24hr Discontinued May 01, 2017 1:00am June 22, 2019 2:33pmlosartan potassium 100 mg oral tablet (20 sources)Angiotensin 2 Receptor BlockerStart: 07-28-2018 End: 38-22-6050nszh 1 tablet by mouth once dailyLosartan 100 mg Tablet Discontinued 100 MG PO Daily August 23, 2020 12:00am November 19, 2023 9:13am Start: 05-01-2017 End: 61-66-1454Lkzqqafj 25 mg tablet Discontinued May 01, 2017 1:00am June 22, 2019 2:31pmStart: 05-01-2017 End: 70-17-0969Mvwyqumj 25 mg tablet Discontinued TABLET May 01, 2017 1:00am June 22, 2019 2:31pmStart: 05-01-2017 End: 16-91-7129Frnueexb Discontinued TABLET May 01, 2017 1:00am June 22, 2019 2:31pmlubiprostone 0.024 mg oral capsule (20 sources)Chloride Channel ActivatorStart: 05-01-2017 End: 92-07-6119Jpaqqguaflqc (Amitiza) 24 mcg capsule Discontinued May 01, 2017 1:00am June 22, 2019 2:31pmmagnesium oxide 400 mg oral tablet (20 sources)Start: 08-23-2020 End: 21-54-4611itnr 1 tablet by mouth three times dailyMagnesium Oxide 400 mg magnesium Tablet Discontinued 400 MG PO Three times daily August 23, 2020 12 :00am November 19, 2023 9:13amStart: 24-01-1914qdvl 2 tablets by mouth twice daily magnesium oxide (MAG-OX) 400 mg tablet Take 2 tablets by mouth 2 (two) times a day. 0 09/07/2017 ActiveMagnesium Oxide 400 tid Activemirtazapine 15 mg oral tablet (20 sources)Start: 06-22-2019 End: 89-09-6006chwu 1 tablet by mouth once dailyMirtazapine 15 mg tablet Discontinued 15 MG PO Daily June 22, 2019 1:00am August 23, 2020 8:20am Start: 28-69-6945qqlo 3 tablets by mouth once dailymirtazapine (REMERON) 15 mg tablet Take 45 mg by mouth nightly. 2 10/10/2017 Active2 ml naloxone hydrochloride 1 mg/ml prefilled syringe (20 sources)Opioid AntagonistStart: 11-19-2023 End: 86-59-1911Pckrbwbd 1 mg/mL syringe Discontinued 1 MG IM As Directed November 19, 2023 12:00am July 05, 2024 2:43pmStart: 93-91-3757Zriiunif Active 1 MG IM As Directed November 19, 2023 12:00amNaloxone HCl 2 MG/2ML as directed Injection ActiveOXcarbazepine 150 mg oral tablet (20 sources)Anti-epileptic AgentStart: 08-23-2020 End: 97-26-7036hbhl 1 tablet by mouth once dailyOxcarbazepine 150 mg Tablet Discontinued 150 MG PO Daily August 23, 2020 12:00am November 19, 2023 9:13amtake 1 tablet by mouth twice dailyOXcarbazepine (TRILEPTAL) 150 mg tablet Take 150 mg by mouth 2 (two) times a day. Activepioglitazone 30 mg oral tablet (11 sources)Peroxisome Proliferator Receptor alpha Agonist, Peroxisome Proliferator Receptor gamma Agonist, Thiazolidinedionetake 1 tablet by mouth once dailyPioglitazone HCl 30 MG TAKE 1 TABLET BY MOUTH DAILY Oral for 28 Days Not-Takingpotassium chloride 10 meq extended release oral capsule (20 sources)Start: 11-19-2023 End: 34-70-6458mynw 1 capsule by mouth twice dailyPotassium Chloride 10 mEq capsule, extended release Discontinued 10 MEQ PO Twice daily November 19, 2023 12:00am July 05, 2024 2:45pmStart: 73-21-0799juyk 1 capsule by mouth once daily as neededpotassium chloride 10 mEq Cap-ER 10 mEq = 1 cap(s), Oral, PRN Other (see comment), low potassium, does not take daily, # 60 cap(s), Refills(s) 0 Start Date: 08/13/22 Status: Ordered Quantity: 60.0 Unit: cap(s) Repeat number: 1Start: 59-82-7147kloe 1 capsule by mouth twice daily as neededpotassium chloride 10 mEq Cap-ER 10 mEq = 1 cap(s), Oral, BID, PRN Other (see comment), # 60 cap(s), Refills(s) 0 Start Date: 08/13/22 Status: OrderedStart: 50-66-7622kqie 6 tablets by mouth twice dailypotassium chloride 10 mEq ER Tab 60 mEq = 6 tab(s), Oral, BID, Refills(s) 0 Start Date: 12/05/20 Status: OrderedStart: 05-01-2017 End: 13-49-8462Uitxsxvzh Chloride 20 mEq/15 mL liquid Discontinued May 01, 2017 1:00am June 22, 2019 2:33pmpotassium chloride CR (Klor-Con) 10 MEQ ER tablet every 12 (twelve) hours Activepotassium chloride CR (Klor-Con M20) 20 MEQ ER tablet Activetake 1 tablet by mouth oncepotassium chloride CR (Klor- Con M20) 20 MEQ ER tablet TAKE ONE TABLET BY MOUTH ONCE TO TWICE DAILY DIRECTED Activepotassium chloride (KAYCIEL) 20 mEq/15 mL solution Take by mouth daily. Activesertraline 25 mg oral tablet (15 sources)Serotonin Reuptake InhibitorStart: 07-05-2024 End: 84-52-8312gkqy 1 tablet by mouth once dailySertraline 25 mg tablet Discontinued 25 MG PO Daily 90 0 August 10, 2024 11:33am September 01, 2024 11 :31amtamsulosin hydrochloride 0.4 mg oral capsule (20 sources)alpha-Adrenergic BlockerStart: 08-04-2024 End: 81-26-9277hbch 1 capsule by mouth once dailyTamsulosin 0.4 mg capsule Discontinued 0.4 MG PO Daily August 04, 2024 12:00am September 01, 2024 11:31am Start: 11-19-2023 End: 14-57-5583vrec 1 capsule by mouth once dailyTamsulosin 0.4 mg capsule Discontinued 0.4 MG PO Daily November 19, 2023 12:00am July 05, 2024 2:48pm Start: 01-15-2023 End: 25-43-6472ybenshwqjb 0.4 mg Cap 0.4 mg = 1 cap(s), Cap, Oral, Start date 01/15/23 9:00:00 EDT, 01/10/23 16:10:00 EDT Start Date: 01/15/23 Stop Date: 01/15/23 Status: CompletedStart: 51-59-2765ezrz 1 capsule by mouth twice dailytamsulosin 0.4 mg Cap 0.4 mg = 1 cap(s), Oral, BID, # 60 cap(s), Refills(s) 6, Pharmacy: [facility], 180, cm, 07/14/22 15:08:00 EST, Height/Length Dosing, 130, kg, 07/14/22 15:08:00 EST, Weight Dosing Start Date: 07/21/22 Status: Ordered Start: 06-23-2022 End: 15-23-6312xywmcvxhqq 0.4 mg Cap 0.4 mg = 1 cap(s), Cap, Oral, Start date 06/23/22 9:00:00 EST, 06/18/22 20:08:00 EST Start Date: 06/23/22 Stop Date: 06/23/22 Status: CompletedStart: 04-18-2022 End: 52-76-5092fhomaoyzbn 0.4 mg Cap 0.4 mg = 1 cap(s), Cap, Oral, Start date 04/18/22 9:00:00 EST, 04/15/22 9:24:00 EST Start Date: 04/18/22 Stop Date: 04/18/22 Status: CompletedStart: 09-80-5808unpx 1 capsule by mouth twice daily tamsulosin 0.4 mg Cap 0.4 mg = 1 cap(s), Oral, BID, # 60 cap(s), Refills(s) 6, Pharmacy: [facility], 180, cm, 11/30/21 15:13:00 EDT, Height/Length Dosing, 145, kg, 12/01/21 6:57:00 EDT, Weight Dosing Start Date: 02/25/22 Status: OrderedStart: 01-29-2021 End: 22-27-0786koethhiamk 0.4 mg Cap 0.4 mg = 1 cap(s), Cap, Oral, Start date 12/02/21 21:00:00 EDT, 11/30/21 22:38:00 EDT Start Date: 12/02/21 Stop Date: 12/02/21 Status: CompletedStart: 06-22-2019 End: 00-67-3787sayg 1 capsule by mouth once dailyTamsulosin 0.4 mg Capsule Discontinued 0.4 MG PO Daily June 22, 2019 1:00am August 23, 2020 8:20am take 1 capsule by mouth every twenty-four hours in the morningtamsulosin (Flomax) 0.4 MG 24 hr capsule Take 0.4 mg by mouth in the morning and 0.4 mg before bedtime. Activeterazosin 5 mg oral capsule (20 sources)alpha-Adrenergic BlockerStart: 09-07-2017 End: 64-65-9633cioh 1 capsule by mouth once dailyTerazosin 5 mg Capsule Discontinued 5 MG PO Daily June 22, 2019 1:00am November 19, 2023 9:13am divalproex sodium 500 mg delayed release oral tablet (20 sources)Mood Stabilizer, Anti-epileptic AgentStart: 08-04-2024 End: 87-72-3371wqcx 2 tablets by mouth twice dailyDivalproex 500 mg tablet,delayed release (DR/EC) Discontinued 1000 MG PO Twice daily August 04, 2024 12:00am September 01, 2024 11:31amStart: 11-19-2023 End: 03-57-9869ifgt 1 tablet by mouth once dailyDivalproex 125 mg tablet,delayed release (DR/EC) Discontinued 125 MG PO Daily November 19, 2023 12:00am July 05, 2024 2:40pmStart: 66-18-5928gzxr 1 capsule by mouth twice dailydivalproex sodium 125 mg Cap-EC 125 mg = 1 cap(s), Oral, BID, # 90 cap(s), Refills(s) 0 Start Date:08/13/22 Status: Ordered Quantity: 90.0 Unit: cap(s) Repeat number: 1 Start: 48-77-5110fckn 1 tablet by mouth at bedtimedivalproex sodium 250 mg Oral EC Tab 250 mg = 1 tab(s), Oral, Bedtime, Refills(s) 0 Start Date: 06/18/22 Status: OrderedStart: 34-84-7483jyan 1 tablet by mouth twice dailydivalproex sodium 500 mg Oral EC Tab 500 mg = 1 tab(s), Oral, BID, Refills(s) 0 Start Date: 04/15/22 Status: Ordered Repeat number: 1Start: 60-14-9001vsex 1 tablet by mouth once dailydivalproex sodium 500 mg Oral EC Tab 500 mg = 1 tab(s), Oral, Daily, Refills(s) 0 Start Date: 04/15/22 Status: OrderedStart: 72-13-6868btzr 2 tablets by mouth once dailyDepakote ER 500 mg Tab-ER 1,000 mg = 2 tab(s), Oral, Daily, Refills(s) 0, Anxiety Start Date: 07/28/18 Status: OrderedStart: 05-01-2017 End: 89-78-5020lyfn 2 tablets by mouth at bedtimeDivalproex (Depakote) 500 mg tablet,delayed release (DR/EC) Discontinued 1000 MG PO Bedtime May 01, 2017 1:00am November 19, 2023 9:06amStart: 05-01-2017 End: 96-09-1249cjyx 2 tablets by mouth at bedtimeDivalproex (Depakote) 500 mg tablet,delayed release (DR/EC) Discontinued 1000 MG PO Bedtime May 01, 2017 1:00am November 19, 2023 9:06amtake 1 tablet by mouth twice dailydivalproex (Depakote) 125 MG EC tablet TAKE ONE TABLET BY MOUTH TWICE A DAY WITH 500MG TABLETS Activetake 1 tablet by mouth once dailyDivalproex Sodium ER 250 mg TAKE ONE TABLET BY MOUTH DAILY for 28 ActiveVitamin D3 1000 intl units oral capsule (14 sources)Start: 13-84-2037edhy 1 capsule by mouth once dailyVitamin D3 1000 intl units oral capsule 1,000 International_Unit = 1 cap(s), Oral, Daily, Refills(s) 0 Start Date: 12/05/20 Status: Orderedvortioxetine 20 mg oral tablet (20 sources)Start: 08-23-2020 End: 39-49-1428bpqe 1 tablet by mouth once dailyVortioxetine (Trintellix) 20 mg Tablet Discontinued 20 MG PO Daily August 23, 2020 12:00am August 13, 2023 9:39amvortioxetine (TRINTELLIX) 10 mg tablet daily. Active Problems Active Problems Problem ClassificationProblemDateDocumented DateEpisodic/ChronicAbdominal hernia (20 sources)Hernia of abdominal cavity; Translations: [Unspecified abdominal hernia without obstruction or gangrene]EpisodicAbdominal pain (20 sources)Abdominal pain; Translations: [Unspecified abdominal pain]Onset: 62-28-7415QdwzacobHwbjc myocardial infarction (20 sources)Myocardial infarction; Translations: [Acute myocardial infarction, unspecified]Onset: 991096-16-6173ZcfnbfkTcjesaq disorders (20 sources)Anxiety disorder, unspecified; Translations: [Anxiety disorder] Onset: 32-10-9144XfnidvbIltdcd; peripheral; and visceral artery aneurysms (20 sources)Abdominal aortic aneurysm without rupture; Translations: [Abdominal aortic aneurysm, without rupture]36-12-8351GkutdakXrttnblo of urinary tract (20 sources)History of calculus of xpitpv76-82-7455PzizebjiNplqhrr dysrhythmias (20 sources)Paroxysmal atrial fibrillation; Translations: [Unspecified atrial fibrillation]Onset: 09-17-9344CgddwzjZphbclf dysrhythmias (2 sources)Palpitations; Translations: [Palpitations]Onset: 66-46-4343Fdczsdlf Chronic kidney disease (1 source)Chronic kidney disease; Translations: [Chronic kidney disease, unspecified]Onset: 83-42-3767EaizssgShaqqwu obstructive pulmonary disease and bronchiectasis (20 sources)Chronic obstructive lung disease; Translations: [Chronic obstructive pulmonary disease, unspecified]Onset: 2021 Resolved: 570129-23-3095IiqcjaiZpalxgr ulcer of skin (20 sources)Pressure ulcer stage 4; Translations: [Pressure ulcer of unspecified site, stage 4]Onset: 186427-69-9079ZnsszizFrjhosxclpky of device; implant or graft (20 sources)Other specified complication of vascular prosthetic devices, implants and grafts, initial encounter; Translations: [Occlusion of peripherally inserted central catheter (PICC) line]88-81-0938FyvmpmkSbngsqzzcroa of device; implant or graft (1 source)Blocked catheter; Translations: [Occlusion of peripherally inserted central catheter (PICC) line]EpisodicCongestive heart failure; nonhypertensive (20 sources)Congestive heart failure; Translations: [Heart failure]Onset: 04-10-2014 Resolved: 456102-73-4502KxasopqVxafgwmx atherosclerosis and other heart disease (20 sources)Coronary arteriosclerosis; Translations: [Atherosclerotic heart disease of [place] coronary artery without angina pectoris]Onset: 08-08-2011 Resolved: 100867-91-5686OpslmqnAvewfjmdwf and other anemia (20 sources)Anemia; Translations: [Anemia, unspecified]Onset: 00-58-0017Styrhqcv Deficiency and other anemia (20 sources)Chronic gxeiwd51-64-5835NflypmflXjfxbcrc mellitus with complications (20 sources)Diabetic foot ulcer; Translations: [Peripheral neuropathy due to type 2 diabetes mellitus]Onset: 62-82-3507JulvvvzEjatwkme mellitus without complication (20 sources)Diabetes mellitus; Translations: [Type 2 diabetes mellitus without complication]Onset: 997526-50-2688EafnebwQetasvfjd of lipid metabolism (20 sources)Mixed hyperlipidemia; Translations: [Mixed hyperlipidemia]Onset: 27-20-7328FafmzvgIozzsggxau disorders (20 sources)Gastroesophageal reflux disease without esophagitis; Translations: [Gastro-esophageal reflux disease without esophagitis]Onset: 79-70-7154Uvcnfvu Essential hypertension (20 sources)Essential (primary) hypertension; Translations: [Essential hypertension]Onset: 92-36-3432BlsmtjlGahmg and electrolyte disorders (1 source)Hypo-osmolality and or hyponatremia; Translations: [Hypo-osmolality and hyponatremia]Onset: 53-27-9598OnxyxxfrIjwxkhfvkhhgg symptoms and ill-defined conditions (20 sources)Urge incontinence; Translations: [Incontinence without sensory awareness]Onset: 62-32-1738TndwxrkPqsxnkenppjlt symptoms and ill-defined conditions (20 sources)Retention of urine; Translations: [Retention of urine, unspecified] Onset: 09-57-7786JokspqluRxzmuzbk (20 sources)Unspecified glaucoma; Translations: [Glaucoma]Onset: 04-25-2021 ChronicHeart valve disorders (4 sources)Unspecified abnormalities of heart beat; Translations: [UNS ABNORMALITIES HEART BEAT]Onset: 59-33-7558XxozhyqyHuocyiwuywd of prostate (20 sources)Benign prostatic hypertrophy with outflow obstruction; Translations: [Benign prostatic hyperplasia with lower urinary tract symptoms]Onset: 79-39-3567PeyptysJrchvjsd disorders (1 source)Immunodeficiency onmtymjv81-24-6009NqcxvtpOknwwsupp arthritis and osteomyelitis (except that caused by tuberculosis or sexually transmitted di sease) (20 sources)Chronic osteomyelitis; Translations: [Other chronic osteomyelitis, unspecified site]Onset: 10-29-7682GkysumxWumqfpewde infection (3 sources)Clostridium difficile diarrhea; Translations: [Enterocolitis due to Clostridium difficile, not specified as recurrent]EpisodicJoint disorders and dislocations; trauma-related (20 sources)Tear of meniscus of knee; Translations: [Unspecified tear of unspecified meniscus, current injury, unspecified knee, initial encounter] EpisodicMiscellaneous mental health disorders (20 sources)Primary insomnia; Translations: [Primary insomnia]ChronicMood disorders (20 sources)Moderate recurrent major depression; Translations: [Major depressive disorder, recurrent, moderate]Onset: 04-25-2021 Resolved: 92-88-8128DokapyeAugbgd and vomiting (20 sources)Nausea and vomiting; Translations: [Nausea with vomiting, unspecified]Onset: 29-63-1751BsmnykkkXtxgcqvgsfzcn gastroenteritis (4 sources)Noninfective gastroenteritis and colitis, unspecified; Translations: [Chronic diarrhea]EpisodicNutritional deficiencies (4 sources)Vitamin D deficiency; Translations: [Vitamin D deficiency, unspecified]85-06-4980DowmmqaXfot wounds of extremities (18 sources)Amputated toe of right foot; Translations: [Complete traumatic amputation of one right lesser toe, initial encounter]ChronicOpen wounds of extremities (1 source)Open wound of right foot; Translations: [Unspecified open wound, right foot, initial encounter]Onset: 30-22-3973AloonyobXnuenfjxwiiher (20 sources)Arthritis; Translations: [Unspecified osteoarthritis, unspecified site]Onset: 66-14-7082UyisxwpErfqz acquired deformities (6 sources)Equinus contracture of the ankle; Translations: [Contracture, right ankle]06-13-3735AwclekiQuvqx acquired deformities (6 sources)Equinus contracture of the ankle; Translations: [Contracture, left ankle]34-03-5025NbnaoxnGpxnn aftercare (20 sources)Long-term current use of insulin; Translations: [prison (current) use of insulin]EpisodicOther aftercare (1 source)prison (current) use of insulinEpisodicOther aftercare (1 source)computer terminal operator (current) use of antibioticsEpisodicOther aftercare (1 source)Long-term current use of drug therapy; Translations: [Other lobsterman (current) drug therapy]Onset: 35-44-9100QlvmjomyZhrme aftercare (1 source)Procedure carried out on subject; Translations: [Encounter for other specified aftercare]Onset: 82-05-5141IjkfwjyvBgjkv aftercare (2 sources)Other lobsterman (current) drug therapy; Translations: [Other half-way (current) drug therapy]Onset: 39-31-0880YslvrsnbZltko and ill-defined heart disease (20 sources)Diastolic dysfunction; Translations: [Heart disease, unspecified] ChronicOther and ill-defined heart disease (1 source)Heart disease, unspecified; Translations: [Diastolic dysfunction] ChronicOther bone disease and musculoskeletal deformities (3 sources)Idiopathic aseptic necrosis of bone; 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]ChronicOther bone disease and musculoskeletal deformities (3 sources)Avascular necrosis of bone of hip; Translations: [Idiopathic aseptic necrosis of right femur]ChronicOther bone disease and musculoskeletal deformities (1 source)Idiopathic aseptic necrosis of right femurChronicOther bone disease and musculoskeletal deformities (1 source)Idiopathic aseptic necrosis of left femurChronicOther bone disease and musculoskeletal deformities (6 sources)Amputee; Translations: [Acquired absence of limb, unspecified] 90-05-6422EjnwgugZfbcv circulatory disease (2 sources)History of insertion of inferior vena caval filter; Translations: [Presence of other vascular implants and grafts]Onset: ChronicOther circulatory disease (20 sources)Elevated blood pressure; Translations: [Elevated blood-pressure reading, without diagnosis of hypertension]EpisodicOther circulatory disease (20 sources)History of cerebrovascular accident without residual deficits; Translations: [Personal history of transient ischemic attack (TIA), and cerebral infarction without residual deficits]EpisodicOther connective tissue disease (1 source)H/O: musculoskeletal disease; Translations: [Personal history of other diseases of the musculoskeletal system and connective tissue]Onset: 07-23-2024 EpisodicOther connective tissue disease (1 source)Pain in right lower limb; Translations: [Pain in right leg]Onset: 62-31-6306KkniztzqLjuth connective tissue disease (2 sources)Recurrent falls ; Translations: [Repeated falls]80-11-1469Escrbgwe Other diseases of kidney and ureters (2 sources)Renal mass; Translations: [Other specified disorders of kidney and ureter]Onset: 342776-34-4155AwkeubgUoukb diseases of veins and lymphatics (1 source)Peripheral venous insufficiency; Translations: [Venous insufficiency (chronic) (peripheral)]Onset: 12-34-6326XquidwgpKzpwp disorders of stomach and duodenum (20 sources)Gastroparesis syndrome; Translations: [Gastroparesis]Onset: 231284-40-9693SxvjsltiDncxu gastrointestinal disorders (20 sources)Irritable bowel syndrome; Translations: [Irritable bowel syndrome without diarrhea]ChronicOther gastrointestinal disorders (20 sources)Constipation; Translations: [Constipation, unspecified]EpisodicOther gastrointestinal disorders (4 sources)History of bypass of stomach; Translations: [Bariatric surgery status]23-59-9977YkrubnjeFigjb hereditary and degenerative nervous system conditions (19 sources)Restless legs; Translations: [Restless legs syndrome]10-14-2023 ChronicOther hereditary and degenerative nervous system conditions (9 sources)Restless legs syndrome; Translations: [Restless legs syndrome (RLS)] 53-16-4906TeuxtpuZovai liver diseases (20 sources)Steatosis of liver; Translations: [Fatty (change of) liver, not elsewhere classified]Onset: 296793-17-4264PyjenyiHaobt liver diseases (20 sources)Disease of liver; Translations: [Liver disease, unspecified]Chronic Other lower respiratory disease (4 sources)Shortness of breath; Translations: [SHORTNESS OF BREATH]Onset: 83-11-3970WoahvbzxPpybh nervous system disorders (20 sources)Bilateral peripheral neuropathy of lower limbs; Translations: [Unspecified mononeuropathy of bilateral lower limbs]ChronicOther nervous system disorders (2 sources)Unspecified mononeuropathy of bilateral lower limbs; Translations: [Neuropathy involving both lowerextremities]ChronicOther nervous system disorders (1 source)Postoperative pain ; Translations: [Other acute postprocedural pain] Onset: 07-31-5024RtwgrxgzMmhqc non-traumatic joint disorders (1 source)Pain in right kneeEpisodicOther non-traumatic joint disorders (1 source)Pain in right hipEpisodicOther nutritional; endocrine; and metabolic disorders (1 source)Obese class II; Translations: [Body mass index (BMI) 35.0-35.9, adult] Onset: 93-90-9298XtkalxyAewnz nutritional; endocrine; and metabolic disorders (20 sources)Body mass index 30+ - fjbuerz67-06-0341PpkohyaYehdo nutritional; endocrine; and metabolic disorders (20 sources)Body mass index 40+ - severely obese; Translations: [Body mass index (BMI) 45.0-49.9, adult]Onset: 812345-15-1119WwxapuwJzrpi nutritional; endocrine; and metabolic disorders (2 sources)Body mass index (BMI) 45.0-49.9, adultOnset: 06-26-2021 Resolved: 51-88-3255NsyfwnoLbhlq nutritional; endocrine; and metabolic disorders (20 sources)Morbid obesity; Translations: [Morbid (severe) obesity due to excess calories]Onset: 90-64-4187RxqqodeJaxbb nutritional; endocrine; and metabolic disorders (8 sources)Localized amyloidosis; Translations: [Organ-limited amyloidosis] 33-16-7003PqitevtIjcns nutritional; endocrine; and metabolic disorders (4 sources)Organ-limited amyloidosis; Translations: [Other amyloidosis] 81-66-5971GqbrrwaEcbhn nutritional; endocrine; and metabolic disorders (4 sources)Severe obesity; Translations: [Class 2 severe obesity due to excess calories with serious comorbidity and body mass index (BMI) of 37.0 to 37.9 in adult ([facility])]84-86-9089KdaflahDycbs nutritional; endocrine; and metabolic disorders (2 sources)Morbid (severe) obesity due to excess calories; Translations: [Morbid (severe) obesity due to excess calories]Onset: 13-40-3414OgziryxTraqn screening for suspected conditions (not mental disorders or infectious disease) (1 source)Abnormal findings on diagnostic imaging of other specified body structures; Translations: [ABNORML FIND DX IMG OT BODY STRUC]Onset: 04-07-2022 ChronicOther skin disorders (20 sources)Impaired skin -66-5705SykcfwxbDtisnyp on above:Problem added on documentation of skin impairments.Peripheral and visceral atherosclerosis (5 sources)Peripheral vascular disease, unspecified; Translations: [PERIPHERAL VASCULAR DISEASE UNS]Onset: 76-22-3102GjdwchtSdpoowpnx heart disease (20 sources)Idiopathic pulmonary arterial hypertension ; Translations: [Primary pulmonary hypertension]ChronicResidual codes; unclassified (20 sources)Sleep apnea; Translations: [Sleep apnea, unspecified]Onset: 466926-75-4305RyuwbvmVenxlkod codes; unclassified (20 sources)Obstructive sleep apnea syndrome; Translations: [Obstructive sleep apnea (adult) (pediatric)]Onset: 37-41-0411VyhltzaAjyxlnlp codes; unclassified (11 sources)Obstructive sleep apnea (adult) (pediatric); Translations: [Obstructive sleep apnea (adult)(pediatric)]Onset: 06-26-2021 Resolved: 69-40-9515DwlplaoWqlcrnnf codes; unclassified (1 source)Other sleep apnea; Translations: [OTHER SLEEP APNEA]Onset: 04-25-2021 ChronicResidual codes; unclassified (7 sources)Patient encounter status; Translations: [Other specified health status]Onset: 53-53-8502BtezuhgaOmjaxtia codes; unclassified (20 sources)Insomnia; Translations: [Insomnia, unspecified]41-84-2415Zreenqti Residual codes; unclassified (12 sources)Insomnia, unspecified; Translations: [Insomnia, unspecified] 57-02-4923HzeqghgyKjhxxpij codes; unclassified (6 sources)H/O Spinal surgery; Translations: [Other specified postprocedural states]60-98-4935IltglowoHpvywhwu codes; unclassified (5 sources)Family history of aneurysm of artery; Translations: [Family history of ischemic heart disease and other diseases of the circulatory system] 49-27-1041ChucuaspHkynbony codes; unclassified (8 sources)Do not resuscitate; Translations: [Z66]Onset: 24-89-0193Yfmvastk Respiratory failure; insufficiency; arrest (adult) (1 source)Chronic hypoxemic respiratory failure; Translations: [Chronic respiratory failure with hypoxia]Onset: 15-97-1037BcdysjhWtaffmtbnv arthritis and related disease (4 sources)Rheumatoid arthritis, unspecified; Translations: [Rheumatoid arthritis without rheumatoid factor, unspecified site]Onset: 21-05-7924Wgsrofk Skin and subcutaneous tissue infections (5 sources)Cellulitis; Translations: [Cellulitis, unspecified]Onset: 11-30-2021 EpisodicSpondylosis; intervertebral disc disorders; other back problems (2 sources)Other spondylosis with myelopathy, thoracic region; Translations: [Other spondylosis with myelopathy, thoracic region]Onset: 01-97-2621Ynqsqao Spondylosis; intervertebral disc disorders; other back problems (7 sources)Pain in thoracic spine; Translations: [Spinal stenosis]Onset: 460068-32-6594XeczeajuQhkaqemnrvet (1 source)At risk for impaired skin -19-7649Ztpofjj on above:Problem added based on documenting Arnold score less than or equal to 18, rash, or malnutrition.Unclassified (16 sources)Extended spectrum beta-lactamase producing bacteria carrierOnset: 197477-23-2206Rovnbix on above:ESBL E coli in rt foot wound 08/14/2022 Unclassified (2 sources)Post-op; Translations: [Post-op]Onset: 92-71-2736Jggzzdljtcoh (1 source)computer terminal operator (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) use of antimetabolite agent; Translations: [computer terminal operator (current) use of antimetabolite agent]Onset: 54-95-6612Bgjsrlceohox (1 source)Patient encounter statusUnclassified (1 source)Z12.11 - Encounter for screening for malignant neoplasm of colon,A04.72 - Enterocolitis due to Clostridium difficile, not specified as recurrent,K52.9 - Noninfective gastroenteritis and colitis, unspecifiedViral infection (19 sources)Disease caused by 2019-nCoV; Translations: [COVID-19]09-09-2023 Episodic Past or Other Problems Problem ClassificationProblemDateDocumented DateEpisodic/ChronicAcquired foot deformities (1 source)Other deformities of toe(s) (acquired), right foot; Translations: [OTHER DEFORMITIES TOES ACQ RT FOOT]Onset: 65-94-6184JthvfcujMoajo and unspecified renal failure (2 sources)Acute kidney failure, unspecified; Translations: [Acute kidney failure, unspecified]Onset: 57-70-8945OcowzefxYtyutuodhbvyj of surgical procedures or medical care (20 sources)Postoperative complication; Translations: [Other postprocedural complications and disorders of digestive system]Onset: 11-81-7265Jotbpafl Immunizations and screening for infectious disease (2 sources)Encounter for screening for other viral diseases; Translations: [Encounter for screening for other viral diseases]Onset: 46-27-6390Llguoeqs Inflammation; infection of eye (except that caused by tuberculosis or sexually transmitteddisease) (2 sources)Unspecified scleritis, bilateral; Translations: [Unspecified scleritis, bilateral]Onset: 38-24-2059DdixzumpHlasjui and fatigue (2 sources)Weakness; Translations: [Weakness]Onset: 50-93-4155Acxhygit Nonspecific chest pain (20 sources)Chest pain; Translations: [Chest pain, unspecified]Onset: 07-23-2024 32-65-3963EroiwskiSaqzkgtdy or stenosis of precerebral arteries (17 sources)Occlusion and stenosis of unspecified carotid artery; Translations: [Carotid artery occlusion]Onset: 06-22-2013 Resolved: 916982-64-4009ExntfsuCzpt wounds of head; neck; and trunk (3 sources)Laceration without foreign body of scalp, initial encounter; Translations: [Open wound of abdomen]Onset: 95-94-3671EtbojnknYpsrc acquired deformities (1 source)Flexion deformity, right ankle and toes; Translations: [FLEXION DEFORMITY RT ANKLE AND TOES]Onset: 05-84-7511LodfpdirPsbwz connective tissue disease (4 sources)Pain in right foot; Translations: [PAIN IN RIGHT FOOT]Onset: 09-97-0882SejqtuwsAqfub connective tissue disease (2 sources)Diastasis recti; Translations: [Separation of muscle (nontraumatic), other site]Onset: 067690-66-1070QjtjknujCiriu connective tissue disease (2 sources)Myalgia, unspecified site; Translations: [Myalgia, unspecified site] Onset: 01-12-0666UvltdvlaZcmqp connective tissue disease (2 sources)Other symptoms and signs involving the musculoskeletal system; Translations: [Other symptoms and signs involving the musculoskeletal system] Onset: 00-97-6388UalcufdmJvwzd diseases of veins and lymphatics (2 sources)Venous insufficiency (chronic) (peripheral); Translations: [Venous insufficiency (chronic) (peripheral)]Onset: 45-71-4449FmiscyvePgqzv disorders of stomach and duodenum (8 sources)Gastroparesis; Translations: [Gastroparesis]Onset: 01-08-2022 84-24-2401XrixusmzLknpz eye disorders (2 sources)Unspecified corneal ulcer, bilateral; Translations: [Unspecified corneal ulcer, bilateral]Onset: 98-08-0383NocuolxqJsjtv eye disorders (2 sources)Unspecified corneal ulcer, unspecified eye; Translations: [Unspecified corneal ulcer, unspecified eye]Onset: 04-12-6404JbsrwzuyXibzpgaoaf disorders (not diabetes) (1 source)Other specified diseases of pancreas; Translations: [OTHER SPECIFIED DISEASES PANCREAS]Onset: 69-13-3372BewwasvcXxzaaerrz; thrombophlebitis and thromboembolism (20 sources)Deep venous thrombosis; Translations: [History of thromboembolism of vein]Onset: 10-05-2018 Resolved: 154815-54-5708ZvybvbiyTznocymow heart disease (2 sources)H/O: pulmonary embolus; Translations: [Personal history of pulmonary embolism]Onset: 941951-67-2869OjwjxuevCgmfiqft codes; unclassified (3 sources)Other specified postprocedural states; Translations: [Other postprocedural status]Onset: 947355-36-3970MqdrtqaoWrcjskcw codes; unclassified (2 sources)Pain, unspecified; Translations: [Pain, unspecified]Onset: 07-27-2024 EpisodicUnclassified (1 source)prison (current) use of antimetabolite agent; Translations: [prison (current) use of antimetabolite agent]Onset: 04-13-2024 Results Test NameValueInterpretationReference RangeFacilityBasic Metabolic Panelon 51-65-8842Fefdv gap [Moles/Vol]9.4 mmol/LNormal6.0-15.0The Un[facility] Health Physician GroupComment on above:Performed By: #### BMP, LIPASE, HEPATIC #### [facility] [address] [place] [address] USACalcium [Mass/Vol]8.9 mg/dLNormal8.6-10.3The [facility] Health Physician GroupComment on above:Performed By: #### BMP, LIPASE, HEPATIC #### [facility] [address] [place] [id number] USAChloride [Moles/Vol]101 mmol/QKruchz19-269Uok [facility] Physician GroupComment on above:Performed By: #### BMP, LIPASE, HEPATIC #### [facility] [address] [place] [id number] USACO2 [Moles/Vol]30.7 mmol/THiccmb16.0-31.0The [facility] Health Physician GroupComment on above:Performed By: #### BMP, LIPASE, HEPATIC #### [facility] [address] [place] [id number] USACreatinine [Mass/Vol]0.78 mg/dLNormal0.70-1.30The [facility] Health Physician GroupComment on above:Performed By: #### BMP, LIPASE, HEPATIC #### [place] [address] USACreatinine Clr Calc Bgycwfhj961.82NormalThe Unc Health Physician GroupComment on above:Result Comment: PERFORMED BY: [place] [address] PATHOLOGIST [employer] ALEAH BOYCE M.D.Performed By: #### BMP, LIPASE, HEPATIC #### [place] [address] USAGFR/1.73 sq M.predicted MDRD (S/P/Bld) [Vol rate/Area] mL/min/{1.73_m2}NormalThe Un[facility] Health Physician GroupComment on above:Performed By: #### BMP, LIPASE, HEPATIC #### [place] [address] USAGlucose [Mass/Vol]154 mg/rZQsfo56-207Ylj [facility] Physician GroupComment on above:Result Comment: Random Glucose Reference Range is dependent on time and content of last meal. Glucose of more than 200 mg/dL in a nonstressed, ambulatory subject supports the diagnosis of Diabetes Mellitus. ADA recommended reference rangePerformed By: #### BMP, LIPASE, HEPATIC #### [place] [address] USAPotassium [Moles/Vol]4.1 mmol/LNormal3.5-5.1The [facility] Health Physician GroupComment on above:Performed By: #### BMP, LIPASE, HEPATIC #### [place] [address] USASodium [Moles/Vol]137 mmol/UYrcvec652-081Znw [facility] Physician GroupComment on above:Performed By: #### BMP, LIPASE, HEPATIC #### [place] [address] USAUrea nitrogen [Mass/Vol]26 mg/dLHigh7-25The [facility] Health Physician GroupComment on above:Performed By: #### BMP, LIPASE, HEPATIC #### [place] [address] USAComprehensive Metabolic Panelon 11-83-4074Fkkhegy [Mass/Vol]3.3 g/dLLow3.5-5.7The [facility] Health Physician GroupComment on above: Performed By: #### CMP #### [place] [address] USAAlbumin/Globulin [Mass ratio]0.8 {ratio}NormalThe Un[facility] Health Physician GroupComment on above:Performed By: #### CMP #### [facility] [address] [place] [address] USAALP [Catalytic activity/Vol]80 U/BLazjmv23-108Mlk [facility] Physician GroupComment on above:Performed By: #### CMP #### [facility] [address] [place] [address] USAALT [Catalytic activity/Vol]16 U/LNormal7-52The [facility] Health Physician GroupComment on above:Performed By: #### CMP #### [place] [address] USAAnion gap [Moles/Vol]9.8 mmol/LNormal6.0-15.0The [facility] Health Physician GroupComment on above:Performed By: #### CMP #### [place] [address] USAAST [Catalytic activity/Vol]18 U/LWryffe55-75Mkn [facility] Physician GroupComment on above:Performed By: #### CMP #### [facility] [address] [place] [address] USABilirubin [Mass/Vol]0.6 mg/dLNormal0.3-1.0The [facility] Health Physician GroupComment on above:Performed By: #### CMP #### [facility] [address] [place] [address] USACalcium [Mass/Vol]8.7 mg/dLNormal8.6-10.3The [facility] Health Physician GroupComment on above:Performed By: #### CMP #### [place] [address] USAChloride [Moles/Vol]102 mmol/CCzrgqo59-813Nvh [facility] Physician GroupComment on above:Performed By: #### CMP #### [place] [address] USACO2 [Moles/Vol]29.0 mmol/OEchghn41.0-31.0The [facility] Health Physician GroupComment on above:Performed By: #### CMP #### [place] [address] USACreatinine [Mass/Vol]0.73 mg/dLNormal0.70-1.30The [facility] Health Physician GroupComment on above:Performed By: #### CMP #### [place] [address] USACreatinine Clr Calc Hmtxdcpq653.26NormHCA Florida [facility] Hospital Physician GroupComment on above:Result Comment: PERFORMED BY: [place] [address] PATHOLOGIST [employer] ALEAH BOYCE M.D.Performed By: #### CMP #### [place] [address] USAGFR/1.73 sq M.predicted MDRD (S/P/Bld) [Vol rate/Area] mL/min/{1.73_m2}NormalThe [facility] Health Physician GroupComment on above:Performed By: #### CMP #### [place] [address] USAGlobulin (S) [Mass/Vol]4.3 g/dLNoWake Forest Baptist Health [facility] Physician Methodist Rehabilitation CenterComment on above:Performed By: #### CMP #### [place] [address] USAGlucose [Mass/Vol]111 mg/hJJved77-897Zhb [facility] Physician GroupComment on above:Result Comment: Random Glucose Reference Range is dependent on time and content of last meal. Glucose of more than 200 mg/dL in a nonstressed, ambulatory subject supports the diagnosis of Diabetes Mellitus. ADA recommended reference rangePerformed By: #### CMP #### [place] [address] USAPotassium [Moles/Vol]3.8 mmol/LNormal3.5-5.1The [facility] Health Physician GroupComment on above:Performed By: #### CMP #### [place] [address] USAProtein [Mass/Vol]7.6 g/dLNormal6.4-8.9The [facility] Health Physician GroupComment on above:Performed By: #### CMP #### [place] [address] USASodium [Moles/Vol]137 mmol/GZjrkyo434-094Zap [facility] Physician GroupComment on above:Performed By: #### CMP #### [place] [address] USAUrea nitrogen [Mass/Vol]21 mg/dLNormal7-25The [facility] Health Physician GroupComment on above:Performed By: #### CMP #### [place] [address] USABasic Metabolic Panelon 00-54-4994Amqmgthnaj Clr Calc Hmjfpsba469.25NormalThSt. Luke's Jerome Physician GroupComment on above:Result Comment: PERFORMED BY: [place] [address] PATHOLOGIST [employer] ALEAH BOYCE M.D.Performed By: #### BMP #### [place] [address] USAGFR/1.73 sq M.predicted MDRD (S/P/Bld) [Vol rate/Area] mL/min/{1.73_m2}NormalThe [facility] Health Physician GroupComment on above:Performed By: #### BMP #### [place] [address] USACalcium [Mass/volume] in Serum or PlasmaOrdered By: Ehab Eltahawmonika on 92-04-6541Fkpjneg [Mass/Vol]8.6 mg/dLNormal8.6-10.3FSt. Mary's Medical CenterComment on above:Performed By: #### BMP #### [place] [address] USACarbon dioxide, total [Moles/volume] in Serum or Plasma Ordered By: Ehab Eltahawmonika on 24-56-2690XH4 [Moles/Vol]31.0 mmol/AGaqlgi53.0-31.0 [facility] DaytonComment on above:Performed By: #### BMP #### [facility] [address] [place] [address] USAChloride [Moles/volume] in Serum or PlasmaOrdered By: Janet Jacquestahawmonika on 16-15-6757Kcdddvuw [Moles/Vol]102 mmol/KCvckew97-090WhpkjvyxlKindred Hospital DaytonComment on above:Performed By: #### BMP #### [facility] [address] [place] [address] USACreatinine [Mass/volume] in Serum or PlasmaOrdered By: Janet Otero on 56-64-6440Amsahetxiy [Mass/Vol]0.73 mg/dLNormal0.70-1.30 [facility] DaytonComment on above:Performed By: #### BMP #### [facility] [address] [place] [address] USAGlomerular filtration rate [Volume Rate/Area] in Serum, Plasma or Blood by CreatinineOrdered By: Janet Otero on 05-44-6567Abzjighokb filtration rate [Volume Rate/Area] in Serum, Plasma or Blood by Creatinine> 60.0 mL/MinKindred Hospital DaytonGlucose [Mass/volume] in Serum or Plasma Ordered By: Janet Otero on 11-32-6185Qtisisl [Mass/Vol]115 mg/uAFmpb81-079 [facility] DaytonComment on above:ADA recommended reference rangeRandom Glucose Reference Range is dependent on time and content of last meal. Glucose of more than 200 mg/dL in a nonstressed, ambulatory subject supports the diagnosisof Diabetes Mellitus.Result Comment: Random Glucose Reference Range is dependent on time and content of last meal. Glucose of more than 200 mg/dL in a nonstressed, ambulatory subject supports the diagnosis of Diabetes Mellitus. ADA recommended reference rangePerformed By: #### BMP #### [facility] [address] [place] [id number] USANo Panel InformationOrdered By: Janet Otero on 81-93-4001Nyuwdhju Creatinine Clearance (Ggro446.25[facility] Hospital DaytonPotassium [Moles/volume] in Serum or PlasmaOrdered By: Ehab Eltahawy on 64-22-3882Tqfhjlhyr [Moles/Vol]4.3 mmol/LNormal3.5-5.1FSt. Mary's Medical CenterComment on above:Performed By: #### BMP #### [facility] [address] [place] [address] USASerum or plasma anion gap determinationOrdered By: Ehab Eltahawy on 28-73-6458Iugrt gap [Moles/Vol]7.3 mmol/LNormal6.0-15.0[facility] DaytonComment on above:Performed By: #### BMP #### [facility] [address] [place] [address] USASodium [Moles/volume] in Serum or PlasmaOrdered By: Ehab Eltahawy on 75-71-1322Aoapzf [Moles/Vol]136 mmol/VOstkfz519-355MegagupwtKindred Hospital DaytonComment on above:Performed By: #### BMP #### [facility] [address] [place] [address] USAUrea nitrogen [Mass/volume] in Serum or PlasmaOrdered By: Ehab Eltahawy on 18-13-0127Fwsh nitrogen [Mass/Vol]19 mg/dLNormal7-25[facility] DaytonComment on above:Performed By: #### BMP #### [facility] [address] [place] [address] USAOrders Onlyon 75-50-6844Nrmrdz OnlyNormalUniversity of Saint David'S Round Rock Medical CenterCoding Queryon [id number] QueryCoding Query From: Van HERBERT, Keren To: Javon Edwards DO; Cc: Kristel Banda; Sent: 01/18/2025 11:22:15 EDT ! Subject: Coding Query Due Date/Time: 01/24/2025 11:21:00 EDT Caller Name: MATT WATERMAN; Caller Number: H , M Documentation in the medical record indicates that this patient has been identified to have and/or is being treated for wound/ulcer of the following site Buttock/coccygeal region However, it is not clear if this is a non pressure ulcer, pressure ulcer, and if it is considered present on admission. H&G-60-zhhs-old morbidly obese male with history of chronic combined systolic and diastolic congestive heart failure, paroxysmal atrial fibrillation on apixaban, coronary artery diseasestatus post stent x2, COPD, obstructive sleep apnea on BiPAP, chronic hypoxic respiratory failure on as needed OXYGEN, tpu-gemnsjj-onjouconc diabetes mellitus, hypertension, hyperlipidemia, bipolar disorder, BPH, anxiety, status post right foot TMA in 01/2023 w/OM. Chronic bilateral venous stasis. Nursing [place] 01/03 pressure ulcer coccyx bilateral, deep, present on admission, edges seperated, open to air 01/03 progress note-4. Wound of buttock (S31.809A: Unspecified open wound of unspecified buttock, initial encounter) New since admission however pt states this area was healed and popped open last night when he turned in bed states this has happened in the past. Wound care-consult pending Wound culture sent - pus like drainage from site ID pending WIll obtain a donut for sitting from OB Consider sitz bath unless contraindicated by wound. 01/03 wound progress note has blister that pooped and location as rle 01/05 surgeon agqjwrq-09-szgm-old male admitted with cellulitis of the right lower extremity also found to have stage III coccygeal wound. Coccygeal wound stage III the 2 x 3 x 0.2 cm right lower extremity wound 8 x 8 x 0.1 cm 4. Wound of buttock (S31.809A: Unspecified open wound of unspecified buttock, initial encounter) Subcutaneous debridement of wound excisional debridement performed at bedside see attached note also recommend Selvin to wound. Change daily. 01/05 progress note-4. Wound of buttock (S31.809A: Unspecified open wound of unspecified buttock, initial encounter) New since admission however pt states this area was healed and popped open last night when he turned in bed states this has happened in the past. -> see pics in media file -Donutfor sitting from OB -Consider sitz bath unless contraindicated by wound Consult ID: -WCx. - cont. incubation -IV abx as above Consult wound care: -01/05: Subcutaneous and excisional debridement performed at bedside???see attached note -Daily Selvin drng. 01/06 progress note- Integumentary: Warm, dry, + RLE diffuse edema and tenderness to palpation extending from knee to ankle - worsening today. 5 cm x 2 cm linear region of non circumferential erythemaand increased warmth just inferior to the right knee - worsening today. Neg. Homans' sign., no fluctuance/lymphadenitis. Chronic b/l LE venous stasis. 5 cm skin tear overlying the mid R fibula with mi ld clear drainage. + neurovasc. intact. + R TMA w/ wound on top of stump. + deep skin tear in gluteal cleft from base of coccyx/ top of buttocks + drng. - this wound was not visualized today. 01/05 wound progress note-Extractor Operator Solvent Process performed wound care on patients coccyx, right leg and foot. Photoswere obtained and in chart. Wound care performed based on orders in chart. notified wound care about clarifying appropriate orders for each wound. dc summary-4. Wound of buttock, 01/03/2025 General surgical consultation was added because he also had a stage III coccygeal wound. He had a bedside debridement of the wound and recommended Selvin daily to the buttocks. The wound culture did grow out MRSA as mentioned. Wound care was also consulted. Integumentary: Warm, dry, + RLE diffuse edema and tenderness to palpation extending from knee to ankle - slow improvement. + non circumferential erythema and increased warmth just inferior to the right knee - mod. improvement today. no fluctuance/lymphadenitis. Dressing to RLE intact. + R TMA w/ wound on bottom of stump - + deep skin tear in distal gluteal cleft from base of coccyx/ top of buttocks +mild to mod amt bloody drng. History 07/27/2024 discharge summary 16. Decubitus ulcer of coccyx 07/26/2024 progress note- 16. Decubitus ulcer of coccyx (L89.159: Pressure ulcer of sacral region, unspecified stage) Pressure ulcer, present on admit Stage III with tunneling -Consult wound- Dr Zepeda has seen -> chronic wound, Subcutaneous debridement of wound at the bedside. Recommend Selvin change dressings every other day -Remains fever free, no leukocytosis Based on your clinical judgment, please clarify the ulcer type: Chronic Ulcer (Non-Pressure) of Skin, Underlying Condition: [___]Atherosclerosis [___]Chronic Venous Hypertension [___]Diabetic Ulcer [___]Varicos (more content not included)...[facility] General Message Officeon [id number] Message OfficeGeneral Message Office --- --- --- --- --- --- --- --- --- From: [facility], DirectInbox To: MATT WATERMAN Sent: 01/15/25 02:30:41 AM EDT Subject: Discharge Summary Ready to View A summary regarding your recent visit is available in the Documents section of your health record.[facility] HospitalCapillary Glucose POCon [id number] [Mass/Vol]159 mg/[id number]-Hyde Memorial HospitalComment on above:Result Comment: Notified RN/MDPerformed By: #### [id number] #### [facility] [address] [place] [id number] Clinical Summaryon [id number] Clinical SummaryInpatient Clinical Summary [address] [address] Clinical Summary Person Information: Name: MATT WATERMAN Age: 64 Years : 1960 Sex: Male PCP: SURAJ LIZ MD Marital Status: Life Partner Phone: [phone] Race: White Ethnicity: Non- or Language: Sao T[place]an Visit Id: Visit Reason: Fever; Malaise; Cellulitis - Leg; CELLULITIS Speciality: Acuity: Enc Type: Inpatient Med Service: Medical Arrival: 01/02/2025 12:01:34 Discharge: Dispo Type: Admitted as IP to this [facility] Address: [address] [place] [address] DR NGO [place] [id number] Provider Notes: Diagnosis: 1:Cellulitis of right leg without foot; 2:ISTAP type 2 skin tear of right lower leg; 3:History of amputation; 4:Wound of buttock; 5:Anemia; 6:Diarrheal stools; 7:Hypokalemia; 7:Hypokalemia; 7:Hypokalemia; 8:ROBYN on CPAP; 9:Chronic hypoxic respiratory failure; 10:COPD without exacerbation; 10:COPD without exacerbation; 11:PAF (paroxysmal atrial fibrillation); 12:Chronic combined systolic and diastolic heart failure; 13:Coronary artery disease; 14:Hypertension; 15:Hyperlipidemia; 16:Diabetes; 17:Bipolar disorder; 18:Anxiety and depression; 19:Morbid obesity due to excess calories; 20:On deep vein thrombosis (DVT) prophylaxis Problems Active MRSA (methicillin resistant staph aureus) culture positive (01/02/2025) ESBL 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 (08/14/2022) Obstructive sleep apnea Osteomyelitis Anxiety Diabetic neuropathy Bipolar disorder BPH (benign prostatic hyperplasia) Aortic root dilation Chronic anemia ROBYN on CPAP Chronic diastolic heart failure Atrial fibrillation Chronic systolic heart failure Coronary artery disease Hypertension Diabetes Hyperlipidemia PAF (paroxysmal atrial fibrillation) History of DVT in adulthood Depression with anxiety BPH without urinary obstruction Morbid obesity due to excess calories COPD without exacerbation Chronic GERD Diabetic peripheral neuropathy Urgency incontinence Incomplete bladder emptying Flank pain BPH with urinary obstruction Nocturia Incontinence without sensory awareness BMI 35.0-35.9,adult Personal history of kidney stones Urinary retention Smoking Status: Never Smoker Functional Status: Sensory Deficits: History of Falls: Mobility Assistance Prior to Admission: ADLs: Minimal assistance Current Level of Assistance for Self-Care/Mobility: Cognitive Status: Oriented x 3 Allergies sulfa drugs (rash) Phenergan (Shortness of Breath) GoLYTELY (rash) Reglan (Twitching) (Rash) Measurements: Height: 180.34 cm Weight: 124.9 kg Blood Pressure: 177 mmHg / 82 mmHg BMI: 36.68 kg/m2 Procedures No Procedures Performed or Documented Immunizations No Immunizations Documented This Visit Final Med List: amoxicillin-clavulanate (amoxicillin-clavulanate 875 mg-125 mg Tab) 1 Tablets By Mouth 2 times a day for 3 Days. Refills: 0. apixaban (Eliquis 5 mg oral tablet) 1 Tablets By Mouth 2 times a day. aripiprazole (Abilify 5 mg Tab) 1 Tablets By Mouth every day. aspirin (aspirin 81 mg Chew Tab) 1 Tablets Chewed every day. atorvastatin (atorvastatin 80 mg Tab) 1 Tablets By Mouth every day. bumetanide (bumetanide 1 mg Tab) 3 Tablets By Mouth 2 times a day. cholecalciferol 25 Microgram By Mouth every day. dapagliflozin (Farxiga 10 mg oral tablet) 1 Tablets By Mouth every day. daridorexant (Quviviq 25 mg oral tablet) 1 Tablets By Mouth at bedtime as needed Insomnia. diazepam (Valium 5 mg Tab) 1 Tablets By Mouth once a day (at bedtime) as needed Other (see comment). diclofenac topical (diclofenac topical 1% gel) 1 Application Topical 4 times a day as needed for pain. entecavir (entecavir 0.5 mg oral tablet) 1 Tablets By Mouth every day. 2 hours before or after meals. ergocalciferol (Vitamin D2) 1,250 Microgram By Mouth every week. ferrous sulfate 325 Milligram By Mouth every day. folic acid 1 Milligram By Mouth every day. gabapentin 600 Milligram By Mouth 3 times a day. isosorbide mononitrate (isosorbide mononitrate 30 mg ER Tab) 3 Tablets By Mouth once a day (in the morning). lamotrigine 50 Milligram By Mouth every other day. metformin (metformin 500 mg Tab) 1 Tablets By Mouth 2 times a day. methotrexate 17.5 Milligram By Mouth every week. metolazone (metolazone 2.5 mg Tab) 1 Tablets By Mouth every day as needed Other (see comment). metoprolol (metoprolol succinate 25 mg ER Tab) 1 Tablets By Mouth every day. naloxone 4 Milligram Nasal Inhalation Once. nitroglycerin (Nitro 0.4 mg Tab) 1 Tablets Sublingual every 5 minutes as needed Chest pain. oxycodone (oxyCODONE 5 mg Tab) 1 Tablets By Mouth 4 times a day. oxycodone (Xtampza ER 18 mg oral capsule, extended release) 1 Capsules By Mouth every 12 hours. Refills: 0. pantoprazole (Pantoprazole [address] Tab) 1 Tablets By M (more content not included)...NormalMccullough-Hyde Memorial HospitalInpatient Clinical SummaryInpatient Clinical Summary [address] [id number] Clinical Summary Person Information: Name: MATT WATERMAN Age: 64 Years : 1960 Sex: Male PCP: SURAJ LIZ MD Marital Status: Life Partner Phone: [phone] Race: White Ethnicity: Non- or Language: [place] Visit Id: Visit Reason: Fever; Malaise; Cellulitis - Leg; CELLULITIS Speciality: Acuity: Enc Type: Inpatient Med Service: Medical Arrival: 01/02/2025 12:01:34 Discharge: Dispo Type: Admitted as IP to this [facility] Address: [address] [place] [address] DR NGO [place] [id number] Provider Notes: Diagnosis: 1:Cellulitis of right leg without foot; 2:ISTAP type 2 skin tear of right lower leg; 3:History of amputation; 4:Wound of buttock; 5:Anemia; 6:Diarrheal stools; 7:Hypokalemia; 7:Hypokalemia; 7:Hypokalemia; 8:ROBYN on CPAP; 9:Chronic hypoxic respiratory failure; 10:COPD without exacerbation; 10:COPD without exacerbation; 11:PAF (paroxysmal atrial fibrillation); 12:Chronic combined systolic and diastolic heart failure; 13:Coronary artery disease; 14:Hypertension; 15:Hyperlipidemia; 16:Diabetes; 17:Bipolar disorder; 18:Anxiety and depression; 19:Morbid obesity due to excess calories; 20:On deep vein thrombosis (DVT) prophylaxis Problems Active MRSA (methicillin resistant staph aureus) culture positive (01/02/2025) ESBL 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 (08/14/2022) Obstructive sleep apnea Osteomyelitis Anxiety Diabetic neuropathy Bipolar disorder BPH (benign prostatic hyperplasia) Aortic root dilation Chronic anemia ROBYN on CPAP Chronic diastolic heart failure Atrial fibrillation Chronic systolic heart failure Coronary artery disease Hypertension Diabetes Hyperlipidemia PAF (paroxysmal atrial fibrillation) History of DVT in adulthood Depression with anxiety BPH without urinary obstruction Morbid obesity due to excess calories COPD without exacerbation Chronic GERD Diabetic peripheral neuropathy Urgency incontinence Incomplete bladder emptying Flank pain BPH with urinary obstruction Nocturia Incontinence without sensory awareness BMI 35.0-35.9,adult Personal history of kidney stones Urinary retention Smoking Status: Never Smoker Functional Status: Sensory Deficits: History of Falls: Mobility Assistance Prior to Admission: ADLs: Minimal assistance Current Level of Assistance for Self-Care/Mobility: Cognitive Status: Oriented x 3 Allergies sulfa drugs (rash) Phenergan (Shortness of Breath) GoLYTELY (rash) Reglan (Twitching) (Rash) Measurements: Height: 180.34 cm Weight: 124.9 kg Blood Pressure: 177 mmHg / 82 mmHg BMI: 36.68 kg/m2 Procedures No Procedures Performed or Documented Immunizations No Immunizations Documented This Visit Final Med List: apixaban (Eliquis 5 mg oral tablet) 1 Tablets By Mouth 2 times a day. aripiprazole (Abilify 5 mg Tab) 1 Tablets By Mouth every day. aspirin (aspirin 81 mg Chew Tab) 1 Tablets Chewed every day. atorvastatin (atorvastatin 80 mg Tab) 1 Tablets By Mouth every day. bumetanide (bumetanide 1 mg Tab) 3 Tablets By Mouth 2 times a day. cholecalciferol 25 Microgram By Mouth every day. dapagliflozin (Farxiga 10 mg oral tablet) 1 Tablets By Mouth every day. daridorexant (Quviviq 25 mg oral tablet) 1 Tablets By Mouth at bedtime as needed Insomnia. diazepam (Valium 5 mg Tab) 1 Tablets By Mouth once a day (at bedtime) as needed Other (see comment). diclofenac topical (diclofenac topical 1% gel) 1 Application Topical 4 times a day as needed for pain. entecavir (entecavir 0.5 mg oral tablet) 1 Tablets By Mouth every day. 2 hours before or after meals. ergocalciferol (Vitamin D2) 1,250 Microgram By Mouth every week. ferrous sulfate 325 Milligram By Mouth every day. folic acid 1 Milligram By Mouth every day. gabapentin 600 Milligram By Mouth 3 times a day. isosorbide mononitrate (isosorbide mononitrate 30 mg ER Tab) 3 Tablets By Mouth once a day (in the morning). lamotrigine 50 Milligram By Mouth every other day. metformin (metformin 500 mg Tab) 1 Tablets By Mouth 2 times a day. methotrexate 17.5 Milligram By Mouth every week. metolazone (metolazone 2.5 mg Tab) 1 Tablets By Mouth every day as needed Other (see comment). metoprolol (metoprolol succinate 25 mg ER Tab) 1 Tablets By Mouth every day. naloxone 4 Milligram Nasal Inhalation Once. nitroglycerin (Nitro 0.4 mg Tab) 1 Tablets Sublingual every 5 minutes as needed Chest pain. oxycodone (oxyCODONE 5 mg Tab) 1 Tablets By Mouth 4 times a day. oxycodone (Xtampza ER 18 mg oral capsule, extended release) 1 Capsules By Mouth every 12 hours. Refills: 0. pantoprazole (Pantoprazole [address] Tab) 1 Tablets By Mouth every day. potassium chloride (potassium chloride 20 mEq ER Tab) 3 Tablets By Mouth 2 times a day. semaglutide (Ozempi (more content not included)...[facility] Hospital[facility] Patient Summaryon [id number] Patient SummaryInpatient Patient Summary MATT WATERMAN :1960 Visit Date:01/02/2025 Inpatient Discharge Instructions Your Care Team Admitting Physician - Javon Edwards DO Consulting Physician - Josselyn No, Ronaldo Epperson DPM, Ramiro Silva [facility] Wound, XXXX Reason for Your Visit patient presents with cellulitis to right lower leg with fevers and generalized illness felling. hxdiabetes and multiple foot/toe amputations for infections Your Diagnosis Cellulitis of right leg without foot ISTAP type 2 skin tear of right lower leg History of amputation Wound of buttock Anemia Diarrheal stools Hypokalemia, Hypokalemia, Hypokalemia ROBYN on CPAP Chronic hypoxic respiratory failure COPD without exacerbation, COPD without exacerbation PAF (paroxysmal atrial fibrillation) Chronic combined systolic and diastolic heart failure Coronary artery disease Hypertension Hyperlipidemia Diabetes Bipolar disorder Anxiety and depression Morbid obesity due to excess calories On deep vein thrombosis (DVT) prophylaxis Cellulitis - Leg DNR (do not resuscitate) Fever Malaise Tests Performed CT Lower Extremity w/ Contrast Right KUB Lower Extremity CT w/ Contrast Right MRI Foot w/ + w/o Contrast Right Tibia/Fibula XR Right US Lower Extremity Venous Duplex Right XR Chest Single View This Is Your Medications List amoxicillin-clavulanate (amoxicillin-clavulanate 875 mg-125 mg Tab) apixaban (Eliquis 5 mg oral tablet) aripiprazole (Abilify 5 mg Tab) aspirin (aspirin 81 mg Chew Tab) atorvastatin (atorvastatin 80 mg Tab) bumetanide (bumetanide 1 mg Tab) cholecalciferol dapagliflozin (Farxiga 10 mg oral tablet) daridorexant (Quviviq 25 mg oral tablet) diazepam (Valium 5 mg Tab) diclofenac topical (diclofenac topical 1% gel) entecavir (entecavir 0.5 mg oral tablet) ergocalciferol (Vitamin D2) ferrous sulfate folic acid gabapentin isosorbide mononitrate (isosorbide mononitrate 30 mg ER Tab) lamotrigine metformin (metformin 500 mg Tab) methotrexate metolazone (metolazone 2.5 mg Tab) metoprolol (metoprolol succinate 25 mg ER Tab) naloxone nitroglycerin (Nitro 0.4 mg Tab) oxycodone (Xtampza ER 18 mg oral capsule, extended release) oxycodone (oxyCODONE 5 mg Tab) pantoprazole (Pantoprazole [address] Tab) potassium chloride (potassium chloride 20 mEq ER Tab) semaglutide (Ozempic (1 mg dose)) sertraline spironolactone (spironolactone 50 mg Tab) valacyclovir [Image Removed: STOP]Stop taking these medications divalproex sodium (divalproex sodium 125 mg Cap-EC) Procedure History Wound debridement (08/13/2022), Incision AND drainage (06/20/2022), Incision AND drainage (05/23/2022), Amputation great toe (04/16/2022), Skin graft (11/02/2019), Amputated toe, Appendectomy, Colonoscopy, Cystoscopy, Gastric bypass. Discharge Vitals Temperature (Oral) 36.4 ???C Heart Rate (Apical) 88 Respiratory Rate 18 Blood Pressure 177/82 Height 180.34 cm Weight 121 kg What to do next Instructions From Your Doctor Event Name Event Result Discharge Activity Ambulate as tolerated Discharge Restrictions No restrictions Discharge Diet(s) Calorie Controlled- 1800 Calorie Diet Discharge Instructions Selvin every other day to buttocks New Follow Up Appointments after Discharge Follow Up with Wound clinic with January 19 When: Follow Up with SURAJ LIZ When: Comments: Call for followup appointment Where: [address] [place] [address]- Business (1) Medications What How Much When Instructions Next Dose New amoxicillin-clavulanate (amoxicillin-clavulanate 875 mg-125 mg Tab) 1 Tablets By Mouth 2 times a day Duration: 3 Days Pickup at [id number] 9pm 01/14/25 Changed gabapentin 600 Milligram By Mouth 3 times a day 2pm, 10pm 01/14/25 Changed isosorbide mononitrate (isosorbide mononitrate 30 mg ER Tab) 3 Tablets By Mouth Once a day (in the morning) 9a01/15/25 Changed lamotrigine 50 Milligram By Mouth Every other day 01/15/25 Changed metoprolol (metoprolol succinate 25 mg ER Tab) 1 Tablets By Mouth Every day 01/15/25 Changed spironolactone (spironolactone 50 mg Tab) 1 Tablets By Mouth Every day 01/15/25 Unchanged apixaban (Eliquis 5 mg oral tablet) 1 Tablets By Mouth 2 times a day 9pm 01/14/25 Unchanged aripiprazole (Abilify 5 mg Tab) 1 Tablets By Mouth Every day 01/15/25 Unchanged aspirin (aspirin 81 mg Chew Tab) 1 Tablets Chewed Every day 01/15/25 Unchanged atorvastatin (atorvastatin 80 mg Tab) 1 Tablets By Mouth Every day 01/15/25 Unchanged bumetanide (bumetanide 1 mg Tab) 3 Tablets By Mouth 2 times a day 5pm 01/14/25 Unchanged cholecalciferol 25 Microgram By Mouth Every day 01/15/25 Unchanged dapagliflozin (Farxiga 10 mg oral tablet) 1 Tablets By Mouth Every day 01/15/25 Unchanged daridorexant (Quviviq 25 mg oral tablet) 1 (more content not included)...[facility] SummaryInpatient Patient Summary [place] [address] Patient Discharge Instructions PERSON INFORMATION Name: MATT WATERMAN Date of : 1960 Current Date: 01/14/2025 09:08:25 PHYSICIANS Admitting Physician: Javon Edwards DO Primary Care Physician: SURAJ LIZ MD PCP Comment: Discharge Diagnosis: 1:Cellulitis of right leg without foot; 2:ISTAP type 2 skin tear of right lower leg; 3:History of amputation; 4:Wound of buttock; 5:Anemia; 6:Diarrheal stools; 7:Hypokalemia; 7:Hypokalemia; 7:Hypokalemia; 8:ROBYN on CPAP; 9:Chronic hypoxic respiratory failure; 10:COPD without exacerbation; 10:COPD without exacerbation; 11:PAF (paroxysmal atrial fibrillation); 12:Chronic combined systolic and diastolic heart failure; 13:Coronary artery disease; 14:Hypertension; 15:Hyperlipidemia; 16:Diabetes; 17:Bipolar disorder; 18:Anxiety and depression; 19:Morbid obesity due to excess calories; 20:On deep vein thrombosis (DVT) prophylaxis Condition at Discharge: Stable MATT WATERMAN has been given the following list of follow-up instructions, prescriptions,and patient education materials: PATIENT FOLLOW-UP INFORMATION Diet: Calorie Controlled- 1800 Calorie Diet Discharge Activity: Ambulate as tolerated Discharge Restrictions: No restrictions Wound Care Instructions: Remove Your Dressing In Days Call Your Doctor For: IF UNABLE TO CONTACT YOUR PHYSICIAN AND YOU FEEL IT IS AN EMERGENCY, GO TO THE NEAREST EMERGENCY ROOM OR CALL 911 Home Treatment: Devices/Equipment: Cane, Elevated toilet seat, Hospital bed with trapeze, Rollator Walker, Shower chair Special Services: Additional Instructions: Selvin every other day to [facility] Primary Care Physician to provide the following pending test results: Follow up: With: Address: When: Wound clinic with January 19 With: Address: When: SURAJ LIZ [address] [place] [address] [facility] (1) Comments: Call for followup appointment In the event that this physician does not participate in your insurance network, please consult with your insurance company to find a nearby participating provider. Comment: ILEE BOBBY J, have received the attached patient education materials/instructions andhave verbalized understanding: Patient Signature Date Clinican/Nurse Signature Date HERE ARE THE MEDICATION CHANGES THAT OCCURRED DURING YOUR HOSPITAL STAY New Medications [facility], [address] [id number], [phone] amoxicillin-clavulanate (amoxicillin-clavulanate 875 mg-125 mg Tab) 1 Tablets By Mouth 2 times a day for 3 Days. Refills: 0. Last Dose: Next Dose: Medications to Continue Taking That Have Changed Other Medications START: gabapentin 600 Milligram By Mouth 3 times a day. Last Dose: Next Dose: STOP: gabapentin (gabapentin 800 mg Tab) 1 Tablets By Mouth 3 times a day. START: isosorbide mononitrate (isosorbide mononitrate 30 mg ER Tab) 3 Tablets By Mouth once a day (in the morning). Last Dose: Next Dose: STOP: isosorbide mononitrate (isosorbide mononitrate 30 mg ER Tab) 1 Tablets By Mouth once a day (in the morning). START: lamotrigine 50 Milligram By Mouth every other day. Last Dose: Next Dose: STOP: lamotrigine 50 Milligram By Mouth every day. START: metoprolol (metoprolol succinate 25 mg ER Tab) 1 Tablets By Mouth every day. Last Dose: Next Dose: START: spironolactone (spironolactone 50 mg Tab) 1 Tablets By Mouth every day. Last Dose: Next Dose: Medications to Continue with No Changes Other Medications apixaban (Eliquis 5 mg oral tablet) 1 Tablets By Mouth 2 times a day. Last Dose: Next Dose: aripiprazole (Abilify 5 mg Tab) 1 Tablets By Mouth every day. Last Dose: Next Dose: aspirin (aspirin 81 mg Chew Tab) 1 Tablets Chewed every day. Last Dose: Next Dose: atorvastatin (atorvastatin 80 mg Tab) 1 Tablets By Mouth every day. Last Dose: Next Dose: bumetanide (bumetanide 1 mg Tab) 3 Tablets By Mouth 2 times a day. Last Dose: Next Dose: cholecalciferol 25 Microgram By Mouth every day. Last Dose: Next Dose: dapagliflozin (Farxiga 10 mg oral tablet) 1 Tablets By Mouth every day. Last Dose: Next Dose: (more content not included)...[facility] SummaryInpatient Patient Summary [address] [address] Patient Discharge Instructions PERSON INFORMATION Name: BECKShelliBONMATT BAEZ Francisco J Date of : 1960 Current Date: 01/14/2025 08:41:01 PHYSICIANS Admitting Physician: Javon Edwards DO Primary Care Physician: SURAJ LIZ MD PCP Comment: Discharge Diagnosis: 1:Cellulitis of right leg without foot; 2:ISTAP type 2 skin tear of right lower leg; 3:History of amputation; 4:Wound of buttock; 5:Anemia; 6:Diarrheal stools; 7:Hypokalemia; 7:Hypokalemia; 7:Hypokalemia; 8:ROBYN on CPAP; 9:Chronic hypoxic respiratory failure; 10:COPD without exacerbation; 10:COPD without exacerbation; 11:PAF (paroxysmal atrial fibrillation); 12:Chronic combined systolic and diastolic heart failure; 13:Coronary artery disease; 14:Hypertension; 15:Hyperlipidemia; 16:Diabetes; 17:Bipolar disorder; 18:Anxiety and depression; 19:Morbid obesity due to excess calories; 20:On deep vein thrombosis (DVT) prophylaxis Condition at Discharge: MATT WATERMAN has been given the following list of follow-up instructions, prescriptions,and patient education materials: PATIENT FOLLOW-UP INFORMATION Diet: Discharge Activity: Discharge Restrictions: Wound Care Instructions: Remove Your Dressing In Days Call Your Doctor For: IF UNABLE TO CONTACT YOUR PHYSICIAN AND YOU FEEL IT IS AN EMERGENCY, GO TO THE NEAREST EMERGENCY ROOM OR CALL 911 Home Treatment: Devices/Equipment: Cane, Elevated toilet seat, Hospital bed with trapeze, Rollator Walker, Shower chair Special Services: Additional Instructions: Primary Care Physician to provide the following pending test results: Follow up: In the event that this physician does not participate in your insurance network, please consult with your insurance company to find a nearby participating provider. Comment: LEE Amaya BOBBY J, have received the attached patient education materials/instructions andhave verbalized understanding: Patient Signature Date Clinican/Nurse Signature Date HERE ARE THE MEDICATION CHANGES THAT OCCURRED DURING YOUR HOSPITAL STAY Medications to Continue Taking That Have Changed Other Medications START: gabapentin 600 Milligram By Mouth 3 times a day. Last Dose: Next Dose: STOP: gabapentin (gabapentin 800 mg Tab) 1 Tablets By Mouth 3 times a day. START: isosorbide mononitrate (isosorbide mononitrate 30 mg ER Tab) 3 Tablets By Mouth once a day (in the morning). Last Dose: Next Dose: STOP: isosorbide mononitrate (isosorbide mononitrate 30 mg ER Tab) 1 Tablets By Mouth once a day (in the morning). START: lamotrigine 50 Milligram By Mouth every other day. Last Dose: Next Dose: STOP: lamotrigine 50 Milligram By Mouth every day. START: metoprolol (metoprolol succinate 25 mg ER Tab) 1 Tablets By Mouth every day. Last Dose: Next Dose: START: spironolactone (spironolactone 50 mg Tab) 1 Tablets By Mouth every day. Last Dose: Next Dose: Medications to Continue with No Changes Other Medications apixaban (Eliquis 5 mg oral tablet) 1 Tablets By Mouth 2 times a day. Last Dose: Next Dose: aripiprazole (Abilify 5 mg Tab) 1 Tablets By Mouth every day. Last Dose: Next Dose: aspirin (aspirin 81 mg Chew Tab) 1 Tablets Chewed every day. Last Dose: Next Dose: atorvastatin (atorvastatin 80 mg Tab) 1 Tablets By Mouth every day. Last Dose: Next Dose: bumetanide (bumetanide 1 mg Tab) 3 Tablets By Mouth 2 times a day. Last Dose: Next Dose: cholecalciferol 25 Microgram By Mouth every day. Last Dose: Next Dose: dapagliflozin (Farxiga 10 mg oral tablet) 1 Tablets By Mouth every day. Last Dose: Next Dose: daridorexant (Quviviq 25 mg oral tablet) 1 Tablets By Mouth at bedtime as needed Insomnia. Last Dose: Next Dose: diazepam (Valium 5 mg Tab) 1 Tablets By Mouth once a day (at bedtime) as needed Other (see comment)., if needed for anxiety, sleep, muscle spasm, for mri Last Dose: Next Dose: diclofenac topical (diclofenac topical 1% gel) 1 Application Topical 4 times a day as needed for pain. Last Dose: Next Dose: entecavir (entecavir 0.5 mg oral tablet) 1 Tablets By Mouth every day. 2 hours befor (more content not included)...NormalMccullough-Hyde Memorial HospitalBMPon 45-88-1504Bmsgx gap [Moles/Vol]11 mmol/LNormal6-16[facility] Comment on above:Performed By: #### [id number] #### [facility] [address], [place] [address]GCJ/Creat Ratio32 No JkokbXweh17-63QsqxqoMccullough-Hyde Memorial Hospital Comment on above:Performed By: #### [id number] #### [facility] [address], [place] [address]Fbwrahs [Mass/Vol]8.9 mg/dLNormal8.9-11.1[facility] HospitalComment on above:Performed By: #### [id number] #### [facility] [address], [place] [address]Bvlcmvcr [Moles/Vol]103 mmol/VMxlvlz479-222SelwocMccullough-Hyde Memorial HospitalComment on above:Performed By: #### [id number] #### [facility] [address], [place] [address]QX6 [Moles/Vol]29 mmol/DLyqtoq70-81WhmsdzMccullough-Hyde Memorial Hospital Comment on above:Performed By: #### [id number] #### [facility] [address], [place] [address]Elrfackugk [Mass/Vol]0.8 mg/dLNormal0.5-1.3FAdams County Regional Medical CenterComment on above:Performed By: #### [id number] #### [facility] [address], [place] [address]Rimqrng [Mass/Vol]100 mg/tUKdltru58-839UeyrhfMccullough-Hyde Memorial HospitalComment on above:Performed By: #### [id number] #### [facility] [address], [place] [address]Osbhmcesq [Moles/Vol]3.8 mmol/LNormal3.5-5.3FAdams County Regional Medical CenterComment on above:Performed By: #### [id number] #### [facility] [address], [place] [address]Nlqnan [Moles/Vol]139 mmol/TKoguvj707-004JwywqnMccullough-Hyde Memorial HospitalComment on above:Performed By: #### [id number] #### [facility] [address], [place] [address]Eilt nitrogen [Mass/Vol]26 mg/dLHigh5-21[facility] HospitalComment on above:Performed By: #### [id number] #### [facility] [address], [place] [address]VBW w/ Auto Diffon 30-22-9668Zjsdufgjvvbh Ql (Bld)PRESENT Invalid Interpretation CodeMccullough-Hyde Memorial HospitalComment on above:Performed By: #### [id number] #### [facility] [address], [place] [address]Xrpykjpj Absolute0.1 E9/LNormal0.0-0.2FAdams County Regional Medical CenterComment on above:Performed By: #### [id number] #### [facility] [address], [place] [address]Iswgqeenh/100 WBC (Bld)0.7 %Normal0.0-2.0[facility] Memorial HospitalComment on above:Performed By: #### [id number] #### [facility] [address], [place] [address]Cnt Absolute0.2 E9/LNormal0.0-0.5FAdams County Regional Medical Center Comment on above:Performed By: #### [id number] #### [facility] [address], [place] [address]Bsespaeszzm/100 WBC (Bld)2.3 %Normal0.0-8.0[facility] Memorial HospitalComment on above:Performed By: #### [id number] #### [facility] [address] [place] [address]Dkecilbbkal distribution width (RBC) [Ratio]21.0 %High10.9-14.2 [facility] Memorial HospitalComment on above:Performed By: #### [id number] #### [facility] [address], [place] [address]Nxnlprybhb (Bld) [Volume fraction]30.9 %Low37.7-49.0[facility] Memorial HospitalComment on above:Performed By: #### [id number] #### [facility] [address], [place] [address]Fbuzhvxycg (Bld) [Mass/Vol]9.9 g/dLLow13.5-17.5FAdams County Regional Medical CenterComment on above:Performed By: #### [id number] #### [facility] [address], [place] [address]RezpmkjceazulYTJSISNTvshdwi Interpretation CodeMccullough-Hyde Memorial HospitalComment on above:Performed By: #### [id number] #### [facility] [address] [place] [address]Ntwej Absolute1.7 E9/LNormal1.0-4.0[facility] Comment on above:Performed By: #### [id number] #### [facility] [address], [place] [address]Vbjqetorfnz/100 WBC (Bld)21.6 %Awuzwp44.0-50.0[facility] Memorial HospitalComment on above:Performed By: #### [id number] #### [facility] [address], [place] [address]DGQ (RBC) [Entitic mass]24.5 pgLow27.0-34.0[facility] Memorial HospitalComment on above:Performed By: #### [id number] #### [facility] [address], [place] [address]YBYD (RBC) [Mass/Vol]31.9 g/uYWjedsn73.4-36.0[facility] HospitalComment on above:Performed By: #### [id number] #### [facility] [address], [place] [address]WLE (RBC) [Entitic vol]76.9 fLLow80.0-100.0[facility] Memorial HospitalComment on above:Performed By: #### [id number] #### [facility] [address] [place] [address]Xgnm Absolute0.7 E9/LNormal0.2-1.0[facility] Comment on above:Performed By: #### [id number] #### [facility] [address], [place] [address]Uwwgfmwsw/100 WBC (Bld)8.8 %Normal4.0-14.0[facility] Memorial HospitalComment on above:Performed By: #### [id number] #### [facility] [address], [place] [address]Aljmdr Absolute5.1 E9/LNormal2.0-7.5FAdams County Regional Medical Center Comment on above:Performed By: #### [id number] #### [facility] [address], [place] [address]Lengic Auto66.6 %Isfgtv22.0-75.0[facility] Comment on above:Performed By: #### [id number] #### [facility] [address] [place] [address]Czqttufi036.0 E9/SQaaash422.0-500.0[facility] Comment on above:Performed By: #### [id number] #### [facility] [address] [place] [address]Djwydlvp mean volume (Bld) [Entitic vol]7.3 fLNormal6.4-10.8 [facility] Memorial HospitalComment on above:Performed By: #### [id number] #### [facility] [address] [place] [address]XCJ1.0 E12/LLow4.3-5.9[facility] Memorial HospitalComment on above:Performed By: #### [id number] #### [facility] [address] [place] [address]EYN morphology finding Nom (Bld)SEE MORPHOLOGYInvalid Interpretation CodeMccullough-Hyde Memorial HospitalComment on above:Performed By: #### [id number] #### [facility] [address] [place] [address]AMJ4.7 E9/LNormal4.0-11.0[facility] Memorial HospitalComment on above:Performed By: #### [id number] #### [facility] [address] [place] [address]Eojpjhkna Glucose POCon 12-84-6330Gkelnbk [Mass/Vol]182 mg/dL Ochj90-29OknfmyMccullough-Hyde Memorial HospitalComment on above:Result Comment: Notified RN/MDPerformed By: #### [id number] #### [facility] [address] [place] [address]Vrhedms [Mass/Vol]132 mg/vMOhyx32-48VtcqviMccullough-Hyde Memorial Hospital Comment on above:Result Comment: Notified RN/MDPerformed By: #### [id number] #### [facility] [address] [place] [address], [place] [address]Jsexajo [Mass/Vol]273 mg/xRYtvp17-15BthwdmMccullough-Hyde Memorial Hospital Comment on above:Result Comment: Notified RN/MDPerformed By: #### [id number] #### [facility] [address], [place] [address]Qfbugwk [Mass/Vol]130 mg/oAXdat25-25WvlrceMccullough-Hyde Memorial Hospital Comment on above:Result Comment: Notified RN/MDPerformed By: #### [id number] #### [facility] [address], [place] [address]Cryznjepdqggxkvzt Note - Case Manageron 01-13-2025 Interdisciplinary Note - Case ManagerInterdisciplinary Note - Glaze Mixer Patient is awake and alert in bed, previously rounded with Dr. Edwards, pending ID to see. Patient is aware of possible plan to DC home today, will likely be on oral antibiotics at NH. Life Partner atbedside and will transport at NH. Patient continues to deny HH or PM at NH, states his life partneris a Nurse practitioner and takes care of him. Medicare rights reviewed and second copy provided. .PCP verified and insurance information reviewed and DME discussed. Contact information provided andwhite board updated. pending Dr. Cheek to see, then possible plan to DC home.NormalMccullough-Hyde Memorial HospitalComment on above:Result Comment: Electronically Signed By: Parish HERBERT, Nathan\.domenic\Date and Time Signed: 01/13/25 11:14 EDTeGFRon 81-42-3650gEBS20 mL/min/1.73 r3Lomayn>=59[facility] HospitalComment on above:Performed By: #### [id number] #### [facility] [address], [place] [address]XMDar 22-99-0825Rungr gap [Moles/Vol]12 mmol/LNormal6-16[facility] HospitalComment on above:Performed By: #### [id number] #### [facility] [address], [place] [address]JDJ/Creat Ratio22 No ByqgkFkgn57-09FluvsgMccullough-Hyde Memorial Hospital Comment on above:Performed By: #### [id number] #### [facility] [address], [place] [address]Uikdqvy [Mass/Vol]9.4 mg/dLNormal8.9-11.1FAdams County Regional Medical CenterComment on above:Performed By: #### [id number] #### [facility] [address], [place] [address]Wkmulwhu [Moles/Vol]100 mmol/HBpx143-962WnaihpMccullough-Hyde Memorial HospitalComment on above:Performed By: #### [id number] #### [facility] [address], [place] [address]BN7 [Moles/Vol]30 mmol/MFlwvlw95-58MhjwaoMccullough-Hyde Memorial Hospital Comment on above:Performed By: #### [id number] #### [facility] [address], [place] [address]Hfafiwceeg [Mass/Vol]1.0 mg/dLNormal0.5-1.3FAdams County Regional Medical CenterComment on above:Performed By: #### [id number] #### [facility] [address], [place] [address]Bqemane [Mass/Vol]124 mg/aHJuuwrq24-959QggvmwMccullough-Hyde Memorial HospitalComment on above:Performed By: #### [id number] #### [facility] [address], [place] [address]Qkutvrqax [Moles/Vol]3.9 mmol/LNormal3.5-5.3FAdams County Regional Medical CenterComment on above:Performed By: #### [id number] #### [facility] [address], [place] [address]Vzlbkw [Moles/Vol]138 mmol/MFsovdb328-805HdtqnrMccullough-Hyde Memorial HospitalComment on above:Performed By: #### [id number] #### [facility] [address], [place] [address]Bmok nitrogen [Mass/Vol]22 mg/dLHigh5-21[facility] HospitalComment on above:Performed By: #### [id number] #### [facility] [address], [place] [address]YWIxi 58-80-5912ZGW9.7 mg/dLNormal<=1.9[facility] HospitalComment on above:Performed By: #### [id number] #### [facility] [address], [place] [address]Iravhodvj Glucose POCon 12-27-4431Glyeoqx [Mass/Vol]136 mg/dL Nabs71-02JchhntMccullough-Hyde Memorial HospitalComment on above:Result Comment: Notified RN/MDPerformed By: #### [id number] #### [facility] [address], [place] [address]Fqiqonu [Mass/Vol]167 mg/uFYkkk78-74Onguht[address] Comment on above:Result Comment: Notified RN/MDPerformed By: #### [id number] #### [facility] [address], [place] [address]Drmkweu [Mass/Vol]158 mg/aOQgnz17-50Fvyqie[address] Comment on above:Result Comment: Notified RN/MDPerformed By: #### [id number] #### [facility] [address], [place] [address]Lyocsmd [Mass/Vol]143 mg/sCFaqw24-88Kzpllv[address] Comment on above:Result Comment: Notified RN/MDPerformed By: #### [id number] #### [facility] [address], [place] [address]Zphnfcsvmytcsnxht Note - Case Manageron 01-12-2025 Interdisciplinary Note - Case ManagerInterdisciplinary Note - Glaze Mixer Patient is awake and alert in bed, , previously rounded with Dr. Edwards. Patient is aware of plan to stay in hospital today, will continue on IV antibiotics and await ID to see tomorrow. Also pendingDrTio Ruizey to see patient today. Patient continues to deny any concerns or DC needs. May need IV atb at DC, CRM following. PCP verified and insurance information reviewed and DME discussed . Contact information provided and white board updated.NormalMccullough-Hyde Memorial HospitalComment on above:Result Comment: Electronically Signed By: Parish HERBERT, Nathan\.domenic\Date and Time Signed: 01/12/25 10:55 EDTeGFRon 99-61-5890lIGZ11 mL/min/1.73 d3Ldwotr>=59[facility] HospitalComment on above:Performed By: #### [id number] #### [facility] [address], [place] [address]Utckbhbnd Glucose POCon 00-31-4605Urzmwjy [Mass/Vol]175 mg/dL Kjqt12-13Xaoadp91 [address] StreetComment on above:Result Comment: Notified RN/MDPerformed By: #### [id number] #### [facility] [address], [place] [address]Elinioh [Mass/Vol]145 mg/gNUlpb14-87Xymuav[address] Comment on above:Result Comment: Notified RN/MDPerformed By: #### [id number] #### [facility] [address], [place] [address]Ealvfik [Mass/Vol]232 mg/hYLqnp92-52Bwtccc[address] Comment on above:Result Comment: Notified RN/MDPerformed By: #### [id number] #### [facility] [address], [place] [address]Inmijzq [Mass/Vol]118 mg/uHQmcm86-27Itmyrd[address] Comment on above:Result Comment: Notified RN/MDPerformed By: #### [id number] #### [facility] [address] [facility], [place] [address]Ebtcfynuvppzqcfmr Note - Case Manageron 01-11-2025 Interdisciplinary Note - Case ManagerInterdisciplinary Note - Glaze Mixer Patient is awake and alert in chair, Life Partner present at this time. Patient states feeling muchbetter today and wants to DC home. Patient is currently on po antibiotics, awaiting rounds with [facility]. PcP verified and insurance information reviewed and DME discussed. Patient declines any HH orParamedicine at NH. Medicare rights reviewed and second copy provided. CRM following. Patient will remain in hospital, awaiting Wound and Dr. Cheek to see tomorrow, CRM following.[facility] HospitalComment on above:Result Comment: Electronically Signed By: Parish HERBERT, Nathan\.domenic\Date and Time Signed: 01/11/25 10:58 EDTLyteson 58-12-5894Savdf gap [Moles/Vol]9 mmol/LNormal 6-16[facility] HospitalComment on above:Performed By: #### [id number] #### [facility] [address], [place] [address]Kydlbwoq [Moles/Vol]101 mmol/YOiiooz246-782SbnbiqMccullough-Hyde Memorial HospitalComment on above:Performed By: #### [id number] #### [facility] [address], [place] [address]XS9 [Moles/Vol]33 mmol/JUrwk34-32CfohrxMccullough-Hyde Memorial Hospital Comment on above:Performed By: #### [id number] #### [facility] [address], [place] [address]Obczficop [Moles/Vol]4.0 mmol/LNormal3.5-5.3FAdams County Regional Medical CenterComment on above:Performed By: #### [id number] #### [facility] [address], [place] [address]Jupbcw [Moles/Vol]139 mmol/FCkbpcs562-740MkfkkwMccullough-Hyde Memorial HospitalComment on above:Performed By: #### [id number] #### [facility] [address], [place] [address]XMKgf 15-31-6886Mtvxo gap [Moles/Vol]12 mmol/LNormal6-16[facility] HospitalComment on above:Performed By: #### [id number] #### [facility] [address], [place] [address]QJK/Creat Ratio21 No RgsqgSbxh39-01KctpwnMccullough-Hyde Memorial Hospital Comment on above:Performed By: #### [id number] #### [facility] [address], [place] [address]Rdsovlm [Mass/Vol]9.3 mg/dLNormal8.9-11.1FAdams County Regional Medical CenterComment on above:Performed By: #### [id number] #### [facility] [address], [place] [address]Qjfiqywt [Moles/Vol]101 mmol/ILuzibn634-588VpwfrmMccullough-Hyde Memorial HospitalComment on above:Performed By: #### [id number] #### [facility] [address], [place] [address]JP2 [Moles/Vol]33 mmol/XLrci18-67WzkjbqMccullough-Hyde Memorial Hospital Comment on above:Performed By: #### [id number] #### [facility] [address], [place] [address]Cqvittgedn [Mass/Vol]1.0 mg/dLNormal0.5-1.3FAdams County Regional Medical CenterComment on above:Performed By: #### [id number] #### [facility] [address], [place] [address]Xmvwgvw [Mass/Vol]155 mg/nYZueagb60-461HxbntzMccullough-Hyde Memorial HospitalComment on above:Performed By: #### [id number] #### [facility] [address], [place] [address]Oexhzddfr [Moles/Vol]3.7 mmol/LNormal3.5-5.3FAdams County Regional Medical CenterComment on above:Performed By: #### [id number] #### [facility] [address], [place] [address]Bqgvxc [Moles/Vol]142 mmol/ZZjwxex907-638DmqzexMccullough-Hyde Memorial HospitalComment on above:Performed By: #### [id number] #### [facility] [address], [place] [address]Dcth nitrogen [Mass/Vol]21 mg/dLNormal5-21[facility] Memorial HospitalComment on above:Performed By: #### [id number] #### [facility] [address], [place] [address]Snbllsanz Glucose POCon 60-59-7934Hyvpfdo [Mass/Vol]136 mg/dL Fjjn33-35Ltchbd[address] [place], [place] [address]Comment on above:Result Comment: Notified RN/MDPerformed By: #### [id number] #### [facility] [address], [place] [address]Imxvqmp [Mass/Vol]162 mg/pSAwxz20-16Gkyrxu[address] Comment on above:Result Comment: Notified RN/MDPerformed By: #### [id number] #### [facility] [address], [place] [address]Symuhds [Mass/Vol]112 mg/kQMhoq76-03Lxapte[address] Comment on above:Result Comment: Notified RN/MDPerformed By: #### [id number] #### [facility] [address], [place] [address]Mxpvilj [Mass/Vol]134 mg/fEUvxv28-84Untpiz[address] Comment on above:Result Comment: Notified RN/MDPerformed By: #### [id number] #### [facility] [address], [place] [address]Mlt & Hgbon 91-02-7636Wswmzjspdl (Bld) [Volume fraction]32.2 % Low37.7-49.0[facility] Memorial HospitalComment on above:Performed By: #### [id number] #### [facility] [address], [place] [address]Nheohlixsl (Bld) [Mass/Vol]10.7 g/dLLow13.5-17.5FAdams County Regional Medical CenterComment on above:Performed By: #### [id number] #### [facility] [address] [place] [address]Znhwsmsaesqrltkju Note - Case Manageron 01-10-2025 Interdisciplinary Note - Case ManagerInterdisciplinary Note - Glaze Mixer Patient is awake, alert and oriented. Patient is up in chair. Patient is from home with his life partner, in room. Patient will have a ride at NH. PLOF requires assistance from life partner with ADL's, utilizes cane, rollator and wc as needed. Patient has verified his PCP and insurance. Patient is an inpatient. Patient IMM was completed. This gets reviewed. Patient is assigned to [facility], see notes. Patient has consults of Wound, ID and gen SX. Waiting MRI. Patient has cellulitis. His Right legis wrapped Patient has cx resulted. Patient declines any needs for DME, Paramed or HH. Appears patient will need oral ABX at NH. Patient is now a DNRCC. CM provided contact info, white board updated. [facility] HospitalComment on above:Result Comment: Electronically Signed By: Aime ISABEL, Radha\.br\Date and Time Signed: 01/10/2509:45 EDT MRI Foot w/ + w/o Contrast Righton 63-67-4796TQW Foot w/ + w/o Contrast Right Exam Date/Time: 01/10/2025 11:42 EDT Reason for Exam: Pain Report IMPRESSION: SOFT TISSUE EDEMA WITHOUT LOCULATED FLUID COLLECTION TO SUGGEST ABSCESS. NO EVIDENCE OF OSTEOMYELITIS. EXAM: MRI Foot w/ + w/o Contrast Right HISTORY: Cellulitis. Fever. Diabetes. History of multiple prior amputations. COMPARISON : CT 01/06/2025 TECHNIQUE: Multiplanar multisequence MRI of the foot was performed without and with contrast. FINDINGS: Subcutaneous soft tissue edema of the distal aspect of the stump greatest along the plantar aspect without fluid collection to suggest abscess. There is a wound of the plantar surface of the foot at the level of the medial cuneiform measuring approximately 1.2 cm. Subcutaneous soft tissue edema of the lower extremity at the level of the distal tibial diaphysis greatest anteriorly without loculated fluid collection. No bone marrow signal abnormality to suggest osteomyelitis. Achilles tendon, plantar fascia, and flexor and extensor tendons appear intact. Technical Comments: Contrast: Vueway Contrast amount in ml's: 10.00 Ordering Provider: Atiya QIU FINAL REPORT Dictated: 01/10/2025 1:10 pm Teddy Astorga DO Signed (Electronic Signature): 01/10/2025 1:10 pm Signed by: Teddy Astorga DO Transcribed by: AMBROCIO Technologist: LeslieMccullough-Hyde Memorial HospitaleGFRon 90-37-1888eKDQ08 mL/min/1.73 t2Zhmvdh>=59[facility] HospitalComment on above:Performed By: #### [id number] #### [facility] [address] [place], [place] [address]Zkncytxup Glucose POCon 97-33-2143Lqpfcqn [Mass/Vol]137 mg/dL [address] StreetComment on above:Result Comment: Notified RN/MDPerformed By: #### [id number] #### [facility] [address] [place], [place] [address]Lofsyzi [Mass/Vol]229 mg/fUEjts94-17Immyjs[address] Comment on above:Result Comment: Notified RN/MDPerformed By: #### [id number] #### [facility] [address] [place], [place] [address]Ktcynev [Mass/Vol]164 mg/lPGcpv28-58Qzmofe[address] Comment on above:Result Comment: Notified RN/MDPerformed By: #### [id number] #### [facility] [address] [place], [place] [address]Slqgtar [Mass/Vol]134 mg/hYNjjs99-20Cwnfoj[address] Comment on above:Result Comment: Notified RN/MDPerformed By: #### [id number] #### [facility] [address] [place], [place] [address]Dohhsytggbhfdhpel Note - Case Manageron 01-09-2025 Interdisciplinary Note - Case ManagerInterdisciplinary Note - Glaze Mixer CRM to room 334 Patient is awake, alert and oriented. Patient is up in chair. Patient is from home with his life partner. Patient will have a ride at NH. PLOF requires assistance from life partner with ADL's, utilizes cane, rollator and wc as needed. Patient has verified his PCP and insurance. Patient is an inpatient. Patient IMM was completed. This gets reviewed. Patient is assigned to Atiya GOYAL, see notes. Patient has consults of Wound, ID and gen SX. Patient has cellulitis. His Right leg is wrapped Patient has cx resulted. . Patient declines any needs for DME, Paramed or HH. Appears patient will need oral ABX at DC. Patient is now a DNRCC. CRM provided contact info, white board updated. Goran Rajput not a DC todayNoMercy Health Clermont HospitalComment on above:Result Comment: Electronically Signed By: Valentina Peoples\.br\Date and Time Signed: 01/09/25 12:08 EDTBMPon 67-19-7700Snwkm gap [Moles/Vol]10 mmol/LNormal6-16[facility] HospitalComment on above:Performed By: #### [id number] #### [facility] [address] [place], [place] [address]LLG/Creat Ratio21 No EzfwyBgcb96-79AontzxMccullough-Hyde Memorial Hospital Comment on above:Performed By: #### [id number] #### [facility] [address] [place], [place] [address]Gnmvjci [Mass/Vol]8.9 mg/dLNormal8.9-11.1FAdams County Regional Medical CenterComment on above:Performed By: #### [id number] #### [facility] [address], [place] [address]Bmjviyah [Moles/Vol]100 mmol/EMyv754-113TbsczrMccullough-Hyde Memorial HospitalComment on above:Performed By: #### [id number] #### [facility] [address], [place] [address]LP8 [Moles/Vol]33 mmol/ZXpse15-73NarsgrMccullough-Hyde Memorial Hospital Comment on above:Performed By: #### [id number] #### [facility] [address], [place] [address]Zbgutiuzit [Mass/Vol]0.7 mg/dLNormal0.5-1.3FAdams County Regional Medical CenterComment on above:Performed By: #### [id number] #### [facility] [address], [place] [address]Afrqgan [Mass/Vol]102 mg/iTWzzeng60-432VklyetMccullough-Hyde Memorial HospitalComment on above:Performed By: #### [id number] #### [facility] [address], [place] [address]Yjbozqsvi [Moles/Vol]4.0 mmol/LNormal3.5-5.3FAdams County Regional Medical CenterComment on above:Performed By: #### [id number] #### [facility] [address], [place] [address]Ucotpg [Moles/Vol]139 mmol/UFnhoun107-263UnzqpaMccullough-Hyde Memorial HospitalComment on above:Performed By: #### [id number] #### [facility] [address], [place] [address]Txxr nitrogen [Mass/Vol]15 mg/dLNormal5-21[facility] HospitalComment on above:Performed By: #### [id number] #### [facility] [address] [place] [address]WSX w/ Auto Diffon 65-91-3416Edpbckatdyyt Ql (Bld)PRESENT Invalid Interpretation CodeMccullough-Hyde Memorial HospitalComment on above:Performed By: #### [id number] #### [facility] [address] [place] [address]Vymcwxnh Absolute0.1 E9/LNormal0.0-0.2FAdams County Regional Medical CenterComment on above:Performed By: #### [id number] #### [facility] [address], [place] [address]Jtqcbxoab/100 WBC (Bld)1.2 %Normal0.0-2.0[facility] HospitalComment on above:Performed By: #### [id number] #### [facility] [address], [place] [address]Aon Absolute0.2 E9/LNormal0.0-0.5FAdams County Regional Medical Center Comment on above:Performed By: #### [id number] #### [facility] [address], [place] [address]Nplnrstkwwy/100 WBC (Bld)2.9 %Normal0.0-8.0[facility] HospitalComment on above:Performed By: #### [id number] #### [facility] [address] [place] [address]Nlqngnqvttd distribution width (RBC) [Ratio]20.3 %High10.9-14.2 [facility] HospitalComment on above:Performed By: #### [id number] #### [facility] [address] [place] [address]Hkrexzqefh (Bld) [Volume fraction]30.5 %Low37.7-49.0[facility] HospitalComment on above:Performed By: #### [id number] #### [facility] [address] [place] [address]Cvfhzwvkpg (Bld) [Mass/Vol]9.9 g/dLLow13.5-17.5FAdams County Regional Medical CenterComment on above:Performed By: #### [id number] #### [facility] [address] [place] [address] 19469OhijmzavrsuevSPUJTNRMeroruh Interpretation UK HealthcareComment on above:Performed By: #### [id number] #### [facility] [address] [place] [address] 313[address]Povoj PltPRESENTInvalid Interpretation UK HealthcareComment on above:Performed By: #### [id number] #### [facility] [address] [place] [address] 485[address]Xlrhg Absolute1.9 E9/LNormal1.0-4.0[facility] Comment on above:Performed By: #### [id number] #### [facility] [address] [place] [address]Srmeobvenmf/100 WBC (Bld)22.6 %Erbatq87.0-50.0[facility] HospitalComment on above:Performed By: #### [id number] #### [facility] [address] [place] [address] 43633RKM (RBC) [Entitic mass]24.7 pgLow27.0-34.0[facility] HospitalComment on above:Performed By: #### [id number] #### [facility] [address] [place] [address]CJAZ (RBC) [Mass/Vol]32.6 g/lTKpitma42.4-36.0[facility] HospitalComment on above:Performed By: #### [id number] #### [facility] [address] [place] [address]29[address]BQV (RBC) [Entitic vol]75.9 fLLow80.0-100.0[facility] HospitalComment on above:Performed By: #### [id number] #### [facility] [address] [place] [address] 88227Tily Absolute0.5 E9/LNormal0.2-1.0[facility] Comment on above:Performed By: #### [id number] #### [facility] [address] [place] [address] 295[address]Hnmfmwsep/100 WBC (Bld)6.0 %Normal4.0-14.0[facility] HospitalComment on above:Performed By: #### [id number] #### [facility] [address] [place] [address]Wfklyr Absolute5.8 E9/LNormal2.0-7.5FAdams County Regional Medical Center Comment on above:Performed By: #### [id number] #### [facility] [address], [place] [address]Jistqn Auto67.3 %Kljfid22.0-75.0[facility] Comment on above:Performed By: #### [id number] #### [facility] [address] [place] [address] 26[address]Iedjpuhl902.0 E9/TFtuwiz797.0-500.0[facility] Comment on above:Performed By: #### [id number] #### [facility] [address] [place] [address] 178[address]Gxcpgzdo mean volume (Bld) [Entitic vol]7.8 fLNormal6.4-10.8 [facility] HospitalComment on above:Performed By: #### [id number] #### [facility] [address] [place] [address] 44[address]HnwbwpvnayygmULHIHHMVmvzvwn Interpretation UK HealthcareComment on above:Performed By: #### [id number] #### [facility] [address] [place] [address] 66266RTE1.0 E12/LLow4.3-5.9[facility] HospitalComment on above:Performed By: #### [id number] #### [facility] [address] [place] [address] 39919VII morphology finding Nom (Bld)SEE MORPHOLOGYInvalid Interpretation UK HealthcareComment on above:Performed By: #### [id number] #### [facility] [address] [place] [address] 19[address]WJJ9.5 E9/LNormal4.0-11.0[facility] HospitalComment on above:Performed By: #### [id number] #### [facility] [address] [place] [address]89[address]ZHcyf PCRon 90-68-9151Kwfqp Specimen AcceptableUnacceptable NormalMccullough-Hyde Memorial HospitalComment on above:Performed By: #### [id number] #### [facility] [address] [place] [address] 260[address]Ysubk CancelledYESNormalMccullough-Hyde Memorial HospitalComment on above:Performed By: #### [id number] #### [facility] [address] [place] [address] 96[address]Uczacxeja Glucose POCon 69-46-2488Dpsrmbp [Mass/Vol]190 mg/dL Diuq76-57HcbdinMccullough-Hyde Memorial HospitalComment on above:Result Comment: Notified RN/MDPerformed By: #### [id number] #### [facility] [address] [place] [address] 13328Tcprney [Mass/Vol]140 mg/pIPfes47-20KotywsMccullough-Hyde Memorial Hospital Comment on above:Result Comment: Notified RN/MDPerformed By: #### [id number] #### [facility] [address] [place] [address]Kzvaiar [Mass/Vol]140 mg/yOIlto74-51N[address] [place] [address] Comment on above:Result Comment: Notified RN/MDPerformed By: #### [id number] #### [facility] [address], [place] [address]Dxirujt [Mass/Vol]199 mg/aMBqct85-55TllijmMccullough-Hyde Memorial Hospital Comment on above:Result Comment: Notified RN/MDPerformed By: #### [id number] #### [facility] [address] [place] [address] 348[address]Ckhpuij Panel by PCRon 15-61-9135Gyljtuvnvcinw groupNot [facility] HospitalComment on above:Result Comment: Testing was performed utilizing reverse mail clerk bills (RT), polymerase chain reaction (PCR), and array hybridization to detect specific gastrointestinal microbial nucleic acid gene sequences associated with the following pathogenic bacteria and viruses:Campylobacter Group (composed of C. coli, C. jejuni, and C. trudi), Salmonella species, Shigella species (including S. dysenteriae,S. boydii, S. sonnei and S. flexneri), Vibrio Group (composed of V. cholera and V. parahaemolyticus), Yersinia enterocolitica, Norovirus GI/GII, and Rotavirus A. In addition, EPdetects Shiga toxin 1 gene and Shiga toxin 2 gene virulence markers. Shiga toxin producing E. coli (STEC) typically harborone or both genes that encode for Shiga toxins 1 and 2. Campylobacter group, Salmonella species, Shigella species, Vibrio group, Rotavirus A, Shiga Toxin 1, Shiga Toxin 2, Norovirus GI/GII, and Yersinia enterocolitica were tested by Verigene nulcleic acidtest.Performed By: #### [id number] #### [facility] [address] [place] [address]Tgxaros Panel Intrl QCPassAkron Children's Hospital Comment on above:Result Comment: Testing was performed utilizing reverse mail clerk bills (RT), polymerase chain reaction (PCR), and array hybridization to detect specific gastrointestinal microbial nucleic acid gene sequences associated with the following pathogenic bacteria and viruses:Campylobacter Group (composed of C. coli, C. jejuni, and C. trudi), Salmonella species, Shigella species (including S. dysenteriae,S. boydii, S. sonnei and S. flexneri), Vibrio Group (composed of V. cholera and V. parahaemolyticus), Yersinia enterocolitica, Norovirus GI/GII, and Rotavirus A. In addition, EPdetects Shiga toxin 1 gene and Shiga toxin 2 gene virulence markers. Shiga toxin producing E. coli (STEC) typically harborone or both genes that encode for Shiga toxins 1 and 2.Performed By: #### [id number] #### [facility] [address], [place] [address]Dgbjmwiqm GI/GIINot [facility] Comment on above:Performed By: #### [id number] #### [facility] [address], [place] [address]Sdtrjtcfq ANot [facility] HospitalComment on above:Performed By: #### [id number] #### [facility] [address], [place] [address]Uzwdzmaksf speciesNot [facility] Comment on above:Result Comment: This test result should be correlated with clinical presentations and medical history by a healthcare provider to determine its clinical significance.Performed By: #### [id number] #### [facility] [address], [place] [address]Kkrml Tox InterpNegativeAkron Children's Hospital Comment on above:Performed By: #### [id number] #### [facility] [address], [place] [address]Sykux Toxin 1Not [facility] Comment on above:Performed By: #### [id number] #### [facility] [address], [place] [address]Qqiwp Toxin 2Not detectedAkron Children's Hospital Comment on above:Performed By: #### [id number] #### [facility] [address], [place] [address]Uffdvhdi speciesNot detectedAkron Children's Hospital Comment on above:Performed By: #### [id number] #### [facility] [address], [place] [address]Ihdueo GroupNot detectedAkron Children's Hospital Comment on above:Performed By: #### [id number] #### [facility] [address], [place] [address]Toqygmfz enterocoliticaNot [facility] HospitalComment on above:Performed By: #### [id number] #### [facility] [address] [place] [address]SG Abdomen 1 Viewon 75-66-8488IN Abdomen 1 ViewExam Date/Time: 01/08/2025 09:08 EDT Reason for Exam: Abdominal pain Report IMPRESSION: NONSPECIFIC ABDOMEN. CLINICAL HISTORY: Abdominal pain COMPARISON: NONE. FINDINGS: Gas and stool in colon. Gas in small bowel. No diffuse small bowel dilatation, masses, abnormal calcification. Tip of inferior vena cava level of base L2. Osseous structures intact. Technical Comments: Ka,r in mGy = na DAP = na Ordering Provider: Atiya QIU FINAL REPORT Dictated: 01/08/2025 10:52 am Reji Russell MD Signed (Electronic Signature): 01/08/2025 10:52 am Signed by: Reji Russell MD Transcribed by: AMBROCIO Technologist: [facility] HospitaleGFRon 73-72-7572eOIX116 mL/min/1.73 z3Vmlcwv>=59[facility] HospitalComment on above:Performed By: #### [id number] #### [facility] [address], [place] [address]KSUwz 34-67-1973Qykmc gap [Moles/Vol]9 mmol/LNormal6-16[facility] HospitalComment on above:Order Comment: line packet dropped off nurse aware [id number] 01/07/2025 05:16:12 EDTPerformed By: #### [id number] #### [facility] [address], [place] [address]PNO/Creat Ratio16 No TmxytAkocdw57-32TccgzoMccullough-Hyde Memorial HospitalComment on above:Order Comment: line packet dropped off nurse aware [id number] 01/07/2025 05:16:12 EDTPerformed By: #### [id number] #### [facility] [address], [place] [address]Ovsukhb [Mass/Vol]8.9 mg/dLNormal8.9-11.1FAdams County Regional Medical CenterComment on above:Order Comment: line packet dropped off nurse aware [id number] 01/07/2025 05:16:12 EDTPerformed By: #### [id number] #### [facility] [address], [place] [address]Ugqpdifh [Moles/Vol]104 mmol/FBlxrix790-942XqkuqdMccullough-Hyde Memorial HospitalComment on above:Order Comment: line packet dropped off nurse aware [id number] 01/07/2025 05:16:12 EDTPerformed By: #### [id number] #### [facility] [address], [place] [address]XL6 [Moles/Vol]32 mmol/YZtna77-19XappftMccullough-[facility]de Memorial Hospital Comment on above:Order Comment: line packet dropped off nurse aware [id number] 01/07/2025 05:16:12 EDTPerformed By: #### [id number] #### [facility] [address], [place] [address]Okpujtbxwa [Mass/Vol]0.8 mg/dLNormal0.5-1.3FAdams County Regional Medical CenterComment on above:Order Comment: line packet dropped off nurse aware [id number] 01/07/2025 05:16:12 EDTPerformed By: #### [id number] #### [facility] [address], [place] [address]Lsjthbc [Mass/Vol]108 mg/bVFcqzlf32-820RtoiccMccullough-Hyde Memorial HospitalComment on above:Order Comment: line packet dropped off nurse aware [id number] 01/07/2025 05:16:12 EDTPerformed By: #### [id number] #### [facility] [address], [place] [address]Mmxgqrvhc [Moles/Vol]3.7 mmol/LNormal3.5-5.3FAdams County Regional Medical CenterComment on above:Order Comment: line packet dropped off nurse aware [facility] 01/07/2025 05:16:12 EDTPerformed By: #### [id number] #### [facility] [address], [place] [address]Mxgnpk [Moles/Vol]141 mmol/CTidgmc817-849CsrgikMccullough-Hyde Memorial HospitalComment on above:Order Comment: line packet dropped off nurse aware [facility] 01/07/2025 05:16:12 EDTPerformed By: #### [id number] #### [facility] [address], [place] [address]Nkop nitrogen [Mass/Vol]13 mg/dLNormal5-21[facility] HospitalComment on above:Order Comment: line packet dropped off nurse aware [facility] 01/07/2025 05:16:12 EDTPerformed By: #### [id number] #### [facility] [address], [place] [address]Fsjbqczpb Glucose POCon 06-53-7922Ydzkxsb [Mass/Vol]154 mg/dL Vuro38-44LskqzvMccullough-Hyde Memorial HospitalComment on above:Result Comment: Notified RN/MDPerformed By: #### [id number] #### [facility] [address], [place] [address]Zmpxmfi [Mass/Vol]170 mg/nXHtwp71-29RlbwgaMccullough-Hyde Memorial Hospital Comment on above:Result Comment: Notified RN/MDPerformed By: #### [id number] #### [facility] [address], [place] [address]Rncbaoc [Mass/Vol]115 mg/uEGlni81-87OjtejjMccullough-Hyde Memorial Hospital Comment on above:Result Comment: Notified RN/MDPerformed By: #### [id number] #### [facility] [address], [place] [address]Majcdgy [Mass/Vol]111 mg/xGCdln38-61TnekbyMccullough-Hyde Memorial Hospital Comment on above:Result Comment: Notified RN/MDPerformed By: #### [id number] #### [facility] [address], [place] [address]Mzmsor Queryon 42-47-1761Cludrk QueryCoding Query From: Tessie Can RN To: Atiya GARDUNO; Sent: 01/06/2025 10:51:45 EDT ! Subject: Coding Query Due Date/Time: 01/07/2025 10:51:00 EDT Caller Name: MATT WATERMAN; Caller Number: Romaine , Documentation per a j2ee consultant in the medical record indicates this patient has been diagnosed as having: Pressure ulcer coccyx stage 3 The following is also documented in the medical record: 01/[address] Zepeda- 64-year-old male admitted with cellulitis of the right lower extremity also found to have stage [address] scan of lower extremity showed no organized abscess orradiographic evidence of osteomyelitis. He was seen by the infectious diseases service. They have made antibiotic recommendations I-view nursing assessment -> pressure ulcer coccyx present on admission Based on your medical judgment of the documented diagnoses by the j2ee consultant, do you agree with thediagnosis? [___]Yes, I agree with the diagnosis documented by the j2ee consultant. [___]No, I do not agree with the diagnosis documented by the j2ee consultant. Reason: [___]Other: Present on Admission [___] Y = Diagnosis was present at time of inpatient admission [___] N = Diagnosis was not present at time of inpatient admission In responding to this request, please exercise your independent professional judgement. The fact that a question is asked does not imply that any particular answer is desired or expected. Thank you![email or web address] [id number] From: Atiya GARDUNO To: Juan José RN, Tessie March; Sent: 01/07/2025 07:11:28 EDT Subject: RE: Coding Query Caller Name: MATT WATERMAN; Caller Number: Romaine , Joshua doneNormalMccullough-Hyde Memorial HospitalMagnesiumon 82-98-2637Nauvudxxg [Mass/Vol] 2.1 mg/dLNormal1.3-2.4FAdams County Regional Medical CenterComment on above:Order Comment: line packet dropped off nurse aware [id number] 01/07/2025 05:16:12 EDTPerformed By: #### [id number] #### [facility] [address], [place] [address]zSIBwu 04-85-6153pNXK46 mL/min/1.73 z9Svjdej>=59FishBaltimore VA Medical CenterComment on above:Performed By: #### [id number] #### [facility] [address], [place] [address]EQM w/ Auto Diffon 28-19-5721Wxqgblht Absolute0.0 E9/LNormal 0.0-0.2FAdams County Regional Medical CenterComment on above:Order Comment: May add on to todays. labs if not able, draw in a.m.Performed By: #### [id number] #### [facility] [address], [place] [address]Zjuasgjnc/100 WBC (Bld)0.5 %Normal0.0-2.0[facility] HospitalComment on above:Order Comment: May add on to todays. labs if not able, draw in a.m.Performed By: #### [id number] #### [facility] [address], [place] [address]Lnf Absolute0.2 E9/LNormal0.0-0.5FAdams County Regional Medical Center Comment on above:Order Comment: May add on to todays. labs if not able, draw in a.m.Performed By: #### [id number] #### [facility] [address], [place] [address]Qcifxazhoci/100 WBC (Bld)2.0 %Normal0.0-8.0[facility] HospitalComment on above:Order Comment: May add on to todays. labs if not able, draw in a.m.Performed By: #### [id number] #### [facility] [address], [place] [address]Vgmfmgprmyb distribution width (RBC) [Ratio]20.6 %High10.9-14.2 [facility] HospitalComment on above:Order Comment: May add on to todays. labs if not able, draw in a.m.Performed By: #### [id number] #### [facility] [address], [place] [address]Nghfaeqwkq (Bld) [Volume fraction]31.4 %Low37.7-49.0[facility] HospitalComment on above:Order Comment: May add on to todays. labs if not able, draw in a.m.Performed By: #### [id number] #### [facility] [address], [place] [address]Pcfpzyidcj (Bld) [Mass/Vol]10.1 g/dLLow13.5-17.5FAdams County Regional Medical CenterComment on above:Order Comment: May add on to todays. labs if not able, draw in a.m.Performed By: #### [id number] #### [facility] [address], [place] [address]Jayev Absolute1.3 E9/LNormal1.0-4.0[facility] Comment on above:Order Comment: May add on to todays. labs if not able, draw in a.m.Performed By: #### [id number] #### [facility] [address], [place] [address]Urlygwzefux/100 WBC (Bld)13.8 %Low14.0-50.0[facility] HospitalComment on above:Order Comment: May add on to todays. labs if not able, draw in a.m.Performed By: #### [id number] #### [facility] [address] [place] [address]LFI (RBC) [Entitic mass]24.5 pgLow27.0-34.0[facility] HospitalComment on above:Order Comment: May add on to todays. labs if not able, draw in a.m.Performed By: #### [id number] #### [facility] [address] [place] [address]TTHI (RBC) [Mass/Vol]32.2 g/rUXwxbzy49.4-36.0[facility] HospitalComment on above:Order Comment: May add on to todays. labs if not able, draw in a.m.Performed By: #### [id number] #### [facility] [address] [place] [address] 660[address]KDS (RBC) [Entitic vol]76.1 fLLow80.0-100.0[facility] HospitalComment on above:Order Comment: May add on to todays. labs if not able, draw in a.m.Performed By: #### [id number] #### [facility] [address] [place] [address]Bvvx Absolute0.7 E9/LNormal0.2-1.0[facility] Comment on above:Order Comment: May add on to todays. labs if not able, draw in a.m.Performed By: #### [id number] #### [facility] [address] [place] [address]Pactwomra/100 WBC (Bld)7.4 %Normal4.0-14.0[facility] HospitalComment on above:Order Comment: May add on to todays. labs if not able, draw in a.m.Performed By: #### [id number] #### [facility] [address], [place] [address]Thulok Absolute7.4 E9/LNormal2.0-7.5FAdams County Regional Medical Center Comment on above:Order Comment: May add on to todays. labs if not able, draw in a.m.Performed By: #### [id number] #### [facility] [address], [place] [address]Fhqyvm Auto76.3 %High36.0-75.0[facility] Comment on above:Order Comment: May add on to todays. labs if not able, draw in a.m.Performed By: #### [id number] #### [facility] [address], [place] [address]Jumwyqdm232.0 E9/RLtwagl452.0-500.0[facility] Comment on above:Order Comment: May add on to todays. labs if not able, draw in a.m.Performed By: #### [id number] #### [facility] [address] [place] [address]Jccwsrod mean volume (Bld) [Entitic vol]8.0 fLNormal6.4-10.8 [facility] HospitalComment on above:Order Comment: May add on to todays. labs if not able, draw in a.m.Performed By: #### [id number] #### [facility] [address], [place] [address]ZHM8.1 E12/LLow4.3-5.9[facility] HospitalComment on above:Order Comment: May add on to todays. labs if not able, draw in a.m. Performed By: #### [id number] #### [facility] [address] [place] [address]XDK3.6 E9/LNormal4.0-11.0[facility] HospitalComment on above:Order Comment: May add on to todays. labs if not able, draw in a.m. Performed By: #### [id number] #### [facility] [address], [place] [address]TLOmj 43-62-9323IFG5.5 mg/dLHigh<=1.9[facility] HospitalComment on above:Performed By: #### [id number] #### [facility] [address], [place] [address]DF Lower Extremity w/ Contrast Righton 92-34-9855IT Lower Extremity w/ Contrast RightExam Date/Time: 01/06/2025 09:11 EDT Reason for Exam: Pain Report IMPRESSION: NO SIGNIFICANT CHANGE FROM 01/03/2025, NOTED. EXAM: CT Lower Extremity w/ Contrast Right DATE: 01/06/2025 9:02 AM CLINICAL HISTORY: Pain. COMPARISON: 01/03/2025. TECHNIQUE: Spiral imaging was obtained from above the right knee through the right foot after the uneventful infusion of IV contrast. All CT scans at this facility use dose modulation, iterative reconstruction, and/or weight based dosing when appropriate to reduce radiation dose to as low as reasonably achievable.. FINDINGS: Ill-defined confluent soft tissue density anterior to the mid tibia (Series 7, Image 34) most consistent with cellulitis/phlegmon and predominantly superficial subcutaneous fat infiltration has not significantly changed from 01/03/2025. There is no organized fluid collection, soft tissue emphysema,, or other significant changes. GFR (mL/min/1/73m2) >60 Contrast: Isovue 300 Contrast amount in ml's: 100.00 Ordering Provider: Atiya QIU FINAL REPORT Dictated: 01/06/2025 9:51 am Daniel Vincent MD Signed (Electronic Signature): 01/06/2025 9:51 am Signed by: Daniel Vincent MD Transcribed by: AMBROCIO Technologist: AbigailMccullough-Hyde Memorial HospitalCapillary Glucose POCon 26-35-8227Butlubx [Mass/Vol]186 mg/rVRilu27-13BfmccyMccullough-Hyde Memorial HospitalComment on above:Result Comment: Notified RN/MDPerformed By: #### [id number] #### [facility] [address], [place] [address]Lvxtsaa [Mass/Vol]187 mg/cWAgql16-09XnpuasMccullough-Hyde Memorial Hospital Comment on above:Result Comment: Notified RN/MDPerformed By: #### [id number] #### [facility] [address] [place], [place] [address]Zpmqmcu [Mass/Vol]121 mg/tJQynb09-93UayjqyMccullough-Hyde Memorial Hospital Comment on above:Result Comment: Notified RN/MDPerformed By: #### [id number] #### [facility] [address], [place] [address]Tuhfmjb [Mass/Vol]98 mg/jYVkvgaq87-27FzxfdoMccullough-Hyde Memorial HospitalComment on above:Result Comment: Notified RN/MDPerformed By: #### [id number] #### [facility] [address] [place] [address]Sjheps Queryon 92-53-2014Llxurb QueryCoding Query From: Tessie Can RN To: Atiya GARDUNO; Sent: 01/06/2025 10:51:45 EDT ! Subject: Coding Query Due Date/Time: 01/07/2025 10:51:00 EDT Caller Name: MATT WATERMAN; Caller Number: , Documentation per a j2ee consultant in the medical record indicates this patient has been diagnosed as having: Pressure ulcer coccyx stage 3 The following is also documented in the medical record: 01/[address] Zepeda- 64-year-old male admitted with cellulitis of the right lower extremity also found to have stage [address] scan of lower extremity showed no organized abscess orradiographic evidence of osteomyelitis. He was seen by the infectious diseases service. They have made antibiotic recommendations I-view nursing assessment -> pressure ulcer coccyx present on admission Based on your medical judgment of the documented diagnoses by the j2ee consultant, do you agree with thediagnosis? [___]Yes, I agree with the diagnosis documented by the j2ee consultant. [___]No, I do not agree with the diagnosis documented by the j2ee consultant. Reason: [___]Other: Present on Admission [___] Y = Diagnosis was present at time of inpatient admission [___] N = Diagnosis was not present at time of inpatient admission In responding to this request, please exercise your independent professional judgement. The fact that a question is asked does not imply that any particular answer is desired or expected. Thank you!tessie [id number]-Hyde Memorial HospitalFerritinon 37-32-1843Wquivvju Mji503 ng/eFCjcqhd07-160YdspelMccullough-Hyde Memorial HospitalComment on above:Order Comment: May add on to todays. labs if not able, draw in a.m.Performed By: #### [id number] #### [facility] [address], [place] [address]Iqkbbbfx 73-93-7680Faedxr Lvl>22.3Normal>=6.7FAdams County Regional Medical CenterComment on above:Order Comment: May add on to todays. labs if not able, draw in a.m.Performed By: #### [id number] #### [facility] [address], [place] [address]GccU3oxx 12-20-8232HpJ0g (Bld) [Mass fraction]6.2 %High<=5.9 [facility] HospitalComment on above:Performed By: #### [id number] #### [facility] [address], [place] [address]Ptljbsnslakxkfhen Note - Case Manageron 01-06-2025 Interdisciplinary Note - Case ManagerInterdisciplinary Note - Glaze Mixer CRM to room 334 Patient is awake, alert and oriented. Patient is up in chair. Patient is from home with his life partner. Patient will have a ride at NH. PLOF requires assistance from life partner with ADL's, utilizes cane, rollator and wc as needed. Patient has verified his PCP and insurance. Patient is an inpatient. Patient IMM was completed. This gets reviewed. Patient is assigned to Atiya GOYAL, see notes. Patient has consults of Wound, ID and gen SX. Patient has cellulitis. His Right leg is wrapped. Patient is still pending his repeat wound cx. Patient declines any needs for DME, Paramed or HH care unless he needs IV ABX at DC. Patient then would need HH care and himself and life partner would learn. [place] ent had CT of leg, ID was in room mentioned awaiting CT results, Tighter compression wrap and possible removal of the / peeling skin from wound care. CRM provided contact info, white board updated. CRM will get updates from Atiya GOYAL at [address], ID final recs and final CX ID note update- Feel we can get him off the IV Zosyn as this only adds volume as well. Oral Zyvox to continue. Would suggest if CT scan does not show any drainable fluid collection for ongoing wound care and compression wrap. Will discuss with the hospitalist about patient's regular diuresis that he is on as he states he is not on his regular regime here. . CRM notes that repeat CT no change from prior CTAkron Children's HospitalComment on above:Result Comment: Electronically Signed By: Valentina Peoples\neno\Date and Time Signed: 01/06/25 11:51 EDTInterdisciplinary Note - Case ManagerInterdisciplinary Note - Glaze Mixer CRM to room 334 Patient is awake, alert and oriented. Patient is up in chair. Patient is from home with his life partner. Patient will have a ride at NH. PLOF requires assistance from life partner with ADL's, utilizes cane, rollator and wc as needed. Patient has verified his PCP and insurance. Patient is an inpatient. Patient IMM was completed. This gets reviewed. Patient is assigned to Atiya GOYAL, see notes. Patient has consults of Wound, ID and gen SX. Patient has cellulitis. His Right leg is wrapped. Patient is still pending his repeat wound cx. Patient declines any needs for DME, Paramed or HH care unless he needs IV ABX at NH. Patient then would need HH care and himself and life partner would learn. [place] ent had CT of leg, ID was in room mentioned awaiting CT results, Tighter compression wrap and possible removal of the / peeling skin from wound care. CRM provided contact info, white board updated. CRM will get updates from Atiya GOYAL at 10 AMNUniversity Hospitals Geauga Medical CenterComment on above:Result Comment: Electronically Signed By: Valentina Peoples\neno\Date and Time Signed: 01/06/25 09:33 EDTIronon 54-39-9641Phuc62 microgram/pHFdj96-119YjvqqkMccullough-Hyde Memorial HospitalComment on above:Order Comment: May add on to todays. labs if not able, draw in a.m.Performed By: #### [id number] #### [facility] [address], [place] [address]HLCww 01-30-0505NWP540 Int._Unit/DBmlkyb51-333NvxslkMccullough-Hyde Memorial HospitalComment on above:Order Comment: May add on to todays. labs if not able, draw in a.m.Performed By: #### [id number] #### [facility] [address], [place] [address]Iu Panel InformationOrdered By: Ronaldo Arcos on 50-23-5483Q- Reactive Protein, Quantitative5.5 mg/dLHigh<=1.9[facility]red Hospital DaytonPotassiumon 60-42-5849Euhibaoly [Moles/Vol]3.2 mmol/LLow3.5-5.3FAdams County Regional Medical CenterComment on above:Performed By: #### [id number] #### [facility] [address], [place] [address]Oarij Counton 01-81-8496Kpfytzrtvunc3.8 %Normal0.5-2.2FAdams County Regional Medical CenterComment on above:Order Comment: May add on to todays. labs if not able, draw in a.m.Performed By: #### [id number] #### [facility] [address], [place] [address]NMMD Calculatedon 24-50-4803KEKS460 microgram/fUFwpwbh934-786 [facility] Memorial HospitalComment on above:Order Comment: May add on to todays. labs if not able, draw in a.m.Performed By: #### [id number] #### [facility] [address], [place] [address]Ahqoxfqbjfz [Mass/Vol]188 mg/rEHjg326-936KktspkMccullough-Hyde Memorial HospitalComment on above:Order Comment: May add on to todays. labs if not able, draw in a.m.Performed By: #### [id number] #### [facility] [address], [place] [address]JBI With T4fr Reflexon 12-50-1275LXP Qn2.12 m[IU]/LNormal 0.34-5.60[facility] Memorial HospitalComment on above:Order Comment: May add on to todays. labs if not able, draw in a.m.Performed By: #### [id number] #### [facility] [address], [place] [address]Eiw B12on 99-38-3084Pwoycpako (Vitamin B12) [Mass/Vol]427 pg/mL Wrfndp54-6736EyknaaMccullough-Hyde Memorial HospitalComment on above:Order Comment: May add on to todays. labs if not able, draw in a.m.Performed By: #### [id number] #### [facility] [address], [place] [address]ATPut 33-25-8107Qljfi gap [Moles/Vol]11 mmol/LNormal6-16[facility] Memorial HospitalComment on above:Performed By: #### [id number] #### [facility] [address] [place] [address]UKG/Creat Ratio20 No SmbciOfnhik31-64PewlceMccullough-Hyde Memorial HospitalComment on above:Performed By: #### [id number] #### [facility] [address], [place] [address]Fmpdezo [Mass/Vol]8.6 mg/dLLow8.9-11.1FAdams County Regional Medical CenterComment on above:Performed By: #### [id number] #### [facility] [address], [place] [address]Emswgqjt [Moles/Vol]102 mmol/ZNoelml515-020SwvkelMccullough-Hyde Memorial HospitalComment on above:Performed By: #### [id number] #### [facility] [address], [place] [address]XT7 [Moles/Vol]28 mmol/MFoqpne52-14ZwtvtyMccullough-Hyde Memorial Hospital Comment on above:Performed By: #### [id number] #### [facility] [address], [place] [address]Kzcajhfxmr [Mass/Vol]0.7 mg/dLNormal0.5-1.3FAdams County Regional Medical CenterComment on above:Performed By: #### [id number] #### [facility] [address], [place] [address]Ieermuy [Mass/Vol]98 mg/aJWfmwrl57-742ZgqrqhMccullough-Hyde Memorial HospitalComment on above:Performed By: #### [id number] #### [facility] [address], [place] [address]Ddsptonhi [Moles/Vol]3.2 mmol/LLow3.5-5.3FAdams County Regional Medical CenterComment on above:Performed By: #### [id number] #### [facility] [address], [place] [address]Gfwwem [Moles/Vol]138 mmol/RMmiwca084-793FulleyMccullough-Hyde Memorial HospitalComment on above:Performed By: #### [id number] #### [facility] [address], [place] [address]Vvkt nitrogen [Mass/Vol]14 mg/dLNormal5-21[facility] Memorial HospitalComment on above:Performed By: #### [id number] #### [facility] [address], [place] [address]Mmxukqqfd Glucose POCon 12-86-4178Wkjdmrq [Mass/Vol]146 mg/dL Ifiy62-29TnqtrhMccullough-Hyde Memorial HospitalComment on above:Result Comment: Notified RN/MDPerformed By: #### [id number] #### [facility] [address], [place] [address]Tfdiseg [Mass/Vol]105 mg/qQUgln03-83QhuxjoMccullough-Hyde Memorial Hospital Comment on above:Result Comment: Notified RN/MDPerformed By: #### [id number] #### [facility] [address], [place] [address]Urcorgh [Mass/Vol]108 mg/gABfdo82-12KdrjuzMccullough-Hyde Memorial Hospital Comment on above:Result Comment: Cleaned MeterPerformed By: #### [id number] #### [facility] [address], [place] [address]Vthvqtu [Mass/Vol]111 mg/cOTzxl65-74GfujvsMccullough-Hyde Memorial Hospital Comment on above:Result Comment: Notified RN/MDPerformed By: #### [id number] #### [facility] [address], [place] [address]Fut & Hgbon 00-66-6721Nbhxftqzcc (Bld) [Volume fraction]31.3 % Low37.7-49.0[facility] Memorial HospitalComment on above:Performed By: #### [id number] #### [facility] [address], [place] [address]Asuapcqcai (Bld) [Mass/Vol]10.5 g/dLLow13.5-17.5FAdams County Regional Medical CenterComment on above:Performed By: #### [id number] #### [facility] [address], [place] [address]Bxeywwlbhxdqcrwdp Note - Case Manageron 01-05-2025 Interdisciplinary Note - Case ManagerInterdisciplinary Note - Glaze Mixer CRM to room 334 Patient is awake, alert and oriented. Patient is up in chair. Patient is from home with his life partner. Patient will have a ride at NH. PLOF requires assistance from life partner with ADL's, utilizes cane, rollator and wc as needed. Patient has verified his PCP and insurance. Patient is an inpatient. Patient IMM was completed. This gets reviewed. Patient is assigned to Atiya DYE BLENDER, see notes. Patient has consults of Wound, ID and gen SX. Patient has cellulitis. His Right leg is wrapped. Patient is still pending his repeat wound cx. Patient declines any needs for DME, Paramed or HH care unless he needs IV ABX at NH. Patient then would need HH care and himself and life partner would learn. CRM provided contact info, white board updated. CRM will get updates from Atiya DYE BLENDER at 10 AM Not a DC today, unsure of oral or IV ABX at DC, pending to see ID again Thursday, also getting PICC line placedNoMercy Health Clermont HospitalComment on above: Result Comment: Electronically Signed By: Valentina Peoples\.br\Date and Time Signed: 01/05/25 10:53 EDTInterdisciplinary Note - Case ManagerInterdisciplinary Note - Glaze Mixer CRM to room 334 Patient is awake, alert and oriented. Patient is up in chair. Patient is from home with his life partner. Patient will have a ride at NH. PLOF requires assistance from life partner with ADL's, utilizes cane, rollator and wc as needed. Patient has verified his PCP and insurance. Patient is an inpatient. Patient IMM was completed. This gets reviewed. Patient is assigned to Atiya DYE BLENDER, see notes. Patient has consults of Wound, ID and gen SX. Patient has cellulitis. His Right leg is wrapped. Patient is still pending his repeat wound cx. Patient declines any needs for DME, Paramed or HH care unless he needs IV ABX at DC. Patient then would need HH care and himself and life partner would learn. CRM provided contact info, white board updated. CRM will get updates from Atiya GOYAL at 10 AMNUniversity Hospitals Geauga Medical CenterComment on above:Result Comment: Electronically Signed By: Valentina Peoples\.br\Date and Time Signed: 01/05/25 08:43 EDTMagnesiumon 40-54-6078Sugsuevlv [Mass/Vol]1.9 mg/dLNormal1.3-2.4Fhyun [facility] Cross HospitalComment on above:Performed By: #### [id number] #### [facility] [address], [place] [address]Xlh Oclt Bldon 13-00-6749Gwfqre Bld StlNegativeNormalNegative [facility] HospitalComment on above:Performed By: #### [id number] #### [facility] [address], [place] [address]VX Chest Single Viewon 71-11-2172JV Chest Single ViewExam Date/Time: 01/05/2025 12:56 EDT Reason for Exam: PICC line placement Report IMPRESSION: RIGHT UPPER EXTREMITY PICC LINE IN EXPECTED POSITION. COPD, WHICH IS BEST EVALUATED CLINICALLY. EXAM: XR Chest Single View DATE: 01/05/2025 12:13 PM CLINICAL HISTORY: PICC line placement. Hx diabetes, a-fib, CAD, CHF, COPD, gastric bypass sx. former smoker. COMPARISON: 07/23/2024. TECHNIQUE: A portable upright AP radiograph of the chest was obtained. FINDINGS: A right upper extremity PICC line is noted with its tip overlying the inferior third of the SVC. There is no developing pulmonary infiltrate, cardiomegaly, pleural effusion, vascular congestion, pneumothorax, or other significant changes identified. Hyperinflation and mild coarsening of the bronchovascular structures consistent with COPD appear unchanged from the prior study. Ordering Provider: Atiya QIU FINAL REPORT Dictated: 01/05/2025 1:01 pm Daniel Vincent MD Signed (Electronic Signature): 01/05/2025 1:01 pm Signed by: Daniel Vincent MD Transcribed by: AMBROCIO Technologist: CuauhtemocMccullough-Hyde Memorial HospitaleGFRon 07-08-7855yEPW081 mL/min/1.73 b6Gflsbt>=59[facility] HospitalComment on above:Performed By: #### [id number] #### [facility] [address], [place] [address]RFErh 64-55-9360Fngvk gap [Moles/Vol]10 mmol/LNormal6-16[facility] HospitalComment on above:Performed By: #### [id number] #### [facility] [address], [place] [address]FWK/Creat Ratio28 No WhdqtHsjx85-25UhblvqMccullough-Hyde Memorial Hospital Comment on above:Performed By: #### [id number] #### [facility] [address], [place] [address]Wwofiok [Mass/Vol]8.4 mg/dLLow8.9-11.1FAdams County Regional Medical CenterComment on above:Performed By: #### [id number] #### [facility] [address], [place] [address]Djjomaeh [Moles/Vol]102 mmol/EJdvegh991-101WizjtiMccullough-Hyde Memorial HospitalComment on above:Performed By: #### [id number] #### [facility] [address], [place] [address]KH6 [Moles/Vol]26 mmol/HJutqyn58-78JqkkhcMccullough-Hyde Memorial Hospital Comment on above:Performed By: #### [id number] #### [facility] [address], [place] [address]Rqzzwyehls [Mass/Vol]0.6 mg/dLNormal0.5-1.3FAdams County Regional Medical CenterComment on above:Performed By: #### [id number] #### [facility] [address], [place] [address]Dgruwoc [Mass/Vol]117 mg/wLZlajys77-846ObdqbqMccullough-Hyde Memorial HospitalComment on above:Performed By: #### [id number] #### [facility] [address], [place] [address]Lgqcihrup [Moles/Vol]3.1 mmol/LLow3.5-5.3FAdams County Regional Medical CenterComment on above:Performed By: #### [id number] #### [facility] [address], [place] [address]Bsebdt [Moles/Vol]135 mmol/WRsfoxp131-026HvcvzkMccullough-Hyde Memorial HospitalComment on above:Performed By: #### [id number] #### [facility] [address], [place] [address]Pvei nitrogen [Mass/Vol]17 mg/dLNormal5-21[facility] HospitalComment on above:Performed By: #### [id number] #### [facility] [address], [place] [address]RNZ w/ Auto Diffon 63-21-7586Szsqwduq Absolute0.0 E9/LNormal 0.0-0.2FAdams County Regional Medical CenterComment on above:Performed By: #### [id number] #### [facility] [address] [place] [address]Tojlqqsov/100 WBC (Bld)0.3 %Normal0.0-2.0[facility] HospitalComment on above:Performed By: #### [id number] #### [facility] [address] [place] [address]Zxk Absolute0.1 E9/LNormal0.0-0.5FAdams County Regional Medical Center Comment on above:Performed By: #### [id number] #### [facility] [address] [place] [address]Amdseqsevtu/100 WBC (Bld)0.9 %Normal0.0-8.0[facility] HospitalComment on above:Performed By: #### [id number] #### [facility] [address] [place] [address]Ieapeayupcy distribution width (RBC) [Ratio]20.5 %High10.9-14.2 [facility] HospitalComment on above:Performed By: #### [id number] #### [facility] [address] [place] [address]Zomjjgwxyx (Bld) [Volume fraction]29.4 %Low37.7-49.0[facility] Memorial HospitalComment on above:Performed By: #### [id number] #### [facility] [address] [place] [address]Fhkszvidee (Bld) [Mass/Vol]9.7 g/dLLow13.5-17.5FAdams County Regional Medical CenterComment on above:Performed By: #### [id number] #### [facility] [address] [place] [address]Walik Absolute1.1 E9/LNormal1.0-4.0[facility] Comment on above:Performed By: #### [id number] #### [facility] [address] [place] [address]Pnxgayysrvp/100 WBC (Bld)14.0 %Olraed88.0-50.0[facility] HospitalComment on above:Performed By: #### [id number] #### [facility] [address] [place] [address]CUJ (RBC) [Entitic mass]25.3 pgLow27.0-34.0[facility] HospitalComment on above:Performed By: #### [id number] #### [facility] [address] [place] [address]EPTZ (RBC) [Mass/Vol]33.0 g/lEUcykon54.4-36.0[facility] HospitalComment on above:Performed By: #### [id number] #### [facility] [address] [place] [address]RQN (RBC) [Entitic vol]76.6 fLLow80.0-100.0[facility] HospitalComment on above:Performed By: #### [id number] #### [facility] [address] [place] [address]Mspy Absolute0.9 E9/LNormal0.2-1.0[facility] Comment on above:Performed By: #### [id number] #### [facility] [address] [place] [address]Ufuvwhfni/100 WBC (Bld)11.4 %Normal4.0-14.0[facility] HospitalComment on above:Performed By: #### [id number] #### [facility] [address] [place] [address]Jvfbgz Absolute5.8 E9/LNormal2.0-7.5FAdams County Regional Medical Center Comment on above:Performed By: #### [id number] #### [facility] [address] [place] [address]Izvptq Auto73.4 %Bgcdoe67.0-75.0[facility] Comment on above:Performed By: #### [id number] #### [facility] [address], [place] [address]Frpxxkxx806.0 E9/UNqeamm525.0-500.0[facility] Comment on above:Performed By: #### [id number] #### [facility] [address], [place] [address]Klkhadwo mean volume (Bld) [Entitic vol]7.9 fLNormal6.4-10.8 [facility] HospitalComment on above:Performed By: #### [id number] #### [facility] [address], [place] [address]GIR6.8 E12/LLow4.3-5.9[facility] HospitalComment on above:Performed By: #### [id number] #### [facility] [address], [place] [address]DSJ4.9 E9/LNormal4.0-11.0[facility] HospitalComment on above:Performed By: #### [id number] #### [facility] [address], [place] [address]Pmcvorzvx Glucose POCon 94-89-0772Mafwfkc [Mass/Vol]158 mg/dL Kpnf22-60Gp[address] [place], [place] [address]Comment on above:Result Comment: Notified RN/MDPerformed By: #### [id number] #### [facility] [address], [place] [address]Meorwpw [Mass/Vol]115 mg/zEFrnd17-81DdfpqwMccullough-Hyde Memorial Hospital Comment on above:Result Comment: Notified RN/MDPerformed By: #### [id number] #### [facility] [address], [place] [address]Zxwoxfd [Mass/Vol]154 mg/lEMfno35-99QlindfMccullough-Hyde Memorial Hospital Comment on above:Result Comment: Notified RN/MDPerformed By: #### [id number] #### [facility] [address], [place] [address]Lonxzmj [Mass/Vol]111 mg/zAQdtk34-40LuerzfMccullough-Hyde Memorial Hospital Comment on above:Result Comment: Notified RN/MDPerformed By: #### [id number] #### [facility] [address] [place], [place] [address]OY Note-Physicianon 45-23-9222RJ Note-PhysicianED Note-Physician Basic Information Time Seen: Ann BROWN, Minerva Matos 01/02/2025 12:21 Chief Complaint patient presents with cellulitis to right lower leg with fevers and generalized illness felling. hxdiabetes and multiple foot/toe amputations for infections History of Present Illness Patient is a 64-year-old male with history of atrial fibrillation on Eliquis, CHF, CAD, COPD, hypertension, hyperlipidemia, diabetes, and osteomyelitis who presents to the ED with right lower leg cellulitis that began 3 to 4 days ago. Patient denies any known injuries or trauma. He states over the past 3 to 4 days he has been experiencing increased erythema, edema, and pain to the right lower extremity. Patient notes he has developed a skin tear secondary to the swelling as well. Patient notes he has a history of osteomyelitis requiring numerous toe amputations. Patient does note a history ofdiabetes. Patient notes chills and malaise but denies any known fevers. He does note nausea as well. Patient denies a history of DVT/PE and has been compliant with his Eliquis. 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 Kole Emery. Review of Systems A 10 point review of systems is negative except as noted above. Medical and Surgical History: Reviewed and noted Social history: Lives at home Family History: Reviewed. Tobacco: use Physical Exam Vitals & Measurements T: 36.7 ???C(Oral) HR: 86(Peripheral) RR: 18 BP: 162/90 SpO2: 98% HT: 180 cm General: The patient appears well and in no apparent distress. Patient is resting comfortably on cart. Skin: Warm, dry, no pallor noted. 2 well-healed approximate 4 cm vertical surgical scars over the spine. No surrounding erythema. No fluctuance/induration. No drainage. Head: Normocephalic, atraumatic Neck: No JVD. No midline spinal tenderness to palpation, step-off, or crepitus. Eye: PERRLA, EOMI ENT: Moist mucus membranes Cardiovascular: Regular rate normal peripheral perfusion Respiratory: No respiratory distress no accessory muscle use no obvious audible wheezing Chest Wall: no deformity Musculoskeletal: normal ROM, no deformity. Diffuse edema and tenderness to palpation to the right lower extremity extending from the knee to ankle. Negative Homans' sign. Chronic bilateral venous stasis. 5 cm x 2 cm linear region of erythema and increased warmth just inferior to the right knee. No f luctuance. Erythema is not circumferential. No lymphadenitis. 5 cm skin tear overlying the mid right fibula with mild clear drainage. Status post right toe amputations. Neurovascularly intact. GI: Soft no obvious distention. No rebound or rigidity. No guarding. No tenderness. Neurological: A&O moves all extremities equal strength and symmetry Psychiatric: Cooperative and appropriate Medical Decision Making Patient is a 64-year-old male with history of atrial fibrillation on Eliquis, CHF, CAD, COPD, hypertension, hyperlipidemia, diabetes, and osteomyelitis who presents to the ED with right lower leg cellulitis that began 3 to 4 days ago. Patient is hemodynamically stable and afebrile. He is given 1 L normal saline, Zofran and morphine. Septic workup is obtained. No leukocytosis. Potassium slightly decreased at 3.2, patient is given oral potassium replacement. Lactic acid within normal limits of 1.4. CRP significantly elevated at 23.8 along with CRP of 64. Tip/fib x-ray is not show any acute osseous abnormalities. Preliminary venous duplex ultrasound is without any notable DVTs, however imagingis limited secondary to swelling. With the patient's history of diabetes and osteomyelitis, I do feel admission for IV antibiotic is appropriate. I discussed antibiotics with the clinical pharmacist who is recommending Rocephin as the patient does not have a history of Pseudomonas or MRSA. I discussed admission with the patient who is agreeable. Case was discussed with the hospitalist who is admitting the patient for the management of care. Assessment/Plan Cellulitis of right leg without foot (L03.115: Cellulitis of right lower limb) Malaise (R53.81: Other malaise) Orders: morphine, 4 mg = 1 mL, Injection, IV Push, Once, Stop date 01/02/25 12:41:00 EDT, STAT, Start date 01/02/25 12:41:00 EDT, 01/02/25 12:41:00 EDT ondansetron, 4 mg = 2 mL, Injection, IV Push, Once, Stop date 01/02/25 12:41:00 EDT, STAT, Start date 01/02/25 12:41:00 EDT, 01/02/25 12:41:00 EDT potassium chloride, 40 mEq = 2 tab(s), Tab-ER, Oral, Once, Stop date 01/02/25 14:46:00 EDT, STAT, Start date 01/02/25 14:46:00 EDT, 01/02/25 14:46:00 EDT Sodium Chloride 0.9% intravenous solution, 1,000 mL, Soln-IV, IV, Once, Stop date 01/02/25 12:38:00EDT, STAT, Start date 01/02/25 12:38:00 EDT, Infuse over 61, minute(s) B-Type Natriuretic Peptide Blood Culture Charcoal Blood Culture Charcoal C-Reactive Protein CBC w/ Auto Diff Comprehensive Metabolic Panel Continuous Pulse Oximetry ECG 12 Lead Adult ED Cardiac Monitoring eGFR Lactic Acid Lactic Acid Oxygen Therapy PT & (more content not included)...[facility] HospitalComment on above:Result Comment: Electronically Signed By: Minerva Juarez PA-C\.br\Date and Time Signed: 01/02/2523:40 EDT\.br\Electronically Co-Signed By: Mark Vela DO\.br\Date and Time Co-Signed: 01/04/25 00:34 EDTInterdisciplinary Note - Case Manageron 51-63-8968Hacggaofyyypcprlv Note - Case ManagerInterdisciplinary Note - Glaze Mixer Patient awake, alert and oriented. at bedside and he will transport at dc. 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 PLOF requires assistance from with ADL's, utilizes cane, rollator andwc. Does not have any outside services. Declined HH and paramedicine service. States agreeable to HH if for IV antibiotics only. IMM reviewed. Melani DYE BLENDER is attending, see notes. Patient will be here until at least Thursday d/t pending cultures. Denies any dc needs. WHite board updatedNoMercy Health Clermont HospitalComment on above:Result Comment: Electronically Signed By: Cecilia Acevedo\.br\Date and Time Signed: 01/04/25 11:16 EDTeGFRon 34-82-8623wZVF651 mL/min/1.73 y8Femlsq>=59[facility] Comment on above:Performed By: #### [id number] #### [facility] [address], [place] [address]FHTvm 94-61-3823Sdqop gap [Moles/Vol]11 mmol/LNormal6-16[facility] HospitalComment on above:Performed By: #### [id number] #### [facility] [address], [place] [address]CMA/Creat Ratio24 No TruwhUpce42-83UnlrhsMccullough-Hyde Memorial Hospital Comment on above:Performed By: #### [id number] #### [facility] [address], [place] [address]Vbmiruh [Mass/Vol]8.5 mg/dLLow8.9-11.1FAdams County Regional Medical CenterComment on above:Performed By: #### [id number] #### [facility] [address], [place] [address]Eggnqioj [Moles/Vol]98 mmol/VZtu332-962IgkrodMccullough-Hyde Memorial HospitalComment on above:Performed By: #### [id number] #### [facility] [address], [place] [address]UU6 [Moles/Vol]24 mmol/ZFuwmzy63-81WfviusMccullough-Hyde Memorial Hospital Comment on above:Performed By: #### [id number] #### [facility] [address], [place] [address]Bpgawqfced [Mass/Vol]0.8 mg/dLNormal0.5-1.3FAdams County Regional Medical CenterComment on above:Performed By: #### [id number] #### [facility] [address], [place] [address]Maslgws [Mass/Vol]134 mg/rADtcvod73-784IncnsoMccullough-Hyde Memorial HospitalComment on above:Performed By: #### [id number] #### [facility] [address], [place] [address]Rshgauisg [Moles/Vol]3.4 mmol/LLow3.5-5.3FAdams County Regional Medical CenterComment on above:Performed By: #### [id number] #### [facility] [address] [place] [address]Xmjxyb [Moles/Vol]130 mmol/UCoq312-885RriaurMccullough-Hyde Memorial HospitalComment on above:Performed By: #### [id number] #### [facility] [address] [place] [address]Elzc nitrogen [Mass/Vol]19 mg/dLNormal5-21[facility] HospitalComment on above:Performed By: #### [id number] #### [facility] [address] [place] [address]CFV w/ Auto Diffon 62-63-0192Cgaisuri Absolute0.2 E9/LNormal 0.0-0.2FAdams County Regional Medical CenterComment on above:Performed By: #### [id number] #### [facility] [address] [place] [address]Ufxgcrzns/100 WBC (Bld)1.6 %Normal0.0-2.0[facility] HospitalComment on above:Performed By: #### [id number] #### [facility] [address] [place] [address]Yzx Absolute0.0 E9/LNormal0.0-0.5FAdams County Regional Medical Center Comment on above:Performed By: #### [id number] #### [facility] [address] [place] [address]Gmcvdeoknrt/100 WBC (Bld)0.0 %Normal0.0-8.0[facility] HospitalComment on above:Performed By: #### [id number] #### [facility] [address] [place] [address]Vutcpuyyqrq distribution width (RBC) [Ratio]21.1 %High10.9-14.2 [facility] HospitalComment on above:Performed By: #### [id number] #### [facility] [address], [place] [address]Fpepbloxma (Bld) [Volume fraction]32.2 %Low37.7-49.0[facility] HospitalComment on above:Performed By: #### [id number] #### [facility] [address], [place] [address]Qvcjmweqgg (Bld) [Mass/Vol]10.6 g/dLLow13.5-17.5FAdams County Regional Medical CenterComment on above:Performed By: #### [id number] #### [facility] [address] [place] [address]Unzxr Absolute0.7 E9/LLow1.0-4.0[facility] Comment on above:Performed By: #### [id number] #### [facility] [address] [place] [address]Ppqyojbawyr/100 WBC (Bld)6.4 %Low14.0-50.0[facility] HospitalComment on above:Performed By: #### [id number] #### [facility] [address] [place] [address]PNS (RBC) [Entitic mass]25.4 pgLow27.0-34.0[facility] HospitalComment on above:Performed By: #### [id number] #### [facility] [address], [place] [address]IZNT (RBC) [Mass/Vol]33.1 g/sJKxrplw38.4-36.0[facility] HospitalComment on above:Performed By: #### [id number] #### [facility] [address], [place] [address]ZQO (RBC) [Entitic vol]77.0 fLLow80.0-100.0[facility] HospitalComment on above:Performed By: #### [id number] #### [facility] [address], [place] [address]Xazy Absolute0.9 E9/LNormal0.2-1.0[facility] Comment on above:Performed By: #### [id number] #### [facility] [address], [place] [address]Gbgclyele/100 WBC (Bld)9.0 %Normal4.0-14.0[facility] HospitalComment on above:Performed By: #### [id number] #### [facility] [address], [place] [address]Okdyjl Absolute8.5 E9/LHigh2.0-7.5FAdams County Regional Medical Center Comment on above:Performed By: #### [id number] #### [facility] [address], [place] [address]Dklcmw Auto83.0 %High36.0-75.0[facility] Comment on above:Performed By: #### [id number] #### [facility] [address], [place] [address]Ctvdwisg009.0 E9/BHagwal617.0-500.0[facility] Comment on above:Performed By: #### [id number] #### [facility] [address], [place] [address]Vziylvlt mean volume (Bld) [Entitic vol]8.0 fLNormal6.4-10.8 [facility] HospitalComment on above:Performed By: #### [id number] #### [facility] [address], [place] [address]WIR6.2 E12/LLow4.3-5.9[facility] HospitalComment on above:Performed By: #### [id number] #### [facility] [address], [place] [address]ZVD61.2 E9/LNormal4.0-11.0[facility] HospitalComment on above:Performed By: #### [id number] #### [facility] [address], [place] [address]TF Lower Extremity w/ Contrast Righton 73-07-1827FB Lower Extremity w/ Contrast RightExam Date/Time: 01/03/2025 11:08 EDT Reason for Exam: cellulitis;Other (please specify) Report IMPRESSION: NO ORGANIZED ABSCESS OR RADIOGRAPHIC EVIDENCE OF OSTEOMYELITIS IDENTIFIED BY CT. EXAM: CT Lower Extremity w/ Contrast Right DATE: 01/03/2025 11:03 AM CLINICAL HISTORY: cellulitis. COMPARISON: Right tibia and fibula radiographs lower extremity venous ultrasound 01/02/2025.. TECHNIQUE: Spiral imaging was obtained from above the right knee to the right ankle after the uneventful administration of IV contrast. All CT scans at this facility use dose modulation, iterative reconstruction, and/or weight based dosing when appropriate to reduce radiation dose to as low as reasonably achievable. FINDINGS: Confluent soft tissue edema is noted anterior to the mid tibia and mid subcutaneous ill-defined density elsewhere in the leg. There is no organized fluid collection, soft tissue emphysema, periosteal reaction, significant joint effusion, myotendinous disruption or other acute findings identified. Mild to moderate changes are noted, predominantly of the right ankle. GFR (mL/min/1/73m2) >60 Contrast: Isovue 300 Contrast amount in ml's: 100.00 Ordering Provider: Loan Glez FINAL REPORT Dictated: 01/03/2025 11:23 am Daniel Vincent MD Signed (Electronic Signature): 01/03/2025 11:23 am Signed by: Daniel Vincent MD Transcribed by: AMBROCIO Technologist: AbigailMccullough-Hyde Memorial HospitalCapillary Glucose POCon 43-68-8912Awrckfm [Mass/Vol]155 mg/iEYgtw00-25TpupeaMccullough-Hyde Memorial HospitalComment on above:Result Comment: Notified RN/MDPerformed By: #### [id number] #### [facility] [address], [place] [address]Rnryhrq [Mass/Vol]106 mg/eHBddj67-60SwcqquMccullough-Hyde Memorial Hospital Comment on above:Result Comment: Notified RN/MDPerformed By: #### [id number] #### [facility] [address], [place] [address]Flmvrkn [Mass/Vol]195 mg/jCRzhu57-42IrawtzMccullough-Hyde Memorial Hospital Comment on above:Result Comment: Notified RN/MDPerformed By: #### [id number] #### [facility] [address], [place] [address]Jxtwbsd [Mass/Vol]109 mg/lXGhga48-45Otzjp[address] Comment on above:Result Comment: Notified RN/MDPerformed By: #### [id number] #### [facility] [address], [place] [address]Hrqcter [Mass/Vol]139 mg/hUTfpg74-14Rhleed[address] Comment on above:Result Comment: Notified RN/MDPerformed By: #### [id number] #### [facility] [address], [place] [address]Ytgzwsaruigymmotb Note - Case Manageron 01-03-2025 Interdisciplinary Note - Case ManagerInterdisciplinary Note - Glaze Mixer CM spoke with patient and in room, he will transport. Patient is alert and oriented and participates in discharge planning. Melani JHONNY is following, see notes, saw patient earlier today. Patient was admitted on 01/02 fro cellulitis. Has a consults with wound, ID, GS. Patient verified his Backside Grinder, Dr. Janet Otero is acting as his PCP. His number is [phone]. A copy of his [facility] card was sent to . DME was reviewed. IMM was signed on 01/02. Reviewed Medicare rights, denies any questions. Patient white board updated, and CM contact information provided.[facility] HospitalComment on above:Result Comment: Electronically Signed By: Aime ISAEBL, Radha\.br\Date and Time Signed: 01/03/2515:06 EDTInterdisciplinary Note - Nursingon 01-03-2025 Interdisciplinary Note - NursingInterdisciplinary Note - Nursing Reason for consult: rle wound Reviewed medical & surgical history: yes Wound #1 Type: blister that popped Location: rle Size: 6fus3jhs9.2cm Granulation/Slough/Eschar: Periwound: red surrounding Drainage:moderate . Education: cleanse with saline apply selvin cover with non stick dressing and wrap with kerlix and paper tape. pt has hx of heart issues not appropriate for oliva boots at this time. Report: Follow up: follow up out patient wound clinic [facility] if pt is agreeable Placed on discharge instructions.NormalMccullough-Hyde Memorial HospitalUS Lower Extremity Venous Duplex Righton 24-68-4133ZB Lower Extremity Venous Duplex Right Exam Date/Time: 01/02/2025 17:20 EDT Reason for Exam: Edema Report IMPRESSION: NO RIGHT LOWER EXTREMITY DVT IDENTIFIED. EXAM: US Lower Extremity Venous Duplex Right DATE: 01/02/2025 4:42 PM CLINICAL HISTORY: Edema. COMPARISON: None available. TECHNIQUE: Grayscale, compression, color and waveform Doppler analysis of the right lower extremity venous systems was performed with augmentation. Spectral Doppler waveforms were evaluated for spontaneity, phasicity and appropriate augmentation. FINDINGS: Essentially is mildly limited by ill-defined lower extremity edema/cellulitis and for visualization of the proximal right greater saphenous vein. There is no deep or superficial venous thrombosis, abnormal masses, organized fluid collections, or other findings of concern identified within the right lower extremity. No DVT present within the visualized left common femoral vein. Ordering Provider: Minerva Juarez FINAL REPORT Dictated: 01/03/2025 11:28 am Daniel Vincent MD Signed (Electronic Signature): 01/03/2025 11:28 am Signed by: Daniel Vincent MD Transcribed by: AMBROCIO Technologist: ABNormalMccullough-Hyde Memorial HospitaleGFRon 44-89-3035hCQU60 mL/min/1.73 j6Rnckcv>=59[facility] HospitalComment on above:Performed By: #### [id number] #### [facility] [address], [place] [id number] 28-87-503590LaxrraTfcfzfznue [facility] Medical CenterBNPon 36-43-4438Ahz Ctr BNPPassNormalMccullough-Hyde Memorial HospitalComment on above: Performed By: #### [id number] #### [facility] [address], [place] [address]Cpruwovjwnf peptide B (Bld) [Mass/Vol]63 pg/mLNormal5-80[facility] HospitalComment on above:Performed By: #### [id number] #### [facility] [address] [place] [address]BOM w/ Auto Diffon 73-66-5401Swjqapti Absolute0.1 E9/LNormal 0.0-0.2FAdams County Regional Medical CenterComment on above:Performed By: #### [id number] #### [facility] [address] [place] [address]Yrptofslq/100 WBC (Bld)0.9 %Normal0.0-2.0[facility] HospitalComment on above:Performed By: #### [id number] #### [facility] [address] [place] [address]Cin Absolute0.0 E9/LNormal0.0-0.5FAdams County Regional Medical Center Comment on above:Performed By: #### [id number] #### [facility] [address] [place] [address]Ezzsehzztjp/100 WBC (Bld)0.0 %Normal0.0-8.0[facility] HospitalComment on above:Performed By: #### [id number] #### [facility] [address] [place] [address]Gmewidspkpz distribution width (RBC) [Ratio]21.0 %High10.9-14.2 [facility] HospitalComment on above:Performed By: #### [id number] #### [facility] [address] [place] [address]Vfyzatysqn (Bld) [Volume fraction]32.4 %Low37.7-49.0[facility] HospitalComment on above:Performed By: #### [id number] #### [facility] [address] [place] [address]Awjtvzxkjw (Bld) [Mass/Vol]11.1 g/dLLow13.5-17.5FAdams County Regional Medical CenterComment on above:Performed By: #### [id number] #### [facility] [address] [place] [address]Xhkmd Absolute0.6 E9/LLow1.0-4.0[facility] Comment on above:Performed By: #### [id number] #### [facility] [address], [place] [address]Kjcpezzlqbo/100 WBC (Bld)6.3 %Low14.0-50.0[facility] HospitalComment on above:Performed By: #### [id number] #### [facility] [address], [place] [address]EZL (RBC) [Entitic mass]26.2 pgLow27.0-34.0[facility] HospitalComment on above:Performed By: #### [id number] #### [facility] [address] [place] [address]DMFK (RBC) [Mass/Vol]34.3 g/sSXscdjz32.4-36.0[facility] HospitalComment on above:Performed By: #### [id number] #### [facility] [address] [place] [address]IJU (RBC) [Entitic vol]76.3 fLLow80.0-100.0[facility] HospitalComment on above:Performed By: #### [id number] #### [facility] [address] [place] [address]Cbqk Absolute0.7 E9/LNormal0.2-1.0[facility] Comment on above:Performed By: #### [id number] #### [facility] [address], [place] [address]Kydhhtalg/100 WBC (Bld)7.4 %Normal4.0-14.0[facility] HospitalComment on above:Performed By: #### [id number] #### [facility] [address], [place] [address]Kedmuk Absolute8.7 E9/LHigh2.0-7.5FAdams County Regional Medical Center Comment on above:Performed By: #### [id number] #### [facility] [address], [place] [address]Stuzjo Auto85.4 %High36.0-75.0[facility] Comment on above:Performed By: #### [id number] #### [facility] [address], [place] [address]Qcfwdcop453.0 E9/ZIfuchk490.0-500.0[facility] Comment on above:Performed By: #### [id number] #### [facility] [address], [place] [address]Kwepylfh mean volume (Bld) [Entitic vol]7.7 fLNormal6.4-10.8 [facility] HospitalComment on above:Performed By: #### [id number] #### [facility] [address] [place] [address]CIV2.3 E12/LNormal4.3-5.9[facility] HospitalComment on above:Performed By: #### [id number] #### [facility] [address] [place] [address]JEA41.1 E9/LNormal4.0-11.0[facility] HospitalComment on above:Performed By: #### [id number] #### [facility] [address], [place] [address]CDRum 51-11-0043Fcxtkwt [Mass/Vol]3.2 g/dLLow3.3-5.0[facility] HospitalComment on above:Performed By: #### [id number] #### [facility] [address], [place] [address]Fohjykj/Globulin [Mass ratio]0.9 {ratio}Low1.1-2.2FAdams County Regional Medical CenterComment on above:Performed By: #### [id number] #### [facility] [address], [place] [address]Srt Phos66 Int._Unit/BOqghyl49-22YbbsjpMccullough-Hyde Memorial Hospital Comment on above:Performed By: #### [id number] #### [facility] [address], [place] [address]JFY93 Int._Unit/LNormal6-46[facility] HospitalComment on above:Performed By: #### [id number] #### [facility] [address], [place] [address]Itfqg gap [Moles/Vol]10 mmol/LNormal6-16[facility] HospitalComment on above:Performed By: #### [id number] #### [facility] [address], [place] [address]EHD07 Int._Unit/LNormal5-43[facility] HospitalComment on above:Performed By: #### [id number] #### [facility] [address], [place] [address]Ronb Total1.3 mg/dLHigh0.0-1.1FAdams County Regional Medical Center Comment on above:Performed By: #### [id number] #### [facility] [address], [place] [address]YQH/Creat Ratio21 No JruulAyiz31-36SfutlpMccullough-Hyde Memorial Hospital Comment on above:Performed By: #### [id number] #### [facility] [address], [place] [address]Vrhxbar [Mass/Vol]8.6 mg/dLLow8.9-11.1FAdams County Regional Medical CenterComment on above:Performed By: #### [id number] #### [facility] [address], [place] [address]Ashqziht [Moles/Vol]98 mmol/JBcv609-604VmxbbxMccullough-Hyde Memorial HospitalComment on above:Performed By: #### [id number] #### [facility] [address], [place] [address]KN9 [Moles/Vol]28 mmol/APfnvci09-17DqkspqMccullough-Hyde Memorial Hospital Comment on above:Performed By: #### [id number] #### [facility] [address], [place] [address]Ldgpvjzxag [Mass/Vol]0.8 mg/dLNormal0.5-1.3FAdams County Regional Medical CenterComment on above:Performed By: #### [id number] #### [facility] [address], [place] [address]Aplytonj (S) [Mass/Vol]3.6 g/dLNormal1.4-4.0[facility] Memorial HospitalComment on above:Performed By: #### [id number] #### [facility] [address], [place] [address]Inkjbct [Mass/Vol]133 mg/jZVdinsg97-267CaqpmxMccullough-Hyde Memorial HospitalComment on above:Performed By: #### [id number] #### [facility] [address] [place] [address]Xgpeehuas [Moles/Vol]3.2 mmol/LLow3.5-5.3FAdams County Regional Medical CenterComment on above:Performed By: #### [id number] #### [facility] [address] [place] [address]Bdzldiq [Mass/Vol]6.8 g/dLNormal6.0-7.8[facility] Memorial HospitalComment on above:Performed By: #### [id number] #### [facility] [address] [place] [address]Ywmhhb [Moles/Vol]133 mmol/VOsg868-403EjwfokMccullough-Hyde Memorial HospitalComment on above:Performed By: #### [id number] #### [facility] [address], [place] [address]Soou nitrogen [Mass/Vol]17 mg/dLNormal5-21[facility] Memorial HospitalComment on above:Performed By: #### [id number] #### [facility] [address], [place] [address]TFYnc 96-22-9866ILT29.8 mg/dLHigh<=1.9[facility] HospitalComment on above:Performed By: #### [id number] #### [facility] [address] [place] [address]Vyqhyzrci Glucose POCon 44-94-8794Ngjdnzs [Mass/Vol]147 mg/dL Nxin38-10CnuiugMccullough-Hyde Memorial HospitalComment on above:Result Comment: Notified RN/MDPerformed By: #### [id number] #### [facility] [address], [place] [address]PX Clinical Summaryon [id number] Clinical SummaryED Clinical Summary [address] [address] ED Clinical Summary Person Information Name: MATT WATERMAN [place] Age: 64 Years : 1960 Sex: Male Language: Sao Tomean PCP: SURAJ LIZ MD Marital Status: Life Partner Phone: [phone] Visit Id: Visit Reason: Fever; Malaise; Cellulitis - Leg; CELLULITIS Speciality: Acuity: 3 Enc Type: Inpatient Med Service: Medical Arrival: 01/02/2025 12:01:34 Discharge: LOS: 000 06:10 Checkin: 01/02/2025 12:01:34 Checkout: 01/02/2025 18:11:48 Dispo Type: Admitted as IP to this [facility] EVENTS: Event Name Event Status Request Date/Time Start Date/Time Complete Date/Time Arrive Complete 01/02/2025 12:01:34 01/02/2025 12:01:34 01/02/2025 12:01:34 Document Home Meds Request 01/02/2025 12:01:34 Triage Complete 01/02/2025 12:01:34 01/02/2025 12:06:33 01/02/2025 12:06:33 Bed Assign Complete 01/02/2025 12:06:45 01/02/2025 12:06:45 01/02/2025 12:06:45 Dr Exam Complete 01/02/2025 12:06:45 01/02/2025 12:21:40 01/02/2025 12:21:40 RN Exam Complete 01/02/2025 12:06:45 01/02/2025 14:01:08 01/02/2025 14:01:08 Registration Complete 01/02/2025 12:21:40 01/02/2025 13:37:53 01/02/2025 13:37:53 Dr Exam Complete 01/02/2025 12:23:53 01/02/2025 12:23:53 01/02/2025 12:23:53 EKG Complete 01/02/2025 12:38:37 01/02/2025 13:01:24 Meds Admin Complete 01/02/2025 12:38:37 01/02/2025 13:23:41 Pending Labs Inlab 01/02/2025 12:38:37 Lab Inlab 01/02/2025 12:38:37 RT Request 01/02/2025 12:38:37 X-Ray Complete 01/02/2025 12:38:37 01/02/2025 13:14:29 01/02/2025 14:16:01 Pending Labs Cancel 01/02/2025 12:41:20 01/02/2025 14:00:24 Lab Cancel 01/02/2025 12:41:20 01/02/2025 14:00:24 Meds Admin Complete 01/02/2025 12:41:58 01/02/2025 13:23:42 Reg Complete Request 01/02/2025 13:37:53 Reg Bed Request Complete 01/02/2025 13:37:53 01/02/2025 13:37:53 01/02/2025 13:37:53 Pending Labs Complete 01/02/2025 13:59:24 01/02/2025 13:59:24 01/02/2025 14:30:39 Lab Complete 01/02/2025 13:59:24 01/02/2025 13:59:24 01/02/2025 14:30:39 Pending Labs Complete 01/02/2025 14:00:48 01/02/2025 14:00:48 01/02/2025 15:13:06 Lab Complete 01/02/2025 14:00:48 01/02/2025 14:00:48 01/02/2025 15:13:06 Wet Read Request 01/02/2025 14:16:01 US Complete 01/02/2025 14:44:39 01/02/2025 16:42:32 01/02/2025 17:20:23 Meds Admin Complete 01/02/2025 14:46:37 01/02/2025 15:01:51 Meds Admin Request 01/02/2025 15:42:15 Meds Admin Complete 01/02/2025 16:15:41 01/02/2025 16:22:50 Consult Request 01/02/2025 16:24:09 Hospitalist Consult Request 01/02/2025 16:24:09 Admit Request 01/02/2025 17:42:47 Patient Care Request 01/02/2025 17:42:47 Patient Care Request 01/02/2025 17:42:49 Patient Care Request 01/02/2025 17:42:49 Patient Care Request 01/02/2025 17:42:50 Patient Care Request 01/02/2025 17:42:50 Medicare Form Complete 01/02/2025 17:42:51 01/02/2025 17:51:56 Patient Care Request 01/02/2025 17:42:51 Patient Care Request 01/02/2025 17:42:51 ADDRESS: [facility] [place] [id number] PHYS DOC NOTES: MEDICAL INFORMATION: Prescriptions Given: Medications to Continue with No Changes Other Medications acetaminophen (acetaminophen 325 mg Tab) 2 Tablets By Mouth every 6 hours as needed Pain. Al hydroxide/Mg hydroxide/simethicone (Al hydroxide/Mg hydroxide/simethicone 200 mg-200 mg-20 mg/5 mL oral suspension) 30 Milliliter By Mouth every 6 hours as needed Indigestion. apixaban (apixaban 2.5 mg oral tablet) 1 Tablets By Mouth 2 times a day. Refills: 0. aspirin (aspirin 81 mg Chew Tab) 1 Tablets Chewed every day. atorvastatin (atorvastatin 80 mg Tab) 1 Tablets By Mouth every day. atropine-diphenoxylate (atropine-diphenoxylate 0.025 mg-2.5 mg Tab) 1 Tablets By Mouth 4 times a day as needed for loose stool. Refills: 0. bumetanide (bumetanide 1 mg Tab) 3 Tablets By Mouth 2 times a day. carvedilol (Coreg 3.125 mg Tab) 1 Tablets By Mouth 2 times a day. cholecalciferol (cholecalciferol 2000 intl units oral capsule) 1 Capsules By Mouth every day. Refills: 0. dapagliflozin (Farxiga 10 mg oral tablet) 1 Tablets By Mouth every day. daridorexant (Quviviq 25 mg oral tablet) 1 Tablets By Mouth at bedtime as needed Insomnia. diclofenac topical (diclofenac topical 1% gel) 1 Application Topical 4 times a day as needed for pain. divalproex sodium (divalproex sodium 125 mg Cap-EC) 1 Capsules By Mouth 2 times a day. divalproex sodium (divalproex sodium 500 mg Oral EC Tab) 1 Tablets By Mouth 2 times a day. erythromycin ophthalmic 1 Application Right eye every day. apply thin later to R eye each evening. ferrous sulfate (ferrous sulfate 325 mg Tab) 1 Tablets By Mouth 3 times a day. Refills: 0. fluticasone nasal (fluticasone Nasal 0.05 mg/inh Universal) 2 Sprays Nasal Inhalation every day as needed Allergy symptoms. each nostril. fluticasone-salmeterol (Advair 250 mcg-50 mcg Powder) 1 Puffs Inhalation 2 times a day. gabapentin (gabapentin 800 mg Tab) 1 Tablets By Mouth 3 ariel (more content not included)...[facility] CenterED Patient Education Noteon [id number] Patient Education NoteED Patient Education NoteNormCommunity Hospital of Gardena Medical CenterED Patient Summaryon [id number] Patient SummaryED Patient Summary [place] [address] Patient Discharge Instructions Person Information Name: MATT WATERMAN Age: 64 Years Arrival Date: 01/02/2025 12:01:34 Discharge Diagnosis: 1:Cellulitis of right leg without foot; 2:History of amputation; 3:Hypokalemia; 4:PAF (paroxysmal atrial fibrillation); 5:Chronic combined systolic and diastolic heart failure; 6:Chronic hypoxic respiratory failure; 7:Coronary artery disease; 8:COPD without exacerbation; 9:Diabetes; 10:Hypertension; 11:Hyperlipidemia; 12:ROBYN on CPAP; 13:Bipolar disorder; 14:Anxiety and depression; 15:Morbid obesity due to excess calories Primary Care Physician: SURAJ LIZ MD Provider Information Primary Provider: Mark Vela DO Advanced Appliquer:Minerva Juarez PA-C The exam and treatment you received in the Emergency Department were for an urgent problem and are not intended as complete care. It is important that you follow up with a doctor, nurse practitioner,or physician???s personal assistant for ongoing care. If your symptoms become worse or you do not improve asexpected and you are unable to reach your usual health care provider, you should return to the Emergency Department. We are available 24 hours a day. MATT WATERMAN has been given the following list of patient education materials, prescriptions and follow-up instructions: Follow-up Instructions: In the event that this physician does not participate in your insurance network, please consult with your insurance company to find a nearby participating provider. Patient Education Materials: A MESSAGE TO ALL PATIENTS REGARDING OPIOIDS PRESCRIPTION OPIOIDS: WHAT YOU NEED TO KNOW Prescription opioids can be used to help relieve wwxiofko-gx-hlkmlv pain and are often prescribed following a surgery or injury, or for certain health conditions. These medications can be an important part of the treatment but also come with serious risks. It is important to work with your healthcare provider to make sure you are getting the safest, most effective care. WHAT ARE THE RISKS AND SIDE EFFECTS OF OPIOID USE? Prescription opioids carry serious risks of addiction and overdose, especially with prolonged use. An opioid overdose, often marked by slowed breathing, can cause sudden . The use of prescription opioids can have a number of side effects as well, even when taken as directed: ??? Tolerance???meaning you might need to take more of the medication for the same pain relief ??? Physical dependence???meaning you have symptoms of withdrawal when a medication is stopped ??? Increased sensitivity to pain ??? Constipation ??? Nausea, vomiting, and dry mouth ??? Sleepiness and dizziness ??? Confusion ??? Depression ??? Low levels of testosterone that can result in lower sex drive, energy, and strength ??? Itching and sweating RISKS ARE GREATER WITH: ??? History of drug misuse, substance use disorder, or overdose ??? Mental health conditions (such as depression or anxiety) ??? Sleep apnea ??? Older age (65 years and older) ??? Avoid alcohol while taking prescription opioids. Also, unless specifically advised by your health care provider, medications to avoid include: ??? Benzodiazepines (such as Xanax or Valium) ??? Muscle relaxants (such as Soma or Flexeril) ??? Hypnotics (such as Ambien or Lunesta) ??? Other prescription opioids KNOW YOUR OPTIONS Talk to your health care provider about ways to manage your pain that don???t involve prescription opioids. Some of these options may actually work better and have fewer risks and side effects. Options may include: ??? Pain relievers such as acetaminophen, ibuprofen, and naproxen ??? Some medication that are also used for depression or seizures ??? Physical therapy and exercise ??? Cognitive behavioral therapy, a psychological, goal-directed approach, in which patients learn how to modify physical, behavioral, and emotional triggers of pain and stress. IF YOU ARE PRESCRIBED OPIOIDS FOR PAIN: ??? Never take opioids in greater amounts or more often than prescribed. ??? Follow up with your primary health care provider. o Work together to create a plan on how to manage your pain. o Talk about ways to help manage your pain that don???t involve prescription opioids. o Talk about any and all concerns and side effects. ??? Help prevent misuse and abuse o Never sell or share prescription opioids. o Never use another person???s prescription opioids. ??? Store prescription opioids in a secure place and out of reach of others (this may include visitors, children, friends, and family). ??? Safely dispose of unused prescription opioids: Find your community drug take-back program or your pharmacy mail-back program, or flush them down the toilet, following guidance fr (more content not included)...NormalMccullough-Hyde Memorial HospitalLactic Acidon 96-35-2234Clpzjv Acid Lvl1.4 mmol/LNormal0.5-2.2 [facility] HospitalComment on above:Performed By: #### [id number] #### [facility] [address] [place], [place] [address]UM & PTTon 80-14-7029BKU Coag (PPP) [Relative time]1.13 {INR} Invalid Interpretation UK HealthcareComment on above:Result Comment: INR results are specifically intended to assess patients stabilized on long-term Anticoagulation therapy suggested INR???s ???Less Intensive Anticoagulation??? 2.0 ??? 3.0 Conventional Range 3.0 ??? 4.5Performed By: #### [id number] #### [facility] [address], [place] [address]RQ25.7 second(s)High9.4-12.5FAdams County Regional Medical CenterComment on above:Result Comment: 15 days - 4 weeks 1 - 5 months 6 -11 months 1 ??? 5 years 6 ??? 10 years 11 -17 years Mean: 11.2 (9.5 ??? 12.6) Mean: 11.0 (9.7 ??? 12.8) Mean: 11.0 (9.8 ??? 13.0) Mean: 11.3 (9.9 ??? 13.4) Mean: 11.7 (10.0 ??? 14.6) Mean: 11.8 (10.0 - 14.1) Pediatric Reference ranges were obtained from a study by ronal Ceja prepared from 1437 samples obtained at 7 different centers using the same coagulation reagent and instrumentation as [facility]. Currently there are no coagulation studies available worldwide for children to 14 days, andno normal ranges.Performed By: #### [id number] #### [facility] [address], [place] [address]JIH76.7 second(s)Low25.1-36.5FAdams County Regional Medical CenterComment on above:Result Comment: Parameter 15 days - 4 weeks 1 - 5 months 6 - 11 months 1 - 5 years 6 - 10 years 11 - 17 years PTT Mean: 35.4 (27.6-45.6) Mean: 33.5 (24.8-40.7) Mean: 32.4 (25.1-40.7) Mean: 31.6 (24.0-39.2) Mean: 31.6 (26.9-38.7) Mean: 31.0 (24.6-38.4) Pediatric Reference ranges were obtained from a study by ronal Ceja prepared from 1437 samples obtained at 7 different centers using the same coagulation reagent and instrumentation as [facility]. Currently there are no coagulation studies available worldwide for children to 14 days, andno normal ranges. Heparin therapeutic range (represented by Anti-Factor Xa activity of 0.2 - 0.4 U/mL) corresponds to PTT of 56.6 - 109.0 sec.Performed By: #### [id number] #### [facility] [address], [place] [address]Vdm Rate Automatedon 71-19-3405Fwm Rate Twfseoyhp93 mm/hrHigh 0-19[facility] Memorial HospitalComment on above:Performed By: #### [id number] #### [facility] [address], [place] [address]Tmzhbdmlhx 56-26-0697Chemtqgc HS8.60 pg/mLLow15.90-38.40[facility] Memorial HospitalComment on above:Result Comment: The 95% CI (Confidence Interval) PPV (Positive Predictive Value) for myocardial infarction in females is 38 pg/mL, in males 51 pg/mL. The results should be used in conjunction with clinical conditions of myocardial infarction. (Access High Sensitivity Troponin I Instructions For Use, Frank Bidwell, December 2017)Performed By: #### [id number] #### [facility] [address], [place] [address]AN Tib/Fib Right 2 Viewon [id number] Tib/Fib Right 2 ViewExam Date/Time: 01/02/2025 14:16 EDT Reason for Exam: Leg pain Report IMPRESSION: NEGATIVE RIGHT TIBIA AND FIBULA. CLINICAL INFORMATION: Leg pain COMPARISON: None. FINDINGS: The right tibia and fibula appear normal without evidence of fracture or dislocation. Ordering Provider: Minerva Juarez FINAL REPORT Dictated: 01/02/2025 2:30 pm Reji Russell MD Signed (Electronic Signature): 01/02/2025 2:30 pm Signed by: Reji Russell MD Transcribed by: AMBROCIO Technologist: RobinMccullough-Hyde Memorial HospitaleGFRon 93-76-7356qEWP76 mL/min/1.73 e3Kyryvu>=59M[facility] Memorial HospitalComment on above:Performed By: #### [id number] #### [facility] [address] [place], [place] [address]mk 64-06-032031PfcxeoQsoftlztnx of [facility] Telephoneon 74-89-6622GfodyygozFknkzbLgwptupnsz [facility]36on 62-36-774802Ojwc're recommending that, but don't we have to be the ones to order it?NormalUnSelect Medical Specialty Hospital - [facility]on36NormalUniversity [facility]36NormalUniversity [facility] Medical CenterTelephoneon 90-53-9562Xdqvzlzyn NormalSelect Medical Specialty [facility] - [facility]36on 55-02-957653BgjpktRtwibclkhzZanesville City HospitalAlanine aminotransferase [Enzymatic activity/volume] in Serum or PlasmaOrdered By: Suraj Liz on 70-09-6274PIH [Catalytic activity/Vol]13 U/LNormal7-52Kindred Hospital DaytonComment on above: Performed By: #### BMP, LIPASE, HEPATIC #### [facility] [address] [place] [address] USAAlbumin [Mass/volume] in Serum or Plasma by Bromocresol green (BCG) dye binding methoOrdered By: Suraj Liz on 64-79-9223Azntgkv BCG dye [Mass/Vol]3.2 g/dLLow3.5-5.7FSt. Mary's Medical CenterAlkaline phosphatase [Enzymatic activity/volume] in Serum or PlasmaOrdered By: Suraj Liz on 78-48-0269WPF [Catalytic activity/Vol]68 U/ULeazho42-061QentevdnyKindred Hospital DaytonComment on above:Result Comment: PERFORMED BY: [facility] [address] [place] [address] PATHOLOGIST [employer]TRIDGE FEEDER ALEAH BOYCE M.D.Performed By: #### BMP, LIPASE, HEPATIC #### [facility] [address] [place] [address] USAAspartate aminotransferase [Enzymatic activity/volume] in Serum or PlasmaOrdered By: Suraj Liz on 87-76-8769GNH [Catalytic activity/Vol]14 U/LKpfmcn44-27DlhpkleqbKindred Hospital DaytonComment on above: Performed By: #### BMP, LIPASE, HEPATIC #### [facility] [address] [place] [address] USABasophils [#/volume] in Blood by Automated countOrdered By: Suraj Liz on 88-06-2469Yoemsynsy (Bld) [#/Vol]0.1 10*3/uLNormal0.0-0.2 [facility] Hospital DaytonComment on above:Result Comment: PERFORMED BY: [place] [address] PATHOLOGIST [employer] ALEAH BOYCE M.D.Performed By: #### BMP, LIPASE, HEPATIC #### [place] [address] USABasophils/100 leukocytes in Blood by Automated count Ordered By: Suraj Liz on 58-86-6553Kffamjdrf/100 WBC (Bld)0.9 %Normal. [facility]red Hospital DaytonComment on above:Performed By: #### BMP, LIPASE, HEPATIC #### [place] [address] USABilirubin.total [Mass/volume] in Serum or PlasmaOrdered By: Suraj Liz on 15-12-2845Vrigrwyug [Mass/Vol]0.7 mg/dLNormal0.3-1.0 [facility] Hospital DaytonComment on above:Performed By: #### BMP, LIPASE, HEPATIC #### [place] [address] USACalcium [Mass/volume] in Serum or PlasmaOrdered By: Suraj Liz on 89-64-4372Cqrhsbd [Mass/Vol]8.3 mg/dLLow8.6-10.3FSt. Mary's Medical CenterComment on above:Performed By: #### BMP, LIPASE, HEPATIC #### [place] [address] USACarbon dioxide, total [Moles/volume] in Serum or Plasma Ordered By: Suraj Liz on 10-84-0805YH9 [Moles/Vol]30.6 mmol/OQunvil98.0-31.0 [facility] DaytonComment on above:Performed By: #### BMP, LIPASE, HEPATIC #### [place] [address] USAChloride [Moles/volume] in Serum or PlasmaOrdered By: Suraj Liz on 91-59-9776Laapbvne [Moles/Vol]101 mmol/WJcfkme70-454IltoczmviKindred Hospital DaytonComment on above:Performed By: #### BMP, LIPASE, HEPATIC #### [place] [address] USAComplete Blood Count Auto Diffon 61-12-1717Mzbi Corpuscular HGB Conc32.1 g/dLLow32.5-35.6The Unc Health Physician GroupComment on above:Performed By: #### BMP, LIPASE, HEPATIC #### [place] [address] USANRBC%0.0 /100{WBC}Normal0-0.5The [facility] Comment on above:Performed By: #### BMP, LIPASE, HEPATIC #### [place] [address] USAWhite Blood Count7.8 [CFU]/mLNormal4.1-10.5The Unc Health Physician GroupComment on above:Performed By: #### BMP, LIPASE, HEPATIC #### [place] [address] USAComprehensive Metabolic Panelon 33-57-7052Yfyikog [Mass/Vol]3.2 g/dLLow3.5-5.7The Unc Health Physician GroupComment on above: Performed By: #### BMP, LIPASE, HEPATIC #### [place] [address] USAGFR/1.73 sq M.predicted MDRD (S/P/Bld) [Vol rate/Area] mL/min/{1.73_m2}NormalThe Unc Health Physician GroupComment on above:Performed By: #### BMP, LIPASE, HEPATIC #### [place] [address] USACreatinine [Mass/volume] in Serum or PlasmaOrdered By: Suraj Liz on 09-72-7042Kgfgymcnjw [Mass/Vol]0.70 mg/dLNormal0.70-1.30 [facility] Hospital DaytonComment on above:Performed By: #### BMP, LIPASE, HEPATIC #### [facility] [address] [place] [address] USAEosinophils [#/volume] in Blood by Automated countOrdered By: Suraj Liz on 48-45-8190Nhzcohzhchb (Bld) [#/Vol]0.1 10*3/uLNormal0.0-0.45 [facility] Hospital DaytonComment on above:Performed By: #### BMP, LIPASE, HEPATIC #### [place] [address] USAEosinophils/100 leukocytes in Blood by Automated count Ordered By: Suraj Liz on 26-15-7491Ikblcivjotq/100 WBC (Bld)1.3 %Normal. [facility] Hospital DaytonComment on above:Performed By: #### BMP, LIPASE, HEPATIC #### [place] [address] USAErythrocyte distribution width [Ratio] by Automated count Ordered By: Suraj Liz on 06-76-5795Vlfaempfnpk distribution width (RBC) [Ratio]21.1 %High12.0-14.8Kindred Hospital DaytonComcorewell health [facility] on above: Performed By: #### BMP, LIPASE, HEPATIC #### [facility] [address] [place] [id number] USAErythrocytes [#/volume] in Blood by Automated countOrdered By: Suraj Liz on 27-47-5041LBC (Bld) [#/Vol]4.25 10*6/uLNormal3.90-5.60 [facility] Hospital DaytonComment on above:Performed By: #### BMP, LIPASE, HEPATIC #### [place] [address] USAGlomerular filtration rate [Volume Rate/Area] in Serum, Plasma or Blood by CreatinineOrdered By: Suraj Liz on 93-88-6592Fpnvbvsfuq filtration rate [Volume Rate/Area] in Serum, Plasma or Blood by Creatinine> 60.0 mL/MinKindred Hospital DaytonGlucose (Bld) [Mass/Vol]Ordered By: Margaret Brooks on 79-40-4060Iojsqem Blood, IFW347 mg/dLNOMS HealthcareGlucose [Mass/volume] in Serum or PlasmaOrdered By: Suraj Liz on 64-38-4636Elxsaqx [Mass/Vol]136 mg/kGPfym36-805KaavqazksKindred Hospital DaytonComment on above: ADA recommended reference rangeRandom Glucose Reference Range is dependent on time and content of last meal. Glucose of more than 200 mg/dL in a nonstressed, ambulatory subject supports the diagnosisof Diabetes Mellitus.Result Comment: Random Glucose Reference Range is dependent on time and content of last meal. Glucose of more than 200 mg/dL in a nonstressed, ambulatory subject supports the diagnosis of Diabetes Mellitus. ADA recommended reference rangePerformed By: #### BMP, LIPASE, HEPATIC #### [facility] [address] [place] [address] USAHematocrit [Volume Fraction] of Blood by Automated count Ordered By: Suraj Liz on 22-68-5309Gzjgfqtdgi (Bld) [Volume fraction]33.2 % Low38.8-50.0[facility] Hospital DaytonComment on above:Performed By: #### BMP, LIPASE, HEPATIC #### [facility] [address] [place] [id number] USAHemoglobin [Mass/volume] in BloodOrdered By: Suraj Liz on 12-52-4325Uyajutwmjy (Bld) [Mass/Vol]10.7 g/dLLow13.0-17.0[facility] Hospital DaytonComment on above:Performed By: #### BMP, LIPASE, HEPATIC #### [facility] [address] [place] [id number] USALaboratory - Hematology and Cell countson 79-56-1659QrZ7h (Bld) [Mass fraction]5.8 %NOMS HealthcareLeukocytes [#/volume] corrected for nucleated erythrocytes in Blood by Automated counOrdered By: Suraj Liz on 36-83-2814LFL corrected for nucl RBC Auto (Bld) [#/Vol]7.8 10*3/uL4.1-10.5 [facility] Hospital DaytonLeukocytes [#/volume] in Blood by Automated countOrdered By: Suraj Liz on 27-36-9761NKU (Bld) [#/Vol]7.8 10*3/uLNormal 4.1-10.5FSt. Mary's Medical CenterComment on above:Performed By: #### BMP, LIPASE, HEPATIC #### [place] [address] USALipase [Enzymatic activity/volume] in Serum or Plasma Ordered By: Suraj Liz on 31-82-8724Glqjbo [Catalytic activity/Vol]14.0 U/L Euwrdc23.0-82.0[facility] Hospital DaytonComment on above:Result Comment: PERFORMED BY: [place] [address] PATHOLOGIST [employer] ALEAH BOYCE M.D.Performed By: #### LIPASE #### [place] [address] USALymphocytes [#/volume] in Blood by Automated countOrdered By: Suraj Liz on 16-65-0752Qdmxcxwxfng (Bld) [#/Vol]1.7 10*3/uLNormal1.00-4.8 [facility] DaytonComment on above:Performed By: #### BMP, LIPASE, HEPATIC #### [place] [id number] USALymphocytes/100 leukocytes in Blood by Automated count Ordered By: Suraj Liz on 67-19-7269Mvvxhuauxho/100 WBC (Bld)21.3 %Normal. Kindred Hospital DaytonComment on above:Performed By: #### BMP, LIPASE, HEPATIC #### [place] [id number] USAMCH [Entitic mass] by Automated countOrdered By: Suraj Liz on 88-24-4301LAD (RBC) [Entitic mass]25.1 pgLow27.5-35.2FSt. Mary's Medical CenterComment on above:Performed By: #### BMP, LIPASE, HEPATIC #### [facility] [address] [id number] [facility] Auto (RBC) [Mass/Vol]Ordered By: Suraj Liz on 38-67-9743XHEL (RBC) [Mass/Vol]32.1 g/dLLow32.5-35.6FSt. Mary's Medical CenterMCV [Entitic volume] by Automated countOrdered By: Suraj Liz on 48-12-1523IYI (RBC) [Entitic vol]78.0 fLLow83.5-101Kindred Hospital DaytonComment on above:Performed By: #### BMP, LIPASE, HEPATIC #### [facility] [address] [place] [address] USAMonocytes [#/volume] in Blood by Automated countOrdered By: Suraj Liz on 36-28-3220Eprixbwmb (Bld) [#/Vol]0.5 10*3/uLNormal0.0-0.8 [facility] DaytonComment on above:Performed By: #### BMP, LIPASE, HEPATIC #### [facility] [address] [id number] USAMonocytes/100 leukocytes in Blood by Automated count Ordered By: Suraj Liz on 90-85-6524Hbkxfsbrd/100 WBC (Bld)6.6 %Normal. [facility] Hospital DaytonComment on above:Performed By: #### BMP, LIPASE, HEPATIC #### [facility] [address] [id number] USANeutrophils [#/volume] in Blood by Automated countOrdered By: Suraj Liz on 74-70-2328Fposkxgvmwh (Bld) [#/Vol]5.4 10*3/uLNormal1.8-7.7 [facility] Hospital DaytonComment on above:Performed By: #### BMP, LIPASE, HEPATIC #### [facility] [address] [phone] USANeutrophils/100 leukocytes in Blood by Automated count Ordered By: Suraj Liz on 04-01-5512Yylslrgajbx/100 WBC (Bld)69.9 %Normal. [facility]red Hospital DaytonComment on above:Performed By: #### BMP, LIPASE, HEPATIC #### [facility] [address] [place] [address] USANo Panel InformationOrdered By: Margarte Brooks on 32-25-4497TXBR HealthcareNo Panel InformationOrdered By: Suraj Liz on 57-99-9277Btwofpcy Creatinine Clearance (ChemN/AFSt. Mary's Medical CenterNucleated erythrocytes [Presence] in Blood by Automated countOrdered By: Suraj Liz on 76-74-4981Jyrddfrsn RBC Auto Ql (Bld)0.0 /100{WBC}0-0.5FSt. Mary's Medical CenterPlatelet mean volume [Entitic volume] in Blood by Automated countOrdered By: Suraj Liz on 78-82-8647Zejsthbr mean volume (Bld) [Entitic vol]8.4 fLNormal6.6-10.1FSt. Mary's Medical CenterComment on above:Performed By: #### BMP, LIPASE, HEPATIC #### [facility] [address] [place] [address] USAPlatelets [#/volume] in Blood by Automated countOrdered By: Suraj Liz on 37-87-1775Keipxvcef (Bld) [#/Vol]321 10*3/xVEuytnb980-182 [facility] Hospital DaytonComment on above:Performed By: #### BMP, LIPASE, HEPATIC #### [facility] [address] [place] [address] USAPotassium [Moles/volume] in Serum or PlasmaOrdered By: Suraj Liz on 33-41-0881Ztytlhrpt [Moles/Vol]3.7 mmol/LNormal3.5-5.1FSt. Mary's Medical CenterComment on above:Performed By: #### BMP, LIPASE, HEPATIC #### [facility] [address] [place] [address] USAProtein [Mass/volume] in Serum or PlasmaOrdered By: Suraj Liz on 67-30-9353Uyapqkb [Mass/Vol]6.1 g/dLLow6.4-8.9[facility]red Hospital DaytonComment on above:Performed By: #### BMP, LIPASE, HEPATIC #### [facility] [address] [place] [address] USASerum globulin measurement by calculation (mass/volume) Ordered By: Suraj Liz on 80-81-6158Krdbxguw (S) [Mass/Vol]2.9 g/dLNormal [facility] Hospital DaytonComment on above:Performed By: #### BMP, LIPASE, HEPATIC #### [facility] [address] [place] [address] USASerum or plasma albumin/globulin mass ratioOrdered By: Suraj Liz on 07-19-9502Vyridou/Globulin [Mass ratio]1.1 {ratio}Normal [facility] Hospital DaytonComment on above:Performed By: #### BMP, LIPASE, HEPATIC #### [place] [address] USASerum or plasma anion gap determinationOrdered By: Suraj Liz on 57-34-4411Vtkpg gap [Moles/Vol]11.1 mmol/LNormal6.0-15.0[facility]red Hospital DaytonComment on above:Performed By: #### BMP, LIPASE, HEPATIC #### [facility] [address] [place] [address] USASodium [Moles/volume] in Serum or PlasmaOrdered By: Suraj Liz on 40-62-6968Gjtrnu [Moles/Vol]139 mmol/JEszwzk493-610FrsyvvhkdKindred Hospital DaytonComment on above:Performed By: #### BMP, LIPASE, HEPATIC #### [facility] [address] [place] [address] USAUrea nitrogen [Mass/volume] in Serum or PlasmaOrdered By: Suraj Liz on 25-71-7384Iodh nitrogen [Mass/Vol]21 mg/dLNormal7-25Kindred Hospital DaytonComment on above:Performed By: #### BMP, LIPASE, HEPATIC #### [place] [id number] OSL48au 18-78-695925Nl for patient and [facility] HospitalOrders Onlyon 82-18-5332Jnznhf Only [facility] HospitalOrders Onlyon 47-79-6077Dwlhzx Only [facility] HospitalFollow-Upon 86-58-0297Ukivlx-UpVan Wert County Hospital36on 01-38-915389MjiapfRwqsvwrekr of [facility] Hllrre60lx 98-72-926450Nfkgdlz called to make you aware that he doesn't think Bumex infusions are helping him. He's still taking oral Bumex and metolazone 2.5mg daily. Said he's not able to get rid of the weight and he doesn't know why. Any suggestions? [facility]36[facility] called to request the infusion order from [facility] be updated to include the 100 mg IV Rituxin day 1 - 15. Then every 6 months. Spoke with Danita in office with printed most recent infusion order faxed.Normal [facility]36on 35-86-377400NvntijWalyxxpnmg of [facility] Azrmct40aj 89-44-091700Uw called to ask if you have seen his lab results, and your thoughts. Please AdviseNormalUniversity of Saint David'S [facility] Medical CenterOrders Onlyon 75-86-2347Heiqez OnlyNormalUniversCincinnati Children's Hospital Medical CenterFollow-Upon 96-00-6341Ocpvss-Up [facility]29on 63-77-178969Gkheqizo by: RUDY BARR on: 11/30/2024 03:36 PM Modules accepted: Level of ServiceNormalUniversCincinnati Children's Hospital Medical Center Follow-Upon 98-74-5646Oczrtx-UpNormalUniversity [facility] Medical CenterOrders Onlyon 98-70-0768Tuzypm OnlyNormalUniversity [facility]36on 78-39-736306QlqvtoIthzdrtzgc [facility] Medical CenterTelephoneon 11-24-2024 TelephoneNormalUniversity [facility]30on 98-05-304050Pvqijz [facility]30NormalUniversCincinnati Children's Hospital Medical Center BASIC METABOLIC PANELon 19-93-1575Jncgg gap [Moles/Vol]13 mmol/LNormal7-20 [facility] SouthComment on above:Performed By: #### [id number] ####[facility] ([facility] [place] [address]Becdfiq [Mass/Vol]9.3 mg/dLNormal8.6-10.3UnSelect Medical Specialty Hospital - CantonComment on above:Performed By: #### [id number] ####[facility] ([facility] [place], [place] [address]Irexndvw [Moles/Vol]91 mmol/ZCtu77-463YlcyterkmdSelect Medical Specialty Hospital - CantonComment on above:Performed By: #### [id number] ####[facility] ([facility] [place], [place] [address]JP3 [Moles/Vol]34 mmol/QKjjf93-94 [facility] SouthComment on above:Performed By: #### [id number] ####[facility] ([facility] [place], [place] [address]Aaoxdxvnnj [Mass/Vol]1.05 mg/dLNormal0.70-1.30UnSelect Medical Specialty Hospital - CantonComment on above:Performed By: #### [id number] ####[facility] ([facility] [place], [place] [address]RKGNHQFZMA FILTRATION RATE ML/MIN/1.73 SQ M.URDNSZWND70.8 mL/min/1.73m*2Normal>60.0UnSelect Medical Specialty Hospital - CantonComment on above: Result Comment: The [facility]???s estimated glomerular filtration rate (eGFR) will no [...] potential consequences that do not disproportionately affect anyone group of individuals.Performed By: #### [id number] ####[facility] ([facility] [place], [place] [address]Zphwsrl [Mass/Vol]124 mg/xBYqae32-428LcpvpegsyvSelect Medical Specialty Hospital - CantonComment on above:Performed By: #### [id number] ####[facility] ([facility] [place], [place] [address]Vcauazaqn [Moles/Vol]3.3 mmol/L Low3.5-5.1UnSelect Medical Specialty Hospital - CantonComment on above:Performed By: #### [id number] ####[facility] ([facility] [place], [place] [address]Siynch [Moles/Vol]135 mmol/JUrj469-525UiaccyropkSelect Medical Specialty Hospital - CantonComment on above:Performed By: #### [id number] ####[facility] ([facility] [place], [place] [address]Kdzt nitrogen [Mass/Vol]35 mg/dLHigh7-25UnSelect Medical Specialty Hospital - CantonComment on above:Performed By: #### [id number] ####[facility] ([facility] [place], [place] [address]KMBR NITROGEN/CREATININE (MASS RATIO) IN SER/PLAS33.3NormalUniversCincinnati Children's Hospital Medical CenterComment on above: Performed By: #### [id number] ####[facility] ([facility] [place], [place] [address]Hnkek gap [Moles/Vol]14 mmol/LNormal7-20UnSelect Medical Specialty Hospital - CantonComment on above:Performed By: #### [id number] ####[facility] ([facility] [place], [place] [address]Nwyompl [Mass/Vol]9.1 mg/dLNormal 8.6-10.3UnSelect Medical Specialty Hospital - CantonComment on above:Performed By: #### [id number] ####[facility] ([facility] [place], [place] [address]Ytbnlauv [Moles/Vol]90 mmol/LCmn59-739JwdixclfiySelect Medical Specialty Hospital - CantonComment on above:Performed By: #### [id number] ####[facility] ([facility])[address] [place] [address]GA1 [Moles/Vol]35 mmol/YKvuz84-59LbtoypfqyeSelect Medical Specialty Hospital - CantonComment on above:Performed By: #### [id number] ####[facility] ([facility] [place] [address]Ccudlxcbrb [Mass/Vol]1.13 mg/dLNormal 0.70-1.30UnSelect Medical Specialty Hospital - CantonComment on above:Performed By: #### [id number] ####[facility] ([facility] [place] [address]RBDUFATPFB FILTRATION RATE ML/MIN/1.73 SQ M.QJHUZNZZF82.0 mL/min/1.73m*2Normal>60.0 [facility] SouthComment on above:Result Comment: The [facility]???s estimated glomerular filtration rate (eG FR) will no longer include consideration of race [...] potential consequences that do not disproportionately affect anyone group of individuals. Performed By: #### [id number] ####[facility] ([facility] [place] [address]Ajckvur [Mass/Vol]101 mg/nHTqct35-572FnycnpjfanSelect Medical Specialty Hospital - CantonComment on above:Performed By: #### [id number] ####[facility] ([facility] [place] [address]Hvzdantel [Moles/Vol]3.0 mmol/LLow 3.5-5.1UnSelect Medical Specialty Hospital - CantonComment on above:Performed By: #### [id number] ####[facility] ([facility])[address] [place] [address]Ndkapu [Moles/Vol]136 mmol/ZAulhdp542-960CgvgniicyrSelect Medical Specialty Hospital - CantonComment on above:Performed By: #### [id number] ####[facility] ([facility])[address] [place], [place] [address]Eagy nitrogen [Mass/Vol]35 mg/dLHigh7-25UnSelect Medical Specialty Hospital - CantonComment on above:Performed By: #### [id number] ####[facility] ([facility])[address] [place], [place] [address]IZKU NITROGEN/CREATININE (MASS RATIO) IN SER/PLAS31.0NormalUniversCincinnati Children's Hospital Medical CenterComment on above: Performed By: #### [id number] ####[facility] ([facility] [place], [place] [address]FFZ WITH AUTO DIFFERENTIALon 53-63-6329Alxfsnlxo (Bld) [#/Vol]0.06 10*3/uLNormal0.00-0.20UnSelect Medical Specialty Hospital - CantonComment on above: Performed By: #### [id number] ####[facility] ([facility] [place], [place] [address]Aqwhcxipq/100 WBC (Bld)0.9 %Normal0.0-1.0UnSelect Medical Specialty Hospital - CantonComment on above:Performed By: #### [id number] ####[facility] ([facility] [place], [place] [address]Ojqrylodtui (Bld) [#/Vol]0.14 10*3/uL Normal0.00-0.50UnSelect Medical Specialty Hospital - CantonComment on above:Performed By: #### [id number] ####[facility] ([facility] [facility] [place] [address] Eosinophils/100 WBC (Bld)2.2 %Normal0.0-6.0UnSelect Medical Specialty Hospital - [facility]on Comment on above:Performed By: #### [id number] ####[facility] ([facility])[address] [place], [place] [address]Xjwtstegkju distribution width (RBC) [Ratio]18.6 % High11.5-15.0UnSelect Medical Specialty Hospital - CantonComment on above:Performed By: #### [id number] ####[facility] ([facility])[address] [place] [address] ERYTHROCYTE MEAN CORPUSCULAR HEMOGLOBIN CONCENTRATION (G/DL) BY RWIGKFQWJ04.1 g/dLLow32.0-35.0UnSelect Medical Specialty Hospital - CantonComment on above:Performed By: #### [id number] ####[facility] ([facility])[address] [place], [place] [address]Olctzxqrjf (Bld) [Volume fraction]35.5 %Low39.0-50.0UnSelect Medical Specialty Hospital - CantonComment on above:Performed By: #### [id number] ####[facility] ([facility] [place], [place] [address]Bqxodfgjid (Bld) [Mass/Vol]10.7 g/dL Low13.0-17.0UnSelect Medical Specialty Hospital - CantonComment on above:Performed By: #### [id number] ####[facility] ([facility])[address] [place] [address] Immature granulocytes (Bld) [#/Vol]0.04 10*3/uLNormal0.00-0.20UnSelect Medical Specialty Hospital - CantonComment on above:Performed By: #### [id number] ####[facility] ([facility])[address] [place], [place] [address]Zgkwllcx granulocytes/100 WBC (Bld)0.6 %Normal0.0-1.0UnSelect Medical Specialty Hospital - CantonComment on above: Performed By: #### [id number] ####[facility] ([facility])[address] [place], [place] [address]Whcneezjqnm (Bld) [#/Vol]1.86 10*3/uLNormal1.20-4.00 [facility] SouthComment on above:Performed By: #### [id number] ####[facility] ([facility])[address] [place], [place] [address]Ngomniomzgh/100 WBC (Bld)29.3 %Hitgme90.0-45.0UnSelect Medical Specialty Hospital - CantonComment on above:Performed By: #### [id number] ####[facility] ([facility] [place], [place] [address]NLQ (RBC) [Entitic mass]24.2 pgLow27.0-33.0UnSelect Medical Specialty Hospital - CantonComment on above:Performed By: #### [id number] ####[facility] ([facility] [place], [place] [address]OMT (RBC) [Entitic vol] 80.3 fLLow82.0-98.0UnSelect Medical Specialty Hospital - CantonComment on above:Performed By: #### [id number] ####[facility] ([facility] [place], [place] [address]Dacemddin (Bld) [#/Vol]0.39 10*3/uLNormal0.10-1.00UnSelect Medical Specialty Hospital - CantonComment on above:Performed By: #### [id number] ####[facility] ([facility] [place], [place] [address]Ftehjyvpa/100 WBC (Bld)6.2 %Normal 5.0-12.0UnSelect Medical Specialty Hospital - CantonComment on above:Performed By: #### [id number] ####[facility] ([facility] [place] [address] Neutrophils (Bld) [#/Vol]3.85 10*3/uLNormal1.60-7.60UnSelect Medical Specialty Hospital - CantonComment on above:Performed By: #### [id number] ####[facility] ([facility] [facility] [place] [facility], [place] [address]Ebvrnbkyaii/100 WBC (Bld)60.8 %Normal 40.0-72.0UnSelect Medical Specialty Hospital - CantonComment on above:Performed By: #### [id number] ####[facility] ([facility] [place], [place] [address]MHFQ (PER 100 WBCS) BY AUTOMATED COUNT0.0 %Gtuehz1TjryxipbatSelect Medical Specialty Hospital - [facility]on Comment on above:Performed By: #### [id number] ####[facility] ([facility] [place] [address]MUSVIDCZQ (10*3/UL) IN BLOOD AUTOMATED FLOBU429 10*3/sBKcnn944-161SynfqhpbbrSelect Medical Specialty Hospital - CantonComment on above:Performed By: #### [id number] ####[facility] ([facility] [facility] [place] [place] [address]FVV (Bld) [#/Vol]4.42 10*6/uLNormal4.20-5.70UnSelect Medical Specialty Hospital - CantonComment on above:Performed By: #### [id number] ####[facility] ([facility] [place] [address]CNI (Bld) [#/Vol]6.34 10*3/uLNormal 4.00-10.60UnSelect Medical Specialty Hospital - CantonComment on above:Performed By: #### [id number] ####[facility] ([facility] [place] [address]NBlj 85-46-2354NFNwmuqhByhtoxshzx of [place] Medical CenterMAGNESIUMon 11-23-2024 Magnesium [Mass/Vol]2.0 mg/dLNormal1.9-2.7UnSelect [facility] Special[facility] Comment on above:Performed By: #### [id number] ####[facility] ([facility] [facility] H[facility]PITALMalissaMAG[place], [place] [address]SAQLWLFIym 18-39-8218MIERTZDQEIK reviewed with patient. All questions answered. Further questions denied. Patient received home meds from pharmacy. Wheeled down to main entrance and discharged home. Accompanied by nurse and spouse.NormalUnSelect Medical Specialty Hospital - CantonPOCT GLUCOSE METER UNSOLICITED RESULTSon 43-28-2028Tahzrzb [Mass/Vol]110 mg/cJYhst82-975JykzvakhveSelect Medical Specialty Hospital - CantonComment on above:Order Comment: Waived Testing in the ED is performed under the ED CLIA certificate #[id number].Result Comment: ilqvecv4Rleqanrfm By: #### [id number] ####[facility] ([facility] [place] [address]Xaygdor [Mass/Vol]138 mg/eXNjgf21-907XwadzsxrudSelect Medical Specialty Hospital - CantonComment on above:Order Comment: Waived Testing in the ED is performed under the ED CLIA certificate #[id number].Result Comment: vowxdif7Cqdnsvtgn By: #### [id number] ####[facility] ([facility] [place], [place] [address]Hypdkgk [Mass/Vol]123 mg/cKDkqo41-928GtbufsqsdlSelect Medical Specialty Hospital - CantonComment on above:Order Comment: Waived Testing in the ED is performed under the ED CLIA certificate #[id number].Result Comment: jlaijty3Pqzzgwpmp By: #### [id number] ####[facility] ([facility] [place], [place] [address]Kacbwcca 70-74-5274AwmqwoAseytzJtifgrrwiq of [place] Medical CenterTSH3 REFLEX TO FT4on 28-71-8907WAWVHVNTHOO (MIU/L) IN SER/PLAS BY DETECTION LIMIT <= 0.05 MIU/L1.16 mIU/LNormal0.34-5.60UnSelect Medical Specialty Hospital - CantonComment on above: Performed By: #### [id number] ####[facility] ([facility] [facility]OSPITALMalissaMAG[place]OL[place], [place] [address]ZPDYBKV B12on 46-16-0615Gtnfovvmp (Vitamin B12) [Mass/Vol]402 pg/iAEjmtdj915-106KpvcmxfilvSelect Medical Specialty Hospital - CantonComment on above:Result Comment: REFERENCE RANGES:180-914 pg/mL Uzqolu526-244 pg/mL Indeterminate<145 pg/mL DeficientPerformed By: #### [id number] ####[facility] ([facility] [place] [address]jz 54-50-372334WtsllwLihiowpjga of [facility] [facility] Bxvtqs06Sef patient is Moderately Stable - Low risk of patient condition declining or worsening The patient's goals for the shift include rest, comfort The clinical goals for the shift include vss, safetyNormalUniversity of Du Medical CenterAPTBanner [facility] Hospital 81-28-9950BIHMUGPGL PARTIAL THROMBOPLASTIN TIME IN PPP BY COAGULATION ASSAY76.3 PbsvtbzYmnr36.0-35.0UnSelect Medical Specialty Hospital - [facility] Comment on above:Result Comment: Clinical significance of the APTT is questionable in the presence of heparin.Performed By: #### [id number] ####[facility] ([facility] [place] [address]PJRXL METABOLIC PANELon 08-22-2806Bowgx gap [Moles/Vol]11 mmol/LNormal7-20UnSelect Medical Specialty Hospital - CantonComment on above:Performed By: #### [id number] ####[facility] ([facility] [place] [address]Zltfqxj [Mass/Vol]9.0 mg/dLNormal 8.6-10.3UnSelect Medical Specialty Hospital - CantonComment on above:Performed By: #### [id number] ####[facility] ([facility] [place] [address]Nedxuotb [Moles/Vol]95 mmol/ECwz88-286MunfgefvlzSelect Medical Specialty Hospital - CantonComment on above:Performed By: #### [id number] ####[facility] ([facility] [place] [address]CK0 [Moles/Vol]34 mmol/VGebz27-67PbieumlionSelect Medical Specialty Hospital - CantonComment on above:Performed By: #### [id number] ####[facility] ([facility] [place], [place] [address]Yiwjsnlxrn [Mass/Vol]0.97 mg/dLNormal 0.70-1.30UnSelect Medical Specialty Hospital - CantonComment on above:Performed By: #### [id number] ####[facility] ([facility] [place], [place] [address]QTAWAQDSCV FILTRATION RATE ML/MIN/1.73 SQ M.RPULHREJS44.7 mL/min/1.73m*2Normal>60.0 [facility] SouthComment on above:Result Comment: The [facility]???s estimated glomerular filtration rate (eG FR) will no longer include consideration of race [...] potential consequences that do not disproportionately affect anyone group of individuals. Performed By: #### [id number] ####[facility] ([facility] [place], [place] [address]Uydshpr [Mass/Vol]104 mg/eOBkot86-819MnjmdfannnSelect Medical Specialty Hospital - CantonComment on above:Performed By: #### [id number] ####[facility] ([facility] [place], [place] [address]Aqlkxbujm [Moles/Vol]4.0 mmol/LNormal 3.5-5.1UnSelect Medical Specialty Hospital - CantonComment on above:Performed By: #### [id number] ####[facility] ([facility], [place] [address]Cobpfm [Moles/Vol]136 mmol/ONqzior908-832GmzmzsvatqSelect Medical Specialty Hospital - CantonComment on above:Performed By: #### [id number] ####[facility] ([facility], [place] [address]Xjgq nitrogen [Mass/Vol]29 mg/dLHigh7-25UnSelect Medical Specialty Hospital - CantonComment on above:Performed By: #### [id number] ####[facility] ([facility], [place] [address]CNXP NITROGEN/CREATININE (MASS RATIO) IN SER/PLAS29.9NormalUniZanesville City HospitalComcorewell health [facility] on above: Performed By: #### [id number] ####[facility] ([facility], [place] [address]AZB WITH AUTO DIFFERENTIALon [id number] (Bld) [#/Vol]0.08 10*3/uLNormal0.00-0.20UnSelect Medical Specialty Hospital - CantonComment on above: Performed By: #### [id number] ####[facility] ([facility] [place], [place] [address]Mrqfvtddm/100 WBC (Bld)1.2 %High0.0-1.0UnSelect Medical Specialty Hospital - CantonComment on above:Performed By: #### [id number] ####[facility] ([facility] [place], [place] [address]Cyfopdxqzpf (Bld) [#/Vol]0.16 10*3/uL Normal0.00-0.50UnSelect Medical Specialty Hospital - CantonComment on above:Performed By: #### [id number] ####[facility] ([facility] [place], [place] [address] Eosinophils/100 WBC (Bld)2.4 %Normal0.0-6.0Un[facility] Comment on above:Performed By: #### [id number] ####[facility] ([facility] [place], [place] [address]Fmanvnrjghs distribution width (RBC) [Ratio]18.9 % High11.5-15.0UnSelect [facility] Hospital - CantonComment on above:Performed By: #### [id number] ####[facility] ([facility] [place] [address] ERYTHROCYTE MEAN CORPUSCULAR HEMOGLOBIN CONCENTRATION (G/DL) BY HRUAXIBVF67.5 g/dLLow32.0-35.0Un[facility] Hospital - CantonComment on above:Performed By: #### [id number] ####[facility] ([facility] [place], [place] [address]Kdkuspbafk (Bld) [Volume fraction]31.7 %Low39.0-50.0Un[facility] Hospital - CantonComment on above:Performed By: #### [id number] ####[facility] ([facility])[address] [place], [place] [address]Tyahaaxsxp (Bld) [Mass/Vol]10.0 g/dL Low13.0-17.0Un[facility] - CantonComment on above:Performed By: #### [id number] ####[facility] ([facility] [place] [address] Immature granulocytes (Bld) [#/Vol]0.07 10*3/uLNormal0.00-0.20Un[facility] Hospital - CantonComment on above:Performed By: #### [id number] ####[facility] ([facility] [place], [place] [address]Tsyglwxa granulocytes/100 WBC (Bld)1.0 %Normal0.0-1.0Un[facility] Hospital - CantonComment on above: Performed By: #### [id number] ####[facility] ([facility] [place], [place] [address]Vmimjuqajep (Bld) [#/Vol]1.86 10*3/uLNormal1.20-4.00 [facility] SouthComment on above:Performed By: #### [id number] ####[facility] ([facility] [facility]PITALMalissaMAGN[place], [place] [address]Xrthinskowg/100 WBC (Bld)27.4 %Vwsmwk61.0-45.0Un[facility] Hospital - CantonComment on above:Performed By: #### [id number] ####[facility] ([facility] [place], [place] [address]MPJ (RBC) [Entitic mass]25.1 pgLow27.0-33.0Un[facility] Hospital - CantonComment on above:Performed By: #### [id number] ####[facility] ([facility])[address] [facility]OSPITALMalissa[place], [place] [address]MXZ (RBC) [Entitic vol] 79.6 fLLow82.0-98.0Un[facility] Hospital - CantonComment on above:Performed By: #### [id number] ####[facility] ([facility])[address] [place], [place] [address]Wesnqtpks (Bld) [#/Vol]0.25 10*3/uLNormal0.10-1.00Un[facility] Hospital - CantonComment on above:Performed By: #### [id number] ####[facility] ([facility] [place] [address]Ksjveqbbn/100 WBC (Bld)3.7 %Low 5.0-12.0Un[facility] Hospital - CantonComment on above:Performed By: #### [id number] ####[facility] ([facility] [place] [address] Neutrophils (Bld) [#/Vol]4.37 10*3/uLNormal1.60-7.60Un[facility] Hospital - CantonComment on above:Performed By: #### [id number] ####[facility] ([facility] [place] [address]Doxbzxmfolm/100 WBC (Bld)64.3 %Normal 40.0-72.0Un[facility] Hospital - CantonComment on above:Performed By: #### [id number] ####[facility] ([facility] [place] [address]RWOH (PER 100 WBCS) BY AUTOMATED COUNT0.0 %Nmgytk3CqnbveveodSelect Medical Specialty Hospital - [place]on Comment on above:Performed By: #### [id number] ####[facility] ([facility] [place], [place] [address]FCIHFSAWA (10*3/UL) IN BLOOD AUTOMATED [id number] 10*3/iXBhnbip021-371UecvpnowuvSelect Medical Specialty Hospital - CantonComment on above: Performed By: #### [id number] ####[facility] ([facility] [place], [place] [address]NHX (Bld) [#/Vol]3.98 10*6/uLLow4.20-5.70UnSelect [facility] Hospital - CantonComment on above:Performed By: #### [id number] ####[facility] ([facility] [place], [place] [address]NXK (Bld) [#/Vol]6.79 10*3/uLNormal 4.00-10.60Un[facility] Hospital - CantonComment on above:Performed By: #### [id number] ####[facility] ([facility] [place], [place] [address]XXCGVAH on 35-76-1142RONONNFVposobYvrquzdubs of [facility] Medical CenterCT ABDOMEN PELVIS WO IV CONTRASTon 50-27-8444GO ABDOMEN PELVIS WO IV CONTRASTInvalid Interpretation CodeUnSelect Medical Specialty Hospital - CantonMAGNESIUMon 11-22-2024 Magnesium [Mass/Vol]2.1 mg/dLNormal1.9-2.7[facility] Comment on above:Performed By: #### [id number] ####[facility] ([facility] [place], [place] [address]FRZN GLUCOSE METER UNSOLICITED RESULTSon 11-22-2024 Glucose [Mass/Vol]200 mg/cOZswc26-285OwykciibfoSelect Medical Specialty Hospital - CantonComment on above:Order Comment: Waived Testing in the ED is performed under the ED CLIA certificate #[id number].Result Comment: [id number] By: #### [id number] ####[facility] ([facility] [place], [place] [address]Ajnkryt [Mass/Vol]202 mg/bYUggz72-007HdvyzltejkSelect Medical Specialty Hospital - CantonComment on above:Order Comment: Waived Testing in the ED is performed under the ED CLIA certificate #[id number].Result Comment: [email or web address] By: #### [id number] ####[facility] ([facility] [place], [place] [address]Zoiszqq [Mass/Vol]180 mg/xIOfwc67-566YpeejugrtiSelect Medical Specialty Hospital - CantonComment on above:Order Comment: Waived Testing in the ED is performed under the ED CLIA certificate #[id number].Result Comment: clarcomPerformed By: #### [id number] ####[facility] ([facility])[address] [place], [place] [address]Ujczcup [Mass/Vol]97 mg/uKAwvwdm35-102YebhdyddsaSelect Medical Specialty Hospital - CantonComment on above:Order Comment: Waived Testing in the ED is performed under the ED CLIA certificate #[id number].Result Comment: [id number] By: #### [id number] ####[facility] ([facility])[address] [facility] HOSPITALMalissaMAG[place], [place] [address]Qdfktgq [Mass/Vol]180 mg/oYEwyq91-640HsgkixjigxSelect Medical Specialty Hospital - CantonComment on above:Order Comment: Waived Testing in the ED is performed under the ED CLIA certificate #[id number].Result Comment: clarcomPerformed By: #### [id number] ####[facility] ([facility] [facility]ITALMal[place] [address]185cj 11-21-2024 30The patient is Moderately Stable - Low risk of patient condition declining or worsening The patient's goals for the shift include rest, comfort The clinical goals for the shift include vss, safetyNormalUniversity of Saint David'S [facility] Medical CenterXjkzte43QyjtpcPgqgpikhsv of [facility] Medical CenterEbajyh45IpbbqxUuzlycdcae of [facility] CenterJgrxlc67ElcvhoHkabblpfbq [facility] CenterANESon 26-38-3772SUGHJnjlyqDkjxvgnurb [facility] Medical CenterAPTTon 11-21-2024 ACTIVATED PARTIAL THROMBOPLASTIN TIME IN PPP BY COAGULATION ASSAY29.9 Seconds Kqjwis39.0-35.0UnSelect [facility]ty Hospital - CantonComment on above:Result Comment: Clinical significance of the APTT is questionable in the presence of heparin.Performed By: #### [id number] ####[facility] ([facility] [place], [place] [address]ROZAXGILY PARTIAL THROMBOPLASTIN TIME IN PPP BY COAGULATION ASSAY92.6 EinuxcfDkmj30.0-35.0Un[facility] Hospital - CantonComment on above:Result Comment: Clinical significance of the APTT is questionable in the presence of heparin.Performed By: #### [id number] ####[facility] ([facility])[address] [place], [place] [address]FESAL METABOLIC PANELon 62-92-6480Cctsq gap [Moles/Vol]11 mmol/LNormal7-20UnSelect [facility]ty Hospital - CantonComment on above:Performed By: #### [id number] ####[facility] ([facility] [place], [place] [address]Wizpxdu [Mass/Vol]8.8 mg/dLNormal8.6-10.3UnSelect Medical Specialty Hospital - CantonComment on above:Performed By: #### [id number] ####[facility] ([facility] [place], [place] [address]Fvkbsqme [Moles/Vol]99 mmol/LNormal 98-107UnSelect Medical Specialty Hospital - CantonComment on above:Performed By: #### [id number] ####[facility] ([facility] [place], [place] [address]FD1 [Moles/Vol]31 mmol/UViybnw14-21VdtxmgrnucSelect Medical Specialty Hospital - CantonComment on above:Performed By: #### [id number] ####[facility] ([facility] [place], [place] [address]Dxkuewbhzk [Mass/Vol]0.87 mg/dLNormal0.70-1.30UnSelect [facility] Special[facility] Hospital - CantonComment on above:Performed By: #### [id number] ####[facility] ([facility] [place], [place] [address]EWEYULDUOM FILTRATION RATE ML/MIN/1.73 SQ M.BIRBPEWMT75.0 mL/min/1.73m*2Normal>60.0Un[facility] Specialty Hospital - CantonComment on above:Result Comment: The [facility]???s estimated glomerular filtration rate (eGFR) will no [...] potential consequences that do not disproportionately affect anyone group of individuals.Performed By: #### [id number] ####[facility] ([facility] [place], [place] [address]Splxqsl [Mass/Vol]100 mg/dJNosjom00-208MjgrymbfukSelect Medical Specialty Hospital - CantonComment on above:Performed By: #### [id number] ####[facility] ([facility] [place], [place] [address]Giyemcnym [Moles/Vol]3.3 mmol/LLow3.5-5.1UnSelect Medical Specialty Hospital - CantonComment on above:Performed By: #### [id number] ####[facility] ([facility] [place], [place] [address]Jaaqsj [Moles/Vol]138 mmol/LNormal 136-145UnSelect Medical Specialty Hospital - CantonComment on above:Performed By: #### [id number] ####[facility] ([facility] [place], [place] [address]Vnrj nitrogen [Mass/Vol]26 mg/dLHigh7-25UnSelect Medical Specialty Hospital - CantonComment on above:Performed By: #### [id number] ####[facility] ([facility] [place], [place] [address]BHUN NITROGEN/CREATININE (MASS RATIO) IN SER/PLAS29.9Normal [facility] SouthComment on above:Performed By: #### [id number] ####[facility] ([facility] [place], [place] [address]EOW WITH AUTO DIFFERENTIALon 33-02-3025Ebnytxpwk (Bld) [#/Vol]0.07 10*3/uLNormal0.00-0.20 [facility] SouthComment on above:Performed By: #### [id number] ####[facility] ([facility] [place], [place] [address]Ovtykpzgv/100 WBC (Bld)0.7 %Normal0.0-1.0UnSelect [facility] Specialty Hospital - CantonComment on above: Performed By: #### [id number] ####[facility] ([facility] [place], [place] [address]Exvunhuafyi (Bld) [#/Vol]0.17 10*3/uLNormal0.00-0.50 [facility] SouthComment on above:Performed By: #### [id number] ####[facility] ([facility])[address] [place], [place] [address]Nkyveridjki/100 WBC (Bld)1.7 %Normal0.0-6.0UnSelect Medical Specialty Hospital - CantonComment on above: Performed By: #### [id number] ####[facility] ([facility] [place], [place] [address]Ayzxkskcduw distribution width (RBC) [Ratio]18.6 %High 11.5-15.0UnSelect [facility] Specialty Hospital - CantonComment on above:Performed By: #### [id number] ####[facility] ([facility] [place] [address] ERYTHROCYTE MEAN CORPUSCULAR HEMOGLOBIN CONCENTRATION (G/DL) BY JPYYKNQCG22.7 g/dLLow32.0-35.0UnSelect [facility] Specialty Hospital - CantonComment on above:Performed By: #### [id number] ####[facility] ([facility] [place], [place] [address]Twuoqtjxan (Bld) [Volume fraction]29.6 %Low39.0-50.0UnSelect [facility] Specialty Hospital - CantonComment on above:Performed By: #### [id number] ####[facility] ([facility])[address] [place], [place] [address]Lqceygkdmb (Bld) [Mass/Vol]9.1 g/dLLow 13.0-17.0UnSelect [facility] Hospital - CantonComment on above:Performed By: #### [id number] ####[facility] ([facility])[address] [place], [place] [address]Rhjdqtpc granulocytes (Bld) [#/Vol]0.04 10*3/uLNormal0.00-0.20UnSelect Medical Specialty Hospital - CantonComment on above:Performed By: #### [id number] ####[facility] ([facility])[address] [place], [place] [address]Cnxakyxt granulocytes/100 WBC (Bld)0.4 %Normal0.0-1.0UnSelect [facility] Specialty Hospital - CantonComment on above:Performed By: #### [id number] ####[facility] ([facility])[address] [place] [address] Lymphocytes (Bld) [#/Vol]1.92 10*3/uLNormal1.20-4.00UnSelect [facility] Special[facility] Hospital - CantonComment on above:Performed By: #### [id number] ####[facility] ([facility])[address] [place] [address]Shlsyvggtwc/100 WBC (Bld)19.4 %Low 20.0-45.0Un[facility] Hospital - CantonComment on above:Performed By: #### [id number] ####[facility] ([facility])[address] [place] [address]NTD (RBC) [Entitic mass]24.9 pgLow27.0-33.0Un[facility] Comment on above:Performed By: #### [id number] ####[facility] ([facility])[address] [place], [place] [address]CMY (RBC) [Entitic vol]80.9 fLLow82.0-98.0 [facility] SouthComment on above:Performed By: #### [id number] ####[facility] ([facility])[address] [place], [place] [address]Qaytfvmjh (Bld) [#/Vol]0.45 10*3/uLNormal0.10-1.00UnSelect [facility] Special[facility] Hospital - CantonComment on above:Performed By: #### [id number] ####[facility] ([facility])[address] [place], [place] [address]Kcxzbnbqe/100 WBC (Bld)4.5 %Low5.0-12.0UnSelect [facility] Special[facility] Hospital - CantonComment on above:Performed By: #### [id number] ####[facility] ([facility])[address] [facility] [place], [place] [address]Scfxuaskhdi (Bld) [#/Vol]7.25 10*3/uL Normal1.60-7.60UnSelect Medical Specialty Hospital - CantonComment on above:Performed By: #### [id number] ####[facility] ([facility] [place] [address] Neutrophils/100 WBC (Bld)73.3 %High40.0-72.0Un[facility] Comment on above:Performed By: #### [id number] ####[facility] ([facility] [place] [address]BCKQ (PER 100 WBCS) BY AUTOMATED COUNT0.0 %Normal0 [facility] SouthComment on above:Performed By: #### [id number] ####[facility] ([facility] [place] [address]XWDYYTGHC (10*3/UL) IN BLOOD AUTOMATED [id number] 10*3/wVJzgkeu799-559JdvjtwzhiiSelect Medical Specialty Hospital - CantonComment on above:Performed By: #### [id number] ####[facility] ([facility] [place] [address]BID (Bld) [#/Vol]3.66 10*6/uLLow 4.20-5.70UnSelect Medical Specialty Hospital - CantonComment on above:Performed By: #### [id number] ####[facility] ([facility] [place] [address]HCZ (Bld) [#/Vol]9.90 10*3/uLNormal4.00-10.60Un[facility] Comment on above:Performed By: #### [id number] ####[facility] ([facility] [place] [address]STqr 90-79-6779PIZiorozPclbjbgbxo of [facility] Medical CenterMAGNESIUMon 72-44-1952Noqvxjybq [Mass/Vol]1.9 mg/dLNormal1.9-2.7 [facility] SouthComment on above:Performed By: #### [id number] ####[facility] ([facility])[address] [place] [address]VJWF GLUCOSE METER UNSOLICITED RESULTSon 40-87-2462Ojcocrr [Mass/Vol]168 mg/zPMfvm92-566 [facility] SouthComment on above:Order Comment: Waived Testing in the ED is performed under the ED CLIA certificate #[id number].Result Comment: [email or web address] By: #### [id number] ####[facility] ([facility] [place], [place] [address]Mnovnul [Mass/Vol]102 mg/qRYxadfa23-833AchkhcjmusSelect Medical Specialty Hospital - CantonComment on above:Order Comment: Waived Testing in the ED is performed under the ED CLIA certificate #[id number].Result Comment: [email or web address] Performed By: #### [id number] ####[facility] ([facility] [place] [address]Ipefhsn [Mass/Vol]115 mg/qSBiqi19-983MbbvkudbccSelect Medical Specialty Hospital - CantonComment on above:Order Comment: Waived Testing in the ED is performed under the ED CLIA certificate #[id number].Result Comment: isegura2 Performed By: #### [id number] ####[facility] ([facility] [place], [place] [address]Zniidno [Mass/Vol]131 mg/mXOfun29-911YqolprybpcSelect Medical Specialty Hospital - CantonComment on above:Order Comment: Waived Testing in the ED is performed under the ED CLIA certificate #[id number].Result Comment: clarcom Performed By: #### [id number] ####[facility] ([facility])[address] [place] [address]hp 41-31-699120PmazwgGhoqgpixpy of [facility] Svvcpc66 NormalUnSelect Medical Specialty Hospital - CantonAPTTon 08-94-3109YQWNHKLTL PARTIAL THROMBOPLASTIN TIME IN PPP BY COAGULATION ASSAY70.2 WgolygdWnyb68.0-35.0 [facility] SouthComment on above:Result Comment: Clinical significance of the APTT is questionable in the presence of heparin.Performed By: #### [id number] ####[facility] ([facility] [place] [address] ACTIVATED PARTIAL THROMBOPLASTIN TIME IN PPP BY COAGULATION ASSAY72.9 Seconds High25.0-35.0UnSelect Medical Specialty Hospital - CantonComment on above:Result Comment: Clinical significance of the APTT is questionable in the presence of heparin. Performed By: #### [id number] ####[facility] ([facility] [place] [address]SMLSZ METABOLIC PANELon 33-38-5436Rqbpn gap [Moles/Vol]13 mmol/LNormal7-20UnSelect Medical Specialty Hospital - CantonComment on above:Performed By: #### [id number] ####[facility] ([facility] [place] [address] Calcium [Mass/Vol]8.7 mg/dLNormal8.6-10.3Un[facility] Comment on above:Performed By: #### [id number] ####[facility] ([facility] [place] [address]Finreite [Moles/Vol]99 mmol/MLolrhw96-966SeqadmayfiSelect Medical Specialty Hospital - CantonComment on above:Performed By: #### [id number] ####[facility] ([facility] [place] [address]DA1 [Moles/Vol]29 mmol/L Sjgpay82-36FylqmxbqgySelect Medical Specialty Hospital - CantonComment on above:Performed By: #### [id number] ####[facility] ([facility] [place] [address] Creatinine [Mass/Vol]0.89 mg/dLNormal0.70-1.30UnSelect Medical Specialty Hospital - CantonComment on above:Performed By: #### [id number] ####[facility] ([facility] [place], [place] [address]XPBINNDZMX FILTRATION RATE ML/MIN/1.73 SQ M.ENTWMRYQW09.3 mL/min/1.73m*2Normal>60.0Un[facility] Comment on above:Result Comment: The [facility]???s estimated glomerular filtration rate (eGFR) will no longer include consideration of race in its calculation. The [employer]???s eGFR Task Force developed new recommendations for the estimation of the glomerular filtration ra te in the [place] They recommend immediate implementation of the new equation refit without the race variable in all laboratories because the calculation does not include race. In addition to not including race in the calculation and reporting, it included diversity in its development, and has acceptable performance characteristics and potential consequences that do not disproportionately affect anyone group of individuals.Performed By: #### [id number] ####[facility] ([facility] [facility] [place] [address]Pjjvqfl [Mass/Vol]120 mg/fOUbum98-504HrtspzyygbSelect Medical Specialty Hospital - CantonComment on above:Performed By: #### [id number] ####[facility] ([facility] [place], [place] [address]Szwendsud [Moles/Vol]3.3 mmol/LLow3.5-5.1UnSelect Medical Specialty Hospital - CantonComment on above:Performed By: #### [id number] ####[facility] ([facility] [facility] [place], [place] [address]Jzkroe [Moles/Vol]138 mmol/LNormal 136-145UnSelect Medical Specialty Hospital - CantonComment on above:Performed By: #### [id number] ####[facility] ([facility] [place], [place] [address]Ixol nitrogen [Mass/Vol]20 mg/dLNormal7-25UnSelect Medical Specialty Hospital - CantonComment on above:Performed By: #### [id number] ####[facility] ([facility] AVApellis PharmaceuticalsWAYNE MEMORIAL HOSPITALO, [place] [address]VIOC NITROGEN/CREATININE (MASS RATIO) IN SER/PLAS22.5Normal [facility] SouthComment on above:Performed By: #### [id number] ####[facility] ([facility] [place], [place] [address]VFQ WITH AUTO DIFFERENTIALon [id number] (Bld) [#/Vol]0.06 10*3/uLNormal0.00-0.20 [facility] - [place] SouthComment on above:Performed By: #### [id number] ####[facility] ([facility])[address] [place], [place] [address]Rgkodjovh/100 WBC (Bld)0.5 %Normal0.0-1.0Un[facility] Hospital - CantonComment on above: Performed By: #### [id number] ####[facility] ([facility])[address] [place], [place] [address]Xsyzufesdof (Bld) [#/Vol]0.22 10*3/uLNormal0.00-0.50 [facility] SouthComment on above:Performed By: #### [id number] ####[facility] ([facility] [place], [place] [address]Zqtdpoozrfw/100 WBC (Bld)1.9 %Normal0.0-6.0Un[facility] Hospital - CantonComment on above: Performed By: #### [id number] ####[facility] ([facility] [place], [place] [address]Eijkhlnqxlq distribution width (RBC) [Ratio]18.6 %High 11.5-15.0Un[facility] Hospital - CantonComment on above:Performed By: #### [id number] ####[facility] ([facility])[address] [place] [address] ERYTHROCYTE MEAN CORPUSCULAR HEMOGLOBIN CONCENTRATION (G/DL) BY KRRNHSPYU24.3 g/dLLow32.0-35.0Un[facility] Hospital - CantonComment on above:Performed By: #### [id number] ####[facility] ([facility])[address] [place], [place] [address]Ggtqgibiuz (Bld) [Volume fraction]32.3 %Low39.0-50.0Un[facility] Hospital - CantonComment on above:Performed By: #### [id number] ####[facility] ([facility])[address] [place], [place] [address]Qffnacwhum (Bld) [Mass/Vol]9.8 g/dLLow 13.0-17.0Un[facility] Hospital - CantonComment on above:Performed By: #### [id number] ####[facility] ([facility])[address] [place] [address]Panhyanx granulocytes (Bld) [#/Vol]0.05 10*3/uLNormal0.00-0.20Un[facility] Hospital - CantonComment on above:Performed By: #### [id number] ####[facility] ([facility])[address] [place], [place] [address]Ofnecgdk granulocytes/100 WBC (Bld)0.4 %Normal0.0-1.0Un[facility] Special[facility] Hospital - CantonComment on above:Performed By: #### [id number] ####[facility] ([facility])[address] [place] [address] Lymphocytes (Bld) [#/Vol]1.64 10*3/uLNormal1.20-4.00UnSelect Medical Specialty Hospital - CantonComment on above:Performed By: #### [id number] ####[facility] (AKER)[address] [place], [place] [address]Qfceapcxklj/100 WBC (Bld)13.9 %Low 20.0-45.0UnSelect Medical Specialty Hospital - CantonComment on above:Performed By: #### [id number] ####[facility] (BEAKER)[address] [place], [place] [address]JPQ (RBC) [Entitic mass]24.6 pgLow27.0-33.0UnSelect [facility] - [facility]on Comment on above:Performed By: #### [id number] ####[facility] (BEAKER)[address] [place], [place] [address]CGK (RBC) [Entitic vol]81.2 fLLow82.0-98.0 [facility] - [facility] SouthComment on above:Performed By: #### [id number] ####[facility] (BEAKER)[address] [place], [place] [address]Eykhnhwev (Bld) [#/Vol]0.68 10*3/uLNormal0.10-1.00UnSelect Medical Specialty Hospital - CantonComment on above:Performed By: #### [id number] ####[facility] ([facility] [place] [address]Ygnoclxwh/100 WBC (Bld)5.8 %Normal5.0-12.0UnSelect Medical Specialty Hospital - CantonComment on above:Performed By: #### [id number] ####[facility] ([facility] [place] [address]Rhtyswdhsom (Bld) [#/Vol] 9.15 10*3/uLHigh1.60-7.60UnSelect Medical Specialty Hospital - CantonComment on above: Performed By: #### [id number] ####[facility] ([facility] [place] [address]Ajzisfqqbxy/100 WBC (Bld)77.5 %High40.0-72.0UnSelect Medical Specialty Hospital - CantonComment on above:Performed By: #### [id number] ####[facility] ([facility] [place] [address]WHVE (PER 100 WBCS) BY AUTOMATED COUNT0.0 %Mevuuy2MuxdrrveewSelect Medical Specialty Hospital - CantonComment on above: Performed By: #### [id number] ####[facility] ([facility] [place] [address]FQQZJBJBJ (10*3/UL) IN BLOOD AUTOMATED [id number] 10*3/uLNormal 150-400UnSelect Medical Specialty Hospital - CantonComment on above:Performed By: #### [id number] ####[facility] ([facility] [place], [place] [address]XGB (Bld) [#/Vol]3.98 10*6/uLLow4.20-5.70UnSelect Medical Specialty Hospital - CantonComment on above:Performed By: #### [id number] ####[facility] (BEAKER)[address] [place], [place] [address]FGZ (Bld) [#/Vol]11.80 10*3/uLHigh4.00-10.60UnSelect Medical Specialty Hospital - CantonComment on above:Performed By: #### [id number] ####[facility] ([facility] [address]XOBQTNRUZtw 11-20-2024 Magnesium [Mass/Vol]1.7 mg/dLLow1.9-2.7Un[facility] Comment on above:Performed By: #### [id number] ####[facility] ([facility] [address]OADI GLUCOSE METER UNSOLICITED RESULTSon 11-20-2024 Glucose [Mass/Vol]307 mg/eFBcpq71-367YmtmnvkbqzSelect Medical Specialty Hospital - CantonComment on above:Order Comment: Waived Testing in the ED is performed under the ED CLIA certificate #[id number].Result Comment: xqqrrb40Nmthrpcfd By: #### [id number] ####[facility] ([facility] [address]Ugnscck [Mass/Vol]140 mg/cMQmfv77-715YbiivtgzmxSelect Medical Specialty Hospital - CantonComment on above:Order Comment: Waived Testing in the ED is performed under the ED CLIA certificate #[id number].Result Comment: qilsh59Vynoxzxur By: #### [id number] ####[facility] ([facility] [address]Zfcaeyc [Mass/Vol]124 mg/cBJvvp99-480DmsaysbcwsSelect Medical Specialty Hospital - CantonComment on above:Order Comment: Waived Testing in the ED is performed under the ED CLIA certificate #[id number].Result Comment: hxnmuag2Wrblludpa By: #### [id number] ####[facility] (BEAKER)[address] [address]Gbczxln [Mass/Vol]111 mg/rHLjsg16-867XiyvmbzetuSelect Medical Specialty Hospital - CantonComment on above:Order Comment: Waived Testing in the ED is performed under the ED CLIA certificate #[id number].Result Comment: nhsnsqx4Umoerdbvc By: #### [id number] ####[facility] ([facility] 1517196lj 11-19-2024 30The patient is Moderately Stable - Low risk of patient condition declining or worsening The patient's goals for the shift include comfort/rest The clinical goals for the shift include vss, safetyNormalUniversity of Saint David'S [facility] Medical CenterJscesk09XilzdgMmmohwugmr of Saint David'S [facility] Medical CenterAPTTon 11-19-2024 ACTIVATED PARTIAL THROMBOPLASTIN TIME IN PPP BY COAGULATION ASSAY49.4 Seconds High25.0-35.0UnSelect Medical Specialty Hospital - CantonComment on above:Order Comment: Check aPTT every 6 hours while on heparin infusion, or per protocol.Result Comment: Clinical significance of the APTT is questionable in the presence of heparin.Performed By: #### [id number] ####[facility] ([facility] [place] [address]VNIZKFAXU PARTIAL THROMBOPLASTIN TIME IN PPP BY COAGULATION ASSAY31.8 MkrncdjHpjxiu92.0-35.0UnSelect Medical Specialty Hospital - CantonComment on above:Order Comment: Baseline aPTT before initiating heparin infusion.Result Comment: Clinical significance of the APTT is questionable in the presence of heparin.Performed By: #### [id number] ####[facility] ([facility] [place] [address]UDGGA METABOLIC PANELon 67-52-3319Dkcbg gap [Moles/Vol]11 mmol/LNormal7-20UnSelect Medical Specialty Hospital - CantonComment on above:Performed By: #### [id number] ####[facility] ([facility] [place] [address] Calcium [Mass/Vol]8.2 mg/dLLow8.6-10.3UnSelect Medical Specialty Hospital - CantonComment on above:Performed By: #### [id number] ####[facility] ([facility] [place] [address]Zfpjswix [Moles/Vol]99 mmol/BEkdxdb99-952ShilcgcmmySelect Medical Specialty Hospital - CantonComment on above:Performed By: #### [id number] ####[facility] ([facility] [place] [address]QX4 [Moles/Vol]28 mmol/NFfdwut70-23 [facility] - Columbus SouthComment on above:Performed By: #### [id number] ####[facility] ([facility] [place] [address]Depknjyvgk [Mass/Vol]0.73 mg/dLNormal0.70-1.30UnSelect Medical Specialty Hospital - CantonComment on above:Performed By: #### [id number] ####[facility] ([facility] [facility]ITALMal[place], [place] [address]CUMOYTHBXA FILTRATION RATE ML/MIN/1.73 SQ M.QBORUSQBN462.2 mL/min/1.73m*2Normal>60.0UnSelect Medical Specialty Hospital - CantonComment on above: Result Comment: The [facility]???s estimated glomerular filtration rate (eGFR) will no [...] potential consequences that do not disproportionately affect anyone group of individuals.Performed By: #### [id number] ####[facility] ([facility] [place], [place] [address]Efabojd [Mass/Vol]88 mg/aFLgzkvy65-638YapaesmgxuSelect Medical Specialty Hospital - CantonComment on above:Performed By: #### [id number] ####[facility] ([facility] [facility] [place] [address]Ygwnhsrjb [Moles/Vol]3.1 mmol/LLow3.5-5.1UnSelect Medical Specialty Hospital - CantonComment on above:Performed By: #### [id number] ####[facility] ([facility] [facility] [place] [address] Sodium [Moles/Vol]135 mmol/TKgt209-872JadwexvacjSelect Medical Specialty Hospital - CantonComment on above:Performed By: #### [id number] ####[facility] ([facility] [place], [place] [address]Nkqf nitrogen [Mass/Vol]18 mg/dLNormal7-25UnSelect Medical Specialty Hospital - CantonComment on above:Performed By: #### [id number] ####[facility] ([facility] [place], [place] [address]ORWS NITROGEN/CREATININE (MASS RATIO) IN SER/PLAS24.7NormalUniversCincinnati Children's Hospital Medical CenterComment on above: Performed By: #### [id number] ####[facility] ([facility] [place], [place] [address]VZC WITH AUTO DIFFERENTIALon 82-97-4208Tqelushio (Bld) [#/Vol]0.06 10*3/uLNormal0.00-0.20UnSelect Medical Specialty Hospital - CantonComment on above: Performed By: #### [id number] ####[facility] ([facility] [place], [place] [address]Jawmeyzba/100 WBC (Bld)0.7 %Normal0.0-1.0UnSelect Medical Specialty Hospital - CantonComment on above:Performed By: #### [id number] ####[facility] ([facility] [place], [place] [address]Tqdzebsazwp (Bld) [#/Vol]0.20 10*3/uL Normal0.00-0.50UnSelect Medical Specialty Hospital - CantonComment on above:Performed By: #### [id number] ####[facility] ([facility] [place] [address] Eosinophils/100 WBC (Bld)2.2 %Normal0.0-6.0Un[facility] Comment on above:Performed By: #### [id number] ####[facility] ([facility] [place], [place] [address]Fshiirccvkt distribution width (RBC) [Ratio]18.6 % High11.5-15.0UnSelect Medical Specialty Hospital - CantonComment on above:Performed By: #### [id number] ####[facility] (BE[facility]ANNER)[address] [place] [address] ERYTHROCYTE MEAN CORPUSCULAR HEMOGLOBIN CONCENTRATION (G/DL) BY AWUUGQJLO39.5 g/dLLow32.0-35.0UnSelect Medical Specialty Hospital - CantonComment on above:Performed By: #### [id number] ####[facility] ([facility] [place], [place] [address]Wuozgsfkfz (Bld) [Volume fraction]29.8 %Low39.0-50.0UnSelect Medical Specialty Hospital - CantonComment on above:Performed By: #### [id number] ####[facility] ([facility] [place], [place] [address]Tibeiyjrqy (Bld) [Mass/Vol]9.1 g/dLLow 13.0-17.0UnSelect Medical Specialty Hospital - CantonComment on above:Performed By: #### [id number] ####[facility] ([facility] [place], [place] [address]Iveqneai granulocytes (Bld) [#/Vol]0.02 10*3/uLNormal0.00-0.20UnSelect Medical Specialty Hospital - CantonComment on above:Performed By: #### [id number] ####[facility] (AKER)[address] [place], [place] [address]Fiomzkmy granulocytes/100 WBC (Bld)0.2 %Normal0.0-1.0UnSelect Medical Specialty Hospital - CantonComment on above:Performed By: #### [id number] ####[facility] ([facility] [place] [address] Lymphocytes (Bld) [#/Vol]1.36 10*3/uLNormal1.20-4.00UnSelect Medical Specialty Hospital - CantonComment on above:Performed By: #### [id number] ####[facility] (BEAKER)[address] [place], [place] [address]Llmzqnmntjb/100 WBC (Bld)14.9 %Low 20.0-45.0UnSelect Medical Specialty Hospital - CantonComment on above:Performed By: #### [id number] ####[facility] (BEAKER)[address] [place] [address]TVY (RBC) [Entitic mass]24.6 pgLow27.0-33.0Un[facility] Comment on above:Performed By: #### [id number] ####[facility] ([facility] [place] [address]LTK (RBC) [Entitic vol]80.5 fLLow82.0-98.0 [facility] - Columbus SouthComment on above:Performed By: #### [id number] ####[facility] ([facility] [facility]ITALMal[place], [place] [address]Oleumbwxx (Bld) [#/Vol]0.60 10*3/uLNormal0.10-1.00UnSelect Medical Specialty Hospital - CantonComment on above:Performed By: #### [id number] ####[facility] ([facility] [place], [place] [address]Gkarisdck/100 WBC (Bld)6.6 %Normal5.0-12.0UnSelect Medical Specialty Hospital - CantonComment on above:Performed By: #### [id number] ####[facility] ([facility])[address] [facility] [place] [place] [address]Wbmicxrgqfz (Bld) [#/Vol] 6.87 10*3/uLNormal1.60-7.60UnSelect Medical Specialty Hospital - CantonComment on above: Performed By: #### [id number] ####[facility] ([facility])[address] [place] [address]Oijsmgizzks/100 WBC (Bld)75.4 %High40.0-72.0UnSelect Medical Specialty Hospital - CantonComment on above:Performed By: #### [id number] ####[facility] ([facility])[address] [place], [place] [address]RDDG (PER 100 WBCS) BY AUTOMATED COUNT0.0 %Kkycrl6MergvxncqiSelect Medical Specialty Hospital - CantonComment on above: Performed By: #### [id number] ####[facility] ([facility] [place] [address]YPEZUSJMU (10*3/UL) IN BLOOD AUTOMATED [id number] 10*3/uLNormal 150-400UnSelect Medical Specialty Hospital - CantonComment on above:Performed By: #### [id number] ####[facility] ([facility] [place] [address]VLY (Bld) [#/Vol]3.70 10*6/uLLow4.20-5.70UnSelect Medical Specialty Hospital - CantonComment on above:Performed By: #### [id number] ####[facility] ([facility] [place] [address]KUM (Bld) [#/Vol]9.11 10*3/uLNormal4.00-10.60UnSelect Medical Specialty Hospital - CantonComment on above:Performed By: #### [id number] ####[facility] ([facility] [address]KONHGVNwu 11-19-2024 CONSULTNormalUniversCincinnati Children's Hospital Medical CenterHEMOGLOBIN A1Con 11-19-2024 Glucose [Mass/Vol]146 mg/dLNormalUniZanesville City HospitalComment on above:Performed By: #### [id number] ####[facility] ([facility] [address]DxM4x (Bld) [Mass fraction]6.7 %High4.0-6.0UnSelect Medical Specialty Hospital - CantonComment on above:Performed By: #### [id number] ####[facility] ([facility])[address] [place] [address]CPTV SENSITIVITY TROPONIN Ion 26-59-9118MD TROPONIN I (NG/L)5 ng/LNormal<20Un[facility] Comment on above:Performed By: #### [id number] ####[facility] (BEAKER)[address] [place], [place] [address]LQ TROPONIN I (NG/L)6 ng/LNormal<20UnSelect Medical Specialty Hospital - CantonComment on above:Performed By: #### [id number] ####[facility] ([facility] [address]DL TROPONIN I (NG/L)8 ng/LNormal<20UnSelect Medical Specialty Hospital - CantonComment on above:Performed By: #### [id number] ####[facility] ([facility] [address]QN on 26-20-1346VEQysehvGcqqehnhiy [facility]terson Medical CenterMAGNESIUMon 11-19-2024 Magnesium [Mass/Vol]1.7 mg/dLLow1.9-2.7Un[facility] Comment on above:Performed By: #### [id number] ####[facility] ([facility] [address]OGJNOEFW COUNTon 61-85-3510NVNDPOCMS (10*3/UL) IN BLOOD AUTOMATED [id number] 10*3/eQGbhrrx948-345BnrkzgocgtSelect Medical Specialty Hospital - [facility]on Comment on above:Performed By: #### [id number] ####[facility] ([facility] [place] [address]FEQS GLUCOSE METER UNSOLICITED RESULTSon 11-19-2024 Glucose [Mass/Vol]212 mg/tJQqya51-793MopmbrxewmSelect Medical Specialty Hospital - CantonComment on above:Order Comment: Waived Testing in the ED is performed under the ED CLIA certificate #[id number].Result Comment: dbfmak17Eymhsruzx By: #### [id number] ####[facility] ([facility] [place] [address]Ictegva [Mass/Vol]102 mg/zDLpprkk68-221OmuhopkdadSelect Medical Specialty Hospital - CantonComment on above:Order Comment: Waived Testing in the ED is performed under the ED CLIA certificate #[id number].Result Comment: swettlePerformed By: #### [id number] ####[facility] ([facility] [place] [address]Ffhsmls [Mass/Vol]119 mg/bZIlbh18-015ElaafpcjkdSelect Medical Specialty Hospital - CantonComment on above:Order Comment: Waived Testing in the ED is performed under the ED CLIA certificate #[id number].Result Comment: srabeePerformed By: #### [id number] ####[facility] ([facility] [place], [place] [address]Inmvmfr [Mass/Vol]125 mg/lOTbai39-793RnsvqimmpjSelect Medical Specialty Hospital - CantonComment on above:Order Comment: Waived Testing in the ED is performed under the ED CLIA certificate #[id number].Result Comment: srabeePerformed By: #### [id number] ####[facility] ([facility] [place], [place] [address]K-KGFZ NATRIURETIC PEPTIDEon 09-79-4787Wrvzjwmgwcu peptide B (Bld) [Mass/Vol]111 pg/mL High0-100Select [facility] - Columbus SouthComment on above:Performed By: #### [id number] ####[facility] ([facility] [place], [place] [address]ETPB GLUCOSE METER UNSOLICITED RESULTSon 79-76-5554Jmmlnmf [Mass/Vol]220 mg/dLHigh 70-105UnSelect Medical Specialty Hospital - CantonComment on above:Order Comment: Waived Testing in the ED is performed under the ED CLIA certificate #[id number].Result Comment: nxkngiq08Qpepgmksd By: #### [id number] ####[facility] ([facility] [place], [place] [address]Spjxppobz Auto (Bld) [#/Vol]on 04-30-5223Mlxxmfofb (Bld) [#/Vol]0.1 10 3/uL0.0-0.1FSt. Mary's Medical CenterBasophils/100 WBC Auto (Bld)on 64-55-8242Ioxwiauvz/100 WBC (Bld)0.7 %0.2-2.0[facility] DaytonEosinophils/100 WBC Auto (Bld)on 39-54-7714Nxowrgztvvz/100 WBC (Bld)1.6 %0.9-7.0[facility] DaytonErythrocyte distribution width Auto (RBC) [Ratio]on 45-02-5338Hmyylxyecib distribution width (RBC) [Ratio]16.1 %High11.0-15.0[facility] DaytonEstimated glomerular filtration rate (GFR) non- Americanon 27-55-8099QKF/1.73 sq M.predicted among non- blacks MDRD (S/P/Bld) [Vol rate/Area]mL/min/{1.73_m2}>=60 mL/min/1.73m 2 [facility] DaytonGlobulin Calc (S) [Mass/Vol]on 09-23-2024 Globulin (S) [Mass/Vol]4.4 g/dLKindred Hospital DaytonHematocrit Auto (Bld) [Volume fraction]on 52-56-3769Zxqekxawkl (Bld) [Volume fraction]34.6 %Low 42.0-54.0[facility] DaytonHemoglobin [Mass/volume] in Bloodon 71-67-7520Lttwzljasy (Bld) [Mass/Vol]10.6 g/dLLow14.0-18.0[facility] DaytonLaboratory - Chemistry and Chemistry - challengeon 09-23-2024 Albumin [Mass/Vol]3.0 g/dLLow3.4-5.0[facility] DaytonALP [Catalytic activity/Vol]79 U/G65-587KxcvmyfilKindred Hospital DaytonALT [Catalytic activity/Vol]15 U/JKbv85-33EsxkmrdbeKindred Hospital DaytonAST [Catalytic activity/Vol]19 U/K23-02CixxxmxwqKindred Hospital DaytonBilirubin [Mass/Vol]0.6 mg/dL0.2-1.0[facility] DaytonCalcium [Mass/Vol]9.2 mg/dL8.5-10.1FSt. Mary's Medical CenterChloride [Moles/Vol]105 mmol/L 98-107Kind[facility] DaytonCO2 [Moles/Vol]27.3 mmol/L21.0-32.0 [facility] DaytonCreatinine [Mass/Vol]0.99 mg/dL0.70-1.30 [facility] DaytonGFR/1.73 sq M.predicted MDRD (S/P/Bld) [Vol rate/Area]mL/min/{1.73_m2}>=60 mL/min/1.73m 2FSt. Mary's Medical Center Glucose [Mass/Vol]88 mg/kZ48-506ZitfkuzilKindred Hospital DaytonNatriuretic peptide B (Bld) [Mass/Vol]63.0 pg/mL<=900.0[facility] Potassium [Moles/Vol]4.1 mmol/L3.5-5.1FSt. Mary's Medical CenterProtein [Mass/Vol]7.4 g/dL6.4-8.2FCincinnati Shriners Hospitalodium [Moles/Vol]139 mmol/D442-833TzsuqqksrKindred Hospital DaytonUrea nitrogen [Mass/Vol]22.0 mg/dL High7.0-18.0[facility] DaytonUrea nitrogen/Creatinine [Mass ratio]22.2 mg/mgKindred Hospital DaytonLaboratory - Hematology and Cell countson 00-94-7592Erdccslg granulocytes/100 WBC (Bld)0.3 %0.0-0.5FSt. Mary's Medical CenterLeukocytes [#/volume] corrected for nucleated erythrocytes in Blood by Automated counon 64-40-9993OAP corrected for nucl RBC Auto (Bld) [#/Vol]7.3 10 3/uL4.0-11.0[facility] Lymphocytes Auto (Bld) [#/Vol]on 70-08-5220Fmvoesyhuwa (Bld) [#/Vol]1.7 10 3/uL 1.2-3.8[facility] DaytonLymphocytes/100 WBC Auto (Bld)on 15-75-4464Ewopnqzjkpk/100 WBC (Bld)23.4 %20.5-60.0[facility] Community HospitalH Auto (RBC) [Entitic mass]on 37-33-5045ILY (RBC) [Entitic mass]25.6 pg Low25.9-34.0[facility] DaytonMCHC Auto (RBC) [Mass/Vol]on 78-12-6763MHDT (RBC) [Mass/Vol]30.6 g/dL29.9-35.2FSt. Mary's Medical CenterMCV Auto (RBC) [Entitic vol]on 84-86-7945MYL (RBC) [Entitic vol]83.6 fL 80.0-94.0[facility] DaytonMonocytes Auto (Bld) [#/Vol]on 30-73-9779Rteqvqnmd (Bld) [#/Vol]0.3 10 3/uL0.3-0.8[facility] DaytonMonocytes/100 WBC Auto (Bld)on 45-43-6789Dewzwxpqm/100 WBC (Bld)4.2 % 1.7-12.0[facility] DaytonNeutrophils Auto (Bld) [#/Vol]on 60-07-6544Cjdhejrcgwk (Bld) [#/Vol]5.1 10 3/uL1.4-6.5FSt. Mary's Medical CenterNeutrophils/100 WBC Auto (Bld)on 81-12-9133Kapareopava/100 WBC (Bld)69.8 % 43.0-75.0[facility] DaytonNo Panel Informationon 09-23-2024 Eosinophils # (Auto)0.1 10 3/uL0.0-0.7FSt. Mary's Medical CenterImmature Granulocyte # (Auto)0.02 10 3/uL0.00-0.03[facility] Platelet mean volume Auto (Bld) [Entitic vol]on 31-63-5382Kiorehye mean volume (Bld) [Entitic vol]10.5 fL9.5-13.5FSt. Mary's Medical CenterPlatelets Auto (Bld) [#/Vol]on 31-01-2608Hgtwzzflg (Bld) [#/Vol]332 10 3/oD269-576 [facility] DaytonRBC Auto (Bld) [#/Vol]on 28-97-9603BON (Bld) [#/Vol]4.14 10 6/uLLow4.70-6.10[facility] Companyerum or plasma albumin/globulin mass ratioon 91-10-3712Vbajvqk/Globulin [Mass ratio]0.7 {ratio} [facility] Companyerum or plasma anion gap determinationon 16-26-4546Whrwh gap [Moles/Vol]10.8 mmol/LFSt. Mary's Medical Center Glucose (Bld) [Mass/Vol]Ordered By: Margaret Brooks on 48-08-9649Olevflm Blood, FHD698 mg/dLNOWV HealthcareLaboratory - Hematology and Cell countson 08-31-2024 HbA1c (Bld) [Mass fraction]5.7 %[facility] HealthcareNo Panel InformationOrdered By: Margaret Brooks on 93-48-7070QQXD HealthcareCoding Queryon 43-99-7172Fycpye Query Coding Query From: Juan José HERBERT, Tessie March To: Katelyn GILBERT, Mark Tavares; Sent: 07/26/2024 13:48:15 EDT ! Subject: Coding Query Due Date/Time: 07/27/2024 13:47:00 EDT Caller Name: MATT WATERMAN; Caller Number: Romaine , Based on the documentation in the medical record, this patient has undergone Wound Care and/or Debridement of a wound. The following is also documented in the medical record: 07/25 Procedure note: Technique After obtaining informed consent patient was positioned in the standing position at the request and the stage III coccygeal wound was identified.The wound measured 4 x 1 x 0.3 cm with no tunneling or undermining identified. There was fibrinous exudate noted in the base of the wound. The wound was debrided using a curette. It was until there was a small punctate hemorrhage noting healthy tissue. Hemostasis was achieved by holding pressure. A clean dressing was applied. The patient tolerated the procedure without difficulty Based on your medical judgment, can you further clarify the precise type, margins, instruments, region, site and depth of wound debridement utilized in this visit? Select all that apply: Type: Excisional: [___]Excision (cutting away or off without replacement) Non-excisional: [___]Extraction (pulling or stripping by force) Depth: (deepest layer of debridement) [___]Skin [___]Fascia [___]Muscle [___]Subcutaneous tissue [___]Other: In responding to this request, please exercise your independent professional judgement. The fact that a question is asked does not imply that any particular answer is desired or expected. Thank you![id number] [id number] From: Tessie Can RN To: Kristel Banda; Sent: 08/11/2024 06:35:16 EDT Subject: FW: Coding Query Due Date/Time: 2024 06:35:00 EDT Caller Name: MATT WATERMAN; Caller Number: Romaine , Joshua From: Tessie Can RN To: Katelyn GILBERT, Mark Tavares; Cc: Kristel Banda; Sent: 2024 06:44:42 EDT Subject: FW: Coding Query Due Date/Time: 08/13/2024 06:44:00 EDT Caller Name: MATT WATERMAN; Caller Number: Romaine , M Hi Dr Zepeda, I see this query was deleted. Can you kindly answer? 07/25 you did a Bedside debridement of a coccygeal pressure ulcer. Need type of debridement please Excisional or Nonexcisional ? Much thanks tessie coppola From: Mark Zepeda MD To: Tessie Can RN; Sent: 2024 07:54:09 EDT Subject: RE: Coding Query Caller Name: MATT WATERMAN; Caller Number: Romaine , M excisionalNormalFisher Holy Cross HospitalBASIC METABOLIC PANELon 08-03-2024 Anion gap [Moles/Vol]10 mmol/LNormal7-20Un[facility] Comment on above:Performed By: #### [id number] ####[facility] ([facility])[address] [place], [place] [address]Jxybhrp [Mass/Vol]8.2 mg/dLLow8.6-10.3UnSelect Medical Specialty Hospital - CantonComment on above:Performed By: #### [id number] ####[facility] ([facility] [place] [address]Lcxgpmom [Moles/Vol]99 mmol/LIgvazl03-572DrduzdkumwSelect Medical Specialty Hospital - CantonComment on above:Performed By: #### [id number] ####[facility] ([facility] [place] [address] CO2 [Moles/Vol]27 mmol/OBvvkhg84-74PcxtbflvjhSelect Medical Specialty Hospital - CantonComment on above:Performed By: #### [id number] ####[facility] ([facility] [place] [address]Ofjaihlqil [Mass/Vol]0.81 mg/dLNormal0.70-1.30UnSelect Medical Specialty Hospital - CantonComment on above:Performed By: #### [id number] ####[facility] ([facility] [place] [address]DDJFGOLDCF FILTRATION RATE ML/MIN/1.73 SQ M.HFXAAXMKX13.7 mL/min/1.73m*2Normal>60.0UnSelect Medical Specialty Hospital - CantonComment on above:Result Comment: [facility]???s estimated glomerular filtration rate (eGFR) will no [...] potential consequences that do not disproportionately affect anyone group of individuals.Performed By: #### [id number] ####[facility] ([facility] [address]Drrfnni [Mass/Vol]243 mg/kLKfln36-654EheubcigriSelect Medical Specialty Hospital - CantonComment on above:Performed By: #### [id number] ####[facility] (BEAKER)[address] [place] [address]Lrfokxnmo [Moles/Vol]3.8 mmol/LNormal3.5-5.1UnSelect Medical Specialty Hospital - CantonComment on above:Performed By: #### [id number] ####[facility] (AKER)[address] [address]Kshwig [Moles/Vol]132 mmol/LLow 136-145UnSelect Medical Specialty Hospital - CantonComment on above:Performed By: #### [id number] ####[facility] (BE[facility])[address] [place] [place] [address]Mfvu nitrogen [Mass/Vol]33 mg/dLHigh7-25UnSelect [facility] Specialty Hospital - CantonComment on above:Performed By: #### [id number] ####[facility] ([facility] [place] [address]XJIF NITROGEN/CREATININE (MASS RATIO) IN SER/PLAS40.7Normal [facility] SouthComment on above:Performed By: #### [id number] ####[facility] ([facility] [place] [address]KIDno 08-03-2024 Erythrocyte distribution width (RBC) [Ratio]17.4 %High11.5-15.0UnSelect Medical Specialty Hospital - CantonComment on above:Performed By: #### [id number] ####[facility] ([facility] [place] [address]MIIMHHPZOHZ MEAN CORPUSCULAR HEMOGLOBIN CONCENTRATION (G/DL) BY LSGUVQQAC34.9 g/dLLow32.0-35.0 [facility] SouthComment on above:Performed By: #### [id number] ####[facility] (BE[facility]ANNER)[address] [place] [address]Tvcceavljf (Bld) [Volume fraction]29.8 %Low39.0-50.0UnSelect [facility] Specialty Hospital - CantonComment on above:Performed By: #### [id number] ####[facility] (BEAKER)[address] [place] [address]Werbtagnxr (Bld) [Mass/Vol]8.9 g/dLLow13.0-17.0UnSelect [facility] Specialty Hospital - CantonComment on above:Performed By: #### [id number] ####[facility] ([facility] [place] [address]VCQ (RBC) [Entitic mass] 27.2 quWvdhje46.0-33.0UnSelect Medical Specialty Hospital - CantonComment on above: Performed By: #### [id number] ####[facility] ([facility] [address]XBO (RBC) [Entitic vol]91.1 aGZmiodm66.0-98.0UnSelect [facility] Specialty Hospital - CantonComment on above:Performed By: #### [id number] ####[facility] ([facility] [place] [address]XTXEJGTEC (10*3/UL) IN BLOOD AUTOMATED BZWZP572 10*3/rZQlyivt237-017JadhvqphivSelect Medical Specialty Hospital - [facility] Comment on above:Performed By: #### [id number] ####[facility] ([facility] [place] [address]MRS (Bld) [#/Vol]3.27 10*6/uLLow4.20-5.70UnSelect Medical Specialty Hospital - CantonComment on above:Performed By: #### [id number] ####[facility] ([facility] [address]BED (Bld) [#/Vol]7.99 10*3/uLNormal4.00-10.60UnSelect [facility] Specialty Hospital - CantonComment on above: Performed By: #### [id number] ####[facility] ([facility] [address]PWXYCAEFFkv 55-17-7587Bvztwytnp [Mass/Vol]2.4 mg/dLNormal 1.9-2.7UnSelect Medical Specialty Hospital - CantonComment on above:Performed By: #### [id number] ####[facility] ([facility] [place] [address]NJJOOBJJ on 55-54-3268UUZUDEBHYxxpdgVnkqpbquta of [facility]edo Medical CenterPOCT GLUCOSE METER UNSOLICITED RESULTSon 74-97-8663Bcskjhf [Mass/Vol]218 mg/qPEezg99-337AooykahleiSelect Medical Specialty Hospital - CantonComment on above:Order Comment: Waived Testing in the ED is performed under the ED CLIA certificate #[id number].Result Comment: vheqrpf66Ttazbhget By: #### [id number] ####[facility] (BEAKER)[address] [place] [address]Qrfynlr [Mass/Vol]161 mg/dGCyvg98-810PflozrvxetSelect Medical Specialty Hospital - CantonComment on above:Order Comment: Waived Testing in the ED is performed under the ED CLIA certificate #[id number].Result Comment: [email or web address] Performed By: #### [id number] ####[facility] (BE[facility]ER)[address] [place] [address]69uj 14-08-593037XtfmuuQgzhyxgtkqZanesville City Hospital BASIC METABOLIC PANELon 91-98-3947Ghggp gap [Moles/Vol]12 mmol/LNormal7-20 [facility] SouthComment on above:Performed By: #### [id number] ####[facility] (BE[facility]ER)[address] [place] [address]Wgdfmad [Mass/Vol]7.9 mg/dLLow8.6-10.3UnSelect Medical Specialty Hospital - CantonComment on above:Performed By: #### [id number] ####[facility] (BE[facility]ER)[address] [place] [address]Usznpqom [Moles/Vol]97 mmol/CQys23-264XvnqxchhexSelect Medical Specialty Hospital - CantonComment on above:Performed By: #### [id number] ####[facility] (BEAKER)[address], [place] [address]MK5 [Moles/Vol]26 mmol/WArydnq83-78 [facility] SouthComment on above:Performed By: #### [id number] ####[facility] (BE[facility]ER)[address] [address]Ookidehakg [Mass/Vol]1.24 mg/dLNormal0.70-1.30UnSelect [facility] Special[facility] Hospital - CantonComment on above:Performed By: #### [id number] ####[facility] ([facility] [address]ODKOZHPTMZ FILTRATION RATE ML/MIN/1.73 SQ M.QIHXRAUUY48.7 mL/min/1.73m*2Normal>60.0UnSelect [facility] Specialty Hospital - CantonComment on above: Result Comment: The [facility]???s estimated glomerular filtration rate (eGFR) will no [...] potential consequences that do not disproportionately affect anyone group of individuals.Performed By: #### [id number] ####[facility] ([facility] [address]Grlkzzf [Mass/Vol]140 mg/gJDuhk17-626TqyicqvtpsSelect Medical Specialty Hospital - CantonComment on above:Performed By: #### [id number] ####[facility] ([facility] [address]Kmnbykvyc [Moles/Vol]3.7 mmol/L Normal3.5-5.1UnSelect Medical Specialty Hospital - CantonComment on above:Performed By: #### [id number] ####[facility] ([facility])[address] [place] [address] Sodium [Moles/Vol]131 mmol/ETku752-766JqvssphsbySelect Medical Specialty Hospital - CantonComment on above:Performed By: #### [id number] ####[facility] ([facility] [place], [place] [address]Rtia nitrogen [Mass/Vol]49 mg/dLHigh7-25UnSelect [facility] Specialty Hospital - CantonComment on above:Performed By: #### [id number] ####[facility] ([facility] [address]ZBKK NITROGEN/CREATININE (MASS RATIO) IN SER/PLAS39.5NormalUniversCincinnati Children's Hospital Medical CenterComment on above: Performed By: #### [id number] ####[facility] ([facility] [address]ZPXta 77-17-6882Rkwpmmijjiv distribution width (RBC) [Ratio]17.6 %High 11.5-15.0UnSelect Medical Specialty Hospital - CantonComment on above:Performed By: #### [id number] ####[facility] ([facility] [place] [address] ERYTHROCYTE MEAN CORPUSCULAR HEMOGLOBIN CONCENTRATION (G/DL) BY MFQNGXYJR68.3 g/dLLow32.0-35.0UnSelect Medical Specialty Hospital - CantonComment on above:Performed By: #### [id number] ####[facility] ([facility] [place] [address] Hematocrit (Bld) [Volume fraction]25.4 %Low39.0-50.0UnSelect Medical Specialty Hospital - CantonComment on above:Performed By: #### [id number] ####[facility] ([facility], [place] [address]Lzbgcheszx (Bld) [Mass/Vol]7.7 g/dLLow 13.0-17.0UnSelect Medical Specialty Hospital - CantonComment on above:Performed By: #### [id number] ####[facility] ([facility] [place], [place] [address]EXM (RBC) [Entitic mass]27.2 lxBypsdl99.0-33.0UnSelect [facility] Specialty Hospital - CantonComment on above:Performed By: #### [id number] ####[facility] ([facility])[address] [place], [place] [address]HGE (RBC) [Entitic vol]89.8 eDJvwexv70.0-98.0[facility] of Du Medical CenterComment on above:Performed By: #### [id number] ####[facility] ([facility] [address]DDYUIAHHK (10*3/UL) IN BLOOD AUTOMATED [id number] 10*3/fTCyustq275-020IbzebmqwptSelect Medical Specialty Hospital - [facility] Comment on above:Performed By: #### [id number] ####[facility] ([facility] [address]JRF (Bld) [#/Vol]2.83 10*6/uLLow4.20-5.70UnSelect Medical Specialty Hospital - CantonComment on above:Performed By: #### [id number] ####[facility] ([facility] [place] [address]IQG (Bld) [#/Vol]9.61 10*3/uLNormal4.00-10.60UnSelect Medical Specialty Hospital - CantonComment on above: Performed By: #### [id number] ####[facility] ([facility] [place] [address]DZWBTPCTVmr 66-43-8417Ahkggzvjc [Mass/Vol]2.2 mg/dLNormal 1.9-2.7UnSelect Medical Specialty Hospital - CantonComment on above:Performed By: #### [id number] ####[facility] ([facility] [address]NIGK GLUCOSE METER UNSOLICITED RESULTSon 96-24-3995Aiqekey [Mass/Vol]209 mg/dLHigh 70-105UnSelect Medical Specialty Hospital - CantonComment on above:Order Comment: Waived Testing in the ED is performed under the ED CLIA certificate #[id number].Result Comment: sgqpftd0Ejkdgrugk By: #### [id number] ####[facility] ([facility] [address]Cykgfly [Mass/Vol]150 mg/vVRkwu62-979LrvebswvrdSelect Medical Specialty Hospital - CantonComment on above:Order Comment: Waived Testing in the ED is performed under the ED CLIA certificate #[id number].Result Comment: [email or web address] Performed By: #### [id number] ####[facility] (BEAKER)[address] [place] [address]Uzeyryg [Mass/Vol]199 mg/zGSxxh10-230DypevxkymdSelect Medical Specialty Hospital - CantonComment on above:Order Comment: Waived Testing in the ED is performed under the ED CLIA certificate #[id number].Result Comment: ndubois3 Performed By: #### [id number] ####[facility] ([facility] [place] [address]Wfiwifi [Mass/Vol]183 mg/zBWrfo65-130FesojtggpsSelect Medical Specialty Hospital - CantonComment on above:Order Comment: Waived Testing in the ED is performed under the ED CLIA certificate #[id number].Result Comment: ndubois3 Performed By: #### [id number] ####[facility] ([facility] [place] [address]FJQLZGYS ACID LEVEL, TOTALon 46-00-7536PJAWIIOOI (UG/ML) IN SER/PLAS75 ug/sTNxqbos67-868ZeonccrbusSelect Medical Specialty Hospital - CantonComment on above: Order Comment: Before AM dose of DepakotePerformed By: #### [id number] ####[facility] ([facility] [place] [address]01hs 34-09-034244Osxsrw [facility]30NormalUniversCincinnati Children's Hospital Medical Center BASIC METABOLIC PANELon 35-35-5056Noyqr gap [Moles/Vol]15 mmol/LNormal7-20 [facility] SouthComment on above:Performed By: #### [id number] ####[facility] ([facility])[address] [place] [address]Dseosjl [Mass/Vol]8.6 mg/dLNormal8.6-10.3UnSelect Medical Specialty Hospital - CantonComment on above:Performed By: #### [id number] ####[facility] ([facility])[address] [place] [address]Yvctyfdg [Moles/Vol]94 mmol/OQbn81-909DxiaznsbfrSelect Medical Specialty Hospital - CantonComment on above:Performed By: #### [id number] ####[facility] ([facility] [place] [address]JO7 [Moles/Vol]25 mmol/MYduegv12-49 [facility] SouthComment on above:Performed By: #### [id number] ####[facility] ([facility] [place] [address]Llveswlcvs [Mass/Vol]1.81 mg/dLHigh0.70-1.30UnSelect Medical Specialty Hospital - CantonComment on above:Performed By: #### [id number] ####[facility] ([facility] [place] [address]IQTWOCZWAH FILTRATION RATE ML/MIN/1.73 SQ M.XANFSEQZZ96.8 mL/min/1.73m*2Low>60.0UnSelect Medical Specialty Hospital - CantonComment on above:Result Comment: The [facility]???s estimated glomerular filtration rate (eGFR) will no [...] potential consequences that do not disproportionately affect anyone group of individuals.Performed By: #### [id number] ####[facility] ([facility] [place] [address]Wokvbjz [Mass/Vol]148 mg/vXZqpu23-485UbgowwqjnlSelect Medical Specialty Hospital - CantonComment on above:Performed By: #### [id number] ####[facility] ([facility] [address]Twcamlxes [Moles/Vol]3.6 mmol/L Normal3.5-5.1UnSelect Medical Specialty Hospital - CantonComment on above:Performed By: #### [id number] ####[facility] ([facility] [place] [address] Sodium [Moles/Vol]130 mmol/WOvx378-537YeeowwtjbsSelect Medical Specialty Hospital - CantonComment on above:Performed By: #### [id number] ####[facility] ([facility] [place], [place] [address]Xjvs nitrogen [Mass/Vol]43 mg/dLHigh7-25UnSelect Medical Specialty Hospital - CantonComment on above:Performed By: #### [id number] ####[facility] ([facility] [place], [place] [address]LBMK NITROGEN/CREATININE (MASS RATIO) IN SER/PLAS23.8NormalUniversCincinnati Children's Hospital Medical CenterComment on above: Performed By: #### [id number] ####[facility] ([facility] [place], [place] [address]Fxoqy gap [Moles/Vol]15 mmol/LNormal7-20UnSelect Medical Specialty Hospital - CantonComment on above:Performed By: #### LAB15 ####[facility] ([facility] [place], [place] [address]Wymexzx [Mass/Vol]7.6 mg/dLLow8.6-10.3 [facility] SouthComment on above:Performed By: #### LAB15 ####[facility] ([facility] [place], [place] [address]Ygwkhhjp [Moles/Vol]97 mmol/RLzt39-875RnzgqejeaySelect Medical Specialty Hospital - CantonComment on above:Performed By: #### LAB15 ####[facility] ([facility] [place], [place] [address]LW9 [Moles/Vol]20 mmol/YJwl15-94FnovnlainsSelect Medical Specialty Hospital - CantonComment on above:Performed By: #### LAB15 ####[facility] ([facility] [place], [place] [address]Fxgtpufdiv [Mass/Vol]1.97 mg/dLHigh 0.70-1.30UnSelect Medical Specialty Hospital - CantonComment on above:Performed By: #### [id number] ####[facility] ([facility] [place] [address]KCKRTYETJO FILTRATION RATE ML/MIN/1.73 SQ M.LVEONDILO52.7 mL/min/1.73m*2Low>60.0UnSelect Medical Specialty Hospital - CantonComment on above:Result Comment: The [facility]???s estimated glomerular filtration rate (eGFR) will no [...] potential consequences that do not disproportionately affect anyone group of individuals. Performed By: #### [id number] ####[facility] ([facility] [place], [place] [address]Suguexr [Mass/Vol]124 mg/tEIldq10-797IerrhcnpwhSelect Medical Specialty Hospital - CantonComment on above:Performed By: #### LAB15 ####[facility] ([facility], [place] [address]Eorrckhgx [Moles/Vol]4.3 mmol/LNormal 3.5-5.1UnSelect Medical Specialty Hospital - CantonComment on above:Performed By: #### LAB15 ####[facility] ([facility] [place], [place] [address]Zhamsd [Moles/Vol]128 mmol/ZGis549-745ZtarofwyttSelect Medical Specialty Hospital - CantonComment on above:Performed By: #### LAB15 ####[facility] ([facility] [place], [place] [address]Edtw nitrogen [Mass/Vol]41 mg/dLHigh7-25UnSelect Medical Specialty Hospital - CantonComment on above:Performed By: #### LAB15 ####[facility] ([facility] [place], [place] [address]IVWR NITROGEN/CREATININE (MASS RATIO) IN SER/PLAS20.8NormalUniversCincinnati Children's Hospital Medical CenterComment on above: Performed By: #### [id number] ####[facility] ([facility])[address] [place] [address]GKHOK CULTUREon 48-18-8805Igqrjnxk identified Cx Nom (Bld)No growth at 5 daysNormalUniZanesville City HospitalComment on above:Performed By: #### [id number] ####[facility] ([facility])[address] [place] [address] Order Comment: From a different site than #1.CBCon 90-50-9710Jozrfkvfcmi distribution width (RBC) [Ratio]18.3 %High11.5-15.0UnSelect Medical Specialty Hospital - CantonComment on above:Performed By: #### [id number] ####[facility] ([facility] [place], [place] [address]XGKNMLCODHR MEAN CORPUSCULAR HEMOGLOBIN CONCENTRATION (G/DL) BY LRGRICMOC94.9 g/dLLow32.0-35.0UnSelect Medical Specialty Hospital - CantonComment on above:Performed By: #### [id number] ####[facility] ([facility])[address] [place], [place] [address]Uzzklsiufd (Bld) [Volume fraction]27.2 %Low39.0-50.0UnSelect Medical Specialty Hospital - CantonComment on above: Performed By: #### [id number] ####[facility] ([facility])[address] [place], [place] [address]Duloggmkrn (Bld) [Mass/Vol]8.4 g/dLLow13.0-17.0UnSelect Medical Specialty Hospital - CantonComment on above:Performed By: #### [id number] ####[facility] ([facility])[address] [place], [place] [address]JHA (RBC) [Entitic mass] 27.7 akAbasxk31.0-33.0UnSelect Medical Specialty Hospital - CantonComment on above: Performed By: #### [id number] ####[facility] ([facility])[address] [place], [place] [address]SKJ (RBC) [Entitic vol]89.8 kYHmlzeh62.0-98.0UnSelect Medical Specialty Hospital - CantonComment on above:Performed By: #### [id number] ####[facility] ([facility] [place] [address]KQFUFCDKL (10*3/UL) IN BLOOD AUTOMATED FROTR582 10*3/tDNmqydq270-088BrtvdjxqrkSelect Medical Specialty Hospital [facility] Comment on above:Performed By: #### [id number] ####[facility] ([facility] [address]RLL (Bld) [#/Vol]3.03 10*6/uLLow4.20-5.70UnSelect Medical Specialty Hospital - CantonComment on above:Performed By: #### [id number] ####[facility] ([facility] [address]IVW (Bld) [#/Vol]16.25 10*3/uLHigh4.00-10.60UnSelect Medical Specialty Hospital - CantonComment on above: Performed By: #### [id number] ####[facility] ([facility] [place] [address]FUKTWXWts 81-38-8060MHUCVFHYehyvkXpnrgxnqjl of Toledo Medical CenterLACTIC ACID WITH 4 HOUR REFLEXon 20-77-86[address]DALIMDR (MMOL/L) IN SER/PLAS 1.0 mmol/LNormal0.5-2.2UnSelect Medical Specialty Hospital - CantonComment on above: Performed By: #### [id number] ####[facility] ([facility] [place] [address]ANCJCTEDAnz 13-24-2078Vmhouxqcg [Mass/Vol]2.0 mg/dLNormal 1.9-2.7UnSelect Medical Specialty Hospital - CantonComment on above:Performed By: #### [id number] ####[facility] ([facility] [place] [address]VDWH GLUCOSE METER UNSOLICITED RESULTSon 38-88-5447Pelrgpu [Mass/Vol]180 mg/dLHigh 70-105UnSelect Medical Specialty Hospital - CantonComment on above:Order Comment: Waived Testing in the ED is performed under the ED CLIA certificate #[id number].Result Comment: [email or web address] By: #### [id number] ####[facility] ([facility])[address] [place], [place] [address]Ipiflbq [Mass/Vol]111 mg/bUMvjc08-372VmwibseesgSelect Medical Specialty Hospital - CantonComment on above:Order Comment: Waived Testing in the ED is performed under the ED CLIA certificate #[id number].Result Comment: bacres Performed By: #### [id number] ####[facility] ([place])[address] [place], [place] [address]Yongehb [Mass/Vol]156 mg/oUAazz70-234EkhyyiwqrpSelect Medical Specialty Hospital - CantonComment on above:Order Comment: Waived Testing in the ED is performed under the ED CLIA certificate #[id number].Result Comment: [email or web address] Performed By: #### [id number] ####[facility] ([facility] [place], [place] [address]Dssuzon [Mass/Vol]149 mg/xXKlry12-035OdbfriupgtSelect Medical Specialty Hospital - CantonComment on above:Order Comment: Waived Testing in the ED is performed under the ED CLIA certificate #[id number].Result Comment: [email or web address] Performed By: #### [id number] ####[facility] ([place])[address] [place], [place] [address]pm 19-51-166777NhcyrjKygonqkuet of [facility] BASIC METABOLIC PANELon 81-68-1245Edtvt gap [Moles/Vol]12 mmol/LNormal7-20 [facility] SouthComment on above:Performed By: #### [id number] ####[facility] ([place])[address] [place], [place] [address]Enhmqqd [Mass/Vol]8.6 mg/dLNormal8.6-10.3UnSelect Medical Specialty Hospital - CantonComment on above:Performed By: #### [id number] ####[facility] ([facility] [place] [address]Kphjsteu [Moles/Vol]99 mmol/TJajrtv95-550KqsxezqnecSelect Medical Specialty Hospital - CantonComment on above:Performed By: #### [id number] ####[facility] ([facility] [place] [address]LU9 [Moles/Vol]26 mmol/WAduppc33-36 [facility] - [facility] SouthComment on above:Performed By: #### [id number] ####[facility] ([facility] [place] [address]Vdhxmjfzzu [Mass/Vol]0.94 mg/dLNormal0.70-1.30UnSelect Medical Specialty Hospital - CantonComment on above:Performed By: #### [id number] ####[facility] ([facility] [place] [address]SPSOQQVLST FILTRATION RATE ML/MIN/1.73 SQ M.VRZJFZHSF81.7 mL/min/1.73m*2Normal>60.0UnSelect Medical Specialty Hospital - CantonComment on above: Result Comment: [facility] [facility]s estimated glomerular filtration rate (eGFR) will no [...] potential consequences that do not disproportionately affect anyone group of individuals.Performed By: #### [id number] ####[facility] ([facility] [place] [address]Jgmaqmt [Mass/Vol]241 mg/aLIaxc13-259LxrghluwoxSelect Medical Specialty Hospital - CantonComment on above:Performed By: #### [id number] ####[facility] ([facility] [place] [address]Eozzyqhun [Moles/Vol]3.9 mmol/L Normal3.5-5.1UnSelect Medical Specialty Hospital - CantonComment on above:Performed By: #### [id number] ####[facility] (BEAKER)[address] [place] [address] Sodium [Moles/Vol]133 mmol/ODit335-753UwoylhdnscSelect Medical Specialty Hospital - CantonComment on above:Performed By: #### [id number] ####[facility] (BEAKER)[address] [place], [place] [address]Pudu nitrogen [Mass/Vol]19 mg/dLNormal7-25UnSelect Medical Specialty Hospital - CantonComment on above:Performed By: #### [id number] ####[facility] (AKER)[address] [place], [place] [address]IWHF NITROGEN/CREATININE (MASS RATIO) IN SER/PLAS20.2NormalUnSelect Medical Specialty Hospital - CantonComment on above: Performed By: #### [id number] ####[facility] (BEAKER)[address] [place], [place] [address]Fsmlm gap [Moles/Vol]10 mmol/LNormal7-20UnSelect Medical Specialty Hospital - CantonComment on above:Performed By: #### [id number] ####[facility] (BEAKER)[address] [place], [place] [address]Awhswkq [Mass/Vol]8.5 mg/dLLow8.6-10.3 [facility] SouthComment on above:Performed By: #### [id number] ####[facility] (BEAKER)[address] [place], [place] [address]Dmfifgye [Moles/Vol]100 mmol/WIejupn47-478MaufilcgdpSelect Medical Specialty Hospital - CantonComment on above:Performed By: #### [id number] ####[facility] (BEAKER)[address] [place], [place] [address]IS2 [Moles/Vol]27 mmol/PNpsinn57-84KoknsxhhnwSelect Medical Specialty Hospital - CantonComment on above:Performed By: #### [id number] ####[facility] (BEAKER)[address] [place], [place] [address]Ggdanthnls [Mass/Vol]0.87 mg/dLNormal 0.70-1.30UnSelect Medical Specialty Hospital - CantonComment on above:Performed By: #### [id number] ####[facility] ([facility] [place] [address]FTAOKUMNDF FILTRATION RATE ML/MIN/1.73 SQ M.YNWDETUSB88.6 mL/min/1.73m*2Normal>60.0 [facility] SouthComment on above:Result Comment: [facility]???s estimated glomerular filtration rate (eG FR) will no longer include consideration of race [...] potential consequences that do not disproportionately affect anyone group of individuals. Performed By: #### [id number] ####[facility] ([facility] [place] [address]Libacgz [Mass/Vol]139 mg/sWCmou18-591WrkwqzlcswSelect Medical Specialty Hospital - CantonComment on above:Performed By: #### [id number] ####[facility] ([facility] [place] [address]Yrnwkwrdc [Moles/Vol]3.9 mmol/LNormal 3.5-5.1UnSelect Medical Specialty Hospital - CantonComment on above:Performed By: #### [id number] ####[facility] ([facility] [place] [address]Dqrsmn [Moles/Vol]133 mmol/HMym095-549LuevsgeigcSelect Medical Specialty Hospital - CantonComment on above:Performed By: #### [id number] ####[facility] ([facility] [place] [address]Zzwu nitrogen [Mass/Vol]19 mg/dLNormal7-25UnSelect Medical Specialty Hospital - CantonComment on above:Performed By: #### [id number] ####[facility] ([facility] [place], [place] [address]PNFX NITROGEN/CREATININE (MASS RATIO) IN SER/PLAS21.8NormalUniversCincinnati Children's Hospital Medical CenterComment on above: Performed By: #### [id number] ####[facility] ([facility] [address]UFWfq 98-52-3776Ufurocdaulk distribution width (RBC) [Ratio]18.4 %High 11.5-15.0UnSelect Medical Specialty Hospital - CantonComment on above:Performed By: #### [id number] ####[facility] ([facility] [place] [address] ERYTHROCYTE MEAN CORPUSCULAR HEMOGLOBIN CONCENTRATION (G/DL) BY OMKORTBNL10.7 g/dLLow32.0-35.0UnSelect Medical Specialty Hospital - CantonComment on above:Performed By: #### [id number] ####[facility] ([facility] [place] [address] Hematocrit (Bld) [Volume fraction]32.2 %Low39.0-50.0UnSelect Medical Specialty Hospital - CantonComment on above:Performed By: #### [id number] ####[facility] ([facility] [place] [address]Gtsordcwoi (Bld) [Mass/Vol]9.9 g/dLLow 13.0-17.0UnSelect Medical Specialty Hospital - CantonComment on above:Performed By: #### [id number] ####[facility] ([facility] [place] [address]ZTZ (RBC) [Entitic mass]27.8 caFryrxd90.0-33.0UnSelect Medical Specialty Hospital - CantonComment on above:Performed By: #### [id number] ####[facility] ([facility] [place] [address]OQS (RBC) [Entitic vol]90.4 pCLglpnm72.0-98.0UnSelect Medical Specialty Hospital - CantonComment on above:Performed By: #### [id number] ####[facility] ([facility] [place] [address]UUNAORMRD (10*3/UL) IN BLOOD AUTOMATED [id number] 10*3/fXFzoenj863-866JdciazriibSelect Medical Specialty [facility] Comment on above:Performed By: #### [id number] ####[facility] ([facility] [place] [address]KJZ (Bld) [#/Vol]3.56 10*6/uLLow4.20-5.70UnSelect Medical Specialty Hospital - CantonComment on above:Performed By: #### [id number] ####[facility] ([facility] [place] [address]HFB (Bld) [#/Vol]13.45 10*3/uLHigh4.00-10.60UnSelect Medical Specialty Hospital - CantonComment on above: Performed By: #### [id number] ####[facility] ([facility] [place] [address]YJ HEAD WO IV CONTRASTon 29-92-2455RP HEAD WO IV CONTRAST Invalid Interpretation CodeUnSelect Medical Specialty Hospital - CantonMAGNESIUMon 06-95-0734Htpgqwqdv [Mass/Vol]1.9 mg/dLNormal1.9-2.7UnSelect Medical Specialty Hospital - CantonComment on above:Performed By: #### [id number] ####[facility] ([facility] [place] [address]ACPG GLUCOSE METER UNSOLICITED RESULTS on 68-33-1276Vbghwjc [Mass/Vol]172 mg/eXRxkn71-101MmovggzzfqSelect Medical Specialty Hospital - CantonComment on above:Order Comment: Waived Testing in the ED is performed under the ED CLIA certificate #[id number].Result Comment: bacresPerformed By: #### [id number] ####[facility] ([facility] [place] [address] Glucose [Mass/Vol]143 mg/rBJlyd32-043HzfigsevrnSelect Medical Specialty Hospital - CantonComment on above:Order Comment: Waived Testing in the ED is performed under the ED CLIA certificate #[id number].Result Comment: abeerboPerformed By: #### [id number] ####[facility] (BEAKER)[address] [place], [place] [address]Qczllfo [Mass/Vol]219 mg/ePCutq02-541CaqglqhlpaSelect Medical Specialty Hospital - CantonComment on above:Order Comment: Waived Testing in the ED is performed under the ED CLIA certificate #[id number].Result Comment: pyruaf58Vzmucyokv By: #### [id number] ####[facility] ([facility] [place], [place] [address]Ltquqmm [Mass/Vol]197 mg/nGWegj80-044MtkjqtevbmSelect Medical Specialty Hospital - CantonComment on above:Order Comment: Waived Testing in the ED is performed under the ED CLIA certificate #[id number].Result Comment: qffaru97Zoovtriua By: #### [id number] ####[facility] ([facility] [place] [id number] 40-91-43604607274895CkqfncRfohosiyum Wright-Patterson Medical CenterANESon 07-30-2024 ANESNormalUniversity Wright-Patterson Medical CenterANESNormalUniversity Wright-Patterson Medical CenterCBCon 77-33-1563Dsnzdzthpil distribution width (RBC) [Ratio]18.4 % High11.5-15.0UnSelect Medical Specialty Hospital - CantonComment on above:Performed By: #### [id number] ####[facility] ([facility] [place] [address] ERYTHROCYTE MEAN CORPUSCULAR HEMOGLOBIN CONCENTRATION (G/DL) BY VKUIGHKQU83.0 g/dLLow32.0-35.0UnSelect Medical Specialty Hospital - CantonComment on above:Performed By: #### [id number] ####[facility] (BE[facility]ANNER)[address] [place] [address] Hematocrit (Bld) [Volume fraction]32.9 %Low39.0-50.0UnSelect Medical Specialty Hospital - CantonComment on above:Performed By: #### [id number] ####[facility] ([facility] [place], [place] [address]Dwmvogimjd (Bld) [Mass/Vol]10.2 g/dL Low13.0-17.0UnSelect Medical Specialty Hospital - CantonComment on above:Performed By: #### [id number] ####[facility] ([facility] [place] [address]SCP (RBC) [Entitic mass]27.4 rgNkpvau73.0-33.0UnSelect [facility] Comment on above:Performed By: #### [id number] ####[facility] ([facility] [place] [address]OLL (RBC) [Entitic vol]88.4 yILtowei64.0-98.0 [facility] SouthComment on above:Performed By: #### [id number] ####[facility] ([facility] [place] [address]YMQFWEWGE (10*3/UL) IN BLOOD AUTOMATED BICLX977 10*3/pEArldhi197-751VtbnmrbsmxSelect Medical Specialty Hospital - CantonComment on above:Performed By: #### [id number] ####[facility] ([facility] [place] [address]PXI (Bld) [#/Vol]3.72 10*6/uLLow 4.20-5.70UnSelect Medical Specialty Hospital - CantonComment on above:Performed By: #### [id number] ####[facility] ([facility] [place] [address]VGB (Bld) [#/Vol]7.08 10*3/uLNormal4.00-10.60UnSelect Medical Specialty Hospital - CantonComment on above:Performed By: #### [id number] ####[facility] ([facility] [place] [address]LBne 39-05-8315VJQrqaezBtttvjqfes of [facility] NURSNOTEon 25-76-2032VHKTIVOYKth Dr. Minaya, patient ok to be discharged from PACU at this time and return to patient floor Karen Maciel RN PACUNormalUnSelect Medical Specialty Hospital - CantonOPNOTEon 67-06-4723KPDFFW NormalUnSelect Medical Specialty Hospital - CantonPOCT GLUCOSE METER UNSOLICITED RESULTS on 11-16-3938Dbifjzi [Mass/Vol]164 mg/eXNwja46-340NoszjrsxoiSelect Medical Specialty Hospital - CantonComment on above:Order Comment: Waived Testing in the ED is performed under the ED CLIA certificate #[id number].Result Comment: drockolPerformed By: #### [id number] ####[facility] (BEAKER)[address] [address] Glucose [Mass/Vol]176 mg/gQVcpp22-204OpttegdlqcSelect Medical Specialty Hospital - CantonComment on above:Order Comment: Waived Testing in the ED is performed under the ED CLIA certificate #[id number].Result Comment: btovva27Gizdsrbpz By: #### [id number] ####[facility] (BEAKER)[address] [place], [place] [address]Gjemmhb [Mass/Vol]145 mg/qJSkqg36-684MvqscgesguSelect Medical Specialty Hospital - CantonComment on above:Order Comment: Waived Testing in the ED is performed under the ED CLIA certificate #[id number].Result Comment: vdjuemq0Ywrarorrt By: #### [id number] ####[facility] (BEAKER)[address] [place], [place] [address]Utaouzl [Mass/Vol]175 mg/jXIdqw51-830DeieffwfgwSelect Medical Specialty Hospital - CantonComment on above:Order Comment: Waived Testing in the ED is performed under the ED CLIA certificate #[id number].Result Comment: hccdxt4Lobohwmwk By: #### [id number] ####[facility] (BEAKER)[address] [facility] [address]wh 07-29-2024 30NormalUniversity [facility] Center30NormalUniversCincinnati Children's Hospital Medical CenterANA w/Reflex if POSon 90-76-9150Kwmeivh Ab Ql (S)NegativeInvalid Interpretation CodeNegativeFishBaltimore VA Medical CenterComment on above:Result Comment: Performed at: [facility] [id number] PhD Crispin Grossmanformed By: #### [id number] #### [facility] [address] [place] [address]GFJav 06-91-7930Pdgivmjivbc distribution width (RBC) [Ratio] 18.5 %High11.5-15.0UnSelect Medical Specialty Hospital - CantonComment on above:Performed By: #### [id number] ####[facility] ([facility])[address] [place] [address]JRGNCJCZRXD MEAN CORPUSCULAR HEMOGLOBIN CONCENTRATION (G/DL) BY AUTOMATED 30.7 g/dLLow32.0-35.0UnSelect Medical Specialty Hospital - CantonComment on above: Performed By: #### [id number] ####[facility] ([facility] [place] [address]Xvutrqwoiy (Bld) [Volume fraction]34.8 %Low39.0-50.0 [facility] SouthComment on above:Performed By: #### [id number] ####[facility] (BEAKER)[address] [place], [place] [address]Egxectgejn (Bld) [Mass/Vol]10.7 g/dLLow13.0-17.0UnSelect Medical Specialty Hospital - CantonComment on above:Performed By: #### [id number] ####[facility] (BEAKER)[address] [place] [address]ZZY (RBC) [Entitic mass]27.2 ztXxmyil66.0-33.0UnSelect Medical Specialty Hospital - CantonComment on above:Performed By: #### [id number] ####[facility] (BEAKER)[address] [place], [place] [address]UAG (RBC) [Entitic vol] 88.5 tDVkthdk37.0-98.0UnSelect Medical Specialty Hospital - CantonComment on above: Performed By: #### [id number] ####[facility] (BEAKER)[address] [place] [address]ABEGMSZQS (10*3/UL) IN BLOOD AUTOMATED OYHTI850 10*3/uLNormal 150-400UnSelect Medical Specialty Hospital - CantonComment on above:Performed By: #### [id number] ####[facility] ([facility] [place], [place] [address]CCY (Bld) [#/Vol]3.93 10*6/uLLow4.20-5.70UnSelect Medical Specialty Hospital - CantonComment on above:Performed By: #### [id number] ####[facility] ([facility] [place], [place] [address]HHV (Bld) [#/Vol]8.97 10*3/uLNormal4.00-10.60UnSelect Medical Specialty Hospital - CantonComment on above:Performed By: #### [id number] ####[facility] ([facility] [place], [place] [address]DNEMTLQol 07-29-2024 CONSULTNormalUniversity of Saint David'S [facility] Rock Medical CenterCONSULTNormalUniversity Wright-Patterson Medical CenterImmunofixation Serumon 34-58-2718WxZ [Mass/Vol]641 mg/dL Weeh20-450DzgqqnMccullough-Hyde Memorial HospitalComment on above:Performed By: #### [id number] #### [facility] [address] [place], [place] [address]DtX [Mass/Vol]1473 mg/dLInvalid Interpretation Zhuj193-1084 [facility]-Hyde Memorial HospitalComment on above:Performed By: #### [id number] #### [facility] [address] [place], [place] [address]IjD [Mass/Vol]76 mg/dLInvalid Interpretation Ohsa81-041QuemyzMccullough-Hyde Memorial HospitalComment on above:Result Comment: Performed at: [address] [id number] PhD Crispin Grossmanformed By: #### [id number] #### [facility] [address] [place], [place] [address]Ifgfigz Fractions [Interp]Comment:Invalid Interpretation Code [facility]-Hyde Memorial HospitalComment on above:Result Comment: BECKY shows an asymmetrical IgM suggestive of a monoclonal proteinPerformed By: #### [id number] #### [facility] [address] [place], [place] [address]HLFE/MSSA DNA NASALon 20-23-3871EXDF DNAPositiveAbnormal NegativeUnSelect Medical Specialty Hospital - CantonComment on above:Order Comment: Testing methodology is an automated qualitative in vitro diagnostic test for the directdetection and differentiation of Staphylococcus aureus (SA) DNA and methicillin-resistant Staphylococcus aureus (MRSA) DNA from nasal swabs in patients at risk for nasal colonization. The test utilizes real-time polymerase chain reaction (PCR) for the amplification of MRSA/SA DNA and fluorogenic t arget-specific hybridization probes for the detection of the amplified DNA. A negative result does not preclude nasal colonization.Performed By: #### [id number] ####[facility] ([facility] [place], [place] [address]ERKD DNANegative NormalNegativeUnSelect Medical Specialty Hospital - CantonComment on above:Order Comment: Testing methodology is an automated qualitative in vitro diagnostic test for the directdetection and differentiation of Staphylococcus aureus (SA) DNA and methicillin-resistant Staphylococcus aureus (MRSA) DNA from nasal swabs in patients at risk for nasal colonization. The test utilizes real-time polymerase chain reaction (PCR) for the amplification of MRSA/SA DNA and fluorogenic t arget-specific hybridization probes for the detection of the amplified DNA. A negative result does not preclude nasal colonization.Performed By: #### [id number] ####[facility] ([facility] [place], [place] [address]SWIOMMJEhv 61-34-3656WSJRVKOUDMMB RN at bedside to assess power glide midline with ultrasound. Positive blood return, flushes easily, pt tolerated well.NormalUnSelect Medical Specialty Hospital - CantonPOCT GLUCOSE METER UNSOLICITED RESULTSon 00-60-1181Hokicld [Mass/Vol]206 mg/jQDdaw26-350QsyqydkycaSelect Medical Specialty Hospital - CantonComment on above:Order Comment: Waived Testing in the ED is performed under the ED CLIA certificate #[id number].Result Comment: goayn55Whewqxjqj By: #### [id number] ####[facility] ([facility] [facility], [place] [address]Lvmwgez [Mass/Vol]224 mg/qUEuux93-842FallhjgjmeSelect Medical Specialty Hospital - [facility] SouthComment on above:Order Comment: Waived Testing in the ED is performed under the ED CLIA certificate #[id number].Result Comment: yndnimy4Cqjlhnaaq By: #### [id number] ####[facility] ([facility] [place], [place] [address]Bpedzls [Mass/Vol]231 mg/cNEtmg80-797CfvdkbolguSelect Medical Specialty Hospital - CantonComment on above:Order Comment: Waived Testing in the ED is performed under the ED CLIA certificate #[id number].Result Comment: lkiurxx5Cxmvrrkzp By: #### [id number] ####[facility] ([facility] [place], [place] [address]Txzjvcl [Mass/Vol]150 mg/yTRulw09-859YsloipxtmhSelect Medical Specialty Hospital - CantonComment on above:Order Comment: Waived Testing in the ED is performed under the ED CLIA certificate #[id number].Result Comment: zagxvaq8Jrpdvqfiy By: #### [id number] ####[facility] ([facility] [place], [place] [address]SYI with Conf Rfxon 25-86-4726Ceucud Ab RPR Ql (S)Non-ReactiveInvalid Interpretation CodeNon ReactiveFisher Holy Cross HospitalComment on above:Result Comment: Performed at: [facility] [address] [id number] PhD Crispin Grossmanformed By: #### [id number] #### [facility] [address] [place], [place] [address]XZKcf 93-35-7724Qdukfyf [Mass/Vol]3.2 g/dLInvalid Interpretation Code2.9-4.4Fisher Holy Cross HospitalComment on above:Performed By: #### [id number] #### [facility] [address] [place], [place] [address]Hdhtisq/Globulin [Mass ratio]0.8 {ratio}Invalid Interpretation Code0.7-1.7FAdams County Regional Medical CenterComment on above:Performed By: #### [id number] #### [facility] [address] [place], [place] [address]Nooyf 1 globulin Elph [Mass/Vol]0.2 g/dLInvalid Interpretation Code0.0-0.4FAdams County Regional Medical CenterComment on above:Performed By: #### [id number] #### [facility] [address] [place], [place] [address]Ujhqf 2 globulin Elph [Mass/Vol]0.8 g/dLInvalid Interpretation Code0.4-1.0M[facility]ullough-Hyde Memorial HospitalComment on above:Performed By: #### [id number] #### [facility] [address] [place] [address]Arfq globulin Elph [Mass/Vol]1.4 g/dLHigh0.7-1.3FAdams County Regional Medical CenterComment on above:Performed By: #### [id number] #### [facility] [address] [place] [address]Lsmks globulin Elph [Mass/Vol]1.6 g/dLInvalid Interpretation Code0.4-1.8M[facility]ullough-Hyde Memorial HospitalComment on above:Performed By: #### [id number] #### [facility] [address] [place] [address]Cjzitcez (S) [Mass/Vol]4.0 g/dLHigh2.2-3.9M[facility]ullough-Hyde Memorial HospitalComment on above:Performed By: #### [id number] #### [facility] [address] [place] [address]Uwuazzwxpq comment Errol (Report)CommentInvalid Interpretation CodeMccullough-Hyde Memorial HospitalComment on above:Result Comment: Protein electrophoresis scan will follow via computer, mail, or cork molder delivery.Performed By: #### [id number] #### [facility] [address] [place], [place] [address]Otmlxbp [Mass/Vol]7.2 g/dLInvalid Interpretation Code6.0-8.5 [facility]-Hyde Memorial HospitalComment on above:Performed By: #### [id number] #### [facility] [address] [place], [place] [address]Nafecbw Fractions [Interp]CommentInvalid Interpretation Code [facility] Memorial HospitalComcorewell health [facility] on above:Result Comment: Faint band in gamma region suspicious for monoclonal immunoglobulin. This band may represent a benign spike as seen in older people or could be a paraprotein as seen in Multiple Myeloma, Waldenstrom's Macroglobulinemia or Lymphoma. Depending on clinical circumstances, further diagnostic studies may include serum immunofixation or serum free light chain quantitation. Performed at: [facility] [id number] PhD Crispin Grossmanformed By: #### [id number] #### [facility] [address] [place], [place] [address]Rqisnmw.monoclonal Elph [Mass/Vol]Comment:Invalid Interpretation CodeNot ObservedFishBaltimore VA Medical CenterComment on above: Result Comment: SPE shows asymmetrical gamma.Performed By: #### [id number] #### [facility] [address] [place], [place] [address]ASXR AND SCREENon 41-14-8240KH SCREENNegativeNormalUniversity Wright-Patterson Medical CenterComment on above:Performed By: #### [id number] ####[facility],ABO group Nom (Bld)ONormalUnSelect Medical Specialty Hospital - CantonComment on above:Performed By: #### [id number] ####[facility],RH TYPE IN BLOODPositive NormalUnSelect Medical Specialty Hospital - CantonComment on above:Performed By: #### [id number] ####[facility],URINALYSIS WITH REFLEX CULTUREon 04-53-5507MDNKIQKOF, TOTAL PRESENCE IN URINENegativeNormalNegativeSelect Medical Specialty Hospital - Columbus SouthComment on above:Order Comment: Microscopics not performed on urines with negative chemical reactions unless requested on original order.Performed By: #### [id number] ####[facility] (BEAKER)[address] [place] [address] Clarity (U)ClearNormalClearUnSelect Medical Specialty Hospital - CantonComment on above: Order Comment: Microscopics not performed on urines with negative chemical reactions unless requested on original order.Performed By: #### [id number] ####[facility] ([facility] [place] [place], [place] [address]Qpwpm (U)Light-Yellow NormalColorless, Yellow, Light-YellowUnSelect Medical Specialty Hospital - CantonComment on above:Order Comment: Microscopics not performed on urines with negative chemical reactions unless requested on original order.Performed By: #### [id number] ####[facility] ([facility] [place] [place], [place] [address]Yolcghn (U) [Mass/Vol]mg/dLAbnormalNormalUniZanesville City HospitalComment on above:Order Comment: Microscopics not performed on urines with negative chemical reactions unless requested on original order.Performed By: #### [id number] ####[facility] ([facility] [place], [place] [address]RUFOOZKEPT PRESENCE IN URINENegativeNoformerly vidant duplin hospitalNegNationwide Children's Hospital Comment on above:Order Comment: Microscopics not performed on urines with negative chemical reactions unless requested on original order.Performed By: #### [id number] ####[facility] ([facility] [place] [address] Ketones Ql (U)NegativeNormalNegativeSelect Medical Specialty Hospital - Columbus SouthComment on above:Order Comment: Microscopics not performed on urines with negative chemical reactions unless requested on original order.Performed By: #### [id number] ####[facility] ([facility] [place], [place] [address]YTDTJLNMQ ESTERASE PRESENCE IN URINE BY TEST STRIPNegativeNoformerly vidant duplin hospitalNegNationwide Children's HospitalComment on above:Order Comment: Microscopics not performed on urines with negative chemical reactions unless requested on original order. Performed By: #### [id number] ####[facility] ([facility], [place] [address]URALEKV PRESENCE IN URINENegativeNormalNegativeUnSelect Medical Specialty Hospital - CantonComment on above:Order Comment: Microscopics not performed on urines with negative chemical reactions unless requested on original order. Performed By: #### [id number] ####[facility] ([facility] [place], [place] [address]fC (U)6.0 [pH]Normal5.0-8.0UnSelect Medical Specialty Hospital - CantonComment on above:Order Comment: Microscopics not performed on urines with negative chemical reactions unless requested on original order.Performed By: #### [id number] ####[facility] ([facility] [facility] [address] Protein (U) [Mass/Vol]NegativeNormalNegativeUnSelect Medical Specialty Hospital - Canton Comment on above:Order Comment: Microscopics not performed on urines with negative chemical reactions unless requested on original order.Performed By: #### [id number] ####[facility] ([facility] [place] [address] Specific gravity (U) [Rel density]1.375Tlc4.010-1.030UnSelect Medical Specialty Hospital - CantonComment on above:Order Comment: Microscopics not performed on urines with negative chemical reactions unless requested on original order. Performed By: #### [id number] ####[facility] ([facility] [facility]ITALMal[place], [place] [address]CCVADAQWPMIE (MG/DL) IN URINENormalNormalNormalUniversCincinnati Children's Hospital Medical CenterComment on above:Order Comment: Microscopics not performed on urines with negative chemical reactions unless requested on original order. Performed By: #### [id number] ####[facility] ([facility] [facility]ISCOBLANCH[facility], [place] [address]AHJCTUJ Gagandeep 94-53-2901UDECPTX E LEVEL (ALPHA-TOCOPHEROL)6.9 mg/LNormal5.5-18.0UnSelect Medical Specialty Hospital - CantonComment on above:Result Comment: This test was developed and its performance characteristicsdetermined by [employer]. It has not been cleared orapproved by the [place] Food and Drug Administration. This test wasperformed in a CLIA certified laboratory and is intended forclinical purposes.Performed By: #### [id number] ####[facility] ([facility])[address] [place], [place] [address]XJBANZC E LEVEL (GAMMA-TOCOPHEROL)2.9 mg/LNormal0.0-6.0UnSelect Medical Specialty Hospital - [facility] Comment on above:Result Comment: Performed By: [facility] [address] [place], [place] [address]Ogpjjxdqov Director: Kamaljit Bennett MD, PhDCLIA Number: [id number] By: #### [id number] ####[facility] ([facility] [place], [place] [address]xj [id number] of [place] [facility] Vzvipm47LhhrxpNtiqolvdsaCincinnati Children's Hospital Medical CenterC-REACTIVE PROTEINon 07-28-2024 REACTIVE PROTEIN (MG/L) IN SER/PLAS18.1 mg/LHigh<=5.0UnSelect Medical Specialty Hospital - CantonComment on above:Result Comment: Testing performed using a new methodology, turbidimetry. Normal ranges have been updated. Old normal range was <8 mg/L.Performed By: #### [id number] ####[facility] ([facility] [place], [place] [address]DIZPKQCjj 70-83-2646IIJUGKICvujtaWmuauclatm of [place] Medical CenterMR BRAIN WO CONTRASTon 03-57-7125HS BRAIN WO CONTRAST Invalid Interpretation CodeUnSelect Medical Specialty Hospital - CantonMR THORACIC SPINE WO CONTRASTon 60-04-0379WG THORACIC SPINE WO CONTRASTInvalid Interpretation Code [facility] SouthPOCT GLUCOSE METER UNSOLICITED RESULTSon 37-14-1793Rffjylt [Mass/Vol]270 mg/dIJlcz22-734SqvudjemmfSelect Medical Specialty Hospital - CantonComment on above:Order Comment: Waived Testing in the ED is performed under the ED CLIA certificate #[id number].Result Comment: bacresPerformed By: #### [id number] ####[facility] ([facility])[address] [place] [address] Glucose [Mass/Vol]154 mg/jFBdet99-522ExtgbasdzpSelect Medical Specialty Hospital - CantonComment on above:Order Comment: Waived Testing in the ED is performed under the ED CLIA certificate #[id number].Result Comment: [id number] By: #### [id number] ####[facility] ([facility])[address] [place], [place] [address]Apnrxic [Mass/Vol]150 mg/lAMkwd64-002ZjweuwkfeoSelect Medical Specialty Hospital - CantonComment on above:Order Comment: Waived Testing in the ED is performed under the ED CLIA certificate #[id number].Result Comment: lryxt71Zivzrkxyb By: #### [id number] ####[facility] ([facility])[address] [place], [place] [address]Xssdgef [Mass/Vol]143 mg/sBHunu79-720CjyenpfrvtSelect Medical Specialty Hospital - CantonComment on above:Order Comment: Waived Testing in the ED is performed under the ED CLIA certificate #[id number].Result Comment: ueoso72Ldvwwqmhb By: #### [id number] ####[facility] ([facility])[address] [place], [place] [address]TEZODBYOBPPQH RATEon 79-53-4336WOOANKMXTSHMN RATE, SACZOCVRSAV85 mm/hrHigh<20UnSelect Medical Specialty Hospital - CantonComment on above:Performed By: #### [id number] ####[facility] ([facility] [place], [place] [address]ia 91-28-922726Epshed [facility] Hospital - Columbus SouthBMPon 37-93-6497Tghmj gap [Moles/Vol]12 mmol/LNormal6-16Fisher Holy Cross HospitalComment on above:Performed By: #### [id number] #### [facility] [address], [place] [address]Uqhwhcv [Mass/Vol]8.0 mg/dLLow8.9-11.1Fisher Holy Cross HospitalComment on above:Performed By: #### [id number] #### [facility] [address], [place] [address]Rxyibkjo [Moles/Vol]102 mmol/UAdoaas078-039Itrdmz See Medical CenterComment on above:Performed By: #### [id number] #### [facility] [address], [place] [address]BK7 [Moles/Vol]26 mmol/KXxpxeb36-27SmpllxMccullough-Hyde Memorial Hospital Comment on above:Performed By: #### [id number] #### [facility] [address], [place] [address]Whjfjbbvfx [Mass/Vol]1.6 mg/dLHigh0.5-1.3FAdams County Regional Medical CenterComment on above:Performed By: #### [id number] #### [facility] [address], [place] [address]Pwfgcfn [Mass/Vol]194 mg/mJFrneyf59-228RrfzcmMccullough-Hyde Memorial HospitalComment on above:Performed By: #### [id number] #### [facility] [address], [place] [address]Gxtqaxolz [Moles/Vol]3.4 mmol/LLow3.5-5.3FAdams County Regional Medical CenterComment on above:Performed By: #### [id number] #### [facility] [address], [place] [address]Wafdsz [Moles/Vol]137 mmol/DMkxrfb823-692TkigdoMccullough-Hyde Memorial HospitalComment on above:Performed By: #### [id number] #### [facility] [address], [place] [address]Acjs nitrogen [Mass/Vol]46 mg/dLHigh5-21M[facility]ull[facility]-Hyde Memorial HospitalComment on above:Performed By: #### [id number] #### [facility] [address], [place] [address]Hqqo nitrogen/Creatinine [Mass ratio]29 No NlojhJzun02-89QkwaiaMccullough-Hyde Memorial HospitalComment on above:Performed By: #### [id number] #### [facility] [address], [place] [address]SXF WITH AUTO DIFFERENTIALon 90-89-1215Vbirmzhin (Bld) [#/Vol] 0.04 10*3/uLNormal0.00-0.20UnSelect Medical Specialty Hospital - CantonComment on above: Performed By: #### [id number] ####[facility] ([facility])[address] [place], [place] [address]Vdcpmjkah/100 WBC (Bld)0.6 %Normal0.0-1.0UnSelect Medical Specialty Hospital - CantonComment on above:Performed By: #### [id number] ####[facility] ([facility])[address] [place], [place] [address]Xqmotdfbwzi (Bld) [#/Vol]0.14 10*3/uL Normal0.00-0.50UnSelect Medical Specialty Hospital - CantonComment on above:Performed By: #### [id number] ####[facility] ([facility] [place] [address] Eosinophils/100 WBC (Bld)2.0 %Normal0.0-6.0UnSelect [facility] Comment on above:Performed By: #### [id number] ####[facility] ([facility] [place], [place] [address]Bydwculvtao distribution width (RBC) [Ratio]18.6 % High11.5-15.0UnSelect Medical Specialty Hospital - CantonComment on above:Performed By: #### [id number] ####[facility] ([facility])[address] [place] [address] ERYTHROCYTE MEAN CORPUSCULAR HEMOGLOBIN CONCENTRATION (G/DL) BY TGQOZZTRN24.5 g/dLLow32.0-35.0UnSelect Medical Specialty Hospital - CantonComment on above:Performed By: #### [id number] ####[facility] ([facility])[address] [place], [place] [address]Hhomhdwxdw (Bld) [Volume fraction]29.8 %Low39.0-50.0UnSelect Medical Specialty Hospital - CantonComment on above:Performed By: #### [id number] ####[facility] ([facility])[address] [place], [place] [address]Uzicvbulah (Bld) [Mass/Vol]9.1 g/dLLow 13.0-17.0UnSelect Medical Specialty Hospital - CantonComment on above:Performed By: #### [id number] ####[facility] ([facility])[address] [place] [address]Lcvbnxwl granulocytes (Bld) [#/Vol]0.03 10*3/uLNormal0.00-0.20UnSelect Medical Specialty Hospital - CantonComment on above:Performed By: #### [id number] ####[facility] ([facility])[address] [place], [place] [address]Dnbzyrdz granulocytes/100 WBC (Bld)0.4 %Normal0.0-1.0UnSelect Medical Specialty Hospital - CantonComment on above:Performed By: #### [id number] ####[facility] ([facility])[address] [place] [address] Lymphocytes (Bld) [#/Vol]1.52 10*3/uLNormal1.20-4.00UnSelect Medical Specialty Hospital - CantonComment on above:Performed By: #### [id number] ####[facility] ([facility])[address] [place], [place] [address]Wnxihvzlnog/100 WBC (Bld)21.9 %Normal 20.0-45.0UnSelect Medical Specialty Hospital - CantonComment on above:Performed By: #### [id number] ####[facility] ([facility])[address] [place], [place] [address]TRE (RBC) [Entitic mass]27.2 xfFqyafl35.0-33.0UnSelect [facility] Comment on above:Performed By: #### [id number] ####[facility] ([facility])[address] [place], [place] [address]RIP (RBC) [Entitic vol]89.2 hTQmhvxq09.0-98.0 [facility] Hospital - Columbus SouthComment on above:Performed By: #### [id number] ####[facility] ([facility])[address] [place], [place] [address]Mwirqfrig (Bld) [#/Vol]0.70 10*3/uLNormal0.10-1.00UnSelect Medical Specialty Hospital - CantonComment on above:Performed By: #### [id number] ####[facility] ([facility])[address] [address]Pyqbftbva/100 WBC (Bld)10.1 %Normal5.0-12.0UnSelect Medical Specialty Hospital - CantonComment on above:Performed By: #### [id number] ####[facility] ([facility] [address]Lexrhlkdaxh (Bld) [#/Vol] 4.50 10*3/uLNormal1.60-7.60UnSelect Medical Specialty Hospital - CantonComment on above: Performed By: #### [id number] ####[facility] ([facility] [place] [address]Cccesrrnaep/100 WBC (Bld)65.0 %Carwmd76.0-72.0UnSelect Medical Specialty Hospital - CantonComment on above:Performed By: #### [id number] ####[facility] ([facility] [place] [address]ZGAA (PER 100 WBCS) BY AUTOMATED COUNT0.0 %Dkvjgx4TkklhtenmmSelect Medical Specialty Hospital - CantonComment on above: Performed By: #### [id number] ####[facility] ([facility] [place] [address]LGLJEWZHG (10*3/UL) IN BLOOD AUTOMATED [id number] 10*3/uLNormal 150-400UnSelect Medical Specialty Hospital - CantonComment on above:Performed By: #### [id number] ####[facility] ([facility])[address] [place] [address]KUK (Bld) [#/Vol]3.34 10*6/uLLow4.20-5.70UnSelect Medical Specialty Hospital - CantonComment on above:Performed By: #### [id number] ####[facility] ([facility] [place] [address]CAF (Bld) [#/Vol]6.93 10*3/uLNormal4.00-10.60[facility] - Columbus SouthComment on above:Performed By: #### [id number] ####[facility] ([facility])[address] [place], [place] [address]QRR w/ Auto Diffon 14-17-4668Rsscaqwfd/100 WBC (Bld)0.6 %Normal0.0-2.0[facility] Comment on above:Performed By: #### [id number] #### [facility] [address], [place] [address]Flqkvjsih/Leukocytes Auto (Bld) [Pure # fraction]0.1 E9/LNormal 0.0-0.2FAdams County Regional Medical CenterComment on above:Performed By: #### [id number] #### [facility] [address], [place] [address]Faeolzakgkx (Bld) [#/Vol]0.1 E9/LNormal0.0-0.5FAdams County Regional Medical CenterComment on above:Performed By: #### [id number] #### [facility] [address], [place] [address]Ggervbrzsop/100 WBC (Bld)1.2 %Normal0.0-8.0[facility] Memorial HospitalComment on above:Performed By: #### [id number] #### [facility] [address], [place] [address]Dmaubwgcfdd distribution width (RBC) [Ratio]20.3 %High10.9-14.2 [facility] Memorial HospitalComment on above:Performed By: #### [id number] #### [facility] [address], [place] [address]Kanqwtmrxx (Bld) [Volume fraction]29.9 %Low37.7-49.0[facility] Memorial HospitalComment on above:Performed By: #### [id number] #### [facility] [address], [place] [address]Ufsnlgjhvn (Bld) [Mass/Vol]9.8 g/dLLow13.5-17.5FAdams County Regional Medical CenterComment on above:Performed By: #### [id number] #### [facility] [address] [place] [address]Oavomfqhlmn (Bld) [#/Vol]1.3 E9/LNormal1.0-4.0[facility] Memorial HospitalComment on above:Performed By: #### [id number] #### [facility] [address] [place] [address]Fbkgxhgflyo/100 WBC (Bld)12.2 %Low14.0-50.0[facility] Memorial HospitalComment on above:Performed By: #### [id number] #### [facility] [address] [place] [address]ITJ (RBC) [Entitic mass]28.4 hjXdzgzs39.0-34.0[facility] Memorial HospitalComment on above:Performed By: #### [id number] #### [facility] [address] [place] [address]XOAL (RBC) [Mass/Vol]32.9 g/jPKfzwhr97.4-36.0[facility] Memorial HospitalComment on above:Performed By: #### [id number] #### [facility] [address] [place] [address]JJQ (RBC) [Entitic vol]86.4 tWUxhzbv12.0-100.0[facility] Memorial HospitalComment on above:Performed By: #### [id number] #### [facility] [address] [place] [address]Khiomkvmf (Bld) [#/Vol]0.8 E9/LNormal0.2-1.0[facility] Memorial HospitalComment on above:Performed By: #### [id number] #### [facility] [address] [place] [address]Xggdbfyuump (Bld) [#/Vol]8.4 E9/LHigh2.0-7.5FAdams County Regional Medical CenterComment on above:Performed By: #### [id number] #### [facility] [address] [place] [address]Rvstdtokypj/100 WBC (Bld)78.3 %High36.0-75.0[facility] Memorial HospitalComment on above:Performed By: #### [id number] #### [facility] [address] [place] [address]Kkkzjueo mean volume (Bld) [Entitic vol]8.8 fLNormal6.4-10.8 [facility] HospitalComment on above:Performed By: #### [id number] #### [facility] [address] [place] [address]Zaxiidtvm (Bld) [#/Vol]276.0 E9/UNrpvnk755.0-500.0[facility] Memorial HospitalComment on above:Performed By: #### [id number] #### [facility] [address] [place] [address]CVW (Bld) [#/Vol]3.5 E12/LLow4.3-5.9[facility] Comment on above:Performed By: #### [id number] #### [facility] [address] [place] [address]YUA corrected for nucl RBC Auto (Bld) [#/Vol]10.7 E9/LNormal 4.0-11.0[facility] Memorial HospitalComment on above:Performed By: #### [id number] #### [facility] [address] [place] [address]GNTIKJFMLObmjgld By: Lab Marianne on 17-08-2635Ptqlvtt [Mass/Vol]169 mg/rJLnfg63 - 99 mg/dLMEMORIAL H[facility] POC SubsectionComment on above:Result Comment: Notified RN/MDPKENDRICK UsernameDENDINGER, MAKENNAInvalid Interpretation Code [facility] POC SubsectionSodium [Moles/Vol]515597522 mmol/LInvalid Interpretation Code [facility] POC SubsectionSodium [Moles/Vol]025258630211 mmol/LInvalid Interpretation [facility] POC SubsectionCHEMISTRYOrdered By: SYSTEM SYSTEM on 64-93-9502Fitkd gap [Moles/Vol]12 mmol/LNormal6 - 16 mEq/LRemisol ChemCalcium [Mass/Vol]8.0 mg/dL Low8.9 - 11.1 mg/dLRemisol ChemChloride [Moles/Vol]102 mmol/ORukjog777 - 111 mmol/LRemisol ChemCO2 [Moles/Vol]26 mmol/MOgtlnu75 - 31 mmol/LRemisol Chem Creatinine [Mass/Vol]1.6 mg/dLHigh0.5 - 1.3 mg/dLRemisol MwvulGIN49 mL/min/1.73 m2Low>=59mL/min/1.73 m2Rvythga ChemGlucose [Mass/Vol]194 mg/aUEjjwxf38 - 199 mg/dLRemisol ChemPotassium [Moles/Vol]3.4 mmol/LLow3.5 - 5.3 mmol/LRemisol Chem Sodium [Moles/Vol]137 mmol/PPpwooc356 - 145 mmol/LRemisol ChemUrea nitrogen [Mass/Vol]46 mg/dLHigh5 - 21 mg/dLRemisol ChemUrea nitrogen/Creatinine [Mass ratio]29 mg/ajDwiq00 - 20Remisol ChemCOMPREHENSIVE METABOLIC PANELon 07-27-2024 Albumin [Mass/Vol]3.4 g/dLLow3.5-5.7UnSelect Medical Specialty Hospital - CantonComment on above:Performed By: #### [id number] ####[facility] (USEUM)[address] [place], [place] [address]CMJ [Catalytic activity/Vol]71 U/ZEiuwnv30-771VeogjfmnmkSelect Medical Specialty Hospital - CantonComment on above:Performed By: #### [id number] ####[facility] (USEUM)[address] [place], [place] [address]FHV [Catalytic activity/Vol]13 U/L Normal7-52UnSelect Medical Specialty Hospital - CantonComment on above:Performed By: #### [id number] ####[facility] (bTendo)[address] [place], [place] [address]Vppsy gap [Moles/Vol]13 mmol/LNormal7-20UnSelect Medical Specialty Hospital - CantonComment on above:Performed By: #### [id number] ####[facility] ([facility] [place] [address]ZPM [Catalytic activity/Vol]13 U/VNrvker65-40KqdbemltzeSelect Medical Specialty Hospital - CantonComment on above:Performed By: #### [id number] ####[facility] ([facility] [place] [address]Qudexfkhw [Mass/Vol]0.6 mg/dL Normal0.3-1.0UnSelect Medical Specialty Hospital - CantonComment on above:Performed By: #### [id number] ####[facility] ([facility] [place] [address] Calcium [Mass/Vol]8.2 mg/dLLow8.6-10.3UnSelect Medical Specialty Hospital - CantonComment on above:Performed By: #### [id number] ####[facility] ([facility] [place], [place] [address]Jmmjjyeq [Moles/Vol]103 mmol/PLmrgvn56-401LqgcsyxwbnSelect Medical Specialty Hospital - CantonComment on above:Performed By: #### [id number] ####[facility] ([facility] [place] [address]SV5 [Moles/Vol]26 mmol/LNormal 21-31UnSelect Medical Specialty Hospital - CantonComment on above:Performed By: #### [id number] ####[facility] ([facility] [place], [place] [address]Lpfzpajwwa [Mass/Vol]1.24 mg/dLNormal0.70-1.30UnSelect Medical Specialty Hospital - CantonComment on above:Performed By: #### [id number] ####[facility] ([facility] [place], [place] [address]NPZCPAFWOR FILTRATION RATE ML/MIN/1.73 SQ M.NTBHXQAEW83.7 mL/min/1.73m*2Normal>60.0UnSelect Medical Specialty Hospital - CantonComment on above: Result Comment: The [facility]???s estimated glomerular filtration rate (eGFR) will no [...] potential consequences that do not disproportionately affect anyone group of individuals.Performed By: #### [id number] ####[facility] ([facility] [place], [place] [address]Gngtzpm [Mass/Vol]126 mg/bRFydk82-893IstimpywcxSelect Medical Specialty Hospital - CantonComment on above:Performed By: #### [id number] ####[facility] ([facility] [place], [place] [address]Ksxcmiuvx [Moles/Vol]3.5 mmol/L Normal3.5-5.1UnSelect Medical Specialty Hospital - CantonComment on above:Performed By: #### [id number] ####[facility] ([facility] [place] [address] Protein [Mass/Vol]6.3 g/dLNormal6.0-8.3Un[facility] Comment on above:Performed By: #### [id number] ####[facility] ([facility] [place], [place] [address]Ftmsii [Moles/Vol]138 mmol/HSyyugd365-834BouahwryjlSelect Medical Specialty Hospital - CantonComment on above:Performed By: #### [id number] ####[facility] (BE[facility])[address] [place], [place] [address]Mtnw nitrogen [Mass/Vol] 38 mg/dLHigh7-25UnSelect Medical Specialty Hospital - CantonComment on above:Performed By: #### [id number] ####[facility] ([facility] [place] [address] UREA NITROGEN/CREATININE (MASS RATIO) IN SER/PLAS30.6NormalUniversCincinnati Children's Hospital Medical CenterComment on above:Performed By: #### [id number] ####[facility] ([place])[address] [place], [place] [address]BVRXDWXzb [id number] Hospitals TriPoint Medical CenterCONSULTNormalUniZanesville City HospitalCapillary Glucose POCon [id number] [Mass/Vol]169 mg/fBQnue99-94 [facility] HospitalComment on above:Result Comment: Notified RN/MD Performed By: #### [id number] #### [facility] [address], [place] [address]PIEMCLZRPXWqvacxy By: Loan Garces on 07-27-2024 Basophils/100 WBC (Bld)0.6 %Normal0.0 - 2.0 %Remisol HemeBasophils/Leukocytes Auto (Bld) [Pure # fraction]0.1 E9/LNormal0.0 - 0.2 E9/LRemisol HemeEosinophils (Bld) [#/Vol]0.1 E9/LNormal0.0 - 0.5 E9/LRemisol HemeEosinophils/100 WBC (Bld) 1.2 %Normal0.0 - 8.0 %Remisol HemeErythrocyte distribution width (RBC) [Ratio] 20.3 %High10.9 - 14.2 %Remisol HemeHematocrit (Bld) [Volume fraction]29.9 %Low 37.7 - 49.0 %Remisol HemeHemoglobin (Bld) [Mass/Vol]9.8 g/dLLow13.5 - 17.5 gm/dL Remisol HemeLymphocytes (Bld) [#/Vol]1.3 E9/LNormal1.0 - 4.0 E9/LRemisol Heme Lymphocytes/100 WBC (Bld)12.2 %Low14.0 - 50.0 %Remisol HemeMCH (RBC) [Entitic mass]28.4 mrRylwhg47.0 - 34.0 pgRemisol HemeMCHC (RBC) [Mass/Vol]32.9 g/dLNormal 31.4 - 36.0 gm/dLRemisol HemeMCV (RBC) [Entitic vol]86.4 aZFeteyk97.0 - 100.0 fL Remisol HemeMonocytes (Bld) [#/Vol]0.8 E9/LNormal0.2 - 1.0 E9/LRemisol Heme Monocytes/100 WBC (Bld)7.7 %Normal4.0 - 14.0 %Remisol HemeNeutrophils (Bld) [#/Vol]8.4 E9/LHigh2.0 - 7.5 E9/LRemisol HemeNeutrophils/100 WBC (Bld)78.3 %High 36.0 - 75.0 %Remisol HemePlatelet mean volume (Bld) [Entitic vol]8.8 fLNormal6.4 - 10.8 fLRemisol HemePlatelets (Bld) [#/Vol]276.0 E9/KBgmctc279.0 - 500.0 E9/L Remisol HemeRBC (Bld) [#/Vol]3.5 E12/LLow4.3 - 5.9 E12/LRemisol HemeWBC corrected for nucl RBC Auto (Bld) [#/Vol]10.7 E9/LNormal4.0 - 11.0 E9/LRemisol HemeHPon 07-80-4760KJWnsswtYjydheoxrw of Toledo Medical CenterHPNormalUniversity Wright-Patterson Medical CenterInterdisciplinary Note - Case Manageron 07-27-2024 Interdisciplinary Note - Case ManagerInterdisciplinary Note - Glaze Mixer CRM to room 307 DC plan now is transfer to [facility] today, they have open bed. There is a concern for cauda equina Herw was attached note from previous DC planning Patient is awake, alert and oriented. Patient is from home with his partner Jomar. Patient verified his PCP, DME and insurance. Patient is an inpatient, IMM complete and this gets reviewed. Patient came in with Cellulitis. Also treating his HF. Patient is assigned to Zuri BARRY, see notes. Patient has wound and neuro on case. Patient has his needed DME. He is not current with any care. Therapy recs SNF. Patient has spken some to his family about SNF now his choices are 1. [facility]. [facility]. [facility] and or [facility]. Patient would require a 3 M stay. Patient was provided CRM contact, white board updated. CRM followingNormalMccullough-Hyde Memorial HospitalComment on above:Result Comment: Electronically Signed By: Valentina Peoples\.domenic\Date and Time Signed: 07/27/24 09:43 EDTMAGNESIUMon 51-71-7092Gcbkwgfdv [Mass/Vol]2.0 mg/dLNormal1.9-2.7UnSelect Medical Specialty Hospital - CantonComment on above:Performed By: #### [id number] ####[facility] ([facility] [place], [place] [address]VT CERVICAL SPINE WO CONTRASTon 72-50-2042CM CERVICAL SPINE WO CONTRASTInvalid Interpretation CodeUnSelect Medical Specialty Hospital - CantonNURSNOTEon 04-10-0134AJDYZJOARi errorNormalUniversity Wright-Patterson Medical CenterNURSNOTEWriter informed admitting doctor that patient arrived from previous hospital.NormalUnSelect Medical Specialty Hospital - CantonPOCT GLUCOSE METER UNSOLICITED RESULTSon 31-34-3524Tsddhvw [Mass/Vol]181 mg/dLHigh 70-105UnSelect Medical Specialty Hospital - CantonComment on above:Order Comment: Waived Testing in the ED is performed under the ED CLIA certificate #[id number].Result Comment: bacresPerformed By: #### [id number] ####[facility] ([facility] [place], [place] [address]Jzqehgf [Mass/Vol]165 mg/aSBsfh95-369MmkylratwtSelect Medical Specialty Hospital - CantonComment on above:Order Comment: Waived Testing in the ED is performed under the ED CLIA certificate #[id number].Result Comment: [email or web address] Performed By: #### [id number] ####[facility] ([facility] [place], [place] [address]rMSMqu 31-65-4986lGRN86 mL/min/1.73 m2Low>=59Fisher Holy Cross HospitalComment on above:Performed By: #### [id number] #### [facility] [address] Tangela RamírezMAGNOLIA SPRINGS, [place] [address]RLOjh 54-17-0657Cbsje gap [Moles/Vol]13 mmol/LNormal6-16Mccullough-Hyde Memorial HospitalComment on above:Performed By: #### [id number] #### [facility] [address], [place] [address]Opchaap [Mass/Vol]8.6 mg/dLLow8.9-11.1FAdams County Regional Medical CenterComment on above:Performed By: #### [id number] #### [facility] [address], [place] [address]Cfmhwbpl [Moles/Vol]101 mmol/MTneltz267-821LcakbdMccullough-Hyde Memorial HospitalComment on above:Performed By: #### [id number] #### [facility] [address], [place] [address]SW7 [Moles/Vol]28 mmol/YPkupsg82-44LvtoypMccullough-Hyde Memorial Hospital Comment on above:Performed By: #### [id number] #### [facility] [address], [place] [address]Hrpbqlprja [Mass/Vol]1.2 mg/dLNormal0.5-1.3FAdams County Regional Medical CenterComment on above:Performed By: #### [id number] #### [facility] [address], [place] [address]Rpdawqh [Mass/Vol]110 mg/fHRffiss65-269SmwvlzMccullough-Hyde Memorial HospitalComment on above:Performed By: #### [id number] #### [facility] [address], [place] [address]Gkwjmaqhu [Moles/Vol]4.0 mmol/LNormal3.5-5.3FAdams County Regional Medical CenterComment on above:Performed By: #### [id number] #### [facility] [address], [place] [address]Qztxsl [Moles/Vol]138 mmol/DXtrmci999-542WjduugMccullough-Hyde Memorial HospitalComment on above:Performed By: #### [id number] #### [facility] [address], [place] [address]Haqu nitrogen [Mass/Vol]31 mg/dLHigh5-21M[facility]ough-Hyde Memorial HospitalComment on above:Performed By: #### [id number] #### [facility] [address] [place] [address]Ejpe nitrogen/Creatinine [Mass ratio]26 No UwyfgLqmu76-34WamirzMccullough-Hyde Memorial HospitalComment on above:Performed By: #### [id number] #### [facility] [address] [place] [address]BXZ w/ Auto Diffon 13-55-2680Lwmomwrbc/100 WBC (Bld)0.7 %Normal 0.0-2.0Mccullough-Hyde Memorial HospitalComment on above:Performed By: #### [id number] #### [facility] [address] [place] [address]Hmzkhbvpg/Leukocytes Auto (Bld) [Pure # fraction]0.1 E9/LNormal 0.0-0.2FAdams County Regional Medical CenterComment on above:Performed By: #### [id number] #### [facility] [address] [place] [address]Tzhkenqumxk (Bld) [#/Vol]0.2 E9/LNormal0.0-0.5FAdams County Regional Medical CenterComment on above:Performed By: #### [id number] #### [facility] [address] [place] [address]Dksxefuwppc/100 WBC (Bld)2.1 %Normal0.0-8.0Mccullough-Hyde Memorial HospitalComment on above:Performed By: #### [id number] #### [facility] [address] [place] [address]Rwcvsddbpxs distribution width (RBC) [Ratio]19.1 %High10.9-14.2 [facility]-Hyde Memorial HospitalComment on above:Performed By: #### [id number] #### [facility] [address] [place] [address]Efpohiudtw (Bld) [Volume fraction]31.7 %Low37.7-49.0Mccullough-Hyde Memorial HospitalComment on above:Performed By: #### [id number] #### [facility] [address] [place] [address]6Dxhzpznouc (Bld) [Mass/Vol]10.4 g/dLLow13.5-17.5FAdams County Regional Medical CenterComment on above:Performed By: #### [id number] #### [facility] [address] [place] [address]Jsdsjtqrsak (Bld) [#/Vol]2.0 E9/LNormal1.0-4.0M[facility]ullough-Hyde Memorial HospitalComment on above:Performed By: #### [id number] #### [facility] [address] [place] [address]Bpxttaqxypk/100 WBC (Bld)26.1 %Sxylsc46.0-50.0M[facility]ough-Hyde Memorial HospitalComment on above:Performed By: #### [id number] #### [facility] [address] [place] [address]XWA (RBC) [Entitic mass]27.9 llKzguxa19.0-34.0M[facility]-Hyde Memorial HospitalComment on above:Performed By: #### [id number] #### [facility] [address] [place] [address]FWQQ (RBC) [Mass/Vol]32.7 g/yFIewgnc81.4-36.0M[facility]-Hyde Memorial HospitalComment on above:Performed By: #### [id number] #### [facility] [address] [place] [address]30[address]WDU (RBC) [Entitic vol]85.4 kSCnthbg57.0-100.0M[facility]-Hyde Memorial HospitalComment on above:Performed By: #### [id number] #### [facility] [address] [place] [address] 02[address]Gregodixv (Bld) [#/Vol]0.7 E9/LNormal0.2-1.0M[facility]ull[facility]-Hyde Memorial HospitalComment on above:Performed By: #### [id number] #### [facility] [address] [place] [address] 15360Lhzdqznlczp (Bld) [#/Vol]4.9 E9/LNormal2.0-7.5FAdams County Regional Medical CenterComment on above:Performed By: #### [id number] #### [facility] [address] [place] [address] 09454Vftafzxtoxi/100 WBC (Bld)62.4 %Udepdk83.0-75.0M[facility]-Hyde Memorial HospitalComment on above:Performed By: #### [id number] #### [facility] [address] [place] [address] 46953Mxtcylni mean volume (Bld) [Entitic vol]8.4 fLNormal6.4-10.8 [facility]Hy[facility] Memorial HospitalComment on above:Performed By: #### [id number] #### [facility] [address] [place] [address]Kelbjqgqi (Bld) [#/Vol]282.0 E9/ZDvgtvu608.0-500.0M[facility]-Hyde Memorial HospitalComment on above:Performed By: #### [id number] #### [facility] [address] [place] [address] 149[address]MNU (Bld) [#/Vol]3.7 E12/LLow4.3-5.9[facility] Comment on above:Performed By: #### [id number] #### [facility] [address] [place] [address] 310[address]SEX corrected for nucl RBC Auto (Bld) [#/Vol]7.8 E9/LNormal 4.0-11.0M[facility]-Hyde Memorial HospitalComment on above:Performed By: #### [id number] #### [facility] [address] [place] [address] 77[address]BVHMRMMJGObqwopl By: Arnie Lopes on 62-51-0981Wfezkdf [Mass/Vol]135 mg/yJKold58 - 99 mg/dLMEMORIAL HOS[facility] POC SubsectionComment on above:Result Comment: Notified RN/MDPOC UsernameMOON, SHARONInvalid Interpretation CodeMEMORIAL HOSPITAL [facility] POC SubsectionSodium [Moles/Vol][id number] mmol/LInvalid Interpretation Code [facility] POC SubsectionSodium [Moles/Vol]855820482 mmol/LInvalid Interpretation Code [facility] POC SubsectionGlucose [Mass/Vol]186 mg/fSFqin94 - 99 mg/dLMEMORIAL HOSPITAL OF [facility] POC SubsectionComment on above:Result Comment: Notified RN/MATTHEWOC UsernamJeremias Rooneyvalid Interpretation CodeMEMORIAL HOSPITAL [facility] POC SubsectionSodium [Moles/Vol] mmol/LInvalid Interpretation CodeMEMORIAL [facility]OS[facility] POC SubsectionSodium [Moles/Vol]490395677 mmol/LInvalid Interpretation CodeMEMORIAL HOSP[facility] POC Subsection CHEMISTRYOrdered By: SYSTEM SYSTEM on 27-63-9431Cwdnxujim (Vitamin B12) [Mass/Vol]311 pg/tNIygcqf05 - 1500 pg/mLRemisol ChemAnion gap [Moles/Vol]13 mmol/LNormal6 - 16 mEq/LRemisol ChemCalcium [Mass/Vol]8.6 mg/dLLow8.9 - 11.1 mg/dLRemisol ChemChloride [Moles/Vol]101 mmol/UHgeerc727 - 111 mmol/LRemisol ChemCO2 [Moles/Vol]28 mmol/EHtqamd92 - 31 mmol/LRemisol ChemCreatinine [Mass/Vol]1.2 mg/dLNormal0.5 - 1.3 mg/dLRemisol HhdfdPZS77 mL/min/1.73 r5Fwqwmu >=59mL/min/1.73 p6Rkuyqnj ChemGlucose [Mass/Vol]110 mg/oVCvuynn13 - 199 mg/dL Remisol ChemPotassium [Moles/Vol]4.0 mmol/LNormal3.5 - 5.3 mmol/LRemisol Chem Sodium [Moles/Vol]138 mmol/QApjiyw395 - 145 mmol/LRemisol ChemUrea nitrogen [Mass/Vol]31 mg/dLHigh5 - 21 mg/dLRemisol ChemUrea nitrogen/Creatinine [Mass ratio]26 mg/zsXawy13 - 20Remisol ChemCapillary Glucose POCon 29-86-8188Xxsswme [Mass/Vol]135 mg/oTNmwu35-66TdweohMccullough-Hyde Memorial HospitalComment on above:Result Comment: Notified RN/MDPerformed By: #### [id number] #### [facility] [address] [place] [address]57[address]Erlcxiw [Mass/Vol]186 mg/kLLwvf45-12GceirhMccullough-Hyde Memorial Hospital Comment on above:Result Comment: Notified RN/MDPerformed By: #### [id number] #### [facility] [address], [place] [address]Omgsotd [Mass/Vol]136 mg/eLIfix98-12YbsqubMccullough-Hyde Memorial Hospital Comment on above:Result Comment: No Coverage GivenPerformed By: #### [id number] #### [facility] [address] [place] [address] 598[address]Xcldgnh [Mass/Vol]137 mg/pWLdvu40-07BigibhMccullough-Hyde Memorial Hospital Comment on above:Result Comment: Notified RN/MDPerformed By: #### [id number] #### [facility] [address] [place] [address]Uyqcth Queryon 37-18-4536Lkocfn QueryCoding Query From: Tessie Can RN To: Katelyn GILBERT, Mark Tavares; Sent: 07/26/2024 13:48:15 EDT ! Subject: Coding Query Due Date/Time: 07/27/2024 13:47:00 EDT Caller Name: MATT WATERMAN; Caller Number: Romaine , Based on the documentation in the medical record, this patient has undergone Wound Care and/or Debridement of a wound. The following is also documented in the medical record: 07/25 Procedure note: Technique After obtaining informed consent patient was positioned in the standing position at the request and the stage III coccygeal wound was identified.The wound measured 4 x 1 x 0.3 cm with no tunneling or undermining identified. There was fibrinous exudate noted in the base of the wound. The wound was debrided using a curette. It was until there was a small punctate hemorrhage noting healthy tissue. Hemostasis was achieved by holding pressure. A clean dressing was applied. The patient tolerated the procedure without difficulty Based on your medical judgment, can you further clarify the precise type, margins, instruments, region, site and depth of wound debridement utilized in this visit? Select all that apply: Type: Excisional: [___]Excision (cutting away or off without replacement) Non-excisional: [___]Extraction (pulling or stripping by force) Depth: (deepest layer of debridement) [___]Skin [___]Fascia [___]Muscle [___]Subcutaneous tissue [___]Other: In responding to this request, please exercise your independent professional judgement. The fact that a question is asked does not imply that any particular answer is desired or expected. Thank you!tessie [id number]-Hyde Memorial HospitalExtra [place] 31-83-4971FM Tube CollectedYesInvalid Interpretation Code [facility] Memorial HospitalComment on above:Performed By: #### [id number] #### [facility] [address] [place] [address] 447[address]HMEYPUIPECKnfmkzv By: SYSTEM SYSTEM on 29-53-5301Evlxsjrdo/100 WBC (Bld)0.7 %Normal0.0 - 2.0 %Remisol HemeBasophils/Leukocytes Auto (Bld) [Pure # fraction]0.1 E9/LNormal0.0 - 0.2 E9/LRemisol HemeEosinophils (Bld) [#/Vol]0.2 E9/LNormal0.0 - 0.5 E9/LRemisol HemeEosinophils/100 WBC (Bld)2.1 %Normal0.0 - 8.0 %Remisol HemeErythrocyte distribution width (RBC) [Ratio]19.1 %High10.9 - 14.2 %Remisol HemeHematocrit (Bld) [Volume fraction]31.7 %Low37.7 - 49.0 % Remisol HemeHemoglobin (Bld) [Mass/Vol]10.4 g/dLLow13.5 - 17.5 gm/dLRemisol Heme Lymphocytes (Bld) [#/Vol]2.0 E9/LNormal1.0 - 4.0 E9/LRemisol HemeLymphocytes/100 WBC (Bld)26.1 %Ldksea76.0 - 50.0 %Remisol HemeMCH (RBC) [Entitic mass]27.9 pg Vjffbb12.0 - 34.0 pgRemisol HemeMCHC (RBC) [Mass/Vol]32.7 g/uQTlpkkc89.4 - 36.0 gm/dLRemisol HemeMCV (RBC) [Entitic vol]85.4 vTVvhhmc77.0 - 100.0 fLRemisol Heme Monocytes (Bld) [#/Vol]0.7 E9/LNormal0.2 - 1.0 E9/LRemisol HemeMonocytes/100 WBC (Bld)8.7 %Normal4.0 - 14.0 %Remisol HemeNeutrophils (Bld) [#/Vol]4.9 E9/LNormal 2.0 - 7.5 E9/LRemisol HemeNeutrophils/100 WBC (Bld)62.4 %Izaqjl22.0 - 75.0 % Remisol HemePlatelet mean volume (Bld) [Entitic vol]8.4 fLNormal6.4 - 10.8 fL Remisol HemePlatelets (Bld) [#/Vol]282.0 E9/SYctnav558.0 - 500.0 E9/LRemisol HemeRBC (Bld) [#/Vol]3.7 E12/LLow4.3 - 5.9 E12/LRemisol HemeWBC corrected for nucl RBC Auto (Bld) [#/Vol]7.8 E9/LNormal4.0 - 11.0 E9/LRemisol Heme Interdisciplinary Note - Case Manageron 59-44-7147Zzkrjzpodxbmpbobt Note - Case ManagerInterdisciplinary Note - Glaze Mixer CRM to room 307 Patient is awake, alert and oriented. Patient is from home with his partner Jomar. Patient verified his PCP, DME and insurance. Patient is an inpatient, IMM complete and this gets reviewed. Patient came in with Cellulitis. Also treating his HF. Patient is assigned to Zuri BARRY, see notes. Patient has wound and neuro on case. Patient has his needed DME. He is not current with any care. Therapy recs SNF. Patient has spken some to his family about SNF now his choices are [facility]. [facility]. [facility]. [facility] and or [facility]. Patient would require a 3 M stay. Patient was provided CRM contact, white board updated. CRM following DC date TBD, CRM will get updates at 10 AM from hospitalist. [facility] accepted due to Concern for cauda equina No bed yetNoMercy Health Clermont HospitalComment on above:Result Comment: Electronically Signed By: Valentina Peoples\.br\Date and Time Signed: 07/26/24 13:28 EDTInterdisciplinary Note - Case ManagerInterdisciplinary Note - Glaze Mixer CRM to room 307 Patient is awake, alert and oriented. Patient is from home with his partner Jomar. Patient verified his PCP, DME and insurance. Patient is an inpatient, IMM complete and this gets reviewed. Patient came in with Cellulitis. Also treating his HF. Patient is assigned to Zuri BARRY, see notes. Patient has wound and neuro on case. Patient has his needed DME. He is not current with any HH care. Therapy recs SNF. Patient has spken some to his family about SNF now his choices are [facility]. [facility]. [facility]. [facility] and or [facility]. Patient would require a 3 M stay. Patient was provided CRM contact, white board updated. CRM following DC date TBD, CRM will get updates at 10 AM from hospitalist.[facility] HospitalComment on above:Result Comment: Electronically Signed By: Valentina Peoples\.br\Date and Time Signed: 07/26/24 09:44 EDTMRI Spine Thoracic w/ + w/o Contraston 97-02-9363PJZ Spine Thoracic w/ + w/o ContrastExam Date/Time: 07/26/2024 12:25 EDT Reason for Exam: [...] Moderate hypertrophic facet and ligamentum flavum changes T11-T12, which results in javw-xo-wpgrfarx central spinal stenosis and marked right neural foraminal narrowing. No other significant central spinal stenosis, neural foraminal narrowing, or significant disc protrusions. Contrast: Vueway Contrast amount in ml's: 10.00 Report Ordering Provider: Magdi John FINAL REPORT Dictated: 07/26/2024 2:39 pm Daniel Vincent MD Signed (Electronic Signature): 07/26/2024 2:39 pm Signed by: Daniel Vincent MD Transcribed by: AMBROCIO Technologist: VishalMccullough-Hyde Memorial HospitalNo Panel InformationOrdered By: Margret Ambriz on 04-85-9457ESMx WBC's seen. Occasional epithelial cells Occasional Gram Positive RodsSelect Medical Cleveland Clinic Rehabilitation Hospital, AvonWound Culture Continuing incubationFishGreater Baltimore Medical CenterNo Panel InformationOrdered By: ANGPROCESSSERVER MICROBIOLOGY on 08-40-0499Mgpia Culture CharcoalNo growth at 1 day. Final to follow at 7 days.[facility], AvonBlood Culture CharcoalNo growth at 1 day. Final to follow at 7 days.[facility], AvonOrders Onlyon 03-21-8487Swpmnv [id number] Matt Wolff 1960 M Date Provider Department Center 07/26/2024 Bianka4-RUDY BARR [facility] RHEUM [facility]ila [facility] Family History Family history unknown: YesNormalUniversity of Saint David'S Round Rock Medical CenterVit B12on 70-01-6708Pdyhcyjam (Vitamin B12) [Mass/Vol]311 pg/sJXkimvz95-7175VlhjanMccullough-Hyde Memorial HospitalComment on above:Performed By: #### [id number] #### [facility] [address], [place] [address]uNWMwr 97-40-9382dOVM08 mL/min/1.73 y3Dqwucx>=59M[facility]-Hyde Memorial HospitalComment on above:Performed By: #### [id number] #### [facility] [address], [place] [address]sw 42-70-409464Qndgknf's spouse requesting a call back states patient has been admitted to [facility] in [place] due to Auto immune issue. Thank Peoples HospitalBMPon 33-28-9044Nhyaj gap [Moles/Vol]9 mmol/LNormal6-16[facility] Memorial HospitalComment on above: Performed By: #### [id number] #### [facility] [address], [place] [address]Siexvys [Mass/Vol]8.5 mg/dLLow8.9-11.1FAdams County Regional Medical CenterComment on above:Performed By: #### [id number] #### [facility] [address], [place] [address]Goitwoqn [Moles/Vol]105 mmol/IQtvcgz872-077AiclmnMccullough-Hyde Memorial HospitalComment on above:Performed By: #### [id number] #### [facility] [address], [place] [address]LJ3 [Moles/Vol]27 mmol/XPbhomb22-34LokkutMccullough-Hyde Memorial Hospital Comment on above:Performed By: #### [id number] #### [facility] [address], [place] [address]Raehhyveja [Mass/Vol]0.8 mg/dLNormal0.5-1.3FAdams County Regional Medical CenterComment on above:Performed By: #### [id number] #### [facility] [address], [place] [address]Banvklp [Mass/Vol]124 mg/eCMhqflq29-819HysbtkMccullough-Hyde Memorial HospitalComment on above:Performed By: #### [id number] #### [facility] [address], [place] [address]Mpnirrbhv [Moles/Vol]3.4 mmol/LLow3.5-5.3FAdams County Regional Medical CenterComment on above:Performed By: #### [id number] #### [facility] [address], [place] [address]Rziazh [Moles/Vol]138 mmol/RRrpkak472-773IzhgbnMccullough-Hyde Memorial HospitalComment on above:Performed By: #### [id number] #### [facility] [address], [place] [address]Shqv nitrogen [Mass/Vol]25 mg/dLHigh5-21[facility] Memorial HospitalComment on above:Performed By: #### [id number] #### [facility] [address], [place] [address]Xyhx nitrogen/Creatinine [Mass ratio]31 No RbjhtVpvj96-13RfawvvMccullough-Hyde Memorial HospitalComment on above:Performed By: #### [id number] #### [facility] [address], [place] [address]FEY w/ Auto Diffon 18-74-0552Nkqohhsez/100 WBC (Bld)0.8 %Normal 0.0-2.0[facility]Hyde Memorial HospitalComment on above:Performed By: #### [id number] #### [facility] [address] [place] [address]Viwbvbpba/Leukocytes Auto (Bld) [Pure # fraction]0.1 E9/LNormal 0.0-0.2FAdams County Regional Medical CenterComment on above:Performed By: #### [id number] #### [facility] [address] [place] [address] 46[address]Entxpqnrugo (Bld) [#/Vol]0.1 E9/LNormal0.0-0.5FAdams County Regional Medical CenterComment on above:Performed By: #### [id number] #### [facility] [address], [place] [address]Uhmvptomdgq/100 WBC (Bld)2.1 %Normal0.0-8.0[facility]de Memorial HospitalComment on above:Performed By: #### [id number] #### [facility] [address] [place] [address] 427[address]Nlnzbywepkb distribution width (RBC) [Ratio]18.3 %High10.9-14.2 [facility] Memorial HospitalComment on above:Performed By: #### [id number] #### [facility] [address] [place] [address]Rigyyzcoaf (Bld) [Volume fraction]28.6 %Low37.7-49.0[facility]Hyde Memorial HospitalComment on above:Performed By: #### [id number] #### [facility] [address] [place] [address] 366[address]Jsvuwdwwjz (Bld) [Mass/Vol]9.4 g/dLLow13.5-17.5FAdams County Regional Medical CenterComment on above:Performed By: #### [id number] #### [facility] [address] [place] [address] 55522Rqcvdzvvzvq (Bld) [#/Vol]1.9 E9/LNormal1.0-4.0[facility] Memorial HospitalComment on above:Performed By: #### [id number] #### [facility] [address] [place] [address] 53859Xygjoqcdhds/100 WBC (Bld)28.0 %Aksidg54.0-50.0[facility] Memorial HospitalComment on above:Performed By: #### [id number] #### [facility] [address] [place] [address] 88328NTA (RBC) [Entitic mass]27.9 hyYufuaj61.0-34.0[facility] Memorial HospitalComment on above:Performed By: #### [id number] #### [facility] [address] [place] [address] 00836JMER (RBC) [Mass/Vol]33.0 g/aTElwwni17.4-36.0[facility] Memorial HospitalComment on above:Performed By: #### [id number] #### [facility] [address] [place] [address]AXJ (RBC) [Entitic vol]84.5 bKQjurko40.0-100.0[facility]-Hyde Memorial HospitalComment on above:Performed By: #### [id number] #### [facility] [address] [place] [address] 65845Sztjvxqhz (Bld) [#/Vol]0.4 E9/LNormal0.2-1.0[facility] HospitalComment on above:Performed By: #### [id number] #### [facility] [address] [place] [address] 62611Llinzwbrcjp (Bld) [#/Vol]4.4 E9/LNormal2.0-7.5FAdams County Regional Medical CenterComment on above:Performed By: #### [id number] #### [facility] [address] [place] [address] 51723Xhmtwrnauht/100 WBC (Bld)63.8 %Opisdx74.0-75.0[facility] HospitalComment on above:Performed By: #### [id number] #### [facility] [address] [place] [address] 84224Fmoghefv037.0 E9/ROpcnyu567.0-500.0[facility] Comment on above:Performed By: #### [id number] #### [facility] [address] [place] [address] 24378Pnqsjvsi mean volume (Bld) [Entitic vol]8.0 fLNormal6.4-10.8 [facility] HospitalComment on above:Performed By: #### [id number] #### [facility] [address] [place] [address] 81304USD (Bld) [#/Vol]3.4 E12/LLow4.3-5.9[facility] Comment on above:Performed By: #### [id number] #### [facility] [address] [place], [place] [address]LYU corrected for nucl RBC Auto (Bld) [#/Vol]6.9 E9/LNormal 4.0-11.0[facility] HospitalComment on above:Performed By: #### [id number] #### [facility] [address] [place], [place] [address]CKGVZBZJWIkrxbeg By: SYSTEM SYSTEM on 00-27-6949Zgecj gap [Moles/Vol]9 mmol/LNormal6 - 16 mEq/LRemisol ChemCalcium [Mass/Vol]8.5 mg/dLLow 8.9 - 11.1 mg/dLRemisol ChemChloride [Moles/Vol]105 mmol/WXeyhus195 - 111 mmol/L Remisol ChemCO2 [Moles/Vol]27 mmol/PFynkzc72 - 31 mmol/LRemisol ChemCreatinine [Mass/Vol]0.8 mg/dLNormal0.5 - 1.3 mg/dLRemisol JpejxJFT17 mL/min/1.73 p9Cxpnwv >=59mL/min/1.73 d3Ccnhmzb ChemGlucose [Mass/Vol]124 mg/oUXvkuja63 - 199 mg/dL Remisol ChemPotassium [Moles/Vol]3.4 mmol/LLow3.5 - 5.3 mmol/LRemisol ChemSodium [Moles/Vol]138 mmol/QIccjaq182 - 145 mmol/LRemisol ChemUrea nitrogen [Mass/Vol] 25 mg/dLHigh5 - 21 mg/dLRemisol ChemUrea nitrogen/Creatinine [Mass ratio]31 mg/hmHapj40 - 20Remisol ChemCapillary Glucose POCon 36-77-8271Xdnqabn [Mass/Vol] 165 mg/uBUzse06-74AsthotMccullough-Hyde Memorial HospitalComment on above:Result Comment: Notified RN/MDPerformed By: #### [id number] #### [facility] [address] [place], [place] [address]Fodinhp [Mass/Vol]173 mg/cZAaln96-54KarqoxMccullough-Hyde [facility] Hospital Comment on above:Result Comment: Notified RN/MDPerformed By: #### [id number] #### [facility] [address], [place] [address]Zwdxkso [Mass/Vol]136 mg/uLBblq53-38FtudmgMccullough-Hyde Memorial Hospital Comment on above:Result Comment: Notified RN/MDPerformed By: #### [id number] #### [facility] [address], [place] [address]Bsldame [Mass/Vol]133 mg/iDGuqh73-42JinwonMccullough-Hyde Memorial Hospital Comment on above:Result Comment: Notified RN/MDPerformed By: #### [id number] #### [facility] [address] [place], [place] [address]INQYWBSXRMLxaovbn By: SYSTEM SYSTEM on 98-77-6006Rwxrwraqn/100 WBC (Bld)0.8 %Normal0.0 - 2.0 %Remisol HemeBasophils/Leukocytes Auto (Bld) [Pure # fraction]0.1 E9/LNormal0.0 - 0.2 E9/LRemisol HemeEosinophils (Bld) [#/Vol]0.1 E9/LNormal0.0 - 0.5 E9/LRemisol HemeEosinophils/100 WBC (Bld)2.1 %Normal0.0 - 8.0 %Remisol HemeErythrocyte distribution width (RBC) [Ratio]18.3 %High10.9 - 14.2 %Remisol HemeHematocrit (Bld) [Volume fraction]28.6 %Low37.7 - 49.0 % Remisol HemeHemoglobin (Bld) [Mass/Vol]9.4 g/dLLow13.5 - 17.5 gm/dLRemisol Heme Lymphocytes (Bld) [#/Vol]1.9 E9/LNormal1.0 - 4.0 E9/LRemisol HemeLymphocytes/100 WBC (Bld)28.0 %Iodcin74.0 - 50.0 %Remisol HemeMCH (RBC) [Entitic mass]27.9 pg Tjxomx40.0 - 34.0 pgRemisol HemeMCHC (RBC) [Mass/Vol]33.0 g/uAWzmsvl13.4 - 36.0 gm/dLRemisol HemeMCV (RBC) [Entitic vol]84.5 cYHftiao89.0 - 100.0 fLRemisol Heme Monocytes (Bld) [#/Vol]0.4 E9/LNormal0.2 - 1.0 E9/LRemisol HemeMonocytes/100 WBC (Bld)5.3 %Normal4.0 - 14.0 %Remisol HemeNeutrophils (Bld) [#/Vol]4.4 E9/LNormal 2.0 - 7.5 E9/LRemisol HemeNeutrophils/100 WBC (Bld)63.8 %Jiinrw47.0 - 75.0 % Remisol QcxeMolrocjd033.0 E9/ASrvpqk141.0 - 500.0 E9/LRemisol HemePlatelet mean volume (Bld) [Entitic vol]8.0 fLNormal6.4 - 10.8 fLRemisol HemeRBC (Bld) [#/Vol] 3.4 E12/LLow4.3 - 5.9 E12/LRemisol HemeWBC corrected for nucl RBC Auto (Bld) [#/Vol]6.9 E9/LNormal4.0 - 11.0 E9/LRemisol HemeInterdisciplinary Note - Case Manageron 33-84-9902Srvlwdqwnjgmzyvbw Note - Case ManagerInterdisciplinary Note - Glaze Mixer CRM to room 307 Patient is awake, alert and oriented. Patient is from home with his partner Jomar. Patient verified his PCP, DME and insurance. Patient is an inpatient, IMM completed. Patient came in with Cellulitis. Also treating his HF. Patient is assigned to Zuri BARRY, see notes. Patient has wound consults. Patient has his needed DME. He is not current with any care. Therapy recs SNF. He is not sure if he wants SNF and wants to speak with his family. If he does then his choices would be 1. [facility] and or3 [facility]. Patient would require a 3 M stay. Patient was provided CRM contact, bob board updated. CRMfollowing DC date TBD, CRM will get updates at 10 AM from hospitalist. [facility] no beds until end of week or longer [facility] has beds and are reviewingNormalFisher Fajardo Medical CenterComment on above:Result Comment: Electronically Signed By: Valentina Peoples\.br\Date and Time Signed: 07/25/24 13:35 EDTInterdisciplinary Note - Glaze Mixer Interdisciplinary Note - Glaze Mixer CRM to room 307 Patient is awake, alert and oriented. Patient is from home with his partner Jomar. Patient verified his PCP, DME and insurance. Patient is an inpatient, IMM completed. Patient came in with Cellulitis. Also treating his HF. Patient is assigned to Zuri BARRY, see notes. Patient has wound consults. Patient has his needed DME. He is not current with any HH care. Therapy recs SNF. He is not sure if he wants SNF and wants to speak with his family. If he does then his choices would be [facility]. [facility] and or3 [facility]. Patient would require a 3 M stay. Patient was provided CRM contact, white board updated. CRMfollowing DC date TBD, CRM will get updates at 10 AM from hospitalist.[facility] HospitalComment on above:Result Comment: Electronically Signed By: Valentina Peoples\.br\Date and Time Signed: 07/25/24 09:44 EDTMRI Spine Lumbar w/o Contraston 75-12-8320YAN Spine Lumbar w/o ContrastExam Date/Time: 07/25/2024 11:50 EDT Reason for Exam: Radiculopathy Report IMPRESSION: LUMBAR SPONDYLOSIS AND DISC DISEASE, DESCRIBED IN DETAIL. EXAM: MRI Spine Lumbar w/o Contrast DATE: 07/25/2024 10:57 AM CLINICAL HISTORY: Radiculopathy. Technologist Comments: pt c/o losing feeling in bilat lower extremities getting worse no injury. COMPARISON: None available. TECHNIQUE: Multiplanar MR imaging of the lumbar spine was performed without contrast. FINDINGS: The spine is visualized from T11-12 through S2, on the diagnostic sagittal sequences. Bone marrow signal/fracture: Unremarkable. Alignment: Lumbar lordosis and alignment are maintained. Conus: The conus is within normal limits of signal intensity and morphology. Paraspinal soft tissues: The visualized soft tissues are unremarkable. Lower thoracic spine: No central spinal stenosis or neural foraminal narrowing. L1-2: Minimal diffuse disc bulging with a central annular tear, and mild hypertrophic facet and ligamentum flavum changes. No central spinal stenosis or neural foraminal narrowing. L2-3: Minimal diffuse disc bulging with a central annular tear, mild hypertrophic facet and ligamentum flavum changes, and mild epidural lipomatosis, which results in mild central spinal stenosis. No significant neural foraminal narrowing. L3-4: Mild posterolateral endplate osteophytosis with associated broad-based disc protrusion, mild hypertrophic facet changes, and mild epidural lipomatosis, which results in mild central spinal stenosis and mild to moderate neural foraminal narrowing, greater on the right. L4-5: Mild to moderate posterolateral endplate osteophytosis with associated broad-based disc protrusion, moderate to marked hypertrophic facet changes, and mild epidural lipomatosis, which results in moderate to marked central spinal stenosis and moderate neural foraminal narrowing, greater on the left. L5-1: Mild to moderate posterolateral endplate osteophytosis with associated Report broad-based disc protrusion and central annular tear, and mild to moderate hypertrophic facet changes,, which results in moderate to marked left and mild right neural foraminal narrowing. There is no central spinal stenosis. Sacrum and iliac wings: Unremarkable. Ordering Provider: Zuri Almendarez FINAL REPORT Dictated: 07/25/2024 1:11 pm Daniel Vincent MD Signed (Electronic Signature): 07/25/2024 1:11 pm Signed by: Daniel Vincent MD Transcribed by: AMBROCIO Technologist: [facility]IAMer[facility] Lower Extremity Venous Duplex Insufficiency Bilaton 22-99-9222JH Lower Extremity Venous Duplex Insufficiency BilatExam Date/Time: 07/25/2024 14:13 EDT Reason for Exam: Vascular insufficiency Report IMPRESSION: NO DVT OF EITHER LOWER EXTREMITY IDENTIFIED. PARTIALLY OCCLUDING MILDLY ECHOGENIC SUPERFICIAL VENOUS THROMBOSIS BOTH PROXIMAL SMALL SAPHENOUS VEINS. REFLUX NOTED WITHIN THE RIGHT GREATER SAPHENOUS VEIN, NOTED. EXAM: US Lower Extremity Venous Duplex Insufficiency Bilat DATE: 07/25/2024 11:52 AM CLINICAL HISTORY: Vascular insufficiency. Technologist Comments: non healing wound rt foot, all toes amputated, pt states 9 sx on rt foot x 2yrs. COMPARISON: Right lower extremity venous ultrasound 08/13/2022 and the left lower extremity venous ultrasound 12/05/2020. TECHNIQUE: Gilliam scale, compression, color and waveform Doppler analysis of the deep and superficial venous systems of both lower extremities was performed with augmentation. Spectral Doppler waveforms were evaluated for spontaneity, phasicity and appropriate augmentation. FINDINGS: Partially occluding mildly echogenic thrombus is noted within the proximal segments of both small saphenous veins. Reflux is noted within the right greater saphenous vein of approximately 4.1 seconds at the right knee, 3.1 seconds at the proximal calf, and 0.9 seconds right mid calf. An approximately 4 to 5 mm in caliber superficial varicosity is present of the posterior right calf. There is no deep venous thrombus, abnormal masses, organized fluid collections, or other findings of concern identified elsewhere within either lower extremity. Report Ordering Provider: Mark Zepeda FINAL REPORT Dictated: 07/25/2024 3:10 pm Daniel Vincent MD Signed (Electronic Signature): 07/25/2024 3:10 pm Signed by: Daniel Vincent MD Transcribed by: AMBROCIO Technologist: [facility] CenterUS PVR Lower EXT Complete Bilaton 29-77-5577MU PVR Lower EXT Complete BilatExam Date/Time: 07/25/2024 14:03 EDT Reason for Exam: PAD Report IMPRESSION: NO EVIDENCE OF SIGNIFICANT ARTERIAL STENOTIC DISEASE INVOLVING THE RIGHT AND LEFT LEGS. CLINICAL HISTORY: PAD. COMPARISON: 05/21/2022 FINDINGS: On the right, the brachial systolic pressure is 89 the high thigh pressure is 131, index 1.20 the low thigh pressure is 139, index 1.28 the calf pressure is 116, index 1.06 the posterior tibial ankle pressure is 139, index 1.28 the dorsalis pedis ankle pressure is 120, index 1.10 The plethysmography waveforms are essentially normal. On the left, the brachial systolic pressure is 109 the high thigh pressure is 156, index 1.43 the low thigh pressure is 172, index 1.58 the calf pressure is 126, index 1.34 the posterior tibial ankle pressure is 152, index 1.39 the dorsalis pedis ankle pressure is 125, index 1.15 The plethysmography waveforms are essentially normal. Ordering Provider: Zuri Almendarez FINAL REPORT Dictated: 07/25/2024 4:12 pm Daniel Vincent MD Signed (Electronic Signature): 07/25/2024 4:12 pm Signed by: Daniel Vincent MD Transcribed by: AMBROCIO Technologist: JohnMccullough-Hyde Memorial HospitaleGFRon 53-45-7903kZTP91 mL/min/1.73 y0Cpiqph>=59[facility] HospitalComment on above:Performed By: #### [id number] #### [facility] [address], [place] [address]UYJxp 35-26-7228Hitgf gap [Moles/Vol]11 mmol/LNormal6-16[facility] HospitalComment on above:Performed By: #### [id number] #### [facility] [address], [place] [address]Ipzedno [Mass/Vol]8.5 mg/dLLow8.9-11.1[facility] HospitalComment on above:Performed By: #### [id number] #### [facility] [address] [place], [place] [address]Pwccqjzv [Moles/Vol]106 mmol/MQigqrf071-091HmxpyxMccullough-Hyde Memorial HospitalComment on above:Performed By: #### [id number] #### [facility] [address], [place] [address]XU4 [Moles/Vol]25 mmol/CXidngo91-59XvvipmMccullough-Hyde Memorial Hospital Comment on above:Performed By: #### [id number] #### [facility] [address], [place] [address]Coobehiqqu [Mass/Vol]0.8 mg/dLNormal0.5-1.3[facility] HospitalComment on above:Performed By: #### [id number] #### [facility] [address], [place] [address]Yrsegbp [Mass/Vol]154 mg/mQMqlqwu37-045LzipjoMccullough-Hyde Memorial HospitalComment on above:Performed By: #### [id number] #### [facility] [address], [place] [address]Arwozlqrn [Moles/Vol]3.7 mmol/LNormal3.5-5.3FAdams County Regional Medical CenterComment on above:Performed By: #### [id number] #### [facility] [address], [place] [address]Budwfq [Moles/Vol]138 mmol/CVupzpi027-991LgtfecMccullough-Hyde Memorial HospitalComment on above:Performed By: #### [id number] #### [facility] [address] [place], [place] [address]Suva nitrogen [Mass/Vol]24 mg/dLHigh5-21[facility] HospitalComment on above:Performed By: #### [id number] #### [facility] [address], [place] [address]Vvez nitrogen/Creatinine [Mass ratio]30 No IlupqWtgp37-02XemoqlMccullough-Hyde Memorial HospitalComment on above:Performed By: #### [id number] #### [facility] [address], [place] [address]Dcisvbciy Glucose POCon 76-34-2610Xzmecmm [Mass/Vol]141 mg/dL Wrrc53-37JtxzyvMccullough-Hyde Memorial HospitalComment on above:Result Comment: Notified RN/MDPerformed By: #### [id number] #### [facility] [address], [place] [address]Cdaggzi [Mass/Vol]137 mg/wOAxxx91-54XjbodvMccullough-Hyde Memorial Hospital Comment on above:Result Comment: Notified RN/MDPerformed By: #### [id number] #### [facility] [address], [place] [address]Fskugaa [Mass/Vol]224 mg/qWSpys96-83IqjmmlMccullough-Hyde Memorial Hospital Comment on above:Result Comment: Notified RN/MDPerformed By: #### [id number] #### [facility] [address], [place] [address]Zjureri [Mass/Vol]137 mg/nNUixr69-08NenaacMccullough-Hyde Memorial Hospital Comment on above:Result Comment: Notified RN/MDPerformed By: #### [id number] #### [facility] [address], [place] [address]Taqwu [place] 79-23-9375LE Tube CollectedYesInvalid Interpretation CodeMccullough-Hyde Memorial HospitalComment on above:Performed By: #### [id number] #### [facility] [address], [place] [address]vOROba 01-04-2412mHBX95 mL/min/1.73 x4Qcsnkc>=59[facility] HospitalComment on above:Performed By: #### [id number] #### [facility] [address], [place] [address]Iiumovm aminotransferase [Enzymatic activity/volume] in Serum or PlasmaOrdered By: Javon Dennis on 24-27-9123BHT [Catalytic activity/Vol] Alanine aminotransferase [Enzymatic activity/volume] in Serum or Plasma752 [facility]red Hospital DaytonAlbumin [Mass/volume] in Serum or Plasma by Bromocresol green (BCG) dye binding methoOrdered By: Javon Dennis on 90-49-6182Lsobdcv BCG dye [Mass/Vol]Albumin [Mass/volume] in Serum or Plasma by Bromocresol green (BCG) dye binding metho3.5-5.7FSt. Mary's Medical CenterAlkaline phosphatase [Enzymatic activity/volume] in Serum or PlasmaOrdered By: Javon Dennis on 42-82-6186DIJ [Catalytic activity/Vol]Alkaline phosphatase [Enzymatic activity/volume] in Serum or Satvwe03-285GwdqkylofKindred Hospital DaytonAspartate aminotransferase [Enzymatic activity/volume] in Serum or PlasmaOrdered By: Javon Dennis on 42-90-4128UFA [Catalytic activity/Vol]Aspartate aminotransferase [Enzymatic activity/volume] in Serum or Kdkowa27-09XjubddmchKindred Hospital DaytonB-Type Natriuretic Peptideon 71-87-7086Ggaxikbmyjn peptide B (Bld) [Mass/Vol]115.0 pg/mLHigh5-100The Unc Health Physician GroupComment on above:Result Comment: PERFORMED BY: [facility] [address] [place] [address] PATHOLOGIST CARTRIDGE FEEDER ABBY RIVERA M.D.Performed By: #### BMP, LIPASE, HEPATIC #### [facility] [address] [place] [address] USAPon 89-85-3033Spzen gap [Moles/Vol]10 mmol/LNormal6-16 [facility] HospitalComment on above:Performed By: #### [id number] #### [facility] [address] [place], [place] [address]Vylluvj [Mass/Vol]8.7 mg/dLLow8.9-11.1FAdams County Regional Medical CenterComment on above:Performed By: #### [id number] #### [facility] [address] [place], [place] [address]Vknibcsu [Moles/Vol]107 mmol/VBrmndt653-526CmlqitMccullough-Hyde Memorial HospitalComment on above:Performed By: #### [id number] #### [facility] [address], [place] [address]HY2 [Moles/Vol]23 mmol/OXvxsiv51-86SfgkezMccullough-Hyde Memorial Hospital Comment on above:Performed By: #### [id number] #### [facility] [address] [place], [place] [address]Ultraupxgf [Mass/Vol]0.7 mg/dLNormal0.5-1.3FAdams County Regional Medical CenterComment on above:Performed By: #### [id number] #### [facility] [address], [place] [address]Zyqdrhn [Mass/Vol]168 mg/aJQjymxm26-664OplhsoMccullough-Hyde Memorial HospitalComment on above:Performed By: #### [id number] #### [facility] [address] [place], [place] [address]Pqnopyxzb [Moles/Vol]4.5 mmol/LNormal3.5-5.3FAdams County Regional Medical CenterComment on above:Performed By: #### [id number] #### [facility] [address] [place], [place] [address]Enawuh [Moles/Vol]135 mmol/RRomaos050-435GhzhumMccullough-Hyde Memorial HospitalComment on above:Performed By: #### [id number] #### [facility] [address] [place], [place] [address]Nkss nitrogen [Mass/Vol]19 mg/dLNormal5-21[facility] HospitalComment on above:Performed By: #### [id number] #### [facility] [address] [place], [place] [address]Maff nitrogen/Creatinine [Mass ratio]27 No SresjFdxo88-95RrzbdcMccullough-Hyde Memorial HospitalComment on above:Performed By: #### [id number] #### [facility] [address] [place], [place] [address]EYKfp 11-43-7657Jdn Ctr BNPPassNormalMccullough-Hyde Memorial HospitalComment on above:Performed By: #### [id number] #### [facility] [address] [place], [place] [address]Grnrbdyopkc peptide B (Bld) [Mass/Vol]97 pg/mLHigh5-80[facility] HospitalComment on above:Performed By: #### [id number] #### [facility] [address] [place], [place] [address]Xvoel Metabolic Panelon 04-41-5507Xvpnc gap [Moles/Vol]7.2 mmol/LNormal6.0-15.0The Unc Health Physician GroupComment on above:Performed By: #### BMP, LIPASE, HEPATIC #### [facility] [address] [place] [address] USACalcium [Mass/Vol]8.3 mg/dLLow8.6-10.3The [facility] Health Physician GroupComment on above:Performed By: #### BMP, LIPASE, HEPATIC #### [facility] [address] [place] [address] USAChloride [Moles/Vol]107 mmol/JLuktxe89-691Hcy [facility] Health Physician GroupComment on above:Performed By: #### BMP, LIPASE, HEPATIC #### [facility] [address] [place] [address] USACO2 [Moles/Vol]25.0 mmol/FZuuiyu99.0-31.0The Un[facility] Health Physician GroupComment on above:Performed By: #### BMP, LIPASE, HEPATIC #### [facility] [address] [place] [address] USACreatinine [Mass/Vol]0.78 mg/dLNormal0.70-1.30The Un[facility] Health Physician GroupComment on above:Performed By: #### BMP, LIPASE, HEPATIC #### [facility] [address] [place] [address] USACreatinine Clr Calc Fgewcxfl135.04NormalThe Unc Health Physician GroupComment on above:Performed By: #### BMP, LIPASE, HEPATIC #### [facility] [address] [place] [address] USAGFR/1.73 sq M.predicted MDRD (S/P/Bld) [Vol rate/Area] mL/min/{1.73_m2}NormalThe Unc Health Physician GroupComment on above:Performed By: #### BMP, LIPASE, HEPATIC #### [place] [address] USAGlucose [Mass/Vol]169 mg/sDAzrb37-272Evs Unc Health Physician GroupComment on above:Result Comment: Random Glucose Reference Range is dependent on time and content of last meal. Glucose of more than 200 mg/dL in a nonstressed, ambulatory subject supports the diagnosis of Diabetes Mellitus. ADA recommended reference rangePerformed By: #### BMP, LIPASE, HEPATIC #### [place] [address] USAPotassium [Moles/Vol]4.2 mmol/LNormal3.5-5.1The Unc Health Physician GroupComment on above:Performed By: #### BMP, LIPASE, HEPATIC #### [place] [address] USASodium [Moles/Vol]135 mmol/RMqw235-252Haq [facility] Health Physician GroupComment on above:Performed By: #### BMP, LIPASE, HEPATIC #### [facility] [address] [place] [address] USAUrea nitrogen [Mass/Vol]23 mg/dLNormal7-25The Unc Health Physician GroupComment on above:Performed By: #### BMP, LIPASE, HEPATIC #### [facility] [address] [place] [address] USABasophils Auto (Bld) [#/Vol]Ordered By: Javon Dennis on 94-84-3023Mubnbqvih (Bld) [#/Vol]Automated basophil count0.0-0.2FSt. Mary's Medical CenterBasophils Auto (Bld) [#/Vol]on 55-84-0336Hfszicekq (Bld) [#/Vol]Automated basophil count0.0-0.1FSt. Mary's Medical Center Basophils/100 WBC Auto (Bld)Ordered By: Javon Dennis on 07-23-2024 Basophils/100 WBC (Bld)Automated basophil %.[facility] Basophils/100 WBC Auto (Bld)on 36-57-3176Faubqyios/100 WBC (Bld)Automated basophil %0.2-2.0[facility] Hospital DaytonBilirubin.direct [Mass/volume] in Serum or PlasmaOrdered By: Javon Dennis on 02-24-3740Pluewqtpd.direct [Mass/Vol]Bilirubin.direct [Mass/volume] in Serum or Plasma0.03-0.18FSt. Mary's Medical CenterBilirubin.total [Mass/volume] in Serum or PlasmaOrdered By: Javon Dennis on 14-15-8638Pqjudygbi [Mass/Vol]Bilirubin.total [Mass/volume] in Serum or Plasma0.3-1.0[facility] DaytonCB w/ Auto Diffon 61-24-9504Ovudckfeq/100 WBC (Bld)1.1 %Normal0.0-2.0[facility] HospitalComment on above:Performed By: #### [id number] #### [facility] [address] [place], [place] [address]Nmefcmkkb/Leukocytes Auto (Bld) [Pure # fraction]0.1 E9/LNormal 0.0-0.2[facility] HospitalComment on above:Performed By: #### [id number] #### [facility] [address] [place], [place] [address]Xvriyhywqvs (Bld) [#/Vol]0.1 E9/LNormal0.0-0.5FAdams County Regional Medical CenterComment on above:Performed By: #### [id number] #### [facility] [address] [place] [address]Jigvbvzrpss/100 WBC (Bld)1.5 %Normal0.0-8.0[facility] HospitalComment on above:Performed By: #### [id number] #### [facility] [address] [place] [address]Leeuyculjtp distribution width (RBC) [Ratio]18.1 %High10.9-14.2 [facility] HospitalComment on above:Performed By: #### [id number] #### [facility] [address] [place] [address]Dpddohckoc (Bld) [Volume fraction]31.1 %Low37.7-49.0[facility] HospitalComment on above:Performed By: #### [id number] #### [facility] [address] [place] [address]Gzutohcczj (Bld) [Mass/Vol]10.0 g/dLLow13.5-17.5FAdams County Regional Medical CenterComment on above:Performed By: #### [id number] #### [facility] [address] [place] [address] 99459Hodhzaojdja (Bld) [#/Vol]1.3 E9/LNormal1.0-4.0[facility] HospitalComment on above:Performed By: #### [id number] #### [facility] [address], [place] [address]Yioujuskcwp/100 WBC (Bld)23.2 %Fwkodp06.0-50.0[facility] HospitalComment on above:Performed By: #### [id number] #### [facility] [address] [place] [address] 68347TAY (RBC) [Entitic mass]27.6 avCcjiay54.0-34.0[facility] HospitalComment on above:Performed By: #### [id number] #### [facility] [address] [place] [address] 34327NRFP (RBC) [Mass/Vol]32.1 g/kBTspign22.4-36.0[facility] HospitalComment on above:Performed By: #### [id number] #### [facility] [address] [place] [address] 99868FEG (RBC) [Entitic vol]85.9 qXYzztcd72.0-100.0[facility] Memorial HospitalComment on above:Performed By: #### [id number] #### [facility] [address] [place] [address] 22467Vzvgyypol (Bld) [#/Vol]0.3 E9/LNormal0.2-1.0[facility] HospitalComment on above:Performed By: #### [id number] #### [facility] [address] [place] [address] 33256Efhlzbjpbyg (Bld) [#/Vol]3.8 E9/LNormal2.0-7.5FAdams County Regional Medical CenterComment on above:Performed By: #### [id number] #### [facility] [address] [place] [address] 59202Mkqvtpylicm/100 WBC (Bld)69.4 %Bgwthh33.0-75.0[facility] HospitalComment on above:Performed By: #### [id number] #### [facility] [address] [place] [address] 61126Tmvtudpg mean volume (Bld) [Entitic vol]8.6 fLNormal6.4-10.8 [facility] HospitalComment on above:Performed By: #### [id number] #### [facility] [address] [place] [address] 22919Fiwdrydba (Bld) [#/Vol]264.0 E9/GAnmrjq631.0-500.0[facility] HospitalComment on above:Performed By: #### [id number] #### [facility] [address], [place] [address]ZDD (Bld) [#/Vol]3.6 E12/LLow4.3-5.9[facility] Comment on above:Performed By: #### [id number] #### [facility] [address], [place] [address]TTZ corrected for nucl RBC Auto (Bld) [#/Vol]5.5 E9/LNormal 4.0-11.0[facility] HospitalComment on above:Performed By: #### [id number] #### [facility] [address], [place] [address]ODKMGOPQAJtzfyye By: SYSTEM SYSTEM on 33-40-8456Utwbmknx HS5.70 pg/mLLow15.90 - 38.40 pg/mLRemisol ChemComment on above:Interpretive Data: The 95% CI (Confidence Interval) PPV (Positive Predictive Value) for myocardial i nfarction in females is 38 pg/mL, in males 51 pg/mL. The results should be used in conjunction withclinical conditions of myocardial infarction. ([employer] High Sensitivity Troponin I Instructions For Use, Angella Joy, December 2017)Troponin HS5.20 pg/mLLow15.90 - 38.40 pg/mLRemisol ChemComment on above:Interpretive Data: The 95% CI (Confidence Interval) PPV (Positive Predictive Value) for myocardial infarction in females is 38 pg/mL, in males 51 pg/mL. The results should be used in conjunction withclinical conditions of myocardial infarction. ([employer] High Sensitivity Troponin I Instructions For Use, Angella Joy, December 2017)CRP [Mass/Vol]0.1 mg/dLNormal<=1.9mg/dLRemisol ChemTroponin HS5.30 pg/mLLow15.90 - 38.40 pg/mLRemisol ChemComment on above:Interpretive Data: The 95% CI (Confidence Interval) PPV (Positive Predictive Value) for myocardial i nfarction in females is 38 pg/mL, in males 51 pg/mL. The results should be used in conjunction withclinical conditions of myocardial infarction. ([employer] High Sensitivity Troponin I Instructions For Use, Angella Joy, December 2017)Lactic Acid Lvl1.4 mmol/LNormal0.5 - 2.2 mmol/LRemisol ChemMagnesium [Mass/Vol]2.3 mg/dLNormal1.3 - 2.4 mg/dLRemisol ChemCHEMISTRYOrdered By: Sera Dasilva on 45-03-3929Vzymuuilxxg peptide B (Bld) [Mass/Vol]97 pg/mLHigh5 - 80 pg/mLMEM[facility] HemeManSSCOAGULATIONOrdered By: Sera Dasilva on 80-48-0337uLAL Coag (PPP) [Time]19.6 sLow25.1 - 36.5 second(s)[facility] Auto CoagComment on above: Interpretive Data: Parameter 15 days - 4 weeks 1 - [...] the same coagulation reagent and instrumentation as [facility]. Currently there are no coagulation studies available worldwide for children to 14 days, andno normal ranges. Heparin therapeutic range (represented by Anti-Factor Xa activity of 0.2 - 0.4 U/mL) corresponds to PTT of 56.6 - 109.0 sec.INR Coag (PPP) [Relative time]0.95 {INR}Invalid Interpretation CodeMEMORIAL HOSPITAL OF TEXAS COUNTY [facility] Auto CoagComment on above:Interpretive Data: INR results are specifically intended to assess patients stabilized on long-term Anticoagulation therapy suggested INR s Less Intensive Anticoagulation 2.0 3.0 Conventional Range 3.0 4.5PT Coag (PPP) [Time]10.6 sNormal9.4 - 12.5 second(s) [facility] Auto CoagComment on above:Interpretive Data: 15 days - 4 weeks 1 - 5 months 6 -11 months 1 5 years 6 10 years 11 -17 years Mean: 11.2 (9.5 12.6) Mean: 11.0 (9.7 12.8) Mean: 11.0 (9.8 13.0) Mean: 11.3 (9.9 13.4) Mean: 11.7 (10.0 14.6) Mean: 11.8 (10.0 - 14.1) Pediatric Reference ranges were obtained from a study by Jose Juan Olguin et al. prepared from 1437 samples obtained at 7 different centers using the same coagulation reagent and instrumentation as [facility]. Currently there are no coagulation studies available worldwide for children to 14 days, andno normal ranges.CRPon 18-89-5232SDL [Mass/Vol]0.1 mg/dLNormal<=1.9[facility] HospitalComment on above:Performed By: #### [id number] #### [facility] [address], [place] [address]KJ angio cheston 76-70-4063ZK angio [facility] [address] CT Scan Report Signed Patient: Matt Waterman MR#: [id number] : 1960 Acct:[id number] Age/Sex: 63 / M ADM Date: 07/23/24 Loc: ER Room: Type: [facility] ER Attending Dr: Copies to: Javon Dennis DO Ordering Provider: Javon Dennis DO Date of Service: 07/23/24 CT/CT angio chest: cp, eval aorta CTA Chest TECHNIQUE: Axial imaging with 2-D and 3-D reconstruction. 90cc of Isovue-[address] exam was performed using one or more the following dose reduction techniques: Automated exposure control, adjustment of the MA and/or Kv according to patient size, or use of the iterative reconstruction technique. History: Back and chest pain. Shortness of breath. COMPARISON: None THYROID: Unremarkable TRACHEA AND BRONCHI: Patent ESOPHAGUS: Unremarkable. HEART: Within normal limits PERICARDIAL EFFUSION: None CORONARY ARTERY CALCIFICATION: Present MEDIASTINUM: No adenopathy. No pneumoperitoneum. No mediastinal hematoma. PULMONARY THUY: No hilar mass or adenopathy is seen. THORACIC AORTA Unremarkable PULMONARY EMBOLUS: None LUNG NODULE None LUNGS: Mild atelectasis PLEURAL EFFUSION: None PNEUMOTHORAX: No pneumothorax seen. CHEST WALL: No abnormality AXILLA: Unremarkable BONY STRUCTURES hyperostosis of thoracic spine UPPER ABDOMEN: Gastric surgery changes. CT/CT angio chest IMPRESSION: No thoracic aortic aneurysm or dissection. No acute findings. Thoracic hyperostosis. Impression dictated by: Zaheer Nunez M.D.07/23/2024 8:47 AM Dictation Location: [facility]--20 Transcribed By: [facility] 07/23/24 0847 Dictated By: Zaheer Nunez DO 07/23/24 0845 Signed By: 07/23/24 0847[facility] Physician GroupCalcium [Mass/volume] in Serum or PlasmaOrdered By: Javon Dennis on 09-26-2067Bzqtzzq [Mass/Vol]Calcium [Mass/volume] in Serum or PlasmaLow8.6-10.3FSt. Mary's Medical Center Capillary Glucose POCon 36-65-4908Akwhzdv [Mass/Vol]235 mg/oVXdww45-14Kfrxdh76 Patterson StreetComment on above:Result Comment: Notified RN/MDPerformed By: #### [id number] #### [facility] [address], [place] [address]Sxutkqa [Mass/Vol]142 mg/nZGvup93-78Talqjv[address] Comment on above:Result Comment: Notified RN/MDPerformed By: #### [id number] #### [facility] [address], [place] [address]Irefss dioxide, total [Moles/volume] in Serum or PlasmaOrdered By: Javon Dennis on 32-14-5435US1 [Moles/Vol]Carbon dioxide, total [Moles/volume] in Serum or Barjsm45.0-31.0[facility] Chloride [Moles/volume] in Serum or PlasmaOrdered By: Javon Dennis on 97-09-3655Gprspnmx [Moles/Vol]Chloride [Moles/volume] in Serum or Ennbpc19-941 [facility] DaytonComplete Blood Count Auto Diffon 07-23-2024 Basophils (Bld) [#/Vol]0.1 10*3/uLNormal0.0-0.2[facility] Comment on above:Result Comment: PERFORMED BY: [place] [address] PATHOLOGIST CARTRIDGE FEEDER ABBY RIVERA M.D.Performed By: #### CBC, CK, PT, HS TROP, BNP #### [place] [address] USABasophils/100 WBC (Bld)1.1 %Normal.The [facility] Physician GroupComment on above:Performed By: #### CBC, CK, PT, HS TROP, BNP #### [place] [address] USAEosinophils (Bld) [#/Vol]0.1 10*3/uLNormal0.0-0.45The [facility] Health Physician GroupComment on above:Performed By: #### CBC, CK, PT, HS TROP, BNP #### [place] [address] USAEosinophils/100 WBC (Bld)3.0 %Normal.The [facility] Physician GroupComment on above:Performed By: #### CBC, CK, PT, HS TROP, BNP #### [place] [address] USAErythrocyte distribution width (RBC) [Ratio]18.2 %High 12.0-14.8The [facility] Physician GroupComment on above:Performed By: #### CBC, CK, PT, HS TROP, BNP #### [place] [address] USAHematocrit (Bld) [Volume fraction]28.5 %Low38.8-50.0The [facility] Physician GroupComment on above:Performed By: #### CBC, CK, PT, HS TROP, BNP #### [place] [address] USAHemoglobin (Bld) [Mass/Vol]9.2 g/dLLow13.0-17.0The [facility] Physician GroupComment on above:Performed By: #### CBC, CK, PT, HS TROP, BNP #### [place] [address] USALymphocytes (Bld) [#/Vol]1.5 10*3/uLNormal1.00-4.8The [facility] Physician GroupComment on above:Performed By: #### CBC, CK, PT, HS TROP, BNP #### [place] [address] USALymphocytes/100 WBC (Bld)31.7 %Normal.The [facility] Physician GroupComment on above:Performed By: #### CBC, CK, PT, HS TROP, BNP #### [address]H (RBC) [Entitic mass]27.5 muPmglbb20.5-35.2The [facility] Health Physician GroupComment on above:Performed By: #### CBC, CK, PT, HS TROP, BNP #### [address] (RBC) [Entitic vol]85.4 hETucozd56.5-101The [facility] Health Physician GroupComment on above:Performed By: #### CBC, CK, PT, HS TROP, BNP #### [place] [address] USAMean Corpuscular HGB Conc32.2 g/dLLow32.5-35.6The [facility] Health Physician GroupComment on above:Performed By: #### CBC, CK, PT, HS TROP, BNP #### [place] [address] USAMonocytes (Bld) [#/Vol]0.2 10*3/uLNormal0.0-0.8The [facility] Physician GroupComment on above:Performed By: #### CBC, CK, PT, HS TROP, BNP #### [place] [address] USAMonocytes/100 WBC (Bld)23.28 %High0.00-20.00The [facility] Health Physician GroupComment on above:Result Comment: For adults in ED, MDW > 20.0 may be associated with a higher risk of sepsis during the first 12 hrs of hospital admissionPerformed By: #### CBC, CK, PT, HS TROP, BNP #### [facility] [address] [place] [address] USAMonocytes/100 WBC (Bld)5.1 %Normal.The [facility] Physician GroupComment on above:Performed By: #### CBC, CK, PT, HS TROP, BNP #### [facility] [address] [place] [address] USANeutrophils (Bld) [#/Vol]2.8 10*3/uLNormal1.8-7.7The [facility] Health Physician GroupComment on above:Performed By: #### CBC, CK, PT, HS TROP, BNP #### [place] [address] USANeutrophils/100 WBC (Bld)59.1 %Normal.The [facility] Health Physician GroupComment on above:Performed By: #### CBC, CK, PT, HS TROP, BNP #### [place] [address] USANRBC%0.1 /100{WBC}Normal0-0.5The [facility] Comment on above:Performed By: #### CBC, CK, PT, HS TROP, BNP #### [place] [address] USAPlatelet mean volume (Bld) [Entitic vol]7.9 fLNormal 6.6-10.1The [facility] Physician GroupComment on above:Performed By: #### CBC, CK, PT, HS TROP, BNP #### [place] [address] USAPlatelets (Bld) [#/Vol]274 10*3/wEElwksy801-311Jrf [facility] Physician GroupComment on above:Performed By: #### CBC, CK, PT, HS TROP, BNP #### [place] [address] USARBC (Bld) [#/Vol]3.34 10*6/uLLow3.90-5.60The [facility] Physician GroupComment on above:Performed By: #### CBC, CK, PT, HS TROP, BNP #### [place] [address] USAWBC (Bld) [#/Vol]4.8 10*3/uLNormal4.1-10.5The [facility] Health Physician GroupComment on above:Performed By: #### CBC, CK, PT, HS TROP, BNP #### [facility] [address] [place] [id number] USACreatine Kinaseon 00-47-9545US [Catalytic activity/Vol]61 U/BJqdyhd24-622Dje [facility] Physician GroupComment on above:Performed By: #### BMP, LIPASE, HEPATIC #### [place] [id number] USACreatine kinase [Enzymatic activity/volume] in Serum or PlasmaOrdered By: Javon Dennis on 39-32-1841YT [Catalytic activity/Vol] Creatine kinase [Enzymatic activity/volume] in Serum or Bevkzc74-682ZaywhvqalKindred Hospital DaytonCreatinine [Mass/volume] in Serum or PlasmaOrdered By: Javon Dennis on 24-13-2817Ujuqalarxo [Mass/Vol]Creatinine [Mass/volume] in Serum or Plasma0.70-1.30[facility] DaytonECG 12 lead ECGon 99-68-5726TZN 12 lead [facility]WO[facility] [place] [address] [place] [address] Electrocardiograph Report Signed Patient: Matt Waterman MR#: [id number] : 1960 Acct:[id number] Age/Sex: 63 / M ADM Date: 07/23/24 Loc: ER Room: Type: [facility] ER Attending Dr: Ordering Provider: Javon Dennis DO Date of Service: 07/23/24 ECG/ECG 12 lead ECG: Chest Pain Copies to: Test Reason : Blood Pressure : */* mmHG Vent. Rate : 71 BPM Atrial Rate : 71 BPM P-R Int : 218 ms QRS Dur : 90 ms QT Int : 392 ms P-R-T Axes : 27 -2 61 degrees QTcB Int : 425 ms Sinus rhythm with 1st degree AV block Low voltage QRS Confirmed by Javon DENNIS DO ([id number]) on 07/23/2024 10:58:18 AM Referred By: Electronically Signed By: Javon DENNIS DO Transcribed By: MUS Signed By Javon Dennis DO 0 07/23/[address] [place] [address] Physician GroupED Clinical Summaryon 07-23-2024 ED Clinical SummaryED Clinical Summary [place] [id number] ED Clinical Summary Person Information Name: MATT W[place]MAN [place] Age: 63 Years : 1960 Sex: Male Language: S[place] PCP: SURAJ LIZ MD Marital Status: Life Partner Phone: [phone] Visit Id: Visit Reason: Lower leg pain-swelling; POSS CELLULITIS Speciality: Acuity: 3 Enc Type: Observation Med Service: Medical Arrival: 07/23/2024 12:21:01 Discharge: LOS: 000 03:27 Checkin: 07/23/2024 12:21:01 Checkout: 07/23/2024 15:48:09 Dispo Type: Admitted as IP to this [facility] EVENTS: Event Name Event Status Request Date/Time Start Date/Time Complete Date/Time Arrive Complete 07/23/2024 12:21:01 07/23/2024 12:21:01 07/23/2024 12:21:01 Document Home Meds Request 07/23/2024 12:21:01 Triage Complete 07/23/2024 12:21:01 07/23/2024 12:34:45 07/23/2024 12:34:45 Bed Assign Complete 07/23/2024 12:27:21 07/23/2024 12:27:21 07/23/2024 12:27:21 Dr Exam Complete 07/23/2024 12:27:21 07/23/2024 12:29:31 07/23/2024 12:29:31 RN Exam Complete 07/23/2024 12:27:21 07/23/2024 12:36:42 07/23/2024 12:36:42 Registration Complete 07/23/2024 12:29:31 07/23/2024 12:32:03 07/23/2024 12:32:03 Reg Complete Request 07/23/2024 12:32:03 Reg Bed Request Complete 07/23/2024 12:32:03 07/23/2024 12:32:03 07/23/2024 12:32:03 EKG Complete 07/23/2024 12:41:22 07/23/2024 12:46:31 Pending Labs Complete 07/23/2024 12:44:32 07/23/2024 14:48:35 Lab Complete 07/23/2024 12:44:32 07/23/2024 14:48:35 Meds Admin Complete 07/23/2024 12:44:32 07/23/2024 12:55:11 Patient Care Request 07/23/2024 12:44:32 RT Request 07/23/2024 12:44:32 X-Ray Complete 07/23/2024 12:44:32 07/23/2024 13:01:37 07/23/2024 14:29:15 Pending Labs Complete 07/23/2024 13:15:28 07/23/2024 13:15:28 07/23/2024 13:43:23 Lab Complete 07/23/2024 13:15:28 07/23/2024 13:15:28 07/23/2024 13:43:23 Meds Admin Request 07/23/2024 13:16:48 Meds Admin Complete 07/23/2024 13:42:37 07/23/2024 13:50:31 Consult Request 07/23/2024 14:20:47 Hospitalist Consult Request 07/23/2024 14:20:47 Observation Request 07/23/2024 14:23:56 Patient Care Request 07/23/2024 14:23:56 Patient Care Request 07/23/2024 14:23:58 Patient Care Request 07/23/2024 14:23:58 Medicare Form Complete 07/23/2024 14:23:59 07/23/2024 14:40:16 Patient Care Request 07/23/2024 14:23:59 Patient Care Request 07/23/2024 14:23:59 Wet Read Request 07/23/2024 14:29:15 Inpatient Bed Ready Complete 07/23/2024 15:48:09 07/23/2024 15:48:09 07/23/2024 15:48:09 ADDRESS: [address] [place] [id number] PHYS DOC NOTES: MEDICAL INFORMATION: Prescriptions Given: Medications to Continue with No Changes Other Medications apixaban (apixaban 2.5 mg oral tablet) 1 Tablets By Mouth 2 times a day. Refills: 0. aspirin (aspirin 81 mg Chew Tab) 1 Tablets Chewed every day. atorvastatin (atorvastatin 80 mg Tab) 1 Tablets By Mouth every day. atropine-diphenoxylate (atropine-diphenoxylate 0.025 mg-2.5 mg Tab) 1 Tablets By Mouth 4 times a day as needed for loose stool. Refills: 0. bumetanide (bumetanide 1 mg Tab) 3 Tablets By Mouth 2 times a day. carvedilol (Coreg 3.125 mg Tab) 1 Tablets By Mouth 2 times a day. cholecalciferol (cholecalciferol 2000 intl units oral capsule) 1 Capsules By Mouth every day. Refills: 0. dapagliflozin (Farxiga 10 mg oral tablet) 1 Tablets By Mouth every day. daridorexant (Quviviq 25 mg oral tablet) 1 Tablets By Mouth at bedtime as needed Insomnia. diclofenac topical (diclofenac topical 1% gel) 1 Application Topical 4 times a day as needed for pain. divalproex sodium (divalproex sodium 125 mg Cap-EC) 1 Capsules By Mouth 2 times a day. divalproex sodium (divalproex sodium 500 mg Oral EC Tab) 1 Tablets By Mouth 2 times a day. ferrous sulfate (ferrous sulfate 325 mg Tab) 1 Tablets By Mouth 3 times a day. Refills: 0. finasteride (finasteride 5 mg Tab) 1 Tablets By Mouth every day. fluticasone nasal (fluticasone Nasal 0.05 mg/inh Universal) 2 Sprays Nasal Inhalation every day as needed Allergy symptoms. each nostril. fluticasone-salmeterol (Advair 250 mcg-50 mcg Powder) 1 Puffs Inhalation 2 times a day. gabapentin (gabapentin 800 mg Tab) 1 Tablets By Mouth 3 times a day. insulin glargine (Lantus 100 units/mL Injection-Insulin) 30 Units Subcutaneous 2 times a day. insulin regular (Humulin R (Concentrated) 500 units/mL subcutaneous solution) See Instructions. isosorbide mononitrate (isosorbide mononitrate 30 mg ER Tab) 1 Tablets By Mouth every day. metformin (metformin 500 mg Tab) 1 Tablets By Mouth 2 times a day. Misc Prescription (S.A.S.(Saline, Administration of Drug, Saline)) 0. Refills: 0. Misc Prescription (S.A.S.H.(Saline, Administration of Drug, Saline, Heparin) 0. Refills: 0. multivitamin (Multi Vitamins oral tablet) 1 Tablets By Mouth every day. naloxone (naloxone 2 mg/ 2 mL Inj Syringe) 2 Milligram Nasal Inhalation As Directed. . (2 syringes with nasal administration (more content not included)... NormalCherrington Hospital Medical CenterED Note-Physicianon 67-99-1031AG Note-Physician ED Note-Physician Basic Information Time Seen: Lucia Noyola M.D. 07/23/2024 12:29 Chief Complaint c/o bilateral lower leg swelling, redness, and pain. concerned of celllulitis. pt states recent amputations on both feet in the last 3 months. History of Present Illness The patient is a 63-year-old male past medical history of coronary artery disease status post cardiac stent, atrial fibrillation, on Eliquis, COPD, congestive heart failure, diabetes, who presented to the emergency room for possible cellulitis and chest pain. The patient states he has bilateral lower leg swelling which is chronic. He states his skin started to get darker and he was concerned for possible cellulitis. The patient reports some nausea but no vomiting. He states this morning and start developing chest pressure. He points to the center of the chest. The patient states thepain goes up to his jaw. The patient reports sweating. He denies any shortness of breath. Denies any dizziness or lightheadedness. The patient denies any fever. He reports some chills. The patient denies any other associated symptoms. Review of Systems Additional ROS info: Except as noted in the above Review of Systems and in the History of Present Illness all other systems have been reviewed and are negative or noncontributory. Physical Exam Vitals & Measurements T: 36.4 ???C(Axillary) HR: 61(Monitored) RR: 18 BP: 154/66 SpO2: 99% HT: 180 cm WT: 135.4 kg BMI: 41.79 General: alert, no acute distress Skin: warm, dry, Head: no trauma, normocephalic Neck: Trachea midline, no tenderness, supple Eye: normal conjunctiva, sclera clear, PERRL, EOMI, vision unchanged ENMT: Oral mucosa moist, no pharyngeal erythema or exudate Cardiovascular: regular rate and rhythm Respiratory: Lungs CTA, respirations non labored, breath sounds equal, Gastrointestinal: soft, non distended, no tenderness, no guarding Extremities: no deformity, no trauma, right transmetatarsal amputation. Bilateral lower leg edema with a chronic venous stasis. There is tenderness with palpation. There is no warmth. No erythema. Neurological: Alert and oriented, speech normal, no focal neuro deficits Psychiatric: cooperative, affect appropriate for age Procedure Heart Score for Major Cardiac Event History: Example factors for history - pattern of chest pain, onset, duration, relation with exercise, stress or cold, localization, concominant symptoms. reaction to sublingual nitrates, [] Highly suspicious +2 [x] Moderately suspicious +1 [] Slightly suspicious 0 EKG: [] Significant ST-Depression +2 [] Non specific repolarization disturbance +1 [x] Normal 0 Age: [] >= 65 +2 [x] 45-65 + 1 [] <45 0 Risk Factors: (HLD, HTN, DM, Cigarette Smoking, Pos Family Hx, Obesity) [x] >3 risk factors or hx of atheroslerotic disease + 2 [] 1-2 risk factors + 1 [] No risk factors known 0 Troponin: [] >= 3X normal + 2 [] 1-3X normal + 1 [x] <= Normal 0 [] 0-3 Points 0.9 - 1.7% risk of major adverse cardiac event in 6 weeks [x] 4-6 Points 12-16.6% risk of major adverse cardiac event in 6 weeks [] 7-10 Points 50-65% risk of major adverse cardiac event in 6 weeks [] 0-3 Points with 2 sets of negative cardiac markers <1% risk of major adverse cardiac event in30 days. Medical Decision Making MEDICAL DECISION MAKING Number and Complexity of Problems Differential Diagnosis: [] [facility] Data External documents reviewed: [] My EKG interpretation: [] My CT interpretation: [] My X-ray interpretation: [] My Ultrasound interpretation: [] Decision rules/scores evaluated: [] Discussed with: Hospitalist Treatment and Disposition ED Course: The patient presented with bilateral leg pain and skin discoloration. He reported chest pain as well. The patient is concern for cellulitis. I do not believe patient has cellulitis. He does have venous stasis dermatitis. The EKG shows no acute ischemic changes. The patient has history ofcoronary artery disease. He was given aspirin and nitroglycerin which improved the blood pressure but not his chest pain. The case is discussed with hospitalist and the patient will be admitted to rule out ACS. Shared decision making: [] Code status: [] Assessment/Plan 1. Venous stasis dermatitis (I87.2: Venous insufficiency (chronic) (peripheral)) Chest pain (R07.9: Chest pain, unspecified) Orders: acetaminophen-oxycodone, 1 tab(s), Tab, Oral, Once, Stop date 07/23/24 13:42:00 EDT, STAT, Start date 07/23/24 13:42:00 EDT aspirin, 162 mg = 2 tab(s), Tab-Chew, Oral, Once, Stop date 07/23/24 12:43:00 EDT, STAT, Start date07/23/24 12:43:00 EDT, 07/23/24 12:43:00 EDT nitroglycerin, 0.4 mg = 1 tab(s), Tab, SubLingual, q5min PRN Chest pain for 3 dose(s), Stop da (more content not included)...[facility] Comment on above:Result Comment: Electronically Signed By: Dennys Merida, Lucia Gavin\.br\Date and Time Signed: 07/23/2517:33 EDTED Patient Education Noteon [id number] Patient Education NoteED Patient Education NoteNormSub[facility] Patient Summaryon [id number] Patient SummaryED Patient Summary [place] [id number] Patient Discharge Instructions Person Information Name: MATT WATERMAN Age: 63 Years Arrival Date: 07/23/2024 12:21:01 Discharge Diagnosis: 1:Venous stasis dermatitis Primary Care Physician: SURAJ LIZ MD Provider Information Primary Provider: Lucia Noyola M.D. Advanced Appliquer:None The exam and treatment you received in the Emergency Department were for an urgent problem and are not intended as complete care. It is important that you follow up with a doctor, nurse practitioner,or physician???s personal assistant for ongoing care. If your symptoms become worse or you do not improve asexpected and you are unable to reach your usual health care provider, you should return to the Emergency Department. We are available 24 hours a day. MATT WATERMAN has been given the following list of patient education materials, prescriptions and follow-up instructions: Follow-up Instructions: In the event that this physician does not participate in your insurance network, please consult with your insurance company to find a nearby participating provider. Patient Education Materials: A MESSAGE TO ALL PATIENTS REGARDING OPIOIDS PRESCRIPTION OPIOIDS: WHAT YOU NEED TO KNOW Prescription opioids can be used to help relieve zwofugyt-yv-tiikfu pain and are often prescribed following a surgery or injury, or for certain health conditions. These medications can be an important part of the treatment but also come with serious risks. It is important to work with your healthcare provider to make sure you are getting the safest, most effective care. WHAT ARE THE RISKS AND SIDE EFFECTS OF OPIOID USE? Prescription opioids carry serious risks of addiction and overdose, especially with prolonged use. An opioid overdose, often marked by slowed breathing, can cause sudden . The use of prescription opioids can have a number of side effects as well, even when taken as directed: ??? Tolerance???meaning you might need to take more of the medication for the same pain relief ??? Physical dependence???meaning you have symptoms of withdrawal when a medication is stopped ??? Increased sensitivity to pain ??? Constipation ??? Nausea, vomiting, and dry mouth ??? Sleepiness and dizziness ??? Confusion ??? Depression ??? Low levels of testosterone that can result in lower sex drive, energy, and strength ??? Itching and sweating RISKS ARE GREATER WITH: ??? History of drug misuse, substance use disorder, or overdose ??? Mental health conditions (such as depression or anxiety) ??? Sleep apnea ??? Older age (65 years and older) ??? Avoid alcohol while taking prescription opioids. Also, unless specifically advised by your health care provider, medications to avoid include: ??? Benzodiazepines (such as Xanax or Valium) ??? Muscle relaxants (such as Soma or Flexeril) ??? Hypnotics (such as Ambien or Lunesta) ??? Other prescription opioids KNOW YOUR OPTIONS Talk to your health care provider about ways to manage your pain that don???t involve prescription opioids. Some of these options may actually work better and have fewer risks and side effects. Options may include: ??? Pain relievers such as acetaminophen, ibuprofen, and naproxen ??? Some medication that are also used for depression or seizures ??? Physical therapy and exercise ??? Cognitive behavioral therapy, a psychological, goal-directed approach, in which patients learn how to modify physical, behavioral, and emotional triggers of pain and stress. IF YOU ARE PRESCRIBED OPIOIDS FOR PAIN: ??? Never take opioids in greater amounts or more often than prescribed. ??? Follow up with your primary health care provider. o Work together to create a plan on how to manage your pain. o Talk about ways to help manage your pain that don???t involve prescription opioids. o Talk about any and all concerns and side effects. ??? Help prevent misuse and abuse o Never sell or share prescription opioids. o Never use another person???s prescription opioids. ??? Store prescription opioids in a secure place and out of reach of others (this may include visitors, children, friends, and family). ??? Safely dispose of unused prescription opioids: Find your community drug take-back program or your pharmacy mail-back program, or flush them down the toilet, following guidance from the Food and Drug Administration (www.fda.gov/Drugs/ResourcesForYou). ??? Visit www.cdc.gov/drugoverdose to learn about the risks of opioids abuse and overdose. ??? If you believe you may be struggling with addiction, tell your health home care assistant and askfor guidance or call [facility]???S National Helpline at 9-968-365-UXTX. Source: Department of Health and Human Services/Center for [facility] (more content not included)...[facility] HospitalEosinophils Auto (Bld) [#/Vol]Ordered By: Javon Dennis on 00-18-0086Gbmwlqzqrfg (Bld) [#/Vol] Automated eosinophil count0.0-0.45[facility] Eosinophils/100 WBC Auto (Bld)Ordered By: Javon Dennis on 07-23-2024 Eosinophils/100 WBC (Bld)Automated eosinophil %.[facility] DaytonEosinophils/100 WBC Auto (Bld)on 76-05-6832Wirlvgarzyh/100 WBC (Bld) Automated eosinophil %0.9-7.0[facility] DaytonErythrocyte distribution width Auto (RBC) [Ratio]Ordered By: Javon Dennis on 07-23-2024 Erythrocyte distribution width (RBC) [Ratio]Erythrocyte distribution width [Ratio] by Automated eaxlsIrth98.0-14.8[facility] Erythrocyte distribution width Auto (RBC) [Ratio]on 23-41-6923Scuxazaqzel distribution width (RBC) [Ratio]Erythrocyte distribution width [Ratio] by Automated ucfmrWhck19.0-15.0[facility] DaytonEstimated glomerular filtration rate (GFR) non- Americanon 94-09-8989JWL/1.73 sq M.predicted among non-blacks MDRD (S/P/Bld) [Vol rate/Area]Estimated glomerular filtration rate (GFR) non->=60 mL/min/1.73m 2FSt. Mary's Medical CenterGlobulin Calc (S) [Mass/Vol]Ordered By: Javon Dennis on 57-28-6588Zbfbercu (S) [Mass/Vol]Serum globulin measurement by calculation (mass/volume)[facility] DaytonGlucose [Mass/volume] in Serum or PlasmaOrdered By: Javon Dennis on 64-58-6608Ktoheem [Mass/Vol]Glucose [Mass/volume] in Serum or JmpwvaQnjm01-467GayiahownKindred Hospital Dayton Comment on above:ADA recommended reference rangeRandom Glucose Reference Range is dependent on time and content of last meal. Glucose of more than 200 mg/dL in a nonstressed, ambulatory subject supports the diagnosisof Diabetes Mellitus. HEMATOLOGYOrdered By: Sera Dasilva on 14-69-0896ANP (Bld) [Velocity]27 mm/hHigh 0 - 19 mm/hrMEMORIAL H[facility] HemeAutoSSHematocrit Auto (Bld) [Volume fraction]Ordered By: Javon Dennis on 47-99-2019Tzaqfndtiq (Bld) [Volume fraction]Hematocrit [Volume Fraction] of Blood by Automated xkaogHmm95.8-50.0[facility] DaytonHematocrit Auto (Bld) [Volume fraction]on 64-50-5495Wreqshoohh (Bld) [Volume fraction]Hematocrit [Volume Fraction] of Blood by Automated count Low42.0-54.0[facility] DaytonHemoglobin [Mass/volume] in Blood Ordered By: Javon Dennis on 43-26-3396Fubxtjprdl (Bld) [Mass/Vol]Hemoglobin [Mass/volume] in XrronCxa18.0-17.0[facility] Hospital DaytonHemoglobin [Mass/volume] in Bloodon 95-55-0705Gzftvtlvbk (Bld) [Mass/Vol]Hemoglobin [Mass/volume] in AqpvkKbb46.0-18.0[facility] DaytonHepatic Panel on 33-78-1402Osachjz [Mass/Vol]3.5 g/dLNormal3.5-5.7The Unc Health Physician GroupComment on above:Performed By: #### BMP, LIPASE, HEPATIC #### [facility] [address] [place] [address] USAAlbumin/Globulin [Mass ratio]1.0 {ratio}NormalThe Unc Health Physician GroupComment on above:Performed By: #### BMP, LIPASE, HEPATIC #### [facility] [address] [place] [address] USAALP [Catalytic activity/Vol]82 U/TAfpvkp09-965Hql [facility] Health Physician GroupComment on above:Performed By: #### BMP, LIPASE, HEPATIC #### [facility] [address] [place] [address] USAALT [Catalytic activity/Vol]20 U/LNormal7-52The Unc Health Physician GroupComment on above:Performed By: #### BMP, LIPASE, HEPATIC #### [facility] [address] [place] [address] USAAST [Catalytic activity/Vol]17 U/OAjxmov36-07Elj [facility] Health Physician GroupComment on above:Performed By: #### BMP, LIPASE, HEPATIC #### [facility] [address] [place] [address] USABilirubin [Mass/Vol]0.4 mg/dLNormal0.3-1.0The Unc Health Physician GroupComment on above:Performed By: #### BMP, LIPASE, HEPATIC #### [facility] [address] [place] [address] USABilirubin,Indirect0.3 mg/dLNormalThe Unc Health Physician GroupComment on above:Performed By: #### BMP, LIPASE, HEPATIC #### [facility] [address] [place] [address] USABilirubin.indirect [Mass/Vol]0.10 mg/dLNormal0.03-0.18The Unc Health Physician GroupComment on above:Performed By: #### BMP, LIPASE, HEPATIC #### [facility] [address] [place] [address] USAGlobulin (S) [Mass/Vol]3.5 g/dLNormalThe Unc Health Physician GroupComment on above:Performed By: #### BMP, LIPASE, HEPATIC #### [facility] [address] [place] [address] USAProtein [Mass/Vol]7.0 g/dLNormal6.4-8.9The Unc Health Physician GroupComment on above:Performed By: #### BMP, LIPASE, HEPATIC #### [facility] [address] [place] [address] USAINR in Platelet poor plasma by Coagulation assayOrdered By: Javon Dennis on 91-30-8951OWL Coag (PPP) [Relative time]INR in Platelet poor plasma by Coagulation assayKindred Hospital DaytonComment on above:INR Therapeutic Range A) Pre- and Peroperative OAT started two weeks before surgery. NOT HIP SURGERY: 1.5 - 2.5 HIP SURGERY: 2 - 3B) Primary and secondary prevention of venous THROMBOSIS: 2 - 3C) Active venous thrombosis, pulmonary embolismand prevention of recurrent venous thrombosis: 2 - 3D) Preve ntion of arterial thromboembolismincluding patients with mechanical heart valves: 3 - 4.5Laboratory - Chemistry and Chemistry - challengeon 07-23-2024 Calcium [Mass/Vol]8.4 mg/dLLow8.5-10.1FSt. Mary's Medical CenterChloride [Moles/Vol]105 mmol/W26-766ZpevykeqrKindred Hospital DaytonCO2 [Moles/Vol]24.7 mmol/L21.0-32.0[facility] DaytonCreatinine [Mass/Vol]0.87 mg/dL 0.70-1.30[facility] DaytonGFR/1.73 sq M.predicted MDRD (S/P/Bld) [Vol rate/Area]mL/min/{1.73_m2}>=60 mL/min/1.73m 2FSt. Mary's Medical CenterGlucose [Mass/Vol]198 mg/kSEfkx69-090TitpqpuczKindred Hospital Dayton Natriuretic peptide B (Bld) [Mass/Vol]232.0 pg/mL<=900.0[facility] DaytonPotassium [Moles/Vol]3.9 mmol/L3.5-5.1FCincinnati Shriners Hospitalodium [Moles/Vol]140 mmol/W916-257OwivkmdnyKindred Hospital DaytonUrea nitrogen [Mass/Vol]20.0 mg/dLHigh7.0-18.0[facility] DaytonUrea nitrogen/Creatinine [Mass ratio]23.0 mg/mgKindred Hospital Dayton Laboratory - Hematology and Cell countson 84-01-9763Saajggxw granulocytes/100 WBC (Bld)0.3 %0.0-0.5FSt. Mary's Medical CenterLaboratory - Microbiology and Antimicrobial susceptibilityon 12-89-9448HUMQ-CoV-2 (COVID-19) RNA JOSEMANUEL+probe Ql (Unsp spec)NegativeNEGATIVEKindred Hospital DaytonComment on above: This test has not been FDA cleared or approved, but has beenauthorized by the FDA under an Emergency Use Authorization(EUA) for use by authorized laboratories certified underIA that meet the requirements to perform moderate or highcomplexity testing. This test has been authorized only forthe detection of proteins from SARS-CoV-2, not for any otherviruses or pathogens. The emergency use of this test isauthorized for the duration of the declaration thatcircumstances exist justifying the authorization ofemergency use of in vitro diagnostic tests for detectionand/or diagnosis of Covid-19 under section 564(b)(1) of theAct, 21 U.S.C. 360bbb-3(b)(1), unless the declaration isterminated or authorization is revoked sooner.Lactic Acidon 23-76-1740Birtds Acid Lvl1.4 mmol/LNormal0.5-2.2Fisher Holy Cross HospitalComment on above: Performed By: #### [id number] #### [facility] [address] [place] [address]Wgrutvgvvr [#/volume] corrected for nucleated erythrocytes in Blood by Automated counOrdered By: Javon Dennis on 69-90-7890CNC corrected for nucl RBC Auto (Bld) [#/Vol]Leukocytes [#/volume] corrected for nucleated erythrocytes in Blood by Automated coun4.1-10.5FSt. Mary's Medical Center Leukocytes [#/volume] corrected for nucleated erythrocytes in Blood by Automated counon 68-08-9096UTY corrected for nucl RBC Auto (Bld) [#/Vol]Leukocytes [#/volume] corrected for nucleated erythrocytes in Blood by Automated coun 4.0-11.0[facility] Hospital DaytonLipaseon 85-00-7100Hytwht [Catalytic activity/Vol]39.0 U/BDnsbls70.0-82.0The Unc Health Physician GroupComment on above:Result Comment: PERFORMED BY: [facility] [address] [place] [address] PATHOLOGIST CARTRIDGE FEEDER ABBY RIVERA M.D.Performed By: #### BMP, LIPASE, HEPATIC #### [facility] [address] [place] [address] USALipase [Enzymatic activity/volume] in Serum or Plasma Ordered By: Javon Dennis on 12-72-9742Nhqapm [Catalytic activity/Vol]Lipase [Enzymatic activity/volume] in Serum or Stztds86.0-82.0[facility] Hospital DaytonLymphocytes Auto (Bld) [#/Vol]Ordered By: Javon Dennis on 78-15-8164Fsspbieseww (Bld) [#/Vol]Lymphocytes [#/volume] in Blood by Automated count1.00-4.8[facility] Hospital DaytonLymphocytes Auto (Bld) [#/Vol]on 36-39-4244Negmhphqtcr (Bld) [#/Vol]Lymphocytes [#/volume] in Blood by Automated count1.2-3.8[facility] DaytonLymphocytes/100 WBC Auto (Bld) Ordered By: Javon Dennis on 38-12-7612Efimmvkovtw/100 WBC (Bld) Lymphocytes/100 leukocytes in Blood by Automated count.[facility] DaytonLymphocytes/100 WBC Auto (Bld)on 40-85-5058Arxrxmhcpmm/100 WBC (Bld)Lymphocytes/100 leukocytes in Blood by Automated count20.5-60.0[facility] Auto (RBC) [Entitic mass]Ordered By: Javon Dennis on 27-06-5175IHQ (RBC) [Entitic mass]MCH [Entitic mass] by Automated count27.5-35.2FMansfield Hospital Auto (RBC) [Entitic mass]on 60-51-9062SID (RBC) [Entitic mass]MCH [Entitic mass] by Automated count25.9-34.0 [facility] Auto (RBC) [Mass/Vol]Ordered By: Javon Dennis on 74-92-1261XUOT (RBC) [Mass/Vol]MCHC [Mass/volume] by Automated count Low32.5-35.6FHolzer Medical Center – JacksonHC Auto (RBC) [Mass/Vol]on 58-66-6364KTPM (RBC) [Mass/Vol]MCHC [Mass/volume] by Automated count29.9-35.2 [facility] Auto (RBC) [Entitic vol]Ordered By: Javon Dennis on 25-98-2347YDE (RBC) [Entitic vol]MCV [Entitic volume] by Automated count83.5-101A[facility] HospitalV Auto (RBC) [Entitic vol]on 47-25-8847KEL (RBC) [Entitic vol]MCV [Entitic volume] by Automated count 80.0-94.0[facility] DaytonMagnesiumon 66-67-3597Eddmwyayg [Mass/Vol]2.3 mg/dLNormal1.3-2.4Fisher [facility] Cross HospitalComment on above: Performed By: #### [id number] #### [facility] [address] [place] [address]Ucabroni distribution width [Entitic volume] in Blood by AutomatedOrdered By: Javon Dennis on 34-46-8000Cqreciry distribution width Auto (Bld) [Entitic vol]Monocyte distribution width [Entitic volume] in Blood by AutomatedHigh0.00-20.00[facility] DaytonComment on above:For adults in ED, MDW > 20.0 may be associated with a higher risk of sepsis during the first 12 hrs of hospital admissionMonocytes Auto (Bld) [#/Vol]Ordered By: Javon Dennis on 28-33-6623Iaquifzzr (Bld) [#/Vol]Automated blood monocyte count0.0-0.8[facility] DaytonMonocytes Auto (Bld) [#/Vol]on 69-97-9573Ezdpudqwv (Bld) [#/Vol]Automated blood monocyte count0.3-0.8[facility] DaytonMonocytes/100 WBC Auto (Bld)Ordered By: Javon Dennis on 28-41-9643Ojmtbqmoo/100 WBC (Bld)Automated monocyte %.[facility] DaytonMonocytes/100 WBC Auto (Bld)on 19-91-5794Srpolfnnn/100 WBC (Bld) Automated monocyte %1.7-12.0[facility] DaytonNatriuretic peptide B [Mass/Vol]Ordered By: Javon Dennis on 62-59-1495Ifwtudpaogh peptide B (Bld) [Mass/Vol]BNP ser/plasHigh5-100[facility] Neutrophils Auto (Bld) [#/Vol]Ordered By: Javon Dennis on 07-23-2024 Neutrophils (Bld) [#/Vol]Neutrophils [#/volume] in Blood by Automated count 1.8-7.7FSt. Mary's Medical CenterNeutrophils Auto (Bld) [#/Vol]on 30-23-6899Weavovbftys (Bld) [#/Vol]Neutrophils [#/volume] in Blood by Automated count1.4-6.5FSt. Mary's Medical CenterNeutrophils/100 WBC Auto (Bld) Ordered By: Javon Dennis on 86-82-7426Cqsbtyxetuo/100 WBC (Bld)Automated neutrophil %.[facility] DaytonNeutrophils/100 WBC Auto (Bld)on 60-69-9198Wzozteqquoo/100 WBC (Bld)Automated neutrophil %43.0-75.0[facility] DaytonNo Panel InformationOrdered By: Javon Dennis on 87-83-6940Qikrmlkca GFR (CKD-EPI)> 60.0 mL/MinKindred Hospital Dayton Pharmacy Creatinine Clearance (Ivyg084.04[facility] DaytonNo Panel Informationon 81-24-7524Gfwrhcu Influenza Type A AntigenNegativeKindred Hospital DaytonComment on above:Negative for Flu A protein antigen. Infection due to Flu Acannot be ruled out. Flu A antigen in thesample may bebelow the detection limit of the test.Bedside Influenza Type B AntigenNegative [facility] Hospital DaytonComment on above:Negative for Flu B protein antigen. Infection due to Flu Bcannot be ruled out. Flu B antigen in thesample may bebelow the detection limit of the test.Eosinophils # (Auto)0.1 10 3/uL 0.0-0.7FSt. Mary's Medical CenterImmature Granulocyte # (Auto)0.02 10 3/uL0.00-0.03[facility] DaytonTroponin I High Ptenuwpduvm58.5 pg/mL4.0-76.1FSt. Mary's Medical CenterComment on above:CUT-OFF POINTS HAVE BEEN ESTABLISHED BASED ON THE FOURTHUNIVERSAL DEFINITION OF MYOCARDIAL INFARCTION. THE UPPERREFERENCE LIMIT (URL) OF TROPONIN, DEFINED THE 99THPERCENTILE OF cTnI DISTRIBUTION IN A REFERENCE POPULATION,HAS BEEN CONFIRMED THE DECISION THRESHOLD FOR MIDIAGNOSIS.99TH PERCENTILE = 76.2 PG/MLNOTE: HIGH-SENSITIVITY TROPONIN ASSAY IS NOT INTENDED TO BEUSED IN ISOLATION BUT SHOULD BE INTERPRETED IN CONJUNCTIONWITH OTHER DIAGNOSTIC AND CLINICAL INFORMATION.Nucleated erythrocytes [Presence] in Blood by Automated countOrdered By: Javon Dennis on 78-41-1879Npbxgoyty RBC Auto Ql (Bld)Nucleated erythrocytes [Presence] in Blood by Automated count0-0.5FSt. Mary's Medical CenterPT & PTTon 16-80-1237bYDB Coag (PPP) [Time]19.6 second(s)Low 25.1-36.5Fisher Holy Cross HospitalComment on above:Result Comment: Parameter 15 days - 4 weeks 1 - [...] the same coagulation reagent and instrumentation as [facility]. Currently there are no coagulation studies available worldwide for children to 14 days, andno normal ranges. Heparin therapeutic range (represented by Anti-Factor Xa activity of 0.2 - 0.4 U/mL) corresponds to PTT of 56.6 - 109.0 sec.Performed By: #### [id number] #### [facility] [address] [place], [place] [address]PAX Coag (PPP) [Relative time]0.95 {INR}Invalid Interpretation CodeFisher Holy Cross HospitalComment on above:Result Comment: INR results are specifically intended to assess patients stabilized on long-term Anticoagulation therapy suggested INR???s ???Less Intensive Anticoagulation??? 2.0 ??? 3.0 Conventional Range 3.0 ??? 4.5Performed By: #### [id number] #### [facility] [address] [place], [place] [address]ON Coag (PPP) [Time]10.6 second(s)Normal9.4-12.5Fisher Holy Cross HospitalComment on above:Result Comment: 15 days - 4 weeks 1 - 5 months 6 -11 months 1 ??? 5 years 6 ??? 10 years 11 -17 years Mean: 11.2 (9.5 ??? 12.6) Mean: 11.0 (9.7 ??? 12.8) Mean: 11.0 (9.8 ??? 13.0) Mean: 11.3 (9.9 ??? 13.4) Mean: 11.7 (10.0 ??? 14.6) Mean: 11.8 (10.0 - 14.1) Pediatric Reference ranges were obtained from a study by Jose Juan Olguin et al. prepared from 1437 samples obtained at 7 different centers using the same coagulation reagent and instrumentation as [facility]. Currently there are no coagulation studies available worldwide for children to 14 days, andno normal ranges.Performed By: #### [id number] #### [facility] [address] [place], [place] [address]Brrvyofa mean volume Auto (Bld) [Entitic vol]Ordered By: Javon Dennis on 12-28-9627Szcksoek mean volume (Bld) [Entitic vol]Platelet mean volume [Entitic volume] in Blood by Automated count6.6-10.1Firelands Regional Medical CenterPlatelet mean volume Auto (Bld) [Entitic vol]on 00-37-2291Slnkdsdt mean volume (Bld) [Entitic vol]Platelet mean volume [Entitic volume] in Blood by Automated count9.5-13.5FSt. Mary's Medical Center Platelets Auto (Bld) [#/Vol]Ordered By: Javon Dennis on 73-97-9891Ejvsizclv (Bld) [#/Vol]Platelets [#/volume] in Blood by Automated nnrty693-477QeezehwqgKindred Hospital DaytonPlatelets Auto (Bld) [#/Vol]on 79-68-1700Uwwpkekwo (Bld) [#/Vol]Platelets [#/volume] in Blood by Automated amcof601-207QgasyqzvqKindred Hospital DaytonPotassium [Moles/volume] in Serum or PlasmaOrdered By: Javon Dennis on 83-82-0104Gmctihaxv [Moles/Vol]Potassium [Moles/volume] in Serum or Plasma3.5-5.1FSt. Mary's Medical CenterProtein [Mass/volume] in Serum or PlasmaOrdered By: Javon Dennis on 06-48-7027Brwqmtg [Mass/Vol]Protein [Mass/volume] in Serum or Plasma6.4-8.9[facility] Prothrombin Time INRon 94-94-4102YOX Coag (PPP) [Relative time]1.0 {INR}Normal The Unc Health Physician GroupComment on above:Result Comment: INR Therapeutic Range A) Pre- and Peroperative OAT started two weeks before surgery. NOT HIP SURGERY: 1.5 - 2.5 HIP SURGERY: 2 - 3 B) Primary and secondary prevention of venous THROMBOSIS: 2 - 3 C) Active venous thrombosis, pulmonary embolism and prevention of recurrent venous thrombosis: 2 - 3 D) Prevention of arterial thromboembolism including patients with mechanical heart valves: 3 - 4.5 PERFORMED BY: [place] [address] PATHOLOGIST CARTRIDGE FEEDER ABBY RIVERA M.D.Performed By: #### BMP, LIPASE, HEPATIC #### [place] [address] USAPT Coag (PPP) [Time]11.4 sNormal9.0-12.9The Unc Health Physician GroupComment on above:Result Comment: A hematocrit value greater than 55% may lead to inaccurate results in coagulation testing. Patients having hematocrit values >55% require a special collection tube for coagulation studies. Please contact the laboratory at [phone] for redraw instructions.Performed By: #### BMP, LIPASE, HEPATIC #### [facility] [address] [place] [address] USAProthrombin time (PT)Ordered By: Javon Dennis on 85-43-3806AT Coag (PPP) [Time]Prothrombin time (PT)9.0-12.9[facility] Hospital DaytonComment on above:A hematocrit value greater than 55% may lead to inaccurate results in coagulation testing. Patientshaving hematocrit values >55% require a special collection tube for coagulation studies. Please contact the laboratory at [phone] for redraw instructions.RBC Auto (Bld) [#/Vol]Ordered By: Javon Dennis on 21-42-6926JRK (Bld) [#/Vol]Erythrocytes [#/volume] in Blood by Automated countLow3.90-5.60[facility] Hospital DaytonRBC Auto (Bld) [#/Vol]on 78-21-7450HPD (Bld) [#/Vol]Erythrocytes [#/volume] in Blood by Automated countLow4.70-6.10[facility] Hospital Companyed Rate Automatedon 17-98-3961FOX (Bld) [Velocity]27 mm/hHigh0-19[facility] HospitalComment on above:Performed By: #### [id number] #### [facility] [address] [place] [address]Ufjdw or plasma albumin/globulin mass ratioOrdered By: Javon Dennis on 33-17-9099Tbfound/Globulin [Mass ratio]Serum or plasma albumin/globulin mass ratioRegency Hospital Companyerum or plasma anion gap determinationOrdered By: Javon Dennis on 81-01-5345Worjj gap [Moles/Vol]Serum or plasma anion gap determination6.0-15.0[facility] Hospital Companyerum or plasma anion gap determinationon 55-96-7143Kbefn gap [Moles/Vol]Serum or plasma anion gap determinationRegency [facility] Companyerum or plasma non-glucuronidated bilirubin measurement (mass/volume) Ordered By: Javon Dennis on 21-24-7257Kddkpuauw.indirect [Mass/Vol]Serum or plasma non-glucuronidated bilirubin measurement (mass/volume)[facility] Companyodium [Moles/volume] in Serum or PlasmaOrdered By: Javon Dennis on 08-31-3877Jdbqaj [Moles/Vol]Sodium [Moles/volume] in Serum or Plasma Ofa642-360BuqvqthjuKindred Hospital DaytonTroponin 0 Hr.on 67-89-5498Yraqyued HS5.00 pg/mLLow15.90-38.40[facility] HospitalComment on above:Result Comment: The 95% CI (Confidence Interval) PPV (Positive Predictive Value) for myocardial infarction in females is 38 pg/mL, in males 51 pg/mL. The results should be used in conjunction with clinical conditions of myocardial infarction. (Access High Sensitivity Troponin I Instructions For Use, Angella Joy, December 2017)Performed By: #### [id number] #### [facility] [address], [place] [address]Ttlhnwcm 1 Hr.on 00-59-5479Aqxotyxa HS5.30 pg/mLLow15.90-38.40 [facility] HospitalComment on above:Order Comment: [id number] Comment: The 95% CI (Confidence Interval) PPV (Positive Predictive Value) for myocardial infarction in females is 38 pg/mL, in males 51 pg/mL. The results should be used in conjunction with clinical conditions of myocardial infarction. (Access High Sensitivity Troponin I Instructions For Use, Angella Joy, December 2017)Performed By: #### [id number] #### [facility] [address], [place] [address]Fcolhssz 3 Hr.on 63-45-2685Xiatmqjp HS5.20 pg/mLLow15.90-38.40 [facility] HospitalComment on above:Result Comment: The 95% CI (Confidence Interval) PPV (Positive Predictive Value) for myocardial infarction in females is 38 pg/mL, in males 51 pg/mL. The results should be used in conjunction with clinical conditions of myocardial infarction. (Access High Sensitivity Troponin I Instructions For Use, Angella Joy, December 2017)Performed By: #### [id number] #### [facility] [address], [place] [address]Mcdgwyxh 6 Hr.on 21-41-0239Owsndnah HS5.70 pg/mLLow15.90-38.40 [facility] HospitalComment on above:Result Comment: The 95% CI (Confidence Interval) PPV (Positive Predictive Value) for myocardial infarction in females is 38 pg/mL, in males 51 pg/mL. The results should be used in conjunction with clinical conditions of myocardial infarction. (Access High Sensitivity Troponin I Instructions For Use, Angella Joy, December 2017)Performed By: #### [id number] #### [facility] [address], [place] [address]Yrmchfzu I High Sensitivityon 28-28-9532Lpvtfyhz I High Jqsbkcsgdrb2Zqaqrw8-53Ehe [facility] Physician GroupComment on above:Result Comment: The Troponin units of report have been changed to meet the Chest Pain Accreditation requirement, element EC5.M1l2. Troponin units are changed from pg/ml to ng/L. Also, the decimal is removed and results are in whole numbers. PERFORMED BY: [place] [address] PATHOLOGIST [employer] ABBY RIVERA M.D.Performed By: #### BMP, LIPASE, HEPATIC #### [facility] [address] [place] [address] USATroponin I High Fifrukuviwr3Skofsz4-23Jdf [facility] Physician GroupComment on above:Result Comment: The Troponin units of report have been changed to meet the Chest Pain Accreditation requirement, element EC5.M1l2. Troponin units are changed from pg/ml to ng/L. Also, the decimal is removed and results are in whole numbers. PERFORMED BY: [place] [id number] PATHOLOGIST [employer] ABBY RIVERA M.D.Performed By: #### BMP, LIPASE, HEPATIC #### [address] [place] [address] USATroponin I.cardiac [Mass/volume] in Serum or Plasma by Detection limit <= 0.01 ng/Ordered By: Javon Dennis on 61-61-2234Okhkentj I.cardiac DL <= 0.01 ng/mL [Mass/Vol]Troponin I.cardiac [Mass/volume] in Serum or Plasma by Detection limit <= 0.01 ng/0-20[facility] Comment on above:The Troponin units of report have been changed to meet the Chest Pain Accreditation requirement, element EC5.M1l2. Troponin units are changed from pg/ml to ng/L. Also, the decimal is removed and results are in whole numbers.Urea nitrogen [Mass/volume] in Serum or PlasmaOrdered By: Javon Dennis on 38-63-4671Symi nitrogen [Mass/Vol]Urea nitrogen [Mass/volume] in Serum or Plasma-[facility]red Hospital DaytonWBC Auto (Bld) [#/Vol]Ordered By: Javon Dennis on 58-73-0839PTY (Bld) [#/Vol] Leukocytes [#/volume] in Blood by Automated count4.1-10.5FSt. Mary's Medical CenterXR Chest Single Viewon 37-35-0620HJ Chest Single ViewExam Date/Time: 07/23/2024 14:29 EDT Reason for Exam: Chest pain Report IMPRESSION: NO ACUTE CARDIOPULMONARY DISEASE. CLINICAL HISTORY: Chest pain COMPARISON: 02/11/2023 FINDINGS: Osseous structures intact. Cardiopericardial silhouette normal. Pulmonary vasculature normal. Lungs clear. Technical Comments: nancy Hair in mGy = na DAP = na Ordering Provider: Lucia Noyola FINAL REPORT Dictated: 07/23/2024 2:32 pm Reji Russell MD Signed (Electronic Signature): 07/23/2024 2:32 pm Signed by: Reji Russell MD Transcribed by: AMBROCIO Technologist: AngellaMccullough-Hyde Memorial HospitaleGFRon 20-40-8270rVHM985 mL/min/1.73 y6Bdimui>=59M[facility]-Hy[facility] Memorial HospitalComment on above:Performed By: #### [id number] #### [facility] [address] [id number] 55-07-445044MB for patient in regards to 3/4 appointment. Patients reflux study has not been completed. Patient need rescheduled.[facility]36 on 60-40-133949Zww new message from 06/20/24NormalUniversCincinnati Children's Hospital Medical Center36NormalUniversCincinnati Children's Hospital Medical Center36on 99-35-023789Cduhnsn from [facility] notified. She states that they will reassess in two weeks. Phone no [phone]g Health – Soin Medical Center36 Called patient - LVM to return call with any questions and to call [facility] to reschedule infusion. Carly will you please call [facility] back with Dr. Choudhary's responseNormalUniZanesville City Hospital36NormalUniZanesville City HospitalTelephoneon [phone] Matt Wolff 1960 Date Provider Department Center 06/17/2024 CARLY MONTANO [facility] RHEUM Keila Heal Family History Family history unknown: YesNormalUniversCincinnati Children's Hospital Medical CenterBasophils Auto (Bld) [#/Vol]on 73-13-8865Lalrjzaix (Bld) [#/Vol]Automated basophil count 0.0-0.1FSt. Mary's Medical CenterBasophils/100 WBC Auto (Bld)on 66-56-7122Qevkcwwib/100 WBC (Bld)Automated basophil %0.2-2.0[facility] DaytonEosinophils/100 WBC Auto (Bld)on 92-76-6562Tdhotyqsicc/100 WBC (Bld)Automated eosinophil %0.9-7.0[facility] Hospital DaytonErythrocyte distribution width Auto (RBC) [Ratio]on 52-57-6345Zrvmtlhbtwn distribution width (RBC) [Ratio]Erythrocyte distribution width [Ratio] by Automated count11.0-15.0 [facility] DaytonEstimated glomerular filtration rate (GFR) non- Americanon 73-41-6063SPY/1.73 sq M.predicted among non-blacks MDRD (S/P/Bld) [Vol rate/Area]Estimated glomerular filtration rate (GFR) non->=60 mL/min/1.73m 2FSt. Mary's Medical CenterGlobulin Calc (S) [Mass/Vol]on 51-37-0618Ivmneveh (S) [Mass/Vol]Serum globulin measurement by calculation (mass/volume)[facility] Hospital DaytonHematocrit Auto (Bld) [Volume fraction]on 70-36-6198Folahdamhb (Bld) [Volume fraction]Hematocrit [Volume Fraction] of Blood by Automated rxdffNyo10.0-54.0[facility] Hospital DaytonHemoglobin [Mass/volume] in Bloodon 31-05-6647Kcxmzxpcxe (Bld) [Mass/Vol]Hemoglobin [Mass/volume] in FokcwFtp63.0-18.0[facility] DaytonINR in Platelet poor plasma by Coagulation assayon 99-30-9065PPM Coag (PPP) [Relative time]INR in Platelet poor plasma by Coagulation assay [facility] DaytonComment on above:DESIRED INR:2.0-3.0 CONDITIONS NOT LISTED BELOW2.5-3.5 FOR PROSTHETIC HEART VALVE REPLACEMENT2.5-3.5 RECURRENT THROMBOSISLaboratory - Chemistry and Chemistry - challengeon 86-12-8461Drmekbb [Mass/Vol]3.1 g/dLLow3.4-5.0[facility] DaytonALP [Catalytic activity/Vol]75 U/O46-537OkktyykqsKindred Hospital DaytonALT [Catalytic activity/Vol]15 U/FHuu04-51UckipzubzKindred Hospital DaytonAST [Catalytic activity/Vol]19 U/D80-71HuqflusttKindred Hospital DaytonBilirubin [Mass/Vol]0.9 mg/dL0.2-1.0[facility] DaytonCalcium [Mass/Vol]8.7 mg/dL 8.5-10.1FSt. Mary's Medical CenterChloride [Moles/Vol]103 mmol/L98-107 [facility] DaytonCO2 [Moles/Vol]29.8 mmol/L21.0-32.0[facility] DaytonCreatinine [Mass/Vol]0.94 mg/dL0.70-1.30[facility] DaytonGFR/1.73 sq M.predicted MDRD (S/P/Bld) [Vol rate/Area] mL/min/{1.73_m2}>=60 mL/min/1.73m 2FSt. Mary's Medical CenterGlucose [Mass/Vol]88 mg/bE65-261SpvvvdoqsKindred Hospital DaytonPotassium [Moles/Vol] 4.3 mmol/L3.5-5.1FSt. Mary's Medical CenterProtein [Mass/Vol]7.2 g/dL 6.4-8.2FCincinnati Shriners Hospitalodium [Moles/Vol]140 mmol/L717-007 [facility] DaytonUrea nitrogen [Mass/Vol]18.0 mg/dL7.0-18.0 [facility] DaytonUrea nitrogen/Creatinine [Mass ratio]19.1 mg/mg [facility] DaytonLaboratory - Hematology and Cell countson 29-55-1992Zchevmmp granulocytes/100 WBC (Bld)0.4 %0.0-0.5FSt. Mary's Medical CenterLeukocytes [#/volume] corrected for nucleated erythrocytes in Blood by Automated counon 04-97-3187XLF corrected for nucl RBC Auto (Bld) [#/Vol]Leukocytes [#/volume] corrected for nucleated erythrocytes in Blood by Automated coun4.0-11.0[facility] DaytonLymphocytes Auto (Bld) [#/Vol]on 63-34-7913Jcxryjxyayl (Bld) [#/Vol]Lymphocytes [#/volume] in Blood by Automated count1.2-3.8[facility] DaytonLymphocytes/100 WBC Auto (Bld)on 61-22-6289Skaohzhhccy/100 WBC (Bld)Lymphocytes/100 leukocytes in Blood by Automated gbsljMcc12.5-60.0[facility] DaytonMCH Auto (RBC) [Entitic mass]on 41-95-0374CPT (RBC) [Entitic mass]MCH [Entitic mass] by Automated count25.9-34.0[facility] DaytonMCHC Auto (RBC) [Mass/Vol]on 81-80-3970JFIK (RBC) [Mass/Vol]MCHC [Mass/volume] by Automated count29.9-35.2FSt. Mary's Medical CenterMCV Auto (RBC) [Entitic vol]on 58-78-6985XGY (RBC) [Entitic vol]MCV [Entitic volume] by Automated countHigh 80.0-94.0[facility] DaytonMonocytes Auto (Bld) [#/Vol]on 02-96-7268Vrzkxclyu (Bld) [#/Vol]Automated blood monocyte countHigh0.3-0.8 [facility] DaytonMonocytes/100 WBC Auto (Bld)on 06-16-2024 Monocytes/100 WBC (Bld)Automated monocyte %High1.7-12.0[facility] DaytonNeutrophils Auto (Bld) [#/Vol]on 63-58-9895Auuiawidwmo (Bld) [#/Vol]Neutrophils [#/volume] in Blood by Automated count1.4-6.5FSt. Mary's Medical CenterNeutrophils/100 WBC Auto (Bld)on 06-16-2024 Neutrophils/100 WBC (Bld)Automated neutrophil %43.0-75.0[facility] DaytonNo Panel Informationon 38-67-4532Ithxkkbfriu # (Auto)0.2 10 3/uL 0.0-0.7FSt. Mary's Medical CenterImmature Granulocyte # (Auto)0.03 10 3/uL0.00-0.03[facility] DaytonPlatelet mean volume Auto (Bld) [Entitic vol]on 23-54-6365Yzliwlgk mean volume (Bld) [Entitic vol]Platelet mean volume [Entitic volume] in Blood by Automated count9.5-13.5FSt. Mary's Medical CenterPlatelets Auto (Bld) [#/Vol]on 70-66-3533Efntdykut (Bld) [#/Vol] Platelets [#/volume] in Blood by Automated wstod029-736LaufomqltKindred Hospital DaytonProthrombin time (PT)on 10-56-7691KJ Coag (PPP) [Time]Prothrombin time (PT)9.0-11.6FSt. Mary's Medical CenterRBC Auto (Bld) [#/Vol]on 26-75-6517JMN (Bld) [#/Vol]Erythrocytes [#/volume] in Blood by Automated count Low4.70-6.10[facility] Companyerum or plasma albumin/globulin mass ratioon 48-26-5542Mhseqqm/Globulin [Mass ratio]Serum or plasma albumin/globulin mass ratioRegency Hospital Companyerum or plasma anion gap determinationon 48-33-8143Jnfat gap [Moles/Vol]Serum or plasma anion gap determinationKindred Hospital Dayton36on 01-72-931616Neekhut called for discharge call back, no answer, unable to leave message due to inbox full .NormalUnSelect Medical Specialty Hospital - CantonDocumentationon 52-12-6494VnbpjrjnfzsiqWljrolKmfcuehrrm [facility] CenterTelephoneon 95-73-9507PohnkpxemOteezwZehemgbror [facility]30on NormalUnSelect Medical Specialty Hospital - Canton30NormalUniversity [facility] Medical CenterDSon 07-31-6940IHHbgzxmBgejwkizqq [facility] Medical CenterDocumentationon [id number] Matt Wolff 1960 M Date Provider Department [place] 06/13/2024 [id number]-URCWOOMAGDI CANDELARIA [facility] C[facility] Family History Family history unknown: YesNormalUniversity of Saint David'S Round Rock Medical CenterPOCT GLUCOSE METER UNSOLICITED RESULTSon 30-16-4650Mhadiki [Mass/Vol]128 mg/dUDemp42-452 [facility] Columbus SouthComment on above:Order Comment: Waived Testing in the ED is performed under the ED CLIA certificate #[id number].Result Comment: [id number] By: #### [id number] ####[facility] (BEAKER)[address] [place], [place] [address]Claurgz [Mass/Vol]141 mg/rSSbfs20-458AlqdsalfveSelect Medical Specialty Hospital - CantonComment on above:Order Comment: Waived Testing in the ED is performed under the ED CLIA certificate #[id number].Result Comment: [email or web address] Performed By: #### [id number] ####[facility] (BEAKER)[address] [place] [address]84rz 89-76-030211Hnr patient is Moderately Stable - Low risk of patient condition declining or worsening The patient's goals for the shift include comfort, rest The clinical goals for the shift include VSS, safetyNormalUniversity of Saint David'S [facility] Center30The patient is Moderately Stable - Low risk of patient condition declining or worsening The patient's goals for the shift include comfort, rest The clinical goals for the shift include VSSNormalUniversity of Saint David'S Round Rock Medical CenterBASIC METABOLIC PANELon 30-35-9927Rimcs gap [Moles/Vol]13 mmol/LNormal7-20 [facility] SouthComment on above:Performed By: #### [id number] ####[facility] ([facility] [address]Epnpgct [Mass/Vol]8.3 mg/dLLow8.6-10.3UnSelect Medical Specialty Hospital - CantonComment on above:Performed By: #### [id number] ####[facility] ([facility] [place] [address]Ilnsdxjz [Moles/Vol]99 mmol/JOpotmn05-303KatwojohbtSelect Medical Specialty Hospital - CantonComment on above:Performed By: #### [id number] ####[facility] ([facility] [place] [address]PW0 [Moles/Vol]29 mmol/EZdpcny96-79 [facility] SouthComment on above:Performed By: #### [id number] ####[facility] ([facility] [place] [address]Utyyrtwpfo [Mass/Vol]1.16 mg/dLNormal0.70-1.30UnSelect Medical Specialty Hospital - CantonComment on above:Performed By: #### [id number] ####[facility] ([facility] [place] [address]MJIFZSTRLG FILTRATION RATE ML/MIN/1.73 SQ M.PWQWWIKDO83.2 mL/min/1.73m*2Normal>60.0UnSelect Medical Specialty Hospital - CantonComment on above: Result Comment: The [facility]???s estimated glomerular filtration rate (eGFR) will no [...] potential consequences that do not disproportionately affect anyone group of individuals.Performed By: #### [id number] ####[facility] ([facility] [place], [place] [address]Avlobae [Mass/Vol]100 mg/bIVdqklg54-436RenimujgafSelect Medical Specialty Hospital - CantonComment on above:Performed By: #### [id number] ####[facility] ([facility] [place] [place], [place] [address]Ulyxaigqi [Moles/Vol]3.7 mmol/LNormal3.5-5.1UnSelect Medical Specialty Hospital - CantonComment on above:Performed By: #### [id number] ####[facility] ([facility] [place] [address] Sodium [Moles/Vol]137 mmol/ITndemm634-737VatqccqndfSelect Medical Specialty Hospital - Canton Comment on above:Performed By: #### [id number] ####[facility] ([facility] [place], [place] [address]Shia nitrogen [Mass/Vol]40 mg/dLHigh7-25UnSelect Medical Specialty Hospital - CantonComment on above:Performed By: #### [id number] ####[facility] ([facility] [place] [place], [place] [address]HQFN NITROGEN/CREATININE (MASS RATIO) IN SER/PLAS34.5NormalUniversCincinnati Children's Hospital Medical CenterComment on above:Performed By: #### [id number] ####[facility] ([facility] [place] [place], [place] [address]PLDM GLUCOSE METER UNSOLICITED RESULTSon 71-02-4819Mpijiif [Mass/Vol]121 mg/jTFjbd19-756DhsokaotusMemorial Health System Marietta Memorial Hospital CenterComment on above:Order Comment: Waived Testing in the ED is performed under the ED CLIA certificate #[id number].Result Comment: jluisPerformed By: #### [id number] ####[facility] (BEAKER)[address], [place] [address]Toyfsgj [Mass/Vol]203 mg/jXPpil43-901FpdvlaoarzSelect Medical Specialty Hospital - CantonComment on above:Order Comment: Waived Testing in the ED is performed under the ED CLIA certificate #[id number].Result Comment: [id number] By: #### [id number] ####[facility] (BE[facility]ER)[address] [place], [place] [address]Fzjbesy [Mass/Vol]124 mg/rFSimt59-368TuagqmeqneSelect Medical Specialty Hospital - CantonComment on above:Order Comment: Waived Testing in the ED is performed under the ED CLIA certificate #[id number].Result Comment: lubvced2Dkvlxvsgv By: #### [id number] ####[facility] (BEAKER)[address] [place], [place] [address]Glehaeo [Mass/Vol]98 mg/hLFfmqiq78-668BulsceeqzxSelect Medical Specialty Hospital - CantonComment on above:Order Comment: Waived Testing in the ED is performed under the ED CLIA certificate #[id number].Result Comment: kcmgqef6Fdxmadirc By: #### [id number] ####[facility] ([facility]ER)[address] [place], [place] [address]dy 06-11-2024 30NormalUniversCincinnati Children's Hospital Medical Center30The patient is Moderately Stable - Low risk of patient condition declining or worsening The patient's goals for the shift include comfort, rest The clinical goals for the shift include VSSNormalUniversCincinnati Children's Hospital Medical CenterPOCT GLUCOSE METER UNSOLICITED RESULTSon 80-45-2934Lytytls [Mass/Vol]105 mg/tZSexhqn74-540CkprjymvseSelect Medical Specialty Hospital - CantonComment on above:Order Comment: Waived Testing in the ED is performed under the ED CLIA certificate #[id number].Result Comment: joshodiPerformed By: #### [id number] ####[facility] ([facility]ER)[address] [place], [place] [address]Xbaderc [Mass/Vol]158 mg/dLHigh 70-105UnSelect Medical Specialty Hospital - CantonComment on above:Order Comment: Waived Testing in the ED is performed under the ED CLIA certificate #[id number].Result Comment: rektyxz5Zjikcyjqg By: #### [id number] ####[facility] (BEBANNER)[address] [place], [place] [address]Uhmmvor [Mass/Vol]118 mg/wNCbfu64-037BmurjwqpqxSelect Medical Specialty Hospital - CantonComment on above:Order Comment: Waived Testing in the ED is performed under the ED CLIA certificate #[id number].Result Comment: [email or web address] Performed By: #### [id number] ####[facility] ([facility] [place], [place] [address]Akqlsur [Mass/Vol]129 mg/cYJokb43-743XtksurtsjqSelect Medical Specialty Hospital - CantonComment on above:Order Comment: Waived Testing in the ED is performed under the ED CLIA certificate #[id number].Result Comment: [email or web address] Performed By: #### [id number] ####[facility] ([facility] [place], [place] [address]sf 79-98-862845SdpsxeRvsbeoujgs of [place] [facility] Frfvfo85 NormalUnSelect Medical Specialty Hospital - CantonBASIC METABOLIC PANELon 01-94-3262Sickt gap [Moles/Vol]11 mmol/LNormal7-20UnSelect Medical Specialty Hospital - CantonComment on above:Performed By: #### [id number] ####[facility] (BEAKER)[address] [place], [place] [address]Wzlhkcm [Mass/Vol]8.6 mg/dLNormal8.6-10.3UnSelect Medical Specialty Hospital - CantonComment on above:Performed By: #### [id number] ####[facility] (BEAKER)[address] [place], [place] [address]Vevbvsja [Moles/Vol]101 mmol/LNormal 98-107UnSelect Medical Specialty Hospital - CantonComment on above:Performed By: #### [id number] ####[facility] ([facility] [place] [address]OM8 [Moles/Vol]30 mmol/EBsplua62-73AsbrhiplsoSelect Medical Specialty Hospital - CantonComment on above:Performed By: #### [id number] ####[facility] ([facility] [place] [address]Gyfkzichxp [Mass/Vol]1.02 mg/dLNormal0.70-1.30UnSelect Medical Specialty Hospital - CantonComment on above:Performed By: #### [id number] ####[facility] ([facility] [place] [address]ULBIKNMAVT FILTRATION RATE ML/MIN/1.73 SQ M.XXGWYRUYH37.1 mL/min/1.73m*2Normal>60.0UnSelect Medical Specialty Hospital - CantonComment on above:Result Comment: The [facility]???s estimated glomerular filtration rate (eGFR) will no [...] potential consequences that do not disproportionately affect anyone group of individuals.Performed By: #### [id number] ####[facility] ([facility] [place] [address]Onywenj [Mass/Vol]105 mg/iXQstw61-034LdrdtrtalbSelect Medical Specialty Hospital - CantonComment on above:Performed By: #### [id number] ####[facility] ([facility] [place] [address]Ibmjnggqz [Moles/Vol]3.8 mmol/LNormal3.5-5.1UnSelect Medical Specialty Hospital - CantonComment on above:Performed By: #### [id number] ####[facility] ([facility] [place] [address]Vjughz [Moles/Vol]138 mmol/L Adinjd356-416DwqljiatomSelect Medical Specialty Hospital - CantonComment on above:Performed By: #### [id number] ####[facility] ([facility] [place] [address]Pske nitrogen [Mass/Vol]33 mg/dLHigh7-25UnSelect Medical Specialty Hospital - CantonComment on above:Performed By: #### [id number] ####[facility] ([facility] [place] [address]QEPW NITROGEN/CREATININE (MASS RATIO) IN SER/PLAS32.4Noal [facility] - Columbus SouthComment on above:Performed By: #### [id number] ####[facility] ([facility] [place] [address]HYHJQOVsz 47-35-7937VQUJIVAVnezjgIgjjtzwfbn [facility] Medical CenterPOCT GLUCOSE METER UNSOLICITED RESULTSon 31-08-3319Wynelei [Mass/Vol]200 mg/oKVxon41-002SvvongmwonSelect Medical Specialty Hospital - CantonComment on above:Order Comment: Waived Testing in the ED is performed under the ED CLIA certificate #[id number].Result Comment: avess Performed By: #### [id number] ####[facility] ([facility] [place] [address]Fscgicf [Mass/Vol]167 mg/cPGesh96-715SmjowaezvhSelect Medical Specialty Hospital - CantonComment on above:Order Comment: Waived Testing in the ED is performed under the ED CLIA certificate #[id number].Result Comment: [email or web address] Performed By: #### [id number] ####[facility] ([facility], [place] [address]Elvcytt [Mass/Vol]116 mg/oPXwkc34-393RzpmregappSelect Medical Specialty Hospital - CantonComment on above:Order Comment: Waived Testing in the ED is performed under the ED CLIA certificate #[id number].Result Comment: [email or web address] Performed By: #### [id number] ####[facility] (BEAKER)[address] [place], [place] [address]Wfqaral [Mass/Vol]125 mg/ePDbos40-302RnbsctvwrpSelect Medical Specialty Hospital - CantonComment on above:Order Comment: Waived Testing in the ED is performed under the ED CLIA certificate #[id number].Result Comment: bflood Performed By: #### [id number] ####[facility] (BEAKER)[address] [place], [place] [address]ANJWQBS D 1,25 DIHYDROXYon 30-86-9433EDHADAR D 1,25-DIHYDROXY 19.5 pg/mLLow19.9-79.3UnSelect Medical Specialty [facility] - CantonComment on above:Result Comment: INTERPRETIVE INFORMATION: Vitamin D, 1,25-DihydroxyThis test is primarily indicatedduring patient evaluation forhypercalcemia and renal failure. A normal result does not rule outVitamin D deficiency. The recommended test for diagnosing VitaminD deficiency is Vitamin D 25-hydroxy.Performed By: [facility] [place], [place] [address]Rleskloimy Director: Kamaljit Pete MD, PhDCLIA Number: [id number] By: #### [id number] ####[facility] (BEAKER)[address] [place], [place] [address]26sq NormalUnSelect Medical Specialty [facility] - [facility]on30NormalUniversity [facility]30NormalUniversity [facility] Medical CenterBASIC METABOLIC PANELon 23-98-2809Ygwon gap [Moles/Vol]12 mmol/LNormal7-20UnSelect Medical Specialty Hospital - CantonComment on above:Performed By: #### [id number] ####[facility] (BEAKER)[address] [place], [place] [address]Dhoohrk [Mass/Vol]9.6 mg/dLNormal 8.6-10.3UnSelect Medical Specialty Hospital - CantonComment on above:Performed By: #### [id number] ####[facility] (BEAKER)[address] [place], [place] [address]Ygwxxfhk [Moles/Vol]97 mmol/GVck23-323BajpmyzfvpSelect Medical Specialty Hospital - CantonComment on above:Performed By: #### [id number] ####[facility] ([facility] [place] [address]QG8 [Moles/Vol]33 mmol/HIymx76-77HtdhftxbdcSelect Medical Specialty Hospital - CantonComment on above:Performed By: #### [id number] ####[facility] ([facility] [place] [address]Gtltfvxjwx [Mass/Vol]1.11 mg/dLNormal 0.70-1.30UnSelect Medical Specialty Hospital - CantonComment on above:Performed By: #### [id number] ####[facility] ([facility] [place], [place] [address]JDAXXXRRUZ FILTRATION RATE ML/MIN/1.73 SQ M.YLBASUPHL49.1 mL/min/1.73m*2Normal>60.0 [facility] SouthComment on above:Result Comment: The [facility]???s estimated glomerular filtration rate (eG FR) will no longer include consideration of race [...] potential consequences that do not disproportionately affect anyone group of individuals. Performed By: #### [id number] ####[facility] ([facility] [place], [place] [address]Crpjqau [Mass/Vol]110 mg/yAJtff19-366ZnmqfiharrSelect Medical Specialty Hospital - CantonComment on above:Performed By: #### [id number] ####[facility] ([facility] [place], [place] [address]Owblhaxlt [Moles/Vol]4.2 mmol/LNormal 3.5-5.1UnSelect Medical Specialty Hospital - CantonComment on above:Performed By: #### [id number] ####[facility] ([facility] [place], [place] [address]Njhkkl [Moles/Vol]138 mmol/ZOneagt548-793AdipcepfatSelect Medical Specialty Hospital - CantonComment on above:Performed By: #### [id number] ####[facility] ([facility] [place], [place] [address]Dtwb nitrogen [Mass/Vol]29 mg/dLHigh7-25UnSelect Medical Specialty Hospital - CantonComment on above:Performed By: #### [id number] ####[facility] ([facility] [place], [place] [address]VKIN NITROGEN/CREATININE (MASS RATIO) IN SER/PLAS26.1NormalUnSelect Medical Specialty Hospital - CantonComment on above: Performed By: #### [id number] ####[facility] ([facility] [place], [place] [address]Chisz gap [Moles/Vol]10 mmol/LNormal7-20UnSelect Medical Specialty Hospital - CantonComment on above:Performed By: #### [id number] ####[facility] ([facility] [place], [place] [address]Vchrcrk [Mass/Vol]9.1 mg/dLNormal 8.6-10.3UnSelect Medical Specialty Hospital - CantonComment on above:Performed By: #### [id number] ####[facility] ([facility] [place], [place] [address]Eoproomc [Moles/Vol]99 mmol/ZOtvdoi79-434YkvdracgamSelect Medical Specialty Hospital - CantonComment on above:Performed By: #### [id number] ####[facility] ([facility] [place], [place] [address]JF0 [Moles/Vol]33 mmol/SMhzy59-59UzotjyspblSelect Medical Specialty Hospital - CantonComment on above:Performed By: #### [id number] ####[facility] ([facility] [place], [place] [address]Rfbcyloadf [Mass/Vol]1.10 mg/dLNormal 0.70-1.30UnSelect Medical Specialty Hospital - CantonComment on above:Performed By: #### [id number] ####[facility] ([facility] [place] [address]JCYXNRMUEH FILTRATION RATE ML/MIN/1.73 SQ M.SZSOFLAZA78.9 mL/min/1.73m*2Normal>60.0 [facility] SouthComment on above:Result Comment: The [facility]???s estimated glomerular filtration rate (eG FR) will no longer include consideration of race [...] potential consequences that do not disproportionately affect anyone group of individuals. Performed By: #### [id number] ####[facility] ([facility] [place] [address]Puqydgi [Mass/Vol]94 mg/rUZcwlgb93-175BipwccyzuuSelect Medical Specialty Hospital - CantonComment on above:Performed By: #### [id number] ####[facility] ([facility] [place], [place] [address]Ytqqmajvz [Moles/Vol]4.1 mmol/LNormal 3.5-5.1UnSelect Medical Specialty Hospital - CantonComment on above:Performed By: #### [id number] ####[facility] ([facility] [place], [place] [address]Pnerdj [Moles/Vol]138 mmol/KLaouml915-980DvqfhckfjxSelect Medical Specialty Hospital - CantonComment on above:Performed By: #### [id number] ####[facility] ([facility] [place], [place] [address]Iqjz nitrogen [Mass/Vol]30 mg/dLHigh7-25UnSelect Medical Specialty Hospital - CantonComment on above:Performed By: #### [id number] ####[facility] ([facility] [place], [place] [address]LELU NITROGEN/CREATININE (MASS RATIO) IN SER/PLAS27.3NormalUniversCincinnati Children's Hospital Medical CenterComment on above: Performed By: #### [id number] ####[facility] ([facility] [place] [address]JKPXJSVxt 92-20-9912DJMQDKGKvgsowBwylpfpiln of [facility] HEMOGLOBIN AND HEMATOCRIT, BLOODon 04-62-7580Tjcdgntkyv (Bld) [Volume fraction] 36.4 %Low39.0-55.0UnSelect Medical Specialty Hospital - CantonComment on above:Performed By: #### [id number] ####[facility] ([facility] [place] [address] Hemoglobin (Bld) [Mass/Vol]11.4 g/dLLow13.0-17.0UnSelect Medical Specialty Hospital - CantonComment on above:Performed By: #### [id number] ####[facility] ([facility] [place] [address]AVQDNHKMEca 71-10-4022Eutgmqbga [Mass/Vol]2.3 mg/dLNormal1.9-2.7UnSelect Medical Specialty Hospital - CantonComment on above:Performed By: #### [id number] ####[facility] ([facility] [place], [place] [address]Imkidmzah [Mass/Vol]2.3 mg/dLNormal1.9-2.7UnSelect Medical Specialty Hospital - CantonComment on above:Performed By: #### [id number] ####[facility] ([facility] [place], [place] [address]SEDZ GLUCOSE METER UNSOLICITED RESULTSon 67-88-8082Xqmhzaf [Mass/Vol]106 mg/lIAirv03-361OvrzayhdluSelect Medical Specialty Hospital - CantonComment on above:Order Comment: Waived Testing in the ED is performed under the ED CLIA certificate #[id number].Result Comment: [email or web address] Performed By: #### [id number] ####[facility] ([facility] [place], [place] [address]Oskanzd [Mass/Vol]132 mg/ySYxvx63-932YlrbjfrjqfSelect Medical Specialty Hospital - CantonComment on above:Order Comment: Waived Testing in the ED is performed under the ED CLIA certificate #[id number].Result Comment: [email or web address] Performed By: #### [id number] ####[facility] ([facility] [place], [place] [address]Ihitcgp [Mass/Vol]178 mg/oGGiqo19-065RxepdbpcdlSelect Medical Specialty Hospital - CantonComment on above:Order Comment: Waived Testing in the ED is performed under the ED CLIA certificate #[id number].Result Comment: [email or web address] Performed By: #### [id number] ####[facility] ([facility] [place], [place] [address]Burulii [Mass/Vol]113 mg/bOGvbx93-193CitlbotmapSelect Medical Specialty Hospital - CantonComment on above:Order Comment: Waived Testing in the ED is performed under the ED CLIA certificate #[id number].Result Comment: [email or web address] Performed By: #### [id number] ####[facility] ([facility] [facility]BL[facility], [place] [address]BFIEQSD B12on 27-39-8819Xgeddpfyt (Vitamin B12) [Mass/Vol]344 pg/bEOtpriu614-403OaogbzpmxoSelect Medical Specialty Hospital - CantonComment on above:Result Comment: REFERENCE RANGES:180-914 pg/mL Imuxju847-846 pg/mL Indeterminate<145 pg/mL DeficientPerformed By: #### [id number] ####[facility] ([facility] [place], [place] [address]59vv 64-33-324493JwjjcwYiflqyoacp [facility]30NormalUniversity [facility]30NormalUniversity [facility] Medical CenterB-TYPE NATRIURETIC PEPTIDEon 76-15-1282Yefvhjjxlsr peptide B (Bld) [Mass/Vol]22 pg/mLNormal0-100UnSelect Medical Specialty Hospital - CantonComment on above:Performed By: #### [id number] ####[facility] ([facility] [facility], [place] [address]QZKML METABOLIC PANELon 64-24-9357Npgmd gap [Moles/Vol]12 mmol/LNormal7-20UnSelect Medical Specialty Hospital - CantonComment on above:Performed By: #### [id number] ####[facility] ([facility] [place] [address] Calcium [Mass/Vol]8.8 mg/dLNormal8.6-10.3UnSelect Medical Specialty [facility] [place] Comment on above:Performed By: #### [id number] ####[facility] ([facility] [place], [place] [address]Hdexwmtg [Moles/Vol]100 mmol/YSwexma70-693 [facility] SouthComment on above:Performed By: #### [id number] ####[facility] ([facility] [place], [place] [address]QY5 [Moles/Vol] 28 mmol/DHidofm10-14NirjbffxwiSelect Medical Specialty Hospital - CantonComment on above: Performed By: #### [id number] ####[facility] ([facility] [place], [place] [address]Rrryquldrv [Mass/Vol]1.20 mg/dLNormal0.70-1.30UnSelect Medical Specialty Hospital - CantonComment on above:Performed By: #### [id number] ####[facility] ([facility] [place], [place] [address]AWNDUVHMJA FILTRATION RATE ML/MIN/1.73 SQ M.LPYCKRIWC74.4 mL/min/1.73m*2Normal>60.0UnSelect Medical Specialty [facility] [place] Comment on above:Result Comment: The [facility]???s estimated glomerular filtration rate (eGFR) will no longer include consideration of race in its calculation. The [employer]???s eGFR Task Force developed new recommendations for the estimation of the glomerular filtration ra te in the [place] They recommend immediate implementation of the new equation refit without the race variable in all laboratories because the calculation does not include race. In addition to not including race in the calculation and reporting, it included diversity in its development, and has acceptable performance characteristics and potential consequences that do not disproportionately affect anyone group of individuals.Performed By: #### [id number] ####[facility] ([facility] [place], [place] [address]Ypnvqlg [Mass/Vol]140 mg/zILler41-329KqaxriinnoSelect Medical Specialty Hospital - CantonComment on above:Performed By: #### [id number] ####[facility] ([facility] [place], [place] [address]Gzjfafwjz [Moles/Vol]4.4 mmol/LNormal3.5-5.1UnSelect Medical Specialty Hospital - CantonComment on above:Performed By: #### [id number] ####[facility] ([facility] [place], [place] [address]Ignjya [Moles/Vol]136 mmol/L Nvvpse314-300HmamqkqhptSelect Medical Specialty Hospital - CantonComment on above:Performed By: #### [id number] ####[facility] ([facility] [place], [place] [address]Jglm nitrogen [Mass/Vol]27 mg/dLHigh7-25UnSelect Medical Special[facility] Hospital - CantonComment on above:Performed By: #### [id number] ####[facility] ([facility] [place], [place] [address]DAVU NITROGEN/CREATININE (MASS RATIO) IN SER/PLAS22.5Normal [facility] SouthComment on above:Performed By: #### [id number] ####[facility] ([facility] [place], [place] [address]Vpghq gap [Moles/Vol]11 mmol/LNormal7-20UnSelect Medical [facility] - CantonComment on above:Performed By: #### [id number] ####[facility] ([facility] [place], [place] [address]Rabnivo [Mass/Vol]8.9 mg/dLNormal8.6-10.3UnSelect Medical Special[facility] Hospital - CantonComment on above:Performed By: #### [id number] ####[facility] ([facility] [place], [place] [address]Upiwxbyc [Moles/Vol]99 mmol/LNormal 98-107UnSelect Medical Special[facility] Hospital - CantonComment on above:Performed By: #### [id number] ####[facility] ([facility] [place] [address]FO4 [Moles/Vol]33 mmol/CTuvt71-87WayznctdpzSelect Medical Specialty Hospital - CantonComment on above:Performed By: #### [id number] ####[facility] ([facility] [place] [address]Iephcfuvsm [Mass/Vol]1.14 mg/dLNormal0.70-1.30UnSelect Medical Specialty Hospital - CantonComment on above:Performed By: #### [id number] ####[facility] ([facility] [place] [address]UHKYWNFDRO FILTRATION RATE ML/MIN/1.73 SQ M.VSGVCKTIX77.7 mL/min/1.73m*2Normal>60.0UnSelect Medical Specialty Hospital - CantonComment on above:Result Comment: The [facility]???s estimated glomerular filtration rate (eGFR) will no [...] potential consequences that do not disproportionately affect anyone group of individuals.Performed By: #### [id number] ####[facility] ([facility] [place] [address]Lrikzro [Mass/Vol]147 mg/cRZxjz95-130YioztoyczuSelect Medical Specialty Hospital - CantonComment on above:Performed By: #### [id number] ####[facility] ([facility] [place] [address]Ozxxuisgd [Moles/Vol]4.0 mmol/LNormal3.5-5.1UnSelect Medical Special[facility] Hospital - CantonComment on above:Performed By: #### [id number] ####[facility] ([facility] [place] [address]Wbnfre [Moles/Vol]139 mmol/L Lslycc897-523KzlvpdnmtaSelect Medical Specialty Hospital - CantonComment on above:Performed By: #### [id number] ####[facility] (BEAKER)[address] [place], [place] [address]Xgmz nitrogen [Mass/Vol]26 mg/dLHigh7-25UnSelect Medical Special[facility] Hospital - CantonComment on above:Performed By: #### [id number] ####[facility] (BEAKER)[address] [place], [place] [address]RCJY NITROGEN/CREATININE (MASS RATIO) IN SER/PLAS22.8Normal [facility] SouthComment on above:Performed By: #### [id number] ####[facility] (BEAKER)[address] [place], [place] [address]Hhujs gap [Moles/Vol]11 mmol/LNormal7-20UnSelect Medical Special[facility] Hospital - CantonComment on above:Performed By: #### [id number] ####[facility] (BEAKER)[address] [place], [place] [address]Wedprsj [Mass/Vol]8.6 mg/dLNormal8.6-10.3UnSelect Medical Specialty Hospital - CantonComment on above:Performed By: #### [id number] ####[facility] (BEAKER)[address] [place], [place] [address]Sgktdwzp [Moles/Vol]101 mmol/LNormal 98-107UnSelect [facility] Special[facility] - CantonComment on above:Performed By: #### [id number] ####[facility] (BEAKER)[address] [place], [place] [address]YE9 [Moles/Vol]30 mmol/XOaomlf83-93HhygetbiocSelect Medical Specialty Hospital - CantonComment on above:Performed By: #### [id number] ####[facility] (BEAKER)[address] [place], [place] [address]Dxuswjjbwc [Mass/Vol]1.29 mg/dLNormal0.70-1.30UnSelect Medical Special[facility] Hospital - CantonComment on above:Performed By: #### [id number] ####[facility] (BEAKER)[address] [place], [place] [address]GFVWXPNLHT FILTRATION RATE ML/MIN/1.73 SQ M.MYYNPVMPU72.7 mL/min/1.73m*2Normal>60.0UnSelect Medical Specialty Hospital - CantonComment on above:Result Comment: The [facility]???s estimated glomerular filtration rate (eGFR) will no [...] potential consequences that do not disproportionately affect anyone group of individuals.Performed By: #### [id number] ####[facility] ([facility] [facility], [place] [address]Xjgozbq [Mass/Vol]88 mg/fYEjiffr34-750ApdwqjkspjSelect Medical Specialty Hospital - CantonComment on above:Performed By: #### LAB15 ####[facility] ([facility] [place], [place] [address]Jclpcjuoo [Moles/Vol]4.2 mmol/LNormal3.5-5.1UnSelect Medical Special[facility] - CantonComment on above:Performed By: #### LAB15 ####[facility] ([facility] [facility], [place] [address]Qnabln [Moles/Vol]138 mmol/L Vwkfxe632-149LvznujgqjvSelect Medical Specialty Hospital - CantonComment on above:Performed By: #### [id number] ####[facility] ([facility] ArrivelyMARIETTA [place], [place] [address]Llga nitrogen [Mass/Vol]32 mg/dLHigh7-25UnSelect Medical Specialty [facility] - CantonComment on above:Performed By: #### [id number] ####[facility] ([facility] [facility], [place] [address]UKIL NITROGEN/CREATININE (MASS RATIO) IN SER/PLAS24.8Normal [facility] SouthComment on above:Performed By: #### [id number] ####[facility] ([facility] [place], [place] [address]Ykdbk gap [Moles/Vol]11 mmol/LNormal7-20UnSelect Medical Special[facility] - CantonComment on above:Performed By: #### [id number] ####[facility] ([facility] [place], [place] [address]Tgfqnsp [Mass/Vol]8.6 mg/dLNormal8.6-10.3UnSelect Medical Special[facility] - CantonComment on above:Performed By: #### [id number] ####[facility] ([facility] [place], [place] [address]SY9 [Moles/Vol]31 mmol/IJabkwe29-77 [facility] SouthComment on above:Performed By: #### [id number] ####[facility] ([facility] [place], [place] [address]Cynhefqhxj [Mass/Vol]1.34 mg/dLHigh0.70-1.30UnSelect Medical Specialty Hospital - CantonComment on above:Performed By: #### [id number] ####[facility] ([facility] [place], [place] [address]SNRTXDGZBX FILTRATION RATE ML/MIN/1.73 SQ M.IXCJQALGO01.9 mL/min/1.73m*2Low>60.0UnSelect Medical Specialty Hospital - CantonComment on above:Result Comment: The [facility]???s estimated glomerular filtration rate (eGFR) will no [...] potential consequences that do not disproportionately affect anyone group of individuals.Performed By: #### [id number] ####[facility] ([facility] [place], [place] [address]Ufpgzih [Mass/Vol]120 mg/aXFqvx18-572YabqgcrhhjSelect Medical Specialty Hospital - CantonComment on above:Performed By: #### [id number] ####[facility] (BEBANNER)[address] [place], [place] [address]Qpbu nitrogen [Mass/Vol]28 mg/dL High7-25UnSelect Medical Specialty Hospital - CantonComment on above:Performed By: #### [id number] ####[facility] ([facility] [place], [place] [address]JODY NITROGEN/CREATININE (MASS RATIO) IN SER/PLAS20.9NormalUniversCincinnati Children's Hospital Medical CenterComment on above:Performed By: #### [id number] ####[facility] ([facility] [place], [place] [address]LDFCSBKgv 03-05-3309HXZMSTUYhadkj [facility] SouthMAGNESIUMon 01-51-2985Uukbotbmo [Mass/Vol]2.2 mg/dLNormal1.9-2.7UnSelect Medical Specialty Hospital - CantonComment on above:Performed By: #### [id number] ####[facility] ([facility] [place], [place] [address]Onylrwzmz [Mass/Vol]2.2 mg/dLNormal1.9-2.7UnSelect Medical Specialty Hospital - CantonComment on above:Performed By: #### [id number] ####[facility] ([facility] [place] [address]Dcuycrmxr [Mass/Vol]2.2 mg/dLNormal 1.9-2.7UnSelect Medical Special[facility] Hospital - CantonComment on above:Performed By: #### [id number] ####[facility] ([facility] [place], [place] [address]NQMS GLUCOSE METER UNSOLICITED RESULTSon 16-22-9787Cwmdgxr [Mass/Vol]234 mg/dLHigh 70-105UnSelect Medical Specialty Hospital - CantonComment on above:Order Comment: Waived Testing in the ED is performed under the ED CLIA certificate #[id number].Result Comment: [email or web address] By: #### [id number] ####[facility] ([facility] [place], [place] [address]CRWSTX, URINE, RANDOMon 80-79-4483Btwjjw (U) [Moles/Vol]36 mmol/LNormalUnSelect Medical Specialty Hospital - CantonComment on above: Performed By: #### [id number] ####[facility] ([facility] [place] [address]NRRA NITROGEN, URINEon 26-84-3556Bfxw nitrogen (U) [Mass/Vol] 516 mg/dLNormalUniversCincinnati Children's Hospital Medical CenterComment on above:Performed By: #### [id number] ####[facility] ([facility] [place] [id number] on [id number] of [facility] Xfexem60Xeq patient is Moderately Stable - Low risk of patient condition declining or worsening The patient's goals for the shift include rest, comfort The clinical goals for the shift include vss, safety, diuresisNormalUniverssouthwest general health center [facility]36on [id number] spouse states that Matt has been admitted to [facility] yesterday - heart failure- He states you wanted to be notifiedNormalUniZanesville City Hospital BASIC METABOLIC PANELon [id number] gap [Moles/Vol]13 mmol/LNormal7-20 [facility] SouthComment on above:Performed By: #### [id number] ####[facility] ([facility] [place], [place] [address]Pvtkyvm [Mass/Vol]8.9 mg/dLNormal8.6-10.3UnSelect Medical Specialty Hospital - CantonComment on above:Performed By: #### [id number] ####[facility] ([place])[address] [place], [place] [address]Lyvwsjru [Moles/Vol]101 mmol/XEzhgfi22-398BmgewidvheSelect Medical Specialty Hospital - CantonComment on above:Performed By: #### [id number] ####[facility] ([place])[address] [place], [place] [address]US6 [Moles/Vol]28 mmol/LNormal 21-31UnSelect Medical Specialty Hospital - CantonComment on above:Performed By: #### [id number] ####[facility] ([facility] [place] [address]Njqtmkjfii [Mass/Vol]1.14 mg/dLNormal0.70-1.30UnSelect Medical Specialty Hospital - CantonComment on above:Performed By: #### [id number] ####[facility] ([facility] [place] [address]SCCQOWGURW FILTRATION RATE ML/MIN/1.73 SQ M.SSRNTNJDG61.7 mL/min/1.73m*2Normal>60.0UnSelect Medical Specialty Hospital - CantonComment on above: Result Comment: The [facility]???s estimated glomerular filtration rate (eGFR) will no [...] potential consequences that do not disproportionately affect anyone group of individuals.Performed By: #### [id number] ####[facility] ([facility] [place] [address]Fdponmi [Mass/Vol]223 mg/jELafu44-390BzixvrgiajSelect Medical Specialty Hospital - CantonComment on above:Performed By: #### [id number] ####[facility] ([facility] [place] [address]Uzyzphcrr [Moles/Vol]4.2 mmol/L Normal3.5-5.1UnSelect Medical Specialty Hospital - CantonComment on above:Performed By: #### [id number] ####[facility] ([facility] [place] [address] Sodium [Moles/Vol]138 mmol/HJtsnmg163-201MntwnqcutfSelect Medical Specialty Hospital - Canton Comment on above:Performed By: #### [id number] ####[facility] ([facility] [place], [place] [address]Dpic nitrogen [Mass/Vol]25 mg/dLNormal7-25 [facility] SouthComment on above:Performed By: #### [id number] ####[facility] ([facility] [place], [place] [address]HPIF NITROGEN/CREATININE (MASS RATIO) IN SER/PLAS21.9NormalUniversCincinnati Children's Hospital Medical CenterComment on above:Performed By: #### [id number] ####[facility] ([facility] [place], [place] [address]Qwqzh gap [Moles/Vol]10 mmol/LNormal 7-20UnSelect Medical Specialty Hospital - CantonComment on above:Performed By: #### [id number] ####[facility] ([facility] [place], [place] [address]Jagvktr [Mass/Vol]9.0 mg/dLNormal8.6-10.3UnSelect Medical Specialty Hospital - CantonComment on above:Performed By: #### [id number] ####[facility] ([facility] [place], [place] [address]HU0 [Moles/Vol]32 mmol/XUxjj87-09JscruxwavnSelect Medical Specialty Hospital - CantonComment on above:Performed By: #### [id number] ####[facility] ([facility] [place], [place] [address]Qnrxyfpwvb [Mass/Vol]0.93 mg/dLNormal 0.70-1.30UnSelect Medical Specialty Hospital - CantonComment on above:Performed By: #### [id number] ####[facility] ([facility] [place], [place] [address]FAHZHMRTHR FILTRATION RATE ML/MIN/1.73 SQ M.NOWQLHEIH88.8 mL/min/1.73m*2Normal>60.0 [facility] SouthComment on above:Result Comment: The [facility]???s estimated glomerular filtration rate (eG FR) will no longer include consideration of race [...] potential consequences that do not disproportionately affect anyone group of individuals. Performed By: #### [id number] ####[facility] ([facility] [place], [place] [address]Rlqngqf [Mass/Vol]125 mg/lBKayj91-096XesixtlxxrSelect Medical Specialty Hospital - CantonComment on above:Performed By: #### [id number] ####[facility] ([facility] [place], [place] [address]Mpfhdufxn [Moles/Vol]4.1 mmol/LNormal 3.5-5.1UnSelect Medical Specialty Hospital - CantonComment on above:Performed By: #### [id number] ####[facility] ([facility] [place], [place] [address]Mckhvj [Moles/Vol]139 mmol/UDkyvwy936-197CbvuacuvwpSelect Medical Specialty Hospital - CantonComment on above:Performed By: #### [id number] ####[facility] ([facility] [place], [place] [address]Qvcy nitrogen [Mass/Vol]24 mg/dLNormal7-25UnSelect Medical Specialty Hospital - CantonComment on above:Performed By: #### [id number] ####[facility] ([facility] [place], [place] [address]QEMR NITROGEN/CREATININE (MASS RATIO) IN SER/PLAS25.8NormalUniversCincinnati Children's Hospital Medical CenterComment on above: Performed By: #### [id number] ####[facility] ([facility])[address] [place], [place] [address]Jkpbg gap [Moles/Vol]12 mmol/LNormal7-20UnSelect Medical Specialty Hospital - CantonComment on above:Performed By: #### [id number] ####[facility] ([facility] [place], [place] [address]Mkxzxtu [Mass/Vol]9.0 mg/dLNormal 8.6-10.3UnSelect Medical Specialty Hospital - CantonComment on above:Performed By: #### [id number] ####[facility] ([facility] [place] [address]Hiegcark [Moles/Vol]102 mmol/AJenlqe75-252BcdggcdkcnSelect Medical Specialty Hospital - CantonComment on above:Performed By: #### [id number] ####[facility] ([facility] [place] [address]DO7 [Moles/Vol]30 mmol/TWliuac29-57OvlfhlslvaSelect Medical Specialty Hospital - CantonComment on above:Performed By: #### [id number] ####[facility] ([facility] [place] [address]Gkdntudajr [Mass/Vol]0.97 mg/dLNormal 0.70-1.30UnSelect Medical Specialty Hospital - CantonComment on above:Performed By: #### [id number] ####[facility] ([facility] [place] [address]OQANAHKNIW FILTRATION RATE ML/MIN/1.73 SQ M.FDFEAFGWN92.3 mL/min/1.73m*2Normal>60.0 [facility] SouthComment on above:Result Comment: The [facility]???s estimated glomerular filtration rate (eG FR) will no longer include consideration of race [...] potential consequences that do not disproportionately affect anyone group of individuals. Performed By: #### [id number] ####[facility] ([facility] [place] [address]Pporifj [Mass/Vol]143 mg/cNDhmp77-824NnybbqkqpsSelect Medical Specialty Hospital - CantonComment on above:Performed By: #### [id number] ####[facility] ([facility] [place], [place] [address]Fsfvojiwo [Moles/Vol]3.8 mmol/LNormal 3.5-5.1UnSelect Medical Specialty Hospital - CantonComment on above:Performed By: #### [id number] ####[facility] ([facility] [place], [place] [address]Skbwre [Moles/Vol]140 mmol/QAhtqhc926-272PnwdqjpxqmSelect Medical Specialty Hospital - CantonComment on above:Performed By: #### [id number] ####[facility] ([facility] [place], [place] [address]Nzzk nitrogen [Mass/Vol]24 mg/dLNormal7-25UnSelect Medical Specialty Hospital - CantonComment on above:Performed By: #### [id number] ####[facility] ([facility] [place], [place] [address]POCJ NITROGEN/CREATININE (MASS RATIO) IN SER/PLAS24.7NormalUniversCincinnati Children's Hospital Medical CenterComment on above: Performed By: #### [id number] ####[facility] ([facility] [place], [place] [address]Jzgdk gap [Moles/Vol]11 mmol/LNormal7-20UnSelect Medical Specialty Hospital - CantonComment on above:Performed By: #### [id number] ####[facility] ([facility] [place], [place] [address]Ikzypoz [Mass/Vol]9.0 mg/dLNormal 8.6-10.3UnSelect Medical Specialty Hospital - CantonComment on above:Performed By: #### [id number] ####[facility] ([facility], [place] [address]Kekwwego [Moles/Vol]102 mmol/XJjvqnc69-850WmnqbgkepmSelect Medical Specialty Hospital - CantonComment on above:Performed By: #### [id number] ####[facility] ([facility] [place], [place] [address]VD7 [Moles/Vol]29 mmol/XOivuog64-44NnxrmshuvuSelect Medical Specialty Hospital - CantonComment on above:Performed By: #### [id number] ####[facility] ([facility] [place] [address]Omieeqdgqx [Mass/Vol]0.83 mg/dLNormal 0.70-1.30UnSelect Medical Specialty Hospital - CantonComment on above:Performed By: #### [id number] ####[facility] ([facility] [place] [address]QMZQIMGFYV FILTRATION RATE ML/MIN/1.73 SQ M.KGMXLUSMU42.0 mL/min/1.73m*2Normal>60.0 [facility] SouthComment on above:Result Comment: The [facility]???s estimated glomerular filtration rate (eG FR) will no longer include consideration of race [...] potential consequences that do not disproportionately affect anyone group of individuals. Performed By: #### [id number] ####[facility] ([facility] [place] [address]Dcmuoon [Mass/Vol]132 mg/oKGfar68-918CmlcmgmgzzSelect Medical Specialty Hospital - CantonComment on above:Performed By: #### [id number] ####[facility] ([facility] [place] [address]Xukvdkcpn [Moles/Vol]3.8 mmol/LNormal 3.5-5.1UnSelect Medical Specialty Hospital - CantonComment on above:Performed By: #### [id number] ####[facility] ([facility] [place] [address]Ikpeex [Moles/Vol]138 mmol/LRatnjs272-241FrzzdrcpjpSelect Medical Specialty Hospital - CantonComment on above:Performed By: #### [id number] ####[facility] ([facility] [place] [address]Bujs nitrogen [Mass/Vol]23 mg/dLNormal7-25UnSelect Medical Specialty Hospital - CantonComment on above:Performed By: #### [id number] ####[facility] ([facility] [place], [place] [address]NVCL NITROGEN/CREATININE (MASS RATIO) IN SER/PLAS27.7NormalUniversCincinnati Children's Hospital Medical CenterComment on above: Performed By: #### [id number] ####[facility] ([facility] [place] [address]LJP WITH AUTO DIFFERENTIALon 73-83-5501Dztvorvgd (Bld) [#/Vol]0.05 10*3/uLNormal0.00-0.20UnSelect Medical Specialty Hospital - CantonComment on above: Performed By: #### [id number] ####[facility] ([facility] [place], [place] [address]Gwifoovsn/100 WBC (Bld)0.9 %Normal0.0-1.0UnSelect Medical Specialty Hospital - CantonComment on above:Performed By: #### [id number] ####[facility] ([facility] [place], [place] [address]Iecuedlwdou (Bld) [#/Vol]0.18 10*3/uL Normal0.00-0.50UnSelect Medical Specialty Hospital - CantonComment on above:Performed By: #### [id number] ####[facility] ([facility] [place] [address] Eosinophils/100 WBC (Bld)3.2 %Normal0.0-6.0UnSelect [facility] [place] Comment on above:Performed By: #### [id number] ####[facility] ([facility] [place], [place] [address]Zwukcijznty distribution width (RBC) [Ratio]16.5 % High11.5-15.0UnSelect Medical Specialty Hospital - CantonComment on above:Performed By: #### [id number] ####[facility] ([facility] [place] [address] ERYTHROCYTE MEAN CORPUSCULAR HEMOGLOBIN CONCENTRATION (G/DL) BY CLAKDAIOS19.9 g/dLLow32.0-35.0UnSelect Medical Specialty Hospital - CantonComment on above:Performed By: #### [id number] ####[facility] ([facility])[address] [place] [address]Cmogrzgwsi (Bld) [Volume fraction]34.0 %Low39.0-55.0UnSelect Medical Specialty Hospital - CantonComment on above:Performed By: #### [id number] ####[facility] ([facility])[address] [place], [place] [address]Royyvzokjl (Bld) [Mass/Vol]10.5 g/dL Low13.0-17.0UnSelect Medical Specialty Hospital - CantonComment on above:Performed By: #### [id number] ####[facility] ([facility])[address] [place] [address] Immature granulocytes (Bld) [#/Vol]0.03 10*3/uLNormal0.00-0.20UnSelect Medical Specialty Hospital - CantonComment on above:Performed By: #### [id number] ####[facility] ([facility])[address] [place], [place] [address]Fpczrzbx granulocytes/100 WBC (Bld)0.5 %Normal0.0-1.0UnSelect Medical Specialty Hospital - CantonComment on above: Performed By: #### [id number] ####[facility] ([facility])[address] [place], [place] [address]Effcaoitucu (Bld) [#/Vol]1.97 10*3/uLNormal1.20-4.00 [facility] SouthComment on above:Performed By: #### [id number] ####[facility] ([facility])[address] [place], [place] [address]Lisnzoxugxc/100 WBC (Bld)35.1 %Lyfrii77.0-45.0UnSelect Medical Specialty Hospital - CantonComment on above:Performed By: #### [id number] ####[facility] ([facility])[address] [place], [place] [address]CPX (RBC) [Entitic mass]29.9 mbQqzhgu97.0-33.0UnSelect Medical Specialty Hospital - CantonComment on above:Performed By: #### [id number] ####[facility] ([facility] [place] [address]UYN (RBC) [Entitic vol] 96.9 bPWanmti76.0-98.0UnSelect Medical Specialty Hospital - CantonComment on above: Performed By: #### [id number] ####[facility] ([facility] [place] [address]Ylwpzxzdu (Bld) [#/Vol]0.67 10*3/uLNormal0.10-1.00UnSelect Medical Specialty Hospital - CantonComment on above:Performed By: #### [id number] ####[facility] ([facility] [place] [address]Lytxwvgel/100 WBC (Bld) 11.9 %Normal5.0-12.0UnSelect Medical Specialty Hospital - CantonComment on above: Performed By: #### [id number] ####[facility] ([facility] [place] [address]Hrnipulwnzr (Bld) [#/Vol]2.72 10*3/uLNormal1.60-7.60 [facility] SouthComment on above:Performed By: #### [id number] ####[facility] ([facility] [place] [address]Ovhlygswcbs/100 WBC (Bld)48.4 %Wvnrck45.0-72.0UnSelect Medical Specialty Hospital - CantonComment on above:Performed By: #### [id number] ####[facility] ([facility] [place] [address]EWUK (PER 100 WBCS) BY AUTOMATED COUNT0.0 %Bolkmt5IyfeqfqnjpSelect Medical Specialty Hospital - CantonComment on above:Performed By: #### [id number] ####[facility] ([facility])[address] [place] [address]IEVAHGRQU (10*3/UL) IN BLOOD AUTOMATED [id number] 10*3/kDRiqnwv022-553WhhaefnccmSelect Medical Specialty Hospital - [place]on Comment on above:Performed By: #### [id number] ####[facility] ([facility] [place] [address]AZY (Bld) [#/Vol]3.51 10*6/uLLow4.20-5.70UnSelect Medical Specialty Hospital - CantonComment on above:Performed By: #### [id number] ####[facility] ([facility] [place] [address]SWS (Bld) [#/Vol]5.62 10*3/uLNormal4.00-10.60UnSelect Medical Specialty Hospital - CantonComment on above: Performed By: #### [id number] ####[facility] ([facility] [place] [address]NLAXTJGdv 06-33-2600RHATZWDMciuunDootucmcim [facility] Medical CenterCONSULTNormalUniversity [facility]terson Medical CenterCONSULTNormalUniversity [facility]terson Medical CenterMAGNESIUMon 65-07-1336Edlofkchf [Mass/Vol]2.1 mg/dL Normal1.9-2.7UnSelect Medical Specialty Hospital - CantonComment on above:Performed By: #### [id number] ####[facility] ([facility] [place] [address] Magnesium [Mass/Vol]2.3 mg/dLNormal1.9-2.7UnSelect [facility] [place] Comment on above:Performed By: #### [id number] ####[facility] ([facility] [place] [address]Hfchojlkn [Mass/Vol]2.1 mg/dLNormal1.9-2.7 [facility] SouthComment on above:Performed By: #### [id number] ####[facility] ([facility])[address] [place] [address]83ba 06-06-2024 30NormalUniversCincinnati Children's Hospital Medical CenterB-TYPE NATRIURETIC PEPTIDEon 26-77-27[address]Bylantjyksw peptide B (Bld) [Mass/Vol]105 pg/mLHigh0-100UnSelect Medical Specialty Hospital - CantonComment on above:Performed By: #### [id number] ####[facility] ([facility] [place], [place] [address]VOR WITH AUTO DIFFERENTIALon 98-72-8558Gtbmtbxng (Bld) [#/Vol]0.05 10*3/uLNormal0.00-0.20 [facility] SouthComment on above:Performed By: #### [id number] ####[facility] ([facility] [place], [place] [address]Fpuozifvk/100 WBC (Bld)0.8 %Normal0.0-1.0UnSelect Medical Specialty Hospital - CantonComment on above: Performed By: #### [id number] ####[facility] ([facility] [place] [place], [place] [address]Zotondsmggx (Bld) [#/Vol]0.12 10*3/uLNormal0.00-0.50 [facility] SouthComment on above:Performed By: #### [id number] ####[facility] ([facility] [place], [place] [address]Chewbhowcjg/100 WBC (Bld)1.9 %Normal0.0-6.0UnSelect Medical Specialty Hospital - CantonComment on above: Performed By: #### [id number] ####[facility] ([facility] [facility] [address]Kbwfjawlxbc distribution width (RBC) [Ratio]16.4 %High 11.5-15.0UnSelect Medical Specialty Hospital - CantonComment on above:Performed By: #### [id number] ####[facility] ([facility] [facility] [place] [address] ERYTHROCYTE MEAN CORPUSCULAR HEMOGLOBIN CONCENTRATION (G/DL) BY LPKDRFEPU11.5 g/xXZatmkt94.0-35.0UnSelect Medical Specialty Hospital - CantonComment on above:Performed By: #### [id number] ####[facility] ([facility])[address] [place] [address]Usjalczgmd (Bld) [Volume fraction]30.5 %Low39.0-55.0UnSelect Medical Specialty Hospital - CantonComment on above:Performed By: #### [id number] ####[facility] ([facility] [place], [place] [address]Uueyfghkfw (Bld) [Mass/Vol]9.9 g/dLLow 13.0-17.0UnSelect Medical Specialty Hospital - CantonComment on above:Performed By: #### [id number] ####[facility] ([facility] [place], [place] [address]Fehpztbv granulocytes (Bld) [#/Vol]0.02 10*3/uLNormal0.00-0.20UnSelect Medical Specialty Hospital - CantonComment on above:Performed By: #### [id number] ####[facility] ([facility] [place] [address]Gfktyjbz granulocytes/100 WBC (Bld)0.3 %Normal0.0-1.0UnSelect Medical Specialty Hospital - CantonComment on above:Performed By: #### [id number] ####[facility] ([facility])[address] [place] [address] Lymphocytes (Bld) [#/Vol]1.77 10*3/uLNormal1.20-4.00UnSelect Medical Specialty Hospital - CantonComment on above:Performed By: #### [id number] ####[facility] ([facility] [place], [place] [address]Cpsxobqljnm/100 WBC (Bld)28.0 %Normal 20.0-45.0UnSelect Medical Specialty Hospital - CantonComment on above:Performed By: #### [id number] ####[facility] ([facility])[address] [place], [place] [address]DET (RBC) [Entitic mass]30.0 fmFrxnik70.0-33.0UnSelect [facility] [place] Comment on above:Performed By: #### [id number] ####[facility] ([facility] [place] [address]RSL (RBC) [Entitic vol]92.4 xHAaleni76.0-98.0 [facility] SouthComment on above:Performed By: #### [id number] ####[facility] ([facility] [place] [address]Spumxcrzr (Bld) [#/Vol]0.66 10*3/uLNormal0.10-1.00UnSelect Medical Specialty Hospital - CantonComment on above:Performed By: #### [id number] ####[facility] ([facility] [place] [address]Prvtlobhf/100 WBC (Bld)10.4 %Normal5.0-12.0UnSelect Medical Specialty Hospital - CantonComment on above:Performed By: #### [id number] ####[facility] ([facility] [place] [address]Bqumxhjijcq (Bld) [#/Vol] 3.71 10*3/uLNormal1.60-7.60UnSelect Medical Specialty Hospital - CantonComment on above: Performed By: #### [id number] ####[facility] ([facility] [place] [address]Qabgmtxzpkp/100 WBC (Bld)58.6 %Cnfqxf08.0-72.0UnSelect Medical Specialty Hospital - CantonComment on above:Performed By: #### [id number] ####[facility] ([facility] [place] [address]TIQJ (PER 100 WBCS) BY AUTOMATED COUNT0.0 %Bwbnig9BayqfbdpatSelect Medical Specialty Hospital - CantonComment on above: Performed By: #### [id number] ####[facility] ([facility] [place] [address]KQEHHPNUJ (10*3/UL) IN BLOOD AUTOMATED [id number] 10*3/uLNormal 150-400UnSelect Medical Specialty Hospital - CantonComment on above:Performed By: #### [id number] ####[facility] ([facility] [place], [place] [address]GFA (Bld) [#/Vol]3.30 10*6/uLLow4.20-5.70UnSelect Medical Specialty Hospital - CantonComment on above:Performed By: #### [id number] ####[facility] ([facility] [place], [place] [address]JQS (Bld) [#/Vol]6.33 10*3/uLNormal4.00-10.60[facility] - [facility] SouthComment on above:Performed By: #### [id number] ####[facility] ([facility] [place], [place] [address]KWDZKOYPKDMNW METABOLIC PANELon 67-89-8444Xmcqgcl [Mass/Vol]3.4 g/dLLow3.5-5.7[facility] - [place] SouthComment on above:Performed By: #### [id number] ####[facility] ([facility] [place], [place] [address]SAQ [Catalytic activity/Vol]53 U/L Qplcfy04-283UpidfyexzsSelect Medical Specialty Hospital - [place] SouthComment on above:Performed By: #### [id number] ####[facility] ([facility] [place], [place] [address]DPP [Catalytic activity/Vol]6 U/LLow7-52UnSelect Medical Specialty Hospital - CantonComment on above:Performed By: #### [id number] ####[facility] ([facility] [place], [place] [address]Pizte gap [Moles/Vol]11 mmol/LNormal7-20[facility] - [place] SouthComment on above:Performed By: #### [id number] ####[facility] ([facility] [place], [place] [address]PSQ [Catalytic activity/Vol]14 U/L Uljvmb09-13CzmkgpewpzSelect Medical Specialty Hospital - CantonComment on above:Performed By: #### [id number] ####[facility] ([place])[address] [place] [address] Bilirubin [Mass/Vol]0.7 mg/dLNormal0.3-1.0UnSelect [facility] [place] Comment on above:Performed By: #### [id number] ####[facility] ([facility] [place], [place] [address]Nmwtrvn [Mass/Vol]8.8 mg/dLNormal8.6-10.3UnSelect [facility] Specialty Hospital - CantonComment on above:Performed By: #### [id number] ####[facility] ([facility] [place], [place] [address]Gbfudcyh [Moles/Vol]105 mmol/VQdxwxg33-684BjmslbsngcSelect Medical Specialty Hospital - CantonComment on above:Performed By: #### [id number] ####[facility] ([facility] [place] [address] CO2 [Moles/Vol]26 mmol/XRawliv94-62BnwnmrkbsuSelect Medical Specialty Hospital - CantonComment on above:Performed By: #### [id number] ####[facility] ([facility] [place], [place] [address]Dycuamwink [Mass/Vol]0.72 mg/dLNormal0.70-1.30UnSelect Medical Specialty Hospital - CantonComment on above:Performed By: #### [id number] ####[facility] ([facility] [place], [place] [address]ZBCXJXBEVI FILTRATION RATE ML/MIN/1.73 SQ M.AJRKJDSID447.3 mL/min/1.73m*2Normal>60.0UnSelect Medical Specialty Hospital - CantonComment on above:Result Comment: The [facility]???s estimated glomerular filtration rate (eGFR) will no [...] potential consequences that do not disproportionately affect anyone group of individuals.Performed By: #### [id number] ####[facility] ([facility] [place], [place] [address]Mfpcomb [Mass/Vol]91 mg/nVYvghyy34-223ZonesvhdqvSelect Medical Specialty Hospital - CantonComment on above:Performed By: #### [id number] ####[facility] ([facility] [place], [place] [address]Khrplzsor [Moles/Vol]4.0 mmol/LNormal3.5-5.1UnSelect Medical Specialty Hospital - CantonComment on above:Performed By: #### [id number] ####[facility] [facility] ([facility] [place], [place] [address]Xtmeucw [Mass/Vol]6.2 g/dLNormal 6.0-8.3[facility] Columbus SouthComment on above:Performed By: #### [id number] ####[facility] ([facility] [place], [place] [address]Kdkfwo [Moles/Vol]138 mmol/TWbqnei982-082HqcmdkkozsSelect Medical Specialty Hospital - CantonComment on above:Performed By: #### [id number] ####[facility] ([facility] [place], [place] [address]Vbcq nitrogen [Mass/Vol]22 mg/dLNormal7-25UnSelect Medical Specialty Hospital - CantonComment on above:Performed By: #### [id number] ####[facility] ([facility] [place], [place] [address]NRBD NITROGEN/CREATININE (MASS RATIO) IN SER/PLAS30.6NormalUniZanesville City HospitalComment on above: Performed By: #### [id number] ####[facility] ([facility] [place], [place] [address]WWVKPWWXJG A1Con 50-96-8733Kkbycpj [Mass/Vol]128 mg/dLNormalUniZanesville City HospitalComment on above:Performed By: #### [id number] ####[facility] ([facility] [place] [address]RtM9x (Bld) [Mass fraction]6.1 %High4.0-6.0UnSelect Medical Specialty Hospital - CantonComment on above: Performed By: #### [id number] ####[facility] ([facility] [place] [address]KKya 95-67-9158PPKwdcoiKlmdkniowl of Toledo Medical CenterLIPID PANELon 82-57-7927ODSZ/HDL3.6 mg/dLNormalUniZanesville City HospitalComment on above:Performed By: #### [id number] ####[facility] ([facility] [place] [address]Aqvktwcnruk [Mass/Vol]96 mg/uQHzf965-131FsaduqcltiSelect Medical Specialty Hospital - CantonComment on above:Performed By: #### [id number] ####[facility] ([facility] [place] [address]Jtavtkuip [Mass/Vol]105 mg/dLNormal 40-149UnSelect Medical Specialty Hospital - CantonComment on above:Result Comment: TRIGLYCERIDE REFERENCE RANGE:20 YEARS AND OLDER CARDIOVASCULAR RISKLESS THAN 150 mg/dL LOW ZSWV833 TO 199 mg/dL BORDERLINE RWTU042 mg/dL AND GREATER HIGH RISK Performed By: #### [id number] ####[facility] ([facility])[address] [place] [address]Ynprrgoid [Mass/Vol]48 mg/dLNormal0-160UnSelect Medical Specialty Hospital - CantonComment on above:Performed By: #### [id number] ####[facility] ([facility])[address] [place] [address]Vuxtrepgq [Mass/Vol]27 mg/dLNormal 23-92UnSelect Medical Specialty Hospital - CantonComment on above:Performed By: #### [id number] ####[facility] ([facility])[address] [place] [address]HIW HDL CHOL. (LDL+VLDL)69NormalUniversCincinnati Children's Hospital Medical CenterComment on above: Performed By: #### [id number] ####[facility] ([facility] [place], [place] [address]OALPG VLDL-C21 mg/dLNormal0-40UnSelect Medical Specialty Hospital - [place]on Comment on above:Performed By: #### [id number] ####[facility] ([facility] [place] [address]QMYBCHXCGmu 94-76-2613Eqvdwalcd [Mass/Vol]2.2 mg/dL Normal1.9-2.7UnSelect Medical Specialty Hospital - CantonComment on above:Performed By: #### [id number] ####[facility] ([facility] [place] [address] NURSNOTEon 02-62-3772VEAHGREOKjcb assessment completed, pt has wound vac with lorenza wrap to RLE, per hospitalist Stephy, Vascular team will be consulted to take down lorenza wrap, wound vac, and assess right lower extremity. Wound care consult placed due to existing wounds.NormalUnSelect Medical Specialty Hospital - CantonTROPONIN Ion 62-54-8476Kjaizbry I.cardiac [Mass/Vol]0.00 ng/mLNormal0.00-0.04UnSelect Medical Specialty Hospital - [place]on Comment on above:Performed By: #### [id number] ####[facility] ([facility] [place], [place] [address]Fllqgviku Auto (Bld) [#/Vol]on 48-57-8151Qtvkrdwyc (Bld) [#/Vol]Automated basophil count0.0-0.1FSt. Mary's Medical Center Basophils/100 WBC Auto (Bld)on 32-15-8791Sbyrmpfem/100 WBC (Bld)Automated basophil %0.2-2.0[facility] DaytonEosinophils/100 WBC Auto (Bld) on 12-92-1901Elgtpydxvld/100 WBC (Bld)Automated eosinophil %0.9-7.0[facility] DaytonErythrocyte distribution width Auto (RBC) [Ratio]on 22-40-8817Fxyyynpfqfp distribution width (RBC) [Ratio]Erythrocyte distribution width [Ratio] by Automated maesdLqqs13.0-15.0[facility] Hematocrit Auto (Bld) [Volume fraction]on 42-64-1713Ghxpnpzjvo (Bld) [Volume fraction]Hematocrit [Volume Fraction] of Blood by Automated ntvjySme16.0-54.0 [facility] DaytonHemoglobin [Mass/volume] in Bloodon 06-05-2024 Hemoglobin (Bld) [Mass/Vol]Hemoglobin [Mass/volume] in MagheCbc01.0-18.0 [facility] DaytonLaboratory - Hematology and Cell countson 41-17-6927Oyzjziso granulocytes/100 WBC (Bld)0.8 %High0.0-0.5FSt. Mary's Medical CenterLeukocytes [#/volume] corrected for nucleated erythrocytes in Blood by Automated counon 64-65-8219ELY corrected for nucl RBC Auto (Bld) [#/Vol]Leukocytes [#/volume] corrected for nucleated erythrocytes in Blood by Automated coun4.0-11.0[facility] DaytonLymphocytes Auto (Bld) [#/Vol]on 85-64-0053Qiboqbamofr (Bld) [#/Vol]Lymphocytes [#/volume] in Blood by Automated count1.2-3.8[facility] DaytonLymphocytes/100 WBC Auto (Bld)on 26-69-6647Apwkpbvaqjv/100 WBC (Bld)Lymphocytes/100 leukocytes in Blood by Automated count20.5-60.0[facility] HospitalH Auto (RBC) [Entitic mass]on 88-94-5242PYS (RBC) [Entitic mass]MCH [Entitic mass] by Automated count25.9-34.0[facility] DaytonMCHC Auto (RBC) [Mass/Vol]on 10-12-5650KNLC (RBC) [Mass/Vol]MCHC [Mass/volume] by Automated count29.9-35.2FSt. Mary's Medical CenterMCV Auto (RBC) [Entitic vol]on 41-64-2789TBT (RBC) [Entitic vol]MCV [Entitic volume] by Automated count 80.0-94.0[facility] DaytonMonocytes Auto (Bld) [#/Vol]on 67-41-5017Owfmqmbvy (Bld) [#/Vol]Automated blood monocyte count0.3-0.8[facility] DaytonMonocytes/100 WBC Auto (Bld)on 92-48-0297Vynkfkfgn/100 WBC (Bld)Automated monocyte %1.7-12.0[facility] Neutrophils Auto (Bld) [#/Vol]on 44-67-4191Klzesapaaou (Bld) [#/Vol]Neutrophils [#/volume] in Blood by Automated count1.4-6.5FSt. Mary's Medical Center Neutrophils/100 WBC Auto (Bld)on 83-74-2801Iltbqafikfa/100 WBC (Bld)Automated neutrophil %43.0-75.0[facility] DaytonNo Panel Informationon 36-38-3527Dbjkhleajvi # (Auto)0.2 10 3/uL0.0-0.7FSt. Mary's Medical CenterImmature Granulocyte # (Auto)0.05 10 3/uLHigh0.00-0.03[facility] DaytonPlatelet mean volume Auto (Bld) [Entitic vol]on 22-32-6207Tioiilvv mean volume (Bld) [Entitic vol]Platelet mean volume [Entitic volume] in Blood by Automated count9.5-13.5FSt. Mary's Medical CenterPlatelets Auto (Bld) [#/Vol]on 72-85-0910Ylhxujnip (Bld) [#/Vol]Platelets [#/volume] in Blood by Automated ikcnc112-865FkoigwqewKindred Hospital DaytonRBC Auto (Bld) [#/Vol]on 87-35-3504VLQ (Bld) [#/Vol]Erythrocytes [#/volume] in Blood by Automated count Low4.70-6.10[facility] DaytonBasophils Auto (Bld) [#/Vol]on 76-21-3266Kznoujjgv (Bld) [#/Vol]Automated basophil count0.0-0.1FSt. Mary's Medical CenterBasophils/100 WBC Auto (Bld)on 76-36-9913Kvotgopcz/100 WBC (Bld)Automated basophil %0.2-2.0[facility] Eosinophils/100 WBC Auto (Bld)on 03-15-3008Xqfxovysdvd/100 WBC (Bld)Automated eosinophil %0.9-7.0[facility] DaytonErythrocyte distribution width Auto (RBC) [Ratio]on 09-53-4703Ubbuizceyxw distribution width (RBC) [Ratio]Erythrocyte distribution width [Ratio] by Automated nnaioGolm71.0-15.0 [facility] DaytonHematocrit Auto (Bld) [Volume fraction]on 48-42-9272Lvulzhryqw (Bld) [Volume fraction]Hematocrit [Volume Fraction] of Blood by Automated ykxcbLvl83.0-54.0[facility] DaytonHemoglobin [Mass/volume] in Bloodon 11-63-4464Eyemkrztcx (Bld) [Mass/Vol]Hemoglobin [Mass/volume] in ZadesViy62.0-18.0[facility] DaytonLaboratory - Hematology and Cell countson 47-27-5021Turfoscv granulocytes/100 WBC (Bld)0.3 % 0.0-0.5FSt. Mary's Medical CenterLeukocytes [#/volume] corrected for nucleated erythrocytes in Blood by Automated counon 78-24-6266JAX corrected for nucl RBC Auto (Bld) [#/Vol]Leukocytes [#/volume] corrected for nucleated erythrocytes in Blood by Automated coun4.0-11.0[facility] Lymphocytes Auto (Bld) [#/Vol]on 07-99-0859Ibdueqvajxh (Bld) [#/Vol]Lymphocytes [#/volume] in Blood by Automated count1.2-3.8[facility] Lymphocytes/100 WBC Auto (Bld)on 16-64-2041Pneyliylodm/100 WBC (Bld) Lymphocytes/100 leukocytes in Blood by Automated count20.5-60.0[facility] DaytonMCH Auto (RBC) [Entitic mass]on 95-08-3385ZYV (RBC) [Entitic mass]MCH [Entitic mass] by Automated count25.9-34.0[facility] DaytonMCHC Auto (RBC) [Mass/Vol]on 61-99-0539CNLO (RBC) [Mass/Vol]MCHC [Mass/volume] by Automated count29.9-35.2FSt. Mary's Medical CenterMCV Auto (RBC) [Entitic vol]on 48-00-5544FZV (RBC) [Entitic vol]MCV [Entitic volume] by Automated count80.0-94.0[facility] DaytonMonocytes Auto (Bld) [#/Vol]on 66-04-2364Hzvfcoojr (Bld) [#/Vol]Automated blood monocyte count0.3-0.8 [facility] DaytonMonocytes/100 WBC Auto (Bld)on 06-04-2024 Monocytes/100 WBC (Bld)Automated monocyte %1.7-12.0[facility] DaytonNeutrophils Auto (Bld) [#/Vol]on 66-32-7051Jbqhlcjijxc (Bld) [#/Vol] Neutrophils [#/volume] in Blood by Automated count1.4-6.5FSt. Mary's Medical CenterNeutrophils/100 WBC Auto (Bld)on 48-53-0701Ecjztuwzkbg/100 WBC (Bld)Automated neutrophil %43.0-75.0[facility] DaytonNo Panel Informationon 02-48-6605Smzulwgohws # (Auto)0.2 10 3/uL0.0-0.7FSt. Mary's Medical CenterImmature Granulocyte # (Auto)0.02 10 3/uL0.00-0.03[facility] DaytonPlatelet mean volume Auto (Bld) [Entitic vol]on 46-07-1548Govtvlpc mean volume (Bld) [Entitic vol]Platelet mean volume [Entitic volume] in Blood by Automated count9.5-13.5FSt. Mary's Medical Center Platelets Auto (Bld) [#/Vol]on 09-48-1971Zqmnrvdmo (Bld) [#/Vol]Platelets [#/volume] in Blood by Automated lzblo157-309MrjnafpstKindred Hospital Dayton RBC Auto (Bld) [#/Vol]on 81-67-9654LTY (Bld) [#/Vol]Erythrocytes [#/volume] in Blood by Automated countLow4.70-6.10[facility] DaytonBasophils Auto (Bld) [#/Vol]on 45-35-6154Whwebasxo (Bld) [#/Vol]Automated basophil count 0.0-0.1FSt. Mary's Medical CenterBasophils/100 WBC Auto (Bld)on 40-77-7775Dvfltacmk/100 WBC (Bld)Automated basophil %0.2-2.0[facility] DaytonEosinophils/100 WBC Auto (Bld)on 40-54-1356Mfjtsrjomcq/100 WBC (Bld)Automated eosinophil %0.9-7.0[facility] DaytonErythrocyte distribution width Auto (RBC) [Ratio]on 09-30-3040Apdxppkbotf distribution width (RBC) [Ratio]Erythrocyte distribution width [Ratio] by Automated countHigh 11.0-15.0[facility] DaytonHematocrit Auto (Bld) [Volume fraction]on 68-99-4298Woponbayzj (Bld) [Volume fraction]Hematocrit [Volume Fraction] of Blood by Automated qjedpAui62.0-54.0[facility] DaytonHemoglobin [Mass/volume] in Bloodon 70-03-5098Jeutqfnwvq (Bld) [Mass/Vol] Hemoglobin [Mass/volume] in ApligNni02.0-18.0[facility] Laboratory - Hematology and Cell countson 68-31-8800Edurneab granulocytes/100 WBC (Bld)0.2 %0.0-0.5FSt. Mary's Medical CenterLeukocytes [#/volume] corrected for nucleated erythrocytes in Blood by Automated counon 87-22-9100DVD corrected for nucl RBC Auto (Bld) [#/Vol]Leukocytes [#/volume] corrected for nucleated erythrocytes in Blood by Automated coun4.0-11.0[facility] DaytonLymphocytes Auto (Bld) [#/Vol]on 30-12-9399Doerpfemeyr (Bld) [#/Vol]Lymphocytes [#/volume] in Blood by Automated count1.2-3.8[facility] DaytonLymphocytes/100 WBC Auto (Bld)on 06-03-2024 Lymphocytes/100 WBC (Bld)Lymphocytes/100 leukocytes in Blood by Automated count 20.5-60.0[facility] DaytonMCH Auto (RBC) [Entitic mass]on 22-61-2050TGA (RBC) [Entitic mass]MCH [Entitic mass] by Automated count25.9-34.0 [facility] DaytonMCHC Auto (RBC) [Mass/Vol]on 59-03-7161LDQX (RBC) [Mass/Vol]MCHC [Mass/volume] by Automated count29.9-35.2FSt. Mary's Medical CenterMCV Auto (RBC) [Entitic vol]on 13-22-7011ACU (RBC) [Entitic vol] MCV [Entitic volume] by Automated count80.0-94.0[facility] DaytonMonocytes Auto (Bld) [#/Vol]on 45-04-9041Cpuszgtbs (Bld) [#/Vol]Automated blood monocyte count0.3-0.8[facility] DaytonMonocytes/100 WBC Auto (Bld)on 26-01-3369Kmmosfnff/100 WBC (Bld)Automated monocyte %1.7-12.0 [facility] DaytonNeutrophils Auto (Bld) [#/Vol]on 06-03-2024 Neutrophils (Bld) [#/Vol]Neutrophils [#/volume] in Blood by Automated count 1.4-6.5FSt. Mary's Medical CenterNeutrophils/100 WBC Auto (Bld)on 31-56-3425Zeovulrmseq/100 WBC (Bld)Automated neutrophil %43.0-75.0[facility] DaytonNo Panel Informationon 82-90-1102Cnsykhvfnsa # (Auto)0.1 10 3/uL0.0-0.7FSt. Mary's Medical CenterImmature Granulocyte # (Auto)0.02 10 3/uL0.00-0.03[facility] DaytonPlatelet mean volume Auto (Bld) [Entitic vol]on 72-65-6117Ftljnpvn mean volume (Bld) [Entitic vol]Platelet mean volume [Entitic volume] in Blood by Automated count9.5-13.5FSt. Mary's Medical CenterPlatelets Auto (Bld) [#/Vol]on 02-95-6214Tthyrcdzl (Bld) [#/Vol]Platelets [#/volume] in Blood by Automated mkmku681-214XbikyrwaqKindred Hospital DaytonRBC Auto (Bld) [#/Vol]on 85-94-8415KDQ (Bld) [#/Vol]Erythrocytes [#/volume] in Blood by Automated countLow4.70-6.10[facility] DaytonBasophils Auto (Bld) [#/Vol]on 23-39-1850Nvpxjixih (Bld) [#/Vol]Automated basophil count0.0-0.1FSt. Mary's Medical CenterBasophils/100 WBC Auto (Bld)on 36-43-5183Vyrfjckjn/100 WBC (Bld)Automated basophil %0.2-2.0[facility] DaytonEosinophils/100 WBC Auto (Bld)on 06-02-2024 Eosinophils/100 WBC (Bld)Automated eosinophil %0.9-7.0[facility] DaytonErythrocyte distribution width Auto (RBC) [Ratio]on 05-51-8922Gdgdqnjbwwn distribution width (RBC) [Ratio]Erythrocyte distribution width [Ratio] by Automated hsgkfLreq99.0-15.0[facility] DaytonHematocrit Auto (Bld) [Volume fraction]on 63-03-2404Aejvcjtguy (Bld) [Volume fraction]Hematocrit [Volume Fraction] of Blood by Automated jlvbpZvy38.0-54.0[facility] DaytonHemoglobin [Mass/volume] in Bloodon 39-16-3727Lxbnmqdaww (Bld) [Mass/Vol]Hemoglobin [Mass/volume] in JmwdnSgy63.0-18.0[facility] DaytonLaboratory - Hematology and Cell countson 88-97-0454Jmqivbbo granulocytes/100 WBC (Bld)0.4 %0.0-0.5FSt. Mary's Medical Center Leukocytes [#/volume] corrected for nucleated erythrocytes in Blood by Automated counon 49-77-1119RZR corrected for nucl RBC Auto (Bld) [#/Vol]Leukocytes [#/volume] corrected for nucleated erythrocytes in Blood by Automated coun 4.0-11.0[facility] DaytonLymphocytes Auto (Bld) [#/Vol]on 62-44-5918Molmfcxvfit (Bld) [#/Vol]Lymphocytes [#/volume] in Blood by Automated count1.2-3.8[facility] DaytonLymphocytes/100 WBC Auto (Bld)on 93-47-6793Jdgwinuryfh/100 WBC (Bld)Lymphocytes/100 leukocytes in Blood by Automated count20.5-60.0[facility] HospitalH Auto (RBC) [Entitic mass]on 42-24-3417ZYW (RBC) [Entitic mass]MCH [Entitic mass] by Automated count 25.9-34.0[facility] DaytonMCHC Auto (RBC) [Mass/Vol]on 71-02-5653FGGJ (RBC) [Mass/Vol]MCHC [Mass/volume] by Automated count29.9-35.2 [facility] DaytonMCV Auto (RBC) [Entitic vol]on 75-21-0915RCM (RBC) [Entitic vol]MCV [Entitic volume] by Automated count80.0-94.0[facility] DaytonMonocytes Auto (Bld) [#/Vol]on 01-50-3766Owxfnnynx (Bld) [#/Vol]Automated blood monocyte count0.3-0.8[facility] Monocytes/100 WBC Auto (Bld)on 49-97-3408Bngvaeena/100 WBC (Bld)Automated monocyte %1.7-12.0[facility] DaytonNeutrophils Auto (Bld) [#/Vol]on 52-44-6251Xrnmqxdetwj (Bld) [#/Vol]Neutrophils [#/volume] in Blood by Automated count1.4-6.5FSt. Mary's Medical CenterNeutrophils/100 WBC Auto (Bld)on 05-96-3235Nrestthlgso/100 WBC (Bld)Automated neutrophil %43.0-75.0 [facility] DaytonNo Panel Informationon 63-19-7775Fmtwrlblgqw # (Auto)0.2 10 3/uL0.0-0.7FSt. Mary's Medical CenterImmature Granulocyte # (Auto)0.03 10 3/uL0.00-0.03[facility] DaytonPlatelet mean volume Auto (Bld) [Entitic vol]on 06-41-7374Nwhxmgbi mean volume (Bld) [Entitic vol] Platelet mean volume [Entitic volume] in Blood by Automated count9.5-13.5 [facility] DaytonPlatelets Auto (Bld) [#/Vol]on 06-02-2024 Platelets (Bld) [#/Vol]Platelets [#/volume] in Blood by Automated tumzz281-605 [facility] DaytonRBC Auto (Bld) [#/Vol]on 21-28-4006ZCO (Bld) [#/Vol]Erythrocytes [#/volume] in Blood by Automated countLow4.70-6.10[facility]36on 89-32-237719Hncoswp would like Dr. Choudhary to know that he is having another surgery tomorrow This just an fyi messageNormalUniversity of Saint David'S Round [facility] Medical CenterBasophils Auto (Bld) [#/Vol]on 38-58-9930Fugzguhlf (Bld) [#/Vol]Automated basophil count0.0-0.1 [facility] DaytonBasophils/100 WBC Auto (Bld)on 06-01-2024 Basophils/100 WBC (Bld)Automated basophil %0.2-2.0[facility] DaytonEosinophils/100 WBC Auto (Bld)on 14-21-1847Exaelmmftao/100 WBC (Bld) Automated eosinophil %0.9-7.0[facility] DaytonErythrocyte distribution width Auto (RBC) [Ratio]on 50-60-3582Wcrvtymwmzc distribution width (RBC) [Ratio]Erythrocyte distribution width [Ratio] by Automated countHigh 11.0-15.0[facility] DaytonEstimated glomerular filtration rate (GFR) non- Americanon 60-95-1627KZB/1.73 sq M.predicted among non-blacks MDRD (S/P/Bld) [Vol rate/Area]Estimated glomerular filtration rate (GFR) non- AmericanLow>=60 mL/min/1.73m 2FSt. Mary's Medical CenterGlobulin Calc (S) [Mass/Vol]on 78-50-2027Fhocshkj (S) [Mass/Vol]Serum globulin measurement by calculation (mass/volume)[facility] Hematocrit Auto (Bld) [Volume fraction]on 76-45-8393Eqnqzrmuwt (Bld) [Volume fraction]Hematocrit [Volume Fraction] of Blood by Automated wkcrmRtr10.0-54.0 [facility] DaytonHemoglobin [Mass/volume] in Bloodon 06-01-2024 Hemoglobin (Bld) [Mass/Vol]Hemoglobin [Mass/volume] in ZmfbgQce56.0-18.0 [facility] DaytonINR in Platelet poor plasma by Coagulation assayon 98-00-7747DYB Coag (PPP) [Relative time]INR in Platelet poor plasma by Coagulation assayKindred Hospital DaytonComment on above:DESIRED INR:2.0-3.0 CONDITIONS NOT LISTED BELOW2.5-3.5 FOR PROSTHETIC HEART VALVE REPLACEMENT2.5-3.5 RECURRENT THROMBOSISLaboratory - Chemistry and Chemistry - challengeon 90-18-6408Imsjoka [Mass/Vol]3.1 g/dLLow3.4-5.0[facility] DaytonALP [Catalytic activity/Vol]69 U/C67-961RpfskqkaoKindred Hospital DaytonALT [Catalytic activity/Vol]21 U/G26-43VapvafstzKindred Hospital Dayton AST [Catalytic activity/Vol]18 U/F49-44DdrcmmkomKindred Hospital Dayton Bilirubin [Mass/Vol]0.8 mg/dL0.2-1.0[facility] DaytonCalcium [Mass/Vol]8.8 mg/dL8.5-10.1FSt. Mary's Medical CenterChloride [Moles/Vol] 100 mmol/X15-651VpjwoazqiKindred Hospital DaytonCO2 [Moles/Vol]31.0 mmol/L 21.0-32.0[facility] DaytonCreatinine [Mass/Vol]1.27 mg/dL 0.70-1.30[facility] DaytonGFR/1.73 sq M.predicted MDRD (S/P/Bld) [Vol rate/Area]mL/min/{1.73_m2}>=60 mL/min/1.73m 2FSt. Mary's Medical CenterGlucose [Mass/Vol]118 mg/cYSzce35-830LdhryussuKindred Hospital Dayton Lactate [Moles/Vol]1.4 mmol/L0.4-2.0[facility] DaytonPotassium [Moles/Vol]4.3 mmol/L3.5-5.1FSt. Mary's Medical CenterProtein [Mass/Vol] 6.9 g/dL6.4-8.2FCincinnati Shriners Hospitalodium [Moles/Vol]140 mmol/L 136-145[facility] DaytonUrea nitrogen [Mass/Vol]21.0 mg/dLHigh 7.0-18.0[facility] DaytonUrea nitrogen/Creatinine [Mass ratio] 16.5 mg/mgKindred Hospital DaytonLaboratory - Hematology and Cell countson 57-32-9826Dodurqzb granulocytes/100 WBC (Bld)0.2 %0.0-0.5FSt. Mary's Medical CenterLeukocytes [#/volume] corrected for nucleated erythrocytes in Blood by Automated counon 31-25-1363SQR corrected for nucl RBC Auto (Bld) [#/Vol]Leukocytes [#/volume] corrected for nucleated erythrocytes in Blood by Automated coun4.0-11.0[facility] DaytonLymphocytes Auto (Bld) [#/Vol]on 72-03-1235Zdtsajrppvj (Bld) [#/Vol]Lymphocytes [#/volume] in Blood by Automated count1.2-3.8[facility] DaytonLymphocytes/100 WBC Auto (Bld)on 29-59-6077Zmelbsspgiw/100 WBC (Bld)Lymphocytes/100 leukocytes in Blood by Automated count20.5-60.0[facility] HospitalH Auto (RBC) [Entitic mass]on 51-40-7787FPL (RBC) [Entitic mass]MCH [Entitic mass] by Automated count25.9-34.0[facility] DaytonMCHC Auto (RBC) [Mass/Vol]on 00-14-2137XMCL (RBC) [Mass/Vol]MCHC [Mass/volume] by Automated count29.9-35.2FSt. Mary's Medical CenterMCV Auto (RBC) [Entitic vol]on 43-39-2900XSC (RBC) [Entitic vol]MCV [Entitic volume] by Automated countHigh 80.0-94.0[facility] DaytonMonocytes Auto (Bld) [#/Vol]on 65-65-3614Fexbvfybe (Bld) [#/Vol]Automated blood monocyte count0.3-0.8[facility] DaytonMonocytes/100 WBC Auto (Bld)on 40-26-9638Emfkakuhk/100 WBC (Bld)Automated monocyte %1.7-12.0[facility] Neutrophils Auto (Bld) [#/Vol]on 30-60-9035Dmqnjmugipx (Bld) [#/Vol]Neutrophils [#/volume] in Blood by Automated count1.4-6.5FSt. Mary's Medical Center Neutrophils/100 WBC Auto (Bld)on 45-27-8646Pslikvjygnt/100 WBC (Bld)Automated neutrophil %43.0-75.0[facility] DaytonNo Panel Informationon 72-98-5767Htbhxkusqjx # (Auto)0.2 10 3/uL0.0-0.7FSt. Mary's Medical CenterImmature Granulocyte # (Auto)0.02 10 3/uL0.00-0.03[facility] DaytonPlatelet mean volume Auto (Bld) [Entitic vol]on 18-46-6391Qfyutczt mean volume (Bld) [Entitic vol]Platelet mean volume [Entitic volume] in Blood by Automated count9.5-13.5FSt. Mary's Medical CenterPlatelets Auto (Bld) [#/Vol]on 35-38-3319Rztsblehj (Bld) [#/Vol]Platelets [#/volume] in Blood by Automated wyxdb524-437RglsqxjstKindred Hospital DaytonProthrombin time (PT)on 37-82-8360VF Coag (PPP) [Time]Prothrombin time (PT)9.0-11.6FSt. Mary's Medical CenterRBC Auto (Bld) [#/Vol]on 21-33-3963LOK (Bld) [#/Vol]Erythrocytes [#/volume] in Blood by Automated countLow4.70-6.10[facility] Companyerum or plasma albumin/globulin mass ratioon 34-11-3765Ufjqprs/Globulin [Mass ratio]Serum or plasma albumin/globulin mass ratioRegency Hospital Companyerum or plasma anion gap determinationon 80-04-0099Krjhv gap [Moles/Vol]Serum or plasma anion gap determinationKindred Hospital DaytonBasophils Auto (Bld) [#/Vol]on 13-16-6924Slqktkhme (Bld) [#/Vol]Automated basophil count0.0-0.1FSt. Mary's Medical CenterBasophils/100 WBC Auto (Bld)on 85-50-5839Rjqzuopee/100 WBC (Bld)Automated basophil %0.2-2.0[facility] DaytonEosinophils/100 WBC Auto (Bld)on 05-27-2024 Eosinophils/100 WBC (Bld)Automated eosinophil %0.9-7.0[facility] DaytonErythrocyte distribution width Auto (RBC) [Ratio]on 82-15-9520Oyglgbzisxf distribution width (RBC) [Ratio]Erythrocyte distribution width [Ratio] by Automated jxujyRoyr98.0-15.0[facility] DaytonHematocrit Auto (Bld) [Volume fraction]on 01-56-0178Bojhdeafub (Bld) [Volume fraction]Hematocrit [Volume Fraction] of Blood by Automated lminjGdv21.0-54.0[facility] DaytonHemoglobin [Mass/volume] in Bloodon 20-25-4393Ztsnwujjox (Bld) [Mass/Vol]Hemoglobin [Mass/volume] in BlnumHmo66.0-18.0[facility] Hospital DaytonLon 05-27-2024L Specimen: [id number] Received: 05/27/24-123 Status: KIMI Bal Num: [id number] Spec Type: Surgical Subm Dr: Kole Emery,DPM, MS Tissues: A DIGIT AMPUTATION (RT TRANSMETATARSAL AMPUTATIO) Procedures: HE/4, Gross/Micro L4, Decalcification Age/ Patient Sex Location Account Attending Physician Matt Waterman/M LABELL [id number] Kole Emery DPM, MS SPEC NUM: [id number] RECD: 05/27/24 STATUS: KIMI BLANKA NUM: [id number] CHRIS: 05/27/24-[address] [facility] [address]: Kole Emery DPM, MS ENTERED: 05/27/24-[address] [facility] [address]: Dimas,Lab SPEC TYPE: Surgical DEPT: [facility] ENTERED BY: [id number] RECV BY: [id number] ORDERED: HE/4, Gross/Micro L4, Decalcification ORDERED: HE/4, [...] specimen, decalcified (4, ss, [id number] A)JG Specimen: [id number] Received: 05/27/24 Status: KIMI Bal Num: [id number] Spec Type: Surgical Subm Dr: Kole Emery,HAMZAH, MS Tissues: A DIGIT AMPUTATION (RT TRANSMETATARSAL AMPUTATIO) Procedures: HE/4, Gross/Micro L4, Decalcification Patient: Matt Waterman [id number] (Continued) Specimen: [id number] Received: 05/27/24 (Continued) Signed (signature on file) Abby Rivera MD 06/02/24 1601 Specimen: [id number] Received: 05/27/24 Status: KIMI Bal Num: [id number] Spec Type: Surgical Subm Dr: Kole Emery,HAMZAH, MS Tissues: A DIGIT AMPUTATION (RT TRANSMETATARSAL AMPUTATIO) Procedures: /4, Gross/Micro L4, Decalcification Patient: Matt Waterman [id number] (Continued) Specimen: [id number] Received: 05/27/24 (Continued) CPT Codes 43535 Specimen: [id number] Received: 05/27/24-1232 Status: KIMI Bal Num: [id number] Spec Type: Surgical Subm Dr: Kole Emery,HAMZAH, MS Tissues: A DIGIT AMPUTATION (RT TRANSMETATARSAL AMPUTATIO) Procedures: HE/4, Gross/Micro L4, Decalcification Patient: Matt Waterman [id number] (Continued) Signed (signature on file) Abby Rivera MD 06/02/[address] [address] Physician GroupLaboratory - Hematology and Cell countson 79-87-2456Jtushtnd granulocytes/100 WBC (Bld)0.3 %0.0-0.5FSt. Mary's Medical CenterLeukocytes [#/volume] corrected for nucleated erythrocytes in Blood by Automated counon 22-44-6577WCT corrected for nucl RBC Auto (Bld) [#/Vol]Leukocytes [#/volume] corrected for nucleated erythrocytes in Blood by Automated coun4.0-11.0[facility] DaytonLymphocytes Auto (Bld) [#/Vol]on 04-35-6774Abxbdhcqwxs (Bld) [#/Vol]Lymphocytes [#/volume] in Blood by Automated count1.2-3.8[facility] DaytonLymphocytes/100 WBC Auto (Bld)on 90-50-1104Mwfcqcgqjll/100 WBC (Bld)Lymphocytes/100 leukocytes in Blood by Automated count20.5-60.0[facility] HospitalH Auto (RBC) [Entitic mass]on 42-14-8820FJD (RBC) [Entitic mass]MCH [Entitic mass] by Automated count25.9-34.0[facility] DaytonMCHC Auto (RBC) [Mass/Vol]on 72-72-2256ADOR (RBC) [Mass/Vol]MCHC [Mass/volume] by Automated count29.9-35.2FSt. Mary's Medical CenterMCV Auto (RBC) [Entitic vol]on 24-38-7300OKE (RBC) [Entitic vol]MCV [Entitic volume] by Automated count 80.0-94.0[facility] DaytonMonocytes Auto (Bld) [#/Vol]on 03-67-3671Ofakkzzny (Bld) [#/Vol]Automated blood monocyte count0.3-0.8[facility] DaytonMonocytes/100 WBC Auto (Bld)on 67-14-0359Wyuwqghwv/100 WBC (Bld)Automated monocyte %1.7-12.0[facility] Neutrophils Auto (Bld) [#/Vol]on 51-32-3077Rtmpylduqwt (Bld) [#/Vol]Neutrophils [#/volume] in Blood by Automated count1.4-6.5FSt. Mary's Medical Center Neutrophils/100 WBC Auto (Bld)on 16-16-2113Dreicqbxjss/100 WBC (Bld)Automated neutrophil %43.0-75.0[facility] DaytonNo Panel Informationon 02-82-6833Ofmjaktqrty # (Auto)0.2 10 3/uL0.0-0.7FSt. Mary's Medical CenterImmature Granulocyte # (Auto)0.02 10 3/uL0.00-0.03[facility] DaytonPlatelet mean volume Auto (Bld) [Entitic vol]on 91-35-0329Akpdthyd mean volume (Bld) [Entitic vol]Platelet mean volume [Entitic volume] in Blood by Automated count9.5-13.5FSt. Mary's Medical CenterPlatelets Auto (Bld) [#/Vol]on 09-23-9645Uyhyxokzw (Bld) [#/Vol]Platelets [#/volume] in Blood by Automated fsyzr895-135TwytexmgcKindred Hospital DaytonRBC Auto (Bld) [#/Vol]on 39-31-9225QVK (Bld) [#/Vol]Erythrocytes [#/volume] in Blood by Automated count Low4.70-6.10[facility] DaytonActivated partial thromboplastin time (aPTT) in platelet poor plasma by coagulation aon 26-52-7278sEBO Coag (PPP) [Time]Activated partial thromboplastin time (aPTT) in platelet poor plasma by coagulation a22.3-36.2FSt. Mary's Medical CenterBasophils Auto (Bld) [#/Vol]on 81-11-0471Wakprqpof (Bld) [#/Vol]Automated basophil count0.0-0.1 [facility] DaytonBasophils/100 WBC Auto (Bld)on 05-24-2024 Basophils/100 WBC (Bld)Automated basophil %0.2-2.0[facility] DaytonEosinophils/100 WBC Auto (Bld)on 86-41-5209Ebpwiuswzey/100 WBC (Bld) Automated eosinophil %0.9-7.0[facility] DaytonErythrocyte distribution width Auto (RBC) [Ratio]on 37-77-0201Ljntkvmlxup distribution width (RBC) [Ratio]Erythrocyte distribution width [Ratio] by Automated countHigh 11.0-15.0[facility] DaytonEstimated glomerular filtration rate (GFR) non- Americanon 37-83-5816JGJ/1.73 sq M.predicted among non-blacks MDRD (S/P/Bld) [Vol rate/Area]Estimated glomerular filtration rate (GFR) non- >=60 mL/min/1.73m 2FSt. Mary's Medical CenterHematocrit Auto (Bld) [Volume fraction]on 75-71-4098Yoaqiyshbo (Bld) [Volume fraction] Hematocrit [Volume Fraction] of Blood by Automated hdtqlJbw72.0-54.0[facility] DaytonHemoglobin [Mass/volume] in Bloodon 55-68-1052Xlrhrpolfw (Bld) [Mass/Vol]Hemoglobin [Mass/volume] in ZmmenAzu60.0-18.0[facility] DaytonINR in Platelet poor plasma by Coagulation assayon 47-77-8654UTO Coag (PPP) [Relative time]INR in Platelet poor plasma by Coagulation assay [facility] DaytonComment on above:DESIRED INR:2.0-3.0 CONDITIONS NOT LISTED BELOW2.5-3.5 FOR PROSTHETIC HEART VALVE REPLACEMENT2.5-3.5 RECURRENT THROMBOSISLaboratory - Chemistry and Chemistry - challengeon 36-66-8510Vxtbuhr [Mass/Vol]9.5 mg/dL8.5-10.1FSt. Mary's Medical CenterChloride [Moles/Vol] 102 mmol/S05-842ThxiybpdpKindred Hospital DaytonCO2 [Moles/Vol]31.2 mmol/L 21.0-32.0[facility] DaytonCreatinine [Mass/Vol]1.19 mg/dL 0.70-1.30[facility] DaytonGFR/1.73 sq M.predicted MDRD (S/P/Bld) [Vol rate/Area]mL/min/{1.73_m2}>=60 mL/min/1.73m 2FSt. Mary's Medical CenterGlucose [Mass/Vol]130 mg/nLZnjr04-144DtbuirjwaKindred Hospital Dayton Potassium [Moles/Vol]4.2 mmol/L3.5-5.1FCincinnati Shriners Hospitalodium [Moles/Vol]138 mmol/F262-488ZanpeecitKindred Hospital DaytonUrea nitrogen [Mass/Vol]31.0 mg/dLHigh7.0-18.0[facility] DaytonUrea nitrogen/Creatinine [Mass ratio]26.1 mg/mgKindred Hospital Dayton Laboratory - Hematology and Cell countson 02-94-9056Elscuelh granulocytes/100 WBC (Bld)0.3 %0.0-0.5FSt. Mary's Medical CenterLeukocytes [#/volume] corrected for nucleated erythrocytes in Blood by Automated counon 34-49-1860RSC corrected for nucl RBC Auto (Bld) [#/Vol]Leukocytes [#/volume] corrected for nucleated erythrocytes in Blood by Automated coun4.0-11.0[facility] DaytonLymphocytes Auto (Bld) [#/Vol]on 71-74-5244Ucccahibovv (Bld) [#/Vol]Lymphocytes [#/volume] in Blood by Automated count1.2-3.8[facility] DaytonLymphocytes/100 WBC Auto (Bld)on 05-24-2024 Lymphocytes/100 WBC (Bld)Lymphocytes/100 leukocytes in Blood by Automated count 20.5-60.0[facility] HospitalH Auto (RBC) [Entitic mass]on 80-00-9147OIA (RBC) [Entitic mass]MCH [Entitic mass] by Automated count25.9-34.0 [facility] DaytonMCHC Auto (RBC) [Mass/Vol]on 31-12-8597ELHR (RBC) [Mass/Vol]MCHC [Mass/volume] by Automated count29.9-35.2FSt. Mary's Medical CenterMCV Auto (RBC) [Entitic vol]on 06-01-8879PQS (RBC) [Entitic vol] MCV [Entitic volume] by Automated count80.0-94.0[facility] DaytonMonocytes Auto (Bld) [#/Vol]on 70-50-6033Menjhzzzi (Bld) [#/Vol]Automated blood monocyte count0.3-0.8[facility] DaytonMonocytes/100 WBC Auto (Bld)on 43-43-1154Dkivfsrpz/100 WBC (Bld)Automated monocyte %1.7-12.0 [facility] DaytonNeutrophils Auto (Bld) [#/Vol]on 05-24-2024 Neutrophils (Bld) [#/Vol]Neutrophils [#/volume] in Blood by Automated count 1.4-6.5FSt. Mary's Medical CenterNeutrophils/100 WBC Auto (Bld)on 12-67-7100Xmugtxdibum/100 WBC (Bld)Automated neutrophil %43.0-75.0[facility] DaytonNo Panel Informationon 62-58-4657Hdvmekqliga # (Auto)0.1 10 3/uL0.0-0.7FSt. Mary's Medical CenterImmature Granulocyte # (Auto)0.02 10 3/uL0.00-0.03[facility] DaytonPlatelet mean volume Auto (Bld) [Entitic vol]on 93-74-9428Oqjcpafc mean volume (Bld) [Entitic vol]Platelet mean volume [Entitic volume] in Blood by Automated count9.5-13.5FSt. Mary's Medical CenterPlatelets Auto (Bld) [#/Vol]on 80-54-8275Ywoozfbkf (Bld) [#/Vol]Platelets [#/volume] in Blood by Automated aapdo433-119NjldsurmaKindred Hospital DaytonProthrombin time (PT)on 29-17-1182RA Coag (PPP) [Time]Prothrombin time (PT)9.0-11.6FSt. Mary's Medical CenterRBC Auto (Bld) [#/Vol]on 14-10-9524HGW (Bld) [#/Vol]Erythrocytes [#/volume] in Blood by Automated count Low4.70-6.10[facility] Hospital Companyerum or plasma anion gap determinationon 39-09-6751Ojxph gap [Moles/Vol]Serum or plasma anion gap determinationKindred Hospital Dayton36on 98-37-175285Jkhd faxed to the [facility] for surgery clearance.NormalSelect [facility]36 They don't mention it, but if needed can he hold Eliquis x2 days prior?Normal [facility]36NormalUniversCincinnati Children's Hospital Medical Center36 on 77-46-055768Imyujvq, says remicade will start on the 05/26 would like further clarity on what it to be given states an order came in for rexulti should both medication be given? Kassie call Emerita with further clarity [phone] [facility] HospitalOrders Onlyon 96-16-4670Rtnnno [id number] Matt Wolff 1960 M Date Provider Department Center 05/02/2024 RUDY STEWART [facility]IR[facility] RHEUM PACF Family History Family history unknown: YesNormalUniversity of Saint [facility]29on 87-32-768473Odzjbqzr by: RUDY BARR on: 04/27/2024 07:43 PM Modules accepted: Level of ServiceNormalUniverssouthwest general health center of [facility]36on 22-71-752691Sp called back and was schedule for today (04/27/24) with Dr. Choudhary @ 3:40 [facility]36Tried to call pt for the second to get him schedule for a knee injection today, no answer mNPomerene HospitalFollow-Upon 04-27-2024 Follow-UpNormalUniversity of Saint [facility] Medical CenterOrders Onlyon 90-42-8238Iremth [id number] Matt Wolff 1960 M Date Provider Department [place] 04/26/2024 RUDY STEWART [facility] RHEUM [facility] Family History Family history unknown: YesNormalUniversity of Saint [facility]36on 56-73-822914PceexkCxeyyopgus of [facility]36on 57-66-413793Dsgda faxedNormalUniversCincinnati Children's Hospital Medical CenterOrders Onlyon 80-95-8010Mwvzdq [id number] Matt Wolff 1960 M Date Provider Department Center 04/18/2024 RUDY STEWART [facility] RHEUM [facility] Family History Family history unknown: YesNormalUniversity of Saint [facility]36on 87-76-829364YS from [facility] RN placed call on hold and returned to call and call ended. TC to [facility]; LVM for a return call from Zuri HERBERT to discuss PT Infliximab order.[address] of [facility] Medical CenterTelemedicineon 37-19-9317NbohlnogzbeaOivyljMagruder Memorial Hospital36on 48-14-447027Lana visit 01/27/2024 Upcoming 04/13/2024NormalUniversity [facility] Medical CenterRefillon 04-11-2024 RefillNormalUniversity of Saint [facility] Medical CenterOrders Onlyon 14-96-4950Wfvrni [id number] Matt Wolff 1960 M Date Provider Department Center 03/03/2024 RUDY STEWART [facility] RHEUM Keila Heal Family History Family history unknown: YesNormalUniversity of Saint David'[facility] Medical CenterAlanine aminotransferase [Enzymatic activity/volume] in Serum or PlasmaOrdered By: Rudy Barr on 52-60-8746VYS [Catalytic activity/Vol]22 U/L7[facility] DaytonALT [Catalytic activity/Vol]Alanine aminotransferase [Enzymatic activity/volume] in Serum or PlasmaKindred Hospital DaytonAlbumin [Mass/volume] in Serum or Plasma by Bromocresol green (BCG) dye binding methoOrdered By: Rudy Barr on 32-52-9913Ndrwney BCG dye [Mass/Vol] 3.5 g/dL3.5-5.7FSt. Mary's Medical CenterAlbumin BCG dye [Mass/Vol] Albumin [Mass/volume] in Serum or Plasma by Bromocresol green (BCG) dye binding metho3.5-5.7FSt. Mary's Medical CenterAlkaline phosphatase [Enzymatic activity/volume] in Serum or PlasmaOrdered By: Rudy Barr on 72-68-1377SVT [Catalytic activity/Vol]57 U/A27-287MekrnfzmbKindred Hospital DaytonALP [Catalytic activity/Vol]Alkaline phosphatase [Enzymatic activity/volume] in Serum or Ggnkxb20-234DtulnemgbKindred Hospital DaytonAspartate aminotransferase [Enzymatic activity/volume] in Serum or PlasmaOrdered By: Rudy Barr on 27-06-8947UDP [Catalytic activity/Vol]20 U/I52-07RqqpolhepKindred Hospital DaytonAST [Catalytic activity/Vol]Aspartate aminotransferase [Enzymatic activity/volume] in Serum or Ytpgor41-22RjgemtmqyKindred Hospital Dayton Basophils Auto (Bld) [#/Vol]Ordered By: Rudy Barr on 03-31-6733Tvfdkdqit (Bld) [#/Vol]0.0 10*3/uL0.0-0.2FSt. Mary's Medical CenterBasophils (Bld) [#/Vol]Automated basophil count0.0-0.2FSt. Mary's Medical Center Basophils/100 WBC Auto (Bld)Ordered By: Rudy Barr on 03-02-2024 Basophils/100 WBC (Bld)0.8 %.[facility] DaytonBasophils/100 WBC (Bld)Automated basophil %.[facility] DaytonBilirubin.total [Mass/volume] in Serum or PlasmaOrdered By: Rudy Barr on 03-02-2024 Bilirubin [Mass/Vol]0.7 mg/dL0.3-1.0[facility] DaytonBilirubin [Mass/Vol]Bilirubin.total [Mass/volume] in Serum or Plasma0.3-1.0[facility] DaytonCalcium [Mass/volume] in Serum or PlasmaOrdered By: Rudy Barr on 17-29-0599Ahuuzhe [Mass/Vol]8.7 mg/dL8.6-10.3FSt. Mary's Medical CenterCalcium [Mass/Vol]Calcium [Mass/volume] in Serum or Plasma8.6-10.3 [facility] DaytonCarbon dioxide, total [Moles/volume] in Serum or PlasmaOrdered By: Rudy Barr on 24-45-0890AW4 [Moles/Vol]26.9 mmol/L 21.0-31.0[facility] DaytonCO2 [Moles/Vol]Carbon dioxide, total [Moles/volume] in Serum or Qkyfen57.0-31.0[facility] Chloride [Moles/volume] in Serum or PlasmaOrdered By: Rudy Barr on 98-26-8204Szblwusf [Moles/Vol]106 mmol/E41-571CnkamldwbKindred Hospital Dayton Chloride [Moles/Vol]Chloride [Moles/volume] in Serum or Niiqsb59-777FeoigeixgKindred Hospital DaytonCreatinine [Mass/volume] in Serum or PlasmaOrdered By: Rudy Barr on 34-41-9514Eezozpwhsc [Mass/Vol]1.46 mg/dLHigh0.70-1.30 [facility] DaytonCreatinine [Mass/Vol]Creatinine [Mass/volume] in Serum or PlasmaHigh0.70-1.30[facility] DaytonEosinophils Auto (Bld) [#/Vol]Ordered By: Rudy Barr on 10-40-3291Zsvwqabjndj (Bld) [#/Vol] 0.1 10*3/uL0.0-0.45[facility] DaytonEosinophils (Bld) [#/Vol] Automated eosinophil count0.0-0.45[facility] Eosinophils/100 WBC Auto (Bld)Ordered By: Rudy Barr on 03-02-2024 Eosinophils/100 WBC (Bld)2.1 %.[facility] DaytonEosinophils/100 WBC (Bld)Automated eosinophil %.[facility] DaytonErythrocyte distribution width Auto (RBC) [Ratio]Ordered By: Rudy Barr on 03-02-2024 Erythrocyte distribution width (RBC) [Ratio]20.6 %High12.0-14.8[facility] DaytonErythrocyte distribution width (RBC) [Ratio]Erythrocyte distribution width [Ratio] by Automated lkemuGssk09.0-14.8[facility] DaytonGlobulin Calc (S) [Mass/Vol]Ordered By: Rudy Barr on 04-51-9185Ubippvmc (S) [Mass/Vol]2.5 g/dLKindred Hospital Dayton Globulin (S) [Mass/Vol]Serum globulin measurement by calculation (mass/volume) [facility] DaytonGlucose [Mass/volume] in Serum or PlasmaOrdered By: Rudy Barr on 14-67-6849Bdwejuc [Mass/Vol]129 mg/iTQcdi81-088BlxzfzdirKindred Hospital DaytonComment on above:ADA recommended reference rangeRandom Glucose Reference Range is dependent on time and content of last meal. Glucose of more than 200 mg/dL in a nonstressed, ambulatory subject supports the diagnosisof Diabetes Mellitus.Glucose [Mass/Vol]Glucose [Mass/volume] in Serum or YyrgctIksc95-333LidhvcqhiKindred Hospital DaytonComment on above:ADA recommended reference rangeRandom Glucose Reference Range is dependent on time and content of last meal. Glucose of more than 200 mg/dL in a nonstressed, ambulatory subject supports the diagnosisof Diabetes Mellitus.Hematocrit Auto (Bld) [Volume fraction]Ordered By: Rudy Barr on 61-94-3551Lomhairsyq (Bld) [Volume fraction]31.7 %Low38.8-50.0[facility] DaytonHematocrit (Bld) [Volume fraction]Hematocrit [Volume Fraction] of Blood by Automated count Low38.8-50.0[facility] DaytonHemoglobin [Mass/volume] in Blood Ordered By: Rudy Barr on 75-68-3958Epwnzvgsqs (Bld) [Mass/Vol]10.7 g/dLLow 13.0-17.0[facility] DaytonHemoglobin (Bld) [Mass/Vol]Hemoglobin [Mass/volume] in IyfbfCxb96.0-17.0[facility] DaytonIgG [Mass/volume] in Serum or PlasmaOrdered By: Rudy Barr on 33-24-8606ZiD [Mass/Vol]925 mg/sV743-9429EbenmimlnKindred Hospital DaytonIgG subclass 1 measurementOrdered By: Rudy Barr on 34-05-0221CxJ subclass 1 (S) [Mass/Vol]525 mg/cO366-853XryleagfgKindred Hospital DaytonIgG subclass 1 (S) [Mass/Vol]IgG subclass 1 beajzkhpkwh574-504RljtmatjnKindred Hospital DaytonIgG subclass 2 measurementOrdered By: Rudy Barr on 54-26-0071LjS subclass 2 (S) [Mass/Vol]258 mg/jW893-803SehoqwxpoKindred Hospital DaytonIgG subclass 2 (S) [Mass/Vol]IgG subclass 2 heghjtpijcw083-698QcufrvataKindred Hospital Dayton IgG subclass 3 measurementOrdered By: Rudy Barr on 06-33-2349HwG subclass 3 (S) [Mass/Vol]44 mg/sJ12-426NsuarlfuwKindred Hospital DaytonIgG subclass 3 (S) [Mass/Vol]IgG subclass 3 awkadfgrpeu28-527KvjvccolkKindred Hospital Dayton IgG subclass 4 measurementOrdered By: Rudy Barr on 03-02-2024 Immunoglobulin G428 mg/dL2-96[facility] DaytonComment on above: Performed at: [facility] [id number] Director: Paco Roa PhD, Phone: [phone] [#/volume] corrected for nucleated erythrocytes in Blood by Automated counOrdered By: Rudy Barr on 33-74-5289FNS corrected for nucl RBC Auto (Bld) [#/Vol]5.4 10*3/uL4.1-10.5FSt. Mary's Medical CenterWBC corrected for nucl RBC Auto (Bld) [#/Vol]Leukocytes [#/volume] corrected for nucleated erythrocytes in Blood by Automated coun4.1-10.5FSt. Mary's Medical CenterLymphocytes Auto (Bld) [#/Vol]Ordered By: Rudy Barr on 95-42-9045Rkefqzgwetg (Bld) [#/Vol] 1.7 10*3/uL1.00-4.8[facility] DaytonLymphocytes (Bld) [#/Vol] Lymphocytes [#/volume] in Blood by Automated count1.00-4.8[facility] DaytonLymphocytes/100 WBC Auto (Bld)Ordered By: Rudy Barr on 12-19-9284Ovyxwefnuag/100 WBC (Bld)31.4 %.[facility] Lymphocytes/100 WBC (Bld)Lymphocytes/100 leukocytes in Blood by Automated count. [facility] Auto (RBC) [Entitic mass]Ordered By: Rudy Barr on 16-02-8848VBP (RBC) [Entitic mass]29.6 pg27.5-35.2FMansfield Hospital (RBC) [Entitic mass]MCH [Entitic mass] by Automated count27.5-35.2FSt. Mary's Medical CenterMCHC Auto (RBC) [Mass/Vol]Ordered By: Rudy Barr on 96-51-2020FTBA (RBC) [Mass/Vol]33.6 g/dL32.5-35.6 [facility] HospitalHC (RBC) [Mass/Vol]MCHC [Mass/volume] by Automated count32.5-35.6FSt. Mary's Medical CenterMCV Auto (RBC) [Entitic vol]Ordered By: Rudy Barr on 54-95-5712TSP (RBC) [Entitic vol]88.1 fL 83.5-101[facility] HospitalV (RBC) [Entitic vol]MCV [Entitic volume] by Automated count83.5-101[facility] DaytonMonocytes Auto (Bld) [#/Vol]Ordered By: Rudy Barr on 87-19-1806Hujbyxjra (Bld) [#/Vol]0.7 10*3/uL0.0-0.8[facility] DaytonMonocytes (Bld) [#/Vol]Automated blood monocyte count0.0-0.8[facility] Monocytes/100 WBC Auto (Bld)Ordered By: Rudy Barr on 03-02-2024 Monocytes/100 WBC (Bld)13.5 %.[facility] DaytonMonocytes/100 WBC (Bld)Automated monocyte %.[facility] DaytonNeutrophils Auto (Bld) [#/Vol]Ordered By: Rudy Barr on 62-95-2960Tzbrwrllatg (Bld) [#/Vol] 2.8 10*3/uL1.8-7.7FSt. Mary's Medical CenterNeutrophils (Bld) [#/Vol] Neutrophils [#/volume] in Blood by Automated count1.8-7.7FSt. Mary's Medical CenterNeutrophils/100 WBC Auto (Bld)Ordered By: Rudy Barr on 17-31-8771Ynspwjqefmp/100 WBC (Bld)52.2 %.[facility] Neutrophils/100 WBC (Bld)Automated neutrophil %.[facility] DaytonNo Panel InformationOrdered By: Rudy Barr on 44-30-2802Dhpbuprtf GFR (CKD-EPI)54.037 mL/MinKindred Hospital DaytonPharmacy Creatinine Clearance (ChemN/AFSt. Mary's Medical CenterNucleated erythrocytes [Presence] in Blood by Automated countOrdered By: Rudy Barr on 03-02-2024 Nucleated RBC Auto Ql (Bld)0.2 /100{WBC}0-0.5FSt. Mary's Medical Center Nucleated RBC Auto Ql (Bld)Nucleated erythrocytes [Presence] in Blood by Automated count0-0.5FSt. Mary's Medical CenterOrders Onlyon 03-02-2024 Orders [id number] Matt Wolff 1960 M Date Provider Department Center 03/02/2024 [id number], HISTORICAL RHC RHEUM Keila Heal Family History Family history unknown: YesNormalUniversity of Saint David'S [facility] Rock Medical CenterPlatelet mean volume Auto (Bld) [Entitic vol]Ordered By: Rudy Barr on 03-02-2024 Platelet mean volume (Bld) [Entitic vol]8.9 fL6.6-10.1FSt. Mary's Medical CenterPlatelet mean volume (Bld) [Entitic vol]Platelet mean volume [Entitic volume] in Blood by Automated count6.6-10.1FSt. Mary's Medical Center Platelets Auto (Bld) [#/Vol]Ordered By: Rudy Barr on 79-21-5391Cmzkhkeaf (Bld) [#/Vol]219 10*3/rG150-760KgtlaqjoeKindred Hospital DaytonPlatelets (Bld) [#/Vol]Platelets [#/volume] in Blood by Automated jejlq999-772CottizxfrKindred Hospital DaytonPotassium [Moles/volume] in Serum or PlasmaOrdered By: Rudy Barr on 10-73-0462Ejcsmehef [Moles/Vol]4.3 mmol/L3.5-5.1FSt. Mary's Medical CenterPotassium [Moles/Vol]Potassium [Moles/volume] in Serum or Plasma3.5-5.1FSt. Mary's Medical CenterProtein [Mass/volume] in Serum or PlasmaOrdered By: Rudy Barr on 86-41-1486Xabjggy [Mass/Vol]6.0 g/dLLow 6.4-8.9[facility] DaytonProtein [Mass/Vol]Protein [Mass/volume] in Serum or PlasmaLow6.4-8.9[facility] Auto (Bld) [#/Vol]Ordered By: Rudy Barr on 21-33-2092PDM (Bld) [#/Vol]3.60 10*6/uLLow 3.90-5.60[facility] (Bld) [#/Vol]Erythrocytes [#/volume] in Blood by Automated countLow3.90-5.60[facility] Companyerum or plasma IgG measurement (mass/volume)Ordered By: Rudy Barr on 88-99-4040SlL [Mass/Vol]IgG [Mass/volume] in Serum or Pexmii203-2293YaavwxtdcRegency Hospital Companyerum or plasma albumin/globulin mass ratioOrdered By: Rudy Barr on 36-44-0345Usuuvhn/Globulin [Mass ratio]1.4 {ratio}[facility] DaytonAlbumin/Globulin [Mass ratio]Serum or plasma albumin/globulin mass ratioRegency Hospital Companyerum or plasma anion gap determinationOrdered By: Rudy Barr on 62-89-7784Ncins gap [Moles/Vol]10.4 mmol/L6.0-15.0[facility] DaytonAnion gap [Moles/Vol]Serum or plasma anion gap determination6.0-15.0[facility] Companyodium [Moles/volume] in Serum or PlasmaOrdered By: Rudy Barr on 59-63-9550Ghuuib [Moles/Vol]139 mmol/E621-475CcumomramRegency Hospital Companyodium [Moles/Vol]Sodium [Moles/volume] in Serum or Nkaryx606-611 [facility] DaytonUrea nitrogen [Mass/volume] in Serum or Plasma Ordered By: Rudy Barr on 41-15-4722Aruj nitrogen [Mass/Vol]28 mg/dLHigh 7-25[facility] DaytonUrea nitrogen [Mass/Vol]Urea nitrogen [Mass/volume] in Serum or PlasmaHigh7-25[facility] DaytonWBC Auto (Bld) [#/Vol]Ordered By: Rudy Barr on 69-07-1786XHT (Bld) [#/Vol]5.4 10*3/uL4.1-10.5FSt. Mary's Medical CenterWBC (Bld) [#/Vol]Leukocytes [#/volume] in Blood by Automated count4.1-10.5FSt. Mary's Medical Center Hepatitis B virus surface Ag [Presence] in Serum or Plasma by Immunoassayon 56-01-1125PKP surface Ag IA QlNegativeNegativeKindred Hospital Dayton Myeloperoxidase Ab [Units/volume] in Serum by Immunoassayon 01-19-2024 Myeloperoxidase Ab IA Qn (S)<0.2 units0.0-0.9[facility] DaytonNo Panel Informationon 54-75-5385Gjevwocv p-ANCA<1:20 titerNeg:<1:20[facility] DaytonComment on above:The atypical pANCA pattern has been observed in asignificant percentage of patients with ulcerativecolitis,primary sclerosing cholangitis and autoimmune hepatitis.Performed at: [facility] [id number] Director: Alice Matthews MD, Phone: [phone] at: [facility] [id number] Director: Paco Roa PhD, Phone: [phone] B Core IgM AntibodyNegativeNegativeKindred Hospital DaytonComment on above:Performed at: [facility] [id number] Director: Paco Roa PhD, Phone: [phone] TestCOMMENT. [facility] DaytonComment on above:Test Ordered: [id number] Hep Be AbHep Be Ab Note: CB Non Reactive Reference Range: NegativePerformed at: [email or web address] [id number] Director: Paco Roa PhD, Phone: [phone] ANCA (p-ANCA) Antibody<1:20 titer Neg:<1:20[facility] DaytonComment on above:The presence of positive fluorescence exhibiting P-ANCA orC-ANCA patterns alone is not specific forthe diagnosis ofWegener's Granulomatosis (WG) or microscopic polyangiitis.Decisions about treatmentshould not be based solely onANCA IFA results. The [employer] ANCA Group Consensusrecommends follow up testing of positive sera with both IL-3 and MPO-ANCA enzyme immunoassays. As many as 5% serumsamples are positive only by EIA. Ref. AM J Clin Elspil1929;111:507-513. Proteinase 3 Ab [Units/volume] in Serum by Immunoassayon 75-24-0072Ladsqohvcm 3 Ab IA Qn (S)<0.2 units0.0-0.9[facility] Companyerum classic neutrophil cytoplasmic antibody titer by immunofluorescenceon 01-19-2024 Neutrophil cytoplasmic Ab.classic IF (S) [Titer]<1:20 titerNeg:<1:20[facility] DaytonBasophils Auto (Bld) [#/Vol]on 77-16-2232Vvnoofnux (Bld) [#/Vol]0.0 10 3/uL0.0-0.1FSt. Mary's Medical CenterBasophils/100 WBC Auto (Bld)on 07-65-5830Mcjxafvks/100 WBC (Bld)0.7 %0.2-2.0[facility] DaytonEosinophils/100 WBC Auto (Bld)on 80-54-9848Rhlsfpcgmos/100 WBC (Bld)3.4 % 0.9-7.0[facility] DaytonErythrocyte distribution width Auto (RBC) [Ratio]on 07-80-7582Eojjtomnzbw distribution width (RBC) [Ratio]15.3 %High 11.0-15.0[facility] DaytonEstimated glomerular filtration rate (GFR) non- Americanon 36-34-3399IHD/1.73 sq M.predicted among non-blacks MDRD (S/P/Bld) [Vol rate/Area]mL/min/{1.73_m2}>=60[facility] DaytonGlobulin Calc (S) [Mass/Vol]on 94-64-6941Pslcgfrb (S) [Mass/Vol]3.8 g/dL [facility] DaytonHematocrit Auto (Bld) [Volume fraction]on 95-15-5638Nfifmeuwov (Bld) [Volume fraction]29.7 %Low42.0-54.0[facility] DaytonHemoglobin [Mass/volume] in Bloodon 20-90-0632Xzkobaoujs (Bld) [Mass/Vol]9.5 g/dLLow14.0-18.0[facility] DaytonLaboratory - Chemistry and Chemistry - challengeon 31-50-7313Cqppgle [Mass/Vol]2.7 g/dLLow 3.4-5.0[facility] DaytonALP [Catalytic activity/Vol]75 U/L46-116 [facility] DaytonALT [Catalytic activity/Vol]21 U/L16-63 [facility] DaytonAST [Catalytic activity/Vol]16 U/L15-37 [facility] DaytonBilirubin [Mass/Vol]0.5 mg/dL0.2-1.0[facility] DaytonCalcium [Mass/Vol]8.5 mg/dL8.5-10.1FSt. Mary's Medical CenterChloride [Moles/Vol]107 mmol/G54-894DkyskkxxgKindred Hospital DaytonCO2 [Moles/Vol]29.2 mmol/L21.0-32.0[facility] Creatinine [Mass/Vol]0.99 mg/dL0.70-1.30[facility] GFR/1.73 sq M.predicted MDRD (S/P/Bld) [Vol rate/Area]mL/min/{1.73_m2}>=60 [facility] DaytonGlucose [Mass/Vol]106 mg/yC83-276YvzekvcfrKindred Hospital DaytonPotassium [Moles/Vol]4.0 mmol/L3.5-5.1FSt. Mary's Medical CenterProtein [Mass/Vol]6.5 g/dL6.4-8.2FSt. Mary's Medical Center Sodium [Moles/Vol]139 mmol/C281-243CsnelwlshKindred Hospital DaytonUrea nitrogen [Mass/Vol]17.0 mg/dL7.0-18.0[facility] DaytonUrea nitrogen/Creatinine [Mass ratio]17.2 mg/mgKindred Hospital Dayton Laboratory - Hematology and Cell countson 27-41-5357Ubpgatkn granulocytes/100 WBC (Bld)0.2 %0.0-0.5FSt. Mary's Medical CenterLeukocytes [#/volume] corrected for nucleated erythrocytes in Blood by Automated counon 99-98-1536WTF corrected for nucl RBC Auto (Bld) [#/Vol]5.9 10 3/uL4.0-11.0[facility] DaytonLymphocytes Auto (Bld) [#/Vol]on 74-23-2588Ntinducnihd (Bld) [#/Vol]1.6 10 3/uL1.2-3.8[facility] DaytonLymphocytes/100 WBC Auto (Bld)on 18-91-8507Rsnuexrfwch/100 WBC (Bld)26.7 %20.5-60.0[facility] HospitalH Auto (RBC) [Entitic mass]on 41-08-0430SIB (RBC) [Entitic mass]26.7 pg25.9-34.0[facility] DaytonMCHC Auto (RBC) [Mass/Vol]on 91-00-6935WWGR (RBC) [Mass/Vol]32.0 g/dL29.9-35.2FSt. Mary's Medical CenterMCV Auto (RBC) [Entitic vol]on 03-89-3315OQX (RBC) [Entitic vol] 83.4 fL80.0-94.0[facility] DaytonMonocytes Auto (Bld) [#/Vol]on 15-09-6756Lpdknqtfb (Bld) [#/Vol]0.5 10 3/uL0.3-0.8[facility] DaytonMonocytes/100 WBC Auto (Bld)on 62-42-0209Jbdljmfsj/100 WBC (Bld)7.8 % 1.7-12.0[facility] DaytonNeutrophils Auto (Bld) [#/Vol]on 15-31-2079Aeopqbuplir (Bld) [#/Vol]3.6 10 3/uL1.4-6.5FSt. Mary's Medical CenterNeutrophils/100 WBC Auto (Bld)on 38-03-0039Ejedfjiwvht/100 WBC (Bld)61.2 % 43.0-75.0[facility] DaytonNo Panel Informationon 11-12-2023 Eosinophils # (Auto)0.2 10 3/uL0.0-0.7FSt. Mary's Medical CenterImmature Granulocyte # (Auto)0.01 10 3/uL0.00-0.03[facility] Vancomycin Level Ebuhfz07.7 ug/mL5.0-20.0[facility] Platelet mean volume Auto (Bld) [Entitic vol]on 76-81-0399Alhylltc mean volume (Bld) [Entitic vol]11.4 fL9.5-13.5FSt. Mary's Medical CenterPlatelets Auto (Bld) [#/Vol]on 18-22-5278Cqzismuyf (Bld) [#/Vol]224 10 3/oX476-006 [facility] DaytonRBC Auto (Bld) [#/Vol]on 00-22-9013LAA (Bld) [#/Vol]3.56 10 6/uLLow4.70-6.10[facility] Companyerum or plasma albumin/globulin mass ratioon 21-27-4323Bxpnlsb/Globulin [Mass ratio]0.7 {ratio} [facility] Companyerum or plasma anion gap determinationon 12-31-3640Qwymi gap [Moles/Vol]6.8 mmol/LFSt. Mary's Medical Center Basophils Auto (Bld) [#/Vol]on 19-02-2855Lyekeulzh (Bld) [#/Vol]0.1 10 3/uL 0.0-0.1FSt. Mary's Medical CenterBasophils/100 WBC Auto (Bld)on 25-80-1480Mcfcephzj/100 WBC (Bld)0.8 %0.2-2.0[facility] Eosinophils/100 WBC Auto (Bld)on 17-94-1854Qfhthfampof/100 WBC (Bld)2.9 %0.9-7.0 [facility] DaytonErythrocyte distribution width Auto (RBC) [Ratio]on 21-17-9919Moaznocyxdh distribution width (RBC) [Ratio]15.3 %High 11.0-15.0[facility] DaytonEstimated glomerular filtration rate (GFR) non- Americanon 58-63-6466SQW/1.73 sq M.predicted among non-blacks MDRD (S/P/Bld) [Vol rate/Area]mL/min/{1.73_m2}>=60[facility] DaytonGlobulin Calc (S) [Mass/Vol]on 82-30-1223Isfynhlk (S) [Mass/Vol]4.0 g/dL [facility] DaytonGlucose mean value [Mass/volume] in Blood Estimated from glycated hemoglobinon 47-73-0708Dapecfv glucose Estimated from glycated hemoglobin (Bld) [Mass/Vol]166 mg/dLKindred Hospital Dayton Hematocrit Auto (Bld) [Volume fraction]on 21-22-8314Cuivorbthz (Bld) [Volume fraction]31.5 %Low42.0-54.0[facility] DaytonHemoglobin [Mass/volume] in Bloodon 45-67-1121Chhhfghnyr (Bld) [Mass/Vol]9.8 g/dLLow 14.0-18.0[facility] DaytonLaboratory - Chemistry and Chemistry - challengeon 98-82-1958Aokrngb [Mass/Vol]3.0 g/dLLow3.4-5.0[facility] DaytonALP [Catalytic activity/Vol]83 U/A80-068PxewrgvfpKindred Hospital DaytonALT [Catalytic activity/Vol]22 U/W52-57AktqrmvldKindred Hospital Dayton AST [Catalytic activity/Vol]18 U/N78-97WjmjecpwbKindred Hospital Dayton Bilirubin [Mass/Vol]0.5 mg/dL0.2-1.0[facility] DaytonCalcium [Mass/Vol]9.3 mg/dL8.5-10.1FSt. Mary's Medical CenterChloride [Moles/Vol] 106 mmol/V08-598QcyuhofnzKindred Hospital DaytonCO2 [Moles/Vol]27.8 mmol/L 21.0-32.0[facility] DaytonCreatinine [Mass/Vol]0.94 mg/dL 0.70-1.30[facility] DaytonGFR/1.73 sq M.predicted MDRD (S/P/Bld) [Vol rate/Area]mL/min/{1.73_m2}>=60[facility] DaytonGlucose [Mass/Vol]98 mg/jR15-037HfggqggxsKindred Hospital DaytonPotassium [Moles/Vol] 3.9 mmol/L3.5-5.1FSt. Mary's Medical CenterProtein [Mass/Vol]7.0 g/dL 6.4-8.2FCincinnati Shriners Hospitalodium [Moles/Vol]141 mmol/E833-125 [facility] DaytonUrea nitrogen [Mass/Vol]16.0 mg/dL7.0-18.0 [facility] DaytonUrea nitrogen/Creatinine [Mass ratio]17.0 mg/mg [facility] DaytonLaboratory - Hematology and Cell countson 82-79-6633ScI9b (Bld) [Mass fraction]7.4 %High4.5-6.2FSt. Mary's Medical CenterComment on above:ADA RECOMMENDED LIMIT 4.0 - 6.0ADA THERAPEUTIC TARGET < 7.0ACTION SUGGESTED> 7.0Immature granulocytes/100 WBC (Bld)0.2 %0.0-0.5FSt. Mary's Medical CenterLeukocytes [#/volume] corrected for nucleated erythrocytes in Blood by Automated counon 60-45-1197ILS corrected for nucl RBC Auto (Bld) [#/Vol]6.2 10 3/uL4.0-11.0[facility] Lymphocytes Auto (Bld) [#/Vol]on 50-34-3105Oxfwkplyhoi (Bld) [#/Vol]1.8 10 3/uL 1.2-3.8[facility] DaytonLymphocytes/100 WBC Auto (Bld)on 80-92-5891Kebefjshvgm/100 WBC (Bld)29.9 %20.5-60.0[facility] Auto (RBC) [Entitic mass]on 99-00-7907LER (RBC) [Entitic mass]26.1 pg 25.9-34.0[facility] DaytonMC Auto (RBC) [Mass/Vol]on 60-34-9372CRHB (RBC) [Mass/Vol]31.1 g/dL29.9-35.2FSt. Mary's Medical CenterMCV Auto (RBC) [Entitic vol]on 71-93-0972NYE (RBC) [Entitic vol]83.8 fL 80.0-94.0[facility] DaytonMonocytes Auto (Bld) [#/Vol]on 56-44-6887Iiwpoqyge (Bld) [#/Vol]0.4 10 3/uL0.3-0.8[facility] DaytonMonocytes/100 WBC Auto (Bld)on 72-04-4822Cpsuvbanj/100 WBC (Bld)7.0 % 1.7-12.0[facility] DaytonNeutrophils Auto (Bld) [#/Vol]on 76-75-9332Dmqtyoikjax (Bld) [#/Vol]3.6 10 3/uL1.4-6.5FSt. Mary's Medical CenterNeutrophils/100 WBC Auto (Bld)on 79-92-2489Cazdtdcjwrs/100 WBC (Bld)59.2 % 43.0-75.0[facility] DaytonNo Panel InformationOrdered By: Kole Emery on 97-44-6414Fibv Fast CultureKindred Hospital DaytonAcid Fast SmearKindred Hospital DaytonAFB Specimen ProcessingKindred Hospital DaytonNo Panel Informationon 90-11-4795Ignawk Smear Result\R\ Fungus StainKindred Hospital DaytonMiscellaneous Test CommentSee commentKindred Hospital DaytonComment on above:Specimen Source: TOELT2 - Toe Left Second - Toe Lt 2nd - 607.100Eosinophils # (Auto)0.2 10 3/uL0.0-0.7 [facility] DaytonImmature Granulocyte # (Auto)0.01 10 3/uL 0.00-0.03[facility] DaytonPlatelet mean volume Auto (Bld) [Entitic vol]on 77-02-0618Dgbgqtvh mean volume (Bld) [Entitic vol]11.3 fL 9.5-13.5FSt. Mary's Medical CenterPlatelets Auto (Bld) [#/Vol]on 08-81-3185Ghdezoesb (Bld) [#/Vol]243 10 3/sI610-954SjjbdkesxKindred Hospital DaytonRBC Auto (Bld) [#/Vol]on 10-22-7473PZD (Bld) [#/Vol]3.76 10 6/uLLow 4.70-6.10[facility] Companyerum or plasma albumin/globulin mass ratioon 81-09-6700Fwpfdik/Globulin [Mass ratio]0.8 {ratio}[facility] Companyerum or plasma anion gap determinationon 58-89-4418Iebxg gap [Moles/Vol]11.1 mmol/LFSt. Mary's Medical CenterBasophils Auto (Bld) [#/Vol]on 67-74-3557Abypbdkpx (Bld) [#/Vol]0.0 10 3/uL0.0-0.1FSt. Mary's Medical CenterBasophils/100 WBC Auto (Bld)on 04-60-0261Pvjafchhd/100 WBC (Bld) 0.6 %0.2-2.0[facility] DaytonEosinophils/100 WBC Auto (Bld)on 65-26-8395Yaqiichpsrm/100 WBC (Bld)1.3 %0.9-7.0[facility] Erythrocyte distribution width Auto (RBC) [Ratio]on 75-51-4814Jubdkdzvwvr distribution width (RBC) [Ratio]15.2 %High11.0-15.0[facility] DaytonEstimated glomerular filtration rate (GFR) non- Americanon 62-66-5531ONV/1.73 sq M.predicted among non-blacks MDRD (S/P/Bld) [Vol rate/Area]mL/min/{1.73_m2}>=60[facility] DaytonGlobulin Calc (S) [Mass/Vol]on 88-64-4685Pggrpytc (S) [Mass/Vol]4.0 g/dLKindred Hospital DaytonHematocrit Auto (Bld) [Volume fraction]on 63-05-7517Gcylcducon (Bld) [Volume fraction]29.7 %Low42.0-54.0[facility] DaytonHemoglobin [Mass/volume] in Bloodon 46-46-7639Mluqwsctiw (Bld) [Mass/Vol]9.4 g/dLLow 14.0-18.0[facility] DaytonINR in Platelet poor plasma by Coagulation assayon 45-06-9790KZX Coag (PPP) [Relative time]1.00 {INR}[facility] DaytonComment on above:DESIRED INR:2.0-3.0 CONDITIONS NOT LISTED BELOW2.5-3.5 FOR PROSTHETIC HEART VALVE REPLACEMENT2.5-3.5 RECURRENT THROMBOSISLaboratory - Chemistry and Chemistry - challengeon 05-79-6518Nrcyphr [Mass/Vol]3.0 g/dLLow3.4-5.0[facility] DaytonALP [Catalytic activity/Vol]79 U/A86-686UkiokrmpxKindred Hospital DaytonALT [Catalytic activity/Vol]24 U/S80-63RliriqmmqKindred Hospital DaytonAST [Catalytic activity/Vol]19 U/J09-55AilpuuszpKindred Hospital DaytonBilirubin [Mass/Vol]0.5 mg/dL0.2-1.0[facility] DaytonCalcium [Mass/Vol]8.5 mg/dL 8.5-10.1FSt. Mary's Medical CenterChloride [Moles/Vol]104 mmol/L98-107 [facility] DaytonCO2 [Moles/Vol]29.3 mmol/L21.0-32.0[facility] DaytonCreatinine [Mass/Vol]0.95 mg/dL0.70-1.30[facility] DaytonGFR/1.73 sq M.predicted MDRD (S/P/Bld) [Vol rate/Area] mL/min/{1.73_m2}>=60[facility] DaytonGlucose [Mass/Vol]110 mg/dL Ygmf66-852CoiqffbawKindred Hospital DaytonLactate [Moles/Vol]0.8 mmol/L0.4-2.0 [facility] DaytonNatriuretic peptide B (Bld) [Mass/Vol]53.0 pg/mL<=900.0[facility] DaytonPotassium [Moles/Vol]4.1 mmol/L 3.5-5.1FSt. Mary's Medical CenterProtein [Mass/Vol]7.0 g/dL6.4-8.2 [facility] Companyodium [Moles/Vol]140 mmol/U706-813KtlzzuklbKindred Hospital DaytonUrea nitrogen [Mass/Vol]19.0 mg/dLHigh7.0-18.0[facility] DaytonUrea nitrogen/Creatinine [Mass ratio]20.0 mg/mgKindred Hospital DaytonLaboratory - Hematology and Cell countson 11-10-2023 Immature granulocytes/100 WBC (Bld)0.3 %0.0-0.5FSt. Mary's Medical Center Leukocytes [#/volume] corrected for nucleated erythrocytes in Blood by Automated counon 26-01-2481OPC corrected for nucl RBC Auto (Bld) [#/Vol]7.1 10 3/uL 4.0-11.0[facility] DaytonLymphocytes Auto (Bld) [#/Vol]on 11-63-6545Mlqrnfprjkv (Bld) [#/Vol]2.0 10 3/uL1.2-3.8[facility] DaytonLymphocytes/100 WBC Auto (Bld)on 39-14-9889Fzezhjwoiut/100 WBC (Bld)28.5 % 20.5-60.0[facility] HospitalH Auto (RBC) [Entitic mass]on 50-57-4003FIS (RBC) [Entitic mass]26.3 pg25.9-34.0[facility] DaytonMCHC Auto (RBC) [Mass/Vol]on 08-79-1498KXJL (RBC) [Mass/Vol]31.6 g/dL 29.9-35.2FSt. Mary's Medical CenterMCV Auto (RBC) [Entitic vol]on 05-78-9172YPU (RBC) [Entitic vol]83.0 fL80.0-94.0[facility] DaytonMonocytes Auto (Bld) [#/Vol]on 94-54-1889Gamyfmbip (Bld) [#/Vol]0.5 10 3/uL0.3-0.8[facility] DaytonMonocytes/100 WBC Auto (Bld)on 80-33-5431Gjiwdnqsn/100 WBC (Bld)7.0 %1.7-12.0[facility] Neutrophils Auto (Bld) [#/Vol]on 63-66-7154Lrgwlozlged (Bld) [#/Vol]4.4 10 3/uL 1.4-6.5FSt. Mary's Medical CenterNeutrophils/100 WBC Auto (Bld)on 27-54-3047Agvmrgrkfsn/100 WBC (Bld)62.3 %43.0-75.0[facility] DaytonNo Panel InformationOrdered By: Teir Waters on 36-21-5149Svbjy Culture 2FSt. Mary's Medical CenterBlood Culture 1FSt. Mary's Medical CenterNo Panel Informationon 62-89-8301Z-Reactive Protein, Quantitative<0.50 mg/dL<=0.50[facility] DaytonEosinophils # (Auto)0.1 10 3/uL 0.0-0.7FSt. Mary's Medical CenterImmature Granulocyte # (Auto)0.02 10 3/uL0.00-0.03[facility] DaytonVenous Blood Partial Pressure CO2 37.7 mm[Hg]Low40.0-52.0[facility] DaytonVenous Blood pH7.416 7.330-7.430[facility] DaytonPlatelet mean volume Auto (Bld) [Entitic vol]on 60-39-9104Ljqnegib mean volume (Bld) [Entitic vol]11.3 fL 9.5-13.5FSt. Mary's Medical CenterPlatelets Auto (Bld) [#/Vol]on 71-76-1148Wokitwjrr (Bld) [#/Vol]231 10 3/aP579-093MtuapotzrKindred Hospital DaytonProthrombin time (PT)on 83-69-1326BH Coag (PPP) [Time]10.6 s9.0-11.6 [facility] DaytonRBC Auto (Bld) [#/Vol]on 70-97-7922LSR (Bld) [#/Vol]3.58 10 6/uLLow4.70-6.10[facility] Companyerum or plasma albumin/globulin mass ratioon 57-12-8989Ogryfxf/Globulin [Mass ratio]0.8 {ratio} [facility] Companyerum or plasma anion gap determinationon 17-49-6851Ioyho gap [Moles/Vol]10.8 mmol/LFCincinnati Shriners Hospitalerum procalcitonin measurementon 29-80-2748Wairczpjogwnk [Mass/Vol]ng/mL0.00-0.50 [facility] DaytonEstimated glomerular filtration rate (GFR) non- Americanon 41-87-7226FLD/1.73 sq M.predicted among non-blacks MDRD (S/P/Bld) [Vol rate/Area]mL/min/{1.73_m2}>=60[facility] Laboratory - Chemistry and Chemistry - challengeon 91-29-6460Mvcqutm [Mass/Vol] 9.3 mg/dL8.5-10.1FSt. Mary's Medical CenterChloride [Moles/Vol]98 mmol/L 98-107[facility] DaytonCO2 [Moles/Vol]32.2 mmol/L21.0-32.0 [facility] DaytonCreatinine [Mass/Vol]1.18 mg/dL0.70-1.30 [facility] DaytonGFR/1.73 sq M.predicted MDRD (S/P/Bld) [Vol rate/Area]mL/min/{1.73_m2}>=60[facility] DaytonGlucose [Mass/Vol]154 mg/mC54-778UdwybpkjnKindred Hospital DaytonPotassium [Moles/Vol] 4.0 mmol/L3.5-5.1FCincinnati Shriners Hospitalodium [Moles/Vol]139 mmol/L 136-145[facility] DaytonUrea nitrogen [Mass/Vol]34.0 mg/dL 7.0-18.0[facility] DaytonUrea nitrogen/Creatinine [Mass ratio] 28.8 mg/mgRegency Hospital Companyerum or plasma anion gap determinationon 22-05-1680Ihitk gap [Moles/Vol]12.8 mmol/LFSt. Mary's Medical CenterCalcium [Mass/volume] in Serum or PlasmaOrdered By: Janet Otero on 85-00-3384Gpicfmm [Mass/Vol]8.7 mg/dL8.6-10.3FSt. Mary's Medical CenterCarbon dioxide, total [Moles/volume] in Serum or PlasmaOrdered By: Janet Otero on 41-13-9162MO6 [Moles/Vol]25.3 mmol/L21.0-31.0[facility] DaytonChloride [Moles/volume] in Serum or PlasmaOrdered By: Janet Otero on 89-82-3048Gfgpkyxy [Moles/Vol]104 mmol/S43-262XwugwqpjnKindred Hospital DaytonCreatinine [Mass/volume] in Serum or PlasmaOrdered By: Janet Otero on 28-64-2068Phkdpsgfhf [Mass/Vol]1.09 mg/dL0.70-1.30[facility] DaytonGlucose [Mass/volume] in Serum or PlasmaOrdered By: Janet Otero on 38-12-6443Fduzblo [Mass/Vol]125 mg/oY07-915WixjpxigqKindred Hospital Dayton Comment on above:ADA recommended reference rangeRandom Glucose Reference Range is dependent on time and content of last meal. Glucose of more than 200 mg/dL in a nonstressed, ambulatory subject supports the diagnosisof Diabetes Mellitus.No Panel InformationOrdered By: Janet Otero on 16-36-5985Vdfnedcgr GFR (CKD-EPI) > 60.0 mL/MinKindred Hospital DaytonPharmacy Creatinine Clearance (ChemN/[facility] ColumbusPotassium [Moles/volume] in Serum or PlasmaOrdered By: Janet Otero on 28-26-9882Vwlndcvfl [Moles/Vol]5.0 mmol/L 3.5-5.1FCincinnati Shriners Hospitalerum or plasma anion gap determination Ordered By: Janet Otero on 36-28-1577Fqwuj gap [Moles/Vol]11.7 mmol/L6.0-15.0 [facility] Companyodium [Moles/volume] in Serum or PlasmaOrdered By: Janet Otero on 77-72-9512Whwrba [Moles/Vol]136 mmol/H752-016GqcckekghKindred Hospital DaytonUrea nitrogen [Mass/volume] in Serum or PlasmaOrdered By: Janet Otero on 94-48-5926Sunu nitrogen [Mass/Vol]29 mg/dL7-25[facility] DaytonValproate [Mass/volume] in Serum or PlasmaOrdered By: Helen Sanford on 01-06-1717Aahwjrsjw [Mass/Vol]18.9 ug/mL50.0-100.0[facility] DaytonComment on above:Last dose: -Alanine aminotransferase [Enzymatic activity/volume] in Serum or PlasmaOrdered By: Suraj Liz on 42-43-2157OCS [Catalytic activity/Vol]9 U/L7-52[facility] Albumin [Mass/volume] in Serum or Plasma by Bromocresol green (BCG) dye binding methoOrdered By: Suraj Liz on 59-16-7450Nfqiavx BCG dye [Mass/Vol]3.7 g/dL 3.5-5.7FSt. Mary's Medical CenterAlkaline phosphatase [Enzymatic activity/volume] in Serum or PlasmaOrdered By: Suraj Liz on 38-56-1986MKI [Catalytic activity/Vol]69 U/M34-782NlivjpedtKindred Hospital DaytonAspartate aminotransferase [Enzymatic activity/volume] in Serum or PlasmaOrdered By: Suraj Liz on 58-28-1892DDB [Catalytic activity/Vol]13 U/Y89-94InbvkbtxnKindred Hospital DaytonBasophils Auto (Bld) [#/Vol]Ordered By: Suraj Liz on 63-10-5140Steleaazt (Bld) [#/Vol]0.1 10*3/uL0.0-0.2FSt. Mary's Medical CenterBasophils/100 WBC Auto (Bld)Ordered By: Suraj Liz on 04-23-2023 Basophils/100 WBC (Bld)1.0 %.[facility] DaytonBilirubin.total [Mass/volume] in Serum or PlasmaOrdered By: Suraj Liz on 38-39-4599Ihkqlamru [Mass/Vol]0.4 mg/dL0.3-1.0[facility] DaytonCalcium [Mass/volume] in Serum or PlasmaOrdered By: Suraj Liz on 19-78-3071Wprwlhp [Mass/Vol]8.9 mg/dL8.6-10.3FSt. Mary's Medical CenterCarbon dioxide, total [Moles/volume] in Serum or PlasmaOrdered By: Suraj Liz on 30-72-4761EB2 [Moles/Vol]28.1 mmol/L21.0-31.0[facility] DaytonChloride [Moles/volume] in Serum or PlasmaOrdered By: Suraj Liz on 94-43-4224Eepjozoh [Moles/Vol]101 mmol/V64-049RmlolbivqKindred Hospital DaytonCreatinine [Mass/volume] in Serum or PlasmaOrdered By: Suraj Liz on 20-09-7563Upuixexipq [Mass/Vol]0.89 mg/dL0.70-1.30[facility] DaytonEosinophils Auto (Bld) [#/Vol]Ordered By: Suraj Liz on 94-13-6641Dxucgxygeoy (Bld) [#/Vol]0.2 10*3/uL0.0-0.45[facility] DaytonEosinophils/100 WBC Auto (Bld) Ordered By: Suraj Liz on 34-43-1210Afyiokfchpf/100 WBC (Bld)3.0 %.[facility] DaytonErythrocyte distribution width Auto (RBC) [Ratio]Ordered By: Suraj Liz on 07-94-9303Isayddfmust distribution width (RBC) [Ratio]16.6 % 12.0-14.8[facility] DaytonGlobulin Calc (S) [Mass/Vol]Ordered By: Suraj Liz 20-96-0944Fvkzceny (S) [Mass/Vol]3.8 g/dLKindred Hospital DaytonGlucose [Mass/volume] in Serum or PlasmaOrdered By: Suraj Liz on 93-32-0364Comwutb [Mass/Vol]130 mg/eI10-256YasprzomnKindred Hospital Dayton Comment on above:ADA recommended reference rangeRandom Glucose Reference Range is dependent on time and content of last meal. Glucose of more than 200 mg/dL in a nonstressed, ambulatory subject supports the diagnosisof Diabetes Mellitus. Hematocrit Auto (Bld) [Volume fraction]Ordered By: Suraj Liz on 04-23-2023 Hematocrit (Bld) [Volume fraction]32.4 %38.8-50.0[facility] DaytonHemoglobin [Mass/volume] in BloodOrdered By: Suraj Liz on 04-23-2023 Hemoglobin (Bld) [Mass/Vol]10.4 g/dL13.0-17.0[facility] Leukocytes [#/volume] corrected for nucleated erythrocytes in Blood by Automated counOrdered By: Suraj Liz on 33-80-7777RIT corrected for nucl RBC Auto (Bld) [#/Vol]8.1 10*3/uL4.1-10.5FSt. Mary's Medical CenterLipase [Enzymatic activity/volume] in Serum or PlasmaOrdered By: Suraj Liz on 32-38-5089Ecorpn [Catalytic activity/Vol]64.0 U/L11.0-82.0[facility] Lymphocytes Auto (Bld) [#/Vol]Ordered By: Suraj Liz on 17-60-8656Vxjmbvnebmw (Bld) [#/Vol]2.0 10*3/uL1.00-4.8[facility] DaytonLymphocytes/100 WBC Auto (Bld)Ordered By: Suraj Liz on 09-93-0404Kapgvmmavby/100 WBC (Bld) 24.4 %.[facility] Auto (RBC) [Entitic mass]Ordered By: Suraj Liz on 49-17-5966QGC (RBC) [Entitic mass]24.7 pg27.5-35.2FSt. Mary's Medical CenterMCHC Auto (RBC) [Mass/Vol]Ordered By: Suraj Liz on 33-53-0226HRMF (RBC) [Mass/Vol]32.1 g/dL32.5-35.6FSt. Mary's Medical CenterMCV Auto (RBC) [Entitic vol]Ordered By: Suraj Liz on 90-90-1882QLU (RBC) [Entitic vol]76.7 fL83.5-101[facility] DaytonMonocytes Auto (Bld) [#/Vol]Ordered By: Suraj Liz on 32-64-0217Hnzscafzq (Bld) [#/Vol] 0.7 10*3/uL0.0-0.8[facility] DaytonMonocytes/100 WBC Auto (Bld) Ordered By: Suraj Liz on 58-80-4812Nkzzgweix/100 WBC (Bld)8.2 %.[facility] DaytonNeutrophils Auto (Bld) [#/Vol]Ordered By: Suraj Liz on 63-76-0628Gcrabjppgqo (Bld) [#/Vol]5.2 10*3/uL1.8-7.7FSt. Mary's Medical CenterNeutrophils/100 WBC Auto (Bld)Ordered By: Suraj Liz on 04-23-2023 Neutrophils/100 WBC (Bld)63.4 %.[facility] DaytonNo Panel InformationOrdered By: Suraj Liz on 93-15-0850Khxehohmk GFR (CKD-EPI)> 60.0 mL/MinKindred Hospital DaytonPharmacy Creatinine Clearance (ChemN/A [facility] DaytonNucleated erythrocytes [Presence] in Blood by Automated countOrdered By: Suraj Liz on 96-94-3108Zzgngxjvb RBC Auto Ql (Bld) 0.1 /100{WBC}0-0.5FSt. Mary's Medical CenterPlatelet mean volume Auto (Bld) [Entitic vol]Ordered By: Suraj Liz on 76-24-6170Btygqfge mean volume (Bld) [Entitic vol]9.1 fL6.6-10.1FSt. Mary's Medical CenterPlatelets Auto (Bld) [#/Vol]Ordered By: Suraj Liz on 02-18-8576Fqvwxxcem (Bld) [#/Vol]276 10*3/tA394-537MvfszrdbwKindred Hospital DaytonPotassium [Moles/volume] in Serum or PlasmaOrdered By: Suraj Liz on 57-98-9040Oswnfxwep [Moles/Vol]4.7 mmol/L 3.5-5.1FSt. Mary's Medical CenterProtein [Mass/volume] in Serum or Plasma Ordered By: Suraj Liz on 55-53-2076Bghkzqp [Mass/Vol]7.5 g/dL6.4-8.9[facility] DaytonRBC Auto (Bld) [#/Vol]Ordered By: Suraj Liz on 18-72-6019BTB (Bld) [#/Vol]4.23 10*6/uL3.90-5.60[facility] Companyerum or plasma albumin/globulin mass ratioOrdered By: Suraj Liz on 66-77-8643Jbclung/Globulin [Mass ratio]1.0 {ratio}[facility] Companyerum or plasma anion gap determinationOrdered By: Suraj Liz on 82-13-1587Imaiv gap [Moles/Vol]10.6 mmol/L6.0-15.0[facility] Companyodium [Moles/volume] in Serum or PlasmaOrdered By: Suraj Liz on 61-86-2721Uhwxub [Moles/Vol]135 mmol/E005-692HxackheohKindred Hospital Dayton Urea nitrogen [Mass/volume] in Serum or PlasmaOrdered By: Suraj Liz on 47-81-2805Nkwk nitrogen [Mass/Vol]26 mg/dL7-25[facility] WBC Auto (Bld) [#/Vol]Ordered By: Suraj Liz on 77-34-4403WDF (Bld) [#/Vol]8.1 10*3/uL4.1-10.5FSt. Mary's Medical CenterCHEMISTRYOrdered By: Lab TITOUser on 25-48-2095Mqfzqgh [Mass/Vol]148 mg/hDNvlt17 - 99 mg/dLFTMC POC SubsectionComment on above:Result Comment: Notified RN/MDPOC Device SN [id number] Interpretation CodeFTMC POC SubsectionPOC User [id number] Invalid Interpretation CodeFTMC POC SubsectionPOC UsernamEMERITA RooneyInvalid Interpretation CodeFTMC POC SubsectionCHEMISTRYOrdered By: Lab ROPUser on 28-92-8610Uqooysd [Mass/Vol]174 mg/kJBxqp76 - 99 mg/dLFTMC POC SubsectionComment on above:Result Comment: Notified RN/MDPOC Device [id number] Interpretation CodeFTMC POC SubsectionPOC User [id number] Interpretation CodeFTMC POC SubsectionPOC UsernamAlex Jeffriesvalid Interpretation CodeFTMC POC SubsectionGlucose [Mass/Vol]150 mg/jNYqjy13 - 99 mg/dLFTMC POC SubsectionComment on above:Result Comment: Notified RN/MDPOC Device SN [id number] Interpretation CodeFTMC POC SubsectionPOC User [id number] Invalid Interpretation CodeFTMC POC SubsectionPOC UsernamBruce Perdue Interpretation CodeFTMC POC SubsectionCHEMISTRYOrdered By: SYSTEM SYSTEM on 41-07-3434Sjsbzkttqw trough [Moles/Vol]17 microgram/pYPavjws51 - 20 mcg/mLFTMC RemisolCHEMISTRYOrdered By: SYSTEM SYSTEM on 85-98-4616Hqodh gap [Moles/Vol]9 mmol/LNormal6 - 16 mEq/LFTMC RemisolCalcium [Mass/Vol]8.6 mg/dLLow8.9 - 11.1 mg/dLFTMC RemisolChloride [Moles/Vol]107 mmol/FRgvjky428 - 111 mmol/LFTMC RemisolCO2 [Moles/Vol]28 mmol/FRnzsyn46 - 31 mmol/LFTMC RemisolCreatinine [Mass/Vol]1.1 mg/dLNormal0.5 - 1.3 mg/dLFTMC RemisolGFR/1.73 sq M.predicted among non-blacks MDRD (S/P/Bld) [Vol rate/Area]76 mL/min/1.73 t3Cjzqtq >=59mL/min/1.73 m2FT[facility] Chem SGlucose [Mass/Vol]165 mg/jNRxmviv81 - 199 mg/dLFTMC RemisolPotassium [Moles/Vol]3.3 mmol/LLow3.5 - 5.3 mmol/LFTMC RemisolSodium [Moles/Vol]141 mmol/FJzkacx539 - 145 mmol/LFTMC RemisolUrea nitrogen [Mass/Vol] 25 mg/dLHigh5 - 21 mg/dLFTMC RemisolUrea nitrogen/Creatinine [Mass ratio]23 mg/ljPhpn15 - 20FT[facility] RemisolCHEMISTRYOrdered By: SYSTEM SYSTEM on 01-12-2023 Vancomycin trough [Moles/Vol]16 microgram/xCLhdrqz86 - 20 mcg/mLFTMC Remisol Vancomycin peak [Moles/Vol]27 microgram/jDDwucky99 - 40 mcg/mLFTMC Remisol CHEMISTRYOrdered By: SYSTEM SYSTEM on 55-83-8830Tsvte gap [Moles/Vol]11 mmol/L Normal6 - 16 mEq/LFTMC RemisolCalcium [Mass/Vol]8.8 mg/dLLow8.9 - 11.1 mg/dLFTMC RemisolChloride [Moles/Vol]106 mmol/JWcirpn972 - 111 mmol/LFTMC RemisolCO2 [Moles/Vol]29 mmol/IQrwpcq33 - 31 mmol/LFTMC RemisolCreatinine [Mass/Vol]1.0 mg/dLNormal0.5 - 1.3 mg/dLFTMC RemisolGFR/1.73 sq M.predicted among non-blacks MDRD (S/P/Bld) [Vol rate/Area]86 mL/min/1.73 a2Fdbcsp>=59mL/min/1.73 m2FT[facility] Chem SGlucose [Mass/Vol]158 mg/fZQxcgfy20 - 199 mg/dLFTMC RemisolPotassium [Moles/Vol]3.7 mmol/LNormal3.5 - 5.3 mmol/LFTMC RemisolSodium [Moles/Vol]142 mmol/OZfxwtu756 - 145 mmol/LFTMC RemisolUrea nitrogen [Mass/Vol]23 mg/dLHigh5 - 21 mg/dLFTMC RemisolUrea nitrogen/Creatinine [Mass ratio]23 mg/igUzlq11 - 20FT[facility] RemisolCHEMISTRYOrdered By: Piedad Linda on 24-39-6503KvK1c (Bld) [Mass fraction]7.7 %High<=5.9%[facility] ChemAutoSSHEMATOLOGYOrdered By: SYSTEM SYSTEM on 43-42-2223Oomgdqwwl/100 WBC (Bld)0.8 %Normal0.0 - 2.0 %[facility] HemeAutoSS Basophils/Leukocytes Auto (Bld) [Pure # fraction]0.0 E9/LNormal0.0 - 0.2 E9/L [facility] HemeAutoSSEosinophils/100 WBC (Bld)1.7 %Normal0.0 - 8.0 %[facility] HemeAutoSS Eosinophils/Leukocytes Auto (Bld) [Pure # fraction]0.1 E9/LNormal0.0 - 0.5 E9/L [facility] HemeAutoSSLymphocytes/100 WBC (Bld)25.1 %Bhavtt54.0 - 50.0 %[facility] HemeAutoSS Lymphocytes/Leukocytes Auto (Bld) [Pure # fraction]1.5 E9/LNormal1.0 - 4.0 E9/L [facility] HemeAutoSSMonocytes/100 WBC (Bld)9.2 %Normal4.0 - 14.0 %[facility] HemeAutoSS Monocytes/Leukocytes Auto (Bld) [Pure # fraction]0.5 E9/LNormal0.2 - 1.0 E9/L [facility] HemeAutoSSNeutrophils/100 WBC (Bld)63.2 %Opewvz25.0 - 75.0 %[facility] HemeAutoSS Neutrophils/Leukocytes Auto (Bld) [Pure # fraction]3.7 E9/LNormal2.0 - 7.5 E9/L [facility] HemeAutoSSHEMATOLOGYOrdered By: Franci Lane on 01-60-3572Hugdhgilukc distribution width (RBC) [Ratio]16.7 %High10.9 - 14.2 %[facility] HemeAutoSSHematocrit (Bld) [Volume fraction]31.4 %Low37.7 - 49.0 %[facility] HemeAutoSSHemoglobin (Bld) [Mass/Vol]10.1 g/dLLow13.5 - 17.5 gm/dLFTMC HemeAutoSSMCH (RBC) [Entitic mass] 25.5 pgLow27.0 - 34.0 pgFTMC HemeAutoSSMCHC (RBC) [Mass/Vol]32.2 g/rIRqsquv13.4 - 36.0 gm/dLFTMC HemeAutoSSMCV (RBC) [Entitic vol]79.3 fLLow80.0 - 100.0 fLFTMC HemeAutoSSPlatelet mean volume (Bld) [Entitic vol]8.5 fLNormal6.4 - 10.8 fLFTMC HemeAutoSSPlatelets (Bld) [#/Vol]286.0 E9/SYuqbgf610.0 - 500.0 E9/LFTMC HemeAutoSSRBC (Bld) [#/Vol]4.0 E12/LLow4.3 - 5.9 E12/LFTMC HemeAutoSSWBC corrected for nucl RBC Auto (Bld) [#/Vol]5.8 E9/LNormal4.0 - 11.0 E9/LFTMC HemeAutoSSNo Panel InformationOrdered By: Margret wilmer on 81-31-9650TNIirkojoemk White Blood Cells Occasional Gram Positive Cocci Occasional Gram Positive RodsSelect Medical [facility], AvonWound Culture2+ Gram Positive Rods resembling diphtheroidsSelect Medical [facility] Clinic Rehabilitation Hospital, AvonCHEMISTRY Ordered By: SYSTEM SYSTEM on 29-22-4843Btdhwdt [Mass/Vol]1.5 mmol/LNormal0.5 - 2.2 mmol/LFTMC RemisolAlbumin [Mass/Vol]3.4 g/dLNormal3.3 - 5.0 gm/dLFTMC RemisolAlbumin/Globulin [Mass ratio]0.7 {ratio}Low1.1 - 2.2FT[facility] RemisolALP [Catalytic activity/Vol]61 [iU]/vWltpiy11 - 98 Int._Unit/LFTMC RemisolALT No additional P-5'-P [Catalytic activity/Vol]11 [iU]/dNormal6 - 46 Int._Unit/LFTMC RemisolAnion gap [Moles/Vol]12 mmol/LNormal6 - 16 mEq/LFT[facility] RemisolAST [Catalytic activity/Vol]16 [iU]/dNormal5 - 43 Int._Unit/LFTMC RemisolBilirubin [Mass/Vol]0.6 mg/dLNormal0.0 - 1.1 mg/dLFT RemisolCalcium [Mass/Vol]9.2 mg/dL Normal8.9 - 11.1 mg/dLFTMC RemisolChloride [Moles/Vol]103 mmol/HRhmroh395 - 111 mmol/LFTMC RemisolCO2 [Moles/Vol]29 mmol/HKxiifq55 - 31 mmol/LFTMC Remisol Creatinine [Mass/Vol]0.9 mg/dLNormal0.5 - 1.3 mg/dLFT RemisolGFR/1.73 sq M.predicted among non-blacks MDRD (S/P/Bld) [Vol rate/Area]97 mL/min/1.73 m2 Normal>=59mL/min/1.73 m2FT Chem SGlobulin (S) [Mass/Vol]4.8 g/dLHigh1.4 - 4.0 gm/dLFT RemisolGlucose [Mass/Vol]197 mg/vWUbvfod39 - 199 mg/dLFT Remisol Lactate [Mass/Vol]1.7 mmol/LNormal0.5 - 2.2 mmol/LFTMC RemisolPotassium [Moles/Vol]4.0 mmol/LNormal3.5 - 5.3 mmol/LFTMC RemisolProtein [Mass/Vol]8.2 g/dLHigh6.0 - 7.8 gm/dLFT RemisolSodium [Moles/Vol]140 mmol/ZDnywsi606 - 145 mmol/LFTMC RemisolTroponin I.cardiac [Mass/Vol]3.70 pg/mLLow15.90 - 38.40 pg/mL FT RemisolUrea nitrogen [Mass/Vol]19 mg/dLNormal5 - 21 mg/dLFTMC RemisolUrea nitrogen/Creatinine [Mass ratio]21 mg/yhOkfn34 - 20FT[facility] RemisolCHEMISTRYOrdered By: Franci Lane on 55-36-9666Ttotcodvhdm peptide B (Bld) [Mass/Vol]52 pg/mL Normal5 - 80 pg/mLFT HemeManSSCOAGULATIONOrdered By: Quynh Arshad on 51-15-6860zADY Coag (PPP) [Time]37.6 sHigh25.1 - 36.5 second(s)[facility] Auto CoagINR Coag (PPP) [Relative time]1.2 {INR}Invalid Interpretation CodeFTMC Auto CoagPT Coag (PPP) [Time]13.4 sHigh9.4 - 12.5 second(s)[facility] Auto CoagHEMATOLOGYOrdered By: SYSTEM SYSTEM on 91-91-3928Knhluxezj/100 WBC (Bld)0.7 %Normal0.0 - 2.0 %[facility] HemeAutoSSBasophils/Leukocytes Auto (Bld) [Pure # fraction]0.0 E9/LNormal0.0 - 0.2 E9/LFTMC HemeAutoSSEosinophils/100 WBC (Bld)1.3 %Normal0.0 - 8.0 %[facility] HemeAutoSSEosinophils/Leukocytes Auto (Bld) [Pure # fraction]0.1 E9/LNormal0.0 - 0.5 E9/LFTMC HemeAutoSSLymphocytes/100 WBC (Bld)22.5 %Tcnwht49.0 - 50.0 %[facility] HemeAutoSSLymphocytes/Leukocytes Auto (Bld) [Pure # fraction]1.5 E9/LNormal1.0 - 4.0 E9/LFTMC HemeAutoSSMonocytes/100 WBC (Bld)8.5 %Normal4.0 - 14.0 %[facility] HemeAutoSSMonocytes/Leukocytes Auto (Bld) [Pure # fraction]0.6 E9/LNormal0.2 - 1.0 E9/LFTMC HemeAutoSSNeutrophils/100 WBC (Bld)67.0 %Dprcxr81.0 - 75.0 %[facility] HemeAutoSSNeutrophils/Leukocytes Auto (Bld) [Pure # fraction]4.5 E9/LNormal2.0 - 7.5 E9/LFTMC HemeAutoSSHEMATOLOGYOrdered By: Franci Lane on 01-10-2023 Erythrocyte distribution width (RBC) [Ratio]17.1 %High10.9 - 14.2 %[facility] HemeAutoSSHematocrit (Bld) [Volume fraction]34.9 %Low37.7 - 49.0 %[facility] HemeAutoSSHemoglobin (Bld) [Mass/Vol]11.2 g/dLLow13.5 - 17.5 gm/dLFTMC HemeAutoSSMCH (RBC) [Entitic mass]25.4 pgLow27.0 - 34.0 pgFTMC HemeAutoSSMCHC (RBC) [Mass/Vol]32.2 g/lUJrboxp31.4 - 36.0 gm/dLFTMC HemeAutoSSMCV (RBC) [Entitic vol]79.1 fLLow80.0 - 100.0 fLFTMC HemeAutoSSPlatelet mean volume (Bld) [Entitic vol]8.8 fLNormal6.4 - 10.8 fLFTMC HemeAutoSSPlatelets (Bld) [#/Vol] 327.0 E9/GLkewpo047.0 - 500.0 E9/LFTMC HemeAutoSSRBC (Bld) [#/Vol]4.4 E12/L Normal4.3 - 5.9 E12/LFTMC HemeAutoSSWBC corrected for nucl RBC Auto (Bld) [#/Vol]6.8 E9/LNormal4.0 - 11.0 E9/LFTMC HemeAutoSSNo Panel InformationOrdered By: ANGPROCESSSERVER MICROBIOLOGY on 63-24-3327Ajslk Culture CharcoalNo growth at 5 days. Final to follow at 7 days.[facility], AvonCHEMISTRY Ordered By: Lab ROPUser on 82-95-5247Aribvsf [Mass/Vol]157 mg/yZTxmf27 - 99 mg/dLFTMC POC SubsectionComment on above:Result Comment: Cleaned MeterPOC Device [id number] Interpretation CodeFTMC POC SubsectionPOC User ID [id number] Interpretation CodeFTMC POC SubsectionPOC UsernameMARTIN, LESA Invalid Interpretation CodeFT[facility] POC SubsectionGlucose [Mass/Vol]126 mg/lZAvyv98 - 99 mg/dLFTMC POC SubsectionComment on above:Result Comment: Cleaned MeterPOC Device [id number] Interpretation CodeFTMC POC SubsectionPOC User ID [id number] Interpretation CodeFT[facility] POC SubsectionPOC UsernameMARTIN, LESA Invalid Interpretation CodeFT[facility] POC SubsectionCHEMISTRYOrdered By: SYSTEM SYSTEM on 90-47-7409Whrdz gap [Moles/Vol]11 mmol/LNormal6 - 16 mEq/LFT[facility] Remisol Calcium [Mass/Vol]8.5 mg/dLLow8.9 - 11.1 mg/dLFTMC RemisolChloride [Moles/Vol] 105 mmol/FAjcrvk994 - 111 mmol/LFT[facility] RemisolCO2 [Moles/Vol]26 mmol/PAijaed59 - 31 mmol/LFTMC RemisolCreatinine [Mass/Vol]1.2 mg/dLNormal0.5 - 1.3 mg/dLFTMC RemisolGFR/1.73 sq M.predicted among blacks MDRD (S/P/Bld) [Vol rate/Area] mL/min/1.73 e1Twiqfv>=59mL/min/1.73 m2[facility] Chem SGFR/1.73 sq M.predicted among non-blacks MDRD (S/P/Bld) [Vol rate/Area]mL/min/1.73 m8Qlokgk>=59mL/min/1.73 m2 [facility] Chem SGlucose [Mass/Vol]141 mg/sQNcuqpq97 - 199 mg/dLFTMC RemisolMagnesium [Mass/Vol]1.9 mg/dLNormal1.3 - 2.4 mg/dLFTMC RemisolPhosphate [Mass/Vol]3.4 mg/dLNormal1.9 - 4.6 mg/dLFTMC RemisolPotassium [Moles/Vol]3.7 mmol/LNormal3.5 - 5.3 mmol/LFTMC RemisolSodium [Moles/Vol]138 mmol/HMgkfoa125 - 145 mmol/LFTMC RemisolUrea nitrogen [Mass/Vol]25 mg/dLHigh5 - 21 mg/dLFTMC RemisolUrea nitrogen/Creatinine [Mass ratio]21 mg/ghWikn50 - 20FT[facility] RemisolVancomycin peak [Moles/Vol]15 microgram/mLInvalid Interpretation Code20 - 40 mcg/mLFTMC Remisol Comment on above:Result Comment: Critical Result S_VANC_P:15.0 Called to SAMIR VALENZUELA AT 3S by ROBBI MIRANDA And Read Back For Confirmation at: 08/18/2022 07:23:55HEMATOLOGYOrdered By: SYSTEM SYSTEM on 25-36-6507Nqqewyknu/100 WBC (Bld) 0.7 %Normal0.0 - 2.0 %[facility] HemeAutoSSBasophils/Leukocytes Auto (Bld) [Pure # fraction]0.1 E9/LNormal0.0 - 0.2 E9/LFTMC HemeAutoSSEosinophils/100 WBC (Bld)5.8 %Normal0.0 - 8.0 %[facility] HemeAutoSSEosinophils/Leukocytes Auto (Bld) [Pure # fraction]0.4 E9/LNormal0.0 - 0.5 E9/LFTMC HemeAutoSSLymphocytes/100 WBC (Bld) 25.6 %Brmkqh73.0 - 50.0 %[facility] HemeAutoSSLymphocytes/Leukocytes Auto (Bld) [Pure # fraction]1.9 E9/LNormal1.0 - 4.0 E9/LFTMC HemeAutoSSMonocytes/100 WBC (Bld)5.7 %Normal4.0 - 14.0 %[facility] HemeAutoSSMonocytes/Leukocytes Auto (Bld) [Pure # fraction]0.4 E9/LNormal0.2 - 1.0 E9/LFTMC HemeAutoSSNeutrophils/100 WBC (Bld) 62.2 %Ymzwpu52.0 - 75.0 %[facility] HemeAutoSSNeutrophils/Leukocytes Auto (Bld) [Pure # fraction]4.6 E9/LNormal2.0 - 7.5 E9/LFTMC HemeAutoSSHEMATOLOGYOrdered By: Shayy Limon on 03-89-0842Heugryajinb distribution width (RBC) [Ratio]16.0 % High10.9 - 14.2 %[facility] HemeAutoSSHematocrit (Bld) [Volume fraction]26.2 %Low37.7 - 49.0 %[facility] HemeAutoSSHemoglobin (Bld) [Mass/Vol]8.1 g/dLLow13.5 - 17.5 gm/dL [facility] HemeAutoSSHypochromia Auto Ql (Bld)Present (08/18/22 6:01 AM)NormalFTMC HemeManSSMCH (RBC) [Entitic mass]23.1 pgLow27.0 - 34.0 pgFTMC HemeAutoSSMCHC (RBC) [Mass/Vol]30.8 g/dLLow31.4 - 36.0 gm/dLFTMC HemeAutoSSMCV (RBC) [Entitic vol]75.1 fLLow80.0 - 100.0 fLFTMC HemeAutoSS Microcytes Ql (Bld)Present (08/18/22 6:01 AM)NormalFTMC HemeManSSMorphology Errol (Bld) [Interp]See Morphology (08/18/22 6:01 AM)NormalFTMC HemeManSSPlatelet mean volume (Bld) [Entitic vol]7.5 fLNormal6.4 - 10.8 fLFTMC HemeAutoSSPlatelets (Bld) [#/Vol]369.0 E9/VXupnpg103.0 - 500.0 E9/LFTMC HemeAutoSSRBC (Bld) [#/Vol]3.5 E12/LLow4.3 - 5.9 E12/LFTMC HemeAutoSSWBC corrected for nucl RBC Auto (Bld) [#/Vol]7.5 E9/LNormal4.0 - 11.0 E9/LFTMC HemeAutoSSCHEMISTRYOrdered By: Lab TITOUser on 89-02-3303Xokpkqn [Mass/Vol]169 mg/xZAvsy10 - 99 mg/dLFTMC POC SubsectionComment on above:Result Comment: Cleaned MeterPOC Device [id number] Interpretation CodeFTMC POC SubsectionPOC User [id number] Interpretation CodeFTMC POC Subsection POC UsernamBuzz MINInvalid Interpretation CodeFTMC POC SubsectionCHEMISTRY Ordered By: SYSTEM SYSTEM on 57-41-0418Nmkvf gap [Moles/Vol]11 mmol/LNormal6 - 16 mEq/LFTMC RemisolCalcium [Mass/Vol]8.4 mg/dLLow8.9 - 11.1 mg/dLFTMC Remisol Chloride [Moles/Vol]104 mmol/QRdtifl516 - 111 mmol/LFTMC RemisolCO2 [Moles/Vol] 25 mmol/INxleiq06 - 31 mmol/LFTMC RemisolCreatinine [Mass/Vol]1.3 mg/dLNormal0.5 - 1.3 mg/dLFTMC RemisolGFR/1.73 sq M.predicted among blacks MDRD (S/P/Bld) [Vol rate/Area]mL/min/1.73 l0Ivqumw>=59mL/min/1.73 m2FT[facility] Chem SGFR/1.73 sq M.predicted among non-blacks MDRD (S/P/Bld) [Vol rate/Area]56 mL/min/1.73 m2Low >=59mL/min/1.73 m2FT[facility] Chem SGlucose [Mass/Vol]236 mg/eUNmgo93 - 199 mg/dLFTMC RemisolPotassium [Moles/Vol]3.8 mmol/LNormal3.5 - 5.3 mmol/LFTMC RemisolSodium [Moles/Vol]136 mmol/TGpgure204 - 145 mmol/LFTMC RemisolUrea nitrogen [Mass/Vol] 26 mg/dLHigh5 - 21 mg/dLFTMC RemisolUrea nitrogen/Creatinine [Mass ratio]20 mg/rgQisxdz99 - 20FT[facility] RemisolVancomycin trough [Moles/Vol]20 microgram/mLNormal 10 - 20 mcg/mLFTMC RemisolHEMATOLOGYOrdered By: [employer] SYSTEM on 08-17-2022 Basophils/100 WBC (Bld)1.0 %Normal0.0 - 2.0 %[facility] HemeAutoSSBasophils/Leukocytes Auto (Bld) [Pure # fraction]0.1 E9/LNormal0.0 - 0.2 E9/LFTMC HemeAutoSS Eosinophils/100 WBC (Bld)7.1 %Normal0.0 - 8.0 %[facility] HemeAutoSS Eosinophils/Leukocytes Auto (Bld) [Pure # fraction]0.4 E9/LNormal0.0 - 0.5 E9/L [facility] HemeAutoSSLymphocytes/100 WBC (Bld)27.2 %Xrkjhy75.0 - 50.0 %[facility] HemeAutoSS Lymphocytes/Leukocytes Auto (Bld) [Pure # fraction]1.6 E9/LNormal1.0 - 4.0 E9/L [facility] HemeAutoSSMonocytes/100 WBC (Bld)6.3 %Normal4.0 - 14.0 %[facility] HemeAutoSS Monocytes/Leukocytes Auto (Bld) [Pure # fraction]0.4 E9/LNormal0.2 - 1.0 E9/L [facility] HemeAutoSSNeutrophils/100 WBC (Bld)58.4 %Fwiyuf24.0 - 75.0 %[facility] HemeAutoSS Neutrophils/Leukocytes Auto (Bld) [Pure # fraction]3.4 E9/LNormal2.0 - 7.5 E9/L [facility] HemeAutoSSHEMATOLOGYOrdered By: Tomy Medrano on 20-54-1032Dvfagjwfrsm distribution width (RBC) [Ratio]16.1 %High10.9 - 14.2 %[facility] HemeAutoSSHematocrit (Bld) [Volume fraction]26.7 %Low37.7 - 49.0 %[facility] HemeAutoSSHemoglobin (Bld) [Mass/Vol]8.3 g/dLLow13.5 - 17.5 gm/dLFTMC HemeAutoSSHypochromia Auto Ql (Bld) Present (08/17/22 4:13 AM)NormalFTMC HemeManSSMCH (RBC) [Entitic mass]23.3 pgLow27.0 - 34.0 pgFTMC HemeAutoSSMCHC (RBC) [Mass/Vol]31.1 g/dLLow31.4 - 36.0 gm/dLFTMC HemeAutoSSMCV (RBC) [Entitic vol]75.0 fLLow80.0 - 100.0 fLFTMC HemeAutoSS Microcytes Ql (Bld)Present (08/17/22 4:13 AM)NormalFTMC HemeManSSMorphology Errol (Bld) [Interp]See Morphology 1 (08/17/22 4:13 AM)NormalFTMC HemeManSSComment on above:Result Comment: Results are consistent with previous path review performed on 08-13-22. Reviewed by bab. Platelet mean volume (Bld) [Entitic vol]7.8 fLNormal6.4 - 10.8 fLFTMC HemeAutoSS Platelets (Bld) [#/Vol]353.0 E9/GGrjpwy641.0 - 500.0 E9/LFTMC HemeAutoSSRBC (Bld) [#/Vol]3.6 E12/LLow4.3 - 5.9 E12/LFTMC HemeAutoSSWBC corrected for nucl RBC Auto (Bld) [#/Vol]5.9 E9/LNormal4.0 - 11.0 E9/LFTMC HemeAutoSSCHEMISTRY Ordered By: SYSTEM SYSTEM on 26-84-0261Xtknjqxxar peak [Moles/Vol]33 microgram/jAWcvucr45 - 40 mcg/mLFTMC RemisolAnion gap [Moles/Vol]11 mmol/LNormal 6 - 16 mEq/LFTMC RemisolCalcium [Mass/Vol]8.2 mg/dLLow8.9 - 11.1 mg/dLFTMC RemisolChloride [Moles/Vol]105 mmol/MCmnsrt124 - 111 mmol/LFTMC RemisolCO2 [Moles/Vol]25 mmol/YLlnvlt87 - 31 mmol/LFTMC RemisolCreatinine [Mass/Vol]1.2 mg/dLNormal0.5 - 1.3 mg/dLFTMC RemisolFerritin [Mass/Vol]26 ng/aPKoqety47 - 336 ng/mLFTMC RemisolGFR/1.73 sq M.predicted among blacks MDRD (S/P/Bld) [Vol rate/Area]mL/min/1.73 h8Rywyzg>=59mL/min/1.73 m2FT[facility] Chem SGFR/1.73 sq M.predicted among non-blacks MDRD (S/P/Bld) [Vol rate/Area]mL/min/1.73 q6Myzfdp >=59mL/min/1.73 m2FT[facility] Chem SGlucose [Mass/Vol]131 mg/lHQuzcph08 - 199 mg/dLFTMC RemisolIron [Mass/Vol]25 ug/dLLow35 - 153 mcg/dLFTMC RemisolIron binding capacity [Mass/Vol]244 ug/mBJbm693 - 400 mcg/dLFTMC RemisolIron saturation [Mass fraction]10 %Low20 - 50 %[facility] RemisolPotassium [Moles/Vol]4.0 mmol/LNormal3.5 - 5.3 mmol/LFTMC RemisolSodium [Moles/Vol]137 mmol/GYyylex993 - 145 mmol/LFTMC RemisolTransferrin [Mass/Vol]175 mg/fXBcm101 - 370 mg/dLFTMC RemisolTSH Qn4.35 m[IU]/LNormal0.34 - 5.60 mcIU/mLFTMC RemisolUrea nitrogen [Mass/Vol]24 mg/dLHigh 5 - 21 mg/dLFTMC RemisolUrea nitrogen/Creatinine [Mass ratio]20 mg/qyKrbcyd10 - 20FT[facility] RemisolHEMATOLOGYOrdered By: SYSTEM SYSTEM on 27-11-9825Kihenhqlg/100 WBC (Bld)1.1 %Normal0.0 - 2.0 %[facility] HemeAutoSSBasophils/Leukocytes Auto (Bld) [Pure # fraction]0.1 E9/LNormal0.0 - 0.2 E9/LFTMC HemeAutoSSEosinophils/100 WBC (Bld) 6.9 %Normal0.0 - 8.0 %[facility] HemeAutoSSEosinophils/Leukocytes Auto (Bld) [Pure # fraction]0.4 E9/LNormal0.0 - 0.5 E9/LFTMC HemeAutoSSLymphocytes/100 WBC (Bld) 31.7 %Jsfkth95.0 - 50.0 %[facility] HemeAutoSSLymphocytes/Leukocytes Auto (Bld) [Pure # fraction]1.9 E9/LNormal1.0 - 4.0 E9/LFTMC HemeAutoSSMonocytes/100 WBC (Bld)8.4 %Normal4.0 - 14.0 %[facility] HemeAutoSSMonocytes/Leukocytes Auto (Bld) [Pure # fraction]0.5 E9/LNormal0.2 - 1.0 E9/LFTMC HemeAutoSSNeutrophils/100 WBC (Bld) 51.9 %Bqqhdw79.0 - 75.0 %[facility] HemeAutoSSNeutrophils/Leukocytes Auto (Bld) [Pure # fraction]3.0 E9/LNormal2.0 - 7.5 E9/LFTMC HemeAutoSSHEMATOLOGYOrdered By: Franci Lane on 45-09-9483Wfvmgascvsb distribution width (RBC) [Ratio]16.0 % High10.9 - 14.2 %[facility] HemeAutoSSHematocrit (Bld) [Volume fraction]23.4 %Low37.7 - 49.0 %[facility] HemeAutoSSHemoglobin (Bld) [Mass/Vol]7.4 g/dLLow13.5 - 17.5 gm/dL [facility] HemeAutoSSHypochromia Auto Ql (Bld)Present (08/16/22 6:16 AM)NormalFTMC HemeManSSMCH (RBC) [Entitic mass]23.6 pgLow27.0 - 34.0 pgFTMC HemeAutoSSMCHC (RBC) [Mass/Vol]31.6 g/lKLzopwc94.4 - 36.0 gm/dLFTMC HemeAutoSSMCV (RBC) [Entitic vol]74.6 fLLow80.0 - 100.0 fLFTMC HemeAutoSS Microcytes Ql (Bld)Present (08/16/22 6:16 AM)NormalFTMC HemeManSSMorphology Errol (Bld) [Interp]See Morphology (08/16/22 6:16 AM)NormalFT HemeManSSPlatelet mean volume (Bld) [Entitic vol]8.2 fLNormal6.4 - 10.8 fLFT HemeAutoSSPlatelets (Bld) [#/Vol]291.0 E9/QUrnhgr985.0 - 500.0 E9/LFC HemeAutoSSRBC (Bld) [#/Vol]3.1 E12/LLow4.3 - 5.9 E12/LFC HemeAutoSSWBC corrected for nucl RBC Auto (Bld) [#/Vol]5.9 E9/LNormal4.0 - 11.0 E9/LFTMC HemeAutoSSCHEMISTRYOrdered By: SYSTEM SYSTEM on 39-32-2648Tsrptdqqhf trough [Moles/Vol]18 microgram/hNKsvwzd63 - 20 mcg/mLFTMC Xcjbima19- hydroxyvitamin D3 [Mass/Vol]12.8 ng/mLLow30.0 - 100.0 ng/mLFTMC RemisolMagnesium [Mass/Vol]2.1 mg/dLNormal1.3 - 2.4 mg/dLFTMC RemisolPhosphate [Mass/Vol]3.1 mg/dLNormal1.9 - 4.6 mg/dLFTMC RemisolCHEMISTRYOrdered By: Isaac Swenson on 70-77-7411Rmemwczwhm peak [Moles/Vol]40 microgram/xMEigxuu98 - 40 mcg/mLFTMC RemisolCEFEPIME:SUSC:PT:ISOLATE:ORDQN:MICOrdered By: Margret Ambriz on 08-14-2022 Cefepime ERYN [Susc]Escherichia coli ESBL isolated from broth media only. Result called to Dr. Harris by [facility] and results read back for confirmation on 08/18/2022 09:28:42[facility] AvonCefepime ERYN [Susc]Ordered By: Margret Ambriz on 14-83-0626Dgftolkyvfk coli ESBLEscherichia coli ESBLSelect Medical [facility], AvonGS1+ White Blood Cells Occasional Gram Positive CocciFOhioHealth Doctors HospitalBLOOD BANKOrdered By: Piedad Miranda on 13-89-7541FNK/Rh Retype InterpPositiveInvalid Interpretation CodeMEM[facility] BB SubsectionABO/Rh InterpPositiveInvalid Interpretation CodeMEM[facility] [place] BB SubsectionABSC Gel InterpNegative (08/13/22 1:25 PM)NormalMEMORIAL [facility] [place] BB SubsectionCHEMISTRYOrdered By: SYSTEM SYSTEM on 46-12-6020Jeuxltp [Mass/Vol]0.9 mmol/LNormal0.5 - 2.2 mmol/LFTMC RemisolLactate [Mass/Vol]1.0 mmol/LNormal0.5 - 2.2 mmol/LFTMC RemisolTroponin I.cardiac [Mass/Vol]2.50 pg/mLLow15.90 - 38.40 pg/mLMEMORIAL HOS[facility] [place] RemisolCOAGULATIONOrdered By: Piedad Linda on 58-48-7000uGCB Coag (PPP) [Time]25.0 sLow25.1 - 36.5 second(s)[facility] Auto CoagINR Coag (PPP) [Relative time]1.1 {INR}Invalid Interpretation CodeMEM[facility]IAL [facility] [place] Auto CoagPT Coag (PPP) [Time]12.2 sNormal9.4 - 12.5 second(s)[facility] Auto CoagHEMATOLOGYOrdered By: Terrence Gunderson on 90-98-1727Nlfa ReviewAnemia with mild polychromasia.D64.9CPT 94089Wcfydgq Interpretation Code [facility] HemeManSSNo Panel InformationOrdered By: ANGPROCESSSERVER MICROBIOLOGY on 96-58-9151Dhzni Culture CharcoalNo growth at 5 days. Final to follow at 7 days. [facility], AvonBlood Culture CharcoalNo growth at 5 days. Final to follow at 7 days.[facility], AvonURINALYSISOrdered By: Piedad Linda on 04-15-0252Cgopyuvsj Ql (U)Negative (08/13/22 10:23 AM)NormalNegativeMEM[facility] UA Auto SSClarity (U)Clear (08/13/22 10:23 AM)NormalClearFWW [facility] UA Auto SSColor (U)Yellow (08/13/22 10:23 AM)NormalYellowMEMORIAL HOSPITAL [facility] [place] UA Auto SSEpithelial cells.squamous LM.HPF (Urine sed) [#/Area]0-2 /HPFNormal0-2/HPFMEMORIAL HOSPITAL [facility] [place] UA Auto SSGlucose Test strip (U) [Mass/Vol]3+ *ABN* (08/13/22 10:23 AM)Invalid Interpretation CodeNegativeFT UA Auto SSHemoglobin Ql (U)Trace *ABN* (08/13/22 10:23 AM)Invalid Interpretation CodeNegativeFTMC UA Auto SSKetones (U) [Mass/Vol]Negative (08/13/22 10:23 AM)NormalNegativeMEMORIAL [facility] UA Auto SSLithium.plasma/Indios.RBC (Bld) [Mass ratio]0-3 /HPFNormal0-3/HPFFTMC UA Auto SSNitrite Ql (U)Negative (08/13/22 10:23 AM)NormalNegativeMEM[facility] [place] UA Auto SSpH (U)6.5 *NA* (08/13/22 10:23 AM)Invalid Interpretation Code5.0 - 9.0[facility] UA Auto SSProtein (U) [Mass/Vol]Trace *ABN* (08/13/22 10:23 AM)Invalid Interpretation CodeNegativeMEMORIAL [facility] [place] UA Auto SSSpecific gravity (U) [Rel density]1.010 *NA* (08/13/22 10:23 AM)Invalid Interpretation Code1.005 - 1.030[facility] UA Auto SSUA Spec DescClean Catch (08/13/22 10:23 AM)NormalMEMORIAL [facility] [place] UA Auto SSUrobilinogen Qn (U)0.3926211 {Tu'U}/dLNormal0.0 - 1.0 EU/dLMEMORIAL HOSP[facility] [place] UA Auto SSWBC Auto Ql (U)Negative (08/13/22 10:23 AM)NormalNegativeMEM[facility]IAL [facility] UA Auto SSWBC LM.HPF (Urine sed) [#/Area]0-5 /HPFNormal0-5/HPFFT UA Auto SSCreatinine [Mass/volume] in Serum or Plasma Ordered By: Ramiro Epperson on 72-43-0587Czckbpkagd [Mass/Vol]1.18 mg/dL0.70-1.30 [facility]Labor[facility] - [facility] and Chemistry - challengeOrdered By: Ramiro Epperson on 98-55-0825HBX/1.73 sq M.predicted MDRD (S/P/Bld) [Vol rate/Area]mL/min/{1.73_m2}[facility] DaytonNo Panel InformationOrdered By: Ramiro Epperson on 36-54-2083Qdsjuwnh Creatinine Clearance ([facility] Centererum or plasma trough vancomycin levelOrdered By: Ramiro Epperson on 63-08-6144Nipnxbzqiy trough [Mass/Vol] 12.4 ug/mL10.0-20.0[facility] DaytonComment on above:Last dose: -Creatinine [Mass/volume] in Serum or PlasmaOrdered By: Sanots Epperson on 09-88-3483Sibjdubwqf [Mass/Vol]1.05 mg/dL0.70-1.30[facility] DaytonLaboratory - Chemistry and Chemistry - challengeOrdered By: Santos Epperson on 73-08-5652JZR/1.73 sq M.predicted MDRD (S/P/Bld) [Vol rate/Area] mL/min/{1.73_m2}[facility]No Panel InformationOrdered By: Santos Epperson on 87-95-7582Dcevoemf Creatinine Clearance ([facility] Centererum or plasma trough vancomycin levelOrdered By: Santos Epperson on 72-90-9673Arkmiacjyr trough [Mass/Vol]9.8 ug/mL10.0-20.0[facility] DaytonComment on above:Last dose: -Creatinine [Mass/volume] in Serum or PlasmaOrdered By: Ramiro Epperson on 54-13-6501Lhbpcvmfiq [Mass/Vol]1.01 mg/dL0.70-1.30[facility] DaytonLaboratory - Chemistry and Chemistry - challengeOrdered By: Ramiro Epperson on 13-67-7258DAI/1.73 sq M.predicted MDRD (S/P/Bld) [Vol rate/Area]mL/min/{1.73_m2}[facility] No Panel InformationOrdered By: Ramiro Epperson on 03-67-6687Jguxlljv Creatinine Clearance ([facility] Centererum or plasma trough vancomycin levelOrdered By: Ramiro Epperson on 62-08-7155Svpdhlkexv trough [Mass/Vol] 20.9 ug/mL10.0-20.0[facility] DaytonComment on above:Last dose: -Creatinine [Mass/volume] in Serum or PlasmaOrdered By: Ramiro Epperson on 07-23-2022 Creatinine [Mass/Vol]1.10 mg/dL0.70-1.30[facility] - Chemistry and Chemistry - challengeOrdered By: Ramiro Epperson on 32-30-6799WLZ/1.73 sq M.predicted MDRD (S/P/Bld) [Vol rate/Area]mL/min/{1.73_m2} [facility]No Panel InformationOrdered By: Ramiro Epperson on 31-12-5486Ylwxprls Creatinine Clearance ([facility]N/[facility] Centererum or plasma trough vancomycin levelOrdered By: Ramiro Epperson on 59-07-4226Fdptolgfoa trough [Mass/Vol]22.9 ug/mL10.0-20.0[facility] DaytonComment on above:Last dose: -Creatinine [Mass/volume] in Serum or PlasmaOrdered By: Ramiro Epperson on 19-22-2083Vhcjliewql [Mass/Vol]1.07 mg/dL 0.70-1.30[facility] DaytonLaboratory - Chemistry and Chemistry - challengeOrdered By: Ramiro Epperson on 51-74-2087EIU/1.73 sq M.predicted MDRD (S/P/Bld) [Vol rate/Area]mL/min/{1.73_m2}[facility]No Panel InformationOrdered By: Ramiro Epperson on 16-89-1885Kmgnlpjg Creatinine Clearance (ChemN/[facility] Centererum or plasma trough vancomycin levelOrdered By: Ramiro Epperson on 88-77-8453Vevqyatkpk trough [Mass/Vol] 15.1 ug/mL10.0-20.0[facility] DaytonComment on above:Last dose: -Serum or plasma trough vancomycin levelOrdered By: Ramiro Epperson on 07-14-2022 Vancomycin trough [Mass/Vol]17.4 ug/mL10.0-20.0[facility] Comment on above:Last dose: -Creatinine and Glomerular filtration rate.predicted panel (S/P/Bld)Ordered By: Ronaldo Arcos on 04-70-9124Kzdtasfhjs [Mass/Vol]0.94 mg/dL0.64-1.27[facility] DaytonEstimated glomerular filtration rate (GFR) non- AmericanOrdered By: Ronaldo Arcos on 71-94-2369JXQ/1.73 sq M.predicted among non-blacks MDRD (S/P/Bld) [Vol rate/Area]> 60 mL/Min [facility]No Panel InformationOrdered By: Ronaldo Arcos on 57-27-8603Jljvoshsa GFR ()> 60 mL/MinKindred Hospital DaytonComment on above:GFR estimated reference range: According to KDOQI guidelines, <60 ml/min/1.73m2 is sufficient todiagnose a patient with chronic kidney disease.Pharmacy Creatinine Clearance (ChemN/[facility]FCinc[facility] Hospitalerum or plasma trough vancomycin levelOrdered By: Ronaldo Arcos on 43-89-6956Vfhvopypfm trough [Mass/Vol]16.7 ug/mL10.0-20.0[facility] DaytonComment on above:Last dose: -Creatinine and Glomerular filtration rate.predicted panel (S/P/Bld)Ordered By: Santos Epperson on 91-93-2492Zrszxgiohl [Mass/Vol]0.92 mg/dL0.64-1.27[facility] DaytonEstimated glomerular filtration rate (GFR) non- AmericanOrdered By: Santos Epperson on 17-97-4620SQV/1.73 sq M.predicted among non-blacks MDRD (S/P/Bld) [Vol rate/Area]> 60 mL/MinKindred Hospital DaytonNo Panel Information Ordered By: Santos Epperson on 61-81-4565Mwpkpyvuj GFR ()> 60 mL/MinKindred Hospital DaytonComment on above:GFR estimated reference range: According to KDOQI guidelines, <60 ml/min/1.73m2 is sufficient todiagnose a patient with chronic kidney disease.Pharmacy Creatinine Clearance (ChemN/[facility] Companyerum or plasma trough vancomycin levelOrdered By: Santos Epperson on 28-41-1573Yvzkwwntmy trough [Mass/Vol]16.7 ug/mL10.0-20.0 [facility] DaytonComment on above:Last dose: -Serum or plasma trough vancomycin levelOrdered By: Santos Argelia on 72-47-8105Lkdeubpbmd trough [Mass/Vol]17.8 ug/mL10.0-20.0[facility] DaytonComment on above: Last dose: -Serum or plasma trough vancomycin levelOrdered By: Ramiro Sabaemily on 76-54-1262Lpkcidiclt trough [Mass/Vol]17.3 ug/mL10.0-20.0[facility] DaytonComment on above:Last dose: -CHEMISTRYOrdered By: SYSTEM SYSTEM on 48-46-8740Cszvvvl [Mass/Vol]3.1 g/dLLow3.3 - 5.0 gm/dLFTMC Remisol Albumin/Globulin [Mass ratio]0.7 {ratio}Low1.1 - 2.2[facility] RemisolALP [Catalytic activity/Vol]53 [iU]/kPygdia52 - 98 Int._Unit/LFTMC RemisolALT No additional P-5'-P [Catalytic activity/Vol]14 [iU]/dNormal6 - 46 Int._Unit/LFTMC Remisol Anion gap [Moles/Vol]14 mmol/LNormal6 - 16 mEq/LFT[facility] RemisolAST [Catalytic activity/Vol]16 [iU]/dNormal5 - 43 Int._Unit/LFTMC RemisolBilirubin [Mass/Vol] 0.6 mg/dLNormal0.0 - 1.1 mg/dLFTMC RemisolCalcium [Mass/Vol]9.0 mg/dLNormal8.9 - 11.1 mg/dLFTMC RemisolChloride [Moles/Vol]94 mmol/IEra730 - 111 mmol/LFTMC RemisolCO2 [Moles/Vol]27 mmol/IUldunp22 - 31 mmol/LFTMC RemisolCreatinine [Mass/Vol]1.0 mg/dLNormal0.5 - 1.3 mg/dLFTMC RemisolGFR/1.73 sq M.predicted among blacks MDRD (S/P/Bld) [Vol rate/Area]mL/min/1.73 r7Mcrlwd>=59mL/min/1.73 m2[facility] Chem SGFR/1.73 sq M.predicted among non-blacks MDRD (S/P/Bld) [Vol rate/Area]mL/min/1.73 v1Huvnfn>=59mL/min/1.73 m2[facility] Chem SGlobulin (S) [Mass/Vol]4.3 g/dLHigh1.4 - 4.0 gm/dLFTMC RemisolGlucose [Mass/Vol]203 mg/dLHigh 55 - 199 mg/dLFTMC RemisolPotassium [Moles/Vol]4.3 mmol/LNormal3.5 - 5.3 mmol/L [facility] RemisolProtein [Mass/Vol]7.4 g/dLNormal6.0 - 7.8 gm/dLFTMC RemisolSodium [Moles/Vol]131 mmol/IIhr264 - 145 mmol/LFTMC RemisolUrea nitrogen [Mass/Vol]30 mg/dLHigh5 - 21 mg/dLFTMC RemisolUrea nitrogen/Creatinine [Mass ratio]30 mg/mg High10 - 20[facility] RemisolCOAGULATIONOrdered By: Carly Bray on 60-40-5838aHQV Coag (PPP) [Time]42.7 sHigh25.1 - 36.5 second(s)[facility] Auto CoagINR Coag (PPP) [Relative time]1.1 {INR}Invalid Interpretation CodeFTMC Auto CoagPT Coag (PPP) [Time]12.3 sNormal9.4 - 12.5 second(s)[facility] Auto CoagHEMATOLOGYOrdered By: SYSTEM SYSTEM on 31-52-1770Ggccfghhr/100 WBC (Bld)0.9 %Normal0.0 - 2.0 %[facility] HemeAutoSSBasophils/Leukocytes Auto (Bld) [Pure # fraction]0.1 E9/LNormal0.0 - 0.2 E9/LFTMC HemeAutoSSEosinophils/100 WBC (Bld)2.4 %Normal0.0 - 8.0 %[facility] HemeAutoSSEosinophils/Leukocytes Auto (Bld) [Pure # fraction]0.2 E9/LNormal0.0 - 0.5 E9/LFTMC HemeAutoSSLymphocytes/100 WBC (Bld)24.1 %Jolunf89.0 - 50.0 %[facility] HemeAutoSSLymphocytes/Leukocytes Auto (Bld) [Pure # fraction]1.6 E9/LNormal1.0 - 4.0 E9/LFT[facility] HemeAutoSSMonocytes/100 WBC (Bld)8.3 %Normal4.0 - 14.0 %[facility] HemeAutoSSMonocytes/Leukocytes Auto (Bld) [Pure # fraction]0.6 E9/LNormal0.2 - 1.0 E9/LFTMC HemeAutoSSNeutrophils/100 WBC (Bld)64.3 %Afdusb40.0 - 75.0 %[facility] HemeAutoSSNeutrophils/Leukocytes Auto (Bld) [Pure # fraction]4.4 E9/LNormal2.0 - 7.5 E9/LFTMC HemeAutoSSHEMATOLOGYOrdered By: Isaac Swenson on 07-01-2022 Erythrocyte distribution width (RBC) [Ratio]16.3 %High10.9 - 14.2 %[facility] HemeAutoSSHematocrit (Bld) [Volume fraction]30.4 %Low37.7 - 49.0 %[facility] HemeAutoSSHemoglobin (Bld) [Mass/Vol]10.0 g/dLLow13.5 - 17.5 gm/dLFTMC HemeAutoSSMCH (RBC) [Entitic mass]25.7 pgLow27.0 - 34.0 pgFTMC HemeAutoSSMCHC (RBC) [Mass/Vol]32.8 g/uPHghlws24.4 - 36.0 gm/dLFTMC HemeAutoSSMCV (RBC) [Entitic vol]78.4 fLLow80.0 - 100.0 fLFTMC HemeAutoSSPlatelet mean volume (Bld) [Entitic vol]8.4 fLNormal6.4 - 10.8 fLFTMC HemeAutoSSPlatelets (Bld) [#/Vol] 316.0 E9/UXzwefi436.0 - 500.0 E9/LFTMC HemeAutoSSRBC (Bld) [#/Vol]3.9 E12/LLow 4.3 - 5.9 E12/LFTMC HemeAutoSSWBC corrected for nucl RBC Auto (Bld) [#/Vol]6.8 E9/LNormal4.0 - 11.0 E9/LFTMC HemeAutoSSSerum or plasma trough vancomycin level Ordered By: Ramiro Sabaemily on 19-08-8583Fjkcffbrcy trough [Mass/Vol]14.6 ug/mL 10.0-20.0[facility] DaytonComment on above:Last dose: -Serum or plasma trough vancomycin levelOrdered By: Ramiro Sabaemily on 21-65-4320Kpalekyhxn trough [Mass/Vol]13.9 ug/mL10.0-20.0[facility] DaytonComment on above:Last dose: -CHEMISTRYOrdered By: Lab Marianne on 69-25-1119Hrqqwlf [Mass/Vol]273 mg/mNOcwe38 - 99 mg/dLFT POC SubsectionComment on above:Result Comment: Notified RN/MDPOC Device [id number] Interpretation CodeFTMC POC SubsectionPOC User [id number] Interpretation CodeFTMC POC Subsection POC UsernamEMERITA RooneyInvalid Interpretation CodeFTMC POC SubsectionGlucose [Mass/Vol]179 mg/xHOfae76 - 99 mg/dLFTMC POC SubsectionComment on above:Result Comment: Notified RN/MDPOC Device [id number] Interpretation CodeFTMC POC SubsectionPOC User [id number] Interpretation CodeFTMC POC Subsection POC UsernamePMARY BARRERAInvalid Interpretation CodeFTMC POC Subsection CHEMISTRYOrdered By: SYSTEM SYSTEM on 53-41-3778Ikqer gap [Moles/Vol]11 mmol/L Normal6 - 16 mEq/LFT[facility] RemisolCalcium [Mass/Vol]8.7 mg/dLLow8.9 - 11.1 mg/dLFTMC RemisolChloride [Moles/Vol]98 mmol/FUxy409 - 111 mmol/LFT[facility] RemisolCO2 [Moles/Vol]27 mmol/MWnsssb77 - 31 mmol/LFTMC RemisolCreatinine [Mass/Vol]1.1 mg/dLNormal0.5 - 1.3 mg/dLFT[facility] RemisolGFR/1.73 sq M.predicted among blacks MDRD (S/P/Bld) [Vol rate/Area]mL/min/1.73 o0Wzpejc>=59mL/min/1.73 m2FT Chem S GFR/1.73 sq M.predicted among non-blacks MDRD (S/P/Bld) [Vol rate/Area] mL/min/1.73 w9Rtxrch>=59mL/min/1.73 m2FT Chem SGlucose [Mass/Vol]213 mg/dLHigh 55 - 199 mg/dLFTMC RemisolMagnesium [Mass/Vol]2.0 mg/dLNormal1.3 - 2.4 mg/dLFT[facility] RemisolPotassium [Moles/Vol]3.9 mmol/LNormal3.5 - 5.3 mmol/LFTMC RemisolSodium [Moles/Vol]132 mmol/GDvl440 - 145 mmol/LFTMC RemisolUrea nitrogen [Mass/Vol]28 mg/dLHigh5 - 21 mg/dLFTMC RemisolUrea nitrogen/Creatinine [Mass ratio]26 mg/mg High10 - 20[facility] RemisolCHEMISTRYOrdered By: Lab ROPUser on 81-11-4539Jrnftgr [Mass/Vol]326 mg/sLDwbt03 - 99 mg/dLFTMC POC SubsectionComment on above:Result Comment: Notified RN/MDPOC Device [id number] Interpretation CodeFTMC POC SubsectionPOC User [id number] Interpretation CodeFTMC POC Subsection POC UsernamZaina Villasenor Interpretation CodeFTMC POC SubsectionCHEMISTRY Ordered By: SYSTEM SYSTEM on 21-58-9785Actmavkqaz trough [Moles/Vol]16 microgram/mFYqanco79 - 20 mcg/mLFTMC RemisolAnion gap [Moles/Vol]10 mmol/LNormal 6 - 16 mEq/LFT[facility] RemisolCalcium [Mass/Vol]8.6 mg/dLLow8.9 - 11.1 mg/dLFTMC RemisolChloride [Moles/Vol]99 mmol/AOty120 - 111 mmol/LFT[facility] RemisolCO2 [Moles/Vol]27 mmol/GGehioi70 - 31 mmol/LFTMC RemisolCreatinine [Mass/Vol]1.0 mg/dLNormal0.5 - 1.3 mg/dLFTMC RemisolGFR/1.73 sq M.predicted among blacks MDRD (S/P/Bld) [Vol rate/Area]mL/min/1.73 i2Hjdhgi>=59mL/min/1.73 m2[facility] Chem S GFR/1.73 sq M.predicted among non-blacks MDRD (S/P/Bld) [Vol rate/Area] mL/min/1.73 n2Sapkoa>=59mL/min/1.73 m2[facility] Chem SGlucose [Mass/Vol]150 mg/dL Unshpm81 - 199 mg/dLFTMC RemisolPotassium [Moles/Vol]3.6 mmol/LNormal3.5 - 5.3 mmol/LFT[facility] RemisolSodium [Moles/Vol]132 mmol/ZEhb550 - 145 mmol/LFT[facility] Remisol Urea nitrogen [Mass/Vol]23 mg/dLHigh5 - 21 mg/dLFTMC RemisolUrea nitrogen/Creatinine [Mass ratio]23 mg/flEjff52 - 20[facility] RemisolHEMATOLOGYOrdered By: SYSTEM SYSTEM on 86-04-0879Fxbdjrxfo/100 WBC (Bld)0.6 %Normal0.0 - 2.0 %[facility] HemeAutoSSBasophils/Leukocytes Auto (Bld) [Pure # fraction]0.1 E9/LNormal0.0 - 0.2 E9/LFTMC HemeAutoSSEosinophils/100 WBC (Bld)4.1 %Normal0.0 - 8.0 %[facility] HemeAutoSSEosinophils/Leukocytes Auto (Bld) [Pure # fraction]0.4 E9/LNormal0.0 - 0.5 E9/LFTMC HemeAutoSSLymphocytes/100 WBC (Bld)24.3 %Gmfnui44.0 - 50.0 %[facility] HemeAutoSSLymphocytes/Leukocytes Auto (Bld) [Pure # fraction]2.3 E9/LNormal1.0 - 4.0 E9/LFT[facility] HemeAutoSSMonocytes/100 WBC (Bld)10.6 %Normal4.0 - 14.0 %[facility] HemeAutoSSMonocytes/Leukocytes Auto (Bld) [Pure # fraction]1.0 E9/LNormal0.2 - 1.0 E9/LFTMC HemeAutoSSNeutrophils/100 WBC (Bld)60.4 %Titrzc84.0 - 75.0 %[facility] HemeAutoSSNeutrophils/Leukocytes Auto (Bld) [Pure # fraction]5.8 E9/LNormal2.0 - 7.5 E9/LFTMC HemeAutoSSHEMATOLOGYOrdered By: Franci Lane on 06-22-2022 Erythrocyte distribution width (RBC) [Ratio]16.5 %High10.9 - 14.2 %[facility] HemeAutoSSHematocrit (Bld) [Volume fraction]28.8 %Low37.7 - 49.0 %[facility] HemeAutoSSHemoglobin (Bld) [Mass/Vol]9.5 g/dLLow13.5 - 17.5 gm/dLFTMC HemeAutoSS MCH (RBC) [Entitic mass]26.5 pgLow27.0 - 34.0 pgFTMC HemeAutoSSMCHC (RBC) [Mass/Vol]33.1 g/iXJgmwam92.4 - 36.0 gm/dLFTMC HemeAutoSSMCV (RBC) [Entitic vol] 80.0 yIBenciv11.0 - 100.0 fLFTMC HemeAutoSSPlatelet mean volume (Bld) [Entitic vol]9.5 fLNormal6.4 - 10.8 fLFTMC HemeAutoSSPlatelets (Bld) [#/Vol]253.0 E9/L Iejwku747.0 - 500.0 E9/LFTMC HemeAutoSSRBC (Bld) [#/Vol]3.6 E12/LLow4.3 - 5.9 E12/LFTMC HemeAutoSSWBC corrected for nucl RBC Auto (Bld) [#/Vol]9.5 E9/LNormal 4.0 - 11.0 E9/LFT[facility] HemeAutoSSCHEMISTRYOrdered By: SYSTEM SYSTEM on 06-21-2022 Vancomycin peak [Moles/Vol]39 microgram/tMUlusya02 - 40 mcg/mLFTMC RemisolAnion gap [Moles/Vol]11 mmol/LNormal6 - 16 mEq/LFT[facility] RemisolCalcium [Mass/Vol]8.5 mg/dLLow8.9 - 11.1 mg/dLFTMC RemisolChloride [Moles/Vol]101 mmol/SMdvvas950 - 111 mmol/LFT[facility] RemisolCO2 [Moles/Vol]28 mmol/WLmgqpw46 - 31 mmol/LFT[facility] Remisol Creatinine [Mass/Vol]1.1 mg/dLNormal0.5 - 1.3 mg/dLFTMC RemisolGFR/1.73 sq M.predicted among blacks MDRD (S/P/Bld) [Vol rate/Area]mL/min/1.73 e1Exfcwa >=59mL/min/1.73 m2FT Chem SGFR/1.73 sq M.predicted among non-blacks MDRD (S/P/Bld) [Vol rate/Area]mL/min/1.73 m1Hxmzod>=59mL/min/1.73 m2FT Chem S Glucose [Mass/Vol]233 mg/eSTlns25 - 199 mg/dLFT RemisolPotassium [Moles/Vol] 3.8 mmol/LNormal3.5 - 5.3 mmol/LFT[facility] RemisolSodium [Moles/Vol]136 mmol/LNormal 135 - 145 mmol/LFT[facility] RemisolUrea nitrogen [Mass/Vol]24 mg/dLHigh5 - 21 mg/dLFTMC RemisolUrea nitrogen/Creatinine [Mass ratio]22 mg/uhUuur55 - 20[facility] Remisol HEMATOLOGYOrdered By: SYSTEM SYSTEM on 69-53-0608Iuyylfgkb/100 WBC (Bld)0.7 % Normal0.0 - 2.0 %[facility] HemeAutoSSBasophils/Leukocytes Auto (Bld) [Pure # fraction]0.1 E9/LNormal0.0 - 0.2 E9/LFTMC HemeAutoSSEosinophils/100 WBC (Bld)5.5 %Normal0.0 - 8.0 %[facility] HemeAutoSSEosinophils/Leukocytes Auto (Bld) [Pure # fraction]0.4 E9/LNormal0.0 - 0.5 E9/LFTMC HemeAutoSSLymphocytes/100 WBC (Bld) 22.0 %Wwrjbb27.0 - 50.0 %[facility] HemeAutoSSLymphocytes/Leukocytes Auto (Bld) [Pure # fraction]1.7 E9/LNormal1.0 - 4.0 E9/LFT[facility] HemeAutoSSMonocytes/100 WBC (Bld)9.8 %Normal4.0 - 14.0 %[facility] HemeAutoSSMonocytes/Leukocytes Auto (Bld) [Pure # fraction]0.8 E9/LNormal0.2 - 1.0 E9/LFT[facility] HemeAutoSSNeutrophils/100 WBC (Bld) 62.0 %Ehjoqe12.0 - 75.0 %[facility] HemeAutoSSNeutrophils/Leukocytes Auto (Bld) [Pure # fraction]4.8 E9/LNormal2.0 - 7.5 E9/LFT[facility] HemeAutoSSHEMATOLOGYOrdered By: Franci Lane on 88-86-6623Dowshouzzjd distribution width (RBC) [Ratio]16.3 % High10.9 - 14.2 %[facility] HemeAutoSSHematocrit (Bld) [Volume fraction]29.4 %Low37.7 - 49.0 %[facility] HemeAutoSSHemoglobin (Bld) [Mass/Vol]9.6 g/dLLow13.5 - 17.5 gm/dL [facility] HemeAutoSSMCH (RBC) [Entitic mass]26.0 pgLow27.0 - 34.0 pgFTMC HemeAutoSS MCHC (RBC) [Mass/Vol]32.5 g/sZOvmdad63.4 - 36.0 gm/dLFTMC HemeAutoSSMCV (RBC) [Entitic vol]79.9 fLLow80.0 - 100.0 fLFTMC HemeAutoSSPlatelet mean volume (Bld) [Entitic vol]9.1 fLNormal6.4 - 10.8 fLFTMC HemeAutoSSPlatelets (Bld) [#/Vol] 239.0 E9/IRwfkoe500.0 - 500.0 E9/LFT[facility] HemeAutoSSRBC (Bld) [#/Vol]3.7 E12/LLow 4.3 - 5.9 E12/LFT[facility] HemeAutoSSWBC corrected for nucl RBC Auto (Bld) [#/Vol]7.7 E9/LNormal4.0 - 11.0 E9/LFT[facility] HemeAutoSSCHEMISTRYOrdered By: SYSTEM SYSTEM on 49-04-2263Bkbcsiswvk trough [Moles/Vol]19 microgram/xNCzvres48 - 20 mcg/mLFTMC RemisolMagnesium [Mass/Vol]1.9 mg/dLNormal1.3 - 2.4 mg/dLFTMC RemisolPhosphate [Mass/Vol]4.1 mg/dLNormal1.9 - 4.6 mg/dLFTMC RemisolVancomycin peak [Moles/Vol] 39 microgram/uPVzsjfy34 - 40 mcg/mLFTMC RemisolHEMATOLOGYOrdered By: Franci Lane on 46-99-5238Sritnynmok (Bld) [Volume fraction]33.3 %Low37.7 - 49.0 % [facility] HemeAutoSSHemoglobin (Bld) [Mass/Vol]10.6 g/dLLow13.5 - 17.5 gm/dLFTMC HemeAutoSSErythrocyte distribution width (RBC) [Ratio]16.5 %High10.9 - 14.2 % [facility] HemeAutoSSMCH (RBC) [Entitic mass]25.6 pgLow27.0 - 34.0 pgFTMC HemeAutoSS MCHC (RBC) [Mass/Vol]31.5 g/lLAsplgd26.4 - 36.0 gm/dLFTMC HemeAutoSSMCV (RBC) [Entitic vol]81.4 hCQqnbfd98.0 - 100.0 fLFTMC HemeAutoSSPlatelet mean volume (Bld) [Entitic vol]8.8 fLNormal6.4 - 10.8 fLFTMC HemeAutoSSPlatelets (Bld) [#/Vol]216.0 E9/WLvjlym553.0 - 500.0 E9/LFT[facility] HemeAutoSSRBC (Bld) [#/Vol]3.9 E12/LLow4.3 - 5.9 E12/LFT[facility] HemeAutoSSWBC corrected for nucl RBC Auto (Bld) [#/Vol]6.7 E9/LNormal4.0 - 11.0 E9/LFT[facility] HemeAutoSSHEMATOLOGYOrdered By: SYSTEM SYSTEM on 35-98-4832Zhugrzebi/100 WBC (Bld)0.6 %Normal0.0 - 2.0 %[facility] HemeAutoSS Basophils/Leukocytes Auto (Bld) [Pure # fraction]0.0 E9/LNormal0.0 - 0.2 E9/L [facility] HemeAutoSSEosinophils/100 WBC (Bld)6.7 %Normal0.0 - 8.0 %[facility] HemeAutoSS Eosinophils/Leukocytes Auto (Bld) [Pure # fraction]0.4 E9/LNormal0.0 - 0.5 E9/L [facility] HemeAutoSSLymphocytes/100 WBC (Bld)29.2 %Jjvyfm54.0 - 50.0 %[facility] HemeAutoSS Lymphocytes/Leukocytes Auto (Bld) [Pure # fraction]2.0 E9/LNormal1.0 - 4.0 E9/L [facility] HemeAutoSSMonocytes/100 WBC (Bld)9.4 %Normal4.0 - 14.0 %[facility] HemeAutoSS Monocytes/Leukocytes Auto (Bld) [Pure # fraction]0.6 E9/LNormal0.2 - 1.0 E9/L [facility] HemeAutoSSNeutrophils/100 WBC (Bld)54.1 %Ijryda53.0 - 75.0 %[facility] HemeAutoSS Neutrophils/Leukocytes Auto (Bld) [Pure # fraction]3.6 E9/LNormal2.0 - 7.5 E9/L [facility] HemeAutoSSLINEZOLID:SUSC:PT:ISOLATE:ORDQN:MICOrdered By: Margret Ambriz on 51-87-9794Qxfotkypo ERYN [Susc]Scant growth of Staphylococcus simulans Scant growth of Gram Positive Rods resembling diphtheroidsSelect Medical Cleveland Clinic Rehabilitation Hospital, AvonLinezolid ERYN [Susc]Ordered By: Margret Ambriz on 52-39-7654AUBhfg White Blood Cells No organisms seen.[facility] Centertaphylococcus simulans Staphylococcus simulansSelect Medical [facility], AvonCHEMISTRYOrdered By: SYSTEM SYSTEM on 51-40-1047Xuoqnftsj [Mass/Vol]2.3 mg/dLNormal1.3 - 2.4 mg/dLFTMC RemisolCOAGULATIONOrdered By: Tomy Medrano on 53-39-0986nMYZ Coag (PPP) [Time]34.2 wWgfxxr09.1 - 36.5 second(s)[facility] Auto CoagCHEMISTRYOrdered By: SYSTEM SYSTEM on 90-20-2882Ivsdkvg [Mass/Vol]1.3 mmol/LNormal0.5 - 2.2 mmol/LFTMC RemisolAlbumin [Mass/Vol]3.1 g/dLLow3.3 - 5.0 gm/dLFTMC RemisolAlbumin/Globulin [Mass ratio]0.7 {ratio}Low1.1 - 2.2[facility] RemisolALP [Catalytic activity/Vol]59 [iU]/nXxntav45 - 98 Int._Unit/LFTMC RemisolALT No additional P-5'-P [Catalytic activity/Vol]14 [iU]/dNormal6 - 46 Int._Unit/LFT[facility] RemisolAST [Catalytic activity/Vol]17 [iU]/dNormal5 - 43 Int._Unit/LFT[facility] RemisolBilirubin [Mass/Vol] 0.6 mg/dLNormal0.0 - 1.1 mg/dLFTMC RemisolFerritin [Mass/Vol]21 ng/mLLow24 - 336 ng/mLFTMC RemisolGlobulin (S) [Mass/Vol]4.2 g/dLHigh1.4 - 4.0 gm/dLFTMC Remisol Iron [Mass/Vol]28 ug/dLLow35 - 153 mcg/dLFTMC RemisolIron binding capacity [Mass/Vol]296 ug/iLRcjjmt960 - 400 mcg/dLFTMC RemisolLactate [Mass/Vol]1.7 mmol/LNormal0.5 - 2.2 mmol/LFTMC RemisolProtein [Mass/Vol]7.3 g/dLNormal6.0 - 7.8 gm/dLFTMC RemisolTransferrin [Mass/Vol]211 mg/vAIjmtdp977 - 370 mg/dLFTMC RemisolTroponin I.cardiac [Mass/Vol]3.20 pg/mLLow15.90 - 38.40 pg/mLFTMC Remisol COAGULATIONOrdered By: Piedad Linda on 81-83-8191iJOV Coag (PPP) [Time]31.3 s Tlythr30.1 - 36.5 second(s)[facility] Auto CoagINR Coag (PPP) [Relative time]1.1 {INR} Invalid Interpretation CodeMEM[facility]IAL [facility] Auto CoagPT Coag (PPP) [Time]12.0 sNormal9.4 - 12.5 second(s)[facility] Auto CoagHEMATOLOGYOrdered By: Piedad Miranda on 93-69-9985Ewc Rate Infmzrqpf25 mm/hHigh0 - 19 mm/hrMC HemeAutoSSNo Panel InformationOrdered By: ANGPROCESSSERVER MICROBIOLOGY on 55-72-7064Hgbuw Culture CharcoalNo growth at 5 days. Final to follow at 7 days.[facility] [place]onBlood Culture CharcoalNo growth at 5 days. Final to follow at 7 days. [facility], [place]onURINALYSISOrdered By: Adri Case on 06-18-2022 Bilirubin Ql (U)Negative (06/18/22 3:06 PM)NormalNegativeMEM[facility] [place] UA Auto SSClarity (U)Clear (06/18/22 3:06 PM)NormalClearFWW [facility] [place] UA Auto SSColor (U)Yellow (06/18/22 3:06 PM)NormalYellowMEMORIAL H[facility] [place] UA Auto SSEpithelial cells.squamous LM.HPF (Urine sed) [#/Area]0-2 /HPFNormal0-2/HPFMEMORIAL HOS[facility] [place] UA Auto SSGlucose Test strip (U) [Mass/Vol]3+ *ABN* (06/18/22 3:06 PM)Invalid Interpretation CodeNegativeMEM[facility] [place] [facility] Auto SSHemoglobin Ql (U)Negative (06/18/22 3:06 PM)NormalNegativeMEM[facility] [place] [facility] Auto SSKetones (U) [Mass/Vol]Negative (06/18/22 3:06 PM)NormalNegativeMEM[facility] [place] U[facility] Auto SSLithium.plasma/Indios.RBC (Bld) [Mass ratio]0-3 /HPFNormal0-3/HPFMEMORIAL [facility] [place] [facility] Auto SSNitrite Ql (U)Negative (06/18/22 3:06 PM)NormalNegativeMEM[facility] [place] [facility] Auto SSpH (U)7.0 *NA* (06/18/22 3:06 PM)Invalid Interpretation Code5.0 - 9.0[facility]A Auto SSProtein (U) [Mass/Vol]Trace *ABN* (06/18/22 3:06 PM)Invalid Interpretation CodeNegativeFTMC UA Auto SSSpecific gravity (U) [Rel density]1.010 *NA* (06/18/22 3:06 PM)Invalid Interpretation Code1.005 - 1.030[facility] UA Auto SSUA Spec DescClean Catch (06/18/22 3:06 PM)NormalFT UA Auto SSUrobilinogen Qn (U)0.5494087 {Tu'U}/dL Normal0.0 - 1.0 EU/dLFTMC UA Auto SSWBC Auto Ql (U)Negative (06/18/22 3:06 PM)NormalNegativeFT[facility] UA Auto SSWBC LM.HPF (Urine sed) [#/Area]0-5 /HPFNormal0-5/HPFFTMC UA Auto SSCHEMISTRYOrdered By: Lab ROPUser on 04-18-2022 Glucose [Mass/Vol]153 mg/qNCbip68 - 99 mg/dLFT[facility] POC SubsectionComment on above: Result Comment: Notified RN/MDPOC Device [id number] Interpretation Code[facility] POC SubsectionPOC User [id number] Interpretation CodeFT[facility] POC SubsectionPOC UsernameRINNER, JESSICAInvalid Interpretation CodeFT[facility] POC SubsectionCHEMISTRYOrdered By: SYSTEM SYSTEM on 90-24-3730Kieyacqpgf peak [Moles/Vol]39 microgram/kOCdzmzc69 - 40 mcg/mLFT[facility] RemisolCHEMISTRYOrdered By: Lab ROPUser on 46-71-4789Koeduej [Mass/Vol]306 mg/lKLvjd74 - 99 mg/dLFTMC POC SubsectionPOC Device [id number] Interpretation Code[facility] POC SubsectionPOC User [id number] Interpretation Code[facility] POC SubsectionPOC UsernameMOTON, NADIAInvalid Interpretation Code[facility] POC SubsectionGlucose [Mass/Vol]244 mg/dHXmtm70 - 99 mg/dLFT[facility] POC SubsectionComment on above:Result Comment: Notified RN/MDPOC Device [id number] Interpretation Code[facility] POC SubsectionPOC User [id number] Interpretation Code[facility] POC Subsection POC UsernameRINNER, JESSICAInvalid Interpretation Code[facility] POC Subsection CHEMISTRYOrdered By: SYSTEM SYSTEM on 18-34-0118Eosap gap [Moles/Vol]13 mmol/L Normal6 - 16 mEq/LFTMC RemisolCalcium [Mass/Vol]8.4 mg/dLLow8.9 - 11.1 mg/dLFT RemisolChloride [Moles/Vol]101 mmol/MGiowpv174 - 111 mmol/LFTMC RemisolCO2 [Moles/Vol]28 mmol/VPxneop28 - 31 mmol/LFT[facility] RemisolCreatinine [Mass/Vol]0.8 mg/dLNormal0.5 - 1.3 mg/dLFTMC RemisolGFR/1.73 sq M.predicted among blacks MDRD (S/P/Bld) [Vol rate/Area]mL/min/1.73 t8Zguuch>=59mL/min/1.73 m2FT Chem S GFR/1.73 sq M.predicted among non-blacks MDRD (S/P/Bld) [Vol rate/Area] mL/min/1.73 u9Muvgam>=59mL/min/1.73 m2[facility] Chem SGlucose [Mass/Vol]182 mg/dL Mkzjow92 - 199 mg/dLFTMC RemisolPotassium [Moles/Vol]3.9 mmol/LNormal3.5 - 5.3 mmol/LFTMC RemisolSodium [Moles/Vol]138 mmol/WZswwnz746 - 145 mmol/LFTMC Remisol Urea nitrogen [Mass/Vol]21 mg/dLNormal5 - 21 mg/dLFT RemisolUrea nitrogen/Creatinine [Mass ratio]26 mg/dqZadk49 - 20FT RemisolHEMATOLOGYOrdered By: SYSTEM SYSTEM on 12-32-2842Jedplhrab/100 WBC (Bld)1.1 %Normal0.0 - 2.0 %[facility] HemeAutoSSBasophils/Leukocytes Auto (Bld) [Pure # fraction]0.1 E9/LNormal0.0 - 0.2 E9/LFTMC HemeAutoSSEosinophils/100 WBC (Bld)4.0 %Normal0.0 - 8.0 %[facility] HemeAutoSSEosinophils/Leukocytes Auto (Bld) [Pure # fraction]0.3 E9/LNormal0.0 - 0.5 E9/LFTMC HemeAutoSSLymphocytes/100 WBC (Bld)22.6 %Awgqfj75.0 - 50.0 %[facility] HemeAutoSSLymphocytes/Leukocytes Auto (Bld) [Pure # fraction]1.5 E9/LNormal1.0 - 4.0 E9/LFTMC HemeAutoSSMonocytes/100 WBC (Bld)10.1 %Normal4.0 - 14.0 %[facility] HemeAutoSSMonocytes/Leukocytes Auto (Bld) [Pure # fraction]0.7 E9/LNormal0.2 - 1.0 E9/LFTMC HemeAutoSSNeutrophils/100 WBC (Bld)62.2 %Vyogfs89.0 - 75.0 %[facility] HemeAutoSSNeutrophils/Leukocytes Auto (Bld) [Pure # fraction]4.2 E9/LNormal2.0 - 7.5 E9/LFTMC HemeAutoSSHEMATOLOGYOrdered By: Amy Sellers on 04-17-2022 Erythrocyte distribution width (RBC) [Ratio]17.0 %High10.9 - 14.2 %[facility] HemeAutoSSHematocrit (Bld) [Volume fraction]29.5 %Low37.7 - 49.0 %[facility] HemeAutoSSHemoglobin (Bld) [Mass/Vol]10.0 g/dLLow13.5 - 17.5 gm/dLFTMC HemeAutoSSMCH (RBC) [Entitic mass]25.9 pgLow27.0 - 34.0 pgFTMC HemeAutoSSMCHC (RBC) [Mass/Vol]33.9 g/iHQcwfbi64.4 - 36.0 gm/dLFTMC HemeAutoSSMCV (RBC) [Entitic vol]76.4 fLLow80.0 - 100.0 fLFTMC HemeAutoSSPlatelet mean volume (Bld) [Entitic vol]7.7 fLNormal6.4 - 10.8 fLFTMC HemeAutoSSPlatelets (Bld) [#/Vol] 371.0 E9/WBtpruf393.0 - 500.0 E9/LFT[facility] HemeAutoSSRBC (Bld) [#/Vol]3.9 E12/LLow 4.3 - 5.9 E12/L[facility] HemeAutoSSWBC corrected for nucl RBC Auto (Bld) [#/Vol]6.8 E9/LNormal4.0 - 11.0 E9/LFT[facility] HemeAutoSSCHEMISTRYOrdered By: SYSTEM SYSTEM on 59-20-1865Ceqsmxllan trough [Moles/Vol]28 microgram/mLInvalid Interpretation Code10 - 20 mcg/mLFTMC RemisolComment on above:Result Comment: Critical Result verified by repeat analysis\Critical Result S_VANC_T:28.0 Called Marvin JIMENEZ AT 3N by SHARA LINDA And Read Back For Confirmation at: 04/16/2022 13:34:09Anion gap [Moles/Vol]15 mmol/LNormal6 - 16 mEq/LFT[facility] RemisolCalcium [Mass/Vol]9.3 mg/dLNormal8.9 - 11.1 mg/dLFT[facility] RemisolChloride [Moles/Vol]99 mmol/FSom079 - 111 mmol/LFT[facility] RemisolCO2 [Moles/Vol]26 mmol/LDpbbus06 - 31 mmol/L[facility] Remisol Creatinine [Mass/Vol]1.0 mg/dLNormal0.5 - 1.3 mg/dLFTMC RemisolGFR/1.73 sq M.predicted among blacks MDRD (S/P/Bld) [Vol rate/Area]mL/min/1.73 o9Gycpmq >=59mL/min/1.73 m2[facility] Chem SGFR/1.73 sq M.predicted among non-blacks MDRD (S/P/Bld) [Vol rate/Area]mL/min/1.73 p5Pcdgkk>=59mL/min/1.73 m2FT Chem S Glucose [Mass/Vol]205 mg/fGXiow88 - 199 mg/dLFTMC RemisolMagnesium [Mass/Vol]1.8 mg/dLNormal1.3 - 2.4 mg/dLFT[facility] RemisolPotassium [Moles/Vol]4.0 mmol/LNormal3.5 - 5.3 mmol/LFT[facility] RemisolSodium [Moles/Vol]136 mmol/RVdjmuu367 - 145 mmol/LFT[facility] RemisolUrea nitrogen [Mass/Vol]23 mg/dLHigh5 - 21 mg/dLFT[facility] RemisolUrea nitrogen/Creatinine [Mass ratio]23 mg/lcEpif83 - 20[facility] RemisolVancomycin peak [Moles/Vol]48 microgram/mLInvalid Interpretation Code20 - 40 mcg/mL[facility] Remisol Comment on above:Result Comment: Critical Result verified by repeat analysis\Critical Result S_VANC_P:48.0 Called Marvin JIMENEZ AT 3N by SHARA LINDA And Read Back For Confirmation at: 04/16/2022 08:58:38CHEMISTRYOrdered By: SYSTEM SYSTEM on 89-52-8230Odpqu gap [Moles/Vol]8 mmol/LNormal6 - 16 mEq/LFT[facility] RemisolCalcium [Mass/Vol]8.7 mg/dLLow8.9 - 11.1 mg/dLFT[facility] RemisolChloride [Moles/Vol]103 mmol/YIytgbp142 - 111 mmol/LFT[facility] RemisolCholesterol [Mass/Vol]88 mg/uVOys047 - 200 mg/dLFT[facility] RemisolCholesterol in HDL [Mass/Vol]24 mg/dLInvalid Interpretation CodeFTMC RemisolCholesterol in LDL [Mass/Vol]44 mg/dLNormal <=129mg/dLFT[facility] RemisolCholesterol in VLDL [Mass/Vol]24 mg/dLNormal7 - 40 mg/dL [facility] RemisolCO2 [Moles/Vol]25 mmol/YXzdshf09 - 31 mmol/LFTMC RemisolCreatinine [Mass/Vol]0.9 mg/dLNormal0.5 - 1.3 mg/dLFT[facility] RemisolGFR/1.73 sq M.predicted among blacks MDRD (S/P/Bld) [Vol rate/Area]mL/min/1.73 z0Qbninp>=59mL/min/1.73 m2[facility] Chem SGFR/1.73 sq M.predicted among non-blacks MDRD (S/P/Bld) [Vol rate/Area]mL/min/1.73 v5Docqvq>=59mL/min/1.73 m2[facility] Chem SGlucose [Mass/Vol]229 mg/aKAwrj83 - 199 mg/dLFT[facility] RemisolPotassium [Moles/Vol]4.0 mmol/LNormal3.5 - 5.3 mmol/L[facility] RemisolSodium [Moles/Vol]132 mmol/SNvf338 - 145 mmol/LFT[facility] RemisolTriglyceride [Mass/Vol]118 mg/dLNormal<=149mg/dLFT[facility] RemisolUrea nitrogen [Mass/Vol]19 mg/dLNormal5 - 21 mg/dLFT[facility] RemisolUrea nitrogen/Creatinine [Mass ratio]21 mg/ghGxhk49 - 20[facility] RemisolHEMATOLOGYOrdered By: [employer] SYSTEM on 99-89-5718Qypzyfatk/100 WBC (Bld)0.8 %Normal0.0 - 2.0 %[facility] HemeAutoSS Basophils/Leukocytes Auto (Bld) [Pure # fraction]0.1 E9/LNormal0.0 - 0.2 E9/L [facility] HemeAutoSSEosinophils/100 WBC (Bld)3.0 %Normal0.0 - 8.0 %[facility] HemeAutoSS Eosinophils/Leukocytes Auto (Bld) [Pure # fraction]0.2 E9/LNormal0.0 - 0.5 E9/L [facility] HemeAutoSSLymphocytes/100 WBC (Bld)25.7 %Tvzeaw06.0 - 50.0 %[facility] HemeAutoSS Lymphocytes/Leukocytes Auto (Bld) [Pure # fraction]2.1 E9/LNormal1.0 - 4.0 E9/L [facility] HemeAutoSSMonocytes/100 WBC (Bld)7.1 %Normal4.0 - 14.0 %[facility] HemeAutoSS Monocytes/Leukocytes Auto (Bld) [Pure # fraction]0.6 E9/LNormal0.2 - 1.0 E9/L [facility] HemeAutoSSNeutrophils/100 WBC (Bld)63.4 %Ndrmdg36.0 - 75.0 %[facility] HemeAutoSS Neutrophils/Leukocytes Auto (Bld) [Pure # fraction]5.1 E9/LNormal2.0 - 7.5 E9/L [facility] HemeAutoSSHEMATOLOGYOrdered By: Carly Bray on 69-10-9962Exiyuseqhqt distribution width (RBC) [Ratio]16.7 %High10.9 - 14.2 %[facility] HemeAutoSSHematocrit (Bld) [Volume fraction]30.6 %Low37.7 - 49.0 %[facility] HemeAutoSSHemoglobin (Bld) [Mass/Vol]10.2 g/dLLow13.5 - 17.5 gm/dLFTMC HemeAutoSSMCH (RBC) [Entitic mass] 25.4 pgLow27.0 - 34.0 pgFTMC HemeAutoSSMCHC (RBC) [Mass/Vol]33.4 g/uBXnpeiy82.4 - 36.0 gm/dLFTMC HemeAutoSSMCV (RBC) [Entitic vol]76.0 fLLow80.0 - 100.0 fLFTMC HemeAutoSSPlatelet mean volume (Bld) [Entitic vol]8.6 fLNormal6.4 - 10.8 fLFT[facility] HemeAutoSSPlatelets (Bld) [#/Vol]347.0 E9/OKjvfam141.0 - 500.0 E9/L[facility] HemeAutoSSRBC (Bld) [#/Vol]4.0 E12/LLow4.3 - 5.9 E12/L[facility] HemeAutoSSWBC corrected for nucl RBC Auto (Bld) [#/Vol]8.0 E9/LNormal4.0 - 11.0 E9/L[facility] HemeAutoSSCHEMISTRYOrdered By: SYSTEM SYSTEM on 03-98-1191Hxkpfpcb I.cardiac [Mass/Vol]3.70 pg/mLLow15.90 - 38.40 pg/mLFTMC RemisolTroponin I.cardiac [Mass/Vol]3.50 pg/mLLow15.90 - 38.40 pg/mLFT[facility] RemisolLactate [Mass/Vol]1.1 mmol/LNormal0.5 - 2.2 mmol/LFT[facility] RemisolTroponin I.cardiac [Mass/Vol]3.50 pg/mL Low15.90 - 38.40 pg/mLFT[facility] RemisolLactate [Mass/Vol]2.2 mmol/LNormal0.5 - 2.2 mmol/LFT[facility] RemisolCHEMISTRYOrdered By: Piedad Miranda on 04-14-2022 Natriuretic peptide B (Bld) [Mass/Vol]80 pg/mLNormal5 - 80 pg/mLFTMC HemeManSS COAGULATIONOrdered By: Ronaldo Estrada on 24-87-8233rOCT Coag (PPP) [Time] 32.4 cTumrur88.1 - 36.5 second(s)[facility] Auto CoagINR Coag (PPP) [Relative time]1.1 {INR}Invalid Interpretation CodeFTMC Auto CoagPT Coag (PPP) [Time]12.0 sNormal 9.4 - 12.5 second(s)[facility] Auto CoagHEMATOLOGYOrdered By: SYSTEM SYSTEM on 69-74-2239Fgjvgfnyk/100 WBC (Bld)1.2 %Normal0.0 - 2.0 %[facility] HemeAutoSS Basophils/Leukocytes Auto (Bld) [Pure # fraction]0.1 E9/LNormal0.0 - 0.2 E9/L [facility] HemeAutoSSEosinophils/100 WBC (Bld)1.5 %Normal0.0 - 8.0 %[facility] HemeAutoSS Eosinophils/Leukocytes Auto (Bld) [Pure # fraction]0.1 E9/LNormal0.0 - 0.5 E9/L [facility] HemeAutoSSLymphocytes/100 WBC (Bld)22.1 %Qtvenp56.0 - 50.0 %[facility] HemeAutoSS Lymphocytes/Leukocytes Auto (Bld) [Pure # fraction]2.0 E9/LNormal1.0 - 4.0 E9/L [facility] HemeAutoSSMonocytes/100 WBC (Bld)5.4 %Normal4.0 - 14.0 %[facility] HemeAutoSS Monocytes/Leukocytes Auto (Bld) [Pure # fraction]0.5 E9/LNormal0.2 - 1.0 E9/L [facility] HemeAutoSSNeutrophils/100 WBC (Bld)69.8 %Emnlug42.0 - 75.0 %[facility] HemeAutoSS Neutrophils/Leukocytes Auto (Bld) [Pure # fraction]6.3 E9/LNormal2.0 - 7.5 E9/L [facility] HemeAutoSSHEMATOLOGYOrdered By: Piedad Miranda on 72-98-9036Phbinwlqvop distribution width (RBC) [Ratio]16.9 %High10.9 - 14.2 %[facility] HemeAutoSSHematocrit (Bld) [Volume fraction]32.3 %Low37.7 - 49.0 %[facility] HemeAutoSSHemoglobin (Bld) [Mass/Vol]10.5 g/dLLow13.5 - 17.5 gm/dLFTMC HemeAutoSSMCH (RBC) [Entitic mass] 25.3 pgLow27.0 - 34.0 pgFTMC HemeAutoSSMCHC (RBC) [Mass/Vol]32.4 g/iQPgtrun59.4 - 36.0 gm/dLFTMC HemeAutoSSMCV (RBC) [Entitic vol]78.1 fLLow80.0 - 100.0 fLFT[facility] HemeAutoSSPlatelet mean volume (Bld) [Entitic vol]8.5 fLNormal6.4 - 10.8 fLFT[facility] HemeAutoSSPlatelets (Bld) [#/Vol]314.0 E9/BErrnbo906.0 - 500.0 E9/L[facility] HemeAutoSSRBC (Bld) [#/Vol]4.1 E12/LLow4.3 - 5.9 E12/L[facility] HemeAutoSSWBC corrected for nucl RBC Auto (Bld) [#/Vol]9.0 E9/LNormal4.0 - 11.0 E9/LFC HemeAutoSSNo Panel InformationOrdered By: ANGPROCESSSERVER MICROBIOLOGY on 54-18-5688Acvkh Culture CharcoalNo growth at 4 days. Final to follow at 7 days. [facility], AvonCBC AUTO DIFFon 72-09-1057LVJI #0.1 103/ulNormal 0.0-0.1The [facility] HospitalComment on above:Performed By: #### CBC #### [facility] [address] [place], [place] [address] Dr. Terrence Albertphils/100 WBC (Bld)0.8 %Normal0.2-2.0The [facility] Comment on above:Performed By: #### CBC #### [facility] [address] [place], [place] [address] Dr. Terrence Tan #0.1 103/ulNormal0.0-0.7The [facility] HospitalComment on above: Performed By: #### CBC #### [facility] [address] [place] [address] Dr. Terrence Campbellosinophils/100 WBC (Bld)1.4 %Normal0.9-7.0The [facility] Comment on above:Performed By: #### CBC #### [facility] [address] [place] [address] Dr. Terrence Campbellrythrocyte distribution width (RBC) [Ratio]15.7 %Critically high 11.0-15.0The [facility] HospitalComment on above:Performed By: #### CBC #### [facility] [address] [place] [address] Dr. Terrence GundersonHematocrit (Bld) [Volume fraction]35.1 %Critically low42.0-54.0 The [facility] HospitalComment on above:Performed By: #### CBC #### [facility] [address] [place] [address] Dr. Terrence GundersonHemoglobin (Bld) [Mass/Vol]11.2 g/dLCritically low14.0-18.0The [facility] HospitalComment on above:Performed By: #### CBC #### [facility] [address] [place] [address] Dr. Terrence Sanchez #0.02 10e3/ulNormal0.00-0.03The [facility] HospitalComment on above:Performed By: #### CBC #### [facility] [address] [place] [address] Dr. Terrence Sanchez %0.3 %Normal0.0-0.5The [facility] HospitalComment on above: Performed By: #### CBC #### [facility] [address] [place] [address] Dr. Terrence Bland #1.9 103/ulNormal1.2-3.8The [facility] HospitalComment on above:Performed By: #### CBC #### [facility] [address] [place] [address] Dr. Yilan ChangLymphocytes/100 WBC (Bld)24.2 %Esutyy88.5-60.0The [facility] HospitalComment on above:Performed By: #### CBC #### [facility] [address] [place] [address] Dr. Terrence Recio DIFF REQNONormalThe [facility] HospitalComment on above: Performed By: #### CBC #### [facility] [address] [place] [address] Dr. Terrence Amanda (RBC) [Entitic mass]25.6 pgCritically low25.9-34.0The [facility] HospitalComment on above:Performed By: #### CBC #### [facility] [address] [place] [address] Dr. Terrence Amanda (RBC) [Mass/Vol]31.9 g/yQBjsazc26.9-35.2The [facility] HospitalComment on above:Performed By: #### CBC #### [facility] [address] [place] [address] Dr. Terrence Moreno (RBC) [Entitic vol]80.1 nLOdrwpg20.0-94.0The [facility] HospitalComment on above:Performed By: #### CBC #### [facility] [address] [place] [address] Dr. Terrence Benton #0.6 103/ulNormal0.3-0.8The [facility] HospitalComment on above:Performed By: #### CBC #### [facility] [address] [place] [address] Dr. Terrence Tomlinsonocytes/100 WBC (Bld)7.8 %Normal1.7-12.0The [facility] Comment on above:Performed By: #### CBC #### [facility] [address] [place] [address] Dr. Terrence Nash #5.2 103/ulNormal1.4-6.5The [facility] HospitalComment on above:Performed By: #### CBC #### [facility] [address] [place] [address] Dr. Yilan ChangNeutrophils/100 WBC (Bld)65.5 %Hxbbeg63.0-75.0The [facility] HospitalComment on above:Performed By: #### CBC #### [facility] [address] [place] [address] Dr. Terrence GundersonPlatelet mean volume (Bld) [Entitic vol]11.2 fLNormal9.5-13.5The [facility] HospitalComment on above:Performed By: #### CBC #### [facility] [address] [place] [address] Dr. Terrence GundersonPLT232 103/maYumptd334-442Dwi [facility] HospitalComcorewell health [facility] on above: Performed By: #### CBC #### [facility] [address] [place] [address] Dr. Terrence GundersonRBC4.38 106/ulCritically low4.70-6.10The [facility] HospitalComment on above:Performed By: #### CBC #### [facility] [address] [place] [address] Dr. Terrence GundersonWBC7.9 103/ulNormal4.0-11.0The [facility] HospitalComment on above: Performed By: #### CBC #### [facility] [address] [place] [address] Dr. Terrence GundersonFREE T4on 45-57-3075Uyvd T4 [Mass/Vol]1.26 ng/dLNormal0.76-1.46 The [facility] HospitalComcorewell [facility] on above:Performed By: #### FT4 #### [facility] [address] [place] [address] Dr. Terrence GundersonHS-CRPon 76-36-2805YU-CRP7.71 mg/LCritically high<=3.00The [facility] on above:Performed By: #### HSCRPT, CMP #### [facility] [address] [place] [address] Dr. Terrence GundersonPROF 14(COMP METB)on 72-67-8126Uiwcttk [Mass/Vol]3.3 g/dL Critically low3.4-5.0The [facility] on above:Performed By: #### HSCRPT, CMP #### [facility] [address] [place] [address] [address] Terrence GundersonAlbumin/Globulin [Mass ratio]0.8 {ratio}NormalThe [facility]Healthment on above:Performed By: #### HSCRPT, CMP #### [facility] [address] [place] [address] [address] Terrence Negron [Catalytic activity/Vol]72 U/DOvhbwt20-232Cbr [facility] on above:Performed By: #### HSCRPT, CMP #### [facility] [address] [place] [address] [address] Terrence Perez [Catalytic activity/Vol]23 U/LRyevoe69-80Qdu [facility] on above:Performed By: #### HSCRPT, CMP #### [facility] [address] [place] [address] [address] Terrence Velasquezon gap [Moles/Vol]12.8 mmol/LNormalThe [facility] Comment on above:Performed By: #### HSCRPT, CMP #### [facility] [address] [place] [address] [address] Terrence Tavera [Catalytic activity/Vol]18 U/NXkonas95-64Lhf [facility] on above:Performed By: #### HSCRPT, CMP #### [facility] [address] [place] [address] [address] Terrence GundersonBilirubin [Mass/Vol]0.4 mg/dLNormal0.2-1.0The [facility] Comment on above:Performed By: #### HSCRPT, CMP #### [facility] [address] [place] [address] [address] Terrence GundersonCalcium [Mass/Vol]9.1 mg/dLNormal8.5-10.1[facility] Comment on above:Performed By: #### HSCRPT, CMP #### [facility] [address] [place] [address] [address] Terrence GundersonChloride [Moles/Vol]98 mmol/QMmccxs52-496Zle [facility] Comment on above:Performed By: #### HSCRPT, CMP #### [facility] [address] [place] [address] Dr. Terrence GundersonCO2 [Moles/Vol]29.3 mmol/BIhydoj33.0-32.0The [facility] Comment on above:Performed By: #### HSCRPT, CMP #### [facility] [address] [place] [address] Dr. Terrence GundersonCreatinine [Mass/Vol]0.88 mg/dLNormal0.70-1.30The [facility] HospitalComment on above:Performed By: #### HSCRPT, CMP #### [facility] [address] [place] [address] Dr. Terrence CampbellGFR-AF MAURITIAN>60Normal>=60The [facility] HospitalComment on above:Performed By: #### HSCRPT, CMP #### [facility] [address] [place] [address] Dr. Terrence CampbellGFR-NON AF MAURITIAN>60Normal>=60The [facility] HospitalComment on above:Performed By: #### HSCRPT, CMP #### [facility] [address] [place] [address] Dr. Terrence GundersonGlobulin (S) [Mass/Vol]4.4 g/dLNormalThe [facility] HospitalComment on above:Performed By: #### HSCRPT, CMP #### [facility] [address] [place] [address] Dr. Terrence uGndersonGlucose [Mass/Vol]273 mg/dLCritically zvxk82-018Hjk [facility] HospitalComment on above:Performed By: #### HSCRPT, CMP #### [facility] [address] [place] [address] Dr. Terrence GundersonPotassium [Moles/Vol]4.1 mmol/LNormal3.5-5.1The [facility] Comment on above:Performed By: #### HSCRPT, CMP #### [facility] [address] [place] [address] Dr. Terrence GundersonProtein [Mass/Vol]7.7 g/dLNormal6.4-8.2The [facility] Comment on above:Performed By: #### HSCRPT, CMP #### [facility] [address] [place] [address] [address] Terrence GundersonSodium [Moles/Vol]136 mmol/BSwifej487-134Osw [facility] Comment on above:Performed By: #### HSCRPT, CMP #### [facility] [address] [place] [address] [address] Terrence Saldana nitrogen [Mass/Vol]19.0 mg/dLCritically high7.0-18.0The [facility] HospitalComment on above:Performed By: #### HSCRPT, CMP #### [facility] [address] [place] [address] Dr. Terrence Saldana nitrogen/Creatinine [Mass ratio]21.6 mg/mgNoCincinnati Shriners HospitalComment on above:Performed By: #### HSCRPT, CMP #### [facility] [address] [place] [address] Dr. Terrence Montes RATE WESTERGRENon 82-28-7689GYW RATE68 mm/hrCritically high <=20The [facility] HospitalComment on above:Performed By: #### SEDR #### [facility] [address] [place] [address] Dr. Terrence Knowles 61-02-0070WSU4.084 uIU/mLNormal0.358-3.740The [facility] HospitalComment on above:Performed By: #### TSH #### [facility] [address] [place] [address] Dr. Terrence GundersonXR CHEST 2 Von 14-23-3823WD CHEST 2 VEXAM: XR CHEST 2 V HISTORY: . Dyspnea . COMPARISON: 03/05/2021 TECHNIQUE: Frontal and lateral chest FINDINGS: Heart and vascularity are unremarkable. Lungs are expanded and free of focal infiltrates. Spondylosis of the spine is noted. IMPRESSION: No acute heart or lung disease identified. Electronically authenticated by: ZARINA CHOWDHURY Date: 2022-04-01 18:43NormalThe Helen HospitalCreatinine and Glomerular filtration rate.predicted panel (S/P/Bld)Ordered By: Janet Otero on 05-69-2719Xyzgttjjhv [Mass/Vol]1.13 mg/dL 0.64-1.27[facility] Hospital DaytonEstimated glomerular filtration rate (GFR) non- AmericanOrdered By: Janet Otero on 17-26-7646ETD/1.73 sq M.predicted among non-blacks MDRD (S/P/Bld) [Vol rate/Area]> 60 mL/MinKindred Hospital DaytonLaboratory - Chemistry and Chemistry - challengeOrdered By: ab Otero on 15-50-7321Rkovvxxxcek peptide B (Bld) [Mass/Vol]18.0 pg/mL 5-100[facility] DaytonNo Panel InformationOrdered By: Janet Otero on 56-86-0176Bydnxrlkc GFR ()> 60 mL/MinKindred Hospital DaytonComment on above:GFR estimated reference range: According to KDOQI guidelines, <60 ml/min/1.73m2 is sufficient todiagnose a patient with chronic kidney disease.Pharmacy Creatinine Clearance (ChemN/[facility] Medical Centererum or plasma anion gap determinationOrdered By: Janet Otero on 02-26-4526Jdsut gap [Moles/Vol]13.1 mmol/L6.0-15.0[facility] Companyerum or plasma calcium measurement (mass/volume)Ordered By: Janet Otero 16-58-4556Vviclxg [Mass/Vol]8.9 mg/dL8.2-10.2FCincinnati Shriners Hospitalerum or plasma chloride measurement (moles/volume)Ordered By: ab Otero 72-27-6378Rlotdcya [Moles/Vol]97 mmol/G14-064CysovogvaRegency Hospital Companyerum or plasma glucose measurement (mass/volume)Ordered By: ab Otero on 52-69-5406Babthni [Mass/Vol]242 mg/bY60-292BvcfkcehpKindred Hospital DaytonComment on above:ADA recommended reference rangeRandom Glucose Reference Range is dependent on time and content of last meal. Glucose of more than 200 mg/dL in a nonstressed, ambulatory subject supports the diagnosisof Diabetes Mellitus.Serum or plasma potassium measurement (moles/volume)Ordered By: Janet Otero on 80-20-2558Lhnlmmjte [Moles/Vol]4.3 mmol/L3.5-5.1FCincinnati Shriners Hospitalerum or plasma sodium measurement (moles/volume)Ordered By: Janet Otero on 98-42-9523Absvei [Moles/Vol]132 mmol/H281-919BsxnqshcfRegency Hospital Companyerum or plasma total carbon dioxide measurement (moles/volume)Ordered By: ab Otero on 66-66-2410EV4 [Moles/Vol]26.2 mmol/L 22.0-30.0[facility] Companyerum or plasma urea nitrogen measurement (mass/volume)Ordered By: Janet Otero on 46-14-1777Lfic nitrogen [Mass/Vol]28 mg/dL9-23Kind[facility] Hospital DaytonBASIC METABOLIC PANELon 66-52-4401Aeeutbb [Mass/Vol]8.4 mg/dLLow8.6-10.3The [facility] SouthComment on above:Order Comment: No: Do not add to previous drawRn draw JoePerformed By: #### [id number] ####[facility] [place] [address], USAChloride [Moles/Vol]96 mmol/BKnj26-700Fad [facility] SouthComment on above:Order Comment: No: Do not add to previous drawRn draw JoePerformed By: #### [id number] ####[facility] [place] [address], [place]2 [Moles/Vol]34 mmol/L Ihtd53-54Bhh [facility] SouthComment on above:Order Comment: No: Do not add to previous drawRn draw JoePerformed By: #### [id number] ####[facility] [place] [address], [place] Creatinine [Mass/Vol]1.17 mg/dLNormal0.70-1.30The [facility] SouthComment on above:Order Comment: No: Do not add to previous drawRn draw Andrei Performed By: #### [id number] ####[facility] [id number], USAGFR/1.73 sq M.predicted among non-blacks MDRD (S/P/Bld) [Vol rate/Area]mL/min/{1.73_m2}Normal>60The [facility] Comment on above:Order Comment: No: Do not add to previous drawRn draw JoeResult Comment: The [facility]'s estimated glomerularfiltration rate (eGFR) will no longer include consideration of race inits calculation. The [employer]'s eGFR Task Forcedeveloped new recommendations for the estimation of the glomerularfiltration rate in the [place] They recommend immediate implementation ofthe new equation refit without the race variable in all laboratoriesbecause the calculation does not include race. In addition to notincluding race inthe calculation and reporting, it included diversityin its development, and has acceptable performance characteristics andpotential consequences that do not disproportionately affect any onegroup of individuals.Performed By: #### [id number] ####[facility] [facility] [place] [place] [address], [facility] MEDICAL CENTERGlucose [Mass/Vol]177 mg/[id number] [facility] SouthComment on above:Order Comment: No: Do not add to previous drawRn draw JoePerformed By: #### [id number] ####[facility] [facility] [place] [address], USAPotassium [Moles/Vol]3.9 mmol/LNormal3.5-5.1The [facility] SouthComment on above:Order Comment: No: Do not add to previous drawRn draw JoePerformed By: #### [id number] ####[facility] [facility] [place] [address], [place] Sodium [Moles/Vol]136 mmol/FAfosbj956-605Mww [facility] [place] Comment on above:Order Comment: No: Do not add to previous drawRn draw Andrei Performed By: #### [id number] ####[facility] [place] [address], USAUrea nitrogen [Mass/Vol]58 mg/dLHigh7-25The [facility] SouthComment on above:Order Comment: No: Do not add to previous drawRn draw JoePerformed By: #### [id number] ####[facility] [place] [address], USACBC COMPLETE BLOOD COUNTon 46-10-1529Oorxzvhrdji distribution width (RBC) [Ratio]14.6 %Ebloea61.5-15.0The [facility] SouthComment on above:Order Comment: No: Do not add to previous drawRn draw JoePerformed By: #### [id number] ####[facility] [place] [address], USAHematocrit (Bld) [Volume fraction]30.6 %Low39.0-50.0The [facility] SouthComment on above:Order Comment: No: Do not add to previous drawRn draw JoePerformed By: #### [id number] ####[facility] [place] [address], USAHemoglobin (Bld) [Mass/Vol]10.0 g/dLLow13.0-17.0The [facility] SouthComment on above:Order Comment: No: Do not add to previous drawRn draw JoePerformed By: #### [id number] ####[facility] [place] [address], USAMCH (RBC) [Entitic mass]26.7 pgLow 27.0-33.0The [facility] SouthComment on above:Order Comment: No: Do not add to previous drawRn draw JoePerformed By: #### [id number] ####[facility] [place] [address], [facility] MCHC (RBC) [Mass/Vol]32.7 g/kNZgebyc20.0-35.0The [facility] SouthComment on above:Order Comment: No: Do not add to previous drawRn draw Andrei Performed By: #### [id number] ####[facility] [id number], [facility] CENTERMCV (RBC) [Entitic vol]81.6 fLLow82.0-98.0The [facility] SouthComment on above:Order Comment: No: Do not add to previous drawRn draw JoePerformed By: #### [id number] ####[facility] [place] [address], [facility]ICAL CENTERNucleated RBC/100 WBC (Bld) [Ratio]0 %Normal0-0The [facility] SouthComment on above:Order Comment: No: Do not add to previous drawRn draw JoePerformed By: #### [id number] ####[facility] [place] [address], USAPLAT [id number] 10*3/ySGiojhz745-046Twf [facility] SouthComment on above:Order Comment: No: Do not add to previous drawRn draw Andrei Performed By: #### [id number] ####[facility] [place] [address], [facility] CENTERRBC (Bld) [#/Vol]3.75 10*6/uLLow4.20-5.70The [facility] SouthComment on above:Order Comment: No: Do not add to previous drawRn draw JoePerformed By: #### [id number] ####[facility] [place] [address], [facility] CENTERWBC (Bld) [#/Vol]8.71 10*3/uLNormal4.00-10.60The [facility] SouthComment on above: Order Comment: No: Do not add to previous drawRn draw JoePerformed By: #### [id number] ####[facility] [place] [address], USAPOC GLUCOSE LABon 90-41-0233Vephmsk [Mass/Vol]221 mg/fSGpiy78-335Mkt [facility] SouthComment on above:Performed By: #### [id number] ####[facility] [place] [address], [place] Glucose [Mass/Vol]147 mg/yQAbct79-647Ykl [facility] Comment on above:Performed By: #### [id number] ####[facility] [place] [address], USABASIC METABOLIC PANELon 12-19-2021 Calcium [Mass/Vol]8.8 mg/dLNormal8.6-10.3The [facility] Comment on above:Order Comment: No: Do not add to previous drawPerformed By: #### [id number] ####[facility] [place] [address], USAChloride [Moles/Vol]95 mmol/EYvj63-788Jll [facility] SouthComment on above:Order Comment: No: Do not add to previous drawPerformed By: #### [id number] ####[facility] [place] [address], USACO2 [Moles/Vol]32 mmol/ZJsem37-45Jjd [facility] SouthComment on above:Order Comment: No: Do not add to previous drawPerformed By: #### [id number] ####[facility] [place] [address], USACreatinine [Mass/Vol]0.99 mg/dLNormal0.70-1.30The [facility] SouthComment on above:Order Comment: No: Do not add to previous drawPerformed By: #### [id number] ####[facility] [facility] [place] [address], USAGFR/1.73 sq M.predicted among non-blacks MDRD (S/P/Bld) [Vol rate/Area]mL/min/{1.73_m2}Normal>60The [facility] SouthComment on above:Order Comment: No: Do not add to previous draw Result Comment: The [facility]'s estimated glomerularfiltration rate (eGFR) will no longer include consideration of race inits calculation. The National Kidney Foundation's eGFR Task Forcedeveloped new recommendations for the estimation of the glomerularfiltration rate in the [place] They recommend immediate implementation ofthe new equation refit without the race variable in all laboratoriesbecause the calculation does not include race. In addition to notincluding race inthe calculation and reporting, it included diversityin its development, and has acceptable performance characteristics andpotential consequences that do not disproportionately affect any onegroup of individuals.Performed By: #### [id number] ####[facility] [facility] [place] [address], USAGlucose [Mass/Vol]280 mg/hAFgdd91-062Qjl [facility] SouthComment on above:Order Comment: No: Do not add to previous drawPerformed By: #### [id number] ####[facility] [facility] [place] [address], USAPotassium [Moles/Vol]4.5 mmol/L Normal3.5-5.1The [facility] SouthComment on above:Order Comment: No: Do not add to previous drawPerformed By: #### [id number] ####[facility] [facility] [place] [address], USASodium [Moles/Vol]135 mmol/AFpb894-403Vhb [facility] SouthComment on above:Order Comment: No: Do not add to previous drawPerformed By: #### [id number] ####[facility] [facility] [place] [address], [place] Urea nitrogen [Mass/Vol]44 mg/dLHigh7-25The [facility] Comment on above:Order Comment: No: Do not add to previous drawPerformed By: #### [id number] ####[facility] [place] [address], [facility] COMPLETE BLOOD COUNTon 95-74-6216Milyjfiatmx distribution width (RBC) [Ratio]14.6 %Kgvuji38.5-15.0The [facility] SouthComment on above:Order Comment: No: Do not add to previous drawPerformed By: #### [id number] ####[facility] [place] [address], [facility] Hematocrit (Bld) [Volume fraction]34.6 %Low39.0-50.0The [facility] SouthComment on above:Order Comment: No: Do not add to previous draw Performed By: #### [id number] ####[facility] [place] [address], [facility] CENTERHemoglobin (Bld) [Mass/Vol]11.1 g/dLLow13.0-17.0The [facility] SouthComment on above:Order Comment: No: Do not add to previous drawPerformed By: #### [id number] ####[facility] [place] [address], [facility] (RBC) [Entitic mass]26.2 pgLow 27.0-33.0The [facility] SouthComment on above:Order Comment: No: Do not add to previous drawPerformed By: #### [id number] ####[facility] [place] [address], [facility] [place] [facility]UR[facility]THC (RBC) [Mass/Vol]32.1 g/gUTwovjf89.0-35.0The [facility] SouthComment on above:Order Comment: No: Do not add to previous drawPerformed By: #### [id number] ####[facility] [place] [address], USAMCV (RBC) [Entitic vol]81.8 fLLow82.0-98.0The [facility] SouthComment on above:Order Comment: No: Do not add to previous drawPerformed By: #### [id number] ####[facility] [place] [address], [facility] Nucleated RBC/100 WBC (Bld) [Ratio]0 %Normal0-0The [facility] SouthComment on above:Order Comment: No: Do not add to previous drawPerformed By: #### [id number] ####[facility] [place] [address], USAPLAT [id number] 10*3/oVWhanjl193-791Lxr [facility] SouthComment on above:Order Comment: No: Do not add to previous drawPerformed By: #### [id number] ####[facility] [place] [address], [facility] CENTERRBC (Bld) [#/Vol]4.23 10*6/uLNormal4.20-5.70The [facility] SouthComment on above:Order Comment: No: Do not add to previous drawPerformed By: #### [id number] ####[facility] [place] [address], [facility] CENTERWBC (Bld) [#/Vol]9.04 10*3/uLNormal4.00-10.60 The [facility] SouthComment on above:Order Comment: No: Do not add to previous drawPerformed By: #### [id number] ####[facility] [id number], [facility] CENTERPOC GLUCOSE LABon 15-83-9392Errensl [Mass/Vol]225 mg/dSNfrp95-915Ejc [facility] SouthComment on above:Performed By: #### [id number] ####[facility] [place] [address], USAGlucose [Mass/Vol]308 mg/dLHigh 70-100The [facility] SouthComment on above:Performed By: #### [id number] ####[facility] [place] [address], USAGlucose [Mass/Vol]145 mg/fDGxbc96-963Hed [facility] SouthComment on above:Performed By: #### [id number] ####[facility] [place] [address], USAGlucose [Mass/Vol]243 mg/dLHigh 70-100The [facility] SouthComment on above:Performed By: #### 15457 ####[facility] [place] [address], USABASIC METABOLIC PANELon 16-02-5163Wtsgrsd [Mass/Vol]8.3 mg/dLLow 8.6-10.3The [facility] SouthComment on above:Order Comment: No: Do not add to previous drawPerformed By: #### [id number] ####[facility] [place] [address], USAChloride [Moles/Vol]94 mmol/WBfj79-103Fih [facility] SouthComment on above:Order Comment: No: Do not add to previous drawPerformed By: #### 06100 ####[facility] [place] [address], USACO2 [Moles/Vol] 33 mmol/NUavr28-81Dkr [facility] SouthComment on above:Order Comment: No: Do not add to previous drawPerformed By: #### [id number] ####[facility] [place] [address], USACreatinine [Mass/Vol]0.91 mg/dLNormal0.70-1.30The [facility] Comment on above:Order Comment: No: Do not add to previous drawPerformed By: #### [id number] ####[facility] [place] [address], USAGFR/1.73 sq M.predicted among non-blacks MDRD (S/P/Bld) [Vol rate/Area]mL/min/{1.73_m2}Normal>60The [facility] Comment on above:Order Comment: No: Do not add to previous drawResult Comment: The [facility]'s estimated glomerularfiltration rate (eGFR) will no longer include consideration of race inits calculation. The National Kidney Foundation's eGFR Task Forcedeveloped new recommendations for the estimation of the glomerularfiltration rate in the [place] They recommend immediate implementation ofthe new equation refit without the race variable in all laboratoriesbecause the calculation does not include race. In addition to notincluding race inthe calculation and reporting, it included diversityin its development, and has acceptable performance characteristics andpotential consequences that do not disproportionately affect any onegroup of individuals. Performed By: #### [id number] ####[facility] [facility] [place] [address], USAGlucose [Mass/Vol]214 mg/uWIwfy31-418Rzp [facility] SouthComment on above:Order Comment: No: Do not add to previous drawPerformed By: #### 25019 ####[facility] [facility] [place] [address], USAPotassium [Moles/Vol]4.2 mmol/LNormal3.5-5.1 The [facility] SouthComment on above:Order Comment: No: Do not add to previous drawPerformed By: #### [id number] ####[facility] [place] [address], USASodium [Moles/Vol]134 mmol/FEpz447-761Rla [facility] SouthComment on above:Order Comment: No: Do not add to previous drawPerformed By: #### 74810 ####[facility] [place] [address], [facility] CENTERUrea nitrogen [Mass/Vol]50 mg/dLHigh7-25The [facility] SouthComment on above:Order Comment: No: Do not add to previous drawPerformed By: #### [id number] ####[facility] [place] [address], [facility] CBC COMPLETE BLOOD COUNTon 09-74-0753Xmphizagzie distribution width (RBC) [Ratio]14.5 %Mltxzv95.5-15.0The [facility] SouthComment on above:Order Comment: No: Do not add to previous drawPerformed By: #### [id number] ####[facility] [facility] [place] [address], [facility] Hematocrit (Bld) [Volume fraction]34.2 %Low39.0-50.0The [facility] SouthComment on above:Order Comment: No: Do not add to previous draw Performed By: #### [id number] ####[facility] [facility] [place] [address], [facility] CENTERHemoglobin (Bld) [Mass/Vol]10.8 g/dLLow13.0-17.0The [facility] SouthComment on above:Order Comment: No: Do not add to previous drawPerformed By: #### [id number] ####[facility] [facility] [place] [address], [facility] CENTERMCH (RBC) [Entitic mass]26.3 pgLow 27.0-33.0The [facility] SouthComment on above:Order Comment: No: Do not add to previous drawPerformed By: #### [id number] ####[facility] [facility] [place] [place] [address], [facility] CENTERMCHC (RBC) [Mass/Vol]31.6 g/dLLow32.0-35.0The [facility] SouthComment on above:Order Comment: No: Do not add to previous drawPerformed By: #### [id number] ####[facility] [place] [address], [facility] CENTERMCV (RBC) [Entitic vol]83.4 fZLzxizq66.0-98.0The [facility] Comment on above:Order Comment: No: Do not add to previous drawPerformed By: #### [id number] ####[facility] [place] [address], USANucleated RBC/100 WBC (Bld) [Ratio]0 %Normal0-0The [facility] SouthComment on above:Order Comment: No: Do not add to previous drawPerformed By: #### [id number] ####[facility] [place] [address], USAPLAT FGO732 10*3/oXHesjdn066-201Cgx [facility] SouthComment on above:Order Comment: No: Do not add to previous drawPerformed By: #### [id number] ####[facility] [place] [address], [facility] CENTERRBC (Bld) [#/Vol]4.10 10*6/uLLow 4.20-5.70The [facility] SouthComment on above:Order Comment: No: Do not add to previous drawPerformed By: #### [id number] ####[facility] [place] [address], [facility] CENTERWBC (Bld) [#/Vol]9.98 10*3/uLNormal4.00-10.60The [facility] SouthComment on above: Order Comment: No: Do not add to previous drawPerformed By: #### [id number] ####[facility] [place] [address], [facility] POC GLUCOSE LABon 65-49-8823Qzamldl [Mass/Vol]347 mg/lUKhai52-982Ucr [facility] SouthComment on above:Performed By: #### 82153 ####[facility] [place] [address], USAGlucose [Mass/Vol]280 mg/aFLxoa87-889Xcq [facility] SouthComment on above:Performed By: #### 53326 ####[facility] [place] [address], USAGlucose [Mass/Vol]177 mg/oFMyiw96-280Eyc [facility] SouthComment on above:Performed By: #### 79145 ####[facility] [place] [address], [place] Glucose [Mass/Vol]224 mg/zVCuyb58-774Vzk [facility] Comment on above:Performed By: #### [id number] ####[facility] [place] [address], USAANKLE RIGHT 3 VWSon 12-17-2021 ANKLE RIGHT 3 [facility] HospitalComment on above: Order Comment: DJDBASIC METABOLIC PANELon 83-15-9638Chquvof [Mass/Vol]8.4 mg/dL Low8.6-10.3The [facility] SouthComment on above:Order Comment: No: Do not add to previous drawPerformed By: #### 50031 ####[facility] [place] [address], USAChloride [Moles/Vol]92 mmol/UZzw59-833Dfi [facility] SouthComment on above:Order Comment: No: Do not add to previous drawPerformed By: #### [id number] ####[facility] [place] [address], [place] CO2 [Moles/Vol]36 mmol/WClvs34-42Wjk [facility] SouthComment on above:Order Comment: No: Do not add to previous drawPerformed By: #### 15859 ####[facility] [place] [address], [place] Creatinine [Mass/Vol]1.25 mg/dLNormal0.70-1.30The [facility] SouthComment on above:Order Comment: No: Do not add to previous drawPerformed By: #### [id number] ####[facility] [facility] [place] [address], USAGFR/1.73 sq M.predicted among non-blacks MDRD (S/P/Bld) [Vol rate/Area]mL/min/{1.73_m2}Normal>60The [facility] Comment on above:Order Comment: No: Do not add to previous drawResult Comment: The [facility]'s estimated glomerularfiltration rate (eGFR) will no longer include consideration of race inits calculation. The National Kidney Foundation's eGFR Task Forcedeveloped new recommendations for the estimation of the glomerularfiltration rate in the [place] They recommend immediate implementation ofthe new equation refit without the race variable in all laboratoriesbecause the calculation does not include race. In addition to notincluding race inthe calculation and reporting, it included diversityin its development, and has acceptable performance characteristics andpotential consequences that do not disproportionately affect any onegroup of individuals. Performed By: #### [id number] ####[facility] [facility] [place] [address], USAGlucose [Mass/Vol]281 mg/fCVrrh48-443Nmw [facility] SouthComment on above:Order Comment: No: Do not add to previous drawPerformed By: #### [id number] ####[facility] [facility] [place] [address], USAPotassium [Moles/Vol]3.6 mmol/LNormal3.5-5.1 The [facility] SouthComment on above:Order Comment: No: Do not add to previous drawPerformed By: #### 86817 ####[facility] [facility] [place] [address], USASodium [Moles/Vol]134 mmol/SZms703-648Pca [facility] SouthComment on above:Order Comment: No: Do not add to previous drawPerformed By: #### [id number] ####[facility] [place] [address], [facility]ICAL CENTERUrea nitrogen [Mass/Vol]58 mg/dLHigh7-25The [facility] SouthComment on above:Order Comment: No: Do not add to previous drawPerformed By: #### 96071 ####[facility] [facility] [place] [place] [address], [facility] CBC W/DIFFon 42-49-3925XIS IMM GRANS0.1 10*3/uLNormal0.0-0.2The [facility] SouthComment on above:Order Comment: No: Do not add to previous drawPerformed By: #### [id number] ####[facility] [facility] [place] [place] [address], [facility] CENTERABS NEUTROPHILS5.8 10*3/uLNormal1.6-7.6The [facility] SouthComment on above:Order Comment: No: Do not add to previous drawPerformed By: #### [id number] ####[facility] [facility] [place] [place] [address], [facility] CENTERBasophils (Bld) [#/Vol]0.1 10*3/uL Normal0.0-0.2The [facility] SouthComment on above:Order Comment: No: Do not add to previous drawPerformed By: #### [id number] ####[facility] [facility] [place] [address], [facility] CENTERBasophils/100 WBC (Bld)0.8 %Normal0.0-1.0The [facility] SouthComment on above:Order Comment: No: Do not add to previous drawPerformed By: #### [id number] ####[facility] [facility] [place] [place] [address], [place] Eosinophils (Bld) [#/Vol]0.2 10*3/uLNormal0.0-0.5The [facility] SouthComment on above:Order Comment: No: Do not add to previous draw Performed By: #### 12670 ####[facility] [facility] [place] [address], USAEosinophils/100 WBC (Bld)1.7 %Normal0.0-6.0The [facility] SouthComment on above:Order Comment: No: Do not add to previous drawPerformed By: #### [id number] ####[facility] [facility] [place] [address], USAErythrocyte distribution width (RBC) [Ratio]14.1 %Uqhpwd56.5-15.0The [facility] SouthComment on above:Order Comment: No: Do not add to previous drawPerformed By: #### [id number] ####[facility] [facility] [place] [address], [place] Hematocrit (Bld) [Volume fraction]32.4 %Low39.0-50.0The [facility] SouthComment on above:Order Comment: No: Do not add to previous draw Performed By: #### [id number] ####[facility] [facility] [place] [address], [facility] CENTERHemoglobin (Bld) [Mass/Vol]10.3 g/dLLow13.0-17.0The [facility] SouthComment on above:Order Comment: No: Do not add to previous drawPerformed By: #### 80031 ####[facility] [facility] [place] [address], USAIMMATURE GRANS0.6 %Normal0.0-1.0 The [facility] SouthComment on above:Order Comment: No: Do not add to previous drawPerformed By: #### [id number] ####[address] [place] [address], USALymphocytes (Bld) [#/Vol] 2.2 10*3/uLNormal1.2-4.0The [facility] SouthComment on above: Order Comment: No: Do not add to previous drawPerformed By: #### [id number] ####[facility] [facility] [place] [place] [address], [facility] Lymphocytes/100 WBC (Bld)24.1 %Akfvof77.0-45.0The [facility] SouthComment on above:Order Comment: No: Do not add to previous drawPerformed By: #### [id number] ####[facility] [facility] [place] [place] [address], [facility] [place] (RBC) [Entitic mass]26.2 pgLow27.0-33.0The [facility] SouthComment on above:Order Comment: No: Do not add to previous drawPerformed By: #### [id number] ####[facility] [facility] [place] [address], [facility]ENTERMCHC (RBC) [Mass/Vol]31.8 g/dLLow32.0-35.0The [facility] SouthComment on above:Order Comment: No: Do not add to previous drawPerformed By: #### [id number] ####[facility] [facility] [place] [place] [address], [facility] [place] [facility] [place] (RBC) [Entitic vol]82.4 fL Ynbexn35.0-98.0The [facility] SouthComment on above:Order Comment: No: Do not add to previous drawPerformed By: #### [id number] ####[facility] [facility] [place] [place] [address], [facility] CENTERMonocytes (Bld) [#/Vol]0.8 10*3/uLNormal0.1-1.0The [facility] SouthComment on above:Order Comment: No: Do not add to previous drawPerformed By: #### [id number] ####[facility] [place] [address], [place] MONOS8.6 %Normal5.0-12.0The [facility] SouthComment on above: Order Comment: No: Do not add to previous drawPerformed By: #### [id number] ####[facility] [place] [address], [place] Neutrophils/100 WBC (Bld)64.2 %Xjhluv78.0-72.0The [facility] SouthComment on above:Order Comment: No: Do not add to previous drawPerformed By: #### 47075 ####[facility] [place] [address], [facility] MEDICAL CENTERNucleated RBC/100 WBC (Bld) [Ratio]0 %Normal0-0The [facility] SouthComment on above:Order Comment: No: Do not add to previous drawPerformed By: #### [id number] ####[facility] [place] [address], USAPLAT FPB389 10*3/tSObpbyx173-857Che [facility] SouthComment on above:Order Comment: No: Do not add to previous drawPerformed By: #### [id number] ####[facility] [place] [address], USARBC (Bld) [#/Vol]3.93 10*6/uLLow 4.20-5.70The [facility] SouthComment on above:Order Comment: No: Do not add to previous drawPerformed By: #### [id number] ####[facility] [place] [address], USAWBC (Bld) [#/Vol]9.03 10*3/uLNormal4.00-10.60The [facility] SouthComment on above: Order Comment: No: Do not add to previous drawPerformed By: #### [id number] ####[facility] [place] [address], [place] FOOT RIGHT 3 VWSon 98-30-3264MOIO RIGHT 3 VWSNormJ.W. Ruby Memorial Hospitale [facility] SouthComment on above:Order Comment: InfectionPOC GLUCOSE LABon 86-28-6992Unbwbvh [Mass/Vol]356 mg/oGLzhr21-335Vee [facility] SouthComment on above:Performed By: #### 59328 ####[facility] [place] [address], USAGlucose [Mass/Vol]280 mg/dLHigh 70-100The [facility] SouthComment on above:Performed By: #### [id number] ####[facility] [place] [address], USAGlucose [Mass/Vol]203 mg/fXStnc46-803Gpy [facility] SouthComment on above:Performed By: #### 16114 ####[facility] [address], USAGlucose [Mass/Vol]187 mg/dLHigh 70-100The [facility] SouthComment on above:Performed By: #### 23044 ####[facility] [place] [address], USAVENOUS BLOOD GASon 61-11-8440MJJO MBWKPV43 mmol/LNormalThe [facility] SouthComment on above:Performed By: #### 85185 ####[facility] [place] [address], USAHCO3 (Bld) [Moles/Vol]39 mmol/LNormalThe [facility] SouthComment on above:Performed By: #### 40044 ####[facility] [place] [address], USAOxygen (Bld) [Partial pressure]37 mm[Hg] Ipihjo58-86Czt [facility] SouthComment on above:Performed By: #### 80694 ####[facility] [place] [address], USAOxygen saturation in Blood61.0 %Low65.0-75.0The [facility] SouthComment on above:Performed By: #### 10381 ####[facility] [place] [address], WADJCX069 mmHgNormalThe [facility] SouthComment on above:Performed By: #### 26539 ####[facility] [place] [address], [place] pH (Bld)7.41 [pH]Normal7.31-7.41The [facility] SouthComment on above:Performed By: #### 85203 ####[facility] [place] [address], USABASIC METABOLIC PANELon 89-04-7534Xaivhfn [Mass/Vol]9.0 mg/dLNormal8.6-10.3The [facility] SouthComment on above:Order Comment: No: Do not add to previous drawPerformed By: #### 73552, 30486, 40776 ####[facility] [place] [address], USAChloride [Moles/Vol]83 mmol/EIwy10-988Ipw [facility] SouthComment on above:Order Comment: No: Do not add to previous draw Performed By: #### 06219, 90264, 10773 ####[facility] [place] [address], USACO2 [Moles/Vol]39 mmol/PBfbp63-81 The [facility] SouthComment on above:Order Comment: No: Do not add to previous drawPerformed By: #### 53595, 42030, 08164 ####[facility] [place] [address], USACreatinine [Mass/Vol]1.36 mg/dLHigh0.70-1.30The [facility] SouthComment on above:Order Comment: No: Do not add to previous drawPerformed By: #### 96791, 35065, 74186 ####[facility] [place] [address], QMWIDSY75 ml/min/1.73sq mAbnormal>60The [facility] SouthComment on above:Order Comment: No: Do not add to previous drawResult Comment: The [facility]'s estimated glomerularfiltration rate (eGFR) will no longer include consideration of race inits calculation. The National Kidney Foundation's eGFR Task Forcedeveloped new recommendations for the estimation of the glomerularfiltration rate in the [place] They recommend immediate implementation ofthe new equation refit without the race variable in all laboratoriesbecause the calculation does not include race. In addition to notincluding race inthe calculation and reporting, it included diversityin its development, and has acceptable performance characteristics andpotential consequences that do not disproportionately affect any onegroup of individuals.Performed By: #### 40954, 58853, 82169 ####[facility] [facility] [place] [address], USAGlucose [Mass/Vol]287 mg/iCBokg33-172Viw [facility] SouthComment on above:Order Comment: No: Do not add to previous drawPerformed By: #### 33937, 23719, 34057 ####[facility] [facility] [place] [address], [place] Potassium [Moles/Vol]2.8 mmol/LLow3.5-5.1The [facility] Comment on above:Order Comment: No: Do not add to previous drawPerformed By: #### 92647, 24772, 42287 ####[facility] [facility] [place] [address], USASodium [Moles/Vol]132 mmol/TTcq538-356Afs [facility] SouthComment on above:Order Comment: No: Do not add to previous drawPerformed By: #### 17612, 29690, 23938 ####[facility] [place] [address], [facility]ICAL CENTERUrea nitrogen [Mass/Vol]67 mg/dL High7-25The [facility] SouthComment on above:Order Comment: No: Do not add to previous drawPerformed By: #### 64078, 52467, 89302 ####[facility] [place] [address], [facility] CBC COMPLETE BLOOD COUNTon 07-87-9133Jcuoklbsmdf distribution width (RBC) [Ratio]14.1 %Nzlttp85.5-15.0The [facility] SouthComment on above:Order Comment: No: Do not add to previous drawPerformed By: #### [id number] ####[address] [place] [address], [facility] Hematocrit (Bld) [Volume fraction]33.0 %Low39.0-50.0The [facility] SouthComment on above:Order Comment: No: Do not add to previous draw Performed By: #### 39683 ####[facility] [facility] [place] [place] [address], [facility] CENTERHemoglobin (Bld) [Mass/Vol]11.1 g/dLLow13.0-17.0The [facility] SouthComment on above:Order Comment: No: Do not add to previous drawPerformed By: #### 22388 ####[facility] [place] [address], [facility] CENTERMCH (RBC) [Entitic mass]26.7 pgLow 27.0-33.0The [facility] SouthComment on above:Order Comment: No: Do not add to previous drawPerformed By: #### 00359 ####[facility] [place], [place] [address]E[place] [address], [facility] CENTERMCHC (RBC) [Mass/Vol]33.6 g/rWMezhdf62.0-35.0The [facility] SouthComment on above:Order Comment: No: Do not add to previous drawPerformed By: #### 02110 ####[facility] [place] [address], [facility] CENTERMCV (RBC) [Entitic vol]79.5 fLLow82.0-98.0The [facility] SouthComment on above:Order Comment: No: Do not add to previous drawPerformed By: #### 54597 ####[facility] [address], [facility] Nucleated RBC/100 WBC (Bld) [Ratio]0 %Normal0-0The [facility] SouthComment on above:Order Comment: No: Do not add to previous drawPerformed By: #### 71355 ####[facility] [facility] [place] [address], [place]APLAT LVC693 10*3/qNYaukbj885-973Jhz [facility] SouthComment on above:Order Comment: No: Do not add to previous drawPerformed By: #### 77408 ####[facility] [place] [address].[place] [address], [facility] MEDICAL CENTERRBC (Bld) [#/Vol]4.15 10*6/uLLow4.20-5.70The [facility] SouthComment on above:Order Comment: No: Do not add to previous draw Performed By: #### 02363 ####[facility] [facility] [place] [address], [facility] CENTERWBC (Bld) [#/Vol]9.30 10*3/uLNormal4.00-10.60The [facility] SouthComment on above:Order Comment: No: Do not add to previous drawPerformed By: #### 57117 ####[facility] [place] [address].[place] [address], USAMAGNESIUM BLOODon 12-16-2021 Magnesium [Mass/Vol]2.5 mg/dLNormal1.9-2.7The [facility] SouthComment on above:Order Comment: No: Do not add to previous drawPerformed By: #### 45494, 47044, 43897 ####[facility] [place] [address], USAPHOSPHORUS BLOODon 08-37-2083Ncvtgvhpj [Mass/Vol]5.6 mg/dLHigh2.5-5.0The [facility] SouthComment on above:Order Comment: No: Do not add to previous drawPerformed By: #### 84718, 68523, 80975 ####[facility] [place] [address], USAPOC GLUCOSE LABon 31-61-8475Bgaytbt [Mass/Vol]450 mg/gJBjht94-480 The [facility] SouthComment on above:Performed By: #### 27165 ####[facility] [facility] [place] [address], [place] Glucose [Mass/Vol]258 mg/qANnrl16-298Mon [facility] Comment on above:Performed By: #### 77429 ####[facility] [place] [address], USAGlucose [Mass/Vol]291 mg/dLHigh 70-100The [facility] SouthComment on above:Performed By: #### 05969 ####[facility] [place] [address], USAGlucose [Mass/Vol]279 mg/vGStqj94-146Byj [facility] SouthComment on above:Performed By: #### 73104 ####[facility] [place] [address], USAPOTASSIUM BLOODon 12-16-2021 Potassium [Moles/Vol]3.3 mmol/LLow3.5-5.1The [facility] Comment on above:Order Comment: No: Do not add to previous drawPerformed By: #### 86688 ####[facility] [place] [address], USAALBUMIN BLOODon 89-07-3720Odqzukt [Mass/Vol]4.1 g/dLNormal3.5-5.7The [facility] SouthComment on above:Performed By: #### 97579, 31327, 99313 ####[facility] [place] [address], USABASIC METABOLIC PANELon 90-04-9681Phzsarp [Mass/Vol]9.1 mg/dLNormal 8.6-10.3The [facility] SouthComment on above:Order Comment: No: Do not add to previous drawPerformed By: #### 03513 ####[facility] [place] [address], USAChloride [Moles/Vol]82 mmol/LFju49-672Dpv [facility] SouthComment on above:Order Comment: No: Do not add to previous drawPerformed By: #### 81719 ####[facility] [place] [address], USACO2 [Moles/Vol] 38 mmol/YKfkz12-12Kkl [facility] SouthComment on above:Order Comment: No: Do not add to previous drawPerformed By: #### 09143 ####[facility] [place] [address], USACreatinine [Mass/Vol]1.94 mg/dLHigh0.70-1.30The [facility] SouthComment on above:Order Comment: No: Do not add to previous drawPerformed By: #### 94245 ####[facility] [place] [address], [place] EGFR39 ml/min/1.73sq mAbnormal>60The [facility] Medical CenterComment on above:Order Comment: No: Do not add to previous drawResult Comment: The [facility]'s estimated glomerularfiltration rate (eGFR) will no longer include consideration of race inits calculation. The National Kidney Foundation's eGFR Task Forcedeveloped new recommendations for the estimation of the glomerularfiltration rate in the [place] They recommend immediate implementation ofthe new equation refit without the race variable in all laboratoriesbecause the calculation does not include race. In addition to notincluding race inthe calculation and reporting, it included diversityin its development, and has acceptable performance characteristics andpotential consequences that do not disproportionately affect any onegroup of individuals. Performed By: #### 01687 ####[facility] [place] [address], USAGlucose [Mass/Vol]219 mg/zRMmiu79-629Nuj [facility] SouthComment on above:Order Comment: No: Do not add to previous drawPerformed By: #### 89714 ####[facility] [place] [address], USAPotassium [Moles/Vol]2.8 mmol/LLow3.5-5.1The [facility] SouthComment on above:Order Comment: No: Do not add to previous drawPerformed By: #### 80396 ####[facility] [place] [address], USASodium [Moles/Vol]132 mmol/LLow 136-145The [facility] SouthComment on above:Order Comment: No: Do not add to previous drawPerformed By: #### 55479 ####[facility] [place] [address], USAUrea nitrogen [Mass/Vol] 65 mg/dLHigh7-25The [facility] SouthComment on above:Order Comment: No: Do not add to previous drawPerformed By: #### 98066 ####[facility] [place] [address], USACalcium [Mass/Vol]9.1 mg/dLNormal8.6-10.3The [facility] SouthComment on above:Order Comment: No: Do not add to previous drawPerformed By: #### 17152 ####[facility] [place] [address], [place] Chloride [Moles/Vol]83 mmol/GNup88-540Jsl [facility] Comment on above:Order Comment: No: Do not add to previous drawPerformed By: #### 16289 ####[facility] [place] [address], USACO2 [Moles/Vol]38 mmol/XRuoe24-64Lxu [facility] SouthComment on above:Order Comment: No: Do not add to previous drawPerformed By: #### 05326 ####[facility] [place] [address], USACreatinine [Mass/Vol]1.74 mg/dLHigh0.70-1.30The [facility] SouthComment on above:Order Comment: No: Do not add to previous drawPerformed By: #### 83509 ####[facility] [facility] [place] [address], ZTFIKVC98 ml/min/1.73sq mAbnormal>60The [facility] SouthComment on above:Order Comment: No: Do not add to previous drawResult Comment: The [facility]'s estimated glomerularfiltration rate (eGFR) will no longer include consideration of race inits calculation. The National Kidney Foundation's eGFR Task Forcedeveloped new recommendations for the estimation of the glomerularfiltration rate in the [place] They recommend immediate implementation ofthe new equation refit without the race variable in all laboratoriesbecause the calculation does not include race. In addition to notincluding race inthe calculation and reporting, it included diversityin its development, and has acceptable performance characteristics andpotential consequences that do not disproportionately affect any onegroup of individuals.Performed By: #### 89897 ####[facility] [place] [address], [place] Glucose [Mass/Vol]253 mg/nXVhfa50-502Sik [facility] Comment on above:Order Comment: No: Do not add to previous drawPerformed By: #### 87664 ####[facility] [place] [address], USAPotassium [Moles/Vol]2.9 mmol/LLow3.5-5.1The [facility] SouthComment on above:Order Comment: No: Do not add to previous draw Performed By: #### 18873 ####[facility] [place] [address], USASodium [Moles/Vol]133 mmol/GCgk501-897Vua [facility] SouthComment on above:Order Comment: No: Do not add to previous drawPerformed By: #### 07562 ####[facility] [place] [address], USAUrea nitrogen [Mass/Vol]65 mg/dLHigh7-25The [facility] SouthComment on above:Order Comment: No: Do not add to previous drawPerformed By: #### 23731 ####[facility] [place] [address], USACalcium [Mass/Vol]9.2 mg/dLNormal 8.6-10.3The [facility] SouthComment on above:Order Comment: No: Do not add to previous drawPerformed By: #### 58827, 63377, 63253 ####[facility] [place] [address], [place] Chloride [Moles/Vol]80 mmol/XYlf17-514Qku [facility] Comment on above:Order Comment: No: Do not add to previous drawPerformed By: #### 30114, 24392, 51791 ####[facility] [place] [address], USACO2 [Moles/Vol]38 mmol/JYvfg81-33Fro [facility] SouthComment on above:Order Comment: No: Do not add to previous drawPerformed By: #### 85947, 05745, 80812 ####[facility] [place] [address], USACreatinine [Mass/Vol]1.39 mg/dL High0.70-1.30The [facility] SouthComment on above:Order Comment: No: Do not add to previous drawPerformed By: #### 95682, 31718, 78551 ####[facility] [place] [address], [place] EGFR58 ml/min/1.73sq mAbnormal>60The [facility] SouthComment on above:Order Comment: No: Do not add to previous drawResult Comment: The [facility]'s estimated glomerularfiltration rate (eGFR) will no longer include consideration of race inits calculation. The National Kidney Foundation's eGFR Task Forcedeveloped new recommendations for the estimation of the glomerularfiltration rate in the [place] They recommend immediate implementation ofthe new equation refit without the race variable in all laboratoriesbecause the calculation does not include race. In addition to notincluding race inthe calculation and reporting, it included diversityin its development, and has acceptable performance characteristics andpotential consequences that do not disproportionately affect any onegroup of individuals. Performed By: #### 20786, 83197, 60079 ####[facility] [place] [address], USAGlucose [Mass/Vol]286 mg/dLHigh 70-100The [facility] SouthComment on above:Order Comment: No: Do not add to previous drawPerformed By: #### 17513, 73243, 34507 ####[facility] [place] [address], [place] Potassium [Moles/Vol]3.1 mmol/LLow3.5-5.1The [facility] Comment on above:Order Comment: No: Do not add to previous drawPerformed By: #### 63156, 99821, 32780 ####[facility] [place] [address], [facility] CENTERSodium [Moles/Vol]133 mmol/RZus669-660Ezm [facility] SouthComment on above:Order Comment: No: Do not add to previous drawPerformed By: #### 52981, 41888, 57615 ####[facility] [place] [address], USAUrea nitrogen [Mass/Vol]62 mg/dL High7-25The [facility] SouthComment on above:Order Comment: No: Do not add to previous drawPerformed By: #### 93984, 43436, 34698 ####[facility] [place] [address], [facility] CBC COMPLETE BLOOD COUNTon 67-19-5186Nqpwixcwvth distribution width (RBC) [Ratio]14.2 %Koodmt04.5-15.0The [facility] SouthComment on above:Order Comment: No: Do not add to previous drawPerformed By: #### 86236 ####[facility] [place] [address], [facility] Hematocrit (Bld) [Volume fraction]36.3 %Low39.0-50.0The [facility] SouthComment on above:Order Comment: No: Do not add to previous draw Performed By: #### 70484 ####[facility] [place] [address], [facility] CENTERHemoglobin (Bld) [Mass/Vol]11.6 g/dLLow13.0-17.0The [facility] SouthComment on above:Order Comment: No: Do not add to previous drawPerformed By: #### 42049 ####[facility] [place] [address], [facility] (RBC) [Entitic mass]26.1 pgLow 27.0-33.0The [facility] SouthComment on above:Order Comment: No: Do not add to previous drawPerformed By: #### 52912 ####[facility] [place] [address], [facility]THC (RBC) [Mass/Vol]32.0 g/mFDvgjfk08.0-35.0The [facility] SouthComment on above:Order Comment: No: Do not add to previous drawPerformed By: #### 89579 ####[facility] [facility] [place] [address], [facility] [place] [facility]ANTV (RBC) [Entitic vol]81.8 fLLow82.0-98.0The [facility] SouthComment on above:Order Comment: No: Do not add to previous drawPerformed By: #### 80372 ####[facility] [facility] [place] [place] [address], [facility] Nucleated RBC/100 WBC (Bld) [Ratio]0 %Normal0-0The [facility] SouthComment on above:Order Comment: No: Do not add to previous drawPerformed By: #### [id number] ####[facility] [facility] [place] [address], [facility] MEDICAL CENTERPLAT [id number] 10*3/xMNren697-176Eal [facility] SouthComment on above:Order Comment: No: Do not add to previous drawPerformed By: #### [id number] ####[facility] [facility] [place] [address], [facility] MEDICAL CENTERRBC (Bld) [#/Vol]4.44 10*6/uLNormal4.20-5.70The [facility] SouthComment on above:Order Comment: No: Do not add to previous drawPerformed By: #### [id number] ####[facility] [place], [place] [address] [address], USAWBC (Bld) [#/Vol]14.85 10*3/uLHigh4.00-10.60 The [facility] SouthComment on above:Order Comment: No: Do not add to previous drawPerformed By: #### 58792 ####[facility] [place] [address], USAMAGNESIUM BLOODon 60-72-2127Twblsvqdu [Mass/Vol]2.1 mg/dLNormal1.9-2.7The [facility] SouthComment on above:Order Comment: No: Do not add to previous draw Performed By: #### 94177, 43238, 92441 ####[facility] [place] [address], [place] GLUCOSE LABon 12-15-2021 Glucose [Mass/Vol]235 mg/wRLrzs67-615Xku [facility] Comment on above:Performed By: #### 05535 ####[facility] [place] [address], USAGlucose [Mass/Vol]324 mg/dLHigh 70-100The [facility] SouthComment on above:Performed By: #### 06664 ####[facility] [place] [address], USAGlucose [Mass/Vol]312 mg/wKCkta11-790Dzm [facility] SouthComment on above:Performed By: #### 10048 ####[facility] [place] [address], USAGlucose [Mass/Vol]282 mg/dLHigh 70-100The [facility] SouthComment on above:Performed By: #### 51439 ####[facility] [place] [address], USABASIC METABOLIC PANELon 21-77-6101Mojjfft [Mass/Vol]9.2 mg/dLNormal 8.6-10.3The [facility] SouthComment on above:Order Comment: No: Do not add to previous drawPerformed By: #### 91227, 71822 ####[facility] [place] [address], USAChloride [Moles/Vol]86 mmol/QJys12-018Uvk [facility] SouthComment on above:Order Comment: No: Do not add to previous drawPerformed By: #### 34507, 29627 ####[facility] [place] [address], USACO2 [Moles/Vol]39 mmol/WVbjl81-27Prl [facility] SouthComment on above:Order Comment: No: Do not add to previous drawPerformed By: #### 47274, 28399 ####[facility] [place] [address], USACreatinine [Mass/Vol]1.38 mg/dLHigh0.70-1.30The [facility] SouthComment on above:Order Comment: No: Do not add to previous drawPerformed By: #### 70427, 75858 ####[facility] [place] [address], LWWBMRV65 ml/min/1.73sq m Abnormal>60The [facility] SouthComment on above:Order Comment: No: Do not add to previous drawResult Comment: The [facility]'s estimated glomerularfiltration rate (eGFR) will no longer include consideration of race inits calculation. The National Kidney Foundation's eGFR Task Forcedeveloped new recommendations for the estimation of the glomerularfiltration rate in the [place] They recommend immediate implementation ofthe new equation refit without the race variable in all laboratoriesbecause the calculation does not include race. In addition to notincluding race inthe calculation and reporting, it included diversityin its development, and has acceptable performance characteristics andpotential consequences that do not disproportionately affect any onegroup of individuals. Performed By: #### 67764, 28493 ####[facility] [place] [address], USAGlucose [Mass/Vol]195 mg/lAVdra56-403Ofl [facility] SouthComment on above:Order Comment: No: Do not add to previous drawPerformed By: #### 45846, 42535 ####[facility] [place] [address], USAPotassium [Moles/Vol]2.8 mmol/LLow3.5-5.1The [facility] SouthComment on above:Order Comment: No: Do not add to previous drawPerformed By: #### 35107, 95370 ####[facility] [address], [facility] Sodium [Moles/Vol]137 mmol/AOmxedt424-842Emg [facility] Comment on above:Order Comment: No: Do not add to previous drawPerformed By: #### 89300, 13764 ####[facility] [place] [address], USAUrea nitrogen [Mass/Vol]57 mg/dLHigh7-25The [facility] SouthComment on above:Order Comment: No: Do not add to previous drawPerformed By: #### 10500, 81463 ####[facility] [place] [address], USACBC COMPLETE BLOOD COUNTon 69-86-9520Hgvwfihfxxn distribution width (RBC) [Ratio]14.0 %Sophva24.5-15.0The [facility] SouthComment on above:Order Comment: No: Do not add to previous drawPerformed By: #### 41134 ####[facility] [place] [address], [facility] MEDICAL CENTERHematocrit (Bld) [Volume fraction] 37.4 %Low39.0-50.0The [facility] SouthComment on above:Order Comment: No: Do not add to previous drawPerformed By: #### 25922 ####[facility] [facility] [place] [address], [facility] MEDICAL CENTERHemoglobin (Bld) [Mass/Vol]11.8 g/dLLow13.0-17.0The [facility] SouthComment on above:Order Comment: No: Do not add to previous drawPerformed By: #### 16850 ####[facility] [place] [address], [facility] MCH (RBC) [Entitic mass]25.9 pgLow27.0-33.0The [facility] SouthComment on above:Order Comment: No: Do not add to previous drawPerformed By: #### 71303 ####[facility] [facility] [place] [address], [facility] MEDICAL CENTERMCHC (RBC) [Mass/Vol]31.6 g/dLLow32.0-35.0The [facility] SouthComment on above:Order Comment: No: Do not add to previous draw Performed By: #### 86126 ####[facility] [facility] [place] [address], [facility] MEDICAL CENTERMCV (RBC) [Entitic vol]82.2 sJRaukuc18.0-98.0The [facility] SouthComment on above:Order Comment: No: Do not add to previous drawPerformed By: #### 60505 ####[facility] [facility] [place] [address], [facility] MEDICAL CENTERNucleated RBC/100 WBC (Bld) [Ratio]0 %Normal0-0The [facility] SouthComment on above:Order Comment: No: Do not add to previous drawPerformed By: #### 72036 ####[facility] [place] [address].[place] [address], [facility] MEDICAL CENTERPLAT WHM010 10*3/fOLmxqbe492-847Fbx [facility] SouthComment on above: Order Comment: No: Do not add to previous drawPerformed By: #### 69623 ####[facility] [place] [address], [place] RBC (Bld) [#/Vol]4.55 10*6/uLNormal4.20-5.70The [facility] SouthComment on above:Order Comment: No: Do not add to previous drawPerformed By: #### 99866 ####[facility] [place] [address], USAWBC (Bld) [#/Vol]13.86 10*3/uLHigh4.00-10.60The [facility] SouthComment on above:Order Comment: No: Do not add to previous drawPerformed By: #### 48340 ####[facility] [place] [address], USAMAGNESIUM BLOODon 35-82-8570Fgldldscz [Mass/Vol]1.9 mg/dLNormal1.9-2.7The [facility] SouthComment on above:Order Comment: No: Do not add to previous drawPerformed By: #### 29404, 73177 ####[facility] [place] [address], [facility] MEDICAL CENTERPOC GLUCOSE LABon 62-60-5978Rmgkpde [Mass/Vol]271 mg/cZRopb95-859Rib [facility] SouthComment on above:Performed By: #### 26934 ####[facility] [place] [address], [place] Glucose [Mass/Vol]487 mg/vHInap23-708Kix [facility] Comment on above:Performed By: #### 91998 ####[facility] [place] [address], USAGlucose [Mass/Vol]258 mg/dLHigh 70-100The [facility] SouthComment on above:Performed By: #### 82697 ####[facility] [facility] [place] [address], [facility] MEDICAL CENTERGlucose [Mass/Vol]240 mg/dWOdnb69-682Cps [facility] SouthComcorewell health [facility] on above:Performed By: #### 74591 ####[facility] [facility] [place] [address], USAVENOUS BLOOD GASon 98-85-9476UEIQ LQQMXH95 mmol/LNormalThe [facility] SouthComcorewell health [facility] on above: Order Comment: RESULTS CHECKED AND CALLED. ACCURATELY READ BACK BY TO Eve OLMSTEAD RN.Result Comment: RESULTS CHECKED AND CALLED. ACCURATELY READ BACK BY TO Eve OLMSTEAD RN.Performed By: #### 33469 ####[address] [place] [address], [facility] MEDICAL CENTERHCO3 (Bld) [Moles/Vol]47 mmol/L NormalThe [facility] SouthComcorewell health [facility] on above:Order Comment: RESULTS CHECKED AND CALLED. ACCURATELY READ BACK BY TO Eve OLMSTEAD RN.Result Comment: RESULTS CHECKED AND CALLED. ACCURATELY READ BACK BY TO Eve OLMSTEAD RN. Performed By: #### 28642 ####[address] [address], [facility]OS MEDICAL CENTEROxygen (Bld) [Partial pressure]34 mm[Hg]Mjr26-44Qev [facility] SouthComcorewell [facility] on above:Order Comment: RESULTS CHECKED AND CALLED. ACCURATELY READ BACK BY TO Eve OLMSTEAD RN.Result Comment: RESULTS CHECKED AND CALLED. ACCURATELY READ BACK BY TO Eve OLMSTEAD RN.Performed By: #### 23314 ####[facility] [facility] [place] [address], USAOxygen saturation in Blood54.0 %Low65.0-75.0The [facility] SouthComcorewell [facility] on above:Order Comment: RESULTS CHECKED AND CALLED. ACCURATELY READ BACK BY TO Eve OLMSTEAD RN.Result Comment: RESULTS CHECKED AND CALLED. ACCURATELY READ BACK BY TO Eve OLMSTEAD RN.Performed By: #### 20981 ####[address] [place] [address], [place] LHH300 mmHgNormalThe [facility] SouthComment on above:Order Comment: RESULTS CHECKED AND CALLED. ACCURATELY READ BACK BY TO Eve OLMSTEAD RN. Result Comment: RESULTS CHECKED AND CALLED. ACCURATELY READ BACK BY TO Eve OLMSTEAD RN.Performed By: #### 86991 ####[facility] [place] [address], USApH (Bld)7.52 [pH]High7.31-7.41The [facility] SouthComment on above:Order Comment: RESULTS CHECKED AND CALLED. ACCURATELY READ BACK BY TO Eve OLMSTEAD RN.Result Comment: RESULTS CHECKED AND CALLED. ACCURATELY READ BACK BY TO Eve OLMSTEAD RN.Performed By: #### 95615 ####[facility] [address], [facility] BASIC METABOLIC PANELon 11-55-5844Fjasymj [Mass/Vol]9.3 mg/dLNormal8.6-10.3The [facility] SouthComment on above:Order Comment: No: Do not add to previous drawPerformed By: #### 54118, 73982 ####[facility] [place] [address], USAChloride [Moles/Vol]89 mmol/OAux20-868Jen [facility] SouthComment on above:Order Comment: No: Do not add to previous drawPerformed By: #### 97667, 04816 ####[facility] [place] [address], [place] CO2 [Moles/Vol]35 mmol/FIzsl97-37Wtp [facility] SouthComment on above:Order Comment: No: Do not add to previous drawPerformed By: #### 77359, 81305 ####[facility] [place] [address], USACreatinine [Mass/Vol]1.39 mg/dLHigh0.70-1.30The [facility] SouthComment on above:Order Comment: No: Do not add to previous draw Performed By: #### 36341, 36867 ####[facility] [place] [address], JBZSJOQ56 ml/min/1.73sq mAbnormal>60The [facility] SouthComment on above:Order Comment: No: Do not add to previous drawResult Comment: The [facility]'s estimated glomerularfiltration rate (eGFR) will no longer include consideration of race inits calculation. The National Kidney Foundation's eGFR Task Forcedeveloped new recommendations for the estimation of the glomerularfiltration rate in the [place] They recommend immediate implementation ofthe new equation refit without the race variable in all laboratoriesbecause the calculation does not include race. In addition to notincluding race inthe calculation and reporting, it included diversityin its development, and has acceptable performance characteristics andpotential consequences that do not disproportionately affect any onegroup of individuals.Performed By: #### 67350, 80717 ####[facility] [place] [address], USAGlucose [Mass/Vol]300 mg/dALheb30-896Bvp [facility] SouthComment on above:Order Comment: No: Do not add to previous drawPerformed By: #### 28830, 30210 ####[facility] [place] [address], USAPotassium [Moles/Vol]3.7 mmol/LNormal3.5-5.1The [facility] SouthComment on above:Order Comment: No: Do not add to previous drawPerformed By: #### 16401, 03044 ####[facility] [place] [address], USASodium [Moles/Vol]135 mmol/KPxb137-963Tkg [facility] SouthComment on above:Order Comment: No: Do not add to previous drawPerformed By: #### 96872, 53955 ####[facility] [facility] [place] [address], [place] Urea nitrogen [Mass/Vol]50 mg/dLHigh7-25The [facility] Comment on above:Order Comment: No: Do not add to previous drawPerformed By: #### 28374, 87861 ####[facility] [facility].[place] [id number], USACBC COMPLETE BLOOD COUNTon 75-60-6702Eiphvpsorsx distribution width (RBC) [Ratio]14.1 %Jpfedc46.5-15.0The [facility] SouthComment on above:Order Comment: No: Do not add to previous draw Performed By: #### 54886 ####[facility] [facility] [place] [address], [facility] MEDICAL CENTERHematocrit (Bld) [Volume fraction]37.9 %Low39.0-50.0The [facility] SouthComment on above:Order Comment: No: Do not add to previous drawPerformed By: #### 24180 ####[facility] [facility] [place] [address], [facility] CENTERHemoglobin (Bld) [Mass/Vol]12.3 g/dLLow13.0-17.0The [facility] SouthComment on above:Order Comment: No: Do not add to previous drawPerformed By: #### 37536 ####[facility] [place] [address].[place] [address], [facility] MEDICAL CENTERMCH (RBC) [Entitic mass]26.1 pgLow27.0-33.0The [facility] SouthComment on above:Order Comment: No: Do not add to previous drawPerformed By: #### 31636 ####[facility] [facility] [place] [address], [place] MCHC (RBC) [Mass/Vol]32.5 g/lOBenngl26.0-35.0The [facility] SouthComment on above:Order Comment: No: Do not add to previous drawPerformed By: #### 88828 ####[facility] [place] [address], [facility] MEDICAL CENTERMCV (RBC) [Entitic vol]80.5 fLLow82.0-98.0The [facility] SouthComment on above:Order Comment: No: Do not add to previous draw Performed By: #### 35977 ####[facility] [place] [address], USANucleated RBC/100 WBC (Bld) [Ratio]0 %Normal0-0The [facility] SouthComment on above:Order Comment: No: Do not add to previous drawPerformed By: #### 09660 ####[facility] [place] [address], USAPLAT CWZ061 10*3/xYRtcsjx259-582 The [facility] SouthComment on above:Order Comment: No: Do not add to previous drawPerformed By: #### 00545 ####[facility] [facility] [place] [address], [facility] MEDICAL CENTERRBC (Bld) [#/Vol]4.71 10*6/uLNormal4.20-5.70The [facility] SouthComment on above: Order Comment: No: Do not add to previous drawPerformed By: #### 09335 ####[facility] [facility] [place] [address], [facility] WBC (Bld) [#/Vol]11.29 10*3/uLHigh4.00-10.60The [facility] SouthComment on above:Order Comment: No: Do not add to previous drawPerformed By: #### 10488 ####[facility] [place] [address], [facility] CENTERMAGNESIUM BLOODon 62-86-3329Xmuycxwht [Mass/Vol]2.0 mg/dLNormal 1.9-2.7The [facility] SouthComment on above:Order Comment: No: Do not add to previous drawPerformed By: #### 34193, 47323 ####[facility] [place] [address], [place] GLUCOSE LABon 36-44-4825Uruitnv [Mass/Vol]172 mg/sIYwps67-095Uam [facility] SouthComment on above:Performed By: #### 96443 ####[facility] [place] [address], USAGlucose [Mass/Vol]252 mg/dLHigh 70-100The [facility] SouthComment on above:Performed By: #### 08062 ####[facility] [place] [address], USAGlucose [Mass/Vol]333 mg/gUIkke88-082Gqg [facility] SouthComment on above:Performed By: #### 46114 ####[facility] [place] [address], USAGlucose [Mass/Vol]287 mg/dLHigh 70-100The [facility] SouthComment on above:Performed By: #### 84483 ####[facility] [place] [address], USABASIC METABOLIC PANELon 55-54-0494Cztwyrr [Mass/Vol]8.9 mg/dLNormal 8.6-10.3The [facility] SouthComment on above:Order Comment: No: Do not add to previous drawPerformed By: #### 45492 ####[facility] [place] [address], USAChloride [Moles/Vol]92 mmol/JDuv93-550Qxj [facility] SouthComment on above:Order Comment: No: Do not add to previous drawPerformed By: #### 61002 ####[facility] [place] [address], USACO2 [Moles/Vol] 32 mmol/HQigz59-23Uqj [facility] SouthComment on above:Order Comment: No: Do not add to previous drawPerformed By: #### 98401 ####[facility] [address], USACreatinine [Mass/Vol]1.48 mg/dLHigh0.70-1.30The [facility] SouthComment on above:Order Comment: No: Do not add to previous drawPerformed By: #### 60871 ####[facility] [facility] [place] [address], [place] EGFR54 ml/min/1.73sq mAbnormal>60The [facility] SouthComment on above:Order Comment: No: Do not add to previous drawResult Comment: The [facility]'s estimated glomerularfiltration rate (eGFR) will no longer include consideration of race inits calculation. The National Kidney Foundation's eGFR Task Forcedeveloped new recommendations for the estimation of the glomerularfiltration rate in the [place] They recommend immediate implementation ofthe new equation refit without the race variable in all laboratoriesbecause the calculation does not include race. In addition to notincluding race inthe calculation and reporting, it included diversityin its development, and has acceptable performance characteristics andpotential consequences that do not disproportionately affect any onegroup of individuals. Performed By: #### 58050 ####[facility] [facility] [place] [address], USAGlucose [Mass/Vol]171 mg/qRAjog51-971Vxh [facility] SouthComment on above:Order Comment: No: Do not add to previous drawPerformed By: #### 23450 ####[facility] [facility] [place] [address], USAPotassium [Moles/Vol]3.0 mmol/LLow3.5-5.1The [facility] SouthComment on above:Order Comment: No: Do not add to previous drawPerformed By: #### 70162 ####[facility] [place] [address], [facility] CENTERSodium [Moles/Vol]135 mmol/LLow 136-145The [facility] SouthComment on above:Order Comment: No: Do not add to previous drawPerformed By: #### 68586 ####[facility] [place] [address], USAUrea nitrogen [Mass/Vol] 45 mg/dLHigh7-25The [facility] SouthComment on above:Order Comment: No: Do not add to previous drawPerformed By: #### 60860 ####[facility] [place] [address], [facility] MEDICAL CENTERCBC COMPLETE BLOOD COUNTon 10-71-9296Flgsuarvylq distribution width (RBC) [Ratio]13.8 %Normal 11.5-15.0The [facility] SouthComment on above:Order Comment: No: Do not add to previous drawPerformed By: #### [id number] ####[facility] [place] [address], [facility] MEDICAL CENTERHematocrit (Bld) [Volume fraction]36.2 %Low39.0-50.0The [facility] SouthComment on above:Order Comment: No: Do not add to previous drawPerformed By: #### 25430 ####[facility] [place] [address], [facility] Hemoglobin (Bld) [Mass/Vol]11.3 g/dLLow13.0-17.0The [facility] SouthComment on above:Order Comment: No: Do not add to previous drawPerformed By: #### 35342 ####[facility] [place] [address], [facility]ICAL CENTERMCH (RBC) [Entitic mass]25.7 pgLow27.0-33.0The [facility] SouthComment on above:Order Comment: No: Do not add to previous drawPerformed By: #### 88981 ####[facility] [place] [address], [facility] – DURANTHC (RBC) [Mass/Vol]31.2 g/dLLow32.0-35.0The [facility] SouthComment on above:Order Comment: No: Do not add to previous drawPerformed By: #### 86261 ####[facility] [place] [address], [facility] CENTERMCV (RBC) [Entitic vol]82.5 fL Xdjmlq94.0-98.0The [facility] SouthComment on above:Order Comment: No: Do not add to previous drawPerformed By: #### 60460 ####[facility] [id number], USANucleated RBC/100 WBC (Bld) [Ratio]0 %Normal0-0The [facility] [place] Comment on above:Order Comment: No: Do not add to previous drawPerformed By: #### [id number] ####[facility] [place] [address], USAPLAT [id number] 10*3/yFDhrjoj619-562Rtw [facility] SouthComment on above:Order Comment: No: Do not add to previous drawPerformed By: #### [id number] ####[facility] [place] [address], USARBC (Bld) [#/Vol]4.39 10*6/uLNormal4.20-5.70The [facility] SouthComment on above:Order Comment: No: Do not add to previous drawPerformed By: #### [id number] ####[facility] [place] [address], [facility]ICAL CENTERWBC (Bld) [#/Vol]12.04 10*3/uLHigh4.00-10.60 The [facility] SouthComment on above:Order Comment: No: Do not add to previous drawPerformed By: #### [id number] ####[facility] [place] [address], USACREATININE URINE RANDOMon 07-31-0502Zpacaqxygh (U) [Mass/Vol]37.0 mg/dLNormalThe [facility] SouthComment on above:Order Comment: No: Do not add to previous draw Result Comment: There are no established reference values for random urine specimensPerformed By: #### 44331, 73771, 43367, 98937 ####[facility] [place] [address], USAPOC GLUCOSE LABon 88-92-9896Bznhbcb [Mass/Vol]276 mg/zSGjox27-828Jlt [facility] SouthComment on above:Performed By: #### 66431 ####[facility] [place] [address], USAGlucose [Mass/Vol]411 mg/dLHigh 70-100The [facility] SouthComment on above:Performed By: #### 55381 ####[facility] [place] [address], USAGlucose [Mass/Vol]371 mg/zJZmei12-252Qll [facility] SouthComment on above:Order Comment: NOTE: Result CheckedPerformed By: #### 33361 ####[facility] [place] [address], USAGlucose [Mass/Vol]184 mg/eXPvng32-778Pbh [facility] SouthComment on above:Performed By: #### 80143 ####[facility] [place] [address], USAPOTASSIUM URon 12-12-2021 Potassium [Moles/Vol]42.0 mmol/LNormalThe [facility] Comment on above:Order Comment: No: Do not add to previous drawResult Comment: There are no established reference values for random urine specimensPerformed By: #### 26581, 12822, 41774, 78135 ####[facility] [place] [address], USASODIUM URINE RANDOMon 84-11-6054Wkrjqp (U) [Moles/Vol]64 mmol/LNormalThe [facility] SouthComment on above:Order Comment: No: Do not add to previous drawResult Comment: There are no established reference values for random urine specimensPerformed By: #### 24581, 16389, 84398, 85717 ####[facility] [place] [address], USAT PROT UR Navin 12-12-2021U TOTAL LERVSCL65.2 mg/dL NormalThe [facility] SouthComment on above:Order Comment: No: Do not add to previous drawResult Comment: There are no established reference values for random urine specimensPerformed By: #### 48937, 50988, 58845, 66439 ####[facility] [place] [address], [place] BASIC METABOLIC PANELon 18-72-4800Olmxvzz [Mass/Vol]8.8 mg/dLNormal8.6-10.3The [facility] SouthComment on above:Order Comment: No: Do not add to previous drawPerformed By: #### 39249 ####[facility] [place] [address], USAChloride [Moles/Vol]95 mmol/LLow 98-107The [facility] SouthComment on above:Order Comment: No: Do not add to previous drawPerformed By: #### 41500 ####[facility] [place] [address], USACO2 [Moles/Vol]32 mmol/L Uqyd04-22Qym [facility] SouthComment on above:Order Comment: No: Do not add to previous drawPerformed By: #### 64753 ####[facility] [place] [address], USACreatinine [Mass/Vol]1.05 mg/dLNormal0.70-1.30The [facility] SouthComment on above: Order Comment: No: Do not add to previous drawPerformed By: #### 16650 ####[facility] [place] [address], [place] GFR/1.73 sq M.predicted among non-blacks MDRD (S/P/Bld) [Vol rate/Area] mL/min/{1.73_m2}Normal>60The [facility] SouthComment on above:Order Comment: No: Do not add to previous drawResult Comment: The [facility]'s estimated glomerularfiltration rate (eGFR) will no longer include consideration of race inits calculation. The National Kidney Foundation's eGFR Task Forcedeveloped new recommendations for the estimation of the glomerularfiltration rate in the [place] They recommend immediate implementation ofthe new equation refit without the race variable in all laboratoriesbecause the calculation does not include race. In addition to notincluding race inthe calculation and reporting, it included diversityin its development, and has acceptable performance characteristics andpotential consequences that do not disproportionately affect any onegroup of individuals. Performed By: #### [id number] ####[facility] [place] [address], USAGlucose [Mass/Vol]202 mg/dQGtug82-511Qsd [facility] SouthComment on above:Order Comment: No: Do not add to previous drawPerformed By: #### 03724 ####[facility] [place] [address], USAPotassium [Moles/Vol]4.4 mmol/LNormal3.5-5.1 The [facility] SouthComment on above:Order Comment: No: Do not add to previous drawPerformed By: #### 73196 ####[facility] [place] [address], USASodium [Moles/Vol]134 mmol/TLic414-191Bye [facility] SouthComment on above:Order Comment: No: Do not add to previous drawPerformed By: #### 15649 ####[facility] [place] [address], USAUrea nitrogen [Mass/Vol]34 mg/dLHigh7-25The [facility] SouthComment on above:Order Comment: No: Do not add to previous drawPerformed By: #### 03868 ####[facility] [place] [address], [place] POC GLUCOSE LABon 41-59-5853Bvushkz [Mass/Vol]363 mg/eYIdut86-408Alq [facility] SouthComment on above:Performed By: #### 22499 ####[facility] [place] [address], USAGlucose [Mass/Vol]274 mg/oUPqwb61-175Cje [facility] SouthComment on above:Performed By: #### 53430 ####[facility] [place] [address], USAGlucose [Mass/Vol]218 mg/oUPvkp43-006Ykc [facility] SouthComment on above:Performed By: #### 82529 ####[facility] [place] [address], [place] Glucose [Mass/Vol]183 mg/nJZsjo14-612Zmv [facility] Comment on above:Performed By: #### 29120 ####[facility] [place] [address], USABASIC METABOLIC PANELon 12-10-2021 Calcium [Mass/Vol]8.7 mg/dLNormal8.6-10.3The [facility] Comment on above:Order Comment: No: Do not add to previous drawPerformed By: #### 87022, 84045 ####[facility] [place] [address], USAChloride [Moles/Vol]97 mmol/KUpu27-235Ecd [facility] SouthComment on above:Order Comment: No: Do not add to previous drawPerformed By: #### 81517, 26416 ####[facility] [place] [address], USACO2 [Moles/Vol]32 mmol/EMuju15-61Ffn [facility] SouthComment on above:Order Comment: No: Do not add to previous drawPerformed By: #### 76079, 42526 ####[facility] [place] [address], USACreatinine [Mass/Vol]1.14 mg/dLNormal0.70-1.30The [facility] SouthComment on above: Order Comment: No: Do not add to previous drawPerformed By: #### 94982, 92876 ####[facility] [place] [address], [place] GFR/1.73 sq M.predicted among non-blacks MDRD (S/P/Bld) [Vol rate/Area] mL/min/{1.73_m2}Normal>60The [facility] SouthComment on above:Order Comment: No: Do not add to previous drawResult Comment: The [facility]'s estimated glomerularfiltration rate (eGFR) will no longer include consideration of race inits calculation. The National Kidney Foundation's eGFR Task Forcedeveloped new recommendations for the estimation of the glomerularfiltration rate in the [place] They recommend immediate implementation ofthe new equation refit without the race variable in all laboratoriesbecause the calculation does not include race. In addition to notincluding race inthe calculation and reporting, it included diversityin its development, and has acceptable performance characteristics andpotential consequences that do not disproportionately affect any onegroup of individuals. Performed By: #### 43147, 87805 ####[facility] [place] [address], USAGlucose [Mass/Vol]153 mg/rMUwqx22-276Bdf [facility] SouthComment on above:Order Comment: No: Do not add to previous drawPerformed By: #### 47364, 04232 ####[facility] [place] [address], USAPotassium [Moles/Vol]3.8 mmol/LNormal3.5-5.1The [facility] SouthComment on above:Order Comment: No: Do not add to previous drawPerformed By: #### 07033, 50073 ####[facility] [facility] [place] [address], [place] Sodium [Moles/Vol]136 mmol/AOggoem395-707Qdq [facility] Comment on above:Order Comment: No: Do not add to previous drawPerformed By: #### 53913, 46745 ####[facility] [place] [address], USAUrea nitrogen [Mass/Vol]35 mg/dLHigh7-25The [facility] SouthComment on above:Order Comment: No: Do not add to previous drawPerformed By: #### 24073, 08882 ####[facility] [facility] [place] [address], USAMAGNESIUM BLOODon 12-10-2021 Magnesium [Mass/Vol]2.3 mg/dLNormal1.9-2.7The [facility] SouthComment on above:Order Comment: No: Do not add to previous drawPerformed By: #### 00972, 67271 ####[facility] [place] [address], USAPOC GLUCOSE LABon 32-36-1903Rfstvhj [Mass/Vol]286 mg/dL Strl26-473Yom [facility] SouthComment on above:Performed By: #### 98592 ####[facility] [place] [address] [address], USAGlucose [Mass/Vol]198 mg/vFBwnv13-455Voo [facility] SouthComment on above:Performed By: #### 81066 ####[facility] [place] [address], USAGlucose [Mass/Vol]270 mg/dLHigh 70-100The [facility] SouthComment on above:Performed By: #### 13436 ####[facility] [place] [address], USAGlucose [Mass/Vol]235 mg/tKBpwl92-932Nye [facility] SouthComment on above:Performed By: #### 41255 ####[place] [address] [place] [address], USABASIC METABOLIC PANELon 99-43-5795Bnauaoq [Mass/Vol]8.9 mg/dLNormal8.6-10.3The [facility] SouthComment on above:Order Comment: No: Do not add to previous draw Performed By: #### 69262 ####[facility] [place] [address], USAChloride [Moles/Vol]97 mmol/QHhk17-129Hgr [facility] SouthComment on above:Order Comment: No: Do not add to previous drawPerformed By: #### 66856 ####[facility] [place] [address], USACO2 [Moles/Vol]29 mmol/FGawggf94-47Xsv [facility] SouthComment on above:Order Comment: No: Do not add to previous drawPerformed By: #### 11360 ####[facility] [place] [address], USACreatinine [Mass/Vol]0.92 mg/dL Normal0.70-1.30The [facility] SouthComment on above:Order Comment: No: Do not add to previous drawPerformed By: #### 74974 ####[facility] [facility] [place] [address], USAGFR/1.73 sq M.predicted among non-blacks MDRD (S/P/Bld) [Vol rate/Area]mL/min/{1.73_m2} Normal>60The [facility] SouthComment on above:Order Comment: No: Do not add to previous drawResult Comment: The [facility]'s estimated glomerularfiltration rate (eGFR) will no longer include consideration of race inits calculation. The National Kidney Foundation's eGFR Task Forcedeveloped new recommendations for the estimation of the glomerularfiltration rate in the [place] They recommend immediate implementation ofthe new equation refit without the race variable in all laboratoriesbecause the calculation does not include race. In addition to notincluding race inthe calculation and reporting, it included diversityin its development, and has acceptable performance characteristics andpotential consequences that do not disproportionately affect any onegroup of individuals.Performed By: #### 20620 ####[facility] [facility] [place] [address], [place] Glucose [Mass/Vol]191 mg/bWSxjh97-559Pzd [facility] Comment on above:Order Comment: No: Do not add to previous drawPerformed By: #### 30945 ####[facility] [facility] [place] [address], USAPotassium [Moles/Vol]4.3 mmol/LNormal3.5-5.1The [facility] SouthComment on above:Order Comment: No: Do not add to previous draw Performed By: #### 30222 ####[facility] [facility] [place] [address], USASodium [Moles/Vol]134 mmol/BLox560-192Vin [facility] SouthComment on above:Order Comment: No: Do not add to previous drawPerformed By: #### 15945 ####[address] [place] [address], USAUrea nitrogen [Mass/Vol]34 mg/dLHigh7-25The [facility] SouthComment on above:Order Comment: No: Do not add to previous drawPerformed By: #### 50773 ####[facility] [facility] [place] [address], [facility] MEDICAL CENTERCBC COMPLETE BLOOD COUNTon 56-49-1115Ahoifoaqpyc distribution width (RBC) [Ratio]13.6 %Qcjkxf13.5-15.0The [facility] SouthComment on above:Order Comment: No: Do not add to previous drawPerformed By: #### 71986 ####[facility] [place] [address].[place] [address], [facility] MEDICAL CENTERHematocrit (Bld) [Volume fraction] 33.9 %Low39.0-50.0The [facility] SouthComment on above:Order Comment: No: Do not add to previous drawPerformed By: #### 21216 ####[facility] [facility] [place] [address], [facility] MEDICAL CENTERHemoglobin (Bld) [Mass/Vol]10.6 g/dLLow13.0-17.0The [facility] SouthComment on above:Order Comment: No: Do not add to previous drawPerformed By: #### 86711 ####[facility] [place] [address].[place] [address], [facility] MCH (RBC) [Entitic mass]26.2 pgLow27.0-33.0The [facility] SouthComment on above:Order Comment: No: Do not add to previous drawPerformed By: #### 01153 ####[facility] [place] [address].[place] [address], [facility] MEDICAL CENTERMCHC (RBC) [Mass/Vol]31.3 g/dLLow32.0-35.0The [facility] SouthComment on above:Order Comment: No: Do not add to previous draw Performed By: #### 52447 ####[facility] [place] [address], [facility]ICAL CENTERMCV (RBC) [Entitic vol]83.7 qDTsforv03.0-98.0The [facility] SouthComment on above:Order Comment: No: Do not add to previous drawPerformed By: #### 90687 ####[facility] [place] [address], USANucleated RBC/100 WBC (Bld) [Ratio]0 %Normal0-0The [facility] SouthComment on above:Order Comment: No: Do not add to previous drawPerformed By: #### 80799 ####[facility] [place] [address], [place]APLAT [id number] 10*3/qXDunziw570-216Hpn [facility] SouthComment on above: Order Comment: No: Do not add to previous drawPerformed By: #### 28466 ####[facility] [facility] [place] [address], [facility] RBC (Bld) [#/Vol]4.05 10*6/uLLow4.20-5.70The [facility] Comment on above:Order Comment: No: Do not add to previous drawPerformed By: #### 16809 ####[facility] [facility] [place] [address], [facility] CENTERWBC (Bld) [#/Vol]8.01 10*3/uLNormal4.00-10.60The [facility] SouthComment on above:Order Comment: No: Do not add to previous draw Performed By: #### 08480 ####[facility] [facility] [place] [address], [facility]ICAL CENTERPOC GLUCOSE LABon 15-04-6938Ofpsqmz [Mass/Vol]343 mg/dL Focd26-497Mce [facility] SouthComment on above:Performed By: #### 75901 ####[facility] [place] [address], USAGlucose [Mass/Vol]153 mg/vVFfgh79-902Vcn [facility] SouthComment on above:Performed By: #### 41849 ####[facility] [place] [address], USAGlucose [Mass/Vol]236 mg/dLHigh 70-100The [facility] SouthComment on above:Performed By: #### 03650 ####[facility] [place] [address], USAGlucose [Mass/Vol]204 mg/nAXnsv89-589Pqz [facility] SouthComment on above:Performed By: #### 58714 ####[facility] [place] [address], USAPOC GLUCOSE LABon 12-08-2021 Glucose [Mass/Vol]294 mg/cVRhqh54-331Rio [facility] Comment on above:Performed By: #### 92798 ####[facility] [place] [address], USAGlucose [Mass/Vol]193 mg/dLHigh 70-100The [facility] SouthComment on above:Performed By: #### 68275 ####[facility] [place] [address], USAGlucose [Mass/Vol]255 mg/wCMulj43-966Wxf [facility] SouthComment on above:Performed By: #### 71133 ####[facility] [place] [address], USAGlucose [Mass/Vol]181 mg/dLHigh 70-100The [facility] SouthComment on above:Performed By: #### 58374 ####[facility] [place] [address], USABASIC METABOLIC PANELon 72-63-7092Oinpcby [Mass/Vol]9.3 mg/dLNormal 8.6-10.3The [facility] SouthComment on above:Order Comment: No: Do not add to previous drawPerformed By: #### 59478 ####[facility] [place] [address], USAChloride [Moles/Vol]94 mmol/GDvg52-459Opv [facility] SouthComment on above:Order Comment: No: Do not add to previous drawPerformed By: #### 66981 ####[facility] [place] [address], USACO2 [Moles/Vol] 38 mmol/PSvbo55-04Ibv [facility] SouthComment on above:Order Comment: No: Do not add to previous drawPerformed By: #### 00570 ####[facility] [place] [address], USACreatinine [Mass/Vol]1.05 mg/dLNormal0.70-1.30The [facility] Comment on above:Order Comment: No: Do not add to previous drawPerformed By: #### 61828 ####[facility] [place] [address], USAGFR/1.73 sq M.predicted among non-blacks MDRD (S/P/Bld) [Vol rate/Area]mL/min/{1.73_m2}Normal>60The [facility] Comment on above:Order Comment: No: Do not add to previous drawResult Comment: The [facility]'s estimated glomerularfiltration rate (eGFR) will no longer include consideration of race inits calculation. The National Kidney Foundation's eGFR Task Forcedeveloped new recommendations for the estimation of the glomerularfiltration rate in the [place] They recommend immediate implementation ofthe new equation refit without the race variable in all laboratoriesbecause the calculation does not include race. In addition to notincluding race inthe calculation and reporting, it included diversityin its development, and has acceptable performance characteristics andpotential consequences that do not disproportionately affect any onegroup of individuals. Performed By: #### 41238 ####[facility] [facility] [address], [facility] MEDICAL CENTERGlucose [Mass/Vol]196 mg/lZZkem42-504Vzw [facility] SouthComment on above:Order Comment: No: Do not add to previous drawPerformed By: #### 52614 ####[facility] [facility] [place] [address], USAPotassium [Moles/Vol]4.2 mmol/LNormal3.5-5.1 The [facility] SouthComment on above:Order Comment: No: Do not add to previous drawPerformed By: #### 95214 ####[place] [address] [facility] [place] [place] [address], USASodium [Moles/Vol]137 mmol/WXosdla262-444Ifa [facility] SouthComment on above:Order Comment: No: Do not add to previous drawPerformed By: #### 02463 ####[address] [place] [address], USAUrea nitrogen [Mass/Vol]36 mg/dLHigh7-25The [facility] SouthComment on above:Order Comment: No: Do not add to previous drawPerformed By: #### 48930 ####[address] [place] [address], [place] CBC W/DIFFon 53-65-4906QMY IMM GRANS0.1 10*3/uLNormal0.0-0.2The [facility] SouthComment on above:Order Comment: Nurse drawPerformed By: #### [id number] ####[address] [place] [address], [facility] CENTERABS NEUTROPHILS4.9 10*3/uLNormal1.6-7.6The [facility] SouthComment on above:Order Comment: Nurse drawPerformed By: #### 37278 ####[facility] [place] [address], [facility] Basophils (Bld) [#/Vol]0.1 10*3/uLNormal0.0-0.2The [facility] SouthComment on above:Order Comment: Nurse drawPerformed By: #### 86023 ####[facility] [place] [address], [facility] Basophils/100 WBC (Bld)1.0 %Normal0.0-1.0The [facility] Comment on above:Order Comment: Nurse drawPerformed By: #### 77633 ####[facility] [place] [address], [facility] Eosinophils (Bld) [#/Vol]0.3 10*3/uLNormal0.0-0.5The [facility] SouthComment on above:Order Comment: Nurse drawPerformed By: #### [id number] ####[facility] [place] [address], [facility] Eosinophils/100 WBC (Bld)3.1 %Normal0.0-6.0The [facility] SouthComment on above:Order Comment: Nurse drawPerformed By: #### 45622 ####[facility] [place] [address], [facility] Erythrocyte distribution width (RBC) [Ratio]13.5 %Axryuv96.5-15.0The [facility] SouthComment on above:Order Comment: Nurse drawPerformed By: #### [id number] ####[facility] [place] [address], [facility] CENTERHematocrit (Bld) [Volume fraction]33.4 %Low39.0-50.0The [facility] SouthComment on above:Order Comment: Nurse drawPerformed By: #### [id number] ####[facility] [place] [address], [facility] CENTERHemoglobin (Bld) [Mass/Vol]10.5 g/dLLow13.0-17.0The [facility] SouthComment on above:Order Comment: Nurse drawPerformed By: #### [id number] ####[facility] [facility] [place] [address], [facility] CENTERIMMATURE GRANS1.4 %High0.0-1.0The [facility] Comment on above:Order Comment: Nurse drawPerformed By: #### [id number] ####[facility] [facility] [place] [address], [facility] Lymphocytes (Bld) [#/Vol]2.3 10*3/uLNormal1.2-4.0The [facility] SouthComment on above:Order Comment: Nurse drawPerformed By: #### [id number] ####[facility] [facility] [place] [address], [facility] Lymphocytes/100 WBC (Bld)27.6 %Sdayrh14.0-45.0The [facility] SouthComment on above:Order Comment: Nurse drawPerformed By: #### [id number] ####[facility] [facility] [place] [address], [facility] MCH (RBC) [Entitic mass]26.1 pgLow27.0-33.0The [facility] SouthComment on above:Order Comment: Nurse drawPerformed By: #### [id number] ####[facility] [facility] [place] [address], [facility] MCHC (RBC) [Mass/Vol]31.4 g/dLLow32.0-35.0The [facility] SouthComment on above:Order Comment: Nurse drawPerformed By: #### [id number] ####[facility] [place] [address], [place] MCV (RBC) [Entitic vol]82.9 eYKmmbyl76.0-98.0The [facility] SouthComment on above:Order Comment: Nurse drawPerformed By: #### [id number] ####[facility] [place] [address], [facility] Monocytes (Bld) [#/Vol]0.7 10*3/uLNormal0.1-1.0The [facility] SouthComment on above:Order Comment: Nurse drawPerformed By: #### [id number] ####[facility] [facility] [place] [address], [place] MONOS8.2 %Normal5.0-12.0The [facility] SouthComment on above: Order Comment: Nurse drawPerformed By: #### 75986 ####[facility] [facility] [place] [address], [facility] CENTERNeutrophils/100 WBC (Bld) 58.7 %Vkeifu07.0-72.0The [facility] SouthComment on above: Order Comment: Nurse drawPerformed By: #### [id number] ####[facility] [facility] [place] [address], [facility] CENTERNucleated RBC/100 WBC (Bld) [Ratio]0 %Normal0-0The [facility] SouthComment on above:Order Comment: Nurse drawPerformed By: #### [id number] ####[facility] [facility] [place] [place] [address], USAPLAT [id number] 10*3/uLHigh 150-400The [facility] SouthComment on above:Order Comment: Nurse drawPerformed By: #### [id number] ####[facility] [facility] [place] [place] [address], USARBC (Bld) [#/Vol]4.03 10*6/uLLow4.20-5.70The [facility] SouthComment on above:Order Comment: Nurse draw Performed By: #### [id number] ####[facility] [place] [address], USAWBC (Bld) [#/Vol]8.29 10*3/uLNormal4.00-10.60The [facility] SouthComment on above:Order Comment: Nurse draw Performed By: #### 92732 ####[facility] [place] [address], [place]AP[place] GLUCOSE LABon 51-41-6246Yazkvpv [Mass/Vol]334 mg/dL Vjzq22-209Zpj [facility] SouthComment on above:Performed By: #### 89286 ####[facility] [place] [address], USAGlucose [Mass/Vol]204 mg/nDQnex95-817Nuw [facility] SouthComment on above:Performed By: #### 11130 ####[facility] [place] [address], USAGlucose [Mass/Vol]222 mg/dLHigh 70-100The [facility] SouthComment on above:Performed By: #### 78555 ####[facility] [place] [address], USAGlucose [Mass/Vol]205 mg/aZBnkr65-788Len [facility] SouthComment on above:Performed By: #### [id number] ####[facility] [place] [address], USAURINALYSIS REFLEXon 12-07-2021 Appearance (U)CLEARNormalCLEARThe [facility] SouthComment on above:Order Comment: No: Do not add to previous drawCriteria for reflexing a culture was not met. Please call the lab [id number] within 24 hours of collection time if culture is neededPerformed By: #### [id number] ####[facility] [place] [address], USABilirubin Ql (U)Negative NormalNEGATIVEThe [facility] SouthComment on above:Order Comment: No: Do not add to previous drawCriteria for reflexing a culture was not met. Please call the lab [id number] within 24 hours of collection time if culture is neededPerformed By: #### [id number] ####[facility] [place] [address], USABUDDING YEASTOCCAbnormalNONE SEENThe [facility] SouthComment on above:Order Comment: No: Do not add to previous drawCriteria for reflexing a culture was not met. Please call the lab [id number] within 24 hours of collection time if culture is neededPerformed By: #### [id number] ####[facility] [place] [address], USAColor (U)YELLOWNormalYELLOWThe [facility] Comment on above:Order Comment: No: Do not add to previous drawCriteria for reflexing a culture was not met. Please call the lab [id number] within 24 hours of collection time if culture is neededPerformed By: #### [id number] ####[facility] [place] [address], USAEPISOCCNormal FEW,OCC,NONE SEENThe [facility] SouthComment on above:Order Comment: No: Do not add to previous drawCriteria for reflexing a culture was not met. Please call the lab [id number] within 24 hours of collection time if culture is neededPerformed By: #### [id number] ####[facility] [place] [address], USAGlucose Ql (U)>=1000AbnormalNEGATIVEThe [facility] SouthComment on above:Order Comment: No: Do not add to previous drawCriteria for reflexing a culture was not met. Please call the lab [id number] within 24 hours of collection time if culture is neededPerformed By: #### 64339 ####[facility] [place] [address], USAHemoglobin Ql (U)TRACEAbnormalNEGATIVEThe [facility] SouthComment on above:Order Comment: No: Do not add to previous drawCriteria for reflexing a culture was not met. Please call the lab [id number] within 24 hours of collection time if culture is neededPerformed By: #### 57246 ####[facility] [place] [address], [place] KETONENegativeNormalNEGATIVEThe [facility] SouthComment on above:Order Comment: No: Do not add to previous drawCriteria for reflexing a culture was not met. Please call the lab [id number] within 24 hours of collection time if culture is neededPerformed By: #### 99748 ####[address] [place] [address], USALEUK ESTERNegativeNormal NEGATIVEThe [facility] SouthComment on above:Order Comment: No: Do not add to previous drawCriteria for reflexing a culture was not met. Please call the lab [id number] within 24 hours of collection time if culture is neededPerformed By: #### [id number] ####[address] [place] [address], USANitrite Ql (U)NegativeNormalNEGATIVEThe [facility] SouthComment on above:Order Comment: No: Do not add to previous drawCriteria for reflexing a culture was not met. Please call the lab [id number] within 24 hours of collection time if culture is neededPerformed By: #### 46710 ####[address] [place] [address], USApH (U)6.0 [pH]Normal5.0-8.0The [facility] Comment on above:Order Comment: No: Do not add to previous drawCriteria for reflexing a culture was not met. Please call the lab [id number] within 24 hours of collection time if culture is neededPerformed By: #### 70390 ####[facility] [facility] [place] [address], [facility]ENTERProtein Ql (U) NegativeNormalNEGATIVEThe [facility] SouthComment on above: Order Comment: No: Do not add to previous drawCriteria for reflexing a culture was not met. Please call the lab [id number] within 24 hours of collection time if culture is neededPerformed By: #### 73498 ####[facility] [facility] [place] [address], USARBC0-2AbnormalNONE SEENThe [facility] SouthComment on above:Order Comment: No: Do not add to previous drawCriteria for reflexing a culture was not met. Please call the lab [id number] within 24 hours of collection time if culture is neededPerformed By: #### 89584 ####[address] [place] [address], [facility] CENTERSPEC GRAV1.100Gyw2.015-1.020The [facility] SouthComment on above:Order Comment: No: Do not add to previous drawCriteria for reflexing a culture was not met. Please call the lab [id number] within 24 hours of collection time if culture is neededPerformed By: #### 87126 ####[address] [place] [address], [facility] CENTERWBC UANONE SEEN NormalNONE SEENThe [facility] SouthComment on above:Order Comment: No: Do not add to previous drawCriteria for reflexing a culture was not met. Please call the lab [id number] within 24 hours of collection time if culture is neededPerformed By: #### [id number] ####[address] [place] [address], [facility]*TISSUE CULTUREon 12-06-2021*TISSUE CULTURE NormalThe [facility] SouthComment on above:Performed By: #### 84427 ####[address] [place] [address], [facility] CENTERBASIC METABOLIC PANELon 94-67-4389Mzgeean [Mass/Vol]8.9 mg/dLNormal 8.6-10.3The [facility] SouthComment on above:Order Comment: No: Do not add to previous drawPerformed By: #### [id number] ####[facility] [place] [address], USAChloride [Moles/Vol]96 mmol/ZFkw03-175Sfq [facility] SouthComment on above:Order Comment: No: Do not add to previous drawPerformed By: #### [id number] ####[facility] [place] [address], USACO2 [Moles/Vol] 36 mmol/JPhfp38-61Xpt [facility] SouthComment on above:Order Comment: No: Do not add to previous drawPerformed By: #### 39100 ####[facility] [place] [address], USACreatinine [Mass/Vol]1.00 mg/dLNormal0.70-1.30The [facility] Comment on above:Order Comment: No: Do not add to previous drawPerformed By: #### 53555 ####[facility] [place] [address], USAGFR/1.73 sq M.predicted among non-blacks MDRD (S/P/Bld) [Vol rate/Area]mL/min/{1.73_m2}Normal>60The [facility] Comment on above:Order Comment: No: Do not add to previous drawResult Comment: The [facility]'s estimated glomerularfiltration rate (eGFR) will no longer include consideration of race inits calculation. The National Kidney Foundation's eGFR Task Forcedeveloped new recommendations for the estimation of the glomerularfiltration rate in the [place] They recommend immediate implementation ofthe new equation refit without the race variable in all laboratoriesbecause the calculation does not include race. In addition to notincluding race inthe calculation and reporting, it included diversityin its development, and has acceptable performance characteristics andpotential consequences that do not disproportionately affect any onegroup of individuals. Performed By: #### [id number] ####[facility] [place] [address], USAGlucose [Mass/Vol]163 mg/gUEkev85-203Qdv [facility] SouthComment on above:Order Comment: No: Do not add to previous drawPerformed By: #### 22567 ####[facility] [place] [address], USAPotassium [Moles/Vol]3.9 mmol/LNormal3.5-5.1 The [facility] SouthComment on above:Order Comment: No: Do not add to previous drawPerformed By: #### 77397 ####[facility] [place] [address], USASodium [Moles/Vol]139 mmol/GSojyqc745-465Lcx [facility] SouthComment on above:Order Comment: No: Do not add to previous drawPerformed By: #### 19997 ####[facility] [facility] [place] [address], USAUrea nitrogen [Mass/Vol]40 mg/dLHigh7-25The [facility] SouthComment on above:Order Comment: No: Do not add to previous drawPerformed By: #### 69652 ####[facility] [facility] [place] [address], [place] CBC COMPLETE BLOOD COUNTon 60-42-1798Qaakgghwelu distribution width (RBC) [Ratio]13.6 %Ejxryc88.5-15.0The [facility] SouthComment on above:Order Comment: No: Do not add to previous drawPer rn Beverly nurse draw Performed By: #### [id number] ####[facility] [facility] [place] [address], USAHematocrit (Bld) [Volume fraction]32.9 %Low39.0-50.0The [facility] SouthComment on above:Order Comment: No: Do not add to previous drawPer rn Beverly nurse drawPerformed By: #### 33785 ####[facility] [place] [address], [facility] Hemoglobin (Bld) [Mass/Vol]10.4 g/dLLow13.0-17.0The [facility] SouthComment on above:Order Comment: No: Do not add to previous drawPer rn Beverly nurse drawPerformed By: #### [id number] ####[facility] [facility] [place] [place] [address], [facility] CENTERMCH (RBC) [Entitic mass]26.5 pgLow 27.0-33.0The [facility] SouthComment on above:Order Comment: No: Do not add to previous drawPer mike Paul nurse drawPerformed By: #### 67256 ####[facility] [place] [address], [facility] MCHC (RBC) [Mass/Vol]31.6 g/dLLow32.0-35.0The [facility] SouthComment on above:Order Comment: No: Do not add to previous drawPer mike Paul nurse drawPerformed By: #### 56431 ####[facility] [facility] [place] [place] [address], [facility] CENTERMCV (RBC) [Entitic vol]83.7 fL Pwnmwq06.0-98.0The [facility] SouthComment on above:Order Comment: No: Do not add to previous drawPer mike Paul nurse drawPerformed By: #### [id number] ####[facility] [facility] [place] [place] [address], [facility] CENTERNucleated RBC/100 WBC (Bld) [Ratio]0 %Normal0-0The [facility] SouthComment on above:Order Comment: No: Do not add to previous drawPer rn Beverly nurse drawPerformed By: #### 26011 ####[facility] [place] [address], [facility] CENTERPLAT OCO306 10*3/uLNormal 150-400The [facility] SouthComment on above:Order Comment: No: Do not add to previous drawPer rn Beverly nurse drawPerformed By: #### 68727 ####[facility] [facility] [place] [address], [facility] RBC (Bld) [#/Vol]3.93 10*6/uLLow4.20-5.70The [facility] Comment on above:Order Comment: No: Do not add to previous drawPer rn Beverly nurse drawPerformed By: #### 61149 ####[facility] [place] [address].[place] [address], [facility] CENTERWBC (Bld) [#/Vol]8.01 10*3/uLNormal4.00-10.60 The [facility] SouthComment on above:Order Comment: No: Do not add to previous drawPer rn Beverly nurse drawPerformed By: #### 60577 ####[facility] [place] [address].[place] [address], [facility] POC GLUCOSE LABon 01-20-7550Hqdcevq [Mass/Vol]259 mg/wXDybe15-569Dmo [facility] SouthComment on above:Performed By: #### 62647 ####[facility] [place] [address], [facility] CENTERGlucose [Mass/Vol]175 mg/uATncj78-531Qcv [facility] SouthComment on above:Performed By: #### 51053 ####[facility] [place] [address].[place] [address], [facility] CENTERGlucose [Mass/Vol]174 mg/aKMzeb79-523Vis [facility] SouthComment on above:Performed By: #### 29851 ####[facility] [place], [place] [address], [place] [address], [place] Glucose [Mass/Vol]187 mg/cUYhsi59-798Cpe [facility] Comment on above:Performed By: #### 50436 ####[facility] [place] [address], USAGlucose [Mass/Vol]221 mg/dLHigh 70-100The [facility] SouthComment on above:Performed By: #### 37033 ####[facility] [place] [address], USAPOC GLUCOSE LABon 12-14-4041Wddbgsn [Mass/Vol]247 mg/nYVmft69-226Upr [facility] SouthComment on above:Performed By: #### 12843 ####[address] [place] [address], [facility] Glucose [Mass/Vol]199 mg/gPJcnu92-726Tqr [facility] Comment on above:Performed By: #### 95398 ####[facility] [place] [address], [facility] CENTERGlucose [Mass/Vol]146 mg/dLHigh 70-100The [facility] SouthComment on above:Performed By: #### 58639 ####[facility] [facility] [place] [address], [facility] CENTERVANCOMYCIN TROUGHon 65-14-3728TXCPMBOZGP TROU12.5 mcg/mLNormal5.0-20.0 The [facility] SouthComment on above:Performed By: #### 01127 ####[facility] [facility] [place] [address], [facility] BASIC METABOLIC PANELon 46-36-2203Szqhlqk [Mass/Vol]8.6 mg/dLNormal8.6-10.3The [facility] SouthComment on above:Order Comment: No: Do not add to previous drawPerformed By: #### 39647, 80909, 03930 ####[facility] [place] [address], USAChloride [Moles/Vol]98 mmol/AYcqans61-258Qyi [facility] SouthComment on above:Order Comment: No: Do not add to previous drawPerformed By: #### 46085, 07689, 64301 ####[facility] [place] [address], USACO2 [Moles/Vol]33 mmol/CMowv93-57Vwv [facility] SouthComment on above:Order Comment: No: Do not add to previous drawPerformed By: #### 54507, 53117, 33005 ####[facility] [place] [address], USACreatinine [Mass/Vol]0.86 mg/dLNormal 0.70-1.30The [facility] SouthComment on above:Order Comment: No: Do not add to previous drawPerformed By: #### 46976, 48127, 38185 ####[facility] [place] [address], [place] GFR/1.73 sq M.predicted among non-blacks MDRD (S/P/Bld) [Vol rate/Area] mL/min/{1.73_m2}Normal>60The [facility] SouthComment on above:Order Comment: No: Do not add to previous drawResult Comment: The [facility]'s estimated glomerularfiltration rate (eGFR) will no longer include consideration of race inits calculation. The National Kidney Foundation's eGFR Task Forcedeveloped new recommendations for the estimation of the glomerularfiltration rate in the [place] They recommend immediate implementation ofthe new equation refit without the race variable in all laboratoriesbecause the calculation does not include race. In addition to notincluding race inthe calculation and reporting, it included diversityin its development, and has acceptable performance characteristics andpotential consequences that do not disproportionately affect any onegroup of individuals. Performed By: #### 21868, 69726, 60960 ####[facility] [place] [address], USAGlucose [Mass/Vol]141 mg/dLHigh 70-100The [facility] SouthComment on above:Order Comment: No: Do not add to previous drawPerformed By: #### 45791, 66214, 49161 ####[facility] [place] [address], [place] Potassium [Moles/Vol]3.7 mmol/LNormal3.5-5.1The [facility] SouthComment on above:Order Comment: No: Do not add to previous drawPerformed By: #### 24527, 65007, 14226 ####[facility] [place] [address], USASodium [Moles/Vol]138 mmol/NJmnfbm106-041Ahs [facility] SouthComment on above:Order Comment: No: Do not add to previous drawPerformed By: #### 26693, 09119, 58060 ####[facility] [place] [address], USAUrea nitrogen [Mass/Vol]27 mg/dLHigh7-25The [facility] SouthComment on above:Order Comment: No: Do not add to previous drawPerformed By: #### 11908, 89214, 96091 ####[facility] [place] [address], [facility] CENTERCBC W/DIFFon 59-36-1453PDO IMM GRANS0.0 10*3/uLNormal0.0-0.2The [facility] SouthComment on above:Order Comment: Pt has midline, acnt find RNPerformed By: #### 71062 ####[facility] [place] [address], USAABS NEUTROPHILS3.9 10*3/uLNormal 1.6-7.6The [facility] SouthComment on above:Order Comment: Pt has midline, acnt find RNPerformed By: #### 27825 ####[facility] [place] [address], USABasophils (Bld) [#/Vol]0.1 10*3/uLNormal0.0-0.2The [facility] SouthComment on above: Order Comment: Pt has midline, acnt find RNPerformed By: #### 59355 ####[facility] [place] [address], [place] Basophils/100 WBC (Bld)0.8 %Normal0.0-1.0The [facility] Comment on above:Order Comment: Pt has midline, acnt find RNPerformed By: #### 96711 ####[facility] [place] [address], USAEosinophils (Bld) [#/Vol]0.3 10*3/uLNormal0.0-0.5The [facility] SouthComment on above:Order Comment: Pt has midline, acnt find RNPerformed By: #### 61302 ####[facility] [place] [address], USAEosinophils/100 WBC (Bld)4.6 %Normal0.0-6.0The [facility] SouthComment on above:Order Comment: Pt has midline, acnt find RNPerformed By: #### 02958 ####[facility] [place] [address], USAErythrocyte distribution width (RBC) [Ratio]13.9 %Prxmiz01.5-15.0The [facility] SouthComment on above:Order Comment: Pt has midline, acnt find RNPerformed By: #### 46885 ####[facility] [place] [address], [place] Hematocrit (Bld) [Volume fraction]31.7 %Low39.0-50.0The [facility] SouthComment on above:Order Comment: Pt has midline, acnt find RN Performed By: #### 80006 ####[facility] [place] [address], [facility]ICAL CENTERHemoglobin (Bld) [Mass/Vol]9.9 g/dLLow13.0-17.0The [facility] SouthComment on above:Order Comment: Pt has midline, acnt find RNPerformed By: #### 86837 ####[facility] [place] [address], [facility] MEDICAL CENTERIMMATURE GRANS0.5 %Normal0.0-1.0 The [facility] SouthComment on above:Order Comment: Pt has midline, acnt find RNPerformed By: #### 74334 ####[facility] [place] [address], USALymphocytes (Bld) [#/Vol]1.5 10*3/uLNormal1.2-4.0The [facility] SouthComment on above: Order Comment: Pt has midline, acnt find RNPerformed By: #### 78298 ####[facility] [place] [address], [place] Lymphocytes/100 WBC (Bld)23.5 %Qlvahy93.0-45.0The [facility] SouthComment on above:Order Comment: Pt has midline, acnt find RNPerformed By: #### 97560 ####[facility] [facility] [place] [address], [facility]ICAL CENTERMCH (RBC) [Entitic mass]26.3 pgLow27.0-33.0The [facility] SouthComment on above:Order Comment: Pt has midline, acnt find RN Performed By: #### 23827 ####[facility] [place] [address], [facility]ICAL CENTERMCHC (RBC) [Mass/Vol]31.2 g/dLLow32.0-35.0The [facility] SouthComment on above:Order Comment: Pt has midline, acnt find RNPerformed By: #### 10622 ####[facility] [place] [address], [facility] CENTERMCV (RBC) [Entitic vol]84.3 fL Fsdsbi80.0-98.0The [facility] SouthComment on above:Order Comment: Pt has midline, acnt find RNPerformed By: #### 21919 ####[facility] [place] [address], [facility] CENTERMonocytes (Bld) [#/Vol]0.6 10*3/uLNormal0.1-1.0The [facility] SouthComment on above:Order Comment: Pt has midline, acnt find RNPerformed By: #### 87551 ####[facility] [facility] [place] [address], [facility] MONOS8.7 %Normal5.0-12.0The [facility] SouthComment on above: Order Comment: Pt has midline, acnt find RNPerformed By: #### 38470 ####[facility] [place] [address], [facility] Neutrophils/100 WBC (Bld)61.9 %Gwvacc64.0-72.0The [facility] SouthComment on above:Order Comment: Pt has midline, acnt find RNPerformed By: #### 96307 ####[facility] [facility] [place] [place] [address], [facility] MEDICAL CENTERNucleated RBC/100 WBC (Bld) [Ratio]0 %Normal0-0The [facility] SouthComment on above:Order Comment: Pt has midline, acnt find RNPerformed By: #### 18106 ####[facility] [place] [address], USAPLAT MEN669 10*3/tAEvpmvp236-023Zjo [facility] SouthComment on above:Order Comment: Pt has midline, acnt find RNPerformed By: #### 65909 ####[facility] [place] [address], USARBC (Bld) [#/Vol]3.76 10*6/uLLow4.20-5.70The [facility] SouthComment on above:Order Comment: Pt has midline, acnt find RNPerformed By: #### 25086 ####[facility] [place] [address], USAWBC (Bld) [#/Vol]6.35 10*3/uL Normal4.00-10.60The [facility] SouthComment on above:Order Comment: Pt has midline, acnt find RNPerformed By: #### 42499 ####[facility] [place] [address], USALIVER BATTERYon 82-70-9257Natoxdu [Mass/Vol]3.2 g/dLLow3.5-5.7The [facility] SouthComment on above:Order Comment: No: Do not add to previous drawPerformed By: #### 73196, 02659, 05733 ####[facility] [place] [address], USAALKALINE NTHTKS24 IU/YRxvxhu17-847Ibm [facility] SouthComment on above:Order Comment: No: Do not add to previous drawPerformed By: #### 66296, 42683, 28264 ####[facility] [place] [address], USAALT [Catalytic activity/Vol]12 U/LNormal7-52The [facility] SouthComment on above:Order Comment: No: Do not add to previous drawPerformed By: #### 40798, 21620, 17340 ####[facility] [place] [address], USAAST [Catalytic activity/Vol]15 U/ZZfrfok46-80Rur [facility] SouthComment on above:Order Comment: No: Do not add to previous drawPerformed By: #### 26805, 61526, 47071 ####[facility] [place] [address], USABilirubin [Mass/Vol]0.6 mg/dL Normal0.3-1.0The [facility] SouthComment on above:Order Comment: No: Do not add to previous drawPerformed By: #### 12931, 29843, 00319 ####[facility] [place] [address], [place] Bilirubin.direct [Mass/Vol]0.1 mg/dLNormal0.0-0.2The [facility] SouthComment on above:Order Comment: No: Do not add to previous draw Performed By: #### 04412, 55797, 89969 ####[facility] [place] [address], USAProtein [Mass/Vol]6.5 g/dLNormal 6.0-8.3The [facility] SouthComment on above:Order Comment: No: Do not add to previous drawPerformed By: #### 05308, 91197, 18187 ####[facility] [place] [address], [place] MAGNESIUM BLOODon 65-33-8625Zdripanxu [Mass/Vol]2.0 mg/dLNormal1.9-2.7The [facility] SouthComment on above:Order Comment: No: Do not add to previous drawPerformed By: #### 25648, 08868, 78432 ####[facility] [place] [address], [facility]ICAL CENTERPOC GLUCOSE LABon 42-54-5155Ktgnoaf [Mass/Vol]346 mg/wUFgds31-017Qmo [facility] SouthComment on above:Performed By: #### 57051 ####[facility] [place] [address], USAGlucose [Mass/Vol]239 mg/dLHigh 70-100The [facility] SouthComment on above:Performed By: #### 52652 ####[facility] [place] [address], USAGlucose [Mass/Vol]181 mg/sWEmbt07-753Gav [facility] SouthComment on above:Performed By: #### 04911 ####[facility] [place] [address], USAGlucose [Mass/Vol]275 mg/dLHigh 70-100The [facility] SouthComment on above:Performed By: #### 18433 ####[facility] [place] [address], USAGlucose [Mass/Vol]153 mg/tMNxdl02-515Kyk [facility] SouthComment on above:Performed By: #### 09726 ####[facility] [facility] [place] [address], [facility]*BLOOD CULTUREon 12-03-2021*BLOOD CULTUREClinical Report: (D) Specimen: BLOOD CULTURE Collected: 12/03/2021 00:36 Status: Final Last Updated: 12/08/2021 06:53 CULT RES (Final) No Growth Day 5[facility] CampusComment on above: Performed By: #### 51704 ####[facility] [facility] [place] [address], [facility]*FUNGAL BLOOD CULTUREon 12-03-2021*FUNGAL BLOOD CULTURE NormalOhioHealth Southeastern Medical CenterComment on above:Order Comment: No: Do not add to previous drawPerformed By: #### 41263 ####[facility] [place] [address], USAAPTTon 60-64-2988vOWL Coag (Bld) [Time]36.5 sHigh25.0-35.0The [facility] SouthComment on above:Order Comment: No: Do not add to previous drawResult Comment: ALL RESULTS MUST BE INTERPRETED WITH RESPECT TO BLOOD DRAWING ARTIFACTOR DILUTION ER ROR OF ANTICOAGULANT AT THE TIME OF SAMPLING.THE APTT SHOULD NOT BE USED TO MONITOR UNFRACTIONATED HEPARIN THERAPY, THIS LABORATORY NO LONGER HAS AN ESTABLISHED THERAPEUTIC RANGE BASEDON THE APTT. IT IS RECOMMENDED THAT THE [facility] - HEPARIN ASSAY (ANTI-XAACTIVITY) BE USED FOR THIS PURPOSE.Performed By: #### 50751, 77642 ####[facility] [facility] [place] [address], USABNP (B-TYPE NATRIURETIC PEPTIDE)on 48-11-5521Nuahcaxzzho peptide B (Bld) [Mass/Vol]25 pg/mLNormal0-100The [facility] Comment on above:Order Comment: No: Do not add to previous drawResult Comment: Given the appropriate clinical setting a BNP result of >100 pg/mLindicates congestive heart failure.Performed By: #### 76548, 43620 ####[facility] [facility] [place] [address], [facility]ICAL CENTERCBC W/DIFFon 70-91-3034PQI IMM GRANS0.0 10*3/uLNormal0.0-0.2The [facility] SouthComment on above:Order Comment: No: Do not add to previous drawPerformed By: #### 33487 ####[facility] [facility] [place] [address], USAABS NEUTROPHILS5.0 10*3/uLNormal1.6-7.6The [facility] SouthComment on above:Order Comment: No: Do not add to previous draw Performed By: #### 04794 ####[facility] [facility] [place] [address], [facility] CENTERBasophils (Bld) [#/Vol]0.1 10*3/uLNormal0.0-0.2The [facility] SouthComment on above:Order Comment: No: Do not add to previous drawPerformed By: #### 21992 ####[facility] [facility] [place] [address], [facility] CENTERBasophils/100 WBC (Bld)0.6 %Normal 0.0-1.0The [facility] SouthComment on above:Order Comment: No: Do not add to previous drawPerformed By: #### 30216 ####[facility] [facility] [place] [address], [facility] CENTEREosinophils (Bld) [#/Vol] 0.2 10*3/uLNormal0.0-0.5The [facility] SouthComment on above: Order Comment: No: Do not add to previous drawPerformed By: #### 77693 ####[facility] [facility] [place] [address], [place] Eosinophils/100 WBC (Bld)3.0 %Normal0.0-6.0The [facility] SouthComment on above:Order Comment: No: Do not add to previous drawPerformed By: #### 27763 ####[facility] [facility] [place] [address], [facility] MEDICAL CENTERErythrocyte distribution width (RBC) [Ratio]14.2 %Wsxblw64.5-15.0 The [facility] SouthComment on above:Order Comment: No: Do not add to previous drawPerformed By: #### 32636 ####[facility] [facility] [place] [address], [facility] CENTERHematocrit (Bld) [Volume fraction]31.9 %Low39.0-50.0The [facility] SouthComment on above:Order Comment: No: Do not add to previous drawPerformed By: #### 81542 ####[facility] [facility] [place] [address], [place] Hemoglobin (Bld) [Mass/Vol]10.3 g/dLLow13.0-17.0The [facility] SouthComment on above:Order Comment: No: Do not add to previous drawPerformed By: #### 32301 ####[facility] [place] [address], USAIMMATURE GRANS0.4 %Normal0.0-1.0The [facility] SouthComment on above:Order Comment: No: Do not add to previous drawPerformed By: #### 34229 ####[facility] [place] [address], USALymphocytes (Bld) [#/Vol]1.8 10*3/uLNormal1.2-4.0The [facility] SouthComment on above:Order Comment: No: Do not add to previous drawPerformed By: #### 52910 ####[facility] [place] [address], USALymphocytes/100 WBC (Bld)22.7 %Normal 20.0-45.0The [facility] SouthComment on above:Order Comment: No: Do not add to previous drawPerformed By: #### 16108 ####[facility] [place] [address], [facility] CENTERMCH (RBC) [Entitic mass] 26.5 pgLow27.0-33.0The [facility] SouthComment on above:Order Comment: No: Do not add to previous drawPerformed By: #### 34879 ####[facility] [place] [address], [facility] CENTERMCHC (RBC) [Mass/Vol]32.3 g/bWQdlwaj00.0-35.0The [facility] SouthComment on above:Order Comment: No: Do not add to previous drawPerformed By: #### 09481 ####[facility] [place] [address], [place] MCV (RBC) [Entitic vol]82.2 mUXhgsft56.0-98.0The [facility] SouthComment on above:Order Comment: No: Do not add to previous drawPerformed By: #### 81804 ####[facility] [place] [address], [facility] CENTERMonocytes (Bld) [#/Vol]0.8 10*3/uLNormal0.1-1.0The [facility] SouthComment on above:Order Comment: No: Do not add to previous drawPerformed By: #### 40835 ####[facility] [place] [address], ECFIQDWT69.0 %Normal5.0-12.0The [facility] SouthComment on above:Order Comment: No: Do not add to previous drawPerformed By: #### 27538 ####[facility] [place] [address], [facility] CENTERNeutrophils/100 WBC (Bld)63.3 %Normal 40.0-72.0The [facility] SouthComment on above:Order Comment: No: Do not add to previous drawPerformed By: #### 83540 ####[facility] [place] [address], [facility]ICAL CENTERNucleated RBC/100 WBC (Bld) [Ratio]0 %Normal0-0The [facility] SouthComment on above:Order Comment: No: Do not add to previous drawPerformed By: #### 50232 ####[facility] [place] [address], [place] PLAT DZU713 10*3/gZRkgdti211-392Tun [facility] SouthComment on above:Order Comment: No: Do not add to previous drawPerformed By: #### 66333 ####[facility] [place] [address], [facility] RBC (Bld) [#/Vol]3.88 10*6/uLLow4.20-5.70The [facility] Comment on above:Order Comment: No: Do not add to previous drawPerformed By: #### 87314 ####[facility] [place] [address], USAWBC (Bld) [#/Vol]7.93 10*3/uLNormal4.00-10.60The [facility] SouthComment on above:Order Comment: No: Do not add to previous draw Performed By: #### 89698 ####[facility] [place] [address], USACOMP METABOLIC PANELon 18-30-1306Cygcmwp [Mass/Vol]3.6 g/dLNormal3.5-5.7The [facility] SouthComment on above:Order Comment: No: Do not add to previous drawPerformed By: #### 13313, 54762, 39162, 01537 ####[facility] [place] [address], USAALKALINE MLFSNH61 IU/XYqxpfs98-645Zqd [facility] Comment on above:Order Comment: No: Do not add to previous drawPerformed By: #### 08522, 86329, 63047, 20640 ####[facility] [place] [address], USAALT [Catalytic activity/Vol]17 U/LNormal7-52 The [facility] SouthComment on above:Order Comment: No: Do not add to previous drawPerformed By: #### 86076, 34788, 39494, 15289 ####[facility] [place] [address], [place] AST [Catalytic activity/Vol]18 U/WAwlvwv71-68Mfs [facility] SouthComment on above:Order Comment: No: Do not add to previous drawPerformed By: #### 34500, 42264, 75474, 40605 ####[facility] [place] [address], USABilirubin [Mass/Vol]0.7 mg/dLNormal0.3-1.0The [facility] SouthComment on above:Order Comment: No: Do not add to previous drawPerformed By: #### 67774, 49315, 62870, 58803 ####[facility] [place] [address], USACalcium [Mass/Vol]8.6 mg/dLNormal8.6-10.3The [facility] SouthComment on above:Order Comment: No: Do not add to previous drawPerformed By: #### 45782, 98165, 93264, 03991 ####[facility] [place] [address], USAChloride [Moles/Vol]97 mmol/YAdl89-316Qew [facility] SouthComment on above:Order Comment: No: Do not add to previous drawPerformed By: #### 42415, 28100, 94040, 06511 ####[facility] [place] [address], USACO2 [Moles/Vol]29 mmol/L Ytltfu21-75Xfb [facility] SouthComment on above:Order Comment: No: Do not add to previous drawPerformed By: #### 57483, 60899, 30927, 85792 ####[facility] [place] [address], USACreatinine [Mass/Vol]0.93 mg/dLNormal0.70-1.30The [facility] SouthComment on above:Order Comment: No: Do not add to previous draw Performed By: #### 71516, 30097, 27840, 09955 ####[facility] [place] [address], USAGFR/1.73 sq M.predicted among non- blacks MDRD (S/P/Bld) [Vol rate/Area]mL/min/{1.73_m2}Normal>60The [facility] SouthComment on above:Order Comment: No: Do not add to previous drawResult Comment: The [facility]'s estimated glomerularfiltration rate (eGFR) will no longer include consideration of race inits calculation. The National [employer] Foundation's eGFR Task Forcedeveloped new recommendations for the estimation of the glomerularfiltration rate in the [place] They recommend immediate implementation ofthe new equation refit without the race variable in all laboratoriesbecause the calculation does not include race. In addition to notincluding race inthe calculation and reporting, it included diversityin its development, and has acceptable performance characteristics andpotential consequences that do not disproportionately affect any onegroup of individuals.Performed By: #### 92267, 82848, 81663, 47310 ####[facility] [facility] [place] [address], [facility] CENTERGlucose [Mass/Vol] 108 mg/hSYowg08-259Tle [facility] SouthComment on above:Order Comment: No: Do not add to previous drawPerformed By: #### 90100, 08086, 97843, 44141 ####[place] [address] [facility] [place] [place] [address], [facility] CENTERPotassium [Moles/Vol]3.6 mmol/LNormal3.5-5.1The [facility] SouthComment on above:Order Comment: No: Do not add to previous draw Performed By: #### 13429, 33115, 88607, 01157 ####[facility] [facility] [place] [place] [address], [facility] CENTERProtein [Mass/Vol]6.8 g/dLNormal 6.0-8.3The [facility] SouthComment on above:Order Comment: No: Do not add to previous drawPerformed By: #### 76275, 86669, 12475, 07435 ####[facility] [facility] [place] [place] [address], [facility] Sodium [Moles/Vol]136 mmol/OArdvml356-265Liz [facility] Comment on above:Order Comment: No: Do not add to previous drawPerformed By: #### 66169, 58847, 52864, 31323 ####[facility] [address], USAUrea nitrogen [Mass/Vol]24 mg/dLNormal7-25The [facility] SouthComment on above:Order Comment: No: Do not add to previous drawPerformed By: #### 00054, 79559, 60349, 67721 ####[facility] [facility] [address], USAFOOT LEFT 3 VWS on 06-21-9213DRPZ LEFT 3 [facility] HospitalComment on above:Order Comment: OsteomyelitisFOOT RIGHT 3 VWSon 26-93-0205GIUE RIGHT 3 VWMercy Health Kings Mills HospitalComment on above:Order Comment: OsteomyelitisHEMOGLOBIN A1Con 89-02-9563Ldgcusi [Moles/Vol]163 mmol/LNormalThe [facility] SouthComment on above:Order Comment: No: Do not add to previous drawPerformed By: #### 16822, 00202 ####[facility] [place] [address], XFECiI8t (Bld) [Mass fraction]7.3 %High4.0-6.0The [facility] SouthComment on above:Order Comment: No: Do not add to previous drawPerformed By: #### 19853, 54333 ####[facility] [place] [address], USALIPID PROFILEon 96-18-4811Kislgsltinl [Mass/Vol]118 mg/hYWmp289-653Jjt [facility] SouthComment on above:Order Comment: No: Do not add to previous drawResult Comment: CHOLESTEROL REFERENCE RANGE:20 YEARS AND OLDER CARDIOVASCULAR RISKLess than 200 mg/dl Low Aljc734 to 239 mg/dl Borderline Ybsd674 mg/dl and greater High RiskPerformed By: #### 08819, 87685, 05077, 04115 ####[facility] [place] [address], USACholesterol in HDL [Mass/Vol]30 mg/uJKzfuqy36-01Tbl [facility] SouthComment on above:Order Comment: No: Do not add to previous draw Result Comment: Slight variation in normal range could be due to gender and/or age.HDL CHOLESTEROL REFERENCE RANGE:20 years and older Cardiovascular Risk> or =60 mg/dL Fgstesqbu55 TO 59 mg/dL Low Risk<40 mg/dL High RiskPerformed By: #### 77228, 76047, 11171, 16592 ####[facility] [place] [address], USACholesterol in LDL [Mass/Vol]71 mg/dLNormal0-130The [facility] SouthComment on above:Order Comment: No: Do not add to previous drawResult Comment: LDL IS A CALCULATIONLDL IS ONLY VALID IF THE TRIG IS LESS THAN 400.Performed By: #### 43570, 77856, 72846, 88642 ####[facility] [facility] [place] [place] [address], [place] Cholesterol.total/Cholesterol in HDL [Mass ratio]3.9 {ratio}Normal.0-4.5The [facility] SouthComment on above:Order Comment: No: Do not add to previous drawPerformed By: #### 53114, 55865, 36962, 52488 ####[facility] [place] [address], USANON-HDL IPWUDYPVOHC10 mg/dLNormalThe [facility] SouthComment on above:Order Comment: No: Do not add to previous drawPerformed By: #### 28623, 48436, 15615, 26861 ####[facility] [place] [address], USATriglyceride [Mass/Vol]86 mg/wPYxngpa81-473Nek [facility] SouthComment on above:Order Comment: No: Do not add to previous drawResult Comment: TRIGLYCERIDE REFERENCE RANGE:20 YEARS AND OLDER CARDIOVASCULAR RISKLESS THAN 150 mg/dl LOW IVPH840 TO 199 mg/dl BORDERLINE TQLI061 mg/dl AND GREATER HIGH RISKPerformed By: #### 24363, 24490, 11045, 23700 ####[facility] [place] [address], USAVLDL CHOL17 mg/dLNormal0-40The [facility] SouthComment on above:Order Comment: No: Do not add to previous drawPerformed By: #### 99434, 46215, 51451, 69996 ####[facility] [place] [address], USAPOC GLUCOSE LABon 96-72-8448Ftcmkge [Mass/Vol]154 mg/dL Ooyo83-864Ptw [facility] SouthComment on above:Performed By: #### 61262 ####[facility] [place] [address], USAGlucose [Mass/Vol]155 mg/gMDrxo65-764Foa [facility] SouthComment on above:Performed By: #### [id number] ####[facility] [place] [address], USAGlucose [Mass/Vol]143 mg/dLHigh 70-100The [facility] SouthComment on above:Performed By: #### [id number] ####[facility] [place] [address], USAGlucose [Mass/Vol]158 mg/oXOtcf75-557Jlt [facility] SouthComment on above:Performed By: #### [id number] ####[facility] [place] [address], USAPROTHROMBIN TIMEon 44-12-2609LCU Coag (PPP) [Relative time]1.18 {INR}High0.91-1.16The [facility] SouthComment on above:Order Comment: No: Do not add to previous draw Result Comment: ACCCP RECOMMENDED INR FOR WARFARIN THERAPY CONDITION INRPROPHYLAXIS OF VENOUS THROMBOSIS 2-3(HIGH-RISK SURGERY)TREATMENT OF VENOUS THROMBOSIS 2-3TREATMENT OF PULMONARY EMBOLISM 2-3PREVENTION OF SYSTEMIC EMBOLISM: 2-3 ACUTE MYOCARDIAL INFARCTION TISSUE HEART VALVES VALVULAR HEART DISEASE ATRIAL FIBRILLATION RECURRENT SYSTEMIC EMBOLISMMECHANICAL HEART VALVE 2.5-3.5 FROM: ORAL ANTICOAGULANTS. MECHANISM OF ACTION, CLINICALEFFECTIVENESS, AND OPTIMAL THERAPEU TIC RANGE. [id number];108:231S-246S.Performed By: #### 16453, 05644 ####[facility] [facility] [place] [address], [facility] PT Coag (PPP) [Time]15.0 sHigh12.3-14.8The [facility] Comment on above:Order Comment: No: Do not add to previous drawResult Comment: ALL RESULTS MUST BE INTERPRETED WITH RESPECT TO BLOOD DRAWING ARTIFACTOR DILUTION ERROR OF ANTICOAGULANT AT THE TIME OF SAMPLING.Performed By: #### 86566, [id number] ####[facility] [facility] [place] [address], [facility]OS MEDICAL CENTERTIBIA FIBULA LEFTon 64-67-1859SNPUY FIBULA LEFTNormalThMercy Health Defiance HospitalComment on above:Order Comment: InfectionTROPONIN-Ion 91-78-1496Dbhjpqfa I.cardiac [Mass/Vol]0.00 ng/mLNormal0.00-0.04The [facility] SouthComment on above:Order Comment: No: Do not add to previous drawResult Comment: REFERENCE RANGES: 0.00 - 0.04 ng/ml NORMAL 0.05 - 0.50 ng/ml INDETERMINATE > 0.50 ng/ml CONSISTENT WITH AN M.I.Performed By: #### [id number], 17409, 89789, 49501 ####[facility] [place] [address], USATSH3 WITH REFLEX FT4on 62-47-6467OGO 3RD GENERATION1.25 uIU/mLNormal0.34-5.60The [facility] SouthComment on above: Order Comment: No: Do not add to previous drawPerformed By: #### [id number], 42062, 76483, 03107 ####[facility] [place] [address], USACHEMISTRYOrdered By: SYSTEM SYSTEM on 83-32-8702Fdeucndkfh trough [Moles/Vol]24 microgram/mLInvalid Interpretation Code10 - 20 mcg/mLFTMC Remisol Comment on above:Result Comment: Critical Result verified by repeat analysis\Critical Result S_VANC_T:24.0 Called toMADILINE SUKHWINDERKES AT 2N by HANDY LOVETT And Read Back For Confirmation at: 12/02/2021 20:21:20Vancomycin peak [Moles/Vol]52 microgram/mLInvalid Interpretation Code20 - 40 mcg/mLFTMC Remisol Comment on above:Result Comment: Result verified by dilution\Critical Result S_VANC_R:52.0 Called to LYNDON COLLINS AT 2N by ISAAC SWENSON And Read Back For Confirmation at: 12/02/2021 13:51:03Albumin [Mass/Vol]2.7 g/dLLow3.3 - 5.0 gm/dL [facility] RemisolAlbumin/Globulin [Mass ratio]0.8 {ratio}Low1.1 - 2.2[facility] RemisolALP [Catalytic activity/Vol]42 [iU]/nNbdfjf82 - 98 Int._Unit/LFTMC RemisolALT No additional P-5'-P [Catalytic activity/Vol]16 [iU]/dNormal6 - 46 Int._Unit/LFTMC RemisolAnion gap [Moles/Vol]11 mmol/LNormal6 - 16 mEq/LFTMC RemisolAST [Catalytic activity/Vol]19 [iU]/dNormal5 - 43 Int._Unit/LFTMC RemisolBilirubin [Mass/Vol]0.8 mg/dLNormal0.0 - 1.1 mg/dLFTMC RemisolBilirubin.direct [Mass/Vol] 0.1 mg/dLNormal0.1 - 0.4 mg/dLFTMC RemisolBilirubin.indirect [Mass or moles/Vol] 0.7 mg/dLNormal0.1 - 0.9 mg/dLFTMC RemisolCalcium [Mass/Vol]8.3 mg/dLLow8.9 - 11.1 mg/dLFTMC RemisolChloride [Moles/Vol]99 mmol/IGxi768 - 111 mmol/LFTMC RemisolCO2 [Moles/Vol]28 mmol/ZKfxhdy16 - 31 mmol/LFTMC RemisolCreatinine [Mass/Vol]1.2 mg/dLNormal0.5 - 1.3 mg/dLFTMC RemisolGFR/1.73 sq M.predicted among blacks MDRD (S/P/Bld) [Vol rate/Area]mL/min/1.73 c9Jqgyqf>=59mL/min/1.73 m2FT[facility] Chem SGFR/1.73 sq M.predicted among non-blacks MDRD (S/P/Bld) [Vol rate/Area]mL/min/1.73 r3Qldclu>=59mL/min/1.73 m2FT[facility] Chem SGlobulin (S) [Mass/Vol]3.5 g/dLNormal1.4 - 4.0 gm/dLFTMC RemisolGlucose [Mass/Vol]188 mg/dL Kzuqob07 - 199 mg/dLFTMC RemisolMagnesium [Mass/Vol]1.6 mg/dLNormal1.3 - 2.4 mg/dLFTMC RemisolPotassium [Moles/Vol]3.3 mmol/LLow3.5 - 5.3 mmol/LFTMC Remisol Protein [Mass/Vol]6.2 g/dLNormal6.0 - 7.8 gm/dLFTMC RemisolSodium [Moles/Vol]135 mmol/SVbjajb625 - 145 mmol/LFTMC RemisolUrea nitrogen [Mass/Vol]29 mg/dLHigh5 - 21 mg/dLFTMC RemisolUrea nitrogen/Creatinine [Mass ratio]24 mg/xkVnfg79 - 20 [facility] RemisolCHEMISTRYOrdered By: Arnie Lopes on 31-89-6753Wcrjzsl [Mass/Vol]116 mg/pDLmkk71 - 99 mg/dLFTMC POC SubsectionComment on above:Result Comment: Notified RN/MDPOC Device [id number] Interpretation CodeFTMC POC SubsectionPOC User [id number] Interpretation CodeFTMC POC SubsectionPOC UsernameGOOD, ABIGAILInvalid Interpretation CodeFTMC POC SubsectionGlucose [Mass/Vol]188 mg/eWGatv05 - 99 mg/dLFTMC POC SubsectionComment on above:Result Comment: Notified RN/MDPOC Device [id number] Interpretation CodeFTMC POC SubsectionPOC User [id number] Interpretation CodeFTMC POC Subsection POC UsernameGOOD, ABIGAILInvalid Interpretation CodeFTMC POC SubsectionGlucose [Mass/Vol]175 mg/tFLidr57 - 99 mg/dLFTMC POC SubsectionComment on above:Result Comment: Notified RN/MDPOC Device [id number] Interpretation CodeFTMC POC SubsectionPOC User [id number] Interpretation CodeFTMC POC Subsection POC UsernameGOOD, ABIGAILInvalid Interpretation CodeFTMC POC Subsection HEMATOLOGYOrdered By: Piedad Linda on 82-01-8629Kqbywthflze distribution width (RBC) [Ratio]15.4 %High10.9 - 14.2 %[facility] HemeAutoSSHematocrit (Bld) [Volume fraction]27.0 %Low37.7 - 49.0 %[facility] HemeAutoSSHemoglobin (Bld) [Mass/Vol]9.2 g/dLLow13.5 - 17.5 gm/dLFTMC HemeAutoSSMCH (RBC) [Entitic mass] 27.1 fjTypirv49.0 - 34.0 pgFTMC HemeAutoSSMCHC (RBC) [Mass/Vol]33.9 g/dLNormal 31.4 - 36.0 gm/dLFTMC HemeAutoSSMCV (RBC) [Entitic vol]80.0 uKWlrwhq87.0 - 100.0 fLFTMC HemeAutoSSPlatelet mean volume (Bld) [Entitic vol]9.7 fLNormal6.4 - 10.8 fLFTMC HemeAutoSSPlatelets (Bld) [#/Vol]183.0 E9/OWpxges072.0 - 500.0 E9/LFTMC HemeAutoSSRBC (Bld) [#/Vol]3.4 E12/LLow4.3 - 5.9 E12/LFTMC HemeAutoSSWBC corrected for nucl RBC Auto (Bld) [#/Vol]6.8 E9/LNormal4.0 - 11.0 E9/LFTMC HemeAutoSSCHEMISTRYOrdered By: SYSTEM SYSTEM on 54-65-0905Tlsry gap [Moles/Vol]7 mmol/LNormal6 - 16 mEq/LFTMC RemisolCalcium [Mass/Vol]8.0 mg/dLLow8.9 - 11.1 mg/dLFTMC RemisolChloride [Moles/Vol]105 mmol/XTmektv679 - 111 mmol/LFTMC RemisolCO2 [Moles/Vol]27 mmol/BHnnujf00 - 31 mmol/LFTMC RemisolCreatinine [Mass/Vol]0.7 mg/dLNormal0.5 - 1.3 mg/dLFTMC RemisolCRP [Mass/Vol]11.6 mg/dLHigh <=1.9mg/dLFTMC RemisolGFR/1.73 sq M.predicted among blacks MDRD (S/P/Bld) [Vol rate/Area]mL/min/1.73 u1Hlpqyb>=59mL/min/1.73 m2[facility] Chem SGFR/1.73 sq M.predicted among non-blacks MDRD (S/P/Bld) [Vol rate/Area]mL/min/1.73 d0Nspwwu >=59mL/min/1.73 m2[facility] Chem SGlucose [Mass/Vol]153 mg/tIXyyyft31 - 199 mg/dLFTMC RemisolPotassium [Moles/Vol]3.8 mmol/LNormal3.5 - 5.3 mmol/LFTMC RemisolSodium [Moles/Vol]135 mmol/JSmavoc266 - 145 mmol/LFTMC RemisolTSH Qn1.53 m[IU]/LNormal 0.34 - 5.60 mcIU/mLFTMC RemisolUrea nitrogen [Mass/Vol]18 mg/dLNormal5 - 21 mg/dLFTMC RemisolUrea nitrogen/Creatinine [Mass ratio]26 mg/ojXxyp75 - 20FT[facility] RemisolHEMATOLOGYOrdered By: SYSTEM SYSTEM on 22-85-6507Djrfrnlyx/100 WBC (Bld) 0.3 %Normal0.0 - 2.0 %[facility] HemeAutoSSBasophils/Leukocytes Auto (Bld) [Pure # fraction]0.0 E9/LNormal0.0 - 0.2 E9/LFTMC HemeAutoSSEosinophils/100 WBC (Bld)0.1 %Normal0.0 - 8.0 %[facility] HemeAutoSSEosinophils/Leukocytes Auto (Bld) [Pure # fraction]0.0 E9/LNormal0.0 - 0.5 E9/LFTMC HemeAutoSSLymphocytes/100 WBC (Bld) 12.7 %Low14.0 - 50.0 %[facility] HemeAutoSSLymphocytes/Leukocytes Auto (Bld) [Pure # fraction]1.2 E9/LNormal1.0 - 4.0 E9/LFTMC HemeAutoSSMonocytes/100 WBC (Bld)14.1 %High4.0 - 14.0 %[facility] HemeAutoSSMonocytes/Leukocytes Auto (Bld) [Pure # fraction]1.3 E9/LHigh0.2 - 1.0 E9/LFTMC HemeAutoSSNeutrophils/100 WBC (Bld)72.8 %Aeqanj93.0 - 75.0 %[facility] HemeAutoSSNeutrophils/Leukocytes Auto (Bld) [Pure # fraction]6.6 E9/LNormal2.0 - 7.5 E9/LFTMC HemeAutoSSHEMATOLOGYOrdered By: Franci Lane on 05-84-0094Gkseczbnykc distribution width (RBC) [Ratio]15.2 %High10.9 - 14.2 %[facility] HemeAutoSSHematocrit (Bld) [Volume fraction]27.8 %Low37.7 - 49.0 % FT HemeAutoSSHemoglobin (Bld) [Mass/Vol]9.2 g/dLLow13.5 - 17.5 gm/dLFT HemeAutoSSMCH (RBC) [Entitic mass]26.5 pgLow27.0 - 34.0 pgFWW [facility] HemeAutoSSMCHC (RBC) [Mass/Vol]33.0 g/eGDbujmh56.4 - 36.0 gm/dLFT HemeAutoSSMCV (RBC) [Entitic vol]80.4 uTPrmzbo62.0 - 100.0 fLMEMORIAL [facility] HemeAutoSSPlatelet mean volume (Bld) [Entitic vol]9.9 fLNormal6.4 - 10.8 fLMEMORIAL [facility] HemeAutoSSPlatelets (Bld) [#/Vol]163.0 E9/JOhftgk693.0 - 500.0 E9/[facility] HemeAutoSSRBC (Bld) [#/Vol]3.5 E12/LLow4.3 - 5.9 E12/[facility] HemeAutoSSWBC corrected for nucl RBC Auto (Bld) [#/Vol]9.1 E9/LNormal4.0 - 11.0 /[facility] HemeAutoSSURINALYSISOrdered By: Isaac Swenson on 81-67-8183Isbwisyix Ql (U)Negative (12/01/21 6:55 AM)NormalNegativeMEM[facility] UA Auto SSClarity (U)Clear (12/01/21 6:55 AM)NormalClearFWW [facility] UA Auto SSColor (U)Yellow (12/01/21 6:55 AM)NormalYellowFT UA Auto SSEpithelial cells.squamous LM.HPF (Urine sed) [#/Area]0-2 /HPFNormal0-2/HPFFT UA Auto SSFine Granular Casts LM Ql (Urine sed)0-3 (12/01/21 6:55 AM)NormalFT UA Auto SSGlucose Test strip (U) [Mass/Vol]Negative (12/01/21 6:55 AM)NormalNegativeMEM[facility] UA Auto SSHemoglobin Ql (U)2+ *ABN* (12/01/21 6:55 AM)Invalid Interpretation CodeNegativeFT UA Auto SSKetones (U) [Mass/Vol]Negative (12/01/21 6:55 AM)NormalNegativeMEMORIAL [facility] UA Auto SSLithium.plasma/Indios.RBC (Bld) [Mass ratio]4-20 /HPFNormal0-3/HPFMC UA Auto SSNitrite Ql (U)Negative (12/01/21 6:55 AM)NormalNegativeMEM[facility] UA Auto SSpH (U)5.5 *NA* (12/01/21 6:55 AM)Invalid Interpretation Code5.0 - 9.0[facility] UA Auto SSProtein (U) [Mass/Vol]2+ *ABN* (12/01/21 6:55 AM)Invalid Interpretation CodeNegativeMEMORIAL [facility] UA Auto SSSpecific gravity (U) [Rel density]>=1.030 *NA* (12/01/21 6:55 AM)Invalid Interpretation Code1.005 - 1.030[facility] UA Auto SSUA Spec DescClean Catch (12/01/21 6:55 AM)NormalMEMORIAL [facility] UA Auto SSUrobilinogen Qn (U)0.2714150 {Tu'U}/dLNormal0.0 - 1.0 EU/dLMEMORIAL H[facility] UA Auto SSWBC Auto Ql (U)Negative (12/01/21 6:55 AM)NormalNegativeMEM[facility]IAL [facility] UA Auto SSWBC LM.HPF (Urine sed) [#/Area]0-5 /HPFNormal0-5/HPFMEMORIAL HOSP[facility] UA Auto SSCHEMISTRYOrdered By: SYSTEM SYSTEM on 08-83-1960Tdoqsfl [Mass/Vol]0.9 mmol/LNormal0.5 - 2.2 mmol/LFTMC RemisolAlbumin [Mass/Vol]2.8 g/dLLow3.3 - 5.0 gm/dLFTMC RemisolAlbumin/Globulin [Mass ratio]0.9 {ratio}Low1.1 - 2.2[facility] RemisolALP [Catalytic activity/Vol]43 [iU]/bWknvzu02 - 98 Int._Unit/LFTMC RemisolALT No additional P-5'-P [Catalytic activity/Vol]18 [iU]/dNormal6 - 46 Int._Unit/LFTMC RemisolAnion gap [Moles/Vol]8 mmol/LNormal6 - 16 mEq/LFTMC RemisolAST [Catalytic activity/Vol]21 [iU]/dNormal5 - 43 Int._Unit/LFTMC RemisolBilirubin [Mass/Vol]0.6 mg/dLNormal0.0 - 1.1 mg/dLFTMC RemisolCalcium [Mass/Vol]8.1 mg/dLLow8.9 - 11.1 mg/dLFTMC RemisolChloride [Moles/Vol]102 mmol/MThrdjm193 - 111 mmol/LFTMC RemisolCO2 [Moles/Vol]27 mmol/L Rbttfs45 - 31 mmol/LFTMC RemisolCreatinine [Mass/Vol]0.9 mg/dLNormal0.5 - 1.3 mg/dLFTMC RemisolCRP [Mass/Vol]9.8 mg/dLHigh<=1.9mg/dLFTMC RemisolGFR/1.73 sq M.predicted among blacks MDRD (S/P/Bld) [Vol rate/Area]mL/min/1.73 o9Rkafui >=59mL/min/1.73 m2[facility] Chem SGFR/1.73 sq M.predicted among non-blacks MDRD (S/P/Bld) [Vol rate/Area]mL/min/1.73 r7Gwrpnz>=59mL/min/1.73 m2[facility] Chem S Globulin (S) [Mass/Vol]3.2 g/dLNormal1.4 - 4.0 gm/dLFTMC RemisolGlucose [Mass/Vol]177 mg/aPNypvez45 - 199 mg/dLFTMC RemisolLactate [Mass/Vol]1.1 mmol/L Normal0.5 - 2.2 mmol/LFTMC RemisolPotassium [Moles/Vol]3.9 mmol/LNormal3.5 - 5.3 mmol/LFTMC RemisolProtein [Mass/Vol]6.0 g/dLNormal6.0 - 7.8 gm/dLFT[facility] Remisol Sodium [Moles/Vol]133 mmol/EGrb540 - 145 mmol/LFTMC RemisolTroponin I.cardiac [Mass/Vol]9.00 pg/mLLow15.90 - 38.40 pg/mLFTMC RemisolUrea nitrogen [Mass/Vol]24 mg/dLHigh5 - 21 mg/dLFTMC RemisolUrea nitrogen/Creatinine [Mass ratio]27 mg/mg High10 - 20[facility] RemisolCOAGULATIONOrdered By: Kerri Manely on 34-36-9559yWJD Coag (PPP) [Time]34.7 qJtsmnc23.1 - 36.5 second(s)[facility] Auto CoagINR Coag (PPP) [Relative time]1.4 {INR}Invalid Interpretation CodeFTMC Auto CoagPT Coag (PPP) [Time]16.1 sHigh10.2 - 12.9 second(s)[facility] Auto CoagHEMATOLOGYOrdered By: SYSTEM SYSTEM on 97-16-8785Uydljalmt/100 WBC (Bld)0.4 %Normal0.0 - 2.0 %[facility] HemeAutoSS Basophils/Leukocytes Auto (Bld) [Pure # fraction]0.0 E9/LNormal0.0 - 0.2 E9/L [facility] HemeAutoSSEosinophils/100 WBC (Bld)0.2 %Normal0.0 - 8.0 %[facility] HemeAutoSS Eosinophils/Leukocytes Auto (Bld) [Pure # fraction]0.0 E9/LNormal0.0 - 0.5 E9/L [facility] HemeAutoSSLymphocytes/100 WBC (Bld)16.6 %Xehrxy76.0 - 50.0 %[facility] HemeAutoSS Lymphocytes/Leukocytes Auto (Bld) [Pure # fraction]1.1 E9/LNormal1.0 - 4.0 E9/L [facility] HemeAutoSSMonocytes/100 WBC (Bld)13.9 %Normal4.0 - 14.0 %[facility] HemeAutoSS Monocytes/Leukocytes Auto (Bld) [Pure # fraction]0.9 E9/LNormal0.2 - 1.0 E9/L [facility] HemeAutoSSNeutrophils/100 WBC (Bld)68.9 %Mnkazz64.0 - 75.0 %[facility] HemeAutoSS Neutrophils/Leukocytes Auto (Bld) [Pure # fraction]4.7 E9/LNormal2.0 - 7.5 E9/L [facility] HemeAutoSSHEMATOLOGYOrdered By: Franci Lane on 27-47-7964Ogprzlxicbd distribution width (RBC) [Ratio]15.5 %High10.9 - 14.2 %[facility] HemeAutoSSHematocrit (Bld) [Volume fraction]27.8 %Low37.7 - 49.0 %[facility] HemeAutoSSHemoglobin (Bld) [Mass/Vol]9.0 g/dLLow13.5 - 17.5 gm/dLFTMC HemeAutoSSMCH (RBC) [Entitic mass] 26.3 pgLow27.0 - 34.0 pgFTMC HemeAutoSSMCHC (RBC) [Mass/Vol]32.3 g/zJBhuorv83.4 - 36.0 gm/dLFTMC HemeAutoSSMCV (RBC) [Entitic vol]81.5 mTMweqxw87.0 - 100.0 fL [facility] HemeAutoSSPlatelet mean volume (Bld) [Entitic vol]9.4 fLNormal6.4 - 10.8 fL [facility] HemeAutoSSPlatelets (Bld) [#/Vol]155.0 E9/JGhgyaj236.0 - 500.0 E9/LFTMC HemeAutoSSRBC (Bld) [#/Vol]3.4 E12/LLow4.3 - 5.9 E12/LFTMC HemeAutoSSWBC corrected for nucl RBC Auto (Bld) [#/Vol]6.8 E9/LNormal4.0 - 11.0 E9/LFTMC HemeAutoSSNo Panel Informationon 92-90-4881Hnhiz Culture CharcoalNo growth at 2 days. Final to follow at 7 days.[facility] AvonBlood Culture CharcoalNo growth at 2 days. Final to follow at 7 days.[facility], AvonPROF CHEM 8 (BAS METB)on 35-17-4218Fflpc gap [Moles/Vol]10.9 mmol/LNormal The [facility] HospitalComment on above:Performed By: #### BMP #### [facility] [address] [address] [address] Terrence GundersonCalcium [Mass/Vol]8.7 mg/dLNormal8.5-10.1[facility] Comment on above:Performed By: #### BMP #### [facility] [address] [address] [address] Terrence GundersonChloride [Moles/Vol]104 mmol/QYsxxoo18-205Xto [facility] Comment on above:Performed By: #### BMP #### [facility] [address] [address] [address] Terrence GundersonCO2 [Moles/Vol]28.3 mmol/BGxxmpg72.0-32.0The [facility] Comment on above:Performed By: #### BMP #### [facility] [address] [address] [address] Terrence GundersonCreatinine [Mass/Vol]0.83 mg/dLNormal0.70-1.30The [facility] HospitalComment on above:Performed By: #### BMP #### [facility] [address] [address] [address] Terrence CampbellGFR-AF MAURITIAN>60Normal>=60The [facility] HospitalComment on above:Performed By: #### BMP #### [facility] [address] [address] [address] Terrence CampbellGFR-NON AF MAURITIAN>60Normal>=60The [facility] HospitalComment on above:Performed By: #### BMP #### [facility] [address] [address] [address] Terrence GundersonGlucose [Mass/Vol]133 mg/dLCritically xafg12-070Mck [facility] on above:Performed By: #### BMP #### [facility] [address] [address] [address] Terrence GundersonPotassium [Moles/Vol]4.2 mmol/LNormal3.5-5.1The [facility] Comment on above:Performed By: #### BMP #### [facility] [address] [address] [address] Terrence GundersonSodium [Moles/Vol]139 mmol/XGdoomx391-013Oav [facility] Comment on above:Performed By: #### BMP #### [facility] [address] [address] [address] Terrence GundersonUrea nitrogen [Mass/Vol]21.0 mg/dLCritically high7.0-18.0The [facility] HospitalComment on above:Performed By: #### BMP #### [facility] [address] [address] [address] Terrence Saldana nitrogen/Creatinine [Mass ratio]25.3 mg/mgNoCincinnati Shriners HospitalComment on above:Performed By: #### BMP #### [facility] [address] [address] [address] Terrence Márquez GLUCOSE LABon 19-21-5118Ifvlzcf [Mass/Vol]115 mg/lBZlao16-235 The [facility] SouthComment on above:Performed By: #### [id number] ####[facility] [place] [address], [place] BASIC METABOLIC PANELon 59-91-2233Wqekzze [Mass/Vol]8.4 mg/dLLow8.6-10.3The [facility] SouthComment on above:Order Comment: No: Do not add to previous drawPerformed By: #### [id number], [id number] ####[facility] [place] [address], USAChloride [Moles/Vol]101 mmol/HTgkvcz01-762Edq [facility] SouthComment on above:Order Comment: No: Do not add to previous drawPerformed By: #### 83565, 01977 ####[facility] [place] [address], [place] CO2 [Moles/Vol]26 mmol/ITifunn10-24Aju [facility] Comment on above:Order Comment: No: Do not add to previous drawPerformed By: #### 07977, 13530 ####[facility] [place] [address], USACreatinine [Mass/Vol]0.80 mg/dLNormal0.70-1.30The [facility] SouthComment on above:Order Comment: No: Do not add to previous drawPerformed By: #### [id number], 71708 ####[facility] [place] [address], USAGFR/1.73 sq M.predicted among blacks MDRD (S/P/Bld) [Vol rate/Area]mL/min/{1.73_m2}Normal>60The [facility] SouthComment on above:Order Comment: No: Do not add to previous drawPerformed By: #### [id number], 04342 ####[facility] [place] [address], USAGFR/1.73 sq M.predicted among non-blacks MDRD (S/P/Bld) [Vol rate/Area]mL/min/{1.73_m2}Normal>60The [facility] SouthComment on above:Order Comment: No: Do not add to previous drawPerformed By: #### 02888, 71440 ####[facility] [place] [address], USAGlucose [Mass/Vol]198 mg/vNCzgi54-798Ynz [facility] SouthComment on above:Order Comment: No: Do not add to previous drawPerformed By: #### 29612, 22959 ####[facility] [place] [address], [place] Potassium [Moles/Vol]3.9 mmol/LNormal3.5-5.1The [facility] SouthComment on above:Order Comment: No: Do not add to previous drawPerformed By: #### 83708, 15513 ####[facility] [place] [address], USASodium [Moles/Vol]136 mmol/EJgetwk350-646Ftp [facility] SouthComment on above:Order Comment: No: Do not add to previous drawPerformed By: #### 05906, 92392 ####[facility] [facility] [place] [address], USAUrea nitrogen [Mass/Vol]36 mg/dL High7-25The [facility] SouthComment on above:Order Comment: No: Do not add to previous drawPerformed By: #### 74323, [id number] ####[facility] [facility] [place] [address], [facility]ICAL CENTERCBC COMPLETE BLOOD COUNTon 74-22-7190Hasoyideyfw distribution width (RBC) [Ratio]13.8 %Normal 11.5-15.0The [facility] SouthComment on above:Order Comment: No: Do not add to previous drawPerformed By: #### [id number] ####[facility] [facility] [place] [address], [facility]ICAL CENTERHematocrit (Bld) [Volume fraction]34.7 %Low39.0-50.0The [facility] SouthComment on above:Order Comment: No: Do not add to previous drawPerformed By: #### [id number] ####[address] [place] [address], [facility] Hemoglobin (Bld) [Mass/Vol]11.0 g/dLLow13.0-17.0The [facility] SouthComment on above:Order Comment: No: Do not add to previous drawPerformed By: #### [id number] ####[facility] [place] [address].[place] [address], [facility] CENTERMCH (RBC) [Entitic mass]27.4 giTrevfc46.0-33.0The [facility] SouthComment on above:Order Comment: No: Do not add to previous drawPerformed By: #### [id number] ####[facility].[place] [id number], [facility] DURANTHC (RBC) [Mass/Vol]31.7 g/dLLow32.0-35.0The [facility] SouthComment on above:Order Comment: No: Do not add to previous drawPerformed By: #### [id number] ####[facility] [id number], [facility] CENTERMCV (RBC) [Entitic vol]86.3 fL Gvnafe43.0-98.0The [facility] SouthComment on above:Order Comment: No: Do not add to previous drawPerformed By: #### [id number] ####[facility] [place] [address], [facility] MEDICAL CENTERNucleated RBC/100 WBC (Bld) [Ratio]0 %Normal0-0The [facility] Comment on above:Order Comment: No: Do not add to previous drawPerformed By: #### [id number] ####[facility] [place] [address], [facility]ICAL CENTERPLAT [id number] 10*3/jBEidlum936-194Oql [facility] SouthComment on above:Order Comment: No: Do not add to previous drawPerformed By: #### [id number] ####[facility] [place] [address], [facility] MEDICAL CENTERRBC (Bld) [#/Vol]4.02 10*6/uLLow4.20-5.70The [facility] SouthComment on above:Order Comment: No: Do not add to previous draw Performed By: #### [id number] ####[facility] [place] [address], [facility]ICAL CENTERWBC (Bld) [#/Vol]6.29 10*3/uLNormal4.00-10.60The [facility] SouthComment on above:Order Comment: No: Do not add to previous drawPerformed By: #### [id number] ####[facility] [place] [address], USAMAGNESIUM BLOODon 10-29-2021 Magnesium [Mass/Vol]2.4 mg/dLNormal1.9-2.7The [facility] SouthComment on above:Order Comment: No: Do not add to previous drawPerformed By: #### [id number] ####[facility] [place] [address], [place] GLUCOSE LABon [id number] [Mass/Vol]120 mg/dL [id number] [facility] SouthComment on above:Performed By: #### [id number] ####[facility] [place] [address], USAGlucose [Mass/Vol]188 mg/xZZgox31-740Kph [facility] [place] SouthComment on above:Performed By: #### [id number] ####[facility] [place] [address], USAGlucose [Mass/Vol]173 mg/dLHigh 70-100The [facility] [place] SouthComment on above:Performed By: #### [id number] ####[facility] [place] [address], USAGlucose [Mass/Vol]149 mg/jOSnhs64-889Tzt [facility] [place] SouthComment on above:Performed By: #### [id number] ####[facility] [place] [address], USABASIC METABOLIC PANELon 68-23-6011Ugmcvgh [Mass/Vol]8.7 mg/dLNormal8.6-10.3The [facility] [place] SouthComment on above:Order Comment: No: Do not add to previous draw Performed By: #### 11829, 82969 ####[facility] [place] [address], USAChloride [Moles/Vol]100 mmol/EWvpyjp45-710Vjn [facility] [place] SouthComment on above:Order Comment: No: Do not add to previous drawPerformed By: #### 02075, 55480 ####[facility] [place] [address], USACO2 [Moles/Vol]26 mmol/L Snfbxh92-76Yjb [facility] [place] SouthComment on above:Order Comment: No: Do not add to previous drawPerformed By: #### 27734, 12282 ####[facility] [place] [address], [place] Creatinine [Mass/Vol]0.97 mg/dLNormal0.70-1.30The [facility] [place] SouthComment on above:Order Comment: No: Do not add to previous drawPerformed By: #### 29523, 80471 ####[facility] [place] [address], USAGFR/1.73 sq M.predicted among blacks MDRD (S/P/Bld) [Vol rate/Area]mL/min/{1.73_m2}Normal>60The [facility] [place] [facility] Comment on above:Order Comment: No: Do not add to previous drawPerformed By: #### 62694, 31485 ####[facility] [place] [address], USAGFR/1.73 sq M.predicted among non-blacks MDRD (S/P/Bld) [Vol rate/Area]mL/min/{1.73_m2}Normal>60The [facility] [place] [facility] Comment on above:Order Comment: No: Do not add to previous drawPerformed By: #### 71287, 03534 ####[facility] [place] [address], USAGlucose [Mass/Vol]242 mg/rTJear99-106Xjv [facility] [place] SouthComment on above:Order Comment: No: Do not add to previous drawPerformed By: #### 31211, 77079 ####[facility] [place] [address], USAPotassium [Moles/Vol]4.0 mmol/LNormal3.5-5.1 The [facility] [place] SouthComment on above:Order Comment: No: Do not add to previous drawPerformed By: #### 28923, 74691 ####[facility] [place] [address], USASodium [Moles/Vol]136 mmol/TYhuiii741-712Dvc [facility] [place] SouthComment on above:Order Comment: No: Do not add to previous drawPerformed By: #### 33502, 42280 ####[facility] [place] [address], [place] Urea nitrogen [Mass/Vol]40 mg/dLHigh7-25The [facility] [place] [facility] Comment on above:Order Comment: No: Do not add to previous drawPerformed By: #### 88707, 01740 ####[facility] [place] [address], USACBC COMPLETE BLOOD COUNTon 24-00-2739Gstwwkhttkl distribution width (RBC) [Ratio]13.9 %Mmreoj23.5-15.0The [facility] [place] SouthComment on above:Order Comment: No: Do not add to previous draw Performed By: #### [id number] ####[facility] [place] [address], USAHematocrit (Bld) [Volume fraction]38.5 %Low39.0-50.0The [facility] [place] SouthComment on above:Order Comment: No: Do not add to previous drawPerformed By: #### 67435 ####[facility] [place] [address], USAHemoglobin (Bld) [Mass/Vol]12.3 g/dLLow13.0-17.0The [facility] [place] SouthComment on above:Order Comment: No: Do not add to previous drawPerformed By: #### 24411 ####[facility] [place] [address], [facility] (RBC) [Entitic mass]27.3 kmDgdxax37.0-33.0The [facility] [place] [facility] Comment on above:Order Comment: No: Do not add to previous drawPerformed By: #### 87900 ####[facility] [facility] [place] [place] [address], [facility]TH[facility] (RBC) [Mass/Vol]31.9 g/dLLow32.0-35.0The [facility] [place] SouthComment on above:Order Comment: No: Do not add to previous draw Performed By: #### 30278 ####[facility] [facility] [place] [place] [address], [facility] [place] [facility]ANTV (RBC) [Entitic vol]85.4 jSMbuxyb48.0-98.0The [facility] [place] SouthComment on above:Order Comment: No: Do not add to previous drawPerformed By: #### [id number] ####[facility] [facility] [place] [address], [facility]ICAL CENTERNucleated RBC/100 WBC (Bld) [Ratio]0 %Normal0-0The [facility] [place] SouthComment on above:Order Comment: No: Do not add to previous drawPerformed By: #### 78160 ####[facility] [facility] [place] [address], [facility] MEDICAL CENTERPLAT VZP427 10*3/sVYlvbka312-548Fhm [facility] [place] SouthComment on above: Order Comment: No: Do not add to previous drawPerformed By: #### 92219 ####[facility] [facility] [place] [address], [facility] RBC (Bld) [#/Vol]4.51 10*6/uLNormal4.20-5.70The [facility] [place] SouthComment on above:Order Comment: No: Do not add to previous drawPerformed By: #### 55074 ####[facility] [place] [address], USAWBC (Bld) [#/Vol]7.57 10*3/uLNormal4.00-10.60The [facility] [place] SouthComment on above:Order Comment: No: Do not add to previous drawPerformed By: #### 84732 ####[facility] [place] [address], USAMAGNESIUM BLOODon 63-51-8197Vucmztdtn [Mass/Vol]2.8 mg/dLHigh1.9-2.7The [facility] [place] SouthComment on above:Order Comment: No: Do not add to previous drawPerformed By: #### 88288, 22289 ####[facility] [place] [address], USAPOC GLUCOSE LABon 40-19-2407Ddsejor [Mass/Vol]249 mg/kHPode29-602Nlt [facility] [place] SouthComment on above:Performed By: #### 17408 ####[facility] [place] [address], [place] Glucose [Mass/Vol]192 mg/oUCjzx85-047Xdy [facility] [place] [facility] Comment on above:Performed By: #### 99016 ####[facility] [place] [address], USAGlucose [Mass/Vol]200 mg/dLHigh 70-100The [facility] [place] SouthComment on above:Performed By: #### 49485 ####[facility] [place] [address], USAGlucose [Mass/Vol]132 mg/qIEags14-624Mat [facility] [place] SouthComment on above:Performed By: #### 28389 ####[facility] [place] [address], USABASIC METABOLIC PANELon 66-00-9858Nzbbjpr [Mass/Vol]8.9 mg/dLNormal8.6-10.3The [facility] [place] SouthComment on above:Order Comment: No: Do not add to previous draw Performed By: #### 83075, 96731 ####[facility] [place] [address], USAChloride [Moles/Vol]96 mmol/BRyd68-255Gab [facility] [place] SouthComment on above:Order Comment: No: Do not add to previous drawPerformed By: #### 82176, 64206 ####[facility] [place] [address], USACO2 [Moles/Vol]28 mmol/L Kwnrqq23-43Wmb [facility] [place] SouthComment on above:Order Comment: No: Do not add to previous drawPerformed By: #### 89923, 60528 ####[facility] [place] [address], [place] Creatinine [Mass/Vol]1.21 mg/dLNormal0.70-1.30The [facility] [place] SouthComment on above:Order Comment: No: Do not add to previous drawPerformed By: #### 72688, 87190 ####[facility] [place] [address], USAGFR/1.73 sq M.predicted among blacks MDRD (S/P/Bld) [Vol rate/Area]mL/min/{1.73_m2}Normal>60The [facility] [place] [facility] Comment on above:Order Comment: No: Do not add to previous drawPerformed By: #### 81025, 06598 ####[facility] [place] [address], USAGFR/1.73 sq M.predicted among non-blacks MDRD (S/P/Bld) [Vol rate/Area]mL/min/{1.73_m2}Normal>60The [facility] [place] [facility] Comment on above:Order Comment: No: Do not add to previous drawPerformed By: #### 04034, 01869 ####[facility] [place] [address], USAGlucose [Mass/Vol]186 mg/mUZfav52-455Fdw [facility] [place] SouthComment on above:Order Comment: No: Do not add to previous drawPerformed By: #### 55125, 73258 ####[facility] [place] [address], USAPotassium [Moles/Vol]3.6 mmol/LNormal3.5-5.1 The [facility] [place] SouthComment on above:Order Comment: No: Do not add to previous drawPerformed By: #### 53680, 61818 ####[facility] [place] [address], USASodium [Moles/Vol]133 mmol/CTry259-274Tub [facility] [place] SouthComment on above:Order Comment: No: Do not add to previous drawPerformed By: #### 47467, 82187 ####[facility] [place] [address], [place] Urea nitrogen [Mass/Vol]50 mg/dLHigh7-25The [facility] [place] [facility] Comment on above:Order Comment: No: Do not add to previous drawPerformed By: #### 50126, 64661 ####[facility] [place] [address], USACBC COMPLETE BLOOD COUNTon 97-33-8249Dxesyjlpwzk distribution width (RBC) [Ratio]13.8 %Sqsjcv04.5-15.0The [facility] [place] SouthComment on above:Order Comment: No: Do not add to previous draw Performed By: #### 75469 ####[facility] [address], USAHematocrit (Bld) [Volume fraction]38.7 %Low39.0-50.0The [facility] [place] SouthComment on above:Order Comment: No: Do not add to previous drawPerformed By: #### 55249 ####[facility] [facility] [place] [address], [facility] MEDICAL CENTERHemoglobin (Bld) [Mass/Vol]12.6 g/dLLow13.0-17.0The [facility] [place] SouthComment on above:Order Comment: No: Do not add to previous drawPerformed By: #### 62514 ####[facility] [facility] [place] [place] [address], [facility] (RBC) [Entitic mass]27.1 jsVozjkp04.0-33.0The [facility] [place] [facility] Comment on above:Order Comment: No: Do not add to previous drawPerformed By: #### 23590 ####[facility] [facility] [place] [address], [facility]ICAL CENTERMCHC (RBC) [Mass/Vol]32.6 g/zWDchuks99.0-35.0The [facility] [place] SouthComment on above:Order Comment: No: Do not add to previous draw Performed By: #### 81801 ####[facility] [facility] [place] [place] [address], [facility] CENTERMCV (RBC) [Entitic vol]83.2 gDMalllx31.0-98.0The [facility] [place] SouthComment on above:Order Comment: No: Do not add to previous drawPerformed By: #### 54444 ####[facility] [facility] [place] [address], USANucleated RBC/100 WBC (Bld) [Ratio]0 %Normal0-0The [facility] [place] SouthComment on above:Order Comment: No: Do not add to previous drawPerformed By: #### 97212 ####[facility] [place] [address], USAPLAT DWG612 10*3/dAUqmuvd878-907Swp [facility] [place] SouthComment on above: Order Comment: No: Do not add to previous drawPerformed By: #### 99701 ####[facility] [place] [address], [place] RBC (Bld) [#/Vol]4.65 10*6/uLNormal4.20-5.70The [facility] [place] SouthComment on above:Order Comment: No: Do not add to previous drawPerformed By: #### 54464 ####[facility] [place] [address], [facility] MEDICAL CENTERWBC (Bld) [#/Vol]7.56 10*3/uLNormal4.00-10.60The [facility] [place] SouthComment on above:Order Comment: No: Do not add to previous drawPerformed By: #### 10369 ####[facility] [facility] [place] [address], [facility]ICAL CENTERMAGNESIUM BLOODon 59-20-2095Nvhjhjymu [Mass/Vol]2.9 mg/dLHigh1.9-2.7The [facility] [place] SouthComment on above:Order Comment: No: Do not add to previous drawPerformed By: #### 50074, 22256 ####[facility] [place] [address], [facility] MEDICAL CENTERPOC GLUCOSE LABon 96-38-9334Cnzzpsq [Mass/Vol]127 mg/dSGgkc03-101Bcg [facility] [place] SouthComment on above:Performed By: #### 20866 ####[facility] [place] [address], [place] Glucose [Mass/Vol]185 mg/pTKmga09-235Pth [facility] [place] [facility] Comment on above:Performed By: #### 22415 ####[facility] [place] [address], USAGlucose [Mass/Vol]353 mg/dLHigh 70-100The [facility] [place] SouthComment on above:Performed By: #### 35270 ####[facility] [place] [address], USAGlucose [Mass/Vol]146 mg/tGHbhc18-241Erl [facility] [place] SouthComment on above:Performed By: #### 60132 ####[facility] [place] [address], USABASIC METABOLIC PANELon 84-78-5205Gagtjuu [Mass/Vol]8.6 mg/dLNormal8.6-10.3The [facility] [place] SouthComment on above:Order Comment: No: Do not add to previous draw Performed By: #### 83523, 43505 ####[facility] [place] [address], USAChloride [Moles/Vol]89 mmol/FUkf45-791Fkz [facility] [place] SouthComment on above:Order Comment: No: Do not add to previous drawPerformed By: #### 96329, 43734 ####[facility] [place] [address], USACO2 [Moles/Vol]33 mmol/L Yvzl04-76Wkd [facility] [place] SouthComment on above:Order Comment: No: Do not add to previous drawPerformed By: #### 02764, 50157 ####[facility] [place] [address], USACreatinine [Mass/Vol]1.76 mg/dLHigh0.70-1.30The [facility] [place] SouthComment on above:Order Comment: No: Do not add to previous drawPerformed By: #### 82746, 91150 ####[facility] [place] [address], USAeGFR- Rknucvmc29 ml/min/1.73sq mAbnormal>60The [facility] [place] SouthComment on above:Order Comment: No: Do not add to previous drawPerformed By: #### 90983, 26584 ####[facility] [place] [address], USAeGFR- non- Bicxyooo89 ml/min/1.73sq m Abnormal>60The [facility] [place] SouthComment on above:Order Comment: No: Do not add to previous drawPerformed By: #### 44815, 12511 ####[facility] [place] [address], [place] Glucose [Mass/Vol]191 mg/lJNhxf47-166Fmm [facility] [place] [facility] Comment on above:Order Comment: No: Do not add to previous drawPerformed By: #### 01849, 19672 ####[facility] [place] [address], USAPotassium [Moles/Vol]3.2 mmol/LLow3.5-5.1The [facility] [place] SouthComment on above:Order Comment: No: Do not add to previous drawPerformed By: #### 37373, 28395 ####[facility] [place] [address], USASodium [Moles/Vol]133 mmol/LLow 136-145The [facility] [place] SouthComment on above:Order Comment: No: Do not add to previous drawPerformed By: #### 44019, 20307 ####[facility] [place] [address], USAUrea nitrogen [Mass/Vol]62 mg/dLHigh7-25The [facility] [place] SouthComment on above:Order Comment: No: Do not add to previous drawPerformed By: #### 90111, 06989 ####[facility] [place] [address], USACBC COMPLETE BLOOD COUNTon 73-01-5179Rystjezmmbs distribution width (RBC) [Ratio]13.8 %Uyxcfe15.5-15.0The [facility] [place] SouthComment on above:Order Comment: No: Do not add to previous drawPerformed By: #### 08445 ####[facility] [facility] [place] [address], [facility] Hematocrit (Bld) [Volume fraction]35.8 %Low39.0-50.0The [facility] [place] SouthComment on above:Order Comment: No: Do not add to previous draw Performed By: #### 80051 ####[facility] [place] [address], [facility]ICAL CENTERHemoglobin (Bld) [Mass/Vol]11.9 g/dLLow13.0-17.0The [facility] [place] SouthComment on above:Order Comment: No: Do not add to previous drawPerformed By: #### 59558 ####[facility] [place] [address].[place] [address], [facility] CENTERMCH (RBC) [Entitic mass]27.6 pg Zrwprb79.0-33.0The [facility] [place] SouthComment on above:Order Comment: No: Do not add to previous drawPerformed By: #### 18074 ####[address] [place] [address], [facility] CENTERMCHC (RBC) [Mass/Vol]33.2 g/kOImluev52.0-35.0The [facility] [place] SouthComment on above:Order Comment: No: Do not add to previous drawPerformed By: #### 02270 ####[facility] [place] [address].[place] [address], [facility] MCV (RBC) [Entitic vol]83.1 mKMnaymr86.0-98.0The [facility] [place] SouthComment on above:Order Comment: No: Do not add to previous drawPerformed By: #### 29284 ####[address] [place] [address], USANucleated RBC/100 WBC (Bld) [Ratio]0 %Normal0-0The [facility] [place] SouthComment on above:Order Comment: No: Do not add to previous drawPerformed By: #### 69720 ####[facility] [place] [address], USAPLAT FPA028 10*3/rGCsnoeo950-116Njg [facility] [place] SouthComment on above:Order Comment: No: Do not add to previous drawPerformed By: #### 60187 ####[facility] [place] [address], USARBC (Bld) [#/Vol]4.31 10*6/uL Normal4.20-5.70The [facility] [place] SouthComment on above:Order Comment: No: Do not add to previous drawPerformed By: #### 42545 ####[facility] [place] [address], USAWBC (Bld) [#/Vol]9.97 10*3/uLNormal4.00-10.60The [facility] [place] [facility] Comment on above:Order Comment: No: Do not add to previous drawPerformed By: #### 12268 ####[facility] [place] [address], USAMAGNESIUM BLOODon 67-78-9339Fbmzfekns [Mass/Vol]2.4 mg/dLNormal1.9-2.7 The [facility] [place] SouthComment on above:Order Comment: No: Do not add to previous drawPerformed By: #### 91436, 55581 ####[facility] [place] [address], USAPOC GLUCOSE LABon 91-21-3649Sregkeb [Mass/Vol]181 mg/mHHetg62-904Tpq [facility] [place] SouthComment on above:Performed By: #### 87591 ####[facility] [place] [address], USAGlucose [Mass/Vol]202 mg/dLHigh 70-100The [facility] [place] SouthComment on above:Performed By: #### 16995 ####[facility] [place] [address], USAGlucose [Mass/Vol]250 mg/pMMyrq15-180Hqs [facility] [place] SouthComment on above:Performed By: #### 55422 ####[facility] [place] [address], USAGlucose [Mass/Vol]196 mg/dLHigh 70-100The [facility] [place] SouthComment on above:Performed By: #### 60794 ####[facility] [place] [address], USASODIUM URINE RANDOMon 18-59-7655Skkshz (U) [Moles/Vol]43 mmol/LNormal The [facility] [place] SouthComment on above:Order Comment: No: Do not add to previous drawResult Comment: There are no established reference values for random urine specimensPerformed By: #### 21240 ####[facility] [place] [address], USAUA,MICROSCOPIC REQUIREDon 33-89-9381Tzzkjjefyg (U)CLEARNormalCLEARThe [facility] [place] SouthComment on above:Order Comment: No: Do not add to previous draw Performed By: #### 66976 ####[facility] [place] [address], USABilirubin Ql (U)NegativeNormalNEGATIVEThe [facility] [place] SouthComment on above:Order Comment: No: Do not add to previous drawPerformed By: #### 13352 ####[facility] [place] [address], USABUDDING YEASTOCCAbnormalNONE SEENThe [facility] [place] SouthComment on above:Order Comment: No: Do not add to previous drawPerformed By: #### 67507 ####[facility] [place] [address], USAColor (U)YELLOWNormalYELLOWThe [facility] [place] SouthComment on above:Order Comment: No: Do not add to previous drawPerformed By: #### 98455 ####[facility] [place] [address], USAEPISNONE SEENNormalFEW,OCC,NONE SEENThe [facility] [place] SouthComment on above:Order Comment: No: Do not add to previous drawPerformed By: #### 23971 ####[facility] [place] [address], USAGlucose Ql (U)>=500 AbnormalNEGATIVEThe [facility] [place] SouthComment on above:Order Comment: No: Do not add to previous drawPerformed By: #### 91425 ####[facility] [place] [address], USAHemoglobin Ql (U)NegativeNormalNEGATIVEThe [facility] [place] SouthComment on above:Order Comment: No: Do not add to previous drawPerformed By: #### 15169 ####[facility] [place] [address], [place] KETONENegativeNormalNEGATIVEThe [facility] [place] SouthComment on above:Order Comment: No: Do not add to previous drawPerformed By: #### 76822 ####[facility] [place] [address], [place] LEUK ESTERNegativeNormalNEGATIVEThe [facility] [place] SouthComment on above:Order Comment: No: Do not add to previous drawPerformed By: #### 32875 ####[facility] [place] [address], [place] Nitrite Ql (U)NegativeNormalNEGATIVEThe [facility] [place] [facility] Comment on above:Order Comment: No: Do not add to previous drawPerformed By: #### 07132 ####[facility] [place] [address], USApH (U)8.0 [pH]Normal5.0-8.0The [facility] [place] [facility] Comment on above:Order Comment: No: Do not add to previous drawPerformed By: #### 18494 ####[facility] [place] [address], [facility] CENTERProtein Ql (U)30 mg/dLAbnormalNEGATIVEThe [facility] [place] SouthComment on above:Order Comment: No: Do not add to previous drawPerformed By: #### 71102 ####[facility] [place] [address], USARBCNONE SEENNormalNONE SEENThe [facility] [place] [facility] Comment on above:Order Comment: No: Do not add to previous drawPerformed By: #### 92730 ####[facility] [place] [place] [address], USASPEC GRAV1.594Vuzbhv0.015-1.020The [facility] Comment on above:Order Comment: No: Do not add to previous drawPerformed By: #### [id number] ####[facility] [place] [address], USAWBC UA0-2AbnormalNONE SEENThe [facility] Comment on above:Order Comment: No: Do not add to previous drawPerformed By: #### [id number] ####[facility] [facility] [place] [address], [facility]ICAL CENTERARTERIAL BLOOD GAS WITH ICAon 94-68-4151MEDX SCYWLZ04 mmol/LHigh-2-3 The [facility] SouthComment on above:Performed By: #### 61774 ####[facility] [place] [address], [place] DELIVERY SYSTEMSTriHealth Bethesda Butler HospitalComment on above:Performed By: #### 86459 ####[facility] [place] [address], USAHCO3 (Bld) [Moles/Vol]39 mmol/LCritically jhvc32-51Kcl [facility] SouthComment on above:Performed By: #### 51797 ####[facility] [place] [address], USAIONIZED CALCIUM1.05 mmol/LLow1.13-1.32The [facility] SouthComment on above:Performed By: #### 65370 ####[facility] [place] [address], USAOxygen (Bld) [Partial pressure]79 mm[Hg]Cuf90-783Dpb [facility] SouthComment on above:Result Comment: RESULTS CHECKED AND CALLED. ACCURATELY READ BACK BY Joaquim ELLINGTON RNPerformed By: #### 76047 ####[facility] [place] [address], USAOxygen saturation in Blood94.6 %Normal 94.0-97.0The [facility] SouthComment on above:Performed By: #### 88747 ####[facility] [place] [address], PFONTQ322 cgRwHrsovt34-87Ela [facility] SouthComment on above:Performed By: #### 88694 ####[facility] [place] [address], USApH (Bld)7.56 [pH]Critically high7.35-7.45The [facility] SouthComment on above:Result Comment: RESULTS CHECKED AND CALLED. ACCURATELY READ BACK BY Joaquim ELLINGTON RNPerformed By: #### 33689 ####[facility] [place] [address], [place] BASIC METABOLIC PANELon 64-50-4104Lqhsjjm [Mass/Vol]9.1 mg/dLNormal8.6-10.3The [facility] SouthComment on above:Order Comment: No: Do not add to previous drawPerformed By: #### 93096, 66611 ####[facility] [place] [address], USAChloride [Moles/Vol]88 mmol/NBnw81-124Xwh [facility] SouthComment on above:Order Comment: No: Do not add to previous drawPerformed By: #### 40291, 71077 ####[facility] [place] [address], [place] CO2 [Moles/Vol]31 mmol/YAiwibm88-04Mem [facility] Comment on above:Order Comment: No: Do not add to previous drawPerformed By: #### 13279, 35108 ####[facility] [place] [address], USACreatinine [Mass/Vol]1.31 mg/dLHigh0.70-1.30The [facility] SouthComment on above:Order Comment: No: Do not add to previous drawPerformed By: #### 09138, 54214 ####[facility] [place] [address], USAeGFR- non- 56 ml/min/1.73sq mAbnormal>60The [facility] SouthComment on above:Order Comment: No: Do not add to previous drawPerformed By: #### 41050, 32705 ####[facility] [place] [address], USAGFR/1.73 sq M.predicted among blacks MDRD (S/P/Bld) [Vol rate/Area] mL/min/{1.73_m2}Normal>60The [facility] SouthComment on above:Order Comment: No: Do not add to previous drawPerformed By: #### 16251, 30814 ####[facility] [place] [address], USAGlucose [Mass/Vol]221 mg/oHSamz49-079Lqs [facility] SouthComment on above:Order Comment: No: Do not add to previous drawPerformed By: #### 05873, 95454 ####[facility] [place] [address], USAPotassium [Moles/Vol]3.5 mmol/LNormal3.5-5.1The [facility] SouthComment on above:Order Comment: No: Do not add to previous drawPerformed By: #### 64958, 71017 ####[facility] [place] [address], USASodium [Moles/Vol]136 mmol/WKgirbj699-360Hea [facility] SouthComment on above:Order Comment: No: Do not add to previous drawPerformed By: #### 66036, 36742 ####[facility] [place] [address], [place] Urea nitrogen [Mass/Vol]49 mg/dLHigh7-25The [facility] Comment on above:Order Comment: No: Do not add to previous drawPerformed By: #### 51060, 94173 ####[facility] [place] [address], USACBC COMPLETE BLOOD COUNTon 44-78-2469Zdtbxggqmuc distribution width (RBC) [Ratio]14.1 %Rfkmdm15.5-15.0The [facility] SouthComment on above:Order Comment: No: Do not add to previous draw Performed By: #### 38206 ####[facility] [place] [address], USAHematocrit (Bld) [Volume fraction]38.1 %Low39.0-50.0The [facility] SouthComment on above:Order Comment: No: Do not add to previous drawPerformed By: #### 16494 ####[facility] [place] [address], [facility] MEDICAL CENTERHemoglobin (Bld) [Mass/Vol]12.6 g/dLLow13.0-17.0The [facility] SouthComment on above:Order Comment: No: Do not add to previous drawPerformed By: #### 83613 ####[facility] [place] [address], [facility] (RBC) [Entitic mass]27.2 oqFikzny47.0-33.0The [facility] Comment on above:Order Comment: No: Do not add to previous drawPerformed By: #### 88044 ####[facility] [place] [address], [facility]THC (RBC) [Mass/Vol]33.1 g/qJRftcps54.0-35.0The [facility] SouthComment on above:Order Comment: No: Do not add to previous draw Performed By: #### 52835 ####[facility] [place] [address], [facility]V (RBC) [Entitic vol]82.3 rZObzhfi10.0-98.0The [facility] SouthComment on above:Order Comment: No: Do not add to previous drawPerformed By: #### [id number] ####[facility] [place] [address], [facility]ICAL CENTERNucleated RBC/100 WBC (Bld) [Ratio]0 %Normal0-0The [facility] SouthComment on above:Order Comment: No: Do not add to previous drawPerformed By: #### 50392 ####[facility] [place] [address], [facility]ICAL CENTERPLAT SVS348 10*3/kXFmqqko801-309Dqi [facility] SouthComment on above: Order Comment: No: Do not add to previous drawPerformed By: #### 41711 ####[facility] [place] [address], [facility] RBC (Bld) [#/Vol]4.63 10*6/uLNormal4.20-5.70The [facility] SouthComment on above:Order Comment: No: Do not add to previous drawPerformed By: #### 11628 ####[facility] [facility] [place] [address], [facility] MEDICAL CENTERWBC (Bld) [#/Vol]10.16 10*3/uLNormal4.00-10.60The [facility] SouthComment on above:Order Comment: No: Do not add to previous drawPerformed By: #### 70886 ####[facility] [facility] [place] [address], USAFOOT RIGHT 3 VWSon 48-95-6445BMED RIGHT 3 VWS NormalThe [facility] SouthComment on above:Order Comment: OsteomyelitisMAGNESIUM BLOODon 24-85-5118Sdwsrzavw [Mass/Vol]2.2 mg/dLNormal 1.9-2.7The [facility] SouthComment on above:Order Comment: No: Do not add to previous drawPerformed By: #### 11168, 59951 ####[facility] [facility] [place] [address], [facility] CENTERPOC GLUCOSE LABon 13-89-5322Wsmydlt [Mass/Vol]300 mg/oOCowi68-858Dsx [facility] SouthComment on above:Performed By: #### 94605 ####[facility] [facility] [place] [address], [facility]ICAL CENTERGlucose [Mass/Vol]248 mg/dLHigh 70-100The [facility] SouthComment on above:Performed By: #### 21620 ####[facility] [place] [address], USAGlucose [Mass/Vol]225 mg/yPEjxe39-617Dyd [facility] SouthComment on above:Performed By: #### 54032 ####[facility] [place] [address], USAPORTABLE CHEST 1 VIEWon 80-81-8220CVLRIPJF CHEST 1 VIEWNormalThe [facility] Comment on above:Order Comment: AspirationBASIC METABOLIC PANELon 10-24-2021 Calcium [Mass/Vol]8.9 mg/dLNormal8.6-10.3The [facility] Comment on above:Order Comment: No: Do not add to previous drawPerformed By: #### 56417, 88106 ####[facility] [place] [address], USAChloride [Moles/Vol]95 mmol/YYnz81-999Kxx [facility] SouthComment on above:Order Comment: No: Do not add to previous drawPerformed By: #### 56476, 25265 ####[facility] [place] [address], USACO2 [Moles/Vol]32 mmol/WFero09-77Pom [facility] SouthComment on above:Order Comment: No: Do not add to previous drawPerformed By: #### 44630, 33504 ####[facility] [place] [address], USACreatinine [Mass/Vol]1.19 mg/dLNormal0.70-1.30The [facility] SouthComment on above: Order Comment: No: Do not add to previous drawPerformed By: #### 95717, 86718 ####[facility] [place] [address], [place] GFR/1.73 sq M.predicted among blacks MDRD (S/P/Bld) [Vol rate/Area] mL/min/{1.73_m2}Normal>60The [facility] SouthComment on above:Order Comment: No: Do not add to previous drawPerformed By: #### 05484, 38879 ####[facility] [place] [address], USAGFR/1.73 sq M.predicted among non-blacks MDRD (S/P/Bld) [Vol rate/Area]mL/min/{1.73_m2}Normal>60The [facility] Comment on above:Order Comment: No: Do not add to previous drawPerformed By: #### 08466, 51821 ####[facility] [place] [address], USAGlucose [Mass/Vol]148 mg/mOWpgl69-522Dxt [facility]Comment on above:Order Comment: No: Do not add to previous drawPerformed By: #### 21593, 33170 ####[facility] [place] [address], USAPotassium [Moles/Vol]3.5 mmol/LNormal3.5-5.1 The [facility] SouthComment on above:Order Comment: No: Do not add to previous drawPerformed By: #### 17571, 80186 ####[facility] [place] [address], USASodium [Moles/Vol]138 mmol/JPybdbm371-974Nmq [facility] SouthComment on above:Order Comment: No: Do not add to previous drawPerformed By: #### 97970, 61147 ####[facility] [place] [address], [place] Urea nitrogen [Mass/Vol]39 mg/dLHigh7-25The [facility] Comment on above:Order Comment: No: Do not add to previous drawPerformed By: #### 75941, 97443 ####[facility] [address], [facility]ICAL CENTERCBC COMPLETE BLOOD COUNTon 72-71-1377Euxmxrnnyiw distribution width (RBC) [Ratio]14.2 %Yupdob57.5-15.0The [facility]Comment on above:Order Comment: No: Do not add to previous draw Performed By: #### 90721 ####[facility] [facility] [place] [address], USAHematocrit (Bld) [Volume fraction]34.7 %Low39.0-50.0The [facility]Comment on above:Order Comment: No: Do not add to previous drawPerformed By: #### 64823 ####[facility] [place] [address], USAHemoglobin (Bld) [Mass/Vol]11.3 g/dLLow13.0-17.0The [facility]Comment on above:Order Comment: No: Do not add to previous drawPerformed By: #### [id number] ####[facility] [facility] [place] [address], [facility] (RBC) [Entitic mass]27.4 dkPhvgsp74.0-33.0The [facility] Comment on above:Order Comment: No: Do not add to previous drawPerformed By: #### 40986 ####[facility] [facility] [place] [address], [facility]ICAL CENTERMCHC (RBC) [Mass/Vol]32.6 g/dJFaatjk15.0-35.0The [facility]Comment on above:Order Comment: No: Do not add to previous draw Performed By: #### 41407 ####[facility] [facility] [place] [address], [facility]V (RBC) [Entitic vol]84.0 hQLwmzdq22.0-98.0The [facility] SouthComment on above:Order Comment: No: Do not add to previous drawPerformed By: #### 12947 ####[facility] [place] [address], [facility] MEDICAL CENTERNucleated RBC/100 WBC (Bld) [Ratio]0 %Normal0-0The [facility] SouthComment on above:Order Comment: No: Do not add to previous drawPerformed By: #### 65906 ####[facility] [place] [address], USAPLAT FGX463 10*3/yVWmhgky286-802Bhr [facility]Comment on above: Order Comment: No: Do not add to previous drawPerformed By: #### 93750 ####[facility] [place] [address], [facility] RBC (Bld) [#/Vol]4.13 10*6/uLLow4.20-5.70The [facility] Comment on above:Order Comment: No: Do not add to previous drawPerformed By: #### 51769 ####[facility] [facility] [place] [address], [facility] MEDICAL CENTERWBC (Bld) [#/Vol]9.88 10*3/uLNormal4.00-10.60The [facility] SouthComment on above:Order Comment: No: Do not add to previous draw Performed By: #### 00011 ####[facility] [facility] [place] [place] [address], [facility] CENTERMAGNESIUM BLOODon 97-03-6853Zghlatovo [Mass/Vol]2.1 mg/dLNormal1.9-2.7The [facility] SouthComment on above:Order Comment: No: Do not add to previous drawPerformed By: #### 01494, 24520 ####[facility] [facility] [place] [place] [address], [facility] POC GLUCOSE LABon 89-94-8033Txljjdu [Mass/Vol]215 mg/kFUjtc19-908Inx [facility] SouthComment on above:Performed By: #### 39442 ####[facility] [place] [address], USAGlucose [Mass/Vol]247 mg/jZGyvi25-680Pau [facility] SouthComment on above:Performed By: #### 44801 ####[facility] [place] [address], USAGlucose [Mass/Vol]196 mg/gMSwwb33-526Eop [facility] SouthComment on above:Performed By: #### 08019 ####[facility] [place] [address], [place] Glucose [Mass/Vol]173 mg/zFMfzt40-194Teo [facility] Comment on above:Performed By: #### 14947 ####[facility] [place] [address], USABASIC METABOLIC PANELon 10-23-2021 Calcium [Mass/Vol]8.7 mg/dLNormal8.6-10.3The [facility] Comment on above:Order Comment: No: Do not add to previous drawRefused draw nurse NicholePerformed By: #### 74458, 28335 ####[facility] [place] [address], USAChloride [Moles/Vol]103 mmol/L Kzbcys21-021Jjc [facility] SouthComment on above:Order Comment: No: Do not add to previous drawRefused draw nurse NicholePerformed By: #### 60015, 41781 ####[facility] [place] [address], USACO2 [Moles/Vol]28 mmol/NHtkeqf82-39Eok [facility] SouthComment on above:Order Comment: No: Do not add to previous drawRefused draw nurse NicholePerformed By: #### 88215, 02555 ####[facility] [place] [address], USACreatinine [Mass/Vol]1.09 mg/dLNormal0.70-1.30The [facility] Comment on above:Order Comment: No: Do not add to previous drawRefused draw nurse NicholePerformed By: #### 91812, 08626 ####[facility] [place] [address], USAGFR/1.73 sq M.predicted among blacks MDRD (S/P/Bld) [Vol rate/Area]mL/min/{1.73_m2}Normal>60The [facility] SouthComment on above:Order Comment: No: Do not add to previous drawRefused draw nurse NicholePerformed By: #### 80028, 74290 ####[facility] [place] [address], USAGFR/1.73 sq M.predicted among non-blacks MDRD (S/P/Bld) [Vol rate/Area]mL/min/{1.73_m2} Normal>60The [facility] SouthComment on above:Order Comment: No: Do not add to previous drawRefused draw nurse NicholePerformed By: #### 62552, 11034 ####[facility] [place] [address], USAGlucose [Mass/Vol]160 mg/pRQegu28-288Ynr [facility] SouthComment on above:Order Comment: No: Do not add to previous drawRefused draw nurse NicholePerformed By: #### 90482, 37503 ####[facility] [place] [address], USAPotassium [Moles/Vol]4.3 mmol/LNormal3.5-5.1The [facility] SouthComment on above:Order Comment: No: Do not add to previous drawRefused draw nurse NicholePerformed By: #### 98926, 39501 ####[facility] [place] [address], USASodium [Moles/Vol]138 mmol/LNormal 136-145The [facility] SouthComment on above:Order Comment: No: Do not add to previous drawRefused draw nurse JosholePerformed By: #### 29907, 86663 ####[facility] [place] [address], USAUrea nitrogen [Mass/Vol]38 mg/dLHigh7-25The [facility] SouthComment on above:Order Comment: No: Do not add to previous drawRefused draw nurse JosholePerformed By: #### 21418, 93703 ####[facility] [place] [address], USACBC COMPLETE BLOOD COUNTon 18-38-8000Mrsgaynfned distribution width (RBC) [Ratio]14.1 %Normal 11.5-15.0The [facility] SouthComment on above:Order Comment: No: Do not add to previous drawRefused draw nurse JosholePerformed By: #### 62660 ####[facility] [place] [address], USAHematocrit (Bld) [Volume fraction]33.5 %Low39.0-50.0The [facility] SouthComment on above:Order Comment: No: Do not add to previous drawRefused draw nurse JosholePerformed By: #### 65291 ####[facility] [place] [address], USAHemoglobin (Bld) [Mass/Vol]10.4 g/dLLow13.0-17.0The [facility] SouthComment on above:Order Comment: No: Do not add to previous drawRefused draw nurse Iram Performed By: #### 66098 ####[facility] [place] [address], USAMCH (RBC) [Entitic mass]26.9 pgLow27.0-33.0The [facility] SouthComment on above:Order Comment: No: Do not add to previous drawRefused draw nurse NicholePerformed By: #### 16262 ####[facility] [facility] [place] [address], [facility] MCHC (RBC) [Mass/Vol]31.0 g/dLLow32.0-35.0The [facility] SouthComment on above:Order Comment: No: Do not add to previous drawRefused draw nurse JosholePerformed By: #### 50959 ####[facility] [facility] [place] [place] [address], [facility] CENTERMCV (RBC) [Entitic vol]86.8 fL Uzeypf89.0-98.0The [facility] SouthComment on above:Order Comment: No: Do not add to previous drawRefused draw nurse JosholePerformed By: #### 19062 ####[facility] [facility] [place] [place] [address], [facility] CENTERNucleated RBC/100 WBC (Bld) [Ratio]0 %Normal0-0The [facility] SouthComment on above:Order Comment: No: Do not add to previous drawRefused draw nurse JosholePerformed By: #### 73770 ####[facility] [facility] [place] [place] [address], USAPLAT LFH311 10*3/uLNormal 150-400The [facility] SouthComment on above:Order Comment: No: Do not add to previous drawRefused draw nurse JosholePerformed By: #### 32086 ####[facility] [facility] [place] [place] [address], [facility] CENTERRBC (Bld) [#/Vol]3.86 10*6/uLLow4.20-5.70The [facility] SouthComment on above:Order Comment: No: Do not add to previous drawRefused draw nurse NicholePerformed By: #### 12718 ####[facility] [place] [address], USAWBC (Bld) [#/Vol]6.91 10*3/uLNormal4.00-10.60The [facility] SouthComment on above: Order Comment: No: Do not add to previous drawRefused draw nurse Iram Performed By: #### 15955 ####[facility] [place] [address], USAMAGNESIUM BLOODon 23-95-0249Kugcficbv [Mass/Vol]2.3 mg/dLNormal1.9-2.7The [facility] SouthComment on above:Order Comment: No: Do not add to previous drawRefused draw nurse NicholePerformed By: #### 27769, 18014 ####[facility] [place] [address], USAPOC GLUCOSE LABon 62-00-7582Oxnkalc [Mass/Vol]176 mg/dL Prmu22-697Zgu [facility] SouthComment on above:Performed By: #### 51015 ####[facility] [place] [address], USAGlucose [Mass/Vol]134 mg/uSYzja87-365Vbd [facility] SouthComment on above:Performed By: #### 63824 ####[facility] [place] [address], USAGlucose [Mass/Vol]124 mg/dLHigh 70-100The [facility] SouthComment on above:Performed By: #### 39871 ####[facility] [place] [address], USAGlucose [Mass/Vol]338 mg/yXSgks55-985Rhg [facility] SouthComment on above:Performed By: #### 66350 ####[facility] [place] [address], USABASIC METABOLIC PANELon 83-23-4095Dspauug [Mass/Vol]8.2 mg/dLLow8.6-10.3The [facility] SouthComment on above:Order Comment: No: Do not add to previous drawPerformed By: #### 82159 ####[facility] [place] [address], USAChloride [Moles/Vol]100 mmol/VVvcgel45-589Ccz [facility] SouthComment on above:Order Comment: No: Do not add to previous draw Performed By: #### 76771 ####[facility] [place] [address], USACO2 [Moles/Vol]30 mmol/WYafptl28-52Qtb [facility] SouthComment on above:Order Comment: No: Do not add to previous drawPerformed By: #### 83515 ####[facility] [place] [address], USACreatinine [Mass/Vol]1.16 mg/dLNormal 0.70-1.30The [facility] SouthComment on above:Order Comment: No: Do not add to previous drawPerformed By: #### 55938 ####[facility] [place] [address], USAGFR/1.73 sq M.predicted among blacks MDRD (S/P/Bld) [Vol rate/Area]mL/min/{1.73_m2}Normal>60The [facility] SouthComment on above:Order Comment: No: Do not add to previous drawPerformed By: #### 76834 ####[facility] [place] [address], USAGFR/1.73 sq M.predicted among non- blacks MDRD (S/P/Bld) [Vol rate/Area]mL/min/{1.73_m2}Normal>60The [facility] SouthComment on above:Order Comment: No: Do not add to previous drawPerformed By: #### 10724 ####[facility] [place] [address], USAGlucose [Mass/Vol]190 mg/mYAqgn95-971Xxs [facility] SouthComment on above:Order Comment: No: Do not add to previous drawPerformed By: #### 02964 ####[facility] [place] [address], USAPotassium [Moles/Vol]4.0 mmol/L Normal3.5-5.1The [facility] SouthComment on above:Order Comment: No: Do not add to previous drawPerformed By: #### 93798 ####[facility] [place] [address], USASodium [Moles/Vol]137 mmol/KVutgqw165-023Yjk [facility] SouthComment on above:Order Comment: No: Do not add to previous drawPerformed By: #### 81268 ####[facility] [place] [address], [place] Urea nitrogen [Mass/Vol]42 mg/dLHigh7-25The [facility] Comment on above:Order Comment: No: Do not add to previous drawPerformed By: #### 71825 ####[facility] [place] [address], [facility]ENTERPOC GLUCOSE LABon 18-88-7402Rfteeqy [Mass/Vol]153 mg/mBFgaw00-955Wuo [facility] SouthComment on above:Performed By: #### 14544 ####[facility] [place] [address], [place] Glucose [Mass/Vol]135 mg/cREyhz81-114Vfw [facility] Comment on above:Performed By: #### 26666 ####[facility] [place] [address], USAGlucose [Mass/Vol]266 mg/dLHigh 70-100The [facility] SouthComment on above:Performed By: #### 44913 ####[facility] [place] [address], USAGlucose [Mass/Vol]201 mg/sCSbea39-450Nvu [facility] SouthComment on above:Performed By: #### 48221 ####[facility] [place] [address], USABASIC METABOLIC PANELon 40-81-6322Oduryxu [Mass/Vol]9.4 mg/dLNormal8.6-10.3The [facility] SouthComment on above:Performed By: #### 07278, 44037 ####[facility] [place] [place] [address], USAChloride [Moles/Vol]98 mmol/TLnfurq99-098Zdc [facility] SouthComment on above:Performed By: #### 57549, 94796 ####[facility] [facility] [place] [address], USACO2 [Moles/Vol]32 mmol/RCrsf35-28 The [facility] SouthComment on above:Performed By: #### 48698, 65337 ####[facility] [facility] [place] [address], USACreatinine [Mass/Vol]1.04 mg/dLNormal0.70-1.30The [facility] SouthComment on above:Performed By: #### 19452, 14404 ####[address] [place] [address], [place] GFR/1.73 sq M.predicted among blacks MDRD (S/P/Bld) [Vol rate/Area] mL/min/{1.73_m2}Normal>60The [facility] SouthComment on above:Performed By: #### 71056, 91424 ####[facility] [place] [place] [address], USAGFR/1.73 sq M.predicted among non- blacks MDRD (S/P/Bld) [Vol rate/Area]mL/min/{1.73_m2}Normal>60The [facility] SouthComment on above:Performed By: #### 32321, 65963 ####[facility] [place] [address], [place] Glucose [Mass/Vol]210 mg/jHEcvw16-639Zli [facility] Comment on above:Performed By: #### 23733, 26143 ####[place] [address] [facility] [place] [address], USAPotassium [Moles/Vol]4.1 mmol/LNormal3.5-5.1The [facility] SouthComment on above: Performed By: #### , 12969 ####[facility] [place] [address], USASodium [Moles/Vol]139 mmol/KYgnzfv516-027Rsp [facility] SouthComment on above:Performed By: #### 90756, 60242 ####[facility] [place] [address], USAUrea nitrogen [Mass/Vol]37 mg/dLHigh7-25The [facility] SouthComment on above:Performed By: #### 97637, 46902 ####[facility] [facility] [place] [address], USAPOC GLUCOSE LABon 00-84-6843Soxjpan [Mass/Vol]230 mg/oHQjef21-177Pmm [facility] SouthComment on above:Performed By: #### 11143 ####[facility] [place] [address], USAGlucose [Mass/Vol]229 mg/dLHigh 70-100The [facility] SouthComment on above:Performed By: #### 74209 ####[facility] [place] [address], USAGlucose [Mass/Vol]276 mg/hACgxd29-097Gml [facility] SouthComment on above:Performed By: #### 33055 ####[facility] [place] [address], USAGlucose [Mass/Vol]171 mg/dLHigh 70-100The [facility] SouthComment on above:Performed By: #### 18181 ####[facility] [place] [address], USAVANCOMYCIN TROUGHon 64-65-3834MOMRCHDRTK TROU14.7 mcg/mLNormal5.0-20.0 The [facility] SouthComment on above:Performed By: #### 55412, 98237 ####[facility] [place] [address], USABASIC METABOLIC PANELon 51-96-7236Gurtvtn [Mass/Vol]8.9 mg/dLNormal 8.6-10.3The [facility] SouthComment on above:Order Comment: No: Do not add to previous drawPerformed By: #### 74220 ####[facility] [place] [address], USAChloride [Moles/Vol]99 mmol/IGuubjb11-973Fhf [facility] SouthComment on above:Order Comment: No: Do not add to previous drawPerformed By: #### 17391 ####[facility] [place] [address], USACO2 [Moles/Vol] 31 mmol/BVtvdie37-99Jjr [facility] SouthComment on above: Order Comment: No: Do not add to previous drawPerformed By: #### 97925 ####[facility] [place] [address], [place] Creatinine [Mass/Vol]0.94 mg/dLNormal0.70-1.30The [facility] SouthComment on above:Order Comment: No: Do not add to previous drawPerformed By: #### 73295 ####[facility] [place] [address], USAGFR/1.73 sq M.predicted among blacks MDRD (S/P/Bld) [Vol rate/Area]mL/min/{1.73_m2}Normal>60The [facility] Comment on above:Order Comment: No: Do not add to previous drawPerformed By: #### 56303 ####[facility] [facility] [place] [address], USAGFR/1.73 sq M.predicted among non-blacks MDRD (S/P/Bld) [Vol rate/Area]mL/min/{1.73_m2}Normal>60The [facility] Comment on above:Order Comment: No: Do not add to previous drawPerformed By: #### 54263 ####[facility] [facility] [place] [address], USAGlucose [Mass/Vol]110 mg/eQEszk76-757Ufx [facility] SouthComment on above:Order Comment: No: Do not add to previous drawPerformed By: #### 27794 ####[facility] [facility] [place] [address], USAPotassium [Moles/Vol]4.1 mmol/LNormal3.5-5.1The [facility] SouthComment on above:Order Comment: No: Do not add to previous drawPerformed By: #### 82273 ####[facility] [place] [address], USASodium [Moles/Vol]137 mmol/SEgdnmk953-468Rlk [facility] SouthComment on above:Order Comment: No: Do not add to previous drawPerformed By: #### 36937 ####[facility] [place] [address], USAUrea nitrogen [Mass/Vol]27 mg/dL High7-25The [facility] SouthComment on above:Order Comment: No: Do not add to previous drawPerformed By: #### 09506 ####[facility] [place] [address], USAPOC GLUCOSE LABon 31-77-2253Yetwxhz [Mass/Vol]205 mg/aTChuj85-615Jsa [facility] SouthComment on above:Performed By: #### 69021 ####[facility] [place] [address], USAGlucose [Mass/Vol]186 mg/dLHigh 70-100The [facility] SouthComment on above:Performed By: #### 06920 ####[facility] [place] [address], USAGlucose [Mass/Vol]270 mg/jIHera04-468Jbv [facility] SouthComment on above:Performed By: #### 33998 ####[facility] [place] [address], USAGlucose [Mass/Vol]291 mg/dLHigh 70-100The [facility] SouthComment on above:Performed By: #### 89094 ####[facility] [place] [address], USAAPTTon 40-03-3167nEVS Coag (Bld) [Time]31.0 kEpbcek26.0-35.0The [facility] SouthComment on above:Order Comment: No: Do not add to previous drawResult Comment: ALL RESULTS MUST BE INTERPRETED WITH RESPECT TO BLOOD DRAWING ARTIFACTOR DILUTION ERROR OF ANTICOAGULANT AT THE TIME OF SAMPLING.THE APTT SHOULD NOT BE USED TO MONITOR UNFRACTIONATED HEPARIN THERAPY, THIS LABORATORY NO LONGER HAS AN ESTABLISHED THERAPEUTIC RANGE BASEDON THE APTT. IT IS RECOMMENDED THAT THE UFH - HEPARIN ASSAY (ANTI- XAACTIVITY) BE USED FOR THIS PURPOSE.Performed By: #### 48061, 70279 ####[facility] [facility] [place] [address], [facility] BASIC METABOLIC PANELon 37-23-9329Yifwqsx [Mass/Vol]8.8 mg/dLNormal8.6-10.3The [facility] SouthComment on above:Order Comment: No: Do not add to previous drawPerformed By: #### 38555, 28282, 25759 ####[facility] [place] [address], USAChloride [Moles/Vol]104 mmol/FKphkwi58-469Oxm [facility] SouthComment on above:Order Comment: No: Do not add to previous drawPerformed By: #### 41651, 67520, 33388 ####[facility] [place] [address], USACO2 [Moles/Vol]29 mmol/FQsxpio33-26Pth [facility] SouthComment on above:Order Comment: No: Do not add to previous drawPerformed By: #### 19495, 85422, 12213 ####[facility] [place] [address], USACreatinine [Mass/Vol]0.80 mg/dLNormal 0.70-1.30The [facility] SouthComment on above:Order Comment: No: Do not add to previous drawPerformed By: #### 44777, 96815, 09412 ####[facility] [facility] [place] [place] [address], [place] GFR/1.73 sq M.predicted among blacks MDRD (S/P/Bld) [Vol rate/Area] mL/min/{1.73_m2}Normal>60The [facility] SouthComment on above:Order Comment: No: Do not add to previous drawPerformed By: #### 86517, 95656, 58387 ####[facility] [place] [address], USAGFR/1.73 sq M.predicted among non-blacks MDRD (S/P/Bld) [Vol rate/Area]mL/min/{1.73_m2}Normal>60The [facility] Comment on above:Order Comment: No: Do not add to previous drawPerformed By: #### 62039, 91156, 47674 ####[facility] [place] [address], USAGlucose [Mass/Vol]118 mg/dXPezk97-832Ghk [facility] SouthComment on above:Order Comment: No: Do not add to previous drawPerformed By: #### 18930, 25617, 55901 ####[facility] [place] [address], USAPotassium [Moles/Vol]4.4 mmol/L Normal3.5-5.1The [facility] SouthComment on above:Order Comment: No: Do not add to previous drawPerformed By: #### 83444, 84226, 86537 ####[facility] [place] [address], [place] Sodium [Moles/Vol]138 mmol/BWrxdxv697-952Ntj [facility] Comment on above:Order Comment: No: Do not add to previous drawPerformed By: #### 74169, 38764, 16974 ####[facility] [place] [address], USAUrea nitrogen [Mass/Vol]18 mg/dLNormal7-25The [facility] SouthComment on above:Order Comment: No: Do not add to previous drawPerformed By: #### 23418, 86938, 57453 ####[facility] [place] [address], USACBC COMPLETE BLOOD COUNTon 37-86-8074Mepllylfzhh distribution width (RBC) [Ratio]14.6 %Normal 11.5-15.0The [facility] SouthComment on above:Order Comment: No: Do not add to previous drawPerformed By: #### 85267 ####[facility] [place] [address], [facility]ICAL CENTERHematocrit (Bld) [Volume fraction]29.5 %Low39.0-50.0The [facility] SouthComment on above:Order Comment: No: Do not add to previous drawPerformed By: #### 78356 ####[facility] [facility] [place] [address], [facility] Hemoglobin (Bld) [Mass/Vol]9.4 g/dLLow13.0-17.0The [facility] SouthComment on above:Order Comment: No: Do not add to previous drawPerformed By: #### 11418 ####[facility] [facility] [place] [address], [facility] (RBC) [Entitic mass]27.5 urNhoyac95.0-33.0The [facility] SouthComment on above:Order Comment: No: Do not add to previous drawPerformed By: #### 05969 ####[facility] [facility] [place] [place] [address], [facility] CENTERMCHC (RBC) [Mass/Vol]31.9 g/dLLow32.0-35.0The [facility] SouthComment on above:Order Comment: No: Do not add to previous drawPerformed By: #### 85916 ####[facility] [facility] [place] [place] [address], [facility] CENTERMCV (RBC) [Entitic vol]86.3 fL Kdqzxd67.0-98.0The [facility] SouthComment on above:Order Comment: No: Do not add to previous drawPerformed By: #### 41462 ####[facility] [place] [address].[place] [address], USANucleated RBC/100 WBC (Bld) [Ratio]0 %Normal0-0The [facility] Comment on above:Order Comment: No: Do not add to previous drawPerformed By: #### 02768 ####[facility] [place] [address], USAPLAT DIU250 10*3/dZMrzxra162-369Jjd [facility] SouthComment on above:Order Comment: No: Do not add to previous drawPerformed By: #### 69050 ####[facility] [place] [address], [facility]ICAL CENTERRBC (Bld) [#/Vol]3.42 10*6/uLLow4.20-5.70The [facility] SouthComment on above:Order Comment: No: Do not add to previous draw Performed By: #### 62747 ####[facility] [place] [address], [facility] MEDICAL CENTERWBC (Bld) [#/Vol]6.23 10*3/uLNormal4.00-10.60The [facility] SouthComment on above:Order Comment: No: Do not add to previous drawPerformed By: #### 14656 ####[facility] [place] [address], USAMAGNESIUM BLOODon 10-19-2021 Magnesium [Mass/Vol]1.7 mg/dLLow1.9-2.7The [facility] Comment on above:Order Comment: No: Do not add to previous drawPerformed By: #### 28497, 83128, 30504 ####[facility] [place] [address], USAPHOSPHORUS BLOODon 26-98-0843Podxdvjoe [Mass/Vol]3.3 mg/dLNormal2.5-5.0The [facility] SouthComment on above:Order Comment: No: Do not add to previous drawPerformed By: #### 42200, 11285, 92593 ####[facility] [facility] [place] [address], [facility] POC GLUCOSE LABon 37-41-7067Buhgbxd [Mass/Vol]170 mg/kMKgna27-638Lur [facility] SouthComment on above:Performed By: #### 07402 ####[address] [place] [address], [facility] MEDICAL CENTERGlucose [Mass/Vol]349 mg/aSOizt64-292Snn [facility] SouthComment on above:Performed By: #### 26776 ####[facility] [place] [address].[place] [address], [facility] MEDICAL CENTERGlucose [Mass/Vol]216 mg/uWQzgk04-913Gpl [facility] SouthComment on above:Performed By: #### 86612 ####[address] [place] [address], [facility] Glucose [Mass/Vol]126 mg/rHHbqo65-215Yne [facility] Comment on above:Performed By: #### 93019 ####[address] [place] [address], [facility]ICAL CENTERPROTHROMBIN TIMEon 91-65-9428VCK Coag (PPP) [Relative time]1.10 {INR}Normal0.91-1.16The [facility] SouthComment on above:Order Comment: No: Do not add to previous draw Result Comment: [facility] RECOMMENDED INR FOR WARFARIN THERAPY CONDITION INRPROPHYLAXIS OF VENOUS THROMBOSIS 2-3(HIGH-RISK SURGERY)TREATMENT OF VENOUS THROMBOSIS 2-3TREATMENT OF PULMONARY EMBOLISM 2-3PREVENTION OF SYSTEMIC EMBOLISM: 2-3 ACUTE MYOCARDIAL INFARCTION TISSUE HEART VALVES VALVULAR HEART DISEASE ATRIAL FIBRILLATION RECURRENT SYSTEMIC EMBOLISMMECHANICAL HEART VALVE 2.5-3.5 FROM: ORAL ANTICOAGULANTS. MECHANISM OF ACTION, CLINICALEFFECTIVENESS, AND OPTIMAL THERAPEU TIC RANGE. [id number];108:231S-246S.Performed By: #### 68949, 41459 ####[facility] PT Coag (PPP) [Time]14.2 cOoyyru31.3-14.8The [facility] Comment on above:Order Comment: No: Do not add to previous drawResult Comment: ALL RESULTS MUST BE INTERPRETED WITH RESPECT TO BLOOD DRAWING ARTIFACTOR DILUTION ERROR OF ANTICOAGULANT AT THE TIME OF SAMPLING.Performed By: #### 11776, 62288 ####[facility] [facility].[address]APTTon 68-62-6472pNWQ Coag (Bld) [Time]29.9 vHdrayx35.0-35.0The [facility] SouthComment on above:Order Comment: No: Do not add to previous drawResult Comment: ALL RESULTS MUST BE INTERPRETED WITH RESPECT TO BLOOD DRAWING ARTIFACTOR DILUTION ERROR OF ANTICOAGULANT AT THE TIME OF SAMPLING.THE APTT SHOULD NOT BE USED TO MONITOR UNFRACTIONATED HEPARIN THERAPY, THIS LABORATORY NO LONGER HAS AN ESTABLISHED THERAPEUTIC RANGE BASEDON THE APTT. IT IS RECOMMENDED THAT THE UFH - HEPARIN ASSAY (ANTI- XAACTIVITY) BE USED FOR THIS PURPOSE.Performed By: #### 25918, 95977 ####[facility] [facility].[address] BASIC METABOLIC PANELon 21-58-0925Cucgdnj [Mass/Vol]8.4 mg/dLLow8.6-10.3The [facility] SouthComment on above:Order Comment: No: Do not add to previous drawPerformed By: #### 77562, 67567, 48305, 45188, 96031 ####[facility] [place] [address], [facility] Chloride [Moles/Vol]108 mmol/AVffu66-120Ulq [facility] Comment on above:Order Comment: No: Do not add to previous drawPerformed By: #### 18588, 98930, 88736, 76093, 69993 ####[facility] [place] [address], USACO2 [Moles/Vol]26 mmol/LNormal 21-31The [facility] SouthComment on above:Order Comment: No: Do not add to previous drawPerformed By: #### 23822, 40553, 57035, 67387, 90507 ####[facility] [place] [address], [place] Creatinine [Mass/Vol]0.70 mg/dLNormal0.70-1.30The [facility] SouthComment on above:Order Comment: No: Do not add to previous drawPerformed By: #### 02660, 66160, 72161, 00419, 94361 ####[facility] [place] [address], USAGFR/1.73 sq M.predicted among blacks MDRD (S/P/Bld) [Vol rate/Area]mL/min/{1.73_m2}Normal>60The [facility] SouthComment on above:Order Comment: No: Do not add to previous drawPerformed By: #### 15412, 47240, 95217, 87350, 73492 ####[facility] [place] [address], USAGFR/1.73 sq M.predicted among non-blacks MDRD (S/P/Bld) [Vol rate/Area]mL/min/{1.73_m2} Normal>60The [facility] SouthComment on above:Order Comment: No: Do not add to previous drawPerformed By: #### 35931, 96007, 21236, 78993, 62433 ####[facility] [place] [address], USAGlucose [Mass/Vol]114 mg/fWSadn98-631Frr [facility] SouthComment on above:Order Comment: No: Do not add to previous drawPerformed By: #### 49001, 93759, 05420, 04590, 50732 ####[facility] [place] [address], USAPotassium [Moles/Vol]4.4 mmol/L Normal3.5-5.1The [facility] SouthComment on above:Order Comment: No: Do not add to previous drawPerformed By: #### 40522, 50429, 86536, 34057, 35033 ####[facility] [place] [address], USASodium [Moles/Vol]139 mmol/QRbgnos822-780Gwq [facility] SouthComment on above:Order Comment: No: Do not add to previous draw Performed By: #### 87822, 31409, 00987, 81497, 16039 ####[facility] [place] [address], USAUrea nitrogen [Mass/Vol]17 mg/dLNormal7-25The [facility] SouthComment on above:Order Comment: No: Do not add to previous drawPerformed By: #### 14365, 81939, 39026, 79171, 25320 ####[facility] [place] [address], USABNP (B-TYPE NATRIURETIC PEPTIDE)on 86-80-2563Ygnhsjtoqei peptide B (Bld) [Mass/Vol]124 pg/mLHigh0-100The [facility] SouthComment on above:Order Comment: No: Do not add to previous drawResult Comment: Given the appropriate clinical setting a BNP result of >100 pg/mLindicates congestive heart failure.Performed By: #### 79566 ####[facility] [place] [address], [facility] CENTERCB W/DIFFon 73-99-5162YQB IMM GRANS0.0 10*3/uLNormal0.0-0.2The [facility] SouthComment on above:Order Comment: Missed notified rn Cony trying to get pic to come Performed By: #### 14936 ####[facility] [place] [address], USAABS NEUTROPHILS3.4 10*3/uLNormal1.6-7.6The [facility] SouthComment on above:Order Comment: Missed notified rn Cony trying to get pic to comePerformed By: #### 03425 ####[facility] [place] [address], USABasophils (Bld) [#/Vol]0.0 10*3/uLNormal0.0-0.2The [facility] SouthComment on above:Order Comment: Missed notified rn Cony trying to get pic to come Performed By: #### 98487 ####[facility] [place] [address], USABasophils/100 WBC (Bld)0.7 %Normal0.0-1.0The [facility] SouthComment on above:Order Comment: Missed notified rn Cony trying to get pic to comePerformed By: #### [id number] ####[facility] [address], USAEosinophils (Bld) [#/Vol]0.1 10*3/uLNormal0.0-0.5The [facility] SouthComment on above:Order Comment: Missed notified mike Donnelly trying to get pic to come Performed By: #### [id number] ####[facility] [place] [address], USAEosinophils/100 WBC (Bld)1.5 %Normal0.0-6.0The [facility] SouthComment on above:Order Comment: Missed notified rn Cony trying to get pic to comePerformed By: #### [id number] ####[facility] [place] [address], [facility] Erythrocyte distribution width (RBC) [Ratio]14.5 %Gjpmxb23.5-15.0The [facility] SouthComment on above:Order Comment: Missed notified rn Cony trying to get pic to comePerformed By: #### [id number] ####[facility] [place] [address], [facility] CENTERHematocrit (Bld) [Volume fraction]27.8 %Low39.0-50.0The [facility] Comment on above:Order Comment: Missed notified rn Cony trying to get pic to comePerformed By: #### [id number] ####[facility] [place] [address], [facility] CENTERHemoglobin (Bld) [Mass/Vol]9.0 g/dLLow 13.0-17.0The [facility] SouthComment on above:Order Comment: Missed notified mike Cony trying to get pic to comePerformed By: #### [id number] ####[facility] [place] [address], [place] IMMATURE GRANS0.4 %Normal0.0-1.0The [facility] SouthComment on above:Order Comment: Missed notified rn Cony trying to get pic to come Performed By: #### [id number] ####[facility] [place] [address], [facility] CENTERLymphocytes (Bld) [#/Vol]1.6 10*3/uLNormal1.2-4.0The [facility] SouthComment on above:Order Comment: Missed notified rn Cony trying to get pic to comePerformed By: #### [id number] ####[facility] [facility] [place] [address], [facility] Lymphocytes/100 WBC (Bld)28.8 %Qggghk45.0-45.0The [facility] SouthComment on above:Order Comment: Missed notified rn Cony trying to get pic to comePerformed By: #### [id number] ####[facility] [facility] [place] [address], [facility] CENTERMCH (RBC) [Entitic mass]27.5 pgNormal 27.0-33.0The [facility] SouthComment on above:Order Comment: Missed notified rn Cony trying to get pic to comePerformed By: #### 49030 ####[facility] [place] [address].[place] [address], [facility] MCHC (RBC) [Mass/Vol]32.4 g/nWYevhfv22.0-35.0The [facility] SouthComment on above:Order Comment: Missed notified mike Donnelly trying to get pic to comePerformed By: #### 47091 ####[place] [address] [facility] [place] [place] [address], [facility] CENTERMCV (RBC) [Entitic vol]85.0 sYDfkflg01.0-98.0 The [facility] SouthComment on above:Order Comment: Missed notified mike Donnelly trying to get pic to comePerformed By: #### [id number] ####[facility] [place] [address].[place] [address], [facility] Monocytes (Bld) [#/Vol]0.4 10*3/uLNormal0.1-1.0The [facility] SouthComment on above:Order Comment: Missed notified mike Donnelly trying to get pic to comePerformed By: #### [id number] ####[place] [address], [facility] CENTERMONOS7.1 %Normal5.0-12.0The [facility] SouthComment on above:Order Comment: Missed notified rn Cony trying to get pic to comePerformed By: #### 58329 ####[facility] [place] [address], USANeutrophils/100 WBC (Bld) 61.5 %Sqnvpk82.0-72.0The [facility] SouthComment on above: Order Comment: Missed notified rn Cony trying to get pic to comePerformed By: #### 84657 ####[facility] [place] [address], USANucleated RBC/100 WBC (Bld) [Ratio]0 %Normal0-0The [facility] SouthComment on above:Order Comment: Missed notified rn Cony trying to get pic to comePerformed By: #### 55378 ####[facility] [place] [address], USAPLAT [id number] 10*3/uLNormal 150-400The [facility] SouthComment on above:Order Comment: Missed notified rn Cony trying to get pic to comePerformed By: #### 84054 ####[facility] [place] [address], [place] RBC (Bld) [#/Vol]3.27 10*6/uLLow4.20-5.70The [facility] Comment on above:Order Comment: Missed notified rn Cony trying to get pic to comePerformed By: #### 76211 ####[facility] [place] [address], USAWBC (Bld) [#/Vol]5.48 10*3/uLNormal4.00-10.60 The [facility] SouthComment on above:Order Comment: Missed notified rn Cony trying to get pic to comePerformed By: #### 99486 ####[facility] [place] [address], [place] LIVER BATTERYon 51-56-8873Yuestfg [Mass/Vol]3.3 g/dLLow3.5-5.7The [facility] SouthComment on above:Order Comment: No: Do not add to previous drawPerformed By: #### 71817, 19954, 63698, 91535, 67298 ####[facility] [place] [address], USAALKALINE [id number] IU/GVxuzdh90-511Oxy [facility] SouthComment on above:Order Comment: No: Do not add to previous drawPerformed By: #### 12962, 90686, 99378, 89301, 68668 ####[facility] [place] [address], USAALT [Catalytic activity/Vol]14 U/LNormal7-52The [facility] SouthComment on above:Order Comment: No: Do not add to previous drawPerformed By: #### 72648, 31680, 96617, 63120, 35377 ####[facility] [place] [address], USAAST [Catalytic activity/Vol]17 U/TWqvzef50-12Iki [facility] SouthComment on above:Order Comment: No: Do not add to previous drawPerformed By: #### 55593, 17310, 28209, 05367, 18766 ####[facility] [place] [address], USABilirubin [Mass/Vol]0.3 mg/dLNormal0.3-1.0The [facility] SouthComment on above:Order Comment: No: Do not add to previous drawPerformed By: #### 50391, 04908, 85268, 14706, 59013 ####[facility] [place] [address], [place] Bilirubin.direct [Mass/Vol]0.1 mg/dLNormal0.0-0.2The [facility] SouthComment on above:Order Comment: No: Do not add to previous draw Performed By: #### 64163, 07923, 62385, 37662, 79354 ####[facility] [place] [address], [facility] CENTERProtein [Mass/Vol]6.1 g/dL Normal6.0-8.3The [facility] SouthComment on above:Order Comment: No: Do not add to previous drawPerformed By: #### 62208, 03545, 68290, 60988, 95878 ####[facility] [facility] [place] [address], [facility] CENTERMAGNESIUM BLOODon 59-04-8594Qhypnitia [Mass/Vol]1.8 mg/dLLow1.9-2.7 The [facility] SouthComment on above:Order Comment: No: Do not add to previous drawPerformed By: #### 17922, 79923, 04289, 35763, 53985 ####[facility] [place] [address], [facility] PHOSPHORUS BLOODon 88-31-2616Exvtcwrtv [Mass/Vol]2.8 mg/dLNormal2.5-5.0The [facility] SouthComment on above:Order Comment: No: Do not add to previous drawPerformed By: #### 81635, 69275, 77469, 33456, 76875 ####[facility] [facility] [place] [address], [facility] POC GLUCOSE LABon 38-54-0504Duqkrbc [Mass/Vol]127 mg/xWGihw97-774Qsa [facility] SouthComment on above:Performed By: #### 04143 ####[facility] [facility] [place] [address], [facility] CENTERPORTABLE CHEST 1 VIEWon 42-66-4235DYBLKSKV CHEST 1 VIEWNormalThe [facility] SouthComment on above:Order Comment: AtelectasisPROTHROMBIN TIMEon 10-18-2021 INR Coag (PPP) [Relative time]1.12 {INR}Normal0.91-1.16The [facility] SouthComment on above:Order Comment: No: Do not add to previous draw Result Comment: [facility] RECOMMENDED INR FOR WARFARIN THERAPY CONDITION INRPROPHYLAXIS OF VENOUS THROMBOSIS 2-3(HIGH-RISK SURGERY)TREATMENT OF VENOUS THROMBOSIS 2-3TREATMENT OF PULMONARY EMBOLISM 2-3PREVENTION OF SYSTEMIC EMBOLISM: 2-3 ACUTE MYOCARDIAL INFARCTION TISSUE HEART VALVES VALVULAR HEART DISEASE ATRIAL FIBRILLATION RECURRENT SYSTEMIC EMBOLISMMECHANICAL HEART VALVE 2.5-3.5 FROM: ORAL ANTICOAGULANTS. MECHANISM OF ACTION, CLINICALEFFECTIVENESS, AND OPTIMAL THERAPEU TIC RANGE. [id number];108:231S-246S.Performed By: #### 80670, 71872 ####[facility] [facility] [place] [address], [facility] PT Coag (PPP) [Time]14.4 uCfarsz69.3-14.8The [facility] Comment on above:Order Comment: No: Do not add to previous drawResult Comment: ALL RESULTS MUST BE INTERPRETED WITH RESPECT TO BLOOD DRAWING ARTIFACTOR DILUTION ERROR OF ANTICOAGULANT AT THE TIME OF SAMPLING.Performed By: #### 56478, 78286 ####[facility] [facility] [place] [address], [facility] CENTERTROPONIN-Ion 05-70-2336Jeozbcit I.cardiac [Mass/Vol]0.00 ng/mL Normal0.00-0.04The [facility] SouthComment on above:Order Comment: No: Do not add to previous drawResult Comment: REFERENCE RANGES: 0.00 - 0.04 ng/ml NORMAL 0.05 - 0.50 ng/ml INDETERMINATE > 0.50 ng/ml CONSISTENT WITH AN M.I.Performed By: #### 18237, 04224, 51164, 00534, 58909 ####[facility] [place] [address], USACALCIUM IONIZEDon 96-90-0085Kmglyxj, Ionized, Serum5.6 mg/dLNormal4.5-5.6The [facility] Comment on above:Performed By: #### CBC #### [facility] [address] [address] [address] Terrence GundersonMAGNESIUMon 93-22-0455Sdokqtmzx [Mass/Vol]1.9 mg/dLNormal1.8-2.4 The [facility] HospitalComment on above:Performed By: #### CBC #### [facility] [address] [place] [address] Dr. Terrence GundersonPROF CHEM 8 (BAS METB)on 47-17-7156Tlqoz gap [Moles/Vol]9.0 mmol/LNormalAshtabula General HospitalComment on above:Performed By: #### CBC #### [facility] [address] [place] [address] Dr. Terrence GundersonCalcium [Mass/Vol]9.0 mg/dLNormal8.5-10.1[facility] Comment on above:Performed By: #### CBC #### [facility] [address] [place] [address] Dr. Terrence GundersonChloride [Moles/Vol]103 mmol/HGaigjo72-367BdsAshtabula General Hospital Comment on above:Performed By: #### CBC #### [facility] [address] [place] [address] Dr. Terrence GundersonCO2 [Moles/Vol]31.3 mmol/LYcsxst57.0-32.0[facility] Comment on above:Performed By: #### CBC #### [facility] [address] [place], [place] [address] Dr. Terrence GundersonCreatinine [Mass/Vol]0.80 mg/dLNormal0.70-1.30The [facility] HospitalComment on above:Performed By: #### CBC #### [facility] [address] [place] [address] Dr. Terrence CampbellGFR-AF MAURITIAN>60Normal>=60The [facility] HospitalComment on above:Performed By: #### CBC #### [facility] [address] [place] [address] Dr. Terrence CampbellGFR-NON AF MAURITIAN>60Normal>=60The [facility] HospitalComment on above:Performed By: #### CBC #### [facility] [address] [place] [address] Dr. Terrence GundersonGlucose [Mass/Vol]168 mg/dLCritically hnwm64-061Cce [facility] HospitalComment on above:Performed By: #### CBC #### [facility] [address] [place] [address] Dr. Terrence GundersonPotassium [Moles/Vol]4.3 mmol/LNormal3.5-5.1[facility] Comment on above:Performed By: #### CBC #### [facility] [address] [place] [address] Dr. Terrence GundersonSodium [Moles/Vol]139 mmol/XYczsco236-782Ilz [facility] Comment on above:Performed By: #### CBC #### [facility] [address] [place] [address] Dr. Terrence GundersonUrea nitrogen [Mass/Vol]25.0 mg/dLCritically high7.0-18.0The [facility]Healthment on above:Performed By: #### CBC #### [facility] [address] [place] [address] Dr. Terrence Saldana nitrogen/Creatinine [Mass ratio]31.2 mg/mgNormalThe [facility] HospitalComment on above:Performed By: #### CBC #### [facility] [address] [place] [address] Dr. Terrence GundersonHIPS BILATERAL 2 VWS WITH PELVISon 82-48-7770WTBE BILATERAL 2 VWS WITH PELVISNoBarberton Citizens HospitalComment on above:Order Comment: EvaluateCBC AUTO DIFFon 70-83-6416VMKL #0.1 103/ulNormal0.0-0.1[facility] HospitalComment on above:Performed By: #### CBC #### [facility] [address] [address] [address] Terrence GundersonBasophils/100 WBC (Bld)0.8 %Normal0.2-2.0[facility] Comment on above:Performed By: #### CBC #### [facility] [address] [place] [address] Dr. Terrence Tan #0.1 103/ulNormal0.0-0.7The [facility] HospitalComment on above: Performed By: #### CBC #### [facility] [address] [place] [address] Dr. Terrence Campbellosinophils/100 WBC (Bld)1.9 %Normal0.9-7.0[facility] Comment on above:Performed By: #### CBC #### [facility] [address] [place] [address] Dr. Terrence Campbellrythrocyte distribution width (RBC) [Ratio]13.9 %Rnrcig81.0-15.0 [facility] HospitalComment on above:Performed By: #### CBC #### [facility] [address] [place] [address] Dr. Terrence GundersonHematocrit (Bld) [Volume fraction]30.8 %Critically low42.0-54.0 [facility] HospitalComment on above:Performed By: #### CBC #### [facility] [address] [place] [address] Dr. Terrence GundersonHemoglobin (Bld) [Mass/Vol]9.7 g/dLCritically low14.0-18.0[facility] HospitalComment on above:Performed By: #### CBC #### [facility] [address] [place] [address] Dr. Terrence Sanchez #0.02 10e3/ulNormal0.00-0.03The [facility] HospitalComment on above:Performed By: #### CBC #### [facility] [address] [place] [address] Dr. Terrence Sanchez %0.3 %Normal0.0-0.5The [facility] HospitalComment on above: Performed By: #### CBC #### [facility] [address] [place] [address] Dr. Terrence Bland #1.9 103/ulNormal1.2-3.8The [facility] HospitalComment on above:Performed By: #### CBC #### [facility] [address] [place] [address] Dr. Terrence Freemanhocytes/100 WBC (Bld)29.6 %Tsdmqw97.5-60.0The [facility] HospitalComment on above:Performed By: #### CBC #### [facility] [address] [place] [address] Dr. Terrence EliUAL DIFF REQNONormalThe [facility] HospitalComment on above: Performed By: #### CBC #### [facility] [address] [place] [address] Dr. Terrence Amanda (RBC) [Entitic mass]28.0 mpIhsizv16.9-34.0The [facility] HospitalComment on above:Performed By: #### CBC #### [facility] [address] [place] [address] Dr. Terrence Amanda (RBC) [Mass/Vol]31.5 g/rBQulrtp02.9-35.2The [facility] HospitalComment on above:Performed By: #### CBC #### [facility] [address] [place] [address] Dr. Terrence Amanda (RBC) [Entitic vol]89.0 fVGtqday11.0-94.0The [facility] HospitalComment on above:Performed By: #### CBC #### [facility] [address] [place] [address] Dr. Terrence Benton #0.5 103/ulNormal0.3-0.8The [facility] HospitalComment on above:Performed By: #### CBC #### [facility] [address] [place] [address] Dr. Terrence Tomlinsonocytes/100 WBC (Bld)7.3 %Normal1.7-12.0The [facility] Comment on above:Performed By: #### CBC #### [facility] [address] [place] [address] Dr. Terrence Nash #3.8 103/ulNormal1.4-6.5The [facility] HospitalComment on above:Performed By: #### CBC #### [facility] [address] [place] [address] Dr. Terrence Howardutrophils/100 WBC (Bld)60.1 %Ioxqsh39.0-75.0The [facility] HospitalComment on above:Performed By: #### CBC #### [facility] [address] [place] [address] Dr. Terrence Sanchez mean volume (Bld) [Entitic vol]10.2 fLNormal9.5-13.5The [facility] HospitalComment on above:Performed By: #### CBC #### [facility] [address] [place] [address] Dr. Terrence GundersonPLT266 103/lqKqehxl119-711Aik [facility] HospitalComment on above: Performed By: #### CBC #### [facility] [address] [place] [address] Dr. Terrence GundersonRBC3.46 106/ulCritically low4.70-6.10The [facility] HospitalComment on above:Performed By: #### CBC #### [facility] [address] [place] [address] Dr. Terrence GundersonWBC6.3 103/ulNormal4.0-11.0The [facility] HospitalComment on above: Performed By: #### CBC #### [facility] [address] [place] [address] Dr. Terrence GundersonMAGNESIUMon 08-14-0211Wbejlbqec [Mass/Vol]2.1 mg/dLNormal1.8-2.4 The [facility] HospitalComment on above:Performed By: #### MG, BMP #### [facility] [address] [address] [address] Terrence GundersonPROF CHEM 8 (BAS METB)on 51-29-4291Nqvca gap [Moles/Vol]10.4 mmol/LNormalThe [facility] HospitalComment on above:Performed By: #### MG, BMP #### [facility] [address] [address] [address] Terrence GundersonCalcium [Mass/Vol]8.9 mg/dLNormal8.5-10.1The [facility] Comment on above:Performed By: #### MG, BMP #### [facility] [address] [place] [address] Dr. Terrence GundersonChloride [Moles/Vol]100 mmol/LSfgoqa63-766YdaAshtabula General Hospital Comment on above:Performed By: #### MG, BMP #### [facility] [address] [address] [address] Terrence GundersonCO2 [Moles/Vol]29.3 mmol/OXynhfh84.0-32.0[facility] Comment on above:Performed By: #### MG, BMP #### [facility] [address] [address] [address] Terrence GundersonCreatinine [Mass/Vol]0.93 mg/dLNormal0.70-1.30[facility] HospitalComment on above:Performed By: #### MG, BMP #### [facility] [address] [address] [address] Terrence CampbellGFR-AF MAURITIAN>60Normal>=60The [facility] HospitalComment on above:Performed By: #### MG, BMP #### [facility] [address] [place] [address] Dr. Terrence CampbellGFR-NON AF MAURITIAN>60Normal>=60The [facility] HospitalComment on above:Performed By: #### MG, BMP #### [facility] [address] [address] [address] Terrence GundersonGlucose [Mass/Vol]149 mg/dLCritically womh14-975Zme [facility] HospitalComment on above:Performed By: #### MG, BMP #### [facility] [address] [address] [address] Terrence GundersonPotassium [Moles/Vol]4.7 mmol/LNormal3.5-5.1The [facility] Comment on above:Performed By: #### MG, BMP #### [facility] [address] [address] [address] Terrence GundersonSodium [Moles/Vol]135 mmol/LCritically pgz160-830Dkm [facility] HospitalComment on above:Performed By: #### MG, BMP #### [facility] [address] [address] [address] Terrence GundersonUrea nitrogen [Mass/Vol]21.0 mg/dLCritically high7.0-18.0The [facility] HospitalComment on above:Performed By: #### MG, BMP #### [facility] [address] [address] [address] Terrence Saldana nitrogen/Creatinine [Mass ratio]22.6 mg/mgNormalThe [facility] HospitalComment on above:Performed By: #### MG, BMP #### [facility] [address] [address] [address] Terrence Gonsalez METABOLIC PANELon 83-93-4929Jvkfubb [Mass/Vol]8.7 mg/dL Normal8.6-10.3The [facility] SouthComment on above:Order Comment: No: Do not add to previous drawPerformed By: #### 30248 ####[facility] [place] [address], USAChloride [Moles/Vol]100 mmol/FDhksat58-208Twr [facility] SouthComment on above:Order Comment: No: Do not add to previous drawPerformed By: #### 81894 ####[facility] [place] [address], [place] CO2 [Moles/Vol]29 mmol/YLzrnhh00-01Vxy [facility] Comment on above:Order Comment: No: Do not add to previous drawPerformed By: #### 76754 ####[facility] [place] [address], USACreatinine [Mass/Vol]1.20 mg/dLNormal0.70-1.30The [facility] SouthComment on above:Order Comment: No: Do not add to previous draw Performed By: #### 94661 ####[facility] [place] [address], USAGFR/1.73 sq M.predicted among blacks MDRD (S/P/Bld) [Vol rate/Area]mL/min/{1.73_m2}Normal>60The [facility] Comment on above:Order Comment: No: Do not add to previous drawPerformed By: #### 06763 ####[facility] [place] [address], USAGFR/1.73 sq M.predicted among non-blacks MDRD (S/P/Bld) [Vol rate/Area]mL/min/{1.73_m2}Normal>60The [facility] Comment on above:Order Comment: No: Do not add to previous drawPerformed By: #### 73342 ####[facility] [place] [address], USAGlucose [Mass/Vol]280 mg/vXQysc34-274Kxm [facility] SouthComment on above:Order Comment: No: Do not add to previous drawPerformed By: #### 41191 ####[facility] [place] [address], USAPotassium [Moles/Vol]4.9 mmol/LNormal3.5-5.1The [facility] SouthComment on above:Order Comment: No: Do not add to previous drawPerformed By: #### 06793 ####[facility] [place] [address], USASodium [Moles/Vol]135 mmol/ZTsr495-085Lxq [facility] SouthComment on above:Order Comment: No: Do not add to previous drawPerformed By: #### 68744 ####[facility] [place] [address], USAUrea nitrogen [Mass/Vol]51 mg/dL High7-e [facility] SouthComment on above:Order Comment: No: Do not add to previous drawPerformed By: #### 41816 ####[facility] [place] [address], USACBC COMPLETE BLOOD COUNT on 00-18-2258Ulmjevappzp distribution width (RBC) [Ratio]13.8 %Sevems94.5-15.0 The [facility] SouthComment on above:Order Comment: No: Do not add to previous drawPerformed By: #### 63872 ####[facility] [place] [address], [facility] MEDICAL CENTERHematocrit (Bld) [Volume fraction]29.8 %Low39.0-50.0The [facility] SouthComment on above:Order Comment: No: Do not add to previous drawPerformed By: #### [id number] ####[facility] [place] [address], [place] Hemoglobin (Bld) [Mass/Vol]9.3 g/dLLow13.0-17.0The [facility] SouthComment on above:Order Comment: No: Do not add to previous drawPerformed By: #### 33260 ####[facility] [address], [facility] CENTERMCH (RBC) [Entitic mass]27.6 muLyesev52.0-33.0The [facility] SouthComment on above:Order Comment: No: Do not add to previous drawPerformed By: #### 71963 ####[facility] [place] [address], [facility]THC (RBC) [Mass/Vol]31.2 g/dLLow32.0-35.0The [facility] SouthComment on above:Order Comment: No: Do not add to previous drawPerformed By: #### 05544 ####[facility] [facility] [place] [address], [facility] [place] [facility]ANTV (RBC) [Entitic vol]88.4 fL Nhminw02.0-98.0The [facility] SouthComment on above:Order Comment: No: Do not add to previous drawPerformed By: #### 96812 ####[facility] [place] [address], USANucleated RBC/100 WBC (Bld) [Ratio]0 %Normal0-0The [facility] Comment on above:Order Comment: No: Do not add to previous drawPerformed By: #### 09962 ####[facility] [facility] [place] [address], USAPLAT COE179 10*3/dMNufvdt067-448Cvb [facility] SouthComment on above:Order Comment: No: Do not add to previous drawPerformed By: #### [id number] ####[facility] [facility] [place] [address], [facility] CENTERRBC (Bld) [#/Vol]3.37 10*6/uLLow4.20-5.70The [facility] SouthComment on above:Order Comment: No: Do not add to previous draw Performed By: #### 86739 ####[facility] [facility] [place] [address], [facility]ICAL CENTERWBC (Bld) [#/Vol]7.23 10*3/uLNormal4.00-10.60The [facility] SouthComment on above:Order Comment: No: Do not add to previous drawPerformed By: #### [id number] ####[facility] [place] [address], USAPOC GLUCOSE LABon 08-29-2021 Glucose [Mass/Vol]274 mg/rPImyf73-383Sig [facility] Comment on above:Performed By: #### 25316 ####[facility] [place] [address], USAGlucose [Mass/Vol]379 mg/dLHigh 70-100The [facility] SouthComment on above:Performed By: #### 77348 ####[facility] [place] [address], USAARTERIAL BLOOD GAS W/COOXon 44-90-0123DSTP EXCESS6 mmol/OWlhh-2-3Btw [facility] SouthComment on above:Performed By: #### 67535 ####[facility] [place] [address], [place] COHB0.8 %Normal0.0-1.5The [facility] SouthComment on above: Performed By: #### 38284 ####[facility] [place] [address], USADELIVERY SYSTEMSNASAL CANNULANormalThe [facility] SouthComment on above:Performed By: #### 43206 ####[facility] [place] [address], USAHCO3 (Bld) [Moles/Vol]31 mmol/LCritically dvlx51-19Kia [facility] Comment on above:Performed By: #### 78418 ####[facility] [place] [address], USALPM2.0 LPMNormalThe [facility] SouthComment on above:Performed By: #### 09078 ####[facility] [place] [address], [facility]ICAL CENTERMETHB1.0 %Normal 0.0-1.5The [facility] SouthComment on above:Performed By: #### 21981 ####[facility] [place] [address], [facility] MEDICAL CENTEROxygen (Bld) [Partial pressure]108 mm[Hg]Rziscu66-476Ekt [facility] SouthComment on above:Performed By: #### 23551 ####[facility] [facility] [place] [address], [facility] MEDICAL CENTEROxygen saturation in Blood95.6 %Nskrmo98.0-97.0The [facility] Comment on above:Performed By: #### 71765 ####[facility] [facility] [place] [address], SFJMXZ938 xaFxBxalaf94-94Wta [facility] SouthComment on above:Performed By: #### 86659 ####[facility] [facility] [place] [address], [facility] pH (Bld)7.45 [pH]Normal7.35-7.45The [facility] SouthComment on above:Performed By: #### 57031 ####[facility] [facility] [place] [address], [facility] CENTERTHB9.6 g/dLLow12.0-16.3The [facility] SouthComment on above:Performed By: #### 12469 ####[facility] [facility] [place] [address], [facility]ICAL CENTERBASIC METABOLIC PANELon 70-23-5541Mncfxwk [Mass/Vol]8.7 mg/dLNormal8.6-10.3The [facility] SouthComment on above:Order Comment: No: Do not add to previous drawPerformed By: #### 16711 ####[facility] [place] [address], USAChloride [Moles/Vol]98 mmol/ZQytbxr91-602Sxa [facility] SouthComment on above:Order Comment: No: Do not add to previous drawPerformed By: #### 79701 ####[facility] [place] [address], USACO2 [Moles/Vol]28 mmol/LNormal 21-31The [facility] SouthComment on above:Order Comment: No: Do not add to previous drawPerformed By: #### 40439 ####[facility] [place] [address], USACreatinine [Mass/Vol]1.37 mg/dLHigh0.70-1.30The [facility] SouthComment on above:Order Comment: No: Do not add to previous drawPerformed By: #### 58382 ####[facility] [place] [address], USAeGFR- non- Tnjvlfuf26 ml/min/1.73sq mAbnormal>60The [facility] SouthComment on above:Order Comment: No: Do not add to previous drawPerformed By: #### 51768 ####[facility] [place] [address], USAGFR/1.73 sq M.predicted among blacks MDRD (S/P/Bld) [Vol rate/Area]mL/min/{1.73_m2}Normal>60The [facility] Comment on above:Order Comment: No: Do not add to previous drawPerformed By: #### 31590 ####[facility] [place] [address], USAGlucose [Mass/Vol]142 mg/vGOhlk63-790Ppf [facility] SouthComment on above:Order Comment: No: Do not add to previous drawPerformed By: #### 13519 ####[facility] [place] [address], USAPotassium [Moles/Vol]4.4 mmol/LNormal3.5-5.1The [facility] SouthComment on above:Order Comment: No: Do not add to previous drawPerformed By: #### 50584 ####[facility] [place] [address], USASodium [Moles/Vol]134 mmol/MWhi987-978Oov [facility] SouthComment on above:Order Comment: No: Do not add to previous drawPerformed By: #### 21468 ####[facility] [place] [address], USAUrea nitrogen [Mass/Vol]52 mg/dL High7-25The [facility] SouthComment on above:Order Comment: No: Do not add to previous drawPerformed By: #### 38397 ####[facility] [place] [address], USACalcium [Mass/Vol]9.6 mg/dLNormal8.6-10.3The [facility] SouthComment on above:Order Comment: No: Do not add to previous drawPerformed By: #### 30856, 66366, 17428 ####[facility] [place] [address], [place] Chloride [Moles/Vol]97 mmol/RZvc91-475Jqs [facility] Comment on above:Order Comment: No: Do not add to previous drawPerformed By: #### 09834, 68295, 37318 ####[facility] [place] [address], USACO2 [Moles/Vol]30 mmol/AZjraiy90-03Gva [facility] SouthComment on above:Order Comment: No: Do not add to previous drawPerformed By: #### 48013, 23492, 24747 ####[facility] [place] [address], USACreatinine [Mass/Vol]1.17 mg/dL Normal0.70-1.30The [facility] SouthComment on above:Order Comment: No: Do not add to previous drawPerformed By: #### 90246, 97407, 92744 ####[facility] [place] [address], [place] GFR/1.73 sq M.predicted among blacks MDRD (S/P/Bld) [Vol rate/Area] mL/min/{1.73_m2}Normal>60The [facility] SouthComment on above:Order Comment: No: Do not add to previous drawPerformed By: #### 33706, 95634, 20035 ####[facility] [place] [address], USAGFR/1.73 sq M.predicted among non-blacks MDRD (S/P/Bld) [Vol rate/Area]mL/min/{1.73_m2}Normal>60The [facility] Comment on above:Order Comment: No: Do not add to previous drawPerformed By: #### 67913, 99558, 02866 ####[facility] [place] [address], USAGlucose [Mass/Vol]110 mg/eBEklj68-783Fdo [facility] SouthComment on above:Order Comment: No: Do not add to previous drawPerformed By: #### 11353, 88711, 63277 ####[facility] [place] [address], USAPotassium [Moles/Vol]4.4 mmol/L Normal3.5-5.1The [facility] SouthComment on above:Order Comment: No: Do not add to previous drawPerformed By: #### 73322, 88221, 60634 ####[facility] [place] [address], [facility] Sodium [Moles/Vol]137 mmol/JFtptzx439-879Ghl [facility] Comment on above:Order Comment: No: Do not add to previous drawPerformed By: #### 72733, 16912, 60689 ####[facility] [facility] [place] [address], [facility] MEDICAL CENTERUrea nitrogen [Mass/Vol]51 mg/dLHigh7-25The [facility] SouthComment on above:Order Comment: No: Do not add to previous drawPerformed By: #### 67376, 65150, 65670 ####[facility] [facility] [place] [address], [facility]ICAL CENTERBNP (B-TYPE NATRIURETIC PEPTIDE)on 55-95-7084Lnjqentlthk peptide B (Bld) [Mass/Vol]18 pg/mLNormal0-100 The [facility] SouthComment on above:Order Comment: Yes: Add to Previous draw if ableResult Comment: Given the appropriate clinical setting a BNP result of >100 pg/mLindicates congestive heart failure.Performed By: #### 28598 ####[address] [place] [address], [facility] CENTERCB COMPLETE BLOOD COUNTon 98-81-3185Qdmcoibvlqf distribution width (RBC) [Ratio]13.8 %Qcksyw22.5-15.0The [facility] SouthComment on above:Order Comment: No: Do not add to previous drawPerformed By: #### 36732 ####[facility] [facility] [place] [address], [facility] Hematocrit (Bld) [Volume fraction]29.2 %Low39.0-50.0The [facility] SouthComment on above:Order Comment: No: Do not add to previous draw Performed By: #### 75639 ####[place] [address] [facility] [place] [address], [facility]ICAL CENTERHemoglobin (Bld) [Mass/Vol]9.2 g/dLLow13.0-17.0The [facility] SouthComment on above:Order Comment: No: Do not add to previous drawPerformed By: #### 67735 ####[facility] [place] [address], [facility] (RBC) [Entitic mass]27.4 pg Nokgmq17.0-33.0The [facility] SouthComment on above:Order Comment: No: Do not add to previous drawPerformed By: #### 31439 ####[facility] [facility] [place] [place] [address], [facility] CENTERMCHC (RBC) [Mass/Vol]31.5 g/dLLow32.0-35.0The [facility] SouthComment on above:Order Comment: No: Do not add to previous drawPerformed By: #### 93600 ####[facility] [facility] [place] [place] [address], [facility] MCV (RBC) [Entitic vol]86.9 jUBdimhx58.0-98.0The [facility] SouthComment on above:Order Comment: No: Do not add to previous drawPerformed By: #### 53290 ####[facility] [facility] [place] [place] [address], [facility] MEDICAL CENTERNucleated RBC/100 WBC (Bld) [Ratio]0 %Normal0-0The [facility] SouthComment on above:Order Comment: No: Do not add to previous drawPerformed By: #### 00970 ####[facility] [facility] [place] [place] [address], [facility] MEDICAL CENTERPLAT VHF913 10*3/xMLvurpc964-571Ncg [facility] SouthComment on above:Order Comment: No: Do not add to previous drawPerformed By: #### 70883 ####[facility] [facility] [place] [address], [facility] MEDICAL CENTERRBC (Bld) [#/Vol]3.36 10*6/uLLow 4.20-5.70The [facility] SouthComment on above:Order Comment: No: Do not add to previous drawPerformed By: #### 27923 ####[facility] [facility] [place] [place] [address], [facility] MEDICAL CENTERWBC (Bld) [#/Vol]8.71 10*3/uLNormal4.00-10.60The [facility] SouthComment on above: Order Comment: No: Do not add to previous drawPerformed By: #### 93159 ####[facility] [facility] [place] [place] [address], [facility] CBC W/DIFFon 28-58-4900YRC IMM GRANS0.0 10*3/uLNormal0.0-0.2The [facility] SouthComment on above:Performed By: #### 00934 ####[facility] [place] [address].[place] [address], [facility] CENTERABS NEUTROPHILS4.1 10*3/uLNormal1.6-7.6The [facility] SouthComment on above: Performed By: #### 27485 ####[place] [address] [facility] [place] [place] [address], [facility] CENTERBasophils (Bld) [#/Vol]0.1 10*3/uLNormal0.0-0.2The [facility] SouthComment on above:Performed By: #### 00151 ####[facility] [facility] [place] [place] [address], [facility] Basophils/100 WBC (Bld)1.0 %Normal0.0-1.0The [facility] Comment on above:Performed By: #### [address] ####[place] [address], [facility] MEDICAL CENTEREosinophils (Bld) [#/Vol]0.4 10*3/uLNormal0.0-0.5The [facility] SouthComment on above: Performed By: #### 98683 ####[facility] [place] [address], USAEosinophils/100 WBC (Bld)4.3 %Normal0.0-6.0The [facility] SouthComment on above:Performed By: #### 26364 ####[facility] [place] [address], [place] Erythrocyte distribution width (RBC) [Ratio]13.7 %Zkpcfj67.5-15.0The [facility] SouthComment on above:Performed By: #### 78100 ####[facility] [place] [address], USAHematocrit (Bld) [Volume fraction]32.0 %Low39.0-50.0The [facility] Comment on above:Performed By: #### 15287 ####[facility] [place] [address], USAHemoglobin (Bld) [Mass/Vol]10.1 g/dLLow13.0-17.0The [facility] SouthComment on above: Performed By: #### 99249 ####[facility] [place] [address], USAIMMATURE GRANS0.4 %Normal0.0-1.0The [facility] SouthComment on above:Performed By: #### 26942 ####[facility] [place] [address], USALymphocytes (Bld) [#/Vol]2.9 10*3/uLNormal1.2-4.0The [facility] SouthComment on above:Performed By: #### 18504 ####[facility] [place] [address] [place] [address], USALymphocytes/100 WBC (Bld)34.3 %Normal 20.0-45.0The [facility] SouthComment on above:Performed By: #### 62343 ####[facility] [facility] [place] [address], [facility] (RBC) [Entitic mass]27.6 icUxflly96.0-33.0The [facility] SouthComment on above:Performed By: #### 62570 ####[address] [place] [address], [facility]THC (RBC) [Mass/Vol]31.6 g/dLLow32.0-35.0The [facility] SouthComment on above: Performed By: #### 17376 ####[address] [place] [address], [facility]V (RBC) [Entitic vol]87.4 gKVnbjku74.0-98.0The [facility] SouthComment on above:Performed By: #### 33126 ####[facility] [facility] [place] [address], [facility] Monocytes (Bld) [#/Vol]0.9 10*3/uLNormal0.1-1.0The [facility] SouthComment on above:Performed By: #### 40195 ####[address] [place] [address], CRFGORBL18.2 %Normal5.0-12.0The [facility] SouthComment on above:Performed By: #### 95092 ####[facility] [facility] [place] [place] [address], [facility] Neutrophils/100 WBC (Bld)49.8 %Xakbul30.0-72.0The [facility] SouthComment on above:Performed By: #### 17862 ####[address] [place] [address], [facility] MEDICAL CENTERNucleated RBC/100 WBC (Bld) [Ratio]0 %Normal0-0The [facility] SouthComment on above: Performed By: #### 85923 ####[facility] [place] [address], [facility]ICAL CENTERPLAT RPT450 10*3/dDZvfyuu036-218Vlu [facility] SouthComment on above:Performed By: #### 26846 ####[facility] [facility] [place] [address], [facility]ICAL CENTERRBC (Bld) [#/Vol] 3.66 10*6/uLLow4.20-5.70The [facility] SouthComment on above: Performed By: #### 86038 ####[facility] [facility] [place] [address], [facility] CENTERWBC (Bld) [#/Vol]8.30 10*3/uLNormal4.00-10.60The [facility] SouthComment on above:Performed By: #### 35744 ####[facility] [facility] [place] [address], [facility] MAGNESIUM BLOODon 09-59-8914Ojdyqcqqr [Mass/Vol]2.4 mg/dLNormal1.9-2.7The [facility] SouthComment on above:Order Comment: No: Do not add to previous drawPerformed By: #### 56107, 97995, 09763 ####[facility] [facility] [place] [address], [facility] CENTERPHOSPHORUS BLOODon 34-53-2069Ihnqjklft [Mass/Vol]4.9 mg/dLNormal2.5-5.0The [facility] SouthComment on above:Order Comment: No: Do not add to previous draw Performed By: #### 36591, 81047, 33229 ####[facility] [place] [address].[place] [address], [facility] MEDICAL CENTERPOC GLUCOSE LABon 08-28-2021 Glucose [Mass/Vol]179 mg/tDJydw78-497Gdn [facility] Comment on above:Performed By: #### 34626 ####[facility] [place] [address], USAGlucose [Mass/Vol]255 mg/dLHigh 70-100The [facility] SouthComment on above:Performed By: #### 63871 ####[facility] [place] [address], USAGlucose [Mass/Vol]171 mg/pYKuar75-835Leo [facility] SouthComment on above:Performed By: #### 07727 ####[facility] [facility] [place] [address], USAGlucose [Mass/Vol]120 mg/dLHigh 70-100The [facility] SouthComment on above:Performed By: #### 07216 ####[facility] [facility] [place] [address], USAPORTABLE CHEST 1 VIEWon 33-90-5773ABCGPVQZ CHEST 1 VIEWNormalThe [facility] SouthComment on above:Order Comment: Infiltrates APTTon 80-12-5265ePBK Coag (Bld) [Time]82.2 sCritically high25.0-35.0The [facility] SouthComment on above:Result Comment: CLINICAL SIGNIFICANCE OF THE PTT RESULT IS QUESTIONABLE IN THE PRESENCEOF HEPARIN.Result checked and called. Accurately read back by Samara Thakur RN, [id number] By: #### 66659, 64907 ####[facility] [facility] [place] [address], USAaPTT Coag (Bld) [Time]168.9 sCritically high25.0-35.0 The [facility] SouthComment on above:Order Comment: No: Do not add to previous drawResult Comment: RESULTS CHECKED AND CALLED. ACCURATELY READ BACK BY JOSE BARRON [id number] SIGNIFICANCE OF THE PTT RESULT IS QUESTIONABLE IN THE PRESENCEOF HEPARIN.Rivaroxaban and Apixaban will interfere with the anti Xa assay used tomonitor UFH and LMWH.Performed By: #### 99078, 81290 ####[facility] [place] [address], [facility] CENTERBASIC METABOLIC PANELon 89-36-9715Ijyqkdk [Mass/Vol]9.4 mg/dLNormal 8.6-10.3The [facility] SouthComment on above:Order Comment: No: Do not add to previous drawMissed twicePerformed By: #### 09531 ####[facility] [place] [address], [place] Chloride [Moles/Vol]99 mmol/WFajnri78-413Sau [facility] Comment on above:Order Comment: No: Do not add to previous drawMissed twice Performed By: #### 54437 ####[facility] [place] [address], USACO2 [Moles/Vol]23 mmol/TSawagy41-82Hbp [facility] SouthComment on above:Order Comment: No: Do not add to previous drawMissed twicePerformed By: #### 64855 ####[facility] [place] [address], [facility] CENTERCreatinine [Mass/Vol]1.23 mg/dL Normal0.70-1.30The [facility] SouthComment on above:Order Comment: No: Do not add to previous drawMissed twicePerformed By: #### 35897 ####[facility] [place] [address], [place] eGFR- non- Lgabmgka21 ml/min/1.73sq mAbnormal>60The [facility] SouthComment on above:Order Comment: No: Do not add to previous drawMissed twicePerformed By: #### 27266 ####[facility] [place] [address], USAGFR/1.73 sq M.predicted among blacks MDRD (S/P/Bld) [Vol rate/Area]mL/min/{1.73_m2}Normal>60The [facility] SouthComment on above:Order Comment: No: Do not add to previous drawMissed twicePerformed By: #### 01010 ####[facility] [place] [address], USAGlucose [Mass/Vol]137 mg/dLHigh 70-100The [facility] SouthComment on above:Order Comment: No: Do not add to previous drawMissed twicePerformed By: #### 10612 ####[facility] [place] [address], USAPotassium [Moles/Vol]5.6 mmol/LHigh3.5-5.1The [facility] SouthComment on above:Order Comment: No: Do not add to previous drawMissed twicePerformed By: #### [id number] ####[facility] [place] [address], USASodium [Moles/Vol]132 mmol/ZZgd891-881Kbo [facility] SouthComment on above:Order Comment: No: Do not add to previous drawMissed twicePerformed By: #### 72481 ####[facility] [place] [address], USAUrea nitrogen [Mass/Vol]57 mg/dL High7-25The [facility] SouthComment on above:Order Comment: No: Do not add to previous drawMissed twicePerformed By: #### 77349 ####[facility] [place] [address], [place] POC GLUCOSE LABon 54-37-2847Tbbbvqm [Mass/Vol]278 mg/lLFjun43-363Rmx [facility] SouthComment on above:Performed By: #### 95371 ####[facility] [place] [address], USAGlucose [Mass/Vol]165 mg/eCJfca37-717Yna [facility] SouthComment on above:Performed By: #### 73554 ####[facility] [place] [address], USAGlucose [Mass/Vol]157 mg/gVQlbf02-910Vhu [facility] SouthComment on above:Performed By: #### 89672 ####[facility] [place] [place] [address], [place] Glucose [Mass/Vol]134 mg/sLBzhv08-331Liy [facility] Comment on above:Performed By: #### 42525 ####[facility] [facility] [place] [address], [facility] CENTERUFH HEPARIN ASSAYon 08-27-2021 UNFRACTIONATED HEPARIN0.62 IU/mLNormal0.30-0.70The [facility] SouthComment on above:Order Comment: Missed twiceMissedMike Costa. Notified Result Comment: Rivaroxaban and Apixaban will interfere with the anti Xa assay used tomonitor UFH and LMWH.Performed By: #### 74655, 31233 ####[facility] [facility] [place] [address], [facility] CENTERUNFRACTIONATED HEPARIN0.76 IU/mLHigh0.30-0.70The [facility] SouthComment on above:Result Comment: Rivaroxaban and Apixaban will interfere with the anti Xa assay used tomonitor UFH and LMWH.RESULTS CHECKED AND CALLED. ACCURATELY READ BACK BY JOSE BARRON at 2350Performed By: #### 02418, 94747 ####[facility] [facility] [place] [address], [place] BASIC METABOLIC PANELon 07-48-9464Jscrvsd [Mass/Vol]9.6 mg/dLNormal8.6-10.3The [facility] SouthComment on above:Performed By: #### 43228, 68152 ####[facility] [place] [address], USAChloride [Moles/Vol]93 mmol/EEqz27-199Dzb [facility] SouthComment on above:Performed By: #### 48897, 11659 ####[facility] [place] [address], USACO2 [Moles/Vol]26 mmol/L Jzabof30-42Rkx [facility] SouthComment on above:Performed By: #### 32563, 08399 ####[address] [place] [address], USACreatinine [Mass/Vol]1.45 mg/dLHigh0.70-1.30The [facility] SouthComment on above:Performed By: #### 39964, 13076 ####[place] [address] [place] [address], USAeGFR- Zsrustxx19 ml/min/1.73sq mAbnormal>60The [facility] SouthComment on above:Performed By: #### 08135, 37911 ####[address] [place] [address], [place] eGFR- non- Vzrjhpnc87 ml/min/1.73sq mAbnormal>60The [facility] SouthComment on above:Performed By: #### 40639, 83471 ####[address] [place] [address], USAGlucose [Mass/Vol] 214 mg/sDJprn35-662Ede [facility] SouthComment on above: Performed By: #### 27896, 31197 ####[facility] [place] [address], USAPotassium [Moles/Vol]4.8 mmol/LNormal3.5-5.1 The [facility] SouthComment on above:Performed By: #### 50846, 02621 ####[facility] [place] [address], USASodium [Moles/Vol]133 mmol/YXzt794-338Lyr [facility] SouthComment on above:Performed By: #### 09454, 33766 ####[facility] [place] [address], USAUrea nitrogen [Mass/Vol]57 mg/dLHigh7-25The [facility] SouthComment on above:Performed By: #### 43630, 94814 ####[place] [address] [place] [address], USAHEMATOCRITon 57-20-9413Lguwzaerkv (Bld) [Volume fraction]34.0 %Low39.0-50.0The [facility] Comment on above:Order Comment: No: Do not add to previous drawPerformed By: #### 10398, 37713 ####[place] [address] [place] [address], [facility]ICAL CENTERHEMOGLOBINon 73-80-8965Aiuegeevfo (Bld) [Mass/Vol]11.4 g/dLLow13.0-17.0The [facility] SouthComment on above:Order Comment: No: Do not add to previous drawPerformed By: #### 50736, 77914 ####[place] [address] [place] [address], [place] POC GLUCOSE LABon 13-68-4137Ddgkzeu [Mass/Vol]146 mg/fAYpzh34-471Eos [facility] SouthComment on above:Performed By: #### 77457 ####[facility] [place] [address], USAGlucose [Mass/Vol]196 mg/eUTcmv20-145Reo [facility] SouthComment on above:Performed By: #### 03077 ####[facility] [facility] [place] [address], [facility]ICAL CENTERGlucose [Mass/Vol]183 mg/iVLbxl54-689Rfv [facility] SouthComment on above:Performed By: #### 61124 ####[facility] [facility] [place] [address], [facility] Glucose [Mass/Vol]308 mg/eMIcsq71-984Ytq [facility] Comment on above:Performed By: #### 97636 ####[facility] [facility] [place] [address], [facility]ICAL CENTERTROPONIN-Ion 40-72-0615Rbybgcuv I.cardiac [Mass/Vol]0.03 ng/mLNormal0.00-0.04The [facility] SouthComment on above:Order Comment: No: Do not add to previous drawResult Comment: REFERENCE RANGES: 0.00 - 0.04 ng/ml NORMAL 0.05 - 0.50 ng/ml INDETERMINATE > 0.50 ng/ml CONSISTENT WITH AN M.I.Performed By: #### 42643, 25462 ####[facility] [facility] [place] [address], [facility] CENTERUFH HEPARIN ASSAYon 59-61-0632YJERZIGXKXBTBE HEPARIN0.61 IU/mLNormal 0.30-0.70The [facility] SouthComment on above:Order Comment: This order is a replacement of the rejected order with accession [id number].Result Comment: Rivaroxaban and Apixaban will interfere with the anti Xa assay used tomonitor UFH and LMWH.Performed By: #### 55279 ####[facility] [facility] [place] [address], [facility] US ABDOMEN LIMITED FOR ASCITESon 88-73-7929PL ABDOMEN LIMITED FOR ASCITESNormal The [facility] SouthComment on above:Order Comment: US Guidance Documentation OnlyAPTTon 95-12-2744sBOX Coag (Bld) [Time]94.6 s Critically high25.0-35.0The [facility] SouthComment on above: Order Comment: No: Do not add to previous drawResult Comment: CLINICAL SIGNIFICANCE OF THE PTT RESULT IS QUESTIONABLE IN THE PRESENCEOF HEPARIN.Result checked and called. Accurately read back by Jo Figueroa RNat 0744Performed By: #### 00176, 96356 ####[facility] [place] [address], USABASIC METABOLIC PANELon 21-79-9956Savhwtd [Mass/Vol]9.4 mg/dLNormal8.6-10.3The [facility] SouthComment on above: Order Comment: No: Do not add to previous drawPerformed By: #### 27676 ####[facility] [place] [address], [place] Chloride [Moles/Vol]91 mmol/OUec36-197Xmo [facility] Comment on above:Order Comment: No: Do not add to previous drawPerformed By: #### 84965 ####[facility] [place] [address], USACO2 [Moles/Vol]30 mmol/CRyapah02-15Hec [facility] SouthComment on above:Order Comment: No: Do not add to previous drawPerformed By: #### 32163 ####[facility] [place] [address], USACreatinine [Mass/Vol]1.06 mg/dLNormal0.70-1.30The [facility] SouthComment on above:Order Comment: No: Do not add to previous drawPerformed By: #### 65864 ####[facility] [place] [address], USAGFR/1.73 sq M.predicted among blacks MDRD (S/P/Bld) [Vol rate/Area]mL/min/{1.73_m2}Normal>60The [facility] Medical CenterComment on above:Order Comment: No: Do not add to previous draw Performed By: #### 93074 ####[facility] [place] [address], USAGFR/1.73 sq M.predicted among non-blacks MDRD (S/P/Bld) [Vol rate/Area]mL/min/{1.73_m2}Normal>60The [facility] Comment on above:Order Comment: No: Do not add to previous drawPerformed By: #### 96948 ####[facility] [place] [address], USAGlucose [Mass/Vol]256 mg/uSOtfd71-342Vfo [facility] SouthComment on above:Order Comment: No: Do not add to previous drawPerformed By: #### 31034 ####[facility] [place] [address], USAPotassium [Moles/Vol]4.2 mmol/LNormal3.5-5.1The [facility] SouthComment on above:Order Comment: No: Do not add to previous drawPerformed By: #### 09517 ####[facility] [place] [place] [address], USASodium [Moles/Vol]131 mmol/FJkk869-316Pqd [facility] SouthComment on above:Order Comment: No: Do not add to previous drawPerformed By: #### 70826 ####[facility] [place] [address], USAUrea nitrogen [Mass/Vol]57 mg/dL High7-25The [facility] SouthComment on above:Order Comment: No: Do not add to previous drawPerformed By: #### 07695 ####[facility] [place] [address], USAPOC GLUCOSE LABon 02-49-6023Bbzbhvu [Mass/Vol]199 mg/tQQqbw90-970Kwa [facility] SouthComment on above:Performed By: #### 33316 ####[facility] [place] [address], USAGlucose [Mass/Vol]183 mg/dLHigh 70-100The [facility] SouthComment on above:Performed By: #### 92131 ####[facility] [place] [address], USAGlucose [Mass/Vol]185 mg/aKTvrm02-339Iwp [facility] SouthComment on above:Performed By: #### 35501 ####[facility] [place] [address], USAGlucose [Mass/Vol]273 mg/dLHigh 70-100The [facility] SouthComment on above:Performed By: #### 26882 ####[facility] [place] [address], USAUFH HEPARIN ASSAYon 65-70-7239GECJCDPHVXQPOA HEPARIN0.83 IU/mLHigh 0.30-0.70The [facility] SouthComment on above:Result Comment: Rivaroxaban and Apixaban will interfere with the anti Xa assay used tomonitor UFH and LMWH.Performed By: #### 13333 ####[facility] [place] [address], USAUNFRACTIONATED HEPARIN0.80 IU/mL High0.30-0.70The [facility] SouthComment on above:Result Comment: Rivaroxaban and Apixaban will interfere with the anti Xa assay used tomonitor UFH and LMWH.Performed By: #### 22780, 43701 ####[facility] [address], USAAPTTon 39-60-9100fXMS Coag (Bld) [Time]154.0 sCritically high25.0-35.0The [facility] SouthComment on above:Order Comment: No: Do not add to previous drawResult Comment: CLINICAL SIGNIFICANCE OF THE PTT RESULT IS QUESTIONABLE IN THE PRESENCEOF HEPARIN.Results called. Accurately read back by Jose Doyle,,RN, CVU 3CD pt's nurse, at 2254, .Performed By: #### 68518, 46852 ####[facility] [facility] [place] [address], [facility] CENTERaPTT Coag (Bld) [Time]150.2 sCritically high25.0-35.0The [facility] SouthComment on above:Order Comment: No: Do not add to previous drawResult Comment: CLINICAL SIGNIFICANCE OF THE PTT RESULT IS QUESTIONABLE IN THE PRESENCEOF HEPARIN.RESULTS CHECKED AND CALLED. ACCURATELY READ BACK BY YLUIA HERBERT AT 1523Performed By: #### 26131, 54468 ####[facility] [facility] [place] [address], [place] aPTT Coag (Bld) [Time]163.5 sCritically high25.0-35.0The [facility] SouthComment on above:Order Comment: No: Do not add to previous draw Result Comment: CLINICAL SIGNIFICANCE OF THE PTT RESULT IS QUESTIONABLE IN THE PRESENCEOF HEPARIN.Result checked and called. Accurately read back by Pamela Shrestha at 0735Performed By: #### 13355, 82162 ####[facility] [facility] [place] [address], USABASIC METABOLIC PANELon 21-77-8526Ohuwwcd [Mass/Vol]9.4 mg/dLNormal8.6-10.3The [facility] SouthComment on above:Order Comment: No: Do not add to previous draw Performed By: #### 59717 ####[facility] [place] [address], USAChloride [Moles/Vol]84 mmol/UMoc18-657Jrx [facility] SouthComment on above:Order Comment: No: Do not add to previous drawPerformed By: #### 93203 ####[facility] [place] [address], USACO2 [Moles/Vol]31 mmol/QTrpnqv03-39Ssp [facility] SouthComment on above:Order Comment: No: Do not add to previous drawPerformed By: #### 37307 ####[facility] [place] [address], USACreatinine [Mass/Vol]1.87 mg/dL High0.70-1.30The [facility] SouthComment on above:Order Comment: No: Do not add to previous drawPerformed By: #### 17545 ####[facility] [place] [address], USAeGFR- Rzoofrpn07 ml/min/1.73sq mAbnormal>60The [facility] Comment on above:Order Comment: No: Do not add to previous drawPerformed By: #### 52308 ####[facility] [place] [address], USAeGFR- non- Gsfwsdbj38 ml/min/1.73sq mAbnormal>60The [facility] SouthComment on above:Order Comment: No: Do not add to previous drawPerformed By: #### 03193 ####[facility] [place] [address], USAGlucose [Mass/Vol]181 mg/dLHigh 70-100The [facility] SouthComment on above:Order Comment: No: Do not add to previous drawPerformed By: #### 01429 ####[facility] [place] [address], USAPotassium [Moles/Vol]4.1 mmol/LNormal3.5-5.1The [facility] SouthComment on above:Order Comment: No: Do not add to previous drawPerformed By: #### 25352 ####[facility] [place] [address], USASodium [Moles/Vol]131 mmol/PMvw674-589Kin [facility] SouthComment on above:Order Comment: No: Do not add to previous drawPerformed By: #### 59305 ####[facility] [place] [address], [place] Urea nitrogen [Mass/Vol]77 mg/dLHigh7-25The [facility] Comment on above:Order Comment: No: Do not add to previous drawPerformed By: #### 63699 ####[facility] [place] [address], USACHEST AND LATERALon 84-79-1834SRGMF AND [facility] HospitalComment on above:Order Comment: evaluate AtelectasisPOC GLUCOSE LABon 07-72-0040Bvgbipa [Mass/Vol]170 mg/qTIgmq64-894Tcg [facility] SouthComment on above:Performed By: #### 32727 ####[facility] [place] [address], USAGlucose [Mass/Vol] 215 mg/dOUamh79-451Rew [facility] SouthComment on above: Performed By: #### 40296 ####[facility] [place] [address], USAGlucose [Mass/Vol]219 mg/nJOrri87-883Sjn [facility] SouthComment on above:Performed By: #### 36404 ####[facility] [place] [address], USAGlucose [Mass/Vol] 194 mg/nTIpos22-457Joz [facility] SouthComment on above: Performed By: #### 71726 ####[facility] [place] [address], USAUFH HEPARIN ASSAYon 09-49-9896IDWSBTHTKOZQPZ HEPARIN 0.99 IU/mLCritically high0.30-0.70The [facility] SouthComment on above:Order Comment: UFH added per protocol.Result Comment: Rivaroxaban and Apixaban will interfere with the anti Xa assay used tomonitor UFH and LMWH.Results called. Accurately read back by Jose Doyle,,RN, CVU 3CD pt's nurse, at 2254, .Performed By: #### 10909, 02080 ####[facility] [place] [address], [facility] UNFRACTIONATED HEPARIN>1.00Critically high0.30-0.70The [facility] SouthComment on above:Order Comment: ADDED ON PER PROTOCOLResult Comment: Rivaroxaban and Apixaban will interfere with the anti Xa assay used tomonitor UFH and LMWH.Rivaroxaban and Apixaban will interfere with the anti Xa assay used tomonitor UFH and LMWH.Performed By: #### 67234, 66448 ####[facility] [place] [address], [facility] CENTERUNFRACTIONATED HEPARIN1.00 IU/mLCritically high0.30-0.70The [facility] Comment on above:Result Comment: Result checked and called. Accurately read back by Pamela Shrestha at 0735Rivaroxaban and Apixaban will interfere with the anti Xa assay used tomonitor UFH and LMWH.Performed By: #### 46824, 36420 ####[facility] [place] [address], [place] APTTon 06-34-9826fMWZ Coag (Bld) [Time]55.1 sHigh25.0-35.0The [facility] SouthComment on above:Order Comment: No: Do not add to previous drawResult Comment: Clinical significance of the PTT result is questionable in the presenceof Heparin.ALL RESULTS MUST BE INTERPRETED WITH RESPECT TO BLOOD DRAWING ARTIFACTOR DILUTION ERROR OF ANTICOAGULANT AT THE TIME OF SAMPLING.THE APTT SHOULD NOT BE USED TO MONITOR UNFRACTIONATED HEPARIN THERAPY,[facility] NO LONGER HAS AN ESTABLISHED THERAPEUTIC RANGE BASEDON THE APTT. IT IS RECOMMENDED THAT THE UFH - HEPARIN ASSAY (ANTI-XAACTIVITY) BE USED FOR THIS PURPOSE.Performed By: #### 49837, 81383 ####[facility] [place] [address], USAaPTT Coag (Bld) [Time]115.6 s Critically high25.0-35.0The [facility] SouthComment on above: Order Comment: No: Do not add to previous drawResult Comment: CLINICAL SIGNIFICANCE OF THE PTT RESULT IS QUESTIONABLE IN THE PRESENCEOF HEPARIN.Result checked and called. Accurately read back by Minerva Quintero RN [id number] By: #### 14046, 52183 ####[facility] [address], USAaPTT Coag (Bld) [Time]54.1 sHigh25.0-35.0The [facility] SouthComment on above:Order Comment: No: Do not add to previous drawResult Comment: ALL RESULTS MUST BE INTERPRETED WITH RESPECT TO BLOOD DRAWING ARTIFACTOR DILUTION ERROR OF ANTICOAGULANT AT THE TIME OF SAMPLING.THE APTT SHOULD NOT BE USED TO MONITOR UNFRACTIONATED HEPARIN THERAPY, THIS LABORATORY NO LONGER HAS AN ESTABLISHED THERAPEUTIC RANGE BASEDON THE APTT. IT IS RECOMMENDED THAT THE UFH - HEPARIN ASSAY (ANTI- XAACTIVITY) BE USED FOR THIS PURPOSE.RESULTS CHECKED AND CALLED. ACCURATELY READ BACK BY JEYSON PEREA [id number] By: #### 51334 ####[facility] [place] [address], USABASIC METABOLIC PANELon 54-28-7544Figucdo [Mass/Vol]9.1 mg/dLNormal8.6-10.3The [facility] SouthComment on above:Order Comment: No: Do not add to previous draw Performed By: #### 49972, 65459 ####[facility] [place] [address], USAChloride [Moles/Vol]90 mmol/VSju91-871Sjm [facility] SouthComment on above:Order Comment: No: Do not add to previous drawPerformed By: #### 46906, 79589 ####[facility] [place] [address], USACO2 [Moles/Vol]31 mmol/L Atcobp54-89Wiz [facility] SouthComment on above:Order Comment: No: Do not add to previous drawPerformed By: #### 44646, 00149 ####[facility] [place] [address], [place] Creatinine [Mass/Vol]1.58 mg/dLHigh0.70-1.30The [facility] SouthComment on above:Order Comment: No: Do not add to previous drawPerformed By: #### 29529, 85428 ####[facility] [place] [address], USAeGFR- Ayibmqxm32 ml/min/1.73sq mAbnormal>60The [facility] SouthComment on above:Order Comment: No: Do not add to previous drawPerformed By: #### 38918, 40010 ####[facility] [place] [address], USAeGFR- non- 45 ml/min/1.73sq mAbnormal>60The [facility] SouthComment on above:Order Comment: No: Do not add to previous drawPerformed By: #### 37552, 72807 ####[facility] [place] [address], USAGlucose [Mass/Vol]180 mg/bEBhmh19-418Lwj [facility] SouthComment on above:Order Comment: No: Do not add to previous drawPerformed By: #### 21826, 86794 ####[facility] [place] [address], USAPotassium [Moles/Vol]3.3 mmol/LLow3.5-5.1The [facility] SouthComment on above:Order Comment: No: Do not add to previous drawPerformed By: #### 13779, 14666 ####[facility] [place] [address], USASodium [Moles/Vol]135 mmol/LLow 136-145The [facility] SouthComment on above:Order Comment: No: Do not add to previous drawPerformed By: #### 84534, 01254 ####[facility] [place] [address], USAUrea nitrogen [Mass/Vol]55 mg/dLHigh7-25The [facility] SouthComment on above:Order Comment: No: Do not add to previous drawPerformed By: #### 35469, 20572 ####[facility] [place] [address], USAMAGNESIUM BLOODon 04-30-7089Vkliakmaz [Mass/Vol]2.2 mg/dLNormal1.9-2.7 The [facility] SouthComment on above:Order Comment: No: Do not add to previous drawPerformed By: #### 97343, 64956 ####[facility] [place] [address], USAPOC GLUCOSE LABon 15-67-1976Cdqlfct [Mass/Vol]214 mg/hLCfwl83-841Peh [facility] SouthComment on above:Performed By: #### 51377 ####[facility] [place] [address], USAGlucose [Mass/Vol]325 mg/dLHigh 70-100The [facility] SouthComment on above:Performed By: #### 22378 ####[facility] [place] [address], USAGlucose [Mass/Vol]312 mg/hEQaur53-628Sqq [facility] SouthComment on above:Performed By: #### 74522 ####[facility] [facility] [place] [address], [facility] CENTERGlucose [Mass/Vol]179 mg/dLHigh 70-100The [facility] SouthComment on above:Performed By: #### 39896 ####[place] [address] [facility] [place] [address], [facility] CENTERPO SARS COV2 ANTIGEN NEGATIVEon 74-80-7761JLB SARS COV2 ANTIGEN NEG NegativeNormalNEGATIVEThe [facility] SouthComment on above: Result Comment: Negative results should be treated as presumptive and [...] protein antigen from SARS-CoV-2 in directnasopharyngeal swab (DYE BLENDER) specimens from individuals who are suspected ofCOVID-19 [...] of Waiver, Certificate of Compliance, or Certificate ofAccreditation.Performed By: #### [id number] ####[facility] [place] [address], [facility] UFH HEPARIN ASSAYon [id number] HEPARIN0.37 IU/mLNormal0.30-0.70The [facility] SouthComment on above:Order Comment: Added per protocolResult Comment: Rivaroxaban and Apixaban will interfere with the anti Xa assay used tomonitor UFH and LMWH.Performed By: #### 75835, 11505 ####[facility] UNFRACTIONATED HEPARIN0.87 IU/mLHigh0.30-0.70The [facility] SouthComcorewell [facility] on above:Result Comment: Rivaroxaban and Apixaban will interfere with the anti Xa assay used tomonitor UFH and LMWH.Performed By: #### 10966, 70010 ####[address] [place] [address], [facility] CENTERAPTBanner Heart Hospital [id number] Coag (Bld) [Time]31.9 dNdmyfl88.0-35.0The [facility] SouthComcorewell [facility] on above:Order Comment: No: Do not add to previous drawResult Comment: ALL RESULTS MUST BE INTERPRETED WITH RESPECT TO BLOOD DRAWING ARTIFACTOR DILUTION ERROR OF ANTICOAGULANT AT THE TIME OF SAMPLING.THE APTT SHOULD NOT BE USED TO MONITOR UNFRACTIONATED HEPARIN THERAPY, THIS LABORATORY NO LONGER HAS AN ESTABLISHED THERAPEUTIC RANGE BASEDON THE APTT. IT IS RECOMMENDED THAT THE UFH - HEPARIN ASSAY (ANTI- XAACTIVITY) BE USED FOR THIS PURPOSE.Performed By: #### [id number] ####[place] [address] [facility] [place] [address], [facility] CENTERaPTT Coag (Bld) [Time]30.0 yNkoudq95.0-35.0The [facility] SouthComcorewell [facility] on above:Order Comment: No: Do not add to previous drawResult Comment: ALL RESULTS MUST BE INTERPRETED WITH RESPECT TO BLOOD DRAWING ARTIFACTOR DILUTION ERROR OF ANTICOAGULANT AT THE TIME OF SAMPLING.THE APTT SHOULD NOT BE USED TO MONITOR UNFRACTIONATED HEPARIN THERAPY, THIS LABORATORY NO LONGER HAS AN ESTABLISHED THERAPEUTIC RANGE BASEDON THE APTT. IT IS RECOMMENDED THAT THE UFH - HEPARIN ASSAY (ANTI-XAACTIVITY) BE USED FOR THIS PURPOSE.Performed By: #### [id number] ####[address] [facility] [place] [address], [facility] BASIC METABOLIC PANELon [id number] [Mass/Vol]8.7 mg/dLNormal8.6-10.3The [facility] SouthComment on above:Order Comment: No: Do not add to previous drawPerformed By: #### 50925, 09602 ####[facility] [place] [address], USAChloride [Moles/Vol]94 mmol/SKtv36-139Fxf [facility] SouthComment on above:Order Comment: No: Do not add to previous drawPerformed By: #### 96012, 99470 ####[facility] [facility] [place] [address], [place] CO2 [Moles/Vol]28 mmol/OEtiuab77-84Azi [facility] Comment on above:Order Comment: No: Do not add to previous drawPerformed By: #### 00466, 39164 ####[facility] [facility] [place] [address], USACreatinine [Mass/Vol]1.28 mg/dLNormal0.70-1.30The [facility] SouthComment on above:Order Comment: No: Do not add to previous drawPerformed By: #### 60290, 73991 ####[place] [address] [facility] [place] [address], USAeGFR- non- 57 ml/min/1.73sq mAbnormal>60The [facility] SouthComment on above:Order Comment: No: Do not add to previous drawPerformed By: #### 22215, 56199 ####[facility] [facility] [place] [address], USAGFR/1.73 sq M.predicted among blacks MDRD (S/P/Bld) [Vol rate/Area] mL/min/{1.73_m2}Normal>60The [facility] SouthComment on above:Order Comment: No: Do not add to previous drawPerformed By: #### 93410, 67376 ####[facility] [place] [address], USAGlucose [Mass/Vol]146 mg/kMFoyc02-201Ass [facility] SouthComment on above:Order Comment: No: Do not add to previous drawPerformed By: #### 31432, 09045 ####[facility] [place] [address], USAPotassium [Moles/Vol]3.6 mmol/LNormal3.5-5.1The [facility] SouthComment on above:Order Comment: No: Do not add to previous drawPerformed By: #### 35290, 06127 ####[facility] [place] [address], USASodium [Moles/Vol]134 mmol/TTva565-246Rku [facility] SouthComment on above:Order Comment: No: Do not add to previous drawPerformed By: #### 47409, 72053 ####[facility] [place] [address], [place] Urea nitrogen [Mass/Vol]36 mg/dLHigh7-25The [facility] Comment on above:Order Comment: No: Do not add to previous drawPerformed By: #### 59293, 02246 ####[facility] [place] [address], USAMAGNESIUM BLOODon 49-29-9653Ssawdclvq [Mass/Vol]1.6 mg/dLLow1.9-2.7The [facility] SouthComment on above:Order Comment: No: Do not add to previous drawPerformed By: #### 03415, 42576 ####[facility] [place] [address], [place] POC GLUCOSE LABon 97-25-6450Kezyuiz [Mass/Vol]165 mg/zCVouv14-593Pwt [facility] SouthComment on above:Performed By: #### 21225 ####[facility] [facility] [place] [address], [facility] CENTERGlucose [Mass/Vol]154 mg/iEPyzb52-833Bws [facility] SouthComment on above:Performed By: #### 51521 ####[address] [place] [address], [facility] CENTERGlucose [Mass/Vol]254 mg/qPMjhs05-144Vwk [facility] SouthComment on above:Performed By: #### 84376 ####[address] [place] [address], [facility] Glucose [Mass/Vol]208 mg/mEAdzf22-730Xqd [facility] Comment on above:Performed By: #### 25221 ####[address] [place] [address], [facility] CENTERAPTBanner Heart Hospital 51-61-9995sGQC Coag (Bld) [Time]27.2 wYftqhl23.0-35.0The [facility] SouthComment on above:Order Comment: No: Do not add to previous drawResult Comment: ALL RESULTS MUST BE INTERPRETED WITH RESPECT TO BLOOD DRAWING ARTIFACTOR DILUTION ERROR OF ANTICOAGULANT AT THE TIME OF SAMPLING.THE APTT SHOULD NOT BE USED TO MONITOR UNFRACTIONATED HEPARIN THERAPY, THIS LABORATORY NO LONGER HAS AN ESTABLISHED THERAPEUTIC RANGE BASEDON THE APTT. IT IS RECOMMENDED THAT THE UFH - HEPARIN ASSAY (ANTI-XAACTIVITY) BE USED FOR THIS PURPOSE.Performed By: #### 10906 ####[address] [place] [address], [facility] aPTT Coag (Bld) [Time]29.4 zLmecpl16.0-35.0The [facility] SouthComment on above:Order Comment: No: Do not add to previous drawResult Comment: ALL RESULTS MUST BE INTERPRETED WITH RESPECT TO BLOOD DRAWING ARTIFACTOR DILUTION ERROR OF ANTICOAGULANT AT THE TIME OF SAMPLING.THE APTT SHOULD NOT BE USED TO MONITOR UNFRACTIONATED HEPARIN THERAPY, THIS LABORATORY NO LONGER HAS AN ESTABLISHED THERAPEUTIC RANGE BASEDON THE APTT. IT IS RECOMMENDED THAT THE UFH - HEPARIN ASSAY (ANTI-XAACTIVITY) BE USED FOR THIS PURPOSE.Performed By: #### 16750 ####[facility] [facility] [place] [address], [facility] CENTERaPTT Coag (Bld) [Time]41.4 sHigh25.0-35.0The [facility] SouthComment on above:Order Comment: No: Do not add to previous drawResult Comment: ALL RESULTS MUST BE INTERPRETED WITH RESPECT TO BLOOD DRAWING ARTIFACTOR DILUTION ERROR OF ANTICOAGULANT AT THE TIME OF SAMPLING.THE APTT SHOULD NOT BE USED TO MONITOR UNFRACTIONATED HEPARIN THERAPY, THIS LABORATORY NO LONGER HAS AN ESTABLISHED THERAPEUTIC RANGE BASEDON THE APTT. IT IS RECOMMENDED THAT THE UFH - HEPARIN ASSAY (ANTI- XAACTIVITY) BE USED FOR THIS PURPOSE.Performed By: #### 11408 ####[facility] [facility] [place] [address], [facility] CENTERaPTT Coag (Bld) [Time]33.7 cLywytb85.0-35.0The [facility] SouthComment on above:Order Comment: No: Do not add to previous drawResult Comment: ALL RESULTS MUST BE INTERPRETED WITH RESPECT TO BLOOD DRAWING ARTIFACTOR DILUTION ERROR OF ANTICOAGULANT AT THE TIME OF SAMPLING.THE APTT SHOULD NOT BE USED TO MONITOR UNFRACTIONATED HEPARIN THERAPY, THIS LABORATORY NO LONGER HAS AN ESTABLISHED THERAPEUTIC RANGE BASEDON THE APTT. IT IS RECOMMENDED THAT THE UFH - HEPARIN ASSAY (ANTI-XAACTIVITY) BE USED FOR THIS PURPOSE.Performed By: #### 26523 ####[place] [address] [facility].[address] BASIC METABOLIC PANELon [id number] [Mass/Vol]8.7 mg/dLNormal8.6-10.3The [facility] SouthComment on above:Order Comment: No: Do not add to previous drawPerformed By: #### 36424, 03212 ####[address] [place] [address], USAChloride [Moles/Vol]101 mmol/RJrcqpb33-715Ymw [facility] SouthComment on above:Order Comment: No: Do not add to previous drawPerformed By: #### 47242, 72978 ####[facility] [place] [address], [place] CO2 [Moles/Vol]27 mmol/VBfjabw97-46Lmx [facility] Comment on above:Order Comment: No: Do not add to previous drawPerformed By: #### 79005, 88251 ####[facility] [place] [address], USACreatinine [Mass/Vol]0.86 mg/dLNormal0.70-1.30The [facility] SouthComment on above:Order Comment: No: Do not add to previous drawPerformed By: #### 81691, 83063 ####[facility] [place] [address], USAGFR/1.73 sq M.predicted among blacks MDRD (S/P/Bld) [Vol rate/Area]mL/min/{1.73_m2}Normal>60The [facility] SouthComment on above:Order Comment: No: Do not add to previous drawPerformed By: #### 41800, 38547 ####[facility] [place] [address], USAGFR/1.73 sq M.predicted among non-blacks MDRD (S/P/Bld) [Vol rate/Area]mL/min/{1.73_m2}Normal>60The [facility] SouthComment on above:Order Comment: No: Do not add to previous drawPerformed By: #### 11336, 46214 ####[facility] [place] [address], USAGlucose [Mass/Vol]155 mg/yISkvz08-809Qyy [facility] SouthComment on above:Order Comment: No: Do not add to previous drawPerformed By: #### 06736, 01496 ####[facility] [place] [address], [facility] Potassium [Moles/Vol]3.7 mmol/LNormal3.5-5.1The [facility] SouthComment on above:Order Comment: No: Do not add to previous drawPerformed By: #### 74469, 84602 ####[facility] [place] [address], [facility] CENTERSodium [Moles/Vol]137 mmol/TTvwkmi712-961Koq [facility] SouthComment on above:Order Comment: No: Do not add to previous drawPerformed By: #### 58589, 12555 ####[facility] [place] [address], [facility] CENTERUrea nitrogen [Mass/Vol]18 mg/dL Normal7-25The [facility] SouthComment on above:Order Comment: No: Do not add to previous drawPerformed By: #### 33645, 19477 ####[facility] [place] [address], [facility]ICAL CENTERCBC COMPLETE BLOOD COUNTon 78-37-9953Cdgeinaxtei distribution width (RBC) [Ratio]14.6 %Normal 11.5-15.0The [facility] SouthComment on above:Order Comment: No: Do not add to previous drawPerformed By: #### 97877 ####[facility] [place] [address], [facility]ICAL CENTERHematocrit (Bld) [Volume fraction]30.4 %Low39.0-50.0The [facility] SouthComment on above:Order Comment: No: Do not add to previous drawPerformed By: #### 76419 ####[facility] [place] [address], [facility] Hemoglobin (Bld) [Mass/Vol]9.7 g/dLLow13.0-17.0The [facility] SouthComment on above:Order Comment: No: Do not add to previous drawPerformed By: #### 30367 ####[facility] [place] [address], [facility] (RBC) [Entitic mass]27.9 czHxfvjb14.0-33.0The [facility] SouthComment on above:Order Comment: No: Do not add to previous drawPerformed By: #### 49355 ####[facility] [facility] [place] [address], [facility] [place] [facility]THC (RBC) [Mass/Vol]31.9 g/dLLow32.0-35.0The [facility] SouthComment on above:Order Comment: No: Do not add to previous drawPerformed By: #### 19736 ####[facility] [place] [address], [facility]ANTV (RBC) [Entitic vol]87.4 fL Grjiou17.0-98.0The [facility] SouthComment on above:Order Comment: No: Do not add to previous drawPerformed By: #### 41429 ####[facility] [place] [address], [facility]ICAL CENTERNucleated RBC/100 WBC (Bld) [Ratio]0 %Normal0-0The [facility] Comment on above:Order Comment: No: Do not add to previous drawPerformed By: #### 63939 ####[facility] [place] [address], USAPLAT FXD449 10*3/xBGdsmfe190-715Fia [facility] SouthComment on above:Order Comment: No: Do not add to previous drawPerformed By: #### 74153 ####[facility] [facility] [place] [address], [facility] CENTERRBC (Bld) [#/Vol]3.48 10*6/uLLow4.20-5.70The [facility] SouthComment on above:Order Comment: No: Do not add to previous draw Performed By: #### 23013 ####[facility] [place] [address], USAWBC (Bld) [#/Vol]4.81 10*3/uLNormal4.00-10.60The [facility] SouthComment on above:Order Comment: No: Do not add to previous drawPerformed By: #### 70848 ####[facility] [place] [address], USAMAGNESIUM BLOODon 08-21-2021 Magnesium [Mass/Vol]1.7 mg/dLLow1.9-2.7The [facility] Comment on above:Order Comment: No: Do not add to previous drawPerformed By: #### 16175, 18857 ####[facility] [place] [address], USAPOC GLUCOSE LABon 02-75-0616Yfqtnvg [Mass/Vol]178 mg/dL Eflq10-443Amv [facility] SouthComment on above:Performed By: #### 01148 ####[facility] [place] [address], USAGlucose [Mass/Vol]205 mg/pDSnqq37-172Lzk [facility] SouthComment on above:Performed By: #### 77403 ####[facility] [place] [address], USAGlucose [Mass/Vol]233 mg/dLHigh 70-100The [facility] SouthComment on above:Performed By: #### 17753 ####[facility] [place] [address], USAGlucose [Mass/Vol]174 mg/uETprc11-915Btm [facility] SouthComment on above:Performed By: #### 43469 ####[facility] [facility] [place] [address], USAAPTTon 82-26-4676fIFC Coag (Bld) [Time]36.0 sHigh25.0-35.0The [facility] SouthComment on above:Order Comment: No: Do not add to previous drawResult Comment: ALL RESULTS MUST BE INTERPRETED WITH RESPECT TO BLOOD DRAWING ARTIFACTOR DILUTION ERROR OF ANTICOAGULANT AT THE TIME OF SAMPLING.THE APTT SHOULD NOT BE USED TO MONITOR UNFRACTIONATED HEPARIN THERAPY, THIS LABORATORY NO LONGER HAS AN ESTABLISHED THERAPEUTIC RANGE BASEDON THE APTT. IT IS RECOMMENDED THAT THE UFH - HEPARIN ASSAY (ANTI-XAACTIVITY) BE USED FOR THIS PURPOSE.Performed By: #### 45112 ####[facility] [facility] [place] [address], [facility] aPTT Coag (Bld) [Time]27.0 eJatwqw89.0-35.0The [facility] SouthComment on above:Order Comment: No: Do not add to previous drawResult Comment: ALL RESULTS MUST BE INTERPRETED WITH RESPECT TO BLOOD DRAWING ARTIFACTOR DILUTION ERROR OF ANTICOAGULANT AT THE TIME OF SAMPLING.THE APTT SHOULD NOT BE USED TO MONITOR UNFRACTIONATED HEPARIN THERAPY, THIS LABORATORY NO LONGER HAS AN ESTABLISHED THERAPEUTIC RANGE BASEDON THE APTT. IT IS RECOMMENDED THAT THE UFH - HEPARIN ASSAY (ANTI-XAACTIVITY) BE USED FOR THIS PURPOSE.Performed By: #### 32263, 44908 ####[place] [address] [facility] [place] [address], USABASIC METABOLIC PANELon 08-20-2021 Calcium [Mass/Vol]8.6 mg/dLNormal8.6-10.3The [facility] Comment on above:Order Comment: No: Do not add to previous drawPerformed By: #### 77161, 55875, 34731 ####[facility] [facility] [place] [address], USAChloride [Moles/Vol]107 mmol/IWadsyh17-829Bxt [facility] SouthComment on above:Order Comment: No: Do not add to previous drawPerformed By: #### 62579, 60995, 79581 ####[facility] [place] [address], USACO2 [Moles/Vol]28 mmol/SIedhzv92-36Wvu [facility] SouthComment on above:Order Comment: No: Do not add to previous drawPerformed By: #### 57853, 67933, 65806 ####[facility] [place] [address], [place] Creatinine [Mass/Vol]0.83 mg/dLNormal0.70-1.30The [facility] SouthComment on above:Order Comment: No: Do not add to previous drawPerformed By: #### 05613, 78025, 45520 ####[facility] [place] [address], USAGFR/1.73 sq M.predicted among blacks MDRD (S/P/Bld) [Vol rate/Area]mL/min/{1.73_m2}Normal>60The [facility] SouthComment on above:Order Comment: No: Do not add to previous draw Performed By: #### 59632, 45149, 43523 ####[facility] [place] [address], USAGFR/1.73 sq M.predicted among non- blacks MDRD (S/P/Bld) [Vol rate/Area]mL/min/{1.73_m2}Normal>60The [facility] SouthComment on above:Order Comment: No: Do not add to previous drawPerformed By: #### 72035, 84120, 41002 ####[facility] [place] [address], USAGlucose [Mass/Vol]125 mg/dLHigh 70-100The [facility] SouthComment on above:Order Comment: No: Do not add to previous drawPerformed By: #### 67589, 71746, 21876 ####[facility] [facility] [place] [address], [facility] Potassium [Moles/Vol]4.0 mmol/LNormal3.5-5.1The [facility] SouthComment on above:Order Comment: No: Do not add to previous drawPerformed By: #### 81982, 76115, 95279 ####[facility] [facility] [place] [place] [address], [facility] CENTERSodium [Moles/Vol]138 mmol/XSwuurk345-822Oxt [facility] SouthComment on above:Order Comment: No: Do not add to previous drawPerformed By: #### 78536, 31644, 69142 ####[facility] [facility] [place] [address], [facility] CENTERUrea nitrogen [Mass/Vol]15 mg/dLNormal7-25The [facility] SouthComment on above:Order Comment: No: Do not add to previous drawPerformed By: #### 57456, 84853, 96231 ####[address] [place] [address], [facility] CENTERCBC W/DIFFon 56-03-9694AEB IMM GRANS0.0 10*3/uLNormal0.0-0.2The [facility] SouthComment on above:Performed By: #### 50565 ####[facility] [place] [address].[place] [address], [facility] ABS NEUTROPHILS3.2 10*3/uLNormal1.6-7.6The [facility] Comment on above:Performed By: #### 43820 ####[address] [place] [address], [facility] CENTERBasophils (Bld) [#/Vol]0.0 10*3/uL Normal0.0-0.2The [facility] SouthComment on above:Performed By: #### 85591 ####[facility] [facility] [place] [address], USABasophils/100 WBC (Bld)0.8 %Normal0.0-1.0The [facility] SouthComment on above:Performed By: #### 26926 ####[facility] [facility] [place] [address], [facility] CENTEREosinophils (Bld) [#/Vol] 0.1 10*3/uLNormal0.0-0.5The [facility] SouthComment on above: Performed By: #### 52434 ####[facility] [facility] [place] [address], USAEosinophils/100 WBC (Bld)1.4 %Normal0.0-6.0The [facility] SouthComment on above:Performed By: #### 54802 ####[facility] [facility] [place] [address], [place] Erythrocyte distribution width (RBC) [Ratio]14.6 %Azgglb93.5-15.0The [facility] SouthComment on above:Performed By: #### 73756 ####[facility] [facility] [place] [address], USAHematocrit (Bld) [Volume fraction]28.6 %Low39.0-50.0The [facility] Comment on above:Performed By: #### 29686 ####[facility] [facility] [place] [address], USAHemoglobin (Bld) [Mass/Vol]9.0 g/dLLow13.0-17.0The [facility] SouthComment on above: Performed By: #### 11084 ####[facility] [place] [address].[place] [address], [facility] CENTERIMMATURE GRANS0.2 %Normal0.0-1.0The [facility] SouthComment on above:Performed By: #### 01752 ####[facility] [facility] [place] [address], [facility]ICAL CENTERLymphocytes (Bld) [#/Vol]1.2 10*3/uLNormal1.2-4.0The [facility] SouthComment on above:Performed By: #### 34606 ####[facility] [place] [address], [facility] CENTERLymphocytes/100 WBC (Bld)24.0 %Normal 20.0-45.0The [facility] SouthComment on above:Performed By: #### 74021 ####[address] [place] [address], [facility]ICAL CENTERMCH (RBC) [Entitic mass]28.0 whBvnpxn75.0-33.0The [facility] SouthComment on above:Performed By: #### 37536 ####[facility] [place] [address].[place] [address], [facility] CENTERMCHC (RBC) [Mass/Vol]31.5 g/dLLow32.0-35.0The [facility] SouthComment on above: Performed By: #### 95569 ####[address] [place] [address], [facility] CENTERMCV (RBC) [Entitic vol]89.1 wSPxqgmj57.0-98.0The [facility] SouthComment on above:Performed By: #### 97017 ####[facility] [place] [address].[place] [address], [facility] Monocytes (Bld) [#/Vol]0.6 10*3/uLNormal0.1-1.0The [facility] [place] SouthComment on above:Performed By: #### [id number] ####[address] [place] [address], IKGTZRWO61.1 %Normal5.0-12.0The [facility] SouthComment on above:Performed By: #### 53368 ####[facility] [facility] [place] [address], [facility] Neutrophils/100 WBC (Bld)62.5 %Nxmcpt36.0-72.0The [facility] SouthComment on above:Performed By: #### 90531 ####[address] [place] [address], [facility] MEDICAL CENTERNucleated RBC/100 WBC (Bld) [Ratio]0 %Normal0-0The [facility] [place] SouthComment on above: Performed By: #### 71989 ####[address] [place] [address], [facility] MEDICAL CENTERPLAT TZN779 10*3/kLJkgfqi594-133Qtg [facility] SouthComment on above:Performed By: #### 05512 ####[address] [place] [address], [facility] MEDICAL CENTERRBC (Bld) [#/Vol] 3.21 10*6/uLLow4.20-5.70The [facility] SouthComment on above: Performed By: #### 14055 ####[address] [place] [address], [facility] MEDICAL CENTERWBC (Bld) [#/Vol]5.04 10*3/uLNormal4.00-10.60The [facility] SouthComment on above:Performed By: #### 88852 ####[address] [place] [address], [facility] MAGNESIUM BLOODon 01-18-9620Euvmjfbhf [Mass/Vol]1.8 mg/dLLow1.9-2.7The [facility] SouthComment on above:Order Comment: No: Do not add to previous drawPerformed By: #### 47186, 13596, 20038 ####[address] [place] [address], [place]OC GLUCOSE LABon 81-21-6596Hzeatdl [Mass/Vol]134 mg/wQJccp38-808Gfg [facility] SouthComment on above:Performed By: #### 84266 ####[facility] [facility] [place] [address], USAPORTABLE CHEST 1 VIEWon 20-45-5472KQLJRZSI CHEST 1 VIEWNormalThe [facility] [place] [facility] Comment on above:Order Comment: InfiltratesTROPONIN-Ion 86-49-9222Xmcpzira I.cardiac [Mass/Vol]0.01 ng/mLNormal0.00-0.04The [facility] [place] SouthComment on above:Order Comment: No: Do not add to previous drawResult Comment: REFERENCE RANGES: 0.00 - 0.04 ng/ml NORMAL 0.05 - 0.50 ng/ml INDETERMINATE > 0.50 ng/ml CONSISTENT WITH AN M.I.Performed By: #### 83046, 95053, 63470 ####[facility] [facility] [place] [address], USAUFH HEPARIN ASSAYon 18-77-3647RKRZOAITTRCPGH HEPARIN0.36 IU/mL Normal0.30-0.70The [facility] [place] SouthComment on above:Result Comment: Rivaroxaban and Apixaban will interfere with the anti Xa assay used tomonitor UFH and LMWH.Performed By: #### 52437, 97076 ####[facility] [facility] [place] [address], USAANTI-BETA 2 GLYCOPROTEIN 1 on 71-04-4842TBUY B2GP1 IGG0.3 g unitsNormal0.0-19.9The [facility] [place] SouthComment on above:Performed By: #### 62977, 20804 ####[facility] [facility] [place] [address], USAANTI B2GP1 IGM2.4 m unitsNormal0.0-19.9The [facility] [place] SouthComment on above: Performed By: #### 63962, 43120 ####[facility] [place] [address], USAANTICARDIOLIPIN ANTIBODYon 08-14-2021 CARDIOLIPIN IGG12.1 GPLNormal0.0-22.9The [facility] [place] [facility] Comment on above:Performed By: #### 72361, 88379 ####[facility] [place] [address], USACARDIOLIPIN IGM1.1 MPL Normal0.0-10.9The [facility] [place] SouthComment on above:Performed By: #### 01417, 05855 ####[facility] [place] [address], USACOMP METABOLIC PANELon 15-21-3665Hfwelzq [Mass/Vol]3.7 g/dLNormal3.5-5.7The [facility] [place] SouthComment on above: Performed By: #### 22712, 81658, 78546, 59525, 89094 ####[facility] [place] [address], USAALKALINE YFGVGD52 IU/L Vlhyzj54-447Cjf [facility] [place] SouthComment on above:Performed By: #### 12054, 29240, 02532, 32727, 94374 ####[facility] [place] [address], USAALT [Catalytic activity/Vol]15 U/L Normal7-52The [facility] [place] SouthComment on above:Performed By: #### 07926, 94874, 25921, 83522, 78722 ####[facility] [place] [address], USAAST [Catalytic activity/Vol]16 U/L Rxgsja17-37Jfp [facility] [place] SouthComment on above:Performed By: #### 95375, 32191, 67208, 46478, 11292 ####[facility] [place] [address], USABilirubin [Mass/Vol]0.6 mg/dL Normal0.3-1.0The [facility] [place] SouthComment on above:Performed By: #### 20590, 23397, 60263, 30037, 12014 ####[facility] [place] [address], USACalcium [Mass/Vol]8.7 mg/dLNormal 8.6-10.3The [facility] [place] SouthComment on above:Performed By: #### 34237, 87996, 36506, 88989, 43434 ####[facility] [place] [address], USAChloride [Moles/Vol]108 mmol/LHigh 98-107The [facility] [place] SouthComment on above:Performed By: #### 28993, 30906, 88411, 78651, 60725 ####[facility] [place] [address], USACO2 [Moles/Vol]25 mmol/SRyhkss24-99Fje [facility] [place] SouthComment on above:Performed By: #### 87831, 53671, 61693, 25487, 70643 ####[facility] [place] [address], USACreatinine [Mass/Vol]0.77 mg/dLNormal0.70-1.30The [facility] [place] SouthComment on above:Performed By: #### 03185, 29794, 11348, 30002, 78757 ####[facility] [place] [address], USAGFR/1.73 sq M.predicted among blacks MDRD (S/P/Bld) [Vol rate/Area]mL/min/{1.73_m2}Normal>60The [facility] [place] [facility] Comment on above:Performed By: #### 33161, 95190, 34520, 48484, 12014 ####[facility] [place] [address], [place] GFR/1.73 sq M.predicted among non-blacks MDRD (S/P/Bld) [Vol rate/Area] mL/min/{1.73_m2}Normal>60The [facility] [place] SouthComment on above:Performed By: #### 54254, 63145, 44291, 89910, 06142 ####[facility] [place] [address], USAGlucose [Mass/Vol] 120 mg/uBBvui40-868Orj [facility] [place] SouthComment on above: Performed By: #### 41422, 42234, 22309, 69239, 95390 ####[facility] [place] [address], USAPotassium [Moles/Vol]4.3 mmol/LNormal3.5-5.1The [facility] [place] SouthComment on above: Performed By: #### 71858, 63511, 51135, 80639, 33429 ####[facility] [place] [address], USAProtein [Mass/Vol]6.5 g/dL Normal6.0-8.3The [facility] [place] SouthComment on above:Performed By: #### 97411, 00181, 46427, 76034, 47646 ####[facility] [place] [address], USASodium [Moles/Vol]140 mmol/LNormal 136-145The [facility] [place] SouthComment on above:Performed By: #### 83606, 47999, 78837, 90026, 31641 ####[facility] [place] [address], USAUrea nitrogen [Mass/Vol]21 mg/dL Normal7-25The [facility] [place] SouthComment on above:Performed By: #### 12069, 35618, 47567, 23586, 30810 ####[facility] [place] [address], [place]YCL[place] CITRULLINATED PEPTIDE [place] 24738vx 82-35-3852ZMLKRY CIT PEP5 UnitsNormal0-19The [facility] [place] SouthComment on above:Result Comment: INTERPRETIVE INFORMATION: Cyclic Citrullinated PeptideAntibody, IgG 19 Units or less ................... Negative 20-39 Units ........................ Weak Positive 40-59 Units ....... ................. Moderate Positive 60 Units or greater ................ Strong PositiveAnti-cycliccitrullinated peptide (anti-CCP), IgGantibodies are present in about 69-83 percent of patientswith rheumatoid arthritis (RA) and have specificities of93-95 percent. These autoantibodies may be present in thepreclinical phase of disease, are associated with future RAdevelopment, and may predict radiographic jointdestruction. Patients with weak positive results should bemonitored and testing repeated.Performed By: [facility] [place] [address]Esylnimxzs Director: JUAN Nelson T4on 21-39-3506Dlxz T4 [Mass/Vol]0.97 ng/dLNormal0.71-1.85The [facility] [place] SouthComment on above:Performed By: #### 09205, 93291, 09216, 17643, 50932 ####[facility] [place] [address], USAMAGNESIUM BLOODon 61-79-2366Xvzmwywuc [Mass/Vol]1.6 mg/dLLow1.9-2.7 The [facility] [place] SouthComment on above:Performed By: #### 28382, 24086, 62946, 68929, 14123 ####[facility] [place] [address], [facility]ICAL CENTERPHOSPHATIDYLSERINE ANTIBODIES, IGG AND IGM [id number] 68-11-6511AYXEXFSJAKOSGCHPHK ANTIBODY IGG0 GPSNormal0-15The [facility] [place] SouthComment on above:Result Comment: INTERPRETIVE INFORMATION: Phosphatidylserine Ab, IgGIgG and/or IgM antibodies to ludmila sphatidylserine (aPS) maybe associated with a positive test for anti- cardiolipinautoantibodies (aCL) and risk for obstetricantiphospholipid syndrome (APS). Strong clinicalcorrelation is recommended in the absence of lupusanticoagulant, IgG and/or IgM cardiolipin and/or fbgt4lzfenizxfznx antibodies.Isolated presence of IgM or IgG antibodies to aPS may havequestionable clinical significance for APSand/or SLE.If results are positive, repeat testing with two or morespecimens drawn at least 12 weeks apart to demonstratepersistence of antibodies.Results should not be used alone for diagnosis and must beinterpreted in light of APS-specific clinicalmanifestations and/or other criteria phospholipidantibodytests.PHOSPHATIDYLSERINE ANTIBODY IGM 0 MPSNormal0-21The [facility] [place] SouthComment on above:Result Comment: INTERPRETIVE INFORMATION: Phosphatidylserine Ab, IgMThe presence of IgG and/or IgM antibodies tophosphatidylserine (aPS) may be associated with a positivetest for anti-cardiolipin autoantibodies (aCL) and risk forobstetric antiphospholipid syndrome (APS). Strong clinicalcorrelation is recommended in the absence of lupusanticoagulant, IgG and/or IgM cardiolipin and/or hayt4oaajcwtlyvsn antibodies.Isolated presence of IgM or IgG antibodies to aPS may havequestionable clinical significance for APS and/or SLE.If results are positive, repeat testing with two or morespecimens drawn at least 12 weeks apart to demonstratepersistence of antibodies.Results should not be used alone for diagnosis and must beinterpreted in light of APS-specific clinicalmanifestations and/or other criteria phospholipid antibodytests.Performed By: [facility] [place] [address]Orxohmriem Director: FERNANDA Nelson BLOODon 44-62-9599Sugqruwvk [Mass/Vol]3.9 mg/dLNormal 2.5-5.0The [facility] [place] SouthComment on above:Performed By: #### 21352, 08890, 28014, 17084, 52205 ####[facility] [place] [address], USARHEUMATOID FACTOR SERUMon 93-23-6574HC<17Ckvgpb4-62Bmp [facility] [place] SouthComment on above:Performed By: #### 15629 ####[facility] [place] [address], VIJAAE4dv 67-84-3419DKQ 3RD GENERATION1.76 uIU/mLNormal0.34-5.60The [facility] [place] SouthComment on above: Performed By: #### 48988, 26443, 94088, 06531, 34227 ####[facility] [place] [address], USAUA,MICROSCOPIC REQUIREDon 99-71-4491Ilbbcyqnhi (U)CLEARNormalCLEARThe [facility] [place] [facility] Comment on above:Performed By: #### 96020 ####[facility] [place] [address], USABilirubin Ql (U)NegativeNormal NEGATIVEThe [facility] [place] SouthComment on above:Performed By: #### 85820 ####[facility] [place] [address], USAColor (U)STRAWAbnormalYELLOWThe [facility] [place] [facility] Comment on above:Performed By: #### 70844 ####[place] [address] [place] [address], USAEPISNONE SEENNormalFEW,OCC,NONE SEENThe [facility] [place] SouthComment on above:Performed By: #### 57347 ####[facility] [place] [address], [facility] CENTERGlucose Ql (U)NegativeNormalNEGATIVEThe [facility] [place] SouthComment on above:Performed By: #### 66785 ####[facility] [facility] [place] [address], [facility]ICAL CENTERHemoglobin Ql (U)SMALLAbnormal NEGATIVEThe [facility] [place] SouthComment on above:Performed By: #### 27787 ####[facility] [facility] [place] [address], [facility] CENTERKETONENegativeNormalNEGATIVEThe [facility] [place] [facility] Comment on above:Performed By: #### 16855 ####[facility] [facility] [place] [address], USALEUK ESTERNegativeNormalNEGATIVE The [facility] [place] SouthComment on above:Performed By: #### 43136 ####[facility] [facility] [place] [address], [place] Nitrite Ql (U)NegativeNormalNEGATIVEThe [facility] [place] [facility] Comment on above:Performed By: #### 27809 ####[facility] [facility] [place] [address], [facility] CENTERpH (U)5.0 [pH]Normal5.0-8.0The [facility] [place] SouthComment on above:Performed By: #### 42020 ####[facility] [facility] [place] [address], [facility] Protein Ql (U)NegativeNormalNEGATIVEThe [facility] [place] [facility] Comment on above:Performed By: #### 82489 ####[facility] [facility] [place] [address], USARBC0-2AbnormalNONE SEENThe [facility] [place] SouthComment on above:Performed By: #### 79685 ####[facility] [facility] [place] [address], [place] SPEC GRAV1.936Aup8.015-1.020The [facility] [place] SouthComment on above:Performed By: #### 16791 ####[facility] [place] [address], USAWBC UA0-2AbnormalNONE SEENThe [facility] [place] SouthComment on above:Performed By: #### 50592 ####[facility] [place] [address], USAPROF CHEM 8 (BAS METB)on 57-44-3159Vkpwd gap [Moles/Vol]9.2 mmol/LNormalThe [facility] Comment on above:Performed By: #### CBC #### [facility] [address] [address] [address] Terrence GundersonCalcium [Mass/Vol]8.5 mg/dLNormal8.5-10.1The [facility] Comment on above:Performed By: #### CBC #### [facility] [address] [address] [address] Terrence GundersonChloride [Moles/Vol]105 mmol/QNfoafm44-499Tgf [facility] Comment on above:Performed By: #### CBC #### [facility] [address] [address] [address] Terrence GundersonCO2 [Moles/Vol]29.7 mmol/CMlgoyl39.0-30.0The [facility] Comment on above:Performed By: #### CBC #### [facility] [address] [address] [address] Terrence GundersonCreatinine [Mass/Vol]0.92 mg/dLNormal0.66-1.25The [facility] HospitalComment on above:Performed By: #### CBC #### [facility] [address] [address] [address] Terrence Sotelo-AF MAURITIAN>60Normal>=60The [facility] HospitalComment on above:Performed By: #### CBC #### [facility] [address] [address] [address] Yilan ChangEGFR-NON AF MAURITIAN>60Normal>=60The [facility] HospitalComment on above:Performed By: #### CBC #### [facility] [address] [address] [address] Terrence GundersonGlucose [Mass/Vol]192 mg/dLCritically qhrr59-874Xmf [facility] HospitalComment on above:Performed By: #### CBC #### [facility] [address] [address] [address] Terrence GundersonPotassium [Moles/Vol]4.9 mmol/LNormal3.4-5.0The [facility] Comment on above:Performed By: #### CBC #### [facility] [address] [address] [address] Terrence GundersonSodium [Moles/Vol]139 mmol/BWrhfws691-857Pvp [facility] Comment on above:Performed By: #### CBC #### [facility] [address] [address] [address] Terrence GundersonUrea nitrogen [Mass/Vol]22.0 mg/dLCritically high7.0-18.0The [facility] HospitalComment on above:Performed By: #### CBC #### [facility] [address] [place] [address] Dr. Terrence Saldana nitrogen/Creatinine [Mass ratio]23.9 mg/mgNormalThe [facility] HospitalComment on above:Performed By: #### CBC #### [facility] [address] [address] [address] Terrence Gonsalez METABOLIC PANELon 38-02-4914Jxzrita [Mass/Vol]9.3 mg/dL Normal8.6-10.3The [facility] SouthComment on above:Order Comment: No: Do not add to previous drawPerformed By: #### 31268, 98026 ####[facility] [place] [address], [facility] Chloride [Moles/Vol]94 mmol/TKrg27-219Lax [facility] Comment on above:Order Comment: No: Do not add to previous drawPerformed By: #### 03664, 07704 ####[facility] [place] [address], USACO2 [Moles/Vol]29 mmol/SJrkugn00-20Vgg [facility] SouthComment on above:Order Comment: No: Do not add to previous drawPerformed By: #### 34235, 27453 ####[facility] [place] [address], USACreatinine [Mass/Vol]1.01 mg/dLNormal 0.70-1.30The [facility] SouthComment on above:Order Comment: No: Do not add to previous drawPerformed By: #### 30668, 14104 ####[facility] [place] [address], USAGFR/1.73 sq M.predicted among blacks MDRD (S/P/Bld) [Vol rate/Area]mL/min/{1.73_m2}Normal>60 The [facility] SouthComment on above:Order Comment: No: Do not add to previous drawPerformed By: #### 27523, 79848 ####[facility] [place] [address], USAGFR/1.73 sq M.predicted among non-blacks MDRD (S/P/Bld) [Vol rate/Area]mL/min/{1.73_m2}Normal>60The [facility] [place] SouthComment on above:Order Comment: No: Do not add to previous drawPerformed By: #### 00465, 46494 ####[facility] [place] [address], USAGlucose [Mass/Vol]176 mg/cAHijk96-030Zai [facility] SouthComment on above:Order Comment: No: Do not add to previous drawPerformed By: #### 34732, 21271 ####[facility] [place] [address], [place] Potassium [Moles/Vol]3.8 mmol/LNormal3.5-5.1The [facility] SouthComment on above:Order Comment: No: Do not add to previous drawPerformed By: #### 86781, 19392 ####[facility] [place] [address], USASodium [Moles/Vol]133 mmol/IFba249-140Pnp [facility] SouthComment on above:Order Comment: No: Do not add to previous drawPerformed By: #### 75084, 89315 ####[facility] [place] [address], USAUrea nitrogen [Mass/Vol]55 mg/dLHigh7-25The [facility] SouthComment on above:Order Comment: No: Do not add to previous drawPerformed By: #### 07209, 90751 ####[facility] [place] [address], USACBC COMPLETE BLOOD COUNTon 69-09-8776Rimanlkvkxt distribution width (RBC) [Ratio]14.4 %Gicohu02.5-15.0The [facility] SouthComment on above:Order Comment: No: Do not add to previous drawPerformed By: #### 47568 ####[facility] [place] [address], [facility]ICAL CENTERHematocrit (Bld) [Volume fraction] 32.0 %Low39.0-50.0The [facility] SouthComment on above:Order Comment: No: Do not add to previous drawPerformed By: #### 97635 ####[facility] [place] [address], USAHemoglobin (Bld) [Mass/Vol]10.5 g/dLLow13.0-17.0The [facility] SouthComment on above:Order Comment: No: Do not add to previous drawPerformed By: #### 20675 ####[facility] [facility] [place] [address], [facility] MCH (RBC) [Entitic mass]27.5 cdTtgiwb17.0-33.0The [facility] SouthComment on above:Order Comment: No: Do not add to previous drawPerformed By: #### 23444 ####[facility] [facility] [place] [address], [facility] CENTERMCHC (RBC) [Mass/Vol]32.8 g/bJFldtty92.0-35.0The [facility] SouthComment on above:Order Comment: No: Do not add to previous drawPerformed By: #### 84628 ####[facility] [facility] [place] [address], [facility] CENTERMCV (RBC) [Entitic vol]83.8 bSIzgbgq23.0-98.0 The [facility] SouthComment on above:Order Comment: No: Do not add to previous drawPerformed By: #### 80833 ####[facility] [facility] [place] [address], [facility] CENTERNucleated RBC/100 WBC (Bld) [Ratio]0 %Normal0-0The [facility] SouthComment on above:Order Comment: No: Do not add to previous drawPerformed By: #### 34575 ####[facility] [place] [address].[place] [address], [facility] PLAT RPD603 10*3/xDBbdglt978-666Eoe [facility] SouthComment on above:Order Comment: No: Do not add to previous drawPerformed By: #### 91704 ####[facility] [place] [address].[place] [address], [facility] RBC (Bld) [#/Vol]3.82 10*6/uLLow4.20-5.70The [facility] Comment on above:Order Comment: No: Do not add to previous drawPerformed By: #### 64433 ####[facility] [place] [address], USAWBC (Bld) [#/Vol]6.05 10*3/uLNormal4.00-10.60The [facility] SouthComment on above:Order Comment: No: Do not add to previous draw Performed By: #### 63440 ####[facility] [place] [address], USAHIV1 AND 2 COMBO 4Gon 82-25-9769SNC COMBONegativeNormal NEGATIVEThe [facility] SouthComment on above:Order Comment: add to previous labs if possiblePt refused. Mike cerna.Performed By: #### 92825 ####[facility] [place] [address], USAMAGNESIUM BLOODon 54-35-9846Scvofgxcn [Mass/Vol]2.4 mg/dLNormal1.9-2.7 The [facility] SouthComment on above:Order Comment: No: Do not add to previous drawPerformed By: #### 16992, 60424 ####[facility] [place] [address], USAPOC GLUCOSE LABon 94-50-5952Tneswde [Mass/Vol]195 mg/lANerf35-212Ewb [facility] SouthComment on above:Performed By: #### 38667 ####[facility] [place] [address], USABASIC METABOLIC PANELon 71-77-4531Ryosidm [Mass/Vol]8.8 mg/dLNormal8.6-10.3The [facility] SouthComment on above:Order Comment: No: Do not add to previous draw Performed By: #### 78731, 75751 ####[facility] [place] [address], USAChloride [Moles/Vol]95 mmol/FLas89-897Klb [facility] SouthComment on above:Order Comment: No: Do not add to previous drawPerformed By: #### 19031, 51460 ####[facility] [place] [address], USACO2 [Moles/Vol]27 mmol/L Qwwweb64-73Ugh [facility] SouthComment on above:Order Comment: No: Do not add to previous drawPerformed By: #### 40280, 31603 ####[facility] [place] [address], [place] Creatinine [Mass/Vol]1.16 mg/dLNormal0.70-1.30The [facility] SouthComment on above:Order Comment: No: Do not add to previous drawPerformed By: #### 60218, 60311 ####[facility] [place] [address], USAGFR/1.73 sq M.predicted among blacks MDRD (S/P/Bld) [Vol rate/Area]mL/min/{1.73_m2}Normal>60The [facility] Comment on above:Order Comment: No: Do not add to previous drawPerformed By: #### 34393, 26009 ####[facility] [place] [address], USAGFR/1.73 sq M.predicted among non-blacks MDRD (S/P/Bld) [Vol rate/Area]mL/min/{1.73_m2}Normal>60The [facility] Comment on above:Order Comment: No: Do not add to previous drawPerformed By: #### 03387, 61428 ####[facility] [place] [address], USAGlucose [Mass/Vol]183 mg/rASrin76-249Ety [facility] SouthComment on above:Order Comment: No: Do not add to previous drawPerformed By: #### 04983, 85584 ####[facility] [place] [address], USAPotassium [Moles/Vol]3.7 mmol/LNormal3.5-5.1 The [facility] SouthComment on above:Order Comment: No: Do not add to previous drawPerformed By: #### 31000, 48242 ####[facility] [place] [address], USASodium [Moles/Vol]134 mmol/APwm810-156Cws [facility] SouthComment on above:Order Comment: No: Do not add to previous drawPerformed By: #### 99200, 42531 ####[facility] [place] [address], [place] Urea nitrogen [Mass/Vol]63 mg/dLHigh7-25The [facility] Comment on above:Order Comment: No: Do not add to previous drawPerformed By: #### 09299, 06976 ####[facility] [place] [address], USACBC COMPLETE BLOOD COUNTon 48-96-5782Lyecjcpgkho distribution width (RBC) [Ratio]14.8 %Taxbgy84.5-15.0The [facility] SouthComment on above:Order Comment: No: Do not add to previous draw Performed By: #### 17826 ####[facility] [place] [address], USAHematocrit (Bld) [Volume fraction]30.6 %Low39.0-50.0The [facility] SouthComment on above:Order Comment: No: Do not add to previous drawPerformed By: #### 08010 ####[facility] [place] [address], USAHemoglobin (Bld) [Mass/Vol]10.3 g/dLLow13.0-17.0The [facility] SouthComment on above:Order Comment: No: Do not add to previous drawPerformed By: #### 83749 ####[facility] [facility] [place] [place] [address], [facility] (RBC) [Entitic mass]27.9 nnShwqti60.0-33.0The [facility] Comment on above:Order Comment: No: Do not add to previous drawPerformed By: #### 27855 ####[facility] [facility] [place] [address], [facility] [place] [facility] (RBC) [Mass/Vol]33.7 g/tASkmdna09.0-35.0The [facility] SouthComment on above:Order Comment: No: Do not add to previous draw Performed By: #### 20511 ####[facility] [facility] [place] [place] [address], [facility] (RBC) [Entitic vol]82.9 sRWumscs04.0-98.0The [facility] SouthComment on above:Order Comment: No: Do not add to previous drawPerformed By: #### 07071 ####[facility] [facility] [place] [place] [address], [facility]ICAL CENTERNucleated RBC/100 WBC (Bld) [Ratio]0 %Normal0-0The [facility] SouthComment on above:Order Comment: No: Do not add to previous drawPerformed By: #### 42823 ####[facility] [place] [address].[place] [address], [facility]ICAL CENTERPLAT HSB382 10*3/wPGstrbs773-182Mfj [facility] SouthComment on above: Order Comment: No: Do not add to previous drawPerformed By: #### 69332 ####[facility] [place] [address].[place] [address], [facility] RBC (Bld) [#/Vol]3.69 10*6/uLLow4.20-5.70The [facility] Comment on above:Order Comment: No: Do not add to previous drawPerformed By: #### 03078 ####[facility] [place] [address], [facility] MEDICAL CENTERWBC (Bld) [#/Vol]6.04 10*3/uLNormal4.00-10.60The [facility] SouthComment on above:Order Comment: No: Do not add to previous draw Performed By: #### 98540 ####[facility] [place] [address], USAMAGNESIUM BLOODon 97-34-3718Qbsthfcmf [Mass/Vol]2.6 mg/dLNormal1.9-2.7The [facility] SouthComment on above:Order Comment: No: Do not add to previous drawPerformed By: #### 58438, 11039 ####[facility] [place] [address], [facility] POC GLUCOSE LABon 40-10-3128Idzhmig [Mass/Vol]319 mg/hIMhrd16-765Ysi [facility] SouthComment on above:Performed By: #### 75401 ####[facility] [place] [address], USAGlucose [Mass/Vol]222 mg/mMBtdb66-340Dck [facility] SouthComment on above:Performed By: #### 40763 ####[facility] [place] [address], [facility] MEDICAL CENTERGlucose [Mass/Vol]246 mg/uFQnfm55-974Egk [facility] SouthComment on above:Performed By: #### 21348 ####[facility] [place] [address], [place] Glucose [Mass/Vol]172 mg/dXFwkx04-713Tjt [facility] Comment on above:Performed By: #### 76594 ####[facility] [place] [address], USAAPTTon 77-26-7125wJMX Coag (Bld) [Time]66.9 sHigh25.0-35.0The [facility] SouthComment on above:Order Comment: No: Do not add to previous drawResult Comment: ALL RESULTS MUST BE INTERPRETED WITH RESPECT TO BLOOD DRAWING ARTIFACTOR DILUTION ERROR OF ANTICOAGULANT AT THE TIME OF SAMPLING.THE APTT SHOULD NOT BE USED TO MONITOR UNFRACTIONATED HEPARIN THERAPY, THIS LABORATORY NO LONGER HAS AN ESTABLISHED THERAPEUTIC RANGE BASEDON THE APTT. IT IS RECOMMENDED THAT THE UFH - HEPARIN ASSAY (ANTI-XAACTIVITY) BE USED FOR THIS PURPOSE.Performed By: #### 16726 ####[facility] [facility] [place] [address], [facility] aPTT Coag (Bld) [Time]75.0 sCritically high25.0-35.0The [facility] SouthComment on above:Order Comment: No: Do not add to previous draw Result Comment: Result checked and called. Accurately read back by Summer Jensen [facility]t 0600ALL RESULTS MUST BE INTERPRETED WITH RESPECT TO BLOOD DRAWING ARTIFACTOR DILUTION ERROR OF ANTICOAGULANT AT THE TIME OF SAMPLING.THE APTT SHOULD NOT BE USED TO MONITOR UNFRACTIONATED HEPARIN THERAPY, THISLABORATORY NO LONGER HAS AN ESTABLISHED THERAPEUTIC RANGE BASEDON THE APTT. IT IS RECOMMENDED THAT THE UFH - HEPARIN ASSAY (ANTI-XAACTIVITY) BE USED FOR THIS PURPOSE.Performed By: #### 47461, 89444 ####[facility] [facility] [place] [place] [address], USABASIC METABOLIC PANELon 07-23-2021 Calcium [Mass/Vol]9.1 mg/dLNormal8.6-10.3The [facility] Comment on above:Order Comment: No: Do not add to previous drawPerformed By: #### 69821, 11832 ####[facility] [facility] [place] [place] [address], USAChloride [Moles/Vol]90 mmol/GDix85-211Tun [facility] SouthComment on above:Order Comment: No: Do not add to previous drawPerformed By: #### 10369, 98014 ####[facility] [place] [address], USACO2 [Moles/Vol]31 mmol/XRxzrmu20-02Twl [facility] SouthComment on above:Order Comment: No: Do not add to previous drawPerformed By: #### 23495, 43859 ####[facility] [place] [address], USACreatinine [Mass/Vol]1.47 mg/dLHigh0.70-1.30The [facility] SouthComment on above:Order Comment: No: Do not add to previous drawPerformed By: #### 68046, 63691 ####[facility] [place] [address], [place] eGFR- Fimhwnku01 ml/min/1.73sq mAbnormal>60The [facility] SouthComment on above:Order Comment: No: Do not add to previous draw Performed By: #### 74315, 24496 ####[facility] [place] [address], USAeGFR- non- Khxvfjib38 ml/min/1.73sq m Abnormal>60The [facility] SouthComment on above:Order Comment: No: Do not add to previous drawPerformed By: #### 56436, 43890 ####[facility] [place] [address], [place] Glucose [Mass/Vol]217 mg/jVWtaf68-376Dhw [facility] Comment on above:Order Comment: No: Do not add to previous drawPerformed By: #### 59677, 51834 ####[facility] [place] [address], USAPotassium [Moles/Vol]3.7 mmol/LNormal3.5-5.1The [facility] SouthComment on above:Order Comment: No: Do not add to previous drawPerformed By: #### 86733, 73847 ####[facility] [place] [address], USASodium [Moles/Vol]132 mmol/YTdq278-546Jhx [facility] SouthComment on above:Order Comment: No: Do not add to previous drawPerformed By: #### 44522, 28720 ####[facility] [place] [address], [place] Urea nitrogen [Mass/Vol]76 mg/dLHigh7-25The [facility] Comment on above:Order Comment: No: Do not add to previous drawPerformed By: #### 65666, 97957 ####[facility] [place] [address], USACBC COMPLETE BLOOD COUNTon 37-20-2657Zojagnhfite distribution width (RBC) [Ratio]14.7 %Wsecbw69.5-15.0The [facility] SouthComment on above:Order Comment: No: Do not add to previous draw Performed By: #### 67790 ####[facility] [place] [address], USAHematocrit (Bld) [Volume fraction]35.5 %Low39.0-50.0The [facility] SouthComment on above:Order Comment: No: Do not add to previous drawPerformed By: #### 49847 ####[facility] [place] [address], USAHemoglobin (Bld) [Mass/Vol]11.5 g/dLLow13.0-17.0The [facility] SouthComment on above:Order Comment: No: Do not add to previous drawPerformed By: #### 00343 ####[facility] [place] [address], USAMCH (RBC) [Entitic mass]27.4 pwQcdsfr87.0-33.0The [facility] Comment on above:Order Comment: No: Do not add to previous drawPerformed By: #### 74919 ####[facility] [place] [address], [facility] CENTERMCHC (RBC) [Mass/Vol]32.4 g/zWTvofyj35.0-35.0The [facility] SouthComment on above:Order Comment: No: Do not add to previous draw Performed By: #### 67687 ####[facility] [facility] [place] [address], [facility] CENTERMCV (RBC) [Entitic vol]84.7 qEItayjq60.0-98.0The [facility] SouthComment on above:Order Comment: No: Do not add to previous drawPerformed By: #### 79771 ####[facility] [facility] [place] [place] [address], [facility]ICAL CENTERNucleated RBC/100 WBC (Bld) [Ratio]0 %Normal0-0The [facility] SouthComment on above:Order Comment: No: Do not add to previous drawPerformed By: #### 22799 ####[facility] [facility] [place] [place] [address], [facility] MEDICAL CENTERPLAT [id number] 10*3/nIDcwaqa473-001Cux [facility] SouthComment on above: Order Comment: No: Do not add to previous drawPerformed By: #### 37418 ####[facility] [facility] [place] [place] [address], [facility] RBC (Bld) [#/Vol]4.19 10*6/uLLow4.20-5.70The [facility] Comment on above:Order Comment: No: Do not add to previous drawPerformed By: #### 40661 ####[facility] [place] [address].[place] [address], [facility] MEDICAL CENTERWBC (Bld) [#/Vol]8.21 10*3/uLNormal4.00-10.60The [facility] SouthComment on above:Order Comment: No: Do not add to previous draw Performed By: #### 39933 ####[facility] [place] [address], USACT ABDOMEN AND PELVIS WO CONTRASTon 60-97-8025JL ABDOMEN AND PELVIS WO CONTRASTNoBarberton [facility] Comment on above:Order Comment: Fluid Collection, abdominal firmnessCT LUMBAR SPINE WO CONTRASTon 21-23-6840II LUMBAR SPINE WO CONTRASTNormalThe [facility] SouthComment on above:Order Comment: OsteomyeomyelitisCT THORACIC SPINE WITHOUT CONTRASTon 23-25-1290BG THORACIC SPINE WITHOUT CONTRAST NormalThe [facility] SouthComment on above:Order Comment: OsteomyeomyelitisMAGNESIUM BLOODon 76-11-7303Scdpoekqs [Mass/Vol]2.4 mg/dLNormal 1.9-2.7The [facility] SouthComment on above:Order Comment: No: Do not add to previous drawPerformed By: #### 11632, 64091 ####[facility] [place] [address], USAPOC GLUCOSE LABon 43-62-9912Yrshefe [Mass/Vol]147 mg/dQZfgf43-126Ukr [facility] SouthComment on above:Performed By: #### 97569 ####[facility] [place] [address], USAGlucose [Mass/Vol]164 mg/dLHigh 70-100The [facility] SouthComment on above:Performed By: #### 03305 ####[facility] [place] [address], USAGlucose [Mass/Vol]192 mg/bTLzsf90-397Jia [facility] SouthComment on above:Performed By: #### 53368 ####[facility] [place] [address], USAGlucose [Mass/Vol]215 mg/dLHigh 70-100The [facility] SouthComment on above:Performed By: #### 41950 ####[facility] [facility] [place] [address], [facility]ICAL CENTERUFH HEPARIN ASSAYon 68-20-2055KTIUIAIIHBYNRS HEPARIN0.38 IU/mLNormal 0.30-0.70The [facility] SouthComment on above:Order Comment: ADDED PER PROTOCOLResult Comment: Rivaroxaban and Apixaban will interfere with the anti Xa assay used tomonitor UFH and LMWH.Performed By: #### 23250, 38247 ####[facility] [facility] [place] [place] [address], [facility] APTTon 25-81-6766jGDO Coag (Bld) [Time]38.6 sHigh25.0-35.0The [facility] SouthComment on above:Order Comment: No: Do not add to previous drawResult Comment: ALL RESULTS MUST BE INTERPRETED WITH RESPECT TO BLOOD DRAWING ARTIFACTOR DILUTION ERROR OF ANTICOAGULANT AT THE TIME OF SAMPLING.THE APTT SHOULD NOT BE USED TO MONITOR UNFRACTIONATED HEPARIN THERAPY, THIS LABORATORY NO LONGER HAS AN ESTABLISHED THERAPEUTIC RANGE BASEDON THE APTT. IT IS RECOMMENDED THAT THE UFH - HEPARIN ASSAY (ANTI-XAACTIVITY) BE USED FOR THIS PURPOSE.Performed By: #### 99700 ####[facility] [facility] [place] [place] [address], USAaPTT Coag (Bld) [Time]98.6 sCritically high 25.0-35.0The [facility] SouthComment on above:Order Comment: No: Do not add to previous drawResult Comment: Result checked and called. Accurately read back by Samara Thakur RN 07-22-21 at 1500.Clinical significance of the PTT result is questionable in the presenceof Heparin.Performed By: #### 75500 ####[facility] [facility] [place] [place] [address], USAaPTT Coag (Bld) [Time]135.0 sCritically high25.0-35.0The [facility] SouthComment on above:Order Comment: No: Do not add to previous drawResult Comment: Result checked and called. Accurately read back by Summer Jensen@[email or web address] CenterPerformed By: #### 35156 ####[facility] [place] [address], USABASIC METABOLIC PANELon 07-22-2021 Calcium [Mass/Vol]8.6 mg/dLNormal8.6-10.3The [facility] Comment on above:Order Comment: No: Do not add to previous drawPerformed By: #### 49192, 48239, 37301, 35497 ####[facility] [place] [address], USAChloride [Moles/Vol]90 mmol/KSzr27-715Sye [facility] SouthComment on above:Order Comment: No: Do not add to previous drawPerformed By: #### 66982, 82428, 42295, 95760 ####[facility] [place] [address], USACO2 [Moles/Vol] 29 mmol/TQybglw07-33Fng [facility] SouthComment on above: Order Comment: No: Do not add to previous drawPerformed By: #### 70720, 75062, 03224, 45610 ####[facility] [place] [address], USACreatinine [Mass/Vol]2.10 mg/dLHigh0.70-1.30The [facility] SouthComment on above:Order Comment: No: Do not add to previous draw Performed By: #### 91369, 73188, 69751, 99705 ####[facility] [place] [address], USAeGFR- Jqtmrknr81 ml/min/1.73sq mAbnormal>60The [facility] SouthComment on above:Order Comment: No: Do not add to previous drawPerformed By: #### 20674, 77415, 22326, 87475 ####[facility] [place] [address], USAeGFR- non- Vygoojbp71 ml/min/1.73sq mAbnormal>60 The [facility] SouthComment on above:Order Comment: No: Do not add to previous drawPerformed By: #### 34583, 41325, 70364, 52214 ####[facility] [place] [address], [place] Glucose [Mass/Vol]156 mg/eDWwlv57-949Axe [facility] Comment on above:Order Comment: No: Do not add to previous drawPerformed By: #### 94478, 67075, 09283, 06370 ####[facility] [place] [address], USAPotassium [Moles/Vol]3.3 mmol/LLow3.5-5.1The [facility] SouthComment on above:Order Comment: No: Do not add to previous drawPerformed By: #### 73101, 99793, 87495, 09964 ####[facility] [place] [address], USASodium [Moles/Vol]132 mmol/YRlq627-683Hau [facility] SouthComment on above:Order Comment: No: Do not add to previous drawPerformed By: #### 35874, 10216, 27172, 45833 ####[facility] [place] [address], USAUrea nitrogen [Mass/Vol]86 mg/dLHigh7-25The [facility] SouthComment on above:Order Comment: No: Do not add to previous drawPerformed By: #### 54367, 12606, 69172, 67582 ####[facility] [place] [address], USAC REACTIVE PROTEINon 54-69-2399KRF [Mass/Vol]79.5 mg/LHigh0.0-7.0The [facility] SouthComment on above:Order Comment: Yes: Add to Previous draw if ablePerformed By: #### 65227 ####[facility] [place] [address], USACBC COMPLETE BLOOD COUNTon 80-46-1746Qbbufexahkv distribution width (RBC) [Ratio]15.2 %High11.5-15.0The [facility] SouthComment on above:Order Comment: No: Do not add to previous draw Performed By: #### 19488 ####[facility] [facility] [place] [address], USAHematocrit (Bld) [Volume fraction]32.7 %Low39.0-50.0The [facility] SouthComment on above:Order Comment: No: Do not add to previous drawPerformed By: #### 49008 ####[facility] [place] [address], [facility] CENTERHemoglobin (Bld) [Mass/Vol]11.0 g/dLLow13.0-17.0The [facility] SouthComment on above:Order Comment: No: Do not add to previous drawPerformed By: #### 76085 ####[facility] [facility] [place] [address], [facility] CENTERMCH (RBC) [Entitic mass]27.6 dwXfpqqk10.0-33.0The [facility] Comment on above:Order Comment: No: Do not add to previous drawPerformed By: #### 03603 ####[facility] [facility] [place] [address], [facility] CENTERMCHC (RBC) [Mass/Vol]33.6 g/yODrujnd21.0-35.0The [facility] SouthComment on above:Order Comment: No: Do not add to previous draw Performed By: #### 02124 ####[facility] [facility] [place] [address], [facility] CENTERMCV (RBC) [Entitic vol]82.2 pNUrrjaf26.0-98.0The [facility] SouthComment on above:Order Comment: No: Do not add to previous drawPerformed By: #### 62595 ####[facility] [facility] [place] [address], USANucleated RBC/100 WBC (Bld) [Ratio]0 %Normal0-0The [facility] SouthComment on above:Order Comment: No: Do not add to previous drawPerformed By: #### 39861 ####[facility] [facility] [place] [address], USAPLAT HTB807 10*3/bBLapvlh900-292Ley [facility] SouthComment on above: Order Comment: No: Do not add to previous drawPerformed By: #### 51328 ####[facility] [facility] [place] [address], [facility] RBC (Bld) [#/Vol]3.98 10*6/uLLow4.20-5.70The [facility] Comment on above:Order Comment: No: Do not add to previous drawPerformed By: #### 04806 ####[facility] [facility] [place] [place] [address], [facility] CENTERWBC (Bld) [#/Vol]9.26 10*3/uLNormal4.00-10.60The [facility] SouthComment on above:Order Comment: No: Do not add to previous draw Performed By: #### 50319 ####[facility] [place] [address].[place] [address], [facility] CENTERMAGNESIUM BLOODon 00-47-6921Qtyicwgcq [Mass/Vol]2.3 mg/dLNormal1.9-2.7The [facility] SouthComment on above:Order Comment: No: Do not add to previous drawPerformed By: #### 61370, 66101, 61533, 74001 ####[facility] [place] [address], USAPHOSPHORUS BLOODon 94-60-6862Hrhzpnrnw [Mass/Vol]5.5 mg/dLHigh2.5-5.0The [facility] SouthComment on above:Order Comment: No: Do not add to previous drawPerformed By: #### 91116, 86171, 54423, 18599 ####[facility] [place] [address], USAPOC GLUCOSE LAB on 51-52-9008Pknkmln [Mass/Vol]260 mg/iZUepj13-238Uxh [facility] SouthComment on above:Performed By: #### 95885 ####[facility] [place] [address], USAGlucose [Mass/Vol]171 mg/eOFrsj21-443Mmj [facility] [place] SouthComment on above:Performed By: #### [id number] ####[facility] [place] [address], USAGlucose [Mass/Vol]186 mg/fJHimc52-099Hmi [facility] SouthComment on above:Performed By: #### 69026 ####[facility] [place] [address], USAGlucose [Mass/Vol] 178 mg/sDKxym57-572Oyj [facility] [place] SouthComment on above: Performed By: #### 57885 ####[facility] [place] [address], USASEDIMENTATION RATEon 12-38-3305WHD ISDS588 mm/hrHigh 0-10The [facility] [place] SouthComment on above:Order Comment: Yes: Add to Previous draw if ablePerformed By: #### 42071 ####[facility] [place] [address], USAVANCOMYCIN TIMEDon 72-49-8680NELLEFQEBX TIMED14.2 mcg/mLNormalThe [facility] [place] SouthComment on above:Performed By: #### 24567, 54982, 18168, 51335 ####[facility] [place] [address], [place] *BLOOD CULTUREon 07-21-2021*BLOOD CULTUREClinical Report: (D) Specimen: BLOOD CULTURE Collected: 07/21/2021 11:20 Status: Final Last Updated: 07/27/2021 06:23 CULT RES (Final) No Growth Day 5[facility] CampusComment on above: Performed By: #### 76737 ####[facility] [place] [address], USAAPTTon 52-54-4093nZWC Coag (Bld) [Time]77.4 sCritically high25.0-35.0The [facility] [place] SouthComment on above:Order Comment: No: Do not add to previous drawResult Comment: CLINICAL SIGNIFICANCE OF THE PTT RESULT IS QUESTIONABLE IN THE PRESENCEOF HEPARIN.RESULTS CHECKED AND CALLED. ACCURATELY READ BACK BY SAMARA THAKUR RN @0729Performed By: #### 98928, 32680 ####[facility] [place] [address], USABASIC METABOLIC PANELon 28-38-5192Gskkcnk [Mass/Vol]8.6 mg/dLNormal 8.6-10.3The [facility] [place] SouthComment on above:Order Comment: No: Do not add to previous drawPerformed By: #### 53967, 40805 ####[facility] [place] [address], USAChloride [Moles/Vol]90 mmol/IUal03-150Bpl [facility] [place] SouthComment on above:Order Comment: No: Do not add to previous drawPerformed By: #### 95988, 72140 ####[facility] [place] [address], USACO2 [Moles/Vol]27 mmol/MCxzqza21-18Lyu [facility] [place] SouthComment on above:Order Comment: No: Do not add to previous drawPerformed By: #### 35551, 55690 ####[facility] [place] [address], USACreatinine [Mass/Vol]1.89 mg/dLHigh0.70-1.30The [facility] [place] SouthComment on above:Order Comment: No: Do not add to previous drawPerformed By: #### 40694, 63158 ####[facility] [place] [address], USAeGFR- Xavzinos20 ml/min/1.73sq mAbnormal>60The [facility] [place] SouthComment on above:Order Comment: No: Do not add to previous drawPerformed By: #### 39772, 34145 ####[facility] [place] [address], USAeGFR- non- Yyxnlben42 ml/min/1.73sq mAbnormal>60The [facility] [place] SouthComment on above:Order Comment: No: Do not add to previous drawPerformed By: #### 12611, 89565 ####[facility] [place] [address], USAGlucose [Mass/Vol]180 mg/dLHigh 70-100The [facility] [place] SouthComment on above:Order Comment: No: Do not add to previous drawPerformed By: #### 51861, 37455 ####[facility] [place] [address], USAPotassium [Moles/Vol]3.5 mmol/LNormal3.5-5.1The [facility] [place] SouthComment on above:Order Comment: No: Do not add to previous drawPerformed By: #### 28082, 36382 ####[facility] [place] [address], USASodium [Moles/Vol]130 mmol/HDym892-072Hkw [facility] [place] SouthComment on above:Order Comment: No: Do not add to previous draw Performed By: #### 97794, 09549 ####[facility] [place] [address], USAUrea nitrogen [Mass/Vol]78 mg/dLHigh7-25The [facility] [place] SouthComment on above:Order Comment: No: Do not add to previous drawPerformed By: #### 17363, 23325 ####[facility] [place] [address], USAC REACTIVE PROTEINon 95-02-1923BRH [Mass/Vol]55.2 mg/LHigh0.0-7.0The [facility] [place] SouthComment on above:Order Comment: No: Do not add to previous drawPerformed By: #### 91099 ####[facility] [place] [address], USACBC COMPLETE BLOOD COUNTon 47-92-8555Rwyellmgygk distribution width (RBC) [Ratio]15.1 %High11.5-15.0The [facility] [place] [facility] Comment on above:Order Comment: No: Do not add to previous drawPerformed By: #### 23345 ####[facility] [place] [address], USAHematocrit (Bld) [Volume fraction]33.4 %Low39.0-50.0The [facility] [place] SouthComment on above:Order Comment: No: Do not add to previous drawPerformed By: #### 76305 ####[facility] [place] [address], USAHemoglobin (Bld) [Mass/Vol]10.9 g/dLLow 13.0-17.0The [facility] [place] SouthComment on above:Order Comment: No: Do not add to previous drawPerformed By: #### 73456 ####[facility] [address], [facility]ICAL CENTERMCH (RBC) [Entitic mass] 27.5 kqDvzqei35.0-33.0The [facility] [place] SouthComment on above: Order Comment: No: Do not add to previous drawPerformed By: #### 89995 ####[facility] [facility] [place] [address], [facility] MCHC (RBC) [Mass/Vol]32.6 g/sYYhdatp26.0-35.0The [facility] [place] SouthComment on above:Order Comment: No: Do not add to previous drawPerformed By: #### 38778 ####[facility] [facility] [place] [address], [facility] CENTERMCV (RBC) [Entitic vol]84.1 sJEukhej79.0-98.0The [facility] [place] SouthComment on above:Order Comment: No: Do not add to previous drawPerformed By: #### 92316 ####[facility] [facility] [place] [address], [facility]ICAL CENTERNucleated RBC/100 WBC (Bld) [Ratio]0 %Normal 0-0The [facility] [place] SouthComment on above:Order Comment: No: Do not add to previous drawPerformed By: #### 70031 ####[facility] [facility] [place] [place] [address], USAPLAT QQZ702 10*3/uLNormal 150-400The [facility] [place] SouthComment on above:Order Comment: No: Do not add to previous drawPerformed By: #### 48966 ####[facility] [place] [address].[place] [address], [facility] CENTERRBC (Bld) [#/Vol]3.97 10*6/uLLow4.20-5.70The [facility] [place] SouthComment on above:Order Comment: No: Do not add to previous drawPerformed By: #### 91222 ####[facility] [place] [address], USAWBC (Bld) [#/Vol]10.62 10*3/uLHigh4.00-10.60The [facility] [place] SouthComment on above:Order Comment: No: Do not add to previous drawPerformed By: #### 39234 ####[facility] [place] [address], [place] LACTATE WITH REFLEXon 77-71-8789Syikord [Moles/Vol]0.8 mmol/LNormal.5-2.2The [facility] [place] SouthComment on above:Order Comment: No: Do not add to previous drawPerformed By: #### 43005 ####[facility] [place] [address], USALDH BLOODon 18-38-2984UIS261 Units/FYkhqpn550-451Wfx [facility] [place] SouthComment on above: Order Comment: Yes: Add to Previous draw if ablePerformed By: #### 51015 ####[facility] [place] [address], [place] MAGNESIUM BLOODon 88-29-6716Mfeqbedhd [Mass/Vol]2.1 mg/dLNormal1.9-2.7The [facility] [place] SouthComment on above:Order Comment: No: Do not add to previous drawPerformed By: #### 36649, 48461 ####[facility] [place] [address], USAPOC GLUCOSE LABon 00-20-6705Rawwltv [Mass/Vol]193 mg/xIHtsy32-281Box [facility] [place] SouthComment on above:Performed By: #### 89370 ####[facility] [place] [address], USAGlucose [Mass/Vol]253 mg/dLHigh 70-100The [facility] [place] SouthComment on above:Performed By: #### 84932 ####[facility] [place] [address], USAGlucose [Mass/Vol]212 mg/uATzgt85-677Ssk [facility] [place] SouthComment on above:Performed By: #### 62044 ####[facility] [place] [address], USAGlucose [Mass/Vol]132 mg/dLHigh 70-100The [facility] [place] SouthComment on above:Performed By: #### 04348 ####[facility] [place] [address], USAPORTABLE CHEST 1 VIEWon 50-21-2574JKHOGDFK CHEST 1 VIEWNormalThe [facility] [place] SouthComment on above:Order Comment: R/O AtelectasisPROCALCITONINon 64-59-8880EHDLCDDQOETDJ0.09 ng/mLNormal0.00-0.10The [facility] [place] SouthComment on above:Order Comment: No: Do not add to previous drawResult Comment: Suspected Lower Respiratory Tract Infection:0.1-0.25ng/mL- Low likelihood for bacterial infection;Antibioticsdiscouraged.*>0.25ng/mL- Increased likelihood bacterial infection;Antibi oticsencouraged. Suspected Sepsis: Strongly consider initiating antibiotics in allunstable patients.0.1-0.5ng/mL- Low likelihood for sepsis; Antibiotics discouraged.*>0.5ng/mL- Increased likelihood sepsis; Antibiotics encourage d.>2.0ng/mL- High risk of sepsis/septic shock; Antibiotics stronglyencouraged. *Recommend retesting PCT within 6-12hours if clinically indicated andinitial PCT<0.5ng/mLPerformed By: #### 45432 ####[facility] [facility] [place] [address], USASEDIMENTATION RATEon 78-70-7445MDO XUXX322 mm/hrHigh0-10The [facility] [place] SouthComment on above:Order Comment: No: Do not add to previous drawPerformed By: #### 95667 ####[facility] [facility] [place] [address], [facility] CENTERUFH HEPARIN ASSAYon 07-21-2021 UNFRACTIONATED HEPARIN0.47 IU/mLNormal0.30-0.70The [facility] [place] SouthComment on above:Result Comment: Rivaroxaban and Apixaban will interfere with the anti Xa assay used tomonitor UFH and LMWH.Performed By: #### 46922, 73899 ####[facility] [facility] [place] [address], [facility] CENTERAPTTon 93-82-4147aNIQ Coag (Bld) [Time]82.0 sCritically high25.0-35.0 The [facility] [place] SouthComment on above:Order Comment: No: Do not add to previous drawResult Comment: Clinical significance of the PTT result is questionable in the presenceof Heparin.RESULTS CHECKED AND CALLED. ACCURATELY READ BACK BY Glenna Sow RN@2312 07/20/21Performed By: #### 80020, 21989 ####[facility] [facility] [place] [place] [address], [facility] aPTT Coag (Bld) [Time]79.5 sCritically high25.0-35.0The [facility] [place] SouthComment on above:Order Comment: No: Do not add to previous draw Result Comment: Result checked and called. Accurately read back by FRANCI CARPENTER RN ON07/20/2021 AT15:45Performed By: #### [id number] ####[facility] [place] [address], [facility] CENTERaPTT Coag (Bld) [Time]64.4 sHigh25.0-35.0The [facility] [place] SouthComment on above:Order Comment: No: Do not add to previous drawResult Comment: ALL RESULTS MUST BE INTERPRETED WITH RESPECT TO BLOOD DRAWING ARTIFACTOR DILUTION ERROR OF ANTICOAGULANT AT THE TIME OF SAMPLING.THE APTT SHOULD NOT BE USED TO MONITOR UNFRACTIONATED HEPARIN THERAPY, THIS LABORATORY NO LONGER HAS AN ESTABLISHED THERAPEUTIC RANGE BASEDON THE APTT. IT IS RECOMMENDED THAT THE UFH - HEPARIN ASSAY (ANTI-XAACTIVITY) BE USED FOR THIS PURPOSE.Performed By: #### 15263 ####[facility] [place] [address], [place] aPTT Coag (Bld) [Time]78.9 sCritically high25.0-35.0The [facility] [place] SouthComment on above:Order Comment: No: Do not add to previous draw Result Comment: CLINICAL SIGNIFICANCE OF THE PTT RESULT IS QUESTIONABLE IN THE PRESENCEOF HEPARIN.Result checked and called. Accurately read back by Elisabeth Pollard RN [id number] By: #### 37275 ####[facility] [place] [address], USABASIC METABOLIC PANELon 07-20-2021 Calcium [Mass/Vol]8.9 mg/dLNormal8.6-10.3The [facility] [place] [facility] Comment on above:Order Comment: No: Do not add to previous drawPerformed By: #### 11278, 77244, 71458 ####[facility] [place] [address], USAChloride [Moles/Vol]92 mmol/ZIbw49-463Imy [facility] [place] SouthComment on above:Order Comment: No: Do not add to previous drawPerformed By: #### 40992, 80309, 05109 ####[facility] [place] [address], USACO2 [Moles/Vol]25 mmol/LNormal 21-31The [facility] [place] SouthComment on above:Order Comment: No: Do not add to previous drawPerformed By: #### 78993, 23630, 67625 ####[facility] [place] [address], USACreatinine [Mass/Vol]1.97 mg/dLHigh0.70-1.30The [facility] [place] SouthComment on above:Order Comment: No: Do not add to previous drawPerformed By: #### 94354, 62518, 65787 ####[facility] [place] [address], USAeGFR- Ysaczezr80 ml/min/1.73sq mAbnormal>60The [facility] [place] SouthComment on above:Order Comment: No: Do not add to previous drawPerformed By: #### 76468, 51658, 48030 ####[facility] [place], [place] [address] [address], USAeGFR- non- 35 ml/min/1.73sq mAbnormal>60The [facility] [place] SouthComment on above:Order Comment: No: Do not add to previous drawPerformed By: #### 83541, 13224, 59089 ####[facility] [place] [address] [place] [address], USAGlucose [Mass/Vol]104 mg/cEZvok62-618Ncu [facility] [place] SouthComment on above:Order Comment: No: Do not add to previous draw Performed By: #### 14599, 63075, 88286 ####[facility] [place] [address], USAPotassium [Moles/Vol]4.3 mmol/L Normal3.5-5.1The [facility] [place] SouthComment on above:Order Comment: No: Do not add to previous drawPerformed By: #### 34336, 90087, 45650 ####[facility] [facility] [place] [address], [facility] Sodium [Moles/Vol]134 mmol/KZrv882-313Kjd [facility] [place] [facility] Comment on above:Order Comment: No: Do not add to previous drawPerformed By: #### 28997, 47180, 30418 ####[facility] [place] [address], USAUrea nitrogen [Mass/Vol]60 mg/dLHigh7-25The [facility] [place] SouthComment on above:Order Comment: No: Do not add to previous drawPerformed By: #### 46664, 14905, 89651 ####[facility] [facility] [place] [address], [facility]ICAL CENTERCBC W/DIFFon 30-55-9515ALU IMM GRANS0.0 10*3/uLNormal0.0-0.2The [facility] [place] SouthComment on above:Order Comment: No: Do not add to previous drawPerformed By: #### 98299 ####[facility] [facility] [place] [address], [place] ABS NEUTROPHILS4.4 10*3/uLNormal1.6-7.6The [facility] [place] [facility] Comment on above:Order Comment: No: Do not add to previous drawPerformed By: #### 26366 ####[facility] [facility] [place] [place] [address], [facility] CENTERBasophils (Bld) [#/Vol]0.1 10*3/uLNormal0.0-0.2The [facility] [place] SouthComment on above:Order Comment: No: Do not add to previous drawPerformed By: #### 48442 ####[facility] [facility] [place] [place] [address], [facility] CENTERBasophils/100 WBC (Bld)0.6 %Normal0.0-1.0The [facility] [place] SouthComment on above:Order Comment: No: Do not add to previous drawPerformed By: #### 91904 ####[facility] [place] [address], [facility]ICAL CENTEREosinophils (Bld) [#/Vol]0.2 10*3/uLNormal0.0-0.5The [facility] [place] SouthComment on above: Order Comment: No: Do not add to previous drawPerformed By: #### 67276 ####[facility] [facility] [place] [address], [facility] Eosinophils/100 WBC (Bld)1.8 %Normal0.0-6.0The [facility] [place] SouthComment on above:Order Comment: No: Do not add to previous drawPerformed By: #### 24515 ####[place] [address] [facility] [place] [address], USAErythrocyte distribution width (RBC) [Ratio]15.6 %High11.5-15.0The [facility] [place] SouthComment on above:Order Comment: No: Do not add to previous drawPerformed By: #### 20650 ####[facility] [facility] [place] [place] [address], [facility]ICAL CENTERHematocrit (Bld) [Volume fraction] 38.7 %Low39.0-50.0The [facility] [place] SouthComment on above:Order Comment: No: Do not add to previous drawPerformed By: #### 55462 ####[facility] [facility] [place] [address], USAHemoglobin (Bld) [Mass/Vol]12.3 g/dLLow13.0-17.0The [facility] [place] SouthComment on above:Order Comment: No: Do not add to previous drawPerformed By: #### 39535 ####[facility] [facility] [place] [address], [place] IMMATURE GRANS0.1 %Normal0.0-1.0The [facility] [place] SouthComment on above:Order Comment: No: Do not add to previous drawPerformed By: #### 69595 ####[facility] [place] [address].[place] [address], [facility] Lymphocytes (Bld) [#/Vol]2.8 10*3/uLNormal1.2-4.0The [facility] [place] SouthComment on above:Order Comment: No: Do not add to previous draw Performed By: #### 42708 ####[facility] [facility] [place] [address], [facility] CENTERLymphocytes/100 WBC (Bld)34.0 %Ccvhvj33.0-45.0The [facility] [place] SouthComment on above:Order Comment: No: Do not add to previous drawPerformed By: #### 10867 ####[facility] [place] [address].[place] [address], [facility] CENTERMCH (RBC) [Entitic mass]27.4 pg Srxrgh71.0-33.0The [facility] [place] SouthComment on above:Order Comment: No: Do not add to previous drawPerformed By: #### 33642 ####[facility] [place] [address].[place] [address], [facility] CENTERMCHC (RBC) [Mass/Vol]31.8 g/dLLow32.0-35.0The [facility] [place] SouthComment on above:Order Comment: No: Do not add to previous drawPerformed By: #### 11320 ####[facility] [facility] [place] [address], [facility] MCV (RBC) [Entitic vol]86.2 aXPeyyel74.0-98.0The [facility] [place] SouthComment on above:Order Comment: No: Do not add to previous drawPerformed By: #### 64280 ####[address] [place] [address], USAMonocytes (Bld) [#/Vol]0.8 10*3/uLNormal0.1-1.0The [facility] [place] SouthComment on above:Order Comment: No: Do not add to previous drawPerformed By: #### 80178 ####[facility] [place] [address], USAMONOS9.6 %Normal5.0-12.0The [facility] [place] SouthComment on above:Order Comment: No: Do not add to previous drawPerformed By: #### 29849 ####[facility] [place] [address], USANeutrophils/100 WBC (Bld)53.9 %Normal 40.0-72.0The [facility] [place] SouthComment on above:Order Comment: No: Do not add to previous drawPerformed By: #### 09496 ####[facility] [place] [address], USANucleated RBC/100 WBC (Bld) [Ratio]0 %Normal0-0The [facility] [place] SouthComment on above:Order Comment: No: Do not add to previous drawPerformed By: #### 30842 ####[facility] [place] [address], [place] PLAT XJG009 10*3/xOEvcorw346-765Ury [facility] [place] SouthComment on above:Order Comment: No: Do not add to previous drawPerformed By: #### 30901 ####[facility] [place] [address], [place] RBC (Bld) [#/Vol]4.49 10*6/uLNormal4.20-5.70The [facility] [place] SouthComment on above:Order Comment: No: Do not add to previous drawPerformed By: #### 31393 ####[facility] [place] [address], USAWBC (Bld) [#/Vol]8.24 10*3/uLNormal4.00-10.60The [facility] [place] SouthComment on above:Order Comment: No: Do not add to previous drawPerformed By: #### 51472 ####[facility] [place] [address], USAMAGNESIUM BLOODon 70-77-9755Ffymvgkkw [Mass/Vol]2.3 mg/dLNormal1.9-2.7The [facility] [place] SouthComment on above:Order Comment: No: Do not add to previous drawPerformed By: #### 59279, 78957, 74065 ####[facility] [place] [address], [facility] CENTERPHOSPHORUS BLOODon 28-64-5640Kpobmftcd [Mass/Vol]7.5 mg/dLHigh 2.5-5.0The [facility] [place] SouthComment on above:Order Comment: No: Do not add to previous drawPerformed By: #### 06857, 96906, 75944 ####[facility] [place] [address], [facility] POC GLUCOSE LABon 17-66-6155Ducpffl [Mass/Vol]214 mg/wDGyvr50-239Aar [facility] [place] SouthComment on above:Performed By: #### 94508 ####[facility] [place] [address], USAGlucose [Mass/Vol]120 mg/pGApvq41-952Wuw [facility] [place] SouthComment on above:Performed By: #### 32869 ####[facility] [place] [address], USAGlucose [Mass/Vol]252 mg/mRFhvr05-791Uns [facility] [place] SouthComment on above:Performed By: #### 02033 ####[facility] [place] [address], [place] Glucose [Mass/Vol]139 mg/aIUcis22-479Qlk [facility] [place] [facility] Comment on above:Performed By: #### 87623 ####[facility] [facility] [place] [address], [facility]ICAL CENTERUF HEPARIN ASSAYon 07-20-2021 UNFRACTIONATED HEPARIN0.50 IU/mLNormal0.30-0.70The [facility] [place] SouthComment on above:Result Comment: UFH added per protocolRivaroxaban and Apixaban will interfere with the anti Xa assay used tomonitor UFH and LMWH. Performed By: #### 87506, 75607 ####[facility] [facility] [place] [address], [facility] CENTERAPTBanner Heart Hospital 84-63-2212lPCR Coag (Bld) [Time]66.5 s High25.0-35.0The [facility] [place] SouthComment on above:Order Comment: No: Do not add to previous drawResult Comment: CLINICAL SIGNIFICANCE OF THE PTT RESULT IS QUESTIONABLE IN THE PRESENCEOF HEPARIN.ALL RESULTS MUST BE INTERPRETED WITH RESPECT TO BLOOD DRAWING ARTIFACTOR DILUTION ERROR OF ANTICOAGULANT AT THE TIME OF SAMPLING.THE APTT SHOULD NOT BE USED TO MONITOR UNFRACTIONATED HEPARIN THERAPY,ASTHIS LABORATORY NO LONGER HAS AN ESTABLISHED THERAPEUTIC RANGE BASEDON THE APTT. IT IS RECOMMENDED THAT THE UFH - HEPARIN ASSAY (ANTI-XAACTIVITY) BE USED FOR THIS PURPOSE.Performed By: #### [id number], 52538 ####[facility] [facility] [place] [address], [facility] aPTT Coag (Bld) [Time]64.3 sHigh25.0-35.0The [facility] Comment on above:Order Comment: No: Do not add to previous drawResult Comment: ALL RESULTS MUST BE INTERPRETED WITH RESPECT TO BLOOD DRAWING ARTIFACTOR DILUTION ERROR OF ANTICOAGULANT AT THE TIME OF SAMPLING.THE APTT SHOULD NOT BE USED TO MONITOR UNFRACTIONATED HEPARIN THERAPY, THIS LABORATORY NO LONGER HAS AN ESTABLISHED THERAPEUTIC RANGE BASEDON THE APTT. IT IS RECOMMENDED THAT THE UFH - HEPARIN ASSAY (ANTI-XAACTIVITY) BE USED FOR THIS PURPOSE.Performed By: #### [id number], 99941 ####[facility] [place] [address], USABASIC METABOLIC PANELon 09-65-8254Xkdvvjg [Mass/Vol]9.1 mg/dLNormal8.6-10.3The [facility] SouthComment on above: Order Comment: No: Do not add to previous drawPerformed By: #### 49023, 20158, 73444 ####[facility] [place] [address], USAChloride [Moles/Vol]94 mmol/GVsy25-304Jnl [facility] SouthComment on above:Order Comment: No: Do not add to previous drawPerformed By: #### 45165, 99753, 93465 ####[facility] [place] [address], USACO2 [Moles/Vol]28 mmol/NJyssak39-86Elu [facility] SouthComment on above:Order Comment: No: Do not add to previous drawPerformed By: #### 55726, 65390, 66003 ####[facility] [place] [address], USACreatinine [Mass/Vol]1.45 mg/dLHigh0.70-1.30The [facility] SouthComment on above:Order Comment: No: Do not add to previous drawPerformed By: #### 29819, 39163, 35292 ####[facility] [place] [address], USAeGFR- Hvmdyxzu47 ml/min/1.73sq mAbnormal>60The [facility] SouthComment on above:Order Comment: No: Do not add to previous drawPerformed By: #### 02757, 08546, 17860 ####[facility] [place] [address], USAeGFR- non- 50 ml/min/1.73sq mAbnormal>60The [facility] SouthComment on above:Order Comment: No: Do not add to previous drawPerformed By: #### 56170, 87641, 86795 ####[facility] [place] [address], [facility] CENTERGlucose [Mass/Vol]118 mg/kBTqvh67-755Vyd [facility] SouthComment on above:Order Comment: No: Do not add to previous draw Performed By: #### 18232, 21379, 17391 ####[facility] [place] [address], USAPotassium [Moles/Vol]3.7 mmol/L Normal3.5-5.1The [facility] SouthComment on above:Order Comment: No: Do not add to previous drawPerformed By: #### 46425, 68704, 20315 ####[facility] [place] [address], [place] Sodium [Moles/Vol]135 mmol/ILlx983-564Sub [facility] Comment on above:Order Comment: No: Do not add to previous drawPerformed By: #### 76425, 25556, 99857 ####[facility] [place] [address], USAUrea nitrogen [Mass/Vol]48 mg/dLHigh7-25The [facility] SouthComment on above:Order Comment: No: Do not add to previous drawPerformed By: #### 28440, 45849, 66826 ####[facility] [place] [address], [facility]ICAL CENTERCBC W/DIFFon 21-40-0610KKZ IMM GRANS0.0 10*3/uLNormal0.0-0.2The [facility] SouthComment on above:Order Comment: No: Do not add to previous drawPerformed By: #### 72308 ####[facility] [place] [address], [place] ABS NEUTROPHILS5.1 10*3/uLNormal1.6-7.6The [facility] Comment on above:Order Comment: No: Do not add to previous drawPerformed By: #### 92334 ####[facility] [place] [address], [facility] CENTERBasophils (Bld) [#/Vol]0.0 10*3/uLNormal0.0-0.2The [facility] SouthComment on above:Order Comment: No: Do not add to previous drawPerformed By: #### 42264 ####[facility] [facility] [place] [address], USABasophils/100 WBC (Bld)0.5 %Normal0.0-1.0The [facility] SouthComment on above:Order Comment: No: Do not add to previous drawPerformed By: #### 52117 ####[facility] [facility] [place] [address], [facility] CENTEREosinophils (Bld) [#/Vol]0.2 10*3/uLNormal0.0-0.5The [facility] SouthComment on above: Order Comment: No: Do not add to previous drawPerformed By: #### 98236 ####[facility] [facility] [place] [place] [address], [place] Eosinophils/100 WBC (Bld)2.2 %Normal0.0-6.0The [facility] SouthComment on above:Order Comment: No: Do not add to previous drawPerformed By: #### 18903 ####[facility] [facility] [place] [address], USAErythrocyte distribution width (RBC) [Ratio]15.5 %High11.5-15.0The [facility] SouthComment on above:Order Comment: No: Do not add to previous drawPerformed By: #### 01753 ####[facility] [place] [address], [facility] CENTERHematocrit (Bld) [Volume fraction] 33.6 %Low39.0-50.0The [facility] SouthComment on above:Order Comment: No: Do not add to previous drawPerformed By: #### 98879 ####[facility] [facility] [place] [address], [facility] CENTERHemoglobin (Bld) [Mass/Vol]10.8 g/dLLow13.0-17.0The [facility] SouthComment on above:Order Comment: No: Do not add to previous drawPerformed By: #### 10198 ####[facility] [facility] [place] [place] [address], [facility] IMMATURE GRANS0.2 %Normal0.0-1.0The [facility] SouthComment on above:Order Comment: No: Do not add to previous drawPerformed By: #### 38421 ####[facility] [facility] [place] [address], [facility] Lymphocytes (Bld) [#/Vol]2.7 10*3/uLNormal1.2-4.0The [facility] SouthComment on above:Order Comment: No: Do not add to previous draw Performed By: #### 42039 ####[facility] [facility] [place] [address], [facility] CENTERLymphocytes/100 WBC (Bld)31.2 %Gegmjy28.0-45.0The [facility] SouthComment on above:Order Comment: No: Do not add to previous drawPerformed By: #### 58712 ####[facility] [place] [address].[place] [address], [facility]ICAL CENTERMCH (RBC) [Entitic mass]27.5 pg Llapgz14.0-33.0The [facility] SouthComment on above:Order Comment: No: Do not add to previous drawPerformed By: #### 54603 ####[facility] [id number], [facility] CENTERMCHC (RBC) [Mass/Vol]32.1 g/tSTzkiqd44.0-35.0The [facility] SouthComment on above:Order Comment: No: Do not add to previous drawPerformed By: #### 91726 ####[facility] [place] [address], [facility] MCV (RBC) [Entitic vol]85.5 ySPxxhsz58.0-98.0The [facility] SouthComment on above:Order Comment: No: Do not add to previous drawPerformed By: #### 13265 ####[facility] [facility] [place] [address], [facility] CENTERMonocytes (Bld) [#/Vol]0.7 10*3/uLNormal0.1-1.0The [facility] SouthComment on above:Order Comment: No: Do not add to previous drawPerformed By: #### 42858 ####[facility] [facility] [place] [address], USAMONOS8.0 %Normal5.0-12.0The [facility] SouthComment on above:Order Comment: No: Do not add to previous drawPerformed By: #### 91670 ####[facility] [facility] [place] [address], [facility]ENTERNeutrophils/100 WBC (Bld)57.9 %Normal 40.0-72.0The [facility] SouthComment on above:Order Comment: No: Do not add to previous drawPerformed By: #### 76923 ####[facility] [facility] [place] [address], USANucleated RBC/100 WBC (Bld) [Ratio]0 %Normal0-0The [facility] SouthComment on above:Order Comment: No: Do not add to previous drawPerformed By: #### 52540 ####[facility] [place] [address], [facility] PLAT LFU565 10*3/gSManaqk258-157Xbo [facility] SouthComment on above:Order Comment: No: Do not add to previous drawPerformed By: #### 91149 ####[facility] [facility] [place] [address], [facility] RBC (Bld) [#/Vol]3.93 10*6/uLLow4.20-5.70The [facility] Comment on above:Order Comment: No: Do not add to previous drawPerformed By: #### 62036 ####[facility] [facility] [place] [address], [facility] CENTERWBC (Bld) [#/Vol]8.75 10*3/uLNormal4.00-10.60The [facility] SouthComment on above:Order Comment: No: Do not add to previous draw Performed By: #### 84984 ####[facility] [facility] [place] [place] [address], [facility] CENTERMAGNESIUM BLOODon 80-92-8697Uhhhznrxs [Mass/Vol]1.9 mg/dLNormal1.9-2.7The [facility] SouthComment on above:Order Comment: No: Do not add to previous drawPerformed By: #### 42553, 87510, 08263 ####[facility] [facility] [place] [place] [address], [facility] MICROALBUMIN URINE RANDOMon 21-34-3342Amyxmli DL <= 20 mg/L (U) [Mass/Vol]3.0 mg/dLNormalThe [facility]Comment on above:Order Comment: No: Do not add to previous drawPerformed By: #### 95870, 75547, 37931 ####[facility] [facility] [place] [place] [address], [facility] Creatinine (U) [Mass/Vol]62.0 mg/dLNoBarberton Citizens Hospital Comment on above:Order Comment: No: Do not add to previous drawResult Comment: There are no established reference values for random urine specimensPerformed By: #### 74100, 36685, 42342 ####[facility] [place] [address], USAMICROALBUMIN/CREATININE RATIO48.4 MG/G CREAT High0.0-30.0The [facility]Comment on above:Order Comment: No: Do not add to previous drawPerformed By: #### 48054, 60602, 30364 ####[facility] [place] [address], [place] PHOSPHORUS BLOODon 55-59-2573Rlsjtshgi [Mass/Vol]6.7 mg/dLHigh2.5-5.0The [facility]Comment on above:Order Comment: No: Do not add to previous drawPerformed By: #### 57778, 01591, 36037 ####[facility] [place] [address], USAPOC GLUCOSE LABon 86-63-8055Fekqzbu [Mass/Vol]213 mg/hFFcwn52-173Aym [facility] SouthComment on above:Performed By: #### 77415 ####[facility] [place] [address], USAGlucose [Mass/Vol]256 mg/dLHigh 70-100The [facility] SouthComment on above:Performed By: #### 78195 ####[facility] [place] [address], USAGlucose [Mass/Vol]269 mg/qNQlqs21-588Hlm [facility] SouthComment on above:Performed By: #### 90581 ####[facility] [place] [address], USAGlucose [Mass/Vol]157 mg/dLHigh 70-100The [facility] SouthComment on above:Performed By: #### 40877 ####[facility] [place] [address], USASODIUM URINE RANDOMon 26-84-2945Nbxiry (U) [Moles/Vol]77 mmol/LNormal The [facility] SouthComment on above:Order Comment: No: Do not add to previous drawResult Comment: There are no established reference values for random urine specimensPerformed By: #### 82749, 42195, 15918 ####[facility] [place] [address], [place] UA,MICROSCOPIC REQUIREDon 17-46-3351Izqedvxhpq (U)SL CLOUDYAbnormalCLEARThe [facility]Comment on above:Order Comment: No: Do not add to previous drawPerformed By: #### 51826 ####[facility] [place] [address], USABilirubin Ql (U)NegativeNormal NEGATIVEThe [facility] SouthComment on above:Order Comment: No: Do not add to previous drawPerformed By: #### 31513 ####[facility] [place] [address], USAColor (U)YELLOWNormal YELLOWThe [facility] SouthComment on above:Order Comment: No: Do not add to previous drawPerformed By: #### 01240 ####[facility] [place] [address], USAEPISNONE SEENNormal FEW,OCC,NONE SEENThe [facility]Comment on above:Order Comment: No: Do not add to previous drawPerformed By: #### 47000 ####[facility] [place] [address], USAGlucose Ql (U) NegativeNormalNEGATIVEThe [facility] SouthComment on above: Order Comment: No: Do not add to previous drawPerformed By: #### 10527 ####[facility] [place] [address], [place] Hemoglobin Ql (U)SMALLAbnormalNEGATIVEThe [facility] Comment on above:Order Comment: No: Do not add to previous drawPerformed By: #### 29543 ####[facility] [place] [address], USAHyaline casts LM Ql (Urine sed)6 /LPFAbnormalNONE SEENThe [facility] SouthComment on above:Order Comment: No: Do not add to previous drawPerformed By: #### 05602 ####[facility] [place] [address], USAKETONENegativeNormalNEGATIVEThe [facility] SouthComment on above:Order Comment: No: Do not add to previous drawPerformed By: #### 27664 ####[facility] [place] [address], USALEUK ESTERNegativeNormalNEGATIVE The [facility] SouthComment on above:Order Comment: No: Do not add to previous drawPerformed By: #### 58612 ####[facility] [place] [address], USAMUCUS THREADSOCCAbnormal NONE SEENThe [facility] SouthComment on above:Order Comment: No: Do not add to previous drawPerformed By: #### 84881 ####[facility] [place] [address], USANitrite Ql (U)Negative NormalNEGATIVEThe [facility] SouthComment on above:Order Comment: No: Do not add to previous drawPerformed By: #### 84553 ####[facility] [place] [address], USApH (U)5.0 [pH] Normal5.0-8.0The [facility] SouthComment on above:Order Comment: No: Do not add to previous drawPerformed By: #### 29225 ####[facility] [facility].[address]Protein Ql (U) NegativeNormalNEGATIVEThe [facility] SouthComment on above: Order Comment: No: Do not add to previous drawPerformed By: #### 22227 ####[facility] [facility].[address] RBC3-5AbnormalNONE SEENThe [facility] SouthComment on above: Order Comment: No: Do not add to previous drawPerformed By: #### 57116 ####[facility] [facility].[address] SPEC GRAV1.367Nqk8.015-1.020The [facility] SouthComment on above:Order Comment: No: Do not add to previous drawPerformed By: #### 21741 ####[facility] [facility].[address] WBC UA0-2AbnormalNONE SEENThe [facility] SouthComment on above:Order Comment: No: Do not add to previous drawPerformed By: #### 62761 ####[place] [address] [facility].[address] UFH HEPARIN ASSAYon 10-70-5834MPVRPMBTMLRBYC HEPARIN0.42 IU/mLNormal0.30-0.70The [facility] SouthComment on above:Result Comment: Rivaroxaban and Apixaban will interfere with the anti Xa assay used tomonitor UFH and LMWH.Rivaroxaban and Apixaban will interfere with the anti Xa assay used tomonitor UFH and LMWH.Performed By: #### 73924, 95476 ####[facility] [facility] [place] [address], USAUNFRACTIONATED HEPARIN0.42 IU/mLNormal0.30-0.70The [facility] SouthComment on above: Result Comment: Rivaroxaban and Apixaban will interfere with the anti Xa assay used tomonitor UFH and LMWH.Performed By: #### 27585 ####[facility] [facility] [place] [address], USAUNFRACTIONATED HEPARIN0.48 IU/mLNormal0.30-0.70The [facility] SouthComment on above: Order Comment: Added on per protocolResult Comment: Rivaroxaban and Apixaban will interfere with the anti Xa assay used tomonitor UFH and LMWH.Performed By: #### 36291, 73909 ####[place] [address] [facility] [place] [address], USAUREA NITROGEN URon 04-92-3601Mlit nitrogen [Mass/Vol] 148 mg/dLNoBarberton Citizens HospitalComment on above:Order Comment: No: Do not add to previous drawResult Comment: There are no established reference values for random urine specimensPerformed By: #### 43440, 63128, 85372 ####[place] [address] [facility] [place] [place] [address], USAAPTTon 00-65-4195rKGB Coag (Bld) [Time]49.2 sHigh25.0-35.0The [facility] SouthComment on above:Order Comment: This order is a replacement of the rejected order with accession [id number].Result Comment: ALL RESULTS MUST BE INTERPRETED WITH RESPECT TO BLOOD DRAWING ARTIFACTOR DILUTION ERROR OF ANTICOAGULANT AT THE TIME OF SAMPLING.THE APTT SHOULD NOT BE USED TO MONITOR UNFRACTIONATED HEPARIN THERAPY, THIS LABORATORY NO LONGER HAS AN ESTABLISHED THERAPEUTIC RANGE BASEDON THE APTT. IT IS RECOMMENDED THAT THE UFH - HEPARIN ASSAY (ANTI-XAACTIVITY) BE USED FOR THIS PURPOSE.Performed By: #### 39657 ####[place] [address] [facility] [place] [address], USAaPTT Coag (Bld) [Time]38.4 sHigh25.0-35.0The [facility] SouthComment on above:Result Comment: ALL RESULTS MUST BE INTERPRETED WITH RESPECT TO BLOOD DRAWING ARTIFACTOR DILUTION ERROR OF ANTICOAGULANT AT THE TIME OF SAMPLING.THE APTT SHOULD NOT BE USED TO MONITOR UNFRACTIONATED HEPARIN THERAPY, THIS LABORATORY NO LONGER HAS AN ESTABLISHED THERAPEUTIC RANGE BASEDON THE APTT. IT IS RECOMMENDED THAT THE UFH - HEPARIN ASSAY (ANTI-XAACTIVITY) BE USED FOR THIS PURPOSE.Performed By: #### 48368, 99854 ####[facility] [place] [address], [facility] aPTT Coag (Bld) [Time]33.3 uRnjhpj96.0-35.0The [facility] SouthComment on above:Order Comment: No: Do not add to previous drawResult Comment: ALL RESULTS MUST BE INTERPRETED WITH RESPECT TO BLOOD DRAWING ARTIFACTOR DILUTION ERROR OF ANTICOAGULANT AT THE TIME OF SAMPLING.THE APTT SHOULD NOT BE USED TO MONITOR UNFRACTIONATED HEPARIN THERAPY, THIS LABORATORY NO LONGER HAS AN ESTABLISHED THERAPEUTIC RANGE BASEDON THE APTT. IT IS RECOMMENDED THAT THE UFH - HEPARIN ASSAY (ANTI-XAACTIVITY) BE USED FOR THIS PURPOSE.Performed By: #### 72683, 45900, 91897 ####[place] [address] [facility] [place] [address], USABASIC METABOLIC PANELon 07-18-2021 Calcium [Mass/Vol]9.2 mg/dLNormal8.6-10.3The [facility] Comment on above:Order Comment: No: Do not add to previous drawPerformed By: #### 11270, 50490 ####[facility] [place] [address], USAChloride [Moles/Vol]99 mmol/KMzmjll57-148Hud [facility] SouthComment on above:Order Comment: No: Do not add to previous drawPerformed By: #### 76050, 00086 ####[facility] [place] [place] [address], USACO2 [Moles/Vol]28 mmol/LNormal 21-31The [facility] SouthComment on above:Order Comment: No: Do not add to previous drawPerformed By: #### 14089, 84945 ####[facility] [place] [address], USACreatinine [Mass/Vol]0.88 mg/dLNormal0.70-1.30The [facility] Comment on above:Order Comment: No: Do not add to previous drawPerformed By: #### 54348, 22213 ####[facility] [place] [address], USAGFR/1.73 sq M.predicted among blacks MDRD (S/P/Bld) [Vol rate/Area]mL/min/{1.73_m2}Normal>60The [facility] Comment on above:Order Comment: No: Do not add to previous drawPerformed By: #### 11162, 39117 ####[facility] [place] [address], USAGFR/1.73 sq M.predicted among non-blacks MDRD (S/P/Bld) [Vol rate/Area]mL/min/{1.73_m2}Normal>60The [facility] Comment on above:Order Comment: No: Do not add to previous drawPerformed By: #### 84878, 40134 ####[facility] [place] [address], USAGlucose [Mass/Vol]132 mg/wJActj46-214Ule [facility] SouthComment on above:Order Comment: No: Do not add to previous drawPerformed By: #### 51502, 16491 ####[facility] [place] [address], USAPotassium [Moles/Vol]3.6 mmol/LNormal3.5-5.1 The [facility] SouthComment on above:Order Comment: No: Do not add to previous drawPerformed By: #### 31060, 07395 ####[facility] [place] [address], USASodium [Moles/Vol]135 mmol/UBsz687-843Gqu [facility] SouthComment on above:Order Comment: No: Do not add to previous drawPerformed By: #### 60662, 58883 ####[facility] [place] [address], [place] Urea nitrogen [Mass/Vol]28 mg/dLHigh7-25The [facility] Comment on above:Order Comment: No: Do not add to previous drawPerformed By: #### 57478, 46106 ####[facility] [place] [address], USACalcium [Mass/Vol]9.3 mg/dLNormal8.6-10.3The [facility] SouthComment on above:Order Comment: No: Do not add to previous drawPerformed By: #### 16509, 24616, 33692, 22813 ####[facility] [place] [address], USAChloride [Moles/Vol] 102 mmol/PFqqjbw15-417Peh [facility] SouthComment on above: Order Comment: No: Do not add to previous drawPerformed By: #### 77530, 87701, 53763, 09206 ####[facility] [place] [address], USACO2 [Moles/Vol]26 mmol/CCpcgll92-77Fds [facility] SouthComment on above:Order Comment: No: Do not add to previous drawPerformed By: #### 76539, 02162, 38021, 81194 ####[facility] [place] [address], USACreatinine [Mass/Vol]0.84 mg/dLNormal0.70-1.30 The [facility] [facility] - Columbus SouthComment on above:Order Comment: No: Do not add to previous drawPerformed By: #### 99309, 95549, 53967, 01365 ####[facility] [facility] [address], [place] GFR/1.73 sq M.predicted among blacks MDRD (S/P/Bld) [Vol rate/Area] mL/min/{1.73_m2}Normal>60The [facility] SouthComment on above:Order Comment: No: Do not add to previous drawPerformed By: #### 47575, 29226, 51610, 12931 ####[facility] [place] [address], USAGFR/1.73 sq M.predicted among non-blacks MDRD (S/P/Bld) [Vol rate/Area]mL/min/{1.73_m2}Normal>60The [facility] Comment on above:Order Comment: No: Do not add to previous drawPerformed By: #### 27846, 79451, 20974, 22087 ####[facility] [facility] [place] [address], USAGlucose [Mass/Vol]112 mg/oBRszo76-202Qhf [facility] SouthComment on above:Order Comment: No: Do not add to previous drawPerformed By: #### 03900, 97973, 49648, 68553 ####[facility] [facility] [place] [address], USAPotassium [Moles/Vol]3.7 mmol/LNormal3.5-5.1The [facility] SouthComment on above:Order Comment: No: Do not add to previous drawPerformed By: #### 78450, 04910, 85179, 32157 ####[facility] [place] [address], USASodium [Moles/Vol]136 mmol/BVphfcn559-534Bvz [facility] SouthComment on above:Order Comment: No: Do not add to previous drawPerformed By: #### 84864, 14186, 36546, 17478 ####[facility] [place] [address], USAUrea nitrogen [Mass/Vol]27 mg/dLHigh7-25The [facility] SouthComment on above:Order Comment: No: Do not add to previous drawPerformed By: #### 64598, 74640, 15761, 57630 ####[facility] [place] [address], USACBC COMPLETE BLOOD COUNTon 93-58-7019Hhbzutoyujc distribution width (RBC) [Ratio]15.3 %High11.5-15.0The [facility] SouthComment on above:Order Comment: No: Do not add to previous draw Performed By: #### 45604 ####[facility] [place] [address], USAHematocrit (Bld) [Volume fraction]30.2 %Low39.0-50.0The [facility] SouthComment on above:Order Comment: No: Do not add to previous drawPerformed By: #### 58548 ####[facility] [place] [address], USAHemoglobin (Bld) [Mass/Vol]10.0 g/dLLow13.0-17.0The [facility] SouthComment on above:Order Comment: No: Do not add to previous drawPerformed By: #### 74299 ####[facility] [place] [address], [facility] CENTERMCH (RBC) [Entitic mass]27.4 jyVzhbmg96.0-33.0The [facility] Comment on above:Order Comment: No: Do not add to previous drawPerformed By: #### 76961 ####[facility] [place] [address], [facility]ICAL CENTERMCHC (RBC) [Mass/Vol]33.1 g/uXXgzfzi25.0-35.0The [facility] SouthComment on above:Order Comment: No: Do not add to previous draw Performed By: #### 53879 ####[facility] [place] [address], [facility]ICAL CENTERMCV (RBC) [Entitic vol]82.7 tUSkxbhg29.0-98.0The [facility] SouthComment on above:Order Comment: No: Do not add to previous drawPerformed By: #### 08253 ####[facility] [place] [address], [facility] MEDICAL CENTERNucleated RBC/100 WBC (Bld) [Ratio]0 %Normal0-0The [facility] SouthComment on above:Order Comment: No: Do not add to previous drawPerformed By: #### 92330 ####[facility] [place] [address], USAPLAT [id number] 10*3/iGZjykbi258-933Vdx [facility] SouthComment on above: Order Comment: No: Do not add to previous drawPerformed By: #### 75962 ####[facility] [facility] [place] [address], [facility] RBC (Bld) [#/Vol]3.65 10*6/uLLow4.20-5.70The [facility] Comment on above:Order Comment: No: Do not add to previous drawPerformed By: #### 83315 ####[facility] [place] [address], [facility] MEDICAL CENTERWBC (Bld) [#/Vol]6.12 10*3/uLNormal4.00-10.60The [facility] SouthComment on above:Order Comment: No: Do not add to previous draw Performed By: #### 82946 ####[facility] [place] [address], [facility]ICAL CENTERCBC W/DIFFon 03-17-2814DPH IMM GRANS0.0 10*3/uLNormal 0.0-0.2The [facility] SouthComment on above:Performed By: #### 32069 ####[facility] [facility] [place] [address], [facility] CENTERABS NEUTROPHILS2.9 10*3/uLNormal1.6-7.6The [facility] SouthComment on above:Performed By: #### 87725 ####[facility] [place] [address].[place] [address], [facility] MEDICAL CENTERBasophils (Bld) [#/Vol] 0.0 10*3/uLNormal0.0-0.2The [facility] SouthComment on above: Performed By: #### 61194 ####[address] [place] [address], [facility] CENTERBasophils/100 WBC (Bld)0.5 %Normal0.0-1.0The [facility] SouthComment on above:Performed By: #### 15254 ####[address] [place] [address], [facility] Eosinophils (Bld) [#/Vol]0.1 10*3/uLNormal0.0-0.5The [facility] SouthComment on above:Performed By: #### 08688 ####[address] [place] [address], [facility] CENTEREosinophils/100 WBC (Bld) 2.2 %Normal0.0-6.0The [facility] SouthComment on above: Performed By: #### 00978 ####[address] [place] [address], [facility] MEDICAL CENTERErythrocyte distribution width (RBC) [Ratio]15.5 %High 11.5-15.0The [facility] SouthComment on above:Performed By: #### 03183 ####[address] [place] [address], [facility] MEDICAL CENTERHematocrit (Bld) [Volume fraction]31.0 %Low39.0-50.0The [facility] SouthComment on above:Performed By: #### 17581 ####[place] [address], [facility]ICAL CENTERHemoglobin (Bld) [Mass/Vol]10.2 g/dLLow13.0-17.0The [facility] SouthComment on above:Performed By: #### 18090 ####[place] [address], [facility] MEDICAL CENTERIMMATURE GRANS0.2 %Normal0.0-1.0The [facility] SouthComment on above:Performed By: #### 17341 ####[place] [address], [facility] Lymphocytes (Bld) [#/Vol]1.9 10*3/uLNormal1.2-4.0The [facility] SouthComment on above:Performed By: #### 42380 ####[place] [address], [facility] MEDICAL CENTERLymphocytes/100 WBC (Bld) 34.4 %Dxdvpu20.0-45.0The [facility] SouthComment on above: Performed By: #### 66419 ####[place] [address], [facility] CENTERMCH (RBC) [Entitic mass]27.6 iyHkcpjl85.0-33.0The [facility] SouthComment on above:Performed By: #### 23441 ####[place] [address], [facility] MCHC (RBC) [Mass/Vol]32.9 g/yLFphlhb21.0-35.0The [facility] SouthComment on above:Performed By: #### 47381 ####[facility] [place] [address], [facility] CENTERMCV (RBC) [Entitic vol]83.8 fL Pjsjab10.0-98.0The [facility] SouthComment on above:Performed By: #### 29088 ####[facility] [place] [address], [facility] CENTERMonocytes (Bld) [#/Vol]0.6 10*3/uLNormal0.1-1.0The [facility] SouthComment on above:Performed By: #### 28053 ####[facility] [place] [address], UKQKIGNQ64.3 %Normal 5.0-12.0The [facility] SouthComment on above:Performed By: #### 10702 ####[facility] [facility] [place] [address], [facility]ICAL CENTERNeutrophils/100 WBC (Bld)52.4 %Ghuago71.0-72.0The [facility] SouthComment on above:Performed By: #### 05631 ####[facility] [facility] [place] [address], USANucleated RBC/100 WBC (Bld) [Ratio]0 %Normal0-0The [facility] SouthComment on above:Performed By: #### 78933 ####[facility] [place] [address], USAPLAT OFH310 10*3/dEMycibn294-710Xyj [facility] SouthComment on above:Performed By: #### 50055 ####[facility] [facility] [place] [address], [facility] RBC (Bld) [#/Vol]3.70 10*6/uLLow4.20-5.70The [facility] Comment on above:Performed By: #### 41709 ####[facility] [place] [address], USAWBC (Bld) [#/Vol]5.56 10*3/uL Normal4.00-10.60The [facility] SouthComment on above: Performed By: #### 01835 ####[facility] [place] [address], USAHEMOGLOBIN A1Con 14-25-5719Zgbyxlp [Moles/Vol]146 mmol/LNormalThe [facility] SouthComment on above:Order Comment: If not done in EDNo: Do not add to previous drawPerformed By: #### 07774 ####[facility] [place] [address], AWCBhM2c (Bld) [Mass fraction]6.7 %High4.0-6.0The [facility] SouthComment on above:Order Comment: If not done in EDNo: Do not add to previous drawPerformed By: #### 56962 ####[facility] [place] [address], USALIVER BATTERYon 21-85-0237Wtiguht [Mass/Vol]4.0 g/dLNormal3.5-5.7The [facility] SouthComment on above:Order Comment: No: Do not add to previous drawPerformed By: #### 21992, 43769, 22838, 00847 ####[facility] [place] [address], USAALKALINE IMNISF36 IU/VTkxyte18-207Tfc [facility] SouthComment on above:Order Comment: No: Do not add to previous drawPerformed By: #### 24016, 49301, 58167, 30119 ####[facility] [place] [address], USAALT [Catalytic activity/Vol]17 U/LNormal7-52The [facility] SouthComment on above:Order Comment: No: Do not add to previous drawPerformed By: #### 21776, 56229, 79710, 44789 ####[facility] [place] [address], USAAST [Catalytic activity/Vol]20 U/EDezbyh78-40Ogr [facility] SouthComment on above:Order Comment: No: Do not add to previous drawPerformed By: #### 40603, 91244, 45903, 13875 ####[facility] [place] [address], USABilirubin [Mass/Vol]0.6 mg/dLNormal0.3-1.0The [facility] SouthComment on above:Order Comment: No: Do not add to previous drawPerformed By: #### 85963, 74503, 16487, 01330 ####[facility] [place] [address], USABilirubin.direct [Mass/Vol]0.2 mg/dLNormal0.0-0.2The [facility] SouthComment on above:Order Comment: No: Do not add to previous drawPerformed By: #### 67567, 05291, 79349, 09696 ####[facility] [place] [address], USAProtein [Mass/Vol]7.3 g/dLNormal6.0-8.3The [facility] SouthComment on above:Order Comment: No: Do not add to previous drawPerformed By: #### 76435, 55449, 85026, 50538 ####[facility] [place] [address], USAMAGNESIUM BLOODon 63-26-9723Lzedjiuar [Mass/Vol]1.8 mg/dLLow1.9-2.7The [facility] SouthComment on above:Order Comment: No: Do not add to previous drawPerformed By: #### 95262, 93581 ####[facility] [place] [address], [place] Magnesium [Mass/Vol]1.7 mg/dLLow1.9-2.7The [facility] Comment on above:Order Comment: No: Do not add to previous drawPerformed By: #### 19699, 75713, 93818, 24861 ####[facility] [place] [address], USAPOC GLUCOSE LABon 61-40-0286Txmveom [Mass/Vol] 244 mg/lAZcmb36-182Swk [facility] SouthComment on above: Performed By: #### 38763 ####[facility] [place] [address], USAGlucose [Mass/Vol]155 mg/hCPavb02-232Mmp [facility] SouthComment on above:Performed By: #### 99484 ####[facility] [place] [address], USAGlucose [Mass/Vol] 246 mg/dIErac36-458Wfm [facility] SouthComment on above: Performed By: #### 22816 ####[facility] [place] [address], USAGlucose [Mass/Vol]140 mg/cAMtvd59-736Qmz [facility] SouthComment on above:Performed By: #### 13888 ####[facility] [place] [address], USAPOC SARS COV2 ANTIGEN NEGATIVEon 38-16-9603VOU SARS COV2 ANTIGEN NEGNegativeNormalNEGATIVEThe [facility] SouthComment on above:Result Comment: Negative results should be treated as presumptive and [...] protein antigen from SARS-CoV-2 in directnasopharyngeal swab (DYE BLENDER) specimens from individuals who are suspected ofCOVID-19 [...] of Waiver, Certificate of Compliance, or Certificate ofAccreditation.Performed By: #### 09823 ####[facility] [place] [address], [facility] CENTERPROTHROMBIN TIMEon 49-89-2739AEY Coag (PPP) [Relative time]1.07 {INR}Normal0.91-1.16The [facility] SouthComment on above:Result Comment: ACCCP RECOMMENDED INR FOR WARFARIN THERAPY CONDITION INRPROPHYLAXIS OF VENOUS THROMBOSIS 2-3(HIGH-RISK SURGERY)TREATMENT OF VENOUS THROMBOSIS 2-3TREATMENT OF PULMONARY EMBOLISM 2-3PREVENTION OF SYSTEMIC EMBOLISM: 2-3 ACUTE MYOCARDIAL INFARCTION TISSUE HEART VALVES VALVULAR HEART DISEASE ATRIAL FIBRILLATION RECURRENT SYSTEMIC EMBOLISMMECHANICAL HEART VALVE 2.5-3.5 FROM: ORAL ANTICOAGULANTS. MECHANISM OF ACTION, CLINICALEFFECTIVENESS, AND OPTIMAL THERAPEU TIC RANGE. [id number];108:231S-246S.Performed By: #### 78477, 25770, 52516 ####[facility] [place] [address], [place] PT Coag (PPP) [Time]13.9 gYfypfk07.3-14.8The [facility] Comment on above:Result Comment: ALL RESULTS MUST BE INTERPRETED WITH RESPECT TO BLOOD DRAWING ARTIFACTOR DILUTION ERROR OF ANTICOAGULANT AT THE TIME OF SAMPLING.Performed By: #### 92991, 88847, 46104 ####[facility] [place] [address], USAINR Coag (PPP) [Relative time] 1.08 {INR}Normal0.91-1.16The [facility] SouthComment on above:Order Comment: No: Do not add to previous drawResult Comment: [facility] RECOMMENDED INR FOR WARFARIN THERAPY CONDITION INRPROPHYLAXIS OF VENOUS THROMBOSIS 2-3(HIGH-RISK SURGERY)TREATMENT OF VENOUS THROMBOSIS 2-3TREATMENT OF PULMONARY EMBOLISM 2-3PREVENTION OF SYSTEMIC EMBOLISM: 2-3 ACUTE MYOCARDIAL INFARCTION TISSUE HEART VALVES VALVULAR HEART DISEASE ATRIAL FIBRILLATION RECURRENT SYSTEMIC EMBOLISMMECHANICAL HEART VALVE 2.5-3.5 FROM: ORAL ANTICOAGULANTS. MECHANISM OF ACTION, CLINICALEFFECTIVENESS, AND OPTIMAL THERAPEU TIC RANGE. [id number];108:231S-246S.Performed By: #### 67598 ####[facility] [place] [address], USAPT Coag (PPP) [Time]14.0 ySdxcul20.3-14.8The [facility] SouthComment on above:Order Comment: No: Do not add to previous drawResult Comment: ALL RESULTS MUST BE INTERPRETED WITH RESPECT TO BLOOD DRAWING ARTIFACTOR DILUTION ERROR OF ANTICOAGULANT AT THE TIME OF SAMPLING.Performed By: #### 99935 ####[address] [address] [facility] [place] [address], USATROPONIN-Ion 25-53-0984Xhqalmts I.cardiac [Mass/Vol]0.01 ng/mLNormal0.00-0.04The [facility] SouthComment on above:Order Comment: No: Do not add to previous drawResult Comment: REFERENCE RANGES: 0.00 - 0.04 ng/ml NORMAL 0.05 - 0.50 ng/ml INDETERMINATE > 0.50 ng/ml CONSISTENT WITH AN M.I.Performed By: #### 24630, 82322, 87019, 61834 ####[address] [facility] [place] [address], [facility]ICAL CENTERUFH HEPARIN ASSAYon 23-16-1815YZZJXZCNTGLVED HEPARIN 0.34 IU/mLNormal0.30-0.70The [facility] SouthComment on above:Result Comment: Rivaroxaban and Apixaban will interfere with the anti Xa assay used tomonitor UFH and LMWH.Performed By: #### 08882, 20119 ####[address] [facility] [place] [address], [facility] CENTERUNFRACTIONATED HEPARIN0.27 IU/mLLow0.30-0.70The [facility] SouthComment on above:Result Comment: Rivaroxaban and Apixaban will interfere with the anti Xa assay used tomonitor UFH and LMWH.Performed By: #### 02121, 55612, 96538 ####[address] [place] [address], [facility] BNP (B-TYPE NATRIURETIC PEPTIDE)on 82-99-0195Jaalxjidrdb peptide B (Bld) [Mass/Vol]85 pg/mLNormal0-100The [facility] SouthComment on above:Order Comment: Yes: Add to Previous draw if ableResult Comment: Given the appropriate clinical setting a BNP result of >100 pg/mLindicates congestive heart failure.Performed By: #### 94940 ####[facility] [place] [address], [facility] MEDICAL CENTERPOC GLUCOSE LABon 07-17-2021 Glucose [Mass/Vol]184 mg/lPAglf53-739Iqf [facility] Comment on above:Performed By: #### 04897 ####[facility] [place] [address], USAGlucose [Mass/Vol]106 mg/dLHigh 70-100The [facility] SouthComment on above:Performed By: #### 84180 ####[facility] [place] [address], USAPORTABLE CHEST 1 VIEWon 34-89-4727PPRMQYTX CHEST 1 VIEWNoBarberton Citizens HospitalComment on above:Order Comment: Evaluate for CardiomegalyXR FOOT CRUZ MIN 3 VIEWSon 62-78-2306MG FOOT CRUZ MIN 3 VIEWS EXAMINATION: XR [...] Electronically authenticated by: ZARINA CHUNG Date: 2021-06-19 11:[address] [place] [address] AUTO DIFFon [id number] #0.1 103/ulNormal0.0-0.1The [facility] HospitalComment on above:Performed By: #### CBC #### [facility] [address] [place] [address] Dr. Terrence GundersonBasophils/100 WBC (Bld)0.8 %Normal0.2-2.0The [facility] Comment on above:Performed By: #### CBC #### [facility] [address] [address] [address] Terrence Tan #0.1 103/ulNormal0.0-0.7The [facility] HospitalComment on above: Performed By: #### CBC #### [facility] [address] [place] [address] Dr. Terrence Campbellosinophils/100 WBC (Bld)1.1 %Normal0.9-7.0The [facility] Comment on above:Performed By: #### CBC #### [facility] [address] [place] [address] Dr. Terrence Campbellrythrocyte distribution width (RBC) [Ratio]15.4 %Critically high 11.0-15.0The [facility] HospitalComment on above:Performed By: #### CBC #### [facility] [address] [place] [address] Dr. Terrence GundersonHematocrit (Bld) [Volume fraction]31.8 %Critically low42.0-54.0 The [facility] HospitalComment on above:Performed By: #### CBC #### [facility] [address] [place] [address] Dr. Terrence GundersonHemoglobin (Bld) [Mass/Vol]9.8 g/dLCritically low14.0-18.0The [facility] HospitalComment on above:Performed By: #### CBC #### [facility] [address] [place] [address] Dr. Terrence Sanchez #0.02 10e3/ulNormal0.00-0.03The [facility] HospitalComment on above:Performed By: #### CBC #### [facility] [address] [address] [address] Terrence Sanchez %0.3 %Normal0.0-0.5The [facility] on above: Performed By: #### CBC #### [facility] [address] [address] [address] Terrence Bland #1.9 103/ulNormal1.2-3.8The [facility] HospitalComment on above:Performed By: #### CBC #### [facility] [address] [place] [address] Dr. Terrence Duartehocytes/100 WBC (Bld)30.6 %Toccnr63.5-60.0The [facility] on above:Performed By: #### CBC #### [facility] [address] [place] [address] Dr. Terrence EliUAL DIFF REQNONormalThe [facility] HospitalComment on above: Performed By: #### CBC #### [facility] [address] [place] [address] Dr. Terrence Amanda (RBC) [Entitic mass]26.7 tsWzikxl55.9-34.0The [facility] on above:Performed By: #### CBC #### [facility] [address] [place] [address] Dr. Terrence Amanda (RBC) [Mass/Vol]30.8 g/fXKzognv93.9-35.2The [facility] on above:Performed By: #### CBC #### [facility] [address] [place] [address] Dr. Terrence Amanda (RBC) [Entitic vol]86.6 zPLyoggw68.0-94.0The [facility] on above:Performed By: #### CBC #### [facility] [address] [place] [address] Dr. Terrence Benton #0.5 103/ulNormal0.3-0.8The [facility] HospitalComcorewell health [facility] on above:Performed By: #### CBC #### [facility] [address] [place] [address] Dr. Terrence Tomlinsonocytes/100 WBC (Bld)7.6 %Normal1.7-12.0The [facility] Comment on above:Performed By: #### CBC #### [facility] [address] [place] [address] Dr. Terrence HowardUT #3.8 103/ulNormal1.4-6.5The [facility] HospitalComment on above:Performed By: #### CBC #### [facility] [address] [place] [address] Dr. Terrence Howardutrophils/100 WBC (Bld)59.6 %Ggbclh61.0-75.0The [facility] HospitalComment on above:Performed By: #### CBC #### [facility] [address] [place] [address] Dr. Terrence Lynchlet mean volume (Bld) [Entitic vol]11.1 fLNormal9.5-13.5The [facility] HospitalComment on above:Performed By: #### CBC #### [facility] [address] [place] [address] Dr. Terrence GundersonPLT202 103/hdOotpxo433-924Bfc [facility] HospitalComment on above: Performed By: #### CBC #### [facility] [address] [place] [address] Dr. Terrence GundersonRBC3.67 106/ulCritically low4.70-6.10The [facility] HospitalComment on above:Performed By: #### CBC #### [facility] [address] [place] [address] Dr. Terrence GundersonWBC6.3 103/ulNormal4.0-11.0The [facility] HospitalComment on above: Performed By: #### CBC #### [facility] [address] [place] [address] Dr. Terrence Rollisn BLOODon 91-38-9641Fyexutrqtot examination of blood, cultureCulture Observations: NO GROWTH AT 5 DAYS.NormalThe [facility] HospitalComment on above:Performed By: #### CBC #### [facility] [address] [address] [address] Terrence GundersonPROF CHEM 8 (BAS METB)on 66-44-4184Xjrog gap [Moles/Vol]12.1 mmol/LNormalThe [facility] HospitalComment on above:Performed By: #### CBC #### [facility] [address] [address] [address] Terrence GundersonCalcium [Mass/Vol]9.4 mg/dLNormal8.4-10.2[facility] Comment on above:Performed By: #### CBC #### [facility] [address] [address] [address] Terrence GundersonChloride [Moles/Vol]105 mmol/GChailt83-966Pnq [facility] Comment on above:Performed By: #### CBC #### [facility] [address] [address] [address] Terrence GundersonCO2 [Moles/Vol]28.3 mmol/VYzftre89.0-30.0The [facility] Comment on above:Performed By: #### CBC #### [facility] [address] [address] [address] Terrence GundersonCreatinine [Mass/Vol]0.68 mg/dLNormal0.66-1.25[facility]:Performed By: #### CBC #### [facility] [address] [address] [address] Terrence CampbellGFR-AF MAURITIAN>60Normal>=60[facility]:Performed By: #### CBC #### [facility] [address] [address] [address] Terrence CampbellGFR-NON AF MAURITIAN>60Normal>=60[facility] above:Performed By: #### CBC #### [facility] [address] [address] [address] Terrence GundersonGlucose [Mass/Vol]119 mg/dLCritically ajkn01-299[facility] HospitalComment on above:Performed By: #### CBC #### [facility] [address] [address] [address] Terrence GundersonPotassium [Moles/Vol]4.4 mmol/LNormal3.4-5.0[facility] Comment on above:Performed By: #### CBC #### [facility] [address] [address] [address] Terrence GundersonSodium [Moles/Vol]141 mmol/UHhswor727-777Siy [facility] Comment on above:Performed By: #### CBC #### [facility] [address] [address] [address] Terrence GundersonUrea nitrogen [Mass/Vol]20.0 mg/dLNormal9.0-20.0[facility] above:Performed By: #### CBC #### [facility] [address] [address] [address] Terrence GundersonUrea nitrogen/Creatinine [Mass ratio]29.4 mg/mgNoCincinnati Shriners HospitalComment on above:Performed By: #### CBC #### [facility] [address] [address] [address] Terrence GundersonXR FOOT LT MIN 3 VIEWSon [id number] FOOT LT MIN 3 VIEWS EXAMINATION: XR [...] Electronically authenticated by: KARIN RDZ Date: 2021-04-18 12:13[facility] Vital Signs Date TimeVital SignValuePerforming [id number] 13:55-0400Body kebmon648.34 cmSuraj Liz MD Work Phone: 1(833)[address] [place], [place] 9453910-29-2025 13:55-0400 Body mass index (BMI) [Ratio]38.9 kg/r1CpgmkdSuraj Liz MD Work Phone: 1(257)[address] [place], [place] 9453910-29-2025 13:55-0400 Body uqfmgj331.55 kgSuraj Liz MD Work Phone: 1(362)[address] [place], [place] 9453910-29-2025 13:55-0400 Diastolic blood cprehwld36 mm[Hg]Suraj Liz MD Work Phone: 1(691)[address] [place], [place] 9453910-29-2025 13:55-0400 Heart rate85 /George Liz MD Work Phone: 1(098)[address] [place], [place] 9453910-29-2025 13:55-0400 SaO2% (BldA) [Mass fraction]97 %Suraj Liz MD Work Phone: 1(432)[address] [place], [place] 9453910-29-2025 13:55-0400 Systolic blood xezkbrwl417 mm[Hg]Suraj Liz MD Work Phone: 1(679)[address] [place], [place] 9453910-27-2025 10:43-0400 Diastolic blood dlaiozlx60 mm[Hg]Suraj Liz MD Work Phone: 1(781)[address] [place], [place] 9453910-27-2025 10:43-0400 Heart rate83 /George Liz MD Work Phone: 1(047)[address] [place], [place] 9453910-27-2025 10:43-0400 Respiratory rate18 /George Liz MD Work Phone: 1(119)[address] [place], [place] 9453910-27-2025 10:43-0400 SaO2% (BldA) [Mass fraction]100 %Suraj Liz MD Work Phone: 1(844)[address] [place], [place] 9453910-27-2025 10:43-0400 Systolic blood mm[Hg]Suraj Liz MD Work Phone: 1(862)[address]10-27-2025 10:36-0400 Body okgede304.34 cmSuraj Liz MD Work Phone: 1(305)[address] [place], [place] 9453910-27-2025 10:36-0400 Body vxcniz762.4 kgSuraj Liz MD Work Phone: 1(586)[address] [place], [place] 9453910-01-2025 10:55-0400 Body cwhifh372.34 cmSuraj Liz MD Work Phone: 1(778)[address] [place], [place] 945[address]10-01-2025 10:55-0400 Body mass index (BMI) [Ratio]38.2 kg/g4OwmywfSuraj Liz MD Work Phone: 1(486)[address] [place], [place] 9453910-01-2025 10:55-0400 Body nlyclt907.28 kgSuraj Liz MD Work Phone: 1(813)[address] [place], [place] 945[address]10-01-2025 10:55-0400 Diastolic blood rouebmme50 mm[Hg]Suraj Liz MD Work Phone: 1(106)[address] [place], [place] 945[address]10-01-2025 10:55-0400 Heart rate91 /George Liz MD Work Phone: 1(381)[address] [place], [place] 945[address]10-01-2025 10:55-0400 Respiratory rate14 /George Liz MD Work Phone: 1(131)[address] [place], [place] 945[address]10-01-2025 10:55-0400 SaO2% (BldA) [Mass fraction]98 %Suraj iLz MD Work Phone: 1(907)[address] [place], [place] 945[address]10-01-2025 10:55-0400 Systolic blood mm[Hg]Suraj Liz MD Work Phone: 1(173)[address] [place], [place] 9453908-21-2025 12:10-0400 Body wuwqnzancly45.5 [degF]Suraj Liz MD Work Phone: 1(454)[address] [place], [place] 9453908-21-2025 12:10-0400 Diastolic blood xbgcmijr35 mm[Hg]Suraj Liz MD Work Phone: [facility]08-21-2025 12:10-0400 Heart rate98 /minSuraj Liz MD Work Phone: 1(937)616-68[facility]08-21-2025 12:10-0400 Respiratory rate20 /George Liz MD Work Phone: 1(989)883-79[facility]08-21-2025 12:10-0400 SaO2% (BldA) [Mass fraction]96 %Suraj Liz MD Work Phone: 1(722)[phone]08-21-2025 12:10-0400 Systolic blood bljpeloj816 mm[Hg]Suraj Liz MD Work Phone: 1(496)[address]08-21-2025 08:32-0400 Body ohehwk024.6 kgSuraj Liz MD Work Phone: 1(607)[address]08-21-2025 08:10-0400 Body jlrvyx929.34 cmSuraj Liz MD Work Phone: 1(879)023-66[facility]08-20-2025 13:22-0400 Body exzhft589.3 cmAjoseline Romo MD Work Phone: 1(211)[address]08-20-2025 13:22-0400Body mass index (BMI) [Ratio]36.96 kg/c4HunwbLaz Romo MD Work Phone: 1(269)[address] [place], [place] [address]Uqywjfxqgc85-12-5998 13:22-0400Body pstqxy895.2 kgLaz Romo MD Work Phone: 1(161)[address]08-20-2025 13:22-0400Diastolic blood svmqffsu05 mm[Hg]Laz Romo MD Work Phone: 1(470)[address] [address]-20-2025 13:22-0400Heart rate89 /min Laz Romo MD Work Phone: 1(008)176-[address] [place], [place] [address]20-2025 13:22-0400Respiratory rate18 /minLaz Romo MD Work Phone: 1(419)[address]08-20-2025 13:22-1943AlU9% (BldA) [Mass fraction]95 %Laz Romo MD Work Phone: 1(186)[address]08-20-2025 13:22-0400Systolic blood blzakfje098 mm[Hg]Laz Romo MD Work Phone: 1(987)[address]07-28-2025 13:22-0400Body gjvfus134.34 cmSuraj Liz MD Work Phone: 1(517)[address]07-28-2025 13:22-0400 Body mass index (BMI) [Ratio]37.2 kg/f4SedhkkSuraj Liz MD Work Phone: 1(156)[address] [place], [place] 945[address]07-28-2025 13:22-0400 Body .1 kgSuraj Liz MD Work Phone: 1(604)[address] [place], [place] [address]07-28-2025 13:22-0400 Diastolic blood uygbwdty47 mm[Hg]Suraj Liz MD Work Phone: 1(059)[address] [place], [place] 9[address]3907-28-2025 13:22-0400 Heart rate81 /George Liz MD Work Phone: 1(438)[address] [place], [place] 9[address]3907-28-2025 13:22-0400 Respiratory rate14 /George Liz MD Work Phone: 1(909)[address] [place], [place] [address]07-28-2025 13:22-0400 SaO2% (BldA) [Mass fraction]94 %Suraj Liz MD Work Phone: 1(114)[address]07-28-2025 13:22-0400 Systolic blood oqqudnwl803 mm[Hg]Suraj Liz MD Work Phone: 1(138)[address]04-30-2025 12:50-0400 Body .34 cmSuraj Liz MD Work Phone: 1(046)[address]04-30-2025 12:50-0400 Body mass index (BMI) [Ratio]38.9 kg/t8HuolrpSuraj Liz MD Work Phone: 1(831)[address]04-30-2025 12:50-0400 Body feylry686.55 kgSuraj Liz MD Work Phone: 1(419)[address]04-30-2025 12:50-0400 Diastolic blood mm[Hg]Suraj Liz MD Work Phone: 1(198)[address]04-30-2025 12:50-0400 Heart rate94 /George Liz MD Work Phone: 1(580)[address]04-30-2025 12:50-0400 SaO2% (BldA) [Mass fraction]95 %Suraj Liz MD Work Phone: 1(700)[address] [place], [place] [address]3904-30-2025 12:50-0400 Systolic blood wlbasbpw132 mm[Hg]Suraj Liz MD Work Phone: 1(832)[address] [place], [place] 9453904-24-2025 11:13-0400 Body sijjce721.34 cmSuraj Liz MD Work Phone: 1(658)[address] [place], [place] 945[address]04-24-2025 11:13-0400 Body mass index (BMI) [Ratio]38.2 kg/f0GxczcwSuraj Liz MD Work Phone: 1(999)[address] [place], [place] 9453904-24-2025 11:13-0400 Body jopvtq815.51 kgSuraj Liz MD Work Phone: 1(908)[address] [place], [place] 9453904-24-2025 11:13-0400 Diastolic blood xycqehix47 mm[Hg]Suraj Liz MD Work Phone: 1(488)[address] [place], [place] 9453904-24-2025 11:13-0400 Heart rate83 /George Liz MD Work Phone: 1(990)[address] [place], [place] 9453904-24-2025 11:13-0400 Respiratory rate12 /George Liz MD Work Phone: 1(870)[address] [place], [place] 9453904-24-2025 11:13-0400 SaO2% (BldA) [Mass fraction]98 %Suraj Liz MD Work Phone: [facility]04-24-2025 11:13-0400 Systolic blood btluqdxd739 mm[Hg]Suraj Liz MD Work Phone: [facility]04-23-2025 10:09-0400 Body rafkrp865.3 Fritz Romo MD Work Phone: 1(979)[address]04-23-2025 10:09-0400Body mass index (BMI) [Ratio]37.52 kg/a0KnlmoLaz Romo MD Work Phone: 1(500)[address]04-23-2025 10:09-0400Body .02 kgLaz Romo MD Work Phone: 1(287)[address]04-23-2025 10:09-0400Diastolic blood mzmfbemy52 mm[Hg]Laz Romo MD Work Phone: 1(989)[address]04-23-2025 10:09-0400Heart rate83 /min Laz Romo MD Work Phone: 1(253)814-[address] [place], [place] [address]Buqycoiwgb81-90-1054 10:09-0400Respiratory rate18 /minLaz Romo MD Work Phone: 1(476)669-[address] [place], [place] [address]Ntcdwlqqlm75-62-1411 10:09-4624KyH4% (BldA) [Mass fraction]97 %Laz Romo MD Work Phone: 1(754)709-[address] [place], [place] [address]Kfkceotqsx57-12-5373 10:09-0400Systolic blood lgogywdd052 mm[Hg]Laz Romo MD Work Phone: 1(688)025-[address] [place], [place] [address]Ilyqiwznhq32-95-8117 09:00-0400Hourly Rounding Mbanefo OJUKWU [facility]03-19-2025 09:00-0400 Promise to ReturnMbanefo OJUKWU [facility]03-19-2025 08:07-0400Heart rate80 /minMbanefo OJUKWU [address] [place], [place] 4355603-19-2025 08:07-0678KdI7% (BldA) [Mass fraction]96 %Mbanefo OJUKWU [address] [place], [place] 4355603-19-2025 08:03-0400Body aepqaenvqlx25.06 [degF]Mbanefo OJUKWU [address] [place], [place] 4355603-19-2025 08:03-0400Blood Pressure LocationMbanefo OJUKWU [address] [place], [place] 4355603-19-2025 08:03-0400 Diastolic blood sgpjoudb99 mm[Hg]Mbanefo OJUKWU [address] [place], [place] 4355603-19-2025 08:03-0400Mean blood epqwuzct07 mm[Hg]Mbanefo OJUKWU [address] [place], [place] 4355603-19-2025 08:03-0400 Systolic blood eeonbsqs951 mm[Hg]Mbanefo OJUKWU [address] [place], [place] 4355603-19-2025 08:00-0400 Hourly RoundingMbanefo OJUKWU [address] [place], [place] 4355603-19-2025 08:00-0400 Promise to ReturnMbanefo OJUKWU [address] [place], [place] 4355603-19-2025 07:00-0400 Promise to ReturnMbanefo OJUKWU [address] [place], [place] 4355603-19-2025 04:00-0400Body mqnooiecrsx42.52 [degF]Mbanefo OJUKWU [address] [place], [place] 4355603-19-2025 04:00-0400 Diastolic blood suqvwyin59 mm[Hg]Mbanefo OJUKWU [address]03-19-2025 04:00-0400Heart rate81 /minMbanefo OJUKWU [address] [place], [place] 4355603-19-2025 04:00-0400Mean blood haacuexn09 mm[Hg]Mbanefo OJUKWU [address] [place], [place] 4355603-19-2025 04:00-0400 Respiratory rate18 /minMbanefo OJUKWU [address] [place], [place] 4355603-19-2025 04:00-3717LeL4% (BldA) [Mass fraction]95 %Mbanefo OJUKWU [address] [place], [place] 4355603-19-2025 04:00-0400 Systolic blood utgcobfd982 mm[Hg]Mbanefo OJUKWU [address] [place], [place] 4355603-19-2025 01:30-0400Blood Pressure LocationMbanefo OJUKWU [address] [place], [place] 4355603-19-2025 01:30-0400Body afmvswniiuw48.7 [degF]Mbanefo OJUKWU [address] [place], [place] 4355603-19-2025 01:30-0400 Diastolic blood pariiebd50 mm[Hg]Mbanefo OJUKWU [address] [place], [place] 4355603-19-2025 01:30-0400Heart rate87 /minMbanefo OJUKWU [address] [place], [place] 4355603-19-2025 01:30-0400Mean blood icfeosku54 mm[Hg]Mbanefo OJUKWU [address] [place], [place] 4355603-19-2025 01:30-0400 Respiratory rate18 /minMbanefo OJUKWU [address] [place], [place] 4355603-19-2025 01:30-7315HgF4% (BldA) [Mass fraction]95 %Mbanefo OJUKWU [address] [place], [place] 4355603-19-2025 01:30-0400 Systolic blood mm[Hg]Mbanefo OJUKWU [address] [place], [place] 4355603-18-2025 21:00-0400gluc 135 mg/dLMbanefo OJUKWU [address] [place], [place] 4355603-18-2025 20:17-0400 Respiratory rate18 /minMbanefo OJUKWU [address] [place], [place] 4355603-18-2025 20:09-0400Mean blood hzwpceuf065 mm[Hg]Mbanefo OJUKWU [address] [place], [place] 4355603-18-2025 16:30-0400Mean blood mm[Hg]Mbanefo OJUKWU [address] [place], [place] 4355603-18-2025 06:29-0400Body gbrjhpwaifu42.06 [degF]Mbanefo OJUKWU [address] [place], [place] 4355603-17-2025 23:36-0400Body nkdmkkdwjda32.7 [degF]Mbanefo OJUKWU [address] [place], [place] 4355603-16-2025 00:00-0400Body kmsroktdnat54.7 [degF]Mbanefo OJUKWU [address] [place], [place] 4355603-16-2025 00:00-0400Mean blood sominwcd40 mm[Hg]Mbanefo OJUKWU [address] [place], [place] 4355603-15-2025 19:00-0400gluc 235 mg/dLMbanefo OJUKWU [address] [place], [place] [address]Comment on above:Result Comment: Amalia MIKE dykrn01-97-5128 16:01-0400Heart rate64 /minMbanefo OJUKWU [address]03-15-2025 15:11-0400 Respiratory rate18 /minMbanefo OJUKWU [address] [place], [place] 4355603-15-2025 14:31-0400 Respiratory rate18 /minMbanefo OJUKWU [address] [place], [place] 4355603-15-2025 14:03-0400 Respiratory rate18 /minMbanefo OJUKWU [address]03-15-2025 12:31-0400Heart rate67 /minMbanefo OJUKWU [address]03-15-2025 09:33-0400 Diastolic blood mm[Hg]Suraj Liz MD Work Phone: 1(964)543-38[facility]03-15-2025 09:33-0400 Heart rate67 /George Liz MD Work Phone: 1(248)711-47[facility]03-15-2025 09:33-0400 Respiratory rate20 /George Liz MD Work Phone: 1(790)580-53[facility]03-15-2025 09:33-0400 SaO2% (BldA) [Mass fraction]100 %Suraj Liz MD Work Phone: [facility]03-15-2025 09:33-0400 Systolic blood whhocfwm961 mm[Hg]Suraj Liz MD Work Phone: 1(417)923-95[facility]03-15-2025 07:24-0400 Body ligucxatbwr22.8 [degF]Suraj Liz MD Work Phone: 1(392)848-[address] [place], [place] 6270703-15-2025 07:21-0400 Body wgyque947.34 cmSuraj Liz MD Work Phone: 1(725)[address] [place], [place] 9453903-15-2025 07:21-0400 Body uvdmqq772.92 kgSuraj Liz MD Work Phone: 1(068)[address] [place], [place] 9453903-05-2025 10:35-0500 Body izyeai343.8 cmSuraj Liz MD Work Phone: 1(828)[address] [place], [place] 9453903-05-2025 10:35-0500 Body mass index (BMI) [Ratio]40.4 kg/m5FstydaSuraj Liz MD Work Phone: 1(392)[address] [place], [place] 9453903-05-2025 10:35-0500 Body larndc281.91 kgSuraj Liz MD Work Phone: 1(902)[address] [place], [place] 9453903-05-2025 10:35-0500 Diastolic blood jlsiwcgw97 mm[Hg]Suraj Liz MD Work Phone: 1(629)[address] [place], [place] 9453903-05-2025 10:35-0500 Heart rate77 /George Liz MD Work Phone: 1(702)[address] [place], [place] 9453903-05-2025 10:35-0500 Respiratory rate12 /George Liz MD Work Phone: 1(176)[address] [place], [place] 9453903-05-2025 10:35-0500 SaO2% (BldA) [Mass fraction]99 %Suraj Liz MD Work Phone: 1(014)[address] [place], [place] 9453903-05-2025 10:35-0500 Systolic blood sfakawst111 mm[Hg]Suraj Liz MD Work Phone: 1(894)[address] [place], [place] 9453902-25-2025 13:24-0500 Body atdczx828.8 cmSuraj Liz MD Work Phone: 1(784)[address] [place], [place] 9453902-25-2025 13:24-0500 Body mass index (BMI) [Ratio]40.7 kg/a8KqbtlmSuraj Liz MD Work Phone: 1(419)483-[address] [place], [place] 6270702-25-2025 13:24-0500 Body .82 kgSuraj Liz MD Work Phone: 1(996)184-[address] [place], [place] 6270702-25-2025 13:24-0500 Diastolic blood umgsulzx61 mm[Hg]Suraj Liz MD Work Phone: 1(314)019-[address] [place], [place] 6270702-25-2025 13:24-0500 Heart rate82 /George Liz MD Work Phone: 1(577)529-[address] [place], [place] 6270702-25-2025 13:24-0500 Respiratory rate12 /George Liz MD Work Phone: 1(577)[address]857 [address]02-25-2025 13:24-0500 Systolic blood eiqxngwv869 mm[Hg]Suraj Liz MD Work Phone: 1(464)39[address]11-25-2024 15:48-0500 Body .8 cmAnthony Rusher DPM Work Phone: 1(328)[address] [place], [place] 0267011-25-2024 15:48-0500Body mass index (BMI) [Ratio]26.69 kg/m6Vsyxdev Rusher DPM Work Phone: 1(000)[address] [place] [address]-25-2024 15:48-0500Body ehzaox76.37 kgAnthony Rusher DPM Work Phone: 1(505)[address] [place], [place] 0267010-28-2024 14:36-0400Body xfimxl947.3 cmAnthony Rusher DPM Work Phone: 1(587)[address] [place] [address]-28-2024 14:36-0400Body mass index (BMI) [Ratio]24.41 kg/v5Ybfkerl Rusher DPM Work Phone: 1(870)[address] [place] [address]-28-2024 14:36-0400Body flabca22.38 kgAnthony Rusher DPM Work Phone: 1(347)[address] [place], [place] 0267010-25-2024 14:38-0400Body ffossc005.8 cmMD Suraj Liz Work Phone: 1(439)712-34[facility]10-25-2024 14:38-0400 Body mass index (BMI) [Ratio]41.3 kg/m2MD Suraj Liz Work Phone: 1(096)[address]057 [address]10-25-2024 14:38-0400 Body isfqph491.63 kgMD Suraj Liz Work Phone: 1(452)[address]57 [address]10-25-2024 14:38-0400 Diastolic blood xycwbbrk02 mm[Hg]MD Suraj Liz Work Phone: 1(499)05457 [address]10-25-2024 14:38-0400 Heart rate89 /minMD Suraj Liz Work Phone: 1(042)[address] [place], [place] 9453910-25-2024 14:38-0400 Systolic blood jisvnopq254 mm[Hg]MD Suraj Liz Work Phone: 1(607)[address] [place], [place] 9453910-23-2024 15:22-0400 Body .8 cmMD Suraj Liz Work Phone: 1(163)[address] [place], [place] 9453910-23-2024 15:22-0400 Body mass index (BMI) [Ratio]40.6 kg/m2MD Suraj Liz Work Phone: 1(047)[address] [place], [place] 9453910-23-2024 15:22-0400 Body tbsryh776.36 kgMD Suraj Liz Work Phone: 1(561)[address] [place], [place] 9453910-23-2024 15:22-0400 Diastolic blood tyllwglz68 mm[Hg]MD Suraj Liz Work Phone: 1(578)[address]157 [address]10-23-2024 15:22-0400 Heart rate87 /minMD Suraj Liz Work Phone: 1(956)[address] [place], [place] 9453910-23-2024 15:22-0400 SaO2% (BldA) [Mass fraction]97 %MD Suraj Liz Work Phone: 1(647)[address]557 [address]10-23-2024 15:22-0400 Systolic blood pntytima656 mm[Hg]MD Suraj Liz Work Phone: 1(579)[address]08-20-2024 11:44-0400 Body kannlx337.8 cmMD Suraj Liz Work Phone: [facility]08-20-2024 11:44-0400 Body mass index (BMI) [Ratio]41.1 kg/m2MD Suraj Liz Work Phone: [facility]08-20-2024 11:44-0400 Body yfynoo643.18 kgMD Suraj Liz Work Phone: [facility]08-20-2024 11:44-0400 Diastolic blood xnrrjukc28 mm[Hg]MD Suraj Liz Work Phone: [facility]08-20-2024 11:44-0400 Heart rate84 /minMD Suraj Liz Work Phone: [facility]08-20-2024 11:44-0400 Systolic blood tpeygnga883 mm[Hg]MD Suraj Liz Work Phone: [facility]06-05-2024 15:22-0400 Body cpkmdi259.8 cmKind[facility]06-05-2024 15:22-0400Body mass index (BMI) [Ratio]42.2 kg/d3HbgwzqjnnKindred Hospital [facility]06-05-2024 15:22-0400Body .35 kgKindred [facility]06-05-2024 15:22-0400Diastolic blood hxmayfzt42 mm[Hg][facility] 10-14-2023 15:22-0400Heart rate79 /minKindred [facility] 10-14-2023 15:22-2023MkA6% (BldA) [Mass fraction]95 %[facility]06-05-2024 15:22-0400Systolic blood gsogczps962 mm[Hg][facility]04-04-2024 09:28-0400Body rxijdm333.8 cmMD Suraj Liz Work Phone: [facility]04-04-2024 09:28-0400 Body mass index (BMI) [Ratio]43.2 kg/m2MD Suraj Liz Work Phone: [facility]04-04-2024 09:28-0400 Body jslbze078.75 kgMD Suraj Liz Work Phone: [facility]04-04-2024 09:28-0400 Diastolic blood mmpowpjf55 mm[Hg]MD Suraj Liz Work Phone: [facility]04-04-2024 09:28-0400 Heart rate71 /minMD Suraj Liz Work Phone: [facility]04-04-2024 09:28-0400 Systolic blood odcobszl392 mm[Hg]MD Suraj Liz Work Phone: [facility]02-02-2024 13:30-0500 Body layiae004.8 cmSuraj Liz Other [facility]02-02-2024 13:30-0500 Body mass index (BMI) [Ratio]43.33 kg/n8VgrzlmSuraj Liz Other [employer] Other 02-02-2024 13:30-0500Body kurvdw674.99 kgSuraj Liz Other [facility] [employer] Other 02-02-2024 13:30-0500Body comarh848.98 kgMD Suraj Liz Work Phone: [facility]02-02-2024 13:30-0500 Diastolic blood ocdfkfmo39 mm[Hg]Suraj Liz Other [facility]02-02-2024 13:30-0500 Systolic blood vyhdadim337 mm[Hg]Suraj Liz Other [facility]01-02-2024 15:45-0500 Body vyzitd123.8 cmSuraj iLz Other [employer] Other 01-02-2024 15:45-0500Body mass index (BMI) [Ratio] 42.75 kg/h0Igowgc Shalonda Other [employer] Other 01-02-2024 15:45-0500Body ygvljj286.17 kgSuraj Shalonda Other [employer] Other 01-02-2024 15:45-0500Diastolic blood ewfnzhtc38 mm[Hg] Suraj Shalonda Other [facility] [employer] Other 01-02-2024 15:45-0500Respiratory rate16 /minSharmingeorge Liz Other [facility] [employer] Other 01-02-2024 15:45-0500Systolic blood zanacebm248 mm[Hg] Suraj Shalonda Other [facility] [employer] Other [id number] 15:46-0400Body kswewodgvfn77.06 [degF]Derrick Benson [facility] [place]10-19-2023 15:46-0400 Diastolic blood mm[Hg]Derrick Benson [facility]10-19-2023 15:46-0400Heart rate89 /minDerrick Benson [facility]10-19-2023 15:46-0400 Respiratory rate18 /minDerrick Benson [facility]10-19-2023 15:46-8461VmE0% (BldA) [Mass fraction]96 %Derrick Benson [facility]10-19-2023 15:46-0400 Systolic blood whbiqvju680 mm[Hg]Derrick Benson [facility] [place]09-19-2023 13:00-0400Body .8 cmSuraj Liz Other [place] [employer] Other 09-19-2023 13:00-0400Body mass index (BMI) [Ratio] 42.32 kg/f6KtyfuiSuraj Liz Other [facility] [employer] Other 09-19-2023 13:00-0400Body opdtkl592.81 kgSuraj Liz Other [place] [employer] Other 09-19-2023 13:00-0400Diastolic blood wychxusy64 mm[Hg] Suraj Shalonda Other [place] [employer] Other 09-19-2023 13:00-0400Systolic blood pirhwfwy140 mm[Hg] Surajcarrie Liz Other [place] [employer] Other 09-07-2023 11:16-0400Hourly RoundingWilliam Paster [facility]09-07-2023 11:16-0400 Promise to ReturnWilliam Paster [facility]09-07-2023 10:00-0400 Hourly RoundingWilliam Paster [facility]09-07-2023 10:00-0400 Promise to ReturnWilliam Paster [facility]09-07-2023 09:00-0400 Hourly RoundingWilliam Paster [facility]09-07-2023 09:00-0400 Promise to ReturnWilliam Paster [facility]09-07-2023 08:30-0400 Diastolic blood higsozzm21 mm[Hg]Octavio Paster [address] [place], [place] [id number] 08:30-0400Mean blood dgxviwrb97 mm[Hg]Octavio Paster [address] [place], [place] [id number] 08:30-0400 Systolic blood ofweqxwe201 mm[Hg]Octavio Paster [address] [place], [place] [id number] 08:08-5550QjS5% (BldA) [Mass fraction]97 %Octavio Paster [address] [place], [place] [id number] 07:40-0400Heart rate76 /minWilliam Paster [address] [place], [place] [id number] 07:40-8207QeK2% (BldA) [Mass fraction]99 %Octavio Paster [address] [place], [place] [id number] 07:40-0400 Respiratory rate18 /minWilliam Paster [address] [place], [place] 4513509-07-2023 07:40-0400Body cpauveftwmd50.52 [degF]Octavio Paster [address] [place], [place] 4513509-07-2023 07:39-0400 Diastolic blood mm[Hg]Octavio Paster [address] [place], [place] 4513509-07-2023 07:39-0400Mean blood euixlxyo03 mm[Hg]Octavio Paster [address] [place], [place] 4513509-07-2023 07:39-0400 Systolic blood dzayemlm872 mm[Hg]Octavio Paster [address] [place], [place] 4513509-07-2023 03:06-0400Heart rate82 /minWilliam Paster [address] [place], [place] 4513509-07-2023 03:06-8032ThB9% (BldA) [Mass fraction]97 %Octavio Paster [address] [place], [place] 4513509-07-2023 03:06-0400 Diastolic blood mm[Hg]Octavio Paster [address] [place], [place] 4513509-07-2023 03:06-0400Mean blood gfryxkfo277 mm[Hg]Octavio Paster [address] [place], [place] 4513509-07-2023 03:06-0400 Systolic blood ocxpeabd223 mm[Hg]Octavio Paster [address] [place], [place] 4513509-07-2023 03:06-0400Body ooelhgtvfih19.7 [degF]Octavio Paster [address] [place], [place] 4513509-07-2023 03:06-0400Blood Pressure LocationWilliam Paster [address] [place], [place] 4513509-07-2023 03:06-0400Mean blood ymvtltxp079 mm[Hg]Octavio Paster [address] [place], [place] 4513509-07-2023 03:06-0400 Respiratory rate18 /minWilliam Paster [address] [place], [place] 4513509-07-2023 00:39-0400Heart rate77 /minWilliam Paster [address] [place], [place] 4513509-07-2023 00:00-0400Blood Pressure LocationWilliam Paster [address] [place], [place] 4513509-07-2023 00:00-0400Body guuhcfwfdhk36.88 [degF]Octavio Paster [address] [place], [place] 4513509-07-2023 00:00-0400Mean blood qwjevoxs714 mm[Hg]Octavio Paster [address] [place], [place] 4513509-06-2023 21:36-0400gluc 174 mg/dLWilliam Paster [address] [place], [place] 4513509-06-2023 19:47-0400Mean blood jovwsmxv320 mm[Hg]Octavio Paster [address] [place], [place] 3420109-06-2023 00:32-0400Body xxwlufbwgeo67.52 [degF]Octavio Paster [address] [place], [place] 3420109-06-2023 00:32-0400Heart rate68 /minWilliam Paster [address] [place], [place] 3420109-06-2023 00:32-0400 Respiratory rate18 /minWilliam Paster [address] [place], [place] 4513509-05-2023 17:25-0400gluc 169 mg/dLWilliam Paster [address] [place], [place] 3420109-05-2023 12:00-0400gluc 240 mg/dLWilliam Paster [address] [place], [place] 3420109-05-2023 07:58-0400Body qqbfuxxiedg15.34 [degF]Octavio Paster [address]09-04-2023 16:11-0400Blood Pressure LocationWilliam Paster [address]09-03-2023 17:55-0400 Respiratory rate16 /minWilliam Paster [address] [place], [place] 3420109-03-2023 08:00-0400 Respiratory rate18 /minWilliam Paster [address] [place], [place] 3420109-02-2023 17:21-0400Heart rate68 /minWilliam Paster [address] [place], [place] 3420109-02-2023 12:16-0400Heart rate80 /minWilliam Paster [address] [place], [place] 3420107-19-2023 11:30-0400Body qxjzyw830.8 cmMarcia Liz Other [employer] Other 07-19-2023 11:30-0400Body mass index (BMI) [Ratio] 43.76 kg/a2Xiogxk Shalonda Other [employer] Other 07-19-2023 11:30-0400Body ihnbln147.35 kgSuraj Shalonda Other [employer] Other 07-19-2023 11:30-0400Diastolic blood goitkfzz05 mm[Hg] Suraj Liz Other [employer] Other 07-19-2023 11:30-0400Systolic blood dxixvpij849 mm[Hg] Suraj Liz Other [employer] Other 06-30-2023 13:45-0400Body .8 cmSuraj Shalonda Other [employer] Other 06-30-2023 13:45-0400Body mass index (BMI) [Ratio] 45.05 kg/h2Mgbmsl Shalonda Other [employer] Other 06-30-2023 13:45-0400Body otniti288.43 kgSuraj Shalonda Other [employer] Other 06-30-2023 13:45-0400Diastolic blood lfzldzpe43 mm[Hg] Suraj Liz Other [employer] Other 06-30-2023 13:45-0400Systolic blood rgqogdif099 mm[Hg] Suraj Liz Other [employer] Other 04-10-2023 18:36-0400[facility] 18:36-0400[facility]2023 17:36-0400[facility]-2023 17:36-0400[facility]Tri[facility]04-10-2023 16:16-0400[facility]-2023 16:16-0400[facility]Tri[facility]04-10-2023 15:00-0400[facility]20[facility] 15:00-0400Diastolic blood xymyhdgy42 mm[Hg][facility]04-10-2023 15:00-0400Heart rate77 /[facility]04-10-20[facility] 15:00-0400Respiratory rate16 /[facility]04-10-2023 15:00-0400 Systolic blood nvvagqfa561 mm[Hg][facility] 08-18-2022 12:59-0400Heart rate79 /[facility] 08-18-2022 12:59-8011HkW7% (BldA) [Mass fraction]97 %[facility]04-10-2023 12:58-0400Diastolic blood zryvnhrr48 mm[Hg][facility]04-10-2023 12:58-0400Mean blood ijvhztch89 mm[Hg] [facility]04-10-2023 12:58-0400Systolic blood utrjposx511 mm[Hg][facility]04-10-2023 12:58-0400 Body zzpuqcaizcf34.34 [degF][facility]04-10-2023 10:00-0400Body imigpeopwqa97.7 [degF][facility] 08-18-2022 10:00-0400Diastolic blood mm[Hg][facility]04-10-2023 10:00-0400Heart rate70 /minTri[facility]04-10-2023 10:00-0400Respiratory rate18 /minTri[facility]04-10-2023 10:00-0033NiL0% (BldA) [Mass fraction]95 %[facility]04-10-2023 10:00-0400Systolic blood pressure 118 mm[Hg][facility]04-10-2023 08:00-0400Body lasjosctpll15.54 [degF][facility]04-09-2023 23:50-0400Body tsdyfncruxe22.06 [degF][facility] 08-17-2022 23:50-0400Mean blood guwgnrps87 mm[Hg][facility]04-09-2023 20:30-0400Body jopmcskjnpe64.42 [degF][facility]04-09-2023 20:30-0400Mean blood hhajnfoq976 mm[Hg] [facility]04-09-2023 16:13-0400Mean blood gcvutkiq215 mm[Hg][facility]04-09-2023 14:00-0400 Mean blood ihmqnbdk931 mm[Hg][facility]04-09-2023 11:32-0400Mean blood mm[Hg][facility] 08-14-2022 21:12-9184mmbn348 mg/dLTri[facility] 08-14-2022 18:14-3581rdxc041 mg/dLTri[facility] 08-14-2022 13:43-0400Body .52 [degF][facility]04-06-2023 13:08-0400Body tdwkfpbrubz17.7 [degF][facility]04-06-2023 13:08-0400Respiratory rate17 /[facility]04-06-2023 13:05-0400Respiratory rate15 /minTri[facility]04-06-2023 12:50-0400Respiratory rate14 /min [facility]04-05-2023 16:15-0400Heart rate82 /min [facility]04-05-2023 09:16-0400Heart rate84 /min [facility]03-29-2023 16:45-0400Body qulfye277.8 cmChrjoann Hernnadez Other [employer] Other 03-29-2023 16:45-0400Body mass index (BMI) [Ratio] 43.04 kg/h5Zilzndicpcv Mary Other [employer] Other 03-29-2023 16:45-0400Body haydqn970.08 kgChristopher Mary Other [employer] Other 03-29-2023 16:45-0400Diastolic blood osnkeame11 mm[Hg] Jeb Hernandez Other [employer] Other 03-29-2023 16:45-4355KkI5% (BldA) [Mass fraction]99 % Jeb Hernandez Other [employer] Other 03-29-2023 16:45-0400Systolic blood rvqxicae268 mm[Hg] Binhmatthew Crandallno Other [employer] Other 03-16-2023 14:15-0400Body mxjrwe652.8 cmMichael Blank Other [facility] [employer] Other 03-16-2023 14:15-0400Body mass index (BMI) [Ratio] 39.02 kg/k1Uhrjgzc Blank Other [employer] Other 03-16-2023 14:15-0400Body yoxxrrkeezu54.5 [degF] Ronaldo Arcos Other [facility] [employer] Other 03-16-2023 14:15-0400Body vjylbt541.38 kgMichael Blank Other [employer] Other 03-16-2023 14:15-0400Diastolic blood atstrvho59 mm[Hg] Ronaldo Arcos Other [employer] Other 03-16-2023 14:15-0400Systolic blood mm[Hg] Ronaldo Arcos Other [employer] Other 02-21-2023 14:47-0500Diastolic blood mm[Hg] Mark Vela [facility]02-21-2023 14:47-0500Heart rate77 /Ingris Vela [facility]02-21-2023 14:47-0500Mean blood umiuuhaj48 mm[Hg]Mark Vela [facility]02-21-2023 14:47-0500 Respiratory rate16 /minMark eVla [facility]02-21-2023 14:47-8708OoU7% (BldA) [Mass fraction]97 %Mark Vela [address] [place], [place] 3071002-21-2023 14:47-0500 Systolic blood rgbvyczf979 mm[Hg]Mark Vela [address] [place], [place] 3071002-21-2023 14:00-0500 Diastolic blood mm[Hg]Mark Vela [facility]02-21-2023 14:00-0500Heart rate79 /minMark Vela [address] [place], [place] 3071002-21-2023 14:00-0500 Hourly RoundingJomildred Vela [facility]02-21-2023 14:00-0500Mean blood fehbvdhp128 mm[Hg]Mark Vela [facility]02-21-2023 14:00-0500 Systolic blood acjimzji045 mm[Hg]Mark Vela [facility]02-21-2023 13:00-0500 Diastolic blood bekjfhox73 mm[Hg]Mark Vela [address] [place], [place] 3071002-21-2023 13:00-0500Heart rate80 /minMark Vela [address] [place], [place] 3071002-21-2023 13:00-0500 Hourly RoundingJomildred Mirian [facility]02-21-2023 13:00-0500Mean blood qasgddgv736 mm[Hg]Mark Vela [facility]02-21-2023 13:00-0500 Systolic blood szdfdkin450 mm[Hg]Mark Vela [facility]02-21-2023 11:43-0500Body .24 [degF]Mark Vela [facility]02-21-2023 11:43-0500Heart rate81 /minJomildred Vela [facility]02-20-2023 14:00-0500Body kdoiqn384.8 cmSuraj Liz Other [facility] [employer] Other 02-20-2023 14:00-0500Body mass index (BMI) [Ratio] 42.73 kg/b2TapgmgSuraj Liz Other [facility] Other 02-20-2023 14:00-0500Body couzwj427.08 kgSuraj Liz Other [employer] Other 02-20-2023 14:00-0500Diastolic blood pdroawzr08 mm[Hg] Suraj Liz Other [place] [employer] Other 02-20-2023 14:00-7717AnW1% (BldA) [Mass fraction]99 % Suraj Liz Other [employer] Other 02-20-2023 14:00-0500Systolic blood borvryio890 mm[Hg] Suraj Liz Other [employer] Other 02-13-2023 15:45-1833DnE2% (BldA) [Mass fraction]98 % Alaa [facility]02-13-2023 13:01-1624tzou878 mg/dLAlaa [facility]02-13-2023 13:00-0500Hour[facility]ingTri[facility]02-13-2023 13:00-0500Promise to ReturnTri[facility]02-13-2023 12:42-0500[facility]-13-2023 12:42-0500[facility] ReturnTri[facility]02-13-2023 11:21-0500Hourly RoundingTri[facility]02-13-2023 11:21-0500[facility] ReturnTri[facility]02-13-2023 11:00-0500Blood Pressure Location [facility]02-13-2023 11:00-0500Body temperature 97.52 [degF][facility]02-13-2023 11:00-0500 Diastolic blood uozmqgel07 mm[Hg][facility] 06-23-2022 11:00-0500Heart rate95 /minTri[facility] 06-23-2022 11:00-0500Mean blood bfqwcnma89 mm[Hg][facility]02-13-2023 11:00-0500Respiratory rate16 /minTri[facility]02-13-2023 11:00-9629LeB3% (BldA) [Mass fraction]99 %[facility]02-13-2023 11:00-0500Systolic blood pressure 100 mm[Hg][facility]02-13-2023 09:18-8234uqsc577 mg/dLTriHealth [facility]02-13-2023 09:13-0500Diastolic blood yfaofike29 mm[Hg][facility]02-13-2023 09:13-0500Systolic blood chcbsghu564 mm[Hg][facility]02-13-2023 08:40-4931LgG9% (BldA) [Mass fraction]98 %[facility]02-13-2023 08:39-0500Heart rate82 /minTri[facility]02-13-2023 08:39-0500Respiratory rate18 /[facility]02-13-2023 07:00-0500Body pywlfybdsih87.88 [degF] [facility]02-13-2023 07:00-0500Heart rate80 /min [facility]02-13-2023 07:00-0500Mean blood xtedqdie290 mm[Hg][facility]02-13-2023 07:00-0500 Respiratory rate14 /minTri[facility]02-13-2023 00:00-0500Blood Pressure LocationTri[facility] 06-23-2022 00:00-0500Body jgccazpingb03.06 [degF][facility]02-13-2023 00:00-0500Mean blood ftylqrpd97 mm[Hg][facility]02-12-2023 20:34-0500Mean blood fgrjhfea901 mm[Hg] [facility]02-12-2023 20:34-0500Body temperature 97.7 [degF][facility]02-12-2023 17:02-0500Mean blood tkknuowk93 mm[Hg][facility]02-12-2023 17:02-0500Body fekkcqvsvdl46.88 [degF][facility] 06-22-2022 12:16-0500Mean blood puegntvg79 mm[Hg][facility] 12:15-0500Body gewhqwxqyis26.88 [degF][facility]-10-2023 17:00-0500Respiratory rate16 /minNoni [facility]02-10-2023 16:24-0500Body sjzindsmjiv68.88 [degF][facility]-10-2023 16:24-0500Respiratory rate12 /minNoni [facility]02-10-2023 16:10-0500 Respiratory rate13 /[facility]-10-2023 15:42-0500Body hjnvfuaakww75.52 [degF][facility] 06-19-2022 11:41-4433RUF931 %[facility]02-08-2023 18:24-0500Heart rate71 /[facility]Los [facility]02-08-2023 12:54-0500Heart rate87 /[facility]01-27-2023 12:15-0500Body .8 cmSharmingeorge hSalonda Other [place] [employer] Other 01-27-2023 12:15-0500Body mass index (BMI) [Ratio] 42.61 kg/l1AfjgbsSuraj Liz Other [employer] Other 01-27-2023 12:15-0500Body .72 kgSharmingeorge Shalonda Other [employer] Other 01-27-2023 12:15-0500Diastolic blood wsemzlvq44 mm[Hg] Suraj Shalonda Other [employer] Other 01-27-2023 12:15-6674FxU0% (BldA) [Mass fraction]97 % Suraj Shalonda Other [facility] [employer] Other 01-27-2023 12:15-0500Systolic blood mm[Hg] Suraj Shalonda Other [facility] Other [id number] 08:36-0500Diastolic blood xhtmihtf73 mm[Hg] Hasan AMIR [address]12-09-2022 08:36-0500 Systolic blood mlftaxcd847 mm[Hg]Hasan AMIR [address] [place], [place] 4355612-09-2022 08:35-0500 Diastolic blood ztjqiwhv29 mm[Hg]Hasan AMIR [address] [place], [place] 4355612-09-2022 08:35-0500 Systolic blood tfjkymqe282 mm[Hg]Hasan AMIR [address] [place], [place] 4355612-09-2022 08:33-5428QxL4% (BldA) [Mass fraction]96 %Hasan AMIR [address] [place], [place] 4355612-09-2022 08:28-0500Heart rate88 /minHasan AMIR [address] [place], [place] 3071012-09-2022 08:28-0500 Respiratory rate16 /minHasan AMIR [address] [place], [place] 3071012-09-2022 08:12-0500 Hourly RoundingHasan AMIR [address] [place], [place] 3071012-09-2022 08:12-0500 Promise to ReturnHasan AMIR [address] [place], [place] 3071012-09-2022 08:11-0500Blood Pressure LocationHasan AMIR [address] [place], [place] 4355612-09-2022 08:11-0500Body edneckvdlvw18.88 [degF]Hasan AMIR [address] [place], [place] 4355612-09-2022 08:11-0500 BP/Pulse Patient PositionHasan AMIR [address] [place], [place] 4355612-09-2022 08:11-0500 Diastolic blood xveyifes78 mm[Hg]Hasan AMIR [address] [place], [place] 4355612-09-2022 08:11-0500Heart rate89 /minHasan AMIR [address] [place], [place] 4355612-09-2022 08:11-0500Mean blood atrhcqum972 mm[Hg]Hasan AMIR [address] [place], [place] 4355612-09-2022 08:11-0500 Respiratory rate16 /minHasan AMIR [address] [place], [place] 4355612-09-2022 08:11-8944WhB0% (BldA) [Mass fraction]98 %Hasan AMIR [address] [place], [place] 4355612-09-2022 08:11-0500 Systolic blood krtbrwha595 mm[Hg]Hasan AMIR [address] [place], [place] 4355612-09-2022 07:00-0500 Hourly RoundingHasan AMIR [address] [place], [place] 4355612-09-2022 07:00-0500 Promise to ReturnHasan AMIR [address] [place], [place] 4355612-09-2022 06:12-0500 Hourly RoundingHasan AMIR [address] [place], [place] 4355612-09-2022 06:12-0500 Promise to ReturnHasan AMIR [address] [place], [place] 4355612-08-2022 23:45-0500Body abfpiuugabv99.68 [degF]Hasan AMIR [address] [place], [place] 4355612-08-2022 23:45-0500Heart rate97 /minHasan AMIR [address] [place], [place] 4355612-08-2022 23:45-0500Mean blood mm[Hg]Hasan AMIR [address] [place], [place] 4355612-08-2022 23:45-0500 Respiratory rate16 /minHasan AMIR [address] [place], [place] 4355612-08-2022 23:45-4540OoH3% (BldA) [Mass fraction]94 %Hasan AMIR [address] [place], [place] 4355612-08-2022 19:33-0500Body czizvzulsff93.32 [degF]Hasan AMIR [address] [place], [place] 4355612-08-2022 19:33-0500Mean blood trvcyifo93 mm[Hg]Hasan AMIR [address] [place], [place] 4355612-08-2022 17:25-0500Blood Pressure LocationHasan AMIR [address] [place], [place] 4355612-08-2022 17:25-0500Body dnrsyxnbbbu01.88 [degF]Hasan AMIR [address] [place], [place] 4355612-08-2022 17:25-0500 BP/Pulse Patient PositionHasan AMIR [address] [place], [place] 4355612-08-2022 17:25-0500Mean blood atmiuzdr30 mm[Hg]Hasan AMIR [address] [place], [place] 4355612-08-2022 17:25-0500 Respiratory rate18 /minHasan AMIR [address] [place], [place] 4355612-08-2022 12:45-0500Blood Pressure LocationHasan AMIR [address] [place], [place] 4355612-08-2022 12:45-0500 BP/Pulse Patient PositionHasan AMIR [address] [place], [place] 4355612-08-2022 12:45-0500 Respiratory rate18 /minHasan AMIR [address] [place], [place] 4355612-08-2022 08:28-0500 Respiratory rate18 /minHasan AMIR [address] [place], [place] 4355612-07-2022 19:27-0500Body dtwdelmrmjc87.42 [degF]Hasan AMIR [address] [place], [place] 4355612-07-2022 18:30-0500Body fcurmaizcip86.7 [degF]Hasan AMIR [address] [place], [place] 4355612-07-2022 16:40-0500Mean blood piheojma30 mm[Hg]Hasan AMIR [address] [place], [place] 4355612-07-2022 11:56-0500Body pfpxrpwhkgy47.88 [degF]Hasan AMIR [address] [place], [place] 4355612-07-2022 11:56-0500Mean blood psvlnodu24 mm[Hg]Hasan AMIR [address] [place], [place] 4355612-07-2022 07:38-0500Body exqwcmyreqz15.34 [degF]Hasan AMIR [address] [place], [place] 4355612-06-2022 21:16-0500gluc 252 mg/dLHasan AMIR [address] [place], [place] 4355612-06-2022 21:15-0500gluc 252 mg/dLHasan AMIR [address] [place], [place] 4355612-06-2022 17:16-0500gluc 323 mg/dLHasan AMIR [address] [place], [place] 3071012-05-2022 15:50-0500Heart rate69 /minHasan AMIR [address] [place], [place] 4355612-05-2022 15:00-0500Heart rate78 /minHasan AMIR [address] [place], [place] 4355612-05-2022 14:00-0500Heart rate75 /minHasan AMIR [address] [place], [place] 4355607-25-2022 21:32-0400 Hourly RoundingPatrick DEAN [address] [place], [place] 4355607-25-2022 21:13-0400 Diastolic blood ootqjshr82 mm[Hg]Henri LOUISESLIN [address] [place], [place] 4355607-25-2022 21:13-0400 Systolic blood mpjgdyxx872 mm[Hg]Henri LOUISESLIN [address] [place], [place] 4355607-25-2022 21:00-0400 Hourly RoundingPatrick DEAN [address]07-25-2022 21:00-0400 Promise to ReturnPatrick DEAN [address] [place], [place] 3071007-25-2022 20:00-0400 Promise to ReturnPatrick DEAN [address] [place], [place] 3071007-25-2022 19:48-0400Blood Pressure LocationPatrick DEAN [address] [place], [place] 3071007-25-2022 19:48-0400Body dlealdmjbpw28.88 [degF]Henri LOUISESLIN [address] [place], [place] 3071007-25-2022 19:48-0400 BP/Pulse Patient PositionPatrick DEAN [address]07-25-2022 19:48-0400 Diastolic blood hanspcsc33 mm[Hg]Henri CHOUDHURY [address]07-25-2022 19:48-0400Heart rate95 /minPatrick DEAN [address] [place], [place] 4355607-25-2022 19:48-0400Mean blood whsgedlj336 mm[Hg]Henri CHOUDHURY [address] [place], [place] 4355607-25-2022 19:48-0400 Respiratory rate16 /minPatrick DEAN [address] [place], [place] 4355607-25-2022 19:48-2457YaH1% (BldA) [Mass fraction]95 %Henri CHOUDHURY [address] [place], [place] 4355607-25-2022 19:48-0400 Systolic blood mm[Hg]Henri CHOUDHURY [address] [place], [place] 4355607-25-2022 19:00-0400 Promise to ReturnHenri RADFORDLIN [address] [place], [place] 4355607-25-2022 18:56-0400Body ohhekinkyvi18.7 [degF]Henri CHOUDHURY [address] [place], [place] 3071007-25-2022 18:56-0400 Diastolic blood pjbvkgaq30 mm[Hg]Henri CHOUDHURY [address] [place], [place] 3071007-25-2022 18:56-0400Heart rate96 /minPavivek LOUISESLIN [address] [place], [place] 3071007-25-2022 18:56-0400Mean blood ttkkispd019 mm[Hg]Henri CHOUDHURY [address] [place], [place] 3071007-25-2022 18:56-2653YmD3% (BldA) [Mass fraction]96 %Henri CHOUDHURY [address] [place], [place] 3071007-25-2022 18:56-0400 Systolic blood vceaoirt451 mm[Hg]Henri CHOUDHURY [address]07-25-2022 17:49-0400gluc 116 mg/dLPatrick DEAN [address]07-25-2022 12:00-0400Body vmyqgutujim69.24 [degF]Henri CHOUDHURY [address]07-25-2022 12:00-0400Heart rate83 /minPatrick DEAN [address] [place], [place] 3071007-25-2022 12:00-0400 Respiratory rate17 /minPatrick DEAN [address] [place], [place] 3071007-25-2022 12:00-0856VpB0% (BldA) [Mass fraction]98 %Henri CHOUDHURY [address] [place], [place] 3071007-25-2022 11:57-0400gluc 188 mg/dLPatrick DEAN [address] [place], [place] 3071007-25-2022 11:27-0400Mean blood lpnttvus36 mm[Hg]Henri CHOUDHURY [address] [place], [place] 3071007-25-2022 10:00-0400Mean blood mm[Hg]Henri CHOUDHURY [address] [place], [place] 3071007-25-2022 09:17-0400gluc 175 mg/dLPatrick DEAN [address] [place], [place] 3071007-24-2022 00:00-8676YSQ5 90 %Henri CHOUDHURY [facility]07-23-2022 21:12-0400Heart rate96 /minPatrick DEAN [facility]07-23-2022 20:00-0400Heart rate82 /minPatrick DEAN [address] [place], [place] 3071007-23-2022 20:00-0400Mean blood qttufqcy122 mm[Hg]Henri CHOUDHURY [address] [place], [place] 3071007-23-2022 19:00-0400Heart rate86 /minPatrick DEAN [facility]07-23-2022 19:00-0400Mean blood olqdvfjq110 mm[Hg]Henri CHOUDHURY [address] [place], [place] 3071007-23-2022 19:00-0400 Respiratory rate20 /minPatrick DEAN [facility] [place]07-23-2022 18:42-0400 Respiratory rate18 /minPatrick DEAN [address] [place], [place] 3071002-16-2022 16:15-0500Body tafbln401.34 cmChrjoann Hernandez Other [employer] Other 02-16-2022 16:15-0500Body mass index (BMI) [Ratio] 40.58 kg/q5Ikvwsbxwcnn Mary Other [place] [employer] Other 02-16-2022 16:15-0500Body bbjlrzbbtec70 [degF] Jeb Dubondano Other [facility] [employer] Other 02-16-2022 16:15-0500Body vxyteb366 kgChristopher Mary Other [place] [employer] Other 02-16-2022 16:15-0500Diastolic blood mm[Hg] Jeb Hernandez Other [place] [employer] Other 02-16-2022 16:15-7511BvK6% (BldA) [Mass fraction]99 % Jeb Hernandez Other [place] [employer] Other 02-16-2022 16:15-0500Systolic blood bzjwjanj786 mm[Hg] Jeb Hernandez Other [employer] Other Encounters Encounter DateEncounter TypeCare ProviderFacilityStart: 85-94-4064vhhwasvaunjeanmarie LizFacility:[facility] Company[facility]art: 03-08-2025 End: 83-88-8337cfwftmgwhhAuhfyn E Braun MD Work Phone: [phone]-Islwnsojr Sleep LabStart: 03-08-2025 End: 89-50-4107Tcmzmap encounter procedureJeb Hernandez MD-[facility] Work Phone: Start: 57-29-7496Kn[place]chkee RecurringEhab A [facility] - O/P Work Phone: Start: 02-27-2025 End: 01-53-8658quctctgxpiDXXK [facility]: 02-08-2025 End: 11-82-8211atoruevxxoCpbjal E Braun MD Work Phone: [facility] Work Phone: Start: 02-08-2025 End: 22-44-3435Wgsopaq encounter Anthony Liz MD-[facility] Work Phone: Start: 26-09-5880Lad-patient / Non-visitCatgiulia Benson CMA-[facility] Work Phone: Start: 48-88-1477Dtn-patient / Non-visitMiccarlos Arcos MD-[facility] Professional [facility] Work Phone: Start: 01-02-2025 End: 32-31-7527Wekhiiyrll and management of inpatientMD Alejandro Wilson Facility:[facility]MCStart: 58-98-8990Rmakcmzkv department patient visitJomildred Vela Facility:FTMCStart: 12-29-2024 End: 48-12-2043Dqyxirubkm Adiel Barr MD-Infusion Therapy - O/P Work Phone: Start: 12-29-2024 End: 93-41-9766vksaxcmmfwBylrup E Braun MD Work Phone: [facility] Work Phone: Start: 12-28-2024 End: 96-07-2201Ztjlep Sachi Romo MD Work Phone: [facility] EndocrinologyStart: 12-28-2024 End: 92-92-2554Hhrkzxderik Romo MD Work Phone: [facility] EndocrinologyStart: 12-28-2024 End: 13-96-5624Spmmgg outpatient visit 25 minutesLaz Romo MD Work Phone: [facility] EndocrinologyComment on above:Type 2 diabetes mellitus with hyperglycemia, unspecified whether half-way insulin use (HCC) (Primary Dx); Vitamin D deficiency; Hyperlipemia, mixed ; Encounter for dietary consultation; H/O gastric bypass; Class 2 severe obesity due to excess calories with serious comorbidity and body mass index (BMI) of36.0 to 36.9 in adult ([facility])Start: 12-28-2024 End: 10-82-7908vekpbtnjpkUKVAL F SABBAGHNot AvailableStart: 53-96-3979kqyswpwals JASON [facility]art: 12-05-2024 End: 45-63-9393mimgipeixoLlnlrh E Braun MD Work Phone: [facility] Work Phone: Start: 12-05-2024 End: 51-35-2345Igxcmzt encounter procedureSuraj Liz MD-[facility] Work Phone: Start: 12-01-2024 End: 47-20-2238ysoeojwhrcFCWMIEB [facility]art: 11-30-2024 End: 39-31-6005djwrlekgcqAGH ABUGHARBYEHUniZanesville City Hospital Start: 87-86-9310Dlp-patient / Non-visitCatherine Marcelino [facility] Work Phone: Start: 78-44-3372Umy-patient / Non-visitCatherine Marcelino [facility] Work Phone: Start: 49-16-5055Rcarrtfqbk and management of inpatientMELINDA [facility] Centertart: 11-20-2024 Evaluation and management of inpatientSTEPHANIE SCHWARZUniversity Childress Regional Medical Centertart: 16-68-1057Zrirjkcqjv and management of inpatientSTEPHANIE SCHWARZUniversMercer County Community Hospitaltart: 11-18-2024 End: 82-94-3184Atbwchyzke and management of inpatientSARMED [facility] Hospitaltart: 11-17-2024 End: 36-87-1925wglbyotxnjUGVE [facility] Centertart: 69-29-1639Gmt-patient / Non-visitCatherine Marcelino [employer]-[facility] Work Phone: Start: 24-32-4497Erobnfdnsl and management of inpatientBLAIR GRUBBUniversMercer County Community Hospitaltart: 10-25-2024 Evaluation and management of inpatientAYA THAISFulton County Health Centertart: 10-25-2024 End: 10-30-7818Sjubgrvyxk and management of inpatientHANI SAADUniOhio State Health Systemtart: 10-25-2024 End: 53-53-5865jblykqukcsAXTH [facility] Centertart: 10-05-2024 End: 82-31-6478sjskitapgsIZYIAZJ [facility] Hospitaltart: 89-36-6993Wvs-patient / Non-visitEhab A [facility] Work Phone: Start: 09-07-2024 End: 00-37-6446yojllbvimqEzhlvv E Braun MD Work Phone: [facility] Work Phone: Start: 09-07-2024 End: 47-21-6796Jveehvy encounter procedureSuraj Liz MD Work Phone: [facility] Work Phone: Start: 09-01-2024 End: 31-26-8688nvujuvdpynClqysy E Braun MD Work Phone: [facility] Work Phone: Start: 09-01-2024 End: 38-47-2862Sablagv encounter Anthony Liz MD Work Phone: [facility] Work Phone: Start: 08-31-2024 End: 62-58-2617Hpbmec Sachi Romo MD Work Phone: [facility]oms ENDOCRINOLOGYStart: 08-31-2024 End: 91-88-3472Vlyyhl Sachi Romo MD Work Phone: [facility] ENDOCRINOLOGYStart: 08-31-2024 End: 44-04-9243Turzck outpatient visit 25 minutesLaz Romo MD Work Phone: noms ENDOCRINOLOGYComment on above:Type 2 diabetes mellitus with hyperglycemia, unspecified whether lobsterman insulin use (CMS/HCC) (Primary Dx); Vitamin D deficiency; Hyperlipemia, mixed (CMS/HCC); Encounter for dietary consultation; Class 2 severe obesity due to excess calories with serious comorbidity and body mass index (BMI) of37.0 to 37.9 in adult (CMS/[facility]); H/O gastric bypassStart: 08-31-2024 End: 54-04-8746habkdyyxykQOEXV F SABBAGHNot AvailableStart: 08-24-2024 End: 55-24-4512bsljolhrhrWUU ABUGHARBYEHUniZanesville City Hospital Start: 08-24-2024 End: 71-06-6279fvqtcabremVARTDCZ [facility] Hospitaltart: 08-17-2024 End: 38-01-0070trfhraitfcNZXH KELLISelect Medical [facility], Beachwoodtart: 08-15-2024 End: 50-69-3271rxtftfmdnwBSCNZ [facility] Hospitaltart: 76-94-6684Jeh-patient / Non-visitMargeorge Liz MD Work Phone: [facility] Work Phone: Start: 44-43-9841Zzokxbrkoi and management of inpatientABHISHEK [facility] Memorialtart: 08-01-2024 Evaluation and management of inpatientAMNA [facility] Centertart: 65-63-5893Pegxuszpgf and management of inpatientAMNA [facility] Southtart: 69-68-2431Xfxuooqygj and management of inpatientJASON MYRONBlanchard Valley Health System Bluffton Hospitaltart: 07-28-2024 Evaluation and management of inpatientALLISON [facility] Hospitaltart: 22-22-9390Moclxjpqdm and management of inpatientMUNIER [facility] Hospitaltart: 81-47-7982Gbkalgwxyt and management of inpatientMUNIER TriHealthtart: 07-27-2024 Evaluation and management of inpatientALLISON OVMercy Health Springfield Regional Medical Centertart: 04-75-1765Gqdwhqjnma and management of inpatientALLISON OVITT [facility] Companytart: 07-27-2024 End: 48-84-5684Jcmrjgukjm and management of inpatientAMNA IQAultman Hospitaltart: 07-24-2024 End: 69-52-4039Kavnpwstkk and management of inpatientXXXX [facility] Wound Facility:[facility] CAMPUStart: 94-02-3178akayfgqopnWkvxfue OJUKWUFacility:[facility] CAMPUStart: 45-17-2635Dudouljmw department patient visitAstrit Romaine HatoshiaariFacility:[facility]OTT[facility] CAMPUStart: 07-23-2024 End: 51-46-4000Rpnxvqvmjk and management of inpatientMbmarbin MORAWU [facility] Start: 07-23-2024 End: 81-17-1324Qwnibpidq department patient visitSuraj Liz MD Work Phone: [facility]-Emergency Room Work Phone: Start: 72-69-1281Tgp-patient / Non-visitSuraj Liz MD Work Phone: [facility] Professional [facility] Work Phone: Start: 07-13-2024 End: 38-55-8793cvmainmssuJznugi E Braun MD Work Phone: [facility] Work Phone: Start: 07-13-2024 End: 99-51-7862Krumzwb encounter procedureSuraj Liz MD Work Phone: [facility] Work Phone: Start: 07-12-2024 End: 66-95-6544pudovlmhqcUQOD ELEMMANUELSelect Medical [facility], Beachwoodtart: 07-05-2024 End: 25-53-1008eplbgjhjgfCrgame E Braun MD Work Phone: [facility] Work Phone: Start: 07-05-2024 End: 48-36-8969Eergbin encounter Anthony Liz MD Work Phone: [facility] Work Phone: Start: 43-26-3111Rgi-patient / Non-visitSuraj Liz MD Work Phone: [facility] Work Phone: Start: 06-20-2024 End: 57-64-0209Spdjcabkk encounterLaz Romo MD Work Phone: [facility]ITALStart: 28-41-3370Tsi-patient / Non-visitSuraj Liz MD Work Phone: [facility]State [facility] Professional [facility] Work Phone: Start: 82-95-1530Yxr-patient / Non-visitSuraj Liz MD Work Phone: [facility] Work Phone: Start: 41-64-0220Oxfrrslhpf and management of inpatientKELLILYN RUSHUMemorial Health System Marietta Memorial Hospitaltart: 06-07-2024 Evaluation and management of inpatientOMAR [facility] Hospitaltart: 97-18-0502Kywqstalxg and management of inpatientOMAR [facility]ertart: 06-06-2024 End: 45-43-6003Inqtxuqxxf and management of inpatientHANI SAADUMemorial Health System Marietta Memorial Hospitaltart: 06-06-2024 End: 29-72-8610ydyafjxyfxLTPD [facility] Centertart: 48-26-9741Yur-patient / Non-visitSuraj Liz MD Work Phone: [facility] Work Phone: Start: 64-83-2199Hhm-patient / Non-visitSuraj Liz MD Work Phone: [facility] Professional [facility] Work Phone: Start: 01-88-6379Bac-patient / Non-visitSuraj Liz MD Work Phone: [facility] Work Phone: Start: 63-21-8156Ebd-patient / Non-visitSuraj Liz MD Work Phone: [facility] Work Phone: Start: 61-07-4150Zjg-patient / Non-visitSuraj Liz MD Work Phone: [facility] Work Phone: Start: 72-80-2859Xsu-patient / Non-visitSuraj Liz MD Work Phone: [facility] Professional [facility] Work Phone: Start: 05-27-2024 End: 59-46-5698sqybleatanRgiexo E Braun MD Work Phone: [facility] Work Phone: Start: 05-27-2024 End: 69-84-3218Rywoxnjm Elian Liz MD Work Phone: [facility]-LAB Path Spec Helen HospStart: 31-91-4461Pes-patient / Non-visitSuraj Liz MD Work Phone: [facility] Work Phone: Start: 86-65-8918Bqo-patient / Non-visitSuraj Liz MD Work Phone: [facility] Work Phone: Start: 04-27-2024 End: 61-61-5027yirzdgyeflVWBArmond GardnerZanesville City Hospital Start: 04-27-2024 End: 53-15-0490mqyrkxqyzpVXAW [facility] Centertart: 04-22-2024 End: 84-28-8835Qmqtue Reagan Mcnair DPM Work Phone: [facility] PODIATRYStart: 04-22-2024 End: 41-54-3192Uzjwyw flowsCesar Mcnair DPM Work Phone: [facility] PODIATRYStart: 04-22-2024 End: 57-89-1979Xzymhr follow up visit related to original Riley Mcnair DPM Work Phone: noms PODIATRYComment on above:Type 2 diabetes mellitus with foot ulcer (CODE) (CMS/HCC) (Primary Dx); 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); Diabetic polyneuropathy associated with type 2 diabetes mellitus (CMS/HCC); Equinus contracture of right ankle; Equinus contracture of left ankle; History of amputationStart: 04-22-2024 End: 45-01-5457tkejfyqyxdISXTMOY S RUSHERNot AvailableStart: 04-13-2024 End: 81-10-6457rcegeexkygYXHOU SHAAccess Hospital Daytontart: 04-04-2024 End: 27-93-6126Wsbepj follow up visit related to original Riley Mcnair DPM Work Phone: noms PODIATRYComment on above:Type 2 diabetes mellitus with foot ulcer (CODE) (CMS/HCC) (Primary Dx); 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); Diabetic polyneuropathy associated with type 2 diabetes mellitus (CMS/HCC); Equinus contracture of right ankle; Equinus contracture of left ankle; History of amputationStart: 04-04-2024 End: 79-57-4779pkkhpsfaraKMXQJVK S JENNIFERHERNot AvailableStart: 04-04-2024 End: 76-56-1893Utppop flowsheetAnthony Alexander Mcnair DPM Work Phone: [facility] PODIATRYStart: 04-04-2024 End: 40-33-7962Vrwfms flowsheetAnthony S Joleen DPM Work Phone: [facility] PODIATRYStart: 03-24-2024 End: 36-20-4998xtsjsefqmmJIE ABUGHSelect Medical Specialty [facility] Start: 03-23-2024 End: 80-17-6995Rliakpeqs encounterMark Fields Domenicaalexander HEBERT Work Phone: [facility] - Family MedicineStart: 03-23-2024 End: 72-15-0191kuggqnivfbUHWA [facility] Centertart: 03-14-2024 End: 46-18-8493Rtlpvorrx encounterLaz Romo MD Work Phone: noms ENDOCRINOLOGYComment on above:Medication ProblemStart: 03-07-2024 End: 76-14-3272Qxfxmr outpatient new 30 minutesAnthclaudia Mcnair DPM Work Phone: [facility] PODIATRYComment on above:Diabetic polyneuropathy associated with type 2 diabetes mellitus [...] Equinus contracture of left ankle; History of amputationStart: 03-07-2024 End: 91-62-0962zzdinihdtsFIVEXOJ S RUSHERNot AvailableStart: 03-04-2024 End: 93-88-8899gqcywpfbpcNSMahogany Liz Work Phone: [facility] Work Phone: Start: 03-04-2024 End: 23-31-6715Mzkwgea encounter procedureMD Suraj Liz Work Phone: [facility] Work Phone: Start: 46-77-5635Ymc-patient / Non-visitMD Suraj Liz Work Phone: [facility] Work Phone: Start: 03-02-2024 End: 63-57-4549fevziicysdHO Marcia E Braun Work Phone: [facility] Work Phone: Start: 03-02-2024 End: 71-94-5212Pwhdhgj encounter procedureMD Suraj Liz Work Phone: [facility] Work Phone: Start: 17-75-1629Fzv-patient / Non-visitMD Suraj Liz Work Phone: [facility] Professional [facility] Work Phone: Start: 01-12-2024 End: 72-58-4288Yzwrqspxj encounterNicole Suzanne CMAProMedica Physicians Internal Medicine - Family MedicineStart: 12-29-2023 End: 14-64-6999eulwlnhmqfXK Marcia E Braun Work Phone: [facility] Work Phone: Start: 12-29-2023 End: 46-18-0501Dlwrnzp encounter procedureMD Suraj Liz Work Phone: [facility] Work Phone: Start: 12-28-2023 End: 48-76-1755gtjdnpakvqDS Marcia E Braun Work Phone: [facility] Work Phone: Start: 12-28-2023 End: 19-12-5018Uqckrps encounter procedureMD Suraj Liz Work Phone: [facility] Work Phone: Start: 81-74-2025Pol-patient / Non-visitMD Suraj Shalonda Work Phone: [facility] GroupState [facility] Facility Professional [facility] Work Phone: Start: 11-11-2023 End: 51-54-2574pqppndbvwfYX Suraj Crowley Liz Work Phone: [facility] Work Phone: Start: 11-11-2023 End: 95-91-5656Jmxnpyew ReferredMD Suraj Liz Work Phone: [facility]-LAB Path Spec Dimas HospStart: 46-96-4492Ncg-patient / Non-visitMD Worthington Shalonda Work Phone: [facility]State [facility] Work Phone: Start: 96-46-0370Nkm-patient / Non-visitMD Suraj Shalonda Work Phone: [facility]State [facility] Work Phone: Start: 10-14-2023 End: 42-64-6058ztxsqttbtiLploqepckDayton Children's Hospital Work Phone: Start: 10-14-2023 End: 67-54-6991Nntlctv encounter procedureUnc Health Physician GroupQuincy [facility] Work Phone: Start: 09-09-2023 End: 88-37-6504Jwflqwh encounter procedureUnc Health Physician Group-[facility] Work Phone: Start: 04-92-7180Oxr-patient / Non-visitFirlewisgale hospital alleghany Physician GroupState Mental Health Facility Professional Co Work Phone: Start: 08-13-2023 End: 07-35-3189hedluqbpwvGZ Suraj Crowley Liz Work Phone: [facility] Work Phone: Start: 08-13-2023 End: 55-83-5985Lskyhae encounter procedureMD Suraj Liz Work Phone: [facility] Work Phone: Start: 14-53-8519Sia-patient / Non-visitMD Suraj Liz Work Phone: [facility] Professional [facility] Work Phone: Start: 91-95-2469Xvy-patient / Non-visitMD Suraj Liz Work Phone: [facility] Professional [facility] Work Phone: Start: 06-16-2023 End: 24-26-3247mvzlmttkjwLwnhpy Braun Other [employer]Funder[employer] Other Start: 96-15-2531Xfvcbgvhn encounterMargeorge [facility] Centertart: 06-15-2023 End: 10-16-7747omujicglrsFghtrd Braun Other noFundera Other Start: 08-04-1050Ylusaimpd encounterMargeorge LizMorrow County Hospitaltart: 06-12-2023 End: 27-12-8236bozjdmzgecQiwdyq Braun Other noFundera Other Start: 47-29-6849Spszbu outpatient visit 25 minutes Suraj ShalondaMorrow County Hospitaltart: 06-12-2023 End: 17-63-9376Wrrxbxa encounter procedureMD Suraj Liz Work Phone: [facility]-Start: 06-10-2023 End: 07-03-1728Chbswec encounter procedureSantos Hernandez [facility] Start: 06-09-2023 End: 78-74-6002Uadncjx encounter procedureSelect [facility] [place] Work Phone: Start: 06-09-2023 End: 76-81-1130ahlfewqadtYQT STAFFNort [employer] Other Start: 89-97-4002Afnapglmp encounterMargeorge [facility] Jacksonvilletart: 05-21-2023 End: 09-46-3737kxgkfzyzdeGkbwgd Braun Other [employer]Funder[employer] Other Start: 23-85-8345Chtxgvszn encounterMarcijoaquim Alexander [facility] Planotart: 05-20-2023 End: 67-86-9770Bursmlh encounter procedureBrecksville [facility] Start: 05-12-2023 End: 78-50-2607ildvarsfmpFifrfb Braun Other [employer]Funder[employer] Other Start: 80-34-5006Cszgbj outpatient visit 25 minutes Suraj Benjamin [facility] Planotart: 05-12-2023 End: 27-55-3572Ujjmmfj encounter procedureUnc Health Physician Group-[facility] Work Phone: Start: 05-08-2023 End: 70-22-4526obourjegjfMlphrw Braun Other [employer]Funder[employer] Other Start: 16-26-4558Dmribarhx encounterMarcijoaquim Alexander [facility] Planotart: 04-28-2023 End: 71-91-9507ucysncjwkrTrdjsd Braun Other [employer]Funder[employer] Other Start: 03-63-1972Xapxdwbus encounterMarcijoaquim Alexander [facility] Planotart: 04-23-2023 End: 06-59-9677Oobxhpf encounter procedureOhio [facility]-Lab [facility] Centertart: 04-22-2023 End: 38-55-8083nxpwhfwwmuZtnbyk Braun Other noFundera Other Start: 92-80-0697Bjnuasykp encounterSuraj Alexander [facility] ClinicStart: 04-08-2023 End: 82-00-0602Vxwliwi encounter procedureSantos [facility] Start: 04-01-2023 End: 88-02-8111qmrswjwkelIjzbpi Braun Other [facility] [employer] Other Start: 44-41-5370Sqnpoqssu encounterSuraj Alexander [facility] Planotart: 03-25-2023 End: 09-52-4123Zwknwxu encounter procedureSantos R [facility] Start: 03-03-2023 End: 10-07-9139Ghcyzao encounter procedureMarc D [facility] Start: 03-02-2023 End: 31-10-7142elbssslzneVkfycdh Blank Other [facility] [employer] Other Start: 93-62-7742Sayhtohku encounterMichael BlankFPG Infectious DiseaseStart: 02-26-2023 End: 41-82-7548Kkdinkypr department patient Bruna Benson [facility] Start: 02-13-2023 End: 99-01-1236vfovanzinoJjejkj Braun Other [facility] [employer] Other Start: 90-17-5318Nwapxdr nursing facility care/day 35 minutesMargeorge [facility] ClinicStart: 83-54-8515Qwvobkscf encounter Suraj eJfferson Medical ClinicStart: 02-12-2023 End: 49-30-4981wtonnrdhqaTucbsb Braun Other noFundera Other Start: 67-70-5012Txpecdqdt encounterMarcia AmaliaUnc Health Wayne ClinicStart: 02-05-2023 End: 41-65-5698Fqv Drop offKareejoshua R [facility] Start: 02-04-2023 End: 26-77-7924Lva-admission assessmentMarc D [facility] Start: 01-27-2023 End: 90-67-8847zezgfrfgvuEffkax Shalonda Other [employer] Other Start: 86-60-4939Meamag outpatient visit 15 minutes Suraj LizRadha [facility] ClinicStart: 01-10-2023 End: 42-40-5889Uziigzgjry and management of inpatientWicyanabel Walter [facility] Start: 12-09-2022 End: 38-06-2101ierubywcazHlegwt Shalonda Other [employer] Other Start: 28-57-6483Ibkrndyws encounterMarcia [facility] ClinicStart: 11-26-2022 End: 57-50-4463qwlgfpqgusIzpotr Liz Other [employer] Other Start: 56-79-6700Ijdkmy outpatient visit 15 minutes Suraj [facility] ClinicStart: 11-19-2022 End: 69-88-5401loptnnnfvcTuxfuu Liz Other [employer]Funder[employer] Other Start: 88-47-1391Mmgamnpji encounterMarcia Benjamin [facility] ClinicStart: 11-07-2022 End: 68-27-5152eleifqizedLhyubc Liz Other [employer] Other Start: 18-49-0379Ociseu outpatient visit 15 minutes Suraj Alexander [facility] Planotart: 10-22-2022 End: 55-26-0810Dvjmoez encounter procedureSantos [facility] HospitalemilySelect [facility] Start: 10-16-2022 End: 59-43-0617bvhwhfuyybEtitlk Braun Other [place] [employer] Other Start: 22-57-8001Bxfvucctr encounterMargeorge Alexander [facility] Planotart: 10-14-2022 End: 79-29-2438zxefihxqusZwpvda Braun Other [place] [employer] Other Start: 64-25-3004Xwkozafck encounterMargeorge Alexander [facility] Planotart: 10-10-2022 End: 90-17-4846Qyedena encounter procedureMARGEORGE LIZ [facility] Start: 10-08-2022 End: 94-66-8041Kjlofkj encounter procedureSantos [facility] HospitalemilySelect [facility] Start: 10-07-2022 End: 72-15-5639fpxtslhgvaBmrnzy Braun Other [place] [employer] Other Start: 63-04-0982Ixkruuald encounterMargeorge Alexander [facility] Planotart: 09-03-2022 End: 96-08-6213Dmhnkhb encounter procedureSantos EppersonSelect Medical [facility] [place] Start: 09-02-2022 End: 68-86-6627Xgycufk encounter procedureRobert America HDZ [facility] Start: 08-27-2022 End: 49-45-8095Tuqpyfv encounter procedureSantos [facility] HospitalemilySelect [facility] Start: 08-13-2022 End: 32-95-9000Imrfxwjfpy and management of inpatientAlaa NATANAELFisher-Titus Medical Center Start: 08-13-2022 End: 48-36-2389Cuzabbc encounter procedureSantos [facility] HospitalemilySelect [facility] Start: 08-08-2022 End: 61-85-0536hadpuhnyboSumpye Braun Other [employer] Other Start: 73-30-2313Rlkqbcfiz encounterSuraj LizFPG Referral CoordinatorStart: 08-07-2022 End: 18-38-3441fuuduwxdqhNckzdna Blank Other [facility] [employer] Other Start: 34-27-7863Pqhkpjuex encounterMichael BlankFPG Infectious DiseaseStart: 08-06-2022 End: 57-64-9379lejdjahvwvAsvgcxbfmwl Mary Other [employer]Fl[employer] Other Start: 31-98-9242Pkvnkw outpatient visit 10 minutes Jeb DubonWilson Memorial [facility] SouthStart: 08-06-2022 End: 86-16-8782Ekmrfdr encounter procedureSantos EppersonSelect Medical [facility] Start: 29-81-2560Mhgmdcgji encounterMichael BlankFPG Infectious DiseaseStart: 08-04-2022 End: 92-86-5403xtsxfvfrewUB Suraj Lzi Work Phone: [facility] Work Phone: Start: 08-04-2022 End: 80-59-0670Hzrmmqc encounter procedureMD Suraj Liz Work Phone: [facility]-Lab [facility] Work Phone: Start: 07-31-2022 End: 10-34-0666Mycafbf encounter procedureJennifermildred Zepeda [facility] Start: 07-31-2022 End: 79-26-8748pkvbhebnuxRI Marcia E Braun Work Phone: [facility] Work Phone: Start: 07-31-2022 End: 20-64-8767Spmglptx ReferredMD Suraj Liz Work Phone: [facility]-Lab [facility] Work Phone: Start: 07-30-2022 End: 63-74-7591zmuoshtolsSV Marcia E Braun Work Phone: [facility] Work Phone: Start: 07-30-2022 End: 1681Aeglyurkrt RecurringMD Suraj Liz Work Phone: [facility]-Infusion Therapy - O/P Work Phone: Start: 07-28-2022 End: 00-12-7491lmkmqwszlrJzxadc Braun Other [place] [employer] Other Start: 96-54-6142Ksfewzuhp encounterSuraj Alexander [facility] ClinicStart: 53-62-2124Obbxswglz encounterSuraj Alexander Referral CoordinatorStart: 07-25-2022 End: 61-56-1842hlzhlbyhjlSD Marcia E Braun Work Phone: [facility] Work Phone: Start: 07-25-2022 End: 06-07-0377Ekhgrrl encounter procedureMD Suraj Liz Work Phone: [facility] Work Phone: Start: 07-24-2022 End: 48-93-1473pamdyciywqBqqakpe Blank Other [place] [employer] Other Start: 65-46-1587Udlqvx outpatient visit 25 minutes Ronaldo [facility] Infect[facility] DiseaseStart: 07-23-2022 End: 60-83-0988yzuifggxojBK Marcia E Braun Work Phone: [facility] Work Phone: Start: 07-23-2022 End: 91-98-4707Okcnjal encounter procedureMD Suraj Liz Work Phone: [facility] Work Phone: Start: 07-18-2022 End: 31-81-9388ofyuruetotMV Marcia E Braun Work Phone: [facility] Work Phone: Start: 07-18-2022 End: 30-97-4188Dfjbuwa encounter procedureMD Suraj Liz Work Phone: [facility] Work Phone: Start: 07-14-2022 End: 19-82-2344qgsehmbalhFR Marcia E Braun Work Phone: [facility] Work Phone: Start: 07-14-2022 End: 94-14-3255Iitbsog encounter procedureMD Suraj Liz Work Phone: [facility] Work Phone: Start: 07-11-2022 End: 97-94-0641meigtrjcqtDE Marcia E Braun Work Phone: [facility] Work Phone: Start: 07-11-2022 End: 61-82-7194Tytsahg encounter procedureMD Suraj Liz Work Phone: [facility] Work Phone: Start: 22-81-3593Pjvqqzzrp encounterSuraj Alexander [facility] Plan[employer]art: 07-07-2022 End: 43-76-0381wdafpfkgjiJV Suraj Liz Work Phone: [facility] Work Phone: Start: 07-07-2022 End: 99-53-5871Hwjxkdq encounter procedureMD Suraj Liz Work Phone: [facility] Work Phone: Start: 07-04-2022 End: 01-64-1412gcpruwnwijJA Suraj Liz Work Phone: [facility] Work Phone: Start: 07-04-2022 End: 45-12-5054Ufzxqfb encounter procedureMD Suraj Liz Work Phone: [facility] Work Phone: Start: 07-02-2022 End: 41-30-9970iolwqxhunhNZ Suraj Liz Work Phone: [facility] Work Phone: Start: 07-02-2022 End: 32-14-5056Ipgkdud encounter procedure Suraj Shalonda Work Phone: [facility] Work Phone: Start: 07-01-2022 End: 78-66-1557Psuxqkfzj department patient visitJo Mirian [facility] Start: 06-30-2022 End: 51-69-5161wmuqptkdsyCnlqjz Braun Other [employer] Other Start: 06-17-7788Vmtiqe outpatient visit 15 minutes Suraj Alexander [facility] [employer]art: 06-27-2022 End: 68-66-1226demedwvqfkZJ Suraj Liz Work Phone: [facility] Work Phone: Start: 06-27-2022 End: 66-35-0934Texpdce encounter procedure Suraj Liz Work Phone: [facility] Work Phone: Start: 06-26-2022 End: 74-05-3944xwthnglfdeEtvbwqb Blank Other [employer] Other Start: 63-42-9511Jxmzkhxvq encounterMichael BlankCOLLEENG Infectious DiseaseStart: 06-24-2022 End: 10-06-0618htpdsicvzhZW Suraj Liz Work Phone: [facility] Work Phone: Start: 06-24-2022 End: 33-11-5049Vtiswct encounter procedure Suraj Liz Work Phone: [facility] Work Phone: Start: 06-18-2022 End: 85-62-8073Qlpwghbjch and management of inpatientAlaa THEES[facility] [place] Start: 06-18-2022 End: 09-62-1652Cfbbkkj encounter procedureSantos [facility]Great[facility] Start: 06-17-2022 End: 85-35-9171gvkyysqtcqMhsyka Braun Other [employer] Other Start: 77-14-9166Xrtlhvyuh encounterMarcia [facility] Centertart: 06-10-2022 End: 78-11-4988gcwmeyxrdjDwnygm Braun Other [place] [employer] Other Start: 13-13-0602Ctlkstixw encounterMargeorge Alexander [facility] Planotart: 06-06-2022 End: 12-42-1018vjbolomdseMbsbau Braun Other [place] [employer] Other Start: 74-96-3168Bngnwj outpatient visit 25 minutes Suraj LizMorrow County Hospitaltart: 06-04-2022 End: 58-71-3352Ekmbcem encounter procedureBlanestony [facility] Start: 05-28-2022 End: 12-13-2147Bzaxmxf [facility] Start: 05-21-2022 End: 69-05-0065Eho-admission assessmentKarstony [facility] Start: 05-20-2022 End: 42-91-7677Bzziwjb [facility]Mar[facility] Start: 04-29-2022 End: 24-41-0763Dcanteg encounter procedureMarc D [facility] Start: 04-14-2022 End: 49-58-7357Eumzskyjas and management of inpatientHasan AMIR [facility] Start: 04-08-2022 End: 44-47-4385Ilqriho encounter procedureMD Suraj Liz Work Phone: [facility] Work Phone: Start: 04-01-2022 End: 70-68-2359nvyljnuobtBJ EHAB ELTAHAWYFacility:P0Lpgjj: 03-21-2022 End: 67-55-1078dmkotdmbmpNE Suraj Liz Work Phone: [facility] Work Phone: Start: 03-21-2022 End: 60-06-5743Fwkcucz encounter procedure Suraj Liz Work Phone: [facility]Start: 02-10-2022 End: 06-21-8963fetecamxfsBahpsp Debora Other [employer] Other Start: 79-58-3688Vpqkbgamu encounterAnupam [facility] PsychiatryStart: 65-95-6994jxanolppwmRB NONE LISTED REQUESTFacility:Z4Wgtpq: 01-20-2022 End: 61-45-9781rtiermzgkeZbbetg Debora Other [employer] Other Start: 38-08-9024Mvlbnunjy encounterAnupam [facility] PsychiatryStart: 01-11-2022 End: 28-34-5064jkchibmqdmNP NONE LISTED REQUESTFacility:A1Qxiti: 01-09-2022 End: 19-41-9546ottjfbvqenPI EHAB ELTAHAWYFacility:J8Uxssx: 01-06-2022 End: 00-23-9446cmrskgpqluKpvbao Debora Other [employer] Other Start: 00-39-6928Ncuoazbyu encounterAnupam [facility] PsychiatryStart: 12-27-2021 End: 61-07-9328embbyynpwyHYQJSLV TUCKERFacility:B3Gfcrd: 12-16-2021 End: 45-41-0049hnkhegzacsVlcpim Debora Other [employer] Other Start: 48-14-0473Skkbasgen encounterAnupam [facility] PsychiatryStart: 12-11-2021 End: 38-44-9568lykxebwksdRlkpxw Debora Other [place] [employer] Other Start: 28-75-1727Yfewijwps encounterAnupam [facility] PsychiatryStart: 11-30-2021 End: 67-34-7949Ptwrbzxtpv and management of inpatientPatrick Joaquim RADFORDDEAN [facility] Start: 11-21-2021 End: 43-97-8733zyzlhhtyefVAYAVUU BOESFacility:K4Lfhni: 55-13-5473vcqhcwuukwSH SURAJCARRIE LIZFacility:F7Lchga: 11-01-2021 End: 60-71-1319ofrawguhsoSONHTDF BOESFacility:K0Crjbk: 10-18-2021 End: 63-23-3975Sjrkcillvj and management of inpatientMARCIA BRAUNFacility:[facility] Start: 41-96-3411kfwqgyazoyRC SURAJ Crowley BRAUNFacility:Y4Sndfi: 09-30-2021 End: 64-77-2498zahjzrrqjrOU EHAB KELLIYFacility:D8Tvobm: 09-16-2021 End: 29-56-7854adjtwqtbtmTwfcgw Debora Other [place] [employer] Other Start: 77-76-7587Lzcctqqmn encounterAnupam [facility] PsychiatryStart: 09-06-2021 End: 67-80-0402ohspwvrpgdQIGTPYI BOESFacility:G4Gkluq: 08-26-2021 End: 68-91-0006ckecxgdybmCowkbh [facility] Other [facility]Ch[facility] Other Start: 94-32-1446Vgujfisju encounterAnupam [facility] PsychiatryStart: 08-20-2021 End: 10-10-1858Uveqetdafi and management of inpatientZOHAIB AHMEDFacility:[facility] Start: 29-85-2880twoeihmzzfAE MARCIA E BRAUNFacility:C2Hqolj: 2021 End: 01-44-3708zccvjizowkYV SHAYAB KELLIMonikaFacility:B3Hmcqn: 08-01-2021 End: 86-89-8843Dvyzubd encounter procedureRobert W WILDER [facility] [place] Start: 07-30-2021 End: 26-69-4137gwewyaebieME EHAB ELTATAVARESNorth [facility] Hospital [employer] Other Start: 40-75-6433Xborkmzao encounterAnupam aF PsychiatryStart: 07-22-2021 End: 22-83-0897fycefjieonQpodja Debora Other [employer] Other Start: 55-92-1294Baclrwohu encounterAnupam [facility] PsychiatryStart: 07-17-2021 End: 25-20-1463Jorrqmxfwu and management of inpatientASIF MAHMOODFacility:[facility] Start: 07-15-2021 End: 89-31-6618kjvjydhibgEofowr Debora Other [employer] Other Start: 25-20-0988Qxjumefha encounterAnupam aF PsychiatryStart: 12-88-1827emeejodiqmAS SURAJ LIZFacility:H4Ajnhq: 06-27-2021 End: 90-65-2080unanomisvdRvachu Debora Other [employer] Other Start: 14-97-8427Cqcckclsc encounterAnupam [facility] PsychiatryStart: 60-48-8373Ndayqn outpatient visit 15 minutesChristopher AvendaPaulding County Hospital SouthStart: 06-26-2021 End: 02-63-8465dnzsetwghyOY MARCIA E BRAUNNorth [employer] Other Start: 06-19-2021 End: 53-86-2576motywtvglwHV DAVID V WESTFacility:Q3Ofrbo: 06-18-2021 End: 36-38-4233uxylenpizfCV MARCIA E BRAUNFacility:V1Etnfs: 42-92-4490zyfffvdzwx DR SURAJ LIZFacility:F9Tjmns: 04-18-2021 End: 45-77-5226ndqynypyfzYB Steven ZieberFacility:H1 Procedures DateProcedureProcedure DetailPerforming ClinicianStart: 93-62-9333Sclvqw-up visitHANI SAADStart: 14-37-9372Byhx bld gluc mntr dev cleared fda spec home use Laz Romo MD Work Phone: Start: 30-42-6716Ivgs bld gluc mntr dev cleared fda spec home useLaz Romo MD Work Phone: Start: 90-40-3993DI of chestSuraj Liz MD Work Phone: Start: 79-85-0744Xjjkqz-up visitHANI SAADStart: 96-21-4833Lvougp-up visitHANI SAADStart: 67-19-2596Urlayc-up visitHANI NILSON Start: 57-61-6122Ympemt-up visitHANI SAADStart: 27-89-0125Gxubh X-ray of bilateral handsMD Suraj Liz Work Phone: Start: 28-49-4045Iiqn Fast CultureMD Suraj Liz Work Phone: Start: 55-15-7157Wtsq Fast SmearMD Suraj Liz Work Phone: Start: 34-61-6022JQE Specimen ProcessingMD Suraj Liz Work Phone: Start: 61-08-4117Ldtpg Culture 1MD Suraj Liz Work Phone: Start: 49-72-8529Ojfqg Culture 2MD Suraj iLz Work Phone: Start: 86-47-2688Csmofslcvkp of wound of skinAlaa ALAHMADStart: 72-00-3511Lvbwiyut AND drainageAlaa ALAHMADStart: 05-23-2022 Incision AND drainageKareem DolceStart: 77-61-9472Zrulbtpjcp of halluxHasan AMIR Start: 33-60-7985Gaizl X-ray of left hipMD Suraj Liz Work Phone: Start: 26-89-1543Y-ray of lumbar spine, two or three viewsMD Suraj Liz Work Phone: Start: 66-76-7339Vrucyhbudbtg skin (body structure) Teddy HDZ Comment on above:EPIDERMAL SKIN GRAFT CELLUTOMEStart: 41-88-8458NztutnnplsdGvmzrqe Joleen DPM Work Phone: Amputated toe (finding)Teddy WILDER appendectomyRobert RICE Bypass of stomachRobert RICE ColonoscopyRobert RICE CystoscopyRobert TMS Plan of Treatment DateCare ActivityDetailAuthorStart: 40-78-6843Xpexzmpyy for malignant neoplasm of colonNOMS HealthcareStart: 07-03-2025 End: 68-61-6481Bymjmll encounter cysawdvbd52/23/2026 2:00 PM EST Office Visit [facility] [place] [facility] [address] [place] [phone] Laz Romo MD [address] [place] [address] [facility] [place] [facility]ocrinologyStart: 02-86-9084Wdholkrof vaccinationInfluenza Vaccine (#1)[facility] HealthcareStart: 12-28-2024 End: 42-02-7736Mmewljn encounter procedureNOSOUTHEAST MISSOURI [facility] ENDOCRINOLOGYComment on above: Type 2 diabetes mellitus with hyperglycemia, unspecified whether lobsterman insulin use ([facility])Start: 74-13-2068Iopgb screening for proteinDiabetes: Urine Protein ScreeningNOWV HealthcareStart: 08-31-2024 End: 04-52-1749Oxkhljw encounter semikkret06/23/2025 10:00 AM EDT Office Visit [facility] [address] [place] [address] Laz Romo MD [address] [place] [address] Type 2 diabetes mellitus with hyperglycemia, unspecified whether half-way insulin use ([facility] ENDOCRINOLOGYComment on above:Type 2 diabetes mellitus with hyperglycemia, unspecified whether lobsterman insulin use ([facility])Start: 07-25-2024 End: 42-93-3079Fveqrok encounter /17/2025 11:30 AM EDT Office Visit [facility] [address] [place] [address] Laz Romo MD [address] [place] [id number] [facility] ENDOCRINOLOGYStart: 07-06-2024 End: 91-62-3512Szgcbqg encounter dqwbxiysk20/26/2025 1:15 PM EST Office Visit [facility] [address] [facility] [place] [phone] Homar Mcnair, DPM [address] [place] [address] [facility] PODIATRYStart: 04-26-2024 End: 47-49-6894Lmhbjrk encounter qjffyfhua79/17/2024 1:50 PM EST Office Visit [facility] [address] [place] [phone] Laz Romo MD [address] [place] [address] [facility] ENDOCRINOLOGYStart: 04-22-2024 End: 31-37-0161Vpxotcd encounter /13/2024 11:15 AM EST [facility] [address] [facility] [place] [address] Homar Mcnair DPM [address] [place] [address] ArrivedTRI-STATE MEMORIAL [facility] PODIATRYComment on above:ArrivedStart: 04-04-2024 End: 86-16-1035Ibtjtwz encounter vsauxttus38/25/2024 4:15 PM EST Office Visit [facility] [address] [place] [phone] Homar Mcnair DPM [address] [place] [address] ArrivedTRI-STATE MEMORIAL [facility] PODIATRYComment on above:ArrivedStart: 57-44-0664FjprzynwzRegency Hospital Companytart: 61-37-6576Fljrkuuas vaccinationInfluenza Vaccine [facility] SystemStart: 32-89-8314Sofyinkmzu A1c measurementDiabetes: Hemoglobin O7HKZNQ HealthcareStart: 37-14-3644Wntde Culture 1Blood Culture 1 [facility] Companytart: 94-27-9703Abkih Culture 2Blood Culture 2 [facility] Companytart: 38-15-4841Icxkb screening for protein Diabetes: Urine Protein ScreeningMOUNTAIN POINT [facility] HealthcareStart: 91-42-4769Eealnychjarhry of varicella zoster vaccineZoster (Shingles) Vaccine (1 of 2)[facility] SystemStart: 40-54-6486AUdS,Tdap and Td Vaccines (1 - Tdap)DTaP,Tdap and Td Vaccines (1 - Tdap)[facility] SystemStart: 51-11-3005Qbxil BMI Screening Adult BMI ScreeningProOhiohealth SystemStart: 04-72-9398Jdaxmdioih Screening Depression ScreeningProOhiohealth SystemStart: 29-48-1579Rqsjdlp Screening Tobacco ScreeningProOhiohealth SystemStart: 74-25-5872Pwgapgmd screening Diabetes: Retinopathy ScreeningMOUNTAIN [facility] HealthcareStart: 04-04-1962Medicare Annual Wellness (AWV)Medicare Annual Wellness (AWV)[facility] HealthcareStart: 1961 Screening for malignant neoplasm of colonNOWV HealthcareIgG [Mass/volume] in Serum or PlasmaKindred Hospital DaytonIgG subclass 1 [Mass/volume] in [facility] CenterIgG subclass 2 [Mass/volume] in Serum [facility] DaytonIgG subclass 3 [Mass/volume] in [facility] Medical CenterImmunoglobulin G subclass, G4 [facility] HospitalPatient EducationChest pain in adults - ED discharge instructionsOhio Valley Surgical Hospital Ctr Work Phone: Patient referralOhio Valley Surgical Hospital Ctr Work Phone: Immunizations Immunization DateImmunizationNotesCare MfbsriktTsqdrhqe51-19-6929pjbvjfnsw, injectable, quadrivalent, preservative freeAnthony Jenniferher DPM Work Phone: [facility] CenterKdkbnmhogc24-42-8993IVSE-QVF-7 (COVID-19) vaccine, mRNA, spike protein, LNP, PF, 50 mcg/0.5 mLHomar Mcnair DPM Work Phone: [facility] CenterSxqxtzdcpa40-25-0524hagbnssmw virus vaccine, unspecified formulationLaz Romo MD Work Phone: [facility] CenterXplbuvtnrg50-30-6564QWBJCYR - Respiratory syncytial virus (RSV), vaccine, bivalent, protein subunit RSV prefusion F, dil uent reconstituted, 0.5 mL, PFAnthotamela Mcnair DPM Work Phone: [facility] CenterOavohdrphf22-50-0678qhjbsplyy, injectable, quadrivalent, preservative freeAnthony Rusher DPM Work Phone: [facility] CenterArqjjnzvpg15-53-1027Pompbohkrkgf Conjugate PCV 20 Homar Rusher DPM Work Phone: [facility] CenterEouwkwqjdz28-18-6006UEIQ-GXK-5 (COVID-19) vaccine, mRNA, spike protein, LNP, PF, 50 mcg/0.5 mLAnthony Rusher DPM Work Phone: [facility] CenterZieaqjlmrs15-35-1441vwwrby vaccine recombinant Homar Rusher DPM Work Phone: [facility] CenterRnnrfsyxbe91-44-8341ELGTT-80 Vaccine Moderna - Documentation Purposes OnlyHaileyjoaquim Shalonda Other [facility]10-01-2022influenza virus vaccine, split virus (incl. purified surface antigen)Suraj Liz Other [employer] Other 10509157-89-7762bquuhbxoc virus vaccine, unspecified formulationMD Suraj Liz Work Phone: [facility]10-01-2022zoster vaccine, liveSharmindenia Liz Other [facility]10-26-2021influenza, injectable, quadrivalent, preservative freeAnthony Rusher DPM Work Phone: [facility] CenterEyatzsatgc67-17-0289EWKX-ZmX-6 (COVID-19) Ad26 vaccine, recombinantRobert RICE [facility] 12396845-64-0475myitydgqq virus vaccine, unspecified formulationRobert RICE [facility] 10762662-49-1331wvwwvjzxm virus vaccine, split virus (incl. purified surface antigen)Suraj Liz Other [employer] Other 10-27169221-14-5338uyfyqlope virus vaccine, unspecified formulationMD Suraj Liz Work Phone: [facility]12-04-2019influenza, injectable, quadrivalent, preservative freeAnthony Rusher DPM Work Phone: [facility] CenterCzmdioupvd70-97-3054gpnhzgyge, injectable, quadrivalent, contains preservativeAnthony Rusher DPM Work Phone: [facility] CenterJuuoieiagn92-54-7207mbeoqffxy virus vaccine, unspecified formulationNicole Suzanne [facility]10-12-2017 influenza, injectable, quadrivalent, contains preservativeNicole Suzanne [facility]11-01-2016influenza, injectable, quadrivalent, preservative freeNicole Suzanne [facility] CenterAcgqrf62-05-3881quxxkieljvjv conjugate vaccine, 13 valentNicole Suzanne [facility]10-01-2015 influenza, injectable, quadrivalent, contains preservativeAnthony Rusher DPM Work Phone: [facility] CenterWnytiuakbg79-17-9099bodnytr and diphtheria toxoids, adsorbed, preservative free, for adult use (5 Lf of tetanus toxoid and 2 Lf of diphtheria toxoid)Suraj Liz Other [facility]01-01-2012 pneumococcal polysaccharide vaccine, 23 valentAnthony Rusher DPM Work Phone: [facility] Payers DatePayer CategoryPayerPolicy [id number] 2022Medicaid [id number] 2007Medicare [id number] 2.16.840.1.811659.3.57[id number] 2.16.840.1.294736.3.57[id number] 2.16.840.1.115433.3.579.2.09110-92-0646Khvamht1451078 2.16.840.1.825429.3.579.2.00774-43-8994Kvcuzrv2837614 2.16.840.1.239178.3.579.2.19006-13-1853Fjvnfyy0741471 2.16840.1.916285.3.579.2.74424-94-7512Ryhmqvg6681030 2.16840.1.733471.3.579.2.63786-66-5732Cfgkykc7046226 2.16840.1.525562.3.579.2.16081-58-9482Otyjxbq3451964 2.840.1.330832.3.579.2.99750-35-4818Vsynojg4206287 2..840.1.586510.3.579.2.67512-44-0181Wkciobj2297311 2..840.1.462717.3.579.2.37761-79-2314Vqjiian2972019 2.840.1.573099.3.579.2.48313-43-7392Qlxabkj2781427 2.16840.1.619593.3.579.2.24777-05-0876Cxhdljd3543909 2.16.840.1.117147.3.579.2.02658-12-7383Peokdrp7679742 2.16.840.1.166289.3.579.2.53119-49-3552Fewladz8833140 2.16840.1.496538.3.579.2.26637-35-1990Hckeruj8654423 2.16.840.1.539038.3.579.2.94341-19-6297Tllnbuh6584064 2.16.840.1.966630.3.579.2.73362-38-2168Iutfuay6822385 2.16.840.1.203349.3.579.2.82081-22-2884Ctzshiu2955289 2.16.840.1.728051.3.579.2.43070-64-9843Jupxuah1877504 2.16840.1.438734.3.579.2.30929-98-6661Vtyxdbl9611486 2.840.1.137453.3.579.2.30038-24-4515Zjwrnsr4622236 2.840.1.016850.3.579.2.04411-20-0179Vyfsemq1249171 2.840.1.861631.3.579.2.40658-37-9837Qpaofjk13479773 2.840.1.601116.3.579.2.78595-08-7154Rzyophr27126584 2.840.1.828338.3.579.2.38878-79-7909Crbyvhu82744551 2.840.1.914239.3.579.2.89780-49-5932Fqazifo12709261 2.16840.1.339022.3.579.2.55660-43-8027Qshivux36727663 2.16840.1.764133.3.579.2.67210-94-1044Qzsogyw29209383 2.16840.1.210968.3.579.2.94799-77-7134Orwiaqr89675025 2.16.840.1.047626.3.579.2.10010-90-4935Ynvaexj74271755 2.16.840.1.270415.3.579.2.53014-79-3190Ooepvkg22553337 2.16.840.1.929348.3.579.2.71519-74-8327Oceewrr03094281 2.16.840.1.372235.3.579.2.61791-86-6327Otnhwxu72968239 2..840.1.116423.3.579.2.64795-66-0597Pbsnusf08121424 2.0.1.963657.3.579.2.50919-81-5867Txkxauu68197780 2.0.1.203262.3.579.2.769738-11-3493Bzknrnq4121531 2.0.1.462715.3.579.2.615904-69-5187Zkdklqe5399279 2.840.1.045784.3.579.2.276047-65-1974Bxpzrgk3167689 2.0.1.291010.3.579.2.148895-65-8914Yhjribi0869983 2.840.1.237190.3.579.2.361473-06-6295Seobwkn46662226 2.16840.1.235602.3.579.2.25008-62-3824Dmpaqal33407716 2.16.840.1.190843.3.579.2.83686-12-1986Qswupux29512030 2.16840.1.173447.3.579.2.58522-93-8680Iebhxuf74390537 2.16.840.1.882638.3.579.2.38959-12-0328Bhhpqja50409382 2.16.840.1.834062.3.579.2.38463-50-9068Nbaohqm72719775 2.16.840.1.138192.3.579.2.95347-83-0563Rbuvhkl46804732 2.16.840.1.775404.3.579.2.84823-33-1299Kyfhawc53519986 2.16.840.1.318311.3.579.2.89764-02-3365Wsdetcs90100330 2.16.840.1.234013.3.579.2.88151-97-9877Wvrjruq91023136 2.16.840.1.280248.3.579.2.12820-91-6740Ekgakwr67287181 2.16.840.1.662203.3.579.2.91069-66-3163Oqgteay68849313 2.16.840.1.615155.3.579.2.68034-75-9299Hzqpcmc40005222 2.16.840.1.317355.3.579.2.60463-14-5093Cemfujl46287973 2.16.840.1.078035.3.579.2.93227-61-4521Bolphev29979416 2.16.840.1.680403.3.579.2.67665-68-5654Wbnupjf24039178 2.16.840.1.610343.3.579.2.02799-90-0620Qwnadnd25910830 2.16.840.1.954516.3.579.2.52436-09-4967Iraksat17133801 2..840.1.565431.3.579.2.727 [id number] [id number]-[id number]VOC922W09431 2.16.840.8.017820.51716699-42-4016Ufai-atyrj6d12os-8c51-702y-ec02-60103vd58278 MedicareMedicare [id number] [id number] 2.16.840.1.882636.3.579.2.072Tstsetx17717395 2.16.840.1.988641.3.579.2.408Herxeim23689270 2.16.840.1.716737.3.579.2.531 Rvgyhmj38101068 2.16.840.1.269929.3.579.2.531 Social History DateTypeDetailFacilityTobacco smoking status NHISUnknown if ever smokedOhio Valley Surgical Hospital CtrStart: 38-63-8400Wuw [facility]art: 08-01-2021 End: 44-87-6569[place] smoking statusEx-smoker (finding)[facility] [place] Start: 03-07-2024 End: 10-68-3231Zws Assigned At [facility] Living [facility] [employer] Other End: 60-54-9239Niiywwr of tobacco useCurrent smokerAdams County Regional Medical Center System End: 90-07-1313Lkuzisp of tobacco useCigarette SmokerProOhiohealth System Start: 03-07-2024 End: 75-47-6701Pwmdqffczd smoked current (pack per day) - Cnwaixuh5UGSM HealthcareStart: 03-07-2024 End: 72-07-0278Xpkfwsgis beverage intakeLifetime non-drinker (finding)[facility] HealthcareStart: 60-68-8085Kzdaljp CommentQuit 07/2008[facility] HealthcareStart: 33-55-4123Cfz assigned at birthNot on fileAdams County Regional Medical Center SystemStart: 27-10-8457Cmhfyn orientationHomosexual (finding)[facility] HealthcareStart: 11-19-2017 Tobacco use and exposureSmokeless tobacco non-userAdams County Regional Medical Center SystemStart: 29-46-5802Oghyrsqic beverage intakeCurrent non-drinker of alcohol (finding) [facility] HospitalChildcareUnknowOhioHealth [facility] SystemStart: 12-12-2014 End: 20-92-0293UbgGcry (finding)[facility]art: 59-19-5775Ozlqibx smoking status NHISNever smoked tobacco (finding)[facility] Companyexual OrientationSelect Medical [facility] Medical Equipment Procedure CodeEquipment CodeEquipment Original TextEquipment IdentifierDates Start: 07-12-2019 Goals DatePatient GoalDesired Activity/StatePersonal health goalComment on above: Evaluation of progress towards goal: Patients goal is to discharge to home with Jin. Functional Status GuxqMbmkubwkljCgiixlPciddsyx03-67-4441Okrdkoqeux StatusNoSelect Medical [facility]03-15-2025Functional StatusSelect Medical [facility]10-19-2023 Functional StatusN/[facility]09-02-2023Functional StatusNo [facility]09-02-2023Functional StatusSelect [facility]04-05-2023Functional StatusN/[facility]04-05-2023 Functional StatusSelect Medical [facility]02-21-2023Functional StatusN/A [facility]02-08-2023Functional StatusN/[facility]02-08-2023Functional StatusSelect [facility]12-05-2022 Functional StatusN/AFhyun [facility] [id number] StatusN/A John [facility] CampusWqqkbg27-15-9527Wdbpzctina StatusSelect [facility] Clinical Notes 06-26-2021 to 02-27-2025 Note Date & [id number] NoteSelect Medical [facility] 02-08-2025 Evaluation note* Diagnosis Onset Date Resolution Status [...] sleep apnea hypopnea, severeacuteOctober 2024 1:33pmRestless legs syndromeacuteOctober 2024 1:33pm [facility] Work Phone: 1(846) 210-652309-06-2025 NoteDischarge Summary Admission and Discharge Information Admit Date/Time:01/02/2025 17:42 Admitting Physician - Javon Edwards DO Consulting Physician - Ronaldo Arcos M.D, DPM, Ramiro Silva [facility] Wound, XXXX Admitting Diagnoses: DNR (do not resuscitate), 01/09/2025 Discharge Order Date Discharge Patient - Ordered -- 01/14/25 9:02:00 EDT, to home Discharge Diagnoses 1. Cellulitis of right leg without foot, 01/02/2025 2. ISTAP type 2 skin tear of right lower leg, 01/02/2025 3. History of amputation, 01/02/2025 4. Wound of buttock, 01/03/2025 5. Anemia, 01/05/2025 6. Diarrheal stools, 01/08/2025 7. Hypokalemia, Hypokalemia, Hypokalemia 8. ROBYN on CPAP, 01/02/2025 9. Chronic hypoxic respiratory failure, 01/02/2025 10. COPD without exacerbation, COPD without exacerbation 11. PAF (paroxysmal atrial fibrillation), 01/02/2025 12. Chronic combined systolic and diastolic heart failure, 01/02/2025 13. Coronary artery disease, 01/02/2025 14. Hypertension, 01/02/2025 15. Hyperlipidemia, 01/02/2025 16. Diabetes, 01/02/2025 17. Bipolar disorder, 01/02/2025 18. Anxiety and depression, 01/02/2025 19. Morbid obesity due to excess calories, 01/02/2025 20. On deep vein thrombosis (DVT) prophylaxis, 01/05/2025 Cellulitis - Leg, 01/02/2025 DNR (do not resuscitate), 01/09/2025 Fever, 01/02/2025 Malaise, 01/02/2025 Procedure History Wound debridement (08/13/2022), Incision AND drainage (06/20/2022), Incision AND drainage (05/23/2022), Amputation great toe (04/16/2022), Skin graft (11/02/2019), Amputated toe, Appendectomy, Colonoscopy, Cystoscopy, Gastric bypass. Hospital Course Significant Findings Please refer to history and physical details of admission. Patient presented to the emergency room January 02 because of cellulitis to his right leg along withfevers and chills. His right leg is painful and had noted seepage for the last 2 days. He has legs are chronically swollen but nothing new. No GI complaints and no pulmonary complaints. In the ER hisC-reactive protein was 23.8 and his sed rate was elevated at 64. He had a normal white count of 10.1 but there was a neutrophilic shift of 85.4%. H&H stable at 11.1 and 32.4. Coags are unremarkable and his CMP is remarkable for sodium 133 and a potassium of 3.2. ER did a venous duplex of his right leg and there was no DVT. Patient is admitted to the medical service for further evaluation and treatment. On the medical service patient was admitted for cellulitis of his right leg and ISTAP To skin tear of the right lower leg. Infectious disease and trauma were consulted. He was maintained on ceftriaxone started in the ED at 2 g daily. Is also placed on pain control and his meds from home. Trauma sawthe patient and there is no evidence of abscess or osteo. Infectious disease saw the patient and recommended antibiotic changes with p.o. linezolid and IV Zosyn. Wound culture did grow out MRSA on the 02 January. Vancomycin was added. General surgical consultation was added because he also had a stage III coccygeal wound. He had a bedside debridement of the wound and recommended Selvin daily to the buttocks. The wound culture did grow out MRSA as mentioned. Wound care was also consulted. CT of his right lower extremity with contrast was performed on January 06 and showed no change compared to January 03. MRI of the right foot with and without contrast was also performed on January 10 and that showed no evidence of osteomyelitis but there was soft tissue edema without loculated fluidcollection to suggest abscess. Podiatry was consulted and recommended just continued local wound care per general surgery and antibiotics. Repeat wound culture January 03 showed beta-hemolytic strep not group A or B. Infectious disease recommended 10 days of p.o. linezolid and switching to 10 days of Augmentin. Hospital course was complicated by continued pain but we made some adjustments. He was requiring Dilaudid almost dpqjqd-xdw-rshka so we are starting to back off on that. He does take oxycodone in the outpatient setting. He is discharged home today and he will follow-up with the wound clinic this coming for general surgical recommendations. NOTE - it took 38 minutes to evaluate and coordinate patient for discharge including talking with general surgery plus patient and partner at the bedside Procedures and Treatment Provided 1. Venous duplex right lower extremity 01/02/[address] right lower extremity with contrast 01/03/2025 3. Infectious disease consultation 4. Trauma surgical consultation 5. General Surgery consultation 6. MRI of the right foot with and without contrast 01/10/2025 7. Podiatry consultation Services Consulted Consult to General Surgery - Ordered -- 01/02/25 18:58:00 EDT, right lower extremity ulcer/cellulits, Consult and Co-manage Consult to Infectious Disease Physician - Ordered -- 01/02/25 18:58:00 EDT, right lower leg cellulitis/wounds, Consult and Co-manage Co (more content not included)...[facility] HospitalComment on above: Result Comment: Electronically Signed By: Javon Edwards DO\Date and Time Signed: 01/14/25 09:31 [id number] NoteProgress Note-Physician Assessment/Plan 1. Cellulitis of right leg without foot (L03.115: Cellulitis of right lower limb) -2/2 MRSA infected open wounds -> see pics in media file, -CT RLE: No concern for abscess or OM -RLE DUS - neg -01/08: Add Lidoderm patch, methocarbamol, resume patient's chronic narcotic home regimen, IV Dilaudid for breakthrough pain only. -Elevate, outline area Consult ID: -Wound cx: MRSA -Bl. cx - NGTD -DC clindamycin -01/05:Transition IV vanco to po linezolid, cont. IV zosyn -01/06: DC IV zosyn, cont. po linezolid - ID recommends total of 10 days -IV diuresis -Lorenza wrap b/l LE -Repeat CT RLE: No significant change from prior study -01/06: Re-consult ACS: Repeat CT reviewed, No acute surgical intervention at this time -Recommend not unroofing blisters. If blisters pop on their own, recommend placing xeroform over any open areas of skin Consult wound care: -Apprec drsng orders Ordered: [facility] Hospital Care/Day Moderate 35 Minutes 42545 2. ISTAP type 2 skin tear of right lower leg (S81.811A: Laceration without foreign body, right lower leg, initial encounter) -POA - see pics in media file -Xray: tib/fib: no acute process -Consult wound care: -Apprec drsng orders Ordered: [facility] Hospital Care/Day Moderate 35 Minutes 33320 3. History of amputation (Z89.9: Acquired absence of limb, unspecified) -R TMA 01/31 2/2 OM + wound on bottom of stump - POA - appears to be opening more -Consult podiatry: Dr. Carol Epperson recommends continued wound care; no indication for surgical invention at this time -MRI R foot - pending -B/L PVR - pending Ordered: [facility] Hospital Care/Day Moderate 35 Minutes 87169 4. Wound of buttock (S31.969A: Unspecified open wound of unspecified buttock, initial encounter) -New since admission however pt states this area was healed and popped opened first night following admission when he turned in bed states this has happened in the past. -> see pics in media file -Coccyx wound - stage III -Donut for sitting from OB -Consider sitz bath unless contraindicated by wound -Consult ID: -WCx. - Scant growth of beta-hemolytic streptococci, non-group A/B presumptive, scant growth of bacteroids species presumptive, -01/08: Add augment x 7 days Consult wound care: -01/05: Subcutaneous and excisional debridement performed at bedside???see attached note -Daily Selvin drng. 01/10 Wound w/increased bleeding overnight. 01/11 still will significant drainage. per wound nurse - to see - for dressing recommendations for home. or other recommendations. -I did contact Dr. Zepeda Ordered: [facility] Hospital Care/Day Moderate 35 Minutes 38072 5. Anemia (D64.9: Anemia, unspecified) -2/2 LOUIE -Baseline hgb. level - 10 -11 -No acute bleeding noted, hemodynamically stable -Hemoccult stool - neg -Anemia panel -> ferrous sulfate 325 mg daily, Hold miraLAX daily -Trend labs -Outpt. f/u w/ GI for possible scopes - defer to PCP Ordered: [facility] Hospital Care/Day Moderate 35 Minutes 07458 6. Diarrheal stools (R19.7: Diarrhea, unspecified) -Stable/resolved Ordered: [facility] Hospital Care/Day Moderate 35 Minutes 19442 7. Hypokalemia, (E87.6: Hypokalemia)Hypokalemia, (E87.6: Hypokalemia)Hypokalemia -Stable at 3.8 Ordered: [facility] Hospital Care/Day Moderate 35 Minutes 36814 8. ROBYN on CPAP (G47.33: Obstructive sleep apnea (adult) (pediatric)) -Continue using home unit at bedside Ordered: [facility] Hospital Care/Day Moderate 35 Minutes 90552 9. Chronic hypoxic respiratory failure (J96.11: Chronic respiratory failure with hypoxia) -2/2 COPD, -Supplemental 02 Ordered: [facility] Hospital Care/Day Moderate 35 Minutes 70063 10. COPD without exacerbation, (J44.9: Chronic obstructive pulmonary disease, unspecified)COPD without exacerbation --Denies home 02 use -PFTs: none on file -Home regimen: albuterol -Med nebs, flutter, supplemental 02 Ordered: [facility] Hospital Care/Day Moderate 35 Minutes 86129 11. PAF (paroxysmal atrial fibrillation) (I48.0: Paroxysmal atrial fibrillation) -Continue metoprolol, aspirin and apixaban Ordered: [facility] Hospital Care/Day Moderate 35 Minutes 20663 12. Chronic combined systolic and diastolic heart failure (I50.42: Chronic combined systolic (congestive) and diastolic (congestive) heart failure) Compensated -Home regimen: bumex 3mg BID, farxiga, imdur, metoprolol, spironolactone -> gets IV bumex 3mg M/W/F at cardio clinic and my have up to 2 additional prn doses if warranted. -Echo: 07/2024: Moderate to severe LVH, EF greater than 70%, grade 1 DD, no pericardial effusion or significant valvular disease. -CXR: + COPD, picc line in situ -1.8FR ~Diuresis 13.5 L to date -Cont. bumex, jardiance, imdur, metoprolol, spironolactone -01/06: Add IV bumex 3mg M/W/F w/ 2 additional dosing prn per home regimen to IP regimen -Strict I&O, -Dry wt: To be determined at discharge -Daily wt: -HF educatio (more content not included)...[facility] HospitalComment on above:Result Comment: Electronically Signed By: Javon Edwards DO\Date and Time Signed: 01/13/25 15:45 [id number] NoteProgress Note-Physician Patient: MATT WATERMAN Age: 64 years Sex: Male : 1960 Associated Diagnoses: None Author: Ronaldo Arcos M.D Subjective Patient with R leg up on recliner. Seems to be slowing improving. On oral abx. Review of Systems Constitutional: Negative. Health Status Allergies: Allergic Reactions (Selected) Severity Not Documented GoLYTELY- Rash. Phenergan- Shortness of breath. Reglan- Twitching and rash. Sulfa drugs- Rash. Current medications: Medications (39) Active Scheduled: (26) amoxicillin-clavulanate 875 mg-125 mg Tab [F] 1 tab(s), Oral, BID apixaban 5 mg Tab [F] 5 mg 1 tab(s), Oral, BID ARIPiprazole 5 mg Tab [F] 5 mg 1 tab(s), Oral, Daily aspirin 81 mg Chew Tab [F] 81 mg 1 tab(s), Chewed, Daily atorvastatin 40 mg Tab [F] 80 mg 2 tab(s), Oral, Daily bumetanide 1 mg Tab [F] 3 mg 3 tab(s), Oral, BID cholecalciferol 1000 intl units (25 microgram) Tab [F] 25 mcg 1 tab(s), Oral, Daily empagliflozin 10 mg Tab UD [F] 10 mg 1 tab(s), Oral, Daily ferrous sulfate 325 mg Tab [F] 325 mg 1 tab(s), Oral, Every other day ferrous sulfate 325 mg Tab [F] 325 mg 1 tab(s), Oral, Daily folic acid 1 mg Tab [F] 1 mg 1 tab(s), Oral, Daily gabapentin 600 mg Tab [F] 600 mg 1 tab(s), Oral, TID insulin lispro 100 units/mL (HUMALOG) 10 mL SubQ inj [F] 0-14 Unit(s), SubCutaneous, QIDACHS isosorbide mononitrate 30 mg ER Tab [F] 90 mg 3 tab(s), Oral, qAM lactobacillus acidophilus and bulgaricus Tab [F] 1 tab(s), Oral, QID lamoTRIgine 25 mg Tab [F] 50 mg 2 tab(s), Oral, Every other day lidocaine Top 5% film [F] 1 patch(es), TransDermal, Daily linezolid 600 mg Tab [F] 600 mg 1 tab(s), Oral, BID metoprolol 25 mg ER Tab [F] 25 mg 1 tab(s), Oral, Daily oxyCODONE 10 mg ER Tab [F] 20 mg 2 tab(s), Oral, BID pantoprazole [address] Tab [F] 40 mg 1 tab(s), Oral, Daily Patient Specific Meds [F] Normal Patient Dose, Oral, Once a day (at bedtime) potassium chloride 20 mEq ER Tab [F] 60 mEq 3 tab(s), Oral, BID Remove Patch 1 patch(es), Topical, Daily sertraline 25 mg Tab [F] 25 mg 1 tab(s), Oral, Daily spironolactone 50 mg Tab [F] 50 mg 1 tab(s), Oral, Daily Continuous: (0) PRN: (13) Al hydroxide/Mg hydroxide/simethicone 200 mg-200 mg-20 mg/5 mL Oral Susp 30 mL [F] 30 mL, Oral, q6hr albuterol 0.083% Inh Modesta 3 mL [F] 2.5 mg 3 mL, Inhalation, q2hr albuterol-ipratropium 2.5 mg-0.5 mg/3 mL SOLN [F] 3 mL, Inhalation, QID dextrose 50% IV Modesta 50 mL Abboject [F] 50 mL, IV Push, q15min diazePAM 5 mg Tab [F] 5 mg 1 tab(s), Oral, Once a day (at bedtime) diclofenac topical 1% Gel [F] 1 raymon, Topical, QID glucagon recombinant 1 mg Inj [F] 1 mg 1 EA, IntraMuscular, q15min glucose 15 gm Gel [F] 15 gm 32 mL, Oral, q15min heparin flush 100 units/mL Soln 5 mL [F] 300 unit(s) 3 mL, IV Push, q12hr hydrALAZINE 20 mg/mL Inj [F] 10 mg 0.5 mL, IV Push, q6hr HYDROmorphone 1 mg/mL SOLN [F] 2 mg 2 mL, IV Push, q3hr ondansetron 2 mg/mL Inj [F] 4 mg 2 mL, IV Push, q6hr oxyCODONE 5 mg Tab UD [F] 5 mg 1 tab(s), Oral, q6hr Problem list: All Problems (Selected) Anxiety / SNOMED CT 76682806 / Confirmed Aortic root dilation / SNOMED CT 406147761 / Confirmed Atrial fibrillation / SNOMED CT 35616154 / Confirmed BPH (benign prostatic hyperplasia) / SNOMED CT 513559647 / Confirmed BPH with urinary obstruction / SNOMED CT 3778634139 / Confirmed BPH without urinary obstruction / SNOMED CT 8071086739 / Confirmed Bipolar disorder / SNOMED CT 07473025 / Confirmed BMI 35.0-35.9,adult / SNOMED CT 922773402 / Confirmed CAD - Coronary artery disease / SNOMED CT 7298905608 / Confirmed Chronic anemia / SNOMED CT 278514560 / Confirmed Chronic diastolic heart failure / SNOMED CT 7318303016 / Confirmed COPD (chronic obstructive pulmonary disease) / SNOMED CT 17336203 / Confirmed COPD without exacerbation / SNOMED CT 10902915 / Confirmed Chronic systolic heart failure / SNOMED CT 2525705441 / Confirmed CHF (congestive heart failure) / SNOMED CT 60003821 / Confirmed Coronary artery disease / SNOMED CT 91846180 / Confirmed DVT (deep venous thrombosis) / SNOMED CT 633768041 / Confirmed Diabetes / SNOMED CT 146959004 / Confirmed Diabetic peripheral neuropathy / SNOMED CT 5322707394 / Confirmed DM - Diabetes mellitus / SNOMED CT 020920677 / Confirmed ESBL 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 / SNOMED CT 1957610092 / Confirmed ESBL E coli in rt foot wound 08/14/2022 Flank pain / SNOMED CT 655224554 / Confirmed Chronic GERD / SNOMED CT 363060347 / Confirmed Personal history of kidney stones / SNOMED CT 1343118077 / Confirmed History of DVT in adulthood / SNOMED CT 2220376116 / Confirmed Hyperlipidemia / SNOMED CT 32263023 / Confirmed Hypertension / SNOMED CT 7230950570 / Confirmed Immune deficiency disorder / SNOMED CT 786457765 / Confirmed Incomplete bladder emptying / SNOMED CT 248063245 / Confirmed Incontinence without sensory awareness / SNOMED CT 3009243793 / Confirmed (more content not included)...[facility] HospitalComment on above:Result Comment: Electronically Signed By: Ronaldo Arcos M.D\Date and Time Signed: 01/13/25 09:40 [id number] NoteProgress Note-Physician Assessment/Plan 1. Cellulitis of right leg without foot (L03.115: Cellulitis of right lower limb) -2/2 MRSA infected open wounds -> see pics in media file, -CT RLE: No concern for abscess or OM -RLE DUS - neg -01/08: Add Lidoderm patch, methocarbamol, resume patient's chronic narcotic home regimen, IV Dilaudid for breakthrough pain only. -Elevate, outline area Consult ID: -Wound cx: MRSA -Bl. cx - NGTD -DC clindamycin -01/05:Transition IV vanco to po linezolid, cont. IV zosyn -01/06: DC IV zosyn, cont. po linezolid - ID recommends total of 10 days -IV diuresis -Lorenza wrap b/l LE -Repeat CT RLE: No significant change from prior study -01/06: Re-consult ACS: Repeat CT reviewed, No acute surgical intervention at this time -Recommend not unroofing blisters. If blisters pop on their own, recommend placing xeroform over any open areas of skin Consult wound care: -Apprec drsdebbie orders 2. ISTAP type 2 skin tear of right lower leg (S81.811A: Laceration without foreign body, right lower leg, initial encounter) -POA - see pics in media file -Xray: tib/fib: no acute process -Consult wound care: -Apprec drsng orders 3. History of amputation (Z89.9: Acquired absence of limb, unspecified) -R TMA 01/31 2/2 OM + wound on bottom of stump - POA - appears to be opening more -Consult podiatry: Dr. Carol Epperson recommends continued wound care; no indication for surgical invention at this time -MRI R foot - pending -B/L PVR - pending 4. Wound of buttock (S31.792V: Unspecified open wound of unspecified buttock, initial encounter) -New since admission however pt states this area was healed and popped opened first night following admission when he turned in bed states this has happened in the past. -> see pics in media file -Coccyx wound - stage III -Donut for sitting from OB -Consider sitz bath unless contraindicated by wound -Consult ID: -WCx. - Scant growth of beta-hemolytic streptococci, non-group A/B presumptive, scant growth of bacteroids species presumptive, -08/31: Add augment x 7 days Consult wound care: -01/05: Subcutaneous and excisional debridement performed at bedside???see attached note -Daily Selvin drng. 01/10 Wound w/increased bleeding overnight. 01/11 still will significant drainage. per wound nurse - to see -- for dressing recommendations for home. or other recommendations. 5. Anemia (D64.9: Anemia, unspecified) -2/2 LOUIE -Baseline hgb. level - 10 -11 -No acute bleeding noted, hemodynamically stable -Hemoccult stool - neg -Anemia panel -> ferrous sulfate 325 mg daily, Hold miraLAX daily -Trend labs -Outpt. f/u w/ GI for possible scopes - defer to PCP 6. Diarrheal stools (R19.7: Diarrhea, unspecified) -Pt. reports 2 loose stools overnight w/ mucus and foul odor, and 3 that were soft on 01/06 w/ b/l LQ abd. cramping since 04:00 this a.m. -> no further stools today -KUB - no acute findings -Cdiff, enteric panel - neg 7. Hypokalemia, (E87.6: Hypokalemia)Hypokalemia, (E87.6: Hypokalemia)Hypokalemia -Replete K/Mag prn -01/07: Resume home regimen 60Meq BID -Trend labs 8. ROBYN on CPAP (G47.33: Obstructive sleep apnea (adult) (pediatric)) -home unit at bedside 9. Chronic hypoxic respiratory failure (J96.11: Chronic respiratory failure with hypoxia) -2/2 COPD, -Supplemental 02 10. COPD without exacerbation, (J44.9: Chronic obstructive pulmonary disease, unspecified)COPD without exacerbation --Denies home 02 use -PFTs: none on file -Home regimen: albuterol -Med nebs, flutter, supplemental 02 11. PAF (paroxysmal atrial fibrillation) (I48.0: Paroxysmal atrial fibrillation) -Continue metoprolol, aspirin and apixaban 12. Chronic combined systolic and diastolic heart failure (I50.42: Chronic combined systolic (congestive) and diastolic (congestive) heart failure) Compensated -Home regimen: bumex 3mg BID, farxiga, imdur, metoprolol, spironolactone -> gets IV bumex 3mg M/W/F at cardio clinic and my have up to 2 additional prn doses if warranted. -Echo: 07/2024: Moderate to severe LVH, EF greater than 70%, grade 1 DD, no pericardial effusion or significant valvular disease. -CXR: + COPD, picc line in situ -1.8FR ~Diuresis 13.5 L to date -Cont. bumex, jardiance, imdur, metoprolol, spironolactone -01/06: Add IV bumex 3mg M/W/F w/ 2 additional dosing prn per home regimen to IP regimen -Strict I&O, -Dry wt: To be determined at discharge -Daily wt: -HF education -Consult cardio FT/HV: if warranted 13. Coronary artery disease (I25.10: Atherosclerotic heart disease of [place] coronary artery without angina pectoris) PCI x 2 - remote -Apixaban, asa, atorvastatin, bumex, farxiga, imdur, metolazone, metoprolol 14. Hypertension (I10: Essential (primary) hypertension) -Maintain antihypertensives 15. Hyperlipidemia (E78.5: Hyperlipidemia, unspecified) -Continue statin therapy 16. Diabetes (E11.9: Type 2 diabetes mellitus witho (more content not included)...[facility] HospitalComment on above:Result Comment: Electronically Signed By: Javon Edwards DO\.br\Date and Time Signed: 01/12/25 16:32 [id number] NoteProgress Note-Physician Assessment/Plan -01/05: PICC placement 2/2 poor IV access and need for IV abx/bumex and blood draws 1. Cellulitis of right leg without foot (L03.115: Cellulitis of right lower limb) 2/2 MRSA infected open wounds -> see pics in media file, -CT RLE: No concern for abscess or OM -RLE DUS - neg -01/08: Add Lidoderm patch, methocarbamol, resume patient's chronic narcotic home regimen, IV Dilaudid for breakthrough pain only. -Elevate, outline area Consult ID: -Wound cx: MRSA -Bl. cx - NGTD -DC clindamycin -01/05:Transition IV vanco to po linezolid, cont. IV zosyn -01/06: DC IV zosyn, cont. po linezolid -IV diuresis -Lorenza wrap b/l LE -Repeat CT RLE: No significant change from prior study -01/06: Re-consult ACS: Repeat CT reviewed, No acute surgical intervention at this time -Recommend not unroofing blisters. If blisters pop on their own, recommend placing xeroform over any open areas of skin Consult wound care: -Apprec johanna orders 2. ISTAP type 2 skin tear of right lower leg (S81.811A: Laceration without foreign body, right lower leg, initial encounter) POA - see pics in media file -Xray: tib/fib: no acute process Consult wound care: -Apprec johanna orders 3. 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 Carol Epperson aware - pending -MRI R foot - pending -B/L PVR - pending 4. Wound of buttock (S31.809A: Unspecified open wound of unspecified buttock, initial encounter) New since admission however pt states this area was healed and popped opened first night followingadmission when he turned in bed states this has happened in the past. -> see pics in media file -Coccyx wound - stage III -Donut for sitting from OB -Consider sitz bath unless contraindicated by wound Consult ID: -WCx. - Scant growth of beta-hemolytic streptococci, non-group A/B presumptive, scant growth of bacteroids species presumptive, -01/08: Add augment x 7 days Consult wound care: -01/05: Subcutaneous and excisional debridement performed at bedside???see attached note -Daily Selvin billie. 01/10 Wound w/increased bleeding overnight. 01/11 still will significant drainage. per wound nurse - in tomorrow. Pt to see for dressing recommendations for home. or other recommendations. 5. Anemia (D64.9: Anemia, unspecified) 2/2 LOUIE -Baseline hgb. level - -11 -No acute bleeding noted, hemodynamically stable -Hemoccult stool - neg -Anemia panel -> ferrous sulfate 325 mg daily, Hold miraLAX daily -Trend labs -Outpt. f/u w/ GI for possible scopes - defer to PCP 6. Diarrheal stools (R19.7: Diarrhea, unspecified) Pt. reports 2 loose stools overnight w/ mucus and foul odor, and 3 that were soft on 01/06 w/ b/l LQ abd. cramping since 04:00 this a.m. -> no further stools today -KUB - no acute findings -Cdiff, enteric panel - neg 7. Hypokalemia, (E87.6: Hypokalemia)Hypokalemia, (E87.6: Hypokalemia)Hypokalemia Replete K/Mag prn -01/07: Resume home regimen 60Meq BID -Trend labs 8. ROBYN on CPAP (G47.33: Obstructive sleep apnea (adult) (pediatric)) + home unit at bedside 9. Chronic hypoxic respiratory failure (J96.11: Chronic respiratory failure with hypoxia) 2/2 COPD, -Supplemental 02 10. COPD without exacerbation, (J44.9: Chronic obstructive pulmonary disease, unspecified)COPD without exacerbation Denies home 02 use -PFTs: none on file -Home regimen: albuterol -Med nebs, flutter, supplemental 02 11. PA (paroxysmal atrial fibrillation) (I48.0: Paroxysmal atrial fibrillation) -Apixaban, asa, metoprolol 12. Chronic combined systolic and diastolic heart failure (I50.42: Chronic combined systolic (congestive) and diastolic (congestive) heart failure) Compensated -Home regimen: bumex 3mg BID, farxiga, imdur, metoprolol, spironolactone -> gets IV bumex 3mg M/W/F at cardio clinic and my have up to 2 additional prn doses if warranted. -Echo: 07/2024: Moderate to severe LVH, EF greater than 70%, grade 1 DD, no pericardial effusion or significant valvular disease. -CXR: + COPD, picc line in situ -1.8FR ~Diuresis 13.5 L to date -Cont. bumex, jardiance, imdur, metoprolol, spironolactone -01/06: Add IV bumex 3mg M/W/F w/ 2 additional dosing prn per home regimen to IP regimen -Strict I&O, -Dry wt: To be determined at discharge -Daily wt: -HF education -Consult cardio FT/HV: if warranted 13. Coronary artery disease (I25.10: Atherosclerotic heart disease of [place] coronary artery without angina pectoris) PCI x 2 - remote -Apixaban, asa, atorvastatin, bumex, farxiga, imdur, metolazone, metoprolol, 14. Hypertension (I10: Essential (primary) hypertension) -Cardiac meds as above 15. Hyperlipidemia (E78.5: Hyperlipidemia, unspecified) -Statin 16. Diabetes (E11.9: Type 2 diabetes mellitus without complications) W/ (more content not included)...[facility] HospitalComment on above: Result Comment: Electronically Signed By: Skyla COWART\.br\Date and Time Signed: 01/11/25 13:50 EDT\.br\Electronically Co-Signed By: Javon Edwards DO\.br\Date and Time Co-Signed:01/11/25 15:52 [id number] Note Consultation Note Patient: MATT WATERMAN Age: 64 years Sex: Male : 1960 Associated Diagnoses: None Author: Ramiro Epperson DPM Subjective Patient seen at bedside today history of a nonhealing ulceration right foot and erythema to the right leg. Currently under the care of general surgery as well as Dr. Arcos of infectious disease. Previous transmetatarsal amputation. Recently MRI was ordered which showed no fluid collection or osteomyelitis. These wounds are being managed by general surgery. Health Status Allergies: Allergic Reactions (Selected) Severity Not Documented GoLYTELY- Rash. Phenergan- Shortness of breath. Reglan- Twitching and rash. Sulfa drugs- Rash., Allergies (4) Active Severity Reaction sulfa drugs rash Phenergan Shortness of Breath GoLYTELY rash Reglan Rash, Twitching Current medications: (Selected) Inpatient Medications Ordered Abilify 5 mg Tab: 5 mg = 1 tab(s), Tab, Oral, Daily, Routine, Start date 01/03/25 9:00:00 EDT, 01/02/25 21:37:00 EDT Al hydroxide/Mg hydroxide/simethicone 200 mg-200 mg-20 mg/5 mL oral suspension: 30 mL, Susp-Oral, Oral, q6hr PRN Indigestion, Routine, Start date 01/02/25 18:42:00 EDT Augmentin 875 mg-125 mg Tab: 1 tab(s), Tab, Oral, BID for 7 day(s), Stop date 01/15/25 9:20:00 EDT,NOW, Start date 01/08/25 9:21:00 EDT Dextrose 50% Soln-IV: 50 mL, Soln-IV, IV Push, q15min PRN Low blood sugar, Routine, Start date 01/02/25 18:49:00 EDT Dilaudid 1 mg/mL injectable solution: 1 mg = 1 mL, Injection, IV Push, q3hr PRN Pain 8-10, NOW, Start date 01/08/25 12:28:00 EDT, ONLY for breakthrough pain, 01/08/25 12:28:00 EDT DuoNeb 2.5 mg-0.5 mg/3 mL Soln-Inh: 3 mL, Soln-Inh, Inhalation, QID PRN Shortness of breath or wheezing, Routine, Start date 01/05/25 12:35:00 EDT Eliquis 5 mg oral tablet: 5 mg = 1 tab(s), Tab, Oral, BID, Routine, Start date 01/02/25 21:36:00 EDT, 01/02/25 21:36:00 EDT Insulin Lispro High Dose (Resistant) Sliding Scale: 0-14 Unit(s), Injection- Insulin, SubCutaneous, QIDACHS, NOW, Start date 01/06/25 21:41:00 EDT Jardiance 10 mg oral tablet: 10 mg = 1 tab(s), Tab, Oral, Daily, Routine, Start date 01/04/25 9:00:00 EDT, 01/03/25 12:16:00 EDT Lidoderm 5% Patch: 1 patch(es), Patch, TransDermal, Daily, NOW, Start date 01/08/25 11:38:00 EDT, Apply to post/lateral side of RLE, avoid open areas Pantoprazole [address] Tab: 40 mg = 1 tab(s), Tab-DR, Oral, Daily, Routine, Start date 01/06/25 9:00:00 EDT Quviviq: Quviviq, Normal Patient Dose, Each, Oral, Once a day (at bedtime) for 30 day(s), Stop date02/02/25 20:59:00 EDT, Routine, Start date 01/03/25 21:00:00 EDT Valium 5 mg Tab: 5 mg = 1 tab(s), Tab, Oral, Once a day (at bedtime) PRN Other (see comment), Routine, Start date 01/05/25 12:43:00 EDT, 01/05/25 12:43:00 EDT Zofran 4 mg/2 mL Injection: 4 mg = 2 mL, Injection, IV Push, q6hr PRN Nausea, Routine, Start date 01/02/25 18:42:00 EDT, 01/02/25 18:42:00 EDT albuterol 0.083% Inh Modesta 3 mL: 2.5 mg, 3 mL, Soln-Inh, Inhalation, q2hr PRN Shortness of breath or wheezing, Routine, Start date 01/05/25 12:35:00 EDT aspirin 81 mg Chew Tab: 81 mg = 1 tab(s), Tab-Chew, Chewed, Daily, Routine, Start date 01/03/25 9:00:00 EDT, 01/02/25 21:37:00 EDT atorvastatin 40 mg Tab: 80 mg = 2 tab(s), Tab, Oral, Daily, Routine, Start date 01/03/25 9:00:00 EDT, 01/02/25 21:37:00 EDT bumetanide 0.25 mg/mL Inj 4 mL: 3 mg = 12 mL, Injection, IV Push, MonWedFri for 3 dose(s), Stop date 01/13/25 8:59:00 EDT, NOW, Start date 01/06/25 11:21:00 EDT, In addition to po dosing bumetanide 1 mg Tab: 3 mg = 3 tab(s), Tab, Oral, BID, Routine, Start date 01/03/25 9:00:00 EDT, 01/02/25 21:37:00 EDT cholecalciferol 1000 intl units (25 mcg) oral tablet: 25 mcg = 1 tab(s), Tab, Oral, Daily, Routine,Start date 01/03/25 9:00:00 EDT, 01/02/25 21:37:00 EDT diclofenac topical 1% gel: 1 raymon, Gel, Topical, QID PRN Pain, Routine, Start date 01/02/25 21:38:00EDT ferrous sulfate 325 mg Tab: 325 mg = 1 tab(s), Tab, Oral, Daily, Routine, Start date 01/03/25 9:00:00 EDT, 01/02/25 21:38:00 EDT ferrous sulfate 325 mg Tab: 325 mg = 1 tab(s), Tab, Oral, Every other day, NOW, Start date 01/07/2512:22:00 EDT, 01/06/25 12:22:00 EDT folic acid 1 mg Tab: 1 mg = 1 tab(s), Tab, Oral, Daily, Routine, Start date 01/03/25 9:00:00 EDT, 01/02/25 21:38:00 EDT gabapentin 600 mg Tab: 600 mg = 1 tab(s), Tab, Oral, TID, Routine, Start date 01/02/25 22:00:00 EDT, 01/02/25 21:38:00 EDT glucagon recombinant 1 mg Inj: 1 mg = 1 EA, Injection, IntraMuscular, q15min PRN Low blood sugar, Routine, Start date 01/02/25 18:49:00 EDT, 01/02/25 18:49:00 EDT glucose Oral gel: 15 gm = 32 mL, Gel, Oral, q15min PRN Low blood sugar, Routine, Start date 01/02/25 18:49:00 EDT, 01/02/25 18:49:00 EDT heparin flush 100 units/mL Soln 5 mL: 300 unit(s) = 3 mL, Soln-IV, IV Push, q12hr PRN Other (see comment), Routine, Start date 01/05/25 12:28:00 EDT, 01/05/25 12:28:00 EDT hydrALAZINE 20 mg/mL Inj: 10 mg = 0.5 mL, Injection (more content not included)...[facility] HospitalComment on above:Result Comment: Electronically Signed By: Argelia GOODSON, Ramiro Sweet.domenic\Date and Time Signed: 01/10/25 17:28 [id number] NoteProgress Note-Physician Assessment/Plan -01/05: PICC placement 2/2 poor IV access and need for IV abx/bumex and blood draws 1. Cellulitis of right leg without foot (L03.115: Cellulitis of right lower limb) 2/2 MRSA infected open wounds -> see pics in media file, -CT RLE: No concern for abscess or OM -RLE DUS - neg -01/08: Add Lidoderm patch, methocarbamol, resume patient's chronic narcotic home regimen, IV Dilaudid for breakthrough pain only. -Elevate, outline area Consult ID: -Wound cx: MRSA -Bl. cx - NGTD -DC clindamycin -01/05:Transition IV vanco to po linezolid, cont. IV zosyn -01/06: DC IV zosyn, cont. po linezolid -IV diuresis -Lorenza wrap b/l LE -Repeat CT RLE: No significant change from prior study -01/06: Re-consult ACS: Repeat CT reviewed, No acute surgical intervention at this time -Recommend not unroofing blisters. If blisters pop on their own, recommend placing xeroform over any open areas of skin Consult wound care: -Apprec drsng orders 2. ISTAP type 2 skin tear of right lower leg (S81.811A: Laceration without foreign body, right lower leg, initial encounter) POA - see pics in media file -Xray: tib/fib: no acute process Consult wound care: -Apprec drsng orders 3. 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 Carol Epperson aware - pending -MRI R foot - pending -B/L PVR - pending 4. Wound of buttock (S31.809A: Unspecified open wound of unspecified buttock, initial encounter) New since admission however pt states this area was healed and popped opened first night followingadmission when he turned in bed states this has happened in the past. -> see pics in media file -Coccyx wound - stage III -Donut for sitting from OB -Consider sitz bath unless contraindicated by wound Consult ID: -WCx. - Scant growth of beta-hemolytic streptococci, non-group A/B presumptive, scant growth of bacteroids species presumptive, -01/08: Add augment x 7 days Consult wound care: -01/05: Subcutaneous and excisional debridement performed at bedside???see attached note -Daily Selvin drng. 01/10 Wound w/increased bleeding overnight. Wound to see again today. 5. Anemia (D64.9: Anemia, unspecified) 06/12 LOUIE -Baseline hgb. level - 10 11 -No acute bleeding noted, hemodynamically stable -Hemoccult stool - neg -Anemia panel -> ferrous sulfate 325 mg daily, Hold miraLAX daily -Trend labs -Outpt. f/u w/ GI for possible scopes - defer to PCP 6. Diarrheal stools (R19.7: Diarrhea, unspecified) Pt. reports 2 loose stools overnight w/ mucus and foul odor, and 3 that were soft on 01/06 w/ b/l LQ abd. cramping since 04:00 this a.m. -> no further stools today -KUB - no acute findings -Cdiff, enteric panel - neg 7. Hypokalemia, (E87.6: Hypokalemia)Hypokalemia, (E87.6: Hypokalemia)Hypokalemia Replete K/Mag prn -01/07: Resume home regimen 60Meq BID -Trend labs 8. ROBYN on CPAP (G47.33: Obstructive sleep apnea (adult) (pediatric)) + home unit at bedside 9. Chronic hypoxic respiratory failure (J96.11: Chronic respiratory failure with hypoxia) 2/2 COPD, -Supplemental 02 10. COPD without exacerbation, (J44.9: Chronic obstructive pulmonary disease, unspecified)COPD without exacerbation Denies home 02 use -PFTs: none on file -Home regimen: albuterol -Med nebs, flutter, supplemental 02 11. PA (paroxysmal atrial fibrillation) (I48.0: Paroxysmal atrial fibrillation) -Apixaban, asa, metoprolol 12. Chronic combined systolic and diastolic heart failure (I50.42: Chronic combined systolic (congestive) and diastolic (congestive) heart failure) Compensated -Home regimen: bumex 3mg BID, farxiga, imdur, metoprolol, spironolactone -> gets IV bumex 3mg M/W/F at cardio clinic and my have up to 2 additional prn doses if warranted. -Echo: 07/2024: Moderate to severe LVH, EF greater than 70%, grade 1 DD, no pericardial effusion or significant valvular disease. -CXR: + COPD, picc line in situ -1.8FR ~Diuresis 13.5 L to date -Cont. bumex, jardiance, imdur, metoprolol, spironolactone -01/06: Add IV bumex 3mg M/W/F w/ 2 additional dosing prn per home regimen to IP regimen -Strict I&O, -Dry wt: To be determined at discharge -Daily wt: -HF education -Consult cardio FT/HV: if warranted 13. Coronary artery disease (I25.10: Atherosclerotic heart disease of [place] coronary artery without angina pectoris) PCI x 2 - remote -Apixaban, asa, atorvastatin, bumex, farxiga, imdur, metolazone, metoprolol, 14. Hypertension (I10: Essential (primary) hypertension) -Cardiac meds as above 15. Hyperlipidemia (E78.5: Hyperlipidemia, unspecified) -Statin 16. Diabetes (E11.9: Type 2 diabetes mellitus without complications) W/ peripheral neuropathy -Accuchecks AC/HS w/ SSI prn -A1c - 6.2% -Home regimen: Jardiance, metformin, -Hold metformin while inpatient- (more content not included)...[facility] HospitalComment on above:Result Comment: Electronically Signed By: Skyla COWART\.br\Date and Time Signed: 01/10/25 10:07 EDT\.br\Electronically Co-Signed By: Skyla COWART\.br\Date and Time Co-Signed: 01/10/25 10:11 EDT\.br\Electronically Co-Signed By: Javon Edwards DO\.br\Date and Time Co-Signed: 01/10/25 16:10 [id number] Note Progress Note-Physician Patient: MATT WATERMAN Age: 64 years Sex: Male : 1960 Associated Diagnoses: None Author: Ronaldo Arcos M.D Subjective Patient remains in the hospital. Remains on antibiotics. Tells me the right lower leg swelling is better again. When I last saw him Thursday he was having another CAT scan that did not show anything and just had an MRI that did not show any deep fluid collection or osteomyelitis for that matter. He denies any complaints that are new. Health Status Allergies: Allergic Reactions (Selected) Severity Not Documented GoLYTELY- Rash. Phenergan- Shortness of breath. Reglan- Twitching and rash. Sulfa drugs- Rash. Current medications: Medications (40) Active Scheduled: (27) amoxicillin-clavulanate 875 mg-125 mg Tab [F] 1 tab(s), Oral, BID apixaban 5 mg Tab [F] 5 mg 1 tab(s), Oral, BID ARIPiprazole 5 mg Tab [F] 5 mg 1 tab(s), Oral, Daily aspirin 81 mg Chew Tab [F] 81 mg 1 tab(s), Chewed, Daily atorvastatin 40 mg Tab [F] 80 mg 2 tab(s), Oral, Daily bumetanide 0.25 mg/mL Inj 4 mL [F] 3 mg 12 mL, IV Push, MonWedFri bumetanide 1 mg Tab [F] 3 mg 3 tab(s), Oral, BID cholecalciferol 1000 intl units (25 microgram) Tab [F] 25 mcg 1 tab(s), Oral, Daily empagliflozin 10 mg Tab UD [F] 10 mg 1 tab(s), Oral, Daily ferrous sulfate 325 mg Tab [F] 325 mg 1 tab(s), Oral, Every other day ferrous sulfate 325 mg Tab [F] 325 mg 1 tab(s), Oral, Daily folic acid 1 mg Tab [F] 1 mg 1 tab(s), Oral, Daily gabapentin 600 mg Tab [F] 600 mg 1 tab(s), Oral, TID insulin lispro 100 units/mL (HUMALOG) 10 mL SubQ inj [F] 0-14 Unit(s), SubCutaneous, QIDACHS isosorbide mononitrate 30 mg ER Tab [F] 90 mg 3 tab(s), Oral, qAM lactobacillus acidophilus and bulgaricus Tab [F] 1 tab(s), Oral, QID lamoTRIgine 25 mg Tab [F] 50 mg 2 tab(s), Oral, Every other day lidocaine Top 5% film [F] 1 patch(es), TransDermal, Daily linezolid 600 mg Tab [F] 600 mg 1 tab(s), Oral, BID metoprolol 25 mg ER Tab [F] 25 mg 1 tab(s), Oral, Daily oxyCODONE 10 mg ER Tab [F] 20 mg 2 tab(s), Oral, BID pantoprazole [address] Tab [F] 40 mg 1 tab(s), Oral, Daily Patient Specific Meds [F] Normal Patient Dose, Oral, Once a day (at bedtime) potassium chloride 20 mEq ER Tab [F] 60 mEq 3 tab(s), Oral, BID Remove Patch 1 patch(es), Topical, Daily sertraline 25 mg Tab [F] 25 mg 1 tab(s), Oral, Daily spironolactone 50 mg Tab [F] 50 mg 1 tab(s), Oral, Daily Continuous: (0) PRN: (13) Al hydroxide/Mg hydroxide/simethicone 200 mg-200 mg-20 mg/5 mL Oral Susp 30 mL [F] 30 mL, Oral, q6hr albuterol 0.083% Inh Modesta 3 mL [F] 2.5 mg 3 mL, Inhalation, q2hr albuterol-ipratropium 2.5 mg-0.5 mg/3 mL SOLN [F] 3 mL, Inhalation, QID dextrose 50% IV Modesta 50 mL Abboject [F] 50 mL, IV Push, q15min diazePAM 5 mg Tab [F] 5 mg 1 tab(s), Oral, Once a day (at bedtime) diclofenac topical 1% Gel [F] 1 raymon, Topical, QID glucagon recombinant 1 mg Inj [F] 1 mg 1 EA, IntraMuscular, q15min glucose 15 gm Gel [F] 15 gm 32 mL, Oral, q15min heparin flush 100 units/mL Soln 5 mL [F] 300 unit(s) 3 mL, IV Push, q12hr hydrALAZINE 20 mg/mL Inj [F] 10 mg 0.5 mL, IV Push, q6hr HYDROmorphone 1 mg/mL SOLN [F] 1 mg 1 mL, IV Push, q3hr ondansetron 2 mg/mL Inj [F] 4 mg 2 mL, IV Push, q6hr oxyCODONE 5 mg Tab UD [F] 5 mg 1 tab(s), Oral, q6hr Problem list: All Problems (Selected) Anxiety / SNOMED CT 24947817 / Confirmed Aortic root dilation / SNOMED CT 244129948 / Confirmed Atrial fibrillation / SNOMED CT 34631473 / Confirmed BPH (benign prostatic hyperplasia) / SNOMED CT 387217069 / Confirmed BPH with urinary obstruction / SNOMED CT 3151068376 / Confirmed BPH without urinary obstruction / SNOMED CT 4516344003 / Confirmed Bipolar disorder / SNOMED CT 62276594 / Confirmed BMI 35.0-35.9,adult / SNOMED CT 851229987 / Confirmed CAD - Coronary artery disease / SNOMED CT 3226053947 / Confirmed Chronic anemia / SNOMED CT 153478840 / Confirmed Chronic diastolic heart failure / SNOMED CT 6939980175 / Confirmed COPD (chronic obstructive pulmonary disease) / SNOMED CT 99347482 / Confirmed COPD without exacerbation / SNOMED CT 37254443 / Confirmed Chronic systolic heart failure / SNOMED CT 8045205711 / Confirmed CHF (congestive heart failure) / SNOMED CT 12195570 / Confirmed Coronary artery disease / SNOMED CT 53977565 / Confirmed DVT (deep venous thrombosis) / SNOMED CT 422042085 / Confirmed Diabetes / SNOMED CT 199128943 / Confirmed Diabetic peripheral neuropathy / SNOMED CT 1917379504 / Confirmed DM - Diabetes mellitus / SNOMED CT 665065851 / Confirmed ESBL 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 / SNOMED CT 1796926065 / Confirmed ESBL E coli in rt foot wound 08/14/2022 Flank pain / SNOMED CT 702903436 / Confirmed Chronic GERD / SNOMED CT 798771428 / Confirmed Personal history of kidney stones / SNOMED CT 0051353228 / Confirmed History of DVT in adulthood / SNOMED CT 0542101134 / Confirmed Hyperlipidemia / SNOMED CT 92 (more content not included)...[facility] CenterComment on above:Result Comment: Electronically Signed By: Ronaldo Arcos M.D\.br\Date and Time Signed: 01/10/25 15:14 [id number] NoteProgress Note-Physician Updated Surgery Progress Note: Surgery re-engaged today due to worsening cellulitis. Pt reports worsening pain and throbbing to his RLE. CT scan to RLE with contrast obtained today. No concern for abscess or NSTI. Physical Exam: Constitutional: Sitting up in bedside chair HEENT: moist mucus membranes Cardiovascular: RRR Pulmonary/Chest: Breathing comfortably on RA Abdominal: soft, non distended, nontender Musculoskeletal: well healed amputation to the right forefoot. Erythema to the right lower extremity from ankle to just below the knee. No fluctuance appreciated. Blisters to the lower extremity. No areas of necrotic tissue Plan: - No acute surgical intervention at this time - Recommend not unroofing blisters. If blisters pop on their own, recommend placing xeroform over any open areas of skin - Continue antibiotics for cellulitis per medicine and ID - Surgery will sign off. Please feel free to call with any questions Manuel Puckett PA-C Trauma Surgery/Surgical Critical Care/Acute Care SurgeryMccullough-[facility] HospitalComment on above:Result Comment: Electronically Signed By: Italo BROWN, Manuel Tavares\.br\Date and Time Signed: 01/06/25 18:47 EDT\.br\Electronically Co- Signed By: Long Domínguez MD\.br\Date and Time Co-Signed: 01/09/2517:56 EDT 01-09-2025 NoteProgress Note-Physician Assessment/Plan -01/05: PICC placement 2/2 poor IV access and need for IV abx/bumex and blood draws 1. Cellulitis of right leg without foot (L03.115: Cellulitis of right lower limb) 2/2 MRSA infected open wounds -> see pics in media file, -CT RLE: No concern for abscess or OM -RLE DUS - neg -01/08: Add Lidoderm patch, methocarbamol, resume patient's chronic narcotic home regimen, IV Dilaudid for breakthrough pain only. -Elevate, outline area Consult ID: -Wound cx: MRSA -Bl. cx - NGTD -DC clindamycin -01/05:Transition IV vanco to po linezolid, cont. IV zosyn -01/06: DC IV zosyn, cont. po linezolid -IV diuresis -Lorenza wrap b/l LE -Repeat CT RLE: No significant change from prior study -01/06: Re-consult ACS: Repeat CT reviewed, No acute surgical intervention at this time -Recommend not unroofing blisters. If blisters pop on their own, recommend placing xeroform over any open areas of skin Consult wound care: -Apprec drsng orders Ordered: Sbsq Hospital Care/Day Moderate 35 Minutes [id number] 2. ISTAP type 2 skin tear of right lower leg (S81.811A: Laceration without foreign body, right lower leg, initial encounter) POA - see pics in media file -Xray: tib/fib: no acute process Consult wound care: -Apprec drsng orders 3. 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 Delgado for R TMA stump wound: not avail -Consult podiatry: Dr. Carol Epperson aware - pending -MRI R foot - pending -B/L PVR - pending 4. Wound of buttock (S31.677F: Unspecified open wound of unspecified buttock, initial encounter) New since admission however pt states this area was healed and popped open last night when he turned in bed states this has happened in the past. -> see pics in media file -Coccyx wound - stage III -Donut for sitting from OB -Consider sitz bath unless contraindicated by wound Consult ID: -WCx. - Scant growth of beta-hemolytic streptococci, non-group A/B presumptive, scant growth of bacteroids species presumptive, -01/08: Add augment x 7 days Consult wound care: -01/05: Subcutaneous and excisional debridement performed at bedside???see attached note -Daily Selvin drng. 5. Anemia (D64.9: Anemia, unspecified) 2/2 LOUIE -Baseline hgb. level - -No acute bleeding noted, hemodynamically stable -Hemoccult stool - neg -Anemia panel -> ferrous sulfate 325 mg daily, Hold miraLAX daily -Trend labs -Outpt. f/u w/ GI for possible scopes - defer to PCP 6. Diarrheal stools (R19.7: Diarrhea, unspecified) Pt. reports 2 loose stools overnight w/ mucus and foul odor, and 3 that were soft on 01/06 w/ b/l LQ abd. cramping since 04:00 this a.m. -> no further stools today -KUB - no acute findings -Cdiff, enteric panel - neg 7. Hypokalemia, (E87.6: Hypokalemia)Hypokalemia, (E87.6: Hypokalemia)Hypokalemia Replete K/Mag prn -01/07: Resume home regimen 60Meq BID -Trend labs 8. ROBYN on CPAP (G47.33: Obstructive sleep apnea (adult) (pediatric)) + home unit at bedside 9. Chronic hypoxic respiratory failure (J96.11: Chronic respiratory failure with hypoxia) 2/2 COPD, -Supplemental 02 10. COPD without exacerbation, (J44.9: Chronic obstructive pulmonary disease, unspecified)COPD without exacerbation Denies home 02 use -PFTs: none on file -Home regimen: albuterol -Med nebs, flutter, supplemental 02 11. PAF (paroxysmal atrial fibrillation) (I48.0: Paroxysmal atrial fibrillation) -Apixaban, asa, metoprolol 12. Chronic combined systolic and diastolic heart failure (I50.42: Chronic combined systolic (congestive) and diastolic (congestive) heart failure) Compensated -Home regimen: bumex 3mg BID, farxiga, imdur, metoprolol, spironolactone -> gets IV bumex 3mg M/W/F at cardio clinic and my have up to 2 additional prn doses if warranted. -Echo: 07/2024: Moderate to severe LVH, EF greater than 70%, grade 1 DD, no pericardial effusion or significant valvular disease. -CXR: + COPD, picc line in situ -1.8FR ~Diuresis 13.5 L to date -Cont. bumex, jardiance, imdur, metoprolol, spironolactone -01/06: Add IV bumex 3mg M/W/F w/ 2 additional dosing prn per home regimen to IP regimen -Strict I&O, -Dry wt: To be determined at discharge -Daily wt: -HF education -Consult cardio FT/HV: if warranted 13. Coronary artery disease (I25.10: Atherosclerotic heart disease of [place] coronary artery without angina pectoris) PCI x 2 - remote -Apixaban, asa, atorvastatin, bumex, farxiga, imdur, metolazone, metoprolol, 14. Hypertension (I10: Essential (primary) hypertension) -Cardiac meds as above 15. Hyperlipidemia (E78.5: Hyperlipidemia, unspecified) -Statin 16. Diabetes (E11.9: Type 2 diabetes mellitus without complications) W/ peripheral neuropathy -Accuchecks AC/HS w/ SSI prn -A1c - 6.2% -Mariah (more content not included)...[facility] HospitalComment on above: Result Comment: Electronically Signed By: Atiya GARDUNO\.br\Date and Time Signed: 01/09/25 09:12 EDT\.br\Electronically Co-Signed By: Atiya ROUSE\.br\Date and Time Co-Signed: 01/09/25 13:22 EDT\.br\Electronically Co- Signed By: Atiya GARDUNO\.br\Date and Time Co-Signed: 01/09/25 13:27 EDT\.br\Electronically Co-Signed By: Javon Edwards DO\.br\Date and Time Co-Signed: 01/09/25 15:32 [id number] NoteMicrobiology PROCEDURE: Blood Culture Charcoal [R1] SOURCE: Blood BODY SITE: Hand L COLLECTED DATE/TIME: 01/02/2025 13:53 EDT RECEIVED DATE/TIME: 01/02/2025 14:04 EDT START DATE/TIME: 01/02/2025 14:04 EDT FREE TEXT SOURCE: Minerva Juarez PA-C, PA-C, Rachel L. FINAL REPORTS Final Report [] Verified Date/Time: 01/09/2025 15:00 EDT No growth at 7 days. Performing Locations R1: This test was performed at: [facility], [address] [place] [address], [id number] [place] [address], [address] [place], [place] [address]Comment on above:Performed By: #### [id number] #### [facility] [address] [place] [address] [id number] NoteMicrobiology PROCEDURE: Blood Culture Charcoal [R1] SOURCE: Blood BODY SITE: Arm R COLLECTED DATE/TIME: 01/02/2025 13:30 EDT RECEIVED DATE/TIME: 01/02/2025 14:04 EDT START DATE/TIME: 01/02/2025 14:04 EDT FREE TEXT SOURCE: rt forearm Ann BROWN, Minerva Juarez PA-C, Minerva Fields. FINAL REPORTS Final Report [] Verified Date/Time: 01/09/2025 15:00 EDT No growth at 7 days. Performing Locations R1: This test was performed at: [facility], [address] [place] [address], [id number] [place] [address], [id number] StreetComment on above:Performed By: #### [id number] #### [facility] [address] [place] [address] [id number] NoteProgress Note-Physician Adv. Care planning: - Members present: Patient, Patient's , Bernie HERBERT - Reviewed goals of care with patient, CODE STATUS options: Full code, DNR CCA, DNR CCA???DNI, DNR CC - After a lengthy conversation regarding each CODE STATUS option patient has chosen: DNR CC - DNR form completed, witnessed by Bernie HERBERT, patient's and scanned to chart -Approximate time spent with patient and completion of form: 17minsMccullough-[facility] HospitalComment on above:Result Comment: Electronically Signed By: Atiya GARDUNO\.br\Date and Time Signed: 01/09/25 08:44 EDT\.br\Electronically Co-Signed By: Juarez Whyte III, DO\Date and Time Co-Signed: 01/09/25 13:19 [id number] NoteProgress Note-Nurse Extractor Operator Solvent Process, Atiya DYE BLENDER, patient, and patient's at bedside. Atiya DYE BLENDER talking to patient about his concern of changing code status from full code to DNR-CC. Extractor Operator Solvent Process witnessed the request of the patient wishing to be a DNRCC. Patient alert and oriented. Patient and educated about what the change of status would mean in emergent situations. Both understanding the agreements and wishing to proceed with change. DNRCC paperwork signed at bedside by patient, Atiya DYE BLENDER and commercial loan underwriter 01/09/2025 at 0826.[facility]08-31-2025 NoteProgress Note-Physician Assessment/Plan Assessment/Plan -01/05: PICC placement 2/2 poor IV access and need for IV abx and blood draws 1. Cellulitis of right leg without foot (L03.115: Cellulitis of right lower limb) 2/2 open wounds -> see pics in media file -01/07: Repeat pics added to media file -CT RLE: No concern for abscess or OM -RLE DUS - neg -Pain mgt., supportive care -Elevate, outline area Consult ID: -Wound cx: MRSA -Bl. cx - NGTD -DC clindamycin -01/05:Transition IV vanco to po linezolid, cont. IV zosyn -01/06: DC IV zosyn, cont. po linezolid -IV diuresis -Lorenza wrap b/l LE -Repeat CT RLE: No significant change from prior study -01/06: Re-consult ACS: Repeat CT reviewed, No acute surgical intervention at this time -Recommend not unroofing blisters. If blisters pop on their own, recommend placing xeroform over any open areas of skin Consult wound care: -Apprec drsng orders Ordered: Sbsq Hospital Care/Day Moderate 35 Minutes [id number] 2. ISTAP type 2 skin tear of right lower leg (S81.811A: Laceration without foreign body, right lower leg, initial encounter) POA - see pics in media file -Xray: tib/fib: no acute process Consult wound care: -Apprec drsng orders 3. 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 Wound of buttock (S31.803M: Unspecified open wound of unspecified buttock, initial encounter) New since admission however pt states this area was healed and popped open last night when he turned in bed states this has happened in the past. -> see pics in media file -Coccyx wound - stage III -Donut for sitting from OB -Consider sitz bath unless contraindicated by wound Consult ID: -WCx. - Scant growth of beta-hemolytic streptococci, nongroup A/B presumptive, scant growth of bacteroids species presumptive, -01/08: Add augment x 7 days Consult wound care: -01/05: Subcutaneous and excisional debridement performed at bedside???see attached note -Daily Selvin drng. 5. Anemia (D64.9: Anemia, unspecified) 2/2 LOUIE -Baseline hgb. level - 10 -11 -No acute bleeding noted, hemodynamically stable -Hemoccult stool - neg -Anemia panel -> ferrous sulfate 325 mg daily, Hold miraLAX daily -Trend labs -Outpt. f/u w/ GI for possible scopes - defer to PCP 6. Diarrheal stools (R19.7: Diarrhea, unspecified) Pt. reports 2 loose stools overnight w/ mucus and foul odor, and 3 that were soft on 01/06 w/ b/l LQ abd. cramping since 04:00 this a.m. -KUB - pending -Cdiff, enteric panel - pending 7. Hypokalemia, (E87.6: Hypokalemia)Hypokalemia, (E87.6: Hypokalemia)Hypokalemia Replete K/Mag prn -Resume home regimen 60Meq BID -Trend labs 8. ROBYN on CPAP (G47.33: Obstructive sleep apnea (adult) (pediatric)) + home unit at bedside 9. Chronic hypoxic respiratory failure (J96.11: Chronic respiratory failure with hypoxia) 2/2 COPD, -Supplemental 02 10. COPD without exacerbation, (J44.9: Chronic obstructive pulmonary disease, unspecified)COPD without exacerbation Denies home 02 use -PFTs: none on file -Home regimen: albuterol -Med nebs, flutter, supplemental 02 11. PAF (paroxysmal atrial fibrillation) (I48.0: Paroxysmal atrial fibrillation) -Apixaban, asa, metoprolol 12. Chronic combined systolic and diastolic heart failure (I50.42: Chronic combined systolic (congestive) and diastolic (congestive) heart failure) Compensated -Home regimen: bumex 3mg BID, farxiga, imdur, metoprolol, spironolactone, -01/06: Pt. gets IV bumex 3mg M/W/F at cardio clinic and my have up to 2 additional prn doses if warranted. -Echo: 07/2024: Moderate to severe LVH, EF greater than 70%, grade 1 DD, no pericardial effusion or significant valvular disease. -CXR: + COPD, picc line in situ -1.8FR ~Diuresis 7.4L to date -Cont. bumex, jardiance, imdur, metoprolol, spironolactone -01/06: Add IV bumex per home regimen to IP regimen -Strict I&O, -Dry wt: To be determined at discharge -Daily wt: -HF education -Consult cardio FT/HV: if warranted 13. Coronary artery disease (I25.10: Atherosclerotic heart disease of [place] coronary artery without angina pectoris) PCI x 2 - remote -Apixaban, asa, atorvastatin, bumex, farxiga, imdur, metolazone, metoprolol, 14. Hypertension (I10: Essential (primary) hypertension) -Cardiac meds as abov 15. Hyperlipidemia (E78.5: Hyperlipidemia, unspecified) -Statin 16. Diabetes (E11.9: Type 2 diabetes mellitus without complications) W/ peripheral neuropathy -Accuchecks AC/HS w/ SSI prn -A1c - 6.2% -Home regimen: Jardiance, metformin, -Hold metformin while inpatient- -Rx. dosing protocol -Hypoglycemic protocol 17. Bipolar disorder (F31.9: Bipolar disorder, unspecified) Stable, denies SI/HI -Abilify, quviviq, sertraline, lamotrigine, 18. Anxiety and depression (F41.9: Anxiety disorder, unspecifi (more content not included)...[facility] HospitalComment on above:Result Comment: Electronically Signed By: UYEN KELLY, Atiya\.br\Date and Time Signed: 01/08/25 11:40 EDT\.br\Electronically Co-Signed By: Atiya GARDUNO\.br\Date and Time Co-Signed: 01/08/25 11:48 EDT\.br\Electronically Co- Signed By: Juarez Whyte III, DO01-08-2025 NoteProgress Note-Physician Assessment/Plan Assessment/Plan -01/05: PICC placement 2/2 poor IV access and need for IV abx and blood draws 1. Cellulitis of right leg without foot (L03.115: Cellulitis of right lower limb) 2/2 open wounds -> see pics in media file -01/07: Repeat pics added to media file -CT RLE: No concern for abscess or OM -RLE DUS - neg -Pain mgt., supportive care -Elevate, outline area Consult ID: -Wound cx: MRSA -Bl. cx - NGTD -DC clindamycin -01/05:Transition IV vanco to po linezolid, cont. IV zosyn -01/06: DC IV zosyn, cont. po linezolid -IV diuresis -Lorenza wrap b/l LE -Repeat CT RLE: No significant change from prior study -01/06: Re-consult ACS: Repeat CT reviewed, No acute surgical intervention at this time -Recommend not unroofing blisters. If blisters pop on their own, recommend placing xeroform over any open areas of skin Consult wound care: -Apprec drsng orders [facility] Mod[facility] 35 Minutes [id number] 2. ISTAP type 2 skin tear of right lower leg (S81.811A: Laceration without foreign body, right lower leg, initial encounter) POA - see pics in media file -Xray: tib/fib: no acute process Consult wound care: -Apprec drsng orders 3. 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 Wound of buttock (S31.809A: Unspecified open wound of unspecified buttock, initial encounter) New since admission however pt states this area was healed and popped open last night when he turned in bed states this has happened in the past. -> see pics in media file -Coccyx wound - stage III -Donut for sitting from OB -Consider sitz bath unless contraindicated by wound Consult ID: -WCx. - Scant growth of beta-hemolytic streptococci, nongroup A/B presumptive, scant growth of bacteroids species presumptive, -01/08: Add augment x 7 days Consult wound care: -01/05: Subcutaneous and excisional debridement performed at bedside???see attached note -Daily Selvin drng. 5. Anemia (D64.9: Anemia, unspecified) 2/2 LOUIE -Baseline hgb. level - 10 -11 -No acute bleeding noted, hemodynamically stable -Hemoccult stool - neg -Anemia panel -> ferrous sulfate 325 mg daily, Hold miraLAX daily -Trend labs -Outpt. f/u w/ GI for possible scopes - defer to PCP 6. Diarrheal stools (R19.7: Diarrhea, unspecified) Pt. reports 2 loose stools overnight w/ mucus and foul odor, and 3 that were soft on 01/06 w/ b/l LQ abd. cramping since 04:00 this a.m. -KUB - pending -Cdiff, enteric panel - pending 7. Hypokalemia, (E87.6: Hypokalemia)Hypokalemia, (E87.6: Hypokalemia)Hypokalemia Replete K/Mag prn -Resume home regimen 60Meq BID -Trend labs 8. ROBYN on CPAP (G47.33: Obstructive sleep apnea (adult) (pediatric)) + home unit at bedside 9. Chronic hypoxic respiratory failure (J96.11: Chronic respiratory failure with hypoxia) 2/2 COPD, -Supplemental 02 10. COPD without exacerbation, (J44.9: Chronic obstructive pulmonary disease, unspecified)COPD without exacerbation Denies home 02 use -PFTs: none on file -Home regimen: albuterol -Med nebs, flutter, supplemental 02 11. PAF (paroxysmal atrial fibrillation) (I48.0: Paroxysmal atrial fibrillation) -Apixaban, asa, metoprolol 12. Chronic combined systolic and diastolic heart failure (I50.42: Chronic combined systolic (congestive) and diastolic (congestive) heart failure) Compensated -Home regimen: bumex 3mg BID, farxiga, imdur, metoprolol, spironolactone, -01/06: Pt. gets IV bumex 3mg M/W/F at cardio clinic and my have up to 2 additional prn doses if warranted. -Echo: 07/2024: Moderate to severe LVH, EF greater than 70%, grade 1 DD, no pericardial effusion or significant valvular disease. -CXR: + COPD, picc line in situ -1.8FR ~Diuresis 7.4L to date -Cont. bumex, jardiance, imdur, metoprolol, spironolactone -01/06: Add IV bumex per home regimen to IP regimen -Strict I&O, -Dry wt: To be determined at discharge -Daily wt: -HF education -Consult cardio FT/HV: if warranted 13. Coronary artery disease (I25.10: Atherosclerotic heart disease of [place] coronary artery without angina pectoris) PCI x 2 - remote -Apixaban, asa, atorvastatin, bumex, farxiga, imdur, metolazone, metoprolol, 14. Hypertension (I10: Essential (primary) hypertension) -Cardiac meds as abov 15. Hyperlipidemia (E78.5: Hyperlipidemia, unspecified) -Statin 16. Diabetes (E11.9: Type 2 diabetes mellitus without complications) W/ peripheral neuropathy -Accuchecks AC/HS w/ SSI prn -A1c - 6.2% -Home regimen: Jardiance, metformin, -Hold metformin while inpatient- -Rx. dosing protocol -Hypoglycemic protocol 17. Bipolar disorder (F31.9: Bipolar disorder, unspecified) Stable, denies SI/HI -Abilify, quviviq, sertraline, lamotrigine, 18. Anxiety and depression (F41.9: Anxiety disorder, unspecifi (more content not included)...[facility] HospitalComment on above:Result Comment: Electronically Signed By: Atiya GARDUNO\.br\Date and Time Signed: 01/08/25 11:40 EDT\.br\Electronically Co-Signed By: Atiya GARDUNO\.br\Date and Time Co-Signed: 01/08/25 11:48 EDT\.br\Electronically Co- Signed By: Juarez Whyte III, DO\.br\Date and Time Co-Signed: 01/09/25 13:19 [id number] NoteProgress Note-Physician Assessment/Plan Assessment/Plan -01/05: PICC placement 2/2 poor IV access and need for IV abx and blood draws 1. Cellulitis of right leg without foot (L03.115: Cellulitis of right lower limb) 2/2 open wounds -> see pics in media file -01/07: Repeat pics added to media file -CT RLE: No concern for abscess or OM -RLE DUS - neg -Pain mgt., supportive care -Elevate, outline area Consult ID: -Wound cx: MRSA -Bl. cx - NGTD -DC clindamycin -01/05:Transition IV vanco to po linezolid, cont. IV zosyn -01/06: DC IV zosyn, cont. po linezolid -IV diuresis -Lorenza wrap b/l LE -Repeat CT RLE: No significant change from prior study -01/06: Re-consult ACS: Repeat CT reviewed, No acute surgical intervention at this time -Recommend not unroofing blisters. If blisters pop on their own, recommend placing xeroform over any open areas of skin Consult wound care: -Apprec drsng orders Ordered: [facility] Hospital Care/Day Moderate 35 Minutes [id number] 2. ISTAP type 2 skin tear of right lower leg (S81.811A: Laceration without foreign body, right lower leg, initial encounter) POA - see pics in media file -Xray: tib/fib: no acute process Consult wound care: -Apprec drsng orders 3. 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 Wound of buttock (S31.265Y: Unspecified open wound of unspecified buttock, initial encounter) New since admission however pt states this area was healed and popped open last night when he turned in bed states this has happened in the past. -> see pics in media file -Coccyx wound - stage III -Donut for sitting from OB -Consider sitz bath unless contraindicated by wound Consult ID: -WCx. - Scant growth of beta-hemolytic streptococci, nongroup A/B presumptive, scant growth of bacteroids species presumptive, -01/08: Add augment x 7 days Consult wound care: -01/05: Subcutaneous and excisional debridement performed at bedside???see attached note -Daily Selvin drng. 5. Anemia (D64.9: Anemia, unspecified) 2/2 LOUIE -Baseline hgb. level - 10 -11 -No acute bleeding noted, hemodynamically stable -Hemoccult stool - neg -Anemia panel -> ferrous sulfate 325 mg daily, Hold miraLAX daily -Trend labs -Outpt. f/u w/ GI for possible scopes - defer to PCP 6. Diarrheal stools (R19.7: Diarrhea, unspecified) Pt. reports 2 loose stools overnight w/ mucus and foul odor, and 3 that were soft on 01/06 w/ b/l LQ abd. cramping since 04:00 this a.m. -KUB - pending -Cdiff, enteric panel - pending 7. Hypokalemia, (E87.6: Hypokalemia)Hypokalemia, (E87.6: Hypokalemia)Hypokalemia Replete K/Mag prn -Resume home regimen 60Meq BID -Trend labs 8. ROBYN on CPAP (G47.33: Obstructive sleep apnea (adult) (pediatric)) + home unit at bedside 9. Chronic hypoxic respiratory failure (J96.11: Chronic respiratory failure with hypoxia) 2/2 COPD, -Supplemental 02 10. COPD without exacerbation, (J44.9: Chronic obstructive pulmonary disease, unspecified)COPD without exacerbation Denies home 02 use -PFTs: none on file -Home regimen: albuterol -Med nebs, flutter, supplemental 02 11. PAF (paroxysmal atrial fibrillation) (I48.0: Paroxysmal atrial fibrillation) -Apixaban, asa, metoprolol 12. Chronic combined systolic and diastolic heart failure (I50.42: Chronic combined systolic (congestive) and diastolic (congestive) heart failure) Compensated -Home regimen: bumex 3mg BID, farxiga, imdur, metoprolol, spironolactone, -01/06: Pt. gets IV bumex 3mg M/W/F at cardio clinic and my have up to 2 additional prn doses if warranted. -Echo: 07/2024: Moderate to severe LVH, EF greater than 70%, grade 1 DD, no pericardial effusion or significant valvular disease. -CXR: + COPD, picc line in situ -1.8FR ~Diuresis 7.4L to date -Cont. bumex, jardiance, imdur, metoprolol, spironolactone -01/06: Add IV bumex per home regimen to IP regimen -Strict I&O, -Dry wt: To be determined at discharge -Daily wt: -HF education -Consult cardio FT/HV: if warranted 13. Coronary artery disease (I25.10: Atherosclerotic heart disease of [place] coronary artery without angina pectoris) PCI x 2 - remote -Apixaban, asa, atorvastatin, bumex, farxiga, imdur, metolazone, metoprolol, 14. Hypertension (I10: Essential (primary) hypertension) -Cardiac meds as abov 15. Hyperlipidemia (E78.5: Hyperlipidemia, unspecified) -Statin 16. Diabetes (E11.9: Type 2 diabetes mellitus without complications) W/ peripheral neuropathy -Accuchecks AC/HS w/ SSI prn -A1c - 6.2% -Home regimen: Jardiance, metformin, -Hold metformin while inpatient- -Rx. dosing protocol -Hypoglycemic protocol 17. Bipolar disorder (F31.9: Bipolar disorder, unspecified) Stable, denies SI/HI -Abilify, quviviq, sertraline, lamotrigine, 18. Anxiety and depression (F41.9: Anxiety disorder, unspecifi (more content not included)...[facility] HospitalComment on above:Result Comment: Electronically Signed By: Atiya GARDUNO\.br\Date and Time Signed: 01/08/25 09:12 EDT\.br\Electronically Co-Signed By: Josep GARDUNO.br\Date and Time Co-Signed: 01/08/25 09:31 EDT\.br\Electronically Co- Signed By: Juarez Whyte III, DO.domenic\Date and Time Co-Signed: 01/08/25 10:15 [id number] NoteMicrobiology PROCEDURE: Wound Culture [R1] SOURCE: Wound BODY SITE: Buttock COLLECTED DATE/TIME: 01/03/2025 09:39 EDT RECEIVED DATE/TIME: 01/03/2025 12:22 EDT START DATE/TIME: 01/03/2025 12:22 EDT FREE TEXT SOURCE: IRIS AGPCJYOTSNA, IRIS AGPCNP, Skyla Crum FINAL REPORTS Final Report [] Verified Date/Time: 01/07/2025 14:06 EDT Scant growth of Beta Hemolytic Streptococci, non group A or B Presumptive Scant growth of Bacteroides species Presumptive 2+ Normal skin adelso isolated STAINS Gram Stain Report [] Verified Date/Time: 01/04/2025 08:35 EDT No WBC's seen. Occasional Gram Positive Cocci SUSCEPTIBILITY RESULTS LEGEND: S=Susceptible, N/R=Not Reported, Blank=Data not available, or drug not advisable or tested, I=Intermediate, ESBL=Extended spectrum beta-lactamase, R=Resistant, TFG=Thymidine-dependent strain, REGLA=Beta-lactamase positive, ERYN=mcg/m;(mg/L), S*=Predicted susceptible interp, R*=Predicted resistant interp StrepNAB Antibiotic ERYN Dilutn ERYN Interp Ampicillin <=0.06 S Azithromycin <=0.25 S Ceftriaxone <=0.25 S Clindamycin <=0.06 S Erythromycin <=0.06 S Penicillin <=0.03 S Tetracycline <=0.5 S Vancomycin 0.5 S Performing Locations R1: This test was performed at: [facility], [address] [place] [address], [id number]- , , IbexmsMccullough-Hyde Memorial HospitalComment on above:Performed By: #### [id number] #### [facility] [address] [place] [address] [id number] NoteProgress Note-Physician Assessment/Plan -01/05: PICC placement 2/2 poor IV access and need for IV abx and blood draws -Pt.s at bedside today, reviewed labs, diagnostics, j2ee consultant recommendations, all questions answered. 1. Cellulitis of right leg without foot (L03.115: Cellulitis of right lower limb) 2/2 open wounds -> see pics in media file -01/07: Repeat pics added to media file -CT RLE: No concern for abscess or OM -RLE DUS - neg -Pain mgt., supportive care -Elevate, outline area Consult ID: -Wound cx: MRSA -Bl. cx - NGTD -DC clindamycin -01/05:Transition IV vanco to po linezolid, cont. IV zosyn -01/06: DC IV zosyn, cont. po linezolid -IV diuresis -Lorenza wrap b/l LE -Repeat CT RLE: No significant change from prior study -01/06: Re-consult ACS: Repeat CT reviewed, No acute surgical intervention at this time -Recommend not unroofing blisters. If blisters pop on their own, recommend placing xeroform over any open areas of skin Consult wound care: -Apprec drsng orders [facility] High 50 Minutes [id number] 2. ISTAP type 2 skin tear of right lower leg (S81.811A: Laceration without foreign body, right lower leg, initial encounter) POA - see pics in media file -Xray: tib/fib: no acute process Consult wound care: -Apprec drsng orders 3. 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 Wound of buttock (S31.890Y: Unspecified open wound of unspecified buttock, initial encounter) New since admission however pt states this area was healed and popped open last night when he turned in bed states this has happened in the past. -> see pics in media file -Coccyx wound - stage III -Donut for sitting from OB -Consider sitz bath unless contraindicated by wound Consult ID: -WCx. - Scant growth of Streptococcus species beta-hemolytic, bacterial rods, normal skin adelso -IV abx as above Consult wound care: -01/05: Subcutaneous and excisional debridement performed at bedside???see attached note -Daily Selvin drng. 5. Anemia (D64.9: Anemia, unspecified) 2/2 LOUIE -Baseline hgb. level - 10 -11 -No acute bleeding noted, hemodynamically stable -Hemoccult stool - neg -Anemia panel -> ferrous sulfate 325 mg daily, MiraLAX daily -Trend labs -Outpt. f/u w/ GI for possible scopes - defer to PCP 6. Hypokalemia, (E87.6: Hypokalemia)Hypokalemia, (E87.6: Hypokalemia)Hypokalemia Replete K/Mag prn -Resume home regimen 60Meq BID -Trend labs 7. ROBYN on CPAP (G47.33: Obstructive sleep apnea (adult) (pediatric)) + bipap home use 8. Chronic hypoxic respiratory failure (J96.11: Chronic respiratory failure with hypoxia) 2/2 COPD, -Supplemental 02 9. COPD without exacerbation, (J44.9: Chronic obstructive pulmonary disease, unspecified)COPD without exacerbation Denies home 02 use -PFTs: none on file -Home regimen: albuterol -Med nebs, flutter, supplemental 02 10. PAF (paroxysmal atrial fibrillation) (I48.0: Paroxysmal atrial fibrillation) -Apixaban, asa, metoprolol 11. Chronic combined systolic and diastolic heart failure (I50.42: Chronic combined systolic (congestive) and diastolic (congestive) heart failure) Compensated -Home regimen: bumex 3mg BID, farxiga, imdur, metoprolol, spironolactone, -01/06: Pt. gets IV bumex 3mg M/W/F at cardio clinic and my have up to 2 additional prn doses if warranted. -Echo: 07/2024: Moderate to severe LVH, EF greater than 70%, grade 1 DD, no pericardial effusion or significant valvular disease. -CXR: + COPD, picc line in situ -1.8FR ~Diuresis 7.4L to date -Cont. bumex, jardiance, imdur, metoprolol, spironolactone -01/06: Add IV bumex per home regimen to IP regimen -Strict I&O, -Dry wt: To be determined at discharge -Daily wt: -HF education -Consult cardio FT/HV: if warranted 12. Coronary artery disease (I25.10: Atherosclerotic heart disease of [place] coronary artery without angina pectoris) PCI x 2 - remote -Apixaban, asa, atorvastatin, bumex, farxiga, imdur, metolazone, metoprolol, 13. Hypertension (I10: Essential (primary) hypertension) -Cardiac meds as abov 14. Hyperlipidemia (E78.5: Hyperlipidemia, unspecified) -Statin 15. Diabetes (E11.9: Type 2 diabetes mellitus without complications) W/ peripheral neuropathy -Accuchecks AC/HS w/ SSI prn -A1c - 6.2% -Home regimen: Jardiance, metformin, -Hold metformin while inpatient- -Rx. dosing protocol -Hypoglycemic protocol 16. Bipolar disorder (F31.9: Bipolar disorder, unspecified) Stable, denies SI/HI -Abilify, quviviq, sertraline, lamotrigine, 17. Anxiety and depression (F41.9: Anxiety disorder, unspecified) See above 18. Morbid obesity due to excess calories (E66.01: Morbid (severe) obesity due to excess calories) BMI 36 + multiple co-morbid conditions --Educated on need for lifestyle modifications (more content not included)... [facility]:Result Comment: Electronically Signed By: UYEN ORTEGA-BRIDGETT, Atiya\.br\Date and Time Signed: 01/07/25 10:46 EDT\.br\Electronically Co-Signed By: Juarez Whyte III, DO.domenic\Date and Time Co-Signed: 01/07/25 13:21 [id number] NoteProgress Note - Nutrition 5 day rescreen. Pt admitted with dx cellulitis right leg without foot. Pt is on 1800 calorie diabetic diet, 1800ml fluid restriction- review of intake is usually 100% of meals reported. Skin concernsnoted. BMI 36.68. Hgba1c 6.2 within acceptable range. 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 Cellulitis of right leg without foot (L03.115: Cellulitis of right lower limb) 2/2 open wounds -> see pics in media file CT RLE: No concern for abscess or OM -RLE DUS - neg -Pain mgt., supportive care -Elevate, outline area Consult ID: -Wound cx: MRSA -Bl. cx - NGTD -DC clindamycin -Transition IV vanco to po linezolid, cont. IV zosyn -01/06: DC IV zosyn, cont. po linezolid -IV diuresis -Lorenza wrap b/l LE -01/06: Re-consult ACS 2/2 worsening edema and erythema -Repeat CT RLE: No significant change from prior study -Will see pt. later today Consult wound care: -Apprec drsng orders Ordered: [facility] Care/Day Moderate 35 Minutes [id number] 2. ISTAP type 2 skin tear of right lower leg (S81.811A: Laceration without foreign body, right lower leg, initial encounter) POA - see pics in media file -Xray: tib/fib: no acute process Consult wound care: -Apprec drsng orders 3. 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 Wound of buttock (S31.809A: Unspecified open wound of unspecified buttock, initial encounter) New since admission however pt states this area was healed and popped open last night when he turned in bed states this has happened in the past. -> see pics in media file -Donut for sitting from OB -Consider sitz bath unless contraindicated by wound Consult ID: -WCx. - Scant growth of Streptococcus species beta-hemolytic, bacterial rods, normal skin adelso -IV abx as above Consult wound care: -01/05: Subcutaneous and excisional debridement performed at bedside???see attached note -Daily Selvin drng. 5. Anemia (D64.9: Anemia, unspecified) 2/2 LOUIE -Baseline hgb. level - 10 -11 -No acute bleeding noted, hemodynamically stable -Hemoccult stool - neg -Anemia panel -> ferrous sulfate 325 mg daily, MiraLAX daily -Trend labs -Outpt. f/u w/ GI for possible scopes - defer to PCP 6. Hypokalemia, (E87.6: Hypokalemia)Hypokalemia, (E87.6: Hypokalemia)Hypokalemia Replete K/Mag prn -Resume home regimen 60Meq BID -Trend labs 7. ROBYN on CPAP (G47.33: Obstructive sleep apnea (adult) (pediatric)) + bipap home use 8. Chronic hypoxic respiratory failure (J96.11: Chronic respiratory failure with hypoxia) 2/2 COPD, -Supplemental 02 9. COPD without exacerbation, (J44.9: Chronic obstructive pulmonary disease, unspecified)COPD without exacerbation Denies home 02 use -PFTs: none on file -Home regimen: albuterol -Med nebs, flutter, supplemental 02 10. PAF (paroxysmal atrial fibrillation) (I48.0: Paroxysmal atrial fibrillation) -Apixaban, asa, metoprolol 11. Chronic combined systolic and diastolic heart failure (I50.42: Chronic combined systolic (congestive) and diastolic (congestive) heart failure) Compensated -Home regimen: bumex 3mg BID, farxiga, imdur, metoprolol, spironolactone, -01/06: Pt. gets IV bumex 3mg M/W/F at cardio clinic and my have up to 2 additional prn doses if warranted. -Echo: 07/2024: Moderate to severe LVH, EF greater than 70%, grade 1 DD, no pericardial effusion or significant valvular disease. -CXR: + COPD, picc line in situ -1.8FR ~Diuresis 6.4L to date -Cont. bumex, jardiance, imdur, metoprolol, spironolactone -01/06: Add IV bumex to IP regimen -Strict I&O, -Dry wt: To be determined at discharge -Daily wt: -HF education -Consult cardio FT/HV: if warranted 12. Coronary artery disease (I25.10: Atherosclerotic heart disease of [place] coronary artery without angina pectoris) PCI x 2 - remote -Apixaban, asa, atorvastatin, bumex, farxiga, imdur, metolazone, metoprolol, 13. Hypertension (I10: Essential (primary) hypertension) -Cardiac meds as above 14. Hyperlipidemia (E78.5: Hyperlipidemia, unspecified) -Statin 15. Diabetes (E11.9: Type 2 diabetes mellitus without complications) W/ peripheral neuropathy -Accuchecks AC/HS w/ SSI prn -A1c - pending -Home regimen: Jardiance, metformin, -Hold metformin while inpatient- -Rx. 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 Bipolar disorder (F31.9: Bipolar disorder, unspecified) Stable, denies SI/HI -Abilify, quviviq, sertraline, lamotrigine, 17. Anxiety and depression (F41.9: Anxiety disorder, unspecified) See above 18. Morbid obesity due to excess calories (E66.01: Morbid (severe) obesity due to excess calories) BMI 36 + multiple co-morbid conditions --Educated on need for lifestyle modifications with goal of weight loss as obesity causes a pro- inflamm state resulting in a negative impact on co-morbid conditions. 19. On deep vein thrombosis (DVT) prophylaxi (more content not included)... [facility]:Result Comment: Electronically Signed By: Atiya GARDUNO\.br\Date and Time Signed: 01/06/25 12:28 EDT\.br\Electronically Co-Signed By: Mimi COLIN MD\.br\Date and Time Co- Signed: 01/06/25 12:31 [id number] NoteProgress Note-Physician Patient: MATT WATERMAN Age: 64 years Sex: Male : 1960 Associated Diagnoses: None Author: Ronaldo Arcos M.D Subjective Patient states his right lower extremity still is swollen and feels that is not getting much better. He does have back from another CT scan of what sounds to be of the right lower extremity again. Hehad 1 of these the other day that just showed cellulitis. Patient denies fevers or chills he remains on broad-spectrum IV antibiotics. Wound culture did come back since I last saw him with MRSA Health Status Allergies: Allergic Reactions (Selected) Severity Not Documented GoLYTELY- Rash. Phenergan- Shortness of breath. Reglan- Twitching and rash. Sulfa drugs- Rash. Current medications: Medications (34) Active Scheduled: (22) apixaban 5 mg Tab [F] 5 mg 1 tab(s), Oral, BID ARIPiprazole 5 mg Tab [F] 5 mg 1 tab(s), Oral, Daily aspirin 81 mg Chew Tab [F] 81 mg 1 tab(s), Chewed, Daily atorvastatin 40 mg Tab [F] 80 mg 2 tab(s), Oral, Daily bumetanide 1 mg Tab [F] 3 mg 3 tab(s), Oral, BID cholecalciferol 1000 intl units (25 microgram) Tab [F] 25 mcg 1 tab(s), Oral, Daily empagliflozin 10 mg Tab UD [F] 10 mg 1 tab(s), Oral, Daily ferrous sulfate 325 mg Tab [F] 325 mg 1 tab(s), Oral, Daily folic acid 1 mg Tab [F] 1 mg 1 tab(s), Oral, Daily gabapentin 600 mg Tab [F] 600 mg 1 tab(s), Oral, TID insulin lispro 100 units/mL (HUMALOG) 10 mL SubQ inj [F] 0-12 Unit(s), SubCutaneous, QIDACHS isosorbide mononitrate 30 mg ER Tab [F] 90 mg 3 tab(s), Oral, qAM lactobacillus acidophilus and bulgaricus Tab [F] 1 tab(s), Oral, QID lamoTRIgine 25 mg Tab [F] 50 mg 2 tab(s), Oral, Every other day linezolid 600 mg Tab [F] 600 mg 1 tab(s), Oral, BID metoprolol 25 mg ER Tab [F] 25 mg 1 tab(s), Oral, Daily pantoprazole [address] Tab [F] 40 mg 1 tab(s), Oral, Daily Patient Specific Meds [F] Normal Patient Dose, Oral, Once a day (at bedtime) piperacillin-tazobactam 4 g-0.5 g + Sodium Chloride 0.9% Minibag 100 mL 4.5 gm 1 EA, IV Piggyback, [id number] potassium chloride 20 mEq ER Tab [F] 60 mEq 3 tab(s), Oral, BID sertraline 25 mg Tab [F] 25 mg 1 tab(s), Oral, Daily spironolactone 50 mg Tab [F] 50 mg 1 tab(s), Oral, Daily Continuous: (0) PRN: (12) Al hydroxide/Mg hydroxide/simethicone 200 mg-200 mg-20 mg/5 mL Oral Susp 30 mL [F] 30 mL, Oral, q6hr albuterol 0.083% Inh Mod[place] 3 mL [F] 2.5 mg 3 mL, Inhalation, q2hr albuterol-ipratropium 2.5 mg-0.5 mg/3 mL SOLN [F] 3 mL, Inhalation, QID dextrose 50% IV [place] 50 mL Abboject [F] 50 mL, IV Push, q15min diazePAM 5 mg Tab [F] 5 mg 1 tab(s), Oral, Once a day (at bedtime) diclofenac topical 1% Gel [F] 1 raymon, Topical, QID glucagon recombinant 1 mg Inj [F] 1 mg 1 EA, IntraMuscular, q15min glucose 15 gm Gel [F] 15 gm 32 mL, Oral, q15min heparin flush 100 units/mL Soln 5 mL [F] 300 unit(s) 3 mL, IV Push, q12hr hydrALAZINE 20 mg/mL Inj [F] 10 mg 0.5 mL, IV Push, q6hr HYDROmorphone 1 mg/mL SOLN [F] 1 mg 1 mL, IV Push, q3hr ondansetron 2 mg/mL Inj [F] 4 mg 2 mL, IV Push, q6hr Problem list: All Problems (Selected) Anxiety / SNOMED CT 60178856 / Confirmed Aortic root dilation / SNOMED CT 076829312 / Confirmed Atrial fibrillation / SNOMED CT 77180256 / Confirmed BPH (benign prostatic hyperplasia) / SNOMED CT 009245391 / Confirmed BPH with urinary obstruction / SNOMED CT 2545175258 / Confirmed BPH without urinary obstruction / SNOMED CT 0527087755 / Confirmed Bipolar disorder / SNOMED CT 97493863 / Confirmed BMI 35.0-35.9,adult / SNOMED CT 655848917 / Confirmed CAD - Coronary artery disease / SNOMED CT 7164615485 / Confirmed Chronic anemia / SNOMED CT 738075900 / Confirmed Chronic diastolic heart failure / SNOMED CT 5766570483 / Confirmed COPD (chronic obstructive pulmonary disease) / SNOMED CT 66614016 / Confirmed COPD without exacerbation / SNOMED CT 32078813 / Confirmed Chronic systolic heart failure / SNOMED CT 1740598272 / Confirmed CHF (congestive heart failure) / SNOMED CT 03679841 / Confirmed Coronary artery disease / SNOMED CT 87932337 / Confirmed DVT (deep venous thrombosis) / SNOMED CT 046387494 / Confirmed Diabetes / SNOMED CT 464470135 / Confirmed Diabetic peripheral neuropathy / SNOMED CT 7231382107 / Confirmed DM - Diabetes mellitus / SNOMED CT 289427184 / Confirmed ESBL 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 / SNOMED CT 6411227863 / Confirmed ESBL E coli in rt foot wound 08/14/2022 Flank pain / SNOMED CT 493010071 / Confirmed Chronic GERD / SNOMED CT 947916275 / Confirmed Personal history of kidney stones / SNOMED CT 1595015957 / Confirmed History of DVT in adulthood / SNOMED CT 7994908833 / Confirmed Hyperlipidemia / SNOMED CT 11975634 / Confirmed Hypertension / SNOMED CT 5253128431 / Confirmed Immune deficiency disorder / SNOMED CT 318923964 / Confirmed Incomplete bladder emptying / SNOMED CT 293809260 / Confirmed Incontinence without sensory awareness / SNOMED CT 29 (more content not included)...[facility] above:Result Comment: Electronically Signed By: Ronaldo Arcos M.D\Date and Time Signed: 01/06/25 09:37 [id number] NoteProgress Note-Nurse patients dressing fell of while having a BM. Nurse offered to re-dress it after bm complete. Patient states can we wait till later I think I have to have another BM again, my belly is gurgiling. Extractor Operator Solvent Process educated patient that wound needs to be cleaned again and have protection over it. Patient states I will call out when I am done having a BM. Extractor Operator Solvent Process notified oncoming nurse that the coccyx wound needs re-dressed as soon as patient is done having another BM. 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 Cellulitis of right leg without foot (L03.115: Cellulitis of right lower limb) 2/2 open wounds -> see pics in media file CT RLE: No concern for abscess or OM -RLE DUS - neg -Pain mgt., supportive care -Elevate, outline area Consult ID: -Wound cx: MRSA -Bl. cx - NGTD -DC clindamycin -Transition IV vanco to po linezolid, cont. IV zosyn Consult ACS: -If there is concern for NSTI would recommend obtaining MRI -EGS to sign off at this time. Please call or reconsult for questions or concerns. Consult wound care: -Apprec drsng orders 2. ISTAP type 2 skin tear of right lower leg (S81.811A: Laceration without foreign body, right lower leg, initial encounter) POA - see pics in media file -Xray: tib/fib: no acute process Consult wound care: -Apprec drsng orders 3. 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 Wound of buttock (S31.042Q: Unspecified open wound of unspecified buttock, initial encounter) New since admission however pt states this area was healed and popped open last night when he turned in bed states this has happened in the past. -> see pics in media file -Donut for sitting from OB -Consider sitz bath unless contraindicated by wound Consult ID: -WCx. - cont. incubation -IV abx as above Consult wound care: -01/05: Subcutaneous and excisional debridement performed at bedside???see attached note -Daily Selvin drng. 5. Anemia (D64.9: Anemia, unspecified) Anemia -Baseline hgb. level - 10 -11 -No acute bleeding noted, hemodynamically stable -Hemoccult stool - pending -Hepatic panel - reviewed -Anemia panel - pending -Trend labs -Outpt. f/u w/ GI for possible scopes - defer to PCP 6. Hypokalemia, (E87.6: Hypokalemia)Hypokalemia Replete K/Mag prn -Trend labs 7. ROBYN on CPAP (G47.33: Obstructive sleep apnea (adult) (pediatric)) + bipap home use 8. Chronic hypoxic respiratory failure (J96.11: Chronic respiratory failure with hypoxia) 2/2 COPD, -Supplemental 02 9. COPD without exacerbation, (J44.9: Chronic obstructive pulmonary disease, unspecified)COPD without exacerbation Denies home 02 use -PFTs: none on file -Home regimen: albuterol -Med nebs, flutter, supplemental 02 10. PAF (paroxysmal atrial fibrillation) (I48.0: Paroxysmal atrial fibrillation) -Apixaban, asa, metoprolol 11. Chronic combined systolic and diastolic heart failure (I50.42: Chronic combined systolic (congestive) and diastolic (congestive) heart failure) Compensated -Home regimen: bumex 3mg BID, farxiga, imdur, metoprolol, spironolactone, -Echo: 07/2024: Moderate to severe LVH, EF greater than 70%, grade 1 DD, no pericardial effusion or significant valvular disease. -CXR: pending -1.8FR ~Diuresis 3.6L to date -Cont. bumex, jardiance, imdur, metoprolol, spironolactone + hypokal - resume home KCL regimen -Strict I&O, -Dry wt: To be determined at discharge -Daily wt: -HF education -Consult cardio FT/HV: if warranted 12. Coronary artery disease (I25.10: Atherosclerotic heart disease of [place] coronary artery without angina pectoris) PCI x 2 - remote -Apixaban, asa, atorvastatin, bumex, farxiga, imdur, metolazone, metoprolol, 13. Hypertension (I10: Essential (primary) hypertension) -Cardiac meds as above 14. Hyperlipidemia (E78.5: Hyperlipidemia, unspecified) -Statin 15. Diabetes (E11.9: Type 2 diabetes mellitus without complications) W/ peripheral neuropathy -Accuchecks AC/HS w/ SSI prn -A1c - pending -Home regimen: Jardiance, metformin, -Hold metformin while inpatient- -Rx. 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 Bipolar disorder (F31.9: Bipolar disorder, unspecified) Stable, denies SI/HI -Abilify, quviviq, sertraline, lamotrigine, 17. Anxiety and depression (F41.9: Anxiety disorder, unspecified) See above 18. Morbid obesity due to excess calories (E66.01: Morbid (severe) obesity due to excess calories) BMI 36 + multiple co-morbid conditions --Educated on need for lifestyle modifications with goal of weight loss as obesity causes a pro- inflamm state resulting in a negative impact on co-morbid conditions. 19. On deep vein thrombosis (DVT) prophylaxis (Z79.899: Other lobsterman (current) drug therapy) -Apixaban Orders: albuterol, 2.5 mg, 3 mL, Soln-Inh, Inhalation, q2hr PRN Shortness of breath or wheezing, Routine, Start date 01/05/25 12:35:00 EDT albuterol-ipratropium, 3 mL, Soln-Inh, Inhalation, QID PRN Shortness of breath or wheezing, Routine, Start date 01/05/25 12:35:00 EDT heparin flush, 300 unit(s) = 3 mL, Soln-IV, IV Push, q12hr PRN Other (see comment) (more content not included)...[facility] on [facility]:Result Comment: Electronically Signed By: Atiya GARDUNO\.br\Date and Time Signed: 01/05/25 12:42 EDT\.br\Electronically Co-Signed By: Atiya GARDUNO\.br\Date and Time Co-Signed: 01/05/25 12:48 EDT\.br\Electronically Co-Signed By: Octavio Walter DO.br\Date and Time Co-Signed:01/05/25 13:54 [id number] NoteProgress Note-Nurse Extractor Operator Solvent Process performed wound care on patients coccyx, right leg and foot. Photos were obtained and in chart. Wound care performed based on orders in chart. notified wound care about clarifying appropriate orders for each wound.[facility]08[facility] NoteMicrobiology PROCEDURE: Wound Culture [R1] SOURCE: Ulcer BODY SITE: Leg R COLLECTED DATE/TIME: 01/02/2025 19:53 EDT RECEIVED DATE/TIME: 01/02/2025 20:11 EDT START DATE/TIME: 01/02/2025 20:11 EDT FREE TEXT SOURCE: IRIS AGEDGAR, IRIS AGEDGAR, Skyla Crum FINAL REPORTS Final Report [] Verified Date/Time: 01/05/2025 10:58 EDT Scant growth of Methicillin-Resistant Staphylococcus aureus MRSA Scant growth of Normal skin adelso isolated Notified Atiya Qiu CUT TO LENGTH OPERATOR of MRSA 01/05/2025 10:58 CSS STAINS Gram Stain Report [] Verified Date/Time: 01/03/2025 12:40 EDT No WBC's seen. Occasional Gram Positive Cocci SUSCEPTIBILITY RESULTS LEGEND: S=Susceptible, N/R=Not Reported, Blank=Data not available, or drug not advisable or tested, I=Intermediate, ESBL=Extended spectrum beta-lactamase, R=Resistant, TFG=Thymidine-dependent strain, REGLA=Beta-lactamase positive, ERYN=mcg/m;(mg/L), S*=Predicted susceptible interp, R*=Predicted resistant interp MRSA Antibiotic ERYN Dilutn ERYN Interp Amoxicillin/ <=4/2 R* Clavulanate Ampicillin >8 R* Ampicillin/ <=8/4 R* Sulbactam Azithromycin >4 R Cefazolin <=8 R* Ceftaroline <=0.5 S Clindamycin >2 R Daptomycin <=1 S Erythromycin >4 R Linezolid <=2 S Oxacillin >2 R Penicillin >8 R* Rifampin <=1 S Tetracycline >8 R Trimethoprim/ <=0.5/9.5 S Sulfa Vancomycin 1 S Performing Locations R1: This test was performed at: [facility], [address] [place] [address], [address] [place] [address], QijavhM[facility] HospitalComment on above:Performed By: #### [id number] #### [facility] [address] [place] [address] [id number] NoteProcedure - Wound Procedure Name Excisional debridement coccygeal wound Consent Written consent Indication Stage III coccygeal wound Pre-Procedure Exam Technique Informed consent: Written informed consent obtained Position: Left lateral decubitus position Perioperative antibiotics: Yes Preoperative timeout: Yes Sterile prep and drape: Yes Site of wound: Coccyx Size of wound:2 x 3 x 0.2 cm clean wound base with scant fibrinous exudate. Excisional debridement performed using scissors Hemostasis: Achieved with direct pressure.[facility]08-[facility] NoteConsultation Note Chief Complaint patient presents with cellulitis to right lower leg with fevers and generalized illness felling. hxdiabetes and multiple foot/toe amputations for infections History of Present Illness 64-year-old male admitted with cellulitis of the right lower extremity also found to have stage IIIcoccygeal wound. CT scan of lower extremity showed no organized abscess or radiographic evidence ofosteomyelitis. He was seen by the infectious diseases service. They have made antibiotic recommendations. Physical Exam Vitals & Measurements T: 36.5 ???C(Axillary) TMIN: 36.4 ???C(Oral) TMAX: 36.7 ???C(Oral) HR: 83(Apical) RR: 16 BP: 155/88SpO2: 99% WT: 126.0 kg Coccygeal wound stage III the 2 x 3 x 0.2 cm right lower extremity wound 8 x 8 x 0.1 cm Assessment/Plan 1. Cellulitis of right leg without foot (L03.115: Cellulitis of right lower limb) 2. ISTAP type 2 skin tear of right lower leg (S81.811A: Laceration without foreign body, right lower leg, initial encounter) Recommend IV antibiotics per ID see current wound care recs in chart 3. History of amputation (Z89.9: Acquired absence of limb, unspecified) 4. Wound of buttock (S31.809A: Unspecified open wound of unspecified buttock, initial encounter) Subcutaneous debridement of wound excisional debridement performed at bedside see attached note also recommend Selvin to wound. Change daily. 5. Hypokalemia (E87.6: Hypokalemia) 6. PAF (paroxysmal atrial fibrillation) (I48.0: Paroxysmal atrial fibrillation) 7. Chronic combined systolic and diastolic heart failure (I50.42: Chronic combined systolic (congestive) and diastolic (congestive) heart failure) 8. Chronic hypoxic respiratory failure (J96.11: Chronic respiratory failure with hypoxia) 9. Coronary artery disease (I25.10: Atherosclerotic heart disease of [place] coronary artery withoutangina pectoris) 10. COPD without exacerbation (J44.9: Chronic obstructive pulmonary disease, unspecified) 11. Diabetes (E11.9: Type 2 diabetes mellitus without complications) 12. Hypertension (I10: Essential (primary) hypertension) 13. Hyperlipidemia (E78.5: Hyperlipidemia, unspecified) 14. ROBYN on CPAP (G47.33: Obstructive sleep apnea (adult) (pediatric)) 15. Bipolar disorder (F31.9: Bipolar disorder, unspecified) 16. Anxiety and depression (F41.9: Anxiety disorder, unspecified) 17. Morbid obesity due to excess calories (E66.01: Morbid (severe) obesity due to excess calories) Attestation Total time spent preparing the chart, conducting of the encounter with the patient and family and time spent documenting, reviewing, and ordering tests was 60 minutes Portions of this record may have been created with voice recognition artificial intelligence software, specifically [employer], [employer] and or [employer]. Substitutions may have occurred due to the inherent limitations of voice recognition and artificial intelligence software. 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 Flank pain History of DVT in adulthood Hyperlipidemia Hypertension Incomplete bladder emptying Incontinence without sensory awareness Morbid obesity due to excess calories Nocturia Obstructive sleep apnea ROBYN on CPAP Osteomyelitis PAF (paroxysmal atrial fibrillation) Personal history of kidney stones Urgency incontinence Urinary retention Historical No qualifying data Procedure/Surgical History Wound debridement (08/13/2022), Incision AND drainage (06/20/2022), Incision AND drainage (05/23/2022), Amputation great toe (04/16/2022), Skin graft (11/02/2019), Amputated toe, Appendectomy, Colonoscopy, Cystoscopy, Gastric bypass. Medications Inpatient Abilify 5 mg Tab, 5 mg= 1 tab(s), Oral, Daily Al hydroxide/Mg hydroxide/simethicone 200 mg-200 mg-20 mg/5 mL oral suspension, 30 mL, Oral, q6hr, PRN aspirin 81 mg Chew Tab, 81 mg= 1 tab(s), Chewed, Daily atorvastatin 40 mg Tab, 80 mg= 2 tab(s), Oral, Daily bumetanide 1 mg Tab, 3 mg= 3 tab(s), Oral, BID cholecalciferol 1000 intl units (25 mcg) oral tablet, 25 mcg= 1 tab(s), Oral, Daily Dextrose 50% Soln-IV, 50 mL, IV Push, q15min, PRN diclofenac topical 1% gel, 1 raymon, Topical, QID, PRN Dilaudid 1 mg/mL injectable solution, 1 mg= 1 mL, IV Push, q3hr, PRN Eliquis 5 mg oral tablet, 5 mg= 1 tab(s), Oral, BID ferrous sulfate 325 mg Tab, 325 mg= 1 tab(s), Oral, Daily folic acid 1 mg Tab, 1 mg= 1 tab(s), Oral, Daily gabapentin 600 mg Tab, 600 mg= 1 tab(s), Oral, TID glucagon recombinant 1 mg Inj, 1 (more content not included)...[facility] HospitalComment on above:Result Comment: Electronically Signed By: Katelyn GILBERT, Mark Abebe\Date and Time Signed: 01/05/25 09:21 [id number] NoteProgress Note-Physician Assessment/Plan PLAN: 1. Cellulitis of right leg without foot (L03.115: Cellulitis of right lower limb) wet/seepage noted. IV Per ID Linezolid PO and IV Zosyn. Blood cultures neg Wound culture prelim Staphylococcus pending. Elevate. RLE X-ray tib/fib negative Venous duplex negative. Consult ID appreciated. Consult surgery/wound care appreciated. CRP elevated Increase pain medication to Dilaudid. 2. ISTAP type 2 skin tear of right lower leg (S81.811A: Laceration without foreign body, right lower leg, initial encounter) POA Dressing orders placed until consult wound care/ pending See #1 3. History of amputation (Z89.9: Acquired absence of limb, unspecified) status post right foot TMA in 01/2023 w/OM. 4. Wound of buttock (S31.809A: Unspecified open wound of unspecified buttock, initial encounter) New since admission however pt states this area was healed and popped open last night when he turned in bed states this has happened in the past. Wound care-consult pending Wound culture sent -pus like drainage from site ID appreciated. Will obtain a donut for sitting from OB Consider sitz bath unless contraindicated by wound. 4. Hypokalemia (E87.6: Hypokalemia) Potassium 3.1 Replaced w/ 40mEq KCL Trend labs and replace as necessary 5. PAF (paroxysmal atrial fibrillation) (I48.0: Paroxysmal atrial fibrillation) Apixaban-resumed now. ASA, Coreg 6. Chronic combined systolic and diastolic heart failure (I50.42: Chronic combined systolic (congestive) and diastolic (congestive) heart failure) chronic combined systolic and diastolic Resume Bumex--per pt takes Orally daily and goes to [facility] 3x week for IV Bumex 3mg as opt. in addition. Continue Entresto Strict I&O, daily weight. Hyponatremia resolved w/diuresis. 7. Chronic hypoxic respiratory failure (J96.11: Chronic respiratory failure with hypoxia) Oxygen as at home. 8. Coronary artery disease (I25.10: Atherosclerotic heart disease of [place] coronary artery withoutangina pectoris) status post stent x2 ASA, Apixaban, Statin, Coreg 9. COPD without exacerbation (J44.9: Chronic obstructive pulmonary disease, unspecified) Spiriva 10. Diabetes (E11.9: Type 2 diabetes mellitus without complications) AccuChecks AC/HS w/ss insulin Farxiga, Ozempic Hold Metformin 11. Hypertension (I10: Essential (primary) hypertension) Spironolactone, Coreg, Bumex , Hydralazine Hydralazine for SPB >160 12. Hyperlipidemia (E78.5: Hyperlipidemia, unspecified) Statin 13. ROBYN on CPAP (G47.33: Obstructive sleep apnea (adult) (pediatric)) Quviviq for insomnia w/CPAP 14. Bipolar disorder (F31.9: Bipolar disorder, unspecified) Abilify 15. Anxiety and depression (F41.9: Anxiety disorder, unspecified) Valium, Abilify 16. Morbid obesity due to excess calories (E66.01: Morbid (severe) obesity due to excess calories) BMI 38.67 Provisioning Analyst on diet, exercise, weight loss and lifestyle modifications. . DVT Prophylaxis: SCDs resume Eliquis Disposition: inpt status will require >2 midnight stays for further work up and treatment of above. Subjective Pt seen while sitting up in recliner. Spouse in room. Pt states swelling to right lower leg is improving. Still w/mod amt of seepage. Denies fevers chills. States pain to RLE is better. Is able to walk today. Coccyx/butt wound not as painful. Cultures pending. Objective Vitals & Measurements T: 36.7 ???C(Oral) TMIN: 36.5 ???C(Oral) TMAX: 36.9 ???C(Oral) HR: 82(Monitored) RR: 18 BP: 132/77 SpO2: 97% WT: 126.0 kg Intake & Output This visit (24 hour periods starting at 07:00 EDT) 01/04/25 * 01/03/25 01/02/25 Total Summary Intake mL 2 312.51 1,058.5 Output mL 900 1,300 -- Fluid Balance -898 -987.49 1,058.5 Intake (8) Sodium Chloride 0.9% mL -- -- 1,000 Sodium Chloride 0.9% intravenous solution 1,000 mL mL -- 301.51 -- Sodium Chloride 0.9%, ceftriaxone mL -- -- 50 bumetanide mL -- 4 -- hydrALAZINE mL -- -- 0.5 hydromorphone mL 2 7 -- morphine mL -- -- 6 ondansetron mL -- -- 2 Total 2 312.51 1,058.5 Output (1) Urine Voided mL 900 1,300 -- Total 900 1,300 -- Counts (0) * This column has not completed the indicated time period. Physical Exam General: NAD Skin: Warm, dry, no pallor noted. 2 well-healed approximate 4 cm vertical surgical scars over the spine. No surrounding erythema. No fluctuance/induration. No drainage. Head: Normocephalic, atraumatic Neck: No JVD. No midline spinal tenderness to palpation, step-off, or crepitus. Eye: PERRLA, 3mm. non icteric. ENT: nares patent, Moist mucus membranes Cardiovascular: Regular rate normal peripheral perfusion Respiratory: No respiratory distress no accessory muscle use no obvious audible wheezing Chest Wall: no deformity Musculoskeletal: normal ROM, no deformity. Diffuse edema and tenderness (more content not included)...[facility] HospitalComment on above:Result Comment: Electronically Signed By: Skyla COWART\.br\Date and Time Signed: 01/04/25 14:55 EDT\.br\Electronically Co-Signed By: Octavio Walter DO.br\Date and Time Co-Signed: 01/04/25 19:47 [id number] NoteProgress Note-Physician CT imaging reviewed. No concerns for abscess or osteomyelitis If there is concern for NSTI would recommend obtaining MRI EGS to sign off at this time. Please call or reconsult for questions or concerns.[facility] HospitalComment on above:Result Comment: Electronically Signed By: Newton BROWN, Loan Matos\.br\Date and Time Signed: 01/03/25 16:35 EDT\.br\Electronically Co-Signed By: Alejandro Wilson MD\.br\Date and Time Co-Signed: 01/04/25 09:39 [id number] NoteProgress Note-Physician Assessment/Plan PLAN: 1. Cellulitis of right leg without foot (L03.115: Cellulitis of right lower limb) wet/seepage noted. Ceftriaxone 2gram IV daily Blood cultures pending. Wound culture pending. Elevate. X-ray tib/fib negative Venous duplex pending. Consult ID pending. Consult surgery/wound care pending. Hold Eliquis today until seen by surgery. CRP elevated Increase pain medication to Dilaudid. 2. ISTAP type 2 skin tear of right lower leg (S81.811A: Laceration without foreign body, right lower leg, initial encounter) POA Dressing orders placed until consult wound care/ pending See #1 3. History of amputation (Z89.9: Acquired absence of limb, unspecified) status post right foot TMA in 01/2023 w/OM. 4. Wound of buttock (S31.809A: Unspecified open wound of unspecified buttock, initial encounter) New since admission however pt states this area was healed and popped open last night when he turned in bed states this has happened in the past. Wound care-consult pending Wound culture sent -pus like drainage from site ID pending WIll obtain a donut for sitting from OB Consider sitz bath unless contraindicated by wound. 4. Hypokalemia (E87.6: Hypokalemia) Potassium 3.4 Replaced w/ 40mEq KCL Trend labs and replace as necessary 5. PAF (paroxysmal atrial fibrillation) (I48.0: Paroxysmal atrial fibrillation) Apixaban-hold for now ASA, Coreg 6. Chronic combined systolic and diastolic heart failure (I50.42: Chronic combined systolic (congestive) and diastolic (congestive) heart failure) chronic combined systolic and diastolic Bumex , Entresto Strict I&O, daily weight. hyponatremia today. poor oral intake. will hold Bumex today and give 1 L IVF cautiously. 7. Chronic hypoxic respiratory failure (J96.11: Chronic respiratory failure with hypoxia) Oxygen as at home. 8. Coronary artery disease (I25.10: Atherosclerotic heart disease of [place] coronary artery withoutangina pectoris) status post stent x2 ASA, Apixaban, Statin, Coreg 9. COPD without exacerbation (J44.9: Chronic obstructive pulmonary disease, unspecified) Spiriva 10. Diabetes (E11.9: Type 2 diabetes mellitus without complications) AccuChecks AC/HS w/ss insulin Farxiga, Ozempic Hold Metformin 11. Hypertension (I10: Essential (primary) hypertension) Spironolactone, Coreg, Bumex , Hydralazine Hydralazine for SPB >160 12. Hyperlipidemia (E78.5: Hyperlipidemia, unspecified) Statin 13. ROBYN on CPAP (G47.33: Obstructive sleep apnea (adult) (pediatric)) Quviviq for insomnia w/CPAP 14. Bipolar disorder (F31.9: Bipolar disorder, unspecified) Abilify 15. Anxiety and depression (F41.9: Anxiety disorder, unspecified) Valium, Abilify 16. Morbid obesity due to excess calories (E66.01: Morbid (severe) obesity due to excess calories) BMI 38.67 Provisioning Analyst on diet, exercise, weight loss and lifestyle modifications. . DVT Prophylaxis: SCDs holding Eliquis for now Disposition: inpt status will require >2 midnight stays for further work up and treatment of above. Subjective Patient seen while sitting up in recliner. States that he had an area with a healed wound on his buttocks right at the base of his coccyx that he heard popped open last night complains of pain. Does have drainage in this place this morning. Will send wound culture. Right lower extremity complains of significant pain worse with elevation. Still swollen this morning tender to touch and seepage. Patient still with fevers and intermittent chills. Denies chest pain, shortness of breath, nausea orvomiting. Objective Vitals & Measurements T: 36.7 ???C(Oral) TMIN: 36.5 ???C(Oral) TMAX: 37.1 ???C(Oral) HR: 110(Apical) RR: 18 BP: 156/73 SpO2: 99% HT: 180.34 cm WT: 120.9 kg Intake & Output This visit (24 hour periods starting at 07:00 EDT) 01/03/25 * 01/02/25 01/01/25 Total Summary Intake mL -- 1,058.5 -- Output mL -- -- -- Fluid Balance -- 1,058.5 -- Intake (5) Sodium Chloride 0.9% mL -- 1,000 -- Sodium Chloride 0.9%, ceftriaxone mL -- 50 -- hydrALAZINE mL -- 0.5 -- morphine mL -- 6 -- ondansetron mL -- 2 -- Total -- 1,058.5 -- Output (0) Counts (0) * This column has not completed the indicated time period. Physical Exam General: NAD Skin: Warm, dry, no pallor noted. 2 well-healed approximate 4 cm vertical surgical scars over the spine. No surrounding erythema. No fluctuance/induration. No drainage. Head: Normocephalic, atraumatic Neck: No JVD. No midline spinal tenderness to palpation, step-off, or crepitus. Eye: PERRLA, 3mm. non icteric. ENT: nares patent, Moist mucus membranes Cardiovascular: Regular rate normal peripheral perfusion Respiratory: No respiratory distress no accessory muscle use no obvious audible wheezing Chest Wall: no deformity Musculoskeletal: normal ROM, no deformity. Diffuse edema and tenderness to p (more content not included)...[facility] HospitalComment on above:Result Comment: Electronically Signed By: Skyla COWART\.br\Date and Time Signed: 01/03/25 10:16 EDT\.br\Electronically Co-Signed By: Javon Edwards DO.br\Date and Time Co-Signed:01/03/25 15:08 [id number] Note Consultation Note Patient: MATT WATERMAN Age: 64 years Sex: Male : 1960 Associated Diagnoses: None Author: Ronaldo Arcos M.D Chief Complaint 01/02/2025 12:03 EDT patient presents with cellulitis to right lower leg with fevers and generalizedillness felling. hx diabetes and multiple foot/toe amputations for infections History of Present Illness 64-year-old morbidly obese male with history of chronic combined systolic and diastolic congestive heart failure, paroxysmal atrial fibrillation on apixaban, coronary artery disease status post stent x2, COPD, obstructive sleep apnea on BiPAP, chronic hypoxic respiratory failure on as needed OXYGEN, [id number] diabetes mellitus, hypertension, hyperlipidemia, bipolar disorder,BPH, anxiety, status post right foot TMA in 01/2023 w/OM. Patient presented with worsening right lower leg cellulitis that has worsened over the last 3-4 days. Pt reports fevers, chills that had been present 10 days prior. Denies N/V/D, CP, SOB. States RLE is painful, has started to have seepage over the last 2 days. His markers inflammation were definitely high in the ER. CT scan has been done that shows no abscess or osteomyelitis. Venous duplex does not show a clot. Patient states has been in the hospital since yesterday and feels the leg is still about the same. Of note he does take Bumex at home orally and IV Bumex 3 times a week per his underpresser hand. He feels his right lower extremity is going more swollen than normal. Hospitalist note mention he is on ceftriaxone but active medications appear to have vancomycin, Zosyn & clindamycin. Review of Systems Constitutional: Negative except as documented in history of present illness. Health Status Allergies: Allergic Reactions (Selected) Severity Not Documented GoLYTELY- Rash. Phenergan- Shortness of breath. Reglan- Twitching and rash. Sulfa drugs- Rash. Current medications: Medications (29) Active Scheduled: (20) ARIPiprazole 5 mg Tab [F] 5 mg 1 tab(s), Oral, Daily aspirin 81 mg Chew Tab [F] 81 mg 1 tab(s), Chewed, Daily atorvastatin 40 mg Tab [F] 80 mg 2 tab(s), Oral, Daily cholecalciferol 1000 intl units (25 microgram) Tab [F] 25 mcg 1 tab(s), Oral, Daily clindamycin 600 mg/50 mL-D5W + Dextrose 5% Premix Diluent 50 mL 600 mg 50 mL, IV Piggyback, q8hr empagliflozin 10 mg Tab UD [F] 10 mg 1 tab(s), Oral, Daily ferrous sulfate 325 mg Tab [F] 325 mg 1 tab(s), Oral, Daily folic acid 1 mg Tab [F] 1 mg 1 tab(s), Oral, Daily gabapentin 600 mg Tab [F] 600 mg 1 tab(s), Oral, TID insulin lispro 100 units/mL (HUMALOG) 10 mL SubQ inj [F] 0-12 Unit(s), SubCutaneous, QIDACHS isosorbide mononitrate 30 mg ER Tab [F] 90 mg 3 tab(s), Oral, qAM lactobacillus acidophilus and bulgaricus Tab [F] 1 tab(s), Oral, QID lamoTRIgine 25 mg Tab [F] 50 mg 2 tab(s), Oral, Every other day metoprolol 25 mg ER Tab [F] 25 mg 1 tab(s), Oral, Daily Patient Specific Meds [F] Normal Patient Dose, Oral, Once a day (at bedtime) piperacillin-tazobactam 4 g-0.5 g + Sodium Chloride 0.9% Minibag 100 mL 4.5 gm 1 EA, IV Piggyback, Once piperacillin-tazobactam 4 g-0.5 g + Sodium Chloride 0.9% Minibag 100 mL 4.5 gm 1 EA, IV Piggyback, [id number] sertraline 25 mg Tab [F] 25 mg 1 tab(s), Oral, Daily vancomycin + Generic Diluent 350 mL 1,750 mg 350 mL, IV Piggyback, q12hr vancomycin PHARMACY TO DOSE [F] PHARMACY TO DOSE, IV, As Directed Continuous: (1) Sodium Chloride 0.9% 1,000 mL 1,000 mL, IV, 100 mL/hr PRN: (8) Al hydroxide/Mg hydroxide/simethicone 200 mg-200 mg-20 mg/5 mL Oral Susp 30 mL [F] 30 mL, Oral, q6hr dextrose 50% IV [place] 50 mL Abboject [F] 50 mL, IV Push, q15min diclofenac topical 1% Gel [F] 1 raymon, Topical, QID glucagon recombinant 1 mg Inj [F] 1 mg 1 EA, IntraMuscular, q15min glucose 15 gm Gel [F] 15 gm 32 mL, Oral, q15min hydrALAZINE 20 mg/mL Inj [F] 10 mg 0.5 mL, IV Push, q6hr HYDROmorphone 1 mg/mL SOLN [F] 1 mg 1 mL, IV Push, q3hr ondansetron 2 mg/mL Inj [F] 4 mg 2 mL, IV Push, q6hr Problem list: All Problems (Selected) Anxiety / SNOMED CT 99725719 / Confirmed Aortic root dilation / SNOMED CT 955423532 / Confirmed Atrial fibrillation / SNOMED CT 28481481 / Confirmed BPH (benign prostatic hyperplasia) / SNOMED CT 090199278 / Confirmed BPH with urinary obstruction / SNOMED CT 3586206279 / Confirmed BPH without urinary obstruction / SNOMED CT 2598491183 / Confirmed Bipolar disorder / SNOMED CT 58038300 / Confirmed BMI 35.0-35.9,adult / SNOMED CT 595933469 / Confirmed CAD - Coronary artery disease / SNOMED CT 5721272500 / Confirmed Chronic anemia / SNOMED CT 265840710 / Confirmed Chronic diastolic heart failure / SNOMED CT 1376974332 / Confirmed COPD (chronic obstructive pulmonary disease) / SNOMED CT 17866380 / Confirmed COPD without exacerbation / SNOMED CT 34098617 / Confirmed Chronic systolic heart failure / SNOMED CT 3100180954 / Confirmed CHF (congestive heart fail (more content not included)...[facility] HospitalComment on above:Result Comment: Electronically Signed By: Ronaldo Arcos M.D\Date and Time Signed: 01/03/25 13:11 [id number] NoteProgress Note - Pharmacy Vancomycin Pharmacy to Dose Consult Note Indication: Skin and Skin Structure Infection Goal Range: AUC/ERYN: 400 - 600 RECOMMENDATIONS/PLAN: Pharmacy consulted for vancomycin dosing for MATT WATERMAN, a 64 Years old, Male who is being treated with vancomycin for cellulitis. 1. VANCO STATUS: Vancomycin therapy is still active, today is day 1 of treatment. Patient is receiving Vancomycin 1750mg IV q12hr. 2. VANCO LEVEL: No Vancomycin level has been drawn for this dosing regimen. 3. DOSING RECS: Initial Dose:1750mg IV q12hr 4. NEXT LEVEL: The next paired levels are scheduled. Peak at 0500 on 01/05 and Trough at 1300 on 01/05. 5. MRSA NASAL SWAB? A MRSA Nasal Swab is not appropriate at this time. We will follow patient renal function, vancomycin levels and doses with you during the course of therapy. Additional recommendations will appear in follow up notes. If you have any questions, please contact the pharmacy at extension [phone]. Age: 64 Years Allergies: Allergies (4) Active Severity Reaction sulfa drugs rash Phenergan Shortness of Breath GoLYTELY rash Reglan Rash, Twitching Weight: Last Documented Weight and Type of Scale Used Last Documented Weight Weight Measured: 120.9 kg (01/03/25 06:00:00) Type of Scale Used Weight Measured Type of Scale: Bed Scale (digital) (01/02/25 18:26:00) Height: Last Documented Height/Length Last Documented Height/Length Height/Length Measured: 180.34 cm (01/02/25 18:26:00) CrCl: 127.15mL/min SCr: 0.8mg/dL Labs: WBC: 10.2 E9/L (01/03/25 06:58:00) RBC: 4.2 E12/L Low (01/03/25 06:58:00) HGB: 10.6 gm/dL Low (01/03/25 06:58:00) Hct: 32.2 % Low (01/03/25 06:58:00) MCV: 77 fL Low (01/03/25 06:58:00) MCH: 25.4 pg Low (01/03/25 06:58:00) MCHC: 33.1 gm/dL (01/03/25 06:58:00) RDW: 21.1 % High (01/03/25 06:58:00) Platelet: 264 E9/L (01/03/25 06:58:00) MPV: 8 fL (01/03/25 06:58:00) Neutro Auto: 83 % High (01/03/25 06:58:00) Lymph Auto: 6.4 % Low (01/03/25 06:58:00) Riley Auto: 9 % (01/03/25 06:58:00) Eos Auto: 0 % (01/03/25 06:58:00) Basophil Auto: 1.6 % (01/03/25 06:58:00) Neutro Absolute: 8.5 E9/L High (01/03/25 06:58:00) Lymph Absolute: 0.7 E9/L Low (01/03/25 06:58:00) Riley Absolute: 0.9 E9/L (01/03/25 06:58:00) Eos Absolute: 0 E9/L (01/03/25 06:58:00) Basophil Absolute: 0.2 E9/L (01/03/25 06:58:00) Sed Rate Automated: 64 mm/hr High (01/02/25 13:53:00) PT: 12.7 second(s) High (01/02/25 13:53:00) INR: 1.13 (01/02/25 13:53:00) PTT: 24.7 second(s) Low (01/02/25 13:53:00) Glucose Lvl: 134 mg/dL (01/03/25 06:58:00) BUN: 19 mg/dL (01/03/25 06:58:00) Creatinine: 0.8 mg/dL (01/03/25 06:58:00) eGFR: 99 mL/min/1.73 m2 (01/03/25 06:58:00) BUN/Creat Ratio: 24 High (01/03/25 06:58:00) Sodium Lvl: 130 mmol/L Low (01/03/25 06:58:00) Potassium Lvl: 3.4 mmol/L Low (01/03/25 06:58:00) Chloride: 98 mmol/L Low (01/03/25 06:58:00) CO2: 24 mmol/L (01/03/25 06:58:00) AGAP: 11 mEq/L (01/03/25 06:58:00) Calcium Lvl: 8.5 mg/dL Low (01/03/25 06:58:00) Alk Phos: 66 Int._Unit/L (01/02/25 13:53:00) ALT: 21 Int._Unit/L (01/02/25 13:53:00) AST: 20 Int._Unit/L (01/02/25 13:53:00) Total Protein: 6.8 gm/dL (01/02/25 13:53:00) Albumin Lvl: 3.2 gm/dL Low (01/02/25 13:53:00) Globulin: 3.6 gm/dL (01/02/25 13:53:00) A/G Ratio: 0.9 Low (01/02/25 13:53:00) Bili Total: 1.3 mg/dL High (01/02/25 13:53:00) Lactic Acid Lvl: 1.4 mmol/L (01/02/25 13:53:00) CRP: 23.8 mg/dL High (01/02/25 13:53:00) Troponin HS: 8.6 pg/mL Low (01/02/25 13:53:00) BNP: 63 pg/mL (01/02/25 13:53:00) Glucose Cap: 139 mg/dL High (01/03/25 07:37:00) POC Device SN: [id number] (01/03/25 07:37:00) POC User ID: [id number] (01/03/25 07:37:00) POC Username: POC Username (01/03/25 07:37:00) vancomycin was discontinued. all labs discontinued as wellM[facility]08[facility] NoteConsultation Note ACUTE CARE SURGERY CONSULT / H&P Patient Name: MATT WATERMAN Admission Date: 01/02/2025 12:01:34 Patient seen and examined on 01/03/2025 10:20:50 HISTORY OF PRESENT ILLNESS MATT WATERMAN is a 64 Years-old Male with a PMHx of T2DM, A-fib on Eliquis, ROBYN and CHF is admitted to the Medicine service for cellulitis for RLE. Our EGS was consulted for surgical evaluation. Patient reports he was prompted to seek care in the ED yesterday for sevre RLE pain and weeping. States it feels like a firecracker went off in my leg . Denies fever or chills. PAST MEDICAL HISTORY: No qualifying data available. PAST SURGICAL HISTORY: Wound debridement of foot, Right: 08/13/22 Incision AND drainage foot R, Right: 06/20/22 Incision AND drainage of foot wound, Right: 05/23/22 Amputation great toe, Right: 04/16/22 Skin graft: 11/02/19 Colonoscopy Gastric bypass Appendectomy Amputated toe PRE-ADMISSION MEDICATIONS: apixaban: 5 mg = 1 tab(s), Oral, BID aripiprazole: 5 mg = 1 tab(s), Oral, Daily aspirin: 81 mg = 1 tab(s), Chewed, Daily atorvastatin: 80 mg = 1 tab(s), Oral, Daily bumetanide: 3 mg = 3 tab(s), Oral, BID cholecalciferol: 25 mcg, Oral, Daily dapagliflozin: 10 mg = 1 tab(s), Oral, Daily daridorexant: 25 mg = 1 tab(s), Oral, Bedtime, PRN (Insomnia) diazepam: 5 mg = 1 tab(s), Oral, Once a day (at bedtime) diclofenac topical: 1 raymon, Topical, QID, PRN (for pain) divalproex sodium: 1,000 mg = 2 tab(s), Oral, BID ergocalciferol: 1,250 mcg, Oral, qWeek ferrous sulfate: 325 mg, Oral, Daily finasteride: 5 mg = 1 tab(s), Oral, Daily folic acid: 1 mg, Oral, Daily gabapentin: 600 mg, Oral, TID isosorbide mononitrate: 30 mg = 1 tab(s), Oral, qAM lamotrigine: 50 mg, Oral, Daily metformin: 500 mg = 1 tab(s), Oral, BID methotrexate: 17.5 mg, Oral, qWeek metoprolol: 25 mg, Oral, Daily naloxone: 4 mg, Nasal, Once nitroglycerin: 1 tab(s), SubLingual, q5min, PRN (Chest pain) oxycodone: 18 mg = 1 cap(s), Oral, q12hr prednisoLONE ophthalmic: 1 drop, Eye-Both, BID semaglutide: See Instructions, 1 mg subcutaneous weekly (Thursday) sertraline: 25 mg, Oral, Daily spironolactone: 25 mg, Oral, Daily tamsulosin: 0.4 mg = 1 cap(s), Oral, Daily tiotropium: 18 mcg = 1 cap(s), Inhalation, Daily, Using only ONE capsule, have the patient inhale twice valacyclovir: 1 gm, Oral, BID ALLERGIES: Allergies (4) Active Severity Reaction sulfa drugs rash Phenergan Shortness of Breath GoLYTELY rash Reglan Rash, Twitching SOCIAL HISTORY: Social & Psychosocial History Social History Alcohol Denies Alcohol Use Comment: pt denies (11/30/2021 15:14 - Aki Mancuso RN) Substance Abuse Denies Substance Abuse Comment: denies (11/30/2021 15:14 Aki Mohan RN) Tobacco Denies Tobacco Use Former smoker, quit more than 30 days ago Tobacco Use:. Former smoker, quit more than 30 days ago Tobacco Use:. Cigarettes Psychosocial History No active psychosocial history has been recorded FAMILY HISTORY: Father: Stroke Mother: Anemia Brother: Alcoholism; Heart disease; High cholesterol; Hypertension; Stroke Sister: Arthritis; Heart disease; High cholesterol; Hypertension REVIEW OF SYSTEMS Constitutional: no? fever, no? chills, no? sweats, no? weakness. Skin: no? Jaundice, no? rash, no? lesions, no? petechiae. ENMT: no? ear pain, no? sore throat, no? congestion, no? hoarseness. Respiratory: no? shortness of breath, no? cough, no? orthopnea, no? wheezing. Cardiovascular: no? chest pain, no? palpitations, no? edema. Gastrointestinal: no? nausea, no? vomiting, no? diarrhea, no? GI bleeding. Genitourinary: no? dysuria, no? hematuria, no? discharge, no? pain. Musculoskeletal: no? back pain, no? trauma. Neurologic: no? headache, no? dizziness, no? numbness, no? weakness. Psychiatric: no? sleeping problems, no? irritability, no? mood swings/depression. Heme/Lymph: no? bleeding tendency, no? bruising tendency, no? petechiae, no? swollen lymph nodes Allergy/Immunologic: Seasonal allergies, no? food allergies, no? recurrent infections, no? impairedimmunity PHYSICAL EXAM General: alert?, no acute? distress Skin: warm?, dry? Head: no? trauma, normocephalic? Neck: Trachea midline?, no? adenopathy, no? tenderness Eye: normal? conjunctiva, sclera clear? ENMT: TM???s clear?, oral mucosa moist?, no? pharyngeal erythema or exudate Cardiovascular: regular? rate and rhythm, normal? peripheral perfusion Respiratory: Lungs CTA?,respirations non labored? Chest wall: no? deformity. Gastrointestinal: soft?, non distended?, no? tenderness, no? guarding. Back: No? ten (more content not included)...[facility] HospitalComment on above:Result Comment: Electronically Signed By: Loan Glez PA-C\.br\Date and Time Signed: 01/03/25 11:12 EDT\.br\Electronically Co-Signed By: Loan Glez PA-C.br\Date and Time Co-Signed: 01/03/25 11:12 EDT\.br\Electronically Co-Signed By: Alejandro Wilson MD\.br\Date and Time Co-Si gned: 01/03/25 12:16 [id number] NoteHistory and Physical Basic Information Admit Date/Time:01/02/2025 17:42 Chief Complaint patient presents with cellulitis to right lower leg with fevers and generalized illness felling. hxdiabetes and multiple foot/toe amputations for infections History of Present Illness 64-year-old morbidly obese male with history of chronic combined systolic and diastolic congestive heart failure, paroxysmal atrial fibrillation on apixaban, coronary artery disease status post stent x2, COPD, obstructive sleep apnea on BiPAP, chronic hypoxic respiratory failure on as needed OXYGEN, xlp-tjdkrho-suqzjykot diabetes mellitus, hypertension, hyperlipidemia, bipolar disorder,BPH, anxiety, status post right foot TMA in 01/2023 w/OM. Pt presented to the hospital with worsening right lower leg cellulitis that has worsened over the last 3-4 days. Pt reports fevers, chills. Denies N/V/D, CP, SOB. States RLE is painful, has started to have seepage over the last 2 days. Now w/edema worsening. Erythema. In the ED pt was found to have significantly elevated CRP at 23.8 along with CRP of 64. Potassium slightly decreased at 3.2, patient is given oral potassium replacement. An x-ray of the right tib fibwas negative. A right venous duplex was pending. Pt was started on IV Ceftriaxone and referred to the hospitalist group for further work up and treatment of above. Review of Systems Additional ROS info: Except as noted in the above Review of Systems and in the History of Present Illness all other systems have been reviewed and are negative or noncontributory. Scoring Campos Fall Risk Score: 60 High (01/02/25) Physical Exam Vitals & Measurements T: 36.5 ???C(Oral) TMIN: 36.5 ???C(Oral) TMAX: 36.7 ???C(Oral) HR: 88(Peripheral) RR: 18 BP: 196/83SpO2: 98% HT: 180.34 cm WT: 119.295 kg General: NAD Skin: Warm, dry, no pallor noted. 2 well-healed approximate 4 cm vertical surgical scars over the spine. No surrounding erythema. No fluctuance/induration. No drainage. Head: Normocephalic, atraumatic Neck: No JVD. No midline spinal tenderness to palpation, step-off, or crepitus. Eye: PERRLA, 3mm. non icteric. ENT: nares patent, Moist mucus membranes Cardiovascular: Regular rate normal peripheral perfusion Respiratory: No respiratory distress no accessory muscle use no obvious audible wheezing Chest Wall: no deformity Musculoskeletal: normal ROM, no deformity. Diffuse edema and tenderness to palpation to the right lower extremity extending from the knee to ankle. Negative Homans' sign. Chronic bilateral venous stasis. 5 cm x 2 cm linear region of erythema and increased warmth just inferior to the right knee. No f luctuance. Erythema is not circumferential. No lymphadenitis. 5 cm skin tear overlying the mid right fibula with mild clear drainage. Status post right toe amputations. Neurovascularly intact. GI: Soft no obvious distention. No rebound or rigidity. No guarding. No tenderness. Neurological: A&O moves all extremities equal strength and symmetry Psychiatric: Cooperative and appropriate Lab Results WBC: 10.1 E9/L (01/02/25 13:53:00) RBC: 4.3 E12/L (01/02/25 13:53:00) HGB: 11.1 gm/dL Low (01/02/25 13:53:00) Hct: 32.4 % Low (01/02/25 13:53:00) MCV: 76.3 fL Low (01/02/25 13:53:00) MCH: 26.2 pg Low (01/02/25 13:53:00) MCHC: 34.3 gm/dL (01/02/25 13:53:00) RDW: 21 % High (01/02/25 13:53:00) Platelet: 243 E9/L (01/02/25 13:53:00) MPV: 7.7 fL (01/02/25 13:53:00) Neutro Auto: 85.4 % High (01/02/25 13:53:00) Lymph Auto: 6.3 % Low (01/02/25 13:53:00) Riley Auto: 7.4 % (01/02/25 13:53:00) Eos Auto: 0 % (01/02/25 13:53:00) Basophil Auto: 0.9 % (01/02/25 13:53:00) Neutro Absolute: 8.7 E9/L High (01/02/25 13:53:00) Lymph Absolute: 0.6 E9/L Low (01/02/25 13:53:00) Riley Absolute: 0.7 E9/L (01/02/25 13:53:00) Eos Absolute: 0 E9/L (01/02/25 13:53:00) Basophil Absolute: 0.1 E9/L (01/02/25 13:53:00) Sed Rate Automated: 64 mm/hr High (01/02/25 13:53:00) PT: 12.7 second(s) High (01/02/25 13:53:00) INR: 1.13 (01/02/25 13:53:00) PTT: 24.7 second(s) Low (01/02/25 13:53:00) Glucose Lvl: 133 mg/dL (01/02/25 13:53:00) BUN: 17 mg/dL (01/02/25 13:53:00) Creatinine: 0.8 mg/dL (01/02/25 13:53:00) eGFR: 99 mL/min/1.73 m2 (01/02/25 13:53:00) BUN/Creat Ratio: 21 High (01/02/25 13:53:00) Sodium Lvl: 133 mmol/L Low (01/02/25 13:53:00) Potassium Lvl: 3.2 mmol/L Low (01/02/25 13:53:00) Chloride: 98 mmol/L Low (01/02/25 13:53:00) CO2: 28 mmol/L (01/02/25 13:53:00) AGAP: 10 mEq/L (01/02/25 13:53:00) Calcium Lvl: 8.6 mg/dL Low (01/02/25 13:53:00) Alk Phos: 66 Int._Unit/L (01/02/25 13:53:00) ALT: 21 Int._Unit/L (01/02/25 13:53:00) AST: 20 Int._Unit/L (01/02/25 13:53:00) Total Protein: 6.8 gm/dL (01/02/25 13:53:00) Albumin Lvl: 3.2 gm/dL Low (01/02/25 13:53:00) Globulin: 3.6 gm/dL (01/02/25 13:53:00) A/G Ratio: 0.9 Low (01/02/25 13:53:00) Bili Total: 1.3 mg/dL High (01/02/25 13:53:00) Lactic Acid Lvl: 1.4 mmol/L (01/02/25 13:53:00) CRP: 23 (more content not included)...[facility] HospitalComment on above:Result Comment: Electronically Signed By: Skyla COWART\.br\Date and Time Signed: 01/02/25 18:57 EDT\.br\Electronically Co- Signed By: Javon Edwards DO\.br\Date and Time Co-Signed:01/03/25 07:07 [id number] History of Present illness Narrative* Laz Romo MD - 12/28/2024 1:30 PM EDT Matt Beck is a 64 y.o. male No ref. provider found presents with chief complaint of Diabetes and Follow-up HPI: IM : 12/2024 follow up visit on A1c 5.8, bg 117, on metformin 500 mg bid, Ozempic 1 mg weekly, Tguickj27 mg once a day.he just left the hospital for leg edema. IM : 08/2024 follow up visit on 08/31/2024 A1c 5.7, bg 133, on metformin 500 mg bid, Ozempic 1 mg weekly, Enlultu96 mg once a day by his underpresser hand, he recently diagnosed with lymphoma, plan to go to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 bedtime for insomniaUnSelect [facility]03-24-2025 NoteCoccyx wound, chronic, POA Turn every 2 hours, dolphin bed ordered by nursingSelect [facility]03-24-2025 NoteUn[facility]03-24-2025 Note [facility]03-24-2025 NoteUn[facility]03-24-2025 NoteUn[facility]03-24-2025 NoteDISCHARGE PLANNING NOTE At the request of patient, SNF referrals were placed to [facility] and [facility] via [facility]. Awaiting replies.[facility] 08-01-2024 NoteUn[facility]03-24-2025 NoteUn[facility]03-24-2025 NoteUn[facility] 07-31-2024 NoteUn[facility]03-23-2025 NoteCurrently in NSR, PACs. Per neurosurgery, hold Eliquis for 1 more dayUn[facility] 07-31-2024 NoteUn[facility]03-23-2025 NoteContinue lipitor, SSI ACHS, hold metformin Diabetic cardiac dietUn[facility]03-23-2025 NoteReactive due to surgery yesterday. Monitor for acute signs of infection.[facility] 07-31-2024 NoteContinue finasteride, FlomaxUnSelect [facility] 07-31-2024 NoteContinue Bumex, metoprolol, lipitor, aldactone Hold Farxiga and Entresto for surgery. Daily weights Intake and output, strictUnSelect [facility]03-23-2025 Note Continue valproate for bipolar disorder Continue Quviviq 50 mg at bedtime for insomniaUn[facility]03-23-2025 NoteCoccyx wound, chronic, POA Turn every 2 hours, dolphin bed ordered by nursingUn[facility]03-23-2025 NoteUn[facility]03-23-2025 Note [facility]03-23-2025 NoteUn[facility]03-22-2025 NoteContinue lipitor, SSI ACHS, hold metformin Diabetic cardiac [facility]03-22-2025 NoteCoccyx wound, chronic, POA Turn every 2 hours, dolphin bed ordered by nursingSelect [facility]ty [facility]03-22-2025 NoteCurrently in NSR, holding eliquis for potential surgery [facility]03-22-2025 NoteContinue metoprolol, lipitor, aldactone Hold Farxiga and Entresto for surgery today. Hold Bumex. Daily weights Intake and output, [facility]03-22-2025 Note Continue sertraline, onoUC [facility] Center03-22-2025 Note [facility]03-22-2025 NoteContinue finasteride, Flomax [facility]03-22-2025 NoteUn[facility]03-22-2025 NoteUn[facility]03-21-2025 Note [facility]03-21-2025 NoteContinue finasteride, Flomax [facility]03-21-2025 NoteContinue lipitor, SSI ACHS, hold metformin Diabetic cardiac [facility] centerUn[facility]03-21-2025 NoteCurrently in NSR, holding eliquis for potential surgeryUn[facility]03-21-2025 NoteSelect [facility]03-21-2025 NoteContinue bumex, metoprolol, lipitor, aldactone Hold Farxiga and Entresto for surgery tomorrow. Daily weights Intake and output, [facility]03-21-2025 Note Continue sertraline, onoUC Medical Center03-21-2025 Note Coccyx wound, chronic, POA Turn every 2 hours, dolphin bed ordered by nursingSelect [facility]03-21-2025 NoteSelect [facility]ty [facility]03-21-2025 Note [facility]03-21-2025 NoteNeurology Brief Update Note - reviewed with the Primary service, will re-evaluate 08/01/2024, please call sooner if there are any questionsSelect Medical Specialty [facility]03-21-2025 NoteMicrobiology PROCEDURE: Wound Culture [R1] SOURCE: Wound BODY SITE: Buttock COLLECTED DATE/TIME: 07/26/2024 16:46 EDT RECEIVED DATE/TIME: 07/26/2024 19:43 EDT START DATE/TIME: 07/26/2024 19:43 EDT FREE TEXT SOURCE: Katelyn GILBERT, Mark Zepeda MD, Mark Tavares FINAL REPORTS Final Report [] Verified Date/Time: 07/29/2024 13:23 EDT Scant growth of Escherichia coli 2+ Gram Positive Rods resembling diphtheroids Scant growth of Bacteroides species Presumptive STAINS Gram Stain Report [] Verified Date/Time: 07/27/2024 12:41 EDT No WBC's seen. Occasional epithelial cells Occasional Gram Positive Rods SUSCEPTIBILITY RESULTS LEGEND: S=Susceptible, N/R=Not Reported, Blank=Data not available, or drug not advisable or tested, I=Intermediate, ESBL=Extended spectrum beta-lactamase, R=Resistant, TFG=Thymidine-dependent strain, REGLA=Beta-lactamase positive, ERYN=mcg/m;(mg/L), S*=Predicted susceptible interp, R*=Predicted resistant interp EC Antibiotic ERYN Dilutn ERYN Interp Ampicillin <=8 S Ampicillin/ <=8/4 S Sulbactam Aztreonam <=4 S Cefazolin <=2 S Cefepime <=2 S Ceftazidime <=1 S Ceftazidime/ <=8 S Avibactam Ceftriaxone <=1 S Cefuroxime <=4 S Ciprofloxacin <=0.25 S Ertapenem <=0.5 S Gentamicin <=2 S Levofloxacin <=0.5 S Meropenem <=1 S Piperacillin/ <=8 S Tazobactam Tetracycline <=4 S Tobramycin <=2 S Trimethoprim/ <=2/38 S Sulfa Performing Locations R1: This test was performed at: [facility], [address] [place] [address], [id number] [place] [address], RwppczMccullough-Hyde Memorial HospitalComment on above:Performed By: #### [id number] #### [facility] [address] [place] [address] [id number] NoteMicrobiology PROCEDURE: Wound Culture [R1] SOURCE: Wound BODY SITE: Buttock COLLECTED DATE/TIME: 07/26/2024 16:46 EDT RECEIVED DATE/TIME: 07/26/2024 19:43 EDT START DATE/TIME: 07/26/2024 19:43 EDT FREE TEXT SOURCE: Katelyn GILBERT, Mark Zepeda MD, Makr Tavares FINAL REPORTS Final Report [] Verified Date/Time: 07/29/2024 13:23 EDT Scant growth of Escherichia coli 2+ Gram Positive Rods resembling diphtheroids Scant growth of Bacteroides species Presumptive STAINS Gram Stain Report [] Verified Date/Time: 07/27/2024 12:41 EDT No WBC's seen. Occasional epithelial cells Occasional Gram Positive Rods SUSCEPTIBILITY RESULTS LEGEND: S=Susceptible, N/R=Not Reported, Blank=Data not available, or drug not advisable or tested, I=Intermediate, ESBL=Extended spectrum beta-lactamase, R=Resistant, TFG=Thymidine-dependent strain, REGLA=Beta-lactamase positive, ERYN=mcg/m;(mg/L), S*=Predicted susceptible interp, R*=Predicted resistant interp EC Antibiotic ERYN Dilutn ERYN Interp Ampicillin <=8 S Ampicillin/ <=8/4 S Sulbactam Aztreonam <=4 S Cefazolin <=2 S Cefepime <=2 S Ceftazidime <=1 S Ceftazidime/ <=8 S Avibactam Ceftriaxone <=1 S Cefuroxime <=4 S Ciprofloxacin <=0.25 S Ertapenem <=0.5 S Gentamicin <=2 S Levofloxacin <=0.5 S Meropenem <=1 S Piperacillin/ <=8 S Tazobactam Tetracycline <=4 S Tobramycin <=2 S Trimethoprim/ <=2/38 S Sulfa Performing Locations R1: This test was performed at: [facility], [address] [place] [address], [id number] , , RrcomiMccullough-Hyde Memorial HospitalComment on above:Performed By: #### [id number] #### [facility] [address] [place] [address] [id number] NoteSelect [facility]03-20-2025 NoteUn[facility]03-20-2025 NoteContinue lipitor, SSI ACHS, hold metformin Diabetic cardiac dietUnSelect [facility]03-20-2025 NoteDiscussed with neurosurgery, they stated patient's bilateral lower extremity weakness does not coincide with his spinal stenosis, recommended neurology evaluation. Neurosurgery consulted, recommended holding eliquis and asa Okay for diet todayUn[facility]03-20-2025 NoteContinue finasteride, FlomaxUn[facility]03-20-2025 NoteUn[facility]03-20-2025 NoteUn[facility] 07-28-2024 NoteCurrently in NSR, holding eliquis for potential surgeryUn[facility]03-20-2025 NoteContinue bumex, farxiga, metoprolol, lipitor, entresto, aldactone Daily weights Intake and output, strictUnSelect [facility]03-20-2025 Note Continue sertraline, klonopinUn[facility]03-20-2025 Note Coccyx wound, chronic, POA Turn every 2 hours, dolphin bed ordered by nursingUn[facility]03-20-2025 NoteSelect [facility]03-20-2025 Note [facility]03-20-2025 NoteUn[facility]03-20-2025 NoteUn[facility]03-20-2025 NoteProgress Note-Physician Basic Information 63-year-old male with past medical history positive for diastolic heart failure, PAF, CAD with prior PCI, COPD, diabetes, hypertension hyperlipidemia, bipolar, history of DVT and past, osteomyelitis status post right TMA, and morbid obesity currently admitted for progressive lower extremity pain Assessment/Plan 1. Bilateral leg pain (M79.604: Pain in right leg) Patient has recent diagnosis of CRPS (complex regional pain syndrome), started on gabapentin CRP normal, Sed Rate slightly elevated Lumbar Spine MRI: Lumbar spondylosis and disc disease per official read, see below -Venous Duplex and Venous Insufficiency studies negative -PVRs negative -PRN oxycodone -PT/OT have seen and recommending SNF Neurology consult: Exam reveals a T11 sensory level and he complains of noxious paresthesias and sensory decrement throughout bilateral lower extremities completely; thoracic spine is checked out. Gavino developed a new urinary incontinence issue, and has sensory changes in his groin region, and might be retaining urine today. MRI of his lumbar spine (without contrast) shows severe central canal stenosis at L4-5 mostly due to posterior epidural lipomatosis (looks worst at series 10 image 33); strongly consider cauda equina syndrome related to that (legs weak, legs painful, sensory loss in legs, new urinary incontinence, possible urinary retention). I do not think there is compressive effecton his conus medullaris. He has recent toe amputations due to osteomyelitis; also consider epiduralabscess. -No neurosurgical coverage at [facility], did discuss this with patient- he and his would like transferred care to [facility] -Spoke with neurosurgery, Dr Damon, who accepts transfer with admit to hospitalist; recommendedobtaining a cervical spine MRI in addition to thoracic, this is ordered -Spoke with esly Keyes under Dr Holland 2. Urinary retention (R33.9: Retention of urine, unspecified) Patient reports 2 episodes of large incontinence last evening, this am was unable to void -Bladder scan for > 1000cc, but able to void 725 cc -Patient declines Woods insertion, will continue with bladder scan/PVRs 3. Chest pain (R07.9: Chest pain, unspecified) Atypical with negative cardiac enzymes, non-acute ECG. Echocardiogram: Moderate to severe LVH, EF > 70%, LV wall motion normal, grade I DD, No significant valve disease -Plan for out patient stress test if echo normal, unless clinically worsens 4. Venous stasis dermatitis (I87.2: Venous insufficiency (chronic) (peripheral)) Present on BLE -Elevate LE -Venous Duplex, Insufficiency studies pending -Dr Zepeda has seen: Recommend compression with double Tubigrip's elevate legs above the level of the heart would obtain PVRs and ABIs to assess status of arterial inflow prior to higher levels of compression. We have also ordered a bilateral venous insufficiency study to assess for venous reflux 5. Diastolic congestive heart failure (I50.30: Unspecified diastolic (congestive) heart failure) Initially concern for acute on chronic diastolic heart failure contributing to volume overload, worsening swelling to LE BNP slightly elevated, CXR negative Bumex 3 mg BID, Coreg and Entresto BID -With hyperdynamic LV on echo, do not feel this is acute decompensation 6. PAF (paroxysmal atrial fibrillation) (I48.0: Paroxysmal atrial fibrillation) Eliquis 2.5 mg BID (dosed this way per his underpresser hand due to bleeding to foot) 7. Coronary artery disease (I25.10: Atherosclerotic heart disease of [place] coronary artery withoutangina pectoris) CAD with history of prior PCI GDMT: asa, statin, beta shayan, Imdur 8. COPD mixed type (J44.9: Chronic obstructive pulmonary disease, unspecified) No acute exacerbation present 9. ROBYN (obstructive sleep apnea) (G47.33: Obstructive sleep apnea (adult) (pediatric)) Supportive care 10. Diabetes type 2 (E11.9: Type 2 diabetes mellitus without complications) Uncontrolled, A1C 7.7 Will hold metformin -AccuCheck AC/HS with SSI 11. Hypertension (I10: Essential (primary) hypertension) BP is normotensive 12. Hyperlipidemia (E78.5: Hyperlipidemia, unspecified) Atorvastatin 13. Bipolar disorder (F31.9: Bipolar disorder, unspecified) Clinically stable 14. History of DVT in adulthood (Z86.718: Personal history of other venous thrombosis and embolism) On low dose Eliquis due to recent bleeding issues related to his right foot 15. History of osteomyelitis (Z87.39: Personal history of other diseases of the musculoskeletal system and connective tissue) s/p right TMA Wound looks free of infection. He does have some slough present medially but it does not appear purulent. Also has a small tunneling area laterally which patient states is known 16. Decubitus ulcer of coccyx (L89.159: Pressure ulcer of sacral region, unspecified stage) Pressure ulcer, present on admit Stage III with tunneling -Consult wound- Dr Zepeda (more content not included)...[facility] HospitalComment on above:Result Comment: Electronically Signed By: Zuri Almendarez CNP.domenic\Date and Time Signed: 07/26/24 14:38 EDT\.br\Electronically Co-Signed By: Juarez Whyte III, DO\Date and Time Co-Signed: 07/28/24 07:23 [id number] NoteDischarge Summary Admission and Discharge Information Admit Date/Time:07/24/2024 19:49 Admitting Physician - Mimi COLIN MD Consulting Physician - Karin Granger MD [facility] Wound, XXXX Admitting Diagnoses: 3. Chest pain, 07/23/2024 Discharge Diagnoses 1. Bilateral leg pain, 07/23/2024 2. Urinary retention, 07/26/2024 3. Chest pain, 07/23/2024 4. Venous stasis dermatitis, 07/23/2024 5. Diastolic congestive heart failure, 07/23/2024 6. PAF (paroxysmal atrial fibrillation), 07/23/2024 7. Coronary artery disease, 07/23/2024 8. COPD mixed type, 07/23/2024 9. ROBYN (obstructive sleep apnea), 07/23/2024 10. Diabetes type 2, 07/23/2024 11. Hypertension, 07/23/2024 12. Hyperlipidemia, 07/23/2024 13. Bipolar disorder, 07/23/2024 14. History of DVT in adulthood, 07/23/2024 15. History of osteomyelitis, 07/23/2024 16. Decubitus ulcer of coccyx, 07/24/2024 Matt Waterman is a 63-year-old male with past medical history positive for CAD with prior PCI, chronic diastolic heart failure, hypertension, hyperlipidemia, diabetes, bipolar disorder, prior DVT, osteomyelitis of right foot status post right TMA in 2022, morbid obesity. History of severe decubitus ulcer to coccyx, currently stage III chronic wound. Patient receives much of his care from [facility]. Patient presented to [facility] ER 07/23/2024 with complaints of progressive lower extremity weakness, pain. Patient has recent diagnosis of CRPS and was started on gabapentin. On arrival, patient is hemodynamically stable without significant laboratory abnormalities. CRP was normal, slight sed rate only slightly elevated. Patient was admitted to hospital service for further evaluation. Patienthad PVRs, venous duplex/venous insufficiency studies all of which were negative. Patient had a lumbar spine MRI which reported lumbar spondylosis and disc disease per official read. Neurology was consulted for ongoing/worsening lower extremity weakness. Patient experienced urinary incontinence and urinary retention. Neurology felt patient had severe central canal stenosis at L4-L5, due to posterior epidural lipomatosis. Neuro concern for cauda equina. Recommended transfer to facility with neurosurgery. Neurologist ordered thoracic spine MRI which was completed and revealed mild to moderate central spinal stenosis and marked right neural foraminal narrowing T11-T12. On 07/26/[address] Damon of [facility], neurosurgery. Surgeon accepts the patient. Spoke with hospitalist team, Stephy, and patient is accepted for transfer under Dr. Holland. Neurosurgeon had recommended obtaining cervical spine MRI without contrast, patient did not tolerate further imaging this was done. Patient did have slight JAY on 07/27, likely related to over diuresis. His diuretics were placed on hold. Patient was transferred to [facility] in hemodynamically stable condition. Further care as per providers to tertiary care. Procedure History Wound debridement (08/13/2022), Incision AND drainage (06/20/2022), Incision AND drainage (05/23/2022), Amputation great toe (04/16/2022), Skin graft (11/02/2019), Amputated toe, Appendectomy, Colonoscopy, Cystoscopy, Gastric bypass. Hospital Course Significant Findings (07/23/2024 14:29 EDT XR Chest Single View) IMPRESSION: NO ACUTE CARDIOPULMONARY DISEASE. [2] (07/25/2024 11:50 EDT MRI Spine Lumbar w/o Contrast) IMPRESSION: LUMBAR SPONDYLOSIS AND DISC DISEASE, DESCRIBED IN DETAIL. [3] (07/25/2024 14:03 EDT US PVR Lower EXT Complete Bilat) IMPRESSION: NO EVIDENCE OF SIGNIFICANT ARTERIAL STENOTIC DISEASE INVOLVING THE RIGHT AND LEFT LEGS. [4] (07/25/2024 14:13 EDT US LE Venous Duplex Insufficiency Bilat) IMPRESSION: NO DVT OF EITHER LOWER EXTREMITY IDENTIFIED. PARTIALLY OCCLUDING MILDLY ECHOGENIC SUPERFICIAL VENOUS THROMBOSIS BOTH PROXIMAL SMALL SAPHENOUS VEINS. REFLUX NOTED WITHIN THE RIGHT GREATER SAPHENOUS VEIN, NOTED. [5] [1] Services Consulted Consult to Neurology - Ordered -- 07/26/24 7:58:00 EDT, worsening LE weakness, work up thus far unremarkable, Consult and Co-manage Consult to Wound Care - Ordered -- 07/24/24 10:15:00 EDT, coccyx wound, dressing/care recs, Consult and Co-manage Physical Exam Vitals & Measurements T: 36.7 ???C(Axillary) TMIN: 36.4 ???C(Axillary) TMAX: 36.7 ???C(Axillary) HR: 80(Monitored) RR: 18BP: 128/76 SpO2: 96% General: Morbidly obese adult male. Alert, calm, NAD Eyes: PERRLA, intact EOM HEENT: Mucous membrane and tongue normal Neck: supple, no JVD Lungs: on RA, lungs CTA Cardio: Regular S1, S2, Good perfusion Pulses: Normal capillary refill Abdomen: Obese, soft, non-distended, non-tender, + BS x4 Musculoskeletal: No deformity or scoliosis noted. Normal ROM for age. Integumentary: Warm, dry, lower legs with venous stasis dermatitis appearance, right foot TMA surgical dressing intact, stage III coccyx wound Extremity: No clubbing, 2+ below the knee edema Neurologic: Alert, oriented x 4 follows (more content not included)...[facility] HospitalComment on above:Result Comment: Electronically Signed By: Zuri Almendarez CNP\.br\Date and Time Signed: 07/27/24 15:29 EDT\.br\Electronically Co-Signed By: Juarez Whyte III, DO.br\Date and Time Co-Signed: 07/28/24 07:23 [id number] NoteUnSelect [facility]03-[facility] NoteImaging being sent through from [facility] Neurosurgery consulted, recommended holding eliquis and asa Okay for diet today MRI cervical spine orderedUnSelect Medical Specialty [facility] [place]03-19-2025 Note [facility]03-19-2025 NoteCurrently in NSR, holding eliquis for potential surgeryUnSelect Medical [facility] [place]03-19-2025 Note Continue bumex, farxiga, metoprolol, lipitor, entresto, aldactone Daily weights Intake and output, strictUnSelect Medical Specialty Hospital - [place]03-19-2025 Note Coccyx wound, chronic, POA Turn every 2 hours, dolphin bed ordered by nursingUnSelect [facility] [place]03-19-2025 NoteContinue sertraline, klonopinUnSelect Medical [facility] [place]03-19-2025 Evaluation + Plan noteExtracted from:Title:APSO Note-neurology Author:Elvin HERBERT, NicholeDate:07/27/24 ASSESSMENT: 63-year-old man with history of remote extensive sacral osteomyelitis and morbid obesity who has had acute on chronic sensory and motor issues since around July 23, 2024. Exam reveals a T11 sensory level and he complains of noxious paresthesias and sensory decrement throughout bilateral lower extremities completely; thoracic spine is checked out. He has developed a new urinary incontinence issue, and has sensory changes in his groin region, and might be retaining urine today. MRI of his lumbarspine (without contrast) shows severe central canal stenosis at L4-5 mostly due to posterior epidural lipomatosis (looks worst at series 10 image 33); I think he has cauda equina syndrome related to that (legs weak, legs painful, sensory loss in legs, new urinary incontinence, possible urinary retention). I do not think there is compressive effect on his conus medullaris. MRI thoracic spine looksfairly unremarkable. PLAN: He is being transferred for neurosurgical evaluation. No other recommendations at this time. 1. Bilateral leg pain (M79.604: Pain in right leg) 2. Urinary retention (R33.9: Retention of urine, unspecified) 3. Chest pain (R07.9: Chest pain, unspecified) 4. Venous stasis dermatitis (I87.2: Venous insufficiency (chronic) (peripheral)) 5. Diastolic congestive heart failure (I50.30: Unspecified diastolic (congestive) heart failure) 6. PAF (paroxysmal atrial fibrillation) (I48.0: Paroxysmal atrial fibrillation) 7. Coronary artery disease (I25.10: Atherosclerotic heart disease of [place] coronary artery withoutangina pectoris) 8. COPD mixed type (J44.9: Chronic obstructive pulmonary disease, unspecified) 9. ROBYN (obstructive sleep apnea) (G47.33: Obstructive sleep apnea (adult) (pediatric)) 10. Diabetes type 2 (E11.9: Type 2 diabetes mellitus without complications) 11. Hypertension (I10: Essential (primary) hypertension) 12. Hyperlipidemia (E78.5: Hyperlipidemia, unspecified) 13. Bipolar disorder (F31.9: Bipolar disorder, unspecified) 14. History of DVT in adulthood (Z86.718: Personal history of other venous thrombosis and embolism) 15. History of osteomyelitis (Z87.39: Personal history of other diseases of the musculoskeletal system and connective tissue) 16. Decubitus ulcer of coccyx (L89.159: Pressure ulcer of sacral region, unspecified stage) Extracted from:Title:Consult NoteAuthor:Mark Zepeda MDDate:07/26/24 1. Bilateral leg pain (M79.6 04: Pain in right leg) 2. Urinary retention (R33.9: Retention of urine, unspecified) 3. Chest pain (R07.9: Chest pain, unspecified) 4. Venous stasis dermatitis (I87.2: Venous insufficiency (chronic) (peripheral)) 5. Diastolic congestive heart failure (I50.30: Unspecified diastolic (congestive) heart failure) 6. PAF (paroxysmal atrial fibrillation) (I48.0: Paroxysmal atrial fibrillation) 7. Coronary artery disease (I25.10: Atherosclerotic heart disease of [place] coronary artery withoutangina pectoris) 8. COPD mixed type (J44.9: Chronic obstructive pulmonary disease, unspecified) 9. ROBYN (obstructive sleep apnea) (G47.33: Obstructive sleep apnea (adult) (pediatric)) 10. Diabetes type 2 (E11.9: Type 2 diabetes mellitus without complications) 11. Hypertension (I10: Essential (primary) hypertension) 12. Hyperlipidemia (E78.5: Hyperlipidemia, unspecified) Ordered: [facility] Hospital Care/Day Moderate 35 Minutes [id number] 13. Bipolar disorder (F31.9: Bipolar disorder, unspecified) 14. History of DVT in adulthood (Z86.718: Personal history of other venous thrombosis and embolism) 15. History of osteomyelitis (Z87.39: Personal history of other diseases of the musculoskeletal system and connective tissue) Ordered: [facility] Hospital Care/Day Moderate 35 Minutes [id number] 16. Decubitus ulcer of coccyx (L89.159: Pressure ulcer of sacral region, unspecified stage) Continue Selvin change dressing every other day attempt offload as best as possible follow-up in wound clinic once patient is discharged from tertiary care center Orders: Wound Culture Extracted from:Title:Consult Note- NeurologyAuthor:Danica Peter RN ADate: 07/26/24 ASSESSMENT: 63-year-old man with history of remote extensive sacral osteomyelitis and morbid obesity who has had acute on chronic sensory and motor issues since around July 23, 2024. Exam reveals a T11 sensory level and he complains of noxious paresthesias and sensory decrement throughout bilateral lower extremities completely; thoracic spine is checked out. He has developed a new urinary incontinence issue, and has sensory changes in his groin region, and might be retaining urine today. MRI of his lumbarspine (without contrast) shows severe central canal stenosis at L4-5 mostly due to posterior epidural lipomatosis (looks worst at series 10 image 33); strongly consider cauda equina syndrome related to that (legs weak, legs painful, sensory loss in legs, new urinary incontinence, possible urinary retention). I do not think there is compressive effect on his conus medullaris. He has recent toe amputations due to osteomyelitis; also consider epidural abscess. PLAN: 1. Bladder scan 2. MRI thoracic spine with and without contrast 3. Blood cultures 4. Some neuropathy lab work: B12, RPR, EMILI, SPEP, immunofixation 5. Strong consideration for neurosurgical evaluation 1. Bilateral leg pain (M79.604: Pain in right leg) 2. Chest pain (R07.9: Chest pain, unspecified) 3. Venous stasis dermatitis (I87.2: Venous insufficiency (chronic) (peripheral)) 4. Diastolic congestive heart failure (I50.30: Unspecified diastolic (congestive) heart failure) 5. PAF (paroxysmal atrial fibrillation) (I48.0: Paroxysmal atrial fibrillation) 6. Coronary artery disease (I25.10: Atherosclerotic heart disease of [place] coronary artery withoutangina pectoris) 7. COPD mixed type (J44.9: Chronic obstructive pulmonary disease, unspecified) 8. ROBYN (obstructive sleep apnea) (G47.33: Obstructive sleep apnea (adult) (pediatric)) 9. Diabetes type 2 (E11.9: Type 2 diabetes mellitus without complications) 10. Hypertension (I10: Essential (primary) hypertension) 11. Hyperlipidemia (E78.5: Hyperlipidemia, unspecified) 12. Bipolar disorder (F31.9: Bipolar disorder, unspecified) 13. History of DVT in adulthood (Z86.718: Personal history of other venous thrombosis and embolism) 14. History of osteomyelitis (Z87.39: Personal history of other diseases of the musculoskeletal system and connective tissue) 15. Decubitus ulcer of coccyx (L89.159: Pressure ulcer of sacral region, unspecified stage) Extracted from:Title:APSO NoteAuthor:ChristZuri crane CNP LDate:07/25/24 1. Bilateral leg pain (M79.604: Pain in right leg) Patient has recent diagnosis of CRPS (complex regional pain syndrome), started on gabapentin CRP normal, Sed Rate slightly elevated Lumbar Spine MRI: Lumbar spondylosis and disc disease -Venous Duplex and Venous Insufficiency studies pending -PVRs pending -PRN oxycodone -PT/OT have seen and recommending SNF 2. Chest pain (R07.9: Chest pain, unspecified) Atypical with negative cardiac enzymes, non-acute ECG. -Repeat echocardiogram pending -Plan for out patient stress test if echo normal, unless clinically worsens 3. Venous stasis dermatitis (I87.2: Venous insufficiency (chronic) (peripheral)) Present on BLE -Elevate LE -Venous Duplex, Insufficiency studies pending -Dr Zepeda has seen: Recommend compression with double Tubigrip's elevate legs above the level of the heart would obtainPVRs and ABIs to assess status of arterial inflow prior to higher levels of compression. We have also ordered a bilateral venous insufficiency study to assess for venous reflux 4. Diastolic congestive heart failure (I50.30: Unspecified diastolic (congestive) heart failure) *acute on chronic diastolic heart failure contributing to volume overload, worsening swelling to LE Echo 04/15/22 EF 65-70%, no significant valvular disease, impaired diastole BNP slightly elevated, CXR negative Bumex 3 mg BID, Coreg and Entresto BID -Update echocardiogram pending -IV Bumex 3 mg today in addition to oral 5. PAF (paroxysmal atrial fibrillation) (I48.0: Paroxysmal atrial fibrillation) Eliquis 2.5 mg BID (dosed this way per his underpresser hand due to bleeding to foot) 6. Coronary artery disease (I25.10: Atherosclerotic heart disease of [place] coronary artery withoutangina pectoris) CAD with history of prior PCI GDMT: asa, statin, beta shayan, Imdur 7. COPD mixed type (J44.9: Chronic obstructive pulmonary disease, unspecified) No acute exacerbation present 8. ROBYN (obstructive sleep apnea) (G47.33: Obstructive sleep apnea (adult) (pediatric)) Supportive care 9. Diabetes type 2 (E11.9: Type 2 diabetes mellitus without complications) Uncontrolled, A1C 7.7 Will hold metformin -AccuCheck AC/HS with SSI 10. Hypertension (I10: Essential (primary) hypertension) BP is normotensive 11. Hyperlipidemia (E78.5: Hyperlipidemia, unspecified) Atorvastatin 12. Bipolar disorder (F31.9: Bipolar disorder, unspecified) Clinically stable 13. History of DVT in adulthood (Z86.718: Personal history of other venous thrombosis and embolism) On low dose Eliquis due to recent bleeding issues related to his right foot 14. History of osteomyelitis (Z87.39: Personal history of other diseases of the musculoskeletal system and connective tissue) s/p right TMA Wound looks free of infection. He does have some slough present medially but it does not appear purulent. Also has a small tunneling area laterally which patient states is known 15. Decubitus ulcer of coccyx (L89.159: Pressure ulcer of sacral region, unspecified stage) Pressure ulcer, present on admit Stage III with tunneling -Consult wound- Dr Zepeda has seen -> chronic wound, Subcutaneous debridement of wound at the bedside. Recommend Selvin change dressings every other day -Remains fever free, no leukocytosis DNR CCA DVT Prophylaxis: NOAC PT/OT recommending SNF, awaiting precert/placement Patient continues to require inpatient status for management of decompensated heart failure, lower extremity pain requiring further evaluation with imaging; awaiting pre-CERT/placement for SNF Extracted from:Title:Consult NoteAuthor:Katelyn GILBERT, Mark TavaresDate:07/25/24 1. Bilateral leg pain (M79.6 04: Pain in right leg) Agree with venous duplex and venous insufficiency study. 2. Chest pain (R07.9: Chest pain, unspecified) 3. Venous stasis dermatitis (I87.2: Venous insufficiency (chronic) (peripheral)) Recommend compression with double Tubigrip's elevate legs above the level of the heart would obtainPVRs and ABIs to assess status of arterial inflow prior to higher levels of compression. We have also ordered a bilateral venous insufficiency study to assess for venous reflux 4. Diastolic congestive heart failure (I50.30: Unspecified diastolic (congestive) heart failure) 5. PAF (paroxysmal atrial fibrillation) (I48.0: Paroxysmal atrial fibrillation) 6. Coronary artery disease (I25.10: Atherosclerotic heart disease of [place] coronary artery withoutangina pectoris) 7. COPD mixed type (J44.9: Chronic obstructive pulmonary disease, unspecified) 8. ROBYN (obstructive sleep apnea) (G47.33: Obstructive sleep apnea (adult) (pediatric)) 9. Diabetes type 2 (E11.9: Type 2 diabetes mellitus without complications) Agree with sliding scale insulin and rigorous management of patient's glucose 10. Hypertension (I10: Essential (primary) hypertension) 11. Hyperlipidemia (E78.5: Hyperlipidemia, unspecified) 12. Bipolar disorder (F31.9: Bipolar disorder, unspecified) 13. History of DVT in adulthood (Z86.718: Personal history of other venous thrombosis and embolism) 14. History of osteomyelitis (Z87.39: Personal history of other diseases of the musculoskeletal system and connective tissue) 15. Decubitus ulcer of coccyx (L89.159: Pressure ulcer of sacral region, unspecified stage) Subcutaneous debridement of wound at the bedside. Recommend Selvin change dressings every other day Orders: US Lower Extremity Venous Duplex Insufficiency Bilat Portions of this record may have been created with voice recognition artificial intelligence software, specifically [employer], [employer] and or [employer]. Substitutions may have occurred due to the inherent limitations of voice recognition and artificial intelligence software. Total time spent preparing the chart, conducting of the encounter with the patient and family and time spent documenting, reviewing, and ordering tests was 80 minutes Extracted from:Title:APSO NoteAuthor:Zuri Almendarez CNP LDate:07/24/24 1. Bilateral leg pain (M79.6 04: Pain in right leg) Patient has recent diagnosis of CRPS (complex regional pain syndrome), started on gabapentin CRP normal, Sed Rate slightly elevated Venous Duplex pending -Will also check PVRs -Check Lumbar spine MRI w/wo contrast -PRN oxycodone 2. Chest pain (R07.9: Chest pain, unspecified) Atypical with negative cardiac enzymes, non-acute ECG. -Will update echocardiogram -Plan for out patient stress test if echo normal, unless clinically worsens 3. Venous stasis dermatitis (I87.2: Venous insufficiency (chronic) (peripheral)) Present on BLE -Elevate LE -Venous Duplex pending 4. Diastolic congestive heart failure (I50.30: Unspecified diastolic (congestive) heart failure) Concern for acute on chronic diastolic heart failure. Echo 04/15/22 EF 65-70%, no significant valvular disease, impaired diastole BNP only slightly elevated, CXR negative Bumex 3 mg BID, Coreg and Entresto BID -Update echocardiogram 5. PAF (paroxysmal atrial fibrillation) (I48.0: Paroxysmal atrial fibrillation) Eliquis 2.5 mg BID (dosed this way per his underpresser hand due to bleeding to foot) 6. Coronary artery disease (I25.10: Atherosclerotic heart disease of [place] coronary artery withoutangina pectoris) CAD with history of prior PCI GDMT: asa, statin, beta shayan, Imdur 7. COPD mixed type (J44.9: Chronic obstructive pulmonary disease, unspecified) No acute exacerbation present 8. ROBYN (obstructive sleep apnea) (G47.33: Obstructive sleep apnea (adult) (pediatric)) Supportive care 9. Diabetes type 2 (E11.9: Type 2 diabetes mellitus without complications) Uncontrolled, A1C 7.7 Will hold metformin -AccuCheck AC/HS with SSI 10. Hypertension (I10: Essential (primary) hypertension) BP is normotensive 11. Hyperlipidemia (E78.5: Hyperlipidemia, unspecified) Atorvastatin 12. Bipolar disorder (F31.9: Bipolar disorder, unspecified) Clinically stable 13. History of DVT in adulthood (Z86.718: Personal history of other venous thrombosis and embolism) On low dose Eliquis due to recent bleeding issues related to his right foot 14. History of osteomyelitis (Z87.39: Personal history of other diseases of the musculoskeletal system and connective tissue) s/p right TMA Wound looks free of infection. He does have some slough present medially but it does not appear purulent. Also has a small tunneling area laterally which patient states is known 15. Decubitus ulcer of coccyx (L89.159: Pressure ulcer of sacral region, unspecified stage) Pressure ulcer, present on admit Stage III with tunneling -Wound care power plan for now -Consult wound- may need Dr Zepeda to evaluate -No fevers, leukocytosis Orders: Communication Order Consult to Wound Care Dressing Care/Change Dressing Care/Change MRI Spine Lumbar w/ + w/o Contrast US PVR Lower EXT Complete Bilat DNR CCA DVT Prophylaxis: NOAC PT/OT recommending SNF Addendum by Zuri Almendarez CNP on July 24, 2024 19:50:26 EDT Changed to in-patient status, initially patient felt to be observation status, however, now with worsening LE and gait instability requiring further testing, severe pressure ulcer (POA) that will require inpatient wound consultation, and IV diuresis for decompensated HF despite escalated outpatientHF therapy. Patient also seen by PT.OT and recommended for SNF. Unsafe to return home at this time. Extracted from:Title:Admission H & PAuthor:Stepan GILBERT, KristenDate:07/23/24 1. Bilateral leg pain (M79.6 04: Pain in right leg) Differential broad. Includes more likely underlying CRPS (complex regional pain syndrome), Claudication or Edema of BLE. Less likely DVT although should rule it out No cellulitis present per my exam Ordered stat CRP, ESR Ordered Venous Dopplers BLE Ordered an extra dose of Bumex 3mg IV x1 If this is an exacerbation of his underlying CRPS, unsure where to go with his meds. He is already on Neurontin. Due to his comorbidities NSAIDs would be risky. Doubt he would tolerate capsaicin cream, but could trial some topical lidocaine. Ordered oxycodone 10 mg p.o. as needed If this is underlying claudication due to PAD with his history of CHF would not recommend Pletal. Trial of steroids would be risky in this patient without knowing his definitive underlying autoimmune condition 2. Chest pain (R07.9: Chest pain, unspecified) Doubt Cardiac. Pain is atypical. Cycle serial cardiac enzymes. If remain negative then could consider outpatient Stress Test. 3. Venous stasis dermatitis (I87.2: Venous insufficiency (chronic) (peripheral)) Present on BLE 4. Diastolic congestive heart failure (I50.30: Unspecified diastolic (congestive) heart failure) Possible acute on chronic diastolic heart failure. Echo 04/15/22 EF 65-70%, no signficant valvular disease, impaired diastole Ordered an extra dose of IV Bumex 3mg Iv x1. Patient is on home oral Bumex 3mg po BID and gets IV Bumex twice a week outpatient at [facility] 5. PAF (paroxysmal atrial fibrillation) (I48.0: Paroxysmal atrial fibrillation) On low-dose Eliquis for anticoagulation. Head issues with bleeding from his right foot surgical wounds so states that they decreased his Eliquis about a month ago 6. Coronary artery disease (I25.10: Atherosclerotic heart disease of [place] coronary artery withoutangina pectoris) That is post history of 2 prior stents 7. COPD mixed type (J44.9: Chronic obstructive pulmonary disease, unspecified) No acute exacerbation present 8. ROBYN (obstructive sleep apnea) (G47.33: Obstructive sleep apnea (adult) (pediatric)) 9. Diabetes type 2 (E11.9: Type 2 diabetes mellitus without complications) Uncontrolled, A1C 7.7 10. Hypertension (I10: Essential (primary) hypertension) 11. Hyperlipidemia (E78.5: Hyperlipidemia, unspecified) Atorvastatin 12. Bipolar disorder (F31.9: Bipolar disorder, unspecified) 13. History of DVT in adulthood (Z86.718: Personal history of other venous thrombosis and embolism) On low dose Eliquis due to recent bleeding issues related to his right foot 14. History of osteomyelitis (Z87.39: Personal history of other diseases of the musculoskeletal system and connective tissue) s/p right TMA 01/2023 Wound looks free of infection. He does have some slough present medially but it does not appear purulent. Also has a small tunneling area laterally which patient states is known Extracted from:Title:ED NoteAuthor:Dennys Merida, Lucia HDate:07/23/24 1. Venous stasis dermatitis (I87.2: Venous insufficiency (chronic) (peripheral)) Chest pain (R07.9: Chest pain, unspecified) Orders: acetaminophen-oxycodone, 1 tab(s), Tab, Oral, Once, Stop date 07/23/24 13:42:00 EDT, STAT, Start date 07/23/24 13:42:00 EDT aspirin, 162 mg = 2 tab(s), Tab-Chew, Oral, Once, Stop date 07/23/24 12:43:00 EDT, STAT, Start date07/23/24 12:43:00 EDT, 07/23/24 12:43:00 EDT nitroglycerin, 0.4 mg = 1 tab(s), Tab, SubLingual, q5min PRN Chest pain for 3 dose(s), Stop date Limited # of times, STAT, Start date 07/23/24 13:16:00 EDT, Hold for SBP < 110, 07/23/24 13:16:00 EDT ondansetron, 4 mg = 2 mL, Injection, IV, Once, Stop date 07/23/24 13:01:00 EDT, Start date 07/23/2512:01:00 EDT B-Type Natriuretic Peptide Basic Metabolic Panel CBC w/ Auto Diff ECG 12 Lead Adult ED Cardiac Monitoring ED Physician consult Hospitalist for continued care eGFR Lactic Acid Magnesium Level Oxygen Saturation Oxygen Therapy PT & PTT Saline Lock Insert Troponin 0 Hr. Troponin 1 Hr. XR Chest Single View Diagnostic Tests Pending * Protein Electrophoresis 07/26/24 * Immunofixation Serum 07/26/24 * RPR with Conf Rfx 07/26/24 * EMILI w/Reflex if POS 07/26/24 [facility] 03-19-2025 NoteProgress Note-Physician Assessment/Plan ASSESSMENT: 63-year-old man with history of remote extensive sacral osteomyelitis and morbid obesity who has had acute on chronic sensory and motor issues since around July 23, 2024. Exam reveals a T11 sensory level and he complains of noxious paresthesias and sensory decrement throughout bilateral lower extremities completely; thoracic spine is checked out. He has developed a new urinary incontinence issue, and has sensory changes in his groin region, and might be retaining urine today. MRI of his lumbarspine (without contrast) shows severe central canal stenosis at L4-5 mostly due to posterior epidural lipomatosis (looks worst at series 10 image 33); I think he has cauda equina syndrome related to that (legs weak, legs painful, sensory loss in legs, new urinary incontinence, possible urinary retention). I do not think there is compressive effect on his conus medullaris. MRI thoracic spine looksfairly unremarkable. PLAN: He is being transferred for neurosurgical evaluation. No other recommendations at this time. 1. Bilateral leg pain (M79.604: Pain in right leg) 2. Urinary retention (R33.9: Retention of urine, unspecified) 3. Chest pain (R07.9: Chest pain, unspecified) 4. Venous stasis dermatitis (I87.2: Venous insufficiency (chronic) (peripheral)) 5. Diastolic congestive heart failure (I50.30: Unspecified diastolic (congestive) heart failure) 6. PAF (paroxysmal atrial fibrillation) (I48.0: Paroxysmal atrial fibrillation) 7. Coronary artery disease (I25.10: Atherosclerotic heart disease of [place] coronary artery withoutangina pectoris) 8. COPD mixed type (J44.9: Chronic obstructive pulmonary disease, unspecified) 9. ROBYN (obstructive sleep apnea) (G47.33: Obstructive sleep apnea (adult) (pediatric)) 10. Diabetes type 2 (E11.9: Type 2 diabetes mellitus without complications) 11. Hypertension (I10: Essential (primary) hypertension) 12. Hyperlipidemia (E78.5: Hyperlipidemia, unspecified) 13. Bipolar disorder (F31.9: Bipolar disorder, unspecified) 14. History of DVT in adulthood (Z86.718: Personal history of other venous thrombosis and embolism) 15. History of osteomyelitis (Z87.39: Personal history of other diseases of the musculoskeletal system and connective tissue) 16. Decubitus ulcer of coccyx (L89.159: Pressure ulcer of sacral region, unspecified stage) Subjective Symptoms seem about the same, but the paresthesias seem more intense. He is having a harder time getting comfortable in any position. He was found to be retaining a liter of urine and then had some overflow incontinence or partial urinary control since then. Review of Systems GEN: No fevers or chills. CV/PULM: No chest pain. No shortness of breath. No palpitations. NEURO: No headaches. No loss of vision. No double vision. No dysphagia. No speech changes. [1] Objective Vitals & Measurements T: 36.7 ???C(Axillary) TMIN: 36.4 ???C(Axillary) TMAX: 36.7 ???C(Axillary) HR: 80(Monitored) RR: 18BP: 128/76 SpO2: 96% Intake & Output This visit (24 hour periods starting at 07:00 EDT) 07/27/24 * 07/26/24 07/25/24 Total Summary Intake mL -- 800 1,173.3 Output mL -- 1,050 4,975 Fluid Balance -- -250 -3,801.7 Intake (3) Oral Intake mL -- 800 1,160 bumetanide mL -- -- 12 perflutren mL -- -- 1.3 Total -- 800 1,173.3 Output (1) Urine Voided mL -- 1,050 4,975 Total -- 1,050 4,975 Counts (1) Stool Count -- 1 -- * This column has not completed the indicated time period. Physical Exam GEN: General appearance normal. In no distress. Chronic sacral skin changes are covered with bandages. Right foot bandaged. Amputated great toe on left foot. Some toes amputated on right foot. CARDIO/VASC: Venous stasis changes bilateral lower extremities. PULM: Normal work of breathing. SKIN: Age associated skin findings. The stasis dermatitis changes on the legs. MS: Affect is normal. Patient is alert and generally oriented. Normal attention. LANG: Speech is fluent and non-dysarthric. EYES: Pupils equal/reactive/consensual. Ocular motility full. No pathologic nystagmus. CN: Facial sensation normal. Hearing acuity normal. Face without droop and with normal motor function. MOTOR: Muscle bulk normal. Muscle tone normal. Diffuse weakness throughout bilateral lower extremities. No tremors. REFLEXES: Left patellar reflex +1/4, right patellar reflex absent. No Fatuma signs. SENSORY: Vibratory sensation diminished at knees and absent distal to knees. He has a T11 sensory level to pinprick. CEREBELLAR: No limb ataxia in upper extremities. [2] Lab Results WBC: 10.7 E9/L (07/27/24 05:56:00) RBC: 3.5 E12/L Low (07/27/24 05:56:00) HGB: 9.8 gm/dL Low (07/27/24 05:56:00) Hct: 29.9 % Low (07/27/24 05:56:00) MCV: 86.4 fL (07/27/24 05:56:00) MCH: 28.4 pg (07/27/24 05:56:00) MCHC: 32.9 gm/dL (07/27/24 05:56:00) RDW: 20.3 % High (07/27/24 05:56 (more content not included)...[facility] on [facility]:Result Comment: Electronically Signed By: Iram Oconnor RN\.br\Date and Time Signed: 07/27/24 09:59 EDT\.br\Electronically Co- Signed By: Magdi John DO\.br\Date and Time Co-Signed: 07/27/24 10:30 EDT 07-27-2024 Hospital Discharge instructions Patient Education 07/27/2024 08:11:01 Musculoskeletal Pain Musculoskeletal Pain Musculoskeletal pain refers to aches and pains in your bones, joints, muscles, and the tissues thatsurround them. This pain can occur in any part of the body. It can last for a short time (acute) ora long time (chronic). A physical exam, lab tests, and imaging studies may be done to find the cause of your musculoskeletal pain. Follow these instructions at home: Lifestyle Try to control or lower your stress levels. Stress increases muscle tension and can worsen musculoskeletal pain. It is important to recognize when you are anxious or stressed and learn ways to manageit. This may include: ?Meditation or yoga. ?Cognitive or behavioral therapy. ?Acupuncture or massage therapy. You may continue all activities unless the activities cause more pain. When the pain gets better, slowly resume your normal activities. Gradually increase the intensity and duration of your activities or exercise. Managing pain, stiffness, and swelling Treatment may include medicines for pain and inflammation that are taken by mouth or applied to theskin. Take [id number] and prescription medicines only as told by your health care provider. When your pain is severe, bed rest may be helpful. Lie or sit in any position that is comfortable, but get out of bed and walk around at least every couple of hours. If directed, apply heat to the affected area as often as told by your health care provider. Use theheat source that your health care provider recommends, such as a moist heat pack or a heating pad. ?Place a towel between your skin and the heat source. ?Leave the heat on for 20 30 minutes. ?Remove the heat if your skin turns bright red. This is especially important if you are unable to feel pain, heat, or cold. You may have a greater risk of getting burned. If directed, put ice on the painful area. To do this: ?Put ice in a plastic bag. ?Place a towel between your skin and the bag. ?Leave the ice on for 20 minutes, 2 3 times a day. ?Remove the ice if your skin turns bright red. This is very important. If you cannot feel pain, heat, or cold, you have a greater risk of damage to the area. General instructions Your health care provider may recommend that you see a physical therapist. This person can help youcome up with a safe exercise program. If told by your health care provider, do physical therapy exercises to improve movement and strength in the affected area. Keep all follow-up visits. This is important. This includes any physical therapy visits. Contact a health care provider if: Your pain gets worse. Medicines do not help ease your pain. You cannot use the part of your body that hurts, such as your arm, leg, or neck. You have trouble sleeping. You have trouble doing your normal activities. Get help right away if: You have a new injury and your pain is worse or different. You feel numb or you have tingling in the painful area. Summary Musculoskeletal pain refers to aches and pains in your bones, joints, muscles, and the tissues thatsurround them. This pain can occur in any part of the body. Your health care provider may recommend that you see a physical therapist. This person can help youcome up with a safe exercise program. Do any exercises as told by your physical therapist. Lower your stress level. Stress can worsen musculoskeletal pain. Ways to lower stress may include meditation, yoga, cognitive or behavioral therapy, acupuncture, and massage therapy. This information is not intended to replace advice given to you by your health care provider. Make sure you discuss any questions you have with your health care provider. Document Revised: 08/30/2020 Document Reviewed: 08/08/2020 [employer] Patient Education 2023 [employer]rav. Follow Up Care 07/23/2024 12:23:45 With:SURAJ LIZ MD, FAM Address: [address] [place] [id number]- When: Unknown Comments:FU on DC from tertiary facility With:Elkin GILBERT, KATELYNN James Address: [address] [address]- When:2 to 4 weeks [facility] [place] 03-18-2025 NoteConsultation Note Chief Complaint leg pain/swelling, chest pain, nausea, vomiting Reason for Consultation Coccygeal wound consult follow-up History of Present Illness Patient is began to develop saddle anesthesia and loss of bowel function raise concern for cauda equina syndrome. Patient is being [facility] for evaluation by spinesurgery service. No new issues regarding wound. Physical Exam Vitals & Measurements T: 36.4 ???C(Axillary) TMIN: 36.4 ???C(Axillary) TMAX: 36.8 ???C(Axillary) HR: 80(Monitored) RR: 18BP: 115/55 SpO2: 96% WT: 129 kg Coccygeal wound measurements are unchanged from yesterday, granulation tissue with scant exudate and base of wound. Assessment/Plan 1. Bilateral leg pain (M79.604: Pain in right leg) 2. Urinary retention (R33.9: Retention of urine, unspecified) 3. Chest pain (R07.9: Chest pain, unspecified) 4. Venous stasis dermatitis (I87.2: Venous insufficiency (chronic) (peripheral)) 5. Diastolic congestive heart failure (I50.30: Unspecified diastolic (congestive) heart failure) 6. PAF (paroxysmal atrial fibrillation) (I48.0: Paroxysmal atrial fibrillation) 7. Coronary artery disease (I25.10: Atherosclerotic heart disease of [place] coronary artery withoutangina pectoris) 8. COPD mixed type (J44.9: Chronic obstructive pulmonary disease, unspecified) 9. ROBYN (obstructive sleep apnea) (G47.33: Obstructive sleep apnea (adult) (pediatric)) 10. Diabetes type 2 (E11.9: Type 2 diabetes mellitus without complications) 11. Hypertension (I10: Essential (primary) hypertension) 12. Hyperlipidemia (E78.5: Hyperlipidemia, unspecified) Ordered: [facility] Hospital Care/Day Moderate 35 Minutes 13688 13. Bipolar disorder (F31.9: Bipolar disorder, unspecified) 14. History of DVT in adulthood (Z86.718: Personal history of other venous thrombosis and embolism) 15. History of osteomyelitis (Z87.39: Personal history of other diseases of the musculoskeletal system and connective tissue) Ordered: [facility] Hospital Care/Day Moderate 35 Minutes [address] 16. Decubitus ulcer of coccyx (L89.159: Pressure ulcer of sacral region, unspecified stage) Continue Selvin change dressing every other day attempt offload as best as possible follow-up in wound clinic once patient is discharged from tertiary care center Orders: Wound Culture Attestation Total time spent preparing the chart, conducting of the encounter with the patient and family and time spent documenting, reviewing, and ordering tests was 35-minutes 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 Flank pain History of DVT in adulthood Hyperlipidemia Hypertension Incomplete bladder emptying Incontinence without sensory awareness Morbid obesity due to excess calories Nocturia Obstructive sleep apnea ROBYN on CPAP Osteomyelitis PAF (paroxysmal atrial fibrillation) Personal history of kidney stones Urgency incontinence Urinary retention Historical No qualifying data Procedure/Surgical History Wound debridement (08/13/2022), Incision AND drainage (06/20/2022), Incision AND drainage (05/23/2022), Amputation great toe (04/16/2022), Skin graft (11/02/2019), Amputated toe, Appendectomy, Colonoscopy, Cystoscopy, Gastric bypass. Medications Inpatient acetaminophen 325 mg Tab, 650 mg= 2 tab(s), Oral, q6hr, PRN Al hydroxide/Mg hydroxide/simethicone 200 mg-200 mg-20 mg/5 mL oral suspension, 30 mL, Oral, q6hr, PRN aspirin 81 mg Chew Tab, 81 mg= 1 tab(s), Chewed, Daily atorvastatin 40 mg Tab, 80 mg= 2 tab(s), Oral, Daily atropine-diphenoxylate 0.025 mg-2.5 mg Tab, 1 tab(s), Oral, QID, PRN bumetanide 1 mg Tab, 3 mg= 3 tab(s), Oral, BID cholecalciferol 1000 intl units (25 mcg) oral tablet, 50 mcg= 2 tab(s), Oral, Daily Coreg 3.125 mg Tab, 3.125 mg= 1 tab(s), Oral, BID Dextrose 50% Soln-IV, 50 mL, IV Push, Once, PRN diclofenac topical 1% gel, 1 raymon, Topical, QID, PRN divalproex sodium 125 mg Cap-EC, 125 mg= 1 cap(s), Oral, BID divalproex sodium 500 mg Oral EC Tab, 500 mg= 1 tab(s), Oral, BID Eliquis 2.5 mg oral tablet, 2.5 mg= 1 tab(s), Oral, BID Entresto 24 mg-26 mg oral tablet, 0.5 tab(s), Oral, BID ferrous sulfate 325 mg Tab, 325 mg= 1 tab(s), Oral, TID gabapentin, 600 mg= 1 tab(s), Oral, TID hydrALAZINE 20 mg/mL Inj, 10 mg= 0.5 mL, IV Push, q4hr, PRN Insulin Lispro Sliding Scale, 0-10 Unit(s), SubCutaneous, QIDACHS isosorbide mononitrate 30 mg ER Tab, 30 mg= 1 tab(s), Oral, Daily melatonin 3 mg Tab, 3 mg= 1 tab(s), O (more content not included)...[facility] HospitalComment on above:Result Comment: Electronically Signed By: Katelyn GILBERT, Mark Bentonbr\Date and Time Signed: 07/26/24 16:40 [id number] Note [facility]03-18-2025 NoteProgress Note-Physician Basic Information 63-year-old male with past medical history positive for diastolic heart failure, PAF, CAD with prior PCI, COPD, diabetes, hypertension hyperlipidemia, bipolar, history of DVT and past, osteomyelitis status post right TMA, and morbid obesity currently admitted for progressive lower extremity pain Assessment/Plan 1. Bilateral leg pain (M79.604: Pain in right leg) Patient has recent diagnosis of CRPS (complex regional pain syndrome), started on gabapentin CRP normal, Sed Rate slightly elevated Lumbar Spine MRI: Lumbar spondylosis and disc disease -Venous Duplex and Venous Insufficiency studies pending -PVRs pending -PRN oxycodone -PT/OT have seen and recommending SNF 2. Chest pain (R07.9: Chest pain, unspecified) Atypical with negative cardiac enzymes, non-acute ECG. -Repeat echocardiogram pending -Plan for out patient stress test if echo normal, unless clinically worsens 3. Venous stasis dermatitis (I87.2: Venous insufficiency (chronic) (peripheral)) Present on BLE -Elevate LE -Venous Duplex, Insufficiency studies pending -Dr Zepeda has seen: Recommend compression with double Tubigrip's elevate legs above the level of the heart would obtain PVRs and ABIs to assess status of arterial inflow prior to higher levels of compression. We have also ordered a bilateral venous insufficiency study to assess for venous reflux 4. Diastolic congestive heart failure (I50.30: Unspecified diastolic (congestive) heart failure) *acute on chronic diastolic heart failure contributing to volume overload, worsening swelling to LE Echo 04/15/22 EF 65-70%, no significant valvular disease, impaired diastole BNP slightly elevated, CXR negative Bumex 3 mg BID, Coreg and Entresto BID -Update echocardiogram pending -IV Bumex 3 mg today in addition to oral 5. PAF (paroxysmal atrial fibrillation) (I48.0: Paroxysmal atrial fibrillation) Eliquis 2.5 mg BID (dosed this way per his underpresser hand due to bleeding to foot) 6. Coronary artery disease (I25.10: Atherosclerotic heart disease of [place] coronary artery withoutangina pectoris) CAD with history of prior PCI GDMT: asa, statin, beta shayan, Imdur 7. COPD mixed type (J44.9: Chronic obstructive pulmonary disease, unspecified) No acute exacerbation present 8. ROBYN (obstructive sleep apnea) (G47.33: Obstructive sleep apnea (adult) (pediatric)) Supportive care 9. Diabetes type 2 (E11.9: Type 2 diabetes mellitus without complications) Uncontrolled, A1C 7.7 Will hold metformin -AccuCheck AC/HS with SSI 10. Hypertension (I10: Essential (primary) hypertension) BP is normotensive 11. Hyperlipidemia (E78.5: Hyperlipidemia, unspecified) Atorvastatin 12. Bipolar disorder (F31.9: Bipolar disorder, unspecified) Clinically stable 13. History of DVT in adulthood (Z86.718: Personal history of other venous thrombosis and embolism) On low dose Eliquis due to recent bleeding issues related to his right foot 14. History of osteomyelitis (Z87.39: Personal history of other diseases of the musculoskeletal system and connective tissue) s/p right TMA Wound looks free of infection. He does have some slough present medially but it does not appear purulent. Also has a small tunneling area laterally which patient states is known 15. Decubitus ulcer of coccyx (L89.159: Pressure ulcer of sacral region, unspecified stage) Pressure ulcer, present on admit Stage III with tunneling -Consult wound- Dr Zepeda has seen -> chronic wound, Subcutaneous debridement of wound at the bedside. Recommend Selvin change dressings every other day -Remains fever free, no leukocytosis DNR CCA DVT Prophylaxis: NOAC PT/OT recommending SNF, awaiting precert/placement Patient continues to require inpatient status for management of decompensated heart failure, lower extremity pain requiring further evaluation with imaging; awaiting pre-CERT/placement for SNF Subjective Still with pain to lower extremities. Labs are stable, remains afebrile. Dr Zepeda saw patient forpressure ulcer on coccyx, performed debridement and dressing change recs given. He will FU in woundclinic as out patient. Review of Systems Additional ROS info: Except as noted in the above Review of Systems and in the History of Present Illness all other systems have been reviewed and are negative or noncontributory Objective Vitals & Measurements T: 36.4 ???C(Axillary) TMIN: 36.4 ???C(Axillary) TMAX: 36.7 ???C(Axillary) HR: 70(Monitored) RR: 18BP: 158/82 SpO2: 98% WT: 128.8 kg Intake & Output This visit (24 hour periods starting at 07:00 EDT) 07/25/24 * 07/24/24 07/23/24 Total Summary Intake mL -- 860 14 Output mL 1,275 2,100 -- Fluid Balance -1,275 -1,240 14 Intake (3) Oral Intake mL -- 860 -- bumetanide mL -- -- 12 ondansetron mL -- -- 2 Total -- 860 14 Output (1) Urine Voided mL 1,275 2,100 -- Total 1,275 2 (more content not included)...[facility] HospitalComment on above: Result Comment: Electronically Signed By: Zuri Almendarez CNP\.br\Date and Time Signed: 07/25/24 14:11 EDT\.br\Electronically Co-Signed By: Juarez Whyte III, DO.br\Date and Time Co-Signed: 07/26/24 10:07 [id number] Note Consultation Note Chief Complaint leg pain/swelling, chest pain, nausea, vomiting Reason for Consultation worseining LE weakness, History of Present Illness 63-year-old man. History of extreme obesity, he says he peaked at 450 pounds I think and currently he weighs 284 pounds, 166 pound weight loss from his maximum. 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 Recovery from that was long. He has relatively recent amputation of some of the toes of the right foot. He also has previous amputation of his left great toe. He said osteomyelitis was the cause. Medical history includes diastolic heart failure, paroxysmal atrial fibrillation on apixaban 2.5 mg twice daily, coronary artery disease, COPD, diabetes, hypertension, hyperlipidemia, history of DVT, among others. He was admitted here July 23. Has had intermittent mild neuropathic pains in his lower extremitieslower extremities for months to years. They used to be positional. 6 months ago he said he would wake up with numb legs but the feeling would return. Recently he has developed constant paresthesias that are mildly painful or noxious throughout the entirety of both lower extremities in no particulardermatomal distribution. He has been unable to stand since Thursday, as his legs feel weak with this.Yesterday he noticed that he did not have any control of urination and he had urinary incontinence without realizing it. His groin also feels somewhat paresthetic or numb. He has a diagnosis of complex regional pain syndrome. Years ago he had been seeing Dr. Octavio Garcia. Has a diagnosis of diabetic polyneuropathy. He had MRI of his lumbar spine here. His arms feel normal, though he says he has some mild tingling or sensory loss in his hands that is because of a longstanding length dependent polyneuropathy. Review of Systems GEN: No fevers or chills. CV/PULM: No chest pain. No shortness of breath. No palpitations. NEURO: No headaches. No loss of vision. No double vision. No dysphagia. No speech changes. Physical Exam Vitals & Measurements T: 36.4 ???C(Axillary) TMIN: 36.4 ???C(Axillary) TMAX: 36.8 ???C(Axillary) HR: 71(Monitored) RR: 18BP: 143/75 SpO2: 98% HT: 180 cm WT: 129 kg GEN: General appearance normal. In no distress. Chronic sacral skin changes are covered with bandages. Right foot bandaged. Amputated great toe on left foot. Some toes amputated on right foot. CARDIO/VASC: Venous stasis changes bilateral lower extremities. PULM: Normal work of breathing. SKIN: Age associated skin findings. The stasis dermatitis changes on the legs. MS: Affect is normal. Patient is alert and generally oriented. Normal attention. LANG: Speech is fluent and non-dysarthric. EYES: Pupils equal/reactive/consensual. Ocular motility full. No pathologic nystagmus. CN: Facial sensation normal. Hearing acuity normal. Face without droop and with normal motor function. MOTOR: Muscle bulk normal. Muscle tone normal. Diffuse weakness throughout bilateral lower extremities. No tremors. REFLEXES: Left patellar reflex +1/4, right patellar reflex absent. No Fatuma signs. SENSORY: Vibratory sensation diminished at knees and absent distal to knees. He has a T11 sensory level to pinprick. CEREBELLAR: No limb ataxia in upper extremities. Assessment/Plan ASSESSMENT: 63-year-old man with history of remote extensive sacral osteomyelitis and morbid obesity who has had acute on chronic sensory and motor issues since around July 23, 2024. Exam reveals a T11 sensory level and he complains of noxious paresthesias and sensory decrement throughout bilateral lower extremities completely; thoracic spine is checked out. He has developed a new urinary incontinence issue, and has sensory changes in his groin region, and might be retaining urine today. MRI of his lumbarspine (without contrast) shows severe central canal stenosis at L4-5 mostly due to posterior epidural lipomatosis (looks worst at series 10 image 33); strongly consider cauda equina syndrome related to that (legs weak, legs painful, sensory loss in legs, new urinary incontinence, possible urinary retention). I do not think there is compressive effect on his conus medullaris. He has recent toe amputations due to osteomyelitis; also consider epidural abscess. PLAN: 1. Bladder scan 2. MRI thoracic spine with and without contrast 3. Blood cultures 4. Some neuropathy lab work: B12, RPR, EMILI, SPEP, immunofixation 5. Strong consideration for neurosurgical evaluation 1. Bilateral leg pain (M79.604: Pain in right leg) 2. Chest pain (R07.9: Chest pain, unspecified) 3. Venous stasis dermatitis (I87.2: Venous insufficiency (chronic) (peripheral)) 4. Diastolic congestive heart failure (I50.30: Unspecified diastolic (congestive) heart failure) 5. PAF (paroxysmal atrial fibrillation) (I48.0: Paroxysmal atrial fibrillation) 6. Coronary artery disease (I25.10: Athe (more content not included)...[facility]:Result Comment: Electronically Signed By: Danica Peter RN\.br\Date and Time Signed: 07/26/24 08:14 EDT\.br\Electronically Co-Signed By: Magdi John DO\.br\Date and Time Co- Signed: 07/26/24 10:01 EDT\.br\Electronically Co-Signed By: Danica Peter RN [id number] NoteConsultation Note Chief Complaint leg pain/swelling, chest pain, nausea, vomiting Reason for Consultation worseining LE weakness, History of Present Illness 63-year-old man. History of extreme obesity, he says he peaked at 450 pounds I think and currently he weighs 284 pounds, 166 pound weight loss from his maximum. 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 Recovery from that was long. He has relatively recent amputation of some of the toes of the right foot. He also has previous amputation of his left great toe. He said osteomyelitis was the cause. Medical history includes diastolic heart failure, paroxysmal atrial fibrillation on apixaban 2.5 mg twice daily, coronary artery disease, COPD, diabetes, hypertension, hyperlipidemia, history of DVT, among others. He was admitted here July 23. Has had intermittent mild neuropathic pains in his lower extremitieslower extremities for months to years. They used to be positional. 6 months ago he said he would wake up with numb legs but the feeling would return. Recently he has developed constant paresthesias that are mildly painful or noxious throughout the entirety of both lower extremities in no particulardermatomal distribution. He has been unable to stand since Thursday, as his legs feel weak with this.Yesterday he noticed that he did not have any control of urination and he had urinary incontinence without realizing it. His groin also feels somewhat paresthetic or numb. He has a diagnosis of complex regional pain syndrome. Years ago he had been seeing Dr. Octavio Garcia. Has a diagnosis of diabetic polyneuropathy. He had MRI of his lumbar spine here. His arms feel normal, though he says he has some mild tingling or sensory loss in his hands that is because of a longstanding length dependent polyneuropathy. Review of Systems GEN: No fevers or chills. CV/PULM: No chest pain. No shortness of breath. No palpitations. NEURO: No headaches. No loss of vision. No double vision. No dysphagia. No speech changes. Physical Exam Vitals & Measurements T: 36.4 ???C(Axillary) TMIN: 36.4 ???C(Axillary) TMAX: 36.8 ???C(Axillary) HR: 71(Monitored) RR: 18BP: 143/75 SpO2: 98% HT: 180 cm WT: 129 kg GEN: General appearance normal. In no distress. Chronic sacral skin changes are covered with bandages. Right foot bandaged. Amputated great toe on left foot. Some toes amputated on right foot. CARDIO/VASC: Venous stasis changes bilateral lower extremities. PULM: Normal work of breathing. SKIN: Age associated skin findings. The stasis dermatitis changes on the legs. MS: Affect is normal. Patient is alert and generally oriented. Normal attention. LANG: Speech is fluent and non-dysarthric. EYES: Pupils equal/reactive/consensual. Ocular motility full. No pathologic nystagmus. CN: Facial sensation normal. Hearing acuity normal. Face without droop and with normal motor function. MOTOR: Muscle bulk normal. Muscle tone normal. Diffuse weakness throughout bilateral lower extremities. No tremors. REFLEXES: Left patellar reflex +1/4, right patellar reflex absent. No Fatuma signs. SENSORY: Vibratory sensation diminished at knees and absent distal to knees. He has a T11 sensory level to pinprick. CEREBELLAR: No limb ataxia in upper extremities. Assessment/Plan ASSESSMENT: 63-year-old man with history of remote extensive sacral osteomyelitis and morbid obesity who has had acute on chronic sensory and motor issues since around July 23, 2024. Exam reveals a T11 sensory level and he complains of noxious paresthesias and sensory decrement throughout bilateral lower extremities completely; thoracic spine is checked out. He has developed a new urinary incontinence issue, and has sensory changes in his groin region, and might be retaining urine today. MRI of his lumbarspine (without contrast) shows severe central canal stenosis at L4-5 mostly due to posterior epidural lipomatosis (looks worst at series 10 image 33); strongly consider cauda equina syndrome related to that (legs weak, legs painful, sensory loss in legs, new urinary incontinence, possible urinary retention). I do not think there is compressive effect on his conus medullaris. He has recent toe amputations due to osteomyelitis; also consider epidural abscess. PLAN: 1. Bladder scan 2. MRI thoracic spine with and without contrast 3. Blood cultures 4. Some neuropathy lab work: B12, RPR, EMILI, SPEP, immunofixation 5. Strong consideration for neurosurgical evaluation 1. Bilateral leg pain (M79.604: Pain in right leg) 2. Chest pain (R07.9: Chest pain, unspecified) 3. Venous stasis dermatitis (I87.2: Venous insufficiency (chronic) (peripheral)) 4. Diastolic congestive heart failure (I50.30: Unspecified diastolic (congestive) heart failure) 5. PAF (paroxysmal atrial fibrillation) (I48.0: Paroxysmal atrial fibrillation) 6. Coronary artery disease (I25.10: Athe (more content not included)...[facility] HospitalComment on above:Result Comment: Electronically Signed By: Danica Peter RN\.br\Date and Time Signed: 07/26/24 08:14 EDT\.br\Electronically Co-Signed By: Magdi John DO\.br\Date and Time Co- Signed: 07/26/24 10:01 [id number] NoteEchocardiology Procedure Exam Date/Time Accession # Ordering Dr. Yanes Transthoracic w/ 07/25/2024 16:36 EDT [id number] Tanesha BARRY, Contrast Zuri L CPT code 99775 C8929 Reason for Exam (Echo Transthoracic w/ Contrast) Chest pain Report [facility] [address] [place] [address] Adult Echocardiogram Report Name: MATT WATERMAN Study Date: 07/25/2024 03:02 PM BP: 158/82 mmHg Patient Location: [id number] [facility] Bed(s) [facility] HR: 71 : 1960 Gender: Male Height: 71 in Age: 63 yrs Ethnicity: [facility] Weight: 282 lb Reason For Study: Chest pain BSA: 2.4 m2 History: CAD, PCI, GA, AFIB, CHF, COPD, DM, DVT, HTN, ROBYN Ordering Physician: Zuri Almendarez Performed By: Pamela Marion RDCS Interpretation Summary Moderate to severe left ventricular hypertrophy. Left ventricular systolic function is normal. Ejection Fraction = >70%. The left ventricular wall motion is normal. Grade I diastolic dysfunction, (abnormal relaxation pattern). There is no pericardial effusion. No significant valvular disease. Procedure A complete two-dimensional transthoracic echocardiogram was performed using contrast (2D, M-mode, spectral and color flow Doppler). Definity contrast was administered. Left Ventricle The left ventricle is normal in size. moderate to severe left ventricular hypertrophy. Left ventricular systolic function is normal. Ejection Fraction = >70%. The left ventricular wall motion is normal. Grade I diastolic dysfunction, Echocardiology Report (abnormal relaxation pattern). Left Atrium The left atrium is grossly normal. There is no atrial septal defect. Right Atrium The right atrium is grossly normal. Right Ventricle The right ventricular systolic function is normal. The right ventricle is not well visualized. Aortic Valve The trileaflet aortic valve opening is normal. No aortic regurgitation. There is no aortic stenosis. Mitral Valve The mitral valve is grossly normal. There is no mitral regurgitation noted. No mitral valve stenosis. Tricuspid Valve The tricuspid valve is grossly normal. No evidence of tricuspid regurgitation. No evidence of tricuspid stenosis. Pulmonic Valve The pulmonic valve is normal. Trace pulmonic valvular regurgitation. No evidence of stenosis. Arteries The aortic root is normal in size. Normal ascending aorta. Venous The inferior vena cava is normal in size, and collapses normally with respiration. Effusion There is no pericardial effusion. MMode/2D Measurements & Calculations RVDd: 3.2 cm LVIDd: 4.4 cm FS: 50.6 % Ao root diam: 3.6 cm IVSd: 1.7 cm LVIDs: 2.2 cm EDV(Teich): 88.8 ml LVPWd: 1.5 cm ESV(Teich): 15.9 ml Ao root area: 10.4 cm2 EF(Teich): 82.1 % LA dimension: 3.9 cm asc Aorta Diam: 3.6 cm LVOT diam: 3.0 cm LVLd ap4: 9.2 cm EDV(MOD-sp2): 104.0 ml LVOT area: 7.2 cm2 EDV(MOD-sp4): 138.0 ml ESV(MOD-sp2): 37.4 ml LVLs ap4: 7.4 cm EF(MOD-sp2): 64.0 % ESV(MOD-sp4): 40.1 ml EF(MOD-sp4): 70.9 % SV(MOD-sp4): 97.9 ml TAPSE: 1.8 cm Ao Sinus of Valsalva: 3.8 cm Ao Sinotubular Junction: 3.0 cm IVC Diam: 1.8 cm RVIDd/LVIDd: 0.73 EF (MOD-bp): 69.0 % LA Vol Index: 26.1 ml/m2 Echocardiology Report Doppler Measurements & Calculations MV E max shai: 86.7 cm/sec MV dec time: 0.23 sec Ao V2 max: 130.3 cm/sec LV V1 max P.4 mmHg MV A max shai: 114.0 cm/sec Ao max P.8 mmHg LV V1 max: 77.1 cm/sec MV E/A: 0.76 Lat Peak E' Shai: 6.0 cm/sec ZIA(V,D): 4.2 cm2 E/E' Lat: 14.5 Med Peak E' Shai: 4.7 cm/sec E/E' Med: 18.5 AV VR: 0.59 FINAL REPORT Dictated: 07/25/2024 3:02 pm Bart Shannon MD Signed (Electronic Signature): 07/25/2024 5:32 pm Signed by: Bart Shannon MD Transcribed by: COLLEEN Technologist: [facility]03-17-2025 Note Procedure - Wound Procedure Name Debridement of coccygeal pressure ulcer Consent Written consent Indication 63-year-old male with extensive medical history consulted for evaluation of chronic coccygeal ulcerpresent since 2004. Pre-Procedure Exam Technique After obtaining informed consent patient was positioned in the standing position at the request andthe stage III coccygeal wound was identified.The wound measured 4 x 1 x 0.3 cm with no tunneling orundermining identified. There was fibrinous exudate noted in the base of the wound. The wound was debrided using a curette. It was until there was a small punctate hemorrhage noting healthy tissue. Hemostasis was achieved by holding pressure. A clean dressing was applied. The patient tolerated the procedure without difficulty. Assessment/Plan 1. Bilateral leg pain (M79.604: Pain in right leg) 2. Chest pain (R07.9: Chest pain, unspecified) 3. Venous stasis dermatitis (I87.2: Venous insufficiency (chronic) (peripheral)) 4. Diastolic congestive heart failure (I50.30: Unspecified diastolic (congestive) heart failure) 5. PAF (paroxysmal atrial fibrillation) (I48.0: Paroxysmal atrial fibrillation) 6. Coronary artery disease (I25.10: Atherosclerotic heart disease of [place] coronary artery withoutangina pectoris) 7. COPD mixed type (J44.9: Chronic obstructive pulmonary disease, unspecified) 8. ROBYN (obstructive sleep apnea) (G47.33: Obstructive sleep apnea (adult) (pediatric)) 9. Diabetes type 2 (E11.9: Type 2 diabetes mellitus without complications) 10. Hypertension (I10: Essential (primary) hypertension) 11. Hyperlipidemia (E78.5: Hyperlipidemia, unspecified) 12. Bipolar disorder (F31.9: Bipolar disorder, unspecified) 13. History of DVT in adulthood (Z86.718: Personal history of other venous thrombosis and embolism) 14. History of osteomyelitis (Z87.39: Personal history of other diseases of the musculoskeletal system and connective tissue) 15. Decubitus ulcer of coccyx (L89.159: Pressure ulcer of sacral region, unspecified stage) Dressing care instructions are for Selvin applied to the wound change daily Orders: US Lower Extremity Venous Duplex Insufficiency [facility] 07-25-2024 NoteConsultation Note Chief Complaint leg pain/swelling, chest pain, nausea, vomiting History of Present Illness 63-year-old male with history of chronic combined systolic and diastolic heart failure atrial fibrillation on apixaban coronary artery disease status post stent x 2 COPD ROBYN chronic hypoxic respiratory failure in need of oxygen at home afw-hyniqzd-ogpfzmaei diabetes right lower extremity TMA in 2022, chronic sacral decubitus ulcer [facility] the [facility] including with various collagen agents and hyperbaric oxygen therapy since 2004 was admittedwith leg pain and swelling chest pain nausea vomiting. Wound care and general surgery were consulted for evaluation of chronic coccygeal pressure ulcer Physical Exam Vitals & Measurements T: 36.4 ???C(Axillary) TMIN: 36.4 ???C(Axillary) TMAX: 36.7 ???C(Axillary) HR: 70(Monitored) RR: 18BP: 158/82 SpO2: 98% WT: 128.8 kg Coccygeal wound: Fibrinous exudate noted in base of wound, wound measures 4 x 1 x 0.3 cm with no tunneling or undermining. Bilateral lower extremity edema with lipodermatosclerosis pitting edema and erythema noted there are no open ulcers noted at this time. Unable to palpate DP or PT pulses in either lower extremity Assessment/Plan 1. Bilateral leg pain (M79.604: Pain in right leg) Agree with venous duplex and venous insufficiency study. 2. Chest pain (R07.9: Chest pain, unspecified) 3. Venous stasis dermatitis (I87.2: Venous insufficiency (chronic) (peripheral)) Recommend compression with double Tubigrip's elevate legs above the level of the heart would obtainPVRs and ABIs to assess status of arterial inflow prior to higher levels of compression. We have also ordered a bilateral venous insufficiency study to assess for venous reflux 4. Diastolic congestive heart failure (I50.30: Unspecified diastolic (congestive) heart failure) 5. PAF (paroxysmal atrial fibrillation) (I48.0: Paroxysmal atrial fibrillation) 6. Coronary artery disease (I25.10: Atherosclerotic heart disease of [place] coronary artery withoutangina pectoris) 7. COPD mixed type (J44.9: Chronic obstructive pulmonary disease, unspecified) 8. ROBYN (obstructive sleep apnea) (G47.33: Obstructive sleep apnea (adult) (pediatric)) 9. Diabetes type 2 (E11.9: Type 2 diabetes mellitus without complications) Agree with sliding scale insulin and rigorous management of patient's glucose 10. Hypertension (I10: Essential (primary) hypertension) 11. Hyperlipidemia (E78.5: Hyperlipidemia, unspecified) 12. Bipolar disorder (F31.9: Bipolar disorder, unspecified) 13. History of DVT in adulthood (Z86.718: Personal history of other venous thrombosis and embolism) 14. History of osteomyelitis (Z87.39: Personal history of other diseases of the musculoskeletal system and connective tissue) 15. Decubitus ulcer of coccyx (L89.159: Pressure ulcer of sacral region, unspecified stage) Subcutaneous debridement of wound at the bedside. Recommend Selvin change dressings every other day Orders: US Lower Extremity Venous Duplex Insufficiency Bilat Portions of this record may have been created with voice recognition artificial intelligence software, specifically [employer], [employer] and or [employer]. Substitutions may have occurred due to the inherent limitations of voice recognition and artificial intelligence software. Total time spent preparing the chart, conducting of the encounter with the patient and family and time spent documenting, reviewing, and ordering tests was 80 minutes 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 Flank pain History of DVT in adulthood Hyperlipidemia Hypertension Incomplete bladder emptying Incontinence without sensory awareness Morbid obesity due to excess calories Nocturia Obstructive sleep apnea ROBYN on CPAP Osteomyelitis PAF (paroxysmal atrial fibrillation) Personal history of kidney stones Urgency incontinence Urinary retention Historical No qualifying data Procedure/Surgical History Wound debridement (08/13/2022), Incision AND drainage (06/20/2022), Incision AND drainage (05/23/2022), Amputation great toe (04/16/2022), Skin graft (11/02/2019), Amputated toe, Appendectomy, Colonoscopy, Cystoscopy, Gastric bypass. Medications Inpatient acetaminophen 325 mg Tab, 650 mg= 2 tab(s), Oral, q6hr, PRN Al hydroxide/Mg hydroxide/simethicone 200 mg-200 mg-20 mg/5 mL oral suspension, 30 mL, Oral, q6hr, PRN aspirin 81 mg Chew Tab, 81 mg= 1 tab (more content not included)...[facility] HospitalComment on above:Result Comment: Electronically Signed By: Katelyn GILBERT, Mark Gutierrez.domenic\Date and Time Signed: 07/25/24 09:20 [id number] NoteProgress Note-Physician Basic Information 63-year-old male with past medical history positive for diastolic heart failure, PAF, CAD with prior PCI, COPD, diabetes, hypertension hyperlipidemia, bipolar, history of DVT and past, osteomyelitis status post right TMA, and morbid obesity currently admitted for progressive lower extremity pain Assessment/Plan 1. Bilateral leg pain (M79.604: Pain in right leg) Patient has recent diagnosis of CRPS (complex regional pain syndrome), started on gabapentin CRP normal, Sed Rate slightly elevated Venous Duplex pending -Will also check PVRs -Check Lumbar spine MRI w/wo contrast -PRN oxycodone 2. Chest pain (R07.9: Chest pain, unspecified) Atypical with negative cardiac enzymes, non-acute ECG. -Will update echocardiogram -Plan for out patient stress test if echo normal, unless clinically worsens 3. Venous stasis dermatitis (I87.2: Venous insufficiency (chronic) (peripheral)) Present on BLE -Elevate LE -Venous Duplex pending 4. Diastolic congestive heart failure (I50.30: Unspecified diastolic (congestive) heart failure) Concern for acute on chronic diastolic heart failure. Echo 04/15/22 EF 65-70%, no significant valvular disease, impaired diastole BNP only slightly elevated, CXR negative Bumex 3 mg BID, Coreg and Entresto BID -Update echocardiogram 5. PAF (paroxysmal atrial fibrillation) (I48.0: Paroxysmal atrial fibrillation) Eliquis 2.5 mg BID (dosed this way per his underpresser hand due to bleeding to foot) 6. Coronary artery disease (I25.10: Atherosclerotic heart disease of [place] coronary artery withoutangina pectoris) CAD with history of prior PCI GDMT: asa, statin, beta shayan, Imdur 7. COPD mixed type (J44.9: Chronic obstructive pulmonary disease, unspecified) No acute exacerbation present 8. ROBYN (obstructive sleep apnea) (G47.33: Obstructive sleep apnea (adult) (pediatric)) Supportive care 9. Diabetes type 2 (E11.9: Type 2 diabetes mellitus without complications) Uncontrolled, A1C 7.7 Will hold metformin -AccuCheck AC/HS with SSI 10. Hypertension (I10: Essential (primary) hypertension) BP is normotensive 11. Hyperlipidemia (E78.5: Hyperlipidemia, unspecified) Atorvastatin 12. Bipolar disorder (F31.9: Bipolar disorder, unspecified) Clinically stable 13. History of DVT in adulthood (Z86.718: Personal history of other venous thrombosis and embolism) On low dose Eliquis due to recent bleeding issues related to his right foot 14. History of osteomyelitis (Z87.39: Personal history of other diseases of the musculoskeletal system and connective tissue) s/p right TMA Wound looks free of infection. He does have some slough present medially but it does not appear purulent. Also has a small tunneling area laterally which patient states is known 15. Decubitus ulcer of coccyx (L89.159: Pressure ulcer of sacral region, unspecified stage) Pressure ulcer, present on admit Stage III with tunneling -Wound care power plan for now -Consult wound- may need Dr Zepeda to evaluate -No fevers, leukocytosis Orders: Communication Order Consult to Wound Care Dressing Care/Change Dressing Care/Change MRI Spine Lumbar w/ + w/o Contrast US PVR Lower EXT Complete Bilat DNR CCA DVT Prophylaxis: NOAC PT/OT recommending SNF Subjective Still with leg pain, having difficulty walking now, but the pain actually gets better with walking.Other ROS positive- CP, SOB, nausea. Review of Systems Additional ROS info: Except as noted in the above Review of Systems and in the History of Present Illness all other systems have been reviewed and are negative or noncontributory Objective Vitals & Measurements T: 36.6 ???C(Axillary) TMIN: 36.4 ???C(Axillary) TMAX: 36.6 ???C(Axillary) HR: 66(Monitored) RR: 18BP: 138/76 SpO2: 99% HT: 180 cm WT: 135.3 kg Intake & Output This visit (24 hour periods starting at 07:00 EDT) 07/24/24 * 07/23/24 07/22/24 Total Summary Intake mL -- 14 -- Output mL -- -- -- Fluid Balance -- 14 -- Intake (2) bumetanide mL -- 12 -- ondansetron mL -- 2 -- Total -- 14 -- Output (0) Counts (0) * This column has not completed the indicated time period. Physical Exam General: Obese adult male. Alert, calm, NAD Eyes: PERRLA, intact EOM HEENT: Mucous membrane and tongue normal . Neck: supple, no JVD Lungs: on RA, lungs CTA Cardio: Regular S1, S2, Good perfusion Pulses: Normal capillary refill Abdomen: Obese, soft, non-distended, non-tender, + BS x4 Musculoskeletal: No deformity or scoliosis noted. Normal ROM for age. Integumentary: Warm, dry, lower legs with venous stasis dermatitis appearance, right foot TMA surgical dressing intact, stage III coccyx wound Extremity: No clubbing, 2+ below the knee edema, appears chronic Neurologic: Alert, oriented x 4 follows commands, no obvious focal deficits Mental status: Pleasant & cooperative, normal judgment (more content not included)...[facility] HospitalComment on above:Result Comment: Electronically Signed By: Zuri Almendarez CNP\.br\Date and Time Signed: 07/24/24 19:52 EDT\.br\Electronically Co-Signed By: VAMSI GILBERT, [id number] NoteProgress Note-Physician Basic Information 63-year-old male with past medical history positive for diastolic heart failure, PAF, CAD with prior PCI, COPD, diabetes, hypertension hyperlipidemia, bipolar, history of DVT and past, osteomyelitis status post right TMA, and morbid obesity currently admitted for progressive lower extremity pain Assessment/Plan 1. Bilateral leg pain (M79.604: Pain in right leg) Patient has recent diagnosis of CRPS (complex regional pain syndrome), started on gabapentin CRP normal, Sed Rate slightly elevated Venous Duplex pending -Will also check PVRs -Check Lumbar spine MRI w/wo contrast -PRN oxycodone 2. Chest pain (R07.9: Chest pain, unspecified) Atypical with negative cardiac enzymes, non-acute ECG. -Will update echocardiogram -Plan for out patient stress test if echo normal, unless clinically worsens 3. Venous stasis dermatitis (I87.2: Venous insufficiency (chronic) (peripheral)) Present on BLE -Elevate LE -Venous Duplex pending 4. Diastolic congestive heart failure (I50.30: Unspecified diastolic (congestive) heart failure) Concern for acute on chronic diastolic heart failure. Echo 04/15/22 EF 65-70%, no significant valvular disease, impaired diastole BNP only slightly elevated, CXR negative Bumex 3 mg BID, Coreg and Entresto BID -Update echocardiogram 5. PAF (paroxysmal atrial fibrillation) (I48.0: Paroxysmal atrial fibrillation) Eliquis 2.5 mg BID (dosed this way per his underpresser hand due to bleeding to foot) 6. Coronary artery disease (I25.10: Atherosclerotic heart disease of [place] coronary artery withoutangina pectoris) CAD with history of prior PCI GDMT: asa, statin, beta shayan, Imdur 7. COPD mixed type (J44.9: Chronic obstructive pulmonary disease, unspecified) No acute exacerbation present 8. ROBYN (obstructive sleep apnea) (G47.33: Obstructive sleep apnea (adult) (pediatric)) Supportive care 9. Diabetes type 2 (E11.9: Type 2 diabetes mellitus without complications) Uncontrolled, A1C 7.7 Will hold metformin -AccuCheck AC/HS with SSI 10. Hypertension (I10: Essential (primary) hypertension) BP is normotensive 11. Hyperlipidemia (E78.5: Hyperlipidemia, unspecified) Atorvastatin 12. Bipolar disorder (F31.9: Bipolar disorder, unspecified) Clinically stable 13. History of DVT in adulthood (Z86.718: Personal history of other venous thrombosis and embolism) On low dose Eliquis due to recent bleeding issues related to his right foot 14. History of osteomyelitis (Z87.39: Personal history of other diseases of the musculoskeletal system and connective tissue) s/p right TMA Wound looks free of infection. He does have some slough present medially but it does not appear purulent. Also has a small tunneling area laterally which patient states is known 15. Decubitus ulcer of coccyx (L89.159: Pressure ulcer of sacral region, unspecified stage) Pressure ulcer, present on admit Stage III with tunneling -Wound care power plan for now -Consult wound- may need Dr Zepeda to evaluate -No fevers, leukocytosis Orders: Communication Order Consult to Wound Care Dressing Care/Change Dressing Care/Change MRI Spine Lumbar w/ + w/o Contrast US PVR Lower EXT Complete Bilat DNR CCA DVT Prophylaxis: NOAC PT/OT recommending SNF Subjective Still with leg pain, having difficulty walking now, but the pain actually gets better with walking.Other ROS positive- CP, SOB, nausea. Review of Systems Additional ROS info: Except as noted in the above Review of Systems and in the History of Present Illness all other systems have been reviewed and are negative or noncontributory Objective Vitals & Measurements T: 36.6 ???C(Axillary) TMIN: 36.4 ???C(Axillary) TMAX: 36.6 ???C(Axillary) HR: 66(Monitored) RR: 18BP: 138/76 SpO2: 99% HT: 180 cm WT: 135.3 kg Intake & Output This visit (24 hour periods starting at 07:00 EDT) 07/24/24 * 07/23/24 07/22/24 Total Summary Intake mL -- 14 -- Output mL -- -- -- Fluid Balance -- 14 -- Intake (2) bumetanide mL -- 12 -- ondansetron mL -- 2 -- Total -- 14 -- Output (0) Counts (0) * This column has not completed the indicated time period. Physical Exam General: Obese adult male. Alert, calm, NAD Eyes: PERRLA, intact EOM HEENT: Mucous membrane and tongue normal . Neck: supple, no JVD Lungs: on RA, lungs CTA Cardio: Regular S1, S2, Good perfusion Pulses: Normal capillary refill Abdomen: Obese, soft, non-distended, non-tender, + BS x4 Musculoskeletal: No deformity or scoliosis noted. Normal ROM for age. Integumentary: Warm, dry, lower legs with venous stasis dermatitis appearance, right foot TMA surgical dressing intact, stage III coccyx wound Extremity: No clubbing, 2+ below the knee edema, appears chronic Neurologic: Alert, oriented x 4 follows commands, no obvious focal deficits Mental status: Pleasant & cooperative, normal judgment (more content not included)...[facility] HospitalComment on above:Result Comment: Electronically Signed By: Zuri Almendarez CNP\.br\Date and Time Signed: 07/24/24 19:52 EDT\.br\Electronically Co-Signed By: Mimi COLIN MD\.br\Date and Time Co-Signed: 07/25/24 11:46 [id number] NoteProgress Note-Physician Basic Information 63-year-old male with past medical history positive for diastolic heart failure, PAF, CAD with prior PCI, COPD, diabetes, hypertension hyperlipidemia, bipolar, history of DVT and past, osteomyelitis status post right TMA, and morbid obesity currently admitted for progressive lower extremity pain Assessment/Plan 1. Bilateral leg pain (M79.604: Pain in right leg) Patient has recent diagnosis of CRPS (complex regional pain syndrome), started on gabapentin CRP normal, Sed Rate slightly elevated Venous Duplex pending -Will also check PVRs -Check Lumbar spine MRI w/wo contrast -PRN oxycodone 2. Chest pain (R07.9: Chest pain, unspecified) Atypical with negative cardiac enzymes, non-acute ECG. -Will update echocardiogram -Plan for out patient stress test if echo normal, unless clinically worsens 3. Venous stasis dermatitis (I87.2: Venous insufficiency (chronic) (peripheral)) Present on BLE -Elevate LE -Venous Duplex pending 4. Diastolic congestive heart failure (I50.30: Unspecified diastolic (congestive) heart failure) Concern for acute on chronic diastolic heart failure. Echo 04/15/22 EF 65-70%, no significant valvular disease, impaired diastole BNP only slightly elevated, CXR negative Bumex 3 mg BID, Coreg and Entresto BID -Update echocardiogram 5. PAF (paroxysmal atrial fibrillation) (I48.0: Paroxysmal atrial fibrillation) Eliquis 2.5 mg BID (dosed this way per his underpresser hand due to bleeding to foot) 6. Coronary artery disease (I25.10: Atherosclerotic heart disease of [place] coronary artery withoutangina pectoris) CAD with history of prior PCI GDMT: asa, statin, beta shayan, Imdur 7. COPD mixed type (J44.9: Chronic obstructive pulmonary disease, unspecified) No acute exacerbation present 8. ROBYN (obstructive sleep apnea) (G47.33: Obstructive sleep apnea (adult) (pediatric)) Supportive care 9. Diabetes type 2 (E11.9: Type 2 diabetes mellitus without complications) Uncontrolled, A1C 7.7 Will hold metformin -AccuCheck AC/HS with SSI 10. Hypertension (I10: Essential (primary) hypertension) BP is normotensive 11. Hyperlipidemia (E78.5: Hyperlipidemia, unspecified) Atorvastatin 12. Bipolar disorder (F31.9: Bipolar disorder, unspecified) Clinically stable 13. History of DVT in adulthood (Z86.718: Personal history of other venous thrombosis and embolism) On low dose Eliquis due to recent bleeding issues related to his right foot 14. History of osteomyelitis (Z87.39: Personal history of other diseases of the musculoskeletal system and connective tissue) s/p right TMA Wound looks free of infection. He does have some slough present medially but it does not appear purulent. Also has a small tunneling area laterally which patient states is known 15. Decubitus ulcer of coccyx (L89.159: Pressure ulcer of sacral region, unspecified stage) Pressure ulcer, present on admit Stage III with tunneling -Wound care power plan for now -Consult wound- may need Dr Zepeda to evaluate -No fevers, leukocytosis Orders: Communication Order Consult to Wound Care Dressing Care/Change Dressing Care/Change MRI Spine Lumbar w/ + w/o Contrast US PVR Lower EXT Complete Bilat DNR CCA DVT Prophylaxis: NOAC PT/OT recommending SNF Subjective Still with leg pain, having difficulty walking now, but the pain actually gets better with walking.Other ROS positive- CP, SOB, nausea. Review of Systems Additional ROS info: Except as noted in the above Review of Systems and in the History of Present Illness all other systems have been reviewed and are negative or noncontributory Objective Vitals & Measurements T: 36.6 ???C(Axillary) TMIN: 36.4 ???C(Axillary) TMAX: 36.6 ???C(Axillary) HR: 66(Monitored) RR: 18BP: 138/76 SpO2: 99% HT: 180 cm WT: 135.3 kg Intake & Output This visit (24 hour periods starting at 07:00 EDT) 07/24/24 * 07/23/24 07/22/24 Total Summary Intake mL -- 14 -- Output mL -- -- -- Fluid Balance -- 14 -- Intake (2) bumetanide mL -- 12 -- ondansetron mL -- 2 -- Total -- 14 -- Output (0) Counts (0) * This column has not completed the indicated time period. Physical Exam General: Obese adult male. Alert, calm, NAD Eyes: PERRLA, intact EOM HEENT: Mucous membrane and tongue normal . Neck: supple, no JVD Lungs: on RA, lungs CTA Cardio: Regular S1, S2, Good perfusion Pulses: Normal capillary refill Abdomen: Obese, soft, non-distended, non-tender, + BS x4 Musculoskeletal: No deformity or scoliosis noted. Normal ROM for age. Integumentary: Warm, dry, lower legs with venous stasis dermatitis appearance, right foot TMA surgical dressing intact, stage III coccyx wound Extremity: No clubbing, 2+ below the knee edema, appears chronic Neurologic: Alert, oriented x 4 follows commands, no obvious focal deficits Mental status: Pleasant & cooperative, normal judgment (more content not included)...[facility] HospitalComment on above:Result Comment: Electronically Signed By: Zuri Almendarez CNP\.domenic\Date and Time Signed: 07/24/24 12:15 EDT\.br\Electronically Co-Signed By: VAMSI GILBERT, Mimi\.br\Date and Time Co-Signed: 07/24/24 14:53 [id number] Note Interdisciplinary Note - PT PT Evaluation done this date. Pt. with 05/03 on AM-PAC this date. Mod Ax1 with sit <> stand transfers, unable to take steps due to weakness and increased bilateral LE pain. Recommend SNF.[facility]03-16-20[facility] Note Progress Note-Nurse Patient declined set-up of bed alarm and use of a walker. Educated about the importance of such butrefused. Other safety measures initiated. Rendering of Nursing care on-going.[facility]03-15-2025 NoteHistory and Physical Chief Complaint leg pain/swelling, chest pain, nausea, vomiting History of Present Illness 62-year-old morbidly obese male with history of chronic combined systolic and diastolic congestive heart failure, paroxysmal atrial fibrillation on apixaban, coronary artery disease status post stent x2, COPD, obstructive sleep apnea on BiPAP, chronic hypoxic respiratory failure on as needed OXYGEN, [id number] diabetes mellitus, hypertension, hyperlipidemia, bipolar disorder,BPH, anxiety, status post right foot TMA in 01/2023. Patient reports to the emergency arm with bilateral leg pain. He states for the past 3 days he has had severe pain in both of his legs from the knees on down. He reports some skin changes where his anterior aspect of his legs appear darker. He thought he had an underlying infection. Pain is sharp like someone is stabbing him with a knife. He is status post a right TMA in January 2023. This is still not healed completely. He states he has hada total of 9 surgeries to that right foot. His right leg does appear more swollen than the left. The pain is limiting his ambulation. If he rests it does get better. Denies back pain. He has been comp liant with his oral Bumex. He also gets IV Bumex 2 times a week at [facility] per his underpresser hand. He got a dose of it yesterday. One month ago his Eliquis was decreased to 2.5 mg BID due toissues with bleeding from his surgical site of his right foot. He does report a prior history of DVT. Also states he recently got diagnosed with a rheumatologic autoimmune condition. It sounds like it is complex regional pain syndrome based on what he is describing. He is already on Neurontin. He was on steroids in the past but his underpresser hand wanted him off of them. He also vaguely complained of some chest pressure in the emergency room. This started yesterday. Itcomes and goes but is around more than it is not. It did radiate into his bottom jaw. He also mentions shortness of breath with exertion. ED Course: Fairly unremarkable. Lab work looks OK. No fever of WBC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 male admitted fo r right leg, right foot cellulitis secondary to right foot osteomyelitis secondary to diabetes mellitus. He has a history of coronary artery disease status post stent x2, chronic combined systolic and diastolic CHF, PAF on apixaban, COPD, obstructive sleep apnea on BiPAP, chronic hypoxic respiratory failure with as needed home O2 and atx-eurjayz-gttjgkfso type 2 diabetes, hypertension, hyperlipidemia, bipolar disorder, [...] artery disease (I25.10: Atherosclerotic heart disease of [place] coronary artery withoutangina pectoris) As above #4 but also on [...] deep vein thrombosis (DVT) prophylaxis (Z79.899: Other lobsterman (current) drug therapy) On apixaban Orders: Basic Metabolic Panel eGFR Extra Lav Tube Referral to Resource Center PLAN: 1. Refer to above 2. Awaiting ID input regarding outpatient antibiotic therapy 3. Discharge planning later today Extracted from:Title:Infection Admission H&P *Author:Ronaldo Arcos M.D SDate: 01/13/23 Impression and Plan Diagnosis Right foot infection with cellulitis . Orders In looking back at the year patient has had various positive cultures from his right foot. There isdifferent MSSA's along with other gram-positive organisms and [...] time would favor awaiting the 01/11 culture pdamini finalized before decision on discharge could be made. Obviously failed doxycycline. If able could choose an oral quinolone but previous isolates from this patient has shown resistance to quinolones. . Extracted from:Title:Progress/SOAP NoteAuthor:Javon Edwards DODate:01/12/23 62-year-old male admitted fo r right leg, right foot cellulitis secondary to right foot osteomyelitis secondary to diabetes mellitus. He has a history of coronary artery disease status post stent x2, chronic combined systolic and diastolic CHF, PAF on apixaban, COPD, obstructive sleep apnea on BiPAP, chronic hypoxic respiratory failure with as needed home O2 and axv-imphrkx-pulntwamq type 2 diabetes, hypertension, hyperlipidemia, bipolar disorder, [...] artery disease (I25.10: Atherosclerotic heart disease of [place] coronary artery withoutangina pectoris) See #4; also on aspirin, Lipitor [...] deep vein thrombosis (DVT) prophylaxis (Z79.899: Other half-way (current) drug therapy) On apixaban PLAN: 1. Refer to above 2. Await podiatry input today; if this is chronic as the patient states has been in the past, he may be able to go home later today or tomorrow where he may require further intervention per podiatry Extracted from:Title:SOAP Note: podiatryAuthor:Santos Epperson DPM RDate:01/11/23 Patient: MATT WATERMAN Age: 62 years Sex: Male : 1960 Associated Diagnoses: None Author: Santos Epperson DPM Subjective Chief complaint 01/10/2023 15:22 EDT cellulitis and foot infection 01/10/2023 12:16 EDT started doxy po four days ago for right leg cellulitis. dr epperson wanted to admitfor iv antibiotics if outpt antibiotics failed. pt reports redness is worsening. . Health Status Allergies: Allergic Reactions (Selected) Severity Not Documented GoLYTELY- Rash. Phenergan- Shortness of breath. Reglan- Twitching and rash. Sulfa drugs- Rash. Problem list: All Problems (Selected) Anxiety / SNOMED CT 02792614 / Confirmed Aortic root dilation / SNOMED CT 420927668 / Confirmed At risk for falls / SNOMED CT 305651459 / Possible Problem added when Risk for Falls Careplan was initiated. Atrial fibrillation / SNOMED CT 66465209 / Confirmed BPH (benign prostatic hyperplasia) / SNOMED CT 540321091 / Confirmed BPH with urinary obstruction / SNOMED CT 6353440312 / Confirmed BPH without urinary obstruction / SNOMED CT 9474616731 / Confirmed Bipolar disorder / SNOMED CT 19298702 / Confirmed BMI 35.0-35.9,adult / SNOMED CT 863405988 / Confirmed CAD - Coronary artery disease / SNOMED CT 6149807197 / Confirmed Chronic anemia / SNOMED CT 055578846 / Confirmed Chronic diastolic heart failure / SNOMED CT 1038132722 / Confirmed COPD (chronic obstructive pulmonary disease) / SNOMED CT 47621835 / Confirmed COPD without exacerbation / SNOMED CT 99440863 / Confirmed Chronic systolic heart failure / SNOMED CT 4338965363 / Confirmed CHF (congestive heart failure) / SNOMED CT 35649910 / Confirmed Coronary artery disease / SNOMED CT 95427444 / Confirmed DVT (deep venous thrombosis) / SNOMED CT 361768207 / Confirmed Diabetes / SNOMED CT 022404792 / Confirmed Diabetic peripheral neuropathy / SNOMED CT 3696422099 / Confirmed DM - Diabetes mellitus / SNOMED CT 232442582 / Confirmed ESBL 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 / SNOMED CT 5924448121 / Confirmed ESBL E coli in rt foot wound 08/14/2022 Flank pain / SNOMED CT 837410396 / Confirmed Chronic GERD / SNOMED CT 844280307 / Confirmed Personal history of kidney stones / SNOMED CT 8235196711 / Confirmed History of DVT in adulthood / SNOMED CT 2422584325 / Confirmed Hyperlipidemia / SNOMED CT 22877990 / Confirmed Hypertension / SNOMED CT 2725030563 / Confirmed Incomplete bladder emptying / SNOMED CT 636380153 / Confirmed Incontinence without sensory awareness / SNOMED CT 2949606919 / Confirmed Depression with anxiety / SNOMED CT 874973081 / Confirmed Morbid obesity due to excess calories / SNOMED CT 686958478 / Confirmed GA (myocardial infarction) / SNOMED CT 11141391 / Confirmed Diabetic neuropathy / SNOMED CT 1294276629 / Confirmed Nocturia / SNOMED CT 305367177 / Confirmed ROBYN on CPAP / SNOMED CT 577733590 / Confirmed Obstructive sleep apnea / SNOMED CT 304848639 / Confirmed Osteomyelitis / SNOMED CT 55362202 / Confirmed PAF (paroxysmal atrial fibrillation) / SNOMED CT 857560913 / Confirmed Urinary retention / SNOMED CT 325953143 / Confirmed Sleep apnea / SNOMED CT 765681169 / Confirmed Urgency incontinence / SNOMED CT 345356663 / Confirmed Objective SOAP Note: podiatry Patient: MATT BECK Age: 65 years Sex: Male : 06/07/1957 Associated Diagnoses: None Author: Santos Epperson DPM Subjective pt seen bedside for cellulitis and pain right foot and leg. Pt is well known to the office recentlyhad revision tma right was healed for about 2 months came to the office one week ago with a new wound and failed oral antibiotics. pt states he had GA in october and has been very tired [...] purulence noted cellulitis is resolving wound about [id number] 3mm depth no malodor mild hyperkeratotic rim vasc: barely palpable pedal pulse b/l nonpitting edema right leg neuro: loss of protective sensation msk: tma right Results Review xray compared to august large changes in lisfranc and 1st ray due to charcot. MRI is pending for today Impression and Plan This 65 y/o male diabetic with h/o recent [place], htn, chronic kidney disease with recent new [...] EDT Results Review General results Interpretation: mri pendingAddendum by Santos Epperson DPM on January 13, 2023 9:01 EDT reviewed mri report ulceration is not involving the 1st met base does not tract continue iv abx andwill await dr Bud boucher no surgery needed pt will need home health for thud thu dressings with betadine to the wound soaked gauze kerlix cast padding x2 and double 6inch lorenza for mirna compression dressing below the knee pt needs to be barely weight bearing just to the bathroom pt prefers [facility] home health Extracted from:Title:APSO NoteAuthor:VAMSI GILBERT, MbanefoDate:01/11/23 62-year-old morbidly obese C aucasian male with history of coronary artery disease status post stent x2, chronic combined systolic and diastolic congestive heart failure, paroxysmal atrial fibrillation on apixaban, COPD, obstructive sleep apnea on BiPAP, chronic hypoxic respiratory failure on as needed home oxygen, mlm-kltbtmv-gifvxqjsu diabetes mellitus, hypertension, hyperlipidemia, bipolar disorder, anxiety, [...] Directed, Routine, Start date 01/10/23 15:06:00 EDT [facility] Hospital Care/Day Moderate 35 Minutes 11247 Wound Care Routine Wound Culture 2. Osteomyelitis [...] Start date 01/10/23 15:06:00 EDT Consult to Archaeologist [facility] Hospital Care/Day Moderate 35 Minutes 04999 Wound Culture 3. COPD without exacerbation (J44.9: Chronic obstructive pulmonary disease, unspecified) Stable. Continue nebulizer treatments. Ordered: [facility] Hospital Care/Day Moderate 35 Minutes 96762 4. Chronic diastolic heart failure (I50.32: Chronic diastolic (congestive) heart failure) Chronic combined systolic and diastolic congestive heart failure. Stable. Continue on Aldactone, Bumex. Ordered: [facility] Hospital Care/Day Moderate 35 Minutes 48043 5. Coronary artery disease (I25.10: Atherosclerotic heart disease of [place] coronary artery withoutangina pectoris) Status post stent x2. Stable. Continue on aspirin and Lipitor. Ordered: [facility] Hospital Care/Day Moderate 35 Minutes 57373 6. Diabetes (E11.9: Type 2 diabetes mellitus [...] deep vein thrombosis (DVT) prophylaxis (Z79.899: Other lobsterman (current) drug therapy) Apixaban. Disposition: Pending MRI of the right foot and podiatry consult. I discussed the diagnosis and plan of care with the patient at the bedside. Moderate level of MDM based on addressing above issues. This documentation was transcribed using voice recognition software. Several attempts were made to ensure accuracy. However inadvertent computerized mail clerk bills errors may be present. Mimi Colin. Hospitalist. Extracted from:Title:Admission H & PAuthor:VAMSI GILBERT, ShimonfoDate:01/10/23 62-year-old morbidly obese C aucasian male with history of coronary artery disease status post stent x2, chronic combined systolic and diastolic congestive heart failure, paroxysmal atrial fibrillation on apixaban, COPD, obstructive sleep apnea on BiPAP, chronic hypoxic respiratory failure on as needed home oxygen, owp-ytvtgue-jmquyslas diabetes mellitus, hypertension, hyperlipidemia, bipolar disorder, anxiety, [...] EDT Initial Hospital Care/Day High 75 Minutes 73475 Wound Care Routine Wound Culture 2. Osteomyelitis [...] Start date 01/10/23 15:06:00 EDT Consult to Archaeologist Initial Hospital Care/Day High 75 Minutes 18255 Wound Culture 3. COPD without exacerbation (J44.9: Chronic obstructive pulmonary disease, unspecified) Stable. Nebulizer treatments as needed. Ordered: Initial Hospital Care/Day High 75 Minutes 80944 4. Chronic diastolic heart failure (I50.32: Chronic diastolic (congestive) heart failure) Chronic combined systolic and diastolic congestive heart failure Stable. Continue on Bumex and Aldactone. Ordered: Initial Hospital Care/Day High 75 Minutes 28591 5. Coronary artery disease (I25.10: Atherosclerotic heart disease of [place] coronary artery withoutangina pectoris) Status post stent x2. Stable. Continue on aspirin, Lipitor. Ordered: Initial Hospital Care/Day High 75 Minutes 06541 6. Diabetes (E11.9: Type 2 diabetes mellitus [...] deep vein thrombosis (DVT) prophylaxis (Z79.899: Other lobsterman (current) drug therapy) Apixaban. Disposition: The patient [...] made to ensure accuracy. However inadvertent computerized mail clerk bills errors may be present. Mimi Colin. Hospitalist. Orders: acetaminophen, 650 mg = 2 tab(s), Tab, Oral, q6hr PRN Pain, Routine, Start date 01/10/23 15:21:00 EDT, 01/10/23 15:21:00 EDT Al hydroxide/Mg hydroxide/simethicone, 30 mL, Susp-Oral, Oral, q6hr PRN Indigestion, Routine, Startdate 01/10/23 15:21:00 EDT diphenhydrAMINE, 25 mg = [...] Tests Pending * Vancomycin Level Trough 01/17/23 [facility]09-07-2023 Hospital Discharge instructions Patient Education 01/15/2023 10:03:30 [...] Follow these instructions at home: Medicines Take ucuw-lzv-ljrxkml and prescription medicines as told by your [...] and water are not available, use hand family practice md. Keep any open areas, cuts, or wounds [...] provider. Document Revised: 07/12/2020 Document Reviewed: 07/12/2020 [employer] Patient Education 2022 [employer]rav. 01/15/2023 10:03:24 Cellulitis, Adult Cellulitis, Adult Cellulitis [...] Follow these instructions at home: Medicines Take fscq-bvx-ezurgrw and prescription medicines only as told by [...] such as antibiotic medicines or antihistamines. Take fzrq-fux-aqclkxv and prescription medicines only as told by [...] provider. Document Revised: 02/06/2022 Document Reviewed: 02/06/2022 [employer] Patient Education 2022 Arav. Follow Up Care 01/10/2023 12:12:35 With:Podiatry as scheduled January 21 Address:Unknown When: Unknown With:SURAJ LIZ Address: [address] [place], [place] [phone]- Business (1) When:01/22/2023 10:30:00 Comments:Call for followup appointment [facility]-30-2023 Evaluation note* Encounter Date Diagnosis Assessment Notes Treatment Notes Treatment Clinical Notes Oct, Hypertension (ICD-10 - I10) chronic problem. Continue present meds. Oct,HF (congestive heart failure) (ICD-10 - I50.9)Pt notes increased symptoms. He will contact his underpresser hand and suspects he will be admitted in the near future for diuresis. Oct,rimary insomnia (ICD-10 - F51.01)states he is stable on his present dose. Oct,mputation of toe of right foot (ICD-10 - S98.131A)Continue to followup w Podiatry. [facility] Other 05-30-2023 Evaluation note* Encounter Date Diagnosis Assessment Notes Treatment Notes Treatment Clinical Notes September, Pain, joint, knee, right (ICD-10 - M25.561) September,Right hip pain (ICD-10 - M25.551) [facility] Other 04-10-2023 Evaluation + Plan noteExtracted from:Title: Discharge NoteAuthor:Kennedy HARRIS MD PDate:08/18/22 Discharge To, Anticipated II - Home with [...] Oral, Daily ergocalciferol 50,000 intl units Cap, 53715 International_Unit= 1 cap(s), Oral, q7day ferrous sulfate [...] tab(s), Oral, Daily fluticasone Nasal 0.05 mg/inh Universal, 2 spray(s), Nasal, Daily, PRN gabapentin 800 [...] Contact Information Reginaldoasuncion Art Within [address] [place] [phone]- fflap (1) Additional Instructions: Call for followup appointment Call physician if symptoms worsen EMILIANA Narvaez In 1 week [facility]: c/o [facility] [address] [facility] [place] [address]- Additional Instructions: An appointment request was sent to [facility]. The office will contact you with an appointment. Thank you! Ronaldo Arcos M.D, INF Within 2 to 4 weeks [address] [place] [address]- Additional Instructions: SURAJ LIZ, FAM Within 2 to 4 days [address] [place] [address]- fflap (1) Additional Instructions: No PCP required for surgery patient. Please follow up with ARGELIA. Thank you! Osteomyelitis, Adult Extracted from:Title:Infection Admission H&P *Author:Ronaldo Arcos M.D SDate: 08/15/22 Impression and Plan Diagnosis Non healing TMA [...] Await cultures. D/w Dr. Austin. . Extracted from:Title:CSB post opAuthor:Alex Goldstein MDDate:08/14/22 Plan Transfer/Discharge: Transfer/Discharge Discharge when meets criteria ( From PACU to floor ). Extracted from:Title:LALA GAAuthor:Alex Goldstein MDDate:08/14/22 Plan Citizen Of [place] Society of Anesthesiologists (ASA) physical status classification: Class IV. Anesthetic Preoperative Plan: Anesthesia General. Extracted from:Title:SOAP Note: PodiatryAuthor:Santos Epperson DPM RDate:08/13/22 Patient: MATT WATERMAN Age: 62 years Sex: Male : 1960 Associated Diagnoses: None Author: Santos Epperson DPM Subjective Chief complaint 08/13/2022 9:16 EDT Sent by wound clinic for right foot wound and right lower leg redness. c/o chills and nausea. . this dm type II s/p tma right that openned up 6 weeks ago was seen in wound care today this am thensent to the ER for admission for abscess [...] All Problems (Selected) Anxiety / SNOMED CT 81708291 / Confirmed Aortic root dilation / SNOMED CT 275262166 / Confirmed Atrial fibrillation / SNOMED CT 89849872 / Confirmed BPH (benign prostatic hyperplasia) / SNOMED CT 243689298 / Confirmed BPH with urinary obstruction / SNOMED CT 1502218978 / Confirmed BPH without urinary obstruction / SNOMED CT 7100127500 / Confirmed Bipolar disorder / SNOMED CT 11660593 / Confirmed BMI 35.0-35.9,adult / SNOMED CT 753804441 / Confirmed CAD - Coronary artery disease / SNOMED CT 1796018066 / Confirmed Chronic anemia / SNOMED CT 687723442 / Confirmed Chronic diastolic heart failure / SNOMED CT 2631743542 / Confirmed COPD (chronic obstructive pulmonary disease) / SNOMED CT 81772598 / Confirmed COPD without exacerbation / SNOMED CT 04108123 / Confirmed Chronic systolic heart failure / SNOMED CT 8568315518 / Confirmed CHF (congestive heart failure) / SNOMED CT 37312387 / Confirmed Coronary artery disease / SNOMED CT 49817653 / Confirmed DVT (deep venous thrombosis) / SNOMED CT 447185186 / Confirmed Diabetes / SNOMED CT 727934371 / Confirmed Diabetic peripheral neuropathy / SNOMED CT 5045878292 / Confirmed DM - Diabetes mellitus / SNOMED CT 100532124 / Confirmed Flank pain / SNOMED CT 955977289 / Confirmed Chronic GERD / SNOMED CT 261781726 / Confirmed Personal history of kidney stones / SNOMED CT 7333542827 / Confirmed History of DVT in adulthood / SNOMED CT 4823414173 / Confirmed Hyperlipidemia / SNOMED CT 35803422 / Confirmed Hypertension / SNOMED CT 8404304382 / Confirmed Incomplete bladder emptying / SNOMED CT 046228060 / Confirmed Incontinence without sensory awareness / SNOMED CT 1757392994 / Confirmed Depression with anxiety / SNOMED CT 772744816 / Confirmed Morbid obesity due to excess calories / SNOMED CT 455015562 / Confirmed GA (myocardial infarction) / SNOMED CT 59041423 / Confirmed Diabetic neuropathy / SNOMED CT 6868831742 / Confirmed Nocturia / SNOMED CT 063542432 / Confirmed ROBYN on CPAP / SNOMED CT 017834294 / Confirmed Obstructive sleep apnea / SNOMED CT 410178069 / Confirmed Osteomyelitis / SNOMED CT 10219988 / Confirmed PAF (paroxysmal atrial fibrillation) / SNOMED CT 987916503 / Confirmed Urinary retention / SNOMED CT 006734115 / Confirmed Sleep apnea / SNOMED CT 606815640 / Confirmed Urgency incontinence / SNOMED CT 322326209 / Confirmed Objective vasc: erythema edema right [...] Dr Ramiro Epperson agrees with above surgical planAddendum by Ramiro Epperson DPM on August 14, 2022 11:21 EDTAgree with the above note planning revisional transmetatarsal amputation with incision and drainagepossible delayed primary closure with skin advancement flap right discussed risk and possible complications with the patient today at bedside including pain swelling numbness to infection need for additional surgery more proximal amputation loss of limb patient fully understood all possible risk and complications and is consented for the above-stated procedure Extracted from:Title:Admission H & PAuthor:THEE GILBERT, AlaaDate:08/13/22 This 62-year-old white male past medical history of morbid obesity, hypertension, hyperlipidemia, coronary disease, diabetes type 2, chronic diastolic heart failure, sleep apnea on CPAP, chronic COPD, depression and anxiety, history of DVT, paroxysmal A-fib, and recent Transmetatarsal amputation of the right foot with advanced closure who 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 Foot osteomyelitis, right (M86.9: Osteomyelitis, unspecified) [...] date 08/13/22 14:06:56 EDT, Physician Stop, 08/13/22 14:06:56EDT morphine, 4 mg = 2 mL, Injection, [...] Date:08/27/2022 11:15:00 AM Scheduled Provider:Santos Epperson DPM [facility] Appoint[facility] Type:WC Follow Up Visit (FT) Appointment Date:09/02/2022 02:15:00 PM Scheduled Provider:Teddy HDZ MD Location:[facility] Appointment Type:URO Office Visit [facility]04-10-2023 Hospital Discharge instructions Patient Education 08/18/2022 10:30:37 [...] Follow these instructions at home: Medicines Take cyhx-bef-ryczvbq and prescription medicines only as told by [...] and water are not available, use hand family practice md. Do not use any products that contain [...] 04/27/2006 Document Revised: 05/13/2018 Document Reviewed: 05/06/2018 [employer] Patient Education 2020 [employer] Follow Up Care 08/13/2022 09:09:20 With:Abby Cordova Address: [address] [place] [address]- Business (1) When:1 week Comments:Call for followup appointmentCall physician if symptoms worsen With:EMILIANA Narvaez Address: [facility]: c/o [address] [place] [address]- When:Within 1 Week(s) Comments:An appointment request was [facility] to [facility]. The office will contact you with an appointment. Thank you! With:Ronaldo Arcos M.D, INF Address: [address] [place], [place] [address] [address]- When:2 to 4 weeks With:YANETH AMIN Address: [address] [place] [phone]- Business (1) When:2 to 4 days Comments:No PCP required for surgery patient. Please follow up with ARGELIA. Thank you! [facility]03-29-2023 Evaluation note* Encounter Date Diagnosis Assessment Notes Treatment Notes Treatment Clinical Notes Jul, Obstructive sleep apnea (ICD-10 - G47.33) Jul,MI 45.0-49.9, adult (ICD-10 - Z68.42) [facility] Other 03-16-2023 Evaluation note* Encounter Date Diagnosis Assessment Notes Treatment Notes Treatment Clinical Notes Jul, Subacute osteomyelitis of right foot (ICD-10 - M86.271) Despite being on IV antibiotics the foot continues to open up and they are going to attempt a woundVAC to see if this can get the foot wound heal. Obviously if this does not show that this is helpful early on then further amputation would likely be needed. Patient only about a third to longterm through the planned 6- week treatment course. Informed patient to let me know how the wound VAC continues to work I still we will plan on stopping vancomycin at 6 weeks and less I can stop it sooner basedon potential further surgical excision Jul,Receiving intravenous antibiotic treatment at home (ICD-10 - Z79.2) [facility] Other 02-27-2023 Evaluation note* Encounter Date Diagnosis Assessment Notes Treatment Notes Treatment Clinical Notes Jun, UTI symptoms (ICD-10 - R39.9) [facility] Other 02-21-2023 Hospital Discharge instructions Patient Education [...] and water are not available, use hand family practice md. ?Change your dressing as told by your [...] antibiotic even if your condition improves. Take gpsj-guq-fnuluby and prescription medicines only as told by [...] 02/03/2009 Document Revised: 08/15/2019 Document Reviewed: 11/11/2016 [employer] Patient Education 2019 [employer]rav. Follow Up Care 07/01/2022 11:32:13 With:Santos Epperson Address: [facility]: c/o [address] [place] [address]- When:07/02/2022 14:41:37 [facility]02-21-2023 Evaluation + Plan noteExtracted from: Title:SOAP Note: Simple *Author:Ramiro Epperson DPM DDate:07/01/22 Impression and Plan Today I applied a Betadine dressing to the area with 4 x 4's and ABDs for compression also placed the patient into a below-knee Peters compressive dressing. He was instructed to elevate recommended hediscontinue the Eliquis for short period of time. Also recommended a reversal agent for the Eliquisto prevent further breakthrough bleeding he has an appointment tomorrow with wound care recommending staying in the ED for observation for a few hours with elevation. Follow-up in wound care tomorrowwith Dr. Santos epperson Extracted from:Title:ED NoteAuthor:Mark Vela DODate:07/01/22 Other postprocedural complic ations and disorders of [...] CLINIC Appointment Type:WC Follow Up Visit (FT) [facility]-20-2023 Evaluation note* Encounter Date Diagnosis Assessment Notes Treatment Notes Treatment Clinical Notes Jun, Primary insomnia (ICD-10 - F51.0 1) d/c zolpidem. discussed risk of fall with newly amputated foot and risk of car accident if driving on zolpidem. Will attempt lowest dose of new insomnia med and call with results. Jun,HF (congestive heart failure) (ICD-10 - I50.9)Matt states he is seeing a specialist in [place] for this severe problem. Jun,Type 2 diabetes mellitus with diabetic neuropathy, unspecified (ICD- 10 - E11.40)Discussed recent 3rd foot surgery with osteonecrosis. Followup w Dr. Romo for diabetes. [facility] Other 02-13-2023 Evaluation + Plan noteExtracted from:Title: Discharge NoteAuthor:Kennedy HARRIS MD PDate:06/23/22 Discharged to - Home independently Discharge Status: Improved Discharge Instructions Given: To patient Discharge disposition: Home health care Prescriptions reviewed with Patient 47 Minute in discharge time talking about recurrent osteomyelitis, diabetes treatment along with possible sepsis happening and requiring IV antibiotics. Discharge Diet(s): Calorie Controlled- 2000 Calorie Diet (06/20/22 15:46:00) Prescriptions ergocalciferol 50,000 intl units Cap, 56844 International_Unit= 1 cap(s), Oral, q7day ferrous sulfate [...] TID, PRN With When Contact Information SURAJ SHALONDA 06/30/2022 02:00 PM EST [address] [place], [place] [phone]- fflap (1) Additional Instructions: Santos Epperson In 5 days 06/25/2022 EST [facility]: c/o [address] [place] [address]- Additional Instructions: Osteomyelitis, Adult Extracted from:Title:ANES Post-operative Note - GeneralAuthor:Irineo Gonzalez Jr., DO GDate:06/20/22 Plan Transfer/Discharge: Transfer/Discharge Discharge when meets criteria ( From PACU to Ambulatory Surgery Unit, and To home ). Extracted from:Title:Pre-anesthesia - AdultAuthor:Irineo Gonzalez Jr., DO GDate: 06/20/22 Plan Citizen Of [place] Society of Anesthesiologists (ASA) physical status classification: Class IV. Anesthetic Preoperative Plan Anesthesia: General. . Anesthetic plan, risks, benefits, and alternatives discussed with the patient and/or family. Patient verbalized understanding. Adverse reactions, complications, and alternatives discujssed. Consentsigned and on chart.. Extracted from:Title:Infection Admission H&P *Author:Ronaldo Arcos M.D SDate: 06/20/22 Impression and Plan Diagnosis Recurring Right foot imfection at amp site. Orders She had PVRs just in May and they could not obtain the right ankle-brachial index. Not sure howgood the vascular supply is to this foot given the recurrence despite surgery of ongoing problems. MRI again shows findings with phlegmon/abscess and osteo-. Previous cultures were rather susceptiblegram- positive's. With amputation of involved bone down to good tissue he has been treated appropriately. Now is on broad vancomycin and Zosyn. For surgery again. May consider longer course of oral versus IV antibiotics based on new culture results upon discharge given patient's history of recurrentinfections at the site. Obviously if blood supply to this area is compromised healing will be another reason why he is having recurring issues. Extracted from:Title:SOAP Note: PodiatryAuthor:Argelia GOODSON Santos RDate:06/19/22 Impression and Plan Pt admitted from ER [...] npo at midnight for surgery tomorrow Extracted from:Title:ED NoteAuthor:Mario BROWN, Jabier Marx.Date:06/18/22 1. Osteomyelitis (M86.9: Ost eomyelitis, unspecified) 2. [...] artery disease (I25.10: Atherosclerotic heart disease of [place] coronary artery without angina pectoris) 11. Bipolar [...] EST, 100 mL/hr, Infuse over 30 minute(s), 06/18/2313:27:00 EST Sodium Chloride 0.9% intravenous solution, 1,000 mL, Soln-IV, IV, Once, Stop date 06/18/22 13:37:00EST, STAT, Start date 06/18/22 13:37:00 EST, mL/hr, [...] View XR Foot 3+ Views Right Extracted from:Title:Admission H & PAuthor:Fareed GILBERT, [facility] CenterdDate:06/18/22 61 y/o M w/mhx most sig for [...] mL, Soln-IV, IV Piggyback, q12hr for 10 day(s),Stop date 06/29/22 2:59:00 EST, Start date 06/19/22 3:00:00 EST, 200 mL/hr, Infuse over 90 minute(s) Basic Metabolic Panel Bi-level Positive Airway Pressure Cardiac Monitoring Communication Order Physician to Nursing Communication Order Physician to Nursing Communication Order Physician to Nursing Consult to Dietitian Adult Consult to Infectious Disease Physician Consult to Archaeologist Consult to Wound Care Diabetic/Calorie Control Diet [...] CLINIC Appointment Type:WC Follow Up Visit (FT) Diagnostic Tests Pending * Vancomycin Level Trough 06/25/22 [facility]02-13-2023 Hospital Discharge instructions Patient Education 06/23/2022 10:53:40 [...] Follow these instructions at home: Medicines Take yuli-kms-sljstus and prescription medicines only as told by [...] and water are not available, use hand family practice md. Do not use any products that contain [...] 04/27/2006 Document Revised: 05/13/2018 Document Reviewed: 05/06/2018 [employer] Patient Education 2020 [employer]. Follow Up Care 06/18/2022 12:44:22 With:Ronaldo Arcos Address: [facility] [place] [address]- Business (1) When:2 to 4 weeks Comments:Unable to contact office via phone or fax. Please call to schedule followup appointment. With:Santos Epperson Address: [facility]: c/o [address] [place] [address]- When:06/25/2022 10:15:00 With:SURAJ LIZ Address: [address] [place] [phone]- Business (1) When:06/30/2022 14:00:00 [facility]01-31-2023 Evaluation note* Encounter Date Diagnosis Assessment Notes Treatment Notes Treatment Clinical Notes May, Moderate episode of recurrent major depressive disorder (ICD-10 - F33.1) [facility] Other 01-27-2023 Evaluation note* Encounter Date Diagnosis Assessment Notes Treatment Notes Treatment Clinical Notes May, Type 2 diabetes mellitus with hy perglycemia (ICD-10 - E11.65) May,Long term (current) use of insulin (ICD-10 - Z79.4) May,rthritis (ICD-10 - M19.90)Prescription will be initiated for scooter through [employer] [facility] May,HF (congestive heart failure) (ICD-10 - I50.9)Patient presently under the care of [facility] cardiology. Reviewed medications. Stable but no improvement seen.. May,Osteomyelitis (ICD-10 - M86.9)Further care with John Cui. Reviewed notes from Dr. Arcos while in hospital. Presently on Levaquin with home health care. May,Neuropathy involving both lower extremities (ICD-10 - G57.93)Again unsafe to walk distances significant knee pain decreased sensation in legs. Would benefit from a scooter in the home. May,Type 2 diabetes mellitus with diabetic neuropathy, unspecified (ICD- 10 - E11.40) [employer] Other 12-09-2022 Evaluation + Plan noteExtracted from:Title: Discharge NoteAuthor:DANA GILBERT, HasanDate:04/18/22 Discharge To, Anticipated II - Home with [...] Contact Information Ramiro Epperson 04/16/2022 12:00 AM [facility] [address] [place] [address]- 0 fflap (1) [facility] c/o [facility] [address] [facility] [place], [place] [address] 6 fflap (1) Additional Instructions: Ernst Almendarez Within 1 to 2 weeks [address] [place] [address]- Business (1) Additional Instructions: SURAJCARRIE LIZ Within 3 to [address] [place] [address]- Business (1) Additional Instructions: [employer] - Post Operative Instructions (Revised 01/05/14) (Custom) Extracted from:Title:APSO NoteAuthor:DANA GILBERT, HasanDate:04/17/22 1. Acute on chronic systolic heart failure [...] artery disease (I25.10: Atherosclerotic heart disease of [place] coronary artery withoutangina pectoris) - coreg, statin 9. PAF (paroxysmal atrial fibrillation) (I48.0: Paroxysmal atrial fibrillation) - coreg eliquis (held) 10. History of DVT in [...] 10 day(s), # 20 tab(s), Refills(s) 0, Pharmacy:[facility], 180, cm, 04/14/22 11:50:00 EST, Height/Length Dosing, 135.5, kg, 04/14/22 11:50:00 EST, Weight Dosing doxycycline, 100 mg = 1 cap(s), Oral, BID, X 10 day(s), # 20 cap(s), Refills(s) 0, Pharmacy: [facility]5, 180, cm, 04/14/22 11:50:00 EST, Height/Length Dosing, 135.5, kg, 04/14/22 11:50:00 EST, Weight Dosing Capillary Glucose POC Capillary Glucose POC Capillary Glucose POC Capillary Glucose POC Discharge Patient Physical Therapy Additional Tx Physical Therapy Evaluate Patient, Develop a Plan of Care and Implement Plan Vancomycin Level Peak Extracted from:Title:SOAP Note: Simple *Author:Ramiro Epperson DPM DDate:04/17/22 Impression and Plan Today I applied a dry sterile dressing to the amputation site. Flaps appear to be viable. I applieda Peters compressive dressing I enforced with the patient the need for nonweightbearing and to keep his foot elevated at all times. Spoke with Dr. Choudhury was planning to hold the patient's Eliquis for short period of time I concurred. We will follow-up with me at the wound care center once discharged Extracted from:Title:DOUGLAS POSTOPAuthor:Jeffrey Butcher DO ADate:04/16/22 Plan Transfer/ Discharge: Patient can be discharged from PACU when criteria met. Condition good. Extracted from:Title:DOUGLAS PREOPAuthor:Jeffrey Butcher DO ADate:04/16/22 Plan Citizen Of [place] Society of Anesthesiologists (ASA) physical status classification: [...] Pt aware and desires to proceed. Extracted from:Title:APSO NoteAuthor:DANA GILBERT, HasanDate:04/16/22 1. Acute on chronic systolic heart failure [...] artery disease (I25.10: Atherosclerotic heart disease of [place] coronary artery withoutangina pectoris) - coreg, statin 9. PAF (paroxysmal atrial fibrillation) (I48.0: Paroxysmal atrial fibrillation) - priti cooper 10. History of DVT in adulthood (Z86.718: [...] Plan Oxygen Protocol Vancomycin Level Peak Extracted from:Title:Consult NoteAuthor:Tanesha GILBERT, Ernst BarreraDate:04/15/22 61-year-old male with histor y of PAF [...] artery disease (I25.10: Atherosclerotic heart disease of [place] coronary artery withoutangina pectoris) 9. PAF (paroxysmal atrial fibrillation) (I48.0: [...] prophylaxis (Z78.9: Other specified health status) Extracted from:Title:Infection Admission H&P *Author:Ronaldo Arcos M.D SDate: 04/15/22 Impression and Plan Diagnosis Hallux osteomyelitis RLE cellulitis vs stasis dermatitis vs BOTH. Orders Maintain broad abx iv. Surgery tomorrow with amputation. Should not need prolonged course given amputation assuming clean margins His RLE skin is warm/hot but appears more c/w stasis derm. Apply topical steroid cream for a few days. Leg elevated stressed. . Extracted from:Title:Podiatric surgeryAuthor:Ramiro Epperson DPM DDate:04/15/22 Impression and Plan Patient is osteomyelitis of [...] tomorrow at 530 he will be n.p.o. at7 AM. Extracted from:Title:APSO NoteAuthor:DANA GILBERT, HasanDate:04/15/22 1. Acute on chronic systolic heart failure (I50.23: Acute on chronic systolic (congestive) heart failure) - strict I and O, daily weight - bumex 2 mg IV bid - diurese still fluid overloaded - aldactone - coreg, losartan - echo - consult [facility] cardiology Ordered: 2. Cellulitis of both lower [...] artery disease (I25.10: Atherosclerotic heart disease of [place] coronary artery withoutangina pectoris) - coreg, losartan, statin 9. PAF [...] mL, Susp-Oral, Oral, q6hr PRN Indigestion, Routine, Startdate 04/14/22 15:51:00 EST bumetanide, 2 mg = [...] mL, Soln-IV, IV Piggyback, q12hr for 10 day(s),Stop date 04/25/22 1:59:00 EST, Start date 04/15/22 2:00:00 EST, 200 mL/hr, Infuse over 2 hour(s) Ambulate with Assistance Automated Diff Basic Metabolic Panel Below the Knee Intermittent Pneumatic Compression Device Bi-level Positive Airway Pressure Capillary Glucose POC Capillary Glucose POC Capillary Glucose POC Cardiac Diet Cardiac Monitoring CBC w/ Auto Diff Consult to Cardiology Consult to Infectious Disease Physician Consult to Archaeologist Consult to Wound Care Echo Transthoracic Complete [...] Weight XR Foot 3+ Views Right Extracted from:Title:Admission H & PAuthor:DANA GILBERT, HasanDate:04/14/22 1. Acute on chronic systolic heart failure (I50.23: Acute on chronic systolic (congestive) heart failure) - telemetry, troponin - strict I and O, daily weight - bumex 2 mg IV bid - aldactone - coreg, losartan - echo - consult [facility] cardiology 2. Cellulitis of both lower extremities [...] artery disease (I25.10: Atherosclerotic heart disease of [place] coronary artery withoutangina pectoris) - coreg, losartan, statin 9. PAF [...] (Z78.9: Other specified health status) - SCDs. marcos pt will require greater than 2 midnights [...] mL, Susp-Oral, Oral, q6hr PRN Indigestion, Routine, Startdate 04/14/22 15:51:00 EST bumetanide, 2 mg = [...] Consult to Infectious Disease Physician Consult to Archaeologist Echo Transthoracic Complete Education Heart Failure Evaluate [...] Weight XR Foot 3+ Views Right Extracted from:Title:ED NoteAuthor:Mark Vela DODate:04/14/22 CHF exacerbation (I50.9: Hea rt failure, unspecified) [...] Troponin 9 Hr. XR Chest Single View [facility]12-07-2022 Hospital Discharge instructions Patient Education 04/16/2022 18:31:08 [employer] - Post Operative Instructions (Revised 01/05/14) (Custom) [place], [place] Ramiro Epperson, HAMZAH, FACFAS POST OPERATIVE [...] feel free to call the doctor at: [phone] or [phone] Epperson paged. Patient signatureDate Dr. Ramiro Epperson, DPJoshua, FACFASDate Revised: 06-18 Follow Up Care 04/14/2022 11:43:04 With:Ernst Almendarez Address: [address] [place] [phone] Business (1) When:1 to 2 weeks With:SURAJ LIZ Address: [address] [place] [address]- Business (1) When:3 to 5 days With:Ramiro Epperson Address: [facility] [address] [facility] [place] [address]- 2 Business (1) [facility]: c/o [address] [place] [address]- 0 Business (1) When:04/16/2022 [facility]10-03-2022 Evaluation note* Encounter Date Diagnosis Assessment Notes Treatment Notes Treatment Clinical Notes Feb, Major depressive dis order, recurrent episode, moderate (ICD-10 - F33.1) [employer] Other 08-13-2022 NoteThe [facility] 12-02-2021 Evaluation + Plan noteExtracted from:Title:Discharge NoteAuthor: Fareed GILBERT, madDate:12/02/21 Discharged to - Home with family care [...] Oral, TID No qualifying data available Extracted from:Title:Progress/SOAP NoteAuthor:Quoc GILBERT, Jin Lafleurte:12/02/21 1. Cellulitis (L03.90: Cellu litis, unspecified) 2. Diabetic foot ulcers (E11.621: Type 2 diabetes mellitus with foot ulcer) 3. Coronary artery disease (I25.10: Atherosclerotic heart disease of [place] coronary artery withoutangina pectoris) 4. Chronic systolic heart failure (I50.22: [...] We are awaiting records from his primary underpresser hand. No plan for cardiac catheterization at this [...] can assess his LV function and have arecord of it for ourselves. He will continue Eliquis therapy for paroxysmal atrial fibrillation andpulmonary hypertension. Recommend increasing Imdur to 30 mg [...] Physician to Nursing Echo Transthoracic Complete Extracted from:Title:Podiatric surgeryAuthor:Ramiro Epperson DPM DDate:12/01/21 Impression and Plan Explained to the patient [...] treatment of his lower extremity issues. Extracted from:Title:APSO NoteAuthor:Kennedy HARRIS MD PDate:12/01/21 61-year-old male with past m edical history [...] artery disease (I25.10: Atherosclerotic heart disease of [place] coronary artery withoutangina pectoris) Continue patient on Eliquis, isosorbide Holding [...] Panel CBC w/ Auto Diff Consult to Archaeologist Hepatic Function Panel Magnesium Level MRI Foot w/o Contrast Left MRI Foot w/o Contrast Right Plan discussed with patient at bedside This report was transcribed using voice recognition software. Every effort was made to ensure accuracy, however, inadvertently computerized mail clerk bills mistakes may be present. Dr. Kennedy Harris Hospitalist at [facility] Extracted from:Title:Consult NoteAuthor:Quoc GILBERT, Jin Garcia:12/01/21 1. Cellulitis (L03.90: Cellu litis, unspecified) 2. Diabetic foot ulcers (E11.621: Type 2 diabetes mellitus with foot ulcer) 3. Coronary artery disease (I25.10: Atherosclerotic heart disease of [place] coronary artery withoutangina pectoris) Patient is had several episodes of substernal chest pressure mostly at rest, with known history of ischemic cardiomyopathy. As best I can tell his EF was 39% in the past but all of his cardiac studies have been at [facility]. Recommend we obtain those records from [...] Physician to Nursing Echo Transthoracic Complete Extracted from:Title:Admission H & PAuthor:Henri CHOUDHURY DO ADate:11/30/21 1. Cellulitis (L03.90: Cellu litis, unspecified) Patient with cellulitis of the left lower extremity a bogginess to the left heel though I do not see an open wound does appear white ?need I&D. Patient states it was from this heel that he saw achunk of tissue a few days prior to [...] significant erythema warmth tenderness he is at signi ficant risk of the very soon becoming septic. We will therefore treat aggressively with Zosyn and vancomycin. Obtain blood cultures. Obtained wound cultures. With history below we will attempt to balance pain control with avoiding suppression of respiratory drive several comorbidities below. We will consult with podiatry note patient did state that his underpresser hand at [facility] has in the past discouraged him [...] heel, there is a large ulcer without anydrainage on the plantar aspect of his right great toe that he suggest its chronic. Note he has being treated for chronic osteomyelitis with doxycycline. Get the opinion of podiatry 3. Coronary artery disease (I25.10: Atherosclerotic heart disease of [place] coronary artery withoutangina pectoris) Patient eats he has had percutaneous [...] at risk for diminished renal function. Would alsoask for their opinion regarding procedural interventions that would be recommended by podiatry for above as he has been deemed in the past patient's own history to be high risk and we will ask for rec ords from [facility] and from his underpresser hand Dr. Sylvester Ordered: Communication Order Physician to Nursing Consult to Cardiology 4. Chronic systolic heart failure (I50.22: Chronic systolic (congestive) heart failure) Patient has chronic orthopnea. Patient implies his underpresser hand from [facility] had recentlyintensified his diuretic therapy giving him metolazone and [...] event 8 years ago he had a Wilma filter. He is on Eliquis which we [...] above is pursued can then determine patient's p.o.status 11. Chronic kidney disease (N18.9: Chronic kidney disease, unspecified) States he is followed by frame fixer at [facility] states he has chronic kidney disease stage III. Will observe for any decline in renal function which he be at risk for with above 12. BPH (benign prostatic hyperplasia) (N40.0: Benign prostatic hyperplasia without lower urinary tract symptoms) Flomax, Proscar patient has had a prior history of urine retention last seen by Dr. Hdz in July 21. Depression (F32.A: Depression, unspecified) Continue Depakote 14. [...] Tab-ER, Oral, Daily, Routine, Start date 12/01/21 9:00:00EDT, 11/30/21 22:37:00 EDT losartan, 100 mg = 2 tab(s), Tab, Oral, Daily, Routine, Start date 12/01/21 9:00:00 EDT, 11/30/21 22:37:00 EDT ondansetron, 4 mg = 2 mL, Injection, IV Push, q6hr PRN Nausea, Routine, Start date 12/01/21 1:40:00EDT, 12/01/21 1:40:00 EDT oxycodone, 20 mg = 1 tab(s), Tab-ER, Oral, q12hr, Routine, Start date 11/30/21 23:00:00 EDT, 11/30/21 22:58:00 EDT oxycodone, 5 mg = 1 tab(s), Tab, Oral, q4hr for 5 day(s), Stop date 12/05/21 22:59:00 EDT, Routine,Start date 11/30/21 23:00:00 EDT, 11/30/21 23:00:00 EDT [...] Monitoring CBC w/ Auto Diff Consult to Archaeologist Diabetic/Calorie Control Diet Elevate Head of Bed [...] RESUSCITATE Comfort Care arrest. He did state Anabel tired of fighting was agreeable to above plan. [facility]06-23-2022 NoteThe [facility]05-21-2022 NoteThe [facility]04-21-2022 NoteThe [facility]03-27-2022 NoteThe [facility]03-24-2022 Hospital Discharge instructions Patient Education 08/01/2021 09:02:00 [...] urethra. Follow these instructions at home: Take [id number] and prescription medicines only as told by [...] 04/27/2006 Document Revised: 03/22/2019 Document Reviewed: 06/01/2017 [employer] Patient Education 2020 [employer] 08/01/2021 09:01:56 Calorie Counting for Weight [...] 04/27/2006 Document Revised: 01/14/2019 Document Reviewed: 03/27/2017 [employer] Patient Education 2020 [employer] Follow Up Care 07/26/2021 13:15:45 With:WILDER GILBERT, Teddy Cross, URL Address: [address] [place] [phone]- [phone] When:12/01/2021 [facility] [id number] Evaluation note* Encounter Date Diagnosis Assessment Notes Treatment Notes Treatment Clinical Notes Jun, Obstructive sleep apnea (ICD-10 - G47.33) Jun,MI 45.0-49.9, adult (ICD-10 - Z68.42) [employer] Other chinx complaint+Reason for visit Narrative* Chief Complaint Amb Documentation COVID + ROBYN/Insomnia UnknownReason for VisitCOVID-19 Insomnia CHF (congestive heart failure) Insomnia Obstructive sleep apnea hypopnea, severe Restless legs syndrome [facility] Work Phone: Evaluation + Plan note Future Appointments Appointment Date:11/04/2021 03:00:00 PM Scheduled Provider:Teddy HDZ MD Location:[facility] Appointment Type:URO Office Visit [facility] Evaluation + Plan note Future Appointments Appointment Date:05/01/2022 11:15:00 AM Scheduled Provider:Mark Zepeda MD [facility] Type:WC Follow Up Visit (FT) Appointment Date:05/06/2022 02:45:00 PM Scheduled Provider:Ramiro Epperson DPM [facility] Appointment Type:WC Follow Up [facility] (FT) [facility] Future Appointments Appointment Date:06/04/2022 11:30:00 AM Scheduled Provider:Santos Epperson DPM Location[facility] Appointment Type:WC Follow Up Visit (FT) [facility] Future Appointments Appointment Date:06/18/2022 11:30:00 AM Scheduled Provider:Santos Epperson DPM [facility] Appointment Type:WC Follow Up Visit (FT) [facility] Future Appointments Appointment Date:06/25/2022 10:15:00 AM Scheduled Provider:Santos Epperson DPM [facility] Appointment Type:WC Follow Up Visit (FT) [facility] Future Appointments Appointment Date:08/06/2022 11:45:00 AM Scheduled Provider:Santos Epperson DPM [facility] Appoint[facility] Type:WC Follow Up Visit (FT) Appointment Date:08/07/2022 10:30:00 AM Scheduled Provider:Mark Zepeda MD [facility] Appointment Type:WC Follow Up Visit (FT) Appointment Date:09/02/2022 02:15:00 PM Scheduled Provider:Teddy HDZ MD Location:[facility] Future Appointments Appointment Date:08/13/2022 08:00:00 AM Scheduled Provider:Santos Epperson DPM [facility] Appoint[facility] Type:WC Follow Up Visit (FT) Appointment Date:08/14/2022 11:30:00 AM Scheduled Provider:Mark Zepeda MD [facility] Appointment Type:WC Follow Up Visit (FT) Appointment Date:09/02/2022 02:15:00 PM Scheduled Provider:Teddy HDZ MD Location:[facility] Appointment Type:URO Office Visit [facility] + Plan note Future Appointments Appointment Date:08/14/2022 11:30:00 AM Scheduled Provider: Location:[facility] Appointment Type:Surgery FT Appointment Date:08/27/2022 11:15:00 AM Scheduled Provider:Santos Epperson DPM [facility] Appoint[facility] Type:WC Follow Up Visit (FT) Appointment Date:09/02/2022 02:15:00 PM Scheduled Provider:Teddy HDZ MD Location:[facility] Appointment Type:[facility]O [facility] Future Appointments Appointment Date:09/02/2022 02:15:00 PM Scheduled Provider:Teddy HDZ MD Location:[facility] Appointment Type:URO Office Visit Appointment Date:09/03/2022 09:00:00 AM Scheduled Provider:Santos Epperson DPM [facility] App[facility] Type:WC Follow Up Visit (FT) [facility] Future Appointments Appointment Date:09/03/2022 09:00:00 AM Scheduled Provider:Santos Epperson DPM Location[facility] Appointment Type:WC Follow Up Visit (FT) [facility] Evaluation + Plan note Future Appointments Appointment Date:09/10/2022 10:45:00 AM Scheduled Provider:Santos Epperson DPM Location:[facility] Appointment Type:WC Follow Up Visit (FT) [facility] Future Appointments Appointment Date:10/22/2022 10:30:00 AM Scheduled Provider:Santos Epperson DPM Location:[facility] Appointment Type:WC Follow Up Visit (FT) [facility] Future Appointments Appointment Date:02/17/2023 03:00:00 PM Scheduled Provider:Ramiro Epperson DPM Location:[facility] Appointment Type: New Patient 30 (FT) Diagnostic Tests Pending * Wound Culture 02/05/23 [facility] Future Appointments Appointment Date:03/11/2023 10:00:00 AM Scheduled Provider:Santos Epperson DPM Location:[facility] Appointment Type:WC Follow Up Visit (FT) [facility] note Future Appointments Appointment Date:04/08/2023 09:15:00 AM Scheduled Provider:Santos Epperson DPM Location:[facility] Appointment Type:WC Follow Up Visit (FT) [facility] note Future Appointments Appointment Date:04/22/2023 10:30:00 AM Scheduled Provider:Santos Epperson DPM Location:[facility] Appointment Type:WC Follow Up Visit (FT) [facility] note Future Appointments Appointment Date:05/27/2023 11:30:00 AM Scheduled Provider:Santos Epperson DPM Location:[facility] Appointment Type:WC Follow Up Visit (FT) [facility] note Future Appointments Appointment Date:06/24/2023 10:15:00 AM Scheduled Provider:Santos Epperson DPM Location:[facility] Appointment Type:WC [facility] (FT[facility] noteNo InformationNortChiral [facility] Other evaluation noteNo assessment information available [facility] Work Phone: evaluation noteNoFundera Other Evaluation note* Diagnosis Onset Date Resolution Status Insomnia acuteCOVID-19acuteInsomniaacuteCHF (congestive heart failure)chronicInsomnia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 2024 Team Status: Inactive Member Role Status Michelle Liz MD Primary Care Provider Active Start: October 14, 2023 End: October 13joao Hernandez , MDAttending ProviderActiveStart: October 14, 2023 End: October 14, 2023 Team Status: Active Member Role Status Michelle Liz MD Primary Care Provider Active Start: November 10, 2023 CAMILA FrenchCAttending ProviderActiveStart: November 10, 2023 Team Status: Active Member Role Status Michelle Liz MD Primary Care Provider Active Start: November 11, 2023 Shaikh Taryn MDAttending ProviderActiveStart: November 11, 2023 Team Status: Inactive Member Role Status Dates Suraj Liz MD Primary Care Provider Active Start: November 11, 2023 End: November 10nabil Emery DPM MSAttending ProviderActiveStart: November 11, 2023 End: November 11, 2023 Team Status: Active Member Role Status Michelle Liz MD Primary Care Provider Active Start: November 12, 2023 Shaikh Taryn MDAttending ProviderActiveStart: November 12, 2023 Team Status: Inactive Member Role Status Michelle Liz MD Primary Care Provider Active Start: December 28, 2023 End: December 27keyur Barr MDAttending ProviderActiveStart: December 28, 2023 End: December 28, 2023 Team Status: Active Member Role Status Dates Suraj Liz MD Primary Care Provide r, Attending Provider Active Start: August 05, 2023 Team Status: Inactive Member Role Status Dates Suraj Liz MD Primary Care Provide r, Attending Provider Active Start: August 13, 2023 End: August 13, 2023 Team Status: Active Member Role Status Dates Suraj Liz MD Primary Care Provider Active Start: September 07, 2023 Nicolasaweston GrantNima gao ProviderActiveStart: September 07, 2023 Team Status: Inactive Member Role Status Dates Suraj Liz MD Primary Care Provide r, Attending Provider Active Start: September 09, 2023 End: September 09, 2023 Team Status: Inactive Member Role Status Dates Suraj Liz MD Primary Care Provider Active Ehab A EltahawyAttending ProviderActive Team Status: Inactive Member Role Status Dates Suraj Liz MD Primary Care Provider Active Ramiro Epperson , DPMAttending ProviderActive Team Status: Inactive Member Role Status Dates Suraj Liz MD Primary Care Provider, Attending Sharon paul Active Team Status: Inactive Member Role Status Dates Suraj Liz MD Primary Care Provider Active Santos Epperson , DPMAttending ProviderActive Team Status: Inactive Member Role Status Dates Suraj Liz MD Primary Care Provider Active Ronaldo Arcos MDAttending ProviderActive Team Status: Inactive Member Role Status Dates Santos Epperson , DPM Attending Provider Active Team Status: Active Member Role Status Dates NON STAFF Primary Care Provider Active Team Status: Inactive Member Role Status Dates Ramiro Epperson , DPM Attending Provider Active Team Status: Inactive Member Role Status Dates NON STAFF Primary Care Provider Active Start: April 23, 2023 End: April 23, 2023Saturnino March ProviderActiveStart: April 23, 2023 End: April 23, 2023 Team Status: Inactive Member Role Status Dates Suraj Liz MD Attending Provider Active St art: May 12, 2023 End: May 12, 2023 Team Status: Inactive Member Role Status Dates Suraj Liz MD Primary Care Provider Active Start: June 09, 2023 End: June 09, 2023Ehab A EltahawyAttending ProviderActiveStart: June 09, 2023 End: June 09, 2023 Team Status: Inactive Member Role Status Dates Suraj Liz MD Attending Provider Active St art: June 12, 2023 End: June 12, 2023 Team Status: Active Member Role Status Dates Suraj Liz MD Primary Care Provider Active Start: July 13, 2023 Jovanny Perdomo ProviderActiveStart: July 13, 2023 Team Status: Inactive Member Role Status Michelle Liz MD Primary Care Provide r, Attending Provider Active Start: December 29, 2023 End: December 29, 2023 Team Status: Active Member Role Status Michelle Liz MD Primary Care Provider Active Start: January 19, 2024 Ayjoaquim Barr , MDAttending ProviderActiveStart: January 19, 2024 Team Status: Active Member Role Status Michelle Liz MD Primary Care Provider Active Start: March 02, 2024 Aya Abstanislawh , MDAttending ProviderActiveStart: March 02, 2024 Team Status: Inactive Member Role Status Michelle Liz MD Primary Care Provider Active Start: March 02, 2024 End: March 02joao Hernandez , MDAttending ProviderActiveStart: March 02, 2024 End: March 02, 2024 Team Status: Inactive Member Role Status Michelle Liz MD Primary Care Provider Active Start: March 02, 2024 End: March 02keyur Barr , MDAttending ProviderActiveStart: March 02, 2024 End: March 02, 2024 Team Status: Active Member Role Status Michelle Liz MD Primary Care Provide r, Attending Provider Active Start: March 03, 2024 Team Status: Inactive Member Role Status Michelle Liz MD Primary Care Provide r, Attending Provider Active Start: March 04, 2024 End: March 04, 2024Team MemberRelationshipSpecialtyStart DateEnd Date Laz Romo MD [address] [place] [address] PCP - UgimnidPceehqicrbtiu46/28/24Team MemberRelationshipSpecialtyStart DateEnd Date Laz Romo MD [address] [place] [address] PCP - HrymvlaXjbcdrvcarlcr34/28/24Team MemberRelationshipSpecialtyStart DateEnd Date Suraj Liz MD [address] [facility] [place] [address] PCP - GeneralFamily Krzucnbg92/7/24Team MemberRelationshipSpecialtyStart DateEnd Date Suraj Liz MD [address] [facility] [place] [address] PCP - GeneralFamily Vdjlomdl60/7/24Team MemberRelationshipSpecialtyStart DateEnd Date Suraj Liz MD [address] [facility] [place] [address] PCP - GeneralFamily Uaqqkpqj75/7/24Team MemberRelationshipSpecialtyStart DateEnd Date Suraj Liz MD [address] [facility] [place] [address] PCP - GeneralFamily Engmewey34/7/24Team MemberRelationshipSpecialtyStart DateEnd Date Suraj Liz MD [address] [facility] [place] [address] PCP - General09/30/18Team MemberRelationshipSpecialtyStart DateEnd Date Suraj Liz MD [address] [facility] [place] [address] PCP - GeneralFamily Nwjtpkoz16/7/24Team MemberRelationshipSpecialty[place] [address] [place] [id number] PCP - [facility]09/30/18 Team Status: Inactive Member Role Status Dates Suraj Liz MD Primary Care Provide r, Attending Provider Active Start: July 13, 2024 End: July 13, 2024 Team Status: Active Member Role Status Dates Suraj Liz MD Primary Care Provider Active Start: July 23, 2024 Zaheer Ruiz DOAttending ProviderActiveStart: July 23, 2024 Team Status: Inactive Member Role Status Dates Suraj Liz MD Primary Care Provider Active Start: July 23, 2024 End: July 23Chevy Hylton ProviderActiveStart: July 23, 2024 End: July 23, 2024Team MemberRelationshipSpecialtyStart DateEnd Date Suraj Liz MD PCP - [facility]03/17/24Team MemberRelationshipSpecialtyStart DateEnd Date Suraj Liz MD [facility]03/17/24 Team Status: Active Member Role Status Dates Suraj Liz MD Primary Care Provider Active Start: August 04, 2024 Elsa Benson CMAAttending ProviderActiveStart: August 04, 2024 Team Status: Inactive Member Role Status Dates Suraj Liz MD Primary Care Provide r, Attending Provider Active Start: September 01, 2024 End: September 01, 2024Team MemberRelationshipSpecialtyStart DateEnd Date Suraj Liz MD [address] [place] [phone] PCP [facility]09/27/24Team MemberRelationshipSpecialtyStart [place] [address] [place] [address] [place] [address] [facility] Team Status: Active Member Role Status Dates Suraj Liz MD Primary Care Provider Active Start: January 06, 2025 Ronaldo Arcos MDAttending ProviderActiveStart: January 06, 2025 Team Status: Active Member Role Status Dates Suraj Liz MD Primary Care Provider Active Start: January 16, 2025 Elsa Benson CMAAttroyce ProviderActiveStart: January 16, 2025 Team Status: Inactive Member Role Status Dates Suraj Liz MD Primary Care Provider Active Start: February 08, 2025 End: February 08, 2025Saturnino March ProviderActiveStart: February 08, 2025 End: February 08, 2025 Team Status: Active Member Role/Relationship Status Michelle Liz MD Primary Care Provider Active Team Status: Inactive Member Role/Relationship Status Michelle Liz MD Primary Care Provider Active Start: December 29, 2024 End: December 29ya AbugharbyeRICHARD gavinttending ProviderActiveStart: December 29, 2024 End: December 29, 2024 Team Status: Active Member Role/Relationship Status Michelle Liz MD Primary Care Provider Active Start: January 06, 2025 Saturnino Nguyễn ProviderActiveStart: January 06, 2025 Team Status: Active Member Role/Relationship Status Michelle Liz MD Primary Care Provider Active Start: January 16, 2025 Kelsey Lopez ProviderActiveStart: January 16, 2025 Team Status: Inactive Member Role/Relationship Status Michelle Liz MD Primary Care Provider Active Start: February 08, 2025 End: February 08, 2025Saturnino March ProviderActiveStart: February 08, 2025 End: February 08, 2025 Team Status: Active Member Role/Relationship Status Michelle Liz MD Primary Care Provider Active Start: March 06, 2025 Ehab A EltahawyAttending ProviderActiveStart: March 06, 2025 Ehab A EltahawyReferring ProviderActiveStart: March 06, 2025 Team Status: Inactive Member Role/Relationship Status Michelle Liz MD Primary Care Provider Active Start: March 08, 2025 End: March 08joao Hernandez MDAttending ProviderActiveStart: March 08, 2025 End: March 08, 2025 (unrecognized sect ion and content) No Status [...] section and content) DATE CREATED AUTHOR 01/14/2022 [facility] DATE CREATED AUTHOR AUTHOR'S ORGANIZ ATION 04/07/2022 [facility] DATE CREATED AUTHOR AUTHOR'S ORGANIZ ATION 07/26/2024 [facility] DATE CREATED AUTHOR AUTHOR'S ORGANIZ ATION 07/27/2024 [facility] DATE CREATED AUTHOR AUTHOR'S ORGANIZ ATION 07/28/2024 [facility] DATE CREATED AUTHOR AUTHOR'S ORGANIZ ATION 07/29/2024 [facility] DATE CREATED AUTHOR AUTHOR'S ORGANIZ ATION 07/31/2024 [facility] DATE CREATED AUTHOR AUTHOR'S ORGANIZ ATION 08/01/2024 [facility] DATE CREATED AUTHOR AUTHOR'S ORGANIZ ATION 08/03/2024 [facility] DATE CREATED AUTHOR AUTHOR'S ORGANIZ ATION 12/30/2024 [facility] DATE CREATED AUTHOR AUTHOR'S ORGANIZ ATION 01/03/2025 [facility] DATE CREATED AUTHOR AUTHOR'S ORGANIZ ATION 01/04/2025 [facility] DATE CREATED AUTHOR AUTHOR'S ORGANIZ ATION 01/05/2025 [facility] DATE CREATED AUTHOR AUTHOR'S ORGANIZ ATION 01/06/2025 [facility] DATE CREATED AUTHOR AUTHOR'S ORGANIZ ATION 01/07/2025 [facility] DATE CREATED AUTHOR AUTHOR'S ORGANIZ ATION 01/08/2025 [facility] DATE CREATED AUTHOR AUTHOR'S ORGANIZ ATION 01/09/2025 [facility] DATE CREATED AUTHOR AUTHOR'S ORGANIZ ATION 01/10/2025 [facility] DATE CREATED AUTHOR AUTHOR'S ORGANIZ ATION 01/11/2025 [facility] DATE CREATED AUTHOR AUTHOR'S ORGANIZ ATION 01/12/2025 [facility] DATE CREATED AUTHOR AUTHOR'S ORGANIZ ATION 01/13/2025 [facility] DATE CREATED AUTHOR AUTHOR'S ORGANIZ ATION 01/14/2025 [facility] DATE CREATED AUTHOR AUTHOR'S ORGANIZ ATION 01/15/2025 [facility] DATE CREATED AUTHOR AUTHOR'S ORGANIZ ATION 01/16/2025 [facility] DATE CREATED AUTHOR AUTHOR'S ORGANIZ ATION 02/10/2025 [facility] DATE CREATED AUTHOR AUTHOR'S ORGANIZ ATION 02/28/2025 [facility] DATE CREATED AUTHOR AUTHOR'S ORGANIZ ATION 03/20/2025 [facility] Goals (unrecognized section and content) Goals may [...] BE BASED ON THE PRIMARY CLINICAL RECORDS. [facility] [employer] [facility]. provides no warranty or guarantee of the accuracy or completeness of information in this document.
== END 2025-03-22 13:24 | disposition home or self-care (01) ==
LOC: WC 13:23
PROVIDERS: PCP Internal Medicine Interventional Cardiology; Visit Provider Physician Assistant
DX: E11.621 Type 2 diabetes mellitus with foot ulcer (principal); L97.412 Non-pressure chronic ulcer of right heel and midfoot with fat layer exposed
CPT/HCPCS: 11043

== ENCOUNTER 2025-05-10 08:58 | Outpatient (RCR) | payer MEDICARE, MEDICAID, SELFPAY ==
[2025-04-21 11:27] VITALS: BP 166/85
[2025-04-21] MEDS: BUMETANIDE 1 MG/4 ML VIAL 2 MG IVP (11:27)
[2025-04-21 11:42] VITALS: BP 166/85; PULSE 75; TEMP 36.4; O2SAT 95
[2025-05-10 10:32] VITALS: BP 147/85; BP 149/85; PULSE 90; TEMP 36.7; O2SAT 94
[2025-05-10] MEDS: BUMETANIDE 1 MG/4 ML VIAL 3 MG IVP (10:32)
== END 2025-05-10 23:59 | disposition home or self-care (01) ==
LOC: INF 08:58
PROVIDERS: PCP Internal Medicine Interventional Cardiology; Visit Provider Internal Medicine Interventional Cardiology
DX: I50.9 Heart failure, unspecified (principal)
CPT/HCPCS: 96374